=== PATIENT | male | born 1950 | race Caucasian/White ===

== ENCOUNTER → 2017-08-21 | Outpatient (CLI) | payer MEDICARE ==
[~2017-08-21] MED LIST: AMOX-358 PO; AMT25T PO; ASPI-983 PO; CARV3.12 PO; CARV6.25 PO; CLON0.5T3 PO; CLOP75TA69 PO; CYCL10TA9 PO; DILT240C87 PO; EPIN0.3P3 IJ; FAMO-119 PO; GABA800T PO; HYDR-3720 PO; HYDR-3812 PO; LORTAB; NEURONTIN; NITR0.4T SL; OXYC-471 PO; PRAV20TA3 PO; PRD20T PO; SIMV40TA4 PO; TIAZAC; ZOLP5TAB7 PO; [UNRECOGNIZED DRUG - OTHER]
--- NOTE | 2017-08-21 14:35 | Diagnostic Imaging Report ---
PA and lateral views of the chest. INDICATION: Chest pain. FINDINGS: The lungs are hyperinflated with no focal infiltrate. No effusion or pneumothorax. The mediastinum and connor appear unremarkable. The heart size is normal. Pulse generator projecting over the anterior left chest wall is seen. IMPRESSION: COPD. Dictated by: Dictated on workstation # [id number]
== END ==
LOC: RAD 14:09
PROVIDERS: ATTEND Family Medicine
DX: J44.9 Chronic obstructive pulmonary disease, unspecified (principal)
CPT/HCPCS: 71020

== ENCOUNTER 2017-08-28 06:46 | Day surgery (SDC) | payer MEDICARE ==
[2017-08-28] VITALS (9 sets, daily range): BP systolic 101–114; BP diastolic 67–88
[~2017-08-28] VITALS: Ht 180.3 cm; Wt 55.8 kg
[2017-08-28] MEDS ORDERED: HEParin (CATH LAB) 2,000 ML IV ONE (06:49)
[2017-08-28] MEDS ORDERED: NS IV 1000 ML 1,000 ML ONE (06:49)
[2017-08-28] MEDS ORDERED: LIDOCAINE 1% INJ 50 ML (XYLOCAINE) VIAL ONE (06:49)
[2017-08-28 07:16] LABS: MEAN PLATELET VOLUME 9.7 FL (7.4-10.4); RED BLOOD COUNT 4.53 10^6/uL (4.35-5.85); RED CELL DISTRIBUTION WIDTH 12.4 % (10.0-14.5); WHITE BLOOD COUNT 5.8 10^3/uL (4.3-11.0)
[2017-08-28 07:28] LABS: INR 0.9 (0.8-1.4); PROTHROMBIN TIME PATIENT 12.7 SEC (12.2-14.7)
[2017-08-28] MEDS ORDERED: NS IV 1000 ML 1,000 ML IV SCH ×3 (07:30→10:52)
[2017-08-28] MEDS ORDERED: CLON1TAB3 PO (07:33)
[2017-08-28] MEDS ORDERED: PRIM50TA PO (07:33)
[2017-08-28 07:43] LABS: ALANINE AMINOTRANSFERASE 13 U/L (0-55); ALBUMIN 4.2 GM/DL (3.2-4.5); ANION GAP 12 MMOL/L (5-14); ASPARTATE AMINO TRANSFERASE 24 U/L (5-34); BILIRUBIN,TOTAL 1.1 MG/DL (0.1-1.0); BLOOD UREA NITROGEN 17 MG/DL (7-18); BUN/CREATININE RATIO 17; CALCIUM 8.8 MG/DL (8.5-10.1); CARBON DIOXIDE 25 MMOL/L (21-32); CHLORIDE 101 MMOL/L (98-107); CHOLESTEROL 173 MG/DL (< 200); CREATININE SERUM 0.98 MG/DL (0.60-1.30); DIRECT LDL 95 MG/DL (1-129); GFR ESTIMATED > 60; GLUCOSE 76 MG/DL (70-105); POTASSIUM 3.6 MMOL/L (3.6-5.0); SODIUM 138 MMOL/L (135-145); TOTAL PROTEIN 7.1 GM/DL (6.4-8.2); TRIGLYCERIDES 86 MG/DL (<150); VLDL CHOLESTEROL 17 MG/DL (5-40)
[2017-08-28] MEDS ORDERED: fentaNYL INJECTION 100 MCG/2 ML AMP ONE (09:55)
[2017-08-28] MEDS ORDERED: MIDAZOLAM 2 MG/2 ML (VERSED) VIAL ONE (09:55)
[2017-08-28] MEDS ORDERED: diphenhydrAMINE 50 MG/ML INJ (BENADRYL) ONE (09:55)
--- NOTE | 2017-08-28 10:52 | Cardiac Procedure Note-CS/ASA ---
Pre-Procedure Note Pre-Op Procedure Note H&P Reviewed The H&P was reviewed, patient examined and no changes noted. Date H&P Reviewed: Aug 28, 2017 Time H&P Reviewed: 10:15 Conscious Sedation Pre-Proced Time Reviewed: 10:15 ASA Class: 3 Airway Mallampati Classification: ([place] appropriate class) I. II. III, IV Lungs Heart ASA score ASA 1: a normal healthy patient ASA 2: a patient with a mild systemic disease (mid diabetes, controlled hypertension, obesity ASA 3: a patient with a severe systemic disease that limits activity (angina , COPD, prior Myocardial infarction) ASA 4: a patient with an incapacitating disease that is a constant threat to life (CHF, renal failure) ASA 5: a moribund patient not expected to survive 24 hrs. (ruptured aneurysm) ASA 6: a declared brain patient whose organs are being harvested. For emergent operations, add the letter E after the classification Grade 2 Sedation Plan: Analgesia, Amnesia, Plan communicated to team members, Discussed options with patient/fam, Discussed risks with patient/fam Note The patient is an appropriate candidate to undergo the planned procedure, sedation, and anesthesia. The patient immediately re-assessed prior to indication. POORNIMA GRAVES MD FACP FAC CCDS Aug 28, 2017 10:52
--- NOTE | 2017-08-28 10:56 | Discharge Inst-Post CATH ---
Discharge Inst-CATH Post Cardiac Cath D/C Inst Follow Up/Plan F/u with Dr Ramsey in 2 weeks CARDIAC CATH DISCHARGE INSTRUCTIONS *Hold Metformin for 48 hours post heart cath. ACTIVITY * Go Home directly and rest. * Limit activity of the leg (or wrist if it was used) for 7 days including aerobics, swimming, jogging, bicycling, etc. * Restrict stair-climbing for 7 days if possible, if not, climb up with your non -cath leg, then bring together on the same step. * Avoid lifting, pushing, pulling or excessive movement of the affected extremity for 7 days. * Customary sexual activity may be resumed after 2 days-use caution not to use a position that strains or causes pain to the affected extremity. * No driving for 24 hours. * NO SMOKING. * Avoid straining for bowel movements for 7 days. * Gentle walking on level ground is allowed. * Returning to work will depend on the type of procedure and the results. Your doctor will discuss this with you. CALL YOUR DOCTOR FOR ANY OF THE FOLLOWING: *If bleeding from the puncture site occurs- Apply gentle pressure to site with clean cloth and call your doctor or EMS. * If a knot or lump forms under the skin, increases in size, or causes pain. * If bruising appears to be worsening or moving further down your leg instead of disappearing. * Temperature above 101 F. CARE OF YOUR GROIN INCISION; * Bruising or purple discoloration of the skin near the puncture site is common. * You may shower only, no bathtub bathing for 5 days. Be careful to avoid slipping as your leg may feel stiff. * If a closure device was used on your femoral artery, please see the attached guide regarding care of the device and your leg. * REMOVE the dressing from your groin the next day after your procedure in the shower. CARE OF YOUR WRIST INCISION; * Bruising or purple discoloration of the skin near the puncture site is common. * You may shower. * DO NOT submerge wrist. * Remove dressing in 24 hours. POORNIMA RAMSEY MD [facility] CCDS Aug 28, 2017 10:56
--- NOTE | 2017-08-28 10:57 | Discharge Inst-Cardiology ---
Discharge Inst-Cardiac Discharge Medications Continued Medications: Aspirin (Aspirin EC) 81 Mg Tablet.dr 81 MG PO BID Clonazepam (Clonazepam) 1 Mg Tablet 1 MG PO DAILY, TAB Clopidogrel Bisulfate (Plavix) 75 Mg Tablet 75 MG PO DAILY Cyclobenzaprine HCl (Cyclobenzaprine HCl) 10 Mg Tablet 10 MG PO PRN, #90 Epinephrine (Epipen 2-Jose) 0.3 Mg/0.3 Ml Auto.injct 0.3 MG IJ UD PRN for SHORTNESS OF BREATH, #1 PACKET 0 Refills Oxycodone HCl/Acetaminophen (Oxycodone-Acetaminophen 5-325) 1 Each Tablet 5 EACH PO, TAB Pravastatin Sodium (Pravastatin Sodium) 20 Mg Tablet 20 MG PO DAILY, TAB Primidone (Primidone) 50 Mg Tablet 50 MG PO HS, TAB Zolpidem Tartrate (Zolpidem Tartrate) 5 Mg Tablet 5 MG PO HS PRN for SLEEP Orders-Post D/C & Referrals Pneu Vac Indicated: Yes POORNIMA GRAVES MD FACP FAC CCDS Aug 28, 2017 10:57
[2017-08-28] MEDS ORDERED: PATIENT MAY USE OWN MEDS, ALL PO SCH (11:00)
--- NOTE | 2017-08-28 12:55 | CARDIAC CATHETERIZATION ---
DATE OF SERVICE: 08/28/2017 The patient is a 67-year-old man with known coronary artery disease who has been experiencing increasing shortness of breath, palpitations, chest discomfort. Cardiac catheterization was carried out today for further cardiac evaluation as the basis of his symptoms. PROCEDURE: He was brought to the cardiac catheterization laboratory in a fasting state. Right groin was prepared and draped in the usual sterile fashion. 1% lidocaine was used for local anesthesia. Modified Seldinger technique to advance a 5-Montserratian sheath into the right femoral artery. A 5-Montserratian JL4 catheter used for left coronary angiography. 5-Montserratian JR4 catheter was used for right coronary angiography. 5-Montserratian pigtail catheter was used for left heart catheterization and left ventricular angiography. 5-Montserratian pigtail catheter was pulled back to the aortic arch and aortic arch angiography was performed with runoff down to the level of the aortoiliac bifurcation. The catheter was removed. Angiography of the right femoral artery was carried out through the sheath. Mynx was used to achieve hemostasis. He tolerated the procedure well. HEMODYNAMICS: Left ventricular end-diastolic pressure following coronary angiography was 9 mmHg. There was no significant pressure gradient on pullback across the aortic valve. Ascending aortic pressure was 105/62 with a mean of 82 mmHg. LEFT VENTRICULAR ANGIOGRAPHY: Left ventricular angiography was carried out in the right anterior oblique projection. Global left ventricular systolic function is normal. No regional wall motion abnormalities are seen. Left ventricular ejection fraction is approximately 60%. There does not appear to be significant mitral regurgitation. AORTIC ARCH ANGIOGRAPHY: Aortic arch angiography did not indicate any significant thoracic aortic aneurysm or dissection, to the extent visualized. The neck arteries, to the extent seen, do not exhibit any significant obstructive disease. No abdominal aortic aneurysm is seen either. CORONARY ANGIOGRAPHY: Left main coronary artery is free of significant disease. Left anterior descending artery has a widely patent standard area in its proximal and mid portions without any significant restenosis. The first obtuse marginal branch, the left circumflex is of a high origin and has approximately 50% stenosis at its ostium and is of small caliber. The right coronary artery is dominant and does not exhibit significant disease. There appears to be only mild plaque involving the right coronary artery. CONCLUSIONS: 1. Angiographically mild coronary artery disease. Widely patent stent in the proximal and mid left anterior descending artery. Approximately 50% ostial stenosis of small caliber, high first obtuse marginal branch of the left circumflex artery. 2. Normal global left ventricular systolic function with an ejection fraction approximately 60%. 3. Normal left ventricular end-diastolic pressure. 4. No evidence of any thoracic aortic aneurysm or dissection. 5. No significant mitral regurgitation. DISCUSSION AND RECOMMENDATIONS: Based on results of this study, his symptoms do not appear to be of cardiac origin. Continuing cardiac risk factor modification is advised and was discussed. Outpatient followup is advised. Job ID: [id number] DocumentID: [id number] Dictated Date: 08/28/2017 11:14:51 [employer] Date: 08/28/2017 12:55:19 Dictated By: POORNIMA GRAVES MD, MA, FACP, FACC, MTDD
== END 2017-08-28 14:00 | disposition home or self-care (01) ==
LOC: CATH 06:46 → SURG 11:09 → CATH 14:00
PROVIDERS: ATTEND Internal Medicine Cardiovascular Disease
DX: R07.9 Chest pain, unspecified (principal); I25.10 Atherosclerotic heart disease of native coronary artery without angina pectoris; E78.5 Hyperlipidemia, unspecified; R53.83 Other fatigue; Z95.5 Presence of coronary angioplasty implant and graft; Z79.02 Long term (current) use of antithrombotics/antiplatelets; Z79.82 Long term (current) use of aspirin; Z79.899 Other long term (current) drug therapy; Z87.891 Personal history of nicotine dependence
CPT/HCPCS: 36221; 36415; 80053; 80061; 85027; 85610; 85730; 87081; 93005; 93458

== ENCOUNTER → 2017-09-05 | Outpatient (CLI) | payer MEDICARE ==
[~2017-09-05] MED LIST changes: +CLON1TAB3 PO; +PRIM50TA PO
== END ==
LOC: RT 09:38
PROVIDERS: ATTEND Family Medicine
DX: J44.9 Chronic obstructive pulmonary disease, unspecified (principal); R06.09 Other forms of dyspnea
CPT/HCPCS: 94060; 94726; 94729

== ENCOUNTER → 2017-09-11 | Outpatient (CLI) | payer MEDICARE ==
[~2017-09-11] MED LIST changes: +IOHEXOL 350 MG/ML 150 ML (OMNIPAQUE 350) VIAL IV ONE; +NS 100 ML (IVPB) BAG IV ONE
--- NOTE | 2017-09-11 11:31 | Diagnostic Imaging Report ---
PROCEDURE: CT angiography of the chest with contrast. TECHNIQUE: Multiple contiguous axial images were obtained through the chest after uneventful bolus administration of intravenous contrast. Reconstructed CTA MIP acquisitions were also performed. INDICATION: Dyspnea. COMPARISON: None. FINDINGS: There is no evidence of pulmonary embolus or other acute vascular abnormality. There is no evidence of pneumothorax or pleural effusion. There is mild pleural parenchymal scarring in the lung apices and minimal paraseptal emphysematous change of the upper lobes. There is minimal atelectasis or scarring at the left lung base. Lungs are otherwise clear. There is no adenopathy. No pericardial effusion is demonstrated. No acute abnormality is seen in the visualized upper abdomen. No acute osseous abnormality is demonstrated. IMPRESSION: 1. No evidence for pulmonary embolus or other acute abnormalities in the chest. Nonacute minimal findings in the lungs as described above. Dictated by: Dictated on workstation # [id number]
== END ==
LOC: RAD 09:36
PROVIDERS: ATTEND Family Medicine
DX: J98.4 Other disorders of lung (principal)
CPT/HCPCS: 71275

== ENCOUNTER 2018-01-19 17:24 | Emergency (ER) | payer MEDICARE, OTHER ==
[~2018-01-19] VITALS: Ht 180.3 cm; Wt 58.1 kg
[~2018-01-19 17:24] MED LIST changes: +ACHD5005 PO; -HYDR-3812 PO; -IOHEXOL 350 MG/ML 150 ML (OMNIPAQUE 350) VIAL IV ONE; -NS 100 ML (IVPB) BAG IV ONE
[2018-01-19] MEDS ORDERED: KETOROLAC 30 MG/ML VIAL IVP STA (18:02)
[2018-01-19] MEDS ORDERED: LACTATED RINGERS 1,000 ML IV ONE (18:02)
--- NOTE | 2018-01-19 18:08 | ED Abdominal Pain ---
General Chief Complaint: Abdominal/GI Problems Stated Complaint: R SIDE BACK/ABD PAIN Nursing Triage Note: PATIENT STATES THAT HE WOKE UP THIS MORNING WITH AN "ACHING" ON HIS RIDE SIDE. IT AVITIA AND PAIN RADIATES TO GROIN. Sepsis Screen: No Definite Risk Source of Information: Patient Exam Limitations: No Limitations History of Present Illness Date Seen by Provider: January 19, 2018 Time Seen by Provider: 18:00 Initial Comments PT ARRIVES VIA POV C/O RIGHT MID ABDOMEN AND FLANK PAIN THAT RADIATES DOWN TO RIGHT GROIN AREA-- BEGAN ON WAKING THIS AM PAIN IS BURNING AND ACHING NOTHING WORSENS OR IMPROVES PAIN. TOOK OXYCODONE X 1 TODAY WITHOUT RELIEF ( TAKES OCCASIONALLY FOR CHRONIC BACK PAIN ) + NAUSEA, NO VOMITING. ATE BELGIAN SAUSAGE JUST PRIOR TO ARRIVAL NORMAL BM TODAY NO URINARY SYMPTOMS NO FEVER NO HISTORY OF SIMILAR Allergies and Home Medications Allergies Coded Allergies: No Known Drug Allergies (Unverified , 01/30/18) Home Medications Aspirin 81 Mg Tablet.dr, 81 MG PO BID, (Reported) Clonazepam 1 Mg Tablet, 1 MG PO DAILY, (Reported) Clopidogrel Bisulfate 75 Mg Tablet, 75 MG PO DAILY, (Reported) Cyclobenzaprine HCl 10 Mg Tablet, 10 MG PO PRN, (Reported) Epinephrine 0.3 Mg/0.3 Ml Auto.injct, 0.3 MG IJ UD PRN for SHORTNESS OF BREATH Prescribed by: ALEXIS DAS on 08/10/162158 Ondansetron 4 Mg Tab.rapdis, 4 MG PO Q4H Prescribed by: JUAN IRWIN on 01/19/181951 Pravastatin Sodium 20 Mg Tablet, 20 MG PO DAILY, (Reported) Primidone 50 Mg Tablet, 50 MG PO HS, (Reported) Tamsulosin HCl 0.4 Mg Cap, 0.4 MG PO DAILY Prescribed by: JUAN IRWIN on 01/19/181951 Zolpidem Tartrate 5 Mg Tablet, 5 MG PO HS PRN for SLEEP, (Reported) Patient Home Medication List Home Medication List Reviewed: Yes Review of Systems Constitutional: no symptoms reported Respiratory: No Symptoms Reported Cardiovascular: No Symptoms Reported Gastrointestinal: Abdominal Pain; Denies Constipated, Denies Diarrhea; Nausea; Denies Vomiting Genitourinary: See HPI, Flank Pain Musculoskeletal: see HPI, back pain Skin: no symptoms reported Psychiatric/Neurological: No Symptoms Reported Endocrine: No Symptoms Reported Hematologic/Lymphatic: No Symptoms Reported Past Mvewirc-Mgyccx-Ciqsas Hx Patient Social History Alcohol Use: Occasionally Uses Recreational Drug Use: No Smoking Status: Former Smoker (<1 PPD, QUIT 1975) Type Used: Cigarettes Former Smoker, Quit: Jun 20, 1976 2nd Hand Smoke Exposure: No Recent Foreign Travel: No Contact w/Someone Who Travel: No Recent Infectious Disease Expo: No Recent Hopitalizations: No (MULTIPLE TIMES DUE TO BACK, 5 YRS AGO HEART) Physical Abuse: No Sexual Abuse: No Immunizations Up To Date Tetanus Booster (TDap): More than 5yrs Date of Influenza Vaccine: Jul 10, 2017 Seasonal Allergies Seasonal Allergies: No Past Medical History Surgeries: Yes (BACK SURGERY X 3; LEFT PATELLA FX/REPAIR; CARDIAC CATHS-- STENTS X 5; LOOP RECORDER HEART MONITOR) Cardiac, Coronary Stent, Orthopedic Respiratory: Yes (HAS CHRONIC DYSPNEA, NO PULMONARY DX) Cardiac: Yes (CARDIAC STENTS X5--LAST ONE PLACED 1 1/2 YRS AGO; LOOP RECORDER IN PLACE;) Coronary Artery Disease, Heart Attack, High Cholesterol, Hypertension, Irregular Heartbeat Neurological: Yes (TREMORS) Reproductive Disorders: No Genitourinary: No Gastrointestinal: No Musculoskeletal: Yes (LEFT PATELLLA FX/REPAIR) Chronic Back Pain, Fractures Endocrine: No HEENT: No Cancer: No Psychosocial: Yes Sleep Difficulties, Anxiety Nursing Suicide Risk Score: 0 Integumentary: No Blood Disorders: No Family Medical History No Pertinent Family Hx Physical Exam Vital Signs Capillary Refill : Less Than 3 Seconds General Appearance: no apparent distress, thin, other (DOES NOT APPEAR TO BE IN ANY DISCOMFORT AT THIS TIME. 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, no motor/sensory deficits, alert, normal mood/affect, oriented x 3 Skin: normal color, warm/dry; No rash Progress/Results/Core Measures Results/Orders Lab Results Laboratory Tests Test 01/19/18 17:55 01/19/18 18:25 Range/Units Urine Color YELLOW Urine Clarity CLEAR Urine pH 5 5-9 Urine Specific [place] 1.020 1.016-1.022 Urine Protein NEGATIVE NEGATIVE Urine Glucose (UA) NEGATIVE NEGATIVE Urine Ketones NEGATIVE NEGATIVE Urine Nitrite NEGATIVE NEGATIVE Urine Bilirubin NEGATIVE NEGATIVE Urine Urobilinogen NORMAL NORMAL MG/DL Urine Leukocyte Esterase NEGATIVE NEGATIVE Urine RBC (Auto) 2+ H NEGATIVE Urine RBC 0-2 /HPF Urine WBC NONE /HPF Urine Squamous Epithelial Cells 0-2 /HPF Urine Crystals NONE /LPF Urine Bacteria NEGATIVE /HPF Urine Casts NONE /LPF Urine Mucus NEGATIVE /LPF Urine Culture Indicated NO White Blood Count 6.1 4.3-11.0 10^3/uL Red Blood Count 4.42 4.35-5.85 10^6/uL Hemoglobin 13.3 13.3-17.7 G/DL Hematocrit 39 L 40-54 % Mean Corpuscular Volume 88 80-99 FL Mean Corpuscular Hemoglobin 30 25-34 PG Mean Corpuscular Hemoglobin Concent 34 32-36 G/DL Red Cell Distribution Width 12.6 10.0-14.5 % Platelet Count 201 130-400 10^3/uL Mean Platelet Volume 9.7 7.4-10.4 FL Neutrophils (%) (Auto) 52 42-75 % Lymphocytes (%) (Auto) 34 12-44 % Monocytes (%) (Auto) 12 0-12 % Eosinophils (%) (Auto) 1 0-10 % Basophils (%) (Auto) 0 0-10 % Neutrophils # (Auto) 3.2 1.8-7.8 X 10^3 Lymphocytes # (Auto) 2.1 1.0-4.0 X 10^3 Monocytes # (Auto) 0.7 0.0-1.0 X 10^3 Eosinophils # (Auto) 0.1 0.0-0.3 10^3/uL Basophils # (Auto) 0.0 0.0-0.1 10^3/uL Sodium Level 140 135-145 MMOL/L Potassium Level 4.4 3.6-5.0 MMOL/L Chloride Level 104 98-107 MMOL/L Carbon Dioxide Level 28 21-32 MMOL/L Anion Gap 8 5-14 MMOL/L Blood Urea Nitrogen 9 7-18 MG/DL Creatinine 1.09 0.60-1.30 MG/DL Estimat Glomerular Filtration Rate > 60 BUN/Creatinine Ratio 8 Glucose Level 99 70-105 MG/DL Calcium Level 9.3 8.5-10.1 MG/DL Total Bilirubin 0.8 0.1-1.0 MG/DL Aspartate Amino Transf (AST/SGOT) 18 5-34 U/L Alanine Aminotransferase (ALT/SGPT) 10 0-55 U/L Alkaline Phosphatase 61 40-136 U/L Total Protein 7.0 6.4-8.2 GM/DL Albumin 4.2 3.2-4.5 GM/DL Amylase Level 56 25-125 U/L Lipase 23 8-78 U/L My Orders Orders - JUAN IRWIN DO Ct Abd/Pelvis Wo(Kidney Stone) (01/19/18 18:02) Amylase (01/19/18 18:02) Cbc With Automated Diff (01/19/18 18:) Comprehensive Metabolic Panel (01/19/18 18:02) Lipase (01/19/18 18:02) Ua Culture If Indicated (01/19/18 18:02) Acute Abd Series (01/19/18 18:02) Saline Lock/Iv-Start (01/19/18 18:02) Ondansetron Injection (Zofran Injectio (01/19/18 18:15) Ketorolac Injection (Toradol Injection) (01/19/18 18:02) Saline Lock/Iv-Start (01/19/18 18:02) Lactated Ringers (Lr 1000 Ml Iv Solution (01/19/18 18:02) Morphine Injection (Morphine Injection (01/19/18 19:30) Alfuzosin (Not Stocked) (Uroxatral (Not (01/19/18 19:30) Rx-Naproxen (Rx-Naprosyn) (01/19/18 19:30) Rx-Ondansetron Po (Rx-Zofran Po) (01/19/18 19:51) Iv Push Acid Correction Hand Ed (01/19/18 ) Medications Given in ED Vital Signs/I&O Blood Pressure Mean: 76 Progress Progress Note : Progress Note PAIN FREE AT DISMISSAL Diagnostic Imaging Comments XRAYS AND CT ABDOMEN/PELVIS--BILATERAL INTRARENAL STONES, LARGE LEFT RENAL STONE. NO HYDRONEPHROSIS--REPORT AT 1914, AND DISCUSSED WITH RADIOLOGIST AT 1920 Reviewed: Reviewed by Me, Discussed w/Radiologist Departure Impression Primary Impression: RIGHT FLANK , RLQ AND GROIN PAIN Additional Impressions: INTRARENAL STONES Microscopic hematuria Disposition: 01 HOME, SELF-CARE Condition: Improved Departure-Patient Inst. Referrals: EDDRA OTT DO (PCP/Family) Primary Care Physician SOFI DUNN MD Patient Instructions: Kidney Stones (DC) Add. Discharge Instructions: LOTS OF CLEAR LIQUIDS TAKE YOUR OXYCODONE EVERY 4 HOURS NEEDED FOR PAIN FOLLOW UP WITH DR. DUNN NEXT WEEK FOR FURTHER CARE RETURN TO ER IF WORSE All discharge instructions reviewed with patient and/or family. Voiced understanding. Scripts Ondansetron (Zofran Odt) 4 Mg Tab.rapdis 4 MG PO Q4H for Nausea/Vomiting, #10 TAB Prov: JUAN IRWIN DO 01/19/18 Tamsulosin HCl (Flomax) 0.4 Mg Cap 0.4 MG PO DAILY, #10 CAP Prov: JUAN IRWIN DO 01/19/18 JUAN IRWIN DO January 19, 2018 18:08
[2018-01-19 18:12] LABS: BILIRUBIN,URINE NEGATIVE (NEGATIVE); CLARITY,URINE CLEAR; COLOR,URINE YELLOW; GLUCOSE, URINE (UA) NEGATIVE (NEGATIVE); KETONES,URINE NEGATIVE (NEGATIVE); LEUKOCYTE ESTERASE ,URINE NEGATIVE (NEGATIVE); NITRITE,URINE NEGATIVE (NEGATIVE); PH,URINE 5 (5-9); PROTEIN,URINE NEGATIVE (NEGATIVE); UROBILINOGEN,URINE NORMAL (NORMAL)
[2018-01-19] MEDS ORDERED: ONDANSETRON 4 MG/2 ML (SDV) Z0FRAN IVP ONE (18:15)
[2018-01-19 18:22] LABS: BACTERIA,URINE NEGATIVE /HPF; RBC,URINE 0-2 /HPF; SQUAMOUS EPITHELIAL CELL,UR 0-2 /HPF
[2018-01-19 18:44] LABS: BASOPHILS % (AUTO) 0 % (0-10); EOSINOPHILS # (AUTO) 0.1 10^3/uL (0.0-0.3); EOSINOPHILS % (AUTO) 1 % (0-10); HEMATOCRIT 39 % (40-54); HEMOGLOBIN 13.3 G/DL (13.3-17.7); LYMPHOCYTES # (AUTO) 2.1 X 10^3 (1.0-4.0); LYMPHOCYTES % (AUTO) 34 % (12-44); MEAN CORPUSCULAR HEMOGLOBIN 30 PG (25-34); MEAN CORPUSCULAR HGB CONC 34 G/DL (32-36); MEAN CORPUSCULAR VOLUME 88 FL (80-99); MEAN PLATELET VOLUME 9.7 FL (7.4-10.4); MONOCYTES # (AUTO) 0.7 X 10^3 (0.0-1.0); MONOCYTES % (AUTO) 12 % (0-12); NEUTROPHILS # (AUTO) 3.2 X 10^3 (1.8-7.8); NEUTROPHILS % (AUTO) 52 % (42-75); PLATELET COUNT 201 10^3/uL (130-400); RED BLOOD COUNT 4.42 10^6/uL (4.35-5.85); RED CELL DISTRIBUTION WIDTH 12.6 % (10.0-14.5); WHITE BLOOD COUNT 6.1 10^3/uL (4.3-11.0)
[2018-01-19 18:58] LABS: ALANINE AMINOTRANSFERASE 10 U/L (0-55); ALBUMIN 4.2 GM/DL (3.2-4.5); ALKALINE PHOSPHATASE 61 U/L (40-136); AMYLASE 56 U/L (25-125); BILIRUBIN,TOTAL 0.8 MG/DL (0.1-1.0); BUN/CREATININE RATIO 8; CALCIUM 9.3 MG/DL (8.5-10.1); CARBON DIOXIDE 28 MMOL/L (21-32); CHLORIDE 104 MMOL/L (98-107); CREATININE SERUM 1.09 MG/DL (0.60-1.30); GFR ESTIMATED > 60; GLUCOSE 99 MG/DL (70-105); LIPASE 23 U/L (8-78); POTASSIUM 4.4 MMOL/L (3.6-5.0); SODIUM 140 MMOL/L (135-145)
--- NOTE | 2018-01-19 19:04 | Diagnostic Imaging Report ---
PROCEDURE: CT urinary tract, rule out kidney stone. TECHNIQUE: Multiple contiguous axial images were obtained through the abdomen and pelvis without the use of intravenous contrast. INDICATION: Back pain radiating anteriorly. FINDINGS: There are bilateral intrarenal stones, the largest is in the left renal pelvis near the ureteropelvic junction, measuring 12 mm x 7.9 mm. There was, however, no proximal hydronephrosis. No appreciable opaque ureteral stone. No bladder calculi. No perinephric or periureteric edema. The appendix is air-containing, visualized and normal. There is no ascites, abscess, hematoma or fluid collection. There is no evidence for diverticulitis. The liver, spleen, adrenals and pancreas are unremarkable. The gallbladder is unremarkable. No pneumatosis or free gas. No focal inflammatory process. IMPRESSION: Bilateral nephrolithiasis with a large renal pelvic stone on the left but no hydronephrosis. Normal appendix with no diverticulitis. No inflammatory process or acute findings. Dictated by: Dictated on workstation # [id number]
--- NOTE | 2018-01-19 19:12 | Diagnostic Imaging Report ---
INDICATION: Back pain. EXAMINATION: Acute abdomen series. FINDINGS: Loop recorder overlies the left chest. The lungs are hyperexpanded but free of infiltrate. No failure, effusion or pneumothorax. The bowel gas pattern is unremarkable. There is no abnormal fecal load. There is a large calcification in the left upper quadrant which may be within the left kidney or renal pelvis. It measures 10.7 mm. IMPRESSION: Hyperexpanded clear lungs. Left upper quadrant large calcifications likely related to the urinary tract, pelvic versus parenchymal. Dictated by: Dictated on workstation # [id number]
[2018-01-19] MEDS ORDERED: RX-NAPROXEN (NAPROSYN) 250 MG TAB PPK#4 PO STA (19:30)
[2018-01-19] MEDS ORDERED: morphine INJ 10 MG/ML 1ML (SYR OR VIAL) IVP STA (19:30)
[2018-01-19] MEDS ORDERED: ALFUZOSIN HCL 10 MG TAB (UROXATRAL) PO SCH (19:30)
[2018-01-19] MEDS ORDERED: RX-ONDANSETRON 4 MG ODT (ZOFRAN) PPK #4 PO STA (19:51)
[2018-01-19] MEDS ORDERED: ONDA4TAB8 PO (19:52)
[2018-01-19] MEDS ORDERED: KETO10TA PO (19:52)
[2018-01-19] MEDS ORDERED: TAMS0.4C98 PO (19:52)
[2018-01-19 20:25] VITALS: BP 95/67
== END 2018-01-19 20:25 | disposition home or self-care (01) ==
LOC: EDUNIT# 17:24 → ER 17:26
DX: N20.0 Calculus of kidney (principal); R10.31 Right lower quadrant pain; R10.32 Left lower quadrant pain; R31.29 Other microscopic hematuria; G47.9 Sleep disorder, unspecified; F41.9 Anxiety disorder, unspecified
CPT/HCPCS: 36415; 74022; 74176; 80053; 81000; 82150; 83690; 85025; 96361; 96374; 96375

== ENCOUNTER → 2018-01-21 | Outpatient (CLI) | payer MEDICARE, OTHER ==
[~2018-01-21] MED LIST changes: +HYDR-3875 PO; +KETO10TA PO; +NITR-65 PO; +ONDA4TAB8 PO; +TAMS0.4C98 PO
--- NOTE | 2018-01-21 14:21 | Diagnostic Imaging Report ---
EXAMINATION: Abdomen at 11:53 a.m. INDICATION: Nephrolithiasis, abdominal pain. FINDINGS: The CT abdomen/pelvis exam performed on 01/19/2018 noted a 1 cm calculus in the ureteropelvic junction on the left. There are also a few much smaller nonobstructive calculi within the left kidney. Those findings are again evident on this study. The calculus does not appear to have changed significantly in position. No new abnormality has developed otherwise. There is gas and fecal material throughout the colon in a nonspecific fashion. This appearance is similar to the prior plain film exam of 01/19/2018. There is no mass or organomegaly. The osseous structures are intact. The postsurgical changes at L4-5 seen previously are again evident and no different. IMPRESSION: 1. The obstructive calculus in the left renal pelvis seen on the previous exam is again evident and unchanged in position. 2. The overall appearance of the abdomen itself has not changed significantly either. No new abnormality has developed. Dictated by: Dictated on workstation # [id number]
== END ==
LOC: RAD 11:25
PROVIDERS: ATTEND Urology
DX: N20.0 Calculus of kidney (principal)
CPT/HCPCS: 74018

== ENCOUNTER 2018-01-30 05:40 | Outpatient (CLI) | payer MEDICARE ==
[~2018-01-30] VITALS: Ht 180.3 cm; Wt 60.1 kg
[~2018-01-30 05:40] MED LIST changes: -HYDR-3875 PO; -NITR-65 PO
[2018-01-30 11:48] VITALS: BP 123/76
== END 2018-01-30 12:09 | disposition home or self-care (01) ==
LOC: PREOP 05:40
PROVIDERS: ATTEND Urology
DX: Z01.818 Encounter for other preprocedural examination (principal); Z11.2 Encounter for screening for other bacterial diseases
CPT/HCPCS: 87081

== ENCOUNTER 2018-02-05 07:39 | Day surgery (SDC) | payer MEDICARE, OTHER ==
[~2018-02-05] VITALS: Ht 180.3 cm; Wt 60.1 kg
--- NOTE | 2018-02-05 07:16 | Progress Note-Pre Operative ---
Pre-Operative Progress Note H&P Reviewed The H&P was reviewed, patient examined and no changes noted. Date Seen by Provider: February 05, 2018 Time Seen by Provider: 07:51 Date H&P Reviewed: February 05, 2018 Time H&P Reviewed: 07:51 Pre-Operative Diagnosis: LT RENAL STONE SOFI DUNN MD February 05, 2018 7:16 am
[2018-02-05] MEDS ORDERED: NS (IVPB) 50 ML ONE (07:51)
[2018-02-05 07:55] VITALS: BP 102/83
[2018-02-05] MEDS ORDERED: cefTRIAXone INJECTION 1,000 MG in NS (IVPB) 50 ML IV ONE (08:15)
--- NOTE | 2018-02-05 08:18 | Diagnostic Imaging Report ---
INDICATION: Preop evaluation for lithotripsy. COMPARISON: 01/21/2018. FINDINGS: Stable left proximal ureteral stone measuring approximately 7 mm. Right-sided renal stones are not seen radiographically. Nonobstructive bowel gas pattern. No free intraperitoneal air. Postoperative changes in the lower lumbar spine with posterior fusion and laminectomy. IMPRESSION: Stable 7 mm left proximal ureteral stone. Dictated by: Dictated on workstation # [id number]
[2018-02-05] MEDS: LACTATED RINGERS 1,000 ML IV PRN ×2 (08:30→09:45)
[2018-02-05] MEDS ORDERED: MIDAZOLAM 2 MG/2 ML (VERSED) VIAL ONE (09:02)
[2018-02-05] MEDS ORDERED: fentaNYL INJECTION 100 MCG/2 ML AMP ONE (09:02)
[2018-02-05] MEDS ORDERED: proPOfol 200 MG/20 ML (DIPRIVAN) VIAL IV ONE (09:02)
[2018-02-05] MEDS ORDERED: LIDOCAINE PF 2% 5 ML (XYLOCAINE) VIAL ONE (09:03)
[2018-02-05] MEDS ORDERED: SEVOFLURANE (ULTANE) 15 ML INHAL SOLN ONE ×2 (09:16→09:47)
[2018-02-05] MEDS ORDERED: KETOROLAC 30 MG/ML VIAL ONE (09:33)
[2018-02-05] MEDS ORDERED: FUROSEMIDE 40 MG/4 ML INJ (LASIX) ONE (09:33)
[2018-02-05] MEDS: cefTRIAXone 1 GM (ROCEPHIN) VIAL ONE ×2 (09:45→11:28)
--- NOTE | 2018-02-05 09:50 | Discharge Inst-Urology ---
Discharge Inst-Urology Discharge Medications New, Converted, or Re-newed RX: RX on Chart Patient Instructions/Follow Up Plan Please make appointment to been seen in office Sunday 02/25. KUB prior to it and stay OFF ASA AND PLAVIX KUB on way home Post ESWL instructions Increase oral fluids for 48 hours and then as needed. Diet and Activity as tolerated. If questions or concerns contact your physician Or seek help at emergency department. SOFI DUNN MD February 05, 2018 9:50 am
--- NOTE | 2018-02-05 09:53 | Progress Note-Post Operative ---
Post-Operative Progess Note Surgeon (s)/Promotional Marketing Analyst (s) Surgeon SOFI DUNN MD Promotional Marketing Analyst: N/A Pre-Operative Diagnosis LT UPJ STONE Post-Operative Diagnosis SAME Procedure & Operative Findings Date of Procedure 02/05/18 Procedure Performed/Findings LT ESWL Anesthesia Type GENERAL Estimated Blood Loss Estimated blood loss (mL): N/A Specimens/Packing Specimens Removed N/A Packing: N/A SOFI DUNN MD February 05, 2018 9:53 am
--- OUTSIDE RECORDS SUMMARY | 2018-02-05 10:28 | XMS REPORT | Continuity of Care Document ---
Author Author [facility] Organization [facility] Address Unknown Phone Unavailable Allergies Active Description Code Type Severity Reaction Onset Reported/Identified Relationship to Patient Clinical Status Yes No Known Drug Allergies [id number] Drug Allergy Unknown N/A 01/30/2018 Medications There is no data. Problems Date Dx Coded Attending Type Code Diagnosis Diagnosed By 06/01/2015 POORNIMA GRAVES MD, FACC FACP CCDS Ot 333.1 TREMOR NEC 06/01/2015 POORNIMA GRAVES MD, FACCP CCDS Ot 414.01 CORONARY ATHEROSCLEROSIS OF [place] CORON 06/01/2015 POORNIMA GRAVES MD, FACC FACP CCDS Ot 786.59 CHEST PAIN NEC 06/01/2015 POORNIMA GRAVES MD, FACC FACP CCDS Ot V15.82 HISTORY OF TOBACCO USE 06/01/2015 POORNIMA GRAVES MD, FACC FACP CCDS Ot V45.82 PERCUTANEOUS TRANSLUM CORON ANGIOPLASTY 06/01/2015 POORNIMA GRAVES MD, FACC FACP CCDS Ot V58.67 LONG-TERM (CURRENT) USE OF INSULIN 11/08/2015 POORNIMA GRAVES MD, FACC FACP CCDS Ot G25.0 11/08/2015 POORNIMA GRAVES MD, FACC FACP CCDS Ot I25.10 11/08/2015 POORNIMA GRAVES MD, FACC FACP CCDS Ot R00.2 11/08/2015 ELY WILLETT FACC ALI FACP CCDS Ot Z79.02 11/08/2015 ELY WILLETT FACC ALI FACP CCDS Ot Z79.899 11/23/2015 POORNIMA GRAVES MD, FACC FACP CCDS Ot G25.0 11/23/2015 POORNIMA GRAVES MD, FACC FACP CCDS Ot I25.10 11/23/2015 ELY WILLETT FACC ALI FACP CCDS Ot R00.2 11/23/2015 POORNIMA GRAVES MD, FACC FACP CCDS Ot Z79.02 11/23/2015 ELY MD FACC, ALI FACP CCDS Ot Z79.899 01/03/2016 ELY WILLETT FACC, ALI FACP CCDS Ot G25.0 ESSENTIAL TREMOR 01/03/2016 ELY MD FAC, ALI FACP CCDS Ot I25.10 ATHSCL HEART DISEASE OF [place] CORONARY 01/03/2016 ELY MD FACC, ALI FACP CCDS Ot R00.2 PALPITATIONS 01/03/2016 ELY MD FACC, ALI FACP CCDS Ot Z79.02 DATABASES SOFTWARE CONSULTANT (CURRENT) USE OF ANTITHROMBOTI 01/03/2016 ELY MD FACC, ALI FACP CCDS Ot Z79.899 OTHER INTERMEDIATE (CURRENT) DRUG THERAPY 02/03/2016 ELY WILLETT FACC, ALI FACP CCDS Ot G25.0 ESSENTIAL TREMOR 02/03/2016 ELY MD FACC, ALI FACP CCDS Ot I25.10 ATHSCL HEART DISEASE OF [place] CORONARY 02/03/2016 ELY WILLETT FACC, ALI FACP CCDS Ot R00.2 PALPITATIONS 02/03/2016 ELY WILLETT [facility], ALI FACP CCDS Ot Z79.02 DATABASES SOFTWARE CONSULTANT (CURRENT) USE OF ANTITHROMBOTI 02/03/2016 ELY WILLETT FAC, ALI FACP CCDS Ot Z79.899 OTHER DATABASES SOFTWARE CONSULTANT (CURRENT) DRUG THERAPY 03/16/2016 ELY WILLETT FAC, ALI FACP CCDS Ot G25.0 ESSENTIAL TREMOR 03/16/2016 ELY WILLETT FAC, ALI FACP CCDS Ot I25.10 ATHSCL HEART DISEASE OF [place] CORONARY 03/16/2016 ELY WILLETT FAC, ALI FACP CCDS Ot R00.2 PALPITATIONS 03/16/2016 ELY WILLETT [facility], ALI FACP CCDS Ot Z79.02 DATABASES SOFTWARE CONSULTANT (CURRENT) USE OF ANTITHROMBOTI 03/16/2016 ELY WILLETT FACC, ALI FACP CCDS Ot Z79.899 OTHER INTERMEDIATE (CURRENT) DRUG THERAPY 05/21/2016 ALEXIS DEAN Ot I10 ESSENTIAL (PRIMARY) HYPERTENSION 05/21/2016 ALEXIS DEAN Ot S61.452A OPEN BITE OF LEFT HAND, INITIAL ENCOUNTE 05/21/2016 ALEXIS DEAN Ot W54.0XXA BITTEN BY DOG, INITIAL ENCOUNTER 05/21/2016 PIPPA PA, ALEXIS L Ot Y99.8 OTHER EXTERNAL CAUSE STATUS 05/21/2016 ALEXIS DEAN Ot Z20.3 CONTACT WITH AND (SUSPECTED) EXPOSURE TO 05/21/2016 ALEXIS DEAN Ot Z23 ENCOUNTER FOR IMMUNIZATION 05/21/2016 ALEXIS DEAN Ot Z79.82 DATABASES SOFTWARE CONSULTANT (CURRENT) USE OF ASPIRIN 05/21/2016 ALEXIS DEAN Ot Z79.899 OTHER INTERMEDIATE (CURRENT) DRUG THERAPY 05/21/2016 ALEXIS DEAN Ot Z95.5 PRESENCE OF CORONARY ANGIOPLASTY IMPLANT 06/06/2016 ALEXIS DEAN Ot I10 ESSENTIAL (PRIMARY) HYPERTENSION 06/06/2016 ALEXIS DEAN Ot S61.452A OPEN BITE OF LEFT HAND, INITIAL ENCOUNTE 06/06/2016 ALEXIS DEAN Ot W54.0XXA BITTEN BY DOG, INITIAL ENCOUNTER 06/06/2016 ALEXIS DEAN Ot Y99.8 OTHER EXTERNAL CAUSE STATUS 06/06/2016 ALEXIS DEAN Ot Z20.3 CONTACT WITH AND (SUSPECTED) EXPOSURE TO 06/06/2016 ALEXIS DEAN Ot Z23 ENCOUNTER FOR IMMUNIZATION 06/06/2016 ALEXIS DEAN Ot Z79.82 DATABASES SOFTWARE CONSULTANT (CURRENT) USE OF ASPIRIN 06/06/2016 ALEXIS DEAN Ot Z79.899 OTHER INTERMEDIATE (CURRENT) DRUG THERAPY 06/06/2016 ALEXIS DEAN Ot Z95.5 PRESENCE OF CORONARY ANGIOPLASTY IMPLANT 06/15/2016 ROSALINDA DOS SANTOS DO Ot Z01.818 ENCOUNTER FOR OTHER PREPROCEDURAL EXAMIN 06/15/2016 ROSALINDA DOS SANTOS DO Ot Z12.11 ENCOUNTER FOR SCREENING FOR MALIGNANT NE 06/19/2016 ROSALINDA DOS SANTOS DO Ot Z01.818 ENCOUNTER FOR OTHER PREPROCEDURAL EXAMIN 06/19/2016 ROSALINDA DOS SANTOS DO Ot Z12.11 ENCOUNTER FOR SCREENING FOR MALIGNANT NE 06/19/2016 ROSALINDA DOS SANTOS DO Ot Z01.818 ENCOUNTER FOR OTHER PREPROCEDURAL EXAMIN 06/19/2016 ROSALINDA DOS SANTOS DO Ot Z12.11 ENCOUNTER FOR SCREENING FOR MALIGNANT NE 06/20/2016 ROSALINDA DOS SANTOS DO Ot Z01.818 ENCOUNTER FOR OTHER PREPROCEDURAL EXAMIN 06/20/2016 ROSALINDA DOS SANTOS DO Ot Z12.11 ENCOUNTER FOR SCREENING FOR MALIGNANT NE 06/20/2016 DOS SANTOS DOROSALINDA Ot K57.30 DVRTCLOS OF LG INT W/O PERFORATION OR AB 06/20/2016 DOS SANTOS DOROSALINDA D Ot Z12.11 ENCOUNTER FOR SCREENING FOR MALIGNANT NE 06/22/2016 DOS SANTOS DOROSALINDA Ot K57.30 DVRTCLOS OF LG INT W/O PERFORATION OR AB 06/22/2016 DOS SANTOS DOROSALINDA Ot Z12.11 ENCOUNTER FOR SCREENING FOR MALIGNANT NE 06/22/2016 DOS SANTOS DO, ROSALINDA Woodard Ot K57.30 DVRTCLOS OF LG INT W/O PERFORATION OR AB 06/22/2016 DOS SANTOS DOROSALINDA Ot Z12.11 ENCOUNTER FOR SCREENING FOR MALIGNANT NE 06/26/2016 DOS SANTOS DO, ROSALINDA Woodard Ot K57.30 DVRTCLOS OF LG INT W/O PERFORATION OR AB 06/26/2016 DOS SANTOS ROSALINDA MACKENZIE Ot Z12.11 ENCOUNTER FOR SCREENING FOR MALIGNANT NE 07/04/2016 DOS SANTOS DO, ROSALINDA Woodard Ot K57.30 DVRTCLOS OF LG INT W/O PERFORATION OR AB 07/04/2016 DOS SANTOS ROSALINDA MACKENZIE Ot Z12.11 ENCOUNTER FOR SCREENING FOR MALIGNANT NE 08/10/2016 ALEXIS DEAN Ot I10 ESSENTIAL (PRIMARY) HYPERTENSION 08/10/2016 ALEXIS DEAN Ot T78.3XXA ANGIONEUROTIC EDEMA, INITIAL ENCOUNTER 08/10/2016 ALEXIS DEAN Ot Z79.82 INTERMEDIATE (CURRENT) USE OF ASPIRIN 08/10/2016 ALEXIS DEAN Ot Z79.899 OTHER DATABASES SOFTWARE CONSULTANT (CURRENT) DRUG THERAPY 08/10/2016 ALEXIS DEAN Ot Z95.5 PRESENCE OF CORONARY ANGIOPLASTY IMPLANT 08/18/2016 ALEXIS DEAN Ot I10 ESSENTIAL (PRIMARY) HYPERTENSION 08/18/2016 ALEXIS DEAN Ot T78.3XXA ANGIONEUROTIC EDEMA, INITIAL ENCOUNTER 08/18/2016 ALEXIS DEAN Ot Z79.82 INTERMEDIATE (CURRENT) USE OF ASPIRIN 08/18/2016 ALEXIS DEAN Ot Z79.899 OTHER DATABASES SOFTWARE CONSULTANT (CURRENT) DRUG THERAPY 08/18/2016 ALEXIS DEAN Ot Z95.5 PRESENCE OF CORONARY ANGIOPLASTY IMPLANT 08/21/2017 ELY WILLETT FACC, ALI FACP CCDS Ot G25.0 ESSENTIAL TREMOR 08/21/2017 ELY WILLETT FACC, ALI FACP CCDS Ot I25.10 ATHSCL HEART DISEASE OF [place] CORONARY 08/21/2017 ELY WILLETT FACC, ALI FACP CCDS Ot R00.2 PALPITATIONS 08/21/2017 ELY WILLETT FACC, ALI FACP CCDS Ot Z79.02 INTERMEDIATE (CURRENT) USE OF ANTITHROMBOTI 08/21/2017 ELY WILLETT FACC, ALI FACP CCDS Ot Z79.899 OTHER DATABASES SOFTWARE CONSULTANT (CURRENT) DRUG THERAPY 08/28/2017 ELY WILLETT FACC, ALI FACP CCDS Ot E78.5 HYPERLIPIDEMIA, UNSPECIFIED 08/28/2017 ELY WILLETT FACC, ALI FACP CCDS Ot I25.10 ATHSCL HEART DISEASE OF [place] CORONARY 08/28/2017 ELY WILLETT FACC, ALI FACP CCDS Ot R07.9 CHEST PAIN, UNSPECIFIED 08/28/2017 ELY WILLETT FACC, ALI FACP CCDS Ot R53.83 OTHER FATIGUE 08/28/2017 ELY WILLETT FACC, ALI FACP CCDS Ot Z79.02 INTERMEDIATE (CURRENT) USE OF ANTITHROMBOTI 08/28/2017 ELY WILLETT FACC, ALI FACP CCDS Ot Z79.82 INTERMEDIATE (CURRENT) USE OF ASPIRIN 08/28/2017 ELY WILLETT FACC, ALI FACP CCDS Ot Z79.899 OTHER INTERMEDIATE (CURRENT) DRUG THERAPY 08/28/2017 ELY WILLETT FACC, ALI FACP CCDS Ot Z87.891 PERSONAL HISTORY OF NICOTINE DEPENDENCE 08/28/2017 ELY WILLETT FACC, ALI FACP CCDS Ot Z95.5 PRESENCE OF CORONARY ANGIOPLASTY IMPLANT 08/30/2017 ELY WILLETT FACC, ALI FACP CCDS Ot E78.5 HYPERLIPIDEMIA, UNSPECIFIED 08/30/2017 ELY FUC, ALI FACP CCDS Ot I25.10 ATHSCL HEART DISEASE OF [place] CORONARY 08/30/2017 ELY WILLETT FACC, ALI FACP CCDS Ot R07.9 CHEST PAIN, UNSPECIFIED 08/30/2017 ELY WILLETT FACC, ALI FACP CCDS Ot R53.83 OTHER FATIGUE 08/30/2017 ELY WILLETT FACC, ALI FACP CCDS Ot Z79.02 DATABASES SOFTWARE CONSULTANT (CURRENT) USE OF ANTITHROMBOTI 08/30/2017 ELY WILLETT FACC, ALI FACP CCDS Ot Z79.82 DATABASES SOFTWARE CONSULTANT (CURRENT) USE OF ASPIRIN 08/30/2017 ELY WILLETT FACC, ALI FACP CCDS Ot Z79.899 OTHER DATABASES SOFTWARE CONSULTANT (CURRENT) DRUG THERAPY 08/30/2017 ELY WILLETT FACC, ALI FACP CCDS Ot Z87.891 PERSONAL HISTORY OF NICOTINE DEPENDENCE 08/30/2017 ELY WILLETT FACC, ALI FACP CCDS Ot Z95.5 PRESENCE OF CORONARY ANGIOPLASTY IMPLANT 09/05/2017 ELY WILLETT FACC, ALI FACP CCDS Ot G25.0 ESSENTIAL TREMOR 09/05/2017 ELY WILLETT FACC, ALI FACP CCDS Ot I25.10 ATHSCL HEART DISEASE OF [place] CORONARY 09/05/2017 ELY WILLETT FACC, ALI FACP CCDS Ot R00.2 PALPITATIONS 09/05/2017 ELY WILLETT FACC, ALI FACP CCDS Ot Z79.02 INTERMEDIATE (CURRENT) USE OF ANTITHROMBOTI 09/05/2017 ELY WILLETT FACC, ALI FACP CCDS Ot Z79.899 OTHER DATABASES SOFTWARE CONSULTANT (CURRENT) DRUG THERAPY 09/05/2017 SONU OTT DOLINE S Ot J44.9 CHRONIC OBSTRUCTIVE PULMONARY DISEASE, U 09/12/2017 JOELLE OTT DOQUELINE S Ot J44.9 CHRONIC OBSTRUCTIVE PULMONARY DISEASE, U 09/17/2017 JOELLE OTT DOQUELINE S Ot J98.4 OTHER DISORDERS OF LUNG 09/26/2017 ANTOINENDER JOELLE MACKENZIEDEDRA S Ot J44.9 CHRONIC OBSTRUCTIVE PULMONARY DISEASE, U 09/26/2017 JOELLE OTT DOQUELINE S Ot R06.09 OTHER FORMS OF DYSPNEA 10/05/2017 JOELLE OTT DOQUELINE S Ot J98.4 OTHER DISORDERS OF LUNG 01/19/2018 JUAN IRWIN DO Ot F41.9 ANXIETY DISORDER, UNSPECIFIED 01/19/2018 JUAN IRWIN DO Ot G47.9 SLEEP DISORDER, UNSPECIFIED 01/19/2018 ALIDA DO, JUAN K Ot N20.0 CALCULUS OF KIDNEY 01/19/2018 ALIDA DO, JUAN K Ot R10.31 RIGHT LOWER QUADRANT PAIN 01/19/2018 ALIDA DO, JUAN K Ot R10.32 LEFT LOWER QUADRANT PAIN 01/19/2018 ALIDA DO, JUAN K Ot R10.9 UNSPECIFIED ABDOMINAL PAIN 01/19/2018 ALIDA DO, JUAN K Ot R31.29 OTHER MICROSCOPIC HEMATURIA 01/21/2018 ALIDA DO, JUAN K Ot F41.9 ANXIETY DISORDER, UNSPECIFIED 01/21/2018 ALIDA DO, JUAN K Ot G47.9 SLEEP DISORDER, UNSPECIFIED 01/21/2018 ALIDA DO, JUAN K Ot N20.0 CALCULUS OF KIDNEY 01/21/2018 ALIDA DO, JUAN K Ot R10.31 RIGHT LOWER QUADRANT PAIN 01/21/2018 ALIDA DO, JUAN K Ot R10.32 LEFT LOWER QUADRANT PAIN 01/21/2018 ALIDA DO, JUAN K Ot R10.9 UNSPECIFIED ABDOMINAL PAIN 01/21/2018 ALIDA DO, JUAN K Ot R31.29 OTHER MICROSCOPIC HEMATURIA 2018 MONA WILLETT, SOFI Stout Ot Z01.818 ENCOUNTER FOR OTHER PREPROCEDURAL EXAMIN 2018 SOFI DUNN MD Ot Z11.2 ENCOUNTER FOR SCREENING FOR OTHER BACTER Procedures There is no data. Results Test Result Range Automated blood complete blood count (hemogram) panel - 08/28/17 07:10 Blood leukocytes automated count (number/volume) 5.8 10*3/uL 4.3-11.0 Blood erythrocytes automated count (number/volume) 4.53 10*6/uL 4.35-5.85 Venous blood hemoglobin measurement (mass/volume) 13.7 g/dL 13.3-17.7 Blood hematocrit (volume fraction) 40 % 40-54 Automated erythrocyte mean corpuscular volume 89 [foz_us] 80-99 Automated erythrocyte mean corpuscular hemoglobin (mass per erythrocyte) 30 pg 25-34 Automated erythrocyte mean corpuscular hemoglobin concentration measurement ( mass/volume) 34 g/dL 32-36 Automated erythrocyte distribution width ratio 12.4 % 10.0-14.5 Automated blood platelet count (count/volume) 214 10*3/uL 130-400 Automated blood platelet mean volume measurement 9.7 [foz_us] 7.4-10.4 PT panel in platelet poor plasma by coagulation assay - 08/28/17 07:10 Prothrombin time (PT) in platelet poor plasma by coagulation assay 12.7 s 12.2-14.7 INR in platelet poor plasma or blood by coagulation assay 0.9 0.8-1.4 Activated partial thromboplastin time (aPTT) in platelet poor plasma bycoagulation assay - 08/28/17 07:10 Activated partial thromboplastin time (aPTT) in platelet poor plasma bycoagulation assay 24 s 24-35 Comprehensive metabolic panel - 08/28/17 07:10 Serum or plasma sodium measurement (moles/volume) 138 mmol/L 135-145 Serum or plasma potassium measurement (moles/volume) 3.6 mmol/L 3.6-5.0 Serum or plasma chloride measurement (moles/volume) 101 mmol/L 98-107 Carbon dioxide 25 mmol/L 21-32 Serum or plasma anion gap determination (moles/volume) 12 mmol/L 5-14 Serum or plasma urea nitrogen measurement (mass/volume) 17 mg/dL 7-18 Serum or plasma creatinine measurement (mass/volume) 0.98 mg/dL 0.60-1.30 Serum or plasma urea nitrogen/creatinine mass ratio 17 NRG Serum or plasma creatinine measurement with calculation of estimated glomerular filtration rate > NRG Serum or plasma glucose measurement (mass/volume) 76 mg/dL 70-105 Serum or plasma calcium measurement (mass/volume) 8.8 mg/dL 8.5-10.1 Serum or plasma total bilirubin measurement (mass/volume) 1.1 mg/dL 0.1-1.0 Serum or plasma alkaline phosphatase measurement (enzymatic activity/volume) 60 U/L 40-136 Serum or plasma aspartate aminotransferase measurement (enzymatic activity/ volume) 24 U/L 5-34 Serum or plasma alanine aminotransferase measurement (enzymatic activity/volume ) 13 U/L 0-55 Serum or plasma protein measurement (mass/volume) 7.1 g/dL 6.4-8.2 Serum or plasma albumin measurement (mass/volume) 4.2 g/dL 3.2-4.5 Lipid 1996 panel - 08/28/17 07:10 Serum or plasma triglyceride measurement (mass/volume) 86 mg/dL <150 Serum or plasma cholesterol measurement (mass/volume) 173 mg/dL < 200 Serum or plasma cholesterol in HDL measurement (mass/volume) 57 mg/ dL 40-60 Cholesterol in LDL [mass/volume] in serum or plasma by direct assay 95 mg/dL 1-129 Serum or plasma cholesterol in VLDL measurement (mass/volume) 17 mg/ dL 5-40 Methicillin resistant Staphylococcus aureus (MRSA) screening culture - 07:10 Methicillin resistant Staphylococcus aureus (MRSA) screening culture NEG NRG Complete urinalysis with reflex to culture - 01/19/18 17:55 Urine color determination YELLOW NRG Urine clarity determination CLEAR NRG Urine pH measurement by test strip 5 5-9 Specific gravity of urine by test strip 1.020 1.016- 1.022 Urine protein assay by test strip, semi-quantitative NEGATIVE NEGATIVE Urine glucose detection by automated test strip NEGATIVE NEGATIVE Erythrocytes detection in urine sediment by light microscopy 2+ NEGATIVE Urine ketones detection by automated test strip NEGATIVE NEGATIVE Urine nitrite detection by test strip NEGATIVE NEGATIVE Urine total bilirubin detection by test strip NEGATIVE NEGATIVE Urine urobilinogen measurement by automated test strip (mass/volume) NORMAL NORMAL Urine leukocyte esterase detection by dipstick NEGATIVE NEGATIVE Automated urine sediment erythrocyte count by microscopy (number/high power field) [HPF] NRG Automated urine sediment leukocyte count by microscopy (number/high power field ) NONE NRG Bacteria detection in urine sediment by light microscopy NEGATIVE NRG Squamous epithelial cells detection in urine sediment by light microscopy 0-2 NRG Crystals detection in urine sediment by light microscopy NONE NRG Casts detection in urine sediment by light microscopy NONE NRG Mucus detection in urine sediment by light microscopy NEGATIVE NRG Complete urinalysis with reflex to culture NO NRG Complete blood count (CBC) with automated white blood cell (WBC) differential - 01/19/18 18:25 Blood leukocytes automated count (number/volume) 6.1 10*3/uL 4.3-11.0 Blood erythrocytes automated count (number/volume) 4.42 10*6/uL 4.35-5.85 Venous blood hemoglobin measurement (mass/volume) 13.3 g/dL 13.3-17.7 Blood hematocrit (volume fraction) 39 % 40-54 Automated erythrocyte mean corpuscular volume 88 [foz_us] 80-99 Automated erythrocyte mean corpuscular hemoglobin (mass per erythrocyte) 30 pg 25-34 Automated erythrocyte mean corpuscular hemoglobin concentration measurement ( mass/volume) 34 g/dL 32-36 Automated erythrocyte distribution width ratio 12.6 % 10.0-14.5 Automated blood platelet count (count/volume) 201 10*3/uL 130-400 Automated blood platelet mean volume measurement 9.7 [foz_us] 7.4-10.4 Automated blood neutrophils/100 leukocytes 52 % 42-75 Automated blood lymphocytes/100 leukocytes 34 % 12-44 Blood monocytes/100 leukocytes 12 % 0-12 Automated blood eosinophils/100 leukocytes 1 % 0-10 Automated blood basophils/100 leukocytes 0 % 0-10 Blood neutrophils automated count (number/volume) 3.2 10*3 1.8-7.8 Blood lymphocytes automated count (number/volume) 2.1 10*3 1.0-4.0 Blood monocytes automated count (number/volume) 0.7 10*3 0.0-1.0 Automated eosinophil count 0.1 10*3/uL 0.0-0.3 Automated blood basophil count (count/volume) 0.0 10*3/uL 0.0-0.1 Comprehensive metabolic panel - 01/19/18 18:25 Serum or plasma sodium measurement (moles/volume) 140 mmol/L 135-145 Serum or plasma potassium measurement (moles/volume) 4.4 mmol/L 3.6-5.0 Serum or plasma chloride measurement (moles/volume) 104 mmol/L 98-107 Carbon dioxide 28 mmol/L 21-32 Serum or plasma anion gap determination (moles/volume) 8 mmol/L 5-14 Serum or plasma urea nitrogen measurement (mass/volume) 9 mg/dL 7-18 Serum or plasma creatinine measurement (mass/volume) 1.09 mg/dL 0.60-1.30 Serum or plasma urea nitrogen/creatinine mass ratio 8 NRG Serum or plasma creatinine measurement with calculation of estimated glomerular filtration rate > NRG Serum or plasma glucose measurement (mass/volume) 99 mg/dL 70-105 Serum or plasma calcium measurement (mass/volume) 9.3 mg/dL 8.5-10.1 Serum or plasma total bilirubin measurement (mass/volume) 0.8 mg/dL 0.1-1.0 Serum or plasma alkaline phosphatase measurement (enzymatic activity/volume) 61 U/L 40-136 Serum or plasma aspartate aminotransferase measurement (enzymatic activity/ volume) 18 U/L 5-34 Serum or plasma alanine aminotransferase measurement (enzymatic activity/volume ) 10 U/L 0-55 Serum or plasma protein measurement (mass/volume) 7.0 g/dL 6.4-8.2 Serum or plasma albumin measurement (mass/volume) 4.2 g/dL 3.2-4.5 Serum or plasma amylase measurement (enzymatic activity/volume) - 01/19/18 18: 25 Serum or plasma amylase measurement (enzymatic activity/volume) 56 U /L 25-125 Lipase - 01/19/18 18:25 Lipase 23 U/L 8-78 Methicillin resistant Staphylococcus aureus (MRSA) screening culture - 11:50 Methicillin resistant Staphylococcus aureus (MRSA) screening culture NEG NRG Encounters ACCT No. Visit Date/Time Discharge Status Pt. Type Provider Facility Loc./Unit Complaint [id number] 01/30/2018 05:40:00 01/30/2018 12:09:00 DIS Outpatient SOFI DUNN MD [facility] PREOP LEFT RENAL STONE [id number] 01/21/2018 11:25:00 01/21/2018 23:59:59 CLS Outpatient SOFI DUNN MD [facility] RAD XRAY KUB [id number] 01/19/2018 17:26:00 01/19/2018 20:25:00 DIS Emergency UJAN IRWIN DO [facility] ER R SIDE BACK/ABD PAIN [id number] 09/11/2017 09:36:00 09/11/2017 23:59:59 CLS Outpatient DEDRA OTT DO [facility] RAD DYSPNEA [id number] 09/05/2017 09:38:00 09/05/2017 23:59:59 CLS Outpatient DEDRA OTT DO [facility] RT COPD [id number] 08/28/2017 06:46:00 08/28/2017 14:00:00 DIS Outpatient ELY WILLETT FACC, POORNIMA MORGAN CCDS [facility] CATH CAD,ANGINA, SOB,FATIGUE [id number] 08/21/2017 14:09:00 08/21/2017 23:59:59 CLS Outpatient DEDRA OTT DO [facility] RAD R07.89, R06.0 [id number] 08/10/2016 18:44:00 08/10/2016 22:38:00 DIS Emergency ALEXIS DEAN [facility] ER ALLERGIC REACTION [id number] 06/20/2016 11:27:00 06/20/2016 18:00:00 DIS Outpatient ROSALINDA DOS SANTOS DO [facility] SCREENING [id number] 06/19/2016 14:00:00 06/19/2016 16:19:00 DIS Outpatient ROSALINDA DOS SANTOS DO [facility] PREOP SCREENING [id number] 05/21/2016 19:09:00 05/21/2016 21:49:00 DIS Emergency ALEXIS DEAN [facility] ER RIGHT HAND DOG BITE [id number] 10/19/2015 09:48:00 10/19/2015 23:59:59 CLS Outpatient POORNIMA GRAVES MD, FACC, FACP CCDS [facility] CATH PALPITATIONS, LIGHT HEADED NESS, SOB [id number] 06/01/2015 11:41:00 06/01/2015 18:45:00 DIS Outpatient POORNIMA GRAVES MD, FACC, FACP CCDS [facility] CORONARY ARTERY DISEASE CP HLD [id number] 02/05/2018 09:00:00 PEN PreadSOFI Aragon MD [facility] LEFT RENAL STONE [id number] 06/02/2015 04:51:41 ACT Document Registration
--- OUTSIDE RECORDS SUMMARY | 2018-02-05 10:28 | XMS REPORT | Clinical Summary ---
Author Author [facility] Organization [facility] Address Unknown Phone Unavailable Care Team Providers Care Court Assistant Name Role Phone Rosalia Talavera RN Unavailable Unavailable Vonnie Mathews MD PCP Source Comments Some departments are not documenting in the electronic medical record. If you do not see the information that you expected, contact Release of Information in the Health Information Management department at [phone] for further assistance in locating additional records.[facility] Allergies No Known Allergies Current Medications Prescription Sig. Disp. Refills Start End Date Status Date zolpidem (AMBIEN) 5 mg Take 5 mg by mouth at Active tablet bedtime as needed. clopiDOGrel (PLAVIX) 75 Take 75 mg by mouth Active mg tablet daily. DULoxetine DR (CYMBALTA) Take 60 mg by mouth Active 60 mg capsule daily. tapentadol(+) (NUCYNTA) Take 50 mg by mouth every Active 50 mg tablet 4 hours as needed aspirin 81 mg chewable Take 81 mg by mouth Active tablet daily. diphenhydrAMINE Take 50 mg by mouth every Active (BENADRYL) 25 mg capsule 6 hours as needed. carvedilol (COREG) 6.25 Take 1 Tab by mouth twice 60 Tab 3 02/22/20 Active mg tablet daily. 13 atorvastatin (LIPITOR) 40 Take 1 Tab by mouth at 30 Tab 3 02/22/20 Active mg tablet bedtime daily. 13 nitroglycerin (NITROSTAT) Place 1 Tab under tongue 25 Tab 3 02/22/20 Active 0.4 mg tablet every 5 minutes as needed 13 for Chest Pain. Active Problems Problem Noted Date CAD (coronary artery disease), [place] coronary artery 02/19/2013 Overview: S/p PCI in 2010 and 2012 to LAD at [facility] in [place]. FH: premature coronary heart disease 02/19/2013 HLD (hyperlipidemia) 02/19/2013 Back pain, chronic 02/19/2013 Immunizations Name Dates Previously Given Next Due Pneumococcal Vaccine 02/21/2013 (23-[place]ana Adult) Family History Medical History Relation Name Comments Cancer Father of leukemia age 54 Bronchitis Mother of ARDs, chronic bronchitis Coronary Artery Disease Sister Relation Name Status Comments Father Mother Sister Social History Tobacco Use Types Packs/Day Years Used Date Former Smoker Cigarettes Comments: smoked in 20s, quit in 1970s Alcohol Use Drinks/Week oz/Week Comments Yes 1 Standard 0.5 occas recreational drinks or equivalent Sex Assigned at Date Recorded Not on file Last Filed Vital Signs Vital Sign Reading Time Taken Blood Pressure 98/58 02/21/2013 6:47 AM CDT Pulse 79 02/21/2013 6:47 AM CDT Temperature 37.2 C (98.9 F) 02/21/2013 6:47 AM CDT Respiratory Rate - - Oxygen Saturation 98% 02/21/2013 6:47 AM CDT Inhaled Oxygen - - Concentration Weight 62.2 kg (137 lb 3.2 oz) 02/21/2013 3:17 AM CDT Height 180.3 cm (5' 11") 02/19/2013 4:56 PM CDT Body Mass Index 19.14 02/21/2013 3:17 AM CDT Plan of Treatment Health Maintenance Due Date Last Done Comments HEPATITIS C SCREENING 1950 PHYSICAL (COMPREHENSIVE) 01/30/1959 EXAM PERTUSSIS VACCINE 01/30/1963 TETANUS VACCINE 01/30/1969 COLORECTAL CANCER 01/30/2002 SCREENING SHINGLES VACCINE 2012 ABDOMINAL AORTIC ANEURYSM 01/30/2017 SCREENING PREVNAR/PNEUMOVAX (#1) 01/30/2017 02/21/2013 INFLUENZA VACCINE 06/17/2018 Results Not on filefrom Last 3 Months
[2018-02-05] MEDS ORDERED: morphine INJ 10 MG/ML 1ML (SYR OR VIAL) IVP PRN (10:30)
[2018-02-05] MEDS ORDERED: fentaNYL INJECTION 100 MCG/2 ML AMP IVP PRN (10:30)
[2018-02-05 11:05] VITALS: BP 129/80
[2018-02-05] MEDS ORDERED: HYDROcodone/APAP 7.5 MG/325 MG (LORTAB, LORCET PLUS) TABLET PO ONE (11:16)
[2018-02-05] MEDS ORDERED: TAMS0.4C98 PO (11:25)
[2018-02-05] MEDS ORDERED: NITR-65 PO (11:25)
[2018-02-05] MEDS ORDERED: HYDR-3875 PO (11:25)
[2018-02-05] MEDS ORDERED: HYDROcodone/APAP 7.5 MG/325 MG (LORTAB, LORCET PLUS) TABLET PO PRN (11:30)
[2018-02-05 11:35] VITALS: BP 120/72
[2018-02-05 11:55] VITALS: BP 120/72
--- NOTE | 2018-02-05 12:56 | Anesthesia-General Post-Op ---
General Patient Condition Mental Status/LOC: Same as Preop Cardiovascular: Satisfactory Nausea/Vomiting: Absent Respiratory: Satisfactory Pain: Controlled Complications: Absent Post Op Complications Complications None Follow Up Care/Instructions Patient Instructions None needed. Anesthesia/Patient Condition Patient Condition Patient is doing well, no complaints, stable vital signs, no apparent adverse anesthesia problems. No complications reported per nursing. D/C home per [facility] [place] Criteria: Yes TRACY ISRAEL CRNA February 05, 2018 12:56
--- NOTE | 2018-02-05 15:47 | OPERATIVE REPORT ---
DATE OF SERVICE: 02/05/2018 PREOPERATIVE DIAGNOSIS: Left ureteropelvic junction stone. POSTOPERATIVE DIAGNOSIS: Left ureteropelvic junction stone. OPERATION PERFORMED: Left ESWL. SURGEON: Danyel Dunn MD ANESTHESIA: General. COMPLICATIONS: None. DESCRIPTION OF PROCEDURE: Under satisfactory general anesthesia, the patient in supine position on the ESWL table, the left UPJ stone was localized. Shocks were delivered at a kV of 5. A total of 3000 shocks seemed to have fragmented the stone nicely seen fluoroscopically. The patient was given 40 mg of Lasix and 30 mg of Toradol IV at the end of procedure. He tolerated the procedure and anesthesia well and was sent to recovery room in stable condition. Job ID: [id number] DocumentID: [id number] Dictated Date: 02/05/2018 10:00:52 Doors Prefitter Date: 02/05/2018 15:47:11 Dictated By: DANYEL DUNN MD
== END 2018-02-05 12:15 | disposition home or self-care (01) ==
LOC: SDC 07:39
PROVIDERS: ATTEND Urology
DX: N20.1 Calculus of ureter (principal); I25.10 Atherosclerotic heart disease of native coronary artery without angina pectoris; I10 Essential (primary) hypertension; Z95.5 Presence of coronary angioplasty implant and graft; Z79.82 Long term (current) use of aspirin; Z79.899 Other long term (current) drug therapy
CPT/HCPCS: 74018; 93005

== ENCOUNTER → 2018-02-25 | Outpatient (CLI) | payer MEDICARE, OTHER ==
[~2018-02-25] MED LIST changes: +HYDR-3875 PO; +NITR-65 PO
--- NOTE | 2018-02-25 15:57 | Diagnostic Imaging Report ---
INDICATION: Nephrolithiasis. FINDINGS: There is a moderate amount of stool in the colon. There is a 7 mm calcification projecting over the left renal pelvis. The patient has had previous fusion at L4-5. IMPRESSION: 7 mm calculus in the left kidney. Other calculi could be obscured by overlying bowel gas and fecal material. Dictated by: Dictated on workstation # [id number]
== END ==
LOC: RAD 14:04
PROVIDERS: ATTEND Urology
DX: N20.0 Calculus of kidney (principal)
CPT/HCPCS: 74018

== ENCOUNTER → 2018-02-25 | Outpatient (CLI) | payer MEDICARE | LOC: PREOP 09:29 | PROVIDERS: ATTEND Urology | DX: Z01.818 Encounter for other preprocedural examination (principal) ==

== ENCOUNTER → 2019-01-31 | Outpatient (CLI) | payer MEDICARE ==
[~2019-01-31] MED LIST changes: +CLON0.5T13 PO; -CLON0.5T3 PO; +CLON1TAB13 PO; -CLON1TAB3 PO
--- NOTE | 2019-01-31 08:36 | Diagnostic Imaging Report ---
INDICATION: Left flank pain. COMPARISON: None. FINDINGS: Two supine radiographic views of the abdomen were obtained and show no unexpected extraosseous calcifications. Note is made of left-sided nephrolithiasis seen on prior exam. Previously described 7 mm calculus does appear slightly more medial on today's exam. No unexpected radiopaque foreign bodies are identified. Small bowel loops are nondistended. Bony structures show no gross acute abnormalities. Included portions of lung bases are clear. IMPRESSION: 1. Previously described 7 mm calculus does appear slightly more medial on today's exam suggesting potential migration into the left renal pelvis or UPJ. 2. Nonobstructive small bowel gas pattern. Dictated by: Dictated on workstation # [id number]
--- NOTE | 2019-01-31 09:54 | Diagnostic Imaging Report ---
PROCEDURE: CT abdomen and pelvis without contrast. TECHNIQUE: Multiple contiguous axial images were obtained through the abdomen and pelvis without the use of intravenous contrast. Auto Exposure Controls were utilized during the CT exam to meet ALARA standards for radiation dose reduction. INDICATION: Left flank pain and hematuria. COMPARISON: Comparison is made with prior CT from 01/19/2018. FINDINGS: The lung bases are clear. The liver and gallbladder are unremarkable. No biliary duct dilatation is seen. The pancreas and spleen are unremarkable. No adrenal mass is detected. There are tiny nonobstructing calculi within the right kidney. Left kidney contains a tiny nonobstructing calculus in the lower pole. In addition there is a 7 mm calculus medial to the left kidney, likely at the UPJ. No hydronephrosis is seen. No other ureteral or bladder calculi are detected. Aorta is nonaneurysmal. The small and large bowel loops are normal in caliber. The appendix is unremarkable. There is no ascites. There is diverticulosis of the sigmoid but no evidence of acute diverticulitis. There is some streak artifact hardware in the lower lumbar spine. IMPRESSION: 1. Bilateral nonobstructing nephrolithiasis. There is a 7 mm calculus in the region of the left renal pelvis/UPJ. No hydronephrosis is seen. 2. Uncomplicated diverticulosis. Dictated by: Dictated on workstation # [id number]
== END ==
LOC: RAD 07:56
PROVIDERS: ATTEND Urology
DX: N20.0 Calculus of kidney (principal); K57.32 Diverticulitis of large intestine without perforation or abscess without bleeding
CPT/HCPCS: 74018; 74176

== ENCOUNTER 2019-02-04 07:06 | Day surgery (SDC) | payer MEDICARE ==
[~2019-02-04] VITALS: Ht 180.3 cm; Wt 62.6 kg
--- OUTSIDE RECORDS SUMMARY | 2019-02-04 07:09 | XMS REPORT | Clinical Summary ---
Author Author [facility] Organization [facility] Address Unknown Phone Unavailable Care Team Providers Care Marketing Financial Analyst Name Role Phone Vonnie Mathews MD PCP Allergies No Known Allergies Current Medications Prescription Sig. Disp. Refills Start End Date Status Date oxyCODONE-acetaminophen take 1 tablet by oral 10 0 12/13/19 Active (PERCOCET) 5-325 mg per route every 6 hours as 14 tablet needed Active Problems Not on file Social History Tobacco Use Types Packs/Day Years Used Date Never Assessed Sex Assigned at Date Recorded Not on file Last Filed Vital Signs Vital Sign Reading Time Taken Blood Pressure - - Pulse - - Temperature - - Respiratory Rate - - Oxygen Saturation - - Inhaled Oxygen - - Concentration Weight 61.8 kg (136 lb 3.9 oz) 12/12/2013 5:00 AM CDT Height 180 cm (5' 10.87") 12/12/2013 12:00 AM CDT Body Mass Index 19.07 12/12/2013 5:00 AM CDT Plan of Treatment Not on file Results Not on filefrom Last 3 Months
--- OUTSIDE RECORDS SUMMARY | 2019-02-04 07:10 | XMS REPORT | Clinical Summary ---
Author Author [facility] Organization [facility] Address Unknown Phone Unavailable Care Team Providers Care Check Weigher Name Role Phone Rosalia Talavera RN Unavailable Unavailable Vonnie Mathews MD PCP Source Comments Some departments are not documenting in the electronic medical record. If you d o not see the information that you expected, contact Release of Information in [facility] [employer] Information Management department at [phone] for further assistan ce in locating additional records.[facility] Allergies No Known Allergies Medications End Date Status Medication Sig Dispensed Refills Start Date Active zolpidem (AMBIEN) 5 mg Take 5 mg by 0 tablet mouth at bedtime as needed. Active clopiDOGrel (PLAVIX) 75 Take 75 mg by 0 mg tablet mouth daily. Active DULoxetine DR (CYMBALTA) Take 60 mg by 0 60 mg capsule mouth daily. Active tapentadol(+) (NUCYNTA) Take 50 mg by 0 50 mg tablet mouth every 4 hours as needed Active aspirin 81 mg chewable Take 81 mg by 0 tablet mouth daily. Active diphenhydrAMINE Take 50 mg by 0 (BENADRYL) 25 mg capsule mouth every 6 hours as needed. Active carvedilol (COREG) 6.25 Take 1 Tab by 60 Tab 3 02/21/201 mg tablet mouth twice 3 daily. Active atorvastatin (LIPITOR) 40 Take 1 Tab by 30 Tab 3 02/21/201 mg tablet mouth at 3 bedtime daily. Active nitroglycerin (NITROSTAT) Place 1 Tab 25 Tab 3 0.4 mg tablet under tongue 3 every 5 minutes as needed for Chest Pain. Active Problems Problem Noted Date CAD (coronary artery disease), [place] coronary artery 02/19/2013 Overview: S/p PCI in 2010 and 2012 to LAD at [facility] in [place]. FH: premature coronary heart disease 02/19/2013 HLD (hyperlipidemia) 02/19/2013 Back pain, chronic 02/19/2013 Immunizations Name Dates Previously Given Next Due Pneumococcal Vaccine 02/21/2013 (23-[place]ana Adult) Family History Medical History Relation Name Comments Cancer Father of leukemia age 54 Bronchitis Mother of ARDs, chronic bronchitis Coronary Artery Disease Sister Relation Name Status Comments Father Mother Sister Social History Date Tobacco Use Types Packs/Day Years Used Former Smoker Cigarettes Comments: smoked in 20s, quit in 1970s Alcohol Use Drinks/Week oz/Week Comments Yes 1 Standard 0.5 occas recreational drinks or equivalent Sex Assigned at Date Recorded Not on file Industry Job Start Date Occupation Not on file Not on file Not on file Travel End Travel History Travel Start No recent travel history available. Last Filed Vital Signs Time Taken Vital Sign Reading 02/21/2013 6:47 AM CDT Blood Pressure 98/58 02/21/2013 6:47 AM CDT Pulse 79 02/21/2013 6:47 AM CDT Temperature 37.2 C (98.9 F) - Respiratory Rate - 02/21/2013 6:47 AM CDT Oxygen Saturation 98% - Inhaled Oxygen - Concentration 02/21/2013 3:17 AM CDT Weight 62.2 kg (137 lb 3.2 oz) 02/19/2013 4:56 PM CDT Height 180.3 cm (5' 11") 02/19/2013 4:56 PM CDT Body Mass Index 19.14 Plan of Treatment Health Maintenance Due Date Last Done Comments HEPATITIS C SCREENING 1950 PHYSICAL (COMPREHENSIVE) 01/30/1959 EXAM DTAP/TDAP VACCINES (1 - 01/30/1970 Tdap) COLORECTAL CANCER 01/30/2002 SCREENING SHINGLES RECOMBINANT 01/30/2002 VACCINE (1 of 2) ABDOMINAL AORTIC ANEURYSM 01/30/2017 SCREENING PNEUMONIA (PCV13/PPSV23) 01/30/2017 02/21/2013 VACCINES (1 of 2 - PCV13) INFLUENZA VACCINE 06/17/2019 Results Not on filefrom Last 3 Months Advance Directives For more information, please contact: [facility] [address] [facility] [place] [address] Date Inactivated Comments Code Status Date Activated 02/21/2013 1:03 PM Full Code 02/19/2013 5:20 PM Provider has discussed Code Status Yes w/Patient or Family? 02/19/2013 5:20 PM Full Code 02/19/2013 4:41 PM Provider has discussed Code Status No, more discussion w/Patient or Family? needed
--- OUTSIDE RECORDS SUMMARY | 2019-02-04 07:11 | XMS REPORT | Continuity of Care Document ---
Author Organization Unknown Address Unknown Allergies Active Description Code Type Severity Reaction Onset Reported/Identified Relationship to Patient Clinical Status Yes No Known Drug Allergies [id number] Drug Allergy Unknown N/A 01/30/2018 Medications There is no data. Problems Date Dx Coded Attending Type Code Diagnosis Diagnosed By 06/01/2015 ELY WILLETT FACC, POORNIMA FACP CCDS Ot 333.1 TREMOR NEC 06/01/2015 ELY WILLETT FACC, POORNIMA FACP CCDS Ot 414.01 CORONARY ATHEROSCLEROSIS OF [place] CORON 06/01/2015 POORNIMA GRAVES MD, FACC FACP CCDS Ot 786.59 CHEST PAIN NEC 06/01/2015 ELY WILLETT FACC, POORNIMA FACP CCDS Ot V15.82 HISTORY OF TOBACCO USE 06/01/2015 ELY WILLETT FACC, ALI FACP CCDS Ot V45.82 PERCUTANEOUS TRANSLUM CORON ANGIOPLASTY 06/01/2015 ELY WILLETT FACC, ALI FACP CCDS Ot V58.67 LONG-TERM (CURRENT) USE OF INSULIN 11/08/2015 ELY WILLETT FACC, POORNIMA FACP CCDS Ot G25.0 11/08/2015 ELY WILLETT FACC, ALI FACP CCDS Ot I25.10 11/08/2015 POORNIMA GRAVES MD, FACC FACP CCDS Ot R00.2 11/08/2015 ELY WILLETT FACC, ALI FACP CCDS Ot Z79.02 11/08/2015 ELY WILLETT FACC, ALI FACP CCDS Ot Z79.899 11/23/2015 ELY WILLETT FACC, ALI FACP CCDS Ot G25.0 11/23/2015 ELY WILLETT FACC, ALI FACP CCDS Ot I25.10 11/23/2015 ELY WILLETT FACC, ALI FACP CCDS Ot R00.2 11/23/2015 ELY WILLETT FACC, ALI FACP CCDS Ot Z79.02 11/23/2015 ELY WILLETT FACC, ALI FACP CCDS Ot Z79.899 01/03/2016 ELY WILLETT FAC, ALI FACP CCDS Ot G25.0 ESSENTIAL TREMOR 01/03/2016 ELY MD FACC, ALI FACP CCDS Ot I25.10 ATHSCL HEART DISEASE OF [place] CORONARY 01/03/2016 ELY MD FACC, ALI FACP CCDS Ot R00.2 PALPITATIONS 01/03/2016 ELY MD FACC, ALI FACP CCDS Ot Z79.02 FCI (CURRENT) USE OF ANTITHROMBOTI 01/03/2016 ELY WILLETT FACC, ALI FACP CCDS Ot Z79.899 OTHER [facility]CI (CURRENT) DRUG THERAPY 02/03/2016 ELY WILLETT FACC, ALI FACP CCDS Ot G25.0 ESSENTIAL TREMOR 02/03/2016 ELY MD FACC, ALI FACP CCDS Ot I25.10 ATHSCL HEART DISEASE OF [place] CORONARY 02/03/2016 ELY WILLETT FAC, ALI FACP CCDS Ot R00.2 PALPITATIONS 02/03/[address] [facility], ALI FACP CCDS Ot Z79.02 [facility] (CURRENT) USE OF ANTITHROMBOTI 02/03/[address] [facility], ALI FACP CCDS Ot Z79.899 OTHER ETL DEVELOPER (CURRENT) DRUG THERAPY 03/16/2016 ELY WILLETT FAC, ALI FACP CCDS Ot G25.0 ESSENTIAL TREMOR 03/16/2016 ELY WILLETT FAC, ALI FACP CCDS Ot I25.10 ATHSCL HEART DISEASE OF [place] CORONARY 03/16/2016 ELY WILLETT FAC, ALI FACP CCDS Ot R00.2 PALPITATIONS 03/16/[address] [facility], ALI FACP CCDS Ot Z79.02 ETL DEVELOPER (CURRENT) USE OF ANTITHROMBOTI 03/16/2016 ELY WILLETT FAC, ALI FACP CCDS Ot Z79.899 OTHER ETL DEVELOPER (CURRENT) DRUG THERAPY 05/21/2016 ALEXIS DEAN Ot I10 ESSENTIAL (PRIMARY) HYPERTENSION 05/21/2016 ALEXIS DEAN Ot S61.452A OPEN BITE OF LEFT HAND, INITIAL ENCOUNTE 05/21/2016 ALEXIS DEAN Ot W54.0XXA BITTEN BY DOG, INITIAL ENCOUNTER 05/21/2016 ALEXIS DEAN Ot Y99.8 OTHER EXTERNAL CAUSE STATUS 05/21/2016 ALEXIS DEAN Ot Z20.3 CONTACT WITH AND (SUSPECTED) EXPOSURE TO 05/21/2016 ALEXIS DEAN Ot Z23 ENCOUNTER FOR IMMUNIZATION 05/21/2016 ALEXIS DEAN Ot Z79.82 ETL DEVELOPER (CURRENT) USE OF ASPIRIN 05/21/2016 ALEXIS DEAN Ot Z79.899 OTHER ETL DEVELOPER (CURRENT) DRUG THERAPY 05/21/2016 ALEXIS DEAN Ot [...] FOR IMMUNIZATION 06/06/2016 ALEXIS DEAN Ot Z79.82 [facility]CI (CURRENT) USE OF ASPIRIN 06/06/2016 ALEXIS DEAN Ot Z79.899 OTHER ETL DEVELOPER (CURRENT) DRUG THERAPY 06/06/2016 ALEXIS DEAN Ot [...] Z01.818 ENCOUNTER FOR OTHER PREPROCEDURAL EXAMIN 06/20/2016 DOS SANTOSROSALINDA QUINTANA DO Ot Z12.11 ENCOUNTER FOR SCREENING FOR MALIGNANT NE 06/20/2016 DOS SANTOS DO, ROSALINDA D Ot K57.30 DVRTCLOS OF LG INT W/O PERFORATION OR AB 06/20/2016 DOS SANTOS DO, ROSALINDA D Ot Z12.11 ENCOUNTER FOR SCREENING FOR MALIGNANT NE 06/22/2016 DOS SANTOS DOROSALINDA Ot K57.30 DVRTCLOS OF LG INT W/O PERFORATION OR AB 06/22/2016 DOS SANTOS DO, ROSALINDA D Ot Z12.11 ENCOUNTER FOR SCREENING FOR MALIGNANT NE 06/22/2016 DOS SANTOS DO, ROSALINDA D Ot K57.30 DVRTCLOS OF LG INT W/O PERFORATION OR AB 06/22/2016 DOS SANTOS DOROSALINDA D Ot Z12.11 ENCOUNTER FOR SCREENING FOR MALIGNANT NE 06/26/2016 DOS SANTOS DO, ROSALINDA D Ot K57.30 DVRTCLOS OF LG INT W/O PERFORATION OR AB 06/26/2016 ROSALINDA DOS SANTOS DO D Ot Z12.11 ENCOUNTER FOR SCREENING FOR MALIGNANT NE 07/04/2016 DOS SANTOS DO, ROSALINDA Woodard Ot K57.30 DVRTCLOS OF LG INT W/O PERFORATION OR AB 07/04/2016 DOS SANTOS ROSALINDA MACKENZIE Ot Z12.11 ENCOUNTER FOR SCREENING FOR MALIGNANT NE 08/10/2016 ALEXIS DEAN Ot I10 ESSENTIAL (PRIMARY) HYPERTENSION 08/10/2016 ALEXIS DEAN Ot T78.3XXA ANGIONEUROTIC EDEMA, INITIAL ENCOUNTER 08/10/2016 ALEXIS DEAN Ot Z79.82 [facility]CI (CURRENT) USE OF ASPIRIN 08/10/2016 ALEXIS DEAN Ot Z79.899 OTHER ETL DEVELOPER (CURRENT) DRUG THERAPY 08/10/2016 ALEXIS DEAN Ot Z95.5 PRESENCE OF CORONARY ANGIOPLASTY IMPLANT 08/18/2016 ALEXIS DEAN Ot I10 ESSENTIAL (PRIMARY) HYPERTENSION 08/18/2016 ALEXIS DEAN Ot T78.3XXA ANGIONEUROTIC EDEMA, INITIAL ENCOUNTER 08/18/2016 ALEXIS DEAN Ot Z79.82 [facility]CI (CURRENT) USE OF ASPIRIN 08/18/2016 PIPPA PA, ALEXIS L Ot Z79.899 OTHER [facility]CI (CURRENT) DRUG THERAPY 08/18/2016 ALEXIS DEAN Ot Z95.5 PRESENCE OF CORONARY ANGIOPLASTY IMPLANT 08/21/2017 ELY WILLETT FACC, ALI FACP CCDS Ot G25.0 ESSENTIAL TREMOR 08/21/2017 ELY WILLETT FACC, ALI FACP CCDS Ot I25.10 ATHSCL HEART DISEASE OF [place] CORONARY 08/21/2017 ELY FUC, ALI FACP CCDS Ot R00.2 PALPITATIONS 08/21/2017 ELY WILLETT FACC, ALI FACP CCDS Ot Z79.02 ETL DEVELOPER (CURRENT) USE OF ANTITHROMBOTI 08/21/2017 ELY FUC, ALI FACP CCDS Ot Z79.899 OTHER [facility]CI (CURRENT) DRUG THERAPY 08/28/2017 ELY WILLETT FACC, ALI FACP CCDS Ot E78.5 HYPERLIPIDEMIA, UNSPECIFIED 08/28/2017 ELY FUC, ALI FACP CCDS Ot I25.10 ATHSCL HEART DISEASE OF [place] CORONARY 08/28/2017 ELY WILLETT FACC, ALI FACP CCDS Ot R07.9 CHEST PAIN, UNSPECIFIED 08/28/2017 ELY WILLETT FACC, ALI FACP CCDS Ot R53.83 OTHER FATIGUE 08/28/2017 ELY WILLETT FACC, ALI FACP CCDS Ot Z79.02 ETL DEVELOPER (CURRENT) USE OF ANTITHROMBOTI 08/28/2017 ELY WILLETT FACC, ALI FACP CCDS Ot Z79.82 ETL DEVELOPER (CURRENT) USE OF ASPIRIN 08/28/2017 ELY WILLETT FACC, ALI FACP CCDS Ot Z79.899 OTHER [facility]CI (CURRENT) DRUG THERAPY 08/28/2017 ELY WILLETT FACC, ALI FACP CCDS Ot Z87.891 PERSONAL HISTORY OF NICOTINE DEPENDENCE 08/28/2017 ELY WILLETT FACC, ALI FACP CCDS Ot Z95.5 PRESENCE OF CORONARY ANGIOPLASTY IMPLANT 08/30/2017 ELY WILLETT FACC, ALI FACP CCDS Ot E78.5 HYPERLIPIDEMIA, UNSPECIFIED 08/30/2017 EYL FUC, ALI FACP CCDS Ot I25.10 ATHSCL HEART DISEASE OF [place] CORONARY 08/30/2017 ELY FUC, ALI FACP CCDS Ot R07.9 CHEST PAIN, UNSPECIFIED 08/30/2017 ELY WILLETT FACC, ALI FACP CCDS Ot R53.83 OTHER FATIGUE 08/30/2017 ELY WILLETT FACC, ALI FACP CCDS Ot Z79.02 FCI (CURRENT) USE OF ANTITHROMBOTI 08/30/2017 ELY WILLETT FACC, ALI FACP CCDS Ot Z79.82 [facility]CI (CURRENT) USE OF ASPIRIN 08/30/2017 ELY WILLETT FACC, ALI FACP CCDS Ot Z79.899 OTHER FCI (CURRENT) DRUG THERAPY 08/30/2017 ELY WILLETT FACC, ALI FACP CCDS Ot Z87.891 PERSONAL HISTORY OF NICOTINE DEPENDENCE 08/30/2017 ELY WILLETT FACC, ALI FACP CCDS Ot Z95.5 PRESENCE OF CORONARY ANGIOPLASTY IMPLANT 09/05/2017 ELY WILLETT FACC, ALI FACP CCDS Ot G25.0 ESSENTIAL TREMOR 09/05/2017 ELY WILLETT FACC, ALI FACP CCDS Ot I25.10 ATHSCL HEART DISEASE OF [place] CORONARY 09/05/2017 ELY WILLETT FACC, ALI FACP CCDS Ot R00.2 PALPITATIONS 09/05/2017 ELY WILLETT FACC, ALI FACP CCDS Ot Z79.02 ETL DEVELOPER (CURRENT) USE OF ANTITHROMBOTI 09/05/2017 ELY WILLETT FACC, ALI FACP CCDS Ot Z79.899 OTHER ETL DEVELOPER (CURRENT) DRUG THERAPY 09/05/2017 SONU MATHEWS DOLINE S Ot J44.9 CHRONIC OBSTRUCTIVE PULMONARY DISEASE, U 09/12/2017 SONU MATHEWS DOLINE S Ot J44.9 CHRONIC OBSTRUCTIVE PULMONARY DISEASE, U 09/17/2017 SONU MATHEWS DOLINE S Ot J98.4 OTHER DISORDERS OF LUNG 09/26/2017 JOELLE MATHEWS DOQUELINE S Ot J44.9 CHRONIC OBSTRUCTIVE PULMONARY DISEASE, U 09/26/2017 SONU MATHEWS DOLINE S Ot R06.09 OTHER FORMS OF DYSPNEA 10/05/2017 JOELLE MATHEWS DOQUELINE S Ot J98.4 OTHER DISORDERS OF [...] JUAN K Ot R31.29 OTHER MICROSCOPIC HEMATURIA 01/30/2018 SOFI DUNN MD Ot Z01.818 ENCOUNTER FOR OTHER PREPROCEDURAL EXAMIN 01/30/2018 SOFI DUNN MD Ot Z11.2 ENCOUNTER FOR SCREENING FOR OTHER BACTER 2018 SOFI DUNN MD Ot Z01.818 ENCOUNTER FOR OTHER PREPROCEDURAL EXAMIN 2018 SOFI DUNN MD Ot Z11.2 ENCOUNTER FOR SCREENING FOR OTHER BACTER 02/05/2018 SOFI DUNN MD Ot Z01.818 ENCOUNTER FOR OTHER PREPROCEDURAL EXAMIN 02/05/2018 SOFI DUNN MD Ot Z11.2 ENCOUNTER FOR SCREENING FOR OTHER BACTER 02/05/2018 SOFI DUNN MD Ot I10 ESSENTIAL (PRIMARY) HYPERTENSION 02/05/2018 SOFI DUNN MD Ot I25.10 ATHSCL HEART DISEASE OF [place] CORONARY 02/05/2018 SOFI DUNN MD Ot N20.1 CALCULUS OF URETER 02/05/2018 SOFI DUNN MD Ot Z79.82 [facility]CI (CURRENT) USE OF ASPIRIN 02/05/2018 SOFI DUNN MD, Ot Z79.899 OTHER [facility]CI (CURRENT) DRUG THERAPY 02/05/2018 SOFI DUNN MD Ot Z95.5 PRESENCE OF CORONARY ANGIOPLASTY IMPLANT 02/13/2018 SOFI DUNN MD Ot N20.0 CALCULUS OF KIDNEY 02/23/2018 SOFI DUNN MD Ot I10 ESSENTIAL (PRIMARY) HYPERTENSION 02/23/2018 SOFI DUNN MD Ot I25.10 ATHSCL HEART DISEASE OF [place] CORONARY 02/23/2018 SOFI DUNN MD Ot N20.1 CALCULUS OF URETER 02/23/2018 SOFI DUNN MD, Ot Z79.82 ETL DEVELOPER (CURRENT) USE OF ASPIRIN 02/23/2018 SOFI DUNN MD, Ot Z79.899 OTHER [facility]CI (CURRENT) DRUG THERAPY 02/23/2018 SOFI DUNN MD, Ot Z95.5 PRESENCE OF CORONARY ANGIOPLASTY IMPLANT 02/26/2018 SOFI DUNN MD Ot N20.0 CALCULUS OF KIDNEY 02/26/2018 SOFI DUNN MD Ot Z01.818 ENCOUNTER FOR OTHER PREPROCEDURAL EXAMIN 03/04/2018 ELY WILLETT FACC, ALI FACP CCDS Ot G25.0 ESSENTIAL TREMOR 03/04/2018 ELY WILLETT FACC, ALI FACP CCDS Ot I25.10 ATHSCL HEART DISEASE OF [place] CORONARY 03/04/2018 ELY WILLETT FACC, ALI FACP CCDS Ot R00.2 PALPITATIONS 03/04/2018 ELY WILLETT FACC, ALI FACP CCDS Ot Z79.02 FCI (CURRENT) USE OF ANTITHROMBOTI 03/04/2018 ELY WILLETT FACC, ALI FACP CCDS Ot Z79.899 OTHER [facility]CI (CURRENT) DRUG THERAPY 03/04/2018 VONNIE MATHEWS DO S Ot J44.9 CHRONIC OBSTRUCTIVE PULMONARY DISEASE, U 03/04/2018 VONNIE MATHEWS DO Ot J44.9 CHRONIC OBSTRUCTIVE PULMONARY DISEASE, U 03/04/2018 VONNIE MATHEWS DO S Ot R06.09 OTHER FORMS OF DYSPNEA 03/04/2018 VONNIE MATHEWS DO S Ot J98.4 OTHER DISORDERS OF LUNG 03/04/2018 MONA MD, SOFI A Ot N20.0 CALCULUS OF KIDNEY 03/04/2018 MONA WILLETT, SOFI Stout Ot Z01.818 ENCOUNTER FOR OTHER PREPROCEDURAL EXAMIN 03/04/2018 MONA WILLETT, SOFI Stout Ot N20.0 CALCULUS OF KIDNEY 03/04/2018 MONA WILLETT, SOFI Stout Ot N20.0 CALCULUS OF KIDNEY 03/04/2018 VONNIE MATHEWS DO S Ot J98.4 OTHER DISORDERS OF LUNG 03/04/2018 ANTOINENDER JOELLE MACKENZIEVONNIE S Ot J44.9 CHRONIC OBSTRUCTIVE PULMONARY DISEASE, U 03/04/2018 ANTOINENDER JOELLE MACKENZIEVONNIE S Ot R06.09 OTHER FORMS OF DYSPNEA 03/21/2018 MONA WILLETT, SOFI Stout Ot N20.0 CALCULUS OF KIDNEY 04/02/2018 MONA WILLETT, SOFI Stout Ot N20.0 CALCULUS OF KIDNEY 04/02/2018 MONA WILLETT, SOFI Stout Ot N20.0 CALCULUS OF KIDNEY 04/02/2018 VONNIE MATHEWS DO S Ot J98.4 OTHER DISORDERS OF LUNG 04/02/2018 ANTOINENDER JOELLE MACKENZIEVONNIE S Ot J44.9 CHRONIC OBSTRUCTIVE PULMONARY DISEASE, U 04/02/2018 COLBYER JOELLE MACKENZIEVONNIE S Ot R06.09 OTHER FORMS OF DYSPNEA 05/15/2018 EYL WILLETT FACC, ALI FACP CCDS Ot G25.0 ESSENTIAL TREMOR 05/15/2018 ELY WILLETT FACC, ALI FACP CCDS Ot I25.10 ATHSCL HEART DISEASE OF [place] CORONARY 05/15/2018 ELY FUC, ALI FACP CCDS Ot R00.2 PALPITATIONS 05/15/2018 ELY WILLETT FACC, ALI FACP CCDS Ot Z79.02 ETL DEVELOPER (CURRENT) USE OF ANTITHROMBOTI 05/15/2018 ELY WILLETT FACC, ALI FACP CCDS Ot Z79.899 OTHER [facility]CI (CURRENT) DRUG THERAPY 05/15/2018 SONU MATHEWS DOLINE S Ot J44.9 CHRONIC OBSTRUCTIVE PULMONARY DISEASE, U 05/15/2018 JOELLE MATHEWS DOQUELINE S Ot J44.9 CHRONIC OBSTRUCTIVE PULMONARY DISEASE, U 05/15/2018 JOELLE MATHEWS DOQUELINE S Ot R06.09 OTHER FORMS OF DYSPNEA 05/15/2018 SONU MATHEWS DOLINE S Ot J98.4 OTHER DISORDERS OF LUNG 05/15/2018 SOFI DUNN MD Ot N20.0 CALCULUS OF KIDNEY 05/15/2018 SOFI DUNN MD Ot Z01.818 ENCOUNTER FOR OTHER PREPROCEDURAL EXAMIN 05/15/2018 SOFI DUNN MD Ot N20.0 CALCULUS OF KIDNEY 05/15/2018 ELY WILLETT FACC, ALI FACP CCDS Ot G25.0 ESSENTIAL TREMOR 05/15/2018 ELY WILLETT FACC, ALI FACP CCDS Ot I25.10 ATHSCL HEART DISEASE OF [place] CORONARY 05/15/2018 ELY WILLETT FACC, ALI FACP CCDS Ot R00.2 PALPITATIONS 05/15/2018 ELY WILLETT FACC, ALI FACP CCDS Ot Z79.02 ETL DEVELOPER (CURRENT) USE OF ANTITHROMBOTI 05/15/2018 ELY WILLETT FACC, ALI FACP CCDS Ot Z79.899 OTHER ETL DEVELOPER (CURRENT) DRUG THERAPY 05/15/2018 JOELLE MATHEWS DOQUELINE S Ot J44.9 CHRONIC OBSTRUCTIVE PULMONARY DISEASE, U 05/15/2018 JOELLE MATHEWS DOQUELINE S Ot J44.9 CHRONIC OBSTRUCTIVE PULMONARY DISEASE, U 05/15/2018 SONU MATHEWS DOLINE S Ot R06.09 OTHER FORMS OF DYSPNEA 05/15/2018 JOELLE MATHEWS DOQUELINE S Ot J98.4 OTHER DISORDERS OF LUNG 05/15/2018 SOFI DUNN MD Ot N20.0 CALCULUS OF KIDNEY 05/15/2018 SOFI DUNN MD Ot Z01.818 ENCOUNTER FOR OTHER PREPROCEDURAL EXAMIN 05/15/2018 SOFI DUNN MD Ot N20.0 CALCULUS OF KIDNEY 05/16/2018 TOR, BABAK R TRANSLITERATOR Ot N50.812 LEFT TESTICULAR PAIN 05/16/2018 TOR, BABAK R TRANSLITERATOR Ot R10.2 PELVIC AND PERINEAL PAIN 05/22/2018 TOR, BABAK R TRANSLITERATOR Ot N50.812 LEFT TESTICULAR PAIN 05/22/2018 TOR, BABAK R TRANSLITERATOR Ot R10.2 PELVIC AND PERINEAL PAIN 06/05/2018 BABAK LENTZ TRANSLITERATOR Ot N50.812 LEFT TESTICULAR PAIN 06/05/2018 BABAK LENTZ TRANSLITERATOR Ot R10.2 PELVIC AND PERINEAL PAIN 06/27/2018 TORBABAK ABDALLA TRANSLITERATOR Ot N50.812 LEFT TESTICULAR PAIN 06/27/2018 TORBABAK ABDALLA TRANSLITERATOR Ot R10.2 PELVIC AND PERINEAL PAIN 02/03/2019 MONA WILLETT, SOFI Stout Ot K57.32 DVTRCLI OF LG INT W/O PERFORATION OR ABS 02/03/2019 MONA WILLETT, SOFI Stout Ot N20.0 CALCULUS OF KIDNEY 02/03/2019 SOFI DUNN MD, Ot K57.32 DVTRCLI OF LG INT W/O PERFORATION OR ABS 02/03/2019 MONA WILLETT, SOFI Stout Ot N20.0 CALCULUS OF KIDNEY Procedures There is no data. Results Test [...] Automated erythrocyte mean corpuscular hemoglobin concentration measurement (mass/volume) 34 g/dL 32-36 Automated erythrocyte distribution width ratio 12.4 % 10.0- 14.5 Automated blood platelet count (count/volume) 214 10*3/uL [...] Serum or plasma aspartate aminotransferase measurement (enzymatic activity/volume) 24 U/L 5-34 Serum or plasma alanine aminotransferase measurement (enzymatic activity/volume) 13 U/L 0-55 Serum or plasma protein measurement (mass/volume) 7.1 g/dL 6.4-8.2 Serum or plasma albumin measurement (mass/volume) 4.2 g/dL 3.2-4.5 Lipid 1996 panel - 08/28/17 07:10 Serum or plasma triglyceride measurement (mass/volume) 86 mg/dL <150 Serum or plasma cholesterol measurement (mass/volume) 173 mg/dL < 200 Serum or plasma cholesterol in HDL measurement (mass/volume) 57 mg/dL 40-60 Cholesterol in LDL [mass/volume] in serum or plasma by direct assay 95 mg/dL 1-129 Serum or plasma cholesterol in VLDL measurement (mass/volume) 17 mg/dL 5-40 Methicillin resistant Staphylococcus aureus (MRSA) screening culture - 08/28/17 07:10 Methicillin resistant Staphylococcus aureus (MRSA) screening culture NEG NRG Complete urinalysis with reflex to culture - 01/19/18 17:55 Urine color determination YELLOW NRG Urine clarity determination CLEAR NRG Urine pH measurement by test strip 5 5-9 Specific gravity of urine by test strip 1.020 1.016-1.022 Urine protein assay by test strip, semi-quantitative [...] sediment leukocyte count by microscopy (number/high power field) NONE NRG Bacteria detection in urine sediment [...] Automated erythrocyte mean corpuscular hemoglobin concentration measurement (mass/volume) 34 g/dL 32-36 Automated erythrocyte distribution width ratio 12.6 % 10.0- 14.5 Automated blood platelet count (count/volume) 201 10*3/uL [...] Blood monocytes automated count (number/volume) 0.7 10*3 0.0- 1.0 Automated eosinophil count 0.1 10*3/uL 0.0-0.3 Automated [...] Serum or plasma aspartate aminotransferase measurement (enzymatic activity/volume) 18 U/L 5-34 Serum or plasma alanine aminotransferase measurement (enzymatic activity/volume) 10 U/L 0-55 Serum or plasma protein measurement (mass/volume) 7.0 g/dL 6.4-8.2 Serum or plasma albumin measurement (mass/volume) 4.2 g/dL 3.2-4.5 Serum or plasma amylase measurement (enzymatic activity/volume) - 01/19/18 18:25 Serum or plasma amylase measurement (enzymatic activity/volume) 56 U/L 25-125 Lipase - 01/19/18 18:25 Lipase 23 U/L 8-78 Methicillin resistant Staphylococcus aureus (MRSA) screening culture - 01/30/18 11:50 Methicillin resistant Staphylococcus aureus (MRSA) screening culture NEG NRG Encounters ACCT No. Visit Date/Time Discharge Status Pt. Type Provider Facility Loc./Unit Complaint 11/201701/30/2019 00:00:04 01/30/2019 23:59:59 CLS Outpatient Vonnie Mathews [id number] 2019 07:56:00 2019 23:59:59 CLS Outpatient SOFI DUNN MD [facility] RAD H/O STONE [id number] 05/15/2018 11:32:00 05/15/2018 23:59:59 CLS Outpatient BABAK LENTZ APRN [facility] RAD PELVIC PAIN, RULE OUT TESTICULAR TORSION [id number] 02/26/2018 09:45:00 02/26/2018 23:59:59 CLS Preadmit SOFI DUNN MD [facility] LEFT RENAL STONE [id number] 02/25/2018 14:04:00 02/25/2018 23:59:59 CLS Outpatient SOFI DUNN MD [facility] RAD RENAL STONE [id number] 02/25/2018 09:29:00 02/25/2018 23:59:59 CLS Outpatient SOFI DUNN MD [facility] PREOP LEFT RENAL STONE [id number] 02/05/2018 07:39:00 02/05/2018 12:15:00 DIS Outpatient SOFI DUNN MD [facility] SDC LEFT RENAL STONE [id number] 01/30/2018 05:40:00 01/30/2018 12:09:00 DIS Outpatient SOFI DUNN MD [facility] PREOP LEFT RENAL STONE [id number] 01/21/2018 11:25:00 01/21/2018 23:59:59 CLS Outpatient SOFI DUNN MD [facility] RAD XRAY KUB [id number] 01/19/2018 17:26:00 01/19/2018 20:25:00 DIS Emergency JUAN IRWIN DO [facility] ER R SIDE BACK/ABD PAIN [id number] 09/11/2017 09:36:00 09/11/2017 23:59:59 CLS Outpatient NAMRATA MACKENZIE VONNIE S [facility] RAD DYSPNEA [id number] 09/05/2017 09:38:00 09/05/2017 23:59:59 CLS Outpatient NAMRATA DO VONNIE S [facility] RT COPD [id number] 08/28/2017 06:46:00 08/28/2017 14:00:00 DIS Outpatient ELY WILLETT FACC, POORNIMA MORGAN CCDS [facility] CATH CAD,ANGINA, SOB,FATIGUE [id number] 08/21/2017 14:09:00 08/21/2017 23:59:59 CLS Outpatient NAMRATA MACKENZIE VONNIE S [facility] RAD R07.89, R06.0 [id number] 08/10/2016 18:44:00 08/10/2016 22:38:00 DIS Emergency ALEXIS DEAN [facility] ER ALLERGIC REACTION [id number] 06/20/2016 11:27:00 06/20/2016 18:00:00 DIS Outpatient ROSALINDA DOS SANTOS DO [facility] SDC SCREENING [id number] 06/19/2016 14:00:00 06/19/2016 16:19:00 DIS Outpatient ROSALINDA DOS SANTOS DO [facility] PREOP SCREENING [id number] 05/21/2016 19:09:00 05/21/2016 21:49:00 DIS Emergency ALEXIS DEAN [facility] ER RIGHT HAND DOG BITE [id number] 10/19/2015 09:48:00 10/19/2015 23:59:59 CLS Outpatient ELY WILLETT FACC, POORNIMA MORGAN CCDS [facility] CATH PALPITATIONS,LIGHT HEADED NESS, SOB [id number] 06/01/2015 11:41:00 06/01/2015 18:45:00 DIS Outpatient ELY WILLETT FACAruna, POORNIMA MORGAN CCDS [facility] CATH CORONARY ARTERY DISEASE CP HLD [id number] 02/04/2019 08:00:00 PEN Preadmit ELY WILLETT FACC, POORNIMA MORGAN CCDS [facility] CATH LOOP RECORDER BATTERY AT END OF LIFE,PALPITATIONS
[2019-02-04] MEDS ORDERED: LIDOCAINE 1% INJ 20 ML 20 ML VIAL INJ ONE (07:15)
[2019-02-04 07:25] VITALS: BP 120/80
[2019-02-04] MEDS ORDERED: LIDOCAINE 1% INJ 20 ML 20 ML VIAL ONE (07:30)
--- NOTE | 2019-02-04 08:41 | Cardiac Procedure Note-CS/ASA ---
Pre-Procedure Note Pre-Op Procedure Note H&P Reviewed The H&P was reviewed, patient examined and no changes noted. Date H&P Reviewed: February 04, 2019 Time H&P Reviewed: 08:41 Conscious Sedation Pre-Proced Time 08:41 ASA Score 3 For ASA 3 and 4: Consider anesthesia and medical clearance. Also, for patients with a history of failed moderate sedation consider anesthesia. Airway Lungs Heart ASA score ASA 1: a normal healthy patient ASA 2: a patient with a mild systemic disease (mid diabetes, controlled hypertension, obesity ASA 3: a patient with a severe systemic disease that limits activity (angina, COPD, prior Myocardial infarction) ASA 4: a patient with an incapacitating disease that is a constant threat to life (CHF, renal failure) ASA 5: a moribund patient not expected to survive 24 hrs. (ruptured aneurysm) ASA 6: a declared brain- patient whose organs are being harvested. For emergent operations, add the letter E after the classification Mallampati Classification Grade 2 Sedation Plan Analgesia, Amnesia, Plan communicated to team members, Discussed options with patient/fam, Discussed risks with patient/fam The patient is an appropriate candidate to undergo the planned procedure, sedation, and anesthesia. The patient immediately re-assessed prior to indication. POORNIMA GRAVES MD FACP FAC CCDS February 04, 2019 08:41
--- NOTE | 2019-02-04 12:57 | OPERATIVE REPORT ---
DATE OF SERVICE: 02/04/2019 PREOPERATIVE DIAGNOSIS: Implantable loop recorder at end of life. POSTOPERATIVE DIAGNOSIS: Implantable loop recorder at end of life. PROCEDURE PERFORMED: Implantable loop recorder explantation. DESCRIPTION OF PROCEDURE: Informed consent was obtained. [facility] The left prepectoral area, the site of implantable loop recorder implantation, was prepared and draped in the usual sterile fashion. Lidocaine 1% was used for local anesthesia. A small incision was made anterior to the device and it was removed without any significant complications. The wound was closed with Dermabond and Steri-Strips. He tolerated the procedure well. Job ID: [id number] DocumentID: [id number] Dictated Date: 02/04/2019 08:58:34 Warehouse Team Member Date: 02/04/2019 12:57:19 Dictated By: POORNIMA GRAVES MD, MA, FACP, FACC,
== END 2019-02-04 09:19 | disposition home or self-care (01) ==
LOC: CATH 07:06
PROVIDERS: ATTEND Internal Medicine Cardiovascular Disease
DX: Z45.09 Encounter for adjustment and management of other cardiac device (principal); R00.2 Palpitations; I25.119 Atherosclerotic heart disease of native coronary artery with unspecified angina pectoris; I95.9 Hypotension, unspecified; R53.83 Other fatigue; Z79.02 Long term (current) use of antithrombotics/antiplatelets; Z79.82 Long term (current) use of aspirin; Z79.899 Other long term (current) drug therapy; Z87.891 Personal history of nicotine dependence
CPT/HCPCS: 33286

== ENCOUNTER 2019-02-09 15:46 | Emergency (ER) | payer MEDICARE | END 2019-02-09 18:04 | disposition home or self-care (01) | LOC: ER 15:46 ==

== ENCOUNTER → 2019-02-12 | Outpatient (CLI) | payer MEDICARE ==
--- NOTE | 2019-02-12 15:58 | Diagnostic Imaging Report ---
PROCEDURE: US Bilateral lower extremity arterial. TECHNIQUE: Multiple real-time grayscale images are obtained through both lower extremity arterial systems with color Doppler imaging and color Doppler spectral analysis. INDICATION: Right foot weakness. FINDINGS: Primarily triphasic and biphasic waveforms are identified throughout both lower extremity arterial systems. Velocities are symmetric bilaterally. No velocity elevation is seen. No high-grade stenosis or occlusion is detected. There is flow at the ankles via the posterior tibial and dorsalis pedis arteries. Both anterior tibial arteries are patent. IMPRESSION: Unremarkable bilateral lower extremity arterial Doppler. Dictated by: Dictated on workstation # [id number]
== END ==
LOC: RAD 14:26
PROVIDERS: ATTEND Internal Medicine Cardiovascular Disease
DX: I25.10 Atherosclerotic heart disease of native coronary artery without angina pectoris (principal); I65.23 Occlusion and stenosis of bilateral carotid arteries; M62.81 Muscle weakness (generalized)
CPT/HCPCS: 93925

== ENCOUNTER → 2019-02-20 | Outpatient (CLI) | payer MEDICARE ==
--- NOTE | 2019-02-20 14:52 | Diagnostic Imaging Report ---
PROCEDURE: CT head without contrast. TECHNIQUE: Multiple contiguous axial images were obtained through the brain without the use of intravenous contrast. Auto Exposure Controls were utilized during the CT exam to meet ALARA standards for radiation dose reduction. INDICATION: Right leg numbness for a couple of weeks. COMPARISON: No prior studies are available for comparison. FINDINGS: Ventricles and sulci are within normal limits. No sulcal effacement, midline shift or hemorrhage is detected. Cisterns are patent. Visualized paranasal sinuses are clear. There are postoperative changes to the paranasal sinuses. IMPRESSION: No acute intracranial process is detected. Dictated by: Dictated on workstation # [id number]
== END ==
LOC: RAD 11:32
PROVIDERS: ATTEND Family Medicine
DX: R20.0 Anesthesia of skin (principal)
CPT/HCPCS: 70450

== ENCOUNTER 2019-06-11 05:39 | Outpatient (CLI) | payer MEDICARE ==
[~2019-06-11] VITALS: Ht 180.3 cm; Wt 62.2 kg
[2019-06-11] MEDS ORDERED: RT-ALBUINH IH (09:09)
[2019-06-11] MEDS ORDERED: CLOP75TA28 PO (09:09)
[2019-06-11] MEDS ORDERED: MONT10TA24 PO (09:09)
[2019-06-11] MEDS ORDERED: ASPI-586 PO (09:09)
[2019-06-11] MEDS ORDERED: PRIM50TA33 PO (09:09)
[2019-06-11] MEDS ORDERED: METO-333 PO (09:09)
[2019-06-11] MEDS ORDERED: PREG75CA PO (09:09)
== END 2019-06-11 10:22 | disposition home or self-care (01) ==
LOC: PREOP 05:39
PROVIDERS: ATTEND Surgery
DX: Z01.818 Encounter for other preprocedural examination (principal)

== ENCOUNTER 2019-06-12 11:40 | Day surgery (SDC) | payer MEDICARE ==
[2019-06-12] VITALS (8 sets, daily range): BP systolic 83–126; BP diastolic 51–74
[~2019-06-12 11:40] MED LIST changes: +ASPI-586 PO; +CLOP75TA28 PO; +METO-333 PO; +MONT10TA24 PO; +PREG75CA PO; +PRIM50TA33 PO; +RT-ALBUINH IH
[2019-06-12] MEDS ORDERED: LACTATED RINGERS 1,000 ML IV ONE (11:48)
[2019-06-12] MEDS ORDERED: HURRICAINE EXT TUBE (BENZOCAINE) ONE (12:08)
[2019-06-12] MEDS ORDERED: LACTATED RINGERS 1,000 ML IV STA (12:12)
[2019-06-12] MEDS ORDERED: HURRICAINE EXT TUBE (BENZOCAINE) XX PRN (12:15)
--- NOTE | 2019-06-12 12:37 | Progress Note-Pre Operative ---
Pre-Operative Progress Note H&P Reviewed The H&P was reviewed, patient examined and no changes noted. Date Seen by Provider: Jun 12, 2019 Time Seen by Provider: 12:36 Date H&P Reviewed: Jun 12, 2019 Time H&P Reviewed: 12:36 Pre-Operative Diagnosis: gerd, bright red blood per rectum, diverticulosis ROSALINDA DOS SANTOS DO Jun 12, 2019 12:37
[2019-06-12] MEDS ORDERED: proPOfol 200 MG/20 ML (DIPRIVAN) VIAL IV ONE (12:38)
[2019-06-12] MEDS ORDERED: MIDAZOLAM 2 MG/2 ML (VERSED) VIAL ONE (12:38)
[2019-06-12] MEDS ORDERED: ONDANSETRON 4 MG/2 ML (SDV) Z0FRAN IVP PRN (15:00)
[2019-06-12] MEDS ORDERED: morphine INJ 10 MG/ML 1ML (SYR OR VIAL) IVP ONE (15:00)
[2019-06-12] MEDS ORDERED: RT-ALBUTEROL SULF 2.5 MG/3 ML PRE-MIX VIAL INH ONE (15:00)
[2019-06-12] MEDS ORDERED: HYDROmorphone 2 MG/ML VIAL (DILAUDID) IV ONE (15:00)
--- NOTE | 2019-06-12 19:08 | Progress Note-Post Operative ---
Post-Operative Progess Note Surgeon (s)/Forepart Rounder (s) Surgeon ROSALINDA DOS SANTOS DO Forepart Rounder: na Pre-Operative Diagnosis gerd, bright red blood per rectum, diverticulosis Post-Operative Diagnosis hiatal hernia, diverticulosis, colon polyps Procedure & Operative Findings Date of Procedure 06/12/19 Procedure Performed/Findings egd c biopsy and colonoscopy c hot bx polypectomy x 3 Anesthesia Type per mda Estimated Blood Loss Estimated blood loss (mL): min Specimens/Packing Specimens Removed antrum, ascending, hepatic flexure and transverse colon polyps ROSALINDA DOS SANTOS DO Jun 12, 2019 19:08
--- NOTE | 2019-06-13 06:08 | OPERATIVE REPORT ---
DATE OF SERVICE: 06/12/2019 PREOPERATIVE DIAGNOSES: Gastroesophageal reflux disease, bright red blood per rectum, diverticulosis. POSTOPERATIVE DIAGNOSES: Hiatal hernia, diverticulosis, colon polyps. PROCEDURES PERFORMED: EGD with biopsy and colonoscopy with hot biopsy polypectomy x3. SURGEON: Rosalinda Day DO ANESTHESIA: Per MDA. ESTIMATED BLOOD LOSS: None. COMPLICATIONS: None. SPECIMENS: Antrum, ascending colon polyp, hepatic flexure colon polyp, and transverse colon polyp. INDICATIONS: The patient is a 69-year-old male with recent blood per rectum and he has gastroesophageal reflux disease. The patient is also with known diverticulosis. He understands risks and benefits of procedure and wished to proceed with procedure. Consent was signed in the chart. DESCRIPTION OF PROCEDURE: The patient was taken to the endoscopy suite, placed in left lateral recumbent position. Timeout was performed. Scope was inserted into mouth, down the esophagus, stomach and into the duodenum without difficulty. There were no polyps, masses or ulcerations within the duodenum. Scope was then slowly retracted back into the stomach where it was further insufflated. No polyps, masses or ulcerations. Questionable slight erythematous changes of the antrum. Biopsy was obtained. Scope was retroflexed noting a small hiatal hernia, no other pathology noted. Scope was returned to its normal position, slowly withdrawn to the distal esophagus, which had normal appearance. No polyps, masses or ulcerations. No erythematous changes. Scope was slowly retracted back until completely removed, noting no other pathology. Digital rectal exam was performed. There were no palpable polyps, masses or ulcerations. Scope was inserted in the rectum, advanced all the way to the cecum with minimal difficulty. Prep was adequate. Scope was then slowly retracted back. There were no polyps, masses or ulcerations in the cecum. In the ascending colon, there was a small polyp, on which hot biopsy polypectomy was performed. Scope was continuously retracted back and in the hepatic flexure region another small polyp was present, on which hot biopsy polypectomy was performed. Scope was then continued to be slowly retracted back and in the transverse colon, there was a small polyp, on which hot biopsy polypectomy was performed. Scope was then continued to be slowly retracted back. There were no other polyps, masses or ulcerations within the remainder of the transverse colon, descending colon, and sigmoid colon. Through the sigmoid colon, [id number] amount of diverticulosis was present. Scope was then continued to be slowly retracted back into the rectum, where it was also retroflexed noting no other pathology. Scope was returned to its normal position, slowly withdrawn until completely removed noting no other pathology. The patient tolerated procedure well without any complications. He was taken to recovery room in stable condition. RECOMMENDATIONS: The patient will follow up in the office in 2 weeks to discuss biopsy results. He will need repeat colonoscopy in 5 years due to a history of polyps. With diverticulosis, would recommend a high fiber diet. No source of his bleeding was found, but I suspect most likely a diverticular bleed previously. If he has any return of bleeding, he should be reevaluated at that time or any other GI symptoms should be reevaluated at that time. Further recommendations pending biopsy results. Job ID: [id number] DocumentID: [id number] Dictated Date: 06/12/2019 19:12:54 Turf Grower Date: 06/13/2019 02:01:35 Dictated By: ROSALINDA DAY DO
== END 2019-06-12 14:00 | disposition home or self-care (01) ==
LOC: ENDO 11:40
PROVIDERS: ATTEND Surgery
DX: K21.9 Gastro-esophageal reflux disease without esophagitis (principal); K29.50 Unspecified chronic gastritis without bleeding; B96.81 Helicobacter pylori [H. pylori] as the cause of diseases classified elsewhere; D12.2 Benign neoplasm of ascending colon; D12.3 Benign neoplasm of transverse colon; K63.5 Polyp of colon; K62.5 Hemorrhage of anus and rectum; K57.30 Diverticulosis of large intestine without perforation or abscess without bleeding; K44.9 Diaphragmatic hernia without obstruction or gangrene; I10 Essential (primary) hypertension; I25.119 Atherosclerotic heart disease of native coronary artery with unspecified angina pectoris; I95.9 Hypotension, unspecified; E78.5 Hyperlipidemia, unspecified; Z95.1 Presence of aortocoronary bypass graft; Z79.899 Other long term (current) drug therapy; Z79.02 Long term (current) use of antithrombotics/antiplatelets; Z79.82 Long term (current) use of aspirin; Z87.891 Personal history of nicotine dependence; Z80.9 Family history of malignant neoplasm, unspecified; Z82.49 Family history of ischemic heart disease and other diseases of the circulatory system; Z83.6 Family history of other diseases of the respiratory system
CPT/HCPCS: 88305; 88342

== ENCOUNTER 2019-09-30 10:24 | Outpatient (RCR) | payer MEDICARE ==
[~2019-09-30 10:24] MED LIST changes: -CLON0.5T13 PO; +CLON0.5T4 PO; -MONT10TA24 PO; +MONT10TA26 PO; +SIMV40TA25 PO; -SIMV40TA4 PO; -TAMS0.4C98 PO; +TMSL.4C PO
== END 2019-12-29 | disposition home or self-care (01) ==
LOC: LAB 10:24
PROVIDERS: ATTEND Surgery
DX: Z09 Encounter for follow-up examination after completed treatment for conditions other than malignant neoplasm (principal); B96.81 Helicobacter pylori [H. pylori] as the cause of diseases classified elsewhere
CPT/HCPCS: 36415; 87338

== ENCOUNTER → 2019-10-08 | Outpatient (CLI) | payer MEDICARE ==
[~2019-10-08] MED LIST changes: +MONT10TA24 PO; -MONT10TA26 PO
--- NOTE | 2019-10-08 13:47 | Diagnostic Imaging Report ---
INDICATION: Right perineal region mass. FINDINGS: At the site of patient's palpable abnormality in right perineum, there is an approximately 1.6 x 0.8 x 1.6 cm nodular structure. This is generally hypoechoic with central hilar type region of echogenicity which may represent fat-containing lymph node. No focal fluid collection is identified. There is no evidence of posterior acoustic shadow or other suspicious feature. IMPRESSION: There is a hypoechoic nodule in the subcutaneous tissues of the right perineum corresponding to patient's palpable abnormality. Given central echogenicity, this may represent fat-containing lymph node. Clinical correlation would be of use. Dictated by: Dictated on workstation # [id number]
== END ==
LOC: RAD 12:17
PROVIDERS: ATTEND Surgery
DX: R22.2 Localized swelling, mass and lump, trunk (principal)
CPT/HCPCS: 76999

== ENCOUNTER 2020-02-10 07:53 | Day surgery (SDC) | payer MEDICARE ==
[2020-02-10] VITALS (11 sets, daily range): BP systolic 95–124; BP diastolic 59–75
[~2020-02-10] VITALS: Ht 180 cm; Wt 67.0 kg
[~2020-02-10 07:53] MED LIST changes: +HEParin (CATH LAB) 2,000 ML IV ONE; +LIDOCAINE 1% INJ 20 ML 20 ML VIAL ONE; -MONT10TA24 PO; +MONT10TA26 PO
[2020-02-10] MEDS ORDERED: NS IV 1000 ML 1,000 ML IV SCH ×2 (07:56→10:42)
--- OUTSIDE RECORDS SUMMARY | 2020-02-10 08:00 | XMS REPORT | Clinical Summary ---
Author Author [facility] Organization [facility] Address Unknown Phone Unavailable Care Team Providers Care Clerical Aide Name Role Phone Rosalia Talavera RN Unavailable Unavailable Vonnie Mathews MD PCP Source Comments Some departments are not documenting in the electronic medical record. If you d o not see the information that you expected, contact Release of Information in [facility] Information Management department at [phone] for further assistan ce in locating additional records.[facility] Allergies No Known Allergies Medications End Date Status Medication Sig Dispensed Refills Start Date Active clopiDOGrel (PLAVIX) 75 Take 75 mg [...] Take 1 Tab by 60 Tab 3 mg tablet mouth twice 3 daily. Active atorvastatin (LIPITOR) 40 Take 1 Tab by 30 Tab 3 mg tablet mouth at 3 bedtime daily. Active nitroglycerin (NITROSTAT) Place 1 Tab 25 Tab 3 0.4 mg tablet under tongue 3 every 5 minutes as needed for Chest Pain. Active clonazePAM (KLONOPIN) 1 Take 1 mg by 0 mg tablet mouth daily. Active primidone (MYSOLINE) 50 Take 50 mg by 0 mg tablet mouth twice daily. Active pregabalin (LYRICA) 150 Take 150 mg 0 mg capsule by mouth daily. Active montelukast sodium Take by 0 (MONTELUKAST PO) mouth daily. Active Problems Problem Noted Date CAD (coronary artery disease), [place] coronary artery 02/19/2013 Overview: S/p PCI in 2010 and 2011 to LAD at [facility] in [place]. FH: premature coronary heart disease 02/19/2013 HLD (hyperlipidemia) 02/19/2013 Back pain, chronic 02/19/2013 Immunizations Name Administration Dates Next Due Pneumococcal Vaccine 02/21/2013 (23-Chana Adult) Family History Medical History Relation Name Comments Cancer Father of leukemia ag e 54 Bronchitis Mother of ARDs, chron ic bronchitis Coronary Artery Disease Sister Relation Name Status Comments Father Mother Sister Social History Date Tobacco Use Types Packs/Day Years Used Former Smoker Cigarettes Smokeless Tobacco: Current User Comments: smoked in 20s, quit in 1970s Drinks/Week oz/Week Comments Alcohol Use 1 Standard drinks or equivalent 0.8 occas recreational Yes Sex Assigned at Date Recorded Not on file Industry Job Start Date Occupation Not on file Not on file Not on file Travel End Travel History Travel Start No recent travel history available. Last Filed Vital Signs Reading Time Taken Comments Vital Sign 94/60 04/10/2019 2:47 PM CDT Blood Pressure 79 04/10/2019 2:47 PM CDT Pulse 36.7 C (98 F) 04/10/2019 2:47 PM CDT Temperature 12 04/10/2019 2:47 PM CDT Respiratory Rate 98% 02/21/2013 6:47 AM CDT Oxygen Saturation - - Inhaled Oxygen Concentration 61.3 kg (135 lb 3.2 oz) 04/10/2019 2:47 PM CDT Weight 180.3 cm (5' 11") 04/10/2019 2:47 PM CDT Approx per pt Height 18.86 04/10/2019 2:47 PM CDT Body Mass Index Plan of Treatment Health Maintenance Due Date Last Done Comments MEDICARE ANNUAL WELLNESS 1950 VISIT DTAP/TDAP VACCINES (1 - 01/30/1970 Tdap) HEPATITIS C SCREENING 01/30/1970 PHYSICAL (COMPREHENSIVE) 01/30/1970 EXAM COLORECTAL CANCER 01/30/2002 SCREENING SHINGLES RECOMBINANT 01/30/2002 VACCINE (1 of 2) ABDOMINAL AORTIC ANEURYSM 01/30/2017 SCREENING PNEUMONIA (PPSV23) 02/21/2018 02/21/2013 VACCINE (1 of 1 - PPSV23) INFLUENZA VACCINE 06/17/2020 Results Not on filefrom Last 3 Months Insurance Type Payer Benefit Subscriber ID Effective Phone Address Plan / Dates Group Medicare MEDICARE MEDICARE xxxxxxxxxxx [id number] PART A AND resent B Advance Directives Patient Head Teller Explanation Type Date Recorded Advance Directive/DPOA Date Inactivated Comments Code Status Date Activated 02/21/2013 1:03 PM Full Code 02/19/2013 5:20 PM Provider has discussed Code Status Yes w/Patient or Family? 02/19/2013 5:20 PM Full Code 02/19/2013 4:41 PM Provider has discussed Code Status No, more discussi on w/Patient or Family? needed
--- OUTSIDE RECORDS SUMMARY | 2020-02-10 08:01 | XMS REPORT | Encounter Summary ---
Author Author [facility] Organization [facility] Address Unknown Phone Unavailable Care Team Providers Care Technical Services Representative Name Role Phone Vonnie Mathews PCP Encounter Details Care Team Description Date Type Department Davey Cuello MD [address] [facility] [address] [place] [address] [phone] 12/22/2013 [facility] Visit Social History Date Tobacco Use Types Packs/Day Years Used Never Assessed Sex Assigned at Date Recorded Not on file Industry Job Start Date Occupation Not on file Not on file Not on file Travel End Travel History Travel Start No recent travel history available. documented as of this encounter Plan of Treatment Not on filedocumented as of this encounter Visit Diagnoses Not on filedocumented in this encounter
--- OUTSIDE RECORDS SUMMARY | 2020-02-10 08:01 | XMS REPORT | Encounter Summary ---
Author Author [facility] Organization [facility] Address Unknown Phone Unavailable Care Team Providers Care Stationary Plant Operators Name Role Phone Vonnie Mathews PCP Encounter Details Care Team Description Date [place] [address] [facility] [address] [place] [address] [phone] [facility] [address] [facility] 12/12/2013 [place] [address] Social History Date Tobacco Use Types Packs/Day Years Used Never Assessed Sex Assigned at Date Recorded Not on file Industry Job Start Date Occupation Not on file Not on file Not on file Travel End Travel History Travel Start No recent travel history available. documented as of this encounter Last Filed Vital Signs Reading Time Taken Comments Vital Sign - - Blood Pressure - - Pulse - - Temperature - - Respiratory Rate - - Oxygen Saturation - - Inhaled Oxygen Concentration 61.8 kg (136 lb 3.9 oz) 12/12/2013 5:00 AM CDT Weight 180 cm (5' 10.87") 12/12/2013 12:00 AM CDT Height 19.07 12/12/2013 12:00 AM CDT Body Mass Index documented in this encounter Discharge Summaries * Deirdre Wilder RN TELEPRINTER INSTALLER-C - 12/12/2013 9:14 AM CDT Name: NASH REDMAN Date of : 1950 Attending Physician: Geoff Lafleur III, MD Date of Admission: 12/10/2013 Date of Discharge: 12/12/2013 PRIMARY CARE PHYSICIAN: Dr. Vonnie Mathews. Dear Dr. Mathews: We are dismissing your patient from [facility] today [facility] for noncardiac chest pain. Mr. Nash Redman is a 63-year-old pleasant male with a history of 4 prior stents at the outside facility, presented with left-sided chest pressure t hat started at 3:00 p.m. on day of arrival and was radiating down his left arm. He also complained of left arm numbness and tingling in his fingers. This pain occurred at rest and did not improve with nitroglycerin, but did improve with morphine in the emergency department. Patient had reported that these were similar symptoms that he experienced prior to his PCI last time. Patient has been on Plavix and aspirin since last coronary angiogram. Transthoracic echocardiogram completed this admission showed normal left ventric ular systolic function with an estimated ejection fraction of 60%. Normal wall thickness. Normal wall motion. Normal left ventricular dimensions. Normal rig ht ventricular size and systolic function. Normal right and left atrial size. Mild diastolic dysfunction. Sclerotic aortic valve without regurgitation. Normal mitral valve with trivial regurgitation. Normal pulmonic valve with trivial regurgitation. Normal tricuspid valve with trivial regurgitation. Estimated PA pressure 26 mmHg. No pericardial effusion. Normal ascending aortic dimensions. No obvious intracard iac masses or thrombi. Troponins during this hospitalization were less than 0.01 x3. No acute EKG mon ges. Patient was taken to coronary catheterization laboratory and coronary angiogram was performed by Dr. Arnie Maxwell with the following anatomy identified, cor onary circulation is right dominant. Left main normal. Proximal LAD, there is 0% stenosis at the site of a prior stent. There was a IRENE grade III flow through the vessel (brisk flow). Mid LAD, there was a 0% stenosis at site of a prior stent. There was a IRENE grade III flow through the vessel (brisk flow). Circumflex normal. RCA normal. Total amount of contrast given was 25 mL. Total amount of fluoroscopy time was 2.1 minutes. Right femoral access hemostasis was obtained with Angio-Seal closu re device. Patient was brought to telemetry and monitored overnight without complications. Today at day of discharge, patient is up ambulating in his room. Patient denies palpitations, syncope, edema, or shortness of breath. Patient continues to co mplain of some chronic ongoing noncardiac chest discomfort. Patient also complains of some ri ght groin discomfort. Right femoral access site is soft. No hematoma, no bleeding, no femoral bruit. Pedal pulses intact. No pain or paresthesias. DISCHARGE DIAGNOSES: 1. Noncardiac chest pain. 2. Dyslipidemia. 3. Chronic back pain. 4. Prediabetes with hemoglobin A1c of 5.9. DISCHARGE LABS: Sodium 136, potassium 4.2, chloride 100, carbon dioxide 29, BUN 17, creatinine 1.1, glucose 98. White blood cell count 6.05, hemoglobin 12.7, hematocrit 36, platelets 169. Magnesium 2.0. Total cholesterol 114, triglyceri flores 92, HDL 41, LDL 55. Troponins less than 0.01 x3. TSH of 1.30. Hemoglobin A1c 5.9. PRINCIPAL PROCEDURES: Transthoracic echocardiogram and coronary angiogram. PHYSICAL EXAMINATION: VITAL SIGNS: Temperature of 97.9, heart rate 62, respiratory rate 20, blood pre ssure 98/54, O2 saturation 100% on room air. Tele shows normal sinus rhythm, he art rate in the 60s and 70s. CARDIAC: Regular rate and rhythm. No murmurs, rubs, or gallops. RESPIRATORY: Lungs are clear throughout all lung diego. Respirations easy. N o adventitious breath sounds. GASTROINTESTINAL: Abdomen soft, nontender, positive bowel sounds x4. SKIN: Warm, dry, and intact. Right femoral access site is soft. No hematoma, no bleeding, no femoral bruits. Pedal pulses intact. NEUROLOGIC: Alert and oriented x3, up ambulating in his room. DISPOSITION: Patient is being discharged home in stable condition as recommende d by Dr. Drew Rowland with the following plan in place: 1. Dual antiplatelet therapy with Plavix 75 mg p.o. daily and aspirin 81 mg p.o . daily. 2. I have added Protonix 40 mg p.o. daily to patient's regimen this admission. 3. Patient to continue atorvastatin 40 mg p.o. daily as lipid panel is well con trolled this admission. 4. Patient to continue his home dose of carvedilol 6.25 mg p.o. twice a day. 5. Patient was given prescription for sublingual nitroglycerin p.r.n. as direct ed for chest pain. 6. Unable to start ALEX inhibitor this admission secondary to lower blood pressu res. 7. Post angiogram restrictions reviewed. 8. Encouraged importance of heart healthy diet with regular routine exercise mo st days of the week. 9. Patient is going to follow up with Dr. Davey Cuello in 2-3 weeks here on the [facility] for followup. I have asked patient to see his primary care physician in 2 -4 weeks or sooner as needed. Patient and state understanding and agreed with current plan of care. Greater than 30 minutes spent on this discharge. DISCHARGE MEDICATIONS: Electronically generated summary for 1. ASPIRIN 81 mg Daily 2. ATORVASTATIN ORAL 40 MG Bedtime 3. CARVEDILOL ORAL 6.25 MG 2 times per day 4. CLOPIDOGREL ORAL 75 MG Daily 5. CYCLOBENZAPRINE ORAL 10 MG 3 times per day PRN 6. NITROGLYCERIN SUBLINGUAL 0.[address] 1 tab under tongue every 5 stefanie hector X3 doses as needed for chest pain. 7. OXYCODONE-ACETAMINOPHEN ORAL 5-325 MG 1 tablet Every 6 hours PRN 8. PROTONIX 40 mg Daily 9. ZOLPIDEM 5 mg Bedtime PRN Deirdre Wilder RN, TELEPRINTER INSTALLER-C [id number] cc: Vonnie Mathews DO documented in this encounter Medications at Time of Discharge Start Date End Date Medication Sig Dispensed Refills 12/12/2013 oxyCODONE-acetaminophen take 1 tablet 10 0 (PERCOCET) 5-325 mg per by oral route tablet every 6 hours as needed documented as of this encounter H&P Notes * Drew Rowland MD - 12/10/2013 9:25 PM CDT Name: NASH REDMAN Date of : 1950 Attending Physician: Geoff Lafleur III, MD Date of Admission: 12/10/2013 18:50:00 PRIMARY CARE PHYSICIAN: Vonnie Mathews D.O. This is not [facility] patient. CHIEF COMPLAINT: Chest pain. HISTORY OF PRESENT ILLNESS: Mr. Redman is a 63-year-old with 4 prior stents sarah roxy at outside hospital presenting with left-sided chest pressure since 3 p.m. r adiating down at the left arm and he also has numbness in his left fingers. Thi s occurred at rest, did not improve after 2 nitro, but did improve with morphine in the ED. T his is similar to previous event resulting in coronary angiogram with PCI. He h as been on Plavix and aspirin since his second coronary angiogram with PCI. He was taken off of Plavix after his first coronary angiogram and then had "second occlusion." H e denies shortness of breath, vision change, headache, lightheadedness, nausea, vomiting, fatigue, cough, fever, or chills. He says his last echo and stress we re in 2010 prior to his last coronary angiogram. He does not recall ejection fraction or a bnormality in his testing, but he was placed on carvedilol "not for hypertension ." He denies lower extremity edema or paroxysmal nocturnal dyspnea. PAST MEDICAL HISTORY: Coronary artery disease, dyslipidemia, PCI in March 2012 a nd January 2011, and chronic back pain. PAST SURGICAL HISTORY: Back surgery x3 and knee surgery as a teen. SOCIAL HISTORY: , former smoker, quit in 1975, smoked about a pack per w [place] for 8 years, occasionally drinks alcohol, never used illicit drugs. FAMILY HISTORY: Mother at age 62 as a result of chronic bronchitis. Rod r at age 54 from leukemia, has a brother with multiple cancers, no family h istory of premature coronary artery disease. MEDICATION ALLERGIES: No known drug allergies. No contrast allergy. REVIEW OF SYSTEMS: A 10-point review of systems negative except as noted in HPI . MEDICATIONS: Aspirin 81 mg daily, clopidogrel 75 mg daily, carvedilol 6.25 mg b .i.d., atorvastatin 40 mg daily, zolpidem 5 mg p.r.n., and cyclobenzaprine 10 mg p.r.n. PHYSICAL EXAMINATION: VITALS: Temperature 97.8, heart rate 83, respiratory rate 16, blood pressure 11 5/83, and pulse ox 100% on room air. APPEARANCE: No acute distress, thin. PSYCHIATRIC: Appropriate, alert, and oriented x3. EYES: Pupils are equal. Extraocular movement intact, anicteric. ENMT: [place] oral mucosa, atraumatic. CARDIOVASCULAR: Regular rate and rhythm. No murmur. No JVP. EXTREMITIES: No lower extremity edema. Equal pulses in upper and lower extremi ties. No carotid bruits. RESPIRATORY: Clear to auscultation bilaterally. Nonlabored breathing. GASTROINTESTINAL: Soft, nontender, nondistended. Bowel sounds present. SKIN: Warm and well perfused. NEUROLOGIC: No focal deficits, intact. No aphasia. MUSCULOSKELETAL: Walks with steady gait. Normal range of motion. LABORATORY DATA: Sodium 141, potassium 4.2, chloride 101, bicarb 29, BUN 12, cr eatinine 1.0, glucose 101. White blood cell 6.5, hemoglobin 14.3, platelets 216 . GFR 76. Troponin #1 less than 0.01. AST 38, ALT 46, alk phos 85, albumin 4. 3. EKG normal sinus rhythm. Chest x-ray, no acute cardiopulmonary process. IMPRESSION AND PLAN: Patient is a 63-year-old with: 1. Chest pain, likely unstable angina. We will rule out acute coronary syndrom e. Currently on heparin drip. We will continue. First troponin negative, we w ill trend. No EKG changes. We will ____. N.p.o. after midnight for possible s tress or cath in the a.m. 2. Coronary artery disease. Continue aspirin and Plavix. 3. Chronic back pain. Continue cyclobenzaprine p.r.n. 4. Discussed with Dr. Adams. Corrected sign line x2 per Analysis 12/17/2013/carloz Rowland MD Dictated By: Marcel Fenton MD [id number] CC: documented in this encounter Plan of Treatment Not on filedocumented as of this encounter Procedures Comments Procedure Name Priority Date/Time Associated Diag nosis RENAL PANEL Routine 12/12/2013 4:41 AM CDT MAGNESIUM Routine 12/12/2013 4:41 AM CDT LIPID PANEL Routine 12/12/2013 4:41 AM CDT COMPLETE BLOOD COUNT Routine 12/12/2013 4:41 AM CDT GLUCOSE POC Routine 12/11/2013 9:06 PM CDT GLUCOSE POC Routine 12/11/2013 4:50 PM CDT ECHO TRANSTHORACIC Routine 12/11/2013 2:36 PM CDT GLUCOSE POC Routine 12/11/2013 2:17 PM CDT INVASIVE CARDIOLOGY Routine 12/11/2013 REPORT 11:08 AM CDT GLUCOSE POC Routine 12/11/2013 7:04 AM CDT HEPARIN ANTI FACTOR XA, Timed 12/11/2013 UNFRACTIONATED HEPARIN 6:55 AM CDT TROPONIN Routine 12/11/2013 2:58 AM CDT TROPONIN STAT 12/11/2013 12:36 AM CDT THYROID STIMULATING Routine 12/11/2013 HORMONE 12:36 AM CDT MAGNESIUM Routine 12/11/2013 12:36 AM CDT LIPID PANEL Routine 12/11/2013 12:36 AM CDT HEPARIN ANTI FACTOR XA, Timed 12/11/2013 UNFRACTIONATED HEPARIN 12:36 AM CDT HEMOGLOBIN A1C Routine 12/11/2013 12:36 AM CDT COMPLETE BLOOD COUNT Routine 12/11/2013 12:36 AM CDT BASIC METABOLIC PANEL Routine 12/11/2013 12:36 AM CDT GLUCOSE POC Routine 12/10/2013 10:07 PM CDT GLUCOSE POC Routine 12/10/2013 8:54 PM CDT GLUCOSE POC Routine 12/10/2013 8:22 PM CDT ECG Routine 12/10/2013 6:53 PM CDT XR CHEST SINGLE VIEW 12/10/2013 FRONTAL 5:57 PM CDT APTT STAT 12/10/2013 5:53 PM CDT TROPONIN STAT 12/10/2013 5:53 PM CDT PROTHROMBIN TIME/INR STAT 12/10/2013 5:53 PM CDT COMPREHENSIVE METABOLIC STAT 12/10/2013 PANEL 5:53 PM CDT CBC AND DIFF (MANUAL DIFF STAT 12/10/2013 IF NECESSARY) 5:53 PM CDT ECG Routine 12/10/2013 5:28 PM CDT documented in this encounter Results * Lipid Panel (12/12/2013 4:41 AM CDT) Only the most recent of 2 results within the time period is included. Pathologist [facility] Cholesterol 114 100 - 200 mg/dL [facility] HDL Cholesterol 41 40 - 110 mg/dL [facility] Non-HDL 73 0 - 130 mg/dL [facility] Cholesterol [facility] Triglycerides 92 0 - 150 mg/dL [facility] LDL Cholesterol 55 0 - 99 mg/dL [facility] Cholesterol/HDL 2.8 0.0 - 4.[address] [facility] Ratio [facility] Specimen Blood Performing Organization Address City/State/Zipcode Ph one Number [address] [address] LABORATORIES * Renal Panel (12/12/2013 4:41 AM CDT) Sodium 136 133 - 147 MEQ/L [facility] Potassium 4.2 3.5 - 5.3 MEQ/L [facility] Chloride 100 96 - 112 MEQ/L [facility] Carbon Dioxide 29 20 - 32 MEQ/L [facility] Anion Gap 7 5 - 17 [facility] Calcium 8.7 8.4 - 10.5 mg/dL [facility] Glucose 98 70 - 100 mg/dL [facility] Albumin 3.6 3.5 - 5.0 g/dL [facility] Blood Urea 17 7 - 26 mg/dL [facility] Creatinine 1.1 0.6 - 1.3 mg/dL [facility] eGFR Male AA [address] [facility] Comment: REGIONAL Chronic Kidney Disease less LABORATORIES than 60 mL/min/1.73 sq.m Kidney failure less than 15 mL/min/1.73 sq.m eGFR Male [address] [facility] Non-AA Comment: REGIONAL Chronic Kidney Disease less LABORATORIES than 60 mL/min/1.73 sq.m Kidney failure less than 15 mL/min/1.73 sq.m Phosphorus 4.0 2.5 - 4.5 mg/dL [facility] Specimen Blood Performing Organization Address [facility] one Number [address] [phone] LABORATORIES * Magnesium (12/12/2013 4:41 AM CDT) Only the most recent of 2 results within the time period is included. Magnesium 2.0 1.4 - 2.7 mg/dL [facility] Specimen Blood Performing Organization Address City/[facility] one Number [address] [address] LABORATORIES * Complete Blood Count (12/12/2013 4:41 AM CDT) Only the most recent of 2 results within the time period is included. WBC 6.05 4.00 - 11.00 TH/uL [facility] RBC 4.27 (L) 4.31 - 5.84 MIL/uL [facility] Hemoglobin 12.7 (L) 13.0 - 17.0 g/dL [facility] Hematocrit 36 (L) 40 - 50 % [facility] MCV 85 80 - 99 fL [facility] MCH 30 27 - 34 pg [facility] MCHC 35 32 - 36 % [facility] RDW 12.7 9.0 - 14.5 % [facility] Platelet Count 169 140 - 400 TH/uL [facility] MPV 9.9 9.4 - 12.3 fL [facility] Nucleated RBCs 0 0 - 0 /100 [facility] Specimen Blood Performing Organization Address [facility] one Number [facility] [address] [place] [phone] LABORATORIES * GLUCOSE POC (12/11/2013 9:06 PM CDT) Only the most recent of 7 results within the time period is included. Glucose POC 109 (H) 70 - 100 mg/dL [facility] Specimen Blood Performing Organization Address [facility] one Number [address] [phone] LABORATORIES * ECHO TRANSTHORACIC (12/11/2013 2:36 PM CDT) Specimen Narrative Performed At ECHOCARDIOGRAM [facility] [place] [place] [facility] REPORT [facility] Name: NASH REDMAN Date: 12/11/2013 14:36 Chart #: [id number] : 1950 Location: [facility] Sono: [email or web address] Age: 63 Gender: M Referring: DREW ROWLAND m #: [id number] Fellow: Indication: Chest pain, CAD Procedure: [id number] Complete Echo 2D/Col orflow/Doppler BP: 97 / 62 HR: 70 Ht: 72 Wt: 136 BSA: 1.8 2D ECHO MEASUREMENTS LV Diastolic Diameter Bas 4.4 cm 3.6-5.4 IVS Diastolic Thickness 0.72 cm 0.6-1.1 LV Systolic Diameter Base 2.5 cm 2.3-4.0 LVPW Diastolic Thickness 0.8 cm 0.6-1.1 LA Systolic Diameter LX 3.6 cm 2.3-3.8 TRICUSPID VALVE DOPPLER RV Systolic Pressure 26.2 mmHg WALL SEGMENT ANALYSIS: ROUTINE LVSI : 1 %FM : 100 LAD : 1 LCX : 1 RCA : 1 FINDINGS LV Ejection Fraction: 60 Normal left ventricular systolic func tion, with an estimated ejection fraction of 60%. Normal wall thickness. Normal wall motion. Normal left ventricular dimensions. Normal right ventricular size and sys tolic function. Normal right and left atrial size. Mild diastolic dysfunction - normal L A pressure with mild abnormality in LV relaxation. Sclerotic aortic valve without regurg itation. Normal mitral valve with trivial regu rgitation. Normal pulmonic valve with trivial re gurgitation. Normal tricuspid valve with trivial r egurgitation. Estimated PA pressure = 26 mmHg. No pericardial effusion. IVC is responsive to inspiration rita cating normal RA pressure. Normal ascending aorta dimensions. No obvious intracardiac masses or thr ombi. CONCLUSIONS: 1. Normal left ventricular systolic function, with an estimated ejection fraction of 60%. 2. Normal right ventricular size an d systolic function. 3. No significant valvular abnormal ities. Gucci Rodriguez M.D. (Electronically Signed) Final Date: 11 December 2013 15:15 Procedure Note Interface, External Ris In - 12/11/2013 3:15 PM CDT ECHOCARDIOGRAM REPORT [facility] Name: NASH REDMAN Date: 12/11/2013 14:36 Chart #: [id number] : 1950 Location: [facility] Sono: [email or web address] Age: 63 Gender: M Referring: DREW ROWLAND Room #: [id number] Fellow: Indication: Chest pain, CAD Procedure: [id number] Complete Echo 2D/Colorflow/Doppler BP: 97 / 62 HR: 70 Ht: 72 Wt: 136 BSA: 1.8 2D ECHO MEASUREMENTS LV Diastolic Diameter Bas 4.4 cm 3.6-5.4 IVS Diastolic Thickness 0.72 cm 0.6-1.1 LV Systolic Diameter Base 2.5 cm 2.3-4.0 LVPW Diastolic Thickness 0.8 cm 0.6-1.1 LA Systolic Diameter LX 3.6 cm 2.3-3.8 TRICUSPID VALVE DOPPLER RV Systolic Pressure 26.2 mmHg WALL SEGMENT ANALYSIS: ROUTINE LVSI : 1 %FM : 100 LAD : 1 LCX : 1 RCA : 1 FINDINGS LV Ejection Fraction: 60 Normal left ventricular systolic function, with an estimated ejection fraction of 60%. Normal wall thickness. Normal wall motion. Normal left ventricular dimensions. Normal right ventricular size and systolic function. Normal right and left atrial size. Mild diastolic dysfunction - normal LA pressure with mild abnormality in LV relaxation. Sclerotic aortic valve without regurgitation. Normal mitral valve with trivial regurgitation. Normal pulmonic valve with trivial regurgitation. Normal tricuspid valve with trivial regurgitation. Estimated PA pressure = 26 mmHg. No pericardial effusion. IVC is responsive to inspiration indicating normal RA pressure. Normal ascending aorta dimensions. No obvious intracardiac masses or thrombi. CONCLUSIONS: 1. Normal left ventricular systolic function, with an estimated ejection fraction of 60%. 2. Normal right ventricular size and systolic function. 3. No significant valvular abnormalities. Gucci Rodriguez M.D. (Electronically Signed) Final Date: 11 December 2013 15:15 Performing Organization Address City/State/Zipcode Ph one Number [facility] [place] [place] RAD [address] [facility] [place] [address] * Invasive Cardiology Report (12/11/2013 11:08 AM CDT) Specimen Narrative Performed At [facility] , Complete Report Name:NASH REDMAN : 1950 Age: 63 years Gender: Male SSN: Study date: 12/11/2013 CPI number: [id number] CV Cath number: [id number] WELFARE PROJECT MANAGER: Moreno Zhang INDICATIONS: Angina/NH: atypical chest pain, CCS class I. PROCEDURES PERFORMED: -- Left coronary angiography. -- Right coronary angiography. PROCEDURE: The risks, benefits and alte rnatives of the procedure and conscious sedation were reviewed with the patient and informed consent was obtained. The patient was brought to the cardiac labor relations analyst and placed on the table. The planned access sites were prepped and d raped in the usual sterile fashion. -- Right femoral artery access. The a ccess site was infiltrated with local anesthetic. The vessel was accessed usi ng the modified Seldinger technique, a wire was threaded into the vessel, and a sheath was advanced over the wire into the vessel. -- Left coronary artery angiography. A JL4 catheter was advanced to the aorta and positioned in the vessel ostium und er fluoroscopic guidance. Angiography was performed in multiple projections u sing hand-injection of contrast. -- Right coronary artery angiography. A JR4 catheter was advanced to the aorta and positioned in the vessel ostium und er fluoroscopic guidance. Angiography was performed in multiple projections u sing hand-injection of contrast. PROCEDURAL DATA: No significant blood l oss. TIMING: Test started at 11:09. Test concluded at 11:21. RADIATION EXPOSURE: Fluoroscopy time: 2.1 min. HEMOSTASIS: The sheath was removed. Hem ostasis was successful using a sealant ( Angioseal). MEDICATIONS GIVEN: Fentanyl, 25 mcg, IV , at 11:10. Diazepam, 5 mg, IV, at 11:11. 2% Lidocaine, 10 ml subcutaneous ly, at 11:11. CONTRAST GIVEN: Visipaque 25 ml. CORONARY ANGIOGRAPHY: The coronary circ ulation is right dominant. Left main: Normal. Proximal LAD: There was a 0 % s tenosis at the site of a prior stent. There was IRENE grade 3 flow through the vessel (brisk flow). Mid LAD: There was a 0 % stenosis at the site of a prior s tent. There was IRENE grade 3 flow through the vessel (brisk flow). Circum flex: Normal. RCA: Normal. Authenticated by Arnie Maxwell M.D. Signed 12/11/2013 11:30:09 HEMODYNAMIC TABLES Pressures: NO PHASE Pressures: - HR: 87 Pressures: - Rhythm: Pressures: -- Aortic Pressure (S/D/M) : 101/67/95 Outputs: NO PHASE Outputs: -- CALCULATIONS: [age] Outputs: -- CALCULATIONS: Body Surfac e Area: 1.79 Outputs: -- CALCULATIONS: Height in c m: 180.00 Outputs: -- CALCULATIONS: Sex: Male Outputs: -- CALCULATIONS: Weight in k .00 Procedure Note Interface, External Ris In - 12/11/2013 11:30 AM CDT , Complete Report Name:NASH REDMAN : 1950 Age: 63 years Gender: Male SSN: Study date: 12/11/2013 CPI number: [id number] CV Cath number: [id number] WELFARE PROJECT MANAGER: Arnie Maxwell M.D. INDICATIONS: Angina/NH: atypical chest pain, CCS class I. PROCEDURES PERFORMED: -- Left coronary angiography. -- Right coronary angiography. PROCEDURE: The risks, benefits and alternatives of the procedure and conscious sedation were reviewed with the patient and informed consent was obtained. The patient was brought to the cardiac labor relations analyst and placed on the table. The planned access sites were prepped and draped in the usual sterile fashion. -- Right femoral artery access. The acc ess site was infiltrated with local anesthetic. The vessel was accessed using the modified Seldinger technique, a wire was threaded into the vessel, and a sheath was advanced over the wire into the vessel. -- Left coronary artery angiography. A JL4 catheter was advanced to the aorta and positioned in the vessel ostium under fluoroscopic guidance. Angiography was performed in multiple projections using hand-injection of contrast. -- Right coronary artery angiography. A JR4 catheter was advanced to the aorta and positioned in the vessel ostium under fluoroscopic guidance. Angiography was performed in multiple projections using hand-injection of contrast. PROCEDURAL DATA: No significant blood loss. TIMING: Test started at 11:09. Test concluded at 11:21. RADIATION EXPOSURE: Fluoroscopy time: 2.1 min. HEMOSTASIS: The sheath was removed. Hemostasis was successful using a sealant ( Angioseal). MEDICATIONS GIVEN: Fentanyl, 25 mcg, IV, at 11:10. Diazepam, 5 mg, IV, at 11:11. 2% Lidocaine, 10 ml subcutaneousl y, at 11:11. CONTRAST GIVEN: Visipaque 25 ml. CORONARY ANGIOGRAPHY: The coronary circulation is right dominant. Left main: Normal. Proximal LAD: There was a 0 % stenosis at the site of a prior stent. There was IRENE grade 3 flow through the vessel (brisk flow). Mid LAD: There was a 0 % stenosis at the site of a prior stent. There was IRENE grade 3 flow through the vessel (brisk flow). Circumflex: Normal. RCA: Normal. Authenticated by Arnie Maxwell M.D. Signed 12/11/2013 11:30:09 HEMODYNAMIC TABLES Pressures: NO PHASE Pressures: - HR: 87 Pressures: - Rhythm: Pressures: -- Aortic Pressure (S/D/M): 101/67/95 Outputs: NO PHASE Outputs: -- CALCULATIONS: [age] Outputs: -- CALCULATIONS: Body Surface Area: 1.79 Outputs: -- CALCULATIONS: Height in cm: 180.00 Outputs: -- CALCULATIONS: Sex: Male Outputs: -- CALCULATIONS: Weight in k.00 Performing Organization Address City/State/[place] Ph one Number [facility] * Heparin Anti Factor Xa, Unfractionated Heparin (12/11/2013 6:55 AM CDT) Only the most recent of 2 results within the time period is included. Unfractionated 0.29 (L)Comment: Therapeutic 0.30 - 0.70 IU/mL [facility] Heparin Anti range may vary based on REGIONAL Factor Xa Assay physician orders or order set. TEGAN COLECOOPER Specimen Blood Performing Organization Address [facility] one Number [address] [address] LABORATORIES * Troponin (12/11/2013 2:58 AM CDT) Only the most recent of 3 results within the time period is included. Pathologist [facility] Troponin <0.01 0.00 - 0.03 ng/mL [facility] Comment: REGIONAL Troponin Value LABORATORIES Interpretation 0.00 - 0.03 Healthy 0.04 - 0.12 Increased Cardiac Risk >0.12 Myocardial Infarction Troponin may not become elevated until 6 to 8 hours after onset of symptoms. Specimen Blood Performing Organization Address [facility] one Number [address] [id number] LABORATORIES * Hemoglobin A1C (12/11/2013 12:36 AM CDT) Pathologist [facility] Hemoglobin A1C 5.9 (H) 4.0 - 5.6 % [facility] Comment: REGIONAL Non-diabetic 4.0 - LABORATORIES 5.6 % Prediabetes 5.7 - 6.4 % Diabetes >= 6.5 % Specimen Blood Performing Organization Address [facility] one Number [address] [address] LABORATORIES * Thyroid Stimulating Hormone (12/11/2013 12:36 AM CDT) Pathologist [facility] Thyroid 1.30 0.47 - 4.68 uIU/mL [facility] Stimulating [facility] Hormone LABORATORIES Specimen Blood Performing Organization Address [facility] one Number [address] [phone] LABORATORIES * Basic Metabolic Panel (12/11/2013 12:36 AM CDT) Pathologist [facility] Sodium 142 133 - 147 MEQ/L [facility] Potassium 3.7 3.5 - 5.3 MEQ/L [facility] Chloride 100 96 - 112 MEQ/L [facility] Carbon Dioxide 29 20 - 32 MEQ/L [facility] Anion Gap 12 5 - 17 [facility] Calcium 9.1 8.4 - 10.5 mg/dL [facility] Glucose 116 (H) 70 - 100 mg/dL [facility] Blood Urea 12 7 - 26 mg/dL [facility] Creatinine 1.0 0.6 - 1.3 mg/dL [facility] eGFR Male AA [address] [facility] Comment: [facility] Chronic Kidney Disease less LABORATORIES than 60 mL/min/1.73 sq.m Kidney failure less than 15 mL/min/1.73 sq.m eGFR Male [address] [facility] Non-AA Comment: REGIONAL Chronic Kidney Disease less LABORATORIES than 60 mL/min/1.73 sq.m Kidney failure less than 15 mL/min/1.73 sq.m Specimen Blood Performing Organization Address City/State/Zipcode Ph one Number [address] [address] LABORATORIES * Electrocardiogram (ECG) (12/10/2013 6:53 PM CDT) Only the most recent of 2 results within the time period is included. Specimen Narrative Performed At Name [facility] RED[facility] [place] [place] RAD Date of 1950 Sex Maite Visit [id number] Facility [facility] Service Date 12/10/2013, 18:53:30 67 132 84 [phone] 55 55 56 - ABNORMAL ECG - SINUS RHYTHM normal P axis, V-rate 50-99 MULTIPLE ATRIAL PREMATURE COMPLEXES SV complexes w/ short R-R intvls PROBABLE LEFT ATRIAL ABNORMALITY P \\T\\gt;50mS, \\T\\lt;-0.10mV V1 FINAL REPORT Procedure Note Interface, External Ris In - 12/15/2013 11:48 AM CDT Name NAS[facility] REDMAN Date of 1950 aJmey Arora Visit [id number] Facility [facility] Service Date 12/10/2013, 18:53:30 67 132 84 [phone] 58 55 55 56 - ABNORMAL ECG - SINUS RHYTHM normal P axis, V-rate 50-99 MULTIPLE ATRIAL PREMATURE COMPLEXES SV complexes w/ short R-R intvls PROBABLE LEFT ATRIAL ABNORMALITY P \\T\\gt;50mS, \\T\\lt;-0.10mV V1 FINAL REPORT Performing Organization Address [facility] one Number [facility] [place] [place] RAD [address] [facility] [place] [address] * XR Chest single view frontal (12/10/2013 5:57 PM CDT) Specimen Impressions Performed At IMPRESSION: No acute cardiopulmonary process. [facility] READING SITE: [facility] Narrative Performed At Patient: NASH REDMAN Sex#: M # 1950 Stew#: [id number] Location: Procedure Requested: [id number] DX CHEST S SARAY VIEW Reason for Exam: CHEST PAIN Exam Ordered: 12/10/2013 17 47 Exam Date/Time: 12/10/2013 175 6 Check-in Date/Time: 12/10/2013 1757 DX CHEST SINGLE VIEW INDICATION: CHEST PAIN. COMPARISON STUDY: None. FINDINGS: Life Support Devices: None. Lungs: Lungs are clear. Pleura: No pleural effusion or pneumoth orax. Heart and Mediastinum: Heart and medias tinum are normal in size. Bones: Regional skeleton demonstrates n o gross abnormality. Procedure Note [facility], Rad Results In - 12/10/2013 6:13 PM CDT Patient: NASH REDMAN Sex#: M # 1950 Stew#: [id number] Location: Procedure Requested: [id number] DX CHEST SINGLE VIEW Reason for Exam: CHEST PAIN Exam Ordered: 12/10/2013 1747 Exam Date/Time: 12/10/2013 1756 Check-in Date/Time: 12/10/2013 1757 DX CHEST SINGLE VIEW INDICATION: CHEST PAIN. COMPARISON STUDY: None. FINDINGS: Life Support Devices: None. Lungs: Lungs are clear. Pleura: No pleural effusion or pneumothorax. Heart and Mediastinum: Heart and mediastinum are normal in size. Bones: Regional skeleton demonstrates no gross abnormality. IMPRESSION: No acute cardiopulmonary process. READING SITE: [facility] Performing Organization Address [facility] one Number SAN[facility] * Comprehensive Metabolic Panel (12/10/2013 5:53 PM CDT) Sodium 141 133 - 147 MEQ/L [facility] Potassium 4.2 3.5 - 5.3 MEQ/L [facility] Chloride 101 96 - 112 MEQ/L [facility] Carbon Dioxide 29 20 - 32 MEQ/L [facility] Anion Gap 11 5 - 17 [facility] Calcium 9.1 8.4 - 10.5 mg/dL [facility] Glucose 101 (H) 70 - 100 mg/dL [facility] Protein Total 7.8 6.0 - 8.2 g/dL [facility] Serum [facility] LABORATORIES Albumin 4.3 3.5 - 5.0 g/dL [facility] Alkaline 85 42 - 140 IU/L [facility] Phosphatase [facility] LAB[facility] Alanine 46 13 - 69 IU/L [facility] Aminotransferas [facility] e LABORATORIES Aspartate 38 15 - 46 IU/L [facility] Aminotransferas [facility] e LABORATORIES Bilirubin Total 2.1 (H) 0.2 - 1.3 mg/dL [facility] Blood Urea 12 7 - 26 mg/dL [facility] Nitrogen [facility] LAB[facility]ATORIES Creatinine 1.0 0.6 - 1.3 mg/dL [facility] eGFR Male AA [address] [facility] Comment: REGIONAL Chronic Kidney Disease less LABORATORIES than 60 mL/min/1.73 sq.m Kidney failure less than 15 mL/min/1.73 sq.m eGFR Male [address] [facility] Non-AA Comment: REGIONAL Chronic Kidney Disease less LABORATORIES than 60 mL/min/1.73 sq.m Kidney failure less than 15 mL/min/1.73 sq.m Specimen Blood Performing Organization Address [facility] one Number [address] [address] LABORATORIES * Prothrombin Time/INR (12/10/2013 5:53 PM CDT) Protime 13.0 11.7 - 14.3 sec [facility] INR 1.0 0.9 - 1.1 [facility] Specimen Blood Performing Organization Address [facility] Ph one Number [address] [place] [address] LABORATORIES * APTT (12/10/2013 5:53 PM CDT) APTT 26 22 - 34 sec [facility] Specimen Blood Performing Organization Address City/State/Zipcode Ph one Number [facility] [address] [place] [phone] LABORATORIES * CBC and Diff (manual diff if necessary) (12/10/2013 5:53 PM CDT) WBC 6.51 4.00 - 11.00 TH/uL [facility] LABORATORIES RBC 4.87 4.31 - 5.84 MIL/uL [facility] Hemoglobin 14.3 13.0 - 17.0 g/dL [facility] Hematocrit 41 40 - 50 % [facility] MCV 85 80 - 99 fL [facility] MCH 29 27 - 34 pg [facility] MCHC 35 32 - 36 % [facility] RDW 12.4 9.0 - 14.5 % [facility] Platelet Count 216 140 - 400 TH/uL [facility] MPV 9.4 9.4 - 12.3 fL [facility] Nucleated RBCs 0 0 - 0 /100 [facility] % Neutrophils 56 45 - 78 % [facility] %Lymphocytes 28 15 - 47 % [facility] %Monocytes 10 0 - 12 % [facility] %Eosinophils 6 0 - 7 % [facility] %Basophils 1 0 - 2 % [facility] % Imm Grans 0 0 - 1 % [facility] # Granulocytes 3.63 1.70 - 6.80 TH/uL [facility] # Lymphocytes 1.82 1.00 - 3.30 TH/uL [facility] LABORATORIES # Monocytes 0.65 0.20 - 0.90 TH/uL [facility] LABORATORIES # Eosinophils 0.38 0.00 - 0.40 TH/uL [facility] LABORATORIES # Basophils 0.03 0.00 - 0.10 TH/uL [facility] LABORATORIES Specimen Blood Performing Organization Address City/State/Zipcode Ph one Number [address] [address] LABORATORIES documented in this encounter Visit Diagnoses Not on filedocumented in this encounter
--- OUTSIDE RECORDS SUMMARY | 2020-02-10 08:01 | XMS REPORT | Encounter Summary ---
Author Author [facility] Organization [facility] Address Unknown Phone Unavailable Care Team Providers Care Bar Catcher Name Role Phone Dedra Mathews PCP Encounter Details Care Team Description Date Type Department Davey Cuello MD [address] [place] [address] [phone] 12/18/2013 [facility] - Hist [facility] C Visit Social History Date Tobacco Use Types Packs/Day Years Used Never Assessed Sex Assigned at Date Recorded Not on file Industry Job Start Date Occupation Not on file Not on file Not on file Travel End Travel History Travel Start No recent travel history available. documented as of this encounter Progress Notes * Dvaey Cuello MD - 12/18/2013 9:17 AM CDT Release of Information RE: NASH REDMAN : 1950 [facility] is requesting protected health informat ion from: DEDRA MATHEWS MD Purpose: Continuation of care Please release records to the following [facility] Office: [place] Office [address] [place] [id number] Fax to : Attention : Chart Vascular TechnologistArchie (phone) Please send the following: Most recent office visit letter, EKG, labs, including cholesterol, any cardiac t esting and/ or procedures, and most recent medication list. Thank you for your prompt attention to our request. This facsimile contains confidential information which may also be legally privi leged and which is intended only for the use of the individual or entity named a nito. If the reader of a facsimile is not the intended recipient or the employe e or agent responsible for delivering it to the intended recipient, you are here by on notice that you are in possession of confidential and privileged informati on. Any dissemination, distribution or copying of this facsimile is strictly pr ohibited. If you have received this facsimile in error, please immediately noti fy the sender by telephone and return the original facsimile to the sender at th e above address via the U.[employer]. Postal Service. documented in this encounter Plan of Treatment Not on filedocumented as of this encounter Visit Diagnoses Not on filedocumented in this encounter
--- OUTSIDE RECORDS SUMMARY | 2020-02-10 08:01 | XMS REPORT | Encounter Summary ---
Author Author [facility] Organization [facility] Address Unknown Phone Unavailable Care Team Providers Care Chha Name Role Phone Vonnie Mathews PCP Encounter Details Care Team Description Date Type Department [facility] Provider, MD Lv 12/11/2013 [facility] Social History Date Tobacco Use Types Packs/Day [...] Procedure Name Priority Date/Time Associated Diag nosis ECHO EJECTION FRACTION Routine 12/11/2013 HISTORICAL 2:36 PM CDT documented in this encounter Results * Echo Ejection Fraction historical (12/11/2013 2:36 PM CDT) Ejection 60Comment: Echo PROSOLV Fraction Specimen Performing Organization Address City/State/Zipcode Ph one Number PROSOLV documented in this encounter Visit Diagnoses Not on filedocumented in this encounter
--- OUTSIDE RECORDS SUMMARY | 2020-02-10 08:01 | XMS REPORT | Encounter Summary ---
Author Author [facility] Organization [facility] Address Unknown Phone Unavailable Care Team Providers Care Precast Worker Name Role Phone Vonnie Mathews PCP Encounter Details Care Team Description Date Type Department Drew Núñ[place] [address] [facility] [address] [place] [address] 12/12/2013 [facility] [...]
--- OUTSIDE RECORDS SUMMARY | 2020-02-10 08:01 | XMS REPORT | Clinical Summary ---
Author Author [facility] Organization [facility] Address Unknown Phone Unavailable Care Team Providers Care Supervisor [employer] Name Role Phone Vonnie Mathews PCP Allergies No Known Allergies Medications End Date Status Medication Sig Dispensed Refills Start Date Active oxyCODONE-acetaminophen take 1 tablet 10 0 (PERCOCET) 5-325 mg per by oral route 4 tablet every 6 hours as needed Active Problems Not on file Social History Date Tobacco Use Types Packs/Day [...] 12/12/2013 12:00 AM CDT Body Mass Index Plan of Treatment Not on file Results Not on filefrom Last 3 Months
--- OUTSIDE RECORDS SUMMARY | 2020-02-10 08:01 | XMS REPORT | Encounter Summary ---
Author Author [facility] Organization [facility] Address Unknown Phone Unavailable Care Team Providers Care Digital Operations Analyst Name Role Phone Vonnie Mathews PCP Encounter Details Care Team Description Date Type Department 12/11/2013 [facility] [...]
--- OUTSIDE RECORDS SUMMARY | 2020-02-10 08:01 | XMS REPORT | Encounter Summary ---
Author Author [facility] Organization [facility] Address Unknown Phone Unavailable Care Team Providers Care Cardiac Technologist Name Role Phone Vonnie Mathews PCP Encounter Details Care Team Description Date Type Department 12/10/2013 [facility] [...]
--- OUTSIDE RECORDS SUMMARY | 2020-02-10 08:01 | XMS REPORT | Encounter Summary ---
Author Author [facility] Organization [facility] Address Unknown Phone Unavailable Care Team Providers Care Sports Doctor Name Role Phone Vonnie Mathews PCP Encounter Details Care Team Description Date [place] [address] [facility] [address] [place] [address] 12/11/2013 [facility] [...]
--- OUTSIDE RECORDS SUMMARY | 2020-02-10 08:01 | XMS REPORT | Encounter Summary ---
Author Author [facility] Organization [facility] Address Unknown Phone Unavailable Care Team Providers Care Pathology Assistant Name Role Phone Vonnie Mathews PCP Encounter Details Care Team Description Date [place] [address] [facility] [address] [place] [address] 12/10/2013 [facility] [...]
--- OUTSIDE RECORDS SUMMARY | 2020-02-10 08:01 | XMS REPORT | Encounter Summary ---
Author Author [facility] Organization [facility] Address Unknown Phone Unavailable Care Team Providers Care Waiter Name Role Phone Vonnie Mathews PCP Encounter Details Care Team Description Date Type Department Iván Adams MD [address] [facility] [address] [place] [address] [phone] 12/11/2013 [facility] [...]
--- OUTSIDE RECORDS SUMMARY | 2020-02-10 08:01 | XMS REPORT | Encounter Summary ---
Author Author [facility] Organization [facility] Address Unknown Phone Unavailable Care Team Providers Care Bilingual Interpreter Name Role Phone Vonnie Mathews PCP Encounter Details Care Team Description Date Type Department Davey Cuello MD [address] [facility] [address] [place] [address] [phone] 12/29/2013 [facility] [...]
--- OUTSIDE RECORDS SUMMARY | 2020-02-10 08:05 | XMS REPORT | CCD ---
Author Author Nash Mathews D.O. Organization [facility] Address [address] [place] [address] Phone Care Team Providers Care House Supervisor Name Role Phone Vonnie Mathews D.O., PP Unavailable CCM Unavailable Summary Purpose Interface Exchange Insurance Providers Payer name Policy type / Coverage type Covered constitution party ID Effective Begin Date Effective End Date [employer] MEDICARE Medicare Part B [id number] 2019 Unknown Family History Family History data not found Social History Social History Element Codes Description Effective Dates Marital status Unknown 10/24/[address]: 612243239 Nonsmoker 03/29/2011 Allergies, Adverse Reactions, Alerts Substance Reaction Codes Entered Date Inactivated Date Status _ Unknown 11/20/2017 No Inactive Date Active _ reaction, Unknown 11/23/2016 No Inactive Date Active Problems Condition Codes Effective Dates Condition Status Essential tremor ICD-9: 333.1 ICD-10: G25.0 12/24/2019 Active Encounter for screening for malignant neoplasm of pros fung ICD-9: V76.44 ICD-10: Z12.5 02/26/2017 Active Essential (primary) hypertension ICD-9: 401.9 ICD-10: I10 02/26/2017 Active Mixed hyperlipidemia ICD-9: 272.4 ICD-10: E78.2 07/19/2012 Active Encounter for therapeutic drug level monitoring ICD-9: V58.83 ICD-10: Z51.81 04/25/2018 Active Hemorrhage of anus and rectum ICD-9: 569.3 ICD-10: K62.5 05/26/2019 Active Noninfective gastroenteritis and colitis, unspecified ICD-9: 558.9 ICD-10: K52.9 05/26/2019 Active Other forms of dyspnea ICD-9: 786.09 ICD-10: R06.09 11/06/2017 Active Other intervertebral disc degeneration, lumbar region ICD-9: 722.52 ICD-10: M51.36 11/23/2016 Active Other symptoms and signs involving the musculoskeletal system ICD-9: 729.89 ICD-10: R29.898 02/18/2019 Active Other allergic rhinitis ICD-9: 477.8 ICD-10: J30.89 01/13/2019 Active Benign prostatic hyperplasia without lower urinary tra ct symptoms ICD-9: 600.00 ICD-10: N40.0 09/04/2018 Active Encounter for general adult medical examination with a bnormal findings ICD-9: V70.0 ICD-10: Z00.01 04/04/2015 Active Idiopathic urticaria ICD-9: 708.1 ICD-10: L50.1 11/06/2017 Active Impacted cerumen, right ear ICD-9: 380.4 ICD-10: H61.21 09/03/2018 Active Otorrhea, left ear ICD-9: 388.60 ICD-10: H92.12 09/03/2018 Active Primary insomnia ICD-9: 780.52 ICD-10: F51.01 08/26/2018 Active Pelvic and perineal pain ICD-9: 625.9 ICD-10: R10.2 05/15/2018 Active Acute sinusitis, unspecified ICD-9: 461.9 ICD-10: J01.90 04/25/2018 Active Dyspnea, unspecified ICD-9: 786.09 ICD-10: R06.00 09/03/2017 Active Raynaud's syndrome without gangrene ICD-9: 443.0 ICD-10: I73.00 04/25/2018 Active Other urticaria ICD-9: 708.8 ICD-10: L50.8 11/06/2017 Active Abnormal weight loss ICD-9: 783.21 ICD-10: R63.4 08/21/2017 Active Atherosclerotic heart disease of [place] coronary arter y without angina pectoris ICD-9: 414.00 ICD-10: I25.10 08/21/2017 Active Anemia, unspecified ICD-9: 285.9 ICD-10: D64.9 07/31/2017 Active FLU VACCINE ICD-9: V04.81 ICD-10: Z23 06/27/2016 Active Other fatigue ICD-9: 780.79 ICD-10: R53.83 02/26/2017 Active Supraventricular tachycardia ICD-9: 785.0 ICD-10: I47.1 02/26/2017 Active Open bite of right hand, initial encounter ICD-9: 882. 0 ICD-10: S61.451A 05/22/2016 Active Routine medical exam ICD-9: V70.0 04/04/2015 Active TACHYCARDIA ICD-9: 785.0 04/05/2015 Active CAD ICD-9: 414.00 04/01/2015 Active HYPERLIPIDEMIA NEC/NOS ICD-9: 272.4 07/19/2012 Active LUMB/LUMBOSAC DISC DEGEN ICD-9: 722.52 04/01/2015 Active CHEST PAIN NOS ICD-9: 786.50 01/13/2014 Active GERD ICD-9: 530.81 01/13/2014 Active HYPERTENSION ICD-9: 401.9 01/13/2014 Active PAIN IN THORACIC SPINE ICD-9: 724.1 01/13/2014 Active PROSTATITIS ICD-9: 601.9 12/20/2011 Active Hypertension Unknown 10/24/2011 Active TREMOR NEC ICD-9: 333.1 10/24/2011 Active Cardiomyopathy ICD-9: 425.4 02/20/2011 Active _ Unknown 01/12/2010 Active Gastroesophageal reflux disease Unknown 01/12/2010 Active Hyperlipidemia Unknown 01/12/2010 Active Lumbar (intervertebral) disk disorders Unknown 0 Active Osteoarthritis Unknown 01/12/2010 Active sinusitis Unknown 01/12/2010 Active INSOMNIA NOS ICD-9: 780.52 01/12/2010 Active PAIN, LOWER BACK ICD-9: 724.2 01/12/2010 Active Medications Medication Codes Instructions Start Date Stop Date Status Fill Instructions Lyrica 75 mg capsule RxNorm: 923438 TAKE 1 CAPSULE BY M OUTH ONCE DAILY EVERY NIGHT AT BEDTIME 1 Capsule(s) Oral QPM 02/04/2020 05/03/2020 Active clonazepam 1 mg tablet RxNorm: 125731 TAKE 1 TABLET BY MOUTH EVERY MORNING Tablet(s) Oral 01/16/2020 02/14/2020 Active trazodone 50 mg tablet RxNorm: 646058 1-2 Tablet(s) Ora l QPM as needed for sleep 01/14/2020 01/13/2020 Inactive trazodone 50 mg tablet RxNorm: 885638 1-2 Tablet(s) Ora l QPM as needed for sleep 01/14/2020 01/14/2020 Inactive ProAir HFA 90 mcg/actuation aerosol inhaler RxNorm: 838266 2 Puff(s) Inhalation four times a day as needed 12/25/2019 02/13/2020 Active Pat ient requests 90 days supply metoprolol tartrate 25 mg tablet RxNorm: 622747 / Tab let(s) Oral two times a day 12/25/2019 06/22/2020 Active pravastatin 20 mg tablet RxNorm: 275542 1 Tablet(s) Oral QD 020 06/22/2020 Active Lyrica 75 mg capsule RxNorm: 140015 1 Capsule(s) Oral every nig ht at bedtime 12/25/2019 02/03/2020 Inactive Zyrtec 10 mg capsule RxNorm: 4202909 1 Capsule(s) Oral QD 0 No Stop Date Active ProAir HFA 90 mcg/actuation aerosol inhaler RxNorm: 849601 2 Puff(s) Inhalation four times a day as needed 12/24/2019 12/23/2019 Inactive ProAir HFA 90 mcg/actuation aerosol inhaler RxNorm: 068125 INHALE 2 PUFFS BY MOUTH FOUR TIMES DAILY NEEDED 12/24/2019 12/24/2019 Inactive Patient requests 90 days supply clonazepam 1 mg tablet RxNorm: 406909 TAKE 1 TABLET BY MOUTH EV SUSAN MORNING 12/19/2019 01/15/2020 Inactive clonazepam 1 mg tablet RxNorm: 765774 TAKE 1 TABLET BY MOUTH EV SUSAN MORNING 11/17/2019 12/16/2019 Inactive Tamiflu 75 mg capsule RxNorm: 445654 1 Capsule(s) Oral QD 11/03/2019 11/12/2019 Inactive Tamiflu 75 mg capsule RxNorm: 448399 1 Capsule(s) Oral QD 11/03/2019 11/02/2019 Inactive clonazepam 1 mg tablet RxNorm: 168178 TAKE 1 TABLET BY MOUTH EV SUSAN MORNING 10/16/2019 11/13/2019 Inactive pravastatin 20 mg tablet RxNorm: 120483 1 Tablet(s) Oral QD 020 12/24/2019 Inactive Singulair 10 mg tablet RxNorm: 712428 TAKE 1 TABLET BY MOUTH EV SUSAN DAY 10/10/2019 12/24/2019 Inactive Lyrica 75 mg capsule RxNorm: 343882 1 Capsule(s) Oral every nig ht at bedtime 10/09/2019 12/24/2019 Inactive clonazepam 1 mg tablet RxNorm: 136331 TAKE 1 TABLET BY MOUTH EV SUSAN AM 09/23/2019 10/15/2019 Inactive clonazepam 1 mg tablet RxNorm: 202622 TAKE 1 TABLET BY MOUTH EV SUSAN AM 08/21/2019 09/22/2019 Inactive Singulair 10 mg tablet RxNorm: 965957 TABLET(S) 1 TABLET(S) PO QD 1 10/09/2019 Inactive Flagyl 500 mg tablet RxNorm: 594690 1 Tablet(s) PO TID 05/26/2019 Inactive clonazepam 1 mg tablet RxNorm: 477472 TAKE 1 TABLET BY MOUTH EV SUSAN MORNING 05/23/2019 06/21/2019 Inactive pravastatin 20 mg tablet RxNorm: 931857 1 Tablet(s) PO QD 04/14/2019 10/09/2019 Inactive Needs updated fasting labs Singulair 10 mg tablet RxNorm: 808207 Tablet(s) 1 TABLET(S) PO QD 0 04/14/2019 07/12/2019 Inactive clonazepam 1 mg tablet RxNorm: 972094 1 Tablet(s) PO QAM 02/21/2019 0 05/23/2019 Inactive Bevespi Aerosphere 9 mcg-4.8 mcg HFA aerosol inhaler RxNorm: 7377801 2 Puff(s) INH BID 02/19/2019 12/23/2019 Inactive ProAir HFA 90 mcg/actuation aerosol inhaler RxNorm: 472376 2 Puff(s) INH Q4H as needed 02/19/2019 09/24/2019 Inactive metoprolol tartrate 25 mg tablet RxNorm: 184036 1/2 Tablet(s) PO BI D 02/18/2019 05/18/2019 Inactive pravastatin 20 mg tablet RxNorm: 976407 1 Tablet(s) PO QD Needs updated fasting labs 01/13/2019 04/14/2019 Inactive Needs updated fa sting labs Singulair 10 mg tablet RxNorm: 760313 Tablet(s) 1 TABLET(S) PO QD 0 01/13/2019 04/12/2019 Inactive Plavix 75 mg tablet RxNorm: 568563 Tablet(s) 1 TABLET(S) PO QD 04/201906/20/2019 Inactive [SAVINGS FOR NON-COVERED SHANDA GS -- BIN:965579, PCN: ASPROD1, Group: XXXXX, ID# [id number], Questions: . THIS IS NOT INSURANCE.] Singulair 10 mg tablet RxNorm: 811179 1 TABLET(S) PO QD 10/29/2018 Inactive primidone 50 mg tablet RxNorm: 952501 2 TABLET(S) PO BI D TAKE 2 TABLETS BY MOUTH EVERY NIGHT AT BEDTIME 10/07/2018 01/12/2019 Inactive Patient requests 90 days supply pravastatin 20 mg tablet RxNorm: 937369 1 TABLET(S) PO QD 09/23/2018 01/12/2019 Inactive clonazepam 1 mg tablet RxNorm: 680500 1 Tablet(s) PO QAM 09/19/2018 0 12/17/2018 Inactive primidone 50 mg tablet RxNorm: 590636 TABLET(S) TAKE 2 TABLETS BY MOUTH EVERY NIGHT AT BEDTIME 09/18/2018 01/12/2019 Inactive ciprofloxacin 0.2 % ear drops in a dropperette RxNorm: 72124 6 2 Drop(s) left otic (ear) BID 09/03/2018 09/09/2018 Inactive primidone 50 mg tablet RxNorm: 045553 2 Tablet(s) PO BI D TAKE 2 TABLETS BY MOUTH EVERY NIGHT AT BEDTIME 08/26/2018 10/06/2018 Inactive Ambien 5 mg tablet RxNorm: 591230 TAKE 1 TABLET BY MOUTH EVERY NIGHT AT BEDTIME 08/05/2018 09/03/2018 Inactive Singulair 10 mg tablet RxNorm: 799252 1 TABLET(S) PO QD 07/23/2018 Inactive clonazepam 1 mg tablet RxNorm: 249758 TAKE 1 TABLET BY MOUTH EV SUSAN MORNING 07/23/2018 08/21/2018 Inactive Plavix 75 mg tablet RxNorm: 563631 1 TABLET(S) PO QD 07/04/201812/22 Inactive [SAVINGS FOR NON-COVERED DRUGS -- BIN:00 358, PCN: ASPROD1, Group: XXXXX, ID# [id number], Questions: . THIS IS NOT INSURANCE.] clonazepam 1 mg tablet RxNorm: 050730 TAKE 1 TABLET BY MOUTH EV SUSAN MORNING 06/25/2018 07/23/2018 Inactive clonazepam 1 mg tablet RxNorm: 663895 TAKE 1 TABLET BY MOUTH EV SUSAN MORNING 05/23/2018 06/21/2018 Inactive primidone 50 mg tablet RxNorm: 186237 Tablet(s) TAKE 2 TABLETS BY MOUTH EVERY NIGHT AT BEDTIME 05/16/2018 08/25/2018 Inactive oxycodone-acetaminophen 7.5 mg-325 mg tablet RxNorm: 2769465 1-2 Tablet(s) PO TID as needed 04/25/2018 05/24/2018 Inactive Singulair 10 mg tablet RxNorm: 116572 1 Tablet(s) PO QD 04/25/2018 Inactive Medrol (Jose) 4 mg tablets in a dose pack RxNorm: 045293 Tablet(s) PO take as directed 04/25/2018 09/02/2018 Inactive clonazepam 1 mg tablet RxNorm: 395802 TAKE 1 TABLET BY MOUTH EV SUSAN MORNING 04/24/2018 05/22/2018 Inactive Plavix 75 mg tablet RxNorm: 712031 1 TABLET(S) PO QD 04/04/201807/02 Inactive [SAVINGS FOR NON-COVERED DRUGS -- BIN:00 3585, PCN: ASPROD1, Group: XXXXX, ID# [id number], Questions: . THIS IS NOT INSURANCE.] pravastatin 20 mg tablet RxNorm: 084372 1 Tablet(s) PO QD 03/21/2018 09/16/2018 Inactive ProAir HFA 90 mcg/actuation aerosol inhaler RxNorm: 360492 2 Puff(s) INH Q4H as needed 03/18/2018 03/17/2018 Inactive tamsulosin 0.4 mg capsule RxNorm: 941123 1 CAPSULE(S) PO QD 018 01/12/2019 Inactive clonazepam 1 mg tablet RxNorm: 860589 1 Tablet(s) PO QAM 02/25/2018 0 04/25/2018 Inactive tamsulosin 0.4 mg capsule RxNorm: 308911 1 Capsule(s) PO QD 018 03/13/2018 Inactive tamsulosin 0.4 mg capsule RxNorm: 799331 1 Capsule(s) PO QD 018 02/03/2018 Inactive tamsulosin 0.4 mg capsule RxNorm: 084652 1 Capsule(s) PO QD 018 02/12/2018 Inactive Ambien 5 mg tablet RxNorm: 885613 Tablet(s) TAKE 1 TAB LET BY MOUTH EVERY NIGHT AT BEDTIME 01/24/2018 08/05/2018 Inactive primidone 50 mg tablet RxNorm: 808721 Tablet(s) TAKE 2 TABLETS BY MOUTH EVERY NIGHT AT BEDTIME 01/18/2018 05/16/2018 Inactive cyclobenzaprine 10 mg tablet RxNorm: 033598 1 Tablet(s) PO TID as needed for muscle spasm 01/11/2018 02/09/2018 Inactive [SAVINGS FOR NON -COVERED DRUGS -- BIN:097011, PCN: ASPROD1, Group: XXXXX, ID# [id number], Questions: . THIS IS NOT INSURANCE.] clonazepam 1 mg tablet RxNorm: 888147 1 Tablet(s) PO QAM 12/24/2017 0 02/21/2018 Inactive prednisone 20 mg tablet RxNorm: 029567 1 Tablet(s) PO QD 11/06/2017 0 11/10/2017 Inactive EpiPen 2-Jose 0.3 mg/0.3 mL injection, auto-injector RxNorm: 483475 1 Unit Dose IM as needed 11/06/2017 09/24/2019 Inactive ProAir HFA 90 mcg/actuation aerosol inhaler RxNorm: 718589 2 Puff(s) INH Q4H as needed 10/30/2017 03/17/2018 Inactive primidone 50 mg tablet RxNorm: 473138 TAKE 2 TABLETS BY MOUTH EVERY NIGHT AT BEDTIME 10/15/2017 01/17/2018 Inactive Plavix 75 mg tablet RxNorm: 178503 1 Tablet(s) PO QD 10/01/201703/29 Inactive [SAVINGS FOR NON-COVERED DRUGS -- BIN:00 3585, PCN: ASPROD1, Group: XXXXX, ID# [id number], Questions: . THIS IS NOT INSURANCE.] clonazepam 1 mg tablet RxNorm: 190908 1 Tablet(s) PO QAM 09/19/2017 0 12/16/2017 Inactive primidone 50 mg tablet RxNorm: 288624 2 Tablet(s) PO QHS 08/29/2017 0 01/18/2018 Inactive oxycodone-acetaminophen 7.5 mg-325 mg tablet RxNorm: 2507822 1-2 Tablet(s) PO TID as needed 08/22/2017 09/19/2017 Inactive pravastatin 20 mg tablet RxNorm: 990152 1 Tablet(s) PO QD 08/21/2017 03/21/2018 Inactive carvedilol 3.125 mg tablet RxNorm: 972666 1 Tablet(s) P O BID to replace 6.25mg dose 08/21/2017 09/02/2017 Inactive primidone 50 mg tablet RxNorm: 227547 TAKE 2 TABLETS BY MOUTH EVERY NIGHT AT BEDTIME 06/18/2017 08/28/2017 Inactive clonazepam 1 mg tablet RxNorm: 393511 1 Tablet(s) PO QAM 06/04/2017 1 11/02/2016 Inactive Plavix 75 mg tablet RxNorm: 037093 1 Tablet(s) PO QD 04/10/201710/01 Inactive [SAVINGS FOR NON-COVERED DRUGS -- BIN:00 3585, PCN: ASPROD1, Group: XXXXX, ID# [id number], Questions: . THIS IS NOT INSURANCE.] pravastatin 20 mg tablet RxNorm: 405903 1 Tablet(s) PO QD 02/26/2017 08/24/2017 Inactive carvedilol 3.125 mg tablet RxNorm: 925848 1 Tablet(s) P O BID to replace 6.25mg dose 02/26/2017 08/21/2017 Inactive Ultram 50 mg tablet RxNorm: 363448 TAKE 1 TO 2 TABLETS BY MOUTH THREE TIMES DAILY NEEDED FOR PAIN 02/26/2017 03/07/2017 Inactive pravastatin 20 mg tablet RxNorm: 794551 1 Tablet(s) PO QD 02/26/2017 08/21/2017 Inactive carvedilol 3.125 mg tablet RxNorm: 345197 1 Tablet(s) P O BID to replace 6.25mg dose 02/26/2017 08/20/2017 Inactive clonazepam 0.5 mg tablet RxNorm: 015027 1 Tablet(s) PO QAM 02/14/20 17 02/13/2017 Inactive primidone 50 mg tablet RxNorm: 234382 1 Tablet(s) PO QHS 02/13/2017 0 05/01/2017 Inactive clonazepam 1 mg tablet RxNorm: 217694 1 Tablet(s) PO QAM 02/13/2017 0 05/13/2017 Inactive primidone 50 mg tablet RxNorm: 750461 1/2 Tablet(s) PO QD for 7 days then increase to 1 tablet at bedtime 01/09/2017 02/12/2017 Inactive pravastatin 20 mg tablet RxNorm: 533832 Tablet(s) 1 TABLET(S) PO QD 11/29/2016 02/25/2017 Inactive clonazepam 1 mg tablet RxNorm: 067406 1 Tablet(s) PO BID replac es 0.5mg dose 11/23/2016 01/08/2017 Inactive pravastatin 20 mg tablet RxNorm: 005342 1 TABLET(S) PO QD 11/17/2016 11/28/2016 Inactive Ambien 5 mg tablet RxNorm: 671081 TAKE 1 TABLET BY MOUTH EVERY NIGHT AT BEDTIME 11/17/2016 12/14/2016 Inactive clonazepam 0.5 mg tablet RxNorm: 860646 TAKE 1 TABLET BY MOUTH TWICE DAILY 11/17/2016 11/22/2016 Inactive Plavix 75 mg tablet RxNorm: 878638 1 Tablet(s) PO QD 11/06/201604/09 Inactive [SAVINGS FOR NON-COVERED DRUGS -- BIN:00 3585, PCN: ASPROD1, Group: XXXXX, ID# [id number], Questions: . THIS IS NOT INSURANCE.] Plavix 75 mg tablet RxNorm: 053746 1 Tablet(s) PO QD 08/28/201611/05 Inactive [SAVINGS FOR NON-COVERED DRUGS -- BIN:00 3585, PCN: ASPROD1, Group: XXXXX, ID# [id number], Questions: . THIS IS NOT INSURANCE.] Lidoderm 5 % topical patch RxNorm: 4654538 Application T OP 2 patches for 12hrs then off for 12hrs 08/28/2016 08/27/2016 Inactive clonazepam 0.5 mg tablet RxNorm: 579248 1 Tablet(s) PO BID 08/07/20 16 11/22/2016 Inactive pravastatin 20 mg tablet RxNorm: 358662 1 Tablet(s) PO QD 08/07/2016 11/04/2016 Inactive cyclobenzaprine 10 mg tablet RxNorm: 585545 1 Tablet(s) PO TID as needed for muscle spasm 08/07/2016 09/05/2016 Inactive [SAVINGS FOR NON -COVERED DRUGS -- BIN:414023, PCN: ASPROD1, Group: XXXXX, ID# [id number], Questions: . THIS IS NOT INSURANCE.] Plavix 75 mg tablet RxNorm: 191492 1 Tablet(s) PO QD 08/07/201608/27 Inactive [SAVINGS FOR NON-COVERED DRUGS -- BIN: 3585, PCN: ASPROD1, Group: XXXXX, ID# [id number], Questions: . THIS IS NOT INSURANCE.] carvedilol 3.125 mg tablet RxNorm: 748400 1 Tablet(s) P O BID to replace 6.25mg dose 08/07/2016 02/02/2017 Inactive clonazepam 0.5 mg tablet RxNorm: 148518 1 Tablet(s) PO BID 07/04/20 16 08/07/2016 Inactive Plavix 75 mg tablet RxNorm: 394809 1 TABLET(S) PO QD 06/20/201608/06 Inactive [SAVINGS FOR NON-COVERED DRUGS -- BIN:00 3585, PCN: ASPROD1, Group: XXXXX, ID# [id number], Questions: . THIS IS NOT INSURANCE.] clonazepam 0.5 mg tablet RxNorm: 741505 1 Tablet(s) PO BID 06/09/20 16 07/03/2016 Inactive pravastatin 20 mg tablet RxNorm: 476145 1 Tablet(s) PO QD 05/23/2016 08/06/2016 Inactive pravastatin 20 mg tablet RxNorm: 073531 1 Tablet(s) PO QD 05/23/2016 05/22/2016 Inactive carvedilol 3.125 mg tablet RxNorm: 646172 1 Tablet(s) P O BID to replace 6.25mg dose 05/10/2016 08/06/2016 Inactive carvedilol 3.125 mg tablet RxNorm: 527468 1 Tablet(s) P O BID to replace 6.25mg dose 05/10/2016 05/09/2016 Inactive clonazepam 0.5 mg tablet RxNorm: 025017 1 Tablet(s) PO BID 05/10/20 16 06/08/2016 Inactive carvedilol 6.25 mg tablet RxNorm: 309309 1 Tablet(s) PO QD 05/10/20 16 05/10/2016 Inactive simvastatin 40 mg tablet RxNorm: 057236 1 TABLET(S) PO QD 04/10/2016 05/09/2016 Inactive Medrol (Jose) 4 mg tablets in a dose pack RxNorm: 640656 Tablet(s) PO As Directed 01/13/2016 05/09/2016 Inactive cyclobenzaprine 10 mg tablet RxNorm: 102116 1 TABLET(S) PO TID NEEDED FOR SPASM 01/11/2016 03/10/2016 Inactive [SAVINGS FOR NON -COVERED DRUGS -- BIN:165069, PCN: ASPROD1, Group: XXXXX, ID# [id number], Questions: . THIS IS NOT INSURANCE.] Plavix 75 mg tablet RxNorm: 197558 1 Tablet(s) PO QD 12/30/201506/19 Inactive [SAVINGS FOR NON-COVERED DRUGS -- BIN:00 3585, PCN: ASPROD1, Group: XXXXX, ID# [id number], Questions: . THIS IS NOT INSURANCE.] Ambien 5 mg tablet RxNorm: 193797 TAKE 1 TABLET BY MOUTH EVERY DAY AT BEDTIME 11/15/2015 11/17/2016 Inactive simvastatin 40 mg tablet RxNorm: 485679 1 Tablet(s) PO QD 10/11/2015 01/12/2019 Inactive simvastatin 40 mg tablet RxNorm: 910855 1 Tablet(s) PO QD 10/08/2015 10/10/2015 Inactive Ambien 5 mg tablet RxNorm: 927120 TAKE 1 TABLET BY MOUTH EVERY NIGHT AT BEDTIME 07/27/2015 11/15/2015 Inactive Plavix 75 mg tablet RxNorm: 690232 1 Tablet(s) PO QD 06/28/201512/29 Inactive [SAVINGS FOR NON-COVERED DRUGS -- BIN:00 3585, PCN: ASPROD1, Group: XXXXX, ID# [id number], Questions: . THIS IS NOT INSURANCE.] Coreg 6.25 mg tablet RxNorm: 201519 1 TABLET(S) PO BID 04/19/2015 Inactive [SAVINGS FOR NON-COVERED DRUGS -- BIN:00 3585, PCN: ASPROD1, Group: XXXXX, ID# XXXXXXX, Questions: . THIS IS NOT INSURANCE.] simvastatin 40 mg tablet RxNorm: 525491 1 Tablet(s) PO QD 04/05/2015 04/04/2015 Inactive simvastatin 40 mg tablet RxNorm: 631879 1 Tablet(s) PO QD 04/05/2015 10/11/2015 Inactive Plavix 75 mg tablet RxNorm: 343484 1 TABLET(S) PO QD 03/22/201504/20 Inactive [SAVINGS FOR NON-COVERED DRUGS -- BIN:00 3585, PCN: ASPROD1, Group: XXXXX, ID# [id number], Questions: . THIS IS NOT INSURANCE.] Plavix 75 mg tablet RxNorm: 987830 1 Tablet(s) PO QD 03/22/201506/28 Inactive [SAVINGS FOR NON-COVERED DRUGS -- BIN:00 3585, PCN: ASPROD1, Group: XXXXX, ID# [id number], Questions: . THIS IS NOT INSURANCE.] Ambien 5 mg tablet RxNorm: 623388 1 Tablet(s) PO QHS 12/17/201407/28 Inactive [SAVINGS FOR NON-COVERED DRUGS -- BIN:00 3585, PCN: ASPROD1, Group: XXXXX, ID# [id number], Questions: . THIS IS NOT INSURANCE.] Coreg 6.25 mg tablet RxNorm: 892699 1 Tablet(s) PO BID 12/17/2014 Inactive [SAVINGS FOR NON-COVERED DRUGS -- BIN:00 3585, PCN: ASPROD1, Group: XXXXX, ID# [id number], Questions: . THIS IS NOT INSURANCE.] Plavix 75 mg tablet RxNorm: 967967 1 Tablet(s) PO QD 12/17/201403/16 Inactive [SAVINGS FOR NON-COVERED DRUGS -- BIN:00 3585, PCN: ASPROD1, Group: XXXXX, ID# [id number], Questions: . THIS IS NOT INSURANCE.] cyclobenzaprine 10 mg tablet RxNorm: 708992 1 Tablet(s) PO TID as needed for spasm 12/17/2014 03/16/2015 Inactive [SAVINGS FOR NON -COVERED DRUGS -- BIN:155555, PCN: ASPROD1, Group: XXXXX, ID# [id number], Questions: . THIS IS NOT INSURANCE.] Coreg 6.25 mg tablet RxNorm: 682070 1 Tablet(s) PO BID 10/21/201409/2014 Inactive [SAVINGS FOR NON-COVERED DRUGS -- BIN:00 3585, PCN: ASPROD1, Group: XXXXX, ID# [id number], Questions: . THIS IS NOT INSURANCE.] Plavix 75 mg tablet RxNorm: 744622 1 Tablet(s) PO QD 10/21/201412/16 Inactive [SAVINGS FOR NON-COVERED DRUGS -- BIN:00 3585, PCN: ASPROD1, Group: XXXXX, ID# [id number], Questions: . THIS IS NOT INSURANCE.] Plavix 75 mg tablet RxNorm: 759552 1 Tablet(s) PO QD Ne eds routine check up--last seen March 2012 09/21/2014 10/20/2014 Inactive [SAVINGS FOR UNINSURED PATIENTS -- BIN:286628, PCN: ASPROD1, Group: AME08, ID# [id number], Process claim through [employer], for questions: . THIS IS NOT INSURANCE.] Ambien 5 mg tablet RxNorm: 802473 1 Tablet(s) PO QHS 09/21/201412/16 Inactive [SAVINGS FOR UNINSURED PATIENTS -- BIN:0 87164, PCN: ASPROD1, Group: AME08, ID# [id number], Process claim through [employer], for questions: . THIS IS NOT INSURANCE.] Coreg 6.25 mg tablet RxNorm: 552278 1 Tablet(s) PO BID 09/21/201411/2014 Inactive [SAVINGS FOR UNINSURED PATIENTS -- BIN:0 54011, PCN: ASPROD1, Group: AME08, ID# [id number], Process claim through [employer], for questions: . THIS IS NOT INSURANCE.] Plavix 75 mg tablet RxNorm: 084472 1 Tablet(s) PO QD Ne eds routine check up--last seen March 2012 08/04/2014 09/02/2014 Inactive [SAVINGS FOR UNINSURED PATIENTS -- BIN:150437, PCN: ASPROD1, Group: AME08, ID# [id number], Process claim through [employer], for questions: . THIS IS NOT INSURANCE.] Plavix 75 mg tablet RxNorm: 444741 1 Tablet(s) PO QD Ne eds routine check up--last seen March 2012 08/03/2014 08/03/2014 Inactive Protonix 40 mg tablet,delayed release RxNorm: 349204 1 Tablet(s ) PO QD 06/08/2014 02/17/2019 Inactive [SAVINGS FOR UNINSUR ED PATIENTS -- BIN:286224, PCN: ASPROD1, Group: AME08, ID# [id number], Process claim through [employer], for questions: . THIS IS NOT INSURANCE.] hydrocodone 10 mg-acetaminophen 325 mg tablet RxNorm: 897810 1 Tablet(s) PO BID as needed for pain 02/18/2014 03/31/2015 Inactive Coreg 6.25 mg tablet RxNorm: 705282 1 Tablet(s) PO BID 02/02/2014 Inactive Protonix 40 mg granules delayed-release packet RxNorm: 708963 1 Tablet(s) PO QD 01/13/2014 06/08/2014 Inactive Plavix 75 mg tablet RxNorm: 932902 1 Tablet(s) PO QD Ne eds routine check up--last seen March 2012 01/13/2014 08/02/2014 Inactive Plavix 75 mg tablet RxNorm: 347629 1 Tablet(s) PO QD Ne eds routine check up--last seen March 2012 12/09/2013 01/07/2014 Inactive Coreg 6.25 mg tablet RxNorm: 492959 1 Tablet(s) PO BID 12/09/2013 Inactive Cymbalta 60 mg capsule,delayed release RxNorm: 327236 1 Capsule (s) PO QD 10/31/2013 01/12/2014 Inactive Coreg 6.25 mg tablet RxNorm: 812037 1 Tablet(s) PO BID 10/31/2013 Inactive Plavix 75 mg tablet RxNorm: 290682 1 Tablet(s) PO QD Ne eds routine check up--last seen March 2012 10/31/2013 11/29/2013 Inactive Coreg 6.25 mg tablet RxNorm: 860068 1 Tablet(s) PO BID 10/31/2013 Inactive atorvastatin 40 mg tablet RxNorm: 810737 1 Tablet(s) PO QD 10/31/19 14 03/31/2015 Inactive Plavix 75 mg tablet RxNorm: 053136 1 Tablet(s) PO QD Ne eds routine check up--last seen March 2012 09/23/2013 10/30/2013 Inactive cyclobenzaprine 10 mg tablet RxNorm: 937861 1 Tablet(s) PO TID as needed for spasm 09/23/2013 No Stop Date Active cyclobenzaprine 10 mg tablet RxNorm: 898997 1 Tablet(s) PO TID as needed for spasm 07/04/2013 09/22/2013 Inactive atorvastatin 40 mg tablet RxNorm: 348406 1 Tablet(s) PO QD 06/23/20 13 10/30/2013 Inactive atorvastatin 40 mg tablet RxNorm: 684731 1 Tablet(s) PO QD 04/22/20 13 06/22/2013 Inactive Nucynta 50 mg tablet RxNorm: 251010 1-2 Tablet(s) PO Q6H as nee ded for pain 01/01/2013 01/12/2014 Inactive Ambien 5 mg tablet RxNorm: 062255 1 Tablet(s) PO QHS 10/16/201201/13 Inactive Plavix 75 mg tablet RxNorm: 050063 1 Tablet(s) PO QD 09/19/201209/13 Inactive Protonix 40 mg tablet,delayed release RxNorm: 123625 1 Tablet(s ) PO QD 09/19/2012 09/18/2012 Inactive simvastatin 40 mg tablet RxNorm: 013248 1 Tablet(s) PO QD 09/19/2012 02/23/2013 Inactive Protonix 40 mg tablet,delayed release RxNorm: 308973 1 Tablet(s ) PO QD 09/19/2012 09/13/2013 Inactive Ultram 50 mg tablet RxNorm: 936415 1-2 Tablet(s) PO QID as need ed for pain 09/19/2012 02/26/2017 Inactive propranolol 80 mg tablet RxNorm: 579104 1 Tablet(s) PO QHS 09/19/19 13 09/18/2012 Inactive Cymbalta 60 mg capsule,delayed release RxNorm: 776368 1 Capsule (s) PO QD 09/19/2012 09/18/2012 Inactive Cymbalta 60 mg capsule,delayed release RxNorm: 713134 1 Capsule (s) PO QD 09/19/2012 03/17/2013 Inactive propranolol 80 mg tablet RxNorm: 481819 1 Tablet(s) PO QHS 09/19/19 13 02/23/2013 Inactive hydrocodone-acetaminophen 10 mg-325 mg tablet RxNorm: 878211 2 1-2 Tablet(s) PO QID 07/25/2012 02/23/2013 Inactive Ambien 10 mg tablet RxNorm: 402881 1 Tablet(s) PO QHS as needed for sleep 07/10/2012 01/27/2013 Inactive propranolol 80 mg tablet RxNorm: 444985 1 Tablet(s) PO QHS 05/13/20 12 09/18/2012 Inactive hydrocodone-acetaminophen 10 mg-325 mg tablet RxNorm: 355306 2 1-2 Tablet(s) PO QID 05/02/2012 No Stop Date Active Restoril 15 mg Cap RxNorm: 706305 1-2 Capsule(s) PO QHS 05/02/2012 Inactive propranolol 80 mg tablet RxNorm: 159022 1 Tablet(s) PO QHS 05/02/20 12 05/12/2012 Inactive Chantix Starting Month Box 0.5 mg (11)-1 mg (42) Tabs in a Dose Pack RxNorm: 308873 Tablet(s) PO As Directed 04/01/2012 01/27/2013 Inactive simvastatin 40 mg tablet RxNorm: 503125 1 Tablet(s) PO QD 03/28/2012 09/18/2012 Inactive simvastatin 40 mg Tab RxNorm: 939306 1 Tablet(s) PO QD 03/22/201207/2012 Inactive Effient 10 mg Tab RxNorm: 787334 1 Tablet(s) PO QD 03/22/2012 012 Inactive Prilosec 40 mg Capsule, delayed release RxNorm: 596472 1 Capsul e(s) PO QD 03/22/2012 09/18/2012 Inactive Prilosec 40 mg Capsule, delayed release RxNorm: 063943 1 Capsul e(s) PO QD 03/19/2012 03/21/2012 Inactive Cymbalta 60 mg capsule,delayed release RxNorm: 984761 1 Capsule (s) PO QD 03/04/2012 08/30/2012 Inactive hydrocodone-acetaminophen 10 mg-325 mg Tab RxNorm: 5561682 1-2 T ablet(s) PO QID 01/23/2012 No Stop Date Active Cymbalta 60 mg Capsule, delayed release RxNorm: 297736 1 Capsul e(s) PO QD 01/23/2012 03/03/2012 Inactive Cipro 500 mg Tab RxNorm: 781836 1 Tablet(s) PO BID 12/20/2011 012 Inactive Cymbalta 60 mg Capsule, delayed release RxNorm: 441618 1 Capsul e(s) PO QD 12/13/2011 01/22/2012 Inactive nortriptyline 75 mg Cap RxNorm: 330511 1 Capsule(s) PO QHS 11/29/1904/02/2012 Inactive Cymbalta 60 mg Cap RxNorm: 072651 1 Capsule(s) PO QD 10/24/201112/11 Inactive propranolol 80 mg Tab RxNorm: 694178 1 Tablet(s) PO QHS 10/24/2011 Inactive hydrocodone-acetaminophen 10 mg-325 mg Tab RxNorm: 6192600 1-2 T ablet(s) PO QID 09/29/2011 No Stop Date Active hydrocodone-acetaminophen 10 mg-325 mg Tab RxNorm: 0605539 1-2 T ablet(s) PO QID 07/25/2011 No Stop Date Active hydrocodone-acetaminophen 10 mg-325 mg Tab RxNorm: 4457241 1-2 T ablet(s) PO QID 02/14/2011 No Stop Date Active Prilosec 40 mg Cap RxNorm: 274837 1 Capsule(s) PO 01/03/2011 01/13/20 19 Inactive nortriptyline 75 mg Cap RxNorm: 102377 1 Capsule(s) PO QHS 01/04/20 11 07/01/2011 Inactive Neurontin 600 mg Tab RxNorm: 276363 1 Tablet(s) PO QHS 12/08/201011/2011 Inactive hydrocodone-acetaminophen 5 mg-500 mg Tab RxNorm: 389504 2 Tablet(s) PO Q4-6H prn 10/20/2010 01/08/2011 Inactive Diltzac ER 240 mg Cap RxNorm: 836130 1 Capsule(s) PO QD 07/14/2010 Inactive Nortriptyline 75 mg Cap RxNorm: 805407 1 Capsule(s) PO QHS 05/09/2001/12/2019 Inactive Neurontin 600 mg Tab RxNorm: 494435 1 Tablet(s) PO QD 03/17/201012/17 Inactive Nortriptyline 75 mg Cap RxNorm: 622619 1 Capsule(s) PO 01/12/2010 Inactive Nortriptyline 50 mg Cap RxNorm: 807997 1 Capsule(s) PO QHS 01/13/20 10 01/11/2010 Inactive Diltzac ER 240 mg Cap RxNorm: 926774 1 Capsule(s) PO QD 12/06/2009 Inactive aspirin 81 mg Tab RxNorm: 690319 1 Tablet(s) PO QD No Start Date Active Vitamin D3 2,000 unit tablet RxNorm: 132090 1 Tablet(s) PO QD No Star t Date Active ufkuhplkv-oimpdwkmy-[id number] complex no.233 oral RxNorm: oral No Start Date Active primidone 50 mg tablet RxNorm: 753065 2 Tablet(s) PO BID No Start Date Active Prilosec 40 mg Capsule, delayed release RxNorm: 643445 1 Capsul e(s) PO QD No Start Date 03/18/2012 Inactive Prilosec 20 mg Cap RxNorm: 893468 1 Capsule(s) PO QHS No Start Date 0 01/02/2011 Inactive primidone 50 mg tablet RxNorm: 103491 1/2 Tablet(s) PO QHS for 1week then go full tab if needed No Start Date 05/01/2017 Inactive ProAir HFA 90 mcg/actuation aerosol inhaler RxNorm: 286485 2 Puff(s) INH Q4H as needed No Start Date 10/29/2017 Inactive clonazepam 0.5 mg tablet RxNorm: 789143 1/2 Tablet(s) PO BID No Sta rt Date 02/12/2017 Inactive Pepcid AC 10 mg Tab RxNorm: 914985 1 Tablet(s) PO QAM No Start Date 0 02/19/2011 Inactive Coreg Oral RxNorm: Oral No Start Date 01/12/2014 Inactive primidone 50 mg tablet RxNorm: 477000 1/2 Tablet(s) PO QD for 7 days then increase to 1 tablet at bedtime No Start Date 01/08/2017 Inactive Medrol (Jose) 4 mg tablets in a dose pack RxNorm: 563817 Tablet(s) PO As Directed No Start Date 01/12/2016 Inactive Plavix 75 mg tablet RxNorm: 455078 1 Tablet(s) PO QD No Start Date Inactive cyclobenzaprine 10 mg tablet RxNorm: 533360 1 Tablet(s) PO TID as needed for spasm No Start Date 07/03/2013 Inactive Bevespi Aerosphere 9 mcg-4.8 mcg HFA aerosol inhaler RxNorm: 4781293 2 Puff(s) INH BID No Start Date 02/18/2019 Inactive tramadol 50 mg tablet RxNorm: 867921 1-2 Tablet(s) PO TID as ne eded for pain No Start Date 01/12/2019 Inactive clonazepam 1 mg tablet RxNorm: 354131 1 Tablet(s) PO QAM No Start D ate 09/18/2018 Inactive hydrocodone-acetaminophen 5 mg-500 mg Tab RxNorm: 912296 2 Tablet(s) PO Q4-6H prn No Start Date 10/19/2010 Inactive lisinopril 20 mg Tab RxNorm: 487167 1/2 Tablet(s) PO QD No Start Da te 03/12/2011 Inactive Lyrica 75 mg capsule RxNorm: 650693 1 Capsule(s) PO QHS No Start Da te 10/08/2019 Inactive Protonix 40 mg tablet,delayed release RxNorm: 040934 1 Tablet(s ) PO QD No Start Date 06/07/2014 Inactive Lipitor Oral RxNorm: Oral No Start Date 01/12/2014 Inactive primidone 50 mg tablet RxNorm: 014519 2 Tablet(s) PO QAM and 1 tablet at HS No Start Date 02/17/2019 Inactive hydrocodone-acetaminophen 10 mg-325 mg Tab RxNorm: 5912467 1-2 T ablet(s) PO QID No Start Date 02/13/2011 Inactive Ultram 50 mg tablet RxNorm: 685497 1-2 Tablet(s) PO QID as need ed for pain No Start Date 09/18/2012 Inactive Effient 10 mg Tab RxNorm: 203910 1 Tablet(s) PO QD No Start Date 01/2012 Inactive Bevespi Aerosphere 9 mcg-4.8 mcg HFA aerosol inhaler RxNorm: 3738898 2 Puff(s) INH BID No Start Date 10/29/2017 Inactive Neurontin Oral RxNorm: Oral No Start Date 01/12/2010 Inactive primidone 50 mg tablet RxNorm: 858783 1 Tablet(s) PO QD No Start Da te 01/12/2019 Inactive Chantix Starting Month Box 0.5 mg (11)-1 mg (42) Tabs in a Dose Pack RxNorm: 551230 Tablet(s) PO No Start Date 03/31/2012 Inactive atenolol 25 mg Tab RxNorm: 453277 1 Tablet(s) PO QD No Start Date 02/2012 Inactive Neurontin 600 mg Tab RxNorm: 388243 1 Tablet(s) PO QD No Start Date 0 03/16/2010 Inactive Nucynta 50 mg tablet RxNorm: 021985 1-2 Tablet(s) PO Q6H as nee ded for pain No Start Date 12/31/2012 Inactive simvastatin 40 mg Tab RxNorm: 095082 1 Tablet(s) PO QD No Start Date 03/21/2012 Inactive Medication Administered No Medication Administered data Immunizations Vaccine Codes Date Status Influenza CVX: 135 07/04/2017 Complete Results Observation Observation Code Item Item Code Result Date S vice Location COMPLETE BLOOD COUNT [id number] WBC 4.9 10e9/L 09/30/19 20 Unknown COMPLETE BLOOD COUNT [id number] RBC 4.65 10e12/L 2019 Unknown COMPLETE BLOOD COUNT [id number] HEMOGLOBIN 13.8 g/dL 09/30/19 20 Unknown COMPLETE BLOOD COUNT [id number] HEMATOCRIT 42.3 % 09/30/19 20 Unknown COMPLETE BLOOD COUNT [id number] MCV 91.0 fL 0 Unknown COMPLETE BLOOD COUNT [id number] MCH 29.7 pg 0 Unknown COMPLETE BLOOD COUNT [id number] MCHC 32.6 g/dL 0 Unknown COMPLETE BLOOD COUNT [id number] PLATELET COUNT 230 10e9/L Unknown COMPLETE BLOOD COUNT [id number] Mean Plt Volume 9.9 fL Unknown COMPLETE BLOOD COUNT [id number] Neut Auto 52.5 % 0 Unknown COMPLETE BLOOD COUNT [id number] Lymph Auto 30.8 % 09/30/19 20 Unknown COMPLETE BLOOD COUNT [id number] [place] Auto 11.2 % 0 Unknown COMPLETE BLOOD COUNT [id number] RDW 13.5 % 0 Unknown COMPLETE BLOOD COUNT [id number] Eos Auto 5.1 % 0 Unknown COMPLETE BLOOD COUNT [id number] Baso Auto 0.4 % 0 Unknown COMPLETE BLOOD COUNT [id number] Neutrophil Abs 2.57 10e9/L Unknown COMPLETE BLOOD COUNT [id number] Lymphocyte Abs 1.51 10e9/L Unknown COMPLETE BLOOD COUNT [id number] Monocyte Abs 0.55 10e9/L 09/17 Unknown COMPLETE BLOOD COUNT [id number] Eosinophil Abs 0.25 10e9/L Unknown COMPLETE BLOOD COUNT [id number] RDW-SD 43.9 fL 0 Unknown COMPLETE BLOOD COUNT [id number] Basophil Abs 0.02 10e9/L 09/17 Unknown GFR CALC [id number] GFR Afr Amr >60 mL/min 09/30/2019 Unknow n GFR CALC [id number] GFR Non Afr Amr >60 mL/min 09/30/2019 Un known THYROID STIMULATING HORMONE 62146 TSH 1.129 uIU/mL 09/30/2019 Unknown PSA EQUIMOLAR BARBIE 83567 PSA Total 0.77 ng/mL 0 Unknown LIPID GROUP 67786 Cholesterol 192 mg/dL 09/30/2019 Unkno wn L[facility] GROUP 14304 Triglyceride 86 mg/dL 09/30/2019 Unkn own L[facility] 99791 HDL CHOLESTEROL 64 mg/dL 09/30/2019 U nknown L[facility] GROUP 55730 Chol/HDL Ratio 3.00 ratio 09/30/2019 U nknown L[facility] GROUP 30480 NON-HDL Chol 128 mg/dL 09/30/2019 Unkn own L[facility] GROUP 90025 LDL Cholesterol 111 mg/dL 09/30/2019 U nknown COMPREHENSIVE METABOLIC 17313 AST 17 U/L 2019 Unknown COMPREHENSIVE METABOLIC 95991 ALT 10 U/L 2019 Unknown COMPREHENSIVE METABOLIC 20488 BUN 13 mg/dL 2019 Unknown COMPREHENSIVE METABOLIC 74914 ALBUMIN 4.3 g/dL 2019 Unknown COMPREHENSIVE METABOLIC 84444 CHLORIDE 102 mmol/L 09/30 Unknown COMPREHENSIVE METABOLIC 62057 Bili Total 0.6 mg/dL 09/30 Unknown COMPREHENSIVE METABOLIC 29273 ALK PHOS 91 U/L 2019 Unknown COMPREHENSIVE METABOLIC 27189 SODIUM 138 mmol/L 09/30 Unknown COMPREHENSIVE METABOLIC 12868 CREATININE 1.09 mg/dL 09/17 Unknown COMPREHENSIVE METABOLIC 98420 CALCIUM 9.0 mg/dL 2019 Unknown COMPREHENSIVE METABOLIC 17545 POTASSIUM 4.5 mmol/L 09/30 Unknown COMPREHENSIVE METABOLIC 12090 Total Protein 6.8 g/dL Unknown COMPREHENSIVE METABOLIC 84169 Glucose 91 mg/dL 2019 Unknown COMPREHENSIVE METABOLIC 03646 Bicarbonate 28 mmol/L 09/17 Unknown COMPREHENSIVE METABOLIC 57421 AGAP 8 mmol/L 2019 Unknown COMPLETE BLOOD COUNT [id number] WBC 4.9 10e9/L 09/04/20 18 Unknown COMPLETE BLOOD COUNT [id number] RBC 4.42 10e12/L 2017 Unknown COMPLETE BLOOD COUNT [id number] HEMOGLOBIN 13.4 g/dL 09/04/20 18 Unknown COMPLETE BLOOD COUNT [id number] HEMATOCRIT 40.5 % 09/04/20 18 Unknown COMPLETE BLOOD COUNT [id number] MCV 91.6 fL 8 Unknown COMPLETE BLOOD COUNT 0235492 MCH 30.3 pg 8 Unknown COMPLETE BLOOD COUNT [id number] MCHC 33.1 g/dL 8 Unknown COMPLETE BLOOD COUNT [id number] PLATELET COUNT 224 10e9/L Unknown COMPLETE BLOOD COUNT 3349270 Mean Plt Volume 9.9 fL Unknown COMPLETE BLOOD COUNT [id number] Neut Auto 60.8 % 8 Unknown COMPLETE BLOOD COUNT [id number] Lymph Auto 26.8 % 09/04/20 18 Unknown COMPLETE BLOOD COUNT [id number] [place] Auto 10.4 % 8 Unknown COMPLETE BLOOD COUNT 3303189 RDW 12.8 % 8 Unknown COMPLETE BLOOD COUNT 6770606 Eos Auto 1.6 % 8 Unknown COMPLETE BLOOD COUNT [id number] Baso Auto 0.4 % 8 Unknown COMPLETE BLOOD COUNT [id number] Neutrophil Abs 2.98 10e9/L Unknown COMPLETE BLOOD COUNT [id number] Lymphocyte Abs 1.31 10e9/L Unknown COMPLETE BLOOD COUNT [id number] Monocyte Abs 0.51 10e9/L 08/17 Unknown COMPLETE BLOOD COUNT [id number] Eosinophil Abs 0.08 10e9/L Unknown COMPLETE BLOOD COUNT [id number] RDW-SD 41.6 fL 8 Unknown COMPLETE BLOOD COUNT [id number] Basophil Abs 0.02 10e9/L 08/17 Unknown COMPREHENSIVE METABOLIC 36914 AST 16 U/L 2017 Unknown COMPREHENSIVE METABOLIC 63932 ALT 8 U/L 2017 Unknown COMPREHENSIVE METABOLIC 89746 BUN 12 mg/dL 2017 Unknown COMPREHENSIVE METABOLIC 66452 ALBUMIN 4.4 g/dL 2017 Unknown COMPREHENSIVE METABOLIC 50017 CHLORIDE 107 mmol/L 09/04 Unknown COMPREHENSIVE METABOLIC 18103 Bili Total 1.0 mg/dL 09/04 Unknown COMPREHENSIVE METABOLIC 53450 ALK PHOS 58 U/L 2017 Unknown COMPREHENSIVE METABOLIC 83033 SODIUM 142 mmol/L 09/04 Unknown COMPREHENSIVE METABOLIC 48207 CREATININE 0.97 mg/dL 08/17 Unknown COMPREHENSIVE METABOLIC 35958 CALCIUM 9.2 mg/dL 2017 Unknown COMPREHENSIVE METABOLIC 05543 POTASSIUM 4.6 mmol/L 09/04 Unknown COMPREHENSIVE METABOLIC 10841 Total Protein 6.5 g/dL Unknown COMPREHENSIVE METABOLIC 64761 Glucose 96 mg/dL 2017 Unknown COMPREHENSIVE METABOLIC 06942 Bicarbonate 29 mmol/L 08/17 Unknown COMPREHENSIVE METABOLIC 81192 AGAP 6 mmol/L 2017 Unknown LIPID GROUP 24729 Cholesterol 182 mg/dL 09/04/2018 Unkno wn LIPID GROUP 22215 Triglyceride 84 mg/dL 09/04/2018 Unkn own LIPID GROUP 64341 HDL CHOLESTEROL 76 mg/dL 09/04/2018 U nknown LIPID GROUP 03648 Chol/HDL Ratio 2.39 ratio 09/04/2018 U nknown LIPID GROUP 68756 NON-HDL Chol 106 mg/dL 09/04/2018 Unkn own LIPID GROUP 74380 LDL Cholesterol 89 mg/dL 09/04/2018 U nknown GFR CALC 7185367 GFR Non Afr Amr >60 mL/min 09/04/2018 Un known GFR CALC 8014314 GFR Afr Amr >60 mL/min 09/04/2018 Unknow n THYROID STIMULATING HORMONE 53675 TSH 0.713 uIU/mL 09/04/2018 Unknown PSA EQUIMOLAR BARBIE 16511 PSA Total 0.66 ng/mL 8 Unknown A FOOD C P [id number] [place] Cl Class 0 11/17/2017 Unknown A FOOD C P [id number] [place] Ct <0.35 kU/L 11/17/2017 Unknow n A FOOD C P [id number] [place] Cl Class 0 11/17/2017 Unkn own A FOOD C P [id number] [place] Ct <0.35 kU/L 11/17/2017 Unk nown A FOOD C P [id number] [place] Cl Class 0 11/17/2017 Unkno wn A FOOD C P [id number] Egg [place] Ct <0.35 kU/L 11/17/2017 Unkn own A FOOD C P [id number] Egg Yolk Cl Class 0 11/17/2017 Unknow n A FOOD C P [id number] Egg Yolk Ct <0.35 kU/L 11/17/2017 Unkno wn A FOOD C P [id number] Cow Milk Cl Class 0 11/17/2017 Unknow n A FOOD C P [id number] Cow Milk Ct <0.35 kU/L 11/17/2017 Unkno wn A FOOD C P [id number] Peanut Cl Class 0 11/17/2017 Unknown A FOOD C P [id number] Peanut Ct <0.35 kU/L 11/17/2017 Unknown A FOOD C P [id number] Sh[place] Cl Class 0 11/17/2017 Unknown A FOOD C P [id number] [place] Ct <0.35 kU/L 11/17/2017 Unknown A FOOD C P [id number] [place] Cl Class 0 11/17/2017 Unknown A FOOD C P [id number] [place] Ct <0.35 kU/L 11/17/2017 Unknow n A FOOD C P [id number] [place] Cl Class 0 11/17/2017 Unknown A FOOD C P [id number] [place] Ct <0.35 kU/L 11/17/2017 Unknown A FOOD C P [id number] Potato Cl Class 0 11/17/2017 Unknown A FOOD C P [id number] Potato Ct <0.35 kU/L 11/17/2017 Unknown A FOOD C P [id number] Beef Cl Class 2 11/17/2017 Unknown A FOOD C P [id number] Beef Ct 0.88 kU/L 11/17/2017 Unknown A FOOD C P [id number] [place] Cl Class 0 11/17/2017 Unknown A FOOD C P [id number] [place] Ct <0.35 kU/L 11/17/2017 Unknown A FOOD C P [id number] P[place] Cl Class 0 11/17/2017 Unknown A FOOD C P [id number] [place] Ct <0.35 kU/L 11/17/2017 Unknown A FOOD C P [id number] [place] Cl Class 0 11/17/2017 Unknown A FOOD C P [id number] [place] Ct <0.35 kU/L 11/17/2017 Unknown A FOOD C P [id number] [place] Cl Class 0 11/17/2017 Unkn own A FOOD C P [id number] [place] Ct <0.35 kU/L 11/17/2017 Unk nown A FOOD C P [id number] [place] Cl Class 0 11/17/2017 Unknown A FOOD C P [id number] [place] Ct <0.35 kU/L 11/17/2017 Unknown A FOOD C P [id number] [place] Cl Class 0 11/17/2017 Unknown A FOOD C P [id number] [place] Ct <0.35 kU/L 11/17/2017 Unknown A FOOD C P [id number] [place] CL Class 0 11/17/2017 Unknown A FOOD C P [id number] [place] <0.35 kU/L 11/17/2017 Unknown A FOOD C P [id number] [place] Cl Class 0 11/17/2017 Unknown A FOOD C P [id number] [place] Ct <0.35 kU/L 11/17/2017 Unknown A FOOD C P [id number] Oat Cl Class 0 11/17/2017 Unknown A FOOD C P [id number] Oat Ct <0.35 kU/L 11/17/2017 Unknown A FOOD C P [id number] [place] Cl Class 0 11/17/2017 Unknown A FOOD C P [id number] [place] Ct <0.35 kU/L 11/17/2017 Unknown A FOOD C P [id number] [place] CL Class 0 11/17/2017 Un known A FOOD C P [id number] [place] Ct <0.35 kU/L 11/17/2017 U nknown A FOOD C P [id number] [place] Cl Class 0 11/17/2017 Unknown A FOOD C P [id number] [place] Ct <0.35 kU/L 11/17/2017 Unknown A FOOD C P [id number] [place] Meat Cl Class 0 11/17/2017 Unkn own A FOOD C P [id number] [place] Ct <0.35 kU/L 11/17/2017 Unk nown A NUTS PNL [id number] [place] Cl Class 0 11/17/2017 Unknown A NUTS PNL [id number] Pe[place] Ct <0.35 kU/L 11/17/2017 Unknown A NUTS PNL [id number] [place] Meat Cl Class 0 11/17/2017 Unk nown A NUTS PNL [id number] [place] [facility] <0.35 kU/L 11/17/2017 Un known A NUTS PNL [id number] [place] Cl Class 0 11/17/2017 Unkn own A NUTS PNL [id number] [place] Ct <0.35 kU/L 11/17/2017 Unk nown A NUTS PNL [id number] [place] Cl Class 0 11/17/2017 Unknown A NUTS PNL [id number] [place] Ct <0.35 kU/L 11/17/2017 Unknown A NUTS PNL [id number] [place] Cl Class 0 11/17/2017 Unknow n A NUTS PNL [id number] [place] Ct <0.35 kU/L 11/17/2017 Unkno wn A NUTS PNL [id number] [place] Cl Class 0 11/17/2017 Unkno wn A NUTS PNL [id number] [place] Ct <0.35 kU/L 11/17/2017 Unkn own A NUTS PNL [id number] [place] Cl Class 0 11/17/2017 Unknown A NUTS PNL [id number] [place] Ct <0.35 kU/L 11/17/2017 Unknown A NUTS PNL [id number] [place] Cl Class 0 11/17/2017 Unkno wn A NUTS PNL [id number] [place] Ct <0.35 kU/L 11/17/2017 Unkn own A NUTS PNL [id number] Allergen Interp See Note 11/17/2017 Un known A FRT/VG P [id number] [place] Cl Class 0 11/17/2017 Unkn own A FRT/VG P [id number] [place] Ct <0.35 kU/L 11/17/2017 Unk nown A FRT/VG P [id number] [place] Cl Class 0 11/17/2017 Unknown A FRT/VG P [id number] [place] Ct <0.35 kU/L 11/17/2017 Unknown A FRT/VG P [id number] [place] Cl Class 0 11/17/2017 Unkn own A FRT/VG P [id number] [place] [address] <0.35 kU/L 11/17/2017 Unk nown A FRT/VG P [id number] [place] Cl Class 0 11/17/2017 Unknown A FRT/VG P [id number] [place] Ct <0.35 kU/L 11/17/2017 Unknown A FRT/VG P [id number] [place] Cl Class 0 11/17/2017 Unknown A FRT/VG P [id number] [place] Ct <0.35 kU/L 11/17/2017 Unknown A FRT/VG P [id number] [place] Cl Class 1 11/17/2017 Unknown A FRT/VG P [id number] [place] Ct 0.48 kU/L 11/17/2017 Unknown A FRT/VG P [id number] [place] Cl Class 0 11/17/2017 Unk nown A FRT/VG P [id number] [place] [facility] <0.35 kU/L 11/17/2017 Un known A FRT/VG P [id number] [place] Cl Class 0 11/17/2017 Unk nown A FRT/VG P [id number] [place] Ct <0.35 kU/L 11/17/2017 Un known A FRT/VG P [id number] [place] Cl Class 0 11/17/2017 Unknown A FRT/VG P [id number] [place] Ct <0.35 kU/L 11/17/2017 Unknown A FRT/VG P [id number] [place] Cl Class 0 11/17/2017 Unknown A FRT/VG P [id number] [place] Ct <0.35 kU/L 11/17/2017 Unknown A FRT/VG P [id number] [place] Cl Class 0 11/17/2017 Unkn own A FRT/VG P [id number] [place] Ct <0.35 kU/L 11/17/2017 Unk nown A FRT/VG P [id number] [place] Cl Class 0 11/17/2017 Unkn own A FRT/VG P [id number] Swt [place] Ct <0.35 kU/L 11/17/2017 Unk nown THYROID STIMULATING HORMONE 76922 TSH 1.371 uIU/mL 09/03/2017 Unknown FREE T4 83991 T4 Free 1.26 ng/dL 09/03/2017 Unknown ASSAY TRIIODOTHYRONINE (T3) 00381 T3 Total 0.9 ng/mL Unknown COMPLETE BLOOD COUNT [id number] WBC 5.9 10e9/L 07/31/20 17 Unknown COMPLETE BLOOD COUNT [id number] RBC 4.64 10e12/L 2016 Unknown COMPLETE BLOOD COUNT 0130503 HEMOGLOBIN 14.2 g/dL 07/31/20 17 Unknown COMPLETE BLOOD COUNT 9954817 HEMATOCRIT 42.1 % 07/31/20 17 Unknown COMPLETE BLOOD COUNT [id number] MCV 90.7 fL 7 Unknown COMPLETE BLOOD COUNT 0975973 MCH 30.6 pg 7 Unknown COMPLETE BLOOD COUNT [id number] MCHC 33.7 g/dL 7 Unknown COMPLETE BLOOD COUNT 0438908 PLATELET COUNT 195 10e9/L Unknown COMPLETE BLOOD COUNT 6816783 Mean Plt Volume 10.0 fL Unknown COMPLETE BLOOD COUNT [id number] Neut Auto 47.5 % 7 Unknown COMPLETE BLOOD COUNT [id number] Lymph Auto 37.4 % 07/31/20 17 Unknown COMPLETE BLOOD COUNT 9035692 [place] Auto 11.7 % 7 Unknown COMPLETE BLOOD COUNT [id number] RDW 12.8 % 7 Unknown COMPLETE BLOOD COUNT [id number] Eos Auto 3.2 % 7 Unknown COMPLETE BLOOD COUNT [id number] Baso Auto 0.2 % 7 Unknown COMPLETE BLOOD COUNT [id number] Neutrophil Abs 2.80 10e9/L Unknown COMPLETE BLOOD COUNT [id number] Lymphocyte Abs 2.21 10e9/L Unknown COMPLETE BLOOD COUNT [id number] Monocyte Abs 0.69 10e9/L 07/18 Unknown COMPLETE BLOOD COUNT [id number] Eosinophil Abs 0.19 10e9/L Unknown COMPLETE BLOOD COUNT 1246095 RDW-SD 41.6 fL 7 Unknown COMPLETE BLOOD COUNT [id number] Basophil Abs 0.01 10e9/L 07/18 Unknown LIPID GROUP 82937 Cholesterol 186 mg/dL 07/31/2017 Unkno wn LIPID GROUP 16539 Triglyceride 129 mg/dL 07/31/2017 Unkn own LIPID GROUP 20716 HDL CHOLESTEROL 79 mg/dL 07/31/2017 U nknown LIPID GROUP 18736 Chol/HDL Ratio 2.35 ratio 07/31/2017 U nknown LIPID GROUP 08466 NON-HDL Chol 107 mg/dL 07/31/2017 Unkn own LIPID GROUP 57880 LDL Cholesterol 81 mg/dL 07/31/2017 U nknown GFR CALC [id number] GFR Non Afr Amr >60 mL/min 07/31/2017 Un known GFR CALC [id number] GFR Afr Amr >60 mL/min 07/31/2017 Unknow n COMPREHENSIVE METABOLIC 73237 AST 19 U/L 2016 Unknown COMPREHENSIVE METABOLIC 92723 ALT 12 U/L 2016 Unknown COMPREHENSIVE METABOLIC 37507 BUN 15 mg/dL 2016 Unknown COMPREHENSIVE METABOLIC 42818 ALBUMIN 4.4 g/dL 2016 Unknown COMPREHENSIVE METABOLIC 28191 CHLORIDE 102 mmol/L 07/31 Unknown COMPREHENSIVE METABOLIC 30041 Bili Total 0.9 mg/dL 07/31 Unknown COMPREHENSIVE METABOLIC 76753 ALK PHOS 53 U/L 2016 Unknown COMPREHENSIVE METABOLIC 54983 SODIUM 138 mmol/L 07/31 Unknown COMPREHENSIVE METABOLIC 63863 CREATININE 1.06 mg/dL 07/18 Unknown COMPREHENSIVE METABOLIC 27544 CALCIUM 9.3 mg/dL 2016 Unknown COMPREHENSIVE METABOLIC 77864 POTASSIUM 4.0 mmol/L 07/31 Unknown COMPREHENSIVE METABOLIC 95692 Total Protein 6.8 g/dL Unknown COMPREHENSIVE METABOLIC 62093 Glucose 86 mg/dL 2016 Unknown COMPREHENSIVE METABOLIC 42814 Bicarbonate 28 mmol/L 07/18 Unknown COMPREHENSIVE METABOLIC 82840 AGAP 8 mmol/L 2016 Unknown COMPREHENSIVE METABOLIC 90567 AST 18 U/L 2015 Unknown COMPREHENSIVE METABOLIC 53132 ALT 9 U/L 2015 Unknown COMPREHENSIVE METABOLIC 31669 BUN 11 mg/dL 2015 Unknown COMPREHENSIVE METABOLIC 87939 ALBUMIN 4.2 g/dL 2015 Unknown COMPREHENSIVE METABOLIC 59225 CHLORIDE 104 mmol/L 05/19 Unknown COMPREHENSIVE METABOLIC 95052 Bili Total 1.2 mg/dL 05/19 Unknown COMPREHENSIVE METABOLIC 57489 ALK PHOS 54 U/L 2015 Unknown COMPREHENSIVE METABOLIC 80447 SODIUM 140 mmol/L 05/19 Unknown COMPREHENSIVE METABOLIC 59870 CREATININE 1.03 mg/dL 10/2015 Unknown COMPREHENSIVE METABOLIC 30771 CALCIUM 9.3 mg/dL 2015 Unknown COMPREHENSIVE METABOLIC 83640 POTASSIUM 4.9 mmol/L 05/19 Unknown COMPREHENSIVE METABOLIC 68056 Total Protein 6.7 g/dL Unknown COMPREHENSIVE METABOLIC 25364 Glucose 92 mg/dL 2015 Unknown COMPREHENSIVE METABOLIC 54527 Bicarbonate 28 mmol/L 10/2015 Unknown COMPREHENSIVE METABOLIC 59314 AGAP 8 mmol/L 2015 Unknown THYROID STIMULATING HORMONE 22722 TSH 1.545 uIU/mL 05/19/2016 Unknown GFR CALC [id number] GFR Afr Amr >60 mL/min 05/19/2016 Unknow n GFR CALC [id number] GFR Non Afr Amr >60 mL/min 05/19/2016 Un known VITAMIN B 12 55162 VITAMIN B12 298 pg/mL 05/19/2016 Unkn own COMPLETE BLOOD COUNT [id number] WBC 5.2 10e9/L 05/19/20 16 Unknown COMPLETE BLOOD COUNT 6060342 RBC 4.34 10e12/L 2015 Unknown COMPLETE BLOOD COUNT [id number] HEMOGLOBIN 12.9 g/dL 05/19/20 16 Unknown COMPLETE BLOOD COUNT 9605196 HEMATOCRIT 38.9 % 05/19/20 16 Unknown COMPLETE BLOOD COUNT 2580937 MCV 89.6 fL 6 Unknown COMPLETE BLOOD COUNT 6100935 MCH 29.7 pg 6 Unknown COMPLETE BLOOD COUNT 9852263 MCHC 33.2 g/dL 6 Unknown COMPLETE BLOOD COUNT 5804530 PLATELET COUNT 200 10e9/L 10/2015 Unknown COMPLETE BLOOD COUNT 3343184 Mean Plt Volume 10.1 fL 10/2015 Unknown COMPLETE BLOOD COUNT 6871296 Neut Auto 45.4 % 6 Unknown COMPLETE BLOOD COUNT 2169022 Lymph Auto 35.6 % 05/19/20 16 Unknown COMPLETE BLOOD COUNT 5604851 [place] Auto 11.9 % 6 Unknown COMPLETE BLOOD COUNT 5793539 Eos Auto 6.7 % 6 Unknown COMPLETE BLOOD COUNT 0375387 RDW 12.7 % 6 Unknown COMPLETE BLOOD COUNT 3886437 Baso Auto 0.4 % 6 Unknown COMPLETE BLOOD COUNT 6421852 Neutrophil Abs 2.36 10e9/L Unknown COMPLETE BLOOD COUNT 4350148 Lymphocyte Abs 1.85 10e9/L Unknown COMPLETE BLOOD COUNT 9566500 Monocyte Abs 0.62 10e9/L 10/2015 Unknown COMPLETE BLOOD COUNT 5924300 Eosinophil Abs 0.35 10e9/L Unknown COMPLETE BLOOD COUNT 2506259 RDW-SD 40.6 fL 6 Unknown COMPLETE BLOOD COUNT 4714822 Basophil Abs 0.02 10e9/L 10/2015 Unknown LIPID GROUP 53398 Cholesterol 197 mg/dL 05/19/2016 Unkno wn LIPID GROUP 06067 Triglyceride 92 mg/dL 05/19/2016 Unkn own LIPID GROUP 49819 HDL CHOLESTEROL 58 mg/dL 05/19/2016 U nknown LIPID GROUP 06760 Chol/HDL Ratio 3.40 ratio 05/19/2016 U nknown LIPID GROUP 63550 NON-HDL Chol 139 mg/dL 05/19/2016 Unkn own LIPID GROUP 65710 LDL Cholesterol 121 mg/dL 05/19/2016 U nknown FREE T4 16262 T4 Free 1.19 ng/dL 05/19/2016 Unknown COMPREHENSIVE METABOLIC 31255 AST 19 U/L 2014 Unknown COMPREHENSIVE METABOLIC 65577 ALT 10 IU/L 2014 Unknown COMPREHENSIVE METABOLIC 25565 BUN 20 MG/DL 2014 Unknown COMPREHENSIVE METABOLIC 68777 ALBUMIN 4.4 GM/DL 2014 Unknown COMPREHENSIVE METABOLIC 68364 CHLORIDE 104 MMOL/L 04/05 Unknown COMPREHENSIVE METABOLIC 49154 BILI TOT 2.2 MG/DL 2014 Unknown COMPREHENSIVE METABOLIC 09238 ALK PHOS 55 U/L 2014 Unknown COMPREHENSIVE METABOLIC 51978 SODIUM 138 MMOL/L 04/05 Unknown COMPREHENSIVE METABOLIC 53149 CREATININE 1.04 MG/DL 03/18 Unknown COMPREHENSIVE METABOLIC 75116 CALCIUM 9.3 MG/DL 2014 Unknown COMPREHENSIVE METABOLIC 37505 POTASSIUM 4.5 MMOL/L 04/05 Unknown COMPREHENSIVE METABOLIC 28156 PROT TOT 6.7 GM/DL 2014 Unknown COMPREHENSIVE METABOLIC 76139 Glucose 77 MG/DL 2014 Unknown COMPREHENSIVE METABOLIC 90524 BICARB 25 MMOL/L 2014 Unknown COMPREHENSIVE METABOLIC 63419 ANION GAP 9 MEQ/L 2014 Unknown GFR CALC [id number] GFR AA >60 ML/MIN 04/05/2015 Unknown GFR CALC [id number] GFR NON-AA >60 ML/MIN 04/05/2015 Unknown LIPID GROUP 17061 HDL TEST 60 MG/DL 04/05/2015 Unknown LIPID GROUP 84547 TRIG 70 MG/DL 04/05/2015 Unknown LIPID GROUP 71934 TEST LDL 137 MG/DL 04/05/2015 Unknown LIPID GROUP 55505 CHOL 211 MG/DL 04/05/2015 Unknown LIPID GROUP 16909 RCHOL/HDL 3.52 RATIO 04/05/2015 Unknow n LIPID GROUP 85588 NON-HDL CH 151 MG/DL 04/05/2015 Unknow n COMPLETE BLOOD COUNT [id number] WBC 5.3 10e9/L 04/05/20 15 Unknown COMPLETE BLOOD COUNT [id number] RBC 4.42 10e12/L 2014 Unknown COMPLETE BLOOD COUNT [id number] HGB 13.4 g/dL 5 Unknown COMPLETE BLOOD COUNT [id number] HCT DET 39.6 % 5 Unknown COMPLETE BLOOD COUNT [id number] MCV 89.6 fL 5 Unknown COMPLETE BLOOD COUNT [id number] MCH 30.3 pg 5 Unknown COMPLETE BLOOD COUNT [id number] MCHC 33.8 g/dL 5 Unknown COMPLETE BLOOD COUNT [id number] PLT 201 10e9/L 04/05/20 15 Unknown COMPLETE BLOOD COUNT [id number] MPV 10.3 fL 5 Unknown COMPLETE BLOOD COUNT [id number] LUPE % 56.4 % 5 Unknown COMPLETE BLOOD COUNT [id number] LY % 24.8 % 5 Unknown COMPLETE BLOOD COUNT [id number] MON % 12.8 % 5 Unknown COMPLETE BLOOD COUNT [id number] EOS % 5.4 % 5 Unknown COMPLETE BLOOD COUNT [id number] BASO % 0.6 % 5 Unknown COMPLETE BLOOD COUNT [id number] RDW 13.2 % 5 Unknown COMPLETE BLOOD COUNT [id number] ABS LUPE 2.99 10e9/L 015 Unknown COMPLETE BLOOD COUNT [id number] ABS LYMPH 1.31 10e9/L 015 Unknown COMPLETE BLOOD COUNT [id number] ABS MONO 0.68 10e9/L 015 Unknown COMPLETE BLOOD COUNT [id number] ABS EOS 0.29 10e9/L 015 Unknown COMPLETE BLOOD COUNT [id number] ABS BASO 0.03 10e9/L 015 Unknown COMPLETE BLOOD COUNT 6165504 RDW-SD 42.3 fL 5 Unknown LIPID GROUP 22965 HDL TEST 51 MG/DL 07/19/2012 Unknown LIPID GROUP 75962 TRIG 129 MG/DL 07/19/2012 Unknown LIPID GROUP 74076 TEST LDL 98 MG/DL 07/19/2012 Unknown LIPID GROUP 37749 CHOL 175 MG/DL 07/19/2012 Unknown LIPID GROUP 41606 RCHOL/HDL 3.43 RATIO 07/19/2012 Unknow n COMPREHENSIVE METABOLIC 82527 AST 18 U/L 2011 Unknown COMPREHENSIVE METABOLIC 39427 ALT 12 IU/L 2011 Unknown COMPREHENSIVE METABOLIC 38515 BUN 10 MG/DL 2011 Unknown COMPREHENSIVE METABOLIC 96649 ALBUMIN 4.1 GM/DL 2011 Unknown COMPREHENSIVE METABOLIC 16101 CHLORIDE 103 MMOL/L 07/19 Unknown COMPREHENSIVE METABOLIC 26323 BILI TOT 0.9 MG/DL 2011 Unknown COMPREHENSIVE METABOLIC 02477 ALK PHOS 62 U/L 2011 Unknown COMPREHENSIVE METABOLIC 76651 SODIUM 138 MMOL/L 07/19 Unknown COMPREHENSIVE METABOLIC 16213 CREATININE 1.08 MG/DL 10/2011 Unknown COMPREHENSIVE METABOLIC 63450 CALCIUM 9.1 MG/DL 2011 Unknown COMPREHENSIVE METABOLIC 55900 POTASSIUM 4.2 MMOL/L 07/19 Unknown COMPREHENSIVE METABOLIC 09532 PROT TOT 6.7 GM/DL 2011 Unknown COMPREHENSIVE METABOLIC 54825 Glucose 101 MG/DL 2011 Unknown COMPREHENSIVE METABOLIC 59146 BICARB 27 MMOL/L 2011 Unknown COMPREHENSIVE METABOLIC 61083 ANION GAP 8 MEQ/L 2011 Unknown GFR CALC 1364381 GFR AA >60 ML/MIN 07/19/2012 Unknown GFR CALC [id number] GFR NON-AA >60 ML/MIN 07/19/2012 Unknown Procedures Procedure Codes Date ROUTINE VENIPUNCTURE CPT-4: 15782 09/30/2019 COMPREHEN METABOLIC PANEL CPT-4: 00474 09/30/2019 COMPLETE CBC W/AUTO DIFF WBC CPT-4: 58711 09/30/2019 ASSAY OF PSA TOTAL CPT-4: 90500 09/30/2019 ASSAY THYROID STIM HORMONE CPT-4: 16267 09/30/2019 LIPID PANEL CPT-4: 86424 09/30/2019 ROUTINE VENIPUNCTURE CPT-4: 12492 09/24/2019 COMPLETE CBC W/AUTO DIFF WBC CPT-4: 01660 09/24/2019 COMPREHEN METABOLIC PANEL CPT-4: 27408 09/24/2019 LIPID PANEL CPT-4: 83651 09/24/2019 ASSAY THYROID STIM HORMONE CPT-4: 13039 09/24/2019 THER/PROPH/DIAG INJ SC/IM CPT-4: 02131 01/13/2019 TRIAMCINOLONE ACET INJ NOS CPT-4: J3301 01/13/2019 DEXAMETHASONE SODIUM PHOS CPT-4: J1100 01/13/2019 ROUTINE VENIPUNCTURE CPT-4: 10475 09/04/2018 COMPREHEN METABOLIC PANEL CPT-4: 60365 09/04/2018 COMPLETE CBC W/AUTO DIFF WBC CPT-4: 00374 09/04/2018 LIPID PANEL CPT-4: 56582 09/04/2018 ASSAY OF PSA TOTAL CPT-4: 54305 09/04/2018 ASSAY THYROID STIM HORMONE CPT-4: 37128 09/04/2018 URINALYSIS NONAUTO W/O SCOPE CPT-4: 71872 05/15/2018 ROUTINE VENIPUNCTURE CPT-4: 56780 11/16/2017 A FRT/VG P CPT-4: 8498247 11/16/2017 A FOOD C P CPT-4: 0143727 11/16/2017 A NUTS PNL CPT-4: 5749942 11/16/2017 THER/PROPH/DIAG INJ SC/IM CPT-4: 23736 11/06/2017 TRIAMCINOLONE ACET INJ NOS CPT-4: J3301 11/06/2017 DEXAMETHASONE SODIUM PHOS CPT-4: J1100 11/06/2017 ROUTINE VENIPUNCTURE CPT-4: 91405 09/03/2017 ASSAY OF FREE THYROXINE CPT-4: 47915 09/03/2017 ASSAY THYROID STIM HORMONE CPT-4: 40212 09/03/2017 ASSAY TRIIODOTHYRONINE (T3) CPT-4: 84253 09/03/2017 ROUTINE VENIPUNCTURE CPT-4: 54207 07/31/2017 COMPREHEN METABOLIC PANEL CPT-4: 60940 07/31/2017 COMPLETE CBC W/AUTO DIFF WBC CPT-4: 32500 07/31/2017 LIPID PANEL CPT-4: 51859 07/31/2017 FLU VACC PRSV FREE INC ANTIG 65 AND OLDER CPT-4: 34991 07/04/2017 ADMIN INFLUENZA VIRUS VAC CPT-4: G0008 07/04/2017 ROUTINE VENIPUNCTURE CPT-4: 10040 02/26/2017 ASSAY THYROID STIM HORMONE CPT-4: 54182 02/26/2017 COMPREHEN METABOLIC PANEL CPT-4: 70716 02/26/2017 COMPLETE CBC W/AUTO DIFF WBC CPT-4: 01437 02/26/2017 LIPID PANEL CPT-4: 41162 02/26/2017 ASSAY OF PSA TOTAL CPT-4: 68517 02/26/2017 FLUZONE, 5ML (Medicare) CPT-4: Q2038 06/28/2016 ADMIN INFLUENZA VIRUS VAC CPT-4: G0008 06/28/2016 ROUTINE VENIPUNCTURE CPT-4: 45520 05/19/2016 ASSAY OF FREE THYROXINE CPT-4: 35860 05/19/2016 ASSAY THYROID STIM HORMONE CPT-4: 35667 05/19/2016 COMPREHEN METABOLIC PANEL CPT-4: 57839 05/19/2016 COMPLETE CBC W/AUTO DIFF WBC CPT-4: 18097 05/19/2016 LIPID PANEL CPT-4: 83422 05/19/2016 VITAMIN B-12 CPT-4: 93219 05/19/2016 PPPS, initial visit CPT-4: G0438 05/10/2016 ROUTINE VENIPUNCTURE CPT-4: 46970 04/05/2015 ASSAY THYROID STIM HORMONE CPT-4: 52637 04/05/2015 COMPREHEN METABOLIC PANEL CPT-4: 62866 04/05/2015 COMPLETE CBC W/AUTO DIFF WBC CPT-4: 38849 04/05/2015 LIPID PANEL CPT-4: 90391 04/05/2015 ASSAY OF PSA TOTAL CPT-4: 33526 04/05/2015 ROUTINE VENIPUNCTURE CPT-4: 10203 07/19/2012 COMPREHEN METABOLIC PANEL CPT-4: 81292 07/19/2012 LIPID PANEL CPT-4: 42018 07/19/2012 ELECTROCARDIOGRAM COMPLETE CPT-4: 58232 03/22/2012 Vital Signs Date Vital 09/24/2019 Blood Pressure 1: 125/72 Code: 8480-6 BMI: 19.8 Code: 28056-6 Heart Rate 1: 88 bpm Height: 5'11" Respiratory Rate: 16 bpm SpO2: 99% Tempera ture: 36.1 (C) / 97.0 (F) Weight: 142 lbs 05/26/2019 Blood Pressure 1: 112/62 Code: 8480-6 Heart Rate 1: 63 bpm SpO2: 99% Temperature: 36.5 (C) / 97.7 (F) Weight: 137 lbs 03/17/2019 Blood Pressure 1: 104/60 Code: 8480-6 Heart Rate 1: 52 bpm Respiratory Rate: 20 bpm SpO2: 97% Temperature: 37.1 (C) / 98.8 (F) We ight: 130 lbs 02/18/2019 Blood Pressure 1: 88/42 Code: 8480-6 Blo od Pressure 2: 84/48 Code: 8480-6 Heart Rate 1: 60 bpm Respiratory Rate: 20 bpm Temperature: 3 6.9 (C) / 98.4 (F) Weight: 130 lbs 01/13/2019 Blood Pressure 1: 110/68 Code: 8480-6 Heart Rate 1: 69 bpm Respiratory Rate: 18 bpm SpO2: 98% Temperature: 36.6 (C) / 97.8 (F) We ight: 131 lbs 09/03/2018 Blood Pressure 1: 122/72 Code: 8480-6 Heart Rate 1: 85 bpm Respiratory Rate: 18 bpm SpO2: 99% Temperature: 36.7 (C) / 98.1 (F) We ight: 135 lbs 08/26/2018 Blood Pressure 1: 116/70 Code: 8480-6 Heart Rate 1: 72 bpm Respiratory Rate: 20 bpm Temperature: 36.8 (C) / 98.2 (F) Weight: 135 lbs 05/15/2018 Blood Pressure 1: 102/60 Code: 8480-6 BMI: 19.1 Code: 32808-4 Heart Rate 1: 82 bpm Height: 5'11" Respiratory Rate: 22 bpm SpO2: 97% Tempera ture: 36.4 (C) / 97.6 (F) Weight: 137 lbs 04/25/2018 Blood Pressure 1: 118/64 Code: 8480-6 BMI: 19.2 Code: 15170-8 Heart Rate 1: 98 bpm Height: 5'11" Respiratory Rate: 20 bpm SpO2: 99% Tempera ture: 36.4 (C) / 97.6 (F) Weight: 138 lbs 11/06/2017 Blood Pressure 1: 108/68 Code: 8480-6 BMI: 18.5 Code: 83127-8 Heart Rate 1: 68 bpm Height: 5'11" Respiratory Rate: 20 bpm SpO2: 96% Tempera ture: 36.8 (C) / 98.2 (F) Weight: 133 lbs 09/03/2017 Blood Pressure 1: 122/64 Code: 8480-6 BMI: 17.6 Code: 77495-1 Heart Rate 1: 90 bpm Height: 5'11" Respiratory Rate: 20 bpm SpO2: 98% Tempera ture: 36.4 (C) / 97.6 (F) Weight: 126 lbs 08/21/2017 Blood Pressure 1: 114/80 Code: 8480-6 BMI: 17.9 Code: 82138-1 Heart Rate 1: 80 bpm Height: 5'11" Respiratory Rate: 20 bpm SpO2: 95% Tempera ture: 36.6 (C) / 97.9 (F) Weight: 128 lbs 02/13/2017 Blood Pressure 1: 122/60 Code: 8480-6 BMI: 18.5 Code: 88868-6 Heart Rate 1: 76 bpm Height: 5'11" Respiratory Rate: 20 bpm SpO2: 96% Tempera ture: 36.9 (C) / 98.4 (F) Weight: 133 lbs 11/23/2016 Blood Pressure 1: 126/70 Code: 8480-6 BMI: 18.5 Code: 34120-6 Heart Rate 1: 100 bpm Height: 5'11" Respiratory Rate: 20 bpm SpO2: 96% Tempera ture: 37.1 (C) / 98.8 (F) Weight: 133 lbs 05/23/2016 Blood Pressure 1: 128/82 Code: 8480-6 BMI: 18.5 Code: 40006-2 Heart Rate 1: 88 bpm Height: 5'11" Respiratory Rate: 20 bpm Temperature: 36 .7 (C) / 98.0 (F) Weight: 133 lbs 05/10/2016 Blood Pressure 1: 146/70 Code: 8480-6 BMI: 18.5 Code: 93808-5 Heart Rate 1: 84 bpm Height: 5'11" Respiratory Rate: 20 bpm Temperature: 36 .7 (C) / 98.1 (F) Weight: 133 lbs 04/01/2015 Blood Pressure 1: 102/60 Code: 8480-6 BMI: 18.5 Code: 72981-4 Heart Rate 1: 64 bpm Height: 5'11" Respiratory Rate: 20 bpm Temperature: 36 .8 (C) / 98.2 (F) Weight: 133 lbs 01/13/2014 Blood Pressure 1: 124/78 Code: 8480-6 BMI: 19.8 Code: 21575-6 Heart Rate 1: 76 bpm Height: 5'11" Respiratory Rate: 20 bpm Temperature: 36 .8 (C) / 98.2 (F) Weight: 142 lbs 04/03/2012 Blood Pressure 1: 106/76 Code: 8480-6 BMI: 20.9 Code: 59731-8 Heart Rate 1: 84 bpm Height: 5'11" Respiratory Rate: 20 bpm Temperature: 36 .7 (C) / 98.0 (F) Weight: 150 lbs 12/20/2011 Blood Pressure 1: 116/60 Code: 8480-6 BMI: 20.1 Code: 03734-6 Heart Rate 1: 80 bpm Height: 5'11" Respiratory Rate: 20 bpm Temperature: 36 .4 (C) / 97.6 (F) Weight: 144 lbs 10/24/2011 Blood Pressure 1: 132/74 Code: 8480-6 BMI: 19.7 Code: 98782-2 Heart Rate 1: 96 bpm Height: 5'11" Respiratory Rate: 20 bpm Temperature: 36 .9 (C) / 98.4 (F) Weight: 141 lbs 03/13/2011 Blood Pressure 1: 108/60 Code: 8480-6 Heart Rate 1: 68 bpm Weight: 136 lbs 02/20/2011 Blood Pressure 1: 90/68 Code: 8480-6 Heart Rate 1: 108 bpm SpO2: 97% Temperature: 36.9 (C) / 98.4 (F) Weight: 134 lbs 02/23/2010 Blood Pressure 1: 112/70 Code: 8480-6 Heart Rate 1: 84 bpm Temperature: 36.7 (C) / 98.0 (F) Weight: 137 lbs 01/12/2010 Blood Pressure 1: 114/60 Code: 8480-6 Heart Rate 1: 80 bpm Temperature: 37.1 (C) / 98.7 (F) Weight: 138 lbs Functional Status No Functional Status data Reason For Visit Reason For Visit Effective Dates Notes Medication Monitoring 12/24/2019 medication follow up for recent refill clonazapam Medication Monitoring 09/24/2019 follow up 05/26/2019 rectal bleeding follow up 03/17/2019 paresthesia 02/18/2019 Dr Ramsey started on metoprolol 25mg 1/2 BID to help with irregular heartbeat nasal allergies 01/13/2019 lab draw 09/04/2018 otalgia 09/03/2018 noticed quite a bit of blood this morning to left ear, constant itching follow up 08/26/2018 hip pain 05/15/2018 Patient has history of lower back/hip pain. He was having an exacerbation of low back pain yesterday and woke up this am with left lower quadrant pain. It is constant and hard to walk at times. Last bowel movement 1 day ago and denies nausea or vomiting. No hx of diverticulitis. follow up 04/25/2018 Patient needs refill of Oxycodone lab draw 11/16/2017 follow up 11/06/2017 follow up 09/03/2017 follow up 08/21/2017 lab draw 07/31/2017 injection(s) 07/04/2017 Flu Vaccine lab draw 02/26/2017 follow up 02/13/2017 dyskinesia or tremor 11/23/2016 injection(s) 06/28/2016 Influenza follow up 05/23/2016 ER fwup lab draw 05/19/2016 high blood pressure 05/10/2016 lab draw 04/05/2015 follow up 04/01/2015 follow up 01/13/2014 [facility] from Justin Palacio'justin in November 2012 lab draw 07/19/2012 follow up 04/03/2012 S/P stent placement in LAD, changed effient to plavix hip pain 12/20/2011 dyskinesia or tremor 10/24/2011 follow up 03/13/2011 started on effient, zocor, and atenolol follow up 02/20/2011 [facility]/Dr Christian rojas follow up 02/23/2010 [facility], appt with Dr Bajwa 03/22/10 insomnia 01/12/2010 problems falling and staying asleep, takes nortriptyline Encounters Encounter Performer Location Codes Date ([id number]) OFFICE/OUTPATIENT VISIT EST Diagnosis: Essential tremor[ICD10: G25.0] Vonnie Mathews [facility] CPT-4: 57964 12/24/2019 ([id number]) NURSE/OUTPATIENT VISIT EST Diagnosis: Essential (primary) hypertension[ICD10: I10] Diagnosis: Mixed hyperlipidemia[ICD10: E78.2] Diagnosis: Encounter for screening for malignant neoplasm of prostate[ICD10: Z12.5] Vonnie MATHEWS [employer] CPT-4: 53249 09/30/2019 ([id number]) OFFICE/OUTPATIENT VISIT EST Diagnosis: Encounter for therapeutic drug level monitoring[ICD10: Z51.81] Diagnosis: Essential tremor[ICD10: G25.0] Verna James MATHEWS [facility] CPT-4: 15004 09/24/2019 ([id number]) OFFICE/OUTPATIENT VISIT EST Diagnosis: Noninfective gastroenteritis and colitis, unspecified[ICD10: K52.9] Diagnosis: Hemorrhage of anus and rectum[ICD10: K62.5] Vonnie MATHEWS DO [facility] CPT-4: 24223 05/26/2019 ([id number]) OFFICE/OUTPATIENT VISIT EST Diagnosis: Other intervertebral disc degeneration, 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] Diagnosis: Other forms of dyspnea[ICD10: R06.09] Vonnie MATHEWS [facility] CPT-4: 49950 03/17/2019 OFFICE/OUTPATIENT VISIT EST Diagnosis: Other intervertebral disc degeneration, 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] Diagnosis: Other symptoms and signs involving the musculoskeletal system[ICD10: R29.898] [facility]PT-[facility]: 83900 02/18/2019 ([id number]) OFFICE/OUTPATIENT VISIT EST Diagnosis: Other allergic rhinitis[ICD10: J30.89] Akilah Lopez DOLLY [facility] CPT-4: 01979 01/13/2019 ([id number]) NURSE/OUTPATIENT VISIT EST Diagnosis: Mixed hyperlipidemia[ICD10: E78.2] Diagnosis: Essential (primary) hypertension[ICD10: I10] Diagnosis: Encounter for screening for malignant neoplasm of prostate[ICD10: Z12.5] Diagnosis: Encounter for general adult medical examination with abnormal findings[ICD10: Z00.01] Diagnosis: Benign prostatic hyperplasia without lower urinary tract symptoms[ICD10: N40.0] Vonnie MATHEWS [facility] CPT-4: 21744 09/04/2018 ([id number]) OFFICE/OUTPATIENT VISIT EST Diagnosis: Otorrhea, left ear[ICD10: H92.12] Diagnosis: Impacted cerumen, right ear[ICD10: H61.21] [facility]a [facility] CPT-[facility]: 28463 09/03/2018 ([id number]) OFFICE/OUTPATIENT VISIT EST Diagnosis: Other intervertebral disc degeneration, 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] Diagnosis: Primary insomnia[ICD10: F51.01] Diagnosis: Essential tremor[ICD10: G25.0] Vonnie COLMENARES Justin BOWMAN [employer] [facility] CPT-4: 87709 08/26/2018 ([id number]) OFFICE/OUTPATIENT VISIT EST Diagnosis: Pelvic and perineal pain[ICD10: R10.2] Verna MATHEWS [employer] [facility] CPT-4: 70435 05/15/2018 ([id number]) OFFICE/OUTPATIENT VISIT EST Diagnosis: Encounter for therapeutic drug level monitoring[ICD10: Z51.81] Diagnosis: Acute sinusitis, unspecified[ICD10: J01.90] Diagnosis: Other intervertebral disc degeneration, 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] Diagnosis: Essential tremor[ICD10: G25.0] Diagnosis: Raynaud's syndrome without gangrene[ICD10: I73.00] Verna ASCENCIOLINE JustinKim COLBY [employer] [facility] CPT-4: 51815 04/25/2018 ([id number]) OFFICE/OUTPATIENT VISIT EST Diagnosis: Idiopathic urticaria[ICD10: L50.1] Diagnosis: Other urticaria[ICD10: L50.8] Vonnie COLMENARES Denia BOWMAN [employer] [facility] CPT-4: 20750 11/16/2017 ([id number]) OFFICE/OUTPATIENT VISIT EST Diagnosis: Idiopathic urticaria[ICD10: L50.1] Diagnosis: Other urticaria[ICD10: L50.8] Diagnosis: Other forms of dyspnea[ICD10: R06.09] Vonnie RODGERS JustinKim COLBY [employer] [facility] CPT-4: 59110 11/06/2017 ([id number]) OFFICE/OUTPATIENT VISIT EST Diagnosis: Dyspnea, unspecified[ICD10: R06.00] Diagnosis: Abnormal weight loss[ICD10: R63.4] Vonnie LUCIA Denia BOWMAN [employer] [facility] CPT-4: 91777 09/03/2017 ([id number]) OFFICE/OUTPATIENT VISIT EST 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] Diagnosis: Mixed hyperlipidemia[ICD10: E78.2] Diagnosis: Essential tremor[ICD10: G25.0] Diagnosis: Essential (primary) hypertension[ICD10: I10] Diagnosis: Abnormal weight loss[ICD10: R63.4] Vonnie Mathews RAFAT REA Denia MATHEWS [employer] [facility] CPT-4: 66153 08/21/2017 ([id number]) OFFICE/OUTPATIENT VISIT EST Diagnosis: Mixed hyperlipidemia[ICD10: E78.2] Diagnosis: Essential (primary) hypertension[ICD10: I10] 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] Diagnosis: Anemia, unspecified[ICD10: D64.9] Vonnie Romulojuan miguel Galarza Denia MATHEWS [facility] CPT-4: 75574 07/31/2017 ([id number]) OFFICE/OUTPATIENT VISIT EST Diagnosis: FLU VACCINE[ICD10: Z23] Vonnie GERMAN [facility] CPT-4: 62502 07/04/2017 ([id number]) OFFICE/OUTPATIENT VISIT EST Diagnosis: Mixed hyperlipidemia[ICD10: E78.2] Diagnosis: Essential tremor[ICD10: G25.0] 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] Diagnosis: Essential (primary) hypertension[ICD10: I10] Diagnosis: Supraventricular tachycardia[ICD10: I47.1] Diagnosis: Other fatigue[ICD10: R53.83] Diagnosis: Encounter for screening for malignant neoplasm of prostate[ICD10: Z12.5] Vonnie Romulojuan miguel VONNIE Denia MATHEWS [facility] CPT-4: 25600 02/26/2017 ([id number]) OFFICE/OUTPATIENT VISIT EST Diagnosis: Essential tremor[ICD10: G25.0] Vonnie MATHEWS [facility] CPT-4: 70268 02/13/2017 ([id number]) OFFICE/OUTPATIENT VISIT EST Diagnosis: Essential tremor[ICD10: G25.0] Diagnosis: Other intervertebral disc degeneration, 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] Vonnie Romulojuan miguel COLMENARES Denia MATHEWS [facility] CPT-4: 15561 11/23/2016 ([id number]) OFFICE/OUTPATIENT VISIT EST Diagnosis: FLU VACCINE[ICD10: Z23] Vonnie GERMAN [facility] CPT-4: 08825 06/28/2016 OFFICE/OUTPATIENT VISIT EST Diagnosis: Open bite of right hand, initial encounter[ICD10: S61.451A] Vonnie MATHEWS DO [facility] CPT-4: 13198 05/23/2016 ([id number]) OFFICE/OUTPATIENT VISIT EST Diagnosis: Encounter for general adult medical examination with abnormal findings[ICD10: Z00.01] Diagnosis: Mixed hyperlipidemia[ICD10: E78.2] Diagnosis: Essential tremor[ICD10: G25.0] 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] Vonnie MATHEWS DO [facility] CPT-4: 24550 05/19/2016 ([id number]) OFFICE/OUTPATIENT VISIT EST Diagnosis: HYPERLIPIDEMIA NEC/NOS[ICD9: 272.4] Diagnosis: CAD[ICD9: 414.00] Diagnosis: TACHYCARDIA[ICD9: 785.0] Diagnosis: HYPERTENSION[ICD9: 401.9] Diagnosis: Routine medical exam[ICD9: V70.0] Vonnie BOWMAN [employer] [facility] CPT-4: 49714 04/05/2015 ([id number]) OFFICE/OUTPATIENT VISIT EST Diagnosis: HYPERTENSION[ICD9: 401.9] Diagnosis: HYPERLIPIDEMIA NEC/NOS[ICD9: 272.4] Diagnosis: CAD[ICD9: 414.00] Diagnosis: LUMB/LUMBOSAC DISC DEGEN[ICD9: 722.52] Vonnie BOWMAN [employer] [facility] CPT-4: 02023 04/01/2015 ([id number]) OFFICE/OUTPATIENT VISIT EST Diagnosis: CHEST PAIN NOS[ICD9: 786.50] Diagnosis: PAIN IN THORACIC SPINE[ICD9: 724.1] Diagnosis: HYPERTENSION[ICD9: 401.9] Diagnosis: GERD[ICD9: 530.81] Vonnie BOWMAN [employer] [facility] CPT-4: 40593 01/13/2014 ([id number]) OFFICE/OUTPATIENT VISIT EST Diagnosis: CAD[ICD9: 414.00] Diagnosis: HYPERLIPIDEMIA NEC/NOS[ICD9: 272.4] Vonniejuan jose ANNA SKim ORENDER DO [facility] CPT-4: 10200 07/19/2012 ([id number]) OFFICE/OUTPATIENT VISIT EST Diagnosis: CAD[ICD9: 414.00] Diagnosis: INSOMNIA NOS[ICD9: 780.52] Vonnie LAIQUEJUAN JOSE Loza OR YULISA DO [facility] CPT-4: 40741 04/03/2012 ([id number]) OFFICE/OUTPATIENT VISIT EST Diagnosis: CHEST PAIN NOS[ICD9: 786.50] Diagnosis: CAD[ICD9: 414.00] Vonnie Loza ORENDER DO [facility] CPT-4: 00221 03/22/2012 ([id number]) OFFICE/OUTPATIENT VISIT EST Diagnosis: PROSTATITIS[ICD9: 601.9] Diagnosis: TREMOR NEC[ICD9: 333.1] Vonnie ASCENCIOLINE Denia OREND ER DO [facility] CPT-4: 45224 12/20/2011 OFFICE/OUTPATIENT VISIT EST Diagnosis: TREMOR NEC[ICD9: 333.1] Diagnosis: TACHYCARDIA[ICD9: 785.0] Diagnosis: HYPERTENSION[ICD9: 401.9] Vonnie SCHULTZ NDER DO [facility] CPT-4: 33607 10/24/2011 OFFICE/OUTPATIENT VISIT EST Vonnie SCHULTZ NDER DO [facility] CPT- 4: 63751 03/13/2011 ([id number]) OFFICE/OUTPATIENT VISIT EST Vonnie GASPAR SKim ORENDER DO [facility] CPT-4: 48282 02/20/2011 ([id number]) OFFICE/OUTPATIENT VISIT, EST Vonnie NELSON SKim ORENDER DO [facility] CPT-4: 63953 02/23/2010 ([id number]) OFFICE/OUTPATIENT VISIT, EST Vonnie NELSON S. ORENDER DO [facility] CPT-4: 36497 01/12/2010 Plan of Care Planned Activity Notes Codes Status Date Visit Diagnosis Plan: Essential tremor Discussion: Sta ble on clonazepam Fwup in 3mos with fasting lab ICD-9 : 333.1 ICD-10 : G25.0 12/24/2019 Appointment: Vonnie Mathews WPtel: [facility] US TELEMEDICINE 12/24/2019 Patient Education: Cathryn HFA- [employer] Coupon [phone] [email or web address] Completed 12/24/2019 Appointment: Vonnie Mathews WPtel: [facility] US LAB 09/30/2019 Appointment: Verna Ramirez [address] [place] [address] RESCHEDULED 09/25/2019 Visit Diagnosis Plan: Encounter for therapeutic drug l evel monitoring Discussion: UDS and contract completed today. ICD-9 : V58.83 ICD-10 : Z51.81 09/24/2019 Visit Diagnosis Plan: Essential tremor Discussion: sta ble on clonazepam. educated patient about purchasing a large, heavy pen that will allow him to improve his writing. instructed him that pens can be purchased on [employer]. ICD-9 : 333.1 ICD-10 : G25.0 09/24/2019 Appointment: Verna Ramirez [address] [place] [address] MEDICATION REVIEW 09/24/2019 Visit Diagnosis Plan: Hemorrhage of anus and rectum Di scussion: Update colonoscopy ICD-9 : 569.3 ICD-10 : K62.5 05/26/2019 Visit Diagnosis Plan: Noninfective gastroenteritis and colitis, unspecified Discussion: Flagyl [place] diet Update colonoscopy ICD-9 : 558.9 ICD-10 : K52.9 05/26/2019 Appointment: Vonnie Mathews WPtel: [facility] [place] [id number] [place] record request faxed 05/23; ANGELINA with medical records 05/26/19 Hospital Follow Up 05/26/2019 Care Plan: Referral Order SNOMED-CT : [id number] Pending 05/26/2019 Visit Diagnosis Plan: Other intervertebral disc degene ration, lumbar region Discussion: Increase lyrica to 150mg po q HS Continue stretches from PT Has appointment with [facility] on April 12 Fwup after that appointment ICD-9 : 722.52 ICD-10 : M51.36 03/17/2019 Appointment: Vonnie Mathewstel: [address] [place] [address] US FOLLOW UP 03/17/2019 Visit Diagnosis Plan: Other symptoms and signs involving the musculoskeletal system Discussion: Check CT of head due to at o nset of this had PEÑALOZA, confusion and right sided numbness Has had vascular workup including arterial dopplers of LEs as well as carotid dopplers ICD-9 : 729.89 ICD-10 : R29.898 02/18/2019 Visit Diagnosis Plan: Other intervertebral disc degene ration, lumbar region Discussion: Start PT Referral for epidural Will start lyrica 75mg po q HS once CT scan results obtained [facility] Follow Up: 3 weeks ICD-9 : 722.52 ICD-10 : M51.36 02/18/2019 Appointment: Vonnie Mathewstel: [address] [place] [address] [place] FOLLOW UP 02/18/2019 Appointment: Vonnie Mathewstel: [address] [place] [address] [place] CANCELED 02/18/2019 Visit Diagnosis Plan: Other allergic rhinitis Discussi on: Steroid injection (40 and 4) patient tolerated well. Advise oral antihistamine such as claritin every day for one month. May continue if providing relief from allergies. Also add nasal steroid such as Flonase. Patient states understanding. Will let us know if not feeling better. ICD-9 : 477.8 ICD-10 : J30.89 01/13/2019 Appointment: Akilah Lopez [address] [id number] [place] Due for annual wellness ACUTE ILLNESS 01/14/20 Appointment: Vonnie Mathewstel: [address] [place], [place] [address] US LAB 09/04/2018 Visit Diagnosis Plan: Otorrhea, left ear Discussion: c ipro drops prescribed for symptom management. instructed to avoid qtips to prevent worsening issues. call with new or worsening symptoms. ICD-9 : 388.60 ICD-10 : H92.12 09/03/2018 Visit Diagnosis Plan: Impacted cerumen, right ear Disc ussion: instructed to purchase OTC debrox and use as directed to soften cerumen. call office if no improvement. ICD-9 : 380.4 ICD-10 : H61.21 09/03/2018 Appointment: Verna Ramirez [address] [place] [address] ACUTE ILLNESS 09/03/2018 Visit Diagnosis Plan: Primary insomnia Discussion: Sta ble using ambien prn--no side effects per patient or ICD-9 : 780.52 ICD-10 : F51.01 08/26/2018 Visit Diagnosis Plan: Other intervertebral disc degene ration, lumbar region Discussion: Stable using oxycodone prn Follow Up: 3 months ICD-9 : 722.52 ICD-10 : M51.36 08/26/2018 Visit Diagnosis Plan: Essential tremor Discussion: Inc rease primidone to 100mg q AM and 50mg q HS for rest of month then may increase to 100mg po BID if needed Will return later this week fasting for lab ICD-9 : 333.1 ICD-10 : G25.0 08/26/2018 Appointment: Vonnie Mathews WPtel: [phone] [facility] [place] FOLLOW UP 08/26/2018 Visit Diagnosis Plan: Pelvic and perineal pain Discuss ion: upon further examination and questioning, pain is located in inguinal area on left side. no tenderness to abdomen with palpation. patient sent for ultrasound of pelvis due to clinical s/s and severity of pain to rule out testicular torsion or other immediate concern. will review results and notify patient with any changes needed. instructed to rest throughout the day and take pain medication prn. ICD-9 : 625.9 ICD-10 : R10.2 05/15/2018 Appointment: Verna Ramirez [address] [place], [place] [id number] ACUTE ILLNESS 05/15/2018 Patient Education: Patient Medication Summary Completed 05/15/2018 Care Plan: US EXAM PELVIC COMPLETE scrotal LOINC : [id number] Pending 05/15/2018 Visit Diagnosis Plan: Other intervertebral disc degene ration, lumbar region Discussion: stable on oxycodone. continue with current dose. ICD-9 : 722.52 ICD-10 : M51.36 04/25/2018 Visit Diagnosis Plan: Raynaud's syndrome without gangr marito Discussion: discussed with patient the disease and causes. handout with education given to patient. informed him to wear gloves during the cold months and to keep fingers moisturized to prevent cracking and sores which may take time to heal. if worsening symptoms or new concerns, call clinic. ICD-9 : 443.0 ICD-10 : I73.00 04/25/2018 Visit Diagnosis Plan: Essential tremor Discussion: sta ble on current medications. ICD-9 : 333.1 ICD-10 : G25.0 04/25/2018 Visit Diagnosis Plan: Encounter for therapeutic drug l evel monitoring Discussion: urine drug screen obtained today ICD-9 : V58.83 ICD-10 : Z51.81 04/25/2018 Visit Diagnosis Plan: Acute sinusitis, unspecified Dis cussion: medrol dose pack prescribed for patient. singulair started with instructions on use. informed him to call office if no improvement with medication but informed him to stay on singulair daily to help with allergy relief and chronic lung disease. ICD-9 : 461.9 ICD-10 : J01.90 04/25/2018 Appointment: Verna Ramirez [address] [place] [address] MEDICATION REVIEW 04/25/2018 Patient Education: Patient Medication Summary Completed 04/25/2018 Appointment: Vonnie Mathews WPtel: [facility] [place] [id number] 11/16/2017 Patient Education: Patient Medication Summary Completed 11/16/2017 Visit Diagnosis Plan: Other forms of dyspnea Discussio n: Send copy of overnight pulse ox to pulmonology but only desated 1minute and 24seconds ICD-9 : 786.09 ICD-10 : R06.09 11/06/2017 Visit Diagnosis Plan: Idiopathic urticaria Discussion: Kenalog/Dexamethasone now and Prednisone and benadryl and notify if worsening, allergy lab testing after symptoms improved Discussion: Kenalog/Dexamethasone now and Prednisone and benadryl and notify if worsening ICD-9 : 708.1 ICD-10 : L50.1 11/06/2017 Appointment: Vonnie Mathews WPtel: [address] [place] [address] FOLLOW UP 11/06/2017 Patient Education: Patient Medication Summary Completed 11/06/2017 Referral: John Das WPtel: Referral Initiated 10/15/2017 Visit Diagnosis Plan: Dyspnea, unspecified Discussion: Check PFTs May need CT scan of chest if above normal and with ongoing dyspnea/weight loss ICD-9 : 786.09 ICD-10 : R06.00 09/03/2017 Visit Diagnosis Plan: Abnormal weight loss Discussion: Check TSh, Free T4, TT3 ICD-9 : 783.21 ICD-10 : R63.4 09/03/2017 Appointment: Vonnie Mathews WPtel: [address] [place] [address] US FOLLOW UP 09/03/2017 Patient Education: Patient Medication Summary Completed 09/03/2017 Visit Diagnosis Plan: Mixed hyperlipidemia Discussion: Lab discussed ICD-9 : 272.4 ICD-10 : E78.2 08/21/2017 Visit Diagnosis Plan: Essential tremor Discussion: Sta ble on Primidone ICD-9 : 333.1 ICD-10 : G25.0 08/21/2017 Visit Diagnosis Plan: 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 Discussion: Sees Cardiology in 2 days To ER if CP returns before ICD-9 : 414.00 ICD-10 : I25.10 08/21/2017 Visit Diagnosis Plan: Abnormal weight loss Discussion: Start daily protein shake or smoothie ICD-9 : 783.21 ICD-10 : R63.4 08/21/2017 Visit Diagnosis Plan: Essential (primary) hypertension Discussion: Stable ICD-9 : 401.9 ICD-10 : I10 08/21/2017 Appointment: Vonnie Mathewstel: [address] [place], [place] [phone] FOLLOW UP 08/21/2017 Patient Education: Patient Medication Summary Completed 08/21/2017 Appointment: Vonnie Mathewstel: [address] [place], [place] [id number] [place] LAB 07/31/2017 Patient Education: Patient Medication Summary Completed 07/31/2017 Appointment: Vonnie Mathews WPtel: [address] [place], [place] [phone] [place] INJECTION 07/04/2017 Patient Education: Patient Medication Summary Completed 07/04/2017 Appointment: Vonnie Mathews WPtel: [address] [place], [place] [phone] US LAB 02/26/2017 Patient Education: Patient Medication Summary Completed 02/26/2017 Visit Diagnosis Plan: Essential tremor Discussion: Con tinue clonazepam at 1mg q AM and primidone 50mg q HS Follow Up: 3 months ICD-9 : 333.1 ICD-10 : G25.0 02/13/2017 Appointment: Vonnie Mathews WPtel: [address] [place] [address] 02/08 confirmed~sl FOLLOW UP 02/13/2017 Patient Education: Patient Medication Summary Completed 02/13/2017 Appointment: Vonnie Mathews WPtel: [address] [place] [address] RESCHEDULED 01/23/2017 Visit Diagnosis Plan: Other intervertebral disc degene ration, lumbar region Discussion: DC oxycodone Tramadol 50mg 1-2 po TID prn pain Follow Up: 2 months ICD-9 : 722.52 ICD-10 : M51.36 11/23/2016 Visit Diagnosis Plan: Essential tremor Discussion: Inc rease clonazepam to 1mg po BID Discussed sinemet ICD-9 : 333.1 ICD-10 : G25.0 11/23/2016 Appointment: Vonnie Mathews WPtel: [address] [place], [place] [phone] 11/22 confirmed~sl MEDICATION REVIEW 11/23/2016 Patient Education: Patient Medication Summary Completed 11/23/2016 Patient Education: [facility] - [employer] - Clonazepam - 18-64 - Dynamic Portal ID Completed 11/23/2016 Appointment: Vonnie Mathews WPtel: [address] [place] [address] INJECTION 06/28/2016 Patient Education: Patient Medication Summary Completed 06/28/2016 Referral: Fernando Day WPtel: #1 [facility] Shilpa Lopez [id number] [place] [id number] per Maribeth, the patient is sched uled on 05/29/2016 at 1:20pm. Notes and demographics will be faxed once the office note is completed. The patient is informed. -sp Initiated 05/29/2016 Visit Plan: Finish all of augmentin Fini sh rabies shots as per schedule given at ER Discussed that could have some mild tenosynovitis involvement but will observe and see how does with ongoing abx as patient is on plavix so can't take NSAIDs Has been using ice prn Notify if worsening 05/23/2016 Appointment: Vonnie Mathews WPtel: [address] [place] [address] ER Follow UP 05/23/2016 Patient Education: Patient Medication Summary Completed 05/23/2016 Appointment: Vonnie Mathews WPtel: [address] [place] [address] LAB 05/19/2016 Patient Education: Patient Medication Summary Completed 05/19/2016 Visit Plan: Change coreg to 3.125mg BID Trial of low dose clonazepam 0.5mg BID for tremors Fwup with Dr. Ramsey as scheduled Return for fasting lab--CBC, CMP, TSH, free T4, Lipids, PSA, B12 Proceed with Colonoscopy 05/10/2016 Appointment: Vonnie Mathews WPtel: [address] [place] [address] 05/09 confirmed~sl Annual Well Visit 05/10/2016 Patient Education: Patient Medication Summary Completed 05/10/2016 Care Plan: Referral Order SNOMED-CT : [id number] Pending 05/10/2016 Appointment: Vonnie Mathews WPtel: [address] [place], [place] [phone] [place] Rescheduled for 05/10/16 at 2PM~lb RESCHEDULED 04/26/2016 Referral: Danilo Ramsey WPtel: [phone] [id number] [place] Referral Initiated 04/29/2015 Appointment: Vonnei Mathews WPtel: [address] [place], [place] [phone] [place] LAB 04/05/2015 Patient Education: Patient Medication Summary Completed 04/05/2015 Visit Plan: Return in AM for fasting lab --CMP, lipids, CBC, TSH, PSA Change hydrocodone to oxycodone 7.5/325mg 1-2 po TID Schedule with cardiology Needs colonoscopy once cardiology evaluation complete Will need to restart chol meds after lab Recheck 1mo on pain meds 04/01/2015 Appointment: Vonnie Mathews WPtel: [address] [place] [address] 03/31 confirmed -mf PHYSICAL 04/01/2015 Patient Education: Patient Medication Summary Completed 04/01/2015 Appointment: Vonnie Mathews WPtel: [address] [place] [address] Annual Well Visit 09/23/2014 Visit Plan: Continue protonix Pt has fwu p with Card next month Rec chiropracter or PT for ribs/thoracics being out and could be contributing to chest pain 01/13/2014 Appointment: Vonnie Mathews WPtel: [address] [place], [place] [phone] [place] FOLLOW UP 01/13/2014 Patient Education: Patient Medication Summary Completed 01/13/2014 Appointment: Ariella Mcnally WPtel: [address] [place] [address] [place] FOLLOW UP 12/12/2013 Appointment: Malika Cárdenas WPtel: [address] [place] [address] PHYSICAL 12/12/2013 Appointment: Vonnie Mathews WPtel: [address] [place] [address] ACUTE ILLNESS 02/20/2013 Appointment: Vonnie Mathews WPtel: [address] [place] [address] LAB 07/19/2012 Patient Education: Patient Medication Summary Completed 07/19/2012 Appointment: Vonnie Mathews WPtel: [address] [place] [address] FOLLOW UP 04/03/2012 Patient Education: Patient Medication Summary Completed 04/03/2012 Appointment: Vonnie Mathews WPtel: [address] [place] [address] ACUTE ILLNESS 03/22/2012 Patient Education: Patient Medication Summary Completed 03/22/2012 Appointment: Vonnie Mathews WPtel: [address] [place] [address] FOLLOW UP 12/26/2011 Visit Plan: Add Cipro Continue current m eds 12/20/2011 Appointment: Vonnie Mathewstel: [address] [place] [address] ACUTE ILLNESS 12/20/2011 Patient Education: Patient Medication Summary Completed 12/20/2011 Visit Plan: Change neurontin to Cymbalta 30mg for 1wk then 60mg QD Add Propranolol for tremor 10/24/2011 Appointment: Vonnie Mathews WPtel: [address] [place] [address] ACUTE ILLNESS 10/24/2011 Appointment: Vonnie Mathews WPtel: [address] [place] [address] ACUTE ILLNESS 10/24/2011 Patient Education: Patient Medication Summary Completed 10/24/2011 Visit Plan: Continue current meds and fw up with Card as scheduled 03/13/2011 Appointment: Vonnie Mathews WPtel: [address] [place], [place] [phone] FOLLOW UP 03/13/2011 Patient Education: Patient Medication Summary Completed 03/13/2011 Visit Plan: Will obtain all records and lab from [facility] Discussed will likely need heart cath which pt states that Card did talk to him about in the hospital 02/20/2011 Appointment: Vonnie Mathews WPtel: [address] [place], [place] [phone] ACUTE ILLNESS 02/20/2011 Patient Education: Patient Medication Summary Completed 02/20/2011 Visit Plan: Cont Pepcid and Prilosec See Card for cardiac cath. 02/23/2010 Appointment: Vonnie Mathews WPtel: [address] [place], [place] [phone] FOLLOW UP 02/23/2010 Patient Education: Patient Medication Summary Completed 02/23/2010 Visit Plan: Increase Pamelor to 75mg qhs Increase Hydrocodone to 10/325mg 1-2 po q6 prn 01/12/2010 Appointment: Vonnie Mathews WPtel: [address] [place], [place] [phone] ACUTE ILLNESS 01/12/2010 Patient Education: Patient Medication Summary Completed 01/12/2010 Referral: Iván Pardo WPtel: [facility] [address] [place] Referral Initiated Referral: Fernando Day WPtel: #1 [facility] [place] Referral Completed Referral: Fernando Day WPtel: #1 [facility] [place] Referral Appointment Requested Instructions Comment . Finish all of augmentin Finish rabies shots as per schedule given at ER Discussed that could have some mild tenosynovitis involvement but will observe and see how does with ongoing abx as patient is on plavix so can't take NSAIDs Has been using ice prn Notify if worsening . Change coreg to 3.125mg BID Trial of low dose clonazepam 0.5mg BID for tremors Fwup with Dr. Ramsey as scheduled Return for fasting lab--CBC, CMP, TSH, free T4, Lipids, PSA, B12 Proceed with Colonoscopy . Return in AM for fasting lab--CMP, lip ids, CBC, TSH, PSA Change hydrocodone to oxycodone 7.5/325mg 1-2 po TID Schedule with cardiology Needs colonoscopy once cardiology evaluation complete Will need to restart chol meds after lab Recheck 1mo on pain meds . Continue protonix Pt has fwup with Card next month Rec chiropracter or PT for ribs/thoracics being out and could be contributing to chest pain . Add Cipro Continue current meds . Change neurontin to Cymbalta 30mg for 1wk then 60mg QD Add Propranolol for tremor . Continue current meds and fwup with Ca rd as scheduled . Will obtain all records and lab from Sarah hayesgail Discussed will likely need heart cath which pt states that Card did talk to him about in the hospital . Cont Pepcid and Prilosec See Card for cardiac cath. . Increase Pamelor to 75mg qhs Increase Hydrocodone to 10/325mg 1-2 po q6 prn Medical Equipment No Medical Equipment data Health Concerns Section Health Concerns data not found Goals Section Goals data not found Interventions Section Interventions data not found Health Status Evaluations/Outcomes Section Health Status Evaluations/Outcomes data not found Advance Directives No Advance Directive data
--- OUTSIDE RECORDS SUMMARY | 2020-02-10 08:06 | XMS REPORT | CCD ---
Author Author Nash Mathews D.O. Organization [facility] Address [address] [place] [address] Phone Care Team Providers Care Reservations Manager Name Role Phone Vonnie Mathews D.O., PP Unavailable CCM Unavailable Summary Purpose Interface Exchange Insurance Providers Payer name Policy type / Coverage type Covered alliance party ID Effective Begin Date Effective End Date [employer] MEDICARE Medicare Part B [id number] 2019 Unknown Family History Family History data not found Social History Social History Element Codes Description Effective Dates Marital status Unknown 10/24/[address]: 911695795 Nonsmoker 03/29/2011 Allergies, Adverse Reactions, Alerts Substance [...] R63.4 08/21/2017 Active 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: [...] Start Date Stop Date Status Fill Instructions trazodone 50 mg tablet RxNorm: 814852 1-2 Tablet(s) Ora l QPM as needed for sleep 01/14/2020 01/14/2020 Inactive trazodone 50 mg tablet RxNorm: 290122 1-2 Tablet(s) Ora l QPM as needed for sleep 01/14/2020 01/13/2020 Inactive Lyrica 75 mg capsule RxNorm: 010849 1 Capsule(s) Oral every nig ht at bedtime 12/25/2019 03/23/2020 Active ProAir HFA 90 mcg/actuation aerosol inhaler RxNorm: 991218 2 Puff(s) Inhalation four times a day as needed 12/25/2019 02/13/2020 Active Pat ient requests 90 days supply metoprolol tartrate 25 mg tablet RxNorm: 648246 /2 Tab let(s) Oral two times a day 12/25/2019 06/22/2020 Active pravastatin 20 mg tablet RxNorm: 132173 1 Tablet(s) Oral QD 020 06/22/2020 Active Zyrtec 10 mg capsule RxNorm: 3359120 1 Capsule(s) Oral QD 0 No Stop Date Active ProAir HFA 90 mcg/actuation aerosol inhaler RxNorm: 210941 2 Puff(s) Inhalation four times a day as needed 12/24/2019 12/23/2019 Inactive ProAir HFA 90 mcg/actuation aerosol inhaler RxNorm: 189500 INHALE 2 PUFFS BY MOUTH FOUR TIMES DAILY NEEDED 12/24/2019 12/24/2019 Inactive Patient requests 90 days supply clonazepam 1 mg tablet RxNorm: 420067 TAKE 1 TABLET BY MOUTH EV SUSAN MORNING 12/19/2019 01/17/2020 Active clonazepam 1 mg tablet RxNorm: 171888 TAKE 1 TABLET BY MOUTH EV SUSAN MORNING 11/17/2019 12/16/2019 Inactive Tamiflu 75 mg capsule RxNorm: 480545 1 Capsule(s) Oral QD 11/03/2019 11/12/2019 Inactive Tamiflu 75 mg capsule RxNorm: 275047 1 Capsule(s) Oral QD 11/03/2019 11/02/2019 Inactive clonazepam 1 mg tablet RxNorm: 395489 TAKE 1 TABLET BY MOUTH EV SUSAN MORNING 10/16/2019 11/13/2019 Inactive pravastatin 20 mg tablet RxNorm: 321478 1 Tablet(s) Oral QD 020 12/24/2019 Inactive Singulair 10 mg tablet RxNorm: 704582 TAKE 1 TABLET BY MOUTH EV SUSAN DAY 10/10/2019 12/24/2019 Inactive Lyrica 75 mg capsule RxNorm: 896991 1 Capsule(s) Oral every nig ht at bedtime 10/09/2019 12/24/2019 Inactive clonazepam 1 mg tablet RxNorm: 608553 TAKE 1 TABLET BY MOUTH EV SUSAN AM 09/23/2019 10/15/2019 Inactive clonazepam 1 mg tablet RxNorm: 099160 TAKE 1 TABLET BY MOUTH EV SUSAN AM 08/21/2019 09/22/2019 Inactive Singulair 10 mg tablet RxNorm: 647904 TABLET(S) 1 TABLET(S) PO QD 1 10/09/2019 Inactive Flagyl 500 mg tablet RxNorm: 618487 1 Tablet(s) PO TID 05/26/2019 Inactive clonazepam 1 mg tablet RxNorm: 670343 TAKE 1 TABLET BY MOUTH EV SUSAN MORNING 05/23/2019 06/21/2019 Inactive pravastatin 20 mg tablet RxNorm: 190924 1 Tablet(s) PO QD 04/14/2019 10/09/2019 Inactive Needs updated fasting labs Singulair 10 mg tablet RxNorm: 701015 Tablet(s) 1 TABLET(S) PO QD 0 04/14/2019 07/12/2019 Inactive clonazepam 1 mg tablet RxNorm: 698868 1 Tablet(s) PO QAM 02/21/2019 0 05/23/2019 Inactive Bevespi Aerosphere 9 mcg-4.8 mcg HFA aerosol inhaler RxNorm: 0120663 2 Puff(s) INH BID 02/19/2019 12/23/2019 Inactive ProAir HFA 90 mcg/actuation aerosol inhaler RxNorm: 301631 2 Puff(s) INH Q4H as needed 02/19/2019 09/24/2019 Inactive metoprolol tartrate 25 mg tablet RxNorm: 358366 1/2 Tablet(s) PO BI D 02/18/2019 05/18/2019 Inactive pravastatin 20 mg tablet RxNorm: 862447 1 Tablet(s) PO QD Needs updated fasting labs 01/13/2019 04/14/2019 Inactive Needs updated fa sting labs Singulair 10 mg tablet RxNorm: 377829 Tablet(s) 1 TABLET(S) PO QD 0 01/13/2019 04/12/2019 Inactive Plavix 75 mg tablet RxNorm: 594811 Tablet(s) 1 TABLET(S) PO QD 04/04/201906/20/2019 Inactive [SAVINGS FOR NON-COVERED SHANDA GS -- BIN:605992, PCN: ASPROD1, Group: XXXXX, ID# [id number], Questions: . THIS IS NOT INSURANCE.] Singulair 10 mg tablet RxNorm: 524592 1 TABLET(S) PO QD 10/29/2018 Inactive primidone 50 mg tablet RxNorm: 455488 2 TABLET(S) PO BI D TAKE 2 TABLETS BY MOUTH EVERY NIGHT AT BEDTIME 10/07/2018 01/12/2019 Inactive Patient requests 90 days supply pravastatin 20 mg tablet RxNorm: 524025 1 TABLET(S) PO QD 09/23/2018 01/12/2019 Inactive clonazepam 1 mg tablet RxNorm: 185761 1 Tablet(s) PO QAM 09/19/2018 0 12/17/2018 Inactive primidone 50 mg tablet RxNorm: 993396 TABLET(S) TAKE 2 TABLETS BY MOUTH EVERY NIGHT AT BEDTIME 09/18/2018 01/12/2019 Inactive ciprofloxacin 0.2 % ear drops in a dropperette RxNorm: 86781 6 2 Drop(s) left otic (ear) BID 09/03/2018 09/09/2018 Inactive primidone 50 mg tablet RxNorm: 723559 2 Tablet(s) PO BI D TAKE 2 TABLETS BY MOUTH EVERY NIGHT AT BEDTIME 08/26/2018 10/06/2018 Inactive Ambien 5 mg tablet RxNorm: 114224 TAKE 1 TABLET BY MOUTH EVERY NIGHT AT BEDTIME 08/05/2018 09/03/2018 Inactive Singulair 10 mg tablet RxNorm: 946663 1 TABLET(S) PO QD 07/23/2018 Inactive clonazepam 1 mg tablet RxNorm: 091634 TAKE 1 TABLET BY MOUTH EV SUSAN MORNING 07/23/2018 08/21/2018 Inactive Plavix 75 mg tablet RxNorm: 018756 1 TABLET(S) PO QD 07/04/201812/22 Inactive [SAVINGS FOR NON-COVERED DRUGS -- BIN:00 3585, PCN: ASPROD1, Group: XXXXX, ID# [id number], Questions: . THIS IS NOT INSURANCE.] clonazepam 1 mg tablet RxNorm: 256600 TAKE 1 TABLET BY MOUTH EV SUSAN MORNING 06/25/2018 07/23/2018 Inactive clonazepam 1 mg tablet RxNorm: 841815 TAKE 1 TABLET BY MOUTH EV SUSAN MORNING 05/23/2018 06/21/2018 Inactive primidone 50 mg tablet RxNorm: 118502 Tablet(s) TAKE 2 TABLETS BY MOUTH EVERY NIGHT AT BEDTIME 05/16/2018 08/25/2018 Inactive oxycodone-acetaminophen 7.5 mg-325 mg tablet RxNorm: 0293222 1-2 Tablet(s) PO TID as needed 04/25/2018 05/24/2018 Inactive Singulair 10 mg tablet RxNorm: 945156 1 Tablet(s) PO QD 04/25/2018 Inactive Medrol (Jose) 4 mg tablets in a dose pack RxNorm: 524890 Tablet(s) PO take as directed 04/25/2018 09/02/2018 Inactive clonazepam 1 mg tablet RxNorm: 072394 TAKE 1 TABLET BY MOUTH EV SUSAN MORNING 04/24/2018 05/22/2018 Inactive Plavix 75 mg tablet RxNorm: 857611 1 TABLET(S) PO QD 04/04/201807/02 Inactive [SAVINGS FOR NON-COVERED DRUGS -- BIN:00 3582, PCN: ASPROD1, Group: XXXXX, ID# [id number], Questions: . THIS IS NOT INSURANCE.] pravastatin 20 mg tablet RxNorm: 780560 1 Tablet(s) PO QD 03/21/2018 09/16/2018 Inactive ProAir HFA 90 mcg/actuation aerosol inhaler RxNorm: 037827 2 Puff(s) INH Q4H as needed 03/18/2018 03/17/2018 Inactive tamsulosin 0.4 mg capsule RxNorm: 063118 1 CAPSULE(S) PO QD 018 01/12/2019 Inactive clonazepam 1 mg tablet RxNorm: 727119 1 Tablet(s) PO QAM 02/25/2018 0 04/25/2018 Inactive tamsulosin 0.4 mg capsule RxNorm: 685115 1 Capsule(s) PO QD 018 03/13/2018 Inactive tamsulosin 0.4 mg capsule RxNorm: 181683 1 Capsule(s) PO QD 018 02/03/2018 Inactive tamsulosin 0.4 mg capsule RxNorm: 320814 1 Capsule(s) PO QD 018 02/12/2018 Inactive Ambien 5 mg tablet RxNorm: 689785 Tablet(s) TAKE 1 TAB LET BY MOUTH EVERY NIGHT AT BEDTIME 01/24/2018 08/05/2018 Inactive primidone 50 mg tablet RxNorm: 745784 Tablet(s) TAKE 2 TABLETS BY MOUTH EVERY NIGHT AT BEDTIME 01/18/2018 05/16/2018 Inactive cyclobenzaprine 10 mg tablet RxNorm: 441617 1 Tablet(s) PO TID as needed for muscle spasm 01/11/2018 02/09/2018 Inactive [SAVINGS FOR NON -COVERED DRUGS -- BIN:109440, PCN: ASPROD1, Group: XXXXX, ID# [id number], Questions: . THIS IS NOT INSURANCE.] clonazepam 1 mg tablet RxNorm: 722813 1 Tablet(s) PO QAM 12/24/2017 0 02/21/2018 Inactive prednisone 20 mg tablet RxNorm: 875852 1 Tablet(s) PO QD 11/06/2017 0 11/10/2017 Inactive EpiPen 2-Jose 0.3 mg/0.3 mL injection, auto-injector RxNorm: 060674 1 Unit Dose IM as needed 11/06/2017 09/24/2019 Inactive ProAir HFA 90 mcg/actuation aerosol inhaler RxNorm: 970645 2 Puff(s) INH Q4H as needed 10/30/2017 03/17/2018 Inactive primidone 50 mg tablet RxNorm: 995513 TAKE 2 TABLETS BY MOUTH EVERY NIGHT AT BEDTIME 10/15/2017 01/17/2018 Inactive Plavix 75 mg tablet RxNorm: 614299 1 Tablet(s) PO QD 10/01/201703/29 Inactive [SAVINGS FOR NON-COVERED DRUGS -- BIN:00 3585, PCN: ASPROD1, Group: XXXXX, ID# [id number], Questions: . THIS IS NOT INSURANCE.] clonazepam 1 mg tablet RxNorm: 243199 1 Tablet(s) PO QAM 09/19/2017 0 12/16/2017 Inactive primidone 50 mg tablet RxNorm: 475718 2 Tablet(s) PO QHS 08/29/2017 0 01/18/2018 Inactive oxycodone-acetaminophen 7.5 mg-325 mg tablet RxNorm: 4264829 1-2 Tablet(s) PO TID as needed 08/22/2017 09/19/2017 Inactive pravastatin 20 mg tablet RxNorm: 289363 1 Tablet(s) PO QD 08/21/2017 03/21/2018 Inactive carvedilol 3.125 mg tablet RxNorm: 027039 1 Tablet(s) P O BID to replace 6.25mg dose 08/21/2017 09/02/2017 Inactive primidone 50 mg tablet RxNorm: 646173 TAKE 2 TABLETS BY MOUTH EVERY NIGHT AT BEDTIME 06/18/2017 08/28/2017 Inactive clonazepam 1 mg tablet RxNorm: 889034 1 Tablet(s) PO QAM 06/04/2017 1 11/02/2016 Inactive Plavix 75 mg tablet RxNorm: 489050 1 Tablet(s) PO QD 04/10/201710/01 Inactive [SAVINGS FOR NON-COVERED DRUGS -- BIN:00 2582, PCN: ASPROD1, Group: XXXXX, ID# [id number], Questions: . THIS IS NOT INSURANCE.] pravastatin 20 mg tablet RxNorm: 213496 1 Tablet(s) PO QD 02/26/2017 08/24/2017 Inactive carvedilol 3.125 mg tablet RxNorm: 861590 1 Tablet(s) P O BID to replace 6.25mg dose 02/26/2017 08/21/2017 Inactive Ultram 50 mg tablet RxNorm: 269493 TAKE 1 TO 2 TABLETS BY MOUTH THREE TIMES DAILY NEEDED FOR PAIN 02/26/2017 03/07/2017 Inactive pravastatin 20 mg tablet RxNorm: 888403 1 Tablet(s) PO QD 02/26/2017 08/21/2017 Inactive carvedilol 3.125 mg tablet RxNorm: 544010 1 Tablet(s) P O BID to replace 6.25mg dose 02/26/2017 08/20/2017 Inactive clonazepam 0.5 mg tablet RxNorm: 405643 1 Tablet(s) PO QAM 02/14/20 17 02/13/2017 Inactive primidone 50 mg tablet RxNorm: 325290 1 Tablet(s) PO QHS 02/13/2017 0 05/01/2017 Inactive clonazepam 1 mg tablet RxNorm: 470562 1 Tablet(s) PO QAM 02/13/2017 0 05/13/2017 Inactive primidone 50 mg tablet RxNorm: 321559 1/2 Tablet(s) PO QD for 7 days then increase to 1 tablet at bedtime 01/09/2017 02/12/2017 Inactive pravastatin 20 mg tablet RxNorm: 181270 Tablet(s) 1 TABLET(S) PO QD 11/29/2016 02/25/2017 Inactive clonazepam 1 mg tablet RxNorm: 545617 1 Tablet(s) PO BID replac es 0.5mg dose 11/23/2016 01/08/2017 Inactive pravastatin 20 mg tablet RxNorm: 125561 1 TABLET(S) PO QD 11/17/2016 11/28/2016 Inactive Ambien 5 mg tablet RxNorm: 297523 TAKE 1 TABLET BY MOUTH EVERY NIGHT AT BEDTIME 11/17/2016 12/14/2016 Inactive clonazepam 0.5 mg tablet RxNorm: 636115 TAKE 1 TABLET BY MOUTH TWICE DAILY 11/17/2016 11/22/2016 Inactive Plavix 75 mg tablet RxNorm: 544720 1 Tablet(s) PO QD 11/06/201604/09 Inactive [SAVINGS FOR NON-COVERED DRUGS -- BIN:00 3585, PCN: ASPROD1, Group: XXXXX, ID# [id number], Questions: . THIS IS NOT INSURANCE.] Plavix 75 mg tablet RxNorm: 839710 1 Tablet(s) PO QD 08/28/201611/05 Inactive [SAVINGS FOR NON-COVERED DRUGS -- BIN:00 3585, PCN: ASPROD1, Group: XXXXX, ID# [id number], Questions: . THIS IS NOT INSURANCE.] Lidoderm 5 % topical patch RxNorm: 1484644 Application T OP 2 patches for 12hrs then off for 12hrs 08/28/2016 08/27/2016 Inactive clonazepam 0.5 mg tablet RxNorm: 668280 1 Tablet(s) PO BID 08/07/20 16 11/22/2016 Inactive pravastatin 20 mg tablet RxNorm: 692904 1 Tablet(s) PO QD 08/07/2016 11/04/2016 Inactive cyclobenzaprine 10 mg tablet RxNorm: 924618 1 Tablet(s) PO TID as needed for muscle spasm 08/07/2016 09/05/2016 Inactive [SAVINGS FOR NON -COVERED DRUGS -- BIN:578877, PCN: ASPROD1, Group: XXXXX, ID# [id number], Questions: . THIS IS NOT INSURANCE.] Plavix 75 mg tablet RxNorm: 979476 1 Tablet(s) PO QD 08/07/201608/27 Inactive [SAVINGS FOR NON-COVERED DRUGS -- BIN: 3585, PCN: ASPROD1, Group: XXXXX, ID# [id number], Questions: . THIS IS NOT INSURANCE.] carvedilol 3.125 mg tablet RxNorm: 830357 1 Tablet(s) P O BID to replace 6.25mg dose 08/07/2016 02/02/2017 Inactive clonazepam 0.5 mg tablet RxNorm: 629005 1 Tablet(s) PO BID 07/04/20 16 08/07/2016 Inactive Plavix 75 mg tablet RxNorm: 406522 1 TABLET(S) PO QD 06/20/201608/06 Inactive [SAVINGS FOR NON-COVERED DRUGS -- BIN: 3585, PCN: ASPROD1, Group: XXXXX, ID# [id number], Questions: . THIS IS NOT INSURANCE.] clonazepam 0.5 mg tablet RxNorm: 374105 1 Tablet(s) PO BID 06/09/2007/03/2016 Inactive pravastatin 20 mg tablet RxNorm: 468786 1 Tablet(s) PO QD 05/23/2016 08/06/2016 Inactive pravastatin 20 mg tablet RxNorm: 597610 1 Tablet(s) PO QD 05/23/2016 05/22/2016 Inactive carvedilol 3.125 mg tablet RxNorm: 865616 1 Tablet(s) P O BID to replace 6.25mg dose 05/10/2016 08/06/2016 Inactive carvedilol 3.125 mg tablet RxNorm: 335342 1 Tablet(s) P O BID to replace 6.25mg dose 05/10/2016 05/09/2016 Inactive clonazepam 0.5 mg tablet RxNorm: 146561 1 Tablet(s) PO BID 05/10/20 16 06/08/2016 Inactive carvedilol 6.25 mg tablet RxNorm: 751815 1 Tablet(s) PO QD 05/10/20 16 05/10/2016 Inactive simvastatin 40 mg tablet RxNorm: 412047 1 TABLET(S) PO QD 04/10/2016 05/09/2016 Inactive Medrol (Jose) 4 mg tablets in a dose pack RxNorm: 704462 Tablet(s) PO As Directed 01/13/2016 05/09/2016 Inactive cyclobenzaprine 10 mg tablet RxNorm: 562592 1 TABLET(S) PO TID NEEDED FOR SPASM 01/11/2016 03/10/2016 Inactive [SAVINGS FOR NON -COVERED DRUGS -- BIN:577204, PCN: ASPROD1, Group: XXXXX, ID# [id number], Questions: . THIS IS NOT INSURANCE.] Plavix 75 mg tablet RxNorm: 973228 1 Tablet(s) PO QD 12/30/201506/19 Inactive [SAVINGS FOR NON-COVERED DRUGS -- BIN:00 3585, PCN: ASPROD1, Group: XXXXX, ID# [id number], Questions: . THIS IS NOT INSURANCE.] Ambien 5 mg tablet RxNorm: 100729 TAKE 1 TABLET BY MOUTH EVERY DAY AT BEDTIME 11/15/2015 11/17/2016 Inactive simvastatin 40 mg tablet RxNorm: 070725 1 Tablet(s) PO QD 10/11/2015 01/12/2019 Inactive simvastatin 40 mg tablet RxNorm: 806200 1 Tablet(s) PO QD 10/08/2015 10/10/2015 Inactive Ambien 5 mg tablet RxNorm: 246648 TAKE 1 TABLET BY MOUTH EVERY NIGHT AT BEDTIME 07/27/2015 11/15/2015 Inactive Plavix 75 mg tablet RxNorm: 753099 1 Tablet(s) PO QD 06/28/201512/29 Inactive [SAVINGS FOR NON-COVERED DRUGS -- BIN: 3585, PCN: ASPROD1, Group: XXXXX, ID# [id number], Questions: . THIS IS NOT INSURANCE.] Coreg 6.25 mg tablet RxNorm: 167615 1 TABLET(S) PO BID 04/19/2015 Inactive [SAVINGS FOR NON-COVERED DRUGS -- BIN:00 3585, PCN: ASPROD1, Group: XXXXX, ID# XXXXXXX, Questions: . THIS IS NOT INSURANCE.] simvastatin 40 mg tablet RxNorm: 461630 1 Tablet(s) PO QD 04/05/2015 04/04/2015 Inactive simvastatin 40 mg tablet RxNorm: 526291 1 Tablet(s) PO QD 04/05/2015 10/11/2015 Inactive Plavix 75 mg tablet RxNorm: 567613 1 TABLET(S) PO QD 03/22/201504/20 Inactive [SAVINGS FOR NON-COVERED DRUGS -- BIN:00 3585, PCN: ASPROD1, Group: XXXXX, ID# [id number], Questions: . THIS IS NOT INSURANCE.] Plavix 75 mg tablet RxNorm: 893965 1 Tablet(s) PO QD 03/22/201506/28 Inactive [SAVINGS FOR NON-COVERED DRUGS -- BIN:00 3585, PCN: ASPROD1, Group: XXXXX, ID# XXXXXXX, Questions: . THIS IS NOT INSURANCE.] Ambien 5 mg tablet RxNorm: 093758 1 Tablet(s) PO QHS 12/17/201407/28 Inactive [SAVINGS FOR NON-COVERED DRUGS -- BIN:00 3585, PCN: ASPROD1, Group: XXXXX, ID# XXXXXXX, Questions: . THIS IS NOT INSURANCE.] Coreg 6.25 mg tablet RxNorm: 997499 1 Tablet(s) PO BID 12/17/2014 Inactive [SAVINGS FOR NON-COVERED DRUGS -- BIN:00 3585, PCN: ASPROD1, Group: XXXXX, ID# XXXXXXX, Questions: . THIS IS NOT INSURANCE.] Plavix 75 mg tablet RxNorm: 074297 1 Tablet(s) PO QD 12/17/201403/16 Inactive [SAVINGS FOR NON-COVERED DRUGS -- BIN:00 3585, PCN: ASPROD1, Group: XXXXX, ID# XXXXXXX, Questions: . THIS IS NOT INSURANCE.] cyclobenzaprine 10 mg tablet RxNorm: 393939 1 Tablet(s) PO TID as needed for spasm 12/17/2014 03/16/2015 Inactive [SAVINGS FOR NON -COVERED DRUGS -- BIN:727205, PCN: ASPROD1, Group: XXXXX, ID# XXXXXXX, Questions: . THIS IS NOT INSURANCE.] Coreg 6.25 mg tablet RxNorm: 703043 1 Tablet(s) PO BID 10/21/201409/2014 Inactive [SAVINGS FOR NON-COVERED DRUGS -- BIN:00 3585, PCN: ASPROD1, Group: XXXXX, ID# [id number], Questions: . THIS IS NOT INSURANCE.] Plavix 75 mg tablet RxNorm: 550027 1 Tablet(s) PO QD 10/21/201412/16 Inactive [SAVINGS FOR NON-COVERED DRUGS -- BIN:00 3585, PCN: ASPROD1, Group: XXXXX, ID# XXXXXXX, Questions: . THIS IS NOT INSURANCE.] Plavix 75 mg tablet RxNorm: 477060 1 Tablet(s) PO QD Ne [facility] routine check up--last seen March 2012 09/21/2014 10/20/2014 Inactive [SAVINGS FOR UNINSURED PATIENTS -- BIN:491746, PCN: ASPROD1, Group: AME08, ID# [id number], Process claim through [employer], for questions: . THIS IS NOT INSURANCE.] Ambien 5 mg tablet RxNorm: 182635 1 Tablet(s) PO QHS 09/21/201412/16 Inactive [SAVINGS FOR UNINSURED PATIENTS -- BIN:0 18851, PCN: ASPROD1, Group: AME08, ID# [id number], Process claim through [employer], for questions: . THIS IS NOT INSURANCE.] Coreg 6.25 mg tablet RxNorm: 771447 1 Tablet(s) PO BID 09/21/201411/2014 Inactive [SAVINGS FOR UNINSURED PATIENTS -- BIN:0 75436, PCN: ASPROD1, Group: AME08, ID# [id number], Process claim through [employer], for questions: . THIS IS NOT INSURANCE.] Plavix 75 mg tablet RxNorm: 550026 1 Tablet(s) PO QD Ne eds routine check up--last seen March 2012 08/04/2014 09/02/2014 Inactive [SAVINGS FOR UNINSURED PATIENTS -- BIN:682002, PCN: ASPROD1, Group: AME08, ID# [id number], Process claim through [employer], for questions: . THIS IS NOT INSURANCE.] Plavix 75 mg tablet RxNorm: 537603 1 Tablet(s) PO QD Ne eds routine check up--last seen March 2012 08/03/2014 08/03/2014 Inactive Protonix 40 mg tablet,delayed release RxNorm: 887396 1 Tablet(s ) PO QD 06/08/2014 02/17/2019 Inactive [SAVINGS FOR UNINSUR ED PATIENTS -- BIN:107486, PCN: ASPROD1, Group: AME08, ID# [id number], Process claim through [employer], for questions: . THIS IS NOT INSURANCE.] hydrocodone 10 mg-acetaminophen 325 mg tablet RxNorm: 359787 1 Tablet(s) PO BID as needed for pain 02/18/2014 03/31/2015 Inactive Coreg 6.25 mg tablet RxNorm: 937715 1 Tablet(s) PO BID 02/02/2014 Inactive Protonix 40 mg granules delayed-release packet RxNorm: 614773 1 Tablet(s) PO QD 01/13/2014 06/08/2014 Inactive Plavix 75 mg tablet RxNorm: 385861 1 Tablet(s) PO QD Ne eds routine check up--last seen March 2012 01/13/2014 08/02/2014 Inactive Plavix 75 mg tablet RxNorm: 737324 1 Tablet(s) PO QD Ne eds routine check up--last seen March 2012 12/09/2013 01/07/2014 Inactive Coreg 6.25 mg tablet RxNorm: 446820 1 Tablet(s) PO BID 12/09/2013 Inactive Cymbalta 60 mg capsule,delayed release RxNorm: 081693 1 Capsule (s) PO QD 10/31/2013 01/12/2014 Inactive Coreg 6.25 mg tablet RxNorm: 793863 1 Tablet(s) PO BID 10/31/2013 Inactive Plavix 75 mg tablet RxNorm: 089933 1 Tablet(s) PO QD Ne eds routine check up--last seen March 2012 10/31/2013 11/29/2013 Inactive Coreg 6.25 mg tablet RxNorm: 566243 1 Tablet(s) PO BID 10/31/2013 Inactive atorvastatin 40 mg tablet RxNorm: 063985 1 Tablet(s) PO QD 10/31/1903/31/2015 Inactive Plavix 75 mg tablet RxNorm: 792328 1 Tablet(s) PO QD Ne eds routine check up--last seen March 2012 09/23/2013 10/30/2013 Inactive cyclobenzaprine 10 mg tablet RxNorm: 303653 1 Tablet(s) PO TID as needed for spasm 09/23/2013 No Stop Date Active cyclobenzaprine 10 mg tablet RxNorm: 781033 1 Tablet(s) PO TID as needed for spasm 07/04/2013 09/22/2013 Inactive atorvastatin 40 mg tablet RxNorm: 940255 1 Tablet(s) PO QD 06/23/20 13 10/30/2013 Inactive atorvastatin 40 mg tablet RxNorm: 190847 1 Tablet(s) PO QD 04/22/20 13 06/22/2013 Inactive Nucynta 50 mg tablet RxNorm: 756519 1-2 Tablet(s) PO Q6H as nee ded for pain 01/01/2013 01/12/2014 Inactive Ambien 5 mg tablet RxNorm: 609942 1 Tablet(s) PO QHS 10/16/201201/13 Inactive Plavix 75 mg tablet RxNorm: 416001 1 Tablet(s) PO QD 09/19/201209/13 Inactive Protonix 40 mg tablet,delayed release RxNorm: 086002 1 Tablet(s ) PO QD 09/19/2012 09/18/2012 Inactive simvastatin 40 mg tablet RxNorm: 195337 1 Tablet(s) PO QD 09/19/2012 02/23/2013 Inactive Protonix 40 mg tablet,delayed release RxNorm: 867026 1 Tablet(s ) PO QD 09/19/2012 09/13/2013 Inactive Ultram 50 mg tablet RxNorm: 710720 1-2 Tablet(s) PO QID as need ed for pain 09/19/2012 02/26/2017 Inactive propranolol 80 mg tablet RxNorm: 347667 1 Tablet(s) PO QHS 09/19/19 13 09/18/2012 Inactive Cymbalta 60 mg capsule,delayed release RxNorm: 678035 1 Capsule (s) PO QD 09/19/2012 09/18/2012 Inactive Cymbalta 60 mg capsule,delayed release RxNorm: 217977 1 Capsule (s) PO QD 09/19/2012 03/17/2013 Inactive propranolol 80 mg tablet RxNorm: 630266 1 Tablet(s) PO QHS 09/19/19 13 02/23/2013 Inactive hydrocodone-acetaminophen 10 mg-325 mg tablet RxNorm: 322160 2 1-2 Tablet(s) PO QID 07/25/2012 02/23/2013 Inactive Ambien 10 mg tablet RxNorm: 196775 1 Tablet(s) PO QHS as needed for sleep 07/10/2012 01/27/2013 Inactive propranolol 80 mg tablet RxNorm: 707567 1 Tablet(s) PO QHS 05/13/20 12 09/18/2012 Inactive hydrocodone-acetaminophen 10 mg-325 mg tablet RxNorm: 300753 2 1-2 Tablet(s) PO QID 05/02/2012 No Stop Date Active Restoril 15 mg Cap RxNorm: 030373 1-2 Capsule(s) PO QHS 05/02/2012 Inactive propranolol 80 mg tablet RxNorm: 623119 1 Tablet(s) PO QHS 05/02/20 12 05/12/2012 Inactive Chantix Starting Month Box 0.5 mg (11)-1 mg (42) Tabs in a Dose Pack RxNorm: 146103 Tablet(s) PO As Directed 04/01/2012 01/27/2013 Inactive simvastatin 40 mg tablet RxNorm: 161413 1 Tablet(s) PO QD 03/28/2012 09/18/2012 Inactive simvastatin 40 mg Tab RxNorm: 122930 1 Tablet(s) PO QD 03/22/201207/2012 Inactive Effient 10 mg Tab RxNorm: 903605 1 Tablet(s) PO QD 03/22/2012 012 Inactive Prilosec 40 mg Capsule, delayed release RxNorm: 230246 1 Capsul e(s) PO QD 03/22/2012 09/18/2012 Inactive Prilosec 40 mg Capsule, delayed release RxNorm: 051489 1 Capsul e(s) PO QD 03/19/2012 03/21/2012 Inactive Cymbalta 60 mg capsule,delayed release RxNorm: 386829 1 Capsule (s) PO QD 03/04/2012 08/30/2012 Inactive hydrocodone-acetaminophen 10 mg-325 mg Tab RxNorm: 6545667 1-2 T ablet(s) PO QID 01/23/2012 No Stop Date Active Cymbalta 60 mg Capsule, delayed release RxNorm: 994474 1 Capsul e(s) PO QD 01/23/2012 03/03/2012 Inactive Cipro 500 mg Tab RxNorm: 575464 1 Tablet(s) PO BID 12/20/2011 012 Inactive Cymbalta 60 mg Capsule, delayed release RxNorm: 123073 1 Capsul e(s) PO QD 12/13/2011 01/22/2012 Inactive nortriptyline 75 mg Cap RxNorm: 030680 1 Capsule(s) PO QHS 11/29/1904/02/2012 Inactive Cymbalta 60 mg Cap RxNorm: 673388 1 Capsule(s) PO QD 10/24/201112/11 Inactive propranolol 80 mg Tab RxNorm: 401075 1 Tablet(s) PO QHS 10/24/2011 Inactive hydrocodone-acetaminophen 10 mg-325 mg Tab RxNorm: 0563568 1-2 T ablet(s) PO QID 09/29/2011 No Stop Date Active hydrocodone-acetaminophen 10 mg-325 mg Tab RxNorm: 8541199 1-2 T ablet(s) PO QID 07/25/2011 No Stop Date Active hydrocodone-acetaminophen 10 mg-325 mg Tab RxNorm: 2761968 1-2 T ablet(s) PO QID 02/14/2011 No Stop Date Active Prilosec 40 mg Cap RxNorm: 863889 1 Capsule(s) PO 01/03/2011 01/13/20 19 Inactive nortriptyline 75 mg Cap RxNorm: 433833 1 Capsule(s) PO QHS 01/04/20 11 07/01/2011 Inactive Neurontin 600 mg Tab RxNorm: 745942 1 Tablet(s) PO QHS 12/08/201011/2011 Inactive hydrocodone-acetaminophen 5 mg-500 mg Tab RxNorm: 486666 2 Tablet(s) PO Q4-6H prn 10/20/2010 01/08/2011 Inactive Diltzac ER 240 mg Cap RxNorm: 729503 1 Capsule(s) PO QD 07/14/2010 Inactive Nortriptyline 75 mg Cap RxNorm: 745449 1 Capsule(s) PO QHS 05/09/20 10 01/12/2019 Inactive Neurontin 600 mg Tab RxNorm: 116247 1 Tablet(s) PO QD 03/17/201012/17 Inactive Nortriptyline 75 mg Cap RxNorm: 415076 1 Capsule(s) PO 01/12/2010 Inactive Nortriptyline 50 mg Cap RxNorm: 505458 1 Capsule(s) PO QHS 01/13/20 10 01/11/2010 Inactive Diltzac ER 240 mg Cap RxNorm: 636943 1 Capsule(s) PO QD 12/06/2009 Inactive aspirin 81 mg Tab RxNorm: 951750 1 Tablet(s) PO QD No Start Date Active Vitamin D3 2,000 unit tablet RxNorm: 019916 1 Tablet(s) PO QD No Star t Date Active [id number]-vedxnqxrq-[id number] complex no.233 oral RxNorm: oral No Start Date Active primidone 50 mg tablet RxNorm: 649196 2 Tablet(s) PO BID No Start Date Active Prilosec 40 mg Capsule, delayed release RxNorm: 841060 1 Capsul e(s) PO QD No Start Date 03/18/2012 Inactive Prilosec 20 mg Cap RxNorm: 469548 1 Capsule(s) PO QHS No Start Date 0 01/02/2011 Inactive primidone 50 mg tablet RxNorm: 193469 1/2 Tablet(s) PO QHS for 1week then go full tab if needed No Start Date 05/01/2017 Inactive ProAir HFA 90 mcg/actuation aerosol inhaler RxNorm: 703921 2 Puff(s) INH Q4H as needed No Start Date 10/29/2017 Inactive clonazepam 0.5 mg tablet RxNorm: 231560 1/2 Tablet(s) PO BID No Sta rt Date 02/12/2017 Inactive Pepcid AC 10 mg Tab RxNorm: 169580 1 Tablet(s) PO QAM No Start Date 0 02/19/2011 Inactive Coreg Oral RxNorm: Oral No Start Date 01/12/2014 Inactive primidone 50 mg tablet RxNorm: 392530 1/2 Tablet(s) PO QD for 7 days then increase to 1 tablet at bedtime No Start Date 01/08/2017 Inactive Medrol (Jose) 4 mg tablets in a dose pack RxNorm: 975905 Tablet(s) PO As Directed No Start Date 01/12/2016 Inactive Plavix 75 mg tablet RxNorm: 506901 1 Tablet(s) PO QD No Start Date Inactive cyclobenzaprine 10 mg tablet RxNorm: 816412 1 Tablet(s) PO TID as needed for spasm No Start Date 07/03/2013 Inactive Bevespi Aerosphere 9 mcg-4.8 mcg HFA aerosol inhaler RxNorm: 4330739 2 Puff(s) INH BID No Start Date 02/18/2019 Inactive tramadol 50 mg tablet RxNorm: 017024 1-2 Tablet(s) PO TID as ne eded for pain No Start Date 01/12/2019 Inactive clonazepam 1 mg tablet RxNorm: 512559 1 Tablet(s) PO QAM No Start D ate 09/18/2018 Inactive hydrocodone-acetaminophen 5 mg-500 mg Tab RxNorm: 606963 2 Tablet(s) PO Q4-6H prn No Start Date 10/19/2010 Inactive lisinopril 20 mg Tab RxNorm: 809825 1/2 Tablet(s) PO QD No Start Da te 03/12/2011 Inactive Lyrica 75 mg capsule RxNorm: 620619 1 Capsule(s) PO QHS No Start Da te 10/08/2019 Inactive Protonix 40 mg tablet,delayed release RxNorm: 659966 1 Tablet(s ) PO QD No Start Date 06/07/2014 Inactive Lipitor Oral RxNorm: Oral No Start Date 01/12/2014 Inactive primidone 50 mg tablet RxNorm: 978493 2 Tablet(s) PO QAM and 1 tablet at HS No Start Date 02/17/2019 Inactive hydrocodone-acetaminophen 10 mg-325 mg Tab RxNorm: 4031390 1-2 T ablet(s) PO QID No Start Date 02/13/2011 Inactive Ultram 50 mg tablet RxNorm: 733595 1-2 Tablet(s) PO QID as need ed for pain No Start Date 09/18/2012 Inactive Effient 10 mg Tab RxNorm: 319058 1 Tablet(s) PO QD No Start Date 01/2012 Inactive Bevespi Aerosphere 9 mcg-4.8 mcg HFA aerosol inhaler RxNorm: 4928537 2 Puff(s) INH BID No Start Date 10/29/2017 Inactive Neurontin Oral RxNorm: Oral No Start Date 01/12/2010 Inactive primidone 50 mg tablet RxNorm: 238075 1 Tablet(s) PO QD No Start Da te 01/12/2019 Inactive Chantix Starting Month Box 0.5 mg (11)-1 mg (42) Tabs in a Dose Pack RxNorm: 981877 Tablet(s) PO No Start Date 03/31/2012 Inactive atenolol 25 mg Tab RxNorm: 477232 1 Tablet(s) PO QD No Start Date 02/2012 Inactive Neurontin 600 mg Tab RxNorm: 679328 1 Tablet(s) PO QD No Start Date 0 03/16/2010 Inactive Nucynta 50 mg tablet RxNorm: 398654 1-2 Tablet(s) PO Q6H as nee ded for pain No Start Date 12/31/2012 Inactive simvastatin 40 mg Tab RxNorm: 119032 1 Tablet(s) PO QD No Start Date 03/21/2012 Inactive Medication Administered No Medication Administered data Immunizations Vaccine Codes Date Status Influenza CVX: 135 07/04/2017 Complete Results Observation Observation Code Item Item Code Result Date [facility] Location COMPLETE BLOOD COUNT [id number] WBC 4.9 10e9/L 09/30/19 20 Unknown COMPLETE BLOOD COUNT [id number] RBC 4.65 10e12/L 2019 Unknown COMPLETE BLOOD COUNT [id number] HEMOGLOBIN 13.8 g/dL 09/30/19 20 Unknown COMPLETE BLOOD COUNT [id number] HEMATOCRIT 42.3 % 09/30/19 20 Unknown COMPLETE BLOOD COUNT [id number] MCV 91.0 fL 0 Unknown COMPLETE BLOOD COUNT [id number] MCH 29.7 pg 0 Unknown COMPLETE BLOOD COUNT [id number] MCHC 32.6 g/dL 0 Unknown COMPLETE BLOOD COUNT [id number] PLATELET COUNT 230 10e9/L Unknown COMPLETE BLOOD COUNT [id number] Mean Plt Volume 9.9 fL Unknown COMPLETE BLOOD COUNT [id number] Neut Auto 52.5 % 0 Unknown COMPLETE BLOOD COUNT [id number] Lymph Auto 30.8 % 09/30/19 20 Unknown COMPLETE BLOOD COUNT [id number] [place] Auto 11.2 % 0 Unknown COMPLETE BLOOD COUNT [id number] RDW 13.5 % 0 Unknown COMPLETE BLOOD COUNT [id number] Eos Auto 5.1 % 0 Unknown COMPLETE BLOOD COUNT [id number] Baso Auto 0.4 % 0 Unknown COMPLETE BLOOD COUNT [id number] Neutrophil Abs 2.57 10e9/L Unknown COMPLETE BLOOD COUNT [id number] Lymphocyte Abs 1.51 10e9/L Unknown COMPLETE BLOOD COUNT [id number] Monocyte Abs 0.55 10e9/L 09/17 Unknown COMPLETE BLOOD COUNT [id number] Eosinophil Abs 0.25 10e9/L Unknown COMPLETE BLOOD COUNT [id number] RDW-SD 43.9 fL 0 Unknown COMPLETE BLOOD COUNT [id number] Basophil Abs 0.02 10e9/L 09/17 Unknown GFR CALC [id number] GFR Non Afr Amr >60 mL/min 09/30/2019 Un known GFR CALC 3293153 GFR Afr Amr >60 mL/min 09/30/2019 Unknow n THYROID STIMULATING HORMONE 90937 TSH 1.129 uIU/mL 09/30/2019 Unknown PSA EQUIMOLAR BARBIE 33289 PSA Total 0.77 ng/mL 0 Unknown L[facility] 73904 Cholesterol 192 mg/dL 09/30/2019 Unkno wn [facility] 26144 Triglyceride 86 mg/dL 09/30/2019 Unkn own L[facility] GROUP 83027 HDL CHOLESTEROL 64 mg/dL 09/30/2019 U nknown L[facility] GROUP 44209 Chol/HDL Ratio 3.00 ratio 09/30/2019 U nknown L[facility] GROUP 69838 NON-HDL Chol 128 mg/dL 09/30/2019 Unkn own L[facility] GROUP 73576 LDL Cholesterol 111 mg/dL 09/30/2019 U nknown COMPREHENSIVE METABOLIC 60948 AST 17 U/L 2019 Unknown COMPREHENSIVE METABOLIC 80285 ALT 10 U/L 2019 Unknown COMPREHENSIVE METABOLIC 89458 BUN 13 mg/dL 2019 Unknown COMPREHENSIVE METABOLIC 99435 ALBUMIN 4.3 g/dL 2019 Unknown COMPREHENSIVE METABOLIC 23831 CHLORIDE 102 mmol/L 09/30 Unknown COMPREHENSIVE METABOLIC 92142 Bili Total 0.6 mg/dL 09/30 Unknown COMPREHENSIVE METABOLIC 90069 ALK PHOS 91 U/L 2019 Unknown COMPREHENSIVE METABOLIC 61756 SODIUM 138 mmol/L 09/30 Unknown COMPREHENSIVE METABOLIC 15549 CREATININE 1.09 mg/dL 09/17 Unknown COMPREHENSIVE METABOLIC 42611 CALCIUM 9.0 mg/dL 2019 Unknown COMPREHENSIVE METABOLIC 33328 POTASSIUM 4.5 mmol/L 09/30 Unknown COMPREHENSIVE METABOLIC 24883 Total Protein 6.8 g/dL Unknown COMPREHENSIVE METABOLIC 94758 Glucose 91 mg/dL 2019 Unknown COMPREHENSIVE METABOLIC 76109 Bicarbonate 28 mmol/L 09/17 Unknown COMPREHENSIVE METABOLIC 20252 AGAP 8 mmol/L 2019 Unknown COMPLETE BLOOD COUNT [id number] WBC 4.9 10e9/L 09/04/20 18 Unknown COMPLETE BLOOD COUNT [id number] RBC 4.42 10e12/L 2017 Unknown COMPLETE BLOOD COUNT [id number] HEMOGLOBIN 13.4 g/dL 09/04/20 18 Unknown COMPLETE BLOOD COUNT 8805392 HEMATOCRIT 40.5 % 09/04/20 18 Unknown COMPLETE BLOOD COUNT [id number] MCV 91.6 fL 8 Unknown COMPLETE BLOOD COUNT [id number] MCH 30.3 pg 8 Unknown COMPLETE BLOOD COUNT 8046972 MCHC 33.1 g/dL 8 Unknown COMPLETE BLOOD COUNT [id number] PLATELET COUNT 224 10e9/L Unknown COMPLETE BLOOD COUNT 1652715 Mean Plt Volume 9.9 fL Unknown COMPLETE BLOOD COUNT [id number] Neut Auto 60.8 % 8 Unknown COMPLETE BLOOD COUNT [id number] Lymph Auto 26.8 % 09/04/20 18 Unknown COMPLETE BLOOD COUNT 7583153 [place] Auto 10.4 % 8 Unknown COMPLETE BLOOD COUNT 4780125 RDW 12.8 % 8 Unknown COMPLETE BLOOD COUNT 5189482 Eos Auto 1.6 % 8 Unknown COMPLETE BLOOD COUNT 2462626 Baso Auto 0.4 % 8 Unknown COMPLETE BLOOD COUNT [id number] Neutrophil Abs 2.98 10e9/L Unknown COMPLETE BLOOD COUNT [id number] Lymphocyte Abs 1.31 10e9/L Unknown COMPLETE BLOOD COUNT [id number] Monocyte Abs 0.51 10e9/L 08/17 Unknown COMPLETE BLOOD COUNT [id number] Eosinophil Abs 0.08 10e9/L Unknown COMPLETE BLOOD COUNT [id number] RDW-SD 41.6 fL 8 Unknown COMPLETE BLOOD COUNT [id number] Basophil Abs 0.02 10e9/L 08/17 Unknown COMPREHENSIVE METABOLIC 71506 AST 16 U/L 2017 Unknown COMPREHENSIVE METABOLIC 68333 ALT 8 U/L 2017 Unknown COMPREHENSIVE METABOLIC 88884 BUN 12 mg/dL 2017 Unknown COMPREHENSIVE METABOLIC 71192 ALBUMIN 4.4 g/dL 2017 Unknown COMPREHENSIVE METABOLIC 54688 CHLORIDE 107 mmol/L 09/04 Unknown COMPREHENSIVE METABOLIC 63166 Bili Total 1.0 mg/dL 09/04 Unknown COMPREHENSIVE METABOLIC 44938 ALK PHOS 58 U/L 2017 Unknown COMPREHENSIVE METABOLIC 59156 SODIUM 142 mmol/L 09/04 Unknown COMPREHENSIVE METABOLIC 13081 CREATININE 0.97 mg/dL 08/17 Unknown COMPREHENSIVE METABOLIC 62428 CALCIUM 9.2 mg/dL 2017 Unknown COMPREHENSIVE METABOLIC 13804 POTASSIUM 4.6 mmol/L 09/04 Unknown COMPREHENSIVE METABOLIC 88519 Total Protein 6.5 g/dL Unknown COMPREHENSIVE METABOLIC 05959 Glucose 96 mg/dL 2017 Unknown COMPREHENSIVE METABOLIC 83698 Bicarbonate 29 mmol/L 08/17 Unknown COMPREHENSIVE METABOLIC 47842 AGAP 6 mmol/L 2017 Unknown LIPID GROUP 08906 Cholesterol 182 mg/dL 09/04/2018 Unkno wn LIPID GROUP 46540 Triglyceride 84 mg/dL 09/04/2018 Unkn own LIP[facility] GROUP 10502 HDL CHOLESTEROL 76 mg/dL 09/04/2018 U nknown LIP[facility] GROUP 35254 Chol/HDL Ratio 2.39 ratio 09/04/2018 U nknown LIP[facility] GROUP 23047 NON-HDL Chol 106 mg/dL 09/04/2018 Unkn own LIP[facility] GROUP 28672 LDL Cholesterol 89 mg/dL 09/04/2018 U nknown GFR CALC 9666253 GFR Afr Amr >60 mL/min 09/04/2018 Unknow n GFR CALC 5626293 GFR Non Afr Amr >60 mL/min 09/04/2018 Un known THYROID STIMULATING HORMONE 98661 TSH 0.713 uIU/mL 09/04/2018 Unknown PSA EQUIMOLAR BARBIE 89274 PSA Total 0.66 ng/mL 8 Unknown A FOOD C P [id number] [place] Cl Class 0 11/17/2017 Unknown A FOOD C P [id number] [place] Ct <0.35 kU/L 11/17/2017 Unknow n A FOOD C P 6943984 [place] Cl Class 0 11/17/2017 Unkn own A FOOD C P [id number] [place] Ct <0.35 kU/L 11/17/2017 Unk nown A FOOD C P 7651899 [place] White Cl Class 0 11/17/2017 Unkno wn A FOOD C P 1259053 Egg White Ct <0.35 kU/L 11/17/2017 Unkn own A FOOD C P 0914605 Egg Yolk Cl Class 0 11/17/2017 Unknow n A FOOD C P [id number] Egg Yolk Ct <0.35 kU/L 11/17/2017 Unkno wn A FOOD C P 0569502 Cow Milk Cl Class 0 11/17/2017 Unknow n A FOOD C P [id number] Cow Milk Ct <0.35 kU/L 11/17/2017 Unkno wn A FOOD C P 6563621 Peanut Cl Class 0 11/17/2017 Unknown A FOOD C P 6481072 Peanut Ct <0.35 kU/L 11/17/2017 Unknown A FOOD C P 2644398 Shrimp Cl Class 0 11/17/2017 Unknown A FOOD C P 8971710 Shrimp Ct <0.35 kU/L 11/17/2017 Unknown A FOOD C P 8789141 [place] Cl Class 0 11/17/2017 Unknown A FOOD C P [id number] [place] Ct <0.35 kU/L 11/17/2017 Unknow n A FOOD C P 9461993 Wheat Cl Class 0 11/17/2017 Unknown A FOOD C P 8341565 Wheat Ct <0.35 kU/L 11/17/2017 Unknown A FOOD C P 0511561 Potato Cl Class 0 11/17/2017 Unknown A FOOD C P [id number] Potato Ct <0.35 kU/L 11/17/2017 Unknown A FOOD C P 8916104 Beef Cl Class 2 11/17/2017 Unknown A FOOD C P 0678292 Beef Ct 0.88 kU/L 11/17/2017 Unknown A FOOD C P [id number] [place] Cl Class 0 11/17/2017 Unknown A FOOD C P 8995309 [place] Ct <0.35 kU/L 11/17/2017 Unknown A FOOD C P 9464072 Pork Cl Class 0 11/17/2017 Unknown A FOOD C P [id number] Pork Ct <0.35 kU/L 11/17/2017 Unknown A FOOD C P [id number] [place] Cl Class 0 11/17/2017 Unknown A FOOD C P [id number] [place] Ct <0.35 kU/L 11/17/2017 Unknown A FOOD C P [id number] [place] Cl Class 0 11/17/2017 Unkn own A FOOD C P [id number] [place] Ct <0.35 kU/L 11/17/2017 Unk nown A FOOD C P [id number] [place] Cl Class 0 11/17/2017 Unknown A FOOD C P 3883934 [place] Ct <0.35 kU/L 11/17/2017 Unknown A FOOD C P 2415306 [place] Cl Class 0 11/17/2017 Unknown A FOOD C P [id number] [place] Ct <0.35 kU/L 11/17/2017 Unknown A FOOD C P [id number] [place] [facility] Class 0 11/17/2017 Unknown A FOOD C P 1427711 [place] <0.35 kU/L 11/17/2017 Unknown A FOOD C P 0535674 [place] Cl Class 0 11/17/2017 Unknown A FOOD C P 7167652 [place] Ct <0.35 kU/L 11/17/2017 Unknown A FOOD C P [id number] Oat Cl Class 0 11/17/2017 Unknown A FOOD C P [id number] Oat Ct <0.35 kU/L 11/17/2017 Unknown A FOOD C P [id number] [place] Cl Class 0 11/17/2017 Unknown A FOOD C P [id number] [place] Ct <0.35 kU/L 11/17/2017 Unknown A FOOD C P [id number] [place] Meat CL Class 0 11/17/2017 Un known A FOOD C P 8126069 Chicken Meat Ct <0.35 kU/L 11/17/2017 U nknown A FOOD C P [id number] [place] Cl Class 0 11/17/2017 Unknown A FOOD C P [id number] [place] Ct <0.35 kU/L 11/17/2017 Unknown A FOOD C P [id number] [place] Meat Cl Class 0 11/17/2017 Unkn own A FOOD C P [id number] [place] Meat Ct <0.35 kU/L 11/17/2017 Unk nown A NUTS PNL 6006138 Peanut Cl Class 0 11/17/2017 Unknown A NUTS PNL 4132562 Peanut Ct <0.35 kU/L 11/17/2017 Unknown A NUTS PNL 2110218 [place] Meat Cl Class 0 11/17/2017 Unk nown A NUTS PNL [id number] [place] [facility] <0.35 kU/L 11/17/2017 Un known A NUTS PNL 6968610 [place] Meat Cl Class 0 11/17/2017 Unkn own A NUTS PNL 9306869 [place] Ct <0.35 kU/L 11/17/2017 Unk nown A NUTS PNL [id number] [place] Cl Class 0 11/17/2017 Unknown A NUTS PNL 0273517 Mobile Ct <0.35 kU/L 11/17/2017 Unknown A NUTS PNL [id number] [place] Cl Class 0 11/17/2017 Unknow n A NUTS PNL [id number] [place] Ct <0.35 kU/L 11/17/2017 Unkno wn A NUTS PNL 6628705 [place] Cl Class 0 11/17/2017 Unkno wn A NUTS PNL 2760469 [place] Ct <0.35 kU/L 11/17/2017 Unkn own A NUTS PNL 2385594 [place] Cl Class 0 11/17/2017 Unknown A NUTS PNL 0996717 [place] Ct <0.35 kU/L 11/17/2017 Unknown A NUTS PNL 0435770 [place] Cl Class 0 11/17/2017 Unkno wn A NUTS PNL 2058602 [place] Ct <0.35 kU/L 11/17/2017 Unkn own A NUTS PNL 3728305 Allergen Interp See Note 11/17/2017 Un known A FRT/VG P 5332759 [place] Cl Class 0 11/17/2017 Unkn own A FRT/VG P 7979138 [place] Ct <0.35 kU/L 11/17/2017 Unk nown A FRT/VG P [id number] [place] Cl Class 0 11/17/2017 Unknown A FRT/VG P [id number] [place] Ct <0.35 kU/L 11/17/2017 Unknown A FRT/VG P [id number] [place] Cl Class 0 11/17/2017 Unkn own A FRT/VG P [id number] [place] Ct <0.35 kU/L 11/17/2017 Unk nown A FRT/VG P [id number] [place] Cl Class 0 11/17/2017 Unknown A FRT/VG P [id number] [place] Ct <0.35 kU/L 11/17/2017 Unknown A FRT/VG P 9057613 [place] Cl Class 0 11/17/2017 Unknown A FRT/VG P 8817070 [place] Ct <0.35 kU/L 11/17/2017 Unknown A FRT/VG P [id number] [place] Cl Class 1 11/17/2017 Unknown A FRT/VG P 1470924 [place] Ct 0.48 kU/L 11/17/2017 Unknown A FRT/VG P 4745701 [place] Cl Class 0 11/17/2017 Unk nown A FRT/VG P [id number] [place] Ct <0.35 kU/L 11/17/2017 Un known A FRT/VG P 4344759 [place] Cl Class 0 11/17/2017 Unk nown A FRT/VG P 3674424 [place] Ct <0.35 kU/L 11/17/2017 Un known A FRT/VG P 5677282 [place] Cl Class 0 11/17/2017 Unknown A FRT/VG P 7074454 [place] Ct <0.35 kU/L 11/17/2017 Unknown A FRT/VG P 6505213 [place] Cl Class 0 11/17/2017 Unknown A FRT/VG P 3734318 [place] Ct <0.35 kU/L 11/17/2017 Unknown A FRT/VG P 4474034 [place] Cl Class 0 11/17/2017 Unkn own A FRT/VG P 7958785 [place] Ct <0.35 kU/L 11/17/2017 Unk nown A FRT/VG P 4074837 Swt [place] Cl Class 0 11/17/2017 Unkn own A FRT/VG P 8992673 Swt [place] Ct <0.35 kU/L 11/17/2017 Unk nown THYROID STIMULATING HORMONE 10707 TSH 1.371 uIU/mL 09/03/2017 Unknown FREE T4 39560 T4 Free 1.26 ng/dL 09/03/2017 Unknown ASSAY TRIIODOTHYRONINE (T3) 91120 T3 Total 0.9 ng/mL Unknown COMPLETE BLOOD COUNT 7784176 WBC 5.9 10e9/L 07/31/20 17 Unknown COMPLETE BLOOD COUNT [id number] RBC 4.64 10e12/L 2016 Unknown COMPLETE BLOOD COUNT 9584052 HEMOGLOBIN 14.2 g/dL 07/31/20 17 Unknown COMPLETE BLOOD COUNT 7259966 HEMATOCRIT 42.1 % 07/31/20 17 Unknown COMPLETE BLOOD COUNT [id number] MCV 90.7 fL 7 Unknown COMPLETE BLOOD COUNT 1508267 MCH 30.6 pg 7 Unknown COMPLETE BLOOD COUNT [id number] MCHC 33.7 g/dL 7 Unknown COMPLETE BLOOD COUNT 7520118 PLATELET COUNT 195 10e9/L Unknown COMPLETE BLOOD COUNT [id number] Mean Plt Volume 10.0 fL Unknown COMPLETE BLOOD COUNT 4078493 Neut Auto 47.5 % 7 Unknown COMPLETE BLOOD COUNT [id number] Lymph Auto 37.4 % 07/31/20 17 Unknown COMPLETE BLOOD COUNT 2733762 [place] Auto 11.7 % 7 Unknown COMPLETE BLOOD COUNT 6052218 Eos Auto 3.2 % 7 Unknown COMPLETE BLOOD COUNT 1101721 RDW 12.8 % 7 Unknown COMPLETE BLOOD COUNT 1042014 Baso Auto 0.2 % 7 Unknown COMPLETE BLOOD COUNT 7692453 Neutrophil Abs 2.80 10e9/L Unknown COMPLETE BLOOD COUNT 5141946 Lymphocyte Abs 2.21 10e9/L Unknown COMPLETE BLOOD COUNT [id number] Monocyte Abs 0.69 10e9/L 07/18 Unknown COMPLETE BLOOD COUNT 8257144 Eosinophil Abs 0.19 10e9/L Unknown COMPLETE BLOOD COUNT 8457294 RDW-SD 41.6 fL 7 Unknown COMPLETE BLOOD COUNT [id number] Basophil Abs 0.01 10e9/L 07/18 Unknown LIPID GROUP 10270 Cholesterol 186 mg/dL 07/31/2017 Unkno wn LIPID GROUP 71874 Triglyceride 129 mg/dL 07/31/2017 Unkn own LIPID GROUP 91832 HDL CHOLESTEROL 79 mg/dL 07/31/2017 U nknown LIPID GROUP 25583 Chol/HDL Ratio 2.35 ratio 07/31/2017 U nknown LIPID GROUP 75848 NON-HDL Chol 107 mg/dL 07/31/2017 Unkn own LIPID GROUP 42305 LDL Cholesterol 81 mg/dL 07/31/2017 U nknown GFR CALC 6156206 GFR Non Afr Amr >60 mL/min 07/31/2017 Un known GFR CALC 8133150 GFR Afr Amr >60 mL/min 07/31/2017 Unknow n COMPREHENSIVE METABOLIC 32124 AST 19 U/L 2016 Unknown COMPREHENSIVE METABOLIC 89004 ALT 12 U/L 2016 Unknown COMPREHENSIVE METABOLIC 24853 BUN 15 mg/dL 2016 Unknown COMPREHENSIVE METABOLIC 90554 ALBUMIN 4.4 g/dL 2016 Unknown COMPREHENSIVE METABOLIC 93769 CHLORIDE 102 mmol/L 07/31 Unknown COMPREHENSIVE METABOLIC 53556 Bili Total 0.9 mg/dL 07/31 Unknown COMPREHENSIVE METABOLIC 19940 ALK PHOS 53 U/L 2016 Unknown COMPREHENSIVE METABOLIC 01865 SODIUM 138 mmol/L 07/31 Unknown COMPREHENSIVE METABOLIC 95338 CREATININE 1.06 mg/dL 07/18 Unknown COMPREHENSIVE METABOLIC 72042 CALCIUM 9.3 mg/dL 2016 Unknown COMPREHENSIVE METABOLIC 35917 POTASSIUM 4.0 mmol/L 07/31 Unknown COMPREHENSIVE METABOLIC 75766 Total Protein 6.8 g/dL Unknown COMPREHENSIVE METABOLIC 92817 Glucose 86 mg/dL 2016 Unknown COMPREHENSIVE METABOLIC 06047 Bicarbonate 28 mmol/L 07/18 Unknown COMPREHENSIVE METABOLIC 67054 AGAP 8 mmol/L 2016 Unknown COMPREHENSIVE METABOLIC 90422 AST 18 U/L 2015 Unknown COMPREHENSIVE METABOLIC 68349 ALT 9 U/L 2015 Unknown COMPREHENSIVE METABOLIC 65104 BUN 11 mg/dL 2015 Unknown COMPREHENSIVE METABOLIC 15311 ALBUMIN 4.2 g/dL 2015 Unknown COMPREHENSIVE METABOLIC 72549 CHLORIDE 104 mmol/L 05/19 Unknown COMPREHENSIVE METABOLIC 38846 Bili Total 1.2 mg/dL 05/19 Unknown COMPREHENSIVE METABOLIC 81931 ALK PHOS 54 U/L 2015 Unknown COMPREHENSIVE METABOLIC 90791 SODIUM 140 mmol/L 05/19 Unknown COMPREHENSIVE METABOLIC 15643 CREATININE 1.03 mg/dL 10/2015 Unknown COMPREHENSIVE METABOLIC 97526 CALCIUM 9.3 mg/dL 2015 Unknown COMPREHENSIVE METABOLIC 71654 POTASSIUM 4.9 mmol/L 05/19 Unknown COMPREHENSIVE METABOLIC 40754 Total Protein 6.7 g/dL Unknown COMPREHENSIVE METABOLIC 47909 Glucose 92 mg/dL 2015 Unknown COMPREHENSIVE METABOLIC 21052 Bicarbonate 28 mmol/L 10/2015 Unknown COMPREHENSIVE METABOLIC 78183 AGAP 8 mmol/L 2015 Unknown THYROID STIMULATING HORMONE 60004 TSH 1.545 uIU/mL 05/19/2016 Unknown GFR CALC 4155563 GFR Non Afr Amr >60 mL/min 05/19/2016 Un known GFR CALC 8427884 GFR Afr Amr >60 mL/min 05/19/2016 Unknow n VITAMIN B 12 35537 VITAMIN B12 298 pg/mL 05/19/2016 Unkn own COMPLETE BLOOD COUNT [id number] WBC 5.2 10e9/L 05/19/20 16 Unknown COMPLETE BLOOD COUNT 5331955 RBC 4.34 10e12/L 2015 Unknown COMPLETE BLOOD COUNT [id number] HEMOGLOBIN 12.9 g/dL 09/02/20 16 Unknown COMPLETE BLOOD COUNT [id number] HEMATOCRIT 38.9 % 05/19/20 16 Unknown COMPLETE BLOOD COUNT [id number] MCV 89.6 fL 6 Unknown COMPLETE BLOOD COUNT 6095076 MCH 29.7 pg 6 Unknown COMPLETE BLOOD COUNT 5505377 MCHC 33.2 g/dL 6 Unknown COMPLETE BLOOD COUNT 4189058 PLATELET COUNT 200 10e9/L 10/2015 Unknown COMPLETE BLOOD COUNT [id number] Mean Plt Volume 10.1 fL 10/2015 Unknown COMPLETE BLOOD COUNT 9429863 Neut Auto 45.4 % 6 Unknown COMPLETE BLOOD COUNT 3300858 Lymph Auto 35.6 % 05/19/20 16 Unknown COMPLETE BLOOD COUNT 8388816 [place] Auto 11.9 % 6 Unknown COMPLETE BLOOD COUNT 1112930 RDW 12.7 % 6 Unknown COMPLETE BLOOD COUNT 3311569 Eos Auto 6.7 % 6 Unknown COMPLETE BLOOD COUNT 7330736 Baso Auto 0.4 % 6 Unknown COMPLETE BLOOD COUNT 8577533 Neutrophil Abs 2.36 10e9/L Unknown COMPLETE BLOOD COUNT 1478446 Lymphocyte Abs 1.85 10e9/L Unknown COMPLETE BLOOD COUNT 9680175 Monocyte Abs 0.62 10e9/L 10/2015 Unknown COMPLETE BLOOD COUNT 2450462 Eosinophil Abs 0.35 10e9/L Unknown COMPLETE BLOOD COUNT 6593656 RDW-SD 40.6 fL 6 Unknown COMPLETE BLOOD COUNT [id number] Basophil Abs 0.02 10e9/L 10/2015 Unknown LIPID GROUP 52164 Cholesterol 197 mg/dL 05/19/2016 Unkno wn LIPID GROUP 69646 Triglyceride 92 mg/dL 05/19/2016 Unkn own LIPID GROUP 13027 HDL CHOLESTEROL 58 mg/dL 05/19/2016 U nknown LIPID GROUP 35095 Chol/HDL Ratio 3.40 ratio 05/19/2016 U nknown LIPID GROUP 94004 NON-HDL Chol 139 mg/dL 05/19/2016 Unkn own LIPID GROUP 79547 LDL Cholesterol 121 mg/dL 05/19/2016 U nknown FREE T4 83707 T4 Free 1.19 ng/dL 05/19/2016 Unknown COMPREHENSIVE METABOLIC 86227 AST 19 U/L 2014 Unknown COMPREHENSIVE METABOLIC 85228 ALT 10 IU/L 2014 Unknown COMPREHENSIVE METABOLIC 37339 BUN 20 MG/DL 2014 Unknown COMPREHENSIVE METABOLIC 40656 ALBUMIN 4.4 GM/DL 2014 Unknown COMPREHENSIVE METABOLIC 56094 CHLORIDE 104 MMOL/L 04/05 Unknown COMPREHENSIVE METABOLIC 52142 BILI TOT 2.2 MG/DL 2014 Unknown COMPREHENSIVE METABOLIC 84085 ALK PHOS 55 U/L 2014 Unknown COMPREHENSIVE METABOLIC 44670 SODIUM 138 MMOL/L 04/05 Unknown COMPREHENSIVE METABOLIC 34221 CREATININE 1.04 MG/DL 03/18 Unknown COMPREHENSIVE METABOLIC 55370 CALCIUM 9.3 MG/DL 2014 Unknown COMPREHENSIVE METABOLIC 18580 POTASSIUM 4.5 MMOL/L 04/05 Unknown COMPREHENSIVE METABOLIC 55418 PROT TOT 6.7 GM/DL 2014 Unknown COMPREHENSIVE METABOLIC 71621 Glucose 77 MG/DL 2014 Unknown COMPREHENSIVE METABOLIC 89962 BICARB 25 MMOL/L 2014 Unknown COMPREHENSIVE METABOLIC 26952 ANION GAP 9 MEQ/L 2014 Unknown GFR CALC 6107931 GFR AA >60 ML/MIN 04/05/2015 Unknown GFR CALC 2138959 GFR NON-AA >60 ML/MIN 04/05/2015 Unknown LIPID GROUP 26939 HDL TEST 60 MG/DL 04/05/2015 Unknown LIPID GROUP 19794 TRIG 70 MG/DL 04/05/2015 Unknown LIPID GROUP 81087 TEST LDL 137 MG/DL 04/05/2015 Unknown LIPID GROUP 84008 CHOL 211 MG/DL 04/05/2015 Unknown LIPID GROUP 08685 RCHOL/HDL 3.52 RATIO 04/05/2015 Unknow n LIPID GROUP 10300 NON-HDL CH 151 MG/DL 04/05/2015 Unknow n COMPLETE BLOOD COUNT [id number] WBC 5.3 10e9/L 04/05/20 15 Unknown COMPLETE BLOOD COUNT 3790908 RBC 4.42 10e12/L 2014 Unknown COMPLETE BLOOD COUNT [id number] HGB 13.4 g/dL 5 Unknown COMPLETE BLOOD COUNT [id number] HCT DET 39.6 % 5 Unknown COMPLETE BLOOD COUNT [id number] MCV 89.6 fL 5 Unknown COMPLETE BLOOD COUNT [id number] MCH 30.3 pg 5 Unknown COMPLETE BLOOD COUNT [id number] MCHC 33.8 g/dL 5 Unknown COMPLETE BLOOD COUNT [id number] PLT 201 10e9/L 04/05/20 15 Unknown COMPLETE BLOOD COUNT [id number] MPV 10.3 fL 5 Unknown COMPLETE BLOOD COUNT [id number] LUPE % 56.4 % 5 Unknown COMPLETE BLOOD COUNT [id number] LY % 24.8 % 5 Unknown COMPLETE BLOOD COUNT [id number] MON % 12.8 % 5 Unknown COMPLETE BLOOD COUNT [id number] EOS % 5.4 % 5 Unknown COMPLETE BLOOD COUNT [id number] BASO % 0.6 % 5 Unknown COMPLETE BLOOD COUNT [id number] RDW 13.2 % 5 Unknown COMPLETE BLOOD COUNT [id number] ABS LUPE 2.99 10e9/L 015 Unknown COMPLETE BLOOD COUNT [id number] ABS LYMPH 1.31 10e9/L 015 Unknown COMPLETE BLOOD COUNT [id number] ABS MONO 0.68 10e9/L 015 Unknown COMPLETE BLOOD COUNT [id number] ABS EOS 0.29 10e9/L 015 Unknown COMPLETE BLOOD COUNT [id number] ABS BASO 0.03 10e9/L 015 Unknown COMPLETE BLOOD COUNT [id number] RDW-SD 42.3 fL 5 Unknown LIPID GROUP 49124 HDL TEST 51 MG/DL 07/19/2012 Unknown LIPID GROUP 18094 TRIG 129 MG/DL 07/19/2012 Unknown LIPID GROUP 95121 TEST LDL 98 MG/DL 07/19/2012 Unknown LIPID GROUP 84347 CHOL 175 MG/DL 07/19/2012 Unknown LIPID GROUP 38713 RCHOL/HDL 3.43 RATIO 07/19/2012 Unknow n COMPREHENSIVE METABOLIC 58016 AST 18 U/L 2011 Unknown COMPREHENSIVE METABOLIC 76850 ALT 12 IU/L 2011 Unknown COMPREHENSIVE METABOLIC 28601 BUN 10 MG/DL 2011 Unknown COMPREHENSIVE METABOLIC 82192 ALBUMIN 4.1 GM/DL 2011 Unknown COMPREHENSIVE METABOLIC 16238 CHLORIDE 103 MMOL/L 07/19 Unknown COMPREHENSIVE METABOLIC 76439 BILI TOT 0.9 MG/DL 2011 Unknown COMPREHENSIVE METABOLIC 75707 ALK PHOS 62 U/L 2011 Unknown COMPREHENSIVE METABOLIC 59391 SODIUM 138 MMOL/L 07/19 Unknown COMPREHENSIVE METABOLIC 06736 CREATININE 1.08 MG/DL 10/2011 Unknown COMPREHENSIVE METABOLIC 09381 CALCIUM 9.1 MG/DL 2011 Unknown COMPREHENSIVE METABOLIC 17504 POTASSIUM 4.2 MMOL/L 07/19 Unknown COMPREHENSIVE METABOLIC 48056 PROT TOT 6.7 GM/DL 2011 Unknown COMPREHENSIVE METABOLIC 94439 Glucose 101 MG/DL 2011 Unknown COMPREHENSIVE METABOLIC 17465 BICARB 27 MMOL/L 2011 Unknown COMPREHENSIVE METABOLIC 59350 ANION GAP 8 MEQ/L 2011 Unknown GFR CALC [id number] GFR AA >60 ML/MIN 07/19/2012 Unknown GFR CALC [id number] GFR NON-AA >60 ML/MIN 07/19/2012 Unknown Procedures Procedure Codes Date ROUTINE VENIPUNCTURE CPT-4: 06061 09/30/2019 COMPREHEN METABOLIC PANEL CPT-4: 94669 09/30/2019 COMPLETE CBC W/AUTO DIFF WBC CPT-4: 35486 09/30/2019 ASSAY OF PSA TOTAL CPT-4: 41582 09/30/2019 ASSAY THYROID STIM HORMONE CPT-4: 73131 09/30/2019 LIPID PANEL CPT-4: 18377 09/30/2019 ROUTINE VENIPUNCTURE CPT-4: 52880 09/24/2019 COMPLETE CBC W/AUTO DIFF WBC CPT-4: 22364 09/24/2019 COMPREHEN METABOLIC PANEL CPT-4: 19028 09/24/2019 LIPID PANEL CPT-4: 49684 09/24/2019 ASSAY THYROID STIM HORMONE CPT-4: 66928 09/24/2019 THER/PROPH/DIAG INJ SC/IM CPT-4: 67960 01/13/2019 TRIAMCINOLONE ACET INJ NOS CPT-4: J3301 01/13/2019 DEXAMETHASONE SODIUM PHOS CPT-4: J1100 01/13/2019 ROUTINE VENIPUNCTURE CPT-4: 96360 09/04/2018 COMPREHEN METABOLIC PANEL CPT-4: 94932 09/04/2018 COMPLETE CBC W/AUTO DIFF WBC CPT-4: 29174 09/04/2018 LIPID PANEL CPT-4: 37402 09/04/2018 ASSAY OF PSA TOTAL CPT-4: 25131 09/04/2018 ASSAY THYROID STIM HORMONE CPT-4: 52556 09/04/2018 URINALYSIS NONAUTO W/O SCOPE CPT-4: 40702 05/15/2018 ROUTINE VENIPUNCTURE CPT-4: 63672 11/16/2017 A FRT/VG P CPT-4: 8561183 11/16/2017 A FOOD C P CPT-4: 4585377 11/16/2017 A NUTS PNL CPT-4: 3828528 11/16/2017 THER/PROPH/DIAG INJ SC/IM CPT-4: 95091 11/06/2017 TRIAMCINOLONE ACET INJ NOS CPT-4: J3301 11/06/2017 DEXAMETHASONE SODIUM PHOS CPT-4: J1100 11/06/2017 ROUTINE VENIPUNCTURE CPT-4: 84107 09/03/2017 ASSAY OF FREE THYROXINE CPT-4: 59310 09/03/2017 ASSAY THYROID STIM HORMONE CPT-4: 37418 09/03/2017 ASSAY TRIIODOTHYRONINE (T3) CPT-4: 65131 09/03/2017 ROUTINE VENIPUNCTURE CPT-4: 30235 07/31/2017 COMPREHEN METABOLIC PANEL CPT-4: 33077 07/31/2017 COMPLETE CBC W/AUTO DIFF WBC CPT-4: 36948 07/31/2017 LIPID PANEL CPT-4: 34474 07/31/2017 FLU VACC PRSV FREE INC ANTIG 65 AND OLDER CPT-4: 28899 07/04/2017 ADMIN INFLUENZA VIRUS VAC CPT-4: G0008 07/04/2017 ROUTINE VENIPUNCTURE CPT-4: 15972 02/26/2017 ASSAY THYROID STIM HORMONE CPT-4: 77202 02/26/2017 COMPREHEN METABOLIC PANEL CPT-4: 63705 02/26/2017 COMPLETE CBC W/AUTO DIFF WBC CPT-4: 40044 02/26/2017 LIPID PANEL CPT-4: 17950 02/26/2017 ASSAY OF PSA TOTAL CPT-4: 95592 02/26/2017 FLUZONE, 5ML (Medicare) CPT-4: Q2038 06/28/2016 ADMIN INFLUENZA VIRUS VAC CPT-4: G0008 06/28/2016 ROUTINE VENIPUNCTURE CPT-4: 28966 05/19/2016 ASSAY OF FREE THYROXINE CPT-4: 01023 05/19/2016 ASSAY THYROID STIM HORMONE CPT-4: 75452 05/19/2016 COMPREHEN METABOLIC PANEL CPT-4: 84808 05/19/2016 COMPLETE CBC W/AUTO DIFF WBC CPT-4: 61345 05/19/2016 LIPID PANEL CPT-4: 12393 05/19/2016 VITAMIN B-12 CPT-4: 45208 05/19/2016 PPPS, initial visit CPT-4: G0438 05/10/2016 ROUTINE VENIPUNCTURE CPT-4: 39682 04/05/2015 ASSAY THYROID STIM HORMONE CPT-4: 15900 04/05/2015 COMPREHEN METABOLIC PANEL CPT-4: 30551 04/05/2015 COMPLETE CBC W/AUTO DIFF WBC CPT-4: 07321 04/05/2015 LIPID PANEL CPT-4: 60999 04/05/2015 ASSAY OF PSA TOTAL CPT-4: 76805 04/05/2015 ROUTINE VENIPUNCTURE CPT-4: 23190 07/19/2012 COMPREHEN METABOLIC PANEL CPT-4: 54866 07/19/2012 LIPID PANEL CPT-4: 40461 07/19/2012 ELECTROCARDIOGRAM COMPLETE CPT-4: 89231 03/22/2012 Vital Signs Date Vital 09/24/2019 Blood Pressure 1: 125/72 Code: 8480-6 BMI: 19.8 Code: 97185-2 Heart Rate 1: 88 bpm Height: 5'11" [...] 1: 102/60 Code: 8480-6 BMI: 19.1 Code: 55765-8 Heart Rate 1: 82 bpm Height: 5'11" Respiratory Rate: 22 bpm SpO2: 97% Tempera ture: 36.4 (C) / 97.6 (F) Weight: 137 lbs 04/25/2018 Blood Pressure 1: 118/64 Code: 8480-6 BMI: 19.2 Code: 79360-9 Heart Rate 1: 98 bpm Height: 5'11" Respiratory Rate: 20 bpm SpO2: 99% Tempera ture: 36.4 (C) / 97.6 (F) Weight: 138 lbs 11/06/2017 Blood Pressure 1: 108/68 Code: 8480-6 BMI: 18.5 Code: 64052-4 Heart Rate 1: 68 bpm Height: 5'11" Respiratory Rate: 20 bpm SpO2: 96% Tempera ture: 36.8 (C) / 98.2 (F) Weight: 133 lbs 09/03/2017 Blood Pressure 1: 122/64 Code: 8480-6 BMI: 17.6 Code: 02002-0 Heart Rate 1: 90 bpm Height: 5'11" Respiratory Rate: 20 bpm SpO2: 98% Tempera ture: 36.4 (C) / 97.6 (F) Weight: 126 lbs 08/21/2017 Blood Pressure 1: 114/80 Code: 8480-6 BMI: 17.9 Code: 11590-4 Heart Rate 1: 80 bpm Height: 5'11" Respiratory Rate: 20 bpm SpO2: 95% Tempera ture: 36.6 (C) / 97.9 (F) Weight: 128 lbs 02/13/2017 Blood Pressure 1: 122/60 Code: 8480-6 BMI: 18.5 Code: 91215-9 Heart Rate 1: 76 bpm Height: 5'11" Respiratory Rate: 20 bpm SpO2: 96% Tempera ture: 36.9 (C) / 98.4 (F) Weight: 133 lbs 11/23/2016 Blood Pressure 1: 126/70 Code: 8480-6 BMI: 18.5 Code: 53335-9 Heart Rate 1: 100 bpm Height: 5'11" Respiratory Rate: 20 bpm SpO2: 96% Tempera ture: 37.1 (C) / 98.8 (F) Weight: 133 lbs 05/23/2016 Blood Pressure 1: 128/82 Code: 8480-6 BMI: 18.5 Code: 58583-3 Heart Rate 1: 88 bpm Height: 5'11" Respiratory Rate: 20 bpm Temperature: 36 .7 (C) / 98.0 (F) Weight: 133 lbs 05/10/2016 Blood Pressure 1: 146/70 Code: 8480-6 BMI: 18.5 Code: 79453-6 Heart Rate 1: 84 bpm Height: 5'11" Respiratory Rate: 20 bpm Temperature: 36 .7 (C) / 98.1 (F) Weight: 133 lbs 04/01/2015 Blood Pressure 1: 102/60 Code: 8480-6 BMI: 18.5 Code: 10476-8 Heart Rate 1: 64 bpm Height: 5'11" Respiratory Rate: 20 bpm Temperature: 36 .8 (C) / 98.2 (F) Weight: 133 lbs 01/13/2014 Blood Pressure 1: 124/78 Code: 8480-6 BMI: 19.8 Code: 28645-6 Heart Rate 1: 76 bpm Height: 5'11" Respiratory Rate: 20 bpm Temperature: 36 .8 (C) / 98.2 (F) Weight: 142 lbs 04/03/2012 Blood Pressure 1: 106/76 Code: 8480-6 BMI: 20.9 Code: 15143-3 Heart Rate 1: 84 bpm Height: 5'11" Respiratory Rate: 20 bpm Temperature: 36 .7 (C) / 98.0 (F) Weight: 150 lbs 12/20/2011 Blood Pressure 1: 116/60 Code: 8480-6 BMI: 20.1 Code: 43531-9 Heart Rate 1: 80 bpm Height: 5'11" Respiratory Rate: 20 bpm Temperature: 36 .4 (C) / 97.6 (F) Weight: 144 lbs 10/24/2011 Blood Pressure 1: 132/74 Code: 8480-6 BMI: 19.7 Code: 64672-1 Heart Rate 1: 96 bpm Height: 5'11" [...] 04/05/2015 follow up 04/01/2015 follow up 01/13/2014 [facility] November 2012 lab draw 07/19/2012 follow up 04/03/2012 S/P stent placement in LAD, changed effient to plavix hip pain 12/20/2011 dyskinesia or tremor 10/24/2011 follow up 03/13/2011 started on effient, zocor, and atenolol follow up 02/20/2011 [facility]/Dr Christian rojas follow up 02/23/2010 [facility], appt with Dr Bajwa 03/22/10 insomnia 01/12/2010 problems falling and staying asleep, takes nortriptyline Encounters Encounter Performer Location Codes Date ([id number]) OFFICE/OUTPATIENT VISIT EST Diagnosis: Essential tremor[ICD10: G25.0] Vonnie Mathews [facility] CPT-4: 13214 12/24/2019 ([id number]) NURSE/OUTPATIENT VISIT EST Diagnosis: Essential (primary) hypertension[ICD10: I10] Diagnosis: Mixed hyperlipidemia[ICD10: E78.2] Diagnosis: Encounter for screening for malignant neoplasm of prostate[ICD10: Z12.5] Vonnie MATHEWS [employer] CPT-4: 25749 09/30/2019 ([id number]) OFFICE/OUTPATIENT VISIT EST Diagnosis: Encounter for therapeutic drug level monitoring[ICD10: Z51.81] Diagnosis: Essential tremor[ICD10: G25.0] Verna Ramirez VONNIE MATHEWS [employer] CPT-4: 57673 09/24/2019 ([id number]) OFFICE/OUTPATIENT VISIT EST Diagnosis: Noninfective gastroenteritis and colitis, unspecified[ICD10: K52.9] Diagnosis: Hemorrhage of anus and rectum[ICD10: K62.5] Vonnie MATHEWS [employer] CPT-4: 94006 05/26/2019 ([id number]) OFFICE/OUTPATIENT VISIT EST Diagnosis: Other intervertebral disc degeneration, 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] Diagnosis: Other forms of dyspnea[ICD10: R06.09] Vonnie MATHEWS [employer] [facility] CPT-4: 33518 03/17/2019 OFFICE/OUTPATIENT VISIT EST Diagnosis: Other intervertebral disc degeneration, 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] Diagnosis: Other symptoms and signs involving the musculoskeletal system[ICD10: R29.898] Vonnie MATHEWS [employer] [facility] CPT-4: 57518 02/18/2019 ([id number]) OFFICE/OUTPATIENT VISIT EST Diagnosis: Other allergic rhinitis[ICD10: J30.89] Akilah Jessicagail MATHEWS [employer] [facility] CPT-4: 29538 01/13/2019 ([id number]) NURSE/OUTPATIENT VISIT EST Diagnosis: Mixed hyperlipidemia[ICD10: E78.2] Diagnosis: Essential (primary) hypertension[ICD10: I10] Diagnosis: Encounter for screening for malignant neoplasm of prostate[ICD10: Z12.5] Diagnosis: Encounter for general adult medical examination with abnormal findings[ICD10: Z00.01] Diagnosis: Benign prostatic hyperplasia without lower urinary tract symptoms[ICD10: N40.0] Vonnie MATHEWS [employer] [facility] CPT-4: 39666 09/04/2018 ([id number]) OFFICE/OUTPATIENT VISIT EST Diagnosis: Otorrhea, left ear[ICD10: H92.12] Diagnosis: Impacted cerumen, right ear[ICD10: H61.21] Verna MATHEWS [employer] [facility] CPT-4: 69251 09/03/2018 ([id number]) OFFICE/OUTPATIENT VISIT EST Diagnosis: Other intervertebral disc degeneration, 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] Diagnosis: Primary insomnia[ICD10: F51.01] Diagnosis: Essential tremor[ICD10: G25.0] Vonnie MATHEWS [employer] [facility] CPT-4: 07400 08/26/2018 ([id number]) OFFICE/OUTPATIENT VISIT EST Diagnosis: Pelvic and perineal pain[ICD10: R10.2] Verna MATHEWS [employer] CPT-4: 20839 05/15/2018 ([id number]) OFFICE/OUTPATIENT VISIT EST Diagnosis: Encounter for therapeutic drug level monitoring[ICD10: Z51.81] Diagnosis: Acute sinusitis, unspecified[ICD10: J01.90] Diagnosis: Other intervertebral disc degeneration, 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] Diagnosis: Essential tremor[ICD10: G25.0] Diagnosis: Raynaud's syndrome without gangrene[ICD10: I73.00] Verna MATHEWS [employer] CPT-4: 02359 04/25/2018 ([id number]) OFFICE/OUTPATIENT VISIT EST Diagnosis: Idiopathic urticaria[ICD10: L50.1] Diagnosis: Other urticaria[ICD10: L50.8] Vonniefabricio COLMENARES Denia BOWMAN [employer] CPT-4: 60649 11/16/2017 ([id number]) OFFICE/OUTPATIENT VISIT EST Diagnosis: Idiopathic urticaria[ICD10: L50.1] Diagnosis: Other urticaria[ICD10: L50.8] Diagnosis: Other forms of dyspnea[ICD10: R06.09] Vonnie RODGERS Denia [employer] CPT-4: 22873 11/06/2017 ([id number]) OFFICE/OUTPATIENT VISIT EST Diagnosis: Dyspnea, unspecified[ICD10: R06.00] Diagnosis: Abnormal weight loss[ICD10: R63.4] Vonnie LUCIA [employer] CPT-4: 84156 09/03/2017 ([id number]) OFFICE/OUTPATIENT VISIT EST 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] Diagnosis: Mixed hyperlipidemia[ICD10: E78.2] Diagnosis: Essential tremor[ICD10: G25.0] Diagnosis: Essential (primary) hypertension[ICD10: I10] Diagnosis: Abnormal weight loss[ICD10: R63.4] Vonnie LUCIA [employer] CPT-4: 95501 08/21/2017 ([id number]) OFFICE/OUTPATIENT VISIT EST Diagnosis: Mixed hyperlipidemia[ICD10: E78.2] Diagnosis: Essential (primary) hypertension[ICD10: I10] 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] Diagnosis: Anemia, unspecified[ICD10: D64.9] Vonnie MATHEWS DO [facility] CPT-4: 89721 07/31/2017 ([id number]) OFFICE/OUTPATIENT VISIT EST Diagnosis: FLU VACCINE[ICD10: Z23] Vonnie GERMAN [facility] CPT-4: 82875 07/04/2017 ([id number]) OFFICE/OUTPATIENT VISIT EST Diagnosis: Mixed hyperlipidemia[ICD10: E78.2] Diagnosis: Essential tremor[ICD10: G25.0] 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] Diagnosis: Essential (primary) hypertension[ICD10: I10] Diagnosis: Supraventricular tachycardia[ICD10: I47.1] Diagnosis: Other fatigue[ICD10: R53.83] Diagnosis: Encounter for screening for malignant neoplasm of prostate[ICD10: Z12.5] Vonnie MATHEWS DO [facility] CPT-4: 74770 02/26/2017 ([id number]) OFFICE/OUTPATIENT VISIT EST Diagnosis: Essential tremor[ICD10: G25.0] Vonnie MATHEWS DO [facility] CPT-4: 14859 02/13/2017 ([id number]) OFFICE/OUTPATIENT VISIT EST Diagnosis: Essential tremor[ICD10: G25.0] Diagnosis: Other intervertebral disc degeneration, 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] Vonnie MATHEWS DO [facility] CPT-4: 86620 11/23/2016 ([id number]) OFFICE/OUTPATIENT VISIT EST Diagnosis: FLU VACCINE[ICD10: Z23] Vonnie GERMAN [facility] CPT-4: 03091 06/28/2016 OFFICE/OUTPATIENT VISIT EST Diagnosis: Open bite of right hand, initial encounter[ICD10: S61.451A] Vonnie MATHEWS DO [facility] CPT-4: 61591 05/23/2016 ([id number]) OFFICE/OUTPATIENT VISIT EST Diagnosis: Encounter for general adult medical examination with abnormal findings[ICD10: Z00.01] Diagnosis: Mixed hyperlipidemia[ICD10: E78.2] Diagnosis: Essential tremor[ICD10: G25.0] 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] Vonnie Romulojuan miguel VONNIE Denia MATHEWS DO [facility] CPT-4: 56173 05/19/2016 ([id number]) OFFICE/OUTPATIENT VISIT EST Diagnosis: HYPERLIPIDEMIA NEC/NOS[ICD9: 272.4] Diagnosis: CAD[ICD9: 414.00] Diagnosis: TACHYCARDIA[ICD9: 785.0] Diagnosis: HYPERTENSION[ICD9: 401.9] Diagnosis: Routine medical exam[ICD9: V70.0] Vonnie Romulojuan miguel Galarza GilbertoKim [employer]AM[employer] CPT-4: 45245 04/05/2015 ([id number]) OFFICE/OUTPATIENT VISIT EST Diagnosis: HYPERTENSION[ICD9: 401.9] Diagnosis: HYPERLIPIDEMIA NEC/NOS[ICD9: 272.4] Diagnosis: CAD[ICD9: 414.00] Diagnosis: LUMB/LUMBOSAC DISC DEGEN[ICD9: 722.52] Vonnie GASPAR Denia BOWMAN [employer] [facility] CPT-4: 57894 04/01/2015 ([id number]) OFFICE/OUTPATIENT VISIT EST Diagnosis: CHEST PAIN NOS[ICD9: 786.50] Diagnosis: PAIN IN THORACIC SPINE[ICD9: 724.1] Diagnosis: HYPERTENSION[ICD9: 401.9] Diagnosis: GERD[ICD9: 530.81] Vonnie COLMENARES Denia MATHEWS [employer] [facility] CPT-4: 56707 01/13/2014 ([id number]) OFFICE/OUTPATIENT VISIT EST Diagnosis: CAD[ICD9: 414.00] Diagnosis: HYPERLIPIDEMIA NEC/NOS[ICD9: 272.4] Vonnie ANNA GilbertoKim NAMRATA [employer] [facility] CPT-4: 42732 07/19/2012 ([id number]) OFFICE/OUTPATIENT VISIT EST Diagnosis: CAD[ICD9: 414.00] Diagnosis: INSOMNIA NOS[ICD9: 780.52] Vonnie Loza OR YULISA DO [facility] CPT-4: 71817 04/03/2012 ([id number]) OFFICE/OUTPATIENT VISIT EST Diagnosis: CHEST PAIN NOS[ICD9: 786.50] Diagnosis: CAD[ICD9: 414.00] Vonnie SCHULTZNDER DO [facility] CPT-4: 96018 03/22/2012 ([id number]) OFFICE/OUTPATIENT VISIT EST Diagnosis: PROSTATITIS[ICD9: 601.9] Diagnosis: TREMOR NEC[ICD9: 333.1] Vonnie SCHULTZND ER DO [facility] CPT-4: 09075 12/20/2011 OFFICE/OUTPATIENT VISIT EST Diagnosis: TREMOR NEC[ICD9: 333.1] Diagnosis: TACHYCARDIA[ICD9: 785.0] Diagnosis: HYPERTENSION[ICD9: 401.9] Vonnie SCHULTZ NDER DO [facility] CPT-4: 86197 10/24/2011 OFFICE/OUTPATIENT VISIT EST Vonnie SCHULTZ NDER DO [facility] CPT- 4: 82902 03/13/2011 ([id number]) OFFICE/OUTPATIENT VISIT EST Vonnie GASPAR SKim SCHULTZNDER DO [facility] CPT-4: 12588 02/20/2011 ([id number]) OFFICE/OUTPATIENT VISIT, EST Vonnie SCHULTZNDER DO [facility] CPT-4: 93680 02/23/2010 ([id number]) OFFICE/OUTPATIENT VISIT, EST Vonnie SCHULTZNDER DO [facility] CPT-4: 19084 01/12/2010 Plan of Care Planned Activity Notes Codes Status Date Visit Diagnosis Plan: Essential tremor Discussion: Sta ble on clonazepam Fwup in 3mos with fasting lab ICD-9 : 333.1 ICD-10 : G25.0 12/24/2019 Appointment: Von[facility]ws [facility] [phone] [facility] [facility] 12/24/2019 Patient Education: Cathryn HFA- [employer] C[employer] [phone] [email or web address] Completed 12/24/2019 Appointment: Vonnie Mathews WPtel: [address] [place], [place] [phone] US LAB 09/30/2019 Appointment: Verna Ramirez [address] [place], [place] [phone] US RESCHEDULED 09/25/2019 Visit Diagnosis Plan: Encounter for therapeutic drug l evel monitoring Discussion: UDS and contract completed today. ICD-9 : V58.83 ICD-10 : Z51.81 09/24/2019 Visit Diagnosis Plan: Essential tremor Discussion: sta ble on clonazepam. educated patient about purchasing a large, heavy pen that will allow him to improve his writing. instructed him that pens can be purchased on [employer]. ICD-9 : 333.1 ICD-10 : G25.0 09/24/2019 Appointment: Verna Ramirez [address] [place] [address] MEDICATION REVIEW 09/24/2019 Visit Diagnosis Plan: Hemorrhage of anus and rectum Di scussion: Update colonoscopy ICD-9 : 569.3 ICD-10 : K62.5 05/26/2019 Visit Diagnosis Plan: Noninfective gastroenteritis and colitis, unspecified Discussion: Flagyl [place] diet Update colonoscopy ICD-9 : 558.9 ICD-10 : K52.9 05/26/2019 Appointment: Vonnie Mathews WPtel: [address] [place], [place] [phone] US record request faxed 05/23; ANGELINA with medical records 05/26/19 Hospital Follow Up 05/26/2019 Care Plan: Referral Order SNOMED-CT : 30 [id number] Pending 05/26/2019 Visit Diagnosis Plan: Other intervertebral disc degene ration, lumbar region Discussion: Increase lyrica to 150mg po q HS Continue stretches from PT [facility] Fwup after that appointment ICD-9 : 722.52 ICD-10 : M51.36 03/17/2019 Appointment: Vonnie Mathews WPtel: [address] [place], [place] [phone] US FOLLOW UP 03/17/2019 Visit Diagnosis Plan: [...] q HS once CT scan results obtained [facility] Follow Up: 3 weeks ICD-9 : 722.52 ICD-10 : M51.36 02/18/2019 Appointment: Vonnie Mathews WPtel: [address] [place] [address] FOLLOW UP 02/18/2019 Appointment: Vonnie Mathews WPtel: [address] [place] [address] US CANCELED 02/18/2019 Visit Diagnosis Plan: Other [...] ICD-10 : J30.89 01/13/2019 Appointment: Akilah Lopez [facility] [place] [email or web address] [place] [address] [place] Due for annual wellness ACUTE ILLNESS 01/14/20 Appointment: Vonnie Mathews WPtel: [address] [place], [place] [phone] US LAB 09/04/2018 Visit Diagnosis Plan: Otorrhea, [...] ICD-10 : H61.21 09/03/2018 Appointment: Verna Ramirez [address] [place], [place] [phone] ACUTE ILLNESS 09/03/2018 Visit Diagnosis Plan: Primary [...] : G25.0 08/26/2018 Appointment: Vonnie Mathews WPtel: [facility] US FOLLOW UP 08/26/2018 Visit Diagnosis Plan: [...] ICD-10 : R10.2 05/15/2018 Appointment: Verna Ramirez [address] [place], [place] [phone] ACUTE ILLNESS 05/15/2018 Patient Education: Patient Medication Summary Completed 05/15/2018 Care Plan: US EXAM PELVIC COMPLETE scrotal LOINC : 69325-8 Pending 05/15/2018 Visit Diagnosis Plan: Other intervertebral [...] ICD-10 : J01.90 04/25/2018 Appointment: Verna Ramirez [address] [place] [address] MEDICATION REVIEW 04/25/2018 Patient Education: Patient Medication Summary Completed 04/25/2018 Appointment: Vonnie Mathews WPtel: [address] [place] [address] 11/16/2017 Patient Education: Patient Medication Summary Completed [...] : L50.1 11/06/2017 Appointment: Vonnie Mathews WPtel: [facility] [address] FOLLOW UP 11/06/2017 Patient Education: Patient Medication Summary Completed 11/06/2017 Referral: John Das: Referral Initiated 10/15/2017 Visit Diagnosis Plan: Dyspnea, unspecified Discussion: Check PFTs May need CT scan of chest if above normal and with ongoing dyspnea/weight loss ICD-9 : 786.09 ICD-10 : R06.00 09/03/2017 Visit Diagnosis Plan: Abnormal weight loss Discussion: Check TSh, Free T4, TT3 ICD-9 : 783.21 ICD-10 : R63.4 09/03/2017 Appointment: Vonnie Mathews WPtel: [address] [place], [place] [phone] FOLLOW UP 09/03/2017 Patient Education: Patient Medication Summary Completed 09/03/2017 Visit Diagnosis Plan: Mixed hyperlipidemia Discussion: Lab discussed ICD-9 : 272.4 ICD-10 : E78.2 08/21/2017 Visit Diagnosis Plan: Essential tremor Discussion: Sta ble on Primidone ICD-9 : 333.1 ICD-10 : G25.0 08/21/2017 Visit Diagnosis Plan: Atherosclerotic he art disease of kenaitze coronary artery without angina pectoris Discussion: Sees Cardiology in 2 days To ER if CP returns before ICD-9 : 414.00 ICD-10 : I25.10 08/21/2017 Visit Diagnosis Plan: Abnormal weight loss Discussion: Start daily protein shake or smoothie ICD-9 : 783.21 ICD-10 : R63.4 08/21/2017 Visit Diagnosis Plan: Essential (primary) hypertension Discussion: Stable ICD-9 : 401.9 ICD-10 : I10 08/21/2017 Appointment: Vonnie Mathewstel: [address] [place], [place] [phone] US FOLLOW UP 08/21/2017 Patient Education: Patient Medication Summary Completed 08/21/2017 Appointment: Vonnie Mathewstel: [address] [place], [place] [phone] [place] LAB 07/31/2017 Patient Education: Patient Medication Summary Completed 07/31/2017 Appointment: Vonnie Mathews WPtel: [address] [place], [place] [phone] [place] INJECTION 07/04/2017 Patient Education: Patient Medication Summary Completed 07/04/2017 Appointment: Vonnie Mathews WPtel: [address] [place], [place] [phone] US LAB 02/26/2017 Patient Education: Patient Medication Summary Completed 02/26/2017 Visit Diagnosis Plan: Essential tremor Discussion: Con tinue clonazepam at 1mg q AM and primidone 50mg q HS Follow Up: 3 months ICD-9 : 333.1 ICD-10 : G25.0 02/13/2017 Appointment: Vonnie Mathews WPtel: [address] [place], [place] [phone] 02/08 confirmed~sl FOLLOW UP 02/13/2017 Patient Education: Patient Medication Summary Completed 02/13/2017 Appointment: Vonnie Mathews WPtel: [address] [place], [place] [phone] RESCHEDULED 01/23/2017 Visit Diagnosis Plan: Other intervertebral disc degene ration, lumbar region Discussion: DC oxycodone Tramadol 50mg 1-2 po TID prn pain Follow Up: 2 months ICD-9 : 722.52 ICD-10 : M51.36 11/23/2016 Visit Diagnosis Plan: Essential tremor Discussion: Inc rease clonazepam to 1mg po BID Discussed sinemet ICD-9 : 333.1 ICD-10 : G25.0 11/23/2016 Appointment: Vonnie Mathews WPtel: [address] [place], [place] [phone] 11/22 confirmed~sl MEDICATION REVIEW 11/23/2016 Patient Education: Patient Medication Summary Completed 11/23/2016 Patient Education: [facility] - [employer] - Clonazepam - 18-64 - Dynamic Portal ID Completed 11/23/2016 Appointment: Vonnie Mathews WPtel: [address] [place], [place] [phone] US INJECTION 06/28/2016 Patient Education: Patient Medication Summary Completed 06/28/2016 Referral: Fernando Day WPtel: #[address] [facility] Shilpa Lopez [id number] per Maribeth, the patient is sched uled [...] if worsening 05/23/2016 Appointment: Vonnie Mathews WPtel: [address] [place] [address] ER Follow UP 05/23/2016 Patient Education: Patient Medication Summary Completed 05/23/2016 Appointment: Vonnie Mathews WPtel: [address] [place], [place] [phone] US LAB 05/19/2016 Patient Education: Patient Medication Summary Completed 05/19/2016 Visit Plan: Change coreg to 3.125mg BID Trial of low dose clonazepam 0.5mg BID for tremors Fwup with Dr. Ramsey as scheduled Return for fasting lab--CBC, CMP, TSH, free T4, Lipids, PSA, B12 Proceed with Colonoscopy 05/10/2016 Appointment: Vonnie Mathews WPtel: [address] [place], [place] [phone] 05/09 confirmed~sl Annual Well Visit 05/10/2016 Patient Education: Patient Medication Summary Completed 05/10/2016 Care Plan: Referral Order SNOMED-CT : 30 [id number] Pending 05/10/2016 Appointment: Vonnie Mathewstel: [address] [place], [place] [phone] US Rescheduled for 05/10/16 at 2PM~lb RESCHEDULED 04/26/2016 Referral: Danilo Ramsey WPtel: [phone] [id number] US Referral Initiated 04/29/2015 Appointment: Vonnie Mathews WPtel: [address] [place], [place] [phone] US LAB 04/05/2015 Patient Education: Patient Medication Summary Completed 04/05/2015 Visit Plan: Return in AM for fasting lab --CMP, lipids, CBC, TSH, PSA Change hydrocodone to oxycodone 7.5/325mg 1-2 po TID Schedule with cardiology Needs colonoscopy once cardiology evaluation complete Will need to restart chol meds after lab Recheck 1mo on pain meds 04/01/2015 Appointment: Vonnie Mathews WPtel: [address] [place], [place] [phone] [place] 03/31 confirmed -mf PHYSICAL 04/01/2015 Patient Education: Patient Medication Summary Completed 04/01/2015 Appointment: Vonnie Mathews WPtel: [address] [place], [place] [phone] Annual Well Visit 09/23/2014 Visit Plan: Continue protonix Pt has fwu p with Card next month Rec chiropracter or PT for ribs/thoracics being out and could be contributing to chest pain 01/13/2014 Appointment: Vonnie Mathews WPtel: [address] [place], [place] [phone] [place] FOLLOW UP 01/13/2014 Patient Education: Patient Medication Summary Completed 01/13/2014 Appointment: Ariella Mcnally WPtel: [address] [place], [place] [phone] [place] FOLLOW UP 12/12/2013 Appointment: Malika Cárdenas WPtel: [address] [place], [place] [phone] PHYSICAL 12/12/2013 Appointment: Vonnie Mathews WPtel: [address] [place], [place] [phone] ACUTE ILLNESS 02/20/2013 Appointment: Vonnie Mathews WPtel: [address] [place], [place] [phone] [place] LAB 07/19/2012 Patient Education: Patient Medication Summary Completed 07/19/2012 Appointment: Vonnie Mathews WPtel: [address] [place] [address] FOLLOW UP 04/03/2012 Patient Education: Patient Medication Summary Completed 04/03/2012 Appointment: Vonnie Mathews WPtel: [address] [place] [address] ACUTE ILLNESS 03/22/2012 Patient Education: Patient Medication Summary Completed 03/22/2012 Appointment: Vonnie Mathews WPtel: [address] [place] [address] FOLLOW UP 12/26/2011 Visit Plan: Add Cipro Continue current m eds 12/20/2011 Appointment: Vonnie Mathews WPtel: [address] [place] [address] ACUTE ILLNESS 12/20/2011 Patient Education: Patient Medication Summary Completed 12/20/2011 Visit Plan: Change neurontin to Cymbalta 30mg for 1wk then 60mg QD Add Propranolol for tremor 10/24/2011 Appointment: Vonnie Mathews WPtel: [address] [place] [address] ACUTE ILLNESS 10/24/2011 Appointment: Vonnie Mathews WPtel: [address] [place] [address] ACUTE ILLNESS 10/24/2011 Patient Education: Patient Medication Summary Completed 10/24/2011 Visit Plan: Continue current meds and fw up with Card as scheduled 03/13/2011 Appointment: Vonnie Mathews WPtel: [address] [place] [address] FOLLOW UP 03/13/2011 Patient Education: Patient Medication Summary Completed 03/13/2011 Visit Plan: Will obtain all records and lab from [facility] Discussed will likely need heart cath which pt states that Patricia did talk to him about in the hospital 02/20/2011 Appointment: Vonnie Mathews WPtel: [address] [place], [place] [phone] ACUTE ILLNESS 02/20/2011 Patient Education: Patient Medication Summary Completed 02/20/2011 Visit Plan: Cont Pepcid and Prilosec See Card for cardiac cath. 02/23/2010 Appointment: Vonnie Mathews WPtel: [address] [place], [place] [phone] FOLLOW UP 02/23/2010 Patient Education: Patient Medication Summary Completed 02/23/2010 Visit Plan: Increase Pamelor to 75mg qhs Increase Hydrocodone to 10/325mg 1-2 po q6 prn 01/12/2010 Appointment: Vonnie Mathews WPtel: [address] [place], [place] [phone] ACUTE ILLNESS 01/12/2010 Patient Education: Patient Medication Summary Completed 01/12/2010 Referral: Iván Pardo WPtel: [facility] [address] Referral Initiated Referral: Fernando Day WPtel: #[address] [place] [phone] [place] Referral Completed Referral: Fernando Day WPtel: #1 [id number] [place] Referral Appointment Requested Instructions Comment . [...] obtain all records and lab from Sarah freddygail Discussed will likely need heart cath which [...]
--- OUTSIDE RECORDS SUMMARY | 2020-02-10 08:07 | XMS REPORT | CCD ---
Author Author Nash Mathews D.O. Organization [facility] Address [address] [place] [address] Phone Care Team Providers Care Prestidigitator Name Role Phone Vonnie Mathews D.O., PP Unavailable CCM Unavailable Summary Purpose Interface Exchange Insurance Providers Payer name Policy type / Coverage type Covered republican ID Effective Begin Date Effective End Date [employer] MEDICARE Medicare Part B [id number] 2019 Unknown Family History Family History data not found Social History Social History Element Codes Description Effective Dates Marital status Unknown 10/24/[address]: 508470525 Nonsmoker 03/29/2011 Allergies, Adverse Reactions, Alerts Substance [...] R63.4 08/21/2017 Active 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: [...] Fill Instructions Lyrica 75 mg capsule RxNorm: 481783 1 Capsule(s) Oral every nig ht at bedtime 12/25/2019 03/23/2020 Active ProAir HFA 90 mcg/actuation aerosol inhaler RxNorm: 054478 2 Puff(s) Inhalation four times a day as needed 12/25/2019 02/13/2020 Active Pat ient requests 90 days supply metoprolol tartrate 25 mg tablet RxNorm: 067118 09/18 Tab let(s) Oral two times a day 12/25/2019 06/22/2020 Active pravastatin 20 mg tablet RxNorm: 182111 1 Tablet(s) Oral QD 020 06/22/2020 Active Zyrtec 10 mg capsule RxNorm: 1413049 1 Capsule(s) Oral QD 0 No Stop Date Active ProAir HFA 90 mcg/actuation aerosol inhaler RxNorm: 675579 2 Puff(s) Inhalation four times a day as needed 12/24/2019 12/23/2019 Inactive ProAir HFA 90 mcg/actuation aerosol inhaler RxNorm: 449123 INHALE 2 PUFFS BY MOUTH FOUR TIMES DAILY NEEDED 12/24/2019 12/24/2019 Inactive Patient requests 90 days supply clonazepam 1 mg tablet RxNorm: 19741025 TAKE 1 TABLET BY MOUTH EV SUSAN MORNING 12/19/2019 01/17/2020 Active clonazepam 1 mg tablet RxNorm: 19741025 TAKE 1 TABLET BY MOUTH EV SUSAN MORNING 11/17/2019 12/16/2019 Inactive Tamiflu 75 mg capsule RxNorm: 856718 1 Capsule(s) Oral QD 11/03/2019 11/12/2019 Inactive Tamiflu 75 mg capsule RxNorm: 246975 1 Capsule(s) Oral QD 11/03/2019 11/02/2019 Inactive clonazepam 1 mg tablet RxNorm: 936683 TAKE 1 TABLET BY MOUTH EV SUSAN MORNING 10/16/2019 11/13/2019 Inactive pravastatin 20 mg tablet RxNorm: 988457 1 Tablet(s) Oral QD 020 12/24/2019 Inactive Singulair 10 mg tablet RxNorm: 885152 TAKE 1 TABLET BY MOUTH EV SUSAN DAY 10/10/2019 12/24/2019 Inactive Lyrica 75 mg capsule RxNorm: 240832 1 Capsule(s) Oral every nig ht at bedtime 10/09/2019 12/24/2019 Inactive clonazepam 1 mg tablet RxNorm: 735594 TAKE 1 TABLET BY MOUTH EV SUSAN AM 09/23/2019 10/15/2019 Inactive clonazepam 1 mg tablet RxNorm: 19741025 TAKE 1 TABLET BY MOUTH EV SUSAN AM 08/21/2019 09/22/2019 Inactive Singulair 10 mg tablet RxNorm: 644511 TABLET(S) 1 TABLET(S) PO QD 1 10/09/2019 Inactive Flagyl 500 mg tablet RxNorm: 550123 1 Tablet(s) PO TID 05/26/2019 Inactive clonazepam 1 mg tablet RxNorm: 256755 TAKE 1 TABLET BY MOUTH EV SUSAN MORNING 05/23/2019 06/21/2019 Inactive pravastatin 20 mg tablet RxNorm: 682457 1 Tablet(s) PO QD 04/14/2019 10/09/2019 Inactive Needs updated fasting labs Singulair 10 mg tablet RxNorm: 965593 Tablet(s) 1 TABLET(S) PO QD 0 04/14/2019 07/12/2019 Inactive clonazepam 1 mg tablet RxNorm: 878219 1 Tablet(s) PO QAM 02/21/2019 0 05/23/2019 Inactive Bevespi Aerosphere 9 mcg-4.8 mcg HFA aerosol inhaler RxNorm: 0397100 2 Puff(s) INH BID 02/19/2019 12/23/2019 Inactive ProAir HFA 90 mcg/actuation aerosol inhaler RxNorm: 380487 2 Puff(s) INH Q4H as needed 02/19/2019 09/24/2019 Inactive metoprolol tartrate 25 mg tablet RxNorm: 741892 1/2 Tablet(s) PO BI D 02/18/2019 05/18/2019 Inactive pravastatin 20 mg tablet RxNorm: 341731 1 Tablet(s) PO QD Needs updated fasting labs 01/13/2019 04/14/2019 Inactive Needs updated fa sting labs Singulair 10 mg tablet RxNorm: 974501 Tablet(s) 1 TABLET(S) PO QD 0 01/13/2019 04/12/2019 Inactive Plavix 75 mg tablet RxNorm: 742164 Tablet(s) 1 TABLET(S) PO QD 04/201906/20/2019 Inactive [SAVINGS FOR NON-COVERED SHANDA GS -- BIN:818286, PCN: ASPROD1, Group: XXXXX, ID# [id number], Questions: . THIS IS NOT INSURANCE.] Singulair 10 mg tablet RxNorm: 061059 1 TABLET(S) PO QD 10/29/2018 Inactive primidone 50 mg tablet RxNorm: 119468 2 TABLET(S) PO BI D TAKE 2 TABLETS BY MOUTH EVERY NIGHT AT BEDTIME 10/07/2018 01/12/2019 Inactive Patient requests 90 days supply pravastatin 20 mg tablet RxNorm: 569630 1 TABLET(S) PO QD 09/23/2018 01/12/2019 Inactive clonazepam 1 mg tablet RxNorm: 233743 1 Tablet(s) PO QAM 09/19/2018 0 12/17/2018 Inactive primidone 50 mg tablet RxNorm: 236987 TABLET(S) TAKE 2 TABLETS BY MOUTH EVERY NIGHT AT BEDTIME 09/18/2018 01/12/2019 Inactive ciprofloxacin 0.2 % ear drops in a dropperette RxNorm: 61760 6 2 Drop(s) left otic (ear) BID 09/03/2018 09/09/2018 Inactive primidone 50 mg tablet RxNorm: 885250 2 Tablet(s) PO BI D TAKE 2 TABLETS BY MOUTH EVERY NIGHT AT BEDTIME 08/26/2018 10/06/2018 Inactive Ambien 5 mg tablet RxNorm: 153322 TAKE 1 TABLET BY MOUTH EVERY NIGHT AT BEDTIME 08/05/2018 09/03/2018 Inactive Singulair 10 mg tablet RxNorm: 652526 1 TABLET(S) PO QD 07/23/2018 Inactive clonazepam 1 mg tablet RxNorm: 019572 TAKE 1 TABLET BY MOUTH EV SUSAN MORNING 07/23/2018 08/21/2018 Inactive Plavix 75 mg tablet RxNorm: 059044 1 TABLET(S) PO QD 07/04/201812/22 Inactive [SAVINGS FOR NON-COVERED DRUGS -- BIN:00 3399, PCN: ASPROD1, Group: XXXXX, ID# [id number], Questions: . THIS IS NOT INSURANCE.] clonazepam 1 mg tablet RxNorm: 590789 TAKE 1 TABLET BY MOUTH EV SUSAN MORNING 06/25/2018 07/23/2018 Inactive clonazepam 1 mg tablet RxNorm: 177327 TAKE 1 TABLET BY MOUTH EV SUSAN MORNING 05/23/2018 06/21/2018 Inactive primidone 50 mg tablet RxNorm: 315139 Tablet(s) TAKE 2 TABLETS BY MOUTH EVERY NIGHT AT BEDTIME 05/16/2018 08/25/2018 Inactive oxycodone-acetaminophen 7.5 mg-325 mg tablet RxNorm: 5420090 1-2 Tablet(s) PO TID as needed 04/25/2018 05/24/2018 Inactive Singulair 10 mg tablet RxNorm: 415694 1 Tablet(s) PO QD 04/25/2018 Inactive Medrol (Jose) 4 mg tablets in a dose pack RxNorm: 983852 Tablet(s) PO take as directed 04/25/2018 09/02/2018 Inactive clonazepam 1 mg tablet RxNorm: 239730 TAKE 1 TABLET BY MOUTH EV SUSAN MORNING 04/24/2018 05/22/2018 Inactive Plavix 75 mg tablet RxNorm: 194496 1 TABLET(S) PO QD 04/04/201807/02 Inactive [SAVINGS FOR NON-COVERED DRUGS -- BIN:00 2759, PCN: ASPROD1, Group: XXXXX, ID# [id number], Questions: . THIS IS NOT INSURANCE.] pravastatin 20 mg tablet RxNorm: 368505 1 Tablet(s) PO QD 03/21/2018 09/16/2018 Inactive ProAir HFA 90 mcg/actuation aerosol inhaler RxNorm: 599696 2 Puff(s) INH Q4H as needed 03/18/2018 03/17/2018 Inactive tamsulosin 0.4 mg capsule RxNorm: 667154 1 CAPSULE(S) PO QD 018 01/12/2019 Inactive clonazepam 1 mg tablet RxNorm: 191369 1 Tablet(s) PO QAM 02/25/2018 0 04/25/2018 Inactive tamsulosin 0.4 mg capsule RxNorm: 054054 1 Capsule(s) PO QD 018 03/13/2018 Inactive tamsulosin 0.4 mg capsule RxNorm: 286775 1 Capsule(s) PO QD 018 02/03/2018 Inactive tamsulosin 0.4 mg capsule RxNorm: 476818 1 Capsule(s) PO QD 018 02/12/2018 Inactive Ambien 5 mg tablet RxNorm: 214937 Tablet(s) TAKE 1 TAB LET BY MOUTH EVERY NIGHT AT BEDTIME 01/24/2018 08/05/2018 Inactive primidone 50 mg tablet RxNorm: 105836 Tablet(s) TAKE 2 TABLETS BY MOUTH EVERY NIGHT AT BEDTIME 01/18/2018 05/16/2018 Inactive cyclobenzaprine 10 mg tablet RxNorm: 542052 1 Tablet(s) PO TID as needed for muscle spasm 01/11/2018 02/09/2018 Inactive [SAVINGS FOR NON -COVERED DRUGS -- BIN:952687, PCN: ASPROD1, Group: XXXXX, ID# [id number], Questions: . THIS IS NOT INSURANCE.] clonazepam 1 mg tablet RxNorm: 387915 1 Tablet(s) PO QAM 12/24/2017 0 02/21/2018 Inactive prednisone 20 mg tablet RxNorm: 040714 1 Tablet(s) PO QD 11/06/2017 0 11/10/2017 Inactive EpiPen 2-Jose 0.3 mg/0.3 mL injection, auto-injector RxNorm: 518684 1 Unit Dose IM as needed 11/06/2017 09/24/2019 Inactive ProAir HFA 90 mcg/actuation aerosol inhaler RxNorm: 495392 2 Puff(s) INH Q4H as needed 10/30/2017 03/17/2018 Inactive primidone 50 mg tablet RxNorm: 968192 TAKE 2 TABLETS BY MOUTH EVERY NIGHT AT BEDTIME 10/15/2017 01/17/2018 Inactive Plavix 75 mg tablet RxNorm: 805849 1 Tablet(s) PO QD 10/01/201703/29 Inactive [SAVINGS FOR NON-COVERED DRUGS -- BIN:00 3585, PCN: ASPROD1, Group: XXXXX, ID# [id number], Questions: . THIS IS NOT INSURANCE.] clonazepam 1 mg tablet RxNorm: 482311 1 Tablet(s) PO QAM 09/19/2017 0 12/16/2017 Inactive primidone 50 mg tablet RxNorm: 604605 2 Tablet(s) PO QHS 08/29/2017 0 01/18/2018 Inactive oxycodone-acetaminophen 7.5 mg-325 mg tablet RxNorm: 3893700 1-2 Tablet(s) PO TID as needed 08/22/2017 09/19/2017 Inactive pravastatin 20 mg tablet RxNorm: 936870 1 Tablet(s) PO QD 08/21/2017 03/21/2018 Inactive carvedilol 3.125 mg tablet RxNorm: 111741 1 Tablet(s) P O BID to replace 6.25mg dose 08/21/2017 09/02/2017 Inactive primidone 50 mg tablet RxNorm: 167005 TAKE 2 TABLETS BY MOUTH EVERY NIGHT AT BEDTIME 06/18/2017 08/28/2017 Inactive clonazepam 1 mg tablet RxNorm: 466996 1 Tablet(s) PO QAM 06/04/2017 1 11/02/2016 Inactive Plavix 75 mg tablet RxNorm: 687477 1 Tablet(s) PO QD 04/10/201710/01 Inactive [SAVINGS FOR NON-COVERED DRUGS -- BIN:00 3331, PCN: ASPROD1, Group: XXXXX, ID# [id number], Questions: . THIS IS NOT INSURANCE.] pravastatin 20 mg tablet RxNorm: 930597 1 Tablet(s) PO QD 02/26/2017 08/24/2017 Inactive carvedilol 3.125 mg tablet RxNorm: 890503 1 Tablet(s) P O BID to replace 6.25mg dose 02/26/2017 08/21/2017 Inactive Ultram 50 mg tablet RxNorm: 829001 TAKE 1 TO 2 TABLETS BY MOUTH THREE TIMES DAILY NEEDED FOR PAIN 02/26/2017 03/07/2017 Inactive pravastatin 20 mg tablet RxNorm: 926905 1 Tablet(s) PO QD 02/26/2017 08/21/2017 Inactive carvedilol 3.125 mg tablet RxNorm: 048680 1 Tablet(s) P O BID to replace 6.25mg dose 02/26/2017 08/20/2017 Inactive clonazepam 0.5 mg tablet RxNorm: 444563 1 Tablet(s) PO QAM 02/14/20 17 02/13/2017 Inactive primidone 50 mg tablet RxNorm: 376745 1 Tablet(s) PO QHS 02/13/2017 0 05/01/2017 Inactive clonazepam 1 mg tablet RxNorm: 495754 1 Tablet(s) PO QAM 02/13/2017 0 05/13/2017 Inactive primidone 50 mg tablet RxNorm: 620914 1/2 Tablet(s) PO QD for 7 days then increase to 1 tablet at bedtime 01/09/2017 02/12/2017 Inactive pravastatin 20 mg tablet RxNorm: 898501 Tablet(s) 1 TABLET(S) PO QD 11/29/2016 02/25/2017 Inactive clonazepam 1 mg tablet RxNorm: 749523 1 Tablet(s) PO BID replac es 0.5mg dose 11/23/2016 01/08/2017 Inactive pravastatin 20 mg tablet RxNorm: 822697 1 TABLET(S) PO QD 11/17/2016 11/28/2016 Inactive Ambien 5 mg tablet RxNorm: 561894 TAKE 1 TABLET BY MOUTH EVERY NIGHT AT BEDTIME 11/17/2016 12/14/2016 Inactive clonazepam 0.5 mg tablet RxNorm: 107392 TAKE 1 TABLET BY MOUTH TWICE DAILY 11/17/2016 11/22/2016 Inactive Plavix 75 mg tablet RxNorm: 806762 1 Tablet(s) PO QD 11/06/201604/09 Inactive [SAVINGS FOR NON-COVERED DRUGS -- BIN:5, PCN: ASPROD1, Group: XXXXX, ID# [id number], Questions: . THIS IS NOT INSURANCE.] Plavix 75 mg tablet RxNorm: 795739 1 Tablet(s) PO QD 08/28/201611/05 Inactive [SAVINGS FOR NON-COVERED DRUGS -- BIN: 3585, PCN: ASPROD1, Group: XXXXX, ID# [id number], Questions: . THIS IS NOT INSURANCE.] Lidoderm 5 % topical patch RxNorm: 5951659 Application T OP 2 patches for 12hrs then off for 12hrs 08/28/2016 08/27/2016 Inactive clonazepam 0.5 mg tablet RxNorm: 653063 1 Tablet(s) PO BID 08/07/20 16 11/22/2016 Inactive pravastatin 20 mg tablet RxNorm: 076107 1 Tablet(s) PO QD 08/07/2016 11/04/2016 Inactive cyclobenzaprine 10 mg tablet RxNorm: 551224 1 Tablet(s) PO TID as needed for muscle spasm 08/07/2016 09/05/2016 Inactive [SAVINGS FOR NON -COVERED DRUGS -- BIN:258719, PCN: ASPROD1, Group: XXXXX, ID# [id number], Questions: . THIS IS NOT INSURANCE.] Plavix 75 mg tablet RxNorm: 774136 1 Tablet(s) PO QD 08/07/201608/27 Inactive [SAVINGS FOR NON-COVERED DRUGS -- BIN:00 3585, PCN: ASPROD1, Group: XXXXX, ID# [id number], Questions: . THIS IS NOT INSURANCE.] carvedilol 3.125 mg tablet RxNorm: 806733 1 Tablet(s) P O BID to replace 6.25mg dose 08/07/2016 02/02/2017 Inactive clonazepam 0.5 mg tablet RxNorm: 104731 1 Tablet(s) PO BID 07/04/20 16 08/07/2016 Inactive Plavix 75 mg tablet RxNorm: 546623 1 TABLET(S) PO QD 06/20/201608/06 Inactive [SAVINGS FOR NON-COVERED DRUGS -- BIN:00 3585, PCN: ASPROD1, Group: XXXXX, ID# [id number], Questions: . THIS IS NOT INSURANCE.] clonazepam 0.5 mg tablet RxNorm: 731767 1 Tablet(s) PO BID 06/09/20 16 07/03/2016 Inactive pravastatin 20 mg tablet RxNorm: 639397 1 Tablet(s) PO QD 05/23/2016 08/06/2016 Inactive pravastatin 20 mg tablet RxNorm: 828457 1 Tablet(s) PO QD 05/23/2016 05/22/2016 Inactive carvedilol 3.125 mg tablet RxNorm: 593610 1 Tablet(s) P O BID to replace 6.25mg dose 05/10/2016 08/06/2016 Inactive carvedilol 3.125 mg tablet RxNorm: 591706 1 Tablet(s) P O BID to replace 6.25mg dose 05/10/2016 05/09/2016 Inactive clonazepam 0.5 mg tablet RxNorm: 150659 1 Tablet(s) PO BID 05/10/20 16 06/08/2016 Inactive carvedilol 6.25 mg tablet RxNorm: 239227 1 Tablet(s) PO QD 05/10/20 16 05/10/2016 Inactive simvastatin 40 mg tablet RxNorm: 182585 1 TABLET(S) PO QD 04/10/2016 05/09/2016 Inactive Medrol (Jose) 4 mg tablets in a dose pack RxNorm: 554104 Tablet(s) PO As Directed 01/13/2016 05/09/2016 Inactive cyclobenzaprine 10 mg tablet RxNorm: 455450 1 TABLET(S) PO TID NEEDED FOR SPASM 01/11/2016 03/10/2016 Inactive [SAVINGS FOR NON -COVERED DRUGS -- BIN:922364, PCN: ASPROD1, Group: XXXXX, ID# [id number], Questions: . THIS IS NOT INSURANCE.] Plavix 75 mg tablet RxNorm: 335013 1 Tablet(s) PO QD 12/30/201506/19 Inactive [SAVINGS FOR NON-COVERED DRUGS -- BIN: 3585, PCN: ASPROD1, Group: XXXXX, ID# [id number], Questions: . THIS IS NOT INSURANCE.] Ambien 5 mg tablet RxNorm: 243539 TAKE 1 TABLET BY MOUTH EVERY DAY AT BEDTIME 11/15/2015 11/17/2016 Inactive simvastatin 40 mg tablet RxNorm: 506452 1 Tablet(s) PO QD 10/11/2015 01/12/2019 Inactive simvastatin 40 mg tablet RxNorm: 842277 1 Tablet(s) PO QD 10/08/2015 10/10/2015 Inactive Ambien 5 mg tablet RxNorm: 314894 TAKE 1 TABLET BY MOUTH EVERY NIGHT AT BEDTIME 07/27/2015 11/15/2015 Inactive Plavix 75 mg tablet RxNorm: 792480 1 Tablet(s) PO QD 06/28/201512/29 Inactive [SAVINGS FOR NON-COVERED DRUGS -- BIN:00 3585, PCN: ASPROD1, Group: XXXXX, ID# [id number], Questions: . THIS IS NOT INSURANCE.] Coreg 6.25 mg tablet RxNorm: 129450 1 TABLET(S) PO BID 04/19/2015 Inactive [SAVINGS FOR NON-COVERED DRUGS -- BIN:00 3585, PCN: ASPROD1, Group: XXXXX, ID# [id number], Questions: . THIS IS NOT INSURANCE.] simvastatin 40 mg tablet RxNorm: 755528 1 Tablet(s) PO QD 04/05/2015 04/04/2015 Inactive simvastatin 40 mg tablet RxNorm: 119541 1 Tablet(s) PO QD 04/05/2015 10/11/2015 Inactive Plavix 75 mg tablet RxNorm: 221714 1 TABLET(S) PO QD 03/22/201504/20 Inactive [SAVINGS FOR NON-COVERED DRUGS -- BIN:00 3585, PCN: ASPROD1, Group: XXXXX, ID# [id number], Questions: . THIS IS NOT INSURANCE.] Plavix 75 mg tablet RxNorm: 631429 1 Tablet(s) PO QD 03/22/201506/28 Inactive [SAVINGS FOR NON-COVERED DRUGS -- BIN:00 3585, PCN: ASPROD1, Group: XXXXX, ID# [id number], Questions: . THIS IS NOT INSURANCE.] Ambien 5 mg tablet RxNorm: 068695 1 Tablet(s) PO QHS 12/17/201407/28 Inactive [SAVINGS FOR NON-COVERED DRUGS -- BIN:00 3585, PCN: ASPROD1, Group: XXXXX, ID# [id number], Questions: . THIS IS NOT INSURANCE.] Coreg 6.25 mg tablet RxNorm: 620295 1 Tablet(s) PO BID 12/17/2014 Inactive [SAVINGS FOR NON-COVERED DRUGS -- BIN:00 3585, PCN: ASPROD1, Group: XXXXX, ID# [id number], Questions: . THIS IS NOT INSURANCE.] Plavix 75 mg tablet RxNorm: 590564 1 Tablet(s) PO QD 12/17/201403/16 Inactive [SAVINGS FOR NON-COVERED DRUGS -- BIN:00 3585, PCN: ASPROD1, Group: XXXXX, ID# [id number], Questions: . THIS IS NOT INSURANCE.] cyclobenzaprine 10 mg tablet RxNorm: 408844 1 Tablet(s) PO TID as needed for spasm 12/17/2014 03/16/2015 Inactive [SAVINGS FOR NON -COVERED DRUGS -- BIN:126994, PCN: ASPROD1, Group: XXXXX, ID# [id number], Questions: . THIS IS NOT INSURANCE.] Coreg 6.25 mg tablet RxNorm: 954705 1 Tablet(s) PO BID 10/21/201409/2014 Inactive [SAVINGS FOR NON-COVERED DRUGS -- BIN:00 3585, PCN: ASPROD1, Group: XXXXX, ID# XXXXXXX, Questions: . THIS IS NOT INSURANCE.] Plavix 75 mg tablet RxNorm: 615594 1 Tablet(s) PO QD 10/21/201412/16 Inactive [SAVINGS FOR NON-COVERED DRUGS -- BIN:00 3585, PCN: ASPROD1, Group: XXXXX, ID# XXXXXXX, Questions: . THIS IS NOT INSURANCE.] Plavix 75 mg tablet RxNorm: 019284 1 Tablet(s) PO QD Ne eds routine check up--last seen March 2012 09/21/2014 10/20/2014 Inactive [SAVINGS FOR UNINSURED PATIENTS -- BIN:073746, PCN: ASPROD1, Group: AME08, ID# [id number], Process claim through [employer], for questions: . THIS IS NOT INSURANCE.] Ambien 5 mg tablet RxNorm: 637528 1 Tablet(s) PO QHS 09/21/201412/16 Inactive [SAVINGS FOR UNINSURED PATIENTS -- BIN:0 99011, PCN: ASPROD1, Group: AME08, ID# [id number], Process claim through [employer], for questions: . THIS IS NOT INSURANCE.] Coreg 6.25 mg tablet RxNorm: 513871 1 Tablet(s) PO BID 09/21/201411/2014 Inactive [SAVINGS FOR UNINSURED PATIENTS -- BIN:0 62354, PCN: ASPROD1, Group: AME08, ID# [id number], Process claim through [employer], for questions: . THIS IS NOT INSURANCE.] Plavix 75 mg tablet RxNorm: 388024 1 Tablet(s) PO QD Ne eds routine check up--last seen March 2012 08/04/2014 09/02/2014 Inactive [SAVINGS FOR UNINSURED PATIENTS -- BIN:095747, PCN: ASPROD1, Group: AME08, ID# [id number], Process claim through [employer], for questions: . THIS IS NOT INSURANCE.] Plavix 75 mg tablet RxNorm: 308080 1 Tablet(s) PO QD Ne eds routine check up--last seen March 2012 08/03/2014 08/03/2014 Inactive Protonix 40 mg tablet,delayed release RxNorm: 476747 1 Tablet(s ) PO QD 06/08/2014 02/17/2019 Inactive [SAVINGS FOR UNINSUR ED PATIENTS -- BIN:812026, PCN: ASPROD1, Group: AME08, ID# [id number], Process claim through [employer], for questions: . THIS IS NOT INSURANCE.] hydrocodone 10 mg-acetaminophen 325 mg tablet RxNorm: 260298 1 Tablet(s) PO BID as needed for pain 02/18/2014 03/31/2015 Inactive Coreg 6.25 mg tablet RxNorm: 512188 1 Tablet(s) PO BID 02/02/2014 Inactive Protonix 40 mg granules delayed-release packet RxNorm: 130827 1 Tablet(s) PO QD 01/13/2014 06/08/2014 Inactive Plavix 75 mg tablet RxNorm: 147401 1 Tablet(s) PO QD Ne eds routine check up--last seen March 2012 01/13/2014 08/02/2014 Inactive Plavix 75 mg tablet RxNorm: 913361 1 Tablet(s) PO QD Ne eds routine check up--last seen March 2012 12/09/2013 01/07/2014 Inactive Coreg 6.25 mg tablet RxNorm: 251480 1 Tablet(s) PO BID 12/09/2013 Inactive Cymbalta 60 mg capsule,delayed release RxNorm: 938730 1 Capsule (s) PO QD 10/31/2013 01/12/2014 Inactive Coreg 6.25 mg tablet RxNorm: 566445 1 Tablet(s) PO BID 10/31/2013 Inactive Plavix 75 mg tablet RxNorm: 695418 1 Tablet(s) PO QD Ne eds routine check up--last seen March 2012 10/31/2013 11/29/2013 Inactive Coreg 6.25 mg tablet RxNorm: 730444 1 Tablet(s) PO BID 10/31/2013 Inactive atorvastatin 40 mg tablet RxNorm: 061846 1 Tablet(s) PO QD 10/31/1903/31/2015 Inactive Plavix 75 mg tablet RxNorm: 438899 1 Tablet(s) PO QD Ne eds routine check up--last seen March 2012 09/23/2013 10/30/2013 Inactive cyclobenzaprine 10 mg tablet RxNorm: 768871 1 Tablet(s) PO TID as needed for spasm 09/23/2013 No Stop Date Active cyclobenzaprine 10 mg tablet RxNorm: 716306 1 Tablet(s) PO TID as needed for spasm 07/04/2013 09/22/2013 Inactive atorvastatin 40 mg tablet RxNorm: 092669 1 Tablet(s) PO QD 06/23/20 13 10/30/2013 Inactive atorvastatin 40 mg tablet RxNorm: 429786 1 Tablet(s) PO QD 04/22/20 13 06/22/2013 Inactive Nucynta 50 mg tablet RxNorm: 842287 1-2 Tablet(s) PO Q6H as nee ded for pain 01/01/2013 01/12/2014 Inactive Ambien 5 mg tablet RxNorm: 207223 1 Tablet(s) PO QHS 10/16/201201/13 Inactive Plavix 75 mg tablet RxNorm: 623857 1 Tablet(s) PO QD 09/19/201209/13 Inactive Protonix 40 mg tablet,delayed release RxNorm: 382900 1 Tablet(s ) PO QD 09/19/2012 09/18/2012 Inactive simvastatin 40 mg tablet RxNorm: 431631 1 Tablet(s) PO QD 09/19/2012 02/23/2013 Inactive Protonix 40 mg tablet,delayed release RxNorm: 702747 1 Tablet(s ) PO QD 09/19/2012 09/13/2013 Inactive Ultram 50 mg tablet RxNorm: 650832 1-2 Tablet(s) PO QID as need ed for pain 09/19/2012 02/26/2017 Inactive propranolol 80 mg tablet RxNorm: 667247 1 Tablet(s) PO QHS 09/19/19 13 09/18/2012 Inactive Cymbalta 60 mg capsule,delayed release RxNorm: 590117 1 Capsule (s) PO QD 09/19/2012 09/18/2012 Inactive Cymbalta 60 mg capsule,delayed release RxNorm: 451156 1 Capsule (s) PO QD 09/19/2012 03/17/2013 Inactive propranolol 80 mg tablet RxNorm: 594210 1 Tablet(s) PO QHS 09/19/19 13 02/23/2013 Inactive hydrocodone-acetaminophen 10 mg-325 mg tablet RxNorm: 539933 2 1-2 Tablet(s) PO QID 07/25/2012 02/23/2013 Inactive Ambien 10 mg tablet RxNorm: 154796 1 Tablet(s) PO QHS as needed for sleep 07/10/2012 01/27/2013 Inactive propranolol 80 mg tablet RxNorm: 133128 1 Tablet(s) PO QHS 05/13/20 12 09/18/2012 Inactive hydrocodone-acetaminophen 10 mg-325 mg tablet RxNorm: 390538 2 1-2 Tablet(s) PO QID 05/02/2012 No Stop Date Active Restoril 15 mg Cap RxNorm: 530826 1-2 Capsule(s) PO QHS 05/02/2012 Inactive propranolol 80 mg tablet RxNorm: 145648 1 Tablet(s) PO QHS 05/02/20 12 05/12/2012 Inactive Chantix Starting Month Box 0.5 mg (11)-1 mg (42) Tabs in a Dose Pack RxNorm: 141780 Tablet(s) PO As Directed 04/01/2012 01/27/2013 Inactive simvastatin 40 mg tablet RxNorm: 414066 1 Tablet(s) PO QD 03/28/2012 09/18/2012 Inactive simvastatin 40 mg Tab RxNorm: 097517 1 Tablet(s) PO QD 03/22/201207/2012 Inactive Effient 10 mg Tab RxNorm: 939599 1 Tablet(s) PO QD 03/22/2012 012 Inactive Prilosec 40 mg Capsule, delayed release RxNorm: 800231 1 Capsul e(s) PO QD 03/22/2012 09/18/2012 Inactive Prilosec 40 mg Capsule, delayed release RxNorm: 220625 1 Capsul e(s) PO QD 03/19/2012 03/21/2012 Inactive Cymbalta 60 mg capsule,delayed release RxNorm: 416917 1 Capsule (s) PO QD 03/04/2012 08/30/2012 Inactive hydrocodone-acetaminophen 10 mg-325 mg Tab RxNorm: 4993949 1-2 T ablet(s) PO QID 01/23/2012 No Stop Date Active Cymbalta 60 mg Capsule, delayed release RxNorm: 483554 1 Capsul e(s) PO QD 01/23/2012 03/03/2012 Inactive Cipro 500 mg Tab RxNorm: 374049 1 Tablet(s) PO BID 12/20/2011 012 Inactive Cymbalta 60 mg Capsule, delayed release RxNorm: 938777 1 Capsul e(s) PO QD 12/13/2011 01/22/2012 Inactive nortriptyline 75 mg Cap RxNorm: 110806 1 Capsule(s) PO QHS 11/29/1904/02/2012 Inactive Cymbalta 60 mg Cap RxNorm: 681454 1 Capsule(s) PO QD 10/24/201112/11 Inactive propranolol 80 mg Tab RxNorm: 802594 1 Tablet(s) PO QHS 10/24/2011 Inactive hydrocodone-acetaminophen 10 mg-325 mg Tab RxNorm: 1159966 1-2 T ablet(s) PO QID 09/29/2011 No Stop Date Active hydrocodone-acetaminophen 10 mg-325 mg Tab RxNorm: 4704280 1-2 T ablet(s) PO QID 07/25/2011 No Stop Date Active hydrocodone-acetaminophen 10 mg-325 mg Tab RxNorm: 7233645 1-2 T ablet(s) PO QID 02/14/2011 No Stop Date Active Prilosec 40 mg Cap RxNorm: 529494 1 Capsule(s) PO 01/03/2011 01/13/20 19 Inactive nortriptyline 75 mg Cap RxNorm: 463652 1 Capsule(s) PO QHS 01/04/20 11 07/01/2011 Inactive Neurontin 600 mg Tab RxNorm: 184662 1 Tablet(s) PO QHS 12/08/201011/2011 Inactive hydrocodone-acetaminophen 5 mg-500 mg Tab RxNorm: 892437 2 Tablet(s) PO Q4-6H prn 10/20/2010 01/08/2011 Inactive Diltzac ER 240 mg Cap RxNorm: 738686 1 Capsule(s) PO QD 07/14/2010 Inactive Nortriptyline 75 mg Cap RxNorm: 366158 1 Capsule(s) PO QHS 05/09/20 10 01/12/2019 Inactive Neurontin 600 mg Tab RxNorm: 277944 1 Tablet(s) PO QD 03/17/201012/17 Inactive Nortriptyline 75 mg Cap RxNorm: 161500 1 Capsule(s) PO 01/12/2010 Inactive Nortriptyline 50 mg Cap RxNorm: 504563 1 Capsule(s) PO QHS 01/13/20 10 01/11/2010 Inactive Diltzac ER 240 mg Cap RxNorm: 054782 1 Capsule(s) PO QD 12/06/2009 Inactive aspirin 81 mg Tab RxNorm: 975956 1 Tablet(s) PO QD No Start Date Active Vitamin D3 2,000 unit tablet RxNorm: 906148 1 Tablet(s) PO QD No Star t Date Active [id number]-ufxfzkszr-[id number] complex no.233 oral RxNorm: oral No Start Date Active primidone 50 mg tablet RxNorm: 137203 2 Tablet(s) PO BID No Start Date Active Prilosec 40 mg Capsule, delayed release RxNorm: 475423 1 Capsul e(s) PO QD No Start Date 03/18/2012 Inactive Prilosec 20 mg Cap RxNorm: 879447 1 Capsule(s) PO QHS No Start Date 0 01/02/2011 Inactive primidone 50 mg tablet RxNorm: 264433 1/2 Tablet(s) PO QHS for 1week then go full tab if needed No Start Date 05/01/2017 Inactive ProAir HFA 90 mcg/actuation aerosol inhaler RxNorm: 121684 2 Puff(s) INH Q4H as needed No Start Date 10/29/2017 Inactive clonazepam 0.5 mg tablet RxNorm: 378794 1/2 Tablet(s) PO BID No Sta rt Date 02/12/2017 Inactive Pepcid AC 10 mg Tab RxNorm: 708447 1 Tablet(s) PO QAM No Start Date 0 02/19/2011 Inactive Coreg Oral RxNorm: Oral No Start Date 01/12/2014 Inactive primidone 50 mg tablet RxNorm: 407367 1/2 Tablet(s) PO QD for 7 days then increase to 1 tablet at bedtime No Start Date 01/08/2017 Inactive Medrol (Jose) 4 mg tablets in a dose pack RxNorm: 923382 Tablet(s) PO As Directed No Start Date 01/12/2016 Inactive Plavix 75 mg tablet RxNorm: 388006 1 Tablet(s) PO QD No Start Date Inactive cyclobenzaprine 10 mg tablet RxNorm: 346157 1 Tablet(s) PO TID as needed for spasm No Start Date 07/03/2013 Inactive Bevespi Aerosphere 9 mcg-4.8 mcg HFA aerosol inhaler RxNorm: 9757260 2 Puff(s) INH BID No Start Date 02/18/2019 Inactive tramadol 50 mg tablet RxNorm: 838100 1-2 Tablet(s) PO TID as ne eded for pain No Start Date 01/12/2019 Inactive clonazepam 1 mg tablet RxNorm: 138180 1 Tablet(s) PO QAM No Start D ate 09/18/2018 Inactive hydrocodone-acetaminophen 5 mg-500 mg Tab RxNorm: 698792 2 Tablet(s) PO Q4-6H prn No Start Date 10/19/2010 Inactive lisinopril 20 mg Tab RxNorm: 179384 1/2 Tablet(s) PO QD No Start Da te 03/12/2011 Inactive Lyrica 75 mg capsule RxNorm: 096744 1 Capsule(s) PO QHS No Start Da te 10/08/2019 Inactive Protonix 40 mg tablet,delayed release RxNorm: 089880 1 Tablet(s ) PO QD No Start Date 06/07/2014 Inactive Lipitor Oral RxNorm: Oral No Start Date 01/12/2014 Inactive primidone 50 mg tablet RxNorm: 492604 2 Tablet(s) PO QAM and 1 tablet at HS No Start Date 02/17/2019 Inactive hydrocodone-acetaminophen 10 mg-325 mg Tab RxNorm: 1194405 1-2 T ablet(s) PO QID No Start Date 02/13/2011 Inactive Ultram 50 mg tablet RxNorm: 621764 1-2 Tablet(s) PO QID as need ed for pain No Start Date 09/18/2012 Inactive Effient 10 mg Tab RxNorm: 039512 1 Tablet(s) PO QD No Start Date 01/2012 Inactive Bevespi Aerosphere 9 mcg-4.8 mcg HFA aerosol inhaler RxNorm: 1688152 2 Puff(s) INH BID No Start Date 10/29/2017 Inactive Neurontin Oral RxNorm: Oral No Start Date 01/12/2010 Inactive primidone 50 mg tablet RxNorm: 730118 1 Tablet(s) PO QD No Start Da te 01/12/2019 Inactive Chantix Starting Month Box 0.5 mg (11)-1 mg (42) Tabs in a Dose Pack RxNorm: 842461 Tablet(s) PO No Start Date 03/31/2012 Inactive atenolol 25 mg Tab RxNorm: 475069 1 Tablet(s) PO QD No Start Date 02/2012 Inactive Neurontin 600 mg Tab RxNorm: 021206 1 Tablet(s) PO QD No Start Date 0 03/16/2010 Inactive Nucynta 50 mg tablet RxNorm: 681934 1-2 Tablet(s) PO Q6H as nee ded for pain No Start Date 12/31/2012 Inactive simvastatin 40 mg Tab RxNorm: 529917 1 Tablet(s) PO QD No Start Date 03/21/2012 Inactive Medication Administered No Medication Administered data Immunizations Vaccine Codes Date Status Influenza CVX: 135 07/04/2017 Complete Results Observation Observation Code Item Item Code Result Date S ervice Location COMPLETE BLOOD COUNT [id number] WBC 4.9 10e9/L 09/30/19 20 Unknown COMPLETE BLOOD COUNT [id number] RBC 4.65 10e12/L 2019 Unknown COMPLETE BLOOD COUNT [id number] HEMOGLOBIN 13.8 g/dL 09/30/19 20 Unknown COMPLETE BLOOD COUNT [id number] HEMATOCRIT 42.3 % 09/30/19 20 Unknown COMPLETE BLOOD COUNT [id number] MCV 91.0 fL 0 Unknown COMPLETE BLOOD COUNT [id number] MCH 29.7 pg 0 Unknown COMPLETE BLOOD COUNT [id number] MCHC 32.6 g/dL 0 Unknown COMPLETE BLOOD COUNT [id number] PLATELET COUNT 230 10e9/L Unknown COMPLETE BLOOD COUNT [id number] Mean Plt Volume 9.9 fL Unknown COMPLETE BLOOD COUNT [id number] Neut Auto 52.5 % 0 Unknown COMPLETE BLOOD COUNT [id number] Lymph Auto 30.8 % 09/30/19 20 Unknown COMPLETE BLOOD COUNT [id number] [place] Auto 11.2 % 0 Unknown COMPLETE BLOOD COUNT [id number] RDW 13.5 % 0 Unknown COMPLETE BLOOD COUNT [id number] Eos Auto 5.1 % 0 Unknown COMPLETE BLOOD COUNT [id number] Baso Auto 0.4 % 0 Unknown COMPLETE BLOOD COUNT [id number] Neutrophil Abs 2.57 10e9/L Unknown COMPLETE BLOOD COUNT [id number] Lymphocyte Abs 1.51 10e9/L Unknown COMPLETE BLOOD COUNT [id number] Monocyte Abs 0.55 10e9/L 09/17 Unknown COMPLETE BLOOD COUNT [id number] Eosinophil Abs 0.25 10e9/L Unknown COMPLETE BLOOD COUNT [id number] RDW-SD 43.9 fL 0 Unknown COMPLETE BLOOD COUNT [id number] Basophil Abs 0.02 10e9/L 09/17 Unknown GFR CALC 9563996 GFR Non Afr Amr >60 mL/min 09/30/2019 Un known GFR CALC 7535972 GFR Afr Amr >60 mL/min 09/30/2019 Unknow n THYROID STIMULATING HORMONE 62568 TSH 1.129 uIU/mL 09/30/2019 Unknown PSA EQUIMOLAR BARBIE 54690 PSA Total 0.77 ng/mL 0 Unknown [facility] 89292 Cholesterol 192 mg/dL 09/30/2019 Unkno wn [facility] 48209 Triglyceride 86 mg/dL 09/30/2019 Unkn own L[facility] GROUP 49164 HDL CHOLESTEROL 64 mg/dL 09/30/2019 U nknown L[facility] GROUP 64241 Chol/HDL Ratio 3.00 ratio 09/30/2019 U nknown L[facility] GROUP 12171 NON-HDL Chol 128 mg/dL 09/30/2019 Unkn own L[facility] GROUP 08731 LDL Cholesterol 111 mg/dL 09/30/2019 U nknown COMPREHENSIVE METABOLIC 34304 AST 17 U/L 2019 Unknown COMPREHENSIVE METABOLIC 37502 ALT 10 U/L 2019 Unknown COMPREHENSIVE METABOLIC 17714 BUN 13 mg/dL 2019 Unknown COMPREHENSIVE METABOLIC 34758 ALBUMIN 4.3 g/dL 2019 Unknown COMPREHENSIVE METABOLIC 17748 CHLORIDE 102 mmol/L 09/30 Unknown COMPREHENSIVE METABOLIC 00773 Bili Total 0.6 mg/dL 09/30 Unknown COMPREHENSIVE METABOLIC 57814 ALK PHOS 91 U/L 2019 Unknown COMPREHENSIVE METABOLIC 74062 SODIUM 138 mmol/L 09/30 Unknown COMPREHENSIVE METABOLIC 83500 CREATININE 1.09 mg/dL 09/17 Unknown COMPREHENSIVE METABOLIC 91662 CALCIUM 9.0 mg/dL 2019 Unknown COMPREHENSIVE METABOLIC 51516 POTASSIUM 4.5 mmol/L 09/30 Unknown COMPREHENSIVE METABOLIC 96550 Total Protein 6.8 g/dL Unknown COMPREHENSIVE METABOLIC 99586 Glucose 91 mg/dL 2019 Unknown COMPREHENSIVE METABOLIC 21348 Bicarbonate 28 mmol/L 09/17 Unknown COMPREHENSIVE METABOLIC 85245 AGAP 8 mmol/L 2019 Unknown COMPLETE BLOOD COUNT [id number] WBC 4.9 10e9/L 09/04/20 18 Unknown COMPLETE BLOOD COUNT 7019999 RBC 4.42 10e12/L 2017 Unknown COMPLETE BLOOD COUNT 4861024 HEMOGLOBIN 13.4 g/dL 09/04/20 18 Unknown COMPLETE BLOOD COUNT [id number] HEMATOCRIT 40.5 % 09/04/20 18 Unknown COMPLETE BLOOD COUNT [id number] MCV 91.6 fL 8 Unknown COMPLETE BLOOD COUNT 2071727 MCH 30.3 pg 8 Unknown COMPLETE BLOOD COUNT 0914766 MCHC 33.1 g/dL 8 Unknown COMPLETE BLOOD COUNT 4107476 PLATELET COUNT 224 10e9/L Unknown COMPLETE BLOOD COUNT [id number] Mean Plt Volume 9.9 fL Unknown COMPLETE BLOOD COUNT [id number] Neut Auto 60.8 % 8 Unknown COMPLETE BLOOD COUNT [id number] Lymph Auto 26.8 % 09/04/20 18 Unknown COMPLETE BLOOD COUNT [id number] [place] Auto 10.4 % 8 Unknown COMPLETE BLOOD COUNT [id number] RDW 12.8 % 8 Unknown COMPLETE BLOOD COUNT 3803505 Eos Auto 1.6 % 8 Unknown COMPLETE BLOOD COUNT 5335805 Baso Auto 0.4 % 8 Unknown COMPLETE BLOOD COUNT [id number] Neutrophil Abs 2.98 10e9/L Unknown COMPLETE BLOOD COUNT [id number] Lymphocyte Abs 1.31 10e9/L Unknown COMPLETE BLOOD COUNT [id number] Monocyte Abs 0.51 10e9/L 08/17 Unknown COMPLETE BLOOD COUNT [id number] Eosinophil Abs 0.08 10e9/L Unknown COMPLETE BLOOD COUNT [id number] RDW-SD 41.6 fL 8 Unknown COMPLETE BLOOD COUNT [id number] Basophil Abs 0.02 10e9/L 08/17 Unknown COMPREHENSIVE METABOLIC 37833 AST 16 U/L 2017 Unknown COMPREHENSIVE METABOLIC 38188 ALT 8 U/L 2017 Unknown COMPREHENSIVE METABOLIC 78994 BUN 12 mg/dL 2017 Unknown COMPREHENSIVE METABOLIC 34147 ALBUMIN 4.4 g/dL 2017 Unknown COMPREHENSIVE METABOLIC 85944 CHLORIDE 107 mmol/L 09/04 Unknown COMPREHENSIVE METABOLIC 18582 Bili Total 1.0 mg/dL 09/04 Unknown COMPREHENSIVE METABOLIC 80812 ALK PHOS 58 U/L 2017 Unknown COMPREHENSIVE METABOLIC 73619 SODIUM 142 mmol/L 09/04 Unknown COMPREHENSIVE METABOLIC 42102 CREATININE 0.97 mg/dL 08/17 Unknown COMPREHENSIVE METABOLIC 89915 CALCIUM 9.2 mg/dL 2017 Unknown COMPREHENSIVE METABOLIC 78453 POTASSIUM 4.6 mmol/L 09/04 Unknown COMPREHENSIVE METABOLIC 68599 Total Protein 6.5 g/dL Unknown COMPREHENSIVE METABOLIC 01642 Glucose 96 mg/dL 2017 Unknown COMPREHENSIVE METABOLIC 79024 Bicarbonate 29 mmol/L 08/17 Unknown COMPREHENSIVE METABOLIC 71506 AGAP 6 mmol/L 2017 Unknown LIPID GROUP 86142 Cholesterol 182 mg/dL 09/04/2018 Unkno wn LIPID GROUP 87973 Triglyceride 84 mg/dL 09/04/2018 Unkn own LIPID GROUP 01413 HDL CHOLESTEROL 76 mg/dL 09/04/2018 U nknown LIPID GROUP 06538 Chol/HDL Ratio 2.39 ratio 09/04/2018 U nknown LIPID GROUP 62660 NON-HDL Chol 106 mg/dL 09/04/2018 Unkn own LIPID GROUP 19157 LDL Cholesterol 89 mg/dL 09/04/2018 U nknown GFR CALC 3632435 GFR Non Afr Amr >60 mL/min 09/04/2018 Un known GFR CALC 8212452 GFR Afr Amr >60 mL/min 09/04/2018 Unknow n THYROID STIMULATING HORMONE 57709 TSH 0.713 uIU/mL 09/04/2018 Unknown PSA EQUIMOLAR BARBIE 43748 PSA Total 0.66 ng/mL 8 Unknown A FOOD C P [id number] [place] Cl Class 0 11/17/2017 Unknown A FOOD C P [id number] [place] Ct <0.35 kU/L 11/17/2017 Unknow n A FOOD C P [id number] [place] Class 0 11/17/2017 Unkn own A FOOD C P [id number] [place] <0.35 kU/L 11/17/2017 Unk nown A FOOD C P [id number] Egg White Cl Class 0 11/17/2017 Unkno wn A FOOD C P 3587453 Egg White Ct <0.35 kU/L 11/17/2017 Unkn own A FOOD C P [id number] Egg Yolk Cl Class 0 11/17/2017 Unknow n A FOOD C P [id number] Egg Yolk Ct <0.35 kU/L 11/17/2017 Unkno wn A FOOD C P 9542853 Cow Milk Cl Class 0 11/17/2017 Unknow n A FOOD C P [id number] Cow Milk Ct <0.35 kU/L 11/17/2017 Unkno wn A FOOD C P 8796140 Peanut Cl Class 0 11/17/2017 Unknown A FOOD C P 2655012 Peanut Ct <0.35 kU/L 11/17/2017 Unknown A FOOD C P [id number] Shrimp Cl Class 0 11/17/2017 Unknown A FOOD C P [id number] Shrimp Ct <0.35 kU/L 11/17/2017 Unknown A FOOD C P [id number] [place] Cl Class 0 11/17/2017 Unknown A FOOD C P [id number] [place] Ct <0.35 kU/L 11/17/2017 Unknow n A FOOD C P [id number] Wheat Cl Class 0 11/17/2017 Unknown A FOOD C P [id number] Wheat Ct <0.35 kU/L 11/17/2017 Unknown A FOOD C P 7243870 Potato Cl Class 0 11/17/2017 Unknown A FOOD C P 7459104 Potato Ct <0.35 kU/L 11/17/2017 Unknown A FOOD C P 2145312 Beef Cl Class 2 11/17/2017 Unknown A FOOD C P 8996586 Beef Ct 0.88 kU/L 11/17/2017 Unknown A FOOD C P [id number] [place] Cl Class 0 11/17/2017 Unknown A FOOD C P [id number] [place] Ct <0.35 kU/L 11/17/2017 Unknown A FOOD C P [id number] Pork Cl Class 0 11/17/2017 Unknown A FOOD C P [id number] Pork Ct <0.35 kU/L 11/17/2017 Unknown A FOOD C P [id number] [place] Cl Class 0 11/17/2017 Unknown A FOOD C P [id number] [place] Ct <0.35 kU/L 11/17/2017 Unknown A FOOD C P [id number] [place] Cl Class 0 11/17/2017 Unkn own A FOOD C P [id number] [place] Ct <0.35 kU/L 11/17/2017 Unk nown A FOOD C P [id number] Tomato Cl Class 0 11/17/2017 Unknown A FOOD C P [id number] [place] Ct <0.35 kU/L 11/17/2017 Unknown A FOOD C P 3377437 T[place] Cl Class 0 11/17/2017 Unknown A FOOD C P [id number] [place]una Ct <0.35 kU/L 11/17/2017 Unknown A FOOD C P [id number] [place] [facility] Class 0 11/17/2017 Unknown A FOOD C P [id number] [place] <0.35 kU/L 11/17/2017 Unknown A FOOD C P 5535792 [place] Cl Class 0 11/17/2017 Unknown A FOOD C P [id number] [place] Ct <0.35 kU/L 11/17/2017 Unknown A FOOD C P [id number] Oat Cl Class 0 11/17/2017 Unknown A FOOD C P 7690931 Oat Ct <0.35 kU/L 11/17/2017 Unknown A FOOD C P 2528855 [place] Cl Class 0 11/17/2017 Unknown A FOOD C P [id number] [place] Ct <0.35 kU/L 11/17/2017 Unknown A FOOD C P [id number] Chicken Meat CL Class 0 11/17/2017 Un known A FOOD C P [id number] Chicken Meat Ct <0.35 kU/L 11/17/2017 U nknown A FOOD C P 6529042 [place] Cl Class 0 11/17/2017 Unknown A FOOD C P [id number] [place] Ct <0.35 kU/L 11/17/2017 Unknown A FOOD C P [id number] Pec[place] Meat Cl Class 0 11/17/2017 Unkn own A FOOD C P [id number] [place]ec[place] Meat Ct <0.35 kU/L 11/17/2017 Unk nown A NUTS PNL 6157568 Peanut Cl Class 0 11/17/2017 Unknown A NUTS PNL [id number] Peanut Ct <0.35 kU/L 11/17/2017 Unknown A NUTS PNL [id number] [place] Meat Cl Class 0 11/17/2017 Unk nown A NUTS PNL [id number] [place] [facility] <0.35 kU/L 11/17/2017 Un known A NUTS PNL [id number] [place] Meat Cl Class 0 11/17/2017 Unkn own A NUTS PNL 8775852 [place] Ct <0.35 kU/L 11/17/2017 Unk nown A NUTS PNL [id number] [place] Cl Class 0 11/17/2017 Unknown A NUTS PNL 4603878 [place] Ct <0.35 kU/L 11/17/2017 Unknown A NUTS PNL [id number] [place] Cl Class 0 11/17/2017 Unknow n A NUTS PNL [id number] [place] Ct <0.35 kU/L 11/17/2017 Unkno wn A NUTS PNL 9365434 [place] Cl Class 0 11/17/2017 Unkno wn A NUTS PNL 1387116 [place] Ct <0.35 kU/L 11/17/2017 Unkn own A NUTS PNL [id number] [place] Cl Class 0 11/17/2017 Unknown A NUTS PNL [id number] [place] Ct <0.35 kU/L 11/17/2017 Unknown A NUTS PNL [id number] [place] Cl Class 0 11/17/2017 Unkno wn A NUTS PNL [id number] [place] Ct <0.35 kU/L 11/17/2017 Unkn own A NUTS PNL [id number] Allergen Interp See Note 11/17/2017 Un known A FRT/VG P [id number] [place] Cl Class 0 11/17/2017 Unkn own A FRT/VG P [id number] [place] <0.35 kU/L 11/17/2017 Unk nown A FRT/VG P 7698795 [place] Cl Class 0 11/17/2017 Unknown A FRT/VG P [id number] [place] Ct <0.35 kU/L 11/17/2017 Unknown A FRT/VG P [id number] [place] Cl Class 0 11/17/2017 Unkn own A FRT/VG P [id number] [place] Ct <0.35 kU/L 11/17/2017 Unk nown A FRT/VG P [id number] [place] Cl Class 0 11/17/2017 Unknown A FRT/VG P [id number] [place] Ct <0.35 kU/L 11/17/2017 Unknown A FRT/VG P 3755878 [place] Cl Class 0 11/17/2017 Unknown A FRT/VG P [id number] [place] Ct <0.35 kU/L 11/17/2017 Unknown A FRT/VG P [id number] [place] Cl Class 1 11/17/2017 Unknown A FRT/VG P 8075696 [place] Ct 0.48 kU/L 11/17/2017 Unknown A FRT/VG P 5651670 [place] Fruit Cl Class 0 11/17/2017 Unk nown A FRT/VG P 3274084 [place] [facility] <0.35 kU/L 11/17/2017 Un known A FRT/VG P 8704637 [place] Fruit Cl Class 0 11/17/2017 Unk nown A FRT/VG P [id number] [place] Ct <0.35 kU/L 11/17/2017 Un known A FRT/VG P [id number] [place] Cl Class 0 11/17/2017 Unknown A FRT/VG P [id number] [place] Ct <0.35 kU/L 11/17/2017 Unknown A FRT/VG P 7544006 [place] Cl Class 0 11/17/2017 Unknown A FRT/VG P 5083071 [place] Ct <0.35 kU/L 11/17/2017 Unknown A FRT/VG P 4375923 [place] Fruit Cl Class 0 11/17/2017 Unkn own A FRT/VG P [id number] [place] Ct <0.35 kU/L 11/17/2017 Unk nown A FRT/VG P [id number] Swt [place] Cl Class 0 11/17/2017 Unkn own A FRT/VG P [id number] Swt [place] Ct <0.35 kU/L 11/17/2017 Unk nown THYROID STIMULATING HORMONE 73424 TSH 1.371 uIU/mL 09/03/2017 Unknown FREE T4 92113 T4 Free 1.26 ng/dL 09/03/2017 Unknown ASSAY TRIIODOTHYRONINE (T3) 82347 T3 Total 0.9 ng/mL Unknown COMPLETE BLOOD COUNT [id number] WBC 5.9 10e9/L 07/31/20 17 Unknown COMPLETE BLOOD COUNT [id number] RBC 4.64 10e12/L 2016 Unknown COMPLETE BLOOD COUNT 7897776 HEMOGLOBIN 14.2 g/dL 07/31/20 17 Unknown COMPLETE BLOOD COUNT 1207390 HEMATOCRIT 42.1 % 07/31/20 17 Unknown COMPLETE BLOOD COUNT [id number] MCV 90.7 fL 7 Unknown COMPLETE BLOOD COUNT 7530006 MCH 30.6 pg 7 Unknown COMPLETE BLOOD COUNT 1429331 MCHC 33.7 g/dL 7 Unknown COMPLETE BLOOD COUNT 6488412 PLATELET COUNT 195 10e9/L Unknown COMPLETE BLOOD COUNT 1862331 Mean Plt Volume 10.0 fL Unknown COMPLETE BLOOD COUNT 5048435 Neut Auto 47.5 % 7 Unknown COMPLETE BLOOD COUNT 5121683 Lymph Auto 37.4 % 07/31/20 17 Unknown COMPLETE BLOOD COUNT 4564658 [place] Auto 11.7 % 7 Unknown COMPLETE BLOOD COUNT 6052727 Eos Auto 3.2 % 7 Unknown COMPLETE BLOOD COUNT [id number] RDW 12.8 % 7 Unknown COMPLETE BLOOD COUNT [id number] Baso Auto 0.2 % 7 Unknown COMPLETE BLOOD COUNT [id number] Neutrophil Abs 2.80 10e9/L Unknown COMPLETE BLOOD COUNT 7680798 Lymphocyte Abs 2.21 10e9/L Unknown COMPLETE BLOOD COUNT [id number] Monocyte Abs 0.69 10e9/L 07/18 Unknown COMPLETE BLOOD COUNT 1845856 Eosinophil Abs 0.19 10e9/L Unknown COMPLETE BLOOD COUNT [id number] RDW-SD 41.6 fL 201 7 Unknown COMPLETE BLOOD COUNT 6365371 Basophil Abs 0.01 10e9/L 07/18 Unknown LIPID GROUP 56451 Cholesterol 186 mg/dL 07/31/2017 Unkno wn LIPID GROUP 46268 Triglyceride 129 mg/dL 07/31/2017 Unkn own LIPID GROUP 08705 HDL CHOLESTEROL 79 mg/dL 07/31/2017 U nknown LIPID GROUP 12629 Chol/HDL Ratio 2.35 ratio 07/31/2017 U nknown LIPID GROUP 98858 NON-HDL Chol 107 mg/dL 07/31/2017 Unkn own LIPID GROUP 60938 LDL Cholesterol 81 mg/dL 07/31/2017 U nknown GFR CALC 8335235 GFR Non Afr Amr >60 mL/min 07/31/2017 Un known GFR CALC 5181397 GFR Afr Amr >60 mL/min 07/31/2017 Unknow n COMPREHENSIVE METABOLIC 66406 AST 19 U/L 2016 Unknown COMPREHENSIVE METABOLIC 78692 ALT 12 U/L 2016 Unknown COMPREHENSIVE METABOLIC 00279 BUN 15 mg/dL 2016 Unknown COMPREHENSIVE METABOLIC 68730 ALBUMIN 4.4 g/dL 2016 Unknown COMPREHENSIVE METABOLIC 19840 CHLORIDE 102 mmol/L 07/31 Unknown COMPREHENSIVE METABOLIC 10759 Bili Total 0.9 mg/dL 07/31 Unknown COMPREHENSIVE METABOLIC 13891 ALK PHOS 53 U/L 2016 Unknown COMPREHENSIVE METABOLIC 00793 SODIUM 138 mmol/L 07/31 Unknown COMPREHENSIVE METABOLIC 31390 CREATININE 1.06 mg/dL 07/18 Unknown COMPREHENSIVE METABOLIC 24773 CALCIUM 9.3 mg/dL 2016 Unknown COMPREHENSIVE METABOLIC 64672 POTASSIUM 4.0 mmol/L 07/31 Unknown COMPREHENSIVE METABOLIC 03183 Total Protein 6.8 g/dL Unknown COMPREHENSIVE METABOLIC 48972 Glucose 86 mg/dL 2016 Unknown COMPREHENSIVE METABOLIC 05097 Bicarbonate 28 mmol/L 07/18 Unknown COMPREHENSIVE METABOLIC 88775 AGAP 8 mmol/L 2016 Unknown COMPREHENSIVE METABOLIC 64152 AST 18 U/L 2015 Unknown COMPREHENSIVE METABOLIC 98619 ALT 9 U/L 2015 Unknown COMPREHENSIVE METABOLIC 99830 BUN 11 mg/dL 2015 Unknown COMPREHENSIVE METABOLIC 75758 ALBUMIN 4.2 g/dL 2015 Unknown COMPREHENSIVE METABOLIC 45835 CHLORIDE 104 mmol/L 05/19 Unknown COMPREHENSIVE METABOLIC 72247 Bili Total 1.2 mg/dL 05/19 Unknown COMPREHENSIVE METABOLIC 50697 ALK PHOS 54 U/L 2015 Unknown COMPREHENSIVE METABOLIC 16832 SODIUM 140 mmol/L 05/19 Unknown COMPREHENSIVE METABOLIC 67941 CREATININE 1.03 mg/dL 10/2015 Unknown COMPREHENSIVE METABOLIC 18286 CALCIUM 9.3 mg/dL 2015 Unknown COMPREHENSIVE METABOLIC 14527 POTASSIUM 4.9 mmol/L 05/19 Unknown COMPREHENSIVE METABOLIC 29432 Total Protein 6.7 g/dL Unknown COMPREHENSIVE METABOLIC 49623 Glucose 92 mg/dL 2015 Unknown COMPREHENSIVE METABOLIC 88314 Bicarbonate 28 mmol/L 10/2015 Unknown COMPREHENSIVE METABOLIC 63398 AGAP 8 mmol/L 2015 Unknown THYROID STIMULATING HORMONE 41334 TSH 1.545 uIU/mL 05/19/2016 Unknown GFR CALC 6413013 GFR Non Afr Amr >60 mL/min 05/19/2016 Un known GFR CALC 5133071 GFR Afr Amr >60 mL/min 05/19/2016 Unknow n VITAMIN B 12 95647 VITAMIN B12 298 pg/mL 05/19/2016 Unkn own COMPLETE BLOOD COUNT [id number] WBC 5.2 10e9/L 05/19/20 16 Unknown COMPLETE BLOOD COUNT 3609327 RBC 4.34 10e12/L 2015 Unknown COMPLETE BLOOD COUNT 3024685 HEMOGLOBIN 12.9 g/dL 05/19/20 16 Unknown COMPLETE BLOOD COUNT 9749539 HEMATOCRIT 38.9 % 05/19/20 16 Unknown COMPLETE BLOOD COUNT [id number] MCV 89.6 fL 6 Unknown COMPLETE BLOOD COUNT [id number] MCH 29.7 pg 6 Unknown COMPLETE BLOOD COUNT 9280442 MCHC 33.2 g/dL 6 Unknown COMPLETE BLOOD COUNT 1441618 PLATELET COUNT 200 10e9/L 10/2015 Unknown COMPLETE BLOOD COUNT 5022610 Mean Plt Volume 10.1 fL 10/2015 Unknown COMPLETE BLOOD COUNT 9982392 Neut Auto 45.4 % 6 Unknown COMPLETE BLOOD COUNT 3041452 Lymph Auto 35.6 % 05/19/20 16 Unknown COMPLETE BLOOD COUNT 2154869 [place] Auto 11.9 % 6 Unknown COMPLETE BLOOD COUNT 4511301 RDW 12.7 % 6 Unknown COMPLETE BLOOD COUNT 3554867 Eos Auto 6.7 % 6 Unknown COMPLETE BLOOD COUNT 0808622 Baso Auto 0.4 % 6 Unknown COMPLETE BLOOD COUNT 2888597 Neutrophil Abs 2.36 10e9/L Unknown COMPLETE BLOOD COUNT 7692756 Lymphocyte Abs 1.85 10e9/L Unknown COMPLETE BLOOD COUNT 3368279 Monocyte Abs 0.62 10e9/L 10/2015 Unknown COMPLETE BLOOD COUNT [id number] Eosinophil Abs 0.35 10e9/L Unknown COMPLETE BLOOD COUNT 1060057 RDW-SD 40.6 fL 6 Unknown COMPLETE BLOOD COUNT 5874426 Basophil Abs 0.02 10e9/L 10/2015 Unknown LIPID GROUP 88360 Cholesterol 197 mg/dL 05/19/2016 Unkno wn LIPID GROUP 39433 Triglyceride 92 mg/dL 05/19/2016 Unkn own LIPID GROUP 80289 HDL CHOLESTEROL 58 mg/dL 05/19/2016 U nknown LIPID GROUP 37476 Chol/HDL Ratio 3.40 ratio 05/19/2016 U nknown LIPID GROUP 46510 NON-HDL Chol 139 mg/dL 05/19/2016 Unkn own LIPID GROUP 74278 LDL Cholesterol 121 mg/dL 05/19/2016 U nknown FREE T4 58584 T4 Free 1.19 ng/dL 05/19/2016 Unknown COMPREHENSIVE METABOLIC 65264 AST 19 U/L 2014 Unknown COMPREHENSIVE METABOLIC 21594 ALT 10 IU/L 2014 Unknown COMPREHENSIVE METABOLIC 88741 BUN 20 MG/DL 2014 Unknown COMPREHENSIVE METABOLIC 01454 ALBUMIN 4.4 GM/DL 2014 Unknown COMPREHENSIVE METABOLIC 87151 CHLORIDE 104 MMOL/L 04/05 Unknown COMPREHENSIVE METABOLIC 15316 BILI TOT 2.2 MG/DL 2014 Unknown COMPREHENSIVE METABOLIC 27635 ALK PHOS 55 U/L 2014 Unknown COMPREHENSIVE METABOLIC 42607 SODIUM 138 MMOL/L 04/05 Unknown COMPREHENSIVE METABOLIC 27597 CREATININE 1.04 MG/DL 03/18 Unknown COMPREHENSIVE METABOLIC 44602 CALCIUM 9.3 MG/DL 2014 Unknown COMPREHENSIVE METABOLIC 12205 POTASSIUM 4.5 MMOL/L 04/05 Unknown COMPREHENSIVE METABOLIC 10340 PROT TOT 6.7 GM/DL 2014 Unknown COMPREHENSIVE METABOLIC 31767 Glucose 77 MG/DL 2014 Unknown COMPREHENSIVE METABOLIC 68499 BICARB 25 MMOL/L 2014 Unknown COMPREHENSIVE METABOLIC 02670 ANION GAP 9 MEQ/L 2014 Unknown GFR CALC 0463576 GFR AA >60 ML/MIN 04/05/2015 Unknown GFR CALC 5781637 GFR NON-AA >60 ML/MIN 04/05/2015 Unknown LIPID GROUP 86185 HDL TEST 60 MG/DL 04/05/2015 Unknown LIPID GROUP 08237 TRIG 70 MG/DL 04/05/2015 Unknown LIPID GROUP 42539 TEST LDL 137 MG/DL 04/05/2015 Unknown LIPID GROUP 07611 CHOL 211 MG/DL 04/05/2015 Unknown LIPID GROUP 14952 RCHOL/HDL 3.52 RATIO 04/05/2015 Unknow n LIPID GROUP 40123 NON-HDL CH 151 MG/DL 04/05/2015 Unknow n COMPLETE BLOOD COUNT 1153539 WBC 5.3 10e9/L 04/05/20 15 Unknown COMPLETE BLOOD COUNT [id number] RBC 4.42 10e12/L 2014 Unknown COMPLETE BLOOD COUNT 5080213 HGB 13.4 g/dL 5 Unknown COMPLETE BLOOD COUNT 9060144 HCT DET 39.6 % 5 Unknown COMPLETE BLOOD COUNT 8230847 MCV 89.6 fL 5 Unknown COMPLETE BLOOD COUNT 9252897 MCH 30.3 pg 5 Unknown COMPLETE BLOOD COUNT 7826294 MCHC 33.8 g/dL 5 Unknown COMPLETE BLOOD COUNT [id number] PLT 201 10e9/L 04/05/20 15 Unknown COMPLETE BLOOD COUNT [id number] MPV 10.3 fL 5 Unknown COMPLETE BLOOD COUNT 2858106 LUPE % 56.4 % 5 Unknown COMPLETE BLOOD COUNT [id number] LY % 24.8 % 5 Unknown COMPLETE BLOOD COUNT [id number] MON % 12.8 % 5 Unknown COMPLETE BLOOD COUNT [id number] EOS % 5.4 % 5 Unknown COMPLETE BLOOD COUNT [id number] BASO % 0.6 % 5 Unknown COMPLETE BLOOD COUNT [id number] RDW 13.2 % 5 Unknown COMPLETE BLOOD COUNT [id number] ABS LUPE 2.99 10e9/L 015 Unknown COMPLETE BLOOD COUNT [id number] ABS LYMPH 1.31 10e9/L 015 Unknown COMPLETE BLOOD COUNT [id number] ABS MONO 0.68 10e9/L 015 Unknown COMPLETE BLOOD COUNT [id number] ABS EOS 0.29 10e9/L 015 Unknown COMPLETE BLOOD COUNT [id number] ABS BASO 0.03 10e9/L 015 Unknown COMPLETE BLOOD COUNT [id number] RDW-SD 42.3 fL 5 Unknown LIPID GROUP 17075 HDL TEST 51 MG/DL 07/19/2012 Unknown LIPID GROUP 88170 TRIG 129 MG/DL 07/19/2012 Unknown LIPID GROUP 06341 TEST LDL 98 MG/DL 07/19/2012 Unknown LIPID GROUP 70273 CHOL 175 MG/DL 07/19/2012 Unknown LIPID GROUP 13773 RCHOL/HDL 3.43 RATIO 07/19/2012 Unknow n COMPREHENSIVE METABOLIC 34901 AST 18 U/L 2011 Unknown COMPREHENSIVE METABOLIC 90659 ALT 12 IU/L 2011 Unknown COMPREHENSIVE METABOLIC 40749 BUN 10 MG/DL 2011 Unknown COMPREHENSIVE METABOLIC 17664 ALBUMIN 4.1 GM/DL 2011 Unknown COMPREHENSIVE METABOLIC 74916 CHLORIDE 103 MMOL/L 07/19 Unknown COMPREHENSIVE METABOLIC 62973 BILI TOT 0.9 MG/DL 2011 Unknown COMPREHENSIVE METABOLIC 46610 ALK PHOS 62 U/L 2011 Unknown COMPREHENSIVE METABOLIC 04878 SODIUM 138 MMOL/L 07/19 Unknown COMPREHENSIVE METABOLIC 11845 CREATININE 1.08 MG/DL 10/2011 Unknown COMPREHENSIVE METABOLIC 77183 CALCIUM 9.1 MG/DL 2011 Unknown COMPREHENSIVE METABOLIC 77641 POTASSIUM 4.2 MMOL/L 07/19 Unknown COMPREHENSIVE METABOLIC 76770 PROT TOT 6.7 GM/DL 2011 Unknown COMPREHENSIVE METABOLIC 11359 Glucose 101 MG/DL 2011 Unknown COMPREHENSIVE METABOLIC 84559 BICARB 27 MMOL/L 2011 Unknown COMPREHENSIVE METABOLIC 20706 ANION GAP 8 MEQ/L 2011 Unknown GFR CALC [id number] GFR AA >60 ML/MIN 07/19/2012 Unknown GFR CALC 8696419 GFR NON-AA >60 ML/MIN 07/19/2012 Unknown Procedures Procedure Codes Date ROUTINE VENIPUNCTURE CPT-4: 60806 09/30/2019 COMPREHEN METABOLIC PANEL CPT-4: 17664 09/30/2019 COMPLETE CBC W/AUTO DIFF WBC CPT-4: 91723 09/30/2019 ASSAY OF PSA TOTAL CPT-4: 87254 09/30/2019 ASSAY THYROID STIM HORMONE CPT-4: 49261 09/30/2019 LIPID PANEL CPT-4: 95366 09/30/2019 ROUTINE VENIPUNCTURE CPT-4: 48625 09/24/2019 COMPLETE CBC W/AUTO DIFF WBC CPT-4: 10687 09/24/2019 COMPREHEN METABOLIC PANEL CPT-4: 14070 09/24/2019 LIPID PANEL CPT-4: 18845 09/24/2019 ASSAY THYROID STIM HORMONE CPT-4: 84215 09/24/2019 THER/PROPH/DIAG INJ SC/IM CPT-4: 65026 01/13/2019 TRIAMCINOLONE ACET INJ NOS CPT-4: J3301 01/13/2019 DEXAMETHASONE SODIUM PHOS CPT-4: J1100 01/13/2019 ROUTINE VENIPUNCTURE CPT-4: 04705 09/04/2018 COMPREHEN METABOLIC PANEL CPT-4: 47813 09/04/2018 COMPLETE CBC W/AUTO DIFF WBC CPT-4: 66180 09/04/2018 LIPID PANEL CPT-4: 23023 09/04/2018 ASSAY OF PSA TOTAL CPT-4: 97125 09/04/2018 ASSAY THYROID STIM HORMONE CPT-4: 84309 09/04/2018 URINALYSIS NONAUTO W/O SCOPE CPT-4: 52836 05/15/2018 ROUTINE VENIPUNCTURE CPT-4: 08369 11/16/2017 A FRT/VG P CPT-4: 4725214 11/16/2017 A FOOD C P CPT-4: 3597631 11/16/2017 A NUTS PNL CPT-4: 5958789 11/16/2017 THER/PROPH/DIAG INJ SC/IM CPT-4: 94405 11/06/2017 TRIAMCINOLONE ACET INJ NOS CPT-4: J3301 11/06/2017 DEXAMETHASONE SODIUM PHOS CPT-4: J1100 11/06/2017 ROUTINE VENIPUNCTURE CPT-4: 95187 09/03/2017 ASSAY OF FREE THYROXINE CPT-4: 53840 09/03/2017 ASSAY THYROID STIM HORMONE CPT-4: 07622 09/03/2017 ASSAY TRIIODOTHYRONINE (T3) CPT-4: 01727 09/03/2017 ROUTINE VENIPUNCTURE CPT-4: 87847 07/31/2017 COMPREHEN METABOLIC PANEL CPT-4: 95605 07/31/2017 COMPLETE CBC W/AUTO DIFF WBC CPT-4: 20061 07/31/2017 LIPID PANEL CPT-4: 19991 07/31/2017 FLU VACC PRSV FREE INC ANTIG 65 AND OLDER CPT-4: 49541 07/04/2017 ADMIN INFLUENZA VIRUS VAC CPT-4: G0008 07/04/2017 ROUTINE VENIPUNCTURE CPT-4: 57518 02/26/2017 ASSAY THYROID STIM HORMONE CPT-4: 04784 02/26/2017 COMPREHEN METABOLIC PANEL CPT-4: 97429 02/26/2017 COMPLETE CBC W/AUTO DIFF WBC CPT-4: 17223 02/26/2017 LIPID PANEL CPT-4: 97896 02/26/2017 ASSAY OF PSA TOTAL CPT-4: 84933 02/26/2017 FLUZONE, 5ML (Medicare) CPT-4: Q2038 06/28/2016 ADMIN INFLUENZA VIRUS VAC CPT-4: G0008 06/28/2016 ROUTINE VENIPUNCTURE CPT-4: 61500 05/19/2016 ASSAY OF FREE THYROXINE CPT-4: 36758 05/19/2016 ASSAY THYROID STIM HORMONE CPT-4: 62825 05/19/2016 COMPREHEN METABOLIC PANEL CPT-4: 36353 05/19/2016 COMPLETE CBC W/AUTO DIFF WBC CPT-4: 63536 05/19/2016 LIPID PANEL CPT-4: 88197 05/19/2016 VITAMIN B-12 CPT-4: 82306 05/19/2016 PPPS, initial visit CPT-4: G0438 05/10/2016 ROUTINE VENIPUNCTURE CPT-4: 65871 04/05/2015 ASSAY THYROID STIM HORMONE CPT-4: 55421 04/05/2015 COMPREHEN METABOLIC PANEL CPT-4: 41833 04/05/2015 COMPLETE CBC W/AUTO DIFF WBC CPT-4: 63875 04/05/2015 LIPID PANEL CPT-4: 72468 04/05/2015 ASSAY OF PSA TOTAL CPT-4: 47463 04/05/2015 ROUTINE VENIPUNCTURE CPT-4: 05582 07/19/2012 COMPREHEN METABOLIC PANEL CPT-4: 06923 07/19/2012 LIPID PANEL CPT-4: 28998 07/19/2012 ELECTROCARDIOGRAM COMPLETE CPT-4: 79825 03/22/2012 Vital Signs Date Vital 09/24/2019 Blood Pressure 1: 125/72 Code: 8480-6 BMI: 19.8 Code: 25818-1 Heart Rate 1: 88 bpm Height: 5'11" [...] 1: 102/60 Code: 8480-6 BMI: 19.1 Code: 36617-5 Heart Rate 1: 82 bpm Height: 5'11" Respiratory Rate: 22 bpm SpO2: 97% Tempera ture: 36.4 (C) / 97.6 (F) Weight: 137 lbs 04/25/2018 Blood Pressure 1: 118/64 Code: 8480-6 BMI: 19.2 Code: 20236-7 Heart Rate 1: 98 bpm Height: 5'11" Respiratory Rate: 20 bpm SpO2: 99% Tempera ture: 36.4 (C) / 97.6 (F) Weight: 138 lbs 11/06/2017 Blood Pressure 1: 108/68 Code: 8480-6 BMI: 18.5 Code: 64035-6 Heart Rate 1: 68 bpm Height: 5'11" Respiratory Rate: 20 bpm SpO2: 96% Tempera ture: 36.8 (C) / 98.2 (F) Weight: 133 lbs 09/03/2017 Blood Pressure 1: 122/64 Code: 8480-6 BMI: 17.6 Code: 92327-2 Heart Rate 1: 90 bpm Height: 5'11" Respiratory Rate: 20 bpm SpO2: 98% Tempera ture: 36.4 (C) / 97.6 (F) Weight: 126 lbs 08/21/2017 Blood Pressure 1: 114/80 Code: 8480-6 BMI: 17.9 Code: 29596-7 Heart Rate 1: 80 bpm Height: 5'11" Respiratory Rate: 20 bpm SpO2: 95% Tempera ture: 36.6 (C) / 97.9 (F) Weight: 128 lbs 02/13/2017 Blood Pressure 1: 122/60 Code: 8480-6 BMI: 18.5 Code: 80984-7 Heart Rate 1: 76 bpm Height: 5'11" Respiratory Rate: 20 bpm SpO2: 96% Tempera ture: 36.9 (C) / 98.4 (F) Weight: 133 lbs 11/23/2016 Blood Pressure 1: 126/70 Code: 8480-6 BMI: 18.5 Code: 53127-9 Heart Rate 1: 100 bpm Height: 5'11" Respiratory Rate: 20 bpm SpO2: 96% Tempera ture: 37.1 (C) / 98.8 (F) Weight: 133 lbs 05/23/2016 Blood Pressure 1: 128/82 Code: 8480-6 BMI: 18.5 Code: 86154-0 Heart Rate 1: 88 bpm Height: 5'11" Respiratory Rate: 20 bpm Temperature: 36 .7 (C) / 98.0 (F) Weight: 133 lbs 05/10/2016 Blood Pressure 1: 146/70 Code: 8480-6 BMI: 18.5 Code: 71966-8 Heart Rate 1: 84 bpm Height: 5'11" Respiratory Rate: 20 bpm Temperature: 36 .7 (C) / 98.1 (F) Weight: 133 lbs 04/01/2015 Blood Pressure 1: 102/60 Code: 8480-6 BMI: 18.5 Code: 98338-3 Heart Rate 1: 64 bpm Height: 5'11" Respiratory Rate: 20 bpm Temperature: 36 .8 (C) / 98.2 (F) Weight: 133 lbs 01/13/2014 Blood Pressure 1: 124/78 Code: 8480-6 BMI: 19.8 Code: 09415-8 Heart Rate 1: 76 bpm Height: 5'11" Respiratory Rate: 20 bpm Temperature: 36 .8 (C) / 98.2 (F) Weight: 142 lbs 04/03/2012 Blood Pressure 1: 106/76 Code: 8480-6 BMI: 20.9 Code: 24923-0 Heart Rate 1: 84 bpm Height: 5'11" Respiratory Rate: 20 bpm Temperature: 36 .7 (C) / 98.0 (F) Weight: 150 lbs 12/20/2011 Blood Pressure 1: 116/60 Code: 8480-6 BMI: 20.1 Code: 03900-3 Heart Rate 1: 80 bpm Height: 5'11" Respiratory Rate: 20 bpm Temperature: 36 .4 (C) / 97.6 (F) Weight: 144 lbs 10/24/2011 Blood Pressure 1: 132/74 Code: 8480-6 BMI: 19.7 Code: 14965-5 Heart Rate 1: 96 bpm Height: 5'11" [...] 04/05/2015 follow up 04/01/2015 follow up 01/13/2014 [facility] November 2012 lab draw 07/19/2012 follow up 04/03/2012 S/P stent placement in LAD, changed effient to plavix hip pain 12/20/2011 dyskinesia or tremor 10/24/2011 follow up 03/13/2011 started on effient, zocor, and atenolol follow up 02/20/2011 [facility]/Dr Christian rojas follow up 02/23/2010 [facility], appt with Dr Bajwa 03/22/10 insomnia 01/12/2010 problems falling and staying asleep, takes nortriptyline Encounters Encounter Performer Location Codes Date ([id number]) OFFICE/OUTPATIENT VISIT EST Diagnosis: Essential tremor[ICD10: G25.0] [facility] 37718 12/24/2019 ([id number]) NURSE/OUTPATIENT VISIT EST Diagnosis: Essential (primary) hypertension[ICD10: I10] Diagnosis: Mixed hyperlipidemia[ICD10: E78.2] Diagnosis: Encounter for screening for malignant neoplasm of prostate[ICD10: Z12.5] Vonnie Loza [employer] CPT-4: 56341 09/30/2019 ([id number]) OFFICE/OUTPATIENT VISIT EST Diagnosis: Encounter for therapeutic drug level monitoring[ICD10: Z51.81] Diagnosis: Essential tremor[ICD10: G25.0] Verna Ramirez VONNIE Alvarez [employer] CPT-4: 41490 09/24/2019 ([id number]) OFFICE/OUTPATIENT VISIT EST Diagnosis: Noninfective gastroenteritis and colitis, unspecified[ICD10: K52.9] Diagnosis: Hemorrhage of anus and rectum[ICD10: K62.5] Vonnie Loza [employer] CPT-4: 31406 05/26/2019 ([id number]) OFFICE/OUTPATIENT VISIT EST Diagnosis: Other intervertebral disc degeneration, 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] Diagnosis: Other forms of dyspnea[ICD10: R06.09] Vonnie MATHEWS [employer] CPT-4: 40187 03/17/2019 OFFICE/OUTPATIENT VISIT EST Diagnosis: Other intervertebral disc degeneration, 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] Diagnosis: Other symptoms and signs involving the musculoskeletal system[ICD10: R29.898] Vonnie MATHEWS [employer] [facility] CPT-4: 00453 02/18/2019 ([id number]) OFFICE/OUTPATIENT VISIT EST Diagnosis: Other allergic rhinitis[ICD10: J30.89] Akilah ALBERTO [employer] [facility] CPT-4: 57216 01/13/2019 ([id number]) NURSE/OUTPATIENT VISIT EST Diagnosis: Mixed hyperlipidemia[ICD10: E78.2] Diagnosis: Essential (primary) hypertension[ICD10: I10] Diagnosis: Encounter for screening for malignant neoplasm of prostate[ICD10: Z12.5] Diagnosis: Encounter for general adult medical examination with abnormal findings[ICD10: Z00.01] Diagnosis: Benign prostatic hyperplasia without lower urinary tract symptoms[ICD10: N40.0] Vonnie MATHEWS [employer] [facility] CPT-4: 06475 09/04/2018 ([id number]) OFFICE/OUTPATIENT VISIT EST Diagnosis: Otorrhea, left ear[ICD10: H92.12] Diagnosis: Impacted cerumen, right ear[ICD10: H61.21] Verna MATHEWS [employer] [facility] CPT-4: 15479 09/03/2018 ([id number]) OFFICE/OUTPATIENT VISIT EST Diagnosis: Other intervertebral disc degeneration, 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] Diagnosis: Primary insomnia[ICD10: F51.01] Diagnosis: Essential tremor[ICD10: G25.0] Vonnie MATHEWS [employer] [facility] CPT-4: 22362 08/26/2018 ([id number]) OFFICE/OUTPATIENT VISIT EST Diagnosis: Pelvic and perineal pain[ICD10: R10.2] Verna ALBERTO [employer] CorporationVISHAL Loza [employer] [facility] CPT-4: 18528 05/15/2018 ([id number]) OFFICE/OUTPATIENT VISIT EST Diagnosis: Encounter for therapeutic drug level monitoring[ICD10: Z51.81] Diagnosis: Acute sinusitis, unspecified[ICD10: J01.90] Diagnosis: Other intervertebral disc degeneration, 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] Diagnosis: Essential tremor[ICD10: G25.0] Diagnosis: Raynaud's syndrome without gangrene[ICD10: I73.00] Verna MATHEWS [employer] CPT-4: 20848 04/25/2018 ([id number]) OFFICE/OUTPATIENT VISIT EST Diagnosis: Idiopathic urticaria[ICD10: L50.1] Diagnosis: Other urticaria[ICD10: L50.8] Vonniefabricio COLMENARES Denia MATHEWS [employer] [facility] CPT-4: 91810 11/16/2017 ([id number]) OFFICE/OUTPATIENT VISIT EST Diagnosis: Idiopathic urticaria[ICD10: L50.1] Diagnosis: Other urticaria[ICD10: L50.8] Diagnosis: Other forms of dyspnea[ICD10: R06.09] Vonniefabricio RODGERS Denia [employer] CPT-4: 68569 11/06/2017 ([id number]) OFFICE/OUTPATIENT VISIT EST Diagnosis: Dyspnea, unspecified[ICD10: R06.00] Diagnosis: Abnormal weight loss[ICD10: R63.4] Vonnie LUCIA [employer]. 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] Diagnosis: Essential (primary) hypertension[ICD10: I10] Diagnosis: Supraventricular tachycardia[ICD10: I47.1] Diagnosis: Other fatigue[ICD10: R53.83] Diagnosis: Encounter for screening for malignant neoplasm of prostate[ICD10: Z12.5] Vonnie MATHEWS DO [facility] CPT-4: 49590 02/26/2017 ([id number]) OFFICE/OUTPATIENT VISIT EST Diagnosis: Essential tremor[ICD10: G25.0] Vonnie MATHEWS DO [facility] CPT-4: 46345 02/13/2017 ([id number]) OFFICE/OUTPATIENT VISIT EST Diagnosis: Essential tremor[ICD10: G25.0] Diagnosis: Other intervertebral disc degeneration, 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] Vonnie MATHEWS DO [facility] CPT-4: 96363 11/23/2016 ([id number]) OFFICE/OUTPATIENT VISIT EST Diagnosis: FLU VACCINE[ICD10: Z23] Vonnie GERMAN [facility] CPT-4: 32131 06/28/2016 OFFICE/OUTPATIENT VISIT EST Diagnosis: Open bite of right hand, initial encounter[ICD10: S61.451A] Vonnie MATHEWS DO [facility] CPT-4: 57191 05/23/2016 ([id number]) OFFICE/OUTPATIENT VISIT EST Diagnosis: Encounter for general adult medical examination with abnormal findings[ICD10: Z00.01] Diagnosis: Mixed hyperlipidemia[ICD10: E78.2] Diagnosis: Essential tremor[ICD10: G25.0] 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] Vonnie MATHEWS DO [facility] CPT-4: 78843 05/19/2016 ([id number]) OFFICE/OUTPATIENT VISIT EST Diagnosis: HYPERLIPIDEMIA NEC/NOS[ICD9: 272.4] Diagnosis: CAD[ICD9: 414.00] Diagnosis: TACHYCARDIA[ICD9: 785.0] Diagnosis: HYPERTENSION[ICD9: 401.9] Diagnosis: Routine medical exam[ICD9: V70.0] Vonnie Sebastianraheemranjan LAIBRADYMARSHA MATHEWS DO [facility] CPT-4: 16982 04/05/2015 ([id number]) OFFICE/OUTPATIENT VISIT EST Diagnosis: HYPERTENSION[ICD9: 401.9] Diagnosis: HYPERLIPIDEMIA NEC/NOS[ICD9: 272.4] Diagnosis: CAD[ICD9: 414.00] Diagnosis: LUMB/LUMBOSAC DISC DEGEN[ICD9: 722.52] Vonnie Romuloraheemranjan LAINeri GASPAR Denia MATHEWS [employer] [facility] CPT-4: 59083 04/01/2015 ([id number]) OFFICE/OUTPATIENT VISIT EST Diagnosis: CHEST PAIN NOS[ICD9: 786.50] Diagnosis: PAIN IN THORACIC SPINE[ICD9: 724.1] Diagnosis: HYPERTENSION[ICD9: 401.9] Diagnosis: GERD[ICD9: 530.81] Vonnie MATHEWS DO [facility] CPT-4: 11030 01/13/2014 ([id number]) OFFICE/OUTPATIENT VISIT EST Diagnosis: CAD[ICD9: 414.00] Diagnosis: HYPERLIPIDEMIA NEC/NOS[ICD9: 272.4] Vonnie Romuloiron ANNA Denia MATHEWS [employer] [facility] CPT-4: 72182 07/19/2012 ([id number]) OFFICE/OUTPATIENT VISIT EST Diagnosis: CAD[ICD9: 414.00] Diagnosis: INSOMNIA NOS[ICD9: 780.52] Vonnie Romuloiron COLMENARES GilbertoKim DANAY [facility] CPT-[facility]: 21902 04/03/2012 ([id number]) OFFICE/OUTPATIENT VISIT EST Diagnosis: CHEST PAIN NOS[ICD9: 786.50] Diagnosis: CAD[ICD9: 414.00] Vonnie Sebastianraheemranjan LAIVONNIE GilbertoKim NAMRATA [employer] [facility] CPT-4: 84113 03/22/2012 ([id number]) OFFICE/OUTPATIENT VISIT EST Diagnosis: PROSTATITIS[ICD9: 601.9] Diagnosis: TREMOR NEC[ICD9: 333.1] Vonnie Loza [employer] CPT-4: 30286 12/20/2011 OFFICE/OUTPATIENT VISIT EST Diagnosis: TREMOR NEC[ICD9: 333.1] Diagnosis: TACHYCARDIA[ICD9: 785.0] Diagnosis: HYPERTENSION[ICD9: 401.9] Vonnie SEBASTIAN NDER DO [facility] CPT-4: 78101 10/24/2011 OFFICE/OUTPATIENT VISIT EST Vonnie [facility] CPT- 4: 71928 03/13/2011 ([id number]) OFFICE/OUTPATIENT VISIT EST Vonnie GASPAR SKim [employer] CPT-4: 64826 02/20/2011 ([id number]) OFFICE/OUTPATIENT VISIT, EST Vonnie NELSON SKim [employer] CPT-4: 96368 02/23/2010 ([id number]) OFFICE/OUTPATIENT VISIT, EST Vonnie NELSON SKim ORENDER [employer] CPT-4: 69015 01/12/2010 Plan of Care Planned Activity Notes Codes Status Date Visit Diagnosis Plan: Essential tremor Discussion: Sta ble on clonazepam Fwup in 3mos with fasting lab ICD-9 : 333.1 ICD-10 : G25.0 12/24/2019 Appointment: Vonnie Mathews WPtel: [address] [place], [place] [phone] TELEMEDICINE 12/24/2019 Patient Education: [employer] HFA- [employer]imize[employer] Coupon [id number] [email or web address] Completed 12/24/2019 Appointment: Vonnie Mathews WPtel: [address] [place], [place] [id number] [place] LAB 09/30/2019 Appointment: Verna Ramirez [address] [place] [address] RESCHEDULED 09/25/2019 Visit Diagnosis Plan: Essential tremor Discussion: sta ble on clonazepam. educated patient about purchasing a large, heavy pen that will allow him to improve his writing. instructed him that pens can be purchased on [employer]. ICD-9 : 333.1 ICD-10 : G25.0 09/24/2019 Visit Diagnosis Plan: Encounter for therapeutic drug l evel monitoring Discussion: UDS and contract completed today. ICD-9 : V58.83 ICD-10 : Z51.81 09/24/2019 Appointment: Verna Ramirez [address] [facility] US MEDICATION REVIEW 09/24/2019 Visit Diagnosis Plan: Hemorrhage of anus and rectum Di scussion: Update colonoscopy ICD-9 : 569.3 ICD-10 : K62.5 05/26/2019 Visit Diagnosis Plan: Noninfective gastroenteritis and colitis, unspecified Discussion: Flagyl [place] diet Update colonoscopy ICD-9 : 558.9 ICD-10 : K52.9 05/26/2019 Appointment: Vonnie Mathews WPtel: [phone] [facility] US record request faxed 05/23; LM with medical records 05/26/19 Hospital Follow Up 05/26/2019 Care Plan: Referral Order SNOMED-CT : 30 [id number] Pending 05/26/2019 Visit Diagnosis Plan: Other intervertebral disc degene ration, lumbar region Discussion: Increase lyrica to 150mg po q HS Continue stretches from PT [facility] Fwup after that appointment ICD-9 : 722.52 ICD-10 : M51.36 03/17/2019 Appointment: Vonnie Mathews WPtel: [phone] [facility] US FOLLOW UP 03/17/2019 Visit Diagnosis Plan: Other intervertebral disc degene ration, lumbar region Discussion: Start PT Referral for epidural Will start lyrica 75mg po q HS once CT scan results obtained Hold ambien Follow Up: 3 weeks ICD-9 : 722.52 ICD-10 : M51.36 02/18/2019 Visit Diagnosis Plan: Other symptoms and signs involving the musculoskeletal system Discussion: Check CT of head due to at o nset of this had PEÑALOZA, confusion and right sided numbness Has had vascular workup including arterial dopplers of LEs as well as carotid dopplers ICD-9 : 729.89 ICD-10 : R29.898 02/18/2019 Appointment: Vonnie Mathews WPtel: [address] [place] [address] US FOLLOW UP 02/18/2019 Appointment: Vonnie Mathews WPtel: [address] [place], [place] [phone] US CANCELED 02/18/2019 Visit Diagnosis Plan: Other [...] : J30.89 01/13/2019 Appointment: Akilah Lopez [address] [facility] US Due for annual wellness ACUTE ILLNESS 01/14/20 19 Appointment: Vonnie Mathews WPtel: [address] [place], [place] [phone] US LAB 09/04/2018 Visit Diagnosis Plan: Impacted cerumen, right ear Disc ussion: instructed to purchase OTC debrox and use as directed to soften cerumen. call office if no improvement. ICD-9 : 380.4 ICD-10 : H61.21 09/03/2018 Visit Diagnosis Plan: Otorrhea, left ear Discussion: c ipro drops prescribed for symptom management. instructed to avoid qtips to prevent worsening issues. call with new or worsening symptoms. ICD-9 : 388.60 ICD-10 : H92.12 09/03/2018 Appointment: Verna Ramirez [address] ACUTE ILLNESS 09/03/2018 Visit Diagnosis Plan: Essential tremor Discussion: Inc rease primidone to 100mg q AM and 50mg q HS for rest of month then may increase to 100mg po BID if needed Will return later this week fasting for lab ICD-9 : 333.1 ICD-10 : G25.0 08/26/2018 Visit Diagnosis Plan: Primary insomnia Discussion: Sta ble using ambien prn--no side effects per patient or ICD-9 : 780.52 ICD-10 : F51.01 08/26/2018 Visit Diagnosis Plan: Other intervertebral disc degene ration, lumbar region Discussion: Stable using oxycodone prn Follow Up: 3 months ICD-9 : 722.52 ICD-10 : M51.36 08/26/2018 Appointment: Vonnie Mathews WPtel: [phone] [facility] US FOLLOW UP 08/26/2018 Visit Diagnosis [...] : R10.2 05/15/2018 Appointment: Verna Ramirez [address] [place], [place] [id number] ACUTE ILLNESS 05/15/2018 Patient Education: Patient Medication Summary Completed 05/15/2018 Care Plan: US EXAM PELVIC COMPLETE scrotal LOINC : 07129-1 Pending 05/15/2018 Visit Diagnosis Plan: Other intervertebral [...] ICD-10 : J01.90 04/25/2018 Appointment: Verna Ramirez [address] [place] [address] MEDICATION REVIEW 04/25/2018 Patient Education: Patient Medication Summary Completed 04/25/2018 Appointment: Vonnie Mathews WPtel: [address] [place], [place] [phone] 11/16/2017 Patient Education: Patient Medication Summary [...] : L50.1 11/06/2017 Appointment: Vonnie Mathews WPtel: [phone] [facility] FOLLOW UP 11/06/2017 Patient Education: Patient Medication Summary Completed 11/06/2017 Referral: John Das WPtel: Referral Initiated 10/15/2017 Visit Diagnosis Plan: Abnormal weight loss Discussion: Check TSh, Free T4, TT3 ICD-9 : 783.21 ICD-10 : R63.4 09/03/2017 Visit Diagnosis Plan: Dyspnea, unspecified Discussion: Check PFTs May need CT scan of chest if above normal and with ongoing dyspnea/weight loss ICD-9 : 786.09 ICD-10 : R06.00 09/03/2017 Appointment: Vonnie Mathews WPtel: [address] [place], [place] [phone] FOLLOW UP 09/03/2017 Patient Education: Patient Medication Summary Completed 09/03/2017 Visit Diagnosis Plan: Essential tremor Discussion: Sta ble on Primidone ICD-9 : 333.1 ICD-10 : G25.0 08/21/2017 Visit Diagnosis Plan: Atherosclerotic he art disease of [place] coronary artery without angina pectoris Discussion: Sees Cardiology in 2 days To ER if CP returns before ICD-9 : 414.00 ICD-10 : I25.10 08/21/2017 Visit Diagnosis Plan: Abnormal weight loss Discussion: Start daily protein shake or smoothie ICD-9 : 783.21 ICD-10 : R63.4 08/21/2017 Visit Diagnosis Plan: Essential (primary) hypertension Discussion: Stable ICD-9 : 401.9 ICD-10 : I10 08/21/2017 Visit Diagnosis Plan: Mixed hyperlipidemia Discussion: Lab discussed ICD-9 : 272.4 ICD-10 : E78.2 08/21/2017 Appointment: Vonnie Mathewstel: [address] [place], [place] [phone] FOLLOW UP 08/21/2017 Patient Education: Patient Medication Summary Completed 08/21/2017 Appointment: Vonnie Mathews WPtel: [address] [place], [place] [phone] US LAB 07/31/2017 Patient Education: Patient Medication Summary Completed 07/31/2017 Appointment: Vonnie Mathews WPtel: [address] [place], [place] [phone] US INJECTION 07/04/2017 Patient Education: Patient Medication Summary Completed 07/04/2017 Appointment: Vonnie Mathews WPtel: [address] [place], [place] [phone] US LAB 02/26/2017 Patient Education: Patient Medication Summary Completed 02/26/2017 Visit Diagnosis Plan: Essential tremor Discussion: Con tinue clonazepam at 1mg q AM and primidone 50mg q HS Follow Up: 3 months ICD-9 : 333.1 ICD-10 : G25.0 02/13/2017 Appointment: Vonnie Mathews WPtel: [address] [place] [address] 02/08 confirmed~sl FOLLOW UP 02/13/2017 Patient Education: Patient Medication Summary Completed 02/13/2017 Appointment: Vonnie Mathews WPtel: [address] [place] [address] US RESCHEDULED 01/23/2017 Visit Diagnosis Plan: Other intervertebral disc degene ration, lumbar region Discussion: DC oxycodone Tramadol 50mg 1-2 po TID prn pain Follow Up: 2 months ICD-9 : 722.52 ICD-10 : M51.36 11/23/2016 Visit Diagnosis Plan: Essential tremor Discussion: Inc rease clonazepam to 1mg po BID Discussed sinemet ICD-9 : 333.1 ICD-10 : G25.0 11/23/2016 Appointment: Vonnie Mathews WPtel: [address] [place] [address] 11/22 confirmed~sl MEDICATION REVIEW 11/23/2016 Patient Education: Patient Medication Summary Completed 11/23/2016 Patient Education: [facility] - [employer]aving [employer] - Clonazepam - 18-64 - Dynamic Portal ID Completed 11/23/2016 Appointment: Vonnie Mathews WPtel: [address] [place] [address] US INJECTION 06/28/2016 Patient Education: Patient Medication Summary Completed 06/28/2016 Referral: Fernando Day WPtel: #[address] [facility] Gucci Stout [address] [phone] per Maribeth, the patient is sched uled [...] prn Notify if worsening 05/23/2016 Appointment: Vonnie Mathewstel: [address] [place], [place] [phone] ER Follow UP 05/23/2016 Patient Education: Patient Medication Summary Completed 05/23/2016 Appointment: Vonnie Mathews WPtel: [address] [place], [place] [phone] [place] LAB 05/19/2016 Patient Education: Patient Medication Summary Completed 05/19/2016 Visit Plan: Change coreg to 3.125mg BID Trial of low dose clonazepam 0.5mg BID for tremors Fwup with Dr. Ramsey as scheduled Return for fasting lab--CBC, CMP, TSH, free T4, Lipids, PSA, B12 Proceed with Colonoscopy 05/10/2016 Appointment: Vonnie Mathews WPtel: [address] [place], [place] [phone] [place] 05/09 confirmed~sl Annual Well Visit 05/10/2016 Patient Education: Patient Medication Summary Completed 05/10/2016 Care Plan: Referral Order SNOMED-CT : [id number] Pending 05/10/2016 Appointment: Vonnie Mathews WPtel: [address] [place], [place] [id number] [place] Rescheduled for 05/10/16 at 2PM~lb RESCHEDULED 04/26/2016 Referral: Danilo Ramsey WPtel: [phone] [id number] [place] Referral Initiated 04/29/2015 Appointment: Vonnie Mathews WPtel: [address] [place], [place] [phone] [place] LAB 04/05/2015 Patient Education: Patient Medication Summary Completed 04/05/2015 Visit Plan: Return in AM for fasting lab --CMP, lipids, CBC, TSH, PSA Change hydrocodone to oxycodone 7.5/325mg 1-2 po TID Schedule with cardiology Needs colonoscopy once cardiology evaluation complete Will need to restart chol meds after lab Recheck 1mo on pain meds 04/01/2015 Appointment: Vonnie Mathews WPtel: [address] [place], [place] [phone] [place] 03/31 confirmed -mf PHYSICAL 04/01/2015 Patient Education: Patient Medication Summary Completed 04/01/2015 Appointment: Vonnie Mathews WPtel: [address] [place] [address] Annual Well Visit 09/23/2014 Visit Plan: Continue protonix Pt has fwu p with Card next month Rec chiropracter or PT for ribs/thoracics being out and could be contributing to chest pain 01/13/2014 Appointment: Vonnie Mathews WPtel: [address] [place] [address] FOLLOW UP 01/13/2014 Patient Education: Patient Medication Summary Completed 01/13/2014 Appointment: Ariella Mcnally WPtel: [address] [place] [address] [place] FOLLOW UP 12/12/2013 Appointment: Malika Cárdenas WPtel: [address] [place], [place] [id number] PHYSICAL 12/12/2013 Appointment: Vonnie Mathews WPtel: [address] [place], [place] [phone] ACUTE ILLNESS 02/20/2013 Appointment: Vonnie Mathews WPtel: [address] [place], [place] [phone] [place] LAB 07/19/2012 Patient Education: Patient Medication Summary Completed 07/19/2012 Appointment: Vonnie Mathews WPtel: [address] [place], [place] [phone] [place] FOLLOW UP 04/03/2012 Patient Education: Patient Medication Summary Completed 04/03/2012 Appointment: Vonnie Mathews WPtel: [address] [place], [place] [id number] ACUTE ILLNESS 03/22/2012 Patient Education: Patient Medication Summary Completed 03/22/2012 Appointment: Vonnie Mathews WPtel: [address] [place], [place] [id number] FOLLOW UP 12/26/2011 Visit Plan: Add Cipro Continue current m eds 12/20/2011 Appointment: Vonnie Mathews WPtel: [address] [place], [place] [phone] ACUTE ILLNESS 12/20/2011 Patient Education: Patient Medication Summary Completed 12/20/2011 Visit Plan: Change neurontin to Cymbalta 30mg for 1wk then 60mg QD Add Propranolol for tremor 10/24/2011 Appointment: Vonnie Mathewstel: [address] [place] [address] ACUTE ILLNESS 10/24/2011 Appointment: Vonnie Mathews WPtel: [address] [place] [address] ACUTE ILLNESS 10/24/2011 Patient Education: Patient Medication Summary Completed 10/24/2011 Visit Plan: Continue current meds and fw up with Card as scheduled 03/13/2011 Appointment: Vonnie Mathewstel: [address] [place], [place] [phone] FOLLOW UP 03/13/2011 Patient Education: Patient Medication Summary Completed 03/13/2011 Visit Plan: Will obtain all records and lab from [facility] Discussed will likely need heart cath which pt states that Card did talk to him about in the hospital 02/20/2011 Appointment: Vonnie Mathewstel: [address] [place] [address] ACUTE ILLNESS 02/20/2011 Patient Education: Patient Medication Summary Completed 02/20/2011 Visit Plan: Cont Pepcid and Prilosec See Card for cardiac cath. 02/23/2010 Appointment: Vonnie Mathewsl: [phone] [id number] FOLLOW UP 02/23/2010 Patient Education: Patient Medication Summary Completed 02/23/2010 Visit Plan: Increase Pamelor to 75mg qhs Increase Hydrocodone to 10/325mg 1-2 po q6 prn 01/12/2010 Appointment: Vonnie Mathews WPtel: [address] [place], [place] [phone] ACUTE ILLNESS 01/12/2010 Patient Education: Patient Medication Summary Completed 01/12/2010 Referral: Iván Pardo WPtel: [facility] [address] Referral Initiated Referral: Fernando Day WPtel: #[address] [id number] Referral Completed Referral: Fernando Day WPtel: 1 [id number] Referral Appointment Requested Instructions Comment . Finish [...] obtain all records and lab from [facility] Discussed will likely need heart cath which [...]
--- OUTSIDE RECORDS SUMMARY | 2020-02-10 08:08 | XMS REPORT | CCD ---
Author Author Nash Mathews D.O. Organization [facility] Address [address] [place] [address] Phone Care Team Providers Care Insurance And Benefits Clerk Name Role Phone Vonnie Mathews D.O., PP Unavailable CCM Unavailable Summary Purpose Interface Exchange Insurance Providers Payer name Policy type / Coverage type Covered green party ID Effective Begin Date Effective End Date [employer] MEDICARE Medicare Part B [id number] 2019 Unknown Family History Family History data not found Social History Social History Element Codes Description Effective Dates Marital status Unknown 10/24/[address]: 715359903 Nonsmoker 03/29/2011 Allergies, Adverse Reactions, Alerts Substance [...] R63.4 08/21/2017 Active 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: [...] Start Date Stop Date Status Fill Instructions ProAir HFA 90 mcg/actuation aerosol inhaler RxNorm: 994700 2 Puff(s) Inhalation four times a day as needed 12/25/2019 02/13/2020 Active Pat ient requests 90 days supply metoprolol tartrate 25 mg tablet RxNorm: 127713 09/18 Tab let(s) Oral two times a day 12/25/2019 06/22/2020 Active pravastatin 20 mg tablet RxNorm: 617900 1 Tablet(s) Oral QD 020 06/22/2020 Active Zyrtec 10 mg capsule RxNorm: 2969330 1 Capsule(s) Oral QD 0 No Stop Date Active ProAir HFA 90 mcg/actuation aerosol inhaler RxNorm: 663665 2 Puff(s) Inhalation four times a day as needed 12/24/2019 12/23/2019 Inactive ProAir HFA 90 mcg/actuation aerosol inhaler RxNorm: 267553 INHALE 2 PUFFS BY MOUTH FOUR TIMES DAILY NEEDED 12/24/2019 12/24/2019 Inactive Patient requests 90 days supply clonazepam 1 mg tablet RxNorm: 19741025 TAKE 1 TABLET BY MOUTH EV SUSAN MORNING 12/19/2019 01/17/2020 Active clonazepam 1 mg tablet RxNorm: 19741025 TAKE 1 TABLET BY MOUTH EV SUSAN MORNING 11/17/2019 12/16/2019 Inactive Tamiflu 75 mg capsule RxNorm: 987300 1 Capsule(s) Oral QD 11/03/2019 11/12/2019 Inactive Tamiflu 75 mg capsule RxNorm: 918087 1 Capsule(s) Oral QD 11/03/2019 11/02/2019 Inactive clonazepam 1 mg tablet RxNorm: 248780 TAKE 1 TABLET BY MOUTH EV SUSAN MORNING 10/16/2019 11/13/2019 Inactive pravastatin 20 mg tablet RxNorm: 656979 1 Tablet(s) Oral QD 020 12/24/2019 Inactive Singulair 10 mg tablet RxNorm: 536277 TAKE 1 TABLET BY MOUTH EV SUSAN DAY 10/10/2019 12/24/2019 Inactive Lyrica 75 mg capsule RxNorm: 030054 1 Capsule(s) Oral every nig ht at bedtime 10/09/2019 01/07/2020 Active clonazepam 1 mg tablet RxNorm: 596596 TAKE 1 TABLET BY MOUTH EV SUSAN AM 09/23/2019 10/15/2019 Inactive clonazepam 1 mg tablet RxNorm: 732330 TAKE 1 TABLET BY MOUTH EV SUSAN AM 08/21/2019 09/22/2019 Inactive Singulair 10 mg tablet RxNorm: 685941 TABLET(S) 1 TABLET(S) PO QD 1 10/09/2019 Inactive Flagyl 500 mg tablet RxNorm: 329539 1 Tablet(s) PO TID 05/26/2019 Inactive clonazepam 1 mg tablet RxNorm: 396003 TAKE 1 TABLET BY MOUTH EV SUSAN MORNING 05/23/2019 06/21/2019 Inactive pravastatin 20 mg tablet RxNorm: 610101 1 Tablet(s) PO QD 04/14/2019 10/09/2019 Inactive Needs updated fasting labs Singulair 10 mg tablet RxNorm: 363582 Tablet(s) 1 TABLET(S) PO QD 0 04/14/2019 07/12/2019 Inactive clonazepam 1 mg tablet RxNorm: 105078 1 Tablet(s) PO QAM 02/21/2019 0 05/23/2019 Inactive Bevespi Aerosphere 9 mcg-4.8 mcg HFA aerosol inhaler RxNorm: 8110337 2 Puff(s) INH BID 02/19/2019 12/23/2019 Inactive ProAir HFA 90 mcg/actuation aerosol inhaler RxNorm: 403919 2 Puff(s) INH Q4H as needed 02/19/2019 09/24/2019 Inactive metoprolol tartrate 25 mg tablet RxNorm: 551922 1/2 Tablet(s) PO BI D 02/18/2019 05/18/2019 Inactive pravastatin 20 mg tablet RxNorm: 942642 1 Tablet(s) PO QD Needs updated fasting labs 01/13/2019 04/14/2019 Inactive Needs updated fa sting labs Singulair 10 mg tablet RxNorm: 161489 Tablet(s) 1 TABLET(S) PO QD 0 01/13/2019 04/12/2019 Inactive Plavix 75 mg tablet RxNorm: 658574 Tablet(s) 1 TABLET(S) PO QD 0404/201906/20/2019 Inactive [SAVINGS FOR NON-COVERED [facility] -- BIN:[id number], PCN: ASPROD1, Group: XXXXX, ID# [id number], Questions: . THIS IS NOT INSURANCE.] Singulair 10 mg tablet RxNorm: 851858 1 TABLET(S) PO QD 10/29/2018 Inactive primidone 50 mg tablet RxNorm: 924777 2 TABLET(S) PO BI D TAKE 2 TABLETS BY MOUTH EVERY NIGHT AT BEDTIME 10/07/2018 01/12/2019 Inactive Patient requests 90 days supply pravastatin 20 mg tablet RxNorm: 612611 1 TABLET(S) PO QD 09/23/2018 01/12/2019 Inactive clonazepam 1 mg tablet RxNorm: 817617 1 Tablet(s) PO QAM 09/19/2018 0 12/17/2018 Inactive primidone 50 mg tablet RxNorm: 140392 TABLET(S) TAKE 2 TABLETS BY MOUTH EVERY NIGHT AT BEDTIME 09/18/2018 01/12/2019 Inactive ciprofloxacin 0.2 % ear drops in a dropperette RxNorm: 40230 6 2 Drop(s) left otic (ear) BID 09/03/2018 09/09/2018 Inactive primidone 50 mg tablet RxNorm: 881594 2 Tablet(s) PO BI D TAKE 2 TABLETS BY MOUTH EVERY NIGHT AT BEDTIME 08/26/2018 10/06/2018 Inactive Ambien 5 mg tablet RxNorm: 689137 TAKE 1 TABLET BY MOUTH EVERY NIGHT AT BEDTIME 08/05/2018 09/03/2018 Inactive Singulair 10 mg tablet RxNorm: 022276 1 TABLET(S) PO QD 07/23/2018 Inactive clonazepam 1 mg tablet RxNorm: 326468 TAKE 1 TABLET BY MOUTH EV SUSAN MORNING 07/23/2018 08/21/2018 Inactive Plavix 75 mg tablet RxNorm: 843360 1 TABLET(S) PO QD 07/04/201812/22 Inactive [SAVINGS FOR NON-COVERED DRUGS -- BIN:00 3585, PCN: ASPROD1, Group: XXXXX, ID# [id number], Questions: . THIS IS NOT INSURANCE.] clonazepam 1 mg tablet RxNorm: 932867 TAKE 1 TABLET BY MOUTH EV SUSAN MORNING 06/25/2018 07/23/2018 Inactive clonazepam 1 mg tablet RxNorm: 190001 TAKE 1 TABLET BY MOUTH EV SUSAN MORNING 05/23/2018 06/21/2018 Inactive primidone 50 mg tablet RxNorm: 234505 Tablet(s) TAKE 2 TABLETS BY MOUTH EVERY NIGHT AT BEDTIME 05/16/2018 08/25/2018 Inactive oxycodone-acetaminophen 7.5 mg-325 mg tablet RxNorm: 7479540 1-2 Tablet(s) PO TID as needed 04/25/2018 05/24/2018 Inactive Singulair 10 mg tablet RxNorm: 787180 1 Tablet(s) PO QD 04/25/2018 Inactive Medrol (Jose) 4 mg tablets in a dose pack RxNorm: 504615 Tablet(s) PO take as directed 04/25/2018 09/02/2018 Inactive clonazepam 1 mg tablet RxNorm: 579420 TAKE 1 TABLET BY MOUTH EV SUSAN MORNING 04/24/2018 05/22/2018 Inactive Plavix 75 mg tablet RxNorm: 232774 1 TABLET(S) PO QD 04/04/201807/02 Inactive [SAVINGS FOR NON-COVERED DRUGS -- BIN:00 3585, PCN: ASPROD1, Group: XXXXX, ID# [id number], Questions: . THIS IS NOT INSURANCE.] pravastatin 20 mg tablet RxNorm: 731318 1 Tablet(s) PO QD 03/21/2018 09/16/2018 Inactive ProAir HFA 90 mcg/actuation aerosol inhaler RxNorm: 322884 2 Puff(s) INH Q4H as needed 03/18/2018 03/17/2018 Inactive tamsulosin 0.4 mg capsule RxNorm: 547404 1 CAPSULE(S) PO QD 018 01/12/2019 Inactive clonazepam 1 mg tablet RxNorm: 498997 1 Tablet(s) PO QAM 02/25/2018 0 04/25/2018 Inactive tamsulosin 0.4 mg capsule RxNorm: 014259 1 Capsule(s) PO QD 018 03/13/2018 Inactive tamsulosin 0.4 mg capsule RxNorm: 700962 1 Capsule(s) PO QD 018 02/03/2018 Inactive tamsulosin 0.4 mg capsule RxNorm: 815191 1 Capsule(s) PO QD 018 02/12/2018 Inactive Ambien 5 mg tablet RxNorm: 239344 Tablet(s) TAKE 1 TAB LET BY MOUTH EVERY NIGHT AT BEDTIME 01/24/2018 08/05/2018 Inactive primidone 50 mg tablet RxNorm: 698867 Tablet(s) TAKE 2 TABLETS BY MOUTH EVERY NIGHT AT BEDTIME 01/18/2018 05/16/2018 Inactive cyclobenzaprine 10 mg tablet RxNorm: 889760 1 Tablet(s) PO TID as needed for muscle spasm 01/11/2018 02/09/2018 Inactive [SAVINGS FOR NON -COVERED DRUGS -- BIN:452512, PCN: ASPROD1, Group: XXXXX, ID# [id number], Questions: . THIS IS NOT INSURANCE.] clonazepam 1 mg tablet RxNorm: 947391 1 Tablet(s) PO QAM 12/24/2017 0 02/21/2018 Inactive prednisone 20 mg tablet RxNorm: 092454 1 Tablet(s) PO QD 11/06/2017 0 11/10/2017 Inactive EpiPen 2-Jose 0.3 mg/0.3 mL injection, auto-injector RxNorm: 922046 1 Unit Dose IM as needed 11/06/2017 09/24/2019 Inactive ProAir HFA 90 mcg/actuation aerosol inhaler RxNorm: 138453 2 Puff(s) INH Q4H as needed 10/30/2017 03/17/2018 Inactive primidone 50 mg tablet RxNorm: 744126 TAKE 2 TABLETS BY MOUTH EVERY NIGHT AT BEDTIME 10/15/2017 01/17/2018 Inactive Plavix 75 mg tablet RxNorm: 900927 1 Tablet(s) PO QD 10/01/201703/29 Inactive [SAVINGS FOR NON-COVERED DRUGS -- BIN:00 3585, PCN: ASPROD1, Group: XXXXX, ID# [id number], Questions: . THIS IS NOT INSURANCE.] clonazepam 1 mg tablet RxNorm: 748468 1 Tablet(s) PO QAM 09/19/2017 0 12/16/2017 Inactive primidone 50 mg tablet RxNorm: 755302 2 Tablet(s) PO QHS 08/29/2017 0 01/18/2018 Inactive oxycodone-acetaminophen 7.5 mg-325 mg tablet RxNorm: 4715382 1-2 Tablet(s) PO TID as needed 08/22/2017 09/19/2017 Inactive pravastatin 20 mg tablet RxNorm: 927355 1 Tablet(s) PO QD 08/21/2017 03/21/2018 Inactive carvedilol 3.125 mg tablet RxNorm: 657656 1 Tablet(s) P O BID to replace 6.25mg dose 08/21/2017 09/02/2017 Inactive primidone 50 mg tablet RxNorm: 908930 TAKE 2 TABLETS BY MOUTH EVERY NIGHT AT BEDTIME 06/18/2017 08/28/2017 Inactive clonazepam 1 mg tablet RxNorm: 025780 1 Tablet(s) PO QAM 06/04/2017 1 11/02/2016 Inactive Plavix 75 mg tablet RxNorm: 347222 1 Tablet(s) PO QD 04/10/201710/01 Inactive [SAVINGS FOR NON-COVERED DRUGS -- BIN:00 3585, PCN: ASPROD1, Group: XXXXX, ID# [id number], Questions: . THIS IS NOT INSURANCE.] pravastatin 20 mg tablet RxNorm: 497098 1 Tablet(s) PO QD 02/26/2017 08/24/2017 Inactive carvedilol 3.125 mg tablet RxNorm: 566921 1 Tablet(s) P O BID to replace 6.25mg dose 02/26/2017 08/21/2017 Inactive Ultram 50 mg tablet RxNorm: 935865 TAKE 1 TO 2 TABLETS BY MOUTH THREE TIMES DAILY NEEDED FOR PAIN 02/26/2017 03/07/2017 Inactive pravastatin 20 mg tablet RxNorm: 933463 1 Tablet(s) PO QD 02/26/2017 08/21/2017 Inactive carvedilol 3.125 mg tablet RxNorm: 213641 1 Tablet(s) P O BID to replace 6.25mg dose 02/26/2017 08/20/2017 Inactive clonazepam 0.5 mg tablet RxNorm: 997550 1 Tablet(s) PO QAM 02/14/20 17 02/13/2017 Inactive primidone 50 mg tablet RxNorm: 213178 1 Tablet(s) PO QHS 02/13/2017 0 05/01/2017 Inactive clonazepam 1 mg tablet RxNorm: 958843 1 Tablet(s) PO QAM 02/13/2017 0 05/13/2017 Inactive primidone 50 mg tablet RxNorm: 460490 1/2 Tablet(s) PO QD for 7 days then increase to 1 tablet at bedtime 01/09/2017 02/12/2017 Inactive pravastatin 20 mg tablet RxNorm: 057887 Tablet(s) 1 TABLET(S) PO QD 11/29/2016 02/25/2017 Inactive clonazepam 1 mg tablet RxNorm: 860254 1 Tablet(s) PO BID replac es 0.5mg dose 11/23/2016 01/08/2017 Inactive pravastatin 20 mg tablet RxNorm: 402521 1 TABLET(S) PO QD 11/17/2016 11/28/2016 Inactive Ambien 5 mg tablet RxNorm: 997748 TAKE 1 TABLET BY MOUTH EVERY NIGHT AT BEDTIME 11/17/2016 12/14/2016 Inactive clonazepam 0.5 mg tablet RxNorm: 318362 TAKE 1 TABLET BY MOUTH TWICE DAILY 11/17/2016 11/22/2016 Inactive Plavix 75 mg tablet RxNorm: 145221 1 Tablet(s) PO QD 11/06/201604/09 Inactive [SAVINGS FOR NON-COVERED DRUGS -- BIN: 3585, PCN: ASPROD1, Group: XXXXX, ID# [id number], Questions: . THIS IS NOT INSURANCE.] Plavix 75 mg tablet RxNorm: 911580 1 Tablet(s) PO QD 08/28/201611/05 Inactive [SAVINGS FOR NON-COVERED DRUGS -- BIN: 3585, PCN: ASPROD1, Group: XXXXX, ID# [id number], Questions: . THIS IS NOT INSURANCE.] Lidoderm 5 % topical patch RxNorm: 3334614 Application T OP 2 patches for 12hrs then off for 12hrs 08/28/2016 08/27/2016 Inactive clonazepam 0.5 mg tablet RxNorm: 174025 1 Tablet(s) PO BID 08/07/20 16 11/22/2016 Inactive pravastatin 20 mg tablet RxNorm: 754504 1 Tablet(s) PO QD 08/07/2016 11/04/2016 Inactive cyclobenzaprine 10 mg tablet RxNorm: 494636 1 Tablet(s) PO TID as needed for muscle spasm 08/07/2016 09/05/2016 Inactive [SAVINGS FOR NON -COVERED DRUGS -- BIN:344847, PCN: ASPROD1, Group: XXXXX, ID# [id number], Questions: . THIS IS NOT INSURANCE.] Plavix 75 mg tablet RxNorm: 152225 1 Tablet(s) PO QD 08/07/201608/27 Inactive [SAVINGS FOR NON-COVERED DRUGS -- BIN:00 3585, PCN: ASPROD1, Group: XXXXX, ID# [id number], Questions: . THIS IS NOT INSURANCE.] carvedilol 3.125 mg tablet RxNorm: 662040 1 Tablet(s) P O BID to replace 6.25mg dose 08/07/2016 02/02/2017 Inactive clonazepam 0.5 mg tablet RxNorm: 054344 1 Tablet(s) PO BID 07/04/20 16 08/07/2016 Inactive Plavix 75 mg tablet RxNorm: 048798 1 TABLET(S) PO QD 06/20/201608/06 Inactive [SAVINGS FOR NON-COVERED DRUGS -- BIN:00 3585, PCN: ASPROD1, Group: XXXXX, ID# [id number], Questions: . THIS IS NOT INSURANCE.] clonazepam 0.5 mg tablet RxNorm: 410946 1 Tablet(s) PO BID 06/09/20 16 07/03/2016 Inactive pravastatin 20 mg tablet RxNorm: 374724 1 Tablet(s) PO QD 05/23/2016 08/06/2016 Inactive pravastatin 20 mg tablet RxNorm: 949856 1 Tablet(s) PO QD 05/23/2016 05/22/2016 Inactive carvedilol 3.125 mg tablet RxNorm: 262250 1 Tablet(s) P O BID to replace 6.25mg dose 05/10/2016 08/06/2016 Inactive carvedilol 3.125 mg tablet RxNorm: 800266 1 Tablet(s) P O BID to replace 6.25mg dose 05/10/2016 05/09/2016 Inactive clonazepam 0.5 mg tablet RxNorm: 285051 1 Tablet(s) PO BID 05/10/20 16 06/08/2016 Inactive carvedilol 6.25 mg tablet RxNorm: 961674 1 Tablet(s) PO QD 05/10/20 16 05/10/2016 Inactive simvastatin 40 mg tablet RxNorm: 420582 1 TABLET(S) PO QD 04/10/2016 05/09/2016 Inactive Medrol (Jose) 4 mg tablets in a dose pack RxNorm: 284393 Tablet(s) PO As Directed 01/13/2016 05/09/2016 Inactive cyclobenzaprine 10 mg tablet RxNorm: 776219 1 TABLET(S) PO TID NEEDED FOR SPASM 01/11/2016 03/10/2016 Inactive [SAVINGS FOR NON -COVERED DRUGS -- BIN:332675, PCN: ASPROD1, Group: XXXXX, ID# [id number], Questions: . THIS IS NOT INSURANCE.] Plavix 75 mg tablet RxNorm: 706384 1 Tablet(s) PO QD 12/30/201506/19 Inactive [SAVINGS FOR NON-COVERED DRUGS -- BIN: 3585, PCN: ASPROD1, Group: XXXXX, ID# [id number], Questions: . THIS IS NOT INSURANCE.] Ambien 5 mg tablet RxNorm: 970075 TAKE 1 TABLET BY MOUTH EVERY DAY AT BEDTIME 11/15/2015 11/17/2016 Inactive simvastatin 40 mg tablet RxNorm: 529365 1 Tablet(s) PO QD 10/11/2015 01/12/2019 Inactive simvastatin 40 mg tablet RxNorm: 726201 1 Tablet(s) PO QD 10/08/2015 10/10/2015 Inactive Ambien 5 mg tablet RxNorm: 504666 TAKE 1 TABLET BY MOUTH EVERY NIGHT AT BEDTIME 07/27/2015 11/15/2015 Inactive Plavix 75 mg tablet RxNorm: 005050 1 Tablet(s) PO QD 06/28/201512/29 Inactive [SAVINGS FOR NON-COVERED DRUGS -- BIN: 3585, PCN: ASPROD1, Group: XXXXX, ID# [id number], Questions: . THIS IS NOT INSURANCE.] Coreg 6.25 mg tablet RxNorm: 388911 1 TABLET(S) PO BID 04/19/2015 Inactive [SAVINGS FOR NON-COVERED DRUGS -- BIN:00 3585, PCN: ASPROD1, Group: XXXXX, ID# XXXXXXX, Questions: . THIS IS NOT INSURANCE.] simvastatin 40 mg tablet RxNorm: 106490 1 Tablet(s) PO QD 04/05/2015 04/04/2015 Inactive simvastatin 40 mg tablet RxNorm: 035756 1 Tablet(s) PO QD 04/05/2015 10/11/2015 Inactive Plavix 75 mg tablet RxNorm: 127345 1 TABLET(S) PO QD 03/22/201504/20 Inactive [SAVINGS FOR NON-COVERED DRUGS -- BIN:00 3585, PCN: ASPROD1, Group: XXXXX, ID# [id number], Questions: . THIS IS NOT INSURANCE.] Plavix 75 mg tablet RxNorm: 372315 1 Tablet(s) PO QD 03/22/201506/28 Inactive [SAVINGS FOR NON-COVERED DRUGS -- BIN:00 3585, PCN: ASPROD1, Group: XXXXX, ID# XXXXXXX, Questions: . THIS IS NOT INSURANCE.] Ambien 5 mg tablet RxNorm: 257059 1 Tablet(s) PO QHS 12/17/201407/28 Inactive [SAVINGS FOR NON-COVERED DRUGS -- BIN:00 3585, PCN: ASPROD1, Group: XXXXX, ID# XXXXXXX, Questions: . THIS IS NOT INSURANCE.] Coreg 6.25 mg tablet RxNorm: 382385 1 Tablet(s) PO BID 12/17/2014 Inactive [SAVINGS FOR NON-COVERED DRUGS -- BIN:00 3585, PCN: ASPROD1, Group: XXXXX, ID# XXXXXXX, Questions: . THIS IS NOT INSURANCE.] Plavix 75 mg tablet RxNorm: 691457 1 Tablet(s) PO QD 12/17/201403/16 Inactive [SAVINGS FOR NON-COVERED DRUGS -- BIN:00 3585, PCN: ASPROD1, Group: XXXXX, ID# XXXXXXX, Questions: . THIS IS NOT INSURANCE.] cyclobenzaprine 10 mg tablet RxNorm: 605461 1 Tablet(s) PO TID as needed for spasm 12/17/2014 03/16/2015 Inactive [SAVINGS FOR NON -COVERED DRUGS -- BIN:787740, PCN: ASPROD1, Group: XXXXX, ID# XXXXXXX, Questions: . THIS IS NOT INSURANCE.] Coreg 6.25 mg tablet RxNorm: 158454 1 Tablet(s) PO BID 10/21/201409/2014 Inactive [SAVINGS FOR NON-COVERED DRUGS -- BIN:00 3585, PCN: ASPROD1, Group: XXXXX, ID# XXXXXXX, Questions: . THIS IS NOT INSURANCE.] Plavix 75 mg tablet RxNorm: 724716 1 Tablet(s) PO QD 10/21/201412/16 Inactive [SAVINGS FOR NON-COVERED DRUGS -- BIN:00 3585, PCN: ASPROD1, Group: XXXXX, ID# XXXXXXX, Questions: . THIS IS NOT INSURANCE.] Plavix 75 mg tablet RxNorm: 934925 1 Tablet(s) PO QD Ne eds routine check up--last seen March 2012 09/21/2014 10/20/2014 Inactive [SAVINGS FOR UNINSURED PATIENTS -- BIN:435807, PCN: ASPROD1, Group: AME08, ID# [id number], Process claim through [employer], for questions: . THIS IS NOT INSURANCE.] Ambien 5 mg tablet RxNorm: 495362 1 Tablet(s) PO Q 09/21/201412/16 Inactive [SAVINGS FOR UNINSURED PATIENTS -- BIN:0 28115, PCN: ASPROD1, Group: AME08, ID# [id number], Process claim through [employer], for questions: . THIS IS NOT INSURANCE.] Coreg 6.25 mg tablet RxNorm: 284954 1 Tablet(s) PO BID 09/21/201411/2014 Inactive [SAVINGS FOR UNINSURED PATIENTS -- BIN:0 93256, PCN: ASPROD1, Group: AME08, ID# [id number], Process claim through [employer], for questions: . THIS IS NOT INSURANCE.] Plavix 75 mg tablet RxNorm: 961102 1 Tablet(s) PO QD Ne eds routine check up--last seen March 2012 08/04/2014 09/02/2014 Inactive [SAVINGS FOR UNINSURED PATIENTS -- BIN:438740, PCN: ASPROD1, Group: AME08, ID# [id number], Process claim through [employer], for questions: . THIS IS NOT INSURANCE.] Plavix 75 mg tablet RxNorm: 321784 1 Tablet(s) PO QD Ne eds routine check up--last seen March 2012 08/03/2014 08/03/2014 Inactive Protonix 40 mg tablet,delayed release RxNorm: 105000 1 Tablet(s ) PO QD 06/08/2014 02/17/2019 Inactive [SAVINGS FOR UNINSUR ED PATIENTS -- BIN:383310, PCN: ASPROD1, Group: AME08, ID# [id number], Process claim through [employer]ik[employer], for questions: . THIS IS NOT INSURANCE.] hydrocodone 10 mg-acetaminophen 325 mg tablet RxNorm: 488569 1 Tablet(s) PO BID as needed for pain 02/18/2014 03/31/2015 Inactive Coreg 6.25 mg tablet RxNorm: 444467 1 Tablet(s) PO BID 02/02/2014 Inactive Protonix 40 mg granules delayed-release packet RxNorm: 518974 1 Tablet(s) PO QD 01/13/2014 06/08/2014 Inactive Plavix 75 mg tablet RxNorm: 465513 1 Tablet(s) PO QD Ne eds routine check up--last seen March 2012 01/13/2014 08/02/2014 Inactive Plavix 75 mg tablet RxNorm: 257545 1 Tablet(s) PO QD Ne eds routine check up--last seen March 2012 12/09/2013 01/07/2014 Inactive Coreg 6.25 mg tablet RxNorm: 356820 1 Tablet(s) PO BID 12/09/2013 Inactive Cymbalta 60 mg capsule,delayed release RxNorm: 748086 1 Capsule (s) PO QD 10/31/2013 01/12/2014 Inactive Coreg 6.25 mg tablet RxNorm: 949344 1 Tablet(s) PO BID 10/31/2013 Inactive Plavix 75 mg tablet RxNorm: 152193 1 Tablet(s) PO QD Ne eds routine check up--last seen March 2012 10/31/2013 11/29/2013 Inactive Coreg 6.25 mg tablet RxNorm: 985749 1 Tablet(s) PO BID 10/31/2013 Inactive atorvastatin 40 mg tablet RxNorm: 496308 1 Tablet(s) PO QD 10/31/19 14 03/31/2015 Inactive Plavix 75 mg tablet RxNorm: 089650 1 Tablet(s) PO QD Ne eds routine check up--last seen March 2012 09/23/2013 10/30/2013 Inactive cyclobenzaprine 10 mg tablet RxNorm: 038320 1 Tablet(s) PO TID as needed for spasm 09/23/2013 No Stop Date Active cyclobenzaprine 10 mg tablet RxNorm: 354662 1 Tablet(s) PO TID as needed for spasm 07/04/2013 09/22/2013 Inactive atorvastatin 40 mg tablet RxNorm: 596559 1 Tablet(s) PO QD 06/23/20 13 10/30/2013 Inactive atorvastatin 40 mg tablet RxNorm: 026798 1 Tablet(s) PO QD 04/22/20 13 06/22/2013 Inactive Nucynta 50 mg tablet RxNorm: 054035 1-2 Tablet(s) PO Q6H as nee ded for pain 01/01/2013 01/12/2014 Inactive Ambien 5 mg tablet RxNorm: 438368 1 Tablet(s) PO QHS 10/16/201201/13 Inactive Plavix 75 mg tablet RxNorm: 647001 1 Tablet(s) PO QD 09/19/201209/13 Inactive Protonix 40 mg tablet,delayed release RxNorm: 950560 1 Tablet(s ) PO QD 09/19/2012 09/18/2012 Inactive simvastatin 40 mg tablet RxNorm: 636646 1 Tablet(s) PO QD 09/19/2012 02/23/2013 Inactive Protonix 40 mg tablet,delayed release RxNorm: 004346 1 Tablet(s ) PO QD 09/19/2012 09/13/2013 Inactive Ultram 50 mg tablet RxNorm: 104871 1-2 Tablet(s) PO QID as need ed for pain 09/19/2012 02/26/2017 Inactive propranolol 80 mg tablet RxNorm: 682731 1 Tablet(s) PO QHS 09/19/19 13 09/18/2012 Inactive Cymbalta 60 mg capsule,delayed release RxNorm: 435214 1 Capsule (s) PO QD 09/19/2012 09/18/2012 Inactive Cymbalta 60 mg capsule,delayed release RxNorm: 175242 1 Capsule (s) PO QD 09/19/2012 03/17/2013 Inactive propranolol 80 mg tablet RxNorm: 514954 1 Tablet(s) PO QHS 09/19/19 13 02/23/2013 Inactive hydrocodone-acetaminophen 10 mg-325 mg tablet RxNorm: 899530 2 1-2 Tablet(s) PO QID 07/25/2012 02/23/2013 Inactive Ambien 10 mg tablet RxNorm: 456687 1 Tablet(s) PO QHS as needed for sleep 07/10/2012 01/27/2013 Inactive propranolol 80 mg tablet RxNorm: 402052 1 Tablet(s) PO QHS 05/13/20 12 09/18/2012 Inactive hydrocodone-acetaminophen 10 mg-325 mg tablet RxNorm: 058530 2 1-2 Tablet(s) PO QID 05/02/2012 No Stop Date Active Restoril 15 mg Cap RxNorm: 438493 1-2 Capsule(s) PO QHS 05/02/2012 Inactive propranolol 80 mg tablet RxNorm: 657851 1 Tablet(s) PO QHS 05/02/20 12 05/12/2012 Inactive Chantix Starting Month Box 0.5 mg (11)-1 mg (42) Tabs in a Dose Pack RxNorm: 333128 Tablet(s) PO As Directed 04/01/2012 01/27/2013 Inactive simvastatin 40 mg tablet RxNorm: 601055 1 Tablet(s) PO QD 03/28/2012 09/18/2012 Inactive simvastatin 40 mg Tab RxNorm: 196557 1 Tablet(s) PO QD 03/22/201207/2012 Inactive Effient 10 mg Tab RxNorm: 163572 1 Tablet(s) PO QD 03/22/2012 012 Inactive Prilosec 40 mg Capsule, delayed release RxNorm: 474254 1 Capsul e(s) PO QD 03/22/2012 09/18/2012 Inactive Prilosec 40 mg Capsule, delayed release RxNorm: 877340 1 Capsul e(s) PO QD 03/19/2012 03/21/2012 Inactive Cymbalta 60 mg capsule,delayed release RxNorm: 246424 1 Capsule (s) PO QD 03/04/2012 08/30/2012 Inactive hydrocodone-acetaminophen 10 mg-325 mg Tab RxNorm: 0842616 1-2 T ablet(s) PO QID 01/23/2012 No Stop Date Active Cymbalta 60 mg Capsule, delayed release RxNorm: 039329 1 Capsul e(s) PO QD 01/23/2012 03/03/2012 Inactive Cipro 500 mg Tab RxNorm: 061584 1 Tablet(s) PO BID 12/20/2011 012 Inactive Cymbalta 60 mg Capsule, delayed release RxNorm: 510627 1 Capsul e(s) PO QD 12/13/2011 01/22/2012 Inactive nortriptyline 75 mg Cap RxNorm: 556990 1 Capsule(s) PO QHS 11/29/1904/02/2012 Inactive Cymbalta 60 mg Cap RxNorm: 198651 1 Capsule(s) PO QD 10/24/201112/11 Inactive propranolol 80 mg Tab RxNorm: 459479 1 Tablet(s) PO QHS 10/24/2011 Inactive hydrocodone-acetaminophen 10 mg-325 mg Tab RxNorm: 0656778 1-2 T ablet(s) PO QID 09/29/2011 No Stop Date Active hydrocodone-acetaminophen 10 mg-325 mg Tab RxNorm: 6158074 1-2 T ablet(s) PO QID 07/25/2011 No Stop Date Active hydrocodone-acetaminophen 10 mg-325 mg Tab RxNorm: 9283991 1-2 T ablet(s) PO QID 02/14/2011 No Stop Date Active Prilosec 40 mg Cap RxNorm: 082812 1 Capsule(s) PO 01/03/2011 01/13/20 19 Inactive nortriptyline 75 mg Cap RxNorm: 803307 1 Capsule(s) PO QHS 01/04/20 11 07/01/2011 Inactive Neurontin 600 mg Tab RxNorm: 775060 1 Tablet(s) PO QHS 12/08/201011/2011 Inactive hydrocodone-acetaminophen 5 mg-500 mg Tab RxNorm: 241581 2 Tablet(s) PO Q4-6H prn 10/20/2010 01/08/2011 Inactive Diltzac ER 240 mg Cap RxNorm: 651228 1 Capsule(s) PO QD 07/14/2010 Inactive Nortriptyline 75 mg Cap RxNorm: 939828 1 Capsule(s) PO QHS 05/09/20 10 01/12/2019 Inactive Neurontin 600 mg Tab RxNorm: 625712 1 Tablet(s) PO QD 03/17/201012/17 Inactive Nortriptyline 75 mg Cap RxNorm: 557405 1 Capsule(s) PO 01/12/2010 Inactive Nortriptyline 50 mg Cap RxNorm: 518926 1 Capsule(s) PO QHS 01/13/20 10 01/11/2010 Inactive Diltzac ER 240 mg Cap RxNorm: 991788 1 Capsule(s) PO QD 12/06/2009 Inactive aspirin 81 mg Tab RxNorm: 409366 1 Tablet(s) PO QD No Start Date Active Vitamin D3 2,000 unit tablet RxNorm: 829948 1 Tablet(s) PO QD No Star t Date Active aqpurlgvh-cmbgzznfj-kseitp complex no.233 oral RxNorm: oral No Start Date Active primidone 50 mg tablet RxNorm: 547309 2 Tablet(s) PO BID No Start Date Active Prilosec 40 mg Capsule, delayed release RxNorm: 396142 1 Capsul e(s) PO QD No Start Date 03/18/2012 Inactive Prilosec 20 mg Cap RxNorm: 563716 1 Capsule(s) PO QHS No Start Date 0 01/02/2011 Inactive primidone 50 mg tablet RxNorm: 559640 1/2 Tablet(s) PO QHS for 1week then go full tab if needed No Start Date 05/01/2017 Inactive ProAir HFA 90 mcg/actuation aerosol inhaler RxNorm: 814456 2 Puff(s) INH Q4H as needed No Start Date 10/29/2017 Inactive clonazepam 0.5 mg tablet RxNorm: 689443 1/2 Tablet(s) PO BID No Sta rt Date 02/12/2017 Inactive Pepcid AC 10 mg Tab RxNorm: 372951 1 Tablet(s) PO QAM No Start Date 0 02/19/2011 Inactive Coreg Oral RxNorm: Oral No Start Date 01/12/2014 Inactive primidone 50 mg tablet RxNorm: 506507 1/2 Tablet(s) PO QD for 7 days then increase to 1 tablet at bedtime No Start Date 01/08/2017 Inactive Medrol (Jose) 4 mg tablets in a dose pack RxNorm: 130581 Tablet(s) PO As Directed No Start Date 01/12/2016 Inactive Plavix 75 mg tablet RxNorm: 615940 1 Tablet(s) PO QD No Start Date Inactive cyclobenzaprine 10 mg tablet RxNorm: 592390 1 Tablet(s) PO TID as needed for spasm No Start Date 07/03/2013 Inactive Bevespi Aerosphere 9 mcg-4.8 mcg HFA aerosol inhaler RxNorm: 5746297 2 Puff(s) INH BID No Start Date 02/18/2019 Inactive tramadol 50 mg tablet RxNorm: 662224 1-2 Tablet(s) PO TID as ne eded for pain No Start Date 01/12/2019 Inactive clonazepam 1 mg tablet RxNorm: 112079 1 Tablet(s) PO QAM No Start D ate 09/18/2018 Inactive hydrocodone-acetaminophen 5 mg-500 mg Tab RxNorm: 207523 2 Tablet(s) PO Q4-6H prn No Start Date 10/19/2010 Inactive lisinopril 20 mg Tab RxNorm: 173637 1/2 Tablet(s) PO QD No Start Da te 03/12/2011 Inactive Lyrica 75 mg capsule RxNorm: 792232 1 Capsule(s) PO QHS No Start Da te 10/08/2019 Inactive Protonix 40 mg tablet,delayed release RxNorm: 566224 1 Tablet(s ) PO QD No Start Date 06/07/2014 Inactive Lipitor Oral RxNorm: Oral No Start Date 01/12/2014 Inactive primidone 50 mg tablet RxNorm: 327297 2 Tablet(s) PO QAM and 1 tablet at HS No Start Date 02/17/2019 Inactive hydrocodone-acetaminophen 10 mg-325 mg Tab RxNorm: 1650937 1-2 T ablet(s) PO QID No Start Date 02/13/2011 Inactive Ultram 50 mg tablet RxNorm: 612713 1-2 Tablet(s) PO QID as need ed for pain No Start Date 09/18/2012 Inactive Effient 10 mg Tab RxNorm: 624312 1 Tablet(s) PO QD No Start Date 01/2012 Inactive Bevespi Aerosphere 9 mcg-4.8 mcg HFA aerosol inhaler RxNorm: 1137749 2 Puff(s) INH BID No Start Date 10/29/2017 Inactive Neurontin Oral RxNorm: Oral No Start Date 01/12/2010 Inactive primidone 50 mg tablet RxNorm: 330779 1 Tablet(s) PO QD No Start Da te 01/12/2019 Inactive Chantix Starting Month Box 0.5 mg (11)-1 mg (42) Tabs in a Dose Pack RxNorm: 416718 Tablet(s) PO No Start Date 03/31/2012 Inactive atenolol 25 mg Tab RxNorm: 130815 1 Tablet(s) PO QD No Start Date 02/2012 Inactive Neurontin 600 mg Tab RxNorm: 723669 1 Tablet(s) PO QD No Start Date 0 03/16/2010 Inactive Nucynta 50 mg tablet RxNorm: 214424 1-2 Tablet(s) PO Q6H as nee ded for pain No Start Date 12/31/2012 Inactive simvastatin 40 mg Tab RxNorm: 492656 1 Tablet(s) PO QD No Start Date 03/21/2012 Inactive Medication Administered No Medication Administered data Immunizations Vaccine Codes Date Status Influenza CVX: 135 07/04/2017 Complete Results Observation Observation Code Item Item Code Result Date S ervice Location COMPLETE BLOOD COUNT [id number] WBC 4.9 10e9/L 09/30/19 20 Unknown COMPLETE BLOOD COUNT [id number] RBC 4.65 10e12/L 2019 Unknown COMPLETE BLOOD COUNT [id number] HEMOGLOBIN 13.8 g/dL 09/30/19 20 Unknown COMPLETE BLOOD COUNT [id number] HEMATOCRIT 42.3 % 09/30/19 20 Unknown COMPLETE BLOOD COUNT [id number] MCV 91.0 fL 0 Unknown COMPLETE BLOOD COUNT [id number] MCH 29.7 pg 0 Unknown COMPLETE BLOOD COUNT [id number] MCHC 32.6 g/dL 0 Unknown COMPLETE BLOOD COUNT [id number] PLATELET COUNT 230 10e9/L Unknown COMPLETE BLOOD COUNT [id number] Mean Plt Volume 9.9 fL Unknown COMPLETE BLOOD COUNT 1647815 Neut Auto 52.5 % 0 Unknown COMPLETE BLOOD COUNT [id number] Lymph Auto 30.8 % 09/30/19 20 Unknown COMPLETE BLOOD COUNT [id number] [place] Auto 11.2 % 0 Unknown COMPLETE BLOOD COUNT 1376887 RDW 13.5 % 0 Unknown COMPLETE BLOOD COUNT 2175325 Eos Auto 5.1 % 0 Unknown COMPLETE BLOOD COUNT [id number] Baso Auto 0.4 % 0 Unknown COMPLETE BLOOD COUNT [id number] Neutrophil Abs 2.57 10e9/L Unknown COMPLETE BLOOD COUNT [id number] Lymphocyte Abs 1.51 10e9/L Unknown COMPLETE BLOOD COUNT [id number] Monocyte Abs 0.55 10e9/L 09/17 Unknown COMPLETE BLOOD COUNT [id number] Eosinophil Abs 0.25 10e9/L Unknown COMPLETE BLOOD COUNT [id number] Basophil Abs 0.02 10e9/L 09/17 Unknown COMPLETE BLOOD COUNT [id number] RDW-SD 43.9 fL 0 Unknown GFR CALC 5599503 GFR Afr Amr >60 mL/min 09/30/2019 Unknow n GFR CALC 4891584 GFR Non Afr Amr >60 mL/min 09/30/2019 Un known THYROID STIMULATING HORMONE 43585 TSH 1.129 uIU/mL 09/30/2019 Unknown PSA EQUIMOLAR BARBIE 32469 PSA Total 0.77 ng/mL 0 Unknown [facility] 24529 Cholesterol 192 mg/dL 09/30/2019 Unkno wn [facility] 70423 Triglyceride 86 mg/dL 09/30/2019 Unkn own [facility] 81697 HDL CHOLESTEROL 64 mg/dL 09/30/2019 U nknown [facility] 75342 Chol/HDL Ratio 3.00 ratio 09/30/2019 U nknown [facility] 80229 NON-HDL Chol 128 mg/dL 09/30/2019 Unkn own [facility] 51809 LDL Cholesterol 111 mg/dL 09/30/2019 U nknown COMPREHENSIVE METABOLIC 60651 AST 17 U/L 2019 Unknown COMPREHENSIVE METABOLIC 27004 ALT 10 U/L 2019 Unknown COMPREHENSIVE METABOLIC 20231 BUN 13 mg/dL 2019 Unknown COMPREHENSIVE METABOLIC 24267 ALBUMIN 4.3 g/dL 2019 Unknown COMPREHENSIVE METABOLIC 62239 CHLORIDE 102 mmol/L 09/30 Unknown COMPREHENSIVE METABOLIC 98605 Bili Total 0.6 mg/dL 09/30 Unknown COMPREHENSIVE METABOLIC 64178 ALK PHOS 91 U/L 2019 Unknown COMPREHENSIVE METABOLIC 91722 SODIUM 138 mmol/L 09/30 Unknown COMPREHENSIVE METABOLIC 37962 CREATININE 1.09 mg/dL 09/17 Unknown COMPREHENSIVE METABOLIC 13251 CALCIUM 9.0 mg/dL 2019 Unknown COMPREHENSIVE METABOLIC 03399 POTASSIUM 4.5 mmol/L 09/30 Unknown COMPREHENSIVE METABOLIC 24628 Total Protein 6.8 g/dL Unknown COMPREHENSIVE METABOLIC 03077 Glucose 91 mg/dL 2019 Unknown COMPREHENSIVE METABOLIC 94181 Bicarbonate 28 mmol/L 09/17 Unknown COMPREHENSIVE METABOLIC 35318 AGAP 8 mmol/L 2019 Unknown COMPLETE BLOOD COUNT [id number] WBC 4.9 10e9/L 09/04/20 18 Unknown COMPLETE BLOOD COUNT [id number] RBC 4.42 10e12/L 2017 Unknown COMPLETE BLOOD COUNT [id number] HEMOGLOBIN 13.4 g/dL 09/04/20 18 Unknown COMPLETE BLOOD COUNT [id number] HEMATOCRIT 40.5 % 09/04/20 18 Unknown COMPLETE BLOOD COUNT 7855508 MCV 91.6 fL 8 Unknown COMPLETE BLOOD COUNT [id number] MCH 30.3 pg 8 Unknown COMPLETE BLOOD COUNT [id number] MCHC 33.1 g/dL 8 Unknown COMPLETE BLOOD COUNT 1861263 PLATELET COUNT 224 10e9/L Unknown COMPLETE BLOOD COUNT 8567432 Mean Plt Volume 9.9 fL Unknown COMPLETE BLOOD COUNT 6251718 Neut Auto 60.8 % 8 Unknown COMPLETE BLOOD COUNT 9433047 Lymph Auto 26.8 % 09/04/20 18 Unknown COMPLETE BLOOD COUNT 2785520 [place] Auto 10.4 % 8 Unknown COMPLETE BLOOD COUNT 3073267 Eos Auto 1.6 % 8 Unknown COMPLETE BLOOD COUNT 8390893 RDW 12.8 % 8 Unknown COMPLETE BLOOD COUNT 9869771 Baso Auto 0.4 % 8 Unknown COMPLETE BLOOD COUNT 6272571 Neutrophil Abs 2.98 10e9/L Unknown COMPLETE BLOOD COUNT 7007025 Lymphocyte Abs 1.31 10e9/L Unknown COMPLETE BLOOD COUNT [id number] Monocyte Abs 0.51 10e9/L 08/17 Unknown COMPLETE BLOOD COUNT [id number] Eosinophil Abs 0.08 10e9/L Unknown COMPLETE BLOOD COUNT [id number] RDW-SD 41.6 fL 8 Unknown COMPLETE BLOOD COUNT [id number] Basophil Abs 0.02 10e9/L 08/17 Unknown COMPREHENSIVE METABOLIC 19114 AST 16 U/L 2017 Unknown COMPREHENSIVE METABOLIC 67211 ALT 8 U/L 2017 Unknown COMPREHENSIVE METABOLIC 56989 BUN 12 mg/dL 2017 Unknown COMPREHENSIVE METABOLIC 11016 ALBUMIN 4.4 g/dL 2017 Unknown COMPREHENSIVE METABOLIC 40995 CHLORIDE 107 mmol/L 09/04 Unknown COMPREHENSIVE METABOLIC 17904 Bili Total 1.0 mg/dL 09/04 Unknown COMPREHENSIVE METABOLIC 81969 ALK PHOS 58 U/L 2017 Unknown COMPREHENSIVE METABOLIC 16032 SODIUM 142 mmol/L 09/04 Unknown COMPREHENSIVE METABOLIC 45019 CREATININE 0.97 mg/dL 08/17 Unknown COMPREHENSIVE METABOLIC 08492 CALCIUM 9.2 mg/dL 2017 Unknown COMPREHENSIVE METABOLIC 64925 POTASSIUM 4.6 mmol/L 09/04 Unknown COMPREHENSIVE METABOLIC 82100 Total Protein 6.5 g/dL Unknown COMPREHENSIVE METABOLIC 99077 Glucose 96 mg/dL 2017 Unknown COMPREHENSIVE METABOLIC 07712 Bicarbonate 29 mmol/L 08/17 Unknown COMPREHENSIVE METABOLIC 23654 AGAP 6 mmol/L 2017 Unknown LIP[facility] GROUP 95925 Cholesterol 182 mg/dL 09/04/2018 Unkno wn L[facility] GROUP 07593 Triglyceride 84 mg/dL 09/04/2018 Unkn own L[facility] GROUP 07312 HDL CHOLESTEROL 76 mg/dL 09/04/2018 U nknown L[facility] 51694 Chol/HDL Ratio 2.39 ratio 09/04/2018 U nknown L[facility] GROUP 94635 NON-HDL Chol 106 mg/dL 09/04/2018 Unkn own [facility] GROUP 50706 LDL Cholesterol 89 mg/dL 09/04/2018 U nknown GFR CALC 2157871 GFR Non Afr Amr >60 mL/min 09/04/2018 Un known GFR CALC 1093418 GFR Afr Amr >60 mL/min 09/04/2018 Unknow n THYROID STIMULATING HORMONE 91482 TSH 0.713 uIU/mL 09/04/2018 Unknown PSA EQUIMOLAR BARBIE 16031 PSA Total 0.66 ng/mL 8 Unknown A FOOD C P [id number] [place] Cl Class 0 11/17/2017 Unknown A FOOD C P [id number] [place] Ct <0.35 kU/L 11/17/2017 Unknow n A FOOD C P [id number] [place] Cl Class 0 11/17/2017 Unkn own A FOOD C P [id number] [place] Ct <0.35 kU/L 11/17/2017 Unk nown A FOOD C P [id number] [place] Cl Class 0 11/17/2017 Unkno wn A FOOD C P [id number] Egg White Ct <0.35 kU/L 11/17/2017 Unkn own A FOOD C P 0058917 Egg Yolk Cl Class 0 11/17/2017 Unknow n A FOOD C P 1745508 Egg Yolk Ct <0.35 kU/L 11/17/2017 Unkno wn A FOOD C P 0572581 [place] Cl Class 0 11/17/2017 Unknow n A FOOD C P 0145070 Cow Milk Ct <0.35 kU/L 11/17/2017 Unkno wn A FOOD C P 7310599 Pe[place] Cl Class 0 11/17/2017 Unknown A FOOD C P [id number] Peanut Ct <0.35 kU/L 11/17/2017 Unknown A FOOD C P [id number] [place] Cl Class 0 11/17/2017 Unknown A FOOD C P [id number] [place] Ct <0.35 kU/L 11/17/2017 Unknown A FOOD C P [id number] [place] Cl Class 0 11/17/2017 Unknown A FOOD C P [id number] [place] Ct <0.35 kU/L 11/17/2017 Unknow n A FOOD C P 0852870 [place] Cl Class 0 11/17/2017 Unknown A FOOD C P [id number] Wheat Ct <0.35 kU/L 11/17/2017 Unknown A FOOD C P 1239032 Potato Cl Class 0 11/17/2017 Unknown A FOOD C P [id number] Potato Ct <0.35 kU/L 11/17/2017 Unknown A FOOD C P [id number] Beef Cl Class 2 11/17/2017 Unknown A FOOD C P [id number] Beef Ct 0.88 kU/L 11/17/2017 Unknown A FOOD C P [id number] [place] Cl Class 0 11/17/2017 Unknown A FOOD C P [id number] [place] Ct <0.35 kU/L 11/17/2017 Unknown A FOOD C P [id number] [place] Cl Class 0 11/17/2017 Unknown A FOOD C P [id number] [place] Ct <0.35 kU/L 11/17/2017 Unknown A FOOD C P [id number] [place] Cl Class 0 11/17/2017 Unknown A FOOD C P [id number] [place] Ct <0.35 kU/L 11/17/2017 Unknown A FOOD C P [id number] [place] Cl Class 0 11/17/2017 Unkn own A FOOD C P [id number] [place] Ct <0.35 kU/L 11/17/2017 Unk nown A FOOD C P [id number] [place] Cl Class 0 11/17/2017 Unknown A FOOD C P 7448571 [place] Ct <0.35 kU/L 11/17/2017 Unknown A FOOD C P 7233799 [place] Cl Class 0 11/17/2017 Unknown A FOOD C P [id number] [place] Ct <0.35 kU/L 11/17/2017 Unknown A FOOD C P [id number] [place] [facility] Class 0 11/17/2017 Unknown A FOOD C P 8739179 [place] <0.35 kU/L 11/17/2017 Unknown A FOOD C P 7356949 [place] Cl Class 0 11/17/2017 Unknown A FOOD C P [id number] [place] Ct <0.35 kU/L 11/17/2017 Unknown A FOOD C P [id number] Oat Cl Class 0 11/17/2017 Unknown A FOOD C P 6007842 Oat Ct <0.35 kU/L 11/17/2017 Unknown A FOOD C P 7051604 [place] Cl Class 0 11/17/2017 Unknown A FOOD C P 3121549 [place] Ct <0.35 kU/L 11/17/2017 Unknown A FOOD C P 8333468 [place] CL Class 0 11/17/2017 Un known A FOOD C P [id number] Chicken Meat Ct <0.35 kU/L 11/17/2017 U nknown A FOOD C P 6893867 [place] Cl Class 0 11/17/2017 Unknown A FOOD C P [id number] [place] Ct <0.35 kU/L 11/17/2017 Unknown A FOOD C P [id number] [place] Cl Class 0 11/17/2017 Unkn own A FOOD C P [id number] [place] Ct <0.35 kU/L 11/17/2017 Unk nown A NUTS PNL 5421073 [place] Cl Class 0 11/17/2017 Unknown A NUTS PNL 8322350 [place] Ct <0.35 kU/L 11/17/2017 Unknown A NUTS PNL 6321504 [place] Cl Class 0 11/17/2017 Unk nown A NUTS PNL 5332069 [place] [facility] <0.35 kU/L 11/17/2017 Un known A NUTS PNL 4888046 [place] Cl Class 0 11/17/2017 Unkn own A NUTS PNL [id number] [place] Ct <0.35 kU/L 11/17/2017 Unk nown A NUTS PNL 7758487 [place] Cl Class 0 11/17/2017 Unknown A NUTS PNL 1070262 [place] [facility] <0.35 kU/L 11/17/2017 Unknown A NUTS PNL 7669542 [place] Cl Class 0 11/17/2017 Unknow n A NUTS PNL [id number] [place] Ct <0.35 kU/L 11/17/2017 Unkno wn A NUTS PNL 5928881 [place] Cl Class 0 11/17/2017 Unkno wn A NUTS PNL 4908697 [place] Ct <0.35 kU/L 11/17/2017 Unkn own A NUTS PNL 9829762 [place] Cl Class 0 11/17/2017 Unknown A NUTS PNL 5111322 [place] Ct <0.35 kU/L 11/17/2017 Unknown A NUTS PNL 5733910 [place] Cl Class 0 11/17/2017 Unkno wn A NUTS PNL [id number] [place] Ct <0.35 kU/L 11/17/2017 Unkn own A NUTS PNL 8964846 Allergen Interp See Note 11/17/2017 Un known A FRT/VG P [id number] [place] Cl Class 0 11/17/2017 Unkn own A FRT/VG P [id number] [place] Ct <0.35 kU/L 11/17/2017 Unk nown A FRT/VG P [id number] [place] Cl Class 0 11/17/2017 Unknown A FRT/VG P [id number] [place] Ct <0.35 kU/L 11/17/2017 Unknown A FRT/VG P [id number] [place] Cl Class 0 11/17/2017 Unkn own A FRT/VG P [id number] [place] [facility] <0.35 kU/L 11/17/2017 Unk nown A FRT/VG P [id number] [place] Cl Class 0 11/17/2017 Unknown A FRT/VG P [id number] [place] Ct <0.35 kU/L 11/17/2017 Unknown A FRT/VG P [id number] [place] Cl Class 0 11/17/2017 Unknown A FRT/VG P [id number] [place] Ct <0.35 kU/L 11/17/2017 Unknown A FRT/VG P [id number] [place] Cl Class 1 11/17/2017 Unknown A FRT/VG P [id number] [place] Ct 0.48 kU/L 11/17/2017 Unknown A FRT/VG P [id number] [place] Cl Class 0 11/17/2017 Unk nown A FRT/VG P [id number] [place] Ct <0.35 kU/L 11/17/2017 Un known A FRT/VG P [id number] [place] Cl Class 0 11/17/2017 Unk nown A FRT/VG P [id number] [place] Ct <0.35 kU/L 11/17/2017 Un known A FRT/VG P 0905807 [place] Cl Class 0 11/17/2017 Unknown A FRT/VG P [id number] [place] Ct <0.35 kU/L 11/17/2017 Unknown A FRT/VG P 2802131 [place] Cl Class 0 11/17/2017 Unknown A FRT/VG P 6289357 [place] Ct <0.35 kU/L 11/17/2017 Unknown A FRT/VG P 1439905 [place] Cl Class 0 11/17/2017 Unkn own A FRT/VG P [id number] [place] Ct <0.35 kU/L 11/17/2017 Unk nown A FRT/VG P [id number] [place] Cl Class 0 11/17/2017 Unkn own A FRT/VG P [id number] Swt [place] Ct <0.35 kU/L 11/17/2017 Unk nown THYROID STIMULATING HORMONE 00909 TSH 1.371 uIU/mL 09/03/2017 Unknown FREE T4 21997 T4 Free 1.26 ng/dL 09/03/2017 Unknown ASSAY TRIIODOTHYRONINE (T3) 38391 T3 Total 0.9 ng/mL Unknown COMPLETE BLOOD COUNT [id number] WBC 5.9 10e9/L 07/31/20 17 Unknown COMPLETE BLOOD COUNT [id number] RBC 4.64 10e12/L 2016 Unknown COMPLETE BLOOD COUNT 4955007 HEMOGLOBIN 14.2 g/dL 07/31/20 17 Unknown COMPLETE BLOOD COUNT 5856841 HEMATOCRIT 42.1 % 07/31/20 17 Unknown COMPLETE BLOOD COUNT 1006931 MCV 90.7 fL 7 Unknown COMPLETE BLOOD COUNT 6293823 MCH 30.6 pg 7 Unknown COMPLETE BLOOD COUNT 5577306 MCHC 33.7 g/dL 7 Unknown COMPLETE BLOOD COUNT 3281053 PLATELET COUNT 195 10e9/L Unknown COMPLETE BLOOD COUNT 6665267 Mean Plt Volume 10.0 fL Unknown COMPLETE BLOOD COUNT 2245090 Neut Auto 47.5 % 7 Unknown COMPLETE BLOOD COUNT 6187856 Lymph Auto 37.4 % 07/31/20 17 Unknown COMPLETE BLOOD COUNT 8169113 [place] Auto 11.7 % 7 Unknown COMPLETE BLOOD COUNT 7798182 Eos Auto 3.2 % 7 Unknown COMPLETE BLOOD COUNT 3071276 RDW 12.8 % 7 Unknown COMPLETE BLOOD COUNT 9665918 Baso Auto 0.2 % 7 Unknown COMPLETE BLOOD COUNT [id number] Neutrophil Abs 2.80 10e9/L Unknown COMPLETE BLOOD COUNT 4352275 Lymphocyte Abs 2.21 10e9/L Unknown COMPLETE BLOOD COUNT 5164493 Monocyte Abs 0.69 10e9/L 07/18 Unknown COMPLETE BLOOD COUNT [id number] Eosinophil Abs 0.19 10e9/L Unknown COMPLETE BLOOD COUNT 9376460 RDW-SD 41.6 fL 7 Unknown COMPLETE BLOOD COUNT [id number] Basophil Abs 0.01 10e9/L 07/18 Unknown LIPID GROUP 58328 Cholesterol 186 mg/dL 07/31/2017 Unkno wn LIPID GROUP 21870 Triglyceride 129 mg/dL 07/31/2017 Unkn own LIPID GROUP 98285 HDL CHOLESTEROL 79 mg/dL 07/31/2017 U nknown LIP[facility] GROUP 75140 Chol/HDL Ratio 2.35 ratio 07/31/2017 U nknown L[facility] GROUP 16393 NON-HDL Chol 107 mg/dL 07/31/2017 Unkn own LIPID GROUP 10867 LDL Cholesterol 81 mg/dL 07/31/2017 U nknown GFR CALC 2238582 GFR Non Afr Amr >60 mL/min 07/31/2017 Un known GFR CALC 2412721 GFR Afr Amr >60 mL/min 07/31/2017 Unknow n COMPREHENSIVE METABOLIC 03478 AST 19 U/L 2016 Unknown COMPREHENSIVE METABOLIC 39765 ALT 12 U/L 2016 Unknown COMPREHENSIVE METABOLIC 49745 BUN 15 mg/dL 2016 Unknown COMPREHENSIVE METABOLIC 85815 ALBUMIN 4.4 g/dL 2016 Unknown COMPREHENSIVE METABOLIC 94553 CHLORIDE 102 mmol/L 07/31 Unknown COMPREHENSIVE METABOLIC 16311 Bili Total 0.9 mg/dL 07/31 Unknown COMPREHENSIVE METABOLIC 03104 ALK PHOS 53 U/L 2016 Unknown COMPREHENSIVE METABOLIC 65962 SODIUM 138 mmol/L 07/31 Unknown COMPREHENSIVE METABOLIC 13091 CREATININE 1.06 mg/dL 07/18 Unknown COMPREHENSIVE METABOLIC 07013 CALCIUM 9.3 mg/dL 2016 Unknown COMPREHENSIVE METABOLIC 97225 POTASSIUM 4.0 mmol/L 07/31 Unknown COMPREHENSIVE METABOLIC 52505 Total Protein 6.8 g/dL Unknown COMPREHENSIVE METABOLIC 89753 Glucose 86 mg/dL 2016 Unknown COMPREHENSIVE METABOLIC 18198 Bicarbonate 28 mmol/L 07/18 Unknown COMPREHENSIVE METABOLIC 56356 AGAP 8 mmol/L 2016 Unknown COMPREHENSIVE METABOLIC 86865 AST 18 U/L 2015 Unknown COMPREHENSIVE METABOLIC 85742 ALT 9 U/L 2015 Unknown COMPREHENSIVE METABOLIC 66956 BUN 11 mg/dL 2015 Unknown COMPREHENSIVE METABOLIC 21781 ALBUMIN 4.2 g/dL 2015 Unknown COMPREHENSIVE METABOLIC 77534 CHLORIDE 104 mmol/L 05/19 Unknown COMPREHENSIVE METABOLIC 80103 Bili Total 1.2 mg/dL 05/19 Unknown COMPREHENSIVE METABOLIC 34750 ALK PHOS 54 U/L 2015 Unknown COMPREHENSIVE METABOLIC 26730 SODIUM 140 mmol/L 05/19 Unknown COMPREHENSIVE METABOLIC 44899 CREATININE 1.03 mg/dL 10/2015 Unknown COMPREHENSIVE METABOLIC 91678 CALCIUM 9.3 mg/dL 2015 Unknown COMPREHENSIVE METABOLIC 92324 POTASSIUM 4.9 mmol/L 05/19 Unknown COMPREHENSIVE METABOLIC 56094 Total Protein 6.7 g/dL Unknown COMPREHENSIVE METABOLIC 41404 Glucose 92 mg/dL 2015 Unknown COMPREHENSIVE METABOLIC 31691 Bicarbonate 28 mmol/L 10/2015 Unknown COMPREHENSIVE METABOLIC 79237 AGAP 8 mmol/L 2015 Unknown THYROID STIMULATING HORMONE 47111 TSH 1.545 uIU/mL 05/19/2016 Unknown GFR CALC 0303555 GFR Non Afr Amr >60 mL/min 05/19/2016 Un known GFR CALC 0233429 GFR Afr Amr >60 mL/min 05/19/2016 Unknow n VITAMIN B 12 12243 VITAMIN B12 298 pg/mL 05/19/2016 Unkn own COMPLETE BLOOD COUNT [id number] WBC 5.2 10e9/L 05/19/20 16 Unknown COMPLETE BLOOD COUNT [id number] RBC 4.34 10e12/L 2015 Unknown COMPLETE BLOOD COUNT 6841890 HEMOGLOBIN 12.9 g/dL 05/19/20 16 Unknown COMPLETE BLOOD COUNT 1163864 HEMATOCRIT 38.9 % 05/19/20 16 Unknown COMPLETE BLOOD COUNT 6764500 MCV 89.6 fL 6 Unknown COMPLETE BLOOD COUNT 5970432 MCH 29.7 pg 6 Unknown COMPLETE BLOOD COUNT 4932704 MCHC 33.2 g/dL 6 Unknown COMPLETE BLOOD COUNT 3174050 PLATELET COUNT 200 10e9/L 10/2015 Unknown COMPLETE BLOOD COUNT 3653785 Mean Plt Volume 10.1 fL 10/2015 Unknown COMPLETE BLOOD COUNT 5456086 Neut Auto 45.4 % 6 Unknown COMPLETE BLOOD COUNT 6587438 Lymph Auto 35.6 % 05/19/20 16 Unknown COMPLETE BLOOD COUNT 1084676 [place] Auto 11.9 % 6 Unknown COMPLETE BLOOD COUNT 2334518 RDW 12.7 % 6 Unknown COMPLETE BLOOD COUNT 1263214 Eos Auto 6.7 % 6 Unknown COMPLETE BLOOD COUNT 0024053 Baso Auto 0.4 % 6 Unknown COMPLETE BLOOD COUNT [id number] Neutrophil Abs 2.36 10e9/L Unknown COMPLETE BLOOD COUNT 5370086 Lymphocyte Abs 1.85 10e9/L Unknown COMPLETE BLOOD COUNT 4880105 Monocyte Abs 0.62 10e9/L 10/2015 Unknown COMPLETE BLOOD COUNT [id number] Eosinophil Abs 0.35 10e9/L Unknown COMPLETE BLOOD COUNT 3483413 RDW-SD 40.6 fL 6 Unknown COMPLETE BLOOD COUNT 1184915 Basophil Abs 0.02 10e9/L 10/2015 Unknown LIPID GROUP 00586 Cholesterol 197 mg/dL 05/19/2016 Unkno wn LIPID GROUP 35583 Triglyceride 92 mg/dL 05/19/2016 Unkn own LIPID GROUP 74111 HDL CHOLESTEROL 58 mg/dL 05/19/2016 U nknown LIPID GROUP 72527 Chol/HDL Ratio 3.40 ratio 05/19/2016 U nknown LIPID GROUP 47305 NON-HDL Chol 139 mg/dL 05/19/2016 Unkn own LIPID GROUP 85336 LDL Cholesterol 121 mg/dL 05/19/2016 U nknown FREE T4 10356 T4 Free 1.19 ng/dL 05/19/2016 Unknown COMPREHENSIVE METABOLIC 15277 AST 19 U/L 2014 Unknown COMPREHENSIVE METABOLIC 82849 ALT 10 IU/L 2014 Unknown COMPREHENSIVE METABOLIC 66434 BUN 20 MG/DL 2014 Unknown COMPREHENSIVE METABOLIC 60155 ALBUMIN 4.4 GM/DL 2014 Unknown COMPREHENSIVE METABOLIC 86523 CHLORIDE 104 MMOL/L 04/05 Unknown COMPREHENSIVE METABOLIC 08950 BILI TOT 2.2 MG/DL 2014 Unknown COMPREHENSIVE METABOLIC 99019 ALK PHOS 55 U/L 2014 Unknown COMPREHENSIVE METABOLIC 67254 SODIUM 138 MMOL/L 04/05 Unknown COMPREHENSIVE METABOLIC 82624 CREATININE 1.04 MG/DL 03/18 Unknown COMPREHENSIVE METABOLIC 11370 CALCIUM 9.3 MG/DL 2014 Unknown COMPREHENSIVE METABOLIC 48754 POTASSIUM 4.5 MMOL/L 04/05 Unknown COMPREHENSIVE METABOLIC 43623 PROT TOT 6.7 GM/DL 2014 Unknown COMPREHENSIVE METABOLIC 25812 Glucose 77 MG/DL 2014 Unknown COMPREHENSIVE METABOLIC 11573 BICARB 25 MMOL/L 2014 Unknown COMPREHENSIVE METABOLIC 45560 ANION GAP 9 MEQ/L 2014 Unknown GFR CALC 4733454 GFR AA >60 ML/MIN 04/05/2015 Unknown GFR CALC 5773046 GFR NON-AA >60 ML/MIN 04/05/2015 Unknown LIPID GROUP 25567 HDL TEST 60 MG/DL 04/05/2015 Unknown LIPID GROUP 01058 TRIG 70 MG/DL 04/05/2015 Unknown LIPID GROUP 00261 TEST LDL 137 MG/DL 04/05/2015 Unknown LIPID GROUP 75175 CHOL 211 MG/DL 04/05/2015 Unknown LIPID GROUP 72737 RCHOL/HDL 3.52 RATIO 04/05/2015 Unknow n LIPID GROUP 89298 NON-HDL CH 151 MG/DL 04/05/2015 Unknow n COMPLETE BLOOD COUNT [id number] WBC 5.3 10e9/L 04/05/20 15 Unknown COMPLETE BLOOD COUNT [id number] RBC 4.42 10e12/L 2014 Unknown COMPLETE BLOOD COUNT 6565165 HGB 13.4 g/dL 5 Unknown COMPLETE BLOOD COUNT 5151914 HCT DET 39.6 % 5 Unknown COMPLETE BLOOD COUNT 2658054 MCV 89.6 fL 5 Unknown COMPLETE BLOOD COUNT 6704116 MCH 30.3 pg 5 Unknown COMPLETE BLOOD COUNT 8926762 MCHC 33.8 g/dL 5 Unknown COMPLETE BLOOD COUNT 0361072 PLT 201 10e9/L 04/05/20 15 Unknown COMPLETE BLOOD COUNT [id number] MPV 10.3 fL 5 Unknown COMPLETE BLOOD COUNT [id number] LUPE % 56.4 % 5 Unknown COMPLETE BLOOD COUNT 1427415 LY % 24.8 % 5 Unknown COMPLETE BLOOD COUNT [id number] MON % 12.8 % 5 Unknown COMPLETE BLOOD COUNT [id number] EOS % 5.4 % 5 Unknown COMPLETE BLOOD COUNT [id number] BASO % 0.6 % 5 Unknown COMPLETE BLOOD COUNT [id number] RDW 13.2 % 5 Unknown COMPLETE BLOOD COUNT [id number] ABS LUPE 2.99 10e9/L 015 Unknown COMPLETE BLOOD COUNT [id number] ABS LYMPH 1.31 10e9/L 015 Unknown COMPLETE BLOOD COUNT [id number] ABS MONO 0.68 10e9/L 015 Unknown COMPLETE BLOOD COUNT [id number] ABS EOS 0.29 10e9/L 015 Unknown COMPLETE BLOOD COUNT [id number] ABS BASO 0.03 10e9/L 015 Unknown COMPLETE BLOOD COUNT [id number] RDW-SD 42.3 fL 5 Unknown LIPID GROUP 66710 HDL TEST 51 MG/DL 07/19/2012 Unknown LIPID GROUP 90249 TRIG 129 MG/DL 07/19/2012 Unknown LIPID GROUP 99490 TEST LDL 98 MG/DL 07/19/2012 Unknown LIPID GROUP 99910 CHOL 175 MG/DL 07/19/2012 Unknown LIPID GROUP 72378 RCHOL/HDL 3.43 RATIO 07/19/2012 Unknow n COMPREHENSIVE METABOLIC 35576 AST 18 U/L 2011 Unknown COMPREHENSIVE METABOLIC 45283 ALT 12 IU/L 2011 Unknown COMPREHENSIVE METABOLIC 79356 BUN 10 MG/DL 2011 Unknown COMPREHENSIVE METABOLIC 41629 ALBUMIN 4.1 GM/DL 2011 Unknown COMPREHENSIVE METABOLIC 55328 CHLORIDE 103 MMOL/L 07/19 Unknown COMPREHENSIVE METABOLIC 71151 BILI TOT 0.9 MG/DL 2011 Unknown COMPREHENSIVE METABOLIC 65382 ALK PHOS 62 U/L 2011 Unknown COMPREHENSIVE METABOLIC 70493 SODIUM 138 MMOL/L 07/19 Unknown COMPREHENSIVE METABOLIC 62172 CREATININE 1.08 MG/DL 10/2011 Unknown COMPREHENSIVE METABOLIC 93989 CALCIUM 9.1 MG/DL 2011 Unknown COMPREHENSIVE METABOLIC 15132 POTASSIUM 4.2 MMOL/L 07/19 Unknown COMPREHENSIVE METABOLIC 47181 PROT TOT 6.7 GM/DL 2011 Unknown COMPREHENSIVE METABOLIC 10085 Glucose 101 MG/DL 2011 Unknown COMPREHENSIVE METABOLIC 00420 BICARB 27 MMOL/L 2011 Unknown COMPREHENSIVE METABOLIC 54515 ANION GAP 8 MEQ/L 2011 Unknown GFR CALC [id number] GFR AA >60 ML/MIN 07/19/2012 Unknown GFR CALC [id number] GFR NON-AA >60 ML/MIN 07/19/2012 Unknown Procedures Procedure Codes Date ROUTINE VENIPUNCTURE CPT-4: 01158 09/30/2019 COMPREHEN METABOLIC PANEL CPT-4: 21412 09/30/2019 COMPLETE CBC W/AUTO DIFF WBC CPT-4: 24288 09/30/2019 ASSAY OF PSA TOTAL CPT-4: 73109 09/30/2019 ASSAY THYROID STIM HORMONE CPT-4: 15913 09/30/2019 LIPID PANEL CPT-4: 12439 09/30/2019 ROUTINE VENIPUNCTURE CPT-4: 77314 09/24/2019 COMPLETE CBC W/AUTO DIFF WBC CPT-4: 14933 09/24/2019 COMPREHEN METABOLIC PANEL CPT-4: 33112 09/24/2019 LIPID PANEL CPT-4: 06583 09/24/2019 ASSAY THYROID STIM HORMONE CPT-4: 09377 09/24/2019 THER/PROPH/DIAG INJ SC/IM CPT-4: 85908 01/13/2019 TRIAMCINOLONE ACET INJ NOS CPT-4: J3301 01/13/2019 DEXAMETHASONE SODIUM PHOS CPT-4: J1100 01/13/2019 ROUTINE VENIPUNCTURE CPT-4: 00976 09/04/2018 COMPREHEN METABOLIC PANEL CPT-4: 04891 09/04/2018 COMPLETE CBC W/AUTO DIFF WBC CPT-4: 25928 09/04/2018 LIPID PANEL CPT-4: 01980 09/04/2018 ASSAY OF PSA TOTAL CPT-4: 22983 09/04/2018 ASSAY THYROID STIM HORMONE CPT-4: 52470 09/04/2018 URINALYSIS NONAUTO W/O SCOPE CPT-4: 36825 05/15/2018 ROUTINE VENIPUNCTURE CPT-4: 50387 11/16/2017 A FRT/VG P CPT-4: 4657979 11/16/2017 A FOOD C P CPT-4: 0683500 11/16/2017 A NUTS PNL CPT-4: 6011557 11/16/2017 THER/PROPH/DIAG INJ SC/IM CPT-4: 94281 11/06/2017 TRIAMCINOLONE ACET INJ NOS CPT-4: J3301 11/06/2017 DEXAMETHASONE SODIUM PHOS CPT-4: J1100 11/06/2017 ROUTINE VENIPUNCTURE CPT-4: 62165 09/03/2017 ASSAY OF FREE THYROXINE CPT-4: 35806 09/03/2017 ASSAY THYROID STIM HORMONE CPT-4: 65941 09/03/2017 ASSAY TRIIODOTHYRONINE (T3) CPT-4: 61155 09/03/2017 ROUTINE VENIPUNCTURE CPT-4: 96221 07/31/2017 COMPREHEN METABOLIC PANEL CPT-4: 72326 07/31/2017 COMPLETE CBC W/AUTO DIFF WBC CPT-4: 30413 07/31/2017 LIPID PANEL CPT-4: 38955 07/31/2017 FLU VACC PRSV FREE INC ANTIG 65 AND OLDER CPT-4: 87551 07/04/2017 ADMIN INFLUENZA VIRUS VAC CPT-4: G0008 07/04/2017 ROUTINE VENIPUNCTURE CPT-4: 46865 02/26/2017 ASSAY THYROID STIM HORMONE CPT-4: 24783 02/26/2017 COMPREHEN METABOLIC PANEL CPT-4: 66516 02/26/2017 COMPLETE CBC W/AUTO DIFF WBC CPT-4: 37016 02/26/2017 LIPID PANEL CPT-4: 13993 02/26/2017 ASSAY OF PSA TOTAL CPT-4: 15611 02/26/2017 FLUZONE, 5ML (Medicare) CPT-4: Q2038 06/28/2016 ADMIN INFLUENZA VIRUS VAC CPT-4: G0008 06/28/2016 ROUTINE VENIPUNCTURE CPT-4: 24823 05/19/2016 ASSAY OF FREE THYROXINE CPT-4: 84303 05/19/2016 ASSAY THYROID STIM HORMONE CPT-4: 06986 05/19/2016 COMPREHEN METABOLIC PANEL CPT-4: 46473 05/19/2016 COMPLETE CBC W/AUTO DIFF WBC CPT-4: 92483 05/19/2016 LIPID PANEL CPT-4: 77481 05/19/2016 VITAMIN B-12 CPT-4: 50198 05/19/2016 PPPS, initial visit CPT-4: G0438 05/10/2016 ROUTINE VENIPUNCTURE CPT-4: 06460 04/05/2015 ASSAY THYROID STIM HORMONE CPT-4: 23069 04/05/2015 COMPREHEN METABOLIC PANEL CPT-4: 62149 04/05/2015 COMPLETE CBC W/AUTO DIFF WBC CPT-4: 35453 04/05/2015 LIPID PANEL CPT-4: 00823 04/05/2015 ASSAY OF PSA TOTAL CPT-4: 10370 04/05/2015 ROUTINE VENIPUNCTURE CPT-4: 83275 07/19/2012 COMPREHEN METABOLIC PANEL CPT-4: 36056 07/19/2012 LIPID PANEL CPT-4: 69198 07/19/2012 ELECTROCARDIOGRAM COMPLETE CPT-4: 57019 03/22/2012 Vital Signs Date Vital 09/24/2019 Blood Pressure 1: 125/72 Code: 8480-6 BMI: 19.8 Code: 04492-9 Heart Rate 1: 88 bpm Height: 5'11" [...] 1: 102/60 Code: 8480-6 BMI: 19.1 Code: 94540-8 Heart Rate 1: 82 bpm Height: 5'11" Respiratory Rate: 22 bpm SpO2: 97% Tempera ture: 36.4 (C) / 97.6 (F) Weight: 137 lbs 04/25/2018 Blood Pressure 1: 118/64 Code: 8480-6 BMI: 19.2 Code: 40535-7 Heart Rate 1: 98 bpm Height: 5'11" Respiratory Rate: 20 bpm SpO2: 99% Tempera ture: 36.4 (C) / 97.6 (F) Weight: 138 lbs 11/06/2017 Blood Pressure 1: 108/68 Code: 8480-6 BMI: 18.5 Code: 65475-9 Heart Rate 1: 68 bpm Height: 5'11" Respiratory Rate: 20 bpm SpO2: 96% Tempera ture: 36.8 (C) / 98.2 (F) Weight: 133 lbs 09/03/2017 Blood Pressure 1: 122/64 Code: 8480-6 BMI: 17.6 Code: 49356-8 Heart Rate 1: 90 bpm Height: 5'11" Respiratory Rate: 20 bpm SpO2: 98% Tempera ture: 36.4 (C) / 97.6 (F) Weight: 126 lbs 08/21/2017 Blood Pressure 1: 114/80 Code: 8480-6 BMI: 17.9 Code: 70663-8 Heart Rate 1: 80 bpm Height: 5'11" Respiratory Rate: 20 bpm SpO2: 95% Tempera ture: 36.6 (C) / 97.9 (F) Weight: 128 lbs 02/13/2017 Blood Pressure 1: 122/60 Code: 8480-6 BMI: 18.5 Code: 35255-8 Heart Rate 1: 76 bpm Height: 5'11" Respiratory Rate: 20 bpm SpO2: 96% Tempera ture: 36.9 (C) / 98.4 (F) Weight: 133 lbs 11/23/2016 Blood Pressure 1: 126/70 Code: 8480-6 BMI: 18.5 Code: 29238-3 Heart Rate 1: 100 bpm Height: 5'11" Respiratory Rate: 20 bpm SpO2: 96% Tempera ture: 37.1 (C) / 98.8 (F) Weight: 133 lbs 05/23/2016 Blood Pressure 1: 128/82 Code: 8480-6 BMI: 18.5 Code: 97927-7 Heart Rate 1: 88 bpm Height: 5'11" Respiratory Rate: 20 bpm Temperature: 36 .7 (C) / 98.0 (F) Weight: 133 lbs 05/10/2016 Blood Pressure 1: 146/70 Code: 8480-6 BMI: 18.5 Code: 52503-5 Heart Rate 1: 84 bpm Height: 5'11" Respiratory Rate: 20 bpm Temperature: 36 .7 (C) / 98.1 (F) Weight: 133 lbs 04/01/2015 Blood Pressure 1: 102/60 Code: 8480-6 BMI: 18.5 Code: 58166-1 Heart Rate 1: 64 bpm Height: 5'11" Respiratory Rate: 20 bpm Temperature: 36 .8 (C) / 98.2 (F) Weight: 133 lbs 01/13/2014 Blood Pressure 1: 124/78 Code: 8480-6 BMI: 19.8 Code: 72621-2 Heart Rate 1: 76 bpm Height: 5'11" Respiratory Rate: 20 bpm Temperature: 36 .8 (C) / 98.2 (F) Weight: 142 lbs 04/03/2012 Blood Pressure 1: 106/76 Code: 8480-6 BMI: 20.9 Code: 66424-9 Heart Rate 1: 84 bpm Height: 5'11" Respiratory Rate: 20 bpm Temperature: 36 .7 (C) / 98.0 (F) Weight: 150 lbs 12/20/2011 Blood Pressure 1: 116/60 Code: 8480-6 BMI: 20.1 Code: 18477-4 Heart Rate 1: 80 bpm Height: 5'11" Respiratory Rate: 20 bpm Temperature: 36 .4 (C) / 97.6 (F) Weight: 144 lbs 10/24/2011 Blood Pressure 1: 132/74 Code: 8480-6 BMI: 19.7 Code: 92785-0 Heart Rate 1: 96 bpm Height: 5'11" [...] 04/05/2015 follow up 04/01/2015 follow up 01/13/2014 [facility] fw from [facility] in November 2012 lab draw 07/19/2012 follow up 04/03/2012 S/P stent placement in LAD, changed effient to plavix hip pain 12/20/2011 dyskinesia or tremor 10/24/2011 follow up 03/13/2011 started on effient, zocor, and atenolol follow up 02/20/2011 [facility]/Dr Christian rojas follow up 02/23/2010 [facility], appt with Dr Bajwa 03/22/10 insomnia 01/12/2010 problems falling and staying asleep, takes nortriptyline Encounters Encounter Performer Location Codes Date ([id number]) OFFICE/OUTPATIENT VISIT EST Diagnosis: Essential tremor[ICD10: G25.0] Vonnie Mathews [facility] CPT-4: 02011 12/24/2019 ([id number]) NURSE/OUTPATIENT VISIT EST Diagnosis: Essential (primary) hypertension[ICD10: I10] Diagnosis: Mixed hyperlipidemia[ICD10: E78.2] Diagnosis: Encounter for screening for malignant neoplasm of prostate[ICD10: Z12.5] Vonnie COLMENARES [employer] CPT-4: 04867 09/30/2019 ([id number]) OFFICE/OUTPATIENT VISIT EST Diagnosis: Encounter for therapeutic drug level monitoring[ICD10: Z51.81] Diagnosis: Essential tremor[ICD10: G25.0] Verna Ramirez VONNIE Alvarez [employer] CPT-4: 08664 09/24/2019 ([id number]) OFFICE/OUTPATIENT VISIT EST Diagnosis: Noninfective gastroenteritis and colitis, unspecified[ICD10: K52.9] Diagnosis: Hemorrhage of anus and rectum[ICD10: K62.5] Vonnie Loza [employer] CPT-4: 99964 05/26/2019 ([id number]) OFFICE/OUTPATIENT VISIT EST Diagnosis: Other intervertebral disc degeneration, 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] Diagnosis: Other forms of dyspnea[ICD10: R06.09] Vonnie Loza [employer] CPT-4: 70196 03/17/2019 OFFICE/OUTPATIENT VISIT EST Diagnosis: Other intervertebral disc degeneration, 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] Diagnosis: Other symptoms and signs involving the musculoskeletal system[ICD10: R29.898] Vonnie MATHEWS [employer] [facility] CPT-4: 11431 02/18/2019 ([id number]) OFFICE/OUTPATIENT VISIT EST Diagnosis: Other allergic rhinitis[ICD10: J30.89] Akilah MATHEWS DO [facility] CPT-4: 67703 01/13/2019 ([id number]) NURSE/OUTPATIENT VISIT EST Diagnosis: Mixed hyperlipidemia[ICD10: E78.2] Diagnosis: Essential (primary) hypertension[ICD10: I10] Diagnosis: Encounter for screening for malignant neoplasm of prostate[ICD10: Z12.5] Diagnosis: Encounter for general adult medical examination with abnormal findings[ICD10: Z00.01] Diagnosis: Benign prostatic hyperplasia without lower urinary tract symptoms[ICD10: N40.0] Vonnie MATHEWS DO [facility] CPT-4: 99186 09/04/2018 ([id number]) OFFICE/OUTPATIENT VISIT EST Diagnosis: Otorrhea, left ear[ICD10: H92.12] Diagnosis: Impacted cerumen, right ear[ICD10: H61.21] Verna MATHEWS [employer] [facility] CPT-4: 03354 09/03/2018 ([id number]) OFFICE/OUTPATIENT VISIT EST Diagnosis: Other intervertebral disc degeneration, 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0] Diagnosis: Raynaud's syndrome without gangrene[ICD10: I73.00] Verna ASCENCIOLINE Denia SEBASTIANNDER [employer] [facility] CPT-4: 31484 04/25/2018 ([id number]) OFFICE/OUTPATIENT VISIT EST Diagnosis: Idiopathic urticaria[ICD10: L50.1] Diagnosis: Other urticaria[ICD10: L50.8] Vonnie COLMENARES Denia SEBASTIANNDMAXI [employer] [facility] CPT-4: 14032 11/16/2017 ([id number]) OFFICE/OUTPATIENT VISIT EST Diagnosis: Idiopathic urticaria[ICD10: L50.1] Diagnosis: Other urticaria[ICD10: L50.8] Diagnosis: Other forms of dyspnea[ICD10: R06.09] Vonnie RODGERS GilbertoKim REID [employer] [facility] CPT-4: 61405 11/06/2017 ([id number]) OFFICE/OUTPATIENT VISIT EST Diagnosis: Dyspnea, unspecified[ICD10: R06.00] Diagnosis: Abnormal weight loss[ICD10: R63.4] Vonnie LUCIA Denia SEBASTIANNDMAXI [employer] [facility] CPT-4: 10121 09/03/2017 ([id number]) OFFICE/OUTPATIENT VISIT EST Diagnosis: 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] Diagnosis: Anemia, unspecified[ICD10: D64.9] Vonnie Galarza Denia SEBASTIANNDMAXI [employer] [facility] CPT-4: 84275 07/31/2017 ([id number]) OFFICE/OUTPATIENT VISIT EST Diagnosis: FLU VACCINE[ICD10: Z23] Vonnei [facility] CPT-4: 26747 07/04/2017 ([id number]) OFFICE/OUTPATIENT VISIT EST Diagnosis: Mixed hyperlipidemia[ICD10: E78.2] Diagnosis: Essential tremor[ICD10: G25.0] Diagnosis: 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] Vonnie MATHEWS DO [facility] CPT-4: 44390 11/23/2016 ([id number]) OFFICE/OUTPATIENT VISIT EST Diagnosis: FLU VACCINE[ICD10: Z23] Vonnie EGRMAN DO [facility] CPT-4: 17516 06/28/2016 OFFICE/OUTPATIENT VISIT EST Diagnosis: Open bite of right hand, initial encounter[ICD10: S61.451A] Vonnie MATHEWS DO [facility] CPT-4: 28857 05/23/2016 ([id number]) OFFICE/OUTPATIENT VISIT EST Diagnosis: Encounter for general adult medical examination with abnormal findings[ICD10: Z00.01] Diagnosis: Mixed hyperlipidemia[ICD10: E78.2] Diagnosis: Essential tremor[ICD10: G25.0] Diagnosis: 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] Vonnie MATHEWS DO [facility] CPT-4: 48303 05/19/2016 ([id number]) OFFICE/OUTPATIENT VISIT EST Diagnosis: HYPERLIPIDEMIA NEC/NOS[ICD9: 272.4] Diagnosis: CAD[ICD9: 414.00] Diagnosis: TACHYCARDIA[ICD9: 785.0] Diagnosis: HYPERTENSION[ICD9: 401.9] Diagnosis: Routine medical exam[ICD9: V70.0] Vonnie Sebastianraheemmaxi LAIBRADYMARSHA SEBASTIANABRAZO [facility] [employer] CPT-4: 20245 04/05/2015 ([id number]) OFFICE/OUTPATIENT VISIT EST Diagnosis: HYPERTENSION[ICD9: 401.9] Diagnosis: HYPERLIPIDEMIA NEC/NOS[ICD9: 272.4] Diagnosis: CAD[ICD9: 414.00] Diagnosis: LUMB/LUMBOSAC DISC DEGEN[ICD9: 722.52] Vonnie Romuloiron GASPAR Denia SEBASTIANABRAZO [facility] [employer] [facility] CPT-4: 22579 04/01/2015 ([id number]) OFFICE/OUTPATIENT VISIT EST Diagnosis: CHEST PAIN NOS[ICD9: 786.50] Diagnosis: PAIN IN THORACIC SPINE[ICD9: 724.1] Diagnosis: HYPERTENSION[ICD9: 401.9] Diagnosis: GERD[ICD9: 530.81] Vonnie Reid SEBASTIANABRAZO [facility] [employer] [facility] CPT-4: 96225 01/13/2014 ([id number]) OFFICE/OUTPATIENT VISIT EST Diagnosis: CAD[ICD9: 414.00] Diagnosis: HYPERLIPIDEMIA NEC/NOS[ICD9: 272.4] Vonnie Romuloiron ANNA Denia SEBASTIANABRAZO [facility] [employer] [facility] CPT-4: 62954 07/19/2012 ([id number]) OFFICE/OUTPATIENT VISIT EST Diagnosis: CAD[ICD9: 414.00] Diagnosis: INSOMNIA NOS[ICD9: 780.52] Vonnie Romuloiron Loza OR YULISA [employer] [facility] CPT-4: 66095 04/03/2012 ([id number]) OFFICE/OUTPATIENT VISIT EST Diagnosis: CHEST PAIN NOS[ICD9: 786.50] Diagnosis: CAD[ICD9: 414.00] Vonnie Romuloraheemmaxi LAIVONNIE GilbertoKim ROMULOND [employer] [facility] CPT-4: 33501 03/22/2012 ([id number]) OFFICE/OUTPATIENT VISIT EST Diagnosis: PROSTATITIS[ICD9: 601.9] Diagnosis: TREMOR NEC[ICD9: 333.1] Vonnie Loza [facility] CPT-4: 45944 12/20/2011 OFFICE/OUTPATIENT VISIT EST Diagnosis: TREMOR NEC[ICD9: 333.1] Diagnosis: TACHYCARDIA[ICD9: 785.0] Diagnosis: HYPERTENSION[ICD9: 401.9] Vonnie SEBASTIAN [facility] CPT-4: 75649 10/24/2011 OFFICE/OUTPATIENT VISIT EST Vonnie SEBASTIAN [facility] CPT- 4: 36027 03/13/2011 ([id number]) OFFICE/OUTPATIENT VISIT EST Vonnie GASPAR SKim [facility] CPT-4: 04322 02/20/2011 ([id number]) OFFICE/OUTPATIENT VISIT, EST Vonnie Loza [facility] CPT-4: 80322 02/23/2010 ([id number]) OFFICE/OUTPATIENT VISIT, EST Vonnie NELSON SKim [facility] [employer] CPT-4: 17946 01/12/2010 Plan of Care Planned Activity Notes Codes Status Date Visit Diagnosis Plan: Essential tremor Discussion: Sta ble on clonazepam Fwup in 3mos with fasting lab ICD-9 : 333.1 ICD-10 : G25.0 12/24/2019 Appointment: Vonnie Mathews WPtel: [address] [place] [address] US TELEMEDICINE 12/24/2019 Patient Education: Cathryn HFA- [employer] Coupon [phone] [email or web address] Completed 12/24/2019 Appointment: Vonnie Mathews WPtel: [facility] US LAB 09/30/2019 Appointment: Verna Ramirez [address] RESCHEDULED 09/25/2019 Visit Diagnosis Plan: Encounter for therapeutic drug l evel monitoring Discussion: UDS and contract completed today. ICD-9 : V58.83 ICD-10 : Z51.81 09/24/2019 Visit Diagnosis Plan: Essential tremor Discussion: sta ble on clonazepam. educated patient about purchasing a large, heavy pen that will allow him to improve his writing. instructed him that pens can be purchased on [employer]. ICD-9 : 333.1 ICD-10 : G25.0 09/24/2019 Appointment: Verna Ramirez [address] [id number] MEDICATION REVIEW 09/24/2019 Visit Diagnosis Plan: Hemorrhage of anus and rectum Di scussion: Update colonoscopy ICD-9 : 569.3 ICD-10 : K62.5 05/26/2019 Visit Diagnosis Plan: Noninfective gastroenteritis and colitis, unspecified Discussion: Flagyl Sixes diet Update colonoscopy ICD-9 : 558.9 ICD-10 : K52.9 05/26/2019 Appointment: Vonnie Mathews WPtel: [phone] [facility] US record request faxed 05/23; LM with medical records 05/26/19 Hospital Follow Up 05/26/2019 Care Plan: Referral Order SNOMED-CT : 30 [id number] Pending 05/26/2019 Visit Diagnosis Plan: Other intervertebral disc degene ration, lumbar region Discussion: Increase lyrica to 150mg po q HS Continue stretches from PT [facility] Fwup after that appointment ICD-9 : 722.52 ICD-10 : M51.36 03/17/2019 Appointment: Vonnie Mathews [facility]el[phone] [facility] [facility] FOLLOW UP 03/17/2019 Visit Diagnosis Plan: [...] : M51.36 02/18/2019 Appointment: Vonnie Mathews WPtel: [address] [place] [address] FOLLOW UP 02/18/2019 Appointment: Vonnie Mathews WPtel: [address] [place] [address] US CANCELED 02/18/2019 Visit Diagnosis Plan: Other [...] : J30.89 01/13/2019 Appointment: Akilah Lopez [address] [place] [address] US Due for annual wellness ACUTE ILLNESS 01/14/20 Appointment: Vonnie Mathews WPtel: [address] [place] [address] US LAB 09/04/2018 Visit Diagnosis Plan: Otorrhea, [...] ICD-10 : H61.21 09/03/2018 Appointment: Verna Ramirez [address] ACUTE ILLNESS 09/03/2018 Visit Diagnosis Plan: Primary [...] G25.0 08/26/2018 Appointment: Vonnie Mathews WPtel: [phone] [facility] US FOLLOW UP 08/26/2018 Visit Diagnosis Plan: [...] : 625.9 ICD-10 : R10.2 05/15/2018 Appointment: eVrna Ramirez [address] [place], [place] [id number] ACUTE ILLNESS 05/15/2018 Patient Education: Patient Medication Summary Completed 05/15/2018 Care Plan: US EXAM PELVIC COMPLETE scrotal LOINC : 04354-8 Pending 05/15/2018 Visit Diagnosis Plan: Other intervertebral [...] ICD-10 : J01.90 04/25/2018 Appointment: Verna Ramirez [address] [place] [address] MEDICATION REVIEW 04/25/2018 Patient Education: Patient Medication Summary Completed 04/25/2018 Appointment: Vonnie Mathews WPtel: [address] [place], [place] [id number] 11/16/2017 Patient Education: Patient Medication Summary Completed [...] : L50.1 11/06/2017 Appointment: Vonnie Mathews WPtel: [address] [place], [place] [id number] FOLLOW UP 11/06/2017 Patient Education: Patient Medication [...] 786.09 ICD-10 : R06.00 09/03/2017 Appointment: Vonnie Mathews: [address] [place], [place] [id number] US FOLLOW UP 09/03/2017 Patient Education: Patient Medication Summary Completed 09/03/2017 Visit Diagnosis Plan: Essential tremor Discussion: Sta ble on Primidone ICD-9 : 333.1 ICD-10 : G25.0 08/21/2017 Visit Diagnosis Plan: Atherosclerotic he art disease of hughes coronary artery without angina pectoris Discussion: Sees [...] 272.4 ICD-10 : E78.2 08/21/2017 Appointment: Vonnie Mathews WPtel: [address] [place], [place] [phone] US FOLLOW UP 08/21/2017 Patient Education: Patient Medication Summary Completed 08/21/2017 Appointment: Vonnie Mathews WPtel: [address] [place], [place] [phone] US LAB 07/31/2017 Patient Education: Patient Medication Summary Completed 07/31/2017 Appointment: Vonnie Mathews WPtel: [address] [place], [place] [phone] US INJECTION 07/04/2017 Patient Education: Patient Medication Summary Completed 07/04/2017 Appointment: Vonnie Mathews WPtel: [address] [place], [place] [phone] US LAB 02/26/2017 Patient Education: Patient Medication Summary Completed 02/26/2017 Visit Diagnosis Plan: Essential tremor Discussion: Con tinue clonazepam at 1mg q AM and primidone 50mg q HS Follow Up: 3 months ICD-9 : 333.1 ICD-10 : G25.0 02/13/2017 Appointment: Vonnie Mathews WPtel: [address] [place] [address] 02/08 confirmed~sl FOLLOW UP 02/13/2017 Patient Education: Patient Medication Summary Completed 02/13/2017 Appointment: Vonnie Mathews WPtel: [address] [place] [address] US RESCHEDULED 01/23/2017 Visit Diagnosis Plan: Other intervertebral disc degene ration, lumbar region Discussion: DC oxycodone Tramadol 50mg 1-2 po TID prn pain Follow Up: 2 months ICD-9 : 722.52 ICD-10 : M51.36 11/23/2016 Visit Diagnosis Plan: Essential tremor Discussion: Inc rease clonazepam to 1mg po BID Discussed sinemet ICD-9 : 333.1 ICD-10 : G25.0 11/23/2016 Appointment: Vonnie Mathews WPtel: [address] [place] [address] 11/22 confirmed~sl MEDICATION REVIEW 11/23/2016 Patient Education: Patient Medication Summary Completed 11/23/2016 Patient Education: [facility][NOTE 3] - Saving [employer] - Clonazepam - 18-64 - Dynamic Portal ID Completed 11/23/2016 Appointment: Vonnie Mathews WPtel: [address] [place] [address] US INJECTION 06/28/2016 Patient Education: Patient Medication Summary Completed 06/28/2016 Referral: Fernando Day WPtel: #1 [facility] Shilpa Lopez [id number] [place] [id number] per Maribeth, the patient is sched [...] if worsening 05/23/2016 Appointment: Vonnie Mathews WPtel: [address] [place] [address] ER Follow UP 05/23/2016 Patient Education: Patient Medication Summary Completed 05/23/2016 Appointment: Vonnie Mathews WPtel: [address] [place], [place] [phone] LAB 05/19/2016 Patient Education: Patient Medication Summary Completed 05/19/2016 Visit Plan: Change coreg to 3.125mg BID Trial of low dose clonazepam 0.5mg BID for tremors Fwup with Dr. Ramsey as scheduled Return for fasting lab--CBC, CMP, TSH, free T4, Lipids, PSA, B12 Proceed with Colonoscopy 05/10/2016 Appointment: Vonnie Mathews WPtel: [address] [place] [address] 05/09 confirmed~sl Annual Well Visit 05/10/2016 Patient Education: Patient Medication Summary Completed 05/10/2016 Care Plan: Referral Order SNOMED-CT : 30 [id number] Pending 05/10/2016 Appointment: Vonnie Mathews WPtel: [address] [place] [address] US Rescheduled for 05/10/16 at 2PM~lb RESCHEDULED 04/26/2016 Ref[facility]: [facility] [address] Referral Initiated 04/29/2015 Appointment: Vonnie Mathews WPtel: [address] [place], [place] [phone] US LAB 04/05/2015 Patient Education: Patient Medication Summary Completed 04/05/2015 Visit Plan: Return in AM for fasting lab --CMP, lipids, CBC, TSH, PSA Change hydrocodone to oxycodone 7.5/325mg 1-2 po TID Schedule with cardiology Needs colonoscopy once cardiology evaluation complete Will need to restart chol meds after lab Recheck 1mo on pain meds 04/01/2015 Appointment: Vonnie Mathews WPtel: [address] [place] [address] 03/31 confirmed -mf PHYSICAL 04/01/2015 Patient Education: Patient Medication Summary Completed 04/01/2015 Appointment: Vonnie Mathews WPtel: [address] [place] [address] Annual Well Visit 09/23/2014 Visit Plan: Continue protonix Pt has fwu p with Card next month Rec chiropracter or PT for ribs/thoracics being out and could be contributing to chest pain 01/13/2014 Appointment: Vonnie Mathews WPtel: [address] [place] [address] FOLLOW UP 01/13/2014 Patient Education: Patient Medication Summary Completed 01/13/2014 Appointment: Ariella Mcnally WPtel: [address] [place] [address] FOLLOW UP 12/12/2013 Appointment: Malika Cárdenas WPtel: [address] [place] [address] PHYSICAL 12/12/2013 Appointment: Vonnie Mathews WPtel: [address] [place] [address] ACUTE ILLNESS 02/20/2013 Appointment: Vonnie Mathews WPtel: [address] [place], [place] [id number] [place] LAB 07/19/2012 Patient Education: Patient Medication Summary Completed 07/19/2012 Appointment: Vonnie Mathews WPtel: [address] [place] [address] [place] FOLLOW UP 04/03/2012 Patient Education: Patient Medication Summary Completed 04/03/2012 Appointment: Vonnie Mathews WPtel: [address] [place] [address] ACUTE ILLNESS 03/22/2012 Patient Education: Patient Medication Summary Completed 03/22/2012 Appointment: Vonnie Mathews WPtel: [address] [place] [place] [address] FOLLOW UP 12/26/2011 Visit Plan: Add Cipro Continue current m eds 12/20/2011 Appointment: Vonnie Mathews WPtel: [address] [place] [address] ACUTE ILLNESS 12/20/2011 Patient Education: Patient Medication Summary Completed 12/20/2011 Visit Plan: Change neurontin to Cymbalta 30mg for 1wk then 60mg QD Add Propranolol for tremor 10/24/2011 Appointment: Vonnie Mathews WPtel: [address] [place] [address] ACUTE ILLNESS 10/24/2011 Appointment: Vonnie Mathews WPtel: [address] [place] [address] ACUTE ILLNESS 10/24/2011 Patient Education: Patient Medication Summary Completed 10/24/2011 Visit Plan: Continue current meds and fw up with Card as scheduled 03/13/2011 Appointment: Vonnie Mathews WPtel: [address] [place], [place] [id number] FOLLOW UP 03/13/2011 Patient Education: Patient Medication Summary Completed 03/13/2011 Visit Plan: Will obtain all records and lab from [facility] Discussed will likely need heart cath which pt states that Card did talk to him about in the hospital 02/20/2011 Appointment: Vonnie Mathews WPtel: [address] [place] [address] ACUTE ILLNESS 02/20/2011 Patient Education: Patient Medication Summary Completed 02/20/2011 Visit Plan: Cont Pepcid and Prilosec See Card for cardiac cath. 02/23/2010 Appointment: Vonnie Mathews WPtel: [address] [place], [place] [id number] [place] FOLLOW UP 02/23/2010 Patient Education: Patient Medication Summary Completed 02/23/2010 Visit Plan: Increase Pamelor to 75mg qhs Increase Hydrocodone to 10/325mg 1-2 po q6 prn 01/12/2010 Appointment: Vonnie Mathews WPtel: [phone] [id number] ACUTE ILLNESS 01/12/2010 Patient Education: Patient Medication Summary Completed 01/12/2010 Referral: Iván Pardo WPtel: [facility] [address] [facility], [place] [address] [place], [place] [id number] Referral Initiated Referral: Fernando Day WPtel: [id number] Referral Completed Referral: Fernando Day WPtel: [id number] Referral Appointment Requested Instructions Comment . Finish [...]
--- OUTSIDE RECORDS SUMMARY | 2020-02-10 08:09 | XMS REPORT | CCD ---
Author Author Nash Mathews D.O. Organization [facility] Address [address] [place] [address] Phone Care Team Providers Care Fire Chief'S Aide Name Role Phone Vonnie Mathews D.O., PP Unavailable CCM Unavailable Summary Purpose Interface Exchange Insurance Providers Payer name Policy type / Coverage type Covered libertarian ID Effective Begin Date Effective End Date [employer] MEDICARE Medicare Part B [id number] 2019 Unknown Family History Family History data not found Social History Social History Element Codes Description Effective Dates Marital status Unknown 10/24/[address]: 780743380 Nonsmoker 03/29/2011 Allergies, Adverse Reactions, Alerts Substance [...] R63.4 08/21/2017 Active 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: [...] Start Date Stop Date Status Fill Instructions Zyrtec 10 mg capsule RxNorm: 8216609 1 Capsule(s) Oral QD 0 No Stop Date Active ProAir HFA 90 mcg/actuation aerosol inhaler RxNorm: 207224 INHALE 2 PUFFS BY MOUTH FOUR TIMES DAILY NEEDED 12/24/2019 02/11/2020 Active Patient requests 90 days supply ProAir HFA 90 mcg/actuation aerosol inhaler RxNorm: 036869 2 Puff(s) Inhalation four times a day as needed 12/24/2019 12/23/2019 Inactive clonazepam 1 mg tablet RxNorm: 070637 TAKE 1 TABLET BY MOUTH EV SUSAN MORNING 12/19/2019 01/17/2020 Active clonazepam 1 mg tablet RxNorm: 601452 TAKE 1 TABLET BY MOUTH EV SUSAN MORNING 11/17/2019 12/16/2019 Inactive Tamiflu 75 mg capsule RxNorm: 812662 1 Capsule(s) Oral QD 11/03/2019 11/12/2019 Inactive Tamiflu 75 mg capsule RxNorm: 503388 1 Capsule(s) Oral QD 11/03/2019 11/02/2019 Inactive clonazepam 1 mg tablet RxNorm: 695439 TAKE 1 TABLET BY MOUTH EV SUSAN MORNING 10/16/2019 11/13/2019 Inactive pravastatin 20 mg tablet RxNorm: 458105 1 Tablet(s) Oral QD 020 04/06/2020 Active Singulair 10 mg tablet RxNorm: 317420 TAKE 1 TABLET BY MOUTH EV SUSAN DAY 10/10/2019 12/24/2019 Inactive Lyrica 75 mg capsule RxNorm: 653756 1 Capsule(s) Oral every nig ht at bedtime 10/09/2019 01/07/2020 Active clonazepam 1 mg tablet RxNorm: 485306 TAKE 1 TABLET BY MOUTH EV SUSAN AM 09/23/2019 10/15/2019 Inactive clonazepam 1 mg tablet RxNorm: 036879 TAKE 1 TABLET BY MOUTH EV SUSAN AM 08/21/2019 09/22/2019 Inactive Singulair 10 mg tablet RxNorm: 309757 TABLET(S) 1 TABLET(S) PO QD 1 10/09/2019 Inactive Flagyl 500 mg tablet RxNorm: 664268 1 Tablet(s) PO TID 05/26/2019 Inactive clonazepam 1 mg tablet RxNorm: 029937 TAKE 1 TABLET BY MOUTH EV SUSAN MORNING 05/23/2019 06/21/2019 Inactive pravastatin 20 mg tablet RxNorm: 931341 1 Tablet(s) PO QD 04/14/2019 10/09/2019 Inactive Needs updated fasting labs Singulair 10 mg tablet RxNorm: 875728 Tablet(s) 1 TABLET(S) PO QD 0 04/14/2019 07/12/2019 Inactive clonazepam 1 mg tablet RxNorm: 464677 1 Tablet(s) PO QAM 02/21/2019 0 05/23/2019 Inactive Bevespi Aerosphere 9 mcg-4.8 mcg HFA aerosol inhaler RxNorm: 2243367 2 Puff(s) INH BID 02/19/2019 12/23/2019 Inactive ProAir HFA 90 mcg/actuation aerosol inhaler RxNorm: 411738 2 Puff(s) INH Q4H as needed 02/19/2019 09/24/2019 Inactive metoprolol tartrate 25 mg tablet RxNorm: 945288 1/2 Tablet(s) PO BI D 02/18/2019 05/18/2019 Inactive pravastatin 20 mg tablet RxNorm: 188652 1 Tablet(s) PO QD Needs updated fasting labs 01/13/2019 04/14/2019 Inactive Needs updated fa sting labs Singulair 10 mg tablet RxNorm: 322870 Tablet(s) 1 TABLET(S) PO QD 0 01/13/2019 04/12/2019 Inactive Plavix 75 mg tablet RxNorm: 331307 Tablet(s) 1 TABLET(S) PO QD 04/201906/20/2019 Inactive [SAVINGS FOR NON-COVERED SHANDA -- BIN:555907, PCN: ASPROD1, Group: XXXXX, ID# [id number], Questions: . THIS IS NOT INSURANCE.] Singulair 10 mg tablet RxNorm: 896964 1 TABLET(S) PO QD 10/29/2018 Inactive primidone 50 mg tablet RxNorm: 440473 2 TABLET(S) PO BI D TAKE 2 TABLETS BY MOUTH EVERY NIGHT AT BEDTIME 10/07/2018 01/12/2019 Inactive Patient requests 90 days supply pravastatin 20 mg tablet RxNorm: 032511 1 TABLET(S) PO QD 09/23/2018 01/12/2019 Inactive clonazepam 1 mg tablet RxNorm: 433481 1 Tablet(s) PO QAM 09/19/2018 0 12/17/2018 Inactive primidone 50 mg tablet RxNorm: 692049 TABLET(S) TAKE 2 TABLETS BY MOUTH EVERY NIGHT AT BEDTIME 09/18/2018 01/12/2019 Inactive ciprofloxacin 0.2 % ear drops in a dropperette RxNorm: 64287 6 2 Drop(s) left otic (ear) BID 09/03/2018 09/09/2018 Inactive primidone 50 mg tablet RxNorm: 234967 2 Tablet(s) PO BI D TAKE 2 TABLETS BY MOUTH EVERY NIGHT AT BEDTIME 08/26/2018 10/06/2018 Inactive Ambien 5 mg tablet RxNorm: 610267 TAKE 1 TABLET BY MOUTH EVERY NIGHT AT BEDTIME 08/05/2018 09/03/2018 Inactive Singulair 10 mg tablet RxNorm: 103357 1 TABLET(S) PO QD 07/23/2018 Inactive clonazepam 1 mg tablet RxNorm: 746086 TAKE 1 TABLET BY MOUTH EV SUSAN MORNING 07/23/2018 08/21/2018 Inactive Plavix 75 mg tablet RxNorm: 560984 1 TABLET(S) PO QD 07/04/201812/22 Inactive [SAVINGS FOR NON-COVERED DRUGS -- BIN:00 3585, PCN: ASPROD1, Group: XXXXX, ID# [id number], Questions: . THIS IS NOT INSURANCE.] clonazepam 1 mg tablet RxNorm: 482706 TAKE 1 TABLET BY MOUTH EV SUSAN MORNING 06/25/2018 07/23/2018 Inactive clonazepam 1 mg tablet RxNorm: 751813 TAKE 1 TABLET BY MOUTH EV SUSAN MORNING 05/23/2018 06/21/2018 Inactive primidone 50 mg tablet RxNorm: 518193 Tablet(s) TAKE 2 TABLETS BY MOUTH EVERY NIGHT AT BEDTIME 05/16/2018 08/25/2018 Inactive oxycodone-acetaminophen 7.5 mg-325 mg tablet RxNorm: 1048415 1-2 Tablet(s) PO TID as needed 04/25/2018 05/24/2018 Inactive Singulair 10 mg tablet RxNorm: 016275 1 Tablet(s) PO QD 04/25/2018 Inactive Medrol (Jose) 4 mg tablets in a dose pack RxNorm: 130707 Tablet(s) PO take as directed 04/25/2018 09/02/2018 Inactive clonazepam 1 mg tablet RxNorm: 074987 TAKE 1 TABLET BY MOUTH EV SUSAN MORNING 04/24/2018 05/22/2018 Inactive Plavix 75 mg tablet RxNorm: 899689 1 TABLET(S) PO QD 04/04/201807/02 Inactive [SAVINGS FOR NON-COVERED DRUGS -- BIN:00 3585, PCN: ASPROD1, Group: XXXXX, ID# [id number], Questions: . THIS IS NOT INSURANCE.] pravastatin 20 mg tablet RxNorm: 086314 1 Tablet(s) PO QD 03/21/2018 09/16/2018 Inactive ProAir HFA 90 mcg/actuation aerosol inhaler RxNorm: 231571 2 Puff(s) INH Q4H as needed 03/18/2018 03/17/2018 Inactive tamsulosin 0.4 mg capsule RxNorm: 021661 1 CAPSULE(S) PO QD 018 01/12/2019 Inactive clonazepam 1 mg tablet RxNorm: 019283 1 Tablet(s) PO QAM 02/25/2018 0 04/25/2018 Inactive tamsulosin 0.4 mg capsule RxNorm: 377890 1 Capsule(s) PO QD 018 03/13/2018 Inactive tamsulosin 0.4 mg capsule RxNorm: 957505 1 Capsule(s) PO QD 018 02/03/2018 Inactive tamsulosin 0.4 mg capsule RxNorm: 359034 1 Capsule(s) PO QD 018 02/12/2018 Inactive Ambien 5 mg tablet RxNorm: 386204 Tablet(s) TAKE 1 TAB LET BY MOUTH EVERY NIGHT AT BEDTIME 01/24/2018 08/05/2018 Inactive primidone 50 mg tablet RxNorm: 978125 Tablet(s) TAKE 2 TABLETS BY MOUTH EVERY NIGHT AT BEDTIME 01/18/2018 05/16/2018 Inactive cyclobenzaprine 10 mg tablet RxNorm: 472074 1 Tablet(s) PO TID as needed for muscle spasm 01/11/2018 02/09/2018 Inactive [SAVINGS FOR NON -COVERED DRUGS -- BIN:635299, PCN: ASPROD1, Group: XXXXX, ID# [id number], Questions: . THIS IS NOT INSURANCE.] clonazepam 1 mg tablet RxNorm: 429576 1 Tablet(s) PO QAM 12/24/2017 0 02/21/2018 Inactive prednisone 20 mg tablet RxNorm: 583375 1 Tablet(s) PO QD 11/06/2017 0 11/10/2017 Inactive EpiPen 2-Jose 0.3 mg/0.3 mL injection, auto-injector RxNorm: 582879 1 Unit Dose IM as needed 11/06/2017 09/24/2019 Inactive ProAir HFA 90 mcg/actuation aerosol inhaler RxNorm: 246549 2 Puff(s) INH Q4H as needed 10/30/2017 03/17/2018 Inactive primidone 50 mg tablet RxNorm: 433183 TAKE 2 TABLETS BY MOUTH EVERY NIGHT AT BEDTIME 10/15/2017 01/17/2018 Inactive Plavix 75 mg tablet RxNorm: 858796 1 Tablet(s) PO QD 10/01/201703/29 Inactive [SAVINGS FOR NON-COVERED DRUGS -- BIN:00 4445, PCN: ASPROD1, Group: XXXXX, ID# [id number], Questions: . THIS IS NOT INSURANCE.] clonazepam 1 mg tablet RxNorm: 557026 1 Tablet(s) PO QAM 09/19/2017 0 12/16/2017 Inactive primidone 50 mg tablet RxNorm: 423346 2 Tablet(s) PO QHS 08/29/2017 0 01/18/2018 Inactive oxycodone-acetaminophen 7.5 mg-325 mg tablet RxNorm: 8351840 1-2 Tablet(s) PO TID as needed 08/22/2017 09/19/2017 Inactive pravastatin 20 mg tablet RxNorm: 213315 1 Tablet(s) PO QD 08/21/2017 03/21/2018 Inactive carvedilol 3.125 mg tablet RxNorm: 079740 1 Tablet(s) P O BID to replace 6.25mg dose 08/21/2017 09/02/2017 Inactive primidone 50 mg tablet RxNorm: 845712 TAKE 2 TABLETS BY MOUTH EVERY NIGHT AT BEDTIME 06/18/2017 08/28/2017 Inactive clonazepam 1 mg tablet RxNorm: 826814 1 Tablet(s) PO QAM 06/04/2017 1 11/02/2016 Inactive Plavix 75 mg tablet RxNorm: 414079 1 Tablet(s) PO QD 04/10/201710/01 Inactive [SAVINGS FOR NON-COVERED DRUGS -- BIN:00 4275, PCN: ASPROD1, Group: XXXXX, ID# [id number], Questions: . THIS IS NOT INSURANCE.] pravastatin 20 mg tablet RxNorm: 350552 1 Tablet(s) PO QD 02/26/2017 08/24/2017 Inactive carvedilol 3.125 mg tablet RxNorm: 853687 1 Tablet(s) P O BID to replace 6.25mg dose 02/26/2017 08/21/2017 Inactive Ultram 50 mg tablet RxNorm: 375565 TAKE 1 TO 2 TABLETS BY MOUTH THREE TIMES DAILY NEEDED FOR PAIN 02/26/2017 03/07/2017 Inactive pravastatin 20 mg tablet RxNorm: 209236 1 Tablet(s) PO QD 02/26/2017 08/21/2017 Inactive carvedilol 3.125 mg tablet RxNorm: 899276 1 Tablet(s) P O BID to replace 6.25mg dose 02/26/2017 08/20/2017 Inactive clonazepam 0.5 mg tablet RxNorm: 260555 1 Tablet(s) PO QAM 02/14/20 17 02/13/2017 Inactive primidone 50 mg tablet RxNorm: 556131 1 Tablet(s) PO QHS 02/13/2017 0 05/01/2017 Inactive clonazepam 1 mg tablet RxNorm: 498147 1 Tablet(s) PO QAM 02/13/2017 0 05/13/2017 Inactive primidone 50 mg tablet RxNorm: 899589 1/2 Tablet(s) PO QD for 7 days then increase to 1 tablet at bedtime 01/09/2017 02/12/2017 Inactive pravastatin 20 mg tablet RxNorm: 957821 Tablet(s) 1 TABLET(S) PO QD 11/29/2016 02/25/2017 Inactive clonazepam 1 mg tablet RxNorm: 491532 1 Tablet(s) PO BID replac es 0.5mg dose 11/23/2016 01/08/2017 Inactive pravastatin 20 mg tablet RxNorm: 759434 1 TABLET(S) PO QD 11/17/2016 11/28/2016 Inactive Ambien 5 mg tablet RxNorm: 231374 TAKE 1 TABLET BY MOUTH EVERY NIGHT AT BEDTIME 11/17/2016 12/14/2016 Inactive clonazepam 0.5 mg tablet RxNorm: 667360 TAKE 1 TABLET BY MOUTH TWICE DAILY 11/17/2016 11/22/2016 Inactive Plavix 75 mg tablet RxNorm: 160417 1 Tablet(s) PO QD 11/06/201604/09 Inactive [SAVINGS FOR NON-COVERED DRUGS -- BIN:00 3585, PCN: ASPROD1, Group: XXXXX, ID# [id number], Questions: . THIS IS NOT INSURANCE.] Plavix 75 mg tablet RxNorm: 941129 1 Tablet(s) PO QD 08/28/201611/05 Inactive [SAVINGS FOR NON-COVERED DRUGS -- BIN:00 3585, PCN: ASPROD1, Group: XXXXX, ID# [id number], Questions: . THIS IS NOT INSURANCE.] Lidoderm 5 % topical patch RxNorm: 1947469 Application T OP 2 patches for 12hrs then off for 12hrs 08/28/2016 08/27/2016 Inactive clonazepam 0.5 mg tablet RxNorm: 473738 1 Tablet(s) PO BID 08/07/2011/22/2016 Inactive pravastatin 20 mg tablet RxNorm: 186509 1 Tablet(s) PO QD 08/07/2016 11/04/2016 Inactive cyclobenzaprine 10 mg tablet RxNorm: 859562 1 Tablet(s) PO TID as needed for muscle spasm 08/07/2016 09/05/2016 Inactive [SAVINGS FOR NON -COVERED DRUGS -- BIN:598561, PCN: ASPROD1, Group: XXXXX, ID# [id number], Questions: . THIS IS NOT INSURANCE.] Plavix 75 mg tablet RxNorm: 306422 1 Tablet(s) PO QD 08/07/201608/27 Inactive [SAVINGS FOR NON-COVERED DRUGS -- BIN:00 3585, PCN: ASPROD1, Group: XXXXX, ID# [id number], Questions: . THIS IS NOT INSURANCE.] carvedilol 3.125 mg tablet RxNorm: 257088 1 Tablet(s) P O BID to replace 6.25mg dose 08/07/2016 02/02/2017 Inactive clonazepam 0.5 mg tablet RxNorm: 234885 1 Tablet(s) PO BID 07/04/20 16 08/07/2016 Inactive Plavix 75 mg tablet RxNorm: 862211 1 TABLET(S) PO QD 06/20/201608/06 Inactive [SAVINGS FOR NON-COVERED DRUGS -- BIN:00 3585, PCN: ASPROD1, Group: XXXXX, ID# [id number], Questions: . THIS IS NOT INSURANCE.] clonazepam 0.5 mg tablet RxNorm: 369567 1 Tablet(s) PO BID 06/09/20 16 07/03/2016 Inactive pravastatin 20 mg tablet RxNorm: 518423 1 Tablet(s) PO QD 05/23/2016 08/06/2016 Inactive pravastatin 20 mg tablet RxNorm: 729048 1 Tablet(s) PO QD 05/23/2016 05/22/2016 Inactive carvedilol 3.125 mg tablet RxNorm: 470167 1 Tablet(s) P O BID to replace 6.25mg dose 05/10/2016 08/06/2016 Inactive carvedilol 3.125 mg tablet RxNorm: 376092 1 Tablet(s) P O BID to replace 6.25mg dose 05/10/2016 05/09/2016 Inactive clonazepam 0.5 mg tablet RxNorm: 114613 1 Tablet(s) PO BID 05/10/20 16 06/08/2016 Inactive carvedilol 6.25 mg tablet RxNorm: 048806 1 Tablet(s) PO QD 05/10/20 16 05/10/2016 Inactive simvastatin 40 mg tablet RxNorm: 439222 1 TABLET(S) PO QD 04/10/2016 05/09/2016 Inactive Medrol (Jose) 4 mg tablets in a dose pack RxNorm: 831778 Tablet(s) PO As Directed 01/13/2016 05/09/2016 Inactive cyclobenzaprine 10 mg tablet RxNorm: 100640 1 TABLET(S) PO TID NEEDED FOR SPASM 01/11/2016 03/10/2016 Inactive [SAVINGS FOR NON -COVERED DRUGS -- BIN:167878, PCN: ASPROD1, Group: XXXXX, ID# [id number], Questions: . THIS IS NOT INSURANCE.] Plavix 75 mg tablet RxNorm: 347033 1 Tablet(s) PO QD 12/30/201506/19 Inactive [SAVINGS FOR NON-COVERED DRUGS -- BIN:00 3585, PCN: ASPROD1, Group: XXXXX, ID# [id number], Questions: . THIS IS NOT INSURANCE.] Ambien 5 mg tablet RxNorm: 967535 TAKE 1 TABLET BY MOUTH EVERY DAY AT BEDTIME 11/15/2015 11/17/2016 Inactive simvastatin 40 mg tablet RxNorm: 323934 1 Tablet(s) PO QD 10/11/2015 01/12/2019 Inactive simvastatin 40 mg tablet RxNorm: 906050 1 Tablet(s) PO QD 10/08/2015 10/10/2015 Inactive Ambien 5 mg tablet RxNorm: 210283 TAKE 1 TABLET BY MOUTH EVERY NIGHT AT BEDTIME 07/27/2015 11/15/2015 Inactive Plavix 75 mg tablet RxNorm: 765342 1 Tablet(s) PO QD 06/28/201512/29 Inactive [SAVINGS FOR NON-COVERED DRUGS -- BIN:00 3585, PCN: ASPROD1, Group: XXXXX, ID# [id number], Questions: . THIS IS NOT INSURANCE.] Coreg 6.25 mg tablet RxNorm: 563540 1 TABLET(S) PO BID 04/19/2015 Inactive [SAVINGS FOR NON-COVERED DRUGS -- BIN:00 3585, PCN: ASPROD1, Group: XXXXX, ID# XXXXXXX, Questions: . THIS IS NOT INSURANCE.] simvastatin 40 mg tablet RxNorm: 523742 1 Tablet(s) PO QD 04/05/2015 04/04/2015 Inactive simvastatin 40 mg tablet RxNorm: 656252 1 Tablet(s) PO QD 04/05/2015 10/11/2015 Inactive Plavix 75 mg tablet RxNorm: 165854 1 TABLET(S) PO QD 03/22/201504/20 Inactive [SAVINGS FOR NON-COVERED DRUGS -- BIN:00 3585, PCN: ASPROD1, Group: XXXXX, ID# [id number], Questions: . THIS IS NOT INSURANCE.] Plavix 75 mg tablet RxNorm: 136118 1 Tablet(s) PO QD 03/22/201506/28 Inactive [SAVINGS FOR NON-COVERED DRUGS -- BIN:00 3585, PCN: ASPROD1, Group: XXXXX, ID# XXXXXXX, Questions: . THIS IS NOT INSURANCE.] Ambien 5 mg tablet RxNorm: 455413 1 Tablet(s) PO QHS 12/17/201407/28 Inactive [SAVINGS FOR NON-COVERED DRUGS -- BIN:00 3585, PCN: ASPROD1, Group: XXXXX, ID# XXXXXXX, Questions: . THIS IS NOT INSURANCE.] Coreg 6.25 mg tablet RxNorm: 597477 1 Tablet(s) PO BID 12/17/2014 Inactive [SAVINGS FOR NON-COVERED DRUGS -- BIN:00 3585, PCN: ASPROD1, Group: XXXXX, ID# XXXXXXX, Questions: . THIS IS NOT INSURANCE.] Plavix 75 mg tablet RxNorm: 533856 1 Tablet(s) PO QD 12/17/201403/16 Inactive [SAVINGS FOR NON-COVERED DRUGS -- BIN:00 3585, PCN: ASPROD1, Group: XXXXX, ID# XXXXXXX, Questions: . THIS IS NOT INSURANCE.] cyclobenzaprine 10 mg tablet RxNorm: 371359 1 Tablet(s) PO TID as needed for spasm 12/17/2014 03/16/2015 Inactive [SAVINGS FOR NON -COVERED DRUGS -- BIN:557760, PCN: ASPROD1, Group: XXXXX, ID# XXXXXXX, Questions: . THIS IS NOT INSURANCE.] Coreg 6.25 mg tablet RxNorm: 081562 1 Tablet(s) PO BID 10/21/201409/2014 Inactive [SAVINGS FOR NON-COVERED DRUGS -- BIN:00 3585, PCN: ASPROD1, Group: XXXXX, ID# XXXXXXX, Questions: . THIS IS NOT INSURANCE.] Plavix 75 mg tablet RxNorm: 004202 1 Tablet(s) PO QD 10/21/201412/16 Inactive [SAVINGS FOR NON-COVERED DRUGS -- BIN:00 3585, PCN: ASPROD1, Group: XXXXX, ID# XXXXXXX, Questions: . THIS IS NOT INSURANCE.] Plavix 75 mg tablet RxNorm: 307353 1 Tablet(s) PO QD Ne eds routine check up--last seen March 2012 09/21/2014 10/20/2014 Inactive [SAVINGS FOR UNINSURED PATIENTS -- BIN:309297, PCN: ASPROD1, Group: AME08, ID# [id number], Process claim through MedImpact, for questions: . THIS IS NOT INSURANCE.] Ambien 5 mg tablet RxNorm: 052115 1 Tablet(s) PO QHS 09/21/201412/16 Inactive [SAVINGS FOR UNINSURED PATIENTS -- BIN:0 04792, PCN: ASPROD1, Group: AME08, ID# [id number], Process claim through MedImpact, for questions: . THIS IS NOT INSURANCE.] Coreg 6.25 mg tablet RxNorm: 395203 1 Tablet(s) PO BID 09/21/201411/2014 Inactive [SAVINGS FOR UNINSURED PATIENTS -- BIN:0 79294, PCN: ASPROD1, Group: AME08, ID# [id number], Process claim through MedImpact, for questions: . THIS IS NOT INSURANCE.] Plavix 75 mg tablet RxNorm: 043153 1 Tablet(s) PO QD Ne eds routine check up--last seen March 2012 08/04/2014 09/02/2014 Inactive [SAVINGS FOR UNINSURED PATIENTS -- BIN:595676, PCN: ASPROD1, Group: AME08, ID# [id number], Process claim through MedImpact, for questions: . THIS IS NOT INSURANCE.] Plavix 75 mg tablet RxNorm: 327866 1 Tablet(s) PO QD Ne eds routine check up--last seen March 2012 08/03/2014 08/03/2014 Inactive Protonix 40 mg tablet,delayed release RxNorm: 736909 1 Tablet(s ) PO QD 06/08/2014 02/17/2019 Inactive [SAVINGS FOR UNINSUR ED PATIENTS -- BIN:229159, PCN: ASPROD1, Group: AME08, ID# [id number], Process claim through GoToTags, for questions: . THIS IS NOT INSURANCE.] hydrocodone 10 mg-acetaminophen 325 mg tablet RxNorm: 110122 1 Tablet(s) PO BID as needed for pain 02/18/2014 03/31/2015 Inactive Coreg 6.25 mg tablet RxNorm: 264851 1 Tablet(s) PO BID 02/02/2014 Inactive Protonix 40 mg granules delayed-release packet RxNorm: 322112 1 Tablet(s) PO QD 01/13/2014 06/08/2014 Inactive Plavix 75 mg tablet RxNorm: 211038 1 Tablet(s) PO QD Ne eds routine check up--last seen March 2012 01/13/2014 08/02/2014 Inactive Plavix 75 mg tablet RxNorm: 542780 1 Tablet(s) PO QD Ne eds routine check up--last seen March 2012 12/09/2013 01/07/2014 Inactive Coreg 6.25 mg tablet RxNorm: 167343 1 Tablet(s) PO BID 12/09/2013 Inactive Cymbalta 60 mg capsule,delayed release RxNorm: 333158 1 Capsule (s) PO QD 10/31/2013 01/12/2014 Inactive Coreg 6.25 mg tablet RxNorm: 064803 1 Tablet(s) PO BID 10/31/2013 Inactive Plavix 75 mg tablet RxNorm: 710162 1 Tablet(s) PO QD Ne eds routine check up--last seen March 2012 10/31/2013 11/29/2013 Inactive Coreg 6.25 mg tablet RxNorm: 975184 1 Tablet(s) PO BID 10/31/2013 Inactive atorvastatin 40 mg tablet RxNorm: 884822 1 Tablet(s) PO QD 10/31/19 14 03/31/2015 Inactive Plavix 75 mg tablet RxNorm: 392241 1 Tablet(s) PO QD Ne eds routine check up--last seen March 2012 09/23/2013 10/30/2013 Inactive cyclobenzaprine 10 mg tablet RxNorm: 185725 1 Tablet(s) PO TID as needed for spasm 09/23/2013 No Stop Date Active cyclobenzaprine 10 mg tablet RxNorm: 911243 1 Tablet(s) PO TID as needed for spasm 07/04/2013 09/22/2013 Inactive atorvastatin 40 mg tablet RxNorm: 240788 1 Tablet(s) PO QD 06/23/20 13 10/30/2013 Inactive atorvastatin 40 mg tablet RxNorm: 372753 1 Tablet(s) PO QD 04/22/20 13 06/22/2013 Inactive Nucynta 50 mg tablet RxNorm: 580054 1-2 Tablet(s) PO Q6H as nee ded for pain 01/01/2013 01/12/2014 Inactive Ambien 5 mg tablet RxNorm: 724458 1 Tablet(s) PO QHS 10/16/201201/13 Inactive Plavix 75 mg tablet RxNorm: 500236 1 Tablet(s) PO QD 09/19/201209/13 Inactive Protonix 40 mg tablet,delayed release RxNorm: 441768 1 Tablet(s ) PO QD 09/19/2012 09/18/2012 Inactive simvastatin 40 mg tablet RxNorm: 751480 1 Tablet(s) PO QD 09/19/2012 02/23/2013 Inactive Protonix 40 mg tablet,delayed release RxNorm: 280285 1 Tablet(s ) PO QD 09/19/2012 09/13/2013 Inactive Ultram 50 mg tablet RxNorm: 232007 1-2 Tablet(s) PO QID as need ed for pain 09/19/2012 02/26/2017 Inactive propranolol 80 mg tablet RxNorm: 952819 1 Tablet(s) PO QHS 09/19/19 13 09/18/2012 Inactive Cymbalta 60 mg capsule,delayed release RxNorm: 453822 1 Capsule (s) PO QD 09/19/2012 09/18/2012 Inactive Cymbalta 60 mg capsule,delayed release RxNorm: 734467 1 Capsule (s) PO QD 09/19/2012 03/17/2013 Inactive propranolol 80 mg tablet RxNorm: 729538 1 Tablet(s) PO QHS 09/19/19 13 02/23/2013 Inactive hydrocodone-acetaminophen 10 mg-325 mg tablet RxNorm: 677561 2 1-2 Tablet(s) PO QID 07/25/2012 02/23/2013 Inactive Ambien 10 mg tablet RxNorm: 671604 1 Tablet(s) PO QHS as needed for sleep 07/10/2012 01/27/2013 Inactive propranolol 80 mg tablet RxNorm: 022330 1 Tablet(s) PO QHS 05/13/20 12 09/18/2012 Inactive hydrocodone-acetaminophen 10 mg-325 mg tablet RxNorm: 029480 2 1-2 Tablet(s) PO QID 05/02/2012 No Stop Date Active Restoril 15 mg Cap RxNorm: 538190 1-2 Capsule(s) PO QHS 05/02/2012 Inactive propranolol 80 mg tablet RxNorm: 269171 1 Tablet(s) PO QHS 05/02/20 12 05/12/2012 Inactive Chantix Starting Month Box 0.5 mg (11)-1 mg (42) Tabs in a Dose Pack RxNorm: 987914 Tablet(s) PO As Directed 04/01/2012 01/27/2013 Inactive simvastatin 40 mg tablet RxNorm: 185745 1 Tablet(s) PO QD 03/28/2012 09/18/2012 Inactive simvastatin 40 mg Tab RxNorm: 776910 1 Tablet(s) PO QD 03/22/201207/2012 Inactive Effient 10 mg Tab RxNorm: 053463 1 Tablet(s) PO QD 03/22/2012 012 Inactive Prilosec 40 mg Capsule, delayed release RxNorm: 228183 1 Capsul e(s) PO QD 03/22/2012 09/18/2012 Inactive Prilosec 40 mg Capsule, delayed release RxNorm: 436214 1 Capsul e(s) PO QD 03/19/2012 03/21/2012 Inactive Cymbalta 60 mg capsule,delayed release RxNorm: 768214 1 Capsule (s) PO QD 03/04/2012 08/30/2012 Inactive hydrocodone-acetaminophen 10 mg-325 mg Tab RxNorm: 4625155 1-2 T ablet(s) PO QID 01/23/2012 No Stop Date Active Cymbalta 60 mg Capsule, delayed release RxNorm: 118587 1 Capsul e(s) PO QD 01/23/2012 03/03/2012 Inactive Cipro 500 mg Tab RxNorm: 035709 1 Tablet(s) PO BID 12/20/2011 012 Inactive Cymbalta 60 mg Capsule, delayed release RxNorm: 711049 1 Capsul e(s) PO QD 12/13/2011 01/22/2012 Inactive nortriptyline 75 mg Cap RxNorm: 714935 1 Capsule(s) PO QHS 11/29/1904/02/2012 Inactive Cymbalta 60 mg Cap RxNorm: 945195 1 Capsule(s) PO QD 10/24/201112/11 Inactive propranolol 80 mg Tab RxNorm: 889407 1 Tablet(s) PO QHS 10/24/2011 Inactive hydrocodone-acetaminophen 10 mg-325 mg Tab RxNorm: 7444384 1-2 T ablet(s) PO QID 09/29/2011 No Stop Date Active hydrocodone-acetaminophen 10 mg-325 mg Tab RxNorm: 7957064 1-2 T ablet(s) PO QID 07/25/2011 No Stop Date Active hydrocodone-acetaminophen 10 mg-325 mg Tab RxNorm: 8557396 1-2 T ablet(s) PO QID 02/14/2011 No Stop Date Active Prilosec 40 mg Cap RxNorm: 045274 1 Capsule(s) PO 01/03/2011 01/13/20 19 Inactive nortriptyline 75 mg Cap RxNorm: 705636 1 Capsule(s) PO QHS 01/04/20 11 07/01/2011 Inactive Neurontin 600 mg Tab RxNorm: 986943 1 Tablet(s) PO QHS 12/08/201011/2011 Inactive hydrocodone-acetaminophen 5 mg-500 mg Tab RxNorm: 429175 2 Tablet(s) PO Q4-6H prn 10/20/2010 01/08/2011 Inactive Diltzac ER 240 mg Cap RxNorm: 582892 1 Capsule(s) PO QD 07/14/2010 Inactive Nortriptyline 75 mg Cap RxNorm: 412869 1 Capsule(s) PO QHS 05/09/20 10 01/12/2019 Inactive Neurontin 600 mg Tab RxNorm: 249066 1 Tablet(s) PO QD 03/17/201012/17 Inactive Nortriptyline 75 mg Cap RxNorm: 581209 1 Capsule(s) PO 01/12/2010 Inactive Nortriptyline 50 mg Cap RxNorm: 016637 1 Capsule(s) PO QHS 01/13/20 10 01/11/2010 Inactive Diltzac ER 240 mg Cap RxNorm: 023125 1 Capsule(s) PO QD 12/06/2009 Inactive aspirin 81 mg Tab RxNorm: 928368 1 Tablet(s) PO QD No Start Date Active Vitamin D3 2,000 unit tablet RxNorm: 391501 1 Tablet(s) PO QD No Star t Date Active jrlssczkp-gdgnrcyae-jtnljh complex no.233 oral RxNorm: oral No Start Date Active primidone 50 mg tablet RxNorm: 698817 2 Tablet(s) PO BID No Start Date Active Prilosec 40 mg Capsule, delayed release RxNorm: 898497 1 Capsul e(s) PO QD No Start Date 03/18/2012 Inactive Prilosec 20 mg Cap RxNorm: 865426 1 Capsule(s) PO QHS No Start Date 0 01/02/2011 Inactive primidone 50 mg tablet RxNorm: 728116 1/2 Tablet(s) PO QHS for 1week then go full tab if needed No Start Date 05/01/2017 Inactive ProAir HFA 90 mcg/actuation aerosol inhaler RxNorm: 729887 2 Puff(s) INH Q4H as needed No Start Date 10/29/2017 Inactive clonazepam 0.5 mg tablet RxNorm: 659329 1/2 Tablet(s) PO BID No Sta rt Date 02/12/2017 Inactive Pepcid AC 10 mg Tab RxNorm: 984456 1 Tablet(s) PO QAM No Start Date 0 02/19/2011 Inactive Coreg Oral RxNorm: Oral No Start Date 01/12/2014 Inactive primidone 50 mg tablet RxNorm: 202041 1/2 Tablet(s) PO QD for 7 days then increase to 1 tablet at bedtime No Start Date 01/08/2017 Inactive Medrol (Jose) 4 mg tablets in a dose pack RxNorm: 464468 Tablet(s) PO As Directed No Start Date 01/12/2016 Inactive Plavix 75 mg tablet RxNorm: 349693 1 Tablet(s) PO QD No Start Date Inactive cyclobenzaprine 10 mg tablet RxNorm: 612597 1 Tablet(s) PO TID as needed for spasm No Start Date 07/03/2013 Inactive Bevespi Aerosphere 9 mcg-4.8 mcg HFA aerosol inhaler RxNorm: 1232356 2 Puff(s) INH BID No Start Date 02/18/2019 Inactive tramadol 50 mg tablet RxNorm: 008416 1-2 Tablet(s) PO TID as ne eded for pain No Start Date 01/12/2019 Inactive clonazepam 1 mg tablet RxNorm: 116522 1 Tablet(s) PO QAM No Start D ate 09/18/2018 Inactive hydrocodone-acetaminophen 5 mg-500 mg Tab RxNorm: 236151 2 Tablet(s) PO Q4-6H prn No Start Date 10/19/2010 Inactive lisinopril 20 mg Tab RxNorm: 383650 1/2 Tablet(s) PO QD No Start Da te 03/12/2011 Inactive Lyrica 75 mg capsule RxNorm: 833078 1 Capsule(s) PO QHS No Start Da te 10/08/2019 Inactive Protonix 40 mg tablet,delayed release RxNorm: 247801 1 Tablet(s ) PO QD No Start Date 06/07/2014 Inactive Lipitor Oral RxNorm: Oral No Start Date 01/12/2014 Inactive primidone 50 mg tablet RxNorm: 405878 2 Tablet(s) PO QAM and 1 tablet at HS No Start Date 02/17/2019 Inactive hydrocodone-acetaminophen 10 mg-325 mg Tab RxNorm: 6209555 1-2 T ablet(s) PO QID No Start Date 02/13/2011 Inactive Ultram 50 mg tablet RxNorm: 408904 1-2 Tablet(s) PO QID as need ed for pain No Start Date 09/18/2012 Inactive Effient 10 mg Tab RxNorm: 262841 1 Tablet(s) PO QD No Start Date 01/2012 Inactive Bevespi Aerosphere 9 mcg-4.8 mcg HFA aerosol inhaler RxNorm: 2451519 2 Puff(s) INH BID No Start Date 10/29/2017 Inactive Neurontin Oral RxNorm: Oral No Start Date 01/12/2010 Inactive primidone 50 mg tablet RxNorm: 366431 1 Tablet(s) PO QD No Start Da te 01/12/2019 Inactive Chantix Starting Month Box 0.5 mg (11)-1 mg (42) Tabs in a Dose Pack RxNorm: 837921 Tablet(s) PO No Start Date 03/31/2012 Inactive atenolol 25 mg Tab RxNorm: 173150 1 Tablet(s) PO QD No Start Date 02/2012 Inactive Neurontin 600 mg Tab RxNorm: 648065 1 Tablet(s) PO QD No Start Date 0 03/16/2010 Inactive Nucynta 50 mg tablet RxNorm: 650202 1-2 Tablet(s) PO Q6H as nee ded for pain No Start Date 12/31/2012 Inactive simvastatin 40 mg Tab RxNorm: 159582 1 Tablet(s) PO QD No Start Date 03/21/2012 Inactive Medication Administered No Medication Administered data Immunizations Vaccine Codes Date Status Influenza CVX: 135 07/04/2017 Complete Results Observation Observation Code Item Item Code Result Date S [facility] Location COMPLETE BLOOD COUNT [id number] WBC 4.9 10e9/L 09/30/19 20 Unknown COMPLETE BLOOD COUNT [id number] RBC 4.65 10e12/L 2019 Unknown COMPLETE BLOOD COUNT [id number] HEMOGLOBIN 13.8 g/dL 09/30/19 20 Unknown COMPLETE BLOOD COUNT [id number] HEMATOCRIT 42.3 % 09/30/19 20 Unknown COMPLETE BLOOD COUNT [id number] MCV 91.0 fL 0 Unknown COMPLETE BLOOD COUNT [id number] MCH 29.7 pg 0 Unknown COMPLETE BLOOD COUNT [id number] MCHC 32.6 g/dL 0 Unknown COMPLETE BLOOD COUNT [id number] PLATELET COUNT 230 10e9/L Unknown COMPLETE BLOOD COUNT 1466087 Mean Plt Volume 9.9 fL Unknown COMPLETE BLOOD COUNT 8958344 Neut Auto 52.5 % 0 Unknown COMPLETE BLOOD COUNT [id number] Lymph Auto 30.8 % 09/30/19 20 Unknown COMPLETE BLOOD COUNT [id number] [place] Auto 11.2 % 0 Unknown COMPLETE BLOOD COUNT 9884685 RDW 13.5 % 0 Unknown COMPLETE BLOOD COUNT 8852017 Eos Auto 5.1 % 0 Unknown COMPLETE BLOOD COUNT [id number] Baso Auto 0.4 % 0 Unknown COMPLETE BLOOD COUNT [id number] Neutrophil Abs 2.57 10e9/L Unknown COMPLETE BLOOD COUNT [id number] Lymphocyte Abs 1.51 10e9/L Unknown COMPLETE BLOOD COUNT [id number] Monocyte Abs 0.55 10e9/L 09/17 Unknown COMPLETE BLOOD COUNT [id number] Eosinophil Abs 0.25 10e9/L Unknown COMPLETE BLOOD COUNT [id number] RDW-SD 43.9 fL 0 Unknown COMPLETE BLOOD COUNT [id number] Basophil Abs 0.02 10e9/L 09/17 Unknown GFR CALC 9299537 GFR Non Afr Amr >60 mL/min 09/30/2019 Un known GFR CALC 4348589 GFR Afr Amr >60 mL/min 09/30/2019 Unknow n THYROID STIMULATING HORMONE 90317 TSH 1.129 uIU/mL 09/30/2019 Unknown PSA EQUIMOLAR BARBIE 77115 PSA Total 0.77 ng/mL 0 Unknown LIP[facility] GROUP 09601 Cholesterol 192 mg/dL 09/30/2019 Unkno wn LIPID GROUP 26032 Triglyceride 86 mg/dL 09/30/2019 Unkn own LIPID GROUP 91931 HDL CHOLESTEROL 64 mg/dL 09/30/2019 U nknown LIPID GROUP 69858 Chol/HDL Ratio 3.00 ratio 09/30/2019 U nknown LIPID GROUP 75561 NON-HDL Chol 128 mg/dL 09/30/2019 Unkn own LIPID GROUP 79643 LDL Cholesterol 111 mg/dL 09/30/2019 U nknown COMPREHENSIVE METABOLIC 12414 AST 17 U/L 2019 Unknown COMPREHENSIVE METABOLIC 52710 ALT 10 U/L 2019 Unknown COMPREHENSIVE METABOLIC 51006 BUN 13 mg/dL 2019 Unknown COMPREHENSIVE METABOLIC 93568 ALBUMIN 4.3 g/dL 2019 Unknown COMPREHENSIVE METABOLIC 44098 CHLORIDE 102 mmol/L 09/30 Unknown COMPREHENSIVE METABOLIC 93126 Bili Total 0.6 mg/dL 09/30 Unknown COMPREHENSIVE METABOLIC 50340 ALK PHOS 91 U/L 2019 Unknown COMPREHENSIVE METABOLIC 41641 SODIUM 138 mmol/L 09/30 Unknown COMPREHENSIVE METABOLIC 42377 CREATININE 1.09 mg/dL 09/17 Unknown COMPREHENSIVE METABOLIC 66503 CALCIUM 9.0 mg/dL 2019 Unknown COMPREHENSIVE METABOLIC 52385 POTASSIUM 4.5 mmol/L 09/30 Unknown COMPREHENSIVE METABOLIC 79166 Total Protein 6.8 g/dL Unknown COMPREHENSIVE METABOLIC 35750 Glucose 91 mg/dL 2019 Unknown COMPREHENSIVE METABOLIC 71808 Bicarbonate 28 mmol/L 09/17 Unknown COMPREHENSIVE METABOLIC 88063 AGAP 8 mmol/L 2019 Unknown COMPLETE BLOOD COUNT [id number] WBC 4.9 10e9/L 09/04/20 18 Unknown COMPLETE BLOOD COUNT [id number] RBC 4.42 10e12/L 2017 Unknown COMPLETE BLOOD COUNT [id number] HEMOGLOBIN 13.4 g/dL 09/04/20 18 Unknown COMPLETE BLOOD COUNT 1683153 HEMATOCRIT 40.5 % 09/04/20 18 Unknown COMPLETE BLOOD COUNT [id number] MCV 91.6 fL 8 Unknown COMPLETE BLOOD COUNT 0073484 MCH 30.3 pg 8 Unknown COMPLETE BLOOD COUNT 0270034 MCHC 33.1 g/dL 8 Unknown COMPLETE BLOOD COUNT 8148234 PLATELET COUNT 224 10e9/L Unknown COMPLETE BLOOD COUNT 9353782 Mean Plt Volume 9.9 fL Unknown COMPLETE BLOOD COUNT 0503118 Neut Auto 60.8 % 8 Unknown COMPLETE BLOOD COUNT [id number] Lymph Auto 26.8 % 09/04/20 18 Unknown COMPLETE BLOOD COUNT 7791986 [place] Auto 10.4 % 8 Unknown COMPLETE BLOOD COUNT 0174398 RDW 12.8 % 8 Unknown COMPLETE BLOOD COUNT 2701070 Eos Auto 1.6 % 8 Unknown COMPLETE BLOOD COUNT 4637751 Baso Auto 0.4 % 8 Unknown COMPLETE BLOOD COUNT [id number] Neutrophil Abs 2.98 10e9/L Unknown COMPLETE BLOOD COUNT 6277684 Lymphocyte Abs 1.31 10e9/L Unknown COMPLETE BLOOD COUNT [id number] Monocyte Abs 0.51 10e9/L 08/17 Unknown COMPLETE BLOOD COUNT [id number] Eosinophil Abs 0.08 10e9/L Unknown COMPLETE BLOOD COUNT [id number] RDW-SD 41.6 fL 8 Unknown COMPLETE BLOOD COUNT [id number] Basophil Abs 0.02 10e9/L 08/17 Unknown COMPREHENSIVE METABOLIC 41616 AST 16 U/L 2017 Unknown COMPREHENSIVE METABOLIC 20145 ALT 8 U/L 2017 Unknown COMPREHENSIVE METABOLIC 85334 BUN 12 mg/dL 2017 Unknown COMPREHENSIVE METABOLIC 84300 ALBUMIN 4.4 g/dL 2017 Unknown COMPREHENSIVE METABOLIC 63811 CHLORIDE 107 mmol/L 09/04 Unknown COMPREHENSIVE METABOLIC 32201 Bili Total 1.0 mg/dL 09/04 Unknown COMPREHENSIVE METABOLIC 44875 ALK PHOS 58 U/L 2017 Unknown COMPREHENSIVE METABOLIC 77320 SODIUM 142 mmol/L 09/04 Unknown COMPREHENSIVE METABOLIC 58295 CREATININE 0.97 mg/dL 08/17 Unknown COMPREHENSIVE METABOLIC 04810 CALCIUM 9.2 mg/dL 2017 Unknown COMPREHENSIVE METABOLIC 28807 POTASSIUM 4.6 mmol/L 09/04 Unknown COMPREHENSIVE METABOLIC 06468 Total Protein 6.5 g/dL Unknown COMPREHENSIVE METABOLIC 00550 Glucose 96 mg/dL 2017 Unknown COMPREHENSIVE METABOLIC 56149 Bicarbonate 29 mmol/L 08/17 Unknown COMPREHENSIVE METABOLIC 97583 AGAP 6 mmol/L 2017 Unknown LIPID GROUP 71826 Cholesterol 182 mg/dL 09/04/2018 Unkno wn LIPID GROUP 69625 Triglyceride 84 mg/dL 09/04/2018 Unkn own LIPID GROUP 52098 HDL CHOLESTEROL 76 mg/dL 09/04/2018 U nknown LIPID GROUP 22657 Chol/HDL Ratio 2.39 ratio 09/04/2018 U nknown LIPID GROUP 40785 NON-HDL Chol 106 mg/dL 09/04/2018 Unkn own LIPID GROUP 66534 LDL Cholesterol 89 mg/dL 09/04/2018 U nknown GFR CALC 4024381 GFR Non Afr Amr >60 mL/min 09/04/2018 Un known GFR CALC 7354983 GFR Afr Amr >60 mL/min 09/04/2018 Unknow n THYROID STIMULATING HORMONE 95507 TSH 0.713 uIU/mL 09/04/2018 Unknown PSA EQUIMOLAR BARBIE 84591 PSA Total 0.66 ng/mL 8 Unknown A FOOD C P [id number] [place] Cl Class 0 11/17/2017 Unknown A FOOD C P [id number] [place] Ct <0.35 kU/L 11/17/2017 Unknow n A FOOD C P 1009935 [place] Cl Class 0 11/17/2017 Unkn own A FOOD C P [id number] [place] [facility] <0.35 kU/L 11/17/2017 Unk nown A FOOD C P [id number] Egg White Cl Class 0 11/17/2017 Unkno wn A FOOD C P [id number] Egg White Ct <0.35 kU/L 11/17/2017 Unkn own A FOOD C P [id number] Egg Yolk Cl Class 0 11/17/2017 Unknow n A FOOD C P [id number] Egg Yolk Ct <0.35 kU/L 11/17/2017 Unkno wn A FOOD C P [id number] Cow Milk Cl Class 0 11/17/2017 Unknow n A FOOD C P [id number] Cow Milk Ct <0.35 kU/L 11/17/2017 Unkno wn A FOOD C P 3410130 Peanut Cl Class 0 11/17/2017 Unknown A FOOD C P [id number] Peanut Ct <0.35 kU/L 11/17/2017 Unknown A FOOD C P [id number] Shrimp Cl Class 0 11/17/2017 Unknown A FOOD C P 3350759 [place] Ct <0.35 kU/L 11/17/2017 Unknown A FOOD C P 7433865 [place] Cl Class 0 11/17/2017 Unknown A FOOD C P [id number] [place] Ct <0.35 kU/L 11/17/2017 Unknow n A FOOD C P 3932348 [place] Cl Class 0 11/17/2017 Unknown A FOOD C P [id number] Wheat Ct <0.35 kU/L 11/17/2017 Unknown A FOOD C P 9421843 Potato Cl Class 0 11/17/2017 Unknown A FOOD C P 6187615 Potato Ct <0.35 kU/L 11/17/2017 Unknown A FOOD C P 1183802 Beef Cl Class 2 11/17/2017 Unknown A FOOD C P [id number] Beef Ct 0.88 kU/L 11/17/2017 Unknown A FOOD C P 7785206 [place] Cl Class 0 11/17/2017 Unknown A FOOD C P [id number] [place] [address] <0.35 kU/L 11/17/2017 Unknown A FOOD C P 0925050 P[place] Cl Class 0 11/17/2017 Unknown A FOOD C P [id number] [place] Ct <0.35 kU/L 11/17/2017 Unknown A FOOD C P [id number] [place] Cl Class 0 11/17/2017 Unknown A FOOD C P [id number] [place] Ct <0.35 kU/L 11/17/2017 Unknown A FOOD C P [id number] [place] Cl Class 0 11/17/2017 Unkn own A FOOD C P [id number] [place] Ct <0.35 kU/L 11/17/2017 Unk nown A FOOD C P [id number] [place] Cl Class 0 11/17/2017 Unknown A FOOD C P [id number] [place] Ct <0.35 kU/L 11/17/2017 Unknown A FOOD C P 7277563 [place] Cl Class 0 11/17/2017 Unknown A FOOD C P 1431534 [place] Ct <0.35 kU/L 11/17/2017 Unknown A FOOD C P [id number] [place] [facility] Class 0 11/17/2017 Unknown A FOOD C P 0367003 [place] <0.35 kU/L 11/17/2017 Unknown A FOOD C P [id number] [place] Cl Class 0 11/17/2017 Unknown A FOOD C P [id number] [place] Ct <0.35 kU/L 11/17/2017 Unknown A FOOD C P 1904637 Oat Cl Class 0 11/17/2017 Unknown A FOOD C P 4208347 Oat Ct <0.35 kU/L 11/17/2017 Unknown A FOOD C P 8267503 [place] Cl Class 0 11/17/2017 Unknown A FOOD C P [id number] [place] [facility] <0.35 kU/L 11/17/2017 Unknown A FOOD C P [id number] [place] CL Class 0 11/17/2017 Un known A FOOD C P [id number] [place] Ct <0.35 kU/L 11/17/2017 U nknown A FOOD C P [id number] [place] Cl Class 0 11/17/2017 Unknown A FOOD C P 0928897 [place] Ct <0.35 kU/L 11/17/2017 Unknown A FOOD C P [id number] [place] Meat Cl Class 0 11/17/2017 Unkn own A FOOD C P [id number] [place] Ct <0.35 kU/L 11/17/2017 Unk nown A NUTS PNL 9110529 Peanut Cl Class 0 11/17/2017 Unknown A NUTS PNL 1334967 Pe[place] Ct <0.35 kU/L 11/17/2017 Unknown A NUTS PNL 9307641 [place] Meat Cl Class 0 11/17/2017 Unk nown A NUTS PNL [id number] [place] [facility] <0.35 kU/L 11/17/2017 Un known A NUTS PNL 1324863 [place] Cl Class 0 11/17/2017 Unkn own A NUTS PNL 4306067 [place] Ct <0.35 kU/L 11/17/2017 Unk nown A NUTS PNL 9277942 [place] Cl Class 0 11/17/2017 Unknown A NUTS PNL 1772699 [place] [facility] <0.35 kU/L 11/17/2017 Unknown A NUTS PNL 5785591 [place] Cl Class 0 11/17/2017 Unknow n A NUTS PNL 8507063 [place] [facility] <0.35 kU/L 11/17/2017 Unkno wn A NUTS PNL 7555888 [place] Cl Class 0 11/17/2017 Unkno wn A NUTS PNL 5542435 [place] [facility] <0.35 kU/L 11/17/2017 Unkn own A NUTS PNL 3044596 [place] Cl Class 0 11/17/2017 Unknown A NUTS PNL 9532491 [place] Ct <0.35 kU/L 11/17/2017 Unknown A NUTS PNL 2530535 [place] Cl Class 0 11/17/2017 Unkno wn A NUTS PNL 2969135 [place] Ct <0.35 kU/L 11/17/2017 Unkn own A NUTS PNL 2115491 Allergen Interp See Note 11/17/2017 Un known A FRT/VG P 5457614 [place] Cl Class 0 11/17/2017 Unkn own A FRT/VG P [id number] [place] [facility] <0.35 kU/L 11/17/2017 Unk nown A FRT/VG P 8896862 [place] Cl Class 0 11/17/2017 Unknown A FRT/VG P [id number] [place] Ct <0.35 kU/L 11/17/2017 Unknown A FRT/VG P 5820607 [place] Cl Class 0 11/17/2017 Unkn own A FRT/VG P [id number] [place] [facility] <0.35 kU/L 11/17/2017 Unk nown A FRT/VG P [id number] [place] Cl Class 0 11/17/2017 Unknown A FRT/VG P 7901904 [place] Ct <0.35 kU/L 11/17/2017 Unknown A FRT/VG P [id number] [place] Cl Class 0 11/17/2017 Unknown A FRT/VG P [id number] [place] [facility] <0.35 kU/L 11/17/2017 Unknown A FRT/VG P 4211761 [place] Cl Class 1 11/17/2017 Unknown A FRT/VG P [id number] [place] Ct 0.48 kU/L 11/17/2017 Unknown A FRT/VG P [id number] [place] Cl Class 0 11/17/2017 Unk nown A FRT/VG P [id number] [place] [facility] <0.35 kU/L 11/17/2017 Un known A FRT/VG P [id number] [place] Cl Class 0 11/17/2017 Unk nown A FRT/VG P [id number] [place] Ct <0.35 kU/L 11/17/2017 Un known A FRT/VG P [id number] [place] Cl Class 0 11/17/2017 Unknown A FRT/VG P [id number] [place] Ct <0.35 kU/L 11/17/2017 Unknown A FRT/VG P 0703548 [place] Cl Class 0 11/17/2017 Unknown A FRT/VG P 8818753 [place] Ct <0.35 kU/L 11/17/2017 Unknown A FRT/VG P 1153214 [place] Cl Class 0 11/17/2017 Unkn own A FRT/VG P [id number] [place] Ct <0.35 kU/L 11/17/2017 Unk nown A FRT/VG P 2242742 Swt [place] Cl Class 0 11/17/2017 Unkn own A FRT/VG P [id number] Swt [place] Ct <0.35 kU/L 11/17/2017 Unk nown THYROID STIMULATING HORMONE 78721 TSH 1.371 uIU/mL 09/03/2017 Unknown FREE T4 05935 T4 Free 1.26 ng/dL 09/03/2017 Unknown ASSAY TRIIODOTHYRONINE (T3) 92349 T3 Total 0.9 ng/mL Unknown COMPLETE BLOOD COUNT 0485238 WBC 5.9 10e9/L 07/31/20 17 Unknown COMPLETE BLOOD COUNT [id number] RBC 4.64 10e12/L 2016 Unknown COMPLETE BLOOD COUNT [id number] HEMOGLOBIN 14.2 g/dL 07/31/20 17 Unknown COMPLETE BLOOD COUNT 6627398 HEMATOCRIT 42.1 % 07/31/20 17 Unknown COMPLETE BLOOD COUNT 9542030 MCV 90.7 fL 7 Unknown COMPLETE BLOOD COUNT 7461994 MCH 30.6 pg 7 Unknown COMPLETE BLOOD COUNT 4355023 MCHC 33.7 g/dL 7 Unknown COMPLETE BLOOD COUNT 5870147 PLATELET COUNT 195 10e9/L Unknown COMPLETE BLOOD COUNT 5917338 Mean Plt Volume 10.0 fL Unknown COMPLETE BLOOD COUNT 7429724 Neut Auto 47.5 % 7 Unknown COMPLETE BLOOD COUNT 4230745 Lymph Auto 37.4 % 07/31/20 17 Unknown COMPLETE BLOOD COUNT 8400035 [place] Auto 11.7 % 7 Unknown COMPLETE BLOOD COUNT 6066870 Eos Auto 3.2 % 7 Unknown COMPLETE BLOOD COUNT 8544716 RDW 12.8 % 7 Unknown COMPLETE BLOOD COUNT 6404989 Baso Auto 0.2 % 7 Unknown COMPLETE BLOOD COUNT 3206228 Neutrophil Abs 2.80 10e9/L Unknown COMPLETE BLOOD COUNT 7476135 Lymphocyte Abs 2.21 10e9/L Unknown COMPLETE BLOOD COUNT 8756576 Monocyte Abs 0.69 10e9/L 07/18 Unknown COMPLETE BLOOD COUNT 9091012 Eosinophil Abs 0.19 10e9/L Unknown COMPLETE BLOOD COUNT 6321746 RDW-SD 41.6 fL 7 Unknown COMPLETE BLOOD COUNT [id number] Basophil Abs 0.01 10e9/L 07/18 Unknown LIPID GROUP 99473 Cholesterol 186 mg/dL 07/31/2017 Unkno wn LIPID GROUP 44552 Triglyceride 129 mg/dL 07/31/2017 Unkn own LIPID GROUP 81812 HDL CHOLESTEROL 79 mg/dL 07/31/2017 U nknown LIPID GROUP 63187 Chol/HDL Ratio 2.35 ratio 07/31/2017 U nknown LIPID GROUP 05943 NON-HDL Chol 107 mg/dL 07/31/2017 Unkn own LIPID GROUP 43824 LDL Cholesterol 81 mg/dL 07/31/2017 U nknown GFR CALC 2989749 GFR Non Afr Amr >60 mL/min 07/31/2017 Un known GFR CALC 9192778 GFR Afr Amr >60 mL/min 07/31/2017 Unknow n COMPREHENSIVE METABOLIC 02228 AST 19 U/L 2016 Unknown COMPREHENSIVE METABOLIC 07180 ALT 12 U/L 2016 Unknown COMPREHENSIVE METABOLIC 30622 BUN 15 mg/dL 2016 Unknown COMPREHENSIVE METABOLIC 08133 ALBUMIN 4.4 g/dL 2016 Unknown COMPREHENSIVE METABOLIC 69738 CHLORIDE 102 mmol/L 07/31 Unknown COMPREHENSIVE METABOLIC 44706 Bili Total 0.9 mg/dL 07/31 Unknown COMPREHENSIVE METABOLIC 96570 ALK PHOS 53 U/L 2016 Unknown COMPREHENSIVE METABOLIC 03061 SODIUM 138 mmol/L 07/31 Unknown COMPREHENSIVE METABOLIC 48020 CREATININE 1.06 mg/dL 07/18 Unknown COMPREHENSIVE METABOLIC 92717 CALCIUM 9.3 mg/dL 2016 Unknown COMPREHENSIVE METABOLIC 77204 POTASSIUM 4.0 mmol/L 07/31 Unknown COMPREHENSIVE METABOLIC 52916 Total Protein 6.8 g/dL Unknown COMPREHENSIVE METABOLIC 43078 Glucose 86 mg/dL 2016 Unknown COMPREHENSIVE METABOLIC 91235 Bicarbonate 28 mmol/L 07/18 Unknown COMPREHENSIVE METABOLIC 98598 AGAP 8 mmol/L 2016 Unknown COMPREHENSIVE METABOLIC 14629 AST 18 U/L 2015 Unknown COMPREHENSIVE METABOLIC 14571 ALT 9 U/L 2015 Unknown COMPREHENSIVE METABOLIC 34488 BUN 11 mg/dL 2015 Unknown COMPREHENSIVE METABOLIC 00730 ALBUMIN 4.2 g/dL 2015 Unknown COMPREHENSIVE METABOLIC 67502 CHLORIDE 104 mmol/L 05/19 Unknown COMPREHENSIVE METABOLIC 67934 Bili Total 1.2 mg/dL 05/19 Unknown COMPREHENSIVE METABOLIC 69813 ALK PHOS 54 U/L 2015 Unknown COMPREHENSIVE METABOLIC 42702 SODIUM 140 mmol/L 05/19 Unknown COMPREHENSIVE METABOLIC 10772 CREATININE 1.03 mg/dL 10/2015 Unknown COMPREHENSIVE METABOLIC 83817 CALCIUM 9.3 mg/dL 2015 Unknown COMPREHENSIVE METABOLIC 89063 POTASSIUM 4.9 mmol/L 05/19 Unknown COMPREHENSIVE METABOLIC 88295 Total Protein 6.7 g/dL Unknown COMPREHENSIVE METABOLIC 16290 Glucose 92 mg/dL 2015 Unknown COMPREHENSIVE METABOLIC 37956 Bicarbonate 28 mmol/L 10/2015 Unknown COMPREHENSIVE METABOLIC 72132 AGAP 8 mmol/L 2015 Unknown THYROID STIMULATING HORMONE 51279 TSH 1.545 uIU/mL 05/19/2016 Unknown GFR CALC 1205702 GFR Non Afr Amr >60 mL/min 05/19/2016 Un known GFR CALC 0311339 GFR Afr Amr >60 mL/min 05/19/2016 Unknow n VITAMIN B 12 90663 VITAMIN B12 298 pg/mL 05/19/2016 Unkn own COMPLETE BLOOD COUNT 6007489 WBC 5.2 10e9/L 05/19/20 16 Unknown COMPLETE BLOOD COUNT [id number] RBC 4.34 10e12/L 2015 Unknown COMPLETE BLOOD COUNT 8491749 HEMOGLOBIN 12.9 g/dL 05/19/20 16 Unknown COMPLETE BLOOD COUNT 7766711 HEMATOCRIT 38.9 % 05/19/20 16 Unknown COMPLETE BLOOD COUNT [id number] MCV 89.6 fL 6 Unknown COMPLETE BLOOD COUNT 6979710 MCH 29.7 pg 6 Unknown COMPLETE BLOOD COUNT 1162576 MCHC 33.2 g/dL 6 Unknown COMPLETE BLOOD COUNT 7042895 PLATELET COUNT 200 10e9/L 10/2015 Unknown COMPLETE BLOOD COUNT 7958326 Mean Plt Volume 10.1 fL 10/2015 Unknown COMPLETE BLOOD COUNT 7855226 Neut Auto 45.4 % 6 Unknown COMPLETE BLOOD COUNT 9059614 Lymph Auto 35.6 % 05/19/20 16 Unknown COMPLETE BLOOD COUNT 5395080 [place] Auto 11.9 % 6 Unknown COMPLETE BLOOD COUNT 7264216 RDW 12.7 % 6 Unknown COMPLETE BLOOD COUNT 2100919 Eos Auto 6.7 % 6 Unknown COMPLETE BLOOD COUNT 0563316 Baso Auto 0.4 % 6 Unknown COMPLETE BLOOD COUNT 0549923 Neutrophil Abs 2.36 10e9/L Unknown COMPLETE BLOOD COUNT 9169235 Lymphocyte Abs 1.85 10e9/L Unknown COMPLETE BLOOD COUNT 9121940 Monocyte Abs 0.62 10e9/L 10/2015 Unknown COMPLETE BLOOD COUNT 9586081 Eosinophil Abs 0.35 10e9/L Unknown COMPLETE BLOOD COUNT 0545900 RDW-SD 40.6 fL 6 Unknown COMPLETE BLOOD COUNT [id number] Basophil Abs 0.02 10e9/L 10/2015 Unknown LIPID GROUP 38164 Cholesterol 197 mg/dL 05/19/2016 Unkno wn LIPID GROUP 52709 Triglyceride 92 mg/dL 05/19/2016 Unkn own LIPID GROUP 73395 HDL CHOLESTEROL 58 mg/dL 05/19/2016 U nknown LIPID GROUP 41480 Chol/HDL Ratio 3.40 ratio 05/19/2016 U nknown LIPID GROUP 78602 NON-HDL Chol 139 mg/dL 05/19/2016 Unkn own LIPID GROUP 11758 LDL Cholesterol 121 mg/dL 05/19/2016 U nknown FREE T4 48975 T4 Free 1.19 ng/dL 05/19/2016 Unknown COMPREHENSIVE METABOLIC 38382 AST 19 U/L 2014 Unknown COMPREHENSIVE METABOLIC 90347 ALT 10 IU/L 2014 Unknown COMPREHENSIVE METABOLIC 77535 BUN 20 MG/DL 2014 Unknown COMPREHENSIVE METABOLIC 85560 ALBUMIN 4.4 GM/DL 2014 Unknown COMPREHENSIVE METABOLIC 39693 CHLORIDE 104 MMOL/L 04/05 Unknown COMPREHENSIVE METABOLIC 68089 BILI TOT 2.2 MG/DL 2014 Unknown COMPREHENSIVE METABOLIC 69514 ALK PHOS 55 U/L 2014 Unknown COMPREHENSIVE METABOLIC 63840 SODIUM 138 MMOL/L 04/05 Unknown COMPREHENSIVE METABOLIC 49726 CREATININE 1.04 MG/DL 03/18 Unknown COMPREHENSIVE METABOLIC 72317 CALCIUM 9.3 MG/DL 2014 Unknown COMPREHENSIVE METABOLIC 20930 POTASSIUM 4.5 MMOL/L 04/05 Unknown COMPREHENSIVE METABOLIC 95640 PROT TOT 6.7 GM/DL 2014 Unknown COMPREHENSIVE METABOLIC 91019 Glucose 77 MG/DL 2014 Unknown COMPREHENSIVE METABOLIC 05075 BICARB 25 MMOL/L 2014 Unknown COMPREHENSIVE METABOLIC 97333 ANION GAP 9 MEQ/L 2014 Unknown GFR CALC 9824292 GFR AA >60 ML/MIN 04/05/2015 Unknown GFR CALC 7286726 GFR NON-AA >60 ML/MIN 04/05/2015 Unknown LIPID GROUP 87255 HDL TEST 60 MG/DL 04/05/2015 Unknown LIPID GROUP 51532 TRIG 70 MG/DL 04/05/2015 Unknown LIPID GROUP 98413 TEST LDL 137 MG/DL 04/05/2015 Unknown LIPID GROUP 49925 CHOL 211 MG/DL 04/05/2015 Unknown LIPID GROUP 49805 RCHOL/HDL 3.52 RATIO 04/05/2015 Unknow n LIPID GROUP 44337 NON-HDL CH 151 MG/DL 04/05/2015 Unknow n COMPLETE BLOOD COUNT [id number] WBC 5.3 10e9/L 04/05/20 15 Unknown COMPLETE BLOOD COUNT [id number] RBC 4.42 10e12/L 2014 Unknown COMPLETE BLOOD COUNT 9137118 HGB 13.4 g/dL 5 Unknown COMPLETE BLOOD COUNT 8728612 HCT DET 39.6 % 5 Unknown COMPLETE BLOOD COUNT 7564448 MCV 89.6 fL 5 Unknown COMPLETE BLOOD COUNT 6520888 MCH 30.3 pg 5 Unknown COMPLETE BLOOD COUNT 9223955 MCHC 33.8 g/dL 5 Unknown COMPLETE BLOOD COUNT 9276350 PLT 201 10e9/L 04/05/20 15 Unknown COMPLETE BLOOD COUNT 2489627 MPV 10.3 fL 5 Unknown COMPLETE BLOOD COUNT 8057765 LUPE % 56.4 % 5 Unknown COMPLETE BLOOD COUNT 8464238 LY % 24.8 % 5 Unknown COMPLETE BLOOD COUNT 1814004 MON % 12.8 % 5 Unknown COMPLETE BLOOD COUNT 0573521 EOS % 5.4 % 5 Unknown COMPLETE BLOOD COUNT 8321404 BASO % 0.6 % 5 Unknown COMPLETE BLOOD COUNT 2068472 RDW 13.2 % 5 Unknown COMPLETE BLOOD COUNT 3658322 ABS LUPE 2.99 10e9/L 015 Unknown COMPLETE BLOOD COUNT [id number] ABS LYMPH 1.31 10e9/L 015 Unknown COMPLETE BLOOD COUNT 7008953 ABS MONO 0.68 10e9/L 015 Unknown COMPLETE BLOOD COUNT [id number] ABS EOS 0.29 10e9/L 015 Unknown COMPLETE BLOOD COUNT [id number] ABS BASO 0.03 10e9/L 015 Unknown COMPLETE BLOOD COUNT [id number] RDW-SD 42.3 fL 5 Unknown LIPID GROUP 24744 HDL TEST 51 MG/DL 07/19/2012 Unknown LIPID GROUP 97600 TRIG 129 MG/DL 07/19/2012 Unknown LIPID GROUP 23514 TEST LDL 98 MG/DL 07/19/2012 Unknown LIPID GROUP 26225 CHOL 175 MG/DL 07/19/2012 Unknown LIPID GROUP 34307 RCHOL/HDL 3.43 RATIO 07/19/2012 Unknow n COMPREHENSIVE METABOLIC 16093 AST 18 U/L 2011 Unknown COMPREHENSIVE METABOLIC 92404 ALT 12 IU/L 2011 Unknown COMPREHENSIVE METABOLIC 53987 BUN 10 MG/DL 2011 Unknown COMPREHENSIVE METABOLIC 55240 ALBUMIN 4.1 GM/DL 2011 Unknown COMPREHENSIVE METABOLIC 70582 CHLORIDE 103 MMOL/L 07/19 Unknown COMPREHENSIVE METABOLIC 09818 BILI TOT 0.9 MG/DL 2011 Unknown COMPREHENSIVE METABOLIC 70047 ALK PHOS 62 U/L 2011 Unknown COMPREHENSIVE METABOLIC 86661 SODIUM 138 MMOL/L 07/19 Unknown COMPREHENSIVE METABOLIC 30268 CREATININE 1.08 MG/DL 10/2011 Unknown COMPREHENSIVE METABOLIC 54922 CALCIUM 9.1 MG/DL 2011 Unknown COMPREHENSIVE METABOLIC 93851 POTASSIUM 4.2 MMOL/L 07/19 Unknown COMPREHENSIVE METABOLIC 83204 PROT TOT 6.7 GM/DL 2011 Unknown COMPREHENSIVE METABOLIC 40010 Glucose 101 MG/DL 2011 Unknown COMPREHENSIVE METABOLIC 55908 BICARB 27 MMOL/L 2011 Unknown COMPREHENSIVE METABOLIC 96059 ANION GAP 8 MEQ/L 2011 Unknown GFR CALC [id number] GFR AA >60 ML/MIN 07/19/2012 Unknown GFR CALC [id number] GFR NON-AA >60 ML/MIN 07/19/2012 Unknown Procedures Procedure Codes Date ROUTINE VENIPUNCTURE CPT-4: 19796 09/30/2019 COMPREHEN METABOLIC PANEL CPT-4: 88736 09/30/2019 COMPLETE CBC W/AUTO DIFF WBC CPT-4: 72639 09/30/2019 ASSAY OF PSA TOTAL CPT-4: 45029 09/30/2019 ASSAY THYROID STIM HORMONE CPT-4: 07391 09/30/2019 LIPID PANEL CPT-4: 17312 09/30/2019 ROUTINE VENIPUNCTURE CPT-4: 53428 09/24/2019 COMPLETE CBC W/AUTO DIFF WBC CPT-4: 75440 09/24/2019 COMPREHEN METABOLIC PANEL CPT-4: 76905 09/24/2019 LIPID PANEL CPT-4: 04224 09/24/2019 ASSAY THYROID STIM HORMONE CPT-4: 61697 09/24/2019 THER/PROPH/DIAG INJ SC/IM CPT-4: 48243 01/13/2019 TRIAMCINOLONE ACET INJ NOS CPT-4: J3301 01/13/2019 DEXAMETHASONE SODIUM PHOS CPT-4: J1100 01/13/2019 ROUTINE VENIPUNCTURE CPT-4: 20725 09/04/2018 COMPREHEN METABOLIC PANEL CPT-4: 73693 09/04/2018 COMPLETE CBC W/AUTO DIFF WBC CPT-4: 84539 09/04/2018 LIPID PANEL CPT-4: 26669 09/04/2018 ASSAY OF PSA TOTAL CPT-4: 66390 09/04/2018 ASSAY THYROID STIM HORMONE CPT-4: 61754 09/04/2018 URINALYSIS NONAUTO W/O SCOPE CPT-4: 57974 05/15/2018 ROUTINE VENIPUNCTURE CPT-4: 80584 11/16/2017 A FRT/VG P CPT-4: 4039716 11/16/2017 A FOOD C P CPT-4: 7340458 11/16/2017 A NUTS PNL CPT-4: 6007324 11/16/2017 THER/PROPH/DIAG INJ SC/IM CPT-4: 43992 11/06/2017 TRIAMCINOLONE ACET INJ NOS CPT-4: J3301 11/06/2017 DEXAMETHASONE SODIUM PHOS CPT-4: J1100 11/06/2017 ROUTINE VENIPUNCTURE CPT-4: 05224 09/03/2017 ASSAY OF FREE THYROXINE CPT-4: 19955 09/03/2017 ASSAY THYROID STIM HORMONE CPT-4: 06407 09/03/2017 ASSAY TRIIODOTHYRONINE (T3) CPT-4: 97369 09/03/2017 ROUTINE VENIPUNCTURE CPT-4: 35617 07/31/2017 COMPREHEN METABOLIC PANEL CPT-4: 65526 07/31/2017 COMPLETE CBC W/AUTO DIFF WBC CPT-4: 66426 07/31/2017 LIPID PANEL CPT-4: 98738 07/31/2017 FLU VACC PRSV FREE INC ANTIG 65 AND OLDER CPT-4: 04062 07/04/2017 ADMIN INFLUENZA VIRUS VAC CPT-4: G0008 07/04/2017 ROUTINE VENIPUNCTURE CPT-4: 37167 02/26/2017 ASSAY THYROID STIM HORMONE CPT-4: 06223 02/26/2017 COMPREHEN METABOLIC PANEL CPT-4: 76361 02/26/2017 COMPLETE CBC W/AUTO DIFF WBC CPT-4: 69972 02/26/2017 LIPID PANEL CPT-4: 38964 02/26/2017 ASSAY OF PSA TOTAL CPT-4: 88207 02/26/2017 FLUZONE, 5ML (Medicare) CPT-4: Q2038 06/28/2016 ADMIN INFLUENZA VIRUS VAC CPT-4: G0008 06/28/2016 ROUTINE VENIPUNCTURE CPT-4: 89674 05/19/2016 ASSAY OF FREE THYROXINE CPT-4: 58771 05/19/2016 ASSAY THYROID STIM HORMONE CPT-4: 62948 05/19/2016 COMPREHEN METABOLIC PANEL CPT-4: 78598 05/19/2016 COMPLETE CBC W/AUTO DIFF WBC CPT-4: 99357 05/19/2016 LIPID PANEL CPT-4: 65261 05/19/2016 VITAMIN B-12 CPT-4: 76768 05/19/2016 PPPS, initial visit CPT-4: G0438 05/10/2016 ROUTINE VENIPUNCTURE CPT-4: 25514 04/05/2015 ASSAY THYROID STIM HORMONE CPT-4: 38571 04/05/2015 COMPREHEN METABOLIC PANEL CPT-4: 57026 04/05/2015 COMPLETE CBC W/AUTO DIFF WBC CPT-4: 11313 04/05/2015 LIPID PANEL CPT-4: 88235 04/05/2015 ASSAY OF PSA TOTAL CPT-4: 07095 04/05/2015 ROUTINE VENIPUNCTURE CPT-4: 25314 07/19/2012 COMPREHEN METABOLIC PANEL CPT-4: 68045 07/19/2012 LIPID PANEL CPT-4: 42243 07/19/2012 ELECTROCARDIOGRAM COMPLETE CPT-4: 08968 03/22/2012 Vital Signs Date Vital 09/24/2019 Blood Pressure 1: 125/72 Code: 8480-6 BMI: 19.8 Code: 19260-3 Heart Rate 1: 88 bpm Height: 5'11" [...] 1: 102/60 Code: 8480-6 BMI: 19.1 Code: 64966-8 Heart Rate 1: 82 bpm Height: 5'11" Respiratory Rate: 22 bpm SpO2: 97% Tempera ture: 36.4 (C) / 97.6 (F) Weight: 137 lbs 04/25/2018 Blood Pressure 1: 118/64 Code: 8480-6 BMI: 19.2 Code: 06918-9 Heart Rate 1: 98 bpm Height: 5'11" Respiratory Rate: 20 bpm SpO2: 99% Tempera ture: 36.4 (C) / 97.6 (F) Weight: 138 lbs 11/06/2017 Blood Pressure 1: 108/68 Code: 8480-6 BMI: 18.5 Code: 25531-9 Heart Rate 1: 68 bpm Height: 5'11" Respiratory Rate: 20 bpm SpO2: 96% Tempera ture: 36.8 (C) / 98.2 (F) Weight: 133 lbs 09/03/2017 Blood Pressure 1: 122/64 Code: 8480-6 BMI: 17.6 Code: 43880-4 Heart Rate 1: 90 bpm Height: 5'11" Respiratory Rate: 20 bpm SpO2: 98% Tempera ture: 36.4 (C) / 97.6 (F) Weight: 126 lbs 08/21/2017 Blood Pressure 1: 114/80 Code: 8480-6 BMI: 17.9 Code: 92605-0 Heart Rate 1: 80 bpm Height: 5'11" Respiratory Rate: 20 bpm SpO2: 95% Tempera ture: 36.6 (C) / 97.9 (F) Weight: 128 lbs 02/13/2017 Blood Pressure 1: 122/60 Code: 8480-6 BMI: 18.5 Code: 61129-6 Heart Rate 1: 76 bpm Height: 5'11" Respiratory Rate: 20 bpm SpO2: 96% Tempera ture: 36.9 (C) / 98.4 (F) Weight: 133 lbs 11/23/2016 Blood Pressure 1: 126/70 Code: 8480-6 BMI: 18.5 Code: 02505-2 Heart Rate 1: 100 bpm Height: 5'11" Respiratory Rate: 20 bpm SpO2: 96% Tempera ture: 37.1 (C) / 98.8 (F) Weight: 133 lbs 05/23/2016 Blood Pressure 1: 128/82 Code: 8480-6 BMI: 18.5 Code: 20235-5 Heart Rate 1: 88 bpm Height: 5'11" Respiratory Rate: 20 bpm Temperature: 36 .7 (C) / 98.0 (F) Weight: 133 lbs 05/10/2016 Blood Pressure 1: 146/70 Code: 8480-6 BMI: 18.5 Code: 21483-8 Heart Rate 1: 84 bpm Height: 5'11" Respiratory Rate: 20 bpm Temperature: 36 .7 (C) / 98.1 (F) Weight: 133 lbs 04/01/2015 Blood Pressure 1: 102/60 Code: 8480-6 BMI: 18.5 Code: 51758-2 Heart Rate 1: 64 bpm Height: 5'11" Respiratory Rate: 20 bpm Temperature: 36 .8 (C) / 98.2 (F) Weight: 133 lbs 01/13/2014 Blood Pressure 1: 124/78 Code: 8480-6 BMI: 19.8 Code: 40697-6 Heart Rate 1: 76 bpm Height: 5'11" Respiratory Rate: 20 bpm Temperature: 36 .8 (C) / 98.2 (F) Weight: 142 lbs 04/03/2012 Blood Pressure 1: 106/76 Code: 8480-6 BMI: 20.9 Code: 53189-4 Heart Rate 1: 84 bpm Height: 5'11" Respiratory Rate: 20 bpm Temperature: 36 .7 (C) / 98.0 (F) Weight: 150 lbs 12/20/2011 Blood Pressure 1: 116/60 Code: 8480-6 BMI: 20.1 Code: 31266-1 Heart Rate 1: 80 bpm Height: 5'11" Respiratory Rate: 20 bpm Temperature: 36 .4 (C) / 97.6 (F) Weight: 144 lbs 10/24/2011 Blood Pressure 1: 132/74 Code: 8480-6 BMI: 19.7 Code: 37636-8 Heart Rate 1: 96 bpm Height: 5'11" [...] 11/23/2016 injection(s) 06/28/2016 Influenza follow up 05/23/2016 fwup lab draw 05/19/2016 high blood pressure 05/10/2016 lab draw 04/05/2015 follow up 04/01/2015 follow up 01/13/2014 [facility] 2012 lab draw 07/19/2012 follow up 04/03/2012 S/P stent placement in LAD, changed effient to plavix hip pain 12/20/2011 dyskinesia or tremor 10/24/2011 follow up 03/13/2011 started on effient, zocor, and atenolol follow up 02/20/2011 [facility]/Dr Christian rojas follow up 02/23/2010 [facility], appt with Dr Bajwa 03/22/10 insomnia 01/12/2010 problems falling and staying asleep, takes nortriptyline Encounters Encounter Performer Location Codes Date ([id number]) OFFICE/OUTPATIENT VISIT EST Diagnosis: Essential tremor[ICD10: G25.0] [facility]: 48924 12/24/2019 ([id number]) NURSE/OUTPATIENT VISIT EST Diagnosis: Essential (primary) hypertension[ICD10: I10] Diagnosis: Mixed hyperlipidemia[ICD10: E78.2] Diagnosis: Encounter for screening for malignant neoplasm of prostate[ICD10: Z12.5] Vonnie MATHEWS [facility] CPT-4: 12742 09/30/2019 ([id number]) OFFICE/OUTPATIENT VISIT EST Diagnosis: Encounter for therapeutic drug level monitoring[ICD10: Z51.81] Diagnosis: Essential tremor[ICD10: G25.0] Verna MATHEWS DO [facility] CPT-4: 87544 09/24/2019 ([id number]) OFFICE/OUTPATIENT VISIT EST Diagnosis: Noninfective gastroenteritis and colitis, unspecified[ICD10: K52.9] Diagnosis: Hemorrhage of anus and rectum[ICD10: K62.5] [facility]: 04370 05/26/2019 ([id number]) OFFICE/OUTPATIENT VISIT EST Diagnosis: Other intervertebral disc degeneration, 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] Diagnosis: Other forms of dyspnea[ICD10: R06.09] [facility] CPT-[facility]: 40213 03/17/2019 OFFICE/OUTPATIENT VISIT EST Diagnosis: Other intervertebral disc degeneration, 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] Diagnosis: Other symptoms and signs involving the musculoskeletal system[ICD10: R29.898] Vonnie MATHEWS [facility] CPT-4: 91229 02/18/2019 ([id number]) OFFICE/OUTPATIENT VISIT EST Diagnosis: Other allergic rhinitis[ICD10: J30.89] Akilah Lopez DOLLY HUBERT [facility] CPT-4: 46821 01/13/2019 ([id number]) NURSE/OUTPATIENT VISIT EST Diagnosis: Mixed hyperlipidemia[ICD10: E78.2] Diagnosis: Essential (primary) hypertension[ICD10: I10] Diagnosis: Encounter for screening for malignant neoplasm of prostate[ICD10: Z12.5] Diagnosis: Encounter for general adult medical examination with abnormal findings[ICD10: Z00.01] Diagnosis: Benign prostatic hyperplasia without lower urinary tract symptoms[ICD10: N40.0] Vonnie MATHEWS DO [email or web address] CPT-4: 97616 09/04/2018 ([id number]) OFFICE/OUTPATIENT VISIT EST Diagnosis: Otorrhea, left ear[ICD10: H92.12] Diagnosis: Impacted cerumen, right ear[ICD10: H61.21] Verna MATHEWS DO [email or web address] CPT-4: 57462 09/03/2018 ([id number]) OFFICE/OUTPATIENT VISIT EST Diagnosis: Other intervertebral disc degeneration, 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] Diagnosis: Primary insomnia[ICD10: F51.01] Diagnosis: Essential tremor[ICD10: G25.0] Vonnie MATHEWS [employer] [facility] CPT-4: 56740 08/26/2018 ([id number]) OFFICE/OUTPATIENT VISIT EST Diagnosis: Pelvic and perineal pain[ICD10: R10.2] Verna MATHEWS [employer] CPT-4: 86847 05/15/2018 ([id number]) OFFICE/OUTPATIENT VISIT EST Diagnosis: Encounter for therapeutic drug level monitoring[ICD10: Z51.81] Diagnosis: Acute sinusitis, unspecified[ICD10: J01.90] Diagnosis: Other intervertebral disc degeneration, 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] Diagnosis: Essential tremor[ICD10: G25.0] Diagnosis: Raynaud's syndrome without gangrene[ICD10: I73.00] Verna MATHEWS [employer] CPT-4: 43808 04/25/2018 ([id number]) OFFICE/OUTPATIENT VISIT EST Diagnosis: Idiopathic urticaria[ICD10: L50.1] Diagnosis: Other urticaria[ICD10: L50.8] Vonnie MATHEWS [employer] CPT-4: 64784 11/16/2017 ([id number]) OFFICE/OUTPATIENT VISIT EST Diagnosis: Idiopathic urticaria[ICD10: L50.1] Diagnosis: Other urticaria[ICD10: L50.8] Diagnosis: Other forms of dyspnea[ICD10: R06.09] Vonnie Reid MATHEWS [employer] CPT-4: 02950 11/06/2017 ([id number]) OFFICE/OUTPATIENT VISIT EST Diagnosis: Dyspnea, unspecified[ICD10: R06.00] Diagnosis: Abnormal weight loss[ICD10: R63.4] Vonniejuan jose LAIPATI MATHEWS [employer] [facility] CPT-4: 71124 09/03/2017 ([id number]) OFFICE/OUTPATIENT VISIT EST 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] Diagnosis: Mixed hyperlipidemia[ICD10: E78.2] Diagnosis: Essential tremor[ICD10: G25.0] Diagnosis: Essential (primary) hypertension[ICD10: I10] Diagnosis: Abnormal weight loss[ICD10: R63.4] Vonnie Romulojuan miguel ASCENCIOJOVANNY MATHEWS [employer] CPT-4: 82524 08/21/2017 ([id number]) OFFICE/OUTPATIENT VISIT EST Diagnosis: Mixed hyperlipidemia[ICD10: E78.2] Diagnosis: Essential (primary) hypertension[ICD10: I10] 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] Diagnosis: Anemia, unspecified[ICD10: D64.9] Vonnie Galarza Denia BOW[facility] [employer] CPT-4: 89804 07/31/2017 ([id number]) OFFICE/OUTPATIENT VISIT EST Diagnosis: FLU VACCINE[ICD10: Z23] Vonnie Mathews VONNIE Denia [facility] [employer] CPT-4: 11975 07/04/2017 ([id number]) OFFICE/OUTPATIENT VISIT EST Diagnosis: Mixed hyperlipidemia[ICD10: E78.2] Diagnosis: Essential tremor[ICD10: G25.0] 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] Diagnosis: Essential (primary) hypertension[ICD10: I10] Diagnosis: Supraventricular tachycardia[ICD10: I47.1] Diagnosis: Other fatigue[ICD10: R53.83] Diagnosis: Encounter for screening for malignant neoplasm of prostate[ICD10: Z12.5] Vonnie MATHEWS DO [facility] CPT-4: 64631 02/26/2017 ([id number]) OFFICE/OUTPATIENT VISIT EST Diagnosis: Essential tremor[ICD10: G25.0] Vonnie MATHEWS DO [facility] CPT-4: 22768 02/13/2017 ([id number]) OFFICE/OUTPATIENT VISIT EST Diagnosis: Essential tremor[ICD10: G25.0] Diagnosis: Other intervertebral disc degeneration, 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] Vonnie MATHEWS DO [facility] CPT-4: 84496 11/23/2016 ([id number]) OFFICE/OUTPATIENT VISIT EST Diagnosis: FLU VACCINE[ICD10: Z23] Vonnie GERMAN DO [facility] CPT-4: 94319 06/28/2016 OFFICE/OUTPATIENT VISIT EST Diagnosis: Open bite of right hand, initial encounter[ICD10: S61.451A] Vonnie MATHEWS DO [facility] CPT-4: 19506 05/23/2016 ([id number]) OFFICE/OUTPATIENT VISIT EST Diagnosis: Encounter for general adult medical examination with abnormal findings[ICD10: Z00.01] Diagnosis: Mixed hyperlipidemia[ICD10: E78.2] Diagnosis: Essential tremor[ICD10: G25.0] 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] Vonnie MATHEWS DO [facility] CPT-4: 00326 05/19/2016 ([id number]) OFFICE/OUTPATIENT VISIT EST Diagnosis: HYPERLIPIDEMIA NEC/NOS[ICD9: 272.4] Diagnosis: CAD[ICD9: 414.00] Diagnosis: TACHYCARDIA[ICD9: 785.0] Diagnosis: HYPERTENSION[ICD9: 401.9] Diagnosis: Routine medical exam[ICD9: V70.0] Vonnie MATHEWS DO [facility] CPT-4: 53047 04/05/2015 ([id number]) OFFICE/OUTPATIENT VISIT EST Diagnosis: HYPERTENSION[ICD9: 401.9] Diagnosis: HYPERLIPIDEMIA NEC/NOS[ICD9: 272.4] Diagnosis: CAD[ICD9: 414.00] Diagnosis: LUMB/LUMBOSAC DISC DEGEN[ICD9: 722.52] Vonnie GASPAR SKim SCHULTZNDER [facility] CPT-4: 49497 04/01/2015 ([id number]) OFFICE/OUTPATIENT VISIT EST Diagnosis: CHEST PAIN NOS[ICD9: 786.50] Diagnosis: PAIN IN THORACIC SPINE[ICD9: 724.1] Diagnosis: HYPERTENSION[ICD9: 401.9] Diagnosis: GERD[ICD9: 530.81] Vonnie SCHULTZNDER [facility] CPT-4: 07271 01/13/2014 ([id number]) OFFICE/OUTPATIENT VISIT EST Diagnosis: CAD[ICD9: 414.00] Diagnosis: HYPERLIPIDEMIA NEC/NOS[ICD9: 272.4] Vonnie ANAN SKim [facility] CPT-[facility]: 67954 07/19/2012 ([id number]) OFFICE/OUTPATIENT VISIT EST Diagnosis: CAD[ICD9: 414.00] Diagnosis: INSOMNIA NOS[ICD9: 780.52] Vonnie MaciasKim OR YULISA [facility] CPT-4: 01382 04/03/2012 ([id number]) OFFICE/OUTPATIENT VISIT EST Diagnosis: CHEST PAIN NOS[ICD9: 786.50] Diagnosis: CAD[ICD9: 414.00] Vonnie SCHULTZNDER [facility] CPT-4: 87156 03/22/2012 ([id number]) OFFICE/OUTPATIENT VISIT EST Diagnosis: PROSTATITIS[ICD9: 601.9] Diagnosis: TREMOR NEC[ICD9: 333.1] Vonnie SCHULTZND ER [facility] CPT-4: 40167 12/20/2011 OFFICE/OUTPATIENT VISIT EST Diagnosis: TREMOR NEC[ICD9: 333.1] Diagnosis: TACHYCARDIA[ICD9: 785.0] Diagnosis: HYPERTENSION[ICD9: 401.9] Vonnie ASCENCIOLINE GilbertoKim ORE NDER [facility] CPT-4: 64676 10/24/2011 OFFICE/OUTPATIENT VISIT EST Vonnie MaciasKim ROMULO NDER [facility] CPT- 4: 31357 03/13/2011 ([id number]) OFFICE/OUTPATIENT VISIT [facility] CPT-4: 32353 02/20/2011 ([id number]) OFFICE/OUTPATIENT VISIT, [facility] CPT-4: 21302 02/23/2010 ([id number]) OFFICE/OUTPATIENT VISIT, [facility] CPT-4: 17820 01/12/2010 Plan of Care Planned Activity Notes Codes Status Date Visit Diagnosis Plan: Essential tremor Discussion: Sta ble on clonazepam Fwup in 3mos with fasting lab ICD-9 : 333.1 ICD-10 : G25.0 12/24/2019 Patient Education: Cathryn HFA- [employer] Coupon [id number] [email or web address] Completed 12/24/2019 Appointment: Vonnie Mathews WPtel: [phone] [facility] US LAB 09/30/2019 Appointment: Verna Ramirez [facility] [employer] [address] RESCHEDULED 09/25/2019 Visit Diagnosis Plan: Essential tremor Discussion: sta ble on clonazepam. educated patient about purchasing a large, heavy pen that will allow him to improve his writing. instructed him that pens can be purchased on [employer]. ICD-9 : 333.1 ICD-10 : G25.0 09/24/2019 Visit Diagnosis Plan: Encounter for therapeutic drug l evel monitoring Discussion: UDS and contract completed today. ICD-9 : V58.83 ICD-10 : Z51.81 09/24/2019 Appointment: Verna Ramirez [address] [employer] [id number] MEDICATION REVIEW 09/24/2019 Visit Diagnosis Plan: Hemorrhage of anus and rectum Di scussion: Update colonoscopy ICD-9 : 569.3 ICD-10 : K62.5 05/26/2019 Visit Diagnosis Plan: Noninfective gastroenteritis and colitis, unspecified Discussion: Flagyl Eddy diet Update colonoscopy ICD-9 : 558.9 ICD-10 : K52.9 05/26/2019 Appointment: Vonnie Mathewstel: [address] [place], [place] [phone] [place] record request faxed 05/23; ANGELINA with medical records 05/26/19 Hospital Follow Up 05/26/2019 Care Plan: Referral Order SNOMED-CT : [id number] Pending 05/26/2019 Visit Diagnosis Plan: Other intervertebral disc degene ration, lumbar region Discussion: Increase lyrica to 150mg po q HS Continue stretches from PT [facility] Fwup after that appointment ICD-9 : 722.52 ICD-10 : M51.36 03/17/2019 Appointment: Vonnie Mathews WPtel: [address] [place], [place] [id number] [place] FOLLOW UP 03/17/2019 Visit Diagnosis Plan: Other intervertebral disc degene ration, lumbar region Discussion: Start PT Referral for epidural Will start lyrica 75mg po q HS once CT scan results obtained [facility] Follow Up: 3 weeks ICD-9 : 722.52 [...] : R29.898 02/18/2019 Appointment: Vonnie Mathews WPtel: [address] [place], [place] [phone] [place] FOLLOW UP 02/18/2019 Appointment: Vonnie Mathews WPtel: [address] [place], [place] [phone] [place] CANCELED 02/18/2019 Visit Diagnosis Plan: Other [...] J30.89 01/13/2019 Appointment: Akilah Lopez [address] Due for annual wellness ACUTE ILLNESS 01/14/20 Appointment: Vonnie Mathews WPtel: [address] [place] [address] US LAB 09/04/2018 Visit Diagnosis Plan: Impacted [...] : H92.12 09/03/2018 Appointment: Verna Ramirez [address] ACUTE ILLNESS 09/03/2018 Visit Diagnosis Plan: [...] : M51.36 08/26/2018 Appointment: Vonnie Mathews WPtel: [address] [place] [address] US FOLLOW UP 08/26/2018 Visit Diagnosis Plan: [...] ICD-10 : R10.2 05/15/2018 Appointment: Verna Ramirez [address] [place], [place] [id number] ACUTE ILLNESS 05/15/2018 Patient Education: Patient Medication Summary Completed 05/15/2018 Care Plan: US EXAM PELVIC COMPLETE scrotal LOINC : 98619-8 Pending 05/15/2018 Visit Diagnosis Plan: Other intervertebral [...] ICD-10 : J01.90 04/25/2018 Appointment: Verna Ramirez [address] [place], [place] [phone] MEDICATION REVIEW 04/25/2018 Patient Education: Patient Medication Summary Completed 04/25/2018 Appointment: Vonnie Mathews WPtel: [phone] [phone] 11/16/2017 Patient Education: Patient Medication Summary Completed [...] : L50.1 11/06/2017 Appointment: Vonnie Mathews WPtel: [address] [place] [address] FOLLOW UP 11/06/2017 Patient Education: Patient Medication [...] : R06.00 09/03/2017 Appointment: Vonnie Mathews WPtel: [address] [place], [place] [phone] FOLLOW UP 09/03/2017 Patient Education: Patient Medication Summary Completed 09/03/2017 Visit Diagnosis Plan: Essential tremor Discussion: Sta ble on Primidone ICD-9 : 333.1 ICD-10 : G25.0 08/21/2017 Visit Diagnosis Plan: Atherosclerotic he art disease of cherokee coronary artery without angina pectoris Discussion: Sees [...] : E78.2 08/21/2017 Appointment: Vonnie Mathews WPtel: [address] [place], [place] [phone] US FOLLOW UP 08/21/2017 Patient Education: Patient Medication Summary Completed 08/21/2017 Appointment: Vonnie Mathews WPtel: [address] [place], [place] [phone] US LAB 07/31/2017 Patient Education: Patient Medication Summary Completed 07/31/2017 Appointment: Vonnie Mathews WPtel: [address] [place], [place] [phone] US INJECTION 07/04/2017 Patient Education: Patient Medication Summary Completed 07/04/2017 Appointment: Vonnie Mathews WPtel: [address] [place], [place] [phone] US LAB 02/26/2017 Patient Education: Patient Medication Summary Completed 02/26/2017 Visit Diagnosis Plan: Essential tremor Discussion: Con tinue clonazepam at 1mg q AM and primidone 50mg q HS Follow Up: 3 months ICD-9 : 333.1 ICD-10 : G25.0 02/13/2017 Appointment: Vonnie Mathews WPtel: [address] [place], [place] [phone] US 02/08 confirmed~sl FOLLOW UP 02/13/2017 Patient Education: Patient Medication Summary Completed 02/13/2017 Appointment: Vonnie Mathews WPtel: [address] [place], [place] [phone] [place] RESCHEDULED 01/23/2017 Visit Diagnosis Plan: Other intervertebral disc degene ration, lumbar region Discussion: DC oxycodone Tramadol 50mg 1-2 po TID prn pain Follow Up: 2 months ICD-9 : 722.52 ICD-10 : M51.36 11/23/2016 Visit Diagnosis Plan: Essential tremor Discussion: Inc rease clonazepam to 1mg po BID Discussed sinemet ICD-9 : 333.1 ICD-10 : G25.0 11/23/2016 Appointment: Vonnie Mathews WPtel: [address] [place], [place] [phone] 3 confirmed~sl MEDICATION REVIEW 11/23/2016 Patient Education: Patient Medication Summary Completed 11/23/2016 Patient Education: [facility] [employer] - Clonazepam - 18-64 - Dynamic Portal ID Completed 11/23/2016 Appointment: Vonnie Mathews WPtel: [address] [place], [place] [phone] INJECTION 06/28/2016 Patient Education: Patient Medication Summary Completed 06/28/2016 Referral: Fernando Day WPtel: #1 [facility] [id number] per Maribeth, the patient is sched [...] if worsening 05/23/2016 Appointment: Vonnie Mathews WPtel: [address] [place], [place] [phone] ER Follow UP 05/23/2016 Patient Education: Patient Medication Summary Completed 05/23/2016 Appointment: Vonnie Mathews WPtel: [address] [place], [place] [phone] US LAB 05/19/2016 Patient Education: Patient Medication Summary Completed 05/19/2016 Visit Plan: Change coreg to 3.125mg BID Trial of low dose clonazepam 0.5mg BID for tremors Fwup with Dr. Rmasey as scheduled Return for fasting lab--CBC, CMP, TSH, free T4, Lipids, PSA, B12 Proceed with Colonoscopy 05/10/2016 Appointment: Vonnie Mathewstel: [address] [place], [place] [phone] 05/09 confirmed~sl Annual Well Visit 05/10/2016 Patient Education: Patient Medication Summary Completed 05/10/2016 Care Plan: Referral Order SNOMED-CT : 30 [id number] Pending 05/10/2016 Appointment: Vonnie Mathews WPtel: [address] [place] [address] [place] Rescheduled for 05/10/16 at 2PM~lb RESCHEDULED 04/26/2016 Referral: [id number] US Referral Initiated 04/29/2015 Appointment: Vonnie Mathews WPtel: [address] [place], [place] [phone] LAB 04/05/2015 Patient Education: Patient Medication Summary Completed 04/05/2015 Visit Plan: Return in AM for fasting lab --CMP, lipids, CBC, TSH, PSA Change hydrocodone to oxycodone 7.5/325mg 1-2 po TID Schedule with cardiology Needs colonoscopy once cardiology evaluation complete Will need to restart chol meds after lab Recheck 1mo on pain meds 04/01/2015 Appointment: Vonnie Mathews WPtel: [address] [place], [place] [phone] 03/31 confirmed -mf PHYSICAL 04/01/2015 Patient Education: Patient Medication Summary Completed 04/01/2015 Appointment: Vonnie Mathewstel: [address] [place], [place] [phone] Annual Well Visit 09/23/2014 Visit Plan: Continue protonix Pt has fwu p with Card next month Rec chiropracter or PT for ribs/thoracics being out and could be contributing to chest pain 01/13/2014 Appointment: Vonnie Mathews WPtel: [address] [place], [place] [phone] [place] FOLLOW UP 01/13/2014 Patient Education: Patient Medication Summary Completed 01/13/2014 Appointment: Ariella Mcnally WPtel: [address] [place], [place] [phone] US FOLLOW UP 12/12/2013 Appointment: Malika Cárdenas WPtel: [address] [place], [place] [phone] US PHYSICAL 12/12/2013 Appointment: Vonnie Mathews WPtel: [address] [place] [address] ACUTE ILLNESS 02/20/2013 Appointment: Vonnie Mathews WPtel: [address] [place] [address] LAB 07/19/2012 Patient Education: Patient Medication Summary Completed 07/19/2012 Appointment: Vonnie Mathews WPtel: [address] [place] [address] FOLLOW UP 04/03/2012 Patient Education: Patient Medication Summary Completed 04/03/2012 Appointment: Vonnie Mathews WPtel: [address] [place], [place] [phone] ACUTE ILLNESS 03/22/2012 Patient Education: Patient Medication Summary Completed 03/22/2012 Appointment: Vonnie Mathews WPtel: [address] [place], [place] [phone] FOLLOW UP 12/26/2011 Visit Plan: Add Cipro Continue current m eds 12/20/2011 Appointment: Vonnie Mathews WPtel: [address] [place] [address] ACUTE ILLNESS 12/20/2011 Patient Education: Patient Medication Summary Completed 12/20/2011 Visit Plan: Change neurontin to Cymbalta 30mg for 1wk then 60mg QD Add Propranolol for tremor 10/24/2011 Appointment: Vonnie Mathews WPtel: [address] [place], [place] [id number] ACUTE ILLNESS 10/24/2011 Appointment: Vonnie Mathews WPtel: [address] [place], [place] [id number] ACUTE ILLNESS 10/24/2011 Patient Education: Patient Medication Summary Completed 10/24/2011 Visit Plan: Continue current meds and fw up with Card as scheduled 03/13/2011 Appointment: Vonnie Mathews WPtel: [address] [place] [address] FOLLOW UP 03/13/2011 Patient Education: Patient Medication Summary Completed 03/13/2011 Visit Plan: Will obtain all records and lab from [facility] Discussed will likely need heart cath which pt states that Card did talk to him about in the hospital 02/20/2011 Appointment: Vonnie Mathews WPtel: [address] [place] [address] ACUTE ILLNESS 02/20/2011 Patient Education: Patient Medication Summary Completed 02/20/2011 Visit Plan: Cont Pepcid and Prilosec See Card for cardiac cath. 02/23/2010 Appointment: Vonnie Mathews WPtel: [address] [place], [place] [id number] [place] FOLLOW UP 02/23/2010 Patient Education: Patient Medication Summary Completed 02/23/2010 Visit Plan: Increase Pamelor to 75mg qhs Increase Hydrocodone to 10/325mg 1-2 po q6 prn 01/12/2010 Appointment: Vonnie Mathews WPtel: [address] [place], [place] [id number] ACUTE ILLNESS 01/12/2010 Patient Education: Patient Medication Summary Completed 01/12/2010 Referral: Iván Pardo WPtel: [facility] [address], [id number] Referral Initiated Referral: Fernando Day WPtel: #1 [facility] [place] [employer] [id number] [place] Referral Completed Referral: Fernando Day WPtel: #1 [facility] [place] [employer] [id number] [place] Referral Appointment Requested Instructions Comment . [...]
--- OUTSIDE RECORDS SUMMARY | 2020-02-10 08:10 | XMS REPORT | CCD ---
Author Author Nash Mathews D.O. Organization [facility] Address [address] [place] [address] Phone Care Team Providers Care Assistant Manager/Embalmer Name Role Phone Vonnie Mathews D.O., PP Unavailable CCM Unavailable Summary Purpose Interface Exchange Insurance Providers Payer name Policy type / Coverage type Covered republican ID Effective Begin Date Effective End Date A[employer]NA MEDICARE Medicare Part B [id number] 2019 Unknown Family History Family History data not found Social History Social History Element Codes Description Effective Dates Marital status Unknown 10/24/[address]: 309994723 Nonsmoker 03/29/2011 Allergies, Adverse Reactions, Alerts Substance [...] R63.4 08/21/2017 Active 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: [...] ProAir HFA 90 mcg/actuation aerosol inhaler RxNorm: 494674 2 Puff(s) Inhalation four times a day as needed 12/24/2019 No Stop Date Active Zyrtec 10 mg capsule RxNorm: 8728967 1 Capsule(s) Oral QD 0 No Stop Date Active clonazepam 1 mg tablet RxNorm: 006716 TAKE 1 TABLET BY MOUTH EV SUSAN MORNING 12/19/2019 01/17/2020 Active clonazepam 1 mg tablet RxNorm: 173883 TAKE 1 TABLET BY MOUTH EV SUSAN MORNING 11/17/2019 12/16/2019 Inactive Tamiflu 75 mg capsule RxNorm: 462987 1 Capsule(s) Oral QD 11/03/2019 11/12/2019 Inactive Tamiflu 75 mg capsule RxNorm: 308883 1 Capsule(s) Oral QD 11/03/2019 11/02/2019 Inactive clonazepam 1 mg tablet RxNorm: 184541 TAKE 1 TABLET BY MOUTH EV SUSAN MORNING 10/16/2019 11/13/2019 Inactive pravastatin 20 mg tablet RxNorm: 580860 1 Tablet(s) Oral QD 020 04/06/2020 Active Singulair 10 mg tablet RxNorm: 441218 TAKE 1 TABLET BY MOUTH EV SUSAN DAY 10/10/2019 12/24/2019 Inactive Lyrica 75 mg capsule RxNorm: 680074 1 Capsule(s) Oral every ht at bedtime 10/09/2019 01/07/2020 Active clonazepam 1 mg tablet RxNorm: 328206 TAKE 1 TABLET BY MOUTH EV SUSAN AM 09/23/2019 10/15/2019 Inactive clonazepam 1 mg tablet RxNorm: 497050 TAKE 1 TABLET BY MOUTH EV SUSAN AM 08/21/2019 09/22/2019 Inactive Singulair 10 mg tablet RxNorm: 406355 TABLET(S) 1 TABLET(S) PO QD 1 10/09/2019 Inactive Flagyl 500 mg tablet RxNorm: 826308 1 Tablet(s) PO TID 05/26/2019 Inactive clonazepam 1 mg tablet RxNorm: 614074 TAKE 1 TABLET BY MOUTH EV SUSAN MORNING 05/23/2019 06/21/2019 Inactive pravastatin 20 mg tablet RxNorm: 829882 1 Tablet(s) PO QD 04/14/2019 10/09/2019 Inactive Needs updated fasting labs Singulair 10 mg tablet RxNorm: 076031 Tablet(s) 1 TABLET(S) PO QD 0 04/14/2019 07/12/2019 Inactive clonazepam 1 mg tablet RxNorm: 699840 1 Tablet(s) PO QAM 02/21/2019 0 05/23/2019 Inactive Bevespi Aerosphere 9 mcg-4.8 mcg HFA aerosol inhaler RxNorm: 0046735 2 Puff(s) INH BID 02/19/2019 12/23/2019 Inactive ProAir HFA 90 mcg/actuation aerosol inhaler RxNorm: 418913 2 Puff(s) INH Q4H as needed 02/19/2019 09/24/2019 Inactive metoprolol tartrate 25 mg tablet RxNorm: 973165 1/2 Tablet(s) PO BI D 02/18/2019 05/18/2019 Inactive pravastatin 20 mg tablet RxNorm: 493065 1 Tablet(s) PO QD Needs updated fasting labs 01/13/2019 04/14/2019 Inactive Needs updated fa sting labs Singulair 10 mg tablet RxNorm: 055490 Tablet(s) 1 TABLET(S) PO QD 0 01/13/2019 04/12/2019 Inactive Plavix 75 mg tablet RxNorm: 731771 Tablet(s) 1 TABLET(S) PO QD 04/201906/20/2019 Inactive [SAVINGS FOR NON-COVERED SHANDA GS -- BIN:612744, PCN: ASPROD1, Group: XXXXX, ID# [id number], Questions: . THIS IS NOT INSURANCE.] Singulair 10 mg tablet RxNorm: 855616 1 TABLET(S) PO QD 10/29/2018 Inactive primidone 50 mg tablet RxNorm: 740545 2 TABLET(S) PO BI D TAKE 2 TABLETS BY MOUTH EVERY NIGHT AT BEDTIME 10/07/2018 01/12/2019 Inactive Patient requests 90 days supply pravastatin 20 mg tablet RxNorm: 697837 1 TABLET(S) PO QD 09/23/2018 01/12/2019 Inactive clonazepam 1 mg tablet RxNorm: 210461 1 Tablet(s) PO QAM 09/19/2018 0 12/17/2018 Inactive primidone 50 mg tablet RxNorm: 778983 TABLET(S) TAKE 2 TABLETS BY MOUTH EVERY NIGHT AT BEDTIME 09/18/2018 01/12/2019 Inactive ciprofloxacin 0.2 % ear drops in a dropperette RxNorm: 85376 6 2 Drop(s) left otic (ear) BID 09/03/2018 09/09/2018 Inactive primidone 50 mg tablet RxNorm: 354588 2 Tablet(s) PO BI D TAKE 2 TABLETS BY MOUTH EVERY NIGHT AT BEDTIME 08/26/2018 10/06/2018 Inactive Ambien 5 mg tablet RxNorm: 457368 TAKE 1 TABLET BY MOUTH EVERY NIGHT AT BEDTIME 08/05/2018 09/03/2018 Inactive Singulair 10 mg tablet RxNorm: 565595 1 TABLET(S) PO QD 07/23/2018 Inactive clonazepam 1 mg tablet RxNorm: 218161 TAKE 1 TABLET BY MOUTH EV SUSAN MORNING 07/23/2018 08/21/2018 Inactive Plavix 75 mg tablet RxNorm: 681180 1 TABLET(S) PO QD 07/04/201812/22 Inactive [SAVINGS FOR NON-COVERED DRUGS -- BIN:00 3585, PCN: ASPROD1, Group: XXXXX, ID# [id number], Questions: . THIS IS NOT INSURANCE.] clonazepam 1 mg tablet RxNorm: 050008 TAKE 1 TABLET BY MOUTH EV SUSAN MORNING 06/25/2018 07/23/2018 Inactive clonazepam 1 mg tablet RxNorm: 597247 TAKE 1 TABLET BY MOUTH EV SUSAN MORNING 05/23/2018 06/21/2018 Inactive primidone 50 mg tablet RxNorm: 810872 Tablet(s) TAKE 2 TABLETS BY MOUTH EVERY NIGHT AT BEDTIME 05/16/2018 08/25/2018 Inactive oxycodone-acetaminophen 7.5 mg-325 mg tablet RxNorm: 7210676 1-2 Tablet(s) PO TID as needed 04/25/2018 05/24/2018 Inactive Singulair 10 mg tablet RxNorm: 074936 1 Tablet(s) PO QD 04/25/2018 Inactive Medrol (Jose) 4 mg tablets in a dose pack RxNorm: 947071 Tablet(s) PO take as directed 04/25/2018 09/02/2018 Inactive clonazepam 1 mg tablet RxNorm: 712185 TAKE 1 TABLET BY MOUTH EV SUSAN MORNING 04/24/2018 05/22/2018 Inactive Plavix 75 mg tablet RxNorm: 592633 1 TABLET(S) PO QD 04/04/201807/02 Inactive [SAVINGS FOR NON-COVERED DRUGS -- BIN:00 3585, PCN: ASPROD1, Group: XXXXX, ID# [id number], Questions: . THIS IS NOT INSURANCE.] pravastatin 20 mg tablet RxNorm: 342705 1 Tablet(s) PO QD 03/21/2018 09/16/2018 Inactive ProAir HFA 90 mcg/actuation aerosol inhaler RxNorm: 625114 2 Puff(s) INH Q4H as needed 03/18/2018 03/17/2018 Inactive tamsulosin 0.4 mg capsule RxNorm: 736705 1 CAPSULE(S) PO QD 018 01/12/2019 Inactive clonazepam 1 mg tablet RxNorm: 459047 1 Tablet(s) PO QAM 02/25/2018 0 04/25/2018 Inactive tamsulosin 0.4 mg capsule RxNorm: 461888 1 Capsule(s) PO QD 018 03/13/2018 Inactive tamsulosin 0.4 mg capsule RxNorm: 582821 1 Capsule(s) PO QD 018 02/03/2018 Inactive tamsulosin 0.4 mg capsule RxNorm: 815103 1 Capsule(s) PO QD 018 02/12/2018 Inactive Ambien 5 mg tablet RxNorm: 938863 Tablet(s) TAKE 1 TAB LET BY MOUTH EVERY NIGHT AT BEDTIME 01/24/2018 08/05/2018 Inactive primidone 50 mg tablet RxNorm: 181356 Tablet(s) TAKE 2 TABLETS BY MOUTH EVERY NIGHT AT BEDTIME 01/18/2018 05/16/2018 Inactive cyclobenzaprine 10 mg tablet RxNorm: 139177 1 Tablet(s) PO TID as needed for muscle spasm 01/11/2018 02/09/2018 Inactive [SAVINGS FOR NON -COVERED DRUGS -- BIN:233128, N: ASPROD1, Group: XXXXX, ID# [id number], Questions: . THIS IS NOT INSURANCE.] clonazepam 1 mg tablet RxNorm: 388616 1 Tablet(s) PO QAM 12/24/2017 0 02/21/2018 Inactive prednisone 20 mg tablet RxNorm: 217590 1 Tablet(s) PO QD 11/06/2017 0 11/10/2017 Inactive EpiPen 2-Jose 0.3 mg/0.3 mL injection, auto-injector RxNorm: 322533 1 Unit Dose IM as needed 11/06/2017 09/24/2019 Inactive ProAir HFA 90 mcg/actuation aerosol inhaler RxNorm: 265914 2 Puff(s) INH Q4H as needed 10/30/2017 03/17/2018 Inactive primidone 50 mg tablet RxNorm: 520167 TAKE 2 TABLETS BY MOUTH EVERY NIGHT AT BEDTIME 10/15/2017 01/17/2018 Inactive Plavix 75 mg tablet RxNorm: 414121 1 Tablet(s) PO QD 10/01/201703/29 Inactive [SAVINGS FOR NON-COVERED DRUGS -- BIN:00 3585, PCN: ASPROD1, Group: XXXXX, ID# [id number], Questions: . THIS IS NOT INSURANCE.] clonazepam 1 mg tablet RxNorm: 398183 1 Tablet(s) PO QAM 09/19/2017 0 12/16/2017 Inactive primidone 50 mg tablet RxNorm: 953066 2 Tablet(s) PO QHS 08/29/2017 0 01/18/2018 Inactive oxycodone-acetaminophen 7.5 mg-325 mg tablet RxNorm: 2273776 1-2 Tablet(s) PO TID as needed 08/22/2017 09/19/2017 Inactive pravastatin 20 mg tablet RxNorm: 987553 1 Tablet(s) PO QD 08/21/2017 03/21/2018 Inactive carvedilol 3.125 mg tablet RxNorm: 378618 1 Tablet(s) P O BID to replace 6.25mg dose 08/21/2017 09/02/2017 Inactive primidone 50 mg tablet RxNorm: 592039 TAKE 2 TABLETS BY MOUTH EVERY NIGHT AT BEDTIME 06/18/2017 08/28/2017 Inactive clonazepam 1 mg tablet RxNorm: 629610 1 Tablet(s) PO QAM 06/04/2017 1 11/02/2016 Inactive Plavix 75 mg tablet RxNorm: 509690 1 Tablet(s) PO QD 04/10/201710/01 Inactive [SAVINGS FOR NON-COVERED DRUGS -- BIN:00 3585, PCN: ASPROD1, Group: XXXXX, ID# [id number], Questions: . THIS IS NOT INSURANCE.] pravastatin 20 mg tablet RxNorm: 260353 1 Tablet(s) PO QD 02/26/2017 08/24/2017 Inactive carvedilol 3.125 mg tablet RxNorm: 268981 1 Tablet(s) P O BID to replace 6.25mg dose 02/26/2017 08/21/2017 Inactive Ultram 50 mg tablet RxNorm: 723385 TAKE 1 TO 2 TABLETS BY MOUTH THREE TIMES DAILY NEEDED FOR PAIN 02/26/2017 03/07/2017 Inactive pravastatin 20 mg tablet RxNorm: 929022 1 Tablet(s) PO QD 02/26/2017 08/21/2017 Inactive carvedilol 3.125 mg tablet RxNorm: 052625 1 Tablet(s) P O BID to replace 6.25mg dose 02/26/2017 08/20/2017 Inactive clonazepam 0.5 mg tablet RxNorm: 940084 1 Tablet(s) PO QAM 02/14/20 17 02/13/2017 Inactive primidone 50 mg tablet RxNorm: 063691 1 Tablet(s) PO QHS 02/13/2017 0 05/01/2017 Inactive clonazepam 1 mg tablet RxNorm: 653612 1 Tablet(s) PO QAM 02/13/2017 0 05/13/2017 Inactive primidone 50 mg tablet RxNorm: 554262 1/2 Tablet(s) PO QD for 7 days then increase to 1 tablet at bedtime 01/09/2017 02/12/2017 Inactive pravastatin 20 mg tablet RxNorm: 114846 Tablet(s) 1 TABLET(S) PO QD 11/29/2016 02/25/2017 Inactive clonazepam 1 mg tablet RxNorm: 834729 1 Tablet(s) PO BID replac es 0.5mg dose 11/23/2016 01/08/2017 Inactive pravastatin 20 mg tablet RxNorm: 220017 1 TABLET(S) PO QD 11/17/2016 11/28/2016 Inactive Ambien 5 mg tablet RxNorm: 205381 TAKE 1 TABLET BY MOUTH EVERY NIGHT AT BEDTIME 11/17/2016 12/14/2016 Inactive clonazepam 0.5 mg tablet RxNorm: 973284 TAKE 1 TABLET BY MOUTH TWICE DAILY 11/17/2016 11/22/2016 Inactive Plavix 75 mg tablet RxNorm: 809507 1 Tablet(s) PO QD 11/06/201604/09 Inactive [SAVINGS FOR NON-COVERED DRUGS -- BIN:00 3585, PCN: ASPROD1, Group: XXXXX, ID# [id number], Questions: . THIS IS NOT INSURANCE.] Plavix 75 mg tablet RxNorm: 378629 1 Tablet(s) PO QD 08/28/201611/05 Inactive [SAVINGS FOR NON-COVERED DRUGS -- BIN:00 3585, PCN: ASPROD1, Group: XXXXX, ID# [id number], Questions: . THIS IS NOT INSURANCE.] Lidoderm 5 % topical patch RxNorm: 7112075 Application T OP 2 patches for 12hrs then off for 12hrs 08/28/2016 08/27/2016 Inactive clonazepam 0.5 mg tablet RxNorm: 718180 1 Tablet(s) PO BID 08/07/20 16 11/22/2016 Inactive pravastatin 20 mg tablet RxNorm: 355710 1 Tablet(s) PO QD 08/07/2016 11/04/2016 Inactive cyclobenzaprine 10 mg tablet RxNorm: 942599 1 Tablet(s) PO TID as needed for muscle spasm 08/07/2016 09/05/2016 Inactive [SAVINGS FOR NON -COVERED DRUGS -- BIN:519061, PCN: ASPROD1, Group: XXXXX, ID# [id number], Questions: . THIS IS NOT INSURANCE.] Plavix 75 mg tablet RxNorm: 918752 1 Tablet(s) PO QD 08/07/201608/27 Inactive [SAVINGS FOR NON-COVERED DRUGS -- BIN: 3585, PCN: ASPROD1, Group: XXXXX, ID# [id number], Questions: . THIS IS NOT INSURANCE.] carvedilol 3.125 mg tablet RxNorm: 251322 1 Tablet(s) P O BID to replace 6.25mg dose 08/07/2016 02/02/2017 Inactive clonazepam 0.5 mg tablet RxNorm: 222470 1 Tablet(s) PO BID 07/04/20 16 08/07/2016 Inactive Plavix 75 mg tablet RxNorm: 386285 1 TABLET(S) PO QD 06/20/201608/06 Inactive [SAVINGS FOR NON-COVERED DRUGS -- BIN: 3585, PCN: ASPROD1, Group: XXXXX, ID# [id number], Questions: . THIS IS NOT INSURANCE.] clonazepam 0.5 mg tablet RxNorm: 125512 1 Tablet(s) PO BID 06/09/20 16 07/03/2016 Inactive pravastatin 20 mg tablet RxNorm: 014001 1 Tablet(s) PO QD 05/23/2016 08/06/2016 Inactive pravastatin 20 mg tablet RxNorm: 405777 1 Tablet(s) PO QD 05/23/2016 05/22/2016 Inactive carvedilol 3.125 mg tablet RxNorm: 795396 1 Tablet(s) P O BID to replace 6.25mg dose 05/10/2016 08/06/2016 Inactive carvedilol 3.125 mg tablet RxNorm: 151741 1 Tablet(s) P O BID to replace 6.25mg dose 05/10/2016 05/09/2016 Inactive clonazepam 0.5 mg tablet RxNorm: 356332 1 Tablet(s) PO BID 05/10/20 16 06/08/2016 Inactive carvedilol 6.25 mg tablet RxNorm: 139598 1 Tablet(s) PO QD 05/10/20 16 05/10/2016 Inactive simvastatin 40 mg tablet RxNorm: 695377 1 TABLET(S) PO QD 04/10/2016 05/09/2016 Inactive Medrol (Jose) 4 mg tablets in a dose pack RxNorm: 213474 Tablet(s) PO As Directed 01/13/2016 05/09/2016 Inactive cyclobenzaprine 10 mg tablet RxNorm: 012601 1 TABLET(S) PO TID NEEDED FOR SPASM 01/11/2016 03/10/2016 Inactive [SAVINGS FOR NON -COVERED DRUGS -- BIN:089661, PCN: ASPROD1, Group: XXXXX, ID# [id number], Questions: . THIS IS NOT INSURANCE.] Plavix 75 mg tablet RxNorm: 151512 1 Tablet(s) PO QD 12/30/201506/19 Inactive [SAVINGS FOR NON-COVERED DRUGS -- BIN: 3585, PCN: ASPROD1, Group: XXXXX, ID# [id number], Questions: . THIS IS NOT INSURANCE.] Ambien 5 mg tablet RxNorm: 809470 TAKE 1 TABLET BY MOUTH EVERY DAY AT BEDTIME 11/15/2015 11/17/2016 Inactive simvastatin 40 mg tablet RxNorm: 741235 1 Tablet(s) PO QD 10/11/2015 01/12/2019 Inactive simvastatin 40 mg tablet RxNorm: 820596 1 Tablet(s) PO QD 10/08/2015 10/10/2015 Inactive Ambien 5 mg tablet RxNorm: 094432 TAKE 1 TABLET BY MOUTH EVERY NIGHT AT BEDTIME 07/27/2015 11/15/2015 Inactive Plavix 75 mg tablet RxNorm: 721074 1 Tablet(s) PO QD 06/28/201512/29 Inactive [SAVINGS FOR NON-COVERED DRUGS -- BIN:00 3585, PCN: ASPROD1, Group: XXXXX, ID# [id number], Questions: . THIS IS NOT INSURANCE.] Coreg 6.25 mg tablet RxNorm: 098930 1 TABLET(S) PO BID 04/19/2015 Inactive [SAVINGS FOR NON-COVERED DRUGS -- BIN:00 3585, PCN: ASPROD1, Group: XXXXX, ID# [id number], Questions: . THIS IS NOT INSURANCE.] simvastatin 40 mg tablet RxNorm: 339017 1 Tablet(s) PO QD 04/05/2015 04/04/2015 Inactive simvastatin 40 mg tablet RxNorm: 960664 1 Tablet(s) PO QD 04/05/2015 10/11/2015 Inactive Plavix 75 mg tablet RxNorm: 385733 1 TABLET(S) PO QD 03/22/201504/20 Inactive [SAVINGS FOR NON-COVERED DRUGS -- BIN:00 3585, PCN: ASPROD1, Group: XXXXX, ID# [id number], Questions: . THIS IS NOT INSURANCE.] Plavix 75 mg tablet RxNorm: 199281 1 Tablet(s) PO QD 03/22/201506/28 Inactive [SAVINGS FOR NON-COVERED DRUGS -- BIN:00 3585, PCN: ASPROD1, Group: XXXXX, ID# [id number], Questions: . THIS IS NOT INSURANCE.] Ambien 5 mg tablet RxNorm: 680035 1 Tablet(s) PO QHS 12/17/201407/28 Inactive [SAVINGS FOR NON-COVERED DRUGS -- BIN:00 3585, PCN: ASPROD1, Group: XXXXX, ID# [id number], Questions: . THIS IS NOT INSURANCE.] Coreg 6.25 mg tablet RxNorm: 438293 1 Tablet(s) PO BID 12/17/2014 Inactive [SAVINGS FOR NON-COVERED DRUGS -- BIN:00 3585, PCN: ASPROD1, Group: XXXXX, ID# [id number], Questions: . THIS IS NOT INSURANCE.] Plavix 75 mg tablet RxNorm: 791472 1 Tablet(s) PO QD 12/17/201403/16 Inactive [SAVINGS FOR NON-COVERED DRUGS -- BIN:00 3585, PCN: ASPROD1, Group: XXXXX, ID# [id number], Questions: . THIS IS NOT INSURANCE.] cyclobenzaprine 10 mg tablet RxNorm: 936602 1 Tablet(s) PO TID as needed for spasm 12/17/2014 03/16/2015 Inactive [SAVINGS FOR NON -COVERED DRUGS -- BIN:678768, PCN: ASPROD1, Group: XXXXX, ID# [id number], Questions: . THIS IS NOT INSURANCE.] Coreg 6.25 mg tablet RxNorm: 356644 1 Tablet(s) PO BID 10/21/201409/2014 Inactive [SAVINGS FOR NON-COVERED DRUGS -- BIN:00 3585, PCN: ASPROD1, Group: XXXXX, ID# [id number], Questions: . THIS IS NOT INSURANCE.] Plavix 75 mg tablet RxNorm: 173575 1 Tablet(s) PO QD 10/21/201412/16 Inactive [SAVINGS FOR NON-COVERED DRUGS -- BIN:00 3585, PCN: ASPROD1, Group: XXXXX, ID# [id number], Questions: . THIS IS NOT INSURANCE.] Plavix 75 mg tablet RxNorm: 303534 1 Tablet(s) PO QD Ne eds routine check up--last seen March 2012 09/21/2014 10/20/2014 Inactive [SAVINGS FOR UNINSURED PATIENTS -- BIN:967029, PCN: ASPROD1, Group: AME08, ID# [id number], Process claim through [employer], for questions: . THIS IS NOT INSURANCE.] Ambien 5 mg tablet RxNorm: 088723 1 Tablet(s) PO QHS 09/21/201412/16 Inactive [SAVINGS FOR UNINSURED PATIENTS -- BIN:0 75665, PCN: ASPROD1, Group: AME08, ID# [id number], Process claim through [employer], for questions: . THIS IS NOT INSURANCE.] Coreg 6.25 mg tablet RxNorm: 308355 1 Tablet(s) PO BID 09/21/201411/2014 Inactive [SAVINGS FOR UNINSURED PATIENTS -- BIN:0 12912, PCN: ASPROD1, Group: AME08, ID# [id number], Process claim through [employer], for questions: . THIS IS NOT INSURANCE.] Plavix 75 mg tablet RxNorm: 453196 1 Tablet(s) PO QD Ne eds routine check up--last seen March 2012 08/04/2014 09/02/2014 Inactive [SAVINGS FOR UNINSURED PATIENTS -- BIN:474120, PCN: ASPROD1, Group: AME08, ID# [id number], Process claim through [employer], for questions: . THIS IS NOT INSURANCE.] Plavix 75 mg tablet RxNorm: 300499 1 Tablet(s) PO QD Ne eds routine check up--last seen March 2012 08/03/2014 08/03/2014 Inactive Protonix 40 mg tablet,delayed release RxNorm: 500811 1 Tablet(s ) PO QD 06/08/2014 02/17/2019 Inactive [SAVINGS FOR UNINSUR ED PATIENTS -- BIN:472203, PCN: ASPROD1, Group: AME08, ID# [id number], Process claim through [employer], for questions: . THIS IS NOT INSURANCE.] hydrocodone 10 mg-acetaminophen 325 mg tablet RxNorm: 301986 1 Tablet(s) PO BID as needed for pain 02/18/2014 03/31/2015 Inactive Coreg 6.25 mg tablet RxNorm: 864358 1 Tablet(s) PO BID 02/02/2014 Inactive Protonix 40 mg granules delayed-release packet RxNorm: 039471 1 Tablet(s) PO QD 01/13/2014 06/08/2014 Inactive Plavix 75 mg tablet RxNorm: 196672 1 Tablet(s) PO QD Ne eds routine check up--last seen March 2012 01/13/2014 08/02/2014 Inactive Plavix 75 mg tablet RxNorm: 800758 1 Tablet(s) PO QD Ne eds routine check up--last seen March 2012 12/09/2013 01/07/2014 Inactive Coreg 6.25 mg tablet RxNorm: 557511 1 Tablet(s) PO BID 12/09/2013 Inactive Cymbalta 60 mg capsule,delayed release RxNorm: 068633 1 Capsule (s) PO QD 10/31/2013 01/12/2014 Inactive Coreg 6.25 mg tablet RxNorm: 461403 1 Tablet(s) PO BID 10/31/2013 Inactive Plavix 75 mg tablet RxNorm: 562235 1 Tablet(s) PO QD Ne eds routine check up--last seen March 2012 10/31/2013 11/29/2013 Inactive Coreg 6.25 mg tablet RxNorm: 186852 1 Tablet(s) PO BID 10/31/2013 Inactive atorvastatin 40 mg tablet RxNorm: 932834 1 Tablet(s) PO QD 10/31/1903/31/2015 Inactive Plavix 75 mg tablet RxNorm: 939942 1 Tablet(s) PO QD Ne eds routine check up--last seen March 2012 09/23/2013 10/30/2013 Inactive cyclobenzaprine 10 mg tablet RxNorm: 635525 1 Tablet(s) PO TID as needed for spasm 09/23/2013 No Stop Date Active cyclobenzaprine 10 mg tablet RxNorm: 012328 1 Tablet(s) PO TID as needed for spasm 07/04/2013 09/22/2013 Inactive atorvastatin 40 mg tablet RxNorm: 194038 1 Tablet(s) PO QD 06/23/20 13 10/30/2013 Inactive atorvastatin 40 mg tablet RxNorm: 322578 1 Tablet(s) PO QD 04/22/20 13 06/22/2013 Inactive Nucynta 50 mg tablet RxNorm: 735216 1-2 Tablet(s) PO Q6H as nee ded for pain 01/01/2013 01/12/2014 Inactive Ambien 5 mg tablet RxNorm: 229161 1 Tablet(s) PO QHS 10/16/201201/13 Inactive Plavix 75 mg tablet RxNorm: 425962 1 Tablet(s) PO QD 09/19/201209/13 Inactive Protonix 40 mg tablet,delayed release RxNorm: 998788 1 Tablet(s ) PO QD 09/19/2012 09/18/2012 Inactive simvastatin 40 mg tablet RxNorm: 497997 1 Tablet(s) PO QD 09/19/2012 02/23/2013 Inactive Protonix 40 mg tablet,delayed release RxNorm: 818010 1 Tablet(s ) PO QD 09/19/2012 09/13/2013 Inactive Ultram 50 mg tablet RxNorm: 487274 1-2 Tablet(s) PO QID as need ed for pain 09/19/2012 02/26/2017 Inactive propranolol 80 mg tablet RxNorm: 656764 1 Tablet(s) PO QHS 09/19/19 13 09/18/2012 Inactive Cymbalta 60 mg capsule,delayed release RxNorm: 399174 1 Capsule (s) PO QD 09/19/2012 09/18/2012 Inactive Cymbalta 60 mg capsule,delayed release RxNorm: 113060 1 Capsule (s) PO QD 09/19/2012 03/17/2013 Inactive propranolol 80 mg tablet RxNorm: 479594 1 Tablet(s) PO QHS 09/19/19 13 02/23/2013 Inactive hydrocodone-acetaminophen 10 mg-325 mg tablet RxNorm: 893095 2 1-2 Tablet(s) PO QID 07/25/2012 02/23/2013 Inactive Ambien 10 mg tablet RxNorm: 453115 1 Tablet(s) PO QHS as needed for sleep 07/10/2012 01/27/2013 Inactive propranolol 80 mg tablet RxNorm: 788066 1 Tablet(s) PO QHS 05/13/20 12 09/18/2012 Inactive hydrocodone-acetaminophen 10 mg-325 mg tablet RxNorm: 647339 2 1-2 Tablet(s) PO QID 05/02/2012 No Stop Date Active Restoril 15 mg Cap RxNorm: 926161 1-2 Capsule(s) PO QHS 05/02/2012 Inactive propranolol 80 mg tablet RxNorm: 808205 1 Tablet(s) PO QHS 05/02/20 12 05/12/2012 Inactive Chantix Starting Month Box 0.5 mg (11)-1 mg (42) Tabs in a Dose Pack RxNorm: 604986 Tablet(s) PO As Directed 04/01/2012 01/27/2013 Inactive simvastatin 40 mg tablet RxNorm: 308603 1 Tablet(s) PO QD 03/28/2012 09/18/2012 Inactive simvastatin 40 mg Tab RxNorm: 374479 1 Tablet(s) PO QD 03/22/201207/2012 Inactive Effient 10 mg Tab RxNorm: 804831 1 Tablet(s) PO QD 03/22/2012 012 Inactive Prilosec 40 mg Capsule, delayed release RxNorm: 260331 1 Capsul e(s) PO QD 03/22/2012 09/18/2012 Inactive Prilosec 40 mg Capsule, delayed release RxNorm: 715246 1 Capsul e(s) PO QD 03/19/2012 03/21/2012 Inactive Cymbalta 60 mg capsule,delayed release RxNorm: 540708 1 Capsule (s) PO QD 03/04/2012 08/30/2012 Inactive hydrocodone-acetaminophen 10 mg-325 mg Tab RxNorm: 3585477 1-2 T ablet(s) PO QID 01/23/2012 No Stop Date Active Cymbalta 60 mg Capsule, delayed release RxNorm: 669584 1 Capsul e(s) PO QD 01/23/2012 03/03/2012 Inactive Cipro 500 mg Tab RxNorm: 658608 1 Tablet(s) PO BID 12/20/2011 012 Inactive Cymbalta 60 mg Capsule, delayed release RxNorm: 479797 1 Capsul e(s) PO QD 12/13/2011 01/22/2012 Inactive nortriptyline 75 mg Cap RxNorm: 811055 1 Capsule(s) PO QHS 11/29/19 12 04/02/2012 Inactive Cymbalta 60 mg Cap RxNorm: 873201 1 Capsule(s) PO QD 10/24/201112/11 Inactive propranolol 80 mg Tab RxNorm: 249255 1 Tablet(s) PO QHS 10/24/2011 Inactive hydrocodone-acetaminophen 10 mg-325 mg Tab RxNorm: 2622372 1-2 T ablet(s) PO QID 09/29/2011 No Stop Date Active hydrocodone-acetaminophen 10 mg-325 mg Tab RxNorm: 0211143 1-2 T ablet(s) PO QID 07/25/2011 No Stop Date Active hydrocodone-acetaminophen 10 mg-325 mg Tab RxNorm: 7639874 1-2 T ablet(s) PO QID 02/14/2011 No Stop Date Active Prilosec 40 mg Cap RxNorm: 036150 1 Capsule(s) PO 01/03/2011 01/13/20 19 Inactive nortriptyline 75 mg Cap RxNorm: 600166 1 Capsule(s) PO QHS 01/04/20 11 07/01/2011 Inactive Neurontin 600 mg Tab RxNorm: 172526 1 Tablet(s) PO QHS 12/08/201011/2011 Inactive hydrocodone-acetaminophen 5 mg-500 mg Tab RxNorm: 177524 2 Tablet(s) PO Q4-6H prn 10/20/2010 01/08/2011 Inactive Diltzac ER 240 mg Cap RxNorm: 081074 1 Capsule(s) PO QD 07/14/2010 Inactive Nortriptyline 75 mg Cap RxNorm: 282103 1 Capsule(s) PO QHS 05/09/20 10 01/12/2019 Inactive Neurontin 600 mg Tab RxNorm: 335360 1 Tablet(s) PO QD 03/17/201012/17 Inactive Nortriptyline 75 mg Cap RxNorm: 258246 1 Capsule(s) PO 01/12/2010 Inactive Nortriptyline 50 mg Cap RxNorm: 118387 1 Capsule(s) PO QHS 01/13/20 10 01/11/2010 Inactive Diltzac ER 240 mg Cap RxNorm: 080898 1 Capsule(s) PO QD 12/06/2009 Inactive aspirin 81 mg Tab RxNorm: 695344 1 Tablet(s) PO QD No Start Date Active Vitamin D3 2,000 unit tablet RxNorm: 714531 1 Tablet(s) PO QD No Star t Date Active nahybucdq-hilhjwpvw-votcwy complex no.233 oral RxNorm: oral No Start Date Active primidone 50 mg tablet RxNorm: 542718 2 Tablet(s) PO BID No Start Date Active Prilosec 40 mg Capsule, delayed release RxNorm: 645481 1 Capsul e(s) PO QD No Start Date 03/18/2012 Inactive Prilosec 20 mg Cap RxNorm: 014505 1 Capsule(s) PO QHS No Start Date 0 01/02/2011 Inactive primidone 50 mg tablet RxNorm: 058012 1/2 Tablet(s) PO QHS for 1week then go full tab if needed No Start Date 05/01/2017 Inactive ProAir HFA 90 mcg/actuation aerosol inhaler RxNorm: 786670 2 Puff(s) INH Q4H as needed No Start Date 10/29/2017 Inactive clonazepam 0.5 mg tablet RxNorm: 604757 1/2 Tablet(s) PO BID No Sta rt Date 02/12/2017 Inactive Pepcid AC 10 mg Tab RxNorm: 472052 1 Tablet(s) PO QAM No Start Date 0 02/19/2011 Inactive Coreg Oral RxNorm: Oral No Start Date 01/12/2014 Inactive primidone 50 mg tablet RxNorm: 304586 1/2 Tablet(s) PO QD for 7 days then increase to 1 tablet at bedtime No Start Date 01/08/2017 Inactive Medrol (Jose) 4 mg tablets in a dose pack RxNorm: 520400 Tablet(s) PO As Directed No Start Date 01/12/2016 Inactive Plavix 75 mg tablet RxNorm: 985678 1 Tablet(s) PO QD No Start Date Inactive cyclobenzaprine 10 mg tablet RxNorm: 853499 1 Tablet(s) PO TID as needed for spasm No Start Date 07/03/2013 Inactive Bevespi Aerosphere 9 mcg-4.8 mcg HFA aerosol inhaler RxNorm: 0336828 2 Puff(s) INH BID No Start Date 02/18/2019 Inactive tramadol 50 mg tablet RxNorm: 363639 1-2 Tablet(s) PO TID as ne eded for pain No Start Date 01/12/2019 Inactive clonazepam 1 mg tablet RxNorm: 410305 1 Tablet(s) PO QAM No Start D ate 09/18/2018 Inactive hydrocodone-acetaminophen 5 mg-500 mg Tab RxNorm: 338219 2 Tablet(s) PO Q4-6H prn No Start Date 10/19/2010 Inactive lisinopril 20 mg Tab RxNorm: 521426 1/2 Tablet(s) PO QD No Start Da te 03/12/2011 Inactive Lyrica 75 mg capsule RxNorm: 703752 1 Capsule(s) PO QHS No Start Da te 10/08/2019 Inactive Protonix 40 mg tablet,delayed release RxNorm: 545579 1 Tablet(s ) PO QD No Start Date 06/07/2014 Inactive Lipitor Oral RxNorm: Oral No Start Date 01/12/2014 Inactive primidone 50 mg tablet RxNorm: 676169 2 Tablet(s) PO QAM and 1 tablet at HS No Start Date 02/17/2019 Inactive hydrocodone-acetaminophen 10 mg-325 mg Tab RxNorm: 2159337 1-2 T ablet(s) PO QID No Start Date 02/13/2011 Inactive Ultram 50 mg tablet RxNorm: 135094 1-2 Tablet(s) PO QID as need ed for pain No Start Date 09/18/2012 Inactive Effient 10 mg Tab RxNorm: 144572 1 Tablet(s) PO QD No Start Date 01/2012 Inactive Bevespi Aerosphere 9 mcg-4.8 mcg HFA aerosol inhaler RxNorm: 4135309 2 Puff(s) INH BID No Start Date 10/29/2017 Inactive Neurontin Oral RxNorm: Oral No Start Date 01/12/2010 Inactive primidone 50 mg tablet RxNorm: 901972 1 Tablet(s) PO QD No Start Da te 01/12/2019 Inactive Chantix Starting Month Box 0.5 mg (11)-1 mg (42) Tabs in a Dose Pack RxNorm: 938473 Tablet(s) PO No Start Date 03/31/2012 Inactive atenolol 25 mg Tab RxNorm: 122415 1 Tablet(s) PO QD No Start Date 02/2012 Inactive Neurontin 600 mg Tab RxNorm: 345307 1 Tablet(s) PO QD No Start Date 0 03/16/2010 Inactive Nucynta 50 mg tablet RxNorm: 896089 1-2 Tablet(s) PO Q6H as nee ded for pain No Start Date 12/31/2012 Inactive simvastatin 40 mg Tab RxNorm: 286994 1 Tablet(s) PO QD No Start Date 03/21/2012 Inactive Medication Administered No Medication Administered data Immunizations Vaccine Codes Date Status Influenza CVX: 135 07/04/2017 Complete Results Observation Observation Code Item Item Code Result Date [facility] Location COMPLETE BLOOD COUNT [id number] WBC 4.9 10e9/L 09/30/19 20 Unknown COMPLETE BLOOD COUNT [id number] RBC 4.65 10e12/L 2019 Unknown COMPLETE BLOOD COUNT [id number] HEMOGLOBIN 13.8 g/dL 09/30/19 20 Unknown COMPLETE BLOOD COUNT [id number] HEMATOCRIT 42.3 % 09/30/19 20 Unknown COMPLETE BLOOD COUNT [id number] MCV 91.0 fL 0 Unknown COMPLETE BLOOD COUNT [id number] MCH 29.7 pg 0 Unknown COMPLETE BLOOD COUNT [id number] MCHC 32.6 g/dL 0 Unknown COMPLETE BLOOD COUNT [id number] PLATELET COUNT 230 10e9/L Unknown COMPLETE BLOOD COUNT 8742908 Mean Plt Volume 9.9 fL Unknown COMPLETE BLOOD COUNT [id number] Neut Auto 52.5 % 0 Unknown COMPLETE BLOOD COUNT [id number] Lymph Auto 30.8 % 09/30/19 20 Unknown COMPLETE BLOOD COUNT [id number] Coke Auto 11.2 % 0 Unknown COMPLETE BLOOD COUNT [id number] RDW 13.5 % 0 Unknown COMPLETE BLOOD COUNT [id number] Eos Auto 5.1 % 0 Unknown COMPLETE BLOOD COUNT [id number] Baso Auto 0.4 % 0 Unknown COMPLETE BLOOD COUNT [id number] Neutrophil Abs 2.57 10e9/L Unknown COMPLETE BLOOD COUNT [id number] Lymphocyte Abs 1.51 10e9/L Unknown COMPLETE BLOOD COUNT [id number] Monocyte Abs 0.55 10e9/L 09/17 Unknown COMPLETE BLOOD COUNT [id number] Eosinophil Abs 0.25 10e9/L Unknown COMPLETE BLOOD COUNT [id number] RDW-SD 43.9 fL 0 Unknown COMPLETE BLOOD COUNT [id number] Basophil Abs 0.02 10e9/L 09/17 Unknown GFR CALC [id number] GFR Non Afr Amr >60 mL/min 09/30/2019 Un known GFR CALC [id number] GFR Afr Amr >60 mL/min 09/30/2019 Unknow n THYROID STIMULATING HORMONE 58706 TSH 1.129 uIU/mL 09/30/2019 Unknown PSA EQUIMOLAR BARBIE 29494 PSA Total 0.77 ng/mL 0 Unknown LIPID GROUP 55967 Cholesterol 192 mg/dL 09/30/2019 Unkno wn LIPID GROUP 00982 Triglyceride 86 mg/dL 09/30/2019 Unkn own LIPID GROUP 00383 HDL CHOLESTEROL 64 mg/dL 09/30/2019 U nknown LIPID GROUP 54666 Chol/HDL Ratio 3.00 ratio 09/30/2019 U nknown LIPID GROUP 42148 NON-HDL Chol 128 mg/dL 09/30/2019 Unkn own LIPID GROUP 85126 LDL Cholesterol 111 mg/dL 09/30/2019 U nknown COMPREHENSIVE METABOLIC 96808 AST 17 U/L 2019 Unknown COMPREHENSIVE METABOLIC 51264 ALT 10 U/L 2019 Unknown COMPREHENSIVE METABOLIC 34939 BUN 13 mg/dL 2019 Unknown COMPREHENSIVE METABOLIC 95097 ALBUMIN 4.3 g/dL 2019 Unknown COMPREHENSIVE METABOLIC 78856 CHLORIDE 102 mmol/L 09/30 Unknown COMPREHENSIVE METABOLIC 60936 Bili Total 0.6 mg/dL 09/30 Unknown COMPREHENSIVE METABOLIC 76004 ALK PHOS 91 U/L 2019 Unknown COMPREHENSIVE METABOLIC 68642 SODIUM 138 mmol/L 09/30 Unknown COMPREHENSIVE METABOLIC 93394 CREATININE 1.09 mg/dL 09/17 Unknown COMPREHENSIVE METABOLIC 94478 CALCIUM 9.0 mg/dL 2019 Unknown COMPREHENSIVE METABOLIC 71192 POTASSIUM 4.5 mmol/L 09/30 Unknown COMPREHENSIVE METABOLIC 37836 Total Protein 6.8 g/dL Unknown COMPREHENSIVE METABOLIC 54447 Glucose 91 mg/dL 2019 Unknown COMPREHENSIVE METABOLIC 99297 Bicarbonate 28 mmol/L 09/17 Unknown COMPREHENSIVE METABOLIC 18940 AGAP 8 mmol/L 2019 Unknown COMPLETE BLOOD COUNT [id number] WBC 4.9 10e9/L 09/04/20 18 Unknown COMPLETE BLOOD COUNT [id number] RBC 4.42 10e12/L 2017 Unknown COMPLETE BLOOD COUNT [id number] HEMOGLOBIN 13.4 g/dL 09/04/20 18 Unknown COMPLETE BLOOD COUNT [id number] HEMATOCRIT 40.5 % 09/04/20 18 Unknown COMPLETE BLOOD COUNT [id number] MCV 91.6 fL 8 Unknown COMPLETE BLOOD COUNT [id number] MCH 30.3 pg 8 Unknown COMPLETE BLOOD COUNT [id number] MCHC 33.1 g/dL 8 Unknown COMPLETE BLOOD COUNT 8238292 PLATELET COUNT 224 10e9/L Unknown COMPLETE BLOOD COUNT 5355316 Mean Plt Volume 9.9 fL Unknown COMPLETE BLOOD COUNT 8730709 Neut Auto 60.8 % 8 Unknown COMPLETE BLOOD COUNT [id number] Lymph Auto 26.8 % 09/04/20 18 Unknown COMPLETE BLOOD COUNT 1988852 Coke Auto 10.4 % 8 Unknown COMPLETE BLOOD COUNT 6498020 RDW 12.8 % 8 Unknown COMPLETE BLOOD COUNT 5928024 Eos Auto 1.6 % 8 Unknown COMPLETE BLOOD COUNT 1097397 Baso Auto 0.4 % 8 Unknown COMPLETE BLOOD COUNT 2286603 Neutrophil Abs 2.98 10e9/L Unknown COMPLETE BLOOD COUNT [id number] Lymphocyte Abs 1.31 10e9/L Unknown COMPLETE BLOOD COUNT [id number] Monocyte Abs 0.51 10e9/L 08/17 Unknown COMPLETE BLOOD COUNT [id number] Eosinophil Abs 0.08 10e9/L Unknown COMPLETE BLOOD COUNT 4649489 RDW-SD 41.6 fL 8 Unknown COMPLETE BLOOD COUNT [id number] Basophil Abs 0.02 10e9/L 08/17 Unknown COMPREHENSIVE METABOLIC 62309 AST 16 U/L 2017 Unknown COMPREHENSIVE METABOLIC 91920 ALT 8 U/L 2017 Unknown COMPREHENSIVE METABOLIC 05007 BUN 12 mg/dL 2017 Unknown COMPREHENSIVE METABOLIC 75832 ALBUMIN 4.4 g/dL 2017 Unknown COMPREHENSIVE METABOLIC 02164 CHLORIDE 107 mmol/L 09/04 Unknown COMPREHENSIVE METABOLIC 71322 Bili Total 1.0 mg/dL 09/04 Unknown COMPREHENSIVE METABOLIC 16918 ALK PHOS 58 U/L 2017 Unknown COMPREHENSIVE METABOLIC 36091 SODIUM 142 mmol/L 09/04 Unknown COMPREHENSIVE METABOLIC 68854 CREATININE 0.97 mg/dL 08/17 Unknown COMPREHENSIVE METABOLIC 93934 CALCIUM 9.2 mg/dL 2017 Unknown COMPREHENSIVE METABOLIC 01681 POTASSIUM 4.6 mmol/L 09/04 Unknown COMPREHENSIVE METABOLIC 71181 Total Protein 6.5 g/dL Unknown COMPREHENSIVE METABOLIC 47338 Glucose 96 mg/dL 2017 Unknown COMPREHENSIVE METABOLIC 49959 Bicarbonate 29 mmol/L 08/17 Unknown COMPREHENSIVE METABOLIC 92985 AGAP 6 mmol/L 2017 Unknown LIPID GROUP 18804 Cholesterol 182 mg/dL 09/04/2018 Unkno wn LIPID GROUP 50367 Triglyceride 84 mg/dL 09/04/2018 Unkn own LIPID GROUP 00695 HDL CHOLESTEROL 76 mg/dL 09/04/2018 U nknown LIPID GROUP 25722 Chol/HDL Ratio 2.39 ratio 09/04/2018 U nknown LIPID GROUP 77003 NON-HDL Chol 106 mg/dL 09/04/2018 Unkn own LIPID GROUP 93670 LDL Cholesterol 89 mg/dL 09/04/2018 U nknown GFR CALC 6491373 GFR Non Afr Amr >60 mL/min 09/04/2018 Un known GFR CALC 1270747 GFR Afr Amr >60 mL/min 09/04/2018 Unknow n THYROID STIMULATING HORMONE 60479 TSH 0.713 uIU/mL 09/04/2018 Unknown PSA EQUIMOLAR BARBIE 06854 PSA Total 0.66 ng/mL 8 Unknown A FOOD C P [id number] [place] Cl Class 0 11/17/2017 Unknown A FOOD C P [id number] [place] Ct <0.35 kU/L 11/17/2017 Unknow n A FOOD C P [id number] [place] Cl Class 0 11/17/2017 Unkn own A FOOD C P [id number] [place] Ct <0.35 kU/L 11/17/2017 Unk nown A FOOD C P [id number] Egg White Cl Class 0 11/17/2017 Unkno wn A FOOD C P 2993912 Egg White Ct <0.35 kU/L 11/17/2017 Unkn own A FOOD C P [id number] Egg Yolk Cl Class 0 11/17/2017 Unknow n A FOOD C P [id number] Egg Yolk Ct <0.35 kU/L 11/17/2017 Unkno wn A FOOD C P 1779037 Cow Milk Cl Class 0 11/17/2017 Unknow n A FOOD C P 1128739 Cow Milk Ct <0.35 kU/L 11/17/2017 Unkno wn A FOOD C P 3579021 Peanut Cl Class 0 11/17/2017 Unknown A FOOD C P 0712910 Peanut Ct <0.35 kU/L 11/17/2017 Unknown A FOOD C P 6780503 Shrimp Cl Class 0 11/17/2017 Unknown A FOOD C P [id number] Shrimp Ct <0.35 kU/L 11/17/2017 Unknown A FOOD C P [id number] [place] Cl Class 0 11/17/2017 Unknown A FOOD C P 4176838 [place] Ct <0.35 kU/L 11/17/2017 Unknow n A FOOD C P 2144659 Wheat Cl Class 0 11/17/2017 Unknown A FOOD C P 7919944 Wheat Ct <0.35 kU/L 11/17/2017 Unknown A FOOD C P 8418810 Potato Cl Class 0 11/17/2017 Unknown A FOOD C P 5782456 Potato Ct <0.35 kU/L 11/17/2017 Unknown A FOOD C P [id number] Beef Cl Class 2 11/17/2017 Unknown A FOOD C P 6347354 Beef Ct 0.88 kU/L 11/17/2017 Unknown A FOOD C P 7757945 [place] Cl Class 0 11/17/2017 Unknown A FOOD C P [id number] [place] Ct <0.35 kU/L 11/17/2017 Unknown A FOOD C P [id number] Pork Cl Class 0 11/17/2017 Unknown A FOOD C P [id number] Pork Ct <0.35 kU/L 11/17/2017 Unknown A FOOD C P [id number] [place] Cl Class 0 11/17/2017 Unknown A FOOD C P [id number] [place] Ct <0.35 kU/L 11/17/2017 Unknown A FOOD C P [id number] [place] Cl Class 0 11/17/2017 Unkn own A FOOD C P [id number] [place] Ct <0.35 kU/L 11/17/2017 Unk nown A FOOD C P [id number] [place] Cl Class 0 11/17/2017 Unknown A FOOD C P 7800448 [place] Ct <0.35 kU/L 11/17/2017 Unknown A FOOD C P 5205060 Tuna Cl Class 0 11/17/2017 Unknown A FOOD C P [id number] Tuna Ct <0.35 kU/L 11/17/2017 Unknown A FOOD C P [id number] [place] CL Class 0 11/17/2017 Unknown A FOOD C P [id number] [place] CT <0.35 kU/L 11/17/2017 Unknown A FOOD C P 6198975 Case[place] Cl Class 0 11/17/2017 Unknown A FOOD C P 4295287 Casein Ct <0.35 kU/L 11/17/2017 Unknown A FOOD C P [id number] Oat Cl Class 0 11/17/2017 Unknown A FOOD C P [id number] Oat Ct <0.35 kU/L 11/17/2017 Unknown A FOOD C P 6300790 [place] Cl Class 0 11/17/2017 Unknown A FOOD C P [id number] [place] Ct <0.35 kU/L 11/17/2017 Unknown A FOOD C P 0436981 [place] Meat CL Class 0 11/17/2017 Un known A FOOD C P [id number] Chicken Meat Ct <0.35 kU/L 11/17/2017 U nknown A FOOD C P 8701784 [place] Cl Class 0 11/17/2017 Unknown A FOOD C P 2581417 [place] Ct <0.35 kU/L 11/17/2017 Unknown A FOOD C P 5063435 Pec[place] Meat Cl Class 0 11/17/2017 Unkn own A FOOD C P [id number] [place]ec[place] Meat Ct <0.35 kU/L 11/17/2017 Unk nown A NUTS PNL 2072597 Peanut Cl Class 0 11/17/2017 Unknown A NUTS PNL 4767964 Peanut Ct <0.35 kU/L 11/17/2017 Unknown A NUTS PNL 9605414 [place] Meat Cl Class 0 11/17/2017 Unk nown A NUTS PNL [id number] [place] [facility] <0.35 kU/L 11/17/2017 Un known A NUTS PNL [id number] [place] Meat Cl Class 0 11/17/2017 Unkn own A NUTS PNL 2128799 [place] Ct <0.35 kU/L 11/17/2017 Unk nown A NUTS PNL 6381702 [place] Cl Class 0 11/17/2017 Unknown A NUTS PNL 5053069 [place] Ct <0.35 kU/L 11/17/2017 Unknown A NUTS PNL 5073442 [place] Cl Class 0 11/17/2017 Unknow n A NUTS PNL 5521265 [place] Ct <0.35 kU/L 11/17/2017 Unkno wn A NUTS PNL 5253083 [place] Cl Class 0 11/17/2017 Unkno wn A NUTS PNL 4475734 [place] Ct <0.35 kU/L 11/17/2017 Unkn own A NUTS PNL 4441016 [place] Cl Class 0 11/17/2017 Unknown A NUTS PNL 6744671 [place] Ct <0.35 kU/L 11/17/2017 Unknown A NUTS PNL 5162686 [place] Cl Class 0 11/17/2017 Unkno wn A NUTS PNL [id number] [place] Ct <0.35 kU/L 11/17/2017 Unkn own A NUTS PNL 6892146 Allergen Interp See Note 11/17/2017 Un known A FRT/VG P [id number] [place] Cl Class 0 11/17/2017 Unkn own A FRT/VG P [id number] [place] [facility] <0.35 kU/L 11/17/2017 Unk nown A FRT/VG P [id number] Pot[place] Cl Class 0 11/17/2017 Unknown A FRT/VG P [id number] [place]ato Ct <0.35 kU/L 11/17/2017 Unknown A FRT/VG P [id number] [place] Cl Class 0 11/17/2017 Unkn own A FRT/VG P [id number] [place] Ct <0.35 kU/L 11/17/2017 Unk nown A FRT/VG P [id number] [place] Cl Class 0 11/17/2017 Unknown A FRT/VG P 7940455 [place] Ct <0.35 kU/L 11/17/2017 Unknown A FRT/VG P [id number] [place] Cl Class 0 11/17/2017 Unknown A FRT/VG P 7015124 [place] Ct <0.35 kU/L 11/17/2017 Unknown A FRT/VG P 5394863 [place] Cl Class 1 11/17/2017 Unknown A FRT/VG P [id number] [place] Ct 0.48 kU/L 11/17/2017 Unknown A FRT/VG P [id number] [place] Fruit Cl Class 0 11/17/2017 Unk nown A FRT/VG P [id number] [place] Ct <0.35 kU/L 11/17/2017 Un known A FRT/VG P [id number] [place] Fruit Cl Class 0 11/17/2017 Unk nown A FRT/VG P [id number] [place] Ct <0.35 kU/L 11/17/2017 Un known A FRT/VG P 1443775 [place] Cl Class 0 11/17/2017 Unknown A FRT/VG P [id number] [place] Ct <0.35 kU/L 11/17/2017 Unknown A FRT/VG P 8878696 [place] Cl Class 0 11/17/2017 Unknown A FRT/VG P [id number] [place] Ct <0.35 kU/L 11/17/2017 Unknown A FRT/VG P 3944529 [place] Fruit Cl Class 0 11/17/2017 Unkn own A FRT/VG P 4476833 [place] Ct <0.35 kU/L 11/17/2017 Unk nown A FRT/VG P 7291637 Swt [place] Cl Class 0 11/17/2017 Unkn own A FRT/VG P 0036071 Swt [place] Ct <0.35 kU/L 11/17/2017 Unk nown THYROID STIMULATING HORMONE 31533 TSH 1.371 uIU/mL 09/03/2017 Unknown FREE T4 28101 T4 Free 1.26 ng/dL 09/03/2017 Unknown ASSAY TRIIODOTHYRONINE (T3) 49422 T3 Total 0.9 ng/mL Unknown COMPLETE BLOOD COUNT [id number] WBC 5.9 10e9/L 07/31/20 17 Unknown COMPLETE BLOOD COUNT [id number] RBC 4.64 10e12/L 2016 Unknown COMPLETE BLOOD COUNT 5233135 HEMOGLOBIN 14.2 g/dL 07/31/20 17 Unknown COMPLETE BLOOD COUNT 5734874 HEMATOCRIT 42.1 % 07/31/20 17 Unknown COMPLETE BLOOD COUNT [id number] MCV 90.7 fL 7 Unknown COMPLETE BLOOD COUNT 9775239 MCH 30.6 pg 7 Unknown COMPLETE BLOOD COUNT 4199913 MCHC 33.7 g/dL 7 Unknown COMPLETE BLOOD COUNT [id number] PLATELET COUNT 195 10e9/L Unknown COMPLETE BLOOD COUNT 9387639 Mean Plt Volume 10.0 fL Unknown COMPLETE BLOOD COUNT 3768494 Neut Auto 47.5 % 7 Unknown COMPLETE BLOOD COUNT 0418099 Lymph Auto 37.4 % 07/31/20 17 Unknown COMPLETE BLOOD COUNT 0912569 [place]ke Auto 11.7 % 7 Unknown COMPLETE BLOOD COUNT 3223822 Eos Auto 3.2 % 7 Unknown COMPLETE BLOOD COUNT 0787791 RDW 12.8 % 7 Unknown COMPLETE BLOOD COUNT 2247956 Baso Auto 0.2 % 7 Unknown COMPLETE BLOOD COUNT 1381424 Neutrophil Abs 2.80 10e9/L Unknown COMPLETE BLOOD COUNT 4182333 Lymphocyte Abs 2.21 10e9/L Unknown COMPLETE BLOOD COUNT 1357969 Monocyte Abs 0.69 10e9/L 07/18 Unknown COMPLETE BLOOD COUNT 9167880 Eosinophil Abs 0.19 10e9/L Unknown COMPLETE BLOOD COUNT 0583853 RDW-SD 41.6 fL 7 Unknown COMPLETE BLOOD COUNT 9653466 Basophil Abs 0.01 10e9/L 07/18 Unknown LIPID GROUP 88735 Cholesterol 186 mg/dL 07/31/2017 Unkno wn LIPID GROUP 51496 Triglyceride 129 mg/dL 07/31/2017 Unkn own LIPID GROUP 38811 HDL CHOLESTEROL 79 mg/dL 07/31/2017 U nknown LIPID GROUP 08736 Chol/HDL Ratio 2.35 ratio 07/31/2017 U nknown LIPID GROUP 49484 NON-HDL Chol 107 mg/dL 07/31/2017 Unkn own LIPID GROUP 83608 LDL Cholesterol 81 mg/dL 07/31/2017 U nknown GFR CALC 4924997 GFR Non Afr Amr >60 mL/min 07/31/2017 Un known GFR CALC 5218481 GFR Afr Amr >60 mL/min 07/31/2017 Unknow n COMPREHENSIVE METABOLIC 00309 AST 19 U/L 2016 Unknown COMPREHENSIVE METABOLIC 08258 ALT 12 U/L 2016 Unknown COMPREHENSIVE METABOLIC 98627 BUN 15 mg/dL 2016 Unknown COMPREHENSIVE METABOLIC 77516 ALBUMIN 4.4 g/dL 2016 Unknown COMPREHENSIVE METABOLIC 77116 CHLORIDE 102 mmol/L 07/31 Unknown COMPREHENSIVE METABOLIC 80359 Bili Total 0.9 mg/dL 07/31 Unknown COMPREHENSIVE METABOLIC 65534 ALK PHOS 53 U/L 2016 Unknown COMPREHENSIVE METABOLIC 77058 SODIUM 138 mmol/L 07/31 Unknown COMPREHENSIVE METABOLIC 11179 CREATININE 1.06 mg/dL 07/18 Unknown COMPREHENSIVE METABOLIC 30174 CALCIUM 9.3 mg/dL 2016 Unknown COMPREHENSIVE METABOLIC 00404 POTASSIUM 4.0 mmol/L 07/31 Unknown COMPREHENSIVE METABOLIC 10897 Total Protein 6.8 g/dL Unknown COMPREHENSIVE METABOLIC 46984 Glucose 86 mg/dL 2016 Unknown COMPREHENSIVE METABOLIC 15754 Bicarbonate 28 mmol/L 07/18 Unknown COMPREHENSIVE METABOLIC 89813 AGAP 8 mmol/L 2016 Unknown COMPREHENSIVE METABOLIC 72865 AST 18 U/L 2015 Unknown COMPREHENSIVE METABOLIC 83891 ALT 9 U/L 2015 Unknown COMPREHENSIVE METABOLIC 12209 BUN 11 mg/dL 2015 Unknown COMPREHENSIVE METABOLIC 40759 ALBUMIN 4.2 g/dL 2015 Unknown COMPREHENSIVE METABOLIC 15346 CHLORIDE 104 mmol/L 05/19 Unknown COMPREHENSIVE METABOLIC 23236 Bili Total 1.2 mg/dL 05/19 Unknown COMPREHENSIVE METABOLIC 68135 ALK PHOS 54 U/L 2015 Unknown COMPREHENSIVE METABOLIC 67959 SODIUM 140 mmol/L 05/19 Unknown COMPREHENSIVE METABOLIC 53573 CREATININE 1.03 mg/dL 10/2015 Unknown COMPREHENSIVE METABOLIC 40181 CALCIUM 9.3 mg/dL 2015 Unknown COMPREHENSIVE METABOLIC 47453 POTASSIUM 4.9 mmol/L 05/19 Unknown COMPREHENSIVE METABOLIC 39821 Total Protein 6.7 g/dL Unknown COMPREHENSIVE METABOLIC 28096 Glucose 92 mg/dL 2015 Unknown COMPREHENSIVE METABOLIC 25414 Bicarbonate 28 mmol/L 10/2015 Unknown COMPREHENSIVE METABOLIC 17785 AGAP 8 mmol/L 2015 Unknown THYROID STIMULATING HORMONE 79160 TSH 1.545 uIU/mL 05/19/2016 Unknown GFR CALC 2367398 GFR Non Afr Amr >60 mL/min 05/19/2016 Un known GFR CALC 4682974 GFR Afr Amr >60 mL/min 05/19/2016 Unknow n VITAMIN B 12 38632 VITAMIN B12 298 pg/mL 05/19/2016 Unkn own COMPLETE BLOOD COUNT [id number] WBC 5.2 10e9/L 05/19/20 16 Unknown COMPLETE BLOOD COUNT [id number] RBC 4.34 10e12/L 2015 Unknown COMPLETE BLOOD COUNT [id number] HEMOGLOBIN 12.9 g/dL 05/19/20 16 Unknown COMPLETE BLOOD COUNT 3542996 HEMATOCRIT 38.9 % 05/19/20 16 Unknown COMPLETE BLOOD COUNT 3975569 MCV 89.6 fL 6 Unknown COMPLETE BLOOD COUNT 9094816 MCH 29.7 pg 6 Unknown COMPLETE BLOOD COUNT 6204189 MCHC 33.2 g/dL 6 Unknown COMPLETE BLOOD COUNT 6745277 PLATELET COUNT 200 10e9/L 10/2015 Unknown COMPLETE BLOOD COUNT 2609814 Mean Plt Volume 10.1 fL 10/2015 Unknown COMPLETE BLOOD COUNT 5286002 Neut Auto 45.4 % 6 Unknown COMPLETE BLOOD COUNT 8291855 Lymph Auto 35.6 % 05/19/20 16 Unknown COMPLETE BLOOD COUNT 0350665 [place] Auto 11.9 % 6 Unknown COMPLETE BLOOD COUNT 6812482 RDW 12.7 % 6 Unknown COMPLETE BLOOD COUNT 4558277 Eos Auto 6.7 % 6 Unknown COMPLETE BLOOD COUNT 8708050 Baso Auto 0.4 % 6 Unknown COMPLETE BLOOD COUNT 2133313 Neutrophil Abs 2.36 10e9/L Unknown COMPLETE BLOOD COUNT 1274377 Lymphocyte Abs 1.85 10e9/L Unknown COMPLETE BLOOD COUNT 2808882 Monocyte Abs 0.62 10e9/L 10/2015 Unknown COMPLETE BLOOD COUNT [id number] Eosinophil Abs 0.35 10e9/L Unknown COMPLETE BLOOD COUNT 5682926 RDW-SD 40.6 fL 6 Unknown COMPLETE BLOOD COUNT [id number] Basophil Abs 0.02 10e9/L 10/2015 Unknown LIPID GROUP 47095 Cholesterol 197 mg/dL 05/19/2016 Unkno wn LIPID GROUP 48501 Triglyceride 92 mg/dL 05/19/2016 Unkn own LIPID GROUP 44125 HDL CHOLESTEROL 58 mg/dL 05/19/2016 U nknown LIPID GROUP 01964 Chol/HDL Ratio 3.40 ratio 05/19/2016 U nknown LIPID GROUP 77802 NON-HDL Chol 139 mg/dL 05/19/2016 Unkn own LIPID GROUP 09104 LDL Cholesterol 121 mg/dL 05/19/2016 U nknown FREE T4 14183 T4 Free 1.19 ng/dL 05/19/2016 Unknown COMPREHENSIVE METABOLIC 59149 AST 19 U/L 2014 Unknown COMPREHENSIVE METABOLIC 77185 ALT 10 IU/L 2014 Unknown COMPREHENSIVE METABOLIC 26787 BUN 20 MG/DL 2014 Unknown COMPREHENSIVE METABOLIC 44708 ALBUMIN 4.4 GM/DL 2014 Unknown COMPREHENSIVE METABOLIC 56041 CHLORIDE 104 MMOL/L 04/05 Unknown COMPREHENSIVE METABOLIC 85599 BILI TOT 2.2 MG/DL 2014 Unknown COMPREHENSIVE METABOLIC 84694 ALK PHOS 55 U/L 2014 Unknown COMPREHENSIVE METABOLIC 30971 SODIUM 138 MMOL/L 04/05 Unknown COMPREHENSIVE METABOLIC 25741 CREATININE 1.04 MG/DL 03/18 Unknown COMPREHENSIVE METABOLIC 52913 CALCIUM 9.3 MG/DL 2014 Unknown COMPREHENSIVE METABOLIC 44306 POTASSIUM 4.5 MMOL/L 04/05 Unknown COMPREHENSIVE METABOLIC 59995 PROT TOT 6.7 GM/DL 2014 Unknown COMPREHENSIVE METABOLIC 95017 Glucose 77 MG/DL 2014 Unknown COMPREHENSIVE METABOLIC 08557 BICARB 25 MMOL/L 2014 Unknown COMPREHENSIVE METABOLIC 04175 ANION GAP 9 MEQ/L 2014 Unknown GFR CALC 9742193 GFR AA >60 ML/MIN 04/05/2015 Unknown GFR CALC 4297990 GFR NON-AA >60 ML/MIN 04/05/2015 Unknown LIPID GROUP 53915 HDL TEST 60 MG/DL 04/05/2015 Unknown LIPID GROUP 51978 TRIG 70 MG/DL 04/05/2015 Unknown LIPID GROUP 87320 TEST LDL 137 MG/DL 04/05/2015 Unknown LIPID GROUP 64012 CHOL 211 MG/DL 04/05/2015 Unknown LIPID GROUP 70972 RCHOL/HDL 3.52 RATIO 04/05/2015 Unknow n LIPID GROUP 76277 NON-HDL CH 151 MG/DL 04/05/2015 Unknow n COMPLETE BLOOD COUNT 6327516 WBC 5.3 10e9/L 04/05/20 15 Unknown COMPLETE BLOOD COUNT 3496169 RBC 4.42 10e12/L 2014 Unknown COMPLETE BLOOD COUNT 9994260 HGB 13.4 g/dL 5 Unknown COMPLETE BLOOD COUNT 3930911 HCT DET 39.6 % 5 Unknown COMPLETE BLOOD COUNT 3544299 MCV 89.6 fL 5 Unknown COMPLETE BLOOD COUNT 3551740 MCH 30.3 pg 5 Unknown COMPLETE BLOOD COUNT 2714513 MCHC 33.8 g/dL 5 Unknown COMPLETE BLOOD COUNT 7884015 PLT 201 10e9/L 04/05/20 15 Unknown COMPLETE BLOOD COUNT 9077242 MPV 10.3 fL 5 Unknown COMPLETE BLOOD COUNT 0990807 LUPE % 56.4 % 5 Unknown COMPLETE BLOOD COUNT 1618401 LY % 24.8 % 5 Unknown COMPLETE BLOOD COUNT 9477814 MON % 12.8 % 5 Unknown COMPLETE BLOOD COUNT 6576294 EOS % 5.4 % 5 Unknown COMPLETE BLOOD COUNT 0258575 BASO % 0.6 % 5 Unknown COMPLETE BLOOD COUNT 2389041 RDW 13.2 % 5 Unknown COMPLETE BLOOD COUNT [id number] ABS LUPE 2.99 10e9/L 015 Unknown COMPLETE BLOOD COUNT 7824772 ABS LYMPH 1.31 10e9/L 015 Unknown COMPLETE BLOOD COUNT 1830886 ABS MONO 0.68 10e9/L 015 Unknown COMPLETE BLOOD COUNT 7994966 ABS EOS 0.29 10e9/L 015 Unknown COMPLETE BLOOD COUNT [id number] ABS BASO 0.03 10e9/L 015 Unknown COMPLETE BLOOD COUNT 0991958 RDW-SD 42.3 fL 5 Unknown LIPID GROUP 66265 HDL TEST 51 MG/DL 07/19/2012 Unknown LIPID GROUP 07174 TRIG 129 MG/DL 07/19/2012 Unknown LIPID GROUP 75385 TEST LDL 98 MG/DL 07/19/2012 Unknown LIPID GROUP 94924 CHOL 175 MG/DL 07/19/2012 Unknown LIPID GROUP 33488 RCHOL/HDL 3.43 RATIO 07/19/2012 Unknow n COMPREHENSIVE METABOLIC 87357 AST 18 U/L 2011 Unknown COMPREHENSIVE METABOLIC 01881 ALT 12 IU/L 2011 Unknown COMPREHENSIVE METABOLIC 98077 BUN 10 MG/DL 2011 Unknown COMPREHENSIVE METABOLIC 76463 ALBUMIN 4.1 GM/DL 2011 Unknown COMPREHENSIVE METABOLIC 16735 CHLORIDE 103 MMOL/L 07/19 Unknown COMPREHENSIVE METABOLIC 22701 BILI TOT 0.9 MG/DL 2011 Unknown COMPREHENSIVE METABOLIC 42079 ALK PHOS 62 U/L 2011 Unknown COMPREHENSIVE METABOLIC 77400 SODIUM 138 MMOL/L 07/19 Unknown COMPREHENSIVE METABOLIC 75801 CREATININE 1.08 MG/DL 10/2011 Unknown COMPREHENSIVE METABOLIC 78862 CALCIUM 9.1 MG/DL 2011 Unknown COMPREHENSIVE METABOLIC 14037 POTASSIUM 4.2 MMOL/L 07/19 Unknown COMPREHENSIVE METABOLIC 65331 PROT TOT 6.7 GM/DL 2011 Unknown COMPREHENSIVE METABOLIC 15447 Glucose 101 MG/DL 2011 Unknown COMPREHENSIVE METABOLIC 85855 BICARB 27 MMOL/L 2011 Unknown COMPREHENSIVE METABOLIC 36347 ANION GAP 8 MEQ/L 2011 Unknown GFR CALC [id number] GFR AA >60 ML/MIN 07/19/2012 Unknown GFR CALC 8678913 GFR NON-AA >60 ML/MIN 07/19/2012 Unknown Procedures Procedure Codes Date ROUTINE VENIPUNCTURE CPT-4: 11706 09/30/2019 COMPREHEN METABOLIC PANEL CPT-4: 93537 09/30/2019 COMPLETE CBC W/AUTO DIFF WBC CPT-4: 58759 09/30/2019 ASSAY OF PSA TOTAL CPT-4: 05146 09/30/2019 ASSAY THYROID STIM HORMONE CPT-4: 65160 09/30/2019 LIPID PANEL CPT-4: 92834 09/30/2019 ROUTINE VENIPUNCTURE CPT-4: 81574 09/24/2019 COMPLETE CBC W/AUTO DIFF WBC CPT-4: 34274 09/24/2019 COMPREHEN METABOLIC PANEL CPT-4: 09007 09/24/2019 LIPID PANEL CPT-4: 66553 09/24/2019 ASSAY THYROID STIM HORMONE CPT-4: 54018 09/24/2019 THER/PROPH/DIAG INJ SC/IM CPT-4: 31168 01/13/2019 TRIAMCINOLONE ACET INJ NOS CPT-4: J3301 01/13/2019 DEXAMETHASONE SODIUM PHOS CPT-4: J1100 01/13/2019 ROUTINE VENIPUNCTURE CPT-4: 56782 09/04/2018 COMPREHEN METABOLIC PANEL CPT-4: 01460 09/04/2018 COMPLETE CBC W/AUTO DIFF WBC CPT-4: 61048 09/04/2018 LIPID PANEL CPT-4: 52821 09/04/2018 ASSAY OF PSA TOTAL CPT-4: 71549 09/04/2018 ASSAY THYROID STIM HORMONE CPT-4: 65654 09/04/2018 URINALYSIS NONAUTO W/O SCOPE CPT-4: 50144 05/15/2018 ROUTINE VENIPUNCTURE CPT-4: 77151 11/16/2017 A FRT/VG P CPT-4: 5104649 11/16/2017 A FOOD C P CPT-4: 2756958 11/16/2017 A NUTS PNL CPT-4: 0135810 11/16/2017 THER/PROPH/DIAG INJ SC/IM CPT-4: 80066 11/06/2017 TRIAMCINOLONE ACET INJ NOS CPT-4: J3301 11/06/2017 DEXAMETHASONE SODIUM PHOS CPT-4: J1100 11/06/2017 ROUTINE VENIPUNCTURE CPT-4: 39565 09/03/2017 ASSAY OF FREE THYROXINE CPT-4: 79125 09/03/2017 ASSAY THYROID STIM HORMONE CPT-4: 06826 09/03/2017 ASSAY TRIIODOTHYRONINE (T3) CPT-4: 98494 09/03/2017 ROUTINE VENIPUNCTURE CPT-4: 86201 07/31/2017 COMPREHEN METABOLIC PANEL CPT-4: 48558 07/31/2017 COMPLETE CBC W/AUTO DIFF WBC CPT-4: 41307 07/31/2017 LIPID PANEL CPT-4: 01931 07/31/2017 FLU VACC PRSV FREE INC ANTIG 65 AND OLDER CPT-4: 40290 07/04/2017 ADMIN INFLUENZA VIRUS VAC CPT-4: G0008 07/04/2017 ROUTINE VENIPUNCTURE CPT-4: 34376 02/26/2017 ASSAY THYROID STIM HORMONE CPT-4: 85990 02/26/2017 COMPREHEN METABOLIC PANEL CPT-4: 83175 02/26/2017 COMPLETE CBC W/AUTO DIFF WBC CPT-4: 83568 02/26/2017 LIPID PANEL CPT-4: 05851 02/26/2017 ASSAY OF PSA TOTAL CPT-4: 06913 02/26/2017 FLUZONE, 5ML (Medicare) CPT-4: Q2038 06/28/2016 ADMIN INFLUENZA VIRUS VAC CPT-4: G0008 06/28/2016 ROUTINE VENIPUNCTURE CPT-4: 67583 05/19/2016 ASSAY OF FREE THYROXINE CPT-4: 59579 05/19/2016 ASSAY THYROID STIM HORMONE CPT-4: 72911 05/19/2016 COMPREHEN METABOLIC PANEL CPT-4: 18254 05/19/2016 COMPLETE CBC W/AUTO DIFF WBC CPT-4: 22820 05/19/2016 LIPID PANEL CPT-4: 12502 05/19/2016 VITAMIN B-12 CPT-4: 67954 05/19/2016 PPPS, initial visit CPT-4: G0438 05/10/2016 ROUTINE VENIPUNCTURE CPT-4: 70567 04/05/2015 ASSAY THYROID STIM HORMONE CPT-4: 88789 04/05/2015 COMPREHEN METABOLIC PANEL CPT-4: 89868 04/05/2015 COMPLETE CBC W/AUTO DIFF WBC CPT-4: 66922 04/05/2015 LIPID PANEL CPT-4: 67533 04/05/2015 ASSAY OF PSA TOTAL CPT-4: 19381 04/05/2015 ROUTINE VENIPUNCTURE CPT-4: 87299 07/19/2012 COMPREHEN METABOLIC PANEL CPT-4: 17801 07/19/2012 LIPID PANEL CPT-4: 16615 07/19/2012 ELECTROCARDIOGRAM COMPLETE CPT-4: 14339 03/22/2012 Vital Signs Date Vital 09/24/2019 Blood Pressure 1: 125/72 Code: 8480-6 BMI: 19.8 Code: 65285-5 Heart Rate 1: 88 bpm Height: 5'11" [...] 1: 102/60 Code: 8480-6 BMI: 19.1 Code: 45214-7 Heart Rate 1: 82 bpm Height: 5'11" Respiratory Rate: 22 bpm SpO2: 97% Tempera ture: 36.4 (C) / 97.6 (F) Weight: 137 lbs 04/25/2018 Blood Pressure 1: 118/64 Code: 8480-6 BMI: 19.2 Code: 70504-2 Heart Rate 1: 98 bpm Height: 5'11" Respiratory Rate: 20 bpm SpO2: 99% Tempera ture: 36.4 (C) / 97.6 (F) Weight: 138 lbs 11/06/2017 Blood Pressure 1: 108/68 Code: 8480-6 BMI: 18.5 Code: 53801-9 Heart Rate 1: 68 bpm Height: 5'11" Respiratory Rate: 20 bpm SpO2: 96% Tempera ture: 36.8 (C) / 98.2 (F) Weight: 133 lbs 09/03/2017 Blood Pressure 1: 122/64 Code: 8480-6 BMI: 17.6 Code: 85545-8 Heart Rate 1: 90 bpm Height: 5'11" Respiratory Rate: 20 bpm SpO2: 98% Tempera ture: 36.4 (C) / 97.6 (F) Weight: 126 lbs 08/21/2017 Blood Pressure 1: 114/80 Code: 8480-6 BMI: 17.9 Code: 05979-4 Heart Rate 1: 80 bpm Height: 5'11" Respiratory Rate: 20 bpm SpO2: 95% Tempera ture: 36.6 (C) / 97.9 (F) Weight: 128 lbs 02/13/2017 Blood Pressure 1: 122/60 Code: 8480-6 BMI: 18.5 Code: 96827-4 Heart Rate 1: 76 bpm Height: 5'11" Respiratory Rate: 20 bpm SpO2: 96% Tempera ture: 36.9 (C) / 98.4 (F) Weight: 133 lbs 11/23/2016 Blood Pressure 1: 126/70 Code: 8480-6 BMI: 18.5 Code: 72651-8 Heart Rate 1: 100 bpm Height: 5'11" Respiratory Rate: 20 bpm SpO2: 96% Tempera ture: 37.1 (C) / 98.8 (F) Weight: 133 lbs 05/23/2016 Blood Pressure 1: 128/82 Code: 8480-6 BMI: 18.5 Code: 54705-5 Heart Rate 1: 88 bpm Height: 5'11" Respiratory Rate: 20 bpm Temperature: 36 .7 (C) / 98.0 (F) Weight: 133 lbs 05/10/2016 Blood Pressure 1: 146/70 Code: 8480-6 BMI: 18.5 Code: 47462-2 Heart Rate 1: 84 bpm Height: 5'11" Respiratory Rate: 20 bpm Temperature: 36 .7 (C) / 98.1 (F) Weight: 133 lbs 04/01/2015 Blood Pressure 1: 102/60 Code: 8480-6 BMI: 18.5 Code: 92608-3 Heart Rate 1: 64 bpm Height: 5'11" Respiratory Rate: 20 bpm Temperature: 36 .8 (C) / 98.2 (F) Weight: 133 lbs 01/13/2014 Blood Pressure 1: 124/78 Code: 8480-6 BMI: 19.8 Code: 04323-8 Heart Rate 1: 76 bpm Height: 5'11" Respiratory Rate: 20 bpm Temperature: 36 .8 (C) / 98.2 (F) Weight: 142 lbs 04/03/2012 Blood Pressure 1: 106/76 Code: 8480-6 BMI: 20.9 Code: 29880-6 Heart Rate 1: 84 bpm Height: 5'11" Respiratory Rate: 20 bpm Temperature: 36 .7 (C) / 98.0 (F) Weight: 150 lbs 12/20/2011 Blood Pressure 1: 116/60 Code: 8480-6 BMI: 20.1 Code: 48447-6 Heart Rate 1: 80 bpm Height: 5'11" Respiratory Rate: 20 bpm Temperature: 36 .4 (C) / 97.6 (F) Weight: 144 lbs 10/24/2011 Blood Pressure 1: 132/74 Code: 8480-6 BMI: 19.7 Code: 58862-9 Heart Rate 1: 96 bpm Height: 5'11" [...] 04/05/2015 follow up 04/01/2015 follow up 01/13/2014 [facility] from Justin Palacio'justin in November 2012 lab draw 07/19/2012 follow up 04/03/2012 S/P stent placement in LAD, changed effient to plavix hip pain 12/20/2011 dyskinesia or tremor 10/24/2011 follow up 03/13/2011 started on effient, zocor, and atenolol follow up 02/20/2011 [facility]Dr Christian rojas follow up 02/23/2010 [facility], appt with Dr Bajwa 03/22/10 insomnia 01/12/2010 problems falling and staying asleep, takes nortriptyline Encounters Encounter Performer Location Codes Date ([id number]) OFFICE/OUTPATIENT VISIT EST Diagnosis: Essential tremor[ICD10: G25.0] Vonnie Mathews [facility] CPT-4: 08588 12/24/2019 ([id number]) NURSE/OUTPATIENT VISIT EST Diagnosis: Essential (primary) hypertension[ICD10: I10] Diagnosis: Mixed hyperlipidemia[ICD10: E78.2] Diagnosis: Encounter for screening for malignant neoplasm of prostate[ICD10: Z12.5] Vonnie MATHEWS [facility] CPT-4: 41706 09/30/2019 ([id number]) OFFICE/OUTPATIENT VISIT EST Diagnosis: Encounter for therapeutic drug level monitoring[ICD10: Z51.81] Diagnosis: Essential tremor[ICD10: G25.0] Verna MATHEWS DO [facility] CPT-4: 38660 09/24/2019 ([id number]) OFFICE/OUTPATIENT VISIT EST Diagnosis: Noninfective gastroenteritis and colitis, unspecified[ICD10: K52.9] Diagnosis: Hemorrhage of anus and rectum[ICD10: K62.5] Vonnie MATHEWS [facility] CPT-4: 54400 05/26/2019 ([id number]) OFFICE/OUTPATIENT VISIT EST Diagnosis: Other intervertebral disc degeneration, 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] Diagnosis: Other forms of dyspnea[ICD10: R06.09] Vonnie MATHEWS [facility] CPT-4: 21366 03/17/2019 OFFICE/OUTPATIENT VISIT EST Diagnosis: Other intervertebral disc degeneration, 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] Diagnosis: Other symptoms and signs involving the musculoskeletal system[ICD10: R29.898] Vonnie MATHEWS [facility] CPT-4: 19826 02/18/2019 ([id number]) OFFICE/OUTPATIENT VISIT EST Diagnosis: Other allergic rhinitis[ICD10: J30.89] Akilah ALBERTO HUBERT MATHEWS [employer] [facility] CPT-4: 77519 01/13/2019 ([id number]) NURSE/OUTPATIENT VISIT EST Diagnosis: Mixed hyperlipidemia[ICD10: E78.2] Diagnosis: Essential (primary) hypertension[ICD10: I10] Diagnosis: Encounter for screening for malignant neoplasm of prostate[ICD10: Z12.5] Diagnosis: Encounter for general adult medical examination with abnormal findings[ICD10: Z00.01] Diagnosis: Benign prostatic hyperplasia without lower urinary tract symptoms[ICD10: N40.0] Vonnie MATHEWS DO [facility] CPT-4: 07861 09/04/2018 ([id number]) OFFICE/OUTPATIENT VISIT EST Diagnosis: Otorrhea, left ear[ICD10: H92.12] Diagnosis: Impacted cerumen, right ear[ICD10: H61.21] Verna MATHEWS DO [facility] CPT-4: 27941 09/03/2018 ([id number]) OFFICE/OUTPATIENT VISIT EST Diagnosis: Other intervertebral disc degeneration, 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] Diagnosis: Primary insomnia[ICD10: F51.01] Diagnosis: Essential tremor[ICD10: G25.0] Vonnie MATHEWS [facility] CPT-4: 08351 08/26/2018 ([id number]) OFFICE/OUTPATIENT VISIT EST Diagnosis: Pelvic and perineal pain[ICD10: R10.2] Verna MATHEWS [facility] CPT-4: 77729 05/15/2018 ([id number]) OFFICE/OUTPATIENT VISIT EST Diagnosis: Encounter for therapeutic drug level monitoring[ICD10: Z51.81] Diagnosis: Acute sinusitis, unspecified[ICD10: J01.90] Diagnosis: Other intervertebral disc degeneration, 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] Diagnosis: Essential tremor[ICD10: G25.0] Diagnosis: Raynaud's syndrome without gangrene[ICD10: I73.00] Verna MATHEWS DO [facility] CPT-4: 00647 04/25/2018 ([id number]) OFFICE/OUTPATIENT VISIT EST Diagnosis: Idiopathic urticaria[ICD10: L50.1] Diagnosis: Other urticaria[ICD10: L50.8] Vonnie MATHEWS [facility] CPT-4: 54639 11/16/2017 ([id number]) OFFICE/OUTPATIENT VISIT EST Diagnosis: Idiopathic urticaria[ICD10: L50.1] Diagnosis: Other urticaria[ICD10: L50.8] Diagnosis: Other forms of dyspnea[ICD10: R06.09] Vonnie BREWERNE Denia MATHEWS [facility] CPT-4: 61230 11/06/2017 ([id number]) OFFICE/OUTPATIENT VISIT EST Diagnosis: Dyspnea, unspecified[ICD10: R06.00] Diagnosis: Abnormal weight loss[ICD10: R63.4] Vonnie DOUGLASS REA MATHEWS [employer] [facility] CPT-4: 20162 09/03/2017 ([id number]) OFFICE/OUTPATIENT VISIT EST 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9] Vonnie Galarza Denia BOWMAN [employer] [facility] CPT-4: 30649 07/31/2017 ([id number]) OFFICE/OUTPATIENT VISIT EST Diagnosis: FLU VACCINE[ICD10: Z23] Vonnie COLMENARES Denia BOW[employer] [facility] CPT-4: 55668 07/04/2017 ([id number]) OFFICE/OUTPATIENT VISIT EST Diagnosis: Mixed hyperlipidemia[ICD10: E78.2] Diagnosis: Essential tremor[ICD10: G25.0] 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] Diagnosis: Essential (primary) hypertension[ICD10: I10] Diagnosis: Supraventricular tachycardia[ICD10: I47.1] Diagnosis: Other fatigue[ICD10: R53.83] Diagnosis: Encounter for screening for malignant neoplasm of prostate[ICD10: Z12.5] Vonnie COLMENARES Denia BOWMAN [employer] [facility] CPT-4: 25748 02/26/2017 ([id number]) OFFICE/OUTPATIENT VISIT EST Diagnosis: Essential tremor[ICD10: G25.0] Vonnie MATHEWS DO [facility] CPT-4: 26995 02/13/2017 ([id number]) OFFICE/OUTPATIENT VISIT EST Diagnosis: Essential tremor[ICD10: G25.0] Diagnosis: Other intervertebral disc degeneration, 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] Vonnie MATHEWS DO [facility] CPT-4: 83099 11/23/2016 ([id number]) OFFICE/OUTPATIENT VISIT EST Diagnosis: FLU VACCINE[ICD10: Z23] Vonnie GERMAN DO [facility] CPT-4: 80068 06/28/2016 OFFICE/OUTPATIENT VISIT EST Diagnosis: Open bite of right hand, initial encounter[ICD10: S61.451A] Vonnie MATHEWS DO [facility] CPT-4: 36746 05/23/2016 ([id number]) OFFICE/OUTPATIENT VISIT EST Diagnosis: Encounter for general adult medical examination with abnormal findings[ICD10: Z00.01] Diagnosis: Mixed hyperlipidemia[ICD10: E78.2] Diagnosis: Essential tremor[ICD10: G25.0] 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] Vonnie MATHEWS DO [facility] CPT-4: 02915 05/19/2016 ([id number]) OFFICE/OUTPATIENT VISIT EST Diagnosis: HYPERLIPIDEMIA NEC/NOS[ICD9: 272.4] Diagnosis: CAD[ICD9: 414.00] Diagnosis: TACHYCARDIA[ICD9: 785.0] Diagnosis: HYPERTENSION[ICD9: 401.9] Diagnosis: Routine medical exam[ICD9: V70.0] Vonnie MATHEWS DO [facility] CPT-4: 79445 04/05/2015 ([id number]) OFFICE/OUTPATIENT VISIT EST Diagnosis: HYPERTENSION[ICD9: 401.9] Diagnosis: HYPERLIPIDEMIA NEC/NOS[ICD9: 272.4] Diagnosis: CAD[ICD9: 414.00] Diagnosis: LUMB/LUMBOSAC DISC DEGEN[ICD9: 722.52] Vonnie Bowmanranjan DOLLY GASPAR Denia MATHEWS [facility] CPT-4: 29775 04/01/2015 ([id number]) OFFICE/OUTPATIENT VISIT EST Diagnosis: CHEST PAIN NOS[ICD9: 786.50] Diagnosis: PAIN IN THORACIC SPINE[ICD9: 724.1] Diagnosis: HYPERTENSION[ICD9: 401.9] Diagnosis: GERD[ICD9: 530.81] Vonnie ASCENCIOLINE JustinKim ROMULONDER [facility] CPT-4: 58626 01/13/2014 ([id number]) OFFICE/OUTPATIENT VISIT EST Diagnosis: CAD[ICD9: 414.00] Diagnosis: HYPERLIPIDEMIA NEC/NOS[ICD9: 272.4] Vonnie LAIBESSY ANNA SKim ROMULONDER [facility] CPT-4: 01387 07/19/2012 ([id number]) OFFICE/OUTPATIENT VISIT EST Diagnosis: CAD[ICD9: 414.00] Diagnosis: INSOMNIA NOS[ICD9: 780.52] Vonnie Romuloalyssaranjan VONNIE Loza DANAY YULISA [facility] CPT-4: 62051 04/03/2012 ([id number]) OFFICE/OUTPATIENT VISIT EST Diagnosis: CHEST PAIN NOS[ICD9: 786.50] Diagnosis: CAD[ICD9: 414.00] Vonnie LAIQUELINE JustinKim ROMULON[facility] CPT-4: 72177 03/22/2012 ([id number]) OFFICE/OUTPATIENT VISIT EST Diagnosis: PROSTATITIS[ICD9: 601.9] Diagnosis: TREMOR NEC[ICD9: 333.1] Vonnie Mathews VONNIE JustinKim ROMULOND ER [facility] CPT-4: 49519 12/20/2011 OFFICE/OUTPATIENT VISIT EST Diagnosis: TREMOR NEC[ICD9: 333.1] Diagnosis: TACHYCARDIA[ICD9: 785.0] Diagnosis: HYPERTENSION[ICD9: 401.9] Vonnie Romulojuan miguel COLMENARES JustinKim ROMULO NDER DO [facility] CPT-4: 37627 10/24/2011 OFFICE/OUTPATIENT VISIT EST Vonnie Romuloalyssaranjan VONNIE JustinKim ROMULO NDER [facility] CPT- 4: 29399 03/13/2011 ([id number]) OFFICE/OUTPATIENT VISIT EST Vonnie Romuloalyssaranjan DOLLY GASPAR SKim [facility] CPT-4: 52779 02/20/2011 ([id number]) OFFICE/OUTPATIENT VISIT, GINETTE MTAHEWS DO [employer] CPT-4: 97654 02/23/2010 ([id number]) OFFICE/OUTPATIENT VISIT, EST Vonnie MATHEWS DO [employer] CPT-4: 38250 01/12/2010 Plan of Care Planned Activity Notes Codes Status Date Visit Diagnosis Plan: Essential tremor Discussion: Sta ble on clonazepam Fwup in 3mos with fasting lab ICD-9 : 333.1 ICD-10 : G25.0 12/24/2019 Patient Education: [employer]- [employer] Coupon [id number] [email or web address] Completed 12/24/2019 Appointment: Vonnie Mathews WPtel: [phone] [address] [place] LAB 09/30/2019 Appointment: Verna Ramirez [facility] [employer] [address] RESCHEDULED 09/25/2019 Visit Diagnosis Plan: Essential tremor Discussion: sta ble on clonazepam. educated patient about purchasing a large, heavy pen that will allow him to improve his writing. instructed him that pens can be purchased on [employer]. ICD-9 : 333.1 ICD-10 : G25.0 09/24/2019 Visit Diagnosis Plan: Encounter for therapeutic drug l evel monitoring Discussion: UDS and contract completed today. ICD-9 : V58.83 ICD-10 : Z51.81 09/24/2019 Appointment: Verna Ramirez [address] [id number] MEDICATION REVIEW 09/24/2019 Visit Diagnosis Plan: Hemorrhage of anus and rectum Di scussion: Update colonoscopy ICD-9 : 569.3 ICD-10 : K62.5 05/26/2019 Visit Diagnosis Plan: Noninfective gastroenteritis and colitis, unspecified Discussion: Flagyl [place] diet Update colonoscopy ICD-9 : 558.9 ICD-10 : K52.9 05/26/2019 Appointment: Vonnie Mathews WPtel: [phone] [phone] [place] record request faxed 05/23; ANGELINA with medical records 05/26/19 Hospital Follow Up 05/26/2019 Care Plan: Referral Order SNOMED-CT : 30 [id number] Pending 05/26/2019 Visit Diagnosis Plan: Other intervertebral disc degene ration, lumbar region Discussion: Increase lyrica to 150mg po q HS Continue stretches from PT [facility] Fwup after that appointment ICD-9 : 722.52 ICD-10 : M51.36 03/17/2019 Appointment: Vonnie Mathews WPtel: [address] [place], [place] [phone] US FOLLOW UP 03/17/2019 Visit Diagnosis Plan: Other intervertebral disc degene ration, lumbar region Discussion: Start PT Referral for epidural Will start lyrica 75mg po q HS once CT scan results obtained [facility] Follow Up: 3 weeks ICD-9 : 722.52 [...] : R29.898 02/18/2019 Appointment: Vonnie Mathews WPtel: [address] [place], [place] [phone] US FOLLOW UP 02/18/2019 Appointment: Vonnie Mathews WPtel: [address] [place], [place] [phone] US CANCELED 02/18/2019 Visit Diagnosis Plan: Other [...] ICD-10 : J30.89 01/13/2019 Appointment: Akilah Lopez [facility] Mayra [facility] [place] Due for annual wellness ACUTE ILLNESS 01/14/20 Appointment: Vonnie Mathews WPtel: [address] [place] [address] US LAB 09/04/2018 Visit Diagnosis Plan: Impacted [...] ICD-10 : H92.12 09/03/2018 Appointment: Verna Ramirez [address] [place] [address] ACUTE ILLNESS 09/03/2018 Visit Diagnosis Plan: Essential [...] : M51.36 08/26/2018 Appointment: Vonnie Mathews WPtel: [facility] [address] FOLLOW UP 08/26/2018 Visit Diagnosis Plan: Pelvic [...] ICD-10 : R10.2 05/15/2018 Appointment: Verna Ramirez [address] [facility] ACUTE ILLNESS 05/15/2018 Patient Education: Patient Medication Summary Completed 05/15/2018 Care Plan: US EXAM PELVIC COMPLETE scrotal LOINC : 25311-6 Pending 05/15/2018 Visit Diagnosis Plan: Other intervertebral [...] ICD-10 : J01.90 04/25/2018 [facility]ment[facility] [facility] REVIEW 04/25/2018 Patient Education: Patient Medication Summary Completed 04/25/2018 Appointment: Vonnie Mathews WPtel: [phone] [facility] 11/16/2017 Patient Education: Patient Medication Summary Completed [...] : L50.1 11/06/2017 Appointment: Vonnie Mathews WPtel: [address] [place] [address] FOLLOW UP 11/06/2017 Patient Education: Patient Medication [...] R06.00 09/03/2017 Appointment: Vonnie Mathews WPtel: [address] [place] [address] FOLLOW UP 09/03/2017 Patient Education: Patient Medication Summary Completed 09/03/2017 Visit Diagnosis Plan: Essential tremor Discussion: Sta ble on Primidone ICD-9 : 333.1 ICD-10 : G25.0 08/21/2017 Visit Diagnosis Plan: Atherosclerotic he art disease of [place] coronary artery without angina pectoris Discussion: Sees [...] : E78.2 08/21/2017 Appointment: Vonnie Mathews WPtel: [address] [place], [place] [phone] US FOLLOW UP 08/21/2017 Patient Education: Patient Medication Summary Completed 08/21/2017 Appointment: Vonnie Mathews WPtel: [address] [place], [place] [phone] US LAB 07/31/2017 Patient Education: Patient Medication Summary Completed 07/31/2017 Appointment: Vonnie Mathews WPtel: [address] [place] [address] US INJECTION 07/04/2017 Patient Education: Patient Medication Summary Completed 07/04/2017 Appointment: Vonnie Mathews WPtel: [address] [place] [address] US LAB 02/26/2017 Patient Education: Patient Medication Summary Completed 02/26/2017 Visit Diagnosis Plan: Essential tremor Discussion: Con tinue clonazepam at 1mg q AM and primidone 50mg q HS Follow Up: 3 months ICD-9 : 333.1 ICD-10 : G25.0 02/13/2017 Appointment: Vonnie Mathews WPtel: [address] [place], [place] [phone] 02/08 confirmed~sl FOLLOW UP 02/13/2017 Patient Education: Patient Medication Summary Completed 02/13/2017 Appointment: Vonnie Mathews WPtel: [address] [place], [place] [phone] US RESCHEDULED 01/23/2017 Visit Diagnosis Plan: Other intervertebral disc degene ration, lumbar region Discussion: DC oxycodone Tramadol 50mg 1-2 po TID prn pain Follow Up: 2 months ICD-9 : 722.52 ICD-10 : M51.36 11/23/2016 Visit Diagnosis Plan: Essential tremor Discussion: Inc rease clonazepam to 1mg po BID Discussed sinemet ICD-9 : 333.1 ICD-10 : G25.0 11/23/2016 Appointment: Vonnie Mathews WPtel: [address] [place], [place] [phone] 11/22 confirmed~sl MEDICATION REVIEW 11/23/2016 Patient Education: Patient Medication Summary Completed 11/23/2016 Patient Education: [facility] [employer] - Clonazepam - 18-64 - Dynamic Portal ID Completed 11/23/2016 Appointment: Vonnie Mathews WPtel: [address] [place], [place] [phone] [place] INJECTION 06/28/2016 Patient Education: Patient Medication Summary Completed 06/28/2016 Referral: Fernando Day WPtel: #1 [facility] Shilpa Lopez [id number] [place] [id number] per Maribeth, the patient is [...] if worsening 05/23/2016 Appointment: Vonnie Mathews WPtel: [address] [place], [place] [phone] ER Follow UP 05/23/2016 Patient Education: Patient Medication Summary Completed 05/23/2016 Appointment: Vonnie Mathews WPtel: [address] [place], [place] [phone] LAB 05/19/2016 Patient Education: Patient Medication Summary Completed 05/19/2016 Visit Plan: Change coreg to 3.125mg BID Trial of low dose clonazepam 0.5mg BID for tremors Fwup with Dr. Ramsey as scheduled Return for fasting lab--CBC, CMP, TSH, free T4, Lipids, PSA, B12 Proceed with Colonoscopy 05/10/2016 Appointment: Vonnie Mathews WPtel: [address] [place], [place] [phone] 05/09 confirmed~sl Annual Well Visit 05/10/2016 Patient Education: Patient Medication Summary Completed 05/10/2016 Care Plan: Referral Order SNOMED-CT : 30 [id number] Pending 05/10/2016 Appointment: Vonnie Mathews WPtel: [address] [place] [address] [place] Rescheduled for 05/10/16 at 2PM~lb RESCHEDULED 04/26/2016 Referral: Danilo Ramsey WPtel: [phone] [id number] US Referral Initiated 04/29/2015 Appointment: Vonnie Mathews WPtel: [address] [place] [address] US LAB 04/05/2015 Patient Education: Patient Medication Summary Completed 04/05/2015 Visit Plan: Return in AM for fasting lab --CMP, lipids, CBC, TSH, PSA Change hydrocodone to oxycodone 7.5/325mg 1-2 po TID Schedule with cardiology Needs colonoscopy once cardiology evaluation complete Will need to restart chol meds after lab Recheck 1mo on pain meds 04/01/2015 Appointment: Vonnie Mathews WPtel: [address] [place], [place] [phone] 03/31 confirmed -mf PHYSICAL 04/01/2015 Patient Education: Patient Medication Summary Completed 04/01/2015 Appointment: Vonnie Mathews WPtel: [address] [place], [place] [phone] Annual Well Visit 09/23/2014 Visit Plan: Continue protonix Pt has fwu p with Card next month Rec chiropracter or PT for ribs/thoracics being out and could be contributing to chest pain 01/13/2014 Appointment: Vonnie Mathews WPtel: [address] [place], [place] [phone] FOLLOW UP 01/13/2014 Patient Education: Patient Medication Summary Completed 01/13/2014 Appointment: Ariella Mcnallyl: [phone] [facility] US FOLLOW UP 12/12/2013 Appointment: Malika Cárdenas WPtel: [phone] [facility] US PHYSICAL 12/12/2013 Appointment: Vonnie Mathews WPtel: [address] [place] [address] ACUTE ILLNESS 02/20/2013 Appointment: Vonnie Mathews WPtel: [address] [place], [place] [phone] US LAB 07/19/2012 Patient Education: Patient Medication Summary Completed 07/19/2012 Appointment: Vonnie Mathews WPtel: [address] [place] [address] FOLLOW UP 04/03/2012 Patient Education: Patient Medication Summary Completed 04/03/2012 Appointment: Vonnie Mathews WPtel: [address] [place] [address] ACUTE ILLNESS 03/22/2012 Patient Education: Patient Medication Summary Completed 03/22/2012 Appointment: Vonnie Mathews WPtel: [address] [place], [place] [phone] FOLLOW UP 12/26/2011 Visit Plan: Add Cipro Continue current m eds 12/20/2011 Appointment: Vonnie Mathews WPtel: [address] [place], [place] [phone] ACUTE ILLNESS 12/20/2011 Patient Education: Patient Medication Summary Completed 12/20/2011 Visit Plan: Change neurontin to Cymbalta 30mg for 1wk then 60mg QD Add Propranolol for tremor 10/24/2011 Appointment: Vonnie Mathews WPtel: [address] [place], [place] [id number] 10/24/2011 Appointment: Vonnie Mathews WPtel: [address] [place], [place] [phone] ACUTE ILLNESS 10/24/2011 Patient Education: Patient Medication Summary Completed 10/24/2011 Visit Plan: Continue current meds and fw up with Card as scheduled 03/13/2011 Appointment: Vonnie Mathews WPtel: [address] [place], [place] [phone] FOLLOW UP 03/13/2011 Patient Education: Patient Medication Summary Completed 03/13/2011 Visit Plan: Will obtain all records and lab from [place] Discussed will likely need heart cath which pt states that Card did talk to him about in the hospital 02/20/2011 Appointment: Vonnie Mathews WPtel: [address] [place], [place] [phone] ACUTE ILLNESS 02/20/2011 Patient Education: Patient Medication Summary Completed 02/20/2011 Visit Plan: Cont Pepcid and Prilosec See Card for cardiac cath. 02/23/2010 Appointment: Vonnie Mathews WPtel: [address] [place], [place] [phone] [place] FOLLOW UP 02/23/2010 Patient Education: Patient Medication Summary Completed 02/23/2010 Visit Plan: Increase Pamelor to 75mg qhs Increase Hydrocodone to 10/325mg 1-2 po q6 prn 01/12/2010 Appointment: Vonnie Mathews WPtel: [address] [place], [place] [phone] ACUTE ILLNESS 01/12/2010 Patient Education: Patient Medication Summary Completed 01/12/2010 Referral: Iván Pardo WPtel: [facility] [id number] [facility], [id number] Referral Initiated Referral: Fernando Day WPtel: #1 [id number] [place] Referral Completed Referral: Fernando Day WPtel: #1 [id number] [place] Referral Appointment Requested Instructions Comment . [...]
--- OUTSIDE RECORDS SUMMARY | 2020-02-10 08:11 | XMS REPORT | CCD ---
Author Author Nash Mathews D.O. 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 Name Role Phone Vonnie Mathews D.O., PP Unavailable CCM Unavailable Summary Purpose Interface Exchange Insurance Providers Payer name Policy type / Coverage type Covered constitution party ID Effective Begin Date Effective End Date [employer] MEDICARE Medicare Part B [id number] 2019 Unknown Family History Family History data not found Social History Social History Element Codes Description Effective Dates Marital status Unknown 10/24/[address]: 691512858 Nonsmoker 03/29/2011 Allergies, Adverse Reactions, Alerts Substance [...] ProAir HFA 90 mcg/actuation aerosol inhaler RxNorm: 789778 2 Puff(s) Inhalation four times a day as needed 12/24/2019 No Stop Date Active Zyrtec 10 mg capsule RxNorm: 2188854 1 Capsule(s) Oral QD 0 No Stop Date Active clonazepam 1 mg tablet RxNorm: 847575 TAKE 1 TABLET BY MOUTH EV SUSAN MORNING 12/19/2019 01/17/2020 Active clonazepam 1 mg tablet RxNorm: 250322 TAKE 1 TABLET BY MOUTH EV SUSAN MORNING 11/17/2019 12/16/2019 Inactive Tamiflu 75 mg capsule RxNorm: 042511 1 Capsule(s) Oral QD 11/03/2019 11/12/2019 Inactive Tamiflu 75 mg capsule RxNorm: 575758 1 Capsule(s) Oral QD 11/03/2019 11/02/2019 Inactive clonazepam 1 mg tablet RxNorm: 159408 TAKE 1 TABLET BY MOUTH EV SUSAN MORNING 10/16/2019 11/13/2019 Inactive pravastatin 20 mg tablet RxNorm: 633681 1 Tablet(s) Oral QD 020 04/06/2020 Active Singulair 10 mg tablet RxNorm: 981493 TAKE 1 TABLET BY MOUTH EV SUSAN DAY 10/10/2019 12/24/2019 Inactive Lyrica 75 mg capsule RxNorm: 710949 1 Capsule(s) Oral every ht at bedtime 10/09/2019 01/07/2020 Active clonazepam 1 mg tablet RxNorm: 216024 TAKE 1 TABLET BY MOUTH EV SUSAN AM 09/23/2019 10/15/2019 Inactive clonazepam 1 mg tablet RxNorm: 583003 TAKE 1 TABLET BY MOUTH EV SUSAN AM 08/21/2019 09/22/2019 Inactive Singulair 10 mg tablet RxNorm: 113591 TABLET(S) 1 TABLET(S) PO QD 1 10/09/2019 Inactive Flagyl 500 mg tablet RxNorm: 386574 1 Tablet(s) PO TID 05/26/2019 Inactive clonazepam 1 mg tablet RxNorm: 285778 TAKE 1 TABLET BY MOUTH EV SUSAN MORNING 05/23/2019 06/21/2019 Inactive pravastatin 20 mg tablet RxNorm: 334932 1 Tablet(s) PO QD 04/14/2019 10/09/2019 Inactive Needs updated fasting labs Singulair 10 mg tablet RxNorm: 327254 Tablet(s) 1 TABLET(S) PO QD 0 04/14/2019 07/12/2019 Inactive clonazepam 1 mg tablet RxNorm: 702277 1 Tablet(s) PO QAM 02/21/2019 0 05/23/2019 Inactive Bevespi Aerosphere 9 mcg-4.8 mcg HFA aerosol inhaler RxNorm: 8809153 2 Puff(s) INH BID 02/19/2019 12/23/2019 Inactive ProAir HFA 90 mcg/actuation aerosol inhaler RxNorm: 149454 2 Puff(s) INH Q4H as needed 02/19/2019 09/24/2019 Inactive metoprolol tartrate 25 mg tablet RxNorm: 187449 1/2 Tablet(s) PO BI D 02/18/2019 05/18/2019 Inactive pravastatin 20 mg tablet RxNorm: 604489 1 Tablet(s) PO QD Needs updated fasting labs 01/13/2019 04/14/2019 Inactive Needs updated fa sting labs Singulair 10 mg tablet RxNorm: 565928 Tablet(s) 1 TABLET(S) PO QD 0 01/13/2019 04/12/2019 Inactive Plavix 75 mg tablet RxNorm: 151874 Tablet(s) 1 TABLET(S) PO QD 04/201906/20/2019 Inactive [SAVINGS FOR NON-COVERED SHANDA GS -- BIN:994416, PCN: ASPROD1, Group: XXXXX, ID# [id number], Questions: . THIS IS NOT INSURANCE.] Singulair 10 mg tablet RxNorm: 391084 1 TABLET(S) PO QD 10/29/2018 Inactive primidone 50 mg tablet RxNorm: 032336 2 TABLET(S) PO BI D TAKE 2 TABLETS BY MOUTH EVERY NIGHT AT BEDTIME 10/07/2018 01/12/2019 Inactive Patient requests 90 days supply pravastatin 20 mg tablet RxNorm: 353055 1 TABLET(S) PO QD 09/23/2018 01/12/2019 Inactive clonazepam 1 mg tablet RxNorm: 675981 1 Tablet(s) PO QAM 09/19/2018 0 12/17/2018 Inactive primidone 50 mg tablet RxNorm: 054974 TABLET(S) TAKE 2 TABLETS BY MOUTH EVERY NIGHT AT BEDTIME 09/18/2018 01/12/2019 Inactive ciprofloxacin 0.2 % ear drops in a dropperette RxNorm: 49306 6 2 Drop(s) left otic (ear) BID 09/03/2018 09/09/2018 Inactive primidone 50 mg tablet RxNorm: 641876 2 Tablet(s) PO BI D TAKE 2 TABLETS BY MOUTH EVERY NIGHT AT BEDTIME 08/26/2018 10/06/2018 Inactive Ambien 5 mg tablet RxNorm: 585096 TAKE 1 TABLET BY MOUTH EVERY NIGHT AT BEDTIME 08/05/2018 09/03/2018 Inactive Singulair 10 mg tablet RxNorm: 361260 1 TABLET(S) PO QD 07/23/2018 Inactive clonazepam 1 mg tablet RxNorm: 229322 TAKE 1 TABLET BY MOUTH EV SUSAN MORNING 07/23/2018 08/21/2018 Inactive Plavix 75 mg tablet RxNorm: 072256 1 TABLET(S) PO QD 07/04/201812/22 Inactive [SAVINGS FOR NON-COVERED DRUGS -- BIN:00 3585, PCN: ASPROD1, Group: XXXXX, ID# [id number], Questions: . THIS IS NOT INSURANCE.] clonazepam 1 mg tablet RxNorm: 835704 TAKE 1 TABLET BY MOUTH EV SUSAN MORNING 06/25/2018 07/23/2018 Inactive clonazepam 1 mg tablet RxNorm: 134374 TAKE 1 TABLET BY MOUTH EV SUSAN MORNING 05/23/2018 06/21/2018 Inactive primidone 50 mg tablet RxNorm: 388795 Tablet(s) TAKE 2 TABLETS BY MOUTH EVERY NIGHT AT BEDTIME 05/16/2018 08/25/2018 Inactive oxycodone-acetaminophen 7.5 mg-325 mg tablet RxNorm: 2328870 1-2 Tablet(s) PO TID as needed 04/25/2018 05/24/2018 Inactive Singulair 10 mg tablet RxNorm: 603539 1 Tablet(s) PO QD 04/25/2018 Inactive Medrol (Jose) 4 mg tablets in a dose pack RxNorm: 848644 Tablet(s) PO take as directed 04/25/2018 09/02/2018 Inactive clonazepam 1 mg tablet RxNorm: 004179 TAKE 1 TABLET BY MOUTH EV SUSAN MORNING 04/24/2018 05/22/2018 Inactive Plavix 75 mg tablet RxNorm: 474823 1 TABLET(S) PO QD 04/04/201807/02 Inactive [SAVINGS FOR NON-COVERED DRUGS -- BIN:00 3585, PCN: ASPROD1, Group: XXXXX, ID# [id number], Questions: . THIS IS NOT INSURANCE.] pravastatin 20 mg tablet RxNorm: 806696 1 Tablet(s) PO QD 03/21/2018 09/16/2018 Inactive ProAir HFA 90 mcg/actuation aerosol inhaler RxNorm: 869333 2 Puff(s) INH Q4H as needed 03/18/2018 03/17/2018 Inactive tamsulosin 0.4 mg capsule RxNorm: 950364 1 CAPSULE(S) PO QD 018 01/12/2019 Inactive clonazepam 1 mg tablet RxNorm: 584115 1 Tablet(s) PO QAM 02/25/2018 0 04/25/2018 Inactive tamsulosin 0.4 mg capsule RxNorm: 811640 1 Capsule(s) PO QD 018 03/13/2018 Inactive tamsulosin 0.4 mg capsule RxNorm: 036164 1 Capsule(s) PO QD 018 02/03/2018 Inactive tamsulosin 0.4 mg capsule RxNorm: 113052 1 Capsule(s) PO QD 018 02/12/2018 Inactive Ambien 5 mg tablet RxNorm: 103491 Tablet(s) TAKE 1 TAB LET BY MOUTH EVERY NIGHT AT BEDTIME 01/24/2018 08/05/2018 Inactive primidone 50 mg tablet RxNorm: 837350 Tablet(s) TAKE 2 TABLETS BY MOUTH EVERY NIGHT AT BEDTIME 01/18/2018 05/16/2018 Inactive cyclobenzaprine 10 mg tablet RxNorm: 321097 1 Tablet(s) PO TID as needed for muscle spasm 01/11/2018 02/09/2018 Inactive [SAVINGS FOR NON -COVERED DRUGS -- BIN:835745, N: ASPROD1, Group: XXXXX, ID# [id number], Questions: . THIS IS NOT INSURANCE.] clonazepam 1 mg tablet RxNorm: 415414 1 Tablet(s) PO QAM 12/24/2017 0 02/21/2018 Inactive prednisone 20 mg tablet RxNorm: 472262 1 Tablet(s) PO QD 11/06/2017 0 11/10/2017 Inactive EpiPen 2-Jose 0.3 mg/0.3 mL injection, auto-injector RxNorm: 481702 1 Unit Dose IM as needed 11/06/2017 09/24/2019 Inactive ProAir HFA 90 mcg/actuation aerosol inhaler RxNorm: 799265 2 Puff(s) INH Q4H as needed 10/30/2017 03/17/2018 Inactive primidone 50 mg tablet RxNorm: 543186 TAKE 2 TABLETS BY MOUTH EVERY NIGHT AT BEDTIME 10/15/2017 01/17/2018 Inactive Plavix 75 mg tablet RxNorm: 440407 1 Tablet(s) PO QD 10/01/201703/29 Inactive [SAVINGS FOR NON-COVERED DRUGS -- BIN:00 3585, PCN: ASPROD1, Group: XXXXX, ID# [id number], Questions: . THIS IS NOT INSURANCE.] clonazepam 1 mg tablet RxNorm: 245435 1 Tablet(s) PO QAM 09/19/2017 0 12/16/2017 Inactive primidone 50 mg tablet RxNorm: 236633 2 Tablet(s) PO QHS 08/29/2017 0 01/18/2018 Inactive oxycodone-acetaminophen 7.5 mg-325 mg tablet RxNorm: 8216822 1-2 Tablet(s) PO TID as needed 08/22/2017 09/19/2017 Inactive pravastatin 20 mg tablet RxNorm: 558059 1 Tablet(s) PO QD 08/21/2017 03/21/2018 Inactive carvedilol 3.125 mg tablet RxNorm: 177454 1 Tablet(s) P O BID to replace 6.25mg dose 08/21/2017 09/02/2017 Inactive primidone 50 mg tablet RxNorm: 632396 TAKE 2 TABLETS BY MOUTH EVERY NIGHT AT BEDTIME 06/18/2017 08/28/2017 Inactive clonazepam 1 mg tablet RxNorm: 704598 1 Tablet(s) PO QAM 06/04/2017 1 11/02/2016 Inactive Plavix 75 mg tablet RxNorm: 060141 1 Tablet(s) PO QD 04/10/201710/01 Inactive [SAVINGS FOR NON-COVERED DRUGS -- BIN:00 3585, PCN: ASPROD1, Group: XXXXX, ID# [id number], Questions: . THIS IS NOT INSURANCE.] pravastatin 20 mg tablet RxNorm: 558968 1 Tablet(s) PO QD 02/26/2017 08/24/2017 Inactive carvedilol 3.125 mg tablet RxNorm: 802150 1 Tablet(s) P O BID to replace 6.25mg dose 02/26/2017 08/21/2017 Inactive Ultram 50 mg tablet RxNorm: 047814 TAKE 1 TO 2 TABLETS BY MOUTH THREE TIMES DAILY NEEDED FOR PAIN 02/26/2017 03/07/2017 Inactive pravastatin 20 mg tablet RxNorm: 981335 1 Tablet(s) PO QD 02/26/2017 08/21/2017 Inactive carvedilol 3.125 mg tablet RxNorm: 330439 1 Tablet(s) P O BID to replace 6.25mg dose 02/26/2017 08/20/2017 Inactive clonazepam 0.5 mg tablet RxNorm: 439101 1 Tablet(s) PO QAM 02/14/20 17 02/13/2017 Inactive primidone 50 mg tablet RxNorm: 880913 1 Tablet(s) PO QHS 02/13/2017 0 05/01/2017 Inactive clonazepam 1 mg tablet RxNorm: 251996 1 Tablet(s) PO QAM 02/13/2017 0 05/13/2017 Inactive primidone 50 mg tablet RxNorm: 328879 1/2 Tablet(s) PO QD for 7 days then increase to 1 tablet at bedtime 01/09/2017 02/12/2017 Inactive pravastatin 20 mg tablet RxNorm: 149302 Tablet(s) 1 TABLET(S) PO QD 11/29/2016 02/25/2017 Inactive clonazepam 1 mg tablet RxNorm: 511316 1 Tablet(s) PO BID replac es 0.5mg dose 11/23/2016 01/08/2017 Inactive pravastatin 20 mg tablet RxNorm: 626203 1 TABLET(S) PO QD 11/17/2016 11/28/2016 Inactive Ambien 5 mg tablet RxNorm: 930647 TAKE 1 TABLET BY MOUTH EVERY NIGHT AT BEDTIME 11/17/2016 12/14/2016 Inactive clonazepam 0.5 mg tablet RxNorm: 484885 TAKE 1 TABLET BY MOUTH TWICE DAILY 11/17/2016 11/22/2016 Inactive Plavix 75 mg tablet RxNorm: 005930 1 Tablet(s) PO QD 11/06/201604/09 Inactive [SAVINGS FOR NON-COVERED DRUGS -- BIN:00 3585, PCN: ASPROD1, Group: XXXXX, ID# [id number], Questions: . THIS IS NOT INSURANCE.] Plavix 75 mg tablet RxNorm: 632884 1 Tablet(s) PO QD 08/28/201611/05 Inactive [SAVINGS FOR NON-COVERED DRUGS -- BIN:00 3585, PCN: ASPROD1, Group: XXXXX, ID# [id number], Questions: . THIS IS NOT INSURANCE.] Lidoderm 5 % topical patch RxNorm: 9650802 Application T OP 2 patches for 12hrs then off for 12hrs 08/28/2016 08/27/2016 Inactive clonazepam 0.5 mg tablet RxNorm: 246578 1 Tablet(s) PO BID 08/07/20 16 11/22/2016 Inactive pravastatin 20 mg tablet RxNorm: 924651 1 Tablet(s) PO QD 08/07/2016 11/04/2016 Inactive cyclobenzaprine 10 mg tablet RxNorm: 620624 1 Tablet(s) PO TID as needed for muscle spasm 08/07/2016 09/05/2016 Inactive [SAVINGS FOR NON -COVERED DRUGS -- BIN:437172, PCN: ASPROD1, Group: XXXXX, ID# [id number], Questions: . THIS IS NOT INSURANCE.] Plavix 75 mg tablet RxNorm: 430408 1 Tablet(s) PO QD 08/07/201608/27 Inactive [SAVINGS FOR NON-COVERED DRUGS -- BIN: 3585, PCN: ASPROD1, Group: XXXXX, ID# [id number], Questions: . THIS IS NOT INSURANCE.] carvedilol 3.125 mg tablet RxNorm: 521539 1 Tablet(s) P O BID to replace 6.25mg dose 08/07/2016 02/02/2017 Inactive clonazepam 0.5 mg tablet RxNorm: 548372 1 Tablet(s) PO BID 07/04/20 16 08/07/2016 Inactive Plavix 75 mg tablet RxNorm: 341144 1 TABLET(S) PO QD 06/20/201608/06 Inactive [SAVINGS FOR NON-COVERED DRUGS -- BIN: 3585, PCN: ASPROD1, Group: XXXXX, ID# [id number], Questions: . THIS IS NOT INSURANCE.] clonazepam 0.5 mg tablet RxNorm: 420450 1 Tablet(s) PO BID 06/09/20 16 07/03/2016 Inactive pravastatin 20 mg tablet RxNorm: 599843 1 Tablet(s) PO QD 05/23/2016 08/06/2016 Inactive pravastatin 20 mg tablet RxNorm: 243735 1 Tablet(s) PO QD 05/23/2016 05/22/2016 Inactive carvedilol 3.125 mg tablet RxNorm: 789207 1 Tablet(s) P O BID to replace 6.25mg dose 05/10/2016 08/06/2016 Inactive carvedilol 3.125 mg tablet RxNorm: 127539 1 Tablet(s) P O BID to replace 6.25mg dose 05/10/2016 05/09/2016 Inactive clonazepam 0.5 mg tablet RxNorm: 276074 1 Tablet(s) PO BID 05/10/20 16 06/08/2016 Inactive carvedilol 6.25 mg tablet RxNorm: 621189 1 Tablet(s) PO QD 05/10/20 16 05/10/2016 Inactive simvastatin 40 mg tablet RxNorm: 452713 1 TABLET(S) PO QD 04/10/2016 05/09/2016 Inactive Medrol (Jose) 4 mg tablets in a dose pack RxNorm: 588056 Tablet(s) PO As Directed 01/13/2016 05/09/2016 Inactive cyclobenzaprine 10 mg tablet RxNorm: 001396 1 TABLET(S) PO TID NEEDED FOR SPASM 01/11/2016 03/10/2016 Inactive [SAVINGS FOR NON -COVERED DRUGS -- BIN:877592, PCN: ASPROD1, Group: XXXXX, ID# [id number], Questions: . THIS IS NOT INSURANCE.] Plavix 75 mg tablet RxNorm: 769808 1 Tablet(s) PO QD 12/30/201506/19 Inactive [SAVINGS FOR NON-COVERED DRUGS -- BIN: 3585, PCN: ASPROD1, Group: XXXXX, ID# [id number], Questions: . THIS IS NOT INSURANCE.] Ambien 5 mg tablet RxNorm: 454879 TAKE 1 TABLET BY MOUTH EVERY DAY AT BEDTIME 11/15/2015 11/17/2016 Inactive simvastatin 40 mg tablet RxNorm: 690874 1 Tablet(s) PO QD 10/11/2015 01/12/2019 Inactive simvastatin 40 mg tablet RxNorm: 431329 1 Tablet(s) PO QD 10/08/2015 10/10/2015 Inactive Ambien 5 mg tablet RxNorm: 729514 TAKE 1 TABLET BY MOUTH EVERY NIGHT AT BEDTIME 07/27/2015 11/15/2015 Inactive Plavix 75 mg tablet RxNorm: 798879 1 Tablet(s) PO QD 06/28/201512/29 Inactive [SAVINGS FOR NON-COVERED DRUGS -- BIN:00 3585, PCN: ASPROD1, Group: XXXXX, ID# [id number], Questions: . THIS IS NOT INSURANCE.] Coreg 6.25 mg tablet RxNorm: 239085 1 TABLET(S) PO BID 04/19/2015 Inactive [SAVINGS FOR NON-COVERED DRUGS -- BIN:00 3585, PCN: ASPROD1, Group: XXXXX, ID# [id number], Questions: . THIS IS NOT INSURANCE.] simvastatin 40 mg tablet RxNorm: 585991 1 Tablet(s) PO QD 04/05/2015 04/04/2015 Inactive simvastatin 40 mg tablet RxNorm: 968739 1 Tablet(s) PO QD 04/05/2015 10/11/2015 Inactive Plavix 75 mg tablet RxNorm: 146308 1 TABLET(S) PO QD 03/22/201504/20 Inactive [SAVINGS FOR NON-COVERED DRUGS -- BIN:00 3585, PCN: ASPROD1, Group: XXXXX, ID# [id number], Questions: . THIS IS NOT INSURANCE.] Plavix 75 mg tablet RxNorm: 643226 1 Tablet(s) PO QD 03/22/201506/28 Inactive [SAVINGS FOR NON-COVERED DRUGS -- BIN:00 3585, PCN: ASPROD1, Group: XXXXX, ID# [id number], Questions: . THIS IS NOT INSURANCE.] Ambien 5 mg tablet RxNorm: 358441 1 Tablet(s) PO QHS 12/17/201407/28 Inactive [SAVINGS FOR NON-COVERED DRUGS -- BIN:00 3585, PCN: ASPROD1, Group: XXXXX, ID# [id number], Questions: . THIS IS NOT INSURANCE.] Coreg 6.25 mg tablet RxNorm: 837489 1 Tablet(s) PO BID 12/17/2014 Inactive [SAVINGS FOR NON-COVERED DRUGS -- BIN:00 3585, PCN: ASPROD1, Group: XXXXX, ID# [id number], Questions: . THIS IS NOT INSURANCE.] Plavix 75 mg tablet RxNorm: 808248 1 Tablet(s) PO QD 12/17/201403/16 Inactive [SAVINGS FOR NON-COVERED DRUGS -- BIN:00 3585, PCN: ASPROD1, Group: XXXXX, ID# [id number], Questions: . THIS IS NOT INSURANCE.] cyclobenzaprine 10 mg tablet RxNorm: 679615 1 Tablet(s) PO TID as needed for spasm 12/17/2014 03/16/2015 Inactive [SAVINGS FOR NON -COVERED DRUGS -- BIN:321975, PCN: ASPROD1, Group: XXXXX, ID# XXXXXXX, Questions: . THIS IS NOT INSURANCE.] Coreg 6.25 mg tablet RxNorm: 295295 1 Tablet(s) PO BID 10/21/201409/2014 Inactive [SAVINGS FOR NON-COVERED DRUGS -- BIN:00 3585, PCN: ASPROD1, Group: XXXXX, ID# XXXXXXX, Questions: . THIS IS NOT INSURANCE.] Plavix 75 mg tablet RxNorm: 396647 1 Tablet(s) PO QD 10/21/201412/16 Inactive [SAVINGS FOR NON-COVERED DRUGS -- BIN:00 3585, PCN: ASPROD1, Group: XXXXX, ID# XXXXXXX, Questions: . THIS IS NOT INSURANCE.] Plavix 75 mg tablet RxNorm: 703046 1 Tablet(s) PO QD Ne eds routine check up--last seen March 2012 09/21/2014 10/20/2014 Inactive [SAVINGS FOR UNINSURED PATIENTS -- BIN:671096, PCN: ASPROD1, Group: AME08, ID# [id number], Process claim through [employer], for questions: . THIS IS NOT INSURANCE.] Ambien 5 mg tablet RxNorm: 542696 1 Tablet(s) PO QHS 09/21/201412/16 Inactive [SAVINGS FOR UNINSURED PATIENTS -- BIN:0 50516, PCN: ASPROD1, Group: AME08, ID# [id number], Process claim through [employer], for questions: . THIS IS NOT INSURANCE.] Coreg 6.25 mg tablet RxNorm: 139218 1 Tablet(s) PO BID 09/21/201411/2014 Inactive [SAVINGS FOR UNINSURED PATIENTS -- BIN:0 67071, PCN: ASPROD1, Group: AME08, ID# [id number], Process claim through [employer], for questions: . THIS IS NOT INSURANCE.] Plavix 75 mg tablet RxNorm: 105235 1 Tablet(s) PO QD Ne eds routine check up--last seen March 2012 08/04/2014 09/02/2014 Inactive [SAVINGS FOR UNINSURED PATIENTS -- BIN:528662, PCN: ASPROD1, Group: AME08, ID# [id number], Process claim through [employer], for questions: . THIS IS NOT INSURANCE.] Plavix 75 mg tablet RxNorm: 365473 1 Tablet(s) PO QD Ne eds routine check up--last seen March 2012 08/03/2014 08/03/2014 Inactive Protonix 40 mg tablet,delayed release RxNorm: 048923 1 Tablet(s ) PO QD 06/08/2014 02/17/2019 Inactive [SAVINGS FOR UNINSUR ED PATIENTS -- BIN:290159, PCN: ASPROD1, Group: AME08, ID# [id number], Process claim through [employer], for questions: . THIS IS NOT INSURANCE.] hydrocodone 10 mg-acetaminophen 325 mg tablet RxNorm: 492126 1 Tablet(s) PO BID as needed for pain 02/18/2014 03/31/2015 Inactive Coreg 6.25 mg tablet RxNorm: 168179 1 Tablet(s) PO BID 02/02/2014 Inactive Protonix 40 mg granules delayed-release packet RxNorm: 343294 1 Tablet(s) PO QD 01/13/2014 06/08/2014 Inactive Plavix 75 mg tablet RxNorm: 964534 1 Tablet(s) PO QD Ne eds routine check up--last seen March 2012 01/13/2014 08/02/2014 Inactive Plavix 75 mg tablet RxNorm: 158882 1 Tablet(s) PO QD Ne eds routine check up--last seen March 2012 12/09/2013 01/07/2014 Inactive Coreg 6.25 mg tablet RxNorm: 404342 1 Tablet(s) PO BID 12/09/2013 Inactive Cymbalta 60 mg capsule,delayed release RxNorm: 066043 1 Capsule (s) PO QD 10/31/2013 01/12/2014 Inactive Coreg 6.25 mg tablet RxNorm: 841994 1 Tablet(s) PO BID 10/31/2013 Inactive Plavix 75 mg tablet RxNorm: 946978 1 Tablet(s) PO QD Ne eds routine check up--last seen March 2012 10/31/2013 11/29/2013 Inactive Coreg 6.25 mg tablet RxNorm: 557244 1 Tablet(s) PO BID 10/31/2013 Inactive atorvastatin 40 mg tablet RxNorm: 052695 1 Tablet(s) PO QD 10/31/1903/31/2015 Inactive Plavix 75 mg tablet RxNorm: 707529 1 Tablet(s) PO QD Ne eds routine check up--last seen March 2012 09/23/2013 10/30/2013 Inactive cyclobenzaprine 10 mg tablet RxNorm: 080404 1 Tablet(s) PO TID as needed for spasm 09/23/2013 No Stop Date Active cyclobenzaprine 10 mg tablet RxNorm: 981178 1 Tablet(s) PO TID as needed for spasm 07/04/2013 09/22/2013 Inactive atorvastatin 40 mg tablet RxNorm: 137042 1 Tablet(s) PO QD 06/23/20 13 10/30/2013 Inactive atorvastatin 40 mg tablet RxNorm: 612827 1 Tablet(s) PO QD 04/22/20 13 06/22/2013 Inactive Nucynta 50 mg tablet RxNorm: 131748 1-2 Tablet(s) PO Q6H as nee ded for pain 01/01/2013 01/12/2014 Inactive Ambien 5 mg tablet RxNorm: 107669 1 Tablet(s) PO QHS 10/16/201201/13 Inactive Plavix 75 mg tablet RxNorm: 947293 1 Tablet(s) PO QD 09/19/201209/13 Inactive Protonix 40 mg tablet,delayed release RxNorm: 462576 1 Tablet(s ) PO QD 09/19/2012 09/18/2012 Inactive simvastatin 40 mg tablet RxNorm: 278864 1 Tablet(s) PO QD 09/19/2012 02/23/2013 Inactive Protonix 40 mg tablet,delayed release RxNorm: 065876 1 Tablet(s ) PO QD 09/19/2012 09/13/2013 Inactive Ultram 50 mg tablet RxNorm: 370886 1-2 Tablet(s) PO QID as need ed for pain 09/19/2012 02/26/2017 Inactive propranolol 80 mg tablet RxNorm: 355818 1 Tablet(s) PO QHS 09/19/19 13 09/18/2012 Inactive Cymbalta 60 mg capsule,delayed release RxNorm: 992964 1 Capsule (s) PO QD 09/19/2012 09/18/2012 Inactive Cymbalta 60 mg capsule,delayed release RxNorm: 909729 1 Capsule (s) PO QD 09/19/2012 03/17/2013 Inactive propranolol 80 mg tablet RxNorm: 609235 1 Tablet(s) PO QHS 09/19/19 13 02/23/2013 Inactive hydrocodone-acetaminophen 10 mg-325 mg tablet RxNorm: 049452 2 1-2 Tablet(s) PO QID 07/25/2012 02/23/2013 Inactive Ambien 10 mg tablet RxNorm: 713008 1 Tablet(s) PO QHS as needed for sleep 07/10/2012 01/27/2013 Inactive propranolol 80 mg tablet RxNorm: 630192 1 Tablet(s) PO QHS 05/13/20 12 09/18/2012 Inactive hydrocodone-acetaminophen 10 mg-325 mg tablet RxNorm: 080320 2 1-2 Tablet(s) PO QID 05/02/2012 No Stop Date Active Restoril 15 mg Cap RxNorm: 346156 1-2 Capsule(s) PO QHS 05/02/2012 Inactive propranolol 80 mg tablet RxNorm: 271127 1 Tablet(s) PO QHS 05/02/20 12 05/12/2012 Inactive Chantix Starting Month Box 0.5 mg (11)-1 mg (42) Tabs in a Dose Pack RxNorm: 563667 Tablet(s) PO As Directed 04/01/2012 01/27/2013 Inactive simvastatin 40 mg tablet RxNorm: 522800 1 Tablet(s) PO QD 03/28/2012 09/18/2012 Inactive simvastatin 40 mg Tab RxNorm: 133699 1 Tablet(s) PO QD 03/22/201207/2012 Inactive Effient 10 mg Tab RxNorm: 588105 1 Tablet(s) PO QD 03/22/2012 012 Inactive Prilosec 40 mg Capsule, delayed release RxNorm: 377507 1 Capsul e(s) PO QD 03/22/2012 09/18/2012 Inactive Prilosec 40 mg Capsule, delayed release RxNorm: 248894 1 Capsul e(s) PO QD 03/19/2012 03/21/2012 Inactive Cymbalta 60 mg capsule,delayed release RxNorm: 323888 1 Capsule (s) PO QD 03/04/2012 08/30/2012 Inactive hydrocodone-acetaminophen 10 mg-325 mg Tab RxNorm: 6183932 1-2 T ablet(s) PO QID 01/23/2012 No Stop Date Active Cymbalta 60 mg Capsule, delayed release RxNorm: 625886 1 Capsul e(s) PO QD 01/23/2012 03/03/2012 Inactive Cipro 500 mg Tab RxNorm: 368761 1 Tablet(s) PO BID 12/20/2011 012 Inactive Cymbalta 60 mg Capsule, delayed release RxNorm: 765324 1 Capsul e(s) PO QD 12/13/2011 01/22/2012 Inactive nortriptyline 75 mg Cap RxNorm: 917265 1 Capsule(s) PO QHS 11/29/19 12 04/02/2012 Inactive Cymbalta 60 mg Cap RxNorm: 736521 1 Capsule(s) PO QD 10/24/201112/11 Inactive propranolol 80 mg Tab RxNorm: 864301 1 Tablet(s) PO QHS 10/24/2011 Inactive hydrocodone-acetaminophen 10 mg-325 mg Tab RxNorm: 0752697 1-2 T ablet(s) PO QID 09/29/2011 No Stop Date Active hydrocodone-acetaminophen 10 mg-325 mg Tab RxNorm: 3106491 1-2 T ablet(s) PO QID 07/25/2011 No Stop Date Active hydrocodone-acetaminophen 10 mg-325 mg Tab RxNorm: 1796081 1-2 T ablet(s) PO QID 02/14/2011 No Stop Date Active Prilosec 40 mg Cap RxNorm: 178534 1 Capsule(s) PO 01/03/2011 01/13/20 19 Inactive nortriptyline 75 mg Cap RxNorm: 632408 1 Capsule(s) PO QHS 01/04/20 11 07/01/2011 Inactive Neurontin 600 mg Tab RxNorm: 477009 1 Tablet(s) PO QHS 12/08/201011/2011 Inactive hydrocodone-acetaminophen 5 mg-500 mg Tab RxNorm: 990414 2 Tablet(s) PO Q4-6H prn 10/20/2010 01/08/2011 Inactive Diltzac ER 240 mg Cap RxNorm: 588998 1 Capsule(s) PO QD 07/14/2010 Inactive Nortriptyline 75 mg Cap RxNorm: 543099 1 Capsule(s) PO QHS 05/09/20 10 01/12/2019 Inactive Neurontin 600 mg Tab RxNorm: 719000 1 Tablet(s) PO QD 03/17/201012/17 Inactive Nortriptyline 75 mg Cap RxNorm: 290287 1 Capsule(s) PO 01/12/2010 Inactive Nortriptyline 50 mg Cap RxNorm: 553878 1 Capsule(s) PO QHS 01/13/20 10 01/11/2010 Inactive Diltzac ER 240 mg Cap RxNorm: 626233 1 Capsule(s) PO QD 12/06/2009 Inactive aspirin 81 mg Tab RxNorm: 353108 1 Tablet(s) PO QD No Start Date Active Vitamin D3 2,000 unit tablet RxNorm: 459464 1 Tablet(s) PO QD No Star t Date Active [id number]-[id number]-[id number] complex no.233 oral RxNorm: oral No Start Date Active primidone 50 mg tablet RxNorm: 100383 2 Tablet(s) PO BID No Start Date Active Prilosec 40 mg Capsule, delayed release RxNorm: 200970 1 Capsul e(s) PO QD No Start Date 03/18/2012 Inactive Prilosec 20 mg Cap RxNorm: 427719 1 Capsule(s) PO QHS No Start Date 0 01/02/2011 Inactive primidone 50 mg tablet RxNorm: 875062 1/2 Tablet(s) PO QHS for 1week then go full tab if needed No Start Date 05/01/2017 Inactive ProAir HFA 90 mcg/actuation aerosol inhaler RxNorm: 538819 2 Puff(s) INH Q4H as needed No Start Date 10/29/2017 Inactive clonazepam 0.5 mg tablet RxNorm: 556520 1/2 Tablet(s) PO BID No Sta rt Date 02/12/2017 Inactive Pepcid AC 10 mg Tab RxNorm: 637510 1 Tablet(s) PO QAM No Start Date 0 02/19/2011 Inactive Coreg Oral RxNorm: Oral No Start Date 01/12/2014 Inactive primidone 50 mg tablet RxNorm: 379812 1/2 Tablet(s) PO QD for 7 days then increase to 1 tablet at bedtime No Start Date 01/08/2017 Inactive Medrol (Jose) 4 mg tablets in a dose pack RxNorm: 508711 Tablet(s) PO As Directed No Start Date 01/12/2016 Inactive Plavix 75 mg tablet RxNorm: 513781 1 Tablet(s) PO QD No Start Date Inactive cyclobenzaprine 10 mg tablet RxNorm: 240429 1 Tablet(s) PO TID as needed for spasm No Start Date 07/03/2013 Inactive Bevespi Aerosphere 9 mcg-4.8 mcg HFA aerosol inhaler RxNorm: 4707328 2 Puff(s) INH BID No Start Date 02/18/2019 Inactive tramadol 50 mg tablet RxNorm: 353038 1-2 Tablet(s) PO TID as ne eded for pain No Start Date 01/12/2019 Inactive clonazepam 1 mg tablet RxNorm: 372893 1 Tablet(s) PO QAM No Start D ate 09/18/2018 Inactive hydrocodone-acetaminophen 5 mg-500 mg Tab RxNorm: 179392 2 Tablet(s) PO Q4-6H prn No Start Date 10/19/2010 Inactive lisinopril 20 mg Tab RxNorm: 339914 1/2 Tablet(s) PO QD No Start Da te 03/12/2011 Inactive Lyrica 75 mg capsule RxNorm: 827180 1 Capsule(s) PO QHS No Start Da te 10/08/2019 Inactive Protonix 40 mg tablet,delayed release RxNorm: 919325 1 Tablet(s ) PO QD No Start Date 06/07/2014 Inactive Lipitor Oral RxNorm: Oral No Start Date 01/12/2014 Inactive primidone 50 mg tablet RxNorm: 856207 2 Tablet(s) PO QAM and 1 tablet at HS No Start Date 02/17/2019 Inactive hydrocodone-acetaminophen 10 mg-325 mg Tab RxNorm: 8998654 1-2 T ablet(s) PO QID No Start Date 02/13/2011 Inactive Ultram 50 mg tablet RxNorm: 324695 1-2 Tablet(s) PO QID as need ed for pain No Start Date 09/18/2012 Inactive Effient 10 mg Tab RxNorm: 775192 1 Tablet(s) PO QD No Start Date 01/2012 Inactive Bevespi Aerosphere 9 mcg-4.8 mcg HFA aerosol inhaler RxNorm: 3394235 2 Puff(s) INH BID No Start Date 10/29/2017 Inactive Neurontin Oral RxNorm: Oral No Start Date 01/12/2010 Inactive primidone 50 mg tablet RxNorm: 804009 1 Tablet(s) PO QD No Start Da te 01/12/2019 Inactive Chantix Starting Month Box 0.5 mg (11)-1 mg (42) Tabs in a Dose Pack RxNorm: 138233 Tablet(s) PO No Start Date 03/31/2012 Inactive atenolol 25 mg Tab RxNorm: 164803 1 Tablet(s) PO QD No Start Date 02/2012 Inactive Neurontin 600 mg Tab RxNorm: 309630 1 Tablet(s) PO QD No Start Date 0 03/16/2010 Inactive Nucynta 50 mg tablet RxNorm: 891269 1-2 Tablet(s) PO Q6H as nee ded for pain No Start Date 12/31/2012 Inactive simvastatin 40 mg Tab RxNorm: 471703 1 Tablet(s) PO QD No Start Date 03/21/2012 Inactive Medication Administered No Medication Administered data Immunizations Vaccine Codes Date Status Influenza CVX: 135 07/04/2017 Complete Results Observation Observation Code Item Item Code Result Date [facility] Location COMPLETE BLOOD COUNT [id number] WBC 4.9 10e9/L 09/30/19 20 Unknown COMPLETE BLOOD COUNT [id number] RBC 4.65 10e12/L 2019 Unknown COMPLETE BLOOD COUNT [id number] HEMOGLOBIN 13.8 g/dL 09/30/19 20 Unknown COMPLETE BLOOD COUNT [id number] HEMATOCRIT 42.3 % 09/30/19 20 Unknown COMPLETE BLOOD COUNT [id number] MCV 91.0 fL 0 Unknown COMPLETE BLOOD COUNT [id number] MCH 29.7 pg 0 Unknown COMPLETE BLOOD COUNT [id number] MCHC 32.6 g/dL 0 Unknown COMPLETE BLOOD COUNT [id number] PLATELET COUNT 230 10e9/L Unknown COMPLETE BLOOD COUNT 1712603 Mean Plt Volume 9.9 fL Unknown COMPLETE BLOOD COUNT [id number] Neut Auto 52.5 % 0 Unknown COMPLETE BLOOD COUNT [id number] Lymph Auto 30.8 % 09/30/19 20 Unknown COMPLETE BLOOD COUNT 3116204 [place] Auto 11.2 % 0 Unknown COMPLETE BLOOD COUNT [id number] RDW 13.5 % 0 Unknown COMPLETE BLOOD COUNT [id number] Eos Auto 5.1 % 0 Unknown COMPLETE BLOOD COUNT [id number] Baso Auto 0.4 % 0 Unknown COMPLETE BLOOD COUNT [id number] Neutrophil Abs 2.57 10e9/L Unknown COMPLETE BLOOD COUNT [id number] Lymphocyte Abs 1.51 10e9/L Unknown COMPLETE BLOOD COUNT [id number] Monocyte Abs 0.55 10e9/L 09/17 Unknown COMPLETE BLOOD COUNT [id number] Eosinophil Abs 0.25 10e9/L Unknown COMPLETE BLOOD COUNT [id number] RDW-SD 43.9 fL 0 Unknown COMPLETE BLOOD COUNT [id number] Basophil Abs 0.02 10e9/L 09/17 Unknown GFR CALC 3671932 GFR Non Afr Amr >60 mL/min 09/30/2019 Un known GFR CALC 9931762 GFR Afr Amr >60 mL/min 09/30/2019 Unknow n THYROID STIMULATING HORMONE 17120 TSH 1.129 uIU/mL 09/30/2019 Unknown PSA EQUIMOLAR BARBIE 05534 PSA Total 0.77 ng/mL 0 Unknown [facility] 76704 Cholesterol 192 mg/dL 09/30/2019 Unkno wn L[facility] GROUP 06129 Triglyceride 86 mg/dL 09/30/2019 Unkn own L[facility] GROUP 17772 HDL CHOLESTEROL 64 mg/dL 09/30/2019 U nknown L[facility] GROUP 75235 Chol/HDL Ratio 3.00 ratio 09/30/2019 U nknown L[facility] GROUP 90228 NON-HDL Chol 128 mg/dL 09/30/2019 Unkn own LIP[facility] GROUP 46110 LDL Cholesterol 111 mg/dL 09/30/2019 U nknown COMPREHENSIVE METABOLIC 53915 AST 17 U/L 2019 Unknown COMPREHENSIVE METABOLIC 66894 ALT 10 U/L 2019 Unknown COMPREHENSIVE METABOLIC 80166 BUN 13 mg/dL 2019 Unknown COMPREHENSIVE METABOLIC 19509 ALBUMIN 4.3 g/dL 2019 Unknown COMPREHENSIVE METABOLIC 08322 CHLORIDE 102 mmol/L 09/30 Unknown COMPREHENSIVE METABOLIC 82326 Bili Total 0.6 mg/dL 09/30 Unknown COMPREHENSIVE METABOLIC 67595 ALK PHOS 91 U/L 2019 Unknown COMPREHENSIVE METABOLIC 08789 SODIUM 138 mmol/L 09/30 Unknown COMPREHENSIVE METABOLIC 74924 CREATININE 1.09 mg/dL 09/17 Unknown COMPREHENSIVE METABOLIC 22945 CALCIUM 9.0 mg/dL 2019 Unknown COMPREHENSIVE METABOLIC 95432 POTASSIUM 4.5 mmol/L 09/30 Unknown COMPREHENSIVE METABOLIC 86377 Total Protein 6.8 g/dL Unknown COMPREHENSIVE METABOLIC 21214 Glucose 91 mg/dL 2019 Unknown COMPREHENSIVE METABOLIC 36790 Bicarbonate 28 mmol/L 09/17 Unknown COMPREHENSIVE METABOLIC 11425 AGAP 8 mmol/L 2019 Unknown COMPLETE BLOOD COUNT [id number] WBC 4.9 10e9/L 09/04/20 18 Unknown COMPLETE BLOOD COUNT [id number] RBC 4.42 10e12/L 2017 Unknown COMPLETE BLOOD COUNT 8158157 HEMOGLOBIN 13.4 g/dL 09/04/20 18 Unknown COMPLETE BLOOD COUNT [id number] HEMATOCRIT 40.5 % 09/04/20 18 Unknown COMPLETE BLOOD COUNT [id number] MCV 91.6 fL 8 Unknown COMPLETE BLOOD COUNT [id number] MCH 30.3 pg 8 Unknown COMPLETE BLOOD COUNT 0625437 MCHC 33.1 g/dL 8 Unknown COMPLETE BLOOD COUNT 0970744 PLATELET COUNT 224 10e9/L Unknown COMPLETE BLOOD COUNT 6171298 Mean Plt Volume 9.9 fL Unknown COMPLETE BLOOD COUNT 1169732 Neut Auto 60.8 % 8 Unknown COMPLETE BLOOD COUNT 2373213 Lymph Auto 26.8 % 09/04/20 18 Unknown COMPLETE BLOOD COUNT 1100496 [place] Auto 10.4 % 8 Unknown COMPLETE BLOOD COUNT [id number] RDW 12.8 % 8 Unknown COMPLETE BLOOD COUNT 4092737 Eos Auto 1.6 % 8 Unknown COMPLETE BLOOD COUNT 1989964 Baso Auto 0.4 % 8 Unknown COMPLETE BLOOD COUNT 9568459 Neutrophil Abs 2.98 10e9/L Unknown COMPLETE BLOOD COUNT 1671111 Lymphocyte Abs 1.31 10e9/L Unknown COMPLETE BLOOD COUNT [id number] Monocyte Abs 0.51 10e9/L 08/17 Unknown COMPLETE BLOOD COUNT [id number] Eosinophil Abs 0.08 10e9/L Unknown COMPLETE BLOOD COUNT 9307708 RDW-SD 41.6 fL 8 Unknown COMPLETE BLOOD COUNT [id number] Basophil Abs 0.02 10e9/L 08/17 Unknown COMPREHENSIVE METABOLIC 58790 AST 16 U/L 2017 Unknown COMPREHENSIVE METABOLIC 51401 ALT 8 U/L 2017 Unknown COMPREHENSIVE METABOLIC 16698 BUN 12 mg/dL 2017 Unknown COMPREHENSIVE METABOLIC 81910 ALBUMIN 4.4 g/dL 2017 Unknown COMPREHENSIVE METABOLIC 70229 CHLORIDE 107 mmol/L 09/04 Unknown COMPREHENSIVE METABOLIC 49947 Bili Total 1.0 mg/dL 09/04 Unknown COMPREHENSIVE METABOLIC 36353 ALK PHOS 58 U/L 2017 Unknown COMPREHENSIVE METABOLIC 75694 SODIUM 142 mmol/L 09/04 Unknown COMPREHENSIVE METABOLIC 81762 CREATININE 0.97 mg/dL 08/17 Unknown COMPREHENSIVE METABOLIC 27418 CALCIUM 9.2 mg/dL 2017 Unknown COMPREHENSIVE METABOLIC 47700 POTASSIUM 4.6 mmol/L 09/04 Unknown COMPREHENSIVE METABOLIC 96505 Total Protein 6.5 g/dL Unknown COMPREHENSIVE METABOLIC 07320 Glucose 96 mg/dL 2017 Unknown COMPREHENSIVE METABOLIC 40373 Bicarbonate 29 mmol/L 08/17 Unknown COMPREHENSIVE METABOLIC 10450 AGAP 6 mmol/L 2017 Unknown LIPID GROUP 14754 Cholesterol 182 mg/dL 09/04/2018 Unkno wn LIPID GROUP 26304 Triglyceride 84 mg/dL 09/04/2018 Unkn own LIP[facility] GROUP 26210 HDL CHOLESTEROL 76 mg/dL 09/04/2018 U nknown LIPID GROUP 69438 Chol/HDL Ratio 2.39 ratio 09/04/2018 U nknown LIPID GROUP 31620 NON-HDL Chol 106 mg/dL 09/04/2018 Unkn own LIPID GROUP 26692 LDL Cholesterol 89 mg/dL 09/04/2018 U nknown GFR CALC 2963706 GFR Non Afr Amr >60 mL/min 09/04/2018 Un known GFR CALC 7361633 GFR Afr Amr >60 mL/min 09/04/2018 Unknow n THYROID STIMULATING HORMONE 06205 TSH 0.713 uIU/mL 09/04/2018 Unknown PSA EQUIMOLAR BARBIE 22316 PSA Total 0.66 ng/mL 8 Unknown A FOOD C P [id number] [place] Cl Class 0 11/17/2017 Unknown A FOOD C P [id number] [place] Ct <0.35 kU/L 11/17/2017 Unknow n A FOOD C P [id number] [place] Cl Class 0 11/17/2017 Unkn own A FOOD C P [id number] [place] <0.35 kU/L 11/17/2017 Unk nown A FOOD C P [id number] [place] Cl Class 0 11/17/2017 Unkno wn A FOOD C P 9589034 Egg White Ct <0.35 kU/L 11/17/2017 Unkn own A FOOD C P 8096082 Egg Yolk Cl Class 0 11/17/2017 Unknow n A FOOD C P 4748509 Egg Yolk Ct <0.35 kU/L 11/17/2017 Unkno wn A FOOD C P 6197124 Cow Milk Cl Class 0 11/17/2017 Unknow n A FOOD C P [id number] Cow Milk Ct <0.35 kU/L 11/17/2017 Unkno wn A FOOD C P [id number] Peanut Cl Class 0 11/17/2017 Unknown A FOOD C P [id number] Peanut Ct <0.35 kU/L 11/17/2017 Unknown A FOOD C P 2327812 Sh[place] Cl Class 0 11/17/2017 Unknown A FOOD C P [id number] [place] Ct <0.35 kU/L 11/17/2017 Unknown A FOOD C P 0570603 [place] Cl Class 0 11/17/2017 Unknown A FOOD C P 5731985 [place] Ct <0.35 kU/L 11/17/2017 Unknow n A FOOD C P 1275021 Wheat Cl Class 0 11/17/2017 Unknown A FOOD C P 8600013 Wheat Ct <0.35 kU/L 11/17/2017 Unknown A FOOD C P 5668124 Potato Cl Class 0 11/17/2017 Unknown A FOOD C P 4617705 Potato Ct <0.35 kU/L 11/17/2017 Unknown A FOOD C P [id number] Beef Cl Class 2 11/17/2017 Unknown A FOOD C P 7770735 Beef Ct 0.88 kU/L 11/17/2017 Unknown A FOOD C P [id number] [place] Cl Class 0 11/17/2017 Unknown A FOOD C P 2198247 [place] Ct <0.35 kU/L 11/17/2017 Unknown A FOOD C P 7109033 Pork Cl Class 0 11/17/2017 Unknown A FOOD C P 8038805 [place] Ct <0.35 kU/L 11/17/2017 Unknown A FOOD C P [id number] [place] Cl Class 0 11/17/2017 Unknown A FOOD C P 9508261 [place] Ct <0.35 kU/L 11/17/2017 Unknown A FOOD C P [id number] [place] Cl Class 0 11/17/2017 Unkn own A FOOD C P [id number] [place] [facility] <0.35 kU/L 11/17/2017 Unk nown A FOOD C P [id number] [place] Cl Class 0 11/17/2017 Unknown A FOOD C P 8997841 [place] Ct <0.35 kU/L 11/17/2017 Unknown A FOOD C P 6330158 [place] Cl Class 0 11/17/2017 Unknown A FOOD C P [id number] [place] Ct <0.35 kU/L 11/17/2017 Unknown A FOOD C P 7480951 [place] [facility] Class 0 11/17/2017 Unknown A FOOD C P [id number] [place] CT <0.35 kU/L 11/17/2017 Unknown A FOOD C P 6267506 [place] Cl Class 0 11/17/2017 Unknown A FOOD C P 2500431 [place] Ct <0.35 kU/L 11/17/2017 Unknown A FOOD C P 6943704 Oat Cl Class 0 11/17/2017 Unknown A FOOD C P 9257791 Oat Ct <0.35 kU/L 11/17/2017 Unknown A FOOD C P [id number] [place] Cl Class 0 11/17/2017 Unknown A FOOD C P [id number] [place] [address] <0.35 kU/L 11/17/2017 Unknown A FOOD C P [id number] [place] CL Class 0 11/17/2017 Un known A FOOD C P [id number] [place] Ct <0.35 kU/L 11/17/2017 U nknown A FOOD C P [id number] [place] Cl Class 0 11/17/2017 Unknown A FOOD C P [id number] [place] Ct <0.35 kU/L 11/17/2017 Unknown A FOOD C P [id number] [place] Meat Cl Class 0 11/17/2017 Unkn own A FOOD C P [id number] [place] Ct <0.35 kU/L 11/17/2017 Unk nown A NUTS PNL 4403993 Pe[place] Cl Class 0 11/17/2017 Unknown A NUTS PNL 1325907 Pe[place] Ct <0.35 kU/L 11/17/2017 Unknown A NUTS PNL [id number] [place] Meat Cl Class 0 11/17/2017 Unk nown A NUTS PNL 5988244 [place] [facility] <0.35 kU/L 11/17/2017 Un known A NUTS PNL 0438330 [place] Cl Class 0 11/17/2017 Unkn own A NUTS PNL 0404721 [place] Ct <0.35 kU/L 11/17/2017 Unk nown A NUTS PNL 4791958 [place] Cl Class 0 11/17/2017 Unknown A NUTS PNL 4669754 [place] Ct <0.35 kU/L 11/17/2017 Unknown A NUTS PNL 8499173 [place] Cl Class 0 11/17/2017 Unknow n A NUTS PNL 0974521 [place] Ct <0.35 kU/L 11/17/2017 Unkno wn A NUTS PNL 6586362 [place] Cl Class 0 11/17/2017 Unkno wn A NUTS PNL 8445285 [place] Ct <0.35 kU/L 11/17/2017 Unkn own A NUTS PNL 2602172 [place] Cl Class 0 11/17/2017 Unknown A NUTS PNL 4990313 [place] Ct <0.35 kU/L 11/17/2017 Unknown A NUTS PNL [id number] [place] Cl Class 0 11/17/2017 Unkno wn A NUTS PNL 5670916 [place] Ct <0.35 kU/L 11/17/2017 Unkn own A NUTS PNL 0142275 Allergen Interp See Note 11/17/2017 Un known A FRT/VG P [id number] [place] Cl Class 0 11/17/2017 Unkn own A FRT/VG P [id number] [place] <0.35 kU/L 11/17/2017 Unk nown A FRT/VG P 8644950 [place] Cl Class 0 11/17/2017 Unknown A FRT/VG P [id number] [place] Ct <0.35 kU/L 11/17/2017 Unknown A FRT/VG P [id number] [place] Cl Class 0 11/17/2017 Unkn own A FRT/VG P [id number] [place] [facility] <0.35 kU/L 11/17/2017 Unk nown A FRT/VG P [id number] [place] Cl Class 0 11/17/2017 Unknown A FRT/VG P [id number] [place] Ct <0.35 kU/L 11/17/2017 Unknown A FRT/VG P [id number] [place] Cl Class 0 11/17/2017 Unknown A FRT/VG P [id number] [place] [address] <0.35 kU/L 11/17/2017 Unknown A FRT/VG P 7845841 [place] Cl Class 1 11/17/2017 Unknown A FRT/VG P [id number] [place] Ct 0.48 kU/L 11/17/2017 Unknown A FRT/VG P [id number] [place] Cl Class 0 11/17/2017 Unk nown A FRT/VG P [id number] [place] Ct <0.35 kU/L 11/17/2017 Un known A FRT/VG P [id number] [place] Cl Class 0 11/17/2017 Unk nown A FRT/VG P [id number] [place] Ct <0.35 kU/L 11/17/2017 Un known A FRT/VG P 2499907 [place] Cl Class 0 11/17/2017 Unknown A FRT/VG P 9700664 [place] Ct <0.35 kU/L 11/17/2017 Unknown A FRT/VG P 2476362 [place] Cl Class 0 11/17/2017 Unknown A FRT/VG P 8971726 [place] Ct <0.35 kU/L 11/17/2017 Unknown A FRT/VG P [id number] [place] Cl Class 0 11/17/2017 Unkn own A FRT/VG P [id number] [place] Ct <0.35 kU/L 11/17/2017 Unk nown A FRT/VG P [id number] [place] Cl Class 0 11/17/2017 Unkn own A FRT/VG P [id number] Swt [place] Ct <0.35 kU/L 11/17/2017 Unk nown THYROID STIMULATING HORMONE 89526 TSH 1.371 uIU/mL 09/03/2017 Unknown FREE T4 02735 T4 Free 1.26 ng/dL 09/03/2017 Unknown ASSAY TRIIODOTHYRONINE (T3) 45231 T3 Total 0.9 ng/mL Unknown COMPLETE BLOOD COUNT [id number] WBC 5.9 10e9/L 07/31/20 17 Unknown COMPLETE BLOOD COUNT [id number] RBC 4.64 10e12/L 2016 Unknown COMPLETE BLOOD COUNT 9934092 HEMOGLOBIN 14.2 g/dL 07/31/20 17 Unknown COMPLETE BLOOD COUNT 7911073 HEMATOCRIT 42.1 % 07/31/20 17 Unknown COMPLETE BLOOD COUNT 3645016 MCV 90.7 fL 7 Unknown COMPLETE BLOOD COUNT 6406119 MCH 30.6 pg 7 Unknown COMPLETE BLOOD COUNT 0405411 MCHC 33.7 g/dL 7 Unknown COMPLETE BLOOD COUNT 1391613 PLATELET COUNT 195 10e9/L Unknown COMPLETE BLOOD COUNT 0023807 Mean Plt Volume 10.0 fL Unknown COMPLETE BLOOD COUNT 4228807 Neut Auto 47.5 % 7 Unknown COMPLETE BLOOD COUNT [id number] Lymph Auto 37.4 % 07/31/20 17 Unknown COMPLETE BLOOD COUNT 4683712 [place] Auto 11.7 % 7 Unknown COMPLETE BLOOD COUNT 4384880 Eos Auto 3.2 % 7 Unknown COMPLETE BLOOD COUNT 3206082 RDW 12.8 % 7 Unknown COMPLETE BLOOD COUNT 0428079 Baso Auto 0.2 % 7 Unknown COMPLETE BLOOD COUNT 8278783 Neutrophil Abs 2.80 10e9/L Unknown COMPLETE BLOOD COUNT [id number] Lymphocyte Abs 2.21 10e9/L Unknown COMPLETE BLOOD COUNT [id number] Monocyte Abs 0.69 10e9/L 07/18 Unknown COMPLETE BLOOD COUNT 0124466 Eosinophil Abs 0.19 10e9/L Unknown COMPLETE BLOOD COUNT 0716742 RDW-SD 41.6 fL 7 Unknown COMPLETE BLOOD COUNT [id number] Basophil Abs 0.01 10e9/L 07/18 Unknown LIPID GROUP 80585 Cholesterol 186 mg/dL 07/31/2017 Unkno wn LIPID GROUP 83953 Triglyceride 129 mg/dL 07/31/2017 Unkn own LIPID GROUP 83828 HDL CHOLESTEROL 79 mg/dL 07/31/2017 U nknown LIPID GROUP 90410 Chol/HDL Ratio 2.35 ratio 07/31/2017 U nknown LIPID GROUP 19758 NON-HDL Chol 107 mg/dL 07/31/2017 Unkn own LIPID GROUP 61774 LDL Cholesterol 81 mg/dL 07/31/2017 U nknown GFR CALC 9420978 GFR Non Afr Amr >60 mL/min 07/31/2017 Un known GFR CALC [id number] GFR Afr Amr >60 mL/min 07/31/2017 Unknow n COMPREHENSIVE METABOLIC 42836 AST 19 U/L 2016 Unknown COMPREHENSIVE METABOLIC 56860 ALT 12 U/L 2016 Unknown COMPREHENSIVE METABOLIC 25283 BUN 15 mg/dL 2016 Unknown COMPREHENSIVE METABOLIC 54321 ALBUMIN 4.4 g/dL 2016 Unknown COMPREHENSIVE METABOLIC 74493 CHLORIDE 102 mmol/L 07/31 Unknown COMPREHENSIVE METABOLIC 05034 Bili Total 0.9 mg/dL 07/31 Unknown COMPREHENSIVE METABOLIC 76940 ALK PHOS 53 U/L 2016 Unknown COMPREHENSIVE METABOLIC 34603 SODIUM 138 mmol/L 07/31 Unknown COMPREHENSIVE METABOLIC 01536 CREATININE 1.06 mg/dL 07/18 Unknown COMPREHENSIVE METABOLIC 69635 CALCIUM 9.3 mg/dL 2016 Unknown COMPREHENSIVE METABOLIC 72753 POTASSIUM 4.0 mmol/L 07/31 Unknown COMPREHENSIVE METABOLIC 28309 Total Protein 6.8 g/dL Unknown COMPREHENSIVE METABOLIC 83482 Glucose 86 mg/dL 2016 Unknown COMPREHENSIVE METABOLIC 60739 Bicarbonate 28 mmol/L 07/18 Unknown COMPREHENSIVE METABOLIC 35508 AGAP 8 mmol/L 2016 Unknown COMPREHENSIVE METABOLIC 54054 AST 18 U/L 2015 Unknown COMPREHENSIVE METABOLIC 60760 ALT 9 U/L 2015 Unknown COMPREHENSIVE METABOLIC 39177 BUN 11 mg/dL 2015 Unknown COMPREHENSIVE METABOLIC 04174 ALBUMIN 4.2 g/dL 2015 Unknown COMPREHENSIVE METABOLIC 32017 CHLORIDE 104 mmol/L 05/19 Unknown COMPREHENSIVE METABOLIC 63841 Bili Total 1.2 mg/dL 05/19 Unknown COMPREHENSIVE METABOLIC 29826 ALK PHOS 54 U/L 2015 Unknown COMPREHENSIVE METABOLIC 07330 SODIUM 140 mmol/L 05/19 Unknown COMPREHENSIVE METABOLIC 18331 CREATININE 1.03 mg/dL 10/2015 Unknown COMPREHENSIVE METABOLIC 73253 CALCIUM 9.3 mg/dL 2015 Unknown COMPREHENSIVE METABOLIC 15476 POTASSIUM 4.9 mmol/L 05/19 Unknown COMPREHENSIVE METABOLIC 84927 Total Protein 6.7 g/dL Unknown COMPREHENSIVE METABOLIC 61010 Glucose 92 mg/dL 2015 Unknown COMPREHENSIVE METABOLIC 81297 Bicarbonate 28 mmol/L 10/2015 Unknown COMPREHENSIVE METABOLIC 51604 AGAP 8 mmol/L 2015 Unknown THYROID STIMULATING HORMONE 76857 TSH 1.545 uIU/mL 05/19/2016 Unknown GFR CALC 6269108 GFR Non Afr Amr >60 mL/min 05/19/2016 Un known GFR CALC 2955291 GFR Afr Amr >60 mL/min 05/19/2016 Unknow n VITAMIN B 12 03571 VITAMIN B12 298 pg/mL 05/19/2016 Unkn own COMPLETE BLOOD COUNT [id number] WBC 5.2 10e9/L 05/19/20 16 Unknown COMPLETE BLOOD COUNT 9125162 RBC 4.34 10e12/L 2015 Unknown COMPLETE BLOOD COUNT [id number] HEMOGLOBIN 12.9 g/dL 05/19/20 16 Unknown COMPLETE BLOOD COUNT 9260368 HEMATOCRIT 38.9 % 05/19/20 16 Unknown COMPLETE BLOOD COUNT 0570985 MCV 89.6 fL 6 Unknown COMPLETE BLOOD COUNT 3496525 MCH 29.7 pg 6 Unknown COMPLETE BLOOD COUNT 6987019 MCHC 33.2 g/dL 6 Unknown COMPLETE BLOOD COUNT [id number] PLATELET COUNT 200 10e9/L 10/2015 Unknown COMPLETE BLOOD COUNT 2300453 Mean Plt Volume 10.1 fL 10/2015 Unknown COMPLETE BLOOD COUNT 1401790 Neut Auto 45.4 % 6 Unknown COMPLETE BLOOD COUNT 5504788 Lymph Auto 35.6 % 05/19/20 16 Unknown COMPLETE BLOOD COUNT 7376765 [place] Auto 11.9 % 6 Unknown COMPLETE BLOOD COUNT 4172164 RDW 12.7 % 6 Unknown COMPLETE BLOOD COUNT 6317936 Eos Auto 6.7 % 6 Unknown COMPLETE BLOOD COUNT 2417812 Baso Auto 0.4 % 6 Unknown COMPLETE BLOOD COUNT 8610946 Neutrophil Abs 2.36 10e9/L Unknown COMPLETE BLOOD COUNT 3207687 Lymphocyte Abs 1.85 10e9/L Unknown COMPLETE BLOOD COUNT 8605102 Monocyte Abs 0.62 10e9/L 10/2015 Unknown COMPLETE BLOOD COUNT [id number] Eosinophil Abs 0.35 10e9/L Unknown COMPLETE BLOOD COUNT 5359343 RDW-SD 40.6 fL 6 Unknown COMPLETE BLOOD COUNT 2385867 Basophil Abs 0.02 10e9/L 10/2015 Unknown LIPID GROUP 59880 Cholesterol 197 mg/dL 05/19/2016 Unkno wn LIPID GROUP 67167 Triglyceride 92 mg/dL 05/19/2016 Unkn own LIPID GROUP 37568 HDL CHOLESTEROL 58 mg/dL 05/19/2016 U nknown LIPID GROUP 15865 Chol/HDL Ratio 3.40 ratio 05/19/2016 U nknown LIPID GROUP 34643 NON-HDL Chol 139 mg/dL 05/19/2016 Unkn own LIPID GROUP 08408 LDL Cholesterol 121 mg/dL 05/19/2016 U nknown FREE T4 61713 T4 Free 1.19 ng/dL 05/19/2016 Unknown COMPREHENSIVE METABOLIC 54246 AST 19 U/L 2014 Unknown COMPREHENSIVE METABOLIC 64388 ALT 10 IU/L 2014 Unknown COMPREHENSIVE METABOLIC 17232 BUN 20 MG/DL 2014 Unknown COMPREHENSIVE METABOLIC 28841 ALBUMIN 4.4 GM/DL 2014 Unknown COMPREHENSIVE METABOLIC 01100 CHLORIDE 104 MMOL/L 04/05 Unknown COMPREHENSIVE METABOLIC 19141 BILI TOT 2.2 MG/DL 2014 Unknown COMPREHENSIVE METABOLIC 92910 ALK PHOS 55 U/L 2014 Unknown COMPREHENSIVE METABOLIC 26622 SODIUM 138 MMOL/L 04/05 Unknown COMPREHENSIVE METABOLIC 38736 CREATININE 1.04 MG/DL 03/18 Unknown COMPREHENSIVE METABOLIC 05881 CALCIUM 9.3 MG/DL 2014 Unknown COMPREHENSIVE METABOLIC 77999 POTASSIUM 4.5 MMOL/L 04/05 Unknown COMPREHENSIVE METABOLIC 98257 PROT TOT 6.7 GM/DL 2014 Unknown COMPREHENSIVE METABOLIC 09833 Glucose 77 MG/DL 2014 Unknown COMPREHENSIVE METABOLIC 92127 BICARB 25 MMOL/L 2014 Unknown COMPREHENSIVE METABOLIC 23526 ANION GAP 9 MEQ/L 2014 Unknown GFR CALC 5887342 GFR AA >60 ML/MIN 04/05/2015 Unknown GFR CALC 8206425 GFR NON-AA >60 ML/MIN 04/05/2015 Unknown LIPID GROUP 60060 HDL TEST 60 MG/DL 04/05/2015 Unknown LIPID GROUP 56423 TRIG 70 MG/DL 04/05/2015 Unknown LIPID GROUP 69485 TEST LDL 137 MG/DL 04/05/2015 Unknown LIPID GROUP 15348 CHOL 211 MG/DL 04/05/2015 Unknown LIPID GROUP 09230 RCHOL/HDL 3.52 RATIO 04/05/2015 Unknow n LIPID GROUP 03069 NON-HDL CH 151 MG/DL 04/05/2015 Unknow n COMPLETE BLOOD COUNT 2164805 WBC 5.3 10e9/L 04/05/20 15 Unknown COMPLETE BLOOD COUNT [id number] RBC 4.42 10e12/L 2014 Unknown COMPLETE BLOOD COUNT 1946727 HGB 13.4 g/dL 5 Unknown COMPLETE BLOOD COUNT 9919629 HCT DET 39.6 % 5 Unknown COMPLETE BLOOD COUNT 6553836 MCV 89.6 fL 5 Unknown COMPLETE BLOOD COUNT 7262461 MCH 30.3 pg 5 Unknown COMPLETE BLOOD COUNT 2956713 MCHC 33.8 g/dL 5 Unknown COMPLETE BLOOD COUNT 0343021 PLT 201 10e9/L 04/05/20 15 Unknown COMPLETE BLOOD COUNT 0251749 MPV 10.3 fL 5 Unknown COMPLETE BLOOD COUNT 6630013 LUPE % 56.4 % 5 Unknown COMPLETE BLOOD COUNT 7175269 LY % 24.8 % 5 Unknown COMPLETE BLOOD COUNT 4563382 MON % 12.8 % 5 Unknown COMPLETE BLOOD COUNT [id number] EOS % 5.4 % 5 Unknown COMPLETE BLOOD COUNT 1768473 BASO % 0.6 % 5 Unknown COMPLETE BLOOD COUNT 7123984 RDW 13.2 % 5 Unknown COMPLETE BLOOD COUNT 3676025 ABS LUPE 2.99 10e9/L 015 Unknown COMPLETE BLOOD COUNT 6839221 ABS LYMPH 1.31 10e9/L 015 Unknown COMPLETE BLOOD COUNT [id number] ABS MONO 0.68 10e9/L 015 Unknown COMPLETE BLOOD COUNT 3513813 ABS EOS 0.29 10e9/L 015 Unknown COMPLETE BLOOD COUNT [id number] ABS BASO 0.03 10e9/L 015 Unknown COMPLETE BLOOD COUNT [id number] RDW-SD 42.3 fL 5 Unknown LIPID GROUP 63768 HDL TEST 51 MG/DL 07/19/2012 Unknown LIPID GROUP 90036 TRIG 129 MG/DL 07/19/2012 Unknown LIPID GROUP 26539 TEST LDL 98 MG/DL 07/19/2012 Unknown LIPID GROUP 62567 CHOL 175 MG/DL 07/19/2012 Unknown LIPID GROUP 00329 RCHOL/HDL 3.43 RATIO 07/19/2012 Unknow n COMPREHENSIVE METABOLIC 54715 AST 18 U/L 2011 Unknown COMPREHENSIVE METABOLIC 63490 ALT 12 IU/L 2011 Unknown COMPREHENSIVE METABOLIC 27416 BUN 10 MG/DL 2011 Unknown COMPREHENSIVE METABOLIC 83711 ALBUMIN 4.1 GM/DL 2011 Unknown COMPREHENSIVE METABOLIC 33936 CHLORIDE 103 MMOL/L 07/19 Unknown COMPREHENSIVE METABOLIC 49647 BILI TOT 0.9 MG/DL 2011 Unknown COMPREHENSIVE METABOLIC 74191 ALK PHOS 62 U/L 2011 Unknown COMPREHENSIVE METABOLIC 84919 SODIUM 138 MMOL/L 07/19 Unknown COMPREHENSIVE METABOLIC 65802 CREATININE 1.08 MG/DL 10/2011 Unknown COMPREHENSIVE METABOLIC 67559 CALCIUM 9.1 MG/DL 2011 Unknown COMPREHENSIVE METABOLIC 24589 POTASSIUM 4.2 MMOL/L 07/19 Unknown COMPREHENSIVE METABOLIC 32327 PROT TOT 6.7 GM/DL 2011 Unknown COMPREHENSIVE METABOLIC 17509 Glucose 101 MG/DL 2011 Unknown COMPREHENSIVE METABOLIC 93825 BICARB 27 MMOL/L 2011 Unknown COMPREHENSIVE METABOLIC 40054 ANION GAP 8 MEQ/L 2011 Unknown GFR CALC [id number] GFR AA >60 ML/MIN 07/19/2012 Unknown GFR CALC [id number] GFR NON-AA >60 ML/MIN 07/19/2012 Unknown Procedures Procedure Codes Date ROUTINE VENIPUNCTURE CPT-4: 60118 09/30/2019 COMPREHEN METABOLIC PANEL CPT-4: 02135 09/30/2019 COMPLETE CBC W/AUTO DIFF WBC CPT-4: 06784 09/30/2019 ASSAY OF PSA TOTAL CPT-4: 80314 09/30/2019 ASSAY THYROID STIM HORMONE CPT-4: 26566 09/30/2019 LIPID PANEL CPT-4: 73622 09/30/2019 ROUTINE VENIPUNCTURE CPT-4: 00040 09/24/2019 COMPLETE CBC W/AUTO DIFF WBC CPT-4: 43503 09/24/2019 COMPREHEN METABOLIC PANEL CPT-4: 99521 09/24/2019 LIPID PANEL CPT-4: 83440 09/24/2019 ASSAY THYROID STIM HORMONE CPT-4: 90257 09/24/2019 THER/PROPH/DIAG INJ SC/IM CPT-4: 73283 01/13/2019 TRIAMCINOLONE ACET INJ NOS CPT-4: J3301 01/13/2019 DEXAMETHASONE SODIUM PHOS CPT-4: J1100 01/13/2019 ROUTINE VENIPUNCTURE CPT-4: 94308 09/04/2018 COMPREHEN METABOLIC PANEL CPT-4: 26526 09/04/2018 COMPLETE CBC W/AUTO DIFF WBC CPT-4: 75787 09/04/2018 LIPID PANEL CPT-4: 15435 09/04/2018 ASSAY OF PSA TOTAL CPT-4: 72196 09/04/2018 ASSAY THYROID STIM HORMONE CPT-4: 24922 09/04/2018 URINALYSIS NONAUTO W/O SCOPE CPT-4: 22154 05/15/2018 ROUTINE VENIPUNCTURE CPT-4: 23549 11/16/2017 A FRT/VG P CPT-4: 3338148 11/16/2017 A FOOD C P CPT-4: 6827244 11/16/2017 A NUTS PNL CPT-4: 3342032 11/16/2017 THER/PROPH/DIAG INJ SC/IM CPT-4: 99078 11/06/2017 TRIAMCINOLONE ACET INJ NOS CPT-4: J3301 11/06/2017 DEXAMETHASONE SODIUM PHOS CPT-4: J1100 11/06/2017 ROUTINE VENIPUNCTURE CPT-4: 14388 09/03/2017 ASSAY OF FREE THYROXINE CPT-4: 28629 09/03/2017 ASSAY THYROID STIM HORMONE CPT-4: 49079 09/03/2017 ASSAY TRIIODOTHYRONINE (T3) CPT-4: 71226 09/03/2017 ROUTINE VENIPUNCTURE CPT-4: 67534 07/31/2017 COMPREHEN METABOLIC PANEL CPT-4: 53443 07/31/2017 COMPLETE CBC W/AUTO DIFF WBC CPT-4: 66362 07/31/2017 LIPID PANEL CPT-4: 59739 07/31/2017 FLU VACC PRSV FREE INC ANTIG 65 AND OLDER CPT-4: 21406 07/04/2017 ADMIN INFLUENZA VIRUS VAC CPT-4: G0008 07/04/2017 ROUTINE VENIPUNCTURE CPT-4: 06198 02/26/2017 ASSAY THYROID STIM HORMONE CPT-4: 57442 02/26/2017 COMPREHEN METABOLIC PANEL CPT-4: 43802 02/26/2017 COMPLETE CBC W/AUTO DIFF WBC CPT-4: 75942 02/26/2017 LIPID PANEL CPT-4: 05584 02/26/2017 ASSAY OF PSA TOTAL CPT-4: 56119 02/26/2017 FLUZONE, 5ML (Medicare) CPT-4: Q2038 06/28/2016 ADMIN INFLUENZA VIRUS VAC CPT-4: G0008 06/28/2016 ROUTINE VENIPUNCTURE CPT-4: 71814 05/19/2016 ASSAY OF FREE THYROXINE CPT-4: 17348 05/19/2016 ASSAY THYROID STIM HORMONE CPT-4: 82169 05/19/2016 COMPREHEN METABOLIC PANEL CPT-4: 45069 05/19/2016 COMPLETE CBC W/AUTO DIFF WBC CPT-4: 78965 05/19/2016 LIPID PANEL CPT-4: 79289 05/19/2016 VITAMIN B-12 CPT-4: 83183 05/19/2016 PPPS, initial visit CPT-4: G0438 05/10/2016 ROUTINE VENIPUNCTURE CPT-4: 93089 04/05/2015 ASSAY THYROID STIM HORMONE CPT-4: 59789 04/05/2015 COMPREHEN METABOLIC PANEL CPT-4: 15835 04/05/2015 COMPLETE CBC W/AUTO DIFF WBC CPT-4: 13614 04/05/2015 LIPID PANEL CPT-4: 07799 04/05/2015 ASSAY OF PSA TOTAL CPT-4: 68500 04/05/2015 ROUTINE VENIPUNCTURE CPT-4: 34452 07/19/2012 COMPREHEN METABOLIC PANEL CPT-4: 30291 07/19/2012 LIPID PANEL CPT-4: 86645 07/19/2012 ELECTROCARDIOGRAM COMPLETE CPT-4: 20208 03/22/2012 Vital Signs Date Vital 09/24/2019 Blood Pressure 1: 125/72 Code: 8480-6 BMI: 19.8 Code: 14765-3 Heart Rate 1: 88 bpm Height: 5'11" [...] 1: 102/60 Code: 8480-6 BMI: 19.1 Code: 54065-8 Heart Rate 1: 82 bpm Height: 5'11" Respiratory Rate: 22 bpm SpO2: 97% Tempera ture: 36.4 (C) / 97.6 (F) Weight: 137 lbs 04/25/2018 Blood Pressure 1: 118/64 Code: 8480-6 BMI: 19.2 Code: 89906-8 Heart Rate 1: 98 bpm Height: 5'11" Respiratory Rate: 20 bpm SpO2: 99% Tempera ture: 36.4 (C) / 97.6 (F) Weight: 138 lbs 11/06/2017 Blood Pressure 1: 108/68 Code: 8480-6 BMI: 18.5 Code: 70618-8 Heart Rate 1: 68 bpm Height: 5'11" Respiratory Rate: 20 bpm SpO2: 96% Tempera ture: 36.8 (C) / 98.2 (F) Weight: 133 lbs 09/03/2017 Blood Pressure 1: 122/64 Code: 8480-6 BMI: 17.6 Code: 91183-3 Heart Rate 1: 90 bpm Height: 5'11" Respiratory Rate: 20 bpm SpO2: 98% Tempera ture: 36.4 (C) / 97.6 (F) Weight: 126 lbs 08/21/2017 Blood Pressure 1: 114/80 Code: 8480-6 BMI: 17.9 Code: 22885-6 Heart Rate 1: 80 bpm Height: 5'11" Respiratory Rate: 20 bpm SpO2: 95% Tempera ture: 36.6 (C) / 97.9 (F) Weight: 128 lbs 02/13/2017 Blood Pressure 1: 122/60 Code: 8480-6 BMI: 18.5 Code: 13397-6 Heart Rate 1: 76 bpm Height: 5'11" Respiratory Rate: 20 bpm SpO2: 96% Tempera ture: 36.9 (C) / 98.4 (F) Weight: 133 lbs 11/23/2016 Blood Pressure 1: 126/70 Code: 8480-6 BMI: 18.5 Code: 43945-9 Heart Rate 1: 100 bpm Height: 5'11" Respiratory Rate: 20 bpm SpO2: 96% Tempera ture: 37.1 (C) / 98.8 (F) Weight: 133 lbs 05/23/2016 Blood Pressure 1: 128/82 Code: 8480-6 BMI: 18.5 Code: 93290-3 Heart Rate 1: 88 bpm Height: 5'11" Respiratory Rate: 20 bpm Temperature: 36 .7 (C) / 98.0 (F) Weight: 133 lbs 05/10/2016 Blood Pressure 1: 146/70 Code: 8480-6 BMI: 18.5 Code: 11258-8 Heart Rate 1: 84 bpm Height: 5'11" Respiratory Rate: 20 bpm Temperature: 36 .7 (C) / 98.1 (F) Weight: 133 lbs 04/01/2015 Blood Pressure 1: 102/60 Code: 8480-6 BMI: 18.5 Code: 10339-2 Heart Rate 1: 64 bpm Height: 5'11" Respiratory Rate: 20 bpm Temperature: 36 .8 (C) / 98.2 (F) Weight: 133 lbs 01/13/2014 Blood Pressure 1: 124/78 Code: 8480-6 BMI: 19.8 Code: 06388-5 Heart Rate 1: 76 bpm Height: 5'11" Respiratory Rate: 20 bpm Temperature: 36 .8 (C) / 98.2 (F) Weight: 142 lbs 04/03/2012 Blood Pressure 1: 106/76 Code: 8480-6 BMI: 20.9 Code: 31327-7 Heart Rate 1: 84 bpm Height: 5'11" Respiratory Rate: 20 bpm Temperature: 36 .7 (C) / 98.0 (F) Weight: 150 lbs 12/20/2011 Blood Pressure 1: 116/60 Code: 8480-6 BMI: 20.1 Code: 83536-3 Heart Rate 1: 80 bpm Height: 5'11" Respiratory Rate: 20 bpm Temperature: 36 .4 (C) / 97.6 (F) Weight: 144 lbs 10/24/2011 Blood Pressure 1: 132/74 Code: 8480-6 BMI: 19.7 Code: 26113-8 Heart Rate 1: 96 bpm Height: 5'11" [...] 04/05/2015 follow up 04/01/2015 follow up 01/13/2014 [facility] from Justin Palacio'justin in November 2012 lab draw 07/19/2012 follow up 04/03/2012 S/P stent placement in LAD, changed effient to plavix hip pain 12/20/2011 dyskinesia or tremor 10/24/2011 follow up 03/13/2011 started on effient, zocor, and atenolol follow up 02/20/2011 [facility]/Dr Christian rojas follow up 02/23/2010 [facility], appt with Dr Bajwa 03/22/10 insomnia 01/12/2010 problems falling and staying asleep, takes nortriptyline Encounters Encounter Performer Location Codes Date ([id number]) OFFICE/OUTPATIENT VISIT EST Diagnosis: Essential tremor[ICD10: G25.0] Vonnie Mathews [facility] CPT-4: 42751 12/24/2019 ([id number]) NURSE/OUTPATIENT VISIT EST Diagnosis: Essential (primary) hypertension[ICD10: I10] Diagnosis: Mixed hyperlipidemia[ICD10: E78.2] Diagnosis: Encounter for screening for malignant neoplasm of prostate[ICD10: Z12.5] Vonnie MATHEWS [facility] CPT-4: 87924 09/30/2019 ([id number]) OFFICE/OUTPATIENT VISIT EST Diagnosis: Encounter for therapeutic drug level monitoring[ICD10: Z51.81] Diagnosis: Essential tremor[ICD10: G25.0] Verna MATHEWS DO [facility] CPT-4: 45203 09/24/2019 ([id number]) OFFICE/OUTPATIENT VISIT EST Diagnosis: Noninfective gastroenteritis and colitis, unspecified[ICD10: K52.9] Diagnosis: Hemorrhage of anus and rectum[ICD10: K62.5] Vonnie MATHEWS [facility] CPT-4: 64968 05/26/2019 ([id number]) OFFICE/OUTPATIENT VISIT EST Diagnosis: Other intervertebral disc degeneration, 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] Diagnosis: Other forms of dyspnea[ICD10: R06.09] Vonnie MATHEWS [facility] CPT-4: 42882 03/17/2019 OFFICE/OUTPATIENT VISIT EST Diagnosis: Other intervertebral disc degeneration, 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] Diagnosis: Other symptoms and signs involving the musculoskeletal system[ICD10: R29.898] Vonnie MATHEWS [facility] CPT-4: 08239 02/18/2019 ([id number]) OFFICE/OUTPATIENT VISIT EST Diagnosis: Other allergic rhinitis[ICD10: J30.89] Akilah ALBERTO HUBERT MATHEWS [employer] [facility] CPT-4: 48279 01/13/2019 ([id number]) NURSE/OUTPATIENT VISIT EST Diagnosis: Mixed hyperlipidemia[ICD10: E78.2] Diagnosis: Essential (primary) hypertension[ICD10: I10] Diagnosis: Encounter for screening for malignant neoplasm of prostate[ICD10: Z12.5] Diagnosis: Encounter for general adult medical examination with abnormal findings[ICD10: Z00.01] Diagnosis: Benign prostatic hyperplasia without lower urinary tract symptoms[ICD10: N40.0] Vonnie MATHEWS DO [facility] CPT-4: 98270 09/04/2018 ([id number]) OFFICE/OUTPATIENT VISIT EST Diagnosis: Otorrhea, left ear[ICD10: H92.12] Diagnosis: Impacted cerumen, right ear[ICD10: H61.21] Verna MATHEWS DO [facility] CPT-4: 85423 09/03/2018 ([id number]) OFFICE/OUTPATIENT VISIT EST Diagnosis: Other intervertebral disc degeneration, 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] Diagnosis: Primary insomnia[ICD10: F51.01] Diagnosis: Essential tremor[ICD10: G25.0] Vonnie MATHEWS [facility] CPT-4: 95090 08/26/2018 ([id number]) OFFICE/OUTPATIENT VISIT EST Diagnosis: Pelvic and perineal pain[ICD10: R10.2] Verna MATHEWS [facility] CPT-4: 28472 05/15/2018 ([id number]) OFFICE/OUTPATIENT VISIT EST Diagnosis: Encounter for therapeutic drug level monitoring[ICD10: Z51.81] Diagnosis: Acute sinusitis, unspecified[ICD10: J01.90] Diagnosis: Other intervertebral disc degeneration, 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] Diagnosis: Essential tremor[ICD10: G25.0] Diagnosis: Raynaud's syndrome without gangrene[ICD10: I73.00] Vrena MATHEWS DO [facility] CPT-4: 69207 04/25/2018 ([id number]) OFFICE/OUTPATIENT VISIT EST Diagnosis: Idiopathic urticaria[ICD10: L50.1] Diagnosis: Other urticaria[ICD10: L50.8] Vonnie MATHEWS [facility] CPT-4: 56137 11/16/2017 ([id number]) OFFICE/OUTPATIENT VISIT EST Diagnosis: Idiopathic urticaria[ICD10: L50.1] Diagnosis: Other urticaria[ICD10: L50.8] Diagnosis: Other forms of dyspnea[ICD10: R06.09] Vonnie BREWERNE Denia MATHEWS [facility] CPT-4: 85797 11/06/2017 ([id number]) OFFICE/OUTPATIENT VISIT EST Diagnosis: Dyspnea, unspecified[ICD10: R06.00] Diagnosis: Abnormal weight loss[ICD10: R63.4] Vonnie DOUGLASS REA MATHEWS [employer] CPT-4: 00768 09/03/2017 ([id number]) OFFICE/OUTPATIENT VISIT EST 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] Diagnosis: Mixed hyperlipidemia[ICD10: E78.2] Diagnosis: Essential tremor[ICD10: G25.0] Diagnosis: Essential (primary) hypertension[ICD10: I10] Diagnosis: Abnormal weight loss[ICD10: R63.4] oVnnie DOUGLASS REA BOWMAN [employer] CPT-4: 91828 08/21/2017 ([id number]) OFFICE/OUTPATIENT VISIT EST Diagnosis: Mixed hyperlipidemia[ICD10: E78.2] Diagnosis: Essential (primary) hypertension[ICD10: I10] 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] Diagnosis: Anemia, unspecified[ICD10: D64.9] Vonnie Galarza Denia BOWMAN [employer] CPT-4: 59812 07/31/2017 ([id number]) OFFICE/OUTPATIENT VISIT EST Diagnosis: FLU VACCINE[ICD10: Z23] Vonnie COLMENARES Denia B[facility] [employer] CPT-4: 38715 07/04/2017 ([id number]) OFFICE/OUTPATIENT VISIT EST Diagnosis: Mixed hyperlipidemia[ICD10: E78.2] Diagnosis: Essential tremor[ICD10: G25.0] 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] Diagnosis: Essential (primary) hypertension[ICD10: I10] Diagnosis: Supraventricular tachycardia[ICD10: I47.1] Diagnosis: Other fatigue[ICD10: R53.83] Diagnosis: Encounter for screening for malignant neoplasm of prostate[ICD10: Z12.5] Vonnie COLMENARES Denia B[facility]MAN [employer] [facility] CPT-4: 48964 02/26/2017 ([id number]) OFFICE/OUTPATIENT VISIT EST Diagnosis: Essential tremor[ICD10: G25.0] Vonnie MATHEWS DO [facility] CPT-4: 47690 02/13/2017 ([id number]) OFFICE/OUTPATIENT VISIT EST Diagnosis: Essential tremor[ICD10: G25.0] Diagnosis: Other intervertebral disc degeneration, 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] Vonnie MATHEWS DO [facility] CPT-4: 00756 11/23/2016 ([id number]) OFFICE/OUTPATIENT VISIT EST Diagnosis: FLU VACCINE[ICD10: Z23] Vonnie GERMAN DO [facility] CPT-4: 40896 06/28/2016 OFFICE/OUTPATIENT VISIT EST Diagnosis: Open bite of right hand, initial encounter[ICD10: S61.451A] Vonnie MATEHWS DO [facility] CPT-4: 42027 05/23/2016 ([id number]) OFFICE/OUTPATIENT VISIT EST Diagnosis: Encounter for general adult medical examination with abnormal findings[ICD10: Z00.01] Diagnosis: Mixed hyperlipidemia[ICD10: E78.2] Diagnosis: Essential tremor[ICD10: G25.0] 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] Vonnie MATHEWS DO [facility] CPT-4: 98986 05/19/2016 ([id number]) OFFICE/OUTPATIENT VISIT EST Diagnosis: HYPERLIPIDEMIA NEC/NOS[ICD9: 272.4] Diagnosis: CAD[ICD9: 414.00] Diagnosis: TACHYCARDIA[ICD9: 785.0] Diagnosis: HYPERTENSION[ICD9: 401.9] Diagnosis: Routine medical exam[ICD9: V70.0] Vonnie MATHEWS DO [facility] CPT-4: 39507 04/05/2015 ([id number]) OFFICE/OUTPATIENT VISIT EST Diagnosis: HYPERTENSION[ICD9: 401.9] Diagnosis: HYPERLIPIDEMIA NEC/NOS[ICD9: 272.4] Diagnosis: CAD[ICD9: 414.00] Diagnosis: LUMB/LUMBOSAC DISC DEGEN[ICD9: 722.52] Vonnie Bowmanranjan DOLLY GASPAR Denia MATHEWS [facility] CPT-4: 62628 04/01/2015 ([id number]) OFFICE/OUTPATIENT VISIT EST Diagnosis: CHEST PAIN NOS[ICD9: 786.50] Diagnosis: PAIN IN THORACIC SPINE[ICD9: 724.1] Diagnosis: HYPERTENSION[ICD9: 401.9] Diagnosis: GERD[ICD9: 530.81] Vonnie ASCENCIOLINE JustinKim ROMULONDER [facility] CPT-4: 60478 01/13/2014 ([id number]) OFFICE/OUTPATIENT VISIT EST Diagnosis: CAD[ICD9: 414.00] Diagnosis: HYPERLIPIDEMIA NEC/NOS[ICD9: 272.4] Vonnie LAIBESSY ANNA SKim ROMULONDER [facility] CPT-4: 19271 07/19/2012 ([id number]) OFFICE/OUTPATIENT VISIT EST Diagnosis: CAD[ICD9: 414.00] Diagnosis: INSOMNIA NOS[ICD9: 780.52] Vonnie Romuloalyssaranjan VONNIE Loza DANAY YULISA [facility] CPT-4: 38568 04/03/2012 ([id number]) OFFICE/OUTPATIENT VISIT EST Diagnosis: CHEST PAIN NOS[ICD9: 786.50] Diagnosis: CAD[ICD9: 414.00] Vonnie LAIQUELINE JustinKim ROMULONDER [facility] CPT-4: 81149 03/22/2012 ([id number]) OFFICE/OUTPATIENT VISIT EST Diagnosis: PROSTATITIS[ICD9: 601.9] Diagnosis: TREMOR NEC[ICD9: 333.1] Vonnie Mathews VONNIE JustinKim ROMULOND ER [facility] CPT-4: 68261 12/20/2011 OFFICE/OUTPATIENT VISIT EST Diagnosis: TREMOR NEC[ICD9: 333.1] Diagnosis: TACHYCARDIA[ICD9: 785.0] Diagnosis: HYPERTENSION[ICD9: 401.9] Vonnie Romulojuan miguel COLMENARES JustinKim ROMULO NDER DO [facility] CPT-4: 65595 10/24/2011 OFFICE/OUTPATIENT VISIT EST Vonnie Romuloalyssaranjan VONNIE JustinKim ROMULO NDER [facility] CPT- 4: 94894 03/13/2011 ([id number]) OFFICE/OUTPATIENT VISIT EST Vonnie Romuloalyssaranjan DOLLY GASPAR SKim ROMULONDER [facility] CPT-4: 15586 02/20/2011 ([id number]) OFFICE/OUTPATIENT VISIT, GINETTE MATHEWS DO [employer] CPT-4: 75580 02/23/2010 ([id number]) OFFICE/OUTPATIENT VISIT, EST Vonnie MATHEWS DO [employer] CPT-4: 61157 01/12/2010 Plan of Care Planned Activity Notes Codes Status Date Visit Diagnosis Plan: Essential tremor Discussion: Sta ble on clonazepam Fwup in 3mos with fasting lab ICD-9 : 333.1 ICD-10 : G25.0 12/24/2019 Patient Education: [employer] HFA- [employer] Coupon [id number] [email or web address] Completed 12/24/2019 Appointment: Vonnie Mathews WPtel: [phone] [address] US LAB 09/30/2019 Appointment: Verna Ramirez [facility] [employer] [address] RESCHEDULED 09/25/2019 Visit Diagnosis Plan: Essential tremor Discussion: sta ble on clonazepam. educated patient about purchasing a large, heavy pen that will allow him to improve his writing. instructed him that pens can be purchased on [employer]. ICD-9 : 333.1 ICD-10 : G25.0 09/24/2019 Visit Diagnosis Plan: Encounter for therapeutic drug l evel monitoring Discussion: UDS and contract completed today. ICD-9 : V58.83 ICD-10 : Z51.81 09/24/2019 Appointment: Verna Ramirez [id number] MEDICATION REVIEW 09/24/2019 Visit Diagnosis Plan: Hemorrhage of anus and rectum Di scussion: Update colonoscopy ICD-9 : 569.3 ICD-10 : K62.5 05/26/2019 Visit Diagnosis Plan: Noninfective gastroenteritis and colitis, unspecified Discussion: Flagyl [place] diet Update colonoscopy ICD-9 : 558.9 ICD-10 : K52.9 05/26/2019 Appointment: Vonnie Mathews WPtel: [phone] [phone] US record request faxed 05/23; ANGELINA with medical records 05/26/19 Hospital Follow Up 05/26/2019 Care Plan: Referral Order SNOMED-CT : 30 [id number] Pending 05/26/2019 Visit Diagnosis Plan: Other intervertebral disc degene ration, lumbar region Discussion: Increase lyrica to 150mg po q HS Continue stretches from PT [facility] Fwup after that appointment ICD-9 : 722.52 ICD-10 : M51.36 03/17/2019 Appointment: Vonnie Mathews WPtel: [address] [place], [place] [phone] US FOLLOW UP 03/17/2019 Visit Diagnosis Plan: Other intervertebral disc degene ration, lumbar region Discussion: Start PT Referral for epidural Will start lyrica 75mg po q HS once CT scan results obtained [facility] Follow Up: 3 weeks ICD-9 : 722.52 [...] R29.898 02/18/2019 Appointment: Vonnie Mathews WPtel: [address] [place], [place] [phone] US FOLLOW UP 02/18/2019 Appointment: Vonnie Mathews WPtel: [address] [place], [place] [phone] US CANCELED 02/18/2019 Visit Diagnosis Plan: Other [...] ICD-10 : J30.89 01/13/2019 Appointment: Akilah Lopez [facility] Mayra Guthrie [facility] US Due for annual wellness ACUTE ILLNESS 01/14/20 Appointment: Vonnie Mathews WPtel: [address] [place] [address] US LAB 09/04/2018 Visit Diagnosis Plan: Impacted [...] ICD-10 : H92.12 09/03/2018 Appointment: Verna Ramirez [address] [place] [address] ACUTE ILLNESS 09/03/2018 Visit Diagnosis Plan: Essential [...] : M51.36 08/26/2018 Appointment: Vonnie Mathews WPtel: [facility] FOLLOW UP 08/26/2018 Visit Diagnosis Plan: [...] : R10.2 05/15/2018 Appointment: Verna Ramirez [address] [facility] ACUTE ILLNESS 05/15/2018 Patient Education: Patient Medication Summary Completed 05/15/2018 Care Plan: US EXAM PELVIC COMPLETE scrotal LOINC : 84763-1 Pending 05/15/2018 Visit Diagnosis Plan: Other intervertebral [...] : J01.90 04/25/2018 [facility]ointment: [facility] MEDICATION REVIEW 04/25/2018 Patient Education: Patient Medication Summary Completed 04/25/2018 Appointment: Vonnie Mathews WPtel: [phone] [facility] 11/16/2017 Patient Education: Patient Medication Summary Completed [...] : L50.1 11/06/2017 Appointment: Vonnie Mathews WPtel: [address] [place] [address] FOLLOW UP 11/06/2017 Patient Education: Patient Medication [...] : R06.00 09/03/2017 Appointment: Vonnie Mathews WPtel: [address] [place] [address] FOLLOW UP 09/03/2017 Patient Education: Patient Medication [...] E78.2 08/21/2017 Appointment: Vonnie Mathews WPtel: [address] [place], [place] [address] US FOLLOW UP 08/21/2017 Patient Education: Patient Medication Summary Completed 08/21/2017 Appointment: Vonnie Mathews WPtel: [address] [place], [place] [phone] US LAB 07/31/2017 Patient Education: Patient Medication Summary Completed 07/31/2017 Appointment: Vonnie Mathews WPtel: [address] [place] [address] US INJECTION 07/04/2017 Patient Education: Patient Medication Summary Completed 07/04/2017 Appointment: Vonnie Mathews WPtel: [address] [place] [address] US LAB 02/26/2017 Patient Education: Patient Medication Summary Completed 02/26/2017 Visit Diagnosis Plan: Essential tremor Discussion: Con tinue clonazepam at 1mg q AM and primidone 50mg q HS Follow Up: 3 months ICD-9 : 333.1 ICD-10 : G25.0 02/13/2017 Appointment: Vonnie Mathews WPtel: [address] [place], [place] [phone] 02/08 confirmed~sl FOLLOW UP 02/13/2017 Patient Education: Patient Medication Summary Completed 02/13/2017 Appointment: Vonnie Mathews WPtel: [address] [place], [place] [phone] US RESCHEDULED 01/23/2017 Visit Diagnosis Plan: Other intervertebral disc degene ration, lumbar region Discussion: DC oxycodone Tramadol 50mg 1-2 po TID prn pain Follow Up: 2 months ICD-9 : 722.52 ICD-10 : M51.36 11/23/2016 Visit Diagnosis Plan: Essential tremor Discussion: Inc rease clonazepam to 1mg po BID Discussed sinemet ICD-9 : 333.1 ICD-10 : G25.0 11/23/2016 Appointment: Vonnie Mathews WPtel: [address] [place], [place] [phone] 11/22 confirmed~sl MEDICATION REVIEW 11/23/2016 Patient Education: Patient Medication Summary Completed 11/23/2016 Patient Education: [facility] [employer] - Clonazepam - 18-64 - Dynamic Portal ID Completed 11/23/2016 Appointment: Vonnie Mathews WPtel: [address] [place], [place] [phone] US INJECTION 06/28/2016 Patient Education: Patient Medication Summary Completed 06/28/2016 Referral: Fernando Day WPtel: #1 [facility] Shilpa Lopez [id number] [place] [id number] per Maribeth, the patient is [...] if worsening 05/23/2016 Appointment: Vonnie Mathews WPtel: [address] [place], [place] [phone] ER Follow UP 05/23/2016 Patient Education: Patient Medication Summary Completed 05/23/2016 Appointment: Vonnie Mathews WPtel: [address] [place], [place] [phone] LAB 05/19/2016 Patient Education: Patient Medication Summary Completed 05/19/2016 Visit Plan: Change coreg to 3.125mg BID Trial of low dose clonazepam 0.5mg BID for tremors Fwup with Dr. Ramsey as scheduled Return for fasting lab--CBC, CMP, TSH, free T4, Lipids, PSA, B12 Proceed with Colonoscopy 05/10/2016 Appointment: Vonnie Mathews WPtel: [address] [place], [place] [phone] 05/09 confirmed~sl Annual Well Visit 05/10/2016 Patient Education: Patient Medication Summary Completed 05/10/2016 Care Plan: Referral Order SNOMED-CT : 30 [id number] Pending 05/10/2016 Appointment: Vonnie Mathews WPtel: [address] [place] [address] [place] Rescheduled for 05/10/16 at 2PM~lb RESCHEDULED 04/26/2016 Referral: Danilo Ramsey WPtel: [phone] [id number] US Referral Initiated 04/29/2015 Appointment: Vonnie Mathews WPtel: [address] [place] [address] US LAB 04/05/2015 Patient Education: Patient Medication Summary Completed 04/05/2015 Visit Plan: Return in AM for fasting lab --CMP, lipids, CBC, TSH, PSA Change hydrocodone to oxycodone 7.5/325mg 1-2 po TID Schedule with cardiology Needs colonoscopy once cardiology evaluation complete Will need to restart chol meds after lab Recheck 1mo on pain meds 04/01/2015 Appointment: Vonnie Mathews WPtel: [address] [place], [place] [phone] 03/31 confirmed -mf PHYSICAL 04/01/2015 Patient Education: Patient Medication Summary Completed 04/01/2015 Appointment: Vonnie Mathews WPtel: [address] [place], [place] [phone] Annual Well Visit 09/23/2014 Visit Plan: Continue protonix Pt has fwu p with Card next month Rec chiropracter or PT for ribs/thoracics being out and could be contributing to chest pain 01/13/2014 Appointment: Vonnie Mathews WPtel: [address] [place], [place] [phone] FOLLOW UP 01/13/2014 Patient Education: Patient Medication Summary Completed 01/13/2014 Appointment: Ariella Mcnallyl: [phone] [facility] US FOLLOW UP 12/12/2013 Appointment: Malika Cárdenas WPtel: [phone] [facility] US PHYSICAL 12/12/2013 Appointment: Vonnie Mathews WPtel: [address] [place] [address] ACUTE ILLNESS 02/20/2013 Appointment: Vonnie Mathews WPtel: [address] [place], [place] [phone] US LAB 07/19/2012 Patient Education: Patient Medication Summary Completed 07/19/2012 Appointment: Vonnie Mathews WPtel: [address] [place] [address] FOLLOW UP 04/03/2012 Patient Education: Patient Medication Summary Completed 04/03/2012 Appointment: Vonnie Mathews WPtel: [address] [place] [address] ACUTE ILLNESS 03/22/2012 Patient Education: Patient Medication Summary Completed 03/22/2012 Appointment: Vonnie Mathews WPtel: [address] [place], [place] [phone] FOLLOW UP 12/26/2011 Visit Plan: Add Cipro Continue current m eds 12/20/2011 Appointment: Vonnie Mathews WPtel: [address] [place], [place] [phone] ACUTE ILLNESS 12/20/2011 Patient Education: Patient Medication Summary Completed 12/20/2011 Visit Plan: Change neurontin to Cymbalta 30mg for 1wk then 60mg QD Add Propranolol for tremor 10/24/2011 Appointment: Vonnie Mathews WPtel: [address] [place], [place] [phone] ACUTE ILLNESS 10/24/2011 Appointment: Vonnie Mathews WPtel: [address] [place], [place] [phone] ACUTE ILLNESS 10/24/2011 Patient Education: Patient Medication Summary Completed 10/24/2011 Visit Plan: Continue current meds and fw up with Card as scheduled 03/13/2011 Appointment: Vonnie Mathews WPtel: [address] [place], [place] [phone] FOLLOW UP 03/13/2011 Patient Education: Patient Medication Summary Completed 03/13/2011 Visit Plan: Will obtain all records and lab from [facility] Discussed will likely need heart cath which pt states that Card did talk to him about in the hospital 02/20/2011 Appointment: Vonnie Mathews WPtel: [address] [place], [place] [address] ACUTE ILLNESS 02/20/2011 Patient Education: Patient Medication Summary Completed 02/20/2011 Visit Plan: Cont Pepcid and Prilosec See Card for cardiac cath. 02/23/2010 Appointment: Vonnie Mathews WPtel: [address] [place], [place] [phone] [place] FOLLOW UP 02/23/2010 Patient Education: Patient Medication Summary Completed 02/23/2010 Visit Plan: Increase Pamelor to 75mg qhs Increase Hydrocodone to 10/325mg 1-2 po q6 prn 01/12/2010 Appointment: Vonnie Mathews WPtel: [address] [place], [place] [phone] ACUTE ILLNESS 01/12/2010 Patient Education: Patient Medication Summary Completed 01/12/2010 Referral: Iván Pardo WPtel: [facility] [id number] , [id number] Referral Initiated Referral: Fernando Day WPtel: #[id number] [place] Referral Completed Referral: Fernando Day WPtel: #1 [id number] [place] Referral Appointment Requested Instructions Comment . [...]
--- OUTSIDE RECORDS SUMMARY | 2020-02-10 08:12 | XMS REPORT | CCD ---
Author Author Nash Mathews D.O. Organization [facility] Address [address] [place] [address] Phone Care Team Providers Care Sr. 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: [...] ProAir HFA 90 mcg/actuation aerosol inhaler RxNorm: 079791 2 Puff(s) Inhalation four times a day as needed 12/24/2019 No Stop Date Active Zyrtec 10 mg capsule RxNorm: 7866913 1 Capsule(s) Oral QD 0 No Stop Date Active clonazepam 1 mg tablet RxNorm: 659442 TAKE 1 TABLET BY MOUTH EV SUSAN MORNING 12/19/2019 01/17/2020 Active clonazepam 1 mg tablet RxNorm: 355351 TAKE 1 TABLET BY MOUTH EV SUSAN MORNING 11/17/2019 12/16/2019 Inactive Tamiflu 75 mg capsule RxNorm: 851050 1 Capsule(s) Oral QD 11/03/2019 11/12/2019 Inactive Tamiflu 75 mg capsule RxNorm: 927576 1 Capsule(s) Oral QD 11/03/2019 11/02/2019 Inactive clonazepam 1 mg tablet RxNorm: 791079 TAKE 1 TABLET BY MOUTH EV SUSAN MORNING 10/16/2019 11/13/2019 Inactive pravastatin 20 mg tablet RxNorm: 025609 1 Tablet(s) Oral QD 020 04/06/2020 Active Singulair 10 mg tablet RxNorm: 406483 TAKE 1 TABLET BY MOUTH EV SUSAN DAY 10/10/2019 12/24/2019 Inactive Lyrica 75 mg capsule RxNorm: 053677 1 Capsule(s) Oral every ht at bedtime 10/09/2019 01/07/2020 Active clonazepam 1 mg tablet RxNorm: 718236 TAKE 1 TABLET BY MOUTH EV SUSAN AM 09/23/2019 10/15/2019 Inactive clonazepam 1 mg tablet RxNorm: 796353 TAKE 1 TABLET BY MOUTH EV SUSAN AM 08/21/2019 09/22/2019 Inactive Singulair 10 mg tablet RxNorm: 426643 TABLET(S) 1 TABLET(S) PO QD 1 10/09/2019 Inactive Flagyl 500 mg tablet RxNorm: 012416 1 Tablet(s) PO TID 05/26/2019 Inactive clonazepam 1 mg tablet RxNorm: 700097 TAKE 1 TABLET BY MOUTH EV SUSAN MORNING 05/23/2019 06/21/2019 Inactive pravastatin 20 mg tablet RxNorm: 350774 1 Tablet(s) PO QD 04/14/2019 10/09/2019 Inactive Needs updated fasting labs Singulair 10 mg tablet RxNorm: 739243 Tablet(s) 1 TABLET(S) PO QD 0 04/14/2019 07/12/2019 Inactive clonazepam 1 mg tablet RxNorm: 658099 1 Tablet(s) PO QAM 02/21/2019 0 05/23/2019 Inactive Bevespi Aerosphere 9 mcg-4.8 mcg HFA aerosol inhaler RxNorm: 9277904 2 Puff(s) INH BID 02/19/2019 12/23/2019 Inactive ProAir HFA 90 mcg/actuation aerosol inhaler RxNorm: 360182 2 Puff(s) INH Q4H as needed 02/19/2019 09/24/2019 Inactive metoprolol tartrate 25 mg tablet RxNorm: 205039 1/2 Tablet(s) PO BI D 02/18/2019 05/18/2019 Inactive pravastatin 20 mg tablet RxNorm: 958263 1 Tablet(s) PO QD Needs updated fasting labs 01/13/2019 04/14/2019 Inactive Needs updated fa sting labs Singulair 10 mg tablet RxNorm: 852909 Tablet(s) 1 TABLET(S) PO QD 0 01/13/2019 04/12/2019 Inactive Plavix 75 mg tablet RxNorm: 679571 Tablet(s) 1 TABLET(S) PO QD 04/201906/20/2019 Inactive [SAVINGS FOR NON-COVERED SHANDA GS -- BIN:648078, PCN: ASPROD1, Group: XXXXX, ID# [id number], Questions: . THIS IS NOT INSURANCE.] Singulair 10 mg tablet RxNorm: 648539 1 TABLET(S) PO QD 10/29/2018 Inactive primidone 50 mg tablet RxNorm: 400886 2 TABLET(S) PO BI D TAKE 2 TABLETS BY MOUTH EVERY NIGHT AT BEDTIME 10/07/2018 01/12/2019 Inactive Patient requests 90 days supply pravastatin 20 mg tablet RxNorm: 218717 1 TABLET(S) PO QD 09/23/2018 01/12/2019 Inactive clonazepam 1 mg tablet RxNorm: 555583 1 Tablet(s) PO QAM 09/19/2018 0 12/17/2018 Inactive primidone 50 mg tablet RxNorm: 415373 TABLET(S) TAKE 2 TABLETS BY MOUTH EVERY NIGHT AT BEDTIME 09/18/2018 01/12/2019 Inactive ciprofloxacin 0.2 % ear drops in a dropperette RxNorm: 93872 6 2 Drop(s) left otic (ear) BID 09/03/2018 09/09/2018 Inactive primidone 50 mg tablet RxNorm: 731526 2 Tablet(s) PO BI D TAKE 2 TABLETS BY MOUTH EVERY NIGHT AT BEDTIME 08/26/2018 10/06/2018 Inactive Ambien 5 mg tablet RxNorm: 553705 TAKE 1 TABLET BY MOUTH EVERY NIGHT AT BEDTIME 08/05/2018 09/03/2018 Inactive Singulair 10 mg tablet RxNorm: 501693 1 TABLET(S) PO QD 07/23/2018 Inactive clonazepam 1 mg tablet RxNorm: 672343 TAKE 1 TABLET BY MOUTH EV SUSAN MORNING 07/23/2018 08/21/2018 Inactive Plavix 75 mg tablet RxNorm: 306553 1 TABLET(S) PO QD 07/04/201812/22 Inactive [SAVINGS FOR NON-COVERED DRUGS -- BIN:00 3585, PCN: ASPROD1, Group: XXXXX, ID# [id number], Questions: . THIS IS NOT INSURANCE.] clonazepam 1 mg tablet RxNorm: 843219 TAKE 1 TABLET BY MOUTH EV SUSAN MORNING 06/25/2018 07/23/2018 Inactive clonazepam 1 mg tablet RxNorm: 028680 TAKE 1 TABLET BY MOUTH EV SUSAN MORNING 05/23/2018 06/21/2018 Inactive primidone 50 mg tablet RxNorm: 249630 Tablet(s) TAKE 2 TABLETS BY MOUTH EVERY NIGHT AT BEDTIME 05/16/2018 08/25/2018 Inactive oxycodone-acetaminophen 7.5 mg-325 mg tablet RxNorm: 4850995 1-2 Tablet(s) PO TID as needed 04/25/2018 05/24/2018 Inactive Singulair 10 mg tablet RxNorm: 975406 1 Tablet(s) PO QD 04/25/2018 Inactive Medrol (Jose) 4 mg tablets in a dose pack RxNorm: 792546 Tablet(s) PO take as directed 04/25/2018 09/02/2018 Inactive clonazepam 1 mg tablet RxNorm: 293591 TAKE 1 TABLET BY MOUTH EV SUSAN MORNING 04/24/2018 05/22/2018 Inactive Plavix 75 mg tablet RxNorm: 772725 1 TABLET(S) PO QD 04/04/201807/02 Inactive [SAVINGS FOR NON-COVERED DRUGS -- BIN:00 3585, PCN: ASPROD1, Group: XXXXX, ID# [id number], Questions: . THIS IS NOT INSURANCE.] pravastatin 20 mg tablet RxNorm: 415234 1 Tablet(s) PO QD 03/21/2018 09/16/2018 Inactive ProAir HFA 90 mcg/actuation aerosol inhaler RxNorm: 122987 2 Puff(s) INH Q4H as needed 03/18/2018 03/17/2018 Inactive tamsulosin 0.4 mg capsule RxNorm: 383789 1 CAPSULE(S) PO QD 018 01/12/2019 Inactive clonazepam 1 mg tablet RxNorm: 464527 1 Tablet(s) PO QAM 02/25/2018 0 04/25/2018 Inactive tamsulosin 0.4 mg capsule RxNorm: 556381 1 Capsule(s) PO QD 018 03/13/2018 Inactive tamsulosin 0.4 mg capsule RxNorm: 792897 1 Capsule(s) PO QD 018 02/03/2018 Inactive tamsulosin 0.4 mg capsule RxNorm: 133253 1 Capsule(s) PO QD 018 02/12/2018 Inactive Ambien 5 mg tablet RxNorm: 831180 Tablet(s) TAKE 1 TAB LET BY MOUTH EVERY NIGHT AT BEDTIME 01/24/2018 08/05/2018 Inactive primidone 50 mg tablet RxNorm: 944369 Tablet(s) TAKE 2 TABLETS BY MOUTH EVERY NIGHT AT BEDTIME 01/18/2018 05/16/2018 Inactive cyclobenzaprine 10 mg tablet RxNorm: 788281 1 Tablet(s) PO TID as needed for muscle spasm 01/11/2018 02/09/2018 Inactive [SAVINGS FOR NON -COVERED DRUGS -- BIN:689208, N: ASPROD1, Group: XXXXX, ID# [id number], Questions: . THIS IS NOT INSURANCE.] clonazepam 1 mg tablet RxNorm: 645137 1 Tablet(s) PO QAM 12/24/2017 0 02/21/2018 Inactive prednisone 20 mg tablet RxNorm: 826200 1 Tablet(s) PO QD 11/06/2017 0 11/10/2017 Inactive EpiPen 2-Jose 0.3 mg/0.3 mL injection, auto-injector RxNorm: 338455 1 Unit Dose IM as needed 11/06/2017 09/24/2019 Inactive ProAir HFA 90 mcg/actuation aerosol inhaler RxNorm: 110762 2 Puff(s) INH Q4H as needed 10/30/2017 03/17/2018 Inactive primidone 50 mg tablet RxNorm: 974826 TAKE 2 TABLETS BY MOUTH EVERY NIGHT AT BEDTIME 10/15/2017 01/17/2018 Inactive Plavix 75 mg tablet RxNorm: 889902 1 Tablet(s) PO QD 10/01/201703/29 Inactive [SAVINGS FOR NON-COVERED DRUGS -- BIN:00 3585, PCN: ASPROD1, Group: XXXXX, ID# [id number], Questions: . THIS IS NOT INSURANCE.] clonazepam 1 mg tablet RxNorm: 210053 1 Tablet(s) PO QAM 09/19/2017 0 12/16/2017 Inactive primidone 50 mg tablet RxNorm: 343960 2 Tablet(s) PO QHS 08/29/2017 0 01/18/2018 Inactive oxycodone-acetaminophen 7.5 mg-325 mg tablet RxNorm: 9775853 1-2 Tablet(s) PO TID as needed 08/22/2017 09/19/2017 Inactive pravastatin 20 mg tablet RxNorm: 809657 1 Tablet(s) PO QD 08/21/2017 03/21/2018 Inactive carvedilol 3.125 mg tablet RxNorm: 872467 1 Tablet(s) P O BID to replace 6.25mg dose 08/21/2017 09/02/2017 Inactive primidone 50 mg tablet RxNorm: 916928 TAKE 2 TABLETS BY MOUTH EVERY NIGHT AT BEDTIME 06/18/2017 08/28/2017 Inactive clonazepam 1 mg tablet RxNorm: 758964 1 Tablet(s) PO QAM 06/04/2017 1 11/02/2016 Inactive Plavix 75 mg tablet RxNorm: 864106 1 Tablet(s) PO QD 04/10/201710/01 Inactive [SAVINGS FOR NON-COVERED DRUGS -- BIN:00 3585, PCN: ASPROD1, Group: XXXXX, ID# [id number], Questions: . THIS IS NOT INSURANCE.] pravastatin 20 mg tablet RxNorm: 525482 1 Tablet(s) PO QD 02/26/2017 08/24/2017 Inactive carvedilol 3.125 mg tablet RxNorm: 782120 1 Tablet(s) P O BID to replace 6.25mg dose 02/26/2017 08/21/2017 Inactive Ultram 50 mg tablet RxNorm: 485177 TAKE 1 TO 2 TABLETS BY MOUTH THREE TIMES DAILY NEEDED FOR PAIN 02/26/2017 03/07/2017 Inactive pravastatin 20 mg tablet RxNorm: 342188 1 Tablet(s) PO QD 02/26/2017 08/21/2017 Inactive carvedilol 3.125 mg tablet RxNorm: 335815 1 Tablet(s) P O BID to replace 6.25mg dose 02/26/2017 08/20/2017 Inactive clonazepam 0.5 mg tablet RxNorm: 521143 1 Tablet(s) PO QAM 02/14/20 17 02/13/2017 Inactive primidone 50 mg tablet RxNorm: 289181 1 Tablet(s) PO QHS 02/13/2017 0 05/01/2017 Inactive clonazepam 1 mg tablet RxNorm: 032420 1 Tablet(s) PO QAM 02/13/2017 0 05/13/2017 Inactive primidone 50 mg tablet RxNorm: 016252 1/2 Tablet(s) PO QD for 7 days then increase to 1 tablet at bedtime 01/09/2017 02/12/2017 Inactive pravastatin 20 mg tablet RxNorm: 322031 Tablet(s) 1 TABLET(S) PO QD 11/29/2016 02/25/2017 Inactive clonazepam 1 mg tablet RxNorm: 065854 1 Tablet(s) PO BID replac es 0.5mg dose 11/23/2016 01/08/2017 Inactive pravastatin 20 mg tablet RxNorm: 436583 1 TABLET(S) PO QD 11/17/2016 11/28/2016 Inactive Ambien 5 mg tablet RxNorm: 252717 TAKE 1 TABLET BY MOUTH EVERY NIGHT AT BEDTIME 11/17/2016 12/14/2016 Inactive clonazepam 0.5 mg tablet RxNorm: 334511 TAKE 1 TABLET BY MOUTH TWICE DAILY 11/17/2016 11/22/2016 Inactive Plavix 75 mg tablet RxNorm: 719438 1 Tablet(s) PO QD 11/06/201604/09 Inactive [SAVINGS FOR NON-COVERED DRUGS -- BIN:00 3585, PCN: ASPROD1, Group: XXXXX, ID# [id number], Questions: . THIS IS NOT INSURANCE.] Plavix 75 mg tablet RxNorm: 731749 1 Tablet(s) PO QD 08/28/201611/05 Inactive [SAVINGS FOR NON-COVERED DRUGS -- BIN:00 3585, PCN: ASPROD1, Group: XXXXX, ID# [id number], Questions: . THIS IS NOT INSURANCE.] Lidoderm 5 % topical patch RxNorm: 9487027 Application T OP 2 patches for 12hrs then off for 12hrs 08/28/2016 08/27/2016 Inactive clonazepam 0.5 mg tablet RxNorm: 894615 1 Tablet(s) PO BID 08/07/20 16 11/22/2016 Inactive pravastatin 20 mg tablet RxNorm: 756924 1 Tablet(s) PO QD 08/07/2016 11/04/2016 Inactive cyclobenzaprine 10 mg tablet RxNorm: 912935 1 Tablet(s) PO TID as needed for muscle spasm 08/07/2016 09/05/2016 Inactive [SAVINGS FOR NON -COVERED DRUGS -- BIN:558199, PCN: ASPROD1, Group: XXXXX, ID# [id number], Questions: . THIS IS NOT INSURANCE.] Plavix 75 mg tablet RxNorm: 935777 1 Tablet(s) PO QD 08/07/201608/27 Inactive [SAVINGS FOR NON-COVERED DRUGS -- BIN: 3585, PCN: ASPROD1, Group: XXXXX, ID# [id number], Questions: . THIS IS NOT INSURANCE.] carvedilol 3.125 mg tablet RxNorm: 860297 1 Tablet(s) P O BID to replace 6.25mg dose 08/07/2016 02/02/2017 Inactive clonazepam 0.5 mg tablet RxNorm: 560576 1 Tablet(s) PO BID 07/04/20 16 08/07/2016 Inactive Plavix 75 mg tablet RxNorm: 362777 1 TABLET(S) PO QD 06/20/201608/06 Inactive [SAVINGS FOR NON-COVERED DRUGS -- BIN: 3585, PCN: ASPROD1, Group: XXXXX, ID# [id number], Questions: . THIS IS NOT INSURANCE.] clonazepam 0.5 mg tablet RxNorm: 892992 1 Tablet(s) PO BID 06/09/20 16 07/03/2016 Inactive pravastatin 20 mg tablet RxNorm: 652689 1 Tablet(s) PO QD 05/23/2016 08/06/2016 Inactive pravastatin 20 mg tablet RxNorm: 270439 1 Tablet(s) PO QD 05/23/2016 05/22/2016 Inactive carvedilol 3.125 mg tablet RxNorm: 648598 1 Tablet(s) P O BID to replace 6.25mg dose 05/10/2016 08/06/2016 Inactive carvedilol 3.125 mg tablet RxNorm: 907476 1 Tablet(s) P O BID to replace 6.25mg dose 05/10/2016 05/09/2016 Inactive clonazepam 0.5 mg tablet RxNorm: 306511 1 Tablet(s) PO BID 05/10/20 16 06/08/2016 Inactive carvedilol 6.25 mg tablet RxNorm: 433202 1 Tablet(s) PO QD 05/10/20 16 05/10/2016 Inactive simvastatin 40 mg tablet RxNorm: 014453 1 TABLET(S) PO QD 04/10/2016 05/09/2016 Inactive Medrol (Jose) 4 mg tablets in a dose pack RxNorm: 465267 Tablet(s) PO As Directed 01/13/2016 05/09/2016 Inactive cyclobenzaprine 10 mg tablet RxNorm: 117087 1 TABLET(S) PO TID NEEDED FOR SPASM 01/11/2016 03/10/2016 Inactive [SAVINGS FOR NON -COVERED DRUGS -- BIN:473673, PCN: ASPROD1, Group: XXXXX, ID# [id number], Questions: . THIS IS NOT INSURANCE.] Plavix 75 mg tablet RxNorm: 245244 1 Tablet(s) PO QD 12/30/201506/19 Inactive [SAVINGS FOR NON-COVERED DRUGS -- BIN: 3585, PCN: ASPROD1, Group: XXXXX, ID# [id number], Questions: . THIS IS NOT INSURANCE.] Ambien 5 mg tablet RxNorm: 715410 TAKE 1 TABLET BY MOUTH EVERY DAY AT BEDTIME 11/15/2015 11/17/2016 Inactive simvastatin 40 mg tablet RxNorm: 656581 1 Tablet(s) PO QD 10/11/2015 01/12/2019 Inactive simvastatin 40 mg tablet RxNorm: 043007 1 Tablet(s) PO QD 10/08/2015 10/10/2015 Inactive Ambien 5 mg tablet RxNorm: 340542 TAKE 1 TABLET BY MOUTH EVERY NIGHT AT BEDTIME 07/27/2015 11/15/2015 Inactive Plavix 75 mg tablet RxNorm: 108394 1 Tablet(s) PO QD 06/28/201512/29 Inactive [SAVINGS FOR NON-COVERED DRUGS -- BIN:00 3585, PCN: ASPROD1, Group: XXXXX, ID# [id number], Questions: . THIS IS NOT INSURANCE.] Coreg 6.25 mg tablet RxNorm: 517622 1 TABLET(S) PO BID 04/19/2015 Inactive [SAVINGS FOR NON-COVERED DRUGS -- BIN:00 3585, PCN: ASPROD1, Group: XXXXX, ID# XXXXXXX, Questions: . THIS IS NOT INSURANCE.] simvastatin 40 mg tablet RxNorm: 654242 1 Tablet(s) PO QD 04/05/2015 04/04/2015 Inactive simvastatin 40 mg tablet RxNorm: 699801 1 Tablet(s) PO QD 04/05/2015 10/11/2015 Inactive Plavix 75 mg tablet RxNorm: 670133 1 TABLET(S) PO QD 03/22/201504/20 Inactive [SAVINGS FOR NON-COVERED DRUGS -- BIN:00 3585, PCN: ASPROD1, Group: XXXXX, ID# [id number], Questions: . THIS IS NOT INSURANCE.] Plavix 75 mg tablet RxNorm: 839060 1 Tablet(s) PO QD 03/22/201506/28 Inactive [SAVINGS FOR NON-COVERED DRUGS -- BIN:00 3585, PCN: ASPROD1, Group: XXXXX, ID# [id number], Questions: . THIS IS NOT INSURANCE.] Ambien 5 mg tablet RxNorm: 677470 1 Tablet(s) PO QHS 12/17/201407/28 Inactive [SAVINGS FOR NON-COVERED DRUGS -- BIN:00 3585, PCN: ASPROD1, Group: XXXXX, ID# XXXXXXX, Questions: . THIS IS NOT INSURANCE.] Coreg 6.25 mg tablet RxNorm: 047824 1 Tablet(s) PO BID 12/17/2014 Inactive [SAVINGS FOR NON-COVERED DRUGS -- BIN:00 3585, PCN: ASPROD1, Group: XXXXX, ID# XXXXXXX, Questions: . THIS IS NOT INSURANCE.] Plavix 75 mg tablet RxNorm: 356173 1 Tablet(s) PO QD 12/17/201403/16 Inactive [SAVINGS FOR NON-COVERED DRUGS -- BIN:00 3585, PCN: ASPROD1, Group: XXXXX, ID# XXXXXXX, Questions: . THIS IS NOT INSURANCE.] cyclobenzaprine 10 mg tablet RxNorm: 824304 1 Tablet(s) PO TID as needed for spasm 12/17/2014 03/16/2015 Inactive [SAVINGS FOR NON -COVERED DRUGS -- BIN:230865, PCN: ASPROD1, Group: XXXXX, ID# XXXXXXX, Questions: . THIS IS NOT INSURANCE.] Coreg 6.25 mg tablet RxNorm: 698504 1 Tablet(s) PO BID 10/21/201409/2014 Inactive [SAVINGS FOR NON-COVERED DRUGS -- BIN:00 3585, PCN: ASPROD1, Group: XXXXX, ID# XXXXXXX, Questions: . THIS IS NOT INSURANCE.] Plavix 75 mg tablet RxNorm: 949155 1 Tablet(s) PO QD 10/21/201412/16 Inactive [SAVINGS FOR NON-COVERED DRUGS -- BIN:00 3585, PCN: ASPROD1, Group: XXXXX, ID# XXXXXXX, Questions: . THIS IS NOT INSURANCE.] Plavix 75 mg tablet RxNorm: 297948 1 Tablet(s) PO QD Ne eds routine check up--last seen March 2012 09/21/2014 10/20/2014 Inactive [SAVINGS FOR UNINSURED PATIENTS -- BIN:206862, PCN: ASPROD1, Group: AME08, ID# [id number], Process claim through [employer], for questions: . THIS IS NOT INSURANCE.] Ambien 5 mg tablet RxNorm: 992016 1 Tablet(s) PO QHS 09/21/201412/16 Inactive [SAVINGS FOR UNINSURED PATIENTS -- BIN:0 27381, PCN: ASPROD1, Group: AME08, ID# [id number], Process claim through [employer], for questions: . THIS IS NOT INSURANCE.] Coreg 6.25 mg tablet RxNorm: 846998 1 Tablet(s) PO BID 09/21/201411/2014 Inactive [SAVINGS FOR UNINSURED PATIENTS -- BIN:0 50646, PCN: ASPROD1, Group: AME08, ID# [id number], Process claim through [employer], for questions: . THIS IS NOT INSURANCE.] Plavix 75 mg tablet RxNorm: 130951 1 Tablet(s) PO QD Ne eds routine check up--last seen March 2012 08/04/2014 09/02/2014 Inactive [SAVINGS FOR UNINSURED PATIENTS -- BIN:857926, PCN: ASPROD1, Group: AME08, ID# [id number], Process claim through [employer], for questions: . THIS IS NOT INSURANCE.] Plavix 75 mg tablet RxNorm: 996031 1 Tablet(s) PO QD Ne eds routine check up--last seen March 2012 08/03/2014 08/03/2014 Inactive Protonix 40 mg tablet,delayed release RxNorm: 284730 1 Tablet(s ) PO QD 06/08/2014 02/17/2019 Inactive [SAVINGS FOR UNINSUR ED PATIENTS -- BIN:599364, PCN: ASPROD1, Group: AME08, ID# [id number], Process claim through [employer], for questions: . THIS IS NOT INSURANCE.] hydrocodone 10 mg-acetaminophen 325 mg tablet RxNorm: 531582 1 Tablet(s) PO BID as needed for pain 02/18/2014 03/31/2015 Inactive Coreg 6.25 mg tablet RxNorm: 096763 1 Tablet(s) PO BID 02/02/2014 Inactive Protonix 40 mg granules delayed-release packet RxNorm: 113688 1 Tablet(s) PO QD 01/13/2014 06/08/2014 Inactive Plavix 75 mg tablet RxNorm: 566143 1 Tablet(s) PO QD Ne eds routine check up--last seen March 2012 01/13/2014 08/02/2014 Inactive Plavix 75 mg tablet RxNorm: 728496 1 Tablet(s) PO QD Ne eds routine check up--last seen March 2012 12/09/2013 01/07/2014 Inactive Coreg 6.25 mg tablet RxNorm: 680427 1 Tablet(s) PO BID 12/09/2013 Inactive Cymbalta 60 mg capsule,delayed release RxNorm: 068454 1 Capsule (s) PO QD 10/31/2013 01/12/2014 Inactive Coreg 6.25 mg tablet RxNorm: 975064 1 Tablet(s) PO BID 10/31/2013 Inactive Plavix 75 mg tablet RxNorm: 966397 1 Tablet(s) PO QD Ne eds routine check up--last seen March 2012 10/31/2013 11/29/2013 Inactive Coreg 6.25 mg tablet RxNorm: 691555 1 Tablet(s) PO BID 10/31/2013 Inactive atorvastatin 40 mg tablet RxNorm: 523318 1 Tablet(s) PO QD 10/31/1903/31/2015 Inactive Plavix 75 mg tablet RxNorm: 776621 1 Tablet(s) PO QD Ne eds routine check up--last seen March 2012 09/23/2013 10/30/2013 Inactive cyclobenzaprine 10 mg tablet RxNorm: 028623 1 Tablet(s) PO TID as needed for spasm 09/23/2013 No Stop Date Active cyclobenzaprine 10 mg tablet RxNorm: 578467 1 Tablet(s) PO TID as needed for spasm 07/04/2013 09/22/2013 Inactive atorvastatin 40 mg tablet RxNorm: 639709 1 Tablet(s) PO QD 06/23/20 13 10/30/2013 Inactive atorvastatin 40 mg tablet RxNorm: 413237 1 Tablet(s) PO QD 04/22/20 13 06/22/2013 Inactive Nucynta 50 mg tablet RxNorm: 069868 1-2 Tablet(s) PO Q6H as nee ded for pain 01/01/2013 01/12/2014 Inactive Ambien 5 mg tablet RxNorm: 081287 1 Tablet(s) PO QHS 10/16/201201/13 Inactive Plavix 75 mg tablet RxNorm: 625690 1 Tablet(s) PO QD 09/19/201209/13 Inactive Protonix 40 mg tablet,delayed release RxNorm: 288072 1 Tablet(s ) PO QD 09/19/2012 09/18/2012 Inactive simvastatin 40 mg tablet RxNorm: 912046 1 Tablet(s) PO QD 09/19/2012 02/23/2013 Inactive Protonix 40 mg tablet,delayed release RxNorm: 127959 1 Tablet(s ) PO QD 09/19/2012 09/13/2013 Inactive Ultram 50 mg tablet RxNorm: 157377 1-2 Tablet(s) PO QID as need ed for pain 09/19/2012 02/26/2017 Inactive propranolol 80 mg tablet RxNorm: 841251 1 Tablet(s) PO QHS 09/19/19 13 09/18/2012 Inactive Cymbalta 60 mg capsule,delayed release RxNorm: 608378 1 Capsule (s) PO QD 09/19/2012 09/18/2012 Inactive Cymbalta 60 mg capsule,delayed release RxNorm: 996025 1 Capsule (s) PO QD 09/19/2012 03/17/2013 Inactive propranolol 80 mg tablet RxNorm: 729341 1 Tablet(s) PO QHS 09/19/19 13 02/23/2013 Inactive hydrocodone-acetaminophen 10 mg-325 mg tablet RxNorm: 805785 2 1-2 Tablet(s) PO QID 07/25/2012 02/23/2013 Inactive Ambien 10 mg tablet RxNorm: 803193 1 Tablet(s) PO QHS as needed for sleep 07/10/2012 01/27/2013 Inactive propranolol 80 mg tablet RxNorm: 752827 1 Tablet(s) PO QHS 05/13/20 12 09/18/2012 Inactive hydrocodone-acetaminophen 10 mg-325 mg tablet RxNorm: 584004 2 1-2 Tablet(s) PO QID 05/02/2012 No Stop Date Active Restoril 15 mg Cap RxNorm: 955688 1-2 Capsule(s) PO QHS 05/02/2012 Inactive propranolol 80 mg tablet RxNorm: 307814 1 Tablet(s) PO QHS 05/02/20 12 05/12/2012 Inactive Chantix Starting Month Box 0.5 mg (11)-1 mg (42) Tabs in a Dose Pack RxNorm: 267690 Tablet(s) PO As Directed 04/01/2012 01/27/2013 Inactive simvastatin 40 mg tablet RxNorm: 940699 1 Tablet(s) PO QD 03/28/2012 09/18/2012 Inactive simvastatin 40 mg Tab RxNorm: 967256 1 Tablet(s) PO QD 03/22/201207/2012 Inactive Effient 10 mg Tab RxNorm: 131398 1 Tablet(s) PO QD 03/22/2012 012 Inactive Prilosec 40 mg Capsule, delayed release RxNorm: 910427 1 Capsul e(s) PO QD 03/22/2012 09/18/2012 Inactive Prilosec 40 mg Capsule, delayed release RxNorm: 028131 1 Capsul e(s) PO QD 03/19/2012 03/21/2012 Inactive Cymbalta 60 mg capsule,delayed release RxNorm: 724421 1 Capsule (s) PO QD 03/04/2012 08/30/2012 Inactive hydrocodone-acetaminophen 10 mg-325 mg Tab RxNorm: 3431367 1-2 T ablet(s) PO QID 01/23/2012 No Stop Date Active Cymbalta 60 mg Capsule, delayed release RxNorm: 654542 1 Capsul e(s) PO QD 01/23/2012 03/03/2012 Inactive Cipro 500 mg Tab RxNorm: 924545 1 Tablet(s) PO BID 12/20/2011 012 Inactive Cymbalta 60 mg Capsule, delayed release RxNorm: 161605 1 Capsul e(s) PO QD 12/13/2011 01/22/2012 Inactive nortriptyline 75 mg Cap RxNorm: 974713 1 Capsule(s) PO QHS 11/29/19 12 04/02/2012 Inactive Cymbalta 60 mg Cap RxNorm: 714737 1 Capsule(s) PO QD 10/24/201112/11 Inactive propranolol 80 mg Tab RxNorm: 810463 1 Tablet(s) PO QHS 10/24/2011 Inactive hydrocodone-acetaminophen 10 mg-325 mg Tab RxNorm: 9080937 1-2 T ablet(s) PO QID 09/29/2011 No Stop Date Active hydrocodone-acetaminophen 10 mg-325 mg Tab RxNorm: 9757966 1-2 T ablet(s) PO QID 07/25/2011 No Stop Date Active hydrocodone-acetaminophen 10 mg-325 mg Tab RxNorm: 8827604 1-2 T ablet(s) PO QID 02/14/2011 No Stop Date Active Prilosec 40 mg Cap RxNorm: 221241 1 Capsule(s) PO 01/03/2011 01/13/20 19 Inactive nortriptyline 75 mg Cap RxNorm: 526161 1 Capsule(s) PO QHS 01/04/20 11 07/01/2011 Inactive Neurontin 600 mg Tab RxNorm: 600678 1 Tablet(s) PO QHS 12/08/201011/2011 Inactive hydrocodone-acetaminophen 5 mg-500 mg Tab RxNorm: 529069 2 Tablet(s) PO Q4-6H prn 10/20/2010 01/08/2011 Inactive Diltzac ER 240 mg Cap RxNorm: 299611 1 Capsule(s) PO QD 07/14/2010 Inactive Nortriptyline 75 mg Cap RxNorm: 586952 1 Capsule(s) PO QHS 05/09/20 10 01/12/2019 Inactive Neurontin 600 mg Tab RxNorm: 066759 1 Tablet(s) PO QD 03/17/201012/17 Inactive Nortriptyline 75 mg Cap RxNorm: 178006 1 Capsule(s) PO 01/12/2010 Inactive Nortriptyline 50 mg Cap RxNorm: 580106 1 Capsule(s) PO QHS 01/13/20 10 01/11/2010 Inactive Diltzac ER 240 mg Cap RxNorm: 635406 1 Capsule(s) PO QD 12/06/2009 Inactive aspirin 81 mg Tab RxNorm: 367679 1 Tablet(s) PO QD No Start Date Active Vitamin D3 2,000 unit tablet RxNorm: 721271 1 Tablet(s) PO QD No Star t Date Active xubnptlwb-tdfslzebz-ajgslc complex no.233 oral RxNorm: oral No Start Date Active primidone 50 mg tablet RxNorm: 312741 2 Tablet(s) PO BID No Start Date Active Prilosec 40 mg Capsule, delayed release RxNorm: 648598 1 Capsul e(s) PO QD No Start Date 03/18/2012 Inactive Prilosec 20 mg Cap RxNorm: 855852 1 Capsule(s) PO QHS No Start Date 0 01/02/2011 Inactive primidone 50 mg tablet RxNorm: 735974 1/2 Tablet(s) PO QHS for 1week then go full tab if needed No Start Date 05/01/2017 Inactive ProAir HFA 90 mcg/actuation aerosol inhaler RxNorm: 029697 2 Puff(s) INH Q4H as needed No Start Date 10/29/2017 Inactive clonazepam 0.5 mg tablet RxNorm: 091987 1/2 Tablet(s) PO BID No Sta rt Date 02/12/2017 Inactive Pepcid AC 10 mg Tab RxNorm: 949582 1 Tablet(s) PO QAM No Start Date 0 02/19/2011 Inactive Coreg Oral RxNorm: Oral No Start Date 01/12/2014 Inactive primidone 50 mg tablet RxNorm: 933815 1/2 Tablet(s) PO QD for 7 days then increase to 1 tablet at bedtime No Start Date 01/08/2017 Inactive Medrol (Jose) 4 mg tablets in a dose pack RxNorm: 157326 Tablet(s) PO As Directed No Start Date 01/12/2016 Inactive Plavix 75 mg tablet RxNorm: 524524 1 Tablet(s) PO QD No Start Date Inactive cyclobenzaprine 10 mg tablet RxNorm: 777243 1 Tablet(s) PO TID as needed for spasm No Start Date 07/03/2013 Inactive Bevespi Aerosphere 9 mcg-4.8 mcg HFA aerosol inhaler RxNorm: 5687266 2 Puff(s) INH BID No Start Date 02/18/2019 Inactive tramadol 50 mg tablet RxNorm: 263180 1-2 Tablet(s) PO TID as ne eded for pain No Start Date 01/12/2019 Inactive clonazepam 1 mg tablet RxNorm: 490018 1 Tablet(s) PO QAM No Start D ate 09/18/2018 Inactive hydrocodone-acetaminophen 5 mg-500 mg Tab RxNorm: 249765 2 Tablet(s) PO Q4-6H prn No Start Date 10/19/2010 Inactive lisinopril 20 mg Tab RxNorm: 752123 1/2 Tablet(s) PO QD No Start Da te 03/12/2011 Inactive Lyrica 75 mg capsule RxNorm: 271616 1 Capsule(s) PO QHS No Start Da te 10/08/2019 Inactive Protonix 40 mg tablet,delayed release RxNorm: 073245 1 Tablet(s ) PO QD No Start Date 06/07/2014 Inactive Lipitor Oral RxNorm: Oral No Start Date 01/12/2014 Inactive primidone 50 mg tablet RxNorm: 190970 2 Tablet(s) PO QAM and 1 tablet at HS No Start Date 02/17/2019 Inactive hydrocodone-acetaminophen 10 mg-325 mg Tab RxNorm: 9927030 1-2 T ablet(s) PO QID No Start Date 02/13/2011 Inactive Ultram 50 mg tablet RxNorm: 737411 1-2 Tablet(s) PO QID as need ed for pain No Start Date 09/18/2012 Inactive Effient 10 mg Tab RxNorm: 420224 1 Tablet(s) PO QD No Start Date 01/2012 Inactive Bevespi Aerosphere 9 mcg-4.8 mcg HFA aerosol inhaler RxNorm: 9733593 2 Puff(s) INH BID No Start Date 10/29/2017 Inactive Neurontin Oral RxNorm: Oral No Start Date 01/12/2010 Inactive primidone 50 mg tablet RxNorm: 681551 1 Tablet(s) PO QD No Start Da te 01/12/2019 Inactive Chantix Starting Month Box 0.5 mg (11)-1 mg (42) Tabs in a Dose Pack RxNorm: 266611 Tablet(s) PO No Start Date 03/31/2012 Inactive atenolol 25 mg Tab RxNorm: 703895 1 Tablet(s) PO QD No Start Date 02/2012 Inactive Neurontin 600 mg Tab RxNorm: 867734 1 Tablet(s) PO QD No Start Date 0 03/16/2010 Inactive Nucynta 50 mg tablet RxNorm: 056977 1-2 Tablet(s) PO Q6H as nee ded for pain No Start Date 12/31/2012 Inactive simvastatin 40 mg Tab RxNorm: 940562 1 Tablet(s) PO QD No Start Date 03/21/2012 Inactive Medication Administered No Medication Administered data Immunizations Vaccine Codes Date Status Influenza CVX: 135 07/04/2017 Complete Results Observation Observation Code Item Item Code Result Date S [facility] Location COMPLETE BLOOD COUNT [id number] WBC 4.9 10e9/L 09/30/19 20 Unknown COMPLETE BLOOD COUNT [id number] RBC 4.65 10e12/L 2019 Unknown COMPLETE BLOOD COUNT [id number] HEMOGLOBIN 13.8 g/dL 09/30/19 20 Unknown COMPLETE BLOOD COUNT [id number] HEMATOCRIT 42.3 % 09/30/19 20 Unknown COMPLETE BLOOD COUNT [id number] MCV 91.0 fL 0 Unknown COMPLETE BLOOD COUNT [id number] MCH 29.7 pg 0 Unknown COMPLETE BLOOD COUNT [id number] MCHC 32.6 g/dL 0 Unknown COMPLETE BLOOD COUNT [id number] PLATELET COUNT 230 10e9/L Unknown COMPLETE BLOOD COUNT [id number] Mean Plt Volume 9.9 fL Unknown COMPLETE BLOOD COUNT 1017814 Neut Auto 52.5 % 0 Unknown COMPLETE BLOOD COUNT [id number] Lymph Auto 30.8 % 09/30/19 20 Unknown COMPLETE BLOOD COUNT [id number] [place] Auto 11.2 % 0 Unknown COMPLETE BLOOD COUNT [id number] RDW 13.5 % 0 Unknown COMPLETE BLOOD COUNT [id number] Eos Auto 5.1 % 0 Unknown COMPLETE BLOOD COUNT [id number] Baso Auto 0.4 % 0 Unknown COMPLETE BLOOD COUNT [id number] Neutrophil Abs 2.57 10e9/L Unknown COMPLETE BLOOD COUNT [id number] Lymphocyte Abs 1.51 10e9/L Unknown COMPLETE BLOOD COUNT [id number] Monocyte Abs 0.55 10e9/L 09/17 Unknown COMPLETE BLOOD COUNT [id number] Eosinophil Abs 0.25 10e9/L Unknown COMPLETE BLOOD COUNT [id number] RDW-SD 43.9 fL 0 Unknown COMPLETE BLOOD COUNT [id number] Basophil Abs 0.02 10e9/L 09/17 Unknown GFR CALC [id number] GFR Non Afr Amr >60 mL/min 09/30/2019 Un known GFR CALC [id number] GFR Afr Amr >60 mL/min 09/30/2019 Unknow n THYROID STIMULATING HORMONE 07334 TSH 1.129 uIU/mL 09/30/2019 Unknown PSA EQUIMOLAR BARBIE 64180 PSA Total 0.77 ng/mL 0 Unknown [facility] 56010 Cholesterol 192 mg/dL 09/30/2019 Unkno wn L[facility] GROUP 69245 Triglyceride 86 mg/dL 09/30/2019 Unkn own LIP[facility] GROUP 44131 HDL CHOLESTEROL 64 mg/dL 09/30/2019 U nknown LIPID GROUP 51336 Chol/HDL Ratio 3.00 ratio 09/30/2019 U nknown LIPID GROUP 10205 NON-HDL Chol 128 mg/dL 09/30/2019 Unkn own LIP[facility] GROUP 61774 LDL Cholesterol 111 mg/dL 09/30/2019 U nknown COMPREHENSIVE METABOLIC 55210 AST 17 U/L 2019 Unknown COMPREHENSIVE METABOLIC 59935 ALT 10 U/L 2019 Unknown COMPREHENSIVE METABOLIC 11859 BUN 13 mg/dL 2019 Unknown COMPREHENSIVE METABOLIC 22434 ALBUMIN 4.3 g/dL 2019 Unknown COMPREHENSIVE METABOLIC 44230 CHLORIDE 102 mmol/L 09/30 Unknown COMPREHENSIVE METABOLIC 63433 Bili Total 0.6 mg/dL 09/30 Unknown COMPREHENSIVE METABOLIC 22646 ALK PHOS 91 U/L 2019 Unknown COMPREHENSIVE METABOLIC 83114 SODIUM 138 mmol/L 09/30 Unknown COMPREHENSIVE METABOLIC 41928 CREATININE 1.09 mg/dL 09/17 Unknown COMPREHENSIVE METABOLIC 71342 CALCIUM 9.0 mg/dL 2019 Unknown COMPREHENSIVE METABOLIC 57536 POTASSIUM 4.5 mmol/L 09/30 Unknown COMPREHENSIVE METABOLIC 39964 Total Protein 6.8 g/dL Unknown COMPREHENSIVE METABOLIC 96014 Glucose 91 mg/dL 2019 Unknown COMPREHENSIVE METABOLIC 46132 Bicarbonate 28 mmol/L 09/17 Unknown COMPREHENSIVE METABOLIC 75820 AGAP 8 mmol/L 2019 Unknown COMPLETE BLOOD COUNT [id number] WBC 4.9 10e9/L 09/04/20 18 Unknown COMPLETE BLOOD COUNT [id number] RBC 4.42 10e12/L 2017 Unknown COMPLETE BLOOD COUNT 5300705 HEMOGLOBIN 13.4 g/dL 09/04/20 18 Unknown COMPLETE BLOOD COUNT [id number] HEMATOCRIT 40.5 % 09/04/20 18 Unknown COMPLETE BLOOD COUNT 2720566 MCV 91.6 fL 8 Unknown COMPLETE BLOOD COUNT 8793936 MCH 30.3 pg 8 Unknown COMPLETE BLOOD COUNT 2104654 MCHC 33.1 g/dL 8 Unknown COMPLETE BLOOD COUNT 8825190 PLATELET COUNT 224 10e9/L Unknown COMPLETE BLOOD COUNT 2422133 Mean Plt Volume 9.9 fL Unknown COMPLETE BLOOD COUNT 0082256 Neut Auto 60.8 % 8 Unknown COMPLETE BLOOD COUNT [id number] Lymph Auto 26.8 % 09/04/20 18 Unknown COMPLETE BLOOD COUNT 9462139 [place] Auto 10.4 % 8 Unknown COMPLETE BLOOD COUNT 9416182 RDW 12.8 % 8 Unknown COMPLETE BLOOD COUNT 2264479 Eos Auto 1.6 % 8 Unknown COMPLETE BLOOD COUNT 4520037 Baso Auto 0.4 % 8 Unknown COMPLETE BLOOD COUNT [id number] Neutrophil Abs 2.98 10e9/L Unknown COMPLETE BLOOD COUNT [id number] Lymphocyte Abs 1.31 10e9/L Unknown COMPLETE BLOOD COUNT [id number] Monocyte Abs 0.51 10e9/L 08/17 Unknown COMPLETE BLOOD COUNT [id number] Eosinophil Abs 0.08 10e9/L Unknown COMPLETE BLOOD COUNT 7505853 RDW-SD 41.6 fL 8 Unknown COMPLETE BLOOD COUNT [id number] Basophil Abs 0.02 10e9/L 08/17 Unknown COMPREHENSIVE METABOLIC 18176 AST 16 U/L 2017 Unknown COMPREHENSIVE METABOLIC 15657 ALT 8 U/L 2017 Unknown COMPREHENSIVE METABOLIC 15827 BUN 12 mg/dL 2017 Unknown COMPREHENSIVE METABOLIC 20532 ALBUMIN 4.4 g/dL 2017 Unknown COMPREHENSIVE METABOLIC 19718 CHLORIDE 107 mmol/L 09/04 Unknown COMPREHENSIVE METABOLIC 45753 Bili Total 1.0 mg/dL 09/04 Unknown COMPREHENSIVE METABOLIC 93613 ALK PHOS 58 U/L 2017 Unknown COMPREHENSIVE METABOLIC 34425 SODIUM 142 mmol/L 09/04 Unknown COMPREHENSIVE METABOLIC 19959 CREATININE 0.97 mg/dL 08/17 Unknown COMPREHENSIVE METABOLIC 33765 CALCIUM 9.2 mg/dL 2017 Unknown COMPREHENSIVE METABOLIC 29528 POTASSIUM 4.6 mmol/L 09/04 Unknown COMPREHENSIVE METABOLIC 13126 Total Protein 6.5 g/dL Unknown COMPREHENSIVE METABOLIC 75903 Glucose 96 mg/dL 2017 Unknown COMPREHENSIVE METABOLIC 30043 Bicarbonate 29 mmol/L 08/17 Unknown COMPREHENSIVE METABOLIC 21691 AGAP 6 mmol/L 2017 Unknown LIPID GROUP 46625 Cholesterol 182 mg/dL 09/04/2018 Unkno wn LIPID GROUP 62394 Triglyceride 84 mg/dL 09/04/2018 Unkn own LIPID GROUP 38028 HDL CHOLESTEROL 76 mg/dL 09/04/2018 U nknown LIPID GROUP 55110 Chol/HDL Ratio 2.39 ratio 09/04/2018 U nknown LIPID GROUP 32721 NON-HDL Chol 106 mg/dL 09/04/2018 Unkn own LIPID GROUP 71798 LDL Cholesterol 89 mg/dL 09/04/2018 U nknown GFR CALC 6767660 GFR Non Afr Amr >60 mL/min 09/04/2018 Un known GFR CALC 3635100 GFR Afr Amr >60 mL/min 09/04/2018 Unknow n THYROID STIMULATING HORMONE 51820 TSH 0.713 uIU/mL 09/04/2018 Unknown PSA EQUIMOLAR BARBIE 36734 PSA Total 0.66 ng/mL 8 Unknown A FOOD C P [id number] [place] Cl Class 0 11/17/2017 Unknown A FOOD C P [id number] [place] Ct <0.35 kU/L 11/17/2017 Unknow n A FOOD C P [id number] [place] Cl Class 0 11/17/2017 Unkn own A FOOD C P [id number] [place] Ct <0.35 kU/L 11/17/2017 Unk nown A FOOD C P [id number] Egg White Cl Class 0 11/17/2017 Unkno wn A FOOD C P [id number] Egg White Ct <0.35 kU/L 11/17/2017 Unkn own A FOOD C P 9400771 Egg Yolk Cl Class 0 11/17/2017 Unknow n A FOOD C P [id number] Egg Yolk Ct <0.35 kU/L 11/17/2017 Unkno wn A FOOD C P [id number] Cow Milk Cl Class 0 11/17/2017 Unknow n A FOOD C P 0631601 Cow Milk Ct <0.35 kU/L 11/17/2017 Unkno wn A FOOD C P 7559977 Peanut Cl Class 0 11/17/2017 Unknown A FOOD C P 2893968 Peanut Ct <0.35 kU/L 11/17/2017 Unknown A FOOD C P 8402877 Shrimp Cl Class 0 11/17/2017 Unknown A FOOD C P 9046577 Shrimp Ct <0.35 kU/L 11/17/2017 Unknown A FOOD C P 6373787 S[place] Cl Class 0 11/17/2017 Unknown A FOOD C P [id number] [place] Ct <0.35 kU/L 11/17/2017 Unknow n A FOOD C P [id number] Wheat Cl Class 0 11/17/2017 Unknown A FOOD C P 8231556 Wheat Ct <0.35 kU/L 11/17/2017 Unknown A FOOD C P 7310183 Potato Cl Class 0 11/17/2017 Unknown A FOOD C P 2004307 Potato Ct <0.35 kU/L 11/17/2017 Unknown A FOOD C P [id number] Beef Cl Class 2 11/17/2017 Unknown A FOOD C P 5181201 Beef Ct 0.88 kU/L 11/17/2017 Unknown A FOOD C P [id number] [place] Cl Class 0 11/17/2017 Unknown A FOOD C P [id number] [place] Ct <0.35 kU/L 11/17/2017 Unknown A FOOD C P [id number] Pork Cl Class 0 11/17/2017 Unknown A FOOD C P [id number] [place] Ct <0.35 kU/L 11/17/2017 Unknown A FOOD C P [id number] [place] Cl Class 0 11/17/2017 Unknown A FOOD C P [id number] [place] Ct <0.35 kU/L 11/17/2017 Unknown A FOOD C P [id number] [place] Cl Class 0 11/17/2017 Unkn own A FOOD C P [id number] [place] Ct <0.35 kU/L 11/17/2017 Unk nown A FOOD C P [id number] Tom[place] Cl Class 0 11/17/2017 Unknown A FOOD C P [id number] Tomato Ct <0.35 kU/L 11/17/2017 Unknown A FOOD C P 0093046 Tuna Cl Class 0 11/17/2017 Unknown A FOOD C P [id number] Tuna Ct <0.35 kU/L 11/17/2017 Unknown A FOOD C P [id number] [place] CL Class 0 11/17/2017 Unknown A FOOD C P [id number] [place] <0.35 kU/L 11/17/2017 Unknown A FOOD C P 6632603 Case[place] Cl Class 0 11/17/2017 Unknown A FOOD C P [id number] Casein Ct <0.35 kU/L 11/17/2017 Unknown A FOOD C P 0563281 Oat Cl Class 0 11/17/2017 Unknown A FOOD C P 4666362 Oat Ct <0.35 kU/L 11/17/2017 Unknown A FOOD C P [id number] [place] Cl Class 0 11/17/2017 Unknown A FOOD C P 6657391 [place] Ct <0.35 kU/L 11/17/2017 Unknown A FOOD C P 9320177 Chicken Meat CL Class 0 11/17/2017 Un known A FOOD C P 7998797 Chicken Meat Ct <0.35 kU/L 11/17/2017 U nknown A FOOD C P 9019094 [place] Cl Class 0 11/17/2017 Unknown A FOOD C P 6285803 [place] Ct <0.35 kU/L 11/17/2017 Unknown A FOOD C P [id number] Pecan Meat Cl Class 0 11/17/2017 Unkn own A FOOD C P [id number] [place]ec[place] Meat Ct <0.35 kU/L 11/17/2017 Unk nown A NUTS PNL [id number] Peanut Cl Class 0 11/17/2017 Unknown A NUTS PNL 3685886 Peanut Ct <0.35 kU/L 11/17/2017 Unknown A NUTS PNL 6907143 [place] Meat Cl Class 0 11/17/2017 Unk nown A NUTS PNL [id number] [place] Ct <0.35 kU/L 11/17/2017 Un known A NUTS PNL [id number] [place] Meat Cl Class 0 11/17/2017 Unkn own A NUTS PNL [id number] [place] Ct <0.35 kU/L 11/17/2017 Unk nown A NUTS PNL 4886773 [place] Cl Class 0 11/17/2017 Unknown A NUTS PNL 5710215 [place] Ct <0.35 kU/L 11/17/2017 Unknown A NUTS PNL 0390101 [place] Cl Class 0 11/17/2017 Unknow n A NUTS PNL 4663425 [place] Ct <0.35 kU/L 11/17/2017 Unkno wn A NUTS PNL 1172432 [place] Cl Class 0 11/17/2017 Unkno wn A NUTS PNL [id number] [place] Ct <0.35 kU/L 11/17/2017 Unkn own A NUTS PNL 5075011 [place] Cl Class 0 11/17/2017 Unknown A NUTS PNL 5111790 [place] Ct <0.35 kU/L 11/17/2017 Unknown A NUTS PNL 3053658 [place] Cl Class 0 11/17/2017 Unkno wn A NUTS PNL [id number] [place] Ct <0.35 kU/L 11/17/2017 Unkn own A NUTS PNL [id number] Allergen Interp See Note 11/17/2017 Un known A FRT/VG P [id number] [place] Cl Class 0 11/17/2017 Unkn own A FRT/VG P [id number] [place] Ct <0.35 kU/L 11/17/2017 Unk nown A FRT/VG P [id number] Pot[place] Cl Class 0 11/17/2017 Unknown A FRT/VG P 8206974 [place] Ct <0.35 kU/L 11/17/2017 Unknown A FRT/VG P [id number] [place] Cl Class 0 11/17/2017 Unkn own A FRT/VG P [id number] [place] Ct <0.35 kU/L 11/17/2017 Unk nown A FRT/VG P [id number] [place] Cl Class 0 11/17/2017 Unknown A FRT/VG P 8979019 [place] Ct <0.35 kU/L 11/17/2017 Unknown A FRT/VG P [id number] [place] Cl Class 0 11/17/2017 Unknown A FRT/VG P [id number] [place] Ct <0.35 kU/L 11/17/2017 Unknown A FRT/VG P [id number] [place] Cl Class 1 11/17/2017 Unknown A FRT/VG P 6357561 [place] Ct 0.48 kU/L 11/17/2017 Unknown A FRT/VG P 4469697 [place] Fruit Cl Class 0 11/17/2017 Unk nown A FRT/VG P 1709484 [place] [facility] <0.35 kU/L 11/17/2017 Un known A FRT/VG P [id number] [place] Fruit Cl Class 0 11/17/2017 Unk nown A FRT/VG P [id number] [place] Ct <0.35 kU/L 11/17/2017 Un known A FRT/VG P [id number] [place] Cl Class 0 11/17/2017 Unknown A FRT/VG P [id number] [place] Ct <0.35 kU/L 11/17/2017 Unknown A FRT/VG P [id number] [place] Cl Class 0 11/17/2017 Unknown A FRT/VG P 0860294 [place]a Ct <0.35 kU/L 11/17/2017 Unknown A FRT/VG P 8763887 Pear Fruit Cl Class 0 11/17/2017 Unkn own A FRT/VG P 6759934 [place] Ct <0.35 kU/L 11/17/2017 Unk nown A FRT/VG P [id number] Swt Potato Cl Class 0 11/17/2017 Unkn own A FRT/VG P 0667416 Swt [place] Ct <0.35 kU/L 11/17/2017 Unk nown THYROID STIMULATING HORMONE 75587 TSH 1.371 uIU/mL 09/03/2017 Unknown FREE T4 84591 T4 Free 1.26 ng/dL 09/03/2017 Unknown ASSAY TRIIODOTHYRONINE (T3) 12372 T3 Total 0.9 ng/mL Unknown COMPLETE BLOOD COUNT [id number] WBC 5.9 10e9/L 07/31/20 17 Unknown COMPLETE BLOOD COUNT [id number] RBC 4.64 10e12/L 2016 Unknown COMPLETE BLOOD COUNT 7541429 HEMOGLOBIN 14.2 g/dL 07/31/20 17 Unknown COMPLETE BLOOD COUNT 9346180 HEMATOCRIT 42.1 % 07/31/20 17 Unknown COMPLETE BLOOD COUNT 2304677 MCV 90.7 fL 7 Unknown COMPLETE BLOOD COUNT 2573105 MCH 30.6 pg 7 Unknown COMPLETE BLOOD COUNT 2502606 MCHC 33.7 g/dL 7 Unknown COMPLETE BLOOD COUNT 3347051 PLATELET COUNT 195 10e9/L Unknown COMPLETE BLOOD COUNT 5456877 Mean Plt Volume 10.0 fL Unknown COMPLETE BLOOD COUNT 5212381 Neut Auto 47.5 % 7 Unknown COMPLETE BLOOD COUNT [id number] Lymph Auto 37.4 % 07/31/20 17 Unknown COMPLETE BLOOD COUNT 0755430 [place] Auto 11.7 % 7 Unknown COMPLETE BLOOD COUNT 6257814 Eos Auto 3.2 % 7 Unknown COMPLETE BLOOD COUNT 5952579 RDW 12.8 % 7 Unknown COMPLETE BLOOD COUNT 0198684 Baso Auto 0.2 % 7 Unknown COMPLETE BLOOD COUNT 9045759 Neutrophil Abs 2.80 10e9/L Unknown COMPLETE BLOOD COUNT 5422213 Lymphocyte Abs 2.21 10e9/L Unknown COMPLETE BLOOD COUNT [id number] Monocyte Abs 0.69 10e9/L 07/18 Unknown COMPLETE BLOOD COUNT 1243138 Eosinophil Abs 0.19 10e9/L Unknown COMPLETE BLOOD COUNT 8883070 RDW-SD 41.6 fL 7 Unknown COMPLETE BLOOD COUNT [id number] Basophil Abs 0.01 10e9/L 07/18 Unknown LIPID GROUP 91427 Cholesterol 186 mg/dL 07/31/2017 Unkno wn LIPID GROUP 62463 Triglyceride 129 mg/dL 07/31/2017 Unkn own LIPID GROUP 59903 HDL CHOLESTEROL 79 mg/dL 07/31/2017 U nknown LIPID GROUP 34840 Chol/HDL Ratio 2.35 ratio 07/31/2017 U nknown LIPID GROUP 83658 NON-HDL Chol 107 mg/dL 07/31/2017 Unkn own LIPID GROUP 58105 LDL Cholesterol 81 mg/dL 07/31/2017 U nknown GFR CALC 3087181 GFR Non Afr Amr >60 mL/min 07/31/2017 Un known GFR CALC 2740343 GFR Afr Amr >60 mL/min 07/31/2017 Unknow n COMPREHENSIVE METABOLIC 11479 AST 19 U/L 2016 Unknown COMPREHENSIVE METABOLIC 96742 ALT 12 U/L 2016 Unknown COMPREHENSIVE METABOLIC 48097 BUN 15 mg/dL 2016 Unknown COMPREHENSIVE METABOLIC 31324 ALBUMIN 4.4 g/dL 2016 Unknown COMPREHENSIVE METABOLIC 38660 CHLORIDE 102 mmol/L 07/31 Unknown COMPREHENSIVE METABOLIC 30112 Bili Total 0.9 mg/dL 07/31 Unknown COMPREHENSIVE METABOLIC 20499 ALK PHOS 53 U/L 2016 Unknown COMPREHENSIVE METABOLIC 14385 SODIUM 138 mmol/L 07/31 Unknown COMPREHENSIVE METABOLIC 08526 CREATININE 1.06 mg/dL 07/18 Unknown COMPREHENSIVE METABOLIC 86940 CALCIUM 9.3 mg/dL 2016 Unknown COMPREHENSIVE METABOLIC 20465 POTASSIUM 4.0 mmol/L 07/31 Unknown COMPREHENSIVE METABOLIC 13831 Total Protein 6.8 g/dL Unknown COMPREHENSIVE METABOLIC 90134 Glucose 86 mg/dL 2016 Unknown COMPREHENSIVE METABOLIC 14850 Bicarbonate 28 mmol/L 07/18 Unknown COMPREHENSIVE METABOLIC 36974 AGAP 8 mmol/L 2016 Unknown COMPREHENSIVE METABOLIC 80900 AST 18 U/L 2015 Unknown COMPREHENSIVE METABOLIC 51409 ALT 9 U/L 2015 Unknown COMPREHENSIVE METABOLIC 10338 BUN 11 mg/dL 2015 Unknown COMPREHENSIVE METABOLIC 19583 ALBUMIN 4.2 g/dL 2015 Unknown COMPREHENSIVE METABOLIC 04390 CHLORIDE 104 mmol/L 05/19 Unknown COMPREHENSIVE METABOLIC 31430 Bili Total 1.2 mg/dL 05/19 Unknown COMPREHENSIVE METABOLIC 07668 ALK PHOS 54 U/L 2015 Unknown COMPREHENSIVE METABOLIC 83913 SODIUM 140 mmol/L 05/19 Unknown COMPREHENSIVE METABOLIC 97848 CREATININE 1.03 mg/dL 10/2015 Unknown COMPREHENSIVE METABOLIC 49410 CALCIUM 9.3 mg/dL 2015 Unknown COMPREHENSIVE METABOLIC 83713 POTASSIUM 4.9 mmol/L 05/19 Unknown COMPREHENSIVE METABOLIC 11627 Total Protein 6.7 g/dL Unknown COMPREHENSIVE METABOLIC 47028 Glucose 92 mg/dL 2015 Unknown COMPREHENSIVE METABOLIC 43978 Bicarbonate 28 mmol/L 10/2015 Unknown COMPREHENSIVE METABOLIC 48365 AGAP 8 mmol/L 2015 Unknown THYROID STIMULATING HORMONE 79722 TSH 1.545 uIU/mL 05/19/2016 Unknown GFR CALC 9178889 GFR Non Afr Amr >60 mL/min 05/19/2016 Un known GFR CALC [id number] GFR Afr Amr >60 mL/min 05/19/2016 Unknow n VITAMIN B 12 76757 VITAMIN B12 298 pg/mL 05/19/2016 Unkn own COMPLETE BLOOD COUNT [id number] WBC 5.2 10e9/L 05/19/20 16 Unknown COMPLETE BLOOD COUNT 1200566 RBC 4.34 10e12/L 2015 Unknown COMPLETE BLOOD COUNT 5353346 HEMOGLOBIN 12.9 g/dL 05/19/20 16 Unknown COMPLETE BLOOD COUNT 2695258 HEMATOCRIT 38.9 % 05/19/20 16 Unknown COMPLETE BLOOD COUNT 1777517 MCV 89.6 fL 6 Unknown COMPLETE BLOOD COUNT 9012758 MCH 29.7 pg 6 Unknown COMPLETE BLOOD COUNT 4422414 MCHC 33.2 g/dL 6 Unknown COMPLETE BLOOD COUNT [id number] PLATELET COUNT 200 10e9/L 10/2015 Unknown COMPLETE BLOOD COUNT 2806242 Mean Plt Volume 10.1 fL 10/2015 Unknown COMPLETE BLOOD COUNT 3807813 Neut Auto 45.4 % 6 Unknown COMPLETE BLOOD COUNT 8543537 Lymph Auto 35.6 % 05/19/20 16 Unknown COMPLETE BLOOD COUNT 2514658 [place] Auto 11.9 % 6 Unknown COMPLETE BLOOD COUNT 1763597 RDW 12.7 % 6 Unknown COMPLETE BLOOD COUNT 1436162 Eos Auto 6.7 % 6 Unknown COMPLETE BLOOD COUNT 5461818 Baso Auto 0.4 % 6 Unknown COMPLETE BLOOD COUNT 2601471 Neutrophil Abs 2.36 10e9/L Unknown COMPLETE BLOOD COUNT 4793340 Lymphocyte Abs 1.85 10e9/L Unknown COMPLETE BLOOD COUNT 1570042 Monocyte Abs 0.62 10e9/L 10/2015 Unknown COMPLETE BLOOD COUNT [id number] Eosinophil Abs 0.35 10e9/L Unknown COMPLETE BLOOD COUNT 1652372 RDW-SD 40.6 fL 6 Unknown COMPLETE BLOOD COUNT [id number] Basophil Abs 0.02 10e9/L 10/2015 Unknown LIPID GROUP 89495 Cholesterol 197 mg/dL 05/19/2016 Unkno wn LIPID GROUP 28461 Triglyceride 92 mg/dL 05/19/2016 Unkn own LIPID GROUP 19326 HDL CHOLESTEROL 58 mg/dL 05/19/2016 U nknown LIPID GROUP 32095 Chol/HDL Ratio 3.40 ratio 05/19/2016 U nknown LIPID GROUP 24462 NON-HDL Chol 139 mg/dL 05/19/2016 Unkn own LIPID GROUP 75326 LDL Cholesterol 121 mg/dL 05/19/2016 U nknown FREE T4 59329 T4 Free 1.19 ng/dL 05/19/2016 Unknown COMPREHENSIVE METABOLIC 67104 AST 19 U/L 2014 Unknown COMPREHENSIVE METABOLIC 12631 ALT 10 IU/L 2014 Unknown COMPREHENSIVE METABOLIC 56778 BUN 20 MG/DL 2014 Unknown COMPREHENSIVE METABOLIC 28854 ALBUMIN 4.4 GM/DL 2014 Unknown COMPREHENSIVE METABOLIC 67260 CHLORIDE 104 MMOL/L 04/05 Unknown COMPREHENSIVE METABOLIC 11573 BILI TOT 2.2 MG/DL 2014 Unknown COMPREHENSIVE METABOLIC 60198 ALK PHOS 55 U/L 2014 Unknown COMPREHENSIVE METABOLIC 41606 SODIUM 138 MMOL/L 04/05 Unknown COMPREHENSIVE METABOLIC 60055 CREATININE 1.04 MG/DL 03/18 Unknown COMPREHENSIVE METABOLIC 06594 CALCIUM 9.3 MG/DL 2014 Unknown COMPREHENSIVE METABOLIC 62529 POTASSIUM 4.5 MMOL/L 04/05 Unknown COMPREHENSIVE METABOLIC 77199 PROT TOT 6.7 GM/DL 2014 Unknown COMPREHENSIVE METABOLIC 27403 Glucose 77 MG/DL 2014 Unknown COMPREHENSIVE METABOLIC 16506 BICARB 25 MMOL/L 2014 Unknown COMPREHENSIVE METABOLIC 96813 ANION GAP 9 MEQ/L 2014 Unknown GFR CALC 2582954 GFR AA >60 ML/MIN 04/05/2015 Unknown GFR CALC 8921696 GFR NON-AA >60 ML/MIN 04/05/2015 Unknown LIPID GROUP 73142 HDL TEST 60 MG/DL 04/05/2015 Unknown LIPID GROUP 14511 TRIG 70 MG/DL 04/05/2015 Unknown LIPID GROUP 13815 TEST LDL 137 MG/DL 04/05/2015 Unknown LIPID GROUP 92062 CHOL 211 MG/DL 04/05/2015 Unknown LIPID GROUP 14017 RCHOL/HDL 3.52 RATIO 04/05/2015 Unknow n LIPID GROUP 16582 NON-HDL CH 151 MG/DL 04/05/2015 Unknow n COMPLETE BLOOD COUNT 6459711 WBC 5.3 10e9/L 04/05/20 15 Unknown COMPLETE BLOOD COUNT [id number] RBC 4.42 10e12/L 2014 Unknown COMPLETE BLOOD COUNT 9817083 HGB 13.4 g/dL 5 Unknown COMPLETE BLOOD COUNT 1334990 HCT DET 39.6 % 5 Unknown COMPLETE BLOOD COUNT 2921504 MCV 89.6 fL 5 Unknown COMPLETE BLOOD COUNT 9224682 MCH 30.3 pg 5 Unknown COMPLETE BLOOD COUNT 4422973 MCHC 33.8 g/dL 5 Unknown COMPLETE BLOOD COUNT 4984240 PLT 201 10e9/L 04/05/20 15 Unknown COMPLETE BLOOD COUNT 2162565 MPV 10.3 fL 5 Unknown COMPLETE BLOOD COUNT 7636862 LUPE % 56.4 % 5 Unknown COMPLETE BLOOD COUNT 3673981 LY % 24.8 % 5 Unknown COMPLETE BLOOD COUNT 2336451 MON % 12.8 % 5 Unknown COMPLETE BLOOD COUNT 5442351 EOS % 5.4 % 5 Unknown COMPLETE BLOOD COUNT 8596541 BASO % 0.6 % 5 Unknown COMPLETE BLOOD COUNT 7789288 RDW 13.2 % 5 Unknown COMPLETE BLOOD COUNT 4356063 ABS LUPE 2.99 10e9/L 015 Unknown COMPLETE BLOOD COUNT 5112124 ABS LYMPH 1.31 10e9/L 015 Unknown COMPLETE BLOOD COUNT 6993788 ABS MONO 0.68 10e9/L 015 Unknown COMPLETE BLOOD COUNT [id number] ABS EOS 0.29 10e9/L 015 Unknown COMPLETE BLOOD COUNT [id number] ABS BASO 0.03 10e9/L 015 Unknown COMPLETE BLOOD COUNT [id number] RDW-SD 42.3 fL 5 Unknown LIPID GROUP 33635 HDL TEST 51 MG/DL 07/19/2012 Unknown LIPID GROUP 72232 TRIG 129 MG/DL 07/19/2012 Unknown LIPID GROUP 07087 TEST LDL 98 MG/DL 07/19/2012 Unknown LIPID GROUP 15752 CHOL 175 MG/DL 07/19/2012 Unknown LIPID GROUP 12751 RCHOL/HDL 3.43 RATIO 07/19/2012 Unknow n COMPREHENSIVE METABOLIC 49012 AST 18 U/L 2011 Unknown COMPREHENSIVE METABOLIC 22922 ALT 12 IU/L 2011 Unknown COMPREHENSIVE METABOLIC 94736 BUN 10 MG/DL 2011 Unknown COMPREHENSIVE METABOLIC 38407 ALBUMIN 4.1 GM/DL 2011 Unknown COMPREHENSIVE METABOLIC 56711 CHLORIDE 103 MMOL/L 07/19 Unknown COMPREHENSIVE METABOLIC 97322 BILI TOT 0.9 MG/DL 2011 Unknown COMPREHENSIVE METABOLIC 07188 ALK PHOS 62 U/L 2011 Unknown COMPREHENSIVE METABOLIC 93034 SODIUM 138 MMOL/L 07/19 Unknown COMPREHENSIVE METABOLIC 59219 CREATININE 1.08 MG/DL 10/2011 Unknown COMPREHENSIVE METABOLIC 92340 CALCIUM 9.1 MG/DL 2011 Unknown COMPREHENSIVE METABOLIC 16386 POTASSIUM 4.2 MMOL/L 07/19 Unknown COMPREHENSIVE METABOLIC 19582 PROT TOT 6.7 GM/DL 2011 Unknown COMPREHENSIVE METABOLIC 79409 Glucose 101 MG/DL 2011 Unknown COMPREHENSIVE METABOLIC 69233 BICARB 27 MMOL/L 2011 Unknown COMPREHENSIVE METABOLIC 37421 ANION GAP 8 MEQ/L 2011 Unknown GFR CALC [id number] GFR AA >60 ML/MIN 07/19/2012 Unknown GFR CALC [id number] GFR NON-AA >60 ML/MIN 07/19/2012 Unknown Procedures Procedure Codes Date ROUTINE VENIPUNCTURE CPT-4: 15113 09/30/2019 COMPREHEN METABOLIC PANEL CPT-4: 75408 09/30/2019 COMPLETE CBC W/AUTO DIFF WBC CPT-4: 88389 09/30/2019 ASSAY OF PSA TOTAL CPT-4: 95347 09/30/2019 ASSAY THYROID STIM HORMONE CPT-4: 52593 09/30/2019 LIPID PANEL CPT-4: 42520 09/30/2019 ROUTINE VENIPUNCTURE CPT-4: 97867 09/24/2019 COMPLETE CBC W/AUTO DIFF WBC CPT-4: 25628 09/24/2019 COMPREHEN METABOLIC PANEL CPT-4: 04250 09/24/2019 LIPID PANEL CPT-4: 81472 09/24/2019 ASSAY THYROID STIM HORMONE CPT-4: 73703 09/24/2019 THER/PROPH/DIAG INJ SC/IM CPT-4: 34201 01/13/2019 TRIAMCINOLONE ACET INJ NOS CPT-4: J3301 01/13/2019 DEXAMETHASONE SODIUM PHOS CPT-4: J1100 01/13/2019 ROUTINE VENIPUNCTURE CPT-4: 03836 09/04/2018 COMPREHEN METABOLIC PANEL CPT-4: 98685 09/04/2018 COMPLETE CBC W/AUTO DIFF WBC CPT-4: 75391 09/04/2018 LIPID PANEL CPT-4: 85542 09/04/2018 ASSAY OF PSA TOTAL CPT-4: 80499 09/04/2018 ASSAY THYROID STIM HORMONE CPT-4: 58678 09/04/2018 URINALYSIS NONAUTO W/O SCOPE CPT-4: 78171 05/15/2018 ROUTINE VENIPUNCTURE CPT-4: 13844 11/16/2017 A FRT/VG P CPT-4: 0176986 11/16/2017 A FOOD C P CPT-4: 3054980 11/16/2017 A NUTS PNL CPT-4: 8412369 11/16/2017 THER/PROPH/DIAG INJ SC/IM CPT-4: 37650 11/06/2017 TRIAMCINOLONE ACET INJ NOS CPT-4: J3301 11/06/2017 DEXAMETHASONE SODIUM PHOS CPT-4: J1100 11/06/2017 ROUTINE VENIPUNCTURE CPT-4: 89947 09/03/2017 ASSAY OF FREE THYROXINE CPT-4: 30767 09/03/2017 ASSAY THYROID STIM HORMONE CPT-4: 22073 09/03/2017 ASSAY TRIIODOTHYRONINE (T3) CPT-4: 53489 09/03/2017 ROUTINE VENIPUNCTURE CPT-4: 96215 07/31/2017 COMPREHEN METABOLIC PANEL CPT-4: 35891 07/31/2017 COMPLETE CBC W/AUTO DIFF WBC CPT-4: 28398 07/31/2017 LIPID PANEL CPT-4: 06581 07/31/2017 FLU VACC PRSV FREE INC ANTIG 65 AND OLDER CPT-4: 22533 07/04/2017 ADMIN INFLUENZA VIRUS VAC CPT-4: G0008 07/04/2017 ROUTINE VENIPUNCTURE CPT-4: 75798 02/26/2017 ASSAY THYROID STIM HORMONE CPT-4: 48952 02/26/2017 COMPREHEN METABOLIC PANEL CPT-4: 39799 02/26/2017 COMPLETE CBC W/AUTO DIFF WBC CPT-4: 32637 02/26/2017 LIPID PANEL CPT-4: 20452 02/26/2017 ASSAY OF PSA TOTAL CPT-4: 15394 02/26/2017 FLUZONE, 5ML (Medicare) CPT-4: Q2038 06/28/2016 ADMIN INFLUENZA VIRUS VAC CPT-4: G0008 06/28/2016 ROUTINE VENIPUNCTURE CPT-4: 98580 05/19/2016 ASSAY OF FREE THYROXINE CPT-4: 68484 05/19/2016 ASSAY THYROID STIM HORMONE CPT-4: 66047 05/19/2016 COMPREHEN METABOLIC PANEL CPT-4: 43338 05/19/2016 COMPLETE CBC W/AUTO DIFF WBC CPT-4: 75997 05/19/2016 LIPID PANEL CPT-4: 92139 05/19/2016 VITAMIN B-12 CPT-4: 60402 05/19/2016 PPPS, initial visit CPT-4: G0438 05/10/2016 ROUTINE VENIPUNCTURE CPT-4: 59804 04/05/2015 ASSAY THYROID STIM HORMONE CPT-4: 57554 04/05/2015 COMPREHEN METABOLIC PANEL CPT-4: 20077 04/05/2015 COMPLETE CBC W/AUTO DIFF WBC CPT-4: 60401 04/05/2015 LIPID PANEL CPT-4: 87642 04/05/2015 ASSAY OF PSA TOTAL CPT-4: 22912 04/05/2015 ROUTINE VENIPUNCTURE CPT-4: 68085 07/19/2012 COMPREHEN METABOLIC PANEL CPT-4: 51337 07/19/2012 LIPID PANEL CPT-4: 55009 07/19/2012 ELECTROCARDIOGRAM COMPLETE CPT-4: 03607 03/22/2012 Vital Signs Date Vital 09/24/2019 Blood Pressure 1: 125/72 Code: 8480-6 BMI: 19.8 Code: 13570-3 Heart Rate 1: 88 bpm Height: 5'11" [...] 1: 102/60 Code: 8480-6 BMI: 19.1 Code: 31571-8 Heart Rate 1: 82 bpm Height: 5'11" Respiratory Rate: 22 bpm SpO2: 97% Tempera ture: 36.4 (C) / 97.6 (F) Weight: 137 lbs 04/25/2018 Blood Pressure 1: 118/64 Code: 8480-6 BMI: 19.2 Code: 35911-3 Heart Rate 1: 98 bpm Height: 5'11" Respiratory Rate: 20 bpm SpO2: 99% Tempera ture: 36.4 (C) / 97.6 (F) Weight: 138 lbs 11/06/2017 Blood Pressure 1: 108/68 Code: 8480-6 BMI: 18.5 Code: 57386-8 Heart Rate 1: 68 bpm Height: 5'11" Respiratory Rate: 20 bpm SpO2: 96% Tempera ture: 36.8 (C) / 98.2 (F) Weight: 133 lbs 09/03/2017 Blood Pressure 1: 122/64 Code: 8480-6 BMI: 17.6 Code: 35035-5 Heart Rate 1: 90 bpm Height: 5'11" Respiratory Rate: 20 bpm SpO2: 98% Tempera ture: 36.4 (C) / 97.6 (F) Weight: 126 lbs 08/21/2017 Blood Pressure 1: 114/80 Code: 8480-6 BMI: 17.9 Code: 09070-6 Heart Rate 1: 80 bpm Height: 5'11" Respiratory Rate: 20 bpm SpO2: 95% Tempera ture: 36.6 (C) / 97.9 (F) Weight: 128 lbs 02/13/2017 Blood Pressure 1: 122/60 Code: 8480-6 BMI: 18.5 Code: 73395-1 Heart Rate 1: 76 bpm Height: 5'11" Respiratory Rate: 20 bpm SpO2: 96% Tempera ture: 36.9 (C) / 98.4 (F) Weight: 133 lbs 11/23/2016 Blood Pressure 1: 126/70 Code: 8480-6 BMI: 18.5 Code: 48895-0 Heart Rate 1: 100 bpm Height: 5'11" Respiratory Rate: 20 bpm SpO2: 96% Tempera ture: 37.1 (C) / 98.8 (F) Weight: 133 lbs 05/23/2016 Blood Pressure 1: 128/82 Code: 8480-6 BMI: 18.5 Code: 34829-1 Heart Rate 1: 88 bpm Height: 5'11" Respiratory Rate: 20 bpm Temperature: 36 .7 (C) / 98.0 (F) Weight: 133 lbs 05/10/2016 Blood Pressure 1: 146/70 Code: 8480-6 BMI: 18.5 Code: 58125-4 Heart Rate 1: 84 bpm Height: 5'11" Respiratory Rate: 20 bpm Temperature: 36 .7 (C) / 98.1 (F) Weight: 133 lbs 04/01/2015 Blood Pressure 1: 102/60 Code: 8480-6 BMI: 18.5 Code: 45107-7 Heart Rate 1: 64 bpm Height: 5'11" Respiratory Rate: 20 bpm Temperature: 36 .8 (C) / 98.2 (F) Weight: 133 lbs 01/13/2014 Blood Pressure 1: 124/78 Code: 8480-6 BMI: 19.8 Code: 83789-6 Heart Rate 1: 76 bpm Height: 5'11" Respiratory Rate: 20 bpm Temperature: 36 .8 (C) / 98.2 (F) Weight: 142 lbs 04/03/2012 Blood Pressure 1: 106/76 Code: 8480-6 BMI: 20.9 Code: 91164-7 Heart Rate 1: 84 bpm Height: 5'11" Respiratory Rate: 20 bpm Temperature: 36 .7 (C) / 98.0 (F) Weight: 150 lbs 12/20/2011 Blood Pressure 1: 116/60 Code: 8480-6 BMI: 20.1 Code: 96223-5 Heart Rate 1: 80 bpm Height: 5'11" Respiratory Rate: 20 bpm Temperature: 36 .4 (C) / 97.6 (F) Weight: 144 lbs 10/24/2011 Blood Pressure 1: 132/74 Code: 8480-6 BMI: 19.7 Code: 82529-4 Heart Rate 1: 96 bpm Height: 5'11" [...] 04/05/2015 follow up 04/01/2015 follow up 01/13/2014 [facility] from Justin Palacio'justin in November 2012 lab draw 07/19/2012 follow up 04/03/2012 S/P stent placement in LAD, changed effient to plavix hip pain 12/20/2011 dyskinesia or tremor 10/24/2011 follow up 03/13/2011 started on effient, zocor, and atenolol follow up 02/20/2011 [facility]/Dr Christian rojas follow up 02/23/2010 [facility], appt with Dr Bajwa 03/22/10 insomnia 01/12/2010 problems falling and staying asleep, takes nortriptyline Encounters Encounter Performer Location Codes Date ([id number]) OFFICE/OUTPATIENT VISIT EST Diagnosis: Essential tremor[ICD10: G25.0] Vonnie Mathews [facility] CPT-4: 68722 12/24/2019 ([id number]) NURSE/OUTPATIENT VISIT EST Diagnosis: Essential (primary) hypertension[ICD10: I10] Diagnosis: Mixed hyperlipidemia[ICD10: E78.2] Diagnosis: Encounter for screening for malignant neoplasm of prostate[ICD10: Z12.5] Vonnie MATHEWS [facility] CPT-4: 68029 09/30/2019 ([id number]) OFFICE/OUTPATIENT VISIT EST Diagnosis: Encounter for therapeutic drug level monitoring[ICD10: Z51.81] Diagnosis: Essential tremor[ICD10: G25.0] Verna MATHEWS DO [facility] CPT-4: 16306 09/24/2019 ([id number]) OFFICE/OUTPATIENT VISIT EST Diagnosis: Noninfective gastroenteritis and colitis, unspecified[ICD10: K52.9] Diagnosis: Hemorrhage of anus and rectum[ICD10: K62.5] Vonnie MATHEWS [facility] CPT-4: 96361 05/26/2019 ([id number]) OFFICE/OUTPATIENT VISIT EST Diagnosis: Other intervertebral disc degeneration, 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] Diagnosis: Other forms of dyspnea[ICD10: R06.09] Vonnie MATHEWS [facility] CPT-4: 33057 03/17/2019 OFFICE/OUTPATIENT VISIT EST Diagnosis: Other intervertebral disc degeneration, 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] Diagnosis: Other symptoms and signs involving the musculoskeletal system[ICD10: R29.898] Vonnie MATHEWS [facility] CPT-4: 90161 02/18/2019 ([id number]) OFFICE/OUTPATIENT VISIT EST Diagnosis: Other allergic rhinitis[ICD10: J30.89] Akilah ALBERTO HUBERT MATHEWS Stand In [facility] CPT-4: 38220 01/13/2019 ([id number]) NURSE/OUTPATIENT VISIT EST Diagnosis: Mixed hyperlipidemia[ICD10: E78.2] Diagnosis: Essential (primary) hypertension[ICD10: I10] Diagnosis: Encounter for screening for malignant neoplasm of prostate[ICD10: Z12.5] Diagnosis: Encounter for general adult medical examination with abnormal findings[ICD10: Z00.01] Diagnosis: Benign prostatic hyperplasia without lower urinary tract symptoms[ICD10: N40.0] Vonnie MATHEWS DO [facility] CPT-4: 42198 09/04/2018 ([id number]) OFFICE/OUTPATIENT VISIT EST Diagnosis: Otorrhea, left ear[ICD10: H92.12] Diagnosis: Impacted cerumen, right ear[ICD10: H61.21] Verna MATHEWS DO [facility] CPT-4: 15543 09/03/2018 ([id number]) OFFICE/OUTPATIENT VISIT EST Diagnosis: Other intervertebral disc degeneration, 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] Diagnosis: Primary insomnia[ICD10: F51.01] Diagnosis: Essential tremor[ICD10: G25.0] Vonnie MATHEWS [facility] CPT-4: 12425 08/26/2018 ([id number]) OFFICE/OUTPATIENT VISIT EST Diagnosis: Pelvic and perineal pain[ICD10: R10.2] Verna MATHEWS [facility] CPT-4: 42765 05/15/2018 ([id number]) OFFICE/OUTPATIENT VISIT EST Diagnosis: Encounter for therapeutic drug level monitoring[ICD10: Z51.81] Diagnosis: Acute sinusitis, unspecified[ICD10: J01.90] Diagnosis: Other intervertebral disc degeneration, 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] Diagnosis: Essential tremor[ICD10: G25.0] Diagnosis: Raynaud's syndrome without gangrene[ICD10: I73.00] Verna MATHEWS DO [facility] CPT-4: 40112 04/25/2018 ([id number]) OFFICE/OUTPATIENT VISIT EST Diagnosis: Idiopathic urticaria[ICD10: L50.1] Diagnosis: Other urticaria[ICD10: L50.8] Vonnie MATHEWS [facility] CPT-4: 94703 11/16/2017 ([id number]) OFFICE/OUTPATIENT VISIT EST Diagnosis: Idiopathic urticaria[ICD10: L50.1] Diagnosis: Other urticaria[ICD10: L50.8] Diagnosis: Other forms of dyspnea[ICD10: R06.09] Vonnie BREWERNE Denia MATHEWS [facility] CPT-4: 87474 11/06/2017 ([id number]) OFFICE/OUTPATIENT VISIT EST Diagnosis: Dyspnea, unspecified[ICD10: R06.00] Diagnosis: Abnormal weight loss[ICD10: R63.4] Vonnie DOUGLASS REA MATHEWS Stand In [facility] CPT-4: 45662 09/03/2017 ([id number]) OFFICE/OUTPATIENT VISIT EST 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] Diagnosis: Mixed hyperlipidemia[ICD10: E78.2] Diagnosis: Essential tremor[ICD10: G25.0] Diagnosis: Essential (primary) hypertension[ICD10: I10] Diagnosis: Abnormal weight loss[ICD10: R63.4] Vonnie DOUGLASS REA BOWMAN Stand In [facility] CPT-4: 26240 08/21/2017 ([id number]) OFFICE/OUTPATIENT VISIT EST Diagnosis: Mixed hyperlipidemia[ICD10: E78.2] Diagnosis: Essential (primary) hypertension[ICD10: I10] 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] Diagnosis: Anemia, unspecified[ICD10: D64.9] Vonnie Galarza Denia BOWMAN Stand In [facility] CPT-4: 95163 07/31/2017 ([id number]) OFFICE/OUTPATIENT VISIT EST Diagnosis: FLU VACCINE[ICD10: Z23] Vonnie COLMENARES Denia BOWMAN Stand In [facility] CPT-4: 92650 07/04/2017 ([id number]) OFFICE/OUTPATIENT VISIT EST Diagnosis: Mixed hyperlipidemia[ICD10: E78.2] Diagnosis: Essential tremor[ICD10: G25.0] 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] Diagnosis: Essential (primary) hypertension[ICD10: I10] Diagnosis: Supraventricular tachycardia[ICD10: I47.1] Diagnosis: Other fatigue[ICD10: R53.83] Diagnosis: Encounter for screening for malignant neoplasm of prostate[ICD10: Z12.5] Vonnie COLMENARES Denia BOWMAN Stand In [facility] CPT-4: 68835 02/26/2017 ([id number]) OFFICE/OUTPATIENT VISIT EST Diagnosis: Essential tremor[ICD10: G25.0] Vonnie MATHEWS DO [facility] CPT-4: 78290 02/13/2017 ([id number]) OFFICE/OUTPATIENT VISIT EST Diagnosis: Essential tremor[ICD10: G25.0] Diagnosis: Other intervertebral disc degeneration, 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] Vonnie MATHEWS DO [facility] CPT-4: 98420 11/23/2016 ([id number]) OFFICE/OUTPATIENT VISIT EST Diagnosis: FLU VACCINE[ICD10: Z23] Vonnie GERMAN DO [facility] CPT-4: 70541 06/28/2016 OFFICE/OUTPATIENT VISIT EST Diagnosis: Open bite of right hand, initial encounter[ICD10: S61.451A] Vonnie MATHEWS DO [facility] CPT-4: 80893 05/23/2016 ([id number]) OFFICE/OUTPATIENT VISIT EST Diagnosis: Encounter for general adult medical examination with abnormal findings[ICD10: Z00.01] Diagnosis: Mixed hyperlipidemia[ICD10: E78.2] Diagnosis: Essential tremor[ICD10: G25.0] 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] Vonnie MATHEWS DO [facility] CPT-4: 89648 05/19/2016 ([id number]) OFFICE/OUTPATIENT VISIT EST Diagnosis: HYPERLIPIDEMIA NEC/NOS[ICD9: 272.4] Diagnosis: CAD[ICD9: 414.00] Diagnosis: TACHYCARDIA[ICD9: 785.0] Diagnosis: HYPERTENSION[ICD9: 401.9] Diagnosis: Routine medical exam[ICD9: V70.0] Vonnie MATHEWS DO [facility] CPT-4: 81817 04/05/2015 ([id number]) OFFICE/OUTPATIENT VISIT EST Diagnosis: HYPERTENSION[ICD9: 401.9] Diagnosis: HYPERLIPIDEMIA NEC/NOS[ICD9: 272.4] Diagnosis: CAD[ICD9: 414.00] Diagnosis: LUMB/LUMBOSAC DISC DEGEN[ICD9: 722.52] Vonnie Bowmanranjan DOLLY GASPAR Denia MATHEWS [facility] CPT-4: 59453 04/01/2015 ([id number]) OFFICE/OUTPATIENT VISIT EST Diagnosis: CHEST PAIN NOS[ICD9: 786.50] Diagnosis: PAIN IN THORACIC SPINE[ICD9: 724.1] Diagnosis: HYPERTENSION[ICD9: 401.9] Diagnosis: GERD[ICD9: 530.81] Vonnie ASCENCIOLINE JustinKim ROMULONDER [facility] CPT-4: 09931 01/13/2014 ([id number]) OFFICE/OUTPATIENT VISIT EST Diagnosis: CAD[ICD9: 414.00] Diagnosis: HYPERLIPIDEMIA NEC/NOS[ICD9: 272.4] Vonnie LAIBESSY ANNA SKim ROMULONDER [facility] CPT-4: 28766 07/19/2012 ([id number]) OFFICE/OUTPATIENT VISIT EST Diagnosis: CAD[ICD9: 414.00] Diagnosis: INSOMNIA NOS[ICD9: 780.52] Vonnie Romuloalyssaranjan VONNIE Loza DANAY YULISA [facility] CPT-4: 85238 04/03/2012 ([id number]) OFFICE/OUTPATIENT VISIT EST Diagnosis: CHEST PAIN NOS[ICD9: 786.50] Diagnosis: CAD[ICD9: 414.00] Vonnie LAIQUELINE JustinKim ROMULONDER [facility] CPT-4: 41955 03/22/2012 ([id number]) OFFICE/OUTPATIENT VISIT EST Diagnosis: PROSTATITIS[ICD9: 601.9] Diagnosis: TREMOR NEC[ICD9: 333.1] Vonnie Mathews VONNIE JustinKim ROMULOND ER [facility] CPT-4: 69290 12/20/2011 OFFICE/OUTPATIENT VISIT EST Diagnosis: TREMOR NEC[ICD9: 333.1] Diagnosis: TACHYCARDIA[ICD9: 785.0] Diagnosis: HYPERTENSION[ICD9: 401.9] Vonnie Romulojuan miguel COLMENARES JustinKim ROMULO NDER DO [facility] CPT-4: 98567 10/24/2011 OFFICE/OUTPATIENT VISIT EST Vonnie Romuloalyssaranjan VONNIE JustinKim ROMULO NDER [facility] CPT- 4: 70407 03/13/2011 ([id number]) OFFICE/OUTPATIENT VISIT EST Vonnie Romuloalyssaranjan DOLLY GASPAR SKim ROMULONDER [facility] CPT-4: 60305 02/20/2011 ([id number]) OFFICE/OUTPATIENT VISIT, GINETTE MATHEWS DO [place] CPT-4: 01805 02/23/2010 ([id number]) OFFICE/OUTPATIENT VISIT, EST Vonnie MATHEWS DO [place] CPT-4: 71144 01/12/2010 Plan of Care Planned Activity Notes Codes Status Date Visit Diagnosis Plan: Essential tremor Discussion: Sta ble on clonazepam Fwup in 3mos with fasting lab ICD-9 : 333.1 ICD-10 : G25.0 12/24/2019 Patient Education: [employer] HFA- [employer] Coupon 96705 0530 [email or web address] Completed 12/24/2019 Appointment: Vonnie Mathews WPtel: [phone] [address] [place] LAB 09/30/2019 Appointment: Verna Ramirez [facility] EDITD [address] RESCHEDULED 09/25/2019 Visit Diagnosis Plan: Essential tremor Discussion: sta ble on clonazepam. educated patient about purchasing a large, heavy pen that will allow him to improve his writing. instructed him that pens can be purchased on [employer]. ICD-9 : 333.1 ICD-10 : G25.0 09/24/2019 Visit Diagnosis Plan: Encounter for therapeutic drug l evel monitoring Discussion: UDS and contract completed today. ICD-9 : V58.83 ICD-10 : Z51.81 09/24/2019 Appointment: Verna Ramirez [address] [id number] MEDICATION REVIEW 09/24/2019 Visit Diagnosis Plan: Hemorrhage of anus and rectum Di scussion: Update colonoscopy ICD-9 : 569.3 ICD-10 : K62.5 05/26/2019 Visit Diagnosis Plan: Noninfective gastroenteritis and colitis, unspecified Discussion: Flagyl [place] diet Update colonoscopy ICD-9 : 558.9 ICD-10 : K52.9 05/26/2019 Appointment: Vonnie Mathews WPtel: [phone] [id number] [place] record request faxed 05/23; ANGELINA with medical records 05/26/19 Hospital Follow Up 05/26/2019 Care Plan: Referral Order SNOMED-CT : 30 [id number] Pending 05/26/2019 Visit Diagnosis Plan: Other intervertebral disc degene ration, lumbar region Discussion: Increase lyrica to 150mg po q HS Continue stretches from PT [facility] Fwup after that appointment ICD-9 : 722.52 ICD-10 : M51.36 03/17/2019 Appointment: Vonnie Mathews WPtel: [address] [place], [place] [phone] US FOLLOW UP 03/17/2019 Visit Diagnosis Plan: Other intervertebral disc degene ration, lumbar region Discussion: Start PT Referral for epidural Will start lyrica 75mg po q HS once CT scan results obtained [facility] Follow Up: 3 weeks ICD-9 : 722.52 [...] : R29.898 02/18/2019 Appointment: Vonnie Mathews WPtel: [address] [place], [place] [phone] US FOLLOW UP 02/18/2019 Appointment: Vonnie Mathews WPtel: [address] [place], [place] [phone] US CANCELED 02/18/2019 Visit Diagnosis Plan: Other [...] : J30.89 01/13/2019 Appointment: Akilah Lopez [facility] Mayra [id number] US Due for annual wellness ACUTE ILLNESS 01/14/20 Appointment: Vonnie Mathews WPtel: [address] [place] [address] US LAB 09/04/2018 Visit Diagnosis Plan: Impacted [...] ICD-10 : H92.12 09/03/2018 Appointment: Verna Ramirez [address] [place] [address] ACUTE ILLNESS 09/03/2018 Visit Diagnosis Plan: Essential [...] : M51.36 08/26/2018 Appointment: Vonnie Mathews WPtel: [facility] [address] FOLLOW UP 08/26/2018 Visit Diagnosis Plan: [...] : R10.2 05/15/2018 Appointment: Verna Ramirez [address] [facility] ACUTE ILLNESS 05/15/2018 Patient Education: Patient Medication Summary Completed 05/15/2018 Care Plan: US EXAM PELVIC COMPLETE scrotal LOINC : 51133-4 Pending 05/15/2018 Visit Diagnosis Plan: Other intervertebral [...] : J01.90 04/25/2018 [facility] [facility] REVIEW 04/25/2018 Patient Education: Patient Medication Summary Completed 04/25/2018 Appointment: Vonnie Mathews WPtel: [phone] [id number] 11/16/2017 Patient Education: Patient Medication Summary Completed [...] : L50.1 11/06/2017 Appointment: Vonnie Mathews WPtel: [address] [place] [address] FOLLOW UP 11/06/2017 Patient Education: Patient Medication [...] : R06.00 09/03/2017 Appointment: Vonnie Mathews WPtel: [address] [place] [address] FOLLOW UP 09/03/2017 Patient Education: Patient Medication Summary Completed 09/03/2017 Visit Diagnosis Plan: Essential tremor Discussion: Sta ble on Primidone ICD-9 : 333.1 ICD-10 : G25.0 08/21/2017 Visit Diagnosis Plan: Atherosclerotic he art disease of [place] coronary artery without angina pectoris Discussion: Sees [...] : E78.2 08/21/2017 Appointment: Vonnie Mathews WPtel: [address] [place], [place] [address] US FOLLOW UP 08/21/2017 Patient Education: Patient Medication Summary Completed 08/21/2017 Appointment: Vonnie Mathews WPtel: [address] [place], [place] [phone] US LAB 07/31/2017 Patient Education: Patient Medication Summary Completed 07/31/2017 Appointment: Vonnie Mathews WPtel: [address] [place] [address] US INJECTION 07/04/2017 Patient Education: Patient Medication Summary Completed 07/04/2017 Appointment: Vonnie Mathews WPtel: [address] [place] [address] US LAB 02/26/2017 Patient Education: Patient Medication Summary Completed 02/26/2017 Visit Diagnosis Plan: Essential tremor Discussion: Con tinue clonazepam at 1mg q AM and primidone 50mg q HS Follow Up: 3 months ICD-9 : 333.1 ICD-10 : G25.0 02/13/2017 Appointment: Vonnie Mathews WPtel: [address] [place], [place] [phone] 02/08 confirmed~sl FOLLOW UP 02/13/2017 Patient Education: Patient Medication Summary Completed 02/13/2017 Appointment: Vonnie Mathews WPtel: [address] [place], [place] [phone] US RESCHEDULED 01/23/2017 Visit Diagnosis Plan: Other intervertebral disc degene ration, lumbar region Discussion: DC oxycodone Tramadol 50mg 1-2 po TID prn pain Follow Up: 2 months ICD-9 : 722.52 ICD-10 : M51.36 11/23/2016 Visit Diagnosis Plan: Essential tremor Discussion: Inc rease clonazepam to 1mg po BID Discussed sinemet ICD-9 : 333.1 ICD-10 : G25.0 11/23/2016 Appointment: Vonnie Mathews WPtel: [address] [place], [place] [phone] 11/22 confirmed~sl MEDICATION REVIEW 11/23/2016 Patient Education: Patient Medication Summary Completed 11/23/2016 Patient Education: [facility] [employer] - Clonazepam - 18-64 - Dynamic Portal ID Completed 11/23/2016 Appointment: Vonnie Mathews WPtel: [address] [place], [place] [phone] US INJECTION 06/28/2016 Patient Education: Patient Medication Summary Completed 06/28/2016 Referral: Fernando Day WPtel: #1 [facility] Shilpa Lopez [id number] [place] [id number] per Maribeth, the patient is [...] if worsening 05/23/2016 Appointment: Vonnie Mathews WPtel: [address] [place], [place] [phone] ER Follow UP 05/23/2016 Patient Education: Patient Medication Summary Completed 05/23/2016 Appointment: Vonnie Mathews WPtel: [address] [place], [place] [phone] LAB 05/19/2016 Patient Education: Patient Medication Summary Completed 05/19/2016 Visit Plan: Change coreg to 3.125mg BID Trial of low dose clonazepam 0.5mg BID for tremors Fwup with Dr. Ramsey as scheduled Return for fasting lab--CBC, CMP, TSH, free T4, Lipids, PSA, B12 Proceed with Colonoscopy 05/10/2016 Appointment: Vonnie Mathews WPtel: [address] [place], [place] [phone] 05/09 confirmed~sl Annual Well Visit 05/10/2016 Patient Education: Patient Medication Summary Completed 05/10/2016 Care Plan: Referral Order SNOMED-CT : 30 [id number] Pending 05/10/2016 Appointment: Vonnie Mathews WPtel: [address] [place] [address] [place] Rescheduled for 05/10/16 at 2PM~lb RESCHEDULED 04/26/2016 Referral: Danilo Ramsey WPtel: [phone] [id number] US Referral Initiated 04/29/2015 Appointment: Vonnie Mathews WPtel: [address] [place] [address] US LAB 04/05/2015 Patient Education: Patient Medication Summary Completed 04/05/2015 Visit Plan: Return in AM for fasting lab --CMP, lipids, CBC, TSH, PSA Change hydrocodone to oxycodone 7.5/325mg 1-2 po TID Schedule with cardiology Needs colonoscopy once cardiology evaluation complete Will need to restart chol meds after lab Recheck 1mo on pain meds 04/01/2015 Appointment: Vonnie Mathews WPtel: [address] [place], [place] [phone] 03/31 confirmed -mf PHYSICAL 04/01/2015 Patient Education: Patient Medication Summary Completed 04/01/2015 Appointment: Vonnie Mathews WPtel: [address] [place], [place] [phone] Annual Well Visit 09/23/2014 Visit Plan: Continue protonix Pt has fwu p with Card next month Rec chiropracter or PT for ribs/thoracics being out and could be contributing to chest pain 01/13/2014 Appointment: Vonnie Mathews WPtel: [address] [place], [place] [phone] FOLLOW UP 01/13/2014 Patient Education: Patient Medication Summary Completed 01/13/2014 Appointment: Ariella Mcnallyl: [phone] [id number] US FOLLOW UP 12/12/2013 Appointment: Malika Cárdenas WPtel: [phone] [id number] US PHYSICAL 12/12/2013 Appointment: Vonnie Mathews WPtel: [phone] [place] [address] ACUTE ILLNESS 02/20/2013 Appointment: Vonnie Mathews WPtel: [phone] [place], [place] [phone] [place] LAB 07/19/2012 Patient Education: Patient Medication Summary Completed 07/19/2012 Appointment: Vonnie Mathews WPtel: [phone] [place] [address] FOLLOW UP 04/03/2012 Patient Education: Patient Medication Summary Completed 04/03/2012 Appointment: Vonnie Mathews WPtel: [phone] [place] [address] ACUTE ILLNESS 03/22/2012 Patient Education: Patient Medication Summary Completed 03/22/2012 Appointment: Vonnie Mathews WPtel: [address] [place], [place] [phone] FOLLOW UP 12/26/2011 Visit Plan: Add Cipro Continue current m eds 12/20/2011 Appointment: Vonnie Mathews WPtel: [address] [place], [place] [phone] ACUTE ILLNESS 12/20/2011 Patient Education: Patient Medication Summary Completed 12/20/2011 Visit Plan: Change neurontin to Cymbalta 30mg for 1wk then 60mg QD Add Propranolol for tremor 10/24/2011 Appointment: Vonnie Mathews WPtel: [address] [place], [place] [phone] ACUTE ILLNESS 10/24/2011 Appointment: Vonnie Mathews WPtel: [address] [place], [place] [phone] ACUTE ILLNESS 10/24/2011 Patient Education: Patient Medication Summary Completed 10/24/2011 Visit Plan: Continue current meds and fw up with Card as scheduled 03/13/2011 Appointment: Vonnie Mathews WPtel: [address] [place], [place] [phone] FOLLOW UP 03/13/2011 Patient Education: Patient Medication Summary Completed 03/13/2011 Visit Plan: Will obtain all records and lab from [facility] Discussed will likely need heart cath which pt states that Card did talk to him about in the hospital 02/20/2011 Appointment: Vonnie Mathews WPtel: [address] [place], [place] [id number] ACUTE ILLNESS 02/20/2011 Patient Education: Patient Medication Summary Completed 02/20/2011 Visit Plan: Cont Pepcid and Prilosec See Card for cardiac cath. 02/23/2010 Appointment: Vonnie Mathews WPtel: [address] [place], [place] [phone] [place] FOLLOW UP 02/23/2010 Patient Education: Patient Medication Summary Completed 02/23/2010 Visit Plan: Increase Pamelor to 75mg qhs Increase Hydrocodone to 10/325mg 1-2 po q6 prn 01/12/2010 Appointment: Vonnie Mathews WPtel: [address] [place], [place] [phone] ACUTE ILLNESS 01/12/2010 Patient Education: Patient Medication Summary Completed 01/12/2010 Referral: Iván Pardo WPtel: [facility] [id number] [facility], [id number] Referral Initiated Referral: Fernando Day WPtel: #1 [id number] [place] Referral Completed Referral: Fernando Day WPtel: #1 [id number] [place] Referral Appointment Requested Instructions Comment . [...]
--- OUTSIDE RECORDS SUMMARY | 2020-02-10 08:13 | XMS REPORT | CCD ---
Author Author Nash Mathews D.O. Organization [facility]ONN[facility]HE[facility] DO [facility] Address [address] [place] [address] Phone Care Team Providers Care Tenant Coordinator Name Role Phone Vonnie Mathews D.O., PP Unavailable CCM Unavailable Summary Purpose Interface Exchange Insurance Providers Payer name Policy type / Coverage type Covered constitution party ID Effective Begin Date Effective End Date [employer] MEDICARE Medicare Part B [id number] 2019 Unknown Family History Family History data not found Social History Social History Element Codes Description Effective Dates Marital status Unknown 10/24/[address]: 254233416 Nonsmoker 03/29/2011 Allergies, Adverse Reactions, Alerts Substance [...] R63.4 08/21/2017 Active 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: [...] ProAir HFA 90 mcg/actuation aerosol inhaler RxNorm: 606838 2 Puff(s) Inhalation four times a day as needed 12/24/2019 No Stop Date Active Zyrtec 10 mg capsule RxNorm: 6421507 1 Capsule(s) Oral QD 0 No Stop Date Active clonazepam 1 mg tablet RxNorm: 151699 TAKE 1 TABLET BY MOUTH EV SUSAN MORNING 12/19/2019 01/17/2020 Active clonazepam 1 mg tablet RxNorm: 761874 TAKE 1 TABLET BY MOUTH EV SUSAN MORNING 11/17/2019 12/16/2019 Inactive Tamiflu 75 mg capsule RxNorm: 981528 1 Capsule(s) Oral QD 11/03/2019 11/12/2019 Inactive Tamiflu 75 mg capsule RxNorm: 621501 1 Capsule(s) Oral QD 11/03/2019 11/02/2019 Inactive clonazepam 1 mg tablet RxNorm: 448512 TAKE 1 TABLET BY MOUTH EV SUSAN MORNING 10/16/2019 11/13/2019 Inactive pravastatin 20 mg tablet RxNorm: 422826 1 Tablet(s) Oral QD 020 04/06/2020 Active Singulair 10 mg tablet RxNorm: 741464 TAKE 1 TABLET BY MOUTH EV SUSAN DAY 10/10/2019 12/24/2019 Inactive Lyrica 75 mg capsule RxNorm: 402179 1 Capsule(s) Oral every ht at bedtime 10/09/2019 01/07/2020 Active clonazepam 1 mg tablet RxNorm: 648562 TAKE 1 TABLET BY MOUTH EV SUSAN AM 09/23/2019 10/15/2019 Inactive clonazepam 1 mg tablet RxNorm: 539795 TAKE 1 TABLET BY MOUTH EV SUSAN AM 08/21/2019 09/22/2019 Inactive Singulair 10 mg tablet RxNorm: 461713 TABLET(S) 1 TABLET(S) PO QD 1 10/09/2019 Inactive Flagyl 500 mg tablet RxNorm: 551105 1 Tablet(s) PO TID 05/26/2019 Inactive clonazepam 1 mg tablet RxNorm: 504139 TAKE 1 TABLET BY MOUTH EV SUSAN MORNING 05/23/2019 06/21/2019 Inactive pravastatin 20 mg tablet RxNorm: 591441 1 Tablet(s) PO QD 04/14/2019 10/09/2019 Inactive Needs updated fasting labs Singulair 10 mg tablet RxNorm: 380785 Tablet(s) 1 TABLET(S) PO QD 0 04/14/2019 07/12/2019 Inactive clonazepam 1 mg tablet RxNorm: 186698 1 Tablet(s) PO QAM 02/21/2019 0 05/23/2019 Inactive Bevespi Aerosphere 9 mcg-4.8 mcg HFA aerosol inhaler RxNorm: 8483678 2 Puff(s) INH BID 02/19/2019 12/23/2019 Inactive ProAir HFA 90 mcg/actuation aerosol inhaler RxNorm: 360782 2 Puff(s) INH Q4H as needed 02/19/2019 09/24/2019 Inactive metoprolol tartrate 25 mg tablet RxNorm: 743556 1/2 Tablet(s) PO BI D 02/18/2019 05/18/2019 Inactive pravastatin 20 mg tablet RxNorm: 918364 1 Tablet(s) PO QD Needs updated fasting labs 01/13/2019 04/14/2019 Inactive Needs updated fa sting labs Singulair 10 mg tablet RxNorm: 489157 Tablet(s) 1 TABLET(S) PO QD 0 01/13/2019 04/12/2019 Inactive Plavix 75 mg tablet RxNorm: 868415 Tablet(s) 1 TABLET(S) PO QD 04/201906/20/2019 Inactive [SAVINGS FOR NON-COVERED SHANDA GS -- BIN:632707, PCN: ASPROD1, Group: XXXXX, ID# [id number], Questions: . THIS IS NOT INSURANCE.] Singulair 10 mg tablet RxNorm: 163093 1 TABLET(S) PO QD 10/29/2018 Inactive primidone 50 mg tablet RxNorm: 795925 2 TABLET(S) PO BI D TAKE 2 TABLETS BY MOUTH EVERY NIGHT AT BEDTIME 10/07/2018 01/12/2019 Inactive Patient requests 90 days supply pravastatin 20 mg tablet RxNorm: 073250 1 TABLET(S) PO QD 09/23/2018 01/12/2019 Inactive clonazepam 1 mg tablet RxNorm: 292986 1 Tablet(s) PO QAM 09/19/2018 0 12/17/2018 Inactive primidone 50 mg tablet RxNorm: 712135 TABLET(S) TAKE 2 TABLETS BY MOUTH EVERY NIGHT AT BEDTIME 09/18/2018 01/12/2019 Inactive ciprofloxacin 0.2 % ear drops in a dropperette RxNorm: 70845 6 2 Drop(s) left otic (ear) BID 09/03/2018 09/09/2018 Inactive primidone 50 mg tablet RxNorm: 093318 2 Tablet(s) PO BI D TAKE 2 TABLETS BY MOUTH EVERY NIGHT AT BEDTIME 08/26/2018 10/06/2018 Inactive Ambien 5 mg tablet RxNorm: 884391 TAKE 1 TABLET BY MOUTH EVERY NIGHT AT BEDTIME 08/05/2018 09/03/2018 Inactive Singulair 10 mg tablet RxNorm: 103347 1 TABLET(S) PO QD 07/23/2018 Inactive clonazepam 1 mg tablet RxNorm: 341532 TAKE 1 TABLET BY MOUTH EV SUSAN MORNING 07/23/2018 08/21/2018 Inactive Plavix 75 mg tablet RxNorm: 623155 1 TABLET(S) PO QD 07/04/201812/22 Inactive [SAVINGS FOR NON-COVERED DRUGS -- BIN:00 3585, PCN: ASPROD1, Group: XXXXX, ID# [id number], Questions: . THIS IS NOT INSURANCE.] clonazepam 1 mg tablet RxNorm: 491131 TAKE 1 TABLET BY MOUTH EV SUSAN MORNING 06/25/2018 07/23/2018 Inactive clonazepam 1 mg tablet RxNorm: 316341 TAKE 1 TABLET BY MOUTH EV SUSAN MORNING 05/23/2018 06/21/2018 Inactive primidone 50 mg tablet RxNorm: 582949 Tablet(s) TAKE 2 TABLETS BY MOUTH EVERY NIGHT AT BEDTIME 05/16/2018 08/25/2018 Inactive oxycodone-acetaminophen 7.5 mg-325 mg tablet RxNorm: 1652417 1-2 Tablet(s) PO TID as needed 04/25/2018 05/24/2018 Inactive Singulair 10 mg tablet RxNorm: 380524 1 Tablet(s) PO QD 04/25/2018 Inactive Medrol (Jose) 4 mg tablets in a dose pack RxNorm: 631560 Tablet(s) PO take as directed 04/25/2018 09/02/2018 Inactive clonazepam 1 mg tablet RxNorm: 534717 TAKE 1 TABLET BY MOUTH EV SUSAN MORNING 04/24/2018 05/22/2018 Inactive Plavix 75 mg tablet RxNorm: 074844 1 TABLET(S) PO QD 04/04/201807/02 Inactive [SAVINGS FOR NON-COVERED DRUGS -- BIN:00 3585, PCN: ASPROD1, Group: XXXXX, ID# [id number], Questions: . THIS IS NOT INSURANCE.] pravastatin 20 mg tablet RxNorm: 476909 1 Tablet(s) PO QD 03/21/2018 09/16/2018 Inactive ProAir HFA 90 mcg/actuation aerosol inhaler RxNorm: 745720 2 Puff(s) INH Q4H as needed 03/18/2018 03/17/2018 Inactive tamsulosin 0.4 mg capsule RxNorm: 943054 1 CAPSULE(S) PO QD 018 01/12/2019 Inactive clonazepam 1 mg tablet RxNorm: 958682 1 Tablet(s) PO QAM 02/25/2018 0 04/25/2018 Inactive tamsulosin 0.4 mg capsule RxNorm: 717267 1 Capsule(s) PO QD 018 03/13/2018 Inactive tamsulosin 0.4 mg capsule RxNorm: 890299 1 Capsule(s) PO QD 018 02/03/2018 Inactive tamsulosin 0.4 mg capsule RxNorm: 706709 1 Capsule(s) PO QD 018 02/12/2018 Inactive Ambien 5 mg tablet RxNorm: 041395 Tablet(s) TAKE 1 TAB LET BY MOUTH EVERY NIGHT AT BEDTIME 01/24/2018 08/05/2018 Inactive primidone 50 mg tablet RxNorm: 500027 Tablet(s) TAKE 2 TABLETS BY MOUTH EVERY NIGHT AT BEDTIME 01/18/2018 05/16/2018 Inactive cyclobenzaprine 10 mg tablet RxNorm: 823321 1 Tablet(s) PO TID as needed for muscle spasm 01/11/2018 02/09/2018 Inactive [SAVINGS FOR NON -COVERED DRUGS -- BIN:698123, N: ASPROD1, Group: XXXXX, ID# [id number], Questions: . THIS IS NOT INSURANCE.] clonazepam 1 mg tablet RxNorm: 035353 1 Tablet(s) PO QAM 12/24/2017 0 02/21/2018 Inactive prednisone 20 mg tablet RxNorm: 320731 1 Tablet(s) PO QD 11/06/2017 0 11/10/2017 Inactive EpiPen 2-Jose 0.3 mg/0.3 mL injection, auto-injector RxNorm: 233818 1 Unit Dose IM as needed 11/06/2017 09/24/2019 Inactive ProAir HFA 90 mcg/actuation aerosol inhaler RxNorm: 702795 2 Puff(s) INH Q4H as needed 10/30/2017 03/17/2018 Inactive primidone 50 mg tablet RxNorm: 343649 TAKE 2 TABLETS BY MOUTH EVERY NIGHT AT BEDTIME 10/15/2017 01/17/2018 Inactive Plavix 75 mg tablet RxNorm: 215463 1 Tablet(s) PO QD 10/01/201703/29 Inactive [SAVINGS FOR NON-COVERED DRUGS -- BIN:00 3585, PCN: ASPROD1, Group: XXXXX, ID# [id number], Questions: . THIS IS NOT INSURANCE.] clonazepam 1 mg tablet RxNorm: 858757 1 Tablet(s) PO QAM 09/19/2017 0 12/16/2017 Inactive primidone 50 mg tablet RxNorm: 205547 2 Tablet(s) PO QHS 08/29/2017 0 01/18/2018 Inactive oxycodone-acetaminophen 7.5 mg-325 mg tablet RxNorm: 7160624 1-2 Tablet(s) PO TID as needed 08/22/2017 09/19/2017 Inactive pravastatin 20 mg tablet RxNorm: 815253 1 Tablet(s) PO QD 08/21/2017 03/21/2018 Inactive carvedilol 3.125 mg tablet RxNorm: 382715 1 Tablet(s) P O BID to replace 6.25mg dose 08/21/2017 09/02/2017 Inactive primidone 50 mg tablet RxNorm: 458607 TAKE 2 TABLETS BY MOUTH EVERY NIGHT AT BEDTIME 06/18/2017 08/28/2017 Inactive clonazepam 1 mg tablet RxNorm: 797977 1 Tablet(s) PO QAM 06/04/2017 1 11/02/2016 Inactive Plavix 75 mg tablet RxNorm: 624015 1 Tablet(s) PO QD 04/10/201710/01 Inactive [SAVINGS FOR NON-COVERED DRUGS -- BIN:00 3585, PCN: ASPROD1, Group: XXXXX, ID# [id number], Questions: . THIS IS NOT INSURANCE.] pravastatin 20 mg tablet RxNorm: 514730 1 Tablet(s) PO QD 02/26/2017 08/24/2017 Inactive carvedilol 3.125 mg tablet RxNorm: 262255 1 Tablet(s) P O BID to replace 6.25mg dose 02/26/2017 08/21/2017 Inactive Ultram 50 mg tablet RxNorm: 564934 TAKE 1 TO 2 TABLETS BY MOUTH THREE TIMES DAILY NEEDED FOR PAIN 02/26/2017 03/07/2017 Inactive pravastatin 20 mg tablet RxNorm: 807621 1 Tablet(s) PO QD 02/26/2017 08/21/2017 Inactive carvedilol 3.125 mg tablet RxNorm: 378670 1 Tablet(s) P O BID to replace 6.25mg dose 02/26/2017 08/20/2017 Inactive clonazepam 0.5 mg tablet RxNorm: 369440 1 Tablet(s) PO QAM 02/14/20 17 02/13/2017 Inactive primidone 50 mg tablet RxNorm: 843599 1 Tablet(s) PO QHS 02/13/2017 0 05/01/2017 Inactive clonazepam 1 mg tablet RxNorm: 398265 1 Tablet(s) PO QAM 02/13/2017 0 05/13/2017 Inactive primidone 50 mg tablet RxNorm: 219574 1/2 Tablet(s) PO QD for 7 days then increase to 1 tablet at bedtime 01/09/2017 02/12/2017 Inactive pravastatin 20 mg tablet RxNorm: 651043 Tablet(s) 1 TABLET(S) PO QD 11/29/2016 02/25/2017 Inactive clonazepam 1 mg tablet RxNorm: 128607 1 Tablet(s) PO BID replac es 0.5mg dose 11/23/2016 01/08/2017 Inactive pravastatin 20 mg tablet RxNorm: 265500 1 TABLET(S) PO QD 11/17/2016 11/28/2016 Inactive Ambien 5 mg tablet RxNorm: 301682 TAKE 1 TABLET BY MOUTH EVERY NIGHT AT BEDTIME 11/17/2016 12/14/2016 Inactive clonazepam 0.5 mg tablet RxNorm: 523467 TAKE 1 TABLET BY MOUTH TWICE DAILY 11/17/2016 11/22/2016 Inactive Plavix 75 mg tablet RxNorm: 409629 1 Tablet(s) PO QD 11/06/201604/09 Inactive [SAVINGS FOR NON-COVERED DRUGS -- BIN:00 3585, PCN: ASPROD1, Group: XXXXX, ID# [id number], Questions: . THIS IS NOT INSURANCE.] Plavix 75 mg tablet RxNorm: 572881 1 Tablet(s) PO QD 08/28/201611/05 Inactive [SAVINGS FOR NON-COVERED DRUGS -- BIN:00 3585, PCN: ASPROD1, Group: XXXXX, ID# [id number], Questions: . THIS IS NOT INSURANCE.] Lidoderm 5 % topical patch RxNorm: 0464597 Application T OP 2 patches for 12hrs then off for 12hrs 08/28/2016 08/27/2016 Inactive clonazepam 0.5 mg tablet RxNorm: 534560 1 Tablet(s) PO BID 08/07/20 16 11/22/2016 Inactive pravastatin 20 mg tablet RxNorm: 117435 1 Tablet(s) PO QD 08/07/2016 11/04/2016 Inactive cyclobenzaprine 10 mg tablet RxNorm: 382845 1 Tablet(s) PO TID as needed for muscle spasm 08/07/2016 09/05/2016 Inactive [SAVINGS FOR NON -COVERED DRUGS -- BIN:514016, PCN: ASPROD1, Group: XXXXX, ID# [id number], Questions: . THIS IS NOT INSURANCE.] Plavix 75 mg tablet RxNorm: 314187 1 Tablet(s) PO QD 08/07/201608/27 Inactive [SAVINGS FOR NON-COVERED DRUGS -- BIN: 3585, PCN: ASPROD1, Group: XXXXX, ID# [id number], Questions: . THIS IS NOT INSURANCE.] carvedilol 3.125 mg tablet RxNorm: 715162 1 Tablet(s) P O BID to replace 6.25mg dose 08/07/2016 02/02/2017 Inactive clonazepam 0.5 mg tablet RxNorm: 511126 1 Tablet(s) PO BID 07/04/20 16 08/07/2016 Inactive Plavix 75 mg tablet RxNorm: 733334 1 TABLET(S) PO QD 06/20/201608/06 Inactive [SAVINGS FOR NON-COVERED DRUGS -- BIN: 3585, PCN: ASPROD1, Group: XXXXX, ID# [id number], Questions: . THIS IS NOT INSURANCE.] clonazepam 0.5 mg tablet RxNorm: 764883 1 Tablet(s) PO BID 06/09/20 16 07/03/2016 Inactive pravastatin 20 mg tablet RxNorm: 360383 1 Tablet(s) PO QD 05/23/2016 08/06/2016 Inactive pravastatin 20 mg tablet RxNorm: 692939 1 Tablet(s) PO QD 05/23/2016 05/22/2016 Inactive carvedilol 3.125 mg tablet RxNorm: 014235 1 Tablet(s) P O BID to replace 6.25mg dose 05/10/2016 08/06/2016 Inactive carvedilol 3.125 mg tablet RxNorm: 542063 1 Tablet(s) P O BID to replace 6.25mg dose 05/10/2016 05/09/2016 Inactive clonazepam 0.5 mg tablet RxNorm: 245335 1 Tablet(s) PO BID 05/10/20 16 06/08/2016 Inactive carvedilol 6.25 mg tablet RxNorm: 472944 1 Tablet(s) PO QD 05/10/20 16 05/10/2016 Inactive simvastatin 40 mg tablet RxNorm: 682877 1 TABLET(S) PO QD 04/10/2016 05/09/2016 Inactive Medrol (Jose) 4 mg tablets in a dose pack RxNorm: 036143 Tablet(s) PO As Directed 01/13/2016 05/09/2016 Inactive cyclobenzaprine 10 mg tablet RxNorm: 450269 1 TABLET(S) PO TID NEEDED FOR SPASM 01/11/2016 03/10/2016 Inactive [SAVINGS FOR NON -COVERED DRUGS -- BIN:348523, PCN: ASPROD1, Group: XXXXX, ID# [id number], Questions: . THIS IS NOT INSURANCE.] Plavix 75 mg tablet RxNorm: 423292 1 Tablet(s) PO QD 12/30/201506/19 Inactive [SAVINGS FOR NON-COVERED DRUGS -- BIN: 3585, PCN: ASPROD1, Group: XXXXX, ID# [id number], Questions: . THIS IS NOT INSURANCE.] Ambien 5 mg tablet RxNorm: 256282 TAKE 1 TABLET BY MOUTH EVERY DAY AT BEDTIME 11/15/2015 11/17/2016 Inactive simvastatin 40 mg tablet RxNorm: 113638 1 Tablet(s) PO QD 10/11/2015 01/12/2019 Inactive simvastatin 40 mg tablet RxNorm: 241299 1 Tablet(s) PO QD 10/08/2015 10/10/2015 Inactive Ambien 5 mg tablet RxNorm: 991763 TAKE 1 TABLET BY MOUTH EVERY NIGHT AT BEDTIME 07/27/2015 11/15/2015 Inactive Plavix 75 mg tablet RxNorm: 781451 1 Tablet(s) PO QD 06/28/201512/29 Inactive [SAVINGS FOR NON-COVERED DRUGS -- BIN:00 3585, PCN: ASPROD1, Group: XXXXX, ID# [id number], Questions: . THIS IS NOT INSURANCE.] Coreg 6.25 mg tablet RxNorm: 070147 1 TABLET(S) PO BID 04/19/2015 Inactive [SAVINGS FOR NON-COVERED DRUGS -- BIN:00 3585, PCN: ASPROD1, Group: XXXXX, ID# [id number], Questions: . THIS IS NOT INSURANCE.] simvastatin 40 mg tablet RxNorm: 121542 1 Tablet(s) PO QD 04/05/2015 04/04/2015 Inactive simvastatin 40 mg tablet RxNorm: 232593 1 Tablet(s) PO QD 04/05/2015 10/11/2015 Inactive Plavix 75 mg tablet RxNorm: 930426 1 TABLET(S) PO QD 03/22/201504/20 Inactive [SAVINGS FOR NON-COVERED DRUGS -- BIN:00 3585, PCN: ASPROD1, Group: XXXXX, ID# [id number], Questions: . THIS IS NOT INSURANCE.] Plavix 75 mg tablet RxNorm: 112964 1 Tablet(s) PO QD 03/22/201506/28 Inactive [SAVINGS FOR NON-COVERED DRUGS -- BIN:00 3585, PCN: ASPROD1, Group: XXXXX, ID# [id number], Questions: . THIS IS NOT INSURANCE.] Ambien 5 mg tablet RxNorm: 617358 1 Tablet(s) PO QHS 12/17/201407/28 Inactive [SAVINGS FOR NON-COVERED DRUGS -- BIN:00 3585, PCN: ASPROD1, Group: XXXXX, ID# [id number], Questions: . THIS IS NOT INSURANCE.] Coreg 6.25 mg tablet RxNorm: 505933 1 Tablet(s) PO BID 12/17/2014 Inactive [SAVINGS FOR NON-COVERED DRUGS -- BIN:00 3585, PCN: ASPROD1, Group: XXXXX, ID# [id number], Questions: . THIS IS NOT INSURANCE.] Plavix 75 mg tablet RxNorm: 830071 1 Tablet(s) PO QD 12/17/201403/16 Inactive [SAVINGS FOR NON-COVERED DRUGS -- BIN:00 3585, PCN: ASPROD1, Group: XXXXX, ID# XXXXXXX, Questions: . THIS IS NOT INSURANCE.] cyclobenzaprine 10 mg tablet RxNorm: 410663 1 Tablet(s) PO TID as needed for spasm 12/17/2014 03/16/2015 Inactive [SAVINGS FOR NON -COVERED DRUGS -- BIN:642579, PCN: ASPROD1, Group: XXXXX, ID# XXXXXXX, Questions: . THIS IS NOT INSURANCE.] Coreg 6.25 mg tablet RxNorm: 434236 1 Tablet(s) PO BID 10/21/201409/2014 Inactive [SAVINGS FOR NON-COVERED DRUGS -- BIN:00 3585, PCN: ASPROD1, Group: XXXXX, ID# XXXXXXX, Questions: . THIS IS NOT INSURANCE.] Plavix 75 mg tablet RxNorm: 468042 1 Tablet(s) PO QD 10/21/201412/16 Inactive [SAVINGS FOR NON-COVERED DRUGS -- BIN:00 3585, PCN: ASPROD1, Group: XXXXX, ID# [id number], Questions: . THIS IS NOT INSURANCE.] Plavix 75 mg tablet RxNorm: 151839 1 Tablet(s) PO QD Ne eds routine check up--last seen March 2012 09/21/2014 10/20/2014 Inactive [SAVINGS FOR UNINSURED PATIENTS -- BIN:773654, PCN: ASPROD1, Group: AME08, ID# [id number], Process claim through [employer], for questions: . THIS IS NOT INSURANCE.] Ambien 5 mg tablet RxNorm: 337276 1 Tablet(s) PO QHS 09/21/201412/16 Inactive [SAVINGS FOR UNINSURED PATIENTS -- BIN:0 70614, PCN: ASPROD1, Group: AME08, ID# [id number], Process claim through [employer], for questions: . THIS IS NOT INSURANCE.] Coreg 6.25 mg tablet RxNorm: 373588 1 Tablet(s) PO BID 09/21/201411/2014 Inactive [SAVINGS FOR UNINSURED PATIENTS -- BIN:0 00462, PCN: ASPROD1, Group: AME08, ID# [id number], Process claim through [employer], for questions: . THIS IS NOT INSURANCE.] Plavix 75 mg tablet RxNorm: 303785 1 Tablet(s) PO QD Ne eds routine check up--last seen March 2012 08/04/2014 09/02/2014 Inactive [SAVINGS FOR UNINSURED PATIENTS -- BIN:057509, PCN: ASPROD1, Group: AME08, ID# [id number], Process claim through [employer], for questions: . THIS IS NOT INSURANCE.] Plavix 75 mg tablet RxNorm: 752392 1 Tablet(s) PO QD Ne eds routine check up--last seen March 2012 08/03/2014 08/03/2014 Inactive Protonix 40 mg tablet,delayed release RxNorm: 673663 1 Tablet(s ) PO QD 06/08/2014 02/17/2019 Inactive [SAVINGS FOR UNINSUR ED PATIENTS -- BIN:822959, PCN: ASPROD1, Group: AME08, ID# [id number], Process claim through [employer], for questions: . THIS IS NOT INSURANCE.] hydrocodone 10 mg-acetaminophen 325 mg tablet RxNorm: 961929 1 Tablet(s) PO BID as needed for pain 02/18/2014 03/31/2015 Inactive Coreg 6.25 mg tablet RxNorm: 764907 1 Tablet(s) PO BID 02/02/2014 Inactive Protonix 40 mg granules delayed-release packet RxNorm: 170576 1 Tablet(s) PO QD 01/13/2014 06/08/2014 Inactive Plavix 75 mg tablet RxNorm: 558487 1 Tablet(s) PO QD Ne eds routine check up--last seen March 2012 01/13/2014 08/02/2014 Inactive Plavix 75 mg tablet RxNorm: 808379 1 Tablet(s) PO QD Ne eds routine check up--last seen March 2012 12/09/2013 01/07/2014 Inactive Coreg 6.25 mg tablet RxNorm: 501625 1 Tablet(s) PO BID 12/09/2013 Inactive Cymbalta 60 mg capsule,delayed release RxNorm: 875689 1 Capsule (s) PO QD 10/31/2013 01/12/2014 Inactive Coreg 6.25 mg tablet RxNorm: 922482 1 Tablet(s) PO BID 10/31/2013 Inactive Plavix 75 mg tablet RxNorm: 456011 1 Tablet(s) PO QD Ne eds routine check up--last seen March 2012 10/31/2013 11/29/2013 Inactive Coreg 6.25 mg tablet RxNorm: 507879 1 Tablet(s) PO BID 10/31/2013 Inactive atorvastatin 40 mg tablet RxNorm: 573435 1 Tablet(s) PO QD 10/31/1903/31/2015 Inactive Plavix 75 mg tablet RxNorm: 263588 1 Tablet(s) PO QD Ne eds routine check up--last seen March 2012 09/23/2013 10/30/2013 Inactive cyclobenzaprine 10 mg tablet RxNorm: 093988 1 Tablet(s) PO TID as needed for spasm 09/23/2013 No Stop Date Active cyclobenzaprine 10 mg tablet RxNorm: 623767 1 Tablet(s) PO TID as needed for spasm 07/04/2013 09/22/2013 Inactive atorvastatin 40 mg tablet RxNorm: 882798 1 Tablet(s) PO QD 06/23/20 13 10/30/2013 Inactive atorvastatin 40 mg tablet RxNorm: 198157 1 Tablet(s) PO QD 04/22/20 13 06/22/2013 Inactive Nucynta 50 mg tablet RxNorm: 645003 1-2 Tablet(s) PO Q6H as nee ded for pain 01/01/2013 01/12/2014 Inactive Ambien 5 mg tablet RxNorm: 001536 1 Tablet(s) PO QHS 10/16/201201/13 Inactive Plavix 75 mg tablet RxNorm: 084584 1 Tablet(s) PO QD 09/19/201209/13 Inactive Protonix 40 mg tablet,delayed release RxNorm: 530182 1 Tablet(s ) PO QD 09/19/2012 09/18/2012 Inactive simvastatin 40 mg tablet RxNorm: 525138 1 Tablet(s) PO QD 09/19/2012 02/23/2013 Inactive Protonix 40 mg tablet,delayed release RxNorm: 016678 1 Tablet(s ) PO QD 09/19/2012 09/13/2013 Inactive Ultram 50 mg tablet RxNorm: 915309 1-2 Tablet(s) PO QID as need ed for pain 09/19/2012 02/26/2017 Inactive propranolol 80 mg tablet RxNorm: 005827 1 Tablet(s) PO QHS 09/19/19 13 09/18/2012 Inactive Cymbalta 60 mg capsule,delayed release RxNorm: 694341 1 Capsule (s) PO QD 09/19/2012 09/18/2012 Inactive Cymbalta 60 mg capsule,delayed release RxNorm: 127210 1 Capsule (s) PO QD 09/19/2012 03/17/2013 Inactive propranolol 80 mg tablet RxNorm: 000320 1 Tablet(s) PO QHS 09/19/19 13 02/23/2013 Inactive hydrocodone-acetaminophen 10 mg-325 mg tablet RxNorm: 265157 2 1-2 Tablet(s) PO QID 07/25/2012 02/23/2013 Inactive Ambien 10 mg tablet RxNorm: 968205 1 Tablet(s) PO QHS as needed for sleep 07/10/2012 01/27/2013 Inactive propranolol 80 mg tablet RxNorm: 205378 1 Tablet(s) PO QHS 05/13/20 12 09/18/2012 Inactive hydrocodone-acetaminophen 10 mg-325 mg tablet RxNorm: 194815 2 1-2 Tablet(s) PO QID 05/02/2012 No Stop Date Active Restoril 15 mg Cap RxNorm: 301749 1-2 Capsule(s) PO QHS 05/02/2012 Inactive propranolol 80 mg tablet RxNorm: 370814 1 Tablet(s) PO QHS 05/02/20 12 05/12/2012 Inactive Chantix Starting Month Box 0.5 mg (11)-1 mg (42) Tabs in a Dose Pack RxNorm: 700943 Tablet(s) PO As Directed 04/01/2012 01/27/2013 Inactive simvastatin 40 mg tablet RxNorm: 050202 1 Tablet(s) PO QD 03/28/2012 09/18/2012 Inactive simvastatin 40 mg Tab RxNorm: 356245 1 Tablet(s) PO QD 03/22/201207/2012 Inactive Effient 10 mg Tab RxNorm: 913224 1 Tablet(s) PO QD 03/22/2012 012 Inactive Prilosec 40 mg Capsule, delayed release RxNorm: 594221 1 Capsul e(s) PO QD 03/22/2012 09/18/2012 Inactive Prilosec 40 mg Capsule, delayed release RxNorm: 695505 1 Capsul e(s) PO QD 03/19/2012 03/21/2012 Inactive Cymbalta 60 mg capsule,delayed release RxNorm: 067979 1 Capsule (s) PO QD 03/04/2012 08/30/2012 Inactive hydrocodone-acetaminophen 10 mg-325 mg Tab RxNorm: 9212036 1-2 T ablet(s) PO QID 01/23/2012 No Stop Date Active Cymbalta 60 mg Capsule, delayed release RxNorm: 148652 1 Capsul e(s) PO QD 01/23/2012 03/03/2012 Inactive Cipro 500 mg Tab RxNorm: 844550 1 Tablet(s) PO BID 12/20/2011 012 Inactive Cymbalta 60 mg Capsule, delayed release RxNorm: 302456 1 Capsul e(s) PO QD 12/13/2011 01/22/2012 Inactive nortriptyline 75 mg Cap RxNorm: 894498 1 Capsule(s) PO QHS 11/29/19 12 04/02/2012 Inactive Cymbalta 60 mg Cap RxNorm: 628364 1 Capsule(s) PO QD 10/24/201112/11 Inactive propranolol 80 mg Tab RxNorm: 417215 1 Tablet(s) PO QHS 10/24/2011 Inactive hydrocodone-acetaminophen 10 mg-325 mg Tab RxNorm: 3461589 1-2 T ablet(s) PO QID 09/29/2011 No Stop Date Active hydrocodone-acetaminophen 10 mg-325 mg Tab RxNorm: 6567568 1-2 T ablet(s) PO QID 07/25/2011 No Stop Date Active hydrocodone-acetaminophen 10 mg-325 mg Tab RxNorm: 7347462 1-2 T ablet(s) PO QID 02/14/2011 No Stop Date Active Prilosec 40 mg Cap RxNorm: 099627 1 Capsule(s) PO 01/03/2011 01/13/20 19 Inactive nortriptyline 75 mg Cap RxNorm: 581392 1 Capsule(s) PO QHS 01/04/20 11 07/01/2011 Inactive Neurontin 600 mg Tab RxNorm: 862713 1 Tablet(s) PO QHS 12/08/201011/2011 Inactive hydrocodone-acetaminophen 5 mg-500 mg Tab RxNorm: 863448 2 Tablet(s) PO Q4-6H prn 10/20/2010 01/08/2011 Inactive Diltzac ER 240 mg Cap RxNorm: 412739 1 Capsule(s) PO QD 07/14/2010 Inactive Nortriptyline 75 mg Cap RxNorm: 823031 1 Capsule(s) PO QHS 05/09/20 10 01/12/2019 Inactive Neurontin 600 mg Tab RxNorm: 281462 1 Tablet(s) PO QD 03/17/201012/17 Inactive Nortriptyline 75 mg Cap RxNorm: 292606 1 Capsule(s) PO 01/12/2010 Inactive Nortriptyline 50 mg Cap RxNorm: 977497 1 Capsule(s) PO QHS 01/13/20 10 01/11/2010 Inactive Diltzac ER 240 mg Cap RxNorm: 686615 1 Capsule(s) PO QD 12/06/2009 Inactive aspirin 81 mg Tab RxNorm: 027750 1 Tablet(s) PO QD No Start Date Active Vitamin D3 2,000 unit tablet RxNorm: 828223 1 Tablet(s) PO QD No Star t Date Active fncyqrjev-vetdcgfro-njyeef complex no.233 oral RxNorm: oral No Start Date Active primidone 50 mg tablet RxNorm: 026015 2 Tablet(s) PO BID No Start Date Active Prilosec 40 mg Capsule, delayed release RxNorm: 426534 1 Capsul e(s) PO QD No Start Date 03/18/2012 Inactive Prilosec 20 mg Cap RxNorm: 911707 1 Capsule(s) PO QHS No Start Date 0 01/02/2011 Inactive primidone 50 mg tablet RxNorm: 756684 1/2 Tablet(s) PO QHS for 1week then go full tab if needed No Start Date 05/01/2017 Inactive ProAir HFA 90 mcg/actuation aerosol inhaler RxNorm: 594844 2 Puff(s) INH Q4H as needed No Start Date 10/29/2017 Inactive clonazepam 0.5 mg tablet RxNorm: 348468 1/2 Tablet(s) PO BID No Sta rt Date 02/12/2017 Inactive Pepcid AC 10 mg Tab RxNorm: 930708 1 Tablet(s) PO QAM No Start Date 0 02/19/2011 Inactive Coreg Oral RxNorm: Oral No Start Date 01/12/2014 Inactive primidone 50 mg tablet RxNorm: 332344 1/2 Tablet(s) PO QD for 7 days then increase to 1 tablet at bedtime No Start Date 01/08/2017 Inactive Medrol (Jose) 4 mg tablets in a dose pack RxNorm: 417068 Tablet(s) PO As Directed No Start Date 01/12/2016 Inactive Plavix 75 mg tablet RxNorm: 988685 1 Tablet(s) PO QD No Start Date Inactive cyclobenzaprine 10 mg tablet RxNorm: 498346 1 Tablet(s) PO TID as needed for spasm No Start Date 07/03/2013 Inactive Bevespi Aerosphere 9 mcg-4.8 mcg HFA aerosol inhaler RxNorm: 1993113 2 Puff(s) INH BID No Start Date 02/18/2019 Inactive tramadol 50 mg tablet RxNorm: 597216 1-2 Tablet(s) PO TID as ne eded for pain No Start Date 01/12/2019 Inactive clonazepam 1 mg tablet RxNorm: 261987 1 Tablet(s) PO QAM No Start D ate 09/18/2018 Inactive hydrocodone-acetaminophen 5 mg-500 mg Tab RxNorm: 372265 2 Tablet(s) PO Q4-6H prn No Start Date 10/19/2010 Inactive lisinopril 20 mg Tab RxNorm: 992680 1/2 Tablet(s) PO QD No Start Da te 03/12/2011 Inactive Lyrica 75 mg capsule RxNorm: 536053 1 Capsule(s) PO QHS No Start Da te 10/08/2019 Inactive Protonix 40 mg tablet,delayed release RxNorm: 469509 1 Tablet(s ) PO QD No Start Date 06/07/2014 Inactive Lipitor Oral RxNorm: Oral No Start Date 01/12/2014 Inactive primidone 50 mg tablet RxNorm: 394068 2 Tablet(s) PO QAM and 1 tablet at HS No Start Date 02/17/2019 Inactive hydrocodone-acetaminophen 10 mg-325 mg Tab RxNorm: 1678651 1-2 T ablet(s) PO QID No Start Date 02/13/2011 Inactive Ultram 50 mg tablet RxNorm: 437521 1-2 Tablet(s) PO QID as need ed for pain No Start Date 09/18/2012 Inactive Effient 10 mg Tab RxNorm: 020498 1 Tablet(s) PO QD No Start Date 01/2012 Inactive Bevespi Aerosphere 9 mcg-4.8 mcg HFA aerosol inhaler RxNorm: 2351235 2 Puff(s) INH BID No Start Date 10/29/2017 Inactive Neurontin Oral RxNorm: Oral No Start Date 01/12/2010 Inactive primidone 50 mg tablet RxNorm: 419394 1 Tablet(s) PO QD No Start Da te 01/12/2019 Inactive Chantix Starting Month Box 0.5 mg (11)-1 mg (42) Tabs in a Dose Pack RxNorm: 366690 Tablet(s) PO No Start Date 03/31/2012 Inactive atenolol 25 mg Tab RxNorm: 400934 1 Tablet(s) PO QD No Start Date 02/2012 Inactive Neurontin 600 mg Tab RxNorm: 932692 1 Tablet(s) PO QD No Start Date 0 03/16/2010 Inactive Nucynta 50 mg tablet RxNorm: 242691 1-2 Tablet(s) PO Q6H as nee ded for pain No Start Date 12/31/2012 Inactive simvastatin 40 mg Tab RxNorm: 815844 1 Tablet(s) PO QD No Start Date 03/21/2012 Inactive Medication Administered No Medication Administered data Immunizations Vaccine Codes Date Status Influenza CVX: 135 07/04/2017 Complete Results Observation Observation Code Item Item Code Result Date S [facility] Location COMPLETE BLOOD COUNT [id number] WBC 4.9 10e9/L 09/30/19 20 Unknown COMPLETE BLOOD COUNT [id number] RBC 4.65 10e12/L 2019 Unknown COMPLETE BLOOD COUNT [id number] HEMOGLOBIN 13.8 g/dL 09/30/19 20 Unknown COMPLETE BLOOD COUNT [id number] HEMATOCRIT 42.3 % 09/30/19 20 Unknown COMPLETE BLOOD COUNT [id number] MCV 91.0 fL 0 Unknown COMPLETE BLOOD COUNT [id number] MCH 29.7 pg 0 Unknown COMPLETE BLOOD COUNT [id number] MCHC 32.6 g/dL 0 Unknown COMPLETE BLOOD COUNT [id number] PLATELET COUNT 230 10e9/L Unknown COMPLETE BLOOD COUNT [id number] Mean Plt Volume 9.9 fL Unknown COMPLETE BLOOD COUNT [id number] Neut Auto 52.5 % 0 Unknown COMPLETE BLOOD COUNT [id number] Lymph Auto 30.8 % 09/30/19 20 Unknown COMPLETE BLOOD COUNT [id number] Foard Auto 11.2 % 0 Unknown COMPLETE BLOOD COUNT [id number] RDW 13.5 % 0 Unknown COMPLETE BLOOD COUNT [id number] Eos Auto 5.1 % 0 Unknown COMPLETE BLOOD COUNT 2340907 Baso Auto 0.4 % 0 Unknown COMPLETE BLOOD COUNT [id number] Neutrophil Abs 2.57 10e9/L Unknown COMPLETE BLOOD COUNT [id number] Lymphocyte Abs 1.51 10e9/L Unknown COMPLETE BLOOD COUNT [id number] Monocyte Abs 0.55 10e9/L 09/17 Unknown COMPLETE BLOOD COUNT [id number] Eosinophil Abs 0.25 10e9/L Unknown COMPLETE BLOOD COUNT [id number] RDW-SD 43.9 fL 0 Unknown COMPLETE BLOOD COUNT [id number] Basophil Abs 0.02 10e9/L 09/17 Unknown GFR CALC [id number] GFR Afr Amr >60 mL/min 09/30/2019 Unknow n GFR CALC 1908292 GFR Non Afr Amr >60 mL/min 09/30/2019 Un known THYROID STIMULATING HORMONE 15919 TSH 1.129 uIU/mL 09/30/2019 Unknown PSA EQUIMOLAR BARBIE 75739 PSA Total 0.77 ng/mL 0 Unknown LIPID GROUP 59879 Cholesterol 192 mg/dL 09/30/2019 Unkno wn LIPID GROUP 05818 Triglyceride 86 mg/dL 09/30/2019 Unkn own LIPID GROUP 43997 HDL CHOLESTEROL 64 mg/dL 09/30/2019 U nknown LIPID GROUP 73863 Chol/HDL Ratio 3.00 ratio 09/30/2019 U nknown LIPID GROUP 02364 NON-HDL Chol 128 mg/dL 09/30/2019 Unkn own LIPID GROUP 66955 LDL Cholesterol 111 mg/dL 09/30/2019 U nknown COMPREHENSIVE METABOLIC 80986 AST 17 U/L 2019 Unknown COMPREHENSIVE METABOLIC 05514 ALT 10 U/L 2019 Unknown COMPREHENSIVE METABOLIC 23019 BUN 13 mg/dL 2019 Unknown COMPREHENSIVE METABOLIC 55926 ALBUMIN 4.3 g/dL 2019 Unknown COMPREHENSIVE METABOLIC 78009 CHLORIDE 102 mmol/L 09/30 Unknown COMPREHENSIVE METABOLIC 56506 Bili Total 0.6 mg/dL 09/30 Unknown COMPREHENSIVE METABOLIC 50910 ALK PHOS 91 U/L 2019 Unknown COMPREHENSIVE METABOLIC 40616 SODIUM 138 mmol/L 09/30 Unknown COMPREHENSIVE METABOLIC 53239 CREATININE 1.09 mg/dL 09/17 Unknown COMPREHENSIVE METABOLIC 83982 CALCIUM 9.0 mg/dL 2019 Unknown COMPREHENSIVE METABOLIC 19350 POTASSIUM 4.5 mmol/L 09/30 Unknown COMPREHENSIVE METABOLIC 66170 Total Protein 6.8 g/dL Unknown COMPREHENSIVE METABOLIC 47396 Glucose 91 mg/dL 2019 Unknown COMPREHENSIVE METABOLIC 54380 Bicarbonate 28 mmol/L 09/17 Unknown COMPREHENSIVE METABOLIC 28465 AGAP 8 mmol/L 2019 Unknown COMPLETE BLOOD COUNT [id number] WBC 4.9 10e9/L 09/04/20 18 Unknown COMPLETE BLOOD COUNT [id number] RBC 4.42 10e12/L 2017 Unknown COMPLETE BLOOD COUNT [id number] HEMOGLOBIN 13.4 g/dL 09/04/20 18 Unknown COMPLETE BLOOD COUNT 7254810 HEMATOCRIT 40.5 % 09/04/20 18 Unknown COMPLETE BLOOD COUNT 1226640 MCV 91.6 fL 8 Unknown COMPLETE BLOOD COUNT 2494505 MCH 30.3 pg 8 Unknown COMPLETE BLOOD COUNT 8631843 MCHC 33.1 g/dL 8 Unknown COMPLETE BLOOD COUNT 1515532 PLATELET COUNT 224 10e9/L Unknown COMPLETE BLOOD COUNT 6886660 Mean Plt Volume 9.9 fL Unknown COMPLETE BLOOD COUNT 9446358 Neut Auto 60.8 % 8 Unknown COMPLETE BLOOD COUNT [id number] Lymph Auto 26.8 % 09/04/20 18 Unknown COMPLETE BLOOD COUNT [id number] Foard Auto 10.4 % 8 Unknown COMPLETE BLOOD COUNT 7795870 RDW 12.8 % 8 Unknown COMPLETE BLOOD COUNT 7956390 Eos Auto 1.6 % 8 Unknown COMPLETE BLOOD COUNT 9590872 Baso Auto 0.4 % 8 Unknown COMPLETE BLOOD COUNT [id number] Neutrophil Abs 2.98 10e9/L Unknown COMPLETE BLOOD COUNT 4755397 Lymphocyte Abs 1.31 10e9/L Unknown COMPLETE BLOOD COUNT [id number] Monocyte Abs 0.51 10e9/L 08/17 Unknown COMPLETE BLOOD COUNT 4898395 Eosinophil Abs 0.08 10e9/L Unknown COMPLETE BLOOD COUNT 4788707 RDW-SD 41.6 fL 8 Unknown COMPLETE BLOOD COUNT [id number] Basophil Abs 0.02 10e9/L 08/17 Unknown COMPREHENSIVE METABOLIC 95539 AST 16 U/L 2017 Unknown COMPREHENSIVE METABOLIC 07433 ALT 8 U/L 2017 Unknown COMPREHENSIVE METABOLIC 22912 BUN 12 mg/dL 2017 Unknown COMPREHENSIVE METABOLIC 66209 ALBUMIN 4.4 g/dL 2017 Unknown COMPREHENSIVE METABOLIC 25103 CHLORIDE 107 mmol/L 09/04 Unknown COMPREHENSIVE METABOLIC 83510 Bili Total 1.0 mg/dL 09/04 Unknown COMPREHENSIVE METABOLIC 31824 ALK PHOS 58 U/L 2017 Unknown COMPREHENSIVE METABOLIC 16419 SODIUM 142 mmol/L 09/04 Unknown COMPREHENSIVE METABOLIC 25094 CREATININE 0.97 mg/dL 08/17 Unknown COMPREHENSIVE METABOLIC 11182 CALCIUM 9.2 mg/dL 2017 Unknown COMPREHENSIVE METABOLIC 49480 POTASSIUM 4.6 mmol/L 09/04 Unknown COMPREHENSIVE METABOLIC 47678 Total Protein 6.5 g/dL Unknown COMPREHENSIVE METABOLIC 71896 Glucose 96 mg/dL 2017 Unknown COMPREHENSIVE METABOLIC 66769 Bicarbonate 29 mmol/L 08/17 Unknown COMPREHENSIVE METABOLIC 79291 AGAP 6 mmol/L 2017 Unknown LIPID GROUP 35137 Cholesterol 182 mg/dL 09/04/2018 Unkno wn LIPID GROUP 90294 Triglyceride 84 mg/dL 09/04/2018 Unkn own LIPID GROUP 52567 HDL CHOLESTEROL 76 mg/dL 09/04/2018 U nknown LIPID GROUP 72398 Chol/HDL Ratio 2.39 ratio 09/04/2018 U nknown LIPID GROUP 11487 NON-HDL Chol 106 mg/dL 09/04/2018 Unkn own LIPID GROUP 45186 LDL Cholesterol 89 mg/dL 09/04/2018 U nknown GFR CALC 0765652 GFR Non Afr Amr >60 mL/min 09/04/2018 Un known GFR CALC 3994748 GFR Afr Amr >60 mL/min 09/04/2018 Unknow n THYROID STIMULATING HORMONE 76652 TSH 0.713 uIU/mL 09/04/2018 Unknown PSA EQUIMOLAR BARBIE 39951 PSA Total 0.66 ng/mL 8 Unknown A FOOD C P [id number] [place] Cl Class 0 11/17/2017 Unknown A FOOD C P 8907855 [place] Ct <0.35 kU/L 11/17/2017 Unknow n A FOOD C P [id number] [place] Cl Class 0 11/17/2017 Unkn own A FOOD C P [id number] [place] Ct <0.35 kU/L 11/17/2017 Unk nown A FOOD C P 9152036 Egg White Cl Class 0 11/17/2017 Unkno wn A FOOD C P [id number] Egg White Ct <0.35 kU/L 11/17/2017 Unkn own A FOOD C P 8790965 Egg Yolk Cl Class 0 11/17/2017 Unknow n A FOOD C P 9151595 Egg Yolk Ct <0.35 kU/L 11/17/2017 Unkno wn A FOOD C P 1400593 Cow Milk Cl Class 0 11/17/2017 Unknow n A FOOD C P 6950352 Cow Milk Ct <0.35 kU/L 11/17/2017 Unkno wn A FOOD C P 0768344 Peanut Cl Class 0 11/17/2017 Unknown A FOOD C P [id number] Peanut Ct <0.35 kU/L 11/17/2017 Unknown A FOOD C P 8015293 Shrimp Cl Class 0 11/17/2017 Unknown A FOOD C P [id number] Shrimp Ct <0.35 kU/L 11/17/2017 Unknown A FOOD C P 1962835 Soy[place] Cl Class 0 11/17/2017 Unknown A FOOD C P 4850611 Soy[place] Ct <0.35 kU/L 11/17/2017 Unknow n A FOOD C P 0376078 Wheat Cl Class 0 11/17/2017 Unknown A FOOD C P 2997691 Wheat Ct <0.35 kU/L 11/17/2017 Unknown A FOOD C P 5981187 Potato Cl Class 0 11/17/2017 Unknown A FOOD C P [id number] Potato Ct <0.35 kU/L 11/17/2017 Unknown A FOOD C P 7140797 Beef Cl Class 2 11/17/2017 Unknown A FOOD C P [id number] Beef Ct 0.88 kU/L 11/17/2017 Unknown A FOOD C P 6638155 [place] Cl Class 0 11/17/2017 Unknown A FOOD C P [id number] [place] Ct <0.35 kU/L 11/17/2017 Unknown A FOOD C P 2165213 Pork Cl Class 0 11/17/2017 Unknown A FOOD C P [id number] Pork Ct <0.35 kU/L 11/17/2017 Unknown A FOOD C P [id number] [place] Cl Class 0 11/17/2017 Unknown A FOOD C P 5986507 Rice Ct <0.35 kU/L 11/17/2017 Unknown A FOOD C P 1652007 [place] Cl Class 0 11/17/2017 Unkn own A FOOD C P 8148927 [place] Ct <0.35 kU/L 11/17/2017 Unk nown A FOOD C P 2577451 Tomato Cl Class 0 11/17/2017 Unknown A FOOD C P 4382742 Tomato Ct <0.35 kU/L 11/17/2017 Unknown A FOOD C P [id number] Tuna Cl Class 0 11/17/2017 Unknown A FOOD C P [id number] Tuna Ct <0.35 kU/L 11/17/2017 Unknown A FOOD C P 9369916 Trout CL Class 0 11/17/2017 Unknown A FOOD C P [id number] Trout CT <0.35 kU/L 11/17/2017 Unknown A FOOD C P 4277307 Casein Cl Class 0 11/17/2017 Unknown A FOOD C P 5665543 Casein Ct <0.35 kU/L 11/17/2017 Unknown A FOOD C P 8208163 Oat Cl Class 0 11/17/2017 Unknown A FOOD C P 2388243 Oat Ct <0.35 kU/L 11/17/2017 Unknown A FOOD C P 1047916 [place] Cl Class 0 11/17/2017 Unknown A FOOD C P 3250008 [place] Ct <0.35 kU/L 11/17/2017 Unknown A FOOD C P [id number] Chicken Meat CL Class 0 11/17/2017 Un known A FOOD C P [id number] Chicken Meat Ct <0.35 kU/L 11/17/2017 U nknown A FOOD C P 2045916 [place] Cl Class 0 11/17/2017 Unknown A FOOD C P 7845810 [place] Ct <0.35 kU/L 11/17/2017 Unknown A FOOD C P 3730096 Pecan Meat Cl Class 0 11/17/2017 Unkn own A FOOD C P [id number] Pecan Meat Ct <0.35 kU/L 11/17/2017 Unk nown A NUTS PNL 4521854 Peanut Cl Class 0 11/17/2017 Unknown A NUTS PNL 1843549 Peanut Ct <0.35 kU/L 11/17/2017 Unknown A NUTS PNL 8632202 [place] Meat Cl Class 0 11/17/2017 Unk nown A NUTS PNL 5555131 [place] Ct <0.35 kU/L 11/17/2017 Un known A NUTS PNL 0702463 Pec[place] Meat Cl Class 0 11/17/2017 Unkn own A NUTS PNL 4894624 [place]ec[place] Meat Ct <0.35 kU/L 11/17/2017 Unk nown A NUTS PNL 2498045 [place] Cl Class 0 11/17/2017 Unknown A NUTS PNL 4890336 [place] Ct <0.35 kU/L 11/17/2017 Unknown A NUTS PNL 7301890 [place] Cl Class 0 11/17/2017 Unknow n A NUTS PNL 2611672 [place] Ct <0.35 kU/L 11/17/2017 Unkno wn A NUTS PNL 3889731 [place] Cl Class 0 11/17/2017 Unkno wn A NUTS PNL 7529281 [place] Ct <0.35 kU/L 11/17/2017 Unkn own A NUTS PNL 0412682 [place] Cl Class 0 11/17/2017 Unknown A NUTS PNL 2469843 [place] Ct <0.35 kU/L 11/17/2017 Unknown A NUTS PNL 8508894 [place] Cl Class 0 11/17/2017 Unkno wn A NUTS PNL [id number] [place] Ct <0.35 kU/L 11/17/2017 Unkn own A NUTS PNL 3389854 Allergen Interp See Note 11/17/2017 Un known A FRT/VG P 1259483 [place] Cl Class 0 11/17/2017 Unkn own A FRT/VG P 0953015 [place] Ct <0.35 kU/L 11/17/2017 Unk nown A FRT/VG P [id number] Potato Cl Class 0 11/17/2017 Unknown A FRT/VG P [id number] Potato Ct <0.35 kU/L 11/17/2017 Unknown A FRT/VG P [id number] [place] Cl Class 0 11/17/2017 Unkn own A FRT/VG P [id number] [place] Ct <0.35 kU/L 11/17/2017 Unk nown A FRT/VG P [id number] [place] Cl Class 0 11/17/2017 Unknown A FRT/VG P 5188855 Tomato Ct <0.35 kU/L 11/17/2017 Unknown A FRT/VG P 6454075 [place] Cl Class 0 11/17/2017 Unknown A FRT/VG P [id number] [place] Ct <0.35 kU/L 11/17/2017 Unknown A FRT/VG P 2049928 Ban[place] Cl Class 1 11/17/2017 Unknown A FRT/VG P 8189205 [place] Ct 0.48 kU/L 11/17/2017 Unknown A FRT/VG P 5476071 [place] Fruit Cl Class 0 11/17/2017 Unk nown A FRT/VG P 3369258 [place] Ct <0.35 kU/L 11/17/2017 Un known A FRT/VG P [id number] [place] Fruit Cl Class 0 11/17/2017 Unk nown A FRT/VG P [id number] [place] Ct <0.35 kU/L 11/17/2017 Un known A FRT/VG P [id number] Car[place] Cl Class 0 11/17/2017 Unknown A FRT/VG P [id number] Carrot Ct <0.35 kU/L 11/17/2017 Unknown A FRT/VG P 3145002 Pea Cl Class 0 11/17/2017 Unknown A FRT/VG P 0023469 Pea Ct <0.35 kU/L 11/17/2017 Unknown A FRT/VG P 6255137 Pear Fruit Cl Class 0 11/17/2017 Unkn own A FRT/VG P 5005276 [place] Fruit Ct <0.35 kU/L 11/17/2017 Unk nown A FRT/VG P [id number] Swt Potato Cl Class 0 11/17/2017 Unkn own A FRT/VG P [id number] Swt Potato Ct <0.35 kU/L 11/17/2017 Unk nown THYROID STIMULATING HORMONE 42971 TSH 1.371 uIU/mL 09/03/2017 Unknown FREE T4 78252 T4 Free 1.26 ng/dL 09/03/2017 Unknown ASSAY TRIIODOTHYRONINE (T3) 79291 T3 Total 0.9 ng/mL Unknown COMPLETE BLOOD COUNT [id number] WBC 5.9 10e9/L 07/31/20 17 Unknown COMPLETE BLOOD COUNT 7284578 RBC 4.64 10e12/L 2016 Unknown COMPLETE BLOOD COUNT 2609683 HEMOGLOBIN 14.2 g/dL 07/31/20 17 Unknown COMPLETE BLOOD COUNT 9128142 HEMATOCRIT 42.1 % 07/31/20 17 Unknown COMPLETE BLOOD COUNT 3759858 MCV 90.7 fL 7 Unknown COMPLETE BLOOD COUNT 3837882 MCH 30.6 pg 7 Unknown COMPLETE BLOOD COUNT 8192828 MCHC 33.7 g/dL 7 Unknown COMPLETE BLOOD COUNT 6000664 PLATELET COUNT 195 10e9/L Unknown COMPLETE BLOOD COUNT 0052366 Mean Plt Volume 10.0 fL Unknown COMPLETE BLOOD COUNT 6273319 Neut Auto 47.5 % 7 Unknown COMPLETE BLOOD COUNT 6538715 Lymph Auto 37.4 % 07/31/20 17 Unknown COMPLETE BLOOD COUNT 4633563 [place] Auto 11.7 % 7 Unknown COMPLETE BLOOD COUNT 3988375 RDW 12.8 % 7 Unknown COMPLETE BLOOD COUNT 6349192 Eos Auto 3.2 % 7 Unknown COMPLETE BLOOD COUNT 2372786 Baso Auto 0.2 % 7 Unknown COMPLETE BLOOD COUNT 3148109 Neutrophil Abs 2.80 10e9/L Unknown COMPLETE BLOOD COUNT 9561808 Lymphocyte Abs 2.21 10e9/L Unknown COMPLETE BLOOD COUNT 4402109 Monocyte Abs 0.69 10e9/L 07/18 Unknown COMPLETE BLOOD COUNT 0366030 Eosinophil Abs 0.19 10e9/L Unknown COMPLETE BLOOD COUNT 8401104 Basophil Abs 0.01 10e9/L 07/18 Unknown COMPLETE BLOOD COUNT 0528205 RDW-SD 41.6 fL 7 Unknown LIPID GROUP 84135 Cholesterol 186 mg/dL 07/31/2017 Unkno wn LIPID GROUP 81164 Triglyceride 129 mg/dL 07/31/2017 Unkn own LIPID GROUP 50670 HDL CHOLESTEROL 79 mg/dL 07/31/2017 U nknown LIPID GROUP 64040 Chol/HDL Ratio 2.35 ratio 07/31/2017 U nknown LIPID GROUP 25495 NON-HDL Chol 107 mg/dL 07/31/2017 Unkn own LIPID GROUP 06272 LDL Cholesterol 81 mg/dL 07/31/2017 U nknown GFR CALC 8865774 GFR Non Afr Amr >60 mL/min 07/31/2017 Un known GFR CALC 4324727 GFR Afr Amr >60 mL/min 07/31/2017 Unknow n COMPREHENSIVE METABOLIC 64047 AST 19 U/L 2016 Unknown COMPREHENSIVE METABOLIC 71014 ALT 12 U/L 2016 Unknown COMPREHENSIVE METABOLIC 59775 BUN 15 mg/dL 2016 Unknown COMPREHENSIVE METABOLIC 92392 ALBUMIN 4.4 g/dL 2016 Unknown COMPREHENSIVE METABOLIC 80361 CHLORIDE 102 mmol/L 07/31 Unknown COMPREHENSIVE METABOLIC 47616 Bili Total 0.9 mg/dL 07/31 Unknown COMPREHENSIVE METABOLIC 08855 ALK PHOS 53 U/L 2016 Unknown COMPREHENSIVE METABOLIC 63216 SODIUM 138 mmol/L 07/31 Unknown COMPREHENSIVE METABOLIC 32320 CREATININE 1.06 mg/dL 07/18 Unknown COMPREHENSIVE METABOLIC 40825 CALCIUM 9.3 mg/dL 2016 Unknown COMPREHENSIVE METABOLIC 77628 POTASSIUM 4.0 mmol/L 07/31 Unknown COMPREHENSIVE METABOLIC 71950 Total Protein 6.8 g/dL Unknown COMPREHENSIVE METABOLIC 43733 Glucose 86 mg/dL 2016 Unknown COMPREHENSIVE METABOLIC 98354 Bicarbonate 28 mmol/L 07/18 Unknown COMPREHENSIVE METABOLIC 74395 AGAP 8 mmol/L 2016 Unknown COMPREHENSIVE METABOLIC 10662 AST 18 U/L 2015 Unknown COMPREHENSIVE METABOLIC 87642 ALT 9 U/L 2015 Unknown COMPREHENSIVE METABOLIC 75946 BUN 11 mg/dL 2015 Unknown COMPREHENSIVE METABOLIC 80367 ALBUMIN 4.2 g/dL 2015 Unknown COMPREHENSIVE METABOLIC 41462 CHLORIDE 104 mmol/L 05/19 Unknown COMPREHENSIVE METABOLIC 36162 Bili Total 1.2 mg/dL 05/19 Unknown COMPREHENSIVE METABOLIC 21300 ALK PHOS 54 U/L 2015 Unknown COMPREHENSIVE METABOLIC 28577 SODIUM 140 mmol/L 05/19 Unknown COMPREHENSIVE METABOLIC 81874 CREATININE 1.03 mg/dL 10/2015 Unknown COMPREHENSIVE METABOLIC 66957 CALCIUM 9.3 mg/dL 2015 Unknown COMPREHENSIVE METABOLIC 08403 POTASSIUM 4.9 mmol/L 05/19 Unknown COMPREHENSIVE METABOLIC 39595 Total Protein 6.7 g/dL Unknown COMPREHENSIVE METABOLIC 45253 Glucose 92 mg/dL 2015 Unknown COMPREHENSIVE METABOLIC 76059 Bicarbonate 28 mmol/L 10/2015 Unknown COMPREHENSIVE METABOLIC 88858 AGAP 8 mmol/L 2015 Unknown THYROID STIMULATING HORMONE 73229 TSH 1.545 uIU/mL 05/19/2016 Unknown GFR CALC 2156266 GFR Non Afr Amr >60 mL/min 05/19/2016 Un known GFR CALC 3155445 GFR Afr Amr >60 mL/min 05/19/2016 Unknow n VITAMIN B 12 88642 VITAMIN B12 298 pg/mL 05/19/2016 Unkn own COMPLETE BLOOD COUNT [id number] WBC 5.2 10e9/L 05/19/20 16 Unknown COMPLETE BLOOD COUNT [id number] RBC 4.34 10e12/L 2015 Unknown COMPLETE BLOOD COUNT 5547171 HEMOGLOBIN 12.9 g/dL 05/19/20 16 Unknown COMPLETE BLOOD COUNT [id number] HEMATOCRIT 38.9 % 05/19/20 16 Unknown COMPLETE BLOOD COUNT 9860228 MCV 89.6 fL 6 Unknown COMPLETE BLOOD COUNT 9911881 MCH 29.7 pg 6 Unknown COMPLETE BLOOD COUNT 4909768 MCHC 33.2 g/dL 6 Unknown COMPLETE BLOOD COUNT 3701119 PLATELET COUNT 200 10e9/L 10/2015 Unknown COMPLETE BLOOD COUNT 4613587 Mean Plt Volume 10.1 fL 10/2015 Unknown COMPLETE BLOOD COUNT 5014618 Neut Auto 45.4 % 6 Unknown COMPLETE BLOOD COUNT 6597939 Lymph Auto 35.6 % 05/19/20 16 Unknown COMPLETE BLOOD COUNT 5958815 [place] Auto 11.9 % 6 Unknown COMPLETE BLOOD COUNT 9338885 RDW 12.7 % 6 Unknown COMPLETE BLOOD COUNT 3751183 Eos Auto 6.7 % 6 Unknown COMPLETE BLOOD COUNT 8883094 Baso Auto 0.4 % 6 Unknown COMPLETE BLOOD COUNT 2568650 Neutrophil Abs 2.36 10e9/L Unknown COMPLETE BLOOD COUNT 6783872 Lymphocyte Abs 1.85 10e9/L Unknown COMPLETE BLOOD COUNT [id number] Monocyte Abs 0.62 10e9/L 10/2015 Unknown COMPLETE BLOOD COUNT 2584803 Eosinophil Abs 0.35 10e9/L Unknown COMPLETE BLOOD COUNT 5504852 Basophil Abs 0.02 10e9/L 10/2015 Unknown COMPLETE BLOOD COUNT 2340040 RDW-SD 40.6 fL 6 Unknown LIPID GROUP 89521 Cholesterol 197 mg/dL 05/19/2016 Unkno wn LIPID GROUP 66117 Triglyceride 92 mg/dL 05/19/2016 Unkn own LIPID GROUP 88654 HDL CHOLESTEROL 58 mg/dL 05/19/2016 U nknown LIPID GROUP 49040 Chol/HDL Ratio 3.40 ratio 05/19/2016 U nknown LIPID GROUP 45201 NON-HDL Chol 139 mg/dL 05/19/2016 Unkn own LIPID GROUP 95906 LDL Cholesterol 121 mg/dL 05/19/2016 U nknown FREE T4 86073 T4 Free 1.19 ng/dL 05/19/2016 Unknown COMPREHENSIVE METABOLIC 89901 AST 19 U/L 2014 Unknown COMPREHENSIVE METABOLIC 94445 ALT 10 IU/L 2014 Unknown COMPREHENSIVE METABOLIC 12297 BUN 20 MG/DL 2014 Unknown COMPREHENSIVE METABOLIC 24121 ALBUMIN 4.4 GM/DL 2014 Unknown COMPREHENSIVE METABOLIC 83755 CHLORIDE 104 MMOL/L 04/05 Unknown COMPREHENSIVE METABOLIC 81845 BILI TOT 2.2 MG/DL 2014 Unknown COMPREHENSIVE METABOLIC 62732 ALK PHOS 55 U/L 2014 Unknown COMPREHENSIVE METABOLIC 02775 SODIUM 138 MMOL/L 04/05 Unknown COMPREHENSIVE METABOLIC 62256 CREATININE 1.04 MG/DL 03/18 Unknown COMPREHENSIVE METABOLIC 24579 CALCIUM 9.3 MG/DL 2014 Unknown COMPREHENSIVE METABOLIC 35555 POTASSIUM 4.5 MMOL/L 04/05 Unknown COMPREHENSIVE METABOLIC 21706 PROT TOT 6.7 GM/DL 2014 Unknown COMPREHENSIVE METABOLIC 96529 Glucose 77 MG/DL 2014 Unknown COMPREHENSIVE METABOLIC 15520 BICARB 25 MMOL/L 2014 Unknown COMPREHENSIVE METABOLIC 60777 ANION GAP 9 MEQ/L 2014 Unknown GFR CALC 8170615 GFR AA >60 ML/MIN 04/05/2015 Unknown GFR CALC 4738009 GFR NON-AA >60 ML/MIN 04/05/2015 Unknown LIPID GROUP 17177 HDL TEST 60 MG/DL 04/05/2015 Unknown LIPID GROUP 25103 TRIG 70 MG/DL 04/05/2015 Unknown LIPID GROUP 47938 TEST LDL 137 MG/DL 04/05/2015 Unknown LIPID GROUP 20583 CHOL 211 MG/DL 04/05/2015 Unknown LIPID GROUP 87196 RCHOL/HDL 3.52 RATIO 04/05/2015 Unknow n LIPID GROUP 08290 NON-HDL CH 151 MG/DL 04/05/2015 Unknow n COMPLETE BLOOD COUNT 1607179 WBC 5.3 10e9/L 04/05/20 15 Unknown COMPLETE BLOOD COUNT [id number] RBC 4.42 10e12/L 2014 Unknown COMPLETE BLOOD COUNT 7928172 HGB 13.4 g/dL 5 Unknown COMPLETE BLOOD COUNT 7575219 HCT DET 39.6 % 5 Unknown COMPLETE BLOOD COUNT 6273576 MCV 89.6 fL 5 Unknown COMPLETE BLOOD COUNT [id number] MCH 30.3 pg 5 Unknown COMPLETE BLOOD COUNT 9750449 MCHC 33.8 g/dL 5 Unknown COMPLETE BLOOD COUNT 9957243 PLT 201 10e9/L 04/05/20 15 Unknown COMPLETE BLOOD COUNT 3856906 MPV 10.3 fL 5 Unknown COMPLETE BLOOD COUNT 6617177 LUPE % 56.4 % 5 Unknown COMPLETE BLOOD COUNT 7388105 LY % 24.8 % 5 Unknown COMPLETE BLOOD COUNT 5378390 MON % 12.8 % 5 Unknown COMPLETE BLOOD COUNT 9408460 EOS % 5.4 % 5 Unknown COMPLETE BLOOD COUNT 2987894 BASO % 0.6 % 5 Unknown COMPLETE BLOOD COUNT 3685740 RDW 13.2 % 5 Unknown COMPLETE BLOOD COUNT 6203232 ABS LUPE 2.99 10e9/L 015 Unknown COMPLETE BLOOD COUNT [id number] ABS LYMPH 1.31 10e9/L 015 Unknown COMPLETE BLOOD COUNT 2056562 ABS MONO 0.68 10e9/L 015 Unknown COMPLETE BLOOD COUNT [id number] ABS EOS 0.29 10e9/L 015 Unknown COMPLETE BLOOD COUNT [id number] ABS BASO 0.03 10e9/L 015 Unknown COMPLETE BLOOD COUNT [id number] RDW-SD 42.3 fL 5 Unknown LIPID GROUP 09512 HDL TEST 51 MG/DL 07/19/2012 Unknown LIPID GROUP 20286 TRIG 129 MG/DL 07/19/2012 Unknown LIPID GROUP 31074 TEST LDL 98 MG/DL 07/19/2012 Unknown LIPID GROUP 43330 CHOL 175 MG/DL 07/19/2012 Unknown LIPID GROUP 07261 RCHOL/HDL 3.43 RATIO 07/19/2012 Unknow n COMPREHENSIVE METABOLIC 61478 AST 18 U/L 2011 Unknown COMPREHENSIVE METABOLIC 20628 ALT 12 IU/L 2011 Unknown COMPREHENSIVE METABOLIC 75425 BUN 10 MG/DL 2011 Unknown COMPREHENSIVE METABOLIC 40894 ALBUMIN 4.1 GM/DL 2011 Unknown COMPREHENSIVE METABOLIC 22508 CHLORIDE 103 MMOL/L 07/19 Unknown COMPREHENSIVE METABOLIC 51365 BILI TOT 0.9 MG/DL 2011 Unknown COMPREHENSIVE METABOLIC 17426 ALK PHOS 62 U/L 2011 Unknown COMPREHENSIVE METABOLIC 11775 SODIUM 138 MMOL/L 07/19 Unknown COMPREHENSIVE METABOLIC 33469 CREATININE 1.08 MG/DL 10/2011 Unknown COMPREHENSIVE METABOLIC 30576 CALCIUM 9.1 MG/DL 2011 Unknown COMPREHENSIVE METABOLIC 47970 POTASSIUM 4.2 MMOL/L 07/19 Unknown COMPREHENSIVE METABOLIC 25549 PROT TOT 6.7 GM/DL 2011 Unknown COMPREHENSIVE METABOLIC 93837 Glucose 101 MG/DL 2011 Unknown COMPREHENSIVE METABOLIC 44309 BICARB 27 MMOL/L 2011 Unknown COMPREHENSIVE METABOLIC 80146 ANION GAP 8 MEQ/L 2011 Unknown GFR CALC [id number] GFR AA >60 ML/MIN 07/19/2012 Unknown GFR CALC [id number] GFR NON-AA >60 ML/MIN 07/19/2012 Unknown Procedures Procedure Codes Date ROUTINE VENIPUNCTURE CPT-4: 35531 09/30/2019 COMPREHEN METABOLIC PANEL CPT-4: 37307 09/30/2019 COMPLETE CBC W/AUTO DIFF WBC CPT-4: 52925 09/30/2019 ASSAY OF PSA TOTAL CPT-4: 20396 09/30/2019 ASSAY THYROID STIM HORMONE CPT-4: 98703 09/30/2019 LIPID PANEL CPT-4: 34416 09/30/2019 ROUTINE VENIPUNCTURE CPT-4: 11906 09/24/2019 COMPLETE CBC W/AUTO DIFF WBC CPT-4: 79661 09/24/2019 COMPREHEN METABOLIC PANEL CPT-4: 37465 09/24/2019 LIPID PANEL CPT-4: 68128 09/24/2019 ASSAY THYROID STIM HORMONE CPT-4: 13054 09/24/2019 THER/PROPH/DIAG INJ SC/IM CPT-4: 63701 01/13/2019 TRIAMCINOLONE ACET INJ NOS CPT-4: J3301 01/13/2019 DEXAMETHASONE SODIUM PHOS CPT-4: J1100 01/13/2019 ROUTINE VENIPUNCTURE CPT-4: 66444 09/04/2018 COMPREHEN METABOLIC PANEL CPT-4: 59615 09/04/2018 COMPLETE CBC W/AUTO DIFF WBC CPT-4: 53540 09/04/2018 LIPID PANEL CPT-4: 96390 09/04/2018 ASSAY OF PSA TOTAL CPT-4: 68488 09/04/2018 ASSAY THYROID STIM HORMONE CPT-4: 40671 09/04/2018 URINALYSIS NONAUTO W/O SCOPE CPT-4: 06469 05/15/2018 ROUTINE VENIPUNCTURE CPT-4: 51628 11/16/2017 A FRT/VG P CPT-4: 6911187 11/16/2017 A FOOD C P CPT-4: 8641509 11/16/2017 A NUTS PNL CPT-4: 4606259 11/16/2017 THER/PROPH/DIAG INJ SC/IM CPT-4: 26472 11/06/2017 TRIAMCINOLONE ACET INJ NOS CPT-4: J3301 11/06/2017 DEXAMETHASONE SODIUM PHOS CPT-4: J1100 11/06/2017 ROUTINE VENIPUNCTURE CPT-4: 36196 09/03/2017 ASSAY OF FREE THYROXINE CPT-4: 86256 09/03/2017 ASSAY THYROID STIM HORMONE CPT-4: 81559 09/03/2017 ASSAY TRIIODOTHYRONINE (T3) CPT-4: 89022 09/03/2017 ROUTINE VENIPUNCTURE CPT-4: 43266 07/31/2017 COMPREHEN METABOLIC PANEL CPT-4: 94461 07/31/2017 COMPLETE CBC W/AUTO DIFF WBC CPT-4: 95581 07/31/2017 LIPID PANEL CPT-4: 09314 07/31/2017 FLU VACC PRSV FREE INC ANTIG 65 AND OLDER CPT-4: 88802 07/04/2017 ADMIN INFLUENZA VIRUS VAC CPT-4: G0008 07/04/2017 ROUTINE VENIPUNCTURE CPT-4: 60926 02/26/2017 ASSAY THYROID STIM HORMONE CPT-4: 07802 02/26/2017 COMPREHEN METABOLIC PANEL CPT-4: 02841 02/26/2017 COMPLETE CBC W/AUTO DIFF WBC CPT-4: 56188 02/26/2017 LIPID PANEL CPT-4: 36370 02/26/2017 ASSAY OF PSA TOTAL CPT-4: 82175 02/26/2017 FLUZONE, 5ML (Medicare) CPT-4: Q2038 06/28/2016 ADMIN INFLUENZA VIRUS VAC CPT-4: G0008 06/28/2016 ROUTINE VENIPUNCTURE CPT-4: 82362 05/19/2016 ASSAY OF FREE THYROXINE CPT-4: 06332 05/19/2016 ASSAY THYROID STIM HORMONE CPT-4: 20318 05/19/2016 COMPREHEN METABOLIC PANEL CPT-4: 34898 05/19/2016 COMPLETE CBC W/AUTO DIFF WBC CPT-4: 54940 05/19/2016 LIPID PANEL CPT-4: 70784 05/19/2016 VITAMIN B-12 CPT-4: 90177 05/19/2016 PPPS, initial visit CPT-4: G0438 05/10/2016 ROUTINE VENIPUNCTURE CPT-4: 31333 04/05/2015 ASSAY THYROID STIM HORMONE CPT-4: 75171 04/05/2015 COMPREHEN METABOLIC PANEL CPT-4: 72466 04/05/2015 COMPLETE CBC W/AUTO DIFF WBC CPT-4: 68720 04/05/2015 LIPID PANEL CPT-4: 97172 04/05/2015 ASSAY OF PSA TOTAL CPT-4: 37782 04/05/2015 ROUTINE VENIPUNCTURE CPT-4: 16998 07/19/2012 COMPREHEN METABOLIC PANEL CPT-4: 86792 07/19/2012 LIPID PANEL CPT-4: 30888 07/19/2012 ELECTROCARDIOGRAM COMPLETE CPT-4: 90906 03/22/2012 Vital Signs Date Vital 09/24/2019 Blood Pressure 1: 125/72 Code: 8480-6 BMI: 19.8 Code: 22251-3 Heart Rate 1: 88 bpm Height: 5'11" [...] 1: 102/60 Code: 8480-6 BMI: 19.1 Code: 41012-1 Heart Rate 1: 82 bpm Height: 5'11" Respiratory Rate: 22 bpm SpO2: 97% Tempera ture: 36.4 (C) / 97.6 (F) Weight: 137 lbs 04/25/2018 Blood Pressure 1: 118/64 Code: 8480-6 BMI: 19.2 Code: 27655-6 Heart Rate 1: 98 bpm Height: 5'11" Respiratory Rate: 20 bpm SpO2: 99% Tempera ture: 36.4 (C) / 97.6 (F) Weight: 138 lbs 11/06/2017 Blood Pressure 1: 108/68 Code: 8480-6 BMI: 18.5 Code: 40675-3 Heart Rate 1: 68 bpm Height: 5'11" Respiratory Rate: 20 bpm SpO2: 96% Tempera ture: 36.8 (C) / 98.2 (F) Weight: 133 lbs 09/03/2017 Blood Pressure 1: 122/64 Code: 8480-6 BMI: 17.6 Code: 16195-9 Heart Rate 1: 90 bpm Height: 5'11" Respiratory Rate: 20 bpm SpO2: 98% Tempera ture: 36.4 (C) / 97.6 (F) Weight: 126 lbs 08/21/2017 Blood Pressure 1: 114/80 Code: 8480-6 BMI: 17.9 Code: 57905-8 Heart Rate 1: 80 bpm Height: 5'11" Respiratory Rate: 20 bpm SpO2: 95% Tempera ture: 36.6 (C) / 97.9 (F) Weight: 128 lbs 02/13/2017 Blood Pressure 1: 122/60 Code: 8480-6 BMI: 18.5 Code: 41041-6 Heart Rate 1: 76 bpm Height: 5'11" Respiratory Rate: 20 bpm SpO2: 96% Tempera ture: 36.9 (C) / 98.4 (F) Weight: 133 lbs 11/23/2016 Blood Pressure 1: 126/70 Code: 8480-6 BMI: 18.5 Code: 16662-1 Heart Rate 1: 100 bpm Height: 5'11" Respiratory Rate: 20 bpm SpO2: 96% Tempera ture: 37.1 (C) / 98.8 (F) Weight: 133 lbs 05/23/2016 Blood Pressure 1: 128/82 Code: 8480-6 BMI: 18.5 Code: 24491-1 Heart Rate 1: 88 bpm Height: 5'11" Respiratory Rate: 20 bpm Temperature: 36 .7 (C) / 98.0 (F) Weight: 133 lbs 05/10/2016 Blood Pressure 1: 146/70 Code: 8480-6 BMI: 18.5 Code: 79272-5 Heart Rate 1: 84 bpm Height: 5'11" Respiratory Rate: 20 bpm Temperature: 36 .7 (C) / 98.1 (F) Weight: 133 lbs 04/01/2015 Blood Pressure 1: 102/60 Code: 8480-6 BMI: 18.5 Code: 16111-9 Heart Rate 1: 64 bpm Height: 5'11" Respiratory Rate: 20 bpm Temperature: 36 .8 (C) / 98.2 (F) Weight: 133 lbs 01/13/2014 Blood Pressure 1: 124/78 Code: 8480-6 BMI: 19.8 Code: 94154-5 Heart Rate 1: 76 bpm Height: 5'11" Respiratory Rate: 20 bpm Temperature: 36 .8 (C) / 98.2 (F) Weight: 142 lbs 04/03/2012 Blood Pressure 1: 106/76 Code: 8480-6 BMI: 20.9 Code: 34600-1 Heart Rate 1: 84 bpm Height: 5'11" Respiratory Rate: 20 bpm Temperature: 36 .7 (C) / 98.0 (F) Weight: 150 lbs 12/20/2011 Blood Pressure 1: 116/60 Code: 8480-6 BMI: 20.1 Code: 03035-4 Heart Rate 1: 80 bpm Height: 5'11" Respiratory Rate: 20 bpm Temperature: 36 .4 (C) / 97.6 (F) Weight: 144 lbs 10/24/2011 Blood Pressure 1: 132/74 Code: 8480-6 BMI: 19.7 Code: 54220-3 Heart Rate 1: 96 bpm Height: 5'11" [...] 04/05/2015 follow up 04/01/2015 follow up 01/13/2014 [facility] from Justin Palacio'justin in November 2012 lab draw 07/19/2012 follow up 04/03/2012 S/P stent placement in LAD, changed effient to plavix hip pain 12/20/2011 dyskinesia or tremor 10/24/2011 follow up 03/13/2011 started on effient, zocor, and atenolol follow up 02/20/2011 [facility]/Dr Christian rojas follow up 02/23/2010 [facility], appt with Dr Bajwa 03/22/10 insomnia 01/12/2010 problems falling and staying asleep, takes nortriptyline Encounters Encounter Performer Location Codes Date ([id number]) OFFICE/OUTPATIENT VISIT EST Diagnosis: Essential tremor[ICD10: G25.0] Vonnie Mathews [facility] CPT-4: 56404 12/24/2019 ([id number]) NURSE/OUTPATIENT VISIT EST Diagnosis: Essential (primary) hypertension[ICD10: I10] Diagnosis: Mixed hyperlipidemia[ICD10: E78.2] Diagnosis: Encounter for screening for malignant neoplasm of prostate[ICD10: Z12.5] Vonnie MATHEWS [facility] CPT-4: 97266 09/30/2019 ([id number]) OFFICE/OUTPATIENT VISIT EST Diagnosis: Encounter for therapeutic drug level monitoring[ICD10: Z51.81] Diagnosis: Essential tremor[ICD10: G25.0] Verna MATHEWS DO [facility] CPT-4: 75491 09/24/2019 ([id number]) OFFICE/OUTPATIENT VISIT EST Diagnosis: Noninfective gastroenteritis and colitis, unspecified[ICD10: K52.9] Diagnosis: Hemorrhage of anus and rectum[ICD10: K62.5] Vonnie MATHEWS [facility] CPT-4: 65483 05/26/2019 ([id number]) OFFICE/OUTPATIENT VISIT EST Diagnosis: Other intervertebral disc degeneration, 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] Diagnosis: Other forms of dyspnea[ICD10: R06.09] Vonnie MATHEWS [facility] CPT-4: 52901 03/17/2019 OFFICE/OUTPATIENT VISIT EST Diagnosis: Other intervertebral disc degeneration, 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] Diagnosis: Other symptoms and signs involving the musculoskeletal system[ICD10: R29.898] Vonnie MATHEWS [facility] CPT-4: 85590 02/18/2019 ([id number]) OFFICE/OUTPATIENT VISIT EST Diagnosis: Other allergic rhinitis[ICD10: J30.89] Akilah ALBERTO HUBERT MATHEWS [employer] [facility] CPT-4: 97751 01/13/2019 ([id number]) NURSE/OUTPATIENT VISIT EST Diagnosis: Mixed hyperlipidemia[ICD10: E78.2] Diagnosis: Essential (primary) hypertension[ICD10: I10] Diagnosis: Encounter for screening for malignant neoplasm of prostate[ICD10: Z12.5] Diagnosis: Encounter for general adult medical examination with abnormal findings[ICD10: Z00.01] Diagnosis: Benign prostatic hyperplasia without lower urinary tract symptoms[ICD10: N40.0] Vonnie MATHEWS DO [facility] CPT-4: 10041 09/04/2018 ([id number]) OFFICE/OUTPATIENT VISIT EST Diagnosis: Otorrhea, left ear[ICD10: H92.12] Diagnosis: Impacted cerumen, right ear[ICD10: H61.21] Verna MATHEWS DO [facility] CPT-4: 52658 09/03/2018 ([id number]) OFFICE/OUTPATIENT VISIT EST Diagnosis: Other intervertebral disc degeneration, 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] Diagnosis: Primary insomnia[ICD10: F51.01] Diagnosis: Essential tremor[ICD10: G25.0] Vonnie MATHEWS [facility] CPT-4: 88060 08/26/2018 ([id number]) OFFICE/OUTPATIENT VISIT EST Diagnosis: Pelvic and perineal pain[ICD10: R10.2] Verna MATHEWS [facility] CPT-4: 53776 05/15/2018 ([id number]) OFFICE/OUTPATIENT VISIT EST Diagnosis: Encounter for therapeutic drug level monitoring[ICD10: Z51.81] Diagnosis: Acute sinusitis, unspecified[ICD10: J01.90] Diagnosis: Other intervertebral disc degeneration, 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] Diagnosis: Essential tremor[ICD10: G25.0] Diagnosis: Raynaud's syndrome without gangrene[ICD10: I73.00] Verna MATHEWS DO [facility] CPT-4: 61075 04/25/2018 ([id number]) OFFICE/OUTPATIENT VISIT EST Diagnosis: Idiopathic urticaria[ICD10: L50.1] Diagnosis: Other urticaria[ICD10: L50.8] Vonnie MATHEWS [facility] CPT-4: 32914 11/16/2017 ([id number]) OFFICE/OUTPATIENT VISIT EST Diagnosis: Idiopathic urticaria[ICD10: L50.1] Diagnosis: Other urticaria[ICD10: L50.8] Diagnosis: Other forms of dyspnea[ICD10: R06.09] Vonnie BREWERNE Denia MATHEWS [facility] CPT-4: 01601 11/06/2017 ([id number]) OFFICE/OUTPATIENT VISIT EST Diagnosis: Dyspnea, unspecified[ICD10: R06.00] Diagnosis: Abnormal weight loss[ICD10: R63.4] Vonnie DOUGLASS REA MATHEWS [employer] [facility] CPT-4: 01084 09/03/2017 ([id number]) OFFICE/OUTPATIENT VISIT EST 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] Diagnosis: Mixed hyperlipidemia[ICD10: E78.2] Diagnosis: Essential tremor[ICD10: G25.0] Diagnosis: Essential (primary) hypertension[ICD10: I10] Diagnosis: Abnormal weight loss[ICD10: R63.4] Vonnie DOUGLASS REA BOWMAN [employer] [facility] CPT-4: 45832 08/21/2017 ([id number]) OFFICE/OUTPATIENT VISIT EST Diagnosis: Mixed hyperlipidemia[ICD10: E78.2] Diagnosis: Essential (primary) hypertension[ICD10: I10] 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] Diagnosis: Anemia, unspecified[ICD10: D64.9] Vonnie Galarza Denia BOWMAN [employer] [facility] CPT-4: 69339 07/31/2017 ([id number]) OFFICE/OUTPATIENT VISIT EST Diagnosis: FLU VACCINE[ICD10: Z23] Vonnie COLMENARES Denia BOWMAN [employer] [facility] CPT-4: 99674 07/04/2017 ([id number]) OFFICE/OUTPATIENT VISIT EST Diagnosis: Mixed hyperlipidemia[ICD10: E78.2] Diagnosis: Essential tremor[ICD10: G25.0] 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] Diagnosis: Essential (primary) hypertension[ICD10: I10] Diagnosis: Supraventricular tachycardia[ICD10: I47.1] Diagnosis: Other fatigue[ICD10: R53.83] Diagnosis: Encounter for screening for malignant neoplasm of prostate[ICD10: Z12.5] Vonnie COLMENARES Denia BOWMAN [employer] [facility] CPT-4: 39710 02/26/2017 ([id number]) OFFICE/OUTPATIENT VISIT EST Diagnosis: Essential tremor[ICD10: G25.0] Vonnie MATHEWS DO [facility] CPT-4: 86443 02/13/2017 ([id number]) OFFICE/OUTPATIENT VISIT EST Diagnosis: Essential tremor[ICD10: G25.0] Diagnosis: Other intervertebral disc degeneration, 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] Vonnie MATHEWS DO [facility] CPT-4: 34421 11/23/2016 ([id number]) OFFICE/OUTPATIENT VISIT EST Diagnosis: FLU VACCINE[ICD10: Z23] Vonnie GERMAN DO [facility] CPT-4: 97946 06/28/2016 OFFICE/OUTPATIENT VISIT EST Diagnosis: Open bite of right hand, initial encounter[ICD10: S61.451A] Vonnie MATHEWS DO [facility] CPT-4: 54113 05/23/2016 ([id number]) OFFICE/OUTPATIENT VISIT EST Diagnosis: Encounter for general adult medical examination with abnormal findings[ICD10: Z00.01] Diagnosis: Mixed hyperlipidemia[ICD10: E78.2] Diagnosis: Essential tremor[ICD10: G25.0] 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] Vonnie MATHEWS DO [facility] CPT-4: 34877 05/19/2016 ([id number]) OFFICE/OUTPATIENT VISIT EST Diagnosis: HYPERLIPIDEMIA NEC/NOS[ICD9: 272.4] Diagnosis: CAD[ICD9: 414.00] Diagnosis: TACHYCARDIA[ICD9: 785.0] Diagnosis: HYPERTENSION[ICD9: 401.9] Diagnosis: Routine medical exam[ICD9: V70.0] Vonnie MATHEWS DO [facility] CPT-4: 78502 04/05/2015 ([id number]) OFFICE/OUTPATIENT VISIT EST Diagnosis: HYPERTENSION[ICD9: 401.9] Diagnosis: HYPERLIPIDEMIA NEC/NOS[ICD9: 272.4] Diagnosis: CAD[ICD9: 414.00] Diagnosis: LUMB/LUMBOSAC DISC DEGEN[ICD9: 722.52] Vonnie Bowmanranjan DOLLY GASPAR Denia MATHEWS [facility] CPT-4: 93269 04/01/2015 ([id number]) OFFICE/OUTPATIENT VISIT EST Diagnosis: CHEST PAIN NOS[ICD9: 786.50] Diagnosis: PAIN IN THORACIC SPINE[ICD9: 724.1] Diagnosis: HYPERTENSION[ICD9: 401.9] Diagnosis: GERD[ICD9: 530.81] Vonnie ASCENCIOLINE JustinKim ROMULONDER [facility] CPT-4: 87924 01/13/2014 ([id number]) OFFICE/OUTPATIENT VISIT EST Diagnosis: CAD[ICD9: 414.00] Diagnosis: HYPERLIPIDEMIA NEC/NOS[ICD9: 272.4] Vonnie LAIBESSY ANNA SKim ROMULONDER [facility] CPT-4: 52204 07/19/2012 ([id number]) OFFICE/OUTPATIENT VISIT EST Diagnosis: CAD[ICD9: 414.00] Diagnosis: INSOMNIA NOS[ICD9: 780.52] Vonnie Romuloalyssaranjan VONNIE Loza DANAY YULISA [facility] CPT-4: 11538 04/03/2012 ([id number]) OFFICE/OUTPATIENT VISIT EST Diagnosis: CHEST PAIN NOS[ICD9: 786.50] Diagnosis: CAD[ICD9: 414.00] Vonnie LAIQUELINE JustinKim ROMULONDER [facility] CPT-4: 64892 03/22/2012 ([id number]) OFFICE/OUTPATIENT VISIT EST Diagnosis: PROSTATITIS[ICD9: 601.9] Diagnosis: TREMOR NEC[ICD9: 333.1] Vonnie Mathews VONNIE JustinKim ROMULOND ER [facility] CPT-4: 07158 12/20/2011 OFFICE/OUTPATIENT VISIT EST Diagnosis: TREMOR NEC[ICD9: 333.1] Diagnosis: TACHYCARDIA[ICD9: 785.0] Diagnosis: HYPERTENSION[ICD9: 401.9] Vonnie Romulojuan miguel COLMENARES JustinKim ROMULO NDER DO [facility] CPT-4: 88278 10/24/2011 OFFICE/OUTPATIENT VISIT EST Vonnie Romuloalyssaranjan VONNIE JustinKim ROMULO NDER [facility] CPT- 4: 50934 03/13/2011 ([id number]) OFFICE/OUTPATIENT VISIT EST Vonnie Romuloalyssaranjan DOLLY GASPAR SKim ROMULONDER [facility] CPT-4: 40930 02/20/2011 ([id number]) OFFICE/OUTPATIENT VISIT, GINETTE MATHEWS DO [employer] CPT-4: 75597 02/23/2010 ([id number]) OFFICE/OUTPATIENT VISIT, EST Vonnie MATHEWS DO [employer] CPT-4: 12291 01/12/2010 Plan of Care Planned Activity Notes Codes Status Date Visit Diagnosis Plan: Essential tremor Discussion: Sta ble on clonazepam Fwup in 3mos with fasting lab ICD-9 : 333.1 ICD-10 : G25.0 12/24/2019 Patient Education: [employer] HFA- [employer] Coupon [id number] [email or web address] Completed 12/24/2019 Appointment: Vonnie Mathews WPtel: [phone] [facility] US LAB 09/30/2019 Appointment: Verna Ramirez [address] [place], [place] [address] [address] RESCHEDULED 09/25/2019 Visit Diagnosis Plan: Encounter for therapeutic drug l evel monitoring Discussion: UDS and contract completed today. ICD-9 : V58.83 ICD-10 : Z51.81 09/24/2019 Visit Diagnosis Plan: Essential tremor Discussion: sta ble on clonazepam. educated patient about purchasing a large, heavy pen that will allow him to improve his writing. instructed him that pens can be purchased on [employer]. ICD-9 : 333.1 ICD-10 : G25.0 09/24/2019 Appointment: Verna Ramirez [address] [id number] MEDICATION REVIEW 09/24/2019 Visit Diagnosis Plan: Hemorrhage of anus and rectum Di scussion: Update colonoscopy ICD-9 : 569.3 ICD-10 : K62.5 05/26/2019 Visit Diagnosis Plan: Noninfective gastroenteritis and colitis, unspecified Discussion: Flagyl [place] diet Update colonoscopy ICD-9 : 558.9 ICD-10 : K52.9 05/26/2019 Appointment: Vonnie Mathews WPtel: [phone] [place] [phone] US record request faxed 05/23; ANGELINA with medical records 05/26/19 Hospital Follow Up 05/26/2019 Care Plan: Referral Order SNOMED-CT : 30 [id number] Pending 05/26/2019 Visit Diagnosis Plan: Other intervertebral disc degene ration, lumbar region Discussion: Increase lyrica to 150mg po q HS Continue stretches from PT [facility] Fwup after that appointment ICD-9 : 722.52 ICD-10 : M51.36 03/17/2019 Appointment: Vonnie Mathews WPtel: [address] [place], [place] [phone] US FOLLOW UP 03/17/2019 Visit Diagnosis Plan: [...] once CT scan results obtained [facility] ER Follow Up: 3 weeks ICD-9 : 722.52 ICD-10 : M51.36 02/18/2019 Appointment: Vonnie Mathews WPtel: [address] [place], [place] [phone] US FOLLOW UP 02/18/2019 Appointment: Vonnie Mathews WPtel: [address] [place], [place] [phone] US CANCELED 02/18/2019 Visit Diagnosis Plan: Other [...] ICD-10 : J30.89 01/13/2019 Appointment: Akilah Lopez [facility] [employer] [id number] US Due for annual wellness ACUTE ILLNESS 01/14/20 Appointment: Vonnie Mathews WPtel: [address] [place] [address] US LAB 09/04/2018 Visit Diagnosis Plan: Otorrhea, [...] : H61.21 09/03/2018 Appointment: Verna Ramirez [address] [place] [address] ACUTE ILLNESS 09/03/2018 Visit Diagnosis Plan: Primary [...] G25.0 08/26/2018 Appointment: Vonnie Mathews WPtel: [phone] FOLLOW UP 08/26/2018 Visit Diagnosis Plan: [...] : R10.2 05/15/2018 Appointment: Verna Ramirez [address] [facility] ACUTE ILLNESS 05/15/2018 Patient Education: Patient Medication Summary Completed 05/15/2018 Care Plan: US EXAM PELVIC COMPLETE scrotal LOINC : 00438-8 Pending 05/15/2018 Visit Diagnosis Plan: Other intervertebral [...] : J01.90 04/25/2018 Appointment: [facility]a [facility] MEDICATION REVIEW 04/25/2018 Patient Education: Patient Medication Summary Completed 04/25/2018 Appointment: Vonnie Mathews WPtel: [phone] [facility] 11/16/2017 Patient Education: Patient Medication Summary [...] : L50.1 11/06/2017 Appointment: Vonnie Mathews WPtel: [address] [place] [address] FOLLOW UP 11/06/2017 Patient Education: Patient Medication [...] : R63.4 09/03/2017 Appointment: Vonnie Mathews WPtel: [address] [place] [address] FOLLOW UP 09/03/2017 Patient Education: Patient Medication Summary Completed 09/03/2017 Visit Diagnosis Plan: Mixed hyperlipidemia Discussion: Lab discussed ICD-9 : 272.4 ICD-10 : E78.2 08/21/2017 Visit Diagnosis Plan: Essential tremor Discussion: Sta ble on Primidone ICD-9 : 333.1 ICD-10 : G25.0 08/21/2017 Visit Diagnosis Plan: Atherosclerotic he art disease of barrow coronary artery without angina pectoris Discussion: Sees Cardiology in 2 days To ER if CP returns before ICD-9 : 414.00 ICD-10 : I25.10 08/21/2017 Visit Diagnosis Plan: Abnormal weight loss Discussion: Start daily protein shake or smoothie ICD-9 : 783.21 ICD-10 : R63.4 08/21/2017 Visit Diagnosis Plan: Essential (primary) hypertension Discussion: Stable ICD-9 : 401.9 ICD-10 : I10 08/21/2017 Appointment: Vonnie Mathews WPtel: [address] [place], [place] [address] US FOLLOW UP 08/21/2017 Patient Education: Patient Medication Summary Completed 08/21/2017 Appointment: Vonnie Mathews WPtel: [address] [place] [address] US LAB 07/31/2017 Patient Education: Patient Medication Summary Completed 07/31/2017 Appointment: Vonnie Mathews WPtel: [address] [place] [address] US INJECTION 07/04/2017 Patient Education: Patient Medication Summary Completed 07/04/2017 Appointment: Vonnie Mathews WPtel: [address] [place] [address] US LAB 02/26/2017 Patient Education: Patient Medication Summary Completed 02/26/2017 Visit Diagnosis Plan: Essential tremor Discussion: Con tinue clonazepam at 1mg q AM and primidone 50mg q HS Follow Up: 3 months ICD-9 : 333.1 ICD-10 : G25.0 02/13/2017 Appointment: Vonnie Mathews WPtel: [address] [place], [place] [phone] 02/08 confirmed~sl FOLLOW UP 02/13/2017 Patient Education: Patient Medication Summary Completed 02/13/2017 Appointment: Vonnie Mathews WPtel: [address] [place], [place] [phone] US RESCHEDULED 01/23/2017 Visit Diagnosis Plan: Other intervertebral disc degene ration, lumbar region Discussion: DC oxycodone Tramadol 50mg 1-2 po TID prn pain Follow Up: 2 months ICD-9 : 722.52 ICD-10 : M51.36 11/23/2016 Visit Diagnosis Plan: Essential tremor Discussion: Inc rease clonazepam to 1mg po BID Discussed sinemet ICD-9 : 333.1 ICD-10 : G25.0 11/23/2016 Appointment: Vonnie Mathews WPtel: [address] [place], [place] [phone] 11/22 confirmed~sl MEDICATION REVIEW 11/23/2016 Patient Education: Patient Medication Summary Completed 11/23/2016 Patient Education: [facility] [employer] - Clonazepam - 18-64 - Dynamic Portal ID Completed 11/23/2016 Appointment: Vonnie Mathews WPtel: [address] [place], [place] [phone] US INJECTION 06/28/2016 Patient Education: Patient Medication Summary Completed 06/28/2016 Referral: Fernando Day WPtel: #[facility] Shilpa Lopez [id number] [place] [id number] per Maribeth, the patient is [...] if worsening 05/23/2016 Appointment: Vonnie Mathews WPtel: [address] [place], [place] [phone] ER Follow UP 05/23/2016 Patient Education: Patient Medication Summary Completed 05/23/2016 Appointment: Vonnie Mathews WPtel: [address] [place], [place] [phone] LAB 05/19/2016 Patient Education: Patient Medication Summary Completed 05/19/2016 Visit Plan: Change coreg to 3.125mg BID Trial of low dose clonazepam 0.5mg BID for tremors Fwup with Dr. Ramsey as scheduled Return for fasting lab--CBC, CMP, TSH, free T4, Lipids, PSA, B12 Proceed with Colonoscopy 05/10/2016 Appointment: Vonnie Mathews WPtel: [address] [place], [place] [phone] 05/09 confirmed~sl Annual Well Visit 05/10/2016 Patient Education: Patient Medication Summary Completed 05/10/2016 Care Plan: Referral Order SNOMED-CT : 30 [id number] Pending 05/10/2016 Appointment: Vonnie Mathews WPtel: [address] [place] [address] US Rescheduled for 05/10/16 at 2PM~lb RESCHEDULED 04/26/2016 Referral: Danilo Ramsey WPtel: [phone] [id number] US Referral Initiated 04/29/2015 Appointment: Vonnie Mathews WPtel: [address] [place] [address] US LAB 04/05/2015 Patient Education: Patient Medication Summary Completed 04/05/2015 Visit Plan: Return in AM for fasting lab --CMP, lipids, CBC, TSH, PSA Change hydrocodone to oxycodone 7.5/325mg 1-2 po TID Schedule with cardiology Needs colonoscopy once cardiology evaluation complete Will need to restart chol meds after lab Recheck 1mo on pain meds 04/01/2015 Appointment: Vonnie Mathews WPtel: [address] [place], [place] [phone] 03/31 confirmed -mf PHYSICAL 04/01/2015 Patient Education: Patient Medication Summary Completed 04/01/2015 Appointment: Vonnie Mathews WPtel: [address] [place], [place] [phone] Annual Well Visit 09/23/2014 Visit Plan: Continue protonix Pt has fwu p with Card next month Rec chiropracter or PT for ribs/thoracics being out and could be contributing to chest pain 01/13/2014 Appointment: Vonnie Mathews WPtel: [address] [place], [place] [phone] FOLLOW UP 01/13/2014 Patient Education: Patient Medication Summary Completed 01/13/2014 Appointment: Ariella Mcnallyl: [phone] [facility] US FOLLOW UP 12/12/2013 Appointment: Malika Cárdenas WPtel: [phone] [facility] US PHYSICAL 12/12/2013 Appointment: Vonnie Mathews WPtel: [phone] [place] [address] ACUTE ILLNESS 02/20/2013 Appointment: Vonnie Mathews WPtel: [address] [place], [place] [phone] US LAB 07/19/2012 Patient Education: Patient Medication Summary Completed 07/19/2012 Appointment: Vonnie Mathews WPtel: [phone] [place] [address] FOLLOW UP 04/03/2012 Patient Education: Patient Medication Summary Completed 04/03/2012 Appointment: Vonnie Mathews WPtel: [phone] [place] [address] ACUTE ILLNESS 03/22/2012 Patient Education: Patient Medication Summary Completed 03/22/2012 Appointment: Vonnie Mathews WPtel: [address] [place], [place] [phone] FOLLOW UP 12/26/2011 Visit Plan: Add Cipro Continue current m eds 12/20/2011 Appointment: Vonnie Mathews WPtel: [address] [place], [place] [phone] ACUTE ILLNESS 12/20/2011 Patient Education: Patient Medication Summary Completed 12/20/2011 Visit Plan: Change neurontin to Cymbalta 30mg for 1wk then 60mg QD Add Propranolol for tremor 10/24/2011 Appointment: Vonnie Mathews WPtel: [address] [place], [place] [id number] ACUTE ILLNESS 10/24/2011 Appointment: Vonnie Mathews WPtel: [address] [place], [place] [phone] ACUTE ILLNESS 10/24/2011 Patient Education: Patient Medication Summary Completed 10/24/2011 Visit Plan: Continue current meds and fw up with Card as scheduled 03/13/2011 Appointment: Vonnie Mathews WPtel: [address] [place], [place] [phone] FOLLOW UP 03/13/2011 Patient Education: Patient Medication Summary Completed 03/13/2011 Visit Plan: Will obtain all records and lab from [place] Discussed will likely need heart cath which pt states that Card did talk to him about in the hospital 02/20/2011 Appointment: Vonnie Mathews WPtel: [address] [place], [place] [id number] ACUTE ILLNESS 02/20/2011 Patient Education: Patient Medication Summary Completed 02/20/2011 Visit Plan: Cont Pepcid and Prilosec See Card for cardiac cath. 02/23/2010 Appointment: Vonnie Mathews WPtel: [address] [place], [place] [phone] [place] FOLLOW UP 02/23/2010 Patient Education: Patient Medication Summary Completed 02/23/2010 Visit Plan: Increase Pamelor to 75mg qhs Increase Hydrocodone to 10/325mg 1-2 po q6 prn 01/12/2010 Appointment: Vonnie Mathews WPtel: [address] [place], [place] [phone] ACUTE ILLNESS 01/12/2010 Patient Education: Patient Medication Summary Completed 01/12/2010 Referral: Iván Pardo WPtel: [facility] [id number] [facility], [id number] Referral Initiated Referral: Fernando Day WPtel: #1 [id number] [place] Referral Completed Referral: Fernando Day WPtel: #1 [id number] [place] Referral Appointment Requested Instructions [...]
--- OUTSIDE RECORDS SUMMARY | 2020-02-10 08:14 | XMS REPORT | CCD ---
Author Author Nash Mathews D.O. Organization [facility] Address [address] [place] [address] Phone Care Team Providers Care Senior Budget Analyst Name Role Phone Vonine Mathews D.O., PP Unavailable CCM Unavailable Summary Purpose Interface Exchange Insurance Providers Payer name Policy type / Coverage type Covered green party ID Effective Begin Date Effective End Date [employer] MEDICARE Medicare Part B [id number] 2019 Unknown Family History Family History data not found Social History Social History Element Codes Description Effective Dates Marital status Unknown 10/24/[address]: 797831486 Nonsmoker 03/29/2011 Allergies, Adverse Reactions, Alerts Substance Reaction Codes Entered Date Inactivated Date Status _ Unknown 11/20/2017 No Inactive Date Active _ reaction, Unknown 11/23/2016 No Inactive Date Active Problems Condition Codes Effective Dates Condition Status Encounter for screening for malignant neoplasm of pros fung ICD-9: V76.44 ICD-10: Z12.5 02/26/2017 Active Essential (primary) hypertension ICD-9: 401.9 ICD-10: I10 02/26/2017 Active Mixed hyperlipidemia ICD-9: 272.4 ICD-10: E78.2 07/19/2012 Active Encounter for therapeutic drug level monitoring ICD-9: V58.83 ICD-10: Z51.81 04/25/2018 Active Essential tremor ICD-9: 333.1 ICD-10: G25.0 09/24/2019 Active Hemorrhage of anus and rectum ICD-9: [...] R63.4 08/21/2017 Active Atherosclerotic heart disease of [place] coronary arter y without angina pectoris ICD-9: [...] Start Date Stop Date Status Fill Instructions clonazepam 1 mg tablet RxNorm: 914612 TAKE 1 TABLET BY MOUTH EV SUSAN MORNING 12/19/2019 01/17/2020 Active clonazepam 1 mg tablet RxNorm: 918345 TAKE 1 TABLET BY MOUTH EV SUSAN MORNING 11/17/2019 12/16/2019 Inactive Tamiflu 75 mg capsule RxNorm: 634123 1 Capsule(s) Oral QD 11/03/2019 11/12/2019 Inactive Tamiflu 75 mg capsule RxNorm: 056543 1 Capsule(s) Oral QD 11/03/2019 11/02/2019 Inactive clonazepam 1 mg tablet RxNorm: 903625 TAKE 1 TABLET BY MOUTH EV SUSAN MORNING 10/16/2019 11/13/2019 Inactive pravastatin 20 mg tablet RxNorm: 162683 1 Tablet(s) Oral QD 020 04/06/2020 Active Singulair 10 mg tablet RxNorm: 773713 TAKE 1 TABLET BY MOUTH EV SUSAN DAY 10/10/2019 07/05/2020 Active Lyrica 75 mg capsule RxNorm: 280927 1 Capsule(s) Oral every nig ht at bedtime 10/09/2019 01/07/2020 Active clonazepam 1 mg tablet RxNorm: 467413 TAKE 1 TABLET BY MOUTH EV SUSAN AM 09/23/2019 10/15/2019 Inactive clonazepam 1 mg tablet RxNorm: 812928 TAKE 1 TABLET BY MOUTH EV SUSAN AM 08/21/2019 09/22/2019 Inactive Singulair 10 mg tablet RxNorm: 195774 TABLET(S) 1 TABLET(S) PO QD 1 10/09/2019 Inactive Flagyl 500 mg tablet RxNorm: 336581 1 Tablet(s) PO TID 05/26/2019 Inactive clonazepam 1 mg tablet RxNorm: 477221 TAKE 1 TABLET BY MOUTH EV SUSAN MORNING 05/23/2019 06/21/2019 Inactive pravastatin 20 mg tablet RxNorm: 560214 1 Tablet(s) PO QD 04/14/2019 10/09/2019 Inactive Needs updated fasting labs Singulair 10 mg tablet RxNorm: 674861 Tablet(s) 1 TABLET(S) PO QD 0 04/14/2019 07/12/2019 Inactive clonazepam 1 mg tablet RxNorm: 954217 1 Tablet(s) PO QAM 02/21/2019 0 05/23/2019 Inactive Bevespi Aerosphere 9 mcg-4.8 mcg HFA aerosol inhaler RxNorm: 3449517 2 Puff(s) INH BID 02/19/2019 No Stop Date Active ProAir HFA 90 mcg/actuation aerosol inhaler RxNorm: 895875 2 Puff(s) INH Q4H as needed 02/19/2019 09/24/2019 Inactive metoprolol tartrate 25 mg tablet RxNorm: 574837 1/2 Tablet(s) PO BI D 02/18/2019 05/18/2019 Inactive pravastatin 20 mg tablet RxNorm: 907235 1 Tablet(s) PO QD Needs updated fasting labs 01/13/2019 04/14/2019 Inactive Needs updated fa sting labs Singulair 10 mg tablet RxNorm: 873057 Tablet(s) 1 TABLET(S) PO QD 0 01/13/2019 04/12/2019 Inactive Plavix 75 mg tablet RxNorm: 428333 Tablet(s) 1 TABLET(S) PO QD 0404/201906/20/2019 Inactive [SAVINGS FOR NON-COVERED SHANDA GS -- BIN:906717, PCN: ASPROD1, Group: XXXXX, ID# [id number], Questions: . THIS IS NOT INSURANCE.] Singulair 10 mg tablet RxNorm: 432897 1 TABLET(S) PO QD 10/29/2018 Inactive primidone 50 mg tablet RxNorm: 835713 2 TABLET(S) PO BI D TAKE 2 TABLETS BY MOUTH EVERY NIGHT AT BEDTIME 10/07/2018 01/12/2019 Inactive Patient requests 90 days supply pravastatin 20 mg tablet RxNorm: 889559 1 TABLET(S) PO QD 09/23/2018 01/12/2019 Inactive clonazepam 1 mg tablet RxNorm: 010249 1 Tablet(s) PO QAM 09/19/2018 0 12/17/2018 Inactive primidone 50 mg tablet RxNorm: 908555 TABLET(S) TAKE 2 TABLETS BY MOUTH EVERY NIGHT AT BEDTIME 09/18/2018 01/12/2019 Inactive ciprofloxacin 0.2 % ear drops in a dropperette RxNorm: 44494 6 2 Drop(s) left otic (ear) BID 09/03/2018 09/09/2018 Inactive primidone 50 mg tablet RxNorm: 383464 2 Tablet(s) PO BI D TAKE 2 TABLETS BY MOUTH EVERY NIGHT AT BEDTIME 08/26/2018 10/06/2018 Inactive Ambien 5 mg tablet RxNorm: 089707 TAKE 1 TABLET BY MOUTH EVERY NIGHT AT BEDTIME 08/05/2018 09/03/2018 Inactive Singulair 10 mg tablet RxNorm: 330012 1 TABLET(S) PO QD 07/23/2018 Inactive clonazepam 1 mg tablet RxNorm: 522232 TAKE 1 TABLET BY MOUTH EV SUSAN MORNING 07/23/2018 08/21/2018 Inactive Plavix 75 mg tablet RxNorm: 863928 1 TABLET(S) PO QD 07/04/201812/22 Inactive [SAVINGS FOR NON-COVERED DRUGS -- BIN:5, PCN: ASPROD1, Group: XXXXX, ID# [id number], Questions: . THIS IS NOT INSURANCE.] clonazepam 1 mg tablet RxNorm: 050545 TAKE 1 TABLET BY MOUTH EV SUSAN MORNING 06/25/2018 07/23/2018 Inactive clonazepam 1 mg tablet RxNorm: 564413 TAKE 1 TABLET BY MOUTH EV SUSAN MORNING 05/23/2018 06/21/2018 Inactive primidone 50 mg tablet RxNorm: 845154 Tablet(s) TAKE 2 TABLETS BY MOUTH EVERY NIGHT AT BEDTIME 05/16/2018 08/25/2018 Inactive oxycodone-acetaminophen 7.5 mg-325 mg tablet RxNorm: 7524390 1-2 Tablet(s) PO TID as needed 04/25/2018 05/24/2018 Inactive Singulair 10 mg tablet RxNorm: 247844 1 Tablet(s) PO QD 04/25/2018 Inactive Medrol (Jose) 4 mg tablets in a dose pack RxNorm: 974375 Tablet(s) PO take as directed 04/25/2018 09/02/2018 Inactive clonazepam 1 mg tablet RxNorm: 844103 TAKE 1 TABLET BY MOUTH EV SUSAN MORNING 04/24/2018 05/22/2018 Inactive Plavix 75 mg tablet RxNorm: 599396 1 TABLET(S) PO QD 04/04/201807/02 Inactive [SAVINGS FOR NON-COVERED DRUGS -- BIN:3584, PCN: ASPROD1, Group: XXXXX, ID# [id number], Questions: . THIS IS NOT INSURANCE.] pravastatin 20 mg tablet RxNorm: 369460 1 Tablet(s) PO QD 03/21/2018 09/16/2018 Inactive ProAir HFA 90 mcg/actuation aerosol inhaler RxNorm: 674223 2 Puff(s) INH Q4H as needed 03/18/2018 03/17/2018 Inactive tamsulosin 0.4 mg capsule RxNorm: 915220 1 CAPSULE(S) PO QD 018 01/12/2019 Inactive clonazepam 1 mg tablet RxNorm: 637147 1 Tablet(s) PO QAM 02/25/2018 0 04/25/2018 Inactive tamsulosin 0.4 mg capsule RxNorm: 277485 1 Capsule(s) PO QD 018 03/13/2018 Inactive tamsulosin 0.4 mg capsule RxNorm: 703071 1 Capsule(s) PO QD 018 02/03/2018 Inactive tamsulosin 0.4 mg capsule RxNorm: 127113 1 Capsule(s) PO QD 018 02/12/2018 Inactive Ambien 5 mg tablet RxNorm: 834939 Tablet(s) TAKE 1 TAB LET BY MOUTH EVERY NIGHT AT BEDTIME 01/24/2018 08/05/2018 Inactive primidone 50 mg tablet RxNorm: 975661 Tablet(s) TAKE 2 TABLETS BY MOUTH EVERY NIGHT AT BEDTIME 01/18/2018 05/16/2018 Inactive cyclobenzaprine 10 mg tablet RxNorm: 250766 1 Tablet(s) PO TID as needed for muscle spasm 01/11/2018 02/09/2018 Inactive [SAVINGS FOR NON -COVERED DRUGS -- BIN:436444, PCN: ASPROD1, Group: XXXXX, ID# [id number], Questions: . THIS IS NOT INSURANCE.] clonazepam 1 mg tablet RxNorm: 035439 1 Tablet(s) PO QAM 12/24/2017 0 02/21/2018 Inactive prednisone 20 mg tablet RxNorm: 695666 1 Tablet(s) PO QD 11/06/2017 0 11/10/2017 Inactive EpiPen 2-Jose 0.3 mg/0.3 mL injection, auto-injector RxNorm: 669745 1 Unit Dose IM as needed 11/06/2017 09/24/2019 Inactive ProAir HFA 90 mcg/actuation aerosol inhaler RxNorm: 458763 2 Puff(s) INH Q4H as needed 10/30/2017 03/17/2018 Inactive primidone 50 mg tablet RxNorm: 235686 TAKE 2 TABLETS BY MOUTH EVERY NIGHT AT BEDTIME 10/15/2017 01/17/2018 Inactive Plavix 75 mg tablet RxNorm: 881266 1 Tablet(s) PO QD 10/01/201703/29 Inactive [SAVINGS FOR NON-COVERED DRUGS -- BIN:00 3585, PCN: ASPROD1, Group: XXXXX, ID# [id number], Questions: . THIS IS NOT INSURANCE.] clonazepam 1 mg tablet RxNorm: 600468 1 Tablet(s) PO QAM 09/19/2017 0 12/16/2017 Inactive primidone 50 mg tablet RxNorm: 381416 2 Tablet(s) PO QHS 08/29/2017 0 01/18/2018 Inactive oxycodone-acetaminophen 7.5 mg-325 mg tablet RxNorm: 8828754 1-2 Tablet(s) PO TID as needed 08/22/2017 09/19/2017 Inactive pravastatin 20 mg tablet RxNorm: 273281 1 Tablet(s) PO QD 08/21/2017 03/21/2018 Inactive carvedilol 3.125 mg tablet RxNorm: 387527 1 Tablet(s) P O BID to replace 6.25mg dose 08/21/2017 09/02/2017 Inactive primidone 50 mg tablet RxNorm: 300869 TAKE 2 TABLETS BY MOUTH EVERY NIGHT AT BEDTIME 06/18/2017 08/28/2017 Inactive clonazepam 1 mg tablet RxNorm: 404397 1 Tablet(s) PO QAM 06/04/2017 1 11/02/2016 Inactive Plavix 75 mg tablet RxNorm: 256801 1 Tablet(s) PO QD 04/10/201710/01 Inactive [SAVINGS FOR NON-COVERED DRUGS -- BIN:00 3585, PCN: ASPROD1, Group: XXXXX, ID# [id number], Questions: . THIS IS NOT INSURANCE.] pravastatin 20 mg tablet RxNorm: 799398 1 Tablet(s) PO QD 02/26/2017 08/24/2017 Inactive carvedilol 3.125 mg tablet RxNorm: 707128 1 Tablet(s) P O BID to replace 6.25mg dose 02/26/2017 08/21/2017 Inactive Ultram 50 mg tablet RxNorm: 402303 TAKE 1 TO 2 TABLETS BY MOUTH THREE TIMES DAILY NEEDED FOR PAIN 02/26/2017 03/07/2017 Inactive pravastatin 20 mg tablet RxNorm: 313272 1 Tablet(s) PO QD 02/26/2017 08/21/2017 Inactive carvedilol 3.125 mg tablet RxNorm: 486068 1 Tablet(s) P O BID to replace 6.25mg dose 02/26/2017 08/20/2017 Inactive clonazepam 0.5 mg tablet RxNorm: 138947 1 Tablet(s) PO QAM 02/14/20 17 02/13/2017 Inactive primidone 50 mg tablet RxNorm: 291517 1 Tablet(s) PO QHS 02/13/2017 0 05/01/2017 Inactive clonazepam 1 mg tablet RxNorm: 252927 1 Tablet(s) PO QAM 02/13/2017 0 05/13/2017 Inactive primidone 50 mg tablet RxNorm: 559783 1/2 Tablet(s) PO QD for 7 days then increase to 1 tablet at bedtime 01/09/2017 02/12/2017 Inactive pravastatin 20 mg tablet RxNorm: 541512 Tablet(s) 1 TABLET(S) PO QD 11/29/2016 02/25/2017 Inactive clonazepam 1 mg tablet RxNorm: 427579 1 Tablet(s) PO BID replac es 0.5mg dose 11/23/2016 01/08/2017 Inactive pravastatin 20 mg tablet RxNorm: 695410 1 TABLET(S) PO QD 11/17/2016 11/28/2016 Inactive Ambien 5 mg tablet RxNorm: 909832 TAKE 1 TABLET BY MOUTH EVERY NIGHT AT BEDTIME 11/17/2016 12/14/2016 Inactive clonazepam 0.5 mg tablet RxNorm: 750524 TAKE 1 TABLET BY MOUTH TWICE DAILY 11/17/2016 11/22/2016 Inactive Plavix 75 mg tablet RxNorm: 905134 1 Tablet(s) PO QD 11/06/201604/09 Inactive [SAVINGS FOR NON-COVERED DRUGS -- BIN:00 7995, PCN: ASPROD1, Group: XXXXX, ID# [id number], Questions: . THIS IS NOT INSURANCE.] Plavix 75 mg tablet RxNorm: 077485 1 Tablet(s) PO QD 08/28/201611/05 Inactive [SAVINGS FOR NON-COVERED DRUGS -- BIN: 3585, PCN: ASPROD1, Group: XXXXX, ID# [id number], Questions: . THIS IS NOT INSURANCE.] Lidoderm 5 % topical patch RxNorm: 5368774 Application T OP 2 patches for 12hrs then off for 12hrs 08/28/2016 08/27/2016 Inactive clonazepam 0.5 mg tablet RxNorm: 847454 1 Tablet(s) PO BID 08/07/20 16 11/22/2016 Inactive pravastatin 20 mg tablet RxNorm: 744475 1 Tablet(s) PO QD 08/07/2016 11/04/2016 Inactive cyclobenzaprine 10 mg tablet RxNorm: 551041 1 Tablet(s) PO TID as needed for muscle spasm 08/07/2016 09/05/2016 Inactive [SAVINGS FOR NON -COVERED DRUGS -- BIN:925507, PCN: ASPROD1, Group: XXXXX, ID# [id number], Questions: . THIS IS NOT INSURANCE.] Plavix 75 mg tablet RxNorm: 321282 1 Tablet(s) PO QD 08/07/201608/27 Inactive [SAVINGS FOR NON-COVERED DRUGS -- BIN: 3585, PCN: ASPROD1, Group: XXXXX, ID# [id number], Questions: . THIS IS NOT INSURANCE.] carvedilol 3.125 mg tablet RxNorm: 597804 1 Tablet(s) P O BID to replace 6.25mg dose 08/07/2016 02/02/2017 Inactive clonazepam 0.5 mg tablet RxNorm: 236479 1 Tablet(s) PO BID 07/04/20 16 08/07/2016 Inactive Plavix 75 mg tablet RxNorm: 037232 1 TABLET(S) PO QD 06/20/201608/06 Inactive [SAVINGS FOR NON-COVERED DRUGS -- BIN: 3585, PCN: ASPROD1, Group: XXXXX, ID# [id number], Questions: . THIS IS NOT INSURANCE.] clonazepam 0.5 mg tablet RxNorm: 890707 1 Tablet(s) PO BID 06/09/20 16 07/03/2016 Inactive pravastatin 20 mg tablet RxNorm: 620182 1 Tablet(s) PO QD 05/23/2016 08/06/2016 Inactive pravastatin 20 mg tablet RxNorm: 825414 1 Tablet(s) PO QD 05/23/2016 05/22/2016 Inactive carvedilol 3.125 mg tablet RxNorm: 059813 1 Tablet(s) P O BID to replace 6.25mg dose 05/10/2016 08/06/2016 Inactive carvedilol 3.125 mg tablet RxNorm: 894900 1 Tablet(s) P O BID to replace 6.25mg dose 05/10/2016 05/09/2016 Inactive clonazepam 0.5 mg tablet RxNorm: 986898 1 Tablet(s) PO BID 05/10/20 16 06/08/2016 Inactive carvedilol 6.25 mg tablet RxNorm: 006913 1 Tablet(s) PO QD 05/10/20 16 05/10/2016 Inactive simvastatin 40 mg tablet RxNorm: 616051 1 TABLET(S) PO QD 04/10/2016 05/09/2016 Inactive Medrol (Jose) 4 mg tablets in a dose pack RxNorm: 868064 Tablet(s) PO As Directed 01/13/2016 05/09/2016 Inactive cyclobenzaprine 10 mg tablet RxNorm: 668733 1 TABLET(S) PO TID NEEDED FOR SPASM 01/11/2016 03/10/2016 Inactive [SAVINGS FOR NON -COVERED DRUGS -- BIN:276714, PCN: ASPROD1, Group: XXXXX, ID# [id number], Questions: . THIS IS NOT INSURANCE.] Plavix 75 mg tablet RxNorm: 146125 1 Tablet(s) PO QD 12/30/201506/19 Inactive [SAVINGS FOR NON-COVERED DRUGS -- BIN:00 3585, PCN: ASPROD1, Group: XXXXX, ID# [id number], Questions: . THIS IS NOT INSURANCE.] Ambien 5 mg tablet RxNorm: 676455 TAKE 1 TABLET BY MOUTH EVERY DAY AT BEDTIME 11/15/2015 11/17/2016 Inactive simvastatin 40 mg tablet RxNorm: 444780 1 Tablet(s) PO QD 10/11/2015 01/12/2019 Inactive simvastatin 40 mg tablet RxNorm: 524469 1 Tablet(s) PO QD 10/08/2015 10/10/2015 Inactive Ambien 5 mg tablet RxNorm: 749373 TAKE 1 TABLET BY MOUTH EVERY NIGHT AT BEDTIME 07/27/2015 11/15/2015 Inactive Plavix 75 mg tablet RxNorm: 840682 1 Tablet(s) PO QD 06/28/201512/29 Inactive [SAVINGS FOR NON-COVERED DRUGS -- BIN:00 3585, PCN: ASPROD1, Group: XXXXX, ID# [id number], Questions: . THIS IS NOT INSURANCE.] Coreg 6.25 mg tablet RxNorm: 533154 1 TABLET(S) PO BID 04/19/2015 Inactive [SAVINGS FOR NON-COVERED DRUGS -- BIN:00 3585, PCN: ASPROD1, Group: XXXXX, ID# XXXXXXX, Questions: . THIS IS NOT INSURANCE.] simvastatin 40 mg tablet RxNorm: 633448 1 Tablet(s) PO QD 04/05/2015 04/04/2015 Inactive simvastatin 40 mg tablet RxNorm: 296687 1 Tablet(s) PO QD 04/05/2015 10/11/2015 Inactive Plavix 75 mg tablet RxNorm: 670477 1 TABLET(S) PO QD 03/22/201504/20 Inactive [SAVINGS FOR NON-COVERED DRUGS -- BIN:00 3585, PCN: ASPROD1, Group: XXXXX, ID# [id number], Questions: . THIS IS NOT INSURANCE.] Plavix 75 mg tablet RxNorm: 230296 1 Tablet(s) PO QD 03/22/201506/28 Inactive [SAVINGS FOR NON-COVERED DRUGS -- BIN:00 3585, PCN: ASPROD1, Group: XXXXX, ID# XXXXXXX, Questions: . THIS IS NOT INSURANCE.] Ambien 5 mg tablet RxNorm: 232833 1 Tablet(s) PO QHS 12/17/201407/28 Inactive [SAVINGS FOR NON-COVERED DRUGS -- BIN:00 3585, PCN: ASPROD1, Group: XXXXX, ID# XXXXXXX, Questions: . THIS IS NOT INSURANCE.] Coreg 6.25 mg tablet RxNorm: 871829 1 Tablet(s) PO BID 12/17/2014 Inactive [SAVINGS FOR NON-COVERED DRUGS -- BIN:00 3585, PCN: ASPROD1, Group: XXXXX, ID# XXXXXXX, Questions: . THIS IS NOT INSURANCE.] Plavix 75 mg tablet RxNorm: 603466 1 Tablet(s) PO QD 12/17/201403/16 Inactive [SAVINGS FOR NON-COVERED DRUGS -- BIN:00 3585, PCN: ASPROD1, Group: XXXXX, ID# XXXXXXX, Questions: . THIS IS NOT INSURANCE.] cyclobenzaprine 10 mg tablet RxNorm: 821703 1 Tablet(s) PO TID as needed for spasm 12/17/2014 03/16/2015 Inactive [SAVINGS FOR NON -COVERED DRUGS -- BIN:160383, PCN: ASPROD1, Group: XXXXX, ID# XXXXXXX, Questions: . THIS IS NOT INSURANCE.] Coreg 6.25 mg tablet RxNorm: 143635 1 Tablet(s) PO BID 10/21/201409/2014 Inactive [SAVINGS FOR NON-COVERED DRUGS -- BIN:00 3585, PCN: ASPROD1, Group: XXXXX, ID# XXXXXXX, Questions: . THIS IS NOT INSURANCE.] Plavix 75 mg tablet RxNorm: 374402 1 Tablet(s) PO QD 10/21/201412/16 Inactive [SAVINGS FOR NON-COVERED DRUGS -- BIN:00 3585, PCN: ASPROD1, Group: XXXXX, ID# XXXXXXX, Questions: . THIS IS NOT INSURANCE.] Plavix 75 mg tablet RxNorm: 967792 1 Tablet(s) PO QD Ne eds routine check up--last seen March 2012 09/21/2014 10/20/2014 Inactive [SAVINGS FOR UNINSURED PATIENTS -- BIN:646272, PCN: ASPROD1, Group: AME08, ID# [id number], Process claim through [employer], for questions: . THIS IS NOT INSURANCE.] Ambien 5 mg tablet RxNorm: 092450 1 Tablet(s) PO QHS 09/21/201412/16 Inactive [SAVINGS FOR UNINSURED PATIENTS -- BIN:0 30344, PCN: ASPROD1, Group: AME08, ID# [id number], Process claim through [employer], for questions: . THIS IS NOT INSURANCE.] Coreg 6.25 mg tablet RxNorm: 179601 1 Tablet(s) PO BID 09/21/201411/2014 Inactive [SAVINGS FOR UNINSURED PATIENTS -- BIN:0 70822, PCN: ASPROD1, Group: AME08, ID# [id number], Process claim through [employer], for questions: . THIS IS NOT INSURANCE.] Plavix 75 mg tablet RxNorm: 547653 1 Tablet(s) PO QD Ne eds routine check up--last seen March 2012 08/04/2014 09/02/2014 Inactive [SAVINGS FOR UNINSURED PATIENTS -- BIN:671077, PCN: ASPROD1, Group: AME08, ID# [id number], Process claim through [employer], for questions: . THIS IS NOT INSURANCE.] Plavix 75 mg tablet RxNorm: 186566 1 Tablet(s) PO QD Ne eds routine check up--last seen March 2012 08/03/2014 08/03/2014 Inactive Protonix 40 mg tablet,delayed release RxNorm: 857585 1 Tablet(s ) PO QD 06/08/2014 02/17/2019 Inactive [SAVINGS FOR UNINSUR ED PATIENTS -- BIN:710581, PCN: ASPROD1, Group: AME08, ID# [id number], Process claim through [employer], for questions: . THIS IS NOT INSURANCE.] hydrocodone 10 mg-acetaminophen 325 mg tablet RxNorm: 561347 1 Tablet(s) PO BID as needed for pain 02/18/2014 03/31/2015 Inactive Coreg 6.25 mg tablet RxNorm: 982714 1 Tablet(s) PO BID 02/02/2014 Inactive Protonix 40 mg granules delayed-release packet RxNorm: 376191 1 Tablet(s) PO QD 01/13/2014 06/08/2014 Inactive Plavix 75 mg tablet RxNorm: 534896 1 Tablet(s) PO QD Ne eds routine check up--last seen March 2012 01/13/2014 08/02/2014 Inactive Plavix 75 mg tablet RxNorm: 380385 1 Tablet(s) PO QD Ne eds routine check up--last seen March 2012 12/09/2013 01/07/2014 Inactive Coreg 6.25 mg tablet RxNorm: 022416 1 Tablet(s) PO BID 12/09/2013 Inactive Cymbalta 60 mg capsule,delayed release RxNorm: 216277 1 Capsule (s) PO QD 10/31/2013 01/12/2014 Inactive Coreg 6.25 mg tablet RxNorm: 296326 1 Tablet(s) PO BID 10/31/2013 Inactive Plavix 75 mg tablet RxNorm: 810582 1 Tablet(s) PO QD Ne eds routine check up--last seen March 2012 10/31/2013 11/29/2013 Inactive Coreg 6.25 mg tablet RxNorm: 359217 1 Tablet(s) PO BID 10/31/2013 Inactive atorvastatin 40 mg tablet RxNorm: 904309 1 Tablet(s) PO QD 10/31/1903/31/2015 Inactive Plavix 75 mg tablet RxNorm: 336146 1 Tablet(s) PO QD Ne eds routine check up--last seen March 2012 09/23/2013 10/30/2013 Inactive cyclobenzaprine 10 mg tablet RxNorm: 509493 1 Tablet(s) PO TID as needed for spasm 09/23/2013 No Stop Date Active cyclobenzaprine 10 mg tablet RxNorm: 527719 1 Tablet(s) PO TID as needed for spasm 07/04/2013 09/22/2013 Inactive atorvastatin 40 mg tablet RxNorm: 552757 1 Tablet(s) PO QD 06/23/20 13 10/30/2013 Inactive atorvastatin 40 mg tablet RxNorm: 687524 1 Tablet(s) PO QD 04/22/20 13 06/22/2013 Inactive Nucynta 50 mg tablet RxNorm: 083242 1-2 Tablet(s) PO Q6H as nee ded for pain 01/01/2013 01/12/2014 Inactive Ambien 5 mg tablet RxNorm: 630767 1 Tablet(s) PO QHS 10/16/201201/13 Inactive Plavix 75 mg tablet RxNorm: 949465 1 Tablet(s) PO QD 09/19/201209/13 Inactive Protonix 40 mg tablet,delayed release RxNorm: 321177 1 Tablet(s ) PO QD 09/19/2012 09/18/2012 Inactive simvastatin 40 mg tablet RxNorm: 114426 1 Tablet(s) PO QD 09/19/2012 02/23/2013 Inactive Protonix 40 mg tablet,delayed release RxNorm: 331528 1 Tablet(s ) PO QD 09/19/2012 09/13/2013 Inactive Ultram 50 mg tablet RxNorm: 489960 1-2 Tablet(s) PO QID as need ed for pain 09/19/2012 02/26/2017 Inactive propranolol 80 mg tablet RxNorm: 999204 1 Tablet(s) PO QHS 09/19/19 13 09/18/2012 Inactive Cymbalta 60 mg capsule,delayed release RxNorm: 835624 1 Capsule (s) PO QD 09/19/2012 09/18/2012 Inactive Cymbalta 60 mg capsule,delayed release RxNorm: 302966 1 Capsule (s) PO QD 09/19/2012 03/17/2013 Inactive propranolol 80 mg tablet RxNorm: 162634 1 Tablet(s) PO QHS 09/19/19 13 02/23/2013 Inactive hydrocodone-acetaminophen 10 mg-325 mg tablet RxNorm: 834796 2 1-2 Tablet(s) PO QID 07/25/2012 02/23/2013 Inactive Ambien 10 mg tablet RxNorm: 970429 1 Tablet(s) PO QHS as needed for sleep 07/10/2012 01/27/2013 Inactive propranolol 80 mg tablet RxNorm: 398097 1 Tablet(s) PO QHS 05/13/20 12 09/18/2012 Inactive hydrocodone-acetaminophen 10 mg-325 mg tablet RxNorm: 699476 2 1-2 Tablet(s) PO QID 05/02/2012 No Stop Date Active Restoril 15 mg Cap RxNorm: 366340 1-2 Capsule(s) PO QHS 05/02/2012 Inactive propranolol 80 mg tablet RxNorm: 141166 1 Tablet(s) PO QHS 05/02/2005/12/2012 Inactive Chantix Starting Month Box 0.5 mg (11)-1 mg (42) Tabs in a Dose Pack RxNorm: 694421 Tablet(s) PO As Directed 04/01/2012 01/27/2013 Inactive simvastatin 40 mg tablet RxNorm: 357469 1 Tablet(s) PO QD 03/28/2012 09/18/2012 Inactive simvastatin 40 mg Tab RxNorm: 175360 1 Tablet(s) PO QD 03/22/201207/2012 Inactive Effient 10 mg Tab RxNorm: 933850 1 Tablet(s) PO QD 03/22/2012 012 Inactive Prilosec 40 mg Capsule, delayed release RxNorm: 496791 1 Capsul e(s) PO QD 03/22/2012 09/18/2012 Inactive Prilosec 40 mg Capsule, delayed release RxNorm: 726730 1 Capsul e(s) PO QD 03/19/2012 03/21/2012 Inactive Cymbalta 60 mg capsule,delayed release RxNorm: 946850 1 Capsule (s) PO QD 03/04/2012 08/30/2012 Inactive hydrocodone-acetaminophen 10 mg-325 mg Tab RxNorm: 5013495 1-2 T ablet(s) PO QID 01/23/2012 No Stop Date Active Cymbalta 60 mg Capsule, delayed release RxNorm: 590829 1 Capsul e(s) PO QD 01/23/2012 03/03/2012 Inactive Cipro 500 mg Tab RxNorm: 042791 1 Tablet(s) PO BID 12/20/2011 012 Inactive Cymbalta 60 mg Capsule, delayed release RxNorm: 034524 1 Capsul e(s) PO QD 12/13/2011 01/22/2012 Inactive nortriptyline 75 mg Cap RxNorm: 937290 1 Capsule(s) PO QHS 11/29/1904/02/2012 Inactive Cymbalta 60 mg Cap RxNorm: 176919 1 Capsule(s) PO QD 10/24/201112/11 Inactive propranolol 80 mg Tab RxNorm: 037917 1 Tablet(s) PO QHS 10/24/2011 Inactive hydrocodone-acetaminophen 10 mg-325 mg Tab RxNorm: 1168130 1-2 T ablet(s) PO QID 09/29/2011 No Stop Date Active hydrocodone-acetaminophen 10 mg-325 mg Tab RxNorm: 9699535 1-2 T ablet(s) PO QID 07/25/2011 No Stop Date Active hydrocodone-acetaminophen 10 mg-325 mg Tab RxNorm: 6499187 1-2 T ablet(s) PO QID 02/14/2011 No Stop Date Active Prilosec 40 mg Cap RxNorm: 029025 1 Capsule(s) PO 01/03/2011 01/13/20 19 Inactive nortriptyline 75 mg Cap RxNorm: 604914 1 Capsule(s) PO QHS 01/04/20 11 07/01/2011 Inactive Neurontin 600 mg Tab RxNorm: 689808 1 Tablet(s) PO QHS 12/08/201011/2011 Inactive hydrocodone-acetaminophen 5 mg-500 mg Tab RxNorm: 057578 2 Tablet(s) PO Q4-6H prn 10/20/2010 01/08/2011 Inactive Diltzac ER 240 mg Cap RxNorm: 510962 1 Capsule(s) PO QD 07/14/2010 Inactive Nortriptyline 75 mg Cap RxNorm: 373091 1 Capsule(s) PO QHS 05/09/2001/12/2019 Inactive Neurontin 600 mg Tab RxNorm: 439477 1 Tablet(s) PO QD 03/17/201012/17 Inactive Nortriptyline 75 mg Cap RxNorm: 772146 1 Capsule(s) PO 01/12/2010 Inactive Nortriptyline 50 mg Cap RxNorm: 734112 1 Capsule(s) PO QHS 01/13/20 10 01/11/2010 Inactive Diltzac ER 240 mg Cap RxNorm: 234841 1 Capsule(s) PO QD 12/06/2009 Inactive aspirin 81 mg Tab RxNorm: 954162 1 Tablet(s) PO QD No Start Date Active Vitamin D3 2,000 unit tablet RxNorm: 974096 1 Tablet(s) PO QD No Star t Date Active zxlwnsvjm-[id number]-[id number] complex no.233 oral RxNorm: oral No Start Date Active primidone 50 mg tablet RxNorm: 695415 2 Tablet(s) PO BID No Start Date Active Prilosec 40 mg Capsule, delayed release RxNorm: 388405 1 Capsul e(s) PO QD No Start Date 03/18/2012 Inactive Prilosec 20 mg Cap RxNorm: 074901 1 Capsule(s) PO QHS No Start Date 0 01/02/2011 Inactive primidone 50 mg tablet RxNorm: 807772 1/2 Tablet(s) PO QHS for 1week then go full tab if needed No Start Date 05/01/2017 Inactive ProAir HFA 90 mcg/actuation aerosol inhaler RxNorm: 463004 2 Puff(s) INH Q4H as needed No Start Date 10/29/2017 Inactive clonazepam 0.5 mg tablet RxNorm: 397008 1/2 Tablet(s) PO BID No Sta rt Date 02/12/2017 Inactive Pepcid AC 10 mg Tab RxNorm: 408558 1 Tablet(s) PO QAM No Start Date 0 02/19/2011 Inactive Coreg Oral RxNorm: Oral No Start Date 01/12/2014 Inactive primidone 50 mg tablet RxNorm: 050530 1/2 Tablet(s) PO QD for 7 days then increase to 1 tablet at bedtime No Start Date 01/08/2017 Inactive Medrol (Jose) 4 mg tablets in a dose pack RxNorm: 427428 Tablet(s) PO As Directed No Start Date 01/12/2016 Inactive Plavix 75 mg tablet RxNorm: 177934 1 Tablet(s) PO QD No Start Date Inactive cyclobenzaprine 10 mg tablet RxNorm: 889317 1 Tablet(s) PO TID as needed for spasm No Start Date 07/03/2013 Inactive Bevespi Aerosphere 9 mcg-4.8 mcg HFA aerosol inhaler RxNorm: 5314080 2 Puff(s) INH BID No Start Date 02/18/2019 Inactive tramadol 50 mg tablet RxNorm: 505249 1-2 Tablet(s) PO TID as ne eded for pain No Start Date 01/12/2019 Inactive clonazepam 1 mg tablet RxNorm: 039397 1 Tablet(s) PO QAM No Start D ate 09/18/2018 Inactive hydrocodone-acetaminophen 5 mg-500 mg Tab RxNorm: 383506 2 Tablet(s) PO Q4-6H prn No Start Date 10/19/2010 Inactive lisinopril 20 mg Tab RxNorm: 172687 1/2 Tablet(s) PO QD No Start Da te 03/12/2011 Inactive Lyrica 75 mg capsule RxNorm: 248453 1 Capsule(s) PO QHS No Start Da te 10/08/2019 Inactive Protonix 40 mg tablet,delayed release RxNorm: 574970 1 Tablet(s ) PO QD No Start Date 06/07/2014 Inactive Lipitor Oral RxNorm: Oral No Start Date 01/12/2014 Inactive primidone 50 mg tablet RxNorm: 663635 2 Tablet(s) PO QAM and 1 tablet at HS No Start Date 02/17/2019 Inactive hydrocodone-acetaminophen 10 mg-325 mg Tab RxNorm: 7827382 1-2 T ablet(s) PO QID No Start Date 02/13/2011 Inactive Ultram 50 mg tablet RxNorm: 126292 1-2 Tablet(s) PO QID as need ed for pain No Start Date 09/18/2012 Inactive Effient 10 mg Tab RxNorm: 265104 1 Tablet(s) PO QD No Start Date 01/2012 Inactive Bevespi Aerosphere 9 mcg-4.8 mcg HFA aerosol inhaler RxNorm: 1413886 2 Puff(s) INH BID No Start Date 10/29/2017 Inactive Neurontin Oral RxNorm: Oral No Start Date 01/12/2010 Inactive primidone 50 mg tablet RxNorm: 132638 1 Tablet(s) PO QD No Start Da te 01/12/2019 Inactive Chantix Starting Month Box 0.5 mg (11)-1 mg (42) Tabs in a Dose Pack RxNorm: 990821 Tablet(s) PO No Start Date 03/31/2012 Inactive atenolol 25 mg Tab RxNorm: 162243 1 Tablet(s) PO QD No Start Date 02/2012 Inactive Neurontin 600 mg Tab RxNorm: 961920 1 Tablet(s) PO QD No Start Date 0 03/16/2010 Inactive Nucynta 50 mg tablet RxNorm: 331022 1-2 Tablet(s) PO Q6H as nee ded for pain No Start Date 12/31/2012 Inactive simvastatin 40 mg Tab RxNorm: 304206 1 Tablet(s) PO QD No Start Date 03/21/2012 Inactive Medication Administered No Medication Administered data Immunizations Vaccine Codes Date Status Influenza CVX: 135 07/04/2017 Complete Results Observation Observation Code Item Item Code Result Date S vice Location COMPLETE BLOOD COUNT [id number] WBC 4.9 10e9/L 09/30/19 20 Unknown COMPLETE BLOOD COUNT [id number] RBC 4.65 10e12/L 2019 Unknown COMPLETE BLOOD COUNT [id number] HEMOGLOBIN 13.8 g/dL 09/30/19 20 Unknown COMPLETE BLOOD COUNT [id number] HEMATOCRIT 42.3 % 09/30/19 20 Unknown COMPLETE BLOOD COUNT [id number] MCV 91.0 fL 0 Unknown COMPLETE BLOOD COUNT [id number] MCH 29.7 pg 0 Unknown COMPLETE BLOOD COUNT [id number] MCHC 32.6 g/dL 0 Unknown COMPLETE BLOOD COUNT [id number] PLATELET COUNT 230 10e9/L Unknown COMPLETE BLOOD COUNT 0924628 Mean Plt Volume 9.9 fL Unknown COMPLETE BLOOD COUNT [id number] Neut Auto 52.5 % 0 Unknown COMPLETE BLOOD COUNT [id number] Lymph Auto 30.8 % 09/30/19 20 Unknown COMPLETE BLOOD COUNT [id number] [place] Auto 11.2 % 0 Unknown COMPLETE BLOOD COUNT [id number] RDW 13.5 % 0 Unknown COMPLETE BLOOD COUNT [id number] Eos Auto 5.1 % 0 Unknown COMPLETE BLOOD COUNT [id number] Baso Auto 0.4 % 0 Unknown COMPLETE BLOOD COUNT [id number] Neutrophil Abs 2.57 10e9/L Unknown COMPLETE BLOOD COUNT [id number] Lymphocyte Abs 1.51 10e9/L Unknown COMPLETE BLOOD COUNT [id number] Monocyte Abs 0.55 10e9/L 09/17 Unknown COMPLETE BLOOD COUNT [id number] Eosinophil Abs 0.25 10e9/L Unknown COMPLETE BLOOD COUNT [id number] RDW-SD 43.9 fL 0 Unknown COMPLETE BLOOD COUNT [id number] Basophil Abs 0.02 10e9/L 09/17 Unknown GFR CALC [id number] GFR Non Afr Amr >60 mL/min 09/30/2019 Un known GFR CALC [id number] GFR Afr Amr >60 mL/min 09/30/2019 Unknow n THYROID STIMULATING HORMONE 42175 TSH 1.129 uIU/mL 09/30/2019 Unknown PSA EQUIMOLAR BARBIE 05494 PSA Total 0.77 ng/mL 0 Unknown [facility] 30099 Cholesterol 192 mg/dL 09/30/2019 Unkno wn [facility] 92277 Triglyceride 86 mg/dL 09/30/2019 Unkn own [facility] 37113 HDL CHOLESTEROL 64 mg/dL 09/30/2019 U nknown [facility] 66092 Chol/HDL Ratio 3.00 ratio 09/30/2019 U nknown [facility] 43098 NON-HDL Chol 128 mg/dL 09/30/2019 Unkn own [facility] 52899 LDL Cholesterol 111 mg/dL 09/30/2019 U nknown COMPREHENSIVE METABOLIC 03124 AST 17 U/L 2019 Unknown COMPREHENSIVE METABOLIC 61119 ALT 10 U/L 2019 Unknown COMPREHENSIVE METABOLIC 30130 BUN 13 mg/dL 2019 Unknown COMPREHENSIVE METABOLIC 25976 ALBUMIN 4.3 g/dL 2019 Unknown COMPREHENSIVE METABOLIC 05785 CHLORIDE 102 mmol/L 09/30 Unknown COMPREHENSIVE METABOLIC 77602 Bili Total 0.6 mg/dL 09/30 Unknown COMPREHENSIVE METABOLIC 54190 ALK PHOS 91 U/L 2019 Unknown COMPREHENSIVE METABOLIC 79851 SODIUM 138 mmol/L 09/30 Unknown COMPREHENSIVE METABOLIC 39636 CREATININE 1.09 mg/dL 09/17 Unknown COMPREHENSIVE METABOLIC 74645 CALCIUM 9.0 mg/dL 2019 Unknown COMPREHENSIVE METABOLIC 16181 POTASSIUM 4.5 mmol/L 09/30 Unknown COMPREHENSIVE METABOLIC 63908 Total Protein 6.8 g/dL Unknown COMPREHENSIVE METABOLIC 40902 Glucose 91 mg/dL 2019 Unknown COMPREHENSIVE METABOLIC 95411 Bicarbonate 28 mmol/L 09/17 Unknown COMPREHENSIVE METABOLIC 53832 AGAP 8 mmol/L 2019 Unknown COMPLETE BLOOD COUNT 8540001 WBC 4.9 10e9/L 09/04/20 18 Unknown COMPLETE BLOOD COUNT [id number] RBC 4.42 10e12/L 2017 Unknown COMPLETE BLOOD COUNT [id number] HEMOGLOBIN 13.4 g/dL 09/04/20 18 Unknown COMPLETE BLOOD COUNT 7323725 HEMATOCRIT 40.5 % 09/04/20 18 Unknown COMPLETE BLOOD COUNT [id number] MCV 91.6 fL 8 Unknown COMPLETE BLOOD COUNT 0503307 MCH 30.3 pg 8 Unknown COMPLETE BLOOD COUNT 8340587 MCHC 33.1 g/dL 8 Unknown COMPLETE BLOOD COUNT 3374871 PLATELET COUNT 224 10e9/L Unknown COMPLETE BLOOD COUNT 3990341 Mean Plt Volume 9.9 fL Unknown COMPLETE BLOOD COUNT [id number] Neut Auto 60.8 % 8 Unknown COMPLETE BLOOD COUNT [id number] Lymph Auto 26.8 % 09/04/20 18 Unknown COMPLETE BLOOD COUNT 1573013 [place] Auto 10.4 % 8 Unknown COMPLETE BLOOD COUNT 4392327 Eos Auto 1.6 % 8 Unknown COMPLETE BLOOD COUNT [id number] RDW 12.8 % 8 Unknown COMPLETE BLOOD COUNT 2942304 Baso Auto 0.4 % 8 Unknown COMPLETE BLOOD COUNT 2241213 Neutrophil Abs 2.98 10e9/L Unknown COMPLETE BLOOD COUNT [id number] Lymphocyte Abs 1.31 10e9/L Unknown COMPLETE BLOOD COUNT 1143551 Monocyte Abs 0.51 10e9/L 08/17 Unknown COMPLETE BLOOD COUNT [id number] Eosinophil Abs 0.08 10e9/L Unknown COMPLETE BLOOD COUNT [id number] RDW-SD 41.6 fL 8 Unknown COMPLETE BLOOD COUNT [id number] Basophil Abs 0.02 10e9/L 08/17 Unknown COMPREHENSIVE METABOLIC 53735 AST 16 U/L 2017 Unknown COMPREHENSIVE METABOLIC 73250 ALT 8 U/L 2017 Unknown COMPREHENSIVE METABOLIC 68391 BUN 12 mg/dL 2017 Unknown COMPREHENSIVE METABOLIC 78531 ALBUMIN 4.4 g/dL 2017 Unknown COMPREHENSIVE METABOLIC 14069 CHLORIDE 107 mmol/L 09/04 Unknown COMPREHENSIVE METABOLIC 17910 Bili Total 1.0 mg/dL 09/04 Unknown COMPREHENSIVE METABOLIC 65402 ALK PHOS 58 U/L 2017 Unknown COMPREHENSIVE METABOLIC 26853 SODIUM 142 mmol/L 09/04 Unknown COMPREHENSIVE METABOLIC 81635 CREATININE 0.97 mg/dL 08/17 Unknown COMPREHENSIVE METABOLIC 01283 CALCIUM 9.2 mg/dL 2017 Unknown COMPREHENSIVE METABOLIC 76924 POTASSIUM 4.6 mmol/L 09/04 Unknown COMPREHENSIVE METABOLIC 68789 Total Protein 6.5 g/dL Unknown COMPREHENSIVE METABOLIC 46913 Glucose 96 mg/dL 2017 Unknown COMPREHENSIVE METABOLIC 00810 Bicarbonate 29 mmol/L 08/17 Unknown COMPREHENSIVE METABOLIC 55366 AGAP 6 mmol/L 2017 Unknown LIP[facility] GROUP 33330 Cholesterol 182 mg/dL 09/04/2018 Unkno wn LIP[facility] GROUP 59477 Triglyceride 84 mg/dL 09/04/2018 Unkn own L[facility] GROUP 84780 HDL CHOLESTEROL 76 mg/dL 09/04/2018 U nknown L[facility] GROUP 76056 Chol/HDL Ratio 2.39 ratio 09/04/2018 U nknown L[facility] GROUP 09282 NON-HDL Chol 106 mg/dL 09/04/2018 Unkn own L[facility] GROUP 28167 LDL Cholesterol 89 mg/dL 09/04/2018 U nknown GFR CALC 3577510 GFR Non Afr Amr >60 mL/min 09/04/2018 Un known GFR CALC 1225122 GFR Afr Amr >60 mL/min 09/04/2018 Unknow n THYROID STIMULATING HORMONE 70683 TSH 0.713 uIU/mL 09/04/2018 Unknown PSA EQUIMOLAR BARBIE 59601 PSA Total 0.66 ng/mL 8 Unknown A FOOD C P 1980284 [place] Cl Class 0 11/17/2017 Unknown A FOOD C P 2208266 [place] Ct <0.35 kU/L 11/17/2017 Unknow n A FOOD C P 8882743 [place] Cl Class 0 11/17/2017 Unkn own A FOOD C P [id number] [place] Ct <0.35 kU/L 11/17/2017 Unk nown A FOOD C P 6456330 [place] White Cl Class 0 11/17/2017 Unkno wn A FOOD C P 8534501 Egg White Ct <0.35 kU/L 11/17/2017 Unkn own A FOOD C P 8467341 Egg Yolk Cl Class 0 11/17/2017 Unknow n A FOOD C P 6602285 Egg Yolk Ct <0.35 kU/L 11/17/2017 Unkno wn A FOOD C P 2512928 Cow Milk Cl Class 0 11/17/2017 Unknow n A FOOD C P 5559419 Cow Milk Ct <0.35 kU/L 11/17/2017 Unkno wn A FOOD C P 1253682 Peanut Cl Class 0 11/17/2017 Unknown A FOOD C P 9132017 Peanut Ct <0.35 kU/L 11/17/2017 Unknown A FOOD C P 4998361 Shrimp Cl Class 0 11/17/2017 Unknown A FOOD C P 6465111 Shrimp Ct <0.35 kU/L 11/17/2017 Unknown A FOOD C P 1458839 [place] Cl Class 0 11/17/2017 Unknown A FOOD C P 7561455 [place] Ct <0.35 kU/L 11/17/2017 Unknow n A FOOD C P 9864323 Wheat Cl Class 0 11/17/2017 Unknown A FOOD C P 4696339 Wheat Ct <0.35 kU/L 11/17/2017 Unknown A FOOD C P 1630473 Potato Cl Class 0 11/17/2017 Unknown A FOOD C P 9460686 Potato Ct <0.35 kU/L 11/17/2017 Unknown A FOOD C P 0679450 Beef Cl Class 2 11/17/2017 Unknown A FOOD C P 4986184 Beef Ct 0.88 kU/L 11/17/2017 Unknown A FOOD C P 4747358 [place] Cl Class 0 11/17/2017 Unknown A FOOD C P 8581657 Golden Ct <0.35 kU/L 11/17/2017 Unknown A FOOD C P 5631564 Pork Cl Class 0 11/17/2017 Unknown A FOOD C P [id number] Pork Ct <0.35 kU/L 11/17/2017 Unknown A FOOD C P [id number] [place] Cl Class 0 11/17/2017 Unknown A FOOD C P [id number] [place] Ct <0.35 kU/L 11/17/2017 Unknown A FOOD C P 7099889 [place] Cl Class 0 11/17/2017 Unkn own A FOOD C P [id number] [place] Ct <0.35 kU/L 11/17/2017 Unk nown A FOOD C P [id number] [place] Cl Class 0 11/17/2017 Unknown A FOOD C P 1505743 Tomato Ct <0.35 kU/L 11/17/2017 Unknown A FOOD C P 0030766 Tuna Cl Class 0 11/17/2017 Unknown A FOOD C P 3194081 Tuna Ct <0.35 kU/L 11/17/2017 Unknown A FOOD C P 7845681 Calcium CL Class 0 11/17/2017 Unknown A FOOD C P 5622900 Calcium CT <0.35 kU/L 11/17/2017 Unknown A FOOD C P 6569624 Casein Cl Class 0 11/17/2017 Unknown A FOOD C P 4922978 Casein Ct <0.35 kU/L 11/17/2017 Unknown A FOOD C P 6662130 Oat Cl Class 0 11/17/2017 Unknown A FOOD C P 3185940 Oat Ct <0.35 kU/L 11/17/2017 Unknown A FOOD C P 6853553 [place] Cl Class 0 11/17/2017 Unknown A FOOD C P 2582148 [place] Ct <0.35 kU/L 11/17/2017 Unknown A FOOD C P 1923494 [place] Meat CL Class 0 11/17/2017 Un known A FOOD C P 3654281 [place] Meat Ct <0.35 kU/L 11/17/2017 U nknown A FOOD C P 9813907 [place] Cl Class 0 11/17/2017 Unknown A FOOD C P 5737653 [place] Ct <0.35 kU/L 11/17/2017 Unknown A FOOD C P [id number] P[place] Meat Cl Class 0 11/17/2017 Unkn own A FOOD C P [id number] [place]ec[place] Meat Ct <0.35 kU/L 11/17/2017 Unk nown A NUTS PNL 9873096 Peanut Cl Class 0 11/17/2017 Unknown A NUTS PNL 7748054 Peanut Ct <0.35 kU/L 11/17/2017 Unknown A NUTS PNL 0570862 [place] Meat Cl Class 0 11/17/2017 Unk nown A NUTS PNL 0363911 [place] Ct <0.35 kU/L 11/17/2017 Un known A NUTS PNL 0785036 [place] Meat Cl Class 0 11/17/2017 Unkn own A NUTS PNL 3360009 [place] Ct <0.35 kU/L 11/17/2017 Unk nown A NUTS PNL 7313741 [place] Cl Class 0 11/17/2017 Unknown A NUTS PNL 6645110 [place] Ct <0.35 kU/L 11/17/2017 Unknown A NUTS PNL 6605816 [place] Cl Class 0 11/17/2017 Unknow n A NUTS PNL 1796273 [place] Ct <0.35 kU/L 11/17/2017 Unkno wn A NUTS PNL 6654036 [place] Cl Class 0 11/17/2017 Unkno wn A NUTS PNL 2808518 [place] Ct <0.35 kU/L 11/17/2017 Unkn own A NUTS PNL 2254864 [place] Cl Class 0 11/17/2017 Unknown A NUTS PNL 0485496 [place] Ct <0.35 kU/L 11/17/2017 Unknown A NUTS PNL 4225553 [place] Cl Class 0 11/17/2017 Unkno wn A NUTS PNL 1398897 [place] Ct <0.35 kU/L 11/17/2017 Unkn own A NUTS PNL 9070516 Allergen Interp See Note 11/17/2017 Un known A FRT/VG P [id number] [place] Cl Class 0 11/17/2017 Unkn own A FRT/VG P [id number] [place] Ct <0.35 kU/L 11/17/2017 Unk nown A FRT/VG P [id number] [place] Cl Class 0 11/17/2017 Unknown A FRT/VG P [id number] [place] Ct <0.35 kU/L 11/17/2017 Unknown A FRT/VG P [id number] [place] Cl Class 0 11/17/2017 Unkn own A FRT/VG P [id number] [place] [facility] <0.35 kU/L 11/17/2017 Unk nown A FRT/VG P 7771243 [place] Cl Class 0 11/17/2017 Unknown A FRT/VG P [id number] [place] Ct <0.35 kU/L 11/17/2017 Unknown A FRT/VG P 3320355 [place] Cl Class 0 11/17/2017 Unknown A FRT/VG P 3457200 [place] Ct <0.35 kU/L 11/17/2017 Unknown A FRT/VG P 1086764 [place] Cl Class 1 11/17/2017 Unknown A FRT/VG P 9371229 [place] Ct 0.48 kU/L 11/17/2017 Unknown A FRT/VG P 3112562 [place] Fruit Cl Class 0 11/17/2017 Unk nown A FRT/VG P 0396061 [place] Ct <0.35 kU/L 11/17/2017 Un known A FRT/VG P 7997067 [place] Cl Class 0 11/17/2017 Unk nown A FRT/VG P 7446677 [place] Ct <0.35 kU/L 11/17/2017 Un known A FRT/VG P [id number] [place] Cl Class 0 11/17/2017 Unknown A FRT/VG P 8837213 [place] Ct <0.35 kU/L 11/17/2017 Unknown A FRT/VG P 2284056 [place] Cl Class 0 11/17/2017 Unknown A FRT/VG P 7404748 [place]a Ct <0.35 kU/L 11/17/2017 Unknown A FRT/VG P 4386840 [place] Cl Class 0 11/17/2017 Unkn own A FRT/VG P 1527988 [place] Ct <0.35 kU/L 11/17/2017 Unk nown A FRT/VG P 4955455 [place]t [place] Cl Class 0 11/17/2017 Unkn own A FRT/VG P 1432628 Swt [place] Ct <0.35 kU/L 11/17/2017 Unk nown THYROID STIMULATING HORMONE 09343 TSH 1.371 uIU/mL 09/03/2017 Unknown FREE T4 83293 T4 Free 1.26 ng/dL 09/03/2017 Unknown ASSAY TRIIODOTHYRONINE (T3) 82188 T3 Total 0.9 ng/mL Unknown COMPLETE BLOOD COUNT [id number] WBC 5.9 10e9/L 07/31/20 17 Unknown COMPLETE BLOOD COUNT [id number] RBC 4.64 10e12/L 2016 Unknown COMPLETE BLOOD COUNT 1569730 HEMOGLOBIN 14.2 g/dL 07/31/20 17 Unknown COMPLETE BLOOD COUNT 9604981 HEMATOCRIT 42.1 % 07/31/20 17 Unknown COMPLETE BLOOD COUNT 9436477 MCV 90.7 fL 7 Unknown COMPLETE BLOOD COUNT 1185725 MCH 30.6 pg 7 Unknown COMPLETE BLOOD COUNT 7370528 MCHC 33.7 g/dL 7 Unknown COMPLETE BLOOD COUNT 7864728 PLATELET COUNT 195 10e9/L Unknown COMPLETE BLOOD COUNT 8414816 Mean Plt Volume 10.0 fL Unknown COMPLETE BLOOD COUNT 2578327 Neut Auto 47.5 % 7 Unknown COMPLETE BLOOD COUNT 0398539 Lymph Auto 37.4 % 07/31/20 17 Unknown COMPLETE BLOOD COUNT 8878842 [place] Auto 11.7 % 7 Unknown COMPLETE BLOOD COUNT 1796706 RDW 12.8 % 7 Unknown COMPLETE BLOOD COUNT 1089775 Eos Auto 3.2 % 7 Unknown COMPLETE BLOOD COUNT 8142687 Baso Auto 0.2 % 7 Unknown COMPLETE BLOOD COUNT 7046623 Neutrophil Abs 2.80 10e9/L Unknown COMPLETE BLOOD COUNT 8197643 Lymphocyte Abs 2.21 10e9/L Unknown COMPLETE BLOOD COUNT 6509578 Monocyte Abs 0.69 10e9/L 07/18 Unknown COMPLETE BLOOD COUNT [id number] Eosinophil Abs 0.19 10e9/L Unknown COMPLETE BLOOD COUNT 2596121 Basophil Abs 0.01 10e9/L 07/18 Unknown COMPLETE BLOOD COUNT 2435229 RDW-SD 41.6 fL 7 Unknown LIPID GROUP 68542 Cholesterol 186 mg/dL 07/31/2017 Unkno wn LIPID GROUP 45831 Triglyceride 129 mg/dL 07/31/2017 Unkn own LIPID GROUP 69639 HDL CHOLESTEROL 79 mg/dL 07/31/2017 U nknown LIP[facility] GROUP 08322 Chol/HDL Ratio 2.35 ratio 07/31/2017 U nknown LIPID GROUP 41966 NON-HDL Chol 107 mg/dL 07/31/2017 Unkn own LIPID GROUP 40148 LDL Cholesterol 81 mg/dL 07/31/2017 U nknown GFR CALC 1394964 GFR Afr Amr >60 mL/min 07/31/2017 Unknow n GFR CALC 6036839 GFR Non Afr Amr >60 mL/min 07/31/2017 Un known COMPREHENSIVE METABOLIC 11890 AST 19 U/L 2016 Unknown COMPREHENSIVE METABOLIC 70987 ALT 12 U/L 2016 Unknown COMPREHENSIVE METABOLIC 48283 BUN 15 mg/dL 2016 Unknown COMPREHENSIVE METABOLIC 13602 ALBUMIN 4.4 g/dL 2016 Unknown COMPREHENSIVE METABOLIC 67082 CHLORIDE 102 mmol/L 07/31 Unknown COMPREHENSIVE METABOLIC 12576 Bili Total 0.9 mg/dL 07/31 Unknown COMPREHENSIVE METABOLIC 10252 ALK PHOS 53 U/L 2016 Unknown COMPREHENSIVE METABOLIC 13436 SODIUM 138 mmol/L 07/31 Unknown COMPREHENSIVE METABOLIC 39998 CREATININE 1.06 mg/dL 07/18 Unknown COMPREHENSIVE METABOLIC 22759 CALCIUM 9.3 mg/dL 2016 Unknown COMPREHENSIVE METABOLIC 67934 POTASSIUM 4.0 mmol/L 07/31 Unknown COMPREHENSIVE METABOLIC 94230 Total Protein 6.8 g/dL Unknown COMPREHENSIVE METABOLIC 37320 Glucose 86 mg/dL 2016 Unknown COMPREHENSIVE METABOLIC 68481 Bicarbonate 28 mmol/L 07/18 Unknown COMPREHENSIVE METABOLIC 31228 AGAP 8 mmol/L 2016 Unknown COMPREHENSIVE METABOLIC 76686 AST 18 U/L 2015 Unknown COMPREHENSIVE METABOLIC 12866 ALT 9 U/L 2015 Unknown COMPREHENSIVE METABOLIC 88445 BUN 11 mg/dL 2015 Unknown COMPREHENSIVE METABOLIC 97939 ALBUMIN 4.2 g/dL 2015 Unknown COMPREHENSIVE METABOLIC 26002 CHLORIDE 104 mmol/L 05/19 Unknown COMPREHENSIVE METABOLIC 12424 Bili Total 1.2 mg/dL 05/19 Unknown COMPREHENSIVE METABOLIC 87647 ALK PHOS 54 U/L 2015 Unknown COMPREHENSIVE METABOLIC 49190 SODIUM 140 mmol/L 05/19 Unknown COMPREHENSIVE METABOLIC 71042 CREATININE 1.03 mg/dL 10/2015 Unknown COMPREHENSIVE METABOLIC 08144 CALCIUM 9.3 mg/dL 2015 Unknown COMPREHENSIVE METABOLIC 64937 POTASSIUM 4.9 mmol/L 05/19 Unknown COMPREHENSIVE METABOLIC 62112 Total Protein 6.7 g/dL Unknown COMPREHENSIVE METABOLIC 67241 Glucose 92 mg/dL 2015 Unknown COMPREHENSIVE METABOLIC 47220 Bicarbonate 28 mmol/L 10/2015 Unknown COMPREHENSIVE METABOLIC 61589 AGAP 8 mmol/L 2015 Unknown THYROID STIMULATING HORMONE 91663 TSH 1.545 uIU/mL 05/19/2016 Unknown GFR CALC 8119971 GFR Non Afr Amr >60 mL/min 05/19/2016 Un known GFR CALC 4010760 GFR Afr Amr >60 mL/min 05/19/2016 Unknow n VITAMIN B 12 09684 VITAMIN B12 298 pg/mL 05/19/2016 Unkn own COMPLETE BLOOD COUNT [id number] WBC 5.2 10e9/L 05/19/20 16 Unknown COMPLETE BLOOD COUNT [id number] RBC 4.34 10e12/L 2015 Unknown COMPLETE BLOOD COUNT [id number] HEMOGLOBIN 12.9 g/dL 05/19/20 16 Unknown COMPLETE BLOOD COUNT [id number] HEMATOCRIT 38.9 % 05/19/20 16 Unknown COMPLETE BLOOD COUNT 9951265 MCV 89.6 fL 6 Unknown COMPLETE BLOOD COUNT 6668099 MCH 29.7 pg 6 Unknown COMPLETE BLOOD COUNT 8866877 MCHC 33.2 g/dL 6 Unknown COMPLETE BLOOD COUNT 3645105 PLATELET COUNT 200 10e9/L 10/2015 Unknown COMPLETE BLOOD COUNT 3071875 Mean Plt Volume 10.1 fL 10/2015 Unknown COMPLETE BLOOD COUNT 8005688 Neut Auto 45.4 % 6 Unknown COMPLETE BLOOD COUNT 4629881 Lymph Auto 35.6 % 05/19/20 16 Unknown COMPLETE BLOOD COUNT 9711539 [place] Auto 11.9 % 6 Unknown COMPLETE BLOOD COUNT 8213157 Eos Auto 6.7 % 6 Unknown COMPLETE BLOOD COUNT 0356587 RDW 12.7 % 6 Unknown COMPLETE BLOOD COUNT 4054860 Baso Auto 0.4 % 6 Unknown COMPLETE BLOOD COUNT [id number] Neutrophil Abs 2.36 10e9/L Unknown COMPLETE BLOOD COUNT [id number] Lymphocyte Abs 1.85 10e9/L Unknown COMPLETE BLOOD COUNT 3887774 Monocyte Abs 0.62 10e9/L 10/2015 Unknown COMPLETE BLOOD COUNT 0794253 Eosinophil Abs 0.35 10e9/L Unknown COMPLETE BLOOD COUNT [id number] Basophil Abs 0.02 10e9/L 10/2015 Unknown COMPLETE BLOOD COUNT 8479849 RDW-SD 40.6 fL 6 Unknown LIPID GROUP 69985 Cholesterol 197 mg/dL 05/19/2016 Unkno wn LIPID GROUP 78973 Triglyceride 92 mg/dL 05/19/2016 Unkn own LIPID GROUP 22226 HDL CHOLESTEROL 58 mg/dL 05/19/2016 U nknown LIPID GROUP 37100 Chol/HDL Ratio 3.40 ratio 05/19/2016 U nknown LIPID GROUP 67996 NON-HDL Chol 139 mg/dL 05/19/2016 Unkn own LIPID GROUP 69518 LDL Cholesterol 121 mg/dL 05/19/2016 U nknown FREE T4 59465 T4 Free 1.19 ng/dL 05/19/2016 Unknown COMPREHENSIVE METABOLIC 41238 AST 19 U/L 2014 Unknown COMPREHENSIVE METABOLIC 44147 ALT 10 IU/L 2014 Unknown COMPREHENSIVE METABOLIC 14182 BUN 20 MG/DL 2014 Unknown COMPREHENSIVE METABOLIC 47794 ALBUMIN 4.4 GM/DL 2014 Unknown COMPREHENSIVE METABOLIC 89892 CHLORIDE 104 MMOL/L 04/05 Unknown COMPREHENSIVE METABOLIC 07253 BILI TOT 2.2 MG/DL 2014 Unknown COMPREHENSIVE METABOLIC 72015 ALK PHOS 55 U/L 2014 Unknown COMPREHENSIVE METABOLIC 07985 SODIUM 138 MMOL/L 04/05 Unknown COMPREHENSIVE METABOLIC 10291 CREATININE 1.04 MG/DL 03/18 Unknown COMPREHENSIVE METABOLIC 01714 CALCIUM 9.3 MG/DL 2014 Unknown COMPREHENSIVE METABOLIC 00441 POTASSIUM 4.5 MMOL/L 04/05 Unknown COMPREHENSIVE METABOLIC 93233 PROT TOT 6.7 GM/DL 2014 Unknown COMPREHENSIVE METABOLIC 46675 Glucose 77 MG/DL 2014 Unknown COMPREHENSIVE METABOLIC 54845 BICARB 25 MMOL/L 2014 Unknown COMPREHENSIVE METABOLIC 72123 ANION GAP 9 MEQ/L 2014 Unknown GFR CALC 0984896 GFR AA >60 ML/MIN 04/05/2015 Unknown GFR CALC 7271132 GFR NON-AA >60 ML/MIN 04/05/2015 Unknown LIPID GROUP 92624 HDL TEST 60 MG/DL 04/05/2015 Unknown LIPID GROUP 17693 TRIG 70 MG/DL 04/05/2015 Unknown LIPID GROUP 57512 TEST LDL 137 MG/DL 04/05/2015 Unknown LIPID GROUP 80830 CHOL 211 MG/DL 04/05/2015 Unknown LIPID GROUP 71914 RCHOL/HDL 3.52 RATIO 04/05/2015 Unknow n LIPID GROUP 00930 NON-HDL CH 151 MG/DL 04/05/2015 Unknow n COMPLETE BLOOD COUNT [id number] WBC 5.3 10e9/L 04/05/20 15 Unknown COMPLETE BLOOD COUNT [id number] RBC 4.42 10e12/L 2014 Unknown COMPLETE BLOOD COUNT 4270285 HGB 13.4 g/dL 5 Unknown COMPLETE BLOOD COUNT 2546979 HCT DET 39.6 % 5 Unknown COMPLETE BLOOD COUNT 0835972 MCV 89.6 fL 5 Unknown COMPLETE BLOOD COUNT 2065858 MCH 30.3 pg 5 Unknown COMPLETE BLOOD COUNT 9307544 MCHC 33.8 g/dL 5 Unknown COMPLETE BLOOD COUNT 4848827 PLT 201 10e9/L 04/05/20 15 Unknown COMPLETE BLOOD COUNT 6723375 MPV 10.3 fL 5 Unknown COMPLETE BLOOD COUNT 0144242 LUPE % 56.4 % 5 Unknown COMPLETE BLOOD COUNT 1800220 LY % 24.8 % 5 Unknown COMPLETE BLOOD COUNT [id number] MON % 12.8 % 5 Unknown COMPLETE BLOOD COUNT [id number] EOS % 5.4 % 5 Unknown COMPLETE BLOOD COUNT [id number] BASO % 0.6 % 5 Unknown COMPLETE BLOOD COUNT [id number] RDW 13.2 % 5 Unknown COMPLETE BLOOD COUNT [id number] ABS LUPE 2.99 10e9/L 015 Unknown COMPLETE BLOOD COUNT [id number] ABS LYMPH 1.31 10e9/L 015 Unknown COMPLETE BLOOD COUNT [id number] ABS MONO 0.68 10e9/L 015 Unknown COMPLETE BLOOD COUNT [id number] ABS EOS 0.29 10e9/L 015 Unknown COMPLETE BLOOD COUNT [id number] ABS BASO 0.03 10e9/L 015 Unknown COMPLETE BLOOD COUNT [id number] RDW-SD 42.3 fL 5 Unknown LIPID GROUP 71697 HDL TEST 51 MG/DL 07/19/2012 Unknown LIPID GROUP 76649 TRIG 129 MG/DL 07/19/2012 Unknown LIPID GROUP 90506 TEST LDL 98 MG/DL 07/19/2012 Unknown LIPID GROUP 58114 CHOL 175 MG/DL 07/19/2012 Unknown LIPID GROUP 65409 RCHOL/HDL 3.43 RATIO 07/19/2012 Unknow n COMPREHENSIVE METABOLIC 42603 AST 18 U/L 2011 Unknown COMPREHENSIVE METABOLIC 81360 ALT 12 IU/L 2011 Unknown COMPREHENSIVE METABOLIC 41709 BUN 10 MG/DL 2011 Unknown COMPREHENSIVE METABOLIC 41700 ALBUMIN 4.1 GM/DL 2011 Unknown COMPREHENSIVE METABOLIC 75094 CHLORIDE 103 MMOL/L 07/19 Unknown COMPREHENSIVE METABOLIC 71619 BILI TOT 0.9 MG/DL 2011 Unknown COMPREHENSIVE METABOLIC 79118 ALK PHOS 62 U/L 2011 Unknown COMPREHENSIVE METABOLIC 98363 SODIUM 138 MMOL/L 07/19 Unknown COMPREHENSIVE METABOLIC 67377 CREATININE 1.08 MG/DL 10/2011 Unknown COMPREHENSIVE METABOLIC 49364 CALCIUM 9.1 MG/DL 2011 Unknown COMPREHENSIVE METABOLIC 60905 POTASSIUM 4.2 MMOL/L 07/19 Unknown COMPREHENSIVE METABOLIC 36823 PROT TOT 6.7 GM/DL 2011 Unknown COMPREHENSIVE METABOLIC 98199 Glucose 101 MG/DL 2011 Unknown COMPREHENSIVE METABOLIC 46259 BICARB 27 MMOL/L 2011 Unknown COMPREHENSIVE METABOLIC 23667 ANION GAP 8 MEQ/L 2011 Unknown GFR CALC [id number] GFR AA >60 ML/MIN 07/19/2012 Unknown GFR CALC 1225207 GFR NON-AA >60 ML/MIN 07/19/2012 Unknown Procedures Procedure Codes Date ROUTINE VENIPUNCTURE CPT-4: 94384 09/30/2019 COMPREHEN METABOLIC PANEL CPT-4: 91661 09/30/2019 COMPLETE CBC W/AUTO DIFF WBC CPT-4: 21792 09/30/2019 ASSAY OF PSA TOTAL CPT-4: 29213 09/30/2019 ASSAY THYROID STIM HORMONE CPT-4: 11470 09/30/2019 LIPID PANEL CPT-4: 62837 09/30/2019 ROUTINE VENIPUNCTURE CPT-4: 82737 09/24/2019 COMPLETE CBC W/AUTO DIFF WBC CPT-4: 06073 09/24/2019 COMPREHEN METABOLIC PANEL CPT-4: 65346 09/24/2019 LIPID PANEL CPT-4: 92767 09/24/2019 ASSAY THYROID STIM HORMONE CPT-4: 60237 09/24/2019 THER/PROPH/DIAG INJ SC/IM CPT-4: 39969 01/13/2019 TRIAMCINOLONE ACET INJ NOS CPT-4: J3301 01/13/2019 DEXAMETHASONE SODIUM PHOS CPT-4: J1100 01/13/2019 ROUTINE VENIPUNCTURE CPT-4: 86396 09/04/2018 COMPREHEN METABOLIC PANEL CPT-4: 02430 09/04/2018 COMPLETE CBC W/AUTO DIFF WBC CPT-4: 82602 09/04/2018 LIPID PANEL CPT-4: 98943 09/04/2018 ASSAY OF PSA TOTAL CPT-4: 81329 09/04/2018 ASSAY THYROID STIM HORMONE CPT-4: 33342 09/04/2018 URINALYSIS NONAUTO W/O SCOPE CPT-4: 65790 05/15/2018 ROUTINE VENIPUNCTURE CPT-4: 90952 11/16/2017 A FRT/VG P CPT-4: 7819858 11/16/2017 A FOOD C P CPT-4: 5030408 11/16/2017 A NUTS PNL CPT-4: 1748173 11/16/2017 THER/PROPH/DIAG INJ SC/IM CPT-4: 73911 11/06/2017 TRIAMCINOLONE ACET INJ NOS CPT-4: J3301 11/06/2017 DEXAMETHASONE SODIUM PHOS CPT-4: J1100 11/06/2017 ROUTINE VENIPUNCTURE CPT-4: 01865 09/03/2017 ASSAY OF FREE THYROXINE CPT-4: 36655 09/03/2017 ASSAY THYROID STIM HORMONE CPT-4: 89945 09/03/2017 ASSAY TRIIODOTHYRONINE (T3) CPT-4: 22749 09/03/2017 ROUTINE VENIPUNCTURE CPT-4: 24518 07/31/2017 COMPREHEN METABOLIC PANEL CPT-4: 70283 07/31/2017 COMPLETE CBC W/AUTO DIFF WBC CPT-4: 45023 07/31/2017 LIPID PANEL CPT-4: 34663 07/31/2017 FLU VACC PRSV FREE INC ANTIG 65 AND OLDER CPT-4: 64456 07/04/2017 ADMIN INFLUENZA VIRUS VAC CPT-4: G0008 07/04/2017 ROUTINE VENIPUNCTURE CPT-4: 63408 02/26/2017 ASSAY THYROID STIM HORMONE CPT-4: 95061 02/26/2017 COMPREHEN METABOLIC PANEL CPT-4: 94221 02/26/2017 COMPLETE CBC W/AUTO DIFF WBC CPT-4: 84016 02/26/2017 LIPID PANEL CPT-4: 37151 02/26/2017 ASSAY OF PSA TOTAL CPT-4: 14825 02/26/2017 FLUZONE, 5ML (Medicare) CPT-4: Q2038 06/28/2016 ADMIN INFLUENZA VIRUS VAC CPT-4: G0008 06/28/2016 ROUTINE VENIPUNCTURE CPT-4: 66984 05/19/2016 ASSAY OF FREE THYROXINE CPT-4: 05384 05/19/2016 ASSAY THYROID STIM HORMONE CPT-4: 54332 05/19/2016 COMPREHEN METABOLIC PANEL CPT-4: 11416 05/19/2016 COMPLETE CBC W/AUTO DIFF WBC CPT-4: 34542 05/19/2016 LIPID PANEL CPT-4: 88528 05/19/2016 VITAMIN B-12 CPT-4: 63315 05/19/2016 PPPS, initial visit CPT-4: G0438 05/10/2016 ROUTINE VENIPUNCTURE CPT-4: 37294 04/05/2015 ASSAY THYROID STIM HORMONE CPT-4: 61947 04/05/2015 COMPREHEN METABOLIC PANEL CPT-4: 42697 04/05/2015 COMPLETE CBC W/AUTO DIFF WBC CPT-4: 32684 04/05/2015 LIPID PANEL CPT-4: 83433 04/05/2015 ASSAY OF PSA TOTAL CPT-4: 66396 04/05/2015 ROUTINE VENIPUNCTURE CPT-4: 07560 07/19/2012 COMPREHEN METABOLIC PANEL CPT-4: 75587 07/19/2012 LIPID PANEL CPT-4: 66409 07/19/2012 ELECTROCARDIOGRAM COMPLETE CPT-4: 15263 03/22/2012 Vital Signs Date Vital 09/24/2019 Blood Pressure 1: 125/72 Code: 8480-6 BMI: 19.8 Code: 68751-8 Heart Rate 1: 88 bpm Height: 5'11" [...] 1: 102/60 Code: 8480-6 BMI: 19.1 Code: 17147-0 Heart Rate 1: 82 bpm Height: 5'11" Respiratory Rate: 22 bpm SpO2: 97% Tempera ture: 36.4 (C) / 97.6 (F) Weight: 137 lbs 04/25/2018 Blood Pressure 1: 118/64 Code: 8480-6 BMI: 19.2 Code: 96213-5 Heart Rate 1: 98 bpm Height: 5'11" Respiratory Rate: 20 bpm SpO2: 99% Tempera ture: 36.4 (C) / 97.6 (F) Weight: 138 lbs 11/06/2017 Blood Pressure 1: 108/68 Code: 8480-6 BMI: 18.5 Code: 56738-2 Heart Rate 1: 68 bpm Height: 5'11" Respiratory Rate: 20 bpm SpO2: 96% Tempera ture: 36.8 (C) / 98.2 (F) Weight: 133 lbs 09/03/2017 Blood Pressure 1: 122/64 Code: 8480-6 BMI: 17.6 Code: 93673-7 Heart Rate 1: 90 bpm Height: 5'11" Respiratory Rate: 20 bpm SpO2: 98% Tempera ture: 36.4 (C) / 97.6 (F) Weight: 126 lbs 08/21/2017 Blood Pressure 1: 114/80 Code: 8480-6 BMI: 17.9 Code: 24216-7 Heart Rate 1: 80 bpm Height: 5'11" Respiratory Rate: 20 bpm SpO2: 95% Tempera ture: 36.6 (C) / 97.9 (F) Weight: 128 lbs 02/13/2017 Blood Pressure 1: 122/60 Code: 8480-6 BMI: 18.5 Code: 73897-1 Heart Rate 1: 76 bpm Height: 5'11" Respiratory Rate: 20 bpm SpO2: 96% Tempera ture: 36.9 (C) / 98.4 (F) Weight: 133 lbs 11/23/2016 Blood Pressure 1: 126/70 Code: 8480-6 BMI: 18.5 Code: 56746-3 Heart Rate 1: 100 bpm Height: 5'11" Respiratory Rate: 20 bpm SpO2: 96% Tempera ture: 37.1 (C) / 98.8 (F) Weight: 133 lbs 05/23/2016 Blood Pressure 1: 128/82 Code: 8480-6 BMI: 18.5 Code: 94554-6 Heart Rate 1: 88 bpm Height: 5'11" Respiratory Rate: 20 bpm Temperature: 36 .7 (C) / 98.0 (F) Weight: 133 lbs 05/10/2016 Blood Pressure 1: 146/70 Code: 8480-6 BMI: 18.5 Code: 38605-7 Heart Rate 1: 84 bpm Height: 5'11" Respiratory Rate: 20 bpm Temperature: 36 .7 (C) / 98.1 (F) Weight: 133 lbs 04/01/2015 Blood Pressure 1: 102/60 Code: 8480-6 BMI: 18.5 Code: 46146-9 Heart Rate 1: 64 bpm Height: 5'11" Respiratory Rate: 20 bpm Temperature: 36 .8 (C) / 98.2 (F) Weight: 133 lbs 01/13/2014 Blood Pressure 1: 124/78 Code: 8480-6 BMI: 19.8 Code: 55557-1 Heart Rate 1: 76 bpm Height: 5'11" Respiratory Rate: 20 bpm Temperature: 36 .8 (C) / 98.2 (F) Weight: 142 lbs 04/03/2012 Blood Pressure 1: 106/76 Code: 8480-6 BMI: 20.9 Code: 26055-2 Heart Rate 1: 84 bpm Height: 5'11" Respiratory Rate: 20 bpm Temperature: 36 .7 (C) / 98.0 (F) Weight: 150 lbs 12/20/2011 Blood Pressure 1: 116/60 Code: 8480-6 BMI: 20.1 Code: 50398-3 Heart Rate 1: 80 bpm Height: 5'11" Respiratory Rate: 20 bpm Temperature: 36 .4 (C) / 97.6 (F) Weight: 144 lbs 10/24/2011 Blood Pressure 1: 132/74 Code: 8480-6 BMI: 19.7 Code: 46934-9 Heart Rate 1: 96 bpm Height: 5'11" [...] For Visit Effective Dates Notes Medication Monitoring 09/24/2019 follow up 05/26/2019 rectal [...] 04/05/2015 follow up 04/01/2015 follow up 01/13/2014 [facility] in November 2012 lab draw 07/19/2012 follow up 04/03/2012 S/P stent placement in LAD, changed effient to plavix hip pain 12/20/2011 dyskinesia or tremor 10/24/2011 follow up 03/13/2011 started on effient, zocor, and atenolol follow up 02/20/2011 [facility]/Dr Christian rojas follow up 02/23/2010 [facility], appt with Dr Bajwa 03/22/10 insomnia 01/12/2010 problems falling and staying asleep, takes nortriptyline Encounters Encounter Performer Location Codes Date () NURSE/OUTPATIENT VISIT EST Diagnosis: Essential (primary) hypertension[ICD10: I10] Diagnosis: Mixed hyperlipidemia[ICD10: E78.2] Diagnosis: Encounter for screening for malignant neoplasm of prostate[ICD10: Z12.5] Vonnie MATHEWS [employer] CPT-4: 61863 09/30/2019 ([id number]) OFFICE/OUTPATIENT VISIT EST Diagnosis: Encounter for therapeutic drug level monitoring[ICD10: Z51.81] Diagnosis: Essential tremor[ICD10: G25.0] Verna Ericksondrew MATHEWS [employer] CPT-4: 06762 09/24/2019 ([id number]) OFFICE/OUTPATIENT VISIT EST Diagnosis: Noninfective gastroenteritis and colitis, unspecified[ICD10: K52.9] Diagnosis: Hemorrhage of anus and rectum[ICD10: K62.5] Vonnie MATHEWS Corrigo [facility] CPT-4: 43459 05/26/2019 ([id number]) OFFICE/OUTPATIENT VISIT EST Diagnosis: Other intervertebral disc degeneration, 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] Diagnosis: Other forms of dyspnea[ICD10: R06.09] Vonnie MATHEWS Corrigo [facility] CPT-4: 16577 03/17/2019 OFFICE/OUTPATIENT VISIT EST Diagnosis: Other intervertebral disc degeneration, 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] Diagnosis: Other symptoms and signs involving the musculoskeletal system[ICD10: R29.898] Vonnie MATHEWS Corrigo [facility] CPT-4: 22626 02/18/2019 ([id number]) OFFICE/OUTPATIENT VISIT EST Diagnosis: Other allergic rhinitis[ICD10: J30.89] Akilah Lopez ODLLY BOWMAN Corrigo [facility] CPT-4: 58197 01/13/2019 ([id number]) NURSE/OUTPATIENT VISIT EST Diagnosis: Mixed hyperlipidemia[ICD10: E78.2] Diagnosis: Essential (primary) hypertension[ICD10: I10] Diagnosis: Encounter for screening for malignant neoplasm of prostate[ICD10: Z12.5] Diagnosis: Encounter for general adult medical examination with abnormal findings[ICD10: Z00.01] Diagnosis: Benign prostatic hyperplasia without lower urinary tract symptoms[ICD10: N40.0] Vonnie MATHEWS Corrigo [facility] CPT-4: 82775 09/04/2018 ([id number]) OFFICE/OUTPATIENT VISIT EST Diagnosis: Otorrhea, left ear[ICD10: H92.12] Diagnosis: Impacted cerumen, right ear[ICD10: H61.21] Verna MATHEWS Corrigo [facility] CPT-4: 51473 09/03/2018 ([id number]) OFFICE/OUTPATIENT VISIT EST Diagnosis: Other intervertebral disc degeneration, 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] Diagnosis: Primary insomnia[ICD10: F51.01] Diagnosis: Essential tremor[ICD10: G25.0] Vonnie COLMENARES Gilberto MATHEWS Corrigo [facility] CPT-4: 46008 08/26/2018 ([id number]) OFFICE/OUTPATIENT VISIT EST Diagnosis: Pelvic and perineal pain[ICD10: R10.2] Verna MATHEWS [employer] CPT-4: 87407 05/15/2018 ([id number]) OFFICE/OUTPATIENT VISIT EST Diagnosis: Encounter for therapeutic drug level monitoring[ICD10: Z51.81] Diagnosis: Acute sinusitis, unspecified[ICD10: J01.90] Diagnosis: Other intervertebral disc degeneration, 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] Diagnosis: Essential tremor[ICD10: G25.0] Diagnosis: Raynaud's syndrome without gangrene[ICD10: I73.00] Verna ASCENCIOLINE Denia [employer] CPT-4: 86791 04/25/2018 ([id number]) OFFICE/OUTPATIENT VISIT EST Diagnosis: Idiopathic urticaria[ICD10: L50.1] Diagnosis: Other urticaria[ICD10: L50.8] Vonnie COLMENARES Denia [employer] CPT-4: 76985 11/16/2017 ([id number]) OFFICE/OUTPATIENT VISIT EST Diagnosis: Idiopathic urticaria[ICD10: L50.1] Diagnosis: Other urticaria[ICD10: L50.8] Diagnosis: Other forms of dyspnea[ICD10: R06.09] Vonnie RODGERS GilbertoKim COLBYT[employer]Cast [employer] [facility] CPT-4: 37854 11/06/2017 ([id number]) OFFICE/OUTPATIENT VISIT EST Diagnosis: Dyspnea, unspecified[ICD10: R06.00] Diagnosis: Abnormal weight loss[ICD10: R63.4] Vonnie LUCIA Denia [employer] [facility] CPT-4: 95730 09/03/2017 ([id number]) OFFICE/OUTPATIENT VISIT EST 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] Diagnosis: Mixed hyperlipidemia[ICD10: E78.2] Diagnosis: Essential tremor[ICD10: G25.0] Diagnosis: Essential (primary) hypertension[ICD10: I10] Diagnosis: Abnormal weight loss[ICD10: R63.4] Vonnie LAIPATI MATHEWS Corrigo [facility] CPT-4: 47555 08/21/2017 ([id number]) OFFICE/OUTPATIENT VISIT EST Diagnosis: Mixed hyperlipidemia[ICD10: E78.2] Diagnosis: Essential (primary) hypertension[ICD10: I10] 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] Diagnosis: Anemia, unspecified[ICD10: D64.9] Vonnie ASCENCIOMARSHA MATHEWS Corrigo [facility] CPT-4: 00822 07/31/2017 ([id number]) OFFICE/OUTPATIENT VISIT EST Diagnosis: FLU VACCINE[ICD10: Z23] Vonnie GERMAN Corrigo [facility] CPT-4: 80932 07/04/2017 ([id number]) OFFICE/OUTPATIENT VISIT EST Diagnosis: Mixed hyperlipidemia[ICD10: E78.2] Diagnosis: Essential tremor[ICD10: G25.0] 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] Diagnosis: Essential (primary) hypertension[ICD10: I10] Diagnosis: Supraventricular tachycardia[ICD10: I47.1] Diagnosis: Other fatigue[ICD10: R53.83] Diagnosis: Encounter for screening for malignant neoplasm of prostate[ICD10: Z12.5] Vonnie Romulojuan miguel VONNIE Denia MATHEWS Corrigo [facility] CPT-4: 94783 02/26/2017 ([id number]) OFFICE/OUTPATIENT VISIT EST Diagnosis: Essential tremor[ICD10: G25.0] Vonniefabricio MATHEWS DO [facility] CPT-4: 51344 02/13/2017 ([id number]) OFFICE/OUTPATIENT VISIT EST Diagnosis: Essential tremor[ICD10: G25.0] Diagnosis: Other intervertebral disc degeneration, 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] Vonnie Mathews VONNIE Denia MATHEWS Corrigo [facility] CPT-4: 98424 11/23/2016 ([id number]) OFFICE/OUTPATIENT VISIT EST Diagnosis: FLU VACCINE[ICD10: Z23] Vonnie GERMAN DO [facility] CPT-4: 79405 06/28/2016 OFFICE/OUTPATIENT VISIT EST Diagnosis: Open bite of right hand, initial encounter[ICD10: S61.451A] Vonnie MATHEWS DO [facility] CPT-4: 71874 05/23/2016 ([id number]) OFFICE/OUTPATIENT VISIT EST Diagnosis: Encounter for general adult medical examination with abnormal findings[ICD10: Z00.01] Diagnosis: Mixed hyperlipidemia[ICD10: E78.2] Diagnosis: Essential tremor[ICD10: G25.0] 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] Vonnie MATHEWS [facility] CPT-4: 34234 05/19/2016 ([id number]) OFFICE/OUTPATIENT VISIT EST Diagnosis: HYPERLIPIDEMIA NEC/NOS[ICD9: 272.4] Diagnosis: CAD[ICD9: 414.00] Diagnosis: TACHYCARDIA[ICD9: 785.0] Diagnosis: HYPERTENSION[ICD9: 401.9] Diagnosis: Routine medical exam[ICD9: V70.0] Vonnie BOWMAN Corrigo [facility] CPT-4: 56793 04/05/2015 ([id number]) OFFICE/OUTPATIENT VISIT EST Diagnosis: HYPERTENSION[ICD9: 401.9] Diagnosis: HYPERLIPIDEMIA NEC/NOS[ICD9: 272.4] Diagnosis: CAD[ICD9: 414.00] Diagnosis: LUMB/LUMBOSAC DISC DEGEN[ICD9: 722.52] Vonnie MATHEWS [facility] CPT-4: 44928 04/01/2015 ([id number]) OFFICE/OUTPATIENT VISIT EST Diagnosis: CHEST PAIN NOS[ICD9: 786.50] Diagnosis: PAIN IN THORACIC SPINE[ICD9: 724.1] Diagnosis: HYPERTENSION[ICD9: 401.9] Diagnosis: GERD[ICD9: 530.81] Vonnie MATHEWS Corrigo [facility] CPT-4: 54331 01/13/2014 ([id number]) OFFICE/OUTPATIENT VISIT EST Diagnosis: CAD[ICD9: 414.00] Diagnosis: HYPERLIPIDEMIA NEC/NOS[ICD9: 272.4] Vonnie Loza ORENDER DO [facility] CPT-4: 16843 07/19/2012 ([id number]) OFFICE/OUTPATIENT VISIT EST Diagnosis: CAD[ICD9: 414.00] Diagnosis: INSOMNIA NOS[ICD9: 780.52] Vonnie Loza [employer] CPT-4: 42833 04/03/2012 ([id number]) OFFICE/OUTPATIENT VISIT EST Diagnosis: CHEST PAIN NOS[ICD9: 786.50] Diagnosis: CAD[ICD9: 414.00] Vonnie Loza ORENDER DO [facility] CPT-4: 73982 03/22/2012 ([id number]) OFFICE/OUTPATIENT VISIT EST Diagnosis: PROSTATITIS[ICD9: 601.9] Diagnosis: TREMOR NEC[ICD9: 333.1] Vonnie Loza OREND ER DO [facility] CPT-4: 44270 12/20/2011 OFFICE/OUTPATIENT VISIT EST Diagnosis: TREMOR NEC[ICD9: 333.1] Diagnosis: TACHYCARDIA[ICD9: 785.0] Diagnosis: HYPERTENSION[ICD9: 401.9] Vonnie Loza [employer] CPT-4: 11969 10/24/2011 OFFICE/OUTPATIENT VISIT EST Vonnie Loza ORE NDER DO [facility] CPT- 4: 11331 03/13/2011 ([id number]) OFFICE/OUTPATIENT VISIT EST Vonnie GASPAR SKim ORENDER DO [facility] CPT-4: 36745 02/20/2011 ([id number]) OFFICE/OUTPATIENT VISIT, EST Vonnie NELSON [employer] CPT-4: 44541 02/23/2010 ([id number]) OFFICE/OUTPATIENT VISIT, EST Vonnie NELSON S. ORENDER DO [facility] CPT-4: 01865 01/12/2010 Plan of Care Planned Activity Notes Codes Status Date Appointment: Vonnie Mathews WPtel: [phone] [facility] [facility] 09/30/2019 Appointment: Verna Ramirez [address] [place], [place] [phone] [place] RESCHEDULED 09/25/2019 Visit Diagnosis Plan: Encounter for therapeutic drug l evel monitoring Discussion: UDS and contract completed today. ICD-9 : V58.83 ICD-10 : Z51.81 09/24/2019 Visit Diagnosis Plan: Essential tremor Discussion: sta ble on clonazepam. educated patient about purchasing a large, heavy pen that will allow him to improve his writing. instructed him that pens can be purchased on [employer]. ICD-9 : 333.1 ICD-10 : G25.0 09/24/2019 Appointment: Verna Ramirez [address] [id number] MEDICATION REVIEW 09/24/2019 Visit Diagnosis Plan: Hemorrhage of anus and rectum Di scussion: Update colonoscopy ICD-9 : 569.3 ICD-10 : K62.5 05/26/2019 Visit Diagnosis Plan: Noninfective gastroenteritis and colitis, unspecified Discussion: Flagyl [place] diet Update colonoscopy ICD-9 : 558.9 ICD-10 : K52.9 05/26/2019 Appointment: Vonnie [facility]ws [facility]el[facility] [phone] [facility] [facility] record request faxed 05/23; LM with medical records 05/26/19 Hospital Follow Up 05/26/2019 Care Plan: Referral Order SNOMED-CT : 30 [id number] Pending 05/26/2019 Visit Diagnosis Plan: Other intervertebral disc degene ration, lumbar region Discussion: Increase lyrica to 150mg po q HS Continue stretches from PT [facility] Fwup after that appointment ICD-9 : 722.52 ICD-10 : M51.36 03/17/2019 Appointment: Vonnie Mathews [facility]Ptel: [phone] [facility] [facility] FOLLOW UP 03/17/2019 Visit Diagnosis Plan: [...] : M51.36 02/18/2019 Appointment: Vonnie Mathews WPtel: [address] [place] [address] FOLLOW UP 02/18/2019 Appointment: Vonnie Mathews WPtel: [address] [place] [address] US CANCELED 02/18/2019 Visit Diagnosis Plan: Other [...] : J30.89 01/13/2019 Appointment: Akilah Lopez [address] Due for annual wellness ACUTE ILLNESS 01/14/20 Appointment: Vonnie Mathews WPtel: [address] [place] [address] US LAB 09/04/2018 Visit Diagnosis Plan: Otorrhea, [...] : H61.21 09/03/2018 Appointment: Verna Ramirez [address] [employer] [address] ACUTE ILLNESS 09/03/2018 Visit Diagnosis Plan: Primary [...] G25.0 08/26/2018 Appointment: Vonnie Mathews WPtel: [phone] [facility] US FOLLOW UP 08/26/2018 Visit Diagnosis Plan: [...] ICD-10 : R10.2 05/15/2018 Appointment: Verna Ramirez [address] [place] [address] ACUTE ILLNESS 05/15/2018 Patient Education: Patient Medication Summary Completed 05/15/2018 Care Plan: US EXAM PELVIC COMPLETE scrotal LOINC : 82117-1 Pending 05/15/2018 Visit Diagnosis Plan: Other intervertebral [...] ICD-10 : J01.90 04/25/2018 Appointment: Verna Ramirez [address] [place] [address] MEDICATION REVIEW 04/25/2018 Patient Education: Patient Medication Summary Completed 04/25/2018 Appointment: Vonnie Mathews WPtel: [facility] 11/16/2017 Patient Education: Patient Medication Summary Completed [...] L50.1 11/06/2017 Appointment: Vonnie Mathews WPtel: [phone] [facility] FOLLOW UP 11/06/2017 Patient Education: Patient Medication [...] 783.21 ICD-10 : R63.4 09/03/2017 Appointment: Vonnie Mathewstel: [address] [place] [address] FOLLOW UP 09/03/2017 Patient Education: Patient Medication Summary Completed 09/03/2017 Visit Diagnosis Plan: Mixed hyperlipidemia Discussion: Lab discussed ICD-9 : 272.4 ICD-10 : E78.2 08/21/2017 Visit Diagnosis Plan: Essential tremor Discussion: Sta ble on Primidone ICD-9 : 333.1 ICD-10 : G25.0 08/21/2017 Visit Diagnosis Plan: Atherosclerotic he art disease of [place] coronary artery without angina pectoris Discussion: Sees Cardiology in 2 days To ER if CP returns before ICD-9 : 414.00 ICD-10 : I25.10 08/21/2017 Visit Diagnosis Plan: Abnormal weight loss Discussion: Start daily protein shake or smoothie ICD-9 : 783.21 ICD-10 : R63.4 08/21/2017 Visit Diagnosis Plan: Essential (primary) hypertension Discussion: Stable ICD-9 : 401.9 ICD-10 : I10 08/21/2017 Appointment: Vonnie Mathewstel: [address] [place] [address] FOLLOW UP 08/21/2017 Patient Education: Patient Medication Summary Completed 08/21/2017 Appointment: Vonnie Mathewstel: [address] [place] [address] LAB 07/31/2017 Patient Education: Patient Medication Summary Completed 07/31/2017 Appointment: Vonnie Mathews WPtel: [address] [place], [place] [phone] US INJECTION 07/04/2017 Patient Education: Patient Medication Summary Completed 07/04/2017 Appointment: Vonnie Mathews WPtel: [address] [place], [place] [phone] [place] LAB 02/26/2017 Patient Education: Patient Medication Summary Completed 02/26/2017 Visit Diagnosis Plan: Essential tremor Discussion: Con tinue clonazepam at 1mg q AM and primidone 50mg q HS Follow Up: 3 months ICD-9 : 333.1 ICD-10 : G25.0 02/13/2017 Appointment: Vonnie Mathews WPtel: [address] [place], [place] [phone] 02/08 confirmed~sl FOLLOW UP 02/13/2017 Patient Education: Patient Medication Summary Completed 02/13/2017 Appointment: Vonnie Mathews WPtel: [address] [place], [place] [phone] US RESCHEDULED 01/23/2017 Visit Diagnosis Plan: Other intervertebral disc degene ration, lumbar region Discussion: DC oxycodone Tramadol 50mg 1-2 po TID prn pain Follow Up: 2 months ICD-9 : 722.52 ICD-10 : M51.36 11/23/2016 Visit Diagnosis Plan: Essential tremor Discussion: Inc rease clonazepam to 1mg po BID Discussed sinemet ICD-9 : 333.1 ICD-10 : G25.0 11/23/2016 Appointment: Vonnie Mathews WPtel: [address] [place] [address] 11/22 confirmed~sl MEDICATION REVIEW 11/23/2016 Patient Education: Patient Medication Summary Completed 11/23/2016 Patient Education: [facility] - [employer] - Clonazepam - 18-64 - Dynamic Portal ID Completed 11/23/2016 Appointment: Vonnie Mathews WPtel: [address] [place], [place] [phone] [place] INJECTION 06/28/2016 Patient Education: Patient Medication Summary Completed 06/28/2016 Referral: Fernando Day WPtel: #1 [facility] Gucci Stout [id number] [place] [id number] per Maribeth, the patient is [...] Notify if worsening 05/23/2016 Appointment: Vonnie Mathewstel: [address] [place], [place] [id number] ER Follow UP 05/23/2016 Patient Education: Patient Medication Summary Completed 05/23/2016 Appointment: Vonnie Mathews WPtel: [phone] [place], [place] [id number] [place] LAB 05/19/2016 Patient Education: Patient Medication Summary Completed 05/19/2016 Visit Plan: Change coreg to 3.125mg BID Trial of low dose clonazepam 0.5mg BID for tremors Fwup with Dr. Ramsey as scheduled Return for fasting lab--CBC, CMP, TSH, free T4, Lipids, PSA, B12 Proceed with Colonoscopy 05/10/2016 Appointment: Vonnie Mathews WPtel: [address] [place], [place] [phone] [place] 05/09 confirmed~sl Annual Well Visit 05/10/2016 Patient Education: Patient Medication Summary Completed 05/10/2016 Care Plan: Referral Order SNOMED-CT : 30 [id number] Pending 05/10/2016 Appointment: Vonnie Mathews WPtel: [address] [place], [place] [phone] [place] Rescheduled for 05/10/16 at 2PM~lb RESCHEDULED 04/26/2016 Referral: Danilo Ramsey WPtel: [phone] [id number] US Referral Initiated 04/29/2015 Appointment: Vonnie Mathews WPtel: [phone] [place], [place] [id number] [place] LAB 04/05/2015 Patient Education: Patient Medication Summary Completed 04/05/2015 Visit Plan: Return in AM for fasting lab --CMP, lipids, CBC, TSH, PSA Change hydrocodone to oxycodone 7.5/325mg 1-2 po TID Schedule with cardiology Needs colonoscopy once cardiology evaluation complete Will need to restart chol meds after lab Recheck 1mo on pain meds 04/01/2015 Appointment: Vonnie Mathews WPtel: [address] [place], [place] [phone] [place] 03/31 confirmed -mf PHYSICAL 04/01/2015 Patient Education: Patient Medication Summary Completed 04/01/2015 Appointment: Vonnie Mathews WPtel: [address] [place], [place] [phone] Annual Well Visit 09/23/2014 Visit Plan: Continue protonix Pt has fwu p with Card next month Rec chiropracter or PT for ribs/thoracics being out and could be contributing to chest pain 01/13/2014 Appointment: Vonnie Mathews WPtel: [address] [place] [address] US FOLLOW UP 01/13/2014 Patient Education: Patient Medication Summary Completed 01/13/2014 Appointment: Ariella Mcnally WPtel: [address] [place] [address] US FOLLOW UP 12/12/2013 Appointment: Malika Cárdenas WPtel: [address] [place], [place] [phone] PHYSICAL 12/12/2013 Appointment: Vonnie Mathews WPtel: [address] [place], [place] [phone] ACUTE ILLNESS 02/20/2013 Appointment: Vnonie Mathews WPtel: [address] [place], [place] [phone] [place] LAB 07/19/2012 Patient Education: Patient Medication Summary Completed 07/19/2012 Appointment: Vonnie Mathews WPtel: [address] [place], [place] [phone] US FOLLOW UP 04/03/2012 Patient Education: Patient Medication Summary Completed 04/03/2012 Appointment: Vonnie Mathews WPtel: [address] [place] [address] ACUTE ILLNESS 03/22/2012 Patient Education: Patient Medication Summary Completed 03/22/2012 Appointment: Vonnie Mathews WPtel: [address] [place] [address] FOLLOW UP 12/26/2011 Visit Plan: Add Cipro Continue current m eds 12/20/2011 Appointment: Vonnie Mathews WPtel: [address] [place] [address] ACUTE ILLNESS 12/20/2011 Patient Education: Patient Medication Summary Completed 12/20/2011 Visit Plan: Change neurontin to Cymbalta 30mg for 1wk then 60mg QD Add Propranolol for tremor 10/24/2011 Appointment: Vonnie Mathews WPtel: [address] [place] [address] ACUTE ILLNESS 10/24/2011 Appointment: Vonnie Mathews WPtel: [address] [place] [address] ACUTE ILLNESS 10/24/2011 Patient Education: Patient Medication Summary Completed 10/24/2011 Visit Plan: Continue current meds and fw up with Card as scheduled 03/13/2011 Appointment: Vonnie Mathews WPtel: [address] [place], [place] [id number] FOLLOW UP 03/13/2011 Patient Education: Patient Medication Summary Completed 03/13/2011 Visit Plan: Will obtain all records and lab from [facility] Discussed will likely need heart cath which pt states that Card did talk to him about in the hospital 02/20/2011 Appointment: Vonnie Mathews WPtel: [address] [place] [address] ACUTE ILLNESS 02/20/2011 Patient Education: Patient Medication Summary Completed 02/20/2011 Visit Plan: Cont Pepcid and Prilosec See Card for cardiac cath. 02/23/2010 Appointment: Vonnie Mathews WPtel: [phone] [id number] FOLLOW UP 02/23/2010 Patient Education: Patient Medication Summary Completed 02/23/2010 Visit Plan: Increase Pamelor to 75mg qhs Increase Hydrocodone to 10/325mg 1-2 po q6 prn 01/12/2010 Appointment: Vonnie Mathews WPtel: [phone] [id number] ACUTE ILLNESS 01/12/2010 Patient Education: Patient Medication Summary Completed 01/12/2010 Referral: Iván Pardo WPtel: [facility] [address] Referral Initiated Referral: Fernando Day WPtel: [phone] Referral Completed Referral: Fernando Day WPtel: [phone] Referral Appointment Requested Instructions Comment . [...]
--- OUTSIDE RECORDS SUMMARY | 2020-02-10 08:15 | XMS REPORT | CCD ---
Author Author Nash Mathews D.O. Organization [facility] Address [address] [place] [address] Phone Care Team Providers Care Jailer/Training Officer Name Role Phone [facility] D.O., PP Unavailable CCM Unavailable Summary Purpose Interface Exchange Insurance Providers Payer name Policy type / Coverage type Covered green party ID Effective Begin Date Effective End Date [employer] MEDICARE Medicare Part B [id number] 2019 Unknown Family History Family History data not found Social History Social History Element Codes Description Effective Dates Marital status Unknown 10/24/[address]: 119311295 Nonsmoker 03/29/2011 Allergies, Adverse Reactions, Alerts Substance [...] R63.4 08/21/2017 Active 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: [...] Fill Instructions clonazepam 1 mg tablet RxNorm: 404776 TAKE 1 TABLET BY MOUTH EV SUSAN MORNING 11/17/2019 12/16/2019 Active Tamiflu 75 mg capsule RxNorm: 074026 1 Capsule(s) Oral QD 11/03/2019 11/12/2019 Inactive Tamiflu 75 mg capsule RxNorm: 809220 1 Capsule(s) Oral QD 11/03/2019 11/02/2019 Inactive clonazepam 1 mg tablet RxNorm: 479891 TAKE 1 TABLET BY MOUTH EV SUSAN MORNING 10/16/2019 11/13/2019 Inactive pravastatin 20 mg tablet RxNorm: 385732 1 Tablet(s) Oral QD 020 04/06/2020 Active Singulair 10 mg tablet RxNorm: 510565 TAKE 1 TABLET BY MOUTH EV SUSAN DAY 10/10/2019 07/05/2020 Active Lyrica 75 mg capsule RxNorm: 766460 1 Capsule(s) Oral every nig ht at bedtime 10/09/2019 01/07/2020 Active clonazepam 1 mg tablet RxNorm: 401417 TAKE 1 TABLET BY MOUTH EV SUSAN AM 09/23/2019 10/15/2019 Inactive clonazepam 1 mg tablet RxNorm: 941421 TAKE 1 TABLET BY MOUTH EV SUSAN AM 08/21/2019 09/22/2019 Inactive Singulair 10 mg tablet RxNorm: 787694 TABLET(S) 1 TABLET(S) PO QD 1 10/09/2019 Inactive Flagyl 500 mg tablet RxNorm: 761691 1 Tablet(s) PO TID 05/26/2019 Inactive clonazepam 1 mg tablet RxNorm: 493020 TAKE 1 TABLET BY MOUTH EV SUSAN MORNING 05/23/2019 06/21/2019 Inactive pravastatin 20 mg tablet RxNorm: 707071 1 Tablet(s) PO QD 04/14/2019 10/09/2019 Inactive Needs updated fasting labs Singulair 10 mg tablet RxNorm: 392698 Tablet(s) 1 TABLET(S) PO QD 0 04/14/2019 07/12/2019 Inactive clonazepam 1 mg tablet RxNorm: 869302 1 Tablet(s) PO QAM 02/21/2019 0 05/23/2019 Inactive Bevespi Aerosphere 9 mcg-4.8 mcg HFA aerosol inhaler RxNorm: 7539136 2 Puff(s) INH BID 02/19/2019 No Stop Date Active ProAir HFA 90 mcg/actuation aerosol inhaler RxNorm: 046905 2 Puff(s) INH Q4H as needed 02/19/2019 09/24/2019 Inactive metoprolol tartrate 25 mg tablet RxNorm: 071729 1/2 Tablet(s) PO BI D 02/18/2019 05/18/2019 Inactive pravastatin 20 mg tablet RxNorm: 620633 1 Tablet(s) PO QD Needs updated fasting labs 01/13/2019 04/14/2019 Inactive Needs updated fa sting labs Singulair 10 mg tablet RxNorm: 990584 Tablet(s) 1 TABLET(S) PO QD 0 01/13/2019 04/12/2019 Inactive Plavix 75 mg tablet RxNorm: 006647 Tablet(s) 1 TABLET(S) PO QD 04/201906/20/2019 Inactive [SAVINGS FOR NON-COVERED SHANDA -- BIN:550098, PCN: ASPROD1, Group: XXXXX, ID# [id number], Questions: . THIS IS NOT INSURANCE.] Singulair 10 mg tablet RxNorm: 329357 1 TABLET(S) PO QD 10/29/2018 Inactive primidone 50 mg tablet RxNorm: 985484 2 TABLET(S) PO BI D TAKE 2 TABLETS BY MOUTH EVERY NIGHT AT BEDTIME 10/07/2018 01/12/2019 Inactive Patient requests 90 days supply pravastatin 20 mg tablet RxNorm: 753438 1 TABLET(S) PO QD 09/23/2018 01/12/2019 Inactive clonazepam 1 mg tablet RxNorm: 250644 1 Tablet(s) PO QAM 09/19/2018 0 12/17/2018 Inactive primidone 50 mg tablet RxNorm: 850003 TABLET(S) TAKE 2 TABLETS BY MOUTH EVERY NIGHT AT BEDTIME 09/18/2018 01/12/2019 Inactive ciprofloxacin 0.2 % ear drops in a dropperette RxNorm: 77133 6 2 Drop(s) left otic (ear) BID 09/03/2018 09/09/2018 Inactive primidone 50 mg tablet RxNorm: 388056 2 Tablet(s) PO BI D TAKE 2 TABLETS BY MOUTH EVERY NIGHT AT BEDTIME 08/26/2018 10/06/2018 Inactive Ambien 5 mg tablet RxNorm: 322648 TAKE 1 TABLET BY MOUTH EVERY NIGHT AT BEDTIME 08/05/2018 09/03/2018 Inactive Singulair 10 mg tablet RxNorm: 202926 1 TABLET(S) PO QD 07/23/2018 Inactive clonazepam 1 mg tablet RxNorm: 425292 TAKE 1 TABLET BY MOUTH EV SUSAN MORNING 07/23/2018 08/21/2018 Inactive Plavix 75 mg tablet RxNorm: 940049 1 TABLET(S) PO QD 07/04/201812/22 Inactive [SAVINGS FOR NON-COVERED DRUGS -- BIN:00 3585, PCN: ASPROD1, Group: XXXXX, ID# [id number], Questions: . THIS IS NOT INSURANCE.] clonazepam 1 mg tablet RxNorm: 819794 TAKE 1 TABLET BY MOUTH EV SUSAN MORNING 06/25/2018 07/23/2018 Inactive clonazepam 1 mg tablet RxNorm: 319128 TAKE 1 TABLET BY MOUTH EV SUSAN MORNING 05/23/2018 06/21/2018 Inactive primidone 50 mg tablet RxNorm: 871833 Tablet(s) TAKE 2 TABLETS BY MOUTH EVERY NIGHT AT BEDTIME 05/16/2018 08/25/2018 Inactive oxycodone-acetaminophen 7.5 mg-325 mg tablet RxNorm: 4412011 1-2 Tablet(s) PO TID as needed 04/25/2018 05/24/2018 Inactive Singulair 10 mg tablet RxNorm: 554940 1 Tablet(s) PO QD 04/25/2018 Inactive Medrol (Jose) 4 mg tablets in a dose pack RxNorm: 641656 Tablet(s) PO take as directed 04/25/2018 09/02/2018 Inactive clonazepam 1 mg tablet RxNorm: 185170 TAKE 1 TABLET BY MOUTH EV SUSAN MORNING 04/24/2018 05/22/2018 Inactive Plavix 75 mg tablet RxNorm: 450114 1 TABLET(S) PO QD 04/04/201807/02 Inactive [SAVINGS FOR NON-COVERED DRUGS -- BIN:00 3585, PCN: ASPROD1, Group: XXXXX, ID# [id number], Questions: . THIS IS NOT INSURANCE.] pravastatin 20 mg tablet RxNorm: 865578 1 Tablet(s) PO QD 03/21/2018 09/16/2018 Inactive ProAir HFA 90 mcg/actuation aerosol inhaler RxNorm: 386745 2 Puff(s) INH Q4H as needed 03/18/2018 03/17/2018 Inactive tamsulosin 0.4 mg capsule RxNorm: 021780 1 CAPSULE(S) PO QD 018 01/12/2019 Inactive clonazepam 1 mg tablet RxNorm: 461612 1 Tablet(s) PO QAM 02/25/2018 0 04/25/2018 Inactive tamsulosin 0.4 mg capsule RxNorm: 458609 1 Capsule(s) PO QD 018 03/13/2018 Inactive tamsulosin 0.4 mg capsule RxNorm: 420372 1 Capsule(s) PO QD 018 02/03/2018 Inactive tamsulosin 0.4 mg capsule RxNorm: 029580 1 Capsule(s) PO QD 018 02/12/2018 Inactive Ambien 5 mg tablet RxNorm: 518716 Tablet(s) TAKE 1 TAB LET BY MOUTH EVERY NIGHT AT BEDTIME 01/24/2018 08/05/2018 Inactive primidone 50 mg tablet RxNorm: 164852 Tablet(s) TAKE 2 TABLETS BY MOUTH EVERY NIGHT AT BEDTIME 01/18/2018 05/16/2018 Inactive cyclobenzaprine 10 mg tablet RxNorm: 756528 1 Tablet(s) PO TID as needed for muscle spasm 01/11/2018 02/09/2018 Inactive [SAVINGS FOR NON -COVERED DRUGS -- BIN:161447, PCN: ASPROD1, Group: XXXXX, ID# [id number], Questions: . THIS IS NOT INSURANCE.] clonazepam 1 mg tablet RxNorm: 871938 1 Tablet(s) PO QAM 12/24/2017 0 02/21/2018 Inactive prednisone 20 mg tablet RxNorm: 603402 1 Tablet(s) PO QD 11/06/2017 0 11/10/2017 Inactive EpiPen 2-Jose 0.3 mg/0.3 mL injection, auto-injector RxNorm: 621969 1 Unit Dose IM as needed 11/06/2017 09/24/2019 Inactive ProAir HFA 90 mcg/actuation aerosol inhaler RxNorm: 994482 2 Puff(s) INH Q4H as needed 10/30/2017 03/17/2018 Inactive primidone 50 mg tablet RxNorm: 935893 TAKE 2 TABLETS BY MOUTH EVERY NIGHT AT BEDTIME 10/15/2017 01/17/2018 Inactive Plavix 75 mg tablet RxNorm: 544130 1 Tablet(s) PO QD 10/01/201703/29 Inactive [SAVINGS FOR NON-COVERED DRUGS -- BIN:5, PCN: ASPROD1, Group: XXXXX, ID# [id number], Questions: . THIS IS NOT INSURANCE.] clonazepam 1 mg tablet RxNorm: 028587 1 Tablet(s) PO QAM 09/19/2017 0 12/16/2017 Inactive primidone 50 mg tablet RxNorm: 450186 2 Tablet(s) PO QHS 08/29/2017 0 01/18/2018 Inactive oxycodone-acetaminophen 7.5 mg-325 mg tablet RxNorm: 9498528 1-2 Tablet(s) PO TID as needed 08/22/2017 09/19/2017 Inactive pravastatin 20 mg tablet RxNorm: 311883 1 Tablet(s) PO QD 08/21/2017 03/21/2018 Inactive carvedilol 3.125 mg tablet RxNorm: 510250 1 Tablet(s) P O BID to replace 6.25mg dose 08/21/2017 09/02/2017 Inactive primidone 50 mg tablet RxNorm: 069519 TAKE 2 TABLETS BY MOUTH EVERY NIGHT AT BEDTIME 06/18/2017 08/28/2017 Inactive clonazepam 1 mg tablet RxNorm: 452004 1 Tablet(s) PO QAM 06/04/2017 1 11/02/2016 Inactive Plavix 75 mg tablet RxNorm: 328905 1 Tablet(s) PO QD 04/10/201710/01 Inactive [SAVINGS FOR NON-COVERED DRUGS -- BIN:5, PCN: ASPROD1, Group: XXXXX, ID# [id number], Questions: . THIS IS NOT INSURANCE.] pravastatin 20 mg tablet RxNorm: 197276 1 Tablet(s) PO QD 02/26/2017 08/24/2017 Inactive carvedilol 3.125 mg tablet RxNorm: 066902 1 Tablet(s) P O BID to replace 6.25mg dose 02/26/2017 08/21/2017 Inactive Ultram 50 mg tablet RxNorm: 817605 TAKE 1 TO 2 TABLETS BY MOUTH THREE TIMES DAILY NEEDED FOR PAIN 02/26/2017 03/07/2017 Inactive pravastatin 20 mg tablet RxNorm: 115050 1 Tablet(s) PO QD 02/26/2017 08/21/2017 Inactive carvedilol 3.125 mg tablet RxNorm: 879177 1 Tablet(s) P O BID to replace 6.25mg dose 02/26/2017 08/20/2017 Inactive clonazepam 0.5 mg tablet RxNorm: 293177 1 Tablet(s) PO QAM 02/14/20 17 02/13/2017 Inactive primidone 50 mg tablet RxNorm: 008348 1 Tablet(s) PO QHS 02/13/2017 0 05/01/2017 Inactive clonazepam 1 mg tablet RxNorm: 386667 1 Tablet(s) PO QAM 02/13/2017 0 05/13/2017 Inactive primidone 50 mg tablet RxNorm: 305406 1/2 Tablet(s) PO QD for 7 days then increase to 1 tablet at bedtime 01/09/2017 02/12/2017 Inactive pravastatin 20 mg tablet RxNorm: 490652 Tablet(s) 1 TABLET(S) PO QD 11/29/2016 02/25/2017 Inactive clonazepam 1 mg tablet RxNorm: 292355 1 Tablet(s) PO BID replac es 0.5mg dose 11/23/2016 01/08/2017 Inactive pravastatin 20 mg tablet RxNorm: 168421 1 TABLET(S) PO QD 11/17/2016 11/28/2016 Inactive Ambien 5 mg tablet RxNorm: 091855 TAKE 1 TABLET BY MOUTH EVERY NIGHT AT BEDTIME 11/17/2016 12/14/2016 Inactive clonazepam 0.5 mg tablet RxNorm: 997227 TAKE 1 TABLET BY MOUTH TWICE DAILY 11/17/2016 11/22/2016 Inactive Plavix 75 mg tablet RxNorm: 268090 1 Tablet(s) PO QD 11/06/201604/09 Inactive [SAVINGS FOR NON-COVERED DRUGS -- BIN:00 3585, PCN: ASPROD1, Group: XXXXX, ID# [id number], Questions: . THIS IS NOT INSURANCE.] Plavix 75 mg tablet RxNorm: 506549 1 Tablet(s) PO QD 08/28/201611/05 Inactive [SAVINGS FOR NON-COVERED DRUGS -- BIN:00 3585, PCN: ASPROD1, Group: XXXXX, ID# [id number], Questions: . THIS IS NOT INSURANCE.] Lidoderm 5 % topical patch RxNorm: 1227071 Application T OP 2 patches for 12hrs then off for 12hrs 08/28/2016 08/27/2016 Inactive clonazepam 0.5 mg tablet RxNorm: 242593 1 Tablet(s) PO BID 08/07/20 16 11/22/2016 Inactive pravastatin 20 mg tablet RxNorm: 019269 1 Tablet(s) PO QD 08/07/2016 11/04/2016 Inactive cyclobenzaprine 10 mg tablet RxNorm: 002559 1 Tablet(s) PO TID as needed for muscle spasm 08/07/2016 09/05/2016 Inactive [SAVINGS FOR NON -COVERED DRUGS -- BIN:298260, PCN: ASPROD1, Group: XXXXX, ID# [id number], Questions: . THIS IS NOT INSURANCE.] Plavix 75 mg tablet RxNorm: 966420 1 Tablet(s) PO QD 08/07/201608/27 Inactive [SAVINGS FOR NON-COVERED DRUGS -- BIN: 3585, PCN: ASPROD1, Group: XXXXX, ID# [id number], Questions: . THIS IS NOT INSURANCE.] carvedilol 3.125 mg tablet RxNorm: 282151 1 Tablet(s) P O BID to replace 6.25mg dose 08/07/2016 02/02/2017 Inactive clonazepam 0.5 mg tablet RxNorm: 922918 1 Tablet(s) PO BID 07/04/20 16 08/07/2016 Inactive Plavix 75 mg tablet RxNorm: 300744 1 TABLET(S) PO QD 06/20/201608/06 Inactive [SAVINGS FOR NON-COVERED DRUGS -- BIN:00 3585, PCN: ASPROD1, Group: XXXXX, ID# [id number], Questions: . THIS IS NOT INSURANCE.] clonazepam 0.5 mg tablet RxNorm: 106054 1 Tablet(s) PO BID 06/09/20 16 07/03/2016 Inactive pravastatin 20 mg tablet RxNorm: 496067 1 Tablet(s) PO QD 05/23/2016 08/06/2016 Inactive pravastatin 20 mg tablet RxNorm: 184526 1 Tablet(s) PO QD 05/23/2016 05/22/2016 Inactive carvedilol 3.125 mg tablet RxNorm: 053482 1 Tablet(s) P O BID to replace 6.25mg dose 05/10/2016 08/06/2016 Inactive carvedilol 3.125 mg tablet RxNorm: 404710 1 Tablet(s) P O BID to replace 6.25mg dose 05/10/2016 05/09/2016 Inactive clonazepam 0.5 mg tablet RxNorm: 132728 1 Tablet(s) PO BID 05/10/20 16 06/08/2016 Inactive carvedilol 6.25 mg tablet RxNorm: 425955 1 Tablet(s) PO QD 05/10/20 16 05/10/2016 Inactive simvastatin 40 mg tablet RxNorm: 482913 1 TABLET(S) PO QD 04/10/2016 05/09/2016 Inactive Medrol (Jose) 4 mg tablets in a dose pack RxNorm: 872192 Tablet(s) PO As Directed 01/13/2016 05/09/2016 Inactive cyclobenzaprine 10 mg tablet RxNorm: 404699 1 TABLET(S) PO TID NEEDED FOR SPASM 01/11/2016 03/10/2016 Inactive [SAVINGS FOR NON -COVERED DRUGS -- BIN:488723, PCN: ASPROD1, Group: XXXXX, ID# [id number], Questions: . THIS IS NOT INSURANCE.] Plavix 75 mg tablet RxNorm: 052866 1 Tablet(s) PO QD 12/30/201506/19 Inactive [SAVINGS FOR NON-COVERED DRUGS -- BIN:00 3585, PCN: ASPROD1, Group: XXXXX, ID# [id number], Questions: . THIS IS NOT INSURANCE.] Ambien 5 mg tablet RxNorm: 425661 TAKE 1 TABLET BY MOUTH EVERY DAY AT BEDTIME 11/15/2015 11/17/2016 Inactive simvastatin 40 mg tablet RxNorm: 963825 1 Tablet(s) PO QD 10/11/2015 01/12/2019 Inactive simvastatin 40 mg tablet RxNorm: 602012 1 Tablet(s) PO QD 10/08/2015 10/10/2015 Inactive Ambien 5 mg tablet RxNorm: 363263 TAKE 1 TABLET BY MOUTH EVERY NIGHT AT BEDTIME 07/27/2015 11/15/2015 Inactive Plavix 75 mg tablet RxNorm: 570584 1 Tablet(s) PO QD 06/28/201512/29 Inactive [SAVINGS FOR NON-COVERED DRUGS -- BIN:00 3585, PCN: ASPROD1, Group: XXXXX, ID# [id number], Questions: . THIS IS NOT INSURANCE.] Coreg 6.25 mg tablet RxNorm: 746241 1 TABLET(S) PO BID 04/19/2015 Inactive [SAVINGS FOR NON-COVERED DRUGS -- BIN:00 3585, PCN: ASPROD1, Group: XXXXX, ID# [id number], Questions: . THIS IS NOT INSURANCE.] simvastatin 40 mg tablet RxNorm: 210495 1 Tablet(s) PO QD 04/05/2015 04/04/2015 Inactive simvastatin 40 mg tablet RxNorm: 272565 1 Tablet(s) PO QD 04/05/2015 10/11/2015 Inactive Plavix 75 mg tablet RxNorm: 806456 1 TABLET(S) PO QD 03/22/201504/20 Inactive [SAVINGS FOR NON-COVERED DRUGS -- BIN:00 3585, PCN: ASPROD1, Group: XXXXX, ID# [id number], Questions: . THIS IS NOT INSURANCE.] Plavix 75 mg tablet RxNorm: 600402 1 Tablet(s) PO QD 03/22/201506/28 Inactive [SAVINGS FOR NON-COVERED DRUGS -- BIN:00 3585, PCN: ASPROD1, Group: XXXXX, ID# [id number], Questions: . THIS IS NOT INSURANCE.] Ambien 5 mg tablet RxNorm: 426324 1 Tablet(s) PO QHS 12/17/201407/28 Inactive [SAVINGS FOR NON-COVERED DRUGS -- BIN:00 3585, PCN: ASPROD1, Group: XXXXX, ID# [id number], Questions: . THIS IS NOT INSURANCE.] Coreg 6.25 mg tablet RxNorm: 108481 1 Tablet(s) PO BID 12/17/2014 Inactive [SAVINGS FOR NON-COVERED DRUGS -- BIN:00 3585, PCN: ASPROD1, Group: XXXXX, ID# [id number], Questions: . THIS IS NOT INSURANCE.] Plavix 75 mg tablet RxNorm: 885750 1 Tablet(s) PO QD 12/17/201403/16 Inactive [SAVINGS FOR NON-COVERED DRUGS -- BIN:00 3585, PCN: ASPROD1, Group: XXXXX, ID# [id number], Questions: . THIS IS NOT INSURANCE.] cyclobenzaprine 10 mg tablet RxNorm: 321335 1 Tablet(s) PO TID as needed for spasm 12/17/2014 03/16/2015 Inactive [SAVINGS FOR NON -COVERED DRUGS -- BIN:892364, PCN: ASPROD1, Group: XXXXX, ID# [id number], Questions: . THIS IS NOT INSURANCE.] Coreg 6.25 mg tablet RxNorm: 267853 1 Tablet(s) PO BID 10/21/201409/2014 Inactive [SAVINGS FOR NON-COVERED DRUGS -- BIN:00 3585, PCN: ASPROD1, Group: XXXXX, ID# [id number], Questions: . THIS IS NOT INSURANCE.] Plavix 75 mg tablet RxNorm: 285778 1 Tablet(s) PO QD 10/21/201412/16 Inactive [SAVINGS FOR NON-COVERED DRUGS -- BIN:00 3585, PCN: ASPROD1, Group: XXXXX, ID# XXXXXXX, Questions: . THIS IS NOT INSURANCE.] Plavix 75 mg tablet RxNorm: 211626 1 Tablet(s) PO QD Ne eds routine check up--last seen March 2012 09/21/2014 10/20/2014 Inactive [SAVINGS FOR UNINSURED PATIENTS -- BIN:685140, PCN: ASPROD1, Group: AME08, ID# [id number], Process claim through [employer], for questions: . THIS IS NOT INSURANCE.] Ambien 5 mg tablet RxNorm: 702032 1 Tablet(s) PO QHS 09/21/201412/16 Inactive [SAVINGS FOR UNINSURED PATIENTS -- BIN:0 44874, PCN: ASPROD1, Group: AME08, ID# [id number], Process claim through [employer], for questions: . THIS IS NOT INSURANCE.] Coreg 6.25 mg tablet RxNorm: 609124 1 Tablet(s) PO BID 09/21/201411/2014 Inactive [SAVINGS FOR UNINSURED PATIENTS -- BIN:0 80622, PCN: ASPROD1, Group: AME08, ID# [id number], Process claim through [employer], for questions: . THIS IS NOT INSURANCE.] Plavix 75 mg tablet RxNorm: 090147 1 Tablet(s) PO QD Ne eds routine check up--last seen March 2012 08/04/2014 09/02/2014 Inactive [SAVINGS FOR UNINSURED PATIENTS -- BIN:014205, PCN: ASPROD1, Group: AME08, ID# [id number], Process claim through [employer], for questions: . THIS IS NOT INSURANCE.] Plavix 75 mg tablet RxNorm: 840530 1 Tablet(s) PO QD Ne eds routine check up--last seen March 2012 08/03/2014 08/03/2014 Inactive Protonix 40 mg tablet,delayed release RxNorm: 937275 1 Tablet(s ) PO QD 06/08/2014 02/17/2019 Inactive [SAVINGS FOR UNINSUR ED PATIENTS -- BIN:522035, PCN: ASPROD1, Group: AME08, ID# [id number], Process claim through [employer], for questions: . THIS IS NOT INSURANCE.] hydrocodone 10 mg-acetaminophen 325 mg tablet RxNorm: 100228 1 Tablet(s) PO BID as needed for pain 02/18/2014 03/31/2015 Inactive Coreg 6.25 mg tablet RxNorm: 375036 1 Tablet(s) PO BID 02/02/2014 Inactive Protonix 40 mg granules delayed-release packet RxNorm: 684919 1 Tablet(s) PO QD 01/13/2014 06/08/2014 Inactive Plavix 75 mg tablet RxNorm: 104736 1 Tablet(s) PO QD Ne eds routine check up--last seen March 2012 01/13/2014 08/02/2014 Inactive Plavix 75 mg tablet RxNorm: 735574 1 Tablet(s) PO QD Ne eds routine check up--last seen March 2012 12/09/2013 01/07/2014 Inactive Coreg 6.25 mg tablet RxNorm: 674985 1 Tablet(s) PO BID 12/09/2013 Inactive Cymbalta 60 mg capsule,delayed release RxNorm: 118430 1 Capsule (s) PO QD 10/31/2013 01/12/2014 Inactive Coreg 6.25 mg tablet RxNorm: 826559 1 Tablet(s) PO BID 10/31/2013 Inactive Plavix 75 mg tablet RxNorm: 102867 1 Tablet(s) PO QD Ne eds routine check up--last seen March 2012 10/31/2013 11/29/2013 Inactive Coreg 6.25 mg tablet RxNorm: 881315 1 Tablet(s) PO BID 10/31/2013 Inactive atorvastatin 40 mg tablet RxNorm: 188476 1 Tablet(s) PO QD 10/31/1903/31/2015 Inactive Plavix 75 mg tablet RxNorm: 921942 1 Tablet(s) PO QD Ne eds routine check up--last seen March 2012 09/23/2013 10/30/2013 Inactive cyclobenzaprine 10 mg tablet RxNorm: 441066 1 Tablet(s) PO TID as needed for spasm 09/23/2013 No Stop Date Active cyclobenzaprine 10 mg tablet RxNorm: 131072 1 Tablet(s) PO TID as needed for spasm 07/04/2013 09/22/2013 Inactive atorvastatin 40 mg tablet RxNorm: 205002 1 Tablet(s) PO QD 06/23/20 13 10/30/2013 Inactive atorvastatin 40 mg tablet RxNorm: 409428 1 Tablet(s) PO QD 04/22/20 13 06/22/2013 Inactive Nucynta 50 mg tablet RxNorm: 394096 1-2 Tablet(s) PO Q6H as nee ded for pain 01/01/2013 01/12/2014 Inactive Ambien 5 mg tablet RxNorm: 155148 1 Tablet(s) PO QHS 10/16/201201/13 Inactive Plavix 75 mg tablet RxNorm: 836968 1 Tablet(s) PO QD 09/19/201209/13 Inactive Protonix 40 mg tablet,delayed release RxNorm: 612619 1 Tablet(s ) PO QD 09/19/2012 09/18/2012 Inactive simvastatin 40 mg tablet RxNorm: 173181 1 Tablet(s) PO QD 09/19/2012 02/23/2013 Inactive Protonix 40 mg tablet,delayed release RxNorm: 998161 1 Tablet(s ) PO QD 09/19/2012 09/13/2013 Inactive Ultram 50 mg tablet RxNorm: 831247 1-2 Tablet(s) PO QID as need ed for pain 09/19/2012 02/26/2017 Inactive propranolol 80 mg tablet RxNorm: 788585 1 Tablet(s) PO QHS 09/19/19 13 09/18/2012 Inactive Cymbalta 60 mg capsule,delayed release RxNorm: 261092 1 Capsule (s) PO QD 09/19/2012 09/18/2012 Inactive Cymbalta 60 mg capsule,delayed release RxNorm: 101833 1 Capsule (s) PO QD 09/19/2012 03/17/2013 Inactive propranolol 80 mg tablet RxNorm: 508278 1 Tablet(s) PO QHS 09/19/19 13 02/23/2013 Inactive hydrocodone-acetaminophen 10 mg-325 mg tablet RxNorm: 294628 2 1-2 Tablet(s) PO QID 07/25/2012 02/23/2013 Inactive Ambien 10 mg tablet RxNorm: 075066 1 Tablet(s) PO QHS as needed for sleep 07/10/2012 01/27/2013 Inactive propranolol 80 mg tablet RxNorm: 202398 1 Tablet(s) PO QHS 05/13/20 12 09/18/2012 Inactive hydrocodone-acetaminophen 10 mg-325 mg tablet RxNorm: 765156 2 1-2 Tablet(s) PO QID 05/02/2012 No Stop Date Active Restoril 15 mg Cap RxNorm: 004435 1-2 Capsule(s) PO QHS 05/02/2012 Inactive propranolol 80 mg tablet RxNorm: 486511 1 Tablet(s) PO QHS 05/02/2005/12/2012 Inactive Chantix Starting Month Box 0.5 mg (11)-1 mg (42) Tabs in a Dose Pack RxNorm: 555295 Tablet(s) PO As Directed 04/01/2012 01/27/2013 Inactive simvastatin 40 mg tablet RxNorm: 678510 1 Tablet(s) PO QD 03/28/2012 09/18/2012 Inactive simvastatin 40 mg Tab RxNorm: 300484 1 Tablet(s) PO QD 03/22/201207/2012 Inactive Effient 10 mg Tab RxNorm: 251763 1 Tablet(s) PO QD 03/22/2012 012 Inactive Prilosec 40 mg Capsule, delayed release RxNorm: 671375 1 Capsul e(s) PO QD 03/22/2012 09/18/2012 Inactive Prilosec 40 mg Capsule, delayed release RxNorm: 404573 1 Capsul e(s) PO QD 03/19/2012 03/21/2012 Inactive Cymbalta 60 mg capsule,delayed release RxNorm: 052080 1 Capsule (s) PO QD 03/04/2012 08/30/2012 Inactive hydrocodone-acetaminophen 10 mg-325 mg Tab RxNorm: 2279101 1-2 T ablet(s) PO QID 01/23/2012 No Stop Date Active Cymbalta 60 mg Capsule, delayed release RxNorm: 605571 1 Capsul e(s) PO QD 01/23/2012 03/03/2012 Inactive Cipro 500 mg Tab RxNorm: 322636 1 Tablet(s) PO BID 12/20/2011 012 Inactive Cymbalta 60 mg Capsule, delayed release RxNorm: 535246 1 Capsul e(s) PO QD 12/13/2011 01/22/2012 Inactive nortriptyline 75 mg Cap RxNorm: 953859 1 Capsule(s) PO QHS 11/29/19 12 04/02/2012 Inactive Cymbalta 60 mg Cap RxNorm: 591445 1 Capsule(s) PO QD 10/24/201112/11 Inactive propranolol 80 mg Tab RxNorm: 932869 1 Tablet(s) PO QHS 10/24/2011 Inactive hydrocodone-acetaminophen 10 mg-325 mg Tab RxNorm: 0770532 1-2 T ablet(s) PO QID 09/29/2011 No Stop Date Active hydrocodone-acetaminophen 10 mg-325 mg Tab RxNorm: 8449232 1-2 T ablet(s) PO QID 07/25/2011 No Stop Date Active hydrocodone-acetaminophen 10 mg-325 mg Tab RxNorm: 1924865 1-2 T ablet(s) PO QID 02/14/2011 No Stop Date Active Prilosec 40 mg Cap RxNorm: 570959 1 Capsule(s) PO 01/03/2011 01/13/20 19 Inactive nortriptyline 75 mg Cap RxNorm: 036236 1 Capsule(s) PO QHS 01/04/20 11 07/01/2011 Inactive Neurontin 600 mg Tab RxNorm: 259411 1 Tablet(s) PO QHS 12/08/201011/2011 Inactive hydrocodone-acetaminophen 5 mg-500 mg Tab RxNorm: 177880 2 Tablet(s) PO Q4-6H prn 10/20/2010 01/08/2011 Inactive Diltzac ER 240 mg Cap RxNorm: 284930 1 Capsule(s) PO QD 07/14/2010 Inactive Nortriptyline 75 mg Cap RxNorm: 984937 1 Capsule(s) PO QHS 05/09/20 10 01/12/2019 Inactive Neurontin 600 mg Tab RxNorm: 488519 1 Tablet(s) PO QD 03/17/201012/17 Inactive Nortriptyline 75 mg Cap RxNorm: 981115 1 Capsule(s) PO 01/12/2010 Inactive Nortriptyline 50 mg Cap RxNorm: 517278 1 Capsule(s) PO QHS 01/13/20 10 01/11/2010 Inactive Diltzac ER 240 mg Cap RxNorm: 831048 1 Capsule(s) PO QD 12/06/2009 Inactive aspirin 81 mg Tab RxNorm: 421986 1 Tablet(s) PO QD No Start Date Active Vitamin D3 2,000 unit tablet RxNorm: 809234 1 Tablet(s) PO QD No Star t Date Active rrnwjlukx-rranjntna-rpqadx complex no.233 oral RxNorm: oral No Start Date Active primidone 50 mg tablet RxNorm: 435912 2 Tablet(s) PO BID No Start Date Active Prilosec 40 mg Capsule, delayed release RxNorm: 253955 1 Capsul e(s) PO QD No Start Date 03/18/2012 Inactive Prilosec 20 mg Cap RxNorm: 773560 1 Capsule(s) PO QHS No Start Date 0 01/02/2011 Inactive primidone 50 mg tablet RxNorm: 963810 1/2 Tablet(s) PO QHS for 1week then go full tab if needed No Start Date 05/01/2017 Inactive ProAir HFA 90 mcg/actuation aerosol inhaler RxNorm: 797556 2 Puff(s) INH Q4H as needed No Start Date 10/29/2017 Inactive clonazepam 0.5 mg tablet RxNorm: 805788 1/2 Tablet(s) PO BID No Sta rt Date 02/12/2017 Inactive Pepcid AC 10 mg Tab RxNorm: 351230 1 Tablet(s) PO QAM No Start Date 0 02/19/2011 Inactive Coreg Oral RxNorm: Oral No Start Date 01/12/2014 Inactive primidone 50 mg tablet RxNorm: 366067 1/2 Tablet(s) PO QD for 7 days then increase to 1 tablet at bedtime No Start Date 01/08/2017 Inactive Medrol (Jose) 4 mg tablets in a dose pack RxNorm: 247008 Tablet(s) PO As Directed No Start Date 01/12/2016 Inactive Plavix 75 mg tablet RxNorm: 670844 1 Tablet(s) PO QD No Start Date Inactive cyclobenzaprine 10 mg tablet RxNorm: 772076 1 Tablet(s) PO TID as needed for spasm No Start Date 07/03/2013 Inactive Bevespi Aerosphere 9 mcg-4.8 mcg HFA aerosol inhaler RxNorm: 3889596 2 Puff(s) INH BID No Start Date 02/18/2019 Inactive tramadol 50 mg tablet RxNorm: 021424 1-2 Tablet(s) PO TID as ne eded for pain No Start Date 01/12/2019 Inactive clonazepam 1 mg tablet RxNorm: 459354 1 Tablet(s) PO QAM No Start D ate 09/18/2018 Inactive hydrocodone-acetaminophen 5 mg-500 mg Tab RxNorm: 603878 2 Tablet(s) PO Q4-6H prn No Start Date 10/19/2010 Inactive lisinopril 20 mg Tab RxNorm: 340778 1/2 Tablet(s) PO QD No Start Da te 03/12/2011 Inactive Lyrica 75 mg capsule RxNorm: 483704 1 Capsule(s) PO QHS No Start Da te 10/08/2019 Inactive Protonix 40 mg tablet,delayed release RxNorm: 143048 1 Tablet(s ) PO QD No Start Date 06/07/2014 Inactive Lipitor Oral RxNorm: Oral No Start Date 01/12/2014 Inactive primidone 50 mg tablet RxNorm: 053989 2 Tablet(s) PO QAM and 1 tablet at HS No Start Date 02/17/2019 Inactive hydrocodone-acetaminophen 10 mg-325 mg Tab RxNorm: 8942807 1-2 T ablet(s) PO QID No Start Date 02/13/2011 Inactive Ultram 50 mg tablet RxNorm: 618696 1-2 Tablet(s) PO QID as need ed for pain No Start Date 09/18/2012 Inactive Effient 10 mg Tab RxNorm: 193459 1 Tablet(s) PO QD No Start Date 01/2012 Inactive Bevespi Aerosphere 9 mcg-4.8 mcg HFA aerosol inhaler RxNorm: 0965150 2 Puff(s) INH BID No Start Date 10/29/2017 Inactive Neurontin Oral RxNorm: Oral No Start Date 01/12/2010 Inactive primidone 50 mg tablet RxNorm: 309783 1 Tablet(s) PO QD No Start Da te 01/12/2019 Inactive Chantix Starting Month Box 0.5 mg (11)-1 mg (42) Tabs in a Dose Pack RxNorm: 362108 Tablet(s) PO No Start Date 03/31/2012 Inactive atenolol 25 mg Tab RxNorm: 499441 1 Tablet(s) PO QD No Start Date 02/2012 Inactive Neurontin 600 mg Tab RxNorm: 563547 1 Tablet(s) PO QD No Start Date 0 03/16/2010 Inactive Nucynta 50 mg tablet RxNorm: 488368 1-2 Tablet(s) PO Q6H as nee ded for pain No Start Date 12/31/2012 Inactive simvastatin 40 mg Tab RxNorm: 732344 1 Tablet(s) PO QD No Start Date 03/21/2012 Inactive Medication Administered No Medication Administered data Immunizations Vaccine Codes Date Status Influenza CVX: 135 07/04/2017 Complete Results Observation Observation Code Item Item Code Result Date S ervice Location COMPLETE BLOOD COUNT [id number] WBC 4.9 10e9/L 09/30/19 20 Unknown COMPLETE BLOOD COUNT [id number] RBC 4.65 10e12/L 2019 Unknown COMPLETE BLOOD COUNT [id number] HEMOGLOBIN 13.8 g/dL 09/30/19 20 Unknown COMPLETE BLOOD COUNT [id number] HEMATOCRIT 42.3 % 09/30/19 20 Unknown COMPLETE BLOOD COUNT [id number] MCV 91.0 fL 0 Unknown COMPLETE BLOOD COUNT [id number] MCH 29.7 pg 0 Unknown COMPLETE BLOOD COUNT [id number] MCHC 32.6 g/dL 0 Unknown COMPLETE BLOOD COUNT [id number] PLATELET COUNT 230 10e9/L Unknown COMPLETE BLOOD COUNT 0295954 Mean Plt Volume 9.9 fL Unknown COMPLETE BLOOD COUNT 6589388 Neut Auto 52.5 % 0 Unknown COMPLETE BLOOD COUNT [id number] Lymph Auto 30.8 % 09/30/19 20 Unknown COMPLETE BLOOD COUNT [id number] Hand Auto 11.2 % 0 Unknown COMPLETE BLOOD COUNT [id number] RDW 13.5 % 0 Unknown COMPLETE BLOOD COUNT [id number] Eos Auto 5.1 % 0 Unknown COMPLETE BLOOD COUNT 1280874 Baso Auto 0.4 % 0 Unknown COMPLETE BLOOD COUNT [id number] Neutrophil Abs 2.57 10e9/L Unknown COMPLETE BLOOD COUNT [id number] Lymphocyte Abs 1.51 10e9/L Unknown COMPLETE BLOOD COUNT [id number] Monocyte Abs 0.55 10e9/L 09/17 Unknown COMPLETE BLOOD COUNT [id number] Eosinophil Abs 0.25 10e9/L Unknown COMPLETE BLOOD COUNT [id number] RDW-SD 43.9 fL 0 Unknown COMPLETE BLOOD COUNT [id number] Basophil Abs 0.02 10e9/L 09/17 Unknown GFR CALC [id number] GFR Non Afr Amr >60 mL/min 09/30/2019 Un known GFR CALC [id number] GFR Afr Amr >60 mL/min 09/30/2019 Unknow n THYROID STIMULATING HORMONE 44893 TSH 1.129 uIU/mL 09/30/2019 Unknown PSA EQUIMOLAR BARBIE 50348 PSA Total 0.77 ng/mL 0 Unknown [facility] 88915 Cholesterol 192 mg/dL 09/30/2019 Unkno wn [facility] 49165 Triglyceride 86 mg/dL 09/30/2019 Unkn own L[facility] 66851 HDL CHOLESTEROL 64 mg/dL 09/30/2019 U nknown L[facility] GROUP 94974 Chol/HDL Ratio 3.00 ratio 09/30/2019 U nknown L[facility] GROUP 59227 NON-HDL Chol 128 mg/dL 09/30/2019 Unkn own [facility] 48415 LDL Cholesterol 111 mg/dL 09/30/2019 U nknown COMPREHENSIVE METABOLIC 86140 AST 17 U/L 2019 Unknown COMPREHENSIVE METABOLIC 46081 ALT 10 U/L 2019 Unknown COMPREHENSIVE METABOLIC 18406 BUN 13 mg/dL 2019 Unknown COMPREHENSIVE METABOLIC 64926 ALBUMIN 4.3 g/dL 2019 Unknown COMPREHENSIVE METABOLIC 52778 CHLORIDE 102 mmol/L 09/30 Unknown COMPREHENSIVE METABOLIC 71584 Bili Total 0.6 mg/dL 09/30 Unknown COMPREHENSIVE METABOLIC 13727 ALK PHOS 91 U/L 2019 Unknown COMPREHENSIVE METABOLIC 65452 SODIUM 138 mmol/L 09/30 Unknown COMPREHENSIVE METABOLIC 85813 CREATININE 1.09 mg/dL 09/17 Unknown COMPREHENSIVE METABOLIC 77949 CALCIUM 9.0 mg/dL 2019 Unknown COMPREHENSIVE METABOLIC 32450 POTASSIUM 4.5 mmol/L 09/30 Unknown COMPREHENSIVE METABOLIC 47510 Total Protein 6.8 g/dL Unknown COMPREHENSIVE METABOLIC 91585 Glucose 91 mg/dL 2019 Unknown COMPREHENSIVE METABOLIC 02833 Bicarbonate 28 mmol/L 09/17 Unknown COMPREHENSIVE METABOLIC 82949 AGAP 8 mmol/L 2019 Unknown COMPLETE BLOOD COUNT [id number] WBC 4.9 10e9/L 09/04/20 18 Unknown COMPLETE BLOOD COUNT [id number] RBC 4.42 10e12/L 2017 Unknown COMPLETE BLOOD COUNT [id number] HEMOGLOBIN 13.4 g/dL 09/04/20 18 Unknown COMPLETE BLOOD COUNT 5377349 HEMATOCRIT 40.5 % 09/04/20 18 Unknown COMPLETE BLOOD COUNT 0398692 MCV 91.6 fL 8 Unknown COMPLETE BLOOD COUNT 7243403 MCH 30.3 pg 8 Unknown COMPLETE BLOOD COUNT 4255202 MCHC 33.1 g/dL 8 Unknown COMPLETE BLOOD COUNT 3390434 PLATELET COUNT 224 10e9/L Unknown COMPLETE BLOOD COUNT 0314573 Mean Plt Volume 9.9 fL Unknown COMPLETE BLOOD COUNT 9590701 Neut Auto 60.8 % 8 Unknown COMPLETE BLOOD COUNT [id number] Lymph Auto 26.8 % 09/04/20 18 Unknown COMPLETE BLOOD COUNT 1265052 Hand Auto 10.4 % 8 Unknown COMPLETE BLOOD COUNT 2033756 RDW 12.8 % 8 Unknown COMPLETE BLOOD COUNT 1647350 Eos Auto 1.6 % 8 Unknown COMPLETE BLOOD COUNT 6188048 Baso Auto 0.4 % 8 Unknown COMPLETE BLOOD COUNT 3912782 Neutrophil Abs 2.98 10e9/L Unknown COMPLETE BLOOD COUNT 5341018 Lymphocyte Abs 1.31 10e9/L Unknown COMPLETE BLOOD COUNT [id number] Monocyte Abs 0.51 10e9/L 08/17 Unknown COMPLETE BLOOD COUNT [id number] Eosinophil Abs 0.08 10e9/L Unknown COMPLETE BLOOD COUNT 2122701 RDW-SD 41.6 fL 8 Unknown COMPLETE BLOOD COUNT [id number] Basophil Abs 0.02 10e9/L 08/17 Unknown COMPREHENSIVE METABOLIC 73597 AST 16 U/L 2017 Unknown COMPREHENSIVE METABOLIC 17583 ALT 8 U/L 2017 Unknown COMPREHENSIVE METABOLIC 05080 BUN 12 mg/dL 2017 Unknown COMPREHENSIVE METABOLIC 51064 ALBUMIN 4.4 g/dL 2017 Unknown COMPREHENSIVE METABOLIC 15119 CHLORIDE 107 mmol/L 09/04 Unknown COMPREHENSIVE METABOLIC 99411 Bili Total 1.0 mg/dL 09/04 Unknown COMPREHENSIVE METABOLIC 03907 ALK PHOS 58 U/L 2017 Unknown COMPREHENSIVE METABOLIC 87750 SODIUM 142 mmol/L 09/04 Unknown COMPREHENSIVE METABOLIC 66615 CREATININE 0.97 mg/dL 08/17 Unknown COMPREHENSIVE METABOLIC 67906 CALCIUM 9.2 mg/dL 2017 Unknown COMPREHENSIVE METABOLIC 43673 POTASSIUM 4.6 mmol/L 09/04 Unknown COMPREHENSIVE METABOLIC 24539 Total Protein 6.5 g/dL Unknown COMPREHENSIVE METABOLIC 78096 Glucose 96 mg/dL 2017 Unknown COMPREHENSIVE METABOLIC 60782 Bicarbonate 29 mmol/L 08/17 Unknown COMPREHENSIVE METABOLIC 20732 AGAP 6 mmol/L 2017 Unknown LIPID GROUP 99650 Cholesterol 182 mg/dL 09/04/2018 Unkno wn LIPID GROUP 04034 Triglyceride 84 mg/dL 09/04/2018 Unkn own LIPID GROUP 26554 HDL CHOLESTEROL 76 mg/dL 09/04/2018 U nknown LIP[facility] GROUP 76840 Chol/HDL Ratio 2.39 ratio 09/04/2018 U nknown LIP[facility] GROUP 21559 NON-HDL Chol 106 mg/dL 09/04/2018 Unkn own LIPID GROUP 03638 LDL Cholesterol 89 mg/dL 09/04/2018 U nknown GFR CALC 0941457 GFR Non Afr Amr >60 mL/min 09/04/2018 Un known GFR CALC 2810272 GFR Afr Amr >60 mL/min 09/04/2018 Unknow n THYROID STIMULATING HORMONE 98172 TSH 0.713 uIU/mL 09/04/2018 Unknown PSA EQUIMOLAR BARBIE 04702 PSA Total 0.66 ng/mL 8 Unknown A FOOD C P [id number] [place] Cl Class 0 11/17/2017 Unknown A FOOD C P 9093473 [place] Ct <0.35 kU/L 11/17/2017 Unknow n A FOOD C P [id number] [place] Cl Class 0 11/17/2017 Unkn own A FOOD C P [id number] [place] Ct <0.35 kU/L 11/17/2017 Unk nown A FOOD C P [id number] Egg White Cl Class 0 11/17/2017 Unkno wn A FOOD C P 8945878 Egg White Ct <0.35 kU/L 11/17/2017 Unkn own A FOOD C P 2247962 Egg Yolk Cl Class 0 11/17/2017 Unknow n A FOOD C P 1652037 Egg Yolk Ct <0.35 kU/L 11/17/2017 Unkno wn A FOOD C P 3140197 Cow Milk Cl Class 0 11/17/2017 Unknow n A FOOD C P 0011799 Cow Milk Ct <0.35 kU/L 11/17/2017 Unkno wn A FOOD C P 8630172 Peanut Cl Class 0 11/17/2017 Unknown A FOOD C P 6297002 Peanut Ct <0.35 kU/L 11/17/2017 Unknown A FOOD C P 5657303 Shrimp Cl Class 0 11/17/2017 Unknown A FOOD C P 3905952 [place] Ct <0.35 kU/L 11/17/2017 Unknown A FOOD C P [id number] [place] Cl Class 0 11/17/2017 Unknown A FOOD C P 9807615 [place] Ct <0.35 kU/L 11/17/2017 Unknow n A FOOD C P 4878142 [place] Cl Class 0 11/17/2017 Unknown A FOOD C P [id number] Wheat Ct <0.35 kU/L 11/17/2017 Unknown A FOOD C P 0962216 Potato Cl Class 0 11/17/2017 Unknown A FOOD C P [id number] Potato Ct <0.35 kU/L 11/17/2017 Unknown A FOOD C P 1493408 Beef Cl Class 2 11/17/2017 Unknown A FOOD C P 0633497 Beef Ct 0.88 kU/L 11/17/2017 Unknown A FOOD C P 8374829 [place] Cl Class 0 11/17/2017 Unknown A FOOD C P 1920201 [place] Ct <0.35 kU/L 11/17/2017 Unknown A FOOD C P 7568541 P[place] Cl Class 0 11/17/2017 Unknown A FOOD C P [id number] [place] Ct <0.35 kU/L 11/17/2017 Unknown A FOOD C P [id number] [place] Cl Class 0 11/17/2017 Unknown A FOOD C P [id number] [place] Ct <0.35 kU/L 11/17/2017 Unknown A FOOD C P 2911071 [place] Cl Class 0 11/17/2017 Unkn own A FOOD C P [id number] [place] Ct <0.35 kU/L 11/17/2017 Unk nown A FOOD C P 9463316 [place] Cl Class 0 11/17/2017 Unknown A FOOD C P [id number] [place] Ct <0.35 kU/L 11/17/2017 Unknown A FOOD C P [id number] [place] Cl Class 0 11/17/2017 Unknown A FOOD C P 8713694 [place] Ct <0.35 kU/L 11/17/2017 Unknown A FOOD C P [id number] [place] [facility] Class 0 11/17/2017 Unknown A FOOD C P [id number] [place] <0.35 kU/L 11/17/2017 Unknown A FOOD C P 9855364 [place] Cl Class 0 11/17/2017 Unknown A FOOD C P 9386972 [place] Ct <0.35 kU/L 11/17/2017 Unknown A FOOD C P 5710987 Oat Cl Class 0 11/17/2017 Unknown A FOOD C P [id number] Oat Ct <0.35 kU/L 11/17/2017 Unknown A FOOD C P 3920616 [place] Cl Class 0 11/17/2017 Unknown A FOOD C P 1357049 [place] Ct <0.35 kU/L 11/17/2017 Unknown A FOOD C P [id number] [place] Meat CL Class 0 11/17/2017 Un known A FOOD C P 0582605 Chicken Meat Ct <0.35 kU/L 11/17/2017 U nknown A FOOD C P 1154830 [place] Cl Class 0 11/17/2017 Unknown A FOOD C P 6582171 [place] Ct <0.35 kU/L 11/17/2017 Unknown A FOOD C P 8172911 P[place] Meat Cl Class 0 11/17/2017 Unkn own A FOOD C P [id number] [place]ec[place] Meat Ct <0.35 kU/L 11/17/2017 Unk nown A NUTS PNL 9530271 Peanut Cl Class 0 11/17/2017 Unknown A NUTS PNL 4940278 Peanut Ct <0.35 kU/L 11/17/2017 Unknown A NUTS PNL 3592871 [place] Meat Cl Class 0 11/17/2017 Unk nown A NUTS PNL 3776661 [place] Ct <0.35 kU/L 11/17/2017 Un known A NUTS PNL 0424049 [place] Cl Class 0 11/17/2017 Unkn own A NUTS PNL 7759195 [place] Ct <0.35 kU/L 11/17/2017 Unk nown A NUTS PNL 5262897 [place] Cl Class 0 11/17/2017 Unknown A NUTS PNL 0776263 [place] Ct <0.35 kU/L 11/17/2017 Unknown A NUTS PNL 6271360 [place] Cl Class 0 11/17/2017 Unknow n A NUTS PNL 8696435 [place] Ct <0.35 kU/L 11/17/2017 Unkno wn A NUTS PNL 0059767 [place] Cl Class 0 11/17/2017 Unkno wn A NUTS PNL 5484496 [place] Ct <0.35 kU/L 11/17/2017 Unkn own A NUTS PNL 9003844 [place] Cl Class 0 11/17/2017 Unknown A NUTS PNL 9198705 [place] Ct <0.35 kU/L 11/17/2017 Unknown A NUTS PNL 8125700 [place] Cl Class 0 11/17/2017 Unkno wn A NUTS PNL [id number] [place] Ct <0.35 kU/L 11/17/2017 Unkn own A NUTS PNL 2829969 Allergen Interp See Note 11/17/2017 Un known A FRT/VG P [id number] [place] Cl Class 0 11/17/2017 Unkn own A FRT/VG P 5651735 [place] Ct <0.35 kU/L 11/17/2017 Unk nown A FRT/VG P 6246844 [place] Cl Class 0 11/17/2017 Unknown A FRT/VG P 5969891 [place] Ct <0.35 kU/L 11/17/2017 Unknown A FRT/VG P 3867172 [place] Cl Class 0 11/17/2017 Unkn own A FRT/VG P 5837796 [place] [facility] <0.35 kU/L 11/17/2017 Unk nown A FRT/VG P [id number] [place] Cl Class 0 11/17/2017 Unknown A FRT/VG P 5117919 [place] Ct <0.35 kU/L 11/17/2017 Unknown A FRT/VG P [id number] [place] Cl Class 0 11/17/2017 Unknown A FRT/VG P [id number] [place] Ct <0.35 kU/L 11/17/2017 Unknown A FRT/VG P 9453330 [place] Cl Class 1 11/17/2017 Unknown A FRT/VG P [id number] [place] Ct 0.48 kU/L 11/17/2017 Unknown A FRT/VG P [id number] [place] Cl Class 0 11/17/2017 Unk nown A FRT/VG P [id number] [place] [facility] <0.35 kU/L 11/17/2017 Un known A FRT/VG P 1227008 [place] Cl Class 0 11/17/2017 Unk nown A FRT/VG P [id number] [place] Ct <0.35 kU/L 11/17/2017 Un known A FRT/VG P [id number] [place] Cl Class 0 11/17/2017 Unknown A FRT/VG P [id number] [place] Ct <0.35 kU/L 11/17/2017 Unknown A FRT/VG P 7535823 [place] Cl Class 0 11/17/2017 Unknown A FRT/VG P 4910643 [place] Ct <0.35 kU/L 11/17/2017 Unknown A FRT/VG P 8920435 [place] Cl Class 0 11/17/2017 Unkn own A FRT/VG P 8943888 [place] Ct <0.35 kU/L 11/17/2017 Unk nown A FRT/VG P [id number] Swt [place] Cl Class 0 11/17/2017 Unkn own A FRT/VG P [id number] Swt [place] Ct <0.35 kU/L 11/17/2017 Unk nown THYROID STIMULATING HORMONE 86070 TSH 1.371 uIU/mL 09/03/2017 Unknown FREE T4 90601 T4 Free 1.26 ng/dL 09/03/2017 Unknown ASSAY TRIIODOTHYRONINE (T3) 40908 T3 Total 0.9 ng/mL Unknown COMPLETE BLOOD COUNT [id number] WBC 5.9 10e9/L 07/31/20 17 Unknown COMPLETE BLOOD COUNT [id number] RBC 4.64 10e12/L 2016 Unknown COMPLETE BLOOD COUNT [id number] HEMOGLOBIN 14.2 g/dL 07/31/20 17 Unknown COMPLETE BLOOD COUNT 5764312 HEMATOCRIT 42.1 % 07/31/20 17 Unknown COMPLETE BLOOD COUNT 2443451 MCV 90.7 fL 7 Unknown COMPLETE BLOOD COUNT 7608460 MCH 30.6 pg 7 Unknown COMPLETE BLOOD COUNT 2169298 MCHC 33.7 g/dL 7 Unknown COMPLETE BLOOD COUNT 8717438 PLATELET COUNT 195 10e9/L Unknown COMPLETE BLOOD COUNT 1463677 Mean Plt Volume 10.0 fL Unknown COMPLETE BLOOD COUNT 2292382 Neut Auto 47.5 % 7 Unknown COMPLETE BLOOD COUNT 2127494 Lymph Auto 37.4 % 07/31/20 17 Unknown COMPLETE BLOOD COUNT 4097143 Hand Auto 11.7 % 7 Unknown COMPLETE BLOOD COUNT 2640397 Eos Auto 3.2 % 7 Unknown COMPLETE BLOOD COUNT 3838751 RDW 12.8 % 7 Unknown COMPLETE BLOOD COUNT 8923172 Baso Auto 0.2 % 7 Unknown COMPLETE BLOOD COUNT 3524280 Neutrophil Abs 2.80 10e9/L Unknown COMPLETE BLOOD COUNT 2430039 Lymphocyte Abs 2.21 10e9/L Unknown COMPLETE BLOOD COUNT 3688963 Monocyte Abs 0.69 10e9/L 07/18 Unknown COMPLETE BLOOD COUNT 3481798 Eosinophil Abs 0.19 10e9/L Unknown COMPLETE BLOOD COUNT 8606257 RDW-SD 41.6 fL 7 Unknown COMPLETE BLOOD COUNT 1000575 Basophil Abs 0.01 10e9/L 07/18 Unknown LIPID GROUP 67429 Cholesterol 186 mg/dL 07/31/2017 Unkno wn LIPID GROUP 42266 Triglyceride 129 mg/dL 07/31/2017 Unkn own LIPID GROUP 76359 HDL CHOLESTEROL 79 mg/dL 07/31/2017 U nknown LIPID GROUP 40317 Chol/HDL Ratio 2.35 ratio 07/31/2017 U nknown LIPID GROUP 08490 NON-HDL Chol 107 mg/dL 07/31/2017 Unkn own LIPID GROUP 20486 LDL Cholesterol 81 mg/dL 07/31/2017 U nknown GFR CALC 5962929 GFR Non Afr Amr >60 mL/min 07/31/2017 Un known GFR CALC 9559495 GFR Afr Amr >60 mL/min 07/31/2017 Unknow n COMPREHENSIVE METABOLIC 90937 AST 19 U/L 2016 Unknown COMPREHENSIVE METABOLIC 73033 ALT 12 U/L 2016 Unknown COMPREHENSIVE METABOLIC 05599 BUN 15 mg/dL 2016 Unknown COMPREHENSIVE METABOLIC 91259 ALBUMIN 4.4 g/dL 2016 Unknown COMPREHENSIVE METABOLIC 64740 CHLORIDE 102 mmol/L 07/31 Unknown COMPREHENSIVE METABOLIC 15513 Bili Total 0.9 mg/dL 07/31 Unknown COMPREHENSIVE METABOLIC 84005 ALK PHOS 53 U/L 2016 Unknown COMPREHENSIVE METABOLIC 45399 SODIUM 138 mmol/L 07/31 Unknown COMPREHENSIVE METABOLIC 70289 CREATININE 1.06 mg/dL 07/18 Unknown COMPREHENSIVE METABOLIC 24656 CALCIUM 9.3 mg/dL 2016 Unknown COMPREHENSIVE METABOLIC 96949 POTASSIUM 4.0 mmol/L 07/31 Unknown COMPREHENSIVE METABOLIC 72344 Total Protein 6.8 g/dL Unknown COMPREHENSIVE METABOLIC 02703 Glucose 86 mg/dL 2016 Unknown COMPREHENSIVE METABOLIC 33647 Bicarbonate 28 mmol/L 07/18 Unknown COMPREHENSIVE METABOLIC 27951 AGAP 8 mmol/L 2016 Unknown COMPREHENSIVE METABOLIC 53983 AST 18 U/L 2015 Unknown COMPREHENSIVE METABOLIC 49955 ALT 9 U/L 2015 Unknown COMPREHENSIVE METABOLIC 43589 BUN 11 mg/dL 2015 Unknown COMPREHENSIVE METABOLIC 56764 ALBUMIN 4.2 g/dL 2015 Unknown COMPREHENSIVE METABOLIC 55173 CHLORIDE 104 mmol/L 05/19 Unknown COMPREHENSIVE METABOLIC 91055 Bili Total 1.2 mg/dL 05/19 Unknown COMPREHENSIVE METABOLIC 86326 ALK PHOS 54 U/L 2015 Unknown COMPREHENSIVE METABOLIC 53221 SODIUM 140 mmol/L 05/19 Unknown COMPREHENSIVE METABOLIC 37540 CREATININE 1.03 mg/dL 10/2015 Unknown COMPREHENSIVE METABOLIC 54781 CALCIUM 9.3 mg/dL 2015 Unknown COMPREHENSIVE METABOLIC 93914 POTASSIUM 4.9 mmol/L 05/19 Unknown COMPREHENSIVE METABOLIC 67502 Total Protein 6.7 g/dL Unknown COMPREHENSIVE METABOLIC 08486 Glucose 92 mg/dL 2015 Unknown COMPREHENSIVE METABOLIC 50046 Bicarbonate 28 mmol/L 10/2015 Unknown COMPREHENSIVE METABOLIC 43706 AGAP 8 mmol/L 2015 Unknown THYROID STIMULATING HORMONE 11863 TSH 1.545 uIU/mL 05/19/2016 Unknown GFR CALC 9154765 GFR Non Afr Amr >60 mL/min 05/19/2016 Un known GFR CALC 5395413 GFR Afr Amr >60 mL/min 05/19/2016 Unknow n VITAMIN B 12 46649 VITAMIN B12 298 pg/mL 05/19/2016 Unkn own COMPLETE BLOOD COUNT [id number] WBC 5.2 10e9/L 05/19/20 16 Unknown COMPLETE BLOOD COUNT [id number] RBC 4.34 10e12/L 2015 Unknown COMPLETE BLOOD COUNT 2483146 HEMOGLOBIN 12.9 g/dL 05/19/20 16 Unknown COMPLETE BLOOD COUNT 8145724 HEMATOCRIT 38.9 % 05/19/20 16 Unknown COMPLETE BLOOD COUNT 0090997 MCV 89.6 fL 6 Unknown COMPLETE BLOOD COUNT 8315124 MCH 29.7 pg 6 Unknown COMPLETE BLOOD COUNT 4182805 MCHC 33.2 g/dL 6 Unknown COMPLETE BLOOD COUNT 0326722 PLATELET COUNT 200 10e9/L 10/2015 Unknown COMPLETE BLOOD COUNT 9738586 Mean Plt Volume 10.1 fL 10/2015 Unknown COMPLETE BLOOD COUNT 2518521 Neut Auto 45.4 % 6 Unknown COMPLETE BLOOD COUNT 2601426 Lymph Auto 35.6 % 05/19/20 16 Unknown COMPLETE BLOOD COUNT 3420942 Hand Auto 11.9 % 6 Unknown COMPLETE BLOOD COUNT 8902903 RDW 12.7 % 6 Unknown COMPLETE BLOOD COUNT 5663597 Eos Auto 6.7 % 6 Unknown COMPLETE BLOOD COUNT 0231510 Baso Auto 0.4 % 6 Unknown COMPLETE BLOOD COUNT 7627927 Neutrophil Abs 2.36 10e9/L Unknown COMPLETE BLOOD COUNT 7657591 Lymphocyte Abs 1.85 10e9/L Unknown COMPLETE BLOOD COUNT 4808132 Monocyte Abs 0.62 10e9/L 10/2015 Unknown COMPLETE BLOOD COUNT 1491408 Eosinophil Abs 0.35 10e9/L Unknown COMPLETE BLOOD COUNT 1805012 RDW-SD 40.6 fL 6 Unknown COMPLETE BLOOD COUNT 9754026 Basophil Abs 0.02 10e9/L 10/2015 Unknown LIPID GROUP 95793 Cholesterol 197 mg/dL 05/19/2016 Unkno wn LIPID GROUP 22481 Triglyceride 92 mg/dL 05/19/2016 Unkn own LIPID GROUP 13226 HDL CHOLESTEROL 58 mg/dL 05/19/2016 U nknown LIPID GROUP 81273 Chol/HDL Ratio 3.40 ratio 05/19/2016 U nknown LIPID GROUP 82949 NON-HDL Chol 139 mg/dL 05/19/2016 Unkn own LIPID GROUP 95611 LDL Cholesterol 121 mg/dL 05/19/2016 U nknown FREE T4 24049 T4 Free 1.19 ng/dL 05/19/2016 Unknown COMPREHENSIVE METABOLIC 41586 AST 19 U/L 2014 Unknown COMPREHENSIVE METABOLIC 10075 ALT 10 IU/L 2014 Unknown COMPREHENSIVE METABOLIC 58133 BUN 20 MG/DL 2014 Unknown COMPREHENSIVE METABOLIC 92275 ALBUMIN 4.4 GM/DL 2014 Unknown COMPREHENSIVE METABOLIC 79037 CHLORIDE 104 MMOL/L 04/05 Unknown COMPREHENSIVE METABOLIC 12083 BILI TOT 2.2 MG/DL 2014 Unknown COMPREHENSIVE METABOLIC 52043 ALK PHOS 55 U/L 2014 Unknown COMPREHENSIVE METABOLIC 09152 SODIUM 138 MMOL/L 04/05 Unknown COMPREHENSIVE METABOLIC 23558 CREATININE 1.04 MG/DL 03/18 Unknown COMPREHENSIVE METABOLIC 15769 CALCIUM 9.3 MG/DL 2014 Unknown COMPREHENSIVE METABOLIC 21828 POTASSIUM 4.5 MMOL/L 04/05 Unknown COMPREHENSIVE METABOLIC 89154 PROT TOT 6.7 GM/DL 2014 Unknown COMPREHENSIVE METABOLIC 75490 Glucose 77 MG/DL 2014 Unknown COMPREHENSIVE METABOLIC 67132 BICARB 25 MMOL/L 2014 Unknown COMPREHENSIVE METABOLIC 85111 ANION GAP 9 MEQ/L 2014 Unknown GFR CALC 4621587 GFR AA >60 ML/MIN 04/05/2015 Unknown GFR CALC 0341804 GFR NON-AA >60 ML/MIN 04/05/2015 Unknown LIPID GROUP 51623 HDL TEST 60 MG/DL 04/05/2015 Unknown LIPID GROUP 95897 TRIG 70 MG/DL 04/05/2015 Unknown LIPID GROUP 25595 TEST LDL 137 MG/DL 04/05/2015 Unknown LIPID GROUP 09196 CHOL 211 MG/DL 04/05/2015 Unknown LIPID GROUP 03754 RCHOL/HDL 3.52 RATIO 04/05/2015 Unknow n LIPID GROUP 67759 NON-HDL CH 151 MG/DL 04/05/2015 Unknow n COMPLETE BLOOD COUNT [id number] WBC 5.3 10e9/L 04/05/20 15 Unknown COMPLETE BLOOD COUNT 4368852 RBC 4.42 10e12/L 2014 Unknown COMPLETE BLOOD COUNT 6396990 HGB 13.4 g/dL 5 Unknown COMPLETE BLOOD COUNT 4901637 HCT DET 39.6 % 5 Unknown COMPLETE BLOOD COUNT 1335688 MCV 89.6 fL 5 Unknown COMPLETE BLOOD COUNT 1594124 MCH 30.3 pg 5 Unknown COMPLETE BLOOD COUNT 9770157 MCHC 33.8 g/dL 5 Unknown COMPLETE BLOOD COUNT 8616619 PLT 201 10e9/L 04/05/20 15 Unknown COMPLETE BLOOD COUNT 0246021 MPV 10.3 fL 5 Unknown COMPLETE BLOOD COUNT 5700490 LUPE % 56.4 % 5 Unknown COMPLETE BLOOD COUNT 8322542 LY % 24.8 % 5 Unknown COMPLETE BLOOD COUNT 8140978 MON % 12.8 % 5 Unknown COMPLETE BLOOD COUNT 5411881 EOS % 5.4 % 5 Unknown COMPLETE BLOOD COUNT 9677806 BASO % 0.6 % 5 Unknown COMPLETE BLOOD COUNT 5829890 RDW 13.2 % 5 Unknown COMPLETE BLOOD COUNT 4602346 ABS LUPE 2.99 10e9/L 015 Unknown COMPLETE BLOOD COUNT 3422642 ABS LYMPH 1.31 10e9/L 015 Unknown COMPLETE BLOOD COUNT 0855324 ABS MONO 0.68 10e9/L 015 Unknown COMPLETE BLOOD COUNT 1293259 ABS EOS 0.29 10e9/L 015 Unknown COMPLETE BLOOD COUNT 3500829 ABS BASO 0.03 10e9/L 015 Unknown COMPLETE BLOOD COUNT 6419602 RDW-SD 42.3 fL 5 Unknown LIPID GROUP 45176 HDL TEST 51 MG/DL 07/19/2012 Unknown LIPID GROUP 43936 TRIG 129 MG/DL 07/19/2012 Unknown LIPID GROUP 01433 TEST LDL 98 MG/DL 07/19/2012 Unknown LIPID GROUP 02683 CHOL 175 MG/DL 07/19/2012 Unknown LIPID GROUP 33250 RCHOL/HDL 3.43 RATIO 07/19/2012 Unknow n COMPREHENSIVE METABOLIC 21613 AST 18 U/L 2011 Unknown COMPREHENSIVE METABOLIC 21240 ALT 12 IU/L 2011 Unknown COMPREHENSIVE METABOLIC 74859 BUN 10 MG/DL 2011 Unknown COMPREHENSIVE METABOLIC 95457 ALBUMIN 4.1 GM/DL 2011 Unknown COMPREHENSIVE METABOLIC 50314 CHLORIDE 103 MMOL/L 07/19 Unknown COMPREHENSIVE METABOLIC 81426 BILI TOT 0.9 MG/DL 2011 Unknown COMPREHENSIVE METABOLIC 72498 ALK PHOS 62 U/L 2011 Unknown COMPREHENSIVE METABOLIC 62295 SODIUM 138 MMOL/L 07/19 Unknown COMPREHENSIVE METABOLIC 94353 CREATININE 1.08 MG/DL 10/2011 Unknown COMPREHENSIVE METABOLIC 46587 CALCIUM 9.1 MG/DL 2011 Unknown COMPREHENSIVE METABOLIC 34379 POTASSIUM 4.2 MMOL/L 07/19 Unknown COMPREHENSIVE METABOLIC 27908 PROT TOT 6.7 GM/DL 2011 Unknown COMPREHENSIVE METABOLIC 01491 Glucose 101 MG/DL 2011 Unknown COMPREHENSIVE METABOLIC 24490 BICARB 27 MMOL/L 2011 Unknown COMPREHENSIVE METABOLIC 81798 ANION GAP 8 MEQ/L 2011 Unknown GFR CALC [id number] GFR AA >60 ML/MIN 07/19/2012 Unknown GFR CALC [id number] GFR NON-AA >60 ML/MIN 07/19/2012 Unknown Procedures Procedure Codes Date ROUTINE VENIPUNCTURE CPT-4: 16047 09/30/2019 COMPREHEN METABOLIC PANEL CPT-4: 45676 09/30/2019 COMPLETE CBC W/AUTO DIFF WBC CPT-4: 64174 09/30/2019 ASSAY OF PSA TOTAL CPT-4: 18684 09/30/2019 ASSAY THYROID STIM HORMONE CPT-4: 19690 09/30/2019 LIPID PANEL CPT-4: 38164 09/30/2019 ROUTINE VENIPUNCTURE CPT-4: 07372 09/24/2019 COMPLETE CBC W/AUTO DIFF WBC CPT-4: 45605 09/24/2019 COMPREHEN METABOLIC PANEL CPT-4: 11509 09/24/2019 LIPID PANEL CPT-4: 37559 09/24/2019 ASSAY THYROID STIM HORMONE CPT-4: 80369 09/24/2019 THER/PROPH/DIAG INJ SC/IM CPT-4: 50073 01/13/2019 TRIAMCINOLONE ACET INJ NOS CPT-4: J3301 01/13/2019 DEXAMETHASONE SODIUM PHOS CPT-4: J1100 01/13/2019 ROUTINE VENIPUNCTURE CPT-4: 46775 09/04/2018 COMPREHEN METABOLIC PANEL CPT-4: 83263 09/04/2018 COMPLETE CBC W/AUTO DIFF WBC CPT-4: 88581 09/04/2018 LIPID PANEL CPT-4: 92416 09/04/2018 ASSAY OF PSA TOTAL CPT-4: 24160 09/04/2018 ASSAY THYROID STIM HORMONE CPT-4: 74941 09/04/2018 URINALYSIS NONAUTO W/O SCOPE CPT-4: 78117 05/15/2018 ROUTINE VENIPUNCTURE CPT-4: 24979 11/16/2017 A FRT/VG P CPT-4: 1804085 11/16/2017 A FOOD C P CPT-4: 7677683 11/16/2017 A NUTS PNL CPT-4: 3334291 11/16/2017 THER/PROPH/DIAG INJ SC/IM CPT-4: 35301 11/06/2017 TRIAMCINOLONE ACET INJ NOS CPT-4: J3301 11/06/2017 DEXAMETHASONE SODIUM PHOS CPT-4: J1100 11/06/2017 ROUTINE VENIPUNCTURE CPT-4: 46808 09/03/2017 ASSAY OF FREE THYROXINE CPT-4: 73333 09/03/2017 ASSAY THYROID STIM HORMONE CPT-4: 51161 09/03/2017 ASSAY TRIIODOTHYRONINE (T3) CPT-4: 80059 09/03/2017 ROUTINE VENIPUNCTURE CPT-4: 60495 07/31/2017 COMPREHEN METABOLIC PANEL CPT-4: 16628 07/31/2017 COMPLETE CBC W/AUTO DIFF WBC CPT-4: 06675 07/31/2017 LIPID PANEL CPT-4: 04982 07/31/2017 FLU VACC PRSV FREE INC ANTIG 65 AND OLDER CPT-4: 79956 07/04/2017 ADMIN INFLUENZA VIRUS VAC CPT-4: G0008 07/04/2017 ROUTINE VENIPUNCTURE CPT-4: 45231 02/26/2017 ASSAY THYROID STIM HORMONE CPT-4: 83344 02/26/2017 COMPREHEN METABOLIC PANEL CPT-4: 59428 02/26/2017 COMPLETE CBC W/AUTO DIFF WBC CPT-4: 14198 02/26/2017 LIPID PANEL CPT-4: 88228 02/26/2017 ASSAY OF PSA TOTAL CPT-4: 63160 02/26/2017 FLUZONE, 5ML (Medicare) CPT-4: Q2038 06/28/2016 ADMIN INFLUENZA VIRUS VAC CPT-4: G0008 06/28/2016 ROUTINE VENIPUNCTURE CPT-4: 70881 05/19/2016 ASSAY OF FREE THYROXINE CPT-4: 52292 05/19/2016 ASSAY THYROID STIM HORMONE CPT-4: 53079 05/19/2016 COMPREHEN METABOLIC PANEL CPT-4: 32060 05/19/2016 COMPLETE CBC W/AUTO DIFF WBC CPT-4: 91647 05/19/2016 LIPID PANEL CPT-4: 79292 05/19/2016 VITAMIN B-12 CPT-4: 81814 05/19/2016 PPPS, initial visit CPT-4: G0438 05/10/2016 ROUTINE VENIPUNCTURE CPT-4: 39266 04/05/2015 ASSAY THYROID STIM HORMONE CPT-4: 93193 04/05/2015 COMPREHEN METABOLIC PANEL CPT-4: 13240 04/05/2015 COMPLETE CBC W/AUTO DIFF WBC CPT-4: 02268 04/05/2015 LIPID PANEL CPT-4: 96436 04/05/2015 ASSAY OF PSA TOTAL CPT-4: 12822 04/05/2015 ROUTINE VENIPUNCTURE CPT-4: 83063 07/19/2012 COMPREHEN METABOLIC PANEL CPT-4: 18895 07/19/2012 LIPID PANEL CPT-4: 95014 07/19/2012 ELECTROCARDIOGRAM COMPLETE CPT-4: 20024 03/22/2012 Vital Signs Date Vital 09/24/2019 Blood Pressure 1: 125/72 Code: 8480-6 BMI: 19.8 Code: 95202-1 Heart Rate 1: 88 bpm Height: 5'11" [...] 1: 102/60 Code: 8480-6 BMI: 19.1 Code: 80708-8 Heart Rate 1: 82 bpm Height: 5'11" Respiratory Rate: 22 bpm SpO2: 97% Tempera ture: 36.4 (C) / 97.6 (F) Weight: 137 lbs 04/25/2018 Blood Pressure 1: 118/64 Code: 8480-6 BMI: 19.2 Code: 23406-2 Heart Rate 1: 98 bpm Height: 5'11" Respiratory Rate: 20 bpm SpO2: 99% Tempera ture: 36.4 (C) / 97.6 (F) Weight: 138 lbs 11/06/2017 Blood Pressure 1: 108/68 Code: 8480-6 BMI: 18.5 Code: 55088-2 Heart Rate 1: 68 bpm Height: 5'11" Respiratory Rate: 20 bpm SpO2: 96% Tempera ture: 36.8 (C) / 98.2 (F) Weight: 133 lbs 09/03/2017 Blood Pressure 1: 122/64 Code: 8480-6 BMI: 17.6 Code: 50342-9 Heart Rate 1: 90 bpm Height: 5'11" Respiratory Rate: 20 bpm SpO2: 98% Tempera ture: 36.4 (C) / 97.6 (F) Weight: 126 lbs 08/21/2017 Blood Pressure 1: 114/80 Code: 8480-6 BMI: 17.9 Code: 89838-8 Heart Rate 1: 80 bpm Height: 5'11" Respiratory Rate: 20 bpm SpO2: 95% Tempera ture: 36.6 (C) / 97.9 (F) Weight: 128 lbs 02/13/2017 Blood Pressure 1: 122/60 Code: 8480-6 BMI: 18.5 Code: 30841-0 Heart Rate 1: 76 bpm Height: 5'11" Respiratory Rate: 20 bpm SpO2: 96% Tempera ture: 36.9 (C) / 98.4 (F) Weight: 133 lbs 11/23/2016 Blood Pressure 1: 126/70 Code: 8480-6 BMI: 18.5 Code: 26930-1 Heart Rate 1: 100 bpm Height: 5'11" Respiratory Rate: 20 bpm SpO2: 96% Tempera ture: 37.1 (C) / 98.8 (F) Weight: 133 lbs 05/23/2016 Blood Pressure 1: 128/82 Code: 8480-6 BMI: 18.5 Code: 78117-1 Heart Rate 1: 88 bpm Height: 5'11" Respiratory Rate: 20 bpm Temperature: 36 .7 (C) / 98.0 (F) Weight: 133 lbs 05/10/2016 Blood Pressure 1: 146/70 Code: 8480-6 BMI: 18.5 Code: 95153-1 Heart Rate 1: 84 bpm Height: 5'11" Respiratory Rate: 20 bpm Temperature: 36 .7 (C) / 98.1 (F) Weight: 133 lbs 04/01/2015 Blood Pressure 1: 102/60 Code: 8480-6 BMI: 18.5 Code: 48361-9 Heart Rate 1: 64 bpm Height: 5'11" Respiratory Rate: 20 bpm Temperature: 36 .8 (C) / 98.2 (F) Weight: 133 lbs 01/13/2014 Blood Pressure 1: 124/78 Code: 8480-6 BMI: 19.8 Code: 32515-1 Heart Rate 1: 76 bpm Height: 5'11" Respiratory Rate: 20 bpm Temperature: 36 .8 (C) / 98.2 (F) Weight: 142 lbs 04/03/2012 Blood Pressure 1: 106/76 Code: 8480-6 BMI: 20.9 Code: 23014-7 Heart Rate 1: 84 bpm Height: 5'11" Respiratory Rate: 20 bpm Temperature: 36 .7 (C) / 98.0 (F) Weight: 150 lbs 12/20/2011 Blood Pressure 1: 116/60 Code: 8480-6 BMI: 20.1 Code: 37589-7 Heart Rate 1: 80 bpm Height: 5'11" Respiratory Rate: 20 bpm Temperature: 36 .4 (C) / 97.6 (F) Weight: 144 lbs 10/24/2011 Blood Pressure 1: 132/74 Code: 8480-6 BMI: 19.7 Code: 05813-7 Heart Rate 1: 96 bpm Height: 5'11" [...] 04/05/2015 follow up 04/01/2015 follow up 01/13/2014 [facility] from Justin Palacio'justin in November 2012 lab draw 07/19/2012 follow up 04/03/2012 S/P stent placement in LAD, changed effient to plavix hip pain 12/20/2011 dyskinesia or tremor 10/24/2011 follow up 03/13/2011 started on effient, zocor, and atenolol follow up 02/20/2011 [facility]/Dr Christian rojas follow up 02/23/2010 [facility], appt with Dr Bajwa 03/22/10 insomnia 01/12/2010 problems falling and staying asleep, takes nortriptyline Encounters Encounter Performer Location Codes Date ([id number]) NURSE/OUTPATIENT VISIT EST Diagnosis: Essential (primary) hypertension[ICD10: I10] Diagnosis: Mixed hyperlipidemia[ICD10: E78.2] Diagnosis: Encounter for screening for malignant neoplasm of prostate[ICD10: Z12.5] Vonnie MATHEWS [employer] CPT-4: 45744 09/30/2019 ([id number]) OFFICE/OUTPATIENT VISIT EST Diagnosis: Encounter for therapeutic drug level monitoring[ICD10: Z51.81] Diagnosis: Essential tremor[ICD10: G25.0] Verna Ramirez VONNIE MATHEWS i[employer] CPT-4: 02294 09/24/2019 ([id number]) OFFICE/OUTPATIENT VISIT EST Diagnosis: Noninfective gastroenteritis and colitis, unspecified[ICD10: K52.9] Diagnosis: Hemorrhage of anus and rectum[ICD10: K62.5] Vonnie MATHEWS [employer] [facility] CPT-4: 97765 05/26/2019 ([id number]) OFFICE/OUTPATIENT VISIT EST Diagnosis: Other intervertebral disc degeneration, 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] Diagnosis: Other forms of dyspnea[ICD10: R06.09] Vonnie MATHEWS [employer] [facility] CPT-4: 47642 03/17/2019 OFFICE/OUTPATIENT VISIT EST Diagnosis: Other intervertebral disc degeneration, 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] Diagnosis: Other symptoms and signs involving the musculoskeletal system[ICD10: R29.898] Vonnie MATHEWS [employer] [facility] CPT-4: 42483 02/18/2019 ([id number]) OFFICE/OUTPATIENT VISIT EST Diagnosis: Other allergic rhinitis[ICD10: J30.89] Akilah Lopez DOLLY HUBERT MATHEWS [employer] [facility] CPT-4: 23420 01/13/2019 ([id number]) NURSE/OUTPATIENT VISIT EST Diagnosis: Mixed hyperlipidemia[ICD10: E78.2] Diagnosis: Essential (primary) hypertension[ICD10: I10] Diagnosis: Encounter for screening for malignant neoplasm of prostate[ICD10: Z12.5] Diagnosis: Encounter for general adult medical examination with abnormal findings[ICD10: Z00.01] Diagnosis: Benign prostatic hyperplasia without lower urinary tract symptoms[ICD10: N40.0] Vonnie MATHEWS [employer] [facility] CPT-4: 59027 09/04/2018 ([id number]) OFFICE/OUTPATIENT VISIT EST Diagnosis: Otorrhea, left ear[ICD10: H92.12] Diagnosis: Impacted cerumen, right ear[ICD10: H61.21] Verna MATHEWS [employer] [facility] CPT-4: 50575 09/03/2018 ([id number]) OFFICE/OUTPATIENT VISIT EST Diagnosis: Other intervertebral disc degeneration, 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] Diagnosis: Primary insomnia[ICD10: F51.01] Diagnosis: Essential tremor[ICD10: G25.0] Vonnie MATHEWS [employer] [facility] CPT-4: 30255 08/26/2018 ([id number]) OFFICE/OUTPATIENT VISIT EST Diagnosis: Pelvic and perineal pain[ICD10: R10.2] Verna MATHEWS [employer] [facility] CPT-4: 33167 05/15/2018 ([id number]) OFFICE/OUTPATIENT VISIT EST Diagnosis: Encounter for therapeutic drug level monitoring[ICD10: Z51.81] Diagnosis: Acute sinusitis, unspecified[ICD10: J01.90] Diagnosis: Other intervertebral disc degeneration, 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] Diagnosis: Essential tremor[ICD10: G25.0] Diagnosis: Raynaud's syndrome without gangrene[ICD10: I73.00] Verna MATHEWS [employer] [facility] CPT-4: 19785 04/25/2018 ([id number]) OFFICE/OUTPATIENT VISIT EST Diagnosis: Idiopathic urticaria[ICD10: L50.1] Diagnosis: Other urticaria[ICD10: L50.8] Vonnie COLMENARES Denia BOWMAN [employer] [facility] CPT-4: 02094 11/16/2017 ([id number]) OFFICE/OUTPATIENT VISIT EST Diagnosis: Idiopathic urticaria[ICD10: L50.1] Diagnosis: Other urticaria[ICD10: L50.8] Diagnosis: Other forms of dyspnea[ICD10: R06.09] Vonnie RODGERS [employer] CPT-4: 83130 11/06/2017 ([id number]) OFFICE/OUTPATIENT VISIT EST Diagnosis: Dyspnea, unspecified[ICD10: R06.00] Diagnosis: Abnormal weight loss[ICD10: R63.4] Vonnie LUCIA [employer] CPT-4: 98692 09/03/2017 ([id number]) OFFICE/OUTPATIENT VISIT EST 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] Diagnosis: Mixed hyperlipidemia[ICD10: E78.2] Diagnosis: Essential tremor[ICD10: G25.0] Diagnosis: Essential (primary) hypertension[ICD10: I10] Diagnosis: Abnormal weight loss[ICD10: R63.4] Vonnie Reid MATHEWS DO [facility] CPT-4: 26123 08/21/2017 ([id number]) OFFICE/OUTPATIENT VISIT EST Diagnosis: Mixed hyperlipidemia[ICD10: E78.2] Diagnosis: Essential (primary) hypertension[ICD10: I10] 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] Diagnosis: Anemia, unspecified[ICD10: D64.9] Vonnie MATHEWS DO [facility] CPT-4: 91176 07/31/2017 ([id number]) OFFICE/OUTPATIENT VISIT EST Diagnosis: FLU VACCINE[ICD10: Z23] Vonnie GERMAN [facility] CPT-4: 05964 07/04/2017 ([id number]) OFFICE/OUTPATIENT VISIT EST Diagnosis: Mixed hyperlipidemia[ICD10: E78.2] Diagnosis: Essential tremor[ICD10: G25.0] 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] Diagnosis: Essential (primary) hypertension[ICD10: I10] Diagnosis: Supraventricular tachycardia[ICD10: I47.1] Diagnosis: Other fatigue[ICD10: R53.83] Diagnosis: Encounter for screening for malignant neoplasm of prostate[ICD10: Z12.5] Vonnie MATHEWS DO [facility] CPT-4: 93633 02/26/2017 ([id number]) OFFICE/OUTPATIENT VISIT EST Diagnosis: Essential tremor[ICD10: G25.0] Vonnie MATHEWS DO [facility] CPT-4: 30608 02/13/2017 ([id number]) OFFICE/OUTPATIENT VISIT EST Diagnosis: Essential tremor[ICD10: G25.0] Diagnosis: Other intervertebral disc degeneration, 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] Vonnie MATHEWS DO [facility] CPT-4: 93478 11/23/2016 ([id number]) OFFICE/OUTPATIENT VISIT EST Diagnosis: FLU VACCINE[ICD10: Z23] Vonnie BOWMAN [facility] CPT-4: 76514 06/28/2016 OFFICE/OUTPATIENT VISIT EST Diagnosis: Open bite of right hand, initial encounter[ICD10: S61.451A] Vonnie MATHEWS [employer] CPT-4: 72436 05/23/2016 ([id number]) OFFICE/OUTPATIENT VISIT EST Diagnosis: Encounter for general adult medical examination with abnormal findings[ICD10: Z00.01] Diagnosis: Mixed hyperlipidemia[ICD10: E78.2] Diagnosis: Essential tremor[ICD10: G25.0] 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] Vonnie ASCENCIOLINE Denia MATHEWS [employer] CPT-4: 78685 05/19/2016 ([id number]) OFFICE/OUTPATIENT VISIT EST Diagnosis: HYPERLIPIDEMIA NEC/NOS[ICD9: 272.4] Diagnosis: CAD[ICD9: 414.00] Diagnosis: TACHYCARDIA[ICD9: 785.0] Diagnosis: HYPERTENSION[ICD9: 401.9] Diagnosis: Routine medical exam[ICD9: V70.0] Vonnie Romulojuan miguel Galarza Denia MATHEWS [employer] CPT-4: 60700 04/05/2015 ([id number]) OFFICE/OUTPATIENT VISIT EST Diagnosis: HYPERTENSION[ICD9: 401.9] Diagnosis: HYPERLIPIDEMIA NEC/NOS[ICD9: 272.4] Diagnosis: CAD[ICD9: 414.00] Diagnosis: LUMB/LUMBOSAC DISC DEGEN[ICD9: 722.52] Vonnie Romulojuan miguel GASPAR Denia MATHEWS [employer] CPT-4: 05265 04/01/2015 ([id number]) OFFICE/OUTPATIENT VISIT EST Diagnosis: CHEST PAIN NOS[ICD9: 786.50] Diagnosis: PAIN IN THORACIC SPINE[ICD9: 724.1] Diagnosis: HYPERTENSION[ICD9: 401.9] Diagnosis: GERD[ICD9: 530.81] Vonnie Romulojuan miguel LAIVONNIE Denia MATHEWS [employer] CPT-4: 21556 01/13/2014 ([id number]) OFFICE/OUTPATIENT VISIT EST Diagnosis: CAD[ICD9: 414.00] Diagnosis: HYPERLIPIDEMIA NEC/NOS[ICD9: 272.4] Vonnie ANNA Denia MATHEWS [employer] CPT-4: 85296 07/19/2012 ([id number]) OFFICE/OUTPATIENT VISIT EST Diagnosis: CAD[ICD9: 414.00] Diagnosis: INSOMNIA NOS[ICD9: 780.52] Vonnie JON YULISA DO [facility] CPT-4: 11581 04/03/2012 ([id number]) OFFICE/OUTPATIENT VISIT EST Diagnosis: CHEST PAIN NOS[ICD9: 786.50] Diagnosis: CAD[ICD9: 414.00] Vonnie SCHULTZNDER DO [facility] CPT-4: 46855 03/22/2012 ([id number]) OFFICE/OUTPATIENT VISIT EST Diagnosis: PROSTATITIS[ICD9: 601.9] Diagnosis: TREMOR NEC[ICD9: 333.1] Vonnie SCHULTZND ER DO [facility] CPT-4: 35705 12/20/2011 OFFICE/OUTPATIENT VISIT EST Diagnosis: TREMOR NEC[ICD9: 333.1] Diagnosis: TACHYCARDIA[ICD9: 785.0] Diagnosis: HYPERTENSION[ICD9: 401.9] Vonnie SCHULTZ NDER DO [facility] CPT-4: 22914 10/24/2011 OFFICE/OUTPATIENT VISIT EST Vonnie SCHULTZ NDER DO [facility] CPT- 4: 45370 03/13/2011 ([id number]) OFFICE/OUTPATIENT VISIT EST Vonnie GASPAR SKim SCHULTZNDER DO [facility] CPT-4: 76099 02/20/2011 ([id number]) OFFICE/OUTPATIENT VISIT, EST Vonnie NELSON SKim ORENDER DO [facility] CPT-4: 29014 02/23/2010 ([id number]) OFFICE/OUTPATIENT VISIT, EST Vonnie NELSON S. ORENDER DO [facility] CPT-4: 57308 01/12/2010 Plan of Care Planned Activity Notes Codes Status Date Appointment: Vonnie Mathews WPtel: [phone] [facility] [place] LAB 09/30/2019 Appointment: Verna Ramirez [address] [place], [place] [id number] RESCHEDULED 09/25/2019 Visit Diagnosis Plan: Essential tremor Discussion: sta ble on clonazepam. educated patient about purchasing a large, heavy pen that will allow him to improve his writing. instructed him that pens can be purchased on [employer]. ICD-9 : 333.1 ICD-10 : G25.0 09/24/2019 Visit Diagnosis Plan: Encounter for therapeutic drug l evel monitoring Discussion: UDS and contract completed today. ICD-9 : V58.83 ICD-10 : Z51.81 09/24/2019 Appointment: Verna Ramirez [address] [place], [place] [id number] MEDICATION REVIEW 09/24/2019 Visit Diagnosis Plan: Noninfective gastroenteritis and colitis, unspecified Discussion: Flagyl Lotus diet Update colonoscopy ICD-9 : 558.9 ICD-10 : K52.9 05/26/2019 Visit Diagnosis Plan: Hemorrhage of anus and rectum Di scussion: Update colonoscopy ICD-9 : 569.3 ICD-10 : K62.5 05/26/2019 Appointment: Vonnie [facility]ws [facility]el[phone] [facility] [facility] request faxed 05/23; LM with medical records 05/26/19 Hospital Follow Up 05/26/2019 Care Plan: Referral Order SNOMED-CT : 30 [id number] Pending 05/26/2019 Visit Diagnosis Plan: Other intervertebral disc degene ration, lumbar region Discussion: Increase lyrica to 150mg po q HS Continue stretches from PT [facility] Fwup after that appointment ICD-9 : 722.52 ICD-10 : M51.36 03/17/2019 Appointment: Vonnie Mathews [facility]Ptel[phone] [facility] [facility] FOLLOW UP 03/17/2019 Visit Diagnosis Plan: [...] : R29.898 02/18/2019 Appointment: Vonnie Mathews WPtel: [address] [place], [place] [phone] FOLLOW UP 02/18/2019 Appointment: Vonnie Mathews WPtel: [address] [place], [place] [phone] US CANCELED 02/18/2019 Visit Diagnosis Plan: Other [...] : J30.89 01/13/2019 Appointment: Akilah Lopez [address] [facility] Due for annual wellness ACUTE ILLNESS 01/14/20 Appointment: Vonnie Mathews WPtel: [address] [place], [place] [phone] [place] LAB 09/04/2018 Visit Diagnosis Plan: Impacted [...] : H92.12 09/03/2018 Appointment: Verna Ramirez [address] [facility] ACUTE ILLNESS 09/03/2018 Visit Diagnosis Plan: Primary insomnia Discussion: Sta ble using ambien prn--no side effects per patient or ICD-9 : 780.52 ICD-10 : F51.01 08/26/2018 Visit Diagnosis Plan: Essential tremor Discussion: Inc rease primidone to 100mg q AM and 50mg q HS for rest of month then may increase to 100mg po BID if needed Will return later this week fasting for lab ICD-9 : 333.1 ICD-10 : G25.0 08/26/2018 Visit Diagnosis Plan: Other intervertebral disc degene ration, lumbar region Discussion: Stable using oxycodone prn Follow Up: 3 months ICD-9 : 722.52 ICD-10 : M51.36 08/26/2018 Appointment: Vonnie Mathews WPtel: [phone] [id number] [place] FOLLOW UP 08/26/2018 Visit Diagnosis Plan: [...] ICD-10 : R10.2 05/15/2018 Appointment: Verna Ramirez [address] [place], [place] [id number] ACUTE ILLNESS 05/15/2018 Patient Education: Patient Medication Summary Completed 05/15/2018 Care Plan: US EXAM PELVIC COMPLETE scrotal LOINC : 45823-3 Pending 05/15/2018 Visit Diagnosis Plan: Other intervertebral disc degene ration, lumbar region Discussion: stable on oxycodone. continue with current dose. ICD-9 : 722.52 ICD-10 : M51.36 04/25/2018 Visit Diagnosis Plan: Essential tremor Discussion: [...] ICD-9 : 461.9 ICD-10 : J01.90 04/25/2018 Visit Diagnosis Plan: Raynaud's syndrome without gangr marito Discussion: discussed with patient the disease and causes. handout with education given to patient. informed him to wear gloves during the cold months and to keep fingers moisturized to prevent cracking and sores which may take time to heal. if worsening symptoms or new concerns, call clinic. ICD-9 : 443.0 ICD-10 : I73.00 04/25/2018 Appointment: Verna Ramirez [address] [place] [address] MEDICATION REVIEW 04/25/2018 Patient Education: Patient Medication Summary Completed 04/25/2018 Appointment: Vonnie Mathews WPtel: [address] [place] [phone] 11/16/2017 Patient Education: Patient Medication Summary Completed [...] L50.1 11/06/2017 Appointment: Vonnie Mathews WPtel: [address] [place] [phone] FOLLOW UP 11/06/2017 Patient Education: Patient Medication [...] : R63.4 09/03/2017 Appointment: Vonnie Mathews WPtel: [address] [place], [place] [phone] US FOLLOW UP 09/03/2017 Patient Education: Patient Medication Summary Completed 09/03/2017 Visit Diagnosis Plan: Mixed hyperlipidemia Discussion: Lab discussed ICD-9 : 272.4 ICD-10 : E78.2 08/21/2017 Visit Diagnosis Plan: Essential tremor Discussion: Sta ble on Primidone ICD-9 : 333.1 ICD-10 : G25.0 08/21/2017 Visit Diagnosis Plan: Atherosclerotic he art disease of [place] coronary artery without angina pectoris Discussion: Sees Cardiology in 2 days To ER if CP returns before ICD-9 : 414.00 ICD-10 : I25.10 08/21/2017 Visit Diagnosis Plan: Abnormal weight loss Discussion: Start daily protein shake or smoothie ICD-9 : 783.21 ICD-10 : R63.4 08/21/2017 Visit Diagnosis Plan: Essential (primary) hypertension Discussion: Stable ICD-9 : 401.9 ICD-10 : I10 08/21/2017 Appointment: Vonnie Mathews WPtel: [address] [place], [place] [phone] US FOLLOW UP 08/21/2017 Patient Education: Patient Medication Summary Completed 08/21/2017 Appointment: Vonnie Mathews WPtel: [phone] [place], [place] [phone] US LAB 07/31/2017 Patient Education: Patient Medication Summary Completed 07/31/2017 Appointment: Vonnie Mathews WPtel: [phone] [place], [place] [id number] [place] INJECTION 07/04/2017 Patient Education: Patient Medication Summary Completed 07/04/2017 Appointment: Vonnie Mathewstel: [address] [place], [place] [phone] [place] LAB 02/26/2017 Patient Education: Patient Medication Summary Completed 02/26/2017 Visit Diagnosis Plan: Essential tremor Discussion: Con tinue clonazepam at 1mg q AM and primidone 50mg q HS Follow Up: 3 months ICD-9 : 333.1 ICD-10 : G25.0 02/13/2017 Appointment: Vonnie Mathews WPtel: [address] [place] [phone] 02/08 confirmed~sl FOLLOW UP 02/13/2017 Patient Education: Patient Medication Summary Completed 02/13/2017 Appointment: Vonnie Mathews WPtel: [address] [place] [address] US RESCHEDULED 01/23/2017 Visit Diagnosis Plan: Other intervertebral disc degene ration, lumbar region Discussion: DC oxycodone Tramadol 50mg 1-2 po TID prn pain Follow Up: 2 months ICD-9 : 722.52 ICD-10 : M51.36 11/23/2016 Visit Diagnosis Plan: Essential tremor Discussion: Inc rease clonazepam to 1mg po BID Discussed sinemet ICD-9 : 333.1 ICD-10 : G25.0 11/23/2016 Appointment: Vonnie Mathews WPtel: [address] [place] [phone] 11/22 confirmed~sl MEDICATION REVIEW 11/23/2016 Patient Education: Patient Medication Summary Completed 11/23/2016 Patient Education: [facility] - [employer] - Clonazepam - 18-64 - Dynamic Portal ID Completed 11/23/2016 Appointment: Vonnie Mathews WPtel: [address] [place], [place] [phone] [place] INJECTION 06/28/2016 Patient Education: Patient Medication Summary Completed 06/28/2016 Referral: Fernando Day WPtel: #1 [facility] Girish [address] [phone] per Maribeth, the patient is sched uled [...] if worsening 05/23/2016 Appointment: Vonnie Mathews WPtel: [address] [place], [place] [id number] ER Follow UP 05/23/2016 Patient Education: Patient Medication Summary Completed 05/23/2016 Appointment: Vonnie Mathews WPtel: [address] [place], [place] [phone] [place] LAB 05/19/2016 Patient Education: Patient Medication Summary Completed 05/19/2016 Visit Plan: Change coreg to 3.125mg BID Trial of low dose clonazepam 0.5mg BID for tremors Fwup with Dr. Ramsey as scheduled Return for fasting lab--CBC, CMP, TSH, free T4, Lipids, PSA, B12 Proceed with Colonoscopy 05/10/2016 Appointment: Vonnie Mathews WPtel: [address] [place] [phone] 05/09 confirmed~sl Annual Well Visit 05/10/2016 Patient Education: Patient Medication Summary Completed 05/10/2016 Care Plan: Referral Order SNOMED-CT : 30 [id number] Pending 05/10/2016 Appointment: Vonnie Mathews WPtel: [address] [place], [place] [phone] [place] Rescheduled for 05/10/16 at 2PM~lb RESCHEDULED 04/26/2016 Referral: Danilo Ramsey [facility] [id number] [facility] Referral Initiated 04/29/2015 Appointment: Vonnie Mathews WPtel: [address] [place], [place] [phone] [place] LAB 04/05/2015 Patient Education: Patient Medication Summary Completed 04/05/2015 Visit Plan: Return in AM for fasting lab --CMP, lipids, CBC, TSH, PSA Change hydrocodone to oxycodone 7.5/325mg 1-2 po TID Schedule with cardiology Needs colonoscopy once cardiology evaluation complete Will need to restart chol meds after lab Recheck 1mo on pain meds 04/01/2015 Appointment: Vonnie Mathews WPtel: [address] [place], [place] [phone] US 03/31 confirmed -mf PHYSICAL 04/01/2015 Patient Education: Patient Medication Summary Completed 04/01/2015 Appointment: Vonnie Mathews WPtel: [address] [place] [phone] Annual Well Visit 09/23/2014 Visit Plan: Continue protonix Pt has fwu p with Card next month Rec chiropracter or PT for ribs/thoracics being out and could be contributing to chest pain 01/13/2014 Appointment: Vonnie Mathews WPtel: [address] [place] [address] US FOLLOW UP 01/13/2014 Patient Education: Patient Medication Summary Completed 01/13/2014 Appointment: Ariella Mcnally WPtel: [address] [place], [place] [phone] US FOLLOW UP 12/12/2013 Appointment: Malika Cárdenas WPtel: [address] [place] [address] PHYSICAL 12/12/2013 Appointment: Vonnie Mathews WPtel: [address] [place], [place] [id number] ACUTE ILLNESS 02/20/2013 Appointment: Vonnie Mathews WPtel: [address] [place], [place] [phone] LAB 07/19/2012 Patient Education: Patient Medication Summary Completed 07/19/2012 Appointment: Vonnie Mathews WPtel: [address] [place], [place] [phone] US FOLLOW UP 04/03/2012 Patient Education: Patient Medication Summary Completed 04/03/2012 Appointment: Vonnie Mathews WPtel: [phone] ACUTE ILLNESS 03/22/2012 Patient Education: Patient Medication Summary Completed 03/22/2012 Appointment: Vonnie Mathews WPtel: [address] [place] [phone] FOLLOW UP 12/26/2011 Visit Plan: Add Cipro Continue current m eds 12/20/2011 Appointment: Vonnie Mathews WPtel: [address] [place] [phone] ACUTE ILLNESS 12/20/2011 Patient Education: Patient Medication Summary Completed 12/20/2011 Visit Plan: Change neurontin to Cymbalta 30mg for 1wk then 60mg QD Add Propranolol for tremor 10/24/2011 Appointment: Vonnie Mathews WPtel: [address] [place] [phone] ACUTE ILLNESS 10/24/2011 Appointment: Vonnie Mathews WPtel: [address] [place] [phone] ACUTE ILLNESS 10/24/2011 Patient Education: Patient Medication Summary Completed 10/24/2011 Visit Plan: Continue current meds and fw up with Card as scheduled 03/13/2011 Appointment: Vonnie Mathews WPtel: [address] [place] [address] FOLLOW UP 03/13/2011 Patient Education: Patient Medication Summary Completed 03/13/2011 Visit Plan: Will obtain all records and lab from [facility] Discussed will likely need heart cath which pt states that Card did talk to him about in the hospital 02/20/2011 Appointment: Vonnie Mathews WPtel: [address] [place] [address] ACUTE ILLNESS 02/20/2011 Patient Education: Patient Medication Summary Completed 02/20/2011 Visit Plan: Cont Pepcid and Prilosec See Card for cardiac cath. 02/23/2010 Appointment: Vonnie Mathews WPtel: [address] [place] [address] [place] FOLLOW UP 02/23/2010 Patient Education: Patient Medication Summary Completed 02/23/2010 Visit Plan: Increase Pamelor to 75mg qhs Increase Hydrocodone to 10/325mg 1-2 po q6 prn 01/12/2010 Appointment: Vonnie Mathews WPtel: [phone] [id number] ACUTE ILLNESS 01/12/2010 Patient Education: Patient Medication Summary Completed 01/12/2010 Referral: Iván Pardo WPtel: [facility] [address] [place] [address], [id number] Referral Initiated Referral: Fernando Day WPtel: #1 [id number] Referral Completed Referral: Fernando Day WPtel: #1 [id number] Referral Appointment Requested Instructions Comment . Finish [...] Will obtain all records and lab from [facility] Discussed will likely need heart cath which [...]
--- OUTSIDE RECORDS SUMMARY | 2020-02-10 08:16 | XMS REPORT | CCD ---
Author Author Nash Mathews D.O. Organization [facility] Address [address] [place] [address] Phone Care Team Providers Care Lead Machinist Name Role Phone Vonnie Mathews D.O., PP Unavailable CCM Unavailable Summary Purpose Interface Exchange Insurance Providers Payer name Policy type / Coverage type Covered constitution party ID Effective Begin Date Effective End Date [employer] MEDICARE Medicare Part B [id number] 2019 Unknown Family History Family History data not found Social History Social History Element Codes Description Effective Dates Marital status Unknown 10/24/[address]: 421328810 Nonsmoker 03/29/2011 Allergies, Adverse Reactions, Alerts Substance [...] R63.4 08/21/2017 Active 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: [...] Start Date Stop Date Status Fill Instructions Tamiflu 75 mg capsule RxNorm: 865722 1 Capsule(s) Oral QD 11/03/2019 11/12/2019 Inactive Tamiflu 75 mg capsule RxNorm: 220580 1 Capsule(s) Oral QD 11/03/2019 11/02/2019 Inactive clonazepam 1 mg tablet RxNorm: 506068 TAKE 1 TABLET BY MOUTH EV SUSAN MORNING 10/16/2019 11/14/2019 Inactive pravastatin 20 mg tablet RxNorm: 097735 1 Tablet(s) Oral QD 020 04/06/2020 Active Singulair 10 mg tablet RxNorm: 908064 TAKE 1 TABLET BY MOUTH EV SUSAN DAY 10/10/2019 07/05/2020 Active Lyrica 75 mg capsule RxNorm: 028992 1 Capsule(s) Oral every nig ht at bedtime 10/09/2019 01/07/2020 Active clonazepam 1 mg tablet RxNorm: 195141 TAKE 1 TABLET BY MOUTH EV SUSAN AM 09/23/2019 10/15/2019 Inactive clonazepam 1 mg tablet RxNorm: 553293 TAKE 1 TABLET BY MOUTH EV SUSAN AM 08/21/2019 09/22/2019 Inactive Singulair 10 mg tablet RxNorm: 200132 TABLET(S) 1 TABLET(S) PO QD 1 10/09/2019 Inactive Flagyl 500 mg tablet RxNorm: 490905 1 Tablet(s) PO TID 05/26/2019 Inactive clonazepam 1 mg tablet RxNorm: 843329 TAKE 1 TABLET BY MOUTH EV SUSAN MORNING 05/23/2019 06/21/2019 Inactive pravastatin 20 mg tablet RxNorm: 671273 1 Tablet(s) PO QD 04/14/2019 10/09/2019 Inactive Needs updated fasting labs Singulair 10 mg tablet RxNorm: 994561 Tablet(s) 1 TABLET(S) PO QD 0 04/14/2019 07/12/2019 Inactive clonazepam 1 mg tablet RxNorm: 053641 1 Tablet(s) PO QAM 02/21/2019 0 05/23/2019 Inactive Bevespi Aerosphere 9 mcg-4.8 mcg HFA aerosol inhaler RxNorm: 9845586 2 Puff(s) INH BID 02/19/2019 No Stop Date Active ProAir HFA 90 mcg/actuation aerosol inhaler RxNorm: 169257 2 Puff(s) INH Q4H as needed 02/19/2019 09/24/2019 Inactive metoprolol tartrate 25 mg tablet RxNorm: 699312 1/2 Tablet(s) PO BI D 02/18/2019 05/18/2019 Inactive pravastatin 20 mg tablet RxNorm: 752804 1 Tablet(s) PO QD Needs updated fasting labs 01/13/2019 04/14/2019 Inactive Needs updated fa sting labs Singulair 10 mg tablet RxNorm: 885567 Tablet(s) 1 TABLET(S) PO QD 0 01/13/2019 04/12/2019 Inactive Plavix 75 mg tablet RxNorm: 107526 Tablet(s) 1 TABLET(S) PO QD 04/201906/20/2019 Inactive [SAVINGS FOR NON-COVERED SHANDA GS -- BIN:552940, PCN: ASPROD1, Group: XXXXX, ID# [id number], Questions: . THIS IS NOT INSURANCE.] Singulair 10 mg tablet RxNorm: 769320 1 TABLET(S) PO QD 10/29/2018 Inactive primidone 50 mg tablet RxNorm: 424200 2 TABLET(S) PO BI D TAKE 2 TABLETS BY MOUTH EVERY NIGHT AT BEDTIME 10/07/2018 01/12/2019 Inactive Patient requests 90 days supply pravastatin 20 mg tablet RxNorm: 272260 1 TABLET(S) PO QD 09/23/2018 01/12/2019 Inactive clonazepam 1 mg tablet RxNorm: 493100 1 Tablet(s) PO QAM 09/19/2018 0 12/17/2018 Inactive primidone 50 mg tablet RxNorm: 652394 TABLET(S) TAKE 2 TABLETS BY MOUTH EVERY NIGHT AT BEDTIME 09/18/2018 01/12/2019 Inactive ciprofloxacin 0.2 % ear drops in a dropperette RxNorm: 63104 6 2 Drop(s) left otic (ear) BID 09/03/2018 09/09/2018 Inactive primidone 50 mg tablet RxNorm: 096719 2 Tablet(s) PO BI D TAKE 2 TABLETS BY MOUTH EVERY NIGHT AT BEDTIME 08/26/2018 10/06/2018 Inactive Ambien 5 mg tablet RxNorm: 020669 TAKE 1 TABLET BY MOUTH EVERY NIGHT AT BEDTIME 08/05/2018 09/03/2018 Inactive Singulair 10 mg tablet RxNorm: 193495 1 TABLET(S) PO QD 07/23/2018 Inactive clonazepam 1 mg tablet RxNorm: 728689 TAKE 1 TABLET BY MOUTH EV SUSAN MORNING 07/23/2018 08/21/2018 Inactive Plavix 75 mg tablet RxNorm: 429364 1 TABLET(S) PO QD 07/04/201812/22 Inactive [SAVINGS FOR NON-COVERED DRUGS -- BIN:00 358, PCN: ASPROD1, Group: XXXXX, ID# [id number], Questions: . THIS IS NOT INSURANCE.] clonazepam 1 mg tablet RxNorm: 718732 TAKE 1 TABLET BY MOUTH EV SUSAN MORNING 06/25/2018 07/23/2018 Inactive clonazepam 1 mg tablet RxNorm: 228737 TAKE 1 TABLET BY MOUTH EV SUSAN MORNING 05/23/2018 06/21/2018 Inactive primidone 50 mg tablet RxNorm: 646348 Tablet(s) TAKE 2 TABLETS BY MOUTH EVERY NIGHT AT BEDTIME 05/16/2018 08/25/2018 Inactive oxycodone-acetaminophen 7.5 mg-325 mg tablet RxNorm: 2933531 1-2 Tablet(s) PO TID as needed 04/25/2018 05/24/2018 Inactive Singulair 10 mg tablet RxNorm: 180064 1 Tablet(s) PO QD 04/25/2018 Inactive Medrol (Jose) 4 mg tablets in a dose pack RxNorm: 776960 Tablet(s) PO take as directed 04/25/2018 09/02/2018 Inactive clonazepam 1 mg tablet RxNorm: 436702 TAKE 1 TABLET BY MOUTH EV SUSAN MORNING 04/24/2018 05/22/2018 Inactive Plavix 75 mg tablet RxNorm: 501590 1 TABLET(S) PO QD 04/04/201807/02 Inactive [SAVINGS FOR NON-COVERED DRUGS -- BIN:00 3585, PCN: ASPROD1, Group: XXXXX, ID# [id number], Questions: . THIS IS NOT INSURANCE.] pravastatin 20 mg tablet RxNorm: 765447 1 Tablet(s) PO QD 03/21/2018 09/16/2018 Inactive ProAir HFA 90 mcg/actuation aerosol inhaler RxNorm: 513177 2 Puff(s) INH Q4H as needed 03/18/2018 03/17/2018 Inactive tamsulosin 0.4 mg capsule RxNorm: 316263 1 CAPSULE(S) PO QD 018 01/12/2019 Inactive clonazepam 1 mg tablet RxNorm: 400529 1 Tablet(s) PO QAM 02/25/2018 0 04/25/2018 Inactive tamsulosin 0.4 mg capsule RxNorm: 715457 1 Capsule(s) PO QD 018 03/13/2018 Inactive tamsulosin 0.4 mg capsule RxNorm: 289987 1 Capsule(s) PO QD 018 02/03/2018 Inactive tamsulosin 0.4 mg capsule RxNorm: 368496 1 Capsule(s) PO QD 018 02/12/2018 Inactive Ambien 5 mg tablet RxNorm: 983752 Tablet(s) TAKE 1 TAB LET BY MOUTH EVERY NIGHT AT BEDTIME 01/24/2018 08/05/2018 Inactive primidone 50 mg tablet RxNorm: 933907 Tablet(s) TAKE 2 TABLETS BY MOUTH EVERY NIGHT AT BEDTIME 01/18/2018 05/16/2018 Inactive cyclobenzaprine 10 mg tablet RxNorm: 759662 1 Tablet(s) PO TID as needed for muscle spasm 01/11/2018 02/09/2018 Inactive [SAVINGS FOR NON -COVERED DRUGS -- BIN:260330, PCN: ASPROD1, Group: XXXXX, ID# [id number], Questions: . THIS IS NOT INSURANCE.] clonazepam 1 mg tablet RxNorm: 930137 1 Tablet(s) PO QAM 12/24/2017 0 02/21/2018 Inactive prednisone 20 mg tablet RxNorm: 779466 1 Tablet(s) PO QD 11/06/2017 0 11/10/2017 Inactive EpiPen 2-Jose 0.3 mg/0.3 mL injection, auto-injector RxNorm: 331140 1 Unit Dose IM as needed 11/06/2017 09/24/2019 Inactive ProAir HFA 90 mcg/actuation aerosol inhaler RxNorm: 938436 2 Puff(s) INH Q4H as needed 10/30/2017 03/17/2018 Inactive primidone 50 mg tablet RxNorm: 947178 TAKE 2 TABLETS BY MOUTH EVERY NIGHT AT BEDTIME 10/15/2017 01/17/2018 Inactive Plavix 75 mg tablet RxNorm: 560272 1 Tablet(s) PO QD 10/01/201703/29 Inactive [SAVINGS FOR NON-COVERED DRUGS -- BIN:00 3585, PCN: ASPROD1, Group: XXXXX, ID# [id number], Questions: . THIS IS NOT INSURANCE.] clonazepam 1 mg tablet RxNorm: 359850 1 Tablet(s) PO QAM 09/19/2017 0 12/16/2017 Inactive primidone 50 mg tablet RxNorm: 168670 2 Tablet(s) PO QHS 08/29/2017 0 01/18/2018 Inactive oxycodone-acetaminophen 7.5 mg-325 mg tablet RxNorm: 0597552 1-2 Tablet(s) PO TID as needed 08/22/2017 09/19/2017 Inactive pravastatin 20 mg tablet RxNorm: 191375 1 Tablet(s) PO QD 08/21/2017 03/21/2018 Inactive carvedilol 3.125 mg tablet RxNorm: 525895 1 Tablet(s) P O BID to replace 6.25mg dose 08/21/2017 09/02/2017 Inactive primidone 50 mg tablet RxNorm: 196643 TAKE 2 TABLETS BY MOUTH EVERY NIGHT AT BEDTIME 06/18/2017 08/28/2017 Inactive clonazepam 1 mg tablet RxNorm: 660945 1 Tablet(s) PO QAM 06/04/2017 1 11/02/2016 Inactive Plavix 75 mg tablet RxNorm: 023072 1 Tablet(s) PO QD 04/10/201710/01 Inactive [SAVINGS FOR NON-COVERED DRUGS -- BIN:00 2845, PCN: ASPROD1, Group: XXXXX, ID# [id number], Questions: . THIS IS NOT INSURANCE.] pravastatin 20 mg tablet RxNorm: 390057 1 Tablet(s) PO QD 02/26/2017 08/24/2017 Inactive carvedilol 3.125 mg tablet RxNorm: 214015 1 Tablet(s) P O BID to replace 6.25mg dose 02/26/2017 08/21/2017 Inactive Ultram 50 mg tablet RxNorm: 860734 TAKE 1 TO 2 TABLETS BY MOUTH THREE TIMES DAILY NEEDED FOR PAIN 02/26/2017 03/07/2017 Inactive pravastatin 20 mg tablet RxNorm: 253166 1 Tablet(s) PO QD 02/26/2017 08/21/2017 Inactive carvedilol 3.125 mg tablet RxNorm: 685325 1 Tablet(s) P O BID to replace 6.25mg dose 02/26/2017 08/20/2017 Inactive clonazepam 0.5 mg tablet RxNorm: 566444 1 Tablet(s) PO QAM 02/14/20 17 02/13/2017 Inactive primidone 50 mg tablet RxNorm: 666873 1 Tablet(s) PO QHS 02/13/2017 0 05/01/2017 Inactive clonazepam 1 mg tablet RxNorm: 810050 1 Tablet(s) PO QAM 02/13/2017 0 05/13/2017 Inactive primidone 50 mg tablet RxNorm: 556864 1/2 Tablet(s) PO QD for 7 days then increase to 1 tablet at bedtime 01/09/2017 02/12/2017 Inactive pravastatin 20 mg tablet RxNorm: 853272 Tablet(s) 1 TABLET(S) PO QD 11/29/2016 02/25/2017 Inactive clonazepam 1 mg tablet RxNorm: 244615 1 Tablet(s) PO BID replac es 0.5mg dose 11/23/2016 01/08/2017 Inactive pravastatin 20 mg tablet RxNorm: 272444 1 TABLET(S) PO QD 11/17/2016 11/28/2016 Inactive Ambien 5 mg tablet RxNorm: 286381 TAKE 1 TABLET BY MOUTH EVERY NIGHT AT BEDTIME 11/17/2016 12/14/2016 Inactive clonazepam 0.5 mg tablet RxNorm: 457128 TAKE 1 TABLET BY MOUTH TWICE DAILY 11/17/2016 11/22/2016 Inactive Plavix 75 mg tablet RxNorm: 351012 1 Tablet(s) PO QD 11/06/201604/09 Inactive [SAVINGS FOR NON-COVERED DRUGS -- BIN:00 3585, PCN: ASPROD1, Group: XXXXX, ID# [id number], Questions: . THIS IS NOT INSURANCE.] Plavix 75 mg tablet RxNorm: 965809 1 Tablet(s) PO QD 08/28/201611/05 Inactive [SAVINGS FOR NON-COVERED DRUGS -- BIN:00 3585, PCN: ASPROD1, Group: XXXXX, ID# [id number], Questions: . THIS IS NOT INSURANCE.] Lidoderm 5 % topical patch RxNorm: 4350024 Application T OP 2 patches for 12hrs then off for 12hrs 08/28/2016 08/27/2016 Inactive clonazepam 0.5 mg tablet RxNorm: 741134 1 Tablet(s) PO BID 08/07/20 16 11/22/2016 Inactive pravastatin 20 mg tablet RxNorm: 931195 1 Tablet(s) PO QD 08/07/2016 11/04/2016 Inactive cyclobenzaprine 10 mg tablet RxNorm: 628439 1 Tablet(s) PO TID as needed for muscle spasm 08/07/2016 09/05/2016 Inactive [SAVINGS FOR NON -COVERED DRUGS -- BIN:486418, PCN: ASPROD1, Group: XXXXX, ID# [id number], Questions: . THIS IS NOT INSURANCE.] Plavix 75 mg tablet RxNorm: 224675 1 Tablet(s) PO QD 08/07/201608/27 Inactive [SAVINGS FOR NON-COVERED DRUGS -- BIN: 3585, PCN: ASPROD1, Group: XXXXX, ID# [id number], Questions: . THIS IS NOT INSURANCE.] carvedilol 3.125 mg tablet RxNorm: 766626 1 Tablet(s) P O BID to replace 6.25mg dose 08/07/2016 02/02/2017 Inactive clonazepam 0.5 mg tablet RxNorm: 571890 1 Tablet(s) PO BID 07/04/20 16 08/07/2016 Inactive Plavix 75 mg tablet RxNorm: 334648 1 TABLET(S) PO QD 06/20/201608/06 Inactive [SAVINGS FOR NON-COVERED DRUGS -- BIN: 3585, PCN: ASPROD1, Group: XXXXX, ID# [id number], Questions: . THIS IS NOT INSURANCE.] clonazepam 0.5 mg tablet RxNorm: 907107 1 Tablet(s) PO BID 06/09/20 16 07/03/2016 Inactive pravastatin 20 mg tablet RxNorm: 633736 1 Tablet(s) PO QD 05/23/2016 08/06/2016 Inactive pravastatin 20 mg tablet RxNorm: 683462 1 Tablet(s) PO QD 05/23/2016 05/22/2016 Inactive carvedilol 3.125 mg tablet RxNorm: 166290 1 Tablet(s) P O BID to replace 6.25mg dose 05/10/2016 08/06/2016 Inactive carvedilol 3.125 mg tablet RxNorm: 939754 1 Tablet(s) P O BID to replace 6.25mg dose 05/10/2016 05/09/2016 Inactive clonazepam 0.5 mg tablet RxNorm: 523934 1 Tablet(s) PO BID 05/10/20 16 06/08/2016 Inactive carvedilol 6.25 mg tablet RxNorm: 334765 1 Tablet(s) PO QD 05/10/20 16 05/10/2016 Inactive simvastatin 40 mg tablet RxNorm: 805607 1 TABLET(S) PO QD 04/10/2016 05/09/2016 Inactive Medrol (Jose) 4 mg tablets in a dose pack RxNorm: 045706 Tablet(s) PO As Directed 01/13/2016 05/09/2016 Inactive cyclobenzaprine 10 mg tablet RxNorm: 657896 1 TABLET(S) PO TID NEEDED FOR SPASM 01/11/2016 03/10/2016 Inactive [SAVINGS FOR NON -COVERED DRUGS -- BIN:952706, PCN: ASPROD1, Group: XXXXX, ID# [id number], Questions: . THIS IS NOT INSURANCE.] Plavix 75 mg tablet RxNorm: 127117 1 Tablet(s) PO QD 12/30/201506/19 Inactive [SAVINGS FOR NON-COVERED DRUGS -- BIN:00 3585, PCN: ASPROD1, Group: XXXXX, ID# [id number], Questions: . THIS IS NOT INSURANCE.] Ambien 5 mg tablet RxNorm: 833501 TAKE 1 TABLET BY MOUTH EVERY DAY AT BEDTIME 11/15/2015 11/17/2016 Inactive simvastatin 40 mg tablet RxNorm: 695013 1 Tablet(s) PO QD 10/11/2015 01/12/2019 Inactive simvastatin 40 mg tablet RxNorm: 745915 1 Tablet(s) PO QD 10/08/2015 10/10/2015 Inactive Ambien 5 mg tablet RxNorm: 255051 TAKE 1 TABLET BY MOUTH EVERY NIGHT AT BEDTIME 07/27/2015 11/15/2015 Inactive Plavix 75 mg tablet RxNorm: 684009 1 Tablet(s) PO QD 06/28/201512/29 Inactive [SAVINGS FOR NON-COVERED DRUGS -- BIN:00 3585, PCN: ASPROD1, Group: XXXXX, ID# [id number], Questions: . THIS IS NOT INSURANCE.] Coreg 6.25 mg tablet RxNorm: 389554 1 TABLET(S) PO BID 04/19/2015 Inactive [SAVINGS FOR NON-COVERED DRUGS -- BIN:00 3585, PCN: ASPROD1, Group: XXXXX, ID# [id number], Questions: . THIS IS NOT INSURANCE.] simvastatin 40 mg tablet RxNorm: 364272 1 Tablet(s) PO QD 04/05/2015 04/04/2015 Inactive simvastatin 40 mg tablet RxNorm: 016396 1 Tablet(s) PO QD 04/05/2015 10/11/2015 Inactive Plavix 75 mg tablet RxNorm: 176393 1 TABLET(S) PO QD 03/22/201504/20 Inactive [SAVINGS FOR NON-COVERED DRUGS -- BIN:00 3585, PCN: ASPROD1, Group: XXXXX, ID# [id number], Questions: . THIS IS NOT INSURANCE.] Plavix 75 mg tablet RxNorm: 375426 1 Tablet(s) PO QD 03/22/201506/28 Inactive [SAVINGS FOR NON-COVERED DRUGS -- BIN:00 3585, PCN: ASPROD1, Group: XXXXX, ID# [id number], Questions: . THIS IS NOT INSURANCE.] Ambien 5 mg tablet RxNorm: 188006 1 Tablet(s) PO QHS 12/17/201407/28 Inactive [SAVINGS FOR NON-COVERED DRUGS -- BIN:00 3585, PCN: ASPROD1, Group: XXXXX, ID# [id number], Questions: . THIS IS NOT INSURANCE.] Coreg 6.25 mg tablet RxNorm: 216240 1 Tablet(s) PO BID 12/17/2014 Inactive [SAVINGS FOR NON-COVERED DRUGS -- BIN:00 3585, PCN: ASPROD1, Group: XXXXX, ID# [id number], Questions: . THIS IS NOT INSURANCE.] Plavix 75 mg tablet RxNorm: 188571 1 Tablet(s) PO QD 12/17/201403/16 Inactive [SAVINGS FOR NON-COVERED DRUGS -- BIN:00 3585, PCN: ASPROD1, Group: XXXXX, ID# XXXXXXX, Questions: . THIS IS NOT INSURANCE.] cyclobenzaprine 10 mg tablet RxNorm: 237728 1 Tablet(s) PO TID as needed for spasm 12/17/2014 03/16/2015 Inactive [SAVINGS FOR NON -COVERED DRUGS -- BIN:276650, PCN: ASPROD1, Group: XXXXX, ID# XXXXXXX, Questions: . THIS IS NOT INSURANCE.] Coreg 6.25 mg tablet RxNorm: 784362 1 Tablet(s) PO BID 10/21/201409/2014 Inactive [SAVINGS FOR NON-COVERED DRUGS -- BIN:00 3585, PCN: ASPROD1, Group: XXXXX, ID# [id number], Questions: . THIS IS NOT INSURANCE.] Plavix 75 mg tablet RxNorm: 682468 1 Tablet(s) PO QD 10/21/201412/16 Inactive [SAVINGS FOR NON-COVERED DRUGS -- BIN:00 3585, PCN: ASPROD1, Group: XXXXX, ID# XXXXXXX, Questions: . THIS IS NOT INSURANCE.] Plavix 75 mg tablet RxNorm: 411072 1 Tablet(s) PO QD Ne eds routine check up--last seen March 2012 09/21/2014 10/20/2014 Inactive [SAVINGS FOR UNINSURED PATIENTS -- BIN:519399, PCN: ASPROD1, Group: AME08, ID# [id number], Process claim through [employer], for questions: . THIS IS NOT INSURANCE.] Ambien 5 mg tablet RxNorm: 439513 1 Tablet(s) PO QHS 09/21/201412/16 Inactive [SAVINGS FOR UNINSURED PATIENTS -- BIN:0 69966, PCN: ASPROD1, Group: AME08, ID# [id number], Process claim through [employer], for questions: . THIS IS NOT INSURANCE.] Coreg 6.25 mg tablet RxNorm: 292400 1 Tablet(s) PO BID 09/21/201411/2014 Inactive [SAVINGS FOR UNINSURED PATIENTS -- BIN:0 33688, PCN: ASPROD1, Group: AME08, ID# [id number], Process claim through [employer], for questions: . THIS IS NOT INSURANCE.] Plavix 75 mg tablet RxNorm: 714490 1 Tablet(s) PO QD Ne eds routine check up--last seen March 2012 08/04/2014 09/02/2014 Inactive [SAVINGS FOR UNINSURED PATIENTS -- BIN:002410, PCN: ASPROD1, Group: AME08, ID# [id number], Process claim through [employer], for questions: . THIS IS NOT INSURANCE.] Plavix 75 mg tablet RxNorm: 300689 1 Tablet(s) PO QD Ne eds routine check up--last seen March 2012 08/03/2014 08/03/2014 Inactive Protonix 40 mg tablet,delayed release RxNorm: 083166 1 Tablet(s ) PO QD 06/08/2014 02/17/2019 Inactive [SAVINGS FOR UNINSUR ED PATIENTS -- BIN:577199, PCN: ASPROD1, Group: AME08, ID# [id number], Process claim through [employer], for questions: . THIS IS NOT INSURANCE.] hydrocodone 10 mg-acetaminophen 325 mg tablet RxNorm: 665948 1 Tablet(s) PO BID as needed for pain 02/18/2014 03/31/2015 Inactive Coreg 6.25 mg tablet RxNorm: 572023 1 Tablet(s) PO BID 02/02/2014 Inactive Protonix 40 mg granules delayed-release packet RxNorm: 986031 1 Tablet(s) PO QD 01/13/2014 06/08/2014 Inactive Plavix 75 mg tablet RxNorm: 860715 1 Tablet(s) PO QD Ne eds routine check up--last seen March 2012 01/13/2014 08/02/2014 Inactive Plavix 75 mg tablet RxNorm: 169766 1 Tablet(s) PO QD Ne eds routine check up--last seen March 2012 12/09/2013 01/07/2014 Inactive Coreg 6.25 mg tablet RxNorm: 281182 1 Tablet(s) PO BID 12/09/2013 Inactive Cymbalta 60 mg capsule,delayed release RxNorm: 021874 1 Capsule (s) PO QD 10/31/2013 01/12/2014 Inactive Coreg 6.25 mg tablet RxNorm: 933249 1 Tablet(s) PO BID 10/31/2013 Inactive Plavix 75 mg tablet RxNorm: 894313 1 Tablet(s) PO QD Ne eds routine check up--last seen March 2012 10/31/2013 11/29/2013 Inactive Coreg 6.25 mg tablet RxNorm: 004180 1 Tablet(s) PO BID 10/31/2013 Inactive atorvastatin 40 mg tablet RxNorm: 568305 1 Tablet(s) PO QD 10/31/19 14 03/31/2015 Inactive Plavix 75 mg tablet RxNorm: 298144 1 Tablet(s) PO QD Ne eds routine check up--last seen March 2012 09/23/2013 10/30/2013 Inactive cyclobenzaprine 10 mg tablet RxNorm: 391542 1 Tablet(s) PO TID as needed for spasm 09/23/2013 No Stop Date Active cyclobenzaprine 10 mg tablet RxNorm: 330872 1 Tablet(s) PO TID as needed for spasm 07/04/2013 09/22/2013 Inactive atorvastatin 40 mg tablet RxNorm: 699073 1 Tablet(s) PO QD 06/23/20 13 10/30/2013 Inactive atorvastatin 40 mg tablet RxNorm: 405607 1 Tablet(s) PO QD 04/22/20 13 06/22/2013 Inactive Nucynta 50 mg tablet RxNorm: 007616 1-2 Tablet(s) PO Q6H as nee ded for pain 01/01/2013 01/12/2014 Inactive Ambien 5 mg tablet RxNorm: 351945 1 Tablet(s) PO QHS 10/16/201201/13 Inactive Plavix 75 mg tablet RxNorm: 342934 1 Tablet(s) PO QD 09/19/201209/13 Inactive Protonix 40 mg tablet,delayed release RxNorm: 617572 1 Tablet(s ) PO QD 09/19/2012 09/18/2012 Inactive simvastatin 40 mg tablet RxNorm: 395791 1 Tablet(s) PO QD 09/19/2012 02/23/2013 Inactive Protonix 40 mg tablet,delayed release RxNorm: 235264 1 Tablet(s ) PO QD 09/19/2012 09/13/2013 Inactive Ultram 50 mg tablet RxNorm: 553020 1-2 Tablet(s) PO QID as need ed for pain 09/19/2012 02/26/2017 Inactive propranolol 80 mg tablet RxNorm: 112275 1 Tablet(s) PO QHS 09/19/19 13 09/18/2012 Inactive Cymbalta 60 mg capsule,delayed release RxNorm: 404192 1 Capsule (s) PO QD 09/19/2012 09/18/2012 Inactive Cymbalta 60 mg capsule,delayed release RxNorm: 424222 1 Capsule (s) PO QD 09/19/2012 03/17/2013 Inactive propranolol 80 mg tablet RxNorm: 607632 1 Tablet(s) PO QHS 09/19/19 13 02/23/2013 Inactive hydrocodone-acetaminophen 10 mg-325 mg tablet RxNorm: 693741 2 1-2 Tablet(s) PO QID 07/25/2012 02/23/2013 Inactive Ambien 10 mg tablet RxNorm: 595347 1 Tablet(s) PO QHS as needed for sleep 07/10/2012 01/27/2013 Inactive propranolol 80 mg tablet RxNorm: 068171 1 Tablet(s) PO QHS 05/13/20 12 09/18/2012 Inactive hydrocodone-acetaminophen 10 mg-325 mg tablet RxNorm: 027128 2 1-2 Tablet(s) PO QID 05/02/2012 No Stop Date Active Restoril 15 mg Cap RxNorm: 807222 1-2 Capsule(s) PO QHS 05/02/2012 Inactive propranolol 80 mg tablet RxNorm: 049734 1 Tablet(s) PO QHS 05/02/2005/12/2012 Inactive Chantix Starting Month Box 0.5 mg (11)-1 mg (42) Tabs in a Dose Pack RxNorm: 080241 Tablet(s) PO As Directed 04/01/2012 01/27/2013 Inactive simvastatin 40 mg tablet RxNorm: 853976 1 Tablet(s) PO QD 03/28/2012 09/18/2012 Inactive simvastatin 40 mg Tab RxNorm: 013044 1 Tablet(s) PO QD 03/22/201207/2012 Inactive Effient 10 mg Tab RxNorm: 211658 1 Tablet(s) PO QD 03/22/2012 012 Inactive Prilosec 40 mg Capsule, delayed release RxNorm: 761645 1 Capsul e(s) PO QD 03/22/2012 09/18/2012 Inactive Prilosec 40 mg Capsule, delayed release RxNorm: 750594 1 Capsul e(s) PO QD 03/19/2012 03/21/2012 Inactive Cymbalta 60 mg capsule,delayed release RxNorm: 989344 1 Capsule (s) PO QD 03/04/2012 08/30/2012 Inactive hydrocodone-acetaminophen 10 mg-325 mg Tab RxNorm: 8666127 1-2 T ablet(s) PO QID 01/23/2012 No Stop Date Active Cymbalta 60 mg Capsule, delayed release RxNorm: 461638 1 Capsul e(s) PO QD 01/23/2012 03/03/2012 Inactive Cipro 500 mg Tab RxNorm: 989153 1 Tablet(s) PO BID 12/20/2011 012 Inactive Cymbalta 60 mg Capsule, delayed release RxNorm: 455594 1 Capsul e(s) PO QD 12/13/2011 01/22/2012 Inactive nortriptyline 75 mg Cap RxNorm: 287678 1 Capsule(s) PO QHS 11/29/1904/02/2012 Inactive Cymbalta 60 mg Cap RxNorm: 737745 1 Capsule(s) PO QD 10/24/201112/11 Inactive propranolol 80 mg Tab RxNorm: 890641 1 Tablet(s) PO QHS 10/24/2011 Inactive hydrocodone-acetaminophen 10 mg-325 mg Tab RxNorm: 1622047 1-2 T ablet(s) PO QID 09/29/2011 No Stop Date Active hydrocodone-acetaminophen 10 mg-325 mg Tab RxNorm: 4452037 1-2 T ablet(s) PO QID 07/25/2011 No Stop Date Active hydrocodone-acetaminophen 10 mg-325 mg Tab RxNorm: 0758252 1-2 T ablet(s) PO QID 02/14/2011 No Stop Date Active Prilosec 40 mg Cap RxNorm: 089105 1 Capsule(s) PO 01/03/2011 01/13/20 19 Inactive nortriptyline 75 mg Cap RxNorm: 422415 1 Capsule(s) PO QHS 01/04/20 11 07/01/2011 Inactive Neurontin 600 mg Tab RxNorm: 125288 1 Tablet(s) PO QHS 12/08/201011/2011 Inactive hydrocodone-acetaminophen 5 mg-500 mg Tab RxNorm: 822387 2 Tablet(s) PO Q4-6H prn 10/20/2010 01/08/2011 Inactive Diltzac ER 240 mg Cap RxNorm: 838072 1 Capsule(s) PO QD 07/14/2010 Inactive Nortriptyline 75 mg Cap RxNorm: 813533 1 Capsule(s) PO QHS 05/09/2001/12/2019 Inactive Neurontin 600 mg Tab RxNorm: 678151 1 Tablet(s) PO QD 03/17/201012/17 Inactive Nortriptyline 75 mg Cap RxNorm: 747887 1 Capsule(s) PO 01/12/2010 Inactive Nortriptyline 50 mg Cap RxNorm: 375366 1 Capsule(s) PO QHS 01/13/20 10 01/11/2010 Inactive Diltzac ER 240 mg Cap RxNorm: 674276 1 Capsule(s) PO QD 12/06/2009 Inactive aspirin 81 mg Tab RxNorm: 368932 1 Tablet(s) PO QD No Start Date Active Vitamin D3 2,000 unit tablet RxNorm: 589851 1 Tablet(s) PO QD No Star t Date Active [id number]-[id number] complex no.233 oral RxNorm: oral No Start Date Active primidone 50 mg tablet RxNorm: 371938 2 Tablet(s) PO BID No Start Date Active Prilosec 40 mg Capsule, delayed release RxNorm: 591192 1 Capsul e(s) PO QD No Start Date 03/18/2012 Inactive Prilosec 20 mg Cap RxNorm: 925146 1 Capsule(s) PO QHS No Start Date 0 01/02/2011 Inactive primidone 50 mg tablet RxNorm: 485187 1/2 Tablet(s) PO QHS for 1week then go full tab if needed No Start Date 05/01/2017 Inactive ProAir HFA 90 mcg/actuation aerosol inhaler RxNorm: 286154 2 Puff(s) INH Q4H as needed No Start Date 10/29/2017 Inactive clonazepam 0.5 mg tablet RxNorm: 847894 1/2 Tablet(s) PO BID No Sta rt Date 02/12/2017 Inactive Pepcid AC 10 mg Tab RxNorm: 126142 1 Tablet(s) PO QAM No Start Date 0 02/19/2011 Inactive Coreg Oral RxNorm: Oral No Start Date 01/12/2014 Inactive primidone 50 mg tablet RxNorm: 535994 1/2 Tablet(s) PO QD for 7 days then increase to 1 tablet at bedtime No Start Date 01/08/2017 Inactive Medrol (Jose) 4 mg tablets in a dose pack RxNorm: 555810 Tablet(s) PO As Directed No Start Date 01/12/2016 Inactive Plavix 75 mg tablet RxNorm: 774263 1 Tablet(s) PO QD No Start Date Inactive cyclobenzaprine 10 mg tablet RxNorm: 395738 1 Tablet(s) PO TID as needed for spasm No Start Date 07/03/2013 Inactive Bevespi Aerosphere 9 mcg-4.8 mcg HFA aerosol inhaler RxNorm: 0276452 2 Puff(s) INH BID No Start Date 02/18/2019 Inactive tramadol 50 mg tablet RxNorm: 860339 1-2 Tablet(s) PO TID as ne eded for pain No Start Date 01/12/2019 Inactive clonazepam 1 mg tablet RxNorm: 278310 1 Tablet(s) PO QAM No Start D ate 09/18/2018 Inactive hydrocodone-acetaminophen 5 mg-500 mg Tab RxNorm: 866540 2 Tablet(s) PO Q4-6H prn No Start Date 10/19/2010 Inactive lisinopril 20 mg Tab RxNorm: 320206 1/2 Tablet(s) PO QD No Start Da te 03/12/2011 Inactive Lyrica 75 mg capsule RxNorm: 109787 1 Capsule(s) PO QHS No Start Da te 10/08/2019 Inactive Protonix 40 mg tablet,delayed release RxNorm: 738392 1 Tablet(s ) PO QD No Start Date 06/07/2014 Inactive Lipitor Oral RxNorm: Oral No Start Date 01/12/2014 Inactive primidone 50 mg tablet RxNorm: 178868 2 Tablet(s) PO QAM and 1 tablet at HS No Start Date 02/17/2019 Inactive hydrocodone-acetaminophen 10 mg-325 mg Tab RxNorm: 4379311 1-2 T ablet(s) PO QID No Start Date 02/13/2011 Inactive Ultram 50 mg tablet RxNorm: 958641 1-2 Tablet(s) PO QID as need ed for pain No Start Date 09/18/2012 Inactive Effient 10 mg Tab RxNorm: 335105 1 Tablet(s) PO QD No Start Date 01/2012 Inactive Bevespi Aerosphere 9 mcg-4.8 mcg HFA aerosol inhaler RxNorm: 7472715 2 Puff(s) INH BID No Start Date 10/29/2017 Inactive Neurontin Oral RxNorm: Oral No Start Date 01/12/2010 Inactive primidone 50 mg tablet RxNorm: 111761 1 Tablet(s) PO QD No Start Da te 01/12/2019 Inactive Chantix Starting Month Box 0.5 mg (11)-1 mg (42) Tabs in a Dose Pack RxNorm: 534673 Tablet(s) PO No Start Date 03/31/2012 Inactive atenolol 25 mg Tab RxNorm: 606360 1 Tablet(s) PO QD No Start Date 02/2012 Inactive Neurontin 600 mg Tab RxNorm: 920732 1 Tablet(s) PO QD No Start Date 0 03/16/2010 Inactive Nucynta 50 mg tablet RxNorm: 715693 1-2 Tablet(s) PO Q6H as nee ded for pain No Start Date 12/31/2012 Inactive simvastatin 40 mg Tab RxNorm: 991126 1 Tablet(s) PO QD No Start Date 03/21/2012 Inactive Medication Administered No Medication Administered data Immunizations Vaccine Codes Date Status Influenza CVX: 135 07/04/2017 Complete Results Observation Observation Code Item Item Code Result Date S ervice Location COMPLETE BLOOD COUNT [id number] WBC 4.9 10e9/L 09/30/19 20 Unknown COMPLETE BLOOD COUNT [id number] RBC 4.65 10e12/L 2019 Unknown COMPLETE BLOOD COUNT [id number] HEMOGLOBIN 13.8 g/dL 09/30/19 20 Unknown COMPLETE BLOOD COUNT [id number] HEMATOCRIT 42.3 % 09/30/19 20 Unknown COMPLETE BLOOD COUNT [id number] MCV 91.0 fL 0 Unknown COMPLETE BLOOD COUNT [id number] MCH 29.7 pg 0 Unknown COMPLETE BLOOD COUNT 7979087 MCHC 32.6 g/dL 0 Unknown COMPLETE BLOOD COUNT 6240878 PLATELET COUNT 230 10e9/L Unknown COMPLETE BLOOD COUNT 8272582 Mean Plt Volume 9.9 fL Unknown COMPLETE BLOOD COUNT 8386587 Neut Auto 52.5 % 0 Unknown COMPLETE BLOOD COUNT [id number] Lymph Auto 30.8 % 09/30/19 20 Unknown COMPLETE BLOOD COUNT 5276524 [place] Auto 11.2 % 0 Unknown COMPLETE BLOOD COUNT 5242017 RDW 13.5 % 0 Unknown COMPLETE BLOOD COUNT [id number] Eos Auto 5.1 % 0 Unknown COMPLETE BLOOD COUNT 7048729 Baso Auto 0.4 % 0 Unknown COMPLETE BLOOD COUNT [id number] Neutrophil Abs 2.57 10e9/L Unknown COMPLETE BLOOD COUNT [id number] Lymphocyte Abs 1.51 10e9/L Unknown COMPLETE BLOOD COUNT [id number] Monocyte Abs 0.55 10e9/L 09/17 Unknown COMPLETE BLOOD COUNT 0154954 Eosinophil Abs 0.25 10e9/L Unknown COMPLETE BLOOD COUNT [id number] RDW-SD 43.9 fL 0 Unknown COMPLETE BLOOD COUNT [id number] Basophil Abs 0.02 10e9/L 09/17 Unknown GFR CALC 9239343 GFR Non Afr Amr >60 mL/min 09/30/2019 Un known GFR CALC [id number] GFR Afr Amr >60 mL/min 09/30/2019 Unknow n THYROID STIMULATING HORMONE 05179 TSH 1.129 uIU/mL 09/30/2019 Unknown PSA EQUIMOLAR BARBIE 52832 PSA Total 0.77 ng/mL 0 Unknown [facility] 97488 Cholesterol 192 mg/dL 09/30/2019 Unkno wn [facility] 06197 Triglyceride 86 mg/dL 09/30/2019 Unkn own L[facility] 72904 HDL CHOLESTEROL 64 mg/dL 09/30/2019 U nknown L[facility] 27810 Chol/HDL Ratio 3.00 ratio 09/30/2019 U nknown [facility] 36250 NON-HDL Chol 128 mg/dL 09/30/2019 Unkn own [facility] 52642 LDL Cholesterol 111 mg/dL 09/30/2019 U nknown COMPREHENSIVE METABOLIC 94014 AST 17 U/L 2019 Unknown COMPREHENSIVE METABOLIC 82531 ALT 10 U/L 2019 Unknown COMPREHENSIVE METABOLIC 47055 BUN 13 mg/dL 2019 Unknown COMPREHENSIVE METABOLIC 91833 ALBUMIN 4.3 g/dL 2019 Unknown COMPREHENSIVE METABOLIC 78451 CHLORIDE 102 mmol/L 09/30 Unknown COMPREHENSIVE METABOLIC 87882 Bili Total 0.6 mg/dL 09/30 Unknown COMPREHENSIVE METABOLIC 03303 ALK PHOS 91 U/L 2019 Unknown COMPREHENSIVE METABOLIC 96938 SODIUM 138 mmol/L 09/30 Unknown COMPREHENSIVE METABOLIC 94478 CREATININE 1.09 mg/dL 09/17 Unknown COMPREHENSIVE METABOLIC 47402 CALCIUM 9.0 mg/dL 2019 Unknown COMPREHENSIVE METABOLIC 38440 POTASSIUM 4.5 mmol/L 09/30 Unknown COMPREHENSIVE METABOLIC 44593 Total Protein 6.8 g/dL Unknown COMPREHENSIVE METABOLIC 20857 Glucose 91 mg/dL 2019 Unknown COMPREHENSIVE METABOLIC 38894 Bicarbonate 28 mmol/L 09/17 Unknown COMPREHENSIVE METABOLIC 86825 AGAP 8 mmol/L 2019 Unknown COMPLETE BLOOD COUNT [id number] WBC 4.9 10e9/L 09/04/20 18 Unknown COMPLETE BLOOD COUNT [id number] RBC 4.42 10e12/L 2017 Unknown COMPLETE BLOOD COUNT 9834995 HEMOGLOBIN 13.4 g/dL 09/04/20 18 Unknown COMPLETE BLOOD COUNT 5453437 HEMATOCRIT 40.5 % 09/04/20 18 Unknown COMPLETE BLOOD COUNT 4496215 MCV 91.6 fL 8 Unknown COMPLETE BLOOD COUNT 8387519 MCH 30.3 pg 8 Unknown COMPLETE BLOOD COUNT 6484191 MCHC 33.1 g/dL 8 Unknown COMPLETE BLOOD COUNT 1098726 PLATELET COUNT 224 10e9/L Unknown COMPLETE BLOOD COUNT 7402772 Mean Plt Volume 9.9 fL Unknown COMPLETE BLOOD COUNT 0199529 Neut Auto 60.8 % 8 Unknown COMPLETE BLOOD COUNT 4531319 Lymph Auto 26.8 % 09/04/20 18 Unknown COMPLETE BLOOD COUNT 9760203 [place] Auto 10.4 % 8 Unknown COMPLETE BLOOD COUNT 6286911 RDW 12.8 % 8 Unknown COMPLETE BLOOD COUNT 4113607 Eos Auto 1.6 % 8 Unknown COMPLETE BLOOD COUNT 3251330 Baso Auto 0.4 % 8 Unknown COMPLETE BLOOD COUNT 1090342 Neutrophil Abs 2.98 10e9/L Unknown COMPLETE BLOOD COUNT 0848528 Lymphocyte Abs 1.31 10e9/L Unknown COMPLETE BLOOD COUNT 4278625 Monocyte Abs 0.51 10e9/L 08/17 Unknown COMPLETE BLOOD COUNT 1212606 Eosinophil Abs 0.08 10e9/L Unknown COMPLETE BLOOD COUNT 5574125 RDW-SD 41.6 fL 8 Unknown COMPLETE BLOOD COUNT [id number] Basophil Abs 0.02 10e9/L 08/17 Unknown COMPREHENSIVE METABOLIC 67821 AST 16 U/L 2017 Unknown COMPREHENSIVE METABOLIC 39964 ALT 8 U/L 2017 Unknown COMPREHENSIVE METABOLIC 13202 BUN 12 mg/dL 2017 Unknown COMPREHENSIVE METABOLIC 80049 ALBUMIN 4.4 g/dL 2017 Unknown COMPREHENSIVE METABOLIC 41298 CHLORIDE 107 mmol/L 09/04 Unknown COMPREHENSIVE METABOLIC 77187 Bili Total 1.0 mg/dL 09/04 Unknown COMPREHENSIVE METABOLIC 22287 ALK PHOS 58 U/L 2017 Unknown COMPREHENSIVE METABOLIC 19381 SODIUM 142 mmol/L 09/04 Unknown COMPREHENSIVE METABOLIC 81138 CREATININE 0.97 mg/dL 08/17 Unknown COMPREHENSIVE METABOLIC 07948 CALCIUM 9.2 mg/dL 2017 Unknown COMPREHENSIVE METABOLIC 65964 POTASSIUM 4.6 mmol/L 09/04 Unknown COMPREHENSIVE METABOLIC 95566 Total Protein 6.5 g/dL Unknown COMPREHENSIVE METABOLIC 64366 Glucose 96 mg/dL 2017 Unknown COMPREHENSIVE METABOLIC 84713 Bicarbonate 29 mmol/L 08/17 Unknown COMPREHENSIVE METABOLIC 17915 AGAP 6 mmol/L 2017 Unknown LIP[facility] GROUP 97114 Cholesterol 182 mg/dL 09/04/2018 Unkno wn LIP[facility] GROUP 55511 Triglyceride 84 mg/dL 09/04/2018 Unkn own L[facility] GROUP 90097 HDL CHOLESTEROL 76 mg/dL 09/04/2018 U nknown L[facility] GROUP 15258 Chol/HDL Ratio 2.39 ratio 09/04/2018 U nknown LIPID GROUP 70515 NON-HDL Chol 106 mg/dL 09/04/2018 Unkn own LIP[facility] GROUP 29116 LDL Cholesterol 89 mg/dL 09/04/2018 U nknown GFR CALC 1158746 GFR Non Afr Amr >60 mL/min 09/04/2018 Un known GFR CALC 8352369 GFR Afr Amr >60 mL/min 09/04/2018 Unknow n THYROID STIMULATING HORMONE 50185 TSH 0.713 uIU/mL 09/04/2018 Unknown PSA EQUIMOLAR BARBIE 70137 PSA Total 0.66 ng/mL 8 Unknown A FOOD C P 3885172 [place] Cl Class 0 11/17/2017 Unknown A FOOD C P [id number] [place] Ct <0.35 kU/L 11/17/2017 Unknow n A FOOD C P [id number] [place] Cl Class 0 11/17/2017 Unkn own A FOOD C P [id number] [place] Ct <0.35 kU/L 11/17/2017 Unk nown A FOOD C P [id number] Egg White Cl Class 0 11/17/2017 Unkno wn A FOOD C P 3068549 Egg White Ct <0.35 kU/L 11/17/2017 Unkn own A FOOD C P 2853276 Egg Yolk Cl Class 0 11/17/2017 Unknow n A FOOD C P 6368438 Egg Yolk Ct <0.35 kU/L 11/17/2017 Unkno wn A FOOD C P 6128895 Cow Milk Cl Class 0 11/17/2017 Unknow n A FOOD C P 8096076 Cow Milk Ct <0.35 kU/L 11/17/2017 Unkno wn A FOOD C P 0640431 Peanut Cl Class 0 11/17/2017 Unknown A FOOD C P 2916508 Peanut Ct <0.35 kU/L 11/17/2017 Unknown A FOOD C P 7058092 Shrimp Cl Class 0 11/17/2017 Unknown A FOOD C P [id number] [place] Ct <0.35 kU/L 11/17/2017 Unknown A FOOD C P 6976467 [place] Cl Class 0 11/17/2017 Unknown A FOOD C P 9635938 [place] Ct <0.35 kU/L 11/17/2017 Unknow n A FOOD C P 3296486 [place] Cl Class 0 11/17/2017 Unknown A FOOD C P 1913191 [place] Ct <0.35 kU/L 11/17/2017 Unknown A FOOD C P 6055740 Potato Cl Class 0 11/17/2017 Unknown A FOOD C P [id number] Potato Ct <0.35 kU/L 11/17/2017 Unknown A FOOD C P [id number] Beef Cl Class 2 11/17/2017 Unknown A FOOD C P 1951884 Beef Ct 0.88 kU/L 11/17/2017 Unknown A FOOD C P 3892486 [place] Cl Class 0 11/17/2017 Unknown A FOOD C P [id number] [place] <0.35 kU/L 11/17/2017 Unknown A FOOD C P 6051116 P[place] Cl Class 0 11/17/2017 Unknown A FOOD C P 0987943 [place] Ct <0.35 kU/L 11/17/2017 Unknown A FOOD C P [id number] [place] Cl Class 0 11/17/2017 Unknown A FOOD C P [id number] [place] Ct <0.35 kU/L 11/17/2017 Unknown A FOOD C P [id number] [place] Cl Class 0 11/17/2017 Unkn own A FOOD C P [id number] [place] [facility] <0.35 kU/L 11/17/2017 Unk nown A FOOD C P 1018400 [place] Cl Class 0 11/17/2017 Unknown A FOOD C P [id number] [place] Ct <0.35 kU/L 11/17/2017 Unknown A FOOD C P 7578197 [place] Cl Class 0 11/17/2017 Unknown A FOOD C P 6204321 [place] Ct <0.35 kU/L 11/17/2017 Unknown A FOOD C P 6555119 [place] CL Class 0 11/17/2017 Unknown A FOOD C P 7949173 [place] <0.35 kU/L 11/17/2017 Unknown A FOOD C P 2573122 [place] Cl Class 0 11/17/2017 Unknown A FOOD C P 5875502 [place] Ct <0.35 kU/L 11/17/2017 Unknown A FOOD C P 8509845 Oat Cl Class 0 11/17/2017 Unknown A FOOD C P 0908896 Oat Ct <0.35 kU/L 11/17/2017 Unknown A FOOD C P 7912068 [place] Cl Class 0 11/17/2017 Unknown A FOOD C P 4344005 [place] Ct <0.35 kU/L 11/17/2017 Unknown A FOOD C P [id number] [place] CL Class 0 11/17/2017 Un known A FOOD C P 0898405 [place] Ct <0.35 kU/L 11/17/2017 U nknown A FOOD C P 6741458 [place] Cl Class 0 11/17/2017 Unknown A FOOD C P 9115738 [place] Ct <0.35 kU/L 11/17/2017 Unknown A FOOD C P 2903517 [place] Meat Cl Class 0 11/17/2017 Unkn own A FOOD C P [id number] [place] Ct <0.35 kU/L 11/17/2017 Unk nown A NUTS PNL [id number] Peanut Cl Class 0 11/17/2017 Unknown A NUTS PNL 6508967 Pe[place] Ct <0.35 kU/L 11/17/2017 Unknown A NUTS PNL 4359167 [place] Meat Cl Class 0 11/17/2017 Unk nown A NUTS PNL 2546048 [place] Ct <0.35 kU/L 11/17/2017 Un known A NUTS PNL 3603421 [place] Meat Cl Class 0 11/17/2017 Unkn own A NUTS PNL 6382918 [place] Ct <0.35 kU/L 11/17/2017 Unk nown A NUTS PNL 6270859 [place] Cl Class 0 11/17/2017 Unknown A NUTS PNL 3903506 [place] Ct <0.35 kU/L 11/17/2017 Unknown A NUTS PNL [id number] [place] Cl Class 0 11/17/2017 Unknow n A NUTS PNL 8556177 [place] Ct <0.35 kU/L 11/17/2017 Unkno wn A NUTS PNL 5952627 [place] Cl Class 0 11/17/2017 Unkno wn A NUTS PNL 6870396 [place] Ct <0.35 kU/L 11/17/2017 Unkn own A NUTS PNL 4612486 [place] Cl Class 0 11/17/2017 Unknown A NUTS PNL 8085240 [place] Ct <0.35 kU/L 11/17/2017 Unknown A NUTS PNL 5721976 [place] Cl Class 0 11/17/2017 Unkno wn A NUTS PNL 1236435 [place] Ct <0.35 kU/L 11/17/2017 Unkn own A NUTS PNL 7556607 Allergen Interp See Note 11/17/2017 Un known A FRT/VG P 9385765 [place] Cl Class 0 11/17/2017 Unkn own A FRT/VG P 7246287 [place] Ct <0.35 kU/L 11/17/2017 Unk nown A FRT/VG P 8414668 [place] Cl Class 0 11/17/2017 Unknown A FRT/VG P 9271782 [place] Ct <0.35 kU/L 11/17/2017 Unknown A FRT/VG P 4318883 [place] Cl Class 0 11/17/2017 Unkn own A FRT/VG P [id number] [place] [address] <0.35 kU/L 11/17/2017 Unk nown A FRT/VG P 9275495 [place] Cl Class 0 11/17/2017 Unknown A FRT/VG P 0398008 [place] Ct <0.35 kU/L 11/17/2017 Unknown A FRT/VG P 3979331 [place] Cl Class 0 11/17/2017 Unknown A FRT/VG P 8861413 [place] Ct <0.35 kU/L 11/17/2017 Unknown A FRT/VG P [id number] [place] Cl Class 1 11/17/2017 Unknown A FRT/VG P 6841581 [place] Ct 0.48 kU/L 11/17/2017 Unknown A FRT/VG P 9073540 [place] Fruit Cl Class 0 11/17/2017 Unk nown A FRT/VG P 8728578 [place] Ct <0.35 kU/L 11/17/2017 Un known A FRT/VG P [id number] [place] Fruit Cl Class 0 11/17/2017 Unk nown A FRT/VG P [id number] [place] Ct <0.35 kU/L 11/17/2017 Un known A FRT/VG P 1834009 [place] Cl Class 0 11/17/2017 Unknown A FRT/VG P [id number] [place] Ct <0.35 kU/L 11/17/2017 Unknown A FRT/VG P 1034549 [place] Cl Class 0 11/17/2017 Unknown A FRT/VG P 6288083 [place] Ct <0.35 kU/L 11/17/2017 Unknown A FRT/VG P 6726649 [place] Fruit Cl Class 0 11/17/2017 Unkn own A FRT/VG P 7937326 [place] Ct <0.35 kU/L 11/17/2017 Unk nown A FRT/VG P 8328908 [place]t [place] Cl Class 0 11/17/2017 Unkn own A FRT/VG P 5461891 Swt [place] Ct <0.35 kU/L 11/17/2017 Unk nown THYROID STIMULATING HORMONE 26055 TSH 1.371 uIU/mL 09/03/2017 Unknown FREE T4 33254 T4 Free 1.26 ng/dL 09/03/2017 Unknown ASSAY TRIIODOTHYRONINE (T3) 20173 T3 Total 0.9 ng/mL Unknown COMPLETE BLOOD COUNT [id number] WBC 5.9 10e9/L 07/31/20 17 Unknown COMPLETE BLOOD COUNT [id number] RBC 4.64 10e12/L 2016 Unknown COMPLETE BLOOD COUNT 6560006 HEMOGLOBIN 14.2 g/dL 07/31/20 17 Unknown COMPLETE BLOOD COUNT [id number] HEMATOCRIT 42.1 % 07/31/20 17 Unknown COMPLETE BLOOD COUNT 6896262 MCV 90.7 fL 7 Unknown COMPLETE BLOOD COUNT 1418131 MCH 30.6 pg 7 Unknown COMPLETE BLOOD COUNT 5534561 MCHC 33.7 g/dL 7 Unknown COMPLETE BLOOD COUNT 1545014 PLATELET COUNT 195 10e9/L Unknown COMPLETE BLOOD COUNT 9956466 Mean Plt Volume 10.0 fL Unknown COMPLETE BLOOD COUNT 9317393 Neut Auto 47.5 % 7 Unknown COMPLETE BLOOD COUNT 0365139 Lymph Auto 37.4 % 07/31/20 17 Unknown COMPLETE BLOOD COUNT 8788808 [place] Auto 11.7 % 7 Unknown COMPLETE BLOOD COUNT 3720106 Eos Auto 3.2 % 7 Unknown COMPLETE BLOOD COUNT 0450426 RDW 12.8 % 7 Unknown COMPLETE BLOOD COUNT 5955891 Baso Auto 0.2 % 7 Unknown COMPLETE BLOOD COUNT 4126625 Neutrophil Abs 2.80 10e9/L Unknown COMPLETE BLOOD COUNT 4007065 Lymphocyte Abs 2.21 10e9/L Unknown COMPLETE BLOOD COUNT [id number] Monocyte Abs 0.69 10e9/L 07/18 Unknown COMPLETE BLOOD COUNT 2083064 Eosinophil Abs 0.19 10e9/L Unknown COMPLETE BLOOD COUNT 5718217 RDW-SD 41.6 fL 7 Unknown COMPLETE BLOOD COUNT 5000149 Basophil Abs 0.01 10e9/L 07/18 Unknown LIPID GROUP 51794 Cholesterol 186 mg/dL 07/31/2017 Unkno wn LIPID GROUP 18686 Triglyceride 129 mg/dL 07/31/2017 Unkn own LIPID GROUP 39495 HDL CHOLESTEROL 79 mg/dL 07/31/2017 U nknown LIPID GROUP 82403 Chol/HDL Ratio 2.35 ratio 07/31/2017 U nknown LIPID GROUP 01075 NON-HDL Chol 107 mg/dL 07/31/2017 Unkn own LIPID GROUP 77927 LDL Cholesterol 81 mg/dL 07/31/2017 U nknown GFR CALC 4681658 GFR Non Afr Amr >60 mL/min 07/31/2017 Un known GFR CALC 0661619 GFR Afr Amr >60 mL/min 07/31/2017 Unknow n COMPREHENSIVE METABOLIC 58769 AST 19 U/L 2016 Unknown COMPREHENSIVE METABOLIC 10620 ALT 12 U/L 2016 Unknown COMPREHENSIVE METABOLIC 14067 BUN 15 mg/dL 2016 Unknown COMPREHENSIVE METABOLIC 01946 ALBUMIN 4.4 g/dL 2016 Unknown COMPREHENSIVE METABOLIC 54361 CHLORIDE 102 mmol/L 07/31 Unknown COMPREHENSIVE METABOLIC 55050 Bili Total 0.9 mg/dL 07/31 Unknown COMPREHENSIVE METABOLIC 01061 ALK PHOS 53 U/L 2016 Unknown COMPREHENSIVE METABOLIC 15457 SODIUM 138 mmol/L 07/31 Unknown COMPREHENSIVE METABOLIC 79767 CREATININE 1.06 mg/dL 07/18 Unknown COMPREHENSIVE METABOLIC 23686 CALCIUM 9.3 mg/dL 2016 Unknown COMPREHENSIVE METABOLIC 19096 POTASSIUM 4.0 mmol/L 07/31 Unknown COMPREHENSIVE METABOLIC 88891 Total Protein 6.8 g/dL Unknown COMPREHENSIVE METABOLIC 98021 Glucose 86 mg/dL 2016 Unknown COMPREHENSIVE METABOLIC 03035 Bicarbonate 28 mmol/L 07/18 Unknown COMPREHENSIVE METABOLIC 12804 AGAP 8 mmol/L 2016 Unknown COMPREHENSIVE METABOLIC 61317 AST 18 U/L 2015 Unknown COMPREHENSIVE METABOLIC 08500 ALT 9 U/L 2015 Unknown COMPREHENSIVE METABOLIC 06847 BUN 11 mg/dL 2015 Unknown COMPREHENSIVE METABOLIC 00960 ALBUMIN 4.2 g/dL 2015 Unknown COMPREHENSIVE METABOLIC 26061 CHLORIDE 104 mmol/L 05/19 Unknown COMPREHENSIVE METABOLIC 13978 Bili Total 1.2 mg/dL 05/19 Unknown COMPREHENSIVE METABOLIC 61006 ALK PHOS 54 U/L 2015 Unknown COMPREHENSIVE METABOLIC 37654 SODIUM 140 mmol/L 05/19 Unknown COMPREHENSIVE METABOLIC 99348 CREATININE 1.03 mg/dL 10/2015 Unknown COMPREHENSIVE METABOLIC 31774 CALCIUM 9.3 mg/dL 2015 Unknown COMPREHENSIVE METABOLIC 60869 POTASSIUM 4.9 mmol/L 05/19 Unknown COMPREHENSIVE METABOLIC 60180 Total Protein 6.7 g/dL Unknown COMPREHENSIVE METABOLIC 75662 Glucose 92 mg/dL 2015 Unknown COMPREHENSIVE METABOLIC 03969 Bicarbonate 28 mmol/L 10/2015 Unknown COMPREHENSIVE METABOLIC 72751 AGAP 8 mmol/L 2015 Unknown THYROID STIMULATING HORMONE 29507 TSH 1.545 uIU/mL 05/19/2016 Unknown GFR CALC 6028170 GFR Non Afr Amr >60 mL/min 05/19/2016 Un known GFR CALC 6312393 GFR Afr Amr >60 mL/min 05/19/2016 Unknow n VITAMIN B 12 34294 VITAMIN B12 298 pg/mL 05/19/2016 Unkn own COMPLETE BLOOD COUNT [id number] WBC 5.2 10e9/L 05/19/20 16 Unknown COMPLETE BLOOD COUNT [id number] RBC 4.34 10e12/L 2015 Unknown COMPLETE BLOOD COUNT 8751571 HEMOGLOBIN 12.9 g/dL 05/19/20 16 Unknown COMPLETE BLOOD COUNT 5882464 HEMATOCRIT 38.9 % 05/19/20 16 Unknown COMPLETE BLOOD COUNT 0703871 MCV 89.6 fL 6 Unknown COMPLETE BLOOD COUNT 5993427 MCH 29.7 pg 6 Unknown COMPLETE BLOOD COUNT 3460855 MCHC 33.2 g/dL 6 Unknown COMPLETE BLOOD COUNT 7992435 PLATELET COUNT 200 10e9/L 10/2015 Unknown COMPLETE BLOOD COUNT 5860527 Mean Plt Volume 10.1 fL 10/2015 Unknown COMPLETE BLOOD COUNT 5015266 Neut Auto 45.4 % 6 Unknown COMPLETE BLOOD COUNT 1166851 Lymph Auto 35.6 % 05/19/20 16 Unknown COMPLETE BLOOD COUNT 3405915 [place] Auto 11.9 % 6 Unknown COMPLETE BLOOD COUNT 3019034 RDW 12.7 % 6 Unknown COMPLETE BLOOD COUNT 0792903 Eos Auto 6.7 % 6 Unknown COMPLETE BLOOD COUNT 7992009 Baso Auto 0.4 % 6 Unknown COMPLETE BLOOD COUNT 5012563 Neutrophil Abs 2.36 10e9/L Unknown COMPLETE BLOOD COUNT 2803612 Lymphocyte Abs 1.85 10e9/L Unknown COMPLETE BLOOD COUNT 5105646 Monocyte Abs 0.62 10e9/L 10/2015 Unknown COMPLETE BLOOD COUNT 1336077 Eosinophil Abs 0.35 10e9/L Unknown COMPLETE BLOOD COUNT 4189165 RDW-SD 40.6 fL 6 Unknown COMPLETE BLOOD COUNT [id number] Basophil Abs 0.02 10e9/L 10/2015 Unknown LIPID GROUP 61215 Cholesterol 197 mg/dL 05/19/2016 Unkno wn LIPID GROUP 50328 Triglyceride 92 mg/dL 05/19/2016 Unkn own LIPID GROUP 55496 HDL CHOLESTEROL 58 mg/dL 05/19/2016 U nknown LIPID GROUP 96067 Chol/HDL Ratio 3.40 ratio 05/19/2016 U nknown LIPID GROUP 94641 NON-HDL Chol 139 mg/dL 05/19/2016 Unkn own LIPID GROUP 18366 LDL Cholesterol 121 mg/dL 05/19/2016 U nknown FREE T4 33223 T4 Free 1.19 ng/dL 05/19/2016 Unknown COMPREHENSIVE METABOLIC 57340 AST 19 U/L 2014 Unknown COMPREHENSIVE METABOLIC 78236 ALT 10 IU/L 2014 Unknown COMPREHENSIVE METABOLIC 02182 BUN 20 MG/DL 2014 Unknown COMPREHENSIVE METABOLIC 88394 ALBUMIN 4.4 GM/DL 2014 Unknown COMPREHENSIVE METABOLIC 42287 CHLORIDE 104 MMOL/L 04/05 Unknown COMPREHENSIVE METABOLIC 49928 BILI TOT 2.2 MG/DL 2014 Unknown COMPREHENSIVE METABOLIC 81662 ALK PHOS 55 U/L 2014 Unknown COMPREHENSIVE METABOLIC 57636 SODIUM 138 MMOL/L 04/05 Unknown COMPREHENSIVE METABOLIC 64414 CREATININE 1.04 MG/DL 03/18 Unknown COMPREHENSIVE METABOLIC 08926 CALCIUM 9.3 MG/DL 2014 Unknown COMPREHENSIVE METABOLIC 07697 POTASSIUM 4.5 MMOL/L 04/05 Unknown COMPREHENSIVE METABOLIC 64438 PROT TOT 6.7 GM/DL 2014 Unknown COMPREHENSIVE METABOLIC 25060 Glucose 77 MG/DL 2014 Unknown COMPREHENSIVE METABOLIC 62205 BICARB 25 MMOL/L 2014 Unknown COMPREHENSIVE METABOLIC 83776 ANION GAP 9 MEQ/L 2014 Unknown GFR CALC 8684697 GFR AA >60 ML/MIN 04/05/2015 Unknown GFR CALC 8880133 GFR NON-AA >60 ML/MIN 04/05/2015 Unknown LIPID GROUP 57927 HDL TEST 60 MG/DL 04/05/2015 Unknown LIPID GROUP 37268 TRIG 70 MG/DL 04/05/2015 Unknown LIPID GROUP 10277 TEST LDL 137 MG/DL 04/05/2015 Unknown LIPID GROUP 36052 CHOL 211 MG/DL 04/05/2015 Unknown LIPID GROUP 46509 RCHOL/HDL 3.52 RATIO 04/05/2015 Unknow n LIPID GROUP 94218 NON-HDL CH 151 MG/DL 04/05/2015 Unknow n COMPLETE BLOOD COUNT 2954771 WBC 5.3 10e9/L 04/05/20 15 Unknown COMPLETE BLOOD COUNT 9503315 RBC 4.42 10e12/L 2014 Unknown COMPLETE BLOOD COUNT 7998234 HGB 13.4 g/dL 5 Unknown COMPLETE BLOOD COUNT 5755273 HCT DET 39.6 % 5 Unknown COMPLETE BLOOD COUNT 0407601 MCV 89.6 fL 5 Unknown COMPLETE BLOOD COUNT 9850170 MCH 30.3 pg 5 Unknown COMPLETE BLOOD COUNT 9348489 MCHC 33.8 g/dL 5 Unknown COMPLETE BLOOD COUNT 6572378 PLT 201 10e9/L 04/05/20 15 Unknown COMPLETE BLOOD COUNT 5182191 MPV 10.3 fL 5 Unknown COMPLETE BLOOD COUNT 4424729 LUPE % 56.4 % 5 Unknown COMPLETE BLOOD COUNT 0364664 LY % 24.8 % 5 Unknown COMPLETE BLOOD COUNT 4460092 MON % 12.8 % 5 Unknown COMPLETE BLOOD COUNT 0097600 EOS % 5.4 % 5 Unknown COMPLETE BLOOD COUNT 4864524 BASO % 0.6 % 5 Unknown COMPLETE BLOOD COUNT 6221913 RDW 13.2 % 5 Unknown COMPLETE BLOOD COUNT 0359338 ABS LUPE 2.99 10e9/L 015 Unknown COMPLETE BLOOD COUNT 0989359 ABS LYMPH 1.31 10e9/L 015 Unknown COMPLETE BLOOD COUNT 8661161 ABS MONO 0.68 10e9/L 015 Unknown COMPLETE BLOOD COUNT 0705101 ABS EOS 0.29 10e9/L 015 Unknown COMPLETE BLOOD COUNT 3233629 ABS BASO 0.03 10e9/L 015 Unknown COMPLETE BLOOD COUNT 8320438 RDW-SD 42.3 fL 5 Unknown LIPID GROUP 04506 HDL TEST 51 MG/DL 07/19/2012 Unknown LIPID GROUP 54160 TRIG 129 MG/DL 07/19/2012 Unknown LIPID GROUP 50934 TEST LDL 98 MG/DL 07/19/2012 Unknown LIPID GROUP 40145 CHOL 175 MG/DL 07/19/2012 Unknown LIPID GROUP 31521 RCHOL/HDL 3.43 RATIO 07/19/2012 Unknow n COMPREHENSIVE METABOLIC 55317 AST 18 U/L 2011 Unknown COMPREHENSIVE METABOLIC 75008 ALT 12 IU/L 2011 Unknown COMPREHENSIVE METABOLIC 65088 BUN 10 MG/DL 2011 Unknown COMPREHENSIVE METABOLIC 11283 ALBUMIN 4.1 GM/DL 2011 Unknown COMPREHENSIVE METABOLIC 11369 CHLORIDE 103 MMOL/L 07/19 Unknown COMPREHENSIVE METABOLIC 54527 BILI TOT 0.9 MG/DL 2011 Unknown COMPREHENSIVE METABOLIC 33333 ALK PHOS 62 U/L 2011 Unknown COMPREHENSIVE METABOLIC 54500 SODIUM 138 MMOL/L 07/19 Unknown COMPREHENSIVE METABOLIC 92108 CREATININE 1.08 MG/DL 10/2011 Unknown COMPREHENSIVE METABOLIC 12917 CALCIUM 9.1 MG/DL 2011 Unknown COMPREHENSIVE METABOLIC 05617 POTASSIUM 4.2 MMOL/L 07/19 Unknown COMPREHENSIVE METABOLIC 11403 PROT TOT 6.7 GM/DL 2011 Unknown COMPREHENSIVE METABOLIC 48095 Glucose 101 MG/DL 2011 Unknown COMPREHENSIVE METABOLIC 31646 BICARB 27 MMOL/L 2011 Unknown COMPREHENSIVE METABOLIC 60786 ANION GAP 8 MEQ/L 2011 Unknown GFR CALC [id number] GFR AA >60 ML/MIN 07/19/2012 Unknown GFR CALC 3100698 GFR NON-AA >60 ML/MIN 07/19/2012 Unknown Procedures Procedure Codes Date ROUTINE VENIPUNCTURE CPT-4: 78348 09/30/2019 COMPREHEN METABOLIC PANEL CPT-4: 21930 09/30/2019 COMPLETE CBC W/AUTO DIFF WBC CPT-4: 80960 09/30/2019 ASSAY OF PSA TOTAL CPT-4: 63441 09/30/2019 ASSAY THYROID STIM HORMONE CPT-4: 85741 09/30/2019 LIPID PANEL CPT-4: 37863 09/30/2019 ROUTINE VENIPUNCTURE CPT-4: 91611 09/24/2019 COMPLETE CBC W/AUTO DIFF WBC CPT-4: 16343 09/24/2019 COMPREHEN METABOLIC PANEL CPT-4: 41715 09/24/2019 LIPID PANEL CPT-4: 00928 09/24/2019 ASSAY THYROID STIM HORMONE CPT-4: 10601 09/24/2019 THER/PROPH/DIAG INJ SC/IM CPT-4: 62963 01/13/2019 TRIAMCINOLONE ACET INJ NOS CPT-4: J3301 01/13/2019 DEXAMETHASONE SODIUM PHOS CPT-4: J1100 01/13/2019 ROUTINE VENIPUNCTURE CPT-4: 99955 09/04/2018 COMPREHEN METABOLIC PANEL CPT-4: 74026 09/04/2018 COMPLETE CBC W/AUTO DIFF WBC CPT-4: 42625 09/04/2018 LIPID PANEL CPT-4: 01178 09/04/2018 ASSAY OF PSA TOTAL CPT-4: 77034 09/04/2018 ASSAY THYROID STIM HORMONE CPT-4: 27482 09/04/2018 URINALYSIS NONAUTO W/O SCOPE CPT-4: 48156 05/15/2018 ROUTINE VENIPUNCTURE CPT-4: 47038 11/16/2017 A FRT/VG P CPT-4: 1319882 11/16/2017 A FOOD C P CPT-4: 0591637 11/16/2017 A NUTS PNL CPT-4: 1844968 11/16/2017 THER/PROPH/DIAG INJ SC/IM CPT-4: 10765 11/06/2017 TRIAMCINOLONE ACET INJ NOS CPT-4: J3301 11/06/2017 DEXAMETHASONE SODIUM PHOS CPT-4: J1100 11/06/2017 ROUTINE VENIPUNCTURE CPT-4: 44668 09/03/2017 ASSAY OF FREE THYROXINE CPT-4: 51725 09/03/2017 ASSAY THYROID STIM HORMONE CPT-4: 34210 09/03/2017 ASSAY TRIIODOTHYRONINE (T3) CPT-4: 02031 09/03/2017 ROUTINE VENIPUNCTURE CPT-4: 00918 07/31/2017 COMPREHEN METABOLIC PANEL CPT-4: 75762 07/31/2017 COMPLETE CBC W/AUTO DIFF WBC CPT-4: 02024 07/31/2017 LIPID PANEL CPT-4: 96729 07/31/2017 FLU VACC PRSV FREE INC ANTIG 65 AND OLDER CPT-4: 48125 07/04/2017 ADMIN INFLUENZA VIRUS VAC CPT-4: G0008 07/04/2017 ROUTINE VENIPUNCTURE CPT-4: 03101 02/26/2017 ASSAY THYROID STIM HORMONE CPT-4: 70945 02/26/2017 COMPREHEN METABOLIC PANEL CPT-4: 34392 02/26/2017 COMPLETE CBC W/AUTO DIFF WBC CPT-4: 70702 02/26/2017 LIPID PANEL CPT-4: 98966 02/26/2017 ASSAY OF PSA TOTAL CPT-4: 04426 02/26/2017 FLUZONE, 5ML (Medicare) CPT-4: Q2038 06/28/2016 ADMIN INFLUENZA VIRUS VAC CPT-4: G0008 06/28/2016 ROUTINE VENIPUNCTURE CPT-4: 70523 05/19/2016 ASSAY OF FREE THYROXINE CPT-4: 63774 05/19/2016 ASSAY THYROID STIM HORMONE CPT-4: 21443 05/19/2016 COMPREHEN METABOLIC PANEL CPT-4: 41661 05/19/2016 COMPLETE CBC W/AUTO DIFF WBC CPT-4: 38671 05/19/2016 LIPID PANEL CPT-4: 07224 05/19/2016 VITAMIN B-12 CPT-4: 42600 05/19/2016 PPPS, initial visit CPT-4: G0438 05/10/2016 ROUTINE VENIPUNCTURE CPT-4: 15391 04/05/2015 ASSAY THYROID STIM HORMONE CPT-4: 53139 04/05/2015 COMPREHEN METABOLIC PANEL CPT-4: 53853 04/05/2015 COMPLETE CBC W/AUTO DIFF WBC CPT-4: 86948 04/05/2015 LIPID PANEL CPT-4: 65393 04/05/2015 ASSAY OF PSA TOTAL CPT-4: 94803 04/05/2015 ROUTINE VENIPUNCTURE CPT-4: 18260 07/19/2012 COMPREHEN METABOLIC PANEL CPT-4: 58559 07/19/2012 LIPID PANEL CPT-4: 52248 07/19/2012 ELECTROCARDIOGRAM COMPLETE CPT-4: 53612 03/22/2012 Vital Signs Date Vital 09/24/2019 Blood Pressure 1: 125/72 Code: 8480-6 BMI: 19.8 Code: 89198-2 Heart Rate 1: 88 bpm Height: 5'11" [...] 1: 102/60 Code: 8480-6 BMI: 19.1 Code: 63235-0 Heart Rate 1: 82 bpm Height: 5'11" Respiratory Rate: 22 bpm SpO2: 97% Tempera ture: 36.4 (C) / 97.6 (F) Weight: 137 lbs 04/25/2018 Blood Pressure 1: 118/64 Code: 8480-6 BMI: 19.2 Code: 48962-4 Heart Rate 1: 98 bpm Height: 5'11" Respiratory Rate: 20 bpm SpO2: 99% Tempera ture: 36.4 (C) / 97.6 (F) Weight: 138 lbs 11/06/2017 Blood Pressure 1: 108/68 Code: 8480-6 BMI: 18.5 Code: 75507-8 Heart Rate 1: 68 bpm Height: 5'11" Respiratory Rate: 20 bpm SpO2: 96% Tempera ture: 36.8 (C) / 98.2 (F) Weight: 133 lbs 09/03/2017 Blood Pressure 1: 122/64 Code: 8480-6 BMI: 17.6 Code: 09955-8 Heart Rate 1: 90 bpm Height: 5'11" Respiratory Rate: 20 bpm SpO2: 98% Tempera ture: 36.4 (C) / 97.6 (F) Weight: 126 lbs 08/21/2017 Blood Pressure 1: 114/80 Code: 8480-6 BMI: 17.9 Code: 08303-2 Heart Rate 1: 80 bpm Height: 5'11" Respiratory Rate: 20 bpm SpO2: 95% Tempera ture: 36.6 (C) / 97.9 (F) Weight: 128 lbs 02/13/2017 Blood Pressure 1: 122/60 Code: 8480-6 BMI: 18.5 Code: 48845-4 Heart Rate 1: 76 bpm Height: 5'11" Respiratory Rate: 20 bpm SpO2: 96% Tempera ture: 36.9 (C) / 98.4 (F) Weight: 133 lbs 11/23/2016 Blood Pressure 1: 126/70 Code: 8480-6 BMI: 18.5 Code: 46505-7 Heart Rate 1: 100 bpm Height: 5'11" Respiratory Rate: 20 bpm SpO2: 96% Tempera ture: 37.1 (C) / 98.8 (F) Weight: 133 lbs 05/23/2016 Blood Pressure 1: 128/82 Code: 8480-6 BMI: 18.5 Code: 40520-0 Heart Rate 1: 88 bpm Height: 5'11" Respiratory Rate: 20 bpm Temperature: 36 .7 (C) / 98.0 (F) Weight: 133 lbs 05/10/2016 Blood Pressure 1: 146/70 Code: 8480-6 BMI: 18.5 Code: 02554-3 Heart Rate 1: 84 bpm Height: 5'11" Respiratory Rate: 20 bpm Temperature: 36 .7 (C) / 98.1 (F) Weight: 133 lbs 04/01/2015 Blood Pressure 1: 102/60 Code: 8480-6 BMI: 18.5 Code: 44780-1 Heart Rate 1: 64 bpm Height: 5'11" Respiratory Rate: 20 bpm Temperature: 36 .8 (C) / 98.2 (F) Weight: 133 lbs 01/13/2014 Blood Pressure 1: 124/78 Code: 8480-6 BMI: 19.8 Code: 68369-4 Heart Rate 1: 76 bpm Height: 5'11" Respiratory Rate: 20 bpm Temperature: 36 .8 (C) / 98.2 (F) Weight: 142 lbs 04/03/2012 Blood Pressure 1: 106/76 Code: 8480-6 BMI: 20.9 Code: 34886-5 Heart Rate 1: 84 bpm Height: 5'11" Respiratory Rate: 20 bpm Temperature: 36 .7 (C) / 98.0 (F) Weight: 150 lbs 12/20/2011 Blood Pressure 1: 116/60 Code: 8480-6 BMI: 20.1 Code: 82660-8 Heart Rate 1: 80 bpm Height: 5'11" Respiratory Rate: 20 bpm Temperature: 36 .4 (C) / 97.6 (F) Weight: 144 lbs 10/24/2011 Blood Pressure 1: 132/74 Code: 8480-6 BMI: 19.7 Code: 94018-3 Heart Rate 1: 96 bpm Height: 5'11" [...] 04/05/2015 follow up 04/01/2015 follow up 01/13/2014 [facility] November 2012 lab draw 07/19/2012 follow up 04/03/2012 S/P stent placement in LAD, changed effient to plavix hip pain 12/20/2011 dyskinesia or tremor 10/24/2011 follow up 03/13/2011 started on effient, zocor, and atenolol follow up 02/20/2011 [facility]/Dr Chrisitan rojas follow up 02/23/2010 [facility], appt with Dr Bajwa 03/22/10 insomnia 01/12/2010 problems falling and staying asleep, takes nortriptyline Encounters Encounter Performer Location Codes Date () NURSE/OUTPATIENT VISIT EST Diagnosis: Essential (primary) hypertension[ICD10: I10] Diagnosis: Mixed hyperlipidemia[ICD10: E78.2] Diagnosis: Encounter for screening for malignant neoplasm of prostate[ICD10: Z12.5] Vonnie COLMENARES [employer]HE[employer] CPT-4: 28868 09/30/2019 ([id number]) OFFICE/OUTPATIENT VISIT EST Diagnosis: Encounter for therapeutic drug level monitoring[ICD10: Z51.81] Diagnosis: Essential tremor[ICD10: G25.0] Verna Ramirez VONNIE Alvarez ApplyfulRAHEEMTrilo[employer] CPT-4: 87230 09/24/2019 ([id number]) OFFICE/OUTPATIENT VISIT EST Diagnosis: Noninfective gastroenteritis and colitis, unspecified[ICD10: K52.9] Diagnosis: Hemorrhage of anus and rectum[ICD10: K62.5] Vonnie Loza [employer] CPT-4: 11183 05/26/2019 ([id number]) OFFICE/OUTPATIENT VISIT EST Diagnosis: Other intervertebral disc degeneration, 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] Diagnosis: Other forms of dyspnea[ICD10: R06.09] Vonnie MATHEWS [employer] [facility] CPT-4: 92434 03/17/2019 OFFICE/OUTPATIENT VISIT EST Diagnosis: Other intervertebral disc degeneration, 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] Diagnosis: Other symptoms and signs involving the musculoskeletal system[ICD10: R29.898] Vonnie MATHEWS [employer] [facility] CPT-4: 61527 02/18/2019 ([id number]) OFFICE/OUTPATIENT VISIT EST Diagnosis: Other allergic rhinitis[ICD10: J30.89] Akilah MATHEWS [employer] [facility] CPT-4: 35121 01/13/2019 ([id number]) NURSE/OUTPATIENT VISIT EST Diagnosis: Mixed hyperlipidemia[ICD10: E78.2] Diagnosis: Essential (primary) hypertension[ICD10: I10] Diagnosis: Encounter for screening for malignant neoplasm of prostate[ICD10: Z12.5] Diagnosis: Encounter for general adult medical examination with abnormal findings[ICD10: Z00.01] Diagnosis: Benign prostatic hyperplasia without lower urinary tract symptoms[ICD10: N40.0] Vonnie MATHEWS [employer] [facility] CPT-4: 70910 09/04/2018 ([id number]) OFFICE/OUTPATIENT VISIT EST Diagnosis: Otorrhea, left ear[ICD10: H92.12] Diagnosis: Impacted cerumen, right ear[ICD10: H61.21] Verna MATHEWS [employer] [facility] CPT-4: 37694 09/03/2018 ([id number]) OFFICE/OUTPATIENT VISIT EST Diagnosis: Other intervertebral disc degeneration, 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] Diagnosis: Primary insomnia[ICD10: F51.01] Diagnosis: Essential tremor[ICD10: G25.0] Vonnie MATHEWS [employer] [facility] CPT-4: 09422 08/26/2018 ([id number]) OFFICE/OUTPATIENT VISIT EST Diagnosis: Pelvic and perineal pain[ICD10: R10.2] Verna MATHEWS [employer] CPT-4: 92796 05/15/2018 ([id number]) OFFICE/OUTPATIENT VISIT EST Diagnosis: Encounter for therapeutic drug level monitoring[ICD10: Z51.81] Diagnosis: Acute sinusitis, unspecified[ICD10: J01.90] Diagnosis: Other intervertebral disc degeneration, 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] Diagnosis: Essential tremor[ICD10: G25.0] Diagnosis: Raynaud's syndrome without gangrene[ICD10: I73.00] Verna ASCENCIOLINE Denia MATHEWS [employer] CPT-4: 59616 04/25/2018 ([id number]) OFFICE/OUTPATIENT VISIT EST Diagnosis: Idiopathic urticaria[ICD10: L50.1] Diagnosis: Other urticaria[ICD10: L50.8] Vonnie COLMENARES GilbertoKim COLBY [employer] [facility] CPT-4: 46327 11/16/2017 ([id number]) OFFICE/OUTPATIENT VISIT EST Diagnosis: Idiopathic urticaria[ICD10: L50.1] Diagnosis: Other urticaria[ICD10: L50.8] Diagnosis: Other forms of dyspnea[ICD10: R06.09] Vonnie RODGERS GilbertoKim COLBYTriloq CPT-4: 00868 11/06/2017 ([id number]) OFFICE/OUTPATIENT VISIT EST Diagnosis: Dyspnea, unspecified[ICD10: R06.00] Diagnosis: Abnormal weight loss[ICD10: R63.4] Vonnie LUCIA [employer] MATHEWS [employer] CPT-4: 54037 09/03/2017 ([id number]) OFFICE/OUTPATIENT VISIT EST 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] Diagnosis: Mixed hyperlipidemia[ICD10: E78.2] Diagnosis: Essential tremor[ICD10: G25.0] Diagnosis: Essential (primary) hypertension[ICD10: I10] Diagnosis: Abnormal weight loss[ICD10: R63.4] Vonnie LUCIA Denia MATHEWS [employer] CPT-4: 75219 08/21/2017 ([id number]) OFFICE/OUTPATIENT VISIT EST Diagnosis: Mixed hyperlipidemia[ICD10: E78.2] Diagnosis: Essential (primary) hypertension[ICD10: I10] 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] Diagnosis: Anemia, unspecified[ICD10: D64.9] Vonnie MATHEWS DO [facility] CPT-4: 68292 07/31/2017 ([id number]) OFFICE/OUTPATIENT VISIT EST Diagnosis: FLU VACCINE[ICD10: Z23] Vonnie BOWMAN ER DO [facility] CPT-4: 53939 07/04/2017 ([id number]) OFFICE/OUTPATIENT VISIT EST Diagnosis: Mixed hyperlipidemia[ICD10: E78.2] Diagnosis: Essential tremor[ICD10: G25.0] 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] Diagnosis: Essential (primary) hypertension[ICD10: I10] Diagnosis: Supraventricular tachycardia[ICD10: I47.1] Diagnosis: Other fatigue[ICD10: R53.83] Diagnosis: Encounter for screening for malignant neoplasm of prostate[ICD10: Z12.5] Vonnie MATHEWS DO [facility] CPT-4: 49367 02/26/2017 ([id number]) OFFICE/OUTPATIENT VISIT EST Diagnosis: Essential tremor[ICD10: G25.0] Vonnie MATHEWS DO [facility] CPT-4: 55259 02/13/2017 ([id number]) OFFICE/OUTPATIENT VISIT EST Diagnosis: Essential tremor[ICD10: G25.0] Diagnosis: Other intervertebral disc degeneration, 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] Vonnie MATHEWS DO [facility] CPT-4: 53873 11/23/2016 ([id number]) OFFICE/OUTPATIENT VISIT EST Diagnosis: FLU VACCINE[ICD10: Z23] Vonnie BOWMAN ER DO [facility] CPT-4: 00650 06/28/2016 OFFICE/OUTPATIENT VISIT EST Diagnosis: Open bite of right hand, initial encounter[ICD10: S61.451A] Vonnie BOWMANER [employer] [facility] CPT-4: 45779 05/23/2016 ([id number]) OFFICE/OUTPATIENT VISIT EST Diagnosis: Encounter for general adult medical examination with abnormal findings[ICD10: Z00.01] Diagnosis: Mixed hyperlipidemia[ICD10: E78.2] Diagnosis: Essential tremor[ICD10: G25.0] 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] Vonnie Romuloiron LAIVONNIEOMAR BOWMAN [employer] [facility] CPT-4: 50185 05/19/2016 ([id number]) OFFICE/OUTPATIENT VISIT EST Diagnosis: HYPERLIPIDEMIA NEC/NOS[ICD9: 272.4] Diagnosis: CAD[ICD9: 414.00] Diagnosis: TACHYCARDIA[ICD9: 785.0] Diagnosis: HYPERTENSION[ICD9: 401.9] Diagnosis: Routine medical exam[ICD9: V70.0] Vonnie Galarza Denia SCHULTZEgr [employer] [facility] CPT-4: 33284 04/05/2015 ([id number]) OFFICE/OUTPATIENT VISIT EST Diagnosis: HYPERTENSION[ICD9: 401.9] Diagnosis: HYPERLIPIDEMIA NEC/NOS[ICD9: 272.4] Diagnosis: CAD[ICD9: 414.00] Diagnosis: LUMB/LUMBOSAC DISC DEGEN[ICD9: 722.52] Vonnie GASPAR Denia BOWMAN [employer] [facility] CPT-4: 02068 04/01/2015 ([id number]) OFFICE/OUTPATIENT VISIT EST Diagnosis: CHEST PAIN NOS[ICD9: 786.50] Diagnosis: PAIN IN THORACIC SPINE[ICD9: 724.1] Diagnosis: HYPERTENSION[ICD9: 401.9] Diagnosis: GERD[ICD9: 530.81] Vonnie COLMENARES Denia BOWMAN [employer] [facility] CPT-4: 24682 01/13/2014 ([id number]) OFFICE/OUTPATIENT VISIT EST Diagnosis: CAD[ICD9: 414.00] Diagnosis: HYPERLIPIDEMIA NEC/NOS[ICD9: 272.4] Vonnie ANNA Denia BOWMAN [employer] [facility] CPT-4: 53753 07/19/2012 ([id number]) OFFICE/OUTPATIENT VISIT EST Diagnosis: CAD[ICD9: 414.00] Diagnosis: INSOMNIA NOS[ICD9: 780.52] Vonnie Macias. OR YULISA DO [facility] CPT-4: 33642 04/03/2012 ([id number]) OFFICE/OUTPATIENT VISIT EST Diagnosis: CHEST PAIN NOS[ICD9: 786.50] Diagnosis: CAD[ICD9: 414.00] Vonnie Loza [employer] CPT-4: 12037 03/22/2012 ([id number]) OFFICE/OUTPATIENT VISIT EST Diagnosis: PROSTATITIS[ICD9: 601.9] Diagnosis: TREMOR NEC[ICD9: 333.1] Vonnie SCHULTZND ER DO [facility] CPT-4: 99959 12/20/2011 OFFICE/OUTPATIENT VISIT EST Diagnosis: TREMOR NEC[ICD9: 333.1] Diagnosis: TACHYCARDIA[ICD9: 785.0] Diagnosis: HYPERTENSION[ICD9: 401.9] Vonnie SCHULTZ NDER DO [facility] CPT-4: 17488 10/24/2011 OFFICE/OUTPATIENT VISIT EST Vonnie SCHULTZ NDER DO [facility] CPT- 4: 56195 03/13/2011 ([id number]) OFFICE/OUTPATIENT VISIT EST Vonnie GASPAR SKim ORENDER DO [facility] CPT-4: 59438 02/20/2011 ([id number]) OFFICE/OUTPATIENT VISIT, EST Vonnie NELSON S. ORENDER DO [facility] CPT-4: 80455 02/23/2010 ([id number]) OFFICE/OUTPATIENT VISIT, EST Vonnie NELSON S. ORENDER DO [facility] CPT-4: 06664 01/12/2010 Plan of Care Planned Activity Notes Codes Status Date Appointment: Vonnie Mathews [facility]el[facility] [phone] [facility] [facility] 09/30/2019 Appointment: Verna Ramirez [address] [place], [place] [id number] RESCHEDULED 09/25/2019 Visit Diagnosis Plan: Encounter for therapeutic drug l evel monitoring Discussion: UDS and contract completed today. ICD-9 : V58.83 ICD-10 : Z51.81 09/24/2019 Visit Diagnosis Plan: Essential tremor Discussion: sta ble on clonazepam. educated patient about purchasing a large, heavy pen that will allow him to improve his writing. instructed him that pens can be purchased on [email or web address]. ICD-9 : 333.1 ICD-10 : G25.0 09/24/2019 Appointment: Verna Ramirez [address] [id number] MEDICATION REVIEW 09/24/2019 Visit Diagnosis Plan: Hemorrhage of anus and rectum Di scussion: Update colonoscopy ICD-9 : 569.3 ICD-10 : K62.5 05/26/2019 Visit Diagnosis Plan: Noninfective gastroenteritis and colitis, unspecified Discussion: Flagyl [place] diet Update colonoscopy ICD-9 : 558.9 ICD-10 : K52.9 05/26/2019 Appointment: Vonnie Mathews [facility]Ptel[facility] [phone] [facility] [place] record request faxed 05/23; LM with medical records 05/26/19 Hospital Follow Up 05/26/2019 Care Plan: Referral Order SNOMED-CT : 30 [id number] Pending 05/26/2019 Visit Diagnosis Plan: Other intervertebral disc degene ration, lumbar region Discussion: Increase lyrica to 150mg po q HS Continue stretches from PT [facility] Fwup after that appointment ICD-9 : 722.52 ICD-10 : M51.36 03/17/2019 Appointment: Vonnie Mathews WPtel: [facility] [place] FOLLOW UP 03/17/2019 Visit Diagnosis Plan: [...] : M51.36 02/18/2019 Appointment: Vonnie Mathews WPtel: [address] [place] [address] FOLLOW UP 02/18/2019 Appointment: Vonnie Mathews WPtel: [address] [place] [address] US CANCELED 02/18/2019 Visit Diagnosis Plan: Other [...] J30.89 01/13/2019 Appointment: Akilah Lopez [address] Due for annual wellness ACUTE ILLNESS 01/14/20 Appointment: Vonnie Mathews WPtel: [address] [place] [address] US LAB 09/04/2018 Visit Diagnosis Plan: Otorrhea, [...] : H61.21 09/03/2018 Appointment: Verna Ramirez [address] ACUTE ILLNESS 09/03/2018 Visit Diagnosis Plan: [...] G25.0 08/26/2018 Appointment: Vonnie Mathews WPtel: [phone] [id number] [place] FOLLOW UP 08/26/2018 Visit Diagnosis Plan: [...] ICD-10 : R10.2 05/15/2018 Appointment: Verna Ramirez [address] [place], [place] [id number] ACUTE ILLNESS 05/15/2018 Patient Education: Patient Medication Summary Completed 05/15/2018 Care Plan: US EXAM PELVIC COMPLETE scrotal LOINC : 72578-4 Pending 05/15/2018 Visit Diagnosis Plan: Other intervertebral [...] ICD-10 : J01.90 04/25/2018 Appointment: Verna Ramirez [address] [place] [address] MEDICATION REVIEW 04/25/2018 Patient Education: Patient Medication Summary Completed 04/25/2018 Appointment: Vonnie Mathews WPtel: [address] [place] [address] 11/16/2017 Patient Education: Patient Medication Summary Completed [...] : L50.1 11/06/2017 Appointment: Vonnie Mathews WPtel: [address] [place] [address] FOLLOW UP 11/06/2017 Patient Education: Patient Medication [...] : R63.4 09/03/2017 Appointment: Vonnie Mathews WPtel: [address] [place], [place] [id number] US FOLLOW UP 09/03/2017 Patient Education: Patient Medication Summary Completed 09/03/2017 Visit Diagnosis Plan: Mixed hyperlipidemia Discussion: Lab discussed ICD-9 : 272.4 ICD-10 : E78.2 08/21/2017 Visit Diagnosis Plan: Essential tremor Discussion: Sta ble on Primidone ICD-9 : 333.1 ICD-10 : G25.0 08/21/2017 Visit Diagnosis Plan: Atherosclerotic he art disease of [place] coronary artery without angina pectoris Discussion: Sees Cardiology in 2 days To ER if CP returns before ICD-9 : 414.00 ICD-10 : I25.10 08/21/2017 Visit Diagnosis Plan: Abnormal weight loss Discussion: Start daily protein shake or smoothie ICD-9 : 783.21 ICD-10 : R63.4 08/21/2017 Visit Diagnosis Plan: Essential (primary) hypertension Discussion: Stable ICD-9 : 401.9 ICD-10 : I10 08/21/2017 Appointment: Vonnie Mathewstel: [address] [place] [address] FOLLOW UP 08/21/2017 Patient Education: Patient Medication Summary Completed 08/21/2017 Appointment: Vonnie Mathews WPtel: [address] [place] [address] LAB 07/31/2017 Patient Education: Patient Medication Summary Completed 07/31/2017 Appointment: Vonnie Mathews WPtel: [address] [place], [place] [phone] US INJECTION 07/04/2017 Patient Education: Patient Medication Summary Completed 07/04/2017 Appointment: Vonnie Mathews WPtel: [address] [place], [place] [id number] LAB 02/26/2017 Patient Education: Patient Medication Summary Completed 02/26/2017 Visit Diagnosis Plan: Essential tremor Discussion: Con tinue clonazepam at 1mg q AM and primidone 50mg q HS Follow Up: 3 months ICD-9 : 333.1 ICD-10 : G25.0 02/13/2017 Appointment: Vonnie Mathews WPtel: [phone] [facility] [place] 02/08 confirmed~sl FOLLOW UP 02/13/2017 Patient Education: Patient Medication Summary Completed 02/13/2017 Appointment: Vonnie Mathews WPtel: [address] [place], [place] [phone] US RESCHEDULED 01/23/2017 Visit Diagnosis Plan: Other intervertebral disc degene ration, lumbar region Discussion: DC oxycodone Tramadol 50mg 1-2 po TID prn pain Follow Up: 2 months ICD-9 : 722.52 ICD-10 : M51.36 11/23/2016 Visit Diagnosis Plan: Essential tremor Discussion: Inc rease clonazepam to 1mg po BID Discussed sinemet ICD-9 : 333.1 ICD-10 : G25.0 11/23/2016 Appointment: Vonnie Mathews WPtel: [address] [place] [address] 11/22 confirmed~sl MEDICATION REVIEW 11/23/2016 Patient Education: Patient Medication Summary Completed 11/23/2016 Patient Education: [facility] - Saving [employer] - Clonazepam - 18-64 - Dynamic Portal ID Completed 11/23/2016 Appointment: Vonnie Mathews WPtel: [address] [place], [place] [phone] [place] INJECTION 06/28/2016 Patient Education: Patient Medication Summary Completed 06/28/2016 Referral: Fernando Day WPtel: 1 [facility] Girish [id number] [place] [id number] per Maribeth, the patient is [...] if worsening 05/23/2016 Appointment: Vonnie Mathews WPtel: [address] [place], [place] [phone] ER Follow UP 05/23/2016 Patient Education: Patient Medication Summary Completed 05/23/2016 Appointment: Vonnie Mathews WPtel: [address] [place], [place] [phone] [place] LAB 05/19/2016 Patient Education: Patient Medication Summary Completed 05/19/2016 Visit Plan: Change coreg to 3.125mg BID Trial of low dose clonazepam 0.5mg BID for tremors Fwup with Dr. Ramsey as scheduled Return for fasting lab--CBC, CMP, TSH, free T4, Lipids, PSA, B12 Proceed with Colonoscopy 05/10/2016 Appointment: Vonnie Mathews WPtel: [address] [place], [place] [phone] 05/09 confirmed~ Annual Well Visit 05/10/2016 Patient Education: Patient Medication Summary Completed 05/10/2016 Care Plan: Referral Order SNOMED-CT : 30 [id number] Pending 05/10/2016 Appointment: Vonnie Mathews WPtel: [address] [place] [address] [place] Rescheduled for 05/10/16 at 2PM~lb RESCHEDULED 04/26/2016 Referral: [facility] [id number] Referral Initiated 04/29/2015 Appointment: Vonnie Mathews WPtel: [address] [place], [place] [phone] [place] LAB 04/05/2015 Patient Education: Patient Medication Summary Completed 04/05/2015 Visit Plan: Return in AM for fasting lab --CMP, lipids, CBC, TSH, PSA Change hydrocodone to oxycodone 7.5/325mg 1-2 po TID Schedule with cardiology Needs colonoscopy once cardiology evaluation complete Will need to restart chol meds after lab Recheck 1mo on pain meds 04/01/2015 Appointment: Vonnie Mathews WPtel: [address] [place], [place] [phone] 03/31 confirmed -mf PHYSICAL 04/01/2015 Patient Education: Patient Medication Summary Completed 04/01/2015 Appointment: Vonnie Mathews WPtel: [address] [place], [place] [id number] Annual Well Visit 09/23/2014 Visit Plan: Continue protonix Pt has fwu p with Card next month Rec chiropracter or PT for ribs/thoracics being out and could be contributing to chest pain 01/13/2014 Appointment: Vonnie Mathews WPtel: [address] [place] [address] FOLLOW UP 01/13/2014 Patient Education: Patient Medication Summary Completed 01/13/2014 Appointment: Ariella Mcnally WPtel: [address] [place] [address] US FOLLOW UP 12/12/2013 Appointment: Malika Cárdenas WPtel: [address] [place], [place] [phone] PHYSICAL 12/12/2013 Appointment: Vonnie Mathews WPtel: [address] [place], [place] [phone] ACUTE ILLNESS 02/20/2013 Appointment: Vonnie Mathews WPtel: [address] [place], [place] [phone] [place] LAB 07/19/2012 Patient Education: Patient Medication Summary Completed 07/19/2012 Appointment: Vonnie Mathews WPtel: [address] [place], [place] [phone] [place] FOLLOW UP 04/03/2012 Patient Education: Patient Medication Summary Completed 04/03/2012 Appointment: Vonnie Mathews WPtel: [address] [place], [place] [phone] ACUTE ILLNESS 03/22/2012 Patient Education: Patient Medication Summary Completed 03/22/2012 Appointment: Vonnie Mathews WPtel: [address] [place], [place] [phone] [place] FOLLOW UP 12/26/2011 Visit Plan: Add Cipro Continue current m eds 12/20/2011 Appointment: Vonnie Mathews WPtel: [address] [place], [place] [phone] ACUTE ILLNESS 12/20/2011 Patient Education: Patient Medication Summary Completed 12/20/2011 Visit Plan: Change neurontin to Cymbalta 30mg for 1wk then 60mg QD Add Propranolol for tremor 10/24/2011 Appointment: Vonnie Mathews WPtel: [address] [place] [address] ACUTE ILLNESS 10/24/2011 Appointment: Vonnie Mathews WPtel: [address] [place] [address] ACUTE ILLNESS 10/24/2011 Patient Education: Patient Medication Summary Completed 10/24/2011 Visit Plan: Continue current meds and fw up with Card as scheduled 03/13/2011 Appointment: Vonnie Mathews WPtel: [address] [place] [address] FOLLOW UP 03/13/2011 Patient Education: Patient Medication Summary Completed 03/13/2011 Visit Plan: Will obtain all records and lab from [place] [place] Discussed will likely need heart cath which pt states that Card did talk to him about in the hospital 02/20/2011 Appointment: Vonnie Mathews WPtel: [address] [place], [place] [id number] ACUTE ILLNESS 02/20/2011 Patient Education: Patient Medication Summary Completed 02/20/2011 Visit Plan: Cont Pepcid and Prilosec See Card for cardiac cath. 02/23/2010 Appointment: Vonnie Mathews WPtel: [address] [place], [place] [phone] US FOLLOW UP 02/23/2010 Patient Education: Patient Medication Summary Completed 02/23/2010 Visit Plan: Increase Pamelor to 75mg qhs Increase Hydrocodone to 10/325mg 1-2 po q6 prn 01/12/2010 Appointment: Vonnie Mathews WPtel: [phone] [id number] [place] ILL[place] 01/12/2010 Patient Education: Patient Medication Summary Completed 01/12/2010 Referral: Iván Pardo WPtel: [facility] [id number] Referral Initiated Referral: Fernando Day WPtel: #1 [id number] Referral Completed Referral: Fernando Day WPtel: #1 [facility] Referral Appointment Requested Instructions Comment . [...]
--- OUTSIDE RECORDS SUMMARY | 2020-02-10 08:17 | XMS REPORT | CCD ---
Author Author Nash Mathews D.O. Organization [facility] Address [address] [place] [address] Phone Care Team Providers Care Patient Account Liaison Name Role Phone Vonnie Mathews D.O., PP Unavailable CCM Unavailable Summary Purpose Interface Exchange Insurance Providers Payer name Policy type / Coverage type Covered alliance party ID Effective Begin Date Effective End Date [employer] MEDICARE Medicare Part B [id number] 2019 Unknown Family History Family History data not found Social History Social History Element Codes Description Effective Dates Marital status Unknown 10/24/[address]: 977801941 Nonsmoker 03/29/2011 Allergies, Adverse Reactions, Alerts Substance [...] R63.4 08/21/2017 Active 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: [...] Fill Instructions Tamiflu 75 mg capsule RxNorm: 356426 1 Capsule(s) Oral QD 11/03/2019 11/12/2019 Active Tamiflu 75 mg capsule RxNorm: 731160 1 Capsule(s) Oral QD 11/03/2019 11/02/2019 Inactive clonazepam 1 mg tablet RxNorm: 075386 TAKE 1 TABLET BY MOUTH EV SUSAN MORNING 10/16/2019 11/14/2019 Active pravastatin 20 mg tablet RxNorm: 285407 1 Tablet(s) Oral QD 020 04/06/2020 Active Singulair 10 mg tablet RxNorm: 820115 TAKE 1 TABLET BY MOUTH EV SUSAN DAY 10/10/2019 07/05/2020 Active Lyrica 75 mg capsule RxNorm: 283690 1 Capsule(s) Oral every nig ht at bedtime 10/09/2019 01/07/2020 Active clonazepam 1 mg tablet RxNorm: 704003 TAKE 1 TABLET BY MOUTH EV SUSAN AM 09/23/2019 10/15/2019 Inactive clonazepam 1 mg tablet RxNorm: 082481 TAKE 1 TABLET BY MOUTH EV SUSAN AM 08/21/2019 09/22/2019 Inactive Singulair 10 mg tablet RxNorm: 672028 TABLET(S) 1 TABLET(S) PO QD 1 10/09/2019 Inactive Flagyl 500 mg tablet RxNorm: 874947 1 Tablet(s) PO TID 05/26/2019 Inactive clonazepam 1 mg tablet RxNorm: 870477 TAKE 1 TABLET BY MOUTH EV SUSAN MORNING 05/23/2019 06/21/2019 Inactive pravastatin 20 mg tablet RxNorm: 500503 1 Tablet(s) PO QD 04/14/2019 10/09/2019 Inactive Needs updated fasting labs Singulair 10 mg tablet RxNorm: 772439 Tablet(s) 1 TABLET(S) PO QD 0 04/14/2019 07/12/2019 Inactive clonazepam 1 mg tablet RxNorm: 458800 1 Tablet(s) PO QAM 02/21/2019 0 05/23/2019 Inactive Bevespi Aerosphere 9 mcg-4.8 mcg HFA aerosol inhaler RxNorm: 5545239 2 Puff(s) INH BID 02/19/2019 No Stop Date Active ProAir HFA 90 mcg/actuation aerosol inhaler RxNorm: 904089 2 Puff(s) INH Q4H as needed 02/19/2019 09/24/2019 Inactive metoprolol tartrate 25 mg tablet RxNorm: 940760 1/2 Tablet(s) PO BI D 02/18/2019 05/18/2019 Inactive pravastatin 20 mg tablet RxNorm: 842282 1 Tablet(s) PO QD Needs updated fasting labs 01/13/2019 04/14/2019 Inactive Needs updated fa sting labs Singulair 10 mg tablet RxNorm: 439426 Tablet(s) 1 TABLET(S) PO QD 0 01/13/2019 04/12/2019 Inactive Plavix 75 mg tablet RxNorm: 478865 Tablet(s) 1 TABLET(S) PO QD 04/201906/20/2019 Inactive [SAVINGS FOR NON-COVERED SHANDA GS -- BIN:326269, PCN: ASPROD1, Group: XXXXX, ID# [id number], Questions: . THIS IS NOT INSURANCE.] Singulair 10 mg tablet RxNorm: 551745 1 TABLET(S) PO QD 10/29/2018 Inactive primidone 50 mg tablet RxNorm: 359089 2 TABLET(S) PO BI D TAKE 2 TABLETS BY MOUTH EVERY NIGHT AT BEDTIME 10/07/2018 01/12/2019 Inactive Patient requests 90 days supply pravastatin 20 mg tablet RxNorm: 335748 1 TABLET(S) PO QD 09/23/2018 01/12/2019 Inactive clonazepam 1 mg tablet RxNorm: 079040 1 Tablet(s) PO QAM 09/19/2018 0 12/17/2018 Inactive primidone 50 mg tablet RxNorm: 554349 TABLET(S) TAKE 2 TABLETS BY MOUTH EVERY NIGHT AT BEDTIME 09/18/2018 01/12/2019 Inactive ciprofloxacin 0.2 % ear drops in a dropperette RxNorm: 05609 6 2 Drop(s) left otic (ear) BID 09/03/2018 09/09/2018 Inactive primidone 50 mg tablet RxNorm: 062031 2 Tablet(s) PO BI D TAKE 2 TABLETS BY MOUTH EVERY NIGHT AT BEDTIME 08/26/2018 10/06/2018 Inactive Ambien 5 mg tablet RxNorm: 278632 TAKE 1 TABLET BY MOUTH EVERY NIGHT AT BEDTIME 08/05/2018 09/03/2018 Inactive Singulair 10 mg tablet RxNorm: 661295 1 TABLET(S) PO QD 07/23/2018 Inactive clonazepam 1 mg tablet RxNorm: 222664 TAKE 1 TABLET BY MOUTH EV SUSAN MORNING 07/23/2018 08/21/2018 Inactive Plavix 75 mg tablet RxNorm: 578296 1 TABLET(S) PO QD 07/04/201812/22 Inactive [SAVINGS FOR NON-COVERED DRUGS -- BIN:00 358, PCN: ASPROD1, Group: XXXXX, ID# [id number], Questions: . THIS IS NOT INSURANCE.] clonazepam 1 mg tablet RxNorm: 407116 TAKE 1 TABLET BY MOUTH EV SUSAN MORNING 06/25/2018 07/23/2018 Inactive clonazepam 1 mg tablet RxNorm: 137925 TAKE 1 TABLET BY MOUTH EV SUSAN MORNING 05/23/2018 06/21/2018 Inactive primidone 50 mg tablet RxNorm: 856267 Tablet(s) TAKE 2 TABLETS BY MOUTH EVERY NIGHT AT BEDTIME 05/16/2018 08/25/2018 Inactive oxycodone-acetaminophen 7.5 mg-325 mg tablet RxNorm: 2536584 1-2 Tablet(s) PO TID as needed 04/25/2018 05/24/2018 Inactive Singulair 10 mg tablet RxNorm: 507043 1 Tablet(s) PO QD 04/25/2018 Inactive Medrol (Jose) 4 mg tablets in a dose pack RxNorm: 850869 Tablet(s) PO take as directed 04/25/2018 09/02/2018 Inactive clonazepam 1 mg tablet RxNorm: 545983 TAKE 1 TABLET BY MOUTH EV SUSAN MORNING 04/24/2018 05/22/2018 Inactive Plavix 75 mg tablet RxNorm: 852691 1 TABLET(S) PO QD 04/04/201807/02 Inactive [SAVINGS FOR NON-COVERED DRUGS -- BIN:00 3585, PCN: ASPROD1, Group: XXXXX, ID# [id number], Questions: . THIS IS NOT INSURANCE.] pravastatin 20 mg tablet RxNorm: 903559 1 Tablet(s) PO QD 03/21/2018 09/16/2018 Inactive ProAir HFA 90 mcg/actuation aerosol inhaler RxNorm: 871031 2 Puff(s) INH Q4H as needed 03/18/2018 03/17/2018 Inactive tamsulosin 0.4 mg capsule RxNorm: 656052 1 CAPSULE(S) PO QD 018 01/12/2019 Inactive clonazepam 1 mg tablet RxNorm: 895282 1 Tablet(s) PO QAM 02/25/2018 0 04/25/2018 Inactive tamsulosin 0.4 mg capsule RxNorm: 947190 1 Capsule(s) PO QD 018 03/13/2018 Inactive tamsulosin 0.4 mg capsule RxNorm: 796019 1 Capsule(s) PO QD 018 02/03/2018 Inactive tamsulosin 0.4 mg capsule RxNorm: 442786 1 Capsule(s) PO QD 018 02/12/2018 Inactive Ambien 5 mg tablet RxNorm: 024585 Tablet(s) TAKE 1 TAB LET BY MOUTH EVERY NIGHT AT BEDTIME 01/24/2018 08/05/2018 Inactive primidone 50 mg tablet RxNorm: 875596 Tablet(s) TAKE 2 TABLETS BY MOUTH EVERY NIGHT AT BEDTIME 01/18/2018 05/16/2018 Inactive cyclobenzaprine 10 mg tablet RxNorm: 891023 1 Tablet(s) PO TID as needed for muscle spasm 01/11/2018 02/09/2018 Inactive [SAVINGS FOR NON -COVERED DRUGS -- BIN:667620, PCN: ASPROD1, Group: XXXXX, ID# [id number], Questions: . THIS IS NOT INSURANCE.] clonazepam 1 mg tablet RxNorm: 438475 1 Tablet(s) PO QAM 12/24/2017 0 02/21/2018 Inactive prednisone 20 mg tablet RxNorm: 779716 1 Tablet(s) PO QD 11/06/2017 0 11/10/2017 Inactive EpiPen 2-Jose 0.3 mg/0.3 mL injection, auto-injector RxNorm: 423527 1 Unit Dose IM as needed 11/06/2017 09/24/2019 Inactive ProAir HFA 90 mcg/actuation aerosol inhaler RxNorm: 332210 2 Puff(s) INH Q4H as needed 10/30/2017 03/17/2018 Inactive primidone 50 mg tablet RxNorm: 002789 TAKE 2 TABLETS BY MOUTH EVERY NIGHT AT BEDTIME 10/15/2017 01/17/2018 Inactive Plavix 75 mg tablet RxNorm: 813142 1 Tablet(s) PO QD 10/01/201703/29 Inactive [SAVINGS FOR NON-COVERED DRUGS -- BIN:00 3585, PCN: ASPROD1, Group: XXXXX, ID# [id number], Questions: . THIS IS NOT INSURANCE.] clonazepam 1 mg tablet RxNorm: 474688 1 Tablet(s) PO QAM 09/19/2017 0 12/16/2017 Inactive primidone 50 mg tablet RxNorm: 293423 2 Tablet(s) PO QHS 08/29/2017 0 01/18/2018 Inactive oxycodone-acetaminophen 7.5 mg-325 mg tablet RxNorm: 2941288 1-2 Tablet(s) PO TID as needed 08/22/2017 09/19/2017 Inactive pravastatin 20 mg tablet RxNorm: 675056 1 Tablet(s) PO QD 08/21/2017 03/21/2018 Inactive carvedilol 3.125 mg tablet RxNorm: 225378 1 Tablet(s) P O BID to replace 6.25mg dose 08/21/2017 09/02/2017 Inactive primidone 50 mg tablet RxNorm: 998711 TAKE 2 TABLETS BY MOUTH EVERY NIGHT AT BEDTIME 06/18/2017 08/28/2017 Inactive clonazepam 1 mg tablet RxNorm: 293813 1 Tablet(s) PO QAM 06/04/2017 1 11/02/2016 Inactive Plavix 75 mg tablet RxNorm: 242415 1 Tablet(s) PO QD 04/10/201710/01 Inactive [SAVINGS FOR NON-COVERED DRUGS -- BIN:00 6035, PCN: ASPROD1, Group: XXXXX, ID# [id number], Questions: . THIS IS NOT INSURANCE.] pravastatin 20 mg tablet RxNorm: 521752 1 Tablet(s) PO QD 02/26/2017 08/24/2017 Inactive carvedilol 3.125 mg tablet RxNorm: 442861 1 Tablet(s) P O BID to replace 6.25mg dose 02/26/2017 08/21/2017 Inactive Ultram 50 mg tablet RxNorm: 047099 TAKE 1 TO 2 TABLETS BY MOUTH THREE TIMES DAILY NEEDED FOR PAIN 02/26/2017 03/07/2017 Inactive pravastatin 20 mg tablet RxNorm: 056325 1 Tablet(s) PO QD 02/26/2017 08/21/2017 Inactive carvedilol 3.125 mg tablet RxNorm: 534466 1 Tablet(s) P O BID to replace 6.25mg dose 02/26/2017 08/20/2017 Inactive clonazepam 0.5 mg tablet RxNorm: 685284 1 Tablet(s) PO QAM 02/14/20 17 02/13/2017 Inactive primidone 50 mg tablet RxNorm: 468814 1 Tablet(s) PO QHS 02/13/2017 0 05/01/2017 Inactive clonazepam 1 mg tablet RxNorm: 093982 1 Tablet(s) PO QAM 02/13/2017 0 05/13/2017 Inactive primidone 50 mg tablet RxNorm: 329776 1/2 Tablet(s) PO QD for 7 days then increase to 1 tablet at bedtime 01/09/2017 02/12/2017 Inactive pravastatin 20 mg tablet RxNorm: 264261 Tablet(s) 1 TABLET(S) PO QD 11/29/2016 02/25/2017 Inactive clonazepam 1 mg tablet RxNorm: 840539 1 Tablet(s) PO BID replac es 0.5mg dose 11/23/2016 01/08/2017 Inactive pravastatin 20 mg tablet RxNorm: 804550 1 TABLET(S) PO QD 11/17/2016 11/28/2016 Inactive Ambien 5 mg tablet RxNorm: 782973 TAKE 1 TABLET BY MOUTH EVERY NIGHT AT BEDTIME 11/17/2016 12/14/2016 Inactive clonazepam 0.5 mg tablet RxNorm: 598976 TAKE 1 TABLET BY MOUTH TWICE DAILY 11/17/2016 11/22/2016 Inactive Plavix 75 mg tablet RxNorm: 437514 1 Tablet(s) PO QD 11/06/201604/09 Inactive [SAVINGS FOR NON-COVERED DRUGS -- BIN:00 3585, PCN: ASPROD1, Group: XXXXX, ID# [id number], Questions: . THIS IS NOT INSURANCE.] Plavix 75 mg tablet RxNorm: 337360 1 Tablet(s) PO QD 08/28/201611/05 Inactive [SAVINGS FOR NON-COVERED DRUGS -- BIN:00 3585, PCN: ASPROD1, Group: XXXXX, ID# [id number], Questions: . THIS IS NOT INSURANCE.] Lidoderm 5 % topical patch RxNorm: 9718225 Application T OP 2 patches for 12hrs then off for 12hrs 08/28/2016 08/27/2016 Inactive clonazepam 0.5 mg tablet RxNorm: 400786 1 Tablet(s) PO BID 08/07/20 16 11/22/2016 Inactive pravastatin 20 mg tablet RxNorm: 041148 1 Tablet(s) PO QD 08/07/2016 11/04/2016 Inactive cyclobenzaprine 10 mg tablet RxNorm: 165408 1 Tablet(s) PO TID as needed for muscle spasm 08/07/2016 09/05/2016 Inactive [SAVINGS FOR NON -COVERED DRUGS -- BIN:338699, PCN: ASPROD1, Group: XXXXX, ID# [id number], Questions: . THIS IS NOT INSURANCE.] Plavix 75 mg tablet RxNorm: 155256 1 Tablet(s) PO QD 08/07/201608/27 Inactive [SAVINGS FOR NON-COVERED DRUGS -- BIN: 3585, PCN: ASPROD1, Group: XXXXX, ID# [id number], Questions: . THIS IS NOT INSURANCE.] carvedilol 3.125 mg tablet RxNorm: 181438 1 Tablet(s) P O BID to replace 6.25mg dose 08/07/2016 02/02/2017 Inactive clonazepam 0.5 mg tablet RxNorm: 120340 1 Tablet(s) PO BID 07/04/20 16 08/07/2016 Inactive Plavix 75 mg tablet RxNorm: 772824 1 TABLET(S) PO QD 06/20/201608/06 Inactive [SAVINGS FOR NON-COVERED DRUGS -- BIN: 3585, PCN: ASPROD1, Group: XXXXX, ID# [id number], Questions: . THIS IS NOT INSURANCE.] clonazepam 0.5 mg tablet RxNorm: 345665 1 Tablet(s) PO BID 06/09/20 16 07/03/2016 Inactive pravastatin 20 mg tablet RxNorm: 831872 1 Tablet(s) PO QD 05/23/2016 08/06/2016 Inactive pravastatin 20 mg tablet RxNorm: 396912 1 Tablet(s) PO QD 05/23/2016 05/22/2016 Inactive carvedilol 3.125 mg tablet RxNorm: 547796 1 Tablet(s) P O BID to replace 6.25mg dose 05/10/2016 08/06/2016 Inactive carvedilol 3.125 mg tablet RxNorm: 806484 1 Tablet(s) P O BID to replace 6.25mg dose 05/10/2016 05/09/2016 Inactive clonazepam 0.5 mg tablet RxNorm: 090378 1 Tablet(s) PO BID 05/10/20 16 06/08/2016 Inactive carvedilol 6.25 mg tablet RxNorm: 087618 1 Tablet(s) PO QD 05/10/20 16 05/10/2016 Inactive simvastatin 40 mg tablet RxNorm: 515946 1 TABLET(S) PO QD 04/10/2016 05/09/2016 Inactive Medrol (Jose) 4 mg tablets in a dose pack RxNorm: 664784 Tablet(s) PO As Directed 01/13/2016 05/09/2016 Inactive cyclobenzaprine 10 mg tablet RxNorm: 609729 1 TABLET(S) PO TID NEEDED FOR SPASM 01/11/2016 03/10/2016 Inactive [SAVINGS FOR NON -COVERED DRUGS -- BIN:704698, PCN: ASPROD1, Group: XXXXX, ID# [id number], Questions: . THIS IS NOT INSURANCE.] Plavix 75 mg tablet RxNorm: 336386 1 Tablet(s) PO QD 12/30/201506/19 Inactive [SAVINGS FOR NON-COVERED DRUGS -- BIN:00 3585, PCN: ASPROD1, Group: XXXXX, ID# [id number], Questions: . THIS IS NOT INSURANCE.] Ambien 5 mg tablet RxNorm: 775029 TAKE 1 TABLET BY MOUTH EVERY DAY AT BEDTIME 11/15/2015 11/17/2016 Inactive simvastatin 40 mg tablet RxNorm: 856967 1 Tablet(s) PO QD 10/11/2015 01/12/2019 Inactive simvastatin 40 mg tablet RxNorm: 932929 1 Tablet(s) PO QD 10/08/2015 10/10/2015 Inactive Ambien 5 mg tablet RxNorm: 643874 TAKE 1 TABLET BY MOUTH EVERY NIGHT AT BEDTIME 07/27/2015 11/15/2015 Inactive Plavix 75 mg tablet RxNorm: 910441 1 Tablet(s) PO QD 06/28/201512/29 Inactive [SAVINGS FOR NON-COVERED DRUGS -- BIN:00 3585, PCN: ASPROD1, Group: XXXXX, ID# [id number], Questions: . THIS IS NOT INSURANCE.] Coreg 6.25 mg tablet RxNorm: 116218 1 TABLET(S) PO BID 04/19/2015 Inactive [SAVINGS FOR NON-COVERED DRUGS -- BIN:00 3585, PCN: ASPROD1, Group: XXXXX, ID# XXXXXXX, Questions: . THIS IS NOT INSURANCE.] simvastatin 40 mg tablet RxNorm: 301773 1 Tablet(s) PO QD 04/05/2015 04/04/2015 Inactive simvastatin 40 mg tablet RxNorm: 016142 1 Tablet(s) PO QD 04/05/2015 10/11/2015 Inactive Plavix 75 mg tablet RxNorm: 160162 1 TABLET(S) PO QD 03/22/201504/20 Inactive [SAVINGS FOR NON-COVERED DRUGS -- BIN:00 3585, PCN: ASPROD1, Group: XXXXX, ID# [id number], Questions: . THIS IS NOT INSURANCE.] Plavix 75 mg tablet RxNorm: 652048 1 Tablet(s) PO QD 03/22/201506/28 Inactive [SAVINGS FOR NON-COVERED DRUGS -- BIN:00 3585, PCN: ASPROD1, Group: XXXXX, ID# [id number], Questions: . THIS IS NOT INSURANCE.] Ambien 5 mg tablet RxNorm: 777113 1 Tablet(s) PO QHS 12/17/201407/28 Inactive [SAVINGS FOR NON-COVERED DRUGS -- BIN:00 3585, PCN: ASPROD1, Group: XXXXX, ID# [id number], Questions: . THIS IS NOT INSURANCE.] Coreg 6.25 mg tablet RxNorm: 525263 1 Tablet(s) PO BID 12/17/2014 Inactive [SAVINGS FOR NON-COVERED DRUGS -- BIN:00 3585, PCN: ASPROD1, Group: XXXXX, ID# [id number], Questions: . THIS IS NOT INSURANCE.] Plavix 75 mg tablet RxNorm: 949361 1 Tablet(s) PO QD 12/17/201403/16 Inactive [SAVINGS FOR NON-COVERED DRUGS -- BIN:00 3585, PCN: ASPROD1, Group: XXXXX, ID# [id number], Questions: . THIS IS NOT INSURANCE.] cyclobenzaprine 10 mg tablet RxNorm: 447687 1 Tablet(s) PO TID as needed for spasm 12/17/2014 03/16/2015 Inactive [SAVINGS FOR NON -COVERED DRUGS -- BIN:914730, PCN: ASPROD1, Group: XXXXX, ID# [id number], Questions: . THIS IS NOT INSURANCE.] Coreg 6.25 mg tablet RxNorm: 362777 1 Tablet(s) PO BID 10/21/201409/2014 Inactive [SAVINGS FOR NON-COVERED DRUGS -- BIN:00 3585, PCN: ASPROD1, Group: XXXXX, ID# [id number], Questions: . THIS IS NOT INSURANCE.] Plavix 75 mg tablet RxNorm: 232703 1 Tablet(s) PO QD 10/21/201412/16 Inactive [SAVINGS FOR NON-COVERED DRUGS -- BIN:00 3585, PCN: ASPROD1, Group: XXXXX, ID# XXXXXXX, Questions: . THIS IS NOT INSURANCE.] Plavix 75 mg tablet RxNorm: 741019 1 Tablet(s) PO QD Ne eds routine check up--last seen March 2012 09/21/2014 10/20/2014 Inactive [SAVINGS FOR UNINSURED PATIENTS -- BIN:564536, PCN: ASPROD1, Group: AME08, ID# [id number], Process claim through [employer], for questions: . THIS IS NOT INSURANCE.] Ambien 5 mg tablet RxNorm: 424145 1 Tablet(s) PO QHS 09/21/201412/16 Inactive [SAVINGS FOR UNINSURED PATIENTS -- BIN:0 55963, PCN: ASPROD1, Group: AME08, ID# [id number], Process claim through [employer], for questions: . THIS IS NOT INSURANCE.] Coreg 6.25 mg tablet RxNorm: 587940 1 Tablet(s) PO BID 09/21/201411/2014 Inactive [SAVINGS FOR UNINSURED PATIENTS -- BIN:0 35020, PCN: ASPROD1, Group: AME08, ID# [id number], Process claim through [employer], for questions: . THIS IS NOT INSURANCE.] Plavix 75 mg tablet RxNorm: 745536 1 Tablet(s) PO QD Ne eds routine check up--last seen March 2012 08/04/2014 09/02/2014 Inactive [SAVINGS FOR UNINSURED PATIENTS -- BIN:500745, PCN: ASPROD1, Group: AME08, ID# [id number], Process claim through [employer], for questions: . THIS IS NOT INSURANCE.] Plavix 75 mg tablet RxNorm: 626961 1 Tablet(s) PO QD Ne eds routine check up--last seen March 2012 08/03/2014 08/03/2014 Inactive Protonix 40 mg tablet,delayed release RxNorm: 715930 1 Tablet(s ) PO QD 06/08/2014 02/17/2019 Inactive [SAVINGS FOR UNINSUR ED PATIENTS -- BIN:417896, PCN: ASPROD1, Group: AME08, ID# [id number], Process claim through [employer], for questions: . THIS IS NOT INSURANCE.] hydrocodone 10 mg-acetaminophen 325 mg tablet RxNorm: 337864 1 Tablet(s) PO BID as needed for pain 02/18/2014 03/31/2015 Inactive Coreg 6.25 mg tablet RxNorm: 726308 1 Tablet(s) PO BID 02/02/2014 Inactive Protonix 40 mg granules delayed-release packet RxNorm: 673112 1 Tablet(s) PO QD 01/13/2014 06/08/2014 Inactive Plavix 75 mg tablet RxNorm: 050135 1 Tablet(s) PO QD Ne eds routine check up--last seen March 2012 01/13/2014 08/02/2014 Inactive Plavix 75 mg tablet RxNorm: 127574 1 Tablet(s) PO QD Ne eds routine check up--last seen March 2012 12/09/2013 01/07/2014 Inactive Coreg 6.25 mg tablet RxNorm: 003486 1 Tablet(s) PO BID 12/09/2013 Inactive Cymbalta 60 mg capsule,delayed release RxNorm: 820058 1 Capsule (s) PO QD 10/31/2013 01/12/2014 Inactive Coreg 6.25 mg tablet RxNorm: 769043 1 Tablet(s) PO BID 10/31/2013 Inactive Plavix 75 mg tablet RxNorm: 858808 1 Tablet(s) PO QD Ne eds routine check up--last seen March 2012 10/31/2013 11/29/2013 Inactive Coreg 6.25 mg tablet RxNorm: 259879 1 Tablet(s) PO BID 10/31/2013 Inactive atorvastatin 40 mg tablet RxNorm: 562204 1 Tablet(s) PO QD 10/31/19 14 03/31/2015 Inactive Plavix 75 mg tablet RxNorm: 658452 1 Tablet(s) PO QD Ne eds routine check up--last seen March 2012 09/23/2013 10/30/2013 Inactive cyclobenzaprine 10 mg tablet RxNorm: 866784 1 Tablet(s) PO TID as needed for spasm 09/23/2013 No Stop Date Active cyclobenzaprine 10 mg tablet RxNorm: 454816 1 Tablet(s) PO TID as needed for spasm 07/04/2013 09/22/2013 Inactive atorvastatin 40 mg tablet RxNorm: 807150 1 Tablet(s) PO QD 06/23/20 13 10/30/2013 Inactive atorvastatin 40 mg tablet RxNorm: 201706 1 Tablet(s) PO QD 04/22/20 13 06/22/2013 Inactive Nucynta 50 mg tablet RxNorm: 550432 1-2 Tablet(s) PO Q6H as nee ded for pain 01/01/2013 01/12/2014 Inactive Ambien 5 mg tablet RxNorm: 752559 1 Tablet(s) PO QHS 10/16/201201/13 Inactive Plavix 75 mg tablet RxNorm: 273771 1 Tablet(s) PO QD 09/19/201209/13 Inactive Protonix 40 mg tablet,delayed release RxNorm: 814335 1 Tablet(s ) PO QD 09/19/2012 09/18/2012 Inactive simvastatin 40 mg tablet RxNorm: 387923 1 Tablet(s) PO QD 09/19/2012 02/23/2013 Inactive Protonix 40 mg tablet,delayed release RxNorm: 623660 1 Tablet(s ) PO QD 09/19/2012 09/13/2013 Inactive Ultram 50 mg tablet RxNorm: 546716 1-2 Tablet(s) PO QID as need ed for pain 09/19/2012 02/26/2017 Inactive propranolol 80 mg tablet RxNorm: 522513 1 Tablet(s) PO QHS 09/19/19 13 09/18/2012 Inactive Cymbalta 60 mg capsule,delayed release RxNorm: 692318 1 Capsule (s) PO QD 09/19/2012 09/18/2012 Inactive Cymbalta 60 mg capsule,delayed release RxNorm: 646247 1 Capsule (s) PO QD 09/19/2012 03/17/2013 Inactive propranolol 80 mg tablet RxNorm: 543914 1 Tablet(s) PO QHS 09/19/19 13 02/23/2013 Inactive hydrocodone-acetaminophen 10 mg-325 mg tablet RxNorm: 091241 2 1-2 Tablet(s) PO QID 07/25/2012 02/23/2013 Inactive Ambien 10 mg tablet RxNorm: 154616 1 Tablet(s) PO QHS as needed for sleep 07/10/2012 01/27/2013 Inactive propranolol 80 mg tablet RxNorm: 360378 1 Tablet(s) PO QHS 05/13/20 12 09/18/2012 Inactive hydrocodone-acetaminophen 10 mg-325 mg tablet RxNorm: 412496 2 1-2 Tablet(s) PO QID 05/02/2012 No Stop Date Active Restoril 15 mg Cap RxNorm: 371556 1-2 Capsule(s) PO QHS 05/02/2012 Inactive propranolol 80 mg tablet RxNorm: 735656 1 Tablet(s) PO QHS 05/02/2005/12/2012 Inactive Chantix Starting Month Box 0.5 mg (11)-1 mg (42) Tabs in a Dose Pack RxNorm: 354071 Tablet(s) PO As Directed 04/01/2012 01/27/2013 Inactive simvastatin 40 mg tablet RxNorm: 808005 1 Tablet(s) PO QD 03/28/2012 09/18/2012 Inactive simvastatin 40 mg Tab RxNorm: 474703 1 Tablet(s) PO QD 03/22/201207/2012 Inactive Effient 10 mg Tab RxNorm: 295852 1 Tablet(s) PO QD 03/22/2012 012 Inactive Prilosec 40 mg Capsule, delayed release RxNorm: 828969 1 Capsul e(s) PO QD 03/22/2012 09/18/2012 Inactive Prilosec 40 mg Capsule, delayed release RxNorm: 764978 1 Capsul e(s) PO QD 03/19/2012 03/21/2012 Inactive Cymbalta 60 mg capsule,delayed release RxNorm: 345342 1 Capsule (s) PO QD 03/04/2012 08/30/2012 Inactive hydrocodone-acetaminophen 10 mg-325 mg Tab RxNorm: 6976288 1-2 T ablet(s) PO QID 01/23/2012 No Stop Date Active Cymbalta 60 mg Capsule, delayed release RxNorm: 089842 1 Capsul e(s) PO QD 01/23/2012 03/03/2012 Inactive Cipro 500 mg Tab RxNorm: 737642 1 Tablet(s) PO BID 12/20/2011 012 Inactive Cymbalta 60 mg Capsule, delayed release RxNorm: 428700 1 Capsul e(s) PO QD 12/13/2011 01/22/2012 Inactive nortriptyline 75 mg Cap RxNorm: 870782 1 Capsule(s) PO QHS 11/29/1904/02/2012 Inactive Cymbalta 60 mg Cap RxNorm: 547626 1 Capsule(s) PO QD 10/24/201112/11 Inactive propranolol 80 mg Tab RxNorm: 899955 1 Tablet(s) PO QHS 10/24/2011 Inactive hydrocodone-acetaminophen 10 mg-325 mg Tab RxNorm: 1298483 1-2 T ablet(s) PO QID 09/29/2011 No Stop Date Active hydrocodone-acetaminophen 10 mg-325 mg Tab RxNorm: 6120495 1-2 T ablet(s) PO QID 07/25/2011 No Stop Date Active hydrocodone-acetaminophen 10 mg-325 mg Tab RxNorm: 8066019 1-2 T ablet(s) PO QID 02/14/2011 No Stop Date Active Prilosec 40 mg Cap RxNorm: 360656 1 Capsule(s) PO 01/03/2011 01/13/20 19 Inactive nortriptyline 75 mg Cap RxNorm: 249326 1 Capsule(s) PO QHS 01/04/20 11 07/01/2011 Inactive Neurontin 600 mg Tab RxNorm: 725178 1 Tablet(s) PO QHS 12/08/201011/2011 Inactive hydrocodone-acetaminophen 5 mg-500 mg Tab RxNorm: 184127 2 Tablet(s) PO Q4-6H prn 10/20/2010 01/08/2011 Inactive Diltzac ER 240 mg Cap RxNorm: 822141 1 Capsule(s) PO QD 07/14/2010 Inactive Nortriptyline 75 mg Cap RxNorm: 577899 1 Capsule(s) PO QHS 05/09/2001/12/2019 Inactive Neurontin 600 mg Tab RxNorm: 388899 1 Tablet(s) PO QD 03/17/201012/17 Inactive Nortriptyline 75 mg Cap RxNorm: 714028 1 Capsule(s) PO 01/12/2010 Inactive Nortriptyline 50 mg Cap RxNorm: 704067 1 Capsule(s) PO QHS 01/13/20 10 01/11/2010 Inactive Diltzac ER 240 mg Cap RxNorm: 887906 1 Capsule(s) PO QD 12/06/2009 Inactive aspirin 81 mg Tab RxNorm: 451836 1 Tablet(s) PO QD No Start Date Active Vitamin D3 2,000 unit tablet RxNorm: 484456 1 Tablet(s) PO QD No Star t Date Active paixpxmuc-kvhvvgsye-qpqyaw complex no.233 oral RxNorm: oral No Start Date Active primidone 50 mg tablet RxNorm: 916645 2 Tablet(s) PO BID No Start Date Active Prilosec 40 mg Capsule, delayed release RxNorm: 852707 1 Capsul e(s) PO QD No Start Date 03/18/2012 Inactive Prilosec 20 mg Cap RxNorm: 686445 1 Capsule(s) PO QHS No Start Date 0 01/02/2011 Inactive primidone 50 mg tablet RxNorm: 220449 1/2 Tablet(s) PO QHS for 1week then go full tab if needed No Start Date 05/01/2017 Inactive ProAir HFA 90 mcg/actuation aerosol inhaler RxNorm: 084048 2 Puff(s) INH Q4H as needed No Start Date 10/29/2017 Inactive clonazepam 0.5 mg tablet RxNorm: 372949 1/2 Tablet(s) PO BID No Sta rt Date 02/12/2017 Inactive Pepcid AC 10 mg Tab RxNorm: 964530 1 Tablet(s) PO QAM No Start Date 0 02/19/2011 Inactive Coreg Oral RxNorm: Oral No Start Date 01/12/2014 Inactive primidone 50 mg tablet RxNorm: 399564 1/2 Tablet(s) PO QD for 7 days then increase to 1 tablet at bedtime No Start Date 01/08/2017 Inactive Medrol (Jose) 4 mg tablets in a dose pack RxNorm: 657998 Tablet(s) PO As Directed No Start Date 01/12/2016 Inactive Plavix 75 mg tablet RxNorm: 323442 1 Tablet(s) PO QD No Start Date Inactive cyclobenzaprine 10 mg tablet RxNorm: 129650 1 Tablet(s) PO TID as needed for spasm No Start Date 07/03/2013 Inactive Bevespi Aerosphere 9 mcg-4.8 mcg HFA aerosol inhaler RxNorm: 0189563 2 Puff(s) INH BID No Start Date 02/18/2019 Inactive tramadol 50 mg tablet RxNorm: 724101 1-2 Tablet(s) PO TID as ne eded for pain No Start Date 01/12/2019 Inactive clonazepam 1 mg tablet RxNorm: 309428 1 Tablet(s) PO QAM No Start D ate 09/18/2018 Inactive hydrocodone-acetaminophen 5 mg-500 mg Tab RxNorm: 799605 2 Tablet(s) PO Q4-6H prn No Start Date 10/19/2010 Inactive lisinopril 20 mg Tab RxNorm: 056282 1/2 Tablet(s) PO QD No Start Da te 03/12/2011 Inactive Lyrica 75 mg capsule RxNorm: 171198 1 Capsule(s) PO QHS No Start Da te 10/08/2019 Inactive Protonix 40 mg tablet,delayed release RxNorm: 531126 1 Tablet(s ) PO QD No Start Date 06/07/2014 Inactive Lipitor Oral RxNorm: Oral No Start Date 01/12/2014 Inactive primidone 50 mg tablet RxNorm: 327570 2 Tablet(s) PO QAM and 1 tablet at HS No Start Date 02/17/2019 Inactive hydrocodone-acetaminophen 10 mg-325 mg Tab RxNorm: 0399885 1-2 T ablet(s) PO QID No Start Date 02/13/2011 Inactive Ultram 50 mg tablet RxNorm: 259844 1-2 Tablet(s) PO QID as need ed for pain No Start Date 09/18/2012 Inactive Effient 10 mg Tab RxNorm: 034365 1 Tablet(s) PO QD No Start Date 01/2012 Inactive Bevespi Aerosphere 9 mcg-4.8 mcg HFA aerosol inhaler RxNorm: 8000429 2 Puff(s) INH BID No Start Date 10/29/2017 Inactive Neurontin Oral RxNorm: Oral No Start Date 01/12/2010 Inactive primidone 50 mg tablet RxNorm: 663298 1 Tablet(s) PO QD No Start Da te 01/12/2019 Inactive Chantix Starting Month Box 0.5 mg (11)-1 mg (42) Tabs in a Dose Pack RxNorm: 669221 Tablet(s) PO No Start Date 03/31/2012 Inactive atenolol 25 mg Tab RxNorm: 074530 1 Tablet(s) PO QD No Start Date 02/2012 Inactive Neurontin 600 mg Tab RxNorm: 144733 1 Tablet(s) PO QD No Start Date 0 03/16/2010 Inactive Nucynta 50 mg tablet RxNorm: 318609 1-2 Tablet(s) PO Q6H as nee ded for pain No Start Date 12/31/2012 Inactive simvastatin 40 mg Tab RxNorm: 730648 1 Tablet(s) PO QD No Start Date 03/21/2012 Inactive Medication Administered No Medication Administered data Immunizations Vaccine Codes Date Status Influenza CVX: 135 07/04/2017 Complete Results Observation Observation Code Item Item Code Result Date S ervice Location COMPLETE BLOOD COUNT [id number] WBC 4.9 10e9/L 09/30/19 20 Unknown COMPLETE BLOOD COUNT [id number] RBC 4.65 10e12/L 2019 Unknown COMPLETE BLOOD COUNT [id number] HEMOGLOBIN 13.8 g/dL 09/30/19 20 Unknown COMPLETE BLOOD COUNT [id number] HEMATOCRIT 42.3 % 09/30/19 20 Unknown COMPLETE BLOOD COUNT [id number] MCV 91.0 fL 0 Unknown COMPLETE BLOOD COUNT [id number] MCH 29.7 pg 0 Unknown COMPLETE BLOOD COUNT [id number] MCHC 32.6 g/dL 0 Unknown COMPLETE BLOOD COUNT [id number] PLATELET COUNT 230 10e9/L Unknown COMPLETE BLOOD COUNT 3154619 Mean Plt Volume 9.9 fL Unknown COMPLETE BLOOD COUNT [id number] Neut Auto 52.5 % 0 Unknown COMPLETE BLOOD COUNT [id number] Lymph Auto 30.8 % 09/30/19 20 Unknown COMPLETE BLOOD COUNT 2895083 [place] Auto 11.2 % 0 Unknown COMPLETE BLOOD COUNT [id number] RDW 13.5 % 0 Unknown COMPLETE BLOOD COUNT [id number] Eos Auto 5.1 % 0 Unknown COMPLETE BLOOD COUNT [id number] Baso Auto 0.4 % 0 Unknown COMPLETE BLOOD COUNT [id number] Neutrophil Abs 2.57 10e9/L Unknown COMPLETE BLOOD COUNT [id number] Lymphocyte Abs 1.51 10e9/L Unknown COMPLETE BLOOD COUNT [id number] Monocyte Abs 0.55 10e9/L 09/17 Unknown COMPLETE BLOOD COUNT [id number] Eosinophil Abs 0.25 10e9/L Unknown COMPLETE BLOOD COUNT [id number] RDW-SD 43.9 fL 0 Unknown COMPLETE BLOOD COUNT [id number] Basophil Abs 0.02 10e9/L 09/17 Unknown GFR CALC 0478595 GFR Non Afr Amr >60 mL/min 09/30/2019 Un known GFR CALC [id number] GFR Afr Amr >60 mL/min 09/30/2019 Unknow n THYROID STIMULATING HORMONE 73952 TSH 1.129 uIU/mL 09/30/2019 Unknown PSA EQUIMOLAR BARBIE 99501 PSA Total 0.77 ng/mL 0 Unknown L[facility] 74545 Cholesterol 192 mg/dL 09/30/2019 Unkno wn [facility] 79085 Triglyceride 86 mg/dL 09/30/2019 Unkn own LIP[facility] GROUP 93071 HDL CHOLESTEROL 64 mg/dL 09/30/2019 U nknown L[facility] GROUP 93292 Chol/HDL Ratio 3.00 ratio 09/30/2019 U nknown L[facility] GROUP 55035 NON-HDL Chol 128 mg/dL 09/30/2019 Unkn own L[facility] GROUP 63155 LDL Cholesterol 111 mg/dL 09/30/2019 U nknown COMPREHENSIVE METABOLIC 90653 AST 17 U/L 2019 Unknown COMPREHENSIVE METABOLIC 91728 ALT 10 U/L 2019 Unknown COMPREHENSIVE METABOLIC 46396 BUN 13 mg/dL 2019 Unknown COMPREHENSIVE METABOLIC 68280 ALBUMIN 4.3 g/dL 2019 Unknown COMPREHENSIVE METABOLIC 33608 CHLORIDE 102 mmol/L 09/30 Unknown COMPREHENSIVE METABOLIC 10177 Bili Total 0.6 mg/dL 09/30 Unknown COMPREHENSIVE METABOLIC 52339 ALK PHOS 91 U/L 2019 Unknown COMPREHENSIVE METABOLIC 55068 SODIUM 138 mmol/L 09/30 Unknown COMPREHENSIVE METABOLIC 67227 CREATININE 1.09 mg/dL 09/17 Unknown COMPREHENSIVE METABOLIC 58019 CALCIUM 9.0 mg/dL 2019 Unknown COMPREHENSIVE METABOLIC 05305 POTASSIUM 4.5 mmol/L 09/30 Unknown COMPREHENSIVE METABOLIC 11397 Total Protein 6.8 g/dL Unknown COMPREHENSIVE METABOLIC 22729 Glucose 91 mg/dL 2019 Unknown COMPREHENSIVE METABOLIC 99006 Bicarbonate 28 mmol/L 09/17 Unknown COMPREHENSIVE METABOLIC 93048 AGAP 8 mmol/L 2019 Unknown COMPLETE BLOOD COUNT [id number] WBC 4.9 10e9/L 09/04/20 18 Unknown COMPLETE BLOOD COUNT [id number] RBC 4.42 10e12/L 2017 Unknown COMPLETE BLOOD COUNT [id number] HEMOGLOBIN 13.4 g/dL 09/04/20 18 Unknown COMPLETE BLOOD COUNT [id number] HEMATOCRIT 40.5 % 09/04/20 18 Unknown COMPLETE BLOOD COUNT [id number] MCV 91.6 fL 8 Unknown COMPLETE BLOOD COUNT [id number] MCH 30.3 pg 8 Unknown COMPLETE BLOOD COUNT 9149413 MCHC 33.1 g/dL 8 Unknown COMPLETE BLOOD COUNT 5928811 PLATELET COUNT 224 10e9/L Unknown COMPLETE BLOOD COUNT 6124088 Mean Plt Volume 9.9 fL Unknown COMPLETE BLOOD COUNT 9048931 Neut Auto 60.8 % 8 Unknown COMPLETE BLOOD COUNT [id number] Lymph Auto 26.8 % 09/04/20 18 Unknown COMPLETE BLOOD COUNT 0436708 [place] Auto 10.4 % 8 Unknown COMPLETE BLOOD COUNT 7854339 RDW 12.8 % 8 Unknown COMPLETE BLOOD COUNT 9067833 Eos Auto 1.6 % 8 Unknown COMPLETE BLOOD COUNT 8457254 Baso Auto 0.4 % 8 Unknown COMPLETE BLOOD COUNT 0177303 Neutrophil Abs 2.98 10e9/L Unknown COMPLETE BLOOD COUNT [id number] Lymphocyte Abs 1.31 10e9/L Unknown COMPLETE BLOOD COUNT [id number] Monocyte Abs 0.51 10e9/L 08/17 Unknown COMPLETE BLOOD COUNT [id number] Eosinophil Abs 0.08 10e9/L Unknown COMPLETE BLOOD COUNT 4441934 RDW-SD 41.6 fL 8 Unknown COMPLETE BLOOD COUNT [id number] Basophil Abs 0.02 10e9/L 08/17 Unknown COMPREHENSIVE METABOLIC 96462 AST 16 U/L 2017 Unknown COMPREHENSIVE METABOLIC 15539 ALT 8 U/L 2017 Unknown COMPREHENSIVE METABOLIC 96433 BUN 12 mg/dL 2017 Unknown COMPREHENSIVE METABOLIC 13104 ALBUMIN 4.4 g/dL 2017 Unknown COMPREHENSIVE METABOLIC 64217 CHLORIDE 107 mmol/L 09/04 Unknown COMPREHENSIVE METABOLIC 54986 Bili Total 1.0 mg/dL 09/04 Unknown COMPREHENSIVE METABOLIC 40563 ALK PHOS 58 U/L 2017 Unknown COMPREHENSIVE METABOLIC 16996 SODIUM 142 mmol/L 09/04 Unknown COMPREHENSIVE METABOLIC 77853 CREATININE 0.97 mg/dL 08/17 Unknown COMPREHENSIVE METABOLIC 68611 CALCIUM 9.2 mg/dL 2017 Unknown COMPREHENSIVE METABOLIC 29431 POTASSIUM 4.6 mmol/L 09/04 Unknown COMPREHENSIVE METABOLIC 99252 Total Protein 6.5 g/dL Unknown COMPREHENSIVE METABOLIC 15583 Glucose 96 mg/dL 2017 Unknown COMPREHENSIVE METABOLIC 52750 Bicarbonate 29 mmol/L 08/17 Unknown COMPREHENSIVE METABOLIC 51150 AGAP 6 mmol/L 2017 Unknown LIPID GROUP 06487 Cholesterol 182 mg/dL 09/04/2018 Unkno wn LIPID GROUP 46194 Triglyceride 84 mg/dL 09/04/2018 Unkn own LIP[facility] GROUP 26931 HDL CHOLESTEROL 76 mg/dL 09/04/2018 U nknown LIP[facility] GROUP 96246 Chol/HDL Ratio 2.39 ratio 09/04/2018 U nknown LIPID GROUP 24911 NON-HDL Chol 106 mg/dL 09/04/2018 Unkn own LIPID GROUP 50142 LDL Cholesterol 89 mg/dL 09/04/2018 U nknown GFR CALC 5841275 GFR Non Afr Amr >60 mL/min 09/04/2018 Un known GFR CALC 0703576 GFR Afr Amr >60 mL/min 09/04/2018 Unknow n THYROID STIMULATING HORMONE 17471 TSH 0.713 uIU/mL 09/04/2018 Unknown PSA EQUIMOLAR BARBIE 77284 PSA Total 0.66 ng/mL 8 Unknown A FOOD C P [id number] [place] Cl Class 0 11/17/2017 Unknown A FOOD C P [id number] [place] Ct <0.35 kU/L 11/17/2017 Unknow n A FOOD C P [id number] [place] Cl Class 0 11/17/2017 Unkn own A FOOD C P [id number] [place] Ct <0.35 kU/L 11/17/2017 Unk nown A FOOD C P 6480924 Egg White Cl Class 0 11/17/2017 Unkno wn A FOOD C P 9444514 Egg White Ct <0.35 kU/L 11/17/2017 Unkn own A FOOD C P 6405624 Egg Yolk Cl Class 0 11/17/2017 Unknow n A FOOD C P 1247397 Egg Yolk Ct <0.35 kU/L 11/17/2017 Unkno wn A FOOD C P 1707359 Cow Milk Cl Class 0 11/17/2017 Unknow n A FOOD C P 5376038 Cow Milk Ct <0.35 kU/L 11/17/2017 Unkno wn A FOOD C P 1741186 Peanut Cl Class 0 11/17/2017 Unknown A FOOD C P 1668102 Peanut Ct <0.35 kU/L 11/17/2017 Unknown A FOOD C P 9824491 Shrimp Cl Class 0 11/17/2017 Unknown A FOOD C P 1336390 [place] Ct <0.35 kU/L 11/17/2017 Unknown A FOOD C P 6645060 [place] Cl Class 0 11/17/2017 Unknown A FOOD C P 3457093 [place] Ct <0.35 kU/L 11/17/2017 Unknow n A FOOD C P 2834484 [place] Cl Class 0 11/17/2017 Unknown A FOOD C P 8227938 Wheat Ct <0.35 kU/L 11/17/2017 Unknown A FOOD C P 0721955 Potato Cl Class 0 11/17/2017 Unknown A FOOD C P 6227258 Potato Ct <0.35 kU/L 11/17/2017 Unknown A FOOD C P 5400772 Beef Cl Class 2 11/17/2017 Unknown A FOOD C P 6585186 Beef Ct 0.88 kU/L 11/17/2017 Unknown A FOOD C P 6649852 [place] Cl Class 0 11/17/2017 Unknown A FOOD C P 5702452 [place] Ct <0.35 kU/L 11/17/2017 Unknown A FOOD C P 1712716 Pork Cl Class 0 11/17/2017 Unknown A FOOD C P 0199724 [place] Ct <0.35 kU/L 11/17/2017 Unknown A FOOD C P 4693506 [place] Cl Class 0 11/17/2017 Unknown A FOOD C P 6878204 [place] Ct <0.35 kU/L 11/17/2017 Unknown A FOOD C P 9190295 [place] Cl Class 0 11/17/2017 Unkn own A FOOD C P 5224801 [place] Ct <0.35 kU/L 11/17/2017 Unk nown A FOOD C P 2123363 [place] Cl Class 0 11/17/2017 Unknown A FOOD C P 8154230 [place] Ct <0.35 kU/L 11/17/2017 Unknown A FOOD C P 3693531 [place] Cl Class 0 11/17/2017 Unknown A FOOD C P 5751912 [place] Ct <0.35 kU/L 11/17/2017 Unknown A FOOD C P 4426449 [place] CL Class 0 11/17/2017 Unknown A FOOD C P 9474696 [place] <0.35 kU/L 11/17/2017 Unknown A FOOD C P 7031076 [place] Cl Class 0 11/17/2017 Unknown A FOOD C P 9691478 [place] Ct <0.35 kU/L 11/17/2017 Unknown A FOOD C P 6867749 Oat Cl Class 0 11/17/2017 Unknown A FOOD C P 5885272 Oat Ct <0.35 kU/L 11/17/2017 Unknown A FOOD C P 3984651 [place] Cl Class 0 11/17/2017 Unknown A FOOD C P 3325541 [place] Ct <0.35 kU/L 11/17/2017 Unknown A FOOD C P 6393750 Chicken Meat CL Class 0 11/17/2017 Un known A FOOD C P 9694439 Chicken Meat Ct <0.35 kU/L 11/17/2017 U nknown A FOOD C P 1450129 [place] Cl Class 0 11/17/2017 Unknown A FOOD C P 6601502 [place] Ct <0.35 kU/L 11/17/2017 Unknown A FOOD C P 8848148 Pec[place] Meat Cl Class 0 11/17/2017 Unkn own A FOOD C P 8120025 [place]ec[place] Meat Ct <0.35 kU/L 11/17/2017 Unk nown A NUTS PNL 0421642 Peanut Cl Class 0 11/17/2017 Unknown A NUTS PNL 7310655 Peanut Ct <0.35 kU/L 11/17/2017 Unknown A NUTS PNL 8587873 [place] Meat Cl Class 0 11/17/2017 Unk nown A NUTS PNL 9424847 [place] Ct <0.35 kU/L 11/17/2017 Un known A NUTS PNL 3400266 [place] Meat Cl Class 0 11/17/2017 Unkn own A NUTS PNL 4947563 [place] Ct <0.35 kU/L 11/17/2017 Unk nown A NUTS PNL 2097973 [place] Cl Class 0 11/17/2017 Unknown A NUTS PNL 2725800 [place] Ct <0.35 kU/L 11/17/2017 Unknown A NUTS PNL 5483532 [place] Cl Class 0 11/17/2017 Unknow n A NUTS PNL 1656155 [place] Ct <0.35 kU/L 11/17/2017 Unkno wn A NUTS PNL 3681476 [place] Cl Class 0 11/17/2017 Unkno wn A NUTS PNL 5028752 [place] Ct <0.35 kU/L 11/17/2017 Unkn own A NUTS PNL 7870677 [place] Cl Class 0 11/17/2017 Unknown A NUTS PNL 2856143 [place] Ct <0.35 kU/L 11/17/2017 Unknown A NUTS PNL 6263231 [place] Cl Class 0 11/17/2017 Unkno wn A NUTS PNL [id number] [place] Ct <0.35 kU/L 11/17/2017 Unkn own A NUTS PNL [id number] Allergen Interp See Note 11/17/2017 Un known A FRT/VG P 0711707 [place] Cl Class 0 11/17/2017 Unkn own A FRT/VG P 2293183 [place] Ct <0.35 kU/L 11/17/2017 Unk nown A FRT/VG P 0872505 [place] Cl Class 0 11/17/2017 Unknown A FRT/VG P 3060653 [place] Ct <0.35 kU/L 11/17/2017 Unknown A FRT/VG P 5127087 [place] Cl Class 0 11/17/2017 Unkn own A FRT/VG P 6812764 [place] Ct <0.35 kU/L 11/17/2017 Unk nown A FRT/VG P 9496009 [place] Cl Class 0 11/17/2017 Unknown A FRT/VG P 2113227 [place] Ct <0.35 kU/L 11/17/2017 Unknown A FRT/VG P 9567401 [place] Cl Class 0 11/17/2017 Unknown A FRT/VG P 1824636 [place] Ct <0.35 kU/L 11/17/2017 Unknown A FRT/VG P 4292849 [place] Cl Class 1 11/17/2017 Unknown A FRT/VG P 1323839 [place] Ct 0.48 kU/L 11/17/2017 Unknown A FRT/VG P 9442773 [place] Fruit Cl Class 0 11/17/2017 Unk nown A FRT/VG P 9878924 [place] Ct <0.35 kU/L 11/17/2017 Un known A FRT/VG P [id number] [place] Fruit Cl Class 0 11/17/2017 Unk nown A FRT/VG P [id number] [place] Ct <0.35 kU/L 11/17/2017 Un known A FRT/VG P 8004170 [place] Cl Class 0 11/17/2017 Unknown A FRT/VG P [id number] [place] Ct <0.35 kU/L 11/17/2017 Unknown A FRT/VG P 0611997 [place] Cl Class 0 11/17/2017 Unknown A FRT/VG P 4428456 [place] Ct <0.35 kU/L 11/17/2017 Unknown A FRT/VG P 2315636 [place] Fruit Cl Class 0 11/17/2017 Unkn own A FRT/VG P 2386367 [place] Ct <0.35 kU/L 11/17/2017 Unk nown A FRT/VG P 2305235 Swt [place] Cl Class 0 11/17/2017 Unkn own A FRT/VG P [id number] Swt [place] Ct <0.35 kU/L 11/17/2017 Unk nown THYROID STIMULATING HORMONE 38185 TSH 1.371 uIU/mL 09/03/2017 Unknown FREE T4 40192 T4 Free 1.26 ng/dL 09/03/2017 Unknown ASSAY TRIIODOTHYRONINE (T3) 25247 T3 Total 0.9 ng/mL Unknown COMPLETE BLOOD COUNT [id number] WBC 5.9 10e9/L 07/31/20 17 Unknown COMPLETE BLOOD COUNT [id number] RBC 4.64 10e12/L 2016 Unknown COMPLETE BLOOD COUNT 7130104 HEMOGLOBIN 14.2 g/dL 07/31/20 17 Unknown COMPLETE BLOOD COUNT 9080896 HEMATOCRIT 42.1 % 07/31/20 17 Unknown COMPLETE BLOOD COUNT 8397023 MCV 90.7 fL 7 Unknown COMPLETE BLOOD COUNT 7198821 MCH 30.6 pg 7 Unknown COMPLETE BLOOD COUNT 0642746 MCHC 33.7 g/dL 7 Unknown COMPLETE BLOOD COUNT 5725687 PLATELET COUNT 195 10e9/L Unknown COMPLETE BLOOD COUNT 5085091 Mean Plt Volume 10.0 fL Unknown COMPLETE BLOOD COUNT 6082358 Neut Auto 47.5 % 7 Unknown COMPLETE BLOOD COUNT 2355945 Lymph Auto 37.4 % 07/31/20 17 Unknown COMPLETE BLOOD COUNT 0620424 [place] Auto 11.7 % 7 Unknown COMPLETE BLOOD COUNT 2213983 Eos Auto 3.2 % 7 Unknown COMPLETE BLOOD COUNT 0813680 RDW 12.8 % 7 Unknown COMPLETE BLOOD COUNT 8472396 Baso Auto 0.2 % 7 Unknown COMPLETE BLOOD COUNT 5753186 Neutrophil Abs 2.80 10e9/L Unknown COMPLETE BLOOD COUNT 1855393 Lymphocyte Abs 2.21 10e9/L Unknown COMPLETE BLOOD COUNT 7323250 Monocyte Abs 0.69 10e9/L 07/18 Unknown COMPLETE BLOOD COUNT 7784295 Eosinophil Abs 0.19 10e9/L Unknown COMPLETE BLOOD COUNT 9910730 RDW-SD 41.6 fL 7 Unknown COMPLETE BLOOD COUNT [id number] Basophil Abs 0.01 10e9/L 07/18 Unknown LIPID GROUP 78337 Cholesterol 186 mg/dL 07/31/2017 Unkno wn LIPID GROUP 37296 Triglyceride 129 mg/dL 07/31/2017 Unkn own LIPID GROUP 13449 HDL CHOLESTEROL 79 mg/dL 07/31/2017 U nknown LIPID GROUP 49802 Chol/HDL Ratio 2.35 ratio 07/31/2017 U nknown LIPID GROUP 47416 NON-HDL Chol 107 mg/dL 07/31/2017 Unkn own LIPID GROUP 33193 LDL Cholesterol 81 mg/dL 07/31/2017 U nknown GFR CALC 7642016 GFR Non Afr Amr >60 mL/min 07/31/2017 Un known GFR CALC 5391323 GFR Afr Amr >60 mL/min 07/31/2017 Unknow n COMPREHENSIVE METABOLIC 27712 AST 19 U/L 2016 Unknown COMPREHENSIVE METABOLIC 34436 ALT 12 U/L 2016 Unknown COMPREHENSIVE METABOLIC 54714 BUN 15 mg/dL 2016 Unknown COMPREHENSIVE METABOLIC 62744 ALBUMIN 4.4 g/dL 2016 Unknown COMPREHENSIVE METABOLIC 16548 CHLORIDE 102 mmol/L 07/31 Unknown COMPREHENSIVE METABOLIC 80803 Bili Total 0.9 mg/dL 07/31 Unknown COMPREHENSIVE METABOLIC 26511 ALK PHOS 53 U/L 2016 Unknown COMPREHENSIVE METABOLIC 89526 SODIUM 138 mmol/L 07/31 Unknown COMPREHENSIVE METABOLIC 34154 CREATININE 1.06 mg/dL 07/18 Unknown COMPREHENSIVE METABOLIC 65990 CALCIUM 9.3 mg/dL 2016 Unknown COMPREHENSIVE METABOLIC 12218 POTASSIUM 4.0 mmol/L 07/31 Unknown COMPREHENSIVE METABOLIC 48672 Total Protein 6.8 g/dL Unknown COMPREHENSIVE METABOLIC 21426 Glucose 86 mg/dL 2016 Unknown COMPREHENSIVE METABOLIC 32216 Bicarbonate 28 mmol/L 07/18 Unknown COMPREHENSIVE METABOLIC 10737 AGAP 8 mmol/L 2016 Unknown COMPREHENSIVE METABOLIC 05894 AST 18 U/L 2015 Unknown COMPREHENSIVE METABOLIC 82878 ALT 9 U/L 2015 Unknown COMPREHENSIVE METABOLIC 96099 BUN 11 mg/dL 2015 Unknown COMPREHENSIVE METABOLIC 44250 ALBUMIN 4.2 g/dL 2015 Unknown COMPREHENSIVE METABOLIC 74546 CHLORIDE 104 mmol/L 05/19 Unknown COMPREHENSIVE METABOLIC 65316 Bili Total 1.2 mg/dL 05/19 Unknown COMPREHENSIVE METABOLIC 33878 ALK PHOS 54 U/L 2015 Unknown COMPREHENSIVE METABOLIC 21168 SODIUM 140 mmol/L 05/19 Unknown COMPREHENSIVE METABOLIC 63666 CREATININE 1.03 mg/dL 10/2015 Unknown COMPREHENSIVE METABOLIC 01710 CALCIUM 9.3 mg/dL 2015 Unknown COMPREHENSIVE METABOLIC 40657 POTASSIUM 4.9 mmol/L 05/19 Unknown COMPREHENSIVE METABOLIC 73959 Total Protein 6.7 g/dL Unknown COMPREHENSIVE METABOLIC 20309 Glucose 92 mg/dL 2015 Unknown COMPREHENSIVE METABOLIC 36705 Bicarbonate 28 mmol/L 10/2015 Unknown COMPREHENSIVE METABOLIC 49205 AGAP 8 mmol/L 2015 Unknown THYROID STIMULATING HORMONE 48133 TSH 1.545 uIU/mL 05/19/2016 Unknown GFR CALC 5457063 GFR Afr Amr >60 mL/min 05/19/2016 Unknow n GFR CALC 5337332 GFR Non Afr Amr >60 mL/min 05/19/2016 Un known VITAMIN B 12 28787 VITAMIN B12 298 pg/mL 05/19/2016 Unkn own COMPLETE BLOOD COUNT [id number] WBC 5.2 10e9/L 05/19/20 16 Unknown COMPLETE BLOOD COUNT [id number] RBC 4.34 10e12/L 2015 Unknown COMPLETE BLOOD COUNT 4260807 HEMOGLOBIN 12.9 g/dL 05/19/20 16 Unknown COMPLETE BLOOD COUNT 8996459 HEMATOCRIT 38.9 % 05/19/20 16 Unknown COMPLETE BLOOD COUNT 9181419 MCV 89.6 fL 6 Unknown COMPLETE BLOOD COUNT 5160140 MCH 29.7 pg 6 Unknown COMPLETE BLOOD COUNT 9638566 MCHC 33.2 g/dL 6 Unknown COMPLETE BLOOD COUNT [id number] PLATELET COUNT 200 10e9/L 10/2015 Unknown COMPLETE BLOOD COUNT 7828849 Mean Plt Volume 10.1 fL 10/2015 Unknown COMPLETE BLOOD COUNT 3988074 Neut Auto 45.4 % 6 Unknown COMPLETE BLOOD COUNT 8747711 Lymph Auto 35.6 % 05/19/20 16 Unknown COMPLETE BLOOD COUNT 8678847 [place] Auto 11.9 % 6 Unknown COMPLETE BLOOD COUNT 2814735 Eos Auto 6.7 % 6 Unknown COMPLETE BLOOD COUNT 9142345 RDW 12.7 % 6 Unknown COMPLETE BLOOD COUNT 9502394 Baso Auto 0.4 % 6 Unknown COMPLETE BLOOD COUNT 0507266 Neutrophil Abs 2.36 10e9/L Unknown COMPLETE BLOOD COUNT 2701339 Lymphocyte Abs 1.85 10e9/L Unknown COMPLETE BLOOD COUNT 5981017 Monocyte Abs 0.62 10e9/L 10/2015 Unknown COMPLETE BLOOD COUNT 7136078 Eosinophil Abs 0.35 10e9/L Unknown COMPLETE BLOOD COUNT [id number] Basophil Abs 0.02 10e9/L 10/2015 Unknown COMPLETE BLOOD COUNT 9590333 RDW-SD 40.6 fL 6 Unknown LIPID GROUP 36693 Cholesterol 197 mg/dL 05/19/2016 Unkno wn LIPID GROUP 73838 Triglyceride 92 mg/dL 05/19/2016 Unkn own LIPID GROUP 86207 HDL CHOLESTEROL 58 mg/dL 05/19/2016 U nknown LIPID GROUP 60403 Chol/HDL Ratio 3.40 ratio 05/19/2016 U nknown LIPID GROUP 31518 NON-HDL Chol 139 mg/dL 05/19/2016 Unkn own LIPID GROUP 48946 LDL Cholesterol 121 mg/dL 05/19/2016 U nknown FREE T4 69144 T4 Free 1.19 ng/dL 05/19/2016 Unknown COMPREHENSIVE METABOLIC 48336 AST 19 U/L 2014 Unknown COMPREHENSIVE METABOLIC 15983 ALT 10 IU/L 2014 Unknown COMPREHENSIVE METABOLIC 36953 BUN 20 MG/DL 2014 Unknown COMPREHENSIVE METABOLIC 09298 ALBUMIN 4.4 GM/DL 2014 Unknown COMPREHENSIVE METABOLIC 49164 CHLORIDE 104 MMOL/L 04/05 Unknown COMPREHENSIVE METABOLIC 46584 BILI TOT 2.2 MG/DL 2014 Unknown COMPREHENSIVE METABOLIC 95423 ALK PHOS 55 U/L 2014 Unknown COMPREHENSIVE METABOLIC 31135 SODIUM 138 MMOL/L 04/05 Unknown COMPREHENSIVE METABOLIC 98864 CREATININE 1.04 MG/DL 03/18 Unknown COMPREHENSIVE METABOLIC 29922 CALCIUM 9.3 MG/DL 2014 Unknown COMPREHENSIVE METABOLIC 95065 POTASSIUM 4.5 MMOL/L 04/05 Unknown COMPREHENSIVE METABOLIC 90591 PROT TOT 6.7 GM/DL 2014 Unknown COMPREHENSIVE METABOLIC 05616 Glucose 77 MG/DL 2014 Unknown COMPREHENSIVE METABOLIC 37480 BICARB 25 MMOL/L 2014 Unknown COMPREHENSIVE METABOLIC 83742 ANION GAP 9 MEQ/L 2014 Unknown GFR CALC 7768612 GFR AA >60 ML/MIN 04/05/2015 Unknown GFR CALC 9050132 GFR NON-AA >60 ML/MIN 04/05/2015 Unknown LIPID GROUP 51788 HDL TEST 60 MG/DL 04/05/2015 Unknown LIPID GROUP 16286 TRIG 70 MG/DL 04/05/2015 Unknown LIPID GROUP 49812 TEST LDL 137 MG/DL 04/05/2015 Unknown LIPID GROUP 15576 CHOL 211 MG/DL 04/05/2015 Unknown LIPID GROUP 86040 RCHOL/HDL 3.52 RATIO 04/05/2015 Unknow n LIPID GROUP 78233 NON-HDL CH 151 MG/DL 04/05/2015 Unknow n COMPLETE BLOOD COUNT 3382356 WBC 5.3 10e9/L 04/05/20 15 Unknown COMPLETE BLOOD COUNT 3547126 RBC 4.42 10e12/L 2014 Unknown COMPLETE BLOOD COUNT 3185834 HGB 13.4 g/dL 5 Unknown COMPLETE BLOOD COUNT 1126313 HCT DET 39.6 % 5 Unknown COMPLETE BLOOD COUNT 1051407 MCV 89.6 fL 5 Unknown COMPLETE BLOOD COUNT 5856591 MCH 30.3 pg 5 Unknown COMPLETE BLOOD COUNT 0804592 MCHC 33.8 g/dL 5 Unknown COMPLETE BLOOD COUNT 0662704 PLT 201 10e9/L 04/05/20 15 Unknown COMPLETE BLOOD COUNT 2835282 MPV 10.3 fL 5 Unknown COMPLETE BLOOD COUNT 6137362 LUPE % 56.4 % 5 Unknown COMPLETE BLOOD COUNT 4992822 LY % 24.8 % 5 Unknown COMPLETE BLOOD COUNT 4072453 MON % 12.8 % 5 Unknown COMPLETE BLOOD COUNT 9939081 EOS % 5.4 % 5 Unknown COMPLETE BLOOD COUNT [id number] BASO % 0.6 % 5 Unknown COMPLETE BLOOD COUNT 5089959 RDW 13.2 % 5 Unknown COMPLETE BLOOD COUNT 2459150 ABS LUPE 2.99 10e9/L 015 Unknown COMPLETE BLOOD COUNT 5570843 ABS LYMPH 1.31 10e9/L 015 Unknown COMPLETE BLOOD COUNT 9327504 ABS MONO 0.68 10e9/L 015 Unknown COMPLETE BLOOD COUNT 5970879 ABS EOS 0.29 10e9/L 015 Unknown COMPLETE BLOOD COUNT 5088177 ABS BASO 0.03 10e9/L 015 Unknown COMPLETE BLOOD COUNT 7509295 RDW-SD 42.3 fL 5 Unknown LIPID GROUP 74092 HDL TEST 51 MG/DL 07/19/2012 Unknown LIPID GROUP 96528 TRIG 129 MG/DL 07/19/2012 Unknown LIPID GROUP 34148 TEST LDL 98 MG/DL 07/19/2012 Unknown LIPID GROUP 40558 CHOL 175 MG/DL 07/19/2012 Unknown LIPID GROUP 27810 RCHOL/HDL 3.43 RATIO 07/19/2012 Unknow n COMPREHENSIVE METABOLIC 32147 AST 18 U/L 2011 Unknown COMPREHENSIVE METABOLIC 77968 ALT 12 IU/L 2011 Unknown COMPREHENSIVE METABOLIC 95077 BUN 10 MG/DL 2011 Unknown COMPREHENSIVE METABOLIC 57987 ALBUMIN 4.1 GM/DL 2011 Unknown COMPREHENSIVE METABOLIC 57791 CHLORIDE 103 MMOL/L 07/19 Unknown COMPREHENSIVE METABOLIC 69755 BILI TOT 0.9 MG/DL 2011 Unknown COMPREHENSIVE METABOLIC 49124 ALK PHOS 62 U/L 2011 Unknown COMPREHENSIVE METABOLIC 03423 SODIUM 138 MMOL/L 07/19 Unknown COMPREHENSIVE METABOLIC 36799 CREATININE 1.08 MG/DL 10/2011 Unknown COMPREHENSIVE METABOLIC 25720 CALCIUM 9.1 MG/DL 2011 Unknown COMPREHENSIVE METABOLIC 70975 POTASSIUM 4.2 MMOL/L 07/19 Unknown COMPREHENSIVE METABOLIC 99716 PROT TOT 6.7 GM/DL 2011 Unknown COMPREHENSIVE METABOLIC 52265 Glucose 101 MG/DL 2011 Unknown COMPREHENSIVE METABOLIC 36863 BICARB 27 MMOL/L 2011 Unknown COMPREHENSIVE METABOLIC 73964 ANION GAP 8 MEQ/L 2011 Unknown GFR CALC [id number] GFR AA >60 ML/MIN 07/19/2012 Unknown GFR CALC [id number] GFR NON-AA >60 ML/MIN 07/19/2012 Unknown Procedures Procedure Codes Date ROUTINE VENIPUNCTURE CPT-4: 55659 09/30/2019 COMPREHEN METABOLIC PANEL CPT-4: 92215 09/30/2019 COMPLETE CBC W/AUTO DIFF WBC CPT-4: 67494 09/30/2019 ASSAY OF PSA TOTAL CPT-4: 83021 09/30/2019 ASSAY THYROID STIM HORMONE CPT-4: 77823 09/30/2019 LIPID PANEL CPT-4: 75348 09/30/2019 ROUTINE VENIPUNCTURE CPT-4: 70910 09/24/2019 COMPLETE CBC W/AUTO DIFF WBC CPT-4: 33603 09/24/2019 COMPREHEN METABOLIC PANEL CPT-4: 79120 09/24/2019 LIPID PANEL CPT-4: 48191 09/24/2019 ASSAY THYROID STIM HORMONE CPT-4: 98396 09/24/2019 THER/PROPH/DIAG INJ SC/IM CPT-4: 13582 01/13/2019 TRIAMCINOLONE ACET INJ NOS CPT-4: J3301 01/13/2019 DEXAMETHASONE SODIUM PHOS CPT-4: J1100 01/13/2019 ROUTINE VENIPUNCTURE CPT-4: 01044 09/04/2018 COMPREHEN METABOLIC PANEL CPT-4: 49190 09/04/2018 COMPLETE CBC W/AUTO DIFF WBC CPT-4: 89750 09/04/2018 LIPID PANEL CPT-4: 49958 09/04/2018 ASSAY OF PSA TOTAL CPT-4: 46755 09/04/2018 ASSAY THYROID STIM HORMONE CPT-4: 87817 09/04/2018 URINALYSIS NONAUTO W/O SCOPE CPT-4: 06481 05/15/2018 ROUTINE VENIPUNCTURE CPT-4: 48503 11/16/2017 A FRT/VG P CPT-4: 5653387 11/16/2017 A FOOD C P CPT-4: 2517675 11/16/2017 A NUTS PNL CPT-4: 9525821 11/16/2017 THER/PROPH/DIAG INJ SC/IM CPT-4: 57332 11/06/2017 TRIAMCINOLONE ACET INJ NOS CPT-4: J3301 11/06/2017 DEXAMETHASONE SODIUM PHOS CPT-4: J1100 11/06/2017 ROUTINE VENIPUNCTURE CPT-4: 57934 09/03/2017 ASSAY OF FREE THYROXINE CPT-4: 47646 09/03/2017 ASSAY THYROID STIM HORMONE CPT-4: 88861 09/03/2017 ASSAY TRIIODOTHYRONINE (T3) CPT-4: 96958 09/03/2017 ROUTINE VENIPUNCTURE CPT-4: 37711 07/31/2017 COMPREHEN METABOLIC PANEL CPT-4: 57148 07/31/2017 COMPLETE CBC W/AUTO DIFF WBC CPT-4: 29774 07/31/2017 LIPID PANEL CPT-4: 92981 07/31/2017 FLU VACC PRSV FREE INC ANTIG 65 AND OLDER CPT-4: 29434 07/04/2017 ADMIN INFLUENZA VIRUS VAC CPT-4: G0008 07/04/2017 ROUTINE VENIPUNCTURE CPT-4: 04485 02/26/2017 ASSAY THYROID STIM HORMONE CPT-4: 04839 02/26/2017 COMPREHEN METABOLIC PANEL CPT-4: 52184 02/26/2017 COMPLETE CBC W/AUTO DIFF WBC CPT-4: 96870 02/26/2017 LIPID PANEL CPT-4: 24417 02/26/2017 ASSAY OF PSA TOTAL CPT-4: 34651 02/26/2017 FLUZONE, 5ML (Medicare) CPT-4: Q2038 06/28/2016 ADMIN INFLUENZA VIRUS VAC CPT-4: G0008 06/28/2016 ROUTINE VENIPUNCTURE CPT-4: 65123 05/19/2016 ASSAY OF FREE THYROXINE CPT-4: 07734 05/19/2016 ASSAY THYROID STIM HORMONE CPT-4: 92996 05/19/2016 COMPREHEN METABOLIC PANEL CPT-4: 03125 05/19/2016 COMPLETE CBC W/AUTO DIFF WBC CPT-4: 60927 05/19/2016 LIPID PANEL CPT-4: 76988 05/19/2016 VITAMIN B-12 CPT-4: 63066 05/19/2016 PPPS, initial visit CPT-4: G0438 05/10/2016 ROUTINE VENIPUNCTURE CPT-4: 83381 04/05/2015 ASSAY THYROID STIM HORMONE CPT-4: 68240 04/05/2015 COMPREHEN METABOLIC PANEL CPT-4: 79666 04/05/2015 COMPLETE CBC W/AUTO DIFF WBC CPT-4: 79656 04/05/2015 LIPID PANEL CPT-4: 81323 04/05/2015 ASSAY OF PSA TOTAL CPT-4: 19804 04/05/2015 ROUTINE VENIPUNCTURE CPT-4: 01238 07/19/2012 COMPREHEN METABOLIC PANEL CPT-4: 66049 07/19/2012 LIPID PANEL CPT-4: 07/19/2012 ELECTROCARDIOGRAM COMPLETE CPT-4: 08797 03/22/2012 Vital Signs Date Vital 09/24/2019 Blood Pressure 1: 125/72 Code: 8480-6 BMI: 19.8 Code: 08316-3 Heart Rate 1: 88 bpm Height: 5'11" [...] 1: 102/60 Code: 8480-6 BMI: 19.1 Code: 75222-5 Heart Rate 1: 82 bpm Height: 5'11" Respiratory Rate: 22 bpm SpO2: 97% Tempera ture: 36.4 (C) / 97.6 (F) Weight: 137 lbs 04/25/2018 Blood Pressure 1: 118/64 Code: 8480-6 BMI: 19.2 Code: 90400-9 Heart Rate 1: 98 bpm Height: 5'11" Respiratory Rate: 20 bpm SpO2: 99% Tempera ture: 36.4 (C) / 97.6 (F) Weight: 138 lbs 11/06/2017 Blood Pressure 1: 108/68 Code: 8480-6 BMI: 18.5 Code: 96640-7 Heart Rate 1: 68 bpm Height: 5'11" Respiratory Rate: 20 bpm SpO2: 96% Tempera ture: 36.8 (C) / 98.2 (F) Weight: 133 lbs 09/03/2017 Blood Pressure 1: 122/64 Code: 8480-6 BMI: 17.6 Code: 79039-4 Heart Rate 1: 90 bpm Height: 5'11" Respiratory Rate: 20 bpm SpO2: 98% Tempera ture: 36.4 (C) / 97.6 (F) Weight: 126 lbs 08/21/2017 Blood Pressure 1: 114/80 Code: 8480-6 BMI: 17.9 Code: 84591-8 Heart Rate 1: 80 bpm Height: 5'11" Respiratory Rate: 20 bpm SpO2: 95% Tempera ture: 36.6 (C) / 97.9 (F) Weight: 128 lbs 02/13/2017 Blood Pressure 1: 122/60 Code: 8480-6 BMI: 18.5 Code: 56603-5 Heart Rate 1: 76 bpm Height: 5'11" Respiratory Rate: 20 bpm SpO2: 96% Tempera ture: 36.9 (C) / 98.4 (F) Weight: 133 lbs 11/23/2016 Blood Pressure 1: 126/70 Code: 8480-6 BMI: 18.5 Code: 07601-4 Heart Rate 1: 100 bpm Height: 5'11" Respiratory Rate: 20 bpm SpO2: 96% Tempera ture: 37.1 (C) / 98.8 (F) Weight: 133 lbs 05/23/2016 Blood Pressure 1: 128/82 Code: 8480-6 BMI: 18.5 Code: 48394-5 Heart Rate 1: 88 bpm Height: 5'11" Respiratory Rate: 20 bpm Temperature: 36 .7 (C) / 98.0 (F) Weight: 133 lbs 05/10/2016 Blood Pressure 1: 146/70 Code: 8480-6 BMI: 18.5 Code: 45534-1 Heart Rate 1: 84 bpm Height: 5'11" Respiratory Rate: 20 bpm Temperature: 36 .7 (C) / 98.1 (F) Weight: 133 lbs 04/01/2015 Blood Pressure 1: 102/60 Code: 8480-6 BMI: 18.5 Code: 47062-3 Heart Rate 1: 64 bpm Height: 5'11" Respiratory Rate: 20 bpm Temperature: 36 .8 (C) / 98.2 (F) Weight: 133 lbs 01/13/2014 Blood Pressure 1: 124/78 Code: 8480-6 BMI: 19.8 Code: 84527-4 Heart Rate 1: 76 bpm Height: 5'11" Respiratory Rate: 20 bpm Temperature: 36 .8 (C) / 98.2 (F) Weight: 142 lbs 04/03/2012 Blood Pressure 1: 106/76 Code: 8480-6 BMI: 20.9 Code: 39468-7 Heart Rate 1: 84 bpm Height: 5'11" Respiratory Rate: 20 bpm Temperature: 36 .7 (C) / 98.0 (F) Weight: 150 lbs 12/20/2011 Blood Pressure 1: 116/60 Code: 8480-6 BMI: 20.1 Code: 75951-7 Heart Rate 1: 80 bpm Height: 5'11" Respiratory Rate: 20 bpm Temperature: 36 .4 (C) / 97.6 (F) Weight: 144 lbs 10/24/2011 Blood Pressure 1: 132/74 Code: 8480-6 BMI: 19.7 Code: 18691-7 Heart Rate 1: 96 bpm Height: 5'11" [...] 04/05/2015 follow up 04/01/2015 follow up 01/13/2014 [facility] November 2012 lab draw 07/19/2012 follow up 04/03/2012 S/P stent placement in LAD, changed effient to plavix hip pain 12/20/2011 dyskinesia or tremor 10/24/2011 follow up 03/13/2011 started on effient, zocor, and atenolol follow up 02/20/2011 [facility]Dr Christian rojas follow up 02/23/2010 [facility], appt with Dr Bajwa 03/22/10 insomnia 01/12/2010 problems falling and staying asleep, takes nortriptyline Encounters Encounter Performer Location Codes Date () NURSE/OUTPATIENT VISIT EST Diagnosis: Essential (primary) hypertension[ICD10: I10] Diagnosis: Mixed hyperlipidemia[ICD10: E78.2] Diagnosis: Encounter for screening for malignant neoplasm of prostate[ICD10: Z12.5] Vonnie COLMENARES ShaserKim ShareHowsRAHEEMObject Matrix CPT-4: 88995 09/30/2019 ([id number]) OFFICE/OUTPATIENT VISIT EST Diagnosis: Encounter for therapeutic drug level monitoring[ICD10: Z51.81] Diagnosis: Essential tremor[ICD10: G25.0] Verna Ramirez VONNIE Alvarez ShareHowsRAHEEMObject Matrix CPT-4: 15022 09/24/2019 ([id number]) OFFICE/OUTPATIENT VISIT EST Diagnosis: Noninfective gastroenteritis and colitis, unspecified[ICD10: K52.9] Diagnosis: Hemorrhage of anus and rectum[ICD10: K62.5] Vonnie Loza ShareHowsIRON [employer] CPT-4: 16228 05/26/2019 ([id number]) OFFICE/OUTPATIENT VISIT EST Diagnosis: Other intervertebral disc degeneration, 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] Diagnosis: Other forms of dyspnea[ICD10: R06.09] Vonnie MATHEWS CamGSM [facility] CPT-4: 10108 03/17/2019 OFFICE/OUTPATIENT VISIT EST Diagnosis: Other intervertebral disc degeneration, 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] Diagnosis: Other symptoms and signs involving the musculoskeletal system[ICD10: R29.898] Vonnie MATHEWS CamGSM [facility] CPT-4: 33068 02/18/2019 ([id number]) OFFICE/OUTPATIENT VISIT EST Diagnosis: Other allergic rhinitis[ICD10: J30.89] Akilah MTAHEWS CamGSM [facility] CPT-4: 68175 01/13/2019 ([id number]) NURSE/OUTPATIENT VISIT EST Diagnosis: Mixed hyperlipidemia[ICD10: E78.2] Diagnosis: Essential (primary) hypertension[ICD10: I10] Diagnosis: Encounter for screening for malignant neoplasm of prostate[ICD10: Z12.5] Diagnosis: Encounter for general adult medical examination with abnormal findings[ICD10: Z00.01] Diagnosis: Benign prostatic hyperplasia without lower urinary tract symptoms[ICD10: N40.0] Vonnie MATHEWS [facility] CPT-4: 59243 09/04/2018 ([id number]) OFFICE/OUTPATIENT VISIT EST Diagnosis: Otorrhea, left ear[ICD10: H92.12] Diagnosis: Impacted cerumen, right ear[ICD10: H61.21] Verna MATHEWS [facility] CPT-4: 40301 09/03/2018 ([id number]) OFFICE/OUTPATIENT VISIT EST Diagnosis: Other intervertebral disc degeneration, 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] Diagnosis: Primary insomnia[ICD10: F51.01] Diagnosis: Essential tremor[ICD10: G25.0] Vonnie MATHEWS [facility] CPT-4: 87084 08/26/2018 ([id number]) OFFICE/OUTPATIENT VISIT EST Diagnosis: Pelvic and perineal pain[ICD10: R10.2] Verna MATHEWS [employer] CPT-4: 02658 05/15/2018 ([id number]) OFFICE/OUTPATIENT VISIT EST Diagnosis: Encounter for therapeutic drug level monitoring[ICD10: Z51.81] Diagnosis: Acute sinusitis, unspecified[ICD10: J01.90] Diagnosis: Other intervertebral disc degeneration, 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] Diagnosis: Essential tremor[ICD10: G25.0] Diagnosis: Raynaud's syndrome without gangrene[ICD10: I73.00] Verna ASCENCIOLINE Denia MATHEWS [employer] CPT-4: 98901 04/25/2018 ([id number]) OFFICE/OUTPATIENT VISIT EST Diagnosis: Idiopathic urticaria[ICD10: L50.1] Diagnosis: Other urticaria[ICD10: L50.8] Vonnie COLMENARES GilbertoKim COLBY [facility] CPT-4: 98071 11/16/2017 ([id number]) OFFICE/OUTPATIENT VISIT EST Diagnosis: Idiopathic urticaria[ICD10: L50.1] Diagnosis: Other urticaria[ICD10: L50.8] Diagnosis: Other forms of dyspnea[ICD10: R06.09] Vonnie RODGERS GilbertoKim COLBYObject Matrix CPT-4: 87308 11/06/2017 ([id number]) OFFICE/OUTPATIENT VISIT EST Diagnosis: Dyspnea, unspecified[ICD10: R06.00] Diagnosis: Abnormal weight loss[ICD10: R63.4] Vonnie LUCIA ShaserKim MATHEWS [employer] CPT-4: 72806 09/03/2017 ([id number]) OFFICE/OUTPATIENT VISIT EST 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] Diagnosis: Mixed hyperlipidemia[ICD10: E78.2] Diagnosis: Essential tremor[ICD10: G25.0] Diagnosis: Essential (primary) hypertension[ICD10: I10] Diagnosis: Abnormal weight loss[ICD10: R63.4] Vonnie LUCIA Denia MATHEWS [employer] CPT-4: 10090 08/21/2017 ([id number]) OFFICE/OUTPATIENT VISIT EST Diagnosis: Mixed hyperlipidemia[ICD10: E78.2] Diagnosis: Essential (primary) hypertension[ICD10: I10] 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] Diagnosis: Anemia, unspecified[ICD10: D64.9] Vonnie MATHEWS DO [facility] CPT-4: 94187 07/31/2017 ([id number]) OFFICE/OUTPATIENT VISIT EST Diagnosis: FLU VACCINE[ICD10: Z23] Vonnie BOWMAN ER DO [facility] CPT-4: 63359 07/04/2017 ([id number]) OFFICE/OUTPATIENT VISIT EST Diagnosis: Mixed hyperlipidemia[ICD10: E78.2] Diagnosis: Essential tremor[ICD10: G25.0] 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] Diagnosis: Essential (primary) hypertension[ICD10: I10] Diagnosis: Supraventricular tachycardia[ICD10: I47.1] Diagnosis: Other fatigue[ICD10: R53.83] Diagnosis: Encounter for screening for malignant neoplasm of prostate[ICD10: Z12.5] Vonnie MATHEWS DO [facility] CPT-4: 86379 02/26/2017 ([id number]) OFFICE/OUTPATIENT VISIT EST Diagnosis: Essential tremor[ICD10: G25.0] Vonnie MATHEWS DO [facility] CPT-4: 83955 02/13/2017 ([id number]) OFFICE/OUTPATIENT VISIT EST Diagnosis: Essential tremor[ICD10: G25.0] Diagnosis: Other intervertebral disc degeneration, 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] Vonnie MATHEWS DO [facility] CPT-4: 12840 11/23/2016 ([id number]) OFFICE/OUTPATIENT VISIT EST Diagnosis: FLU VACCINE[ICD10: Z23] Vonnie BOWMAN ER DO [facility] CPT-4: 62328 06/28/2016 OFFICE/OUTPATIENT VISIT EST Diagnosis: Open bite of right hand, initial encounter[ICD10: S61.451A] Vonnie BOWMANER CamGSM [facility] CPT-4: 42343 05/23/2016 ([id number]) OFFICE/OUTPATIENT VISIT EST Diagnosis: Encounter for general adult medical examination with abnormal findings[ICD10: Z00.01] Diagnosis: Mixed hyperlipidemia[ICD10: E78.2] Diagnosis: Essential tremor[ICD10: G25.0] 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] Vonnie Romuloiron LAIVONNIEOMAR BOWMAN [facility] CPT-4: 94619 05/19/2016 ([id number]) OFFICE/OUTPATIENT VISIT EST Diagnosis: HYPERLIPIDEMIA NEC/NOS[ICD9: 272.4] Diagnosis: CAD[ICD9: 414.00] Diagnosis: TACHYCARDIA[ICD9: 785.0] Diagnosis: HYPERTENSION[ICD9: 401.9] Diagnosis: Routine medical exam[ICD9: V70.0] Vonnie Galarza Denia SCHULTZAmba Defence [facility] CPT-4: 16733 04/05/2015 ([id number]) OFFICE/OUTPATIENT VISIT EST Diagnosis: HYPERTENSION[ICD9: 401.9] Diagnosis: HYPERLIPIDEMIA NEC/NOS[ICD9: 272.4] Diagnosis: CAD[ICD9: 414.00] Diagnosis: LUMB/LUMBOSAC DISC DEGEN[ICD9: 722.52] Vonnie GASPAR Denia BOWMAN [facility] CPT-4: 82243 04/01/2015 ([id number]) OFFICE/OUTPATIENT VISIT EST Diagnosis: CHEST PAIN NOS[ICD9: 786.50] Diagnosis: PAIN IN THORACIC SPINE[ICD9: 724.1] Diagnosis: HYPERTENSION[ICD9: 401.9] Diagnosis: GERD[ICD9: 530.81] Vonnie COLMENARES Denia BOWMAN [facility] CPT-4: 32258 01/13/2014 ([id number]) OFFICE/OUTPATIENT VISIT EST Diagnosis: CAD[ICD9: 414.00] Diagnosis: HYPERLIPIDEMIA NEC/NOS[ICD9: 272.4] Vonnie ANNA Denia BOWMAN [facility] CPT-4: 67430 07/19/2012 ([id number]) OFFICE/OUTPATIENT VISIT EST Diagnosis: CAD[ICD9: 414.00] Diagnosis: INSOMNIA NOS[ICD9: 780.52] Vonnie Macias. OR YULISA DO [facility] CPT-4: 66426 04/03/2012 ([id number]) OFFICE/OUTPATIENT VISIT EST Diagnosis: CHEST PAIN NOS[ICD9: 786.50] Diagnosis: CAD[ICD9: 414.00] Vonnie Loza [employer] CPT-4: 49380 03/22/2012 ([id number]) OFFICE/OUTPATIENT VISIT EST Diagnosis: PROSTATITIS[ICD9: 601.9] Diagnosis: TREMOR NEC[ICD9: 333.1] Vonnie SCHULTZND ER DO [facility] CPT-4: 04406 12/20/2011 OFFICE/OUTPATIENT VISIT EST Diagnosis: TREMOR NEC[ICD9: 333.1] Diagnosis: TACHYCARDIA[ICD9: 785.0] Diagnosis: HYPERTENSION[ICD9: 401.9] Vonnie SCHULTZ NDER DO [facility] CPT-4: 85668 10/24/2011 OFFICE/OUTPATIENT VISIT EST Vonnie SCHULTZ NDER DO [facility] CPT- 4: 67620 03/13/2011 ([id number]) OFFICE/OUTPATIENT VISIT EST Vonnie GASPAR SKim ORENDER DO [facility] CPT-4: 15308 02/20/2011 ([id number]) OFFICE/OUTPATIENT VISIT, EST Vonnie NELSON S. ORENDER DO [facility] CPT-4: 13502 02/23/2010 ([id number]) OFFICE/OUTPATIENT VISIT, EST Vonnie NELSON S. ORENDER DO [facility] CPT-4: 98346 01/12/2010 Plan of Care Planned Activity Notes Codes Status Date Appointment: Vonnie Mathews [facility]Ptel[phone] [id number] [facility] 09/30/2019 Appointment: Verna Ramirez [address] [place], [place] [id number] RESCHEDULED 09/25/2019 Visit Diagnosis Plan: Encounter for therapeutic drug l evel monitoring Discussion: UDS and contract completed today. ICD-9 : V58.83 ICD-10 : Z51.81 09/24/2019 Visit Diagnosis Plan: Essential tremor Discussion: sta ble on clonazepam. educated patient about purchasing a large, heavy pen that will allow him to improve his writing. instructed him that pens can be purchased on [employer].. ICD-9 : 333.1 ICD-10 : G25.0 09/24/2019 Appointment: Verna Ramirez [address] [id number] MEDICATION REVIEW 09/24/2019 Visit Diagnosis Plan: Hemorrhage of anus and rectum Di scussion: Update colonoscopy ICD-9 : 569.3 ICD-10 : K62.5 05/26/2019 Visit Diagnosis Plan: Noninfective gastroenteritis and colitis, unspecified Discussion: Flagyl [place] diet Update colonoscopy ICD-9 : 558.9 ICD-10 : K52.9 05/26/2019 Appointment: Vonnie Mathews WPtel[facility] [phone] [facility] [facility] record request faxed 05/23; LM with medical records 05/26/19 Hospital Follow Up 05/26/2019 Care Plan: Referral Order SNOMED-CT : 30 [id number] Pending 05/26/2019 Visit Diagnosis Plan: Other intervertebral disc degene ration, lumbar region Discussion: Increase lyrica to 150mg po q HS Continue stretches from PT [facility] Fwup after that appointment ICD-9 : 722.52 ICD-10 : M51.36 03/17/2019 Appointment: Vonnie Mathews WPtel: [facility] [facility] FOLLOW UP 03/17/2019 Visit [...] : M51.36 02/18/2019 Appointment: Vonnie Mathews WPtel: [address] [place] [address] FOLLOW UP 02/18/2019 Appointment: Vonnie Mathews WPtel: [address] [place] [address] US CANCELED 02/18/2019 Visit Diagnosis Plan: Other [...] J30.89 01/13/2019 Appointment: Akilah Lopez [address] Due for annual wellness ACUTE ILLNESS 01/14/20 Appointment: Vonnie Mathews WPtel: [address] [place] [address] US LAB 09/04/2018 Visit Diagnosis Plan: Otorrhea, [...] : H61.21 09/03/2018 Appointment: Verna Ramirez [address] ACUTE ILLNESS 09/03/2018 Visit Diagnosis Plan: [...] Appointment: Vonnie Mathews WPtel: [phone] [id number] US FOLLOW UP 08/26/2018 Visit Diagnosis Plan: [...] ICD-10 : R10.2 05/15/2018 Appointment: Verna Ramirez [address] [place], [place] [id number] ACUTE ILLNESS 05/15/2018 Patient Education: Patient Medication Summary Completed 05/15/2018 Care Plan: US EXAM PELVIC COMPLETE scrotal LOINC : 24578-4 Pending 05/15/2018 Visit Diagnosis Plan: Other intervertebral [...] ICD-10 : J01.90 04/25/2018 Appointment: Verna Ramirez [address] [place] [address] MEDICATION REVIEW 04/25/2018 Patient Education: Patient Medication Summary Completed 04/25/2018 Appointment: Vonnie Mathews WPtel: [address] [place] [address] 11/16/2017 Patient Education: Patient Medication Summary Completed [...] : L50.1 11/06/2017 Appointment: Vonnie Mathews WPtel: [address] [place] [address] FOLLOW UP 11/06/2017 Patient Education: Patient Medication [...] : R63.4 09/03/2017 Appointment: Vonnie Mathews WPtel: [address] [place], [place] [phone] US FOLLOW UP 09/03/2017 Patient Education: Patient Medication Summary Completed 09/03/2017 Visit Diagnosis Plan: Mixed hyperlipidemia Discussion: Lab discussed ICD-9 : 272.4 ICD-10 : E78.2 08/21/2017 Visit Diagnosis Plan: Essential tremor Discussion: Sta ble on Primidone ICD-9 : 333.1 ICD-10 : G25.0 08/21/2017 Visit Diagnosis Plan: Atherosclerotic he art disease of [place] coronary artery without angina pectoris Discussion: Sees Cardiology in 2 days To ER if CP returns before ICD-9 : 414.00 ICD-10 : I25.10 08/21/2017 Visit Diagnosis Plan: Abnormal weight loss Discussion: Start daily protein shake or smoothie ICD-9 : 783.21 ICD-10 : R63.4 08/21/2017 Visit Diagnosis Plan: Essential (primary) hypertension Discussion: Stable ICD-9 : 401.9 ICD-10 : I10 08/21/2017 Appointment: Vonnie Mathewstel: [address] [place] [address] FOLLOW UP 08/21/2017 Patient Education: Patient Medication Summary Completed 08/21/2017 Appointment: Vonnie Mathews WPtel: [address] [place] [address] LAB 07/31/2017 Patient Education: Patient Medication Summary Completed 07/31/2017 Appointment: Vonnie Mathews WPtel: [address] [place], [place] [phone] US INJECTION 07/04/2017 Patient Education: Patient Medication Summary Completed 07/04/2017 Appointment: Vonnie Mathews WPtel: [address] [place], [place] [phone] LAB 02/26/2017 Patient Education: Patient Medication Summary Completed 02/26/2017 Visit Diagnosis Plan: Essential tremor Discussion: Con tinue clonazepam at 1mg q AM and primidone 50mg q HS Follow Up: 3 months ICD-9 : 333.1 ICD-10 : G25.0 02/13/2017 Appointment: Vonnie Mathews WPtel: [phone] [facility] 02/08 confirmed~sl FOLLOW UP 02/13/2017 Patient Education: Patient Medication Summary Completed 02/13/2017 Appointment: Vonnie Mathews WPtel: [phone] [place], [place] [phone] US RESCHEDULED 01/23/2017 Visit Diagnosis Plan: Other intervertebral disc degene ration, lumbar region Discussion: DC oxycodone Tramadol 50mg 1-2 po TID prn pain Follow Up: 2 months ICD-9 : 722.52 ICD-10 : M51.36 11/23/2016 Visit Diagnosis Plan: Essential tremor Discussion: Inc rease clonazepam to 1mg po BID Discussed sinemet ICD-9 : 333.1 ICD-10 : G25.0 11/23/2016 Appointment: Vonnie Mathews WPtel: [address] [place] [address] 11/22 confirmed~sl MEDICATION REVIEW 11/23/2016 Patient Education: Patient Medication Summary Completed 11/23/2016 Patient Education: [facility] - [employer] - Clonazepam - 18-64 - Dynamic Portal ID Completed 11/23/2016 Appointment: Vonnie Mathews WPtel: [address] [place], [place] [phone] [place] INJECTION 06/28/2016 Patient Education: Patient Medication Summary Completed 06/28/2016 Referral: Fernando Day WPtel: [address] [facility] Girish [id number] [place] [id number] per Maribeth, the patient is [...] if worsening 05/23/2016 Appointment: Vonnie Mathews WPtel: [address] [place], [place] [phone] ER Follow UP 05/23/2016 Patient Education: Patient Medication Summary Completed 05/23/2016 Appointment: Vonnie Mathews WPtel: [address] [place], [place] [phone] [place] LAB 05/19/2016 Patient Education: Patient Medication Summary Completed 05/19/2016 Visit Plan: Change coreg to 3.125mg BID Trial of low dose clonazepam 0.5mg BID for tremors Fwup with Dr. Ramsey as scheduled Return for fasting lab--CBC, CMP, TSH, free T4, Lipids, PSA, B12 Proceed with Colonoscopy 05/10/2016 Appointment: Vonnie Mathews WPtel: [address] [place], [place] [phone] 05/09 confirmed~ Annual Well Visit 05/10/2016 Patient Education: Patient Medication Summary Completed 05/10/2016 Care Plan: Referral Order SNOMED-CT : 30 [id number] Pending 05/10/2016 Appointment: Vonnie Mathews WPtel: [address] [place] [address] [place] Rescheduled for 05/10/16 at 2PM~lb RESCHEDULED 04/26/2016 Referral: [facility] [id number] Referral Initiated 04/29/2015 Appointment: Vonnie Mathews WPtel: [address] [place], [place] [phone] [place] LAB 04/05/2015 Patient Education: Patient Medication Summary Completed 04/05/2015 Visit Plan: Return in AM for fasting lab --CMP, lipids, CBC, TSH, PSA Change hydrocodone to oxycodone 7.5/325mg 1-2 po TID Schedule with cardiology Needs colonoscopy once cardiology evaluation complete Will need to restart chol meds after lab Recheck 1mo on pain meds 04/01/2015 Appointment: Vonnie Mathews WPtel: [address] [place], [place] [phone] 03/31 confirmed -mf PHYSICAL 04/01/2015 Patient Education: Patient Medication Summary Completed 04/01/2015 Appointment: Vonnie Mathews WPtel: [address] [place], [place] [phone] Annual Well Visit 09/23/2014 Visit Plan: Continue protonix Pt has fwu p with Card next month Rec chiropracter or PT for ribs/thoracics being out and could be contributing to chest pain 01/13/2014 Appointment: Vonnie Mathews WPtel: [address] [place] [address] FOLLOW UP 01/13/2014 Patient Education: Patient Medication Summary Completed 01/13/2014 Appointment: Ariella Mcnally WPtel: [address] [place] [address] US FOLLOW UP 12/12/2013 Appointment: Malika Cárdenas WPtel: [address] [place], [place] [phone] PHYSICAL 12/12/2013 Appointment: Vonnie Mathews WPtel: [address] [place], [place] [phone] ACUTE ILLNESS 02/20/2013 Appointment: Vonnie Mathews WPtel: [address] [place], [place] [phone] [place] LAB 07/19/2012 Patient Education: Patient Medication Summary Completed 07/19/2012 Appointment: Vonnie Mathews WPtel: [address] [place], [place] [phone] US FOLLOW UP 04/03/2012 Patient Education: Patient Medication Summary Completed 04/03/2012 Appointment: Vonnie Mathews WPtel: [address] [place], [place] [phone] ACUTE ILLNESS 03/22/2012 Patient Education: Patient Medication Summary Completed 03/22/2012 Appointment: Vonnie Mathews WPtel: [address] [place], [place] [phone] [place] FOLLOW UP 12/26/2011 Visit Plan: Add Cipro Continue current m eds 12/20/2011 Appointment: Vonnie Mathews WPtel: [address] [place], [place] [phone] ACUTE ILLNESS 12/20/2011 Patient Education: Patient Medication Summary Completed 12/20/2011 Visit Plan: Change neurontin to Cymbalta 30mg for 1wk then 60mg QD Add Propranolol for tremor 10/24/2011 Appointment: Vonnie Mathews WPtel: [address] [place] [address] ACUTE ILLNESS 10/24/2011 Appointment: Vonnie Mathews WPtel: [address] [place] [address] ACUTE ILLNESS 10/24/2011 Patient Education: Patient Medication Summary Completed 10/24/2011 Visit Plan: Continue current meds and fw up with Card as scheduled 03/13/2011 Appointment: Vonnie Mathews WPtel: [address] [place] [address] FOLLOW UP 03/13/2011 Patient Education: Patient Medication Summary Completed 03/13/2011 Visit Plan: Will obtain all records and lab from [place] Discussed will likely need heart cath which pt states that Card did talk to him about in the hospital 02/20/2011 Appointment: Vonnie Mathews WPtel: [address] [place], [place] [phone] ACUTE ILLNESS 02/20/2011 Patient Education: Patient Medication Summary Completed 02/20/2011 Visit Plan: Cont Pepcid and Prilosec See Card for cardiac cath. 02/23/2010 Appointment: Vonnie Mathews WPtel: [address] [place], [place] [id number] [place] FOLLOW UP 02/23/2010 Patient Education: Patient Medication Summary Completed 02/23/2010 Visit Plan: Increase Pamelor to 75mg qhs Increase Hydrocodone to 10/325mg 1-2 po q6 prn 01/12/2010 Appointment: Vonnie Mathews WPtel: [phone] [id number] ACUTE ILLNESS 01/12/2010 Patient Education: Patient Medication Summary Completed 01/12/2010 Referral: Iván Pardo WPtel: [facility] [id number] Referral Initiated Referral: Fernando Day WPtel: #1 [id number] Referral Completed Referral: Fernando Day WPtel: #1 [id number] Referral Appointment Requested Instructions Comment . Finish [...]
[2020-02-10] MEDS ORDERED: NS IV 1000 ML 1,000 ML ONE (08:18)
--- OUTSIDE RECORDS SUMMARY | 2020-02-10 08:18 | XMS REPORT | CCD ---
Author Author Nash Mathews D.O. 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 Phone Vonnie Mathews D.O., PP Unavailable CCM Unavailable Summary Purpose Interface Exchange Insurance Providers Payer name Policy type / Coverage type Covered libertarian ID Effective Begin Date Effective End Date [employer] MEDICARE Medicare Part B [id number] 2019 Unknown Family History Family History data not found Social History Social History Element Codes Description Effective Dates Marital status Unknown 10/24/[address]: 657440703 Nonsmoker 03/29/2011 Allergies, Adverse Reactions, Alerts Substance [...] R63.4 08/21/2017 Active 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: [...] Fill Instructions clonazepam 1 mg tablet RxNorm: 780312 TAKE 1 TABLET BY MOUTH EV SUSAN MORNING 10/16/2019 11/14/2019 Active pravastatin 20 mg tablet RxNorm: 159151 1 Tablet(s) Oral QD 020 04/06/2020 Active Singulair 10 mg tablet RxNorm: 631270 TAKE 1 TABLET BY MOUTH EV SUSAN DAY 10/10/2019 07/05/2020 Active Lyrica 75 mg capsule RxNorm: 530338 1 Capsule(s) Oral every nig ht at bedtime 10/09/2019 01/07/2020 Active clonazepam 1 mg tablet RxNorm: 710966 TAKE 1 TABLET BY MOUTH EV SUSAN AM 09/23/2019 10/15/2019 Inactive clonazepam 1 mg tablet RxNorm: 858435 TAKE 1 TABLET BY MOUTH EV SUSAN AM 08/21/2019 09/22/2019 Inactive Singulair 10 mg tablet RxNorm: 534418 TABLET(S) 1 TABLET(S) PO QD 1 10/09/2019 Inactive Flagyl 500 mg tablet RxNorm: 319515 1 Tablet(s) PO TID 05/26/2019 Inactive clonazepam 1 mg tablet RxNorm: 971169 TAKE 1 TABLET BY MOUTH EV SUSAN MORNING 05/23/2019 06/21/2019 Inactive pravastatin 20 mg tablet RxNorm: 697315 1 Tablet(s) PO QD 04/14/2019 10/09/2019 Inactive Needs updated fasting labs Singulair 10 mg tablet RxNorm: 915130 Tablet(s) 1 TABLET(S) PO QD 0 04/14/2019 07/12/2019 Inactive clonazepam 1 mg tablet RxNorm: 355269 1 Tablet(s) PO QAM 02/21/2019 0 05/23/2019 Inactive Bevespi Aerosphere 9 mcg-4.8 mcg HFA aerosol inhaler RxNorm: 7236051 2 Puff(s) INH BID 02/19/2019 No Stop Date Active ProAir HFA 90 mcg/actuation aerosol inhaler RxNorm: 312290 2 Puff(s) INH Q4H as needed 02/19/2019 09/24/2019 Inactive metoprolol tartrate 25 mg tablet RxNorm: 257835 1/2 Tablet(s) PO BI D 02/18/2019 05/18/2019 Inactive pravastatin 20 mg tablet RxNorm: 388364 1 Tablet(s) PO QD Needs updated fasting labs 01/13/2019 04/14/2019 Inactive Needs updated fa sting labs Singulair 10 mg tablet RxNorm: 291765 Tablet(s) 1 TABLET(S) PO QD 0 01/13/2019 04/12/2019 Inactive Plavix 75 mg tablet RxNorm: 257501 Tablet(s) 1 TABLET(S) PO QD 04/04/201906/20/2019 Inactive [SAVINGS FOR NON-COVERED SHANDA GS -- BIN:412526, PCN: ASPROD1, Group: XXXXX, ID# [id number], Questions: . THIS IS NOT INSURANCE.] Singulair 10 mg tablet RxNorm: 561299 1 TABLET(S) PO QD 10/29/2018 Inactive primidone 50 mg tablet RxNorm: 664618 2 TABLET(S) PO BI D TAKE 2 TABLETS BY MOUTH EVERY NIGHT AT BEDTIME 10/07/2018 01/12/2019 Inactive Patient requests 90 days supply pravastatin 20 mg tablet RxNorm: 593356 1 TABLET(S) PO QD 09/23/2018 01/12/2019 Inactive clonazepam 1 mg tablet RxNorm: 120320 1 Tablet(s) PO QAM 09/19/2018 0 12/17/2018 Inactive primidone 50 mg tablet RxNorm: 513565 TABLET(S) TAKE 2 TABLETS BY MOUTH EVERY NIGHT AT BEDTIME 09/18/2018 01/12/2019 Inactive ciprofloxacin 0.2 % ear drops in a dropperette RxNorm: 61976 6 2 Drop(s) left otic (ear) BID 09/03/2018 09/09/2018 Inactive primidone 50 mg tablet RxNorm: 937501 2 Tablet(s) PO BI D TAKE 2 TABLETS BY MOUTH EVERY NIGHT AT BEDTIME 08/26/2018 10/06/2018 Inactive Ambien 5 mg tablet RxNorm: 697509 TAKE 1 TABLET BY MOUTH EVERY NIGHT AT BEDTIME 08/05/2018 09/03/2018 Inactive Singulair 10 mg tablet RxNorm: 031834 1 TABLET(S) PO QD 07/23/2018 Inactive clonazepam 1 mg tablet RxNorm: 960464 TAKE 1 TABLET BY MOUTH EV SUSAN MORNING 07/23/2018 08/21/2018 Inactive Plavix 75 mg tablet RxNorm: 044392 1 TABLET(S) PO QD 07/04/201812/22 Inactive [SAVINGS FOR NON-COVERED DRUGS -- BIN:00 3585, PCN: ASPROD1, Group: XXXXX, ID# [id number], Questions: . THIS IS NOT INSURANCE.] clonazepam 1 mg tablet RxNorm: 125696 TAKE 1 TABLET BY MOUTH EV SUSAN MORNING 06/25/2018 07/23/2018 Inactive clonazepam 1 mg tablet RxNorm: 071145 TAKE 1 TABLET BY MOUTH EV SUSAN MORNING 05/23/2018 06/21/2018 Inactive primidone 50 mg tablet RxNorm: 774578 Tablet(s) TAKE 2 TABLETS BY MOUTH EVERY NIGHT AT BEDTIME 05/16/2018 08/25/2018 Inactive oxycodone-acetaminophen 7.5 mg-325 mg tablet RxNorm: 5185371 1-2 Tablet(s) PO TID as needed 04/25/2018 05/24/2018 Inactive Singulair 10 mg tablet RxNorm: 699334 1 Tablet(s) PO QD 04/25/2018 Inactive Medrol (Jose) 4 mg tablets in a dose pack RxNorm: 325814 Tablet(s) PO take as directed 04/25/2018 09/02/2018 Inactive clonazepam 1 mg tablet RxNorm: 831546 TAKE 1 TABLET BY MOUTH EV SUSAN MORNING 04/24/2018 05/22/2018 Inactive Plavix 75 mg tablet RxNorm: 206219 1 TABLET(S) PO QD 04/04/201807/02 Inactive [SAVINGS FOR NON-COVERED DRUGS -- BIN:00 3585, PCN: ASPROD1, Group: XXXXX, ID# [id number], Questions: . THIS IS NOT INSURANCE.] pravastatin 20 mg tablet RxNorm: 332197 1 Tablet(s) PO QD 03/21/2018 09/16/2018 Inactive ProAir HFA 90 mcg/actuation aerosol inhaler RxNorm: 814699 2 Puff(s) INH Q4H as needed 03/18/2018 03/17/2018 Inactive tamsulosin 0.4 mg capsule RxNorm: 761453 1 CAPSULE(S) PO QD 018 01/12/2019 Inactive clonazepam 1 mg tablet RxNorm: 414937 1 Tablet(s) PO QAM 02/25/2018 0 04/25/2018 Inactive tamsulosin 0.4 mg capsule RxNorm: 367063 1 Capsule(s) PO QD 018 03/13/2018 Inactive tamsulosin 0.4 mg capsule RxNorm: 059900 1 Capsule(s) PO QD 018 02/03/2018 Inactive tamsulosin 0.4 mg capsule RxNorm: 682592 1 Capsule(s) PO QD 018 02/12/2018 Inactive Ambien 5 mg tablet RxNorm: 848185 Tablet(s) TAKE 1 TAB LET BY MOUTH EVERY NIGHT AT BEDTIME 01/24/2018 08/05/2018 Inactive primidone 50 mg tablet RxNorm: 662271 Tablet(s) TAKE 2 TABLETS BY MOUTH EVERY NIGHT AT BEDTIME 01/18/2018 05/16/2018 Inactive cyclobenzaprine 10 mg tablet RxNorm: 530827 1 Tablet(s) PO TID as needed for muscle spasm 01/11/2018 02/09/2018 Inactive [SAVINGS FOR NON -COVERED DRUGS -- BIN:108851, PCN: ASPROD1, Group: XXXXX, ID# [id number], Questions: . THIS IS NOT INSURANCE.] clonazepam 1 mg tablet RxNorm: 712970 1 Tablet(s) PO QAM 12/24/2017 0 02/21/2018 Inactive prednisone 20 mg tablet RxNorm: 274597 1 Tablet(s) PO QD 11/06/2017 0 11/10/2017 Inactive EpiPen 2-Jose 0.3 mg/0.3 mL injection, auto-injector RxNorm: 262807 1 Unit Dose IM as needed 11/06/2017 09/24/2019 Inactive ProAir HFA 90 mcg/actuation aerosol inhaler RxNorm: 738529 2 Puff(s) INH Q4H as needed 10/30/2017 03/17/2018 Inactive primidone 50 mg tablet RxNorm: 842605 TAKE 2 TABLETS BY MOUTH EVERY NIGHT AT BEDTIME 10/15/2017 01/17/2018 Inactive Plavix 75 mg tablet RxNorm: 746838 1 Tablet(s) PO QD 10/01/201703/29 Inactive [SAVINGS FOR NON-COVERED DRUGS -- BIN:00 3585, PCN: ASPROD1, Group: XXXXX, ID# [id number], Questions: . THIS IS NOT INSURANCE.] clonazepam 1 mg tablet RxNorm: 031607 1 Tablet(s) PO QAM 09/19/2017 0 12/16/2017 Inactive primidone 50 mg tablet RxNorm: 097957 2 Tablet(s) PO QHS 08/29/2017 0 01/18/2018 Inactive oxycodone-acetaminophen 7.5 mg-325 mg tablet RxNorm: 8009866 1-2 Tablet(s) PO TID as needed 08/22/2017 09/19/2017 Inactive pravastatin 20 mg tablet RxNorm: 993805 1 Tablet(s) PO QD 08/21/2017 03/21/2018 Inactive carvedilol 3.125 mg tablet RxNorm: 707681 1 Tablet(s) P O BID to replace 6.25mg dose 08/21/2017 09/02/2017 Inactive primidone 50 mg tablet RxNorm: 369596 TAKE 2 TABLETS BY MOUTH EVERY NIGHT AT BEDTIME 06/18/2017 08/28/2017 Inactive clonazepam 1 mg tablet RxNorm: 905989 1 Tablet(s) PO QAM 06/04/2017 1 11/02/2016 Inactive Plavix 75 mg tablet RxNorm: 975823 1 Tablet(s) PO QD 04/10/201710/01 Inactive [SAVINGS FOR NON-COVERED DRUGS -- BIN:00 7755, PCN: ASPROD1, Group: XXXXX, ID# [id number], Questions: . THIS IS NOT INSURANCE.] pravastatin 20 mg tablet RxNorm: 072849 1 Tablet(s) PO QD 02/26/2017 08/24/2017 Inactive carvedilol 3.125 mg tablet RxNorm: 091798 1 Tablet(s) P O BID to replace 6.25mg dose 02/26/2017 08/21/2017 Inactive Ultram 50 mg tablet RxNorm: 233455 TAKE 1 TO 2 TABLETS BY MOUTH THREE TIMES DAILY NEEDED FOR PAIN 02/26/2017 03/07/2017 Inactive pravastatin 20 mg tablet RxNorm: 564011 1 Tablet(s) PO QD 02/26/2017 08/21/2017 Inactive carvedilol 3.125 mg tablet RxNorm: 607963 1 Tablet(s) P O BID to replace 6.25mg dose 02/26/2017 08/20/2017 Inactive clonazepam 0.5 mg tablet RxNorm: 734990 1 Tablet(s) PO QAM 02/14/20 17 02/13/2017 Inactive primidone 50 mg tablet RxNorm: 945147 1 Tablet(s) PO QHS 02/13/2017 0 05/01/2017 Inactive clonazepam 1 mg tablet RxNorm: 551440 1 Tablet(s) PO QAM 02/13/2017 0 05/13/2017 Inactive primidone 50 mg tablet RxNorm: 946660 1/2 Tablet(s) PO QD for 7 days then increase to 1 tablet at bedtime 01/09/2017 02/12/2017 Inactive pravastatin 20 mg tablet RxNorm: 864075 Tablet(s) 1 TABLET(S) PO QD 11/29/2016 02/25/2017 Inactive clonazepam 1 mg tablet RxNorm: 399901 1 Tablet(s) PO BID replac es 0.5mg dose 11/23/2016 01/08/2017 Inactive pravastatin 20 mg tablet RxNorm: 485077 1 TABLET(S) PO QD 11/17/2016 11/28/2016 Inactive Ambien 5 mg tablet RxNorm: 794796 TAKE 1 TABLET BY MOUTH EVERY NIGHT AT BEDTIME 11/17/2016 12/14/2016 Inactive clonazepam 0.5 mg tablet RxNorm: 503405 TAKE 1 TABLET BY MOUTH TWICE DAILY 11/17/2016 11/22/2016 Inactive Plavix 75 mg tablet RxNorm: 021662 1 Tablet(s) PO QD 11/06/201604/09 Inactive [SAVINGS FOR NON-COVERED DRUGS -- BIN:00 3585, PCN: ASPROD1, Group: XXXXX, ID# [id number], Questions: . THIS IS NOT INSURANCE.] Plavix 75 mg tablet RxNorm: 264820 1 Tablet(s) PO QD 08/28/201611/05 Inactive [SAVINGS FOR NON-COVERED DRUGS -- BIN:00 3585, PCN: ASPROD1, Group: XXXXX, ID# [id number], Questions: . THIS IS NOT INSURANCE.] Lidoderm 5 % topical patch RxNorm: 7103389 Application T OP 2 patches for 12hrs then off for 12hrs 08/28/2016 08/27/2016 Inactive clonazepam 0.5 mg tablet RxNorm: 121162 1 Tablet(s) PO BID 08/07/20 16 11/22/2016 Inactive pravastatin 20 mg tablet RxNorm: 688427 1 Tablet(s) PO QD 08/07/2016 11/04/2016 Inactive cyclobenzaprine 10 mg tablet RxNorm: 459810 1 Tablet(s) PO TID as needed for muscle spasm 08/07/2016 09/05/2016 Inactive [SAVINGS FOR NON -COVERED DRUGS -- BIN:716847, PCN: ASPROD1, Group: XXXXX, ID# [id number], Questions: . THIS IS NOT INSURANCE.] Plavix 75 mg tablet RxNorm: 277630 1 Tablet(s) PO QD 08/07/201608/27 Inactive [SAVINGS FOR NON-COVERED DRUGS -- BIN: 3585, PCN: ASPROD1, Group: XXXXX, ID# [id number], Questions: . THIS IS NOT INSURANCE.] carvedilol 3.125 mg tablet RxNorm: 255949 1 Tablet(s) P O BID to replace 6.25mg dose 08/07/2016 02/02/2017 Inactive clonazepam 0.5 mg tablet RxNorm: 554753 1 Tablet(s) PO BID 07/04/20 16 08/07/2016 Inactive Plavix 75 mg tablet RxNorm: 319785 1 TABLET(S) PO QD 06/20/201608/06 Inactive [SAVINGS FOR NON-COVERED DRUGS -- BIN:00 3585, PCN: ASPROD1, Group: XXXXX, ID# [id number], Questions: . THIS IS NOT INSURANCE.] clonazepam 0.5 mg tablet RxNorm: 026145 1 Tablet(s) PO BID 06/09/20 16 07/03/2016 Inactive pravastatin 20 mg tablet RxNorm: 370117 1 Tablet(s) PO QD 05/23/2016 08/06/2016 Inactive pravastatin 20 mg tablet RxNorm: 573754 1 Tablet(s) PO QD 05/23/2016 05/22/2016 Inactive carvedilol 3.125 mg tablet RxNorm: 510675 1 Tablet(s) P O BID to replace 6.25mg dose 05/10/2016 08/06/2016 Inactive carvedilol 3.125 mg tablet RxNorm: 346736 1 Tablet(s) P O BID to replace 6.25mg dose 05/10/2016 05/09/2016 Inactive clonazepam 0.5 mg tablet RxNorm: 485508 1 Tablet(s) PO BID 05/10/20 16 06/08/2016 Inactive carvedilol 6.25 mg tablet RxNorm: 945709 1 Tablet(s) PO QD 05/10/20 16 05/10/2016 Inactive simvastatin 40 mg tablet RxNorm: 183487 1 TABLET(S) PO QD 04/10/2016 05/09/2016 Inactive Medrol (Jose) 4 mg tablets in a dose pack RxNorm: 226448 Tablet(s) PO As Directed 01/13/2016 05/09/2016 Inactive cyclobenzaprine 10 mg tablet RxNorm: 531941 1 TABLET(S) PO TID NEEDED FOR SPASM 01/11/2016 03/10/2016 Inactive [SAVINGS FOR NON -COVERED DRUGS -- BIN:628227, PCN: ASPROD1, Group: XXXXX, ID# [id number], Questions: . THIS IS NOT INSURANCE.] Plavix 75 mg tablet RxNorm: 029024 1 Tablet(s) PO QD 12/30/201506/19 Inactive [SAVINGS FOR NON-COVERED DRUGS -- BIN:00 3585, PCN: ASPROD1, Group: XXXXX, ID# [id number], Questions: . THIS IS NOT INSURANCE.] Ambien 5 mg tablet RxNorm: 699193 TAKE 1 TABLET BY MOUTH EVERY DAY AT BEDTIME 11/15/2015 11/17/2016 Inactive simvastatin 40 mg tablet RxNorm: 230393 1 Tablet(s) PO QD 10/11/2015 01/12/2019 Inactive simvastatin 40 mg tablet RxNorm: 926089 1 Tablet(s) PO QD 10/08/2015 10/10/2015 Inactive Ambien 5 mg tablet RxNorm: 127109 TAKE 1 TABLET BY MOUTH EVERY NIGHT AT BEDTIME 07/27/2015 11/15/2015 Inactive Plavix 75 mg tablet RxNorm: 506317 1 Tablet(s) PO QD 06/28/201512/29 Inactive [SAVINGS FOR NON-COVERED DRUGS -- BIN:00 3585, PCN: ASPROD1, Group: XXXXX, ID# [id number], Questions: . THIS IS NOT INSURANCE.] Coreg 6.25 mg tablet RxNorm: 443770 1 TABLET(S) PO BID 04/19/2015 Inactive [SAVINGS FOR NON-COVERED DRUGS -- BIN:00 3585, PCN: ASPROD1, Group: XXXXX, ID# [id number], Questions: . THIS IS NOT INSURANCE.] simvastatin 40 mg tablet RxNorm: 978603 1 Tablet(s) PO QD 04/05/2015 04/04/2015 Inactive simvastatin 40 mg tablet RxNorm: 540873 1 Tablet(s) PO QD 04/05/2015 10/11/2015 Inactive Plavix 75 mg tablet RxNorm: 597375 1 TABLET(S) PO QD 03/22/201504/20 Inactive [SAVINGS FOR NON-COVERED DRUGS -- BIN:00 3585, PCN: ASPROD1, Group: XXXXX, ID# [id number], Questions: . THIS IS NOT INSURANCE.] Plavix 75 mg tablet RxNorm: 834112 1 Tablet(s) PO QD 03/22/201506/28 Inactive [SAVINGS FOR NON-COVERED DRUGS -- BIN:00 3585, PCN: ASPROD1, Group: XXXXX, ID# [id number], Questions: . THIS IS NOT INSURANCE.] Ambien 5 mg tablet RxNorm: 338288 1 Tablet(s) PO QHS 12/17/201407/28 Inactive [SAVINGS FOR NON-COVERED DRUGS -- BIN:00 3585, PCN: ASPROD1, Group: XXXXX, ID# [id number], Questions: . THIS IS NOT INSURANCE.] Coreg 6.25 mg tablet RxNorm: 404885 1 Tablet(s) PO BID 12/17/2014 Inactive [SAVINGS FOR NON-COVERED DRUGS -- BIN:00 3585, PCN: ASPROD1, Group: XXXXX, ID# [id number], Questions: . THIS IS NOT INSURANCE.] Plavix 75 mg tablet RxNorm: 210799 1 Tablet(s) PO QD 12/17/201403/16 Inactive [SAVINGS FOR NON-COVERED DRUGS -- BIN:00 3585, PCN: ASPROD1, Group: XXXXX, ID# XXXXXXX, Questions: . THIS IS NOT INSURANCE.] cyclobenzaprine 10 mg tablet RxNorm: 861077 1 Tablet(s) PO TID as needed for spasm 12/17/2014 03/16/2015 Inactive [SAVINGS FOR NON -COVERED DRUGS -- BIN:921577, PCN: ASPROD1, Group: XXXXX, ID# [id number], Questions: . THIS IS NOT INSURANCE.] Coreg 6.25 mg tablet RxNorm: 084086 1 Tablet(s) PO BID 10/21/201409/2014 Inactive [SAVINGS FOR NON-COVERED DRUGS -- BIN:00 3585, PCN: ASPROD1, Group: XXXXX, ID# [id number], Questions: . THIS IS NOT INSURANCE.] Plavix 75 mg tablet RxNorm: 776339 1 Tablet(s) PO QD 10/21/201412/16 Inactive [SAVINGS FOR NON-COVERED DRUGS -- BIN:00 3585, PCN: ASPROD1, Group: XXXXX, ID# [id number], Questions: . THIS IS NOT INSURANCE.] Plavix 75 mg tablet RxNorm: 645772 1 Tablet(s) PO QD Ne [facility] routine check up--last seen March 2012 09/21/2014 10/20/2014 Inactive [SAVINGS FOR UNINSURED PATIENTS -- BIN:147068, PCN: ASPROD1, Group: AME08, ID# [id number], Process claim through [employer], for questions: . THIS IS NOT INSURANCE.] Ambien 5 mg tablet RxNorm: 059478 1 Tablet(s) PO QHS 09/21/201412/16 Inactive [SAVINGS FOR UNINSURED PATIENTS -- BIN:0 22964, PCN: ASPROD1, Group: AME08, ID# [id number], Process claim through [employer], for questions: . THIS IS NOT INSURANCE.] Coreg 6.25 mg tablet RxNorm: 029783 1 Tablet(s) PO BID 09/21/201411/2014 Inactive [SAVINGS FOR UNINSURED PATIENTS -- BIN:0 71028, PCN: ASPROD1, Group: AME08, ID# [id number], Process claim through [employer], for questions: . THIS IS NOT INSURANCE.] Plavix 75 mg tablet RxNorm: 664766 1 Tablet(s) PO QD Ne eds routine check up--last seen March 2012 08/04/2014 09/02/2014 Inactive [SAVINGS FOR UNINSURED PATIENTS -- BIN:471226, PCN: ASPROD1, Group: AME08, ID# [id number], Process claim through [employer], for questions: . THIS IS NOT INSURANCE.] Plavix 75 mg tablet RxNorm: 292604 1 Tablet(s) PO QD Ne eds routine check up--last seen March 2012 08/03/2014 08/03/2014 Inactive Protonix 40 mg tablet,delayed release RxNorm: 095846 1 Tablet(s ) PO QD 06/08/2014 02/17/2019 Inactive [SAVINGS FOR UNINSUR ED PATIENTS -- BIN:772718, PCN: ASPROD1, Group: AME08, ID# [id number], Process claim through [employer], for questions: . THIS IS NOT INSURANCE.] hydrocodone 10 mg-acetaminophen 325 mg tablet RxNorm: 201448 1 Tablet(s) PO BID as needed for pain 02/18/2014 03/31/2015 Inactive Coreg 6.25 mg tablet RxNorm: 071153 1 Tablet(s) PO BID 02/02/2014 Inactive Protonix 40 mg granules delayed-release packet RxNorm: 282786 1 Tablet(s) PO QD 01/13/2014 06/08/2014 Inactive Plavix 75 mg tablet RxNorm: 746408 1 Tablet(s) PO QD Ne eds routine check up--last seen March 2012 01/13/2014 08/02/2014 Inactive Plavix 75 mg tablet RxNorm: 421608 1 Tablet(s) PO QD Ne eds routine check up--last seen March 2012 12/09/2013 01/07/2014 Inactive Coreg 6.25 mg tablet RxNorm: 287766 1 Tablet(s) PO BID 12/09/2013 Inactive Cymbalta 60 mg capsule,delayed release RxNorm: 949398 1 Capsule (s) PO QD 10/31/2013 01/12/2014 Inactive Coreg 6.25 mg tablet RxNorm: 096897 1 Tablet(s) PO BID 10/31/2013 Inactive Plavix 75 mg tablet RxNorm: 106441 1 Tablet(s) PO QD Ne eds routine check up--last seen March 2012 10/31/2013 11/29/2013 Inactive Coreg 6.25 mg tablet RxNorm: 426144 1 Tablet(s) PO BID 10/31/2013 Inactive atorvastatin 40 mg tablet RxNorm: 377656 1 Tablet(s) PO QD 10/31/19 14 03/31/2015 Inactive Plavix 75 mg tablet RxNorm: 516583 1 Tablet(s) PO QD Ne eds routine check up--last seen March 2012 09/23/2013 10/30/2013 Inactive cyclobenzaprine 10 mg tablet RxNorm: 473735 1 Tablet(s) PO TID as needed for spasm 09/23/2013 No Stop Date Active cyclobenzaprine 10 mg tablet RxNorm: 015833 1 Tablet(s) PO TID as needed for spasm 07/04/2013 09/22/2013 Inactive atorvastatin 40 mg tablet RxNorm: 476642 1 Tablet(s) PO QD 06/23/20 13 10/30/2013 Inactive atorvastatin 40 mg tablet RxNorm: 491798 1 Tablet(s) PO QD 04/22/20 13 06/22/2013 Inactive Nucynta 50 mg tablet RxNorm: 068754 1-2 Tablet(s) PO Q6H as nee ded for pain 01/01/2013 01/12/2014 Inactive Ambien 5 mg tablet RxNorm: 385558 1 Tablet(s) PO QHS 10/16/201201/13 Inactive Plavix 75 mg tablet RxNorm: 619322 1 Tablet(s) PO QD 09/19/201209/13 Inactive Protonix 40 mg tablet,delayed release RxNorm: 234477 1 Tablet(s ) PO QD 09/19/2012 09/18/2012 Inactive simvastatin 40 mg tablet RxNorm: 709131 1 Tablet(s) PO QD 09/19/2012 02/23/2013 Inactive Protonix 40 mg tablet,delayed release RxNorm: 867658 1 Tablet(s ) PO QD 09/19/2012 09/13/2013 Inactive Ultram 50 mg tablet RxNorm: 307621 1-2 Tablet(s) PO QID as need ed for pain 09/19/2012 02/26/2017 Inactive propranolol 80 mg tablet RxNorm: 001107 1 Tablet(s) PO QHS 09/19/19 13 09/18/2012 Inactive Cymbalta 60 mg capsule,delayed release RxNorm: 608696 1 Capsule (s) PO QD 09/19/2012 09/18/2012 Inactive Cymbalta 60 mg capsule,delayed release RxNorm: 737048 1 Capsule (s) PO QD 09/19/2012 03/17/2013 Inactive propranolol 80 mg tablet RxNorm: 839498 1 Tablet(s) PO QHS 09/19/19 13 02/23/2013 Inactive hydrocodone-acetaminophen 10 mg-325 mg tablet RxNorm: 531710 2 1-2 Tablet(s) PO QID 07/25/2012 02/23/2013 Inactive Ambien 10 mg tablet RxNorm: 611574 1 Tablet(s) PO QHS as needed for sleep 07/10/2012 01/27/2013 Inactive propranolol 80 mg tablet RxNorm: 584726 1 Tablet(s) PO QHS 05/13/20 12 09/18/2012 Inactive hydrocodone-acetaminophen 10 mg-325 mg tablet RxNorm: 812455 2 1-2 Tablet(s) PO QID 05/02/2012 No Stop Date Active Restoril 15 mg Cap RxNorm: 956996 1-2 Capsule(s) PO QHS 05/02/2012 Inactive propranolol 80 mg tablet RxNorm: 459031 1 Tablet(s) PO QHS 05/02/2005/12/2012 Inactive Chantix Starting Month Box 0.5 mg (11)-1 mg (42) Tabs in a Dose Pack RxNorm: 680022 Tablet(s) PO As Directed 04/01/2012 01/27/2013 Inactive simvastatin 40 mg tablet RxNorm: 195545 1 Tablet(s) PO QD 03/28/2012 09/18/2012 Inactive simvastatin 40 mg Tab RxNorm: 525374 1 Tablet(s) PO QD 03/22/201207/2012 Inactive Effient 10 mg Tab RxNorm: 892337 1 Tablet(s) PO QD 03/22/2012 012 Inactive Prilosec 40 mg Capsule, delayed release RxNorm: 711592 1 Capsul e(s) PO QD 03/22/2012 09/18/2012 Inactive Prilosec 40 mg Capsule, delayed release RxNorm: 213414 1 Capsul e(s) PO QD 03/19/2012 03/21/2012 Inactive Cymbalta 60 mg capsule,delayed release RxNorm: 247217 1 Capsule (s) PO QD 03/04/2012 08/30/2012 Inactive hydrocodone-acetaminophen 10 mg-325 mg Tab RxNorm: 4324921 1-2 T ablet(s) PO QID 01/23/2012 No Stop Date Active Cymbalta 60 mg Capsule, delayed release RxNorm: 294225 1 Capsul e(s) PO QD 01/23/2012 03/03/2012 Inactive Cipro 500 mg Tab RxNorm: 345032 1 Tablet(s) PO BID 12/20/2011 012 Inactive Cymbalta 60 mg Capsule, delayed release RxNorm: 040882 1 Capsul e(s) PO QD 12/13/2011 01/22/2012 Inactive nortriptyline 75 mg Cap RxNorm: 039265 1 Capsule(s) PO QHS 11/29/1904/02/2012 Inactive Cymbalta 60 mg Cap RxNorm: 453131 1 Capsule(s) PO QD 10/24/201112/11 Inactive propranolol 80 mg Tab RxNorm: 183892 1 Tablet(s) PO QHS 10/24/2011 Inactive hydrocodone-acetaminophen 10 mg-325 mg Tab RxNorm: 6245550 1-2 T ablet(s) PO QID 09/29/2011 No Stop Date Active hydrocodone-acetaminophen 10 mg-325 mg Tab RxNorm: 7611271 1-2 T ablet(s) PO QID 07/25/2011 No Stop Date Active hydrocodone-acetaminophen 10 mg-325 mg Tab RxNorm: 2695435 1-2 T ablet(s) PO QID 02/14/2011 No Stop Date Active Prilosec 40 mg Cap RxNorm: 836972 1 Capsule(s) PO 01/03/2011 01/13/20 19 Inactive nortriptyline 75 mg Cap RxNorm: 256301 1 Capsule(s) PO QHS 01/04/20 11 07/01/2011 Inactive Neurontin 600 mg Tab RxNorm: 495585 1 Tablet(s) PO QHS 12/08/201011/2011 Inactive hydrocodone-acetaminophen 5 mg-500 mg Tab RxNorm: 083997 2 Tablet(s) PO Q4-6H prn 10/20/2010 01/08/2011 Inactive Diltzac ER 240 mg Cap RxNorm: 184061 1 Capsule(s) PO QD 07/14/2010 Inactive Nortriptyline 75 mg Cap RxNorm: 366569 1 Capsule(s) PO QHS 05/09/20 10 01/12/2019 Inactive Neurontin 600 mg Tab RxNorm: 939067 1 Tablet(s) PO QD 03/17/201012/17 Inactive Nortriptyline 75 mg Cap RxNorm: 503280 1 Capsule(s) PO 01/12/2010 Inactive Nortriptyline 50 mg Cap RxNorm: 852261 1 Capsule(s) PO QHS 01/13/20 10 01/11/2010 Inactive Diltzac ER 240 mg Cap RxNorm: 813290 1 Capsule(s) PO QD 12/06/2009 Inactive aspirin 81 mg Tab RxNorm: 831002 1 Tablet(s) PO QD No Start Date Active Vitamin D3 2,000 unit tablet RxNorm: 921139 1 Tablet(s) PO QD No Star t Date Active llaqeqlmp-fbmlmwhbb-xzicqg complex no.233 oral RxNorm: oral No Start Date Active primidone 50 mg tablet RxNorm: 270191 2 Tablet(s) PO BID No Start Date Active Prilosec 40 mg Capsule, delayed release RxNorm: 254750 1 Capsul e(s) PO QD No Start Date 03/18/2012 Inactive Prilosec 20 mg Cap RxNorm: 462069 1 Capsule(s) PO QHS No Start Date 0 01/02/2011 Inactive primidone 50 mg tablet RxNorm: 233273 1/2 Tablet(s) PO QHS for 1week then go full tab if needed No Start Date 05/01/2017 Inactive ProAir HFA 90 mcg/actuation aerosol inhaler RxNorm: 698159 2 Puff(s) INH Q4H as needed No Start Date 10/29/2017 Inactive clonazepam 0.5 mg tablet RxNorm: 895745 1/2 Tablet(s) PO BID No Sta rt Date 02/12/2017 Inactive Pepcid AC 10 mg Tab RxNorm: 500006 1 Tablet(s) PO QAM No Start Date 0 02/19/2011 Inactive Coreg Oral RxNorm: Oral No Start Date 01/12/2014 Inactive primidone 50 mg tablet RxNorm: 275096 1/2 Tablet(s) PO QD for 7 days then increase to 1 tablet at bedtime No Start Date 01/08/2017 Inactive Medrol (Jose) 4 mg tablets in a dose pack RxNorm: 939586 Tablet(s) PO As Directed No Start Date 01/12/2016 Inactive Plavix 75 mg tablet RxNorm: 964270 1 Tablet(s) PO QD No Start Date Inactive cyclobenzaprine 10 mg tablet RxNorm: 704287 1 Tablet(s) PO TID as needed for spasm No Start Date 07/03/2013 Inactive Bevespi Aerosphere 9 mcg-4.8 mcg HFA aerosol inhaler RxNorm: 4620293 2 Puff(s) INH BID No Start Date 02/18/2019 Inactive tramadol 50 mg tablet RxNorm: 990111 1-2 Tablet(s) PO TID as ne eded for pain No Start Date 01/12/2019 Inactive clonazepam 1 mg tablet RxNorm: 815147 1 Tablet(s) PO QAM No Start D ate 09/18/2018 Inactive hydrocodone-acetaminophen 5 mg-500 mg Tab RxNorm: 538887 2 Tablet(s) PO Q4-6H prn No Start Date 10/19/2010 Inactive lisinopril 20 mg Tab RxNorm: 931644 1/2 Tablet(s) PO QD No Start Da te 03/12/2011 Inactive Lyrica 75 mg capsule RxNorm: 867794 1 Capsule(s) PO QHS No Start Da te 10/08/2019 Inactive Protonix 40 mg tablet,delayed release RxNorm: 450063 1 Tablet(s ) PO QD No Start Date 06/07/2014 Inactive Lipitor Oral RxNorm: Oral No Start Date 01/12/2014 Inactive primidone 50 mg tablet RxNorm: 958174 2 Tablet(s) PO QAM and 1 tablet at HS No Start Date 02/17/2019 Inactive hydrocodone-acetaminophen 10 mg-325 mg Tab RxNorm: 9435398 1-2 T ablet(s) PO QID No Start Date 02/13/2011 Inactive Ultram 50 mg tablet RxNorm: 929128 1-2 Tablet(s) PO QID as need ed for pain No Start Date 09/18/2012 Inactive Effient 10 mg Tab RxNorm: 700331 1 Tablet(s) PO QD No Start Date 01/2012 Inactive Bevespi Aerosphere 9 mcg-4.8 mcg HFA aerosol inhaler RxNorm: 0682317 2 Puff(s) INH BID No Start Date 10/29/2017 Inactive Neurontin Oral RxNorm: Oral No Start Date 01/12/2010 Inactive primidone 50 mg tablet RxNorm: 190591 1 Tablet(s) PO QD No Start Da te 01/12/2019 Inactive Chantix Starting Month Box 0.5 mg (11)-1 mg (42) Tabs in a Dose Pack RxNorm: 661500 Tablet(s) PO No Start Date 03/31/2012 Inactive atenolol 25 mg Tab RxNorm: 699960 1 Tablet(s) PO QD No Start Date 02/2012 Inactive Neurontin 600 mg Tab RxNorm: 504449 1 Tablet(s) PO QD No Start Date 0 03/16/2010 Inactive Nucynta 50 mg tablet RxNorm: 631660 1-2 Tablet(s) PO Q6H as nee ded for pain No Start Date 12/31/2012 Inactive simvastatin 40 mg Tab RxNorm: 402206 1 Tablet(s) PO QD No Start Date 03/21/2012 Inactive Medication Administered No Medication Administered data Immunizations Vaccine Codes Date Status Influenza CVX: 135 07/04/2017 Complete Results Observation Observation Code Item Item Code Result Date S [facility] Location COMPLETE BLOOD COUNT [id number] WBC 4.9 10e9/L 09/30/19 20 Unknown COMPLETE BLOOD COUNT [id number] RBC 4.65 10e12/L 2019 Unknown COMPLETE BLOOD COUNT [id number] HEMOGLOBIN 13.8 g/dL 09/30/19 20 Unknown COMPLETE BLOOD COUNT [id number] HEMATOCRIT 42.3 % 09/30/19 20 Unknown COMPLETE BLOOD COUNT [id number] MCV 91.0 fL 0 Unknown COMPLETE BLOOD COUNT [id number] MCH 29.7 pg 0 Unknown COMPLETE BLOOD COUNT 2161941 MCHC 32.6 g/dL 0 Unknown COMPLETE BLOOD COUNT [id number] PLATELET COUNT 230 10e9/L Unknown COMPLETE BLOOD COUNT 4540183 Mean Plt Volume 9.9 fL Unknown COMPLETE BLOOD COUNT 0907009 Neut Auto 52.5 % 0 Unknown COMPLETE BLOOD COUNT [id number] Lymph Auto 30.8 % 09/30/19 20 Unknown COMPLETE BLOOD COUNT [id number] [place] Auto 11.2 % 0 Unknown COMPLETE BLOOD COUNT [id number] RDW 13.5 % 0 Unknown COMPLETE BLOOD COUNT [id number] Eos Auto 5.1 % 0 Unknown COMPLETE BLOOD COUNT 7825515 Baso Auto 0.4 % 0 Unknown COMPLETE BLOOD COUNT [id number] Neutrophil Abs 2.57 10e9/L Unknown COMPLETE BLOOD COUNT [id number] Lymphocyte Abs 1.51 10e9/L Unknown COMPLETE BLOOD COUNT [id number] Monocyte Abs 0.55 10e9/L 09/17 Unknown COMPLETE BLOOD COUNT [id number] Eosinophil Abs 0.25 10e9/L Unknown COMPLETE BLOOD COUNT [id number] RDW-SD 43.9 fL 0 Unknown COMPLETE BLOOD COUNT [id number] Basophil Abs 0.02 10e9/L 09/17 Unknown GFR CALC 9897601 GFR Non Afr Amr >60 mL/min 09/30/2019 Un known GFR CALC 1614453 GFR Afr Amr >60 mL/min 09/30/2019 Unknow n THYROID STIMULATING HORMONE 07488 TSH 1.129 uIU/mL 09/30/2019 Unknown PSA EQUIMOLAR BARBIE 85938 PSA Total 0.77 ng/mL 0 Unknown L[facility] 47998 Cholesterol 192 mg/dL 09/30/2019 Unkno wn L[facility] GROUP 53686 Triglyceride 86 mg/dL 09/30/2019 Unkn own LIPID GROUP 94900 HDL CHOLESTEROL 64 mg/dL 09/30/2019 U nknown LIPID GROUP 83880 Chol/HDL Ratio 3.00 ratio 09/30/2019 U nknown LIP[facility] GROUP 47231 NON-HDL Chol 128 mg/dL 09/30/2019 Unkn own LIP[facility] GROUP 94234 LDL Cholesterol 111 mg/dL 09/30/2019 U nknown COMPREHENSIVE METABOLIC 15789 AST 17 U/L 2019 Unknown COMPREHENSIVE METABOLIC 22977 ALT 10 U/L 2019 Unknown COMPREHENSIVE METABOLIC 61219 BUN 13 mg/dL 2019 Unknown COMPREHENSIVE METABOLIC 45070 ALBUMIN 4.3 g/dL 2019 Unknown COMPREHENSIVE METABOLIC 17860 CHLORIDE 102 mmol/L 09/30 Unknown COMPREHENSIVE METABOLIC 13863 Bili Total 0.6 mg/dL 09/30 Unknown COMPREHENSIVE METABOLIC 20263 ALK PHOS 91 U/L 2019 Unknown COMPREHENSIVE METABOLIC 45701 SODIUM 138 mmol/L 09/30 Unknown COMPREHENSIVE METABOLIC 28919 CREATININE 1.09 mg/dL 09/17 Unknown COMPREHENSIVE METABOLIC 89624 CALCIUM 9.0 mg/dL 2019 Unknown COMPREHENSIVE METABOLIC 17784 POTASSIUM 4.5 mmol/L 09/30 Unknown COMPREHENSIVE METABOLIC 36390 Total Protein 6.8 g/dL Unknown COMPREHENSIVE METABOLIC 61890 Glucose 91 mg/dL 2019 Unknown COMPREHENSIVE METABOLIC 34709 Bicarbonate 28 mmol/L 09/17 Unknown COMPREHENSIVE METABOLIC 02239 AGAP 8 mmol/L 2019 Unknown COMPLETE BLOOD COUNT [id number] WBC 4.9 10e9/L 09/04/20 18 Unknown COMPLETE BLOOD COUNT [id number] RBC 4.42 10e12/L 2017 Unknown COMPLETE BLOOD COUNT 5015854 HEMOGLOBIN 13.4 g/dL 09/04/20 18 Unknown COMPLETE BLOOD COUNT [id number] HEMATOCRIT 40.5 % 09/04/20 18 Unknown COMPLETE BLOOD COUNT [id number] MCV 91.6 fL 8 Unknown COMPLETE BLOOD COUNT 4761358 MCH 30.3 pg 8 Unknown COMPLETE BLOOD COUNT 1815825 MCHC 33.1 g/dL 8 Unknown COMPLETE BLOOD COUNT 3272106 PLATELET COUNT 224 10e9/L Unknown COMPLETE BLOOD COUNT 4164843 Mean Plt Volume 9.9 fL Unknown COMPLETE BLOOD COUNT 5097783 Neut Auto 60.8 % 8 Unknown COMPLETE BLOOD COUNT [id number] Lymph Auto 26.8 % 09/04/20 18 Unknown COMPLETE BLOOD COUNT [id number] [place] Auto 10.4 % 8 Unknown COMPLETE BLOOD COUNT [id number] RDW 12.8 % 8 Unknown COMPLETE BLOOD COUNT [id number] Eos Auto 1.6 % 8 Unknown COMPLETE BLOOD COUNT 9397632 Baso Auto 0.4 % 8 Unknown COMPLETE BLOOD COUNT 9059711 Neutrophil Abs 2.98 10e9/L Unknown COMPLETE BLOOD COUNT [id number] Lymphocyte Abs 1.31 10e9/L Unknown COMPLETE BLOOD COUNT [id number] Monocyte Abs 0.51 10e9/L 08/17 Unknown COMPLETE BLOOD COUNT [id number] Eosinophil Abs 0.08 10e9/L Unknown COMPLETE BLOOD COUNT 6606287 RDW-SD 41.6 fL 8 Unknown COMPLETE BLOOD COUNT [id number] Basophil Abs 0.02 10e9/L 08/17 Unknown COMPREHENSIVE METABOLIC 67849 AST 16 U/L 2017 Unknown COMPREHENSIVE METABOLIC 26537 ALT 8 U/L 2017 Unknown COMPREHENSIVE METABOLIC 45442 BUN 12 mg/dL 2017 Unknown COMPREHENSIVE METABOLIC 50758 ALBUMIN 4.4 g/dL 2017 Unknown COMPREHENSIVE METABOLIC 36485 CHLORIDE 107 mmol/L 09/04 Unknown COMPREHENSIVE METABOLIC 45439 Bili Total 1.0 mg/dL 09/04 Unknown COMPREHENSIVE METABOLIC 79391 ALK PHOS 58 U/L 2017 Unknown COMPREHENSIVE METABOLIC 42965 SODIUM 142 mmol/L 09/04 Unknown COMPREHENSIVE METABOLIC 14726 CREATININE 0.97 mg/dL 08/17 Unknown COMPREHENSIVE METABOLIC 87274 CALCIUM 9.2 mg/dL 2017 Unknown COMPREHENSIVE METABOLIC 08673 POTASSIUM 4.6 mmol/L 09/04 Unknown COMPREHENSIVE METABOLIC 71058 Total Protein 6.5 g/dL Unknown COMPREHENSIVE METABOLIC 84318 Glucose 96 mg/dL 2017 Unknown COMPREHENSIVE METABOLIC 38361 Bicarbonate 29 mmol/L 08/17 Unknown COMPREHENSIVE METABOLIC 11233 AGAP 6 mmol/L 2017 Unknown LIPID GROUP 48895 Cholesterol 182 mg/dL 09/04/2018 Unkno wn LIP[facility] GROUP 38490 Triglyceride 84 mg/dL 09/04/2018 Unkn own LIPID GROUP 99616 HDL CHOLESTEROL 76 mg/dL 09/04/2018 U nknown LIPID GROUP 92882 Chol/HDL Ratio 2.39 ratio 09/04/2018 U nknown LIPID GROUP 67282 NON-HDL Chol 106 mg/dL 09/04/2018 Unkn own LIPID GROUP 25942 LDL Cholesterol 89 mg/dL 09/04/2018 U nknown GFR CALC 8726067 GFR Non Afr Amr >60 mL/min 09/04/2018 Un known GFR CALC 5981282 GFR Afr Amr >60 mL/min 09/04/2018 Unknow n THYROID STIMULATING HORMONE 47213 TSH 0.713 uIU/mL 09/04/2018 Unknown PSA EQUIMOLAR BARBIE 01976 PSA Total 0.66 ng/mL 8 Unknown A FOOD C P 7494434 [place] Cl Class 0 11/17/2017 Unknown A FOOD C P 8971576 [place] Ct <0.35 kU/L 11/17/2017 Unknow n A FOOD C P 3614112 [place] Cl Class 0 11/17/2017 Unkn own A FOOD C P 7772414 [place] <0.35 kU/L 11/17/2017 Unk nown A FOOD C P 8465455 Egg White Cl Class 0 11/17/2017 Unkno wn A FOOD C P 5805576 Egg White Ct <0.35 kU/L 11/17/2017 Unkn own A FOOD C P 3279257 Egg Yolk Cl Class 0 11/17/2017 Unknow n A FOOD C P 6714756 Egg Yolk Ct <0.35 kU/L 11/17/2017 Unkno wn A FOOD C P 6652282 Cow Milk Cl Class 0 11/17/2017 Unknow n A FOOD C P 5194438 Cow Milk Ct <0.35 kU/L 11/17/2017 Unkno wn A FOOD C P 3636291 Peanut Cl Class 0 11/17/2017 Unknown A FOOD C P 2312102 Peanut Ct <0.35 kU/L 11/17/2017 Unknown A FOOD C P 5667655 Shrimp Cl Class 0 11/17/2017 Unknown A FOOD C P 5516853 Shrimp Ct <0.35 kU/L 11/17/2017 Unknown A FOOD C P 4607051 [place] Cl Class 0 11/17/2017 Unknown A FOOD C P 6110532 [place] Ct <0.35 kU/L 11/17/2017 Unknow n A FOOD C P 3377369 Wheat Cl Class 0 11/17/2017 Unknown A FOOD C P 7198320 Wheat Ct <0.35 kU/L 11/17/2017 Unknown A FOOD C P 2923656 Potato Cl Class 0 11/17/2017 Unknown A FOOD C P 6182369 Potato Ct <0.35 kU/L 11/17/2017 Unknown A FOOD C P 2700667 Beef Cl Class 2 11/17/2017 Unknown A FOOD C P 9625664 Beef Ct 0.88 kU/L 11/17/2017 Unknown A FOOD C P 1928569 [place] Cl Class 0 11/17/2017 Unknown A FOOD C P 9933206 [place] Ct <0.35 kU/L 11/17/2017 Unknown A FOOD C P 7768942 Pork Cl Class 0 11/17/2017 Unknown A FOOD C P 6536729 [place] Ct <0.35 kU/L 11/17/2017 Unknown A FOOD C P 4353947 [place] Cl Class 0 11/17/2017 Unknown A FOOD C P 7869096 [place] Ct <0.35 kU/L 11/17/2017 Unknown A FOOD C P 8418617 [place] Cl Class 0 11/17/2017 Unkn own A FOOD C P 5038527 [place] Ct <0.35 kU/L 11/17/2017 Unk nown A FOOD C P 4652829 [place] Cl Class 0 11/17/2017 Unknown A FOOD C P 6606921 [place] Ct <0.35 kU/L 11/17/2017 Unknown A FOOD C P 5645163 [place] Cl Class 0 11/17/2017 Unknown A FOOD C P 1958411 [place] Ct <0.35 kU/L 11/17/2017 Unknown A FOOD C P 4571079 [place] CL Class 0 11/17/2017 Unknown A FOOD C P 5450373 [place] <0.35 kU/L 11/17/2017 Unknown A FOOD C P 8322466 [place] Cl Class 0 11/17/2017 Unknown A FOOD C P 0231799 [place] Ct <0.35 kU/L 11/17/2017 Unknown A FOOD C P 0001559 Oat Cl Class 0 11/17/2017 Unknown A FOOD C P 1082621 Oat Ct <0.35 kU/L 11/17/2017 Unknown A FOOD C P 7278474 [place] Cl Class 0 11/17/2017 Unknown A FOOD C P 2671267 [place] Ct <0.35 kU/L 11/17/2017 Unknown A FOOD C P 5091100 [place] Meat CL Class 0 11/17/2017 Un known A FOOD C P 9760454 Chicken Meat Ct <0.35 kU/L 11/17/2017 U nknown A FOOD C P 2423316 [place] Cl Class 0 11/17/2017 Unknown A FOOD C P 6315731 [place] Ct <0.35 kU/L 11/17/2017 Unknown A FOOD C P 7629305 [place] Meat Cl Class 0 11/17/2017 Unkn own A FOOD C P 6189702 [place] Ct <0.35 kU/L 11/17/2017 Unk nown A NUTS PNL 3463246 Peanut Cl Class 0 11/17/2017 Unknown A NUTS PNL 0900786 Peanut Ct <0.35 kU/L 11/17/2017 Unknown A NUTS PNL 6095464 [place] Meat Cl Class 0 11/17/2017 Unk nown A NUTS PNL [id number] [place] [facility] <0.35 kU/L 11/17/2017 Un known A NUTS PNL 9313070 [place] Cl Class 0 11/17/2017 Unkn own A NUTS PNL 8336139 [place] Ct <0.35 kU/L 11/17/2017 Unk nown A NUTS PNL 9378317 [place] Cl Class 0 11/17/2017 Unknown A NUTS PNL 1782403 [place] Ct <0.35 kU/L 11/17/2017 Unknown A NUTS PNL 2783731 [place] Cl Class 0 11/17/2017 Unknow n A NUTS PNL 4881092 [place] Ct <0.35 kU/L 11/17/2017 Unkno wn A NUTS PNL 5725573 [place] Cl Class 0 11/17/2017 Unkno wn A NUTS PNL 4564000 [place] Ct <0.35 kU/L 11/17/2017 Unkn own A NUTS PNL 0510530 [place] Cl Class 0 11/17/2017 Unknown A NUTS PNL 5294210 [place] Ct <0.35 kU/L 11/17/2017 Unknown A NUTS PNL 7188884 [place] Cl Class 0 11/17/2017 Unkno wn A NUTS PNL 0954061 [place] Ct <0.35 kU/L 11/17/2017 Unkn own A NUTS PNL 0086754 Allergen Interp See Note 11/17/2017 Un known A FRT/VG P 1311730 [place] Cl Class 0 11/17/2017 Unkn own A FRT/VG P 3498102 [place] <0.35 kU/L 11/17/2017 Unk nown A FRT/VG P 8790094 [place] Cl Class 0 11/17/2017 Unknown A FRT/VG P 3770115 [place] Ct <0.35 kU/L 11/17/2017 Unknown A FRT/VG P [id number] [place] Cl Class 0 11/17/2017 Unkn own A FRT/VG P 4940980 [place] <0.35 kU/L 11/17/2017 Unk nown A FRT/VG P 1990215 [place] Cl Class 0 11/17/2017 Unknown A FRT/VG P 2286495 [place] Ct <0.35 kU/L 11/17/2017 Unknown A FRT/VG P 1609784 [place] Cl Class 0 11/17/2017 Unknown A FRT/VG P 1892425 [place] Ct <0.35 kU/L 11/17/2017 Unknown A FRT/VG P 9292854 [place] Cl Class 1 11/17/2017 Unknown A FRT/VG P 5282404 [place] Ct 0.48 kU/L 11/17/2017 Unknown A FRT/VG P 7943268 [place] Cl Class 0 11/17/2017 Unk nown A FRT/VG P 5387516 [place] [facility] <0.35 kU/L 11/17/2017 Un known A FRT/VG P 2358788 [place] Fruit Cl Class 0 11/17/2017 Unk nown A FRT/VG P 0315435 [place] Ct <0.35 kU/L 11/17/2017 Un known A FRT/VG P 5035732 [place] Cl Class 0 11/17/2017 Unknown A FRT/VG P 6043463 [place] Ct <0.35 kU/L 11/17/2017 Unknown A FRT/VG P 6889945 [place] Cl Class 0 11/17/2017 Unknown A FRT/VG P 7585051 [place] Ct <0.35 kU/L 11/17/2017 Unknown A FRT/VG P 6774303 [place] Fruit Cl Class 0 11/17/2017 Unkn own A FRT/VG P 1691140 [place] Ct <0.35 kU/L 11/17/2017 Unk nown A FRT/VG P 5595908 Swt [place] Cl Class 0 11/17/2017 Unkn own A FRT/VG P 5054779 Swt [place] Ct <0.35 kU/L 11/17/2017 Unk nown THYROID STIMULATING HORMONE 16553 TSH 1.371 uIU/mL 09/03/2017 Unknown FREE T4 08309 T4 Free 1.26 ng/dL 09/03/2017 Unknown ASSAY TRIIODOTHYRONINE (T3) 65074 T3 Total 0.9 ng/mL Unknown COMPLETE BLOOD COUNT 0202042 WBC 5.9 10e9/L 07/31/20 17 Unknown COMPLETE BLOOD COUNT [id number] RBC 4.64 10e12/L 2016 Unknown COMPLETE BLOOD COUNT [id number] HEMOGLOBIN 14.2 g/dL 07/31/20 17 Unknown COMPLETE BLOOD COUNT 1728898 HEMATOCRIT 42.1 % 07/31/20 17 Unknown COMPLETE BLOOD COUNT [id number] MCV 90.7 fL 7 Unknown COMPLETE BLOOD COUNT 1556370 MCH 30.6 pg 7 Unknown COMPLETE BLOOD COUNT 3520515 MCHC 33.7 g/dL 7 Unknown COMPLETE BLOOD COUNT [id number] PLATELET COUNT 195 10e9/L Unknown COMPLETE BLOOD COUNT 7690529 Mean Plt Volume 10.0 fL Unknown COMPLETE BLOOD COUNT 9959577 Neut Auto 47.5 % 7 Unknown COMPLETE BLOOD COUNT 9465560 Lymph Auto 37.4 % 07/31/20 17 Unknown COMPLETE BLOOD COUNT 4916011 [place] Auto 11.7 % 7 Unknown COMPLETE BLOOD COUNT 7457415 Eos Auto 3.2 % 7 Unknown COMPLETE BLOOD COUNT 1452648 RDW 12.8 % 7 Unknown COMPLETE BLOOD COUNT 1315113 Baso Auto 0.2 % 7 Unknown COMPLETE BLOOD COUNT 4275852 Neutrophil Abs 2.80 10e9/L Unknown COMPLETE BLOOD COUNT 9892106 Lymphocyte Abs 2.21 10e9/L Unknown COMPLETE BLOOD COUNT 6034700 Monocyte Abs 0.69 10e9/L 07/18 Unknown COMPLETE BLOOD COUNT 6414734 Eosinophil Abs 0.19 10e9/L Unknown COMPLETE BLOOD COUNT 8621968 RDW-SD 41.6 fL 7 Unknown COMPLETE BLOOD COUNT [id number] Basophil Abs 0.01 10e9/L 07/18 Unknown LIPID GROUP 64197 Cholesterol 186 mg/dL 07/31/2017 Unkno wn LIPID GROUP 44817 Triglyceride 129 mg/dL 07/31/2017 Unkn own LIPID GROUP 75370 HDL CHOLESTEROL 79 mg/dL 07/31/2017 U nknown LIPID GROUP 51223 Chol/HDL Ratio 2.35 ratio 07/31/2017 U nknown LIPID GROUP 37832 NON-HDL Chol 107 mg/dL 07/31/2017 Unkn own LIPID GROUP 53340 LDL Cholesterol 81 mg/dL 07/31/2017 U nknown GFR CALC 6016841 GFR Non Afr Amr >60 mL/min 07/31/2017 Un known GFR CALC 4991091 GFR Afr Amr >60 mL/min 07/31/2017 Unknow n COMPREHENSIVE METABOLIC 94791 AST 19 U/L 2016 Unknown COMPREHENSIVE METABOLIC 29255 ALT 12 U/L 2016 Unknown COMPREHENSIVE METABOLIC 34059 BUN 15 mg/dL 2016 Unknown COMPREHENSIVE METABOLIC 96590 ALBUMIN 4.4 g/dL 2016 Unknown COMPREHENSIVE METABOLIC 50686 CHLORIDE 102 mmol/L 07/31 Unknown COMPREHENSIVE METABOLIC 01204 Bili Total 0.9 mg/dL 07/31 Unknown COMPREHENSIVE METABOLIC 86417 ALK PHOS 53 U/L 2016 Unknown COMPREHENSIVE METABOLIC 63297 SODIUM 138 mmol/L 07/31 Unknown COMPREHENSIVE METABOLIC 29151 CREATININE 1.06 mg/dL 07/18 Unknown COMPREHENSIVE METABOLIC 71322 CALCIUM 9.3 mg/dL 2016 Unknown COMPREHENSIVE METABOLIC 09875 POTASSIUM 4.0 mmol/L 07/31 Unknown COMPREHENSIVE METABOLIC 65503 Total Protein 6.8 g/dL Unknown COMPREHENSIVE METABOLIC 17352 Glucose 86 mg/dL 2016 Unknown COMPREHENSIVE METABOLIC 57278 Bicarbonate 28 mmol/L 07/18 Unknown COMPREHENSIVE METABOLIC 23055 AGAP 8 mmol/L 2016 Unknown COMPREHENSIVE METABOLIC 52489 AST 18 U/L 2015 Unknown COMPREHENSIVE METABOLIC 36275 ALT 9 U/L 2015 Unknown COMPREHENSIVE METABOLIC 58713 BUN 11 mg/dL 2015 Unknown COMPREHENSIVE METABOLIC 33073 ALBUMIN 4.2 g/dL 2015 Unknown COMPREHENSIVE METABOLIC 15571 CHLORIDE 104 mmol/L 05/19 Unknown COMPREHENSIVE METABOLIC 96357 Bili Total 1.2 mg/dL 05/19 Unknown COMPREHENSIVE METABOLIC 25904 ALK PHOS 54 U/L 2015 Unknown COMPREHENSIVE METABOLIC 97124 SODIUM 140 mmol/L 05/19 Unknown COMPREHENSIVE METABOLIC 39063 CREATININE 1.03 mg/dL 10/2015 Unknown COMPREHENSIVE METABOLIC 90869 CALCIUM 9.3 mg/dL 2015 Unknown COMPREHENSIVE METABOLIC 26511 POTASSIUM 4.9 mmol/L 05/19 Unknown COMPREHENSIVE METABOLIC 00277 Total Protein 6.7 g/dL Unknown COMPREHENSIVE METABOLIC 80813 Glucose 92 mg/dL 2015 Unknown COMPREHENSIVE METABOLIC 56210 Bicarbonate 28 mmol/L 10/2015 Unknown COMPREHENSIVE METABOLIC 42778 AGAP 8 mmol/L 2015 Unknown THYROID STIMULATING HORMONE 15658 TSH 1.545 uIU/mL 05/19/2016 Unknown GFR CALC 9213946 GFR Non Afr Amr >60 mL/min 05/19/2016 Un known GFR CALC 9484976 GFR Afr Amr >60 mL/min 05/19/2016 Unknow n VITAMIN B 12 70376 VITAMIN B12 298 pg/mL 05/19/2016 Unkn own COMPLETE BLOOD COUNT [id number] WBC 5.2 10e9/L 05/19/20 16 Unknown COMPLETE BLOOD COUNT 8300802 RBC 4.34 10e12/L 2015 Unknown COMPLETE BLOOD COUNT 4129819 HEMOGLOBIN 12.9 g/dL 05/19/20 16 Unknown COMPLETE BLOOD COUNT [id number] HEMATOCRIT 38.9 % 05/19/20 16 Unknown COMPLETE BLOOD COUNT 6679127 MCV 89.6 fL 6 Unknown COMPLETE BLOOD COUNT 5247180 MCH 29.7 pg 6 Unknown COMPLETE BLOOD COUNT 5920802 MCHC 33.2 g/dL 6 Unknown COMPLETE BLOOD COUNT 8717954 PLATELET COUNT 200 10e9/L 10/2015 Unknown COMPLETE BLOOD COUNT 0185715 Mean Plt Volume 10.1 fL 10/2015 Unknown COMPLETE BLOOD COUNT 2577679 Neut Auto 45.4 % 6 Unknown COMPLETE BLOOD COUNT 1576623 Lymph Auto 35.6 % 05/19/20 16 Unknown COMPLETE BLOOD COUNT 9118184 [place] Auto 11.9 % 6 Unknown COMPLETE BLOOD COUNT 7621247 RDW 12.7 % 6 Unknown COMPLETE BLOOD COUNT 9552195 Eos Auto 6.7 % 6 Unknown COMPLETE BLOOD COUNT 5835107 Baso Auto 0.4 % 6 Unknown COMPLETE BLOOD COUNT 4273872 Neutrophil Abs 2.36 10e9/L Unknown COMPLETE BLOOD COUNT 2072799 Lymphocyte Abs 1.85 10e9/L Unknown COMPLETE BLOOD COUNT 4853102 Monocyte Abs 0.62 10e9/L 10/2015 Unknown COMPLETE BLOOD COUNT 4160511 Eosinophil Abs 0.35 10e9/L Unknown COMPLETE BLOOD COUNT 1959659 RDW-SD 40.6 fL 6 Unknown COMPLETE BLOOD COUNT 3969337 Basophil Abs 0.02 10e9/L 10/2015 Unknown LIPID GROUP 54796 Cholesterol 197 mg/dL 05/19/2016 Unkno wn LIPID GROUP 78201 Triglyceride 92 mg/dL 05/19/2016 Unkn own LIPID GROUP 81672 HDL CHOLESTEROL 58 mg/dL 05/19/2016 U nknown LIPID GROUP 60732 Chol/HDL Ratio 3.40 ratio 05/19/2016 U nknown LIPID GROUP 43654 NON-HDL Chol 139 mg/dL 05/19/2016 Unkn own LIPID GROUP 15412 LDL Cholesterol 121 mg/dL 05/19/2016 U nknown FREE T4 80468 T4 Free 1.19 ng/dL 05/19/2016 Unknown COMPREHENSIVE METABOLIC 85192 AST 19 U/L 2014 Unknown COMPREHENSIVE METABOLIC 98545 ALT 10 IU/L 2014 Unknown COMPREHENSIVE METABOLIC 32014 BUN 20 MG/DL 2014 Unknown COMPREHENSIVE METABOLIC 87433 ALBUMIN 4.4 GM/DL 2014 Unknown COMPREHENSIVE METABOLIC 53706 CHLORIDE 104 MMOL/L 04/05 Unknown COMPREHENSIVE METABOLIC 56795 BILI TOT 2.2 MG/DL 2014 Unknown COMPREHENSIVE METABOLIC 73157 ALK PHOS 55 U/L 2014 Unknown COMPREHENSIVE METABOLIC 40604 SODIUM 138 MMOL/L 04/05 Unknown COMPREHENSIVE METABOLIC 74579 CREATININE 1.04 MG/DL 03/18 Unknown COMPREHENSIVE METABOLIC 29213 CALCIUM 9.3 MG/DL 2014 Unknown COMPREHENSIVE METABOLIC 67431 POTASSIUM 4.5 MMOL/L 04/05 Unknown COMPREHENSIVE METABOLIC 49029 PROT TOT 6.7 GM/DL 2014 Unknown COMPREHENSIVE METABOLIC 49872 Glucose 77 MG/DL 2014 Unknown COMPREHENSIVE METABOLIC 47609 BICARB 25 MMOL/L 2014 Unknown COMPREHENSIVE METABOLIC 38105 ANION GAP 9 MEQ/L 2014 Unknown GFR CALC 3098922 GFR AA >60 ML/MIN 04/05/2015 Unknown GFR CALC 4086074 GFR NON-AA >60 ML/MIN 04/05/2015 Unknown LIPID GROUP 01898 HDL TEST 60 MG/DL 04/05/2015 Unknown LIPID GROUP 84214 TRIG 70 MG/DL 04/05/2015 Unknown LIPID GROUP 95672 TEST LDL 137 MG/DL 04/05/2015 Unknown LIPID GROUP 94980 CHOL 211 MG/DL 04/05/2015 Unknown LIPID GROUP 44928 RCHOL/HDL 3.52 RATIO 04/05/2015 Unknow n LIPID GROUP 22876 NON-HDL CH 151 MG/DL 04/05/2015 Unknow n COMPLETE BLOOD COUNT 1456905 WBC 5.3 10e9/L 04/05/20 15 Unknown COMPLETE BLOOD COUNT 5636900 RBC 4.42 10e12/L 2014 Unknown COMPLETE BLOOD COUNT 3086669 HGB 13.4 g/dL 5 Unknown COMPLETE BLOOD COUNT 4629331 HCT DET 39.6 % 5 Unknown COMPLETE BLOOD COUNT 9670262 MCV 89.6 fL 5 Unknown COMPLETE BLOOD COUNT 3427813 MCH 30.3 pg 5 Unknown COMPLETE BLOOD COUNT 4223334 MCHC 33.8 g/dL 5 Unknown COMPLETE BLOOD COUNT 1606003 PLT 201 10e9/L 04/05/20 15 Unknown COMPLETE BLOOD COUNT 3431095 MPV 10.3 fL 5 Unknown COMPLETE BLOOD COUNT 8126732 LUPE % 56.4 % 5 Unknown COMPLETE BLOOD COUNT 2255531 LY % 24.8 % 5 Unknown COMPLETE BLOOD COUNT 8530490 MON % 12.8 % 5 Unknown COMPLETE BLOOD COUNT 0109345 EOS % 5.4 % 5 Unknown COMPLETE BLOOD COUNT 7018408 BASO % 0.6 % 5 Unknown COMPLETE BLOOD COUNT 6044647 RDW 13.2 % 5 Unknown COMPLETE BLOOD COUNT 2467561 ABS LUPE 2.99 10e9/L 015 Unknown COMPLETE BLOOD COUNT 2826878 ABS LYMPH 1.31 10e9/L 015 Unknown COMPLETE BLOOD COUNT [id number] ABS MONO 0.68 10e9/L 015 Unknown COMPLETE BLOOD COUNT 3564791 ABS EOS 0.29 10e9/L 015 Unknown COMPLETE BLOOD COUNT 9248715 ABS BASO 0.03 10e9/L 015 Unknown COMPLETE BLOOD COUNT 8797087 RDW-SD 42.3 fL 5 Unknown LIPID GROUP 62430 HDL TEST 51 MG/DL 07/19/2012 Unknown LIPID GROUP 93148 TRIG 129 MG/DL 07/19/2012 Unknown LIPID GROUP 19875 TEST LDL 98 MG/DL 07/19/2012 Unknown LIPID GROUP 33921 CHOL 175 MG/DL 07/19/2012 Unknown LIPID GROUP 45043 RCHOL/HDL 3.43 RATIO 07/19/2012 Unknow n COMPREHENSIVE METABOLIC 70434 AST 18 U/L 2011 Unknown COMPREHENSIVE METABOLIC 41002 ALT 12 IU/L 2011 Unknown COMPREHENSIVE METABOLIC 06286 BUN 10 MG/DL 2011 Unknown COMPREHENSIVE METABOLIC 00432 ALBUMIN 4.1 GM/DL 2011 Unknown COMPREHENSIVE METABOLIC 18907 CHLORIDE 103 MMOL/L 07/19 Unknown COMPREHENSIVE METABOLIC 28287 BILI TOT 0.9 MG/DL 2011 Unknown COMPREHENSIVE METABOLIC 88581 ALK PHOS 62 U/L 2011 Unknown COMPREHENSIVE METABOLIC 22120 SODIUM 138 MMOL/L 07/19 Unknown COMPREHENSIVE METABOLIC 04312 CREATININE 1.08 MG/DL 10/2011 Unknown COMPREHENSIVE METABOLIC 65984 CALCIUM 9.1 MG/DL 2011 Unknown COMPREHENSIVE METABOLIC 37716 POTASSIUM 4.2 MMOL/L 07/19 Unknown COMPREHENSIVE METABOLIC 27502 PROT TOT 6.7 GM/DL 2011 Unknown COMPREHENSIVE METABOLIC 10885 Glucose 101 MG/DL 2011 Unknown COMPREHENSIVE METABOLIC 88929 BICARB 27 MMOL/L 2011 Unknown COMPREHENSIVE METABOLIC 51775 ANION GAP 8 MEQ/L 2011 Unknown GFR CALC [id number] GFR AA >60 ML/MIN 07/19/2012 Unknown GFR CALC [id number] GFR NON-AA >60 ML/MIN 07/19/2012 Unknown Procedures Procedure Codes Date ROUTINE VENIPUNCTURE CPT-4: 57842 09/30/2019 COMPREHEN METABOLIC PANEL CPT-4: 59593 09/30/2019 COMPLETE CBC W/AUTO DIFF WBC CPT-4: 31095 09/30/2019 ASSAY OF PSA TOTAL CPT-4: 81538 09/30/2019 ASSAY THYROID STIM HORMONE CPT-4: 57279 09/30/2019 LIPID PANEL CPT-4: 05360 09/30/2019 ROUTINE VENIPUNCTURE CPT-4: 92302 09/24/2019 COMPLETE CBC W/AUTO DIFF WBC CPT-4: 10702 09/24/2019 COMPREHEN METABOLIC PANEL CPT-4: 20393 09/24/2019 LIPID PANEL CPT-4: 34634 09/24/2019 ASSAY THYROID STIM HORMONE CPT-4: 41522 09/24/2019 THER/PROPH/DIAG INJ SC/IM CPT-4: 56771 01/13/2019 TRIAMCINOLONE ACET INJ NOS CPT-4: J3301 01/13/2019 DEXAMETHASONE SODIUM PHOS CPT-4: J1100 01/13/2019 ROUTINE VENIPUNCTURE CPT-4: 34139 09/04/2018 COMPREHEN METABOLIC PANEL CPT-4: 52679 09/04/2018 COMPLETE CBC W/AUTO DIFF WBC CPT-4: 81752 09/04/2018 LIPID PANEL CPT-4: 90347 09/04/2018 ASSAY OF PSA TOTAL CPT-4: 50664 09/04/2018 ASSAY THYROID STIM HORMONE CPT-4: 70674 09/04/2018 URINALYSIS NONAUTO W/O SCOPE CPT-4: 71379 05/15/2018 ROUTINE VENIPUNCTURE CPT-4: 86245 11/16/2017 A FRT/VG P CPT-4: 0407080 11/16/2017 A FOOD C P CPT-4: 8737182 11/16/2017 A NUTS PNL CPT-4: 7981067 11/16/2017 THER/PROPH/DIAG INJ SC/IM CPT-4: 07809 11/06/2017 TRIAMCINOLONE ACET INJ NOS CPT-4: J3301 11/06/2017 DEXAMETHASONE SODIUM PHOS CPT-4: J1100 11/06/2017 ROUTINE VENIPUNCTURE CPT-4: 21179 09/03/2017 ASSAY OF FREE THYROXINE CPT-4: 37204 09/03/2017 ASSAY THYROID STIM HORMONE CPT-4: 27784 09/03/2017 ASSAY TRIIODOTHYRONINE (T3) CPT-4: 95796 09/03/2017 ROUTINE VENIPUNCTURE CPT-4: 58691 07/31/2017 COMPREHEN METABOLIC PANEL CPT-4: 44364 07/31/2017 COMPLETE CBC W/AUTO DIFF WBC CPT-4: 57791 07/31/2017 LIPID PANEL CPT-4: 68048 07/31/2017 FLU VACC PRSV FREE INC ANTIG 65 AND OLDER CPT-4: 72992 07/04/2017 ADMIN INFLUENZA VIRUS VAC CPT-4: G0008 07/04/2017 ROUTINE VENIPUNCTURE CPT-4: 55734 02/26/2017 ASSAY THYROID STIM HORMONE CPT-4: 37021 02/26/2017 COMPREHEN METABOLIC PANEL CPT-4: 98264 02/26/2017 COMPLETE CBC W/AUTO DIFF WBC CPT-4: 53880 02/26/2017 LIPID PANEL CPT-4: 30439 02/26/2017 ASSAY OF PSA TOTAL CPT-4: 35764 02/26/2017 FLUZONE, 5ML (Medicare) CPT-4: Q2038 06/28/2016 ADMIN INFLUENZA VIRUS VAC CPT-4: G0008 06/28/2016 ROUTINE VENIPUNCTURE CPT-4: 91862 05/19/2016 ASSAY OF FREE THYROXINE CPT-4: 43645 05/19/2016 ASSAY THYROID STIM HORMONE CPT-4: 49964 05/19/2016 COMPREHEN METABOLIC PANEL CPT-4: 98456 05/19/2016 COMPLETE CBC W/AUTO DIFF WBC CPT-4: 40177 05/19/2016 LIPID PANEL CPT-4: 47870 05/19/2016 VITAMIN B-12 CPT-4: 16833 05/19/2016 PPPS, initial visit CPT-4: G0438 05/10/2016 ROUTINE VENIPUNCTURE CPT-4: 48818 04/05/2015 ASSAY THYROID STIM HORMONE CPT-4: 19438 04/05/2015 COMPREHEN METABOLIC PANEL CPT-4: 80925 04/05/2015 COMPLETE CBC W/AUTO DIFF WBC CPT-4: 80992 04/05/2015 LIPID PANEL CPT-4: 98308 04/05/2015 ASSAY OF PSA TOTAL CPT-4: 00602 04/05/2015 ROUTINE VENIPUNCTURE CPT-4: 07106 07/19/2012 COMPREHEN METABOLIC PANEL CPT-4: 41226 07/19/2012 LIPID PANEL CPT-4: 83516 07/19/2012 ELECTROCARDIOGRAM COMPLETE CPT-4: 09758 03/22/2012 Vital Signs Date Vital 09/24/2019 Blood Pressure 1: 125/72 Code: 8480-6 BMI: 19.8 Code: 97681-3 Heart Rate 1: 88 bpm Height: 5'11" [...] 1: 102/60 Code: 8480-6 BMI: 19.1 Code: 86763-2 Heart Rate 1: 82 bpm Height: 5'11" Respiratory Rate: 22 bpm SpO2: 97% Tempera ture: 36.4 (C) / 97.6 (F) Weight: 137 lbs 04/25/2018 Blood Pressure 1: 118/64 Code: 8480-6 BMI: 19.2 Code: 89160-0 Heart Rate 1: 98 bpm Height: 5'11" Respiratory Rate: 20 bpm SpO2: 99% Tempera ture: 36.4 (C) / 97.6 (F) Weight: 138 lbs 11/06/2017 Blood Pressure 1: 108/68 Code: 8480-6 BMI: 18.5 Code: 60791-6 Heart Rate 1: 68 bpm Height: 5'11" Respiratory Rate: 20 bpm SpO2: 96% Tempera ture: 36.8 (C) / 98.2 (F) Weight: 133 lbs 09/03/2017 Blood Pressure 1: 122/64 Code: 8480-6 BMI: 17.6 Code: 56202-8 Heart Rate 1: 90 bpm Height: 5'11" Respiratory Rate: 20 bpm SpO2: 98% Tempera ture: 36.4 (C) / 97.6 (F) Weight: 126 lbs 08/21/2017 Blood Pressure 1: 114/80 Code: 8480-6 BMI: 17.9 Code: 80053-8 Heart Rate 1: 80 bpm Height: 5'11" Respiratory Rate: 20 bpm SpO2: 95% Tempera ture: 36.6 (C) / 97.9 (F) Weight: 128 lbs 02/13/2017 Blood Pressure 1: 122/60 Code: 8480-6 BMI: 18.5 Code: 41861-6 Heart Rate 1: 76 bpm Height: 5'11" Respiratory Rate: 20 bpm SpO2: 96% Tempera ture: 36.9 (C) / 98.4 (F) Weight: 133 lbs 11/23/2016 Blood Pressure 1: 126/70 Code: 8480-6 BMI: 18.5 Code: 35983-2 Heart Rate 1: 100 bpm Height: 5'11" Respiratory Rate: 20 bpm SpO2: 96% Tempera ture: 37.1 (C) / 98.8 (F) Weight: 133 lbs 05/23/2016 Blood Pressure 1: 128/82 Code: 8480-6 BMI: 18.5 Code: 77318-3 Heart Rate 1: 88 bpm Height: 5'11" Respiratory Rate: 20 bpm Temperature: 36 .7 (C) / 98.0 (F) Weight: 133 lbs 05/10/2016 Blood Pressure 1: 146/70 Code: 8480-6 BMI: 18.5 Code: 99726-0 Heart Rate 1: 84 bpm Height: 5'11" Respiratory Rate: 20 bpm Temperature: 36 .7 (C) / 98.1 (F) Weight: 133 lbs 04/01/2015 Blood Pressure 1: 102/60 Code: 8480-6 BMI: 18.5 Code: 95186-1 Heart Rate 1: 64 bpm Height: 5'11" Respiratory Rate: 20 bpm Temperature: 36 .8 (C) / 98.2 (F) Weight: 133 lbs 01/13/2014 Blood Pressure 1: 124/78 Code: 8480-6 BMI: 19.8 Code: 92357-9 Heart Rate 1: 76 bpm Height: 5'11" Respiratory Rate: 20 bpm Temperature: 36 .8 (C) / 98.2 (F) Weight: 142 lbs 04/03/2012 Blood Pressure 1: 106/76 Code: 8480-6 BMI: 20.9 Code: 20810-5 Heart Rate 1: 84 bpm Height: 5'11" Respiratory Rate: 20 bpm Temperature: 36 .7 (C) / 98.0 (F) Weight: 150 lbs 12/20/2011 Blood Pressure 1: 116/60 Code: 8480-6 BMI: 20.1 Code: 40337-0 Heart Rate 1: 80 bpm Height: 5'11" Respiratory Rate: 20 bpm Temperature: 36 .4 (C) / 97.6 (F) Weight: 144 lbs 10/24/2011 Blood Pressure 1: 132/74 Code: 8480-6 BMI: 19.7 Code: 18791-0 Heart Rate 1: 96 bpm Height: 5'11" [...] 04/05/2015 follow up 04/01/2015 follow up 01/13/2014 [facility] November 2012 lab draw 07/19/2012 follow up 04/03/2012 S/P stent placement in LAD, changed effient to plavix hip pain 12/20/2011 dyskinesia or tremor 10/24/2011 follow up 03/13/2011 started on effient, zocor, and atenolol follow up 02/20/2011 [facility]/Dr Christian rojas follow up 02/23/2010 [facility], appt with Dr Bajwa 03/22/10 insomnia 01/12/2010 problems falling and staying asleep, takes nortriptyline Encounters Encounter Performer Location Codes Date () NURSE/OUTPATIENT VISIT EST Diagnosis: Essential (primary) hypertension[ICD10: I10] Diagnosis: Mixed hyperlipidemia[ICD10: E78.2] Diagnosis: Encounter for screening for malignant neoplasm of prostate[ICD10: Z12.5] Vonnie MATHEWS [employer] CPT-4: 88203 09/30/2019 ([id number]) OFFICE/OUTPATIENT VISIT EST Diagnosis: Encounter for therapeutic drug level monitoring[ICD10: Z51.81] Diagnosis: Essential tremor[ICD10: G25.0] Verna Ramirez VONNIE MATHEWS [employer] CPT-4: 06772 09/24/2019 ([id number]) OFFICE/OUTPATIENT VISIT EST Diagnosis: Noninfective gastroenteritis and colitis, unspecified[ICD10: K52.9] Diagnosis: Hemorrhage of anus and rectum[ICD10: K62.5] Vonnie MATHEWS [employer] CPT-4: 93481 05/26/2019 ([id number]) OFFICE/OUTPATIENT VISIT EST Diagnosis: Other intervertebral disc degeneration, 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] Diagnosis: Other forms of dyspnea[ICD10: R06.09] Vonnie MATHEWS [employer] [facility] CPT-4: 02293 03/17/2019 OFFICE/OUTPATIENT VISIT EST Diagnosis: Other intervertebral disc degeneration, 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] Diagnosis: Other symptoms and signs involving the musculoskeletal system[ICD10: R29.898] Vonnie MATHEWS DO [facility] CPT-4: 88514 02/18/2019 ([id number]) OFFICE/OUTPATIENT VISIT EST Diagnosis: Other allergic rhinitis[ICD10: J30.89] Akilah MATHEWS [employer] [facility] CPT-4: 43731 01/13/2019 ([id number]) NURSE/OUTPATIENT VISIT EST Diagnosis: Mixed hyperlipidemia[ICD10: E78.2] Diagnosis: Essential (primary) hypertension[ICD10: I10] Diagnosis: Encounter for screening for malignant neoplasm of prostate[ICD10: Z12.5] Diagnosis: Encounter for general adult medical examination with abnormal findings[ICD10: Z00.01] Diagnosis: Benign prostatic hyperplasia without lower urinary tract symptoms[ICD10: N40.0] Vonnie MATHEWS [employer] [facility] CPT-4: 20062 09/04/2018 ([id number]) OFFICE/OUTPATIENT VISIT EST Diagnosis: Otorrhea, left ear[ICD10: H92.12] Diagnosis: Impacted cerumen, right ear[ICD10: H61.21] Verna MATHEWS [employer] [facility] CPT-4: 82854 09/03/2018 ([id number]) OFFICE/OUTPATIENT VISIT EST Diagnosis: Other intervertebral disc degeneration, 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] Diagnosis: Primary insomnia[ICD10: F51.01] Diagnosis: Essential tremor[ICD10: G25.0] Vonnie MATHEWS [employer] [facility] CPT-4: 20487 08/26/2018 ([id number]) OFFICE/OUTPATIENT VISIT EST Diagnosis: Pelvic and perineal pain[ICD10: R10.2] Verna MATHEWS [employer] [facility] CPT-4: 64372 05/15/2018 ([id number]) OFFICE/OUTPATIENT VISIT EST Diagnosis: Encounter for therapeutic drug level monitoring[ICD10: Z51.81] Diagnosis: Acute sinusitis, unspecified[ICD10: J01.90] Diagnosis: Other intervertebral disc degeneration, 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] Diagnosis: Essential tremor[ICD10: G25.0] Diagnosis: Raynaud's syndrome without gangrene[ICD10: I73.00] Verna MATHEWS [employer] [facility] CPT-4: 70936 04/25/2018 ([id number]) OFFICE/OUTPATIENT VISIT EST Diagnosis: Idiopathic urticaria[ICD10: L50.1] Diagnosis: Other urticaria[ICD10: L50.8] Vonniefabricio COLMENARES Denia MATHEWS [employer] [facility] CPT-4: 87403 11/16/2017 ([id number]) OFFICE/OUTPATIENT VISIT EST Diagnosis: Idiopathic urticaria[ICD10: L50.1] Diagnosis: Other urticaria[ICD10: L50.8] Diagnosis: Other forms of dyspnea[ICD10: R06.09] Vonnie RODGERS Denia BOWMAN [employer] [facility] CPT-4: 77191 11/06/2017 ([id number]) OFFICE/OUTPATIENT VISIT EST Diagnosis: Dyspnea, unspecified[ICD10: R06.00] Diagnosis: Abnormal weight loss[ICD10: R63.4] Vonnie DOUGLASS REA [employer] [facility] CPT-4: 45076 09/03/2017 ([id number]) OFFICE/OUTPATIENT VISIT EST 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] Diagnosis: Mixed hyperlipidemia[ICD10: E78.2] Diagnosis: Essential tremor[ICD10: G25.0] Diagnosis: Essential (primary) hypertension[ICD10: I10] Diagnosis: Abnormal weight loss[ICD10: R63.4] Vonnie LUCIA [employer] [facility] CPT-4: 74669 08/21/2017 ([id number]) OFFICE/OUTPATIENT VISIT EST Diagnosis: Mixed hyperlipidemia[ICD10: E78.2] Diagnosis: Essential (primary) hypertension[ICD10: I10] 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] Diagnosis: Anemia, unspecified[ICD10: D64.9] Vonnie MATHEWS DO [facility] CPT-4: 62715 07/31/2017 ([id number]) OFFICE/OUTPATIENT VISIT EST Diagnosis: FLU VACCINE[ICD10: Z23] Vonnie GERMAN DO [facility] CPT-4: 85330 07/04/2017 ([id number]) OFFICE/OUTPATIENT VISIT EST Diagnosis: Mixed hyperlipidemia[ICD10: E78.2] Diagnosis: Essential tremor[ICD10: G25.0] 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] Diagnosis: Essential (primary) hypertension[ICD10: I10] Diagnosis: Supraventricular tachycardia[ICD10: I47.1] Diagnosis: Other fatigue[ICD10: R53.83] Diagnosis: Encounter for screening for malignant neoplasm of prostate[ICD10: Z12.5] Vonnie MATHEWS DO [facility] CPT-4: 08625 02/26/2017 ([id number]) OFFICE/OUTPATIENT VISIT EST Diagnosis: Essential tremor[ICD10: G25.0] Vonnie MATHEWS DO [facility] CPT-4: 71656 02/13/2017 ([id number]) OFFICE/OUTPATIENT VISIT EST Diagnosis: Essential tremor[ICD10: G25.0] Diagnosis: Other intervertebral disc degeneration, 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] Vonnie MATHEWS DO [facility] CPT-4: 46708 11/23/2016 ([id number]) OFFICE/OUTPATIENT VISIT EST Diagnosis: FLU VACCINE[ICD10: Z23] Vonnie GERMAN DO [facility] CPT-4: 48472 06/28/2016 OFFICE/OUTPATIENT VISIT EST Diagnosis: Open bite of right hand, initial encounter[ICD10: S61.451A] Vonnie MATHEWS DO [facility] CPT-4: 59077 05/23/2016 ([id number]) OFFICE/OUTPATIENT VISIT EST Diagnosis: Encounter for general adult medical examination with abnormal findings[ICD10: Z00.01] Diagnosis: Mixed hyperlipidemia[ICD10: E78.2] Diagnosis: Essential tremor[ICD10: G25.0] 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] Vonnie BOWMAN [employer] [facility] CPT-4: 35822 05/19/2016 ([id number]) OFFICE/OUTPATIENT VISIT EST Diagnosis: HYPERLIPIDEMIA NEC/NOS[ICD9: 272.4] Diagnosis: CAD[ICD9: 414.00] Diagnosis: TACHYCARDIA[ICD9: 785.0] Diagnosis: HYPERTENSION[ICD9: 401.9] Diagnosis: Routine medical exam[ICD9: V70.0] Vonnie BOWMAN [employer] CPT-4: 90662 04/05/2015 ([id number]) OFFICE/OUTPATIENT VISIT EST Diagnosis: HYPERTENSION[ICD9: 401.9] Diagnosis: HYPERLIPIDEMIA NEC/NOS[ICD9: 272.4] Diagnosis: CAD[ICD9: 414.00] Diagnosis: LUMB/LUMBOSAC DISC DEGEN[ICD9: 722.52] Vonnie Romuloalyssaranjan DOLLY GASPAR Denia BOWMAN [employer] CPT-4: 60721 04/01/2015 ([id number]) OFFICE/OUTPATIENT VISIT EST Diagnosis: CHEST PAIN NOS[ICD9: 786.50] Diagnosis: PAIN IN THORACIC SPINE[ICD9: 724.1] Diagnosis: HYPERTENSION[ICD9: 401.9] Diagnosis: GERD[ICD9: 530.81] Vonnie MATHEWS [employer] CPT-4: 19355 01/13/2014 ([id number]) OFFICE/OUTPATIENT VISIT EST Diagnosis: CAD[ICD9: 414.00] Diagnosis: HYPERLIPIDEMIA NEC/NOS[ICD9: 272.4] Vonnie Romulojuan miguel ANNA Denia MATHEWS [employer] CPT-4: 30451 07/19/2012 ([id number]) OFFICE/OUTPATIENT VISIT EST Diagnosis: CAD[ICD9: 414.00] Diagnosis: INSOMNIA NOS[ICD9: 780.52] Vonnie Romulojuan miguel COLMENARES Denia DYEER [employer] CPT-4: 43312 04/03/2012 ([id number]) OFFICE/OUTPATIENT VISIT EST Diagnosis: CHEST PAIN NOS[ICD9: 786.50] Diagnosis: CAD[ICD9: 414.00] Vonnie COLMENARES [employer] [facility] [employer] CPT-4: 18848 03/22/2012 ([id number]) OFFICE/OUTPATIENT VISIT EST Diagnosis: PROSTATITIS[ICD9: 601.9] Diagnosis: TREMOR NEC[ICD9: 333.1] Vonnie COLMENARES [employer] [facility] CPT-4: 05675 12/20/2011 OFFICE/OUTPATIENT VISIT EST Diagnosis: TREMOR NEC[ICD9: 333.1] Diagnosis: TACHYCARDIA[ICD9: 785.0] Diagnosis: HYPERTENSION[ICD9: 401.9] Vonnie SCHULTZ NDER DO [facility] CPT-4: 74956 10/24/2011 OFFICE/OUTPATIENT VISIT EST Vonnie SCHULTZ NDER DO [facility] CPT- 4: 27426 03/13/2011 ([id number]) OFFICE/OUTPATIENT VISIT EST Vonnie GASPAR [employer] DO [facility] CPT-4: 17103 02/20/2011 ([id number]) OFFICE/OUTPATIENT VISIT, EST Vonnie NELSON S. ORENDER DO [facility] CPT-4: 81161 02/23/2010 ([id number]) OFFICE/OUTPATIENT VISIT, EST Vonnie NELSON S. ORENDER DO [facility] CPT-4: 96919 01/12/2010 Plan of Care Planned Activity Notes Codes Status Date Appointment: Vonnie Mathews [facility]Ptel: [phone] [facility] [facility] 09/30/2019 Appointment: Verna Ramirez [address] [place], [place] [id number] RESCHEDULED 09/25/2019 Visit Diagnosis Plan: Essential tremor Discussion: sta ble on clonazepam. educated patient about purchasing a large, heavy pen that will allow him to improve his writing. instructed him that pens can be purchased on [employer]. ICD-9 : 333.1 ICD-10 : G25.0 09/24/2019 Visit Diagnosis Plan: Encounter for therapeutic drug l evel monitoring Discussion: UDS and contract completed today. ICD-9 : V58.83 ICD-10 : Z51.81 09/24/2019 Appointment: [facility] [address] [facility] [facility] MEDICATION REVIEW 09/24/2019 Visit Diagnosis Plan: Noninfective gastroenteritis and colitis, unspecified Discussion: Flagyl [place] diet Update colonoscopy ICD-9 : 558.9 ICD-10 : K52.9 05/26/2019 Visit Diagnosis Plan: Hemorrhage of anus and rectum Di scussion: Update colonoscopy ICD-9 : 569.3 ICD-10 : K62.5 05/26/2019 Appointment: Vonnie Mathews WPtel: [address] [place], [place] [phone] [place] record request faxed 05/23; LM with medical records 05/26/19 Hospital Follow Up 05/26/2019 Care Plan: Referral Order SNOMED-CT : 30 [id number] Pending 05/26/2019 Visit Diagnosis Plan: Other intervertebral disc degene ration, lumbar region Discussion: Increase lyrica to 150mg po q HS Continue stretches from PT [facility] Fwup after that appointment ICD-9 : 722.52 ICD-10 : M51.36 03/17/2019 Appointment: Vonnie Mathews WPtel: [address] [place], [place] [phone] US FOLLOW UP 03/17/2019 Visit Diagnosis Plan: Other intervertebral disc degene ration, lumbar region Discussion: Start PT Referral for epidural Will start lyrica 75mg po q HS once CT scan results obtained [facility] Follow Up: 3 weeks ICD-9 : [...] 729.89 ICD-10 : R29.898 02/18/2019 Appointment: Vonnie Mathewstel: [facility] US FOLLOW UP 02/18/2019 Appointment: Vonnie Mathewstel: [phone] [facility] US CANCELED 02/18/2019 Visit Diagnosis Plan: Other [...] : J30.89 01/13/2019 Appointment: Akilah Lopez [address] Due for annual wellness ACUTE ILLNESS 01/14/20 Appointment: Vonnie Mathews WPtel: [phone] [place] [address] US LAB 09/04/2018 Visit Diagnosis Plan: Impacted [...] : H92.12 09/03/2018 Appointment: Verna Ramirez [address] ACUTE ILLNESS 09/03/2018 Visit Diagnosis Plan: [...] M51.36 08/26/2018 Appointment: Vonnie Mathews WPtel: [phone] [facility] [id number] [place] FOLLOW UP 08/26/2018 Visit Diagnosis Plan: [...] ICD-10 : R10.2 05/15/2018 Appointment: Verna Ramirez [address] [place], [place] [id number] ACUTE ILLNESS 05/15/2018 Patient Education: Patient Medication Summary Completed 05/15/2018 Care Plan: US EXAM PELVIC COMPLETE scrotal LOINC : 39828-3 Pending 05/15/2018 Visit Diagnosis Plan: Other intervertebral [...] ICD-10 : I73.00 04/25/2018 Appointment: Verna Ramirez [address] [place] [address] MEDICATION REVIEW 04/25/2018 Patient Education: Patient Medication Summary Completed 04/25/2018 Appointment: Vonnie Mathews WPtel: [address] [place] [address] 11/16/2017 Patient Education: Patient Medication Summary Completed [...] : L50.1 11/06/2017 Appointment: Vonnie Mathews WPtel: [address] [place] [address] FOLLOW UP 11/06/2017 Patient Education: Patient Medication [...] : R63.4 09/03/2017 Appointment: Vonnie Mathews WPtel: [address] [place] [address] FOLLOW UP 09/03/2017 Patient Education: Patient Medication Summary Completed 09/03/2017 Visit Diagnosis Plan: Abnormal weight loss [...] Diagnosis Plan: Atherosclerotic he art disease of elim ira coronary artery without angina pectoris Discussion: Sees Cardiology in 2 days To ER if CP returns before ICD-9 : 414.00 ICD-10 : I25.10 08/21/2017 Appointment: Vonnie Mathewstel: [address] [place] [address] FOLLOW UP 08/21/2017 Patient Education: Patient Medication Summary Completed 08/21/2017 Appointment: Vonnie Mathews WPtel: [address] [place] [address] US LAB 07/31/2017 Patient Education: Patient Medication Summary Completed 07/31/2017 Appointment: Vonnie Mathews WPtel: [address] [place] [address] US INJECTION 07/04/2017 Patient Education: Patient Medication Summary Completed 07/04/2017 Appointment: Vonnie Mathews WPtel: [address] [place] [address] US LAB 02/26/2017 Patient Education: Patient Medication Summary Completed 02/26/2017 Visit Diagnosis Plan: Essential tremor Discussion: Con tinue clonazepam at 1mg q AM and primidone 50mg q HS Follow Up: 3 months ICD-9 : 333.1 ICD-10 : G25.0 02/13/2017 Appointment: Vonnie Mathews WPtel: [address] [place], [place] [phone] 02/08 confirmed~sl FOLLOW UP 02/13/2017 Patient Education: Patient Medication Summary Completed 02/13/2017 Appointment: Vonnie Mathews WPtel: [phone] [facility] US RESCHEDULED 01/23/2017 Visit Diagnosis Plan: Other intervertebral disc degene ration, lumbar region Discussion: DC oxycodone Tramadol 50mg 1-2 po TID prn pain Follow Up: 2 months ICD-9 : 722.52 ICD-10 : M51.36 11/23/2016 Visit Diagnosis Plan: Essential tremor Discussion: Inc rease clonazepam to 1mg po BID Discussed sinemet ICD-9 : 333.1 ICD-10 : G25.0 11/23/2016 Appointment: Vonnie Mathews WPtel: [facility] 11/22 confirmed~sl MEDICATION REVIEW 11/23/2016 Patient Education: Patient Medication Summary Completed 11/23/2016 Patient Education: [facility] - [employer] - Clonazepam - 18-64 - Dynamic Portal ID Completed 11/23/2016 Appointment: Vonnie Mathews WPtel: [address] [place], [place] [phone] [place] INJECTION 06/28/2016 Patient Education: Patient Medication Summary Completed 06/28/2016 Referral: Fernando Day WPtel: [address] [facility] Shilpa Lopez [id number] per Maribeth, the patient is sched uled [...] if worsening 05/23/2016 Appointment: Vonnie Mathews WPtel: [phone] [facility] ER Follow UP 05/23/2016 Patient Education: Patient Medication Summary Completed 05/23/2016 Appointment: Vonnie Mathews WPtel: [phone] [facility] US LAB 05/19/2016 Patient Education: Patient Medication Summary Completed 05/19/2016 Visit Plan: Change coreg to 3.125mg BID Trial of low dose clonazepam 0.5mg BID for tremors Fwup with Dr. Ramsey as scheduled Return for fasting lab--CBC, CMP, TSH, free T4, Lipids, PSA, B12 Proceed with Colonoscopy 05/10/2016 Appointment: Vonnie Mathews WPtel: [phone] [facility] 05/09 confirmed~sl Annual Well Visit 05/10/2016 Patient Education: Patient Medication Summary Completed 05/10/2016 Care Plan: Referral Order SNOMED-CT : 30 [id number] Pending 05/10/2016 Appointment: Vonnie Mathews WPtel: [address] [place], [place] [phone] [place] Rescheduled for 05/10/16 at 2PM~lb RESCHEDULED 04/26/2016 Referral: Danilo Ramsey WPtel: [address] [place], [place] [phone] Referral Initiated 04/29/2015 Appointment: Vonnie Mathews WPtel: [address] [place], [place] [phone] [place] LAB 04/05/2015 Patient Education: Patient Medication Summary Completed 04/05/2015 Visit Plan: Return in AM for fasting lab --CMP, lipids, CBC, TSH, PSA Change hydrocodone to oxycodone 7.5/325mg 1-2 po TID Schedule with cardiology Needs colonoscopy once cardiology evaluation complete Will need to restart chol meds after lab Recheck 1mo on pain meds 04/01/2015 Appointment: Vonnie Mathews WPtel: [phone] [place], [place] [phone] 03/31 confirmed -mf PHYSICAL 04/01/2015 Patient Education: Patient Medication Summary Completed 04/01/2015 Appointment: Vonnie Mathewstel: [phone] [place] [address] Annual Well Visit 09/23/2014 Visit Plan: Continue protonix Pt has fwu p with Card next month Rec chiropracter or PT for ribs/thoracics being out and could be contributing to chest pain 01/13/2014 Appointment: Vonnie Mathews WPtel: [phone] [place] [address] US FOLLOW UP 01/13/2014 Patient Education: Patient Medication Summary Completed 01/13/2014 Appointment: Ariella Mcnally WPtel: [address] [place] [address] US FOLLOW UP 12/12/2013 Appointment: Malika Cárdenas WPtel: [address] [place] [address] US PHYSICAL 12/12/2013 Appointment: Vonnie Mathews WPtel: [address] [place] [address] ACUTE ILLNESS 02/20/2013 Appointment: Vonnie Mathews WPtel: [address] [place] [address] LAB 07/19/2012 Patient Education: Patient Medication Summary Completed 07/19/2012 Appointment: Vonnie Mathews WPtel: [address] [place] [address] US FOLLOW UP 04/03/2012 Patient Education: Patient Medication Summary Completed 04/03/2012 Appointment: Vonnie Mathews WPtel: [address] [place] [address] ACUTE ILLNESS 03/22/2012 Patient Education: Patient Medication Summary Completed 03/22/2012 Appointment: Vonnie Mathews WPtel: [address] [place] [address] US FOLLOW UP 12/26/2011 Visit Plan: Add Cipro Continue current m eds 12/20/2011 Appointment: Vonnie Mathews WPtel: [address] [place], [place] [phone] ACUTE ILLNESS 12/20/2011 Patient Education: Patient Medication Summary Completed 12/20/2011 Visit Plan: Change neurontin to Cymbalta 30mg for 1wk then 60mg QD Add Propranolol for tremor 10/24/2011 Appointment: Vonine Mathews WPtel: [address] [place] [address] ACUTE ILLNESS 10/24/2011 Appointment: Vonnie Mathews WPtel: [address] [place], [place] [phone] ACUTE ILLNESS 10/24/2011 Patient Education: Patient Medication Summary Completed 10/24/2011 Visit Plan: Continue current meds and fw up with Card as scheduled 03/13/2011 Appointment: Vonnie Mathews WPtel: [address] [place], [place] [phone] FOLLOW UP 03/13/2011 Patient Education: Patient Medication Summary Completed 03/13/2011 Visit Plan: Will obtain all records and lab from [facility] Discussed will likely need heart cath which pt states that Card did talk to him about in the hospital 02/20/2011 Appointment: Vonnie Mathews WPtel: [address] [place] [address] ACUTE ILLNESS 02/20/2011 Patient Education: Patient Medication Summary Completed 02/20/2011 Visit Plan: Cont Pepcid and Prilosec See Card for cardiac cath. 02/23/2010 Appointment: Vonnie Mathews WPtel: [address] [place], [place] [phone] FOLLOW UP 02/23/2010 Patient Education: Patient Medication Summary Completed 02/23/2010 Visit Plan: Increase Pamelor to 75mg qhs Increase Hydrocodone to 10/325mg 1-2 po q6 prn 01/12/2010 Appointment: Vonnie Mathews WPtel: [address] [place] [address] ACUTE ILLNESS 01/12/2010 Patient Education: Patient Medication Summary Completed 01/12/2010 Referral: Iván Pardo WPtel: [facility] [address], [address] [id number] [place] Referral Initiated Referral: Fernando Day WPtel: #1 [id number] [place] Referral Completed Referral: Fernando Day WPtel: #1 [id number] Referral Appointment Requested Instructions Comment . [...]
--- OUTSIDE RECORDS SUMMARY | 2020-02-10 08:19 | XMS REPORT | CCD ---
Author Author Nash Mathews D.O. Organization [facility] Address [address] [place] [address] Phone Care Team Providers Care Float Operator Name Role Phone Vonnie Mathews D.O., PP Unavailable CCM Unavailable Summary Purpose Interface Exchange Insurance Providers Payer name Policy type / Coverage type Covered republican ID Effective Begin Date Effective End Date A[employer]NA MEDICARE Medicare Part B [id number] 2019 Unknown Family History Family History data not found Social History Social History Element Codes Description Effective Dates Marital status Unknown 10/24/[address]: 324250995 Nonsmoker 03/29/2011 Allergies, Adverse Reactions, Alerts Substance [...] R63.4 08/21/2017 Active 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: [...] Start Date Stop Date Status Fill Instructions pravastatin 20 mg tablet RxNorm: 772741 1 Tablet(s) Oral QD 020 04/06/2020 Active Singulair 10 mg tablet RxNorm: 900274 TAKE 1 TABLET BY MOUTH EV SUSAN DAY 10/10/2019 07/05/2020 Active Lyrica 75 mg capsule RxNorm: 127027 1 Capsule(s) Oral every nig ht at bedtime 10/09/2019 01/07/2020 Active clonazepam 1 mg tablet RxNorm: 130822 TAKE 1 TABLET BY MOUTH EV SUSAN AM 09/23/2019 10/22/2019 Active clonazepam 1 mg tablet RxNorm: 857212 TAKE 1 TABLET BY MOUTH EV SUSAN AM 08/21/2019 09/22/2019 Inactive Singulair 10 mg tablet RxNorm: 467946 TABLET(S) 1 TABLET(S) PO QD 1 10/09/2019 Inactive Flagyl 500 mg tablet RxNorm: 224332 1 Tablet(s) PO TID 05/26/2019 Inactive clonazepam 1 mg tablet RxNorm: 999332 TAKE 1 TABLET BY MOUTH EV SUSAN MORNING 05/23/2019 06/21/2019 Inactive pravastatin 20 mg tablet RxNorm: 727668 1 Tablet(s) PO QD 04/14/2019 10/09/2019 Inactive Needs updated fasting labs Singulair 10 mg tablet RxNorm: 215361 Tablet(s) 1 TABLET(S) PO QD 0 04/14/2019 07/12/2019 Inactive clonazepam 1 mg tablet RxNorm: 330677 1 Tablet(s) PO QAM 02/21/2019 0 05/23/2019 Inactive Bevespi Aerosphere 9 mcg-4.8 mcg HFA aerosol inhaler RxNorm: 2732124 2 Puff(s) INH BID 02/19/2019 No Stop Date Active ProAir HFA 90 mcg/actuation aerosol inhaler RxNorm: 573610 2 Puff(s) INH Q4H as needed 02/19/2019 09/24/2019 Inactive metoprolol tartrate 25 mg tablet RxNorm: 078717 1/2 Tablet(s) PO BI D 02/18/2019 05/18/2019 Inactive pravastatin 20 mg tablet RxNorm: 718942 1 Tablet(s) PO QD Needs updated fasting labs 01/13/2019 04/14/2019 Inactive Needs updated fa sting labs Singulair 10 mg tablet RxNorm: 261712 Tablet(s) 1 TABLET(S) PO QD 0 01/13/2019 04/12/2019 Inactive Plavix 75 mg tablet RxNorm: 795848 Tablet(s) 1 TABLET(S) PO QD 04/201906/20/2019 Inactive [SAVINGS FOR NON-COVERED SHANDA GS -- BIN:777688, PCN: ASPROD1, Group: XXXXX, ID# [id number], Questions: . THIS IS NOT INSURANCE.] Singulair 10 mg tablet RxNorm: 178678 1 TABLET(S) PO QD 10/29/2018 Inactive primidone 50 mg tablet RxNorm: 667450 2 TABLET(S) PO BI D TAKE 2 TABLETS BY MOUTH EVERY NIGHT AT BEDTIME 10/07/2018 01/12/2019 Inactive Patient requests 90 days supply pravastatin 20 mg tablet RxNorm: 892639 1 TABLET(S) PO QD 09/23/2018 01/12/2019 Inactive clonazepam 1 mg tablet RxNorm: 289561 1 Tablet(s) PO QAM 09/19/2018 0 12/17/2018 Inactive primidone 50 mg tablet RxNorm: 271514 TABLET(S) TAKE 2 TABLETS BY MOUTH EVERY NIGHT AT BEDTIME 09/18/2018 01/12/2019 Inactive ciprofloxacin 0.2 % ear drops in a dropperette RxNorm: 30444 6 2 Drop(s) left otic (ear) BID 09/03/2018 09/09/2018 Inactive primidone 50 mg tablet RxNorm: 214759 2 Tablet(s) PO BI D TAKE 2 TABLETS BY MOUTH EVERY NIGHT AT BEDTIME 08/26/2018 10/06/2018 Inactive Ambien 5 mg tablet RxNorm: 284376 TAKE 1 TABLET BY MOUTH EVERY NIGHT AT BEDTIME 08/05/2018 09/03/2018 Inactive Singulair 10 mg tablet RxNorm: 107631 1 TABLET(S) PO QD 07/23/2018 Inactive clonazepam 1 mg tablet RxNorm: 961110 TAKE 1 TABLET BY MOUTH EV SUSAN MORNING 07/23/2018 08/21/2018 Inactive Plavix 75 mg tablet RxNorm: 035169 1 TABLET(S) PO QD 07/04/201812/22 Inactive [SAVINGS FOR NON-COVERED DRUGS -- BIN:00 8182, PCN: ASPROD1, Group: XXXXX, ID# [id number], Questions: . THIS IS NOT INSURANCE.] clonazepam 1 mg tablet RxNorm: 672943 TAKE 1 TABLET BY MOUTH EV SUSAN MORNING 06/25/2018 07/23/2018 Inactive clonazepam 1 mg tablet RxNorm: 565404 TAKE 1 TABLET BY MOUTH EV SUSAN MORNING 05/23/2018 06/21/2018 Inactive primidone 50 mg tablet RxNorm: 868639 Tablet(s) TAKE 2 TABLETS BY MOUTH EVERY NIGHT AT BEDTIME 05/16/2018 08/25/2018 Inactive oxycodone-acetaminophen 7.5 mg-325 mg tablet RxNorm: 9181990 1-2 Tablet(s) PO TID as needed 04/25/2018 05/24/2018 Inactive Singulair 10 mg tablet RxNorm: 470102 1 Tablet(s) PO QD 04/25/2018 Inactive Medrol (Jose) 4 mg tablets in a dose pack RxNorm: 598927 Tablet(s) PO take as directed 04/25/2018 09/02/2018 Inactive clonazepam 1 mg tablet RxNorm: 291709 TAKE 1 TABLET BY MOUTH EV SUSAN MORNING 04/24/2018 05/22/2018 Inactive Plavix 75 mg tablet RxNorm: 363426 1 TABLET(S) PO QD 04/04/201807/02 Inactive [SAVINGS FOR NON-COVERED DRUGS -- BIN:00 9170, PCN: ASPROD1, Group: XXXXX, ID# [id number], Questions: . THIS IS NOT INSURANCE.] pravastatin 20 mg tablet RxNorm: 368012 1 Tablet(s) PO QD 03/21/2018 09/16/2018 Inactive ProAir HFA 90 mcg/actuation aerosol inhaler RxNorm: 239048 2 Puff(s) INH Q4H as needed 03/18/2018 03/17/2018 Inactive tamsulosin 0.4 mg capsule RxNorm: 705514 1 CAPSULE(S) PO QD 018 01/12/2019 Inactive clonazepam 1 mg tablet RxNorm: 322565 1 Tablet(s) PO QAM 02/25/2018 0 04/25/2018 Inactive tamsulosin 0.4 mg capsule RxNorm: 495880 1 Capsule(s) PO QD 018 03/13/2018 Inactive tamsulosin 0.4 mg capsule RxNorm: 789213 1 Capsule(s) PO QD 018 02/03/2018 Inactive tamsulosin 0.4 mg capsule RxNorm: 771365 1 Capsule(s) PO QD 018 02/12/2018 Inactive Ambien 5 mg tablet RxNorm: 598455 Tablet(s) TAKE 1 TAB LET BY MOUTH EVERY NIGHT AT BEDTIME 01/24/2018 08/05/2018 Inactive primidone 50 mg tablet RxNorm: 929441 Tablet(s) TAKE 2 TABLETS BY MOUTH EVERY NIGHT AT BEDTIME 01/18/2018 05/16/2018 Inactive cyclobenzaprine 10 mg tablet RxNorm: 246935 1 Tablet(s) PO TID as needed for muscle spasm 01/11/2018 02/09/2018 Inactive [SAVINGS FOR NON -COVERED DRUGS -- BIN:821764, PCN: ASPROD1, Group: XXXXX, ID# [id number], Questions: . THIS IS NOT INSURANCE.] clonazepam 1 mg tablet RxNorm: 798362 1 Tablet(s) PO QAM 12/24/2017 0 02/21/2018 Inactive prednisone 20 mg tablet RxNorm: 566028 1 Tablet(s) PO QD 11/06/2017 0 11/10/2017 Inactive EpiPen 2-Jose 0.3 mg/0.3 mL injection, auto-injector RxNorm: 088470 1 Unit Dose IM as needed 11/06/2017 09/24/2019 Inactive ProAir HFA 90 mcg/actuation aerosol inhaler RxNorm: 404055 2 Puff(s) INH Q4H as needed 10/30/2017 03/17/2018 Inactive primidone 50 mg tablet RxNorm: 650265 TAKE 2 TABLETS BY MOUTH EVERY NIGHT AT BEDTIME 10/15/2017 01/17/2018 Inactive Plavix 75 mg tablet RxNorm: 323239 1 Tablet(s) PO QD 10/01/201703/29 Inactive [SAVINGS FOR NON-COVERED DRUGS -- BIN:00 3585, PCN: ASPROD1, Group: XXXXX, ID# [id number], Questions: . THIS IS NOT INSURANCE.] clonazepam 1 mg tablet RxNorm: 173979 1 Tablet(s) PO QAM 09/19/2017 0 12/16/2017 Inactive primidone 50 mg tablet RxNorm: 579183 2 Tablet(s) PO QHS 08/29/2017 0 01/18/2018 Inactive oxycodone-acetaminophen 7.5 mg-325 mg tablet RxNorm: 3500239 1-2 Tablet(s) PO TID as needed 08/22/2017 09/19/2017 Inactive pravastatin 20 mg tablet RxNorm: 673586 1 Tablet(s) PO QD 08/21/2017 03/21/2018 Inactive carvedilol 3.125 mg tablet RxNorm: 485766 1 Tablet(s) P O BID to replace 6.25mg dose 08/21/2017 09/02/2017 Inactive primidone 50 mg tablet RxNorm: 185562 TAKE 2 TABLETS BY MOUTH EVERY NIGHT AT BEDTIME 06/18/2017 08/28/2017 Inactive clonazepam 1 mg tablet RxNorm: 941849 1 Tablet(s) PO QAM 06/04/2017 1 11/02/2016 Inactive Plavix 75 mg tablet RxNorm: 840494 1 Tablet(s) PO QD 04/10/201710/01 Inactive [SAVINGS FOR NON-COVERED DRUGS -- BIN:00 6912, PCN: ASPROD1, Group: XXXXX, ID# [id number], Questions: . THIS IS NOT INSURANCE.] pravastatin 20 mg tablet RxNorm: 425266 1 Tablet(s) PO QD 02/26/2017 08/24/2017 Inactive carvedilol 3.125 mg tablet RxNorm: 634268 1 Tablet(s) P O BID to replace 6.25mg dose 02/26/2017 08/21/2017 Inactive Ultram 50 mg tablet RxNorm: 425587 TAKE 1 TO 2 TABLETS BY MOUTH THREE TIMES DAILY NEEDED FOR PAIN 02/26/2017 03/07/2017 Inactive pravastatin 20 mg tablet RxNorm: 824406 1 Tablet(s) PO QD 02/26/2017 08/21/2017 Inactive carvedilol 3.125 mg tablet RxNorm: 162695 1 Tablet(s) P O BID to replace 6.25mg dose 02/26/2017 08/20/2017 Inactive clonazepam 0.5 mg tablet RxNorm: 198225 1 Tablet(s) PO QAM 02/14/20 17 02/13/2017 Inactive primidone 50 mg tablet RxNorm: 641701 1 Tablet(s) PO QHS 02/13/2017 0 05/01/2017 Inactive clonazepam 1 mg tablet RxNorm: 720698 1 Tablet(s) PO QAM 02/13/2017 0 05/13/2017 Inactive primidone 50 mg tablet RxNorm: 175302 1/2 Tablet(s) PO QD for 7 days then increase to 1 tablet at bedtime 01/09/2017 02/12/2017 Inactive pravastatin 20 mg tablet RxNorm: 252994 Tablet(s) 1 TABLET(S) PO QD 11/29/2016 02/25/2017 Inactive clonazepam 1 mg tablet RxNorm: 623613 1 Tablet(s) PO BID replac es 0.5mg dose 11/23/2016 01/08/2017 Inactive pravastatin 20 mg tablet RxNorm: 684975 1 TABLET(S) PO QD 11/17/2016 11/28/2016 Inactive Ambien 5 mg tablet RxNorm: 136470 TAKE 1 TABLET BY MOUTH EVERY NIGHT AT BEDTIME 11/17/2016 12/14/2016 Inactive clonazepam 0.5 mg tablet RxNorm: 841547 TAKE 1 TABLET BY MOUTH TWICE DAILY 11/17/2016 11/22/2016 Inactive Plavix 75 mg tablet RxNorm: 683823 1 Tablet(s) PO QD 11/06/201604/09 Inactive [SAVINGS FOR NON-COVERED DRUGS -- BIN: 3585, PCN: ASPROD1, Group: XXXXX, ID# [id number], Questions: . THIS IS NOT INSURANCE.] Plavix 75 mg tablet RxNorm: 408893 1 Tablet(s) PO QD 08/28/201611/05 Inactive [SAVINGS FOR NON-COVERED DRUGS -- BIN:00 3585, PCN: ASPROD1, Group: XXXXX, ID# [id number], Questions: . THIS IS NOT INSURANCE.] Lidoderm 5 % topical patch RxNorm: 2149045 Application T OP 2 patches for 12hrs then off for 12hrs 08/28/2016 08/27/2016 Inactive clonazepam 0.5 mg tablet RxNorm: 894418 1 Tablet(s) PO BID 08/07/20 16 11/22/2016 Inactive pravastatin 20 mg tablet RxNorm: 231026 1 Tablet(s) PO QD 08/07/2016 11/04/2016 Inactive cyclobenzaprine 10 mg tablet RxNorm: 614299 1 Tablet(s) PO TID as needed for muscle spasm 08/07/2016 09/05/2016 Inactive [SAVINGS FOR NON -COVERED DRUGS -- BIN:692607, PCN: ASPROD1, Group: XXXXX, ID# [id number], Questions: . THIS IS NOT INSURANCE.] Plavix 75 mg tablet RxNorm: 882453 1 Tablet(s) PO QD 08/07/201608/27 Inactive [SAVINGS FOR NON-COVERED DRUGS -- BIN: 3585, PCN: ASPROD1, Group: XXXXX, ID# [id number], Questions: . THIS IS NOT INSURANCE.] carvedilol 3.125 mg tablet RxNorm: 736738 1 Tablet(s) P O BID to replace 6.25mg dose 08/07/2016 02/02/2017 Inactive clonazepam 0.5 mg tablet RxNorm: 002960 1 Tablet(s) PO BID 07/04/20 16 08/07/2016 Inactive Plavix 75 mg tablet RxNorm: 561912 1 TABLET(S) PO QD 06/20/201608/06 Inactive [SAVINGS FOR NON-COVERED DRUGS -- BIN: 3585, PCN: ASPROD1, Group: XXXXX, ID# [id number], Questions: . THIS IS NOT INSURANCE.] clonazepam 0.5 mg tablet RxNorm: 044779 1 Tablet(s) PO BID 06/09/2007/03/2016 Inactive pravastatin 20 mg tablet RxNorm: 269113 1 Tablet(s) PO QD 05/23/2016 08/06/2016 Inactive pravastatin 20 mg tablet RxNorm: 839451 1 Tablet(s) PO QD 05/23/2016 05/22/2016 Inactive carvedilol 3.125 mg tablet RxNorm: 110424 1 Tablet(s) P O BID to replace 6.25mg dose 05/10/2016 08/06/2016 Inactive carvedilol 3.125 mg tablet RxNorm: 085460 1 Tablet(s) P O BID to replace 6.25mg dose 05/10/2016 05/09/2016 Inactive clonazepam 0.5 mg tablet RxNorm: 382068 1 Tablet(s) PO BID 05/10/20 16 06/08/2016 Inactive carvedilol 6.25 mg tablet RxNorm: 231841 1 Tablet(s) PO QD 05/10/20 16 05/10/2016 Inactive simvastatin 40 mg tablet RxNorm: 203781 1 TABLET(S) PO QD 04/10/2016 05/09/2016 Inactive Medrol (Jose) 4 mg tablets in a dose pack RxNorm: 186522 Tablet(s) PO As Directed 01/13/2016 05/09/2016 Inactive cyclobenzaprine 10 mg tablet RxNorm: 637699 1 TABLET(S) PO TID NEEDED FOR SPASM 01/11/2016 03/10/2016 Inactive [SAVINGS FOR NON -COVERED DRUGS -- BIN:088645, PCN: ASPROD1, Group: XXXXX, ID# [id number], Questions: . THIS IS NOT INSURANCE.] Plavix 75 mg tablet RxNorm: 152842 1 Tablet(s) PO QD 12/30/201506/19 Inactive [SAVINGS FOR NON-COVERED DRUGS -- BIN: 3585, PCN: ASPROD1, Group: XXXXX, ID# [id number], Questions: . THIS IS NOT INSURANCE.] Ambien 5 mg tablet RxNorm: 774867 TAKE 1 TABLET BY MOUTH EVERY DAY AT BEDTIME 11/15/2015 11/17/2016 Inactive simvastatin 40 mg tablet RxNorm: 488631 1 Tablet(s) PO QD 10/11/2015 01/12/2019 Inactive simvastatin 40 mg tablet RxNorm: 513184 1 Tablet(s) PO QD 10/08/2015 10/10/2015 Inactive Ambien 5 mg tablet RxNorm: 659594 TAKE 1 TABLET BY MOUTH EVERY NIGHT AT BEDTIME 07/27/2015 11/15/2015 Inactive Plavix 75 mg tablet RxNorm: 130705 1 Tablet(s) PO QD 06/28/201512/29 Inactive [SAVINGS FOR NON-COVERED DRUGS -- BIN: 3585, PCN: ASPROD1, Group: XXXXX, ID# [id number], Questions: . THIS IS NOT INSURANCE.] Coreg 6.25 mg tablet RxNorm: 516778 1 TABLET(S) PO BID 04/19/2015 Inactive [SAVINGS FOR NON-COVERED DRUGS -- BIN:00 3585, PCN: ASPROD1, Group: XXXXX, ID# [id number], Questions: . THIS IS NOT INSURANCE.] simvastatin 40 mg tablet RxNorm: 625685 1 Tablet(s) PO QD 04/05/2015 04/04/2015 Inactive simvastatin 40 mg tablet RxNorm: 208641 1 Tablet(s) PO QD 04/05/2015 10/11/2015 Inactive Plavix 75 mg tablet RxNorm: 360187 1 TABLET(S) PO QD 03/22/201504/20 Inactive [SAVINGS FOR NON-COVERED DRUGS -- BIN:00 3585, PCN: ASPROD1, Group: XXXXX, ID# [id number], Questions: . THIS IS NOT INSURANCE.] Plavix 75 mg tablet RxNorm: 334275 1 Tablet(s) PO QD 03/22/201506/28 Inactive [SAVINGS FOR NON-COVERED DRUGS -- BIN:00 3585, PCN: ASPROD1, Group: XXXXX, ID# [id number], Questions: . THIS IS NOT INSURANCE.] Ambien 5 mg tablet RxNorm: 681681 1 Tablet(s) PO QHS 12/17/201407/28 Inactive [SAVINGS FOR NON-COVERED DRUGS -- BIN:00 3585, PCN: ASPROD1, Group: XXXXX, ID# [id number], Questions: . THIS IS NOT INSURANCE.] Coreg 6.25 mg tablet RxNorm: 291364 1 Tablet(s) PO BID 12/17/2014 Inactive [SAVINGS FOR NON-COVERED DRUGS -- BIN:00 3585, PCN: ASPROD1, Group: XXXXX, ID# [id number], Questions: . THIS IS NOT INSURANCE.] Plavix 75 mg tablet RxNorm: 438532 1 Tablet(s) PO QD 12/17/201403/16 Inactive [SAVINGS FOR NON-COVERED DRUGS -- BIN:00 3585, PCN: ASPROD1, Group: XXXXX, ID# [id number], Questions: . THIS IS NOT INSURANCE.] cyclobenzaprine 10 mg tablet RxNorm: 390317 1 Tablet(s) PO TID as needed for spasm 12/17/2014 03/16/2015 Inactive [SAVINGS FOR NON -COVERED DRUGS -- BIN:800922, PCN: ASPROD1, Group: XXXXX, ID# XXXXXXX, Questions: . THIS IS NOT INSURANCE.] Coreg 6.25 mg tablet RxNorm: 757220 1 Tablet(s) PO BID 10/21/201409/2014 Inactive [SAVINGS FOR NON-COVERED DRUGS -- BIN:00 3585, PCN: ASPROD1, Group: XXXXX, ID# [id number], Questions: . THIS IS NOT INSURANCE.] Plavix 75 mg tablet RxNorm: 456400 1 Tablet(s) PO QD 10/21/201412/16 Inactive [SAVINGS FOR NON-COVERED DRUGS -- BIN:00 3585, PCN: ASPROD1, Group: XXXXX, ID# [id number], Questions: . THIS IS NOT INSURANCE.] Plavix 75 mg tablet RxNorm: 657409 1 Tablet(s) PO QD Ne [facility] routine check up--last seen March 2012 09/21/2014 10/20/2014 Inactive [SAVINGS FOR UNINSURED PATIENTS -- BIN:664464, PCN: ASPROD1, Group: AME08, ID# [id number], Process claim through [employer], for questions: . THIS IS NOT INSURANCE.] Ambien 5 mg tablet RxNorm: 868673 1 Tablet(s) PO QHS 09/21/201412/16 Inactive [SAVINGS FOR UNINSURED PATIENTS -- BIN:0 04147, PCN: ASPROD1, Group: AME08, ID# [id number], Process claim through [employer], for questions: . THIS IS NOT INSURANCE.] Coreg 6.25 mg tablet RxNorm: 847847 1 Tablet(s) PO BID 09/21/201411/2014 Inactive [SAVINGS FOR UNINSURED PATIENTS -- BIN:0 77552, PCN: ASPROD1, Group: AME08, ID# [id number], Process claim through [employer], for questions: . THIS IS NOT INSURANCE.] Plavix 75 mg tablet RxNorm: 774993 1 Tablet(s) PO QD Ne eds routine check up--last seen March 2012 08/04/2014 09/02/2014 Inactive [SAVINGS FOR UNINSURED PATIENTS -- BIN:903125, PCN: ASPROD1, Group: AME08, ID# [id number], Process claim through [employer], for questions: . THIS IS NOT INSURANCE.] Plavix 75 mg tablet RxNorm: 440165 1 Tablet(s) PO QD Ne eds routine check up--last seen March 2012 08/03/2014 08/03/2014 Inactive Protonix 40 mg tablet,delayed release RxNorm: 425405 1 Tablet(s ) PO QD 06/08/2014 02/17/2019 Inactive [SAVINGS FOR UNINSUR ED PATIENTS -- BIN:505820, PCN: ASPROD1, Group: AME08, ID# [id number], Process claim through [employer], for questions: . THIS IS NOT INSURANCE.] hydrocodone 10 mg-acetaminophen 325 mg tablet RxNorm: 307291 1 Tablet(s) PO BID as needed for pain 02/18/2014 03/31/2015 Inactive Coreg 6.25 mg tablet RxNorm: 360804 1 Tablet(s) PO BID 02/02/2014 Inactive Protonix 40 mg granules delayed-release packet RxNorm: 831998 1 Tablet(s) PO QD 01/13/2014 06/08/2014 Inactive Plavix 75 mg tablet RxNorm: 834127 1 Tablet(s) PO QD Ne eds routine check up--last seen March 2012 01/13/2014 08/02/2014 Inactive Plavix 75 mg tablet RxNorm: 288460 1 Tablet(s) PO QD Ne eds routine check up--last seen March 2012 12/09/2013 01/07/2014 Inactive Coreg 6.25 mg tablet RxNorm: 959072 1 Tablet(s) PO BID 12/09/2013 Inactive Cymbalta 60 mg capsule,delayed release RxNorm: 355133 1 Capsule (s) PO QD 10/31/2013 01/12/2014 Inactive Coreg 6.25 mg tablet RxNorm: 574334 1 Tablet(s) PO BID 10/31/2013 Inactive Plavix 75 mg tablet RxNorm: 347386 1 Tablet(s) PO QD Ne eds routine check up--last seen March 2012 10/31/2013 11/29/2013 Inactive Coreg 6.25 mg tablet RxNorm: 993793 1 Tablet(s) PO BID 10/31/2013 Inactive atorvastatin 40 mg tablet RxNorm: 229900 1 Tablet(s) PO QD 10/31/1903/31/2015 Inactive Plavix 75 mg tablet RxNorm: 186335 1 Tablet(s) PO QD Ne eds routine check up--last seen March 2012 09/23/2013 10/30/2013 Inactive cyclobenzaprine 10 mg tablet RxNorm: 745255 1 Tablet(s) PO TID as needed for spasm 09/23/2013 No Stop Date Active cyclobenzaprine 10 mg tablet RxNorm: 102933 1 Tablet(s) PO TID as needed for spasm 07/04/2013 09/22/2013 Inactive atorvastatin 40 mg tablet RxNorm: 231783 1 Tablet(s) PO QD 06/23/20 13 10/30/2013 Inactive atorvastatin 40 mg tablet RxNorm: 898987 1 Tablet(s) PO QD 04/22/20 13 06/22/2013 Inactive Nucynta 50 mg tablet RxNorm: 990404 1-2 Tablet(s) PO Q6H as nee ded for pain 01/01/2013 01/12/2014 Inactive Ambien 5 mg tablet RxNorm: 351554 1 Tablet(s) PO QHS 10/16/201201/13 Inactive Plavix 75 mg tablet RxNorm: 453087 1 Tablet(s) PO QD 09/19/201209/13 Inactive Protonix 40 mg tablet,delayed release RxNorm: 899744 1 Tablet(s ) PO QD 09/19/2012 09/18/2012 Inactive simvastatin 40 mg tablet RxNorm: 509483 1 Tablet(s) PO QD 09/19/2012 02/23/2013 Inactive Protonix 40 mg tablet,delayed release RxNorm: 755165 1 Tablet(s ) PO QD 09/19/2012 09/13/2013 Inactive Ultram 50 mg tablet RxNorm: 946868 1-2 Tablet(s) PO QID as need ed for pain 09/19/2012 02/26/2017 Inactive propranolol 80 mg tablet RxNorm: 253616 1 Tablet(s) PO QHS 09/19/19 13 09/18/2012 Inactive Cymbalta 60 mg capsule,delayed release RxNorm: 719419 1 Capsule (s) PO QD 09/19/2012 09/18/2012 Inactive Cymbalta 60 mg capsule,delayed release RxNorm: 115548 1 Capsule (s) PO QD 09/19/2012 03/17/2013 Inactive propranolol 80 mg tablet RxNorm: 920971 1 Tablet(s) PO QHS 09/19/19 13 02/23/2013 Inactive hydrocodone-acetaminophen 10 mg-325 mg tablet RxNorm: 429386 2 1-2 Tablet(s) PO QID 07/25/2012 02/23/2013 Inactive Ambien 10 mg tablet RxNorm: 206054 1 Tablet(s) PO QHS as needed for sleep 07/10/2012 01/27/2013 Inactive propranolol 80 mg tablet RxNorm: 085409 1 Tablet(s) PO QHS 05/13/20 12 09/18/2012 Inactive hydrocodone-acetaminophen 10 mg-325 mg tablet RxNorm: 833646 2 1-2 Tablet(s) PO QID 05/02/2012 No Stop Date Active Restoril 15 mg Cap RxNorm: 732130 1-2 Capsule(s) PO QHS 05/02/2012 Inactive propranolol 80 mg tablet RxNorm: 899698 1 Tablet(s) PO QHS 05/02/20 12 05/12/2012 Inactive Chantix Starting Month Box 0.5 mg (11)-1 mg (42) Tabs in a Dose Pack RxNorm: 142594 Tablet(s) PO As Directed 04/01/2012 01/27/2013 Inactive simvastatin 40 mg tablet RxNorm: 105816 1 Tablet(s) PO QD 03/28/2012 09/18/2012 Inactive simvastatin 40 mg Tab RxNorm: 408708 1 Tablet(s) PO QD 03/22/201207/2012 Inactive Effient 10 mg Tab RxNorm: 725039 1 Tablet(s) PO QD 03/22/2012 012 Inactive Prilosec 40 mg Capsule, delayed release RxNorm: 509706 1 Capsul e(s) PO QD 03/22/2012 09/18/2012 Inactive Prilosec 40 mg Capsule, delayed release RxNorm: 519530 1 Capsul e(s) PO QD 03/19/2012 03/21/2012 Inactive Cymbalta 60 mg capsule,delayed release RxNorm: 898837 1 Capsule (s) PO QD 03/04/2012 08/30/2012 Inactive hydrocodone-acetaminophen 10 mg-325 mg Tab RxNorm: 9375347 1-2 T ablet(s) PO QID 01/23/2012 No Stop Date Active Cymbalta 60 mg Capsule, delayed release RxNorm: 798297 1 Capsul e(s) PO QD 01/23/2012 03/03/2012 Inactive Cipro 500 mg Tab RxNorm: 666984 1 Tablet(s) PO BID 12/20/2011 012 Inactive Cymbalta 60 mg Capsule, delayed release RxNorm: 701723 1 Capsul e(s) PO QD 12/13/2011 01/22/2012 Inactive nortriptyline 75 mg Cap RxNorm: 087163 1 Capsule(s) PO QHS 11/29/1904/02/2012 Inactive Cymbalta 60 mg Cap RxNorm: 999928 1 Capsule(s) PO QD 10/24/201112/11 Inactive propranolol 80 mg Tab RxNorm: 892257 1 Tablet(s) PO QHS 10/24/2011 Inactive hydrocodone-acetaminophen 10 mg-325 mg Tab RxNorm: 2369101 1-2 T ablet(s) PO QID 09/29/2011 No Stop Date Active hydrocodone-acetaminophen 10 mg-325 mg Tab RxNorm: 7690301 1-2 T ablet(s) PO QID 07/25/2011 No Stop Date Active hydrocodone-acetaminophen 10 mg-325 mg Tab RxNorm: 0090316 1-2 T ablet(s) PO QID 02/14/2011 No Stop Date Active Prilosec 40 mg Cap RxNorm: 281654 1 Capsule(s) PO 01/03/2011 01/13/20 19 Inactive nortriptyline 75 mg Cap RxNorm: 072562 1 Capsule(s) PO QHS 01/04/20 11 07/01/2011 Inactive Neurontin 600 mg Tab RxNorm: 874746 1 Tablet(s) PO QHS 12/08/201011/2011 Inactive hydrocodone-acetaminophen 5 mg-500 mg Tab RxNorm: 711699 2 Tablet(s) PO Q4-6H prn 10/20/2010 01/08/2011 Inactive Diltzac ER 240 mg Cap RxNorm: 079011 1 Capsule(s) PO QD 07/14/2010 Inactive Nortriptyline 75 mg Cap RxNorm: 052297 1 Capsule(s) PO QHS 05/09/20 10 01/12/2019 Inactive Neurontin 600 mg Tab RxNorm: 079896 1 Tablet(s) PO QD 03/17/201012/17 Inactive Nortriptyline 75 mg Cap RxNorm: 996575 1 Capsule(s) PO 01/12/2010 Inactive Nortriptyline 50 mg Cap RxNorm: 446989 1 Capsule(s) PO QHS 01/13/20 10 01/11/2010 Inactive Diltzac ER 240 mg Cap RxNorm: 762267 1 Capsule(s) PO QD 12/06/2009 Inactive aspirin 81 mg Tab RxNorm: 224878 1 Tablet(s) PO QD No Start Date Active Vitamin D3 2,000 unit tablet RxNorm: 167144 1 Tablet(s) PO QD No Star t Date Active [id number]-[id number] complex no.233 oral RxNorm: oral No Start Date Active primidone 50 mg tablet RxNorm: 455030 2 Tablet(s) PO BID No Start Date Active Prilosec 40 mg Capsule, delayed release RxNorm: 941060 1 Capsul e(s) PO QD No Start Date 03/18/2012 Inactive Prilosec 20 mg Cap RxNorm: 344817 1 Capsule(s) PO QHS No Start Date 0 01/02/2011 Inactive primidone 50 mg tablet RxNorm: 964054 1/2 Tablet(s) PO QHS for 1week then go full tab if needed No Start Date 05/01/2017 Inactive ProAir HFA 90 mcg/actuation aerosol inhaler RxNorm: 100024 2 Puff(s) INH Q4H as needed No Start Date 10/29/2017 Inactive clonazepam 0.5 mg tablet RxNorm: 562183 1/2 Tablet(s) PO BID No Sta rt Date 02/12/2017 Inactive Pepcid AC 10 mg Tab RxNorm: 907462 1 Tablet(s) PO QAM No Start Date 0 02/19/2011 Inactive Coreg Oral RxNorm: Oral No Start Date 01/12/2014 Inactive primidone 50 mg tablet RxNorm: 378888 1/2 Tablet(s) PO QD for 7 days then increase to 1 tablet at bedtime No Start Date 01/08/2017 Inactive Medrol (Jose) 4 mg tablets in a dose pack RxNorm: 714211 Tablet(s) PO As Directed No Start Date 01/12/2016 Inactive Plavix 75 mg tablet RxNorm: 817929 1 Tablet(s) PO QD No Start Date Inactive cyclobenzaprine 10 mg tablet RxNorm: 860014 1 Tablet(s) PO TID as needed for spasm No Start Date 07/03/2013 Inactive Bevespi Aerosphere 9 mcg-4.8 mcg HFA aerosol inhaler RxNorm: 1756983 2 Puff(s) INH BID No Start Date 02/18/2019 Inactive tramadol 50 mg tablet RxNorm: 692618 1-2 Tablet(s) PO TID as ne eded for pain No Start Date 01/12/2019 Inactive clonazepam 1 mg tablet RxNorm: 857060 1 Tablet(s) PO QAM No Start D ate 09/18/2018 Inactive hydrocodone-acetaminophen 5 mg-500 mg Tab RxNorm: 031594 2 Tablet(s) PO Q4-6H prn No Start Date 10/19/2010 Inactive lisinopril 20 mg Tab RxNorm: 729533 1/2 Tablet(s) PO QD No Start Da te 03/12/2011 Inactive Lyrica 75 mg capsule RxNorm: 927040 1 Capsule(s) PO QHS No Start Da te 10/08/2019 Inactive Protonix 40 mg tablet,delayed release RxNorm: 150865 1 Tablet(s ) PO QD No Start Date 06/07/2014 Inactive Lipitor Oral RxNorm: Oral No Start Date 01/12/2014 Inactive primidone 50 mg tablet RxNorm: 312370 2 Tablet(s) PO QAM and 1 tablet at HS No Start Date 02/17/2019 Inactive hydrocodone-acetaminophen 10 mg-325 mg Tab RxNorm: 9630169 1-2 T ablet(s) PO QID No Start Date 02/13/2011 Inactive Ultram 50 mg tablet RxNorm: 190809 1-2 Tablet(s) PO QID as need ed for pain No Start Date 09/18/2012 Inactive Effient 10 mg Tab RxNorm: 259877 1 Tablet(s) PO QD No Start Date 01/2012 Inactive Bevespi Aerosphere 9 mcg-4.8 mcg HFA aerosol inhaler RxNorm: 9328377 2 Puff(s) INH BID No Start Date 10/29/2017 Inactive Neurontin Oral RxNorm: Oral No Start Date 01/12/2010 Inactive primidone 50 mg tablet RxNorm: 940475 1 Tablet(s) PO QD No Start Da te 01/12/2019 Inactive Chantix Starting Month Box 0.5 mg (11)-1 mg (42) Tabs in a Dose Pack RxNorm: 863013 Tablet(s) PO No Start Date 03/31/2012 Inactive atenolol 25 mg Tab RxNorm: 281991 1 Tablet(s) PO QD No Start Date 02/2012 Inactive Neurontin 600 mg Tab RxNorm: 925944 1 Tablet(s) PO QD No Start Date 0 03/16/2010 Inactive Nucynta 50 mg tablet RxNorm: 989720 1-2 Tablet(s) PO Q6H as nee ded for pain No Start Date 12/31/2012 Inactive simvastatin 40 mg Tab RxNorm: 983043 1 Tablet(s) PO QD No Start Date 03/21/2012 Inactive Medication Administered No Medication Administered data Immunizations Vaccine Codes Date Status Influenza CVX: 135 07/04/2017 Complete Results Observation Observation Code Item Item Code Result Date S ervice Location COMPLETE BLOOD COUNT [id number] WBC 4.9 10e9/L 09/30/19 20 Unknown COMPLETE BLOOD COUNT [id number] RBC 4.65 10e12/L 2019 Unknown COMPLETE BLOOD COUNT [id number] HEMOGLOBIN 13.8 g/dL 09/30/19 20 Unknown COMPLETE BLOOD COUNT [id number] HEMATOCRIT 42.3 % 09/30/19 20 Unknown COMPLETE BLOOD COUNT [id number] MCV 91.0 fL 0 Unknown COMPLETE BLOOD COUNT 1375578 MCH 29.7 pg 0 Unknown COMPLETE BLOOD COUNT 3205979 MCHC 32.6 g/dL 0 Unknown COMPLETE BLOOD COUNT [id number] PLATELET COUNT 230 10e9/L Unknown COMPLETE BLOOD COUNT 5567358 Mean Plt Volume 9.9 fL Unknown COMPLETE BLOOD COUNT 5435312 Neut Auto 52.5 % 0 Unknown COMPLETE BLOOD COUNT [id number] Lymph Auto 30.8 % 09/30/19 20 Unknown COMPLETE BLOOD COUNT 0339281 [place] Auto 11.2 % 0 Unknown COMPLETE BLOOD COUNT 3418812 RDW 13.5 % 0 Unknown COMPLETE BLOOD COUNT 9255671 Eos Auto 5.1 % 0 Unknown COMPLETE BLOOD COUNT 2387921 Baso Auto 0.4 % 0 Unknown COMPLETE BLOOD COUNT 9431006 Neutrophil Abs 2.57 10e9/L Unknown COMPLETE BLOOD COUNT [id number] Lymphocyte Abs 1.51 10e9/L Unknown COMPLETE BLOOD COUNT [id number] Monocyte Abs 0.55 10e9/L 09/17 Unknown COMPLETE BLOOD COUNT 9727605 Eosinophil Abs 0.25 10e9/L Unknown COMPLETE BLOOD COUNT [id number] RDW-SD 43.9 fL 0 Unknown COMPLETE BLOOD COUNT [id number] Basophil Abs 0.02 10e9/L 09/17 Unknown GFR CALC 2219667 GFR Non Afr Amr >60 mL/min 09/30/2019 Un known GFR CALC 9872785 GFR Afr Amr >60 mL/min 09/30/2019 Unknow n THYROID STIMULATING HORMONE 15808 TSH 1.129 uIU/mL 09/30/2019 Unknown PSA EQUIMOLAR BARBIE 18736 PSA Total 0.77 ng/mL 0 Unknown [facility] 26475 Cholesterol 192 mg/dL 09/30/2019 Unkno wn [facility] 93137 Triglyceride 86 mg/dL 09/30/2019 Unkn own L[facility] 36086 HDL CHOLESTEROL 64 mg/dL 09/30/2019 U nknown L[facility] 23832 Chol/HDL Ratio 3.00 ratio 09/30/2019 U nknown L[facility] GROUP 46925 NON-HDL Chol 128 mg/dL 09/30/2019 Unkn own L[facility] 31360 LDL Cholesterol 111 mg/dL 09/30/2019 U nknown COMPREHENSIVE METABOLIC 41071 AST 17 U/L 2019 Unknown COMPREHENSIVE METABOLIC 76575 ALT 10 U/L 2019 Unknown COMPREHENSIVE METABOLIC 70668 BUN 13 mg/dL 2019 Unknown COMPREHENSIVE METABOLIC 37486 ALBUMIN 4.3 g/dL 2019 Unknown COMPREHENSIVE METABOLIC 58497 CHLORIDE 102 mmol/L 09/30 Unknown COMPREHENSIVE METABOLIC 91881 Bili Total 0.6 mg/dL 09/30 Unknown COMPREHENSIVE METABOLIC 04080 ALK PHOS 91 U/L 2019 Unknown COMPREHENSIVE METABOLIC 32278 SODIUM 138 mmol/L 09/30 Unknown COMPREHENSIVE METABOLIC 85729 CREATININE 1.09 mg/dL 09/17 Unknown COMPREHENSIVE METABOLIC 16459 CALCIUM 9.0 mg/dL 2019 Unknown COMPREHENSIVE METABOLIC 72664 POTASSIUM 4.5 mmol/L 09/30 Unknown COMPREHENSIVE METABOLIC 38127 Total Protein 6.8 g/dL Unknown COMPREHENSIVE METABOLIC 89098 Glucose 91 mg/dL 2019 Unknown COMPREHENSIVE METABOLIC 78000 Bicarbonate 28 mmol/L 09/17 Unknown COMPREHENSIVE METABOLIC 48299 AGAP 8 mmol/L 2019 Unknown COMPLETE BLOOD COUNT 0255478 WBC 4.9 10e9/L 09/04/20 18 Unknown COMPLETE BLOOD COUNT [id number] RBC 4.42 10e12/L 2017 Unknown COMPLETE BLOOD COUNT 7413991 HEMOGLOBIN 13.4 g/dL 09/04/20 18 Unknown COMPLETE BLOOD COUNT 8087722 HEMATOCRIT 40.5 % 09/04/20 18 Unknown COMPLETE BLOOD COUNT 1627119 MCV 91.6 fL 8 Unknown COMPLETE BLOOD COUNT 4566768 MCH 30.3 pg 8 Unknown COMPLETE BLOOD COUNT 6902922 MCHC 33.1 g/dL 8 Unknown COMPLETE BLOOD COUNT 9809182 PLATELET COUNT 224 10e9/L Unknown COMPLETE BLOOD COUNT 2713064 Mean Plt Volume 9.9 fL Unknown COMPLETE BLOOD COUNT 9030923 Neut Auto 60.8 % 8 Unknown COMPLETE BLOOD COUNT [id number] Lymph Auto 26.8 % 09/04/20 18 Unknown COMPLETE BLOOD COUNT 8795624 [place] Auto 10.4 % 8 Unknown COMPLETE BLOOD COUNT 3873820 RDW 12.8 % 8 Unknown COMPLETE BLOOD COUNT 5466199 Eos Auto 1.6 % 8 Unknown COMPLETE BLOOD COUNT 2623990 Baso Auto 0.4 % 8 Unknown COMPLETE BLOOD COUNT 2527402 Neutrophil Abs 2.98 10e9/L Unknown COMPLETE BLOOD COUNT [id number] Lymphocyte Abs 1.31 10e9/L Unknown COMPLETE BLOOD COUNT 7156393 Monocyte Abs 0.51 10e9/L 08/17 Unknown COMPLETE BLOOD COUNT [id number] Eosinophil Abs 0.08 10e9/L Unknown COMPLETE BLOOD COUNT 4979556 RDW-SD 41.6 fL 8 Unknown COMPLETE BLOOD COUNT 9797808 Basophil Abs 0.02 10e9/L 08/17 Unknown COMPREHENSIVE METABOLIC 85274 AST 16 U/L 2017 Unknown COMPREHENSIVE METABOLIC 46156 ALT 8 U/L 2017 Unknown COMPREHENSIVE METABOLIC 95098 BUN 12 mg/dL 2017 Unknown COMPREHENSIVE METABOLIC 48432 ALBUMIN 4.4 g/dL 2017 Unknown COMPREHENSIVE METABOLIC 26837 CHLORIDE 107 mmol/L 09/04 Unknown COMPREHENSIVE METABOLIC 80105 Bili Total 1.0 mg/dL 09/04 Unknown COMPREHENSIVE METABOLIC 71819 ALK PHOS 58 U/L 2017 Unknown COMPREHENSIVE METABOLIC 96304 SODIUM 142 mmol/L 09/04 Unknown COMPREHENSIVE METABOLIC 90972 CREATININE 0.97 mg/dL 08/17 Unknown COMPREHENSIVE METABOLIC 13156 CALCIUM 9.2 mg/dL 2017 Unknown COMPREHENSIVE METABOLIC 43206 POTASSIUM 4.6 mmol/L 09/04 Unknown COMPREHENSIVE METABOLIC 37721 Total Protein 6.5 g/dL Unknown COMPREHENSIVE METABOLIC 24161 Glucose 96 mg/dL 2017 Unknown COMPREHENSIVE METABOLIC 15457 Bicarbonate 29 mmol/L 08/17 Unknown COMPREHENSIVE METABOLIC 47490 AGAP 6 mmol/L 2017 Unknown LIPID GROUP 05831 Cholesterol 182 mg/dL 09/04/2018 Unkno wn LIP[facility] GROUP 49352 Triglyceride 84 mg/dL 09/04/2018 Unkn own LIP[facility] GROUP 04569 HDL CHOLESTEROL 76 mg/dL 09/04/2018 U nknown L[facility] GROUP 48002 Chol/HDL Ratio 2.39 ratio 09/04/2018 U nknown LIP[facility] GROUP 67195 NON-HDL Chol 106 mg/dL 09/04/2018 Unkn own LIP[facility] GROUP 17348 LDL Cholesterol 89 mg/dL 09/04/2018 U nknown GFR CALC 9539444 GFR Non Afr Amr >60 mL/min 09/04/2018 Un known GFR CALC 1370223 GFR Afr Amr >60 mL/min 09/04/2018 Unknow n THYROID STIMULATING HORMONE 43434 TSH 0.713 uIU/mL 09/04/2018 Unknown PSA EQUIMOLAR BARBIE 80102 PSA Total 0.66 ng/mL 8 Unknown A FOOD C P 9252022 [place] Cl Class 0 11/17/2017 Unknown A FOOD C P 2548062 [place] Ct <0.35 kU/L 11/17/2017 Unknow n A FOOD C P 6089111 [place] Cl Class 0 11/17/2017 Unkn own A FOOD C P 8080725 [place] [facility] <0.35 kU/L 11/17/2017 Unk nown A FOOD C P 9616854 Egg White Cl Class 0 11/17/2017 Unkno wn A FOOD C P 5823991 Egg White Ct <0.35 kU/L 11/17/2017 Unkn own A FOOD C P 7435831 Egg Yolk Cl Class 0 11/17/2017 Unknow n A FOOD C P 5040902 Egg Yolk Ct <0.35 kU/L 11/17/2017 Unkno wn A FOOD C P 3269901 Cow Milk Cl Class 0 11/17/2017 Unknow n A FOOD C P 8660090 Cow Milk Ct <0.35 kU/L 11/17/2017 Unkno wn A FOOD C P 7549641 Peanut Cl Class 0 11/17/2017 Unknown A FOOD C P 4304059 Peanut Ct <0.35 kU/L 11/17/2017 Unknown A FOOD C P 9609234 Shrimp Cl Class 0 11/17/2017 Unknown A FOOD C P 1312845 Shrimp Ct <0.35 kU/L 11/17/2017 Unknown A FOOD C P 7253105 [place] Cl Class 0 11/17/2017 Unknown A FOOD C P 5766979 [place] Ct <0.35 kU/L 11/17/2017 Unknow n A FOOD C P 9959937 Wheat Cl Class 0 11/17/2017 Unknown A FOOD C P 7596165 Wheat Ct <0.35 kU/L 11/17/2017 Unknown A FOOD C P 8716925 Potato Cl Class 0 11/17/2017 Unknown A FOOD C P 4093881 Potato Ct <0.35 kU/L 11/17/2017 Unknown A FOOD C P 7696750 Beef Cl Class 2 11/17/2017 Unknown A FOOD C P 9020652 Beef Ct 0.88 kU/L 11/17/2017 Unknown A FOOD C P 6351146 [place] Cl Class 0 11/17/2017 Unknown A FOOD C P 9782137 [place] Ct <0.35 kU/L 11/17/2017 Unknown A FOOD C P [id number] Pork Cl Class 0 11/17/2017 Unknown A FOOD C P 1014517 Pork Ct <0.35 kU/L 11/17/2017 Unknown A FOOD C P 5173134 [place] Cl Class 0 11/17/2017 Unknown A FOOD C P [id number] [place] Ct <0.35 kU/L 11/17/2017 Unknown A FOOD C P 4183990 [place] Cl Class 0 11/17/2017 Unkn own A FOOD C P 9893274 [place] Ct <0.35 kU/L 11/17/2017 Unk nown A FOOD C P [id number] Tomato Cl Class 0 11/17/2017 Unknown A FOOD C P 7694348 Tomato Ct <0.35 kU/L 11/17/2017 Unknown A FOOD C P 0830167 Tuna Cl Class 0 11/17/2017 Unknown A FOOD C P 2948354 Tuna Ct <0.35 kU/L 11/17/2017 Unknown A FOOD C P 6077436 [place] CL Class 0 11/17/2017 Unknown A FOOD C P 1545835 [place] CT <0.35 kU/L 11/17/2017 Unknown A FOOD C P 5701540 Casein Cl Class 0 11/17/2017 Unknown A FOOD C P 3521883 Casein Ct <0.35 kU/L 11/17/2017 Unknown A FOOD C P 0619524 Oat Cl Class 0 11/17/2017 Unknown A FOOD C P 2557674 Oat Ct <0.35 kU/L 11/17/2017 Unknown A FOOD C P 9326219 [place] Cl Class 0 11/17/2017 Unknown A FOOD C P 7589420 [place] Ct <0.35 kU/L 11/17/2017 Unknown A FOOD C P 0314772 Chicken Meat CL Class 0 11/17/2017 Un known A FOOD C P 3060408 Chicken Meat Ct <0.35 kU/L 11/17/2017 U nknown A FOOD C P 0167402 [place] Cl Class 0 11/17/2017 Unknown A FOOD C P 3233279 [place] Ct <0.35 kU/L 11/17/2017 Unknown A FOOD C P 7109332 Pecan Meat Cl Class 0 11/17/2017 Unkn own A FOOD C P 2729441 [place]ecan Meat Ct <0.35 kU/L 11/17/2017 Unk nown A NUTS PNL 4093830 Peanut Cl Class 0 11/17/2017 Unknown A NUTS PNL 2499128 Peanut Ct <0.35 kU/L 11/17/2017 Unknown A NUTS PNL 0820811 [place] Meat Cl Class 0 11/17/2017 Unk nown A NUTS PNL 5897926 [place] Ct <0.35 kU/L 11/17/2017 Un known A NUTS PNL 0855571 Pec[place] Meat Cl Class 0 11/17/2017 Unkn own A NUTS PNL 7236308 [place]ec[place] Meat Ct <0.35 kU/L 11/17/2017 Unk nown A NUTS PNL 3979798 [place] Cl Class 0 11/17/2017 Unknown A NUTS PNL 0027668 [place] Ct <0.35 kU/L 11/17/2017 Unknown A NUTS PNL 4456336 [place] Cl Class 0 11/17/2017 Unknow n A NUTS PNL 6294915 [place] Ct <0.35 kU/L 11/17/2017 Unkno wn A NUTS PNL 9323569 [place] Cl Class 0 11/17/2017 Unkno wn A NUTS PNL 3130318 [place] Ct <0.35 kU/L 11/17/2017 Unkn own A NUTS PNL 7874507 [place] Cl Class 0 11/17/2017 Unknown A NUTS PNL 6874093 [place] Ct <0.35 kU/L 11/17/2017 Unknown A NUTS PNL 3981094 [place] Cl Class 0 11/17/2017 Unkno wn A NUTS PNL 2035336 [place] Ct <0.35 kU/L 11/17/2017 Unkn own A NUTS PNL 5009185 Allergen Interp See Note 11/17/2017 Un known A FRT/VG P 7260690 [place] Cl Class 0 11/17/2017 Unkn own A FRT/VG P 5346825 [place] [facility] <0.35 kU/L 11/17/2017 Unk nown A FRT/VG P 4846069 Potato Cl Class 0 11/17/2017 Unknown A FRT/VG P 5737194 Potato Ct <0.35 kU/L 11/17/2017 Unknown A FRT/VG P 2439142 [place] Cl Class 0 11/17/2017 Unkn own A FRT/VG P 0901951 [place] Ct <0.35 kU/L 11/17/2017 Unk nown A FRT/VG P [id number] [place] Cl Class 0 11/17/2017 Unknown A FRT/VG P 3864864 [place] Ct <0.35 kU/L 11/17/2017 Unknown A FRT/VG P 7798790 [place] Cl Class 0 11/17/2017 Unknown A FRT/VG P 2180718 [place] Ct <0.35 kU/L 11/17/2017 Unknown A FRT/VG P 6706096 [place] Cl Class 1 11/17/2017 Unknown A FRT/VG P 4778949 [place] Ct 0.48 kU/L 11/17/2017 Unknown A FRT/VG P 3373219 [place] Fruit Cl Class 0 11/17/2017 Unk nown A FRT/VG P 3471048 [place] Ct <0.35 kU/L 11/17/2017 Un known A FRT/VG P [id number] [place] Fruit Cl Class 0 11/17/2017 Unk nown A FRT/VG P [id number] [place] Ct <0.35 kU/L 11/17/2017 Un known A FRT/VG P [id number] [place] Cl Class 0 11/17/2017 Unknown A FRT/VG P 9028859 [place] Ct <0.35 kU/L 11/17/2017 Unknown A FRT/VG P 1493958 Pea Cl Class 0 11/17/2017 Unknown A FRT/VG P 8600756 Pea Ct <0.35 kU/L 11/17/2017 Unknown A FRT/VG P 1317970 [place] Fruit Cl Class 0 11/17/2017 Unkn own A FRT/VG P 9642564 [place] Ct <0.35 kU/L 11/17/2017 Unk nown A FRT/VG P 8360506 Swt [place] Cl Class 0 11/17/2017 Unkn own A FRT/VG P [id number] Swt [place] Ct <0.35 kU/L 11/17/2017 Unk nown THYROID STIMULATING HORMONE 01547 TSH 1.371 uIU/mL 09/03/2017 Unknown FREE T4 11261 T4 Free 1.26 ng/dL 09/03/2017 Unknown ASSAY TRIIODOTHYRONINE (T3) 27954 T3 Total 0.9 ng/mL Unknown COMPLETE BLOOD COUNT [id number] WBC 5.9 10e9/L 07/31/20 17 Unknown COMPLETE BLOOD COUNT [id number] RBC 4.64 10e12/L 2016 Unknown COMPLETE BLOOD COUNT 2212303 HEMOGLOBIN 14.2 g/dL 07/31/20 17 Unknown COMPLETE BLOOD COUNT [id number] HEMATOCRIT 42.1 % 07/31/20 17 Unknown COMPLETE BLOOD COUNT 2997538 MCV 90.7 fL 7 Unknown COMPLETE BLOOD COUNT 8712394 MCH 30.6 pg 7 Unknown COMPLETE BLOOD COUNT 8810951 MCHC 33.7 g/dL 7 Unknown COMPLETE BLOOD COUNT 2469830 PLATELET COUNT 195 10e9/L Unknown COMPLETE BLOOD COUNT 6656794 Mean Plt Volume 10.0 fL Unknown COMPLETE BLOOD COUNT 0414454 Neut Auto 47.5 % 7 Unknown COMPLETE BLOOD COUNT 5639265 Lymph Auto 37.4 % 07/31/20 17 Unknown COMPLETE BLOOD COUNT 7275755 [place] Auto 11.7 % 7 Unknown COMPLETE BLOOD COUNT 9431352 Eos Auto 3.2 % 7 Unknown COMPLETE BLOOD COUNT 3787893 RDW 12.8 % 7 Unknown COMPLETE BLOOD COUNT 3060283 Baso Auto 0.2 % 7 Unknown COMPLETE BLOOD COUNT 2385786 Neutrophil Abs 2.80 10e9/L Unknown COMPLETE BLOOD COUNT 5368454 Lymphocyte Abs 2.21 10e9/L Unknown COMPLETE BLOOD COUNT 1164179 Monocyte Abs 0.69 10e9/L 07/18 Unknown COMPLETE BLOOD COUNT 6565378 Eosinophil Abs 0.19 10e9/L Unknown COMPLETE BLOOD COUNT 2114127 RDW-SD 41.6 fL 7 Unknown COMPLETE BLOOD COUNT [id number] Basophil Abs 0.01 10e9/L 07/18 Unknown LIPID GROUP 82110 Cholesterol 186 mg/dL 07/31/2017 Unkno wn LIPID GROUP 07836 Triglyceride 129 mg/dL 07/31/2017 Unkn own LIPID GROUP 18199 HDL CHOLESTEROL 79 mg/dL 07/31/2017 U nknown LIPID GROUP 55175 Chol/HDL Ratio 2.35 ratio 07/31/2017 U nknown LIPID GROUP 19940 NON-HDL Chol 107 mg/dL 07/31/2017 Unkn own LIPID GROUP 67240 LDL Cholesterol 81 mg/dL 07/31/2017 U nknown GFR CALC 2118481 GFR Non Afr Amr >60 mL/min 07/31/2017 Un known GFR CALC 5544035 GFR Afr Amr >60 mL/min 07/31/2017 Unknow n COMPREHENSIVE METABOLIC 65360 AST 19 U/L 2016 Unknown COMPREHENSIVE METABOLIC 03405 ALT 12 U/L 2016 Unknown COMPREHENSIVE METABOLIC 94755 BUN 15 mg/dL 2016 Unknown COMPREHENSIVE METABOLIC 64715 ALBUMIN 4.4 g/dL 2016 Unknown COMPREHENSIVE METABOLIC 12508 CHLORIDE 102 mmol/L 07/31 Unknown COMPREHENSIVE METABOLIC 77256 Bili Total 0.9 mg/dL 07/31 Unknown COMPREHENSIVE METABOLIC 83287 ALK PHOS 53 U/L 2016 Unknown COMPREHENSIVE METABOLIC 08683 SODIUM 138 mmol/L 07/31 Unknown COMPREHENSIVE METABOLIC 84069 CREATININE 1.06 mg/dL 07/18 Unknown COMPREHENSIVE METABOLIC 53998 CALCIUM 9.3 mg/dL 2016 Unknown COMPREHENSIVE METABOLIC 86747 POTASSIUM 4.0 mmol/L 07/31 Unknown COMPREHENSIVE METABOLIC 01189 Total Protein 6.8 g/dL Unknown COMPREHENSIVE METABOLIC 22845 Glucose 86 mg/dL 2016 Unknown COMPREHENSIVE METABOLIC 37481 Bicarbonate 28 mmol/L 07/18 Unknown COMPREHENSIVE METABOLIC 06604 AGAP 8 mmol/L 2016 Unknown COMPREHENSIVE METABOLIC 46810 AST 18 U/L 2015 Unknown COMPREHENSIVE METABOLIC 12991 ALT 9 U/L 2015 Unknown COMPREHENSIVE METABOLIC 91259 BUN 11 mg/dL 2015 Unknown COMPREHENSIVE METABOLIC 62743 ALBUMIN 4.2 g/dL 2015 Unknown COMPREHENSIVE METABOLIC 82200 CHLORIDE 104 mmol/L 05/19 Unknown COMPREHENSIVE METABOLIC 08834 Bili Total 1.2 mg/dL 05/19 Unknown COMPREHENSIVE METABOLIC 55056 ALK PHOS 54 U/L 2015 Unknown COMPREHENSIVE METABOLIC 87750 SODIUM 140 mmol/L 05/19 Unknown COMPREHENSIVE METABOLIC 21022 CREATININE 1.03 mg/dL 10/2015 Unknown COMPREHENSIVE METABOLIC 30844 CALCIUM 9.3 mg/dL 2015 Unknown COMPREHENSIVE METABOLIC 27568 POTASSIUM 4.9 mmol/L 05/19 Unknown COMPREHENSIVE METABOLIC 43104 Total Protein 6.7 g/dL Unknown COMPREHENSIVE METABOLIC 83317 Glucose 92 mg/dL 2015 Unknown COMPREHENSIVE METABOLIC 14099 Bicarbonate 28 mmol/L 10/2015 Unknown COMPREHENSIVE METABOLIC 76597 AGAP 8 mmol/L 2015 Unknown THYROID STIMULATING HORMONE 10813 TSH 1.545 uIU/mL 05/19/2016 Unknown GFR CALC 7666269 GFR Non Afr Amr >60 mL/min 05/19/2016 Un known GFR CALC 7470492 GFR Afr Amr >60 mL/min 05/19/2016 Unknow n VITAMIN B 12 20142 VITAMIN B12 298 pg/mL 05/19/2016 Unkn own COMPLETE BLOOD COUNT [id number] WBC 5.2 10e9/L 05/19/20 16 Unknown COMPLETE BLOOD COUNT [id number] RBC 4.34 10e12/L 2015 Unknown COMPLETE BLOOD COUNT 0656642 HEMOGLOBIN 12.9 g/dL 05/19/20 16 Unknown COMPLETE BLOOD COUNT [id number] HEMATOCRIT 38.9 % 05/19/20 16 Unknown COMPLETE BLOOD COUNT 1251297 MCV 89.6 fL 6 Unknown COMPLETE BLOOD COUNT 0456202 MCH 29.7 pg 6 Unknown COMPLETE BLOOD COUNT 5447699 MCHC 33.2 g/dL 6 Unknown COMPLETE BLOOD COUNT 1019932 PLATELET COUNT 200 10e9/L 10/2015 Unknown COMPLETE BLOOD COUNT 8581194 Mean Plt Volume 10.1 fL 10/2015 Unknown COMPLETE BLOOD COUNT 3406774 Neut Auto 45.4 % 6 Unknown COMPLETE BLOOD COUNT 4172979 Lymph Auto 35.6 % 05/19/20 16 Unknown COMPLETE BLOOD COUNT 3771847 [place] Auto 11.9 % 6 Unknown COMPLETE BLOOD COUNT 1062154 RDW 12.7 % 6 Unknown COMPLETE BLOOD COUNT 6039771 Eos Auto 6.7 % 6 Unknown COMPLETE BLOOD COUNT 6380891 Baso Auto 0.4 % 6 Unknown COMPLETE BLOOD COUNT 4162840 Neutrophil Abs 2.36 10e9/L Unknown COMPLETE BLOOD COUNT 9612295 Lymphocyte Abs 1.85 10e9/L Unknown COMPLETE BLOOD COUNT 8228692 Monocyte Abs 0.62 10e9/L 10/2015 Unknown COMPLETE BLOOD COUNT 6287573 Eosinophil Abs 0.35 10e9/L Unknown COMPLETE BLOOD COUNT 3301082 RDW-SD 40.6 fL 6 Unknown COMPLETE BLOOD COUNT 5771301 Basophil Abs 0.02 10e9/L 10/2015 Unknown LIPID GROUP 19993 Cholesterol 197 mg/dL 05/19/2016 Unkno wn LIPID GROUP 57405 Triglyceride 92 mg/dL 05/19/2016 Unkn own LIPID GROUP 77246 HDL CHOLESTEROL 58 mg/dL 05/19/2016 U nknown LIPID GROUP 96891 Chol/HDL Ratio 3.40 ratio 05/19/2016 U nknown LIPID GROUP 62864 NON-HDL Chol 139 mg/dL 05/19/2016 Unkn own LIPID GROUP 27614 LDL Cholesterol 121 mg/dL 05/19/2016 U nknown FREE T4 57643 T4 Free 1.19 ng/dL 05/19/2016 Unknown COMPREHENSIVE METABOLIC 74573 AST 19 U/L 2014 Unknown COMPREHENSIVE METABOLIC 81641 ALT 10 IU/L 2014 Unknown COMPREHENSIVE METABOLIC 86082 BUN 20 MG/DL 2014 Unknown COMPREHENSIVE METABOLIC 41740 ALBUMIN 4.4 GM/DL 2014 Unknown COMPREHENSIVE METABOLIC 79257 CHLORIDE 104 MMOL/L 04/05 Unknown COMPREHENSIVE METABOLIC 20856 BILI TOT 2.2 MG/DL 2014 Unknown COMPREHENSIVE METABOLIC 57930 ALK PHOS 55 U/L 2014 Unknown COMPREHENSIVE METABOLIC 64733 SODIUM 138 MMOL/L 04/05 Unknown COMPREHENSIVE METABOLIC 73115 CREATININE 1.04 MG/DL 03/18 Unknown COMPREHENSIVE METABOLIC 33356 CALCIUM 9.3 MG/DL 2014 Unknown COMPREHENSIVE METABOLIC 69142 POTASSIUM 4.5 MMOL/L 04/05 Unknown COMPREHENSIVE METABOLIC 62829 PROT TOT 6.7 GM/DL 2014 Unknown COMPREHENSIVE METABOLIC 69266 Glucose 77 MG/DL 2014 Unknown COMPREHENSIVE METABOLIC 54027 BICARB 25 MMOL/L 2014 Unknown COMPREHENSIVE METABOLIC 41531 ANION GAP 9 MEQ/L 2014 Unknown GFR CALC 3292946 GFR AA >60 ML/MIN 04/05/2015 Unknown GFR CALC 7900335 GFR NON-AA >60 ML/MIN 04/05/2015 Unknown LIPID GROUP 08266 HDL TEST 60 MG/DL 04/05/2015 Unknown LIPID GROUP 98717 TRIG 70 MG/DL 04/05/2015 Unknown LIPID GROUP 33132 TEST LDL 137 MG/DL 04/05/2015 Unknown LIPID GROUP 13418 CHOL 211 MG/DL 04/05/2015 Unknown LIPID GROUP 76020 RCHOL/HDL 3.52 RATIO 04/05/2015 Unknow n LIPID GROUP 55032 NON-HDL CH 151 MG/DL 04/05/2015 Unknow n COMPLETE BLOOD COUNT 9438340 WBC 5.3 10e9/L 04/05/20 15 Unknown COMPLETE BLOOD COUNT 8294352 RBC 4.42 10e12/L 2014 Unknown COMPLETE BLOOD COUNT 6874024 HGB 13.4 g/dL 5 Unknown COMPLETE BLOOD COUNT 6930251 HCT DET 39.6 % 5 Unknown COMPLETE BLOOD COUNT 4236607 MCV 89.6 fL 5 Unknown COMPLETE BLOOD COUNT 6513873 MCH 30.3 pg 5 Unknown COMPLETE BLOOD COUNT 8243788 MCHC 33.8 g/dL 5 Unknown COMPLETE BLOOD COUNT 1669134 PLT 201 10e9/L 04/05/20 15 Unknown COMPLETE BLOOD COUNT 5135588 MPV 10.3 fL 5 Unknown COMPLETE BLOOD COUNT 3268536 LUPE % 56.4 % 5 Unknown COMPLETE BLOOD COUNT 3994880 LY % 24.8 % 5 Unknown COMPLETE BLOOD COUNT 6162394 MON % 12.8 % 5 Unknown COMPLETE BLOOD COUNT 0980233 EOS % 5.4 % 5 Unknown COMPLETE BLOOD COUNT 5709596 BASO % 0.6 % 5 Unknown COMPLETE BLOOD COUNT 3876243 RDW 13.2 % 5 Unknown COMPLETE BLOOD COUNT 4691600 ABS LUPE 2.99 10e9/L 015 Unknown COMPLETE BLOOD COUNT 4297105 ABS LYMPH 1.31 10e9/L 015 Unknown COMPLETE BLOOD COUNT [id number] ABS MONO 0.68 10e9/L 015 Unknown COMPLETE BLOOD COUNT 2210585 ABS EOS 0.29 10e9/L 015 Unknown COMPLETE BLOOD COUNT 8707302 ABS BASO 0.03 10e9/L 015 Unknown COMPLETE BLOOD COUNT 0177069 RDW-SD 42.3 fL 5 Unknown LIPID GROUP 27710 HDL TEST 51 MG/DL 07/19/2012 Unknown LIPID GROUP 31455 TRIG 129 MG/DL 07/19/2012 Unknown LIPID GROUP 64139 TEST LDL 98 MG/DL 07/19/2012 Unknown LIPID GROUP 76587 CHOL 175 MG/DL 07/19/2012 Unknown LIPID GROUP 65903 RCHOL/HDL 3.43 RATIO 07/19/2012 Unknow n COMPREHENSIVE METABOLIC 11379 AST 18 U/L 2011 Unknown COMPREHENSIVE METABOLIC 27152 ALT 12 IU/L 2011 Unknown COMPREHENSIVE METABOLIC 95388 BUN 10 MG/DL 2011 Unknown COMPREHENSIVE METABOLIC 07113 ALBUMIN 4.1 GM/DL 2011 Unknown COMPREHENSIVE METABOLIC 35953 CHLORIDE 103 MMOL/L 07/19 Unknown COMPREHENSIVE METABOLIC 16638 BILI TOT 0.9 MG/DL 2011 Unknown COMPREHENSIVE METABOLIC 45505 ALK PHOS 62 U/L 2011 Unknown COMPREHENSIVE METABOLIC 59784 SODIUM 138 MMOL/L 07/19 Unknown COMPREHENSIVE METABOLIC 93652 CREATININE 1.08 MG/DL 10/2011 Unknown COMPREHENSIVE METABOLIC 37630 CALCIUM 9.1 MG/DL 2011 Unknown COMPREHENSIVE METABOLIC 11669 POTASSIUM 4.2 MMOL/L 07/19 Unknown COMPREHENSIVE METABOLIC 96182 PROT TOT 6.7 GM/DL 2011 Unknown COMPREHENSIVE METABOLIC 58455 Glucose 101 MG/DL 2011 Unknown COMPREHENSIVE METABOLIC 83717 BICARB 27 MMOL/L 2011 Unknown COMPREHENSIVE METABOLIC 68275 ANION GAP 8 MEQ/L 2011 Unknown GFR CALC [id number] GFR AA >60 ML/MIN 07/19/2012 Unknown GFR CALC [id number] GFR NON-AA >60 ML/MIN 07/19/2012 Unknown Procedures Procedure Codes Date ROUTINE VENIPUNCTURE CPT-4: 29114 09/30/2019 COMPREHEN METABOLIC PANEL CPT-4: 24088 09/30/2019 COMPLETE CBC W/AUTO DIFF WBC CPT-4: 34203 09/30/2019 ASSAY OF PSA TOTAL CPT-4: 82766 09/30/2019 ASSAY THYROID STIM HORMONE CPT-4: 37442 09/30/2019 LIPID PANEL CPT-4: 16204 09/30/2019 ROUTINE VENIPUNCTURE CPT-4: 17389 09/24/2019 COMPLETE CBC W/AUTO DIFF WBC CPT-4: 68556 09/24/2019 COMPREHEN METABOLIC PANEL CPT-4: 62179 09/24/2019 LIPID PANEL CPT-4: 81179 09/24/2019 ASSAY THYROID STIM HORMONE CPT-4: 73877 09/24/2019 THER/PROPH/DIAG INJ SC/IM CPT-4: 38760 01/13/2019 TRIAMCINOLONE ACET INJ NOS CPT-4: J3301 01/13/2019 DEXAMETHASONE SODIUM PHOS CPT-4: J1100 01/13/2019 ROUTINE VENIPUNCTURE CPT-4: 62202 09/04/2018 COMPREHEN METABOLIC PANEL CPT-4: 76025 09/04/2018 COMPLETE CBC W/AUTO DIFF WBC CPT-4: 71843 09/04/2018 LIPID PANEL CPT-4: 01556 09/04/2018 ASSAY OF PSA TOTAL CPT-4: 82084 09/04/2018 ASSAY THYROID STIM HORMONE CPT-4: 98222 09/04/2018 URINALYSIS NONAUTO W/O SCOPE CPT-4: 56259 05/15/2018 ROUTINE VENIPUNCTURE CPT-4: 29309 11/16/2017 A FRT/VG P CPT-4: 5002739 11/16/2017 A FOOD C P CPT-4: 8597183 11/16/2017 A NUTS PNL CPT-4: 6618165 11/16/2017 THER/PROPH/DIAG INJ SC/IM CPT-4: 45456 11/06/2017 TRIAMCINOLONE ACET INJ NOS CPT-4: J3301 11/06/2017 DEXAMETHASONE SODIUM PHOS CPT-4: J1100 11/06/2017 ROUTINE VENIPUNCTURE CPT-4: 56277 09/03/2017 ASSAY OF FREE THYROXINE CPT-4: 41680 09/03/2017 ASSAY THYROID STIM HORMONE CPT-4: 72713 09/03/2017 ASSAY TRIIODOTHYRONINE (T3) CPT-4: 76892 09/03/2017 ROUTINE VENIPUNCTURE CPT-4: 46481 07/31/2017 COMPREHEN METABOLIC PANEL CPT-4: 63648 07/31/2017 COMPLETE CBC W/AUTO DIFF WBC CPT-4: 75417 07/31/2017 LIPID PANEL CPT-4: 89390 07/31/2017 FLU VACC PRSV FREE INC ANTIG 65 AND OLDER CPT-4: 03856 07/04/2017 ADMIN INFLUENZA VIRUS VAC CPT-4: G0008 07/04/2017 ROUTINE VENIPUNCTURE CPT-4: 44703 02/26/2017 ASSAY THYROID STIM HORMONE CPT-4: 30856 02/26/2017 COMPREHEN METABOLIC PANEL CPT-4: 18680 02/26/2017 COMPLETE CBC W/AUTO DIFF WBC CPT-4: 45544 02/26/2017 LIPID PANEL CPT-4: 11083 02/26/2017 ASSAY OF PSA TOTAL CPT-4: 30125 02/26/2017 FLUZONE, 5ML (Medicare) CPT-4: Q2038 06/28/2016 ADMIN INFLUENZA VIRUS VAC CPT-4: G0008 06/28/2016 ROUTINE VENIPUNCTURE CPT-4: 42056 05/19/2016 ASSAY OF FREE THYROXINE CPT-4: 82594 05/19/2016 ASSAY THYROID STIM HORMONE CPT-4: 94187 05/19/2016 COMPREHEN METABOLIC PANEL CPT-4: 59278 05/19/2016 COMPLETE CBC W/AUTO DIFF WBC CPT-4: 18472 05/19/2016 LIPID PANEL CPT-4: 77572 05/19/2016 VITAMIN B-12 CPT-4: 05993 05/19/2016 PPPS, initial visit CPT-4: G0438 05/10/2016 ROUTINE VENIPUNCTURE CPT-4: 53608 04/05/2015 ASSAY THYROID STIM HORMONE CPT-4: 99100 04/05/2015 COMPREHEN METABOLIC PANEL CPT-4: 28763 04/05/2015 COMPLETE CBC W/AUTO DIFF WBC CPT-4: 50379 04/05/2015 LIPID PANEL CPT-4: 44343 04/05/2015 ASSAY OF PSA TOTAL CPT-4: 52928 04/05/2015 ROUTINE VENIPUNCTURE CPT-4: 79029 07/19/2012 COMPREHEN METABOLIC PANEL CPT-4: 42280 07/19/2012 LIPID PANEL CPT-4: 89185 07/19/2012 ELECTROCARDIOGRAM COMPLETE CPT-4: 93612 03/22/2012 Vital Signs Date Vital 09/24/2019 Blood Pressure 1: 125/72 Code: 8480-6 BMI: 19.8 Code: 35925-1 Heart Rate 1: 88 bpm Height: 5'11" [...] 1: 102/60 Code: 8480-6 BMI: 19.1 Code: 04604-5 Heart Rate 1: 82 bpm Height: 5'11" Respiratory Rate: 22 bpm SpO2: 97% Tempera ture: 36.4 (C) / 97.6 (F) Weight: 137 lbs 04/25/2018 Blood Pressure 1: 118/64 Code: 8480-6 BMI: 19.2 Code: 97728-6 Heart Rate 1: 98 bpm Height: 5'11" Respiratory Rate: 20 bpm SpO2: 99% Tempera ture: 36.4 (C) / 97.6 (F) Weight: 138 lbs 11/06/2017 Blood Pressure 1: 108/68 Code: 8480-6 BMI: 18.5 Code: 83028-8 Heart Rate 1: 68 bpm Height: 5'11" Respiratory Rate: 20 bpm SpO2: 96% Tempera ture: 36.8 (C) / 98.2 (F) Weight: 133 lbs 09/03/2017 Blood Pressure 1: 122/64 Code: 8480-6 BMI: 17.6 Code: 87701-6 Heart Rate 1: 90 bpm Height: 5'11" Respiratory Rate: 20 bpm SpO2: 98% Tempera ture: 36.4 (C) / 97.6 (F) Weight: 126 lbs 08/21/2017 Blood Pressure 1: 114/80 Code: 8480-6 BMI: 17.9 Code: 62957-3 Heart Rate 1: 80 bpm Height: 5'11" Respiratory Rate: 20 bpm SpO2: 95% Tempera ture: 36.6 (C) / 97.9 (F) Weight: 128 lbs 02/13/2017 Blood Pressure 1: 122/60 Code: 8480-6 BMI: 18.5 Code: 79899-0 Heart Rate 1: 76 bpm Height: 5'11" Respiratory Rate: 20 bpm SpO2: 96% Tempera ture: 36.9 (C) / 98.4 (F) Weight: 133 lbs 11/23/2016 Blood Pressure 1: 126/70 Code: 8480-6 BMI: 18.5 Code: 02890-8 Heart Rate 1: 100 bpm Height: 5'11" Respiratory Rate: 20 bpm SpO2: 96% Tempera ture: 37.1 (C) / 98.8 (F) Weight: 133 lbs 05/23/2016 Blood Pressure 1: 128/82 Code: 8480-6 BMI: 18.5 Code: 11019-8 Heart Rate 1: 88 bpm Height: 5'11" Respiratory Rate: 20 bpm Temperature: 36 .7 (C) / 98.0 (F) Weight: 133 lbs 05/10/2016 Blood Pressure 1: 146/70 Code: 8480-6 BMI: 18.5 Code: 95657-1 Heart Rate 1: 84 bpm Height: 5'11" Respiratory Rate: 20 bpm Temperature: 36 .7 (C) / 98.1 (F) Weight: 133 lbs 04/01/2015 Blood Pressure 1: 102/60 Code: 8480-6 BMI: 18.5 Code: 51543-7 Heart Rate 1: 64 bpm Height: 5'11" Respiratory Rate: 20 bpm Temperature: 36 .8 (C) / 98.2 (F) Weight: 133 lbs 01/13/2014 Blood Pressure 1: 124/78 Code: 8480-6 BMI: 19.8 Code: 11184-9 Heart Rate 1: 76 bpm Height: 5'11" Respiratory Rate: 20 bpm Temperature: 36 .8 (C) / 98.2 (F) Weight: 142 lbs 04/03/2012 Blood Pressure 1: 106/76 Code: 8480-6 BMI: 20.9 Code: 47402-1 Heart Rate 1: 84 bpm Height: 5'11" Respiratory Rate: 20 bpm Temperature: 36 .7 (C) / 98.0 (F) Weight: 150 lbs 12/20/2011 Blood Pressure 1: 116/60 Code: 8480-6 BMI: 20.1 Code: 89306-0 Heart Rate 1: 80 bpm Height: 5'11" Respiratory Rate: 20 bpm Temperature: 36 .4 (C) / 97.6 (F) Weight: 144 lbs 10/24/2011 Blood Pressure 1: 132/74 Code: 8480-6 BMI: 19.7 Code: 51020-0 Heart Rate 1: 96 bpm Height: 5'11" [...] 04/01/2015 follow up 01/13/2014 [facility] November 2012 lab draw 07/19/2012 follow up 04/03/2012 S/P stent placement in LAD, changed effient to plavix hip pain 12/20/2011 dyskinesia or tremor 10/24/2011 follow up 03/13/2011 started on effient, zocor, and atenolol follow up 02/20/2011 [facility]/Dr Christian rojas follow up 02/23/2010 [facility], appt with Dr Bajwa 03/22/10 insomnia 01/12/2010 problems falling and staying asleep, takes nortriptyline Encounters Encounter Performer Location Codes Date () NURSE/OUTPATIENT VISIT EST Diagnosis: Essential (primary) hypertension[ICD10: I10] Diagnosis: Mixed hyperlipidemia[ICD10: E78.2] Diagnosis: Encounter for screening for malignant neoplasm of prostate[ICD10: Z12.5] Vonnie Loza [employer] CPT-4: 70121 09/30/2019 ([id number]) OFFICE/OUTPATIENT VISIT EST Diagnosis: Encounter for therapeutic drug level monitoring[ICD10: Z51.81] Diagnosis: Essential tremor[ICD10: G25.0] Verna Ramirez VONNIE Alvarez [employer] CPT-4: 63631 09/24/2019 ([id number]) OFFICE/OUTPATIENT VISIT EST Diagnosis: Noninfective gastroenteritis and colitis, unspecified[ICD10: K52.9] Diagnosis: Hemorrhage of anus and rectum[ICD10: K62.5] Vonnie Loza [employer] CPT-4: 66643 05/26/2019 ([id number]) OFFICE/OUTPATIENT VISIT EST Diagnosis: Other intervertebral disc degeneration, 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 CPT-4: 78757 02/18/2019 ([id number]) OFFICE/OUTPATIENT VISIT EST Diagnosis: Other allergic rhinitis[ICD10: J30.89] Akilah ALBERTO [employer] [address] [facility] CPT-4: 24919 01/13/2019 ([id number]) NURSE/OUTPATIENT VISIT EST Diagnosis: Mixed hyperlipidemia[ICD10: E78.2] Diagnosis: Essential (primary) hypertension[ICD10: I10] Diagnosis: Encounter for screening for malignant neoplasm of prostate[ICD10: Z12.5] Diagnosis: Encounter for general adult medical examination with abnormal findings[ICD10: Z00.01] Diagnosis: Benign prostatic hyperplasia without lower urinary tract symptoms[ICD10: N40.0] Vonnie MATHEWS [facility] CPT-4: 97933 09/04/2018 ([id number]) OFFICE/OUTPATIENT VISIT EST Diagnosis: Otorrhea, left ear[ICD10: H92.12] Diagnosis: Impacted cerumen, right ear[ICD10: H61.21] Verna MATHEWS 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 CPT-4: 87191 08/26/2018 ([id number]) OFFICE/OUTPATIENT VISIT EST Diagnosis: Pelvic and perineal pain[ICD10: R10.2] Verna ALBERTO [employer] 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 CPT-4: 78189 04/25/2018 ([id number]) OFFICE/OUTPATIENT VISIT EST Diagnosis: Idiopathic urticaria[ICD10: L50.1] Diagnosis: Other urticaria[ICD10: L50.8] Vonnie Mathews VONNIE Denia MATHEWS [facility] CPT-4: 90476 11/16/2017 ([id number]) OFFICE/OUTPATIENT VISIT EST Diagnosis: Idiopathic urticaria[ICD10: L50.1] Diagnosis: Other urticaria[ICD10: L50.8] Diagnosis: Other forms of dyspnea[ICD10: R06.09] Vonniefabricio RODGERS Denia MATHEWS [facility] CPT-4: 64158 11/06/2017 ([id number]) OFFICE/OUTPATIENT VISIT EST Diagnosis: Dyspnea, unspecified[ICD10: R06.00] Diagnosis: Abnormal weight loss[ICD10: R63.4] Vonnie LUCIA S. 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 ROMULONDER 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 CPT-4: 41878 02/26/2017 ([id number]) OFFICE/OUTPATIENT VISIT EST Diagnosis: Essential tremor[ICD10: G25.0] Vonnie MATHEWS DO 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 CPT-4: 04013 11/23/2016 ([id number]) OFFICE/OUTPATIENT VISIT EST Diagnosis: FLU VACCINE[ICD10: Z23] Vonnie GERMAN [facility] CPT-4: 09593 06/28/2016 OFFICE/OUTPATIENT VISIT EST Diagnosis: Open bite of right hand, initial encounter[ICD10: S61.451A] Vonnie MATHEWS DO 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 CPT-4: 21908 05/19/2016 ([id number]) OFFICE/OUTPATIENT VISIT EST Diagnosis: HYPERLIPIDEMIA NEC/NOS[ICD9: 272.4] Diagnosis: CAD[ICD9: 414.00] Diagnosis: TACHYCARDIA[ICD9: 785.0] Diagnosis: HYPERTENSION[ICD9: 401.9] Diagnosis: Routine medical exam[ICD9: V70.0] Vonnie LAIQUEMARSHA MATHEWS [facility] CPT-4: 30407 04/05/2015 ([id number]) OFFICE/OUTPATIENT VISIT EST Diagnosis: HYPERTENSION[ICD9: 401.9] Diagnosis: HYPERLIPIDEMIA NEC/NOS[ICD9: 272.4] Diagnosis: CAD[ICD9: 414.00] Diagnosis: LUMB/LUMBOSAC DISC DEGEN[ICD9: 722.52] Vonnie MATHEWS [facility] CPT-4: 21755 04/01/2015 ([id number]) OFFICE/OUTPATIENT VISIT EST Diagnosis: CHEST PAIN NOS[ICD9: 786.50] Diagnosis: PAIN IN THORACIC SPINE[ICD9: 724.1] Diagnosis: HYPERTENSION[ICD9: 401.9] Diagnosis: GERD[ICD9: 530.81] Vonnie MATHEWS DO [facility] CPT-4: 54233 01/13/2014 ([id number]) OFFICE/OUTPATIENT VISIT EST Diagnosis: CAD[ICD9: 414.00] Diagnosis: HYPERLIPIDEMIA NEC/NOS[ICD9: 272.4] Vonnie Romuloiron ANNA Denia MATHEWS [facility] CPT-4: 36020 07/19/2012 ([id number]) OFFICE/OUTPATIENT VISIT EST Diagnosis: CAD[ICD9: 414.00] Diagnosis: INSOMNIA NOS[ICD9: 780.52] Vonnie Romuloiron COLMENARES Denia DYEER [facility] CPT-4: 44582 04/03/2012 ([id number]) OFFICE/OUTPATIENT VISIT EST Diagnosis: CHEST PAIN NOS[ICD9: 786.50] Diagnosis: CAD[ICD9: 414.00] Vonnie ASCENCIOLINE Denia MATHEWS [facility] CPT-4: 92152 03/22/2012 ([id number]) OFFICE/OUTPATIENT VISIT EST Diagnosis: PROSTATITIS[ICD9: 601.9] Diagnosis: TREMOR NEC[ICD9: 333.1] Vonnie Loza [employer] CPT-4: 20076 12/20/2011 OFFICE/OUTPATIENT VISIT EST Diagnosis: TREMOR NEC[ICD9: 333.1] Diagnosis: TACHYCARDIA[ICD9: 785.0] Diagnosis: HYPERTENSION[ICD9: 401.9] Vonnie Loza [employer] CPT-4: 54383 10/24/2011 OFFICE/OUTPATIENT VISIT EST Vonnie SCHULTZ [employer] CPT- 4: 07732 03/13/2011 ([id number]) OFFICE/OUTPATIENT VISIT EST Vonnie GASPAR SK[employer] CPT-4: 93607 02/20/2011 ([id number]) OFFICE/OUTPATIENT VISIT, EST Vonnie NELSON S. [facility] CPT-4: 46996 02/23/2010 ([id number]) OFFICE/OUTPATIENT VISIT, EST Vonnie NELSON S. [facility]END[facility] DO [facility] [employer] CPT-4: 73898 01/12/2010 Plan of Care Planned Activity Notes Codes Status Date Appointment: [phone] [facility] [facility] 09/30/2019 Appointment: Verna Ramirez 504 [employer] [id number] RESCHEDULED 09/25/2019 Visit Diagnosis Plan: Encounter for therapeutic drug l evel monitoring Discussion: UDS and contract completed today. ICD-9 : V58.83 ICD-10 : Z51.81 09/24/2019 Visit Diagnosis Plan: Essential tremor Discussion: sta ble on clonazepam. educated patient about purchasing a large, heavy pen that will allow him to improve his writing. instructed him that pens can be purchased on [employer]. ICD-9 : 333.1 ICD-10 : G25.0 09/24/2019 Appointment: Verna Ramirez 504 [employer] [id number] MEDICATION REVIEW 09/24/2019 Visit Diagnosis Plan: Hemorrhage of anus and rectum Di scussion: Update colonoscopy ICD-9 : 569.3 ICD-10 : K62.5 05/26/2019 Visit Diagnosis Plan: Noninfective gastroenteritis and colitis, unspecified Discussion: Flagyl Hamlin diet Update colonoscopy ICD-9 : 558.9 ICD-10 : K52.9 05/26/2019 Appointment: Vonnie Mathewstel: [address] [place], [place] [phone] [place] record request faxed 05/23; LM with medical records 05/26/19 Hospital Follow Up 05/26/2019 Care Plan: Referral Order SNOMED-CT : 30 [id number] Pending 05/26/2019 Visit Diagnosis Plan: Other intervertebral disc degene ration, lumbar region Discussion: Increase lyrica to 150mg po q HS Continue stretches from PT [facility] Fwup after that appointment ICD-9 : 722.52 ICD-10 : M51.36 03/17/2019 Appointment: Vonnie Mathews WPtel: [address] [place], [place] [phone] [place] FOLLOW UP 03/17/2019 Visit Diagnosis Plan: [...] HS once CT scan results obtained Hold [facility] Follow Up: 3 weeks ICD-9 : 722.52 ICD-10 : M51.36 02/18/2019 Appointment: Vonnie Mathewstel: [address] [place], [place] [phone] [place] FOLLOW UP 02/18/2019 Appointment: Vonnie Mathewstel: [address] [place], [place] [phone] [place] CANCELED 02/18/2019 Visit Diagnosis Plan: Other [...] : J30.89 01/13/2019 Appointment: Akilah Lopez [address] Due for annual wellness ACUTE ILLNESS 01/14/20 Appointment: Vonnie Mathews WPtel: [facility] [place] [address] [place] LAB 09/04/2018 Visit Diagnosis Plan: Otorrhea, [...] : H61.21 09/03/2018 Appointment: Verna Ramirez [address] ACUTE ILLNESS 09/03/2018 Visit Diagnosis Plan: [...] G25.0 08/26/2018 Appointment: Vonnie Mathews WPtel: [phone] [place] [phone] [place] FOLLOW UP 08/26/2018 Visit Diagnosis Plan: [...] ICD-10 : R10.2 05/15/2018 Appointment: Verna Ramirez [facility] [employer] [id number] ACUTE ILL[facility] 05/15/2018 Patient Education: Patient Medication Summary Completed 05/15/2018 Care Plan: US EXAM PELVIC COMPLETE scrotal LOINC : 12720-3 Pending 05/15/2018 Visit Diagnosis Plan: Other intervertebral [...] ICD-10 : J01.90 04/25/2018 Appointment: Verna Ramirez [address] [place], [place] [id number] MEDICATION REVIEW 04/25/2018 Patient Education: Patient Medication Summary Completed 04/25/2018 Appointment: Vonnie Mathews WPtel: [address] [place], [place] [phone] 11/16/2017 Patient Education: Patient Medication Summary Completed [...] : L50.1 11/06/2017 Appointment: Vonnie Mathews WPtel: [address] [place] [address] FOLLOW UP 11/06/2017 Patient Education: Patient Medication [...] : R63.4 09/03/2017 Appointment: Vonnie Mathews WPtel: [address] [place], [place] [phone] FOLLOW UP 09/03/2017 Patient Education: Patient Medication Summary Completed 09/03/2017 Visit Diagnosis Plan: Mixed hyperlipidemia Discussion: Lab discussed ICD-9 : 272.4 ICD-10 : E78.2 08/21/2017 Visit Diagnosis Plan: Essential tremor Discussion: Sta ble on Primidone ICD-9 : 333.1 ICD-10 : G25.0 08/21/2017 Visit Diagnosis Plan: Atherosclerotic he art disease of [place] coronary artery without angina pectoris Discussion: Sees Cardiology in 2 days To ER if CP returns before ICD-9 : 414.00 ICD-10 : I25.10 08/21/2017 Visit Diagnosis Plan: Abnormal weight loss Discussion: Start daily protein shake or smoothie ICD-9 : 783.21 ICD-10 : R63.4 08/21/2017 Visit Diagnosis Plan: Essential (primary) hypertension Discussion: Stable ICD-9 : 401.9 ICD-10 : I10 08/21/2017 Appointment: Vonnie Mathews WPtel: [phone] [place], [place] [phone] [place] FOLLOW UP 08/21/2017 Patient Education: Patient Medication Summary Completed 08/21/2017 Appointment: Vonnie Mathews WPtel: [address] [place], [place] [phone] [place] LAB 07/31/2017 Patient Education: Patient Medication Summary Completed 07/31/2017 Appointment: Vonnie Mathews WPtel: [phone] [place], [place] [phone] [place] INJECTION 07/04/2017 Patient Education: Patient Medication Summary Completed 07/04/2017 Appointment: Vonnie Mathews WPtel: [phone] [place], [place] [phone] [place] LAB 02/26/2017 Patient Education: Patient Medication Summary Completed 02/26/2017 Visit Diagnosis Plan: Essential tremor Discussion: Con tinue clonazepam at 1mg q AM and primidone 50mg q HS Follow Up: 3 months ICD-9 : 333.1 ICD-10 : G25.0 02/13/2017 Appointment: Vonnie Mathews WPtel: [address] [place], [place] [phone] [place] 02/08 confirmed~sl FOLLOW UP 02/13/2017 Patient Education: Patient Medication Summary Completed 02/13/2017 Appointment: Vonnie Mathews WPtel: [address] [place], [place] [phone] [place] RESCHEDULED 01/23/2017 Visit Diagnosis Plan: Other intervertebral disc degene ration, lumbar region Discussion: DC oxycodone Tramadol 50mg 1-2 po TID prn pain Follow Up: 2 months ICD-9 : 722.52 ICD-10 : M51.36 11/23/2016 Visit Diagnosis Plan: Essential tremor Discussion: Inc rease clonazepam to 1mg po BID Discussed sinemet ICD-9 : 333.1 ICD-10 : G25.0 11/23/2016 Appointment: Vonnie Mathews WPtel: [facility] 11/22 confirmed~sl MEDICATION REVIEW 11/23/2016 Patient Education: Patient Medication Summary Completed 11/23/2016 Patient Education: [facility] - [employer] - Clonazepam - 18-64 - Dynamic Portal ID Completed 11/23/2016 Appointment: Vonnie Mathews WPtel: [address] [place], [place] [phone] INJECTION 06/28/2016 Patient Education: Patient Medication Summary Completed 06/28/2016 Referral: Fernando Day WPtel: #1 [facility] [id number] per Maribeth, the patient is sched [...] worsening 05/23/2016 Appointment: Vonnie Mathews WPtel: [phone] [facility] ER Follow UP 05/23/2016 Patient Education: Patient Medication Summary Completed 05/23/2016 Appointment: Vonnie Mathews WPtel: [phone] [facility] [place] LAB 05/19/2016 Patient Education: Patient Medication Summary Completed 05/19/2016 Visit Plan: Change coreg to 3.125mg BID Trial of low dose clonazepam 0.5mg BID for tremors Fwup with Dr. Ramsey as scheduled Return for fasting lab--CBC, CMP, TSH, free T4, Lipids, PSA, B12 Proceed with Colonoscopy 05/10/2016 Appointment: Vonnie Mathews WPtel: [address] [place], [place] [phone] 05/09 confirmed~sl Annual Well Visit 05/10/2016 Patient Education: Patient Medication Summary Completed 05/10/2016 Care Plan: Referral Order SNOMED-CT : 30 [id number] Pending 05/10/2016 Appointment: Vonnie Mathews WPtel: [address] [place], [place] [phone] [place] Rescheduled for 05/10/16 at 2PM~lb RESCHEDULED 04/26/2016 Referral: [facility] Referral Initiated 04/29/2015 Appointment: Vonnie Mathews WPtel: [address] [place], [place] [phone] LAB 04/05/2015 Patient Education: Patient Medication Summary Completed 04/05/2015 Visit Plan: Return in AM for fasting lab --CMP, lipids, CBC, TSH, PSA Change hydrocodone to oxycodone 7.5/325mg 1-2 po TID Schedule with cardiology Needs colonoscopy once cardiology evaluation complete Will need to restart chol meds after lab Recheck 1mo on pain meds 04/01/2015 Appointment: Vonnie Mathews WPtel: [address] [place], [place] [phone] 03/31 confirmed -mf PHYSICAL 04/01/2015 Patient Education: Patient Medication Summary Completed 04/01/2015 Appointment: Vonnie Mathews WPtel: [address] [place], [place] [phone] Annual Well Visit 09/23/2014 Visit Plan: Continue protonix Pt has fwu p with Card next month Rec chiropracter or PT for ribs/thoracics being out and could be contributing to chest pain 01/13/2014 Appointment: Vonnie Mathews WPtel: [phone] [facility] [place] FOLLOW UP 01/13/2014 Patient Education: Patient Medication Summary Completed 01/13/2014 Appointment: Ariella Mcnally WPtel: [address] [place], [place] [phone] [place] FOLLOW UP 12/12/2013 Appointment: Malika Cárdenas WPtel: [address] [place] [address] [place] PHYSICAL 12/12/2013 Appointment: Vonnie Mathews WPtel: [address] [place] [address] ACUTE ILLNESS 02/20/2013 Appointment: Vonnie Mathews WPtel: [address] [place] [address] [place] LAB 07/19/2012 Patient Education: Patient Medication Summary Completed 07/19/2012 Appointment: Vonnie Mathews WPtel: [phone] [place], [place] [phone] [place] FOLLOW UP 04/03/2012 Patient Education: Patient Medication Summary Completed 04/03/2012 Appointment: Vonnie Mathews WPtel: [phone] [place], [place] [address] ACUTE ILLNESS 03/22/2012 Patient Education: Patient Medication Summary Completed 03/22/2012 Appointment: Vonnie Mathews WPtel: [address] [place], [place] [address] US FOLLOW UP 12/26/2011 Visit Plan: Add Cipro Continue current m eds 12/20/2011 Appointment: Vonnie Mathews WPtel: [address] [place], [place] [phone] ACUTE ILLNESS 12/20/2011 Patient Education: Patient Medication Summary Completed 12/20/2011 Visit Plan: Change neurontin to Cymbalta 30mg for 1wk then 60mg QD Add Propranolol for tremor 10/24/2011 Appointment: Vonnie Mathewstel: [address] [place] [address] ACUTE ILLNESS 10/24/2011 Appointment: Vonnie Mathews WPtel: [address] [place] [address] ACUTE ILLNESS 10/24/2011 Patient Education: Patient Medication Summary Completed 10/24/2011 Visit Plan: Continue current meds and fw up with Card as scheduled 03/13/2011 Appointment: Vonnie Mathews WPtel: [address] [place] [address] FOLLOW UP 03/13/2011 Patient Education: Patient Medication Summary Completed 03/13/2011 Visit Plan: Will obtain all records and lab from [place] Discussed will likely need heart cath which pt states that Card did talk to him about in the hospital 02/20/2011 Appointment: Vonnie Mathews WPtel: [address] [place] [address] ACUTE ILLNESS 02/20/2011 Patient Education: Patient Medication Summary Completed 02/20/2011 Visit Plan: Cont Pepcid and Prilosec See Card for cardiac cath. 02/23/2010 Appointment: Vonnie Mathews WPtel: [address] [place], [place] [phone] [place] FOLLOW UP 02/23/2010 Patient Education: Patient Medication Summary Completed 02/23/2010 Visit Plan: Increase Pamelor to 75mg qhs Increase Hydrocodone to 10/325mg 1-2 po q6 prn 01/12/2010 Appointment: Vonnie Mathews WPtel: [address] [place] [address] ACUTE ILLNESS 01/12/2010 Patient Education: Patient Medication Summary Completed 01/12/2010 Referral: Iván Pardo WPtel: [facility] [address] [facility], [facility] 1 [id number] [place] Referral Initiated Referral: Fernando Day WPtel: #1 [facility] Girish [id number] [place] Referral Completed Referral: Fernando DayKim WPtel: #1 [facility] Girish [id number] [place] Referral Appointment Requested Instructions Comment . [...]
--- OUTSIDE RECORDS SUMMARY | 2020-02-10 08:20 | XMS REPORT | CCD ---
Author Author Nash Mathews D.O. Organization [facility]ONN[facility]HE[facility] DO [facility] Address [address] [place] [address] Phone Care Team Providers Care Guest Relations Representative Name Role Phone Vonnie Mathews D.O., PP Unavailable CCM Unavailable Summary Purpose Interface Exchange Insurance Providers Payer name Policy type / Coverage type Covered alliance party ID Effective Begin Date Effective End Date [employer] MEDICARE Medicare Part B [id number] 2019 Unknown Family History Family History data not found Social History Social History Element Codes Description Effective Dates Marital status Unknown 10/24/[address]: 112962112 Nonsmoker 03/29/2011 Allergies, Adverse Reactions, Alerts Substance [...] R63.4 08/21/2017 Active 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: [...] Fill Instructions pravastatin 20 mg tablet RxNorm: 501000 1 Tablet(s) Oral QD 020 04/06/2020 Active Lyrica 75 mg capsule RxNorm: 576631 1 Capsule(s) Oral every nig ht at bedtime 10/09/2019 01/07/2020 Active clonazepam 1 mg tablet RxNorm: 524329 TAKE 1 TABLET BY MOUTH EV SUSAN AM 09/23/2019 10/22/2019 Active clonazepam 1 mg tablet RxNorm: 643554 TAKE 1 TABLET BY MOUTH EV SUSAN AM 08/21/2019 09/22/2019 Inactive Singulair 10 mg tablet RxNorm: 929996 TABLET(S) 1 TABLET(S) PO QD 1 10/11/2019 Active Flagyl 500 mg tablet RxNorm: 036025 1 Tablet(s) PO TID 05/26/2019 Inactive clonazepam 1 mg tablet RxNorm: 731728 TAKE 1 TABLET BY MOUTH EV SUSAN MORNING 05/23/2019 06/21/2019 Inactive pravastatin 20 mg tablet RxNorm: 658384 1 Tablet(s) PO QD 04/14/2019 10/09/2019 Inactive Needs updated fasting labs Singulair 10 mg tablet RxNorm: 514862 Tablet(s) 1 TABLET(S) PO QD 0 04/14/2019 07/12/2019 Inactive clonazepam 1 mg tablet RxNorm: 022480 1 Tablet(s) PO QAM 02/21/2019 0 05/23/2019 Inactive Bevespi Aerosphere 9 mcg-4.8 mcg HFA aerosol inhaler RxNorm: 5077860 2 Puff(s) INH BID 02/19/2019 No Stop Date Active ProAir HFA 90 mcg/actuation aerosol inhaler RxNorm: 774685 2 Puff(s) INH Q4H as needed 02/19/2019 09/24/2019 Inactive metoprolol tartrate 25 mg tablet RxNorm: 456677 1/2 Tablet(s) PO BI D 02/18/2019 05/18/2019 Inactive pravastatin 20 mg tablet RxNorm: 477125 1 Tablet(s) PO QD Needs updated fasting labs 01/13/2019 04/14/2019 Inactive Needs updated fa sting labs Singulair 10 mg tablet RxNorm: 143550 Tablet(s) 1 TABLET(S) PO QD 0 01/13/2019 04/12/2019 Inactive Plavix 75 mg tablet RxNorm: 661002 Tablet(s) 1 TABLET(S) PO QD 04/201906/20/2019 Inactive [SAVINGS FOR NON-COVERED SHANDA -- BIN:046080, PCN: ASPROD1, Group: XXXXX, ID# [id number], Questions: . THIS IS NOT INSURANCE.] Singulair 10 mg tablet RxNorm: 228784 1 TABLET(S) PO QD 10/29/2018 Inactive primidone 50 mg tablet RxNorm: 683220 2 TABLET(S) PO BI D TAKE 2 TABLETS BY MOUTH EVERY NIGHT AT BEDTIME 10/07/2018 01/12/2019 Inactive Patient requests 90 days supply pravastatin 20 mg tablet RxNorm: 334024 1 TABLET(S) PO QD 09/23/2018 01/12/2019 Inactive clonazepam 1 mg tablet RxNorm: 252139 1 Tablet(s) PO QAM 09/19/2018 0 12/17/2018 Inactive primidone 50 mg tablet RxNorm: 325222 TABLET(S) TAKE 2 TABLETS BY MOUTH EVERY NIGHT AT BEDTIME 09/18/2018 01/12/2019 Inactive ciprofloxacin 0.2 % ear drops in a dropperette RxNorm: 03855 6 2 Drop(s) left otic (ear) BID 09/03/2018 09/09/2018 Inactive primidone 50 mg tablet RxNorm: 213889 2 Tablet(s) PO BI D TAKE 2 TABLETS BY MOUTH EVERY NIGHT AT BEDTIME 08/26/2018 10/06/2018 Inactive Ambien 5 mg tablet RxNorm: 401812 TAKE 1 TABLET BY MOUTH EVERY NIGHT AT BEDTIME 08/05/2018 09/03/2018 Inactive Singulair 10 mg tablet RxNorm: 904025 1 TABLET(S) PO QD 07/23/2018 Inactive clonazepam 1 mg tablet RxNorm: 313175 TAKE 1 TABLET BY MOUTH EV SUSAN MORNING 07/23/2018 08/21/2018 Inactive Plavix 75 mg tablet RxNorm: 909824 1 TABLET(S) PO QD 07/04/201812/22 Inactive [SAVINGS FOR NON-COVERED DRUGS -- BIN:00 8945, PCN: ASPROD1, Group: XXXXX, ID# [id number], Questions: . THIS IS NOT INSURANCE.] clonazepam 1 mg tablet RxNorm: 101228 TAKE 1 TABLET BY MOUTH EV SUSAN MORNING 06/25/2018 07/23/2018 Inactive clonazepam 1 mg tablet RxNorm: 822602 TAKE 1 TABLET BY MOUTH EV SUSAN MORNING 05/23/2018 06/21/2018 Inactive primidone 50 mg tablet RxNorm: 408613 Tablet(s) TAKE 2 TABLETS BY MOUTH EVERY NIGHT AT BEDTIME 05/16/2018 08/25/2018 Inactive oxycodone-acetaminophen 7.5 mg-325 mg tablet RxNorm: 3055408 1-2 Tablet(s) PO TID as needed 04/25/2018 05/24/2018 Inactive Singulair 10 mg tablet RxNorm: 214880 1 Tablet(s) PO QD 04/25/2018 Inactive Medrol (Jose) 4 mg tablets in a dose pack RxNorm: 791162 Tablet(s) PO take as directed 04/25/2018 09/02/2018 Inactive clonazepam 1 mg tablet RxNorm: 416874 TAKE 1 TABLET BY MOUTH EV SUSAN MORNING 04/24/2018 05/22/2018 Inactive Plavix 75 mg tablet RxNorm: 968716 1 TABLET(S) PO QD 04/04/201807/02 Inactive [SAVINGS FOR NON-COVERED DRUGS -- BIN:00 2743, PCN: ASPROD1, Group: XXXXX, ID# [id number], Questions: . THIS IS NOT INSURANCE.] pravastatin 20 mg tablet RxNorm: 439033 1 Tablet(s) PO QD 03/21/2018 09/16/2018 Inactive ProAir HFA 90 mcg/actuation aerosol inhaler RxNorm: 758042 2 Puff(s) INH Q4H as needed 03/18/2018 03/17/2018 Inactive tamsulosin 0.4 mg capsule RxNorm: 528291 1 CAPSULE(S) PO QD 018 01/12/2019 Inactive clonazepam 1 mg tablet RxNorm: 714086 1 Tablet(s) PO QAM 02/25/2018 0 04/25/2018 Inactive tamsulosin 0.4 mg capsule RxNorm: 046442 1 Capsule(s) PO QD 018 03/13/2018 Inactive tamsulosin 0.4 mg capsule RxNorm: 871761 1 Capsule(s) PO QD 018 02/03/2018 Inactive tamsulosin 0.4 mg capsule RxNorm: 720811 1 Capsule(s) PO QD 018 02/12/2018 Inactive Ambien 5 mg tablet RxNorm: 385539 Tablet(s) TAKE 1 TAB LET BY MOUTH EVERY NIGHT AT BEDTIME 01/24/2018 08/05/2018 Inactive primidone 50 mg tablet RxNorm: 645683 Tablet(s) TAKE 2 TABLETS BY MOUTH EVERY NIGHT AT BEDTIME 01/18/2018 05/16/2018 Inactive cyclobenzaprine 10 mg tablet RxNorm: 302361 1 Tablet(s) PO TID as needed for muscle spasm 01/11/2018 02/09/2018 Inactive [SAVINGS FOR NON -COVERED DRUGS -- BIN:582324, PCN: ASPROD1, Group: XXXXX, ID# [id number], Questions: . THIS IS NOT INSURANCE.] clonazepam 1 mg tablet RxNorm: 056680 1 Tablet(s) PO QAM 12/24/2017 0 02/21/2018 Inactive prednisone 20 mg tablet RxNorm: 374902 1 Tablet(s) PO QD 11/06/2017 0 11/10/2017 Inactive EpiPen 2-Jose 0.3 mg/0.3 mL injection, auto-injector RxNorm: 631605 1 Unit Dose IM as needed 11/06/2017 09/24/2019 Inactive ProAir HFA 90 mcg/actuation aerosol inhaler RxNorm: 342833 2 Puff(s) INH Q4H as needed 10/30/2017 03/17/2018 Inactive primidone 50 mg tablet RxNorm: 046895 TAKE 2 TABLETS BY MOUTH EVERY NIGHT AT BEDTIME 10/15/2017 01/17/2018 Inactive Plavix 75 mg tablet RxNorm: 303604 1 Tablet(s) PO QD 10/01/201703/29 Inactive [SAVINGS FOR NON-COVERED DRUGS -- BIN:00 3585, PCN: ASPROD1, Group: XXXXX, ID# [id number], Questions: . THIS IS NOT INSURANCE.] clonazepam 1 mg tablet RxNorm: 324675 1 Tablet(s) PO QAM 09/19/2017 0 12/16/2017 Inactive primidone 50 mg tablet RxNorm: 689567 2 Tablet(s) PO QHS 08/29/2017 0 01/18/2018 Inactive oxycodone-acetaminophen 7.5 mg-325 mg tablet RxNorm: 9746609 1-2 Tablet(s) PO TID as needed 08/22/2017 09/19/2017 Inactive pravastatin 20 mg tablet RxNorm: 600283 1 Tablet(s) PO QD 08/21/2017 03/21/2018 Inactive carvedilol 3.125 mg tablet RxNorm: 548085 1 Tablet(s) P O BID to replace 6.25mg dose 08/21/2017 09/02/2017 Inactive primidone 50 mg tablet RxNorm: 992600 TAKE 2 TABLETS BY MOUTH EVERY NIGHT AT BEDTIME 06/18/2017 08/28/2017 Inactive clonazepam 1 mg tablet RxNorm: 272126 1 Tablet(s) PO QAM 06/04/2017 1 11/02/2016 Inactive Plavix 75 mg tablet RxNorm: 924315 1 Tablet(s) PO QD 04/10/201710/01 Inactive [SAVINGS FOR NON-COVERED DRUGS -- BIN:00 9656, PCN: ASPROD1, Group: XXXXX, ID# [id number], Questions: . THIS IS NOT INSURANCE.] pravastatin 20 mg tablet RxNorm: 241728 1 Tablet(s) PO QD 02/26/2017 08/24/2017 Inactive carvedilol 3.125 mg tablet RxNorm: 043347 1 Tablet(s) P O BID to replace 6.25mg dose 02/26/2017 08/21/2017 Inactive Ultram 50 mg tablet RxNorm: 268304 TAKE 1 TO 2 TABLETS BY MOUTH THREE TIMES DAILY NEEDED FOR PAIN 02/26/2017 03/07/2017 Inactive pravastatin 20 mg tablet RxNorm: 032986 1 Tablet(s) PO QD 02/26/2017 08/21/2017 Inactive carvedilol 3.125 mg tablet RxNorm: 762204 1 Tablet(s) P O BID to replace 6.25mg dose 02/26/2017 08/20/2017 Inactive clonazepam 0.5 mg tablet RxNorm: 842468 1 Tablet(s) PO QAM 02/14/20 17 02/13/2017 Inactive primidone 50 mg tablet RxNorm: 376687 1 Tablet(s) PO QHS 02/13/2017 0 05/01/2017 Inactive clonazepam 1 mg tablet RxNorm: 174022 1 Tablet(s) PO QAM 02/13/2017 0 05/13/2017 Inactive primidone 50 mg tablet RxNorm: 521764 1/2 Tablet(s) PO QD for 7 days then increase to 1 tablet at bedtime 01/09/2017 02/12/2017 Inactive pravastatin 20 mg tablet RxNorm: 684644 Tablet(s) 1 TABLET(S) PO QD 11/29/2016 02/25/2017 Inactive clonazepam 1 mg tablet RxNorm: 821900 1 Tablet(s) PO BID replac es 0.5mg dose 11/23/2016 01/08/2017 Inactive pravastatin 20 mg tablet RxNorm: 369115 1 TABLET(S) PO QD 11/17/2016 11/28/2016 Inactive Ambien 5 mg tablet RxNorm: 362814 TAKE 1 TABLET BY MOUTH EVERY NIGHT AT BEDTIME 11/17/2016 12/14/2016 Inactive clonazepam 0.5 mg tablet RxNorm: 299142 TAKE 1 TABLET BY MOUTH TWICE DAILY 11/17/2016 11/22/2016 Inactive Plavix 75 mg tablet RxNorm: 564200 1 Tablet(s) PO QD 11/06/201604/09 Inactive [SAVINGS FOR NON-COVERED DRUGS -- BIN:00 3585, PCN: ASPROD1, Group: XXXXX, ID# [id number], Questions: . THIS IS NOT INSURANCE.] Plavix 75 mg tablet RxNorm: 622781 1 Tablet(s) PO QD 08/28/201611/05 Inactive [SAVINGS FOR NON-COVERED DRUGS -- BIN:00 3585, PCN: ASPROD1, Group: XXXXX, ID# [id number], Questions: . THIS IS NOT INSURANCE.] Lidoderm 5 % topical patch RxNorm: 8154234 Application T OP 2 patches for 12hrs then off for 12hrs 08/28/2016 08/27/2016 Inactive clonazepam 0.5 mg tablet RxNorm: 257132 1 Tablet(s) PO BID 08/07/20 16 11/22/2016 Inactive pravastatin 20 mg tablet RxNorm: 121320 1 Tablet(s) PO QD 08/07/2016 11/04/2016 Inactive cyclobenzaprine 10 mg tablet RxNorm: 003780 1 Tablet(s) PO TID as needed for muscle spasm 08/07/2016 09/05/2016 Inactive [SAVINGS FOR NON -COVERED DRUGS -- BIN:173578, PCN: ASPROD1, Group: XXXXX, ID# [id number], Questions: . THIS IS NOT INSURANCE.] Plavix 75 mg tablet RxNorm: 254753 1 Tablet(s) PO QD 08/07/201608/27 Inactive [SAVINGS FOR NON-COVERED DRUGS -- BIN:00 3585, PCN: ASPROD1, Group: XXXXX, ID# [id number], Questions: . THIS IS NOT INSURANCE.] carvedilol 3.125 mg tablet RxNorm: 164743 1 Tablet(s) P O BID to replace 6.25mg dose 08/07/2016 02/02/2017 Inactive clonazepam 0.5 mg tablet RxNorm: 669024 1 Tablet(s) PO BID 07/04/20 16 08/07/2016 Inactive Plavix 75 mg tablet RxNorm: 553980 1 TABLET(S) PO QD 06/20/201608/06 Inactive [SAVINGS FOR NON-COVERED DRUGS -- BIN: 3585, PCN: ASPROD1, Group: XXXXX, ID# [id number], Questions: . THIS IS NOT INSURANCE.] clonazepam 0.5 mg tablet RxNorm: 422372 1 Tablet(s) PO BID 06/09/20 16 07/03/2016 Inactive pravastatin 20 mg tablet RxNorm: 860905 1 Tablet(s) PO QD 05/23/2016 08/06/2016 Inactive pravastatin 20 mg tablet RxNorm: 189236 1 Tablet(s) PO QD 05/23/2016 05/22/2016 Inactive carvedilol 3.125 mg tablet RxNorm: 321060 1 Tablet(s) P O BID to replace 6.25mg dose 05/10/2016 08/06/2016 Inactive carvedilol 3.125 mg tablet RxNorm: 856608 1 Tablet(s) P O BID to replace 6.25mg dose 05/10/2016 05/09/2016 Inactive clonazepam 0.5 mg tablet RxNorm: 876136 1 Tablet(s) PO BID 05/10/20 16 06/08/2016 Inactive carvedilol 6.25 mg tablet RxNorm: 533757 1 Tablet(s) PO QD 05/10/20 16 05/10/2016 Inactive simvastatin 40 mg tablet RxNorm: 476764 1 TABLET(S) PO QD 04/10/2016 05/09/2016 Inactive Medrol (Jose) 4 mg tablets in a dose pack RxNorm: 104783 Tablet(s) PO As Directed 01/13/2016 05/09/2016 Inactive cyclobenzaprine 10 mg tablet RxNorm: 651189 1 TABLET(S) PO TID NEEDED FOR SPASM 01/11/2016 03/10/2016 Inactive [SAVINGS FOR NON -COVERED DRUGS -- BIN:746279, PCN: ASPROD1, Group: XXXXX, ID# [id number], Questions: . THIS IS NOT INSURANCE.] Plavix 75 mg tablet RxNorm: 824938 1 Tablet(s) PO QD 12/30/201506/19 Inactive [SAVINGS FOR NON-COVERED DRUGS -- BIN: 3585, PCN: ASPROD1, Group: XXXXX, ID# [id number], Questions: . THIS IS NOT INSURANCE.] Ambien 5 mg tablet RxNorm: 619288 TAKE 1 TABLET BY MOUTH EVERY DAY AT BEDTIME 11/15/2015 11/17/2016 Inactive simvastatin 40 mg tablet RxNorm: 093217 1 Tablet(s) PO QD 10/11/2015 01/12/2019 Inactive simvastatin 40 mg tablet RxNorm: 563557 1 Tablet(s) PO QD 10/08/2015 10/10/2015 Inactive Ambien 5 mg tablet RxNorm: 964739 TAKE 1 TABLET BY MOUTH EVERY NIGHT AT BEDTIME 07/27/2015 11/15/2015 Inactive Plavix 75 mg tablet RxNorm: 993324 1 Tablet(s) PO QD 06/28/201512/29 Inactive [SAVINGS FOR NON-COVERED DRUGS -- BIN:00 3585, PCN: ASPROD1, Group: XXXXX, ID# [id number], Questions: . THIS IS NOT INSURANCE.] Coreg 6.25 mg tablet RxNorm: 483204 1 TABLET(S) PO BID 04/19/2015 Inactive [SAVINGS FOR NON-COVERED DRUGS -- BIN:00 3585, PCN: ASPROD1, Group: XXXXX, ID# [id number], Questions: . THIS IS NOT INSURANCE.] simvastatin 40 mg tablet RxNorm: 611711 1 Tablet(s) PO QD 04/05/2015 04/04/2015 Inactive simvastatin 40 mg tablet RxNorm: 374107 1 Tablet(s) PO QD 04/05/2015 10/11/2015 Inactive Plavix 75 mg tablet RxNorm: 811069 1 TABLET(S) PO QD 03/22/201504/20 Inactive [SAVINGS FOR NON-COVERED DRUGS -- BIN:00 3585, PCN: ASPROD1, Group: XXXXX, ID# [id number], Questions: . THIS IS NOT INSURANCE.] Plavix 75 mg tablet RxNorm: 746422 1 Tablet(s) PO QD 03/22/201506/28 Inactive [SAVINGS FOR NON-COVERED DRUGS -- BIN:00 3585, PCN: ASPROD1, Group: XXXXX, ID# [id number], Questions: . THIS IS NOT INSURANCE.] Ambien 5 mg tablet RxNorm: 605123 1 Tablet(s) PO QHS 12/17/201407/28 Inactive [SAVINGS FOR NON-COVERED DRUGS -- BIN:00 3585, PCN: ASPROD1, Group: XXXXX, ID# [id number], Questions: . THIS IS NOT INSURANCE.] Coreg 6.25 mg tablet RxNorm: 444894 1 Tablet(s) PO BID 12/17/2014 Inactive [SAVINGS FOR NON-COVERED DRUGS -- BIN:00 3585, PCN: ASPROD1, Group: XXXXX, ID# [id number], Questions: . THIS IS NOT INSURANCE.] Plavix 75 mg tablet RxNorm: 738892 1 Tablet(s) PO QD 12/17/201403/16 Inactive [SAVINGS FOR NON-COVERED DRUGS -- BIN:00 3585, PCN: ASPROD1, Group: XXXXX, ID# [id number], Questions: . THIS IS NOT INSURANCE.] cyclobenzaprine 10 mg tablet RxNorm: 944519 1 Tablet(s) PO TID as needed for spasm 12/17/2014 03/16/2015 Inactive [SAVINGS FOR NON -COVERED DRUGS -- BIN:842002, PCN: ASPROD1, Group: XXXXX, ID# [id number], Questions: . THIS IS NOT INSURANCE.] Coreg 6.25 mg tablet RxNorm: 688154 1 Tablet(s) PO BID 10/21/201409/2014 Inactive [SAVINGS FOR NON-COVERED DRUGS -- BIN:00 3585, PCN: ASPROD1, Group: XXXXX, ID# [id number], Questions: . THIS IS NOT INSURANCE.] Plavix 75 mg tablet RxNorm: 875659 1 Tablet(s) PO QD 10/21/201412/16 Inactive [SAVINGS FOR NON-COVERED DRUGS -- BIN:00 3585, PCN: ASPROD1, Group: XXXXX, ID# [id number], Questions: . THIS IS NOT INSURANCE.] Plavix 75 mg tablet RxNorm: 842573 1 Tablet(s) PO QD Ne [facility] routine check up--last seen March 2012 09/21/2014 10/20/2014 Inactive [SAVINGS FOR UNINSURED PATIENTS -- BIN:993940, PCN: ASPROD1, Group: AME08, ID# [id number], Process claim through [employer], for questions: . THIS IS NOT INSURANCE.] Ambien 5 mg tablet RxNorm: 099426 1 Tablet(s) PO QHS 09/21/201412/16 Inactive [SAVINGS FOR UNINSURED PATIENTS -- BIN:0 02888, PCN: ASPROD1, Group: AME08, ID# [id number], Process claim through [employer], for questions: . THIS IS NOT INSURANCE.] Coreg 6.25 mg tablet RxNorm: 013894 1 Tablet(s) PO BID 09/21/201411/2014 Inactive [SAVINGS FOR UNINSURED PATIENTS -- BIN:0 32353, PCN: ASPROD1, Group: AME08, ID# [id number], Process claim through [employer], for questions: . THIS IS NOT INSURANCE.] Plavix 75 mg tablet RxNorm: 590084 1 Tablet(s) PO QD Ne eds routine check up--last seen March 2012 08/04/2014 09/02/2014 Inactive [SAVINGS FOR UNINSURED PATIENTS -- BIN:141519, PCN: ASPROD1, Group: AME08, ID# [id number], Process claim through [employer], for questions: . THIS IS NOT INSURANCE.] Plavix 75 mg tablet RxNorm: 031799 1 Tablet(s) PO QD Ne eds routine check up--last seen March 2012 08/03/2014 08/03/2014 Inactive Protonix 40 mg tablet,delayed release RxNorm: 212855 1 Tablet(s ) PO QD 06/08/2014 02/17/2019 Inactive [SAVINGS FOR UNINSUR ED PATIENTS -- BIN:832013, PCN: ASPROD1, Group: AME08, ID# [id number], Process claim through [employer], for questions: . THIS IS NOT INSURANCE.] hydrocodone 10 mg-acetaminophen 325 mg tablet RxNorm: 484381 1 Tablet(s) PO BID as needed for pain 02/18/2014 03/31/2015 Inactive Coreg 6.25 mg tablet RxNorm: 589384 1 Tablet(s) PO BID 02/02/2014 Inactive Protonix 40 mg granules delayed-release packet RxNorm: 836977 1 Tablet(s) PO QD 01/13/2014 06/08/2014 Inactive Plavix 75 mg tablet RxNorm: 605265 1 Tablet(s) PO QD Ne eds routine check up--last seen March 2012 01/13/2014 08/02/2014 Inactive Plavix 75 mg tablet RxNorm: 914838 1 Tablet(s) PO QD Ne eds routine check up--last seen March 2012 12/09/2013 01/07/2014 Inactive Coreg 6.25 mg tablet RxNorm: 171075 1 Tablet(s) PO BID 12/09/2013 Inactive Cymbalta 60 mg capsule,delayed release RxNorm: 541931 1 Capsule (s) PO QD 10/31/2013 01/12/2014 Inactive Coreg 6.25 mg tablet RxNorm: 843137 1 Tablet(s) PO BID 10/31/2013 Inactive Plavix 75 mg tablet RxNorm: 721902 1 Tablet(s) PO QD Ne eds routine check up--last seen March 2012 10/31/2013 11/29/2013 Inactive Coreg 6.25 mg tablet RxNorm: 174031 1 Tablet(s) PO BID 10/31/2013 Inactive atorvastatin 40 mg tablet RxNorm: 766141 1 Tablet(s) PO QD 10/31/19 14 03/31/2015 Inactive Plavix 75 mg tablet RxNorm: 221723 1 Tablet(s) PO QD Ne eds routine check up--last seen March 2012 09/23/2013 10/30/2013 Inactive cyclobenzaprine 10 mg tablet RxNorm: 493252 1 Tablet(s) PO TID as needed for spasm 09/23/2013 No Stop Date Active cyclobenzaprine 10 mg tablet RxNorm: 822512 1 Tablet(s) PO TID as needed for spasm 07/04/2013 09/22/2013 Inactive atorvastatin 40 mg tablet RxNorm: 027335 1 Tablet(s) PO QD 06/23/20 13 10/30/2013 Inactive atorvastatin 40 mg tablet RxNorm: 570009 1 Tablet(s) PO QD 04/22/20 13 06/22/2013 Inactive Nucynta 50 mg tablet RxNorm: 287109 1-2 Tablet(s) PO Q6H as nee ded for pain 01/01/2013 01/12/2014 Inactive Ambien 5 mg tablet RxNorm: 264570 1 Tablet(s) PO QHS 10/16/201201/13 Inactive Plavix 75 mg tablet RxNorm: 103721 1 Tablet(s) PO QD 09/19/201209/13 Inactive Protonix 40 mg tablet,delayed release RxNorm: 672745 1 Tablet(s ) PO QD 09/19/2012 09/18/2012 Inactive simvastatin 40 mg tablet RxNorm: 551724 1 Tablet(s) PO QD 09/19/2012 02/23/2013 Inactive Protonix 40 mg tablet,delayed release RxNorm: 279883 1 Tablet(s ) PO QD 09/19/2012 09/13/2013 Inactive Ultram 50 mg tablet RxNorm: 692140 1-2 Tablet(s) PO QID as need ed for pain 09/19/2012 02/26/2017 Inactive propranolol 80 mg tablet RxNorm: 059234 1 Tablet(s) PO QHS 09/19/19 13 09/18/2012 Inactive Cymbalta 60 mg capsule,delayed release RxNorm: 787085 1 Capsule (s) PO QD 09/19/2012 09/18/2012 Inactive Cymbalta 60 mg capsule,delayed release RxNorm: 207341 1 Capsule (s) PO QD 09/19/2012 03/17/2013 Inactive propranolol 80 mg tablet RxNorm: 789642 1 Tablet(s) PO QHS 09/19/19 13 02/23/2013 Inactive hydrocodone-acetaminophen 10 mg-325 mg tablet RxNorm: 665175 2 1-2 Tablet(s) PO QID 07/25/2012 02/23/2013 Inactive Ambien 10 mg tablet RxNorm: 155811 1 Tablet(s) PO QHS as needed for sleep 07/10/2012 01/27/2013 Inactive propranolol 80 mg tablet RxNorm: 075178 1 Tablet(s) PO QHS 05/13/20 12 09/18/2012 Inactive hydrocodone-acetaminophen 10 mg-325 mg tablet RxNorm: 747745 2 1-2 Tablet(s) PO QID 05/02/2012 No Stop Date Active Restoril 15 mg Cap RxNorm: 776171 1-2 Capsule(s) PO QHS 05/02/2012 Inactive propranolol 80 mg tablet RxNorm: 405321 1 Tablet(s) PO QHS 05/02/20 12 05/12/2012 Inactive Chantix Starting Month Box 0.5 mg (11)-1 mg (42) Tabs in a Dose Pack RxNorm: 857656 Tablet(s) PO As Directed 04/01/2012 01/27/2013 Inactive simvastatin 40 mg tablet RxNorm: 352121 1 Tablet(s) PO QD 03/28/2012 09/18/2012 Inactive simvastatin 40 mg Tab RxNorm: 715924 1 Tablet(s) PO QD 03/22/201207/2012 Inactive Effient 10 mg Tab RxNorm: 157273 1 Tablet(s) PO QD 03/22/2012 012 Inactive Prilosec 40 mg Capsule, delayed release RxNorm: 391498 1 Capsul e(s) PO QD 03/22/2012 09/18/2012 Inactive Prilosec 40 mg Capsule, delayed release RxNorm: 987629 1 Capsul e(s) PO QD 03/19/2012 03/21/2012 Inactive Cymbalta 60 mg capsule,delayed release RxNorm: 271188 1 Capsule (s) PO QD 03/04/2012 08/30/2012 Inactive hydrocodone-acetaminophen 10 mg-325 mg Tab RxNorm: 6093830 1-2 T ablet(s) PO QID 01/23/2012 No Stop Date Active Cymbalta 60 mg Capsule, delayed release RxNorm: 939203 1 Capsul e(s) PO QD 01/23/2012 03/03/2012 Inactive Cipro 500 mg Tab RxNorm: 323801 1 Tablet(s) PO BID 12/20/2011 012 Inactive Cymbalta 60 mg Capsule, delayed release RxNorm: 742214 1 Capsul e(s) PO QD 12/13/2011 01/22/2012 Inactive nortriptyline 75 mg Cap RxNorm: 876302 1 Capsule(s) PO QHS 11/29/1904/02/2012 Inactive Cymbalta 60 mg Cap RxNorm: 056164 1 Capsule(s) PO QD 10/24/201112/11 Inactive propranolol 80 mg Tab RxNorm: 980099 1 Tablet(s) PO QHS 10/24/2011 Inactive hydrocodone-acetaminophen 10 mg-325 mg Tab RxNorm: 7527360 1-2 T ablet(s) PO QID 09/29/2011 No Stop Date Active hydrocodone-acetaminophen 10 mg-325 mg Tab RxNorm: 5273218 1-2 T ablet(s) PO QID 07/25/2011 No Stop Date Active hydrocodone-acetaminophen 10 mg-325 mg Tab RxNorm: 0262265 1-2 T ablet(s) PO QID 02/14/2011 No Stop Date Active Prilosec 40 mg Cap RxNorm: 012627 1 Capsule(s) PO 01/03/2011 01/13/20 19 Inactive nortriptyline 75 mg Cap RxNorm: 458050 1 Capsule(s) PO QHS 01/04/20 11 07/01/2011 Inactive Neurontin 600 mg Tab RxNorm: 383574 1 Tablet(s) PO QHS 12/08/201011/2011 Inactive hydrocodone-acetaminophen 5 mg-500 mg Tab RxNorm: 550442 2 Tablet(s) PO Q4-6H prn 10/20/2010 01/08/2011 Inactive Diltzac ER 240 mg Cap RxNorm: 632185 1 Capsule(s) PO QD 07/14/2010 Inactive Nortriptyline 75 mg Cap RxNorm: 935513 1 Capsule(s) PO QHS 05/09/20 10 01/12/2019 Inactive Neurontin 600 mg Tab RxNorm: 075890 1 Tablet(s) PO QD 03/17/201012/17 Inactive Nortriptyline 75 mg Cap RxNorm: 652863 1 Capsule(s) PO 01/12/2010 Inactive Nortriptyline 50 mg Cap RxNorm: 912315 1 Capsule(s) PO QHS 01/13/20 10 01/11/2010 Inactive Diltzac ER 240 mg Cap RxNorm: 884158 1 Capsule(s) PO QD 12/06/2009 Inactive aspirin 81 mg Tab RxNorm: 490541 1 Tablet(s) PO QD No Start Date Active Vitamin D3 2,000 unit tablet RxNorm: 770110 1 Tablet(s) PO QD No Star t Date Active eccfytmkk-tdknhzxfk-nzhovq complex no.233 oral RxNorm: oral No Start Date Active primidone 50 mg tablet RxNorm: 549545 2 Tablet(s) PO BID No Start Date Active Prilosec 40 mg Capsule, delayed release RxNorm: 243380 1 Capsul e(s) PO QD No Start Date 03/18/2012 Inactive Prilosec 20 mg Cap RxNorm: 506127 1 Capsule(s) PO QHS No Start Date 0 01/02/2011 Inactive primidone 50 mg tablet RxNorm: 389257 1/2 Tablet(s) PO QHS for 1week then go full tab if needed No Start Date 05/01/2017 Inactive ProAir HFA 90 mcg/actuation aerosol inhaler RxNorm: 859636 2 Puff(s) INH Q4H as needed No Start Date 10/29/2017 Inactive clonazepam 0.5 mg tablet RxNorm: 405033 1/2 Tablet(s) PO BID No Sta rt Date 02/12/2017 Inactive Pepcid AC 10 mg Tab RxNorm: 285805 1 Tablet(s) PO QAM No Start Date 0 02/19/2011 Inactive Coreg Oral RxNorm: Oral No Start Date 01/12/2014 Inactive primidone 50 mg tablet RxNorm: 187979 1/2 Tablet(s) PO QD for 7 days then increase to 1 tablet at bedtime No Start Date 01/08/2017 Inactive Medrol (Jose) 4 mg tablets in a dose pack RxNorm: 840038 Tablet(s) PO As Directed No Start Date 01/12/2016 Inactive Plavix 75 mg tablet RxNorm: 924110 1 Tablet(s) PO QD No Start Date Inactive cyclobenzaprine 10 mg tablet RxNorm: 218437 1 Tablet(s) PO TID as needed for spasm No Start Date 07/03/2013 Inactive Bevespi Aerosphere 9 mcg-4.8 mcg HFA aerosol inhaler RxNorm: 6158570 2 Puff(s) INH BID No Start Date 02/18/2019 Inactive tramadol 50 mg tablet RxNorm: 575687 1-2 Tablet(s) PO TID as ne eded for pain No Start Date 01/12/2019 Inactive clonazepam 1 mg tablet RxNorm: 374258 1 Tablet(s) PO QAM No Start D ate 09/18/2018 Inactive hydrocodone-acetaminophen 5 mg-500 mg Tab RxNorm: 679868 2 Tablet(s) PO Q4-6H prn No Start Date 10/19/2010 Inactive lisinopril 20 mg Tab RxNorm: 585009 1/2 Tablet(s) PO QD No Start Da te 03/12/2011 Inactive Lyrica 75 mg capsule RxNorm: 590920 1 Capsule(s) PO QHS No Start Da te 10/08/2019 Inactive Protonix 40 mg tablet,delayed release RxNorm: 932147 1 Tablet(s ) PO QD No Start Date 06/07/2014 Inactive Lipitor Oral RxNorm: Oral No Start Date 01/12/2014 Inactive primidone 50 mg tablet RxNorm: 037105 2 Tablet(s) PO QAM and 1 tablet at HS No Start Date 02/17/2019 Inactive hydrocodone-acetaminophen 10 mg-325 mg Tab RxNorm: 7803163 1-2 T ablet(s) PO QID No Start Date 02/13/2011 Inactive Ultram 50 mg tablet RxNorm: 592742 1-2 Tablet(s) PO QID as need ed for pain No Start Date 09/18/2012 Inactive Effient 10 mg Tab RxNorm: 472669 1 Tablet(s) PO QD No Start Date 01/2012 Inactive Bevespi Aerosphere 9 mcg-4.8 mcg HFA aerosol inhaler RxNorm: 8129769 2 Puff(s) INH BID No Start Date 10/29/2017 Inactive Neurontin Oral RxNorm: Oral No Start Date 01/12/2010 Inactive primidone 50 mg tablet RxNorm: 168144 1 Tablet(s) PO QD No Start Da te 01/12/2019 Inactive Chantix Starting Month Box 0.5 mg (11)-1 mg (42) Tabs in a Dose Pack RxNorm: 144268 Tablet(s) PO No Start Date 03/31/2012 Inactive atenolol 25 mg Tab RxNorm: 069989 1 Tablet(s) PO QD No Start Date 02/2012 Inactive Neurontin 600 mg Tab RxNorm: 567710 1 Tablet(s) PO QD No Start Date 0 03/16/2010 Inactive Nucynta 50 mg tablet RxNorm: 026345 1-2 Tablet(s) PO Q6H as nee ded for pain No Start Date 12/31/2012 Inactive simvastatin 40 mg Tab RxNorm: 121176 1 Tablet(s) PO QD No Start Date 03/21/2012 Inactive Medication Administered No Medication Administered data Immunizations Vaccine Codes Date Status Influenza CVX: 135 07/04/2017 Complete Results Observation Observation Code Item Item Code Result Date S ervice Location COMPLETE BLOOD COUNT [id number] WBC 4.9 10e9/L 09/30/19 20 Unknown COMPLETE BLOOD COUNT [id number] RBC 4.65 10e12/L 2019 Unknown COMPLETE BLOOD COUNT [id number] HEMOGLOBIN 13.8 g/dL 09/30/19 20 Unknown COMPLETE BLOOD COUNT [id number] HEMATOCRIT 42.3 % 09/30/19 20 Unknown COMPLETE BLOOD COUNT [id number] MCV 91.0 fL 0 Unknown COMPLETE BLOOD COUNT [id number] MCH 29.7 pg 0 Unknown COMPLETE BLOOD COUNT [id number] MCHC 32.6 g/dL 0 Unknown COMPLETE BLOOD COUNT [id number] PLATELET COUNT 230 10e9/L Unknown COMPLETE BLOOD COUNT 2515279 Mean Plt Volume 9.9 fL Unknown COMPLETE BLOOD COUNT [id number] Neut Auto 52.5 % 0 Unknown COMPLETE BLOOD COUNT [id number] Lymph Auto 30.8 % 09/30/19 Unknown COMPLETE BLOOD COUNT [id number] [place] Auto 11.2 % 0 Unknown COMPLETE BLOOD COUNT [id number] RDW 13.5 % 0 Unknown COMPLETE BLOOD COUNT [id number] Eos Auto 5.1 % 0 Unknown COMPLETE BLOOD COUNT [id number] Baso Auto 0.4 % 0 Unknown COMPLETE BLOOD COUNT 4537304 Neutrophil Abs 2.57 10e9/L Unknown COMPLETE BLOOD COUNT [id number] Lymphocyte Abs 1.51 10e9/L Unknown COMPLETE BLOOD COUNT 1405830 Monocyte Abs 0.55 10e9/L 09/17 Unknown COMPLETE BLOOD COUNT 0856983 Eosinophil Abs 0.25 10e9/L Unknown COMPLETE BLOOD COUNT [id number] RDW-SD 43.9 fL 0 Unknown COMPLETE BLOOD COUNT [id number] Basophil Abs 0.02 10e9/L 09/17 Unknown GFR CALC 4298207 GFR Non Afr Amr >60 mL/min 09/30/2019 Un known GFR CALC 5921026 GFR Afr Amr >60 mL/min 09/30/2019 Unknow n THYROID STIMULATING HORMONE 45258 TSH 1.129 uIU/mL 09/30/2019 Unknown PSA EQUIMOLAR BARBIE 04154 PSA Total 0.77 ng/mL 0 Unknown [facility] 30573 Cholesterol 192 mg/dL 09/30/2019 Unkno wn [facility] 91386 Triglyceride 86 mg/dL 09/30/2019 Unkn own [facility] 99152 HDL CHOLESTEROL 64 mg/dL 09/30/2019 U nknown [facility] 53683 Chol/HDL Ratio 3.00 ratio 09/30/2019 U nknown [facility] 13980 NON-HDL Chol 128 mg/dL 09/30/2019 Unkn own [facility] 58449 LDL Cholesterol 111 mg/dL 09/30/2019 U nknown COMPREHENSIVE METABOLIC 27177 AST 17 U/L 2019 Unknown COMPREHENSIVE METABOLIC 58579 ALT 10 U/L 2019 Unknown COMPREHENSIVE METABOLIC 46501 BUN 13 mg/dL 2019 Unknown COMPREHENSIVE METABOLIC 89784 ALBUMIN 4.3 g/dL 2019 Unknown COMPREHENSIVE METABOLIC 62037 CHLORIDE 102 mmol/L 09/30 Unknown COMPREHENSIVE METABOLIC 30650 Bili Total 0.6 mg/dL 09/30 Unknown COMPREHENSIVE METABOLIC 34231 ALK PHOS 91 U/L 2019 Unknown COMPREHENSIVE METABOLIC 73883 SODIUM 138 mmol/L 09/30 Unknown COMPREHENSIVE METABOLIC 82330 CREATININE 1.09 mg/dL 09/17 Unknown COMPREHENSIVE METABOLIC 50342 CALCIUM 9.0 mg/dL 2019 Unknown COMPREHENSIVE METABOLIC 31469 POTASSIUM 4.5 mmol/L 09/30 Unknown COMPREHENSIVE METABOLIC 32731 Total Protein 6.8 g/dL Unknown COMPREHENSIVE METABOLIC 27284 Glucose 91 mg/dL 2019 Unknown COMPREHENSIVE METABOLIC 08488 Bicarbonate 28 mmol/L 09/17 Unknown COMPREHENSIVE METABOLIC 93915 AGAP 8 mmol/L 2019 Unknown COMPLETE BLOOD COUNT [id number] WBC 4.9 10e9/L 09/04/20 18 Unknown COMPLETE BLOOD COUNT 7334095 RBC 4.42 10e12/L 2017 Unknown COMPLETE BLOOD COUNT [id number] HEMOGLOBIN 13.4 g/dL 09/04/20 18 Unknown COMPLETE BLOOD COUNT [id number] HEMATOCRIT 40.5 % 09/04/20 18 Unknown COMPLETE BLOOD COUNT 0866640 MCV 91.6 fL 8 Unknown COMPLETE BLOOD COUNT 0254488 MCH 30.3 pg 8 Unknown COMPLETE BLOOD COUNT 1330895 MCHC 33.1 g/dL 8 Unknown COMPLETE BLOOD COUNT 8824742 PLATELET COUNT 224 10e9/L Unknown COMPLETE BLOOD COUNT 7011376 Mean Plt Volume 9.9 fL Unknown COMPLETE BLOOD COUNT 8786540 Neut Auto 60.8 % 8 Unknown COMPLETE BLOOD COUNT 9051338 Lymph Auto 26.8 % 09/04/20 18 Unknown COMPLETE BLOOD COUNT 2464557 [place] Auto 10.4 % 8 Unknown COMPLETE BLOOD COUNT 9818646 Eos Auto 1.6 % 8 Unknown COMPLETE BLOOD COUNT 6639767 RDW 12.8 % 8 Unknown COMPLETE BLOOD COUNT 9027306 Baso Auto 0.4 % 8 Unknown COMPLETE BLOOD COUNT 0784316 Neutrophil Abs 2.98 10e9/L Unknown COMPLETE BLOOD COUNT [id number] Lymphocyte Abs 1.31 10e9/L Unknown COMPLETE BLOOD COUNT [id number] Monocyte Abs 0.51 10e9/L 08/17 Unknown COMPLETE BLOOD COUNT 7304084 Eosinophil Abs 0.08 10e9/L Unknown COMPLETE BLOOD COUNT [id number] Basophil Abs 0.02 10e9/L 08/17 Unknown COMPLETE BLOOD COUNT 4233448 RDW-SD 41.6 fL 8 Unknown COMPREHENSIVE METABOLIC 37811 AST 16 U/L 2017 Unknown COMPREHENSIVE METABOLIC 79234 ALT 8 U/L 2017 Unknown COMPREHENSIVE METABOLIC 47700 BUN 12 mg/dL 2017 Unknown COMPREHENSIVE METABOLIC 22191 ALBUMIN 4.4 g/dL 2017 Unknown COMPREHENSIVE METABOLIC 67506 CHLORIDE 107 mmol/L 09/04 Unknown COMPREHENSIVE METABOLIC 62770 Bili Total 1.0 mg/dL 09/04 Unknown COMPREHENSIVE METABOLIC 08060 ALK PHOS 58 U/L 2017 Unknown COMPREHENSIVE METABOLIC 60476 SODIUM 142 mmol/L 09/04 Unknown COMPREHENSIVE METABOLIC 59049 CREATININE 0.97 mg/dL 08/17 Unknown COMPREHENSIVE METABOLIC 21081 CALCIUM 9.2 mg/dL 2017 Unknown COMPREHENSIVE METABOLIC 67130 POTASSIUM 4.6 mmol/L 09/04 Unknown COMPREHENSIVE METABOLIC 52119 Total Protein 6.5 g/dL Unknown COMPREHENSIVE METABOLIC 86816 Glucose 96 mg/dL 2017 Unknown COMPREHENSIVE METABOLIC 39055 Bicarbonate 29 mmol/L 08/17 Unknown COMPREHENSIVE METABOLIC 79287 AGAP 6 mmol/L 2017 Unknown LIP[facility] GROUP 27685 Cholesterol 182 mg/dL 09/04/2018 Unkno wn L[facility] 22253 Triglyceride 84 mg/dL 09/04/2018 Unkn own L[facility] GROUP 30605 HDL CHOLESTEROL 76 mg/dL 09/04/2018 U nknown L[facility] 43934 Chol/HDL Ratio 2.39 ratio 09/04/2018 U nknown LIP[facility] GROUP 39315 NON-HDL Chol 106 mg/dL 09/04/2018 Unkn own L[facility] GROUP 47777 LDL Cholesterol 89 mg/dL 09/04/2018 U nknown GFR CALC 4855054 GFR Non Afr Amr >60 mL/min 09/04/2018 Un known GFR CALC 2456186 GFR Afr Amr >60 mL/min 09/04/2018 Unknow n THYROID STIMULATING HORMONE 04428 TSH 0.713 uIU/mL 09/04/2018 Unknown PSA EQUIMOLAR BARBIE 54979 PSA Total 0.66 ng/mL 8 Unknown A FOOD C P 8256976 [place] Cl Class 0 11/17/2017 Unknown A FOOD C P 4416481 [place] Ct <0.35 kU/L 11/17/2017 Unknow n A FOOD C P [id number] [place] Cl Class 0 11/17/2017 Unkn own A FOOD C P 1393552 [place] Ct <0.35 kU/L 11/17/2017 Unk nown A FOOD C P 0801537 [place] White Cl Class 0 11/17/2017 Unkno wn A FOOD C P 4030145 Egg White Ct <0.35 kU/L 11/17/2017 Unkn own A FOOD C P 6054477 Egg Yolk Cl Class 0 11/17/2017 Unknow n A FOOD C P 0940410 Egg Yolk Ct <0.35 kU/L 11/17/2017 Unkno wn A FOOD C P 2362556 Cow Milk Cl Class 0 11/17/2017 Unknow n A FOOD C P 8707658 Cow Milk Ct <0.35 kU/L 11/17/2017 Unkno wn A FOOD C P 6293111 Peanut Cl Class 0 11/17/2017 Unknown A FOOD C P 2357177 Peanut Ct <0.35 kU/L 11/17/2017 Unknown A FOOD C P 1035006 Shrimp Cl Class 0 11/17/2017 Unknown A FOOD C P [id number] [place] Ct <0.35 kU/L 11/17/2017 Unknown A FOOD C P 0417390 [place] Cl Class 0 11/17/2017 Unknown A FOOD C P 1218566 [place] Ct <0.35 kU/L 11/17/2017 Unknow n A FOOD C P 3304991 Wheat Cl Class 0 11/17/2017 Unknown A FOOD C P 5241037 Wheat Ct <0.35 kU/L 11/17/2017 Unknown A FOOD C P 4458179 Potato Cl Class 0 11/17/2017 Unknown A FOOD C P 1974073 Potato Ct <0.35 kU/L 11/17/2017 Unknown A FOOD C P [id number] Beef Cl Class 2 11/17/2017 Unknown A FOOD C P 9636850 Beef Ct 0.88 kU/L 11/17/2017 Unknown A FOOD C P 5550534 [place] Cl Class 0 11/17/2017 Unknown A FOOD C P 4018322 [place] Ct <0.35 kU/L 11/17/2017 Unknown A FOOD C P [id number] Pork Cl Class 0 11/17/2017 Unknown A FOOD C P [id number] Pork Ct <0.35 kU/L 11/17/2017 Unknown A FOOD C P 1740888 [place] Cl Class 0 11/17/2017 Unknown A FOOD C P [id number] [place] Ct <0.35 kU/L 11/17/2017 Unknown A FOOD C P 4068607 [place] Cl Class 0 11/17/2017 Unkn own A FOOD C P 5510851 [place] Ct <0.35 kU/L 11/17/2017 Unk nown A FOOD C P 8990504 [place] Cl Class 0 11/17/2017 Unknown A FOOD C P 2194850 [place] Ct <0.35 kU/L 11/17/2017 Unknown A FOOD C P 1361541 [place] Cl Class 0 11/17/2017 Unknown A FOOD C P 1016782 [place] Ct <0.35 kU/L 11/17/2017 Unknown A FOOD C P [id number] [place] CL Class 0 11/17/2017 Unknown A FOOD C P 0807547 [place] <0.35 kU/L 11/17/2017 Unknown A FOOD C P 5041250 [place] Cl Class 0 11/17/2017 Unknown A FOOD C P 5322359 [place] Ct <0.35 kU/L 11/17/2017 Unknown A FOOD C P 5074885 Oat Cl Class 0 11/17/2017 Unknown A FOOD C P [id number] Oat Ct <0.35 kU/L 11/17/2017 Unknown A FOOD C P 1315431 [place] Cl Class 0 11/17/2017 Unknown A FOOD C P 9389730 [place] Ct <0.35 kU/L 11/17/2017 Unknown A FOOD C P 1906987 [place] CL Class 0 11/17/2017 Un known A FOOD C P 2801144 [place] Ct <0.35 kU/L 11/17/2017 U nknown A FOOD C P 0096366 [place] Cl Class 0 11/17/2017 Unknown A FOOD C P 5429047 [place] Ct <0.35 kU/L 11/17/2017 Unknown A FOOD C P 6948040 [place] Meat Cl Class 0 11/17/2017 Unkn own A FOOD C P [id number] [place] Ct <0.35 kU/L 11/17/2017 Unk nown A NUTS PNL 9076368 Pe[place] Cl Class 0 11/17/2017 Unknown A NUTS PNL 1711042 [place] Ct <0.35 kU/L 11/17/2017 Unknown A NUTS PNL 2622521 [place] Meat Cl Class 0 11/17/2017 Unk nown A NUTS PNL 8576244 [place] Ct <0.35 kU/L 11/17/2017 Un known A NUTS PNL 8639105 [place] Cl Class 0 11/17/2017 Unkn own A NUTS PNL 1603386 [place] Ct <0.35 kU/L 11/17/2017 Unk nown A NUTS PNL 6116703 [place] Cl Class 0 11/17/2017 Unknown A NUTS PNL 1883866 [place] Ct <0.35 kU/L 11/17/2017 Unknown A NUTS PNL 2121833 [place] Cl Class 0 11/17/2017 Unknow n A NUTS PNL 5969907 [place] Ct <0.35 kU/L 11/17/2017 Unkno wn A NUTS PNL 7649921 [place] Cl Class 0 11/17/2017 Unkno wn A NUTS PNL 5264952 [place] Ct <0.35 kU/L 11/17/2017 Unkn own A NUTS PNL 0766559 [place] Cl Class 0 11/17/2017 Unknown A NUTS PNL 3498149 [place] Ct <0.35 kU/L 11/17/2017 Unknown A NUTS PNL 7918801 [place] Cl Class 0 11/17/2017 Unkno wn A NUTS PNL 2453402 [place] Ct <0.35 kU/L 11/17/2017 Unkn own A NUTS PNL 2710046 Allergen Interp See Note 11/17/2017 Un known A FRT/VG P 1069171 [place] Cl Class 0 11/17/2017 Unkn own A FRT/VG P [id number] [place] Ct <0.35 kU/L 11/17/2017 Unk nown A FRT/VG P 6333544 [place] Cl Class 0 11/17/2017 Unknown A FRT/VG P [id number] [place] Ct <0.35 kU/L 11/17/2017 Unknown A FRT/VG P 9254650 [place] Cl Class 0 11/17/2017 Unkn own A FRT/VG P 1898902 [place] Ct <0.35 kU/L 11/17/2017 Unk nown A FRT/VG P 2797724 [place] Cl Class 0 11/17/2017 Unknown A FRT/VG P 9614400 [place] Ct <0.35 kU/L 11/17/2017 Unknown A FRT/VG P 9850698 [place] Cl Class 0 11/17/2017 Unknown A FRT/VG P 3620639 [place] Ct <0.35 kU/L 11/17/2017 Unknown A FRT/VG P 0940685 [place] Cl Class 1 11/17/2017 Unknown A FRT/VG P 1846084 [place] Ct 0.48 kU/L 11/17/2017 Unknown A FRT/VG P 1986026 [place] Cl Class 0 11/17/2017 Unk nown A FRT/VG P 3556946 [place] [facility] <0.35 kU/L 11/17/2017 Un known A FRT/VG P 5572426 [place] Cl Class 0 11/17/2017 Unk nown A FRT/VG P [id number] [place] Ct <0.35 kU/L 11/17/2017 Un known A FRT/VG P 6693098 [place] Cl Class 0 11/17/2017 Unknown A FRT/VG P [id number] [place] Ct <0.35 kU/L 11/17/2017 Unknown A FRT/VG P 2810595 [place] Cl Class 0 11/17/2017 Unknown A FRT/VG P 1875025 [place] Ct <0.35 kU/L 11/17/2017 Unknown A FRT/VG P 8785409 [place] Cl Class 0 11/17/2017 Unkn own A FRT/VG P 2223633 [place] Ct <0.35 kU/L 11/17/2017 Unk nown A FRT/VG P 8883221 [place] Cl Class 0 11/17/2017 Unkn own A FRT/VG P 3562373 Swt [place] Ct <0.35 kU/L 11/17/2017 Unk nown THYROID STIMULATING HORMONE 61873 TSH 1.371 uIU/mL 09/03/2017 Unknown FREE T4 45047 T4 Free 1.26 ng/dL 09/03/2017 Unknown ASSAY TRIIODOTHYRONINE (T3) 70100 T3 Total 0.9 ng/mL Unknown COMPLETE BLOOD COUNT 9293498 WBC 5.9 10e9/L 07/31/20 17 Unknown COMPLETE BLOOD COUNT [id number] RBC 4.64 10e12/L 2016 Unknown COMPLETE BLOOD COUNT [id number] HEMOGLOBIN 14.2 g/dL 07/31/20 17 Unknown COMPLETE BLOOD COUNT 4443793 HEMATOCRIT 42.1 % 07/31/20 17 Unknown COMPLETE BLOOD COUNT 5686137 MCV 90.7 fL 7 Unknown COMPLETE BLOOD COUNT 5307634 MCH 30.6 pg 7 Unknown COMPLETE BLOOD COUNT 4657409 MCHC 33.7 g/dL 7 Unknown COMPLETE BLOOD COUNT 8470371 PLATELET COUNT 195 10e9/L Unknown COMPLETE BLOOD COUNT 1992135 Mean Plt Volume 10.0 fL Unknown COMPLETE BLOOD COUNT 9756378 Neut Auto 47.5 % 7 Unknown COMPLETE BLOOD COUNT 2251360 Lymph Auto 37.4 % 07/31/20 17 Unknown COMPLETE BLOOD COUNT 5128438 [place] Auto 11.7 % 7 Unknown COMPLETE BLOOD COUNT 5266827 Eos Auto 3.2 % 7 Unknown COMPLETE BLOOD COUNT 7087683 RDW 12.8 % 7 Unknown COMPLETE BLOOD COUNT 1285089 Baso Auto 0.2 % 7 Unknown COMPLETE BLOOD COUNT 9061371 Neutrophil Abs 2.80 10e9/L Unknown COMPLETE BLOOD COUNT 5609914 Lymphocyte Abs 2.21 10e9/L Unknown COMPLETE BLOOD COUNT 9716347 Monocyte Abs 0.69 10e9/L 07/18 Unknown COMPLETE BLOOD COUNT 2828850 Eosinophil Abs 0.19 10e9/L Unknown COMPLETE BLOOD COUNT 6761258 RDW-SD 41.6 fL 7 Unknown COMPLETE BLOOD COUNT 5467150 Basophil Abs 0.01 10e9/L 07/18 Unknown LIPID GROUP 99634 Cholesterol 186 mg/dL 07/31/2017 Unkno wn LIPID GROUP 13959 Triglyceride 129 mg/dL 07/31/2017 Unkn own L[facility] GROUP 61798 HDL CHOLESTEROL 79 mg/dL 07/31/2017 U nknown LIP[facility] GROUP 96815 Chol/HDL Ratio 2.35 ratio 07/31/2017 U nknown LIP[facility] GROUP 90917 NON-HDL Chol 107 mg/dL 07/31/2017 Unkn own LIPID GROUP 87618 LDL Cholesterol 81 mg/dL 07/31/2017 U nknown GFR CALC 3316696 GFR Afr Amr >60 mL/min 07/31/2017 Unknow n GFR CALC 4848596 GFR Non Afr Amr >60 mL/min 07/31/2017 Un known COMPREHENSIVE METABOLIC 40059 AST 19 U/L 2016 Unknown COMPREHENSIVE METABOLIC 14798 ALT 12 U/L 2016 Unknown COMPREHENSIVE METABOLIC 94377 BUN 15 mg/dL 2016 Unknown COMPREHENSIVE METABOLIC 74218 ALBUMIN 4.4 g/dL 2016 Unknown COMPREHENSIVE METABOLIC 61594 CHLORIDE 102 mmol/L 07/31 Unknown COMPREHENSIVE METABOLIC 27178 Bili Total 0.9 mg/dL 07/31 Unknown COMPREHENSIVE METABOLIC 52365 ALK PHOS 53 U/L 2016 Unknown COMPREHENSIVE METABOLIC 14971 SODIUM 138 mmol/L 07/31 Unknown COMPREHENSIVE METABOLIC 06567 CREATININE 1.06 mg/dL 07/18 Unknown COMPREHENSIVE METABOLIC 25253 CALCIUM 9.3 mg/dL 2016 Unknown COMPREHENSIVE METABOLIC 45501 POTASSIUM 4.0 mmol/L 07/31 Unknown COMPREHENSIVE METABOLIC 01656 Total Protein 6.8 g/dL Unknown COMPREHENSIVE METABOLIC 00286 Glucose 86 mg/dL 2016 Unknown COMPREHENSIVE METABOLIC 34257 Bicarbonate 28 mmol/L 07/18 Unknown COMPREHENSIVE METABOLIC 43946 AGAP 8 mmol/L 2016 Unknown COMPREHENSIVE METABOLIC 01687 AST 18 U/L 2015 Unknown COMPREHENSIVE METABOLIC 72430 ALT 9 U/L 2015 Unknown COMPREHENSIVE METABOLIC 29021 BUN 11 mg/dL 2015 Unknown COMPREHENSIVE METABOLIC 70158 ALBUMIN 4.2 g/dL 2015 Unknown COMPREHENSIVE METABOLIC 16996 CHLORIDE 104 mmol/L 05/19 Unknown COMPREHENSIVE METABOLIC 60488 Bili Total 1.2 mg/dL 05/19 Unknown COMPREHENSIVE METABOLIC 74385 ALK PHOS 54 U/L 2015 Unknown COMPREHENSIVE METABOLIC 79159 SODIUM 140 mmol/L 05/19 Unknown COMPREHENSIVE METABOLIC 39088 CREATININE 1.03 mg/dL 10/2015 Unknown COMPREHENSIVE METABOLIC 42923 CALCIUM 9.3 mg/dL 2015 Unknown COMPREHENSIVE METABOLIC 19528 POTASSIUM 4.9 mmol/L 05/19 Unknown COMPREHENSIVE METABOLIC 51649 Total Protein 6.7 g/dL Unknown COMPREHENSIVE METABOLIC 07239 Glucose 92 mg/dL 2015 Unknown COMPREHENSIVE METABOLIC 84850 Bicarbonate 28 mmol/L 10/2015 Unknown COMPREHENSIVE METABOLIC 58514 AGAP 8 mmol/L 2015 Unknown THYROID STIMULATING HORMONE 69444 TSH 1.545 uIU/mL 05/19/2016 Unknown GFR CALC 7714590 GFR Afr Amr >60 mL/min 05/19/2016 Unknow n GFR CALC 2676695 GFR Non Afr Amr >60 mL/min 05/19/2016 Un known VITAMIN B 12 67738 VITAMIN B12 298 pg/mL 05/19/2016 Unkn own COMPLETE BLOOD COUNT 1067359 WBC 5.2 10e9/L 05/19/20 16 Unknown COMPLETE BLOOD COUNT [id number] RBC 4.34 10e12/L 2015 Unknown COMPLETE BLOOD COUNT 9268601 HEMOGLOBIN 12.9 g/dL 05/19/20 16 Unknown COMPLETE BLOOD COUNT 8609219 HEMATOCRIT 38.9 % 05/19/20 16 Unknown COMPLETE BLOOD COUNT 2994708 MCV 89.6 fL 6 Unknown COMPLETE BLOOD COUNT 9201621 MCH 29.7 pg 6 Unknown COMPLETE BLOOD COUNT 8863043 MCHC 33.2 g/dL 6 Unknown COMPLETE BLOOD COUNT 5159204 PLATELET COUNT 200 10e9/L 10/2015 Unknown COMPLETE BLOOD COUNT 4684157 Mean Plt Volume 10.1 fL 10/2015 Unknown COMPLETE BLOOD COUNT 1026074 Neut Auto 45.4 % 6 Unknown COMPLETE BLOOD COUNT 6917277 Lymph Auto 35.6 % 05/19/20 16 Unknown COMPLETE BLOOD COUNT 2088540 [place] Auto 11.9 % 6 Unknown COMPLETE BLOOD COUNT 7996444 RDW 12.7 % 6 Unknown COMPLETE BLOOD COUNT 2945491 Eos Auto 6.7 % 6 Unknown COMPLETE BLOOD COUNT 0801496 Baso Auto 0.4 % 6 Unknown COMPLETE BLOOD COUNT 9892865 Neutrophil Abs 2.36 10e9/L Unknown COMPLETE BLOOD COUNT 2093705 Lymphocyte Abs 1.85 10e9/L Unknown COMPLETE BLOOD COUNT [id number] Monocyte Abs 0.62 10e9/L 10/2015 Unknown COMPLETE BLOOD COUNT 4644320 Eosinophil Abs 0.35 10e9/L Unknown COMPLETE BLOOD COUNT 4653898 RDW-SD 40.6 fL 6 Unknown COMPLETE BLOOD COUNT 0628713 Basophil Abs 0.02 10e9/L 10/2015 Unknown LIPID GROUP 69079 Cholesterol 197 mg/dL 05/19/2016 Unkno wn LIPID GROUP 04348 Triglyceride 92 mg/dL 05/19/2016 Unkn own LIPID GROUP 09851 HDL CHOLESTEROL 58 mg/dL 05/19/2016 U nknown LIPID GROUP 80350 Chol/HDL Ratio 3.40 ratio 05/19/2016 U nknown LIPID GROUP 26567 NON-HDL Chol 139 mg/dL 05/19/2016 Unkn own LIPID GROUP 69039 LDL Cholesterol 121 mg/dL 05/19/2016 U nknown FREE T4 79661 T4 Free 1.19 ng/dL 05/19/2016 Unknown COMPREHENSIVE METABOLIC 14765 AST 19 U/L 2014 Unknown COMPREHENSIVE METABOLIC 24640 ALT 10 IU/L 2014 Unknown COMPREHENSIVE METABOLIC 13787 BUN 20 MG/DL 2014 Unknown COMPREHENSIVE METABOLIC 59747 ALBUMIN 4.4 GM/DL 2014 Unknown COMPREHENSIVE METABOLIC 06539 CHLORIDE 104 MMOL/L 04/05 Unknown COMPREHENSIVE METABOLIC 38498 BILI TOT 2.2 MG/DL 2014 Unknown COMPREHENSIVE METABOLIC 54916 ALK PHOS 55 U/L 2014 Unknown COMPREHENSIVE METABOLIC 17214 SODIUM 138 MMOL/L 04/05 Unknown COMPREHENSIVE METABOLIC 96181 CREATININE 1.04 MG/DL 03/18 Unknown COMPREHENSIVE METABOLIC 91031 CALCIUM 9.3 MG/DL 2014 Unknown COMPREHENSIVE METABOLIC 38391 POTASSIUM 4.5 MMOL/L 04/05 Unknown COMPREHENSIVE METABOLIC 08840 PROT TOT 6.7 GM/DL 2014 Unknown COMPREHENSIVE METABOLIC 26279 Glucose 77 MG/DL 2014 Unknown COMPREHENSIVE METABOLIC 75628 BICARB 25 MMOL/L 2014 Unknown COMPREHENSIVE METABOLIC 00633 ANION GAP 9 MEQ/L 2014 Unknown GFR CALC 5121133 GFR AA >60 ML/MIN 04/05/2015 Unknown GFR CALC 6449108 GFR NON-AA >60 ML/MIN 04/05/2015 Unknown LIPID GROUP 66930 HDL TEST 60 MG/DL 04/05/2015 Unknown LIPID GROUP 46762 TRIG 70 MG/DL 04/05/2015 Unknown LIPID GROUP 93781 TEST LDL 137 MG/DL 04/05/2015 Unknown LIPID GROUP 86032 CHOL 211 MG/DL 04/05/2015 Unknown LIPID GROUP 19372 RCHOL/HDL 3.52 RATIO 04/05/2015 Unknow n LIPID GROUP 04517 NON-HDL CH 151 MG/DL 04/05/2015 Unknow n COMPLETE BLOOD COUNT [id number] WBC 5.3 10e9/L 04/05/20 15 Unknown COMPLETE BLOOD COUNT 7103843 RBC 4.42 10e12/L 2014 Unknown COMPLETE BLOOD COUNT 3676281 HGB 13.4 g/dL 5 Unknown COMPLETE BLOOD COUNT 1673668 HCT DET 39.6 % 5 Unknown COMPLETE BLOOD COUNT 3493871 MCV 89.6 fL 5 Unknown COMPLETE BLOOD COUNT 1873315 MCH 30.3 pg 5 Unknown COMPLETE BLOOD COUNT 4257874 MCHC 33.8 g/dL 5 Unknown COMPLETE BLOOD COUNT 9921871 PLT 201 10e9/L 04/05/20 15 Unknown COMPLETE BLOOD COUNT 6744445 MPV 10.3 fL 5 Unknown COMPLETE BLOOD COUNT 7612540 LUPE % 56.4 % 5 Unknown COMPLETE BLOOD COUNT 0152610 LY % 24.8 % 5 Unknown COMPLETE BLOOD COUNT 1079871 MON % 12.8 % 5 Unknown COMPLETE BLOOD COUNT 7984856 EOS % 5.4 % 5 Unknown COMPLETE BLOOD COUNT 2671433 BASO % 0.6 % 5 Unknown COMPLETE BLOOD COUNT 0969896 RDW 13.2 % 5 Unknown COMPLETE BLOOD COUNT 8242789 ABS LUPE 2.99 10e9/L 015 Unknown COMPLETE BLOOD COUNT 9993884 ABS LYMPH 1.31 10e9/L 015 Unknown COMPLETE BLOOD COUNT 6065981 ABS MONO 0.68 10e9/L 015 Unknown COMPLETE BLOOD COUNT 6844779 ABS EOS 0.29 10e9/L 015 Unknown COMPLETE BLOOD COUNT 7057312 ABS BASO 0.03 10e9/L 015 Unknown COMPLETE BLOOD COUNT 3623993 RDW-SD 42.3 fL 5 Unknown LIPID GROUP 80684 HDL TEST 51 MG/DL 07/19/2012 Unknown LIPID GROUP 15178 TRIG 129 MG/DL 07/19/2012 Unknown LIPID GROUP 23931 TEST LDL 98 MG/DL 07/19/2012 Unknown LIPID GROUP 55403 CHOL 175 MG/DL 07/19/2012 Unknown LIPID GROUP 75135 RCHOL/HDL 3.43 RATIO 07/19/2012 Unknow n COMPREHENSIVE METABOLIC 67342 AST 18 U/L 2011 Unknown COMPREHENSIVE METABOLIC 93815 ALT 12 IU/L 2011 Unknown COMPREHENSIVE METABOLIC 19418 BUN 10 MG/DL 2011 Unknown COMPREHENSIVE METABOLIC 62717 ALBUMIN 4.1 GM/DL 2011 Unknown COMPREHENSIVE METABOLIC 02624 CHLORIDE 103 MMOL/L 07/19 Unknown COMPREHENSIVE METABOLIC 93269 BILI TOT 0.9 MG/DL 2011 Unknown COMPREHENSIVE METABOLIC 40139 ALK PHOS 62 U/L 2011 Unknown COMPREHENSIVE METABOLIC 79068 SODIUM 138 MMOL/L 07/19 Unknown COMPREHENSIVE METABOLIC 83970 CREATININE 1.08 MG/DL 10/2011 Unknown COMPREHENSIVE METABOLIC 22639 CALCIUM 9.1 MG/DL 2011 Unknown COMPREHENSIVE METABOLIC 71309 POTASSIUM 4.2 MMOL/L 07/19 Unknown COMPREHENSIVE METABOLIC 88807 PROT TOT 6.7 GM/DL 2011 Unknown COMPREHENSIVE METABOLIC 46081 Glucose 101 MG/DL 2011 Unknown COMPREHENSIVE METABOLIC 31881 BICARB 27 MMOL/L 2011 Unknown COMPREHENSIVE METABOLIC 41742 ANION GAP 8 MEQ/L 2011 Unknown GFR CALC [id number] GFR AA >60 ML/MIN 07/19/2012 Unknown GFR CALC [id number] GFR NON-AA >60 ML/MIN 07/19/2012 Unknown Procedures Procedure Codes Date ROUTINE VENIPUNCTURE CPT-4: 43085 09/30/2019 COMPREHEN METABOLIC PANEL CPT-4: 00149 09/30/2019 COMPLETE CBC W/AUTO DIFF WBC CPT-4: 76651 09/30/2019 ASSAY OF PSA TOTAL CPT-4: 47345 09/30/2019 ASSAY THYROID STIM HORMONE CPT-4: 88794 09/30/2019 LIPID PANEL CPT-4: 07640 09/30/2019 ROUTINE VENIPUNCTURE CPT-4: 42047 09/24/2019 COMPLETE CBC W/AUTO DIFF WBC CPT-4: 54679 09/24/2019 COMPREHEN METABOLIC PANEL CPT-4: 78101 09/24/2019 LIPID PANEL CPT-4: 08819 09/24/2019 ASSAY THYROID STIM HORMONE CPT-4: 32499 09/24/2019 THER/PROPH/DIAG INJ SC/IM CPT-4: 18414 01/13/2019 TRIAMCINOLONE ACET INJ NOS CPT-4: J3301 01/13/2019 DEXAMETHASONE SODIUM PHOS CPT-4: J1100 01/13/2019 ROUTINE VENIPUNCTURE CPT-4: 91634 09/04/2018 COMPREHEN METABOLIC PANEL CPT-4: 22032 09/04/2018 COMPLETE CBC W/AUTO DIFF WBC CPT-4: 05382 09/04/2018 LIPID PANEL CPT-4: 49604 09/04/2018 ASSAY OF PSA TOTAL CPT-4: 82715 09/04/2018 ASSAY THYROID STIM HORMONE CPT-4: 67003 09/04/2018 URINALYSIS NONAUTO W/O SCOPE CPT-4: 07897 05/15/2018 ROUTINE VENIPUNCTURE CPT-4: 02662 11/16/2017 A FRT/VG P CPT-4: 0377486 11/16/2017 A FOOD C P CPT-4: 4657977 11/16/2017 A NUTS PNL CPT-4: 0269456 11/16/2017 THER/PROPH/DIAG INJ SC/IM CPT-4: 12991 11/06/2017 TRIAMCINOLONE ACET INJ NOS CPT-4: J3301 11/06/2017 DEXAMETHASONE SODIUM PHOS CPT-4: J1100 11/06/2017 ROUTINE VENIPUNCTURE CPT-4: 65015 09/03/2017 ASSAY OF FREE THYROXINE CPT-4: 90321 09/03/2017 ASSAY THYROID STIM HORMONE CPT-4: 22884 09/03/2017 ASSAY TRIIODOTHYRONINE (T3) CPT-4: 03804 09/03/2017 ROUTINE VENIPUNCTURE CPT-4: 65448 07/31/2017 COMPREHEN METABOLIC PANEL CPT-4: 62198 07/31/2017 COMPLETE CBC W/AUTO DIFF WBC CPT-4: 10686 07/31/2017 LIPID PANEL CPT-4: 22286 07/31/2017 FLU [facility]ACC [facility] ANTIG 65 AND OLDER CPT-4: 49705 07/04/2017 ADMIN INFLUENZA VIRUS VAC CPT-4: G0008 07/04/2017 ROUTINE VENIPUNCTURE CPT-4: 99106 02/26/2017 ASSAY THYROID STIM HORMONE CPT-4: 30923 02/26/2017 COMPREHEN METABOLIC PANEL CPT-4: 73698 02/26/2017 COMPLETE CBC W/AUTO DIFF WBC CPT-4: 43441 02/26/2017 LIPID PANEL CPT-4: 93863 02/26/2017 ASSAY OF PSA TOTAL CPT-4: 96270 02/26/2017 FLUZONE, 5ML (Medicare) CPT-4: Q2038 06/28/2016 ADMIN INFLUENZA VIRUS VAC CPT-4: G0008 06/28/2016 ROUTINE VENIPUNCTURE CPT-4: 04093 05/19/2016 ASSAY OF FREE THYROXINE CPT-4: 53331 05/19/2016 ASSAY THYROID STIM HORMONE CPT-4: 34097 05/19/2016 COMPREHEN METABOLIC PANEL CPT-4: 31386 05/19/2016 COMPLETE CBC W/AUTO DIFF WBC CPT-4: 93077 05/19/2016 LIPID PANEL CPT-4: 92661 05/19/2016 VITAMIN B-12 CPT-4: 64437 05/19/2016 PPPS, initial visit CPT-4: G0438 05/10/2016 ROUTINE VENIPUNCTURE CPT-4: 57209 04/05/2015 ASSAY THYROID STIM HORMONE CPT-4: 61072 04/05/2015 COMPREHEN METABOLIC PANEL CPT-4: 68299 04/05/2015 COMPLETE CBC W/AUTO DIFF WBC CPT-4: 95266 04/05/2015 LIPID PANEL CPT-4: 27753 04/05/2015 ASSAY OF PSA TOTAL CPT-4: 64396 04/05/2015 ROUTINE VENIPUNCTURE CPT-4: 24464 07/19/2012 COMPREHEN METABOLIC PANEL CPT-4: 04244 07/19/2012 LIPID PANEL CPT-4: 14460 07/19/2012 ELECTROCARDIOGRAM COMPLETE CPT-4: 84048 03/22/2012 Vital Signs Date Vital 09/24/2019 Blood Pressure 1: 125/72 Code: 8480-6 BMI: 19.8 Code: 46328-4 Heart Rate 1: 88 bpm Height: 5'11" [...] 1: 102/60 Code: 8480-6 BMI: 19.1 Code: 47182-5 Heart Rate 1: 82 bpm Height: 5'11" Respiratory Rate: 22 bpm SpO2: 97% Tempera ture: 36.4 (C) / 97.6 (F) Weight: 137 lbs 04/25/2018 Blood Pressure 1: 118/64 Code: 8480-6 BMI: 19.2 Code: 51569-4 Heart Rate 1: 98 bpm Height: 5'11" Respiratory Rate: 20 bpm SpO2: 99% Tempera ture: 36.4 (C) / 97.6 (F) Weight: 138 lbs 11/06/2017 Blood Pressure 1: 108/68 Code: 8480-6 BMI: 18.5 Code: 32503-9 Heart Rate 1: 68 bpm Height: 5'11" Respiratory Rate: 20 bpm SpO2: 96% Tempera ture: 36.8 (C) / 98.2 (F) Weight: 133 lbs 09/03/2017 Blood Pressure 1: 122/64 Code: 8480-6 BMI: 17.6 Code: 72110-9 Heart Rate 1: 90 bpm Height: 5'11" Respiratory Rate: 20 bpm SpO2: 98% Tempera ture: 36.4 (C) / 97.6 (F) Weight: 126 lbs 08/21/2017 Blood Pressure 1: 114/80 Code: 8480-6 BMI: 17.9 Code: 43937-3 Heart Rate 1: 80 bpm Height: 5'11" Respiratory Rate: 20 bpm SpO2: 95% Tempera ture: 36.6 (C) / 97.9 (F) Weight: 128 lbs 02/13/2017 Blood Pressure 1: 122/60 Code: 8480-6 BMI: 18.5 Code: 37356-9 Heart Rate 1: 76 bpm Height: 5'11" Respiratory Rate: 20 bpm SpO2: 96% Tempera ture: 36.9 (C) / 98.4 (F) Weight: 133 lbs 11/23/2016 Blood Pressure 1: 126/70 Code: 8480-6 BMI: 18.5 Code: 79270-4 Heart Rate 1: 100 bpm Height: 5'11" Respiratory Rate: 20 bpm SpO2: 96% Tempera ture: 37.1 (C) / 98.8 (F) Weight: 133 lbs 05/23/2016 Blood Pressure 1: 128/82 Code: 8480-6 BMI: 18.5 Code: 27463-7 Heart Rate 1: 88 bpm Height: 5'11" Respiratory Rate: 20 bpm Temperature: 36 .7 (C) / 98.0 (F) Weight: 133 lbs 05/10/2016 Blood Pressure 1: 146/70 Code: 8480-6 BMI: 18.5 Code: 51651-7 Heart Rate 1: 84 bpm Height: 5'11" Respiratory Rate: 20 bpm Temperature: 36 .7 (C) / 98.1 (F) Weight: 133 lbs 04/01/2015 Blood Pressure 1: 102/60 Code: 8480-6 BMI: 18.5 Code: 69512-3 Heart Rate 1: 64 bpm Height: 5'11" Respiratory Rate: 20 bpm Temperature: 36 .8 (C) / 98.2 (F) Weight: 133 lbs 01/13/2014 Blood Pressure 1: 124/78 Code: 8480-6 BMI: 19.8 Code: 17894-8 Heart Rate 1: 76 bpm Height: 5'11" Respiratory Rate: 20 bpm Temperature: 36 .8 (C) / 98.2 (F) Weight: 142 lbs 04/03/2012 Blood Pressure 1: 106/76 Code: 8480-6 BMI: 20.9 Code: 63961-9 Heart Rate 1: 84 bpm Height: 5'11" Respiratory Rate: 20 bpm Temperature: 36 .7 (C) / 98.0 (F) Weight: 150 lbs 12/20/2011 Blood Pressure 1: 116/60 Code: 8480-6 BMI: 20.1 Code: 16565-0 Heart Rate 1: 80 bpm Height: 5'11" Respiratory Rate: 20 bpm Temperature: 36 .4 (C) / 97.6 (F) Weight: 144 lbs 10/24/2011 Blood Pressure 1: 132/74 Code: 8480-6 BMI: 19.7 Code: 32265-9 Heart Rate 1: 96 bpm Height: 5'11" [...] 04/05/2015 follow up 04/01/2015 follow up 01/13/2014 [facility] from [facility] in November 2012 lab draw 07/19/2012 follow up 04/03/2012 S/P stent placement in LAD, changed effient to plavix hip pain 12/20/2011 dyskinesia or tremor 10/24/2011 follow up 03/13/2011 started on effient, zocor, and atenolol follow up 02/20/2011 [facility]/Dr Christian rojas follow up 02/23/2010 [facility], appt with Dr Bajwa 03/22/10 insomnia 01/12/2010 problems falling and staying asleep, takes nortriptyline Encounters Encounter Performer Location Codes Date () NURSE/OUTPATIENT VISIT EST Diagnosis: Essential (primary) hypertension[ICD10: I10] Diagnosis: Mixed hyperlipidemia[ICD10: E78.2] Diagnosis: Encounter for screening for malignant neoplasm of prostate[ICD10: Z12.5] Vonnie COLMENARES [employer] CPT-4: 52654 09/30/2019 ([id number]) OFFICE/OUTPATIENT VISIT EST Diagnosis: Encounter for therapeutic drug level monitoring[ICD10: Z51.81] Diagnosis: Essential tremor[ICD10: G25.0] Verna Ramirez VONNIE [employer] CPT-4: 33892 09/24/2019 ([id number]) OFFICE/OUTPATIENT VISIT EST Diagnosis: Noninfective gastroenteritis and colitis, unspecified[ICD10: K52.9] Diagnosis: Hemorrhage of anus and rectum[ICD10: K62.5] Vonnie COLMENARES [employer] CPT-4: 65001 05/26/2019 ([id number]) OFFICE/OUTPATIENT VISIT EST Diagnosis: Other intervertebral disc degeneration, 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] Diagnosis: Other forms of dyspnea[ICD10: R06.09] Vonnie RODGERS [employer] CPT-4: 58179 03/17/2019 OFFICE/OUTPATIENT VISIT EST Diagnosis: Other intervertebral disc degeneration, 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] Diagnosis: Other symptoms and signs involving the musculoskeletal system[ICD10: R29.898] Vonnie MATHEWS [facility] CPT-4: 02050 02/18/2019 ([id number]) OFFICE/OUTPATIENT VISIT EST Diagnosis: Other allergic rhinitis[ICD10: J30.89] Akilah MATHEWS DO [facility] CPT-4: 01992 01/13/2019 ([id number]) NURSE/OUTPATIENT VISIT EST Diagnosis: Mixed hyperlipidemia[ICD10: E78.2] Diagnosis: Essential (primary) hypertension[ICD10: I10] Diagnosis: Encounter for screening for malignant neoplasm of prostate[ICD10: Z12.5] Diagnosis: Encounter for general adult medical examination with abnormal findings[ICD10: Z00.01] Diagnosis: Benign prostatic hyperplasia without lower urinary tract symptoms[ICD10: N40.0] Vonnie MATHEWS DO [facility] CPT-4: 39961 09/04/2018 ([id number]) OFFICE/OUTPATIENT VISIT EST Diagnosis: Otorrhea, left ear[ICD10: H92.12] Diagnosis: Impacted cerumen, right ear[ICD10: H61.21] Verna MATHEWS [facility] CPT-4: 75653 09/03/2018 ([id number]) OFFICE/OUTPATIENT VISIT EST Diagnosis: Other intervertebral disc degeneration, 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] Diagnosis: Primary insomnia[ICD10: F51.01] Diagnosis: Essential tremor[ICD10: G25.0] Vonnie MATHEWS [facility] CPT-4: 30743 08/26/2018 ([id number]) OFFICE/OUTPATIENT VISIT EST Diagnosis: Pelvic and perineal pain[ICD10: R10.2] Verna MATHEWS [facility] CPT-4: 56952 05/15/2018 ([id number]) OFFICE/OUTPATIENT VISIT EST Diagnosis: Encounter for therapeutic drug level monitoring[ICD10: Z51.81] Diagnosis: Acute sinusitis, unspecified[ICD10: J01.90] Diagnosis: Other intervertebral disc degeneration, 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] Diagnosis: Essential tremor[ICD10: G25.0] Diagnosis: Raynaud's syndrome without gangrene[ICD10: I73.00] Verna ASCENCIOLINE Denia SEBASTIANNDER [facility] CPT-4: 21930 04/25/2018 ([id number]) OFFICE/OUTPATIENT VISIT EST Diagnosis: Idiopathic urticaria[ICD10: L50.1] Diagnosis: Other urticaria[ICD10: L50.8] Vonnie COLMENARES Denia SEBASTIANNDMAXI [facility] CPT-4: 21482 11/16/2017 ([id number]) OFFICE/OUTPATIENT VISIT EST Diagnosis: Idiopathic urticaria[ICD10: L50.1] Diagnosis: Other urticaria[ICD10: L50.8] Diagnosis: Other forms of dyspnea[ICD10: R06.09] Vonnie RODGERS GilbertoKim REID [facility] CPT-4: 52719 11/06/2017 ([id number]) OFFICE/OUTPATIENT VISIT EST Diagnosis: Dyspnea, unspecified[ICD10: R06.00] Diagnosis: Abnormal weight loss[ICD10: R63.4] Vonnie LUCIA Denia SEBASTIANNDMAXI [facility] CPT-4: 44195 09/03/2017 ([id number]) OFFICE/OUTPATIENT VISIT EST 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] Diagnosis: Anemia, unspecified[ICD10: D64.9] Vonnie Galarza Denia SEBASTIANNDMAXI [facility] CPT-4: 35581 07/31/2017 ([id number]) OFFICE/OUTPATIENT VISIT EST Diagnosis: FLU VACCINE[ICD10: Z23] Vonnie [facility] CPT-4: 67250 07/04/2017 ([id number]) OFFICE/OUTPATIENT VISIT EST Diagnosis: Mixed hyperlipidemia[ICD10: E78.2] Diagnosis: Essential tremor[ICD10: G25.0] 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] Diagnosis: Essential (primary) hypertension[ICD10: I10] Diagnosis: Supraventricular tachycardia[ICD10: I47.1] Diagnosis: Other fatigue[ICD10: R53.83] Diagnosis: Encounter for screening for malignant neoplasm of prostate[ICD10: Z12.5] Vonnie MATHEWS DO [facility] CPT-4: 15521 02/26/2017 ([id number]) OFFICE/OUTPATIENT VISIT EST Diagnosis: Essential tremor[ICD10: G25.0] Vonnie MATHEWS DO [facility] CPT-4: 18151 02/13/2017 ([id number]) OFFICE/OUTPATIENT VISIT EST Diagnosis: Essential tremor[ICD10: G25.0] Diagnosis: Other intervertebral disc degeneration, 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] Vonnie MATHEWS DO [facility] CPT-4: 58368 11/23/2016 ([id number]) OFFICE/OUTPATIENT VISIT EST Diagnosis: FLU VACCINE[ICD10: Z23] Vonnie GERMAN DO [facility] CPT-4: 82276 06/28/2016 OFFICE/OUTPATIENT VISIT EST Diagnosis: Open bite of right hand, initial encounter[ICD10: S61.451A] Vonnie MATHEWS DO [facility] CPT-4: 60296 05/23/2016 ([id number]) OFFICE/OUTPATIENT VISIT EST Diagnosis: Encounter for general adult medical examination with abnormal findings[ICD10: Z00.01] Diagnosis: Mixed hyperlipidemia[ICD10: E78.2] Diagnosis: Essential tremor[ICD10: G25.0] 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] Vonnie MATHEWS DO [facility] CPT-4: 47311 05/19/2016 ([id number]) OFFICE/OUTPATIENT VISIT EST Diagnosis: HYPERLIPIDEMIA NEC/NOS[ICD9: 272.4] Diagnosis: CAD[ICD9: 414.00] Diagnosis: TACHYCARDIA[ICD9: 785.0] Diagnosis: HYPERTENSION[ICD9: 401.9] Diagnosis: Routine medical exam[ICD9: V70.0] Vonnie Sebastianalyssamaxi LAIBRADYMARSHA [facility]IANC[facility]ARSKY [facility] [employer] CPT-4: 60155 04/05/2015 ([id number]) OFFICE/OUTPATIENT VISIT EST Diagnosis: HYPERTENSION[ICD9: 401.9] Diagnosis: HYPERLIPIDEMIA NEC/NOS[ICD9: 272.4] Diagnosis: CAD[ICD9: 414.00] Diagnosis: LUMB/LUMBOSAC DISC DEGEN[ICD9: 722.52] Vonnie Romulojuan miguel GASPAR Denia [facility]IANCLEARS[facility] CPT-4: 77816 04/01/2015 ([id number]) OFFICE/OUTPATIENT VISIT EST Diagnosis: CHEST PAIN NOS[ICD9: 786.50] Diagnosis: PAIN IN THORACIC SPINE[ICD9: 724.1] Diagnosis: HYPERTENSION[ICD9: 401.9] Diagnosis: GERD[ICD9: 530.81] Vonnie Reid [facility] CPT-4: 89110 01/13/2014 ([id number]) OFFICE/OUTPATIENT VISIT EST Diagnosis: CAD[ICD9: 414.00] Diagnosis: HYPERLIPIDEMIA NEC/NOS[ICD9: 272.4] Vonnie Romulojuan miguel ANNA Denia [facility] CPT-4: 61124 07/19/2012 ([id number]) OFFICE/OUTPATIENT VISIT EST Diagnosis: CAD[ICD9: 414.00] Diagnosis: INSOMNIA NOS[ICD9: 780.52] Vonnie Romulojuan miguel Loza OR YULISA [facility] CPT-4: 57006 04/03/2012 ([id number]) OFFICE/OUTPATIENT VISIT EST Diagnosis: CHEST PAIN NOS[ICD9: 786.50] Diagnosis: CAD[ICD9: 414.00] Vonnie Romuloalyssamaxi LAIVONNIE GilbertoKim ROMULOND [facility] CPT-4: 21747 03/22/2012 ([id number]) OFFICE/OUTPATIENT VISIT EST Diagnosis: PROSTATITIS[ICD9: 601.9] Diagnosis: TREMOR NEC[ICD9: 333.1] Vonnie Loza [facility] CPT-4: 11011 12/20/2011 OFFICE/OUTPATIENT VISIT EST Diagnosis: TREMOR NEC[ICD9: 333.1] Diagnosis: TACHYCARDIA[ICD9: 785.0] Diagnosis: HYPERTENSION[ICD9: 401.9] Vonnie Loza [facility] CPT-4: 10556 10/24/2011 OFFICE/OUTPATIENT VISIT EST Vonnie [facility]IAN [facility] CPT- 4: 21183 03/13/2011 ([id number]) OFFICE/OUTPATIENT VISIT EST Vonnie GASPAR SKim [facility] CPT-4: 46643 02/20/2011 ([id number]) OFFICE/OUTPATIENT VISIT, EST Vonnie NELSON S. [facility] CPT-4: 10742 02/23/2010 ([id number]) OFFICE/OUTPATIENT VISIT, EST Vonnie [facility] CPT-4: 06662 01/12/2010 Plan of Care Planned Activity Notes Codes Status Date Appointment: Vonnie Mathews WPtel: [address] [facility] LAB 09/30/2019 Appointment: Verna Ramirez [address] [id number] [place] RESCHEDULED 09/25/2019 Visit Diagnosis Plan: Encounter for therapeutic drug l evel monitoring Discussion: UDS and contract completed today. ICD-9 : V58.83 ICD-10 : Z51.81 09/24/2019 Visit Diagnosis Plan: Essential tremor Discussion: sta ble on clonazepam. educated patient about purchasing a large, heavy pen that will allow him to improve his writing. instructed him that pens can be purchased on [employer]. ICD-9 : 333.1 ICD-10 : G25.0 09/24/2019 Appointment: Verna Ramirez [address] [id number] US MEDICATION REVIEW 09/24/2019 Visit Diagnosis Plan: Hemorrhage of anus and rectum Di scussion: Update colonoscopy ICD-9 : 569.3 ICD-10 : K62.5 05/26/2019 Visit Diagnosis Plan: Noninfective gastroenteritis and colitis, unspecified Discussion: Flagyl Siloam diet Update colonoscopy ICD-9 : 558.9 ICD-10 : K52.9 05/26/2019 Appointment: Vonnie Mathews WPtel: [address] [place], [place] [id number] [place] record request faxed 05/23; LM with medical records 05/26/19 Hospital Follow Up 05/26/2019 Care Plan: Referral Order SNOMED-CT : [id number] Pending 05/26/2019 Visit Diagnosis Plan: Other intervertebral disc degene ration, lumbar region Discussion: Increase lyrica to 150mg po q HS Continue stretches from PT [facility] Fwup after that appointment ICD-9 : 722.52 ICD-10 : M51.36 03/17/2019 Appointment: Vonnie Mathews WPtel: [address] [place], [place] [phone] [place] FOLLOW UP 03/17/2019 Visit Diagnosis Plan: [...] q HS once CT scan results obtained [facility] Follow Up: 3 weeks ICD-9 : 722.52 ICD-10 : M51.36 02/18/2019 Appointment: Vonnie Mathews WPtel: [address] [place], [place] [id number] [place] FOLLOW UP 02/18/2019 Appointment: Vonnie Mathews WPtel: [address] [place], [place] [id number] [place] CANCELED 02/18/2019 Visit Diagnosis Plan: Other [...] J30.89 01/13/2019 Appointment: Akilah Lopez [address] Due for annual wellness ACUTE ILLNESS 01/14/20 Appointment: Vonnie Mathews WPtel: [address] [place] [address] [place] LAB 09/04/2018 Visit Diagnosis Plan: Otorrhea, [...] : H61.21 09/03/2018 Appointment: Verna Ramirez [address] ACUTE ILLNESS 09/03/2018 Visit Diagnosis Plan: [...] : G25.0 08/26/2018 Appointment: Vonnie Mathews WPtel: [facility] [address] FOLLOW UP 08/26/2018 Visit Diagnosis Plan: [...] ICD-10 : R10.2 05/15/2018 Appointment: Verna Ramirez [address] [place], [place] [id number] ACUTE ILLNESS 05/15/2018 Patient Education: Patient Medication Summary Completed 05/15/2018 Care Plan: US EXAM PELVIC COMPLETE scrotal LOINC : 34180-4 Pending 05/15/2018 Visit Diagnosis Plan: Other intervertebral [...] Verna Ramirez 504 [id number] MEDICATION REVIEW 04/25/2018 Patient Education: Patient Medication Summary Completed 04/25/2018 Appointment: Vonnie Mathewstel: [address] [place], [place] [id number] 11/16/2017 Patient Education: Patient Medication Summary Completed [...] : L50.1 11/06/2017 Appointment: Vonnie Mathews WPtel: [address] [place], [place] [phone] FOLLOW UP 11/06/2017 Patient Education: Patient Medication Summary Completed 11/06/2017 Referral: Jonh Das WPtel: Referral Initiated 10/15/2017 Visit Diagnosis Plan: Dyspnea, unspecified Discussion: Check PFTs May need CT scan of chest if above normal and with ongoing dyspnea/weight loss ICD-9 : 786.09 ICD-10 : R06.00 09/03/2017 Visit Diagnosis Plan: Abnormal weight loss Discussion: Check TSh, Free T4, TT3 ICD-9 : 783.21 ICD-10 : R63.4 09/03/2017 Appointment: Vonnie Mathews WPtel: [address] [place], [place] [phone] FOLLOW UP 09/03/2017 Patient Education: Patient Medication Summary Completed 09/03/2017 Visit Diagnosis Plan: Mixed hyperlipidemia Discussion: Lab discussed ICD-9 : 272.4 ICD-10 : E78.2 08/21/2017 Visit Diagnosis Plan: Essential tremor Discussion: Sta ble on Primidone ICD-9 : 333.1 ICD-10 : G25.0 08/21/2017 Visit Diagnosis Plan: Atherosclerotic he art disease of three affiliated coronary artery without angina pectoris Discussion: Sees [...] I10 08/21/2017 Appointment: Vonnie Mathews WPtel: [address] [place], [place] [phone] [place] FOLLOW UP 08/21/2017 Patient Education: Patient Medication Summary Completed 08/21/2017 Appointment: Vonnie Mathews WPtel: [address] [place], [place] [phone] [place] LAB 07/31/2017 Patient Education: Patient Medication Summary Completed 07/31/2017 Appointment: Vonnie Mathews WPtel: [address] [place], [place] [phone] [place] INJECTION 07/04/2017 Patient Education: Patient Medication Summary Completed 07/04/2017 Appointment: Vonnie Mathews WPtel: [address] [place], [place] [phone] [place] LAB 02/26/2017 Patient Education: Patient Medication Summary Completed 02/26/2017 Visit Diagnosis Plan: Essential tremor Discussion: Con tinue clonazepam at 1mg q AM and primidone 50mg q HS Follow Up: 3 months ICD-9 : 333.1 ICD-10 : G25.0 02/13/2017 Appointment: Vonnie Mathews WPtel: [address] [place], [place] [phone] [place] 02/08 confirmed~sl FOLLOW UP 02/13/2017 Patient Education: Patient Medication Summary Completed 02/13/2017 Appointment: Vonnie Mathews WPtel: [address] [place] [phone] [place] RESCHEDULED 01/23/2017 Visit Diagnosis Plan: Other intervertebral disc degene ration, lumbar region Discussion: DC oxycodone Tramadol 50mg 1-2 po TID prn pain Follow Up: 2 months ICD-9 : 722.52 ICD-10 : M51.36 11/23/2016 Visit Diagnosis Plan: Essential tremor Discussion: Inc rease clonazepam to 1mg po BID Discussed sinemet ICD-9 : 333.1 ICD-10 : G25.0 11/23/2016 Appointment: Vonnie Mathews WPtel: [phone] [facility] US 11/22 confirmed~sl MEDICATION REVIEW 11/23/2016 Patient Education: Patient Medication Summary Completed 11/23/2016 Patient Education: [facility] - [employer] - Clonazepam - 18-64 - Dynamic Portal ID Completed 11/23/2016 Appointment: Vonnie Mathews WPtel: [address] [place], [place] [phone] [place] INJECTION 06/28/2016 Patient Education: Patient Medication Summary Completed 06/28/2016 Referral: Fernando Day WPtel: [address] [phone] per Maribeth, the patient is sched [...] worsening 05/23/2016 Appointment: Vonnie Mathews WPtel: [address] [facility] ER Follow UP 05/23/2016 Patient Education: Patient Medication Summary Completed 05/23/2016 Appointment: Vonnie Mathews WPtel: [address] [facility] US LAB 05/19/2016 Patient Education: Patient Medication Summary Completed 05/19/2016 Visit Plan: Change coreg to 3.125mg BID Trial of low dose clonazepam 0.5mg BID for tremors Fwup with Dr. Ramsey as scheduled Return for fasting lab--CBC, CMP, TSH, free T4, Lipids, PSA, B12 Proceed with Colonoscopy 05/10/2016 Appointment: Vonnie Mathews WPtel: [address] [place], [place] [phone] 05/09 confirmed~sl Annual Well Visit 05/10/2016 Patient Education: Patient Medication Summary Completed 05/10/2016 Care Plan: Referral Order SNOMED-CT : [id number] Pending 05/10/2016 Appointment: Vonnie Mathews WPtel: [address] [place] [phone] [place] Rescheduled for 05/10/16 at 2PM~lb RESCHEDULED 04/26/2016 Referral: Danilo Ramsey [facility] Referral Initiated 04/29/2015 Appointment: Vonnie Mathews WPtel: [address] [place], [place] [phone] [place] LAB 04/05/2015 Patient Education: Patient Medication Summary Completed 04/05/2015 Visit Plan: Return in AM for fasting lab --CMP, lipids, CBC, TSH, PSA Change hydrocodone to oxycodone 7.5/325mg 1-2 po TID Schedule with cardiology Needs colonoscopy once cardiology evaluation complete Will need to restart chol meds after lab Recheck 1mo on pain meds 04/01/2015 Appointment: Vonnie Mathews WPtel: [address] [place] [phone] 03/31 confirmed -mf PHYSICAL 04/01/2015 Patient Education: Patient Medication Summary Completed 04/01/2015 Appointment: Vonnie Mathewstel: [address] [place], [place] [phone] Annual Well Visit 09/23/2014 Visit Plan: Continue protonix Pt has fwu p with Card next month Rec chiropracter or PT for ribs/thoracics being out and could be contributing to chest pain 01/13/2014 Appointment: Vonnie Mathews WPtel: [address] [place] [address] [place] FOLLOW UP 01/13/2014 Patient Education: Patient Medication Summary Completed 01/13/2014 Appointment: Ariella Mcnally WPtel: [address] [place] [address] US FOLLOW UP 12/12/2013 Appointment: Malika Cárdenas WPtel: [address] [place] [address] PHYSICAL 12/12/2013 Appointment: Vonnie Mathews WPtel: [address] [place] [address] ACUTE ILLNESS 02/20/2013 Appointment: Vonnie Mathews WPtel: [address] [place] [address] LAB 07/19/2012 Patient Education: Patient Medication Summary Completed 07/19/2012 Appointment: Vonnie Mathews WPtel: [address] [place] [address] FOLLOW UP 04/03/2012 Patient Education: Patient Medication Summary Completed 04/03/2012 Appointment: Vonnie Mathews WPtel: [address] [place] [address] ACUTE ILLNESS 03/22/2012 Patient Education: Patient Medication Summary Completed 03/22/2012 Appointment: Vonnie Mathews WPtel: [address] [place] [address] [place] FOLLOW UP 12/26/2011 Visit Plan: Magy fernandez m eds 12/20/2011 Appointment: Vonnie Mathews WPtel: [address] [place], [place] [phone] ACUTE ILLNESS 12/20/2011 Patient Education: Patient Medication Summary Completed 12/20/2011 Visit Plan: Change neurontin to Cymbalta 30mg for 1wk then 60mg QD Add Propranolol for tremor 10/24/2011 Appointment: Vonnie Mathews WPtel: [address] [place] [address] ACUTE ILLNESS 10/24/2011 Appointment: Vonnie Mathews WPtel: [address] [place] [address] ACUTE ILLNESS 10/24/2011 Patient Education: Patient Medication Summary Completed 10/24/2011 Visit Plan: Continue current meds and fw up with Card as scheduled 03/13/2011 Appointment: Vonnie Mathews WPtel: [address] [place] [address] FOLLOW UP 03/13/2011 Patient Education: Patient Medication Summary Completed 03/13/2011 Visit Plan: Will obtain all records and lab from [place] Discussed will likely need heart cath which pt states that Card did talk to him about in the hospital 02/20/2011 Appointment: Vonnie Mathews WPtel: [address] [place] [address] ACUTE ILLNESS 02/20/2011 Patient Education: Patient Medication Summary Completed 02/20/2011 Visit Plan: Cont Pepcid and Prilosec See Card for cardiac cath. 02/23/2010 Appointment: Vonnie Mathews WPtel: [address] [place], [place] [id number] FOLLOW UP 02/23/2010 Patient Education: Patient Medication Summary Completed 02/23/2010 Visit Plan: Increase Pamelor to 75mg qhs Increase Hydrocodone to 10/325mg 1-2 po q6 prn 01/12/2010 Appointment: Vonnie Mathews WPtel: [address] [place] [address] ACUTE ILLNESS 01/12/2010 Patient Education: Patient Medication Summary Completed 01/12/2010 Referral: Iván Pardo WPtel: [facility] [address], [id number] [place] Referral Initiated Referral: Fernando DayKim WPtel: #1 [facility] [id number] [place] Referral Completed Referral: DayFernando perezKim WPtel: #1 [facility] [place]out [id number] [place] Referral Appointment Requested Instructions Comment . [...]
--- OUTSIDE RECORDS SUMMARY | 2020-02-10 08:21 | XMS REPORT | CCD ---
Author Author Nash Mathews D.O. Organization [facility] DO [facility] Address [address] [place] [address] Phone Care Team Providers Care Veterinary Laboratory Technician Name Role Phone Vonnie Mathews D.O., PP Unavailable CCM Unavailable Summary Purpose Interface Exchange Insurance Providers Payer name Policy type / Coverage type Covered alliance party ID Effective Begin Date Effective End Date [employer] MEDICARE Medicare Part B [id number] 2019 Unknown Family History Family History data not found Social History Social History Element Codes Description Effective Dates Marital status Unknown 10/24/[address]: 849939865 Nonsmoker 03/29/2011 Allergies, Adverse Reactions, Alerts Substance [...] R63.4 08/21/2017 Active 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: [...] Fill Instructions Lyrica 75 mg capsule RxNorm: 912005 1 Capsule(s) Oral every nig ht at bedtime 10/09/2019 01/07/2020 Active clonazepam 1 mg tablet RxNorm: 796250 TAKE 1 TABLET BY MOUTH EV SUSAN AM 09/23/2019 10/22/2019 Active clonazepam 1 mg tablet RxNorm: 719107 TAKE 1 TABLET BY MOUTH EV SUSAN AM 08/21/2019 09/22/2019 Inactive Singulair 10 mg tablet RxNorm: 324747 TABLET(S) 1 TABLET(S) PO QD 1 10/11/2019 Active Flagyl 500 mg tablet RxNorm: 484175 1 Tablet(s) PO TID 05/26/2019 Inactive clonazepam 1 mg tablet RxNorm: 669085 TAKE 1 TABLET BY MOUTH EV SUSAN MORNING 05/23/2019 06/21/2019 Inactive pravastatin 20 mg tablet RxNorm: 306448 1 Tablet(s) PO QD 04/14/2019 10/10/2019 Active Needs updated fasting labs Singulair 10 mg tablet RxNorm: 339042 Tablet(s) 1 TABLET(S) PO QD 0 04/14/2019 07/12/2019 Inactive clonazepam 1 mg tablet RxNorm: 714515 1 Tablet(s) PO QAM 02/21/2019 0 05/23/2019 Inactive Bevespi Aerosphere 9 mcg-4.8 mcg HFA aerosol inhaler RxNorm: 6650934 2 Puff(s) INH BID 02/19/2019 No Stop Date Active ProAir HFA 90 mcg/actuation aerosol inhaler RxNorm: 665016 2 Puff(s) INH Q4H as needed 02/19/2019 09/24/2019 Inactive metoprolol tartrate 25 mg tablet RxNorm: 802731 1/2 Tablet(s) PO BI D 02/18/2019 05/18/2019 Inactive pravastatin 20 mg tablet RxNorm: 751224 1 Tablet(s) PO QD Needs updated fasting labs 01/13/2019 04/14/2019 Inactive Needs updated fa sting labs Singulair 10 mg tablet RxNorm: 093670 Tablet(s) 1 TABLET(S) PO QD 0 01/13/2019 04/12/2019 Inactive Plavix 75 mg tablet RxNorm: 877748 Tablet(s) 1 TABLET(S) PO QD 04/201906/20/2019 Inactive [SAVINGS FOR NON-COVERED SHANDA GS -- BIN:[id number], PCN: ASPROD1, Group: XXXXX, ID# [id number], Questions: . THIS IS NOT INSURANCE.] Singulair 10 mg tablet RxNorm: 602768 1 TABLET(S) PO QD 10/29/2018 Inactive primidone 50 mg tablet RxNorm: 498680 2 TABLET(S) PO BI D TAKE 2 TABLETS BY MOUTH EVERY NIGHT AT BEDTIME 10/07/2018 01/12/2019 Inactive Patient requests 90 days supply pravastatin 20 mg tablet RxNorm: 881835 1 TABLET(S) PO QD 09/23/2018 01/12/2019 Inactive clonazepam 1 mg tablet RxNorm: 047484 1 Tablet(s) PO QAM 09/19/2018 0 12/17/2018 Inactive primidone 50 mg tablet RxNorm: 998387 TABLET(S) TAKE 2 TABLETS BY MOUTH EVERY NIGHT AT BEDTIME 09/18/2018 01/12/2019 Inactive ciprofloxacin 0.2 % ear drops in a dropperette RxNorm: 81732 6 2 Drop(s) left otic (ear) BID 09/03/2018 09/09/2018 Inactive primidone 50 mg tablet RxNorm: 535840 2 Tablet(s) PO BI D TAKE 2 TABLETS BY MOUTH EVERY NIGHT AT BEDTIME 08/26/2018 10/06/2018 Inactive Ambien 5 mg tablet RxNorm: 398888 TAKE 1 TABLET BY MOUTH EVERY NIGHT AT BEDTIME 08/05/2018 09/03/2018 Inactive Singulair 10 mg tablet RxNorm: 852353 1 TABLET(S) PO QD 07/23/2018 Inactive clonazepam 1 mg tablet RxNorm: 304830 TAKE 1 TABLET BY MOUTH EV SUSAN MORNING 07/23/2018 08/21/2018 Inactive Plavix 75 mg tablet RxNorm: 988890 1 TABLET(S) PO QD 07/04/201812/22 Inactive [SAVINGS FOR NON-COVERED DRUGS -- BIN:00 9659, PCN: ASPROD1, Group: XXXXX, ID# [id number], Questions: . THIS IS NOT INSURANCE.] clonazepam 1 mg tablet RxNorm: 543388 TAKE 1 TABLET BY MOUTH EV SUSAN MORNING 06/25/2018 07/23/2018 Inactive clonazepam 1 mg tablet RxNorm: 005838 TAKE 1 TABLET BY MOUTH EV SUSAN MORNING 05/23/2018 06/21/2018 Inactive primidone 50 mg tablet RxNorm: 586777 Tablet(s) TAKE 2 TABLETS BY MOUTH EVERY NIGHT AT BEDTIME 05/16/2018 08/25/2018 Inactive oxycodone-acetaminophen 7.5 mg-325 mg tablet RxNorm: 4741173 1-2 Tablet(s) PO TID as needed 04/25/2018 05/24/2018 Inactive Singulair 10 mg tablet RxNorm: 593575 1 Tablet(s) PO QD 04/25/2018 Inactive Medrol (Jose) 4 mg tablets in a dose pack RxNorm: 211016 Tablet(s) PO take as directed 04/25/2018 09/02/2018 Inactive clonazepam 1 mg tablet RxNorm: 078090 TAKE 1 TABLET BY MOUTH EV SUSAN MORNING 04/24/2018 05/22/2018 Inactive Plavix 75 mg tablet RxNorm: 135505 1 TABLET(S) PO QD 04/04/201807/02 Inactive [SAVINGS FOR NON-COVERED DRUGS -- BIN:00 358, PCN: ASPROD1, Group: XXXXX, ID# [id number], Questions: . THIS IS NOT INSURANCE.] pravastatin 20 mg tablet RxNorm: 407822 1 Tablet(s) PO QD 03/21/2018 09/16/2018 Inactive ProAir HFA 90 mcg/actuation aerosol inhaler RxNorm: 154092 2 Puff(s) INH Q4H as needed 03/18/2018 03/17/2018 Inactive tamsulosin 0.4 mg capsule RxNorm: 729663 1 CAPSULE(S) PO QD 018 01/12/2019 Inactive clonazepam 1 mg tablet RxNorm: 417182 1 Tablet(s) PO QAM 02/25/2018 0 04/25/2018 Inactive tamsulosin 0.4 mg capsule RxNorm: 657165 1 Capsule(s) PO QD 018 03/13/2018 Inactive tamsulosin 0.4 mg capsule RxNorm: 514154 1 Capsule(s) PO QD 018 02/03/2018 Inactive tamsulosin 0.4 mg capsule RxNorm: 719764 1 Capsule(s) PO QD 018 02/12/2018 Inactive Ambien 5 mg tablet RxNorm: 528032 Tablet(s) TAKE 1 TAB LET BY MOUTH EVERY NIGHT AT BEDTIME 01/24/2018 08/05/2018 Inactive primidone 50 mg tablet RxNorm: 453317 Tablet(s) TAKE 2 TABLETS BY MOUTH EVERY NIGHT AT BEDTIME 01/18/2018 05/16/2018 Inactive cyclobenzaprine 10 mg tablet RxNorm: 024095 1 Tablet(s) PO TID as needed for muscle spasm 01/11/2018 02/09/2018 Inactive [SAVINGS FOR NON -COVERED DRUGS -- BIN:963179, PCN: ASPROD1, Group: XXXXX, ID# [id number], Questions: . THIS IS NOT INSURANCE.] clonazepam 1 mg tablet RxNorm: 668814 1 Tablet(s) PO QAM 12/24/2017 0 02/21/2018 Inactive prednisone 20 mg tablet RxNorm: 113518 1 Tablet(s) PO QD 11/06/2017 0 11/10/2017 Inactive EpiPen 2-Jose 0.3 mg/0.3 mL injection, auto-injector RxNorm: 673132 1 Unit Dose IM as needed 11/06/2017 09/24/2019 Inactive ProAir HFA 90 mcg/actuation aerosol inhaler RxNorm: 990211 2 Puff(s) INH Q4H as needed 10/30/2017 03/17/2018 Inactive primidone 50 mg tablet RxNorm: 857627 TAKE 2 TABLETS BY MOUTH EVERY NIGHT AT BEDTIME 10/15/2017 01/17/2018 Inactive Plavix 75 mg tablet RxNorm: 558693 1 Tablet(s) PO QD 10/01/201703/29 Inactive [SAVINGS FOR NON-COVERED DRUGS -- BIN:00 3585, PCN: ASPROD1, Group: XXXXX, ID# [id number], Questions: . THIS IS NOT INSURANCE.] clonazepam 1 mg tablet RxNorm: 842501 1 Tablet(s) PO QAM 09/19/2017 0 12/16/2017 Inactive primidone 50 mg tablet RxNorm: 280893 2 Tablet(s) PO QHS 08/29/2017 0 01/18/2018 Inactive oxycodone-acetaminophen 7.5 mg-325 mg tablet RxNorm: 9191664 1-2 Tablet(s) PO TID as needed 08/22/2017 09/19/2017 Inactive pravastatin 20 mg tablet RxNorm: 670389 1 Tablet(s) PO QD 08/21/2017 03/21/2018 Inactive carvedilol 3.125 mg tablet RxNorm: 830296 1 Tablet(s) P O BID to replace 6.25mg dose 08/21/2017 09/02/2017 Inactive primidone 50 mg tablet RxNorm: 650913 TAKE 2 TABLETS BY MOUTH EVERY NIGHT AT BEDTIME 06/18/2017 08/28/2017 Inactive clonazepam 1 mg tablet RxNorm: 565516 1 Tablet(s) PO QAM 06/04/2017 1 11/02/2016 Inactive Plavix 75 mg tablet RxNorm: 860464 1 Tablet(s) PO QD 04/10/201710/01 Inactive [SAVINGS FOR NON-COVERED DRUGS -- BIN:00 8923, PCN: ASPROD1, Group: XXXXX, ID# [id number], Questions: . THIS IS NOT INSURANCE.] pravastatin 20 mg tablet RxNorm: 843430 1 Tablet(s) PO QD 02/26/2017 08/24/2017 Inactive carvedilol 3.125 mg tablet RxNorm: 682858 1 Tablet(s) P O BID to replace 6.25mg dose 02/26/2017 08/21/2017 Inactive Ultram 50 mg tablet RxNorm: 147614 TAKE 1 TO 2 TABLETS BY MOUTH THREE TIMES DAILY NEEDED FOR PAIN 02/26/2017 03/07/2017 Inactive pravastatin 20 mg tablet RxNorm: 622067 1 Tablet(s) PO QD 02/26/2017 08/21/2017 Inactive carvedilol 3.125 mg tablet RxNorm: 859470 1 Tablet(s) P O BID to replace 6.25mg dose 02/26/2017 08/20/2017 Inactive clonazepam 0.5 mg tablet RxNorm: 157033 1 Tablet(s) PO QAM 02/14/20 17 02/13/2017 Inactive primidone 50 mg tablet RxNorm: 234519 1 Tablet(s) PO QHS 02/13/2017 0 05/01/2017 Inactive clonazepam 1 mg tablet RxNorm: 340064 1 Tablet(s) PO QAM 02/13/2017 0 05/13/2017 Inactive primidone 50 mg tablet RxNorm: 627940 1/2 Tablet(s) PO QD for 7 days then increase to 1 tablet at bedtime 01/09/2017 02/12/2017 Inactive pravastatin 20 mg tablet RxNorm: 434900 Tablet(s) 1 TABLET(S) PO QD 11/29/2016 02/25/2017 Inactive clonazepam 1 mg tablet RxNorm: 894439 1 Tablet(s) PO BID replac es 0.5mg dose 11/23/2016 01/08/2017 Inactive pravastatin 20 mg tablet RxNorm: 213575 1 TABLET(S) PO QD 11/17/2016 11/28/2016 Inactive Ambien 5 mg tablet RxNorm: 327669 TAKE 1 TABLET BY MOUTH EVERY NIGHT AT BEDTIME 11/17/2016 12/14/2016 Inactive clonazepam 0.5 mg tablet RxNorm: 533691 TAKE 1 TABLET BY MOUTH TWICE DAILY 11/17/2016 11/22/2016 Inactive Plavix 75 mg tablet RxNorm: 865652 1 Tablet(s) PO QD 11/06/201604/09 Inactive [SAVINGS FOR NON-COVERED DRUGS -- BIN:3584, PCN: ASPROD1, Group: XXXXX, ID# [id number], Questions: . THIS IS NOT INSURANCE.] Plavix 75 mg tablet RxNorm: 593890 1 Tablet(s) PO QD 08/28/201611/05 Inactive [SAVINGS FOR NON-COVERED DRUGS -- BIN:5, PCN: ASPROD1, Group: XXXXX, ID# [id number], Questions: . THIS IS NOT INSURANCE.] Lidoderm 5 % topical patch RxNorm: 6215250 Application T OP 2 patches for 12hrs then off for 12hrs 08/28/2016 08/27/2016 Inactive clonazepam 0.5 mg tablet RxNorm: 743456 1 Tablet(s) PO BID 08/07/20 16 11/22/2016 Inactive pravastatin 20 mg tablet RxNorm: 690484 1 Tablet(s) PO QD 08/07/2016 11/04/2016 Inactive cyclobenzaprine 10 mg tablet RxNorm: 431015 1 Tablet(s) PO TID as needed for muscle spasm 08/07/2016 09/05/2016 Inactive [SAVINGS FOR NON -COVERED DRUGS -- BIN:610839, PCN: ASPROD1, Group: XXXXX, ID# [id number], Questions: . THIS IS NOT INSURANCE.] Plavix 75 mg tablet RxNorm: 771176 1 Tablet(s) PO QD 08/07/201608/27 Inactive [SAVINGS FOR NON-COVERED DRUGS -- BIN:00 3585, PCN: ASPROD1, Group: XXXXX, ID# [id number], Questions: . THIS IS NOT INSURANCE.] carvedilol 3.125 mg tablet RxNorm: 846620 1 Tablet(s) P O BID to replace 6.25mg dose 08/07/2016 02/02/2017 Inactive clonazepam 0.5 mg tablet RxNorm: 541142 1 Tablet(s) PO BID 07/04/20 16 08/07/2016 Inactive Plavix 75 mg tablet RxNorm: 790832 1 TABLET(S) PO QD 06/20/201608/06 Inactive [SAVINGS FOR NON-COVERED DRUGS -- BIN:00 3585, PCN: ASPROD1, Group: XXXXX, ID# [id number], Questions: . THIS IS NOT INSURANCE.] clonazepam 0.5 mg tablet RxNorm: 266489 1 Tablet(s) PO BID 06/09/20 16 07/03/2016 Inactive pravastatin 20 mg tablet RxNorm: 892171 1 Tablet(s) PO QD 05/23/2016 08/06/2016 Inactive pravastatin 20 mg tablet RxNorm: 930541 1 Tablet(s) PO QD 05/23/2016 05/22/2016 Inactive carvedilol 3.125 mg tablet RxNorm: 819600 1 Tablet(s) P O BID to replace 6.25mg dose 05/10/2016 08/06/2016 Inactive carvedilol 3.125 mg tablet RxNorm: 553722 1 Tablet(s) P O BID to replace 6.25mg dose 05/10/2016 05/09/2016 Inactive clonazepam 0.5 mg tablet RxNorm: 803811 1 Tablet(s) PO BID 05/10/20 16 06/08/2016 Inactive carvedilol 6.25 mg tablet RxNorm: 816016 1 Tablet(s) PO QD 05/10/20 16 05/10/2016 Inactive simvastatin 40 mg tablet RxNorm: 905046 1 TABLET(S) PO QD 04/10/2016 05/09/2016 Inactive Medrol (Jose) 4 mg tablets in a dose pack RxNorm: 218175 Tablet(s) PO As Directed 01/13/2016 05/09/2016 Inactive cyclobenzaprine 10 mg tablet RxNorm: 948664 1 TABLET(S) PO TID NEEDED FOR SPASM 01/11/2016 03/10/2016 Inactive [SAVINGS FOR NON -COVERED DRUGS -- BIN:470322, PCN: ASPROD1, Group: XXXXX, ID# [id number], Questions: . THIS IS NOT INSURANCE.] Plavix 75 mg tablet RxNorm: 856254 1 Tablet(s) PO QD 12/30/201506/19 Inactive [SAVINGS FOR NON-COVERED DRUGS -- BIN:00 3585, PCN: ASPROD1, Group: XXXXX, ID# [id number], Questions: . THIS IS NOT INSURANCE.] Ambien 5 mg tablet RxNorm: 659730 TAKE 1 TABLET BY MOUTH EVERY DAY AT BEDTIME 11/15/2015 11/17/2016 Inactive simvastatin 40 mg tablet RxNorm: 902336 1 Tablet(s) PO QD 10/11/2015 01/12/2019 Inactive simvastatin 40 mg tablet RxNorm: 370871 1 Tablet(s) PO QD 10/08/2015 10/10/2015 Inactive Ambien 5 mg tablet RxNorm: 007026 TAKE 1 TABLET BY MOUTH EVERY NIGHT AT BEDTIME 07/27/2015 11/15/2015 Inactive Plavix 75 mg tablet RxNorm: 167074 1 Tablet(s) PO QD 06/28/201512/29 Inactive [SAVINGS FOR NON-COVERED DRUGS -- BIN:00 3585, PCN: ASPROD1, Group: XXXXX, ID# [id number], Questions: . THIS IS NOT INSURANCE.] Coreg 6.25 mg tablet RxNorm: 824635 1 TABLET(S) PO BID 04/19/2015 Inactive [SAVINGS FOR NON-COVERED DRUGS -- BIN:00 3585, PCN: ASPROD1, Group: XXXXX, ID# [id number], Questions: . THIS IS NOT INSURANCE.] simvastatin 40 mg tablet RxNorm: 759898 1 Tablet(s) PO QD 04/05/2015 04/04/2015 Inactive simvastatin 40 mg tablet RxNorm: 135286 1 Tablet(s) PO QD 04/05/2015 10/11/2015 Inactive Plavix 75 mg tablet RxNorm: 813599 1 TABLET(S) PO QD 03/22/201504/20 Inactive [SAVINGS FOR NON-COVERED DRUGS -- BIN:00 3585, PCN: ASPROD1, Group: XXXXX, ID# [id number], Questions: . THIS IS NOT INSURANCE.] Plavix 75 mg tablet RxNorm: 852517 1 Tablet(s) PO QD 03/22/201506/28 Inactive [SAVINGS FOR NON-COVERED DRUGS -- BIN:00 3585, PCN: ASPROD1, Group: XXXXX, ID# [id number], Questions: . THIS IS NOT INSURANCE.] Ambien 5 mg tablet RxNorm: 809906 1 Tablet(s) PO QHS 12/17/201407/28 Inactive [SAVINGS FOR NON-COVERED DRUGS -- BIN:00 3585, PCN: ASPROD1, Group: XXXXX, ID# [id number], Questions: . THIS IS NOT INSURANCE.] Coreg 6.25 mg tablet RxNorm: 200451 1 Tablet(s) PO BID 12/17/2014 Inactive [SAVINGS FOR NON-COVERED DRUGS -- BIN:00 3585, PCN: ASPROD1, Group: XXXXX, ID# [id number], Questions: . THIS IS NOT INSURANCE.] Plavix 75 mg tablet RxNorm: 877217 1 Tablet(s) PO QD 12/17/201403/16 Inactive [SAVINGS FOR NON-COVERED DRUGS -- BIN:00 3585, PCN: ASPROD1, Group: XXXXX, ID# [id number], Questions: . THIS IS NOT INSURANCE.] cyclobenzaprine 10 mg tablet RxNorm: 437576 1 Tablet(s) PO TID as needed for spasm 12/17/2014 03/16/2015 Inactive [SAVINGS FOR NON -COVERED DRUGS -- BIN:776280, PCN: ASPROD1, Group: XXXXX, ID# [id number], Questions: . THIS IS NOT INSURANCE.] Coreg 6.25 mg tablet RxNorm: 134852 1 Tablet(s) PO BID 10/21/201409/2014 Inactive [SAVINGS FOR NON-COVERED DRUGS -- BIN:00 3585, PCN: ASPROD1, Group: XXXXX, ID# XXXXXXX, Questions: . THIS IS NOT INSURANCE.] Plavix 75 mg tablet RxNorm: 548789 1 Tablet(s) PO QD 10/21/201412/16 Inactive [SAVINGS FOR NON-COVERED DRUGS -- BIN:00 3585, PCN: ASPROD1, Group: XXXXX, ID# XXXXXXX, Questions: . THIS IS NOT INSURANCE.] Plavix 75 mg tablet RxNorm: 377978 1 Tablet(s) PO QD Ne eds routine check up--last seen March 2012 09/21/2014 10/20/2014 Inactive [SAVINGS FOR UNINSURED PATIENTS -- BIN:096838, PCN: ASPROD1, Group: AME08, ID# [id number], Process claim through [employer], for questions: . THIS IS NOT INSURANCE.] Ambien 5 mg tablet RxNorm: 324634 1 Tablet(s) PO QHS 09/21/201412/16 Inactive [SAVINGS FOR UNINSURED PATIENTS -- BIN:0 22455, PCN: ASPROD1, Group: AME08, ID# [id number], Process claim through [employer], for questions: . THIS IS NOT INSURANCE.] Coreg 6.25 mg tablet RxNorm: 003894 1 Tablet(s) PO BID 09/21/201411/2014 Inactive [SAVINGS FOR UNINSURED PATIENTS -- BIN:0 64378, PCN: ASPROD1, Group: AME08, ID# [id number], Process claim through MedIBellcoact, for questions: . THIS IS NOT INSURANCE.] Plavix 75 mg tablet RxNorm: 285393 1 Tablet(s) PO QD Ne eds routine check up--last seen March 2012 08/04/2014 09/02/2014 Inactive [SAVINGS FOR UNINSURED PATIENTS -- BIN:346058, PCN: ASPROD1, Group: AME08, ID# [id number], Process claim through [employer], for questions: . THIS IS NOT INSURANCE.] Plavix 75 mg tablet RxNorm: 800403 1 Tablet(s) PO QD Ne eds routine check up--last seen March 2012 08/03/2014 08/03/2014 Inactive Protonix 40 mg tablet,delayed release RxNorm: 332836 1 Tablet(s ) PO QD 06/08/2014 02/17/2019 Inactive [SAVINGS FOR UNINSUR ED PATIENTS -- BIN:073095, PCN: ASPROD1, Group: AME08, ID# [id number], Process claim through [employer], for questions: . THIS IS NOT INSURANCE.] hydrocodone 10 mg-acetaminophen 325 mg tablet RxNorm: 890387 1 Tablet(s) PO BID as needed for pain 02/18/2014 03/31/2015 Inactive Coreg 6.25 mg tablet RxNorm: 958561 1 Tablet(s) PO BID 02/02/2014 Inactive Protonix 40 mg granules delayed-release packet RxNorm: 723165 1 Tablet(s) PO QD 01/13/2014 06/08/2014 Inactive Plavix 75 mg tablet RxNorm: 831350 1 Tablet(s) PO QD Ne eds routine check up--last seen March 2012 01/13/2014 08/02/2014 Inactive Plavix 75 mg tablet RxNorm: 062049 1 Tablet(s) PO QD Ne eds routine check up--last seen March 2012 12/09/2013 01/07/2014 Inactive Coreg 6.25 mg tablet RxNorm: 645728 1 Tablet(s) PO BID 12/09/2013 Inactive Cymbalta 60 mg capsule,delayed release RxNorm: 781168 1 Capsule (s) PO QD 10/31/2013 01/12/2014 Inactive Coreg 6.25 mg tablet RxNorm: 325169 1 Tablet(s) PO BID 10/31/2013 Inactive Plavix 75 mg tablet RxNorm: 219446 1 Tablet(s) PO QD Ne eds routine check up--last seen March 2012 10/31/2013 11/29/2013 Inactive Coreg 6.25 mg tablet RxNorm: 864808 1 Tablet(s) PO BID 10/31/2013 Inactive atorvastatin 40 mg tablet RxNorm: 290269 1 Tablet(s) PO QD 10/31/1903/31/2015 Inactive Plavix 75 mg tablet RxNorm: 942503 1 Tablet(s) PO QD Ne eds routine check up--last seen March 2012 09/23/2013 10/30/2013 Inactive cyclobenzaprine 10 mg tablet RxNorm: 562156 1 Tablet(s) PO TID as needed for spasm 09/23/2013 No Stop Date Active cyclobenzaprine 10 mg tablet RxNorm: 751269 1 Tablet(s) PO TID as needed for spasm 07/04/2013 09/22/2013 Inactive atorvastatin 40 mg tablet RxNorm: 039663 1 Tablet(s) PO QD 06/23/20 13 10/30/2013 Inactive atorvastatin 40 mg tablet RxNorm: 350135 1 Tablet(s) PO QD 04/22/20 13 06/22/2013 Inactive Nucynta 50 mg tablet RxNorm: 006050 1-2 Tablet(s) PO Q6H as nee ded for pain 01/01/2013 01/12/2014 Inactive Ambien 5 mg tablet RxNorm: 474815 1 Tablet(s) PO QHS 10/16/201201/13 Inactive Plavix 75 mg tablet RxNorm: 372664 1 Tablet(s) PO QD 09/19/201209/13 Inactive Protonix 40 mg tablet,delayed release RxNorm: 674911 1 Tablet(s ) PO QD 09/19/2012 09/18/2012 Inactive simvastatin 40 mg tablet RxNorm: 872809 1 Tablet(s) PO QD 09/19/2012 02/23/2013 Inactive Protonix 40 mg tablet,delayed release RxNorm: 289326 1 Tablet(s ) PO QD 09/19/2012 09/13/2013 Inactive Ultram 50 mg tablet RxNorm: 541415 1-2 Tablet(s) PO QID as need ed for pain 09/19/2012 02/26/2017 Inactive propranolol 80 mg tablet RxNorm: 479262 1 Tablet(s) PO QHS 09/19/19 13 09/18/2012 Inactive Cymbalta 60 mg capsule,delayed release RxNorm: 221420 1 Capsule (s) PO QD 09/19/2012 09/18/2012 Inactive Cymbalta 60 mg capsule,delayed release RxNorm: 268887 1 Capsule (s) PO QD 09/19/2012 03/17/2013 Inactive propranolol 80 mg tablet RxNorm: 604771 1 Tablet(s) PO QHS 09/19/19 13 02/23/2013 Inactive hydrocodone-acetaminophen 10 mg-325 mg tablet RxNorm: 986405 2 1-2 Tablet(s) PO QID 07/25/2012 02/23/2013 Inactive Ambien 10 mg tablet RxNorm: 356003 1 Tablet(s) PO QHS as needed for sleep 07/10/2012 01/27/2013 Inactive propranolol 80 mg tablet RxNorm: 410358 1 Tablet(s) PO QHS 05/13/20 12 09/18/2012 Inactive hydrocodone-acetaminophen 10 mg-325 mg tablet RxNorm: 365766 2 1-2 Tablet(s) PO QID 05/02/2012 No Stop Date Active Restoril 15 mg Cap RxNorm: 063274 1-2 Capsule(s) PO QHS 05/02/2012 Inactive propranolol 80 mg tablet RxNorm: 290090 1 Tablet(s) PO QHS 05/02/20 12 05/12/2012 Inactive Chantix Starting Month Box 0.5 mg (11)-1 mg (42) Tabs in a Dose Pack RxNorm: 895799 Tablet(s) PO As Directed 04/01/2012 01/27/2013 Inactive simvastatin 40 mg tablet RxNorm: 994578 1 Tablet(s) PO QD 03/28/2012 09/18/2012 Inactive simvastatin 40 mg Tab RxNorm: 319920 1 Tablet(s) PO QD 03/22/201207/2012 Inactive Effient 10 mg Tab RxNorm: 880216 1 Tablet(s) PO QD 03/22/2012 012 Inactive Prilosec 40 mg Capsule, delayed release RxNorm: 941740 1 Capsul e(s) PO QD 03/22/2012 09/18/2012 Inactive Prilosec 40 mg Capsule, delayed release RxNorm: 471398 1 Capsul e(s) PO QD 03/19/2012 03/21/2012 Inactive Cymbalta 60 mg capsule,delayed release RxNorm: 323128 1 Capsule (s) PO QD 03/04/2012 08/30/2012 Inactive hydrocodone-acetaminophen 10 mg-325 mg Tab RxNorm: 9329017 1-2 T ablet(s) PO QID 01/23/2012 No Stop Date Active Cymbalta 60 mg Capsule, delayed release RxNorm: 866423 1 Capsul e(s) PO QD 01/23/2012 03/03/2012 Inactive Cipro 500 mg Tab RxNorm: 120429 1 Tablet(s) PO BID 12/20/2011 012 Inactive Cymbalta 60 mg Capsule, delayed release RxNorm: 500623 1 Capsul e(s) PO QD 12/13/2011 01/22/2012 Inactive nortriptyline 75 mg Cap RxNorm: 352691 1 Capsule(s) PO QHS 11/29/1904/02/2012 Inactive Cymbalta 60 mg Cap RxNorm: 849962 1 Capsule(s) PO QD 10/24/201112/11 Inactive propranolol 80 mg Tab RxNorm: 134876 1 Tablet(s) PO QHS 10/24/2011 Inactive hydrocodone-acetaminophen 10 mg-325 mg Tab RxNorm: 2047558 1-2 T ablet(s) PO QID 09/29/2011 No Stop Date Active hydrocodone-acetaminophen 10 mg-325 mg Tab RxNorm: 9505010 1-2 T ablet(s) PO QID 07/25/2011 No Stop Date Active hydrocodone-acetaminophen 10 mg-325 mg Tab RxNorm: 4453918 1-2 T ablet(s) PO QID 02/14/2011 No Stop Date Active Prilosec 40 mg Cap RxNorm: 120067 1 Capsule(s) PO 01/03/2011 01/13/20 19 Inactive nortriptyline 75 mg Cap RxNorm: 087313 1 Capsule(s) PO QHS 01/04/20 11 07/01/2011 Inactive Neurontin 600 mg Tab RxNorm: 761355 1 Tablet(s) PO QHS 12/08/201011/2011 Inactive hydrocodone-acetaminophen 5 mg-500 mg Tab RxNorm: 646547 2 Tablet(s) PO Q4-6H prn 10/20/2010 01/08/2011 Inactive Diltzac ER 240 mg Cap RxNorm: 059289 1 Capsule(s) PO QD 07/14/2010 Inactive Nortriptyline 75 mg Cap RxNorm: 644453 1 Capsule(s) PO QHS 05/09/20 10 01/12/2019 Inactive Neurontin 600 mg Tab RxNorm: 472176 1 Tablet(s) PO QD 03/17/201012/17 Inactive Nortriptyline 75 mg Cap RxNorm: 745758 1 Capsule(s) PO 01/12/2010 Inactive Nortriptyline 50 mg Cap RxNorm: 387225 1 Capsule(s) PO QHS 01/13/20 10 01/11/2010 Inactive Diltzac ER 240 mg Cap RxNorm: 827388 1 Capsule(s) PO QD 12/06/2009 Inactive aspirin 81 mg Tab RxNorm: 569727 1 Tablet(s) PO QD No Start Date Active Vitamin D3 2,000 unit tablet RxNorm: 032551 1 Tablet(s) PO QD No Star t Date Active vlppahmbl-pholnznne-njqbzq complex no.233 oral RxNorm: oral No Start Date Active primidone 50 mg tablet RxNorm: 692603 2 Tablet(s) PO BID No Start Date Active Prilosec 40 mg Capsule, delayed release RxNorm: 717047 1 Capsul e(s) PO QD No Start Date 03/18/2012 Inactive Prilosec 20 mg Cap RxNorm: 863426 1 Capsule(s) PO QHS No Start Date 0 01/02/2011 Inactive primidone 50 mg tablet RxNorm: 380679 1/2 Tablet(s) PO QHS for 1week then go full tab if needed No Start Date 05/01/2017 Inactive ProAir HFA 90 mcg/actuation aerosol inhaler RxNorm: 811052 2 Puff(s) INH Q4H as needed No Start Date 10/29/2017 Inactive clonazepam 0.5 mg tablet RxNorm: 592598 1/2 Tablet(s) PO BID No Sta rt Date 02/12/2017 Inactive Pepcid AC 10 mg Tab RxNorm: 960850 1 Tablet(s) PO QAM No Start Date 0 02/19/2011 Inactive Coreg Oral RxNorm: Oral No Start Date 01/12/2014 Inactive primidone 50 mg tablet RxNorm: 905866 1/2 Tablet(s) PO QD for 7 days then increase to 1 tablet at bedtime No Start Date 01/08/2017 Inactive Medrol (Jose) 4 mg tablets in a dose pack RxNorm: 325097 Tablet(s) PO As Directed No Start Date 01/12/2016 Inactive Plavix 75 mg tablet RxNorm: 357351 1 Tablet(s) PO QD No Start Date Inactive cyclobenzaprine 10 mg tablet RxNorm: 986395 1 Tablet(s) PO TID as needed for spasm No Start Date 07/03/2013 Inactive Bevespi Aerosphere 9 mcg-4.8 mcg HFA aerosol inhaler RxNorm: 7517899 2 Puff(s) INH BID No Start Date 02/18/2019 Inactive tramadol 50 mg tablet RxNorm: 753483 1-2 Tablet(s) PO TID as ne eded for pain No Start Date 01/12/2019 Inactive clonazepam 1 mg tablet RxNorm: 812320 1 Tablet(s) PO QAM No Start D ate 09/18/2018 Inactive hydrocodone-acetaminophen 5 mg-500 mg Tab RxNorm: 799628 2 Tablet(s) PO Q4-6H prn No Start Date 10/19/2010 Inactive lisinopril 20 mg Tab RxNorm: 719484 1/2 Tablet(s) PO QD No Start Da te 03/12/2011 Inactive Lyrica 75 mg capsule RxNorm: 838411 1 Capsule(s) PO QHS No Start Da te 10/08/2019 Inactive Protonix 40 mg tablet,delayed release RxNorm: 286570 1 Tablet(s ) PO QD No Start Date 06/07/2014 Inactive Lipitor Oral RxNorm: Oral No Start Date 01/12/2014 Inactive primidone 50 mg tablet RxNorm: 812648 2 Tablet(s) PO QAM and 1 tablet at HS No Start Date 02/17/2019 Inactive hydrocodone-acetaminophen 10 mg-325 mg Tab RxNorm: 5499204 1-2 T ablet(s) PO QID No Start Date 02/13/2011 Inactive Ultram 50 mg tablet RxNorm: 331931 1-2 Tablet(s) PO QID as need ed for pain No Start Date 09/18/2012 Inactive Effient 10 mg Tab RxNorm: 595279 1 Tablet(s) PO QD No Start Date 01/2012 Inactive Bevespi Aerosphere 9 mcg-4.8 mcg HFA aerosol inhaler RxNorm: 7217591 2 Puff(s) INH BID No Start Date 10/29/2017 Inactive Neurontin Oral RxNorm: Oral No Start Date 01/12/2010 Inactive primidone 50 mg tablet RxNorm: 013910 1 Tablet(s) PO QD No Start Da te 01/12/2019 Inactive Chantix Starting Month Box 0.5 mg (11)-1 mg (42) Tabs in a Dose Pack RxNorm: 079140 Tablet(s) PO No Start Date 03/31/2012 Inactive atenolol 25 mg Tab RxNorm: 763641 1 Tablet(s) PO QD No Start Date 02/2012 Inactive Neurontin 600 mg Tab RxNorm: 224860 1 Tablet(s) PO QD No Start Date 0 03/16/2010 Inactive Nucynta 50 mg tablet RxNorm: 640824 1-2 Tablet(s) PO Q6H as nee ded for pain No Start Date 12/31/2012 Inactive simvastatin 40 mg Tab RxNorm: 002360 1 Tablet(s) PO QD No Start Date 03/21/2012 Inactive Medication Administered No Medication Administered data Immunizations Vaccine Codes Date Status Influenza CVX: 135 07/04/2017 Complete Results Observation Observation Code Item Item Code Result Date S ervice Location COMPLETE BLOOD COUNT [id number] WBC 4.9 10e9/L 09/30/19 20 Unknown COMPLETE BLOOD COUNT [id number] RBC 4.65 10e12/L 2019 Unknown COMPLETE BLOOD COUNT [id number] HEMOGLOBIN 13.8 g/dL 09/30/19 20 Unknown COMPLETE BLOOD COUNT [id number] HEMATOCRIT 42.3 % 09/30/19 20 Unknown COMPLETE BLOOD COUNT [id number] MCV 91.0 fL 0 Unknown COMPLETE BLOOD COUNT [id number] MCH 29.7 pg 0 Unknown COMPLETE BLOOD COUNT [id number] MCHC 32.6 g/dL 0 Unknown COMPLETE BLOOD COUNT 7124869 PLATELET COUNT 230 10e9/L Unknown COMPLETE BLOOD COUNT 0737769 Mean Plt Volume 9.9 fL Unknown COMPLETE BLOOD COUNT [id number] Neut Auto 52.5 % 0 Unknown COMPLETE BLOOD COUNT [id number] Lymph Auto 30.8 % 09/30/19 20 Unknown COMPLETE BLOOD COUNT [id number] [place] Auto 11.2 % 0 Unknown COMPLETE BLOOD COUNT [id number] RDW 13.5 % 0 Unknown COMPLETE BLOOD COUNT [id number] Eos Auto 5.1 % 0 Unknown COMPLETE BLOOD COUNT 1430849 Baso Auto 0.4 % 0 Unknown COMPLETE BLOOD COUNT [id number] Neutrophil Abs 2.57 10e9/L Unknown COMPLETE BLOOD COUNT [id number] Lymphocyte Abs 1.51 10e9/L Unknown COMPLETE BLOOD COUNT [id number] Monocyte Abs 0.55 10e9/L 09/17 Unknown COMPLETE BLOOD COUNT [id number] Eosinophil Abs 0.25 10e9/L Unknown COMPLETE BLOOD COUNT [id number] Basophil Abs 0.02 10e9/L 09/17 Unknown COMPLETE BLOOD COUNT [id number] RDW-SD 43.9 fL 0 Unknown GFR CALC 0864951 GFR Non Afr Amr >60 mL/min 09/30/2019 Un known GFR CALC [id number] GFR Afr Amr >60 mL/min 09/30/2019 Unknow n THYROID STIMULATING HORMONE 72174 TSH 1.129 uIU/mL 09/30/2019 Unknown PSA EQUIMOLAR BARBIE 51816 PSA Total 0.77 ng/mL 0 Unknown [facility] 97111 Cholesterol 192 mg/dL 09/30/2019 Unkno wn [facility] 26970 Triglyceride 86 mg/dL 09/30/2019 Unkn own [facility] 96406 HDL CHOLESTEROL 64 mg/dL 09/30/2019 U nknown L[facility] 23098 Chol/HDL Ratio 3.00 ratio 09/30/2019 U nknown [facility] 13930 NON-HDL Chol 128 mg/dL 09/30/2019 Unkn own L[facility] GROUP 87542 LDL Cholesterol 111 mg/dL 09/30/2019 U nknown COMPREHENSIVE METABOLIC 97591 AST 17 U/L 2019 Unknown COMPREHENSIVE METABOLIC 31657 ALT 10 U/L 2019 Unknown COMPREHENSIVE METABOLIC 95734 BUN 13 mg/dL 2019 Unknown COMPREHENSIVE METABOLIC 67670 ALBUMIN 4.3 g/dL 2019 Unknown COMPREHENSIVE METABOLIC 13376 CHLORIDE 102 mmol/L 09/30 Unknown COMPREHENSIVE METABOLIC 17772 Bili Total 0.6 mg/dL 09/30 Unknown COMPREHENSIVE METABOLIC 21322 ALK PHOS 91 U/L 2019 Unknown COMPREHENSIVE METABOLIC 60149 SODIUM 138 mmol/L 09/30 Unknown COMPREHENSIVE METABOLIC 64657 CREATININE 1.09 mg/dL 09/17 Unknown COMPREHENSIVE METABOLIC 91705 CALCIUM 9.0 mg/dL 2019 Unknown COMPREHENSIVE METABOLIC 77620 POTASSIUM 4.5 mmol/L 09/30 Unknown COMPREHENSIVE METABOLIC 39440 Total Protein 6.8 g/dL Unknown COMPREHENSIVE METABOLIC 61020 Glucose 91 mg/dL 2019 Unknown COMPREHENSIVE METABOLIC 38067 Bicarbonate 28 mmol/L 09/17 Unknown COMPREHENSIVE METABOLIC 56565 AGAP 8 mmol/L 2019 Unknown COMPLETE BLOOD COUNT [id number] WBC 4.9 10e9/L 09/04/20 18 Unknown COMPLETE BLOOD COUNT [id number] RBC 4.42 10e12/L 2017 Unknown COMPLETE BLOOD COUNT 4765064 HEMOGLOBIN 13.4 g/dL 09/04/20 18 Unknown COMPLETE BLOOD COUNT [id number] HEMATOCRIT 40.5 % 09/04/20 18 Unknown COMPLETE BLOOD COUNT 1103603 MCV 91.6 fL 8 Unknown COMPLETE BLOOD COUNT 7319202 MCH 30.3 pg 8 Unknown COMPLETE BLOOD COUNT 8652952 MCHC 33.1 g/dL 8 Unknown COMPLETE BLOOD COUNT [id number] PLATELET COUNT 224 10e9/L Unknown COMPLETE BLOOD COUNT 5925400 Mean Plt Volume 9.9 fL Unknown COMPLETE BLOOD COUNT 8283064 Neut Auto 60.8 % 8 Unknown COMPLETE BLOOD COUNT [id number] Lymph Auto 26.8 % 09/04/20 18 Unknown COMPLETE BLOOD COUNT 3087080 [place] Auto 10.4 % 8 Unknown COMPLETE BLOOD COUNT 8044584 RDW 12.8 % 8 Unknown COMPLETE BLOOD COUNT 9574752 Eos Auto 1.6 % 8 Unknown COMPLETE BLOOD COUNT 0008177 Baso Auto 0.4 % 8 Unknown COMPLETE BLOOD COUNT 4047310 Neutrophil Abs 2.98 10e9/L Unknown COMPLETE BLOOD COUNT [id number] Lymphocyte Abs 1.31 10e9/L Unknown COMPLETE BLOOD COUNT [id number] Monocyte Abs 0.51 10e9/L 08/17 Unknown COMPLETE BLOOD COUNT [id number] Eosinophil Abs 0.08 10e9/L Unknown COMPLETE BLOOD COUNT 3795584 RDW-SD 41.6 fL 8 Unknown COMPLETE BLOOD COUNT [id number] Basophil Abs 0.02 10e9/L 08/17 Unknown COMPREHENSIVE METABOLIC 84348 AST 16 U/L 2017 Unknown COMPREHENSIVE METABOLIC 91689 ALT 8 U/L 2017 Unknown COMPREHENSIVE METABOLIC 43416 BUN 12 mg/dL 2017 Unknown COMPREHENSIVE METABOLIC 75531 ALBUMIN 4.4 g/dL 2017 Unknown COMPREHENSIVE METABOLIC 76888 CHLORIDE 107 mmol/L 09/04 Unknown COMPREHENSIVE METABOLIC 93062 Bili Total 1.0 mg/dL 09/04 Unknown COMPREHENSIVE METABOLIC 22700 ALK PHOS 58 U/L 2017 Unknown COMPREHENSIVE METABOLIC 73442 SODIUM 142 mmol/L 09/04 Unknown COMPREHENSIVE METABOLIC 60091 CREATININE 0.97 mg/dL 08/17 Unknown COMPREHENSIVE METABOLIC 31523 CALCIUM 9.2 mg/dL 2017 Unknown COMPREHENSIVE METABOLIC 36091 POTASSIUM 4.6 mmol/L 09/04 Unknown COMPREHENSIVE METABOLIC 05293 Total Protein 6.5 g/dL Unknown COMPREHENSIVE METABOLIC 40073 Glucose 96 mg/dL 2017 Unknown COMPREHENSIVE METABOLIC 21506 Bicarbonate 29 mmol/L 08/17 Unknown COMPREHENSIVE METABOLIC 67234 AGAP 6 mmol/L 2017 Unknown LIPID GROUP 94131 Cholesterol 182 mg/dL 09/04/2018 Unkno wn LIP[facility] GROUP 80860 Triglyceride 84 mg/dL 09/04/2018 Unkn own L[facility] GROUP 85142 HDL CHOLESTEROL 76 mg/dL 09/04/2018 U nknown LIP[facility] GROUP 34440 Chol/HDL Ratio 2.39 ratio 09/04/2018 U nknown LIP[facility] GROUP 60144 NON-HDL Chol 106 mg/dL 09/04/2018 Unkn own LIP[facility] GROUP 66363 LDL Cholesterol 89 mg/dL 09/04/2018 U nknown GFR CALC 3872260 GFR Non Afr Amr >60 mL/min 09/04/2018 Un known GFR CALC 2076068 GFR Afr Amr >60 mL/min 09/04/2018 Unknow n THYROID STIMULATING HORMONE 03796 TSH 0.713 uIU/mL 09/04/2018 Unknown PSA EQUIMOLAR BARBIE 30579 PSA Total 0.66 ng/mL 8 Unknown A FOOD C P [id number] [place] Cl Class 0 11/17/2017 Unknown A FOOD C P [id number] [place] Ct <0.35 kU/L 11/17/2017 Unknow n A FOOD C P 6390212 [place] Cl Class 0 11/17/2017 Unkn own A FOOD C P 1397629 [place] <0.35 kU/L 11/17/2017 Unk nown A FOOD C P 8049323 Egg White Cl Class 0 11/17/2017 Unkno wn A FOOD C P 8847601 Egg White Ct <0.35 kU/L 11/17/2017 Unkn own A FOOD C P 8571722 Egg Yolk Cl Class 0 11/17/2017 Unknow n A FOOD C P 5499639 Egg Yolk Ct <0.35 kU/L 11/17/2017 Unkno wn A FOOD C P 1057068 Cow Milk Cl Class 0 11/17/2017 Unknow n A FOOD C P 3299703 Cow Milk Ct <0.35 kU/L 11/17/2017 Unkno wn A FOOD C P 2583624 Peanut Cl Class 0 11/17/2017 Unknown A FOOD C P [id number] Peanut Ct <0.35 kU/L 11/17/2017 Unknown A FOOD C P 8144598 Shrimp Cl Class 0 11/17/2017 Unknown A FOOD C P 6097773 [place]rimp Ct <0.35 kU/L 11/17/2017 Unknown A FOOD C P 6870628 [place] Cl Class 0 11/17/2017 Unknown A FOOD C P 7659093 [place] Ct <0.35 kU/L 11/17/2017 Unknow n A FOOD C P 1459147 Wheat Cl Class 0 11/17/2017 Unknown A FOOD C P 9620559 Wheat Ct <0.35 kU/L 11/17/2017 Unknown A FOOD C P 4345147 Potato Cl Class 0 11/17/2017 Unknown A FOOD C P [id number] Potato Ct <0.35 kU/L 11/17/2017 Unknown A FOOD C P 2509919 Beef Cl Class 2 11/17/2017 Unknown A FOOD C P 7013782 Beef Ct 0.88 kU/L 11/17/2017 Unknown A FOOD C P [id number] [place] Cl Class 0 11/17/2017 Unknown A FOOD C P [id number] [place] Ct <0.35 kU/L 11/17/2017 Unknown A FOOD C P 1592896 Pork Cl Class 0 11/17/2017 Unknown A FOOD C P [id number] Pork Ct <0.35 kU/L 11/17/2017 Unknown A FOOD C P [id number] [place] Cl Class 0 11/17/2017 Unknown A FOOD C P [id number] [place] Ct <0.35 kU/L 11/17/2017 Unknown A FOOD C P 7359550 [place] Cl Class 0 11/17/2017 Unkn own A FOOD C P 9220139 [place] Ct <0.35 kU/L 11/17/2017 Unk nown A FOOD C P [id number] [place] Cl Class 0 11/17/2017 Unknown A FOOD C P 4820447 [place] Ct <0.35 kU/L 11/17/2017 Unknown A FOOD C P 2266525 Tuna Cl Class 0 11/17/2017 Unknown A FOOD C P 1700481 Tuna Ct <0.35 kU/L 11/17/2017 Unknown A FOOD C P 5771949 [place] [facility] Class 0 11/17/2017 Unknown A FOOD C P 1299583 [place] <0.35 kU/L 11/17/2017 Unknown A FOOD C P 5688352 [place] Cl Class 0 11/17/2017 Unknown A FOOD C P 6864669 [place] Ct <0.35 kU/L 11/17/2017 Unknown A FOOD C P 6242432 Oat Cl Class 0 11/17/2017 Unknown A FOOD C P 5032042 Oat Ct <0.35 kU/L 11/17/2017 Unknown A FOOD C P 1450160 [place] Cl Class 0 11/17/2017 Unknown A FOOD C P 2286540 [place] Ct <0.35 kU/L 11/17/2017 Unknown A FOOD C P 1195588 Chicken Meat CL Class 0 11/17/2017 Un known A FOOD C P 2543747 Chicken Meat Ct <0.35 kU/L 11/17/2017 U nknown A FOOD C P 7529718 [place] Cl Class 0 11/17/2017 Unknown A FOOD C P 8311723 [place] Ct <0.35 kU/L 11/17/2017 Unknown A FOOD C P [id number] Pec[place] Meat Cl Class 0 11/17/2017 Unkn own A FOOD C P 4770460 [place]ec[place] Meat Ct <0.35 kU/L 11/17/2017 Unk nown A NUTS PNL 4467366 Peanut Cl Class 0 11/17/2017 Unknown A NUTS PNL 1900741 Peanut Ct <0.35 kU/L 11/17/2017 Unknown A NUTS PNL 1202859 [place] Meat Cl Class 0 11/17/2017 Unk nown A NUTS PNL 3699354 [place] [facility] <0.35 kU/L 11/17/2017 Un known A NUTS PNL 9924071 [place] Cl Class 0 11/17/2017 Unkn own A NUTS PNL 5546429 [place] Ct <0.35 kU/L 11/17/2017 Unk nown A NUTS PNL 5685562 [place] Cl Class 0 11/17/2017 Unknown A NUTS PNL 9626531 [place] Ct <0.35 kU/L 11/17/2017 Unknown A NUTS PNL 8922796 [place] Cl Class 0 11/17/2017 Unknow n A NUTS PNL 7215394 [place] Ct <0.35 kU/L 11/17/2017 Unkno wn A NUTS PNL 1730110 [place] Cl Class 0 11/17/2017 Unkno wn A NUTS PNL 1485260 [place] Ct <0.35 kU/L 11/17/2017 Unkn own A NUTS PNL 5590730 [place] Cl Class 0 11/17/2017 Unknown A NUTS PNL 5015398 [place] Ct <0.35 kU/L 11/17/2017 Unknown A NUTS PNL 8257137 [place] Cl Class 0 11/17/2017 Unkno wn A NUTS PNL 3318428 [place] Ct <0.35 kU/L 11/17/2017 Unkn own A NUTS PNL 8644150 Allergen Interp See Note 11/17/2017 Un known A FRT/VG P [id number] [place] Cl Class 0 11/17/2017 Unkn own A FRT/VG P [id number] [place] <0.35 kU/L 11/17/2017 Unk nown A FRT/VG P 7494000 [place] Cl Class 0 11/17/2017 Unknown A FRT/VG P [id number] [place] Ct <0.35 kU/L 11/17/2017 Unknown A FRT/VG P [id number] [place] Cl Class 0 11/17/2017 Unkn own A FRT/VG P [id number] [place] Ct <0.35 kU/L 11/17/2017 Unk nown A FRT/VG P 5750576 [place] Cl Class 0 11/17/2017 Unknown A FRT/VG P 1366148 [place] Ct <0.35 kU/L 11/17/2017 Unknown A FRT/VG P [id number] [place] Cl Class 0 11/17/2017 Unknown A FRT/VG P [id number] [place] Ct <0.35 kU/L 11/17/2017 Unknown A FRT/VG P 2497662 [place] Cl Class 1 11/17/2017 Unknown A FRT/VG P 1261142 [place] Ct 0.48 kU/L 11/17/2017 Unknown A FRT/VG P 8399878 [place] Cl Class 0 11/17/2017 Unk nown A FRT/VG P 9865502 [place] [facility] <0.35 kU/L 11/17/2017 Un known A FRT/VG P 2896167 [place] Cl Class 0 11/17/2017 Unk nown A FRT/VG P 4452867 [place] Ct <0.35 kU/L 11/17/2017 Un known A FRT/VG P 3058100 [place] Cl Class 0 11/17/2017 Unknown A FRT/VG P 9598799 [place] Ct <0.35 kU/L 11/17/2017 Unknown A FRT/VG P 7351787 [place] Cl Class 0 11/17/2017 Unknown A FRT/VG P 5903200 [place] Ct <0.35 kU/L 11/17/2017 Unknown A FRT/VG P 6605705 [place] Cl Class 0 11/17/2017 Unkn own A FRT/VG P 9651110 [place] Ct <0.35 kU/L 11/17/2017 Unk nown A FRT/VG P [id number] Swt [place] Cl Class 0 11/17/2017 Unkn own A FRT/VG P 8352920 Swt [place] Ct <0.35 kU/L 11/17/2017 Unk nown THYROID STIMULATING HORMONE 87693 TSH 1.371 uIU/mL 09/03/2017 Unknown FREE T4 47775 T4 Free 1.26 ng/dL 09/03/2017 Unknown ASSAY TRIIODOTHYRONINE (T3) 02291 T3 Total 0.9 ng/mL Unknown COMPLETE BLOOD COUNT 2885685 WBC 5.9 10e9/L 07/31/20 17 Unknown COMPLETE BLOOD COUNT [id number] RBC 4.64 10e12/L 2016 Unknown COMPLETE BLOOD COUNT 0456419 HEMOGLOBIN 14.2 g/dL 07/31/20 17 Unknown COMPLETE BLOOD COUNT 3534297 HEMATOCRIT 42.1 % 07/31/20 17 Unknown COMPLETE BLOOD COUNT 9387104 MCV 90.7 fL 7 Unknown COMPLETE BLOOD COUNT 9032098 MCH 30.6 pg 7 Unknown COMPLETE BLOOD COUNT 9983822 MCHC 33.7 g/dL 7 Unknown COMPLETE BLOOD COUNT 4275059 PLATELET COUNT 195 10e9/L Unknown COMPLETE BLOOD COUNT 9676651 Mean Plt Volume 10.0 fL Unknown COMPLETE BLOOD COUNT 3917536 Neut Auto 47.5 % 7 Unknown COMPLETE BLOOD COUNT 4829515 Lymph Auto 37.4 % 07/31/20 17 Unknown COMPLETE BLOOD COUNT 5651741 [place] Auto 11.7 % 7 Unknown COMPLETE BLOOD COUNT 8876920 Eos Auto 3.2 % 7 Unknown COMPLETE BLOOD COUNT 4229119 RDW 12.8 % 7 Unknown COMPLETE BLOOD COUNT 9914005 Baso Auto 0.2 % 7 Unknown COMPLETE BLOOD COUNT 1121201 Neutrophil Abs 2.80 10e9/L Unknown COMPLETE BLOOD COUNT 0364951 Lymphocyte Abs 2.21 10e9/L Unknown COMPLETE BLOOD COUNT [id number] Monocyte Abs 0.69 10e9/L 07/18 Unknown COMPLETE BLOOD COUNT 4036409 Eosinophil Abs 0.19 10e9/L Unknown COMPLETE BLOOD COUNT 3624252 RDW-SD 41.6 fL 201 7 Unknown COMPLETE BLOOD COUNT 0077489 Basophil Abs 0.01 10e9/L 07/18 Unknown LIPID GROUP 67379 Cholesterol 186 mg/dL 07/31/2017 Unkno wn LIPID GROUP 52631 Triglyceride 129 mg/dL 07/31/2017 Unkn own LIPID GROUP 11984 HDL CHOLESTEROL 79 mg/dL 07/31/2017 U nknown LIPID GROUP 59612 Chol/HDL Ratio 2.35 ratio 07/31/2017 U nknown LIPID GROUP 92191 NON-HDL Chol 107 mg/dL 07/31/2017 Unkn own LIPID GROUP 71958 LDL Cholesterol 81 mg/dL 07/31/2017 U nknown GFR CALC 8801304 GFR Non Afr Amr >60 mL/min 07/31/2017 Un known GFR CALC 1332567 GFR Afr Amr >60 mL/min 07/31/2017 Unknow n COMPREHENSIVE METABOLIC 47885 AST 19 U/L 2016 Unknown COMPREHENSIVE METABOLIC 89297 ALT 12 U/L 2016 Unknown COMPREHENSIVE METABOLIC 52221 BUN 15 mg/dL 2016 Unknown COMPREHENSIVE METABOLIC 60034 ALBUMIN 4.4 g/dL 2016 Unknown COMPREHENSIVE METABOLIC 33973 CHLORIDE 102 mmol/L 07/31 Unknown COMPREHENSIVE METABOLIC 85768 Bili Total 0.9 mg/dL 07/31 Unknown COMPREHENSIVE METABOLIC 68992 ALK PHOS 53 U/L 2016 Unknown COMPREHENSIVE METABOLIC 64972 SODIUM 138 mmol/L 07/31 Unknown COMPREHENSIVE METABOLIC 44353 CREATININE 1.06 mg/dL 07/18 Unknown COMPREHENSIVE METABOLIC 87593 CALCIUM 9.3 mg/dL 2016 Unknown COMPREHENSIVE METABOLIC 29819 POTASSIUM 4.0 mmol/L 07/31 Unknown COMPREHENSIVE METABOLIC 26647 Total Protein 6.8 g/dL Unknown COMPREHENSIVE METABOLIC 09001 Glucose 86 mg/dL 2016 Unknown COMPREHENSIVE METABOLIC 63394 Bicarbonate 28 mmol/L 07/18 Unknown COMPREHENSIVE METABOLIC 08295 AGAP 8 mmol/L 2016 Unknown COMPREHENSIVE METABOLIC 65089 AST 18 U/L 2015 Unknown COMPREHENSIVE METABOLIC 27753 ALT 9 U/L 2015 Unknown COMPREHENSIVE METABOLIC 02192 BUN 11 mg/dL 2015 Unknown COMPREHENSIVE METABOLIC 26842 ALBUMIN 4.2 g/dL 2015 Unknown COMPREHENSIVE METABOLIC 37405 CHLORIDE 104 mmol/L 05/19 Unknown COMPREHENSIVE METABOLIC 73841 Bili Total 1.2 mg/dL 05/19 Unknown COMPREHENSIVE METABOLIC 10605 ALK PHOS 54 U/L 2015 Unknown COMPREHENSIVE METABOLIC 57916 SODIUM 140 mmol/L 05/19 Unknown COMPREHENSIVE METABOLIC 17197 CREATININE 1.03 mg/dL 10/2015 Unknown COMPREHENSIVE METABOLIC 89550 CALCIUM 9.3 mg/dL 2015 Unknown COMPREHENSIVE METABOLIC 15101 POTASSIUM 4.9 mmol/L 05/19 Unknown COMPREHENSIVE METABOLIC 04344 Total Protein 6.7 g/dL Unknown COMPREHENSIVE METABOLIC 45205 Glucose 92 mg/dL 2015 Unknown COMPREHENSIVE METABOLIC 61579 Bicarbonate 28 mmol/L 10/2015 Unknown COMPREHENSIVE METABOLIC 21904 AGAP 8 mmol/L 2015 Unknown THYROID STIMULATING HORMONE 12610 TSH 1.545 uIU/mL 05/19/2016 Unknown GFR CALC 7296086 GFR Non Afr Amr >60 mL/min 05/19/2016 Un known GFR CALC 2750081 GFR Afr Amr >60 mL/min 05/19/2016 Unknow n VITAMIN B 12 39722 VITAMIN B12 298 pg/mL 05/19/2016 Unkn own COMPLETE BLOOD COUNT [id number] WBC 5.2 10e9/L 05/19/20 16 Unknown COMPLETE BLOOD COUNT [id number] RBC 4.34 10e12/L 2015 Unknown COMPLETE BLOOD COUNT 2266689 HEMOGLOBIN 12.9 g/dL 05/19/20 16 Unknown COMPLETE BLOOD COUNT 1756662 HEMATOCRIT 38.9 % 05/19/20 16 Unknown COMPLETE BLOOD COUNT 8953650 MCV 89.6 fL 6 Unknown COMPLETE BLOOD COUNT [id number] MCH 29.7 pg 6 Unknown COMPLETE BLOOD COUNT 4250923 MCHC 33.2 g/dL 6 Unknown COMPLETE BLOOD COUNT 3545128 PLATELET COUNT 200 10e9/L 10/2015 Unknown COMPLETE BLOOD COUNT 7906990 Mean Plt Volume 10.1 fL 10/2015 Unknown COMPLETE BLOOD COUNT 8989199 Neut Auto 45.4 % 6 Unknown COMPLETE BLOOD COUNT 5640091 Lymph Auto 35.6 % 05/19/20 16 Unknown COMPLETE BLOOD COUNT 8335694 [place] Auto 11.9 % 6 Unknown COMPLETE BLOOD COUNT 6229648 Eos Auto 6.7 % 6 Unknown COMPLETE BLOOD COUNT 9780257 RDW 12.7 % 6 Unknown COMPLETE BLOOD COUNT 7989922 Baso Auto 0.4 % 6 Unknown COMPLETE BLOOD COUNT 7884346 Neutrophil Abs 2.36 10e9/L Unknown COMPLETE BLOOD COUNT 5259619 Lymphocyte Abs 1.85 10e9/L Unknown COMPLETE BLOOD COUNT 8390835 Monocyte Abs 0.62 10e9/L 10/2015 Unknown COMPLETE BLOOD COUNT 3819097 Eosinophil Abs 0.35 10e9/L Unknown COMPLETE BLOOD COUNT 9003417 RDW-SD 40.6 fL 6 Unknown COMPLETE BLOOD COUNT [id number] Basophil Abs 0.02 10e9/L 10/2015 Unknown LIPID GROUP 88359 Cholesterol 197 mg/dL 05/19/2016 Unkno wn LIPID GROUP 44316 Triglyceride 92 mg/dL 05/19/2016 Unkn own LIPID GROUP 29274 HDL CHOLESTEROL 58 mg/dL 05/19/2016 U nknown LIPID GROUP 61289 Chol/HDL Ratio 3.40 ratio 05/19/2016 U nknown LIPID GROUP 79818 NON-HDL Chol 139 mg/dL 05/19/2016 Unkn own LIPID GROUP 28201 LDL Cholesterol 121 mg/dL 05/19/2016 U nknown FREE T4 60863 T4 Free 1.19 ng/dL 05/19/2016 Unknown COMPREHENSIVE METABOLIC 87238 AST 19 U/L 2014 Unknown COMPREHENSIVE METABOLIC 97404 ALT 10 IU/L 2014 Unknown COMPREHENSIVE METABOLIC 06497 BUN 20 MG/DL 2014 Unknown COMPREHENSIVE METABOLIC 59050 ALBUMIN 4.4 GM/DL 2014 Unknown COMPREHENSIVE METABOLIC 74403 CHLORIDE 104 MMOL/L 04/05 Unknown COMPREHENSIVE METABOLIC 46491 BILI TOT 2.2 MG/DL 2014 Unknown COMPREHENSIVE METABOLIC 99255 ALK PHOS 55 U/L 2014 Unknown COMPREHENSIVE METABOLIC 67115 SODIUM 138 MMOL/L 04/05 Unknown COMPREHENSIVE METABOLIC 55257 CREATININE 1.04 MG/DL 03/18 Unknown COMPREHENSIVE METABOLIC 53890 CALCIUM 9.3 MG/DL 2014 Unknown COMPREHENSIVE METABOLIC 03590 POTASSIUM 4.5 MMOL/L 04/05 Unknown COMPREHENSIVE METABOLIC 71736 PROT TOT 6.7 GM/DL 2014 Unknown COMPREHENSIVE METABOLIC 64144 Glucose 77 MG/DL 2014 Unknown COMPREHENSIVE METABOLIC 29613 BICARB 25 MMOL/L 2014 Unknown COMPREHENSIVE METABOLIC 65381 ANION GAP 9 MEQ/L 2014 Unknown GFR CALC 2425987 GFR AA >60 ML/MIN 04/05/2015 Unknown GFR CALC 3672793 GFR NON-AA >60 ML/MIN 04/05/2015 Unknown LIPID GROUP 93293 HDL TEST 60 MG/DL 04/05/2015 Unknown LIPID GROUP 73772 TRIG 70 MG/DL 04/05/2015 Unknown LIPID GROUP 75734 TEST LDL 137 MG/DL 04/05/2015 Unknown LIPID GROUP 51474 CHOL 211 MG/DL 04/05/2015 Unknown LIPID GROUP 00352 RCHOL/HDL 3.52 RATIO 04/05/2015 Unknow n LIPID GROUP 59216 NON-HDL CH 151 MG/DL 04/05/2015 Unknow n COMPLETE BLOOD COUNT 2591455 WBC 5.3 10e9/L 04/05/20 15 Unknown COMPLETE BLOOD COUNT [id number] RBC 4.42 10e12/L 2014 Unknown COMPLETE BLOOD COUNT 5777535 HGB 13.4 g/dL 5 Unknown COMPLETE BLOOD COUNT 1556353 HCT DET 39.6 % 5 Unknown COMPLETE BLOOD COUNT 5601904 MCV 89.6 fL 5 Unknown COMPLETE BLOOD COUNT 4840461 MCH 30.3 pg 5 Unknown COMPLETE BLOOD COUNT 6774689 MCHC 33.8 g/dL 5 Unknown COMPLETE BLOOD COUNT 1634293 PLT 201 10e9/L 04/05/20 15 Unknown COMPLETE BLOOD COUNT 4180489 MPV 10.3 fL 5 Unknown COMPLETE BLOOD COUNT 0050287 LUPE % 56.4 % 5 Unknown COMPLETE BLOOD COUNT 2874404 LY % 24.8 % 5 Unknown COMPLETE BLOOD COUNT 4312162 MON % 12.8 % 5 Unknown COMPLETE BLOOD COUNT 3582042 EOS % 5.4 % 5 Unknown COMPLETE BLOOD COUNT 6722778 BASO % 0.6 % 5 Unknown COMPLETE BLOOD COUNT 6813912 RDW 13.2 % 5 Unknown COMPLETE BLOOD COUNT 1090069 ABS LUPE 2.99 10e9/L 015 Unknown COMPLETE BLOOD COUNT 5358965 ABS LYMPH 1.31 10e9/L 015 Unknown COMPLETE BLOOD COUNT 9852985 ABS MONO 0.68 10e9/L 015 Unknown COMPLETE BLOOD COUNT 7926654 ABS EOS 0.29 10e9/L 015 Unknown COMPLETE BLOOD COUNT 7165965 ABS BASO 0.03 10e9/L 015 Unknown COMPLETE BLOOD COUNT 9225415 RDW-SD 42.3 fL 5 Unknown LIPID GROUP 69582 HDL TEST 51 MG/DL 07/19/2012 Unknown LIPID GROUP 66835 TRIG 129 MG/DL 07/19/2012 Unknown LIPID GROUP 33219 TEST LDL 98 MG/DL 07/19/2012 Unknown LIPID GROUP 05969 CHOL 175 MG/DL 07/19/2012 Unknown LIPID GROUP 66318 RCHOL/HDL 3.43 RATIO 07/19/2012 Unknow n COMPREHENSIVE METABOLIC 45435 AST 18 U/L 2011 Unknown COMPREHENSIVE METABOLIC 49543 ALT 12 IU/L 2011 Unknown COMPREHENSIVE METABOLIC 01169 BUN 10 MG/DL 2011 Unknown COMPREHENSIVE METABOLIC 56849 ALBUMIN 4.1 GM/DL 2011 Unknown COMPREHENSIVE METABOLIC 37490 CHLORIDE 103 MMOL/L 07/19 Unknown COMPREHENSIVE METABOLIC 51176 BILI TOT 0.9 MG/DL 2011 Unknown COMPREHENSIVE METABOLIC 72887 ALK PHOS 62 U/L 2011 Unknown COMPREHENSIVE METABOLIC 68380 SODIUM 138 MMOL/L 07/19 Unknown COMPREHENSIVE METABOLIC 14137 CREATININE 1.08 MG/DL 10/2011 Unknown COMPREHENSIVE METABOLIC 42255 CALCIUM 9.1 MG/DL 2011 Unknown COMPREHENSIVE METABOLIC 22702 POTASSIUM 4.2 MMOL/L 07/19 Unknown COMPREHENSIVE METABOLIC 61468 PROT TOT 6.7 GM/DL 2011 Unknown COMPREHENSIVE METABOLIC 74641 Glucose 101 MG/DL 2011 Unknown COMPREHENSIVE METABOLIC 15861 BICARB 27 MMOL/L 2011 Unknown COMPREHENSIVE METABOLIC 67334 ANION GAP 8 MEQ/L 2011 Unknown GFR CALC [id number] GFR AA >60 ML/MIN 07/19/2012 Unknown GFR CALC [id number] GFR NON-AA >60 ML/MIN 07/19/2012 Unknown Procedures Procedure Codes Date ROUTINE VENIPUNCTURE CPT-4: 94902 09/30/2019 COMPREHEN METABOLIC PANEL CPT-4: 46086 09/30/2019 COMPLETE CBC W/AUTO DIFF WBC CPT-4: 19164 09/30/2019 ASSAY OF PSA TOTAL CPT-4: 37252 09/30/2019 ASSAY THYROID STIM HORMONE CPT-4: 73821 09/30/2019 LIPID PANEL CPT-4: 45617 09/30/2019 ROUTINE VENIPUNCTURE CPT-4: 83365 09/24/2019 COMPLETE CBC W/AUTO DIFF WBC CPT-4: 41072 09/24/2019 COMPREHEN METABOLIC PANEL CPT-4: 48849 09/24/2019 LIPID PANEL CPT-4: 89961 09/24/2019 ASSAY THYROID STIM HORMONE CPT-4: 69436 09/24/2019 THER/PROPH/DIAG INJ SC/IM CPT-4: 78107 01/13/2019 TRIAMCINOLONE ACET INJ NOS CPT-4: J3301 01/13/2019 DEXAMETHASONE SODIUM PHOS CPT-4: J1100 01/13/2019 ROUTINE VENIPUNCTURE CPT-4: 12236 09/04/2018 COMPREHEN METABOLIC PANEL CPT-4: 81194 09/04/2018 COMPLETE CBC W/AUTO DIFF WBC CPT-4: 61427 09/04/2018 LIPID PANEL CPT-4: 06482 09/04/2018 ASSAY OF PSA TOTAL CPT-4: 71754 09/04/2018 ASSAY THYROID STIM HORMONE CPT-4: 73077 09/04/2018 URINALYSIS NONAUTO W/O SCOPE CPT-4: 54572 05/15/2018 ROUTINE VENIPUNCTURE CPT-4: 83875 11/16/2017 A FRT/VG P CPT-4: 6146200 11/16/2017 A FOOD C P CPT-4: 5235460 11/16/2017 A NUTS PNL CPT-4: 9931679 11/16/2017 THER/PROPH/DIAG INJ SC/IM CPT-4: 03452 11/06/2017 TRIAMCINOLONE ACET INJ NOS CPT-4: J3301 11/06/2017 DEXAMETHASONE SODIUM PHOS CPT-4: J1100 11/06/2017 ROUTINE VENIPUNCTURE CPT-4: 41885 09/03/2017 ASSAY OF FREE THYROXINE CPT-4: 82670 09/03/2017 ASSAY THYROID STIM HORMONE CPT-4: 02161 09/03/2017 ASSAY TRIIODOTHYRONINE (T3) CPT-4: 99497 09/03/2017 ROUTINE VENIPUNCTURE CPT-4: 44864 07/31/2017 COMPREHEN METABOLIC PANEL CPT-4: 40041 07/31/2017 COMPLETE CBC W/AUTO DIFF WBC CPT-4: 66075 07/31/2017 LIPID PANEL CPT-4: 69370 07/31/2017 FLU VACC PRSV FREE INC ANTIG 65 AND OLDER CPT-4: 35396 07/04/2017 ADMIN INFLUENZA VIRUS VAC CPT-4: G0008 07/04/2017 ROUTINE VENIPUNCTURE CPT-4: 32930 02/26/2017 ASSAY THYROID STIM HORMONE CPT-4: 25679 02/26/2017 COMPREHEN METABOLIC PANEL CPT-4: 45072 02/26/2017 COMPLETE CBC W/AUTO DIFF WBC CPT-4: 57477 02/26/2017 LIPID PANEL CPT-4: 61568 02/26/2017 ASSAY OF PSA TOTAL CPT-4: 18089 02/26/2017 FLUZONE, 5ML (Medicare) CPT-4: Q2038 06/28/2016 ADMIN INFLUENZA VIRUS VAC CPT-4: G0008 06/28/2016 ROUTINE VENIPUNCTURE CPT-4: 83703 05/19/2016 ASSAY OF FREE THYROXINE CPT-4: 77925 05/19/2016 ASSAY THYROID STIM HORMONE CPT-4: 84112 05/19/2016 COMPREHEN METABOLIC PANEL CPT-4: 13504 05/19/2016 COMPLETE CBC W/AUTO DIFF WBC CPT-4: 36955 05/19/2016 LIPID PANEL CPT-4: 34569 05/19/2016 VITAMIN B-12 CPT-4: 43373 05/19/2016 PPPS, initial visit CPT-4: G0438 05/10/2016 ROUTINE VENIPUNCTURE CPT-4: 38047 04/05/2015 ASSAY THYROID STIM HORMONE CPT-4: 25017 04/05/2015 COMPREHEN METABOLIC PANEL CPT-4: 01652 04/05/2015 COMPLETE CBC W/AUTO DIFF WBC CPT-4: 92154 04/05/2015 LIPID PANEL CPT-4: 12674 04/05/2015 ASSAY OF PSA TOTAL CPT-4: 99687 04/05/2015 ROUTINE VENIPUNCTURE CPT-4: 43666 07/19/2012 COMPREHEN METABOLIC PANEL CPT-4: 95090 07/19/2012 LIPID PANEL CPT-4: 02053 07/19/2012 ELECTROCARDIOGRAM COMPLETE CPT-4: 85997 03/22/2012 Vital Signs Date Vital 09/24/2019 Blood Pressure 1: 125/72 Code: 8480-6 BMI: 19.8 Code: 47929-7 Heart Rate 1: 88 bpm Height: 5'11" [...] 1: 102/60 Code: 8480-6 BMI: 19.1 Code: 75499-9 Heart Rate 1: 82 bpm Height: 5'11" Respiratory Rate: 22 bpm SpO2: 97% Tempera ture: 36.4 (C) / 97.6 (F) Weight: 137 lbs 04/25/2018 Blood Pressure 1: 118/64 Code: 8480-6 BMI: 19.2 Code: 59838-3 Heart Rate 1: 98 bpm Height: 5'11" Respiratory Rate: 20 bpm SpO2: 99% Tempera ture: 36.4 (C) / 97.6 (F) Weight: 138 lbs 11/06/2017 Blood Pressure 1: 108/68 Code: 8480-6 BMI: 18.5 Code: 51522-9 Heart Rate 1: 68 bpm Height: 5'11" Respiratory Rate: 20 bpm SpO2: 96% Tempera ture: 36.8 (C) / 98.2 (F) Weight: 133 lbs 09/03/2017 Blood Pressure 1: 122/64 Code: 8480-6 BMI: 17.6 Code: 99120-6 Heart Rate 1: 90 bpm Height: 5'11" Respiratory Rate: 20 bpm SpO2: 98% Tempera ture: 36.4 (C) / 97.6 (F) Weight: 126 lbs 08/21/2017 Blood Pressure 1: 114/80 Code: 8480-6 BMI: 17.9 Code: 68219-5 Heart Rate 1: 80 bpm Height: 5'11" Respiratory Rate: 20 bpm SpO2: 95% Tempera ture: 36.6 (C) / 97.9 (F) Weight: 128 lbs 02/13/2017 Blood Pressure 1: 122/60 Code: 8480-6 BMI: 18.5 Code: 57830-9 Heart Rate 1: 76 bpm Height: 5'11" Respiratory Rate: 20 bpm SpO2: 96% Tempera ture: 36.9 (C) / 98.4 (F) Weight: 133 lbs 11/23/2016 Blood Pressure 1: 126/70 Code: 8480-6 BMI: 18.5 Code: 53573-0 Heart Rate 1: 100 bpm Height: 5'11" Respiratory Rate: 20 bpm SpO2: 96% Tempera ture: 37.1 (C) / 98.8 (F) Weight: 133 lbs 05/23/2016 Blood Pressure 1: 128/82 Code: 8480-6 BMI: 18.5 Code: 94236-7 Heart Rate 1: 88 bpm Height: 5'11" Respiratory Rate: 20 bpm Temperature: 36 .7 (C) / 98.0 (F) Weight: 133 lbs 05/10/2016 Blood Pressure 1: 146/70 Code: 8480-6 BMI: 18.5 Code: 52093-3 Heart Rate 1: 84 bpm Height: 5'11" Respiratory Rate: 20 bpm Temperature: 36 .7 (C) / 98.1 (F) Weight: 133 lbs 04/01/2015 Blood Pressure 1: 102/60 Code: 8480-6 BMI: 18.5 Code: 18302-5 Heart Rate 1: 64 bpm Height: 5'11" Respiratory Rate: 20 bpm Temperature: 36 .8 (C) / 98.2 (F) Weight: 133 lbs 01/13/2014 Blood Pressure 1: 124/78 Code: 8480-6 BMI: 19.8 Code: 27795-5 Heart Rate 1: 76 bpm Height: 5'11" Respiratory Rate: 20 bpm Temperature: 36 .8 (C) / 98.2 (F) Weight: 142 lbs 04/03/2012 Blood Pressure 1: 106/76 Code: 8480-6 BMI: 20.9 Code: 54259-2 Heart Rate 1: 84 bpm Height: 5'11" Respiratory Rate: 20 bpm Temperature: 36 .7 (C) / 98.0 (F) Weight: 150 lbs 12/20/2011 Blood Pressure 1: 116/60 Code: 8480-6 BMI: 20.1 Code: 47226-4 Heart Rate 1: 80 bpm Height: 5'11" Respiratory Rate: 20 bpm Temperature: 36 .4 (C) / 97.6 (F) Weight: 144 lbs 10/24/2011 Blood Pressure 1: 132/74 Code: 8480-6 BMI: 19.7 Code: 12487-2 Heart Rate 1: 96 bpm Height: 5'11" [...] up 04/01/2015 follow up 01/13/2014 [facility] fw from [facility] in November 2012 lab draw 07/19/2012 follow up 04/03/2012 S/P stent placement in LAD, changed effient to plavix hip pain 12/20/2011 dyskinesia or tremor 10/24/2011 follow up 03/13/2011 started on effient, zocor, and atenolol follow up 02/20/2011 Hospital Fw/Dr Christian rojas follow up 02/23/2010 [facility], appt with Dr Bajwa 03/22/10 insomnia 01/12/2010 problems falling and staying asleep, takes nortriptyline Encounters Encounter Performer Location Codes Date ([id number]) NURSE/OUTPATIENT VISIT EST Diagnosis: Essential (primary) hypertension[ICD10: I10] Diagnosis: Mixed hyperlipidemia[ICD10: E78.2] Diagnosis: Encounter for screening for malignant neoplasm of prostate[ICD10: Z12.5] [facility] CPT-4: 94500 09/30/2019 ([id number]) OFFICE/OUTPATIENT VISIT EST Diagnosis: Encounter for therapeutic drug level monitoring[ICD10: Z51.81] Diagnosis: Essential tremor[ICD10: G25.0] Verna Ramirez VONNIE Alvarez Joppel CPT-4: 82449 09/24/2019 ([id number]) OFFICE/OUTPATIENT VISIT EST Diagnosis: Noninfective gastroenteritis and colitis, unspecified[ICD10: K52.9] Diagnosis: Hemorrhage of anus and rectum[ICD10: K62.5] [facility] CPT-4: 63869 05/26/2019 ([id number]) OFFICE/OUTPATIENT VISIT EST Diagnosis: Other intervertebral disc degeneration, 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] Diagnosis: Other forms of dyspnea[ICD10: R06.09] [facility] CPT-4: 50634 03/17/2019 OFFICE/OUTPATIENT VISIT EST Diagnosis: Other intervertebral disc degeneration, 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] Diagnosis: Other symptoms and signs involving the musculoskeletal system[ICD10: R29.898] Vonnie Loza [employer] CPT-4: 12189 02/18/2019 ([id number]) OFFICE/OUTPATIENT VISIT EST Diagnosis: Other allergic rhinitis[ICD10: J30.89] Akilah ALBERTO [employer]ISH[facility] CPT-4: 95102 01/13/2019 ([id number]) NURSE/OUTPATIENT VISIT EST Diagnosis: Mixed hyperlipidemia[ICD10: E78.2] Diagnosis: Essential (primary) hypertension[ICD10: I10] Diagnosis: Encounter for screening for malignant neoplasm of prostate[ICD10: Z12.5] Diagnosis: Encounter for general adult medical examination with abnormal findings[ICD10: Z00.01] Diagnosis: Benign prostatic hyperplasia without lower urinary tract symptoms[ICD10: N40.0] Vonnie MATHEWS [employer] CPT-4: 05154 09/04/2018 ([id number]) OFFICE/OUTPATIENT VISIT EST Diagnosis: Otorrhea, left ear[ICD10: H92.12] Diagnosis: Impacted cerumen, right ear[ICD10: H61.21] Verna MATHEWS [employer] CPT-4: 46109 09/03/2018 ([id number]) OFFICE/OUTPATIENT VISIT EST Diagnosis: Other intervertebral disc degeneration, 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] Diagnosis: Primary insomnia[ICD10: F51.01] Diagnosis: Essential tremor[ICD10: G25.0] Vonnie MATHEWS [employer] CPT-4: 23388 08/26/2018 ([id number]) OFFICE/OUTPATIENT VISIT EST Diagnosis: Pelvic and perineal pain[ICD10: R10.2] Verna MATHEWS [employer] CPT-4: 03475 05/15/2018 ([id number]) OFFICE/OUTPATIENT VISIT EST Diagnosis: Encounter for therapeutic drug level monitoring[ICD10: Z51.81] Diagnosis: Acute sinusitis, unspecified[ICD10: J01.90] Diagnosis: Other intervertebral disc degeneration, 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] Diagnosis: Essential tremor[ICD10: G25.0] Diagnosis: Raynaud's syndrome without gangrene[ICD10: I73.00] [facility] [employer] CPT-4: 98810 04/25/2018 ([id number]) OFFICE/OUTPATIENT VISIT EST Diagnosis: Idiopathic urticaria[ICD10: L50.1] Diagnosis: Other urticaria[ICD10: L50.8] Vonnie MATHEWS DO [facility] CPT-4: 50076 11/16/2017 ([id number]) OFFICE/OUTPATIENT VISIT EST Diagnosis: Idiopathic urticaria[ICD10: L50.1] Diagnosis: Other urticaria[ICD10: L50.8] Diagnosis: Other forms of dyspnea[ICD10: R06.09] Vonnie MATHEWS DO [facility] CPT-4: 06305 11/06/2017 ([id number]) OFFICE/OUTPATIENT VISIT EST Diagnosis: Dyspnea, unspecified[ICD10: R06.00] Diagnosis: Abnormal weight loss[ICD10: R63.4] Vonnie Romuloraheemranjan LAIDONAJOVANNY MATHEWS [employer] [facility] CPT-4: 62997 09/03/2017 ([id number]) OFFICE/OUTPATIENT VISIT EST 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] Diagnosis: Mixed hyperlipidemia[ICD10: E78.2] Diagnosis: Essential tremor[ICD10: G25.0] Diagnosis: Essential (primary) hypertension[ICD10: I10] Diagnosis: Abnormal weight loss[ICD10: R63.4] Vonnie Romuloraheemranjan MATHEWS [employer] [facility] CPT-4: 70145 08/21/2017 ([id number]) OFFICE/OUTPATIENT VISIT EST Diagnosis: Mixed hyperlipidemia[ICD10: E78.2] Diagnosis: Essential (primary) hypertension[ICD10: I10] 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] Diagnosis: Anemia, unspecified[ICD10: D64.9] Vonnie Galarza Denia MATHEWS [employer] [facility] CPT-4: 27102 07/31/2017 ([id number]) OFFICE/OUTPATIENT VISIT EST Diagnosis: FLU VACCINE[ICD10: Z23] Vonnie COLMENARES Denia GERMAN [employer] [facility] CPT-4: 92705 07/04/2017 ([id number]) OFFICE/OUTPATIENT VISIT EST Diagnosis: Mixed hyperlipidemia[ICD10: E78.2] Diagnosis: Essential tremor[ICD10: G25.0] 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] Diagnosis: Essential (primary) hypertension[ICD10: I10] Diagnosis: Supraventricular tachycardia[ICD10: I47.1] Diagnosis: Other fatigue[ICD10: R53.83] Diagnosis: Encounter for screening for malignant neoplasm of prostate[ICD10: Z12.5] Vonnie MATHEWS [employer] [facility] CPT-4: 62294 02/26/2017 ([id number]) OFFICE/OUTPATIENT VISIT EST Diagnosis: Essential tremor[ICD10: G25.0] Vonnie MATHEWS DO [facility] CPT-4: 58725 02/13/2017 ([id number]) OFFICE/OUTPATIENT VISIT EST Diagnosis: Essential tremor[ICD10: G25.0] Diagnosis: Other intervertebral disc degeneration, 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] Vonnie MATHEWS [employer] [facility] CPT-4: 80443 11/23/2016 ([id number]) OFFICE/OUTPATIENT VISIT EST Diagnosis: FLU VACCINE[ICD10: Z23] Vonnie GERMAN [employer] [facility] CPT-4: 03242 06/28/2016 OFFICE/OUTPATIENT VISIT EST Diagnosis: Open bite of right hand, initial encounter[ICD10: S61.451A] Vonnie MATHEWS DO [facility] CPT-4: 80728 05/23/2016 ([id number]) OFFICE/OUTPATIENT VISIT EST Diagnosis: Encounter for general adult medical examination with abnormal findings[ICD10: Z00.01] Diagnosis: Mixed hyperlipidemia[ICD10: E78.2] Diagnosis: Essential tremor[ICD10: G25.0] 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] Vonnie MATHEWS [employer] [facility] CPT-4: 46828 05/19/2016 ([id number]) OFFICE/OUTPATIENT VISIT EST Diagnosis: HYPERLIPIDEMIA NEC/NOS[ICD9: 272.4] Diagnosis: CAD[ICD9: 414.00] Diagnosis: TACHYCARDIA[ICD9: 785.0] Diagnosis: HYPERTENSION[ICD9: 401.9] Diagnosis: Routine medical exam[ICD9: V70.0] Vonnie Sebastianiron [facility]CI[facility]SHA MATHEWS [employer] [facility] CPT-4: 31110 04/05/2015 ([id number]) OFFICE/OUTPATIENT VISIT EST Diagnosis: HYPERTENSION[ICD9: 401.9] Diagnosis: HYPERLIPIDEMIA NEC/NOS[ICD9: 272.4] Diagnosis: CAD[ICD9: 414.00] Diagnosis: LUMB/LUMBOSAC DISC DEGEN[ICD9: 722.52] Vonnie Sebastianraheemrnajan BOWMAN [employer] [facility] CPT-4: 92054 04/01/2015 ([id number]) OFFICE/OUTPATIENT VISIT EST Diagnosis: CHEST PAIN NOS[ICD9: 786.50] Diagnosis: PAIN IN THORACIC SPINE[ICD9: 724.1] Diagnosis: HYPERTENSION[ICD9: 401.9] Diagnosis: GERD[ICD9: 530.81] Vonnie Reid [facility]ENCIOLINE GilbertoKim COLBY [employer] [facility] CPT-4: 24535 01/13/2014 ([id number]) OFFICE/OUTPATIENT VISIT EST Diagnosis: CAD[ICD9: 414.00] Diagnosis: HYPERLIPIDEMIA NEC/NOS[ICD9: 272.4] Vonnie Romuloiron ANNA Denia BOWMAN [employer] [facility] CPT-4: 24960 07/19/2012 ([id number]) OFFICE/OUTPATIENT VISIT EST Diagnosis: CAD[ICD9: 414.00] Diagnosis: INSOMNIA NOS[ICD9: 780.52] Vonnie COLMENARES [facility]ber[facility]Kim [facility] CPT-4: 16591 04/03/2012 ([id number]) OFFICE/OUTPATIENT VISIT EST Diagnosis: CHEST PAIN NOS[ICD9: 786.50] Diagnosis: CAD[ICD9: 414.00] Vonnie Romuloiron COLMENARES GilbertoKim COLBY [employer] [facility] [facility] CPT-4: 39700 03/22/2012 ([id number]) OFFICE/OUTPATIENT VISIT EST Diagnosis: PROSTATITIS[ICD9: 601.9] Diagnosis: TREMOR NEC[ICD9: 333.1] Vonnie COLMENARES GilbertoKim COLBY GERMAN [employer] [facility] [facility] CPT-4: 72819 12/20/2011 OFFICE/OUTPATIENT VISIT EST Diagnosis: TREMOR NEC[ICD9: 333.1] Diagnosis: TACHYCARDIA[ICD9: 785.0] Diagnosis: HYPERTENSION[ICD9: 401.9] Vonnie SEBASTIAN [employer] CPT-4: 59035 10/24/2011 OFFICE/OUTPATIENT VISIT EST Vonnie SEBASTIAN [employer] CPT- 4: 41794 03/13/2011 ([id number]) OFFICE/OUTPATIENT VISIT EST Vonnie GASPAR SKim [facility] CPT-4: 87950 02/20/2011 ([id number]) OFFICE/OUTPATIENT VISIT, EST Vonnie Loza [employer] CPT-4: 22495 02/23/2010 ([id number]) OFFICE/OUTPATIENT VISIT, EST Vonnie Loza [employer] CPT-4: 69090 01/12/2010 Plan of Care Planned Activity Notes Codes Status Date Appointment: ColbyranjanVonnie [facility] [phone] [facility] [facility] 09/30/2019 Appointment: Verna Ramirez [address] [employer] [id number] RESCHEDULED 09/25/2019 Visit Diagnosis Plan: Encounter for therapeutic drug l evel monitoring Discussion: UDS and contract completed today. ICD-9 : V58.83 ICD-10 : Z51.81 09/24/2019 Visit Diagnosis Plan: Essential tremor Discussion: sta ble on clonazepam. educated patient about purchasing a large, heavy pen that will allow him to improve his writing. instructed him that pens can be purchased on [employer]. ICD-9 : 333.1 ICD-10 : G25.0 09/24/2019 Appointment: Verna Ramirez [address] [employer] [id number] MEDICATION REVIEW 09/24/2019 Visit Diagnosis Plan: Hemorrhage of anus and rectum Di scussion: Update colonoscopy ICD-9 : 569.3 ICD-10 : K62.5 05/26/2019 Visit Diagnosis Plan: Noninfective gastroenteritis and colitis, unspecified Discussion: Flagyl [place] diet Update colonoscopy ICD-9 : 558.9 ICD-10 : K52.9 05/26/2019 Appointment: Vonnie Mathews WPtel: [address] [place], [place] [phone] [place] record request faxed 05/23; LM with medical records 05/26/19 Hospital Follow Up 05/26/2019 Care Plan: Referral Order SNOMED-CT : 30 [id number] Pending 05/26/2019 Visit Diagnosis Plan: Other intervertebral disc degene ration, lumbar region Discussion: Increase lyrica to 150mg po q HS Continue stretches from PT [facility] Fwup after that appointment ICD-9 : 722.52 ICD-10 : M51.36 03/17/2019 Appointment: Vonnie Mathews WPtel: [address] [place], [place] [phone] US FOLLOW UP 03/17/2019 Visit Diagnosis Plan: [...] : M51.36 02/18/2019 Appointment: Vonnie Mathews WPtel: [address] [place], [place] [phone] US FOLLOW UP 02/18/2019 Appointment: Vonnie Mathews WPtel: [address] [place], [place] [phone] US CANCELED 02/18/2019 Visit Diagnosis Plan: Other [...] J30.89 01/13/2019 Appointment: Akilah Lopez [address] Due for annual wellness ACUTE ILLNESS 01/14/20 Appointment: Vonnie Mathews WPtel: [address] [place], [place] [phone] [place] LAB 09/04/2018 Visit Diagnosis Plan: Otorrhea, [...] : H61.21 09/03/2018 Appointment: Verna Ramirez [address] ACUTE ILLNESS 09/03/2018 Visit Diagnosis Plan: [...] : G25.0 08/26/2018 Appointment: Vonnie Mathews WPtel: [address] [place], [place] [phone] US FOLLOW UP 08/26/2018 Visit Diagnosis Plan: [...] ICD-10 : R10.2 05/15/2018 Appointment: Verna Ramirez [address] [place], [place] [id number] ACUTE ILLNESS 05/15/2018 Patient Education: Patient Medication Summary Completed 05/15/2018 Care Plan: US EXAM PELVIC COMPLETE scrotal LOINC : 77523-6 Pending 05/15/2018 Visit Diagnosis Plan: Other intervertebral [...] : J01.90 04/25/2018 Appointment: [facility]a Ramirez [id number] MEDICATION REVIEW 04/25/2018 Patient Education: Patient Medication Summary Completed 04/25/2018 Appointment: Vonnie Mathews [facility]Ptel[facility] [phone] [facility] 11/16/2017 Patient Education: Patient Medication Summary Completed [...] : L50.1 11/06/2017 Appointment: Vonnie Mathews WPtel: [address] [place], [place] [id number] FOLLOW UP 11/06/2017 Patient Education: Patient Medication [...] : R63.4 09/03/2017 Appointment: Vonnie Mathews WPtel: [address] [place], [place] [id number] FOLLOW UP 09/03/2017 Patient Education: Patient Medication Summary Completed 09/03/2017 Visit Diagnosis Plan: Mixed hyperlipidemia Discussion: Lab discussed ICD-9 : 272.4 ICD-10 : E78.2 08/21/2017 Visit Diagnosis Plan: Essential tremor Discussion: Sta ble on Primidone ICD-9 : 333.1 ICD-10 : G25.0 08/21/2017 Visit Diagnosis Plan: Atherosclerotic he art disease of [place] coronary artery without angina pectoris Discussion: Sees Cardiology in 2 days To ER if CP returns before ICD-9 : 414.00 ICD-10 : I25.10 08/21/2017 Visit Diagnosis Plan: Abnormal weight loss Discussion: Start daily protein shake or smoothie ICD-9 : 783.21 ICD-10 : R63.4 08/21/2017 Visit Diagnosis Plan: Essential (primary) hypertension Discussion: Stable ICD-9 : 401.9 ICD-10 : I10 08/21/2017 Appointment: Vonnie Mathews WPtel: [address] [place], [place] [phone] US FOLLOW UP 08/21/2017 Patient Education: Patient Medication Summary Completed 08/21/2017 Appointment: Vonnie Mathews WPtel: [address] [place], [place] [phone] [place] LAB 07/31/2017 Patient Education: Patient Medication Summary Completed 07/31/2017 Appointment: Vonnie Mathews WPtel: [address] [place], [place] [phone] US INJECTION 07/04/2017 Patient Education: Patient Medication Summary Completed 07/04/2017 Appointment: Vonnie Mathews WPtel: [address] [place], [place] [phone] [place] LAB 02/26/2017 Patient Education: Patient Medication Summary Completed 02/26/2017 Visit Diagnosis Plan: Essential tremor Discussion: Con tinue clonazepam at 1mg q AM and primidone 50mg q HS Follow Up: 3 months ICD-9 : 333.1 ICD-10 : G25.0 02/13/2017 Appointment: Vonnie Mathews WPtel: [address] [place], [place] [phone] [place] 02/08 confirmed~sl FOLLOW UP 02/13/2017 Patient Education: Patient Medication Summary Completed 02/13/2017 Appointment: Vonnie Mathews WPtel: [address] [place], [place] [phone] [place] RESCHEDULED 01/23/2017 Visit Diagnosis Plan: Other intervertebral disc degene ration, lumbar region Discussion: DC oxycodone Tramadol 50mg 1-2 po TID prn pain Follow Up: 2 months ICD-9 : 722.52 ICD-10 : M51.36 11/23/2016 Visit Diagnosis Plan: Essential tremor Discussion: Inc rease clonazepam to 1mg po BID Discussed sinemet ICD-9 : 333.1 ICD-10 : G25.0 11/23/2016 Appointment: Vonnie Mathews WPtel: [address] [place], [place] [phone] 3 confirmed~sl MEDICATION REVIEW 11/23/2016 Patient Education: Patient Medication Summary Completed 11/23/2016 Patient Education: [facility] [employer] - Clonazepam - 18-64 - Dynamic Portal ID Completed 11/23/2016 Appointment: Vonnie Mathews WPtel: [address] [place], [place] [phone] INJECTION 06/28/2016 Patient Education: Patient Medication Summary Completed 06/28/2016 Referral: Fernando Day WPtel: #1 [facility]66[facility] [phone] per Maribeth, the patient is [...] if worsening 05/23/2016 Appointment: Vonnie Mathews WPtel: [address] [place], [place] [address] ER Follow UP 05/23/2016 Patient Education: Patient Medication Summary Completed 05/23/2016 Appointment: Vonnie Mathews WPtel: [phone] [place], [place] [phone] LAB 05/19/2016 Patient Education: Patient Medication Summary Completed 05/19/2016 Visit Plan: Change coreg to 3.125mg BID Trial of low dose clonazepam 0.5mg BID for tremors Fwup with Dr. Ramsey as scheduled Return for fasting lab--CBC, CMP, TSH, free T4, Lipids, PSA, B12 Proceed with Colonoscopy 05/10/2016 Appointment: Vonnie Mathews WPtel: [address] [place] [address] 05/09 confirmed~sl Annual Well Visit 05/10/2016 Patient Education: Patient Medication Summary Completed 05/10/2016 Care Plan: Referral Order SNOMED-CT : 30 [id number] Pending 05/10/2016 Appointment: Vonnie Mathews WPtel: [address] [place] [address] [place] Rescheduled for 05/10/16 at 2PM~lb RESCHEDULED 04/26/2016 Referral: Danilo Ramsey [facility] [address] Referral Initiated 04/29/2015 Appointment: Vonnie Mathews WPtel: [address] [place] [address] LAB 04/05/2015 Patient Education: Patient Medication Summary Completed 04/05/2015 Visit Plan: Return in AM for fasting lab --CMP, lipids, CBC, TSH, PSA Change hydrocodone to oxycodone 7.5/325mg 1-2 po TID Schedule with cardiology Needs colonoscopy once cardiology evaluation complete Will need to restart chol meds after lab Recheck 1mo on pain meds 04/01/2015 Appointment: Vonnie Mathews WPtel: [address] [place], [place] [phone] 03/31 confirmed -mf PHYSICAL 04/01/2015 Patient Education: Patient Medication Summary Completed 04/01/2015 Appointment: Vonnie Mathews WPtel: [address] [place] [address] Annual Well Visit 09/23/2014 Visit Plan: Continue protonix Pt has fwu p with Card next month Rec chiropracter or PT for ribs/thoracics being out and could be contributing to chest pain 01/13/2014 Appointment: Vonnie Mathews WPtel: [address] [place], [place] [phone] [place] FOLLOW UP 01/13/2014 Patient Education: Patient Medication Summary Completed 01/13/2014 Appointment: Ariella Mcnally WPtel: [address] [place], [place] [phone] FOLLOW UP 12/12/2013 Appointment: Malika Cárdenas WPtel: [address] [place] [address] PHYSICAL 12/12/2013 Appointment: Vonnie Mathews WPtel: [address] [place] [address] ACUTE ILLNESS 02/20/2013 Appointment: Vonnie Mathews WPtel: [address] [place] [address] LAB 07/19/2012 Patient Education: Patient Medication Summary Completed 07/19/2012 Appointment: Vonnie Mathews WPtel: [address] [place] [address] FOLLOW UP 04/03/2012 Patient Education: Patient Medication Summary Completed 04/03/2012 Appointment: Vonnie Mathews WPtel: [address] [place] [address] ACUTE ILLNESS 03/22/2012 Patient Education: Patient Medication Summary Completed 03/22/2012 Appointment: Vonnie Mathews WPtel: [address] [place], [place] [address] US FOLLOW UP 12/26/2011 Visit Plan: Add Cipro Continue current m eds 12/20/2011 Appointment: Vonnie Mathews WPtel: [address] [place] [address] ACUTE ILLNESS 12/20/2011 Patient Education: Patient Medication Summary Completed 12/20/2011 Visit Plan: Change neurontin to Cymbalta 30mg for 1wk then 60mg QD Add Propranolol for tremor 10/24/2011 Appointment: Vonnie Mathews WPtel: [address] [place], [place] [phone] ACUTE ILLNESS 10/24/2011 Appointment: Vonnie Mathews WPtel: [address] [place], [place] [phone] ACUTE ILLNESS 10/24/2011 Patient Education: Patient Medication Summary Completed 10/24/2011 Visit Plan: Continue current meds and fw up with Card as scheduled 03/13/2011 Appointment: Vonnie Mathews WPtel: [address] [place], [place] [phone] FOLLOW UP 03/13/2011 Patient Education: Patient Medication Summary Completed 03/13/2011 Visit Plan: Will obtain all records and lab from [facility] Discussed will likely need heart cath which pt states that Card did talk to him about in the hospital 02/20/2011 Appointment: Vonnie Mathews WPtel: [address] [place] [address] ACUTE ILLNESS 02/20/2011 Patient Education: Patient Medication Summary Completed 02/20/2011 Visit Plan: Cont Pepcid and Prilosec See Card for cardiac cath. 02/23/2010 Appointment: Vonnie Mathews WPtel: [address] [place], [place] [phone] FOLLOW UP 02/23/2010 Patient Education: Patient Medication Summary Completed 02/23/2010 Visit Plan: Increase Pamelor to 75mg qhs Increase Hydrocodone to 10/325mg 1-2 po q6 prn 01/12/2010 Appointment: Vonnie Mathews WPtel: [address] [place], [place] [phone] ACUTE ILLNESS 01/12/2010 Patient Education: Patient Medication Summary Completed 01/12/2010 Referral: Iván Pardo WPtel: [facility] [phone] , [address] 1 [id number] Referral Initiated Referral: Fernando Day WPtel: [address] [facility] [place] A [id number] [place] Referral Completed Referral: Fernando Day WPtel: #1 [facility] [place] [employer] [id number] [place] Referral Appointment Requested Instructions Comment . [...]
--- OUTSIDE RECORDS SUMMARY | 2020-02-10 08:22 | XMS REPORT | CCD ---
Author Author Nash Mathews D.O. Organization [facility] Address [address] [place] [address] Phone Care Team Providers Care Utilization Manager Name Role Phone Vonnie Mathews D.O., PP Unavailable CCM Unavailable Summary Purpose Interface Exchange Insurance Providers Payer name Policy type / Coverage type Covered libertarian ID Effective Begin Date Effective End Date WPS MEDICARE PART B [place] Part B [id number] 2018 Unknown Family History Family History data not found Social History Social History Element Codes Description Effective Dates Marital status Unknown 10/24/[address]: 397176272 Nonsmoker 03/29/2011 Allergies, Adverse Reactions, Alerts Substance [...] Fill Instructions clonazepam 1 mg tablet RxNorm: 862220 TAKE 1 TABLET BY MOUTH EV SUASN AM 09/23/2019 10/22/2019 Active clonazepam 1 mg tablet RxNorm: 819209 TAKE 1 TABLET BY MOUTH EV SUSAN AM 08/21/2019 09/22/2019 Inactive Singulair 10 mg tablet RxNorm: 538086 TABLET(S) 1 TABLET(S) PO QD 1 10/11/2019 Active Flagyl 500 mg tablet RxNorm: 229747 1 Tablet(s) PO TID 05/26/2019 Inactive clonazepam 1 mg tablet RxNorm: 716548 TAKE 1 TABLET BY MOUTH EV SUSAN MORNING 05/23/2019 06/21/2019 Inactive pravastatin 20 mg tablet RxNorm: 969145 1 Tablet(s) PO QD 04/14/2019 10/10/2019 Active Needs updated fasting labs Singulair 10 mg tablet RxNorm: 748122 Tablet(s) 1 TABLET(S) PO QD 0 04/14/2019 07/12/2019 Inactive clonazepam 1 mg tablet RxNorm: 796375 1 Tablet(s) PO QAM 02/21/2019 0 05/23/2019 Inactive Bevespi Aerosphere 9 mcg-4.8 mcg HFA aerosol inhaler RxNorm: 5139404 2 Puff(s) INH BID 02/19/2019 No Stop Date Active ProAir HFA 90 mcg/actuation aerosol inhaler RxNorm: 940277 2 Puff(s) INH Q4H as needed 02/19/2019 09/24/2019 Inactive metoprolol tartrate 25 mg tablet RxNorm: 079941 1/2 Tablet(s) PO BI D 02/18/2019 05/18/2019 Inactive pravastatin 20 mg tablet RxNorm: 410845 1 Tablet(s) PO QD Needs updated fasting labs 01/13/2019 04/14/2019 Inactive Needs updated fa sting labs Singulair 10 mg tablet RxNorm: 898881 Tablet(s) 1 TABLET(S) PO QD 0 01/13/2019 04/12/2019 Inactive Plavix 75 mg tablet RxNorm: 920947 Tablet(s) 1 TABLET(S) PO QD 04/201906/20/2019 Inactive [SAVINGS FOR NON-COVERED SHANDA -- BIN:005888, PCN: ASPROD1, Group: XXXXX, ID# [id number], Questions: . THIS IS NOT INSURANCE.] Singulair 10 mg tablet RxNorm: 173197 1 TABLET(S) PO QD 10/29/2018 Inactive primidone 50 mg tablet RxNorm: 156530 2 TABLET(S) PO BI D TAKE 2 TABLETS BY MOUTH EVERY NIGHT AT BEDTIME 10/07/2018 01/12/2019 Inactive Patient requests 90 days supply pravastatin 20 mg tablet RxNorm: 608348 1 TABLET(S) PO QD 09/23/2018 01/12/2019 Inactive clonazepam 1 mg tablet RxNorm: 717651 1 Tablet(s) PO QAM 09/19/2018 0 12/17/2018 Inactive primidone 50 mg tablet RxNorm: 975153 TABLET(S) TAKE 2 TABLETS BY MOUTH EVERY NIGHT AT BEDTIME 09/18/2018 01/12/2019 Inactive ciprofloxacin 0.2 % ear drops in a dropperette RxNorm: 81596 6 2 Drop(s) left otic (ear) BID 09/03/2018 09/09/2018 Inactive primidone 50 mg tablet RxNorm: 528651 2 Tablet(s) PO BI D TAKE 2 TABLETS BY MOUTH EVERY NIGHT AT BEDTIME 08/26/2018 10/06/2018 Inactive Ambien 5 mg tablet RxNorm: 873105 TAKE 1 TABLET BY MOUTH EVERY NIGHT AT BEDTIME 08/05/2018 09/03/2018 Inactive Singulair 10 mg tablet RxNorm: 812810 1 TABLET(S) PO QD 07/23/2018 Inactive clonazepam 1 mg tablet RxNorm: 771912 TAKE 1 TABLET BY MOUTH EV SUSAN MORNING 07/23/2018 08/21/2018 Inactive Plavix 75 mg tablet RxNorm: 508513 1 TABLET(S) PO QD 07/04/201812/22 Inactive [SAVINGS FOR NON-COVERED DRUGS -- BIN:00 3585, PCN: ASPROD1, Group: XXXXX, ID# [id number], Questions: . THIS IS NOT INSURANCE.] clonazepam 1 mg tablet RxNorm: 156947 TAKE 1 TABLET BY MOUTH EV SUSAN MORNING 06/25/2018 07/23/2018 Inactive clonazepam 1 mg tablet RxNorm: 382761 TAKE 1 TABLET BY MOUTH EV SUSAN MORNING 05/23/2018 06/21/2018 Inactive primidone 50 mg tablet RxNorm: 796730 Tablet(s) TAKE 2 TABLETS BY MOUTH EVERY NIGHT AT BEDTIME 05/16/2018 08/25/2018 Inactive oxycodone-acetaminophen 7.5 mg-325 mg tablet RxNorm: 7333464 1-2 Tablet(s) PO TID as needed 04/25/2018 05/24/2018 Inactive Singulair 10 mg tablet RxNorm: 031210 1 Tablet(s) PO QD 04/25/2018 Inactive Medrol (Jose) 4 mg tablets in a dose pack RxNorm: 145589 Tablet(s) PO take as directed 04/25/2018 09/02/2018 Inactive clonazepam 1 mg tablet RxNorm: 694901 TAKE 1 TABLET BY MOUTH EV SUSAN MORNING 04/24/2018 05/22/2018 Inactive Plavix 75 mg tablet RxNorm: 909279 1 TABLET(S) PO QD 04/04/201807/02 Inactive [SAVINGS FOR NON-COVERED DRUGS -- BIN:00 358, PCN: ASPROD1, Group: XXXXX, ID# [id number], Questions: . THIS IS NOT INSURANCE.] pravastatin 20 mg tablet RxNorm: 098908 1 Tablet(s) PO QD 03/21/2018 09/16/2018 Inactive ProAir HFA 90 mcg/actuation aerosol inhaler RxNorm: 048756 2 Puff(s) INH Q4H as needed 03/18/2018 03/17/2018 Inactive tamsulosin 0.4 mg capsule RxNorm: 681427 1 CAPSULE(S) PO QD 018 01/12/2019 Inactive clonazepam 1 mg tablet RxNorm: 713092 1 Tablet(s) PO QAM 02/25/2018 0 04/25/2018 Inactive tamsulosin 0.4 mg capsule RxNorm: 416864 1 Capsule(s) PO QD 018 03/13/2018 Inactive tamsulosin 0.4 mg capsule RxNorm: 819348 1 Capsule(s) PO QD 018 02/03/2018 Inactive tamsulosin 0.4 mg capsule RxNorm: 157346 1 Capsule(s) PO QD 018 02/12/2018 Inactive Ambien 5 mg tablet RxNorm: 078935 Tablet(s) TAKE 1 TAB LET BY MOUTH EVERY NIGHT AT BEDTIME 01/24/2018 08/05/2018 Inactive primidone 50 mg tablet RxNorm: 857396 Tablet(s) TAKE 2 TABLETS BY MOUTH EVERY NIGHT AT BEDTIME 01/18/2018 05/16/2018 Inactive cyclobenzaprine 10 mg tablet RxNorm: 715437 1 Tablet(s) PO TID as needed for muscle spasm 01/11/2018 02/09/2018 Inactive [SAVINGS FOR NON -COVERED DRUGS -- BIN:503779, PCN: ASPROD1, Group: XXXXX, ID# [id number], Questions: . THIS IS NOT INSURANCE.] clonazepam 1 mg tablet RxNorm: 209834 1 Tablet(s) PO QAM 12/24/2017 0 02/21/2018 Inactive prednisone 20 mg tablet RxNorm: 445361 1 Tablet(s) PO QD 11/06/2017 0 11/10/2017 Inactive EpiPen 2-Jose 0.3 mg/0.3 mL injection, auto-injector RxNorm: 581183 1 Unit Dose IM as needed 11/06/2017 09/24/2019 Inactive ProAir HFA 90 mcg/actuation aerosol inhaler RxNorm: 248295 2 Puff(s) INH Q4H as needed 10/30/2017 03/17/2018 Inactive primidone 50 mg tablet RxNorm: 395789 TAKE 2 TABLETS BY MOUTH EVERY NIGHT AT BEDTIME 10/15/2017 01/17/2018 Inactive Plavix 75 mg tablet RxNorm: 025544 1 Tablet(s) PO QD 10/01/201703/29 Inactive [SAVINGS FOR NON-COVERED DRUGS -- BIN:00 3585, PCN: ASPROD1, Group: XXXXX, ID# [id number], Questions: . THIS IS NOT INSURANCE.] clonazepam 1 mg tablet RxNorm: 406627 1 Tablet(s) PO QAM 09/19/2017 0 12/16/2017 Inactive primidone 50 mg tablet RxNorm: 691967 2 Tablet(s) PO QHS 08/29/2017 0 01/18/2018 Inactive oxycodone-acetaminophen 7.5 mg-325 mg tablet RxNorm: 9285927 1-2 Tablet(s) PO TID as needed 08/22/2017 09/19/2017 Inactive pravastatin 20 mg tablet RxNorm: 367626 1 Tablet(s) PO QD 08/21/2017 03/21/2018 Inactive carvedilol 3.125 mg tablet RxNorm: 812333 1 Tablet(s) P O BID to replace 6.25mg dose 08/21/2017 09/02/2017 Inactive primidone 50 mg tablet RxNorm: 869860 TAKE 2 TABLETS BY MOUTH EVERY NIGHT AT BEDTIME 06/18/2017 08/28/2017 Inactive clonazepam 1 mg tablet RxNorm: 467310 1 Tablet(s) PO QAM 06/04/2017 1 11/02/2016 Inactive Plavix 75 mg tablet RxNorm: 032468 1 Tablet(s) PO QD 04/10/201710/01 Inactive [SAVINGS FOR NON-COVERED DRUGS -- BIN:00 3585, PCN: ASPROD1, Group: XXXXX, ID# [id number], Questions: . THIS IS NOT INSURANCE.] pravastatin 20 mg tablet RxNorm: 117073 1 Tablet(s) PO QD 02/26/2017 08/24/2017 Inactive carvedilol 3.125 mg tablet RxNorm: 820332 1 Tablet(s) P O BID to replace 6.25mg dose 02/26/2017 08/21/2017 Inactive Ultram 50 mg tablet RxNorm: 716305 TAKE 1 TO 2 TABLETS BY MOUTH THREE TIMES DAILY NEEDED FOR PAIN 02/26/2017 03/07/2017 Inactive pravastatin 20 mg tablet RxNorm: 383665 1 Tablet(s) PO QD 02/26/2017 08/21/2017 Inactive carvedilol 3.125 mg tablet RxNorm: 032158 1 Tablet(s) P O BID to replace 6.25mg dose 02/26/2017 08/20/2017 Inactive clonazepam 0.5 mg tablet RxNorm: 202069 1 Tablet(s) PO QAM 02/14/20 17 02/13/2017 Inactive primidone 50 mg tablet RxNorm: 132254 1 Tablet(s) PO QHS 02/13/2017 0 05/01/2017 Inactive clonazepam 1 mg tablet RxNorm: 882972 1 Tablet(s) PO QAM 02/13/2017 0 05/13/2017 Inactive primidone 50 mg tablet RxNorm: 280655 1/2 Tablet(s) PO QD for 7 days then increase to 1 tablet at bedtime 01/09/2017 02/12/2017 Inactive pravastatin 20 mg tablet RxNorm: 024853 Tablet(s) 1 TABLET(S) PO QD 11/29/2016 02/25/2017 Inactive clonazepam 1 mg tablet RxNorm: 148737 1 Tablet(s) PO BID replac es 0.5mg dose 11/23/2016 01/08/2017 Inactive pravastatin 20 mg tablet RxNorm: 048290 1 TABLET(S) PO QD 11/17/2016 11/28/2016 Inactive Ambien 5 mg tablet RxNorm: 780640 TAKE 1 TABLET BY MOUTH EVERY NIGHT AT BEDTIME 11/17/2016 12/14/2016 Inactive clonazepam 0.5 mg tablet RxNorm: 785461 TAKE 1 TABLET BY MOUTH TWICE DAILY 11/17/2016 11/22/2016 Inactive Plavix 75 mg tablet RxNorm: 875705 1 Tablet(s) PO QD 11/06/201604/09 Inactive [SAVINGS FOR NON-COVERED DRUGS -- BIN:00 3585, PCN: ASPROD1, Group: XXXXX, ID# [id number], Questions: . THIS IS NOT INSURANCE.] Plavix 75 mg tablet RxNorm: 529996 1 Tablet(s) PO QD 08/28/201611/05 Inactive [SAVINGS FOR NON-COVERED DRUGS -- BIN: 3585, PCN: ASPROD1, Group: XXXXX, ID# [id number], Questions: . THIS IS NOT INSURANCE.] Lidoderm 5 % topical patch RxNorm: 5855376 Application T OP 2 patches for 12hrs then off for 12hrs 08/28/2016 08/27/2016 Inactive clonazepam 0.5 mg tablet RxNorm: 092449 1 Tablet(s) PO BID 08/07/20 16 11/22/2016 Inactive pravastatin 20 mg tablet RxNorm: 597597 1 Tablet(s) PO QD 08/07/2016 11/04/2016 Inactive cyclobenzaprine 10 mg tablet RxNorm: 786838 1 Tablet(s) PO TID as needed for muscle spasm 08/07/2016 09/05/2016 Inactive [SAVINGS FOR NON -COVERED DRUGS -- BIN:458369, PCN: ASPROD1, Group: XXXXX, ID# [id number], Questions: . THIS IS NOT INSURANCE.] Plavix 75 mg tablet RxNorm: 517323 1 Tablet(s) PO QD 08/07/201608/27 Inactive [SAVINGS FOR NON-COVERED DRUGS -- BIN:00 3585, PCN: ASPROD1, Group: XXXXX, ID# [id number], Questions: . THIS IS NOT INSURANCE.] carvedilol 3.125 mg tablet RxNorm: 223200 1 Tablet(s) P O BID to replace 6.25mg dose 08/07/2016 02/02/2017 Inactive clonazepam 0.5 mg tablet RxNorm: 877521 1 Tablet(s) PO BID 07/04/2008/07/2016 Inactive Plavix 75 mg tablet RxNorm: 423414 1 TABLET(S) PO QD 06/20/201608/06 Inactive [SAVINGS FOR NON-COVERED DRUGS -- BIN:00 3585, PCN: ASPROD1, Group: XXXXX, ID# [id number], Questions: . THIS IS NOT INSURANCE.] clonazepam 0.5 mg tablet RxNorm: 149653 1 Tablet(s) PO BID 06/09/20 16 07/03/2016 Inactive pravastatin 20 mg tablet RxNorm: 645761 1 Tablet(s) PO QD 05/23/2016 08/06/2016 Inactive pravastatin 20 mg tablet RxNorm: 612748 1 Tablet(s) PO QD 05/23/2016 05/22/2016 Inactive carvedilol 3.125 mg tablet RxNorm: 739508 1 Tablet(s) P O BID to replace 6.25mg dose 05/10/2016 08/06/2016 Inactive carvedilol 3.125 mg tablet RxNorm: 847107 1 Tablet(s) P O BID to replace 6.25mg dose 05/10/2016 05/09/2016 Inactive clonazepam 0.5 mg tablet RxNorm: 346162 1 Tablet(s) PO BID 05/10/20 16 06/08/2016 Inactive carvedilol 6.25 mg tablet RxNorm: 067971 1 Tablet(s) PO QD 05/10/20 16 05/10/2016 Inactive simvastatin 40 mg tablet RxNorm: 393828 1 TABLET(S) PO QD 04/10/2016 05/09/2016 Inactive Medrol (Jose) 4 mg tablets in a dose pack RxNorm: 382063 Tablet(s) PO As Directed 01/13/2016 05/09/2016 Inactive cyclobenzaprine 10 mg tablet RxNorm: 595248 1 TABLET(S) PO TID NEEDED FOR SPASM 01/11/2016 03/10/2016 Inactive [SAVINGS FOR NON -COVERED DRUGS -- BIN:992127, PCN: ASPROD1, Group: XXXXX, ID# [id number], Questions: . THIS IS NOT INSURANCE.] Plavix 75 mg tablet RxNorm: 861215 1 Tablet(s) PO QD 12/30/201506/19 Inactive [SAVINGS FOR NON-COVERED DRUGS -- BIN: 3585, PCN: ASPROD1, Group: XXXXX, ID# [id number], Questions: . THIS IS NOT INSURANCE.] Ambien 5 mg tablet RxNorm: 697749 TAKE 1 TABLET BY MOUTH EVERY DAY AT BEDTIME 11/15/2015 11/17/2016 Inactive simvastatin 40 mg tablet RxNorm: 690138 1 Tablet(s) PO QD 10/11/2015 01/12/2019 Inactive simvastatin 40 mg tablet RxNorm: 636537 1 Tablet(s) PO QD 10/08/2015 10/10/2015 Inactive Ambien 5 mg tablet RxNorm: 790883 TAKE 1 TABLET BY MOUTH EVERY NIGHT AT BEDTIME 07/27/2015 11/15/2015 Inactive Plavix 75 mg tablet RxNorm: 961582 1 Tablet(s) PO QD 06/28/201512/29 Inactive [SAVINGS FOR NON-COVERED DRUGS -- BIN: 3585, PCN: ASPROD1, Group: XXXXX, ID# [id number], Questions: . THIS IS NOT INSURANCE.] Coreg 6.25 mg tablet RxNorm: 256040 1 TABLET(S) PO BID 04/19/2015 Inactive [SAVINGS FOR NON-COVERED DRUGS -- BIN:00 3585, PCN: ASPROD1, Group: XXXXX, ID# [id number], Questions: . THIS IS NOT INSURANCE.] simvastatin 40 mg tablet RxNorm: 796456 1 Tablet(s) PO QD 04/05/2015 04/04/2015 Inactive simvastatin 40 mg tablet RxNorm: 132430 1 Tablet(s) PO QD 04/05/2015 10/11/2015 Inactive Plavix 75 mg tablet RxNorm: 256521 1 TABLET(S) PO QD 03/22/201504/20 Inactive [SAVINGS FOR NON-COVERED DRUGS -- BIN:00 3585, PCN: ASPROD1, Group: XXXXX, ID# [id number], Questions: . THIS IS NOT INSURANCE.] Plavix 75 mg tablet RxNorm: 811652 1 Tablet(s) PO QD 03/22/201506/28 Inactive [SAVINGS FOR NON-COVERED DRUGS -- BIN:00 3585, PCN: ASPROD1, Group: XXXXX, ID# [id number], Questions: . THIS IS NOT INSURANCE.] Ambien 5 mg tablet RxNorm: 238738 1 Tablet(s) PO QHS 12/17/201407/28 Inactive [SAVINGS FOR NON-COVERED DRUGS -- BIN:00 3585, PCN: ASPROD1, Group: XXXXX, ID# [id number], Questions: . THIS IS NOT INSURANCE.] Coreg 6.25 mg tablet RxNorm: 561746 1 Tablet(s) PO BID 12/17/2014 Inactive [SAVINGS FOR NON-COVERED DRUGS -- BIN:00 3585, PCN: ASPROD1, Group: XXXXX, ID# XXXXXXX, Questions: . THIS IS NOT INSURANCE.] Plavix 75 mg tablet RxNorm: 206148 1 Tablet(s) PO QD 12/17/201403/16 Inactive [SAVINGS FOR NON-COVERED DRUGS -- BIN:00 3585, PCN: ASPROD1, Group: XXXXX, ID# XXXXXXX, Questions: . THIS IS NOT INSURANCE.] cyclobenzaprine 10 mg tablet RxNorm: 304182 1 Tablet(s) PO TID as needed for spasm 12/17/2014 03/16/2015 Inactive [SAVINGS FOR NON -COVERED DRUGS -- BIN:442399, PCN: ASPROD1, Group: XXXXX, ID# [id number], Questions: . THIS IS NOT INSURANCE.] Coreg 6.25 mg tablet RxNorm: 220933 1 Tablet(s) PO BID 10/21/201409/2014 Inactive [SAVINGS FOR NON-COVERED DRUGS -- BIN:00 3585, PCN: ASPROD1, Group: XXXXX, ID# [id number], Questions: . THIS IS NOT INSURANCE.] Plavix 75 mg tablet RxNorm: 128491 1 Tablet(s) PO QD 10/21/201412/16 Inactive [SAVINGS FOR NON-COVERED DRUGS -- BIN:00 3585, PCN: ASPROD1, Group: XXXXX, ID# XXXXXXX, Questions: . THIS IS NOT INSURANCE.] Plavix 75 mg tablet RxNorm: 602865 1 Tablet(s) PO QD Ne eds routine check up--last seen March 2012 09/21/2014 10/20/2014 Inactive [SAVINGS FOR UNINSURED PATIENTS -- BIN:288466, PCN: ASPROD1, Group: AME08, ID# [id number], Process claim through [employer], for questions: . THIS IS NOT INSURANCE.] Ambien 5 mg tablet RxNorm: 812509 1 Tablet(s) PO [facility] 09/21/201412/16 Inactive [SAVINGS FOR UNINSURED PATIENTS -- BIN:0 53187, PCN: ASPROD1, Group: AME08, ID# [id number], Process claim through [employer], for questions: . THIS IS NOT INSURANCE.] Coreg 6.25 mg tablet RxNorm: 013504 1 Tablet(s) PO BID 09/21/201411/2014 Inactive [SAVINGS FOR UNINSURED PATIENTS -- BIN:0 01613, PCN: ASPROD1, Group: AME08, ID# [id number], Process claim through [employer], for questions: . THIS IS NOT INSURANCE.] Plavix 75 mg tablet RxNorm: 032591 1 Tablet(s) PO QD Ne eds routine check up--last seen March 2012 08/04/2014 09/02/2014 Inactive [SAVINGS FOR UNINSURED PATIENTS -- BIN:713802, PCN: ASPROD1, Group: AME08, ID# [id number], Process claim through [email or web address], for questions: . THIS IS NOT INSURANCE.] Plavix 75 mg tablet RxNorm: 125951 1 Tablet(s) PO QD Ne eds routine check up--last seen March 2012 08/03/2014 08/03/2014 Inactive Protonix 40 mg tablet,delayed release RxNorm: 987816 1 Tablet(s ) PO QD 06/08/2014 02/17/2019 Inactive [SAVINGS FOR UNINSUR ED PATIENTS -- BIN:631644, PCN: ASPROD1, Group: AME08, ID# [id number], Process claim through [employer], for questions: . THIS IS NOT INSURANCE.] hydrocodone 10 mg-acetaminophen 325 mg tablet RxNorm: 556478 1 Tablet(s) PO BID as needed for pain 02/18/2014 03/31/2015 Inactive Coreg 6.25 mg tablet RxNorm: 518628 1 Tablet(s) PO BID 02/02/2014 Inactive Protonix 40 mg granules delayed-release packet RxNorm: 931312 1 Tablet(s) PO QD 01/13/2014 06/08/2014 Inactive Plavix 75 mg tablet RxNorm: 066532 1 Tablet(s) PO QD Ne eds routine check up--last seen March 2012 01/13/2014 08/02/2014 Inactive Plavix 75 mg tablet RxNorm: 051909 1 Tablet(s) PO QD Ne eds routine check up--last seen March 2012 12/09/2013 01/07/2014 Inactive Coreg 6.25 mg tablet RxNorm: 378024 1 Tablet(s) PO BID 12/09/2013 Inactive Cymbalta 60 mg capsule,delayed release RxNorm: 926403 1 Capsule (s) PO QD 10/31/2013 01/12/2014 Inactive Coreg 6.25 mg tablet RxNorm: 615561 1 Tablet(s) PO BID 10/31/2013 Inactive Plavix 75 mg tablet RxNorm: 867376 1 Tablet(s) PO QD Ne eds routine check up--last seen March 2012 10/31/2013 11/29/2013 Inactive Coreg 6.25 mg tablet RxNorm: 447515 1 Tablet(s) PO BID 10/31/2013 Inactive atorvastatin 40 mg tablet RxNorm: 896731 1 Tablet(s) PO QD 10/31/19 14 03/31/2015 Inactive Plavix 75 mg tablet RxNorm: 247377 1 Tablet(s) PO QD Ne eds routine check up--last seen March 2012 09/23/2013 10/30/2013 Inactive cyclobenzaprine 10 mg tablet RxNorm: 406913 1 Tablet(s) PO TID as needed for spasm 09/23/2013 No Stop Date Active cyclobenzaprine 10 mg tablet RxNorm: 885003 1 Tablet(s) PO TID as needed for spasm 07/04/2013 09/22/2013 Inactive atorvastatin 40 mg tablet RxNorm: 030535 1 Tablet(s) PO QD 06/23/20 13 10/30/2013 Inactive atorvastatin 40 mg tablet RxNorm: 614114 1 Tablet(s) PO QD 04/22/20 13 06/22/2013 Inactive Nucynta 50 mg tablet RxNorm: 286648 1-2 Tablet(s) PO Q6H as nee ded for pain 01/01/2013 01/12/2014 Inactive Ambien 5 mg tablet RxNorm: 077413 1 Tablet(s) PO QHS 10/16/201201/13 Inactive Plavix 75 mg tablet RxNorm: 945929 1 Tablet(s) PO QD 09/19/201209/13 Inactive Protonix 40 mg tablet,delayed release RxNorm: 195711 1 Tablet(s ) PO QD 09/19/2012 09/18/2012 Inactive simvastatin 40 mg tablet RxNorm: 246649 1 Tablet(s) PO QD 09/19/2012 02/23/2013 Inactive Protonix 40 mg tablet,delayed release RxNorm: 001458 1 Tablet(s ) PO QD 09/19/2012 09/13/2013 Inactive Ultram 50 mg tablet RxNorm: 606121 1-2 Tablet(s) PO QID as need ed for pain 09/19/2012 02/26/2017 Inactive propranolol 80 mg tablet RxNorm: 886003 1 Tablet(s) PO QHS 09/19/19 13 09/18/2012 Inactive Cymbalta 60 mg capsule,delayed release RxNorm: 421370 1 Capsule (s) PO QD 09/19/2012 09/18/2012 Inactive Cymbalta 60 mg capsule,delayed release RxNorm: 386867 1 Capsule (s) PO QD 09/19/2012 03/17/2013 Inactive propranolol 80 mg tablet RxNorm: 018438 1 Tablet(s) PO QHS 09/19/19 13 02/23/2013 Inactive hydrocodone-acetaminophen 10 mg-325 mg tablet RxNorm: 003220 2 1-2 Tablet(s) PO QID 07/25/2012 02/23/2013 Inactive Ambien 10 mg tablet RxNorm: 193008 1 Tablet(s) PO QHS as needed for sleep 07/10/2012 01/27/2013 Inactive propranolol 80 mg tablet RxNorm: 557893 1 Tablet(s) PO QHS 05/13/20 12 09/18/2012 Inactive hydrocodone-acetaminophen 10 mg-325 mg tablet RxNorm: 818428 2 1-2 Tablet(s) PO QID 05/02/2012 No Stop Date Active Restoril 15 mg Cap RxNorm: 440975 1-2 Capsule(s) PO QHS 05/02/2012 Inactive propranolol 80 mg tablet RxNorm: 560536 1 Tablet(s) PO QHS 05/02/20 12 05/12/2012 Inactive Chantix Starting Month Box 0.5 mg (11)-1 mg (42) Tabs in a Dose Pack RxNorm: 716537 Tablet(s) PO As Directed 04/01/2012 01/27/2013 Inactive simvastatin 40 mg tablet RxNorm: 522907 1 Tablet(s) PO QD 03/28/2012 09/18/2012 Inactive simvastatin 40 mg Tab RxNorm: 677712 1 Tablet(s) PO QD 03/22/201207/2012 Inactive Effient 10 mg Tab RxNorm: 697372 1 Tablet(s) PO QD 03/22/2012 012 Inactive Prilosec 40 mg Capsule, delayed release RxNorm: 519872 1 Capsul e(s) PO QD 03/22/2012 09/18/2012 Inactive Prilosec 40 mg Capsule, delayed release RxNorm: 575558 1 Capsul e(s) PO QD 03/19/2012 03/21/2012 Inactive Cymbalta 60 mg capsule,delayed release RxNorm: 226686 1 Capsule (s) PO QD 03/04/2012 08/30/2012 Inactive hydrocodone-acetaminophen 10 mg-325 mg Tab RxNorm: 3467531 1-2 T ablet(s) PO QID 01/23/2012 No Stop Date Active Cymbalta 60 mg Capsule, delayed release RxNorm: 051108 1 Capsul e(s) PO QD 01/23/2012 03/03/2012 Inactive Cipro 500 mg Tab RxNorm: 179618 1 Tablet(s) PO BID 12/20/2011 012 Inactive Cymbalta 60 mg Capsule, delayed release RxNorm: 069451 1 Capsul e(s) PO QD 12/13/2011 01/22/2012 Inactive nortriptyline 75 mg Cap RxNorm: 357302 1 Capsule(s) PO QHS 11/29/1904/02/2012 Inactive Cymbalta 60 mg Cap RxNorm: 931706 1 Capsule(s) PO QD 10/24/201112/11 Inactive propranolol 80 mg Tab RxNorm: 867835 1 Tablet(s) PO QHS 10/24/2011 Inactive hydrocodone-acetaminophen 10 mg-325 mg Tab RxNorm: 6805094 1-2 T ablet(s) PO QID 09/29/2011 No Stop Date Active hydrocodone-acetaminophen 10 mg-325 mg Tab RxNorm: 0882762 1-2 T ablet(s) PO QID 07/25/2011 No Stop Date Active hydrocodone-acetaminophen 10 mg-325 mg Tab RxNorm: 1158635 1-2 T ablet(s) PO QID 02/14/2011 No Stop Date Active Prilosec 40 mg Cap RxNorm: 931750 1 Capsule(s) PO 01/03/2011 04/28/20 19 Inactive nortriptyline 75 mg Cap RxNorm: 132392 1 Capsule(s) PO QHS 01/04/20 11 07/01/2011 Inactive Neurontin 600 mg Tab RxNorm: 820194 1 Tablet(s) PO QHS 12/08/201011/2011 Inactive hydrocodone-acetaminophen 5 mg-500 mg Tab RxNorm: 449457 2 Tablet(s) PO Q4-6H prn 10/20/2010 01/08/2011 Inactive Diltzac ER 240 mg Cap RxNorm: 724092 1 Capsule(s) PO QD 07/14/2010 Inactive Nortriptyline 75 mg Cap RxNorm: 294637 1 Capsule(s) PO QHS 05/09/20 10 01/12/2019 Inactive Neurontin 600 mg Tab RxNorm: 645536 1 Tablet(s) PO QD 03/17/201012/17 Inactive Nortriptyline 75 mg Cap RxNorm: 221240 1 Capsule(s) PO 01/12/2010 Inactive Nortriptyline 50 mg Cap RxNorm: 399268 1 Capsule(s) PO QHS 01/13/20 10 01/11/2010 Inactive Diltzac ER 240 mg Cap RxNorm: 776685 1 Capsule(s) PO QD 12/06/2009 Inactive aspirin 81 mg Tab RxNorm: 946340 1 Tablet(s) PO QD No Start Date Active Vitamin D3 2,000 unit tablet RxNorm: 941296 1 Tablet(s) PO QD No Star t Date Active Lyrica 75 mg capsule RxNorm: 774422 1 Capsule(s) PO QHS No Start Date Active ivkpldrdl-hazlvuaxz-mcdlpk complex no.233 oral RxNorm: oral No Start Date Active primidone 50 mg tablet RxNorm: 300393 2 Tablet(s) PO BID No Start Date Active Prilosec 40 mg Capsule, delayed release RxNorm: 496343 1 Capsul e(s) PO QD No Start Date 03/18/2012 Inactive Prilosec 20 mg Cap RxNorm: 155394 1 Capsule(s) PO QHS No Start Date 0 01/02/2011 Inactive primidone 50 mg tablet RxNorm: 355079 1/2 Tablet(s) PO QHS for 1week then go full tab if needed No Start Date 05/01/2017 Inactive ProAir HFA 90 mcg/actuation aerosol inhaler RxNorm: 641725 2 Puff(s) INH Q4H as needed No Start Date 10/29/2017 Inactive clonazepam 0.5 mg tablet RxNorm: 434446 1/2 Tablet(s) PO BID No Sta rt Date 02/12/2017 Inactive Pepcid AC 10 mg Tab RxNorm: 274116 1 Tablet(s) PO QAM No Start Date 0 02/19/2011 Inactive Coreg Oral RxNorm: Oral No Start Date 01/12/2014 Inactive primidone 50 mg tablet RxNorm: 366982 1/2 Tablet(s) PO QD for 7 days then increase to 1 tablet at bedtime No Start Date 01/08/2017 Inactive Medrol (Jose) 4 mg tablets in a dose pack RxNorm: 498132 Tablet(s) PO As Directed No Start Date 01/12/2016 Inactive Plavix 75 mg tablet RxNorm: 803105 1 Tablet(s) PO QD No Start Date Inactive cyclobenzaprine 10 mg tablet RxNorm: 866138 1 Tablet(s) PO TID as needed for spasm No Start Date 07/03/2013 Inactive Bevespi Aerosphere 9 mcg-4.8 mcg HFA aerosol inhaler RxNorm: 2287701 2 Puff(s) INH BID No Start Date 02/18/2019 Inactive tramadol 50 mg tablet RxNorm: 959099 1-2 Tablet(s) PO TID as ne eded for pain No Start Date 01/12/2019 Inactive clonazepam 1 mg tablet RxNorm: 479475 1 Tablet(s) PO QAM No Start D ate 09/18/2018 Inactive hydrocodone-acetaminophen 5 mg-500 mg Tab RxNorm: 587634 2 Tablet(s) PO Q4-6H prn No Start Date 10/19/2010 Inactive lisinopril 20 mg Tab RxNorm: 719532 1/2 Tablet(s) PO QD No Start Da te 03/12/2011 Inactive Protonix 40 mg tablet,delayed release RxNorm: 137251 1 Tablet(s ) PO QD No Start Date 06/07/2014 Inactive Lipitor Oral RxNorm: Oral No Start Date 01/12/2014 Inactive primidone 50 mg tablet RxNorm: 292794 2 Tablet(s) PO QAM and 1 tablet at HS No Start Date 02/17/2019 Inactive hydrocodone-acetaminophen 10 mg-325 mg Tab RxNorm: 3342399 1-2 T ablet(s) PO QID No Start Date 02/13/2011 Inactive Ultram 50 mg tablet RxNorm: 996078 1-2 Tablet(s) PO QID as need ed for pain No Start Date 09/18/2012 Inactive Effient 10 mg Tab RxNorm: 192063 1 Tablet(s) PO QD No Start Date 01/2012 Inactive Bevespi Aerosphere 9 mcg-4.8 mcg HFA aerosol inhaler RxNorm: 0320029 2 Puff(s) INH BID No Start Date 10/29/2017 Inactive Neurontin Oral RxNorm: Oral No Start Date 01/12/2010 Inactive primidone 50 mg tablet RxNorm: 565879 1 Tablet(s) PO QD No Start Da te 01/12/2019 Inactive Chantix Starting Month Box 0.5 mg (11)-1 mg (42) Tabs in a Dose Pack RxNorm: 470677 Tablet(s) PO No Start Date 03/31/2012 Inactive atenolol 25 mg Tab RxNorm: 777164 1 Tablet(s) PO QD No Start Date 02/2012 Inactive Neurontin 600 mg Tab RxNorm: 797339 1 Tablet(s) PO QD No Start Date 0 03/16/2010 Inactive Nucynta 50 mg tablet RxNorm: 077504 1-2 Tablet(s) PO Q6H as nee ded for pain No Start Date 12/31/2012 Inactive simvastatin 40 mg Tab RxNorm: 576121 1 Tablet(s) PO QD No Start Date 03/21/2012 Inactive Medication Administered No Medication Administered data Immunizations Vaccine Codes Date Status Influenza CVX: 135 07/04/2017 Complete Results Observation Observation Code Item Item Code Result Date S [facility] Location COMPLETE BLOOD COUNT [id number] WBC 4.9 10e9/L 09/04/20 18 Unknown COMPLETE BLOOD COUNT [id number] RBC 4.42 10e12/L 2017 Unknown COMPLETE BLOOD COUNT 6895445 HEMOGLOBIN 13.4 g/dL 09/04/20 18 Unknown COMPLETE BLOOD COUNT [id number] HEMATOCRIT 40.5 % 09/04/20 18 Unknown COMPLETE BLOOD COUNT 6164625 MCV 91.6 fL 8 Unknown COMPLETE BLOOD COUNT 0000739 MCH 30.3 pg 8 Unknown COMPLETE BLOOD COUNT 6986887 MCHC 33.1 g/dL 8 Unknown COMPLETE BLOOD COUNT 4741268 PLATELET COUNT 224 10e9/L Unknown COMPLETE BLOOD COUNT 2517480 Mean Plt Volume 9.9 fL Unknown COMPLETE BLOOD COUNT 3250641 Neut Auto 60.8 % 8 Unknown COMPLETE BLOOD COUNT 6587450 Lymph Auto 26.8 % 09/04/20 18 Unknown COMPLETE BLOOD COUNT 8523695 [place] Auto 10.4 % 8 Unknown COMPLETE BLOOD COUNT 6347955 RDW 12.8 % 8 Unknown COMPLETE BLOOD COUNT 0216814 Eos Auto 1.6 % 8 Unknown COMPLETE BLOOD COUNT 0319154 Baso Auto 0.4 % 8 Unknown COMPLETE BLOOD COUNT 1975216 Neutrophil Abs 2.98 10e9/L Unknown COMPLETE BLOOD COUNT [id number] Lymphocyte Abs 1.31 10e9/L Unknown COMPLETE BLOOD COUNT [id number] Monocyte Abs 0.51 10e9/L 08/17 Unknown COMPLETE BLOOD COUNT [id number] Eosinophil Abs 0.08 10e9/L Unknown COMPLETE BLOOD COUNT 3945929 RDW-SD 41.6 fL 8 Unknown COMPLETE BLOOD COUNT 8669374 Basophil Abs 0.02 10e9/L 08/17 Unknown COMPREHENSIVE METABOLIC 21114 AST 16 U/L 2017 Unknown COMPREHENSIVE METABOLIC 97399 ALT 8 U/L 2017 Unknown COMPREHENSIVE METABOLIC 39686 BUN 12 mg/dL 2017 Unknown COMPREHENSIVE METABOLIC 68025 ALBUMIN 4.4 g/dL 2017 Unknown COMPREHENSIVE METABOLIC 59780 CHLORIDE 107 mmol/L 09/04 Unknown COMPREHENSIVE METABOLIC 30226 Bili Total 1.0 mg/dL 09/04 Unknown COMPREHENSIVE METABOLIC 13427 ALK PHOS 58 U/L 2017 Unknown COMPREHENSIVE METABOLIC 53136 SODIUM 142 mmol/L 09/04 Unknown COMPREHENSIVE METABOLIC 84229 CREATININE 0.97 mg/dL 08/17 Unknown COMPREHENSIVE METABOLIC 68396 CALCIUM 9.2 mg/dL 2017 Unknown COMPREHENSIVE METABOLIC 58648 POTASSIUM 4.6 mmol/L 09/04 Unknown COMPREHENSIVE METABOLIC 39754 Total Protein 6.5 g/dL Unknown COMPREHENSIVE METABOLIC 00022 Glucose 96 mg/dL 2017 Unknown COMPREHENSIVE METABOLIC 49643 Bicarbonate 29 mmol/L 08/17 Unknown COMPREHENSIVE METABOLIC 27232 AGAP 6 mmol/L 2017 Unknown LIPID GROUP 13402 Cholesterol 182 mg/dL 09/04/2018 Unkno wn LIPID GROUP 04750 Triglyceride 84 mg/dL 09/04/2018 Unkn own LIPID GROUP 08281 HDL CHOLESTEROL 76 mg/dL 09/04/2018 U nknown LIPID GROUP 75292 Chol/HDL Ratio 2.39 ratio 09/04/2018 U nknown LIPID GROUP 92352 NON-HDL Chol 106 mg/dL 09/04/2018 Unkn own LIPID GROUP 65968 LDL Cholesterol 89 mg/dL 09/04/2018 U nknown GFR CALC 0934581 GFR Non Afr Amr >60 mL/min 09/04/2018 Un known GFR CALC 5162423 GFR Afr Amr >60 mL/min 09/04/2018 Unknow n THYROID STIMULATING HORMONE 25672 TSH 0.713 uIU/mL 09/04/2018 Unknown PSA EQUIMOLAR BARBIE 56594 PSA Total 0.66 ng/mL 8 Unknown A FOOD C P 9645992 [place] Cl Class 0 11/17/2017 Unknown A FOOD C P 5338392 [place] Ct <0.35 kU/L 11/17/2017 Unknow n A FOOD C P 7407525 [place] Cl Class 0 11/17/2017 Unkn own A FOOD C P [id number] [place] Ct <0.35 kU/L 11/17/2017 Unk nown A FOOD C P 3471661 [place] White Cl Class 0 11/17/2017 Unkno wn A FOOD C P 8888373 Egg White Ct <0.35 kU/L 11/17/2017 Unkn own A FOOD C P 1815638 Egg Yolk Cl Class 0 11/17/2017 Unknow n A FOOD C P 8589478 Egg Yolk Ct <0.35 kU/L 11/17/2017 Unkno wn A FOOD C P 6471773 Cow Milk Cl Class 0 11/17/2017 Unknow n A FOOD C P 5261329 Cow Milk Ct <0.35 kU/L 11/17/2017 Unkno wn A FOOD C P 5963464 Peanut Cl Class 0 11/17/2017 Unknown A FOOD C P 2047463 Peanut Ct <0.35 kU/L 11/17/2017 Unknown A FOOD C P 7264047 Shrimp Cl Class 0 11/17/2017 Unknown A FOOD C P 4879265 Shrimp Ct <0.35 kU/L 11/17/2017 Unknown A FOOD C P 2232780 [place] Cl Class 0 11/17/2017 Unknown A FOOD C P 6278287 [place] Ct <0.35 kU/L 11/17/2017 Unknow n A FOOD C P 7257790 [place] Cl Class 0 11/17/2017 Unknown A FOOD C P 1167928 Wheat Ct <0.35 kU/L 11/17/2017 Unknown A FOOD C P 9908755 Potato Cl Class 0 11/17/2017 Unknown A FOOD C P 3493763 Potato Ct <0.35 kU/L 11/17/2017 Unknown A FOOD C P 0813630 Beef Cl Class 2 11/17/2017 Unknown A FOOD C P 3281701 Beef Ct 0.88 kU/L 11/17/2017 Unknown A FOOD C P 6713539 [place] Cl Class 0 11/17/2017 Unknown A FOOD C P [id number] [place] Ct <0.35 kU/L 11/17/2017 Unknown A FOOD C P 1749576 P[place] Cl Class 0 11/17/2017 Unknown A FOOD C P 1659394 [place] Ct <0.35 kU/L 11/17/2017 Unknown A FOOD C P 2268454 [place] Cl Class 0 11/17/2017 Unknown A FOOD C P 9557303 [place] Ct <0.35 kU/L 11/17/2017 Unknown A FOOD C P 0689671 [place] Cl Class 0 11/17/2017 Unkn own A FOOD C P 3013242 [place] Ct <0.35 kU/L 11/17/2017 Unk nown A FOOD C P [id number] [place] Cl Class 0 11/17/2017 Unknown A FOOD C P 2710216 [place] Ct <0.35 kU/L 11/17/2017 Unknown A FOOD C P 8424240 [place] Cl Class 0 11/17/2017 Unknown A FOOD C P 4831863 [place] Ct <0.35 kU/L 11/17/2017 Unknown A FOOD C P 0460939 [place] CL Class 0 11/17/2017 Unknown A FOOD C P 8113576 [place] <0.35 kU/L 11/17/2017 Unknown A FOOD C P 6738083 [place] Cl Class 0 11/17/2017 Unknown A FOOD C P 5728177 [place] Ct <0.35 kU/L 11/17/2017 Unknown A FOOD C P 2154016 Oat Cl Class 0 11/17/2017 Unknown A FOOD C P 4384140 Oat Ct <0.35 kU/L 11/17/2017 Unknown A FOOD C P 6850105 [place] Cl Class 0 11/17/2017 Unknown A FOOD C P 1183474 [place] Ct <0.35 kU/L 11/17/2017 Unknown A FOOD C P 6564645 [place] CL Class 0 11/17/2017 Un known A FOOD C P 8491303 [place] Ct <0.35 kU/L 11/17/2017 U nknown A FOOD C P 3544469 [place] Cl Class 0 11/17/2017 Unknown A FOOD C P 2880891 [place] Ct <0.35 kU/L 11/17/2017 Unknown A FOOD C P 3943935 [place] Meat Cl Class 0 11/17/2017 Unkn own A FOOD C P 8248887 [place] Ct <0.35 kU/L 11/17/2017 Unk nown A NUTS PNL 2979839 Pe[place] Cl Class 0 11/17/2017 Unknown A NUTS PNL 2488048 Peanut Ct <0.35 kU/L 11/17/2017 Unknown A NUTS PNL 7439725 [place] Cl Class 0 11/17/2017 Unk nown A NUTS PNL 0335987 [place] [facility] <0.35 kU/L 11/17/2017 Un known A NUTS PNL 7783004 [place] Cl Class 0 11/17/2017 Unkn own A NUTS PNL 7630967 [place] Ct <0.35 kU/L 11/17/2017 Unk nown A NUTS PNL 0631838 [place] Cl Class 0 11/17/2017 Unknown A NUTS PNL 0226351 [place] Ct <0.35 kU/L 11/17/2017 Unknown A NUTS PNL 0370871 [place] Cl Class 0 11/17/2017 Unknow n A NUTS PNL 0122442 [place] Ct <0.35 kU/L 11/17/2017 Unkno wn A NUTS PNL 0251175 [place] Cl Class 0 11/17/2017 Unkno wn A NUTS PNL 8816700 [place] Ct <0.35 kU/L 11/17/2017 Unkn own A NUTS PNL 0481086 [place] Cl Class 0 11/17/2017 Unknown A NUTS PNL 7795966 [place] Ct <0.35 kU/L 11/17/2017 Unknown A NUTS PNL 6021506 [place] Cl Class 0 11/17/2017 Unkno wn A NUTS PNL 6694137 [place] Ct <0.35 kU/L 11/17/2017 Unkn own A NUTS PNL 2223161 Allergen Interp See Note 11/17/2017 Un known A FRT/VG P [id number] [place] Cl Class 0 11/17/2017 Unkn own A FRT/VG P 5044055 [place] Ct <0.35 kU/L 11/17/2017 Unk nown A FRT/VG P 1303728 [place] Cl Class 0 11/17/2017 Unknown A FRT/VG P 6164389 [place] Ct <0.35 kU/L 11/17/2017 Unknown A FRT/VG P 4384370 [place] Cl Class 0 11/17/2017 Unkn own A FRT/VG P [id number] [place] Ct <0.35 kU/L 11/17/2017 Unk nown A FRT/VG P 0283738 [place] Cl Class 0 11/17/2017 Unknown A FRT/VG P 1728718 [place] Ct <0.35 kU/L 11/17/2017 Unknown A FRT/VG P 8347309 [place] Cl Class 0 11/17/2017 Unknown A FRT/VG P 9777983 [place] Ct <0.35 kU/L 11/17/2017 Unknown A FRT/VG P 7540271 [place] Cl Class 1 11/17/2017 Unknown A FRT/VG P 2451090 [place] Ct 0.48 kU/L 11/17/2017 Unknown A FRT/VG P 9253944 [place] Cl Class 0 11/17/2017 Unk nown A FRT/VG P 4125097 [place] Ct <0.35 kU/L 11/17/2017 Un known A FRT/VG P 6255511 [place] Cl Class 0 11/17/2017 Unk nown A FRT/VG P 3915022 [place] Ct <0.35 kU/L 11/17/2017 Un known A FRT/VG P 5081057 [place] Cl Class 0 11/17/2017 Unknown A FRT/VG P 0091073 [place] Ct <0.35 kU/L 11/17/2017 Unknown A FRT/VG P 3672726 [place] Cl Class 0 11/17/2017 Unknown A FRT/VG P 7964558 [place] Ct <0.35 kU/L 11/17/2017 Unknown A FRT/VG P 8191596 [place] Cl Class 0 11/17/2017 Unkn own A FRT/VG P 5550176 [place] Ct <0.35 kU/L 11/17/2017 Unk nown A FRT/VG P 2046546 [place]t [place] Cl Class 0 11/17/2017 Unkn own A FRT/VG P 6012872 Swt [place] Ct <0.35 kU/L 11/17/2017 Unk nown THYROID STIMULATING HORMONE 80165 TSH 1.371 uIU/mL 09/03/2017 Unknown FREE T4 23091 T4 Free 1.26 ng/dL 09/03/2017 Unknown ASSAY TRIIODOTHYRONINE (T3) 23376 T3 Total 0.9 ng/mL Unknown COMPLETE BLOOD COUNT 3520751 WBC 5.9 10e9/L 07/31/20 17 Unknown COMPLETE BLOOD COUNT 1794366 RBC 4.64 10e12/L 2016 Unknown COMPLETE BLOOD COUNT 1801872 HEMOGLOBIN 14.2 g/dL 07/31/20 17 Unknown COMPLETE BLOOD COUNT 2574560 HEMATOCRIT 42.1 % 07/31/20 17 Unknown COMPLETE BLOOD COUNT 4021665 MCV 90.7 fL 7 Unknown COMPLETE BLOOD COUNT 8969107 MCH 30.6 pg 7 Unknown COMPLETE BLOOD COUNT 2435285 MCHC 33.7 g/dL 7 Unknown COMPLETE BLOOD COUNT 4409332 PLATELET COUNT 195 10e9/L Unknown COMPLETE BLOOD COUNT 1237861 Mean Plt Volume 10.0 fL Unknown COMPLETE BLOOD COUNT 9438532 Neut Auto 47.5 % 7 Unknown COMPLETE BLOOD COUNT 7147559 Lymph Auto 37.4 % 07/31/20 17 Unknown COMPLETE BLOOD COUNT 7389418 [place] Auto 11.7 % 7 Unknown COMPLETE BLOOD COUNT 9153542 Eos Auto 3.2 % 7 Unknown COMPLETE BLOOD COUNT 4376100 RDW 12.8 % 7 Unknown COMPLETE BLOOD COUNT 8745765 Baso Auto 0.2 % 7 Unknown COMPLETE BLOOD COUNT 0864820 Neutrophil Abs 2.80 10e9/L Unknown COMPLETE BLOOD COUNT 1015792 Lymphocyte Abs 2.21 10e9/L Unknown COMPLETE BLOOD COUNT 6399703 Monocyte Abs 0.69 10e9/L 07/18 Unknown COMPLETE BLOOD COUNT 8613067 Eosinophil Abs 0.19 10e9/L Unknown COMPLETE BLOOD COUNT 7418714 RDW-SD 41.6 fL 7 Unknown COMPLETE BLOOD COUNT 6462772 Basophil Abs 0.01 10e9/L 07/18 Unknown LIPID GROUP 33703 Cholesterol 186 mg/dL 07/31/2017 Unkno wn LIPID GROUP 31405 Triglyceride 129 mg/dL 07/31/2017 Unkn own LIPID GROUP 15331 HDL CHOLESTEROL 79 mg/dL 07/31/2017 U nknown LIPID GROUP 32672 Chol/HDL Ratio 2.35 ratio 07/31/2017 U nknown LIPID GROUP 95437 NON-HDL Chol 107 mg/dL 07/31/2017 Unkn own LIPID GROUP 57590 LDL Cholesterol 81 mg/dL 07/31/2017 U nknown GFR CALC 0999437 GFR Non Afr Amr >60 mL/min 07/31/2017 Un known GFR CALC 7906011 GFR Afr Amr >60 mL/min 07/31/2017 Unknow n COMPREHENSIVE METABOLIC 42667 AST 19 U/L 2016 Unknown COMPREHENSIVE METABOLIC 54132 ALT 12 U/L 2016 Unknown COMPREHENSIVE METABOLIC 23775 BUN 15 mg/dL 2016 Unknown COMPREHENSIVE METABOLIC 50326 ALBUMIN 4.4 g/dL 2016 Unknown COMPREHENSIVE METABOLIC 60745 CHLORIDE 102 mmol/L 07/31 Unknown COMPREHENSIVE METABOLIC 99650 Bili Total 0.9 mg/dL 07/31 Unknown COMPREHENSIVE METABOLIC 80902 ALK PHOS 53 U/L 2016 Unknown COMPREHENSIVE METABOLIC 72106 SODIUM 138 mmol/L 07/31 Unknown COMPREHENSIVE METABOLIC 97264 CREATININE 1.06 mg/dL 07/18 Unknown COMPREHENSIVE METABOLIC 03280 CALCIUM 9.3 mg/dL 2016 Unknown COMPREHENSIVE METABOLIC 59810 POTASSIUM 4.0 mmol/L 07/31 Unknown COMPREHENSIVE METABOLIC 08818 Total Protein 6.8 g/dL Unknown COMPREHENSIVE METABOLIC 96261 Glucose 86 mg/dL 2016 Unknown COMPREHENSIVE METABOLIC 81137 Bicarbonate 28 mmol/L 07/18 Unknown COMPREHENSIVE METABOLIC 37273 AGAP 8 mmol/L 2016 Unknown COMPREHENSIVE METABOLIC 69614 AST 18 U/L 2015 Unknown COMPREHENSIVE METABOLIC 57404 ALT 9 U/L 2015 Unknown COMPREHENSIVE METABOLIC 65605 BUN 11 mg/dL 2015 Unknown COMPREHENSIVE METABOLIC 01065 ALBUMIN 4.2 g/dL 2015 Unknown COMPREHENSIVE METABOLIC 82715 CHLORIDE 104 mmol/L 05/19 Unknown COMPREHENSIVE METABOLIC 04940 Bili Total 1.2 mg/dL 05/19 Unknown COMPREHENSIVE METABOLIC 31057 ALK PHOS 54 U/L 2015 Unknown COMPREHENSIVE METABOLIC 78325 SODIUM 140 mmol/L 05/19 Unknown COMPREHENSIVE METABOLIC 86277 CREATININE 1.03 mg/dL 10/2015 Unknown COMPREHENSIVE METABOLIC 80284 CALCIUM 9.3 mg/dL 2015 Unknown COMPREHENSIVE METABOLIC 85894 POTASSIUM 4.9 mmol/L 05/19 Unknown COMPREHENSIVE METABOLIC 01071 Total Protein 6.7 g/dL Unknown COMPREHENSIVE METABOLIC 93512 Glucose 92 mg/dL 2015 Unknown COMPREHENSIVE METABOLIC 01062 Bicarbonate 28 mmol/L 10/2015 Unknown COMPREHENSIVE METABOLIC 12262 AGAP 8 mmol/L 2015 Unknown THYROID STIMULATING HORMONE 67649 TSH 1.545 uIU/mL 05/19/2016 Unknown GFR CALC 4043862 GFR Non Afr Amr >60 mL/min 05/19/2016 Un known GFR CALC 0865884 GFR Afr Amr >60 mL/min 05/19/2016 Unknow n VITAMIN B 12 17326 VITAMIN B12 298 pg/mL 05/19/2016 Unkn own COMPLETE BLOOD COUNT 7298821 WBC 5.2 10e9/L 05/19/20 16 Unknown COMPLETE BLOOD COUNT [id number] RBC 4.34 10e12/L 2015 Unknown COMPLETE BLOOD COUNT 6358228 HEMOGLOBIN 12.9 g/dL 05/19/20 16 Unknown COMPLETE BLOOD COUNT 5580432 HEMATOCRIT 38.9 % 05/19/20 16 Unknown COMPLETE BLOOD COUNT 1812270 MCV 89.6 fL 6 Unknown COMPLETE BLOOD COUNT 4999274 MCH 29.7 pg 6 Unknown COMPLETE BLOOD COUNT 3202196 MCHC 33.2 g/dL 6 Unknown COMPLETE BLOOD COUNT 9624858 PLATELET COUNT 200 10e9/L 10/2015 Unknown COMPLETE BLOOD COUNT 0399631 Mean Plt Volume 10.1 fL 10/2015 Unknown COMPLETE BLOOD COUNT 0073041 Neut Auto 45.4 % 6 Unknown COMPLETE BLOOD COUNT 7283774 Lymph Auto 35.6 % 05/19/20 16 Unknown COMPLETE BLOOD COUNT 5562875 [place] Auto 11.9 % 6 Unknown COMPLETE BLOOD COUNT 0112499 RDW 12.7 % 6 Unknown COMPLETE BLOOD COUNT 1922101 Eos Auto 6.7 % 6 Unknown COMPLETE BLOOD COUNT 6371534 Baso Auto 0.4 % 6 Unknown COMPLETE BLOOD COUNT 2694389 Neutrophil Abs 2.36 10e9/L Unknown COMPLETE BLOOD COUNT 9694665 Lymphocyte Abs 1.85 10e9/L Unknown COMPLETE BLOOD COUNT 4605618 Monocyte Abs 0.62 10e9/L 10/2015 Unknown COMPLETE BLOOD COUNT 4923502 Eosinophil Abs 0.35 10e9/L Unknown COMPLETE BLOOD COUNT 4648583 RDW-SD 40.6 fL 6 Unknown COMPLETE BLOOD COUNT 7480428 Basophil Abs 0.02 10e9/L 10/2015 Unknown LIPID GROUP 15878 Cholesterol 197 mg/dL 05/19/2016 Unkno wn LIPID GROUP 80155 Triglyceride 92 mg/dL 05/19/2016 Unkn own LIPID GROUP 08295 HDL CHOLESTEROL 58 mg/dL 05/19/2016 U nknown LIPID GROUP 42417 Chol/HDL Ratio 3.40 ratio 05/19/2016 U nknown LIPID GROUP 32479 NON-HDL Chol 139 mg/dL 05/19/2016 Unkn own LIPID GROUP 39870 LDL Cholesterol 121 mg/dL 05/19/2016 U nknown FREE T4 12927 T4 Free 1.19 ng/dL 05/19/2016 Unknown COMPREHENSIVE METABOLIC 32885 AST 19 U/L 2014 Unknown COMPREHENSIVE METABOLIC 00975 ALT 10 IU/L 2014 Unknown COMPREHENSIVE METABOLIC 89201 BUN 20 MG/DL 2014 Unknown COMPREHENSIVE METABOLIC 06184 ALBUMIN 4.4 GM/DL 2014 Unknown COMPREHENSIVE METABOLIC 54819 CHLORIDE 104 MMOL/L 04/05 Unknown COMPREHENSIVE METABOLIC 66083 BILI TOT 2.2 MG/DL 2014 Unknown COMPREHENSIVE METABOLIC 05707 ALK PHOS 55 U/L 2014 Unknown COMPREHENSIVE METABOLIC 21955 SODIUM 138 MMOL/L 04/05 Unknown COMPREHENSIVE METABOLIC 98705 CREATININE 1.04 MG/DL 03/18 Unknown COMPREHENSIVE METABOLIC 36449 CALCIUM 9.3 MG/DL 2014 Unknown COMPREHENSIVE METABOLIC 45673 POTASSIUM 4.5 MMOL/L 04/05 Unknown COMPREHENSIVE METABOLIC 51947 PROT TOT 6.7 GM/DL 2014 Unknown COMPREHENSIVE METABOLIC 69036 Glucose 77 MG/DL 2014 Unknown COMPREHENSIVE METABOLIC 05341 BICARB 25 MMOL/L 2014 Unknown COMPREHENSIVE METABOLIC 14780 ANION GAP 9 MEQ/L 2014 Unknown GFR CALC 7234188 GFR AA >60 ML/MIN 04/05/2015 Unknown GFR CALC 0051860 GFR NON-AA >60 ML/MIN 04/05/2015 Unknown LIPID GROUP 43814 HDL TEST 60 MG/DL 04/05/2015 Unknown LIPID GROUP 04180 TRIG 70 MG/DL 04/05/2015 Unknown LIPID GROUP 10210 TEST LDL 137 MG/DL 04/05/2015 Unknown LIPID GROUP 09463 CHOL 211 MG/DL 04/05/2015 Unknown LIPID GROUP 64811 RCHOL/HDL 3.52 RATIO 04/05/2015 Unknow n LIPID GROUP 50024 NON-HDL CH 151 MG/DL 04/05/2015 Unknow n COMPLETE BLOOD COUNT 4776661 WBC 5.3 10e9/L 04/05/20 15 Unknown COMPLETE BLOOD COUNT 0667128 RBC 4.42 10e12/L 2014 Unknown COMPLETE BLOOD COUNT 0003830 HGB 13.4 g/dL 5 Unknown COMPLETE BLOOD COUNT 5935123 HCT DET 39.6 % 5 Unknown COMPLETE BLOOD COUNT 0778691 MCV 89.6 fL 5 Unknown COMPLETE BLOOD COUNT 5323777 MCH 30.3 pg 5 Unknown COMPLETE BLOOD COUNT 2104672 MCHC 33.8 g/dL 5 Unknown COMPLETE BLOOD COUNT 2861635 PLT 201 10e9/L 04/05/20 15 Unknown COMPLETE BLOOD COUNT 5178510 MPV 10.3 fL 5 Unknown COMPLETE BLOOD COUNT 6334662 LUPE % 56.4 % 5 Unknown COMPLETE BLOOD COUNT 8153756 LY % 24.8 % 5 Unknown COMPLETE BLOOD COUNT 8008657 MON % 12.8 % 5 Unknown COMPLETE BLOOD COUNT 8235755 EOS % 5.4 % 5 Unknown COMPLETE BLOOD COUNT 0510969 BASO % 0.6 % 5 Unknown COMPLETE BLOOD COUNT 0410223 RDW 13.2 % 5 Unknown COMPLETE BLOOD COUNT 8487611 ABS LUPE 2.99 10e9/L 015 Unknown COMPLETE BLOOD COUNT 7231295 ABS LYMPH 1.31 10e9/L 015 Unknown COMPLETE BLOOD COUNT 2761065 ABS MONO 0.68 10e9/L 015 Unknown COMPLETE BLOOD COUNT 2269157 ABS EOS 0.29 10e9/L 015 Unknown COMPLETE BLOOD COUNT 3456430 ABS BASO 0.03 10e9/L 015 Unknown COMPLETE BLOOD COUNT 1433062 RDW-SD 42.3 fL 5 Unknown LIPID GROUP 83121 HDL TEST 51 MG/DL 07/19/2012 Unknown LIPID GROUP 39739 TRIG 129 MG/DL 07/19/2012 Unknown LIPID GROUP 14504 TEST LDL 98 MG/DL 07/19/2012 Unknown LIPID GROUP 81354 CHOL 175 MG/DL 07/19/2012 Unknown LIPID GROUP 54294 RCHOL/HDL 3.43 RATIO 07/19/2012 Unknow n COMPREHENSIVE METABOLIC 25460 AST 18 U/L 2011 Unknown COMPREHENSIVE METABOLIC 86564 ALT 12 IU/L 2011 Unknown COMPREHENSIVE METABOLIC 85724 BUN 10 MG/DL 2011 Unknown COMPREHENSIVE METABOLIC 36985 ALBUMIN 4.1 GM/DL 2011 Unknown COMPREHENSIVE METABOLIC 25580 CHLORIDE 103 MMOL/L 07/19 Unknown COMPREHENSIVE METABOLIC 55110 BILI TOT 0.9 MG/DL 2011 Unknown COMPREHENSIVE METABOLIC 61674 ALK PHOS 62 U/L 2011 Unknown COMPREHENSIVE METABOLIC 59255 SODIUM 138 MMOL/L 07/19 Unknown COMPREHENSIVE METABOLIC 73211 CREATININE 1.08 MG/DL 10/2011 Unknown COMPREHENSIVE METABOLIC 32453 CALCIUM 9.1 MG/DL 2011 Unknown COMPREHENSIVE METABOLIC 59624 POTASSIUM 4.2 MMOL/L 07/19 Unknown COMPREHENSIVE METABOLIC 60123 PROT TOT 6.7 GM/DL 2011 Unknown COMPREHENSIVE METABOLIC 52174 Glucose 101 MG/DL 2011 Unknown COMPREHENSIVE METABOLIC 08619 BICARB 27 MMOL/L 2011 Unknown COMPREHENSIVE METABOLIC 77852 ANION GAP 8 MEQ/L 2011 Unknown GFR CALC 4392205 GFR AA >60 ML/MIN 07/19/2012 Unknown GFR CALC 2967602 GFR NON-AA >60 ML/MIN 07/19/2012 Unknown Procedures Procedure Codes Date ROUTINE VENIPUNCTURE CPT-4: 74193 09/30/2019 COMPREHEN METABOLIC PANEL CPT-4: 20096 09/30/2019 COMPLETE CBC W/AUTO DIFF WBC CPT-4: 14430 09/30/2019 ASSAY OF PSA TOTAL CPT-4: 48675 09/30/2019 ASSAY THYROID STIM HORMONE CPT-4: 40336 09/30/2019 LIPID PANEL CPT-4: 09001 09/30/2019 ROUTINE VENIPUNCTURE CPT-4: 22401 09/24/2019 COMPLETE CBC W/AUTO DIFF WBC CPT-4: 15696 09/24/2019 COMPREHEN METABOLIC PANEL CPT-4: 64234 09/24/2019 LIPID PANEL CPT-4: 80776 09/24/2019 ASSAY THYROID STIM HORMONE CPT-4: 79668 09/24/2019 THER/PROPH/DIAG INJ SC/IM CPT-4: 86862 01/13/2019 TRIAMCINOLONE ACET INJ NOS CPT-4: J3301 01/13/2019 DEXAMETHASONE SODIUM PHOS CPT-4: J1100 01/13/2019 ROUTINE VENIPUNCTURE CPT-4: 48554 09/04/2018 COMPREHEN METABOLIC PANEL CPT-4: 07086 09/04/2018 COMPLETE CBC W/AUTO DIFF WBC CPT-4: 36526 09/04/2018 LIPID PANEL CPT-4: 91470 09/04/2018 ASSAY OF PSA TOTAL CPT-4: 26497 09/04/2018 ASSAY THYROID STIM HORMONE CPT-4: 08811 09/04/2018 URINALYSIS NONAUTO W/O SCOPE CPT-4: 84732 05/15/2018 ROUTINE VENIPUNCTURE CPT-4: 58667 11/16/2017 A FRT/VG P CPT-4: 6159204 11/16/2017 A FOOD C P CPT-4: 8849034 11/16/2017 A NUTS PNL CPT-4: 3524816 11/16/2017 THER/PROPH/DIAG INJ SC/IM CPT-4: 17578 11/06/2017 TRIAMCINOLONE ACET INJ NOS CPT-4: J3301 11/06/2017 DEXAMETHASONE SODIUM PHOS CPT-4: J1100 11/06/2017 ROUTINE VENIPUNCTURE CPT-4: 39975 09/03/2017 ASSAY OF FREE THYROXINE CPT-4: 54143 09/03/2017 ASSAY THYROID STIM HORMONE CPT-4: 89576 09/03/2017 ASSAY TRIIODOTHYRONINE (T3) CPT-4: 09505 09/03/2017 ROUTINE VENIPUNCTURE CPT-4: 62634 07/31/2017 COMPREHEN METABOLIC PANEL CPT-4: 94655 07/31/2017 COMPLETE CBC W/AUTO DIFF WBC CPT-4: 67444 07/31/2017 LIPID PANEL CPT-4: 82279 07/31/2017 FLU VACC PRSV FREE INC ANTIG 65 AND OLDER CPT-4: 48136 07/04/2017 ADMIN INFLUENZA VIRUS VAC CPT-4: G0008 07/04/2017 ROUTINE VENIPUNCTURE CPT-4: 76287 02/26/2017 ASSAY THYROID STIM HORMONE CPT-4: 67385 02/26/2017 COMPREHEN METABOLIC PANEL CPT-4: 62635 02/26/2017 COMPLETE CBC W/AUTO DIFF WBC CPT-4: 96159 02/26/2017 LIPID PANEL CPT-4: 35722 02/26/2017 ASSAY OF PSA TOTAL CPT-4: 57814 02/26/2017 FLUZONE, 5ML (Medicare) CPT-4: Q2038 06/28/2016 ADMIN INFLUENZA VIRUS VAC CPT-4: G0008 06/28/2016 ROUTINE VENIPUNCTURE CPT-4: 34658 05/19/2016 ASSAY OF FREE THYROXINE CPT-4: 54875 05/19/2016 ASSAY THYROID STIM HORMONE CPT-4: 74931 05/19/2016 COMPREHEN METABOLIC PANEL CPT-4: 70835 05/19/2016 COMPLETE CBC W/AUTO DIFF WBC CPT-4: 95200 05/19/2016 LIPID PANEL CPT-4: 23295 05/19/2016 VITAMIN B-12 CPT-4: 54278 05/19/2016 PPPS, initial visit CPT-4: G0438 05/10/2016 ROUTINE VENIPUNCTURE CPT-4: 16604 04/05/2015 ASSAY THYROID STIM HORMONE CPT-4: 93112 04/05/2015 COMPREHEN METABOLIC PANEL CPT-4: 07726 04/05/2015 COMPLETE CBC W/AUTO DIFF WBC CPT-4: 99648 04/05/2015 LIPID PANEL CPT-4: 16311 04/05/2015 ASSAY OF PSA TOTAL CPT-4: 03139 04/05/2015 ROUTINE VENIPUNCTURE CPT-4: 58351 07/19/2012 COMPREHEN METABOLIC PANEL CPT-4: 69945 07/19/2012 LIPID PANEL CPT-4: 98828 07/19/2012 ELECTROCARDIOGRAM COMPLETE CPT-4: 39935 03/22/2012 Vital Signs Date Vital 09/24/2019 Blood Pressure 1: 125/72 Code: 8480-6 BMI: 19.8 Code: 74834-5 Heart Rate 1: 88 bpm Height: 5'11" [...] 1: 102/60 Code: 8480-6 BMI: 19.1 Code: 14785-1 Heart Rate 1: 82 bpm Height: 5'11" Respiratory Rate: 22 bpm SpO2: 97% Tempera ture: 36.4 (C) / 97.6 (F) Weight: 137 lbs 04/25/2018 Blood Pressure 1: 118/64 Code: 8480-6 BMI: 19.2 Code: 74249-8 Heart Rate 1: 98 bpm Height: 5'11" Respiratory Rate: 20 bpm SpO2: 99% Tempera ture: 36.4 (C) / 97.6 (F) Weight: 138 lbs 11/06/2017 Blood Pressure 1: 108/68 Code: 8480-6 BMI: 18.5 Code: 83268-0 Heart Rate 1: 68 bpm Height: 5'11" Respiratory Rate: 20 bpm SpO2: 96% Tempera ture: 36.8 (C) / 98.2 (F) Weight: 133 lbs 09/03/2017 Blood Pressure 1: 122/64 Code: 8480-6 BMI: 17.6 Code: 97690-0 Heart Rate 1: 90 bpm Height: 5'11" Respiratory Rate: 20 bpm SpO2: 98% Tempera ture: 36.4 (C) / 97.6 (F) Weight: 126 lbs 08/21/2017 Blood Pressure 1: 114/80 Code: 8480-6 BMI: 17.9 Code: 60013-0 Heart Rate 1: 80 bpm Height: 5'11" Respiratory Rate: 20 bpm SpO2: 95% Tempera ture: 36.6 (C) / 97.9 (F) Weight: 128 lbs 02/13/2017 Blood Pressure 1: 122/60 Code: 8480-6 BMI: 18.5 Code: 17770-8 Heart Rate 1: 76 bpm Height: 5'11" Respiratory Rate: 20 bpm SpO2: 96% Tempera ture: 36.9 (C) / 98.4 (F) Weight: 133 lbs 11/23/2016 Blood Pressure 1: 126/70 Code: 8480-6 BMI: 18.5 Code: 76189-2 Heart Rate 1: 100 bpm Height: 5'11" Respiratory Rate: 20 bpm SpO2: 96% Tempera ture: 37.1 (C) / 98.8 (F) Weight: 133 lbs 05/23/2016 Blood Pressure 1: 128/82 Code: 8480-6 BMI: 18.5 Code: 02883-5 Heart Rate 1: 88 bpm Height: 5'11" Respiratory Rate: 20 bpm Temperature: 36 .7 (C) / 98.0 (F) Weight: 133 lbs 05/10/2016 Blood Pressure 1: 146/70 Code: 8480-6 BMI: 18.5 Code: 39470-7 Heart Rate 1: 84 bpm Height: 5'11" Respiratory Rate: 20 bpm Temperature: 36 .7 (C) / 98.1 (F) Weight: 133 lbs 04/01/2015 Blood Pressure 1: 102/60 Code: 8480-6 BMI: 18.5 Code: 15635-8 Heart Rate 1: 64 bpm Height: 5'11" Respiratory Rate: 20 bpm Temperature: 36 .8 (C) / 98.2 (F) Weight: 133 lbs 01/13/2014 Blood Pressure 1: 124/78 Code: 8480-6 BMI: 19.8 Code: 22792-7 Heart Rate 1: 76 bpm Height: 5'11" Respiratory Rate: 20 bpm Temperature: 36 .8 (C) / 98.2 (F) Weight: 142 lbs 04/03/2012 Blood Pressure 1: 106/76 Code: 8480-6 BMI: 20.9 Code: 34302-9 Heart Rate 1: 84 bpm Height: 5'11" Respiratory Rate: 20 bpm Temperature: 36 .7 (C) / 98.0 (F) Weight: 150 lbs 12/20/2011 Blood Pressure 1: 116/60 Code: 8480-6 BMI: 20.1 Code: 31563-8 Heart Rate 1: 80 bpm Height: 5'11" Respiratory Rate: 20 bpm Temperature: 36 .4 (C) / 97.6 (F) Weight: 144 lbs 10/24/2011 Blood Pressure 1: 132/74 Code: 8480-6 BMI: 19.7 Code: 44043-2 Heart Rate 1: 96 bpm Height: 5'11" [...] 04/05/2015 follow up 04/01/2015 follow up 01/13/2014 [facility] November 2012 lab draw 07/19/2012 follow up 04/03/2012 S/P stent placement in LAD, changed effient to plavix hip pain 12/20/2011 dyskinesia or tremor 10/24/2011 follow up 03/13/2011 started on effient, zocor, and atenolol follow up 02/20/2011 [facility]/Dr Christian rojas follow up 02/23/2010 [facility], appt with Dr Bajwa 03/22/10 insomnia 01/12/2010 problems falling and staying asleep, takes nortriptyline Encounters Encounter Performer Location Codes Date () NURSE/OUTPATIENT VISIT EST Diagnosis: Essential (primary) hypertension[ICD10: I10] Diagnosis: Mixed hyperlipidemia[ICD10: E78.2] Diagnosis: Encounter for screening for malignant neoplasm of prostate[ICD10: Z12.5] Vonnie MATHEWS [employer] CPT-4: 65955 09/30/2019 ([id number]) OFFICE/OUTPATIENT VISIT EST Diagnosis: Encounter for therapeutic drug level monitoring[ICD10: Z51.81] Diagnosis: Essential tremor[ICD10: G25.0] Verna Ramirez VONNIE MATHEWS [employer] CPT-4: 04745 09/24/2019 ([id number]) OFFICE/OUTPATIENT VISIT EST Diagnosis: Noninfective gastroenteritis and colitis, unspecified[ICD10: K52.9] Diagnosis: Hemorrhage of anus and rectum[ICD10: K62.5] Vonnie MATHEWS [employer] CPT-4: 56943 05/26/2019 ([id number]) OFFICE/OUTPATIENT VISIT EST Diagnosis: Other intervertebral disc degeneration, 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] Diagnosis: Other forms of dyspnea[ICD10: R06.09] Vonnie MATHEWS [employer] [facility] CPT-4: 18692 03/17/2019 OFFICE/OUTPATIENT VISIT EST Diagnosis: Other intervertebral disc degeneration, 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] Diagnosis: Other symptoms and signs involving the musculoskeletal system[ICD10: R29.898] Vonnie MATHEWS DO [facility] CPT-4: 71799 02/18/2019 ([id number]) OFFICE/OUTPATIENT VISIT EST Diagnosis: Other allergic rhinitis[ICD10: J30.89] Akilah MATHEWS [employer] [facility] CPT-4: 67651 01/13/2019 ([id number]) NURSE/OUTPATIENT VISIT EST Diagnosis: Mixed hyperlipidemia[ICD10: E78.2] Diagnosis: Essential (primary) hypertension[ICD10: I10] Diagnosis: Encounter for screening for malignant neoplasm of prostate[ICD10: Z12.5] Diagnosis: Encounter for general adult medical examination with abnormal findings[ICD10: Z00.01] Diagnosis: Benign prostatic hyperplasia without lower urinary tract symptoms[ICD10: N40.0] Vonnie MATHEWS [employer] [facility] CPT-4: 52846 09/04/2018 ([id number]) OFFICE/OUTPATIENT VISIT EST Diagnosis: Otorrhea, left ear[ICD10: H92.12] Diagnosis: Impacted cerumen, right ear[ICD10: H61.21] Verna MATHEWS [employer] [facility] CPT-4: 62315 09/03/2018 ([id number]) OFFICE/OUTPATIENT VISIT EST Diagnosis: Other intervertebral disc degeneration, 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] Diagnosis: Primary insomnia[ICD10: F51.01] Diagnosis: Essential tremor[ICD10: G25.0] Vonnie MATHEWS [employer] [facility] CPT-4: 31082 08/26/2018 ([id number]) OFFICE/OUTPATIENT VISIT EST Diagnosis: Pelvic and perineal pain[ICD10: R10.2] Verna MATHEWS [employer] [facility] CPT-4: 94278 05/15/2018 ([id number]) OFFICE/OUTPATIENT VISIT EST Diagnosis: Encounter for therapeutic drug level monitoring[ICD10: Z51.81] Diagnosis: Acute sinusitis, unspecified[ICD10: J01.90] Diagnosis: Other intervertebral disc degeneration, 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] Diagnosis: Essential tremor[ICD10: G25.0] Diagnosis: Raynaud's syndrome without gangrene[ICD10: I73.00] Verna MATHEWS [employer] [facility] CPT-4: 39393 04/25/2018 ([id number]) OFFICE/OUTPATIENT VISIT EST Diagnosis: Idiopathic urticaria[ICD10: L50.1] Diagnosis: Other urticaria[ICD10: L50.8] Vonniefabricio COLMENARES Denia MATHEWS [employer] [facility] CPT-4: 02378 11/16/2017 ([id number]) OFFICE/OUTPATIENT VISIT EST Diagnosis: Idiopathic urticaria[ICD10: L50.1] Diagnosis: Other urticaria[ICD10: L50.8] Diagnosis: Other forms of dyspnea[ICD10: R06.09] Vonnie RODGERS Denia BOWMAN [employer] [facility] CPT-4: 21334 11/06/2017 ([id number]) OFFICE/OUTPATIENT VISIT EST Diagnosis: Dyspnea, unspecified[ICD10: R06.00] Diagnosis: Abnormal weight loss[ICD10: R63.4] Vonnie DOUGLASS REA [employer] [facility] CPT-4: 80245 09/03/2017 ([id number]) OFFICE/OUTPATIENT VISIT EST Diagnosis: 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] Diagnosis: Mixed hyperlipidemia[ICD10: E78.2] Diagnosis: Essential tremor[ICD10: G25.0] Diagnosis: Essential (primary) hypertension[ICD10: I10] Diagnosis: Abnormal weight loss[ICD10: R63.4] Vonnie LUCIA [employer] [facility] CPT-4: 47408 08/21/2017 ([id number]) OFFICE/OUTPATIENT VISIT EST Diagnosis: Mixed hyperlipidemia[ICD10: E78.2] Diagnosis: Essential (primary) hypertension[ICD10: I10] Diagnosis: 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] Diagnosis: Anemia, unspecified[ICD10: D64.9] Vonnie MATHEWS DO [facility] CPT-4: 14952 07/31/2017 ([id number]) OFFICE/OUTPATIENT VISIT EST Diagnosis: FLU VACCINE[ICD10: Z23] Vonnie GERMAN DO [facility] CPT-4: 04321 07/04/2017 ([id number]) OFFICE/OUTPATIENT VISIT EST Diagnosis: Mixed hyperlipidemia[ICD10: E78.2] Diagnosis: Essential tremor[ICD10: G25.0] 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] Vonnie MATHEWS DO [facility] CPT-4: 26875 11/23/2016 ([id number]) OFFICE/OUTPATIENT VISIT EST Diagnosis: FLU VACCINE[ICD10: Z23] Vonnie GERMAN DO [facility] CPT-4: 69026 06/28/2016 OFFICE/OUTPATIENT VISIT EST Diagnosis: Open bite of right hand, initial encounter[ICD10: S61.451A] Vonnie MATHEWS DO [facility] CPT-4: 70148 05/23/2016 ([id number]) OFFICE/OUTPATIENT VISIT EST Diagnosis: Encounter for general adult medical examination with abnormal findings[ICD10: Z00.01] Diagnosis: Mixed hyperlipidemia[ICD10: E78.2] Diagnosis: Essential tremor[ICD10: G25.0] Diagnosis: 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] Vonnie BOWMAN [employer] [facility] CPT-4: 20846 05/19/2016 ([id number]) OFFICE/OUTPATIENT VISIT EST Diagnosis: HYPERLIPIDEMIA NEC/NOS[ICD9: 272.4] Diagnosis: CAD[ICD9: 414.00] Diagnosis: TACHYCARDIA[ICD9: 785.0] Diagnosis: HYPERTENSION[ICD9: 401.9] Diagnosis: Routine medical exam[ICD9: V70.0] Vonnie BOWMAN [employer] CPT-4: 99220 04/05/2015 ([id number]) OFFICE/OUTPATIENT VISIT EST Diagnosis: HYPERTENSION[ICD9: 401.9] Diagnosis: HYPERLIPIDEMIA NEC/NOS[ICD9: 272.4] Diagnosis: CAD[ICD9: 414.00] Diagnosis: LUMB/LUMBOSAC DISC DEGEN[ICD9: 722.52] Vonnie Romuloalyssaranjan DOLLY GASPAR Denia BOWMAN [employer] CPT-4: 93615 04/01/2015 ([id number]) OFFICE/OUTPATIENT VISIT EST Diagnosis: CHEST PAIN NOS[ICD9: 786.50] Diagnosis: PAIN IN THORACIC SPINE[ICD9: 724.1] Diagnosis: HYPERTENSION[ICD9: 401.9] Diagnosis: GERD[ICD9: 530.81] Vonnie MATHEWS [employer] CPT-4: 65885 01/13/2014 ([id number]) OFFICE/OUTPATIENT VISIT EST Diagnosis: CAD[ICD9: 414.00] Diagnosis: HYPERLIPIDEMIA NEC/NOS[ICD9: 272.4] Vonnie Romulojuan miguel ANNA Denia MATHEWS [employer] CPT-4: 65362 07/19/2012 ([id number]) OFFICE/OUTPATIENT VISIT EST Diagnosis: CAD[ICD9: 414.00] Diagnosis: INSOMNIA NOS[ICD9: 780.52] Vonnie Romulojuan miguel COLMENARES Denia DYEER [employer] CPT-4: 72394 04/03/2012 ([id number]) OFFICE/OUTPATIENT VISIT EST Diagnosis: CHEST PAIN NOS[ICD9: 786.50] Diagnosis: CAD[ICD9: 414.00] Vonnie COLMENARSE S. ORENDER DO [facility] CPT-4: 11073 03/22/2012 ([id number]) OFFICE/OUTPATIENT VISIT EST Diagnosis: PROSTATITIS[ICD9: 601.9] Diagnosis: TREMOR NEC[ICD9: 333.1] Vonnie COLMENARES S. OREND ER DO [facility] CPT-4: 87064 12/20/2011 OFFICE/OUTPATIENT VISIT EST Diagnosis: TREMOR NEC[ICD9: 333.1] Diagnosis: TACHYCARDIA[ICD9: 785.0] Diagnosis: HYPERTENSION[ICD9: 401.9] Vonnie COLMENARES S. ORE NDER DO [facility] CPT-4: 92020 10/24/2011 OFFICE/OUTPATIENT VISIT EST Vonnie COLMENARES S. ROMULO NDER DO [facility] CPT- 4: 33269 03/13/2011 ([id number]) OFFICE/OUTPATIENT VISIT EST Vonnie GASPAR SKim ORENDER DO [facility] CPT-4: 50731 02/20/2011 ([id number]) OFFICE/OUTPATIENT VISIT, EST Vonnie NELSON S. ORENDER DO [facility] CPT-4: 18225 02/23/2010 ([id number]) OFFICE/OUTPATIENT VISIT, EST Vonnie NELSON S. ORENDER DO [facility] CPT-4: 01231 01/12/2010 Plan of Care Planned Activity Notes Codes Status Date Appointment: [facility] [place] RESCHEDULED 09/25/2019 Visit Diagnosis Plan: Essential tremor Discussion: sta ble on clonazepam. educated patient about purchasing a large, heavy pen that will allow him to improve his writing. instructed him that pens can be purchased on [employer]. ICD-9 : 333.1 ICD-10 : G25.0 09/24/2019 Visit Diagnosis Plan: Encounter for therapeutic drug l evel monitoring Discussion: UDS and contract completed today. ICD-9 : V58.83 ICD-10 : Z51.81 09/24/2019 Appointment: [facility] [place] MEDICATION REVIEW 09/24/2019 Visit Diagnosis Plan: Noninfective gastroenteritis and colitis, unspecified Discussion: Kathrin duron Update colonoscopy ICD-9 : 558.9 ICD-10 : K52.9 05/26/2019 Visit Diagnosis Plan: Hemorrhage of anus and rectum Di scussion: Update colonoscopy ICD-9 : 569.3 ICD-10 : K62.5 05/26/2019 Appointment: Vonnie Mathewstel: [address] [place], [place] [phone] [place] record request faxed 05/23; LM with medical records 05/26/19 Hospital Follow Up 05/26/2019 Care Plan: Referral Order SNOMED-CT : 30 [id number] Pending 05/26/2019 Visit Diagnosis Plan: Other intervertebral disc degene ration, lumbar region Discussion: Increase lyrica to 150mg po q HS Continue stretches from PT [facility] Fwup after that appointment ICD-9 : 722.52 ICD-10 : M51.36 03/17/2019 Appointment: Vonnie Mathews WPtel: [address] [place], [place] [phone] [place] FOLLOW UP 03/17/2019 Visit Diagnosis Plan: Other intervertebral disc degene ration, lumbar region Discussion: Start PT Referral for epidural Will start lyrica 75mg po q HS once CT scan results obtained [facility] Follow Up: 3 weeks ICD-9 : 722.52 [...] ICD-10 : R29.898 02/18/2019 Appointment: Vonnie Mathewstel: [address] [place], [place] [phone] [place] FOLLOW UP 02/18/2019 Appointment: Vonnie Mathewstel: [address] [place], [place] [phone] [place] CANCELED 02/18/2019 Visit Diagnosis Plan: Other [...] : J30.89 01/13/2019 Appointment: Akilah Lopez [address] [address] [place] Due for annual wellness ACUTE ILLNESS 01/14/20 Appointment: Vonnie Mathews WPtel: [address] [address] [place] LAB 09/04/2018 Visit Diagnosis Plan: Impacted [...] : H92.12 09/03/2018 Appointment: Verna Ramirez [address] ACUTE ILLNESS 09/03/2018 Visit Diagnosis Plan: [...] : M51.36 08/26/2018 Appointment: Vonnie Mathews WPtel: [facility] [address] [place] FOLLOW UP 08/26/2018 Visit Diagnosis Plan: [...] ICD-10 : R10.2 05/15/2018 Appointment: Verna Ramirez [address] [place], [place] [id number] ACUTE ILLNESS 05/15/2018 Patient Education: Patient Medication Summary Completed 05/15/2018 Care Plan: US EXAM PELVIC COMPLETE scrotal LOINC : 16653-7 Pending 05/15/2018 Visit Diagnosis Plan: Other intervertebral disc degene ration, lumbar region Discussion: stable on oxycodone. continue with current dose. ICD-9 : 722.52 ICD-10 : M51.36 04/25/2018 Visit Diagnosis Plan: Encounter for therapeutic [...] ICD-10 : J01.90 04/25/2018 Visit Diagnosis Plan: Essential tremor Discussion: sta ble on current medications. ICD-9 : 333.1 ICD-10 : G25.0 04/25/2018 Visit Diagnosis Plan: Raynaud's syndrome without [...] ICD-10 : I73.00 04/25/2018 Appointment: Verna Ramirez 504 [facility] MEDICATION REVIEW 04/25/2018 Patient Education: Patient Medication Summary Completed 04/25/2018 Appointment: Vonnie Mathews WPtel: [address] [place], [place] [phone] 11/16/2017 Patient Education: Patient Medication Summary Completed [...] L50.1 11/06/2017 Appointment: Vonnie Mathews WPtel: [address] [place], [place] [phone] FOLLOW UP 11/06/2017 Patient Education: Patient Medication [...] : R63.4 09/03/2017 Appointment: Vonnie Mathews WPtel: [address] [place], [place] [phone] FOLLOW UP 09/03/2017 Patient Education: Patient Medication [...] 414.00 ICD-10 : I25.10 08/21/2017 Appointment: Vonnie Mathews WPtel: [address] [place], [place] [id number] [place] FOLLOW UP 08/21/2017 Patient Education: Patient Medication Summary Completed 08/21/2017 Appointment: Vonnie Mathews WPtel: [address] [place], [place] [phone] [place] LAB 07/31/2017 Patient Education: Patient Medication Summary Completed 07/31/2017 Appointment: Vonnie Mathews WPtel: [address] [place], [place] [phone] [place] INJECTION 07/04/2017 Patient Education: Patient Medication Summary Completed 07/04/2017 Appointment: Vonnie Mathews WPtel: [address] [place], [place] [phone] [place] LAB 02/26/2017 Patient Education: Patient Medication Summary Completed 02/26/2017 Visit Diagnosis Plan: Essential tremor Discussion: Con tinue clonazepam at 1mg q AM and primidone 50mg q HS Follow Up: 3 months ICD-9 : 333.1 ICD-10 : G25.0 02/13/2017 Appointment: Vonnie Mathews WPtel: [address] [place], [place] [phone] [place] 02/08 confirmed~sl FOLLOW UP 02/13/2017 Patient Education: Patient Medication Summary Completed 02/13/2017 Appointment: Vonnie Mathews WPtel: [address] [place], [place] [id number] [place] RESCHEDULED 01/23/2017 Visit Diagnosis Plan: Other intervertebral disc degene ration, lumbar region Discussion: DC oxycodone Tramadol 50mg 1-2 po TID prn pain Follow Up: 2 months ICD-9 : 722.52 ICD-10 : M51.36 11/23/2016 Visit Diagnosis Plan: Essential tremor Discussion: Inc rease clonazepam to 1mg po BID Discussed sinemet ICD-9 : 333.1 ICD-10 : G25.0 11/23/2016 Appointment: Vonnie Mathews WPtel: [address] [place], [place] [phone] 11/22 confirmed~ MEDICATION REVIEW 11/23/2016 Patient Education: Patient Medication Summary Completed 11/23/2016 Patient Education: [facility] [employer] - Clonazepam - 18-64 - Dynamic Portal ID Completed 11/23/2016 Appointment: Vonnie Mathews WPtel: [address] [place], [place] [phone] INJECTION 06/28/2016 Patient Education: Patient Medication Summary Completed 06/28/2016 Referral: Fernando Day WPtel: #1 [facility]66[facility] [id number] per Maribeth, the patient is sched uled [...] worsening 05/23/2016 Appointment: Vonnie Mathews WPtel: [phone] [facility] ER Follow UP 05/23/2016 Patient Education: Patient Medication Summary Completed 05/23/2016 Appointment: Vonnie Mathews WPtel: [facility] LAB 05/19/2016 Patient Education: Patient Medication Summary Completed 05/19/2016 Visit Plan: Change coreg to 3.125mg BID Trial of low dose clonazepam 0.5mg BID for tremors Fwup with Dr. Ramsey as scheduled Return for fasting lab--CBC, CMP, TSH, free T4, Lipids, PSA, B12 Proceed with Colonoscopy 05/10/2016 Appointment: Vonnie Mathews WPtel: [phone] [facility] 05/09 confirmed~sl Annual Well Visit 05/10/2016 Patient Education: Patient Medication Summary Completed 05/10/2016 Care Plan: Referral Order SNOMED-CT : 30 [id number] Pending 05/10/2016 Appointment: Vonnie Mathews WPtel: [address] [place], [place] [phone] [place] Rescheduled for 05/10/16 at 2PM~lb RESCHEDULED 04/26/2016 Ref[facility]: [facility] Referral Initiated 04/29/2015 Appointment: Vonnie Mathews WPtel: [address] [place], [place] [phone] LAB 04/05/2015 Patient Education: Patient Medication Summary Completed 04/05/2015 Visit Plan: Return in AM for fasting lab --CMP, lipids, CBC, TSH, PSA Change hydrocodone to oxycodone 7.5/325mg 1-2 po TID Schedule with cardiology Needs colonoscopy once cardiology evaluation complete Will need to restart chol meds after lab Recheck 1mo on pain meds 04/01/2015 Appointment: Vonnie Mathews WPtel: [address] [place], [place] [phone] 03/31 confirmed -mf PHYSICAL 04/01/2015 Patient Education: Patient Medication Summary Completed 04/01/2015 Appointment: Vonnie Mathewstel: [phone] [facility] Annual Well Visit 09/23/2014 Visit Plan: Continue protonix Pt has fwu p with Card next month Rec chiropracter or PT for ribs/thoracics being out and could be contributing to chest pain 01/13/2014 Appointment: Vonnie Mathews WPtel: [address] [place] [address] [place] FOLLOW UP 01/13/2014 Patient Education: Patient Medication Summary Completed 01/13/2014 Appointment: Ariella Mcnally WPtel: [address] [place] [address] US FOLLOW UP 12/12/2013 Appointment: Malika Cárdenas WPtel: [address] [place] [address] [place] PHYSICAL 12/12/2013 Appointment: Vonnie Mathews WPtel: [address] [place] [address] ACUTE ILLNESS 02/20/2013 Appointment: Vonnie Mathews WPtel: [address] [place] [address] LAB 07/19/2012 Patient Education: Patient Medication Summary Completed 07/19/2012 Appointment: Vonnie Mathews WPtel: [address] [place] [address] FOLLOW UP 04/03/2012 Patient Education: Patient Medication Summary Completed 04/03/2012 Appointment: Vonnie Mathews WPtel: [address] [place] [address] ACUTE ILLNESS 03/22/2012 Patient Education: Patient Medication Summary Completed 03/22/2012 Appointment: Vonnie Mathews WPtel: [address] [place] [address] US FOLLOW UP 12/26/2011 Visit Plan: Magy hayes eds 12/20/2011 Appointment: Vonnie Mathews WPtel: [address] [place] [address] ACUTE ILLNESS 12/20/2011 Patient Education: Patient Medication Summary Completed 12/20/2011 Visit Plan: Change neurontin to Cymbalta 30mg for 1wk then 60mg QD Add Propranolol for tremor 10/24/2011 Appointment: Vonnie Mathewstel: [address] [place] [address] ACUTE ILLNESS 10/24/2011 Appointment: Vonnie Mathews WPtel: [address] [place] [address] ACUTE ILLNESS 10/24/2011 Patient Education: Patient Medication Summary Completed 10/24/2011 Visit Plan: Continue current meds and fw up with Card as scheduled 03/13/2011 Appointment: Vonnie Mathews WPtel: [address] [place] [address] FOLLOW UP 03/13/2011 Patient Education: Patient Medication Summary Completed 03/13/2011 Visit Plan: Will obtain all records and lab from [facility] Discussed will likely need heart cath which pt states that Card did talk to him about in the hospital 02/20/2011 Appointment: Vonnie Mathews WPtel: [address] [place] [address] ACUTE ILLNESS 02/20/2011 Patient Education: Patient Medication Summary Completed 02/20/2011 Visit Plan: Cont Pepcid and Prilosec See Card for cardiac cath. 02/23/2010 Appointment: Vonnie Mathews WPtel: [address] [place], [place] [phone] FOLLOW UP 02/23/2010 Patient Education: Patient Medication Summary Completed 02/23/2010 Visit Plan: Increase Pamelor to 75mg qhs Increase Hydrocodone to 10/325mg 1-2 po q6 prn 01/12/2010 Appointment: Vonnie Mathews WPtel: [address] [place] [address] ACUTE ILLNESS 01/12/2010 Patient Education: Patient Medication Summary Completed 01/12/2010 Referral: Iván Pardo WPtel: [facility] [address] [facility] 1 [id number] [place] Referral Initiated Referral: Fernando Day WPtel: #1 [facility] [id number] [place] Referral Completed Referral: Fernando DayKim WPtel: #1 [facility] [id number] [place] Referral Appointment Requested Instructions Comment . [...]
--- OUTSIDE RECORDS SUMMARY | 2020-02-10 08:23 | XMS REPORT | CCD ---
Author Author Nash Mathews D.O. Organization [facility] Address [address] [place] [address] Phone Care Team Providers Care Pool Attendant Name Role Phone Vonnie Mathews D.O., PP Unavailable CCM Unavailable Summary Purpose Interface Exchange Insurance Providers Payer name Policy type / Coverage type Covered democrat ID Effective Begin Date Effective End Date WPS MEDICARE PART B [place] Part B [id number] 2018 Unknown Family History Family History data not found Social History Social History Element Codes Description Effective Dates Marital status Unknown 10/24/[address]: 654764663 Nonsmoker 03/29/2011 Allergies, Adverse Reactions, Alerts Substance [...] R63.4 08/21/2017 Active 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: [...] Fill Instructions clonazepam 1 mg tablet RxNorm: 516304 TAKE 1 TABLET BY MOUTH EV SUSAN AM 09/23/2019 10/22/2019 Active clonazepam 1 mg tablet RxNorm: 271154 TAKE 1 TABLET BY MOUTH EV SUSAN AM 08/21/2019 09/22/2019 Inactive Singulair 10 mg tablet RxNorm: 452819 TABLET(S) 1 TABLET(S) PO QD 1 10/11/2019 Active Flagyl 500 mg tablet RxNorm: 241303 1 Tablet(s) PO TID 05/26/2019 Inactive clonazepam 1 mg tablet RxNorm: 190252 TAKE 1 TABLET BY MOUTH EV SUSAN MORNING 05/23/2019 06/21/2019 Inactive pravastatin 20 mg tablet RxNorm: 205219 1 Tablet(s) PO QD 04/14/2019 10/10/2019 Active Needs updated fasting labs Singulair 10 mg tablet RxNorm: 443619 Tablet(s) 1 TABLET(S) PO QD 0 04/14/2019 07/12/2019 Inactive clonazepam 1 mg tablet RxNorm: 554162 1 Tablet(s) PO QAM 02/21/2019 0 05/23/2019 Inactive Bevespi Aerosphere 9 mcg-4.8 mcg HFA aerosol inhaler RxNorm: 9124544 2 Puff(s) INH BID 02/19/2019 No Stop Date Active ProAir HFA 90 mcg/actuation aerosol inhaler RxNorm: 958267 2 Puff(s) INH Q4H as needed 02/19/2019 09/24/2019 Inactive metoprolol tartrate 25 mg tablet RxNorm: 950677 1/2 Tablet(s) PO BI D 02/18/2019 05/18/2019 Inactive pravastatin 20 mg tablet RxNorm: 737711 1 Tablet(s) PO QD Needs updated fasting labs 01/13/2019 04/14/2019 Inactive Needs updated fa sting labs Singulair 10 mg tablet RxNorm: 219045 Tablet(s) 1 TABLET(S) PO QD 0 01/13/2019 04/12/2019 Inactive Plavix 75 mg tablet RxNorm: 535914 Tablet(s) 1 TABLET(S) PO QD 04/201906/20/2019 Inactive [SAVINGS FOR NON-COVERED SHANDA -- BIN:338278, PCN: ASPROD1, Group: XXXXX, ID# [id number], Questions: . THIS IS NOT INSURANCE.] Singulair 10 mg tablet RxNorm: 227724 1 TABLET(S) PO QD 10/29/2018 Inactive primidone 50 mg tablet RxNorm: 994451 2 TABLET(S) PO BI D TAKE 2 TABLETS BY MOUTH EVERY NIGHT AT BEDTIME 10/07/2018 01/12/2019 Inactive Patient requests 90 days supply pravastatin 20 mg tablet RxNorm: 844573 1 TABLET(S) PO QD 09/23/2018 01/12/2019 Inactive clonazepam 1 mg tablet RxNorm: 679290 1 Tablet(s) PO QAM 09/19/2018 0 12/17/2018 Inactive primidone 50 mg tablet RxNorm: 590592 TABLET(S) TAKE 2 TABLETS BY MOUTH EVERY NIGHT AT BEDTIME 09/18/2018 01/12/2019 Inactive ciprofloxacin 0.2 % ear drops in a dropperette RxNorm: 54763 6 2 Drop(s) left otic (ear) BID 09/03/2018 09/09/2018 Inactive primidone 50 mg tablet RxNorm: 442937 2 Tablet(s) PO BI D TAKE 2 TABLETS BY MOUTH EVERY NIGHT AT BEDTIME 08/26/2018 10/06/2018 Inactive Ambien 5 mg tablet RxNorm: 421542 TAKE 1 TABLET BY MOUTH EVERY NIGHT AT BEDTIME 08/05/2018 09/03/2018 Inactive Singulair 10 mg tablet RxNorm: 214105 1 TABLET(S) PO QD 07/23/2018 Inactive clonazepam 1 mg tablet RxNorm: 524462 TAKE 1 TABLET BY MOUTH EV SUSAN MORNING 07/23/2018 08/21/2018 Inactive Plavix 75 mg tablet RxNorm: 209778 1 TABLET(S) PO QD 07/04/201812/22 Inactive [SAVINGS FOR NON-COVERED DRUGS -- BIN:00 3585, PCN: ASPROD1, Group: XXXXX, ID# [id number], Questions: . THIS IS NOT INSURANCE.] clonazepam 1 mg tablet RxNorm: 915813 TAKE 1 TABLET BY MOUTH EV SUSAN MORNING 06/25/2018 07/23/2018 Inactive clonazepam 1 mg tablet RxNorm: 621382 TAKE 1 TABLET BY MOUTH EV SUSAN MORNING 05/23/2018 06/21/2018 Inactive primidone 50 mg tablet RxNorm: 504565 Tablet(s) TAKE 2 TABLETS BY MOUTH EVERY NIGHT AT BEDTIME 05/16/2018 08/25/2018 Inactive oxycodone-acetaminophen 7.5 mg-325 mg tablet RxNorm: 1156395 1-2 Tablet(s) PO TID as needed 04/25/2018 05/24/2018 Inactive Singulair 10 mg tablet RxNorm: 651981 1 Tablet(s) PO QD 04/25/2018 Inactive Medrol (Jose) 4 mg tablets in a dose pack RxNorm: 489000 Tablet(s) PO take as directed 04/25/2018 09/02/2018 Inactive clonazepam 1 mg tablet RxNorm: 649678 TAKE 1 TABLET BY MOUTH EV SUSAN MORNING 04/24/2018 05/22/2018 Inactive Plavix 75 mg tablet RxNorm: 021157 1 TABLET(S) PO QD 04/04/201807/02 Inactive [SAVINGS FOR NON-COVERED DRUGS -- BIN:00 3588, PCN: ASPROD1, Group: XXXXX, ID# [id number], Questions: . THIS IS NOT INSURANCE.] pravastatin 20 mg tablet RxNorm: 357375 1 Tablet(s) PO QD 03/21/2018 09/16/2018 Inactive ProAir HFA 90 mcg/actuation aerosol inhaler RxNorm: 689686 2 Puff(s) INH Q4H as needed 03/18/2018 03/17/2018 Inactive tamsulosin 0.4 mg capsule RxNorm: 324786 1 CAPSULE(S) PO QD 018 01/12/2019 Inactive clonazepam 1 mg tablet RxNorm: 336956 1 Tablet(s) PO QAM 02/25/2018 0 04/25/2018 Inactive tamsulosin 0.4 mg capsule RxNorm: 197623 1 Capsule(s) PO QD 018 03/13/2018 Inactive tamsulosin 0.4 mg capsule RxNorm: 447189 1 Capsule(s) PO QD 018 02/03/2018 Inactive tamsulosin 0.4 mg capsule RxNorm: 971368 1 Capsule(s) PO QD 018 02/12/2018 Inactive Ambien 5 mg tablet RxNorm: 608694 Tablet(s) TAKE 1 TAB LET BY MOUTH EVERY NIGHT AT BEDTIME 01/24/2018 08/05/2018 Inactive primidone 50 mg tablet RxNorm: 055271 Tablet(s) TAKE 2 TABLETS BY MOUTH EVERY NIGHT AT BEDTIME 01/18/2018 05/16/2018 Inactive cyclobenzaprine 10 mg tablet RxNorm: 057235 1 Tablet(s) PO TID as needed for muscle spasm 01/11/2018 02/09/2018 Inactive [SAVINGS FOR NON -COVERED DRUGS -- BIN:194141, PCN: ASPROD1, Group: XXXXX, ID# [id number], Questions: . THIS IS NOT INSURANCE.] clonazepam 1 mg tablet RxNorm: 310093 1 Tablet(s) PO QAM 12/24/2017 0 02/21/2018 Inactive prednisone 20 mg tablet RxNorm: 427267 1 Tablet(s) PO QD 11/06/2017 0 11/10/2017 Inactive EpiPen 2-Jose 0.3 mg/0.3 mL injection, auto-injector RxNorm: 136788 1 Unit Dose IM as needed 11/06/2017 09/24/2019 Inactive ProAir HFA 90 mcg/actuation aerosol inhaler RxNorm: 665489 2 Puff(s) INH Q4H as needed 10/30/2017 03/17/2018 Inactive primidone 50 mg tablet RxNorm: 352935 TAKE 2 TABLETS BY MOUTH EVERY NIGHT AT BEDTIME 10/15/2017 01/17/2018 Inactive Plavix 75 mg tablet RxNorm: 587671 1 Tablet(s) PO QD 10/01/201703/29 Inactive [SAVINGS FOR NON-COVERED DRUGS -- BIN:00 3585, PCN: ASPROD1, Group: XXXXX, ID# [id number], Questions: . THIS IS NOT INSURANCE.] clonazepam 1 mg tablet RxNorm: 107033 1 Tablet(s) PO QAM 09/19/2017 0 12/16/2017 Inactive primidone 50 mg tablet RxNorm: 432596 2 Tablet(s) PO QHS 08/29/2017 0 01/18/2018 Inactive oxycodone-acetaminophen 7.5 mg-325 mg tablet RxNorm: 8730642 1-2 Tablet(s) PO TID as needed 08/22/2017 09/19/2017 Inactive pravastatin 20 mg tablet RxNorm: 614625 1 Tablet(s) PO QD 08/21/2017 03/21/2018 Inactive carvedilol 3.125 mg tablet RxNorm: 989857 1 Tablet(s) P O BID to replace 6.25mg dose 08/21/2017 09/02/2017 Inactive primidone 50 mg tablet RxNorm: 273248 TAKE 2 TABLETS BY MOUTH EVERY NIGHT AT BEDTIME 06/18/2017 08/28/2017 Inactive clonazepam 1 mg tablet RxNorm: 465703 1 Tablet(s) PO QAM 06/04/2017 1 11/02/2016 Inactive Plavix 75 mg tablet RxNorm: 069505 1 Tablet(s) PO QD 04/10/201710/01 Inactive [SAVINGS FOR NON-COVERED DRUGS -- BIN:00 3585, PCN: ASPROD1, Group: XXXXX, ID# [id number], Questions: . THIS IS NOT INSURANCE.] pravastatin 20 mg tablet RxNorm: 307819 1 Tablet(s) PO QD 02/26/2017 08/24/2017 Inactive carvedilol 3.125 mg tablet RxNorm: 197823 1 Tablet(s) P O BID to replace 6.25mg dose 02/26/2017 08/21/2017 Inactive Ultram 50 mg tablet RxNorm: 790420 TAKE 1 TO 2 TABLETS BY MOUTH THREE TIMES DAILY NEEDED FOR PAIN 02/26/2017 03/07/2017 Inactive pravastatin 20 mg tablet RxNorm: 491529 1 Tablet(s) PO QD 02/26/2017 08/21/2017 Inactive carvedilol 3.125 mg tablet RxNorm: 762547 1 Tablet(s) P O BID to replace 6.25mg dose 02/26/2017 08/20/2017 Inactive clonazepam 0.5 mg tablet RxNorm: 072553 1 Tablet(s) PO QAM 02/14/20 17 02/13/2017 Inactive primidone 50 mg tablet RxNorm: 854035 1 Tablet(s) PO QHS 02/13/2017 0 05/01/2017 Inactive clonazepam 1 mg tablet RxNorm: 400624 1 Tablet(s) PO QAM 02/13/2017 0 05/13/2017 Inactive primidone 50 mg tablet RxNorm: 385635 1/2 Tablet(s) PO QD for 7 days then increase to 1 tablet at bedtime 01/09/2017 02/12/2017 Inactive pravastatin 20 mg tablet RxNorm: 182781 Tablet(s) 1 TABLET(S) PO QD 11/29/2016 02/25/2017 Inactive clonazepam 1 mg tablet RxNorm: 881419 1 Tablet(s) PO BID replac es 0.5mg dose 11/23/2016 01/08/2017 Inactive pravastatin 20 mg tablet RxNorm: 711110 1 TABLET(S) PO QD 11/17/2016 11/28/2016 Inactive Ambien 5 mg tablet RxNorm: 711129 TAKE 1 TABLET BY MOUTH EVERY NIGHT AT BEDTIME 11/17/2016 12/14/2016 Inactive clonazepam 0.5 mg tablet RxNorm: 924134 TAKE 1 TABLET BY MOUTH TWICE DAILY 11/17/2016 11/22/2016 Inactive Plavix 75 mg tablet RxNorm: 491351 1 Tablet(s) PO QD 11/06/201604/09 Inactive [SAVINGS FOR NON-COVERED DRUGS -- BIN:00 3585, PCN: ASPROD1, Group: XXXXX, ID# [id number], Questions: . THIS IS NOT INSURANCE.] Plavix 75 mg tablet RxNorm: 946501 1 Tablet(s) PO QD 08/28/201611/05 Inactive [SAVINGS FOR NON-COVERED DRUGS -- BIN: 3585, PCN: ASPROD1, Group: XXXXX, ID# [id number], Questions: . THIS IS NOT INSURANCE.] Lidoderm 5 % topical patch RxNorm: 5544797 Application T OP 2 patches for 12hrs then off for 12hrs 08/28/2016 08/27/2016 Inactive clonazepam 0.5 mg tablet RxNorm: 449360 1 Tablet(s) PO BID 08/07/20 16 11/22/2016 Inactive pravastatin 20 mg tablet RxNorm: 864319 1 Tablet(s) PO QD 08/07/2016 11/04/2016 Inactive cyclobenzaprine 10 mg tablet RxNorm: 282014 1 Tablet(s) PO TID as needed for muscle spasm 08/07/2016 09/05/2016 Inactive [SAVINGS FOR NON -COVERED DRUGS -- BIN:604020, PCN: ASPROD1, Group: XXXXX, ID# [id number], Questions: . THIS IS NOT INSURANCE.] Plavix 75 mg tablet RxNorm: 021901 1 Tablet(s) PO QD 08/07/201608/27 Inactive [SAVINGS FOR NON-COVERED DRUGS -- BIN:00 3585, PCN: ASPROD1, Group: XXXXX, ID# [id number], Questions: . THIS IS NOT INSURANCE.] carvedilol 3.125 mg tablet RxNorm: 356799 1 Tablet(s) P O BID to replace 6.25mg dose 08/07/2016 02/02/2017 Inactive clonazepam 0.5 mg tablet RxNorm: 810364 1 Tablet(s) PO BID 07/04/2008/07/2016 Inactive Plavix 75 mg tablet RxNorm: 298953 1 TABLET(S) PO QD 06/20/201608/06 Inactive [SAVINGS FOR NON-COVERED DRUGS -- BIN:00 3585, PCN: ASPROD1, Group: XXXXX, ID# [id number], Questions: . THIS IS NOT INSURANCE.] clonazepam 0.5 mg tablet RxNorm: 084677 1 Tablet(s) PO BID 06/09/20 16 07/03/2016 Inactive pravastatin 20 mg tablet RxNorm: 431214 1 Tablet(s) PO QD 05/23/2016 08/06/2016 Inactive pravastatin 20 mg tablet RxNorm: 298494 1 Tablet(s) PO QD 05/23/2016 05/22/2016 Inactive carvedilol 3.125 mg tablet RxNorm: 328791 1 Tablet(s) P O BID to replace 6.25mg dose 05/10/2016 08/06/2016 Inactive carvedilol 3.125 mg tablet RxNorm: 492703 1 Tablet(s) P O BID to replace 6.25mg dose 05/10/2016 05/09/2016 Inactive clonazepam 0.5 mg tablet RxNorm: 226137 1 Tablet(s) PO BID 05/10/20 16 06/08/2016 Inactive carvedilol 6.25 mg tablet RxNorm: 468879 1 Tablet(s) PO QD 05/10/20 16 05/10/2016 Inactive simvastatin 40 mg tablet RxNorm: 467097 1 TABLET(S) PO QD 04/10/2016 05/09/2016 Inactive Medrol (Jose) 4 mg tablets in a dose pack RxNorm: 859252 Tablet(s) PO As Directed 01/13/2016 05/09/2016 Inactive cyclobenzaprine 10 mg tablet RxNorm: 618041 1 TABLET(S) PO TID NEEDED FOR SPASM 01/11/2016 03/10/2016 Inactive [SAVINGS FOR NON -COVERED DRUGS -- BIN:298346, PCN: ASPROD1, Group: XXXXX, ID# [id number], Questions: . THIS IS NOT INSURANCE.] Plavix 75 mg tablet RxNorm: 570227 1 Tablet(s) PO QD 12/30/201506/19 Inactive [SAVINGS FOR NON-COVERED DRUGS -- BIN: 3585, PCN: ASPROD1, Group: XXXXX, ID# [id number], Questions: . THIS IS NOT INSURANCE.] Ambien 5 mg tablet RxNorm: 171553 TAKE 1 TABLET BY MOUTH EVERY DAY AT BEDTIME 11/15/2015 11/17/2016 Inactive simvastatin 40 mg tablet RxNorm: 354569 1 Tablet(s) PO QD 10/11/2015 01/12/2019 Inactive simvastatin 40 mg tablet RxNorm: 638139 1 Tablet(s) PO QD 10/08/2015 10/10/2015 Inactive Ambien 5 mg tablet RxNorm: 645406 TAKE 1 TABLET BY MOUTH EVERY NIGHT AT BEDTIME 07/27/2015 11/15/2015 Inactive Plavix 75 mg tablet RxNorm: 532009 1 Tablet(s) PO QD 06/28/201512/29 Inactive [SAVINGS FOR NON-COVERED DRUGS -- BIN: 3585, PCN: ASPROD1, Group: XXXXX, ID# [id number], Questions: . THIS IS NOT INSURANCE.] Coreg 6.25 mg tablet RxNorm: 145390 1 TABLET(S) PO BID 04/19/2015 Inactive [SAVINGS FOR NON-COVERED DRUGS -- BIN:00 3585, PCN: ASPROD1, Group: XXXXX, ID# [id number], Questions: . THIS IS NOT INSURANCE.] simvastatin 40 mg tablet RxNorm: 546441 1 Tablet(s) PO QD 04/05/2015 04/04/2015 Inactive simvastatin 40 mg tablet RxNorm: 159183 1 Tablet(s) PO QD 04/05/2015 10/11/2015 Inactive Plavix 75 mg tablet RxNorm: 842033 1 TABLET(S) PO QD 03/22/201504/20 Inactive [SAVINGS FOR NON-COVERED DRUGS -- BIN:00 3585, PCN: ASPROD1, Group: XXXXX, ID# [id number], Questions: . THIS IS NOT INSURANCE.] Plavix 75 mg tablet RxNorm: 538417 1 Tablet(s) PO QD 03/22/201506/28 Inactive [SAVINGS FOR NON-COVERED DRUGS -- BIN:00 3585, PCN: ASPROD1, Group: XXXXX, ID# [id number], Questions: . THIS IS NOT INSURANCE.] Ambien 5 mg tablet RxNorm: 101908 1 Tablet(s) PO QHS 12/17/201407/28 Inactive [SAVINGS FOR NON-COVERED DRUGS -- BIN:00 3585, PCN: ASPROD1, Group: XXXXX, ID# [id number], Questions: . THIS IS NOT INSURANCE.] Coreg 6.25 mg tablet RxNorm: 624237 1 Tablet(s) PO BID 12/17/2014 Inactive [SAVINGS FOR NON-COVERED DRUGS -- BIN:00 3585, PCN: ASPROD1, Group: XXXXX, ID# XXXXXXX, Questions: . THIS IS NOT INSURANCE.] Plavix 75 mg tablet RxNorm: 546289 1 Tablet(s) PO QD 12/17/201403/16 Inactive [SAVINGS FOR NON-COVERED DRUGS -- BIN:00 3585, PCN: ASPROD1, Group: XXXXX, ID# XXXXXXX, Questions: . THIS IS NOT INSURANCE.] cyclobenzaprine 10 mg tablet RxNorm: 795272 1 Tablet(s) PO TID as needed for spasm 12/17/2014 03/16/2015 Inactive [SAVINGS FOR NON -COVERED DRUGS -- BIN:600606, PCN: ASPROD1, Group: XXXXX, ID# XXXXXXX, Questions: . THIS IS NOT INSURANCE.] Coreg 6.25 mg tablet RxNorm: 273881 1 Tablet(s) PO BID 10/21/201409/2014 Inactive [SAVINGS FOR NON-COVERED DRUGS -- BIN:00 3585, PCN: ASPROD1, Group: XXXXX, ID# XXXXXXX, Questions: . THIS IS NOT INSURANCE.] Plavix 75 mg tablet RxNorm: 591581 1 Tablet(s) PO QD 10/21/201412/16 Inactive [SAVINGS FOR NON-COVERED DRUGS -- BIN:00 3585, PCN: ASPROD1, Group: XXXXX, ID# XXXXXXX, Questions: . THIS IS NOT INSURANCE.] Plavix 75 mg tablet RxNorm: 210570 1 Tablet(s) PO QD Ne eds routine check up--last seen March 2012 09/21/2014 10/20/2014 Inactive [SAVINGS FOR UNINSURED PATIENTS -- BIN:366317, PCN: ASPROD1, Group: AME08, ID# [id number], Process claim through [employer], for questions: . THIS IS NOT INSURANCE.] Ambien 5 mg tablet RxNorm: 193341 1 Tablet(s) PO [facility] 09/21/201412/16 Inactive [SAVINGS FOR UNINSURED PATIENTS -- BIN:0 40005, PCN: ASPROD1, Group: AME08, ID# [id number], Process claim through [employer], for questions: . THIS IS NOT INSURANCE.] Coreg 6.25 mg tablet RxNorm: 358321 1 Tablet(s) PO BID 09/21/201411/2014 Inactive [SAVINGS FOR UNINSURED PATIENTS -- BIN:0 54825, PCN: ASPROD1, Group: AME08, ID# [id number], Process claim through [employer], for questions: . THIS IS NOT INSURANCE.] Plavix 75 mg tablet RxNorm: 560642 1 Tablet(s) PO QD Ne eds routine check up--last seen March 2012 08/04/2014 09/02/2014 Inactive [SAVINGS FOR UNINSURED PATIENTS -- BIN:513874, PCN: ASPROD1, Group: AME08, ID# [id number], Process claim through [employer], for questions: . THIS IS NOT INSURANCE.] Plavix 75 mg tablet RxNorm: 818968 1 Tablet(s) PO QD Ne eds routine check up--last seen March 2012 08/03/2014 08/03/2014 Inactive Protonix 40 mg tablet,delayed release RxNorm: 739940 1 Tablet(s ) PO QD 06/08/2014 02/17/2019 Inactive [SAVINGS FOR UNINSUR ED PATIENTS -- BIN:174917, PCN: ASPROD1, Group: AME08, ID# [id number], Process claim through [employer], for questions: . THIS IS NOT INSURANCE.] hydrocodone 10 mg-acetaminophen 325 mg tablet RxNorm: 105830 1 Tablet(s) PO BID as needed for pain 02/18/2014 03/31/2015 Inactive Coreg 6.25 mg tablet RxNorm: 505055 1 Tablet(s) PO BID 02/02/2014 Inactive Protonix 40 mg granules delayed-release packet RxNorm: 032160 1 Tablet(s) PO QD 01/13/2014 06/08/2014 Inactive Plavix 75 mg tablet RxNorm: 337055 1 Tablet(s) PO QD Ne eds routine check up--last seen March 2012 01/13/2014 08/02/2014 Inactive Plavix 75 mg tablet RxNorm: 437345 1 Tablet(s) PO QD Ne eds routine check up--last seen March 2012 12/09/2013 01/07/2014 Inactive Coreg 6.25 mg tablet RxNorm: 662177 1 Tablet(s) PO BID 12/09/2013 Inactive Cymbalta 60 mg capsule,delayed release RxNorm: 778054 1 Capsule (s) PO QD 10/31/2013 01/12/2014 Inactive Coreg 6.25 mg tablet RxNorm: 000556 1 Tablet(s) PO BID 10/31/2013 Inactive Plavix 75 mg tablet RxNorm: 499438 1 Tablet(s) PO QD Ne eds routine check up--last seen March 2012 10/31/2013 11/29/2013 Inactive Coreg 6.25 mg tablet RxNorm: 885177 1 Tablet(s) PO BID 10/31/2013 Inactive atorvastatin 40 mg tablet RxNorm: 935394 1 Tablet(s) PO QD 10/31/19 14 03/31/2015 Inactive Plavix 75 mg tablet RxNorm: 965477 1 Tablet(s) PO QD Ne eds routine check up--last seen March 2012 09/23/2013 10/30/2013 Inactive cyclobenzaprine 10 mg tablet RxNorm: 322966 1 Tablet(s) PO TID as needed for spasm 09/23/2013 No Stop Date Active cyclobenzaprine 10 mg tablet RxNorm: 688107 1 Tablet(s) PO TID as needed for spasm 07/04/2013 09/22/2013 Inactive atorvastatin 40 mg tablet RxNorm: 136224 1 Tablet(s) PO QD 06/23/20 13 10/30/2013 Inactive atorvastatin 40 mg tablet RxNorm: 981294 1 Tablet(s) PO QD 04/22/20 13 06/22/2013 Inactive Nucynta 50 mg tablet RxNorm: 681266 1-2 Tablet(s) PO Q6H as nee ded for pain 01/01/2013 01/12/2014 Inactive Ambien 5 mg tablet RxNorm: 842831 1 Tablet(s) PO QHS 10/16/201201/13 Inactive Plavix 75 mg tablet RxNorm: 259394 1 Tablet(s) PO QD 09/19/201209/13 Inactive Protonix 40 mg tablet,delayed release RxNorm: 748964 1 Tablet(s ) PO QD 09/19/2012 09/18/2012 Inactive simvastatin 40 mg tablet RxNorm: 597370 1 Tablet(s) PO QD 09/19/2012 02/23/2013 Inactive Protonix 40 mg tablet,delayed release RxNorm: 543016 1 Tablet(s ) PO QD 09/19/2012 09/13/2013 Inactive Ultram 50 mg tablet RxNorm: 815393 1-2 Tablet(s) PO QID as need ed for pain 09/19/2012 02/26/2017 Inactive propranolol 80 mg tablet RxNorm: 291930 1 Tablet(s) PO QHS 09/19/19 13 09/18/2012 Inactive Cymbalta 60 mg capsule,delayed release RxNorm: 046859 1 Capsule (s) PO QD 09/19/2012 09/18/2012 Inactive Cymbalta 60 mg capsule,delayed release RxNorm: 362544 1 Capsule (s) PO QD 09/19/2012 03/17/2013 Inactive propranolol 80 mg tablet RxNorm: 412181 1 Tablet(s) PO QHS 09/19/19 13 02/23/2013 Inactive hydrocodone-acetaminophen 10 mg-325 mg tablet RxNorm: 467518 2 1-2 Tablet(s) PO QID 07/25/2012 02/23/2013 Inactive Ambien 10 mg tablet RxNorm: 651252 1 Tablet(s) PO QHS as needed for sleep 07/10/2012 01/27/2013 Inactive propranolol 80 mg tablet RxNorm: 814007 1 Tablet(s) PO QHS 05/13/20 12 09/18/2012 Inactive hydrocodone-acetaminophen 10 mg-325 mg tablet RxNorm: 698179 2 1-2 Tablet(s) PO QID 05/02/2012 No Stop Date Active Restoril 15 mg Cap RxNorm: 376623 1-2 Capsule(s) PO QHS 05/02/2012 Inactive propranolol 80 mg tablet RxNorm: 965812 1 Tablet(s) PO QHS 05/02/20 12 05/12/2012 Inactive Chantix Starting Month Box 0.5 mg (11)-1 mg (42) Tabs in a Dose Pack RxNorm: 168981 Tablet(s) PO As Directed 04/01/2012 01/27/2013 Inactive simvastatin 40 mg tablet RxNorm: 761979 1 Tablet(s) PO QD 03/28/2012 09/18/2012 Inactive simvastatin 40 mg Tab RxNorm: 704235 1 Tablet(s) PO QD 03/22/201207/2012 Inactive Effient 10 mg Tab RxNorm: 556813 1 Tablet(s) PO QD 03/22/2012 012 Inactive Prilosec 40 mg Capsule, delayed release RxNorm: 834057 1 Capsul e(s) PO QD 03/22/2012 09/18/2012 Inactive Prilosec 40 mg Capsule, delayed release RxNorm: 794914 1 Capsul e(s) PO QD 03/19/2012 03/21/2012 Inactive Cymbalta 60 mg capsule,delayed release RxNorm: 856105 1 Capsule (s) PO QD 03/04/2012 08/30/2012 Inactive hydrocodone-acetaminophen 10 mg-325 mg Tab RxNorm: 6796395 1-2 T ablet(s) PO QID 01/23/2012 No Stop Date Active Cymbalta 60 mg Capsule, delayed release RxNorm: 384926 1 Capsul e(s) PO QD 01/23/2012 03/03/2012 Inactive Cipro 500 mg Tab RxNorm: 712289 1 Tablet(s) PO BID 12/20/2011 012 Inactive Cymbalta 60 mg Capsule, delayed release RxNorm: 490838 1 Capsul e(s) PO QD 12/13/2011 01/22/2012 Inactive nortriptyline 75 mg Cap RxNorm: 723145 1 Capsule(s) PO QHS 11/29/1904/02/2012 Inactive Cymbalta 60 mg Cap RxNorm: 379774 1 Capsule(s) PO QD 10/24/201112/11 Inactive propranolol 80 mg Tab RxNorm: 638632 1 Tablet(s) PO QHS 10/24/2011 Inactive hydrocodone-acetaminophen 10 mg-325 mg Tab RxNorm: 0134346 1-2 T ablet(s) PO QID 09/29/2011 No Stop Date Active hydrocodone-acetaminophen 10 mg-325 mg Tab RxNorm: 0299019 1-2 T ablet(s) PO QID 07/25/2011 No Stop Date Active hydrocodone-acetaminophen 10 mg-325 mg Tab RxNorm: 7802189 1-2 T ablet(s) PO QID 02/14/2011 No Stop Date Active Prilosec 40 mg Cap RxNorm: 907017 1 Capsule(s) PO 01/03/2011 04/28/20 19 Inactive nortriptyline 75 mg Cap RxNorm: 626519 1 Capsule(s) PO QHS 01/04/20 11 07/01/2011 Inactive Neurontin 600 mg Tab RxNorm: 416735 1 Tablet(s) PO QHS 12/08/201011/2011 Inactive hydrocodone-acetaminophen 5 mg-500 mg Tab RxNorm: 347798 2 Tablet(s) PO Q4-6H prn 10/20/2010 01/08/2011 Inactive Diltzac ER 240 mg Cap RxNorm: 140234 1 Capsule(s) PO QD 07/14/2010 Inactive Nortriptyline 75 mg Cap RxNorm: 401723 1 Capsule(s) PO QHS 05/09/20 10 01/12/2019 Inactive Neurontin 600 mg Tab RxNorm: 815575 1 Tablet(s) PO QD 03/17/201012/17 Inactive Nortriptyline 75 mg Cap RxNorm: 659591 1 Capsule(s) PO 01/12/2010 Inactive Nortriptyline 50 mg Cap RxNorm: 858194 1 Capsule(s) PO QHS 01/13/20 10 01/11/2010 Inactive Diltzac ER 240 mg Cap RxNorm: 875681 1 Capsule(s) PO QD 12/06/2009 Inactive aspirin 81 mg Tab RxNorm: 413060 1 Tablet(s) PO QD No Start Date Active Vitamin D3 2,000 unit tablet RxNorm: 980351 1 Tablet(s) PO QD No Star t Date Active Lyrica 75 mg capsule RxNorm: 538610 1 Capsule(s) PO QHS No Start Date Active ormupzefs-oobjxygiu-uljlck complex no.233 oral RxNorm: oral No Start Date Active primidone 50 mg tablet RxNorm: 043349 2 Tablet(s) PO BID No Start Date Active Prilosec 40 mg Capsule, delayed release RxNorm: 983699 1 Capsul e(s) PO QD No Start Date 03/18/2012 Inactive Prilosec 20 mg Cap RxNorm: 003864 1 Capsule(s) PO QHS No Start Date 0 01/02/2011 Inactive primidone 50 mg tablet RxNorm: 595827 1/2 Tablet(s) PO QHS for 1week then go full tab if needed No Start Date 05/01/2017 Inactive ProAir HFA 90 mcg/actuation aerosol inhaler RxNorm: 193872 2 Puff(s) INH Q4H as needed No Start Date 10/29/2017 Inactive clonazepam 0.5 mg tablet RxNorm: 953007 1/2 Tablet(s) PO BID No Sta rt Date 02/12/2017 Inactive Pepcid AC 10 mg Tab RxNorm: 389616 1 Tablet(s) PO QAM No Start Date 0 02/19/2011 Inactive Coreg Oral RxNorm: Oral No Start Date 01/12/2014 Inactive primidone 50 mg tablet RxNorm: 017430 1/2 Tablet(s) PO QD for 7 days then increase to 1 tablet at bedtime No Start Date 01/08/2017 Inactive Medrol (Jose) 4 mg tablets in a dose pack RxNorm: 579928 Tablet(s) PO As Directed No Start Date 01/12/2016 Inactive Plavix 75 mg tablet RxNorm: 193377 1 Tablet(s) PO QD No Start Date Inactive cyclobenzaprine 10 mg tablet RxNorm: 900930 1 Tablet(s) PO TID as needed for spasm No Start Date 07/03/2013 Inactive Bevespi Aerosphere 9 mcg-4.8 mcg HFA aerosol inhaler RxNorm: 9124688 2 Puff(s) INH BID No Start Date 02/18/2019 Inactive tramadol 50 mg tablet RxNorm: 981649 1-2 Tablet(s) PO TID as ne eded for pain No Start Date 01/12/2019 Inactive clonazepam 1 mg tablet RxNorm: 453936 1 Tablet(s) PO QAM No Start D ate 09/18/2018 Inactive hydrocodone-acetaminophen 5 mg-500 mg Tab RxNorm: 538220 2 Tablet(s) PO Q4-6H prn No Start Date 10/19/2010 Inactive lisinopril 20 mg Tab RxNorm: 956169 1/2 Tablet(s) PO QD No Start Da te 03/12/2011 Inactive Protonix 40 mg tablet,delayed release RxNorm: 542052 1 Tablet(s ) PO QD No Start Date 06/07/2014 Inactive Lipitor Oral RxNorm: Oral No Start Date 01/12/2014 Inactive primidone 50 mg tablet RxNorm: 235990 2 Tablet(s) PO QAM and 1 tablet at HS No Start Date 02/17/2019 Inactive hydrocodone-acetaminophen 10 mg-325 mg Tab RxNorm: 6775907 1-2 T ablet(s) PO QID No Start Date 02/13/2011 Inactive Ultram 50 mg tablet RxNorm: 741413 1-2 Tablet(s) PO QID as need ed for pain No Start Date 09/18/2012 Inactive Effient 10 mg Tab RxNorm: 736904 1 Tablet(s) PO QD No Start Date 01/2012 Inactive Bevespi Aerosphere 9 mcg-4.8 mcg HFA aerosol inhaler RxNorm: 5361268 2 Puff(s) INH BID No Start Date 10/29/2017 Inactive Neurontin Oral RxNorm: Oral No Start Date 01/12/2010 Inactive primidone 50 mg tablet RxNorm: 200281 1 Tablet(s) PO QD No Start Da te 01/12/2019 Inactive Chantix Starting Month Box 0.5 mg (11)-1 mg (42) Tabs in a Dose Pack RxNorm: 719748 Tablet(s) PO No Start Date 03/31/2012 Inactive atenolol 25 mg Tab RxNorm: 950145 1 Tablet(s) PO QD No Start Date 02/2012 Inactive Neurontin 600 mg Tab RxNorm: 313738 1 Tablet(s) PO QD No Start Date 0 03/16/2010 Inactive Nucynta 50 mg tablet RxNorm: 749300 1-2 Tablet(s) PO Q6H as nee ded for pain No Start Date 12/31/2012 Inactive simvastatin 40 mg Tab RxNorm: 533439 1 Tablet(s) PO QD No Start Date 03/21/2012 Inactive Medication Administered No Medication Administered data Immunizations Vaccine Codes Date Status Influenza CVX: 135 07/04/2017 Complete Results Observation Observation Code Item Item Code Result Date S [facility] Location COMPLETE BLOOD COUNT [id number] WBC 4.9 10e9/L 09/04/20 18 Unknown COMPLETE BLOOD COUNT [id number] RBC 4.42 10e12/L 2017 Unknown COMPLETE BLOOD COUNT [id number] HEMOGLOBIN 13.4 g/dL 09/04/20 18 Unknown COMPLETE BLOOD COUNT 4102803 HEMATOCRIT 40.5 % 09/04/20 18 Unknown COMPLETE BLOOD COUNT 3036802 MCV 91.6 fL 8 Unknown COMPLETE BLOOD COUNT 1629512 MCH 30.3 pg 8 Unknown COMPLETE BLOOD COUNT 6290447 MCHC 33.1 g/dL 8 Unknown COMPLETE BLOOD COUNT 0594564 PLATELET COUNT 224 10e9/L Unknown COMPLETE BLOOD COUNT 8197328 Mean Plt Volume 9.9 fL Unknown COMPLETE BLOOD COUNT 1866081 Neut Auto 60.8 % 8 Unknown COMPLETE BLOOD COUNT 4093422 Lymph Auto 26.8 % 09/04/20 18 Unknown COMPLETE BLOOD COUNT 9940626 [place] Auto 10.4 % 8 Unknown COMPLETE BLOOD COUNT 6009650 RDW 12.8 % 8 Unknown COMPLETE BLOOD COUNT 5441579 Eos Auto 1.6 % 8 Unknown COMPLETE BLOOD COUNT 0910583 Baso Auto 0.4 % 8 Unknown COMPLETE BLOOD COUNT 8485319 Neutrophil Abs 2.98 10e9/L Unknown COMPLETE BLOOD COUNT 2055065 Lymphocyte Abs 1.31 10e9/L Unknown COMPLETE BLOOD COUNT 0393842 Monocyte Abs 0.51 10e9/L 08/17 Unknown COMPLETE BLOOD COUNT 0104578 Eosinophil Abs 0.08 10e9/L Unknown COMPLETE BLOOD COUNT 8273605 RDW-SD 41.6 fL 8 Unknown COMPLETE BLOOD COUNT [id number] Basophil Abs 0.02 10e9/L 08/17 Unknown COMPREHENSIVE METABOLIC 41181 AST 16 U/L 2017 Unknown COMPREHENSIVE METABOLIC 27978 ALT 8 U/L 2017 Unknown COMPREHENSIVE METABOLIC 94222 BUN 12 mg/dL 2017 Unknown COMPREHENSIVE METABOLIC 39216 ALBUMIN 4.4 g/dL 2017 Unknown COMPREHENSIVE METABOLIC 31330 CHLORIDE 107 mmol/L 09/04 Unknown COMPREHENSIVE METABOLIC 34037 Bili Total 1.0 mg/dL 09/04 Unknown COMPREHENSIVE METABOLIC 18448 ALK PHOS 58 U/L 2017 Unknown COMPREHENSIVE METABOLIC 07398 SODIUM 142 mmol/L 09/04 Unknown COMPREHENSIVE METABOLIC 12828 CREATININE 0.97 mg/dL 08/17 Unknown COMPREHENSIVE METABOLIC 66199 CALCIUM 9.2 mg/dL 2017 Unknown COMPREHENSIVE METABOLIC 79760 POTASSIUM 4.6 mmol/L 09/04 Unknown COMPREHENSIVE METABOLIC 54461 Total Protein 6.5 g/dL Unknown COMPREHENSIVE METABOLIC 16719 Glucose 96 mg/dL 2017 Unknown COMPREHENSIVE METABOLIC 40374 Bicarbonate 29 mmol/L 08/17 Unknown COMPREHENSIVE METABOLIC 03374 AGAP 6 mmol/L 2017 Unknown LIPID GROUP 99145 Cholesterol 182 mg/dL 09/04/2018 Unkno wn LIPID GROUP 86835 Triglyceride 84 mg/dL 09/04/2018 Unkn own LIPID GROUP 78734 HDL CHOLESTEROL 76 mg/dL 09/04/2018 U nknown LIPID GROUP 38345 Chol/HDL Ratio 2.39 ratio 09/04/2018 U nknown LIPID GROUP 19260 NON-HDL Chol 106 mg/dL 09/04/2018 Unkn own LIPID GROUP 53714 LDL Cholesterol 89 mg/dL 09/04/2018 U nknown GFR CALC 8135976 GFR Non Afr Amr >60 mL/min 09/04/2018 Un known GFR CALC 3574611 GFR Afr Amr >60 mL/min 09/04/2018 Unknow n THYROID STIMULATING HORMONE 14165 TSH 0.713 uIU/mL 09/04/2018 Unknown PSA EQUIMOLAR BARBIE 88552 PSA Total 0.66 ng/mL 8 Unknown A FOOD C P 9449558 [place] Cl Class 0 11/17/2017 Unknown A FOOD C P 9625034 [place] Ct <0.35 kU/L 11/17/2017 Unknow n A FOOD C P 5141791 [place] Cl Class 0 11/17/2017 Unkn own A FOOD C P 2187208 [place] [facility] <0.35 kU/L 11/17/2017 Unk nown A FOOD C P 5671604 [place] White Cl Class 0 11/17/2017 Unkno wn A FOOD C P 3904930 Egg White Ct <0.35 kU/L 11/17/2017 Unkn own A FOOD C P 8367576 Egg Yolk Cl Class 0 11/17/2017 Unknow n A FOOD C P 2556593 Egg Yolk Ct <0.35 kU/L 11/17/2017 Unkno wn A FOOD C P 3491627 Cow Milk Cl Class 0 11/17/2017 Unknow n A FOOD C P 5205883 Cow Milk Ct <0.35 kU/L 11/17/2017 Unkno wn A FOOD C P 5595188 Peanut Cl Class 0 11/17/2017 Unknown A FOOD C P 5924230 Peanut Ct <0.35 kU/L 11/17/2017 Unknown A FOOD C P 7472063 Sh[place] Cl Class 0 11/17/2017 Unknown A FOOD C P 2307613 [place] Ct <0.35 kU/L 11/17/2017 Unknown A FOOD C P 8562168 [place] Cl Class 0 11/17/2017 Unknown A FOOD C P 6376371 [place] Ct <0.35 kU/L 11/17/2017 Unknow n A FOOD C P 8879629 [place] Cl Class 0 11/17/2017 Unknown A FOOD C P 3871772 Wheat Ct <0.35 kU/L 11/17/2017 Unknown A FOOD C P 8089439 Potato Cl Class 0 11/17/2017 Unknown A FOOD C P 7361185 Potato Ct <0.35 kU/L 11/17/2017 Unknown A FOOD C P 6591825 Beef Cl Class 2 11/17/2017 Unknown A FOOD C P 9135967 Beef Ct 0.88 kU/L 11/17/2017 Unknown A FOOD C P 6453115 [place] Cl Class 0 11/17/2017 Unknown A FOOD C P 6234743 [place] Ct <0.35 kU/L 11/17/2017 Unknown A FOOD C P 3509041 Pork Cl Class 0 11/17/2017 Unknown A FOOD C P 4536390 [place] Ct <0.35 kU/L 11/17/2017 Unknown A FOOD C P 3098236 [place] Cl Class 0 11/17/2017 Unknown A FOOD C P 1115455 [place] Ct <0.35 kU/L 11/17/2017 Unknown A FOOD C P 4825764 [place] Cl Class 0 11/17/2017 Unkn own A FOOD C P 8229642 [place] Ct <0.35 kU/L 11/17/2017 Unk nown A FOOD C P 2471057 [place] Cl Class 0 11/17/2017 Unknown A FOOD C P 3367452 [place] Ct <0.35 kU/L 11/17/2017 Unknown A FOOD C P 3647726 [place] Cl Class 0 11/17/2017 Unknown A FOOD C P 4295130 [place] Ct <0.35 kU/L 11/17/2017 Unknown A FOOD C P 8595078 [place] CL Class 0 11/17/2017 Unknown A FOOD C P 1096700 [place] <0.35 kU/L 11/17/2017 Unknown A FOOD C P 8566160 [place] Cl Class 0 11/17/2017 Unknown A FOOD C P 6932643 [place] Ct <0.35 kU/L 11/17/2017 Unknown A FOOD C P 9063556 Oat Cl Class 0 11/17/2017 Unknown A FOOD C P 8426918 Oat Ct <0.35 kU/L 11/17/2017 Unknown A FOOD C P 8860294 [place] Cl Class 0 11/17/2017 Unknown A FOOD C P 7406849 [place] Ct <0.35 kU/L 11/17/2017 Unknown A FOOD C P 6780449 [place] CL Class 0 11/17/2017 Un known A FOOD C P 8423194 [place] Ct <0.35 kU/L 11/17/2017 U nknown A FOOD C P 0596032 [place] Cl Class 0 11/17/2017 Unknown A FOOD C P 2898426 [place] Ct <0.35 kU/L 11/17/2017 Unknown A FOOD C P 0072975 [place] Meat Cl Class 0 11/17/2017 Unkn own A FOOD C P 0792810 [place] Ct <0.35 kU/L 11/17/2017 Unk nown A NUTS PNL 7269424 Peanut Cl Class 0 11/17/2017 Unknown A NUTS PNL 3013033 Peanut Ct <0.35 kU/L 11/17/2017 Unknown A NUTS PNL 1335970 [place] Meat Cl Class 0 11/17/2017 Unk nown A NUTS PNL 2964692 [place] [facility] <0.35 kU/L 11/17/2017 Un known A NUTS PNL 9744923 [place] Cl Class 0 11/17/2017 Unkn own A NUTS PNL 8537304 [place] Ct <0.35 kU/L 11/17/2017 Unk nown A NUTS PNL 1757366 [place] Cl Class 0 11/17/2017 Unknown A NUTS PNL 9353161 [place] Ct <0.35 kU/L 11/17/2017 Unknown A NUTS PNL 6722645 [place] Cl Class 0 11/17/2017 Unknow n A NUTS PNL 0223365 [place] Ct <0.35 kU/L 11/17/2017 Unkno wn A NUTS PNL 6221401 [place] Cl Class 0 11/17/2017 Unkno wn A NUTS PNL 5951293 [place] Ct <0.35 kU/L 11/17/2017 Unkn own A NUTS PNL 4927457 [place] Cl Class 0 11/17/2017 Unknown A NUTS PNL 3346315 [place] Ct <0.35 kU/L 11/17/2017 Unknown A NUTS PNL 5628551 [place] Cl Class 0 11/17/2017 Unkno wn A NUTS PNL 2924053 [place] Ct <0.35 kU/L 11/17/2017 Unkn own A NUTS PNL 5273143 Allergen Interp See Note 11/17/2017 Un known A FRT/VG P 8334124 [place] Cl Class 0 11/17/2017 Unkn own A FRT/VG P 7301220 [place] [facility] <0.35 kU/L 11/17/2017 Unk nown A FRT/VG P 8737538 [place] Cl Class 0 11/17/2017 Unknown A FRT/VG P 6830407 [place] Ct <0.35 kU/L 11/17/2017 Unknown A FRT/VG P 2007399 [place] Cl Class 0 11/17/2017 Unkn own A FRT/VG P 9554293 [place] Ct <0.35 kU/L 11/17/2017 Unk nown A FRT/VG P 7491542 [place] Cl Class 0 11/17/2017 Unknown A FRT/VG P 3949905 [place] Ct <0.35 kU/L 11/17/2017 Unknown A FRT/VG P 8389248 [place] Cl Class 0 11/17/2017 Unknown A FRT/VG P 0231712 [place] Ct <0.35 kU/L 11/17/2017 Unknown A FRT/VG P 6174299 [place] Cl Class 1 11/17/2017 Unknown A FRT/VG P 2010862 [place] Ct 0.48 kU/L 11/17/2017 Unknown A FRT/VG P 2848723 [place] Cl Class 0 11/17/2017 Unk nown A FRT/VG P 5614875 [place] Ct <0.35 kU/L 11/17/2017 Un known A FRT/VG P 0435837 [place] Cl Class 0 11/17/2017 Unk nown A FRT/VG P 6331336 [place] Ct <0.35 kU/L 11/17/2017 Un known A FRT/VG P 6589275 [place] Cl Class 0 11/17/2017 Unknown A FRT/VG P 6241660 [place] Ct <0.35 kU/L 11/17/2017 Unknown A FRT/VG P 2484328 [place] Cl Class 0 11/17/2017 Unknown A FRT/VG P 8474018 [place] Ct <0.35 kU/L 11/17/2017 Unknown A FRT/VG P 3193144 [place] Cl Class 0 11/17/2017 Unkn own A FRT/VG P 6735685 [place] Ct <0.35 kU/L 11/17/2017 Unk nown A FRT/VG P 3681149 [place]t [place] Cl Class 0 11/17/2017 Unkn own A FRT/VG P 9256595 Swt [place] Ct <0.35 kU/L 11/17/2017 Unk nown THYROID STIMULATING HORMONE 22434 TSH 1.371 uIU/mL 09/03/2017 Unknown FREE T4 94066 T4 Free 1.26 ng/dL 09/03/2017 Unknown ASSAY TRIIODOTHYRONINE (T3) 57605 T3 Total 0.9 ng/mL Unknown COMPLETE BLOOD COUNT 4687787 WBC 5.9 10e9/L 07/31/20 17 Unknown COMPLETE BLOOD COUNT 5730446 RBC 4.64 10e12/L 2016 Unknown COMPLETE BLOOD COUNT 8161849 HEMOGLOBIN 14.2 g/dL 07/31/20 17 Unknown COMPLETE BLOOD COUNT 1204372 HEMATOCRIT 42.1 % 07/31/20 17 Unknown COMPLETE BLOOD COUNT 1727768 MCV 90.7 fL 7 Unknown COMPLETE BLOOD COUNT 7488442 MCH 30.6 pg 7 Unknown COMPLETE BLOOD COUNT 6845290 MCHC 33.7 g/dL 7 Unknown COMPLETE BLOOD COUNT 0661664 PLATELET COUNT 195 10e9/L Unknown COMPLETE BLOOD COUNT 0938905 Mean Plt Volume 10.0 fL Unknown COMPLETE BLOOD COUNT 6540879 Neut Auto 47.5 % 7 Unknown COMPLETE BLOOD COUNT 5329903 Lymph Auto 37.4 % 07/31/20 17 Unknown COMPLETE BLOOD COUNT 4146488 [place] Auto 11.7 % 7 Unknown COMPLETE BLOOD COUNT 7900770 Eos Auto 3.2 % 7 Unknown COMPLETE BLOOD COUNT 8189835 RDW 12.8 % 7 Unknown COMPLETE BLOOD COUNT 7094304 Baso Auto 0.2 % 7 Unknown COMPLETE BLOOD COUNT 6543386 Neutrophil Abs 2.80 10e9/L Unknown COMPLETE BLOOD COUNT 2473231 Lymphocyte Abs 2.21 10e9/L Unknown COMPLETE BLOOD COUNT 1808563 Monocyte Abs 0.69 10e9/L 07/18 Unknown COMPLETE BLOOD COUNT 0379208 Eosinophil Abs 0.19 10e9/L Unknown COMPLETE BLOOD COUNT 0268889 RDW-SD 41.6 fL 7 Unknown COMPLETE BLOOD COUNT 3883392 Basophil Abs 0.01 10e9/L 07/18 Unknown LIPID GROUP 04123 Cholesterol 186 mg/dL 07/31/2017 Unkno wn LIPID GROUP 51595 Triglyceride 129 mg/dL 07/31/2017 Unkn own LIPID GROUP 59936 HDL CHOLESTEROL 79 mg/dL 07/31/2017 U nknown LIPID GROUP 27468 Chol/HDL Ratio 2.35 ratio 07/31/2017 U nknown LIPID GROUP 99690 NON-HDL Chol 107 mg/dL 07/31/2017 Unkn own LIPID GROUP 08713 LDL Cholesterol 81 mg/dL 07/31/2017 U nknown GFR CALC 4864666 GFR Non Afr Amr >60 mL/min 07/31/2017 Un known GFR CALC 2779828 GFR Afr Amr >60 mL/min 07/31/2017 Unknow n COMPREHENSIVE METABOLIC 27456 AST 19 U/L 2016 Unknown COMPREHENSIVE METABOLIC 65562 ALT 12 U/L 2016 Unknown COMPREHENSIVE METABOLIC 55064 BUN 15 mg/dL 2016 Unknown COMPREHENSIVE METABOLIC 12229 ALBUMIN 4.4 g/dL 2016 Unknown COMPREHENSIVE METABOLIC 33651 CHLORIDE 102 mmol/L 07/31 Unknown COMPREHENSIVE METABOLIC 88841 Bili Total 0.9 mg/dL 07/31 Unknown COMPREHENSIVE METABOLIC 99381 ALK PHOS 53 U/L 2016 Unknown COMPREHENSIVE METABOLIC 83727 SODIUM 138 mmol/L 07/31 Unknown COMPREHENSIVE METABOLIC 86303 CREATININE 1.06 mg/dL 07/18 Unknown COMPREHENSIVE METABOLIC 58326 CALCIUM 9.3 mg/dL 2016 Unknown COMPREHENSIVE METABOLIC 23637 POTASSIUM 4.0 mmol/L 07/31 Unknown COMPREHENSIVE METABOLIC 23731 Total Protein 6.8 g/dL Unknown COMPREHENSIVE METABOLIC 37014 Glucose 86 mg/dL 2016 Unknown COMPREHENSIVE METABOLIC 71550 Bicarbonate 28 mmol/L 07/18 Unknown COMPREHENSIVE METABOLIC 24048 AGAP 8 mmol/L 2016 Unknown COMPREHENSIVE METABOLIC 61674 AST 18 U/L 2015 Unknown COMPREHENSIVE METABOLIC 72597 ALT 9 U/L 2015 Unknown COMPREHENSIVE METABOLIC 74489 BUN 11 mg/dL 2015 Unknown COMPREHENSIVE METABOLIC 53031 ALBUMIN 4.2 g/dL 2015 Unknown COMPREHENSIVE METABOLIC 75998 CHLORIDE 104 mmol/L 05/19 Unknown COMPREHENSIVE METABOLIC 56274 Bili Total 1.2 mg/dL 05/19 Unknown COMPREHENSIVE METABOLIC 11562 ALK PHOS 54 U/L 2015 Unknown COMPREHENSIVE METABOLIC 16081 SODIUM 140 mmol/L 05/19 Unknown COMPREHENSIVE METABOLIC 98553 CREATININE 1.03 mg/dL 10/2015 Unknown COMPREHENSIVE METABOLIC 07046 CALCIUM 9.3 mg/dL 2015 Unknown COMPREHENSIVE METABOLIC 01428 POTASSIUM 4.9 mmol/L 05/19 Unknown COMPREHENSIVE METABOLIC 50119 Total Protein 6.7 g/dL Unknown COMPREHENSIVE METABOLIC 39607 Glucose 92 mg/dL 2015 Unknown COMPREHENSIVE METABOLIC 38620 Bicarbonate 28 mmol/L 10/2015 Unknown COMPREHENSIVE METABOLIC 23319 AGAP 8 mmol/L 2015 Unknown THYROID STIMULATING HORMONE 68013 TSH 1.545 uIU/mL 05/19/2016 Unknown GFR CALC 6936605 GFR Non Afr Amr >60 mL/min 05/19/2016 Un known GFR CALC 9092400 GFR Afr Amr >60 mL/min 05/19/2016 Unknow n VITAMIN B 12 34930 VITAMIN B12 298 pg/mL 05/19/2016 Unkn own COMPLETE BLOOD COUNT 5651250 WBC 5.2 10e9/L 05/19/20 16 Unknown COMPLETE BLOOD COUNT 7268501 RBC 4.34 10e12/L 2015 Unknown COMPLETE BLOOD COUNT 4916478 HEMOGLOBIN 12.9 g/dL 05/19/20 16 Unknown COMPLETE BLOOD COUNT 5069738 HEMATOCRIT 38.9 % 05/19/20 16 Unknown COMPLETE BLOOD COUNT 8501263 MCV 89.6 fL 6 Unknown COMPLETE BLOOD COUNT 7534042 MCH 29.7 pg 6 Unknown COMPLETE BLOOD COUNT 9176188 MCHC 33.2 g/dL 6 Unknown COMPLETE BLOOD COUNT 8369006 PLATELET COUNT 200 10e9/L 10/2015 Unknown COMPLETE BLOOD COUNT 0289799 Mean Plt Volume 10.1 fL 10/2015 Unknown COMPLETE BLOOD COUNT 8048127 Neut Auto 45.4 % 6 Unknown COMPLETE BLOOD COUNT 3938892 Lymph Auto 35.6 % 05/19/20 16 Unknown COMPLETE BLOOD COUNT 9389915 [place] Auto 11.9 % 6 Unknown COMPLETE BLOOD COUNT 9965456 RDW 12.7 % 6 Unknown COMPLETE BLOOD COUNT 8695965 Eos Auto 6.7 % 6 Unknown COMPLETE BLOOD COUNT 6717303 Baso Auto 0.4 % 6 Unknown COMPLETE BLOOD COUNT 3501284 Neutrophil Abs 2.36 10e9/L Unknown COMPLETE BLOOD COUNT 9785684 Lymphocyte Abs 1.85 10e9/L Unknown COMPLETE BLOOD COUNT 4391107 Monocyte Abs 0.62 10e9/L 10/2015 Unknown COMPLETE BLOOD COUNT 7716245 Eosinophil Abs 0.35 10e9/L Unknown COMPLETE BLOOD COUNT 2163162 RDW-SD 40.6 fL 6 Unknown COMPLETE BLOOD COUNT 2340821 Basophil Abs 0.02 10e9/L 10/2015 Unknown LIPID GROUP 38089 Cholesterol 197 mg/dL 05/19/2016 Unkno wn LIPID GROUP 11878 Triglyceride 92 mg/dL 05/19/2016 Unkn own LIPID GROUP 05822 HDL CHOLESTEROL 58 mg/dL 05/19/2016 U nknown LIPID GROUP 65531 Chol/HDL Ratio 3.40 ratio 05/19/2016 U nknown LIPID GROUP 89552 NON-HDL Chol 139 mg/dL 05/19/2016 Unkn own LIPID GROUP 33017 LDL Cholesterol 121 mg/dL 05/19/2016 U nknown FREE T4 78230 T4 Free 1.19 ng/dL 05/19/2016 Unknown COMPREHENSIVE METABOLIC 64321 AST 19 U/L 2014 Unknown COMPREHENSIVE METABOLIC 34145 ALT 10 IU/L 2014 Unknown COMPREHENSIVE METABOLIC 60267 BUN 20 MG/DL 2014 Unknown COMPREHENSIVE METABOLIC 63933 ALBUMIN 4.4 GM/DL 2014 Unknown COMPREHENSIVE METABOLIC 13419 CHLORIDE 104 MMOL/L 04/05 Unknown COMPREHENSIVE METABOLIC 72802 BILI TOT 2.2 MG/DL 2014 Unknown COMPREHENSIVE METABOLIC 43029 ALK PHOS 55 U/L 2014 Unknown COMPREHENSIVE METABOLIC 49440 SODIUM 138 MMOL/L 04/05 Unknown COMPREHENSIVE METABOLIC 29268 CREATININE 1.04 MG/DL 03/18 Unknown COMPREHENSIVE METABOLIC 61559 CALCIUM 9.3 MG/DL 2014 Unknown COMPREHENSIVE METABOLIC 33380 POTASSIUM 4.5 MMOL/L 04/05 Unknown COMPREHENSIVE METABOLIC 81775 PROT TOT 6.7 GM/DL 2014 Unknown COMPREHENSIVE METABOLIC 97970 Glucose 77 MG/DL 2014 Unknown COMPREHENSIVE METABOLIC 33447 BICARB 25 MMOL/L 2014 Unknown COMPREHENSIVE METABOLIC 60614 ANION GAP 9 MEQ/L 2014 Unknown GFR CALC 4007531 GFR AA >60 ML/MIN 04/05/2015 Unknown GFR CALC 5010836 GFR NON-AA >60 ML/MIN 04/05/2015 Unknown LIPID GROUP 38664 HDL TEST 60 MG/DL 04/05/2015 Unknown LIPID GROUP 88752 TRIG 70 MG/DL 04/05/2015 Unknown LIPID GROUP 25258 TEST LDL 137 MG/DL 04/05/2015 Unknown LIPID GROUP 20080 CHOL 211 MG/DL 04/05/2015 Unknown LIPID GROUP 77984 RCHOL/HDL 3.52 RATIO 04/05/2015 Unknow n LIPID GROUP 65184 NON-HDL CH 151 MG/DL 04/05/2015 Unknow n COMPLETE BLOOD COUNT 3038178 WBC 5.3 10e9/L 04/05/20 15 Unknown COMPLETE BLOOD COUNT 1304840 RBC 4.42 10e12/L 2014 Unknown COMPLETE BLOOD COUNT 6787968 HGB 13.4 g/dL 5 Unknown COMPLETE BLOOD COUNT 1842158 HCT DET 39.6 % 5 Unknown COMPLETE BLOOD COUNT 8980123 MCV 89.6 fL 5 Unknown COMPLETE BLOOD COUNT 0313260 MCH 30.3 pg 5 Unknown COMPLETE BLOOD COUNT 1717355 MCHC 33.8 g/dL 5 Unknown COMPLETE BLOOD COUNT 3098221 PLT 201 10e9/L 04/05/20 15 Unknown COMPLETE BLOOD COUNT 9238997 MPV 10.3 fL 5 Unknown COMPLETE BLOOD COUNT 7345653 LUPE % 56.4 % 5 Unknown COMPLETE BLOOD COUNT 2655043 LY % 24.8 % 5 Unknown COMPLETE BLOOD COUNT 6567327 MON % 12.8 % 5 Unknown COMPLETE BLOOD COUNT 8712401 EOS % 5.4 % 5 Unknown COMPLETE BLOOD COUNT 1107964 BASO % 0.6 % 5 Unknown COMPLETE BLOOD COUNT 2774492 RDW 13.2 % 5 Unknown COMPLETE BLOOD COUNT 3103192 ABS LUPE 2.99 10e9/L 015 Unknown COMPLETE BLOOD COUNT 1276001 ABS LYMPH 1.31 10e9/L 015 Unknown COMPLETE BLOOD COUNT [id number] ABS MONO 0.68 10e9/L 015 Unknown COMPLETE BLOOD COUNT 7967474 ABS EOS 0.29 10e9/L 015 Unknown COMPLETE BLOOD COUNT 2063225 ABS BASO 0.03 10e9/L 015 Unknown COMPLETE BLOOD COUNT 2740078 RDW-SD 42.3 fL 5 Unknown LIPID GROUP 43531 HDL TEST 51 MG/DL 07/19/2012 Unknown LIPID GROUP 18018 TRIG 129 MG/DL 07/19/2012 Unknown LIPID GROUP 87279 TEST LDL 98 MG/DL 07/19/2012 Unknown LIPID GROUP 80281 CHOL 175 MG/DL 07/19/2012 Unknown LIPID GROUP 13357 RCHOL/HDL 3.43 RATIO 07/19/2012 Unknow n COMPREHENSIVE METABOLIC 84181 AST 18 U/L 2011 Unknown COMPREHENSIVE METABOLIC 57917 ALT 12 IU/L 2011 Unknown COMPREHENSIVE METABOLIC 58624 BUN 10 MG/DL 2011 Unknown COMPREHENSIVE METABOLIC 25952 ALBUMIN 4.1 GM/DL 2011 Unknown COMPREHENSIVE METABOLIC 59027 CHLORIDE 103 MMOL/L 07/19 Unknown COMPREHENSIVE METABOLIC 30846 BILI TOT 0.9 MG/DL 2011 Unknown COMPREHENSIVE METABOLIC 94217 ALK PHOS 62 U/L 2011 Unknown COMPREHENSIVE METABOLIC 79903 SODIUM 138 MMOL/L 07/19 Unknown COMPREHENSIVE METABOLIC 78252 CREATININE 1.08 MG/DL 10/2011 Unknown COMPREHENSIVE METABOLIC 54091 CALCIUM 9.1 MG/DL 2011 Unknown COMPREHENSIVE METABOLIC 34332 POTASSIUM 4.2 MMOL/L 07/19 Unknown COMPREHENSIVE METABOLIC 22760 PROT TOT 6.7 GM/DL 2011 Unknown COMPREHENSIVE METABOLIC 53111 Glucose 101 MG/DL 2011 Unknown COMPREHENSIVE METABOLIC 96585 BICARB 27 MMOL/L 2011 Unknown COMPREHENSIVE METABOLIC 41687 ANION GAP 8 MEQ/L 2011 Unknown GFR CALC 3213967 GFR AA >60 ML/MIN 07/19/2012 Unknown GFR CALC 4434994 GFR NON-AA >60 ML/MIN 07/19/2012 Unknown Procedures Procedure Codes Date ROUTINE VENIPUNCTURE CPT-4: 13344 09/30/2019 COMPREHEN METABOLIC PANEL CPT-4: 16518 09/30/2019 COMPLETE CBC W/AUTO DIFF WBC CPT-4: 61824 09/30/2019 ASSAY OF PSA TOTAL CPT-4: 66377 09/30/2019 ASSAY THYROID STIM HORMONE CPT-4: 01654 09/30/2019 LIPID PANEL CPT-4: 67000 09/30/2019 ROUTINE VENIPUNCTURE CPT-4: 20362 09/24/2019 COMPLETE CBC W/AUTO DIFF WBC CPT-4: 19720 09/24/2019 COMPREHEN METABOLIC PANEL CPT-4: 79753 09/24/2019 LIPID PANEL CPT-4: 46162 09/24/2019 ASSAY THYROID STIM HORMONE CPT-4: 11612 09/24/2019 THER/PROPH/DIAG INJ SC/IM CPT-4: 46944 01/13/2019 TRIAMCINOLONE ACET INJ NOS CPT-4: J3301 01/13/2019 DEXAMETHASONE SODIUM PHOS CPT-4: J1100 01/13/2019 ROUTINE VENIPUNCTURE CPT-4: 93124 09/04/2018 COMPREHEN METABOLIC PANEL CPT-4: 26052 09/04/2018 COMPLETE CBC W/AUTO DIFF WBC CPT-4: 01454 09/04/2018 LIPID PANEL CPT-4: 77636 09/04/2018 ASSAY OF PSA TOTAL CPT-4: 45924 09/04/2018 ASSAY THYROID STIM HORMONE CPT-4: 39216 09/04/2018 URINALYSIS NONAUTO W/O SCOPE CPT-4: 86448 05/15/2018 ROUTINE VENIPUNCTURE CPT-4: 10634 11/16/2017 A FRT/VG P CPT-4: 2270980 11/16/2017 A FOOD C P CPT-4: 0295367 11/16/2017 A NUTS PNL CPT-4: 2609754 11/16/2017 THER/PROPH/DIAG INJ SC/IM CPT-4: 93104 11/06/2017 TRIAMCINOLONE ACET INJ NOS CPT-4: J3301 11/06/2017 DEXAMETHASONE SODIUM PHOS CPT-4: J1100 11/06/2017 ROUTINE VENIPUNCTURE CPT-4: 07268 09/03/2017 ASSAY OF FREE THYROXINE CPT-4: 31041 09/03/2017 ASSAY THYROID STIM HORMONE CPT-4: 00622 09/03/2017 ASSAY TRIIODOTHYRONINE (T3) CPT-4: 11929 09/03/2017 ROUTINE VENIPUNCTURE CPT-4: 83079 07/31/2017 COMPREHEN METABOLIC PANEL CPT-4: 53844 07/31/2017 COMPLETE CBC W/AUTO DIFF WBC CPT-4: 01804 07/31/2017 LIPID PANEL CPT-4: 41901 07/31/2017 FLU VACC PRSV FREE INC ANTIG 65 AND OLDER CPT-4: 12631 07/04/2017 ADMIN INFLUENZA VIRUS VAC CPT-4: G0008 07/04/2017 ROUTINE VENIPUNCTURE CPT-4: 69984 02/26/2017 ASSAY THYROID STIM HORMONE CPT-4: 80743 02/26/2017 COMPREHEN METABOLIC PANEL CPT-4: 25663 02/26/2017 COMPLETE CBC W/AUTO DIFF WBC CPT-4: 43608 02/26/2017 LIPID PANEL CPT-4: 17140 02/26/2017 ASSAY OF PSA TOTAL CPT-4: 18812 02/26/2017 FLUZONE, 5ML (Medicare) CPT-4: Q2038 06/28/2016 ADMIN INFLUENZA VIRUS VAC CPT-4: G0008 06/28/2016 ROUTINE VENIPUNCTURE CPT-4: 04620 05/19/2016 ASSAY OF FREE THYROXINE CPT-4: 72405 05/19/2016 ASSAY THYROID STIM HORMONE CPT-4: 08304 05/19/2016 COMPREHEN METABOLIC PANEL CPT-4: 49518 05/19/2016 COMPLETE CBC W/AUTO DIFF WBC CPT-4: 02023 05/19/2016 LIPID PANEL CPT-4: 24596 05/19/2016 VITAMIN B-12 CPT-4: 98827 05/19/2016 PPPS, initial visit CPT-4: G0438 05/10/2016 ROUTINE VENIPUNCTURE CPT-4: 61507 04/05/2015 ASSAY THYROID STIM HORMONE CPT-4: 98994 04/05/2015 COMPREHEN METABOLIC PANEL CPT-4: 38720 04/05/2015 COMPLETE CBC W/AUTO DIFF WBC CPT-4: 02373 04/05/2015 LIPID PANEL CPT-4: 68763 04/05/2015 ASSAY OF PSA TOTAL CPT-4: 00280 04/05/2015 ROUTINE VENIPUNCTURE CPT-4: 98587 07/19/2012 COMPREHEN METABOLIC PANEL CPT-4: 89683 07/19/2012 LIPID PANEL CPT-4: 76176 07/19/2012 ELECTROCARDIOGRAM COMPLETE CPT-4: 30931 03/22/2012 Vital Signs Date Vital 09/24/2019 Blood Pressure 1: 125/72 Code: 8480-6 BMI: 19.8 Code: 53986-3 Heart Rate 1: 88 bpm Height: 5'11" [...] 1: 102/60 Code: 8480-6 BMI: 19.1 Code: 55845-5 Heart Rate 1: 82 bpm Height: 5'11" Respiratory Rate: 22 bpm SpO2: 97% Tempera ture: 36.4 (C) / 97.6 (F) Weight: 137 lbs 04/25/2018 Blood Pressure 1: 118/64 Code: 8480-6 BMI: 19.2 Code: 74251-1 Heart Rate 1: 98 bpm Height: 5'11" Respiratory Rate: 20 bpm SpO2: 99% Tempera ture: 36.4 (C) / 97.6 (F) Weight: 138 lbs 11/06/2017 Blood Pressure 1: 108/68 Code: 8480-6 BMI: 18.5 Code: 15664-6 Heart Rate 1: 68 bpm Height: 5'11" Respiratory Rate: 20 bpm SpO2: 96% Tempera ture: 36.8 (C) / 98.2 (F) Weight: 133 lbs 09/03/2017 Blood Pressure 1: 122/64 Code: 8480-6 BMI: 17.6 Code: 22935-0 Heart Rate 1: 90 bpm Height: 5'11" Respiratory Rate: 20 bpm SpO2: 98% Tempera ture: 36.4 (C) / 97.6 (F) Weight: 126 lbs 08/21/2017 Blood Pressure 1: 114/80 Code: 8480-6 BMI: 17.9 Code: 26713-1 Heart Rate 1: 80 bpm Height: 5'11" Respiratory Rate: 20 bpm SpO2: 95% Tempera ture: 36.6 (C) / 97.9 (F) Weight: 128 lbs 02/13/2017 Blood Pressure 1: 122/60 Code: 8480-6 BMI: 18.5 Code: 06452-8 Heart Rate 1: 76 bpm Height: 5'11" Respiratory Rate: 20 bpm SpO2: 96% Tempera ture: 36.9 (C) / 98.4 (F) Weight: 133 lbs 11/23/2016 Blood Pressure 1: 126/70 Code: 8480-6 BMI: 18.5 Code: 53471-3 Heart Rate 1: 100 bpm Height: 5'11" Respiratory Rate: 20 bpm SpO2: 96% Tempera ture: 37.1 (C) / 98.8 (F) Weight: 133 lbs 05/23/2016 Blood Pressure 1: 128/82 Code: 8480-6 BMI: 18.5 Code: 17646-0 Heart Rate 1: 88 bpm Height: 5'11" Respiratory Rate: 20 bpm Temperature: 36 .7 (C) / 98.0 (F) Weight: 133 lbs 05/10/2016 Blood Pressure 1: 146/70 Code: 8480-6 BMI: 18.5 Code: 85537-5 Heart Rate 1: 84 bpm Height: 5'11" Respiratory Rate: 20 bpm Temperature: 36 .7 (C) / 98.1 (F) Weight: 133 lbs 04/01/2015 Blood Pressure 1: 102/60 Code: 8480-6 BMI: 18.5 Code: 89404-5 Heart Rate 1: 64 bpm Height: 5'11" Respiratory Rate: 20 bpm Temperature: 36 .8 (C) / 98.2 (F) Weight: 133 lbs 01/13/2014 Blood Pressure 1: 124/78 Code: 8480-6 BMI: 19.8 Code: 05886-0 Heart Rate 1: 76 bpm Height: 5'11" Respiratory Rate: 20 bpm Temperature: 36 .8 (C) / 98.2 (F) Weight: 142 lbs 04/03/2012 Blood Pressure 1: 106/76 Code: 8480-6 BMI: 20.9 Code: 51651-3 Heart Rate 1: 84 bpm Height: 5'11" Respiratory Rate: 20 bpm Temperature: 36 .7 (C) / 98.0 (F) Weight: 150 lbs 12/20/2011 Blood Pressure 1: 116/60 Code: 8480-6 BMI: 20.1 Code: 33659-8 Heart Rate 1: 80 bpm Height: 5'11" Respiratory Rate: 20 bpm Temperature: 36 .4 (C) / 97.6 (F) Weight: 144 lbs 10/24/2011 Blood Pressure 1: 132/74 Code: 8480-6 BMI: 19.7 Code: 25362-8 Heart Rate 1: 96 bpm Height: 5'11" [...] 01/13/2014 [facility] November 2012 lab draw 07/19/2012 follow up 04/03/2012 S/P stent placement in LAD, changed effient to plavix hip pain 12/20/2011 dyskinesia or tremor 10/24/2011 follow up 03/13/2011 started on effient, zocor, and atenolol follow up 02/20/2011 [facility]/Dr Christian rojas follow up 02/23/2010 [facility], appt with Dr Bajwa 03/22/10 insomnia 01/12/2010 problems falling and staying asleep, takes nortriptyline Encounters Encounter Performer Location Codes Date () NURSE/OUTPATIENT VISIT EST Diagnosis: Essential (primary) hypertension[ICD10: I10] Diagnosis: Mixed hyperlipidemia[ICD10: E78.2] Diagnosis: Encounter for screening for malignant neoplasm of prostate[ICD10: Z12.5] Vonnie MATHEWS [employer] CPT-4: 31975 09/30/2019 ([id number]) OFFICE/OUTPATIENT VISIT EST Diagnosis: Encounter for therapeutic drug level monitoring[ICD10: Z51.81] Diagnosis: Essential tremor[ICD10: G25.0] Verna Ramirez VONNIE MATHEWS [employer] CPT-4: 72529 09/24/2019 ([id number]) OFFICE/OUTPATIENT VISIT EST Diagnosis: Noninfective gastroenteritis and colitis, unspecified[ICD10: K52.9] Diagnosis: Hemorrhage of anus and rectum[ICD10: K62.5] Vonnie MATHEWS [employer] CPT-4: 52202 05/26/2019 ([id number]) OFFICE/OUTPATIENT VISIT EST Diagnosis: Other intervertebral disc degeneration, 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] Diagnosis: Other forms of dyspnea[ICD10: R06.09] Vonnie MATHEWS [facility] [facility] CPT-4: 42346 03/17/2019 OFFICE/OUTPATIENT VISIT EST Diagnosis: Other intervertebral disc degeneration, 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] Diagnosis: Other symptoms and signs involving the musculoskeletal system[ICD10: R29.898] Vonnie MATHEWS DO [facility] CPT-4: 70522 02/18/2019 ([id number]) OFFICE/OUTPATIENT VISIT EST Diagnosis: Other allergic rhinitis[ICD10: J30.89] Akilah MATHEWS [facility] CPT-4: 86608 01/13/2019 ([id number]) NURSE/OUTPATIENT VISIT EST Diagnosis: Mixed hyperlipidemia[ICD10: E78.2] Diagnosis: Essential (primary) hypertension[ICD10: I10] Diagnosis: Encounter for screening for malignant neoplasm of prostate[ICD10: Z12.5] Diagnosis: Encounter for general adult medical examination with abnormal findings[ICD10: Z00.01] Diagnosis: Benign prostatic hyperplasia without lower urinary tract symptoms[ICD10: N40.0] Vonnie MATHEWS [facility] CPT-4: 23117 09/04/2018 ([id number]) OFFICE/OUTPATIENT VISIT EST Diagnosis: Otorrhea, left ear[ICD10: H92.12] Diagnosis: Impacted cerumen, right ear[ICD10: H61.21] Verna MATHEWS [facility] CPT-4: 50311 09/03/2018 ([id number]) OFFICE/OUTPATIENT VISIT EST Diagnosis: Other intervertebral disc degeneration, 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] Diagnosis: Primary insomnia[ICD10: F51.01] Diagnosis: Essential tremor[ICD10: G25.0] Vonnie MATHEWS [facility] CPT-4: 12880 08/26/2018 ([id number]) OFFICE/OUTPATIENT VISIT EST Diagnosis: Pelvic and perineal pain[ICD10: R10.2] Verna MATHEWS [facility] CPT-4: 32440 05/15/2018 ([id number]) OFFICE/OUTPATIENT VISIT EST Diagnosis: Encounter for therapeutic drug level monitoring[ICD10: Z51.81] Diagnosis: Acute sinusitis, unspecified[ICD10: J01.90] Diagnosis: Other intervertebral disc degeneration, 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] Diagnosis: Essential tremor[ICD10: G25.0] Diagnosis: Raynaud's syndrome without gangrene[ICD10: I73.00] Verna MATHEWS [facility] CPT-4: 36468 04/25/2018 ([id number]) OFFICE/OUTPATIENT VISIT EST Diagnosis: Idiopathic urticaria[ICD10: L50.1] Diagnosis: Other urticaria[ICD10: L50.8] Vonniefabricio COLMENARES Denia MATHEWS [facility] CPT-4: 08867 11/16/2017 ([id number]) OFFICE/OUTPATIENT VISIT EST Diagnosis: Idiopathic urticaria[ICD10: L50.1] Diagnosis: Other urticaria[ICD10: L50.8] Diagnosis: Other forms of dyspnea[ICD10: R06.09] Vonnie RODGERS Denia BOWMAN [facility] CPT-4: 80256 11/06/2017 ([id number]) OFFICE/OUTPATIENT VISIT EST Diagnosis: Dyspnea, unspecified[ICD10: R06.00] Diagnosis: Abnormal weight loss[ICD10: R63.4] Vonnie DOUGLASS REA NEAH [employer] [facility] [employer] [facility] CPT-4: 47142 09/03/2017 ([id number]) OFFICE/OUTPATIENT VISIT EST 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] Diagnosis: Mixed hyperlipidemia[ICD10: E78.2] Diagnosis: Essential tremor[ICD10: G25.0] Diagnosis: Essential (primary) hypertension[ICD10: I10] Diagnosis: Abnormal weight loss[ICD10: R63.4] Vonnie LUCIA [employer] [facility] CPT-4: 86855 08/21/2017 ([id number]) OFFICE/OUTPATIENT VISIT EST Diagnosis: Mixed hyperlipidemia[ICD10: E78.2] Diagnosis: Essential (primary) hypertension[ICD10: I10] 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] Diagnosis: Anemia, unspecified[ICD10: D64.9] Vonnie MATHEWS DO [facility] CPT-4: 68161 07/31/2017 ([id number]) OFFICE/OUTPATIENT VISIT EST Diagnosis: FLU VACCINE[ICD10: Z23] Vonnie GERMAN DO [facility] CPT-4: 41744 07/04/2017 ([id number]) OFFICE/OUTPATIENT VISIT EST Diagnosis: Mixed hyperlipidemia[ICD10: E78.2] Diagnosis: Essential tremor[ICD10: G25.0] 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] Diagnosis: Essential (primary) hypertension[ICD10: I10] Diagnosis: Supraventricular tachycardia[ICD10: I47.1] Diagnosis: Other fatigue[ICD10: R53.83] Diagnosis: Encounter for screening for malignant neoplasm of prostate[ICD10: Z12.5] Vonnie MATHEWS DO [facility] CPT-4: 37173 02/26/2017 ([id number]) OFFICE/OUTPATIENT VISIT EST Diagnosis: Essential tremor[ICD10: G25.0] Vonnie MATHEWS DO [facility] CPT-4: 31363 02/13/2017 ([id number]) OFFICE/OUTPATIENT VISIT EST Diagnosis: Essential tremor[ICD10: G25.0] Diagnosis: Other intervertebral disc degeneration, 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] Vonnie MATHEWS DO [facility] CPT-4: 65824 11/23/2016 ([id number]) OFFICE/OUTPATIENT VISIT EST Diagnosis: FLU VACCINE[ICD10: Z23] Vonnie GERMAN DO [facility] CPT-4: 63001 06/28/2016 OFFICE/OUTPATIENT VISIT EST Diagnosis: Open bite of right hand, initial encounter[ICD10: S61.451A] Vonnie MATHEWS DO [facility] CPT-4: 85227 05/23/2016 ([id number]) OFFICE/OUTPATIENT VISIT EST Diagnosis: Encounter for general adult medical examination with abnormal findings[ICD10: Z00.01] Diagnosis: Mixed hyperlipidemia[ICD10: E78.2] Diagnosis: Essential tremor[ICD10: G25.0] 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] Vonnie BOWMAN [employer] [facility] CPT-4: 77227 05/19/2016 ([id number]) OFFICE/OUTPATIENT VISIT EST Diagnosis: HYPERLIPIDEMIA NEC/NOS[ICD9: 272.4] Diagnosis: CAD[ICD9: 414.00] Diagnosis: TACHYCARDIA[ICD9: 785.0] Diagnosis: HYPERTENSION[ICD9: 401.9] Diagnosis: Routine medical exam[ICD9: V70.0] Vonnie BOWMAN [employer] CPT-4: 11231 04/05/2015 ([id number]) OFFICE/OUTPATIENT VISIT EST Diagnosis: HYPERTENSION[ICD9: 401.9] Diagnosis: HYPERLIPIDEMIA NEC/NOS[ICD9: 272.4] Diagnosis: CAD[ICD9: 414.00] Diagnosis: LUMB/LUMBOSAC DISC DEGEN[ICD9: 722.52] Vonnie Romuloalyssaranjan DOLLY GASPAR Denia BOWMAN [employer] CPT-4: 85225 04/01/2015 ([id number]) OFFICE/OUTPATIENT VISIT EST Diagnosis: CHEST PAIN NOS[ICD9: 786.50] Diagnosis: PAIN IN THORACIC SPINE[ICD9: 724.1] Diagnosis: HYPERTENSION[ICD9: 401.9] Diagnosis: GERD[ICD9: 530.81] Vonnie MATHEWS [employer] CPT-4: 35885 01/13/2014 ([id number]) OFFICE/OUTPATIENT VISIT EST Diagnosis: CAD[ICD9: 414.00] Diagnosis: HYPERLIPIDEMIA NEC/NOS[ICD9: 272.4] Vonnie Romulojuan miguel ANNA Denia MATHEWS [employer] CPT-4: 37502 07/19/2012 ([id number]) OFFICE/OUTPATIENT VISIT EST Diagnosis: CAD[ICD9: 414.00] Diagnosis: INSOMNIA NOS[ICD9: 780.52] Vonnie Romulojuan miguel COLMENARES Denia DYEER [employer] CPT-4: 39172 04/03/2012 ([id number]) OFFICE/OUTPATIENT VISIT EST Diagnosis: CHEST PAIN NOS[ICD9: 786.50] Diagnosis: CAD[ICD9: 414.00] Vonnie COLMENARES S. ORENDER DO [facility] CPT-4: 05793 03/22/2012 ([id number]) OFFICE/OUTPATIENT VISIT EST Diagnosis: PROSTATITIS[ICD9: 601.9] Diagnosis: TREMOR NEC[ICD9: 333.1] Vonnie COLMENARES S. OREND ER DO [facility] CPT-4: 72952 12/20/2011 OFFICE/OUTPATIENT VISIT EST Diagnosis: TREMOR NEC[ICD9: 333.1] Diagnosis: TACHYCARDIA[ICD9: 785.0] Diagnosis: HYPERTENSION[ICD9: 401.9] Vonnie COLMENARES S. ORE NDER DO [facility] CPT-4: 82468 10/24/2011 OFFICE/OUTPATIENT VISIT EST Vonnie COLMENARES S. ROMULO NDER DO [facility] CPT- 4: 35897 03/13/2011 ([id number]) OFFICE/OUTPATIENT VISIT EST Vonnie GASPAR SKim ORENDER DO [facility] CPT-4: 35225 02/20/2011 ([id number]) OFFICE/OUTPATIENT VISIT, EST Vonnie NELSON S. ORENDER DO [facility] CPT-4: 52990 02/23/2010 ([id number]) OFFICE/OUTPATIENT VISIT, EST Vonnie NELSON S. ORENDER DO [facility] CPT-4: 19689 01/12/2010 Plan of Care Planned Activity Notes Codes Status Date Appointment: [facility] [facility] 09/25/2019 Visit Diagnosis Plan: Essential tremor Discussion: sta ble on clonazepam. educated patient about purchasing a large, heavy pen that will allow him to improve his writing. instructed him that pens can be purchased on [employer]. ICD-9 : 333.1 ICD-10 : G25.0 09/24/2019 Visit Diagnosis Plan: Encounter for therapeutic drug l evel monitoring Discussion: UDS and contract completed today. ICD-9 : V58.83 ICD-10 : Z51.81 09/24/2019 App[facility]ment: [facility] [facility] MEDICATION REVIEW 09/24/2019 Visit Diagnosis Plan: Noninfective gastroenteritis and colitis, unspecified Discussion: Kathrin duron Update colonoscopy ICD-9 : 558.9 ICD-10 : K52.9 05/26/2019 Visit Diagnosis Plan: Hemorrhage of anus and rectum Di scussion: Update colonoscopy ICD-9 : 569.3 ICD-10 : K62.5 05/26/2019 Appointment: Vonnie Mathewstel: [address] [place], [place] [phone] [place] record request faxed 05/23; LM with medical records 05/26/19 Hospital Follow Up 05/26/2019 Care Plan: Referral Order SNOMED-CT : 30 [id number] Pending 05/26/2019 Visit Diagnosis Plan: Other intervertebral disc degene ration, lumbar region Discussion: Increase lyrica to 150mg po q HS Continue stretches from PT [facility] Fwup after that appointment ICD-9 : 722.52 ICD-10 : M51.36 03/17/2019 Appointment: Vonnie Mathews WPtel: [address] [place], [place] [phone] [place] FOLLOW UP 03/17/2019 Visit Diagnosis Plan: Other intervertebral disc degene ration, lumbar region Discussion: Start PT Referral for epidural Will start lyrica 75mg po q HS once CT scan results obtained [facility] Follow Up: 3 weeks ICD-9 : 722.52 [...] ICD-10 : R29.898 02/18/2019 Appointment: Vonnie Mathewstel: [address] [place], [place] [phone] [place] FOLLOW UP 02/18/2019 Appointment: Vonnie Mathewstel: [address] [place], [place] [phone] [place] CANCELED 02/18/2019 Visit Diagnosis Plan: Other [...] : J30.89 01/13/2019 Appointment: Akilah Lopez [address] [address] [place] Due for annual wellness ACUTE ILLNESS 01/14/20 Appointment: Vonnie Mathews WPtel: [phone] [address] US LAB 09/04/2018 Visit Diagnosis Plan: Impacted [...] : H92.12 09/03/2018 Appointment: Verna Ramirez [address] ACUTE ILLNESS 09/03/2018 Visit Diagnosis Plan: [...] : M51.36 08/26/2018 Appointment: Vonnie Mathews WPtel: [facility] [address] US FOLLOW UP 08/26/2018 Visit Diagnosis Plan: [...] : R10.2 05/15/2018 Appointment: Verna Ramirez [address] [place], [place] [address] ACUTE ILLNESS 05/15/2018 Patient Education: Patient Medication Summary Completed 05/15/2018 Care Plan: US EXAM PELVIC COMPLETE scrotal LOINC : 00825-4 Pending 05/15/2018 Visit Diagnosis Plan: Other intervertebral [...] : I73.00 04/25/2018 Appointment: Verna Ramirez 504 [facility] MEDICATION REVIEW 04/25/2018 Patient Education: Patient Medication Summary Completed 04/25/2018 Appointment: Vonnie Mathews WPtel: [address] [place], [place] [phone] 11/16/2017 Patient Education: Patient Medication Summary Completed [...] : L50.1 11/06/2017 Appointment: Vonnie Mathews WPtel: [address] [place], [place] [phone] FOLLOW UP 11/06/2017 Patient Education: Patient Medication [...] : R63.4 09/03/2017 Appointment: Vonnie Mathews WPtel: [address] [place], [place] [phone] FOLLOW UP 09/03/2017 Patient Education: Patient Medication [...] Diagnosis Plan: Atherosclerotic he art disease of [place] coronary artery without angina pectoris Discussion: Sees Cardiology in 2 days To ER if CP returns before ICD-9 : 414.00 ICD-10 : I25.10 08/21/2017 Appointment: Vonnie Mathews WPtel: [address] [place], [place] [phone] [place] FOLLOW UP 08/21/2017 Patient Education: Patient Medication Summary Completed 08/21/2017 Appointment: Vonnie Mathews WPtel: [address] [place], [place] [phone] US LAB 07/31/2017 Patient Education: Patient Medication Summary Completed 07/31/2017 Appointment: Vonnie Mathews WPtel: [address] [place], [place] [phone] US INJECTION 07/04/2017 Patient Education: Patient Medication Summary Completed 07/04/2017 Appointment: Vonnie Mathews WPtel: [address] [place], [place] [phone] [place] LAB 02/26/2017 Patient Education: Patient Medication Summary Completed 02/26/2017 Visit Diagnosis Plan: Essential tremor Discussion: Con tinue clonazepam at 1mg q AM and primidone 50mg q HS Follow Up: 3 months ICD-9 : 333.1 ICD-10 : G25.0 02/13/2017 Appointment: Vonnie Mathews WPtel: [address] [place], [place] [phone] [place] 02/08 confirmed~sl FOLLOW UP 02/13/2017 Patient Education: Patient Medication Summary Completed 02/13/2017 Appointment: Vonnie Mathews WPtel: [address] [place], [place] [id number] [place] RESCHEDULED 01/23/2017 Visit Diagnosis Plan: Other intervertebral disc degene ration, lumbar region Discussion: DC oxycodone Tramadol 50mg 1-2 po TID prn pain Follow Up: 2 months ICD-9 : 722.52 ICD-10 : M51.36 11/23/2016 Visit Diagnosis Plan: Essential tremor Discussion: Inc rease clonazepam to 1mg po BID Discussed sinemet ICD-9 : 333.1 ICD-10 : G25.0 11/23/2016 Appointment: Vonnie Mathews WPtel: [address] [place], [place] [phone] 11/22 confirmed~ MEDICATION REVIEW 11/23/2016 Patient Education: Patient Medication Summary Completed 11/23/2016 Patient Education: [facility] [employer] - Clonazepam - 18-64 - Dynamic Portal ID Completed 11/23/2016 Appointment: Vonnie Mathews WPtel: [address] [place], [place] [phone] INJECTION 06/28/2016 Patient Education: Patient Medication Summary Completed 06/28/2016 Referral: Fernando Day WPtel: #[address] [facility] [id number] per Maribeth, the patient is sched uled [...] worsening 05/23/2016 Appointment: Vonnie Mathews WPtel: [phone] [facility] ER Follow UP 05/23/2016 Patient Education: Patient Medication Summary Completed 05/23/2016 Appointment: Vonnie Mathews WPtel: [facility] LAB 05/19/2016 Patient Education: Patient Medication Summary Completed 05/19/2016 Visit Plan: Change coreg to 3.125mg BID Trial of low dose clonazepam 0.5mg BID for tremors Fwup with Dr. Ramsey as scheduled Return for fasting lab--CBC, CMP, TSH, free T4, Lipids, PSA, B12 Proceed with Colonoscopy 05/10/2016 Appointment: Vonnie Mathews WPtel: [address] [facility] 05/09 confirmed~sl Annual Well Visit 05/10/2016 Patient Education: Patient Medication Summary Completed 05/10/2016 Care Plan: Referral Order SNOMED-CT : 30 [id number] Pending 05/10/2016 Appointment: Vonnie Mathews WPtel: [address] [place], [place] [phone] [place] Rescheduled for 05/10/16 at 2PM~lb RESCHEDULED 04/26/2016 Ref[facility]: [facility] Referral Initiated 04/29/2015 Appointment: Vonnie Mathews WPtel: [address] [place], [place] [phone] LAB 04/05/2015 Patient Education: Patient Medication Summary Completed 04/05/2015 Visit Plan: Return in AM for fasting lab --CMP, lipids, CBC, TSH, PSA Change hydrocodone to oxycodone 7.5/325mg 1-2 po TID Schedule with cardiology Needs colonoscopy once cardiology evaluation complete Will need to restart chol meds after lab Recheck 1mo on pain meds 04/01/2015 Appointment: Vonnie Mathews WPtel: [address] [place], [place] [phone] 03/31 confirmed -mf PHYSICAL 04/01/2015 Patient Education: Patient Medication Summary Completed 04/01/2015 Appointment: Vonnie Mathewstel: [address] [facility] Annual Well Visit 09/23/2014 Visit Plan: Continue protonix Pt has fwu p with Card next month Rec chiropracter or PT for ribs/thoracics being out and could be contributing to chest pain 01/13/2014 Appointment: Vonnie Mathews WPtel: [address] [place] [address] US FOLLOW UP 01/13/2014 Patient Education: Patient Medication Summary Completed 01/13/2014 Appointment: Ariella Mcnally WPtel: [address] [place] [address] US FOLLOW UP 12/12/2013 Appointment: Malika Cárdenas WPtel: [address] [place] [address] US PHYSICAL 12/12/2013 Appointment: Vonnie Mathews WPtel: [address] [place] [address] ACUTE ILLNESS 02/20/2013 Appointment: Vonnie Mathews WPtel: [address] [place] [address] LAB 07/19/2012 Patient Education: Patient Medication Summary Completed 07/19/2012 Appointment: Vonnie Mathews WPtel: [address] [place] [address] FOLLOW UP 04/03/2012 Patient Education: Patient Medication Summary Completed 04/03/2012 Appointment: Vonnie Mathews WPtel: [address] [place] [address] ACUTE ILLNESS 03/22/2012 Patient Education: Patient Medication Summary Completed 03/22/2012 Appointment: Vonnie Mathews WPtel: [address] [place] [address] US FOLLOW UP 12/26/2011 Visit Plan: Magy hayes eds 12/20/2011 Appointment: Vonnie Mathews WPtel: [address] [place] [address] ACUTE ILLNESS 12/20/2011 Patient Education: Patient Medication Summary Completed 12/20/2011 Visit Plan: Change neurontin to Cymbalta 30mg for 1wk then 60mg QD Add Propranolol for tremor 10/24/2011 Appointment: Vonnie Mathewstel: [address] [place] [address] ACUTE ILLNESS 10/24/2011 Appointment: Vonnie Mathews WPtel: [address] [place] [address] ACUTE ILLNESS 10/24/2011 Patient Education: Patient Medication Summary Completed 10/24/2011 Visit Plan: Continue current meds and fw up with Card as scheduled 03/13/2011 Appointment: Vonnie Mathews WPtel: [address] [place] [address] FOLLOW UP 03/13/2011 Patient Education: Patient Medication Summary Completed 03/13/2011 Visit Plan: Will obtain all records and lab from [place] Discussed will likely need heart cath which pt states that Card did talk to him about in the hospital 02/20/2011 Appointment: Vonnie Mathews WPtel: [address] [place] [address] ACUTE ILLNESS 02/20/2011 Patient Education: Patient Medication Summary Completed 02/20/2011 Visit Plan: Cont Pepcid and Prilosec See Card for cardiac cath. 02/23/2010 Appointment: Vonnie Mathews WPtel: [address] [place], [place] [phone] FOLLOW UP 02/23/2010 Patient Education: Patient Medication Summary Completed 02/23/2010 Visit Plan: Increase Pamelor to 75mg qhs Increase Hydrocodone to 10/325mg 1-2 po q6 prn 01/12/2010 Appointment: Vonnie Mathews WPtel: [address] [place] [address] ACUTE ILLNESS 01/12/2010 Patient Education: Patient Medication Summary Completed 01/12/2010 Referral: Iván Pardo WPtel: [facility] [address] [facility] 1 [id number] [place] Referral Initiated Referral: Fernando Day WPtel: #1 [facility] [place] [id number] US Referral Completed Referral: Fernando DayKim WPtel: #1 [facility] [place] [id number] [place] Referral Appointment Requested Instructions Comment . [...]
--- OUTSIDE RECORDS SUMMARY | 2020-02-10 08:24 | XMS REPORT | CCD ---
Author Author Nash Mathews D.O. Organization [facility] Address [address] [place] [address] Phone Care Team Providers Care Appliance Counselor Name Role Phone Vonnie Mathews D.O., PP Unavailable CCM Unavailable Summary Purpose Interface Exchange Insurance Providers Payer name Policy type / Coverage type Covered republican ID Effective Begin Date Effective End Date WPS MEDICARE PART B [place] Part B [id number] 2018 Unknown Family History Family History data not found Social History Social History Element Codes Description Effective Dates Marital status Unknown 10/24/[address]: 990689505 Nonsmoker 03/29/2011 Allergies, Adverse Reactions, Alerts Substance [...] R63.4 08/21/2017 Active 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: [...] Fill Instructions clonazepam 1 mg tablet RxNorm: 651024 TAKE 1 TABLET BY MOUTH EV SUSAN AM 09/23/2019 10/22/2019 Active clonazepam 1 mg tablet RxNorm: 348369 TAKE 1 TABLET BY MOUTH EV SUSAN AM 08/21/2019 09/22/2019 Inactive Singulair 10 mg tablet RxNorm: 791402 TABLET(S) 1 TABLET(S) PO QD 1 10/11/2019 Active Flagyl 500 mg tablet RxNorm: 135313 1 Tablet(s) PO TID 05/26/2019 Inactive clonazepam 1 mg tablet RxNorm: 897737 TAKE 1 TABLET BY MOUTH EV SUSAN MORNING 05/23/2019 06/21/2019 Inactive pravastatin 20 mg tablet RxNorm: 362319 1 Tablet(s) PO QD 04/14/2019 10/10/2019 Active Needs updated fasting labs Singulair 10 mg tablet RxNorm: 325477 Tablet(s) 1 TABLET(S) PO QD 0 04/14/2019 07/12/2019 Inactive clonazepam 1 mg tablet RxNorm: 780575 1 Tablet(s) PO QAM 02/21/2019 0 05/23/2019 Inactive Bevespi Aerosphere 9 mcg-4.8 mcg HFA aerosol inhaler RxNorm: 3947273 2 Puff(s) INH BID 02/19/2019 No Stop Date Active ProAir HFA 90 mcg/actuation aerosol inhaler RxNorm: 924047 2 Puff(s) INH Q4H as needed 02/19/2019 09/24/2019 Inactive metoprolol tartrate 25 mg tablet RxNorm: 058872 1/2 Tablet(s) PO BI D 02/18/2019 05/18/2019 Inactive pravastatin 20 mg tablet RxNorm: 091794 1 Tablet(s) PO QD Needs updated fasting labs 01/13/2019 04/14/2019 Inactive Needs updated fa sting labs Singulair 10 mg tablet RxNorm: 103753 Tablet(s) 1 TABLET(S) PO QD 0 01/13/2019 04/12/2019 Inactive Plavix 75 mg tablet RxNorm: 564037 Tablet(s) 1 TABLET(S) PO QD 04/201906/20/2019 Inactive [SAVINGS FOR NON-COVERED SHANDA -- BIN:322554, PCN: ASPROD1, Group: XXXXX, ID# [id number], Questions: . THIS IS NOT INSURANCE.] Singulair 10 mg tablet RxNorm: 240637 1 TABLET(S) PO QD 10/29/2018 Inactive primidone 50 mg tablet RxNorm: 794686 2 TABLET(S) PO BI D TAKE 2 TABLETS BY MOUTH EVERY NIGHT AT BEDTIME 10/07/2018 01/12/2019 Inactive Patient requests 90 days supply pravastatin 20 mg tablet RxNorm: 332398 1 TABLET(S) PO QD 09/23/2018 01/12/2019 Inactive clonazepam 1 mg tablet RxNorm: 530316 1 Tablet(s) PO QAM 09/19/2018 0 12/17/2018 Inactive primidone 50 mg tablet RxNorm: 807223 TABLET(S) TAKE 2 TABLETS BY MOUTH EVERY NIGHT AT BEDTIME 09/18/2018 01/12/2019 Inactive ciprofloxacin 0.2 % ear drops in a dropperette RxNorm: 40985 6 2 Drop(s) left otic (ear) BID 09/03/2018 09/09/2018 Inactive primidone 50 mg tablet RxNorm: 049843 2 Tablet(s) PO BI D TAKE 2 TABLETS BY MOUTH EVERY NIGHT AT BEDTIME 08/26/2018 10/06/2018 Inactive Ambien 5 mg tablet RxNorm: 594565 TAKE 1 TABLET BY MOUTH EVERY NIGHT AT BEDTIME 08/05/2018 09/03/2018 Inactive Singulair 10 mg tablet RxNorm: 727485 1 TABLET(S) PO QD 07/23/2018 Inactive clonazepam 1 mg tablet RxNorm: 676718 TAKE 1 TABLET BY MOUTH EV SUSAN MORNING 07/23/2018 08/21/2018 Inactive Plavix 75 mg tablet RxNorm: 449581 1 TABLET(S) PO QD 07/04/201812/22 Inactive [SAVINGS FOR NON-COVERED DRUGS -- BIN:00 3585, PCN: ASPROD1, Group: XXXXX, ID# [id number], Questions: . THIS IS NOT INSURANCE.] clonazepam 1 mg tablet RxNorm: 460864 TAKE 1 TABLET BY MOUTH EV SUASN MORNING 06/25/2018 07/23/2018 Inactive clonazepam 1 mg tablet RxNorm: 637710 TAKE 1 TABLET BY MOUTH EV SUSAN MORNING 05/23/2018 06/21/2018 Inactive primidone 50 mg tablet RxNorm: 922021 Tablet(s) TAKE 2 TABLETS BY MOUTH EVERY NIGHT AT BEDTIME 05/16/2018 08/25/2018 Inactive oxycodone-acetaminophen 7.5 mg-325 mg tablet RxNorm: 8032614 1-2 Tablet(s) PO TID as needed 04/25/2018 05/24/2018 Inactive Singulair 10 mg tablet RxNorm: 152313 1 Tablet(s) PO QD 04/25/2018 Inactive Medrol (Jose) 4 mg tablets in a dose pack RxNorm: 662656 Tablet(s) PO take as directed 04/25/2018 09/02/2018 Inactive clonazepam 1 mg tablet RxNorm: 763285 TAKE 1 TABLET BY MOUTH EV SUSAN MORNING 04/24/2018 05/22/2018 Inactive Plavix 75 mg tablet RxNorm: 045011 1 TABLET(S) PO QD 04/04/201807/02 Inactive [SAVINGS FOR NON-COVERED DRUGS -- BIN:00 3581, PCN: ASPROD1, Group: XXXXX, ID# [id number], Questions: . THIS IS NOT INSURANCE.] pravastatin 20 mg tablet RxNorm: 009282 1 Tablet(s) PO QD 03/21/2018 09/16/2018 Inactive ProAir HFA 90 mcg/actuation aerosol inhaler RxNorm: 054785 2 Puff(s) INH Q4H as needed 03/18/2018 03/17/2018 Inactive tamsulosin 0.4 mg capsule RxNorm: 371903 1 CAPSULE(S) PO QD 018 01/12/2019 Inactive clonazepam 1 mg tablet RxNorm: 186050 1 Tablet(s) PO QAM 02/25/2018 0 04/25/2018 Inactive tamsulosin 0.4 mg capsule RxNorm: 407871 1 Capsule(s) PO QD 018 03/13/2018 Inactive tamsulosin 0.4 mg capsule RxNorm: 921275 1 Capsule(s) PO QD 018 02/03/2018 Inactive tamsulosin 0.4 mg capsule RxNorm: 811838 1 Capsule(s) PO QD 018 02/12/2018 Inactive Ambien 5 mg tablet RxNorm: 463646 Tablet(s) TAKE 1 TAB LET BY MOUTH EVERY NIGHT AT BEDTIME 01/24/2018 08/05/2018 Inactive primidone 50 mg tablet RxNorm: 222821 Tablet(s) TAKE 2 TABLETS BY MOUTH EVERY NIGHT AT BEDTIME 01/18/2018 05/16/2018 Inactive cyclobenzaprine 10 mg tablet RxNorm: 127135 1 Tablet(s) PO TID as needed for muscle spasm 01/11/2018 02/09/2018 Inactive [SAVINGS FOR NON -COVERED DRUGS -- BIN:065422, PCN: ASPROD1, Group: XXXXX, ID# [id number], Questions: . THIS IS NOT INSURANCE.] clonazepam 1 mg tablet RxNorm: 714436 1 Tablet(s) PO QAM 12/24/2017 0 02/21/2018 Inactive prednisone 20 mg tablet RxNorm: 383007 1 Tablet(s) PO QD 11/06/2017 0 11/10/2017 Inactive EpiPen 2-Jose 0.3 mg/0.3 mL injection, auto-injector RxNorm: 841392 1 Unit Dose IM as needed 11/06/2017 09/24/2019 Inactive ProAir HFA 90 mcg/actuation aerosol inhaler RxNorm: 718969 2 Puff(s) INH Q4H as needed 10/30/2017 03/17/2018 Inactive primidone 50 mg tablet RxNorm: 521009 TAKE 2 TABLETS BY MOUTH EVERY NIGHT AT BEDTIME 10/15/2017 01/17/2018 Inactive Plavix 75 mg tablet RxNorm: 687451 1 Tablet(s) PO QD 10/01/201703/29 Inactive [SAVINGS FOR NON-COVERED DRUGS -- BIN:00 3585, PCN: ASPROD1, Group: XXXXX, ID# [id number], Questions: . THIS IS NOT INSURANCE.] clonazepam 1 mg tablet RxNorm: 454163 1 Tablet(s) PO QAM 09/19/2017 0 12/16/2017 Inactive primidone 50 mg tablet RxNorm: 358427 2 Tablet(s) PO QHS 08/29/2017 0 01/18/2018 Inactive oxycodone-acetaminophen 7.5 mg-325 mg tablet RxNorm: 7977423 1-2 Tablet(s) PO TID as needed 08/22/2017 09/19/2017 Inactive pravastatin 20 mg tablet RxNorm: 083884 1 Tablet(s) PO QD 08/21/2017 03/21/2018 Inactive carvedilol 3.125 mg tablet RxNorm: 434840 1 Tablet(s) P O BID to replace 6.25mg dose 08/21/2017 09/02/2017 Inactive primidone 50 mg tablet RxNorm: 618009 TAKE 2 TABLETS BY MOUTH EVERY NIGHT AT BEDTIME 06/18/2017 08/28/2017 Inactive clonazepam 1 mg tablet RxNorm: 218267 1 Tablet(s) PO QAM 06/04/2017 1 11/02/2016 Inactive Plavix 75 mg tablet RxNorm: 003141 1 Tablet(s) PO QD 04/10/201710/01 Inactive [SAVINGS FOR NON-COVERED DRUGS -- BIN:00 3585, PCN: ASPROD1, Group: XXXXX, ID# [id number], Questions: . THIS IS NOT INSURANCE.] pravastatin 20 mg tablet RxNorm: 098402 1 Tablet(s) PO QD 02/26/2017 08/24/2017 Inactive carvedilol 3.125 mg tablet RxNorm: 328611 1 Tablet(s) P O BID to replace 6.25mg dose 02/26/2017 08/21/2017 Inactive Ultram 50 mg tablet RxNorm: 406211 TAKE 1 TO 2 TABLETS BY MOUTH THREE TIMES DAILY NEEDED FOR PAIN 02/26/2017 03/07/2017 Inactive pravastatin 20 mg tablet RxNorm: 322873 1 Tablet(s) PO QD 02/26/2017 08/21/2017 Inactive carvedilol 3.125 mg tablet RxNorm: 088595 1 Tablet(s) P O BID to replace 6.25mg dose 02/26/2017 08/20/2017 Inactive clonazepam 0.5 mg tablet RxNorm: 607885 1 Tablet(s) PO QAM 02/14/20 17 02/13/2017 Inactive primidone 50 mg tablet RxNorm: 441114 1 Tablet(s) PO QHS 02/13/2017 0 05/01/2017 Inactive clonazepam 1 mg tablet RxNorm: 365582 1 Tablet(s) PO QAM 02/13/2017 0 05/13/2017 Inactive primidone 50 mg tablet RxNorm: 066017 1/2 Tablet(s) PO QD for 7 days then increase to 1 tablet at bedtime 01/09/2017 02/12/2017 Inactive pravastatin 20 mg tablet RxNorm: 717158 Tablet(s) 1 TABLET(S) PO QD 11/29/2016 02/25/2017 Inactive clonazepam 1 mg tablet RxNorm: 579702 1 Tablet(s) PO BID replac es 0.5mg dose 11/23/2016 01/08/2017 Inactive pravastatin 20 mg tablet RxNorm: 460717 1 TABLET(S) PO QD 11/17/2016 11/28/2016 Inactive Ambien 5 mg tablet RxNorm: 463834 TAKE 1 TABLET BY MOUTH EVERY NIGHT AT BEDTIME 11/17/2016 12/14/2016 Inactive clonazepam 0.5 mg tablet RxNorm: 084117 TAKE 1 TABLET BY MOUTH TWICE DAILY 11/17/2016 11/22/2016 Inactive Plavix 75 mg tablet RxNorm: 570292 1 Tablet(s) PO QD 11/06/201604/09 Inactive [SAVINGS FOR NON-COVERED DRUGS -- BIN:00 3585, PCN: ASPROD1, Group: XXXXX, ID# [id number], Questions: . THIS IS NOT INSURANCE.] Plavix 75 mg tablet RxNorm: 905401 1 Tablet(s) PO QD 08/28/201611/05 Inactive [SAVINGS FOR NON-COVERED DRUGS -- BIN: 3585, PCN: ASPROD1, Group: XXXXX, ID# [id number], Questions: . THIS IS NOT INSURANCE.] Lidoderm 5 % topical patch RxNorm: 5278152 Application T OP 2 patches for 12hrs then off for 12hrs 08/28/2016 08/27/2016 Inactive clonazepam 0.5 mg tablet RxNorm: 871845 1 Tablet(s) PO BID 08/07/20 16 11/22/2016 Inactive pravastatin 20 mg tablet RxNorm: 567031 1 Tablet(s) PO QD 08/07/2016 11/04/2016 Inactive cyclobenzaprine 10 mg tablet RxNorm: 740004 1 Tablet(s) PO TID as needed for muscle spasm 08/07/2016 09/05/2016 Inactive [SAVINGS FOR NON -COVERED DRUGS -- BIN:560130, PCN: ASPROD1, Group: XXXXX, ID# [id number], Questions: . THIS IS NOT INSURANCE.] Plavix 75 mg tablet RxNorm: 855675 1 Tablet(s) PO QD 08/07/201608/27 Inactive [SAVINGS FOR NON-COVERED DRUGS -- BIN:00 3585, PCN: ASPROD1, Group: XXXXX, ID# [id number], Questions: . THIS IS NOT INSURANCE.] carvedilol 3.125 mg tablet RxNorm: 102723 1 Tablet(s) P O BID to replace 6.25mg dose 08/07/2016 02/02/2017 Inactive clonazepam 0.5 mg tablet RxNorm: 684445 1 Tablet(s) PO BID 07/04/2008/07/2016 Inactive Plavix 75 mg tablet RxNorm: 712366 1 TABLET(S) PO QD 06/20/201608/06 Inactive [SAVINGS FOR NON-COVERED DRUGS -- BIN:00 3585, PCN: ASPROD1, Group: XXXXX, ID# [id number], Questions: . THIS IS NOT INSURANCE.] clonazepam 0.5 mg tablet RxNorm: 348292 1 Tablet(s) PO BID 06/09/20 16 07/03/2016 Inactive pravastatin 20 mg tablet RxNorm: 874290 1 Tablet(s) PO QD 05/23/2016 08/06/2016 Inactive pravastatin 20 mg tablet RxNorm: 463944 1 Tablet(s) PO QD 05/23/2016 05/22/2016 Inactive carvedilol 3.125 mg tablet RxNorm: 160327 1 Tablet(s) P O BID to replace 6.25mg dose 05/10/2016 08/06/2016 Inactive carvedilol 3.125 mg tablet RxNorm: 688444 1 Tablet(s) P O BID to replace 6.25mg dose 05/10/2016 05/09/2016 Inactive clonazepam 0.5 mg tablet RxNorm: 077527 1 Tablet(s) PO BID 05/10/20 16 06/08/2016 Inactive carvedilol 6.25 mg tablet RxNorm: 739980 1 Tablet(s) PO QD 05/10/20 16 05/10/2016 Inactive simvastatin 40 mg tablet RxNorm: 825675 1 TABLET(S) PO QD 04/10/2016 05/09/2016 Inactive Medrol (Jose) 4 mg tablets in a dose pack RxNorm: 913102 Tablet(s) PO As Directed 01/13/2016 05/09/2016 Inactive cyclobenzaprine 10 mg tablet RxNorm: 507117 1 TABLET(S) PO TID NEEDED FOR SPASM 01/11/2016 03/10/2016 Inactive [SAVINGS FOR NON -COVERED DRUGS -- BIN:619528, PCN: ASPROD1, Group: XXXXX, ID# [id number], Questions: . THIS IS NOT INSURANCE.] Plavix 75 mg tablet RxNorm: 262936 1 Tablet(s) PO QD 12/30/201506/19 Inactive [SAVINGS FOR NON-COVERED DRUGS -- BIN: 3585, PCN: ASPROD1, Group: XXXXX, ID# [id number], Questions: . THIS IS NOT INSURANCE.] Ambien 5 mg tablet RxNorm: 407811 TAKE 1 TABLET BY MOUTH EVERY DAY AT BEDTIME 11/15/2015 11/17/2016 Inactive simvastatin 40 mg tablet RxNorm: 231187 1 Tablet(s) PO QD 10/11/2015 01/12/2019 Inactive simvastatin 40 mg tablet RxNorm: 486235 1 Tablet(s) PO QD 10/08/2015 10/10/2015 Inactive Ambien 5 mg tablet RxNorm: 089710 TAKE 1 TABLET BY MOUTH EVERY NIGHT AT BEDTIME 07/27/2015 11/15/2015 Inactive Plavix 75 mg tablet RxNorm: 923122 1 Tablet(s) PO QD 06/28/201512/29 Inactive [SAVINGS FOR NON-COVERED DRUGS -- BIN: 3585, PCN: ASPROD1, Group: XXXXX, ID# [id number], Questions: . THIS IS NOT INSURANCE.] Coreg 6.25 mg tablet RxNorm: 665159 1 TABLET(S) PO BID 04/19/2015 Inactive [SAVINGS FOR NON-COVERED DRUGS -- BIN:00 3585, PCN: ASPROD1, Group: XXXXX, ID# [id number], Questions: . THIS IS NOT INSURANCE.] simvastatin 40 mg tablet RxNorm: 073429 1 Tablet(s) PO QD 04/05/2015 04/04/2015 Inactive simvastatin 40 mg tablet RxNorm: 615296 1 Tablet(s) PO QD 04/05/2015 10/11/2015 Inactive Plavix 75 mg tablet RxNorm: 106513 1 TABLET(S) PO QD 03/22/201504/20 Inactive [SAVINGS FOR NON-COVERED DRUGS -- BIN:00 3585, PCN: ASPROD1, Group: XXXXX, ID# [id number], Questions: . THIS IS NOT INSURANCE.] Plavix 75 mg tablet RxNorm: 176958 1 Tablet(s) PO QD 03/22/201506/28 Inactive [SAVINGS FOR NON-COVERED DRUGS -- BIN:00 3585, PCN: ASPROD1, Group: XXXXX, ID# [id number], Questions: . THIS IS NOT INSURANCE.] Ambien 5 mg tablet RxNorm: 701446 1 Tablet(s) PO QHS 12/17/201407/28 Inactive [SAVINGS FOR NON-COVERED DRUGS -- BIN:00 3585, PCN: ASPROD1, Group: XXXXX, ID# [id number], Questions: . THIS IS NOT INSURANCE.] Coreg 6.25 mg tablet RxNorm: 527940 1 Tablet(s) PO BID 12/17/2014 Inactive [SAVINGS FOR NON-COVERED DRUGS -- BIN:00 3585, PCN: ASPROD1, Group: XXXXX, ID# [id number], Questions: . THIS IS NOT INSURANCE.] Plavix 75 mg tablet RxNorm: 385947 1 Tablet(s) PO QD 12/17/201403/16 Inactive [SAVINGS FOR NON-COVERED DRUGS -- BIN:00 3585, PCN: ASPROD1, Group: XXXXX, ID# [id number], Questions: . THIS IS NOT INSURANCE.] cyclobenzaprine 10 mg tablet RxNorm: 153383 1 Tablet(s) PO TID as needed for spasm 12/17/2014 03/16/2015 Inactive [SAVINGS FOR NON -COVERED DRUGS -- BIN:709305, PCN: ASPROD1, Group: XXXXX, ID# [id number], Questions: . THIS IS NOT INSURANCE.] Coreg 6.25 mg tablet RxNorm: 912766 1 Tablet(s) PO BID 10/21/201409/2014 Inactive [SAVINGS FOR NON-COVERED DRUGS -- BIN:00 3585, PCN: ASPROD1, Group: XXXXX, ID# [id number], Questions: . THIS IS NOT INSURANCE.] Plavix 75 mg tablet RxNorm: 880052 1 Tablet(s) PO QD 10/21/201412/16 Inactive [SAVINGS FOR NON-COVERED DRUGS -- BIN:00 3585, PCN: ASPROD1, Group: XXXXX, ID# [id number], Questions: . THIS IS NOT INSURANCE.] Plavix 75 mg tablet RxNorm: 587323 1 Tablet(s) PO QD Ne eds routine check up--last seen March 2012 09/21/2014 10/20/2014 Inactive [SAVINGS FOR UNINSURED PATIENTS -- BIN:805097, PCN: ASPROD1, Group: AME08, ID# [id number], Process claim through [employer], for questions: . THIS IS NOT INSURANCE.] Ambien 5 mg tablet RxNorm: 708782 1 Tablet(s) PO [facility] 09/21/201412/16 Inactive [SAVINGS FOR UNINSURED PATIENTS -- BIN:0 30250, PCN: ASPROD1, Group: AME08, ID# [id number], Process claim through [employer], for questions: . THIS IS NOT INSURANCE.] Coreg 6.25 mg tablet RxNorm: 478010 1 Tablet(s) PO BID 09/21/201411/2014 Inactive [SAVINGS FOR UNINSURED PATIENTS -- BIN:0 96733, PCN: ASPROD1, Group: AME08, ID# [id number], Process claim through [employer], for questions: . THIS IS NOT INSURANCE.] Plavix 75 mg tablet RxNorm: 170647 1 Tablet(s) PO QD Ne eds routine check up--last seen March 2012 08/04/2014 09/02/2014 Inactive [SAVINGS FOR UNINSURED PATIENTS -- BIN:965848, PCN: ASPROD1, Group: AME08, ID# [id number], Process claim through [employer], for questions: . THIS IS NOT INSURANCE.] Plavix 75 mg tablet RxNorm: 877500 1 Tablet(s) PO QD Ne eds routine check up--last seen March 2012 08/03/2014 08/03/2014 Inactive Protonix 40 mg tablet,delayed release RxNorm: 493906 1 Tablet(s ) PO QD 06/08/2014 02/17/2019 Inactive [SAVINGS FOR UNINSUR ED PATIENTS -- BIN:459027, PCN: ASPROD1, Group: AME08, ID# [id number], Process claim through [employer], for questions: . THIS IS NOT INSURANCE.] hydrocodone 10 mg-acetaminophen 325 mg tablet RxNorm: 663294 1 Tablet(s) PO BID as needed for pain 02/18/2014 03/31/2015 Inactive Coreg 6.25 mg tablet RxNorm: 661228 1 Tablet(s) PO BID 02/02/2014 Inactive Protonix 40 mg granules delayed-release packet RxNorm: 868662 1 Tablet(s) PO QD 01/13/2014 06/08/2014 Inactive Plavix 75 mg tablet RxNorm: 419292 1 Tablet(s) PO QD Ne eds routine check up--last seen March 2012 01/13/2014 08/02/2014 Inactive Plavix 75 mg tablet RxNorm: 683593 1 Tablet(s) PO QD Ne eds routine check up--last seen March 2012 12/09/2013 01/07/2014 Inactive Coreg 6.25 mg tablet RxNorm: 839439 1 Tablet(s) PO BID 12/09/2013 Inactive Cymbalta 60 mg capsule,delayed release RxNorm: 667329 1 Capsule (s) PO QD 10/31/2013 01/12/2014 Inactive Coreg 6.25 mg tablet RxNorm: 758381 1 Tablet(s) PO BID 10/31/2013 Inactive Plavix 75 mg tablet RxNorm: 744366 1 Tablet(s) PO QD Ne eds routine check up--last seen March 2012 10/31/2013 11/29/2013 Inactive Coreg 6.25 mg tablet RxNorm: 082628 1 Tablet(s) PO BID 10/31/2013 Inactive atorvastatin 40 mg tablet RxNorm: 563613 1 Tablet(s) PO QD 10/31/19 14 03/31/2015 Inactive Plavix 75 mg tablet RxNorm: 970335 1 Tablet(s) PO QD Ne eds routine check up--last seen March 2012 09/23/2013 10/30/2013 Inactive cyclobenzaprine 10 mg tablet RxNorm: 094845 1 Tablet(s) PO TID as needed for spasm 09/23/2013 No Stop Date Active cyclobenzaprine 10 mg tablet RxNorm: 578504 1 Tablet(s) PO TID as needed for spasm 07/04/2013 09/22/2013 Inactive atorvastatin 40 mg tablet RxNorm: 147272 1 Tablet(s) PO QD 06/23/20 13 10/30/2013 Inactive atorvastatin 40 mg tablet RxNorm: 393337 1 Tablet(s) PO QD 04/22/20 13 06/22/2013 Inactive Nucynta 50 mg tablet RxNorm: 564785 1-2 Tablet(s) PO Q6H as nee ded for pain 01/01/2013 01/12/2014 Inactive Ambien 5 mg tablet RxNorm: 675690 1 Tablet(s) PO QHS 10/16/201201/13 Inactive Plavix 75 mg tablet RxNorm: 920532 1 Tablet(s) PO QD 09/19/201209/13 Inactive Protonix 40 mg tablet,delayed release RxNorm: 831729 1 Tablet(s ) PO QD 09/19/2012 09/18/2012 Inactive simvastatin 40 mg tablet RxNorm: 366438 1 Tablet(s) PO QD 09/19/2012 02/23/2013 Inactive Protonix 40 mg tablet,delayed release RxNorm: 018896 1 Tablet(s ) PO QD 09/19/2012 09/13/2013 Inactive Ultram 50 mg tablet RxNorm: 948616 1-2 Tablet(s) PO QID as need ed for pain 09/19/2012 02/26/2017 Inactive propranolol 80 mg tablet RxNorm: 248917 1 Tablet(s) PO QHS 09/19/19 13 09/18/2012 Inactive Cymbalta 60 mg capsule,delayed release RxNorm: 056697 1 Capsule (s) PO QD 09/19/2012 09/18/2012 Inactive Cymbalta 60 mg capsule,delayed release RxNorm: 596439 1 Capsule (s) PO QD 09/19/2012 03/17/2013 Inactive propranolol 80 mg tablet RxNorm: 596922 1 Tablet(s) PO QHS 09/19/19 13 02/23/2013 Inactive hydrocodone-acetaminophen 10 mg-325 mg tablet RxNorm: 706113 2 1-2 Tablet(s) PO QID 07/25/2012 02/23/2013 Inactive Ambien 10 mg tablet RxNorm: 050597 1 Tablet(s) PO QHS as needed for sleep 07/10/2012 01/27/2013 Inactive propranolol 80 mg tablet RxNorm: 446436 1 Tablet(s) PO QHS 05/13/20 12 09/18/2012 Inactive hydrocodone-acetaminophen 10 mg-325 mg tablet RxNorm: 091583 2 1-2 Tablet(s) PO QID 05/02/2012 No Stop Date Active Restoril 15 mg Cap RxNorm: 898176 1-2 Capsule(s) PO QHS 05/02/2012 Inactive propranolol 80 mg tablet RxNorm: 574821 1 Tablet(s) PO QHS 05/02/20 12 05/12/2012 Inactive Chantix Starting Month Box 0.5 mg (11)-1 mg (42) Tabs in a Dose Pack RxNorm: 600238 Tablet(s) PO As Directed 04/01/2012 01/27/2013 Inactive simvastatin 40 mg tablet RxNorm: 480691 1 Tablet(s) PO QD 03/28/2012 09/18/2012 Inactive simvastatin 40 mg Tab RxNorm: 950420 1 Tablet(s) PO QD 03/22/201207/2012 Inactive Effient 10 mg Tab RxNorm: 563878 1 Tablet(s) PO QD 03/22/2012 012 Inactive Prilosec 40 mg Capsule, delayed release RxNorm: 437661 1 Capsul e(s) PO QD 03/22/2012 09/18/2012 Inactive Prilosec 40 mg Capsule, delayed release RxNorm: 993015 1 Capsul e(s) PO QD 03/19/2012 03/21/2012 Inactive Cymbalta 60 mg capsule,delayed release RxNorm: 653847 1 Capsule (s) PO QD 03/04/2012 08/30/2012 Inactive hydrocodone-acetaminophen 10 mg-325 mg Tab RxNorm: 7780285 1-2 T ablet(s) PO QID 01/23/2012 No Stop Date Active Cymbalta 60 mg Capsule, delayed release RxNorm: 087791 1 Capsul e(s) PO QD 01/23/2012 03/03/2012 Inactive Cipro 500 mg Tab RxNorm: 640428 1 Tablet(s) PO BID 12/20/2011 012 Inactive Cymbalta 60 mg Capsule, delayed release RxNorm: 195139 1 Capsul e(s) PO QD 12/13/2011 01/22/2012 Inactive nortriptyline 75 mg Cap RxNorm: 344866 1 Capsule(s) PO QHS 11/29/1904/02/2012 Inactive Cymbalta 60 mg Cap RxNorm: 342755 1 Capsule(s) PO QD 10/24/201112/11 Inactive propranolol 80 mg Tab RxNorm: 575081 1 Tablet(s) PO QHS 10/24/2011 Inactive hydrocodone-acetaminophen 10 mg-325 mg Tab RxNorm: 6639669 1-2 T ablet(s) PO QID 09/29/2011 No Stop Date Active hydrocodone-acetaminophen 10 mg-325 mg Tab RxNorm: 3348924 1-2 T ablet(s) PO QID 07/25/2011 No Stop Date Active hydrocodone-acetaminophen 10 mg-325 mg Tab RxNorm: 3011268 1-2 T ablet(s) PO QID 02/14/2011 No Stop Date Active Prilosec 40 mg Cap RxNorm: 171480 1 Capsule(s) PO 01/03/2011 04/28/20 19 Inactive nortriptyline 75 mg Cap RxNorm: 108483 1 Capsule(s) PO QHS 01/04/20 11 07/01/2011 Inactive Neurontin 600 mg Tab RxNorm: 560729 1 Tablet(s) PO QHS 12/08/201011/2011 Inactive hydrocodone-acetaminophen 5 mg-500 mg Tab RxNorm: 380594 2 Tablet(s) PO Q4-6H prn 10/20/2010 01/08/2011 Inactive Diltzac ER 240 mg Cap RxNorm: 188824 1 Capsule(s) PO QD 07/14/2010 Inactive Nortriptyline 75 mg Cap RxNorm: 361323 1 Capsule(s) PO QHS 05/09/20 10 01/12/2019 Inactive Neurontin 600 mg Tab RxNorm: 653165 1 Tablet(s) PO QD 03/17/201012/17 Inactive Nortriptyline 75 mg Cap RxNorm: 351050 1 Capsule(s) PO 01/12/2010 Inactive Nortriptyline 50 mg Cap RxNorm: 061619 1 Capsule(s) PO QHS 01/13/20 10 01/11/2010 Inactive Diltzac ER 240 mg Cap RxNorm: 254249 1 Capsule(s) PO QD 12/06/2009 Inactive aspirin 81 mg Tab RxNorm: 703733 1 Tablet(s) PO QD No Start Date Active Vitamin D3 2,000 unit tablet RxNorm: 215723 1 Tablet(s) PO QD No Star t Date Active Lyrica 75 mg capsule RxNorm: 601792 1 Capsule(s) PO QHS No Start Date Active uhxkiuley-vlnlpzmlv-illhlp complex no.233 oral RxNorm: oral No Start Date Active primidone 50 mg tablet RxNorm: 340829 2 Tablet(s) PO BID No Start Date Active Prilosec 40 mg Capsule, delayed release RxNorm: 723843 1 Capsul e(s) PO QD No Start Date 03/18/2012 Inactive Prilosec 20 mg Cap RxNorm: 906155 1 Capsule(s) PO QHS No Start Date 0 01/02/2011 Inactive primidone 50 mg tablet RxNorm: 570685 1/2 Tablet(s) PO QHS for 1week then go full tab if needed No Start Date 05/01/2017 Inactive ProAir HFA 90 mcg/actuation aerosol inhaler RxNorm: 290071 2 Puff(s) INH Q4H as needed No Start Date 10/29/2017 Inactive clonazepam 0.5 mg tablet RxNorm: 297605 1/2 Tablet(s) PO BID No Sta rt Date 02/12/2017 Inactive Pepcid AC 10 mg Tab RxNorm: 530470 1 Tablet(s) PO QAM No Start Date 0 02/19/2011 Inactive Coreg Oral RxNorm: Oral No Start Date 01/12/2014 Inactive primidone 50 mg tablet RxNorm: 701189 1/2 Tablet(s) PO QD for 7 days then increase to 1 tablet at bedtime No Start Date 01/08/2017 Inactive Medrol (Jose) 4 mg tablets in a dose pack RxNorm: 533474 Tablet(s) PO As Directed No Start Date 01/12/2016 Inactive Plavix 75 mg tablet RxNorm: 470141 1 Tablet(s) PO QD No Start Date Inactive cyclobenzaprine 10 mg tablet RxNorm: 310115 1 Tablet(s) PO TID as needed for spasm No Start Date 07/03/2013 Inactive Bevespi Aerosphere 9 mcg-4.8 mcg HFA aerosol inhaler RxNorm: 0849956 2 Puff(s) INH BID No Start Date 02/18/2019 Inactive tramadol 50 mg tablet RxNorm: 972855 1-2 Tablet(s) PO TID as ne eded for pain No Start Date 01/12/2019 Inactive clonazepam 1 mg tablet RxNorm: 903424 1 Tablet(s) PO QAM No Start D ate 09/18/2018 Inactive hydrocodone-acetaminophen 5 mg-500 mg Tab RxNorm: 532843 2 Tablet(s) PO Q4-6H prn No Start Date 10/19/2010 Inactive lisinopril 20 mg Tab RxNorm: 787076 1/2 Tablet(s) PO QD No Start Da te 03/12/2011 Inactive Protonix 40 mg tablet,delayed release RxNorm: 972789 1 Tablet(s ) PO QD No Start Date 06/07/2014 Inactive Lipitor Oral RxNorm: Oral No Start Date 01/12/2014 Inactive primidone 50 mg tablet RxNorm: 705181 2 Tablet(s) PO QAM and 1 tablet at HS No Start Date 02/17/2019 Inactive hydrocodone-acetaminophen 10 mg-325 mg Tab RxNorm: 6506010 1-2 T ablet(s) PO QID No Start Date 02/13/2011 Inactive Ultram 50 mg tablet RxNorm: 490125 1-2 Tablet(s) PO QID as need ed for pain No Start Date 09/18/2012 Inactive Effient 10 mg Tab RxNorm: 652258 1 Tablet(s) PO QD No Start Date 01/2012 Inactive Bevespi Aerosphere 9 mcg-4.8 mcg HFA aerosol inhaler RxNorm: 1866067 2 Puff(s) INH BID No Start Date 10/29/2017 Inactive Neurontin Oral RxNorm: Oral No Start Date 01/12/2010 Inactive primidone 50 mg tablet RxNorm: 774852 1 Tablet(s) PO QD No Start Da te 01/12/2019 Inactive Chantix Starting Month Box 0.5 mg (11)-1 mg (42) Tabs in a Dose Pack RxNorm: 570284 Tablet(s) PO No Start Date 03/31/2012 Inactive atenolol 25 mg Tab RxNorm: 166326 1 Tablet(s) PO QD No Start Date 02/2012 Inactive Neurontin 600 mg Tab RxNorm: 163684 1 Tablet(s) PO QD No Start Date 0 03/16/2010 Inactive Nucynta 50 mg tablet RxNorm: 427182 1-2 Tablet(s) PO Q6H as nee ded for pain No Start Date 12/31/2012 Inactive simvastatin 40 mg Tab RxNorm: 383861 1 Tablet(s) PO QD No Start Date 03/21/2012 Inactive Medication Administered No Medication Administered data Immunizations Vaccine Codes Date Status Influenza CVX: 135 07/04/2017 Complete Results Observation Observation Code Item Item Code Result Date [facility] Location COMPLETE BLOOD COUNT [id number] WBC 4.9 10e9/L 09/04/20 18 Unknown COMPLETE BLOOD COUNT [id number] RBC 4.42 10e12/L 2017 Unknown COMPLETE BLOOD COUNT [id number] HEMOGLOBIN 13.4 g/dL 09/04/20 18 Unknown COMPLETE BLOOD COUNT [id number] HEMATOCRIT 40.5 % 09/04/20 18 Unknown COMPLETE BLOOD COUNT 9556406 MCV 91.6 fL 8 Unknown COMPLETE BLOOD COUNT 6590931 MCH 30.3 pg 8 Unknown COMPLETE BLOOD COUNT 7296041 MCHC 33.1 g/dL 8 Unknown COMPLETE BLOOD COUNT [id number] PLATELET COUNT 224 10e9/L Unknown COMPLETE BLOOD COUNT 7219968 Mean Plt Volume 9.9 fL Unknown COMPLETE BLOOD COUNT 4644722 Neut Auto 60.8 % 8 Unknown COMPLETE BLOOD COUNT [id number] Lymph Auto 26.8 % 09/04/20 18 Unknown COMPLETE BLOOD COUNT 0622073 [place] Auto 10.4 % 8 Unknown COMPLETE BLOOD COUNT 3761252 RDW 12.8 % 8 Unknown COMPLETE BLOOD COUNT 3785433 Eos Auto 1.6 % 8 Unknown COMPLETE BLOOD COUNT 6579041 Baso Auto 0.4 % 8 Unknown COMPLETE BLOOD COUNT [id number] Neutrophil Abs 2.98 10e9/L Unknown COMPLETE BLOOD COUNT 2682812 Lymphocyte Abs 1.31 10e9/L Unknown COMPLETE BLOOD COUNT 0274255 Monocyte Abs 0.51 10e9/L 08/17 Unknown COMPLETE BLOOD COUNT 0303719 Eosinophil Abs 0.08 10e9/L Unknown COMPLETE BLOOD COUNT 2985545 RDW-SD 41.6 fL 8 Unknown COMPLETE BLOOD COUNT [id number] Basophil Abs 0.02 10e9/L 08/17 Unknown COMPREHENSIVE METABOLIC 50568 AST 16 U/L 2017 Unknown COMPREHENSIVE METABOLIC 67588 ALT 8 U/L 2017 Unknown COMPREHENSIVE METABOLIC 74349 BUN 12 mg/dL 2017 Unknown COMPREHENSIVE METABOLIC 29457 ALBUMIN 4.4 g/dL 2017 Unknown COMPREHENSIVE METABOLIC 24897 CHLORIDE 107 mmol/L 09/04 Unknown COMPREHENSIVE METABOLIC 68185 Bili Total 1.0 mg/dL 09/04 Unknown COMPREHENSIVE METABOLIC 82570 ALK PHOS 58 U/L 2017 Unknown COMPREHENSIVE METABOLIC 16343 SODIUM 142 mmol/L 09/04 Unknown COMPREHENSIVE METABOLIC 12889 CREATININE 0.97 mg/dL 08/17 Unknown COMPREHENSIVE METABOLIC 53071 CALCIUM 9.2 mg/dL 2017 Unknown COMPREHENSIVE METABOLIC 75309 POTASSIUM 4.6 mmol/L 09/04 Unknown COMPREHENSIVE METABOLIC 00700 Total Protein 6.5 g/dL Unknown COMPREHENSIVE METABOLIC 48101 Glucose 96 mg/dL 2017 Unknown COMPREHENSIVE METABOLIC 82505 Bicarbonate 29 mmol/L 08/17 Unknown COMPREHENSIVE METABOLIC 55117 AGAP 6 mmol/L 2017 Unknown LIPID GROUP 09075 Cholesterol 182 mg/dL 09/04/2018 Unkno wn LIPID GROUP 37955 Triglyceride 84 mg/dL 09/04/2018 Unkn own LIPID GROUP 84591 HDL CHOLESTEROL 76 mg/dL 09/04/2018 U nknown LIPID GROUP 91958 Chol/HDL Ratio 2.39 ratio 09/04/2018 U nknown LIPID GROUP 49722 NON-HDL Chol 106 mg/dL 09/04/2018 Unkn own LIPID GROUP 30148 LDL Cholesterol 89 mg/dL 09/04/2018 U nknown GFR CALC 0392733 GFR Non Afr Amr >60 mL/min 09/04/2018 Un known GFR CALC 6209353 GFR Afr Amr >60 mL/min 09/04/2018 Unknow n THYROID STIMULATING HORMONE 52292 TSH 0.713 uIU/mL 09/04/2018 Unknown PSA EQUIMOLAR BARBIE 09778 PSA Total 0.66 ng/mL 8 Unknown A FOOD C P [id number] [place] Cl Class 0 11/17/2017 Unknown A FOOD C P 5757355 [place] Ct <0.35 kU/L 11/17/2017 Unknow n A FOOD C P 3217052 [place] Cl Class 0 11/17/2017 Unkn own A FOOD C P 8098042 [place] Ct <0.35 kU/L 11/17/2017 Unk nown A FOOD C P 7067918 Egg White Cl Class 0 11/17/2017 Unkno wn A FOOD C P 0349692 Egg White Ct <0.35 kU/L 11/17/2017 Unkn own A FOOD C P 9200690 Egg Yolk Cl Class 0 11/17/2017 Unknow n A FOOD C P 2347270 Egg Yolk Ct <0.35 kU/L 11/17/2017 Unkno wn A FOOD C P 7117848 Cow Milk Cl Class 0 11/17/2017 Unknow n A FOOD C P 2065844 Cow Milk Ct <0.35 kU/L 11/17/2017 Unkno wn A FOOD C P 7036170 Peanut Cl Class 0 11/17/2017 Unknown A FOOD C P 7736477 Peanut Ct <0.35 kU/L 11/17/2017 Unknown A FOOD C P 7647476 Sh[place] Cl Class 0 11/17/2017 Unknown A FOOD C P 4422059 [place] Ct <0.35 kU/L 11/17/2017 Unknown A FOOD C P 9417517 [place] Cl Class 0 11/17/2017 Unknown A FOOD C P 3207201 [place] Ct <0.35 kU/L 11/17/2017 Unknow n A FOOD C P 6821850 [place] Cl Class 0 11/17/2017 Unknown A FOOD C P 2475382 [place] Ct <0.35 kU/L 11/17/2017 Unknown A FOOD C P 5654021 Potato Cl Class 0 11/17/2017 Unknown A FOOD C P 5992433 Potato Ct <0.35 kU/L 11/17/2017 Unknown A FOOD C P 8749090 Beef Cl Class 2 11/17/2017 Unknown A FOOD C P 2256361 Beef Ct 0.88 kU/L 11/17/2017 Unknown A FOOD C P 5731887 [place] Cl Class 0 11/17/2017 Unknown A FOOD C P 3966654 [place] Ct <0.35 kU/L 11/17/2017 Unknown A FOOD C P 8413035 Pork Cl Class 0 11/17/2017 Unknown A FOOD C P 2501967 [place] Ct <0.35 kU/L 11/17/2017 Unknown A FOOD C P 1212966 [place] Cl Class 0 11/17/2017 Unknown A FOOD C P [id number] [place] Ct <0.35 kU/L 11/17/2017 Unknown A FOOD C P 9623389 [place] Cl Class 0 11/17/2017 Unkn own A FOOD C P 4110138 [place] Ct <0.35 kU/L 11/17/2017 Unk nown A FOOD C P [id number] [place] Cl Class 0 11/17/2017 Unknown A FOOD C P 7730716 [place] Ct <0.35 kU/L 11/17/2017 Unknown A FOOD C P 7058555 [place] Cl Class 0 11/17/2017 Unknown A FOOD C P 7403476 [place] Ct <0.35 kU/L 11/17/2017 Unknown A FOOD C P 3807478 [place] CL Class 0 11/17/2017 Unknown A FOOD C P 7962076 [place] <0.35 kU/L 11/17/2017 Unknown A FOOD C P 2940424 [place] Cl Class 0 11/17/2017 Unknown A FOOD C P 8703374 [place] Ct <0.35 kU/L 11/17/2017 Unknown A FOOD C P 0364211 Oat Cl Class 0 11/17/2017 Unknown A FOOD C P 4693755 Oat Ct <0.35 kU/L 11/17/2017 Unknown A FOOD C P 8354064 [place] Cl Class 0 11/17/2017 Unknown A FOOD C P 4217489 [place] Ct <0.35 kU/L 11/17/2017 Unknown A FOOD C P 8408374 [place] CL Class 0 11/17/2017 Un known A FOOD C P 3485543 [place] Ct <0.35 kU/L 11/17/2017 U nknown A FOOD C P 9217668 [place] Cl Class 0 11/17/2017 Unknown A FOOD C P 4825309 [place] Ct <0.35 kU/L 11/17/2017 Unknown A FOOD C P 2808214 [place] Meat Cl Class 0 11/17/2017 Unkn own A FOOD C P 8713567 [place] Ct <0.35 kU/L 11/17/2017 Unk nown A NUTS PNL 6952450 [place] Cl Class 0 11/17/2017 Unknown A NUTS PNL 6479506 Peanut Ct <0.35 kU/L 11/17/2017 Unknown A NUTS PNL 5371233 [place] Meat Cl Class 0 11/17/2017 Unk nown A NUTS PNL 0931370 [place] [facility] <0.35 kU/L 11/17/2017 Un known A NUTS PNL 1435729 [place] Cl Class 0 11/17/2017 Unkn own A NUTS PNL 8966258 [place] Ct <0.35 kU/L 11/17/2017 Unk nown A NUTS PNL 7322039 [place] Cl Class 0 11/17/2017 Unknown A NUTS PNL 9816276 [place] Ct <0.35 kU/L 11/17/2017 Unknown A NUTS PNL 8735162 [place] Cl Class 0 11/17/2017 Unknow n A NUTS PNL 4557470 [place] Ct <0.35 kU/L 11/17/2017 Unkno wn A NUTS PNL 2943017 [place] Cl Class 0 11/17/2017 Unkno wn A NUTS PNL 1932523 [place] Ct <0.35 kU/L 11/17/2017 Unkn own A NUTS PNL 8294752 [place] Cl Class 0 11/17/2017 Unknown A NUTS PNL 6931343 [place] Ct <0.35 kU/L 11/17/2017 Unknown A NUTS PNL 3709892 [place] Cl Class 0 11/17/2017 Unkno wn A NUTS PNL 3654423 [place] Ct <0.35 kU/L 11/17/2017 Unkn own A NUTS PNL 3175914 Allergen Interp See Note 11/17/2017 Un known A FRT/VG P 8244176 [place] Cl Class 0 11/17/2017 Unkn own A FRT/VG P 0556823 [place] Ct <0.35 kU/L 11/17/2017 Unk nown A FRT/VG P 0271421 [place] Cl Class 0 11/17/2017 Unknown A FRT/VG P 8971837 [place] Ct <0.35 kU/L 11/17/2017 Unknown A FRT/VG P [id number] [place] Cl Class 0 11/17/2017 Unkn own A FRT/VG P 3339629 [place] Ct <0.35 kU/L 11/17/2017 Unk nown A FRT/VG P 5750612 [place] Cl Class 0 11/17/2017 Unknown A FRT/VG P 6400804 [place] Ct <0.35 kU/L 11/17/2017 Unknown A FRT/VG P 2705558 [place] Cl Class 0 11/17/2017 Unknown A FRT/VG P [id number] [place] Ct <0.35 kU/L 11/17/2017 Unknown A FRT/VG P 7099347 [place] Cl Class 1 11/17/2017 Unknown A FRT/VG P 1358651 [place] Ct 0.48 kU/L 11/17/2017 Unknown A FRT/VG P 8700837 [place] Cl Class 0 11/17/2017 Unk nown A FRT/VG P 3871506 [place] Ct <0.35 kU/L 11/17/2017 Un known A FRT/VG P 7599635 [place] Cl Class 0 11/17/2017 Unk nown A FRT/VG P 0329324 [place] Ct <0.35 kU/L 11/17/2017 Un known A FRT/VG P 8654626 [place] Cl Class 0 11/17/2017 Unknown A FRT/VG P 3756427 [place] Ct <0.35 kU/L 11/17/2017 Unknown A FRT/VG P 5971007 [place] Cl Class 0 11/17/2017 Unknown A FRT/VG P 0446795 [place] Ct <0.35 kU/L 11/17/2017 Unknown A FRT/VG P 7791851 [place] Cl Class 0 11/17/2017 Unkn own A FRT/VG P 3374281 [place] Ct <0.35 kU/L 11/17/2017 Unk nown A FRT/VG P 4248036 [place]t [place] Cl Class 0 11/17/2017 Unkn own A FRT/VG P 5253391 Swt [place] Ct <0.35 kU/L 11/17/2017 Unk nown THYROID STIMULATING HORMONE 01358 TSH 1.371 uIU/mL 09/03/2017 Unknown FREE T4 45765 T4 Free 1.26 ng/dL 09/03/2017 Unknown ASSAY TRIIODOTHYRONINE (T3) 71420 T3 Total 0.9 ng/mL Unknown COMPLETE BLOOD COUNT 4597766 WBC 5.9 10e9/L 07/31/20 17 Unknown COMPLETE BLOOD COUNT 2946317 RBC 4.64 10e12/L 2016 Unknown COMPLETE BLOOD COUNT 2879168 HEMOGLOBIN 14.2 g/dL 07/31/20 17 Unknown COMPLETE BLOOD COUNT 4570669 HEMATOCRIT 42.1 % 07/31/20 17 Unknown COMPLETE BLOOD COUNT 5705012 MCV 90.7 fL 7 Unknown COMPLETE BLOOD COUNT 9326698 MCH 30.6 pg 7 Unknown COMPLETE BLOOD COUNT 2854514 MCHC 33.7 g/dL 7 Unknown COMPLETE BLOOD COUNT 7077936 PLATELET COUNT 195 10e9/L Unknown COMPLETE BLOOD COUNT 0320454 Mean Plt Volume 10.0 fL Unknown COMPLETE BLOOD COUNT 5056527 Neut Auto 47.5 % 7 Unknown COMPLETE BLOOD COUNT 5368281 Lymph Auto 37.4 % 07/31/20 17 Unknown COMPLETE BLOOD COUNT 1017671 [place] Auto 11.7 % 7 Unknown COMPLETE BLOOD COUNT 7649003 Eos Auto 3.2 % 7 Unknown COMPLETE BLOOD COUNT 8507916 RDW 12.8 % 7 Unknown COMPLETE BLOOD COUNT 7287968 Baso Auto 0.2 % 7 Unknown COMPLETE BLOOD COUNT 0216374 Neutrophil Abs 2.80 10e9/L Unknown COMPLETE BLOOD COUNT 0325925 Lymphocyte Abs 2.21 10e9/L Unknown COMPLETE BLOOD COUNT 8679764 Monocyte Abs 0.69 10e9/L 07/18 Unknown COMPLETE BLOOD COUNT 2124102 Eosinophil Abs 0.19 10e9/L Unknown COMPLETE BLOOD COUNT 2048057 RDW-SD 41.6 fL 7 Unknown COMPLETE BLOOD COUNT 1072169 Basophil Abs 0.01 10e9/L 07/18 Unknown LIPID GROUP 93744 Cholesterol 186 mg/dL 07/31/2017 Unkno wn LIPID GROUP 90320 Triglyceride 129 mg/dL 07/31/2017 Unkn own LIPID GROUP 49090 HDL CHOLESTEROL 79 mg/dL 07/31/2017 U nknown LIPID GROUP 77571 Chol/HDL Ratio 2.35 ratio 07/31/2017 U nknown LIPID GROUP 42307 NON-HDL Chol 107 mg/dL 07/31/2017 Unkn own LIPID GROUP 16758 LDL Cholesterol 81 mg/dL 07/31/2017 U nknown GFR CALC 4448298 GFR Non Afr Amr >60 mL/min 07/31/2017 Un known GFR CALC 3311659 GFR Afr Amr >60 mL/min 07/31/2017 Unknow n COMPREHENSIVE METABOLIC 44545 AST 19 U/L 2016 Unknown COMPREHENSIVE METABOLIC 54960 ALT 12 U/L 2016 Unknown COMPREHENSIVE METABOLIC 25411 BUN 15 mg/dL 2016 Unknown COMPREHENSIVE METABOLIC 69150 ALBUMIN 4.4 g/dL 2016 Unknown COMPREHENSIVE METABOLIC 59937 CHLORIDE 102 mmol/L 07/31 Unknown COMPREHENSIVE METABOLIC 43018 Bili Total 0.9 mg/dL 07/31 Unknown COMPREHENSIVE METABOLIC 79361 ALK PHOS 53 U/L 2016 Unknown COMPREHENSIVE METABOLIC 41716 SODIUM 138 mmol/L 07/31 Unknown COMPREHENSIVE METABOLIC 51997 CREATININE 1.06 mg/dL 07/18 Unknown COMPREHENSIVE METABOLIC 70535 CALCIUM 9.3 mg/dL 2016 Unknown COMPREHENSIVE METABOLIC 86570 POTASSIUM 4.0 mmol/L 07/31 Unknown COMPREHENSIVE METABOLIC 41868 Total Protein 6.8 g/dL Unknown COMPREHENSIVE METABOLIC 65916 Glucose 86 mg/dL 2016 Unknown COMPREHENSIVE METABOLIC 78092 Bicarbonate 28 mmol/L 07/18 Unknown COMPREHENSIVE METABOLIC 86882 AGAP 8 mmol/L 2016 Unknown COMPREHENSIVE METABOLIC 73725 AST 18 U/L 2015 Unknown COMPREHENSIVE METABOLIC 90870 ALT 9 U/L 2015 Unknown COMPREHENSIVE METABOLIC 90741 BUN 11 mg/dL 2015 Unknown COMPREHENSIVE METABOLIC 70135 ALBUMIN 4.2 g/dL 2015 Unknown COMPREHENSIVE METABOLIC 78730 CHLORIDE 104 mmol/L 05/19 Unknown COMPREHENSIVE METABOLIC 29701 Bili Total 1.2 mg/dL 05/19 Unknown COMPREHENSIVE METABOLIC 37048 ALK PHOS 54 U/L 2015 Unknown COMPREHENSIVE METABOLIC 11045 SODIUM 140 mmol/L 05/19 Unknown COMPREHENSIVE METABOLIC 06548 CREATININE 1.03 mg/dL 10/2015 Unknown COMPREHENSIVE METABOLIC 73085 CALCIUM 9.3 mg/dL 2015 Unknown COMPREHENSIVE METABOLIC 12334 POTASSIUM 4.9 mmol/L 05/19 Unknown COMPREHENSIVE METABOLIC 63619 Total Protein 6.7 g/dL Unknown COMPREHENSIVE METABOLIC 95393 Glucose 92 mg/dL 2015 Unknown COMPREHENSIVE METABOLIC 18197 Bicarbonate 28 mmol/L 10/2015 Unknown COMPREHENSIVE METABOLIC 91411 AGAP 8 mmol/L 2015 Unknown THYROID STIMULATING HORMONE 92571 TSH 1.545 uIU/mL 05/19/2016 Unknown GFR CALC 6368586 GFR Non Afr Amr >60 mL/min 05/19/2016 Un known GFR CALC 0507954 GFR Afr Amr >60 mL/min 05/19/2016 Unknow n VITAMIN B 12 24958 VITAMIN B12 298 pg/mL 05/19/2016 Unkn own COMPLETE BLOOD COUNT 3564741 WBC 5.2 10e9/L 05/19/20 16 Unknown COMPLETE BLOOD COUNT 2093558 RBC 4.34 10e12/L 2015 Unknown COMPLETE BLOOD COUNT 4074634 HEMOGLOBIN 12.9 g/dL 05/19/20 16 Unknown COMPLETE BLOOD COUNT 4850462 HEMATOCRIT 38.9 % 05/19/20 16 Unknown COMPLETE BLOOD COUNT 2889558 MCV 89.6 fL 6 Unknown COMPLETE BLOOD COUNT 7950355 MCH 29.7 pg 6 Unknown COMPLETE BLOOD COUNT 8022056 MCHC 33.2 g/dL 6 Unknown COMPLETE BLOOD COUNT 0963860 PLATELET COUNT 200 10e9/L 10/2015 Unknown COMPLETE BLOOD COUNT 1062300 Mean Plt Volume 10.1 fL 10/2015 Unknown COMPLETE BLOOD COUNT 4055705 Neut Auto 45.4 % 6 Unknown COMPLETE BLOOD COUNT 6438291 Lymph Auto 35.6 % 05/19/20 16 Unknown COMPLETE BLOOD COUNT 6912456 [place] Auto 11.9 % 6 Unknown COMPLETE BLOOD COUNT 4517666 RDW 12.7 % 6 Unknown COMPLETE BLOOD COUNT 8293082 Eos Auto 6.7 % 6 Unknown COMPLETE BLOOD COUNT 9376502 Baso Auto 0.4 % 6 Unknown COMPLETE BLOOD COUNT 7191078 Neutrophil Abs 2.36 10e9/L Unknown COMPLETE BLOOD COUNT 1807474 Lymphocyte Abs 1.85 10e9/L Unknown COMPLETE BLOOD COUNT 3413535 Monocyte Abs 0.62 10e9/L 10/2015 Unknown COMPLETE BLOOD COUNT 3017766 Eosinophil Abs 0.35 10e9/L Unknown COMPLETE BLOOD COUNT 8846182 RDW-SD 40.6 fL 6 Unknown COMPLETE BLOOD COUNT 9098483 Basophil Abs 0.02 10e9/L 10/2015 Unknown LIPID GROUP 64993 Cholesterol 197 mg/dL 05/19/2016 Unkno wn LIPID GROUP 72837 Triglyceride 92 mg/dL 05/19/2016 Unkn own LIPID GROUP 64984 HDL CHOLESTEROL 58 mg/dL 05/19/2016 U nknown LIPID GROUP 90460 Chol/HDL Ratio 3.40 ratio 05/19/2016 U nknown LIPID GROUP 20516 NON-HDL Chol 139 mg/dL 05/19/2016 Unkn own LIPID GROUP 15619 LDL Cholesterol 121 mg/dL 05/19/2016 U nknown FREE T4 79292 T4 Free 1.19 ng/dL 05/19/2016 Unknown COMPREHENSIVE METABOLIC 43448 AST 19 U/L 2014 Unknown COMPREHENSIVE METABOLIC 44610 ALT 10 IU/L 2014 Unknown COMPREHENSIVE METABOLIC 57433 BUN 20 MG/DL 2014 Unknown COMPREHENSIVE METABOLIC 39305 ALBUMIN 4.4 GM/DL 2014 Unknown COMPREHENSIVE METABOLIC 09373 CHLORIDE 104 MMOL/L 04/05 Unknown COMPREHENSIVE METABOLIC 09929 BILI TOT 2.2 MG/DL 2014 Unknown COMPREHENSIVE METABOLIC 53297 ALK PHOS 55 U/L 2014 Unknown COMPREHENSIVE METABOLIC 12285 SODIUM 138 MMOL/L 04/05 Unknown COMPREHENSIVE METABOLIC 89750 CREATININE 1.04 MG/DL 03/18 Unknown COMPREHENSIVE METABOLIC 34140 CALCIUM 9.3 MG/DL 2014 Unknown COMPREHENSIVE METABOLIC 88803 POTASSIUM 4.5 MMOL/L 04/05 Unknown COMPREHENSIVE METABOLIC 46045 PROT TOT 6.7 GM/DL 2014 Unknown COMPREHENSIVE METABOLIC 16581 Glucose 77 MG/DL 2014 Unknown COMPREHENSIVE METABOLIC 21495 BICARB 25 MMOL/L 2014 Unknown COMPREHENSIVE METABOLIC 51958 ANION GAP 9 MEQ/L 2014 Unknown GFR CALC 1353165 GFR AA >60 ML/MIN 04/05/2015 Unknown GFR CALC 6901546 GFR NON-AA >60 ML/MIN 04/05/2015 Unknown LIPID GROUP 02942 HDL TEST 60 MG/DL 04/05/2015 Unknown LIPID GROUP 91120 TRIG 70 MG/DL 04/05/2015 Unknown LIPID GROUP 11926 TEST LDL 137 MG/DL 04/05/2015 Unknown LIPID GROUP 87914 CHOL 211 MG/DL 04/05/2015 Unknown LIPID GROUP 02290 RCHOL/HDL 3.52 RATIO 04/05/2015 Unknow n LIPID GROUP 65189 NON-HDL CH 151 MG/DL 04/05/2015 Unknow n COMPLETE BLOOD COUNT 9062616 WBC 5.3 10e9/L 04/05/20 15 Unknown COMPLETE BLOOD COUNT 8989477 RBC 4.42 10e12/L 2014 Unknown COMPLETE BLOOD COUNT 5981618 HGB 13.4 g/dL 5 Unknown COMPLETE BLOOD COUNT 3852599 HCT DET 39.6 % 5 Unknown COMPLETE BLOOD COUNT 7710337 MCV 89.6 fL 5 Unknown COMPLETE BLOOD COUNT 6176152 MCH 30.3 pg 5 Unknown COMPLETE BLOOD COUNT 5168893 MCHC 33.8 g/dL 5 Unknown COMPLETE BLOOD COUNT 4103521 PLT 201 10e9/L 04/05/20 15 Unknown COMPLETE BLOOD COUNT 6322780 MPV 10.3 fL 5 Unknown COMPLETE BLOOD COUNT 3934375 LUPE % 56.4 % 5 Unknown COMPLETE BLOOD COUNT 5705970 LY % 24.8 % 5 Unknown COMPLETE BLOOD COUNT 0076636 MON % 12.8 % 5 Unknown COMPLETE BLOOD COUNT 2380107 EOS % 5.4 % 5 Unknown COMPLETE BLOOD COUNT 7499377 BASO % 0.6 % 5 Unknown COMPLETE BLOOD COUNT 6404029 RDW 13.2 % 5 Unknown COMPLETE BLOOD COUNT 3575483 ABS LUPE 2.99 10e9/L 015 Unknown COMPLETE BLOOD COUNT 0959258 ABS LYMPH 1.31 10e9/L 015 Unknown COMPLETE BLOOD COUNT 9863900 ABS MONO 0.68 10e9/L 015 Unknown COMPLETE BLOOD COUNT 0173943 ABS EOS 0.29 10e9/L 015 Unknown COMPLETE BLOOD COUNT 5943705 ABS BASO 0.03 10e9/L 015 Unknown COMPLETE BLOOD COUNT 2427597 RDW-SD 42.3 fL 5 Unknown LIPID GROUP 36083 HDL TEST 51 MG/DL 07/19/2012 Unknown LIPID GROUP 54807 TRIG 129 MG/DL 07/19/2012 Unknown LIPID GROUP 67252 TEST LDL 98 MG/DL 07/19/2012 Unknown LIPID GROUP 87740 CHOL 175 MG/DL 07/19/2012 Unknown LIPID GROUP 50199 RCHOL/HDL 3.43 RATIO 07/19/2012 Unknow n COMPREHENSIVE METABOLIC 84192 AST 18 U/L 2011 Unknown COMPREHENSIVE METABOLIC 06508 ALT 12 IU/L 2011 Unknown COMPREHENSIVE METABOLIC 91267 BUN 10 MG/DL 2011 Unknown COMPREHENSIVE METABOLIC 69905 ALBUMIN 4.1 GM/DL 2011 Unknown COMPREHENSIVE METABOLIC 57244 CHLORIDE 103 MMOL/L 07/19 Unknown COMPREHENSIVE METABOLIC 55818 BILI TOT 0.9 MG/DL 2011 Unknown COMPREHENSIVE METABOLIC 29228 ALK PHOS 62 U/L 2011 Unknown COMPREHENSIVE METABOLIC 35482 SODIUM 138 MMOL/L 07/19 Unknown COMPREHENSIVE METABOLIC 36579 CREATININE 1.08 MG/DL 10/2011 Unknown COMPREHENSIVE METABOLIC 84547 CALCIUM 9.1 MG/DL 2011 Unknown COMPREHENSIVE METABOLIC 37703 POTASSIUM 4.2 MMOL/L 07/19 Unknown COMPREHENSIVE METABOLIC 02878 PROT TOT 6.7 GM/DL 2011 Unknown COMPREHENSIVE METABOLIC 62138 Glucose 101 MG/DL 2011 Unknown COMPREHENSIVE METABOLIC 94478 BICARB 27 MMOL/L 2011 Unknown COMPREHENSIVE METABOLIC 16491 ANION GAP 8 MEQ/L 2011 Unknown GFR CALC 4721998 GFR AA >60 ML/MIN 07/19/2012 Unknown GFR CALC 4768332 GFR NON-AA >60 ML/MIN 07/19/2012 Unknown Procedures Procedure Codes Date ROUTINE VENIPUNCTURE CPT-4: 97817 09/30/2019 COMPREHEN METABOLIC PANEL CPT-4: 00085 09/30/2019 COMPLETE CBC W/AUTO DIFF WBC CPT-4: 05656 09/30/2019 ASSAY OF PSA TOTAL CPT-4: 74463 09/30/2019 ASSAY THYROID STIM HORMONE CPT-4: 95043 09/30/2019 LIPID PANEL CPT-4: 01738 09/30/2019 ROUTINE VENIPUNCTURE CPT-4: 62534 09/24/2019 COMPLETE CBC W/AUTO DIFF WBC CPT-4: 23956 09/24/2019 COMPREHEN METABOLIC PANEL CPT-4: 20549 09/24/2019 LIPID PANEL CPT-4: 62256 09/24/2019 ASSAY THYROID STIM HORMONE CPT-4: 41424 09/24/2019 THER/PROPH/DIAG INJ SC/IM CPT-4: 11215 01/13/2019 TRIAMCINOLONE ACET INJ NOS CPT-4: J3301 01/13/2019 DEXAMETHASONE SODIUM PHOS CPT-4: J1100 01/13/2019 ROUTINE VENIPUNCTURE CPT-4: 39241 09/04/2018 COMPREHEN METABOLIC PANEL CPT-4: 88859 09/04/2018 COMPLETE CBC W/AUTO DIFF WBC CPT-4: 22778 09/04/2018 LIPID PANEL CPT-4: 67403 09/04/2018 ASSAY OF PSA TOTAL CPT-4: 23391 09/04/2018 ASSAY THYROID STIM HORMONE CPT-4: 23626 09/04/2018 URINALYSIS NONAUTO W/O SCOPE CPT-4: 51033 05/15/2018 ROUTINE VENIPUNCTURE CPT-4: 62677 11/16/2017 A FRT/VG P CPT-4: 4606482 11/16/2017 A FOOD C P CPT-4: 2159416 11/16/2017 A NUTS PNL CPT-4: 2898743 11/16/2017 THER/PROPH/DIAG INJ SC/IM CPT-4: 88532 11/06/2017 TRIAMCINOLONE ACET INJ NOS CPT-4: J3301 11/06/2017 DEXAMETHASONE SODIUM PHOS CPT-4: J1100 11/06/2017 ROUTINE VENIPUNCTURE CPT-4: 30480 09/03/2017 ASSAY OF FREE THYROXINE CPT-4: 61417 09/03/2017 ASSAY THYROID STIM HORMONE CPT-4: 39552 09/03/2017 ASSAY TRIIODOTHYRONINE (T3) CPT-4: 11061 09/03/2017 ROUTINE VENIPUNCTURE CPT-4: 55104 07/31/2017 COMPREHEN METABOLIC PANEL CPT-4: 37622 07/31/2017 COMPLETE CBC W/AUTO DIFF WBC CPT-4: 64993 07/31/2017 LIPID PANEL CPT-4: 29543 07/31/2017 FLU VACC PRSV FREE INC ANTIG 65 AND OLDER CPT-4: 46858 07/04/2017 ADMIN INFLUENZA VIRUS VAC CPT-4: G0008 07/04/2017 ROUTINE VENIPUNCTURE CPT-4: 45860 02/26/2017 ASSAY THYROID STIM HORMONE CPT-4: 61632 02/26/2017 COMPREHEN METABOLIC PANEL CPT-4: 78995 02/26/2017 COMPLETE CBC W/AUTO DIFF WBC CPT-4: 40925 02/26/2017 LIPID PANEL CPT-4: 37625 02/26/2017 ASSAY OF PSA TOTAL CPT-4: 60774 02/26/2017 FLUZONE, 5ML (Medicare) CPT-4: Q2038 06/28/2016 ADMIN INFLUENZA VIRUS VAC CPT-4: G0008 06/28/2016 ROUTINE VENIPUNCTURE CPT-4: 40643 05/19/2016 ASSAY OF FREE THYROXINE CPT-4: 77098 05/19/2016 ASSAY THYROID STIM HORMONE CPT-4: 60471 05/19/2016 COMPREHEN METABOLIC PANEL CPT-4: 90597 05/19/2016 COMPLETE CBC W/AUTO DIFF WBC CPT-4: 06781 05/19/2016 LIPID PANEL CPT-4: 14187 05/19/2016 VITAMIN B-12 CPT-4: 25738 05/19/2016 PPPS, initial visit CPT-4: G0438 05/10/2016 ROUTINE VENIPUNCTURE CPT-4: 79809 04/05/2015 ASSAY THYROID STIM HORMONE CPT-4: 47496 04/05/2015 COMPREHEN METABOLIC PANEL CPT-4: 65822 04/05/2015 COMPLETE CBC W/AUTO DIFF WBC CPT-4: 27853 04/05/2015 LIPID PANEL CPT-4: 30610 04/05/2015 ASSAY OF PSA TOTAL CPT-4: 63983 04/05/2015 ROUTINE VENIPUNCTURE CPT-4: 02318 07/19/2012 COMPREHEN METABOLIC PANEL CPT-4: 31902 07/19/2012 LIPID PANEL CPT-4: 13337 07/19/2012 ELECTROCARDIOGRAM COMPLETE CPT-4: 75704 03/22/2012 Vital Signs Date Vital 09/24/2019 Blood Pressure 1: 125/72 Code: 8480-6 BMI: 19.8 Code: 27702-9 Heart Rate 1: 88 bpm Height: 5'11" [...] 1: 102/60 Code: 8480-6 BMI: 19.1 Code: 10744-4 Heart Rate 1: 82 bpm Height: 5'11" Respiratory Rate: 22 bpm SpO2: 97% Tempera ture: 36.4 (C) / 97.6 (F) Weight: 137 lbs 04/25/2018 Blood Pressure 1: 118/64 Code: 8480-6 BMI: 19.2 Code: 32993-7 Heart Rate 1: 98 bpm Height: 5'11" Respiratory Rate: 20 bpm SpO2: 99% Tempera ture: 36.4 (C) / 97.6 (F) Weight: 138 lbs 11/06/2017 Blood Pressure 1: 108/68 Code: 8480-6 BMI: 18.5 Code: 23511-6 Heart Rate 1: 68 bpm Height: 5'11" Respiratory Rate: 20 bpm SpO2: 96% Tempera ture: 36.8 (C) / 98.2 (F) Weight: 133 lbs 09/03/2017 Blood Pressure 1: 122/64 Code: 8480-6 BMI: 17.6 Code: 47167-6 Heart Rate 1: 90 bpm Height: 5'11" Respiratory Rate: 20 bpm SpO2: 98% Tempera ture: 36.4 (C) / 97.6 (F) Weight: 126 lbs 08/21/2017 Blood Pressure 1: 114/80 Code: 8480-6 BMI: 17.9 Code: 28360-3 Heart Rate 1: 80 bpm Height: 5'11" Respiratory Rate: 20 bpm SpO2: 95% Tempera ture: 36.6 (C) / 97.9 (F) Weight: 128 lbs 02/13/2017 Blood Pressure 1: 122/60 Code: 8480-6 BMI: 18.5 Code: 86012-0 Heart Rate 1: 76 bpm Height: 5'11" Respiratory Rate: 20 bpm SpO2: 96% Tempera ture: 36.9 (C) / 98.4 (F) Weight: 133 lbs 11/23/2016 Blood Pressure 1: 126/70 Code: 8480-6 BMI: 18.5 Code: 86521-8 Heart Rate 1: 100 bpm Height: 5'11" Respiratory Rate: 20 bpm SpO2: 96% Tempera ture: 37.1 (C) / 98.8 (F) Weight: 133 lbs 05/23/2016 Blood Pressure 1: 128/82 Code: 8480-6 BMI: 18.5 Code: 13346-1 Heart Rate 1: 88 bpm Height: 5'11" Respiratory Rate: 20 bpm Temperature: 36 .7 (C) / 98.0 (F) Weight: 133 lbs 05/10/2016 Blood Pressure 1: 146/70 Code: 8480-6 BMI: 18.5 Code: 75797-7 Heart Rate 1: 84 bpm Height: 5'11" Respiratory Rate: 20 bpm Temperature: 36 .7 (C) / 98.1 (F) Weight: 133 lbs 04/01/2015 Blood Pressure 1: 102/60 Code: 8480-6 BMI: 18.5 Code: 64824-7 Heart Rate 1: 64 bpm Height: 5'11" Respiratory Rate: 20 bpm Temperature: 36 .8 (C) / 98.2 (F) Weight: 133 lbs 01/13/2014 Blood Pressure 1: 124/78 Code: 8480-6 BMI: 19.8 Code: 31197-1 Heart Rate 1: 76 bpm Height: 5'11" Respiratory Rate: 20 bpm Temperature: 36 .8 (C) / 98.2 (F) Weight: 142 lbs 04/03/2012 Blood Pressure 1: 106/76 Code: 8480-6 BMI: 20.9 Code: 93101-7 Heart Rate 1: 84 bpm Height: 5'11" Respiratory Rate: 20 bpm Temperature: 36 .7 (C) / 98.0 (F) Weight: 150 lbs 12/20/2011 Blood Pressure 1: 116/60 Code: 8480-6 BMI: 20.1 Code: 67786-6 Heart Rate 1: 80 bpm Height: 5'11" Respiratory Rate: 20 bpm Temperature: 36 .4 (C) / 97.6 (F) Weight: 144 lbs 10/24/2011 Blood Pressure 1: 132/74 Code: 8480-6 BMI: 19.7 Code: 83936-9 Heart Rate 1: 96 bpm Height: 5'11" [...] 04/05/2015 follow up 04/01/2015 follow up 01/13/2014 [facility] November 2012 lab draw 07/19/2012 follow up 04/03/2012 S/P stent placement in LAD, changed effient to plavix hip pain 12/20/2011 dyskinesia or tremor 10/24/2011 follow up 03/13/2011 started on effient, zocor, and atenolol follow up 02/20/2011 [facility]/Dr Christian rojas follow up 02/23/2010 [facility], appt with Dr Bajwa 03/22/10 insomnia 01/12/2010 problems falling and staying asleep, takes nortriptyline Encounters Encounter Performer Location Codes Date () NURSE/OUTPATIENT VISIT EST Diagnosis: Essential (primary) hypertension[ICD10: I10] Diagnosis: Mixed hyperlipidemia[ICD10: E78.2] Diagnosis: Encounter for screening for malignant neoplasm of prostate[ICD10: Z12.5] Vonnie MATHEWS [employer] CPT-4: 38080 09/30/2019 ([id number]) OFFICE/OUTPATIENT VISIT EST Diagnosis: Encounter for therapeutic drug level monitoring[ICD10: Z51.81] Diagnosis: Essential tremor[ICD10: G25.0] Verna Ramirez VONNIE MATHEWS [employer] CPT-4: 64330 09/24/2019 ([id number]) OFFICE/OUTPATIENT VISIT EST Diagnosis: Noninfective gastroenteritis and colitis, unspecified[ICD10: K52.9] Diagnosis: Hemorrhage of anus and rectum[ICD10: K62.5] Vonnie MATHEWS [employer] CPT-4: 92546 05/26/2019 ([id number]) OFFICE/OUTPATIENT VISIT EST Diagnosis: Other intervertebral disc degeneration, 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] Diagnosis: Other forms of dyspnea[ICD10: R06.09] Vonnie MATHEWS [employer] [facility] CPT-4: 97238 03/17/2019 OFFICE/OUTPATIENT VISIT EST Diagnosis: Other intervertebral disc degeneration, 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] Diagnosis: Other symptoms and signs involving the musculoskeletal system[ICD10: R29.898] Vonnie MATHEWS DO [facility] CPT-4: 39361 02/18/2019 ([id number]) OFFICE/OUTPATIENT VISIT EST Diagnosis: Other allergic rhinitis[ICD10: J30.89] Akilah MATHEWS [employer] [facility] CPT-4: 14940 01/13/2019 ([id number]) NURSE/OUTPATIENT VISIT EST Diagnosis: Mixed hyperlipidemia[ICD10: E78.2] Diagnosis: Essential (primary) hypertension[ICD10: I10] Diagnosis: Encounter for screening for malignant neoplasm of prostate[ICD10: Z12.5] Diagnosis: Encounter for general adult medical examination with abnormal findings[ICD10: Z00.01] Diagnosis: Benign prostatic hyperplasia without lower urinary tract symptoms[ICD10: N40.0] Vonnie MATHEWS [employer] [facility] CPT-4: 93914 09/04/2018 ([id number]) OFFICE/OUTPATIENT VISIT EST Diagnosis: Otorrhea, left ear[ICD10: H92.12] Diagnosis: Impacted cerumen, right ear[ICD10: H61.21] Verna MATHEWS [employer] [facility] CPT-4: 49592 09/03/2018 ([id number]) OFFICE/OUTPATIENT VISIT EST Diagnosis: Other intervertebral disc degeneration, 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] Diagnosis: Primary insomnia[ICD10: F51.01] Diagnosis: Essential tremor[ICD10: G25.0] Vonnie MATHEWS [employer] [facility] CPT-4: 56858 08/26/2018 ([id number]) OFFICE/OUTPATIENT VISIT EST Diagnosis: Pelvic and perineal pain[ICD10: R10.2] Verna MATHEWS [employer] [facility] CPT-4: 92630 05/15/2018 ([id number]) OFFICE/OUTPATIENT VISIT EST Diagnosis: Encounter for therapeutic drug level monitoring[ICD10: Z51.81] Diagnosis: Acute sinusitis, unspecified[ICD10: J01.90] Diagnosis: Other intervertebral disc degeneration, 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] Diagnosis: Essential tremor[ICD10: G25.0] Diagnosis: Raynaud's syndrome without gangrene[ICD10: I73.00] Verna MATHEWS [employer] [facility] CPT-4: 07115 04/25/2018 ([id number]) OFFICE/OUTPATIENT VISIT EST Diagnosis: Idiopathic urticaria[ICD10: L50.1] Diagnosis: Other urticaria[ICD10: L50.8] Vonniefabricio COLMENARES Denia MATHEWS [employer] [facility] CPT-4: 25344 11/16/2017 ([id number]) OFFICE/OUTPATIENT VISIT EST Diagnosis: Idiopathic urticaria[ICD10: L50.1] Diagnosis: Other urticaria[ICD10: L50.8] Diagnosis: Other forms of dyspnea[ICD10: R06.09] Vonnie RODGERS Denia BOWMAN [employer] [facility] CPT-4: 28001 11/06/2017 ([id number]) OFFICE/OUTPATIENT VISIT EST Diagnosis: Dyspnea, unspecified[ICD10: R06.00] Diagnosis: Abnormal weight loss[ICD10: R63.4] Vonnie DOUGLASS REA [employer] [facility] CPT-4: 76423 09/03/2017 ([id number]) OFFICE/OUTPATIENT VISIT EST 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] Diagnosis: Mixed hyperlipidemia[ICD10: E78.2] Diagnosis: Essential tremor[ICD10: G25.0] Diagnosis: Essential (primary) hypertension[ICD10: I10] Diagnosis: Abnormal weight loss[ICD10: R63.4] Vonnie LUCIA [employer] [facility] CPT-4: 16652 08/21/2017 ([id number]) OFFICE/OUTPATIENT VISIT EST Diagnosis: Mixed hyperlipidemia[ICD10: E78.2] Diagnosis: Essential (primary) hypertension[ICD10: I10] 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] Diagnosis: Anemia, unspecified[ICD10: D64.9] Vonnie MATHEWS DO [facility] CPT-4: 35878 07/31/2017 ([id number]) OFFICE/OUTPATIENT VISIT EST Diagnosis: FLU VACCINE[ICD10: Z23] Vonnie GERMAN DO [facility] CPT-4: 45259 07/04/2017 ([id number]) OFFICE/OUTPATIENT VISIT EST Diagnosis: Mixed hyperlipidemia[ICD10: E78.2] Diagnosis: Essential tremor[ICD10: G25.0] 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] Diagnosis: Essential (primary) hypertension[ICD10: I10] Diagnosis: Supraventricular tachycardia[ICD10: I47.1] Diagnosis: Other fatigue[ICD10: R53.83] Diagnosis: Encounter for screening for malignant neoplasm of prostate[ICD10: Z12.5] Vonnie MATHEWS DO [facility] CPT-4: 64677 02/26/2017 ([id number]) OFFICE/OUTPATIENT VISIT EST Diagnosis: Essential tremor[ICD10: G25.0] Vonnie MATHEWS DO [facility] CPT-4: 11994 02/13/2017 ([id number]) OFFICE/OUTPATIENT VISIT EST Diagnosis: Essential tremor[ICD10: G25.0] Diagnosis: Other intervertebral disc degeneration, 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] Vonnie MATHEWS DO [facility] CPT-4: 94871 11/23/2016 ([id number]) OFFICE/OUTPATIENT VISIT EST Diagnosis: FLU VACCINE[ICD10: Z23] Vonnie GERMAN DO [facility] CPT-4: 28690 06/28/2016 OFFICE/OUTPATIENT VISIT EST Diagnosis: Open bite of right hand, initial encounter[ICD10: S61.451A] Vonnie MATHEWS DO [facility] CPT-4: 29702 05/23/2016 ([id number]) OFFICE/OUTPATIENT VISIT EST Diagnosis: Encounter for general adult medical examination with abnormal findings[ICD10: Z00.01] Diagnosis: Mixed hyperlipidemia[ICD10: E78.2] Diagnosis: Essential tremor[ICD10: G25.0] 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] Vonnie BOWMAN [employer] [facility] CPT-4: 21983 05/19/2016 ([id number]) OFFICE/OUTPATIENT VISIT EST Diagnosis: HYPERLIPIDEMIA NEC/NOS[ICD9: 272.4] Diagnosis: CAD[ICD9: 414.00] Diagnosis: TACHYCARDIA[ICD9: 785.0] Diagnosis: HYPERTENSION[ICD9: 401.9] Diagnosis: Routine medical exam[ICD9: V70.0] Vonnie BOWMAN [employer] CPT-4: 67970 04/05/2015 ([id number]) OFFICE/OUTPATIENT VISIT EST Diagnosis: HYPERTENSION[ICD9: 401.9] Diagnosis: HYPERLIPIDEMIA NEC/NOS[ICD9: 272.4] Diagnosis: CAD[ICD9: 414.00] Diagnosis: LUMB/LUMBOSAC DISC DEGEN[ICD9: 722.52] Vonnie Romuloalyssaranjan DOLLY GASPAR Denia BOWMAN [employer] CPT-4: 47098 04/01/2015 ([id number]) OFFICE/OUTPATIENT VISIT EST Diagnosis: CHEST PAIN NOS[ICD9: 786.50] Diagnosis: PAIN IN THORACIC SPINE[ICD9: 724.1] Diagnosis: HYPERTENSION[ICD9: 401.9] Diagnosis: GERD[ICD9: 530.81] Vonnie MATHEWS [employer] CPT-4: 76255 01/13/2014 ([id number]) OFFICE/OUTPATIENT VISIT EST Diagnosis: CAD[ICD9: 414.00] Diagnosis: HYPERLIPIDEMIA NEC/NOS[ICD9: 272.4] Vonnie Romulojuan miguel ANNA Denia MATHEWS [employer] CPT-4: 94992 07/19/2012 ([id number]) OFFICE/OUTPATIENT VISIT EST Diagnosis: CAD[ICD9: 414.00] Diagnosis: INSOMNIA NOS[ICD9: 780.52] Vonnie Romulojuan miguel COLMENARES Denia DYEER [employer] CPT-4: 57225 04/03/2012 ([id number]) OFFICE/OUTPATIENT VISIT EST Diagnosis: CHEST PAIN NOS[ICD9: 786.50] Diagnosis: CAD[ICD9: 414.00] Vonnie COLMENARES S. ORENDER DO [facility] CPT-4: 26319 03/22/2012 ([id number]) OFFICE/OUTPATIENT VISIT EST Diagnosis: PROSTATITIS[ICD9: 601.9] Diagnosis: TREMOR NEC[ICD9: 333.1] Vonnie COLMENARES S. OREND ER DO [facility] CPT-4: 02474 12/20/2011 OFFICE/OUTPATIENT VISIT EST Diagnosis: TREMOR NEC[ICD9: 333.1] Diagnosis: TACHYCARDIA[ICD9: 785.0] Diagnosis: HYPERTENSION[ICD9: 401.9] Vonnie COLMENARES S. ORE NDER DO [facility] CPT-4: 78167 10/24/2011 OFFICE/OUTPATIENT VISIT EST Vonnie COLMENARES S. ROMULO NDER DO [facility] CPT- 4: 68978 03/13/2011 ([id number]) OFFICE/OUTPATIENT VISIT EST Vonnie GASPAR SKim ORENDER DO [facility] CPT-4: 95478 02/20/2011 ([id number]) OFFICE/OUTPATIENT VISIT, EST Vonnie NELSON S. ORENDER DO [facility] CPT-4: 44806 02/23/2010 ([id number]) OFFICE/OUTPATIENT VISIT, EST Vonnie NELSON S. ORENDER DO [facility] CPT-4: 85312 01/12/2010 Plan of Care Planned Activity Notes Codes Status Date Appointment: [facility] [facility] 09/25/2019 Visit Diagnosis Plan: Essential tremor Discussion: sta ble on clonazepam. educated patient about purchasing a large, heavy pen that will allow him to improve his writing. instructed him that pens can be purchased on [employer]. ICD-9 : 333.1 ICD-10 : G25.0 09/24/2019 Visit Diagnosis Plan: Encounter for therapeutic drug l evel monitoring Discussion: UDS and contract completed today. ICD-9 : V58.83 ICD-10 : Z51.81 09/24/2019 Appointment: [facility] [facility] MEDICATION REVIEW 09/24/2019 Visit Diagnosis Plan: Noninfective gastroenteritis and colitis, unspecified Discussion: Kathrin duron Update colonoscopy ICD-9 : 558.9 ICD-10 : K52.9 05/26/2019 Visit Diagnosis Plan: Hemorrhage of anus and rectum Di scussion: Update colonoscopy ICD-9 : 569.3 ICD-10 : K62.5 05/26/2019 Appointment: Vonnie Mathewstel: [address] [place], [place] [phone] [place] record request faxed 05/23; LM with medical records 05/26/19 Hospital Follow Up 05/26/2019 Care Plan: Referral Order SNOMED-CT : 30 [id number] Pending 05/26/2019 Visit Diagnosis Plan: Other intervertebral disc degene ration, lumbar region Discussion: Increase lyrica to 150mg po q HS Continue stretches from PT [facility] Fwup after that appointment ICD-9 : 722.52 ICD-10 : M51.36 03/17/2019 Appointment: Vonnie Mathews WPtel: [address] [place], [place] [phone] [place] FOLLOW UP 03/17/2019 Visit Diagnosis Plan: Other intervertebral disc degene ration, lumbar region Discussion: Start PT Referral for epidural Will start lyrica 75mg po q HS once CT scan results obtained [facility] Follow Up: 3 weeks ICD-9 : 722.52 [...] ICD-10 : R29.898 02/18/2019 Appointment: Vonnie Mathewstel: [address] [place], [place] [phone] [place] FOLLOW UP 02/18/2019 Appointment: Vonnie Mathewstel: [address] [place], [place] [phone] [place] CANCELED 02/18/2019 Visit Diagnosis Plan: Other [...] : J30.89 01/13/2019 Appointment: Akilah Lopez [address] [address] [place] Due for annual wellness ACUTE ILLNESS 01/14/20 Appointment: Vonnie Mathews WPtel: [phone] [address] [place] LAB 09/04/2018 Visit Diagnosis Plan: Impacted [...] : H92.12 09/03/2018 Appointment: Verna Ramirez [address] ACUTE ILLNESS 09/03/2018 Visit Diagnosis Plan: [...] : M51.36 08/26/2018 Appointment: Vonnie Mathews WPtel: [facility] [address] [place] FOLLOW UP 08/26/2018 Visit Diagnosis Plan: [...] ICD-10 : R10.2 05/15/2018 Appointment: Verna Ramirez [address] [place], [place] [address] ACUTE ILLNESS 05/15/2018 Patient Education: Patient Medication Summary Completed 05/15/2018 Care Plan: US EXAM PELVIC COMPLETE scrotal LOINC : 57292-0 Pending 05/15/2018 Visit Diagnosis Plan: Other intervertebral [...] : I73.00 04/25/2018 Appointment: Verna Ramirez 504 [facility] MEDICATION REVIEW 04/25/2018 Patient Education: Patient Medication Summary Completed 04/25/2018 Appointment: Vonnie Mathews WPtel: [address] [place], [place] [phone] 11/16/2017 Patient Education: Patient Medication Summary Completed [...] : L50.1 11/06/2017 Appointment: Vonnie Mathews WPtel: [address] [place], [place] [phone] FOLLOW UP 11/06/2017 Patient Education: Patient Medication [...] : R63.4 09/03/2017 Appointment: Vonnie Mathews WPtel: [address] [place], [place] [phone] FOLLOW UP 09/03/2017 Patient Education: Patient Medication [...] Diagnosis Plan: Atherosclerotic he art disease of stebbins coronary artery without angina pectoris Discussion: Sees Cardiology in 2 days To ER if CP returns before ICD-9 : 414.00 ICD-10 : I25.10 08/21/2017 Appointment: Vonnie Mathews WPtel: [phone] [place], [place] [phone] [place] FOLLOW UP 08/21/2017 Patient Education: Patient Medication Summary Completed 08/21/2017 Appointment: Vonnie Mathews WPtel: [address] [place], [place] [phone] [place] LAB 07/31/2017 Patient Education: Patient Medication Summary Completed 07/31/2017 Appointment: Vonnie Mathews WPtel: [address] [place], [place] [phone] US INJECTION 07/04/2017 Patient Education: Patient Medication Summary Completed 07/04/2017 Appointment: Vonnie Mathews WPtel: [address] [place], [place] [phone] [place] LAB 02/26/2017 Patient Education: Patient Medication Summary Completed 02/26/2017 Visit Diagnosis Plan: Essential tremor Discussion: Con tinue clonazepam at 1mg q AM and primidone 50mg q HS Follow Up: 3 months ICD-9 : 333.1 ICD-10 : G25.0 02/13/2017 Appointment: Vonnie Mathews WPtel: [address] [place], [place] [phone] [place] 02/08 confirmed~sl FOLLOW UP 02/13/2017 Patient Education: Patient Medication Summary Completed 02/13/2017 Appointment: Vonnie Mathews WPtel: [address] [place], [place] [id number] [place] RESCHEDULED 01/23/2017 Visit Diagnosis Plan: Other intervertebral disc degene ration, lumbar region Discussion: DC oxycodone Tramadol 50mg 1-2 po TID prn pain Follow Up: 2 months ICD-9 : 722.52 ICD-10 : M51.36 11/23/2016 Visit Diagnosis Plan: Essential tremor Discussion: Inc rease clonazepam to 1mg po BID Discussed sinemet ICD-9 : 333.1 ICD-10 : G25.0 11/23/2016 Appointment: Vonnie Mathews WPtel: [address] [place], [place] [phone] 11/22 confirmed~ MEDICATION REVIEW 11/23/2016 Patient Education: Patient Medication Summary Completed 11/23/2016 Patient Education: [facility] [employer] - Clonazepam - 18-64 - Dynamic Portal ID Completed 11/23/2016 Appointment: Vonnie Mathews WPtel: [address] [place], [place] [phone] INJECTION 06/28/2016 Patient Education: Patient Medication Summary Completed 06/28/2016 Referral: Fernando Day WPtel: #1 [facility]66[facility] [id number] per Maribeth, the patient is sched uled [...] worsening 05/23/2016 Appointment: Vonnie Mathews WPtel: [phone] [facility] ER Follow UP 05/23/2016 Patient Education: Patient Medication Summary Completed 05/23/2016 Appointment: Vonnie Mathews WPtel: [facility] LAB 05/19/2016 Patient Education: Patient Medication Summary Completed 05/19/2016 Visit Plan: Change coreg to 3.125mg BID Trial of low dose clonazepam 0.5mg BID for tremors Fwup with Dr. Ramsey as scheduled Return for fasting lab--CBC, CMP, TSH, free T4, Lipids, PSA, B12 Proceed with Colonoscopy 05/10/2016 Appointment: Vonnie Mathews WPtel: [phone] [facility] 05/09 confirmed~sl Annual Well Visit 05/10/2016 Patient Education: Patient Medication Summary Completed 05/10/2016 Care Plan: Referral Order SNOMED-CT : 30 [id number] Pending 05/10/2016 Appointment: Vonnie Mathews WPtel: [address] [place], [place] [phone] [place] Rescheduled for 05/10/16 at 2PM~lb RESCHEDULED 04/26/2016 Referral: Danilo Ramsey [facility] Referral Initiated 04/29/2015 Appointment: Vonnie Mathews WPtel: [address] [place], [place] [phone] LAB 04/05/2015 Patient Education: Patient Medication Summary Completed 04/05/2015 Visit Plan: Return in AM for fasting lab --CMP, lipids, CBC, TSH, PSA Change hydrocodone to oxycodone 7.5/325mg 1-2 po TID Schedule with cardiology Needs colonoscopy once cardiology evaluation complete Will need to restart chol meds after lab Recheck 1mo on pain meds 04/01/2015 Appointment: Vonnie Mathews WPtel: [address] [place], [place] [phone] 03/31 confirmed -mf PHYSICAL 04/01/2015 Patient Education: Patient Medication Summary Completed 04/01/2015 Appointment: Vonnie Mathewstel: [phone] [facility] Annual Well Visit 09/23/2014 Visit Plan: Continue protonix Pt has fwu p with Card next month Rec chiropracter or PT for ribs/thoracics being out and could be contributing to chest pain 01/13/2014 Appointment: Vonnie Mathews WPtel: [address] [place] [address] [place] FOLLOW UP 01/13/2014 Patient Education: Patient Medication Summary Completed 01/13/2014 Appointment: Ariella Mcnally WPtel: [address] [place] [address] US FOLLOW UP 12/12/2013 Appointment: Malika Cárdenas WPtel: [address] [place] [address] US PHYSICAL 12/12/2013 Appointment: Vonnie Mathews WPtel: [address] [place] [address] ACUTE ILLNESS 02/20/2013 Appointment: Vonnie Mathews WPtel: [address] [place] [address] LAB 07/19/2012 Patient Education: Patient Medication Summary Completed 07/19/2012 Appointment: Vonnie Mathews WPtel: [address] [place] [address] FOLLOW UP 04/03/2012 Patient Education: Patient Medication Summary Completed 04/03/2012 Appointment: Vonnie Mathews WPtel: [address] [place] [address] ACUTE ILLNESS 03/22/2012 Patient Education: Patient Medication Summary Completed 03/22/2012 Appointment: Vonnie Mathews WPtel: [address] [place] [address] US FOLLOW UP 12/26/2011 Visit Plan: Magy hayes eds 12/20/2011 Appointment: Vonnie Mathews WPtel: [address] [place] [address] ACUTE ILLNESS 12/20/2011 Patient Education: Patient Medication Summary Completed 12/20/2011 Visit Plan: Change neurontin to Cymbalta 30mg for 1wk then 60mg QD Add Propranolol for tremor 10/24/2011 Appointment: Vonnie Mathewstel: [address] [place] [address] ACUTE ILLNESS 10/24/2011 Appointment: Vonnie Mathews WPtel: [address] [place] [address] ACUTE ILLNESS 10/24/2011 Patient Education: Patient Medication Summary Completed 10/24/2011 Visit Plan: Continue current meds and fw up with Card as scheduled 03/13/2011 Appointment: Vonnie Mathews WPtel: [address] [place] [address] FOLLOW UP 03/13/2011 Patient Education: Patient Medication Summary Completed 03/13/2011 Visit Plan: Will obtain all records and lab from [place] Discussed will likely need heart cath which pt states that Card did talk to him about in the hospital 02/20/2011 Appointment: Vonnie Mathews WPtel: [address] [place] [address] ACUTE ILLNESS 02/20/2011 Patient Education: Patient Medication Summary Completed 02/20/2011 Visit Plan: Cont Pepcid and Prilosec See Card for cardiac cath. 02/23/2010 Appointment: Vonnie Mathews WPtel: [address] [place], [place] [phone] FOLLOW UP 02/23/2010 Patient Education: Patient Medication Summary Completed 02/23/2010 Visit Plan: Increase Pamelor to 75mg qhs Increase Hydrocodone to 10/325mg 1-2 po q6 prn 01/12/2010 Appointment: Vonnie Mathews WPtel: [address] [place] [address] ACUTE ILLNESS 01/12/2010 Patient Education: Patient Medication Summary Completed 01/12/2010 Referral: Iván Pardo WPtel: [facility] [address] [facility] 1 [id number] [place] Referral Initiated Referral: Fernando Day WPtel: #1 [facility] Girish [id number] [place] Referral Completed Referral: Fernando DayKim WPtel: #1 [facility] Girish [id number] [place] Referral Appointment Requested Instructions Comment . [...]
--- OUTSIDE RECORDS SUMMARY | 2020-02-10 08:25 | XMS REPORT | CCD ---
Author Author Nash Mathews D.O. 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 Name Role Phone Vonnie Mathews D.O., PP Unavailable CCM Unavailable Summary Purpose Interface Exchange Insurance Providers Payer name Policy type / Coverage type Covered green party ID Effective Begin Date Effective End Date WPS MEDICARE PART B [place] Medicare Part B [id number] 2018 Unknown Family History Family History data not found Social History Social History Element Codes Description Effective Dates Marital status Unknown 10/24/[address]: 922408464 Nonsmoker 03/29/2011 Allergies, Adverse Reactions, Alerts Substance [...] R63.4 08/21/2017 Active 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: [...] Fill Instructions clonazepam 1 mg tablet RxNorm: 289694 TAKE 1 TABLET BY MOUTH EV SUSAN AM 09/23/2019 10/22/2019 Active clonazepam 1 mg tablet RxNorm: 488364 TAKE 1 TABLET BY MOUTH EV SUSAN AM 08/21/2019 09/22/2019 Inactive Singulair 10 mg tablet RxNorm: 772328 TABLET(S) 1 TABLET(S) PO QD 1 10/11/2019 Active Flagyl 500 mg tablet RxNorm: 613620 1 Tablet(s) PO TID 05/26/2019 Inactive clonazepam 1 mg tablet RxNorm: 087186 TAKE 1 TABLET BY MOUTH EV SUSAN MORNING 05/23/2019 06/21/2019 Inactive pravastatin 20 mg tablet RxNorm: 347731 1 Tablet(s) PO QD 04/14/2019 10/10/2019 Active Needs updated fasting labs Singulair 10 mg tablet RxNorm: 981421 Tablet(s) 1 TABLET(S) PO QD 0 04/14/2019 07/12/2019 Inactive clonazepam 1 mg tablet RxNorm: 559434 1 Tablet(s) PO QAM 02/21/2019 0 05/23/2019 Inactive Bevespi Aerosphere 9 mcg-4.8 mcg HFA aerosol inhaler RxNorm: 6516357 2 Puff(s) INH BID 02/19/2019 No Stop Date Active ProAir HFA 90 mcg/actuation aerosol inhaler RxNorm: 845599 2 Puff(s) INH Q4H as needed 02/19/2019 09/24/2019 Inactive metoprolol tartrate 25 mg tablet RxNorm: 467682 1/2 Tablet(s) PO BI D 02/18/2019 05/18/2019 Inactive pravastatin 20 mg tablet RxNorm: 605352 1 Tablet(s) PO QD Needs updated fasting labs 01/13/2019 04/14/2019 Inactive Needs updated fa sting labs Singulair 10 mg tablet RxNorm: 221627 Tablet(s) 1 TABLET(S) PO QD 0 01/13/2019 04/12/2019 Inactive Plavix 75 mg tablet RxNorm: 174996 Tablet(s) 1 TABLET(S) PO QD 04/201906/20/2019 Inactive [SAVINGS FOR NON-COVERED SHANDA -- BIN:076057, PCN: ASPROD1, Group: XXXXX, ID# [id number], Questions: . THIS IS NOT INSURANCE.] Singulair 10 mg tablet RxNorm: 774091 1 TABLET(S) PO QD 10/29/2018 Inactive primidone 50 mg tablet RxNorm: 744330 2 TABLET(S) PO BI D TAKE 2 TABLETS BY MOUTH EVERY NIGHT AT BEDTIME 10/07/2018 01/12/2019 Inactive Patient requests 90 days supply pravastatin 20 mg tablet RxNorm: 030645 1 TABLET(S) PO QD 09/23/2018 01/12/2019 Inactive clonazepam 1 mg tablet RxNorm: 031120 1 Tablet(s) PO QAM 09/19/2018 0 12/17/2018 Inactive primidone 50 mg tablet RxNorm: 415451 TABLET(S) TAKE 2 TABLETS BY MOUTH EVERY NIGHT AT BEDTIME 09/18/2018 01/12/2019 Inactive ciprofloxacin 0.2 % ear drops in a dropperette RxNorm: 67977 6 2 Drop(s) left otic (ear) BID 09/03/2018 09/09/2018 Inactive primidone 50 mg tablet RxNorm: 579119 2 Tablet(s) PO BI D TAKE 2 TABLETS BY MOUTH EVERY NIGHT AT BEDTIME 08/26/2018 10/06/2018 Inactive Ambien 5 mg tablet RxNorm: 517257 TAKE 1 TABLET BY MOUTH EVERY NIGHT AT BEDTIME 08/05/2018 09/03/2018 Inactive Singulair 10 mg tablet RxNorm: 208753 1 TABLET(S) PO QD 07/23/2018 Inactive clonazepam 1 mg tablet RxNorm: 099853 TAKE 1 TABLET BY MOUTH EV SUSAN MORNING 07/23/2018 08/21/2018 Inactive Plavix 75 mg tablet RxNorm: 240883 1 TABLET(S) PO QD 07/04/201812/22 Inactive [SAVINGS FOR NON-COVERED DRUGS -- BIN:00 3585, PCN: ASPROD1, Group: XXXXX, ID# [id number], Questions: . THIS IS NOT INSURANCE.] clonazepam 1 mg tablet RxNorm: 660295 TAKE 1 TABLET BY MOUTH EV SUSAN MORNING 06/25/2018 07/23/2018 Inactive clonazepam 1 mg tablet RxNorm: 254030 TAKE 1 TABLET BY MOUTH EV SUSAN MORNING 05/23/2018 06/21/2018 Inactive primidone 50 mg tablet RxNorm: 497230 Tablet(s) TAKE 2 TABLETS BY MOUTH EVERY NIGHT AT BEDTIME 05/16/2018 08/25/2018 Inactive oxycodone-acetaminophen 7.5 mg-325 mg tablet RxNorm: 5478643 1-2 Tablet(s) PO TID as needed 04/25/2018 05/24/2018 Inactive Singulair 10 mg tablet RxNorm: 465974 1 Tablet(s) PO QD 04/25/2018 Inactive Medrol (Jose) 4 mg tablets in a dose pack RxNorm: 129350 Tablet(s) PO take as directed 04/25/2018 09/02/2018 Inactive clonazepam 1 mg tablet RxNorm: 810449 TAKE 1 TABLET BY MOUTH EV SUSAN MORNING 04/24/2018 05/22/2018 Inactive Plavix 75 mg tablet RxNorm: 140157 1 TABLET(S) PO QD 04/04/201807/02 Inactive [SAVINGS FOR NON-COVERED DRUGS -- BIN:00 3583, PCN: ASPROD1, Group: XXXXX, ID# [id number], Questions: . THIS IS NOT INSURANCE.] pravastatin 20 mg tablet RxNorm: 057776 1 Tablet(s) PO QD 03/21/2018 09/16/2018 Inactive ProAir HFA 90 mcg/actuation aerosol inhaler RxNorm: 196978 2 Puff(s) INH Q4H as needed 03/18/2018 03/17/2018 Inactive tamsulosin 0.4 mg capsule RxNorm: 741544 1 CAPSULE(S) PO QD 018 01/12/2019 Inactive clonazepam 1 mg tablet RxNorm: 010826 1 Tablet(s) PO QAM 02/25/2018 0 04/25/2018 Inactive tamsulosin 0.4 mg capsule RxNorm: 653186 1 Capsule(s) PO QD 018 03/13/2018 Inactive tamsulosin 0.4 mg capsule RxNorm: 062129 1 Capsule(s) PO QD 018 02/03/2018 Inactive tamsulosin 0.4 mg capsule RxNorm: 878578 1 Capsule(s) PO QD 018 02/12/2018 Inactive Ambien 5 mg tablet RxNorm: 765509 Tablet(s) TAKE 1 TAB LET BY MOUTH EVERY NIGHT AT BEDTIME 01/24/2018 08/05/2018 Inactive primidone 50 mg tablet RxNorm: 455564 Tablet(s) TAKE 2 TABLETS BY MOUTH EVERY NIGHT AT BEDTIME 01/18/2018 05/16/2018 Inactive cyclobenzaprine 10 mg tablet RxNorm: 196478 1 Tablet(s) PO TID as needed for muscle spasm 01/11/2018 02/09/2018 Inactive [SAVINGS FOR NON -COVERED DRUGS -- BIN:400049, PCN: ASPROD1, Group: XXXXX, ID# [id number], Questions: . THIS IS NOT INSURANCE.] clonazepam 1 mg tablet RxNorm: 082260 1 Tablet(s) PO QAM 12/24/2017 0 02/21/2018 Inactive prednisone 20 mg tablet RxNorm: 928887 1 Tablet(s) PO QD 11/06/2017 0 11/10/2017 Inactive EpiPen 2-Jose 0.3 mg/0.3 mL injection, auto-injector RxNorm: 369066 1 Unit Dose IM as needed 11/06/2017 09/24/2019 Inactive ProAir HFA 90 mcg/actuation aerosol inhaler RxNorm: 087466 2 Puff(s) INH Q4H as needed 10/30/2017 03/17/2018 Inactive primidone 50 mg tablet RxNorm: 515535 TAKE 2 TABLETS BY MOUTH EVERY NIGHT AT BEDTIME 10/15/2017 01/17/2018 Inactive Plavix 75 mg tablet RxNorm: 127642 1 Tablet(s) PO QD 10/01/201703/29 Inactive [SAVINGS FOR NON-COVERED DRUGS -- BIN:00 3585, PCN: ASPROD1, Group: XXXXX, ID# [id number], Questions: . THIS IS NOT INSURANCE.] clonazepam 1 mg tablet RxNorm: 040340 1 Tablet(s) PO QAM 09/19/2017 0 12/16/2017 Inactive primidone 50 mg tablet RxNorm: 729712 2 Tablet(s) PO QHS 08/29/2017 0 01/18/2018 Inactive oxycodone-acetaminophen 7.5 mg-325 mg tablet RxNorm: 8377436 1-2 Tablet(s) PO TID as needed 08/22/2017 09/19/2017 Inactive pravastatin 20 mg tablet RxNorm: 848257 1 Tablet(s) PO QD 08/21/2017 03/21/2018 Inactive carvedilol 3.125 mg tablet RxNorm: 997868 1 Tablet(s) P O BID to replace 6.25mg dose 08/21/2017 09/02/2017 Inactive primidone 50 mg tablet RxNorm: 306927 TAKE 2 TABLETS BY MOUTH EVERY NIGHT AT BEDTIME 06/18/2017 08/28/2017 Inactive clonazepam 1 mg tablet RxNorm: 105248 1 Tablet(s) PO QAM 06/04/2017 1 11/02/2016 Inactive Plavix 75 mg tablet RxNorm: 320054 1 Tablet(s) PO QD 04/10/201710/01 Inactive [SAVINGS FOR NON-COVERED DRUGS -- BIN:00 3585, PCN: ASPROD1, Group: XXXXX, ID# [id number], Questions: . THIS IS NOT INSURANCE.] pravastatin 20 mg tablet RxNorm: 803903 1 Tablet(s) PO QD 02/26/2017 08/24/2017 Inactive carvedilol 3.125 mg tablet RxNorm: 714517 1 Tablet(s) P O BID to replace 6.25mg dose 02/26/2017 08/21/2017 Inactive Ultram 50 mg tablet RxNorm: 330983 TAKE 1 TO 2 TABLETS BY MOUTH THREE TIMES DAILY NEEDED FOR PAIN 02/26/2017 03/07/2017 Inactive pravastatin 20 mg tablet RxNorm: 729472 1 Tablet(s) PO QD 02/26/2017 08/21/2017 Inactive carvedilol 3.125 mg tablet RxNorm: 758748 1 Tablet(s) P O BID to replace 6.25mg dose 02/26/2017 08/20/2017 Inactive clonazepam 0.5 mg tablet RxNorm: 575156 1 Tablet(s) PO QAM 02/14/20 17 02/13/2017 Inactive primidone 50 mg tablet RxNorm: 015098 1 Tablet(s) PO QHS 02/13/2017 0 05/01/2017 Inactive clonazepam 1 mg tablet RxNorm: 168579 1 Tablet(s) PO QAM 02/13/2017 0 05/13/2017 Inactive primidone 50 mg tablet RxNorm: 471962 1/2 Tablet(s) PO QD for 7 days then increase to 1 tablet at bedtime 01/09/2017 02/12/2017 Inactive pravastatin 20 mg tablet RxNorm: 774976 Tablet(s) 1 TABLET(S) PO QD 11/29/2016 02/25/2017 Inactive clonazepam 1 mg tablet RxNorm: 314207 1 Tablet(s) PO BID replac es 0.5mg dose 11/23/2016 01/08/2017 Inactive pravastatin 20 mg tablet RxNorm: 919157 1 TABLET(S) PO QD 11/17/2016 11/28/2016 Inactive Ambien 5 mg tablet RxNorm: 612299 TAKE 1 TABLET BY MOUTH EVERY NIGHT AT BEDTIME 11/17/2016 12/14/2016 Inactive clonazepam 0.5 mg tablet RxNorm: 440326 TAKE 1 TABLET BY MOUTH TWICE DAILY 11/17/2016 11/22/2016 Inactive Plavix 75 mg tablet RxNorm: 494958 1 Tablet(s) PO QD 11/06/201604/09 Inactive [SAVINGS FOR NON-COVERED DRUGS -- BIN:00 3585, PCN: ASPROD1, Group: XXXXX, ID# [id number], Questions: . THIS IS NOT INSURANCE.] Plavix 75 mg tablet RxNorm: 303145 1 Tablet(s) PO QD 08/28/201611/05 Inactive [SAVINGS FOR NON-COVERED DRUGS -- BIN: 3585, PCN: ASPROD1, Group: XXXXX, ID# [id number], Questions: . THIS IS NOT INSURANCE.] Lidoderm 5 % topical patch RxNorm: 4838479 Application T OP 2 patches for 12hrs then off for 12hrs 08/28/2016 08/27/2016 Inactive clonazepam 0.5 mg tablet RxNorm: 071591 1 Tablet(s) PO BID 08/07/20 16 11/22/2016 Inactive pravastatin 20 mg tablet RxNorm: 503929 1 Tablet(s) PO QD 08/07/2016 11/04/2016 Inactive cyclobenzaprine 10 mg tablet RxNorm: 314208 1 Tablet(s) PO TID as needed for muscle spasm 08/07/2016 09/05/2016 Inactive [SAVINGS FOR NON -COVERED DRUGS -- BIN:799288, PCN: ASPROD1, Group: XXXXX, ID# [id number], Questions: . THIS IS NOT INSURANCE.] Plavix 75 mg tablet RxNorm: 792009 1 Tablet(s) PO QD 08/07/201608/27 Inactive [SAVINGS FOR NON-COVERED DRUGS -- BIN:00 3585, PCN: ASPROD1, Group: XXXXX, ID# [id number], Questions: . THIS IS NOT INSURANCE.] carvedilol 3.125 mg tablet RxNorm: 023065 1 Tablet(s) P O BID to replace 6.25mg dose 08/07/2016 02/02/2017 Inactive clonazepam 0.5 mg tablet RxNorm: 206951 1 Tablet(s) PO BID 07/04/2008/07/2016 Inactive Plavix 75 mg tablet RxNorm: 444452 1 TABLET(S) PO QD 06/20/201608/06 Inactive [SAVINGS FOR NON-COVERED DRUGS -- BIN:00 3585, PCN: ASPROD1, Group: XXXXX, ID# [id number], Questions: . THIS IS NOT INSURANCE.] clonazepam 0.5 mg tablet RxNorm: 849235 1 Tablet(s) PO BID 06/09/20 16 07/03/2016 Inactive pravastatin 20 mg tablet RxNorm: 701475 1 Tablet(s) PO QD 05/23/2016 08/06/2016 Inactive pravastatin 20 mg tablet RxNorm: 464953 1 Tablet(s) PO QD 05/23/2016 05/22/2016 Inactive carvedilol 3.125 mg tablet RxNorm: 380602 1 Tablet(s) P O BID to replace 6.25mg dose 05/10/2016 08/06/2016 Inactive carvedilol 3.125 mg tablet RxNorm: 368374 1 Tablet(s) P O BID to replace 6.25mg dose 05/10/2016 05/09/2016 Inactive clonazepam 0.5 mg tablet RxNorm: 972695 1 Tablet(s) PO BID 05/10/20 16 06/08/2016 Inactive carvedilol 6.25 mg tablet RxNorm: 168455 1 Tablet(s) PO QD 05/10/20 16 05/10/2016 Inactive simvastatin 40 mg tablet RxNorm: 337234 1 TABLET(S) PO QD 04/10/2016 05/09/2016 Inactive Medrol (Jose) 4 mg tablets in a dose pack RxNorm: 520541 Tablet(s) PO As Directed 01/13/2016 05/09/2016 Inactive cyclobenzaprine 10 mg tablet RxNorm: 951162 1 TABLET(S) PO TID NEEDED FOR SPASM 01/11/2016 03/10/2016 Inactive [SAVINGS FOR NON -COVERED DRUGS -- BIN:052338, PCN: ASPROD1, Group: XXXXX, ID# [id number], Questions: . THIS IS NOT INSURANCE.] Plavix 75 mg tablet RxNorm: 796342 1 Tablet(s) PO QD 12/30/201506/19 Inactive [SAVINGS FOR NON-COVERED DRUGS -- BIN: 3585, PCN: ASPROD1, Group: XXXXX, ID# [id number], Questions: . THIS IS NOT INSURANCE.] Ambien 5 mg tablet RxNorm: 974443 TAKE 1 TABLET BY MOUTH EVERY DAY AT BEDTIME 11/15/2015 11/17/2016 Inactive simvastatin 40 mg tablet RxNorm: 989159 1 Tablet(s) PO QD 10/11/2015 01/12/2019 Inactive simvastatin 40 mg tablet RxNorm: 184947 1 Tablet(s) PO QD 10/08/2015 10/10/2015 Inactive Ambien 5 mg tablet RxNorm: 780741 TAKE 1 TABLET BY MOUTH EVERY NIGHT AT BEDTIME 07/27/2015 11/15/2015 Inactive Plavix 75 mg tablet RxNorm: 407666 1 Tablet(s) PO QD 06/28/201512/29 Inactive [SAVINGS FOR NON-COVERED DRUGS -- BIN: 3585, PCN: ASPROD1, Group: XXXXX, ID# [id number], Questions: . THIS IS NOT INSURANCE.] Coreg 6.25 mg tablet RxNorm: 698000 1 TABLET(S) PO BID 04/19/2015 Inactive [SAVINGS FOR NON-COVERED DRUGS -- BIN:00 3585, PCN: ASPROD1, Group: XXXXX, ID# [id number], Questions: . THIS IS NOT INSURANCE.] simvastatin 40 mg tablet RxNorm: 247129 1 Tablet(s) PO QD 04/05/2015 04/04/2015 Inactive simvastatin 40 mg tablet RxNorm: 389256 1 Tablet(s) PO QD 04/05/2015 10/11/2015 Inactive Plavix 75 mg tablet RxNorm: 268765 1 TABLET(S) PO QD 03/22/201504/20 Inactive [SAVINGS FOR NON-COVERED DRUGS -- BIN:00 3585, PCN: ASPROD1, Group: XXXXX, ID# [id number], Questions: . THIS IS NOT INSURANCE.] Plavix 75 mg tablet RxNorm: 073564 1 Tablet(s) PO QD 03/22/201506/28 Inactive [SAVINGS FOR NON-COVERED DRUGS -- BIN:00 3585, PCN: ASPROD1, Group: XXXXX, ID# [id number], Questions: . THIS IS NOT INSURANCE.] Ambien 5 mg tablet RxNorm: 248174 1 Tablet(s) PO QHS 12/17/201407/28 Inactive [SAVINGS FOR NON-COVERED DRUGS -- BIN:00 3585, PCN: ASPROD1, Group: XXXXX, ID# [id number], Questions: . THIS IS NOT INSURANCE.] Coreg 6.25 mg tablet RxNorm: 541544 1 Tablet(s) PO BID 12/17/2014 Inactive [SAVINGS FOR NON-COVERED DRUGS -- BIN:00 3585, PCN: ASPROD1, Group: XXXXX, ID# [id number], Questions: . THIS IS NOT INSURANCE.] Plavix 75 mg tablet RxNorm: 592158 1 Tablet(s) PO QD 12/17/201403/16 Inactive [SAVINGS FOR NON-COVERED DRUGS -- BIN:00 3585, PCN: ASPROD1, Group: XXXXX, ID# [id number], Questions: . THIS IS NOT INSURANCE.] cyclobenzaprine 10 mg tablet RxNorm: 863059 1 Tablet(s) PO TID as needed for spasm 12/17/2014 03/16/2015 Inactive [SAVINGS FOR NON -COVERED DRUGS -- BIN:346075, PCN: ASPROD1, Group: XXXXX, ID# [id number], Questions: . THIS IS NOT INSURANCE.] Coreg 6.25 mg tablet RxNorm: 241563 1 Tablet(s) PO BID 10/21/201409/2014 Inactive [SAVINGS FOR NON-COVERED DRUGS -- BIN:00 3585, PCN: ASPROD1, Group: XXXXX, ID# [id number], Questions: . THIS IS NOT INSURANCE.] Plavix 75 mg tablet RxNorm: 045982 1 Tablet(s) PO QD 10/21/201412/16 Inactive [SAVINGS FOR NON-COVERED DRUGS -- BIN:00 3585, PCN: ASPROD1, Group: XXXXX, ID# [id number], Questions: . THIS IS NOT INSURANCE.] Plavix 75 mg tablet RxNorm: 461974 1 Tablet(s) PO QD Ne eds routine check up--last seen March 2012 09/21/2014 10/20/2014 Inactive [SAVINGS FOR UNINSURED PATIENTS -- BIN:822192, PCN: ASPROD1, Group: AME08, ID# [id number], Process claim through [employer], for questions: . THIS IS NOT INSURANCE.] Ambien 5 mg tablet RxNorm: 650310 1 [facility] 09/21/201412/16 Inactive [SAVINGS FOR UNINSURED PATIENTS -- BIN:0 98344, PCN: ASPROD1, Group: AME08, ID# [id number], Process claim through [employer], for questions: . THIS IS NOT INSURANCE.] Coreg 6.25 mg tablet RxNorm: 229521 1 Tablet(s) PO BID 09/21/201411/2014 Inactive [SAVINGS FOR UNINSURED PATIENTS -- BIN:0 12487, PCN: ASPROD1, Group: AME08, ID# [id number], Process claim through [employer], for questions: . THIS IS NOT INSURANCE.] Plavix 75 mg tablet RxNorm: 982663 1 Tablet(s) PO QD Ne eds routine check up--last seen March 2012 08/04/2014 09/02/2014 Inactive [SAVINGS FOR UNINSURED PATIENTS -- BIN:645404, PCN: ASPROD1, Group: AME08, ID# [id number], Process claim through W[employer], for questions: . THIS IS NOT INSURANCE.] Plavix 75 mg tablet RxNorm: 957090 1 Tablet(s) PO QD Ne eds routine check up--last seen March 2012 08/03/2014 08/03/2014 Inactive Protonix 40 mg tablet,delayed release RxNorm: 750915 1 Tablet(s ) PO QD 06/08/2014 02/17/2019 Inactive [SAVINGS FOR UNINSUR ED PATIENTS -- BIN:868589, PCN: ASPROD1, Group: AME08, ID# [id number], Process claim through [employer], for questions: . THIS IS NOT INSURANCE.] hydrocodone 10 mg-acetaminophen 325 mg tablet RxNorm: 786472 1 Tablet(s) PO BID as needed for pain 02/18/2014 03/31/2015 Inactive Coreg 6.25 mg tablet RxNorm: 123115 1 Tablet(s) PO BID 02/02/2014 Inactive Protonix 40 mg granules delayed-release packet RxNorm: 664705 1 Tablet(s) PO QD 01/13/2014 06/08/2014 Inactive Plavix 75 mg tablet RxNorm: 187877 1 Tablet(s) PO QD Ne eds routine check up--last seen March 2012 01/13/2014 08/02/2014 Inactive Plavix 75 mg tablet RxNorm: 951665 1 Tablet(s) PO QD Ne eds routine check up--last seen March 2012 12/09/2013 01/07/2014 Inactive Coreg 6.25 mg tablet RxNorm: 426958 1 Tablet(s) PO BID 12/09/2013 Inactive Cymbalta 60 mg capsule,delayed release RxNorm: 427210 1 Capsule (s) PO QD 10/31/2013 01/12/2014 Inactive Coreg 6.25 mg tablet RxNorm: 237336 1 Tablet(s) PO BID 10/31/2013 Inactive Plavix 75 mg tablet RxNorm: 226368 1 Tablet(s) PO QD Ne eds routine check up--last seen March 2012 10/31/2013 11/29/2013 Inactive Coreg 6.25 mg tablet RxNorm: 398133 1 Tablet(s) PO BID 10/31/2013 Inactive atorvastatin 40 mg tablet RxNorm: 085935 1 Tablet(s) PO QD 10/31/19 14 03/31/2015 Inactive Plavix 75 mg tablet RxNorm: 773988 1 Tablet(s) PO QD Ne eds routine check up--last seen March 2012 09/23/2013 10/30/2013 Inactive cyclobenzaprine 10 mg tablet RxNorm: 745381 1 Tablet(s) PO TID as needed for spasm 09/23/2013 No Stop Date Active cyclobenzaprine 10 mg tablet RxNorm: 561505 1 Tablet(s) PO TID as needed for spasm 07/04/2013 09/22/2013 Inactive atorvastatin 40 mg tablet RxNorm: 713755 1 Tablet(s) PO QD 06/23/20 13 10/30/2013 Inactive atorvastatin 40 mg tablet RxNorm: 604588 1 Tablet(s) PO QD 04/22/20 13 06/22/2013 Inactive Nucynta 50 mg tablet RxNorm: 293341 1-2 Tablet(s) PO Q6H as nee ded for pain 01/01/2013 01/12/2014 Inactive Ambien 5 mg tablet RxNorm: 209331 1 Tablet(s) PO QHS 10/16/201201/13 Inactive Plavix 75 mg tablet RxNorm: 220961 1 Tablet(s) PO QD 09/19/201209/13 Inactive Protonix 40 mg tablet,delayed release RxNorm: 260757 1 Tablet(s ) PO QD 09/19/2012 09/18/2012 Inactive simvastatin 40 mg tablet RxNorm: 855976 1 Tablet(s) PO QD 09/19/2012 02/23/2013 Inactive Protonix 40 mg tablet,delayed release RxNorm: 934441 1 Tablet(s ) PO QD 09/19/2012 09/13/2013 Inactive Ultram 50 mg tablet RxNorm: 394278 1-2 Tablet(s) PO QID as need ed for pain 09/19/2012 02/26/2017 Inactive propranolol 80 mg tablet RxNorm: 416552 1 Tablet(s) PO QHS 09/19/19 13 09/18/2012 Inactive Cymbalta 60 mg capsule,delayed release RxNorm: 201266 1 Capsule (s) PO QD 09/19/2012 09/18/2012 Inactive Cymbalta 60 mg capsule,delayed release RxNorm: 610526 1 Capsule (s) PO QD 09/19/2012 03/17/2013 Inactive propranolol 80 mg tablet RxNorm: 783160 1 Tablet(s) PO QHS 09/19/19 13 02/23/2013 Inactive hydrocodone-acetaminophen 10 mg-325 mg tablet RxNorm: 163921 2 1-2 Tablet(s) PO QID 07/25/2012 02/23/2013 Inactive Ambien 10 mg tablet RxNorm: 520106 1 Tablet(s) PO QHS as needed for sleep 07/10/2012 01/27/2013 Inactive propranolol 80 mg tablet RxNorm: 892361 1 Tablet(s) PO QHS 05/13/20 12 09/18/2012 Inactive hydrocodone-acetaminophen 10 mg-325 mg tablet RxNorm: 828426 2 1-2 Tablet(s) PO QID 05/02/2012 No Stop Date Active Restoril 15 mg Cap RxNorm: 295087 1-2 Capsule(s) PO QHS 05/02/2012 Inactive propranolol 80 mg tablet RxNorm: 275592 1 Tablet(s) PO QHS 05/02/20 12 05/12/2012 Inactive Chantix Starting Month Box 0.5 mg (11)-1 mg (42) Tabs in a Dose Pack RxNorm: 835780 Tablet(s) PO As Directed 04/01/2012 01/27/2013 Inactive simvastatin 40 mg tablet RxNorm: 376062 1 Tablet(s) PO QD 03/28/2012 09/18/2012 Inactive simvastatin 40 mg Tab RxNorm: 624181 1 Tablet(s) PO QD 03/22/201207/2012 Inactive Effient 10 mg Tab RxNorm: 734540 1 Tablet(s) PO QD 03/22/2012 012 Inactive Prilosec 40 mg Capsule, delayed release RxNorm: 882145 1 Capsul e(s) PO QD 03/22/2012 09/18/2012 Inactive Prilosec 40 mg Capsule, delayed release RxNorm: 489565 1 Capsul e(s) PO QD 03/19/2012 03/21/2012 Inactive Cymbalta 60 mg capsule,delayed release RxNorm: 644506 1 Capsule (s) PO QD 03/04/2012 08/30/2012 Inactive hydrocodone-acetaminophen 10 mg-325 mg Tab RxNorm: 6333165 1-2 T ablet(s) PO QID 01/23/2012 No Stop Date Active Cymbalta 60 mg Capsule, delayed release RxNorm: 566805 1 Capsul e(s) PO QD 01/23/2012 03/03/2012 Inactive Cipro 500 mg Tab RxNorm: 417217 1 Tablet(s) PO BID 12/20/2011 012 Inactive Cymbalta 60 mg Capsule, delayed release RxNorm: 393715 1 Capsul e(s) PO QD 12/13/2011 01/22/2012 Inactive nortriptyline 75 mg Cap RxNorm: 202723 1 Capsule(s) PO QHS 11/29/1904/02/2012 Inactive Cymbalta 60 mg Cap RxNorm: 230495 1 Capsule(s) PO QD 10/24/201112/11 Inactive propranolol 80 mg Tab RxNorm: 161298 1 Tablet(s) PO QHS 10/24/2011 Inactive hydrocodone-acetaminophen 10 mg-325 mg Tab RxNorm: 5125224 1-2 T ablet(s) PO QID 09/29/2011 No Stop Date Active hydrocodone-acetaminophen 10 mg-325 mg Tab RxNorm: 9580195 1-2 T ablet(s) PO QID 07/25/2011 No Stop Date Active hydrocodone-acetaminophen 10 mg-325 mg Tab RxNorm: 5656233 1-2 T ablet(s) PO QID 02/14/2011 No Stop Date Active Prilosec 40 mg Cap RxNorm: 339246 1 Capsule(s) PO 01/03/2011 04/28/20 19 Inactive nortriptyline 75 mg Cap RxNorm: 310754 1 Capsule(s) PO QHS 01/04/20 11 07/01/2011 Inactive Neurontin 600 mg Tab RxNorm: 826585 1 Tablet(s) PO QHS 12/08/201011/2011 Inactive hydrocodone-acetaminophen 5 mg-500 mg Tab RxNorm: 561414 2 Tablet(s) PO Q4-6H prn 10/20/2010 01/08/2011 Inactive Diltzac ER 240 mg Cap RxNorm: 144771 1 Capsule(s) PO QD 07/14/2010 Inactive Nortriptyline 75 mg Cap RxNorm: 761903 1 Capsule(s) PO QHS 05/09/20 10 01/12/2019 Inactive Neurontin 600 mg Tab RxNorm: 452311 1 Tablet(s) PO QD 03/17/201012/17 Inactive Nortriptyline 75 mg Cap RxNorm: 287403 1 Capsule(s) PO 01/12/2010 Inactive Nortriptyline 50 mg Cap RxNorm: 123020 1 Capsule(s) PO QHS 01/13/20 10 01/11/2010 Inactive Diltzac ER 240 mg Cap RxNorm: 683110 1 Capsule(s) PO QD 12/06/2009 Inactive aspirin 81 mg Tab RxNorm: 797844 1 Tablet(s) PO QD No Start Date Active Vitamin D3 2,000 unit tablet RxNorm: 248285 1 Tablet(s) PO QD No Star t Date Active Lyrica 75 mg capsule RxNorm: 197552 1 Capsule(s) PO QHS No Start Date Active ljsglyxsp-itbotqnad-uydqow complex no.233 oral RxNorm: oral No Start Date Active primidone 50 mg tablet RxNorm: 619846 2 Tablet(s) PO BID No Start Date Active Prilosec 40 mg Capsule, delayed release RxNorm: 149840 1 Capsul e(s) PO QD No Start Date 03/18/2012 Inactive Prilosec 20 mg Cap RxNorm: 875596 1 Capsule(s) PO QHS No Start Date 0 01/02/2011 Inactive primidone 50 mg tablet RxNorm: 588648 1/2 Tablet(s) PO QHS for 1week then go full tab if needed No Start Date 05/01/2017 Inactive ProAir HFA 90 mcg/actuation aerosol inhaler RxNorm: 419647 2 Puff(s) INH Q4H as needed No Start Date 10/29/2017 Inactive clonazepam 0.5 mg tablet RxNorm: 504987 1/2 Tablet(s) PO BID No Sta rt Date 02/12/2017 Inactive Pepcid AC 10 mg Tab RxNorm: 291433 1 Tablet(s) PO QAM No Start Date 0 02/19/2011 Inactive Coreg Oral RxNorm: Oral No Start Date 01/12/2014 Inactive primidone 50 mg tablet RxNorm: 495804 1/2 Tablet(s) PO QD for 7 days then increase to 1 tablet at bedtime No Start Date 01/08/2017 Inactive Medrol (Jose) 4 mg tablets in a dose pack RxNorm: 009812 Tablet(s) PO As Directed No Start Date 01/12/2016 Inactive Plavix 75 mg tablet RxNorm: 012011 1 Tablet(s) PO QD No Start Date Inactive cyclobenzaprine 10 mg tablet RxNorm: 502564 1 Tablet(s) PO TID as needed for spasm No Start Date 07/03/2013 Inactive Bevespi Aerosphere 9 mcg-4.8 mcg HFA aerosol inhaler RxNorm: 2172104 2 Puff(s) INH BID No Start Date 02/18/2019 Inactive tramadol 50 mg tablet RxNorm: 961978 1-2 Tablet(s) PO TID as ne eded for pain No Start Date 01/12/2019 Inactive clonazepam 1 mg tablet RxNorm: 511315 1 Tablet(s) PO QAM No Start D ate 09/18/2018 Inactive hydrocodone-acetaminophen 5 mg-500 mg Tab RxNorm: 641613 2 Tablet(s) PO Q4-6H prn No Start Date 10/19/2010 Inactive lisinopril 20 mg Tab RxNorm: 028503 1/2 Tablet(s) PO QD No Start Da te 03/12/2011 Inactive Protonix 40 mg tablet,delayed release RxNorm: 711193 1 Tablet(s ) PO QD No Start Date 06/07/2014 Inactive Lipitor Oral RxNorm: Oral No Start Date 01/12/2014 Inactive primidone 50 mg tablet RxNorm: 988548 2 Tablet(s) PO QAM and 1 tablet at HS No Start Date 02/17/2019 Inactive hydrocodone-acetaminophen 10 mg-325 mg Tab RxNorm: 2996668 1-2 T ablet(s) PO QID No Start Date 02/13/2011 Inactive Ultram 50 mg tablet RxNorm: 940305 1-2 Tablet(s) PO QID as need ed for pain No Start Date 09/18/2012 Inactive Effient 10 mg Tab RxNorm: 202525 1 Tablet(s) PO QD No Start Date 01/2012 Inactive Bevespi Aerosphere 9 mcg-4.8 mcg HFA aerosol inhaler RxNorm: 2754438 2 Puff(s) INH BID No Start Date 10/29/2017 Inactive Neurontin Oral RxNorm: Oral No Start Date 01/12/2010 Inactive primidone 50 mg tablet RxNorm: 575830 1 Tablet(s) PO QD No Start Da te 01/12/2019 Inactive Chantix Starting Month Box 0.5 mg (11)-1 mg (42) Tabs in a Dose Pack RxNorm: 430503 Tablet(s) PO No Start Date 03/31/2012 Inactive atenolol 25 mg Tab RxNorm: 292815 1 Tablet(s) PO QD No Start Date 02/2012 Inactive Neurontin 600 mg Tab RxNorm: 232722 1 Tablet(s) PO QD No Start Date 0 03/16/2010 Inactive Nucynta 50 mg tablet RxNorm: 903814 1-2 Tablet(s) PO Q6H as nee ded for pain No Start Date 12/31/2012 Inactive simvastatin 40 mg Tab RxNorm: 072118 1 Tablet(s) PO QD No Start Date 03/21/2012 Inactive Medication Administered No Medication Administered data Immunizations Vaccine Codes Date Status Influenza CVX: 135 07/04/2017 Complete Results Observation Observation Code Item Item Code Result Date S [facility] Location COMPLETE BLOOD COUNT [id number] WBC 4.9 10e9/L 09/04/20 18 Unknown COMPLETE BLOOD COUNT [id number] RBC 4.42 10e12/L 2017 Unknown COMPLETE BLOOD COUNT [id number] HEMOGLOBIN 13.4 g/dL 09/04/20 18 Unknown COMPLETE BLOOD COUNT [id number] HEMATOCRIT 40.5 % 09/04/20 18 Unknown COMPLETE BLOOD COUNT [id number] MCV 91.6 fL 8 Unknown COMPLETE BLOOD COUNT 4188436 MCH 30.3 pg 8 Unknown COMPLETE BLOOD COUNT 5666019 MCHC 33.1 g/dL 8 Unknown COMPLETE BLOOD COUNT 1704607 PLATELET COUNT 224 10e9/L Unknown COMPLETE BLOOD COUNT 0102245 Mean Plt Volume 9.9 fL Unknown COMPLETE BLOOD COUNT 0760541 Neut Auto 60.8 % 8 Unknown COMPLETE BLOOD COUNT [id number] Lymph Auto 26.8 % 09/04/20 18 Unknown COMPLETE BLOOD COUNT 9501588 [place] Auto 10.4 % 8 Unknown COMPLETE BLOOD COUNT 6192876 RDW 12.8 % 8 Unknown COMPLETE BLOOD COUNT 7776703 Eos Auto 1.6 % 8 Unknown COMPLETE BLOOD COUNT 8971247 Baso Auto 0.4 % 8 Unknown COMPLETE BLOOD COUNT 1822512 Neutrophil Abs 2.98 10e9/L Unknown COMPLETE BLOOD COUNT 5327065 Lymphocyte Abs 1.31 10e9/L Unknown COMPLETE BLOOD COUNT [id number] Monocyte Abs 0.51 10e9/L 08/17 Unknown COMPLETE BLOOD COUNT [id number] Eosinophil Abs 0.08 10e9/L Unknown COMPLETE BLOOD COUNT [id number] RDW-SD 41.6 fL 8 Unknown COMPLETE BLOOD COUNT [id number] Basophil Abs 0.02 10e9/L 08/17 Unknown COMPREHENSIVE METABOLIC 96396 AST 16 U/L 2017 Unknown COMPREHENSIVE METABOLIC 41182 ALT 8 U/L 2017 Unknown COMPREHENSIVE METABOLIC 75340 BUN 12 mg/dL 2017 Unknown COMPREHENSIVE METABOLIC 78463 ALBUMIN 4.4 g/dL 2017 Unknown COMPREHENSIVE METABOLIC 20087 CHLORIDE 107 mmol/L 09/04 Unknown COMPREHENSIVE METABOLIC 30221 Bili Total 1.0 mg/dL 09/04 Unknown COMPREHENSIVE METABOLIC 12133 ALK PHOS 58 U/L 2017 Unknown COMPREHENSIVE METABOLIC 63222 SODIUM 142 mmol/L 09/04 Unknown COMPREHENSIVE METABOLIC 52493 CREATININE 0.97 mg/dL 08/17 Unknown COMPREHENSIVE METABOLIC 50194 CALCIUM 9.2 mg/dL 2017 Unknown COMPREHENSIVE METABOLIC 60248 POTASSIUM 4.6 mmol/L 09/04 Unknown COMPREHENSIVE METABOLIC 05793 Total Protein 6.5 g/dL Unknown COMPREHENSIVE METABOLIC 72469 Glucose 96 mg/dL 2017 Unknown COMPREHENSIVE METABOLIC 18647 Bicarbonate 29 mmol/L 08/17 Unknown COMPREHENSIVE METABOLIC 54937 AGAP 6 mmol/L 2017 Unknown LIPID GROUP 51287 Cholesterol 182 mg/dL 09/04/2018 Unkno wn LIPID GROUP 15674 Triglyceride 84 mg/dL 09/04/2018 Unkn own LIPID GROUP 39866 HDL CHOLESTEROL 76 mg/dL 09/04/2018 U nknown LIPID GROUP 50186 Chol/HDL Ratio 2.39 ratio 09/04/2018 U nknown LIPID GROUP 47583 NON-HDL Chol 106 mg/dL 09/04/2018 Unkn own LIPID GROUP 08118 LDL Cholesterol 89 mg/dL 09/04/2018 U nknown GFR CALC 1232125 GFR Non Afr Amr >60 mL/min 09/04/2018 Un known GFR CALC 0392104 GFR Afr Amr >60 mL/min 09/04/2018 Unknow n THYROID STIMULATING HORMONE 41455 TSH 0.713 uIU/mL 09/04/2018 Unknown PSA EQUIMOLAR BARBIE 26361 PSA Total 0.66 ng/mL 8 Unknown A FOOD C P [id number] [place] Cl Class 0 11/17/2017 Unknown A FOOD C P [id number] [place] Ct <0.35 kU/L 11/17/2017 Unknow n A FOOD C P 1643479 [place] Cl Class 0 11/17/2017 Unkn own A FOOD C P [id number] [place] Ct <0.35 kU/L 11/17/2017 Unk nown A FOOD C P 2118394 Egg White Cl Class 0 11/17/2017 Unkno wn A FOOD C P 2439781 Egg White Ct <0.35 kU/L 11/17/2017 Unkn own A FOOD C P 6358101 Egg Yolk Cl Class 0 11/17/2017 Unknow n A FOOD C P 7579054 Egg Yolk Ct <0.35 kU/L 11/17/2017 Unkno wn A FOOD C P 6297110 Cow Milk Cl Class 0 11/17/2017 Unknow n A FOOD C P 2540538 Cow Milk Ct <0.35 kU/L 11/17/2017 Unkno wn A FOOD C P 6273462 Peanut Cl Class 0 11/17/2017 Unknown A FOOD C P 0253163 Peanut Ct <0.35 kU/L 11/17/2017 Unknown A FOOD C P 5798027 Shrimp Cl Class 0 11/17/2017 Unknown A FOOD C P 6063966 Shrimp Ct <0.35 kU/L 11/17/2017 Unknown A FOOD C P 3639614 Soy[place] Cl Class 0 11/17/2017 Unknown A FOOD C P 1200840 Soybean Ct <0.35 kU/L 11/17/2017 Unknow n A FOOD C P 7338627 Wheat Cl Class 0 11/17/2017 Unknown A FOOD C P 4522461 Wheat Ct <0.35 kU/L 11/17/2017 Unknown A FOOD C P 2875290 Potato Cl Class 0 11/17/2017 Unknown A FOOD C P 8557687 Potato Ct <0.35 kU/L 11/17/2017 Unknown A FOOD C P 8676716 Beef Cl Class 2 11/17/2017 Unknown A FOOD C P 7808259 Beef Ct 0.88 kU/L 11/17/2017 Unknown A FOOD C P 6728113 [place] Cl Class 0 11/17/2017 Unknown A FOOD C P 8329772 [place] Ct <0.35 kU/L 11/17/2017 Unknown A FOOD C P 0349051 Pork Cl Class 0 11/17/2017 Unknown A FOOD C P 7021089 Pork Ct <0.35 kU/L 11/17/2017 Unknown A FOOD C P 1408849 [place] Cl Class 0 11/17/2017 Unknown A FOOD C P 5026701 [place] Ct <0.35 kU/L 11/17/2017 Unknown A FOOD C P 8907636 [place] Cl Class 0 11/17/2017 Unkn own A FOOD C P 2736896 [place] Ct <0.35 kU/L 11/17/2017 Unk nown A FOOD C P 3440941 Tom[place] Cl Class 0 11/17/2017 Unknown A FOOD C P 3336370 Tomato Ct <0.35 kU/L 11/17/2017 Unknown A FOOD C P 8011331 T[place] Cl Class 0 11/17/2017 Unknown A FOOD C P 8339300 Tuna Ct <0.35 kU/L 11/17/2017 Unknown A FOOD C P 4240947 [place] CL Class 0 11/17/2017 Unknown A FOOD C P [id number] [place] <0.35 kU/L 11/17/2017 Unknown A FOOD C P 1174521 [place] Cl Class 0 11/17/2017 Unknown A FOOD C P 4914021 [place] Ct <0.35 kU/L 11/17/2017 Unknown A FOOD C P 9063959 Oat Cl Class 0 11/17/2017 Unknown A FOOD C P [id number] Oat Ct <0.35 kU/L 11/17/2017 Unknown A FOOD C P 1239215 [place] Cl Class 0 11/17/2017 Unknown A FOOD C P 9577635 [place] Ct <0.35 kU/L 11/17/2017 Unknown A FOOD C P 7485040 Chicken Meat CL Class 0 11/17/2017 Un known A FOOD C P 8136877 Chicken Meat Ct <0.35 kU/L 11/17/2017 U nknown A FOOD C P 7532802 [place] Cl Class 0 11/17/2017 Unknown A FOOD C P 4867679 [place] Ct <0.35 kU/L 11/17/2017 Unknown A FOOD C P 3281654 Pecan Meat Cl Class 0 11/17/2017 Unkn own A FOOD C P [id number] Pecan Meat Ct <0.35 kU/L 11/17/2017 Unk nown A NUTS PNL 9402418 Peanut Cl Class 0 11/17/2017 Unknown A NUTS PNL 2901292 Peanut Ct <0.35 kU/L 11/17/2017 Unknown A NUTS PNL [id number] [place] Meat Cl Class 0 11/17/2017 Unk nown A NUTS PNL 8846450 [place] Ct <0.35 kU/L 11/17/2017 Un known A NUTS PNL 0618149 [place] Meat Cl Class 0 11/17/2017 Unkn own A NUTS PNL 9303915 [place]ec[place] Ct <0.35 kU/L 11/17/2017 Unk nown A NUTS PNL 1074767 [place] Cl Class 0 11/17/2017 Unknown A NUTS PNL 5547532 [place] Ct <0.35 kU/L 11/17/2017 Unknown A NUTS PNL 8171100 [place] Cl Class 0 11/17/2017 Unknow n A NUTS PNL 4739491 [place] Ct <0.35 kU/L 11/17/2017 Unkno wn A NUTS PNL 9576655 [place] Cl Class 0 11/17/2017 Unkno wn A NUTS PNL 8205037 [place] Ct <0.35 kU/L 11/17/2017 Unkn own A NUTS PNL 2334455 [place] Cl Class 0 11/17/2017 Unknown A NUTS PNL 8070459 [place] Ct <0.35 kU/L 11/17/2017 Unknown A NUTS PNL 2566008 [place] Cl Class 0 11/17/2017 Unkno wn A NUTS PNL 9223667 [place] Ct <0.35 kU/L 11/17/2017 Unkn own A NUTS PNL 0992779 Allergen Interp See Note 11/17/2017 Un known A FRT/VG P [id number] [place] Cl Class 0 11/17/2017 Unkn own A FRT/VG P 1506644 [place] Ct <0.35 kU/L 11/17/2017 Unk nown A FRT/VG P 6448701 [place] Cl Class 0 11/17/2017 Unknown A FRT/VG P 2143656 [place] Ct <0.35 kU/L 11/17/2017 Unknown A FRT/VG P 5413744 [place] Cl Class 0 11/17/2017 Unkn own A FRT/VG P 6696613 [place] Ct <0.35 kU/L 11/17/2017 Unk nown A FRT/VG P 4686227 [place] Cl Class 0 11/17/2017 Unknown A FRT/VG P 0591749 [place] Ct <0.35 kU/L 11/17/2017 Unknown A FRT/VG P 0602120 [place] Cl Class 0 11/17/2017 Unknown A FRT/VG P 4074555 [place] Ct <0.35 kU/L 11/17/2017 Unknown A FRT/VG P 8001585 [place] Cl Class 1 11/17/2017 Unknown A FRT/VG P 5377490 [place] Ct 0.48 kU/L 11/17/2017 Unknown A FRT/VG P 4961844 [place] Cl Class 0 11/17/2017 Unk nown A FRT/VG P 1432429 [place] Ct <0.35 kU/L 11/17/2017 Un known A FRT/VG P 2550266 [place] Fruit Cl Class 0 11/17/2017 Unk nown A FRT/VG P 0724852 [place] Ct <0.35 kU/L 11/17/2017 Un known A FRT/VG P [id number] [place] Cl Class 0 11/17/2017 Unknown A FRT/VG P 3474668 [place] Ct <0.35 kU/L 11/17/2017 Unknown A FRT/VG P 9812960 [place]a Cl Class 0 11/17/2017 Unknown A FRT/VG P 6982429 Pea Ct <0.35 kU/L 11/17/2017 Unknown A FRT/VG P 0012468 [place] Fruit Cl Class 0 11/17/2017 Unkn own A FRT/VG P 3749086 [place] Ct <0.35 kU/L 11/17/2017 Unk nown A FRT/VG P 5212419 Swt [place] Cl Class 0 11/17/2017 Unkn own A FRT/VG P 0744255 Swt [place] Ct <0.35 kU/L 11/17/2017 Unk nown THYROID STIMULATING HORMONE 33819 TSH 1.371 uIU/mL 09/03/2017 Unknown FREE T4 64225 T4 Free 1.26 ng/dL 09/03/2017 Unknown ASSAY TRIIODOTHYRONINE (T3) 64392 T3 Total 0.9 ng/mL Unknown COMPLETE BLOOD COUNT 5094431 WBC 5.9 10e9/L 07/31/20 17 Unknown COMPLETE BLOOD COUNT 1536626 RBC 4.64 10e12/L 2016 Unknown COMPLETE BLOOD COUNT 9202375 HEMOGLOBIN 14.2 g/dL 07/31/20 17 Unknown COMPLETE BLOOD COUNT 0598322 HEMATOCRIT 42.1 % 07/31/20 17 Unknown COMPLETE BLOOD COUNT 9534369 MCV 90.7 fL 7 Unknown COMPLETE BLOOD COUNT 7627459 MCH 30.6 pg 7 Unknown COMPLETE BLOOD COUNT 8524275 MCHC 33.7 g/dL 7 Unknown COMPLETE BLOOD COUNT 4229514 PLATELET COUNT 195 10e9/L Unknown COMPLETE BLOOD COUNT 3945203 Mean Plt Volume 10.0 fL Unknown COMPLETE BLOOD COUNT 9297257 Neut Auto 47.5 % 7 Unknown COMPLETE BLOOD COUNT 0001465 Lymph Auto 37.4 % 07/31/20 17 Unknown COMPLETE BLOOD COUNT 9691822 [place] Auto 11.7 % 7 Unknown COMPLETE BLOOD COUNT 3250279 Eos Auto 3.2 % 7 Unknown COMPLETE BLOOD COUNT 5055565 RDW 12.8 % 7 Unknown COMPLETE BLOOD COUNT 3277433 Baso Auto 0.2 % 7 Unknown COMPLETE BLOOD COUNT 6249722 Neutrophil Abs 2.80 10e9/L Unknown COMPLETE BLOOD COUNT 2493079 Lymphocyte Abs 2.21 10e9/L Unknown COMPLETE BLOOD COUNT 8738006 Monocyte Abs 0.69 10e9/L 07/18 Unknown COMPLETE BLOOD COUNT 8270209 Eosinophil Abs 0.19 10e9/L Unknown COMPLETE BLOOD COUNT 9170229 RDW-SD 41.6 fL 7 Unknown COMPLETE BLOOD COUNT 6756623 Basophil Abs 0.01 10e9/L 07/18 Unknown LIPID GROUP 27867 Cholesterol 186 mg/dL 07/31/2017 Unkno wn LIPID GROUP 18999 Triglyceride 129 mg/dL 07/31/2017 Unkn own LIPID GROUP 31566 HDL CHOLESTEROL 79 mg/dL 07/31/2017 U nknown LIPID GROUP 25171 Chol/HDL Ratio 2.35 ratio 07/31/2017 U nknown LIPID GROUP 47163 NON-HDL Chol 107 mg/dL 07/31/2017 Unkn own LIPID GROUP 52143 LDL Cholesterol 81 mg/dL 07/31/2017 U nknown GFR CALC 7640829 GFR Non Afr Amr >60 mL/min 07/31/2017 Un known GFR CALC 5378224 GFR Afr Amr >60 mL/min 07/31/2017 Unknow n COMPREHENSIVE METABOLIC 12952 AST 19 U/L 2016 Unknown COMPREHENSIVE METABOLIC 44998 ALT 12 U/L 2016 Unknown COMPREHENSIVE METABOLIC 39666 BUN 15 mg/dL 2016 Unknown COMPREHENSIVE METABOLIC 68847 ALBUMIN 4.4 g/dL 2016 Unknown COMPREHENSIVE METABOLIC 95041 CHLORIDE 102 mmol/L 07/31 Unknown COMPREHENSIVE METABOLIC 03406 Bili Total 0.9 mg/dL 07/31 Unknown COMPREHENSIVE METABOLIC 74115 ALK PHOS 53 U/L 2016 Unknown COMPREHENSIVE METABOLIC 01002 SODIUM 138 mmol/L 07/31 Unknown COMPREHENSIVE METABOLIC 19214 CREATININE 1.06 mg/dL 07/18 Unknown COMPREHENSIVE METABOLIC 00728 CALCIUM 9.3 mg/dL 2016 Unknown COMPREHENSIVE METABOLIC 98099 POTASSIUM 4.0 mmol/L 07/31 Unknown COMPREHENSIVE METABOLIC 85409 Total Protein 6.8 g/dL Unknown COMPREHENSIVE METABOLIC 89429 Glucose 86 mg/dL 2016 Unknown COMPREHENSIVE METABOLIC 40090 Bicarbonate 28 mmol/L 07/18 Unknown COMPREHENSIVE METABOLIC 14358 AGAP 8 mmol/L 2016 Unknown COMPREHENSIVE METABOLIC 90751 AST 18 U/L 2015 Unknown COMPREHENSIVE METABOLIC 70454 ALT 9 U/L 2015 Unknown COMPREHENSIVE METABOLIC 37050 BUN 11 mg/dL 2015 Unknown COMPREHENSIVE METABOLIC 44387 ALBUMIN 4.2 g/dL 2015 Unknown COMPREHENSIVE METABOLIC 02369 CHLORIDE 104 mmol/L 05/19 Unknown COMPREHENSIVE METABOLIC 70147 Bili Total 1.2 mg/dL 05/19 Unknown COMPREHENSIVE METABOLIC 26777 ALK PHOS 54 U/L 2015 Unknown COMPREHENSIVE METABOLIC 75075 SODIUM 140 mmol/L 05/19 Unknown COMPREHENSIVE METABOLIC 52239 CREATININE 1.03 mg/dL 10/2015 Unknown COMPREHENSIVE METABOLIC 06226 CALCIUM 9.3 mg/dL 2015 Unknown COMPREHENSIVE METABOLIC 70407 POTASSIUM 4.9 mmol/L 05/19 Unknown COMPREHENSIVE METABOLIC 65316 Total Protein 6.7 g/dL Unknown COMPREHENSIVE METABOLIC 55766 Glucose 92 mg/dL 2015 Unknown COMPREHENSIVE METABOLIC 93156 Bicarbonate 28 mmol/L 10/2015 Unknown COMPREHENSIVE METABOLIC 28906 AGAP 8 mmol/L 2015 Unknown THYROID STIMULATING HORMONE 60814 TSH 1.545 uIU/mL 05/19/2016 Unknown GFR CALC 9842063 GFR Non Afr Amr >60 mL/min 05/19/2016 Un known GFR CALC 2032801 GFR Afr Amr >60 mL/min 05/19/2016 Unknow n VITAMIN B 12 31131 VITAMIN B12 298 pg/mL 05/19/2016 Unkn own COMPLETE BLOOD COUNT 1652662 WBC 5.2 10e9/L 05/19/20 16 Unknown COMPLETE BLOOD COUNT 4213522 RBC 4.34 10e12/L 2015 Unknown COMPLETE BLOOD COUNT 9331434 HEMOGLOBIN 12.9 g/dL 05/19/20 16 Unknown COMPLETE BLOOD COUNT 5442882 HEMATOCRIT 38.9 % 05/19/20 16 Unknown COMPLETE BLOOD COUNT 3455524 MCV 89.6 fL 6 Unknown COMPLETE BLOOD COUNT 5831113 MCH 29.7 pg 6 Unknown COMPLETE BLOOD COUNT 8485356 MCHC 33.2 g/dL 6 Unknown COMPLETE BLOOD COUNT 3631339 PLATELET COUNT 200 10e9/L 10/2015 Unknown COMPLETE BLOOD COUNT 7189895 Mean Plt Volume 10.1 fL 10/2015 Unknown COMPLETE BLOOD COUNT 7813278 Neut Auto 45.4 % 6 Unknown COMPLETE BLOOD COUNT 3167510 Lymph Auto 35.6 % 05/19/20 16 Unknown COMPLETE BLOOD COUNT 9782534 [place] Auto 11.9 % 6 Unknown COMPLETE BLOOD COUNT 3913782 RDW 12.7 % 6 Unknown COMPLETE BLOOD COUNT 4084654 Eos Auto 6.7 % 6 Unknown COMPLETE BLOOD COUNT 8678529 Baso Auto 0.4 % 6 Unknown COMPLETE BLOOD COUNT 8852369 Neutrophil Abs 2.36 10e9/L Unknown COMPLETE BLOOD COUNT 0914946 Lymphocyte Abs 1.85 10e9/L Unknown COMPLETE BLOOD COUNT 7954376 Monocyte Abs 0.62 10e9/L 10/2015 Unknown COMPLETE BLOOD COUNT 7198436 Eosinophil Abs 0.35 10e9/L Unknown COMPLETE BLOOD COUNT 1582389 RDW-SD 40.6 fL 6 Unknown COMPLETE BLOOD COUNT 5043516 Basophil Abs 0.02 10e9/L 10/2015 Unknown LIPID GROUP 00302 Cholesterol 197 mg/dL 05/19/2016 Unkno wn LIPID GROUP 16335 Triglyceride 92 mg/dL 05/19/2016 Unkn own LIPID GROUP 02115 HDL CHOLESTEROL 58 mg/dL 05/19/2016 U nknown LIPID GROUP 10252 Chol/HDL Ratio 3.40 ratio 05/19/2016 U nknown LIPID GROUP 12644 NON-HDL Chol 139 mg/dL 05/19/2016 Unkn own LIPID GROUP 94029 LDL Cholesterol 121 mg/dL 05/19/2016 U nknown FREE T4 90086 T4 Free 1.19 ng/dL 05/19/2016 Unknown COMPREHENSIVE METABOLIC 32712 AST 19 U/L 2014 Unknown COMPREHENSIVE METABOLIC 50079 ALT 10 IU/L 2014 Unknown COMPREHENSIVE METABOLIC 48797 BUN 20 MG/DL 2014 Unknown COMPREHENSIVE METABOLIC 88880 ALBUMIN 4.4 GM/DL 2014 Unknown COMPREHENSIVE METABOLIC 10492 CHLORIDE 104 MMOL/L 04/05 Unknown COMPREHENSIVE METABOLIC 21223 BILI TOT 2.2 MG/DL 2014 Unknown COMPREHENSIVE METABOLIC 68920 ALK PHOS 55 U/L 2014 Unknown COMPREHENSIVE METABOLIC 90763 SODIUM 138 MMOL/L 04/05 Unknown COMPREHENSIVE METABOLIC 53362 CREATININE 1.04 MG/DL 03/18 Unknown COMPREHENSIVE METABOLIC 71732 CALCIUM 9.3 MG/DL 2014 Unknown COMPREHENSIVE METABOLIC 31217 POTASSIUM 4.5 MMOL/L 04/05 Unknown COMPREHENSIVE METABOLIC 35910 PROT TOT 6.7 GM/DL 2014 Unknown COMPREHENSIVE METABOLIC 74708 Glucose 77 MG/DL 2014 Unknown COMPREHENSIVE METABOLIC 52978 BICARB 25 MMOL/L 2014 Unknown COMPREHENSIVE METABOLIC 37229 ANION GAP 9 MEQ/L 2014 Unknown GFR CALC 8552858 GFR AA >60 ML/MIN 04/05/2015 Unknown GFR CALC 5173711 GFR NON-AA >60 ML/MIN 04/05/2015 Unknown LIPID GROUP 81064 HDL TEST 60 MG/DL 04/05/2015 Unknown LIPID GROUP 27813 TRIG 70 MG/DL 04/05/2015 Unknown LIPID GROUP 54648 TEST LDL 137 MG/DL 04/05/2015 Unknown LIPID GROUP 90055 CHOL 211 MG/DL 04/05/2015 Unknown LIPID GROUP 31538 RCHOL/HDL 3.52 RATIO 04/05/2015 Unknow n LIPID GROUP 37187 NON-HDL CH 151 MG/DL 04/05/2015 Unknow n COMPLETE BLOOD COUNT 2877698 WBC 5.3 10e9/L 04/05/20 15 Unknown COMPLETE BLOOD COUNT 6804082 RBC 4.42 10e12/L 2014 Unknown COMPLETE BLOOD COUNT 0629398 HGB 13.4 g/dL 5 Unknown COMPLETE BLOOD COUNT 4261558 HCT DET 39.6 % 5 Unknown COMPLETE BLOOD COUNT 5080291 MCV 89.6 fL 5 Unknown COMPLETE BLOOD COUNT 1682080 MCH 30.3 pg 5 Unknown COMPLETE BLOOD COUNT 8833993 MCHC 33.8 g/dL 5 Unknown COMPLETE BLOOD COUNT 6199226 PLT 201 10e9/L 04/05/20 15 Unknown COMPLETE BLOOD COUNT 3920432 MPV 10.3 fL 5 Unknown COMPLETE BLOOD COUNT 1585971 LUPE % 56.4 % 5 Unknown COMPLETE BLOOD COUNT 8843318 LY % 24.8 % 5 Unknown COMPLETE BLOOD COUNT 9206870 MON % 12.8 % 5 Unknown COMPLETE BLOOD COUNT 5438299 EOS % 5.4 % 5 Unknown COMPLETE BLOOD COUNT 4691902 BASO % 0.6 % 5 Unknown COMPLETE BLOOD COUNT 6016093 RDW 13.2 % 5 Unknown COMPLETE BLOOD COUNT 8969427 ABS LUPE 2.99 10e9/L 015 Unknown COMPLETE BLOOD COUNT 2851007 ABS LYMPH 1.31 10e9/L 015 Unknown COMPLETE BLOOD COUNT 6788498 ABS MONO 0.68 10e9/L 015 Unknown COMPLETE BLOOD COUNT 6602091 ABS EOS 0.29 10e9/L 015 Unknown COMPLETE BLOOD COUNT 2938523 ABS BASO 0.03 10e9/L 015 Unknown COMPLETE BLOOD COUNT 0198091 RDW-SD 42.3 fL 5 Unknown LIPID GROUP 54503 HDL TEST 51 MG/DL 07/19/2012 Unknown LIPID GROUP 08658 TRIG 129 MG/DL 07/19/2012 Unknown LIPID GROUP 07533 TEST LDL 98 MG/DL 07/19/2012 Unknown LIPID GROUP 25973 CHOL 175 MG/DL 07/19/2012 Unknown LIPID GROUP 21201 RCHOL/HDL 3.43 RATIO 07/19/2012 Unknow n COMPREHENSIVE METABOLIC 16113 AST 18 U/L 2011 Unknown COMPREHENSIVE METABOLIC 57535 ALT 12 IU/L 2011 Unknown COMPREHENSIVE METABOLIC 48234 BUN 10 MG/DL 2011 Unknown COMPREHENSIVE METABOLIC 50507 ALBUMIN 4.1 GM/DL 2011 Unknown COMPREHENSIVE METABOLIC 45471 CHLORIDE 103 MMOL/L 07/19 Unknown COMPREHENSIVE METABOLIC 63203 BILI TOT 0.9 MG/DL 2011 Unknown COMPREHENSIVE METABOLIC 52730 ALK PHOS 62 U/L 2011 Unknown COMPREHENSIVE METABOLIC 29766 SODIUM 138 MMOL/L 07/19 Unknown COMPREHENSIVE METABOLIC 20163 CREATININE 1.08 MG/DL 10/2011 Unknown COMPREHENSIVE METABOLIC 79361 CALCIUM 9.1 MG/DL 2011 Unknown COMPREHENSIVE METABOLIC 66685 POTASSIUM 4.2 MMOL/L 07/19 Unknown COMPREHENSIVE METABOLIC 26972 PROT TOT 6.7 GM/DL 2011 Unknown COMPREHENSIVE METABOLIC 48224 Glucose 101 MG/DL 2011 Unknown COMPREHENSIVE METABOLIC 57098 BICARB 27 MMOL/L 2011 Unknown COMPREHENSIVE METABOLIC 75820 ANION GAP 8 MEQ/L 2011 Unknown GFR CALC 6614594 GFR AA >60 ML/MIN 07/19/2012 Unknown GFR CALC 0420892 GFR NON-AA >60 ML/MIN 07/19/2012 Unknown Procedures Procedure Codes Date ROUTINE VENIPUNCTURE CPT-4: 88192 09/30/2019 COMPREHEN METABOLIC PANEL CPT-4: 97806 09/30/2019 COMPLETE CBC W/AUTO DIFF WBC CPT-4: 35955 09/30/2019 ASSAY OF PSA TOTAL CPT-4: 77335 09/30/2019 ASSAY THYROID STIM HORMONE CPT-4: 35621 09/30/2019 LIPID PANEL CPT-4: 66675 09/30/2019 ROUTINE VENIPUNCTURE CPT-4: 28007 09/24/2019 COMPLETE CBC W/AUTO DIFF WBC CPT-4: 82217 09/24/2019 COMPREHEN METABOLIC PANEL CPT-4: 39919 09/24/2019 LIPID PANEL CPT-4: 32055 09/24/2019 ASSAY THYROID STIM HORMONE CPT-4: 42210 09/24/2019 THER/PROPH/DIAG INJ SC/IM CPT-4: 74194 01/13/2019 TRIAMCINOLONE ACET INJ NOS CPT-4: J3301 01/13/2019 DEXAMETHASONE SODIUM PHOS CPT-4: J1100 01/13/2019 ROUTINE VENIPUNCTURE CPT-4: 40744 09/04/2018 COMPREHEN METABOLIC PANEL CPT-4: 11272 09/04/2018 COMPLETE CBC W/AUTO DIFF WBC CPT-4: 48999 09/04/2018 LIPID PANEL CPT-4: 52497 09/04/2018 ASSAY OF PSA TOTAL CPT-4: 55892 09/04/2018 ASSAY THYROID STIM HORMONE CPT-4: 22392 09/04/2018 URINALYSIS NONAUTO W/O SCOPE CPT-4: 12181 05/15/2018 ROUTINE VENIPUNCTURE CPT-4: 44792 11/16/2017 A FRT/VG P CPT-4: 8703239 11/16/2017 A FOOD C P CPT-4: 0734524 11/16/2017 A NUTS PNL CPT-4: 3359176 11/16/2017 THER/PROPH/DIAG INJ SC/IM CPT-4: 87982 11/06/2017 TRIAMCINOLONE ACET INJ NOS CPT-4: J3301 11/06/2017 DEXAMETHASONE SODIUM PHOS CPT-4: J1100 11/06/2017 ROUTINE VENIPUNCTURE CPT-4: 02437 09/03/2017 ASSAY OF FREE THYROXINE CPT-4: 55215 09/03/2017 ASSAY THYROID STIM HORMONE CPT-4: 40239 09/03/2017 ASSAY TRIIODOTHYRONINE (T3) CPT-4: 05618 09/03/2017 ROUTINE VENIPUNCTURE CPT-4: 50790 07/31/2017 COMPREHEN METABOLIC PANEL CPT-4: 93117 07/31/2017 COMPLETE CBC W/AUTO DIFF WBC CPT-4: 75800 07/31/2017 LIPID PANEL CPT-4: 94674 07/31/2017 FLU VACC PRSV FREE INC ANTIG 65 AND OLDER CPT-4: 84521 07/04/2017 ADMIN INFLUENZA VIRUS VAC CPT-4: G0008 07/04/2017 ROUTINE VENIPUNCTURE CPT-4: 92562 02/26/2017 ASSAY THYROID STIM HORMONE CPT-4: 57810 02/26/2017 COMPREHEN METABOLIC PANEL CPT-4: 11558 02/26/2017 COMPLETE CBC W/AUTO DIFF WBC CPT-4: 07261 02/26/2017 LIPID PANEL CPT-4: 95180 02/26/2017 ASSAY OF PSA TOTAL CPT-4: 65610 02/26/2017 FLUZONE, 5ML (Medicare) CPT-4: Q2038 06/28/2016 ADMIN INFLUENZA VIRUS VAC CPT-4: G0008 06/28/2016 ROUTINE VENIPUNCTURE CPT-4: 31129 05/19/2016 ASSAY OF FREE THYROXINE CPT-4: 54590 05/19/2016 ASSAY THYROID STIM HORMONE CPT-4: 47145 05/19/2016 COMPREHEN METABOLIC PANEL CPT-4: 38315 05/19/2016 COMPLETE CBC W/AUTO DIFF WBC CPT-4: 25333 05/19/2016 LIPID PANEL CPT-4: 31510 05/19/2016 VITAMIN B-12 CPT-4: 87975 05/19/2016 PPPS, initial visit CPT-4: G0438 05/10/2016 ROUTINE VENIPUNCTURE CPT-4: 42861 04/05/2015 ASSAY THYROID STIM HORMONE CPT-4: 28495 04/05/2015 COMPREHEN METABOLIC PANEL CPT-4: 36900 04/05/2015 COMPLETE CBC W/AUTO DIFF WBC CPT-4: 44243 04/05/2015 LIPID PANEL CPT-4: 74815 04/05/2015 ASSAY OF PSA TOTAL CPT-4: 46371 04/05/2015 ROUTINE VENIPUNCTURE CPT-4: 24534 07/19/2012 COMPREHEN METABOLIC PANEL CPT-4: 96352 07/19/2012 LIPID PANEL CPT-4: 98225 07/19/2012 ELECTROCARDIOGRAM COMPLETE CPT-4: 63094 03/22/2012 Vital Signs Date Vital 09/24/2019 Blood Pressure 1: 125/72 Code: 8480-6 BMI: 19.8 Code: 81988-3 Heart Rate 1: 88 bpm Height: 5'11" [...] 1: 102/60 Code: 8480-6 BMI: 19.1 Code: 38391-5 Heart Rate 1: 82 bpm Height: 5'11" Respiratory Rate: 22 bpm SpO2: 97% Tempera ture: 36.4 (C) / 97.6 (F) Weight: 137 lbs 04/25/2018 Blood Pressure 1: 118/64 Code: 8480-6 BMI: 19.2 Code: 41144-2 Heart Rate 1: 98 bpm Height: 5'11" Respiratory Rate: 20 bpm SpO2: 99% Tempera ture: 36.4 (C) / 97.6 (F) Weight: 138 lbs 11/06/2017 Blood Pressure 1: 108/68 Code: 8480-6 BMI: 18.5 Code: 42492-8 Heart Rate 1: 68 bpm Height: 5'11" Respiratory Rate: 20 bpm SpO2: 96% Tempera ture: 36.8 (C) / 98.2 (F) Weight: 133 lbs 09/03/2017 Blood Pressure 1: 122/64 Code: 8480-6 BMI: 17.6 Code: 05950-8 Heart Rate 1: 90 bpm Height: 5'11" Respiratory Rate: 20 bpm SpO2: 98% Tempera ture: 36.4 (C) / 97.6 (F) Weight: 126 lbs 08/21/2017 Blood Pressure 1: 114/80 Code: 8480-6 BMI: 17.9 Code: 24748-7 Heart Rate 1: 80 bpm Height: 5'11" Respiratory Rate: 20 bpm SpO2: 95% Tempera ture: 36.6 (C) / 97.9 (F) Weight: 128 lbs 02/13/2017 Blood Pressure 1: 122/60 Code: 8480-6 BMI: 18.5 Code: 58670-8 Heart Rate 1: 76 bpm Height: 5'11" Respiratory Rate: 20 bpm SpO2: 96% Tempera ture: 36.9 (C) / 98.4 (F) Weight: 133 lbs 11/23/2016 Blood Pressure 1: 126/70 Code: 8480-6 BMI: 18.5 Code: 21311-0 Heart Rate 1: 100 bpm Height: 5'11" Respiratory Rate: 20 bpm SpO2: 96% Tempera ture: 37.1 (C) / 98.8 (F) Weight: 133 lbs 05/23/2016 Blood Pressure 1: 128/82 Code: 8480-6 BMI: 18.5 Code: 55001-4 Heart Rate 1: 88 bpm Height: 5'11" Respiratory Rate: 20 bpm Temperature: 36 .7 (C) / 98.0 (F) Weight: 133 lbs 05/10/2016 Blood Pressure 1: 146/70 Code: 8480-6 BMI: 18.5 Code: 82748-3 Heart Rate 1: 84 bpm Height: 5'11" Respiratory Rate: 20 bpm Temperature: 36 .7 (C) / 98.1 (F) Weight: 133 lbs 04/01/2015 Blood Pressure 1: 102/60 Code: 8480-6 BMI: 18.5 Code: 68093-7 Heart Rate 1: 64 bpm Height: 5'11" Respiratory Rate: 20 bpm Temperature: 36 .8 (C) / 98.2 (F) Weight: 133 lbs 01/13/2014 Blood Pressure 1: 124/78 Code: 8480-6 BMI: 19.8 Code: 49398-7 Heart Rate 1: 76 bpm Height: 5'11" Respiratory Rate: 20 bpm Temperature: 36 .8 (C) / 98.2 (F) Weight: 142 lbs 04/03/2012 Blood Pressure 1: 106/76 Code: 8480-6 BMI: 20.9 Code: 31679-5 Heart Rate 1: 84 bpm Height: 5'11" Respiratory Rate: 20 bpm Temperature: 36 .7 (C) / 98.0 (F) Weight: 150 lbs 12/20/2011 Blood Pressure 1: 116/60 Code: 8480-6 BMI: 20.1 Code: 83692-0 Heart Rate 1: 80 bpm Height: 5'11" Respiratory Rate: 20 bpm Temperature: 36 .4 (C) / 97.6 (F) Weight: 144 lbs 10/24/2011 Blood Pressure 1: 132/74 Code: 8480-6 BMI: 19.7 Code: 40298-9 Heart Rate 1: 96 bpm Height: 5'11" [...] 04/05/2015 follow up 04/01/2015 follow up 01/13/2014 [facility] November 2012 lab draw 07/19/2012 follow up 04/03/2012 S/P stent placement in LAD, changed effient to plavix hip pain 12/20/2011 dyskinesia or tremor 10/24/2011 follow up 03/13/2011 started on effient, zocor, and atenolol follow up 02/20/2011 [facility]Dr Christian rojas follow up 02/23/2010 [facility], appt with Dr Bajwa 03/22/10 insomnia 01/12/2010 problems falling and staying asleep, takes nortriptyline Encounters Encounter Performer Location Codes Date () NURSE/OUTPATIENT VISIT EST Diagnosis: Essential (primary) hypertension[ICD10: I10] Diagnosis: Mixed hyperlipidemia[ICD10: E78.2] Diagnosis: Encounter for screening for malignant neoplasm of prostate[ICD10: Z12.5] Vonnie MATHEWS Undertone CPT-4: 18188 09/30/2019 ([id number]) OFFICE/OUTPATIENT VISIT EST Diagnosis: Encounter for therapeutic drug level monitoring[ICD10: Z51.81] Diagnosis: Essential tremor[ICD10: G25.0] Verna Ramirez VONNIE MATHEWS Undertone CPT-4: 56753 09/24/2019 ([id number]) OFFICE/OUTPATIENT VISIT EST Diagnosis: Noninfective gastroenteritis and colitis, unspecified[ICD10: K52.9] Diagnosis: Hemorrhage of anus and rectum[ICD10: K62.5] Vonnie MATHEWS Undertone CPT-4: 45553 05/26/2019 ([id number]) OFFICE/OUTPATIENT VISIT EST Diagnosis: Other intervertebral disc degeneration, 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] Diagnosis: Other forms of dyspnea[ICD10: R06.09] Vonnie MATHEWS [employer] [facility] CPT-4: 16655 03/17/2019 OFFICE/OUTPATIENT VISIT EST Diagnosis: Other intervertebral disc degeneration, 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] Diagnosis: Other symptoms and signs involving the musculoskeletal system[ICD10: R29.898] Vonnie MATHEWS DO [facility] CPT-4: 47756 02/18/2019 ([id number]) OFFICE/OUTPATIENT VISIT EST Diagnosis: Other allergic rhinitis[ICD10: J30.89] Akilah MATHEWS [employer] [facility] CPT-4: 60562 01/13/2019 ([id number]) NURSE/OUTPATIENT VISIT EST Diagnosis: Mixed hyperlipidemia[ICD10: E78.2] Diagnosis: Essential (primary) hypertension[ICD10: I10] Diagnosis: Encounter for screening for malignant neoplasm of prostate[ICD10: Z12.5] Diagnosis: Encounter for general adult medical examination with abnormal findings[ICD10: Z00.01] Diagnosis: Benign prostatic hyperplasia without lower urinary tract symptoms[ICD10: N40.0] Vonnie MATHEWS [employer] [facility] CPT-4: 95506 09/04/2018 ([id number]) OFFICE/OUTPATIENT VISIT EST Diagnosis: Otorrhea, left ear[ICD10: H92.12] Diagnosis: Impacted cerumen, right ear[ICD10: H61.21] Verna MATHEWS [employer] [facility] CPT-4: 69706 09/03/2018 ([id number]) OFFICE/OUTPATIENT VISIT EST Diagnosis: Other intervertebral disc degeneration, 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] Diagnosis: Primary insomnia[ICD10: F51.01] Diagnosis: Essential tremor[ICD10: G25.0] Vonnie MATHEWS [employer] [facility] CPT-4: 43085 08/26/2018 ([id number]) OFFICE/OUTPATIENT VISIT EST Diagnosis: Pelvic and perineal pain[ICD10: R10.2] Verna MATHEWS [employer] [facility] CPT-4: 98423 05/15/2018 ([id number]) OFFICE/OUTPATIENT VISIT EST Diagnosis: Encounter for therapeutic drug level monitoring[ICD10: Z51.81] Diagnosis: Acute sinusitis, unspecified[ICD10: J01.90] Diagnosis: Other intervertebral disc degeneration, 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] Diagnosis: Essential tremor[ICD10: G25.0] Diagnosis: Raynaud's syndrome without gangrene[ICD10: I73.00] Verna MATHEWS [employer] [facility] CPT-4: 34409 04/25/2018 ([id number]) OFFICE/OUTPATIENT VISIT EST Diagnosis: Idiopathic urticaria[ICD10: L50.1] Diagnosis: Other urticaria[ICD10: L50.8] Vonniefabricio COLMENARES Denia MATHEWS [employer] [facility] CPT-4: 73149 11/16/2017 ([id number]) OFFICE/OUTPATIENT VISIT EST Diagnosis: Idiopathic urticaria[ICD10: L50.1] Diagnosis: Other urticaria[ICD10: L50.8] Diagnosis: Other forms of dyspnea[ICD10: R06.09] Vonnie RODGERS Denia BOWMAN [employer] [facility] CPT-4: 53542 11/06/2017 ([id number]) OFFICE/OUTPATIENT VISIT EST Diagnosis: Dyspnea, unspecified[ICD10: R06.00] Diagnosis: Abnormal weight loss[ICD10: R63.4] Vonnie DOUGLASS REA [employer] [facility] CPT-4: 73045 09/03/2017 ([id number]) OFFICE/OUTPATIENT VISIT EST Diagnosis: 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] Diagnosis: Mixed hyperlipidemia[ICD10: E78.2] Diagnosis: Essential tremor[ICD10: G25.0] Diagnosis: Essential (primary) hypertension[ICD10: I10] Diagnosis: Abnormal weight loss[ICD10: R63.4] Vonnie LUCIA [employer] [facility] CPT-4: 72400 08/21/2017 ([id number]) OFFICE/OUTPATIENT VISIT EST Diagnosis: Mixed hyperlipidemia[ICD10: E78.2] Diagnosis: Essential (primary) hypertension[ICD10: I10] Diagnosis: 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] Diagnosis: Anemia, unspecified[ICD10: D64.9] Vonnie MATHEWS DO [facility] CPT-4: 49232 07/31/2017 ([id number]) OFFICE/OUTPATIENT VISIT EST Diagnosis: FLU VACCINE[ICD10: Z23] Vonnie GERMAN DO [facility] CPT-4: 36726 07/04/2017 ([id number]) OFFICE/OUTPATIENT VISIT EST Diagnosis: Mixed hyperlipidemia[ICD10: E78.2] Diagnosis: Essential tremor[ICD10: G25.0] Diagnosis: 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] Diagnosis: Essential (primary) hypertension[ICD10: I10] Diagnosis: Supraventricular tachycardia[ICD10: I47.1] Diagnosis: Other fatigue[ICD10: R53.83] Diagnosis: Encounter for screening for malignant neoplasm of prostate[ICD10: Z12.5] Vonnie MATHEWS DO [facility] CPT-4: 36473 02/26/2017 ([id number]) OFFICE/OUTPATIENT VISIT EST Diagnosis: Essential tremor[ICD10: G25.0] Vonnie MATHEWS DO [facility] CPT-4: 54431 02/13/2017 ([id number]) OFFICE/OUTPATIENT VISIT EST Diagnosis: Essential tremor[ICD10: G25.0] Diagnosis: Other intervertebral disc degeneration, 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] Vonnie MATHEWS DO [facility] CPT-4: 65372 11/23/2016 ([id number]) OFFICE/OUTPATIENT VISIT EST Diagnosis: FLU VACCINE[ICD10: Z23] Vonnie GERMAN DO [facility] CPT-4: 28862 06/28/2016 OFFICE/OUTPATIENT VISIT EST Diagnosis: Open bite of right hand, initial encounter[ICD10: S61.451A] Vonnie MATHEWS DO [facility] CPT-4: 24251 05/23/2016 ([id number]) OFFICE/OUTPATIENT VISIT EST Diagnosis: Encounter for general adult medical examination with abnormal findings[ICD10: Z00.01] Diagnosis: Mixed hyperlipidemia[ICD10: E78.2] Diagnosis: Essential tremor[ICD10: G25.0] Diagnosis: 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] Vonnie BOWMAN [employer] [facility] CPT-4: 83235 05/19/2016 ([id number]) OFFICE/OUTPATIENT VISIT EST Diagnosis: HYPERLIPIDEMIA NEC/NOS[ICD9: 272.4] Diagnosis: CAD[ICD9: 414.00] Diagnosis: TACHYCARDIA[ICD9: 785.0] Diagnosis: HYPERTENSION[ICD9: 401.9] Diagnosis: Routine medical exam[ICD9: V70.0] Vonnie BOWMAN Undertone CPT-4: 90930 04/05/2015 ([id number]) OFFICE/OUTPATIENT VISIT EST Diagnosis: HYPERTENSION[ICD9: 401.9] Diagnosis: HYPERLIPIDEMIA NEC/NOS[ICD9: 272.4] Diagnosis: CAD[ICD9: 414.00] Diagnosis: LUMB/LUMBOSAC DISC DEGEN[ICD9: 722.52] Vonnie Romuloalyssaranjan DOLLY GASPAR Denia BOWMAN Under[employer] CPT-4: 66795 04/01/2015 ([id number]) OFFICE/OUTPATIENT VISIT EST Diagnosis: CHEST PAIN NOS[ICD9: 786.50] Diagnosis: PAIN IN THORACIC SPINE[ICD9: 724.1] Diagnosis: HYPERTENSION[ICD9: 401.9] Diagnosis: GERD[ICD9: 530.81] Vonnie MATHEWS Undertone CPT-4: 26226 01/13/2014 ([id number]) OFFICE/OUTPATIENT VISIT EST Diagnosis: CAD[ICD9: 414.00] Diagnosis: HYPERLIPIDEMIA NEC/NOS[ICD9: 272.4] Vonnie Romulojuan miguel ANNA Denia MATHEWS Undertone CPT-4: 15523 07/19/2012 ([id number]) OFFICE/OUTPATIENT VISIT EST Diagnosis: CAD[ICD9: 414.00] Diagnosis: INSOMNIA NOS[ICD9: 780.52] Vonnie Romulojuan miguel COLMENARES Denia DYEER Undertone CPT-4: 28081 04/03/2012 ([id number]) OFFICE/OUTPATIENT VISIT EST Diagnosis: CHEST PAIN NOS[ICD9: 786.50] Diagnosis: CAD[ICD9: 414.00] Vonnie COLMENARES S. ORENDER DO [facility] CPT-4: 48521 03/22/2012 ([id number]) OFFICE/OUTPATIENT VISIT EST Diagnosis: PROSTATITIS[ICD9: 601.9] Diagnosis: TREMOR NEC[ICD9: 333.1] Vonnie COLMENARES S. OREND ER DO [facility] CPT-4: 60881 12/20/2011 OFFICE/OUTPATIENT VISIT EST Diagnosis: TREMOR NEC[ICD9: 333.1] Diagnosis: TACHYCARDIA[ICD9: 785.0] Diagnosis: HYPERTENSION[ICD9: 401.9] Vonnie COLMENARES S. ORE NDER DO [facility] CPT-4: 45164 10/24/2011 OFFICE/OUTPATIENT VISIT EST Vonnie COLMENARES S. ROMULO NDER DO [facility] CPT- 4: 18831 03/13/2011 ([id number]) OFFICE/OUTPATIENT VISIT EST Vonnie GASPAR SKim ORENDER DO [facility] CPT-4: 84759 02/20/2011 ([id number]) OFFICE/OUTPATIENT VISIT, EST Vonnie NELSON S. ORENDER DO [facility] CPT-4: 08930 02/23/2010 ([id number]) OFFICE/OUTPATIENT VISIT, EST Vonnie NELSON S. ORENDER DO [facility] CPT-4: 16708 01/12/2010 Plan of Care Planned Activity Notes Codes Status Date Appointment: [facility] [facility] 09/25/2019 Visit Diagnosis Plan: Essential tremor Discussion: sta ble on clonazepam. educated patient about purchasing a large, heavy pen that will allow him to improve his writing. instructed him that pens can be purchased on [employer]. ICD-9 : 333.1 ICD-10 : G25.0 09/24/2019 Visit Diagnosis Plan: Encounter for therapeutic drug l evel monitoring Discussion: UDS and contract completed today. ICD-9 : V58.83 ICD-10 : Z51.81 09/24/2019 Appointment: [facility] [place] MEDICATION REVIEW 09/24/2019 Visit Diagnosis Plan: Noninfective gastroenteritis and colitis, unspecified Discussion: Kathrin duron Update colonoscopy ICD-9 : 558.9 ICD-10 : K52.9 05/26/2019 Visit Diagnosis Plan: Hemorrhage of anus and rectum Di scussion: Update colonoscopy ICD-9 : 569.3 ICD-10 : K62.5 05/26/2019 Appointment: Vonnie Mathewstel: [address] [place], [place] [phone] [place] record request faxed 05/23; LM with medical records 05/26/19 Hospital Follow Up 05/26/2019 Care Plan: Referral Order SNOMED-CT : 30 [id number] Pending 05/26/2019 Visit Diagnosis Plan: Other intervertebral disc degene ration, lumbar region Discussion: Increase lyrica to 150mg po q HS Continue stretches from PT [facility] Fwup after that appointment ICD-9 : 722.52 ICD-10 : M51.36 03/17/2019 Appointment: Vonnie Mathews WPtel: [address] [place], [place] [phone] [place] FOLLOW UP 03/17/2019 Visit Diagnosis Plan: Other intervertebral disc degene ration, lumbar region Discussion: Start PT Referral for epidural Will start lyrica 75mg po q HS once CT scan results obtained [facility] Follow Up: 3 weeks ICD-9 : [...] ICD-10 : R29.898 02/18/2019 Appointment: Vonnie Mathewstel: [address] [place], [place] [phone] [place] FOLLOW UP 02/18/2019 Appointment: Vonnie Mathewstel: [address] [place], [place] [phone] [place] CANCELED 02/18/2019 Visit Diagnosis Plan: Other [...] 01/13/2019 Appointment: Akilah Lopez [address] [address] [place] Due for annual wellness ACUTE ILLNESS 01/14/20 Appointment: Vonnie Mathews WPtel: [phone] [address] [place] LAB 09/04/2018 Visit Diagnosis Plan: Impacted [...] : H92.12 09/03/2018 Appointment: Verna Ramirez [address] ACUTE ILLNESS 09/03/2018 Visit Diagnosis [...] M51.36 08/26/2018 Appointment: Vonnie Mathews WPtel: [facility] [place] [address] [place] FOLLOW UP 08/26/2018 Visit Diagnosis Plan: [...] ICD-10 : R10.2 05/15/2018 Appointment: Verna Ramirez [address] [place], [place] [address] ACUTE ILLNESS 05/15/2018 Patient Education: Patient Medication Summary Completed 05/15/2018 Care Plan: US EXAM PELVIC COMPLETE scrotal LOINC : 33333-9 Pending 05/15/2018 Visit Diagnosis Plan: Other intervertebral [...] : I73.00 04/25/2018 Appointment: Verna Ramirez 504 [facility] MEDICATION REVIEW 04/25/2018 Patient Education: Patient Medication Summary Completed 04/25/2018 Appointment: Vonnie Mathews WPtel: [address] [place], [place] [phone] 11/16/2017 Patient Education: Patient Medication Summary Completed [...] : L50.1 11/06/2017 Appointment: Vonnie Mathews WPtel: [address] [place], [place] [phone] FOLLOW UP 11/06/2017 Patient Education: Patient Medication [...] : R63.4 09/03/2017 Appointment: Vonnie Mathews WPtel: [address] [place], [place] [phone] FOLLOW UP 09/03/2017 Patient Education: Patient Medication [...] Diagnosis Plan: Atherosclerotic he art disease of [place] coronary artery without angina pectoris Discussion: Sees Cardiology in 2 days To ER if CP returns before ICD-9 : 414.00 ICD-10 : I25.10 08/21/2017 Appointment: Vonnie Mathews WPtel: [phone] [place], [place] [phone] [place] FOLLOW UP 08/21/2017 Patient Education: Patient Medication Summary Completed 08/21/2017 Appointment: Vonnie Mathews WPtel: [address] [place], [place] [phone] [place] LAB 07/31/2017 Patient Education: Patient Medication Summary Completed 07/31/2017 Appointment: Vonnie Mathews WPtel: [address] [place], [place] [phone] [place] INJECTION 07/04/2017 Patient Education: Patient Medication Summary Completed 07/04/2017 Appointment: Vonnie Mathews WPtel: [address] [place], [place] [phone] [place] LAB 02/26/2017 Patient Education: Patient Medication Summary Completed 02/26/2017 Visit Diagnosis Plan: Essential tremor Discussion: Con tinue clonazepam at 1mg q AM and primidone 50mg q HS Follow Up: 3 months ICD-9 : 333.1 ICD-10 : G25.0 02/13/2017 Appointment: Vonnie Mathews WPtel: [address] [place], [place] [phone] [place] 02/08 confirmed~sl FOLLOW UP 02/13/2017 Patient Education: Patient Medication Summary Completed 02/13/2017 Appointment: Vonnie Mathews WPtel: [address] [place], [place] [id number] [place] RESCHEDULED 01/23/2017 Visit Diagnosis Plan: Other intervertebral disc degene ration, lumbar region Discussion: DC oxycodone Tramadol 50mg 1-2 po TID prn pain Follow Up: 2 months ICD-9 : 722.52 ICD-10 : M51.36 11/23/2016 Visit Diagnosis Plan: Essential tremor Discussion: Inc rease clonazepam to 1mg po BID Discussed sinemet ICD-9 : 333.1 ICD-10 : G25.0 11/23/2016 Appointment: Vonnie Mathews WPtel: [address] [place], [place] [phone] 11/22 confirmed~ MEDICATION REVIEW 11/23/2016 Patient Education: Patient Medication Summary Completed 11/23/2016 Patient Education: [facility] [employer] - Clonazepam - 18-64 - Dynamic Portal ID Completed 11/23/2016 Appointment: Vonnie Mathews WPtel: [address] [place], [place] [phone] INJECTION 06/28/2016 Patient Education: Patient Medication Summary Completed 06/28/2016 Referral: Fernando Day WPtel: #1 [facility]66[facility] [phone] per Maribeth, the patient is sched uled [...] prn Notify if worsening 05/23/2016 Appointment: Vonnie Mtahews WPtel: [phone] [facility] ER Follow UP 05/23/2016 Patient Education: Patient Medication Summary Completed 05/23/2016 Appointment: Vonnie Mathews WPtel: [facility] LAB 05/19/2016 Patient Education: Patient Medication Summary Completed 05/19/2016 Visit Plan: Change coreg to 3.125mg BID Trial of low dose clonazepam 0.5mg BID for tremors Fwup with Dr. Ramsey as scheduled Return for fasting lab--CBC, CMP, TSH, free T4, Lipids, PSA, B12 Proceed with Colonoscopy 05/10/2016 Appointment: Vonnie Mathews WPtel: [phone] [facility] 05/09 confirmed~sl Annual Well Visit 05/10/2016 Patient Education: Patient Medication Summary Completed 05/10/2016 Care Plan: Referral Order SNOMED-CT : 30 [id number] Pending 05/10/2016 Appointment: Vonnie Mathews WPtel: [address] [place], [place] [phone] [place] Rescheduled for 05/10/16 at 2PM~lb RESCHEDULED 04/26/2016 Referral: Danilo Ramsey [facility]el: [facility] Referral Initiated 04/29/2015 Appointment: Vonnie Mathews WPtel: [address] [place], [place] [phone] LAB 04/05/2015 Patient Education: Patient Medication Summary Completed 04/05/2015 Visit Plan: Return in AM for fasting lab --CMP, lipids, CBC, TSH, PSA Change hydrocodone to oxycodone 7.5/325mg 1-2 po TID Schedule with cardiology Needs colonoscopy once cardiology evaluation complete Will need to restart chol meds after lab Recheck 1mo on pain meds 04/01/2015 Appointment: Vonnie Mathews WPtel: [address] [place], [place] [phone] 03/31 confirmed -mf PHYSICAL 04/01/2015 Patient Education: Patient Medication Summary Completed 04/01/2015 Appointment: Vonnie Mathewstel: [phone] [facility] Annual Well Visit 09/23/2014 Visit Plan: Continue protonix Pt has fwu p with Card next month Rec chiropracter or PT for ribs/thoracics being out and could be contributing to chest pain 01/13/2014 Appointment: Vonnie Mathews WPtel: [address] [place] [address] [place] FOLLOW UP 01/13/2014 Patient Education: Patient Medication Summary Completed 01/13/2014 Appointment: Ariella Mcnally WPtel: [address] [place] [address] US FOLLOW UP 12/12/2013 Appointment: Malika Cárdenas WPtel: [address] [place] [address] [place] PHYSICAL 12/12/2013 Appointment: Vonnie Mathews WPtel: [address] [place] [address] ACUTE ILLNESS 02/20/2013 Appointment: Vonnie Mathews WPtel: [address] [place] [address] LAB 07/19/2012 Patient Education: Patient Medication Summary Completed 07/19/2012 Appointment: Vonnie Mathews WPtel: [address] [place] [address] FOLLOW UP 04/03/2012 Patient Education: Patient Medication Summary Completed 04/03/2012 Appointment: Vonnie Mathews WPtel: [address] [place] [address] ACUTE ILLNESS 03/22/2012 Patient Education: Patient Medication Summary Completed 03/22/2012 Appointment: Vonnie Mathews WPtel: [address] [place] [address] US FOLLOW UP 12/26/2011 Visit Plan: Magy hayes eds 12/20/2011 Appointment: Vonnie Mathews WPtel: [address] [place] [address] ACUTE ILLNESS 12/20/2011 Patient Education: Patient Medication Summary Completed 12/20/2011 Visit Plan: Change neurontin to Cymbalta 30mg for 1wk then 60mg QD Add Propranolol for tremor 10/24/2011 Appointment: Vonnie Mathewstel: [address] [place] [address] ACUTE ILLNESS 10/24/2011 Appointment: Vonnie Mathews WPtel: [address] [place] [address] ACUTE ILLNESS 10/24/2011 Patient Education: Patient Medication Summary Completed 10/24/2011 Visit Plan: Continue current meds and fw up with Card as scheduled 03/13/2011 Appointment: Vonnie Mathews WPtel: [address] [place] [address] FOLLOW UP 03/13/2011 Patient Education: Patient Medication Summary Completed 03/13/2011 Visit Plan: Will obtain all records and lab from [place] Discussed will likely need heart cath which pt states that Card did talk to him about in the hospital 02/20/2011 Appointment: Vonnie Mathews WPtel: [address] [place] [address] ACUTE ILLNESS 02/20/2011 Patient Education: Patient Medication Summary Completed 02/20/2011 Visit Plan: Cont Pepcid and Prilosec See Card for cardiac cath. 02/23/2010 Appointment: Vonnie Mathews WPtel: [address] [place], [place] [phone] FOLLOW UP 02/23/2010 Patient Education: Patient Medication Summary Completed 02/23/2010 Visit Plan: Increase Pamelor to 75mg qhs Increase Hydrocodone to 10/325mg 1-2 po q6 prn 01/12/2010 Appointment: Vonnie Mathews WPtel: [address] [place] [address] ACUTE ILLNESS 01/12/2010 Patient Education: Patient Medication Summary Completed 01/12/2010 Referral: Iván Pardo WPtel: [facility] [address] [facility] 1 [id number] [place] Referral Initiated Referral: Fernando Day WPtel: #1 [facility] [place] [id number] [place] Referral Completed Referral: Fernando DayKim WPtel: #1 [facility] [place] [id number] [place] Referral Appointment Requested Instructions Comment . [...]
--- OUTSIDE RECORDS SUMMARY | 2020-02-10 08:26 | XMS REPORT | CCD ---
Author Author Nash Mathews D.O. Organization [facility] Address [address] [place] [address] Phone Care Team Providers Care Cashier Receptionist Name Role Phone Vonnie Mathews D.O., PP Unavailable CCM Unavailable Summary Purpose Interface Exchange Insurance Providers Payer name Policy type / Coverage type Covered green party ID Effective Begin Date Effective End Date [place]PS MEDICARE PART B [place] Part B [id number] 2018 Unknown Family History Family History data not found Social History Social History Element Codes Description Effective Dates Marital status Unknown 10/24/[address]: 970307598 Nonsmoker 03/29/2011 Allergies, Adverse Reactions, Alerts Substance Reaction Codes Entered Date Inactivated Date Status _ Unknown 11/20/2017 No Inactive Date Active _ reaction, Unknown 11/23/2016 No Inactive Date Active Problems Condition Codes Effective Dates Condition Status Essential (primary) hypertension ICD-9: 401.9 ICD-10: I10 [...] findings ICD-9: V70.0 ICD-10: Z00.01 04/04/2015 Active Encounter for screening for malignant neoplasm of pros fung ICD-9: V76.44 ICD-10: Z12.5 02/26/2017 Active Idiopathic urticaria ICD-9: 708.1 ICD-10: L50.1 [...] R63.4 08/21/2017 Active Atherosclerotic heart disease of [place] coronary arter y without angina pectoris ICD-9: [...] Fill Instructions clonazepam 1 mg tablet RxNorm: 864461 TAKE 1 TABLET BY MOUTH EV SUSAN AM 09/23/2019 10/22/2019 Active clonazepam 1 mg tablet RxNorm: 149769 TAKE 1 TABLET BY MOUTH EV SUSAN AM 08/21/2019 09/22/2019 Inactive Singulair 10 mg tablet RxNorm: 793859 TABLET(S) 1 TABLET(S) PO QD 1 10/11/2019 Active Flagyl 500 mg tablet RxNorm: 073948 1 Tablet(s) PO TID 05/26/2019 Inactive clonazepam 1 mg tablet RxNorm: 349864 TAKE 1 TABLET BY MOUTH EV SUSAN MORNING 05/23/2019 06/21/2019 Inactive pravastatin 20 mg tablet RxNorm: 141970 1 Tablet(s) PO QD 04/14/2019 10/10/2019 Active Needs updated fasting labs Singulair 10 mg tablet RxNorm: 330639 Tablet(s) 1 TABLET(S) PO QD 0 04/14/2019 07/12/2019 Inactive clonazepam 1 mg tablet RxNorm: 817763 1 Tablet(s) PO QAM 02/21/2019 0 05/23/2019 Inactive Bevespi Aerosphere 9 mcg-4.8 mcg HFA aerosol inhaler RxNorm: 3823346 2 Puff(s) INH BID 02/19/2019 No Stop Date Active ProAir HFA 90 mcg/actuation aerosol inhaler RxNorm: 827278 2 Puff(s) INH Q4H as needed 02/19/2019 09/24/2019 Inactive metoprolol tartrate 25 mg tablet RxNorm: 422836 1/2 Tablet(s) PO BI D 02/18/2019 05/18/2019 Inactive pravastatin 20 mg tablet RxNorm: 939050 1 Tablet(s) PO QD Needs updated fasting labs 01/13/2019 04/14/2019 Inactive Needs updated fa sting labs Singulair 10 mg tablet RxNorm: 873981 Tablet(s) 1 TABLET(S) PO QD 0 01/13/2019 04/12/2019 Inactive Plavix 75 mg tablet RxNorm: 570549 Tablet(s) 1 TABLET(S) PO QD 04/201906/20/2019 Inactive [SAVINGS FOR NON-COVERED SHANDA -- BIN:530272, PCN: ASPROD1, Group: XXXXX, ID# [id number], Questions: . THIS IS NOT INSURANCE.] Singulair 10 mg tablet RxNorm: 452684 1 TABLET(S) PO QD 10/29/2018 Inactive primidone 50 mg tablet RxNorm: 713711 2 TABLET(S) PO BI D TAKE 2 TABLETS BY MOUTH EVERY NIGHT AT BEDTIME 10/07/2018 01/12/2019 Inactive Patient requests 90 days supply pravastatin 20 mg tablet RxNorm: 422410 1 TABLET(S) PO QD 09/23/2018 01/12/2019 Inactive clonazepam 1 mg tablet RxNorm: 272098 1 Tablet(s) PO QAM 09/19/2018 0 12/17/2018 Inactive primidone 50 mg tablet RxNorm: 369772 TABLET(S) TAKE 2 TABLETS BY MOUTH EVERY NIGHT AT BEDTIME 09/18/2018 01/12/2019 Inactive ciprofloxacin 0.2 % ear drops in a dropperette RxNorm: 74600 6 2 Drop(s) left otic (ear) BID 09/03/2018 09/09/2018 Inactive primidone 50 mg tablet RxNorm: 627256 2 Tablet(s) PO BI D TAKE 2 TABLETS BY MOUTH EVERY NIGHT AT BEDTIME 08/26/2018 10/06/2018 Inactive Ambien 5 mg tablet RxNorm: 622386 TAKE 1 TABLET BY MOUTH EVERY NIGHT AT BEDTIME 08/05/2018 09/03/2018 Inactive Singulair 10 mg tablet RxNorm: 357544 1 TABLET(S) PO QD 07/23/2018 Inactive clonazepam 1 mg tablet RxNorm: 172321 TAKE 1 TABLET BY MOUTH EV SUSAN MORNING 07/23/2018 08/21/2018 Inactive Plavix 75 mg tablet RxNorm: 702635 1 TABLET(S) PO QD 07/04/201812/22 Inactive [SAVINGS FOR NON-COVERED DRUGS -- BIN:00 3585, PCN: ASPROD1, Group: XXXXX, ID# [id number], Questions: . THIS IS NOT INSURANCE.] clonazepam 1 mg tablet RxNorm: 876448 TAKE 1 TABLET BY MOUTH EV SUSAN MORNING 06/25/2018 07/23/2018 Inactive clonazepam 1 mg tablet RxNorm: 725135 TAKE 1 TABLET BY MOUTH EV SUSAN MORNING 05/23/2018 06/21/2018 Inactive primidone 50 mg tablet RxNorm: 238784 Tablet(s) TAKE 2 TABLETS BY MOUTH EVERY NIGHT AT BEDTIME 05/16/2018 08/25/2018 Inactive oxycodone-acetaminophen 7.5 mg-325 mg tablet RxNorm: 2862680 1-2 Tablet(s) PO TID as needed 04/25/2018 05/24/2018 Inactive Singulair 10 mg tablet RxNorm: 865584 1 Tablet(s) PO QD 04/25/2018 Inactive Medrol (Jose) 4 mg tablets in a dose pack RxNorm: 199688 Tablet(s) PO take as directed 04/25/2018 09/02/2018 Inactive clonazepam 1 mg tablet RxNorm: 864175 TAKE 1 TABLET BY MOUTH EV SUSAN MORNING 04/24/2018 05/22/2018 Inactive Plavix 75 mg tablet RxNorm: 340917 1 TABLET(S) PO QD 04/04/201807/02 Inactive [SAVINGS FOR NON-COVERED DRUGS -- BIN:00 3589, PCN: ASPROD1, Group: XXXXX, ID# [id number], Questions: . THIS IS NOT INSURANCE.] pravastatin 20 mg tablet RxNorm: 533502 1 Tablet(s) PO QD 03/21/2018 09/16/2018 Inactive ProAir HFA 90 mcg/actuation aerosol inhaler RxNorm: 868161 2 Puff(s) INH Q4H as needed 03/18/2018 03/17/2018 Inactive tamsulosin 0.4 mg capsule RxNorm: 674274 1 CAPSULE(S) PO QD 018 01/12/2019 Inactive clonazepam 1 mg tablet RxNorm: 026288 1 Tablet(s) PO QAM 02/25/2018 0 04/25/2018 Inactive tamsulosin 0.4 mg capsule RxNorm: 691048 1 Capsule(s) PO QD 018 03/13/2018 Inactive tamsulosin 0.4 mg capsule RxNorm: 070735 1 Capsule(s) PO QD 018 02/03/2018 Inactive tamsulosin 0.4 mg capsule RxNorm: 640918 1 Capsule(s) PO QD 018 02/12/2018 Inactive Ambien 5 mg tablet RxNorm: 340824 Tablet(s) TAKE 1 TAB LET BY MOUTH EVERY NIGHT AT BEDTIME 01/24/2018 08/05/2018 Inactive primidone 50 mg tablet RxNorm: 347525 Tablet(s) TAKE 2 TABLETS BY MOUTH EVERY NIGHT AT BEDTIME 01/18/2018 05/16/2018 Inactive cyclobenzaprine 10 mg tablet RxNorm: 894614 1 Tablet(s) PO TID as needed for muscle spasm 01/11/2018 02/09/2018 Inactive [SAVINGS FOR NON -COVERED DRUGS -- BIN:177513, PCN: ASPROD1, Group: XXXXX, ID# [id number], Questions: . THIS IS NOT INSURANCE.] clonazepam 1 mg tablet RxNorm: 387864 1 Tablet(s) PO QAM 12/24/2017 0 02/21/2018 Inactive prednisone 20 mg tablet RxNorm: 174186 1 Tablet(s) PO QD 11/06/2017 0 11/10/2017 Inactive EpiPen 2-Jose 0.3 mg/0.3 mL injection, auto-injector RxNorm: 685402 1 Unit Dose IM as needed 11/06/2017 09/24/2019 Inactive ProAir HFA 90 mcg/actuation aerosol inhaler RxNorm: 532839 2 Puff(s) INH Q4H as needed 10/30/2017 03/17/2018 Inactive primidone 50 mg tablet RxNorm: 615772 TAKE 2 TABLETS BY MOUTH EVERY NIGHT AT BEDTIME 10/15/2017 01/17/2018 Inactive Plavix 75 mg tablet RxNorm: 350361 1 Tablet(s) PO QD 10/01/201703/29 Inactive [SAVINGS FOR NON-COVERED DRUGS -- BIN:00 3585, PCN: ASPROD1, Group: XXXXX, ID# [id number], Questions: . THIS IS NOT INSURANCE.] clonazepam 1 mg tablet RxNorm: 508892 1 Tablet(s) PO QAM 09/19/2017 0 12/16/2017 Inactive primidone 50 mg tablet RxNorm: 802902 2 Tablet(s) PO QHS 08/29/2017 0 01/18/2018 Inactive oxycodone-acetaminophen 7.5 mg-325 mg tablet RxNorm: 8590061 1-2 Tablet(s) PO TID as needed 08/22/2017 09/19/2017 Inactive pravastatin 20 mg tablet RxNorm: 866906 1 Tablet(s) PO QD 08/21/2017 03/21/2018 Inactive carvedilol 3.125 mg tablet RxNorm: 607419 1 Tablet(s) P O BID to replace 6.25mg dose 08/21/2017 09/02/2017 Inactive primidone 50 mg tablet RxNorm: 389309 TAKE 2 TABLETS BY MOUTH EVERY NIGHT AT BEDTIME 06/18/2017 08/28/2017 Inactive clonazepam 1 mg tablet RxNorm: 216130 1 Tablet(s) PO QAM 06/04/2017 1 11/02/2016 Inactive Plavix 75 mg tablet RxNorm: 312542 1 Tablet(s) PO QD 04/10/201710/01 Inactive [SAVINGS FOR NON-COVERED DRUGS -- BIN:00 3585, PCN: ASPROD1, Group: XXXXX, ID# [id number], Questions: . THIS IS NOT INSURANCE.] pravastatin 20 mg tablet RxNorm: 176310 1 Tablet(s) PO QD 02/26/2017 08/24/2017 Inactive carvedilol 3.125 mg tablet RxNorm: 817593 1 Tablet(s) P O BID to replace 6.25mg dose 02/26/2017 08/21/2017 Inactive Ultram 50 mg tablet RxNorm: 897075 TAKE 1 TO 2 TABLETS BY MOUTH THREE TIMES DAILY NEEDED FOR PAIN 02/26/2017 03/07/2017 Inactive pravastatin 20 mg tablet RxNorm: 946410 1 Tablet(s) PO QD 02/26/2017 08/21/2017 Inactive carvedilol 3.125 mg tablet RxNorm: 412253 1 Tablet(s) P O BID to replace 6.25mg dose 02/26/2017 08/20/2017 Inactive clonazepam 0.5 mg tablet RxNorm: 568116 1 Tablet(s) PO QAM 02/14/20 17 02/13/2017 Inactive primidone 50 mg tablet RxNorm: 769070 1 Tablet(s) PO QHS 02/13/2017 0 05/01/2017 Inactive clonazepam 1 mg tablet RxNorm: 161433 1 Tablet(s) PO QAM 02/13/2017 0 05/13/2017 Inactive primidone 50 mg tablet RxNorm: 105663 1/2 Tablet(s) PO QD for 7 days then increase to 1 tablet at bedtime 01/09/2017 02/12/2017 Inactive pravastatin 20 mg tablet RxNorm: 412553 Tablet(s) 1 TABLET(S) PO QD 11/29/2016 02/25/2017 Inactive clonazepam 1 mg tablet RxNorm: 025713 1 Tablet(s) PO BID replac es 0.5mg dose 11/23/2016 01/08/2017 Inactive pravastatin 20 mg tablet RxNorm: 588174 1 TABLET(S) PO QD 11/17/2016 11/28/2016 Inactive Ambien 5 mg tablet RxNorm: 014997 TAKE 1 TABLET BY MOUTH EVERY NIGHT AT BEDTIME 11/17/2016 12/14/2016 Inactive clonazepam 0.5 mg tablet RxNorm: 294539 TAKE 1 TABLET BY MOUTH TWICE DAILY 11/17/2016 11/22/2016 Inactive Plavix 75 mg tablet RxNorm: 505388 1 Tablet(s) PO QD 11/06/201604/09 Inactive [SAVINGS FOR NON-COVERED DRUGS -- BIN:00 3585, PCN: ASPROD1, Group: XXXXX, ID# [id number], Questions: . THIS IS NOT INSURANCE.] Plavix 75 mg tablet RxNorm: 995063 1 Tablet(s) PO QD 08/28/201611/05 Inactive [SAVINGS FOR NON-COVERED DRUGS -- BIN: 3585, PCN: ASPROD1, Group: XXXXX, ID# [id number], Questions: . THIS IS NOT INSURANCE.] Lidoderm 5 % topical patch RxNorm: 5120599 Application T OP 2 patches for 12hrs then off for 12hrs 08/28/2016 08/27/2016 Inactive clonazepam 0.5 mg tablet RxNorm: 453165 1 Tablet(s) PO BID 08/07/20 16 11/22/2016 Inactive pravastatin 20 mg tablet RxNorm: 412291 1 Tablet(s) PO QD 08/07/2016 11/04/2016 Inactive cyclobenzaprine 10 mg tablet RxNorm: 985129 1 Tablet(s) PO TID as needed for muscle spasm 08/07/2016 09/05/2016 Inactive [SAVINGS FOR NON -COVERED DRUGS -- BIN:075926, PCN: ASPROD1, Group: XXXXX, ID# [id number], Questions: . THIS IS NOT INSURANCE.] Plavix 75 mg tablet RxNorm: 103349 1 Tablet(s) PO QD 08/07/201608/27 Inactive [SAVINGS FOR NON-COVERED DRUGS -- BIN:00 3585, PCN: ASPROD1, Group: XXXXX, ID# [id number], Questions: . THIS IS NOT INSURANCE.] carvedilol 3.125 mg tablet RxNorm: 292631 1 Tablet(s) P O BID to replace 6.25mg dose 08/07/2016 02/02/2017 Inactive clonazepam 0.5 mg tablet RxNorm: 142458 1 Tablet(s) PO BID 07/04/2008/07/2016 Inactive Plavix 75 mg tablet RxNorm: 510284 1 TABLET(S) PO QD 06/20/201608/06 Inactive [SAVINGS FOR NON-COVERED DRUGS -- BIN:00 3585, PCN: ASPROD1, Group: XXXXX, ID# [id number], Questions: . THIS IS NOT INSURANCE.] clonazepam 0.5 mg tablet RxNorm: 119223 1 Tablet(s) PO BID 06/09/20 16 07/03/2016 Inactive pravastatin 20 mg tablet RxNorm: 072233 1 Tablet(s) PO QD 05/23/2016 08/06/2016 Inactive pravastatin 20 mg tablet RxNorm: 571022 1 Tablet(s) PO QD 05/23/2016 05/22/2016 Inactive carvedilol 3.125 mg tablet RxNorm: 203469 1 Tablet(s) P O BID to replace 6.25mg dose 05/10/2016 08/06/2016 Inactive carvedilol 3.125 mg tablet RxNorm: 665079 1 Tablet(s) P O BID to replace 6.25mg dose 05/10/2016 05/09/2016 Inactive clonazepam 0.5 mg tablet RxNorm: 350252 1 Tablet(s) PO BID 05/10/20 16 06/08/2016 Inactive carvedilol 6.25 mg tablet RxNorm: 836631 1 Tablet(s) PO QD 05/10/20 16 05/10/2016 Inactive simvastatin 40 mg tablet RxNorm: 722524 1 TABLET(S) PO QD 04/10/2016 05/09/2016 Inactive Medrol (Jose) 4 mg tablets in a dose pack RxNorm: 638989 Tablet(s) PO As Directed 01/13/2016 05/09/2016 Inactive cyclobenzaprine 10 mg tablet RxNorm: 787109 1 TABLET(S) PO TID NEEDED FOR SPASM 01/11/2016 03/10/2016 Inactive [SAVINGS FOR NON -COVERED DRUGS -- BIN:172625, PCN: ASPROD1, Group: XXXXX, ID# [id number], Questions: . THIS IS NOT INSURANCE.] Plavix 75 mg tablet RxNorm: 759960 1 Tablet(s) PO QD 12/30/201506/19 Inactive [SAVINGS FOR NON-COVERED DRUGS -- BIN: 3585, PCN: ASPROD1, Group: XXXXX, ID# [id number], Questions: . THIS IS NOT INSURANCE.] Ambien 5 mg tablet RxNorm: 538394 TAKE 1 TABLET BY MOUTH EVERY DAY AT BEDTIME 11/15/2015 11/17/2016 Inactive simvastatin 40 mg tablet RxNorm: 518641 1 Tablet(s) PO QD 10/11/2015 01/12/2019 Inactive simvastatin 40 mg tablet RxNorm: 902006 1 Tablet(s) PO QD 10/08/2015 10/10/2015 Inactive Ambien 5 mg tablet RxNorm: 244221 TAKE 1 TABLET BY MOUTH EVERY NIGHT AT BEDTIME 07/27/2015 11/15/2015 Inactive Plavix 75 mg tablet RxNorm: 951884 1 Tablet(s) PO QD 06/28/201512/29 Inactive [SAVINGS FOR NON-COVERED DRUGS -- BIN: 3585, PCN: ASPROD1, Group: XXXXX, ID# [id number], Questions: . THIS IS NOT INSURANCE.] Coreg 6.25 mg tablet RxNorm: 257278 1 TABLET(S) PO BID 04/19/2015 Inactive [SAVINGS FOR NON-COVERED DRUGS -- BIN:00 3585, PCN: ASPROD1, Group: XXXXX, ID# [id number], Questions: . THIS IS NOT INSURANCE.] simvastatin 40 mg tablet RxNorm: 072577 1 Tablet(s) PO QD 04/05/2015 04/04/2015 Inactive simvastatin 40 mg tablet RxNorm: 405264 1 Tablet(s) PO QD 04/05/2015 10/11/2015 Inactive Plavix 75 mg tablet RxNorm: 003832 1 TABLET(S) PO QD 03/22/201504/20 Inactive [SAVINGS FOR NON-COVERED DRUGS -- BIN:00 3585, PCN: ASPROD1, Group: XXXXX, ID# [id number], Questions: . THIS IS NOT INSURANCE.] Plavix 75 mg tablet RxNorm: 351968 1 Tablet(s) PO QD 03/22/201506/28 Inactive [SAVINGS FOR NON-COVERED DRUGS -- BIN:00 3585, PCN: ASPROD1, Group: XXXXX, ID# [id number], Questions: . THIS IS NOT INSURANCE.] Ambien 5 mg tablet RxNorm: 938361 1 Tablet(s) PO QHS 12/17/201407/28 Inactive [SAVINGS FOR NON-COVERED DRUGS -- BIN:00 3585, PCN: ASPROD1, Group: XXXXX, ID# [id number], Questions: . THIS IS NOT INSURANCE.] Coreg 6.25 mg tablet RxNorm: 638741 1 Tablet(s) PO BID 12/17/2014 Inactive [SAVINGS FOR NON-COVERED DRUGS -- BIN:00 3585, PCN: ASPROD1, Group: XXXXX, ID# [id number], Questions: . THIS IS NOT INSURANCE.] Plavix 75 mg tablet RxNorm: 089374 1 Tablet(s) PO QD 12/17/201403/16 Inactive [SAVINGS FOR NON-COVERED DRUGS -- BIN:00 3585, PCN: ASPROD1, Group: XXXXX, ID# XXXXXXX, Questions: . THIS IS NOT INSURANCE.] cyclobenzaprine 10 mg tablet RxNorm: 768370 1 Tablet(s) PO TID as needed for spasm 12/17/2014 03/16/2015 Inactive [SAVINGS FOR NON -COVERED DRUGS -- BIN:035770, PCN: ASPROD1, Group: XXXXX, ID# [id number], Questions: . THIS IS NOT INSURANCE.] Coreg 6.25 mg tablet RxNorm: 500662 1 Tablet(s) PO BID 10/21/201409/2014 Inactive [SAVINGS FOR NON-COVERED DRUGS -- BIN:00 3585, PCN: ASPROD1, Group: XXXXX, ID# [id number], Questions: . THIS IS NOT INSURANCE.] Plavix 75 mg tablet RxNorm: 836048 1 Tablet(s) PO QD 10/21/201412/16 Inactive [SAVINGS FOR NON-COVERED DRUGS -- BIN:00 3585, PCN: ASPROD1, Group: XXXXX, ID# [id number], Questions: . THIS IS NOT INSURANCE.] Plavix 75 mg tablet RxNorm: 370399 1 Tablet(s) PO QD Ne eds routine check up--last seen March 2012 09/21/2014 10/20/2014 Inactive [SAVINGS FOR UNINSURED PATIENTS -- BIN:238061, PCN: ASPROD1, Group: AME08, ID# [id number], Process claim through MedImpact, for questions: . THIS IS NOT INSURANCE.] Ambien 5 mg tablet RxNorm: 515090 1 Tablet(s) PO [facility] 09/21/201412/16 Inactive [SAVINGS FOR UNINSURED PATIENTS -- BIN:0 77686, PCN: ASPROD1, Group: AME08, ID# [id number], Process claim through MedImpact, for questions: . THIS IS NOT INSURANCE.] Coreg 6.25 mg tablet RxNorm: 684098 1 Tablet(s) PO BID 09/21/201411/2014 Inactive [SAVINGS FOR UNINSURED PATIENTS -- BIN:0 18058, PCN: ASPROD1, Group: AME08, ID# [id number], Process claim through MedImpact, for questions: . THIS IS NOT INSURANCE.] Plavix 75 mg tablet RxNorm: 224809 1 Tablet(s) PO QD Ne eds routine check up--last seen March 2012 08/04/2014 09/02/2014 Inactive [SAVINGS FOR UNINSURED PATIENTS -- BIN:859958, PCN: ASPROD1, Group: AME08, ID# [id number], Process claim through EmergenSee, for questions: . THIS IS NOT INSURANCE.] Plavix 75 mg tablet RxNorm: 925033 1 Tablet(s) PO QD Ne eds routine check up--last seen March 2012 08/03/2014 08/03/2014 Inactive Protonix 40 mg tablet,delayed release RxNorm: 441696 1 Tablet(s ) PO QD 06/08/2014 02/17/2019 Inactive [SAVINGS FOR UNINSUR ED PATIENTS -- BIN:946068, PCN: ASPROD1, Group: AME08, ID# [id number], Process claim through HistoryFileact, for questions: . THIS IS NOT INSURANCE.] hydrocodone 10 mg-acetaminophen 325 mg tablet RxNorm: 040105 1 Tablet(s) PO BID as needed for pain 02/18/2014 03/31/2015 Inactive Coreg 6.25 mg tablet RxNorm: 193884 1 Tablet(s) PO BID 02/02/2014 Inactive Protonix 40 mg granules delayed-release packet RxNorm: 882271 1 Tablet(s) PO QD 01/13/2014 06/08/2014 Inactive Plavix 75 mg tablet RxNorm: 722855 1 Tablet(s) PO QD Ne eds routine check up--last seen March 2012 01/13/2014 08/02/2014 Inactive Plavix 75 mg tablet RxNorm: 078088 1 Tablet(s) PO QD Ne eds routine check up--last seen March 2012 12/09/2013 01/07/2014 Inactive Coreg 6.25 mg tablet RxNorm: 507012 1 Tablet(s) PO BID 12/09/2013 Inactive Cymbalta 60 mg capsule,delayed release RxNorm: 507343 1 Capsule (s) PO QD 10/31/2013 01/12/2014 Inactive Coreg 6.25 mg tablet RxNorm: 094161 1 Tablet(s) PO BID 10/31/2013 Inactive Plavix 75 mg tablet RxNorm: 171240 1 Tablet(s) PO QD Ne eds routine check up--last seen March 2012 10/31/2013 11/29/2013 Inactive Coreg 6.25 mg tablet RxNorm: 128894 1 Tablet(s) PO BID 10/31/2013 Inactive atorvastatin 40 mg tablet RxNorm: 645461 1 Tablet(s) PO QD 10/31/19 14 03/31/2015 Inactive Plavix 75 mg tablet RxNorm: 949457 1 Tablet(s) PO QD Ne eds routine check up--last seen March 2012 09/23/2013 10/30/2013 Inactive cyclobenzaprine 10 mg tablet RxNorm: 876668 1 Tablet(s) PO TID as needed for spasm 09/23/2013 No Stop Date Active cyclobenzaprine 10 mg tablet RxNorm: 690598 1 Tablet(s) PO TID as needed for spasm 07/04/2013 09/22/2013 Inactive atorvastatin 40 mg tablet RxNorm: 495820 1 Tablet(s) PO QD 06/23/20 13 10/30/2013 Inactive atorvastatin 40 mg tablet RxNorm: 730503 1 Tablet(s) PO QD 04/22/20 13 06/22/2013 Inactive Nucynta 50 mg tablet RxNorm: 409465 1-2 Tablet(s) PO Q6H as nee ded for pain 01/01/2013 01/12/2014 Inactive Ambien 5 mg tablet RxNorm: 739057 1 Tablet(s) PO QHS 10/16/201201/13 Inactive Plavix 75 mg tablet RxNorm: 666033 1 Tablet(s) PO QD 09/19/201209/13 Inactive Protonix 40 mg tablet,delayed release RxNorm: 013014 1 Tablet(s ) PO QD 09/19/2012 09/18/2012 Inactive simvastatin 40 mg tablet RxNorm: 957450 1 Tablet(s) PO QD 09/19/2012 02/23/2013 Inactive Protonix 40 mg tablet,delayed release RxNorm: 922490 1 Tablet(s ) PO QD 09/19/2012 09/13/2013 Inactive Ultram 50 mg tablet RxNorm: 690107 1-2 Tablet(s) PO QID as need ed for pain 09/19/2012 02/26/2017 Inactive propranolol 80 mg tablet RxNorm: 764304 1 Tablet(s) PO QHS 09/19/19 13 09/18/2012 Inactive Cymbalta 60 mg capsule,delayed release RxNorm: 797597 1 Capsule (s) PO QD 09/19/2012 09/18/2012 Inactive Cymbalta 60 mg capsule,delayed release RxNorm: 816082 1 Capsule (s) PO QD 09/19/2012 03/17/2013 Inactive propranolol 80 mg tablet RxNorm: 448875 1 Tablet(s) PO QHS 09/19/19 13 02/23/2013 Inactive hydrocodone-acetaminophen 10 mg-325 mg tablet RxNorm: 045857 2 1-2 Tablet(s) PO QID 07/25/2012 02/23/2013 Inactive Ambien 10 mg tablet RxNorm: 113645 1 Tablet(s) PO QHS as needed for sleep 07/10/2012 01/27/2013 Inactive propranolol 80 mg tablet RxNorm: 094920 1 Tablet(s) PO QHS 05/13/20 12 09/18/2012 Inactive hydrocodone-acetaminophen 10 mg-325 mg tablet RxNorm: 642123 2 1-2 Tablet(s) PO QID 05/02/2012 No Stop Date Active Restoril 15 mg Cap RxNorm: 669893 1-2 Capsule(s) PO QHS 05/02/2012 Inactive propranolol 80 mg tablet RxNorm: 230398 1 Tablet(s) PO QHS 05/02/20 12 05/12/2012 Inactive Chantix Starting Month Box 0.5 mg (11)-1 mg (42) Tabs in a Dose Pack RxNorm: 565407 Tablet(s) PO As Directed 04/01/2012 01/27/2013 Inactive simvastatin 40 mg tablet RxNorm: 672602 1 Tablet(s) PO QD 03/28/2012 09/18/2012 Inactive simvastatin 40 mg Tab RxNorm: 105402 1 Tablet(s) PO QD 03/22/201207/2012 Inactive Effient 10 mg Tab RxNorm: 746922 1 Tablet(s) PO QD 03/22/2012 012 Inactive Prilosec 40 mg Capsule, delayed release RxNorm: 112135 1 Capsul e(s) PO QD 03/22/2012 09/18/2012 Inactive Prilosec 40 mg Capsule, delayed release RxNorm: 611214 1 Capsul e(s) PO QD 03/19/2012 03/21/2012 Inactive Cymbalta 60 mg capsule,delayed release RxNorm: 056556 1 Capsule (s) PO QD 03/04/2012 08/30/2012 Inactive hydrocodone-acetaminophen 10 mg-325 mg Tab RxNorm: 6374125 1-2 T ablet(s) PO QID 01/23/2012 No Stop Date Active Cymbalta 60 mg Capsule, delayed release RxNorm: 682358 1 Capsul e(s) PO QD 01/23/2012 03/03/2012 Inactive Cipro 500 mg Tab RxNorm: 496149 1 Tablet(s) PO BID 12/20/2011 012 Inactive Cymbalta 60 mg Capsule, delayed release RxNorm: 672085 1 Capsul e(s) PO QD 12/13/2011 01/22/2012 Inactive nortriptyline 75 mg Cap RxNorm: 833354 1 Capsule(s) PO QHS 11/29/1904/02/2012 Inactive Cymbalta 60 mg Cap RxNorm: 802646 1 Capsule(s) PO QD 10/24/201112/11 Inactive propranolol 80 mg Tab RxNorm: 434671 1 Tablet(s) PO QHS 10/24/2011 Inactive hydrocodone-acetaminophen 10 mg-325 mg Tab RxNorm: 9633671 1-2 T ablet(s) PO QID 09/29/2011 No Stop Date Active hydrocodone-acetaminophen 10 mg-325 mg Tab RxNorm: 7515355 1-2 T ablet(s) PO QID 07/25/2011 No Stop Date Active hydrocodone-acetaminophen 10 mg-325 mg Tab RxNorm: 6202346 1-2 T ablet(s) PO QID 02/14/2011 No Stop Date Active Prilosec 40 mg Cap RxNorm: 539504 1 Capsule(s) PO 01/03/2011 04/28/20 19 Inactive nortriptyline 75 mg Cap RxNorm: 997895 1 Capsule(s) PO QHS 01/04/20 11 07/01/2011 Inactive Neurontin 600 mg Tab RxNorm: 463797 1 Tablet(s) PO QHS 12/08/201011/2011 Inactive hydrocodone-acetaminophen 5 mg-500 mg Tab RxNorm: 294072 2 Tablet(s) PO Q4-6H prn 10/20/2010 01/08/2011 Inactive Diltzac ER 240 mg Cap RxNorm: 782389 1 Capsule(s) PO QD 07/14/2010 Inactive Nortriptyline 75 mg Cap RxNorm: 974253 1 Capsule(s) PO QHS 05/09/20 10 01/12/2019 Inactive Neurontin 600 mg Tab RxNorm: 351988 1 Tablet(s) PO QD 03/17/201012/17 Inactive Nortriptyline 75 mg Cap RxNorm: 345880 1 Capsule(s) PO 01/12/2010 Inactive Nortriptyline 50 mg Cap RxNorm: 829266 1 Capsule(s) PO QHS 01/13/20 10 01/11/2010 Inactive Diltzac ER 240 mg Cap RxNorm: 142319 1 Capsule(s) PO QD 12/06/2009 Inactive aspirin 81 mg Tab RxNorm: 521176 1 Tablet(s) PO QD No Start Date Active Vitamin D3 2,000 unit tablet RxNorm: 570224 1 Tablet(s) PO QD No Star t Date Active Lyrica 75 mg capsule RxNorm: 539151 1 Capsule(s) PO QHS No Start Date Active csxxgqxwv-lapetlein-ciqnlp complex no.233 oral RxNorm: oral No Start Date Active primidone 50 mg tablet RxNorm: 558428 2 Tablet(s) PO BID No Start Date Active Prilosec 40 mg Capsule, delayed release RxNorm: 376542 1 Capsul e(s) PO QD No Start Date 03/18/2012 Inactive Prilosec 20 mg Cap RxNorm: 271218 1 Capsule(s) PO QHS No Start Date 0 01/02/2011 Inactive primidone 50 mg tablet RxNorm: 148733 1/2 Tablet(s) PO QHS for 1week then go full tab if needed No Start Date 05/01/2017 Inactive ProAir HFA 90 mcg/actuation aerosol inhaler RxNorm: 072845 2 Puff(s) INH Q4H as needed No Start Date 10/29/2017 Inactive clonazepam 0.5 mg tablet RxNorm: 333295 1/2 Tablet(s) PO BID No Sta rt Date 02/12/2017 Inactive Pepcid AC 10 mg Tab RxNorm: 921283 1 Tablet(s) PO QAM No Start Date 0 02/19/2011 Inactive Coreg Oral RxNorm: Oral No Start Date 01/12/2014 Inactive primidone 50 mg tablet RxNorm: 850731 1/2 Tablet(s) PO QD for 7 days then increase to 1 tablet at bedtime No Start Date 01/08/2017 Inactive Medrol (Jose) 4 mg tablets in a dose pack RxNorm: 245891 Tablet(s) PO As Directed No Start Date 01/12/2016 Inactive Plavix 75 mg tablet RxNorm: 255731 1 Tablet(s) PO QD No Start Date Inactive cyclobenzaprine 10 mg tablet RxNorm: 012406 1 Tablet(s) PO TID as needed for spasm No Start Date 07/03/2013 Inactive Bevespi Aerosphere 9 mcg-4.8 mcg HFA aerosol inhaler RxNorm: 2366729 2 Puff(s) INH BID No Start Date 02/18/2019 Inactive tramadol 50 mg tablet RxNorm: 573832 1-2 Tablet(s) PO TID as ne eded for pain No Start Date 01/12/2019 Inactive clonazepam 1 mg tablet RxNorm: 730858 1 Tablet(s) PO QAM No Start D ate 09/18/2018 Inactive hydrocodone-acetaminophen 5 mg-500 mg Tab RxNorm: 465507 2 Tablet(s) PO Q4-6H prn No Start Date 10/19/2010 Inactive lisinopril 20 mg Tab RxNorm: 245282 1/2 Tablet(s) PO QD No Start Da te 03/12/2011 Inactive Protonix 40 mg tablet,delayed release RxNorm: 632360 1 Tablet(s ) PO QD No Start Date 06/07/2014 Inactive Lipitor Oral RxNorm: Oral No Start Date 01/12/2014 Inactive primidone 50 mg tablet RxNorm: 847578 2 Tablet(s) PO QAM and 1 tablet at HS No Start Date 02/17/2019 Inactive hydrocodone-acetaminophen 10 mg-325 mg Tab RxNorm: 1306082 1-2 T ablet(s) PO QID No Start Date 02/13/2011 Inactive Ultram 50 mg tablet RxNorm: 784262 1-2 Tablet(s) PO QID as need ed for pain No Start Date 09/18/2012 Inactive Effient 10 mg Tab RxNorm: 923487 1 Tablet(s) PO QD No Start Date 01/2012 Inactive Bevespi Aerosphere 9 mcg-4.8 mcg HFA aerosol inhaler RxNorm: 5820271 2 Puff(s) INH BID No Start Date 10/29/2017 Inactive Neurontin Oral RxNorm: Oral No Start Date 01/12/2010 Inactive primidone 50 mg tablet RxNorm: 918907 1 Tablet(s) PO QD No Start Da te 01/12/2019 Inactive Chantix Starting Month Box 0.5 mg (11)-1 mg (42) Tabs in a Dose Pack RxNorm: 664473 Tablet(s) PO No Start Date 03/31/2012 Inactive atenolol 25 mg Tab RxNorm: 930782 1 Tablet(s) PO QD No Start Date 02/2012 Inactive Neurontin 600 mg Tab RxNorm: 320360 1 Tablet(s) PO QD No Start Date 0 03/16/2010 Inactive Nucynta 50 mg tablet RxNorm: 621853 1-2 Tablet(s) PO Q6H as nee ded for pain No Start Date 12/31/2012 Inactive simvastatin 40 mg Tab RxNorm: 191017 1 Tablet(s) PO QD No Start Date 03/21/2012 Inactive Medication Administered No Medication Administered data Immunizations Vaccine Codes Date Status Influenza CVX: 135 07/04/2017 Complete Results Observation Observation Code Item Item Code Result Date S [facility] Location COMPLETE BLOOD COUNT [id number] WBC 4.9 10e9/L 09/04/20 18 Unknown COMPLETE BLOOD COUNT [id number] RBC 4.42 10e12/L 2017 Unknown COMPLETE BLOOD COUNT [id number] HEMOGLOBIN 13.4 g/dL 09/04/20 18 Unknown COMPLETE BLOOD COUNT [id number] HEMATOCRIT 40.5 % 09/04/20 18 Unknown COMPLETE BLOOD COUNT [id number] MCV 91.6 fL 8 Unknown COMPLETE BLOOD COUNT [id number] MCH 30.3 pg 8 Unknown COMPLETE BLOOD COUNT 4337261 MCHC 33.1 g/dL 8 Unknown COMPLETE BLOOD COUNT [id number] PLATELET COUNT 224 10e9/L Unknown COMPLETE BLOOD COUNT 6534700 Mean Plt Volume 9.9 fL Unknown COMPLETE BLOOD COUNT [id number] Neut Auto 60.8 % 8 Unknown COMPLETE BLOOD COUNT [id number] Lymph Auto 26.8 % 09/04/20 18 Unknown COMPLETE BLOOD COUNT 4720417 Garza Auto 10.4 % 8 Unknown COMPLETE BLOOD COUNT [id number] RDW 12.8 % 8 Unknown COMPLETE BLOOD COUNT 6030686 Eos Auto 1.6 % 8 Unknown COMPLETE BLOOD COUNT [id number] Baso Auto 0.4 % 8 Unknown COMPLETE BLOOD COUNT [id number] Neutrophil Abs 2.98 10e9/L Unknown COMPLETE BLOOD COUNT [id number] Lymphocyte Abs 1.31 10e9/L Unknown COMPLETE BLOOD COUNT [id number] Monocyte Abs 0.51 10e9/L 08/17 Unknown COMPLETE BLOOD COUNT [id number] Eosinophil Abs 0.08 10e9/L Unknown COMPLETE BLOOD COUNT [id number] RDW-SD 41.6 fL 8 Unknown COMPLETE BLOOD COUNT [id number] Basophil Abs 0.02 10e9/L 08/17 Unknown COMPREHENSIVE METABOLIC 18372 AST 16 U/L 2017 Unknown COMPREHENSIVE METABOLIC 56726 ALT 8 U/L 2017 Unknown COMPREHENSIVE METABOLIC 49074 BUN 12 mg/dL 2017 Unknown COMPREHENSIVE METABOLIC 23953 ALBUMIN 4.4 g/dL 2017 Unknown COMPREHENSIVE METABOLIC 32422 CHLORIDE 107 mmol/L 09/04 Unknown COMPREHENSIVE METABOLIC 47733 Bili Total 1.0 mg/dL 09/04 Unknown COMPREHENSIVE METABOLIC 24444 ALK PHOS 58 U/L 2017 Unknown COMPREHENSIVE METABOLIC 14699 SODIUM 142 mmol/L 09/04 Unknown COMPREHENSIVE METABOLIC 52852 CREATININE 0.97 mg/dL 08/17 Unknown COMPREHENSIVE METABOLIC 44193 CALCIUM 9.2 mg/dL 2017 Unknown COMPREHENSIVE METABOLIC 12248 POTASSIUM 4.6 mmol/L 09/04 Unknown COMPREHENSIVE METABOLIC 35140 Total Protein 6.5 g/dL Unknown COMPREHENSIVE METABOLIC 12559 Glucose 96 mg/dL 2017 Unknown COMPREHENSIVE METABOLIC 79607 Bicarbonate 29 mmol/L 08/17 Unknown COMPREHENSIVE METABOLIC 60633 AGAP 6 mmol/L 2017 Unknown LIPID GROUP 14323 Cholesterol 182 mg/dL 09/04/2018 Unkno wn LIPID GROUP 15258 Triglyceride 84 mg/dL 09/04/2018 Unkn own LIPID GROUP 15412 HDL CHOLESTEROL 76 mg/dL 09/04/2018 U nknown LIPID GROUP 31749 Chol/HDL Ratio 2.39 ratio 09/04/2018 U nknown LIPID GROUP 76946 NON-HDL Chol 106 mg/dL 09/04/2018 Unkn own LIPID GROUP 89194 LDL Cholesterol 89 mg/dL 09/04/2018 U nknown GFR CALC 0869525 GFR Non Afr Amr >60 mL/min 09/04/2018 Un known GFR CALC 3489580 GFR Afr Amr >60 mL/min 09/04/2018 Unknow n THYROID STIMULATING HORMONE 34839 TSH 0.713 uIU/mL 09/04/2018 Unknown PSA EQUIMOLAR BARBIE 55540 PSA Total 0.66 ng/mL 8 Unknown A FOOD C P 8184160 [place] Cl Class 0 11/17/2017 Unknown A FOOD C P [id number] [place] Ct <0.35 kU/L 11/17/2017 Unknow n A FOOD C P [id number] [place] Cl Class 0 11/17/2017 Unkn own A FOOD C P [id number] [place] Ct <0.35 kU/L 11/17/2017 Unk nown A FOOD C P [id number] [place] Cl Class 0 11/17/2017 Unkno wn A FOOD C P 3958375 Egg White Ct <0.35 kU/L 11/17/2017 Unkn own A FOOD C P [id number] Egg Yolk Cl Class 0 11/17/2017 Unknow n A FOOD C P 2203828 Egg Yolk Ct <0.35 kU/L 11/17/2017 Unkno wn A FOOD C P 7791339 [place] Milk Cl Class 0 11/17/2017 Unknow n A FOOD C P 4935977 Cow Milk Ct <0.35 kU/L 11/17/2017 Unkno wn A FOOD C P 5228046 Pe[place] Cl Class 0 11/17/2017 Unknown A FOOD C P [id number] Peanut Ct <0.35 kU/L 11/17/2017 Unknown A FOOD C P 4440060 [place] Cl Class 0 11/17/2017 Unknown A FOOD C P 2814845 [place] Ct <0.35 kU/L 11/17/2017 Unknown A FOOD C P 9140617 [place] Cl Class 0 11/17/2017 Unknown A FOOD C P 7501498 [place] Ct <0.35 kU/L 11/17/2017 Unknow n A FOOD C P 0388973 [place] Cl Class 0 11/17/2017 Unknown A FOOD C P 1807368 [place] Ct <0.35 kU/L 11/17/2017 Unknown A FOOD C P 5501480 Potato Cl Class 0 11/17/2017 Unknown A FOOD C P 7869463 Potato Ct <0.35 kU/L 11/17/2017 Unknown A FOOD C P 3043927 Beef Cl Class 2 11/17/2017 Unknown A FOOD C P 4104244 Beef Ct 0.88 kU/L 11/17/2017 Unknown A FOOD C P 3876304 [place] Cl Class 0 11/17/2017 Unknown A FOOD C P 2975279 [place] <0.35 kU/L 11/17/2017 Unknown A FOOD C P 1826430 [place] Cl Class 0 11/17/2017 Unknown A FOOD C P [id number] [place] Ct <0.35 kU/L 11/17/2017 Unknown A FOOD C P 0760234 [place] Cl Class 0 11/17/2017 Unknown A FOOD C P 0300373 [place] Ct <0.35 kU/L 11/17/2017 Unknown A FOOD C P [id number] [place] Cl Class 0 11/17/2017 Unkn own A FOOD C P [id number] [place] [facility] <0.35 kU/L 11/17/2017 Unk nown A FOOD C P [id number] [place] Cl Class 0 11/17/2017 Unknown A FOOD C P 3207389 [place] Ct <0.35 kU/L 11/17/2017 Unknown A FOOD C P [id number] [place] Cl Class 0 11/17/2017 Unknown A FOOD C P [id number] [place] Ct <0.35 kU/L 11/17/2017 Unknown A FOOD C P 6771781 [place] CL Class 0 11/17/2017 Unknown A FOOD C P 8954239 [place] <0.35 kU/L 11/17/2017 Unknown A FOOD C P 6258865 [place] Cl Class 0 11/17/2017 Unknown A FOOD C P 3512558 [place] Ct <0.35 kU/L 11/17/2017 Unknown A FOOD C P 2034058 Oat Cl Class 0 11/17/2017 Unknown A FOOD C P 5786771 Oat Ct <0.35 kU/L 11/17/2017 Unknown A FOOD C P 9076347 [place] Cl Class 0 11/17/2017 Unknown A FOOD C P 3972183 [place] Ct <0.35 kU/L 11/17/2017 Unknown A FOOD C P 1050130 [place] CL Class 0 11/17/2017 Un known A FOOD C P [id number] [place] Ct <0.35 kU/L 11/17/2017 U nknown A FOOD C P 1959805 [place] Cl Class 0 11/17/2017 Unknown A FOOD C P 0754402 [place] Ct <0.35 kU/L 11/17/2017 Unknown A FOOD C P 0333164 [place] Cl Class 0 11/17/2017 Unkn own A FOOD C P [id number] [place] Ct <0.35 kU/L 11/17/2017 Unk nown A NUTS PNL 7035502 [place] Cl Class 0 11/17/2017 Unknown A NUTS PNL 9209090 [place] Ct <0.35 kU/L 11/17/2017 Unknown A NUTS PNL [id number] [place] Cl Class 0 11/17/2017 Unk nown A NUTS PNL 6242508 [place] [facility] <0.35 kU/L 11/17/2017 Un known A NUTS PNL 6328696 [place] Cl Class 0 11/17/2017 Unkn own A NUTS PNL 1927722 [place] Ct <0.35 kU/L 11/17/2017 Unk nown A NUTS PNL 7450646 [place] Cl Class 0 11/17/2017 Unknown A NUTS PNL 3015191 [place] Ct <0.35 kU/L 11/17/2017 Unknown A NUTS PNL 1777669 [place] Cl Class 0 11/17/2017 Unknow n A NUTS PNL 4379598 [place] Ct <0.35 kU/L 11/17/2017 Unkno wn A NUTS PNL 4181688 [place] Cl Class 0 11/17/2017 Unkno wn A NUTS PNL 3272345 [place] Ct <0.35 kU/L 11/17/2017 Unkn own A NUTS PNL 9256692 [place] Cl Class 0 11/17/2017 Unknown A NUTS PNL 7376812 [place] Ct <0.35 kU/L 11/17/2017 Unknown A NUTS PNL 4403269 [place] Cl Class 0 11/17/2017 Unkno wn A NUTS PNL 7697405 [place] Ct <0.35 kU/L 11/17/2017 Unkn own A NUTS PNL 5912393 Allergen Interp See Note 11/17/2017 Un known A FRT/VG P [id number] [place] Cl Class 0 11/17/2017 Unkn own A FRT/VG P 4359094 [place] Ct <0.35 kU/L 11/17/2017 Unk nown A FRT/VG P 5464745 [place] Cl Class 0 11/17/2017 Unknown A FRT/VG P 4976579 [place] Ct <0.35 kU/L 11/17/2017 Unknown A FRT/VG P [id number] [place] Cl Class 0 11/17/2017 Unkn own A FRT/VG P [id number] [place] [facility] <0.35 kU/L 11/17/2017 Unk nown A FRT/VG P [id number] [place] Cl Class 0 11/17/2017 Unknown A FRT/VG P 5296971 [place] Ct <0.35 kU/L 11/17/2017 Unknown A FRT/VG P 9445889 [place] Cl Class 0 11/17/2017 Unknown A FRT/VG P 1024496 [place] Ct <0.35 kU/L 11/17/2017 Unknown A FRT/VG P [id number] [place] Cl Class 1 11/17/2017 Unknown A FRT/VG P 5502169 [place] Ct 0.48 kU/L 11/17/2017 Unknown A FRT/VG P 3765016 [place] Cl Class 0 11/17/2017 Unk nown A FRT/VG P 1407364 [place] Ct <0.35 kU/L 11/17/2017 Un known A FRT/VG P 7094804 [place] Cl Class 0 11/17/2017 Unk nown A FRT/VG P [id number] [place] Ct <0.35 kU/L 11/17/2017 Un known A FRT/VG P 4987489 [place] Cl Class 0 11/17/2017 Unknown A FRT/VG P 4640051 [place] Ct <0.35 kU/L 11/17/2017 Unknown A FRT/VG P 6664411 [place] Cl Class 0 11/17/2017 Unknown A FRT/VG P 8367882 [place] Ct <0.35 kU/L 11/17/2017 Unknown A FRT/VG P 5588204 [place] Cl Class 0 11/17/2017 Unkn own A FRT/VG P [id number] [place] Ct <0.35 kU/L 11/17/2017 Unk nown A FRT/VG P 8506326 [place] Cl Class 0 11/17/2017 Unkn own A FRT/VG P 6853914 [place]t [place] Ct <0.35 kU/L 11/17/2017 Unk nown THYROID STIMULATING HORMONE 77712 TSH 1.371 uIU/mL 09/03/2017 Unknown FREE T4 48187 T4 Free 1.26 ng/dL 09/03/2017 Unknown ASSAY TRIIODOTHYRONINE (T3) 19955 T3 Total 0.9 ng/mL Unknown COMPLETE BLOOD COUNT [id number] WBC 5.9 10e9/L 07/31/20 17 Unknown COMPLETE BLOOD COUNT [id number] RBC 4.64 10e12/L 2016 Unknown COMPLETE BLOOD COUNT 9585846 HEMOGLOBIN 14.2 g/dL 07/31/20 17 Unknown COMPLETE BLOOD COUNT 2656100 HEMATOCRIT 42.1 % 07/31/20 17 Unknown COMPLETE BLOOD COUNT 1760830 MCV 90.7 fL 7 Unknown COMPLETE BLOOD COUNT 5181727 MCH 30.6 pg 7 Unknown COMPLETE BLOOD COUNT 9507632 MCHC 33.7 g/dL 7 Unknown COMPLETE BLOOD COUNT 4032648 PLATELET COUNT 195 10e9/L Unknown COMPLETE BLOOD COUNT 4909286 Mean Plt Volume 10.0 fL Unknown COMPLETE BLOOD COUNT 4217303 Neut Auto 47.5 % 7 Unknown COMPLETE BLOOD COUNT 0587904 Lymph Auto 37.4 % 07/31/20 17 Unknown COMPLETE BLOOD COUNT 5556095 Garza Auto 11.7 % 7 Unknown COMPLETE BLOOD COUNT 1800327 Eos Auto 3.2 % 7 Unknown COMPLETE BLOOD COUNT 2204500 RDW 12.8 % 7 Unknown COMPLETE BLOOD COUNT 2188302 Baso Auto 0.2 % 7 Unknown COMPLETE BLOOD COUNT 9179221 Neutrophil Abs 2.80 10e9/L Unknown COMPLETE BLOOD COUNT 7147288 Lymphocyte Abs 2.21 10e9/L Unknown COMPLETE BLOOD COUNT 9070826 Monocyte Abs 0.69 10e9/L 07/18 Unknown COMPLETE BLOOD COUNT 8210395 Eosinophil Abs 0.19 10e9/L Unknown COMPLETE BLOOD COUNT 0354071 RDW-SD 41.6 fL 7 Unknown COMPLETE BLOOD COUNT [id number] Basophil Abs 0.01 10e9/L 07/18 Unknown LIPID GROUP 64839 Cholesterol 186 mg/dL 07/31/2017 Unkno wn LIPID GROUP 11213 Triglyceride 129 mg/dL 07/31/2017 Unkn own LIPID GROUP 38867 HDL CHOLESTEROL 79 mg/dL 07/31/2017 U nknown LIPID GROUP 52000 Chol/HDL Ratio 2.35 ratio 07/31/2017 U nknown LIPID GROUP 48355 NON-HDL Chol 107 mg/dL 07/31/2017 Unkn own LIPID GROUP 26275 LDL Cholesterol 81 mg/dL 07/31/2017 U nknown GFR CALC 2838029 GFR Non Afr Amr >60 mL/min 07/31/2017 Un known GFR CALC 3325655 GFR Afr Amr >60 mL/min 07/31/2017 Unknow n COMPREHENSIVE METABOLIC 33793 AST 19 U/L 2016 Unknown COMPREHENSIVE METABOLIC 40446 ALT 12 U/L 2016 Unknown COMPREHENSIVE METABOLIC 89131 BUN 15 mg/dL 2016 Unknown COMPREHENSIVE METABOLIC 19330 ALBUMIN 4.4 g/dL 2016 Unknown COMPREHENSIVE METABOLIC 04297 CHLORIDE 102 mmol/L 07/31 Unknown COMPREHENSIVE METABOLIC 57511 Bili Total 0.9 mg/dL 07/31 Unknown COMPREHENSIVE METABOLIC 14041 ALK PHOS 53 U/L 2016 Unknown COMPREHENSIVE METABOLIC 43044 SODIUM 138 mmol/L 07/31 Unknown COMPREHENSIVE METABOLIC 49167 CREATININE 1.06 mg/dL 07/18 Unknown COMPREHENSIVE METABOLIC 47137 CALCIUM 9.3 mg/dL 2016 Unknown COMPREHENSIVE METABOLIC 06536 POTASSIUM 4.0 mmol/L 07/31 Unknown COMPREHENSIVE METABOLIC 39167 Total Protein 6.8 g/dL Unknown COMPREHENSIVE METABOLIC 12150 Glucose 86 mg/dL 2016 Unknown COMPREHENSIVE METABOLIC 47714 Bicarbonate 28 mmol/L 07/18 Unknown COMPREHENSIVE METABOLIC 25132 AGAP 8 mmol/L 2016 Unknown COMPREHENSIVE METABOLIC 63980 AST 18 U/L 2015 Unknown COMPREHENSIVE METABOLIC 49845 ALT 9 U/L 2015 Unknown COMPREHENSIVE METABOLIC 48301 BUN 11 mg/dL 2015 Unknown COMPREHENSIVE METABOLIC 77801 ALBUMIN 4.2 g/dL 2015 Unknown COMPREHENSIVE METABOLIC 34254 CHLORIDE 104 mmol/L 05/19 Unknown COMPREHENSIVE METABOLIC 85786 Bili Total 1.2 mg/dL 05/19 Unknown COMPREHENSIVE METABOLIC 52398 ALK PHOS 54 U/L 2015 Unknown COMPREHENSIVE METABOLIC 71264 SODIUM 140 mmol/L 05/19 Unknown COMPREHENSIVE METABOLIC 29224 CREATININE 1.03 mg/dL 10/2015 Unknown COMPREHENSIVE METABOLIC 49250 CALCIUM 9.3 mg/dL 2015 Unknown COMPREHENSIVE METABOLIC 80441 POTASSIUM 4.9 mmol/L 05/19 Unknown COMPREHENSIVE METABOLIC 74711 Total Protein 6.7 g/dL Unknown COMPREHENSIVE METABOLIC 68936 Glucose 92 mg/dL 2015 Unknown COMPREHENSIVE METABOLIC 32041 Bicarbonate 28 mmol/L 10/2015 Unknown COMPREHENSIVE METABOLIC 85079 AGAP 8 mmol/L 2015 Unknown THYROID STIMULATING HORMONE 51909 TSH 1.545 uIU/mL 05/19/2016 Unknown GFR CALC 5214904 GFR Non Afr Amr >60 mL/min 05/19/2016 Un known GFR CALC 1827389 GFR Afr Amr >60 mL/min 05/19/2016 Unknow n VITAMIN B 12 31161 VITAMIN B12 298 pg/mL 05/19/2016 Unkn own COMPLETE BLOOD COUNT 9923156 WBC 5.2 10e9/L 05/19/20 16 Unknown COMPLETE BLOOD COUNT [id number] RBC 4.34 10e12/L 2015 Unknown COMPLETE BLOOD COUNT 5309223 HEMOGLOBIN 12.9 g/dL 05/19/20 16 Unknown COMPLETE BLOOD COUNT 2522634 HEMATOCRIT 38.9 % 05/19/20 16 Unknown COMPLETE BLOOD COUNT 5337814 MCV 89.6 fL 6 Unknown COMPLETE BLOOD COUNT 6980285 MCH 29.7 pg 6 Unknown COMPLETE BLOOD COUNT 1472955 MCHC 33.2 g/dL 6 Unknown COMPLETE BLOOD COUNT 7839640 PLATELET COUNT 200 10e9/L 10/2015 Unknown COMPLETE BLOOD COUNT 8269295 Mean Plt Volume 10.1 fL 10/2015 Unknown COMPLETE BLOOD COUNT 7108475 Neut Auto 45.4 % 6 Unknown COMPLETE BLOOD COUNT 9080248 Lymph Auto 35.6 % 05/19/20 16 Unknown COMPLETE BLOOD COUNT 0495887 Garza Auto 11.9 % 6 Unknown COMPLETE BLOOD COUNT 2244503 RDW 12.7 % 6 Unknown COMPLETE BLOOD COUNT 7455749 Eos Auto 6.7 % 6 Unknown COMPLETE BLOOD COUNT 6510280 Baso Auto 0.4 % 6 Unknown COMPLETE BLOOD COUNT 8552353 Neutrophil Abs 2.36 10e9/L Unknown COMPLETE BLOOD COUNT 5499085 Lymphocyte Abs 1.85 10e9/L Unknown COMPLETE BLOOD COUNT 0371558 Monocyte Abs 0.62 10e9/L 10/2015 Unknown COMPLETE BLOOD COUNT 6297811 Eosinophil Abs 0.35 10e9/L Unknown COMPLETE BLOOD COUNT 4090039 RDW-SD 40.6 fL 6 Unknown COMPLETE BLOOD COUNT 1632968 Basophil Abs 0.02 10e9/L 10/2015 Unknown LIPID GROUP 90518 Cholesterol 197 mg/dL 05/19/2016 Unkno wn LIPID GROUP 89697 Triglyceride 92 mg/dL 05/19/2016 Unkn own LIPID GROUP 17991 HDL CHOLESTEROL 58 mg/dL 05/19/2016 U nknown LIPID GROUP 24669 Chol/HDL Ratio 3.40 ratio 05/19/2016 U nknown LIPID GROUP 21091 NON-HDL Chol 139 mg/dL 05/19/2016 Unkn own LIPID GROUP 81623 LDL Cholesterol 121 mg/dL 05/19/2016 U nknown FREE T4 01862 T4 Free 1.19 ng/dL 05/19/2016 Unknown COMPREHENSIVE METABOLIC 84951 AST 19 U/L 2014 Unknown COMPREHENSIVE METABOLIC 17973 ALT 10 IU/L 2014 Unknown COMPREHENSIVE METABOLIC 32889 BUN 20 MG/DL 2014 Unknown COMPREHENSIVE METABOLIC 40445 ALBUMIN 4.4 GM/DL 2014 Unknown COMPREHENSIVE METABOLIC 51609 CHLORIDE 104 MMOL/L 04/05 Unknown COMPREHENSIVE METABOLIC 80585 BILI TOT 2.2 MG/DL 2014 Unknown COMPREHENSIVE METABOLIC 81574 ALK PHOS 55 U/L 2014 Unknown COMPREHENSIVE METABOLIC 12561 SODIUM 138 MMOL/L 04/05 Unknown COMPREHENSIVE METABOLIC 72098 CREATININE 1.04 MG/DL 03/18 Unknown COMPREHENSIVE METABOLIC 51123 CALCIUM 9.3 MG/DL 2014 Unknown COMPREHENSIVE METABOLIC 57917 POTASSIUM 4.5 MMOL/L 04/05 Unknown COMPREHENSIVE METABOLIC 22561 PROT TOT 6.7 GM/DL 2014 Unknown COMPREHENSIVE METABOLIC 83390 Glucose 77 MG/DL 2014 Unknown COMPREHENSIVE METABOLIC 16152 BICARB 25 MMOL/L 2014 Unknown COMPREHENSIVE METABOLIC 12454 ANION GAP 9 MEQ/L 2014 Unknown GFR CALC 4368361 GFR AA >60 ML/MIN 04/05/2015 Unknown GFR CALC 1399268 GFR NON-AA >60 ML/MIN 04/05/2015 Unknown LIPID GROUP 97725 HDL TEST 60 MG/DL 04/05/2015 Unknown LIPID GROUP 07534 TRIG 70 MG/DL 04/05/2015 Unknown LIPID GROUP 46501 TEST LDL 137 MG/DL 04/05/2015 Unknown LIPID GROUP 05304 CHOL 211 MG/DL 04/05/2015 Unknown LIPID GROUP 63754 RCHOL/HDL 3.52 RATIO 04/05/2015 Unknow n LIPID GROUP 74944 NON-HDL CH 151 MG/DL 04/05/2015 Unknow n COMPLETE BLOOD COUNT 5455283 WBC 5.3 10e9/L 04/05/20 15 Unknown COMPLETE BLOOD COUNT 1856980 RBC 4.42 10e12/L 2014 Unknown COMPLETE BLOOD COUNT 3879162 HGB 13.4 g/dL 5 Unknown COMPLETE BLOOD COUNT 1116362 HCT DET 39.6 % 5 Unknown COMPLETE BLOOD COUNT 0625891 MCV 89.6 fL 5 Unknown COMPLETE BLOOD COUNT 3844752 MCH 30.3 pg 5 Unknown COMPLETE BLOOD COUNT 2027211 MCHC 33.8 g/dL 5 Unknown COMPLETE BLOOD COUNT 1591331 PLT 201 10e9/L 04/05/20 15 Unknown COMPLETE BLOOD COUNT 0453976 MPV 10.3 fL 5 Unknown COMPLETE BLOOD COUNT 5951063 LUPE % 56.4 % 5 Unknown COMPLETE BLOOD COUNT 6716330 LY % 24.8 % 5 Unknown COMPLETE BLOOD COUNT 0053695 MON % 12.8 % 5 Unknown COMPLETE BLOOD COUNT 9361900 EOS % 5.4 % 5 Unknown COMPLETE BLOOD COUNT 9912124 BASO % 0.6 % 5 Unknown COMPLETE BLOOD COUNT 3852891 RDW 13.2 % 5 Unknown COMPLETE BLOOD COUNT 4376935 ABS LUPE 2.99 10e9/L 015 Unknown COMPLETE BLOOD COUNT 0317191 ABS LYMPH 1.31 10e9/L 015 Unknown COMPLETE BLOOD COUNT 1626621 ABS MONO 0.68 10e9/L 015 Unknown COMPLETE BLOOD COUNT 9087007 ABS EOS 0.29 10e9/L 015 Unknown COMPLETE BLOOD COUNT 0936334 ABS BASO 0.03 10e9/L 015 Unknown COMPLETE BLOOD COUNT 9036860 RDW-SD 42.3 fL 5 Unknown LIPID GROUP 98114 HDL TEST 51 MG/DL 07/19/2012 Unknown LIPID GROUP 49088 TRIG 129 MG/DL 07/19/2012 Unknown LIPID GROUP 99294 TEST LDL 98 MG/DL 07/19/2012 Unknown LIPID GROUP 19882 CHOL 175 MG/DL 07/19/2012 Unknown LIPID GROUP 43967 RCHOL/HDL 3.43 RATIO 07/19/2012 Unknow n COMPREHENSIVE METABOLIC 27397 AST 18 U/L 2011 Unknown COMPREHENSIVE METABOLIC 03210 ALT 12 IU/L 2011 Unknown COMPREHENSIVE METABOLIC 03874 BUN 10 MG/DL 2011 Unknown COMPREHENSIVE METABOLIC 99183 ALBUMIN 4.1 GM/DL 2011 Unknown COMPREHENSIVE METABOLIC 21160 CHLORIDE 103 MMOL/L 07/19 Unknown COMPREHENSIVE METABOLIC 13956 BILI TOT 0.9 MG/DL 2011 Unknown COMPREHENSIVE METABOLIC 51992 ALK PHOS 62 U/L 2011 Unknown COMPREHENSIVE METABOLIC 34214 SODIUM 138 MMOL/L 07/19 Unknown COMPREHENSIVE METABOLIC 01730 CREATININE 1.08 MG/DL 10/2011 Unknown COMPREHENSIVE METABOLIC 59885 CALCIUM 9.1 MG/DL 2011 Unknown COMPREHENSIVE METABOLIC 25222 POTASSIUM 4.2 MMOL/L 07/19 Unknown COMPREHENSIVE METABOLIC 61893 PROT TOT 6.7 GM/DL 2011 Unknown COMPREHENSIVE METABOLIC 77967 Glucose 101 MG/DL 2011 Unknown COMPREHENSIVE METABOLIC 25015 BICARB 27 MMOL/L 2011 Unknown COMPREHENSIVE METABOLIC 85899 ANION GAP 8 MEQ/L 2011 Unknown GFR CALC 4451123 GFR AA >60 ML/MIN 07/19/2012 Unknown GFR CALC 0381428 GFR NON-AA >60 ML/MIN 07/19/2012 Unknown Procedures Procedure Codes Date ROUTINE VENIPUNCTURE CPT-4: 67316 09/24/2019 COMPLETE CBC W/AUTO DIFF WBC CPT-4: 21609 09/24/2019 COMPREHEN METABOLIC PANEL CPT-4: 67013 09/24/2019 LIPID PANEL CPT-4: 53625 09/24/2019 ASSAY THYROID STIM HORMONE CPT-4: 45015 09/24/2019 THER/PROPH/DIAG INJ SC/IM CPT-4: 24418 01/13/2019 TRIAMCINOLONE ACET INJ NOS CPT-4: J3301 01/13/2019 DEXAMETHASONE SODIUM PHOS CPT-4: J1100 01/13/2019 ROUTINE VENIPUNCTURE CPT-4: 96058 09/04/2018 COMPREHEN METABOLIC PANEL CPT-4: 04785 09/04/2018 COMPLETE CBC W/AUTO DIFF WBC CPT-4: 06379 09/04/2018 LIPID PANEL CPT-4: 15275 09/04/2018 ASSAY OF PSA TOTAL CPT-4: 34278 09/04/2018 ASSAY THYROID STIM HORMONE CPT-4: 32630 09/04/2018 URINALYSIS NONAUTO W/O SCOPE CPT-4: 42305 05/15/2018 ROUTINE VENIPUNCTURE CPT-4: 30589 11/16/2017 A FRT/VG P CPT-4: 4412041 11/16/2017 A FOOD C P CPT-4: 1473918 11/16/2017 A NUTS PNL CPT-4: 9924624 11/16/2017 THER/PROPH/DIAG INJ SC/IM CPT-4: 92993 11/06/2017 TRIAMCINOLONE ACET INJ NOS CPT-4: J3301 11/06/2017 DEXAMETHASONE SODIUM PHOS CPT-4: J1100 11/06/2017 ROUTINE VENIPUNCTURE CPT-4: 24565 09/03/2017 ASSAY OF FREE THYROXINE CPT-4: 46378 09/03/2017 ASSAY THYROID STIM HORMONE CPT-4: 22643 09/03/2017 ASSAY TRIIODOTHYRONINE (T3) CPT-4: 51284 09/03/2017 ROUTINE VENIPUNCTURE CPT-4: 64342 07/31/2017 COMPREHEN METABOLIC PANEL CPT-4: 67972 07/31/2017 COMPLETE CBC W/AUTO DIFF WBC CPT-4: 32847 07/31/2017 LIPID PANEL CPT-4: 48033 07/31/2017 FLU VACC PRSV FREE INC ANTIG 65 AND OLDER CPT-4: 53958 07/04/2017 ADMIN INFLUENZA VIRUS VAC CPT-4: G0008 07/04/2017 ROUTINE VENIPUNCTURE CPT-4: 86529 02/26/2017 ASSAY THYROID STIM HORMONE CPT-4: 71385 02/26/2017 COMPREHEN METABOLIC PANEL CPT-4: 96177 02/26/2017 COMPLETE CBC W/AUTO DIFF WBC CPT-4: 79591 02/26/2017 LIPID PANEL CPT-4: 14205 02/26/2017 ASSAY OF PSA TOTAL CPT-4: 56327 02/26/2017 FLUZONE, 5ML (Medicare) CPT-4: Q2038 06/28/2016 ADMIN INFLUENZA VIRUS VAC CPT-4: G0008 06/28/2016 ROUTINE VENIPUNCTURE CPT-4: 13623 05/19/2016 ASSAY OF FREE THYROXINE CPT-4: 31812 05/19/2016 ASSAY THYROID STIM HORMONE CPT-4: 69403 05/19/2016 COMPREHEN METABOLIC PANEL CPT-4: 35890 05/19/2016 COMPLETE CBC W/AUTO DIFF WBC CPT-4: 65952 05/19/2016 LIPID PANEL CPT-4: 99646 05/19/2016 VITAMIN B-12 CPT-4: 59961 05/19/2016 PPPS, initial visit CPT-4: G0438 05/10/2016 ROUTINE VENIPUNCTURE CPT-4: 61206 04/05/2015 ASSAY THYROID STIM HORMONE CPT-4: 95252 04/05/2015 COMPREHEN METABOLIC PANEL CPT-4: 47596 04/05/2015 COMPLETE CBC W/AUTO DIFF WBC CPT-4: 75660 04/05/2015 LIPID PANEL CPT-4: 99466 04/05/2015 ASSAY OF PSA TOTAL CPT-4: 30881 04/05/2015 ROUTINE VENIPUNCTURE CPT-4: 51887 07/19/2012 COMPREHEN METABOLIC PANEL CPT-4: 96602 07/19/2012 LIPID PANEL CPT-4: 62147 07/19/2012 ELECTROCARDIOGRAM COMPLETE CPT-4: 64438 03/22/2012 Vital Signs Date Vital 09/24/2019 Blood Pressure 1: 125/72 Code: 8480-6 BMI: 19.8 Code: 67606-3 Heart Rate 1: 88 bpm Height: 5'11" [...] 1: 102/60 Code: 8480-6 BMI: 19.1 Code: 00352-2 Heart Rate 1: 82 bpm Height: 5'11" Respiratory Rate: 22 bpm SpO2: 97% Tempera ture: 36.4 (C) / 97.6 (F) Weight: 137 lbs 04/25/2018 Blood Pressure 1: 118/64 Code: 8480-6 BMI: 19.2 Code: 89467-7 Heart Rate 1: 98 bpm Height: 5'11" Respiratory Rate: 20 bpm SpO2: 99% Tempera ture: 36.4 (C) / 97.6 (F) Weight: 138 lbs 11/06/2017 Blood Pressure 1: 108/68 Code: 8480-6 BMI: 18.5 Code: 44644-9 Heart Rate 1: 68 bpm Height: 5'11" Respiratory Rate: 20 bpm SpO2: 96% Tempera ture: 36.8 (C) / 98.2 (F) Weight: 133 lbs 09/03/2017 Blood Pressure 1: 122/64 Code: 8480-6 BMI: 17.6 Code: 33189-0 Heart Rate 1: 90 bpm Height: 5'11" Respiratory Rate: 20 bpm SpO2: 98% Tempera ture: 36.4 (C) / 97.6 (F) Weight: 126 lbs 08/21/2017 Blood Pressure 1: 114/80 Code: 8480-6 BMI: 17.9 Code: 70035-1 Heart Rate 1: 80 bpm Height: 5'11" Respiratory Rate: 20 bpm SpO2: 95% Tempera ture: 36.6 (C) / 97.9 (F) Weight: 128 lbs 02/13/2017 Blood Pressure 1: 122/60 Code: 8480-6 BMI: 18.5 Code: 07990-6 Heart Rate 1: 76 bpm Height: 5'11" Respiratory Rate: 20 bpm SpO2: 96% Tempera ture: 36.9 (C) / 98.4 (F) Weight: 133 lbs 11/23/2016 Blood Pressure 1: 126/70 Code: 8480-6 BMI: 18.5 Code: 61847-4 Heart Rate 1: 100 bpm Height: 5'11" Respiratory Rate: 20 bpm SpO2: 96% Tempera ture: 37.1 (C) / 98.8 (F) Weight: 133 lbs 05/23/2016 Blood Pressure 1: 128/82 Code: 8480-6 BMI: 18.5 Code: 76932-3 Heart Rate 1: 88 bpm Height: 5'11" Respiratory Rate: 20 bpm Temperature: 36 .7 (C) / 98.0 (F) Weight: 133 lbs 05/10/2016 Blood Pressure 1: 146/70 Code: 8480-6 BMI: 18.5 Code: 98072-1 Heart Rate 1: 84 bpm Height: 5'11" Respiratory Rate: 20 bpm Temperature: 36 .7 (C) / 98.1 (F) Weight: 133 lbs 04/01/2015 Blood Pressure 1: 102/60 Code: 8480-6 BMI: 18.5 Code: 49602-7 Heart Rate 1: 64 bpm Height: 5'11" Respiratory Rate: 20 bpm Temperature: 36 .8 (C) / 98.2 (F) Weight: 133 lbs 01/13/2014 Blood Pressure 1: 124/78 Code: 8480-6 BMI: 19.8 Code: 86222-3 Heart Rate 1: 76 bpm Height: 5'11" Respiratory Rate: 20 bpm Temperature: 36 .8 (C) / 98.2 (F) Weight: 142 lbs 04/03/2012 Blood Pressure 1: 106/76 Code: 8480-6 BMI: 20.9 Code: 80111-9 Heart Rate 1: 84 bpm Height: 5'11" Respiratory Rate: 20 bpm Temperature: 36 .7 (C) / 98.0 (F) Weight: 150 lbs 12/20/2011 Blood Pressure 1: 116/60 Code: 8480-6 BMI: 20.1 Code: 59562-8 Heart Rate 1: 80 bpm Height: 5'11" Respiratory Rate: 20 bpm Temperature: 36 .4 (C) / 97.6 (F) Weight: 144 lbs 10/24/2011 Blood Pressure 1: 132/74 Code: 8480-6 BMI: 19.7 Code: 33395-9 Heart Rate 1: 96 bpm Height: 5'11" [...] 04/05/2015 follow up 04/01/2015 follow up 01/13/2014 [facility] fw from Justin Palacio'justin in November 2012 lab draw 07/19/2012 follow up 04/03/2012 S/P stent placement in LAD, changed effient to plavix hip pain 12/20/2011 dyskinesia or tremor 10/24/2011 follow up 03/13/2011 started on effient, zocor, and atenolol follow up 02/20/2011 Hospital [facility]/Dr Christian rojas follow up 02/23/2010 [facility], appt with Dr Bajwa 03/22/10 insomnia 01/12/2010 problems falling and staying asleep, takes nortriptyline Encounters Encounter Performer Location Codes Date ([id number]) OFFICE/OUTPATIENT VISIT EST Diagnosis: Encounter for therapeutic drug level monitoring[ICD10: Z51.81] Diagnosis: Essential tremor[ICD10: G25.0] Verna COLMENARES [employer] CPT-4: 75722 09/24/2019 ([id number]) OFFICE/OUTPATIENT VISIT EST Diagnosis: Noninfective gastroenteritis and colitis, unspecified[ICD10: K52.9] Diagnosis: Hemorrhage of anus and rectum[ICD10: K62.5] Vonnie Reid VONNIE [employer] CPT-4: 03503 05/26/2019 ([id number]) OFFICE/OUTPATIENT VISIT EST Diagnosis: Other intervertebral disc degeneration, 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] Diagnosis: Other forms of dyspnea[ICD10: R06.09] Vonnie Bowman KARIE VISHAL [employer] CPT-4: 27467 03/17/2019 OFFICE/OUTPATIENT VISIT EST Diagnosis: Other intervertebral disc degeneration, 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] Diagnosis: Other symptoms and signs involving the musculoskeletal system[ICD10: R29.898] Vonnie Fahadranjan COLMENARES [employer] CPT-4: 34716 02/18/2019 ([id number]) OFFICE/OUTPATIENT VISIT EST Diagnosis: Other allergic rhinitis[ICD10: J30.89] Akilah GASPAR [employer] CPT-4: 01470 01/13/2019 ([id number]) NURSE/OUTPATIENT VISIT EST Diagnosis: Mixed hyperlipidemia[ICD10: E78.2] Diagnosis: Essential (primary) hypertension[ICD10: I10] Diagnosis: Encounter for screening for malignant neoplasm of prostate[ICD10: Z12.5] Diagnosis: Encounter for general adult medical examination with abnormal findings[ICD10: Z00.01] Diagnosis: Benign prostatic hyperplasia without lower urinary tract symptoms[ICD10: N40.0] Vonnie MATHEWS [employer] CPT-4: 26142 09/04/2018 ([id number]) OFFICE/OUTPATIENT VISIT EST Diagnosis: Otorrhea, left ear[ICD10: H92.12] Diagnosis: Impacted cerumen, right ear[ICD10: H61.21] Verna MATHEWS DO [employer] CPT-4: 09939 09/03/2018 ([id number]) OFFICE/OUTPATIENT VISIT EST Diagnosis: Other intervertebral disc degeneration, 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] Diagnosis: Primary insomnia[ICD10: F51.01] Diagnosis: Essential tremor[ICD10: G25.0] Vonnie MATHEWS [employer] CPT-4: 60158 08/26/2018 ([id number]) OFFICE/OUTPATIENT VISIT EST Diagnosis: Pelvic and perineal pain[ICD10: R10.2] Verna MATHEWS [employer] CPT-4: 24267 05/15/2018 ([id number]) OFFICE/OUTPATIENT VISIT EST Diagnosis: Encounter for therapeutic drug level monitoring[ICD10: Z51.81] Diagnosis: Acute sinusitis, unspecified[ICD10: J01.90] Diagnosis: Other intervertebral disc degeneration, 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] Diagnosis: Essential tremor[ICD10: G25.0] Diagnosis: Raynaud's syndrome without gangrene[ICD10: I73.00] Verna MATHEWS [employer] CPT-4: 59354 04/25/2018 ([id number]) OFFICE/OUTPATIENT VISIT EST Diagnosis: Idiopathic urticaria[ICD10: L50.1] Diagnosis: Other urticaria[ICD10: L50.8] Vonnie MATHEWS [employer] CPT-4: 32241 11/16/2017 ([id number]) OFFICE/OUTPATIENT VISIT EST Diagnosis: Idiopathic urticaria[ICD10: L50.1] Diagnosis: Other urticaria[ICD10: L50.8] Diagnosis: Other forms of dyspnea[ICD10: R06.09] Vonnie Reid MATHEWS [employer] [facility] CPT-4: 57531 11/06/2017 ([id number]) OFFICE/OUTPATIENT VISIT EST Diagnosis: Dyspnea, unspecified[ICD10: R06.00] Diagnosis: Abnormal weight loss[ICD10: R63.4] Vonniejuan jose LAIPATI MATHEWS [employer] [facility] CPT-4: 29372 09/03/2017 ([id number]) OFFICE/OUTPATIENT VISIT EST 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] Diagnosis: Mixed hyperlipidemia[ICD10: E78.2] Diagnosis: Essential tremor[ICD10: G25.0] Diagnosis: Essential (primary) hypertension[ICD10: I10] Diagnosis: Abnormal weight loss[ICD10: R63.4] Vonnie Orendranjan SONUJOVANNY BOWMAN [employer] [facility] CPT-4: 43078 08/21/2017 ([id number]) OFFICE/OUTPATIENT VISIT EST Diagnosis: Mixed hyperlipidemia[ICD10: E78.2] Diagnosis: Essential (primary) hypertension[ICD10: I10] 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] Diagnosis: Anemia, unspecified[ICD10: D64.9] Vonnie Galarza Denia BOWMAN [employer] [facility] CPT-4: 59261 07/31/2017 ([id number]) OFFICE/OUTPATIENT VISIT EST Diagnosis: FLU VACCINE[ICD10: Z23] Vonnie LAIQUELINE Denia BOWMAN [employer] [facility] CPT-4: 57387 07/04/2017 ([id number]) OFFICE/OUTPATIENT VISIT EST Diagnosis: Mixed hyperlipidemia[ICD10: E78.2] Diagnosis: Essential tremor[ICD10: G25.0] 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] Diagnosis: Essential (primary) hypertension[ICD10: I10] Diagnosis: Supraventricular tachycardia[ICD10: I47.1] Diagnosis: Other fatigue[ICD10: R53.83] Diagnosis: Encounter for screening for malignant neoplasm of prostate[ICD10: Z12.5] Vonnie MATHEWS DO [facility] CPT-4: 05084 02/26/2017 ([id number]) OFFICE/OUTPATIENT VISIT EST Diagnosis: Essential tremor[ICD10: G25.0] Vonnie MATHEWS DO [facility] CPT-4: 56357 02/13/2017 ([id number]) OFFICE/OUTPATIENT VISIT EST Diagnosis: Essential tremor[ICD10: G25.0] Diagnosis: Other intervertebral disc degeneration, 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] Vonnie MATHEWS DO [facility] CPT-4: 48920 11/23/2016 ([id number]) OFFICE/OUTPATIENT VISIT EST Diagnosis: FLU VACCINE[ICD10: Z23] Vonnie GERMAN [employer] [facility] CPT-4: 18445 06/28/2016 OFFICE/OUTPATIENT VISIT EST Diagnosis: Open bite of right hand, initial encounter[ICD10: S61.451A] Vonnie MATHEWS DO [facility] CPT-4: 38176 05/23/2016 ([id number]) OFFICE/OUTPATIENT VISIT EST Diagnosis: Encounter for general adult medical examination with abnormal findings[ICD10: Z00.01] Diagnosis: Mixed hyperlipidemia[ICD10: E78.2] Diagnosis: Essential tremor[ICD10: G25.0] 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 CPT-4: 26907 04/01/2015 ([id number]) OFFICE/OUTPATIENT VISIT EST Diagnosis: CHEST PAIN NOS[ICD9: 786.50] Diagnosis: PAIN IN THORACIC SPINE[ICD9: 724.1] Diagnosis: HYPERTENSION[ICD9: 401.9] Diagnosis: GERD[ICD9: 530.81] Vonnie Romulojuan miguel COLMENARES [facility] CPT-4: 44354 01/13/2014 ([id number]) OFFICE/OUTPATIENT VISIT EST Diagnosis: CAD[ICD9: 414.00] Diagnosis: HYPERLIPIDEMIA NEC/NOS[ICD9: 272.4] Vonnie Romulojuan miguel ANNA SKim [facility] CPT-4: 99066 07/19/2012 ([id number]) OFFICE/OUTPATIENT VISIT EST Diagnosis: CAD[ICD9: 414.00] Diagnosis: INSOMNIA NOS[ICD9: 780.52] Vonniefabricio Loza OR YULISA [facility] CPT-4: 62237 04/03/2012 ([id number]) OFFICE/OUTPATIENT VISIT EST Diagnosis: CHEST PAIN NOS[ICD9: 786.50] Diagnosis: CAD[ICD9: 414.00] Vonnie Romulojuan miguel COLMENARSE JustinKim [facility] CPT-4: 46596 03/22/2012 ([id number]) OFFICE/OUTPATIENT VISIT EST Diagnosis: PROSTATITIS[ICD9: 601.9] Diagnosis: TREMOR NEC[ICD9: 333.1] Vonnie COLMENARES JustinKim [facility] ER [facility] CPT-4: 19747 12/20/2011 OFFICE/OUTPATIENT VISIT EST Diagnosis: TREMOR NEC[ICD9: 333.1] Diagnosis: TACHYCARDIA[ICD9: 785.0] Diagnosis: HYPERTENSION[ICD9: 401.9] Vonnie Loza [facility] CPT-4: 95372 10/24/2011 OFFICE/OUTPATIENT VISIT EST Vonnie Loza [facility] CPT- 4: 74353 03/13/2011 ([id number]) OFFICE/OUTPATIENT VISIT EST Vonnie SCHULTZNDER DO [employer] CPT-4: 98952 02/20/2011 ([id number]) OFFICE/OUTPATIENT VISIT, EST Vonnie BOWMANER DO [employer] CPT-4: 80241 02/23/2010 ([id number]) OFFICE/OUTPATIENT VISIT, EST Vonnie BOWMANER DO [employer] CPT-4: 44144 01/12/2010 Plan of Care Planned Activity Notes Codes Status Date Appointment: Verna Ramirez [address] [place], [place] [phone] [place] RESCHEDULED 09/25/2019 Visit Diagnosis Plan: Essential tremor Discussion: sta ble on clonazepam. educated patient about purchasing a large, heavy pen that will allow him to improve his writing. instructed him that pens can be purchased on [employer]. ICD-9 : 333.1 ICD-10 : G25.0 09/24/2019 Visit Diagnosis Plan: Encounter for therapeutic drug l evel monitoring Discussion: UDS and contract completed today. ICD-9 : V58.83 ICD-10 : Z51.81 09/24/2019 Appointment: Verna Ramirez [address] [place], [place] [phone] [place] MEDICATION REVIEW 09/24/2019 Visit Diagnosis Plan: Noninfective gastroenteritis and colitis, unspecified Discussion: Flagyl [place] diet Update colonoscopy ICD-9 : 558.9 ICD-10 : K52.9 05/26/2019 Visit Diagnosis Plan: Hemorrhage of anus and rectum Di scussion: Update colonoscopy ICD-9 : 569.3 ICD-10 : K62.5 05/26/2019 Appointment: Vonnie Mathews WPtel: [phone] [facility] [place] record request faxed 05/23; LM with medical records 05/26/19 Hospital Follow Up 05/26/2019 Care Plan: Referral Order SNOMED-CT : 30 [id number] Pending 05/26/2019 Visit Diagnosis Plan: Other intervertebral disc degene ration, lumbar region Discussion: Increase lyrica to 150mg po q HS Continue stretches from PT [facility] Fwup after that appointment ICD-9 : 722.52 ICD-10 : M51.36 03/17/2019 Appointment: Vonnie Mathewstel: [address] [place] [address] [place] FOLLOW UP 03/17/2019 Visit Diagnosis Plan: Other intervertebral disc degene ration, lumbar region Discussion: Start PT Referral for epidural Will start lyrica 75mg po q HS once CT scan results obtained [facility] Follow Up: 3 weeks ICD-9 [...] ICD-10 : R29.898 02/18/2019 Appointment: Vonnie Mathewstel: [address] [place] [address] [place] FOLLOW UP 02/18/2019 Appointment: Vonnie Mathewstel: [address] [place] [address] [place] CANCELED 02/18/2019 Visit Diagnosis Plan: Other [...] : J30.89 01/13/2019 Appointment: Akilah Lopez [address] [employer] [place] [address] [place] Due for annual wellness ACUTE ILLNESS 01/14/20 Appointment: Vonnie Mathewstel: [address] [place], [place] [address] [place] LAB 09/04/2018 Visit Diagnosis Plan: Impacted [...] ICD-10 : H92.12 09/03/2018 Appointment: Verna Ramirez [address] [place], [place] [id number] ACUTE ILLNESS 09/03/2018 Visit Diagnosis Plan: Primary [...] M51.36 08/26/2018 Appointment: Vonnie Mathews WPtel: [phone] [facility] [place] FOLLOW UP 08/26/2018 Visit Diagnosis [...] ICD-10 : R10.2 05/15/2018 Appointment: Verna Ramirez [address] [place], [place] [phone] ACUTE ILLNESS 05/15/2018 Patient Education: Patient Medication Summary Completed 05/15/2018 Care Plan: US EXAM PELVIC COMPLETE scrotal LOINC : 58647-3 Pending 05/15/2018 Visit Diagnosis Plan: Other intervertebral [...] ICD-10 : I73.00 04/25/2018 Appointment: Verna Ramirez [address] [place] [address] MEDICATION REVIEW 04/25/2018 Patient Education: Patient Medication Summary Completed 04/25/2018 Appointment: Vonnie Mathews WPtel: [address] [place] [address] 11/16/2017 Patient Education: Patient Medication Summary Completed [...] : L50.1 11/06/2017 Appointment: Vonnie Mathews WPtel: [address] [place] [address] FOLLOW UP 11/06/2017 Patient Education: Patient Medication [...] : R63.4 09/03/2017 Appointment: Vonnie Mathews WPtel: [address] [place] [address] [place] FOLLOW UP 09/03/2017 Patient Education: Patient [...] Diagnosis Plan: Atherosclerotic he art disease of upper [place] coronary artery without angina pectoris Discussion: Sees Cardiology in 2 days To ER if CP returns before ICD-9 : 414.00 ICD-10 : I25.10 08/21/2017 Appointment: Vonnie Mathews WPtel: [address] [place], [place] [phone] FOLLOW UP 08/21/2017 Patient Education: Patient Medication Summary Completed 08/21/2017 Appointment: Vonnie Mathewstel: [address] [place], [place] [phone] [place] LAB 07/31/2017 Patient Education: Patient Medication Summary Completed 07/31/2017 Appointment: Vonnie Mathews WPtel: [address] [place], [place] [phone] [place] INJECTION 07/04/2017 Patient Education: Patient Medication Summary Completed 07/04/2017 Appointment: Vonnie Mathews WPtel: [address] [place], [place] [phone] [place] LAB 02/26/2017 Patient Education: Patient Medication Summary Completed 02/26/2017 Visit Diagnosis Plan: Essential tremor Discussion: Con tinue clonazepam at 1mg q AM and primidone 50mg q HS Follow Up: 3 months ICD-9 : 333.1 ICD-10 : G25.0 02/13/2017 Appointment: Vonnie Mathews WPtel: [address] [place] [address] 02/08 confirmed~sl FOLLOW UP 02/13/2017 Patient Education: Patient Medication Summary Completed 02/13/2017 Appointment: Vonnie Mathews WPtel: [address] [place] [address] RESCHEDULED 01/23/2017 Visit Diagnosis Plan: Other intervertebral disc degene ration, lumbar region Discussion: DC oxycodone Tramadol 50mg 1-2 po TID prn pain Follow Up: 2 months ICD-9 : 722.52 ICD-10 : M51.36 11/23/2016 Visit Diagnosis Plan: Essential tremor Discussion: Inc rease clonazepam to 1mg po BID Discussed sinemet ICD-9 : 333.1 ICD-10 : G25.0 11/23/2016 Appointment: Vonnie Mathews WPtel: [address] [place], [place] [phone] 11/22 confirmed~sl MEDICATION REVIEW 11/23/2016 Patient Education: Patient Medication Summary Completed 11/23/2016 Patient Education: [facility] - [employer] - Clonazepam - 18-64 - Dynamic Portal ID Completed 11/23/2016 Appointment: Vonnie Mathews WPtel: [address] [place] [address] INJECTION 06/28/2016 Patient Education: Patient Medication Summary Completed 06/28/2016 Referral: Fernando Day WPtel: #1 [facility] Shilpa Lopez [id number] [place] [phone] per Maribeth, the patient is sched uled [...] if worsening 05/23/2016 Appointment: Vonnie Mathews WPtel: [address] [place] [address] ER Follow UP 05/23/2016 Patient Education: Patient Medication Summary Completed 05/23/2016 Appointment: Vonnie Mathews WPtel: [address] [place] [address] LAB 05/19/2016 Patient Education: Patient Medication Summary Completed 05/19/2016 Visit Plan: Change coreg to 3.125mg BID Trial of low dose clonazepam 0.5mg BID for tremors Fwup with Dr. Ramsey as scheduled Return for fasting lab--CBC, CMP, TSH, free T4, Lipids, PSA, B12 Proceed with Colonoscopy 05/10/2016 Appointment: Vonnie Mathews WPtel: [address] [place] [address] 05/09 confirmed~sl Annual Well Visit 05/10/2016 Patient Education: Patient Medication Summary Completed 05/10/2016 Care Plan: Referral Order SNOMED-CT : 30 [id number] Pending 05/10/2016 Appointment: Vonnie Mathews WPtel: [address] [place], [place] [phone] [place] Rescheduled for 05/10/16 at 2PM~lb RESCHEDULED 04/26/2016 Referral: Danilo Ramsey WPtel: [phone] [id number] [place] Referral Initiated 04/29/2015 Appointment: Vonnie Mathews WPtel: [address] [place], [place] [phone] [place] LAB 04/05/2015 Patient Education: Patient Medication Summary Completed 04/05/2015 Visit Plan: Return in AM for fasting lab --CMP, lipids, CBC, TSH, PSA Change hydrocodone to oxycodone 7.5/325mg 1-2 po TID Schedule with cardiology Needs colonoscopy once cardiology evaluation complete Will need to restart chol meds after lab Recheck 1mo on pain meds 04/01/2015 Appointment: Vonnie Mathews WPtel: [address] [place] [address] 03/31 confirmed -mf PHYSICAL 04/01/2015 Patient Education: Patient Medication Summary Completed 04/01/2015 Appointment: Vonnie Mathews WPtel: [address] [place] [address] Annual Well Visit 09/23/2014 Visit Plan: Continue protonix Pt has fwu p with Card next month Rec chiropracter or PT for ribs/thoracics being out and could be contributing to chest pain 01/13/2014 Appointment: Vonnie Mathews WPtel: [address] [place], [place] [phone] [place] FOLLOW UP 01/13/2014 Patient Education: Patient Medication Summary Completed 01/13/2014 Appointment: Ariella Mcnally WPtel: [address] [place] [address] [place] FOLLOW UP 12/12/2013 Appointment: Malika Cárdenas WPtel: [address] [place] [address] PHYSICAL 12/12/2013 Appointment: Vonnie Mathews WPtel: [address] [place] [address] ACUTE ILLNESS 02/20/2013 Appointment: Vonnie Mathews WPtel: [address] [place] [address] LAB 07/19/2012 Patient Education: Patient Medication Summary Completed 07/19/2012 Appointment: Vonnie Mathews WPtel: [address] [place] [address] FOLLOW UP 04/03/2012 Patient Education: Patient Medication Summary Completed 04/03/2012 Appointment: Vonnie Mathews WPtel: [address] [place] [address] ACUTE ILLNESS 03/22/2012 Patient Education: Patient Medication Summary Completed 03/22/2012 Appointment: Vonnie Mathews WPtel: [address] [place] [address] FOLLOW UP 12/26/2011 Visit Plan: Add Cipro Continue current m eds 12/20/2011 Appointment: Vonnie Mathewstel: [address] [place] [address] ACUTE ILLNESS 12/20/2011 Patient Education: Patient Medication Summary Completed 12/20/2011 Visit Plan: Change neurontin to Cymbalta 30mg for 1wk then 60mg QD Add Propranolol for tremor 10/24/2011 Appointment: Vonnie Mathews WPtel: [address] [place] [address] ACUTE ILLNESS 10/24/2011 Appointment: Vonnie Mathews WPtel: [address] [place] [address] ACUTE ILLNESS 10/24/2011 Patient Education: Patient Medication Summary Completed 10/24/2011 Visit Plan: Continue current meds and fw up with Card as scheduled 03/13/2011 Appointment: Vonnie Mathews WPtel: [address] [place], [place] [phone] FOLLOW UP 03/13/2011 Patient Education: Patient Medication Summary Completed 03/13/2011 Visit Plan: Will obtain all records and lab from [facility] Discussed will likely need heart cath which pt states that Card did talk to him about in the hospital 02/20/2011 Appointment: Vonnie Mathews WPtel: [address] [place], [place] [phone] ACUTE ILLNESS 02/20/2011 Patient Education: Patient Medication Summary Completed 02/20/2011 Visit Plan: Cont Pepcid and Prilosec See Card for cardiac cath. 02/23/2010 Appointment: Vonnie Mathews WPtel: [address] [place], [place] [phone] FOLLOW UP 02/23/2010 Patient Education: Patient Medication Summary Completed 02/23/2010 Visit Plan: Increase Pamelor to 75mg qhs Increase Hydrocodone to 10/325mg 1-2 po q6 prn 01/12/2010 Appointment: Vonnie Mathews WPtel: [address] [place], [place] [phone] ACUTE ILLNESS 01/12/2010 Patient Education: Patient Medication Summary Completed 01/12/2010 Referral: Iván Pardo WPtel: [facility] [address] [place] Referral Initiated Referral: Fernando Day WPtel: #1 [facility] [place] Referral Completed Referral: Fernando Day WPtel: #1 [facility] [place] Referral Appointment Requested Instructions Comment [...]
--- OUTSIDE RECORDS SUMMARY | 2020-02-10 08:27 | XMS REPORT | CCD ---
Author Author Nash Mathews D.O. Organization [facility] Address [address] [place] [address] Phone Care Team Providers Care Supervisor [employer] Name Role Phone Vonnie Mathews D.O., PP Unavailable CCM Unavailable Summary Purpose Interface Exchange Insurance Providers Payer name Policy type / Coverage type Covered alliance party ID Effective Begin Date Effective End Date WPS MEDIC[place] B [place] Part B [id number] 2018 Unknown Family History Family History data not found Social History Social History Element Codes Description Effective Dates Marital status Unknown 10/24/[address]: 382054121 Nonsmoker 03/29/2011 Allergies, Adverse Reactions, Alerts Substance [...] R63.4 08/21/2017 Active 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: [...] Fill Instructions clonazepam 1 mg tablet RxNorm: 988261 TAKE 1 TABLET BY MOUTH EV SUSAN AM 09/23/2019 10/22/2019 Active clonazepam 1 mg tablet RxNorm: 552261 TAKE 1 TABLET BY MOUTH EV SUSAN AM 08/21/2019 09/22/2019 Inactive Singulair 10 mg tablet RxNorm: 124159 TABLET(S) 1 TABLET(S) PO QD 1 10/11/2019 Active Flagyl 500 mg tablet RxNorm: 124232 1 Tablet(s) PO TID 05/26/2019 Inactive clonazepam 1 mg tablet RxNorm: 645541 TAKE 1 TABLET BY MOUTH EV SUSAN MORNING 05/23/2019 06/21/2019 Inactive pravastatin 20 mg tablet RxNorm: 938667 1 Tablet(s) PO QD 04/14/2019 10/10/2019 Active Needs updated fasting labs Singulair 10 mg tablet RxNorm: 280716 Tablet(s) 1 TABLET(S) PO QD 0 04/14/2019 07/12/2019 Inactive clonazepam 1 mg tablet RxNorm: 654119 1 Tablet(s) PO QAM 02/21/2019 0 05/23/2019 Inactive Bevespi Aerosphere 9 mcg-4.8 mcg HFA aerosol inhaler RxNorm: 4020505 2 Puff(s) INH BID 02/19/2019 No Stop Date Active ProAir HFA 90 mcg/actuation aerosol inhaler RxNorm: 352890 2 Puff(s) INH Q4H as needed 02/19/2019 09/24/2019 Inactive metoprolol tartrate 25 mg tablet RxNorm: 414549 1/2 Tablet(s) PO BI D 02/18/2019 05/18/2019 Inactive pravastatin 20 mg tablet RxNorm: 090825 1 Tablet(s) PO QD Needs updated fasting labs 01/13/2019 04/14/2019 Inactive Needs updated fa sting labs Singulair 10 mg tablet RxNorm: 554541 Tablet(s) 1 TABLET(S) PO QD 0 01/13/2019 04/12/2019 Inactive Plavix 75 mg tablet RxNorm: 337151 Tablet(s) 1 TABLET(S) PO QD 04/201906/20/2019 Inactive [SAVINGS FOR NON-COVERED SHANDA -- BIN:463540, PCN: ASPROD1, Group: XXXXX, ID# [id number], Questions: . THIS IS NOT INSURANCE.] Singulair 10 mg tablet RxNorm: 549952 1 TABLET(S) PO QD 10/29/2018 Inactive primidone 50 mg tablet RxNorm: 697155 2 TABLET(S) PO BI D TAKE 2 TABLETS BY MOUTH EVERY NIGHT AT BEDTIME 10/07/2018 01/12/2019 Inactive Patient requests 90 days supply pravastatin 20 mg tablet RxNorm: 383396 1 TABLET(S) PO QD 09/23/2018 01/12/2019 Inactive clonazepam 1 mg tablet RxNorm: 407036 1 Tablet(s) PO QAM 09/19/2018 0 12/17/2018 Inactive primidone 50 mg tablet RxNorm: 891585 TABLET(S) TAKE 2 TABLETS BY MOUTH EVERY NIGHT AT BEDTIME 09/18/2018 01/12/2019 Inactive ciprofloxacin 0.2 % ear drops in a dropperette RxNorm: 70199 6 2 Drop(s) left otic (ear) BID 09/03/2018 09/09/2018 Inactive primidone 50 mg tablet RxNorm: 680426 2 Tablet(s) PO BI D TAKE 2 TABLETS BY MOUTH EVERY NIGHT AT BEDTIME 08/26/2018 10/06/2018 Inactive Ambien 5 mg tablet RxNorm: 705913 TAKE 1 TABLET BY MOUTH EVERY NIGHT AT BEDTIME 08/05/2018 09/03/2018 Inactive Singulair 10 mg tablet RxNorm: 625626 1 TABLET(S) PO QD 07/23/2018 Inactive clonazepam 1 mg tablet RxNorm: 379235 TAKE 1 TABLET BY MOUTH EV SUSAN MORNING 07/23/2018 08/21/2018 Inactive Plavix 75 mg tablet RxNorm: 335308 1 TABLET(S) PO QD 07/04/201812/22 Inactive [SAVINGS FOR NON-COVERED DRUGS -- BIN:00 3585, PCN: ASPROD1, Group: XXXXX, ID# [id number], Questions: . THIS IS NOT INSURANCE.] clonazepam 1 mg tablet RxNorm: 245256 TAKE 1 TABLET BY MOUTH EV SUSAN MORNING 06/25/2018 07/23/2018 Inactive clonazepam 1 mg tablet RxNorm: 644194 TAKE 1 TABLET BY MOUTH EV SUSAN MORNING 05/23/2018 06/21/2018 Inactive primidone 50 mg tablet RxNorm: 074224 Tablet(s) TAKE 2 TABLETS BY MOUTH EVERY NIGHT AT BEDTIME 05/16/2018 08/25/2018 Inactive oxycodone-acetaminophen 7.5 mg-325 mg tablet RxNorm: 0472015 1-2 Tablet(s) PO TID as needed 04/25/2018 05/24/2018 Inactive Singulair 10 mg tablet RxNorm: 658263 1 Tablet(s) PO QD 04/25/2018 Inactive Medrol (Jose) 4 mg tablets in a dose pack RxNorm: 918647 Tablet(s) PO take as directed 04/25/2018 09/02/2018 Inactive clonazepam 1 mg tablet RxNorm: 867502 TAKE 1 TABLET BY MOUTH EV SUSAN MORNING 04/24/2018 05/22/2018 Inactive Plavix 75 mg tablet RxNorm: 062606 1 TABLET(S) PO QD 04/04/201807/02 Inactive [SAVINGS FOR NON-COVERED DRUGS -- BIN:00 3589, PCN: ASPROD1, Group: XXXXX, ID# [id number], Questions: . THIS IS NOT INSURANCE.] pravastatin 20 mg tablet RxNorm: 777864 1 Tablet(s) PO QD 03/21/2018 09/16/2018 Inactive ProAir HFA 90 mcg/actuation aerosol inhaler RxNorm: 343929 2 Puff(s) INH Q4H as needed 03/18/2018 03/17/2018 Inactive tamsulosin 0.4 mg capsule RxNorm: 391601 1 CAPSULE(S) PO QD 018 01/12/2019 Inactive clonazepam 1 mg tablet RxNorm: 592763 1 Tablet(s) PO QAM 02/25/2018 0 04/25/2018 Inactive tamsulosin 0.4 mg capsule RxNorm: 123805 1 Capsule(s) PO QD 018 03/13/2018 Inactive tamsulosin 0.4 mg capsule RxNorm: 737988 1 Capsule(s) PO QD 018 02/03/2018 Inactive tamsulosin 0.4 mg capsule RxNorm: 525380 1 Capsule(s) PO QD 018 02/12/2018 Inactive Ambien 5 mg tablet RxNorm: 619230 Tablet(s) TAKE 1 TAB LET BY MOUTH EVERY NIGHT AT BEDTIME 01/24/2018 08/05/2018 Inactive primidone 50 mg tablet RxNorm: 835327 Tablet(s) TAKE 2 TABLETS BY MOUTH EVERY NIGHT AT BEDTIME 01/18/2018 05/16/2018 Inactive cyclobenzaprine 10 mg tablet RxNorm: 110139 1 Tablet(s) PO TID as needed for muscle spasm 01/11/2018 02/09/2018 Inactive [SAVINGS FOR NON -COVERED DRUGS -- BIN:213803, PCN: ASPROD1, Group: XXXXX, ID# [id number], Questions: . THIS IS NOT INSURANCE.] clonazepam 1 mg tablet RxNorm: 138994 1 Tablet(s) PO QAM 12/24/2017 0 02/21/2018 Inactive prednisone 20 mg tablet RxNorm: 737068 1 Tablet(s) PO QD 11/06/2017 0 11/10/2017 Inactive EpiPen 2-Jose 0.3 mg/0.3 mL injection, auto-injector RxNorm: 710480 1 Unit Dose IM as needed 11/06/2017 09/24/2019 Inactive ProAir HFA 90 mcg/actuation aerosol inhaler RxNorm: 606871 2 Puff(s) INH Q4H as needed 10/30/2017 03/17/2018 Inactive primidone 50 mg tablet RxNorm: 427248 TAKE 2 TABLETS BY MOUTH EVERY NIGHT AT BEDTIME 10/15/2017 01/17/2018 Inactive Plavix 75 mg tablet RxNorm: 273947 1 Tablet(s) PO QD 10/01/201703/29 Inactive [SAVINGS FOR NON-COVERED DRUGS -- BIN:00 3585, PCN: ASPROD1, Group: XXXXX, ID# [id number], Questions: . THIS IS NOT INSURANCE.] clonazepam 1 mg tablet RxNorm: 927513 1 Tablet(s) PO QAM 09/19/2017 0 12/16/2017 Inactive primidone 50 mg tablet RxNorm: 986943 2 Tablet(s) PO QHS 08/29/2017 0 01/18/2018 Inactive oxycodone-acetaminophen 7.5 mg-325 mg tablet RxNorm: 5605973 1-2 Tablet(s) PO TID as needed 08/22/2017 09/19/2017 Inactive pravastatin 20 mg tablet RxNorm: 347604 1 Tablet(s) PO QD 08/21/2017 03/21/2018 Inactive carvedilol 3.125 mg tablet RxNorm: 435252 1 Tablet(s) P O BID to replace 6.25mg dose 08/21/2017 09/02/2017 Inactive primidone 50 mg tablet RxNorm: 667389 TAKE 2 TABLETS BY MOUTH EVERY NIGHT AT BEDTIME 06/18/2017 08/28/2017 Inactive clonazepam 1 mg tablet RxNorm: 508427 1 Tablet(s) PO QAM 06/04/2017 1 11/02/2016 Inactive Plavix 75 mg tablet RxNorm: 237598 1 Tablet(s) PO QD 04/10/201710/01 Inactive [SAVINGS FOR NON-COVERED DRUGS -- BIN:00 3585, PCN: ASPROD1, Group: XXXXX, ID# [id number], Questions: . THIS IS NOT INSURANCE.] pravastatin 20 mg tablet RxNorm: 079516 1 Tablet(s) PO QD 02/26/2017 08/24/2017 Inactive carvedilol 3.125 mg tablet RxNorm: 947263 1 Tablet(s) P O BID to replace 6.25mg dose 02/26/2017 08/21/2017 Inactive Ultram 50 mg tablet RxNorm: 801455 TAKE 1 TO 2 TABLETS BY MOUTH THREE TIMES DAILY NEEDED FOR PAIN 02/26/2017 03/07/2017 Inactive pravastatin 20 mg tablet RxNorm: 144419 1 Tablet(s) PO QD 02/26/2017 08/21/2017 Inactive carvedilol 3.125 mg tablet RxNorm: 384917 1 Tablet(s) P O BID to replace 6.25mg dose 02/26/2017 08/20/2017 Inactive clonazepam 0.5 mg tablet RxNorm: 979831 1 Tablet(s) PO QAM 02/14/20 17 02/13/2017 Inactive primidone 50 mg tablet RxNorm: 341484 1 Tablet(s) PO QHS 02/13/2017 0 05/01/2017 Inactive clonazepam 1 mg tablet RxNorm: 876721 1 Tablet(s) PO QAM 02/13/2017 0 05/13/2017 Inactive primidone 50 mg tablet RxNorm: 887948 1/2 Tablet(s) PO QD for 7 days then increase to 1 tablet at bedtime 01/09/2017 02/12/2017 Inactive pravastatin 20 mg tablet RxNorm: 853680 Tablet(s) 1 TABLET(S) PO QD 11/29/2016 02/25/2017 Inactive clonazepam 1 mg tablet RxNorm: 687439 1 Tablet(s) PO BID replac es 0.5mg dose 11/23/2016 01/08/2017 Inactive pravastatin 20 mg tablet RxNorm: 532692 1 TABLET(S) PO QD 11/17/2016 11/28/2016 Inactive Ambien 5 mg tablet RxNorm: 357526 TAKE 1 TABLET BY MOUTH EVERY NIGHT AT BEDTIME 11/17/2016 12/14/2016 Inactive clonazepam 0.5 mg tablet RxNorm: 273102 TAKE 1 TABLET BY MOUTH TWICE DAILY 11/17/2016 11/22/2016 Inactive Plavix 75 mg tablet RxNorm: 072425 1 Tablet(s) PO QD 11/06/201604/09 Inactive [SAVINGS FOR NON-COVERED DRUGS -- BIN:00 3585, PCN: ASPROD1, Group: XXXXX, ID# [id number], Questions: . THIS IS NOT INSURANCE.] Plavix 75 mg tablet RxNorm: 987269 1 Tablet(s) PO QD 08/28/201611/05 Inactive [SAVINGS FOR NON-COVERED DRUGS -- BIN: 3585, PCN: ASPROD1, Group: XXXXX, ID# [id number], Questions: . THIS IS NOT INSURANCE.] Lidoderm 5 % topical patch RxNorm: 8919051 Application T OP 2 patches for 12hrs then off for 12hrs 08/28/2016 08/27/2016 Inactive clonazepam 0.5 mg tablet RxNorm: 829927 1 Tablet(s) PO BID 08/07/20 16 11/22/2016 Inactive pravastatin 20 mg tablet RxNorm: 187248 1 Tablet(s) PO QD 08/07/2016 11/04/2016 Inactive cyclobenzaprine 10 mg tablet RxNorm: 199025 1 Tablet(s) PO TID as needed for muscle spasm 08/07/2016 09/05/2016 Inactive [SAVINGS FOR NON -COVERED DRUGS -- BIN:904959, PCN: ASPROD1, Group: XXXXX, ID# [id number], Questions: . THIS IS NOT INSURANCE.] Plavix 75 mg tablet RxNorm: 310831 1 Tablet(s) PO QD 08/07/201608/27 Inactive [SAVINGS FOR NON-COVERED DRUGS -- BIN:00 3585, PCN: ASPROD1, Group: XXXXX, ID# [id number], Questions: . THIS IS NOT INSURANCE.] carvedilol 3.125 mg tablet RxNorm: 347547 1 Tablet(s) P O BID to replace 6.25mg dose 08/07/2016 02/02/2017 Inactive clonazepam 0.5 mg tablet RxNorm: 345162 1 Tablet(s) PO BID 07/04/2008/07/2016 Inactive Plavix 75 mg tablet RxNorm: 103519 1 TABLET(S) PO QD 06/20/201608/06 Inactive [SAVINGS FOR NON-COVERED DRUGS -- BIN:00 3585, PCN: ASPROD1, Group: XXXXX, ID# [id number], Questions: . THIS IS NOT INSURANCE.] clonazepam 0.5 mg tablet RxNorm: 199752 1 Tablet(s) PO BID 06/09/20 16 07/03/2016 Inactive pravastatin 20 mg tablet RxNorm: 819410 1 Tablet(s) PO QD 05/23/2016 08/06/2016 Inactive pravastatin 20 mg tablet RxNorm: 391861 1 Tablet(s) PO QD 05/23/2016 05/22/2016 Inactive carvedilol 3.125 mg tablet RxNorm: 391873 1 Tablet(s) P O BID to replace 6.25mg dose 05/10/2016 08/06/2016 Inactive carvedilol 3.125 mg tablet RxNorm: 313103 1 Tablet(s) P O BID to replace 6.25mg dose 05/10/2016 05/09/2016 Inactive clonazepam 0.5 mg tablet RxNorm: 419841 1 Tablet(s) PO BID 05/10/20 16 06/08/2016 Inactive carvedilol 6.25 mg tablet RxNorm: 522035 1 Tablet(s) PO QD 05/10/20 16 05/10/2016 Inactive simvastatin 40 mg tablet RxNorm: 767684 1 TABLET(S) PO QD 04/10/2016 05/09/2016 Inactive Medrol (Jose) 4 mg tablets in a dose pack RxNorm: 134999 Tablet(s) PO As Directed 01/13/2016 05/09/2016 Inactive cyclobenzaprine 10 mg tablet RxNorm: 210470 1 TABLET(S) PO TID NEEDED FOR SPASM 01/11/2016 03/10/2016 Inactive [SAVINGS FOR NON -COVERED DRUGS -- BIN:518530, PCN: ASPROD1, Group: XXXXX, ID# [id number], Questions: . THIS IS NOT INSURANCE.] Plavix 75 mg tablet RxNorm: 064381 1 Tablet(s) PO QD 12/30/201506/19 Inactive [SAVINGS FOR NON-COVERED DRUGS -- BIN: 3585, PCN: ASPROD1, Group: XXXXX, ID# [id number], Questions: . THIS IS NOT INSURANCE.] Ambien 5 mg tablet RxNorm: 689054 TAKE 1 TABLET BY MOUTH EVERY DAY AT BEDTIME 11/15/2015 11/17/2016 Inactive simvastatin 40 mg tablet RxNorm: 974521 1 Tablet(s) PO QD 10/11/2015 01/12/2019 Inactive simvastatin 40 mg tablet RxNorm: 776684 1 Tablet(s) PO QD 10/08/2015 10/10/2015 Inactive Ambien 5 mg tablet RxNorm: 024861 TAKE 1 TABLET BY MOUTH EVERY NIGHT AT BEDTIME 07/27/2015 11/15/2015 Inactive Plavix 75 mg tablet RxNorm: 904988 1 Tablet(s) PO QD 06/28/201512/29 Inactive [SAVINGS FOR NON-COVERED DRUGS -- BIN: 3585, PCN: ASPROD1, Group: XXXXX, ID# [id number], Questions: . THIS IS NOT INSURANCE.] Coreg 6.25 mg tablet RxNorm: 605226 1 TABLET(S) PO BID 04/19/2015 Inactive [SAVINGS FOR NON-COVERED DRUGS -- BIN:00 3585, PCN: ASPROD1, Group: XXXXX, ID# [id number], Questions: . THIS IS NOT INSURANCE.] simvastatin 40 mg tablet RxNorm: 032438 1 Tablet(s) PO QD 04/05/2015 04/04/2015 Inactive simvastatin 40 mg tablet RxNorm: 867877 1 Tablet(s) PO QD 04/05/2015 10/11/2015 Inactive Plavix 75 mg tablet RxNorm: 106545 1 TABLET(S) PO QD 03/22/201504/20 Inactive [SAVINGS FOR NON-COVERED DRUGS -- BIN:00 3585, PCN: ASPROD1, Group: XXXXX, ID# [id number], Questions: . THIS IS NOT INSURANCE.] Plavix 75 mg tablet RxNorm: 220031 1 Tablet(s) PO QD 03/22/201506/28 Inactive [SAVINGS FOR NON-COVERED DRUGS -- BIN:00 3585, PCN: ASPROD1, Group: XXXXX, ID# [id number], Questions: . THIS IS NOT INSURANCE.] Ambien 5 mg tablet RxNorm: 020026 1 Tablet(s) PO QHS 12/17/201407/28 Inactive [SAVINGS FOR NON-COVERED DRUGS -- BIN:00 3585, PCN: ASPROD1, Group: XXXXX, ID# [id number], Questions: . THIS IS NOT INSURANCE.] Coreg 6.25 mg tablet RxNorm: 939526 1 Tablet(s) PO BID 12/17/2014 Inactive [SAVINGS FOR NON-COVERED DRUGS -- BIN:00 3585, PCN: ASPROD1, Group: XXXXX, ID# [id number], Questions: . THIS IS NOT INSURANCE.] Plavix 75 mg tablet RxNorm: 370839 1 Tablet(s) PO QD 12/17/201403/16 Inactive [SAVINGS FOR NON-COVERED DRUGS -- BIN:00 3585, PCN: ASPROD1, Group: XXXXX, ID# [id number], Questions: . THIS IS NOT INSURANCE.] cyclobenzaprine 10 mg tablet RxNorm: 545650 1 Tablet(s) PO TID as needed for spasm 12/17/2014 03/16/2015 Inactive [SAVINGS FOR NON -COVERED DRUGS -- BIN:352834, PCN: ASPROD1, Group: XXXXX, ID# [id number], Questions: . THIS IS NOT INSURANCE.] Coreg 6.25 mg tablet RxNorm: 425470 1 Tablet(s) PO BID 10/21/201409/2014 Inactive [SAVINGS FOR NON-COVERED DRUGS -- BIN:00 3585, PCN: ASPROD1, Group: XXXXX, ID# XXXXXXX, Questions: . THIS IS NOT INSURANCE.] Plavix 75 mg tablet RxNorm: 454450 1 Tablet(s) PO QD 10/21/201412/16 Inactive [SAVINGS FOR NON-COVERED DRUGS -- BIN:00 3585, PCN: ASPROD1, Group: XXXXX, ID# [id number], Questions: . THIS IS NOT INSURANCE.] Plavix 75 mg tablet RxNorm: 050704 1 Tablet(s) PO QD Ne eds routine check up--last seen March 2012 09/21/2014 10/20/2014 Inactive [SAVINGS FOR UNINSURED PATIENTS -- BIN:133274, PCN: ASPROD1, Group: AME08, ID# [id number], Process claim through [employer], for questions: . THIS IS NOT INSURANCE.] Ambien 5 mg tablet RxNorm: 665287 1 Tablet(s) [facility] 09/21/201412/16 Inactive [SAVINGS FOR UNINSURED PATIENTS -- BIN:0 19120, PCN: ASPROD1, Group: AME08, ID# [id number], Process claim through [employer], for questions: . THIS IS NOT INSURANCE.] Coreg 6.25 mg tablet RxNorm: 856052 1 Tablet(s) PO BID 09/21/201411/2014 Inactive [SAVINGS FOR UNINSURED PATIENTS -- BIN:0 31615, PCN: ASPROD1, Group: AME08, ID# [id number], Process claim through [employer], for questions: . THIS IS NOT INSURANCE.] Plavix 75 mg tablet RxNorm: 122781 1 Tablet(s) PO QD Ne eds routine check up--last seen March 2012 08/04/2014 09/02/2014 Inactive [SAVINGS FOR UNINSURED PATIENTS -- BIN:678694, PCN: ASPROD1, Group: AME08, ID# [id number], Process claim through [employer], for questions: . THIS IS NOT INSURANCE.] Plavix 75 mg tablet RxNorm: 295135 1 Tablet(s) PO QD Ne eds routine check up--last seen March 2012 08/03/2014 08/03/2014 Inactive Protonix 40 mg tablet,delayed release RxNorm: 369356 1 Tablet(s ) PO QD 06/08/2014 02/17/2019 Inactive [SAVINGS FOR UNINSUR ED PATIENTS -- BIN:882650, PCN: ASPROD1, Group: AME08, ID# [id number], Process claim through [employer], for questions: . THIS IS NOT INSURANCE.] hydrocodone 10 mg-acetaminophen 325 mg tablet RxNorm: 726784 1 Tablet(s) PO BID as needed for pain 02/18/2014 03/31/2015 Inactive Coreg 6.25 mg tablet RxNorm: 412533 1 Tablet(s) PO BID 02/02/2014 Inactive Protonix 40 mg granules delayed-release packet RxNorm: 016031 1 Tablet(s) PO QD 01/13/2014 06/08/2014 Inactive Plavix 75 mg tablet RxNorm: 209292 1 Tablet(s) PO QD Ne eds routine check up--last seen March 2012 01/13/2014 08/02/2014 Inactive Plavix 75 mg tablet RxNorm: 653414 1 Tablet(s) PO QD Ne eds routine check up--last seen March 2012 12/09/2013 01/07/2014 Inactive Coreg 6.25 mg tablet RxNorm: 381702 1 Tablet(s) PO BID 12/09/2013 Inactive Cymbalta 60 mg capsule,delayed release RxNorm: 841313 1 Capsule (s) PO QD 10/31/2013 01/12/2014 Inactive Coreg 6.25 mg tablet RxNorm: 114622 1 Tablet(s) PO BID 10/31/2013 Inactive Plavix 75 mg tablet RxNorm: 025953 1 Tablet(s) PO QD Ne eds routine check up--last seen March 2012 10/31/2013 11/29/2013 Inactive Coreg 6.25 mg tablet RxNorm: 031360 1 Tablet(s) PO BID 10/31/2013 Inactive atorvastatin 40 mg tablet RxNorm: 963918 1 Tablet(s) PO QD 10/31/19 14 03/31/2015 Inactive Plavix 75 mg tablet RxNorm: 461058 1 Tablet(s) PO QD Ne eds routine check up--last seen March 2012 09/23/2013 10/30/2013 Inactive cyclobenzaprine 10 mg tablet RxNorm: 748458 1 Tablet(s) PO TID as needed for spasm 09/23/2013 No Stop Date Active cyclobenzaprine 10 mg tablet RxNorm: 163136 1 Tablet(s) PO TID as needed for spasm 07/04/2013 09/22/2013 Inactive atorvastatin 40 mg tablet RxNorm: 017298 1 Tablet(s) PO QD 06/23/20 13 10/30/2013 Inactive atorvastatin 40 mg tablet RxNorm: 593280 1 Tablet(s) PO QD 04/22/20 13 06/22/2013 Inactive Nucynta 50 mg tablet RxNorm: 797200 1-2 Tablet(s) PO Q6H as nee ded for pain 01/01/2013 01/12/2014 Inactive Ambien 5 mg tablet RxNorm: 077409 1 Tablet(s) PO QHS 10/16/201201/13 Inactive Plavix 75 mg tablet RxNorm: 485266 1 Tablet(s) PO QD 09/19/201209/13 Inactive Protonix 40 mg tablet,delayed release RxNorm: 753464 1 Tablet(s ) PO QD 09/19/2012 09/18/2012 Inactive simvastatin 40 mg tablet RxNorm: 955551 1 Tablet(s) PO QD 09/19/2012 02/23/2013 Inactive Protonix 40 mg tablet,delayed release RxNorm: 248309 1 Tablet(s ) PO QD 09/19/2012 09/13/2013 Inactive Ultram 50 mg tablet RxNorm: 569781 1-2 Tablet(s) PO QID as need ed for pain 09/19/2012 02/26/2017 Inactive propranolol 80 mg tablet RxNorm: 062304 1 Tablet(s) PO QHS 09/19/19 13 09/18/2012 Inactive Cymbalta 60 mg capsule,delayed release RxNorm: 136859 1 Capsule (s) PO QD 09/19/2012 09/18/2012 Inactive Cymbalta 60 mg capsule,delayed release RxNorm: 661165 1 Capsule (s) PO QD 09/19/2012 03/17/2013 Inactive propranolol 80 mg tablet RxNorm: 085672 1 Tablet(s) PO QHS 09/19/19 13 02/23/2013 Inactive hydrocodone-acetaminophen 10 mg-325 mg tablet RxNorm: 168289 2 1-2 Tablet(s) PO QID 07/25/2012 02/23/2013 Inactive Ambien 10 mg tablet RxNorm: 737244 1 Tablet(s) PO QHS as needed for sleep 07/10/2012 01/27/2013 Inactive propranolol 80 mg tablet RxNorm: 126291 1 Tablet(s) PO QHS 05/13/20 12 09/18/2012 Inactive hydrocodone-acetaminophen 10 mg-325 mg tablet RxNorm: 185443 2 1-2 Tablet(s) PO QID 05/02/2012 No Stop Date Active Restoril 15 mg Cap RxNorm: 584929 1-2 Capsule(s) PO QHS 05/02/2012 Inactive propranolol 80 mg tablet RxNorm: 544434 1 Tablet(s) PO QHS 05/02/20 12 05/12/2012 Inactive Chantix Starting Month Box 0.5 mg (11)-1 mg (42) Tabs in a Dose Pack RxNorm: 889709 Tablet(s) PO As Directed 04/01/2012 01/27/2013 Inactive simvastatin 40 mg tablet RxNorm: 698887 1 Tablet(s) PO QD 03/28/2012 09/18/2012 Inactive simvastatin 40 mg Tab RxNorm: 795020 1 Tablet(s) PO QD 03/22/201207/2012 Inactive Effient 10 mg Tab RxNorm: 065369 1 Tablet(s) PO QD 03/22/2012 012 Inactive Prilosec 40 mg Capsule, delayed release RxNorm: 613125 1 Capsul e(s) PO QD 03/22/2012 09/18/2012 Inactive Prilosec 40 mg Capsule, delayed release RxNorm: 693913 1 Capsul e(s) PO QD 03/19/2012 03/21/2012 Inactive Cymbalta 60 mg capsule,delayed release RxNorm: 861348 1 Capsule (s) PO QD 03/04/2012 08/30/2012 Inactive hydrocodone-acetaminophen 10 mg-325 mg Tab RxNorm: 6184716 1-2 T ablet(s) PO QID 01/23/2012 No Stop Date Active Cymbalta 60 mg Capsule, delayed release RxNorm: 814395 1 Capsul e(s) PO QD 01/23/2012 03/03/2012 Inactive Cipro 500 mg Tab RxNorm: 633085 1 Tablet(s) PO BID 12/20/2011 012 Inactive Cymbalta 60 mg Capsule, delayed release RxNorm: 185553 1 Capsul e(s) PO QD 12/13/2011 01/22/2012 Inactive nortriptyline 75 mg Cap RxNorm: 633000 1 Capsule(s) PO QHS 11/29/1904/02/2012 Inactive Cymbalta 60 mg Cap RxNorm: 814561 1 Capsule(s) PO QD 10/24/201112/11 Inactive propranolol 80 mg Tab RxNorm: 851108 1 Tablet(s) PO QHS 10/24/2011 Inactive hydrocodone-acetaminophen 10 mg-325 mg Tab RxNorm: 6116032 1-2 T ablet(s) PO QID 09/29/2011 No Stop Date Active hydrocodone-acetaminophen 10 mg-325 mg Tab RxNorm: 6818694 1-2 T ablet(s) PO QID 07/25/2011 No Stop Date Active hydrocodone-acetaminophen 10 mg-325 mg Tab RxNorm: 9755058 1-2 T ablet(s) PO QID 02/14/2011 No Stop Date Active Prilosec 40 mg Cap RxNorm: 415032 1 Capsule(s) PO 01/03/2011 04/28/20 19 Inactive nortriptyline 75 mg Cap RxNorm: 316865 1 Capsule(s) PO QHS 01/04/20 11 07/01/2011 Inactive Neurontin 600 mg Tab RxNorm: 776054 1 Tablet(s) PO QHS 12/08/201011/2011 Inactive hydrocodone-acetaminophen 5 mg-500 mg Tab RxNorm: 044574 2 Tablet(s) PO Q4-6H prn 10/20/2010 01/08/2011 Inactive Diltzac ER 240 mg Cap RxNorm: 230841 1 Capsule(s) PO QD 07/14/2010 Inactive Nortriptyline 75 mg Cap RxNorm: 927047 1 Capsule(s) PO QHS 05/09/20 10 01/12/2019 Inactive Neurontin 600 mg Tab RxNorm: 441467 1 Tablet(s) PO QD 03/17/201012/17 Inactive Nortriptyline 75 mg Cap RxNorm: 164673 1 Capsule(s) PO 01/12/2010 Inactive Nortriptyline 50 mg Cap RxNorm: 198597 1 Capsule(s) PO QHS 01/13/20 10 01/11/2010 Inactive Diltzac ER 240 mg Cap RxNorm: 770539 1 Capsule(s) PO QD 12/06/2009 Inactive aspirin 81 mg Tab RxNorm: 630271 1 Tablet(s) PO QD No Start Date Active Vitamin D3 2,000 unit tablet RxNorm: 021670 1 Tablet(s) PO QD No Star t Date Active Lyrica 75 mg capsule RxNorm: 461574 1 Capsule(s) PO QHS No Start Date Active dvvntbnmb-kveksonyc-nppzzq complex no.233 oral RxNorm: oral No Start Date Active primidone 50 mg tablet RxNorm: 753499 2 Tablet(s) PO BID No Start Date Active Prilosec 40 mg Capsule, delayed release RxNorm: 617732 1 Capsul e(s) PO QD No Start Date 03/18/2012 Inactive Prilosec 20 mg Cap RxNorm: 711989 1 Capsule(s) PO QHS No Start Date 0 01/02/2011 Inactive primidone 50 mg tablet RxNorm: 560937 1/2 Tablet(s) PO QHS for 1week then go full tab if needed No Start Date 05/01/2017 Inactive ProAir HFA 90 mcg/actuation aerosol inhaler RxNorm: 071010 2 Puff(s) INH Q4H as needed No Start Date 10/29/2017 Inactive clonazepam 0.5 mg tablet RxNorm: 898843 1/2 Tablet(s) PO BID No Sta rt Date 02/12/2017 Inactive Pepcid AC 10 mg Tab RxNorm: 929416 1 Tablet(s) PO QAM No Start Date 0 02/19/2011 Inactive Coreg Oral RxNorm: Oral No Start Date 01/12/2014 Inactive primidone 50 mg tablet RxNorm: 688751 1/2 Tablet(s) PO QD for 7 days then increase to 1 tablet at bedtime No Start Date 01/08/2017 Inactive Medrol (Jose) 4 mg tablets in a dose pack RxNorm: 299799 Tablet(s) PO As Directed No Start Date 01/12/2016 Inactive Plavix 75 mg tablet RxNorm: 085280 1 Tablet(s) PO QD No Start Date Inactive cyclobenzaprine 10 mg tablet RxNorm: 947291 1 Tablet(s) PO TID as needed for spasm No Start Date 07/03/2013 Inactive Bevespi Aerosphere 9 mcg-4.8 mcg HFA aerosol inhaler RxNorm: 8362951 2 Puff(s) INH BID No Start Date 02/18/2019 Inactive tramadol 50 mg tablet RxNorm: 625573 1-2 Tablet(s) PO TID as ne eded for pain No Start Date 01/12/2019 Inactive clonazepam 1 mg tablet RxNorm: 673292 1 Tablet(s) PO QAM No Start D ate 09/18/2018 Inactive hydrocodone-acetaminophen 5 mg-500 mg Tab RxNorm: 433170 2 Tablet(s) PO Q4-6H prn No Start Date 10/19/2010 Inactive lisinopril 20 mg Tab RxNorm: 982931 1/2 Tablet(s) PO QD No Start Da te 03/12/2011 Inactive Protonix 40 mg tablet,delayed release RxNorm: 380053 1 Tablet(s ) PO QD No Start Date 06/07/2014 Inactive Lipitor Oral RxNorm: Oral No Start Date 01/12/2014 Inactive primidone 50 mg tablet RxNorm: 947216 2 Tablet(s) PO QAM and 1 tablet at HS No Start Date 02/17/2019 Inactive hydrocodone-acetaminophen 10 mg-325 mg Tab RxNorm: 3962251 1-2 T ablet(s) PO QID No Start Date 02/13/2011 Inactive Ultram 50 mg tablet RxNorm: 644235 1-2 Tablet(s) PO QID as need ed for pain No Start Date 09/18/2012 Inactive Effient 10 mg Tab RxNorm: 008614 1 Tablet(s) PO QD No Start Date 01/2012 Inactive Bevespi Aerosphere 9 mcg-4.8 mcg HFA aerosol inhaler RxNorm: 2794574 2 Puff(s) INH BID No Start Date 10/29/2017 Inactive Neurontin Oral RxNorm: Oral No Start Date 01/12/2010 Inactive primidone 50 mg tablet RxNorm: 532196 1 Tablet(s) PO QD No Start Da te 01/12/2019 Inactive Chantix Starting Month Box 0.5 mg (11)-1 mg (42) Tabs in a Dose Pack RxNorm: 681088 Tablet(s) PO No Start Date 03/31/2012 Inactive atenolol 25 mg Tab RxNorm: 362475 1 Tablet(s) PO QD No Start Date 02/2012 Inactive Neurontin 600 mg Tab RxNorm: 931505 1 Tablet(s) PO QD No Start Date 0 03/16/2010 Inactive Nucynta 50 mg tablet RxNorm: 368467 1-2 Tablet(s) PO Q6H as nee ded for pain No Start Date 12/31/2012 Inactive simvastatin 40 mg Tab RxNorm: 552641 1 Tablet(s) PO QD No Start Date 03/21/2012 Inactive Medication Administered No Medication Administered data Immunizations Vaccine Codes Date Status Influenza CVX: 135 07/04/2017 Complete Results Observation Observation Code Item Item Code Result Date S [facility] Location COMPLETE BLOOD COUNT [id number] WBC 4.9 10e9/L 09/04/20 18 Unknown COMPLETE BLOOD COUNT [id number] RBC 4.42 10e12/L 2017 Unknown COMPLETE BLOOD COUNT [id number] HEMOGLOBIN 13.4 g/dL 09/04/20 18 Unknown COMPLETE BLOOD COUNT 1394437 HEMATOCRIT 40.5 % 09/04/20 18 Unknown COMPLETE BLOOD COUNT [id number] MCV 91.6 fL 8 Unknown COMPLETE BLOOD COUNT 2193966 MCH 30.3 pg 8 Unknown COMPLETE BLOOD COUNT 9405815 MCHC 33.1 g/dL 8 Unknown COMPLETE BLOOD COUNT [id number] PLATELET COUNT 224 10e9/L Unknown COMPLETE BLOOD COUNT 5651178 Mean Plt Volume 9.9 fL Unknown COMPLETE BLOOD COUNT 0946882 Neut Auto 60.8 % 8 Unknown COMPLETE BLOOD COUNT [id number] Lymph Auto 26.8 % 09/04/20 18 Unknown COMPLETE BLOOD COUNT 1300253 [place]nn Auto 10.4 % 8 Unknown COMPLETE BLOOD COUNT 3294821 RDW 12.8 % 8 Unknown COMPLETE BLOOD COUNT 1644921 Eos Auto 1.6 % 8 Unknown COMPLETE BLOOD COUNT 0324041 Baso Auto 0.4 % 8 Unknown COMPLETE BLOOD COUNT 8108769 Neutrophil Abs 2.98 10e9/L Unknown COMPLETE BLOOD COUNT [id number] Lymphocyte Abs 1.31 10e9/L Unknown COMPLETE BLOOD COUNT 3784842 Monocyte Abs 0.51 10e9/L 08/17 Unknown COMPLETE BLOOD COUNT [id number] Eosinophil Abs 0.08 10e9/L Unknown COMPLETE BLOOD COUNT 1734927 RDW-SD 41.6 fL 8 Unknown COMPLETE BLOOD COUNT [id number] Basophil Abs 0.02 10e9/L 08/17 Unknown COMPREHENSIVE METABOLIC 92833 AST 16 U/L 2017 Unknown COMPREHENSIVE METABOLIC 52475 ALT 8 U/L 2017 Unknown COMPREHENSIVE METABOLIC 74083 BUN 12 mg/dL 2017 Unknown COMPREHENSIVE METABOLIC 22358 ALBUMIN 4.4 g/dL 2017 Unknown COMPREHENSIVE METABOLIC 17662 CHLORIDE 107 mmol/L 09/04 Unknown COMPREHENSIVE METABOLIC 69509 Bili Total 1.0 mg/dL 09/04 Unknown COMPREHENSIVE METABOLIC 87460 ALK PHOS 58 U/L 2017 Unknown COMPREHENSIVE METABOLIC 91656 SODIUM 142 mmol/L 09/04 Unknown COMPREHENSIVE METABOLIC 96694 CREATININE 0.97 mg/dL 08/17 Unknown COMPREHENSIVE METABOLIC 86835 CALCIUM 9.2 mg/dL 2017 Unknown COMPREHENSIVE METABOLIC 90652 POTASSIUM 4.6 mmol/L 09/04 Unknown COMPREHENSIVE METABOLIC 07364 Total Protein 6.5 g/dL Unknown COMPREHENSIVE METABOLIC 54546 Glucose 96 mg/dL 2017 Unknown COMPREHENSIVE METABOLIC 15886 Bicarbonate 29 mmol/L 08/17 Unknown COMPREHENSIVE METABOLIC 10856 AGAP 6 mmol/L 2017 Unknown LIPID GROUP 10493 Cholesterol 182 mg/dL 09/04/2018 Unkno wn LIPID GROUP 32106 Triglyceride 84 mg/dL 09/04/2018 Unkn own LIPID GROUP 84827 HDL CHOLESTEROL 76 mg/dL 09/04/2018 U nknown LIPID GROUP 76858 Chol/HDL Ratio 2.39 ratio 09/04/2018 U nknown LIPID GROUP 80310 NON-HDL Chol 106 mg/dL 09/04/2018 Unkn own LIPID GROUP 01906 LDL Cholesterol 89 mg/dL 09/04/2018 U nknown GFR CALC 3489748 GFR Non Afr Amr >60 mL/min 09/04/2018 Un known GFR CALC 4137423 GFR Afr Amr >60 mL/min 09/04/2018 Unknow n THYROID STIMULATING HORMONE 64968 TSH 0.713 uIU/mL 09/04/2018 Unknown PSA EQUIMOLAR BARBIE 95838 PSA Total 0.66 ng/mL 8 Unknown A FOOD C P [id number] [place] Cl Class 0 11/17/2017 Unknown A FOOD C P [id number] [place] Ct <0.35 kU/L 11/17/2017 Unknow n A FOOD C P 8555149 [place] Cl Class 0 11/17/2017 Unkn own A FOOD C P [id number] [place] Ct <0.35 kU/L 11/17/2017 Unk nown A FOOD C P [id number] Egg White Cl Class 0 11/17/2017 Unkno wn A FOOD C P 5257597 Egg White Ct <0.35 kU/L 11/17/2017 Unkn own A FOOD C P 6065956 Egg Yolk Cl Class 0 11/17/2017 Unknow n A FOOD C P 4341234 Egg Yolk Ct <0.35 kU/L 11/17/2017 Unkno wn A FOOD C P 8304950 Cow Milk Cl Class 0 11/17/2017 Unknow n A FOOD C P 2460715 Cow Milk Ct <0.35 kU/L 11/17/2017 Unkno wn A FOOD C P 6210111 Peanut Cl Class 0 11/17/2017 Unknown A FOOD C P 1694113 Peanut Ct <0.35 kU/L 11/17/2017 Unknown A FOOD C P 7494796 Shrimp Cl Class 0 11/17/2017 Unknown A FOOD C P 8385329 Shrimp Ct <0.35 kU/L 11/17/2017 Unknown A FOOD C P 9786056 Soy[place] Cl Class 0 11/17/2017 Unknown A FOOD C P 6535559 [place] Ct <0.35 kU/L 11/17/2017 Unknow n A FOOD C P 6074982 Wheat Cl Class 0 11/17/2017 Unknown A FOOD C P 0014610 Wheat Ct <0.35 kU/L 11/17/2017 Unknown A FOOD C P 5639969 Potato Cl Class 0 11/17/2017 Unknown A FOOD C P 0134893 Potato Ct <0.35 kU/L 11/17/2017 Unknown A FOOD C P 1499653 Beef Cl Class 2 11/17/2017 Unknown A FOOD C P 4499586 Beef Ct 0.88 kU/L 11/17/2017 Unknown A FOOD C P 6324803 [place] Cl Class 0 11/17/2017 Unknown A FOOD C P 8560135 [place] Ct <0.35 kU/L 11/17/2017 Unknown A FOOD C P 9333671 Pork Cl Class 0 11/17/2017 Unknown A FOOD C P 6557056 Pork Ct <0.35 kU/L 11/17/2017 Unknown A FOOD C P 8775919 [place] Cl Class 0 11/17/2017 Unknown A FOOD C P 0979650 [place] Ct <0.35 kU/L 11/17/2017 Unknown A FOOD C P [id number] [place] Cl Class 0 11/17/2017 Unkn own A FOOD C P 4249612 [place] Ct <0.35 kU/L 11/17/2017 Unk nown A FOOD C P 2687706 Tom[place] Cl Class 0 11/17/2017 Unknown A FOOD C P 7569065 [place]ato Ct <0.35 kU/L 11/17/2017 Unknown A FOOD C P 4849070 Tuna Cl Class 0 11/17/2017 Unknown A FOOD C P 5404853 Tuna Ct <0.35 kU/L 11/17/2017 Unknown A FOOD C P 1649081 [place] CL Class 0 11/17/2017 Unknown A FOOD C P 1572922 [place] <0.35 kU/L 11/17/2017 Unknown A FOOD C P 5922934 Case[place] Cl Class 0 11/17/2017 Unknown A FOOD C P 4048601 [place] Ct <0.35 kU/L 11/17/2017 Unknown A FOOD C P 4157431 Oat Cl Class 0 11/17/2017 Unknown A FOOD C P 9433136 Oat Ct <0.35 kU/L 11/17/2017 Unknown A FOOD C P 6188222 [place] Cl Class 0 11/17/2017 Unknown A FOOD C P 6956589 [place] Ct <0.35 kU/L 11/17/2017 Unknown A FOOD C P 2643523 [place] Meat CL Class 0 11/17/2017 Un known A FOOD C P 7069762 Chicken Meat Ct <0.35 kU/L 11/17/2017 U nknown A FOOD C P 1909479 [place] Cl Class 0 11/17/2017 Unknown A FOOD C P 0089441 [place] Ct <0.35 kU/L 11/17/2017 Unknown A FOOD C P 5443019 [place] Meat Cl Class 0 11/17/2017 Unkn own A FOOD C P [id number] [place]ec[place] Meat Ct <0.35 kU/L 11/17/2017 Unk nown A NUTS PNL 8083959 Peanut Cl Class 0 11/17/2017 Unknown A NUTS PNL 6906081 Peanut Ct <0.35 kU/L 11/17/2017 Unknown A NUTS PNL 9542108 [place] Meat Cl Class 0 11/17/2017 Unk nown A NUTS PNL 8549694 [place] Meat Ct <0.35 kU/L 11/17/2017 Un known A NUTS PNL 2054989 [place] Cl Class 0 11/17/2017 Unkn own A NUTS PNL 0485321 [place] Ct <0.35 kU/L 11/17/2017 Unk nown A NUTS PNL 7108707 [place] Cl Class 0 11/17/2017 Unknown A NUTS PNL 9336144 [place] Ct <0.35 kU/L 11/17/2017 Unknown A NUTS PNL 1601184 [place] Cl Class 0 11/17/2017 Unknow n A NUTS PNL 9292620 [place] Ct <0.35 kU/L 11/17/2017 Unkno wn A NUTS PNL 0195826 [place] Cl Class 0 11/17/2017 Unkno wn A NUTS PNL 9490655 [place] Ct <0.35 kU/L 11/17/2017 Unkn own A NUTS PNL 8514502 [place] Cl Class 0 11/17/2017 Unknown A NUTS PNL 9322656 [place] Ct <0.35 kU/L 11/17/2017 Unknown A NUTS PNL [id number] [place] Cl Class 0 11/17/2017 Unkno wn A NUTS PNL 3002304 [place] Ct <0.35 kU/L 11/17/2017 Unkn own A NUTS PNL 9855906 Allergen Interp See Note 11/17/2017 Un known A FRT/VG P [id number] [place] Cl Class 0 11/17/2017 Unkn own A FRT/VG P [id number] [place] Ct <0.35 kU/L 11/17/2017 Unk nown A FRT/VG P 4786631 [place] Cl Class 0 11/17/2017 Unknown A FRT/VG P [id number] [place] Ct <0.35 kU/L 11/17/2017 Unknown A FRT/VG P 6998809 [place] Cl Class 0 11/17/2017 Unkn own A FRT/VG P 3292375 [place] Ct <0.35 kU/L 11/17/2017 Unk nown A FRT/VG P 2097941 [place] Cl Class 0 11/17/2017 Unknown A FRT/VG P 6042363 [place] Ct <0.35 kU/L 11/17/2017 Unknown A FRT/VG P 1839110 [place] Cl Class 0 11/17/2017 Unknown A FRT/VG P 1908411 [place] Ct <0.35 kU/L 11/17/2017 Unknown A FRT/VG P 6164301 [place] Cl Class 1 11/17/2017 Unknown A FRT/VG P 5685027 [place] Ct 0.48 kU/L 11/17/2017 Unknown A FRT/VG P 2747268 [place] Cl Class 0 11/17/2017 Unk nown A FRT/VG P 2631015 [place] Ct <0.35 kU/L 11/17/2017 Un known A FRT/VG P 1983607 [place] Cl Class 0 11/17/2017 Unk nown A FRT/VG P 1685489 [place] Ct <0.35 kU/L 11/17/2017 Un known A FRT/VG P 0233644 [place] Cl Class 0 11/17/2017 Unknown A FRT/VG P 8930027 [place] Ct <0.35 kU/L 11/17/2017 Unknown A FRT/VG P 2881295 [place] Cl Class 0 11/17/2017 Unknown A FRT/VG P 0662757 [place]a Ct <0.35 kU/L 11/17/2017 Unknown A FRT/VG P 3696327 [place] Cl Class 0 11/17/2017 Unkn own A FRT/VG P 8571785 [place] Ct <0.35 kU/L 11/17/2017 Unk nown A FRT/VG P 6652924 Swt [place] Cl Class 0 11/17/2017 Unkn own A FRT/VG P 7433224 Swt [place] Ct <0.35 kU/L 11/17/2017 Unk nown THYROID STIMULATING HORMONE 34930 TSH 1.371 uIU/mL 09/03/2017 Unknown FREE T4 18053 T4 Free 1.26 ng/dL 09/03/2017 Unknown ASSAY TRIIODOTHYRONINE (T3) 88993 T3 Total 0.9 ng/mL Unknown COMPLETE BLOOD COUNT 3164729 WBC 5.9 10e9/L 07/31/20 17 Unknown COMPLETE BLOOD COUNT 3413809 RBC 4.64 10e12/L 2016 Unknown COMPLETE BLOOD COUNT 2778793 HEMOGLOBIN 14.2 g/dL 07/31/20 17 Unknown COMPLETE BLOOD COUNT 5501239 HEMATOCRIT 42.1 % 07/31/20 17 Unknown COMPLETE BLOOD COUNT 4724315 MCV 90.7 fL 7 Unknown COMPLETE BLOOD COUNT 6558452 MCH 30.6 pg 7 Unknown COMPLETE BLOOD COUNT 4898610 MCHC 33.7 g/dL 7 Unknown COMPLETE BLOOD COUNT 0183107 PLATELET COUNT 195 10e9/L Unknown COMPLETE BLOOD COUNT 0785715 Mean Plt Volume 10.0 fL Unknown COMPLETE BLOOD COUNT 6857563 Neut Auto 47.5 % 7 Unknown COMPLETE BLOOD COUNT 2247426 Lymph Auto 37.4 % 07/31/20 17 Unknown COMPLETE BLOOD COUNT 6288539 [place]nn Auto 11.7 % 7 Unknown COMPLETE BLOOD COUNT 8171907 Eos Auto 3.2 % 7 Unknown COMPLETE BLOOD COUNT 3178508 RDW 12.8 % 7 Unknown COMPLETE BLOOD COUNT 1764404 Baso Auto 0.2 % 7 Unknown COMPLETE BLOOD COUNT 2075108 Neutrophil Abs 2.80 10e9/L Unknown COMPLETE BLOOD COUNT 7385879 Lymphocyte Abs 2.21 10e9/L Unknown COMPLETE BLOOD COUNT 1640651 Monocyte Abs 0.69 10e9/L 07/18 Unknown COMPLETE BLOOD COUNT 3806025 Eosinophil Abs 0.19 10e9/L Unknown COMPLETE BLOOD COUNT 6311576 RDW-SD 41.6 fL 7 Unknown COMPLETE BLOOD COUNT 5504500 Basophil Abs 0.01 10e9/L 07/18 Unknown LIPID GROUP 87777 Cholesterol 186 mg/dL 07/31/2017 Unkno wn LIPID GROUP 25831 Triglyceride 129 mg/dL 07/31/2017 Unkn own LIPID GROUP 44234 HDL CHOLESTEROL 79 mg/dL 07/31/2017 U nknown LIPID GROUP 50037 Chol/HDL Ratio 2.35 ratio 07/31/2017 U nknown LIPID GROUP 71327 NON-HDL Chol 107 mg/dL 07/31/2017 Unkn own LIPID GROUP 60375 LDL Cholesterol 81 mg/dL 07/31/2017 U nknown GFR CALC 2543419 GFR Non Afr Amr >60 mL/min 07/31/2017 Un known GFR CALC 4745169 GFR Afr Amr >60 mL/min 07/31/2017 Unknow n COMPREHENSIVE METABOLIC 76129 AST 19 U/L 2016 Unknown COMPREHENSIVE METABOLIC 85855 ALT 12 U/L 2016 Unknown COMPREHENSIVE METABOLIC 69229 BUN 15 mg/dL 2016 Unknown COMPREHENSIVE METABOLIC 79749 ALBUMIN 4.4 g/dL 2016 Unknown COMPREHENSIVE METABOLIC 63399 CHLORIDE 102 mmol/L 07/31 Unknown COMPREHENSIVE METABOLIC 96711 Bili Total 0.9 mg/dL 07/31 Unknown COMPREHENSIVE METABOLIC 16027 ALK PHOS 53 U/L 2016 Unknown COMPREHENSIVE METABOLIC 43463 SODIUM 138 mmol/L 07/31 Unknown COMPREHENSIVE METABOLIC 99138 CREATININE 1.06 mg/dL 07/18 Unknown COMPREHENSIVE METABOLIC 62602 CALCIUM 9.3 mg/dL 2016 Unknown COMPREHENSIVE METABOLIC 55383 POTASSIUM 4.0 mmol/L 07/31 Unknown COMPREHENSIVE METABOLIC 12850 Total Protein 6.8 g/dL Unknown COMPREHENSIVE METABOLIC 36612 Glucose 86 mg/dL 2016 Unknown COMPREHENSIVE METABOLIC 85704 Bicarbonate 28 mmol/L 07/18 Unknown COMPREHENSIVE METABOLIC 84009 AGAP 8 mmol/L 2016 Unknown COMPREHENSIVE METABOLIC 43492 AST 18 U/L 2015 Unknown COMPREHENSIVE METABOLIC 49136 ALT 9 U/L 2015 Unknown COMPREHENSIVE METABOLIC 51742 BUN 11 mg/dL 2015 Unknown COMPREHENSIVE METABOLIC 51700 ALBUMIN 4.2 g/dL 2015 Unknown COMPREHENSIVE METABOLIC 45057 CHLORIDE 104 mmol/L 05/19 Unknown COMPREHENSIVE METABOLIC 10896 Bili Total 1.2 mg/dL 05/19 Unknown COMPREHENSIVE METABOLIC 65991 ALK PHOS 54 U/L 2015 Unknown COMPREHENSIVE METABOLIC 72820 SODIUM 140 mmol/L 05/19 Unknown COMPREHENSIVE METABOLIC 96798 CREATININE 1.03 mg/dL 10/2015 Unknown COMPREHENSIVE METABOLIC 47123 CALCIUM 9.3 mg/dL 2015 Unknown COMPREHENSIVE METABOLIC 61152 POTASSIUM 4.9 mmol/L 05/19 Unknown COMPREHENSIVE METABOLIC 93356 Total Protein 6.7 g/dL Unknown COMPREHENSIVE METABOLIC 92040 Glucose 92 mg/dL 2015 Unknown COMPREHENSIVE METABOLIC 07146 Bicarbonate 28 mmol/L 10/2015 Unknown COMPREHENSIVE METABOLIC 03611 AGAP 8 mmol/L 2015 Unknown THYROID STIMULATING HORMONE 16008 TSH 1.545 uIU/mL 05/19/2016 Unknown GFR CALC 8166697 GFR Non Afr Amr >60 mL/min 05/19/2016 Un known GFR CALC 5121892 GFR Afr Amr >60 mL/min 05/19/2016 Unknow n VITAMIN B 12 74644 VITAMIN B12 298 pg/mL 05/19/2016 Unkn own COMPLETE BLOOD COUNT 3645098 WBC 5.2 10e9/L 05/19/20 16 Unknown COMPLETE BLOOD COUNT 7019144 RBC 4.34 10e12/L 2015 Unknown COMPLETE BLOOD COUNT 2498656 HEMOGLOBIN 12.9 g/dL 05/19/20 16 Unknown COMPLETE BLOOD COUNT 8628315 HEMATOCRIT 38.9 % 05/19/20 16 Unknown COMPLETE BLOOD COUNT 0523740 MCV 89.6 fL 6 Unknown COMPLETE BLOOD COUNT 8756501 MCH 29.7 pg 6 Unknown COMPLETE BLOOD COUNT 1193269 MCHC 33.2 g/dL 6 Unknown COMPLETE BLOOD COUNT 0374223 PLATELET COUNT 200 10e9/L 10/2015 Unknown COMPLETE BLOOD COUNT 8504122 Mean Plt Volume 10.1 fL 10/2015 Unknown COMPLETE BLOOD COUNT 5988537 Neut Auto 45.4 % 6 Unknown COMPLETE BLOOD COUNT 9458036 Lymph Auto 35.6 % 05/19/20 16 Unknown COMPLETE BLOOD COUNT 8911630 [place] Auto 11.9 % 6 Unknown COMPLETE BLOOD COUNT 5367451 RDW 12.7 % 6 Unknown COMPLETE BLOOD COUNT 0661002 Eos Auto 6.7 % 6 Unknown COMPLETE BLOOD COUNT 2054017 Baso Auto 0.4 % 6 Unknown COMPLETE BLOOD COUNT 4153413 Neutrophil Abs 2.36 10e9/L Unknown COMPLETE BLOOD COUNT 8905237 Lymphocyte Abs 1.85 10e9/L Unknown COMPLETE BLOOD COUNT 6996176 Monocyte Abs 0.62 10e9/L 10/2015 Unknown COMPLETE BLOOD COUNT 2158830 Eosinophil Abs 0.35 10e9/L Unknown COMPLETE BLOOD COUNT 8762269 RDW-SD 40.6 fL 6 Unknown COMPLETE BLOOD COUNT 1583027 Basophil Abs 0.02 10e9/L 10/2015 Unknown LIPID GROUP 72438 Cholesterol 197 mg/dL 05/19/2016 Unkno wn LIPID GROUP 17810 Triglyceride 92 mg/dL 05/19/2016 Unkn own LIPID GROUP 07188 HDL CHOLESTEROL 58 mg/dL 05/19/2016 U nknown LIPID GROUP 03157 Chol/HDL Ratio 3.40 ratio 05/19/2016 U nknown LIPID GROUP 38675 NON-HDL Chol 139 mg/dL 05/19/2016 Unkn own LIPID GROUP 91273 LDL Cholesterol 121 mg/dL 05/19/2016 U nknown FREE T4 40017 T4 Free 1.19 ng/dL 05/19/2016 Unknown COMPREHENSIVE METABOLIC 43931 AST 19 U/L 2014 Unknown COMPREHENSIVE METABOLIC 67658 ALT 10 IU/L 2014 Unknown COMPREHENSIVE METABOLIC 37952 BUN 20 MG/DL 2014 Unknown COMPREHENSIVE METABOLIC 06338 ALBUMIN 4.4 GM/DL 2014 Unknown COMPREHENSIVE METABOLIC 41419 CHLORIDE 104 MMOL/L 04/05 Unknown COMPREHENSIVE METABOLIC 10383 BILI TOT 2.2 MG/DL 2014 Unknown COMPREHENSIVE METABOLIC 63778 ALK PHOS 55 U/L 2014 Unknown COMPREHENSIVE METABOLIC 87084 SODIUM 138 MMOL/L 04/05 Unknown COMPREHENSIVE METABOLIC 31636 CREATININE 1.04 MG/DL 03/18 Unknown COMPREHENSIVE METABOLIC 11645 CALCIUM 9.3 MG/DL 2014 Unknown COMPREHENSIVE METABOLIC 27882 POTASSIUM 4.5 MMOL/L 04/05 Unknown COMPREHENSIVE METABOLIC 28275 PROT TOT 6.7 GM/DL 2014 Unknown COMPREHENSIVE METABOLIC 08881 Glucose 77 MG/DL 2014 Unknown COMPREHENSIVE METABOLIC 89894 BICARB 25 MMOL/L 2014 Unknown COMPREHENSIVE METABOLIC 84226 ANION GAP 9 MEQ/L 2014 Unknown GFR CALC 9261858 GFR AA >60 ML/MIN 04/05/2015 Unknown GFR CALC 9282257 GFR NON-AA >60 ML/MIN 04/05/2015 Unknown LIPID GROUP 91221 HDL TEST 60 MG/DL 04/05/2015 Unknown LIPID GROUP 29772 TRIG 70 MG/DL 04/05/2015 Unknown LIPID GROUP 69206 TEST LDL 137 MG/DL 04/05/2015 Unknown LIPID GROUP 98372 CHOL 211 MG/DL 04/05/2015 Unknown LIPID GROUP 24396 RCHOL/HDL 3.52 RATIO 04/05/2015 Unknow n LIPID GROUP 12937 NON-HDL CH 151 MG/DL 04/05/2015 Unknow n COMPLETE BLOOD COUNT 8815282 WBC 5.3 10e9/L 04/05/20 15 Unknown COMPLETE BLOOD COUNT 2861094 RBC 4.42 10e12/L 2014 Unknown COMPLETE BLOOD COUNT 6564398 HGB 13.4 g/dL 5 Unknown COMPLETE BLOOD COUNT 0874358 HCT DET 39.6 % 5 Unknown COMPLETE BLOOD COUNT 8294984 MCV 89.6 fL 5 Unknown COMPLETE BLOOD COUNT 4663513 MCH 30.3 pg 5 Unknown COMPLETE BLOOD COUNT 6413854 MCHC 33.8 g/dL 5 Unknown COMPLETE BLOOD COUNT 8071675 PLT 201 10e9/L 04/05/20 15 Unknown COMPLETE BLOOD COUNT 1517544 MPV 10.3 fL 5 Unknown COMPLETE BLOOD COUNT 7788142 LUEP % 56.4 % 5 Unknown COMPLETE BLOOD COUNT 7996822 LY % 24.8 % 5 Unknown COMPLETE BLOOD COUNT 9798722 MON % 12.8 % 5 Unknown COMPLETE BLOOD COUNT 5755744 EOS % 5.4 % 5 Unknown COMPLETE BLOOD COUNT 1659981 BASO % 0.6 % 5 Unknown COMPLETE BLOOD COUNT 3459367 RDW 13.2 % 5 Unknown COMPLETE BLOOD COUNT 2258252 ABS LUPE 2.99 10e9/L 015 Unknown COMPLETE BLOOD COUNT 8441110 ABS LYMPH 1.31 10e9/L 015 Unknown COMPLETE BLOOD COUNT 6967273 ABS MONO 0.68 10e9/L 015 Unknown COMPLETE BLOOD COUNT 8571088 ABS EOS 0.29 10e9/L 015 Unknown COMPLETE BLOOD COUNT 3909365 ABS BASO 0.03 10e9/L 015 Unknown COMPLETE BLOOD COUNT 3663056 RDW-SD 42.3 fL 5 Unknown LIPID GROUP 76560 HDL TEST 51 MG/DL 07/19/2012 Unknown LIPID GROUP 16282 TRIG 129 MG/DL 07/19/2012 Unknown LIPID GROUP 77921 TEST LDL 98 MG/DL 07/19/2012 Unknown LIPID GROUP 78521 CHOL 175 MG/DL 07/19/2012 Unknown LIPID GROUP 71141 RCHOL/HDL 3.43 RATIO 07/19/2012 Unknow n COMPREHENSIVE METABOLIC 98146 AST 18 U/L 2011 Unknown COMPREHENSIVE METABOLIC 10357 ALT 12 IU/L 2011 Unknown COMPREHENSIVE METABOLIC 37813 BUN 10 MG/DL 2011 Unknown COMPREHENSIVE METABOLIC 20202 ALBUMIN 4.1 GM/DL 2011 Unknown COMPREHENSIVE METABOLIC 42423 CHLORIDE 103 MMOL/L 07/19 Unknown COMPREHENSIVE METABOLIC 29763 BILI TOT 0.9 MG/DL 2011 Unknown COMPREHENSIVE METABOLIC 97917 ALK PHOS 62 U/L 2011 Unknown COMPREHENSIVE METABOLIC 19943 SODIUM 138 MMOL/L 07/19 Unknown COMPREHENSIVE METABOLIC 42270 CREATININE 1.08 MG/DL 10/2011 Unknown COMPREHENSIVE METABOLIC 59352 CALCIUM 9.1 MG/DL 2011 Unknown COMPREHENSIVE METABOLIC 45161 POTASSIUM 4.2 MMOL/L 07/19 Unknown COMPREHENSIVE METABOLIC 80785 PROT TOT 6.7 GM/DL 2011 Unknown COMPREHENSIVE METABOLIC 70792 Glucose 101 MG/DL 2011 Unknown COMPREHENSIVE METABOLIC 27503 BICARB 27 MMOL/L 2011 Unknown COMPREHENSIVE METABOLIC 32826 ANION GAP 8 MEQ/L 2011 Unknown GFR CALC 3635438 GFR AA >60 ML/MIN 07/19/2012 Unknown GFR CALC 1256042 GFR NON-AA >60 ML/MIN 07/19/2012 Unknown Procedures Procedure Codes Date ROUTINE VENIPUNCTURE CPT-4: 29957 09/24/2019 THER/PROPH/DIAG INJ SC/IM CPT-4: 63819 01/13/2019 TRIAMCINOLONE ACET INJ NOS CPT-4: J3301 01/13/2019 DEXAMETHASONE SODIUM PHOS CPT-4: J1100 01/13/2019 ROUTINE VENIPUNCTURE CPT-4: 95810 09/04/2018 COMPREHEN METABOLIC PANEL CPT-4: 17592 09/04/2018 COMPLETE CBC W/AUTO DIFF WBC CPT-4: 16467 09/04/2018 LIPID PANEL CPT-4: 58678 09/04/2018 ASSAY OF PSA TOTAL CPT-4: 00198 09/04/2018 ASSAY THYROID STIM HORMONE CPT-4: 66698 09/04/2018 URINALYSIS NONAUTO W/O SCOPE CPT-4: 18326 05/15/2018 ROUTINE VENIPUNCTURE CPT-4: 42910 11/16/2017 A FRT/VG P CPT-4: 1475922 11/16/2017 A FOOD C P CPT-4: 8664615 11/16/2017 A NUTS PNL CPT-4: 1759040 11/16/2017 THER/PROPH/DIAG INJ SC/IM CPT-4: 10783 11/06/2017 TRIAMCINOLONE ACET INJ NOS CPT-4: J3301 11/06/2017 DEXAMETHASONE SODIUM PHOS CPT-4: J1100 11/06/2017 ROUTINE VENIPUNCTURE CPT-4: 73028 09/03/2017 ASSAY OF FREE THYROXINE CPT-4: 05731 09/03/2017 ASSAY THYROID STIM HORMONE CPT-4: 91959 09/03/2017 ASSAY TRIIODOTHYRONINE (T3) CPT-4: 16558 09/03/2017 ROUTINE VENIPUNCTURE CPT-4: 61611 07/31/2017 COMPREHEN METABOLIC PANEL CPT-4: 90811 07/31/2017 COMPLETE CBC W/AUTO DIFF WBC CPT-4: 49823 07/31/2017 LIPID PANEL CPT-4: 66229 07/31/2017 FLU VACC PRSV FREE INC ANTIG 65 AND OLDER CPT-4: 42053 07/04/2017 ADMIN INFLUENZA VIRUS VAC CPT-4: G0008 07/04/2017 ROUTINE VENIPUNCTURE CPT-4: 21584 02/26/2017 ASSAY THYROID STIM HORMONE CPT-4: 54754 02/26/2017 COMPREHEN METABOLIC PANEL CPT-4: 40906 02/26/2017 COMPLETE CBC W/AUTO DIFF WBC CPT-4: 21220 02/26/2017 LIPID PANEL CPT-4: 66273 02/26/2017 ASSAY OF PSA TOTAL CPT-4: 06761 02/26/2017 FLUZONE, 5ML (Medicare) CPT-4: Q2038 06/28/2016 ADMIN INFLUENZA VIRUS VAC CPT-4: G0008 06/28/2016 ROUTINE VENIPUNCTURE CPT-4: 02869 05/19/2016 ASSAY OF FREE THYROXINE CPT-4: 25006 05/19/2016 ASSAY THYROID STIM HORMONE CPT-4: 22646 05/19/2016 COMPREHEN METABOLIC PANEL CPT-4: 73825 05/19/2016 COMPLETE CBC W/AUTO DIFF WBC CPT-4: 18165 05/19/2016 LIPID PANEL CPT-4: 16443 05/19/2016 VITAMIN B-12 CPT-4: 36711 05/19/2016 PPPS, initial visit CPT-4: G0438 05/10/2016 ROUTINE VENIPUNCTURE CPT-4: 12091 04/05/2015 ASSAY THYROID STIM HORMONE CPT-4: 41268 04/05/2015 COMPREHEN METABOLIC PANEL CPT-4: 82606 04/05/2015 COMPLETE CBC W/AUTO DIFF WBC CPT-4: 62681 04/05/2015 LIPID PANEL CPT-4: 07223 04/05/2015 ASSAY OF PSA TOTAL CPT-4: 05699 04/05/2015 ROUTINE VENIPUNCTURE CPT-4: 25672 07/19/2012 COMPREHEN METABOLIC PANEL CPT-4: 64417 07/19/2012 LIPID PANEL CPT-4: 99504 07/19/2012 ELECTROCARDIOGRAM COMPLETE CPT-4: 98260 03/22/2012 Vital Signs Date Vital 09/24/2019 Blood Pressure 1: 125/72 Code: 8480-6 BMI: 19.8 Code: 87484-1 Heart Rate 1: 88 bpm Height: 5'11" [...] 1: 102/60 Code: 8480-6 BMI: 19.1 Code: 58600-0 Heart Rate 1: 82 bpm Height: 5'11" Respiratory Rate: 22 bpm SpO2: 97% Tempera ture: 36.4 (C) / 97.6 (F) Weight: 137 lbs 04/25/2018 Blood Pressure 1: 118/64 Code: 8480-6 BMI: 19.2 Code: 95608-5 Heart Rate 1: 98 bpm Height: 5'11" Respiratory Rate: 20 bpm SpO2: 99% Tempera ture: 36.4 (C) / 97.6 (F) Weight: 138 lbs 11/06/2017 Blood Pressure 1: 108/68 Code: 8480-6 BMI: 18.5 Code: 69486-5 Heart Rate 1: 68 bpm Height: 5'11" Respiratory Rate: 20 bpm SpO2: 96% Tempera ture: 36.8 (C) / 98.2 (F) Weight: 133 lbs 09/03/2017 Blood Pressure 1: 122/64 Code: 8480-6 BMI: 17.6 Code: 38242-9 Heart Rate 1: 90 bpm Height: 5'11" Respiratory Rate: 20 bpm SpO2: 98% Tempera ture: 36.4 (C) / 97.6 (F) Weight: 126 lbs 08/21/2017 Blood Pressure 1: 114/80 Code: 8480-6 BMI: 17.9 Code: 30440-7 Heart Rate 1: 80 bpm Height: 5'11" Respiratory Rate: 20 bpm SpO2: 95% Tempera ture: 36.6 (C) / 97.9 (F) Weight: 128 lbs 02/13/2017 Blood Pressure 1: 122/60 Code: 8480-6 BMI: 18.5 Code: 83463-2 Heart Rate 1: 76 bpm Height: 5'11" Respiratory Rate: 20 bpm SpO2: 96% Tempera ture: 36.9 (C) / 98.4 (F) Weight: 133 lbs 11/23/2016 Blood Pressure 1: 126/70 Code: 8480-6 BMI: 18.5 Code: 03586-1 Heart Rate 1: 100 bpm Height: 5'11" Respiratory Rate: 20 bpm SpO2: 96% Tempera ture: 37.1 (C) / 98.8 (F) Weight: 133 lbs 05/23/2016 Blood Pressure 1: 128/82 Code: 8480-6 BMI: 18.5 Code: 49287-3 Heart Rate 1: 88 bpm Height: 5'11" Respiratory Rate: 20 bpm Temperature: 36 .7 (C) / 98.0 (F) Weight: 133 lbs 05/10/2016 Blood Pressure 1: 146/70 Code: 8480-6 BMI: 18.5 Code: 30024-6 Heart Rate 1: 84 bpm Height: 5'11" Respiratory Rate: 20 bpm Temperature: 36 .7 (C) / 98.1 (F) Weight: 133 lbs 04/01/2015 Blood Pressure 1: 102/60 Code: 8480-6 BMI: 18.5 Code: 58835-5 Heart Rate 1: 64 bpm Height: 5'11" Respiratory Rate: 20 bpm Temperature: 36 .8 (C) / 98.2 (F) Weight: 133 lbs 01/13/2014 Blood Pressure 1: 124/78 Code: 8480-6 BMI: 19.8 Code: 80676-4 Heart Rate 1: 76 bpm Height: 5'11" Respiratory Rate: 20 bpm Temperature: 36 .8 (C) / 98.2 (F) Weight: 142 lbs 04/03/2012 Blood Pressure 1: 106/76 Code: 8480-6 BMI: 20.9 Code: 61000-0 Heart Rate 1: 84 bpm Height: 5'11" Respiratory Rate: 20 bpm Temperature: 36 .7 (C) / 98.0 (F) Weight: 150 lbs 12/20/2011 Blood Pressure 1: 116/60 Code: 8480-6 BMI: 20.1 Code: 37379-9 Heart Rate 1: 80 bpm Height: 5'11" Respiratory Rate: 20 bpm Temperature: 36 .4 (C) / 97.6 (F) Weight: 144 lbs 10/24/2011 Blood Pressure 1: 132/74 Code: 8480-6 BMI: 19.7 Code: 80973-2 Heart Rate 1: 96 bpm Height: 5'11" [...] 04/05/2015 follow up 04/01/2015 follow up 01/13/2014 Hospital fwup from Justin Palacio'justin in November 2012 lab draw 07/19/2012 follow up 04/03/2012 S/P stent placement in LAD, changed effient to plavix hip pain 12/20/2011 dyskinesia or tremor 10/24/2011 follow up 03/13/2011 started on effient, zocor, and atenolol follow up 02/20/2011 Hospital Fwup/Dr Christian rojas follow up 02/23/2010 [facility], appt with Dr Bajwa 03/22/10 insomnia 01/12/2010 problems falling and staying asleep, takes nortriptyline Encounters Encounter Performer Location Codes Date ([id number]) OFFICE/OUTPATIENT VISIT EST Diagnosis: Encounter for therapeutic drug level monitoring[ICD10: Z51.81] Diagnosis: Essential tremor[ICD10: G25.0] Verna Alvarez [employer] CPT-4: 82283 09/24/2019 ([id number]) OFFICE/OUTPATIENT VISIT EST Diagnosis: Noninfective gastroenteritis and colitis, unspecified[ICD10: K52.9] Diagnosis: Hemorrhage of anus and rectum[ICD10: K62.5] Vonnie Reid ASCENCIOLINE Denia KerecisRAHEEM [employer] CPT-4: 19189 05/26/2019 ([id number]) OFFICE/OUTPATIENT VISIT EST Diagnosis: Other intervertebral disc degeneration, 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] Diagnosis: Other forms of dyspnea[ICD10: R06.09] Vonnie Bowman JOELLETAYLOR VISHAL Loza [employer] CPT-4: 64186 03/17/2019 OFFICE/OUTPATIENT VISIT EST Diagnosis: Other intervertebral disc degeneration, 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] Diagnosis: Other symptoms and signs involving the musculoskeletal system[ICD10: R29.898] Vonnie Reid VONNIE Denia [employer] CPT-4: 49446 02/18/2019 ([id number]) OFFICE/OUTPATIENT VISIT EST Diagnosis: Other allergic rhinitis[ICD10: J30.89] Akilah GASPAR Denia [employer] CPT-4: 77861 01/13/2019 ([id number]) NURSE/OUTPATIENT VISIT EST Diagnosis: Mixed hyperlipidemia[ICD10: E78.2] Diagnosis: Essential (primary) hypertension[ICD10: I10] Diagnosis: Encounter for screening for malignant neoplasm of prostate[ICD10: Z12.5] Diagnosis: Encounter for general adult medical examination with abnormal findings[ICD10: Z00.01] Diagnosis: Benign prostatic hyperplasia without lower urinary tract symptoms[ICD10: N40.0] Vonnie MATHEWS DO [facility] CPT-4: 61428 09/04/2018 ([id number]) OFFICE/OUTPATIENT VISIT EST Diagnosis: Otorrhea, left ear[ICD10: H92.12] Diagnosis: Impacted cerumen, right ear[ICD10: H61.21] Verna MATHEWS DO [facility] CPT-4: 09740 09/03/2018 ([id number]) OFFICE/OUTPATIENT VISIT EST Diagnosis: Other intervertebral disc degeneration, 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] Diagnosis: Primary insomnia[ICD10: F51.01] Diagnosis: Essential tremor[ICD10: G25.0] Vonnie MATHEWS DO [facility] CPT-4: 75615 08/26/2018 ([id number]) OFFICE/OUTPATIENT VISIT EST Diagnosis: Pelvic and perineal pain[ICD10: R10.2] Verna MATHEWS [facility] CPT-4: 97159 05/15/2018 ([id number]) OFFICE/OUTPATIENT VISIT EST Diagnosis: Encounter for therapeutic drug level monitoring[ICD10: Z51.81] Diagnosis: Acute sinusitis, unspecified[ICD10: J01.90] Diagnosis: Other intervertebral disc degeneration, 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] Diagnosis: Essential tremor[ICD10: G25.0] Diagnosis: Raynaud's syndrome without gangrene[ICD10: I73.00] Verna MATHEWS DO [facility] CPT-4: 60037 04/25/2018 ([id number]) OFFICE/OUTPATIENT VISIT EST Diagnosis: Idiopathic urticaria[ICD10: L50.1] Diagnosis: Other urticaria[ICD10: L50.8] Vonnie MATHEWS DO [facility] CPT-4: 30027 11/16/2017 ([id number]) OFFICE/OUTPATIENT VISIT EST Diagnosis: Idiopathic urticaria[ICD10: L50.1] Diagnosis: Other urticaria[ICD10: L50.8] Diagnosis: Other forms of dyspnea[ICD10: R06.09] Vonnie BREWERNE Denia MATHEWS [facility] CPT-4: 68724 11/06/2017 ([id number]) OFFICE/OUTPATIENT VISIT EST Diagnosis: Dyspnea, unspecified[ICD10: R06.00] Diagnosis: Abnormal weight loss[ICD10: R63.4] Vonnie DOUGLASS REA MATHEWS [employer] [facility] CPT-4: 80087 09/03/2017 ([id number]) OFFICE/OUTPATIENT VISIT EST 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] Diagnosis: Mixed hyperlipidemia[ICD10: E78.2] Diagnosis: Essential tremor[ICD10: G25.0] Diagnosis: Essential (primary) hypertension[ICD10: I10] Diagnosis: Abnormal weight loss[ICD10: R63.4] Vonnie LUCIA Denia MATHEWS [employer] [facility] CPT-4: 69895 08/21/2017 ([id number]) OFFICE/OUTPATIENT VISIT EST Diagnosis: Mixed hyperlipidemia[ICD10: E78.2] Diagnosis: Essential (primary) hypertension[ICD10: I10] 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] Diagnosis: Anemia, unspecified[ICD10: D64.9] Vonnie Galarza Denia BOWMAN [employer] [facility] CPT-4: 17168 07/31/2017 ([id number]) OFFICE/OUTPATIENT VISIT EST Diagnosis: FLU VACCINE[ICD10: Z23] Vonnie COLMENARES Denia BOWMAN [employer] [facility] CPT-4: 66242 07/04/2017 ([id number]) OFFICE/OUTPATIENT VISIT EST Diagnosis: Mixed hyperlipidemia[ICD10: E78.2] Diagnosis: Essential tremor[ICD10: G25.0] 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] Diagnosis: Essential (primary) hypertension[ICD10: I10] Diagnosis: Supraventricular tachycardia[ICD10: I47.1] Diagnosis: Other fatigue[ICD10: R53.83] Diagnosis: Encounter for screening for malignant neoplasm of prostate[ICD10: Z12.5] Vonnie COLMENARES JustinKim COLBY [employer] [facility] CPT-4: 03311 02/26/2017 ([id number]) OFFICE/OUTPATIENT VISIT EST Diagnosis: Essential tremor[ICD10: G25.0] Vonnie MATHEWS DO [facility] CPT-4: 03696 02/13/2017 ([id number]) OFFICE/OUTPATIENT VISIT EST Diagnosis: Essential tremor[ICD10: G25.0] Diagnosis: Other intervertebral disc degeneration, 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] Vonnie MATHEWS DO [facility] CPT-4: 68570 11/23/2016 ([id number]) OFFICE/OUTPATIENT VISIT EST Diagnosis: FLU VACCINE[ICD10: Z23] Vonnie GERMAN DO [facility] CPT-4: 19575 06/28/2016 OFFICE/OUTPATIENT VISIT EST Diagnosis: Open bite of right hand, initial encounter[ICD10: S61.451A] Vonnie MATHEWS DO [facility] CPT-4: 75099 05/23/2016 ([id number]) OFFICE/OUTPATIENT VISIT EST Diagnosis: Encounter for general adult medical examination with abnormal findings[ICD10: Z00.01] Diagnosis: Mixed hyperlipidemia[ICD10: E78.2] Diagnosis: Essential tremor[ICD10: G25.0] 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] Vonnie MATHEWS DO [facility] CPT-4: 63239 05/19/2016 ([id number]) OFFICE/OUTPATIENT VISIT EST Diagnosis: HYPERLIPIDEMIA NEC/NOS[ICD9: 272.4] Diagnosis: CAD[ICD9: 414.00] Diagnosis: TACHYCARDIA[ICD9: 785.0] Diagnosis: HYPERTENSION[ICD9: 401.9] Diagnosis: Routine medical exam[ICD9: V70.0] Vonnie MATHEWS DO [facility] CPT-4: 22295 04/05/2015 ([id number]) OFFICE/OUTPATIENT VISIT EST Diagnosis: HYPERTENSION[ICD9: 401.9] Diagnosis: HYPERLIPIDEMIA NEC/NOS[ICD9: 272.4] Diagnosis: CAD[ICD9: 414.00] Diagnosis: LUMB/LUMBOSAC DISC DEGEN[ICD9: 722.52] Vonnie Colbyranjan DOLLY GASPAR Denia MATHEWS DO [facility] CPT-4: 51387 04/01/2015 ([id number]) OFFICE/OUTPATIENT VISIT EST Diagnosis: CHEST PAIN NOS[ICD9: 786.50] Diagnosis: PAIN IN THORACIC SPINE[ICD9: 724.1] Diagnosis: HYPERTENSION[ICD9: 401.9] Diagnosis: GERD[ICD9: 530.81] Vonnie SCHULTZNDER [facility] CPT-4: 69932 01/13/2014 ([id number]) OFFICE/OUTPATIENT VISIT EST Diagnosis: CAD[ICD9: 414.00] Diagnosis: HYPERLIPIDEMIA NEC/NOS[ICD9: 272.4] Vonnie CERVANTES WILFRIDO SKim ROMULONDER DO [facility] CPT-4: 81618 07/19/2012 ([id number]) OFFICE/OUTPATIENT VISIT EST Diagnosis: CAD[ICD9: 414.00] Diagnosis: INSOMNIA NOS[ICD9: 780.52] Vonnie Romuloraheemranjan LAIVONNIE JustinKim OR YULISA [facility] CPT-4: 02998 04/03/2012 ([id number]) OFFICE/OUTPATIENT VISIT EST Diagnosis: CHEST PAIN NOS[ICD9: 786.50] Diagnosis: CAD[ICD9: 414.00] Vonnie MaciasKim ROMULONDER DO [facility] CPT-4: 74683 03/22/2012 ([id number]) OFFICE/OUTPATIENT VISIT EST Diagnosis: PROSTATITIS[ICD9: 601.9] Diagnosis: TREMOR NEC[ICD9: 333.1] Vonnie ACSENCIOLINE JustinKim ROMULOND ER DO [facility] CPT-4: 13651 12/20/2011 OFFICE/OUTPATIENT VISIT EST Diagnosis: TREMOR NEC[ICD9: 333.1] Diagnosis: TACHYCARDIA[ICD9: 785.0] Diagnosis: HYPERTENSION[ICD9: 401.9] Vonnie Romuloraheemranjan LAIVONNIE JustinKim ORE NDER DO [facility] CPT-4: 64215 10/24/2011 OFFICE/OUTPATIENT VISIT EST Vonnie ASCENCIOLINE JustinKim ROMULO NDER DO [facility] CPT- 4: 44429 03/13/2011 ([id number]) OFFICE/OUTPATIENT VISIT EST Vonnie Mathews DOLLY HawkVISHAL SK[employer] ORENDER DO [facility] CPT-4: 40276 02/20/2011 ([id number]) OFFICE/OUTPATIENT VISIT, GINETTE MATHEWS DO [employer] CPT-4: 67588 02/23/2010 ([id number]) OFFICE/OUTPATIENT VISIT, EST Vonnie MATHEWS DO [employer] CPT-4: 38019 01/12/2010 Plan of Care Planned Activity Notes Codes Status Date Appointment: Verna Ramirez [address] [facility] [place] RESCHEDULED 09/25/2019 Visit Diagnosis Plan: Essential tremor Discussion: sta ble on clonazepam. educated patient about purchasing a large, heavy pen that will allow him to improve his writing. instructed him that pens can be purchased on [employer]. ICD-9 : 333.1 ICD-10 : G25.0 09/24/2019 Visit Diagnosis Plan: Encounter for therapeutic drug l evel monitoring Discussion: UDS and contract completed today. ICD-9 : V58.83 ICD-10 : Z51.81 09/24/2019 Appointment: Verna Ramirez [address] [place], [place] [phone] MEDICATION REVIEW 09/24/2019 Visit Diagnosis Plan: Noninfective gastroenteritis and colitis, unspecified Discussion: Flagyl [place] diet Update colonoscopy ICD-9 : 558.9 ICD-10 : K52.9 05/26/2019 Visit Diagnosis Plan: Hemorrhage of anus and rectum Di scussion: Update colonoscopy ICD-9 : 569.3 ICD-10 : K62.5 05/26/2019 Appointment: Vonnie Mathews WPtel: [address] [place], [place] [phone] [place] record request faxed 05/23; LM with medical records 05/26/19 Hospital Follow Up 05/26/2019 Care Plan: Referral Order SNOMED-CT : [id number] Pending 05/26/2019 Visit Diagnosis Plan: Other intervertebral disc degene ration, lumbar region Discussion: Increase lyrica to 150mg po q HS Continue stretches from PT [facility] Fwup after that appointment ICD-9 : 722.52 ICD-10 : M51.36 03/17/2019 Appointment: Vonnie Mathews WPtel: [address] [place] [address] [place] FOLLOW UP 03/17/2019 Visit Diagnosis Plan: Other intervertebral disc degene ration, lumbar region Discussion: Start PT Referral for epidural Will start lyrica 75mg po q HS once CT scan results obtained Mary Kay hernandez Follow Up: 3 weeks ICD-9 : 722.52 [...] : R29.898 02/18/2019 Appointment: Vonnie Mathews WPtel: [address] [place] [address] FOLLOW UP 02/18/2019 Appointment: Vonnie Mathews WPtel: [address] [place] [address] [place] CANCELED 02/18/2019 Visit Diagnosis Plan: Other [...] : J30.89 01/13/2019 Appointment: Akilah Lopez [facility] [place] [address] [place] Due for annual wellness ACUTE ILLNESS 01/14/20 Appointment: Vonnie Mathews WPtel: [address] [place], [place] [phone] [place] LAB 09/04/2018 Visit Diagnosis Plan: Impacted [...] ICD-10 : H92.12 09/03/2018 Appointment: Verna Ramirez [address] [place] [address] ACUTE ILLNESS 09/03/2018 Visit Diagnosis Plan: Primary [...] M51.36 08/26/2018 Appointment: Vonnie Mathews WPtel: [phone] [facility] [place] FOLLOW UP 08/26/2018 Visit Diagnosis Plan: [...] ICD-10 : R10.2 05/15/2018 Appointment: Verna Ramirez [address] [place], [place] [id number] ACUTE ILLNESS 05/15/2018 Patient Education: Patient Medication Summary Completed 05/15/2018 Care Plan: US EXAM PELVIC COMPLETE scrotal LOINC : 28313-7 Pending 05/15/2018 Visit Diagnosis Plan: Other intervertebral [...] ICD-10 : I73.00 04/25/2018 Appointment: Verna Ramirez [address] [place] [address] MEDICATION REVIEW 04/25/2018 Patient Education: Patient Medication Summary Completed 04/25/2018 Appointment: Vonnie Mathewstel: [address] [place] [address] 11/16/2017 Patient Education: Patient Medication Summary Completed [...] : L50.1 11/06/2017 Appointment: Vonnie Mathews WPtel: [address] [place] [address] FOLLOW UP 11/06/2017 Patient Education: Patient Medication [...] : R63.4 09/03/2017 Appointment: Vonnie Mathews WPtel: [address] [place], [place] [phone] FOLLOW UP 09/03/2017 Patient Education: Patient Medication [...] Diagnosis Plan: Atherosclerotic he art disease of [place] coronary artery without angina pectoris Discussion: Sees Cardiology in 2 days To ER if CP returns before ICD-9 : 414.00 ICD-10 : I25.10 08/21/2017 Appointment: Vonnie Mathews WPtel: [address] [place], [place] [phone] FOLLOW UP 08/21/2017 Patient Education: Patient Medication Summary Completed 08/21/2017 Appointment: Vonnie Mathewstel: [address] [place], [place] [phone] [place] LAB 07/31/2017 Patient Education: Patient Medication Summary Completed 07/31/2017 Appointment: Vonnie Mathews WPtel: [address] [place], [place] [id number] [place] INJECTION 07/04/2017 Patient Education: Patient Medication Summary Completed 07/04/2017 Appointment: Vonnie Mathews WPtel: [address] [place], [place] [phone] [place] LAB 02/26/2017 Patient Education: Patient Medication Summary Completed 02/26/2017 Visit Diagnosis Plan: Essential tremor Discussion: Con tinue clonazepam at 1mg q AM and primidone 50mg q HS Follow Up: 3 months ICD-9 : 333.1 ICD-10 : G25.0 02/13/2017 Appointment: Vonnie Mathews WPtel: [address] [place], [place] [phone] 02/08 confirmed~sl FOLLOW UP 02/13/2017 Patient Education: Patient Medication Summary Completed 02/13/2017 Appointment: Vonnie Mathews WPtel: [address] [place], [place] [phone] RESCHEDULED 01/23/2017 Visit Diagnosis Plan: Other intervertebral disc degene ration, lumbar region Discussion: DC oxycodone Tramadol 50mg 1-2 po TID prn pain Follow Up: 2 months ICD-9 : 722.52 ICD-10 : M51.36 11/23/2016 Visit Diagnosis Plan: Essential tremor Discussion: Inc rease clonazepam to 1mg po BID Discussed sinemet ICD-9 : 333.1 ICD-10 : G25.0 11/23/2016 Appointment: Vonnie Mathews WPtel: [address] [place], [place] [phone] [place] 11/22 confirmed~sl MEDICATION REVIEW 11/23/2016 Patient Education: Patient Medication Summary Completed 11/23/2016 Patient Education: [facility] - [employer] - Clonazepam - 18-64 - Dynamic Portal ID Completed 11/23/2016 Appointment: Vonnie Mathews WPtel: [address] [place], [place] [phone] [place] INJECTION 06/28/2016 Patient Education: Patient Medication Summary Completed 06/28/2016 Referral: Fernando Day WPtel: #[address] [facility] Shilpa Lopez [phone] per Maribeth, the patient is sched uled [...] if worsening 05/23/2016 Appointment: Vonnie Mathews WPtel: [address] [place] [address] ER Follow UP 05/23/2016 Patient Education: Patient Medication Summary Completed 05/23/2016 Appointment: Vonnie Mathews WPtel: [phone] [place], [place] [phone] [place] LAB 05/19/2016 Patient Education: Patient Medication Summary Completed 05/19/2016 Visit Plan: Change coreg to 3.125mg BID Trial of low dose clonazepam 0.5mg BID for tremors Fwup with Dr. Ramsey as scheduled Return for fasting lab--CBC, CMP, TSH, free T4, Lipids, PSA, B12 Proceed with Colonoscopy 05/10/2016 Appointment: Vonnie Mathews WPtel: [address] [place], [place] [phone] 05/09 confirmed~sl Annual Well Visit 05/10/2016 Patient Education: Patient Medication Summary Completed 05/10/2016 Care Plan: Referral Order SNOMED-CT : 30 [id number] Pending 05/10/2016 Appointment: Vonnie Mathews WPtel: [phone] [phone] [place] Rescheduled for 05/10/16 at 2PM~lb RESCHEDULED 04/26/2016 Referral: Danilo Ramsey WPtel: [phone] [id number] [place] Referral Initiated 04/29/2015 Appointment: Vonnie Mathews WPtel: [address] [place], [place] [phone] [place] LAB 04/05/2015 Patient Education: Patient Medication Summary Completed 04/05/2015 Visit Plan: Return in AM for fasting lab --CMP, lipids, CBC, TSH, PSA Change hydrocodone to oxycodone 7.5/325mg 1-2 po TID Schedule with cardiology Needs colonoscopy once cardiology evaluation complete Will need to restart chol meds after lab Recheck 1mo on pain meds 04/01/2015 Appointment: Vonnie Mathews WPtel: [address] [place], [place] [phone] [place] 03/31 confirmed -mf PHYSICAL 04/01/2015 Patient Education: Patient Medication Summary Completed 04/01/2015 Appointment: Vonnie Mathews WPtel: [address] [place], [place] [phone] Annual Well Visit 09/23/2014 Visit Plan: Continue protonix Pt has fwu p with Card next month Rec chiropracter or PT for ribs/thoracics being out and could be contributing to chest pain 01/13/2014 Appointment: Vonnie Mathews WPtel: [address] [place], [place] [phone] [place] FOLLOW UP 01/13/2014 Patient Education: Patient Medication Summary Completed 01/13/2014 Appointment: Ariella Mcnally WPtel: [address] [place], [place] [phone] [place] FOLLOW UP 12/12/2013 Appointment: Malika Cárdenas WPtel: [address] [place] [address] PHYSICAL 12/12/2013 Appointment: Vonnie Mathews WPtel: [address] [place], [place] [id number] ACUTE ILLNESS 02/20/2013 Appointment: Vonnie Mathews WPtel: [address] [place] [address] [place] LAB 07/19/2012 Patient Education: Patient Medication Summary Completed 07/19/2012 Appointment: Vonnie Mathewstel: [address] [place] [address] FOLLOW UP 04/03/2012 Patient Education: Patient Medication Summary Completed 04/03/2012 Appointment: Vonnie Mathews WPtel: [address] [place] [address] ACUTE ILLNESS 03/22/2012 Patient Education: Patient Medication Summary Completed 03/22/2012 Appointment: Vonnie Mathewstel: [address] [place] [address] FOLLOW UP 12/26/2011 Visit Plan: Add Cipro Continue current m eds 12/20/2011 Appointment: Vonnie Mathews WPtel: [address] [place] [address] ACUTE ILLNESS 12/20/2011 Patient Education: Patient Medication Summary Completed 12/20/2011 Visit Plan: Change neurontin to Cymbalta 30mg for 1wk then 60mg QD Add Propranolol for tremor 10/24/2011 Appointment: Vonnie Mathewstel: [address] [place] [address] ACUTE ILLNESS 10/24/2011 Appointment: Vonnie Mathewstel: [address] [place] [address] ACUTE ILLNESS 10/24/2011 Patient Education: Patient Medication Summary Completed 10/24/2011 Visit Plan: Continue current meds and fw up with Card as scheduled 03/13/2011 Appointment: Vonnie Mathewstel: [address] [place] [address] FOLLOW UP 03/13/2011 Patient Education: Patient Medication Summary Completed 03/13/2011 Visit Plan: Will obtain all records and lab from [facility] Discussed will likely need heart cath which pt states that Patricia did talk to him about in the hospital 02/20/2011 Appointment: Vonnie Mathews WPtel: [address] [place], [place] [phone] ACUTE ILLNESS 02/20/2011 Patient Education: Patient Medication Summary Completed 02/20/2011 Visit Plan: Cont Pepcid and Prilosec See Card for cardiac cath. 02/23/2010 Appointment: Vonnie Mathews WPtel: [address] [place], [place] [phone] FOLLOW UP 02/23/2010 Patient Education: Patient Medication Summary Completed 02/23/2010 Visit Plan: Increase Pamelor to 75mg qhs Increase Hydrocodone to 10/325mg 1-2 po q6 prn 01/12/2010 Appointment: Vonnie Mathews WPtel: [address] [place], [place] [phone] ACUTE ILLNESS 01/12/2010 Patient Education: Patient Medication Summary Completed 01/12/2010 Referral: Iván Pardo WPtel: [facility] [address] Referral Initiated Referral: Fernando Day WPtel: #1 [facility] [place] Referral Completed Referral: Fernando Day WPtel: #1 [facility] [place] Referral Appointment Requested Instructions Comment . [...]
--- OUTSIDE RECORDS SUMMARY | 2020-02-10 08:28 | XMS REPORT | CCD ---
Author Author Nash Mathews D.O. Organization [facility] Address [address] [place] [address] Phone Care Team Providers Care Senior Linux Unix Administrator Name Role Phone Vonnie Mathews D.O., PP Unavailable CCM Unavailable Summary Purpose Interface Exchange Insurance Providers Payer name Policy type / Coverage type Covered constitution party ID Effective Begin Date Effective End Date WPS MEDICARE PART B [place] Part B [id number] 2018 Unknown Family History Family History data not found Social History Social History Element Codes Description Effective Dates Marital status Unknown 10/24/[address]: 277578565 Nonsmoker 03/29/2011 Allergies, Adverse Reactions, Alerts Substance [...] Fill Instructions clonazepam 1 mg tablet RxNorm: 344744 TAKE 1 TABLET BY MOUTH EV SUSAN AM 09/23/2019 10/22/2019 Active clonazepam 1 mg tablet RxNorm: 650301 TAKE 1 TABLET BY MOUTH EV SUSAN AM 08/21/2019 09/22/2019 Inactive Singulair 10 mg tablet RxNorm: 397329 TABLET(S) 1 TABLET(S) PO QD 1 10/11/2019 Active Flagyl 500 mg tablet RxNorm: 198823 1 Tablet(s) PO TID 05/26/2019 Inactive clonazepam 1 mg tablet RxNorm: 682740 TAKE 1 TABLET BY MOUTH EV SUSAN MORNING 05/23/2019 06/21/2019 Inactive pravastatin 20 mg tablet RxNorm: 389258 1 Tablet(s) PO QD 04/14/2019 10/10/2019 Active Needs updated fasting labs Singulair 10 mg tablet RxNorm: 465938 Tablet(s) 1 TABLET(S) PO QD 0 04/14/2019 07/12/2019 Inactive clonazepam 1 mg tablet RxNorm: 925611 1 Tablet(s) PO QAM 02/21/2019 0 05/23/2019 Inactive Bevespi Aerosphere 9 mcg-4.8 mcg HFA aerosol inhaler RxNorm: 2221527 2 Puff(s) INH BID 02/19/2019 No Stop Date Active ProAir HFA 90 mcg/actuation aerosol inhaler RxNorm: 699715 2 Puff(s) INH Q4H as needed 02/19/2019 09/24/2019 Inactive metoprolol tartrate 25 mg tablet RxNorm: 064077 1/2 Tablet(s) PO BI D 02/18/2019 05/18/2019 Inactive pravastatin 20 mg tablet RxNorm: 216133 1 Tablet(s) PO QD Needs updated fasting labs 01/13/2019 04/14/2019 Inactive Needs updated fa sting labs Singulair 10 mg tablet RxNorm: 316046 Tablet(s) 1 TABLET(S) PO QD 0 01/13/2019 04/12/2019 Inactive Plavix 75 mg tablet RxNorm: 872588 Tablet(s) 1 TABLET(S) PO QD 04/201906/20/2019 Inactive [SAVINGS FOR NON-COVERED SHANDA -- BIN:793097, PCN: ASPROD1, Group: XXXXX, ID# [id number], Questions: . THIS IS NOT INSURANCE.] Singulair 10 mg tablet RxNorm: 853087 1 TABLET(S) PO QD 10/29/2018 Inactive primidone 50 mg tablet RxNorm: 771573 2 TABLET(S) PO BI D TAKE 2 TABLETS BY MOUTH EVERY NIGHT AT BEDTIME 10/07/2018 01/12/2019 Inactive Patient requests 90 days supply pravastatin 20 mg tablet RxNorm: 208335 1 TABLET(S) PO QD 09/23/2018 01/12/2019 Inactive clonazepam 1 mg tablet RxNorm: 426396 1 Tablet(s) PO QAM 09/19/2018 0 12/17/2018 Inactive primidone 50 mg tablet RxNorm: 467500 TABLET(S) TAKE 2 TABLETS BY MOUTH EVERY NIGHT AT BEDTIME 09/18/2018 01/12/2019 Inactive ciprofloxacin 0.2 % ear drops in a dropperette RxNorm: 26150 6 2 Drop(s) left otic (ear) BID 09/03/2018 09/09/2018 Inactive primidone 50 mg tablet RxNorm: 800269 2 Tablet(s) PO BI D TAKE 2 TABLETS BY MOUTH EVERY NIGHT AT BEDTIME 08/26/2018 10/06/2018 Inactive Ambien 5 mg tablet RxNorm: 053615 TAKE 1 TABLET BY MOUTH EVERY NIGHT AT BEDTIME 08/05/2018 09/03/2018 Inactive Singulair 10 mg tablet RxNorm: 238728 1 TABLET(S) PO QD 07/23/2018 Inactive clonazepam 1 mg tablet RxNorm: 577619 TAKE 1 TABLET BY MOUTH EV SUSAN MORNING 07/23/2018 08/21/2018 Inactive Plavix 75 mg tablet RxNorm: 327056 1 TABLET(S) PO QD 07/04/201812/22 Inactive [SAVINGS FOR NON-COVERED DRUGS -- BIN:00 3585, PCN: ASPROD1, Group: XXXXX, ID# [id number], Questions: . THIS IS NOT INSURANCE.] clonazepam 1 mg tablet RxNorm: 436365 TAKE 1 TABLET BY MOUTH EV SUSAN MORNING 06/25/2018 07/23/2018 Inactive clonazepam 1 mg tablet RxNorm: 935861 TAKE 1 TABLET BY MOUTH EV SUSAN MORNING 05/23/2018 06/21/2018 Inactive primidone 50 mg tablet RxNorm: 893865 Tablet(s) TAKE 2 TABLETS BY MOUTH EVERY NIGHT AT BEDTIME 05/16/2018 08/25/2018 Inactive oxycodone-acetaminophen 7.5 mg-325 mg tablet RxNorm: 4959033 1-2 Tablet(s) PO TID as needed 04/25/2018 05/24/2018 Inactive Singulair 10 mg tablet RxNorm: 652934 1 Tablet(s) PO QD 04/25/2018 Inactive Medrol (Jose) 4 mg tablets in a dose pack RxNorm: 316997 Tablet(s) PO take as directed 04/25/2018 09/02/2018 Inactive clonazepam 1 mg tablet RxNorm: 813508 TAKE 1 TABLET BY MOUTH EV SUSAN MORNING 04/24/2018 05/22/2018 Inactive Plavix 75 mg tablet RxNorm: 998546 1 TABLET(S) PO QD 04/04/201807/02 Inactive [SAVINGS FOR NON-COVERED DRUGS -- BIN:00 3582, PCN: ASPROD1, Group: XXXXX, ID# [id number], Questions: . THIS IS NOT INSURANCE.] pravastatin 20 mg tablet RxNorm: 993909 1 Tablet(s) PO QD 03/21/2018 09/16/2018 Inactive ProAir HFA 90 mcg/actuation aerosol inhaler RxNorm: 334459 2 Puff(s) INH Q4H as needed 03/18/2018 03/17/2018 Inactive tamsulosin 0.4 mg capsule RxNorm: 827617 1 CAPSULE(S) PO QD 018 01/12/2019 Inactive clonazepam 1 mg tablet RxNorm: 861942 1 Tablet(s) PO QAM 02/25/2018 0 04/25/2018 Inactive tamsulosin 0.4 mg capsule RxNorm: 221309 1 Capsule(s) PO QD 018 03/13/2018 Inactive tamsulosin 0.4 mg capsule RxNorm: 573690 1 Capsule(s) PO QD 018 02/03/2018 Inactive tamsulosin 0.4 mg capsule RxNorm: 407565 1 Capsule(s) PO QD 018 02/12/2018 Inactive Ambien 5 mg tablet RxNorm: 081593 Tablet(s) TAKE 1 TAB LET BY MOUTH EVERY NIGHT AT BEDTIME 01/24/2018 08/05/2018 Inactive primidone 50 mg tablet RxNorm: 507607 Tablet(s) TAKE 2 TABLETS BY MOUTH EVERY NIGHT AT BEDTIME 01/18/2018 05/16/2018 Inactive cyclobenzaprine 10 mg tablet RxNorm: 153396 1 Tablet(s) PO TID as needed for muscle spasm 01/11/2018 02/09/2018 Inactive [SAVINGS FOR NON -COVERED DRUGS -- BIN:974534, PCN: ASPROD1, Group: XXXXX, ID# [id number], Questions: . THIS IS NOT INSURANCE.] clonazepam 1 mg tablet RxNorm: 437851 1 Tablet(s) PO QAM 12/24/2017 0 02/21/2018 Inactive prednisone 20 mg tablet RxNorm: 245017 1 Tablet(s) PO QD 11/06/2017 0 11/10/2017 Inactive EpiPen 2-Jose 0.3 mg/0.3 mL injection, auto-injector RxNorm: 913519 1 Unit Dose IM as needed 11/06/2017 09/24/2019 Inactive ProAir HFA 90 mcg/actuation aerosol inhaler RxNorm: 984250 2 Puff(s) INH Q4H as needed 10/30/2017 03/17/2018 Inactive primidone 50 mg tablet RxNorm: 811833 TAKE 2 TABLETS BY MOUTH EVERY NIGHT AT BEDTIME 10/15/2017 01/17/2018 Inactive Plavix 75 mg tablet RxNorm: 640045 1 Tablet(s) PO QD 10/01/201703/29 Inactive [SAVINGS FOR NON-COVERED DRUGS -- BIN:00 3585, PCN: ASPROD1, Group: XXXXX, ID# [id number], Questions: . THIS IS NOT INSURANCE.] clonazepam 1 mg tablet RxNorm: 800965 1 Tablet(s) PO QAM 09/19/2017 0 12/16/2017 Inactive primidone 50 mg tablet RxNorm: 693707 2 Tablet(s) PO QHS 08/29/2017 0 01/18/2018 Inactive oxycodone-acetaminophen 7.5 mg-325 mg tablet RxNorm: 1378782 1-2 Tablet(s) PO TID as needed 08/22/2017 09/19/2017 Inactive pravastatin 20 mg tablet RxNorm: 224149 1 Tablet(s) PO QD 08/21/2017 03/21/2018 Inactive carvedilol 3.125 mg tablet RxNorm: 564193 1 Tablet(s) P O BID to replace 6.25mg dose 08/21/2017 09/02/2017 Inactive primidone 50 mg tablet RxNorm: 045042 TAKE 2 TABLETS BY MOUTH EVERY NIGHT AT BEDTIME 06/18/2017 08/28/2017 Inactive clonazepam 1 mg tablet RxNorm: 025185 1 Tablet(s) PO QAM 06/04/2017 1 11/02/2016 Inactive Plavix 75 mg tablet RxNorm: 092953 1 Tablet(s) PO QD 04/10/201710/01 Inactive [SAVINGS FOR NON-COVERED DRUGS -- BIN:00 3585, PCN: ASPROD1, Group: XXXXX, ID# [id number], Questions: . THIS IS NOT INSURANCE.] pravastatin 20 mg tablet RxNorm: 292139 1 Tablet(s) PO QD 02/26/2017 08/24/2017 Inactive carvedilol 3.125 mg tablet RxNorm: 499077 1 Tablet(s) P O BID to replace 6.25mg dose 02/26/2017 08/21/2017 Inactive Ultram 50 mg tablet RxNorm: 323341 TAKE 1 TO 2 TABLETS BY MOUTH THREE TIMES DAILY NEEDED FOR PAIN 02/26/2017 03/07/2017 Inactive pravastatin 20 mg tablet RxNorm: 022134 1 Tablet(s) PO QD 02/26/2017 08/21/2017 Inactive carvedilol 3.125 mg tablet RxNorm: 608061 1 Tablet(s) P O BID to replace 6.25mg dose 02/26/2017 08/20/2017 Inactive clonazepam 0.5 mg tablet RxNorm: 824835 1 Tablet(s) PO QAM 02/14/20 17 02/13/2017 Inactive primidone 50 mg tablet RxNorm: 726530 1 Tablet(s) PO QHS 02/13/2017 0 05/01/2017 Inactive clonazepam 1 mg tablet RxNorm: 270757 1 Tablet(s) PO QAM 02/13/2017 0 05/13/2017 Inactive primidone 50 mg tablet RxNorm: 241376 1/2 Tablet(s) PO QD for 7 days then increase to 1 tablet at bedtime 01/09/2017 02/12/2017 Inactive pravastatin 20 mg tablet RxNorm: 402811 Tablet(s) 1 TABLET(S) PO QD 11/29/2016 02/25/2017 Inactive clonazepam 1 mg tablet RxNorm: 261151 1 Tablet(s) PO BID replac es 0.5mg dose 11/23/2016 01/08/2017 Inactive pravastatin 20 mg tablet RxNorm: 278853 1 TABLET(S) PO QD 11/17/2016 11/28/2016 Inactive Ambien 5 mg tablet RxNorm: 925135 TAKE 1 TABLET BY MOUTH EVERY NIGHT AT BEDTIME 11/17/2016 12/14/2016 Inactive clonazepam 0.5 mg tablet RxNorm: 507038 TAKE 1 TABLET BY MOUTH TWICE DAILY 11/17/2016 11/22/2016 Inactive Plavix 75 mg tablet RxNorm: 620540 1 Tablet(s) PO QD 11/06/201604/09 Inactive [SAVINGS FOR NON-COVERED DRUGS -- BIN:00 3585, PCN: ASPROD1, Group: XXXXX, ID# [id number], Questions: . THIS IS NOT INSURANCE.] Plavix 75 mg tablet RxNorm: 158079 1 Tablet(s) PO QD 08/28/201611/05 Inactive [SAVINGS FOR NON-COVERED DRUGS -- BIN: 3585, PCN: ASPROD1, Group: XXXXX, ID# [id number], Questions: . THIS IS NOT INSURANCE.] Lidoderm 5 % topical patch RxNorm: 8845960 Application T OP 2 patches for 12hrs then off for 12hrs 08/28/2016 08/27/2016 Inactive clonazepam 0.5 mg tablet RxNorm: 544085 1 Tablet(s) PO BID 08/07/20 16 11/22/2016 Inactive pravastatin 20 mg tablet RxNorm: 061071 1 Tablet(s) PO QD 08/07/2016 11/04/2016 Inactive cyclobenzaprine 10 mg tablet RxNorm: 776627 1 Tablet(s) PO TID as needed for muscle spasm 08/07/2016 09/05/2016 Inactive [SAVINGS FOR NON -COVERED DRUGS -- BIN:010044, PCN: ASPROD1, Group: XXXXX, ID# [id number], Questions: . THIS IS NOT INSURANCE.] Plavix 75 mg tablet RxNorm: 988007 1 Tablet(s) PO QD 08/07/201608/27 Inactive [SAVINGS FOR NON-COVERED DRUGS -- BIN:00 3585, PCN: ASPROD1, Group: XXXXX, ID# [id number], Questions: . THIS IS NOT INSURANCE.] carvedilol 3.125 mg tablet RxNorm: 896602 1 Tablet(s) P O BID to replace 6.25mg dose 08/07/2016 02/02/2017 Inactive clonazepam 0.5 mg tablet RxNorm: 570479 1 Tablet(s) PO BID 07/04/2008/07/2016 Inactive Plavix 75 mg tablet RxNorm: 630617 1 TABLET(S) PO QD 06/20/201608/06 Inactive [SAVINGS FOR NON-COVERED DRUGS -- BIN:00 3585, PCN: ASPROD1, Group: XXXXX, ID# [id number], Questions: . THIS IS NOT INSURANCE.] clonazepam 0.5 mg tablet RxNorm: 336916 1 Tablet(s) PO BID 06/09/20 16 07/03/2016 Inactive pravastatin 20 mg tablet RxNorm: 782285 1 Tablet(s) PO QD 05/23/2016 08/06/2016 Inactive pravastatin 20 mg tablet RxNorm: 519366 1 Tablet(s) PO QD 05/23/2016 05/22/2016 Inactive carvedilol 3.125 mg tablet RxNorm: 061353 1 Tablet(s) P O BID to replace 6.25mg dose 05/10/2016 08/06/2016 Inactive carvedilol 3.125 mg tablet RxNorm: 609705 1 Tablet(s) P O BID to replace 6.25mg dose 05/10/2016 05/09/2016 Inactive clonazepam 0.5 mg tablet RxNorm: 266793 1 Tablet(s) PO BID 05/10/20 16 06/08/2016 Inactive carvedilol 6.25 mg tablet RxNorm: 602565 1 Tablet(s) PO QD 05/10/20 16 05/10/2016 Inactive simvastatin 40 mg tablet RxNorm: 360370 1 TABLET(S) PO QD 04/10/2016 05/09/2016 Inactive Medrol (Jose) 4 mg tablets in a dose pack RxNorm: 925966 Tablet(s) PO As Directed 01/13/2016 05/09/2016 Inactive cyclobenzaprine 10 mg tablet RxNorm: 356144 1 TABLET(S) PO TID NEEDED FOR SPASM 01/11/2016 03/10/2016 Inactive [SAVINGS FOR NON -COVERED DRUGS -- BIN:564020, PCN: ASPROD1, Group: XXXXX, ID# [id number], Questions: . THIS IS NOT INSURANCE.] Plavix 75 mg tablet RxNorm: 981403 1 Tablet(s) PO QD 12/30/201506/19 Inactive [SAVINGS FOR NON-COVERED DRUGS -- BIN: 3585, PCN: ASPROD1, Group: XXXXX, ID# [id number], Questions: . THIS IS NOT INSURANCE.] Ambien 5 mg tablet RxNorm: 584134 TAKE 1 TABLET BY MOUTH EVERY DAY AT BEDTIME 11/15/2015 11/17/2016 Inactive simvastatin 40 mg tablet RxNorm: 989660 1 Tablet(s) PO QD 10/11/2015 01/12/2019 Inactive simvastatin 40 mg tablet RxNorm: 961504 1 Tablet(s) PO QD 10/08/2015 10/10/2015 Inactive Ambien 5 mg tablet RxNorm: 438117 TAKE 1 TABLET BY MOUTH EVERY NIGHT AT BEDTIME 07/27/2015 11/15/2015 Inactive Plavix 75 mg tablet RxNorm: 879690 1 Tablet(s) PO QD 06/28/201512/29 Inactive [SAVINGS FOR NON-COVERED DRUGS -- BIN: 3585, PCN: ASPROD1, Group: XXXXX, ID# [id number], Questions: . THIS IS NOT INSURANCE.] Coreg 6.25 mg tablet RxNorm: 995687 1 TABLET(S) PO BID 04/19/2015 Inactive [SAVINGS FOR NON-COVERED DRUGS -- BIN:00 3585, PCN: ASPROD1, Group: XXXXX, ID# XXXXXXX, Questions: . THIS IS NOT INSURANCE.] simvastatin 40 mg tablet RxNorm: 686180 1 Tablet(s) PO QD 04/05/2015 04/04/2015 Inactive simvastatin 40 mg tablet RxNorm: 901820 1 Tablet(s) PO QD 04/05/2015 10/11/2015 Inactive Plavix 75 mg tablet RxNorm: 847693 1 TABLET(S) PO QD 03/22/201504/20 Inactive [SAVINGS FOR NON-COVERED DRUGS -- BIN:00 3585, PCN: ASPROD1, Group: XXXXX, ID# [id number], Questions: . THIS IS NOT INSURANCE.] Plavix 75 mg tablet RxNorm: 396564 1 Tablet(s) PO QD 03/22/201506/28 Inactive [SAVINGS FOR NON-COVERED DRUGS -- BIN:00 3585, PCN: ASPROD1, Group: XXXXX, ID# [id number], Questions: . THIS IS NOT INSURANCE.] Ambien 5 mg tablet RxNorm: 255277 1 Tablet(s) PO QHS 12/17/201407/28 Inactive [SAVINGS FOR NON-COVERED DRUGS -- BIN:00 3585, PCN: ASPROD1, Group: XXXXX, ID# [id number], Questions: . THIS IS NOT INSURANCE.] Coreg 6.25 mg tablet RxNorm: 396147 1 Tablet(s) PO BID 12/17/2014 Inactive [SAVINGS FOR NON-COVERED DRUGS -- BIN:00 3585, PCN: ASPROD1, Group: XXXXX, ID# XXXXXXX, Questions: . THIS IS NOT INSURANCE.] Plavix 75 mg tablet RxNorm: 392618 1 Tablet(s) PO QD 12/17/201403/16 Inactive [SAVINGS FOR NON-COVERED DRUGS -- BIN:00 3585, PCN: ASPROD1, Group: XXXXX, ID# [id number], Questions: . THIS IS NOT INSURANCE.] cyclobenzaprine 10 mg tablet RxNorm: 053247 1 Tablet(s) PO TID as needed for spasm 12/17/2014 03/16/2015 Inactive [SAVINGS FOR NON -COVERED DRUGS -- BIN:317392, PCN: ASPROD1, Group: XXXXX, ID# [id number], Questions: . THIS IS NOT INSURANCE.] Coreg 6.25 mg tablet RxNorm: 895333 1 Tablet(s) PO BID 10/21/201409/2014 Inactive [SAVINGS FOR NON-COVERED DRUGS -- BIN:00 3585, PCN: ASPROD1, Group: XXXXX, ID# [id number], Questions: . THIS IS NOT INSURANCE.] Plavix 75 mg tablet RxNorm: 774201 1 Tablet(s) PO QD 10/21/201412/16 Inactive [SAVINGS FOR NON-COVERED DRUGS -- BIN:00 3585, PCN: ASPROD1, Group: XXXXX, ID# [id number], Questions: . THIS IS NOT INSURANCE.] Plavix 75 mg tablet RxNorm: 565352 1 Tablet(s) PO QD Ne eds routine check up--last seen March 2012 09/21/2014 10/20/2014 Inactive [SAVINGS FOR UNINSURED PATIENTS -- BIN:313923, PCN: ASPROD1, Group: AME08, ID# [id number], Process claim through [employer], for questions: . THIS IS NOT INSURANCE.] Ambien 5 mg tablet RxNorm: 600994 1 Tablet(s) PO [facility] 09/21/201412/16 Inactive [SAVINGS FOR UNINSURED PATIENTS -- BIN:0 22127, PCN: ASPROD1, Group: AME08, ID# [id number], Process claim through [employer], for questions: . THIS IS NOT INSURANCE.] Coreg 6.25 mg tablet RxNorm: 721262 1 Tablet(s) PO BID 09/21/201411/2014 Inactive [SAVINGS FOR UNINSURED PATIENTS -- BIN:0 79342, PCN: ASPROD1, Group: AME08, ID# [id number], Process claim through [employer], for questions: . THIS IS NOT INSURANCE.] Plavix 75 mg tablet RxNorm: 322136 1 Tablet(s) PO QD Ne eds routine check up--last seen March 2012 08/04/2014 09/02/2014 Inactive [SAVINGS FOR UNINSURED PATIENTS -- BIN:171417, PCN: ASPROD1, Group: AME08, ID# [id number], Process claim through [employer], for questions: . THIS IS NOT INSURANCE.] Plavix 75 mg tablet RxNorm: 788412 1 Tablet(s) PO QD Ne eds routine check up--last seen March 2012 08/03/2014 08/03/2014 Inactive Protonix 40 mg tablet,delayed release RxNorm: 898037 1 Tablet(s ) PO QD 06/08/2014 02/17/2019 Inactive [SAVINGS FOR UNINSUR ED PATIENTS -- BIN:809797, PCN: ASPROD1, Group: AME08, ID# [id number], Process claim through [employer], for questions: . THIS IS NOT INSURANCE.] hydrocodone 10 mg-acetaminophen 325 mg tablet RxNorm: 659845 1 Tablet(s) PO BID as needed for pain 02/18/2014 03/31/2015 Inactive Coreg 6.25 mg tablet RxNorm: 158288 1 Tablet(s) PO BID 02/02/2014 Inactive Protonix 40 mg granules delayed-release packet RxNorm: 423779 1 Tablet(s) PO QD 01/13/2014 06/08/2014 Inactive Plavix 75 mg tablet RxNorm: 454382 1 Tablet(s) PO QD Ne eds routine check up--last seen March 2012 01/13/2014 08/02/2014 Inactive Plavix 75 mg tablet RxNorm: 530073 1 Tablet(s) PO QD Ne eds routine check up--last seen March 2012 12/09/2013 01/07/2014 Inactive Coreg 6.25 mg tablet RxNorm: 905863 1 Tablet(s) PO BID 12/09/2013 Inactive Cymbalta 60 mg capsule,delayed release RxNorm: 903285 1 Capsule (s) PO QD 10/31/2013 01/12/2014 Inactive Coreg 6.25 mg tablet RxNorm: 054217 1 Tablet(s) PO BID 10/31/2013 Inactive Plavix 75 mg tablet RxNorm: 847071 1 Tablet(s) PO QD Ne eds routine check up--last seen March 2012 10/31/2013 11/29/2013 Inactive Coreg 6.25 mg tablet RxNorm: 220388 1 Tablet(s) PO BID 10/31/2013 Inactive atorvastatin 40 mg tablet RxNorm: 566572 1 Tablet(s) PO QD 10/31/19 14 03/31/2015 Inactive Plavix 75 mg tablet RxNorm: 854032 1 Tablet(s) PO QD Ne eds routine check up--last seen March 2012 09/23/2013 10/30/2013 Inactive cyclobenzaprine 10 mg tablet RxNorm: 140029 1 Tablet(s) PO TID as needed for spasm 09/23/2013 No Stop Date Active cyclobenzaprine 10 mg tablet RxNorm: 392686 1 Tablet(s) PO TID as needed for spasm 07/04/2013 09/22/2013 Inactive atorvastatin 40 mg tablet RxNorm: 684953 1 Tablet(s) PO QD 06/23/20 13 10/30/2013 Inactive atorvastatin 40 mg tablet RxNorm: 680337 1 Tablet(s) PO QD 04/22/20 13 06/22/2013 Inactive Nucynta 50 mg tablet RxNorm: 442188 1-2 Tablet(s) PO Q6H as nee ded for pain 01/01/2013 01/12/2014 Inactive Ambien 5 mg tablet RxNorm: 934015 1 Tablet(s) PO QHS 10/16/201201/13 Inactive Plavix 75 mg tablet RxNorm: 334563 1 Tablet(s) PO QD 09/19/201209/13 Inactive Protonix 40 mg tablet,delayed release RxNorm: 277549 1 Tablet(s ) PO QD 09/19/2012 09/18/2012 Inactive simvastatin 40 mg tablet RxNorm: 022569 1 Tablet(s) PO QD 09/19/2012 02/23/2013 Inactive Protonix 40 mg tablet,delayed release RxNorm: 092317 1 Tablet(s ) PO QD 09/19/2012 09/13/2013 Inactive Ultram 50 mg tablet RxNorm: 870106 1-2 Tablet(s) PO QID as need ed for pain 09/19/2012 02/26/2017 Inactive propranolol 80 mg tablet RxNorm: 449512 1 Tablet(s) PO QHS 09/19/19 13 09/18/2012 Inactive Cymbalta 60 mg capsule,delayed release RxNorm: 802220 1 Capsule (s) PO QD 09/19/2012 09/18/2012 Inactive Cymbalta 60 mg capsule,delayed release RxNorm: 805164 1 Capsule (s) PO QD 09/19/2012 03/17/2013 Inactive propranolol 80 mg tablet RxNorm: 173302 1 Tablet(s) PO QHS 09/19/19 13 02/23/2013 Inactive hydrocodone-acetaminophen 10 mg-325 mg tablet RxNorm: 605691 2 1-2 Tablet(s) PO QID 07/25/2012 02/23/2013 Inactive Ambien 10 mg tablet RxNorm: 059044 1 Tablet(s) PO QHS as needed for sleep 07/10/2012 01/27/2013 Inactive propranolol 80 mg tablet RxNorm: 402121 1 Tablet(s) PO QHS 05/13/20 12 09/18/2012 Inactive hydrocodone-acetaminophen 10 mg-325 mg tablet RxNorm: 366397 2 1-2 Tablet(s) PO QID 05/02/2012 No Stop Date Active Restoril 15 mg Cap RxNorm: 151652 1-2 Capsule(s) PO QHS 05/02/2012 Inactive propranolol 80 mg tablet RxNorm: 989468 1 Tablet(s) PO QHS 05/02/20 12 05/12/2012 Inactive Chantix Starting Month Box 0.5 mg (11)-1 mg (42) Tabs in a Dose Pack RxNorm: 080715 Tablet(s) PO As Directed 04/01/2012 01/27/2013 Inactive simvastatin 40 mg tablet RxNorm: 091242 1 Tablet(s) PO QD 03/28/2012 09/18/2012 Inactive simvastatin 40 mg Tab RxNorm: 316385 1 Tablet(s) PO QD 03/22/201207/2012 Inactive Effient 10 mg Tab RxNorm: 392028 1 Tablet(s) PO QD 03/22/2012 012 Inactive Prilosec 40 mg Capsule, delayed release RxNorm: 142597 1 Capsul e(s) PO QD 03/22/2012 09/18/2012 Inactive Prilosec 40 mg Capsule, delayed release RxNorm: 229498 1 Capsul e(s) PO QD 03/19/2012 03/21/2012 Inactive Cymbalta 60 mg capsule,delayed release RxNorm: 769056 1 Capsule (s) PO QD 03/04/2012 08/30/2012 Inactive hydrocodone-acetaminophen 10 mg-325 mg Tab RxNorm: 3750831 1-2 T ablet(s) PO QID 01/23/2012 No Stop Date Active Cymbalta 60 mg Capsule, delayed release RxNorm: 121220 1 Capsul e(s) PO QD 01/23/2012 03/03/2012 Inactive Cipro 500 mg Tab RxNorm: 656180 1 Tablet(s) PO BID 12/20/2011 012 Inactive Cymbalta 60 mg Capsule, delayed release RxNorm: 843773 1 Capsul e(s) PO QD 12/13/2011 01/22/2012 Inactive nortriptyline 75 mg Cap RxNorm: 442071 1 Capsule(s) PO QHS 11/29/1904/02/2012 Inactive Cymbalta 60 mg Cap RxNorm: 286173 1 Capsule(s) PO QD 10/24/201112/11 Inactive propranolol 80 mg Tab RxNorm: 028784 1 Tablet(s) PO QHS 10/24/2011 Inactive hydrocodone-acetaminophen 10 mg-325 mg Tab RxNorm: 5382914 1-2 T ablet(s) PO QID 09/29/2011 No Stop Date Active hydrocodone-acetaminophen 10 mg-325 mg Tab RxNorm: 7593648 1-2 T ablet(s) PO QID 07/25/2011 No Stop Date Active hydrocodone-acetaminophen 10 mg-325 mg Tab RxNorm: 9902943 1-2 T ablet(s) PO QID 02/14/2011 No Stop Date Active Prilosec 40 mg Cap RxNorm: 666868 1 Capsule(s) PO 01/03/2011 04/28/20 19 Inactive nortriptyline 75 mg Cap RxNorm: 389391 1 Capsule(s) PO QHS 01/04/20 11 07/01/2011 Inactive Neurontin 600 mg Tab RxNorm: 696527 1 Tablet(s) PO QHS 12/08/201011/2011 Inactive hydrocodone-acetaminophen 5 mg-500 mg Tab RxNorm: 924099 2 Tablet(s) PO Q4-6H prn 10/20/2010 01/08/2011 Inactive Diltzac ER 240 mg Cap RxNorm: 752499 1 Capsule(s) PO QD 07/14/2010 Inactive Nortriptyline 75 mg Cap RxNorm: 961527 1 Capsule(s) PO QHS 05/09/20 10 01/12/2019 Inactive Neurontin 600 mg Tab RxNorm: 750755 1 Tablet(s) PO QD 03/17/201012/17 Inactive Nortriptyline 75 mg Cap RxNorm: 220156 1 Capsule(s) PO 01/12/2010 Inactive Nortriptyline 50 mg Cap RxNorm: 674630 1 Capsule(s) PO QHS 01/13/20 10 01/11/2010 Inactive Diltzac ER 240 mg Cap RxNorm: 779334 1 Capsule(s) PO QD 12/06/2009 Inactive aspirin 81 mg Tab RxNorm: 014370 1 Tablet(s) PO QD No Start Date Active Vitamin D3 2,000 unit tablet RxNorm: 132798 1 Tablet(s) PO QD No Star t Date Active Lyrica 75 mg capsule RxNorm: 534661 1 Capsule(s) PO QHS No Start Date Active kqvklxthq-qikmtngca-nobbez complex no.233 oral RxNorm: oral No Start Date Active primidone 50 mg tablet RxNorm: 944033 2 Tablet(s) PO BID No Start Date Active Prilosec 40 mg Capsule, delayed release RxNorm: 023509 1 Capsul e(s) PO QD No Start Date 03/18/2012 Inactive Prilosec 20 mg Cap RxNorm: 972567 1 Capsule(s) PO QHS No Start Date 0 01/02/2011 Inactive primidone 50 mg tablet RxNorm: 323818 1/2 Tablet(s) PO QHS for 1week then go full tab if needed No Start Date 05/01/2017 Inactive ProAir HFA 90 mcg/actuation aerosol inhaler RxNorm: 946429 2 Puff(s) INH Q4H as needed No Start Date 10/29/2017 Inactive clonazepam 0.5 mg tablet RxNorm: 794166 1/2 Tablet(s) PO BID No Sta rt Date 02/12/2017 Inactive Pepcid AC 10 mg Tab RxNorm: 940664 1 Tablet(s) PO QAM No Start Date 0 02/19/2011 Inactive Coreg Oral RxNorm: Oral No Start Date 01/12/2014 Inactive primidone 50 mg tablet RxNorm: 900768 1/2 Tablet(s) PO QD for 7 days then increase to 1 tablet at bedtime No Start Date 01/08/2017 Inactive Medrol (Jose) 4 mg tablets in a dose pack RxNorm: 562963 Tablet(s) PO As Directed No Start Date 01/12/2016 Inactive Plavix 75 mg tablet RxNorm: 038166 1 Tablet(s) PO QD No Start Date Inactive cyclobenzaprine 10 mg tablet RxNorm: 307235 1 Tablet(s) PO TID as needed for spasm No Start Date 07/03/2013 Inactive Bevespi Aerosphere 9 mcg-4.8 mcg HFA aerosol inhaler RxNorm: 4310271 2 Puff(s) INH BID No Start Date 02/18/2019 Inactive tramadol 50 mg tablet RxNorm: 864307 1-2 Tablet(s) PO TID as ne eded for pain No Start Date 01/12/2019 Inactive clonazepam 1 mg tablet RxNorm: 843844 1 Tablet(s) PO QAM No Start D ate 09/18/2018 Inactive hydrocodone-acetaminophen 5 mg-500 mg Tab RxNorm: 835602 2 Tablet(s) PO Q4-6H prn No Start Date 10/19/2010 Inactive lisinopril 20 mg Tab RxNorm: 165374 1/2 Tablet(s) PO QD No Start Da te 03/12/2011 Inactive Protonix 40 mg tablet,delayed release RxNorm: 903824 1 Tablet(s ) PO QD No Start Date 06/07/2014 Inactive Lipitor Oral RxNorm: Oral No Start Date 01/12/2014 Inactive primidone 50 mg tablet RxNorm: 475129 2 Tablet(s) PO QAM and 1 tablet at HS No Start Date 02/17/2019 Inactive hydrocodone-acetaminophen 10 mg-325 mg Tab RxNorm: 2124275 1-2 T ablet(s) PO QID No Start Date 02/13/2011 Inactive Ultram 50 mg tablet RxNorm: 806263 1-2 Tablet(s) PO QID as need ed for pain No Start Date 09/18/2012 Inactive Effient 10 mg Tab RxNorm: 328642 1 Tablet(s) PO QD No Start Date 01/2012 Inactive Bevespi Aerosphere 9 mcg-4.8 mcg HFA aerosol inhaler RxNorm: 7997532 2 Puff(s) INH BID No Start Date 10/29/2017 Inactive Neurontin Oral RxNorm: Oral No Start Date 01/12/2010 Inactive primidone 50 mg tablet RxNorm: 211248 1 Tablet(s) PO QD No Start Da te 01/12/2019 Inactive Chantix Starting Month Box 0.5 mg (11)-1 mg (42) Tabs in a Dose Pack RxNorm: 927729 Tablet(s) PO No Start Date 03/31/2012 Inactive atenolol 25 mg Tab RxNorm: 017673 1 Tablet(s) PO QD No Start Date 02/2012 Inactive Neurontin 600 mg Tab RxNorm: 559715 1 Tablet(s) PO QD No Start Date 0 03/16/2010 Inactive Nucynta 50 mg tablet RxNorm: 548001 1-2 Tablet(s) PO Q6H as nee ded for pain No Start Date 12/31/2012 Inactive simvastatin 40 mg Tab RxNorm: 991515 1 Tablet(s) PO QD No Start Date 03/21/2012 Inactive Medication Administered No Medication Administered data Immunizations Vaccine Codes Date Status Influenza CVX: 135 07/04/2017 Complete Results Observation Observation Code Item Item Code Result Date S [facility] Location COMPLETE BLOOD COUNT [id number] WBC 4.9 10e9/L 09/04/20 18 Unknown COMPLETE BLOOD COUNT [id number] RBC 4.42 10e12/L 2017 Unknown COMPLETE BLOOD COUNT 3295713 HEMOGLOBIN 13.4 g/dL 09/04/20 18 Unknown COMPLETE BLOOD COUNT 8122858 HEMATOCRIT 40.5 % 09/04/20 18 Unknown COMPLETE BLOOD COUNT [id number] MCV 91.6 fL 8 Unknown COMPLETE BLOOD COUNT 8189331 MCH 30.3 pg 8 Unknown COMPLETE BLOOD COUNT 2065389 MCHC 33.1 g/dL 8 Unknown COMPLETE BLOOD COUNT 4391241 PLATELET COUNT 224 10e9/L Unknown COMPLETE BLOOD COUNT 7918070 Mean Plt Volume 9.9 fL Unknown COMPLETE BLOOD COUNT 0602199 Neut Auto 60.8 % 8 Unknown COMPLETE BLOOD COUNT 8856031 Lymph Auto 26.8 % 09/04/20 18 Unknown COMPLETE BLOOD COUNT 8771140 [place] Auto 10.4 % 8 Unknown COMPLETE BLOOD COUNT 1633766 RDW 12.8 % 8 Unknown COMPLETE BLOOD COUNT 6995737 Eos Auto 1.6 % 8 Unknown COMPLETE BLOOD COUNT 3519802 Baso Auto 0.4 % 8 Unknown COMPLETE BLOOD COUNT 4417110 Neutrophil Abs 2.98 10e9/L Unknown COMPLETE BLOOD COUNT 1315681 Lymphocyte Abs 1.31 10e9/L Unknown COMPLETE BLOOD COUNT 9651584 Monocyte Abs 0.51 10e9/L 08/17 Unknown COMPLETE BLOOD COUNT 1636856 Eosinophil Abs 0.08 10e9/L Unknown COMPLETE BLOOD COUNT 2000013 RDW-SD 41.6 fL 8 Unknown COMPLETE BLOOD COUNT 3142019 Basophil Abs 0.02 10e9/L 08/17 Unknown COMPREHENSIVE METABOLIC 90622 AST 16 U/L 2017 Unknown COMPREHENSIVE METABOLIC 02563 ALT 8 U/L 2017 Unknown COMPREHENSIVE METABOLIC 92976 BUN 12 mg/dL 2017 Unknown COMPREHENSIVE METABOLIC 98785 ALBUMIN 4.4 g/dL 2017 Unknown COMPREHENSIVE METABOLIC 63210 CHLORIDE 107 mmol/L 09/04 Unknown COMPREHENSIVE METABOLIC 85956 Bili Total 1.0 mg/dL 09/04 Unknown COMPREHENSIVE METABOLIC 23271 ALK PHOS 58 U/L 2017 Unknown COMPREHENSIVE METABOLIC 75030 SODIUM 142 mmol/L 09/04 Unknown COMPREHENSIVE METABOLIC 48847 CREATININE 0.97 mg/dL 08/17 Unknown COMPREHENSIVE METABOLIC 24611 CALCIUM 9.2 mg/dL 2017 Unknown COMPREHENSIVE METABOLIC 56060 POTASSIUM 4.6 mmol/L 09/04 Unknown COMPREHENSIVE METABOLIC 74399 Total Protein 6.5 g/dL Unknown COMPREHENSIVE METABOLIC 02492 Glucose 96 mg/dL 2017 Unknown COMPREHENSIVE METABOLIC 56883 Bicarbonate 29 mmol/L 08/17 Unknown COMPREHENSIVE METABOLIC 01153 AGAP 6 mmol/L 2017 Unknown LIPID GROUP 49892 Cholesterol 182 mg/dL 09/04/2018 Unkno wn LIPID GROUP 67445 Triglyceride 84 mg/dL 09/04/2018 Unkn own LIPID GROUP 21238 HDL CHOLESTEROL 76 mg/dL 09/04/2018 U nknown LIPID GROUP 16698 Chol/HDL Ratio 2.39 ratio 09/04/2018 U nknown LIPID GROUP 26317 NON-HDL Chol 106 mg/dL 09/04/2018 Unkn own LIPID GROUP 69629 LDL Cholesterol 89 mg/dL 09/04/2018 U nknown GFR CALC 4649847 GFR Non Afr Amr >60 mL/min 09/04/2018 Un known GFR CALC 1692361 GFR Afr Amr >60 mL/min 09/04/2018 Unknow n THYROID STIMULATING HORMONE 93665 TSH 0.713 uIU/mL 09/04/2018 Unknown PSA EQUIMOLAR BARBIE 59381 PSA Total 0.66 ng/mL 8 Unknown A FOOD C P [id number] [place] Cl Class 0 11/17/2017 Unknown A FOOD C P 0660570 [place] Ct <0.35 kU/L 11/17/2017 Unknow n A FOOD C P 3898677 [place] Cl Class 0 11/17/2017 Unkn own A FOOD C P [id number] [place] Ct <0.35 kU/L 11/17/2017 Unk nown A FOOD C P 5362644 [place] White Cl Class 0 11/17/2017 Unkno wn A FOOD C P 5107393 Egg White Ct <0.35 kU/L 11/17/2017 Unkn own A FOOD C P 0526602 Egg Yolk Cl Class 0 11/17/2017 Unknow n A FOOD C P 4553286 Egg Yolk Ct <0.35 kU/L 11/17/2017 Unkno wn A FOOD C P 1014779 Cow Milk Cl Class 0 11/17/2017 Unknow n A FOOD C P 3325729 Cow Milk Ct <0.35 kU/L 11/17/2017 Unkno wn A FOOD C P 1273580 Peanut Cl Class 0 11/17/2017 Unknown A FOOD C P 1613516 Peanut Ct <0.35 kU/L 11/17/2017 Unknown A FOOD C P 5749017 Sh[place] Cl Class 0 11/17/2017 Unknown A FOOD C P 3178184 [place]rimp Ct <0.35 kU/L 11/17/2017 Unknown A FOOD C P 5404965 [place] Cl Class 0 11/17/2017 Unknown A FOOD C P 8678296 [place] Ct <0.35 kU/L 11/17/2017 Unknow n A FOOD C P 7381058 [place] Cl Class 0 11/17/2017 Unknown A FOOD C P 0795357 Wheat Ct <0.35 kU/L 11/17/2017 Unknown A FOOD C P 7806841 Potato Cl Class 0 11/17/2017 Unknown A FOOD C P 0423854 Potato Ct <0.35 kU/L 11/17/2017 Unknown A FOOD C P 0193307 Beef Cl Class 2 11/17/2017 Unknown A FOOD C P 2472459 Beef Ct 0.88 kU/L 11/17/2017 Unknown A FOOD C P 8704612 [place] Cl Class 0 11/17/2017 Unknown A FOOD C P 6697004 [place] Ct <0.35 kU/L 11/17/2017 Unknown A FOOD C P 6571205 P[place] Cl Class 0 11/17/2017 Unknown A FOOD C P 1265512 Pork Ct <0.35 kU/L 11/17/2017 Unknown A FOOD C P 2991866 [place] Cl Class 0 11/17/2017 Unknown A FOOD C P 6447631 [place] Ct <0.35 kU/L 11/17/2017 Unknown A FOOD C P [id number] [place] Cl Class 0 11/17/2017 Unkn own A FOOD C P 6970577 [place] Ct <0.35 kU/L 11/17/2017 Unk nown A FOOD C P [id number] [place] Cl Class 0 11/17/2017 Unknown A FOOD C P 0345198 [place] Ct <0.35 kU/L 11/17/2017 Unknown A FOOD C P 5038359 [place] Cl Class 0 11/17/2017 Unknown A FOOD C P 5133861 [place] Ct <0.35 kU/L 11/17/2017 Unknown A FOOD C P 0551373 [place] CL Class 0 11/17/2017 Unknown A FOOD C P [id number] [place] CT <0.35 kU/L 11/17/2017 Unknown A FOOD C P 1558984 [place] Cl Class 0 11/17/2017 Unknown A FOOD C P 3130114 [place] Ct <0.35 kU/L 11/17/2017 Unknown A FOOD C P 1914164 Oat Cl Class 0 11/17/2017 Unknown A FOOD C P 3279016 Oat Ct <0.35 kU/L 11/17/2017 Unknown A FOOD C P 8155882 [place] Cl Class 0 11/17/2017 Unknown A FOOD C P [id number] [place] Ct <0.35 kU/L 11/17/2017 Unknown A FOOD C P [id number] [place] CL Class 0 11/17/2017 Un known A FOOD C P [id number] [place] Meat Ct <0.35 kU/L 11/17/2017 U nknown A FOOD C P 7826957 [place] Cl Class 0 11/17/2017 Unknown A FOOD C P 5465226 [place] Ct <0.35 kU/L 11/17/2017 Unknown A FOOD C P 7347676 [place] Meat Cl Class 0 11/17/2017 Unkn own A FOOD C P 8133439 [place] Ct <0.35 kU/L 11/17/2017 Unk nown A NUTS PNL 2384676 Pe[place] Cl Class 0 11/17/2017 Unknown A NUTS PNL 9229355 Peanut Ct <0.35 kU/L 11/17/2017 Unknown A NUTS PNL 2136834 [place] Meat Cl Class 0 11/17/2017 Unk nown A NUTS PNL 1760829 [place] Ct <0.35 kU/L 11/17/2017 Un known A NUTS PNL 6484288 [place] Cl Class 0 11/17/2017 Unkn own A NUTS PNL 7267853 [place] Ct <0.35 kU/L 11/17/2017 Unk nown A NUTS PNL 0301184 [place] Cl Class 0 11/17/2017 Unknown A NUTS PNL 1698470 [place] Ct <0.35 kU/L 11/17/2017 Unknown A NUTS PNL 9141323 [place] Cl Class 0 11/17/2017 Unknow n A NUTS PNL 0006702 [place] Ct <0.35 kU/L 11/17/2017 Unkno wn A NUTS PNL 1075399 [place] Cl Class 0 11/17/2017 Unkno wn A NUTS PNL 5456655 [place] Ct <0.35 kU/L 11/17/2017 Unkn own A NUTS PNL 2142434 [place] Cl Class 0 11/17/2017 Unknown A NUTS PNL 1821997 [place] Ct <0.35 kU/L 11/17/2017 Unknown A NUTS PNL 5729624 [place] Cl Class 0 11/17/2017 Unkno wn A NUTS PNL 9876545 [place] Ct <0.35 kU/L 11/17/2017 Unkn own A NUTS PNL 2166754 Allergen Interp See Note 11/17/2017 Un known A FRT/VG P [id number] [place] Cl Class 0 11/17/2017 Unkn own A FRT/VG P 1460890 [place] Ct <0.35 kU/L 11/17/2017 Unk nown A FRT/VG P 3438109 [place] Cl Class 0 11/17/2017 Unknown A FRT/VG P [id number] [place] Ct <0.35 kU/L 11/17/2017 Unknown A FRT/VG P 9061447 [place] Cl Class 0 11/17/2017 Unkn own A FRT/VG P 1027632 [place] [facility] <0.35 kU/L 11/17/2017 Unk nown A FRT/VG P 1440562 [place] Cl Class 0 11/17/2017 Unknown A FRT/VG P [id number] [place] Ct <0.35 kU/L 11/17/2017 Unknown A FRT/VG P 9190419 [place] Cl Class 0 11/17/2017 Unknown A FRT/VG P 2810426 [place] Ct <0.35 kU/L 11/17/2017 Unknown A FRT/VG P 1287910 [place] Cl Class 1 11/17/2017 Unknown A FRT/VG P [id number] [place] Ct 0.48 kU/L 11/17/2017 Unknown A FRT/VG P 1315868 [place] Cl Class 0 11/17/2017 Unk nown A FRT/VG P 9820012 [place] Ct <0.35 kU/L 11/17/2017 Un known A FRT/VG P [id number] [place] Cl Class 0 11/17/2017 Unk nown A FRT/VG P [id number] [place] Ct <0.35 kU/L 11/17/2017 Un known A FRT/VG P 0855371 [place] Cl Class 0 11/17/2017 Unknown A FRT/VG P 8844693 [place] Ct <0.35 kU/L 11/17/2017 Unknown A FRT/VG P 2623004 [place] Cl Class 0 11/17/2017 Unknown A FRT/VG P [id number] [place] Ct <0.35 kU/L 11/17/2017 Unknown A FRT/VG P 1850630 [place] Cl Class 0 11/17/2017 Unkn own A FRT/VG P 5959808 [place] Ct <0.35 kU/L 11/17/2017 Unk nown A FRT/VG P 0466110 [place] Cl Class 0 11/17/2017 Unkn own A FRT/VG P 3909435 Swt [place] Ct <0.35 kU/L 11/17/2017 Unk nown THYROID STIMULATING HORMONE 16284 TSH 1.371 uIU/mL 09/03/2017 Unknown FREE T4 12170 T4 Free 1.26 ng/dL 09/03/2017 Unknown ASSAY TRIIODOTHYRONINE (T3) 99352 T3 Total 0.9 ng/mL Unknown COMPLETE BLOOD COUNT 5967029 WBC 5.9 10e9/L 07/31/20 17 Unknown COMPLETE BLOOD COUNT 6662756 RBC 4.64 10e12/L 2016 Unknown COMPLETE BLOOD COUNT 3928836 HEMOGLOBIN 14.2 g/dL 07/31/20 17 Unknown COMPLETE BLOOD COUNT 0308914 HEMATOCRIT 42.1 % 07/31/20 17 Unknown COMPLETE BLOOD COUNT 4871469 MCV 90.7 fL 7 Unknown COMPLETE BLOOD COUNT 8898334 MCH 30.6 pg 7 Unknown COMPLETE BLOOD COUNT 8361287 MCHC 33.7 g/dL 7 Unknown COMPLETE BLOOD COUNT 2306426 PLATELET COUNT 195 10e9/L Unknown COMPLETE BLOOD COUNT 2778088 Mean Plt Volume 10.0 fL Unknown COMPLETE BLOOD COUNT 1351570 Neut Auto 47.5 % 7 Unknown COMPLETE BLOOD COUNT 8103825 Lymph Auto 37.4 % 07/31/20 17 Unknown COMPLETE BLOOD COUNT 9671964 [place] Auto 11.7 % 7 Unknown COMPLETE BLOOD COUNT 8435214 Eos Auto 3.2 % 7 Unknown COMPLETE BLOOD COUNT 2106643 RDW 12.8 % 7 Unknown COMPLETE BLOOD COUNT 2929744 Baso Auto 0.2 % 7 Unknown COMPLETE BLOOD COUNT 9463082 Neutrophil Abs 2.80 10e9/L Unknown COMPLETE BLOOD COUNT 0537746 Lymphocyte Abs 2.21 10e9/L Unknown COMPLETE BLOOD COUNT 1065035 Monocyte Abs 0.69 10e9/L 07/18 Unknown COMPLETE BLOOD COUNT 2991369 Eosinophil Abs 0.19 10e9/L Unknown COMPLETE BLOOD COUNT 2882030 RDW-SD 41.6 fL 7 Unknown COMPLETE BLOOD COUNT 5662082 Basophil Abs 0.01 10e9/L 07/18 Unknown LIPID GROUP 97747 Cholesterol 186 mg/dL 07/31/2017 Unkno wn LIPID GROUP 08313 Triglyceride 129 mg/dL 07/31/2017 Unkn own LIPID GROUP 05821 HDL CHOLESTEROL 79 mg/dL 07/31/2017 U nknown LIPID GROUP 26714 Chol/HDL Ratio 2.35 ratio 07/31/2017 U nknown LIPID GROUP 41045 NON-HDL Chol 107 mg/dL 07/31/2017 Unkn own LIPID GROUP 45509 LDL Cholesterol 81 mg/dL 07/31/2017 U nknown GFR CALC 3261546 GFR Non Afr Amr >60 mL/min 07/31/2017 Un known GFR CALC 4994702 GFR Afr Amr >60 mL/min 07/31/2017 Unknow n COMPREHENSIVE METABOLIC 47692 AST 19 U/L 2016 Unknown COMPREHENSIVE METABOLIC 92130 ALT 12 U/L 2016 Unknown COMPREHENSIVE METABOLIC 24378 BUN 15 mg/dL 2016 Unknown COMPREHENSIVE METABOLIC 39342 ALBUMIN 4.4 g/dL 2016 Unknown COMPREHENSIVE METABOLIC 60095 CHLORIDE 102 mmol/L 07/31 Unknown COMPREHENSIVE METABOLIC 78195 Bili Total 0.9 mg/dL 07/31 Unknown COMPREHENSIVE METABOLIC 57123 ALK PHOS 53 U/L 2016 Unknown COMPREHENSIVE METABOLIC 40906 SODIUM 138 mmol/L 07/31 Unknown COMPREHENSIVE METABOLIC 89097 CREATININE 1.06 mg/dL 07/18 Unknown COMPREHENSIVE METABOLIC 03424 CALCIUM 9.3 mg/dL 2016 Unknown COMPREHENSIVE METABOLIC 02069 POTASSIUM 4.0 mmol/L 07/31 Unknown COMPREHENSIVE METABOLIC 67183 Total Protein 6.8 g/dL Unknown COMPREHENSIVE METABOLIC 34420 Glucose 86 mg/dL 2016 Unknown COMPREHENSIVE METABOLIC 88046 Bicarbonate 28 mmol/L 07/18 Unknown COMPREHENSIVE METABOLIC 63810 AGAP 8 mmol/L 2016 Unknown COMPREHENSIVE METABOLIC 00053 AST 18 U/L 2015 Unknown COMPREHENSIVE METABOLIC 30784 ALT 9 U/L 2015 Unknown COMPREHENSIVE METABOLIC 90354 BUN 11 mg/dL 2015 Unknown COMPREHENSIVE METABOLIC 52782 ALBUMIN 4.2 g/dL 2015 Unknown COMPREHENSIVE METABOLIC 22299 CHLORIDE 104 mmol/L 05/19 Unknown COMPREHENSIVE METABOLIC 17982 Bili Total 1.2 mg/dL 05/19 Unknown COMPREHENSIVE METABOLIC 26239 ALK PHOS 54 U/L 2015 Unknown COMPREHENSIVE METABOLIC 72689 SODIUM 140 mmol/L 05/19 Unknown COMPREHENSIVE METABOLIC 74456 CREATININE 1.03 mg/dL 10/2015 Unknown COMPREHENSIVE METABOLIC 50805 CALCIUM 9.3 mg/dL 2015 Unknown COMPREHENSIVE METABOLIC 11142 POTASSIUM 4.9 mmol/L 05/19 Unknown COMPREHENSIVE METABOLIC 50379 Total Protein 6.7 g/dL Unknown COMPREHENSIVE METABOLIC 70548 Glucose 92 mg/dL 2015 Unknown COMPREHENSIVE METABOLIC 82604 Bicarbonate 28 mmol/L 10/2015 Unknown COMPREHENSIVE METABOLIC 55889 AGAP 8 mmol/L 2015 Unknown THYROID STIMULATING HORMONE 50055 TSH 1.545 uIU/mL 05/19/2016 Unknown GFR CALC 0744307 GFR Non Afr Amr >60 mL/min 05/19/2016 Un known GFR CALC 1483716 GFR Afr Amr >60 mL/min 05/19/2016 Unknow n VITAMIN B 12 19845 VITAMIN B12 298 pg/mL 05/19/2016 Unkn own COMPLETE BLOOD COUNT 7532548 WBC 5.2 10e9/L 05/19/20 16 Unknown COMPLETE BLOOD COUNT 0835356 RBC 4.34 10e12/L 2015 Unknown COMPLETE BLOOD COUNT 2854634 HEMOGLOBIN 12.9 g/dL 05/19/20 16 Unknown COMPLETE BLOOD COUNT 2293222 HEMATOCRIT 38.9 % 05/19/20 16 Unknown COMPLETE BLOOD COUNT 6731077 MCV 89.6 fL 6 Unknown COMPLETE BLOOD COUNT 8405822 MCH 29.7 pg 6 Unknown COMPLETE BLOOD COUNT 5473009 MCHC 33.2 g/dL 6 Unknown COMPLETE BLOOD COUNT 5287847 PLATELET COUNT 200 10e9/L 10/2015 Unknown COMPLETE BLOOD COUNT 1790169 Mean Plt Volume 10.1 fL 10/2015 Unknown COMPLETE BLOOD COUNT 2612006 Neut Auto 45.4 % 6 Unknown COMPLETE BLOOD COUNT 4757567 Lymph Auto 35.6 % 05/19/20 16 Unknown COMPLETE BLOOD COUNT 4128448 [place] Auto 11.9 % 6 Unknown COMPLETE BLOOD COUNT 2430295 RDW 12.7 % 6 Unknown COMPLETE BLOOD COUNT 0152459 Eos Auto 6.7 % 6 Unknown COMPLETE BLOOD COUNT 0907368 Baso Auto 0.4 % 6 Unknown COMPLETE BLOOD COUNT 7198975 Neutrophil Abs 2.36 10e9/L Unknown COMPLETE BLOOD COUNT 0079155 Lymphocyte Abs 1.85 10e9/L Unknown COMPLETE BLOOD COUNT 4743850 Monocyte Abs 0.62 10e9/L 10/2015 Unknown COMPLETE BLOOD COUNT 3875127 Eosinophil Abs 0.35 10e9/L Unknown COMPLETE BLOOD COUNT 2415433 RDW-SD 40.6 fL 6 Unknown COMPLETE BLOOD COUNT 3267283 Basophil Abs 0.02 10e9/L 10/2015 Unknown LIPID GROUP 80634 Cholesterol 197 mg/dL 05/19/2016 Unkno wn LIPID GROUP 18991 Triglyceride 92 mg/dL 05/19/2016 Unkn own LIPID GROUP 94625 HDL CHOLESTEROL 58 mg/dL 05/19/2016 U nknown LIPID GROUP 89159 Chol/HDL Ratio 3.40 ratio 05/19/2016 U nknown LIPID GROUP 74951 NON-HDL Chol 139 mg/dL 05/19/2016 Unkn own LIPID GROUP 48874 LDL Cholesterol 121 mg/dL 05/19/2016 U nknown FREE T4 61247 T4 Free 1.19 ng/dL 05/19/2016 Unknown COMPREHENSIVE METABOLIC 23993 AST 19 U/L 2014 Unknown COMPREHENSIVE METABOLIC 16352 ALT 10 IU/L 2014 Unknown COMPREHENSIVE METABOLIC 78060 BUN 20 MG/DL 2014 Unknown COMPREHENSIVE METABOLIC 06742 ALBUMIN 4.4 GM/DL 2014 Unknown COMPREHENSIVE METABOLIC 94862 CHLORIDE 104 MMOL/L 04/05 Unknown COMPREHENSIVE METABOLIC 94906 BILI TOT 2.2 MG/DL 2014 Unknown COMPREHENSIVE METABOLIC 71985 ALK PHOS 55 U/L 2014 Unknown COMPREHENSIVE METABOLIC 66372 SODIUM 138 MMOL/L 04/05 Unknown COMPREHENSIVE METABOLIC 21092 CREATININE 1.04 MG/DL 03/18 Unknown COMPREHENSIVE METABOLIC 65016 CALCIUM 9.3 MG/DL 2014 Unknown COMPREHENSIVE METABOLIC 10119 POTASSIUM 4.5 MMOL/L 04/05 Unknown COMPREHENSIVE METABOLIC 56075 PROT TOT 6.7 GM/DL 2014 Unknown COMPREHENSIVE METABOLIC 33269 Glucose 77 MG/DL 2014 Unknown COMPREHENSIVE METABOLIC 81951 BICARB 25 MMOL/L 2014 Unknown COMPREHENSIVE METABOLIC 64912 ANION GAP 9 MEQ/L 2014 Unknown GFR CALC 1720390 GFR AA >60 ML/MIN 04/05/2015 Unknown GFR CALC 6964856 GFR NON-AA >60 ML/MIN 04/05/2015 Unknown LIPID GROUP 61961 HDL TEST 60 MG/DL 04/05/2015 Unknown LIPID GROUP 62920 TRIG 70 MG/DL 04/05/2015 Unknown LIPID GROUP 86166 TEST LDL 137 MG/DL 04/05/2015 Unknown LIPID GROUP 37859 CHOL 211 MG/DL 04/05/2015 Unknown LIPID GROUP 34199 RCHOL/HDL 3.52 RATIO 04/05/2015 Unknow n LIPID GROUP 59092 NON-HDL CH 151 MG/DL 04/05/2015 Unknow n COMPLETE BLOOD COUNT 7227993 WBC 5.3 10e9/L 04/05/20 15 Unknown COMPLETE BLOOD COUNT 0870431 RBC 4.42 10e12/L 2014 Unknown COMPLETE BLOOD COUNT 8372853 HGB 13.4 g/dL 5 Unknown COMPLETE BLOOD COUNT 2271585 HCT DET 39.6 % 5 Unknown COMPLETE BLOOD COUNT 4421526 MCV 89.6 fL 5 Unknown COMPLETE BLOOD COUNT 9148646 MCH 30.3 pg 5 Unknown COMPLETE BLOOD COUNT 7142255 MCHC 33.8 g/dL 5 Unknown COMPLETE BLOOD COUNT 2102227 PLT 201 10e9/L 04/05/20 15 Unknown COMPLETE BLOOD COUNT 1812454 MPV 10.3 fL 5 Unknown COMPLETE BLOOD COUNT 3938819 LUPE % 56.4 % 5 Unknown COMPLETE BLOOD COUNT 1912203 LY % 24.8 % 5 Unknown COMPLETE BLOOD COUNT 2243391 MON % 12.8 % 5 Unknown COMPLETE BLOOD COUNT 4779232 EOS % 5.4 % 5 Unknown COMPLETE BLOOD COUNT 3841458 BASO % 0.6 % 5 Unknown COMPLETE BLOOD COUNT 4133329 RDW 13.2 % 5 Unknown COMPLETE BLOOD COUNT 8787674 ABS LUPE 2.99 10e9/L 015 Unknown COMPLETE BLOOD COUNT 1126243 ABS LYMPH 1.31 10e9/L 015 Unknown COMPLETE BLOOD COUNT 0677640 ABS MONO 0.68 10e9/L 015 Unknown COMPLETE BLOOD COUNT 5738787 ABS EOS 0.29 10e9/L 015 Unknown COMPLETE BLOOD COUNT 8331580 ABS BASO 0.03 10e9/L 015 Unknown COMPLETE BLOOD COUNT 4713109 RDW-SD 42.3 fL 5 Unknown LIPID GROUP 74088 HDL TEST 51 MG/DL 07/19/2012 Unknown LIPID GROUP 54291 TRIG 129 MG/DL 07/19/2012 Unknown LIPID GROUP 27259 TEST LDL 98 MG/DL 07/19/2012 Unknown LIPID GROUP 55800 CHOL 175 MG/DL 07/19/2012 Unknown LIPID GROUP 92533 RCHOL/HDL 3.43 RATIO 07/19/2012 Unknow n COMPREHENSIVE METABOLIC 12812 AST 18 U/L 2011 Unknown COMPREHENSIVE METABOLIC 52162 ALT 12 IU/L 2011 Unknown COMPREHENSIVE METABOLIC 88817 BUN 10 MG/DL 2011 Unknown COMPREHENSIVE METABOLIC 58606 ALBUMIN 4.1 GM/DL 2011 Unknown COMPREHENSIVE METABOLIC 21890 CHLORIDE 103 MMOL/L 07/19 Unknown COMPREHENSIVE METABOLIC 19320 BILI TOT 0.9 MG/DL 2011 Unknown COMPREHENSIVE METABOLIC 48093 ALK PHOS 62 U/L 2011 Unknown COMPREHENSIVE METABOLIC 35293 SODIUM 138 MMOL/L 07/19 Unknown COMPREHENSIVE METABOLIC 15473 CREATININE 1.08 MG/DL 10/2011 Unknown COMPREHENSIVE METABOLIC 34295 CALCIUM 9.1 MG/DL 2011 Unknown COMPREHENSIVE METABOLIC 37475 POTASSIUM 4.2 MMOL/L 07/19 Unknown COMPREHENSIVE METABOLIC 93193 PROT TOT 6.7 GM/DL 2011 Unknown COMPREHENSIVE METABOLIC 60135 Glucose 101 MG/DL 2011 Unknown COMPREHENSIVE METABOLIC 94757 BICARB 27 MMOL/L 2011 Unknown COMPREHENSIVE METABOLIC 45624 ANION GAP 8 MEQ/L 2011 Unknown GFR CALC 5763389 GFR AA >60 ML/MIN 07/19/2012 Unknown GFR CALC 3439320 GFR NON-AA >60 ML/MIN 07/19/2012 Unknown Procedures Procedure Codes Date ROUTINE VENIPUNCTURE CPT-4: 73108 09/24/2019 THER/PROPH/DIAG INJ SC/IM CPT-4: 49899 01/13/2019 TRIAMCINOLONE ACET INJ NOS CPT-4: J3301 01/13/2019 DEXAMETHASONE SODIUM PHOS CPT-4: J1100 01/13/2019 ROUTINE VENIPUNCTURE CPT-4: 42891 09/04/2018 COMPREHEN METABOLIC PANEL CPT-4: 57075 09/04/2018 COMPLETE CBC W/AUTO DIFF WBC CPT-4: 49687 09/04/2018 LIPID PANEL CPT-4: 48032 09/04/2018 ASSAY OF PSA TOTAL CPT-4: 34102 09/04/2018 ASSAY THYROID STIM HORMONE CPT-4: 17476 09/04/2018 URINALYSIS NONAUTO W/O SCOPE CPT-4: 71734 05/15/2018 ROUTINE VENIPUNCTURE CPT-4: 65513 11/16/2017 A FRT/VG P CPT-4: 5431176 11/16/2017 A FOOD C P CPT-4: 8249334 11/16/2017 A NUTS PNL CPT-4: 0858640 11/16/2017 THER/PROPH/DIAG INJ SC/IM CPT-4: 08084 11/06/2017 TRIAMCINOLONE ACET INJ NOS CPT-4: J3301 11/06/2017 DEXAMETHASONE SODIUM PHOS CPT-4: J1100 11/06/2017 ROUTINE VENIPUNCTURE CPT-4: 36530 09/03/2017 ASSAY OF FREE THYROXINE CPT-4: 52996 09/03/2017 ASSAY THYROID STIM HORMONE CPT-4: 77916 09/03/2017 ASSAY TRIIODOTHYRONINE (T3) CPT-4: 26714 09/03/2017 ROUTINE VENIPUNCTURE CPT-4: 08599 07/31/2017 COMPREHEN METABOLIC PANEL CPT-4: 19470 07/31/2017 COMPLETE CBC W/AUTO DIFF WBC CPT-4: 56008 07/31/2017 LIPID PANEL CPT-4: 37936 07/31/2017 FLU VACC PRSV FREE INC ANTIG 65 AND OLDER CPT-4: 40571 07/04/2017 ADMIN INFLUENZA VIRUS VAC CPT-4: G0008 07/04/2017 ROUTINE VENIPUNCTURE CPT-4: 57174 02/26/2017 ASSAY THYROID STIM HORMONE CPT-4: 50348 02/26/2017 COMPREHEN METABOLIC PANEL CPT-4: 22723 02/26/2017 COMPLETE CBC W/AUTO DIFF WBC CPT-4: 64972 02/26/2017 LIPID PANEL CPT-4: 68408 02/26/2017 ASSAY OF PSA TOTAL CPT-4: 64030 02/26/2017 FLUZONE, 5ML (Medicare) CPT-4: Q2038 06/28/2016 ADMIN INFLUENZA VIRUS VAC CPT-4: G0008 06/28/2016 ROUTINE VENIPUNCTURE CPT-4: 48234 05/19/2016 ASSAY OF FREE THYROXINE CPT-4: 99196 05/19/2016 ASSAY THYROID STIM HORMONE CPT-4: 73403 05/19/2016 COMPREHEN METABOLIC PANEL CPT-4: 63244 05/19/2016 COMPLETE CBC W/AUTO DIFF WBC CPT-4: 92676 05/19/2016 LIPID PANEL CPT-4: 68153 05/19/2016 VITAMIN B-12 CPT-4: 45500 05/19/2016 PPPS, initial visit CPT-4: G0438 05/10/2016 ROUTINE VENIPUNCTURE CPT-4: 04793 04/05/2015 ASSAY THYROID STIM HORMONE CPT-4: 26967 04/05/2015 COMPREHEN METABOLIC PANEL CPT-4: 03680 04/05/2015 COMPLETE CBC W/AUTO DIFF WBC CPT-4: 15001 04/05/2015 LIPID PANEL CPT-4: 59749 04/05/2015 ASSAY OF PSA TOTAL CPT-4: 76561 04/05/2015 ROUTINE VENIPUNCTURE CPT-4: 17845 07/19/2012 COMPREHEN METABOLIC PANEL CPT-4: 20641 07/19/2012 LIPID PANEL CPT-4: 21897 07/19/2012 ELECTROCARDIOGRAM COMPLETE CPT-4: 57316 03/22/2012 Vital Signs Date Vital 09/24/2019 Blood Pressure 1: 125/72 Code: 8480-6 BMI: 19.8 Code: 24267-1 Heart Rate 1: 88 bpm Height: 5'11" [...] 1: 102/60 Code: 8480-6 BMI: 19.1 Code: 41340-0 Heart Rate 1: 82 bpm Height: 5'11" Respiratory Rate: 22 bpm SpO2: 97% Tempera ture: 36.4 (C) / 97.6 (F) Weight: 137 lbs 04/25/2018 Blood Pressure 1: 118/64 Code: 8480-6 BMI: 19.2 Code: 77554-5 Heart Rate 1: 98 bpm Height: 5'11" Respiratory Rate: 20 bpm SpO2: 99% Tempera ture: 36.4 (C) / 97.6 (F) Weight: 138 lbs 11/06/2017 Blood Pressure 1: 108/68 Code: 8480-6 BMI: 18.5 Code: 83183-3 Heart Rate 1: 68 bpm Height: 5'11" Respiratory Rate: 20 bpm SpO2: 96% Tempera ture: 36.8 (C) / 98.2 (F) Weight: 133 lbs 09/03/2017 Blood Pressure 1: 122/64 Code: 8480-6 BMI: 17.6 Code: 39131-5 Heart Rate 1: 90 bpm Height: 5'11" Respiratory Rate: 20 bpm SpO2: 98% Tempera ture: 36.4 (C) / 97.6 (F) Weight: 126 lbs 08/21/2017 Blood Pressure 1: 114/80 Code: 8480-6 BMI: 17.9 Code: 13788-6 Heart Rate 1: 80 bpm Height: 5'11" Respiratory Rate: 20 bpm SpO2: 95% Tempera ture: 36.6 (C) / 97.9 (F) Weight: 128 lbs 02/13/2017 Blood Pressure 1: 122/60 Code: 8480-6 BMI: 18.5 Code: 88699-8 Heart Rate 1: 76 bpm Height: 5'11" Respiratory Rate: 20 bpm SpO2: 96% Tempera ture: 36.9 (C) / 98.4 (F) Weight: 133 lbs 11/23/2016 Blood Pressure 1: 126/70 Code: 8480-6 BMI: 18.5 Code: 00127-6 Heart Rate 1: 100 bpm Height: 5'11" Respiratory Rate: 20 bpm SpO2: 96% Tempera ture: 37.1 (C) / 98.8 (F) Weight: 133 lbs 05/23/2016 Blood Pressure 1: 128/82 Code: 8480-6 BMI: 18.5 Code: 60569-6 Heart Rate 1: 88 bpm Height: 5'11" Respiratory Rate: 20 bpm Temperature: 36 .7 (C) / 98.0 (F) Weight: 133 lbs 05/10/2016 Blood Pressure 1: 146/70 Code: 8480-6 BMI: 18.5 Code: 28433-3 Heart Rate 1: 84 bpm Height: 5'11" Respiratory Rate: 20 bpm Temperature: 36 .7 (C) / 98.1 (F) Weight: 133 lbs 04/01/2015 Blood Pressure 1: 102/60 Code: 8480-6 BMI: 18.5 Code: 73632-9 Heart Rate 1: 64 bpm Height: 5'11" Respiratory Rate: 20 bpm Temperature: 36 .8 (C) / 98.2 (F) Weight: 133 lbs 01/13/2014 Blood Pressure 1: 124/78 Code: 8480-6 BMI: 19.8 Code: 81627-4 Heart Rate 1: 76 bpm Height: 5'11" Respiratory Rate: 20 bpm Temperature: 36 .8 (C) / 98.2 (F) Weight: 142 lbs 04/03/2012 Blood Pressure 1: 106/76 Code: 8480-6 BMI: 20.9 Code: 92189-6 Heart Rate 1: 84 bpm Height: 5'11" Respiratory Rate: 20 bpm Temperature: 36 .7 (C) / 98.0 (F) Weight: 150 lbs 12/20/2011 Blood Pressure 1: 116/60 Code: 8480-6 BMI: 20.1 Code: 26614-4 Heart Rate 1: 80 bpm Height: 5'11" Respiratory Rate: 20 bpm Temperature: 36 .4 (C) / 97.6 (F) Weight: 144 lbs 10/24/2011 Blood Pressure 1: 132/74 Code: 8480-6 BMI: 19.7 Code: 82947-1 Heart Rate 1: 96 bpm Height: 5'11" [...] Hospital Fwup/Dr Christian rojas follow up 02/23/2010 [facility], appt with Dr Bajwa 03/22/10 insomnia 01/12/2010 problems falling and staying asleep, takes nortriptyline Encounters Encounter Performer Location Codes Date ([id number]) OFFICE/OUTPATIENT VISIT EST Diagnosis: Encounter for therapeutic drug level monitoring[ICD10: Z51.81] Diagnosis: Essential tremor[ICD10: G25.0] Verna Alvarez [employer] CPT-4: 00447 09/24/2019 ([id number]) OFFICE/OUTPATIENT VISIT EST Diagnosis: Noninfective gastroenteritis and colitis, unspecified[ICD10: K52.9] Diagnosis: Hemorrhage of anus and rectum[ICD10: K62.5] Vonnie Reid [employer] [facility] [employer] CPT-4: 21816 05/26/2019 ([id number]) OFFICE/OUTPATIENT VISIT EST Diagnosis: Other intervertebral disc degeneration, 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] Diagnosis: Other forms of dyspnea[ICD10: R06.09] Vonnie Bowman JOELLETAYLOR VISHAL Loza [employer] CPT-4: 68895 03/17/2019 OFFICE/OUTPATIENT VISIT EST Diagnosis: Other intervertebral disc degeneration, 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] Diagnosis: Other symptoms and signs involving the musculoskeletal system[ICD10: R29.898] Vonnie Reid VONNIE [facility]ia [employer] CPT-4: 81123 02/18/2019 ([id number]) OFFICE/OUTPATIENT VISIT EST Diagnosis: Other allergic rhinitis[ICD10: J30.89] Akilah GASPAR [employer] [employer] CPT-4: 81293 01/13/2019 ([id number]) NURSE/OUTPATIENT VISIT EST Diagnosis: Mixed hyperlipidemia[ICD10: E78.2] Diagnosis: Essential (primary) hypertension[ICD10: I10] Diagnosis: Encounter for screening for malignant neoplasm of prostate[ICD10: Z12.5] Diagnosis: Encounter for general adult medical examination with abnormal findings[ICD10: Z00.01] Diagnosis: Benign prostatic hyperplasia without lower urinary tract symptoms[ICD10: N40.0] Vonnie MATHEWS DO [facility] CPT-4: 73210 09/04/2018 ([id number]) OFFICE/OUTPATIENT VISIT EST Diagnosis: Otorrhea, left ear[ICD10: H92.12] Diagnosis: Impacted cerumen, right ear[ICD10: H61.21] Verna MATHEWS DO [facility] CPT-4: 00484 09/03/2018 ([id number]) OFFICE/OUTPATIENT VISIT EST Diagnosis: Other intervertebral disc degeneration, 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] Diagnosis: Primary insomnia[ICD10: F51.01] Diagnosis: Essential tremor[ICD10: G25.0] Vonnie MATHEWS DO [facility] CPT-4: 38803 08/26/2018 ([id number]) OFFICE/OUTPATIENT VISIT EST Diagnosis: Pelvic and perineal pain[ICD10: R10.2] Verna MATHEWS [facility] CPT-4: 48400 05/15/2018 ([id number]) OFFICE/OUTPATIENT VISIT EST Diagnosis: Encounter for therapeutic drug level monitoring[ICD10: Z51.81] Diagnosis: Acute sinusitis, unspecified[ICD10: J01.90] Diagnosis: Other intervertebral disc degeneration, 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] Diagnosis: Essential tremor[ICD10: G25.0] Diagnosis: Raynaud's syndrome without gangrene[ICD10: I73.00] Verna MATHEWS DO [facility] CPT-4: 18143 04/25/2018 ([id number]) OFFICE/OUTPATIENT VISIT EST Diagnosis: Idiopathic urticaria[ICD10: L50.1] Diagnosis: Other urticaria[ICD10: L50.8] Vonnie MATHEWS DO [facility] CPT-4: 86120 11/16/2017 ([id number]) OFFICE/OUTPATIENT VISIT EST Diagnosis: Idiopathic urticaria[ICD10: L50.1] Diagnosis: Other urticaria[ICD10: L50.8] Diagnosis: Other forms of dyspnea[ICD10: R06.09] Vonnie BREWERNE Denia MATHEWS [facility] CPT-4: 12175 11/06/2017 ([id number]) OFFICE/OUTPATIENT VISIT EST Diagnosis: Dyspnea, unspecified[ICD10: R06.00] Diagnosis: Abnormal weight loss[ICD10: R63.4] Vonnie DOUGLASS REA MATHEWS [employer] [facility] CPT-4: 71211 09/03/2017 ([id number]) OFFICE/OUTPATIENT VISIT EST 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] Diagnosis: Mixed hyperlipidemia[ICD10: E78.2] Diagnosis: Essential tremor[ICD10: G25.0] Diagnosis: Essential (primary) hypertension[ICD10: I10] Diagnosis: Abnormal weight loss[ICD10: R63.4] Vonnie LUCIA Denia MATHEWS [employer] [facility] CPT-4: 06201 08/21/2017 ([id number]) OFFICE/OUTPATIENT VISIT EST Diagnosis: Mixed hyperlipidemia[ICD10: E78.2] Diagnosis: Essential (primary) hypertension[ICD10: I10] 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] Diagnosis: Anemia, unspecified[ICD10: D64.9] Vonnie Galarza Denia BOWMAN [employer] [facility] CPT-4: 31439 07/31/2017 ([id number]) OFFICE/OUTPATIENT VISIT EST Diagnosis: FLU VACCINE[ICD10: Z23] Vonnie COLMENARES Denia BOWMAN [employer] [facility] CPT-4: 91254 07/04/2017 ([id number]) OFFICE/OUTPATIENT VISIT EST Diagnosis: Mixed hyperlipidemia[ICD10: E78.2] Diagnosis: Essential tremor[ICD10: G25.0] 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] Diagnosis: Essential (primary) hypertension[ICD10: I10] Diagnosis: Supraventricular tachycardia[ICD10: I47.1] Diagnosis: Other fatigue[ICD10: R53.83] Diagnosis: Encounter for screening for malignant neoplasm of prostate[ICD10: Z12.5] Vonnie COLMENARES JustinKim COLBY [employer] [facility] CPT-4: 48002 02/26/2017 ([id number]) OFFICE/OUTPATIENT VISIT EST Diagnosis: Essential tremor[ICD10: G25.0] Vonnie MATHEWS DO [facility] CPT-4: 29427 02/13/2017 ([id number]) OFFICE/OUTPATIENT VISIT EST Diagnosis: Essential tremor[ICD10: G25.0] Diagnosis: Other intervertebral disc degeneration, 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] Vonnie MATHEWS DO [facility] CPT-4: 96102 11/23/2016 ([id number]) OFFICE/OUTPATIENT VISIT EST Diagnosis: FLU VACCINE[ICD10: Z23] Vonnie GERMAN DO [facility] CPT-4: 97590 06/28/2016 OFFICE/OUTPATIENT VISIT EST Diagnosis: Open bite of right hand, initial encounter[ICD10: S61.451A] Vonnie MATHEWS DO [facility] CPT-4: 36767 05/23/2016 ([id number]) OFFICE/OUTPATIENT VISIT EST Diagnosis: Encounter for general adult medical examination with abnormal findings[ICD10: Z00.01] Diagnosis: Mixed hyperlipidemia[ICD10: E78.2] Diagnosis: Essential tremor[ICD10: G25.0] 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] Vonnie MATHEWS DO [facility] CPT-4: 64640 05/19/2016 ([id number]) OFFICE/OUTPATIENT VISIT EST Diagnosis: HYPERLIPIDEMIA NEC/NOS[ICD9: 272.4] Diagnosis: CAD[ICD9: 414.00] Diagnosis: TACHYCARDIA[ICD9: 785.0] Diagnosis: HYPERTENSION[ICD9: 401.9] Diagnosis: Routine medical exam[ICD9: V70.0] Vonnie MATHEWS DO [facility] CPT-4: 12373 04/05/2015 ([id number]) OFFICE/OUTPATIENT VISIT EST Diagnosis: HYPERTENSION[ICD9: 401.9] Diagnosis: HYPERLIPIDEMIA NEC/NOS[ICD9: 272.4] Diagnosis: CAD[ICD9: 414.00] Diagnosis: LUMB/LUMBOSAC DISC DEGEN[ICD9: 722.52] Vonnie Colbyranjan DOLLY GASPAR Denia MATHEWS DO [facility] CPT-4: 50939 04/01/2015 ([id number]) OFFICE/OUTPATIENT VISIT EST Diagnosis: CHEST PAIN NOS[ICD9: 786.50] Diagnosis: PAIN IN THORACIC SPINE[ICD9: 724.1] Diagnosis: HYPERTENSION[ICD9: 401.9] Diagnosis: GERD[ICD9: 530.81] Vonnie SCHULTZNDER [facility] CPT-4: 04592 01/13/2014 ([id number]) OFFICE/OUTPATIENT VISIT EST Diagnosis: CAD[ICD9: 414.00] Diagnosis: HYPERLIPIDEMIA NEC/NOS[ICD9: 272.4] Vonnie CERVANTES WILFRIDO SKim ROMULONDER DO [facility] CPT-4: 37201 07/19/2012 ([id number]) OFFICE/OUTPATIENT VISIT EST Diagnosis: CAD[ICD9: 414.00] Diagnosis: INSOMNIA NOS[ICD9: 780.52] Vonnie Romuloraheemranjan LAIVONNIE JustinKim OR YULISA [facility] CPT-4: 51634 04/03/2012 ([id number]) OFFICE/OUTPATIENT VISIT EST Diagnosis: CHEST PAIN NOS[ICD9: 786.50] Diagnosis: CAD[ICD9: 414.00] Vonnie MaciasKim ROMLUONDER DO [facility] CPT-4: 99110 03/22/2012 ([id number]) OFFICE/OUTPATIENT VISIT EST Diagnosis: PROSTATITIS[ICD9: 601.9] Diagnosis: TREMOR NEC[ICD9: 333.1] Vonnie ASCENCIOLINE JustinKim ROMULOND ER DO [facility] CPT-4: 79179 12/20/2011 OFFICE/OUTPATIENT VISIT EST Diagnosis: TREMOR NEC[ICD9: 333.1] Diagnosis: TACHYCARDIA[ICD9: 785.0] Diagnosis: HYPERTENSION[ICD9: 401.9] Vonnie Romuloraheemranjan LAIVONNIE JustinKim ORE NDER DO [facility] CPT-4: 76143 10/24/2011 OFFICE/OUTPATIENT VISIT EST Vonnie ASCENCIOLINE JustinKim ROMULO NDER DO [facility] CPT- 4: 18226 03/13/2011 ([id number]) OFFICE/OUTPATIENT VISIT EST Vonnie Mathews DOLLY HawkVISHAL SK[employer] ORENDER DO [facility] CPT-4: 47039 02/20/2011 ([id number]) OFFICE/OUTPATIENT VISIT, GINETTE MATHEWS DO [employer] CPT-4: 76875 02/23/2010 ([id number]) OFFICE/OUTPATIENT VISIT, EST Vonnie MATHEWS DO [employer] CPT-4: 08908 01/12/2010 Plan of Care Planned Activity Notes Codes Status Date Appointment: Verna Ramirez [address] [facility] [place] RESCHEDULED 09/25/2019 Visit Diagnosis Plan: Essential tremor Discussion: sta ble on clonazepam. educated patient about purchasing a large, heavy pen that will allow him to improve his writing. instructed him that pens can be purchased on [employer]. ICD-9 : 333.1 ICD-10 : G25.0 09/24/2019 Visit Diagnosis Plan: Encounter for therapeutic drug l evel monitoring Discussion: UDS and contract completed today. ICD-9 : V58.83 ICD-10 : Z51.81 09/24/2019 Appointment: Verna Ramirez [address] [place], [place] [id number] MEDICATION REVIEW 09/24/2019 Visit Diagnosis Plan: Noninfective gastroenteritis and colitis, unspecified Discussion: Flagyl [place] diet Update colonoscopy ICD-9 : 558.9 ICD-10 : K52.9 05/26/2019 Visit Diagnosis Plan: Hemorrhage of anus and rectum Di scussion: Update colonoscopy ICD-9 : 569.3 ICD-10 : K62.5 05/26/2019 Appointment: Vonnie Mathews WPtel: [address] [place], [place] [phone] [place] record request faxed 05/23; LM with medical records 05/26/19 Hospital Follow Up 05/26/2019 Care Plan: Referral Order SNOMED-CT : 30 [id number] Pending 05/26/2019 Visit Diagnosis Plan: Other intervertebral disc degene ration, lumbar region Discussion: Increase lyrica to 150mg po q HS Continue stretches from PT [facility] Fwup after that appointment ICD-9 : 722.52 ICD-10 : M51.36 03/17/2019 Appointment: Vonnie Mathews WPtel: [address] [place] [address] [place] FOLLOW UP 03/17/2019 Visit Diagnosis Plan: [...] : R29.898 02/18/2019 Appointment: Vonnie Mathews WPtel: [address] [place] [address] FOLLOW UP 02/18/2019 Appointment: Vonnie Mathews WPtel: [address] [place] [address] [place] CANCELED 02/18/2019 Visit Diagnosis Plan: Other [...] ICD-10 : J30.89 01/13/2019 Appointment: Akilah Lopez [facility] [place] [address] [place] Due for annual wellness ACUTE ILLNESS 01/14/20 Appointment: Vonnie Mathews WPtel: [address] [place], [place] [address] [place] LAB 09/04/2018 Visit Diagnosis Plan: Impacted [...] ICD-10 : H92.12 09/03/2018 Appointment: Verna Ramirez [address] [place] [address] ACUTE ILLNESS 09/03/2018 Visit Diagnosis Plan: Primary [...] M51.36 08/26/2018 Appointment: Vonnie Mathews WPtel: [phone] [facility] [place] FOLLOW UP 08/26/2018 Visit Diagnosis Plan: [...] ICD-10 : R10.2 05/15/2018 Appointment: Verna Ramirez [address] [place], [place] [id number] ACUTE ILLNESS 05/15/2018 Patient Education: Patient Medication Summary Completed 05/15/2018 Care Plan: US EXAM PELVIC COMPLETE scrotal LOINC : 00850-4 Pending 05/15/2018 Visit Diagnosis Plan: Other intervertebral [...] ICD-10 : I73.00 04/25/2018 Appointment: Verna Ramirez [address] [place] [address] MEDICATION REVIEW 04/25/2018 Patient Education: Patient Medication Summary Completed 04/25/2018 Appointment: Vonnie Mathewstel: [address] [place] [address] 11/16/2017 Patient Education: Patient Medication Summary Completed [...] : L50.1 11/06/2017 Appointment: Vonnie Mathews WPtel: [address] [place] [address] FOLLOW UP 11/06/2017 Patient Education: Patient Medication [...] : R63.4 09/03/2017 Appointment: Vonnie Mathews WPtel: [address] [place], [place] [phone] FOLLOW UP 09/03/2017 Patient Education: Patient Medication [...] : I25.10 08/21/2017 Appointment: Vonnie Mathews WPtel: [address] [place], [place] [phone] FOLLOW UP 08/21/2017 Patient Education: Patient Medication Summary Completed 08/21/2017 Appointment: Vonnie Mathewstel: [address] [place], [place] [phone] [place] LAB 07/31/2017 Patient Education: Patient Medication Summary Completed 07/31/2017 Appointment: Vonnie Mathews WPtel: [address] [place], [place] [id number] [place] INJECTION 07/04/2017 Patient Education: Patient Medication Summary Completed 07/04/2017 Appointment: Vonnie Mathews WPtel: [address] [place], [place] [phone] [place] LAB 02/26/2017 Patient Education: Patient Medication Summary Completed 02/26/2017 Visit Diagnosis Plan: Essential tremor Discussion: Con tinue clonazepam at 1mg q AM and primidone 50mg q HS Follow Up: 3 months ICD-9 : 333.1 ICD-10 : G25.0 02/13/2017 Appointment: Vonnie Mathews WPtel: [address] [place], [place] [phone] 02/08 confirmed~sl FOLLOW UP 02/13/2017 Patient Education: Patient Medication Summary Completed 02/13/2017 Appointment: Vonnie Mathews WPtel: [address] [place], [place] [phone] RESCHEDULED 01/23/2017 Visit Diagnosis Plan: Other intervertebral disc degene ration, lumbar region Discussion: DC oxycodone Tramadol 50mg 1-2 po TID prn pain Follow Up: 2 months ICD-9 : 722.52 ICD-10 : M51.36 11/23/2016 Visit Diagnosis Plan: Essential tremor Discussion: Inc rease clonazepam to 1mg po BID Discussed sinemet ICD-9 : 333.1 ICD-10 : G25.0 11/23/2016 Appointment: Vonnie Mathews WPtel: [address] [place], [place] [phone] [place] 11/22 confirmed~sl MEDICATION REVIEW 11/23/2016 Patient Education: Patient Medication Summary Completed 11/23/2016 Patient Education: [facility] - [employer] - Clonazepam - 18-64 - Dynamic Portal ID Completed 11/23/2016 Appointment: Vonnie Mathews WPtel: [address] [place], [place] [phone] [place] INJECTION 06/28/2016 Patient Education: Patient Medication Summary Completed 06/28/2016 Referral: Feranndo Day WPtel: #1 [facility] Shilpa Lopez [id number] per Maribeth, the patient is sched uled [...] if worsening 05/23/2016 Appointment: Vonnie Mathews WPtel: [address] [place] [address] ER Follow UP 05/23/2016 Patient Education: Patient Medication Summary Completed 05/23/2016 Appointment: Vonnie Mathews WPtel: [phone] [place], [place] [phone] [place] LAB 05/19/2016 Patient Education: Patient Medication Summary Completed 05/19/2016 Visit Plan: Change coreg to 3.125mg BID Trial of low dose clonazepam 0.5mg BID for tremors Fwup with Dr. Ramsey as scheduled Return for fasting lab--CBC, CMP, TSH, free T4, Lipids, PSA, B12 Proceed with Colonoscopy 05/10/2016 Appointment: Vonnie Mathews WPtel: [address] [place], [place] [phone] 05/09 confirmed~sl Annual Well Visit 05/10/2016 Patient Education: Patient Medication Summary Completed 05/10/2016 Care Plan: Referral Order SNOMED-CT : 30 [id number] Pending 05/10/2016 Appointment: Vonnie Mathews WPtel: [phone] [facility] [place] Rescheduled for 05/10/16 at 2PM~lb RESCHEDULED 04/26/2016 Referral: Danilo Ramsey WPtel: [phone] [id number] [place] Referral Initiated 04/29/2015 Appointment: Vonnie Mathews WPtel: [address] [place], [place] [phone] [place] LAB 04/05/2015 Patient Education: Patient Medication Summary Completed 04/05/2015 Visit Plan: Return in AM for fasting lab --CMP, lipids, CBC, TSH, PSA Change hydrocodone to oxycodone 7.5/325mg 1-2 po TID Schedule with cardiology Needs colonoscopy once cardiology evaluation complete Will need to restart chol meds after lab Recheck 1mo on pain meds 04/01/2015 Appointment: Vonnie Mathews WPtel: [address] [place], [place] [phone] [place] 03/31 confirmed -mf PHYSICAL 04/01/2015 Patient Education: Patient Medication Summary Completed 04/01/2015 Appointment: Vonnie Mathews WPtel: [address] [place], [place] [phone] Annual Well Visit 09/23/2014 Visit Plan: Continue protonix Pt has fwu p with Card next month Rec chiropracter or PT for ribs/thoracics being out and could be contributing to chest pain 01/13/2014 Appointment: Vonnie Mathews WPtel: [address] [place], [place] [phone] [place] FOLLOW UP 01/13/2014 Patient Education: Patient Medication Summary Completed 01/13/2014 Appointment: Ariella Mcnally WPtel: [address] [place], [place] [phone] [place] FOLLOW UP 12/12/2013 Appointment: Malika Cárdenas WPtel: [address] [place] [address] PHYSICAL 12/12/2013 Appointment: Vonnie Mathews WPtel: [address] [place], [place] [id number] ACUTE ILLNESS 02/20/2013 Appointment: Vonnie Mathews WPtel: [address] [place] [address] [place] LAB 07/19/2012 Patient Education: Patient Medication Summary Completed 07/19/2012 Appointment: Vonnei Mathewstel: [address] [place] [address] FOLLOW UP 04/03/2012 Patient Education: Patient Medication Summary Completed 04/03/2012 Appointment: Vonnie Mathews WPtel: [address] [place] [address] ACUTE ILLNESS 03/22/2012 Patient Education: Patient Medication Summary Completed 03/22/2012 Appointment: Vonnie Mathewstel: [address] [place] [address] FOLLOW UP 12/26/2011 Visit Plan: Add Cipro Continue current m eds 12/20/2011 Appointment: Vonnie Mathews WPtel: [address] [place] [address] ACUTE ILLNESS 12/20/2011 Patient Education: Patient Medication Summary Completed 12/20/2011 Visit Plan: Change neurontin to Cymbalta 30mg for 1wk then 60mg QD Add Propranolol for tremor 10/24/2011 Appointment: Vonnie Mathewstel: [address] [place] [address] ACUTE ILLNESS 10/24/2011 Appointment: Vonnie Mathewstel: [address] [place] [address] ACUTE ILLNESS 10/24/2011 Patient Education: Patient Medication Summary Completed 10/24/2011 Visit Plan: Continue current meds and fw up with Card as scheduled 03/13/2011 Appointment: Vonnie Mathewstel: [address] [place] [address] FOLLOW UP 03/13/2011 Patient Education: Patient Medication Summary Completed 03/13/2011 Visit Plan: Will obtain all records and lab from [facility] Discussed will likely need heart cath which pt states that Patricia did talk to him about in the hospital 02/20/2011 Appointment: Vonnie Mathews WPtel: [address] [place], [place] [phone] ACUTE ILLNESS 02/20/2011 Patient Education: Patient Medication Summary Completed 02/20/2011 Visit Plan: Cont Pepcid and Prilosec See Card for cardiac cath. 02/23/2010 Appointment: Vonnie Mathews WPtel: [address] [place], [place] [phone] FOLLOW UP 02/23/2010 Patient Education: Patient Medication Summary Completed 02/23/2010 Visit Plan: Increase Pamelor to 75mg qhs Increase Hydrocodone to 10/325mg 1-2 po q6 prn 01/12/2010 Appointment: Vonnie Mathews WPtel: [address] [place], [place] [address] ACUTE ILLNESS 01/12/2010 Patient Education: Patient Medication Summary Completed 01/12/2010 Referral: Iván Pardo WPtel: [facility] [address] Referral Initiated Referral: Fernando Day WPtel: #1 [id number] [place] Referral Completed Referral: Fernando Day WPtel: #1 [id number] [place] Referral Appointment Requested Instructions Comment . [...]
--- OUTSIDE RECORDS SUMMARY | 2020-02-10 08:29 | XMS REPORT | CCD ---
Author Author Nash Mathews D.O. Organization [facility]ONNIE [facility]HE[facility] DO [facility] Address [address] [place] [address] Phone Care Team Providers Care Trimmer Operator Name Role Phone Vonnie Mathews D.O., PP Unavailable CCM Unavailable Summary Purpose Interface Exchange Insurance Providers Payer name Policy type / Coverage type Covered alliance party ID Effective Begin Date Effective End Date WPS MEDICARE PART B [place] Medicare Part B [id number] 2018 Unknown Family History Family History data not found Social History Social History Element Codes Description Effective Dates Marital status Unknown 10/24/[address]: 962974123 Nonsmoker 03/29/2011 Allergies, Adverse Reactions, Alerts Substance [...] R63.4 08/21/2017 Active 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: [...] Fill Instructions clonazepam 1 mg tablet RxNorm: 801947 TAKE 1 TABLET BY MOUTH EV SUSAN AM 09/23/2019 10/22/2019 Active clonazepam 1 mg tablet RxNorm: 161538 TAKE 1 TABLET BY MOUTH EV SUSAN AM 08/21/2019 09/22/2019 Inactive Singulair 10 mg tablet RxNorm: 295852 TABLET(S) 1 TABLET(S) PO QD 1 10/11/2019 Active Flagyl 500 mg tablet RxNorm: 909754 1 Tablet(s) PO TID 05/26/2019 Inactive clonazepam 1 mg tablet RxNorm: 558367 TAKE 1 TABLET BY MOUTH EV SUSAN MORNING 05/23/2019 06/21/2019 Inactive pravastatin 20 mg tablet RxNorm: 494622 1 Tablet(s) PO QD 04/14/2019 10/10/2019 Active Needs updated fasting labs Singulair 10 mg tablet RxNorm: 051822 Tablet(s) 1 TABLET(S) PO QD 0 04/14/2019 07/12/2019 Inactive clonazepam 1 mg tablet RxNorm: 223449 1 Tablet(s) PO QAM 02/21/2019 0 05/23/2019 Inactive Bevespi Aerosphere 9 mcg-4.8 mcg HFA aerosol inhaler RxNorm: 8198844 2 Puff(s) INH BID 02/19/2019 No Stop Date Active ProAir HFA 90 mcg/actuation aerosol inhaler RxNorm: 066918 2 Puff(s) INH Q4H as needed 02/19/2019 09/24/2019 Inactive metoprolol tartrate 25 mg tablet RxNorm: 888972 1/2 Tablet(s) PO BI D 02/18/2019 05/18/2019 Inactive pravastatin 20 mg tablet RxNorm: 538169 1 Tablet(s) PO QD Needs updated fasting labs 01/13/2019 04/14/2019 Inactive Needs updated fa sting labs Singulair 10 mg tablet RxNorm: 557236 Tablet(s) 1 TABLET(S) PO QD 0 01/13/2019 04/12/2019 Inactive Plavix 75 mg tablet RxNorm: 741999 Tablet(s) 1 TABLET(S) PO QD 04/201906/20/2019 Inactive [SAVINGS FOR NON-COVERED SHANDA -- BIN:902191, PCN: ASPROD1, Group: XXXXX, ID# [id number], Questions: . THIS IS NOT INSURANCE.] Singulair 10 mg tablet RxNorm: 187115 1 TABLET(S) PO QD 10/29/2018 Inactive primidone 50 mg tablet RxNorm: 353995 2 TABLET(S) PO BI D TAKE 2 TABLETS BY MOUTH EVERY NIGHT AT BEDTIME 10/07/2018 01/12/2019 Inactive Patient requests 90 days supply pravastatin 20 mg tablet RxNorm: 968208 1 TABLET(S) PO QD 09/23/2018 01/12/2019 Inactive clonazepam 1 mg tablet RxNorm: 390819 1 Tablet(s) PO QAM 09/19/2018 0 12/17/2018 Inactive primidone 50 mg tablet RxNorm: 991491 TABLET(S) TAKE 2 TABLETS BY MOUTH EVERY NIGHT AT BEDTIME 09/18/2018 01/12/2019 Inactive ciprofloxacin 0.2 % ear drops in a dropperette RxNorm: 97117 6 2 Drop(s) left otic (ear) BID 09/03/2018 09/09/2018 Inactive primidone 50 mg tablet RxNorm: 854982 2 Tablet(s) PO BI D TAKE 2 TABLETS BY MOUTH EVERY NIGHT AT BEDTIME 08/26/2018 10/06/2018 Inactive Ambien 5 mg tablet RxNorm: 534951 TAKE 1 TABLET BY MOUTH EVERY NIGHT AT BEDTIME 08/05/2018 09/03/2018 Inactive Singulair 10 mg tablet RxNorm: 713287 1 TABLET(S) PO QD 07/23/2018 Inactive clonazepam 1 mg tablet RxNorm: 812061 TAKE 1 TABLET BY MOUTH EV SUSAN MORNING 07/23/2018 08/21/2018 Inactive Plavix 75 mg tablet RxNorm: 517262 1 TABLET(S) PO QD 07/04/201812/22 Inactive [SAVINGS FOR NON-COVERED DRUGS -- BIN:00 3585, PCN: ASPROD1, Group: XXXXX, ID# [id number], Questions: . THIS IS NOT INSURANCE.] clonazepam 1 mg tablet RxNorm: 386389 TAKE 1 TABLET BY MOUTH EV SUSAN MORNING 06/25/2018 07/23/2018 Inactive clonazepam 1 mg tablet RxNorm: 955331 TAKE 1 TABLET BY MOUTH EV SUSAN MORNING 05/23/2018 06/21/2018 Inactive primidone 50 mg tablet RxNorm: 895964 Tablet(s) TAKE 2 TABLETS BY MOUTH EVERY NIGHT AT BEDTIME 05/16/2018 08/25/2018 Inactive oxycodone-acetaminophen 7.5 mg-325 mg tablet RxNorm: 6279033 1-2 Tablet(s) PO TID as needed 04/25/2018 05/24/2018 Inactive Singulair 10 mg tablet RxNorm: 172528 1 Tablet(s) PO QD 04/25/2018 Inactive Medrol (Jose) 4 mg tablets in a dose pack RxNorm: 573413 Tablet(s) PO take as directed 04/25/2018 09/02/2018 Inactive clonazepam 1 mg tablet RxNorm: 808132 TAKE 1 TABLET BY MOUTH EV SUSAN MORNING 04/24/2018 05/22/2018 Inactive Plavix 75 mg tablet RxNorm: 938223 1 TABLET(S) PO QD 04/04/201807/02 Inactive [SAVINGS FOR NON-COVERED DRUGS -- BIN:00 358, PCN: ASPROD1, Group: XXXXX, ID# [id number], Questions: . THIS IS NOT INSURANCE.] pravastatin 20 mg tablet RxNorm: 895713 1 Tablet(s) PO QD 03/21/2018 09/16/2018 Inactive ProAir HFA 90 mcg/actuation aerosol inhaler RxNorm: 980933 2 Puff(s) INH Q4H as needed 03/18/2018 03/17/2018 Inactive tamsulosin 0.4 mg capsule RxNorm: 404421 1 CAPSULE(S) PO QD 018 01/12/2019 Inactive clonazepam 1 mg tablet RxNorm: 067573 1 Tablet(s) PO QAM 02/25/2018 0 04/25/2018 Inactive tamsulosin 0.4 mg capsule RxNorm: 375005 1 Capsule(s) PO QD 018 03/13/2018 Inactive tamsulosin 0.4 mg capsule RxNorm: 738855 1 Capsule(s) PO QD 018 02/03/2018 Inactive tamsulosin 0.4 mg capsule RxNorm: 984141 1 Capsule(s) PO QD 018 02/12/2018 Inactive Ambien 5 mg tablet RxNorm: 166262 Tablet(s) TAKE 1 TAB LET BY MOUTH EVERY NIGHT AT BEDTIME 01/24/2018 08/05/2018 Inactive primidone 50 mg tablet RxNorm: 310051 Tablet(s) TAKE 2 TABLETS BY MOUTH EVERY NIGHT AT BEDTIME 01/18/2018 05/16/2018 Inactive cyclobenzaprine 10 mg tablet RxNorm: 633807 1 Tablet(s) PO TID as needed for muscle spasm 01/11/2018 02/09/2018 Inactive [SAVINGS FOR NON -COVERED DRUGS -- BIN:004780, PCN: ASPROD1, Group: XXXXX, ID# [id number], Questions: . THIS IS NOT INSURANCE.] clonazepam 1 mg tablet RxNorm: 388860 1 Tablet(s) PO QAM 12/24/2017 0 02/21/2018 Inactive prednisone 20 mg tablet RxNorm: 510979 1 Tablet(s) PO QD 11/06/2017 0 11/10/2017 Inactive EpiPen 2-Jose 0.3 mg/0.3 mL injection, auto-injector RxNorm: 853059 1 Unit Dose IM as needed 11/06/2017 09/24/2019 Inactive ProAir HFA 90 mcg/actuation aerosol inhaler RxNorm: 194670 2 Puff(s) INH Q4H as needed 10/30/2017 03/17/2018 Inactive primidone 50 mg tablet RxNorm: 819826 TAKE 2 TABLETS BY MOUTH EVERY NIGHT AT BEDTIME 10/15/2017 01/17/2018 Inactive Plavix 75 mg tablet RxNorm: 788865 1 Tablet(s) PO QD 10/01/201703/29 Inactive [SAVINGS FOR NON-COVERED DRUGS -- BIN:00 3585, PCN: ASPROD1, Group: XXXXX, ID# [id number], Questions: . THIS IS NOT INSURANCE.] clonazepam 1 mg tablet RxNorm: 445938 1 Tablet(s) PO QAM 09/19/2017 0 12/16/2017 Inactive primidone 50 mg tablet RxNorm: 148054 2 Tablet(s) PO QHS 08/29/2017 0 01/18/2018 Inactive oxycodone-acetaminophen 7.5 mg-325 mg tablet RxNorm: 3158598 1-2 Tablet(s) PO TID as needed 08/22/2017 09/19/2017 Inactive pravastatin 20 mg tablet RxNorm: 316709 1 Tablet(s) PO QD 08/21/2017 03/21/2018 Inactive carvedilol 3.125 mg tablet RxNorm: 996267 1 Tablet(s) P O BID to replace 6.25mg dose 08/21/2017 09/02/2017 Inactive primidone 50 mg tablet RxNorm: 397849 TAKE 2 TABLETS BY MOUTH EVERY NIGHT AT BEDTIME 06/18/2017 08/28/2017 Inactive clonazepam 1 mg tablet RxNorm: 712198 1 Tablet(s) PO QAM 06/04/2017 1 11/02/2016 Inactive Plavix 75 mg tablet RxNorm: 184802 1 Tablet(s) PO QD 04/10/201710/01 Inactive [SAVINGS FOR NON-COVERED DRUGS -- BIN:00 3585, PCN: ASPROD1, Group: XXXXX, ID# [id number], Questions: . THIS IS NOT INSURANCE.] pravastatin 20 mg tablet RxNorm: 544507 1 Tablet(s) PO QD 02/26/2017 08/24/2017 Inactive carvedilol 3.125 mg tablet RxNorm: 751935 1 Tablet(s) P O BID to replace 6.25mg dose 02/26/2017 08/21/2017 Inactive Ultram 50 mg tablet RxNorm: 587393 TAKE 1 TO 2 TABLETS BY MOUTH THREE TIMES DAILY NEEDED FOR PAIN 02/26/2017 03/07/2017 Inactive pravastatin 20 mg tablet RxNorm: 899849 1 Tablet(s) PO QD 02/26/2017 08/21/2017 Inactive carvedilol 3.125 mg tablet RxNorm: 012266 1 Tablet(s) P O BID to replace 6.25mg dose 02/26/2017 08/20/2017 Inactive clonazepam 0.5 mg tablet RxNorm: 159193 1 Tablet(s) PO QAM 02/14/20 17 02/13/2017 Inactive primidone 50 mg tablet RxNorm: 774570 1 Tablet(s) PO QHS 02/13/2017 0 05/01/2017 Inactive clonazepam 1 mg tablet RxNorm: 217903 1 Tablet(s) PO QAM 02/13/2017 0 05/13/2017 Inactive primidone 50 mg tablet RxNorm: 561468 1/2 Tablet(s) PO QD for 7 days then increase to 1 tablet at bedtime 01/09/2017 02/12/2017 Inactive pravastatin 20 mg tablet RxNorm: 575032 Tablet(s) 1 TABLET(S) PO QD 11/29/2016 02/25/2017 Inactive clonazepam 1 mg tablet RxNorm: 566600 1 Tablet(s) PO BID replac es 0.5mg dose 11/23/2016 01/08/2017 Inactive pravastatin 20 mg tablet RxNorm: 577616 1 TABLET(S) PO QD 11/17/2016 11/28/2016 Inactive Ambien 5 mg tablet RxNorm: 570697 TAKE 1 TABLET BY MOUTH EVERY NIGHT AT BEDTIME 11/17/2016 12/14/2016 Inactive clonazepam 0.5 mg tablet RxNorm: 358764 TAKE 1 TABLET BY MOUTH TWICE DAILY 11/17/2016 11/22/2016 Inactive Plavix 75 mg tablet RxNorm: 127475 1 Tablet(s) PO QD 11/06/201604/09 Inactive [SAVINGS FOR NON-COVERED DRUGS -- BIN:00 3585, PCN: ASPROD1, Group: XXXXX, ID# [id number], Questions: . THIS IS NOT INSURANCE.] Plavix 75 mg tablet RxNorm: 808862 1 Tablet(s) PO QD 08/28/201611/05 Inactive [SAVINGS FOR NON-COVERED DRUGS -- BIN: 3585, PCN: ASPROD1, Group: XXXXX, ID# [id number], Questions: . THIS IS NOT INSURANCE.] Lidoderm 5 % topical patch RxNorm: 2299076 Application T OP 2 patches for 12hrs then off for 12hrs 08/28/2016 08/27/2016 Inactive clonazepam 0.5 mg tablet RxNorm: 693444 1 Tablet(s) PO BID 08/07/20 16 11/22/2016 Inactive pravastatin 20 mg tablet RxNorm: 167927 1 Tablet(s) PO QD 08/07/2016 11/04/2016 Inactive cyclobenzaprine 10 mg tablet RxNorm: 267066 1 Tablet(s) PO TID as needed for muscle spasm 08/07/2016 09/05/2016 Inactive [SAVINGS FOR NON -COVERED DRUGS -- BIN:266797, PCN: ASPROD1, Group: XXXXX, ID# [id number], Questions: . THIS IS NOT INSURANCE.] Plavix 75 mg tablet RxNorm: 512758 1 Tablet(s) PO QD 08/07/201608/27 Inactive [SAVINGS FOR NON-COVERED DRUGS -- BIN:00 3585, PCN: ASPROD1, Group: XXXXX, ID# [id number], Questions: . THIS IS NOT INSURANCE.] carvedilol 3.125 mg tablet RxNorm: 674737 1 Tablet(s) P O BID to replace 6.25mg dose 08/07/2016 02/02/2017 Inactive clonazepam 0.5 mg tablet RxNorm: 457527 1 Tablet(s) PO BID 07/04/2008/07/2016 Inactive Plavix 75 mg tablet RxNorm: 743230 1 TABLET(S) PO QD 06/20/201608/06 Inactive [SAVINGS FOR NON-COVERED DRUGS -- BIN:00 3585, PCN: ASPROD1, Group: XXXXX, ID# [id number], Questions: . THIS IS NOT INSURANCE.] clonazepam 0.5 mg tablet RxNorm: 531990 1 Tablet(s) PO BID 06/09/20 16 07/03/2016 Inactive pravastatin 20 mg tablet RxNorm: 888098 1 Tablet(s) PO QD 05/23/2016 08/06/2016 Inactive pravastatin 20 mg tablet RxNorm: 747391 1 Tablet(s) PO QD 05/23/2016 05/22/2016 Inactive carvedilol 3.125 mg tablet RxNorm: 458642 1 Tablet(s) P O BID to replace 6.25mg dose 05/10/2016 08/06/2016 Inactive carvedilol 3.125 mg tablet RxNorm: 171933 1 Tablet(s) P O BID to replace 6.25mg dose 05/10/2016 05/09/2016 Inactive clonazepam 0.5 mg tablet RxNorm: 304466 1 Tablet(s) PO BID 05/10/20 16 06/08/2016 Inactive carvedilol 6.25 mg tablet RxNorm: 309291 1 Tablet(s) PO QD 05/10/20 16 05/10/2016 Inactive simvastatin 40 mg tablet RxNorm: 184964 1 TABLET(S) PO QD 04/10/2016 05/09/2016 Inactive Medrol (Jose) 4 mg tablets in a dose pack RxNorm: 790599 Tablet(s) PO As Directed 01/13/2016 05/09/2016 Inactive cyclobenzaprine 10 mg tablet RxNorm: 355223 1 TABLET(S) PO TID NEEDED FOR SPASM 01/11/2016 03/10/2016 Inactive [SAVINGS FOR NON -COVERED DRUGS -- BIN:034110, PCN: ASPROD1, Group: XXXXX, ID# [id number], Questions: . THIS IS NOT INSURANCE.] Plavix 75 mg tablet RxNorm: 980533 1 Tablet(s) PO QD 12/30/201506/19 Inactive [SAVINGS FOR NON-COVERED DRUGS -- BIN: 3585, PCN: ASPROD1, Group: XXXXX, ID# [id number], Questions: . THIS IS NOT INSURANCE.] Ambien 5 mg tablet RxNorm: 174177 TAKE 1 TABLET BY MOUTH EVERY DAY AT BEDTIME 11/15/2015 11/17/2016 Inactive simvastatin 40 mg tablet RxNorm: 269043 1 Tablet(s) PO QD 10/11/2015 01/12/2019 Inactive simvastatin 40 mg tablet RxNorm: 784537 1 Tablet(s) PO QD 10/08/2015 10/10/2015 Inactive Ambien 5 mg tablet RxNorm: 990216 TAKE 1 TABLET BY MOUTH EVERY NIGHT AT BEDTIME 07/27/2015 11/15/2015 Inactive Plavix 75 mg tablet RxNorm: 653803 1 Tablet(s) PO QD 06/28/201512/29 Inactive [SAVINGS FOR NON-COVERED DRUGS -- BIN: 3585, PCN: ASPROD1, Group: XXXXX, ID# [id number], Questions: . THIS IS NOT INSURANCE.] Coreg 6.25 mg tablet RxNorm: 878865 1 TABLET(S) PO BID 04/19/2015 Inactive [SAVINGS FOR NON-COVERED DRUGS -- BIN:00 3585, PCN: ASPROD1, Group: XXXXX, ID# [id number], Questions: . THIS IS NOT INSURANCE.] simvastatin 40 mg tablet RxNorm: 307698 1 Tablet(s) PO QD 04/05/2015 04/04/2015 Inactive simvastatin 40 mg tablet RxNorm: 561202 1 Tablet(s) PO QD 04/05/2015 10/11/2015 Inactive Plavix 75 mg tablet RxNorm: 260528 1 TABLET(S) PO QD 03/22/201504/20 Inactive [SAVINGS FOR NON-COVERED DRUGS -- BIN:00 3585, PCN: ASPROD1, Group: XXXXX, ID# [id number], Questions: . THIS IS NOT INSURANCE.] Plavix 75 mg tablet RxNorm: 809306 1 Tablet(s) PO QD 03/22/201506/28 Inactive [SAVINGS FOR NON-COVERED DRUGS -- BIN:00 3585, PCN: ASPROD1, Group: XXXXX, ID# [id number], Questions: . THIS IS NOT INSURANCE.] Ambien 5 mg tablet RxNorm: 335827 1 Tablet(s) PO QHS 12/17/201407/28 Inactive [SAVINGS FOR NON-COVERED DRUGS -- BIN:00 3585, PCN: ASPROD1, Group: XXXXX, ID# XXXXXXX, Questions: . THIS IS NOT INSURANCE.] Coreg 6.25 mg tablet RxNorm: 386810 1 Tablet(s) PO BID 12/17/2014 Inactive [SAVINGS FOR NON-COVERED DRUGS -- BIN:00 3585, PCN: ASPROD1, Group: XXXXX, ID# [id number], Questions: . THIS IS NOT INSURANCE.] Plavix 75 mg tablet RxNorm: 220719 1 Tablet(s) PO QD 12/17/201403/16 Inactive [SAVINGS FOR NON-COVERED DRUGS -- BIN:00 3585, PCN: ASPROD1, Group: XXXXX, ID# XXXXXXX, Questions: . THIS IS NOT INSURANCE.] cyclobenzaprine 10 mg tablet RxNorm: 015937 1 Tablet(s) PO TID as needed for spasm 12/17/2014 03/16/2015 Inactive [SAVINGS FOR NON -COVERED DRUGS -- BIN:574187, PCN: ASPROD1, Group: XXXXX, ID# [id number], Questions: . THIS IS NOT INSURANCE.] Coreg 6.25 mg tablet RxNorm: 385996 1 Tablet(s) PO BID 10/21/201409/2014 Inactive [SAVINGS FOR NON-COVERED DRUGS -- BIN:00 3585, PCN: ASPROD1, Group: XXXXX, ID# XXXXXXX, Questions: . THIS IS NOT INSURANCE.] Plavix 75 mg tablet RxNorm: 334080 1 Tablet(s) PO QD 10/21/201412/16 Inactive [SAVINGS FOR NON-COVERED DRUGS -- BIN:00 3585, PCN: ASPROD1, Group: XXXXX, ID# XXXXXXX, Questions: . THIS IS NOT INSURANCE.] Plavix 75 mg tablet RxNorm: 505826 1 Tablet(s) PO QD Ne eds routine check up--last seen March 2012 09/21/2014 10/20/2014 Inactive [SAVINGS FOR UNINSURED PATIENTS -- BIN:684846, PCN: ASPROD1, Group: AME08, ID# [id number], Process claim through [employer], for questions: . THIS IS NOT INSURANCE.] Ambien 5 mg tablet RxNorm: 870711 1 Tablet(s) PO [facility] 09/21/201412/16 Inactive [SAVINGS FOR UNINSURED PATIENTS -- BIN:0 35385, PCN: ASPROD1, Group: AME08, ID# [id number], Process claim through [employer], for questions: . THIS IS NOT INSURANCE.] Coreg 6.25 mg tablet RxNorm: 356954 1 Tablet(s) PO BID 09/21/201411/2014 Inactive [SAVINGS FOR UNINSURED PATIENTS -- BIN:0 64543, PCN: ASPROD1, Group: AME08, ID# [id number], Process claim through [employer], for questions: . THIS IS NOT INSURANCE.] Plavix 75 mg tablet RxNorm: 973404 1 Tablet(s) PO QD Ne eds routine check up--last seen March 2012 08/04/2014 09/02/2014 Inactive [SAVINGS FOR UNINSURED PATIENTS -- BIN:339435, PCN: ASPROD1, Group: AME08, ID# [id number], Process claim through [employer], for questions: . THIS IS NOT INSURANCE.] Plavix 75 mg tablet RxNorm: 979407 1 Tablet(s) PO QD Ne eds routine check up--last seen March 2012 08/03/2014 08/03/2014 Inactive Protonix 40 mg tablet,delayed release RxNorm: 096549 1 Tablet(s ) PO QD 06/08/2014 02/17/2019 Inactive [SAVINGS FOR UNINSUR ED PATIENTS -- BIN:466735, PCN: ASPROD1, Group: AME08, ID# [id number], Process claim through [employer], for questions: . THIS IS NOT INSURANCE.] hydrocodone 10 mg-acetaminophen 325 mg tablet RxNorm: 420875 1 Tablet(s) PO BID as needed for pain 02/18/2014 03/31/2015 Inactive Coreg 6.25 mg tablet RxNorm: 435065 1 Tablet(s) PO BID 02/02/2014 Inactive Protonix 40 mg granules delayed-release packet RxNorm: 221081 1 Tablet(s) PO QD 01/13/2014 06/08/2014 Inactive Plavix 75 mg tablet RxNorm: 349991 1 Tablet(s) PO QD Ne eds routine check up--last seen March 2012 01/13/2014 08/02/2014 Inactive Plavix 75 mg tablet RxNorm: 748212 1 Tablet(s) PO QD Ne eds routine check up--last seen March 2012 12/09/2013 01/07/2014 Inactive Coreg 6.25 mg tablet RxNorm: 303384 1 Tablet(s) PO BID 12/09/2013 Inactive Cymbalta 60 mg capsule,delayed release RxNorm: 478651 1 Capsule (s) PO QD 10/31/2013 01/12/2014 Inactive Coreg 6.25 mg tablet RxNorm: 718846 1 Tablet(s) PO BID 10/31/2013 Inactive Plavix 75 mg tablet RxNorm: 003802 1 Tablet(s) PO QD Ne eds routine check up--last seen March 2012 10/31/2013 11/29/2013 Inactive Coreg 6.25 mg tablet RxNorm: 352037 1 Tablet(s) PO BID 10/31/2013 Inactive atorvastatin 40 mg tablet RxNorm: 788096 1 Tablet(s) PO QD 10/31/19 14 03/31/2015 Inactive Plavix 75 mg tablet RxNorm: 072578 1 Tablet(s) PO QD Ne eds routine check up--last seen March 2012 09/23/2013 10/30/2013 Inactive cyclobenzaprine 10 mg tablet RxNorm: 441718 1 Tablet(s) PO TID as needed for spasm 09/23/2013 No Stop Date Active cyclobenzaprine 10 mg tablet RxNorm: 047961 1 Tablet(s) PO TID as needed for spasm 07/04/2013 09/22/2013 Inactive atorvastatin 40 mg tablet RxNorm: 361036 1 Tablet(s) PO QD 06/23/20 13 10/30/2013 Inactive atorvastatin 40 mg tablet RxNorm: 919364 1 Tablet(s) PO QD 04/22/20 13 06/22/2013 Inactive Nucynta 50 mg tablet RxNorm: 302072 1-2 Tablet(s) PO Q6H as nee ded for pain 01/01/2013 01/12/2014 Inactive Ambien 5 mg tablet RxNorm: 338812 1 Tablet(s) PO QHS 10/16/201201/13 Inactive Plavix 75 mg tablet RxNorm: 342830 1 Tablet(s) PO QD 09/19/201209/13 Inactive Protonix 40 mg tablet,delayed release RxNorm: 360592 1 Tablet(s ) PO QD 09/19/2012 09/18/2012 Inactive simvastatin 40 mg tablet RxNorm: 246900 1 Tablet(s) PO QD 09/19/2012 02/23/2013 Inactive Protonix 40 mg tablet,delayed release RxNorm: 762721 1 Tablet(s ) PO QD 09/19/2012 09/13/2013 Inactive Ultram 50 mg tablet RxNorm: 678566 1-2 Tablet(s) PO QID as need ed for pain 09/19/2012 02/26/2017 Inactive propranolol 80 mg tablet RxNorm: 950741 1 Tablet(s) PO QHS 09/19/19 13 09/18/2012 Inactive Cymbalta 60 mg capsule,delayed release RxNorm: 123256 1 Capsule (s) PO QD 09/19/2012 09/18/2012 Inactive Cymbalta 60 mg capsule,delayed release RxNorm: 109647 1 Capsule (s) PO QD 09/19/2012 03/17/2013 Inactive propranolol 80 mg tablet RxNorm: 894058 1 Tablet(s) PO QHS 09/19/19 13 02/23/2013 Inactive hydrocodone-acetaminophen 10 mg-325 mg tablet RxNorm: 506532 2 1-2 Tablet(s) PO QID 07/25/2012 02/23/2013 Inactive Ambien 10 mg tablet RxNorm: 626504 1 Tablet(s) PO QHS as needed for sleep 07/10/2012 01/27/2013 Inactive propranolol 80 mg tablet RxNorm: 460741 1 Tablet(s) PO QHS 05/13/20 12 09/18/2012 Inactive hydrocodone-acetaminophen 10 mg-325 mg tablet RxNorm: 558560 2 1-2 Tablet(s) PO QID 05/02/2012 No Stop Date Active Restoril 15 mg Cap RxNorm: 251989 1-2 Capsule(s) PO QHS 05/02/2012 Inactive propranolol 80 mg tablet RxNorm: 763280 1 Tablet(s) PO QHS 05/02/20 12 05/12/2012 Inactive Chantix Starting Month Box 0.5 mg (11)-1 mg (42) Tabs in a Dose Pack RxNorm: 506327 Tablet(s) PO As Directed 04/01/2012 01/27/2013 Inactive simvastatin 40 mg tablet RxNorm: 841120 1 Tablet(s) PO QD 03/28/2012 09/18/2012 Inactive simvastatin 40 mg Tab RxNorm: 041492 1 Tablet(s) PO QD 03/22/201207/2012 Inactive Effient 10 mg Tab RxNorm: 548774 1 Tablet(s) PO QD 03/22/2012 012 Inactive Prilosec 40 mg Capsule, delayed release RxNorm: 366365 1 Capsul e(s) PO QD 03/22/2012 09/18/2012 Inactive Prilosec 40 mg Capsule, delayed release RxNorm: 508740 1 Capsul e(s) PO QD 03/19/2012 03/21/2012 Inactive Cymbalta 60 mg capsule,delayed release RxNorm: 972981 1 Capsule (s) PO QD 03/04/2012 08/30/2012 Inactive hydrocodone-acetaminophen 10 mg-325 mg Tab RxNorm: 0312412 1-2 T ablet(s) PO QID 01/23/2012 No Stop Date Active Cymbalta 60 mg Capsule, delayed release RxNorm: 797291 1 Capsul e(s) PO QD 01/23/2012 03/03/2012 Inactive Cipro 500 mg Tab RxNorm: 287357 1 Tablet(s) PO BID 12/20/2011 012 Inactive Cymbalta 60 mg Capsule, delayed release RxNorm: 271361 1 Capsul e(s) PO QD 12/13/2011 01/22/2012 Inactive nortriptyline 75 mg Cap RxNorm: 295868 1 Capsule(s) PO QHS 11/29/1904/02/2012 Inactive Cymbalta 60 mg Cap RxNorm: 484539 1 Capsule(s) PO QD 10/24/201112/11 Inactive propranolol 80 mg Tab RxNorm: 849368 1 Tablet(s) PO QHS 10/24/2011 Inactive hydrocodone-acetaminophen 10 mg-325 mg Tab RxNorm: 4036195 1-2 T ablet(s) PO QID 09/29/2011 No Stop Date Active hydrocodone-acetaminophen 10 mg-325 mg Tab RxNorm: 0674916 1-2 T ablet(s) PO QID 07/25/2011 No Stop Date Active hydrocodone-acetaminophen 10 mg-325 mg Tab RxNorm: 3973940 1-2 T ablet(s) PO QID 02/14/2011 No Stop Date Active Prilosec 40 mg Cap RxNorm: 659249 1 Capsule(s) PO 01/03/2011 04/28/20 19 Inactive nortriptyline 75 mg Cap RxNorm: 981982 1 Capsule(s) PO QHS 01/04/20 11 07/01/2011 Inactive Neurontin 600 mg Tab RxNorm: 259221 1 Tablet(s) PO QHS 12/08/201011/2011 Inactive hydrocodone-acetaminophen 5 mg-500 mg Tab RxNorm: 340651 2 Tablet(s) PO Q4-6H prn 10/20/2010 01/08/2011 Inactive Diltzac ER 240 mg Cap RxNorm: 967172 1 Capsule(s) PO QD 07/14/2010 Inactive Nortriptyline 75 mg Cap RxNorm: 656503 1 Capsule(s) PO QHS 05/09/20 10 01/12/2019 Inactive Neurontin 600 mg Tab RxNorm: 254382 1 Tablet(s) PO QD 03/17/201012/17 Inactive Nortriptyline 75 mg Cap RxNorm: 082058 1 Capsule(s) PO 01/12/2010 Inactive Nortriptyline 50 mg Cap RxNorm: 889704 1 Capsule(s) PO QHS 01/13/20 10 01/11/2010 Inactive Diltzac ER 240 mg Cap RxNorm: 412386 1 Capsule(s) PO QD 12/06/2009 Inactive aspirin 81 mg Tab RxNorm: 689542 1 Tablet(s) PO QD No Start Date Active Vitamin D3 2,000 unit tablet RxNorm: 539440 1 Tablet(s) PO QD No Star t Date Active Lyrica 75 mg capsule RxNorm: 151889 1 Capsule(s) PO QHS No Start Date Active xbvzaabfe-whbqwjxro-unxiqi complex no.233 oral RxNorm: oral No Start Date Active primidone 50 mg tablet RxNorm: 355715 2 Tablet(s) PO BID No Start Date Active Prilosec 40 mg Capsule, delayed release RxNorm: 514767 1 Capsul e(s) PO QD No Start Date 03/18/2012 Inactive Prilosec 20 mg Cap RxNorm: 207945 1 Capsule(s) PO QHS No Start Date 0 01/02/2011 Inactive primidone 50 mg tablet RxNorm: 546707 1/2 Tablet(s) PO QHS for 1week then go full tab if needed No Start Date 05/01/2017 Inactive ProAir HFA 90 mcg/actuation aerosol inhaler RxNorm: 775493 2 Puff(s) INH Q4H as needed No Start Date 10/29/2017 Inactive clonazepam 0.5 mg tablet RxNorm: 544469 1/2 Tablet(s) PO BID No Sta rt Date 02/12/2017 Inactive Pepcid AC 10 mg Tab RxNorm: 750028 1 Tablet(s) PO QAM No Start Date 0 02/19/2011 Inactive Coreg Oral RxNorm: Oral No Start Date 01/12/2014 Inactive primidone 50 mg tablet RxNorm: 182855 1/2 Tablet(s) PO QD for 7 days then increase to 1 tablet at bedtime No Start Date 01/08/2017 Inactive Medrol (Jose) 4 mg tablets in a dose pack RxNorm: 174426 Tablet(s) PO As Directed No Start Date 01/12/2016 Inactive Plavix 75 mg tablet RxNorm: 487116 1 Tablet(s) PO QD No Start Date Inactive cyclobenzaprine 10 mg tablet RxNorm: 917200 1 Tablet(s) PO TID as needed for spasm No Start Date 07/03/2013 Inactive Bevespi Aerosphere 9 mcg-4.8 mcg HFA aerosol inhaler RxNorm: 7893054 2 Puff(s) INH BID No Start Date 02/18/2019 Inactive tramadol 50 mg tablet RxNorm: 071627 1-2 Tablet(s) PO TID as ne eded for pain No Start Date 01/12/2019 Inactive clonazepam 1 mg tablet RxNorm: 933599 1 Tablet(s) PO QAM No Start D ate 09/18/2018 Inactive hydrocodone-acetaminophen 5 mg-500 mg Tab RxNorm: 091168 2 Tablet(s) PO Q4-6H prn No Start Date 10/19/2010 Inactive lisinopril 20 mg Tab RxNorm: 231384 1/2 Tablet(s) PO QD No Start Da te 03/12/2011 Inactive Protonix 40 mg tablet,delayed release RxNorm: 204726 1 Tablet(s ) PO QD No Start Date 06/07/2014 Inactive Lipitor Oral RxNorm: Oral No Start Date 01/12/2014 Inactive primidone 50 mg tablet RxNorm: 487448 2 Tablet(s) PO QAM and 1 tablet at HS No Start Date 02/17/2019 Inactive hydrocodone-acetaminophen 10 mg-325 mg Tab RxNorm: 9356233 1-2 T ablet(s) PO QID No Start Date 02/13/2011 Inactive Ultram 50 mg tablet RxNorm: 033051 1-2 Tablet(s) PO QID as need ed for pain No Start Date 09/18/2012 Inactive Effient 10 mg Tab RxNorm: 771813 1 Tablet(s) PO QD No Start Date 01/2012 Inactive Bevespi Aerosphere 9 mcg-4.8 mcg HFA aerosol inhaler RxNorm: 6863261 2 Puff(s) INH BID No Start Date 10/29/2017 Inactive Neurontin Oral RxNorm: Oral No Start Date 01/12/2010 Inactive primidone 50 mg tablet RxNorm: 564313 1 Tablet(s) PO QD No Start Da te 01/12/2019 Inactive Chantix Starting Month Box 0.5 mg (11)-1 mg (42) Tabs in a Dose Pack RxNorm: 249836 Tablet(s) PO No Start Date 03/31/2012 Inactive atenolol 25 mg Tab RxNorm: 940972 1 Tablet(s) PO QD No Start Date 02/2012 Inactive Neurontin 600 mg Tab RxNorm: 763339 1 Tablet(s) PO QD No Start Date 0 03/16/2010 Inactive Nucynta 50 mg tablet RxNorm: 729005 1-2 Tablet(s) PO Q6H as nee ded for pain No Start Date 12/31/2012 Inactive simvastatin 40 mg Tab RxNorm: 655353 1 Tablet(s) PO QD No Start Date 03/21/2012 Inactive Medication Administered No Medication Administered data Immunizations Vaccine Codes Date Status Influenza CVX: 135 07/04/2017 Complete Results Observation Observation Code Item Item Code Result Date S [facility] Location COMPLETE BLOOD COUNT 9939039 WBC 4.9 10e9/L 09/04/20 18 Unknown COMPLETE BLOOD COUNT [id number] RBC 4.42 10e12/L 2017 Unknown COMPLETE BLOOD COUNT 1907476 HEMOGLOBIN 13.4 g/dL 09/04/20 18 Unknown COMPLETE BLOOD COUNT [id number] HEMATOCRIT 40.5 % 09/04/20 18 Unknown COMPLETE BLOOD COUNT 2134647 MCV 91.6 fL 8 Unknown COMPLETE BLOOD COUNT 3490647 MCH 30.3 pg 8 Unknown COMPLETE BLOOD COUNT 9984408 MCHC 33.1 g/dL 8 Unknown COMPLETE BLOOD COUNT 7470458 PLATELET COUNT 224 10e9/L Unknown COMPLETE BLOOD COUNT 7482024 Mean Plt Volume 9.9 fL Unknown COMPLETE BLOOD COUNT 1859233 Neut Auto 60.8 % 8 Unknown COMPLETE BLOOD COUNT 8459941 Lymph Auto 26.8 % 09/04/20 18 Unknown COMPLETE BLOOD COUNT 3812634 [place] Auto 10.4 % 8 Unknown COMPLETE BLOOD COUNT 9194541 RDW 12.8 % 8 Unknown COMPLETE BLOOD COUNT 0200117 Eos Auto 1.6 % 8 Unknown COMPLETE BLOOD COUNT 8157892 Baso Auto 0.4 % 8 Unknown COMPLETE BLOOD COUNT 1926823 Neutrophil Abs 2.98 10e9/L Unknown COMPLETE BLOOD COUNT 3499455 Lymphocyte Abs 1.31 10e9/L Unknown COMPLETE BLOOD COUNT [id number] Monocyte Abs 0.51 10e9/L 08/17 Unknown COMPLETE BLOOD COUNT 8531346 Eosinophil Abs 0.08 10e9/L Unknown COMPLETE BLOOD COUNT 9701871 RDW-SD 41.6 fL 8 Unknown COMPLETE BLOOD COUNT 0395462 Basophil Abs 0.02 10e9/L 08/17 Unknown COMPREHENSIVE METABOLIC 22457 AST 16 U/L 2017 Unknown COMPREHENSIVE METABOLIC 59847 ALT 8 U/L 2017 Unknown COMPREHENSIVE METABOLIC 70212 BUN 12 mg/dL 2017 Unknown COMPREHENSIVE METABOLIC 38721 ALBUMIN 4.4 g/dL 2017 Unknown COMPREHENSIVE METABOLIC 91732 CHLORIDE 107 mmol/L 09/04 Unknown COMPREHENSIVE METABOLIC 56718 Bili Total 1.0 mg/dL 09/04 Unknown COMPREHENSIVE METABOLIC 50761 ALK PHOS 58 U/L 2017 Unknown COMPREHENSIVE METABOLIC 47961 SODIUM 142 mmol/L 09/04 Unknown COMPREHENSIVE METABOLIC 80940 CREATININE 0.97 mg/dL 08/17 Unknown COMPREHENSIVE METABOLIC 02747 CALCIUM 9.2 mg/dL 2017 Unknown COMPREHENSIVE METABOLIC 81205 POTASSIUM 4.6 mmol/L 09/04 Unknown COMPREHENSIVE METABOLIC 21856 Total Protein 6.5 g/dL Unknown COMPREHENSIVE METABOLIC 93299 Glucose 96 mg/dL 2017 Unknown COMPREHENSIVE METABOLIC 72585 Bicarbonate 29 mmol/L 08/17 Unknown COMPREHENSIVE METABOLIC 71336 AGAP 6 mmol/L 2017 Unknown LIPID GROUP 12882 Cholesterol 182 mg/dL 09/04/2018 Unkno wn LIPID GROUP 43190 Triglyceride 84 mg/dL 09/04/2018 Unkn own LIPID GROUP 19063 HDL CHOLESTEROL 76 mg/dL 09/04/2018 U nknown LIPID GROUP 84458 Chol/HDL Ratio 2.39 ratio 09/04/2018 U nknown LIPID GROUP 45830 NON-HDL Chol 106 mg/dL 09/04/2018 Unkn own LIPID GROUP 30869 LDL Cholesterol 89 mg/dL 09/04/2018 U nknown GFR CALC 3479951 GFR Non Afr Amr >60 mL/min 09/04/2018 Un known GFR CALC 4563606 GFR Afr Amr >60 mL/min 09/04/2018 Unknow n THYROID STIMULATING HORMONE 72159 TSH 0.713 uIU/mL 09/04/2018 Unknown PSA EQUIMOLAR BARBIE 00823 PSA Total 0.66 ng/mL 8 Unknown A FOOD C P [id number] [place] Cl Class 0 11/17/2017 Unknown A FOOD C P 8882440 [place] Ct <0.35 kU/L 11/17/2017 Unknow n A FOOD C P [id number] [place] Cl Class 0 11/17/2017 Unkn own A FOOD C P [id number] [place] [facility] <0.35 kU/L 11/17/2017 Unk nown A FOOD C P [id number] Egg White Cl Class 0 11/17/2017 Unkno wn A FOOD C P 1697478 Egg White Ct <0.35 kU/L 11/17/2017 Unkn own A FOOD C P 0172581 Egg Yolk Cl Class 0 11/17/2017 Unknow n A FOOD C P 1811809 Egg Yolk Ct <0.35 kU/L 11/17/2017 Unkno wn A FOOD C P 1885866 Cow Milk Cl Class 0 11/17/2017 Unknow n A FOOD C P 5012978 Cow Milk Ct <0.35 kU/L 11/17/2017 Unkno wn A FOOD C P 9192079 Peanut Cl Class 0 11/17/2017 Unknown A FOOD C P 2434497 Peanut Ct <0.35 kU/L 11/17/2017 Unknown A FOOD C P 6262773 Shrimp Cl Class 0 11/17/2017 Unknown A FOOD C P 1616451 Shrimp Ct <0.35 kU/L 11/17/2017 Unknown A FOOD C P 9078944 [place] Cl Class 0 11/17/2017 Unknown A FOOD C P 2342176 [place] Ct <0.35 kU/L 11/17/2017 Unknow n A FOOD C P 6247419 Wheat Cl Class 0 11/17/2017 Unknown A FOOD C P 4964064 Wheat Ct <0.35 kU/L 11/17/2017 Unknown A FOOD C P 8980514 Potato Cl Class 0 11/17/2017 Unknown A FOOD C P 9556623 Potato Ct <0.35 kU/L 11/17/2017 Unknown A FOOD C P 3371916 Beef Cl Class 2 11/17/2017 Unknown A FOOD C P 1985405 Beef Ct 0.88 kU/L 11/17/2017 Unknown A FOOD C P 9953451 [place] Cl Class 0 11/17/2017 Unknown A FOOD C P 3821745 [place] Ct <0.35 kU/L 11/17/2017 Unknown A FOOD C P 2186143 Pork Cl Class 0 11/17/2017 Unknown A FOOD C P 1790360 Pork Ct <0.35 kU/L 11/17/2017 Unknown A FOOD C P 9651529 [place] Cl Class 0 11/17/2017 Unknown A FOOD C P 9794842 [place] Ct <0.35 kU/L 11/17/2017 Unknown A FOOD C P 3593410 [place] Cl Class 0 11/17/2017 Unkn own A FOOD C P [id number] [place] Ct <0.35 kU/L 11/17/2017 Unk nown A FOOD C P 7650193 [place] Cl Class 0 11/17/2017 Unknown A FOOD C P 8289159 [place] Ct <0.35 kU/L 11/17/2017 Unknown A FOOD C P 8895047 [place] Cl Class 0 11/17/2017 Unknown A FOOD C P 4371962 [place] Ct <0.35 kU/L 11/17/2017 Unknown A FOOD C P [id number] [place] Class 0 11/17/2017 Unknown A FOOD C P [id number] [place] <0.35 kU/L 11/17/2017 Unknown A FOOD C P 8152145 [place] Cl Class 0 11/17/2017 Unknown A FOOD C P 3889070 [place] Ct <0.35 kU/L 11/17/2017 Unknown A FOOD C P 6150217 Oat Cl Class 0 11/17/2017 Unknown A FOOD C P 1947011 Oat Ct <0.35 kU/L 11/17/2017 Unknown A FOOD C P 6936506 [place] Cl Class 0 11/17/2017 Unknown A FOOD C P 9302172 [place] Ct <0.35 kU/L 11/17/2017 Unknown A FOOD C P [id number] [place] Meat CL Class 0 11/17/2017 Un known A FOOD C P [id number] Chicken Meat Ct <0.35 kU/L 11/17/2017 U nknown A FOOD C P 7052811 [place] Cl Class 0 11/17/2017 Unknown A FOOD C P 1948608 [place] Ct <0.35 kU/L 11/17/2017 Unknown A FOOD C P 3991331 [place] Meat Cl Class 0 11/17/2017 Unkn own A FOOD C P [id number] [place] Meat Ct <0.35 kU/L 11/17/2017 Unk nown A NUTS PNL 5988214 Peanut Cl Class 0 11/17/2017 Unknown A NUTS PNL 0482339 Peanut Ct <0.35 kU/L 11/17/2017 Unknown A NUTS PNL 4434843 [employer] Meat Cl Class 0 11/17/2017 Unk nown A NUTS PNL 0030148 [employer] [facility] Ct <0.35 kU/L 11/17/2017 Un known A NUTS PNL 0435736 [place] Meat Cl Class 0 11/17/2017 Unkn own A NUTS PNL 6748131 [place] Ct <0.35 kU/L 11/17/2017 Unk nown A NUTS PNL 8982866 [place] Cl Class 0 11/17/2017 Unknown A NUTS PNL 6595761 [place] Ct <0.35 kU/L 11/17/2017 Unknown A NUTS PNL 3162443 [place] Cl Class 0 11/17/2017 Unknow n A NUTS PNL 4806249 [place] Ct <0.35 kU/L 11/17/2017 Unkno wn A NUTS PNL 9904788 [place] Cl Class 0 11/17/2017 Unkno wn A NUTS PNL 5601757 [place] Ct <0.35 kU/L 11/17/2017 Unkn own A NUTS PNL 0150986 [place] Cl Class 0 11/17/2017 Unknown A NUTS PNL 6711400 [place] Ct <0.35 kU/L 11/17/2017 Unknown A NUTS PNL 2749561 [place] Cl Class 0 11/17/2017 Unkno wn A NUTS PNL [id number] [place] Ct <0.35 kU/L 11/17/2017 Unkn own A NUTS PNL [id number] Allergen Interp See Note 11/17/2017 Un known A FRT/VG P [id number] [place] Cl Class 0 11/17/2017 Unkn own A FRT/VG P [id number] [place] Ct <0.35 kU/L 11/17/2017 Unk nown A FRT/VG P [id number] [place] Cl Class 0 11/17/2017 Unknown A FRT/VG P 3592805 [place] Ct <0.35 kU/L 11/17/2017 Unknown A FRT/VG P 0756176 [place] Cl Class 0 11/17/2017 Unkn own A FRT/VG P 1987707 [place] Ct <0.35 kU/L 11/17/2017 Unk nown A FRT/VG P 4114902 [place] Cl Class 0 11/17/2017 Unknown A FRT/VG P 9876003 [place] Ct <0.35 kU/L 11/17/2017 Unknown A FRT/VG P [id number] [place] Cl Class 0 11/17/2017 Unknown A FRT/VG P 7663127 [place] Ct <0.35 kU/L 11/17/2017 Unknown A FRT/VG P 7512614 [place] Cl Class 1 11/17/2017 Unknown A FRT/VG P [id number] [place] Ct 0.48 kU/L 11/17/2017 Unknown A FRT/VG P 4022901 [place] Cl Class 0 11/17/2017 Unk nown A FRT/VG P 5352711 [place] [address] <0.35 kU/L 11/17/2017 Un known A FRT/VG P 9074351 [place] Fruit Cl Class 0 11/17/2017 Unk nown A FRT/VG P [id number] [place] Ct <0.35 kU/L 11/17/2017 Un known A FRT/VG P 2860134 [place] Cl Class 0 11/17/2017 Unknown A FRT/VG P [id number] [place] Ct <0.35 kU/L 11/17/2017 Unknown A FRT/VG P 6824249 [place] Cl Class 0 11/17/2017 Unknown A FRT/VG P 9846527 [place] Ct <0.35 kU/L 11/17/2017 Unknown A FRT/VG P 6957231 [place] Fruit Cl Class 0 11/17/2017 Unkn own A FRT/VG P 9612227 [place] Ct <0.35 kU/L 11/17/2017 Unk nown A FRT/VG P 1439702 [place] Cl Class 0 11/17/2017 Unkn own A FRT/VG P 3434126 Swt [place] Ct <0.35 kU/L 11/17/2017 Unk nown THYROID STIMULATING HORMONE 07152 TSH 1.371 uIU/mL 09/03/2017 Unknown FREE T4 68576 T4 Free 1.26 ng/dL 09/03/2017 Unknown ASSAY TRIIODOTHYRONINE (T3) 21028 T3 Total 0.9 ng/mL Unknown COMPLETE BLOOD COUNT 4429953 WBC 5.9 10e9/L 07/31/20 17 Unknown COMPLETE BLOOD COUNT 1715000 RBC 4.64 10e12/L 2016 Unknown COMPLETE BLOOD COUNT 6394767 HEMOGLOBIN 14.2 g/dL 07/31/20 17 Unknown COMPLETE BLOOD COUNT 7757781 HEMATOCRIT 42.1 % 07/31/20 17 Unknown COMPLETE BLOOD COUNT 9460366 MCV 90.7 fL 7 Unknown COMPLETE BLOOD COUNT 4136706 MCH 30.6 pg 7 Unknown COMPLETE BLOOD COUNT 8436982 MCHC 33.7 g/dL 7 Unknown COMPLETE BLOOD COUNT 2659404 PLATELET COUNT 195 10e9/L Unknown COMPLETE BLOOD COUNT 0854925 Mean Plt Volume 10.0 fL Unknown COMPLETE BLOOD COUNT 2266010 Neut Auto 47.5 % 7 Unknown COMPLETE BLOOD COUNT 1505899 Lymph Auto 37.4 % 07/31/20 17 Unknown COMPLETE BLOOD COUNT 7006988 [place] Auto 11.7 % 7 Unknown COMPLETE BLOOD COUNT 2332906 Eos Auto 3.2 % 7 Unknown COMPLETE BLOOD COUNT 8187980 RDW 12.8 % 7 Unknown COMPLETE BLOOD COUNT 7951449 Baso Auto 0.2 % 7 Unknown COMPLETE BLOOD COUNT 5357882 Neutrophil Abs 2.80 10e9/L Unknown COMPLETE BLOOD COUNT 0288499 Lymphocyte Abs 2.21 10e9/L Unknown COMPLETE BLOOD COUNT 1354361 Monocyte Abs 0.69 10e9/L 07/18 Unknown COMPLETE BLOOD COUNT 0969491 Eosinophil Abs 0.19 10e9/L Unknown COMPLETE BLOOD COUNT 1442152 RDW-SD 41.6 fL 7 Unknown COMPLETE BLOOD COUNT 7558161 Basophil Abs 0.01 10e9/L 07/18 Unknown LIPID GROUP 62887 Cholesterol 186 mg/dL 07/31/2017 Unkno wn LIPID GROUP 47626 Triglyceride 129 mg/dL 07/31/2017 Unkn own LIPID GROUP 49366 HDL CHOLESTEROL 79 mg/dL 07/31/2017 U nknown LIPID GROUP 55765 Chol/HDL Ratio 2.35 ratio 07/31/2017 U nknown LIPID GROUP 51205 NON-HDL Chol 107 mg/dL 07/31/2017 Unkn own LIPID GROUP 82907 LDL Cholesterol 81 mg/dL 07/31/2017 U nknown GFR CALC 5295282 GFR Non Afr Amr >60 mL/min 07/31/2017 Un known GFR CALC 9831612 GFR Afr Amr >60 mL/min 07/31/2017 Unknow n COMPREHENSIVE METABOLIC 39783 AST 19 U/L 2016 Unknown COMPREHENSIVE METABOLIC 58746 ALT 12 U/L 2016 Unknown COMPREHENSIVE METABOLIC 36675 BUN 15 mg/dL 2016 Unknown COMPREHENSIVE METABOLIC 65950 ALBUMIN 4.4 g/dL 2016 Unknown COMPREHENSIVE METABOLIC 94244 CHLORIDE 102 mmol/L 07/31 Unknown COMPREHENSIVE METABOLIC 68825 Bili Total 0.9 mg/dL 07/31 Unknown COMPREHENSIVE METABOLIC 80510 ALK PHOS 53 U/L 2016 Unknown COMPREHENSIVE METABOLIC 87332 SODIUM 138 mmol/L 07/31 Unknown COMPREHENSIVE METABOLIC 79757 CREATININE 1.06 mg/dL 07/18 Unknown COMPREHENSIVE METABOLIC 40612 CALCIUM 9.3 mg/dL 2016 Unknown COMPREHENSIVE METABOLIC 47905 POTASSIUM 4.0 mmol/L 07/31 Unknown COMPREHENSIVE METABOLIC 42856 Total Protein 6.8 g/dL Unknown COMPREHENSIVE METABOLIC 34877 Glucose 86 mg/dL 2016 Unknown COMPREHENSIVE METABOLIC 35341 Bicarbonate 28 mmol/L 07/18 Unknown COMPREHENSIVE METABOLIC 55931 AGAP 8 mmol/L 2016 Unknown COMPREHENSIVE METABOLIC 79271 AST 18 U/L 2015 Unknown COMPREHENSIVE METABOLIC 46667 ALT 9 U/L 2015 Unknown COMPREHENSIVE METABOLIC 32485 BUN 11 mg/dL 2015 Unknown COMPREHENSIVE METABOLIC 04634 ALBUMIN 4.2 g/dL 2015 Unknown COMPREHENSIVE METABOLIC 21593 CHLORIDE 104 mmol/L 05/19 Unknown COMPREHENSIVE METABOLIC 95251 Bili Total 1.2 mg/dL 05/19 Unknown COMPREHENSIVE METABOLIC 26576 ALK PHOS 54 U/L 2015 Unknown COMPREHENSIVE METABOLIC 97793 SODIUM 140 mmol/L 05/19 Unknown COMPREHENSIVE METABOLIC 13310 CREATININE 1.03 mg/dL 10/2015 Unknown COMPREHENSIVE METABOLIC 21761 CALCIUM 9.3 mg/dL 2015 Unknown COMPREHENSIVE METABOLIC 50247 POTASSIUM 4.9 mmol/L 05/19 Unknown COMPREHENSIVE METABOLIC 89897 Total Protein 6.7 g/dL Unknown COMPREHENSIVE METABOLIC 57704 Glucose 92 mg/dL 2015 Unknown COMPREHENSIVE METABOLIC 40864 Bicarbonate 28 mmol/L 10/2015 Unknown COMPREHENSIVE METABOLIC 44011 AGAP 8 mmol/L 2015 Unknown THYROID STIMULATING HORMONE 08417 TSH 1.545 uIU/mL 05/19/2016 Unknown GFR CALC 9569111 GFR Non Afr Amr >60 mL/min 05/19/2016 Un known GFR CALC 1279317 GFR Afr Amr >60 mL/min 05/19/2016 Unknow n VITAMIN B 12 77355 VITAMIN B12 298 pg/mL 05/19/2016 Unkn own COMPLETE BLOOD COUNT 4354644 WBC 5.2 10e9/L 05/19/20 16 Unknown COMPLETE BLOOD COUNT 6214940 RBC 4.34 10e12/L 2015 Unknown COMPLETE BLOOD COUNT 9157854 HEMOGLOBIN 12.9 g/dL 05/19/20 16 Unknown COMPLETE BLOOD COUNT 3218885 HEMATOCRIT 38.9 % 05/19/20 16 Unknown COMPLETE BLOOD COUNT 5051718 MCV 89.6 fL 6 Unknown COMPLETE BLOOD COUNT 0534121 MCH 29.7 pg 6 Unknown COMPLETE BLOOD COUNT 2242545 MCHC 33.2 g/dL 6 Unknown COMPLETE BLOOD COUNT 9529400 PLATELET COUNT 200 10e9/L 10/2015 Unknown COMPLETE BLOOD COUNT 8755239 Mean Plt Volume 10.1 fL 10/2015 Unknown COMPLETE BLOOD COUNT 8629096 Neut Auto 45.4 % 6 Unknown COMPLETE BLOOD COUNT 2404484 Lymph Auto 35.6 % 05/19/20 16 Unknown COMPLETE BLOOD COUNT 7759680 [place] Auto 11.9 % 6 Unknown COMPLETE BLOOD COUNT 2052091 RDW 12.7 % 6 Unknown COMPLETE BLOOD COUNT 9133806 Eos Auto 6.7 % 6 Unknown COMPLETE BLOOD COUNT 2268729 Baso Auto 0.4 % 6 Unknown COMPLETE BLOOD COUNT 1465905 Neutrophil Abs 2.36 10e9/L Unknown COMPLETE BLOOD COUNT 2512076 Lymphocyte Abs 1.85 10e9/L Unknown COMPLETE BLOOD COUNT 6954012 Monocyte Abs 0.62 10e9/L 10/2015 Unknown COMPLETE BLOOD COUNT 7263374 Eosinophil Abs 0.35 10e9/L Unknown COMPLETE BLOOD COUNT 7168367 RDW-SD 40.6 fL 6 Unknown COMPLETE BLOOD COUNT 6004201 Basophil Abs 0.02 10e9/L 10/2015 Unknown LIPID GROUP 77509 Cholesterol 197 mg/dL 05/19/2016 Unkno wn LIPID GROUP 41430 Triglyceride 92 mg/dL 05/19/2016 Unkn own LIPID GROUP 62505 HDL CHOLESTEROL 58 mg/dL 05/19/2016 U nknown LIPID GROUP 95552 Chol/HDL Ratio 3.40 ratio 05/19/2016 U nknown LIPID GROUP 31462 NON-HDL Chol 139 mg/dL 05/19/2016 Unkn own LIPID GROUP 17409 LDL Cholesterol 121 mg/dL 05/19/2016 U nknown FREE T4 36006 T4 Free 1.19 ng/dL 05/19/2016 Unknown COMPREHENSIVE METABOLIC 27483 AST 19 U/L 2014 Unknown COMPREHENSIVE METABOLIC 75790 ALT 10 IU/L 2014 Unknown COMPREHENSIVE METABOLIC 05477 BUN 20 MG/DL 2014 Unknown COMPREHENSIVE METABOLIC 73177 ALBUMIN 4.4 GM/DL 2014 Unknown COMPREHENSIVE METABOLIC 82569 CHLORIDE 104 MMOL/L 04/05 Unknown COMPREHENSIVE METABOLIC 24557 BILI TOT 2.2 MG/DL 2014 Unknown COMPREHENSIVE METABOLIC 95291 ALK PHOS 55 U/L 2014 Unknown COMPREHENSIVE METABOLIC 64517 SODIUM 138 MMOL/L 04/05 Unknown COMPREHENSIVE METABOLIC 95888 CREATININE 1.04 MG/DL 03/18 Unknown COMPREHENSIVE METABOLIC 95275 CALCIUM 9.3 MG/DL 2014 Unknown COMPREHENSIVE METABOLIC 97726 POTASSIUM 4.5 MMOL/L 04/05 Unknown COMPREHENSIVE METABOLIC 16232 PROT TOT 6.7 GM/DL 2014 Unknown COMPREHENSIVE METABOLIC 56861 Glucose 77 MG/DL 2014 Unknown COMPREHENSIVE METABOLIC 40853 BICARB 25 MMOL/L 2014 Unknown COMPREHENSIVE METABOLIC 09608 ANION GAP 9 MEQ/L 2014 Unknown GFR CALC 2592300 GFR AA >60 ML/MIN 04/05/2015 Unknown GFR CALC 2553713 GFR NON-AA >60 ML/MIN 04/05/2015 Unknown LIPID GROUP 00384 HDL TEST 60 MG/DL 04/05/2015 Unknown LIPID GROUP 69770 TRIG 70 MG/DL 04/05/2015 Unknown LIPID GROUP 58295 TEST LDL 137 MG/DL 04/05/2015 Unknown LIPID GROUP 79013 CHOL 211 MG/DL 04/05/2015 Unknown LIPID GROUP 75695 RCHOL/HDL 3.52 RATIO 04/05/2015 Unknow n LIPID GROUP 85545 NON-HDL CH 151 MG/DL 04/05/2015 Unknow n COMPLETE BLOOD COUNT 6909210 WBC 5.3 10e9/L 04/05/20 15 Unknown COMPLETE BLOOD COUNT 8465879 RBC 4.42 10e12/L 2014 Unknown COMPLETE BLOOD COUNT 0134239 HGB 13.4 g/dL 5 Unknown COMPLETE BLOOD COUNT 1418940 HCT DET 39.6 % 5 Unknown COMPLETE BLOOD COUNT 2931681 MCV 89.6 fL 5 Unknown COMPLETE BLOOD COUNT 2996683 MCH 30.3 pg 5 Unknown COMPLETE BLOOD COUNT 6309270 MCHC 33.8 g/dL 5 Unknown COMPLETE BLOOD COUNT 7505728 PLT 201 10e9/L 04/05/20 15 Unknown COMPLETE BLOOD COUNT 1601502 MPV 10.3 fL 5 Unknown COMPLETE BLOOD COUNT 1021242 LUPE % 56.4 % 5 Unknown COMPLETE BLOOD COUNT 3591805 LY % 24.8 % 5 Unknown COMPLETE BLOOD COUNT 0532599 MON % 12.8 % 5 Unknown COMPLETE BLOOD COUNT 5773035 EOS % 5.4 % 5 Unknown COMPLETE BLOOD COUNT 2602665 BASO % 0.6 % 5 Unknown COMPLETE BLOOD COUNT 2858404 RDW 13.2 % 5 Unknown COMPLETE BLOOD COUNT 9624980 ABS LUPE 2.99 10e9/L 015 Unknown COMPLETE BLOOD COUNT 2932690 ABS LYMPH 1.31 10e9/L 015 Unknown COMPLETE BLOOD COUNT 9207714 ABS MONO 0.68 10e9/L 015 Unknown COMPLETE BLOOD COUNT 3581249 ABS EOS 0.29 10e9/L 015 Unknown COMPLETE BLOOD COUNT 9182055 ABS BASO 0.03 10e9/L 015 Unknown COMPLETE BLOOD COUNT 7889658 RDW-SD 42.3 fL 5 Unknown LIPID GROUP 42582 HDL TEST 51 MG/DL 07/19/2012 Unknown LIPID GROUP 09807 TRIG 129 MG/DL 07/19/2012 Unknown LIPID GROUP 21114 TEST LDL 98 MG/DL 07/19/2012 Unknown LIPID GROUP 98202 CHOL 175 MG/DL 07/19/2012 Unknown LIPID GROUP 52075 RCHOL/HDL 3.43 RATIO 07/19/2012 Unknow n COMPREHENSIVE METABOLIC 25162 AST 18 U/L 2011 Unknown COMPREHENSIVE METABOLIC 94751 ALT 12 IU/L 2011 Unknown COMPREHENSIVE METABOLIC 59395 BUN 10 MG/DL 2011 Unknown COMPREHENSIVE METABOLIC 36007 ALBUMIN 4.1 GM/DL 2011 Unknown COMPREHENSIVE METABOLIC 96153 CHLORIDE 103 MMOL/L 07/19 Unknown COMPREHENSIVE METABOLIC 35838 BILI TOT 0.9 MG/DL 2011 Unknown COMPREHENSIVE METABOLIC 77090 ALK PHOS 62 U/L 2011 Unknown COMPREHENSIVE METABOLIC 76010 SODIUM 138 MMOL/L 07/19 Unknown COMPREHENSIVE METABOLIC 79024 CREATININE 1.08 MG/DL 10/2011 Unknown COMPREHENSIVE METABOLIC 62246 CALCIUM 9.1 MG/DL 2011 Unknown COMPREHENSIVE METABOLIC 52031 POTASSIUM 4.2 MMOL/L 07/19 Unknown COMPREHENSIVE METABOLIC 15134 PROT TOT 6.7 GM/DL 2011 Unknown COMPREHENSIVE METABOLIC 32044 Glucose 101 MG/DL 2011 Unknown COMPREHENSIVE METABOLIC 70274 BICARB 27 MMOL/L 2011 Unknown COMPREHENSIVE METABOLIC 90155 ANION GAP 8 MEQ/L 2011 Unknown GFR CALC 0628119 GFR AA >60 ML/MIN 07/19/2012 Unknown GFR CALC 3930926 GFR NON-AA >60 ML/MIN 07/19/2012 Unknown Procedures Procedure Codes Date THER/PROPH/DIAG INJ SC/IM CPT-4: 70566 01/13/2019 TRIAMCINOLONE ACET INJ NOS CPT-4: J3301 01/13/2019 DEXAMETHASONE SODIUM PHOS CPT-4: J1100 01/13/2019 ROUTINE VENIPUNCTURE CPT-4: 99412 09/04/2018 COMPREHEN METABOLIC PANEL CPT-4: 26220 09/04/2018 COMPLETE CBC W/AUTO DIFF WBC CPT-4: 13916 09/04/2018 LIPID PANEL CPT-4: 37749 09/04/2018 ASSAY OF PSA TOTAL CPT-4: 14436 09/04/2018 ASSAY THYROID STIM HORMONE CPT-4: 92186 09/04/2018 URINALYSIS NONAUTO W/O SCOPE CPT-4: 64313 05/15/2018 ROUTINE VENIPUNCTURE CPT-4: 91800 11/16/2017 A FRT/VG P CPT-4: 2635047 11/16/2017 A FOOD C P CPT-4: 6782693 11/16/2017 A NUTS PNL CPT-4: 1331152 11/16/2017 THER/PROPH/DIAG INJ SC/IM CPT-4: 05431 11/06/2017 TRIAMCINOLONE ACET INJ NOS CPT-4: J3301 11/06/2017 DEXAMETHASONE SODIUM PHOS CPT-4: J1100 11/06/2017 ROUTINE VENIPUNCTURE CPT-4: 83781 09/03/2017 ASSAY OF FREE THYROXINE CPT-4: 89644 09/03/2017 ASSAY THYROID STIM HORMONE CPT-4: 44875 09/03/2017 ASSAY TRIIODOTHYRONINE (T3) CPT-4: 74858 09/03/2017 ROUTINE VENIPUNCTURE CPT-4: 69842 07/31/2017 COMPREHEN METABOLIC PANEL CPT-4: 18999 07/31/2017 COMPLETE CBC W/AUTO DIFF WBC CPT-4: 62333 07/31/2017 LIPID PANEL CPT-4: 03080 07/31/2017 FLU VACC PRSV FREE INC ANTIG 65 AND OLDER CPT-4: 53121 07/04/2017 ADMIN INFLUENZA VIRUS VAC CPT-4: G0008 07/04/2017 ROUTINE VENIPUNCTURE CPT-4: 52272 02/26/2017 ASSAY THYROID STIM HORMONE CPT-4: 66372 02/26/2017 COMPREHEN METABOLIC PANEL CPT-4: 40794 02/26/2017 COMPLETE CBC W/AUTO DIFF WBC CPT-4: 90978 02/26/2017 LIPID PANEL CPT-4: 51375 02/26/2017 ASSAY OF PSA TOTAL CPT-4: 63054 02/26/2017 FLUZONE, 5ML (Medicare) CPT-4: Q2038 06/28/2016 ADMIN INFLUENZA VIRUS VAC CPT-4: G0008 06/28/2016 ROUTINE VENIPUNCTURE CPT-4: 09379 05/19/2016 ASSAY OF FREE THYROXINE CPT-4: 58379 05/19/2016 ASSAY THYROID STIM HORMONE CPT-4: 08094 05/19/2016 COMPREHEN METABOLIC PANEL CPT-4: 47589 05/19/2016 COMPLETE CBC W/AUTO DIFF WBC CPT-4: 61720 05/19/2016 LIPID PANEL CPT-4: 11213 05/19/2016 VITAMIN B-12 CPT-4: 94275 05/19/2016 PPPS, initial visit CPT-4: G0438 05/10/2016 ROUTINE VENIPUNCTURE CPT-4: 37077 04/05/2015 ASSAY THYROID STIM HORMONE CPT-4: 55965 04/05/2015 COMPREHEN METABOLIC PANEL CPT-4: 59879 04/05/2015 COMPLETE CBC W/AUTO DIFF WBC CPT-4: 39636 04/05/2015 LIPID PANEL CPT-4: 14631 04/05/2015 ASSAY OF PSA TOTAL CPT-4: 04073 04/05/2015 ROUTINE VENIPUNCTURE CPT-4: 80904 07/19/2012 COMPREHEN METABOLIC PANEL CPT-4: 86404 07/19/2012 LIPID PANEL CPT-4: 47225 07/19/2012 ELECTROCARDIOGRAM COMPLETE CPT-4: 49645 03/22/2012 Vital Signs Date Vital 09/24/2019 Blood Pressure 1: 125/72 Code: 8480-6 BMI: 19.8 Code: 65651-0 Heart Rate 1: 88 bpm Height: 5'11" [...] 1: 102/60 Code: 8480-6 BMI: 19.1 Code: 15568-3 Heart Rate 1: 82 bpm Height: 5'11" Respiratory Rate: 22 bpm SpO2: 97% Tempera ture: 36.4 (C) / 97.6 (F) Weight: 137 lbs 04/25/2018 Blood Pressure 1: 118/64 Code: 8480-6 BMI: 19.2 Code: 44782-1 Heart Rate 1: 98 bpm Height: 5'11" Respiratory Rate: 20 bpm SpO2: 99% Tempera ture: 36.4 (C) / 97.6 (F) Weight: 138 lbs 11/06/2017 Blood Pressure 1: 108/68 Code: 8480-6 BMI: 18.5 Code: 47639-8 Heart Rate 1: 68 bpm Height: 5'11" Respiratory Rate: 20 bpm SpO2: 96% Tempera ture: 36.8 (C) / 98.2 (F) Weight: 133 lbs 09/03/2017 Blood Pressure 1: 122/64 Code: 8480-6 BMI: 17.6 Code: 43965-3 Heart Rate 1: 90 bpm Height: 5'11" Respiratory Rate: 20 bpm SpO2: 98% Tempera ture: 36.4 (C) / 97.6 (F) Weight: 126 lbs 08/21/2017 Blood Pressure 1: 114/80 Code: 8480-6 BMI: 17.9 Code: 13264-2 Heart Rate 1: 80 bpm Height: 5'11" Respiratory Rate: 20 bpm SpO2: 95% Tempera ture: 36.6 (C) / 97.9 (F) Weight: 128 lbs 02/13/2017 Blood Pressure 1: 122/60 Code: 8480-6 BMI: 18.5 Code: 92556-7 Heart Rate 1: 76 bpm Height: 5'11" Respiratory Rate: 20 bpm SpO2: 96% Tempera ture: 36.9 (C) / 98.4 (F) Weight: 133 lbs 11/23/2016 Blood Pressure 1: 126/70 Code: 8480-6 BMI: 18.5 Code: 41277-0 Heart Rate 1: 100 bpm Height: 5'11" Respiratory Rate: 20 bpm SpO2: 96% Tempera ture: 37.1 (C) / 98.8 (F) Weight: 133 lbs 05/23/2016 Blood Pressure 1: 128/82 Code: 8480-6 BMI: 18.5 Code: 16845-7 Heart Rate 1: 88 bpm Height: 5'11" Respiratory Rate: 20 bpm Temperature: 36 .7 (C) / 98.0 (F) Weight: 133 lbs 05/10/2016 Blood Pressure 1: 146/70 Code: 8480-6 BMI: 18.5 Code: 56592-0 Heart Rate 1: 84 bpm Height: 5'11" Respiratory Rate: 20 bpm Temperature: 36 .7 (C) / 98.1 (F) Weight: 133 lbs 04/01/2015 Blood Pressure 1: 102/60 Code: 8480-6 BMI: 18.5 Code: 11817-4 Heart Rate 1: 64 bpm Height: 5'11" Respiratory Rate: 20 bpm Temperature: 36 .8 (C) / 98.2 (F) Weight: 133 lbs 01/13/2014 Blood Pressure 1: 124/78 Code: 8480-6 BMI: 19.8 Code: 59835-8 Heart Rate 1: 76 bpm Height: 5'11" Respiratory Rate: 20 bpm Temperature: 36 .8 (C) / 98.2 (F) Weight: 142 lbs 04/03/2012 Blood Pressure 1: 106/76 Code: 8480-6 BMI: 20.9 Code: 55463-2 Heart Rate 1: 84 bpm Height: 5'11" Respiratory Rate: 20 bpm Temperature: 36 .7 (C) / 98.0 (F) Weight: 150 lbs 12/20/2011 Blood Pressure 1: 116/60 Code: 8480-6 BMI: 20.1 Code: 69490-2 Heart Rate 1: 80 bpm Height: 5'11" Respiratory Rate: 20 bpm Temperature: 36 .4 (C) / 97.6 (F) Weight: 144 lbs 10/24/2011 Blood Pressure 1: 132/74 Code: 8480-6 BMI: 19.7 Code: 73097-8 Heart Rate 1: 96 bpm Height: 5'11" [...] 04/01/2015 follow up 01/13/2014 [facility] from Justin Palacio'justin in November 2012 lab draw 07/19/2012 follow up 04/03/2012 S/P stent placement in LAD, changed effient to plavix hip pain 12/20/2011 dyskinesia or tremor 10/24/2011 follow up 03/13/2011 started on effient, zocor, and atenolol follow up 02/20/2011 Hospital Fwup/Dr Christian rojas follow up 02/23/2010 hosp [facility], appt with Dr Bajwa 03/22/10 insomnia 01/12/2010 problems falling and staying asleep, takes nortriptyline Encounters Encounter Performer Location Codes Date ([id number]) OFFICE/OUTPATIENT VISIT EST Diagnosis: Encounter for therapeutic drug level monitoring[ICD10: Z51.81] Diagnosis: Essential tremor[ICD10: G25.0] Verna Alvarez [facility] CPT-4: 34902 09/24/2019 ([id number]) OFFICE/OUTPATIENT VISIT EST Diagnosis: Noninfective gastroenteritis and colitis, unspecified[ICD10: K52.9] Diagnosis: Hemorrhage of anus and rectum[ICD10: K62.5] Vonnie Loza [facility] CPT-4: 78567 05/26/2019 ([id number]) OFFICE/OUTPATIENT VISIT EST Diagnosis: Other intervertebral disc degeneration, 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] Diagnosis: Other forms of dyspnea[ICD10: R06.09] Vonnie Vásquez KARIE Loza [facility] CPT-4: 60739 03/17/2019 OFFICE/OUTPATIENT VISIT EST Diagnosis: Other intervertebral disc degeneration, 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01] Diagnosis: Benign prostatic hyperplasia without lower urinary tract symptoms[ICD10: N40.0] Vonnie COLMENARES AdeaKim [facility] CPT-4: 98462 09/04/2018 ([id number]) OFFICE/OUTPATIENT VISIT EST Diagnosis: Otorrhea, left ear[ICD10: H92.12] Diagnosis: Impacted cerumen, right ear[ICD10: H61.21] Verna MATHEWS DO [facility] CPT-4: 25904 09/03/2018 ([id number]) OFFICE/OUTPATIENT VISIT EST Diagnosis: Other intervertebral disc degeneration, 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] Diagnosis: Primary insomnia[ICD10: F51.01] Diagnosis: Essential tremor[ICD10: G25.0] Vonnie MATHEWS DO [facility] CPT-4: 70694 08/26/2018 ([id number]) OFFICE/OUTPATIENT VISIT EST Diagnosis: Pelvic and perineal pain[ICD10: R10.2] Verna MATHEWS [employer] [facility] CPT-4: 97412 05/15/2018 ([id number]) OFFICE/OUTPATIENT VISIT EST Diagnosis: Encounter for therapeutic drug level monitoring[ICD10: Z51.81] Diagnosis: Acute sinusitis, unspecified[ICD10: J01.90] Diagnosis: Other intervertebral disc degeneration, 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] Diagnosis: Essential tremor[ICD10: G25.0] Diagnosis: Raynaud's syndrome without gangrene[ICD10: I73.00] Verna MATHEWS [employer] [facility] CPT-4: 84186 04/25/2018 ([id number]) OFFICE/OUTPATIENT VISIT EST Diagnosis: Idiopathic urticaria[ICD10: L50.1] Diagnosis: Other urticaria[ICD10: L50.8] Vonnie MATHEWS [employer] [facility] CPT-4: 91039 11/16/2017 ([id number]) OFFICE/OUTPATIENT VISIT EST Diagnosis: Idiopathic urticaria[ICD10: L50.1] Diagnosis: Other urticaria[ICD10: L50.8] Diagnosis: Other forms of dyspnea[ICD10: R06.09] Vonnie BREWERNE Denia MATHEWS [employer] [facility] CPT-4: 34105 11/06/2017 ([id number]) OFFICE/OUTPATIENT VISIT EST Diagnosis: Dyspnea, unspecified[ICD10: R06.00] Diagnosis: Abnormal weight loss[ICD10: R63.4] Vonnie LUCIA AdeaKim MATHEWS [facility] [employer] CPT-4: 71003 09/03/2017 ([id number]) OFFICE/OUTPATIENT VISIT EST 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] Diagnosis: Mixed hyperlipidemia[ICD10: E78.2] Diagnosis: Essential tremor[ICD10: G25.0] Diagnosis: Essential (primary) hypertension[ICD10: I10] Diagnosis: Abnormal weight loss[ICD10: R63.4] Vonnie Sebastianalyssamaxi RAFAT [facility] CPT-4: 12101 08/21/2017 ([id number]) OFFICE/OUTPATIENT VISIT EST Diagnosis: Mixed hyperlipidemia[ICD10: E78.2] Diagnosis: Essential (primary) hypertension[ICD10: I10] 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] Diagnosis: Anemia, unspecified[ICD10: D64.9] Vonnie Orendmaxi ASCENCIOMARSHA Galarza Denia [facility] CPT-4: 60180 07/31/2017 ([id number]) OFFICE/OUTPATIENT VISIT EST Diagnosis: FLU VACCINE[ICD10: Z23] Vonnie Sebastianalyssamaxi ASCENCIOVONNIE Denia GERMAN [facility] CPT-4: 04118 07/04/2017 ([id number]) OFFICE/OUTPATIENT VISIT EST Diagnosis: Mixed hyperlipidemia[ICD10: E78.2] Diagnosis: Essential tremor[ICD10: G25.0] 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] Diagnosis: Essential (primary) hypertension[ICD10: I10] Diagnosis: Supraventricular tachycardia[ICD10: I47.1] Diagnosis: Other fatigue[ICD10: R53.83] Diagnosis: Encounter for screening for malignant neoplasm of prostate[ICD10: Z12.5] Vonnie COLMENARES Denia MATHEWS [facility] CPT-4: 81995 02/26/2017 ([id number]) OFFICE/OUTPATIENT VISIT EST Diagnosis: Essential tremor[ICD10: G25.0] Vonnie MATHEWS DO [facility] CPT-4: 29496 02/13/2017 ([id number]) OFFICE/OUTPATIENT VISIT EST Diagnosis: Essential tremor[ICD10: G25.0] Diagnosis: Other intervertebral disc degeneration, 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] Vonnie MATHEWS DO [facility] CPT-4: 71502 11/23/2016 ([id number]) OFFICE/OUTPATIENT VISIT EST Diagnosis: FLU VACCINE[ICD10: Z23] Vonnie GERMAN DO [facility] CPT-4: 87017 06/28/2016 OFFICE/OUTPATIENT VISIT EST Diagnosis: Open bite of right hand, initial encounter[ICD10: S61.451A] Vonnie MATHEWS DO [facility] CPT-4: 07591 05/23/2016 ([id number]) OFFICE/OUTPATIENT VISIT EST Diagnosis: Encounter for general adult medical examination with abnormal findings[ICD10: Z00.01] Diagnosis: Mixed hyperlipidemia[ICD10: E78.2] Diagnosis: Essential tremor[ICD10: G25.0] 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] Vonnie MATHEWS DO [facility] CPT-4: 01452 05/19/2016 ([id number]) OFFICE/OUTPATIENT VISIT EST Diagnosis: HYPERLIPIDEMIA NEC/NOS[ICD9: 272.4] Diagnosis: CAD[ICD9: 414.00] Diagnosis: TACHYCARDIA[ICD9: 785.0] Diagnosis: HYPERTENSION[ICD9: 401.9] Diagnosis: Routine medical exam[ICD9: V70.0] Vonnie MATHEWS DO [facility] CPT-4: 23658 04/05/2015 ([id number]) OFFICE/OUTPATIENT VISIT EST Diagnosis: HYPERTENSION[ICD9: 401.9] Diagnosis: HYPERLIPIDEMIA NEC/NOS[ICD9: 272.4] Diagnosis: CAD[ICD9: 414.00] Diagnosis: LUMB/LUMBOSAC DISC DEGEN[ICD9: 722.52] Vonnie LAINeri GASPAR Denia MATHEWS DO [facility] CPT-4: 50762 04/01/2015 ([id number]) OFFICE/OUTPATIENT VISIT EST Diagnosis: CHEST PAIN NOS[ICD9: 786.50] Diagnosis: PAIN IN THORACIC SPINE[ICD9: 724.1] Diagnosis: HYPERTENSION[ICD9: 401.9] Diagnosis: GERD[ICD9: 530.81] Vonnie MaciasKim ROMULONDER [facility] CPT-4: 70767 01/13/2014 ([id number]) OFFICE/OUTPATIENT VISIT EST Diagnosis: CAD[ICD9: 414.00] Diagnosis: HYPERLIPIDEMIA NEC/NOS[ICD9: 272.4] Vonniejuan jose Mahtews SONUClary ANNA SKim ROMULONDER DO [facility] CPT-4: 76700 07/19/2012 ([id number]) OFFICE/OUTPATIENT VISIT EST Diagnosis: CAD[ICD9: 414.00] Diagnosis: INSOMNIA NOS[ICD9: 780.52] Vonnie Romulojuan miguel Loza OR YUL[facility] CPT-4: 23750 04/03/2012 ([id number]) OFFICE/OUTPATIENT VISIT EST Diagnosis: CHEST PAIN NOS[ICD9: 786.50] Diagnosis: CAD[ICD9: 414.00] Vonnie ASCENCIOLINE JustinKim ROMULONDER DO [facility] CPT-4: 43232 03/22/2012 ([id number]) OFFICE/OUTPATIENT VISIT EST Diagnosis: PROSTATITIS[ICD9: 601.9] Diagnosis: TREMOR NEC[ICD9: 333.1] Vonnie Reid VONNIE JustinKim ROMULOND ER DO [facility] CPT-4: 84704 12/20/2011 OFFICE/OUTPATIENT VISIT EST Diagnosis: TREMOR NEC[ICD9: 333.1] Diagnosis: TACHYCARDIA[ICD9: 785.0] Diagnosis: HYPERTENSION[ICD9: 401.9] Vonnie Romuloalyssamaxi VONNIE JustinKim ORE NDER DO [facility] CPT-4: 95089 10/24/2011 OFFICE/OUTPATIENT VISIT EST Vonnie Romulojuan miguel COLMENARES JustinKim ROMULO NDER DO [facility] CPT- 4: 30158 03/13/2011 ([id number]) OFFICE/OUTPATIENT VISIT EST Vonnie GASPAR SKim ORENDER DO [facility] CPT-4: 16334 02/20/2011 ([id number]) OFFICE/OUTPATIENT VISIT, EST Vonnie Romulojuan miguel MATHEWS DO [employer] CPT-4: 98206 02/23/2010 ([id number]) OFFICE/OUTPATIENT VISIT, EST Vonnie Reid NELSON JustinKim ROMULOALYSSAMAXI [employer] CPT-4: 56015 01/12/2010 Plan of Care Planned Activity Notes Codes Status Date Appointment: Verna Ramirez [address] [facility] [place] RESCHEDULED 09/25/2019 Visit Diagnosis Plan: Essential tremor Discussion: sta ble on clonazepam. educated patient about purchasing a large, heavy pen that will allow him to improve his writing. instructed him that pens can be purchased on [employer]. ICD-9 : 333.1 ICD-10 : G25.0 09/24/2019 Visit Diagnosis Plan: Encounter for therapeutic drug l evel monitoring Discussion: UDS and contract completed today. ICD-9 : V58.83 ICD-10 : Z51.81 09/24/2019 Appointment: Verna Ramirez [address] [facility] [place] MEDICATION REVIEW 09/24/2019 Visit Diagnosis Plan: Noninfective gastroenteritis and colitis, unspecified Discussion: Flagyl [place] diet Update colonoscopy ICD-9 : 558.9 ICD-10 : K52.9 05/26/2019 Visit Diagnosis Plan: Hemorrhage of anus and rectum Di scussion: Update colonoscopy ICD-9 : 569.3 ICD-10 : K62.5 05/26/2019 Appointment: Vonnie Mathews WPtel: [address] [place], [place] [phone] [place] record request faxed 05/23; ANGELINA with medical records 05/26/19 Hospital Follow Up 05/26/2019 Care Plan: Referral Order SNOMED-CT : 30 [id number] Pending 05/26/2019 Visit Diagnosis Plan: Other intervertebral disc degene ration, lumbar region Discussion: Increase lyrica to 150mg po q HS Continue stretches from PT [facility] Fwup after that appointment ICD-9 : 722.52 ICD-10 : M51.36 03/17/2019 Appointment: Vonnie Mathews WPtel: [phone] [facility] [place] FOLLOW UP 03/17/2019 Visit Diagnosis Plan: Other intervertebral disc degene ration, lumbar region Discussion: Start PT Referral for epidural Will start lyrica 75mg po q HS once CT scan results obtained [facility] Up: 3 weeks ICD-9 : 722.52 [...] : R29.898 02/18/2019 Appointment: Vonnie Mathews WPtel: [address] [place], [place] [phone] FOLLOW UP 02/18/2019 Appointment: Vonnie Mathews WPtel: [address] [place], [place] [id number] [place] CANCELED 02/18/2019 Visit Diagnosis Plan: Other [...] ICD-10 : J30.89 01/13/2019 Appointment: Akilah Lopez [facility] [place] Due for annual wellness ACUTE ILLNESS 01/14/20 19 Appointment: Vonnie Mathews WPtel: [address] [place], [place] [id number] [place] LAB 09/04/2018 Visit Diagnosis Plan: Impacted [...] ICD-10 : H92.12 09/03/2018 Appointment: Verna Ramirez [address] [place], [place] [phone] ACUTE ILLNESS 09/03/2018 Visit Diagnosis Plan: [...] : M51.36 08/26/2018 Appointment: Vonnie Mathews WPtel: [facility]3 [facility] [place] FOLLOW UP 08/26/2018 Visit [...] ICD-10 : R10.2 05/15/2018 Appointment: Verna Ramirez [address] [place], [place] [phone] ACUTE ILLNESS 05/15/2018 Patient Education: Patient Medication Summary Completed 05/15/2018 Care Plan: US EXAM PELVIC COMPLETE scrotal LOINC : 16477-7 Pending 05/15/2018 Visit Diagnosis Plan: Other intervertebral [...] ICD-10 : I73.00 04/25/2018 Appointment: Verna Ramirez [address] [place] [address] MEDICATION REVIEW 04/25/2018 Patient Education: Patient Medication Summary Completed 04/25/2018 Appointment: Vonnie Mathews WPtel: [address] [place] [address] 11/16/2017 Patient Education: Patient Medication Summary Completed [...] : L50.1 11/06/2017 Appointment: Vonnie Mathews WPtel: [facility] [address] FOLLOW UP 11/06/2017 Patient Education: Patient [...] : R63.4 09/03/2017 Appointment: Vonnie Mathews WPtel: [address] [place], [place] [phone] [place] FOLLOW UP 09/03/2017 Patient Education: Patient [...] Diagnosis Plan: Atherosclerotic he art disease of [place] coronary artery without angina pectoris Discussion: Sees Cardiology in 2 days To ER if CP returns before ICD-9 : 414.00 ICD-10 : I25.10 08/21/2017 Appointment: Vonnie Mathews WPtel: [address] [place] [id number] [place] FOLLOW UP 08/21/2017 Patient Education: Patient Medication Summary Completed 08/21/2017 Appointment: Vonnie Mathewstel: [address] [place], [place] [phone] [place] LAB 07/31/2017 Patient Education: Patient Medication Summary Completed 07/31/2017 Appointment: Vonnie Mathews WPtel: [address] [place], [place] [id number] [place] INJECTION 07/04/2017 Patient Education: Patient Medication Summary Completed 07/04/2017 Appointment: Vonnie Mathews WPtel: [address] [place], [place] [phone] [place] LAB 02/26/2017 Patient Education: Patient Medication Summary Completed 02/26/2017 Visit Diagnosis Plan: Essential tremor Discussion: Con tinue clonazepam at 1mg q AM and primidone 50mg q HS Follow Up: 3 months ICD-9 : 333.1 ICD-10 : G25.0 02/13/2017 Appointment: Vonnie Mathews WPtel: [address] [place], [place] [phone] 02/08 confirmed~sl FOLLOW UP 02/13/2017 Patient Education: Patient Medication Summary Completed 02/13/2017 Appointment: Vonnie Mathews WPtel: [address] [place] [address] RESCHEDULED 01/23/2017 Visit Diagnosis Plan: Other intervertebral disc degene ration, lumbar region Discussion: DC oxycodone Tramadol 50mg 1-2 po TID prn pain Follow Up: 2 months ICD-9 : 722.52 ICD-10 : M51.36 11/23/2016 Visit Diagnosis Plan: Essential tremor Discussion: Inc rease clonazepam to 1mg po BID Discussed sinemet ICD-9 : 333.1 ICD-10 : G25.0 11/23/2016 Appointment: Vonnie Mathews WPtel: [address] [place], [place] [phone] 11/22 confirmed~sl MEDICATION REVIEW 11/23/2016 Patient Education: Patient Medication Summary Completed 11/23/2016 Patient Education: [facility] - [employer] - Clonazepam - 18-64 - Dynamic Portal ID Completed 11/23/2016 Appointment: Vonnie Mathews WPtel: [address] [place], [place] [phone] [place] INJECTION 06/28/2016 Patient Education: Patient Medication Summary Completed 06/28/2016 Referral: Fernando Day WPtel: #1 [facility] [place] [facility] Shilpa Lopez [id number] [phone] per Maribeth, the patient is sched uled [...] if worsening 05/23/2016 Appointment: Vonnie Mathews WPtel: [phone] [place] [address] ER Follow UP 05/23/2016 Patient Education: Patient Medication Summary Completed 05/23/2016 Appointment: Vonnie Mathews WPtel: [address] [place], [place] [phone] [place] LAB 05/19/2016 Patient Education: Patient Medication Summary Completed 05/19/2016 Visit Plan: Change coreg to 3.125mg BID Trial of low dose clonazepam 0.5mg BID for tremors Fwup with Dr. Ramsey as scheduled Return for fasting lab--CBC, CMP, TSH, free T4, Lipids, PSA, B12 Proceed with Colonoscopy 05/10/2016 Appointment: Vonnie Mathews WPtel: [address] [place], [place] [phone] 05/09 confirmed~sl Annual Well Visit 05/10/2016 Patient Education: Patient Medication Summary Completed 05/10/2016 Care Plan: Referral Order SNOMED-CT : 30 [id number] Pending 05/10/2016 Appointment: Vonnie Mathews WPtel: [address] [place], [place] [phone] [place] Rescheduled for 05/10/16 at 2PM~lb RESCHEDULED 04/26/2016 Referral: Danilo Ramsey WPtel: [phone] [id number] [place] Referral Initiated 04/29/2015 Appointment: Vonnie Mathews WPtel: [address] [place] [id number] [place] LAB 04/05/2015 Patient Education: Patient Medication Summary Completed 04/05/2015 Visit Plan: Return in AM for fasting lab --CMP, lipids, CBC, TSH, PSA Change hydrocodone to oxycodone 7.5/325mg 1-2 po TID Schedule with cardiology Needs colonoscopy once cardiology evaluation complete Will need to restart chol meds after lab Recheck 1mo on pain meds 04/01/2015 Appointment: Vonnie Mathews WPtel: [address] [place], [place] [phone] [place] 03/31 confirmed -mf PHYSICAL 04/01/2015 Patient Education: Patient Medication Summary Completed 04/01/2015 Appointment: Vonnie Mathews WPtel: [address] [place], [place] [phone] Annual Well Visit 09/23/2014 Visit Plan: Continue protonix Pt has fwu p with Card next month Rec chiropracter or PT for ribs/thoracics being out and could be contributing to chest pain 01/13/2014 Appointment: Vonnie Mathews WPtel: [address] [place], [place] [phone] FOLLOW UP 01/13/2014 Patient Education: Patient Medication Summary Completed 01/13/2014 Appointment: Ariella Mcnally WPtel: [address] [place], [place] [phone] [place] FOLLOW UP 12/12/2013 Appointment: Malika Cárdenas WPtel: [address] [place], [place] [phone] PHYSICAL 12/12/2013 Appointment: Vonnie Mathews WPtel: [address] [place], [place] [phone] ACUTE ILLNESS 02/20/2013 Appointment: Vonnie Mathews WPtel: [address] [place], [place] [phone] LAB 07/19/2012 Patient Education: Patient Medication Summary Completed 07/19/2012 Appointment: Vonnie Mathews WPtel: [address] [place] [address] FOLLOW UP 04/03/2012 Patient Education: Patient Medication Summary Completed 04/03/2012 Appointment: Vonnie Mathews WPtel: [address] [place] [address] ACUTE ILLNESS 03/22/2012 Patient Education: Patient Medication Summary Completed 03/22/2012 Appointment: Vonnie Mathews WPtel: [address] [place] [address] FOLLOW UP 12/26/2011 Visit Plan: Add Cipro Continue current m eds 12/20/2011 Appointment: Vonnie Mathews WPtel: [address] [place] [address] ACUTE ILLNESS 12/20/2011 Patient Education: Patient Medication Summary Completed 12/20/2011 Visit Plan: Change neurontin to Cymbalta 30mg for 1wk then 60mg QD Add Propranolol for tremor 10/24/2011 Appointment: Vonnie Mathews WPtel: [address] [place] [address] ACUTE ILLNESS 10/24/2011 Appointment: Vonnie Mathews WPtel: [address] [place] [address] ACUTE ILLNESS 10/24/2011 Patient Education: Patient Medication Summary Completed 10/24/2011 Visit Plan: Continue current meds and fw up with Card as scheduled 03/13/2011 Appointment: Vonnie Mathews WPtel: [address] [place] [address] FOLLOW UP 03/13/2011 Patient Education: Patient Medication Summary Completed 03/13/2011 Visit Plan: Will obtain all records and lab from [facility] Discussed will likely need heart cath which pt states that Card did talk to him about in the hospital 02/20/2011 Appointment: Vonnie Mathews WPtel: [address] [place], [place] [phone] ACUTE ILLNESS 02/20/2011 Patient Education: Patient Medication Summary Completed 02/20/2011 Visit Plan: Cont Pepcid and Prilosec See Card for cardiac cath. 02/23/2010 Appointment: Vonnie Mathews WPtel: [address] [place], [place] [phone] FOLLOW UP 02/23/2010 Patient Education: Patient Medication Summary Completed 02/23/2010 Visit Plan: Increase Pamelor to 75mg qhs Increase Hydrocodone to 10/325mg 1-2 po q6 prn 01/12/2010 Appointment: Vonnie Mathews WPtel: [address] [place], [place] [phone] ACUTE ILLNESS 01/12/2010 Patient Education: Patient Medication Summary Completed 01/12/2010 Referral: Iván Pardo WPtel: [facility] [address] Referral Initiated Referral: Fernando Day WPtel: #[address] Referral Completed Referral: Fernando Day WPtel: #1 [facility] [place] Referral Appointment Requested Instructions Comment [...]
--- OUTSIDE RECORDS SUMMARY | 2020-02-10 08:30 | XMS REPORT | CCD ---
Author Author Nash Mathews D.O. Organization [facility] Address [address] [place] [address] Phone Care Team Providers Care Supervisor Soldering Name Role Phone Vonnie Mathews D.O., PP Unavailable CCM Unavailable Summary Purpose Interface Exchange Insurance Providers Payer name Policy type / Coverage type Covered green party ID Effective Begin Date Effective End Date [employer] MEDIC[place] PART B [place] Medicare Part B [id number] 2018 Unknown Family History Family History data not found Social History Social History Element Codes Description Effective Dates Marital status Unknown 10/24/[address]: 515235488 Nonsmoker 03/29/2011 Allergies, Adverse Reactions, Alerts Substance Reaction Codes Entered Date Inactivated Date Status _ Unknown 11/20/2017 No Inactive Date Active _ reaction, Unknown 11/23/2016 No Inactive Date Active Problems Condition Codes Effective Dates Condition Status Encounter for therapeutic drug level monitoring ICD-9: V58.83 ICD-10: Z51.81 04/25/2018 Active Essential tremor ICD-9: 333.1 ICD-10: G25.0 09/24/2019 Active Essential (primary) hypertension ICD-9: 401.9 ICD-10: I10 02/26/2017 Active Hemorrhage of anus and rectum ICD-9: [...] urticaria ICD-9: 708.1 ICD-10: L50.1 11/06/2017 Active Mixed hyperlipidemia ICD-9: 272.4 ICD-10: E78.2 07/19/2012 Active Impacted cerumen, right ear ICD-9: 380.4 [...] R63.4 08/21/2017 Active Atherosclerotic heart disease of [place] coronary arter y without angina pectoris ICD-9: [...] Fill Instructions clonazepam 1 mg tablet RxNorm: 656822 TAKE 1 TABLET BY MOUTH EV SUSAN AM 09/23/2019 10/22/2019 Active clonazepam 1 mg tablet RxNorm: 161687 TAKE 1 TABLET BY MOUTH EV SUSAN AM 08/21/2019 09/22/2019 Inactive Singulair 10 mg tablet RxNorm: 399497 TABLET(S) 1 TABLET(S) PO QD 1 10/11/2019 Active Flagyl 500 mg tablet RxNorm: 659595 1 Tablet(s) PO TID 05/26/2019 Inactive clonazepam 1 mg tablet RxNorm: 655299 TAKE 1 TABLET BY MOUTH EV SUSAN MORNING 05/23/2019 06/21/2019 Inactive pravastatin 20 mg tablet RxNorm: 991600 1 Tablet(s) PO QD 04/14/2019 10/10/2019 Active Needs updated fasting labs Singulair 10 mg tablet RxNorm: 062313 Tablet(s) 1 TABLET(S) PO QD 0 04/14/2019 07/12/2019 Inactive clonazepam 1 mg tablet RxNorm: 498443 1 Tablet(s) PO QAM 02/21/2019 0 05/23/2019 Inactive Bevespi Aerosphere 9 mcg-4.8 mcg HFA aerosol inhaler RxNorm: 8739480 2 Puff(s) INH BID 02/19/2019 No Stop Date Active ProAir HFA 90 mcg/actuation aerosol inhaler RxNorm: 278948 2 Puff(s) INH Q4H as needed 02/19/2019 09/24/2019 Inactive metoprolol tartrate 25 mg tablet RxNorm: 046256 1/2 Tablet(s) PO BI D 02/18/2019 05/18/2019 Inactive pravastatin 20 mg tablet RxNorm: 825920 1 Tablet(s) PO QD Needs updated fasting labs 01/13/2019 04/14/2019 Inactive Needs updated fa sting labs Singulair 10 mg tablet RxNorm: 235113 Tablet(s) 1 TABLET(S) PO QD 0 01/13/2019 04/12/2019 Inactive Plavix 75 mg tablet RxNorm: 229462 Tablet(s) 1 TABLET(S) PO QD 04/201906/20/2019 Inactive [SAVINGS FOR NON-COVERED SHANDA -- BIN:638211, PCN: ASPROD1, Group: XXXXX, ID# [id number], Questions: . THIS IS NOT INSURANCE.] Singulair 10 mg tablet RxNorm: 556438 1 TABLET(S) PO QD 10/29/2018 Inactive primidone 50 mg tablet RxNorm: 787844 2 TABLET(S) PO BI D TAKE 2 TABLETS BY MOUTH EVERY NIGHT AT BEDTIME 10/07/2018 01/12/2019 Inactive Patient requests 90 days supply pravastatin 20 mg tablet RxNorm: 533854 1 TABLET(S) PO QD 09/23/2018 01/12/2019 Inactive clonazepam 1 mg tablet RxNorm: 773707 1 Tablet(s) PO QAM 09/19/2018 0 12/17/2018 Inactive primidone 50 mg tablet RxNorm: 016561 TABLET(S) TAKE 2 TABLETS BY MOUTH EVERY NIGHT AT BEDTIME 09/18/2018 01/12/2019 Inactive ciprofloxacin 0.2 % ear drops in a dropperette RxNorm: 23607 6 2 Drop(s) left otic (ear) BID 09/03/2018 09/09/2018 Inactive primidone 50 mg tablet RxNorm: 586744 2 Tablet(s) PO BI D TAKE 2 TABLETS BY MOUTH EVERY NIGHT AT BEDTIME 08/26/2018 10/06/2018 Inactive Ambien 5 mg tablet RxNorm: 387302 TAKE 1 TABLET BY MOUTH EVERY NIGHT AT BEDTIME 08/05/2018 09/03/2018 Inactive Singulair 10 mg tablet RxNorm: 400413 1 TABLET(S) PO QD 07/23/2018 Inactive clonazepam 1 mg tablet RxNorm: 194607 TAKE 1 TABLET BY MOUTH EV SUSAN MORNING 07/23/2018 08/21/2018 Inactive Plavix 75 mg tablet RxNorm: 177364 1 TABLET(S) PO QD 07/04/201812/22 Inactive [SAVINGS FOR NON-COVERED DRUGS -- BIN:00 3585, PCN: ASPROD1, Group: XXXXX, ID# [id number], Questions: . THIS IS NOT INSURANCE.] clonazepam 1 mg tablet RxNorm: 158718 TAKE 1 TABLET BY MOUTH EV SUSAN MORNING 06/25/2018 07/23/2018 Inactive clonazepam 1 mg tablet RxNorm: 009756 TAKE 1 TABLET BY MOUTH EV SUSAN MORNING 05/23/2018 06/21/2018 Inactive primidone 50 mg tablet RxNorm: 134739 Tablet(s) TAKE 2 TABLETS BY MOUTH EVERY NIGHT AT BEDTIME 05/16/2018 08/25/2018 Inactive oxycodone-acetaminophen 7.5 mg-325 mg tablet RxNorm: 0720699 1-2 Tablet(s) PO TID as needed 04/25/2018 05/24/2018 Inactive Singulair 10 mg tablet RxNorm: 192948 1 Tablet(s) PO QD 04/25/2018 Inactive Medrol (Jose) 4 mg tablets in a dose pack RxNorm: 848133 Tablet(s) PO take as directed 04/25/2018 09/02/2018 Inactive clonazepam 1 mg tablet RxNorm: 203233 TAKE 1 TABLET BY MOUTH EV SUSAN MORNING 04/24/2018 05/22/2018 Inactive Plavix 75 mg tablet RxNorm: 985683 1 TABLET(S) PO QD 04/04/201807/02 Inactive [SAVINGS FOR NON-COVERED DRUGS -- BIN:00 3589, PCN: ASPROD1, Group: XXXXX, ID# [id number], Questions: . THIS IS NOT INSURANCE.] pravastatin 20 mg tablet RxNorm: 456038 1 Tablet(s) PO QD 03/21/2018 09/16/2018 Inactive ProAir HFA 90 mcg/actuation aerosol inhaler RxNorm: 495742 2 Puff(s) INH Q4H as needed 03/18/2018 03/17/2018 Inactive tamsulosin 0.4 mg capsule RxNorm: 975042 1 CAPSULE(S) PO QD 018 01/12/2019 Inactive clonazepam 1 mg tablet RxNorm: 062723 1 Tablet(s) PO QAM 02/25/2018 0 04/25/2018 Inactive tamsulosin 0.4 mg capsule RxNorm: 200187 1 Capsule(s) PO QD 018 03/13/2018 Inactive tamsulosin 0.4 mg capsule RxNorm: 344275 1 Capsule(s) PO QD 018 02/03/2018 Inactive tamsulosin 0.4 mg capsule RxNorm: 860539 1 Capsule(s) PO QD 018 02/12/2018 Inactive Ambien 5 mg tablet RxNorm: 364797 Tablet(s) TAKE 1 TAB LET BY MOUTH EVERY NIGHT AT BEDTIME 01/24/2018 08/05/2018 Inactive primidone 50 mg tablet RxNorm: 930933 Tablet(s) TAKE 2 TABLETS BY MOUTH EVERY NIGHT AT BEDTIME 01/18/2018 05/16/2018 Inactive cyclobenzaprine 10 mg tablet RxNorm: 362178 1 Tablet(s) PO TID as needed for muscle spasm 01/11/2018 02/09/2018 Inactive [SAVINGS FOR NON -COVERED DRUGS -- BIN:613937, PCN: ASPROD1, Group: XXXXX, ID# [id number], Questions: . THIS IS NOT INSURANCE.] clonazepam 1 mg tablet RxNorm: 025306 1 Tablet(s) PO QAM 12/24/2017 0 02/21/2018 Inactive prednisone 20 mg tablet RxNorm: 048057 1 Tablet(s) PO QD 11/06/2017 0 11/10/2017 Inactive EpiPen 2-Jose 0.3 mg/0.3 mL injection, auto-injector RxNorm: 387487 1 Unit Dose IM as needed 11/06/2017 09/24/2019 Inactive ProAir HFA 90 mcg/actuation aerosol inhaler RxNorm: 784930 2 Puff(s) INH Q4H as needed 10/30/2017 03/17/2018 Inactive primidone 50 mg tablet RxNorm: 504555 TAKE 2 TABLETS BY MOUTH EVERY NIGHT AT BEDTIME 10/15/2017 01/17/2018 Inactive Plavix 75 mg tablet RxNorm: 063020 1 Tablet(s) PO QD 10/01/201703/29 Inactive [SAVINGS FOR NON-COVERED DRUGS -- BIN:00 3585, PCN: ASPROD1, Group: XXXXX, ID# [id number], Questions: . THIS IS NOT INSURANCE.] clonazepam 1 mg tablet RxNorm: 638534 1 Tablet(s) PO QAM 09/19/2017 0 12/16/2017 Inactive primidone 50 mg tablet RxNorm: 220926 2 Tablet(s) PO QHS 08/29/2017 0 01/18/2018 Inactive oxycodone-acetaminophen 7.5 mg-325 mg tablet RxNorm: 8137732 1-2 Tablet(s) PO TID as needed 08/22/2017 09/19/2017 Inactive pravastatin 20 mg tablet RxNorm: 579126 1 Tablet(s) PO QD 08/21/2017 03/21/2018 Inactive carvedilol 3.125 mg tablet RxNorm: 654479 1 Tablet(s) P O BID to replace 6.25mg dose 08/21/2017 09/02/2017 Inactive primidone 50 mg tablet RxNorm: 486929 TAKE 2 TABLETS BY MOUTH EVERY NIGHT AT BEDTIME 06/18/2017 08/28/2017 Inactive clonazepam 1 mg tablet RxNorm: 805463 1 Tablet(s) PO QAM 06/04/2017 1 11/02/2016 Inactive Plavix 75 mg tablet RxNorm: 958816 1 Tablet(s) PO QD 04/10/201710/01 Inactive [SAVINGS FOR NON-COVERED DRUGS -- BIN:00 3585, PCN: ASPROD1, Group: XXXXX, ID# [id number], Questions: . THIS IS NOT INSURANCE.] pravastatin 20 mg tablet RxNorm: 468826 1 Tablet(s) PO QD 02/26/2017 08/24/2017 Inactive carvedilol 3.125 mg tablet RxNorm: 027943 1 Tablet(s) P O BID to replace 6.25mg dose 02/26/2017 08/21/2017 Inactive Ultram 50 mg tablet RxNorm: 951551 TAKE 1 TO 2 TABLETS BY MOUTH THREE TIMES DAILY NEEDED FOR PAIN 02/26/2017 03/07/2017 Inactive pravastatin 20 mg tablet RxNorm: 326082 1 Tablet(s) PO QD 02/26/2017 08/21/2017 Inactive carvedilol 3.125 mg tablet RxNorm: 364450 1 Tablet(s) P O BID to replace 6.25mg dose 02/26/2017 08/20/2017 Inactive clonazepam 0.5 mg tablet RxNorm: 266022 1 Tablet(s) PO QAM 02/14/20 17 02/13/2017 Inactive primidone 50 mg tablet RxNorm: 106298 1 Tablet(s) PO QHS 02/13/2017 0 05/01/2017 Inactive clonazepam 1 mg tablet RxNorm: 041093 1 Tablet(s) PO QAM 02/13/2017 0 05/13/2017 Inactive primidone 50 mg tablet RxNorm: 062780 1/2 Tablet(s) PO QD for 7 days then increase to 1 tablet at bedtime 01/09/2017 02/12/2017 Inactive pravastatin 20 mg tablet RxNorm: 281618 Tablet(s) 1 TABLET(S) PO QD 11/29/2016 02/25/2017 Inactive clonazepam 1 mg tablet RxNorm: 641480 1 Tablet(s) PO BID replac es 0.5mg dose 11/23/2016 01/08/2017 Inactive pravastatin 20 mg tablet RxNorm: 152432 1 TABLET(S) PO QD 11/17/2016 11/28/2016 Inactive Ambien 5 mg tablet RxNorm: 555919 TAKE 1 TABLET BY MOUTH EVERY NIGHT AT BEDTIME 11/17/2016 12/14/2016 Inactive clonazepam 0.5 mg tablet RxNorm: 765645 TAKE 1 TABLET BY MOUTH TWICE DAILY 11/17/2016 11/22/2016 Inactive Plavix 75 mg tablet RxNorm: 871453 1 Tablet(s) PO QD 11/06/201604/09 Inactive [SAVINGS FOR NON-COVERED DRUGS -- BIN:00 3585, PCN: ASPROD1, Group: XXXXX, ID# [id number], Questions: . THIS IS NOT INSURANCE.] Plavix 75 mg tablet RxNorm: 952961 1 Tablet(s) PO QD 08/28/201611/05 Inactive [SAVINGS FOR NON-COVERED DRUGS -- BIN: 3585, PCN: ASPROD1, Group: XXXXX, ID# [id number], Questions: . THIS IS NOT INSURANCE.] Lidoderm 5 % topical patch RxNorm: 3979039 Application T OP 2 patches for 12hrs then off for 12hrs 08/28/2016 08/27/2016 Inactive clonazepam 0.5 mg tablet RxNorm: 381519 1 Tablet(s) PO BID 08/07/20 16 11/22/2016 Inactive pravastatin 20 mg tablet RxNorm: 233137 1 Tablet(s) PO QD 08/07/2016 11/04/2016 Inactive cyclobenzaprine 10 mg tablet RxNorm: 680781 1 Tablet(s) PO TID as needed for muscle spasm 08/07/2016 09/05/2016 Inactive [SAVINGS FOR NON -COVERED DRUGS -- BIN:877444, PCN: ASPROD1, Group: XXXXX, ID# [id number], Questions: . THIS IS NOT INSURANCE.] Plavix 75 mg tablet RxNorm: 678248 1 Tablet(s) PO QD 08/07/201608/27 Inactive [SAVINGS FOR NON-COVERED DRUGS -- BIN:00 3585, PCN: ASPROD1, Group: XXXXX, ID# [id number], Questions: . THIS IS NOT INSURANCE.] carvedilol 3.125 mg tablet RxNorm: 253023 1 Tablet(s) P O BID to replace 6.25mg dose 08/07/2016 02/02/2017 Inactive clonazepam 0.5 mg tablet RxNorm: 775012 1 Tablet(s) PO BID 07/04/2008/07/2016 Inactive Plavix 75 mg tablet RxNorm: 941837 1 TABLET(S) PO QD 06/20/201608/06 Inactive [SAVINGS FOR NON-COVERED DRUGS -- BIN:00 3585, PCN: ASPROD1, Group: XXXXX, ID# [id number], Questions: . THIS IS NOT INSURANCE.] clonazepam 0.5 mg tablet RxNorm: 870322 1 Tablet(s) PO BID 06/09/20 16 07/03/2016 Inactive pravastatin 20 mg tablet RxNorm: 543215 1 Tablet(s) PO QD 05/23/2016 08/06/2016 Inactive pravastatin 20 mg tablet RxNorm: 487597 1 Tablet(s) PO QD 05/23/2016 05/22/2016 Inactive carvedilol 3.125 mg tablet RxNorm: 673191 1 Tablet(s) P O BID to replace 6.25mg dose 05/10/2016 08/06/2016 Inactive carvedilol 3.125 mg tablet RxNorm: 717818 1 Tablet(s) P O BID to replace 6.25mg dose 05/10/2016 05/09/2016 Inactive clonazepam 0.5 mg tablet RxNorm: 113220 1 Tablet(s) PO BID 05/10/20 16 06/08/2016 Inactive carvedilol 6.25 mg tablet RxNorm: 590337 1 Tablet(s) PO QD 05/10/20 16 05/10/2016 Inactive simvastatin 40 mg tablet RxNorm: 392272 1 TABLET(S) PO QD 04/10/2016 05/09/2016 Inactive Medrol (Jose) 4 mg tablets in a dose pack RxNorm: 895206 Tablet(s) PO As Directed 01/13/2016 05/09/2016 Inactive cyclobenzaprine 10 mg tablet RxNorm: 111482 1 TABLET(S) PO TID NEEDED FOR SPASM 01/11/2016 03/10/2016 Inactive [SAVINGS FOR NON -COVERED DRUGS -- BIN:726638, PCN: ASPROD1, Group: XXXXX, ID# [id number], Questions: . THIS IS NOT INSURANCE.] Plavix 75 mg tablet RxNorm: 260170 1 Tablet(s) PO QD 12/30/201506/19 Inactive [SAVINGS FOR NON-COVERED DRUGS -- BIN: 3585, PCN: ASPROD1, Group: XXXXX, ID# [id number], Questions: . THIS IS NOT INSURANCE.] Ambien 5 mg tablet RxNorm: 433062 TAKE 1 TABLET BY MOUTH EVERY DAY AT BEDTIME 11/15/2015 11/17/2016 Inactive simvastatin 40 mg tablet RxNorm: 701807 1 Tablet(s) PO QD 10/11/2015 01/12/2019 Inactive simvastatin 40 mg tablet RxNorm: 687474 1 Tablet(s) PO QD 10/08/2015 10/10/2015 Inactive Ambien 5 mg tablet RxNorm: 577389 TAKE 1 TABLET BY MOUTH EVERY NIGHT AT BEDTIME 07/27/2015 11/15/2015 Inactive Plavix 75 mg tablet RxNorm: 807790 1 Tablet(s) PO QD 06/28/201512/29 Inactive [SAVINGS FOR NON-COVERED DRUGS -- BIN: 3585, PCN: ASPROD1, Group: XXXXX, ID# [id number], Questions: . THIS IS NOT INSURANCE.] Coreg 6.25 mg tablet RxNorm: 334290 1 TABLET(S) PO BID 04/19/2015 Inactive [SAVINGS FOR NON-COVERED DRUGS -- BIN:00 3585, PCN: ASPROD1, Group: XXXXX, ID# XXXXXXX, Questions: . THIS IS NOT INSURANCE.] simvastatin 40 mg tablet RxNorm: 126145 1 Tablet(s) PO QD 04/05/2015 04/04/2015 Inactive simvastatin 40 mg tablet RxNorm: 219474 1 Tablet(s) PO QD 04/05/2015 10/11/2015 Inactive Plavix 75 mg tablet RxNorm: 679378 1 TABLET(S) PO QD 03/22/201504/20 Inactive [SAVINGS FOR NON-COVERED DRUGS -- BIN:00 3585, PCN: ASPROD1, Group: XXXXX, ID# [id number], Questions: . THIS IS NOT INSURANCE.] Plavix 75 mg tablet RxNorm: 189882 1 Tablet(s) PO QD 03/22/201506/28 Inactive [SAVINGS FOR NON-COVERED DRUGS -- BIN:00 3585, PCN: ASPROD1, Group: XXXXX, ID# [id number], Questions: . THIS IS NOT INSURANCE.] Ambien 5 mg tablet RxNorm: 072654 1 Tablet(s) PO QHS 12/17/201407/28 Inactive [SAVINGS FOR NON-COVERED DRUGS -- BIN:00 3585, PCN: ASPROD1, Group: XXXXX, ID# [id number], Questions: . THIS IS NOT INSURANCE.] Coreg 6.25 mg tablet RxNorm: 068040 1 Tablet(s) PO BID 12/17/2014 Inactive [SAVINGS FOR NON-COVERED DRUGS -- BIN:00 3585, PCN: ASPROD1, Group: XXXXX, ID# [id number], Questions: . THIS IS NOT INSURANCE.] Plavix 75 mg tablet RxNorm: 242909 1 Tablet(s) PO QD 12/17/201403/16 Inactive [SAVINGS FOR NON-COVERED DRUGS -- BIN:00 3585, PCN: ASPROD1, Group: XXXXX, ID# XXXXXXX, Questions: . THIS IS NOT INSURANCE.] cyclobenzaprine 10 mg tablet RxNorm: 539335 1 Tablet(s) PO TID as needed for spasm 12/17/2014 03/16/2015 Inactive [SAVINGS FOR NON -COVERED DRUGS -- BIN:649718, PCN: ASPROD1, Group: XXXXX, ID# XXXXXXX, Questions: . THIS IS NOT INSURANCE.] Coreg 6.25 mg tablet RxNorm: 345883 1 Tablet(s) PO BID 10/21/201409/2014 Inactive [SAVINGS FOR NON-COVERED DRUGS -- BIN:00 3585, PCN: ASPROD1, Group: XXXXX, ID# XXXXXXX, Questions: . THIS IS NOT INSURANCE.] Plavix 75 mg tablet RxNorm: 242570 1 Tablet(s) PO QD 10/21/201412/16 Inactive [SAVINGS FOR NON-COVERED DRUGS -- BIN:00 3585, PCN: ASPROD1, Group: XXXXX, ID# XXXXXXX, Questions: . THIS IS NOT INSURANCE.] Plavix 75 mg tablet RxNorm: 601906 1 Tablet(s) PO QD Ne eds routine check up--last seen March 2012 09/21/2014 10/20/2014 Inactive [SAVINGS FOR UNINSURED PATIENTS -- BIN:838657, PCN: ASPROD1, Group: AME08, ID# [id number], Process claim through [employer], for questions: . THIS IS NOT INSURANCE.] Ambien 5 mg tablet RxNorm: 708722 1 Tablet(s) PO [facility] 09/21/201412/16 Inactive [SAVINGS FOR UNINSURED PATIENTS -- BIN:0 74020, PCN: ASPROD1, Group: AME08, ID# [id number], Process claim through [employer], for questions: . THIS IS NOT INSURANCE.] Coreg 6.25 mg tablet RxNorm: 191021 1 Tablet(s) PO BID 09/21/201411/2014 Inactive [SAVINGS FOR UNINSURED PATIENTS -- BIN:0 73091, PCN: ASPROD1, Group: AME08, ID# [id number], Process claim through [employer], for questions: . THIS IS NOT INSURANCE.] Plavix 75 mg tablet RxNorm: 003994 1 Tablet(s) PO QD Ne eds routine check up--last seen March 2012 08/04/2014 09/02/2014 Inactive [SAVINGS FOR UNINSURED PATIENTS -- BIN:870912, PCN: ASPROD1, Group: AME08, ID# [id number], Process claim through [employer], for questions: . THIS IS NOT INSURANCE.] Plavix 75 mg tablet RxNorm: 691378 1 Tablet(s) PO QD Ne eds routine check up--last seen March 2012 08/03/2014 08/03/2014 Inactive Protonix 40 mg tablet,delayed release RxNorm: 559807 1 Tablet(s ) PO QD 06/08/2014 02/17/2019 Inactive [SAVINGS FOR UNINSUR ED PATIENTS -- BIN:185172, PCN: ASPROD1, Group: AME08, ID# [id number], Process claim through [employer], for questions: . THIS IS NOT INSURANCE.] hydrocodone 10 mg-acetaminophen 325 mg tablet RxNorm: 823822 1 Tablet(s) PO BID as needed for pain 02/18/2014 03/31/2015 Inactive Coreg 6.25 mg tablet RxNorm: 570499 1 Tablet(s) PO BID 02/02/2014 Inactive Protonix 40 mg granules delayed-release packet RxNorm: 306865 1 Tablet(s) PO QD 01/13/2014 06/08/2014 Inactive Plavix 75 mg tablet RxNorm: 726145 1 Tablet(s) PO QD Ne eds routine check up--last seen March 2012 01/13/2014 08/02/2014 Inactive Plavix 75 mg tablet RxNorm: 728563 1 Tablet(s) PO QD Ne eds routine check up--last seen March 2012 12/09/2013 01/07/2014 Inactive Coreg 6.25 mg tablet RxNorm: 982440 1 Tablet(s) PO BID 12/09/2013 Inactive Cymbalta 60 mg capsule,delayed release RxNorm: 304094 1 Capsule (s) PO QD 10/31/2013 01/12/2014 Inactive Coreg 6.25 mg tablet RxNorm: 856513 1 Tablet(s) PO BID 10/31/2013 Inactive Plavix 75 mg tablet RxNorm: 795173 1 Tablet(s) PO QD Ne eds routine check up--last seen March 2012 10/31/2013 11/29/2013 Inactive Coreg 6.25 mg tablet RxNorm: 121936 1 Tablet(s) PO BID 10/31/2013 Inactive atorvastatin 40 mg tablet RxNorm: 040372 1 Tablet(s) PO QD 10/31/19 14 03/31/2015 Inactive Plavix 75 mg tablet RxNorm: 124113 1 Tablet(s) PO QD Ne eds routine check up--last seen March 2012 09/23/2013 10/30/2013 Inactive cyclobenzaprine 10 mg tablet RxNorm: 677557 1 Tablet(s) PO TID as needed for spasm 09/23/2013 No Stop Date Active cyclobenzaprine 10 mg tablet RxNorm: 358141 1 Tablet(s) PO TID as needed for spasm 07/04/2013 09/22/2013 Inactive atorvastatin 40 mg tablet RxNorm: 266058 1 Tablet(s) PO QD 06/23/20 13 10/30/2013 Inactive atorvastatin 40 mg tablet RxNorm: 171462 1 Tablet(s) PO QD 04/22/20 13 06/22/2013 Inactive Nucynta 50 mg tablet RxNorm: 411036 1-2 Tablet(s) PO Q6H as nee ded for pain 01/01/2013 01/12/2014 Inactive Ambien 5 mg tablet RxNorm: 636688 1 Tablet(s) PO QHS 10/16/201201/13 Inactive Plavix 75 mg tablet RxNorm: 101626 1 Tablet(s) PO QD 09/19/201209/13 Inactive Protonix 40 mg tablet,delayed release RxNorm: 747878 1 Tablet(s ) PO QD 09/19/2012 09/18/2012 Inactive simvastatin 40 mg tablet RxNorm: 692093 1 Tablet(s) PO QD 09/19/2012 02/23/2013 Inactive Protonix 40 mg tablet,delayed release RxNorm: 080852 1 Tablet(s ) PO QD 09/19/2012 09/13/2013 Inactive Ultram 50 mg tablet RxNorm: 505757 1-2 Tablet(s) PO QID as need ed for pain 09/19/2012 02/26/2017 Inactive propranolol 80 mg tablet RxNorm: 918861 1 Tablet(s) PO QHS 09/19/19 13 09/18/2012 Inactive Cymbalta 60 mg capsule,delayed release RxNorm: 080086 1 Capsule (s) PO QD 09/19/2012 09/18/2012 Inactive Cymbalta 60 mg capsule,delayed release RxNorm: 549562 1 Capsule (s) PO QD 09/19/2012 03/17/2013 Inactive propranolol 80 mg tablet RxNorm: 689649 1 Tablet(s) PO QHS 09/19/19 13 02/23/2013 Inactive hydrocodone-acetaminophen 10 mg-325 mg tablet RxNorm: 711243 2 1-2 Tablet(s) PO QID 07/25/2012 02/23/2013 Inactive Ambien 10 mg tablet RxNorm: 582155 1 Tablet(s) PO QHS as needed for sleep 07/10/2012 01/27/2013 Inactive propranolol 80 mg tablet RxNorm: 283586 1 Tablet(s) PO QHS 05/13/20 12 09/18/2012 Inactive hydrocodone-acetaminophen 10 mg-325 mg tablet RxNorm: 976465 2 1-2 Tablet(s) PO QID 05/02/2012 No Stop Date Active Restoril 15 mg Cap RxNorm: 544537 1-2 Capsule(s) PO QHS 05/02/2012 Inactive propranolol 80 mg tablet RxNorm: 989803 1 Tablet(s) PO QHS 05/02/20 12 05/12/2012 Inactive Chantix Starting Month Box 0.5 mg (11)-1 mg (42) Tabs in a Dose Pack RxNorm: 078476 Tablet(s) PO As Directed 04/01/2012 01/27/2013 Inactive simvastatin 40 mg tablet RxNorm: 230367 1 Tablet(s) PO QD 03/28/2012 09/18/2012 Inactive simvastatin 40 mg Tab RxNorm: 980750 1 Tablet(s) PO QD 03/22/201207/2012 Inactive Effient 10 mg Tab RxNorm: 953018 1 Tablet(s) PO QD 03/22/2012 012 Inactive Prilosec 40 mg Capsule, delayed release RxNorm: 121648 1 Capsul e(s) PO QD 03/22/2012 09/18/2012 Inactive Prilosec 40 mg Capsule, delayed release RxNorm: 300382 1 Capsul e(s) PO QD 03/19/2012 03/21/2012 Inactive Cymbalta 60 mg capsule,delayed release RxNorm: 375419 1 Capsule (s) PO QD 03/04/2012 08/30/2012 Inactive hydrocodone-acetaminophen 10 mg-325 mg Tab RxNorm: 5941021 1-2 T ablet(s) PO QID 01/23/2012 No Stop Date Active Cymbalta 60 mg Capsule, delayed release RxNorm: 572767 1 Capsul e(s) PO QD 01/23/2012 03/03/2012 Inactive Cipro 500 mg Tab RxNorm: 166997 1 Tablet(s) PO BID 12/20/2011 012 Inactive Cymbalta 60 mg Capsule, delayed release RxNorm: 455378 1 Capsul e(s) PO QD 12/13/2011 01/22/2012 Inactive nortriptyline 75 mg Cap RxNorm: 693129 1 Capsule(s) PO QHS 11/29/1904/02/2012 Inactive Cymbalta 60 mg Cap RxNorm: 644874 1 Capsule(s) PO QD 10/24/201112/11 Inactive propranolol 80 mg Tab RxNorm: 262873 1 Tablet(s) PO QHS 10/24/2011 Inactive hydrocodone-acetaminophen 10 mg-325 mg Tab RxNorm: 7668943 1-2 T ablet(s) PO QID 09/29/2011 No Stop Date Active hydrocodone-acetaminophen 10 mg-325 mg Tab RxNorm: 1483504 1-2 T ablet(s) PO QID 07/25/2011 No Stop Date Active hydrocodone-acetaminophen 10 mg-325 mg Tab RxNorm: 2509559 1-2 T ablet(s) PO QID 02/14/2011 No Stop Date Active Prilosec 40 mg Cap RxNorm: 860482 1 Capsule(s) PO 01/03/2011 04/28/20 19 Inactive nortriptyline 75 mg Cap RxNorm: 936880 1 Capsule(s) PO QHS 01/04/20 11 07/01/2011 Inactive Neurontin 600 mg Tab RxNorm: 198075 1 Tablet(s) PO QHS 12/08/201011/2011 Inactive hydrocodone-acetaminophen 5 mg-500 mg Tab RxNorm: 068435 2 Tablet(s) PO Q4-6H prn 10/20/2010 01/08/2011 Inactive Diltzac ER 240 mg Cap RxNorm: 032471 1 Capsule(s) PO QD 07/14/2010 Inactive Nortriptyline 75 mg Cap RxNorm: 170116 1 Capsule(s) PO QHS 05/09/20 10 01/12/2019 Inactive Neurontin 600 mg Tab RxNorm: 334827 1 Tablet(s) PO QD 03/17/201012/17 Inactive Nortriptyline 75 mg Cap RxNorm: 509502 1 Capsule(s) PO 01/12/2010 Inactive Nortriptyline 50 mg Cap RxNorm: 238572 1 Capsule(s) PO QHS 01/13/20 10 01/11/2010 Inactive Diltzac ER 240 mg Cap RxNorm: 266124 1 Capsule(s) PO QD 12/06/2009 Inactive aspirin 81 mg Tab RxNorm: 794103 1 Tablet(s) PO QD No Start Date Active Vitamin D3 2,000 unit tablet RxNorm: 801815 1 Tablet(s) PO QD No Star t Date Active Lyrica 75 mg capsule RxNorm: 898942 1 Capsule(s) PO QHS No Start Date Active mwxjnutky-zexcqvzhi-yukjnu complex no.233 oral RxNorm: oral No Start Date Active primidone 50 mg tablet RxNorm: 630572 2 Tablet(s) PO BID No Start Date Active Prilosec 40 mg Capsule, delayed release RxNorm: 585078 1 Capsul e(s) PO QD No Start Date 03/18/2012 Inactive Prilosec 20 mg Cap RxNorm: 199549 1 Capsule(s) PO QHS No Start Date 0 01/02/2011 Inactive primidone 50 mg tablet RxNorm: 930718 1/2 Tablet(s) PO QHS for 1week then go full tab if needed No Start Date 05/01/2017 Inactive ProAir HFA 90 mcg/actuation aerosol inhaler RxNorm: 663459 2 Puff(s) INH Q4H as needed No Start Date 10/29/2017 Inactive clonazepam 0.5 mg tablet RxNorm: 102883 1/2 Tablet(s) PO BID No Sta rt Date 02/12/2017 Inactive Pepcid AC 10 mg Tab RxNorm: 997155 1 Tablet(s) PO QAM No Start Date 0 02/19/2011 Inactive Coreg Oral RxNorm: Oral No Start Date 01/12/2014 Inactive primidone 50 mg tablet RxNorm: 382097 1/2 Tablet(s) PO QD for 7 days then increase to 1 tablet at bedtime No Start Date 01/08/2017 Inactive Medrol (Jose) 4 mg tablets in a dose pack RxNorm: 354622 Tablet(s) PO As Directed No Start Date 01/12/2016 Inactive Plavix 75 mg tablet RxNorm: 772679 1 Tablet(s) PO QD No Start Date Inactive cyclobenzaprine 10 mg tablet RxNorm: 259313 1 Tablet(s) PO TID as needed for spasm No Start Date 07/03/2013 Inactive Bevespi Aerosphere 9 mcg-4.8 mcg HFA aerosol inhaler RxNorm: 4897622 2 Puff(s) INH BID No Start Date 02/18/2019 Inactive tramadol 50 mg tablet RxNorm: 625618 1-2 Tablet(s) PO TID as ne eded for pain No Start Date 01/12/2019 Inactive clonazepam 1 mg tablet RxNorm: 676019 1 Tablet(s) PO QAM No Start D ate 09/18/2018 Inactive hydrocodone-acetaminophen 5 mg-500 mg Tab RxNorm: 416336 2 Tablet(s) PO Q4-6H prn No Start Date 10/19/2010 Inactive lisinopril 20 mg Tab RxNorm: 725380 1/2 Tablet(s) PO QD No Start Da te 03/12/2011 Inactive Protonix 40 mg tablet,delayed release RxNorm: 006484 1 Tablet(s ) PO QD No Start Date 06/07/2014 Inactive Lipitor Oral RxNorm: Oral No Start Date 01/12/2014 Inactive primidone 50 mg tablet RxNorm: 039212 2 Tablet(s) PO QAM and 1 tablet at HS No Start Date 02/17/2019 Inactive hydrocodone-acetaminophen 10 mg-325 mg Tab RxNorm: 0846189 1-2 T ablet(s) PO QID No Start Date 02/13/2011 Inactive Ultram 50 mg tablet RxNorm: 001153 1-2 Tablet(s) PO QID as need ed for pain No Start Date 09/18/2012 Inactive Effient 10 mg Tab RxNorm: 366202 1 Tablet(s) PO QD No Start Date 01/2012 Inactive Bevespi Aerosphere 9 mcg-4.8 mcg HFA aerosol inhaler RxNorm: 4577911 2 Puff(s) INH BID No Start Date 10/29/2017 Inactive Neurontin Oral RxNorm: Oral No Start Date 01/12/2010 Inactive primidone 50 mg tablet RxNorm: 014148 1 Tablet(s) PO QD No Start Da te 01/12/2019 Inactive Chantix Starting Month Box 0.5 mg (11)-1 mg (42) Tabs in a Dose Pack RxNorm: 939206 Tablet(s) PO No Start Date 03/31/2012 Inactive atenolol 25 mg Tab RxNorm: 929938 1 Tablet(s) PO QD No Start Date 02/2012 Inactive Neurontin 600 mg Tab RxNorm: 478001 1 Tablet(s) PO QD No Start Date 0 03/16/2010 Inactive Nucynta 50 mg tablet RxNorm: 697149 1-2 Tablet(s) PO Q6H as nee ded for pain No Start Date 12/31/2012 Inactive simvastatin 40 mg Tab RxNorm: 608551 1 Tablet(s) PO QD No Start Date 03/21/2012 Inactive Medication Administered No Medication Administered data Immunizations Vaccine Codes Date Status Influenza CVX: 135 07/04/2017 Complete Results Observation Observation Code Item Item Code Result Date [facility] Location COMPLETE BLOOD COUNT [id number] WBC 4.9 10e9/L 09/04/20 18 Unknown COMPLETE BLOOD COUNT [id number] RBC 4.42 10e12/L 2017 Unknown COMPLETE BLOOD COUNT [id number] HEMOGLOBIN 13.4 g/dL 09/04/20 18 Unknown COMPLETE BLOOD COUNT [id number] HEMATOCRIT 40.5 % 09/04/20 18 Unknown COMPLETE BLOOD COUNT [id number] MCV 91.6 fL 8 Unknown COMPLETE BLOOD COUNT 0624554 MCH 30.3 pg 8 Unknown COMPLETE BLOOD COUNT 5145798 MCHC 33.1 g/dL 8 Unknown COMPLETE BLOOD COUNT [id number] PLATELET COUNT 224 10e9/L Unknown COMPLETE BLOOD COUNT 9945014 Mean Plt Volume 9.9 fL Unknown COMPLETE BLOOD COUNT 0354972 Neut Auto 60.8 % 8 Unknown COMPLETE BLOOD COUNT [id number] Lymph Auto 26.8 % 09/04/20 18 Unknown COMPLETE BLOOD COUNT 8469134 Hinds Auto 10.4 % 8 Unknown COMPLETE BLOOD COUNT 0225848 RDW 12.8 % 8 Unknown COMPLETE BLOOD COUNT 6144431 Eos Auto 1.6 % 8 Unknown COMPLETE BLOOD COUNT [id number] Baso Auto 0.4 % 8 Unknown COMPLETE BLOOD COUNT [id number] Neutrophil Abs 2.98 10e9/L Unknown COMPLETE BLOOD COUNT [id number] Lymphocyte Abs 1.31 10e9/L Unknown COMPLETE BLOOD COUNT [id number] Monocyte Abs 0.51 10e9/L 08/17 Unknown COMPLETE BLOOD COUNT 3287484 Eosinophil Abs 0.08 10e9/L Unknown COMPLETE BLOOD COUNT [id number] RDW-SD 41.6 fL 8 Unknown COMPLETE BLOOD COUNT [id number] Basophil Abs 0.02 10e9/L 08/17 Unknown COMPREHENSIVE METABOLIC 90486 AST 16 U/L 2017 Unknown COMPREHENSIVE METABOLIC 43650 ALT 8 U/L 2017 Unknown COMPREHENSIVE METABOLIC 91468 BUN 12 mg/dL 2017 Unknown COMPREHENSIVE METABOLIC 37170 ALBUMIN 4.4 g/dL 2017 Unknown COMPREHENSIVE METABOLIC 94572 CHLORIDE 107 mmol/L 09/04 Unknown COMPREHENSIVE METABOLIC 26620 Bili Total 1.0 mg/dL 09/04 Unknown COMPREHENSIVE METABOLIC 36677 ALK PHOS 58 U/L 2017 Unknown COMPREHENSIVE METABOLIC 97134 SODIUM 142 mmol/L 09/04 Unknown COMPREHENSIVE METABOLIC 26581 CREATININE 0.97 mg/dL 08/17 Unknown COMPREHENSIVE METABOLIC 19562 CALCIUM 9.2 mg/dL 2017 Unknown COMPREHENSIVE METABOLIC 64794 POTASSIUM 4.6 mmol/L 09/04 Unknown COMPREHENSIVE METABOLIC 87938 Total Protein 6.5 g/dL Unknown COMPREHENSIVE METABOLIC 49677 Glucose 96 mg/dL 2017 Unknown COMPREHENSIVE METABOLIC 24595 Bicarbonate 29 mmol/L 08/17 Unknown COMPREHENSIVE METABOLIC 89461 AGAP 6 mmol/L 2017 Unknown LIPID GROUP 93281 Cholesterol 182 mg/dL 09/04/2018 Unkno wn LIPID GROUP 90832 Triglyceride 84 mg/dL 09/04/2018 Unkn own LIPID GROUP 87282 HDL CHOLESTEROL 76 mg/dL 09/04/2018 U nknown LIPID GROUP 54383 Chol/HDL Ratio 2.39 ratio 09/04/2018 U nknown LIPID GROUP 61367 NON-HDL Chol 106 mg/dL 09/04/2018 Unkn own LIPID GROUP 11819 LDL Cholesterol 89 mg/dL 09/04/2018 U nknown GFR CALC 6697580 GFR Non Afr Amr >60 mL/min 09/04/2018 Un known GFR CALC 4081927 GFR Afr Amr >60 mL/min 09/04/2018 Unknow n THYROID STIMULATING HORMONE 69418 TSH 0.713 uIU/mL 09/04/2018 Unknown PSA EQUIMOLAR BARBIE 89410 PSA Total 0.66 ng/mL 8 Unknown A FOOD C P 6346086 [place] Cl Class 0 11/17/2017 Unknown A FOOD C P 7897170 [place] Ct <0.35 kU/L 11/17/2017 Unknow n A FOOD C P 0626182 [place] Cl Class 0 11/17/2017 Unkn own A FOOD C P [id number] [place] Ct <0.35 kU/L 11/17/2017 Unk nown A FOOD C P 8877136 Egg White Cl Class 0 11/17/2017 Unkno wn A FOOD C P 7750728 Egg White Ct <0.35 kU/L 11/17/2017 Unkn own A FOOD C P 8133527 Egg Yolk Cl Class 0 11/17/2017 Unknow n A FOOD C P 5989466 Egg Yolk Ct <0.35 kU/L 11/17/2017 Unkno wn A FOOD C P 3026957 Cow Milk Cl Class 0 11/17/2017 Unknow n A FOOD C P 0686385 Cow Milk Ct <0.35 kU/L 11/17/2017 Unkno wn A FOOD C P 3666487 Peanut Cl Class 0 11/17/2017 Unknown A FOOD C P 2395311 Peanut Ct <0.35 kU/L 11/17/2017 Unknown A FOOD C P 1250083 Shrimp Cl Class 0 11/17/2017 Unknown A FOOD C P 8395654 Shrimp Ct <0.35 kU/L 11/17/2017 Unknown A FOOD C P 5562295 [place] Cl Class 0 11/17/2017 Unknown A FOOD C P 8078990 [place] Ct <0.35 kU/L 11/17/2017 Unknow n A FOOD C P 9854432 Wheat Cl Class 0 11/17/2017 Unknown A FOOD C P 4842010 Wheat Ct <0.35 kU/L 11/17/2017 Unknown A FOOD C P 6496039 Potato Cl Class 0 11/17/2017 Unknown A FOOD C P 8486089 Potato Ct <0.35 kU/L 11/17/2017 Unknown A FOOD C P 4627600 Beef Cl Class 2 11/17/2017 Unknown A FOOD C P 7965271 Beef Ct 0.88 kU/L 11/17/2017 Unknown A FOOD C P 3375859 [place] Cl Class 0 11/17/2017 Unknown A FOOD C P 8684032 [place] Ct <0.35 kU/L 11/17/2017 Unknown A FOOD C P 8810697 Pork Cl Class 0 11/17/2017 Unknown A FOOD C P 3306473 Pork Ct <0.35 kU/L 11/17/2017 Unknown A FOOD C P 4501898 [place] Cl Class 0 11/17/2017 Unknown A FOOD C P 3282048 [place] Ct <0.35 kU/L 11/17/2017 Unknown A FOOD C P 3000015 [place] Cl Class 0 11/17/2017 Unkn own A FOOD C P 5494220 [place] Ct <0.35 kU/L 11/17/2017 Unk nown A FOOD C P 2646812 Tom[place] Cl Class 0 11/17/2017 Unknown A FOOD C P 0070408 Tomato Ct <0.35 kU/L 11/17/2017 Unknown A FOOD C P 6244090 [place] Cl Class 0 11/17/2017 Unknown A FOOD C P 3075738 Tuna Ct <0.35 kU/L 11/17/2017 Unknown A FOOD C P 4474860 [place] [facility] Class 0 11/17/2017 Unknown A FOOD C P 0379049 [place] <0.35 kU/L 11/17/2017 Unknown A FOOD C P 1668427 [place] Cl Class 0 11/17/2017 Unknown A FOOD C P 1851744 [place] Ct <0.35 kU/L 11/17/2017 Unknown A FOOD C P 5022534 Oat Cl Class 0 11/17/2017 Unknown A FOOD C P 8168767 Oat Ct <0.35 kU/L 11/17/2017 Unknown A FOOD C P 2378035 [place] Cl Class 0 11/17/2017 Unknown A FOOD C P 9990111 [place] Ct <0.35 kU/L 11/17/2017 Unknown A FOOD C P 6883477 [place] Meat CL Class 0 11/17/2017 Un known A FOOD C P 6127511 Chicken Meat Ct <0.35 kU/L 11/17/2017 U nknown A FOOD C P 9099089 [place] Cl Class 0 11/17/2017 Unknown A FOOD C P 1420279 [place] Ct <0.35 kU/L 11/17/2017 Unknown A FOOD C P 3621109 [place] Meat Cl Class 0 11/17/2017 Unkn own A FOOD C P 9215297 [place]ec[place] Meat Ct <0.35 kU/L 11/17/2017 Unk nown A NUTS PNL 9915005 Peanut Cl Class 0 11/17/2017 Unknown A NUTS PNL 8859365 Peanut Ct <0.35 kU/L 11/17/2017 Unknown A NUTS PNL 6221048 [place] Meat Cl Class 0 11/17/2017 Unk nown A NUTS PNL 3668154 [place] [facility] <0.35 kU/L 11/17/2017 Un known A NUTS PNL 0426217 [place] Meat Cl Class 0 11/17/2017 Unkn own A NUTS PNL 6401603 [place] Ct <0.35 kU/L 11/17/2017 Unk nown A NUTS PNL 7102842 [place] Cl Class 0 11/17/2017 Unknown A NUTS PNL 7072189 [place] Ct <0.35 kU/L 11/17/2017 Unknown A NUTS PNL 4776551 [place] Cl Class 0 11/17/2017 Unknow n A NUTS PNL 1558697 [place] Ct <0.35 kU/L 11/17/2017 Unkno wn A NUTS PNL 0793491 [place] Cl Class 0 11/17/2017 Unkno wn A NUTS PNL 5514275 [place] Ct <0.35 kU/L 11/17/2017 Unkn own A NUTS PNL 7651365 [place] Cl Class 0 11/17/2017 Unknown A NUTS PNL 9697709 [place] Ct <0.35 kU/L 11/17/2017 Unknown A NUTS PNL 4645774 [place] Cl Class 0 11/17/2017 Unkno wn A NUTS PNL 5401057 [place] Ct <0.35 kU/L 11/17/2017 Unkn own A NUTS PNL 3960370 Allergen Interp See Note 11/17/2017 Un known A FRT/VG P 7926015 [place] Cl Class 0 11/17/2017 Unkn own A FRT/VG P 7371052 [place] Ct <0.35 kU/L 11/17/2017 Unk nown A FRT/VG P 7235265 Pot[place] Cl Class 0 11/17/2017 Unknown A FRT/VG P 3893519 [place]ato Ct <0.35 kU/L 11/17/2017 Unknown A FRT/VG P 5692171 [place] Cl Class 0 11/17/2017 Unkn own A FRT/VG P 9860496 [place] Ct <0.35 kU/L 11/17/2017 Unk nown A FRT/VG P 8862801 [place] Cl Class 0 11/17/2017 Unknown A FRT/VG P 3635851 [place] Ct <0.35 kU/L 11/17/2017 Unknown A FRT/VG P 4170291 [place] Cl Class 0 11/17/2017 Unknown A FRT/VG P 9519562 [place] Ct <0.35 kU/L 11/17/2017 Unknown A FRT/VG P 5131995 [place] Cl Class 1 11/17/2017 Unknown A FRT/VG P 4510860 [place] Ct 0.48 kU/L 11/17/2017 Unknown A FRT/VG P 8441837 [place] Fruit Cl Class 0 11/17/2017 Unk nown A FRT/VG P 0479570 [place] Ct <0.35 kU/L 11/17/2017 Un known A FRT/VG P 5966571 [place] Fruit Cl Class 0 11/17/2017 Unk nown A FRT/VG P 6454867 [place] Ct <0.35 kU/L 11/17/2017 Un known A FRT/VG P 1171298 [place] Cl Class 0 11/17/2017 Unknown A FRT/VG P 0407326 [place] Ct <0.35 kU/L 11/17/2017 Unknown A FRT/VG P 2978319 [place] Cl Class 0 11/17/2017 Unknown A FRT/VG P 6363019 [place]a Ct <0.35 kU/L 11/17/2017 Unknown A FRT/VG P 0394258 [place] Fruit Cl Class 0 11/17/2017 Unkn own A FRT/VG P 2844356 [place] Ct <0.35 kU/L 11/17/2017 Unk nown A FRT/VG P 6369563 Swt [place] Cl Class 0 11/17/2017 Unkn own A FRT/VG P 0041961 Swt [place] Ct <0.35 kU/L 11/17/2017 Unk nown THYROID STIMULATING HORMONE 44918 TSH 1.371 uIU/mL 09/03/2017 Unknown FREE T4 31499 T4 Free 1.26 ng/dL 09/03/2017 Unknown ASSAY TRIIODOTHYRONINE (T3) 23101 T3 Total 0.9 ng/mL Unknown COMPLETE BLOOD COUNT [id number] WBC 5.9 10e9/L 07/31/20 17 Unknown COMPLETE BLOOD COUNT [id number] RBC 4.64 10e12/L 2016 Unknown COMPLETE BLOOD COUNT 0118458 HEMOGLOBIN 14.2 g/dL 07/31/20 17 Unknown COMPLETE BLOOD COUNT 6698052 HEMATOCRIT 42.1 % 07/31/20 17 Unknown COMPLETE BLOOD COUNT 2086659 MCV 90.7 fL 7 Unknown COMPLETE BLOOD COUNT 7129187 MCH 30.6 pg 7 Unknown COMPLETE BLOOD COUNT 2138881 MCHC 33.7 g/dL 7 Unknown COMPLETE BLOOD COUNT 8830125 PLATELET COUNT 195 10e9/L Unknown COMPLETE BLOOD COUNT 7461261 Mean Plt Volume 10.0 fL Unknown COMPLETE BLOOD COUNT 4885966 Neut Auto 47.5 % 7 Unknown COMPLETE BLOOD COUNT 5557467 Lymph Auto 37.4 % 07/31/20 17 Unknown COMPLETE BLOOD COUNT 1358463 Hinds Auto 11.7 % 7 Unknown COMPLETE BLOOD COUNT 1488597 Eos Auto 3.2 % 7 Unknown COMPLETE BLOOD COUNT 5981476 RDW 12.8 % 7 Unknown COMPLETE BLOOD COUNT 9215780 Baso Auto 0.2 % 7 Unknown COMPLETE BLOOD COUNT 1082274 Neutrophil Abs 2.80 10e9/L Unknown COMPLETE BLOOD COUNT 4925130 Lymphocyte Abs 2.21 10e9/L Unknown COMPLETE BLOOD COUNT 2896826 Monocyte Abs 0.69 10e9/L 07/18 Unknown COMPLETE BLOOD COUNT [id number] Eosinophil Abs 0.19 10e9/L Unknown COMPLETE BLOOD COUNT 1117572 RDW-SD 41.6 fL 7 Unknown COMPLETE BLOOD COUNT 6894619 Basophil Abs 0.01 10e9/L 07/18 Unknown LIPID GROUP 14719 Cholesterol 186 mg/dL 07/31/2017 Unkno wn LIPID GROUP 23552 Triglyceride 129 mg/dL 07/31/2017 Unkn own LIPID GROUP 36837 HDL CHOLESTEROL 79 mg/dL 07/31/2017 U nknown LIPID GROUP 68095 Chol/HDL Ratio 2.35 ratio 07/31/2017 U nknown LIPID GROUP 16561 NON-HDL Chol 107 mg/dL 07/31/2017 Unkn own LIPID GROUP 32756 LDL Cholesterol 81 mg/dL 07/31/2017 U nknown GFR CALC 4719012 GFR Non Afr Amr >60 mL/min 07/31/2017 Un known GFR CALC 5251221 GFR Afr Amr >60 mL/min 07/31/2017 Unknow n COMPREHENSIVE METABOLIC 68266 AST 19 U/L 2016 Unknown COMPREHENSIVE METABOLIC 88226 ALT 12 U/L 2016 Unknown COMPREHENSIVE METABOLIC 09324 BUN 15 mg/dL 2016 Unknown COMPREHENSIVE METABOLIC 76474 ALBUMIN 4.4 g/dL 2016 Unknown COMPREHENSIVE METABOLIC 04607 CHLORIDE 102 mmol/L 07/31 Unknown COMPREHENSIVE METABOLIC 49593 Bili Total 0.9 mg/dL 07/31 Unknown COMPREHENSIVE METABOLIC 59584 ALK PHOS 53 U/L 2016 Unknown COMPREHENSIVE METABOLIC 55006 SODIUM 138 mmol/L 07/31 Unknown COMPREHENSIVE METABOLIC 44071 CREATININE 1.06 mg/dL 07/18 Unknown COMPREHENSIVE METABOLIC 86817 CALCIUM 9.3 mg/dL 2016 Unknown COMPREHENSIVE METABOLIC 35292 POTASSIUM 4.0 mmol/L 07/31 Unknown COMPREHENSIVE METABOLIC 79866 Total Protein 6.8 g/dL Unknown COMPREHENSIVE METABOLIC 90144 Glucose 86 mg/dL 2016 Unknown COMPREHENSIVE METABOLIC 64919 Bicarbonate 28 mmol/L 07/18 Unknown COMPREHENSIVE METABOLIC 17217 AGAP 8 mmol/L 2016 Unknown COMPREHENSIVE METABOLIC 61385 AST 18 U/L 2015 Unknown COMPREHENSIVE METABOLIC 39620 ALT 9 U/L 2015 Unknown COMPREHENSIVE METABOLIC 36215 BUN 11 mg/dL 2015 Unknown COMPREHENSIVE METABOLIC 90607 ALBUMIN 4.2 g/dL 2015 Unknown COMPREHENSIVE METABOLIC 34209 CHLORIDE 104 mmol/L 05/19 Unknown COMPREHENSIVE METABOLIC 46181 Bili Total 1.2 mg/dL 05/19 Unknown COMPREHENSIVE METABOLIC 62535 ALK PHOS 54 U/L 2015 Unknown COMPREHENSIVE METABOLIC 57478 SODIUM 140 mmol/L 05/19 Unknown COMPREHENSIVE METABOLIC 89445 CREATININE 1.03 mg/dL 10/2015 Unknown COMPREHENSIVE METABOLIC 41557 CALCIUM 9.3 mg/dL 2015 Unknown COMPREHENSIVE METABOLIC 36099 POTASSIUM 4.9 mmol/L 05/19 Unknown COMPREHENSIVE METABOLIC 17881 Total Protein 6.7 g/dL Unknown COMPREHENSIVE METABOLIC 88167 Glucose 92 mg/dL 2015 Unknown COMPREHENSIVE METABOLIC 08326 Bicarbonate 28 mmol/L 10/2015 Unknown COMPREHENSIVE METABOLIC 55367 AGAP 8 mmol/L 2015 Unknown THYROID STIMULATING HORMONE 96109 TSH 1.545 uIU/mL 05/19/2016 Unknown GFR CALC 9695856 GFR Non Afr Amr >60 mL/min 05/19/2016 Un known GFR CALC 2759225 GFR Afr Amr >60 mL/min 05/19/2016 Unknow n VITAMIN B 12 66206 VITAMIN B12 298 pg/mL 05/19/2016 Unkn own COMPLETE BLOOD COUNT [id number] WBC 5.2 10e9/L 05/19/20 16 Unknown COMPLETE BLOOD COUNT 2181972 RBC 4.34 10e12/L 2015 Unknown COMPLETE BLOOD COUNT 0553703 HEMOGLOBIN 12.9 g/dL 05/19/20 16 Unknown COMPLETE BLOOD COUNT 4926934 HEMATOCRIT 38.9 % 05/19/20 16 Unknown COMPLETE BLOOD COUNT 1456832 MCV 89.6 fL 6 Unknown COMPLETE BLOOD COUNT 3599295 MCH 29.7 pg 6 Unknown COMPLETE BLOOD COUNT 5250584 MCHC 33.2 g/dL 6 Unknown COMPLETE BLOOD COUNT 9212773 PLATELET COUNT 200 10e9/L 10/2015 Unknown COMPLETE BLOOD COUNT 7588721 Mean Plt Volume 10.1 fL 10/2015 Unknown COMPLETE BLOOD COUNT 7497619 Neut Auto 45.4 % 6 Unknown COMPLETE BLOOD COUNT 7359853 Lymph Auto 35.6 % 05/19/20 16 Unknown COMPLETE BLOOD COUNT 0370126 Hinds Auto 11.9 % 6 Unknown COMPLETE BLOOD COUNT 1581634 RDW 12.7 % 6 Unknown COMPLETE BLOOD COUNT 7572681 Eos Auto 6.7 % 6 Unknown COMPLETE BLOOD COUNT 3046184 Baso Auto 0.4 % 6 Unknown COMPLETE BLOOD COUNT 3360913 Neutrophil Abs 2.36 10e9/L Unknown COMPLETE BLOOD COUNT 5573182 Lymphocyte Abs 1.85 10e9/L Unknown COMPLETE BLOOD COUNT 1235618 Monocyte Abs 0.62 10e9/L 10/2015 Unknown COMPLETE BLOOD COUNT 5223609 Eosinophil Abs 0.35 10e9/L Unknown COMPLETE BLOOD COUNT 7603321 RDW-SD 40.6 fL 6 Unknown COMPLETE BLOOD COUNT 5855731 Basophil Abs 0.02 10e9/L 10/2015 Unknown LIPID GROUP 53066 Cholesterol 197 mg/dL 05/19/2016 Unkno wn LIPID GROUP 13799 Triglyceride 92 mg/dL 05/19/2016 Unkn own LIPID GROUP 11092 HDL CHOLESTEROL 58 mg/dL 05/19/2016 U nknown LIPID GROUP 33947 Chol/HDL Ratio 3.40 ratio 05/19/2016 U nknown LIPID GROUP 87513 NON-HDL Chol 139 mg/dL 05/19/2016 Unkn own LIPID GROUP 85864 LDL Cholesterol 121 mg/dL 05/19/2016 U nknown FREE T4 44339 T4 Free 1.19 ng/dL 05/19/2016 Unknown COMPREHENSIVE METABOLIC 81383 AST 19 U/L 2014 Unknown COMPREHENSIVE METABOLIC 72973 ALT 10 IU/L 2014 Unknown COMPREHENSIVE METABOLIC 83059 BUN 20 MG/DL 2014 Unknown COMPREHENSIVE METABOLIC 32733 ALBUMIN 4.4 GM/DL 2014 Unknown COMPREHENSIVE METABOLIC 99829 CHLORIDE 104 MMOL/L 04/05 Unknown COMPREHENSIVE METABOLIC 73700 BILI TOT 2.2 MG/DL 2014 Unknown COMPREHENSIVE METABOLIC 84229 ALK PHOS 55 U/L 2014 Unknown COMPREHENSIVE METABOLIC 30512 SODIUM 138 MMOL/L 04/05 Unknown COMPREHENSIVE METABOLIC 67318 CREATININE 1.04 MG/DL 03/18 Unknown COMPREHENSIVE METABOLIC 65115 CALCIUM 9.3 MG/DL 2014 Unknown COMPREHENSIVE METABOLIC 71977 POTASSIUM 4.5 MMOL/L 04/05 Unknown COMPREHENSIVE METABOLIC 66939 PROT TOT 6.7 GM/DL 2014 Unknown COMPREHENSIVE METABOLIC 56510 Glucose 77 MG/DL 2014 Unknown COMPREHENSIVE METABOLIC 99710 BICARB 25 MMOL/L 2014 Unknown COMPREHENSIVE METABOLIC 51490 ANION GAP 9 MEQ/L 2014 Unknown GFR CALC 3765849 GFR AA >60 ML/MIN 04/05/2015 Unknown GFR CALC 5428147 GFR NON-AA >60 ML/MIN 04/05/2015 Unknown LIPID GROUP 54089 HDL TEST 60 MG/DL 04/05/2015 Unknown LIPID GROUP 64235 TRIG 70 MG/DL 04/05/2015 Unknown LIPID GROUP 65595 TEST LDL 137 MG/DL 04/05/2015 Unknown LIPID GROUP 02283 CHOL 211 MG/DL 04/05/2015 Unknown LIPID GROUP 75739 RCHOL/HDL 3.52 RATIO 04/05/2015 Unknow n LIPID GROUP 76092 NON-HDL CH 151 MG/DL 04/05/2015 Unknow n COMPLETE BLOOD COUNT 1321955 WBC 5.3 10e9/L 04/05/20 15 Unknown COMPLETE BLOOD COUNT 8599411 RBC 4.42 10e12/L 2014 Unknown COMPLETE BLOOD COUNT 6507189 HGB 13.4 g/dL 5 Unknown COMPLETE BLOOD COUNT 1741466 HCT DET 39.6 % 5 Unknown COMPLETE BLOOD COUNT 1221130 MCV 89.6 fL 5 Unknown COMPLETE BLOOD COUNT 9194164 MCH 30.3 pg 5 Unknown COMPLETE BLOOD COUNT 1616199 MCHC 33.8 g/dL 5 Unknown COMPLETE BLOOD COUNT 5663708 PLT 201 10e9/L 04/05/20 15 Unknown COMPLETE BLOOD COUNT 1185653 MPV 10.3 fL 5 Unknown COMPLETE BLOOD COUNT 0995577 LUPE % 56.4 % 5 Unknown COMPLETE BLOOD COUNT 6325219 LY % 24.8 % 5 Unknown COMPLETE BLOOD COUNT 6726766 MON % 12.8 % 5 Unknown COMPLETE BLOOD COUNT 9568256 EOS % 5.4 % 5 Unknown COMPLETE BLOOD COUNT 0928155 BASO % 0.6 % 5 Unknown COMPLETE BLOOD COUNT 7111333 RDW 13.2 % 5 Unknown COMPLETE BLOOD COUNT 6083782 ABS LUPE 2.99 10e9/L 015 Unknown COMPLETE BLOOD COUNT 9747796 ABS LYMPH 1.31 10e9/L 015 Unknown COMPLETE BLOOD COUNT 5647146 ABS MONO 0.68 10e9/L 015 Unknown COMPLETE BLOOD COUNT 5763450 ABS EOS 0.29 10e9/L 015 Unknown COMPLETE BLOOD COUNT 2999245 ABS BASO 0.03 10e9/L 015 Unknown COMPLETE BLOOD COUNT 4179920 RDW-SD 42.3 fL 5 Unknown LIPID GROUP 06578 HDL TEST 51 MG/DL 07/19/2012 Unknown LIPID GROUP 49605 TRIG 129 MG/DL 07/19/2012 Unknown LIPID GROUP 54537 TEST LDL 98 MG/DL 07/19/2012 Unknown LIPID GROUP 32224 CHOL 175 MG/DL 07/19/2012 Unknown LIPID GROUP 11387 RCHOL/HDL 3.43 RATIO 07/19/2012 Unknow n COMPREHENSIVE METABOLIC 61166 AST 18 U/L 2011 Unknown COMPREHENSIVE METABOLIC 60567 ALT 12 IU/L 2011 Unknown COMPREHENSIVE METABOLIC 04017 BUN 10 MG/DL 2011 Unknown COMPREHENSIVE METABOLIC 97884 ALBUMIN 4.1 GM/DL 2011 Unknown COMPREHENSIVE METABOLIC 22354 CHLORIDE 103 MMOL/L 07/19 Unknown COMPREHENSIVE METABOLIC 66873 BILI TOT 0.9 MG/DL 2011 Unknown COMPREHENSIVE METABOLIC 63710 ALK PHOS 62 U/L 2011 Unknown COMPREHENSIVE METABOLIC 63209 SODIUM 138 MMOL/L 07/19 Unknown COMPREHENSIVE METABOLIC 74401 CREATININE 1.08 MG/DL 10/2011 Unknown COMPREHENSIVE METABOLIC 42023 CALCIUM 9.1 MG/DL 2011 Unknown COMPREHENSIVE METABOLIC 92694 POTASSIUM 4.2 MMOL/L 07/19 Unknown COMPREHENSIVE METABOLIC 49376 PROT TOT 6.7 GM/DL 2011 Unknown COMPREHENSIVE METABOLIC 14428 Glucose 101 MG/DL 2011 Unknown COMPREHENSIVE METABOLIC 15961 BICARB 27 MMOL/L 2011 Unknown COMPREHENSIVE METABOLIC 83003 ANION GAP 8 MEQ/L 2011 Unknown GFR CALC 9868429 GFR AA >60 ML/MIN 07/19/2012 Unknown GFR CALC 5127255 GFR NON-AA >60 ML/MIN 07/19/2012 Unknown Procedures Procedure Codes Date THER/PROPH/DIAG INJ SC/IM CPT-4: 16682 01/13/2019 TRIAMCINOLONE ACET INJ NOS CPT-4: J3301 01/13/2019 DEXAMETHASONE SODIUM PHOS CPT-4: J1100 01/13/2019 ROUTINE VENIPUNCTURE CPT-4: 63681 09/04/2018 COMPREHEN METABOLIC PANEL CPT-4: 40633 09/04/2018 COMPLETE CBC W/AUTO DIFF WBC CPT-4: 74451 09/04/2018 LIPID PANEL CPT-4: 53470 09/04/2018 ASSAY OF PSA TOTAL CPT-4: 65812 09/04/2018 ASSAY THYROID STIM HORMONE CPT-4: 70315 09/04/2018 URINALYSIS NONAUTO W/O SCOPE CPT-4: 28076 05/15/2018 ROUTINE VENIPUNCTURE CPT-4: 62863 11/16/2017 A FRT/VG P CPT-4: 4226571 11/16/2017 A FOOD C P CPT-4: 6345040 11/16/2017 A NUTS PNL CPT-4: 2307036 11/16/2017 THER/PROPH/DIAG INJ SC/IM CPT-4: 31773 11/06/2017 TRIAMCINOLONE ACET INJ NOS CPT-4: J3301 11/06/2017 DEXAMETHASONE SODIUM PHOS CPT-4: J1100 11/06/2017 ROUTINE VENIPUNCTURE CPT-4: 70436 09/03/2017 ASSAY OF FREE THYROXINE CPT-4: 27042 09/03/2017 ASSAY THYROID STIM HORMONE CPT-4: 34196 09/03/2017 ASSAY TRIIODOTHYRONINE (T3) CPT-4: 81911 09/03/2017 ROUTINE VENIPUNCTURE CPT-4: 42638 07/31/2017 COMPREHEN METABOLIC PANEL CPT-4: 68667 07/31/2017 COMPLETE CBC W/AUTO DIFF WBC CPT-4: 79000 07/31/2017 LIPID PANEL CPT-4: 89311 07/31/2017 FLU VACC PRSV FREE INC ANTIG 65 AND OLDER CPT-4: 62351 07/04/2017 ADMIN INFLUENZA VIRUS VAC CPT-4: G0008 07/04/2017 ROUTINE VENIPUNCTURE CPT-4: 26511 02/26/2017 ASSAY THYROID STIM HORMONE CPT-4: 97534 02/26/2017 COMPREHEN METABOLIC PANEL CPT-4: 88497 02/26/2017 COMPLETE CBC W/AUTO DIFF WBC CPT-4: 13262 02/26/2017 LIPID PANEL CPT-4: 01280 02/26/2017 ASSAY OF PSA TOTAL CPT-4: 42370 02/26/2017 FLUZONE, 5ML (Medicare) CPT-4: Q2038 06/28/2016 ADMIN INFLUENZA VIRUS VAC CPT-4: G0008 06/28/2016 ROUTINE VENIPUNCTURE CPT-4: 41680 05/19/2016 ASSAY OF FREE THYROXINE CPT-4: 52616 05/19/2016 ASSAY THYROID STIM HORMONE CPT-4: 69313 05/19/2016 COMPREHEN METABOLIC PANEL CPT-4: 82716 05/19/2016 COMPLETE CBC W/AUTO DIFF WBC CPT-4: 82302 05/19/2016 LIPID PANEL CPT-4: 25246 05/19/2016 VITAMIN B-12 CPT-4: 53083 05/19/2016 PPPS, initial visit CPT-4: G0438 05/10/2016 ROUTINE VENIPUNCTURE CPT-4: 78209 04/05/2015 ASSAY THYROID STIM HORMONE CPT-4: 32180 04/05/2015 COMPREHEN METABOLIC PANEL CPT-4: 64326 04/05/2015 COMPLETE CBC W/AUTO DIFF WBC CPT-4: 15469 04/05/2015 LIPID PANEL CPT-4: 39893 04/05/2015 ASSAY OF PSA TOTAL CPT-4: 15780 04/05/2015 ROUTINE VENIPUNCTURE CPT-4: 29634 07/19/2012 COMPREHEN METABOLIC PANEL CPT-4: 27218 07/19/2012 LIPID PANEL CPT-4: 65890 07/19/2012 ELECTROCARDIOGRAM COMPLETE CPT-4: 45853 03/22/2012 Vital Signs Date Vital 09/24/2019 Blood Pressure 1: 125/72 Code: 8480-6 BMI: 19.8 Code: 43272-3 Heart Rate 1: 88 bpm Height: 5'11" [...] 1: 102/60 Code: 8480-6 BMI: 19.1 Code: 10211-6 Heart Rate 1: 82 bpm Height: 5'11" Respiratory Rate: 22 bpm SpO2: 97% Tempera ture: 36.4 (C) / 97.6 (F) Weight: 137 lbs 04/25/2018 Blood Pressure 1: 118/64 Code: 8480-6 BMI: 19.2 Code: 93457-8 Heart Rate 1: 98 bpm Height: 5'11" Respiratory Rate: 20 bpm SpO2: 99% Tempera ture: 36.4 (C) / 97.6 (F) Weight: 138 lbs 11/06/2017 Blood Pressure 1: 108/68 Code: 8480-6 BMI: 18.5 Code: 85037-5 Heart Rate 1: 68 bpm Height: 5'11" Respiratory Rate: 20 bpm SpO2: 96% Tempera ture: 36.8 (C) / 98.2 (F) Weight: 133 lbs 09/03/2017 Blood Pressure 1: 122/64 Code: 8480-6 BMI: 17.6 Code: 64575-6 Heart Rate 1: 90 bpm Height: 5'11" Respiratory Rate: 20 bpm SpO2: 98% Tempera ture: 36.4 (C) / 97.6 (F) Weight: 126 lbs 08/21/2017 Blood Pressure 1: 114/80 Code: 8480-6 BMI: 17.9 Code: 27931-1 Heart Rate 1: 80 bpm Height: 5'11" Respiratory Rate: 20 bpm SpO2: 95% Tempera ture: 36.6 (C) / 97.9 (F) Weight: 128 lbs 02/13/2017 Blood Pressure 1: 122/60 Code: 8480-6 BMI: 18.5 Code: 80772-8 Heart Rate 1: 76 bpm Height: 5'11" Respiratory Rate: 20 bpm SpO2: 96% Tempera ture: 36.9 (C) / 98.4 (F) Weight: 133 lbs 11/23/2016 Blood Pressure 1: 126/70 Code: 8480-6 BMI: 18.5 Code: 29484-1 Heart Rate 1: 100 bpm Height: 5'11" Respiratory Rate: 20 bpm SpO2: 96% Tempera ture: 37.1 (C) / 98.8 (F) Weight: 133 lbs 05/23/2016 Blood Pressure 1: 128/82 Code: 8480-6 BMI: 18.5 Code: 77143-3 Heart Rate 1: 88 bpm Height: 5'11" Respiratory Rate: 20 bpm Temperature: 36 .7 (C) / 98.0 (F) Weight: 133 lbs 05/10/2016 Blood Pressure 1: 146/70 Code: 8480-6 BMI: 18.5 Code: 64584-1 Heart Rate 1: 84 bpm Height: 5'11" Respiratory Rate: 20 bpm Temperature: 36 .7 (C) / 98.1 (F) Weight: 133 lbs 04/01/2015 Blood Pressure 1: 102/60 Code: 8480-6 BMI: 18.5 Code: 06526-2 Heart Rate 1: 64 bpm Height: 5'11" Respiratory Rate: 20 bpm Temperature: 36 .8 (C) / 98.2 (F) Weight: 133 lbs 01/13/2014 Blood Pressure 1: 124/78 Code: 8480-6 BMI: 19.8 Code: 63655-6 Heart Rate 1: 76 bpm Height: 5'11" Respiratory Rate: 20 bpm Temperature: 36 .8 (C) / 98.2 (F) Weight: 142 lbs 04/03/2012 Blood Pressure 1: 106/76 Code: 8480-6 BMI: 20.9 Code: 42573-4 Heart Rate 1: 84 bpm Height: 5'11" Respiratory Rate: 20 bpm Temperature: 36 .7 (C) / 98.0 (F) Weight: 150 lbs 12/20/2011 Blood Pressure 1: 116/60 Code: 8480-6 BMI: 20.1 Code: 15418-0 Heart Rate 1: 80 bpm Height: 5'11" Respiratory Rate: 20 bpm Temperature: 36 .4 (C) / 97.6 (F) Weight: 144 lbs 10/24/2011 Blood Pressure 1: 132/74 Code: 8480-6 BMI: 19.7 Code: 05410-0 Heart Rate 1: 96 bpm Height: 5'11" [...] 04/05/2015 follow up 04/01/2015 follow up 01/13/2014 [facility] from [facility] in November 2012 lab draw 07/19/2012 follow up 04/03/2012 S/P stent placement in LAD, changed effient to plavix hip pain 12/20/2011 dyskinesia or tremor 10/24/2011 follow up 03/13/2011 started on effient, zocor, and atenolol follow up 02/20/2011 Hospital Fwup/Dr Christian rojas follow up 02/23/[address] [facility], appt with Dr Bajwa 03/22/10 insomnia 01/12/2010 problems falling and staying asleep, takes nortriptyline Encounters Encounter Performer Location Codes Date ([id number]) OFFICE/OUTPATIENT VISIT EST Diagnosis: Encounter for therapeutic drug level monitoring[ICD10: Z51.81] Diagnosis: Essential tremor[ICD10: G25.0] Verna Alvarez [facility] [employer] CPT-4: 01403 09/24/2019 ([id number]) OFFICE/OUTPATIENT VISIT EST Diagnosis: Noninfective gastroenteritis and colitis, unspecified[ICD10: K52.9] Diagnosis: Hemorrhage of anus and rectum[ICD10: K62.5] Vonnie Loza [employer] [employer] CPT-4: 10878 05/26/2019 ([id number]) OFFICE/OUTPATIENT VISIT EST Diagnosis: Other intervertebral disc degeneration, 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] Diagnosis: Other forms of dyspnea[ICD10: R06.09] Vonnie Vásquez KARIE Loza [facility] CPT-4: 95968 03/17/2019 OFFICE/OUTPATIENT VISIT EST Diagnosis: Other intervertebral disc degeneration, 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] Diagnosis: Other symptoms and signs involving the musculoskeletal system[ICD10: R29.898] Vonnie Loza [facility] [employer] CPT-4: 35178 02/18/2019 ([id number]) OFFICE/OUTPATIENT VISIT EST Diagnosis: Other allergic rhinitis[ICD10: J30.89] Akilah GASPAR [facility] CPT-4: 35277 01/13/2019 ([id number]) NURSE/OUTPATIENT VISIT EST Diagnosis: Mixed hyperlipidemia[ICD10: E78.2] Diagnosis: Essential (primary) hypertension[ICD10: I10] Diagnosis: Encounter for screening for malignant neoplasm of prostate[ICD10: Z12.5] Diagnosis: Encounter for general adult medical examination with abnormal findings[ICD10: Z00.01] Diagnosis: Benign prostatic hyperplasia without lower urinary tract symptoms[ICD10: N40.0] Vonnie COLMENARES BnookiKim [facility] [employer] CPT-4: 79849 09/04/2018 ([id number]) OFFICE/OUTPATIENT VISIT EST Diagnosis: Otorrhea, left ear[ICD10: H92.12] Diagnosis: Impacted cerumen, right ear[ICD10: H61.21] Verna MATHEWS DO [facility] CPT-4: 91713 09/03/2018 ([id number]) OFFICE/OUTPATIENT VISIT EST Diagnosis: Other intervertebral disc degeneration, 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] Diagnosis: Primary insomnia[ICD10: F51.01] Diagnosis: Essential tremor[ICD10: G25.0] Vonnie MATHEWS DO [facility] CPT-4: 37690 08/26/2018 ([id number]) OFFICE/OUTPATIENT VISIT EST Diagnosis: Pelvic and perineal pain[ICD10: R10.2] Verna MATHEWS [employer] [facility] CPT-4: 68618 05/15/2018 ([id number]) OFFICE/OUTPATIENT VISIT EST Diagnosis: Encounter for therapeutic drug level monitoring[ICD10: Z51.81] Diagnosis: Acute sinusitis, unspecified[ICD10: J01.90] Diagnosis: Other intervertebral disc degeneration, 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] Diagnosis: Essential tremor[ICD10: G25.0] Diagnosis: Raynaud's syndrome without gangrene[ICD10: I73.00] Verna MATHEWS [employer] [facility] CPT-4: 91122 04/25/2018 ([id number]) OFFICE/OUTPATIENT VISIT EST Diagnosis: Idiopathic urticaria[ICD10: L50.1] Diagnosis: Other urticaria[ICD10: L50.8] Vonnie MATHEWS [employer] [facility] CPT-4: 81846 11/16/2017 ([id number]) OFFICE/OUTPATIENT VISIT EST Diagnosis: Idiopathic urticaria[ICD10: L50.1] Diagnosis: Other urticaria[ICD10: L50.8] Diagnosis: Other forms of dyspnea[ICD10: R06.09] Vonnie BREWERNE Denia MATHEWS [employer] [facility] CPT-4: 10127 11/06/2017 ([id number]) OFFICE/OUTPATIENT VISIT EST Diagnosis: Dyspnea, unspecified[ICD10: R06.00] Diagnosis: Abnormal weight loss[ICD10: R63.4] Vonnie LUCIA BnookiKim MATHEWS [employer] CPT-4: 37959 09/03/2017 ([id number]) OFFICE/OUTPATIENT VISIT EST 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] Diagnosis: Mixed hyperlipidemia[ICD10: E78.2] Diagnosis: Essential tremor[ICD10: G25.0] Diagnosis: Essential (primary) hypertension[ICD10: I10] Diagnosis: Abnormal weight loss[ICD10: R63.4] Vonnie Sebastianalyssaranjan RAFAT REA [facility] CPT-4: 64714 08/21/2017 ([id number]) OFFICE/OUTPATIENT VISIT EST Diagnosis: Mixed hyperlipidemia[ICD10: E78.2] Diagnosis: Essential (primary) hypertension[ICD10: I10] 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] Diagnosis: Anemia, unspecified[ICD10: D64.9] Vonnie Orendranjan ASCENCIOMARSHA Galarza Denia [facility] CPT-4: 18915 07/31/2017 ([id number]) OFFICE/OUTPATIENT VISIT EST Diagnosis: FLU VACCINE[ICD10: Z23] Vonnie Sebastianalyssaranjan ASCENCIOVONNIE Denia GERMAN [facility] CPT-4: 79148 07/04/2017 ([id number]) OFFICE/OUTPATIENT VISIT EST Diagnosis: Mixed hyperlipidemia[ICD10: E78.2] Diagnosis: Essential tremor[ICD10: G25.0] 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] Diagnosis: Essential (primary) hypertension[ICD10: I10] Diagnosis: Supraventricular tachycardia[ICD10: I47.1] Diagnosis: Other fatigue[ICD10: R53.83] Diagnosis: Encounter for screening for malignant neoplasm of prostate[ICD10: Z12.5] Vonnie COLMENARES Denia MATHEWS [employer] CPT-4: 78055 02/26/2017 ([id number]) OFFICE/OUTPATIENT VISIT EST Diagnosis: Essential tremor[ICD10: G25.0] Vonnie MATHEWS DO [facility] CPT-4: 53198 02/13/2017 ([id number]) OFFICE/OUTPATIENT VISIT EST Diagnosis: Essential tremor[ICD10: G25.0] Diagnosis: Other intervertebral disc degeneration, 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] Vonnie MATHEWS DO [facility] CPT-4: 19590 11/23/2016 ([id number]) OFFICE/OUTPATIENT VISIT EST Diagnosis: FLU VACCINE[ICD10: Z23] Vonnie GERMAN DO [facility] CPT-4: 96410 06/28/2016 OFFICE/OUTPATIENT VISIT EST Diagnosis: Open bite of right hand, initial encounter[ICD10: S61.451A] Vonnie MATHEWS DO [facility] CPT-4: 76096 05/23/2016 ([id number]) OFFICE/OUTPATIENT VISIT EST Diagnosis: Encounter for general adult medical examination with abnormal findings[ICD10: Z00.01] Diagnosis: Mixed hyperlipidemia[ICD10: E78.2] Diagnosis: Essential tremor[ICD10: G25.0] 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] Vonnie MATHEWS DO [facility] CPT-4: 47553 05/19/2016 ([id number]) OFFICE/OUTPATIENT VISIT EST Diagnosis: HYPERLIPIDEMIA NEC/NOS[ICD9: 272.4] Diagnosis: CAD[ICD9: 414.00] Diagnosis: TACHYCARDIA[ICD9: 785.0] Diagnosis: HYPERTENSION[ICD9: 401.9] Diagnosis: Routine medical exam[ICD9: V70.0] Vonnie MATHEWS DO [facility] CPT-4: 15917 04/05/2015 ([id number]) OFFICE/OUTPATIENT VISIT EST Diagnosis: HYPERTENSION[ICD9: 401.9] Diagnosis: HYPERLIPIDEMIA NEC/NOS[ICD9: 272.4] Diagnosis: CAD[ICD9: 414.00] Diagnosis: LUMB/LUMBOSAC DISC DEGEN[ICD9: 722.52] Vonnie LAINeri GASPAR Denia MATHEWS DO [facility] CPT-4: 36078 04/01/2015 ([id number]) OFFICE/OUTPATIENT VISIT EST Diagnosis: CHEST PAIN NOS[ICD9: 786.50] Diagnosis: PAIN IN THORACIC SPINE[ICD9: 724.1] Diagnosis: HYPERTENSION[ICD9: 401.9] Diagnosis: GERD[ICD9: 530.81] Vonnie MaciasKim ROMULONDER [facility] CPT-4: 86371 01/13/2014 ([id number]) OFFICE/OUTPATIENT VISIT EST Diagnosis: CAD[ICD9: 414.00] Diagnosis: HYPERLIPIDEMIA NEC/NOS[ICD9: 272.4] Vonniejuan jose Mathews SONUClary ANNA SKim ROMULONDER DO [facility] CPT-4: 18440 07/19/2012 ([id number]) OFFICE/OUTPATIENT VISIT EST Diagnosis: CAD[ICD9: 414.00] Diagnosis: INSOMNIA NOS[ICD9: 780.52] Vonnie Romulojuan miguel Loza OR [facility] CPT-4: 80695 04/03/2012 ([id number]) OFFICE/OUTPATIENT VISIT EST Diagnosis: CHEST PAIN NOS[ICD9: 786.50] Diagnosis: CAD[ICD9: 414.00] Vonnie ASCENCIOLINE JustinKim ROMULONDER DO [facility] CPT-4: 41622 03/22/2012 ([id number]) OFFICE/OUTPATIENT VISIT EST Diagnosis: PROSTATITIS[ICD9: 601.9] Diagnosis: TREMOR NEC[ICD9: 333.1] Vonnie Reid VONNIE JustinKim ROMULOND ER DO [facility] CPT-4: 66035 12/20/2011 OFFICE/OUTPATIENT VISIT EST Diagnosis: TREMOR NEC[ICD9: 333.1] Diagnosis: TACHYCARDIA[ICD9: 785.0] Diagnosis: HYPERTENSION[ICD9: 401.9] Vonnie Romuloalyssaranjan VONNIE JustinKim ORE NDER DO [facility] CPT-4: 57776 10/24/2011 OFFICE/OUTPATIENT VISIT EST Vonnie Romulojuan miguel COLMENARES JustinKim ROMULO NDER DO [facility] CPT- 4: 49071 03/13/2011 ([id number]) OFFICE/OUTPATIENT VISIT EST Vonnie GASPAR SKim ORENDER DO [facility] CPT-4: 14466 02/20/2011 ([id number]) OFFICE/OUTPATIENT VISIT, EST Vonnie Romulojuan miguel NELSON JustinKim [facility] CPT-4: 66934 02/23/2010 ([id number]) OFFICE/OUTPATIENT VISIT, EST Vonnie MATHEWS [facility] CPT-4: 85343 01/12/2010 Plan of Care Planned Activity Notes Codes Status Date Visit Diagnosis Plan: Encounter for therapeutic drug l evel monitoring Discussion: UDS and contract completed today. ICD-9 : V58.83 ICD-10 : Z51.81 09/24/2019 Visit Diagnosis Plan: Essential tremor Discussion: sta ble on clonazepam. educated patient about purchasing a large, heavy pen that will allow him to improve his writing. instructed him that pens can be purchased on [employer]. ICD-9 : 333.1 ICD-10 : G25.0 09/24/2019 Visit Diagnosis Plan: Noninfective gastroenteritis and colitis, unspecified Discussion: Flagyl [place] diet Update colonoscopy ICD-9 : 558.9 ICD-10 : K52.9 05/26/2019 Visit Diagnosis Plan: Hemorrhage of anus and rectum Di scussion: Update colonoscopy ICD-9 : 569.3 ICD-10 : K62.5 05/26/2019 Appointment: Vonnie [facility]ws [facility] [phone] [facility] [place] record request faxed 05/23; LM with medical records 05/26/19 Hospital Follow Up 05/26/2019 Care Plan: Referral Order SNOMED-CT : 30 [id number] Pending 05/26/2019 Visit Diagnosis Plan: Other intervertebral disc degene ration, lumbar region Discussion: Increase lyrica to 150mg po q HS Continue stretches from PT [facility] on [facility] 12 Fwup after that appointment ICD-9 : 722.52 ICD-10 : M51.36 03/17/2019 Appointment: Vonnie Mathews [facility]el[facility] [phone] [facility] [place] FOLLOW UP 03/17/2019 Visit Diagnosis Plan: Other intervertebral disc degene ration, lumbar region Discussion: Start PT Referral for epidural Will start lyrica 75mg po q HS once CT scan results obtained [facility] Follow Up: 3 weeks ICD-9 : [...] : R29.898 02/18/2019 Appointment: Vonnie Mathews WPtel: [address] [place] [address] FOLLOW UP 02/18/2019 Appointment: Vonnie Mathews WPtel: [address] [place] [address] [place] CANCELED 02/18/2019 Visit Diagnosis Plan: Other [...] J30.89 01/13/2019 Appointment: Akilah Lopez [address] [place] [address] [place] Due for annual wellness ACUTE ILLNESS 01/14/20 19 Appointment: Vonnie Mathews WPtel: [address] [place], [place] [phone] [place] LAB 09/04/2018 Visit Diagnosis Plan: Impacted [...] : H92.12 09/03/2018 Appointment: Verna Ramirez [address] ACUTE ILLNESS 09/03/2018 Visit Diagnosis Plan: [...] M51.36 08/26/2018 Appointment: Vonnie Mathews WPtel: [phone] [facility] [place] FOLLOW UP 08/26/2018 Visit Diagnosis Plan: [...] ICD-10 : R10.2 05/15/2018 Appointment: Verna Ramirez [address] [place], [place] [address] ACUTE ILLNESS 05/15/2018 Patient Education: Patient Medication Summary Completed 05/15/2018 Care Plan: US EXAM PELVIC COMPLETE scrotal LOINC : 12630-4 Pending 05/15/2018 Visit Diagnosis Plan: Other intervertebral [...] ICD-10 : I73.00 04/25/2018 Appointment: Verna Ramirez [address] [place] [address] MEDICATION REVIEW 04/25/2018 Patient Education: Patient Medication Summary Completed 04/25/2018 Appointment: Vonnie Mathews WPtel: [address] [place] [address] 11/16/2017 Patient Education: Patient Medication Summary Completed [...] : L50.1 11/06/2017 Appointment: Vonnie Mathews WPtel: [address] [place] [address] FOLLOW UP 11/06/2017 Patient Education: Patient Medication [...] ICD-10 : R63.4 09/03/2017 Appointment: Vonnie Mathewstel: [address] [place], [place] [phone] [place] FOLLOW UP 09/03/2017 Patient Education: Patient [...] Diagnosis Plan: Atherosclerotic he art disease of [place] coronary artery without angina pectoris Discussion: Sees Cardiology in 2 days To ER if CP returns before ICD-9 : 414.00 ICD-10 : I25.10 08/21/2017 Appointment: Vonnie Mathewstel: [address] [place], [place] [phone] [place] FOLLOW UP 08/21/2017 Patient Education: Patient Medication Summary Completed 08/21/2017 Appointment: Vonnie Mathewstel: [address] [place], [place] [phone] US LAB 07/31/2017 Patient Education: Patient Medication Summary Completed 07/31/2017 Appointment: Vonnie Mathews WPtel: [address] [place], [place] [phone] US INJECTION 07/04/2017 Patient Education: Patient Medication Summary Completed 07/04/2017 Appointment: Vonnie Mathews WPtel: [address] [place], [place] [phone] US LAB 02/26/2017 Patient Education: Patient Medication Summary Completed 02/26/2017 Visit Diagnosis Plan: Essential tremor Discussion: Con tinue clonazepam at 1mg q AM and primidone 50mg q HS Follow Up: 3 months ICD-9 : 333.1 ICD-10 : G25.0 02/13/2017 Appointment: Vonnie Mathews WPtel: [address] [place], [place] [phone] 02/08 confirmed~sl FOLLOW UP 02/13/2017 Patient Education: Patient Medication Summary Completed 02/13/2017 Appointment: Vonnie Mathews WPtel: [address] [place], [place] [phone] RESCHEDULED 01/23/2017 Visit Diagnosis Plan: Other intervertebral disc degene ration, lumbar region Discussion: DC oxycodone Tramadol 50mg 1-2 po TID prn pain Follow Up: 2 months ICD-9 : 722.52 ICD-10 : M51.36 11/23/2016 Visit Diagnosis Plan: Essential tremor Discussion: Inc rease clonazepam to 1mg po BID Discussed sinemet ICD-9 : 333.1 ICD-10 : G25.0 11/23/2016 Appointment: Vonnie Mathews WPtel: [address] [place], [place] [phone] 11/22 confirmed~sl MEDICATION REVIEW 11/23/2016 Patient Education: Patient Medication Summary Completed 11/23/2016 Patient Education: [facility] - [employer] - Clonazepam - 18-64 - Dynamic Portal ID Completed 11/23/2016 Appointment: Vonnie Mathews WPtel: [address] [place], [place] [phone] [place] INJECTION 06/28/2016 Patient Education: Patient Medication Summary Completed 06/28/2016 Referral: Fernando Day WPtel: #1 [facility] Shilpa Lopez [id number] per Maribeth, the patient is sched [...] if worsening 05/23/2016 Appointment: Vonnie Mathews WPtel: [address] [place], [place] [phone] ER Follow UP 05/23/2016 Patient Education: Patient Medication Summary Completed 05/23/2016 Appointment: Vonnie Mathews WPtel: [address] [place], [place] [phone] US LAB 05/19/2016 Patient Education: Patient Medication Summary Completed 05/19/2016 Visit Plan: Change coreg to 3.125mg BID Trial of low dose clonazepam 0.5mg BID for tremors Fwup with Dr. Ramsey as scheduled Return for fasting lab--CBC, CMP, TSH, free T4, Lipids, PSA, B12 Proceed with Colonoscopy 05/10/2016 Appointment: Vonnie Mathews WPtel: [address] [place], [place] [phone] 05/09 confirmed~sl Annual Well Visit 05/10/2016 Patient Education: Patient Medication Summary Completed 05/10/2016 Care Plan: Referral Order SNOMED-CT : 30 [id number] Pending 05/10/2016 Appointment: Vonnie Mathews WPtel: [address] [place], [place] [phone] [place] Rescheduled for 05/10/16 at 2PM~lb RESCHEDULED 04/26/2016 Referral: Danilo Ramsey WPtel: [facility] Denia Mercado [id number] [place] Referral Initiated 04/29/2015 Appointment: Vonnie Mathews WPtel: [address] [place], [place] [phone] [place] LAB 04/05/2015 Patient Education: Patient Medication Summary Completed 04/05/2015 Visit Plan: Return in AM for fasting lab --CMP, lipids, CBC, TSH, PSA Change hydrocodone to oxycodone 7.5/325mg 1-2 po TID Schedule with cardiology Needs colonoscopy once cardiology evaluation complete Will need to restart chol meds after lab Recheck 1mo on pain meds 04/01/2015 Appointment: Vonnie Mathews WPtel: [address] [place], [place] [phone] 03/31 confirmed -mf PHYSICAL 04/01/2015 Patient Education: Patient Medication Summary Completed 04/01/2015 Appointment: Vonnie Mathews WPtel: [address] [place] [address] Annual Well Visit 09/23/2014 Visit Plan: Continue protonix Pt has fwu p with Card next month Rec chiropracter or PT for ribs/thoracics being out and could be contributing to chest pain 01/13/2014 Appointment: Vonnie Mathews WPtel: [address] [place], [place] [address] FOLLOW UP 01/13/2014 Patient Education: Patient Medication Summary Completed 01/13/2014 Appointment: Ariella Mcnally WPtel: [address] [place] [address] [place] FOLLOW UP 12/12/2013 Appointment: Malika Cárdenas WPtel: [address] [place], [place] [id number] PHYSICAL 12/12/2013 Appointment: Vonnie Mathews WPtel: [address] [place], [place] [phone] ACUTE ILLNESS 02/20/2013 Appointment: Vonnie Mathews WPtel: [address] [place] [phone] [place] LAB 07/19/2012 Patient Education: Patient Medication Summary Completed 07/19/2012 Appointment: Vonnie Mathews WPtel: [address] [place] [phone] [place] FOLLOW UP 04/03/2012 Patient Education: Patient Medication Summary Completed 04/03/2012 Appointment: Vonnie Mathews WPtel: [address] [place] [address] ACUTE ILLNESS 03/22/2012 Patient Education: Patient Medication Summary Completed 03/22/2012 Appointment: Vonnie Mathews WPtel: [address] [place] [address] FOLLOW UP 12/26/2011 Visit Plan: Add Cipro Continue current m eds 12/20/2011 Appointment: Vonnie Mathews WPtel: [address] [place] [address] ACUTE ILLNESS 12/20/2011 Patient Education: Patient Medication Summary Completed 12/20/2011 Visit Plan: Change neurontin to Cymbalta 30mg for 1wk then 60mg QD Add Propranolol for tremor 10/24/2011 Appointment: Vonnie Mathews WPtel: [address] [place] [address] ACUTE ILLNESS 10/24/2011 Appointment: Vonnie Mathews WPtel: [address] [place] [address] ACUTE ILLNESS 10/24/2011 Patient Education: Patient Medication Summary Completed 10/24/2011 Visit Plan: Continue current meds and fw up with Card as scheduled 03/13/2011 Appointment: Vonnie Mathews WPtel: [address] [place] [address] FOLLOW UP 03/13/2011 Patient Education: Patient Medication Summary Completed 03/13/2011 Visit Plan: Will obtain all records and lab from Guillaume Discussed will likely need heart cath which pt states that Card did talk to him about in the hospital 02/20/2011 Appointment: Vonnie Mathews WPtel: [address] [place] [address] ACUTE ILLNESS 02/20/2011 Patient Education: Patient Medication Summary Completed 02/20/2011 Visit Plan: Cont Pepcid and Prilosec See Card for cardiac cath. 02/23/2010 Appointment: Vonnie Mathews WPtel: [address] [place], [place] [phone] FOLLOW UP 02/23/2010 Patient Education: Patient Medication Summary Completed 02/23/2010 Visit Plan: Increase Pamelor to 75mg qhs Increase Hydrocodone to 10/325mg 1-2 po q6 prn 01/12/2010 Appointment: Vonnie Mathews WPtel: [phone] [facility] ACUTE ILLNESS 01/12/2010 Patient Education: Patient Medication Summary Completed 01/12/2010 Referral: Iván Pardo WPtel: [facility] [address] Referral Initiated Referral: Fernando Day WPtel: [address] [place] [address] [place] Referral Completed Referral: Fernando Day WPtel: #1 [facility] Referral Appointment Requested Instructions Comment . Finish [...]
--- OUTSIDE RECORDS SUMMARY | 2020-02-10 08:31 | XMS REPORT | CCD ---
Author Author Nash Mathews D.O. 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 Name Role Phone Vonnie Mathews D.O., PP Unavailable CCM Unavailable Summary Purpose Interface Exchange Insurance Providers Payer name Policy type / Coverage type Covered republican ID Effective Begin Date Effective End Date WPS MEDICARE PART B [place] Medicare Part B [id number] 2018 Unknown Family History Family History data not found Social History Social History Element Codes Description Effective Dates Marital status Unknown 10/24/[address]: 858078952 Nonsmoker 03/29/2011 Allergies, Adverse Reactions, Alerts Substance [...] R63.4 08/21/2017 Active 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: [...] Fill Instructions clonazepam 1 mg tablet RxNorm: 829758 TAKE 1 TABLET BY MOUTH EV SUSAN AM 09/23/2019 10/22/2019 Active clonazepam 1 mg tablet RxNorm: 696213 TAKE 1 TABLET BY MOUTH EV SUSAN AM 08/21/2019 09/22/2019 Inactive Singulair 10 mg tablet RxNorm: 936749 TABLET(S) 1 TABLET(S) PO QD 1 10/11/2019 Active Flagyl 500 mg tablet RxNorm: 166028 1 Tablet(s) PO TID 05/26/2019 Inactive clonazepam 1 mg tablet RxNorm: 018597 TAKE 1 TABLET BY MOUTH EV SUSAN MORNING 05/23/2019 06/21/2019 Inactive pravastatin 20 mg tablet RxNorm: 837265 1 Tablet(s) PO QD 04/14/2019 10/10/2019 Active Needs updated fasting labs Singulair 10 mg tablet RxNorm: 623046 Tablet(s) 1 TABLET(S) PO QD 0 04/14/2019 07/12/2019 Inactive clonazepam 1 mg tablet RxNorm: 071540 1 Tablet(s) PO QAM 02/21/2019 0 05/23/2019 Inactive Bevespi Aerosphere 9 mcg-4.8 mcg HFA aerosol inhaler RxNorm: 7586915 2 Puff(s) INH BID 02/19/2019 No Stop Date Active ProAir HFA 90 mcg/actuation aerosol inhaler RxNorm: 371057 2 Puff(s) INH Q4H as needed 02/19/2019 09/24/2019 Inactive metoprolol tartrate 25 mg tablet RxNorm: 798986 1/2 Tablet(s) PO BI D 02/18/2019 05/18/2019 Inactive pravastatin 20 mg tablet RxNorm: 858599 1 Tablet(s) PO QD Needs updated fasting labs 01/13/2019 04/14/2019 Inactive Needs updated fa sting labs Singulair 10 mg tablet RxNorm: 700131 Tablet(s) 1 TABLET(S) PO QD 0 01/13/2019 04/12/2019 Inactive Plavix 75 mg tablet RxNorm: 647756 Tablet(s) 1 TABLET(S) PO QD 04/201906/20/2019 Inactive [SAVINGS FOR NON-COVERED SHANDA -- BIN:895925, PCN: ASPROD1, Group: XXXXX, ID# [id number], Questions: . THIS IS NOT INSURANCE.] Singulair 10 mg tablet RxNorm: 818072 1 TABLET(S) PO QD 10/29/2018 Inactive primidone 50 mg tablet RxNorm: 326437 2 TABLET(S) PO BI D TAKE 2 TABLETS BY MOUTH EVERY NIGHT AT BEDTIME 10/07/2018 01/12/2019 Inactive Patient requests 90 days supply pravastatin 20 mg tablet RxNorm: 835303 1 TABLET(S) PO QD 09/23/2018 01/12/2019 Inactive clonazepam 1 mg tablet RxNorm: 482603 1 Tablet(s) PO QAM 09/19/2018 0 12/17/2018 Inactive primidone 50 mg tablet RxNorm: 331708 TABLET(S) TAKE 2 TABLETS BY MOUTH EVERY NIGHT AT BEDTIME 09/18/2018 01/12/2019 Inactive ciprofloxacin 0.2 % ear drops in a dropperette RxNorm: 05627 6 2 Drop(s) left otic (ear) BID 09/03/2018 09/09/2018 Inactive primidone 50 mg tablet RxNorm: 997179 2 Tablet(s) PO BI D TAKE 2 TABLETS BY MOUTH EVERY NIGHT AT BEDTIME 08/26/2018 10/06/2018 Inactive Ambien 5 mg tablet RxNorm: 589014 TAKE 1 TABLET BY MOUTH EVERY NIGHT AT BEDTIME 08/05/2018 09/03/2018 Inactive Singulair 10 mg tablet RxNorm: 136883 1 TABLET(S) PO QD 07/23/2018 Inactive clonazepam 1 mg tablet RxNorm: 347900 TAKE 1 TABLET BY MOUTH EV SUSAN MORNING 07/23/2018 08/21/2018 Inactive Plavix 75 mg tablet RxNorm: 894654 1 TABLET(S) PO QD 07/04/201812/22 Inactive [SAVINGS FOR NON-COVERED DRUGS -- BIN:00 3585, PCN: ASPROD1, Group: XXXXX, ID# [id number], Questions: . THIS IS NOT INSURANCE.] clonazepam 1 mg tablet RxNorm: 807325 TAKE 1 TABLET BY MOUTH EV SUSAN MORNING 06/25/2018 07/23/2018 Inactive clonazepam 1 mg tablet RxNorm: 355190 TAKE 1 TABLET BY MOUTH EV SUSAN MORNING 05/23/2018 06/21/2018 Inactive primidone 50 mg tablet RxNorm: 825419 Tablet(s) TAKE 2 TABLETS BY MOUTH EVERY NIGHT AT BEDTIME 05/16/2018 08/25/2018 Inactive oxycodone-acetaminophen 7.5 mg-325 mg tablet RxNorm: 0286848 1-2 Tablet(s) PO TID as needed 04/25/2018 05/24/2018 Inactive Singulair 10 mg tablet RxNorm: 992300 1 Tablet(s) PO QD 04/25/2018 Inactive Medrol (Jose) 4 mg tablets in a dose pack RxNorm: 213097 Tablet(s) PO take as directed 04/25/2018 09/02/2018 Inactive clonazepam 1 mg tablet RxNorm: 824287 TAKE 1 TABLET BY MOUTH EV SUSAN MORNING 04/24/2018 05/22/2018 Inactive Plavix 75 mg tablet RxNorm: 509600 1 TABLET(S) PO QD 04/04/201807/02 Inactive [SAVINGS FOR NON-COVERED DRUGS -- BIN:00 3584, PCN: ASPROD1, Group: XXXXX, ID# [id number], Questions: . THIS IS NOT INSURANCE.] pravastatin 20 mg tablet RxNorm: 620771 1 Tablet(s) PO QD 03/21/2018 09/16/2018 Inactive ProAir HFA 90 mcg/actuation aerosol inhaler RxNorm: 301471 2 Puff(s) INH Q4H as needed 03/18/2018 03/17/2018 Inactive tamsulosin 0.4 mg capsule RxNorm: 182199 1 CAPSULE(S) PO QD 018 01/12/2019 Inactive clonazepam 1 mg tablet RxNorm: 103043 1 Tablet(s) PO QAM 02/25/2018 0 04/25/2018 Inactive tamsulosin 0.4 mg capsule RxNorm: 446109 1 Capsule(s) PO QD 018 03/13/2018 Inactive tamsulosin 0.4 mg capsule RxNorm: 485013 1 Capsule(s) PO QD 018 02/03/2018 Inactive tamsulosin 0.4 mg capsule RxNorm: 584124 1 Capsule(s) PO QD 018 02/12/2018 Inactive Ambien 5 mg tablet RxNorm: 623626 Tablet(s) TAKE 1 TAB LET BY MOUTH EVERY NIGHT AT BEDTIME 01/24/2018 08/05/2018 Inactive primidone 50 mg tablet RxNorm: 968573 Tablet(s) TAKE 2 TABLETS BY MOUTH EVERY NIGHT AT BEDTIME 01/18/2018 05/16/2018 Inactive cyclobenzaprine 10 mg tablet RxNorm: 300074 1 Tablet(s) PO TID as needed for muscle spasm 01/11/2018 02/09/2018 Inactive [SAVINGS FOR NON -COVERED DRUGS -- BIN:672414, PCN: ASPROD1, Group: XXXXX, ID# [id number], Questions: . THIS IS NOT INSURANCE.] clonazepam 1 mg tablet RxNorm: 278830 1 Tablet(s) PO QAM 12/24/2017 0 02/21/2018 Inactive prednisone 20 mg tablet RxNorm: 157004 1 Tablet(s) PO QD 11/06/2017 0 11/10/2017 Inactive EpiPen 2-Jose 0.3 mg/0.3 mL injection, auto-injector RxNorm: 451502 1 Unit Dose IM as needed 11/06/2017 09/24/2019 Inactive ProAir HFA 90 mcg/actuation aerosol inhaler RxNorm: 664838 2 Puff(s) INH Q4H as needed 10/30/2017 03/17/2018 Inactive primidone 50 mg tablet RxNorm: 538808 TAKE 2 TABLETS BY MOUTH EVERY NIGHT AT BEDTIME 10/15/2017 01/17/2018 Inactive Plavix 75 mg tablet RxNorm: 998903 1 Tablet(s) PO QD 10/01/201703/29 Inactive [SAVINGS FOR NON-COVERED DRUGS -- BIN:00 3585, PCN: ASPROD1, Group: XXXXX, ID# [id number], Questions: . THIS IS NOT INSURANCE.] clonazepam 1 mg tablet RxNorm: 896977 1 Tablet(s) PO QAM 09/19/2017 0 12/16/2017 Inactive primidone 50 mg tablet RxNorm: 884212 2 Tablet(s) PO QHS 08/29/2017 0 01/18/2018 Inactive oxycodone-acetaminophen 7.5 mg-325 mg tablet RxNorm: 6245312 1-2 Tablet(s) PO TID as needed 08/22/2017 09/19/2017 Inactive pravastatin 20 mg tablet RxNorm: 567150 1 Tablet(s) PO QD 08/21/2017 03/21/2018 Inactive carvedilol 3.125 mg tablet RxNorm: 018673 1 Tablet(s) P O BID to replace 6.25mg dose 08/21/2017 09/02/2017 Inactive primidone 50 mg tablet RxNorm: 396562 TAKE 2 TABLETS BY MOUTH EVERY NIGHT AT BEDTIME 06/18/2017 08/28/2017 Inactive clonazepam 1 mg tablet RxNorm: 512906 1 Tablet(s) PO QAM 06/04/2017 1 11/02/2016 Inactive Plavix 75 mg tablet RxNorm: 141546 1 Tablet(s) PO QD 04/10/201710/01 Inactive [SAVINGS FOR NON-COVERED DRUGS -- BIN:00 3585, PCN: ASPROD1, Group: XXXXX, ID# [id number], Questions: . THIS IS NOT INSURANCE.] pravastatin 20 mg tablet RxNorm: 705579 1 Tablet(s) PO QD 02/26/2017 08/24/2017 Inactive carvedilol 3.125 mg tablet RxNorm: 435344 1 Tablet(s) P O BID to replace 6.25mg dose 02/26/2017 08/21/2017 Inactive Ultram 50 mg tablet RxNorm: 024102 TAKE 1 TO 2 TABLETS BY MOUTH THREE TIMES DAILY NEEDED FOR PAIN 02/26/2017 03/07/2017 Inactive pravastatin 20 mg tablet RxNorm: 614430 1 Tablet(s) PO QD 02/26/2017 08/21/2017 Inactive carvedilol 3.125 mg tablet RxNorm: 342465 1 Tablet(s) P O BID to replace 6.25mg dose 02/26/2017 08/20/2017 Inactive clonazepam 0.5 mg tablet RxNorm: 881288 1 Tablet(s) PO QAM 02/14/20 17 02/13/2017 Inactive primidone 50 mg tablet RxNorm: 828739 1 Tablet(s) PO QHS 02/13/2017 0 05/01/2017 Inactive clonazepam 1 mg tablet RxNorm: 959997 1 Tablet(s) PO QAM 02/13/2017 0 05/13/2017 Inactive primidone 50 mg tablet RxNorm: 075385 1/2 Tablet(s) PO QD for 7 days then increase to 1 tablet at bedtime 01/09/2017 02/12/2017 Inactive pravastatin 20 mg tablet RxNorm: 887276 Tablet(s) 1 TABLET(S) PO QD 11/29/2016 02/25/2017 Inactive clonazepam 1 mg tablet RxNorm: 223322 1 Tablet(s) PO BID replac es 0.5mg dose 11/23/2016 01/08/2017 Inactive pravastatin 20 mg tablet RxNorm: 253572 1 TABLET(S) PO QD 11/17/2016 11/28/2016 Inactive Ambien 5 mg tablet RxNorm: 851385 TAKE 1 TABLET BY MOUTH EVERY NIGHT AT BEDTIME 11/17/2016 12/14/2016 Inactive clonazepam 0.5 mg tablet RxNorm: 019838 TAKE 1 TABLET BY MOUTH TWICE DAILY 11/17/2016 11/22/2016 Inactive Plavix 75 mg tablet RxNorm: 559249 1 Tablet(s) PO QD 11/06/201604/09 Inactive [SAVINGS FOR NON-COVERED DRUGS -- BIN:00 3585, PCN: ASPROD1, Group: XXXXX, ID# [id number], Questions: . THIS IS NOT INSURANCE.] Plavix 75 mg tablet RxNorm: 143675 1 Tablet(s) PO QD 08/28/201611/05 Inactive [SAVINGS FOR NON-COVERED DRUGS -- BIN: 3585, PCN: ASPROD1, Group: XXXXX, ID# [id number], Questions: . THIS IS NOT INSURANCE.] Lidoderm 5 % topical patch RxNorm: 2474713 Application T OP 2 patches for 12hrs then off for 12hrs 08/28/2016 08/27/2016 Inactive clonazepam 0.5 mg tablet RxNorm: 919475 1 Tablet(s) PO BID 08/07/20 16 11/22/2016 Inactive pravastatin 20 mg tablet RxNorm: 071100 1 Tablet(s) PO QD 08/07/2016 11/04/2016 Inactive cyclobenzaprine 10 mg tablet RxNorm: 563774 1 Tablet(s) PO TID as needed for muscle spasm 08/07/2016 09/05/2016 Inactive [SAVINGS FOR NON -COVERED DRUGS -- BIN:304358, PCN: ASPROD1, Group: XXXXX, ID# [id number], Questions: . THIS IS NOT INSURANCE.] Plavix 75 mg tablet RxNorm: 197156 1 Tablet(s) PO QD 08/07/201608/27 Inactive [SAVINGS FOR NON-COVERED DRUGS -- BIN:00 3585, PCN: ASPROD1, Group: XXXXX, ID# [id number], Questions: . THIS IS NOT INSURANCE.] carvedilol 3.125 mg tablet RxNorm: 946524 1 Tablet(s) P O BID to replace 6.25mg dose 08/07/2016 02/02/2017 Inactive clonazepam 0.5 mg tablet RxNorm: 070538 1 Tablet(s) PO BID 07/04/2008/07/2016 Inactive Plavix 75 mg tablet RxNorm: 091365 1 TABLET(S) PO QD 06/20/201608/06 Inactive [SAVINGS FOR NON-COVERED DRUGS -- BIN:00 3585, PCN: ASPROD1, Group: XXXXX, ID# [id number], Questions: . THIS IS NOT INSURANCE.] clonazepam 0.5 mg tablet RxNorm: 030089 1 Tablet(s) PO BID 06/09/20 16 07/03/2016 Inactive pravastatin 20 mg tablet RxNorm: 597087 1 Tablet(s) PO QD 05/23/2016 08/06/2016 Inactive pravastatin 20 mg tablet RxNorm: 437710 1 Tablet(s) PO QD 05/23/2016 05/22/2016 Inactive carvedilol 3.125 mg tablet RxNorm: 084076 1 Tablet(s) P O BID to replace 6.25mg dose 05/10/2016 08/06/2016 Inactive carvedilol 3.125 mg tablet RxNorm: 052038 1 Tablet(s) P O BID to replace 6.25mg dose 05/10/2016 05/09/2016 Inactive clonazepam 0.5 mg tablet RxNorm: 833438 1 Tablet(s) PO BID 05/10/20 16 06/08/2016 Inactive carvedilol 6.25 mg tablet RxNorm: 297331 1 Tablet(s) PO QD 05/10/20 16 05/10/2016 Inactive simvastatin 40 mg tablet RxNorm: 834094 1 TABLET(S) PO QD 04/10/2016 05/09/2016 Inactive Medrol (Jose) 4 mg tablets in a dose pack RxNorm: 105378 Tablet(s) PO As Directed 01/13/2016 05/09/2016 Inactive cyclobenzaprine 10 mg tablet RxNorm: 521112 1 TABLET(S) PO TID NEEDED FOR SPASM 01/11/2016 03/10/2016 Inactive [SAVINGS FOR NON -COVERED DRUGS -- BIN:273049, PCN: ASPROD1, Group: XXXXX, ID# [id number], Questions: . THIS IS NOT INSURANCE.] Plavix 75 mg tablet RxNorm: 559563 1 Tablet(s) PO QD 12/30/201506/19 Inactive [SAVINGS FOR NON-COVERED DRUGS -- BIN: 3585, PCN: ASPROD1, Group: XXXXX, ID# [id number], Questions: . THIS IS NOT INSURANCE.] Ambien 5 mg tablet RxNorm: 678534 TAKE 1 TABLET BY MOUTH EVERY DAY AT BEDTIME 11/15/2015 11/17/2016 Inactive simvastatin 40 mg tablet RxNorm: 456008 1 Tablet(s) PO QD 10/11/2015 01/12/2019 Inactive simvastatin 40 mg tablet RxNorm: 431826 1 Tablet(s) PO QD 10/08/2015 10/10/2015 Inactive Ambien 5 mg tablet RxNorm: 479925 TAKE 1 TABLET BY MOUTH EVERY NIGHT AT BEDTIME 07/27/2015 11/15/2015 Inactive Plavix 75 mg tablet RxNorm: 324512 1 Tablet(s) PO QD 06/28/201512/29 Inactive [SAVINGS FOR NON-COVERED DRUGS -- BIN: 3585, PCN: ASPROD1, Group: XXXXX, ID# [id number], Questions: . THIS IS NOT INSURANCE.] Coreg 6.25 mg tablet RxNorm: 211815 1 TABLET(S) PO BID 04/19/2015 Inactive [SAVINGS FOR NON-COVERED DRUGS -- BIN:00 3585, PCN: ASPROD1, Group: XXXXX, ID# [id number], Questions: . THIS IS NOT INSURANCE.] simvastatin 40 mg tablet RxNorm: 945263 1 Tablet(s) PO QD 04/05/2015 04/04/2015 Inactive simvastatin 40 mg tablet RxNorm: 236091 1 Tablet(s) PO QD 04/05/2015 10/11/2015 Inactive Plavix 75 mg tablet RxNorm: 348142 1 TABLET(S) PO QD 03/22/201504/20 Inactive [SAVINGS FOR NON-COVERED DRUGS -- BIN:00 3585, PCN: ASPROD1, Group: XXXXX, ID# [id number], Questions: . THIS IS NOT INSURANCE.] Plavix 75 mg tablet RxNorm: 444365 1 Tablet(s) PO QD 03/22/201506/28 Inactive [SAVINGS FOR NON-COVERED DRUGS -- BIN:00 3585, PCN: ASPROD1, Group: XXXXX, ID# [id number], Questions: . THIS IS NOT INSURANCE.] Ambien 5 mg tablet RxNorm: 402201 1 Tablet(s) PO QHS 12/17/201407/28 Inactive [SAVINGS FOR NON-COVERED DRUGS -- BIN:00 3585, PCN: ASPROD1, Group: XXXXX, ID# [id number], Questions: . THIS IS NOT INSURANCE.] Coreg 6.25 mg tablet RxNorm: 694603 1 Tablet(s) PO BID 12/17/2014 Inactive [SAVINGS FOR NON-COVERED DRUGS -- BIN:00 3585, PCN: ASPROD1, Group: XXXXX, ID# [id number], Questions: . THIS IS NOT INSURANCE.] Plavix 75 mg tablet RxNorm: 938541 1 Tablet(s) PO QD 12/17/201403/16 Inactive [SAVINGS FOR NON-COVERED DRUGS -- BIN:00 3585, PCN: ASPROD1, Group: XXXXX, ID# XXXXXXX, Questions: . THIS IS NOT INSURANCE.] cyclobenzaprine 10 mg tablet RxNorm: 799281 1 Tablet(s) PO TID as needed for spasm 12/17/2014 03/16/2015 Inactive [SAVINGS FOR NON -COVERED DRUGS -- BIN:839042, PCN: ASPROD1, Group: XXXXX, ID# [id number], Questions: . THIS IS NOT INSURANCE.] Coreg 6.25 mg tablet RxNorm: 486236 1 Tablet(s) PO BID 10/21/201409/2014 Inactive [SAVINGS FOR NON-COVERED DRUGS -- BIN:00 3585, PCN: ASPROD1, Group: XXXXX, ID# XXXXXXX, Questions: . THIS IS NOT INSURANCE.] Plavix 75 mg tablet RxNorm: 155507 1 Tablet(s) PO QD 10/21/201412/16 Inactive [SAVINGS FOR NON-COVERED DRUGS -- BIN:00 3585, PCN: ASPROD1, Group: XXXXX, ID# XXXXXXX, Questions: . THIS IS NOT INSURANCE.] Plavix 75 mg tablet RxNorm: 262860 1 Tablet(s) PO QD Ne eds routine check up--last seen March 2012 09/21/2014 10/20/2014 Inactive [SAVINGS FOR UNINSURED PATIENTS -- BIN:706764, PCN: ASPROD1, Group: AME08, ID# [id number], Process claim through [employer], for questions: . THIS IS NOT INSURANCE.] Ambien 5 mg tablet RxNorm: 391750 1 Tablet(s) PO [facility] 09/21/201412/16 Inactive [SAVINGS FOR UNINSURED PATIENTS -- BIN:0 39266, PCN: ASPROD1, Group: AME08, ID# [id number], Process claim through [employer], for questions: . THIS IS NOT INSURANCE.] Coreg 6.25 mg tablet RxNorm: 122993 1 Tablet(s) PO BID 09/21/201411/2014 Inactive [SAVINGS FOR UNINSURED PATIENTS -- BIN:0 40898, PCN: ASPROD1, Group: AME08, ID# [id number], Process claim through [employer], for questions: . THIS IS NOT INSURANCE.] Plavix 75 mg tablet RxNorm: 372723 1 Tablet(s) PO QD Ne eds routine check up--last seen March 2012 08/04/2014 09/02/2014 Inactive [SAVINGS FOR UNINSURED PATIENTS -- BIN:179242, PCN: ASPROD1, Group: AME08, ID# [id number], Process claim through [employer], for questions: . THIS IS NOT INSURANCE.] Plavix 75 mg tablet RxNorm: 603135 1 Tablet(s) PO QD Ne eds routine check up--last seen March 2012 08/03/2014 08/03/2014 Inactive Protonix 40 mg tablet,delayed release RxNorm: 390474 1 Tablet(s ) PO QD 06/08/2014 02/17/2019 Inactive [SAVINGS FOR UNINSUR ED PATIENTS -- BIN:377637, PCN: ASPROD1, Group: AME08, ID# [id number], Process claim through [employer], for questions: . THIS IS NOT INSURANCE.] hydrocodone 10 mg-acetaminophen 325 mg tablet RxNorm: 616383 1 Tablet(s) PO BID as needed for pain 02/18/2014 03/31/2015 Inactive Coreg 6.25 mg tablet RxNorm: 311071 1 Tablet(s) PO BID 02/02/2014 Inactive Protonix 40 mg granules delayed-release packet RxNorm: 299982 1 Tablet(s) PO QD 01/13/2014 06/08/2014 Inactive Plavix 75 mg tablet RxNorm: 256526 1 Tablet(s) PO QD Ne eds routine check up--last seen March 2012 01/13/2014 08/02/2014 Inactive Plavix 75 mg tablet RxNorm: 352109 1 Tablet(s) PO QD Ne eds routine check up--last seen March 2012 12/09/2013 01/07/2014 Inactive Coreg 6.25 mg tablet RxNorm: 890714 1 Tablet(s) PO BID 12/09/2013 Inactive Cymbalta 60 mg capsule,delayed release RxNorm: 818318 1 Capsule (s) PO QD 10/31/2013 01/12/2014 Inactive Coreg 6.25 mg tablet RxNorm: 491930 1 Tablet(s) PO BID 10/31/2013 Inactive Plavix 75 mg tablet RxNorm: 554945 1 Tablet(s) PO QD Ne eds routine check up--last seen March 2012 10/31/2013 11/29/2013 Inactive Coreg 6.25 mg tablet RxNorm: 027230 1 Tablet(s) PO BID 10/31/2013 Inactive atorvastatin 40 mg tablet RxNorm: 229840 1 Tablet(s) PO QD 10/31/19 14 03/31/2015 Inactive Plavix 75 mg tablet RxNorm: 889740 1 Tablet(s) PO QD Ne eds routine check up--last seen March 2012 09/23/2013 10/30/2013 Inactive cyclobenzaprine 10 mg tablet RxNorm: 512869 1 Tablet(s) PO TID as needed for spasm 09/23/2013 No Stop Date Active cyclobenzaprine 10 mg tablet RxNorm: 137822 1 Tablet(s) PO TID as needed for spasm 07/04/2013 09/22/2013 Inactive atorvastatin 40 mg tablet RxNorm: 978210 1 Tablet(s) PO QD 06/23/20 13 10/30/2013 Inactive atorvastatin 40 mg tablet RxNorm: 445641 1 Tablet(s) PO QD 04/22/20 13 06/22/2013 Inactive Nucynta 50 mg tablet RxNorm: 608294 1-2 Tablet(s) PO Q6H as nee ded for pain 01/01/2013 01/12/2014 Inactive Ambien 5 mg tablet RxNorm: 127173 1 Tablet(s) PO QHS 10/16/201201/13 Inactive Plavix 75 mg tablet RxNorm: 037226 1 Tablet(s) PO QD 09/19/201209/13 Inactive Protonix 40 mg tablet,delayed release RxNorm: 156245 1 Tablet(s ) PO QD 09/19/2012 09/18/2012 Inactive simvastatin 40 mg tablet RxNorm: 076786 1 Tablet(s) PO QD 09/19/2012 02/23/2013 Inactive Protonix 40 mg tablet,delayed release RxNorm: 127581 1 Tablet(s ) PO QD 09/19/2012 09/13/2013 Inactive Ultram 50 mg tablet RxNorm: 723991 1-2 Tablet(s) PO QID as need ed for pain 09/19/2012 02/26/2017 Inactive propranolol 80 mg tablet RxNorm: 208926 1 Tablet(s) PO QHS 09/19/19 13 09/18/2012 Inactive Cymbalta 60 mg capsule,delayed release RxNorm: 329853 1 Capsule (s) PO QD 09/19/2012 09/18/2012 Inactive Cymbalta 60 mg capsule,delayed release RxNorm: 203197 1 Capsule (s) PO QD 09/19/2012 03/17/2013 Inactive propranolol 80 mg tablet RxNorm: 213667 1 Tablet(s) PO QHS 09/19/19 13 02/23/2013 Inactive hydrocodone-acetaminophen 10 mg-325 mg tablet RxNorm: 556438 2 1-2 Tablet(s) PO QID 07/25/2012 02/23/2013 Inactive Ambien 10 mg tablet RxNorm: 417341 1 Tablet(s) PO QHS as needed for sleep 07/10/2012 01/27/2013 Inactive propranolol 80 mg tablet RxNorm: 612573 1 Tablet(s) PO QHS 05/13/20 12 09/18/2012 Inactive hydrocodone-acetaminophen 10 mg-325 mg tablet RxNorm: 164002 2 1-2 Tablet(s) PO QID 05/02/2012 No Stop Date Active Restoril 15 mg Cap RxNorm: 977001 1-2 Capsule(s) PO QHS 05/02/2012 Inactive propranolol 80 mg tablet RxNorm: 586470 1 Tablet(s) PO QHS 05/02/20 12 05/12/2012 Inactive Chantix Starting Month Box 0.5 mg (11)-1 mg (42) Tabs in a Dose Pack RxNorm: 086043 Tablet(s) PO As Directed 04/01/2012 01/27/2013 Inactive simvastatin 40 mg tablet RxNorm: 379185 1 Tablet(s) PO QD 03/28/2012 09/18/2012 Inactive simvastatin 40 mg Tab RxNorm: 671005 1 Tablet(s) PO QD 03/22/201207/2012 Inactive Effient 10 mg Tab RxNorm: 537356 1 Tablet(s) PO QD 03/22/2012 012 Inactive Prilosec 40 mg Capsule, delayed release RxNorm: 203530 1 Capsul e(s) PO QD 03/22/2012 09/18/2012 Inactive Prilosec 40 mg Capsule, delayed release RxNorm: 365350 1 Capsul e(s) PO QD 03/19/2012 03/21/2012 Inactive Cymbalta 60 mg capsule,delayed release RxNorm: 851345 1 Capsule (s) PO QD 03/04/2012 08/30/2012 Inactive hydrocodone-acetaminophen 10 mg-325 mg Tab RxNorm: 3685255 1-2 T ablet(s) PO QID 01/23/2012 No Stop Date Active Cymbalta 60 mg Capsule, delayed release RxNorm: 166767 1 Capsul e(s) PO QD 01/23/2012 03/03/2012 Inactive Cipro 500 mg Tab RxNorm: 485538 1 Tablet(s) PO BID 12/20/2011 012 Inactive Cymbalta 60 mg Capsule, delayed release RxNorm: 848311 1 Capsul e(s) PO QD 12/13/2011 01/22/2012 Inactive nortriptyline 75 mg Cap RxNorm: 650135 1 Capsule(s) PO QHS 11/29/1904/02/2012 Inactive Cymbalta 60 mg Cap RxNorm: 217842 1 Capsule(s) PO QD 10/24/201112/11 Inactive propranolol 80 mg Tab RxNorm: 950300 1 Tablet(s) PO QHS 10/24/2011 Inactive hydrocodone-acetaminophen 10 mg-325 mg Tab RxNorm: 7918371 1-2 T ablet(s) PO QID 09/29/2011 No Stop Date Active hydrocodone-acetaminophen 10 mg-325 mg Tab RxNorm: 2907044 1-2 T ablet(s) PO QID 07/25/2011 No Stop Date Active hydrocodone-acetaminophen 10 mg-325 mg Tab RxNorm: 4475991 1-2 T ablet(s) PO QID 02/14/2011 No Stop Date Active Prilosec 40 mg Cap RxNorm: 756023 1 Capsule(s) PO 01/03/2011 04/28/20 19 Inactive nortriptyline 75 mg Cap RxNorm: 042858 1 Capsule(s) PO QHS 01/04/20 11 07/01/2011 Inactive Neurontin 600 mg Tab RxNorm: 380248 1 Tablet(s) PO QHS 12/08/201011/2011 Inactive hydrocodone-acetaminophen 5 mg-500 mg Tab RxNorm: 955547 2 Tablet(s) PO Q4-6H prn 10/20/2010 01/08/2011 Inactive Diltzac ER 240 mg Cap RxNorm: 431665 1 Capsule(s) PO QD 07/14/2010 Inactive Nortriptyline 75 mg Cap RxNorm: 306379 1 Capsule(s) PO QHS 05/09/20 10 01/12/2019 Inactive Neurontin 600 mg Tab RxNorm: 037778 1 Tablet(s) PO QD 03/17/201012/17 Inactive Nortriptyline 75 mg Cap RxNorm: 515480 1 Capsule(s) PO 01/12/2010 Inactive Nortriptyline 50 mg Cap RxNorm: 443488 1 Capsule(s) PO QHS 01/13/20 10 01/11/2010 Inactive Diltzac ER 240 mg Cap RxNorm: 098922 1 Capsule(s) PO QD 12/06/2009 Inactive aspirin 81 mg Tab RxNorm: 382907 1 Tablet(s) PO QD No Start Date Active Vitamin D3 2,000 unit tablet RxNorm: 444417 1 Tablet(s) PO QD No Star t Date Active Lyrica 75 mg capsule RxNorm: 831138 1 Capsule(s) PO QHS No Start Date Active nvfiiuvca-ixvxxctja-syxwec complex no.233 oral RxNorm: oral No Start Date Active primidone 50 mg tablet RxNorm: 567097 2 Tablet(s) PO BID No Start Date Active Prilosec 40 mg Capsule, delayed release RxNorm: 459327 1 Capsul e(s) PO QD No Start Date 03/18/2012 Inactive Prilosec 20 mg Cap RxNorm: 920889 1 Capsule(s) PO QHS No Start Date 0 01/02/2011 Inactive primidone 50 mg tablet RxNorm: 635396 1/2 Tablet(s) PO QHS for 1week then go full tab if needed No Start Date 05/01/2017 Inactive ProAir HFA 90 mcg/actuation aerosol inhaler RxNorm: 547777 2 Puff(s) INH Q4H as needed No Start Date 10/29/2017 Inactive clonazepam 0.5 mg tablet RxNorm: 594643 1/2 Tablet(s) PO BID No Sta rt Date 02/12/2017 Inactive Pepcid AC 10 mg Tab RxNorm: 012753 1 Tablet(s) PO QAM No Start Date 0 02/19/2011 Inactive Coreg Oral RxNorm: Oral No Start Date 01/12/2014 Inactive primidone 50 mg tablet RxNorm: 935669 1/2 Tablet(s) PO QD for 7 days then increase to 1 tablet at bedtime No Start Date 01/08/2017 Inactive Medrol (Jose) 4 mg tablets in a dose pack RxNorm: 204152 Tablet(s) PO As Directed No Start Date 01/12/2016 Inactive Plavix 75 mg tablet RxNorm: 906456 1 Tablet(s) PO QD No Start Date Inactive cyclobenzaprine 10 mg tablet RxNorm: 355867 1 Tablet(s) PO TID as needed for spasm No Start Date 07/03/2013 Inactive Bevespi Aerosphere 9 mcg-4.8 mcg HFA aerosol inhaler RxNorm: 4421899 2 Puff(s) INH BID No Start Date 02/18/2019 Inactive tramadol 50 mg tablet RxNorm: 983530 1-2 Tablet(s) PO TID as ne eded for pain No Start Date 01/12/2019 Inactive clonazepam 1 mg tablet RxNorm: 484942 1 Tablet(s) PO QAM No Start D ate 09/18/2018 Inactive hydrocodone-acetaminophen 5 mg-500 mg Tab RxNorm: 132546 2 Tablet(s) PO Q4-6H prn No Start Date 10/19/2010 Inactive lisinopril 20 mg Tab RxNorm: 063301 1/2 Tablet(s) PO QD No Start Da te 03/12/2011 Inactive Protonix 40 mg tablet,delayed release RxNorm: 954102 1 Tablet(s ) PO QD No Start Date 06/07/2014 Inactive Lipitor Oral RxNorm: Oral No Start Date 01/12/2014 Inactive primidone 50 mg tablet RxNorm: 010197 2 Tablet(s) PO QAM and 1 tablet at HS No Start Date 02/17/2019 Inactive hydrocodone-acetaminophen 10 mg-325 mg Tab RxNorm: 5626529 1-2 T ablet(s) PO QID No Start Date 02/13/2011 Inactive Ultram 50 mg tablet RxNorm: 006487 1-2 Tablet(s) PO QID as need ed for pain No Start Date 09/18/2012 Inactive Effient 10 mg Tab RxNorm: 187583 1 Tablet(s) PO QD No Start Date 01/2012 Inactive Bevespi Aerosphere 9 mcg-4.8 mcg HFA aerosol inhaler RxNorm: 0839613 2 Puff(s) INH BID No Start Date 10/29/2017 Inactive Neurontin Oral RxNorm: Oral No Start Date 01/12/2010 Inactive primidone 50 mg tablet RxNorm: 244642 1 Tablet(s) PO QD No Start Da te 01/12/2019 Inactive Chantix Starting Month Box 0.5 mg (11)-1 mg (42) Tabs in a Dose Pack RxNorm: 083235 Tablet(s) PO No Start Date 03/31/2012 Inactive atenolol 25 mg Tab RxNorm: 286468 1 Tablet(s) PO QD No Start Date 02/2012 Inactive Neurontin 600 mg Tab RxNorm: 518611 1 Tablet(s) PO QD No Start Date 0 03/16/2010 Inactive Nucynta 50 mg tablet RxNorm: 447357 1-2 Tablet(s) PO Q6H as nee ded for pain No Start Date 12/31/2012 Inactive simvastatin 40 mg Tab RxNorm: 165900 1 Tablet(s) PO QD No Start Date 03/21/2012 Inactive Medication Administered No Medication Administered data Immunizations Vaccine Codes Date Status Influenza CVX: 135 07/04/2017 Complete Results Observation Observation Code Item Item Code Result Date S [facility] Location COMPLETE BLOOD COUNT [id number] WBC 4.9 10e9/L 09/04/20 18 Unknown COMPLETE BLOOD COUNT [id number] RBC 4.42 10e12/L 2017 Unknown COMPLETE BLOOD COUNT 1192579 HEMOGLOBIN 13.4 g/dL 09/04/20 18 Unknown COMPLETE BLOOD COUNT [id number] HEMATOCRIT 40.5 % 09/04/20 18 Unknown COMPLETE BLOOD COUNT [id number] MCV 91.6 fL 8 Unknown COMPLETE BLOOD COUNT 7840215 MCH 30.3 pg 8 Unknown COMPLETE BLOOD COUNT 5329063 MCHC 33.1 g/dL 8 Unknown COMPLETE BLOOD COUNT 4392053 PLATELET COUNT 224 10e9/L Unknown COMPLETE BLOOD COUNT 0221240 Mean Plt Volume 9.9 fL Unknown COMPLETE BLOOD COUNT 9273578 Neut Auto 60.8 % 8 Unknown COMPLETE BLOOD COUNT 3948516 Lymph Auto 26.8 % 09/04/20 18 Unknown COMPLETE BLOOD COUNT 7941215 [place] Auto 10.4 % 8 Unknown COMPLETE BLOOD COUNT 1105979 RDW 12.8 % 8 Unknown COMPLETE BLOOD COUNT 1051969 Eos Auto 1.6 % 8 Unknown COMPLETE BLOOD COUNT 4591663 Baso Auto 0.4 % 8 Unknown COMPLETE BLOOD COUNT 3526803 Neutrophil Abs 2.98 10e9/L Unknown COMPLETE BLOOD COUNT [id number] Lymphocyte Abs 1.31 10e9/L Unknown COMPLETE BLOOD COUNT 4941979 Monocyte Abs 0.51 10e9/L 08/17 Unknown COMPLETE BLOOD COUNT [id number] Eosinophil Abs 0.08 10e9/L Unknown COMPLETE BLOOD COUNT 4958450 RDW-SD 41.6 fL 8 Unknown COMPLETE BLOOD COUNT [id number] Basophil Abs 0.02 10e9/L 08/17 Unknown COMPREHENSIVE METABOLIC 73005 AST 16 U/L 2017 Unknown COMPREHENSIVE METABOLIC 99384 ALT 8 U/L 2017 Unknown COMPREHENSIVE METABOLIC 45906 BUN 12 mg/dL 2017 Unknown COMPREHENSIVE METABOLIC 93456 ALBUMIN 4.4 g/dL 2017 Unknown COMPREHENSIVE METABOLIC 69925 CHLORIDE 107 mmol/L 09/04 Unknown COMPREHENSIVE METABOLIC 44575 Bili Total 1.0 mg/dL 09/04 Unknown COMPREHENSIVE METABOLIC 38602 ALK PHOS 58 U/L 2017 Unknown COMPREHENSIVE METABOLIC 12874 SODIUM 142 mmol/L 09/04 Unknown COMPREHENSIVE METABOLIC 54057 CREATININE 0.97 mg/dL 08/17 Unknown COMPREHENSIVE METABOLIC 70650 CALCIUM 9.2 mg/dL 2017 Unknown COMPREHENSIVE METABOLIC 06260 POTASSIUM 4.6 mmol/L 09/04 Unknown COMPREHENSIVE METABOLIC 77561 Total Protein 6.5 g/dL Unknown COMPREHENSIVE METABOLIC 20144 Glucose 96 mg/dL 2017 Unknown COMPREHENSIVE METABOLIC 36449 Bicarbonate 29 mmol/L 08/17 Unknown COMPREHENSIVE METABOLIC 85192 AGAP 6 mmol/L 2017 Unknown LIPID GROUP 46825 Cholesterol 182 mg/dL 09/04/2018 Unkno wn LIPID GROUP 23756 Triglyceride 84 mg/dL 09/04/2018 Unkn own LIPID GROUP 79656 HDL CHOLESTEROL 76 mg/dL 09/04/2018 U nknown LIPID GROUP 51832 Chol/HDL Ratio 2.39 ratio 09/04/2018 U nknown LIPID GROUP 93916 NON-HDL Chol 106 mg/dL 09/04/2018 Unkn own LIPID GROUP 20100 LDL Cholesterol 89 mg/dL 09/04/2018 U nknown GFR CALC 5010945 GFR Non Afr Amr >60 mL/min 09/04/2018 Un known GFR CALC 8316134 GFR Afr Amr >60 mL/min 09/04/2018 Unknow n THYROID STIMULATING HORMONE 63479 TSH 0.713 uIU/mL 09/04/2018 Unknown PSA EQUIMOLAR BARBIE 54636 PSA Total 0.66 ng/mL 8 Unknown A FOOD C P 9257980 [place] Cl Class 0 11/17/2017 Unknown A FOOD C P 3977747 [place] Ct <0.35 kU/L 11/17/2017 Unknow n A FOOD C P 1814505 [place] Cl Class 0 11/17/2017 Unkn own A FOOD C P 7165156 [place] Ct <0.35 kU/L 11/17/2017 Unk nown A FOOD C P 4861150 Egg White Cl Class 0 11/17/2017 Unkno wn A FOOD C P 3992567 Egg White Ct <0.35 kU/L 11/17/2017 Unkn own A FOOD C P 9811732 Egg Yolk Cl Class 0 11/17/2017 Unknow n A FOOD C P 1637322 Egg Yolk Ct <0.35 kU/L 11/17/2017 Unkno wn A FOOD C P 7162554 Cow Milk Cl Class 0 11/17/2017 Unknow n A FOOD C P 2675765 Cow Milk Ct <0.35 kU/L 11/17/2017 Unkno wn A FOOD C P 6350178 Peanut Cl Class 0 11/17/2017 Unknown A FOOD C P 9419077 Peanut Ct <0.35 kU/L 11/17/2017 Unknown A FOOD C P 5457628 Shrimp Cl Class 0 11/17/2017 Unknown A FOOD C P 1218507 Shrimp Ct <0.35 kU/L 11/17/2017 Unknown A FOOD C P 2906290 [place] Cl Class 0 11/17/2017 Unknown A FOOD C P 6675406 [place] Ct <0.35 kU/L 11/17/2017 Unknow n A FOOD C P 0067665 Wheat Cl Class 0 11/17/2017 Unknown A FOOD C P 9297151 Wheat Ct <0.35 kU/L 11/17/2017 Unknown A FOOD C P 6821466 Potato Cl Class 0 11/17/2017 Unknown A FOOD C P 8301018 Potato Ct <0.35 kU/L 11/17/2017 Unknown A FOOD C P 5947511 Beef Cl Class 2 11/17/2017 Unknown A FOOD C P 2879783 Beef Ct 0.88 kU/L 11/17/2017 Unknown A FOOD C P 6014691 [place] Cl Class 0 11/17/2017 Unknown A FOOD C P 8444497 [place] Ct <0.35 kU/L 11/17/2017 Unknown A FOOD C P 0777707 Pork Cl Class 0 11/17/2017 Unknown A FOOD C P 1784482 Pork Ct <0.35 kU/L 11/17/2017 Unknown A FOOD C P 7643491 [place] Cl Class 0 11/17/2017 Unknown A FOOD C P 9731185 [place] Ct <0.35 kU/L 11/17/2017 Unknown A FOOD C P 6657623 [place] Cl Class 0 11/17/2017 Unkn own A FOOD C P [id number] [place] Ct <0.35 kU/L 11/17/2017 Unk nown A FOOD C P [id number] Tom[place] Cl Class 0 11/17/2017 Unknown A FOOD C P 6345601 [place] Ct <0.35 kU/L 11/17/2017 Unknown A FOOD C P 7671979 T[place] Cl Class 0 11/17/2017 Unknown A FOOD C P 7709661 Tuna Ct <0.35 kU/L 11/17/2017 Unknown A FOOD C P 7007827 [place] CL Class 0 11/17/2017 Unknown A FOOD C P [id number] [place] <0.35 kU/L 11/17/2017 Unknown A FOOD C P 2462508 [place] Cl Class 0 11/17/2017 Unknown A FOOD C P 4441440 [place] Ct <0.35 kU/L 11/17/2017 Unknown A FOOD C P 2611037 Oat Cl Class 0 11/17/2017 Unknown A FOOD C P 7952609 Oat Ct <0.35 kU/L 11/17/2017 Unknown A FOOD C P 6279252 [place] Cl Class 0 11/17/2017 Unknown A FOOD C P 0412520 [place] Ct <0.35 kU/L 11/17/2017 Unknown A FOOD C P 8952371 [place] Meat CL Class 0 11/17/2017 Un known A FOOD C P 2141953 [place] Meat Ct <0.35 kU/L 11/17/2017 U nknown A FOOD C P 5696332 [place] Cl Class 0 11/17/2017 Unknown A FOOD C P 4912262 [place] Ct <0.35 kU/L 11/17/2017 Unknown A FOOD C P 5328804 Pec[place] Meat Cl Class 0 11/17/2017 Unkn own A FOOD C P [id number] [place]ec[place] Meat Ct <0.35 kU/L 11/17/2017 Unk nown A NUTS PNL 7523432 Peanut Cl Class 0 11/17/2017 Unknown A NUTS PNL 7898907 Peanut Ct <0.35 kU/L 11/17/2017 Unknown A NUTS PNL 6017890 [place] Meat Cl Class 0 11/17/2017 Unk nown A NUTS PNL 6273899 [place] [facility] <0.35 kU/L 11/17/2017 Un known A NUTS PNL 2746364 [place] Meat Cl Class 0 11/17/2017 Unkn own A NUTS PNL 9511459 [place] Ct <0.35 kU/L 11/17/2017 Unk nown A NUTS PNL [id number] [place] Cl Class 0 11/17/2017 Unknown A NUTS PNL 7307584 [place] [address] <0.35 kU/L 11/17/2017 Unknown A NUTS PNL 9936030 [place] Cl Class 0 11/17/2017 Unknow n A NUTS PNL 5946306 [place] Ct <0.35 kU/L 11/17/2017 Unkno wn A NUTS PNL 4869095 [place] Cl Class 0 11/17/2017 Unkno wn A NUTS PNL 7505532 [place] Ct <0.35 kU/L 11/17/2017 Unkn own A NUTS PNL 4410373 [place] Cl Class 0 11/17/2017 Unknown A NUTS PNL 4949204 [place] Ct <0.35 kU/L 11/17/2017 Unknown A NUTS PNL 9795504 [place] Cl Class 0 11/17/2017 Unkno wn A NUTS PNL 9130557 [place] Ct <0.35 kU/L 11/17/2017 Unkn own A NUTS PNL 9378942 Allergen Interp See Note 11/17/2017 Un known A FRT/VG P 4297507 [place] Cl Class 0 11/17/2017 Unkn own A FRT/VG P 4451354 [place] Ct <0.35 kU/L 11/17/2017 Unk nown A FRT/VG P [id number] [place] Cl Class 0 11/17/2017 Unknown A FRT/VG P 2956913 [place]ato Ct <0.35 kU/L 11/17/2017 Unknown A FRT/VG P [id number] [place] Cl Class 0 11/17/2017 Unkn own A FRT/VG P 7743708 [place] Ct <0.35 kU/L 11/17/2017 Unk nown A FRT/VG P 8489337 [place] Cl Class 0 11/17/2017 Unknown A FRT/VG P 2852013 [place] Ct <0.35 kU/L 11/17/2017 Unknown A FRT/VG P 4791872 [place] Cl Class 0 11/17/2017 Unknown A FRT/VG P 3066071 [place] Ct <0.35 kU/L 11/17/2017 Unknown A FRT/VG P 4539408 [place] Cl Class 1 11/17/2017 Unknown A FRT/VG P 9326173 [place] Ct 0.48 kU/L 11/17/2017 Unknown A FRT/VG P [id number] [place] Cl Class 0 11/17/2017 Unk nown A FRT/VG P 7816714 [place] Ct <0.35 kU/L 11/17/2017 Un known A FRT/VG P 3180480 [place] Cl Class 0 11/17/2017 Unk nown A FRT/VG P 6704894 [place] Ct <0.35 kU/L 11/17/2017 Un known A FRT/VG P [id number] [place] Cl Class 0 11/17/2017 Unknown A FRT/VG P 2355545 [place] Ct <0.35 kU/L 11/17/2017 Unknown A FRT/VG P 1215722 [place] Cl Class 0 11/17/2017 Unknown A FRT/VG P 6063068 Pea Ct <0.35 kU/L 11/17/2017 Unknown A FRT/VG P 2927591 [place] Cl Class 0 11/17/2017 Unkn own A FRT/VG P 1872790 [place] Ct <0.35 kU/L 11/17/2017 Unk nown A FRT/VG P 4533096 Swt [place] Cl Class 0 11/17/2017 Unkn own A FRT/VG P 3466930 Swt [place] Ct <0.35 kU/L 11/17/2017 Unk nown THYROID STIMULATING HORMONE 06236 TSH 1.371 uIU/mL 09/03/2017 Unknown FREE T4 09509 T4 Free 1.26 ng/dL 09/03/2017 Unknown ASSAY TRIIODOTHYRONINE (T3) 67215 T3 Total 0.9 ng/mL Unknown COMPLETE BLOOD COUNT 7638035 WBC 5.9 10e9/L 07/31/20 17 Unknown COMPLETE BLOOD COUNT 0441470 RBC 4.64 10e12/L 2016 Unknown COMPLETE BLOOD COUNT 8555260 HEMOGLOBIN 14.2 g/dL 07/31/20 17 Unknown COMPLETE BLOOD COUNT 9056099 HEMATOCRIT 42.1 % 07/31/20 17 Unknown COMPLETE BLOOD COUNT 5258528 MCV 90.7 fL 7 Unknown COMPLETE BLOOD COUNT 6256697 MCH 30.6 pg 7 Unknown COMPLETE BLOOD COUNT 9312931 MCHC 33.7 g/dL 7 Unknown COMPLETE BLOOD COUNT 8079083 PLATELET COUNT 195 10e9/L Unknown COMPLETE BLOOD COUNT 2415166 Mean Plt Volume 10.0 fL Unknown COMPLETE BLOOD COUNT 3994794 Neut Auto 47.5 % 7 Unknown COMPLETE BLOOD COUNT 1061958 Lymph Auto 37.4 % 07/31/20 17 Unknown COMPLETE BLOOD COUNT 5052816 [place] Auto 11.7 % 7 Unknown COMPLETE BLOOD COUNT 8935010 Eos Auto 3.2 % 7 Unknown COMPLETE BLOOD COUNT 9996328 RDW 12.8 % 7 Unknown COMPLETE BLOOD COUNT 0990940 Baso Auto 0.2 % 7 Unknown COMPLETE BLOOD COUNT 5583727 Neutrophil Abs 2.80 10e9/L Unknown COMPLETE BLOOD COUNT 6027546 Lymphocyte Abs 2.21 10e9/L Unknown COMPLETE BLOOD COUNT 1323753 Monocyte Abs 0.69 10e9/L 07/18 Unknown COMPLETE BLOOD COUNT 5530376 Eosinophil Abs 0.19 10e9/L Unknown COMPLETE BLOOD COUNT 9607518 RDW-SD 41.6 fL 7 Unknown COMPLETE BLOOD COUNT 6751102 Basophil Abs 0.01 10e9/L 07/18 Unknown LIPID GROUP 07502 Cholesterol 186 mg/dL 07/31/2017 Unkno wn LIPID GROUP 71479 Triglyceride 129 mg/dL 07/31/2017 Unkn own LIPID GROUP 72844 HDL CHOLESTEROL 79 mg/dL 07/31/2017 U nknown LIPID GROUP 89117 Chol/HDL Ratio 2.35 ratio 07/31/2017 U nknown LIPID GROUP 86295 NON-HDL Chol 107 mg/dL 07/31/2017 Unkn own LIPID GROUP 20428 LDL Cholesterol 81 mg/dL 07/31/2017 U nknown GFR CALC 3719765 GFR Non Afr Amr >60 mL/min 07/31/2017 Un known GFR CALC 9097738 GFR Afr Amr >60 mL/min 07/31/2017 Unknow n COMPREHENSIVE METABOLIC 98131 AST 19 U/L 2016 Unknown COMPREHENSIVE METABOLIC 16963 ALT 12 U/L 2016 Unknown COMPREHENSIVE METABOLIC 12819 BUN 15 mg/dL 2016 Unknown COMPREHENSIVE METABOLIC 95882 ALBUMIN 4.4 g/dL 2016 Unknown COMPREHENSIVE METABOLIC 71871 CHLORIDE 102 mmol/L 07/31 Unknown COMPREHENSIVE METABOLIC 51111 Bili Total 0.9 mg/dL 07/31 Unknown COMPREHENSIVE METABOLIC 99331 ALK PHOS 53 U/L 2016 Unknown COMPREHENSIVE METABOLIC 91621 SODIUM 138 mmol/L 07/31 Unknown COMPREHENSIVE METABOLIC 16434 CREATININE 1.06 mg/dL 07/18 Unknown COMPREHENSIVE METABOLIC 98951 CALCIUM 9.3 mg/dL 2016 Unknown COMPREHENSIVE METABOLIC 74793 POTASSIUM 4.0 mmol/L 07/31 Unknown COMPREHENSIVE METABOLIC 65627 Total Protein 6.8 g/dL Unknown COMPREHENSIVE METABOLIC 12005 Glucose 86 mg/dL 2016 Unknown COMPREHENSIVE METABOLIC 01829 Bicarbonate 28 mmol/L 07/18 Unknown COMPREHENSIVE METABOLIC 14375 AGAP 8 mmol/L 2016 Unknown COMPREHENSIVE METABOLIC 73144 AST 18 U/L 2015 Unknown COMPREHENSIVE METABOLIC 47288 ALT 9 U/L 2015 Unknown COMPREHENSIVE METABOLIC 13375 BUN 11 mg/dL 2015 Unknown COMPREHENSIVE METABOLIC 57557 ALBUMIN 4.2 g/dL 2015 Unknown COMPREHENSIVE METABOLIC 22173 CHLORIDE 104 mmol/L 05/19 Unknown COMPREHENSIVE METABOLIC 17712 Bili Total 1.2 mg/dL 05/19 Unknown COMPREHENSIVE METABOLIC 94781 ALK PHOS 54 U/L 2015 Unknown COMPREHENSIVE METABOLIC 05084 SODIUM 140 mmol/L 05/19 Unknown COMPREHENSIVE METABOLIC 57099 CREATININE 1.03 mg/dL 10/2015 Unknown COMPREHENSIVE METABOLIC 51931 CALCIUM 9.3 mg/dL 2015 Unknown COMPREHENSIVE METABOLIC 09776 POTASSIUM 4.9 mmol/L 05/19 Unknown COMPREHENSIVE METABOLIC 29996 Total Protein 6.7 g/dL Unknown COMPREHENSIVE METABOLIC 51054 Glucose 92 mg/dL 2015 Unknown COMPREHENSIVE METABOLIC 41566 Bicarbonate 28 mmol/L 10/2015 Unknown COMPREHENSIVE METABOLIC 45613 AGAP 8 mmol/L 2015 Unknown THYROID STIMULATING HORMONE 69057 TSH 1.545 uIU/mL 05/19/2016 Unknown GFR CALC 8775054 GFR Non Afr Amr >60 mL/min 05/19/2016 Un known GFR CALC 8562228 GFR Afr Amr >60 mL/min 05/19/2016 Unknow n VITAMIN B 12 08093 VITAMIN B12 298 pg/mL 05/19/2016 Unkn own COMPLETE BLOOD COUNT 3644807 WBC 5.2 10e9/L 05/19/20 16 Unknown COMPLETE BLOOD COUNT 3807424 RBC 4.34 10e12/L 2015 Unknown COMPLETE BLOOD COUNT 9382026 HEMOGLOBIN 12.9 g/dL 05/19/20 16 Unknown COMPLETE BLOOD COUNT 0952693 HEMATOCRIT 38.9 % 05/19/20 16 Unknown COMPLETE BLOOD COUNT 5421628 MCV 89.6 fL 6 Unknown COMPLETE BLOOD COUNT 2431511 MCH 29.7 pg 6 Unknown COMPLETE BLOOD COUNT 2941380 MCHC 33.2 g/dL 6 Unknown COMPLETE BLOOD COUNT 2801365 PLATELET COUNT 200 10e9/L 10/2015 Unknown COMPLETE BLOOD COUNT 3587671 Mean Plt Volume 10.1 fL 10/2015 Unknown COMPLETE BLOOD COUNT 8709631 Neut Auto 45.4 % 6 Unknown COMPLETE BLOOD COUNT 3896736 Lymph Auto 35.6 % 05/19/20 16 Unknown COMPLETE BLOOD COUNT 3776460 [place] Auto 11.9 % 6 Unknown COMPLETE BLOOD COUNT 5804382 RDW 12.7 % 6 Unknown COMPLETE BLOOD COUNT 8934058 Eos Auto 6.7 % 6 Unknown COMPLETE BLOOD COUNT 0931301 Baso Auto 0.4 % 6 Unknown COMPLETE BLOOD COUNT 8552814 Neutrophil Abs 2.36 10e9/L Unknown COMPLETE BLOOD COUNT 4534753 Lymphocyte Abs 1.85 10e9/L Unknown COMPLETE BLOOD COUNT 2675612 Monocyte Abs 0.62 10e9/L 10/2015 Unknown COMPLETE BLOOD COUNT 2416893 Eosinophil Abs 0.35 10e9/L Unknown COMPLETE BLOOD COUNT 3261473 RDW-SD 40.6 fL 6 Unknown COMPLETE BLOOD COUNT 5045964 Basophil Abs 0.02 10e9/L 10/2015 Unknown LIPID GROUP 35832 Cholesterol 197 mg/dL 05/19/2016 Unkno wn LIPID GROUP 03924 Triglyceride 92 mg/dL 05/19/2016 Unkn own LIPID GROUP 27259 HDL CHOLESTEROL 58 mg/dL 05/19/2016 U nknown LIPID GROUP 36702 Chol/HDL Ratio 3.40 ratio 05/19/2016 U nknown LIPID GROUP 80720 NON-HDL Chol 139 mg/dL 05/19/2016 Unkn own LIPID GROUP 07410 LDL Cholesterol 121 mg/dL 05/19/2016 U nknown FREE T4 94396 T4 Free 1.19 ng/dL 05/19/2016 Unknown COMPREHENSIVE METABOLIC 91648 AST 19 U/L 2014 Unknown COMPREHENSIVE METABOLIC 78171 ALT 10 IU/L 2014 Unknown COMPREHENSIVE METABOLIC 20681 BUN 20 MG/DL 2014 Unknown COMPREHENSIVE METABOLIC 39894 ALBUMIN 4.4 GM/DL 2014 Unknown COMPREHENSIVE METABOLIC 37523 CHLORIDE 104 MMOL/L 04/05 Unknown COMPREHENSIVE METABOLIC 96885 BILI TOT 2.2 MG/DL 2014 Unknown COMPREHENSIVE METABOLIC 44873 ALK PHOS 55 U/L 2014 Unknown COMPREHENSIVE METABOLIC 76208 SODIUM 138 MMOL/L 04/05 Unknown COMPREHENSIVE METABOLIC 04765 CREATININE 1.04 MG/DL 03/18 Unknown COMPREHENSIVE METABOLIC 13535 CALCIUM 9.3 MG/DL 2014 Unknown COMPREHENSIVE METABOLIC 25806 POTASSIUM 4.5 MMOL/L 04/05 Unknown COMPREHENSIVE METABOLIC 83982 PROT TOT 6.7 GM/DL 2014 Unknown COMPREHENSIVE METABOLIC 52613 Glucose 77 MG/DL 2014 Unknown COMPREHENSIVE METABOLIC 85099 BICARB 25 MMOL/L 2014 Unknown COMPREHENSIVE METABOLIC 20119 ANION GAP 9 MEQ/L 2014 Unknown GFR CALC 2073381 GFR AA >60 ML/MIN 04/05/2015 Unknown GFR CALC 2225774 GFR NON-AA >60 ML/MIN 04/05/2015 Unknown LIPID GROUP 95300 HDL TEST 60 MG/DL 04/05/2015 Unknown LIPID GROUP 29476 TRIG 70 MG/DL 04/05/2015 Unknown LIPID GROUP 47265 TEST LDL 137 MG/DL 04/05/2015 Unknown LIPID GROUP 69500 CHOL 211 MG/DL 04/05/2015 Unknown LIPID GROUP 13818 RCHOL/HDL 3.52 RATIO 04/05/2015 Unknow n LIPID GROUP 69258 NON-HDL CH 151 MG/DL 04/05/2015 Unknow n COMPLETE BLOOD COUNT 6595690 WBC 5.3 10e9/L 04/05/20 15 Unknown COMPLETE BLOOD COUNT 5759970 RBC 4.42 10e12/L 2014 Unknown COMPLETE BLOOD COUNT 7428877 HGB 13.4 g/dL 5 Unknown COMPLETE BLOOD COUNT 8250393 HCT DET 39.6 % 5 Unknown COMPLETE BLOOD COUNT 2792761 MCV 89.6 fL 5 Unknown COMPLETE BLOOD COUNT 4064288 MCH 30.3 pg 5 Unknown COMPLETE BLOOD COUNT 9785955 MCHC 33.8 g/dL 5 Unknown COMPLETE BLOOD COUNT 7814583 PLT 201 10e9/L 04/05/20 15 Unknown COMPLETE BLOOD COUNT 3562447 MPV 10.3 fL 5 Unknown COMPLETE BLOOD COUNT 1787791 LUPE % 56.4 % 5 Unknown COMPLETE BLOOD COUNT 8459982 LY % 24.8 % 5 Unknown COMPLETE BLOOD COUNT 6219720 MON % 12.8 % 5 Unknown COMPLETE BLOOD COUNT 3340423 EOS % 5.4 % 5 Unknown COMPLETE BLOOD COUNT 4347958 BASO % 0.6 % 5 Unknown COMPLETE BLOOD COUNT 4427448 RDW 13.2 % 5 Unknown COMPLETE BLOOD COUNT 3454424 ABS LUPE 2.99 10e9/L 015 Unknown COMPLETE BLOOD COUNT 3556855 ABS LYMPH 1.31 10e9/L 015 Unknown COMPLETE BLOOD COUNT 1472473 ABS MONO 0.68 10e9/L 015 Unknown COMPLETE BLOOD COUNT 2094757 ABS EOS 0.29 10e9/L 015 Unknown COMPLETE BLOOD COUNT 6853125 ABS BASO 0.03 10e9/L 015 Unknown COMPLETE BLOOD COUNT 7568470 RDW-SD 42.3 fL 5 Unknown LIPID GROUP 16111 HDL TEST 51 MG/DL 07/19/2012 Unknown LIPID GROUP 37090 TRIG 129 MG/DL 07/19/2012 Unknown LIPID GROUP 43318 TEST LDL 98 MG/DL 07/19/2012 Unknown LIPID GROUP 33190 CHOL 175 MG/DL 07/19/2012 Unknown LIPID GROUP 29531 RCHOL/HDL 3.43 RATIO 07/19/2012 Unknow n COMPREHENSIVE METABOLIC 01613 AST 18 U/L 2011 Unknown COMPREHENSIVE METABOLIC 36212 ALT 12 IU/L 2011 Unknown COMPREHENSIVE METABOLIC 29663 BUN 10 MG/DL 2011 Unknown COMPREHENSIVE METABOLIC 94990 ALBUMIN 4.1 GM/DL 2011 Unknown COMPREHENSIVE METABOLIC 72268 CHLORIDE 103 MMOL/L 07/19 Unknown COMPREHENSIVE METABOLIC 48430 BILI TOT 0.9 MG/DL 2011 Unknown COMPREHENSIVE METABOLIC 21368 ALK PHOS 62 U/L 2011 Unknown COMPREHENSIVE METABOLIC 52490 SODIUM 138 MMOL/L 07/19 Unknown COMPREHENSIVE METABOLIC 09322 CREATININE 1.08 MG/DL 10/2011 Unknown COMPREHENSIVE METABOLIC 44406 CALCIUM 9.1 MG/DL 2011 Unknown COMPREHENSIVE METABOLIC 33012 POTASSIUM 4.2 MMOL/L 07/19 Unknown COMPREHENSIVE METABOLIC 85427 PROT TOT 6.7 GM/DL 2011 Unknown COMPREHENSIVE METABOLIC 89852 Glucose 101 MG/DL 2011 Unknown COMPREHENSIVE METABOLIC 89219 BICARB 27 MMOL/L 2011 Unknown COMPREHENSIVE METABOLIC 02185 ANION GAP 8 MEQ/L 2011 Unknown GFR CALC 3096014 GFR AA >60 ML/MIN 07/19/2012 Unknown GFR CALC 2253441 GFR NON-AA >60 ML/MIN 07/19/2012 Unknown Procedures Procedure Codes Date THER/PROPH/DIAG INJ SC/IM CPT-4: 51219 01/13/2019 TRIAMCINOLONE ACET INJ NOS CPT-4: J3301 01/13/2019 DEXAMETHASONE SODIUM PHOS CPT-4: J1100 01/13/2019 ROUTINE VENIPUNCTURE CPT-4: 20074 09/04/2018 COMPREHEN METABOLIC PANEL CPT-4: 39992 09/04/2018 COMPLETE CBC W/AUTO DIFF WBC CPT-4: 74092 09/04/2018 LIPID PANEL CPT-4: 83455 09/04/2018 ASSAY OF PSA TOTAL CPT-4: 43837 09/04/2018 ASSAY THYROID STIM HORMONE CPT-4: 44341 09/04/2018 URINALYSIS NONAUTO W/O SCOPE CPT-4: 90672 05/15/2018 ROUTINE VENIPUNCTURE CPT-4: 97817 11/16/2017 A FRT/VG P CPT-4: 9827505 11/16/2017 A FOOD C P CPT-4: 8240580 11/16/2017 A NUTS PNL CPT-4: 1406425 11/16/2017 THER/PROPH/DIAG INJ SC/IM CPT-4: 17492 11/06/2017 TRIAMCINOLONE ACET INJ NOS CPT-4: J3301 11/06/2017 DEXAMETHASONE SODIUM PHOS CPT-4: J1100 11/06/2017 ROUTINE VENIPUNCTURE CPT-4: 14808 09/03/2017 ASSAY OF FREE THYROXINE CPT-4: 89197 09/03/2017 ASSAY THYROID STIM HORMONE CPT-4: 53400 09/03/2017 ASSAY TRIIODOTHYRONINE (T3) CPT-4: 48926 09/03/2017 ROUTINE VENIPUNCTURE CPT-4: 84359 07/31/2017 COMPREHEN METABOLIC PANEL CPT-4: 62429 07/31/2017 COMPLETE CBC W/AUTO DIFF WBC CPT-4: 79588 07/31/2017 LIPID PANEL CPT-4: 93094 07/31/2017 FLU VACC PRSV FREE INC ANTIG 65 AND OLDER CPT-4: 44652 07/04/2017 ADMIN INFLUENZA VIRUS VAC CPT-4: G0008 07/04/2017 ROUTINE VENIPUNCTURE CPT-4: 78626 02/26/2017 ASSAY THYROID STIM HORMONE CPT-4: 37479 02/26/2017 COMPREHEN METABOLIC PANEL CPT-4: 50778 02/26/2017 COMPLETE CBC W/AUTO DIFF WBC CPT-4: 47375 02/26/2017 LIPID PANEL CPT-4: 98455 02/26/2017 ASSAY OF PSA TOTAL CPT-4: 51507 02/26/2017 FLUZONE, 5ML (Medicare) CPT-4: Q2038 06/28/2016 ADMIN INFLUENZA VIRUS VAC CPT-4: G0008 06/28/2016 ROUTINE VENIPUNCTURE CPT-4: 90702 05/19/2016 ASSAY OF FREE THYROXINE CPT-4: 85409 05/19/2016 ASSAY THYROID STIM HORMONE CPT-4: 88274 05/19/2016 COMPREHEN METABOLIC PANEL CPT-4: 27713 05/19/2016 COMPLETE CBC W/AUTO DIFF WBC CPT-4: 89500 05/19/2016 LIPID PANEL CPT-4: 97072 05/19/2016 VITAMIN B-12 CPT-4: 04332 05/19/2016 PPPS, initial visit CPT-4: G0438 05/10/2016 ROUTINE VENIPUNCTURE CPT-4: 66073 04/05/2015 ASSAY THYROID STIM HORMONE CPT-4: 66616 04/05/2015 COMPREHEN METABOLIC PANEL CPT-4: 90487 04/05/2015 COMPLETE CBC W/AUTO DIFF WBC CPT-4: 15244 04/05/2015 LIPID PANEL CPT-4: 45745 04/05/2015 ASSAY OF PSA TOTAL CPT-4: 26158 04/05/2015 ROUTINE VENIPUNCTURE CPT-4: 19250 07/19/2012 COMPREHEN METABOLIC PANEL CPT-4: 32557 07/19/2012 LIPID PANEL CPT-4: 77250 07/19/2012 ELECTROCARDIOGRAM COMPLETE CPT-4: 05326 03/22/2012 Vital Signs Date Vital 09/24/2019 Blood Pressure 1: 125/72 Code: 8480-6 BMI: 19.8 Code: 20976-6 Heart Rate 1: 88 bpm Height: 5'11" [...] 1: 102/60 Code: 8480-6 BMI: 19.1 Code: 83052-7 Heart Rate 1: 82 bpm Height: 5'11" Respiratory Rate: 22 bpm SpO2: 97% Tempera ture: 36.4 (C) / 97.6 (F) Weight: 137 lbs 04/25/2018 Blood Pressure 1: 118/64 Code: 8480-6 BMI: 19.2 Code: 09576-8 Heart Rate 1: 98 bpm Height: 5'11" Respiratory Rate: 20 bpm SpO2: 99% Tempera ture: 36.4 (C) / 97.6 (F) Weight: 138 lbs 11/06/2017 Blood Pressure 1: 108/68 Code: 8480-6 BMI: 18.5 Code: 85605-4 Heart Rate 1: 68 bpm Height: 5'11" Respiratory Rate: 20 bpm SpO2: 96% Tempera ture: 36.8 (C) / 98.2 (F) Weight: 133 lbs 09/03/2017 Blood Pressure 1: 122/64 Code: 8480-6 BMI: 17.6 Code: 81901-0 Heart Rate 1: 90 bpm Height: 5'11" Respiratory Rate: 20 bpm SpO2: 98% Tempera ture: 36.4 (C) / 97.6 (F) Weight: 126 lbs 08/21/2017 Blood Pressure 1: 114/80 Code: 8480-6 BMI: 17.9 Code: 93706-9 Heart Rate 1: 80 bpm Height: 5'11" Respiratory Rate: 20 bpm SpO2: 95% Tempera ture: 36.6 (C) / 97.9 (F) Weight: 128 lbs 02/13/2017 Blood Pressure 1: 122/60 Code: 8480-6 BMI: 18.5 Code: 62350-3 Heart Rate 1: 76 bpm Height: 5'11" Respiratory Rate: 20 bpm SpO2: 96% Tempera ture: 36.9 (C) / 98.4 (F) Weight: 133 lbs 11/23/2016 Blood Pressure 1: 126/70 Code: 8480-6 BMI: 18.5 Code: 98183-3 Heart Rate 1: 100 bpm Height: 5'11" Respiratory Rate: 20 bpm SpO2: 96% Tempera ture: 37.1 (C) / 98.8 (F) Weight: 133 lbs 05/23/2016 Blood Pressure 1: 128/82 Code: 8480-6 BMI: 18.5 Code: 05565-1 Heart Rate 1: 88 bpm Height: 5'11" Respiratory Rate: 20 bpm Temperature: 36 .7 (C) / 98.0 (F) Weight: 133 lbs 05/10/2016 Blood Pressure 1: 146/70 Code: 8480-6 BMI: 18.5 Code: 89580-0 Heart Rate 1: 84 bpm Height: 5'11" Respiratory Rate: 20 bpm Temperature: 36 .7 (C) / 98.1 (F) Weight: 133 lbs 04/01/2015 Blood Pressure 1: 102/60 Code: 8480-6 BMI: 18.5 Code: 72674-8 Heart Rate 1: 64 bpm Height: 5'11" Respiratory Rate: 20 bpm Temperature: 36 .8 (C) / 98.2 (F) Weight: 133 lbs 01/13/2014 Blood Pressure 1: 124/78 Code: 8480-6 BMI: 19.8 Code: 71682-8 Heart Rate 1: 76 bpm Height: 5'11" Respiratory Rate: 20 bpm Temperature: 36 .8 (C) / 98.2 (F) Weight: 142 lbs 04/03/2012 Blood Pressure 1: 106/76 Code: 8480-6 BMI: 20.9 Code: 23059-1 Heart Rate 1: 84 bpm Height: 5'11" Respiratory Rate: 20 bpm Temperature: 36 .7 (C) / 98.0 (F) Weight: 150 lbs 12/20/2011 Blood Pressure 1: 116/60 Code: 8480-6 BMI: 20.1 Code: 67289-0 Heart Rate 1: 80 bpm Height: 5'11" Respiratory Rate: 20 bpm Temperature: 36 .4 (C) / 97.6 (F) Weight: 144 lbs 10/24/2011 Blood Pressure 1: 132/74 Code: 8480-6 BMI: 19.7 Code: 37573-7 Heart Rate 1: 96 bpm Height: 5'11" [...] 04/05/2015 follow up 04/01/2015 follow up 01/13/2014 [facility] from Justin Palacio'justin in November 2012 lab draw 07/19/2012 follow up 04/03/2012 S/P stent placement in LAD, changed effient to plavix hip pain 12/20/2011 dyskinesia or tremor 10/24/2011 follow up 03/13/2011 started on effient, zocor, and atenolol follow up 02/20/2011 Hospital Fwup/Dr Christian rojas follow up 02/23/2010 hosp [facility], appt with Dr Bajwa 03/22/10 insomnia 01/12/2010 problems falling and staying asleep, takes nortriptyline Encounters Encounter Performer Location Codes Date ([id number]) OFFICE/OUTPATIENT VISIT EST Diagnosis: Encounter for therapeutic drug level monitoring[ICD10: Z51.81] Diagnosis: Essential tremor[ICD10: G25.0] Verna Alvarez [employer] CPT-4: 10618 09/24/2019 ([id number]) OFFICE/OUTPATIENT VISIT EST Diagnosis: Noninfective gastroenteritis and colitis, unspecified[ICD10: K52.9] Diagnosis: Hemorrhage of anus and rectum[ICD10: K62.5] Vonnie Loza [employer] CPT-4: 81730 05/26/2019 ([id number]) OFFICE/OUTPATIENT VISIT EST Diagnosis: Other intervertebral disc degeneration, 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] Diagnosis: Other forms of dyspnea[ICD10: R06.09] Vonnie Vásquez KARIE Loza [employer] CPT-4: 66121 03/17/2019 OFFICE/OUTPATIENT VISIT EST Diagnosis: Other intervertebral disc degeneration, 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] Diagnosis: Other symptoms and signs involving the musculoskeletal system[ICD10: R29.898] Vonnie Loza [employer] CPT-4: 33142 02/18/2019 ([id number]) OFFICE/OUTPATIENT VISIT EST Diagnosis: Other allergic rhinitis[ICD10: J30.89] Akilah GASPAR [email or web address] CPT-4: 56592 01/13/2019 ([id number]) NURSE/OUTPATIENT VISIT EST Diagnosis: Mixed hyperlipidemia[ICD10: E78.2] Diagnosis: Essential (primary) hypertension[ICD10: I10] Diagnosis: Encounter for screening for malignant neoplasm of prostate[ICD10: Z12.5] Diagnosis: Encounter for general adult medical examination with abnormal findings[ICD10: Z00.01] Diagnosis: Benign prostatic hyperplasia without lower urinary tract symptoms[ICD10: N40.0] Vonnie COLMENARES [employer] CPT-4: 84319 09/04/2018 ([id number]) OFFICE/OUTPATIENT VISIT EST Diagnosis: Otorrhea, left ear[ICD10: H92.12] Diagnosis: Impacted cerumen, right ear[ICD10: H61.21] Verna MATHEWS DO [facility] CPT-4: 95186 09/03/2018 ([id number]) OFFICE/OUTPATIENT VISIT EST Diagnosis: Other intervertebral disc degeneration, 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] Diagnosis: Primary insomnia[ICD10: F51.01] Diagnosis: Essential tremor[ICD10: G25.0] Vonnie MATHEWS DO [facility] CPT-4: 92567 08/26/2018 ([id number]) OFFICE/OUTPATIENT VISIT EST Diagnosis: Pelvic and perineal pain[ICD10: R10.2] Verna MATHEWS [employer] [facility] CPT-4: 43797 05/15/2018 ([id number]) OFFICE/OUTPATIENT VISIT EST Diagnosis: Encounter for therapeutic drug level monitoring[ICD10: Z51.81] Diagnosis: Acute sinusitis, unspecified[ICD10: J01.90] Diagnosis: Other intervertebral disc degeneration, 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] Diagnosis: Essential tremor[ICD10: G25.0] Diagnosis: Raynaud's syndrome without gangrene[ICD10: I73.00] Verna MATHEWS [employer] [facility] CPT-4: 61800 04/25/2018 ([id number]) OFFICE/OUTPATIENT VISIT EST Diagnosis: Idiopathic urticaria[ICD10: L50.1] Diagnosis: Other urticaria[ICD10: L50.8] Vonnie MATHEWS [employer] [facility] CPT-4: 29536 11/16/2017 ([id number]) OFFICE/OUTPATIENT VISIT EST Diagnosis: Idiopathic urticaria[ICD10: L50.1] Diagnosis: Other urticaria[ICD10: L50.8] Diagnosis: Other forms of dyspnea[ICD10: R06.09] Vonnie BREWERNE Denia MATHEWS [employer] [facility] CPT-4: 95147 11/06/2017 ([id number]) OFFICE/OUTPATIENT VISIT EST Diagnosis: Dyspnea, unspecified[ICD10: R06.00] Diagnosis: Abnormal weight loss[ICD10: R63.4] Vonnie LUCIA [employer] MATHEWS [employer] 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] Diagnosis: Mixed hyperlipidemia[ICD10: E78.2] Diagnosis: Essential tremor[ICD10: G25.0] Diagnosis: Essential (primary) hypertension[ICD10: I10] Diagnosis: Abnormal weight loss[ICD10: R63.4] Vonnie Sebastianalyssaranjan RAFAT REA [employer] CPT-4: 73342 08/21/2017 ([id number]) OFFICE/OUTPATIENT VISIT EST Diagnosis: Mixed hyperlipidemia[ICD10: E78.2] Diagnosis: Essential (primary) hypertension[ICD10: I10] Diagnosis: 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] Vonnie MATHEWS DO [facility] CPT-4: 86792 11/23/2016 ([id number]) OFFICE/OUTPATIENT VISIT EST Diagnosis: FLU VACCINE[ICD10: Z23] Vonnie GERMAN DO [facility] CPT-4: 81480 06/28/2016 OFFICE/OUTPATIENT VISIT EST Diagnosis: Open bite of right hand, initial encounter[ICD10: S61.451A] Vonnie MATHEWS DO [facility] CPT-4: 20985 05/23/2016 ([id number]) OFFICE/OUTPATIENT VISIT EST Diagnosis: Encounter for general adult medical examination with abnormal findings[ICD10: Z00.01] Diagnosis: Mixed hyperlipidemia[ICD10: E78.2] Diagnosis: Essential tremor[ICD10: G25.0] Diagnosis: 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] Vonnie MATHEWS DO [facility] CPT-4: 89001 05/19/2016 ([id number]) OFFICE/OUTPATIENT VISIT EST Diagnosis: HYPERLIPIDEMIA NEC/NOS[ICD9: 272.4] Diagnosis: CAD[ICD9: 414.00] Diagnosis: TACHYCARDIA[ICD9: 785.0] Diagnosis: HYPERTENSION[ICD9: 401.9] Diagnosis: Routine medical exam[ICD9: V70.0] Vonnie MATHEWS DO [facility] CPT-4: 58030 04/05/2015 ([id number]) OFFICE/OUTPATIENT VISIT EST Diagnosis: HYPERTENSION[ICD9: 401.9] Diagnosis: HYPERLIPIDEMIA NEC/NOS[ICD9: 272.4] Diagnosis: CAD[ICD9: 414.00] Diagnosis: LUMB/LUMBOSAC DISC DEGEN[ICD9: 722.52] Vonnie LAINeri GASPAR Denia MATHEWS DO [facility] CPT-4: 32317 04/01/2015 ([id number]) OFFICE/OUTPATIENT VISIT EST Diagnosis: CHEST PAIN NOS[ICD9: 786.50] Diagnosis: PAIN IN THORACIC SPINE[ICD9: 724.1] Diagnosis: HYPERTENSION[ICD9: 401.9] Diagnosis: GERD[ICD9: 530.81] Vonnie MaciasKim ROMULONDER [facility] CPT-4: 50178 01/13/2014 ([id number]) OFFICE/OUTPATIENT VISIT EST Diagnosis: CAD[ICD9: 414.00] Diagnosis: HYPERLIPIDEMIA NEC/NOS[ICD9: 272.4] Vonniejuan jose Mathews SONUClary ANNA SKim ROMULONDER DO [facility] CPT-4: 57114 07/19/2012 ([id number]) OFFICE/OUTPATIENT VISIT EST Diagnosis: CAD[ICD9: 414.00] Diagnosis: INSOMNIA NOS[ICD9: 780.52] Vonnie Romulojuan miguel Loza OR [facility] CPT-4: 26457 04/03/2012 ([id number]) OFFICE/OUTPATIENT VISIT EST Diagnosis: CHEST PAIN NOS[ICD9: 786.50] Diagnosis: CAD[ICD9: 414.00] Vonnie ASCENCIOLINE JustinKim ROMULONDER DO [facility] CPT-4: 12892 03/22/2012 ([id number]) OFFICE/OUTPATIENT VISIT EST Diagnosis: PROSTATITIS[ICD9: 601.9] Diagnosis: TREMOR NEC[ICD9: 333.1] Vonnie Reid VONNIE JustinKim ROMULOND ER DO [facility] CPT-4: 10188 12/20/2011 OFFICE/OUTPATIENT VISIT EST Diagnosis: TREMOR NEC[ICD9: 333.1] Diagnosis: TACHYCARDIA[ICD9: 785.0] Diagnosis: HYPERTENSION[ICD9: 401.9] Vonnie Romuloalyssaranjan VONNIE JustinKim ORE NDER DO [facility] CPT-4: 63517 10/24/2011 OFFICE/OUTPATIENT VISIT EST Vonnie Romulojuan miguel COLMENARES JustinKim ROMULO NDER DO [facility] CPT- 4: 85172 03/13/2011 ([id number]) OFFICE/OUTPATIENT VISIT EST Vonnie GASPAR SKim ORENDER DO [facility] CPT-4: 70535 02/20/2011 ([id number]) OFFICE/OUTPATIENT VISIT, EST Vonnie Romulonder JOELLE OMAR MATHEWS DO [email or web address] CPT-4: 70919 02/23/2010 ([id number]) OFFICE/OUTPATIENT VISIT, EST Vonnie MATHEWS DO [email or web address] CPT-4: 77948 01/12/2010 Plan of Care Planned Activity Notes [...] him that pens can be purchased on [employer]. ICD-9 : 333.1 ICD-10 : G25.0 09/24/2019 Visit Diagnosis Plan: Hemorrhage of anus and rectum Di scussion: Update colonoscopy ICD-9 : 569.3 ICD-10 : K62.5 05/26/2019 Visit Diagnosis Plan: Noninfective gastroenteritis and colitis, unspecified Discussion: Flagyl [place] diet Update colonoscopy ICD-9 : 558.9 ICD-10 : K52.9 05/26/2019 Appointment: [facility] [phone] [facility] [place] [facility] request faxed 05/23; LM with medical records 05/26/19 Hospital Follow Up 05/26/2019 Care Plan: Referral Order SNOMED-CT : 30 [id number] Pending 05/26/2019 Visit Diagnosis Plan: Other intervertebral disc degene ration, lumbar region Discussion: Increase lyrica to 150mg po q HS Continue stretches from PT [facility] Fwup after that appointment ICD-9 : 722.52 ICD-10 : M51.36 03/17/2019 Appointment: Vonnie [facility]ws [facility] [phone] [facility] [place] FOLLOW UP 03/17/2019 Visit Diagnosis [...] : M51.36 02/18/2019 Appointment: Vonnie Mathews WPtel: [address] [place] [address] FOLLOW UP 02/18/2019 Appointment: Vonnie Mathews WPtel: [address] [place] [address] [place] CANCELED 02/18/2019 Visit Diagnosis Plan: Other [...] J30.89 01/13/2019 Appointment: Akilah Lopez [address] Due for annual wellness ACUTE ILLNESS 01/14/20 19 Appointment: Vonnie Mathews WPtel: [address] [place], [place] [phone] [place] LAB 09/04/2018 Visit Diagnosis Plan: Otorrhea, [...] H61.21 09/03/2018 Appointment: Verna Ramirez [address] ACUTE ILLNESS 09/03/2018 Visit Diagnosis Plan: [...] G25.0 08/26/2018 Appointment: Vonnie Mathews WPtel: [phone] [address] [place] FOLLOW UP 08/26/2018 Visit Diagnosis Plan: [...] ICD-10 : R10.2 05/15/2018 Appointment: Verna Ramirez [address] [place] [address] ACUTE ILLNESS 05/15/2018 Patient Education: Patient Medication Summary Completed 05/15/2018 Care Plan: US EXAM PELVIC COMPLETE scrotal LOINC : 06662-7 Pending 05/15/2018 Visit Diagnosis Plan: Other intervertebral [...] ICD-10 : J01.90 04/25/2018 Appointment: Verna Ramirez [address] [place] [address] MEDICATION REVIEW 04/25/2018 Patient Education: Patient Medication Summary Completed 04/25/2018 Appointment: Vonnie Mathews WPtel: [address] [place] [address] 11/16/2017 Patient Education: Patient Medication Summary Completed [...] : L50.1 11/06/2017 Appointment: Vonnie Mathews WPtel: [address] [place], [place] [phone] FOLLOW UP 11/06/2017 Patient Education: Patient Medication [...] ICD-10 : R63.4 09/03/2017 Appointment: Vonnie Mathewstel: [address] [place], [place] [phone] [place] FOLLOW UP 09/03/2017 Patient Education: Patient Medication Summary Completed 09/03/2017 Visit Diagnosis Plan: Mixed hyperlipidemia Discussion: Lab discussed ICD-9 : 272.4 ICD-10 : E78.2 08/21/2017 Visit Diagnosis Plan: Essential tremor Discussion: Sta ble on Primidone ICD-9 : 333.1 ICD-10 : G25.0 08/21/2017 Visit Diagnosis Plan: Atherosclerotic he art disease of [place] coronary artery without angina pectoris Discussion: Sees Cardiology in 2 days To ER if CP returns before ICD-9 : 414.00 ICD-10 : I25.10 08/21/2017 Visit Diagnosis Plan: Abnormal weight loss Discussion: Start daily protein shake or smoothie ICD-9 : 783.21 ICD-10 : R63.4 08/21/2017 Visit Diagnosis Plan: Essential (primary) hypertension Discussion: Stable ICD-9 : 401.9 ICD-10 : I10 08/21/2017 Appointment: Vonnie Mathewstel: [address] [place], [place] [phone] [place] FOLLOW UP 08/21/2017 Patient Education: Patient Medication Summary Completed 08/21/2017 Appointment: Vonnie Mathewstel: [address] [place], [place] [phone] [place] LAB 07/31/2017 Patient Education: Patient Medication Summary Completed 07/31/2017 Appointment: Vonnie Mathews WPtel: [address] [place], [place] [phone] [place] INJECTION 07/04/2017 Patient Education: Patient Medication Summary Completed 07/04/2017 Appointment: Vonnie Mathewstel: [address] [place], [place] [phone] [place] LAB 02/26/2017 Patient Education: Patient Medication Summary Completed 02/26/2017 Visit Diagnosis Plan: Essential tremor Discussion: Con tinue clonazepam at 1mg q AM and primidone 50mg q HS Follow Up: 3 months ICD-9 : 333.1 ICD-10 : G25.0 02/13/2017 Appointment: Vonnie Mathews WPtel: [address] [place], [place] [phone] 02/08 confirmed~sl FOLLOW UP 02/13/2017 Patient Education: Patient Medication Summary Completed 02/13/2017 Appointment: Vonnie Mathews WPtel: [address] [place], [place] [phone] RESCHEDULED 01/23/2017 Visit Diagnosis Plan: Other intervertebral disc degene ration, lumbar region Discussion: DC oxycodone Tramadol 50mg 1-2 po TID prn pain Follow Up: 2 months ICD-9 : 722.52 ICD-10 : M51.36 11/23/2016 Visit Diagnosis Plan: Essential tremor Discussion: Inc rease clonazepam to 1mg po BID Discussed sinemet ICD-9 : 333.1 ICD-10 : G25.0 11/23/2016 Appointment: Vonnie Mathews WPtel: [address] [place], [place] [phone] 11/22 confirmed~sl MEDICATION REVIEW 11/23/2016 Patient Education: Patient Medication Summary Completed 11/23/2016 Patient Education: [facility] - [employer] - Clonazepam - 18-64 - Dynamic Portal ID Completed 11/23/2016 Appointment: Vonnie Mathews WPtel: [address] [place], [place] [phone] [place] INJECTION 06/28/2016 Patient Education: Patient Medication Summary Completed 06/28/2016 Referral: Fernando Day WPtel: #1 [facility] Shilpa Lopez [id number] per Maribeth, the patient is sched [...] if worsening 05/23/2016 Appointment: Vonnie Mathews WPtel: [address] [place], [place] [phone] ER Follow UP 05/23/2016 Patient Education: Patient Medication Summary Completed 05/23/2016 Appointment: Vonnie Mathews WPtel: [address] [place], [place] [phone] [place] LAB 05/19/2016 Patient Education: Patient Medication Summary Completed 05/19/2016 Visit Plan: Change coreg to 3.125mg BID Trial of low dose clonazepam 0.5mg BID for tremors Fwup with Dr. Ramsey as scheduled Return for fasting lab--CBC, CMP, TSH, free T4, Lipids, PSA, B12 Proceed with Colonoscopy 05/10/2016 Appointment: Vonnie Mathews WPtel: [address] [place], [place] [phone] 05/09 confirmed~sl Annual Well Visit 05/10/2016 Patient Education: Patient Medication Summary Completed 05/10/2016 Care Plan: Referral Order SNOMED-CT : 30 [id number] Pending 05/10/2016 Appointment: Vonnie Mathews WPtel: [address] [place], [place] [phone] [place] Rescheduled for 05/10/16 at 2PM~lb RESCHEDULED 04/26/2016 Referral: Danilo Ramsey WPtel: [facility] Denia Mercado [id number] [place] Referral Initiated 04/29/2015 Appointment: Vonnie Mathews WPtel: [address] [place], [place] [phone] [place] LAB 04/05/2015 Patient Education: Patient Medication Summary Completed 04/05/2015 Visit Plan: Return in AM for fasting lab --CMP, lipids, CBC, TSH, PSA Change hydrocodone to oxycodone 7.5/325mg 1-2 po TID Schedule with cardiology Needs colonoscopy once cardiology evaluation complete Will need to restart chol meds after lab Recheck 1mo on pain meds 04/01/2015 Appointment: Vonnie Mathews WPtel: [address] [place], [place] [phone] 03/31 confirmed -mf PHYSICAL 04/01/2015 Patient Education: Patient Medication Summary Completed 04/01/2015 Appointment: Vonnie Mathews WPtel: [address] [place] [address] Annual Well Visit 09/23/2014 Visit Plan: Continue protonix Pt has fwu p with Card next month Rec chiropracter or PT for ribs/thoracics being out and could be contributing to chest pain 01/13/2014 Appointment: Vonnie Mathews WPtel: [address] [place], [place] [phone] FOLLOW UP 01/13/2014 Patient Education: Patient Medication Summary Completed 01/13/2014 Appointment: Ariella Mcnally WPtel: [address] [place] [address] [place] FOLLOW UP 12/12/2013 Appointment: Malika Cárdenas WPtel: [address] [place], [place] [phone] PHYSICAL 12/12/2013 Appointment: Vonnie Mathews WPtel: [address] [place], [place] [phone] ACUTE ILLNESS 02/20/2013 Appointment: Vonnie Mathews WPtel: [address] [place] [phone] [place] LAB 07/19/2012 Patient Education: Patient Medication Summary Completed 07/19/2012 Appointment: Vonnie Mathews WPtel: [address] [place] [phone] [place] FOLLOW UP 04/03/2012 Patient Education: Patient Medication Summary Completed 04/03/2012 Appointment: Vonnie Mathews WPtel: [address] [place] [address] ACUTE ILLNESS 03/22/2012 Patient Education: Patient Medication Summary Completed 03/22/2012 Appointment: Vonnie Mathews WPtel: [address] [place] [address] FOLLOW UP 12/26/2011 Visit Plan: Add Cipro Continue current m eds 12/20/2011 Appointment: Vonnie Mathews WPtel: [address] [place] [address] ACUTE ILLNESS 12/20/2011 Patient Education: Patient Medication Summary Completed 12/20/2011 Visit Plan: Change neurontin to Cymbalta 30mg for 1wk then 60mg QD Add Propranolol for tremor 10/24/2011 Appointment: Vonnie Mathews WPtel: [address] [place] [address] ACUTE ILLNESS 10/24/2011 Appointment: Vonnie Mathews WPtel: [address] [place] [address] ACUTE ILLNESS 10/24/2011 Patient Education: Patient Medication Summary Completed 10/24/2011 Visit Plan: Continue current meds and fw up with Card as scheduled 03/13/2011 Appointment: Vonnie Mathews WPtel: [address] [place] [address] FOLLOW UP 03/13/2011 Patient Education: Patient Medication Summary Completed 03/13/2011 Visit Plan: Will obtain all records and lab from [facility] Discussed will likely need heart cath which pt states that Card did talk to him about in the hospital 02/20/2011 Appointment: Vonnie Mathews WPtel: [address] [place] [address] ACUTE ILLNESS 02/20/2011 Patient Education: Patient Medication Summary Completed 02/20/2011 Visit Plan: Cont Pepcid and Prilosec See Card for cardiac cath. 02/23/2010 Appointment: Vonnie Mathews WPtel: [phone] [place], [place] [phone] FOLLOW UP 02/23/2010 Patient Education: Patient Medication Summary Completed 02/23/2010 Visit Plan: Increase Pamelor to 75mg qhs Increase Hydrocodone to 10/325mg 1-2 po q6 prn 01/12/2010 Appointment: Vonnie Mathews WPtel: [phone] [facility] ACUTE ILLNESS 01/12/2010 Patient Education: Patient Medication Summary Completed 01/12/2010 Referral: Iván Pardo WPtel: [facility] [address] Referral Initiated Referral: Fernando Day WPtel: [address] [place] [address] [place] Referral Completed Referral: Fernando Day WPtel: #1 [facility]66[facility] Referral Appointment Requested Instructions Comment . Finish [...]
--- OUTSIDE RECORDS SUMMARY | 2020-02-10 08:32 | XMS REPORT | CCD ---
Author Author Nash Mathews D.O. Organization [facility] Address [address] [place] [address] Phone Care Team Providers Care Process Improvement Analyst Name Role Phone Vonnie Mathews D.O., PP Unavailable CCM Unavailable Summary Purpose Interface Exchange Insurance Providers Payer name Policy type / Coverage type Covered libertarian ID Effective Begin Date Effective End Date WPS MEDIC[place] PART B [place] Part B [id number] 2018 Unknown Family History Family History data not found Social History Social History Element Codes Description Effective Dates Marital status Unknown 10/24/[address]: 830525617 Nonsmoker 03/29/2011 Allergies, Adverse Reactions, Alerts Substance [...] R63.4 08/21/2017 Active 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: [...] Fill Instructions clonazepam 1 mg tablet RxNorm: 778975 TAKE 1 TABLET BY MOUTH EV SSUAN AM 09/23/2019 10/22/2019 Active clonazepam 1 mg tablet RxNorm: 175850 TAKE 1 TABLET BY MOUTH EV SUSAN AM 08/21/2019 09/22/2019 Inactive Singulair 10 mg tablet RxNorm: 128801 TABLET(S) 1 TABLET(S) PO QD 1 10/11/2019 Active Flagyl 500 mg tablet RxNorm: 049770 1 Tablet(s) PO TID 05/26/2019 Inactive clonazepam 1 mg tablet RxNorm: 866751 TAKE 1 TABLET BY MOUTH EV SUSAN MORNING 05/23/2019 06/21/2019 Inactive pravastatin 20 mg tablet RxNorm: 559952 1 Tablet(s) PO QD 04/14/2019 10/10/2019 Active Needs updated fasting labs Singulair 10 mg tablet RxNorm: 001951 Tablet(s) 1 TABLET(S) PO QD 0 04/14/2019 07/12/2019 Inactive clonazepam 1 mg tablet RxNorm: 455272 1 Tablet(s) PO QAM 02/21/2019 0 05/23/2019 Inactive Bevespi Aerosphere 9 mcg-4.8 mcg HFA aerosol inhaler RxNorm: 0279175 2 Puff(s) INH BID 02/19/2019 No Stop Date Active ProAir HFA 90 mcg/actuation aerosol inhaler RxNorm: 369139 2 Puff(s) INH Q4H as needed 02/19/2019 09/24/2019 Inactive metoprolol tartrate 25 mg tablet RxNorm: 780988 1/2 Tablet(s) PO BI D 02/18/2019 05/18/2019 Inactive pravastatin 20 mg tablet RxNorm: 156607 1 Tablet(s) PO QD Needs updated fasting labs 01/13/2019 04/14/2019 Inactive Needs updated fa sting labs Singulair 10 mg tablet RxNorm: 542187 Tablet(s) 1 TABLET(S) PO QD 0 01/13/2019 04/12/2019 Inactive Plavix 75 mg tablet RxNorm: 541022 Tablet(s) 1 TABLET(S) PO QD 04/201906/20/2019 Inactive [SAVINGS FOR NON-COVERED SHANDA -- BIN:594042, PCN: ASPROD1, Group: XXXXX, ID# [id number], Questions: . THIS IS NOT INSURANCE.] Singulair 10 mg tablet RxNorm: 202601 1 TABLET(S) PO QD 10/29/2018 Inactive primidone 50 mg tablet RxNorm: 266084 2 TABLET(S) PO BI D TAKE 2 TABLETS BY MOUTH EVERY NIGHT AT BEDTIME 10/07/2018 01/12/2019 Inactive Patient requests 90 days supply pravastatin 20 mg tablet RxNorm: 193109 1 TABLET(S) PO QD 09/23/2018 01/12/2019 Inactive clonazepam 1 mg tablet RxNorm: 783222 1 Tablet(s) PO QAM 09/19/2018 0 12/17/2018 Inactive primidone 50 mg tablet RxNorm: 142777 TABLET(S) TAKE 2 TABLETS BY MOUTH EVERY NIGHT AT BEDTIME 09/18/2018 01/12/2019 Inactive ciprofloxacin 0.2 % ear drops in a dropperette RxNorm: 61809 6 2 Drop(s) left otic (ear) BID 09/03/2018 09/09/2018 Inactive primidone 50 mg tablet RxNorm: 347011 2 Tablet(s) PO BI D TAKE 2 TABLETS BY MOUTH EVERY NIGHT AT BEDTIME 08/26/2018 10/06/2018 Inactive Ambien 5 mg tablet RxNorm: 398811 TAKE 1 TABLET BY MOUTH EVERY NIGHT AT BEDTIME 08/05/2018 09/03/2018 Inactive Singulair 10 mg tablet RxNorm: 438687 1 TABLET(S) PO QD 07/23/2018 Inactive clonazepam 1 mg tablet RxNorm: 967387 TAKE 1 TABLET BY MOUTH EV SUSAN MORNING 07/23/2018 08/21/2018 Inactive Plavix 75 mg tablet RxNorm: 977667 1 TABLET(S) PO QD 07/04/201812/22 Inactive [SAVINGS FOR NON-COVERED DRUGS -- BIN:00 3585, PCN: ASPROD1, Group: XXXXX, ID# [id number], Questions: . THIS IS NOT INSURANCE.] clonazepam 1 mg tablet RxNorm: 697611 TAKE 1 TABLET BY MOUTH EV SUSAN MORNING 06/25/2018 07/23/2018 Inactive clonazepam 1 mg tablet RxNorm: 342590 TAKE 1 TABLET BY MOUTH EV SUSAN MORNING 05/23/2018 06/21/2018 Inactive primidone 50 mg tablet RxNorm: 119677 Tablet(s) TAKE 2 TABLETS BY MOUTH EVERY NIGHT AT BEDTIME 05/16/2018 08/25/2018 Inactive oxycodone-acetaminophen 7.5 mg-325 mg tablet RxNorm: 7194836 1-2 Tablet(s) PO TID as needed 04/25/2018 05/24/2018 Inactive Singulair 10 mg tablet RxNorm: 716546 1 Tablet(s) PO QD 04/25/2018 Inactive Medrol (Jose) 4 mg tablets in a dose pack RxNorm: 311998 Tablet(s) PO take as directed 04/25/2018 09/02/2018 Inactive clonazepam 1 mg tablet RxNorm: 518077 TAKE 1 TABLET BY MOUTH EV SUSAN MORNING 04/24/2018 05/22/2018 Inactive Plavix 75 mg tablet RxNorm: 147932 1 TABLET(S) PO QD 04/04/201807/02 Inactive [SAVINGS FOR NON-COVERED DRUGS -- BIN:00 3589, PCN: ASPROD1, Group: XXXXX, ID# [id number], Questions: . THIS IS NOT INSURANCE.] pravastatin 20 mg tablet RxNorm: 422739 1 Tablet(s) PO QD 03/21/2018 09/16/2018 Inactive ProAir HFA 90 mcg/actuation aerosol inhaler RxNorm: 237661 2 Puff(s) INH Q4H as needed 03/18/2018 03/17/2018 Inactive tamsulosin 0.4 mg capsule RxNorm: 762767 1 CAPSULE(S) PO QD 018 01/12/2019 Inactive clonazepam 1 mg tablet RxNorm: 556197 1 Tablet(s) PO QAM 02/25/2018 0 04/25/2018 Inactive tamsulosin 0.4 mg capsule RxNorm: 388465 1 Capsule(s) PO QD 018 03/13/2018 Inactive tamsulosin 0.4 mg capsule RxNorm: 042149 1 Capsule(s) PO QD 018 02/03/2018 Inactive tamsulosin 0.4 mg capsule RxNorm: 908574 1 Capsule(s) PO QD 018 02/12/2018 Inactive Ambien 5 mg tablet RxNorm: 989114 Tablet(s) TAKE 1 TAB LET BY MOUTH EVERY NIGHT AT BEDTIME 01/24/2018 08/05/2018 Inactive primidone 50 mg tablet RxNorm: 662335 Tablet(s) TAKE 2 TABLETS BY MOUTH EVERY NIGHT AT BEDTIME 01/18/2018 05/16/2018 Inactive cyclobenzaprine 10 mg tablet RxNorm: 659498 1 Tablet(s) PO TID as needed for muscle spasm 01/11/2018 02/09/2018 Inactive [SAVINGS FOR NON -COVERED DRUGS -- BIN:971978, PCN: ASPROD1, Group: XXXXX, ID# [id number], Questions: . THIS IS NOT INSURANCE.] clonazepam 1 mg tablet RxNorm: 045432 1 Tablet(s) PO QAM 12/24/2017 0 02/21/2018 Inactive prednisone 20 mg tablet RxNorm: 310116 1 Tablet(s) PO QD 11/06/2017 0 11/10/2017 Inactive EpiPen 2-Jose 0.3 mg/0.3 mL injection, auto-injector RxNorm: 239479 1 Unit Dose IM as needed 11/06/2017 09/24/2019 Inactive ProAir HFA 90 mcg/actuation aerosol inhaler RxNorm: 659781 2 Puff(s) INH Q4H as needed 10/30/2017 03/17/2018 Inactive primidone 50 mg tablet RxNorm: 041489 TAKE 2 TABLETS BY MOUTH EVERY NIGHT AT BEDTIME 10/15/2017 01/17/2018 Inactive Plavix 75 mg tablet RxNorm: 612914 1 Tablet(s) PO QD 10/01/201703/29 Inactive [SAVINGS FOR NON-COVERED DRUGS -- BIN:00 3585, PCN: ASPROD1, Group: XXXXX, ID# [id number], Questions: . THIS IS NOT INSURANCE.] clonazepam 1 mg tablet RxNorm: 835009 1 Tablet(s) PO QAM 09/19/2017 0 12/16/2017 Inactive primidone 50 mg tablet RxNorm: 326621 2 Tablet(s) PO QHS 08/29/2017 0 01/18/2018 Inactive oxycodone-acetaminophen 7.5 mg-325 mg tablet RxNorm: 9108590 1-2 Tablet(s) PO TID as needed 08/22/2017 09/19/2017 Inactive pravastatin 20 mg tablet RxNorm: 136002 1 Tablet(s) PO QD 08/21/2017 03/21/2018 Inactive carvedilol 3.125 mg tablet RxNorm: 734257 1 Tablet(s) P O BID to replace 6.25mg dose 08/21/2017 09/02/2017 Inactive primidone 50 mg tablet RxNorm: 521227 TAKE 2 TABLETS BY MOUTH EVERY NIGHT AT BEDTIME 06/18/2017 08/28/2017 Inactive clonazepam 1 mg tablet RxNorm: 701712 1 Tablet(s) PO QAM 06/04/2017 1 11/02/2016 Inactive Plavix 75 mg tablet RxNorm: 312411 1 Tablet(s) PO QD 04/10/201710/01 Inactive [SAVINGS FOR NON-COVERED DRUGS -- BIN:00 3585, PCN: ASPROD1, Group: XXXXX, ID# [id number], Questions: . THIS IS NOT INSURANCE.] pravastatin 20 mg tablet RxNorm: 479718 1 Tablet(s) PO QD 02/26/2017 08/24/2017 Inactive carvedilol 3.125 mg tablet RxNorm: 715354 1 Tablet(s) P O BID to replace 6.25mg dose 02/26/2017 08/21/2017 Inactive Ultram 50 mg tablet RxNorm: 032214 TAKE 1 TO 2 TABLETS BY MOUTH THREE TIMES DAILY NEEDED FOR PAIN 02/26/2017 03/07/2017 Inactive pravastatin 20 mg tablet RxNorm: 206944 1 Tablet(s) PO QD 02/26/2017 08/21/2017 Inactive carvedilol 3.125 mg tablet RxNorm: 964668 1 Tablet(s) P O BID to replace 6.25mg dose 02/26/2017 08/20/2017 Inactive clonazepam 0.5 mg tablet RxNorm: 110208 1 Tablet(s) PO QAM 02/14/20 17 02/13/2017 Inactive primidone 50 mg tablet RxNorm: 465922 1 Tablet(s) PO QHS 02/13/2017 0 05/01/2017 Inactive clonazepam 1 mg tablet RxNorm: 035075 1 Tablet(s) PO QAM 02/13/2017 0 05/13/2017 Inactive primidone 50 mg tablet RxNorm: 082255 1/2 Tablet(s) PO QD for 7 days then increase to 1 tablet at bedtime 01/09/2017 02/12/2017 Inactive pravastatin 20 mg tablet RxNorm: 666352 Tablet(s) 1 TABLET(S) PO QD 11/29/2016 02/25/2017 Inactive clonazepam 1 mg tablet RxNorm: 566062 1 Tablet(s) PO BID replac es 0.5mg dose 11/23/2016 01/08/2017 Inactive pravastatin 20 mg tablet RxNorm: 603942 1 TABLET(S) PO QD 11/17/2016 11/28/2016 Inactive Ambien 5 mg tablet RxNorm: 080361 TAKE 1 TABLET BY MOUTH EVERY NIGHT AT BEDTIME 11/17/2016 12/14/2016 Inactive clonazepam 0.5 mg tablet RxNorm: 250321 TAKE 1 TABLET BY MOUTH TWICE DAILY 11/17/2016 11/22/2016 Inactive Plavix 75 mg tablet RxNorm: 271452 1 Tablet(s) PO QD 11/06/201604/09 Inactive [SAVINGS FOR NON-COVERED DRUGS -- BIN:00 3585, PCN: ASPROD1, Group: XXXXX, ID# [id number], Questions: . THIS IS NOT INSURANCE.] Plavix 75 mg tablet RxNorm: 752530 1 Tablet(s) PO QD 08/28/201611/05 Inactive [SAVINGS FOR NON-COVERED DRUGS -- BIN: 3585, PCN: ASPROD1, Group: XXXXX, ID# [id number], Questions: . THIS IS NOT INSURANCE.] Lidoderm 5 % topical patch RxNorm: 3365673 Application T OP 2 patches for 12hrs then off for 12hrs 08/28/2016 08/27/2016 Inactive clonazepam 0.5 mg tablet RxNorm: 452088 1 Tablet(s) PO BID 08/07/20 16 11/22/2016 Inactive pravastatin 20 mg tablet RxNorm: 216785 1 Tablet(s) PO QD 08/07/2016 11/04/2016 Inactive cyclobenzaprine 10 mg tablet RxNorm: 029816 1 Tablet(s) PO TID as needed for muscle spasm 08/07/2016 09/05/2016 Inactive [SAVINGS FOR NON -COVERED DRUGS -- BIN:706238, PCN: ASPROD1, Group: XXXXX, ID# [id number], Questions: . THIS IS NOT INSURANCE.] Plavix 75 mg tablet RxNorm: 464776 1 Tablet(s) PO QD 08/07/201608/27 Inactive [SAVINGS FOR NON-COVERED DRUGS -- BIN:00 3585, PCN: ASPROD1, Group: XXXXX, ID# [id number], Questions: . THIS IS NOT INSURANCE.] carvedilol 3.125 mg tablet RxNorm: 368704 1 Tablet(s) P O BID to replace 6.25mg dose 08/07/2016 02/02/2017 Inactive clonazepam 0.5 mg tablet RxNorm: 216383 1 Tablet(s) PO BID 07/04/2008/07/2016 Inactive Plavix 75 mg tablet RxNorm: 262193 1 TABLET(S) PO QD 06/20/201608/06 Inactive [SAVINGS FOR NON-COVERED DRUGS -- BIN:00 3585, PCN: ASPROD1, Group: XXXXX, ID# [id number], Questions: . THIS IS NOT INSURANCE.] clonazepam 0.5 mg tablet RxNorm: 252002 1 Tablet(s) PO BID 06/09/20 16 07/03/2016 Inactive pravastatin 20 mg tablet RxNorm: 455574 1 Tablet(s) PO QD 05/23/2016 08/06/2016 Inactive pravastatin 20 mg tablet RxNorm: 519221 1 Tablet(s) PO QD 05/23/2016 05/22/2016 Inactive carvedilol 3.125 mg tablet RxNorm: 151026 1 Tablet(s) P O BID to replace 6.25mg dose 05/10/2016 08/06/2016 Inactive carvedilol 3.125 mg tablet RxNorm: 023936 1 Tablet(s) P O BID to replace 6.25mg dose 05/10/2016 05/09/2016 Inactive clonazepam 0.5 mg tablet RxNorm: 618101 1 Tablet(s) PO BID 05/10/20 16 06/08/2016 Inactive carvedilol 6.25 mg tablet RxNorm: 385355 1 Tablet(s) PO QD 05/10/20 16 05/10/2016 Inactive simvastatin 40 mg tablet RxNorm: 819394 1 TABLET(S) PO QD 04/10/2016 05/09/2016 Inactive Medrol (Jose) 4 mg tablets in a dose pack RxNorm: 834683 Tablet(s) PO As Directed 01/13/2016 05/09/2016 Inactive cyclobenzaprine 10 mg tablet RxNorm: 001502 1 TABLET(S) PO TID NEEDED FOR SPASM 01/11/2016 03/10/2016 Inactive [SAVINGS FOR NON -COVERED DRUGS -- BIN:241783, PCN: ASPROD1, Group: XXXXX, ID# [id number], Questions: . THIS IS NOT INSURANCE.] Plavix 75 mg tablet RxNorm: 330813 1 Tablet(s) PO QD 12/30/201506/19 Inactive [SAVINGS FOR NON-COVERED DRUGS -- BIN: 3585, PCN: ASPROD1, Group: XXXXX, ID# [id number], Questions: . THIS IS NOT INSURANCE.] Ambien 5 mg tablet RxNorm: 979944 TAKE 1 TABLET BY MOUTH EVERY DAY AT BEDTIME 11/15/2015 11/17/2016 Inactive simvastatin 40 mg tablet RxNorm: 569228 1 Tablet(s) PO QD 10/11/2015 01/12/2019 Inactive simvastatin 40 mg tablet RxNorm: 677045 1 Tablet(s) PO QD 10/08/2015 10/10/2015 Inactive Ambien 5 mg tablet RxNorm: 798719 TAKE 1 TABLET BY MOUTH EVERY NIGHT AT BEDTIME 07/27/2015 11/15/2015 Inactive Plavix 75 mg tablet RxNorm: 006464 1 Tablet(s) PO QD 06/28/201512/29 Inactive [SAVINGS FOR NON-COVERED DRUGS -- BIN: 3585, PCN: ASPROD1, Group: XXXXX, ID# [id number], Questions: . THIS IS NOT INSURANCE.] Coreg 6.25 mg tablet RxNorm: 709845 1 TABLET(S) PO BID 04/19/2015 Inactive [SAVINGS FOR NON-COVERED DRUGS -- BIN:00 3585, PCN: ASPROD1, Group: XXXXX, ID# [id number], Questions: . THIS IS NOT INSURANCE.] simvastatin 40 mg tablet RxNorm: 291239 1 Tablet(s) PO QD 04/05/2015 04/04/2015 Inactive simvastatin 40 mg tablet RxNorm: 660944 1 Tablet(s) PO QD 04/05/2015 10/11/2015 Inactive Plavix 75 mg tablet RxNorm: 344406 1 TABLET(S) PO QD 03/22/201504/20 Inactive [SAVINGS FOR NON-COVERED DRUGS -- BIN:00 3585, PCN: ASPROD1, Group: XXXXX, ID# [id number], Questions: . THIS IS NOT INSURANCE.] Plavix 75 mg tablet RxNorm: 772336 1 Tablet(s) PO QD 03/22/201506/28 Inactive [SAVINGS FOR NON-COVERED DRUGS -- BIN:00 3585, PCN: ASPROD1, Group: XXXXX, ID# [id number], Questions: . THIS IS NOT INSURANCE.] Ambien 5 mg tablet RxNorm: 551383 1 Tablet(s) PO QHS 12/17/201407/28 Inactive [SAVINGS FOR NON-COVERED DRUGS -- BIN:00 3585, PCN: ASPROD1, Group: XXXXX, ID# XXXXXXX, Questions: . THIS IS NOT INSURANCE.] Coreg 6.25 mg tablet RxNorm: 354507 1 Tablet(s) PO BID 12/17/2014 Inactive [SAVINGS FOR NON-COVERED DRUGS -- BIN:00 3585, PCN: ASPROD1, Group: XXXXX, ID# XXXXXXX, Questions: . THIS IS NOT INSURANCE.] Plavix 75 mg tablet RxNorm: 502833 1 Tablet(s) PO QD 12/17/201403/16 Inactive [SAVINGS FOR NON-COVERED DRUGS -- BIN:00 3585, PCN: ASPROD1, Group: XXXXX, ID# XXXXXXX, Questions: . THIS IS NOT INSURANCE.] cyclobenzaprine 10 mg tablet RxNorm: 229199 1 Tablet(s) PO TID as needed for spasm 12/17/2014 03/16/2015 Inactive [SAVINGS FOR NON -COVERED DRUGS -- BIN:678990, PCN: ASPROD1, Group: XXXXX, ID# [id number], Questions: . THIS IS NOT INSURANCE.] Coreg 6.25 mg tablet RxNorm: 666070 1 Tablet(s) PO BID 10/21/201409/2014 Inactive [SAVINGS FOR NON-COVERED DRUGS -- BIN:00 3585, PCN: ASPROD1, Group: XXXXX, ID# XXXXXXX, Questions: . THIS IS NOT INSURANCE.] Plavix 75 mg tablet RxNorm: 025259 1 Tablet(s) PO QD 10/21/201412/16 Inactive [SAVINGS FOR NON-COVERED DRUGS -- BIN:00 3585, PCN: ASPROD1, Group: XXXXX, ID# [id number], Questions: . THIS IS NOT INSURANCE.] Plavix 75 mg tablet RxNorm: 611667 1 Tablet(s) PO QD Ne eds routine check up--last seen March 2012 09/21/2014 10/20/2014 Inactive [SAVINGS FOR UNINSURED PATIENTS -- BIN:423739, PCN: ASPROD1, Group: AME08, ID# [id number], Process claim through [employer], for questions: . THIS IS NOT INSURANCE.] Ambien 5 mg tablet RxNorm: 622456 1 Tablet(s) PO [facility] 09/21/201412/16 Inactive [SAVINGS FOR UNINSURED PATIENTS -- BIN:0 75175, PCN: ASPROD1, Group: AME08, ID# [id number], Process claim through [employer], for questions: . THIS IS NOT INSURANCE.] Coreg 6.25 mg tablet RxNorm: 050668 1 Tablet(s) PO BID 09/21/201411/2014 Inactive [SAVINGS FOR UNINSURED PATIENTS -- BIN:0 48994, PCN: ASPROD1, Group: AME08, ID# [id number], Process claim through [employer], for questions: . THIS IS NOT INSURANCE.] Plavix 75 mg tablet RxNorm: 890544 1 Tablet(s) PO QD Ne eds routine check up--last seen March 2012 08/04/2014 09/02/2014 Inactive [SAVINGS FOR UNINSURED PATIENTS -- BIN:950041, PCN: ASPROD1, Group: AME08, ID# [id number], Process claim through [employer], for questions: . THIS IS NOT INSURANCE.] Plavix 75 mg tablet RxNorm: 119046 1 Tablet(s) PO QD Ne eds routine check up--last seen March 2012 08/03/2014 08/03/2014 Inactive Protonix 40 mg tablet,delayed release RxNorm: 261053 1 Tablet(s ) PO QD 06/08/2014 02/17/2019 Inactive [SAVINGS FOR UNINSUR ED PATIENTS -- BIN:328071, PCN: ASPROD1, Group: AME08, ID# [id number], Process claim through [employer], for questions: . THIS IS NOT INSURANCE.] hydrocodone 10 mg-acetaminophen 325 mg tablet RxNorm: 319589 1 Tablet(s) PO BID as needed for pain 02/18/2014 03/31/2015 Inactive Coreg 6.25 mg tablet RxNorm: 111285 1 Tablet(s) PO BID 02/02/2014 Inactive Protonix 40 mg granules delayed-release packet RxNorm: 610410 1 Tablet(s) PO QD 01/13/2014 06/08/2014 Inactive Plavix 75 mg tablet RxNorm: 323526 1 Tablet(s) PO QD Ne eds routine check up--last seen March 2012 01/13/2014 08/02/2014 Inactive Plavix 75 mg tablet RxNorm: 970738 1 Tablet(s) PO QD Ne eds routine check up--last seen March 2012 12/09/2013 01/07/2014 Inactive Coreg 6.25 mg tablet RxNorm: 493042 1 Tablet(s) PO BID 12/09/2013 Inactive Cymbalta 60 mg capsule,delayed release RxNorm: 225694 1 Capsule (s) PO QD 10/31/2013 01/12/2014 Inactive Coreg 6.25 mg tablet RxNorm: 203680 1 Tablet(s) PO BID 10/31/2013 Inactive Plavix 75 mg tablet RxNorm: 019320 1 Tablet(s) PO QD Ne eds routine check up--last seen March 2012 10/31/2013 11/29/2013 Inactive Coreg 6.25 mg tablet RxNorm: 808501 1 Tablet(s) PO BID 10/31/2013 Inactive atorvastatin 40 mg tablet RxNorm: 210124 1 Tablet(s) PO QD 10/31/19 14 03/31/2015 Inactive Plavix 75 mg tablet RxNorm: 127093 1 Tablet(s) PO QD Ne eds routine check up--last seen March 2012 09/23/2013 10/30/2013 Inactive cyclobenzaprine 10 mg tablet RxNorm: 378426 1 Tablet(s) PO TID as needed for spasm 09/23/2013 No Stop Date Active cyclobenzaprine 10 mg tablet RxNorm: 610447 1 Tablet(s) PO TID as needed for spasm 07/04/2013 09/22/2013 Inactive atorvastatin 40 mg tablet RxNorm: 454952 1 Tablet(s) PO QD 06/23/20 13 10/30/2013 Inactive atorvastatin 40 mg tablet RxNorm: 090045 1 Tablet(s) PO QD 04/22/20 13 06/22/2013 Inactive Nucynta 50 mg tablet RxNorm: 420718 1-2 Tablet(s) PO Q6H as nee ded for pain 01/01/2013 01/12/2014 Inactive Ambien 5 mg tablet RxNorm: 934169 1 Tablet(s) PO QHS 10/16/201201/13 Inactive Plavix 75 mg tablet RxNorm: 920315 1 Tablet(s) PO QD 09/19/201209/13 Inactive Protonix 40 mg tablet,delayed release RxNorm: 250705 1 Tablet(s ) PO QD 09/19/2012 09/18/2012 Inactive simvastatin 40 mg tablet RxNorm: 562783 1 Tablet(s) PO QD 09/19/2012 02/23/2013 Inactive Protonix 40 mg tablet,delayed release RxNorm: 047673 1 Tablet(s ) PO QD 09/19/2012 09/13/2013 Inactive Ultram 50 mg tablet RxNorm: 931866 1-2 Tablet(s) PO QID as need ed for pain 09/19/2012 02/26/2017 Inactive propranolol 80 mg tablet RxNorm: 090929 1 Tablet(s) PO QHS 09/19/19 13 09/18/2012 Inactive Cymbalta 60 mg capsule,delayed release RxNorm: 149813 1 Capsule (s) PO QD 09/19/2012 09/18/2012 Inactive Cymbalta 60 mg capsule,delayed release RxNorm: 219296 1 Capsule (s) PO QD 09/19/2012 03/17/2013 Inactive propranolol 80 mg tablet RxNorm: 025640 1 Tablet(s) PO QHS 09/19/19 13 02/23/2013 Inactive hydrocodone-acetaminophen 10 mg-325 mg tablet RxNorm: 417168 2 1-2 Tablet(s) PO QID 07/25/2012 02/23/2013 Inactive Ambien 10 mg tablet RxNorm: 425466 1 Tablet(s) PO QHS as needed for sleep 07/10/2012 01/27/2013 Inactive propranolol 80 mg tablet RxNorm: 563946 1 Tablet(s) PO QHS 05/13/20 12 09/18/2012 Inactive hydrocodone-acetaminophen 10 mg-325 mg tablet RxNorm: 603849 2 1-2 Tablet(s) PO QID 05/02/2012 No Stop Date Active Restoril 15 mg Cap RxNorm: 943262 1-2 Capsule(s) PO QHS 05/02/2012 Inactive propranolol 80 mg tablet RxNorm: 802544 1 Tablet(s) PO QHS 05/02/20 12 05/12/2012 Inactive Chantix Starting Month Box 0.5 mg (11)-1 mg (42) Tabs in a Dose Pack RxNorm: 029497 Tablet(s) PO As Directed 04/01/2012 01/27/2013 Inactive simvastatin 40 mg tablet RxNorm: 436755 1 Tablet(s) PO QD 03/28/2012 09/18/2012 Inactive simvastatin 40 mg Tab RxNorm: 580970 1 Tablet(s) PO QD 03/22/201207/2012 Inactive Effient 10 mg Tab RxNorm: 229595 1 Tablet(s) PO QD 03/22/2012 012 Inactive Prilosec 40 mg Capsule, delayed release RxNorm: 231322 1 Capsul e(s) PO QD 03/22/2012 09/18/2012 Inactive Prilosec 40 mg Capsule, delayed release RxNorm: 504729 1 Capsul e(s) PO QD 03/19/2012 03/21/2012 Inactive Cymbalta 60 mg capsule,delayed release RxNorm: 923059 1 Capsule (s) PO QD 03/04/2012 08/30/2012 Inactive hydrocodone-acetaminophen 10 mg-325 mg Tab RxNorm: 2100383 1-2 T ablet(s) PO QID 01/23/2012 No Stop Date Active Cymbalta 60 mg Capsule, delayed release RxNorm: 671413 1 Capsul e(s) PO QD 01/23/2012 03/03/2012 Inactive Cipro 500 mg Tab RxNorm: 699591 1 Tablet(s) PO BID 12/20/2011 012 Inactive Cymbalta 60 mg Capsule, delayed release RxNorm: 348000 1 Capsul e(s) PO QD 12/13/2011 01/22/2012 Inactive nortriptyline 75 mg Cap RxNorm: 938061 1 Capsule(s) PO QHS 11/29/1904/02/2012 Inactive Cymbalta 60 mg Cap RxNorm: 272771 1 Capsule(s) PO QD 10/24/201112/11 Inactive propranolol 80 mg Tab RxNorm: 890686 1 Tablet(s) PO QHS 10/24/2011 Inactive hydrocodone-acetaminophen 10 mg-325 mg Tab RxNorm: 5914536 1-2 T ablet(s) PO QID 09/29/2011 No Stop Date Active hydrocodone-acetaminophen 10 mg-325 mg Tab RxNorm: 5308042 1-2 T ablet(s) PO QID 07/25/2011 No Stop Date Active hydrocodone-acetaminophen 10 mg-325 mg Tab RxNorm: 0060256 1-2 T ablet(s) PO QID 02/14/2011 No Stop Date Active Prilosec 40 mg Cap RxNorm: 876947 1 Capsule(s) PO 01/03/2011 04/28/20 19 Inactive nortriptyline 75 mg Cap RxNorm: 146839 1 Capsule(s) PO QHS 01/04/20 11 07/01/2011 Inactive Neurontin 600 mg Tab RxNorm: 683395 1 Tablet(s) PO QHS 12/08/201011/2011 Inactive hydrocodone-acetaminophen 5 mg-500 mg Tab RxNorm: 600750 2 Tablet(s) PO Q4-6H prn 10/20/2010 01/08/2011 Inactive Diltzac ER 240 mg Cap RxNorm: 869581 1 Capsule(s) PO QD 07/14/2010 Inactive Nortriptyline 75 mg Cap RxNorm: 100414 1 Capsule(s) PO QHS 05/09/20 10 01/12/2019 Inactive Neurontin 600 mg Tab RxNorm: 130560 1 Tablet(s) PO QD 03/17/201012/17 Inactive Nortriptyline 75 mg Cap RxNorm: 356332 1 Capsule(s) PO 01/12/2010 Inactive Nortriptyline 50 mg Cap RxNorm: 228125 1 Capsule(s) PO QHS 01/13/20 10 01/11/2010 Inactive Diltzac ER 240 mg Cap RxNorm: 827417 1 Capsule(s) PO QD 12/06/2009 Inactive aspirin 81 mg Tab RxNorm: 717644 1 Tablet(s) PO QD No Start Date Active Vitamin D3 2,000 unit tablet RxNorm: 360201 1 Tablet(s) PO QD No Star t Date Active Lyrica 75 mg capsule RxNorm: 886276 1 Capsule(s) PO QHS No Start Date Active ywznkwyga-ghishciqk-amwloz complex no.233 oral RxNorm: oral No Start Date Active primidone 50 mg tablet RxNorm: 798206 2 Tablet(s) PO BID No Start Date Active Prilosec 40 mg Capsule, delayed release RxNorm: 852136 1 Capsul e(s) PO QD No Start Date 03/18/2012 Inactive Prilosec 20 mg Cap RxNorm: 422742 1 Capsule(s) PO QHS No Start Date 0 01/02/2011 Inactive primidone 50 mg tablet RxNorm: 033834 1/2 Tablet(s) PO QHS for 1week then go full tab if needed No Start Date 05/01/2017 Inactive ProAir HFA 90 mcg/actuation aerosol inhaler RxNorm: 240881 2 Puff(s) INH Q4H as needed No Start Date 10/29/2017 Inactive clonazepam 0.5 mg tablet RxNorm: 026767 1/2 Tablet(s) PO BID No Sta rt Date 02/12/2017 Inactive Pepcid AC 10 mg Tab RxNorm: 473256 1 Tablet(s) PO QAM No Start Date 0 02/19/2011 Inactive Coreg Oral RxNorm: Oral No Start Date 01/12/2014 Inactive primidone 50 mg tablet RxNorm: 730250 1/2 Tablet(s) PO QD for 7 days then increase to 1 tablet at bedtime No Start Date 01/08/2017 Inactive Medrol (Jose) 4 mg tablets in a dose pack RxNorm: 619521 Tablet(s) PO As Directed No Start Date 01/12/2016 Inactive Plavix 75 mg tablet RxNorm: 735287 1 Tablet(s) PO QD No Start Date Inactive cyclobenzaprine 10 mg tablet RxNorm: 380977 1 Tablet(s) PO TID as needed for spasm No Start Date 07/03/2013 Inactive Bevespi Aerosphere 9 mcg-4.8 mcg HFA aerosol inhaler RxNorm: 2847364 2 Puff(s) INH BID No Start Date 02/18/2019 Inactive tramadol 50 mg tablet RxNorm: 584596 1-2 Tablet(s) PO TID as ne eded for pain No Start Date 01/12/2019 Inactive clonazepam 1 mg tablet RxNorm: 290223 1 Tablet(s) PO QAM No Start D ate 09/18/2018 Inactive hydrocodone-acetaminophen 5 mg-500 mg Tab RxNorm: 455830 2 Tablet(s) PO Q4-6H prn No Start Date 10/19/2010 Inactive lisinopril 20 mg Tab RxNorm: 736193 1/2 Tablet(s) PO QD No Start Da te 03/12/2011 Inactive Protonix 40 mg tablet,delayed release RxNorm: 585571 1 Tablet(s ) PO QD No Start Date 06/07/2014 Inactive Lipitor Oral RxNorm: Oral No Start Date 01/12/2014 Inactive primidone 50 mg tablet RxNorm: 371629 2 Tablet(s) PO QAM and 1 tablet at HS No Start Date 02/17/2019 Inactive hydrocodone-acetaminophen 10 mg-325 mg Tab RxNorm: 3309977 1-2 T ablet(s) PO QID No Start Date 02/13/2011 Inactive Ultram 50 mg tablet RxNorm: 269345 1-2 Tablet(s) PO QID as need ed for pain No Start Date 09/18/2012 Inactive Effient 10 mg Tab RxNorm: 829887 1 Tablet(s) PO QD No Start Date 01/2012 Inactive Bevespi Aerosphere 9 mcg-4.8 mcg HFA aerosol inhaler RxNorm: 6605812 2 Puff(s) INH BID No Start Date 10/29/2017 Inactive Neurontin Oral RxNorm: Oral No Start Date 01/12/2010 Inactive primidone 50 mg tablet RxNorm: 906383 1 Tablet(s) PO QD No Start Da te 01/12/2019 Inactive Chantix Starting Month Box 0.5 mg (11)-1 mg (42) Tabs in a Dose Pack RxNorm: 994643 Tablet(s) PO No Start Date 03/31/2012 Inactive atenolol 25 mg Tab RxNorm: 292381 1 Tablet(s) PO QD No Start Date 02/2012 Inactive Neurontin 600 mg Tab RxNorm: 561364 1 Tablet(s) PO QD No Start Date 0 03/16/2010 Inactive Nucynta 50 mg tablet RxNorm: 660901 1-2 Tablet(s) PO Q6H as nee ded for pain No Start Date 12/31/2012 Inactive simvastatin 40 mg Tab RxNorm: 150465 1 Tablet(s) PO QD No Start Date 03/21/2012 Inactive Medication Administered No Medication Administered data Immunizations Vaccine Codes Date Status Influenza CVX: 135 07/04/2017 Complete Results Observation Observation Code Item Item Code Result Date [facility] Location COMPLETE BLOOD COUNT [id number] WBC 4.9 10e9/L 09/04/20 18 Unknown COMPLETE BLOOD COUNT [id number] RBC 4.42 10e12/L 2017 Unknown COMPLETE BLOOD COUNT 6284923 HEMOGLOBIN 13.4 g/dL 09/04/20 18 Unknown COMPLETE BLOOD COUNT 3432892 HEMATOCRIT 40.5 % 09/04/20 18 Unknown COMPLETE BLOOD COUNT [id number] MCV 91.6 fL 8 Unknown COMPLETE BLOOD COUNT 1725871 MCH 30.3 pg 8 Unknown COMPLETE BLOOD COUNT 5199962 MCHC 33.1 g/dL 8 Unknown COMPLETE BLOOD COUNT 7050077 PLATELET COUNT 224 10e9/L Unknown COMPLETE BLOOD COUNT 1544409 Mean Plt Volume 9.9 fL Unknown COMPLETE BLOOD COUNT 8603785 Neut Auto 60.8 % 8 Unknown COMPLETE BLOOD COUNT 1949357 Lymph Auto 26.8 % 09/04/20 18 Unknown COMPLETE BLOOD COUNT 2675218 [place] Auto 10.4 % 8 Unknown COMPLETE BLOOD COUNT 6960367 RDW 12.8 % 8 Unknown COMPLETE BLOOD COUNT 2491316 Eos Auto 1.6 % 8 Unknown COMPLETE BLOOD COUNT 3896798 Baso Auto 0.4 % 8 Unknown COMPLETE BLOOD COUNT 9946682 Neutrophil Abs 2.98 10e9/L Unknown COMPLETE BLOOD COUNT 3565507 Lymphocyte Abs 1.31 10e9/L Unknown COMPLETE BLOOD COUNT [id number] Monocyte Abs 0.51 10e9/L 08/17 Unknown COMPLETE BLOOD COUNT 4174390 Eosinophil Abs 0.08 10e9/L Unknown COMPLETE BLOOD COUNT 4350508 RDW-SD 41.6 fL 8 Unknown COMPLETE BLOOD COUNT [id number] Basophil Abs 0.02 10e9/L 08/17 Unknown COMPREHENSIVE METABOLIC 71644 AST 16 U/L 2017 Unknown COMPREHENSIVE METABOLIC 00105 ALT 8 U/L 2017 Unknown COMPREHENSIVE METABOLIC 74123 BUN 12 mg/dL 2017 Unknown COMPREHENSIVE METABOLIC 84039 ALBUMIN 4.4 g/dL 2017 Unknown COMPREHENSIVE METABOLIC 63133 CHLORIDE 107 mmol/L 09/04 Unknown COMPREHENSIVE METABOLIC 24022 Bili Total 1.0 mg/dL 09/04 Unknown COMPREHENSIVE METABOLIC 21239 ALK PHOS 58 U/L 2017 Unknown COMPREHENSIVE METABOLIC 63530 SODIUM 142 mmol/L 09/04 Unknown COMPREHENSIVE METABOLIC 30058 CREATININE 0.97 mg/dL 08/17 Unknown COMPREHENSIVE METABOLIC 97520 CALCIUM 9.2 mg/dL 2017 Unknown COMPREHENSIVE METABOLIC 00043 POTASSIUM 4.6 mmol/L 09/04 Unknown COMPREHENSIVE METABOLIC 35054 Total Protein 6.5 g/dL Unknown COMPREHENSIVE METABOLIC 52219 Glucose 96 mg/dL 2017 Unknown COMPREHENSIVE METABOLIC 17717 Bicarbonate 29 mmol/L 08/17 Unknown COMPREHENSIVE METABOLIC 52153 AGAP 6 mmol/L 2017 Unknown LIPID GROUP 71487 Cholesterol 182 mg/dL 09/04/2018 Unkno wn LIPID GROUP 29269 Triglyceride 84 mg/dL 09/04/2018 Unkn own LIPID GROUP 74320 HDL CHOLESTEROL 76 mg/dL 09/04/2018 U nknown LIPID GROUP 44024 Chol/HDL Ratio 2.39 ratio 09/04/2018 U nknown LIPID GROUP 38555 NON-HDL Chol 106 mg/dL 09/04/2018 Unkn own LIPID GROUP 87743 LDL Cholesterol 89 mg/dL 09/04/2018 U nknown GFR CALC 8761200 GFR Non Afr Amr >60 mL/min 09/04/2018 Un known GFR CALC 5898623 GFR Afr Amr >60 mL/min 09/04/2018 Unknow n THYROID STIMULATING HORMONE 47823 TSH 0.713 uIU/mL 09/04/2018 Unknown PSA EQUIMOLAR BARBIE 15344 PSA Total 0.66 ng/mL 8 Unknown A FOOD C P [id number] [place] Cl Class 0 11/17/2017 Unknown A FOOD C P [id number] [place] Ct <0.35 kU/L 11/17/2017 Unknow n A FOOD C P [id number] [place] Cl Class 0 11/17/2017 Unkn own A FOOD C P 1655162 [place] Ct <0.35 kU/L 11/17/2017 Unk nown A FOOD C P 2096642 [place] White Cl Class 0 11/17/2017 Unkno wn A FOOD C P 1396125 Egg White Ct <0.35 kU/L 11/17/2017 Unkn own A FOOD C P 1195043 Egg Yolk Cl Class 0 11/17/2017 Unknow n A FOOD C P 8497417 Egg Yolk Ct <0.35 kU/L 11/17/2017 Unkno wn A FOOD C P 1641726 Cow Milk Cl Class 0 11/17/2017 Unknow n A FOOD C P 2029853 Cow Milk Ct <0.35 kU/L 11/17/2017 Unkno wn A FOOD C P 3228884 Peanut Cl Class 0 11/17/2017 Unknown A FOOD C P 5637242 Peanut Ct <0.35 kU/L 11/17/2017 Unknown A FOOD C P 5594120 Shrimp Cl Class 0 11/17/2017 Unknown A FOOD C P 1747997 Shrimp Ct <0.35 kU/L 11/17/2017 Unknown A FOOD C P 8203370 [place] Cl Class 0 11/17/2017 Unknown A FOOD C P 7258397 [place] Ct <0.35 kU/L 11/17/2017 Unknow n A FOOD C P 1132395 Wheat Cl Class 0 11/17/2017 Unknown A FOOD C P 9625382 Wheat Ct <0.35 kU/L 11/17/2017 Unknown A FOOD C P 1269559 Potato Cl Class 0 11/17/2017 Unknown A FOOD C P 4857576 Potato Ct <0.35 kU/L 11/17/2017 Unknown A FOOD C P 4374423 Beef Cl Class 2 11/17/2017 Unknown A FOOD C P 3028466 Beef Ct 0.88 kU/L 11/17/2017 Unknown A FOOD C P 5612362 [place] Cl Class 0 11/17/2017 Unknown A FOOD C P [id number] [place] Ct <0.35 kU/L 11/17/2017 Unknown A FOOD C P 0772845 Pork Cl Class 0 11/17/2017 Unknown A FOOD C P 6597169 Pork Ct <0.35 kU/L 11/17/2017 Unknown A FOOD C P 8046055 [place] Cl Class 0 11/17/2017 Unknown A FOOD C P [id number] [place] Ct <0.35 kU/L 11/17/2017 Unknown A FOOD C P 1787177 [place] Cl Class 0 11/17/2017 Unkn own A FOOD C P 9117451 [place] Ct <0.35 kU/L 11/17/2017 Unk nown A FOOD C P 5475133 [place] Cl Class 0 11/17/2017 Unknown A FOOD C P 3311786 [place] Ct <0.35 kU/L 11/17/2017 Unknown A FOOD C P 0612887 Tuna Cl Class 0 11/17/2017 Unknown A FOOD C P 0957368 Tuna Ct <0.35 kU/L 11/17/2017 Unknown A FOOD C P 3170077 [place] CL Class 0 11/17/2017 Unknown A FOOD C P 3226401 [place] <0.35 kU/L 11/17/2017 Unknown A FOOD C P 5072470 Case[place] Cl Class 0 11/17/2017 Unknown A FOOD C P 2033890 Casein Ct <0.35 kU/L 11/17/2017 Unknown A FOOD C P 7098874 Oat Cl Class 0 11/17/2017 Unknown A FOOD C P 2764736 Oat Ct <0.35 kU/L 11/17/2017 Unknown A FOOD C P 2010932 [place] Cl Class 0 11/17/2017 Unknown A FOOD C P [id number] [place] [facility] <0.35 kU/L 11/17/2017 Unknown A FOOD C P 5840002 [place] CL Class 0 11/17/2017 Un known A FOOD C P 6680510 Chicken Meat Ct <0.35 kU/L 11/17/2017 U nknown A FOOD C P 2650637 [place] Cl Class 0 11/17/2017 Unknown A FOOD C P 9832596 [place] Ct <0.35 kU/L 11/17/2017 Unknown A FOOD C P 7884141 [place] Meat Cl Class 0 11/17/2017 Unkn own A FOOD C P [id number] [place]ec[place] Meat Ct <0.35 kU/L 11/17/2017 Unk nown A NUTS PNL 8971248 Peanut Cl Class 0 11/17/2017 Unknown A NUTS PNL 9308733 Peanut Ct <0.35 kU/L 11/17/2017 Unknown A NUTS PNL 6244724 [place] Meat Cl Class 0 11/17/2017 Unk nown A NUTS PNL 4611948 [place] [facility] <0.35 kU/L 11/17/2017 Un known A NUTS PNL 1878815 [place] Cl Class 0 11/17/2017 Unkn own A NUTS PNL 5214512 [place] Ct <0.35 kU/L 11/17/2017 Unk nown A NUTS PNL 0565551 [place] Cl Class 0 11/17/2017 Unknown A NUTS PNL 6567108 [place] Ct <0.35 kU/L 11/17/2017 Unknown A NUTS PNL 7357792 [place] Cl Class 0 11/17/2017 Unknow n A NUTS PNL 4183898 [place] Ct <0.35 kU/L 11/17/2017 Unkno wn A NUTS PNL 6370561 [place] Cl Class 0 11/17/2017 Unkno wn A NUTS PNL 2911895 [place] Ct <0.35 kU/L 11/17/2017 Unkn own A NUTS PNL 9188350 [place] Cl Class 0 11/17/2017 Unknown A NUTS PNL 8495354 [place] Ct <0.35 kU/L 11/17/2017 Unknown A NUTS PNL 4351886 [place] Cl Class 0 11/17/2017 Unkno wn A NUTS PNL 8643267 [place] Ct <0.35 kU/L 11/17/2017 Unkn own A NUTS PNL 7970674 Allergen Interp See Note 11/17/2017 Un known A FRT/VG P 4177931 [place] Cl Class 0 11/17/2017 Unkn own A FRT/VG P 8460594 [place] Ct <0.35 kU/L 11/17/2017 Unk nown A FRT/VG P 5870196 [place] Cl Class 0 11/17/2017 Unknown A FRT/VG P 6880061 [place] Ct <0.35 kU/L 11/17/2017 Unknown A FRT/VG P 7011852 [place] Cl Class 0 11/17/2017 Unkn own A FRT/VG P 0287147 [place] [facility] <0.35 kU/L 11/17/2017 Unk nown A FRT/VG P 7571375 [place] Cl Class 0 11/17/2017 Unknown A FRT/VG P [id number] [place] Ct <0.35 kU/L 11/17/2017 Unknown A FRT/VG P 2244695 [place] Cl Class 0 11/17/2017 Unknown A FRT/VG P 9220302 [place] <0.35 kU/L 11/17/2017 Unknown A FRT/VG P 9858732 [place] Cl Class 1 11/17/2017 Unknown A FRT/VG P [id number] [place] Ct 0.48 kU/L 11/17/2017 Unknown A FRT/VG P 4432003 [place] Cl Class 0 11/17/2017 Unk nown A FRT/VG P 0633145 [place] Ct <0.35 kU/L 11/17/2017 Un known A FRT/VG P [id number] [place] Cl Class 0 11/17/2017 Unk nown A FRT/VG P 3418907 [place] Ct <0.35 kU/L 11/17/2017 Un known A FRT/VG P 6859995 [place] Cl Class 0 11/17/2017 Unknown A FRT/VG P 2437991 [place] Ct <0.35 kU/L 11/17/2017 Unknown A FRT/VG P 0049399 [place] Cl Class 0 11/17/2017 Unknown A FRT/VG P 2226191 [place]a Ct <0.35 kU/L 11/17/2017 Unknown A FRT/VG P 6888652 [place] Cl Class 0 11/17/2017 Unkn own A FRT/VG P 3612406 [place] Ct <0.35 kU/L 11/17/2017 Unk nown A FRT/VG P 2963806 [place]t [place] Cl Class 0 11/17/2017 Unkn own A FRT/VG P 1535274 Swt [place] Ct <0.35 kU/L 11/17/2017 Unk nown THYROID STIMULATING HORMONE 68201 TSH 1.371 uIU/mL 09/03/2017 Unknown FREE T4 88019 T4 Free 1.26 ng/dL 09/03/2017 Unknown ASSAY TRIIODOTHYRONINE (T3) 50956 T3 Total 0.9 ng/mL Unknown COMPLETE BLOOD COUNT [id number] WBC 5.9 10e9/L 07/31/20 17 Unknown COMPLETE BLOOD COUNT [id number] RBC 4.64 10e12/L 2016 Unknown COMPLETE BLOOD COUNT 0476209 HEMOGLOBIN 14.2 g/dL 07/31/20 17 Unknown COMPLETE BLOOD COUNT 8028121 HEMATOCRIT 42.1 % 07/31/20 17 Unknown COMPLETE BLOOD COUNT 4034302 MCV 90.7 fL 7 Unknown COMPLETE BLOOD COUNT 9605375 MCH 30.6 pg 7 Unknown COMPLETE BLOOD COUNT 0573821 MCHC 33.7 g/dL 7 Unknown COMPLETE BLOOD COUNT 8881058 PLATELET COUNT 195 10e9/L Unknown COMPLETE BLOOD COUNT 4167481 Mean Plt Volume 10.0 fL Unknown COMPLETE BLOOD COUNT 7089056 Neut Auto 47.5 % 7 Unknown COMPLETE BLOOD COUNT 4251660 Lymph Auto 37.4 % 07/31/20 17 Unknown COMPLETE BLOOD COUNT 3567126 [place] Auto 11.7 % 7 Unknown COMPLETE BLOOD COUNT 5113042 Eos Auto 3.2 % 7 Unknown COMPLETE BLOOD COUNT 8120215 RDW 12.8 % 7 Unknown COMPLETE BLOOD COUNT 9564104 Baso Auto 0.2 % 7 Unknown COMPLETE BLOOD COUNT 6043231 Neutrophil Abs 2.80 10e9/L Unknown COMPLETE BLOOD COUNT 1568654 Lymphocyte Abs 2.21 10e9/L Unknown COMPLETE BLOOD COUNT 7517467 Monocyte Abs 0.69 10e9/L 07/18 Unknown COMPLETE BLOOD COUNT 4664175 Eosinophil Abs 0.19 10e9/L Unknown COMPLETE BLOOD COUNT 1670124 RDW-SD 41.6 fL 7 Unknown COMPLETE BLOOD COUNT 8259172 Basophil Abs 0.01 10e9/L 07/18 Unknown LIPID GROUP 43202 Cholesterol 186 mg/dL 07/31/2017 Unkno wn LIPID GROUP 10598 Triglyceride 129 mg/dL 07/31/2017 Unkn own LIPID GROUP 22568 HDL CHOLESTEROL 79 mg/dL 07/31/2017 U nknown LIPID GROUP 92228 Chol/HDL Ratio 2.35 ratio 07/31/2017 U nknown LIPID GROUP 35847 NON-HDL Chol 107 mg/dL 07/31/2017 Unkn own LIPID GROUP 99188 LDL Cholesterol 81 mg/dL 07/31/2017 U nknown GFR CALC 7552609 GFR Non Afr Amr >60 mL/min 07/31/2017 Un known GFR CALC 2364221 GFR Afr Amr >60 mL/min 07/31/2017 Unknow n COMPREHENSIVE METABOLIC 56609 AST 19 U/L 2016 Unknown COMPREHENSIVE METABOLIC 62478 ALT 12 U/L 2016 Unknown COMPREHENSIVE METABOLIC 65531 BUN 15 mg/dL 2016 Unknown COMPREHENSIVE METABOLIC 66889 ALBUMIN 4.4 g/dL 2016 Unknown COMPREHENSIVE METABOLIC 21320 CHLORIDE 102 mmol/L 07/31 Unknown COMPREHENSIVE METABOLIC 27178 Bili Total 0.9 mg/dL 07/31 Unknown COMPREHENSIVE METABOLIC 30318 ALK PHOS 53 U/L 2016 Unknown COMPREHENSIVE METABOLIC 14330 SODIUM 138 mmol/L 07/31 Unknown COMPREHENSIVE METABOLIC 53271 CREATININE 1.06 mg/dL 07/18 Unknown COMPREHENSIVE METABOLIC 47884 CALCIUM 9.3 mg/dL 2016 Unknown COMPREHENSIVE METABOLIC 90157 POTASSIUM 4.0 mmol/L 07/31 Unknown COMPREHENSIVE METABOLIC 34157 Total Protein 6.8 g/dL Unknown COMPREHENSIVE METABOLIC 15729 Glucose 86 mg/dL 2016 Unknown COMPREHENSIVE METABOLIC 27206 Bicarbonate 28 mmol/L 07/18 Unknown COMPREHENSIVE METABOLIC 62763 AGAP 8 mmol/L 2016 Unknown COMPREHENSIVE METABOLIC 02206 AST 18 U/L 2015 Unknown COMPREHENSIVE METABOLIC 89179 ALT 9 U/L 2015 Unknown COMPREHENSIVE METABOLIC 84090 BUN 11 mg/dL 2015 Unknown COMPREHENSIVE METABOLIC 37511 ALBUMIN 4.2 g/dL 2015 Unknown COMPREHENSIVE METABOLIC 07587 CHLORIDE 104 mmol/L 05/19 Unknown COMPREHENSIVE METABOLIC 02069 Bili Total 1.2 mg/dL 05/19 Unknown COMPREHENSIVE METABOLIC 89136 ALK PHOS 54 U/L 2015 Unknown COMPREHENSIVE METABOLIC 90096 SODIUM 140 mmol/L 05/19 Unknown COMPREHENSIVE METABOLIC 91227 CREATININE 1.03 mg/dL 10/2015 Unknown COMPREHENSIVE METABOLIC 64963 CALCIUM 9.3 mg/dL 2015 Unknown COMPREHENSIVE METABOLIC 62890 POTASSIUM 4.9 mmol/L 05/19 Unknown COMPREHENSIVE METABOLIC 82231 Total Protein 6.7 g/dL Unknown COMPREHENSIVE METABOLIC 69661 Glucose 92 mg/dL 2015 Unknown COMPREHENSIVE METABOLIC 20034 Bicarbonate 28 mmol/L 10/2015 Unknown COMPREHENSIVE METABOLIC 45211 AGAP 8 mmol/L 2015 Unknown THYROID STIMULATING HORMONE 76075 TSH 1.545 uIU/mL 05/19/2016 Unknown GFR CALC 9895855 GFR Non Afr Amr >60 mL/min 05/19/2016 Un known GFR CALC 6715666 GFR Afr Amr >60 mL/min 05/19/2016 Unknow n VITAMIN B 12 28332 VITAMIN B12 298 pg/mL 05/19/2016 Unkn own COMPLETE BLOOD COUNT 5671247 WBC 5.2 10e9/L 05/19/20 16 Unknown COMPLETE BLOOD COUNT 6968557 RBC 4.34 10e12/L 2015 Unknown COMPLETE BLOOD COUNT 3914381 HEMOGLOBIN 12.9 g/dL 05/19/20 16 Unknown COMPLETE BLOOD COUNT 5172223 HEMATOCRIT 38.9 % 05/19/20 16 Unknown COMPLETE BLOOD COUNT 5508540 MCV 89.6 fL 6 Unknown COMPLETE BLOOD COUNT 5140510 MCH 29.7 pg 6 Unknown COMPLETE BLOOD COUNT 0804816 MCHC 33.2 g/dL 6 Unknown COMPLETE BLOOD COUNT 9595253 PLATELET COUNT 200 10e9/L 10/2015 Unknown COMPLETE BLOOD COUNT 4845956 Mean Plt Volume 10.1 fL 10/2015 Unknown COMPLETE BLOOD COUNT 5140111 Neut Auto 45.4 % 6 Unknown COMPLETE BLOOD COUNT 2958347 Lymph Auto 35.6 % 05/19/20 16 Unknown COMPLETE BLOOD COUNT 6355012 [place] Auto 11.9 % 6 Unknown COMPLETE BLOOD COUNT 5560557 RDW 12.7 % 6 Unknown COMPLETE BLOOD COUNT 9042643 Eos Auto 6.7 % 6 Unknown COMPLETE BLOOD COUNT 1242857 Baso Auto 0.4 % 6 Unknown COMPLETE BLOOD COUNT 6763523 Neutrophil Abs 2.36 10e9/L Unknown COMPLETE BLOOD COUNT 1411962 Lymphocyte Abs 1.85 10e9/L Unknown COMPLETE BLOOD COUNT 0881279 Monocyte Abs 0.62 10e9/L 10/2015 Unknown COMPLETE BLOOD COUNT 6741157 Eosinophil Abs 0.35 10e9/L Unknown COMPLETE BLOOD COUNT 7986181 RDW-SD 40.6 fL 6 Unknown COMPLETE BLOOD COUNT 8900509 Basophil Abs 0.02 10e9/L 10/2015 Unknown LIPID GROUP 09539 Cholesterol 197 mg/dL 05/19/2016 Unkno wn LIPID GROUP 17833 Triglyceride 92 mg/dL 05/19/2016 Unkn own LIPID GROUP 17301 HDL CHOLESTEROL 58 mg/dL 05/19/2016 U nknown LIPID GROUP 13213 Chol/HDL Ratio 3.40 ratio 05/19/2016 U nknown LIPID GROUP 74875 NON-HDL Chol 139 mg/dL 05/19/2016 Unkn own LIPID GROUP 77504 LDL Cholesterol 121 mg/dL 05/19/2016 U nknown FREE T4 83075 T4 Free 1.19 ng/dL 05/19/2016 Unknown COMPREHENSIVE METABOLIC 21887 AST 19 U/L 2014 Unknown COMPREHENSIVE METABOLIC 22321 ALT 10 IU/L 2014 Unknown COMPREHENSIVE METABOLIC 88604 BUN 20 MG/DL 2014 Unknown COMPREHENSIVE METABOLIC 68075 ALBUMIN 4.4 GM/DL 2014 Unknown COMPREHENSIVE METABOLIC 64889 CHLORIDE 104 MMOL/L 04/05 Unknown COMPREHENSIVE METABOLIC 92838 BILI TOT 2.2 MG/DL 2014 Unknown COMPREHENSIVE METABOLIC 98280 ALK PHOS 55 U/L 2014 Unknown COMPREHENSIVE METABOLIC 10545 SODIUM 138 MMOL/L 04/05 Unknown COMPREHENSIVE METABOLIC 16922 CREATININE 1.04 MG/DL 03/18 Unknown COMPREHENSIVE METABOLIC 39110 CALCIUM 9.3 MG/DL 2014 Unknown COMPREHENSIVE METABOLIC 26211 POTASSIUM 4.5 MMOL/L 04/05 Unknown COMPREHENSIVE METABOLIC 71823 PROT TOT 6.7 GM/DL 2014 Unknown COMPREHENSIVE METABOLIC 39199 Glucose 77 MG/DL 2014 Unknown COMPREHENSIVE METABOLIC 03908 BICARB 25 MMOL/L 2014 Unknown COMPREHENSIVE METABOLIC 31695 ANION GAP 9 MEQ/L 2014 Unknown GFR CALC 8742007 GFR AA >60 ML/MIN 04/05/2015 Unknown GFR CALC 0587736 GFR NON-AA >60 ML/MIN 04/05/2015 Unknown LIPID GROUP 44438 HDL TEST 60 MG/DL 04/05/2015 Unknown LIPID GROUP 28119 TRIG 70 MG/DL 04/05/2015 Unknown LIPID GROUP 98756 TEST LDL 137 MG/DL 04/05/2015 Unknown LIPID GROUP 35548 CHOL 211 MG/DL 04/05/2015 Unknown LIPID GROUP 93888 RCHOL/HDL 3.52 RATIO 04/05/2015 Unknow n LIPID GROUP 12674 NON-HDL CH 151 MG/DL 04/05/2015 Unknow n COMPLETE BLOOD COUNT 5528889 WBC 5.3 10e9/L 04/05/20 15 Unknown COMPLETE BLOOD COUNT 4788329 RBC 4.42 10e12/L 2014 Unknown COMPLETE BLOOD COUNT 3774922 HGB 13.4 g/dL 5 Unknown COMPLETE BLOOD COUNT 7602346 HCT DET 39.6 % 5 Unknown COMPLETE BLOOD COUNT 3410455 MCV 89.6 fL 5 Unknown COMPLETE BLOOD COUNT 9377301 MCH 30.3 pg 5 Unknown COMPLETE BLOOD COUNT 4633440 MCHC 33.8 g/dL 5 Unknown COMPLETE BLOOD COUNT 3698764 PLT 201 10e9/L 04/05/20 15 Unknown COMPLETE BLOOD COUNT 0988674 MPV 10.3 fL 5 Unknown COMPLETE BLOOD COUNT 0947527 LUPE % 56.4 % 5 Unknown COMPLETE BLOOD COUNT 7262458 LY % 24.8 % 5 Unknown COMPLETE BLOOD COUNT 5053642 MON % 12.8 % 5 Unknown COMPLETE BLOOD COUNT 2805857 EOS % 5.4 % 5 Unknown COMPLETE BLOOD COUNT 4818747 BASO % 0.6 % 5 Unknown COMPLETE BLOOD COUNT 4261334 RDW 13.2 % 5 Unknown COMPLETE BLOOD COUNT 3358311 ABS LUPE 2.99 10e9/L 015 Unknown COMPLETE BLOOD COUNT 4449946 ABS LYMPH 1.31 10e9/L 015 Unknown COMPLETE BLOOD COUNT 8875415 ABS MONO 0.68 10e9/L 015 Unknown COMPLETE BLOOD COUNT 0659417 ABS EOS 0.29 10e9/L 015 Unknown COMPLETE BLOOD COUNT 6855114 ABS BASO 0.03 10e9/L 015 Unknown COMPLETE BLOOD COUNT 6877858 RDW-SD 42.3 fL 5 Unknown LIPID GROUP 48512 HDL TEST 51 MG/DL 07/19/2012 Unknown LIPID GROUP 09004 TRIG 129 MG/DL 07/19/2012 Unknown LIPID GROUP 33243 TEST LDL 98 MG/DL 07/19/2012 Unknown LIPID GROUP 22172 CHOL 175 MG/DL 07/19/2012 Unknown LIPID GROUP 94958 RCHOL/HDL 3.43 RATIO 07/19/2012 Unknow n COMPREHENSIVE METABOLIC 02268 AST 18 U/L 2011 Unknown COMPREHENSIVE METABOLIC 29517 ALT 12 IU/L 2011 Unknown COMPREHENSIVE METABOLIC 22810 BUN 10 MG/DL 2011 Unknown COMPREHENSIVE METABOLIC 55911 ALBUMIN 4.1 GM/DL 2011 Unknown COMPREHENSIVE METABOLIC 30843 CHLORIDE 103 MMOL/L 07/19 Unknown COMPREHENSIVE METABOLIC 68659 BILI TOT 0.9 MG/DL 2011 Unknown COMPREHENSIVE METABOLIC 67665 ALK PHOS 62 U/L 2011 Unknown COMPREHENSIVE METABOLIC 52009 SODIUM 138 MMOL/L 07/19 Unknown COMPREHENSIVE METABOLIC 36305 CREATININE 1.08 MG/DL 10/2011 Unknown COMPREHENSIVE METABOLIC 90221 CALCIUM 9.1 MG/DL 2011 Unknown COMPREHENSIVE METABOLIC 64162 POTASSIUM 4.2 MMOL/L 07/19 Unknown COMPREHENSIVE METABOLIC 50561 PROT TOT 6.7 GM/DL 2011 Unknown COMPREHENSIVE METABOLIC 69326 Glucose 101 MG/DL 2011 Unknown COMPREHENSIVE METABOLIC 76178 BICARB 27 MMOL/L 2011 Unknown COMPREHENSIVE METABOLIC 40037 ANION GAP 8 MEQ/L 2011 Unknown GFR CALC 0798379 GFR AA >60 ML/MIN 07/19/2012 Unknown GFR CALC 2624116 GFR NON-AA >60 ML/MIN 07/19/2012 Unknown Procedures Procedure Codes Date THER/PROPH/DIAG INJ SC/IM CPT-4: 28579 01/13/2019 TRIAMCINOLONE ACET INJ NOS CPT-4: J3301 01/13/2019 DEXAMETHASONE SODIUM PHOS CPT-4: J1100 01/13/2019 ROUTINE VENIPUNCTURE CPT-4: 66702 09/04/2018 COMPREHEN METABOLIC PANEL CPT-4: 66662 09/04/2018 COMPLETE CBC W/AUTO DIFF WBC CPT-4: 78936 09/04/2018 LIPID PANEL CPT-4: 23235 09/04/2018 ASSAY OF PSA TOTAL CPT-4: 58944 09/04/2018 ASSAY THYROID STIM HORMONE CPT-4: 93991 09/04/2018 URINALYSIS NONAUTO W/O SCOPE CPT-4: 98463 05/15/2018 ROUTINE VENIPUNCTURE CPT-4: 47031 11/16/2017 A FRT/VG P CPT-4: 1533418 11/16/2017 A FOOD C P CPT-4: 4645128 11/16/2017 A NUTS PNL CPT-4: 4224704 11/16/2017 THER/PROPH/DIAG INJ SC/IM CPT-4: 25760 11/06/2017 TRIAMCINOLONE ACET INJ NOS CPT-4: J3301 11/06/2017 DEXAMETHASONE SODIUM PHOS CPT-4: J1100 11/06/2017 ROUTINE VENIPUNCTURE CPT-4: 20282 09/03/2017 ASSAY OF FREE THYROXINE CPT-4: 14925 09/03/2017 ASSAY THYROID STIM HORMONE CPT-4: 61293 09/03/2017 ASSAY TRIIODOTHYRONINE (T3) CPT-4: 08452 09/03/2017 ROUTINE VENIPUNCTURE CPT-4: 26127 07/31/2017 COMPREHEN METABOLIC PANEL CPT-4: 82094 07/31/2017 COMPLETE CBC W/AUTO DIFF WBC CPT-4: 66129 07/31/2017 LIPID PANEL CPT-4: 09751 07/31/2017 FLU VACC PRSV FREE INC ANTIG 65 AND OLDER CPT-4: 42915 07/04/2017 ADMIN INFLUENZA VIRUS VAC CPT-4: G0008 07/04/2017 ROUTINE VENIPUNCTURE CPT-4: 84537 02/26/2017 ASSAY THYROID STIM HORMONE CPT-4: 26982 02/26/2017 COMPREHEN METABOLIC PANEL CPT-4: 40035 02/26/2017 COMPLETE CBC W/AUTO DIFF WBC CPT-4: 96336 02/26/2017 LIPID PANEL CPT-4: 65038 02/26/2017 ASSAY OF PSA TOTAL CPT-4: 38229 02/26/2017 FLUZONE, 5ML (Medicare) CPT-4: Q2038 06/28/2016 ADMIN INFLUENZA VIRUS VAC CPT-4: G0008 06/28/2016 ROUTINE VENIPUNCTURE CPT-4: 47398 05/19/2016 ASSAY OF FREE THYROXINE CPT-4: 48652 05/19/2016 ASSAY THYROID STIM HORMONE CPT-4: 15932 05/19/2016 COMPREHEN METABOLIC PANEL CPT-4: 30651 05/19/2016 COMPLETE CBC W/AUTO DIFF WBC CPT-4: 24566 05/19/2016 LIPID PANEL CPT-4: 54114 05/19/2016 VITAMIN B-12 CPT-4: 99213 05/19/2016 PPPS, initial visit CPT-4: G0438 05/10/2016 ROUTINE VENIPUNCTURE CPT-4: 99577 04/05/2015 ASSAY THYROID STIM HORMONE CPT-4: 75003 04/05/2015 COMPREHEN METABOLIC PANEL CPT-4: 56587 04/05/2015 COMPLETE CBC W/AUTO DIFF WBC CPT-4: 64393 04/05/2015 LIPID PANEL CPT-4: 15473 04/05/2015 ASSAY OF PSA TOTAL CPT-4: 03090 04/05/2015 ROUTINE VENIPUNCTURE CPT-4: 57014 07/19/2012 COMPREHEN METABOLIC PANEL CPT-4: 99001 07/19/2012 LIPID PANEL CPT-4: 80659 07/19/2012 ELECTROCARDIOGRAM COMPLETE CPT-4: 86051 03/22/2012 Vital Signs Date Vital 09/24/2019 Blood Pressure 1: 125/72 Code: 8480-6 BMI: 19.8 Code: 07483-1 Heart Rate 1: 88 bpm Height: 5'11" [...] 1: 102/60 Code: 8480-6 BMI: 19.1 Code: 48503-9 Heart Rate 1: 82 bpm Height: 5'11" Respiratory Rate: 22 bpm SpO2: 97% Tempera ture: 36.4 (C) / 97.6 (F) Weight: 137 lbs 04/25/2018 Blood Pressure 1: 118/64 Code: 8480-6 BMI: 19.2 Code: 58488-6 Heart Rate 1: 98 bpm Height: 5'11" Respiratory Rate: 20 bpm SpO2: 99% Tempera ture: 36.4 (C) / 97.6 (F) Weight: 138 lbs 11/06/2017 Blood Pressure 1: 108/68 Code: 8480-6 BMI: 18.5 Code: 63814-9 Heart Rate 1: 68 bpm Height: 5'11" Respiratory Rate: 20 bpm SpO2: 96% Tempera ture: 36.8 (C) / 98.2 (F) Weight: 133 lbs 09/03/2017 Blood Pressure 1: 122/64 Code: 8480-6 BMI: 17.6 Code: 97079-1 Heart Rate 1: 90 bpm Height: 5'11" Respiratory Rate: 20 bpm SpO2: 98% Tempera ture: 36.4 (C) / 97.6 (F) Weight: 126 lbs 08/21/2017 Blood Pressure 1: 114/80 Code: 8480-6 BMI: 17.9 Code: 53971-8 Heart Rate 1: 80 bpm Height: 5'11" Respiratory Rate: 20 bpm SpO2: 95% Tempera ture: 36.6 (C) / 97.9 (F) Weight: 128 lbs 02/13/2017 Blood Pressure 1: 122/60 Code: 8480-6 BMI: 18.5 Code: 53196-4 Heart Rate 1: 76 bpm Height: 5'11" Respiratory Rate: 20 bpm SpO2: 96% Tempera ture: 36.9 (C) / 98.4 (F) Weight: 133 lbs 11/23/2016 Blood Pressure 1: 126/70 Code: 8480-6 BMI: 18.5 Code: 92574-0 Heart Rate 1: 100 bpm Height: 5'11" Respiratory Rate: 20 bpm SpO2: 96% Tempera ture: 37.1 (C) / 98.8 (F) Weight: 133 lbs 05/23/2016 Blood Pressure 1: 128/82 Code: 8480-6 BMI: 18.5 Code: 62550-6 Heart Rate 1: 88 bpm Height: 5'11" Respiratory Rate: 20 bpm Temperature: 36 .7 (C) / 98.0 (F) Weight: 133 lbs 05/10/2016 Blood Pressure 1: 146/70 Code: 8480-6 BMI: 18.5 Code: 26095-3 Heart Rate 1: 84 bpm Height: 5'11" Respiratory Rate: 20 bpm Temperature: 36 .7 (C) / 98.1 (F) Weight: 133 lbs 04/01/2015 Blood Pressure 1: 102/60 Code: 8480-6 BMI: 18.5 Code: 90424-4 Heart Rate 1: 64 bpm Height: 5'11" Respiratory Rate: 20 bpm Temperature: 36 .8 (C) / 98.2 (F) Weight: 133 lbs 01/13/2014 Blood Pressure 1: 124/78 Code: 8480-6 BMI: 19.8 Code: 21152-8 Heart Rate 1: 76 bpm Height: 5'11" Respiratory Rate: 20 bpm Temperature: 36 .8 (C) / 98.2 (F) Weight: 142 lbs 04/03/2012 Blood Pressure 1: 106/76 Code: 8480-6 BMI: 20.9 Code: 96230-4 Heart Rate 1: 84 bpm Height: 5'11" Respiratory Rate: 20 bpm Temperature: 36 .7 (C) / 98.0 (F) Weight: 150 lbs 12/20/2011 Blood Pressure 1: 116/60 Code: 8480-6 BMI: 20.1 Code: 08877-0 Heart Rate 1: 80 bpm Height: 5'11" Respiratory Rate: 20 bpm Temperature: 36 .4 (C) / 97.6 (F) Weight: 144 lbs 10/24/2011 Blood Pressure 1: 132/74 Code: 8480-6 BMI: 19.7 Code: 81426-7 Heart Rate 1: 96 bpm Height: 5'11" [...] 04/05/2015 follow up 04/01/2015 follow up 01/13/2014 [facility] from Justin Palacio'justin in November 2012 lab draw 07/19/2012 follow up 04/03/2012 S/P stent placement in LAD, changed effient to plavix hip pain 12/20/2011 dyskinesia or tremor 10/24/2011 follow up 03/13/2011 started on effient, zocor, and atenolol follow up 02/20/2011 Hospital Fwup/Dr Christian rojas follow up 02/23/2010 hosp [facility], appt with Dr Bajwa 03/22/10 insomnia 01/12/2010 problems falling and staying asleep, takes nortriptyline Encounters Encounter Performer Location Codes Date ([id number]) OFFICE/OUTPATIENT VISIT EST Diagnosis: Encounter for therapeutic drug level monitoring[ICD10: Z51.81] Diagnosis: Essential tremor[ICD10: G25.0] Verna Alvarez [place] CPT-4: 95980 09/24/2019 ([id number]) OFFICE/OUTPATIENT VISIT EST Diagnosis: Noninfective gastroenteritis and colitis, unspecified[ICD10: K52.9] Diagnosis: Hemorrhage of anus and rectum[ICD10: K62.5] Vonnie Loza [place] CPT-4: 07417 05/26/2019 ([id number]) OFFICE/OUTPATIENT VISIT EST Diagnosis: Other intervertebral disc degeneration, 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] Diagnosis: Other forms of dyspnea[ICD10: R06.09] Vonnie Vásquez KARIE Loza [place] CPT-4: 16073 03/17/2019 OFFICE/OUTPATIENT VISIT EST Diagnosis: Other intervertebral disc degeneration, 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] Diagnosis: Other symptoms and signs involving the musculoskeletal system[ICD10: R29.898] Vonnie Loza [place] CPT-4: 37729 02/18/2019 ([id number]) OFFICE/OUTPATIENT VISIT EST Diagnosis: Other allergic rhinitis[ICD10: J30.89] Akilah GASPAR [employer]fe [employer] CPT-4: 66848 01/13/2019 ([id number]) NURSE/OUTPATIENT VISIT EST Diagnosis: Mixed hyperlipidemia[ICD10: E78.2] Diagnosis: Essential (primary) hypertension[ICD10: I10] Diagnosis: Encounter for screening for malignant neoplasm of prostate[ICD10: Z12.5] Diagnosis: Encounter for general adult medical examination with abnormal findings[ICD10: Z00.01] Diagnosis: Benign prostatic hyperplasia without lower urinary tract symptoms[ICD10: N40.0] Vonnie COLMENARES [employer] [place] CPT-4: 20469 09/04/2018 ([id number]) OFFICE/OUTPATIENT VISIT EST Diagnosis: Otorrhea, left ear[ICD10: H92.12] Diagnosis: Impacted cerumen, right ear[ICD10: H61.21] Verna MATHEWS DO 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 CPT-4: 62708 08/26/2018 ([id number]) OFFICE/OUTPATIENT VISIT EST Diagnosis: Pelvic and perineal pain[ICD10: R10.2] Verna MATHEWS 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 CPT-4: 24482 04/25/2018 ([id number]) OFFICE/OUTPATIENT VISIT EST Diagnosis: Idiopathic urticaria[ICD10: L50.1] Diagnosis: Other urticaria[ICD10: L50.8] Vonnie MATHEWS [facility] CPT-4: 04574 11/16/2017 ([id number]) OFFICE/OUTPATIENT VISIT EST Diagnosis: Idiopathic urticaria[ICD10: L50.1] Diagnosis: Other urticaria[ICD10: L50.8] Diagnosis: Other forms of dyspnea[ICD10: R06.09] Vonnie BREWERNE Denia MATHEWS 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] Diagnosis: Mixed hyperlipidemia[ICD10: E78.2] Diagnosis: Essential tremor[ICD10: G25.0] Diagnosis: Essential (primary) hypertension[ICD10: I10] Diagnosis: Abnormal weight loss[ICD10: R63.4] Vonnie Sebastianalyssaranjan RAFAT REA SEBASTIANRichard Pauer - 3P CPT-4: 80932 08/21/2017 ([id number]) OFFICE/OUTPATIENT VISIT EST Diagnosis: Mixed hyperlipidemia[ICD10: E78.2] Diagnosis: Essential (primary) hypertension[ICD10: I10] 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] Diagnosis: Anemia, unspecified[ICD10: D64.9] Vonnie Orendranjan ASCENCIOMASRHA Galarza Denia SEBASTIANRichard Pauer - 3P CPT-4: 20883 07/31/2017 ([id number]) OFFICE/OUTPATIENT VISIT EST Diagnosis: FLU VACCINE[ICD10: Z23] Vonnie Sebastianalyssaranjan ASCENCIOVONNIE Denia GERMAN [place] CPT-4: 08588 07/04/2017 ([id number]) OFFICE/OUTPATIENT VISIT EST Diagnosis: Mixed hyperlipidemia[ICD10: E78.2] Diagnosis: Essential tremor[ICD10: G25.0] 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 CPT-4: 54916 11/23/2016 ([id number]) OFFICE/OUTPATIENT VISIT EST Diagnosis: FLU VACCINE[ICD10: Z23] Vonnie GERMAN DO [facility] CPT-4: 70129 06/28/2016 OFFICE/OUTPATIENT VISIT EST Diagnosis: Open bite of right hand, initial encounter[ICD10: S61.451A] Vonnie MATHEWS DO 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 CPT-4: 61829 05/19/2016 ([id number]) OFFICE/OUTPATIENT VISIT EST Diagnosis: HYPERLIPIDEMIA NEC/NOS[ICD9: 272.4] Diagnosis: CAD[ICD9: 414.00] Diagnosis: TACHYCARDIA[ICD9: 785.0] Diagnosis: HYPERTENSION[ICD9: 401.9] Diagnosis: Routine medical exam[ICD9: V70.0] Vonnie MATHEWS DO [facility] CPT-4: 16511 04/05/2015 ([id number]) OFFICE/OUTPATIENT VISIT EST Diagnosis: HYPERTENSION[ICD9: 401.9] Diagnosis: HYPERLIPIDEMIA NEC/NOS[ICD9: 272.4] Diagnosis: CAD[ICD9: 414.00] Diagnosis: LUMB/LUMBOSAC DISC DEGEN[ICD9: 722.52] Vonnie LAINeri GASPAR Denia MATHEWS DO [facility] CPT-4: 85226 04/01/2015 ([id number]) OFFICE/OUTPATIENT VISIT EST Diagnosis: CHEST PAIN NOS[ICD9: 786.50] Diagnosis: PAIN IN THORACIC SPINE[ICD9: 724.1] Diagnosis: HYPERTENSION[ICD9: 401.9] Diagnosis: GERD[ICD9: 530.81] Vonnie MaciasKim ROMULONDER [facility] CPT-4: 97815 01/13/2014 ([id number]) OFFICE/OUTPATIENT VISIT EST Diagnosis: CAD[ICD9: 414.00] Diagnosis: HYPERLIPIDEMIA NEC/NOS[ICD9: 272.4] Vonniejuan jose Mathews SONUClary ANNA SKim ROMULONDER DO [facility] CPT-4: 54238 07/19/2012 ([id number]) OFFICE/OUTPATIENT VISIT EST Diagnosis: CAD[ICD9: 414.00] Diagnosis: INSOMNIA NOS[ICD9: 780.52] Vonnie Romulojuan miguel Loza OR [facility] CPT-4: 02314 04/03/2012 ([id number]) OFFICE/OUTPATIENT VISIT EST Diagnosis: CHEST PAIN NOS[ICD9: 786.50] Diagnosis: CAD[ICD9: 414.00] Vonnie ASCENCIOLINE JustinKim ROMULONDER DO [facility] CPT-4: 31164 03/22/2012 ([id number]) OFFICE/OUTPATIENT VISIT EST Diagnosis: PROSTATITIS[ICD9: 601.9] Diagnosis: TREMOR NEC[ICD9: 333.1] Vonnie Reid VONNIE JustinKim ROMULOND ER DO [facility] CPT-4: 42642 12/20/2011 OFFICE/OUTPATIENT VISIT EST Diagnosis: TREMOR NEC[ICD9: 333.1] Diagnosis: TACHYCARDIA[ICD9: 785.0] Diagnosis: HYPERTENSION[ICD9: 401.9] Vonnie Romuloalyssaranjan VONNIE JustinKim ORE NDER DO [facility] CPT-4: 32452 10/24/2011 OFFICE/OUTPATIENT VISIT EST Vonnie Romulojuan miguel COLMENARES JustinKim ROMULO NDER DO [facility] CPT- 4: 87156 03/13/2011 ([id number]) OFFICE/OUTPATIENT VISIT EST Vonnie GASPAR SKim ORENDER DO [facility] CPT-4: 15953 02/20/2011 ([id number]) OFFICE/OUTPATIENT VISIT, EST Vonnie Romulojuan miguel NELSON JustinKim REID [employer] CPT-4: 19523 02/23/2010 ([id number]) OFFICE/OUTPATIENT VISIT, EST Vonnie MATHEWS [employer] CPT-4: 89715 01/12/2010 Plan of Care Planned Activity Notes [...] him that pens can be purchased on [employer]. ICD-9 : 333.1 ICD-10 : G25.0 09/24/2019 Visit Diagnosis Plan: Noninfective gastroenteritis and colitis, unspecified Discussion: Flagyl Uinta diet Update colonoscopy ICD-9 : 558.9 ICD-10 : K52.9 05/26/2019 Visit Diagnosis Plan: Hemorrhage of anus and rectum Di scussion: Update colonoscopy ICD-9 : 569.3 ICD-10 : K62.5 05/26/2019 Appointment: [facility] [phone] [facility] [facility] request faxed 05/23; LM with medical records 05/26/19 Hospital Follow Up 05/26/2019 Care Plan: Referral Order SNOMED-CT : 30 [id number] Pending 05/26/2019 Visit Diagnosis Plan: Other intervertebral disc degene ration, lumbar region Discussion: Increase lyrica to 150mg po q HS Continue stretches from PT [facility] Fwup after that appointment ICD-9 : 722.52 ICD-10 : M51.36 03/17/2019 Appointment: Vonnie [facility]ws [facility] [phone] [facility] [facility] FOLLOW UP 03/17/2019 Visit Diagnosis Plan: Other intervertebral disc degene ration, lumbar region Discussion: Start PT Referral for epidural Will start lyrica 75mg po q HS once CT scan results obtained [facility] ambien Follow Up: 3 weeks ICD-9 : [...] : R29.898 02/18/2019 Appointment: Vonnie Mathews WPtel: [address] [place] [address] FOLLOW UP 02/18/2019 Appointment: Vonnie Mathews WPtel: [address] [place] [address] [place] CANCELED 02/18/2019 Visit Diagnosis Plan: Other [...] J30.89 01/13/2019 Appointment: Akilah Lopez [address] [place] [address] [place] Due for annual wellness ACUTE ILLNESS 01/14/20 19 Appointment: Vonnie Mathews WPtel: [address] [place], [place] [phone] [place] LAB 09/04/2018 Visit Diagnosis Plan: Impacted [...] : H92.12 09/03/2018 Appointment: Verna Ramirez [address] ACUTE ILLNESS 09/03/2018 Visit Diagnosis [...] M51.36 08/26/2018 Appointment: Vonnie Mathews WPtel: [phone] [facility] [place] FOLLOW UP 08/26/2018 Visit Diagnosis [...] ICD-10 : R10.2 05/15/2018 Appointment: Verna Ramirez [address] [place], [place] [id number] ACUTE ILLNESS 05/15/2018 Patient Education: Patient Medication Summary Completed 05/15/2018 Care Plan: US EXAM PELVIC COMPLETE scrotal LOINC : 77782-9 Pending 05/15/2018 Visit Diagnosis Plan: Other intervertebral [...] ICD-10 : I73.00 04/25/2018 Appointment: Verna Ramirez [address] [place] [address] MEDICATION REVIEW 04/25/2018 Patient Education: Patient Medication Summary Completed 04/25/2018 Appointment: Vonnie Mathews WPtel: [address] [place] [address] 11/16/2017 Patient Education: Patient Medication Summary Completed [...] : L50.1 11/06/2017 Appointment: Vonnie Mathews WPtel: [address] [place] [address] FOLLOW UP 11/06/2017 Patient Education: Patient Medication [...] ICD-10 : R63.4 09/03/2017 Appointment: Vonnie Mathewstel: [address] [place], [place] [phone] [place] FOLLOW UP 09/03/2017 Patient Education: Patient [...] Diagnosis Plan: Atherosclerotic he art disease of augustine coronary artery without angina pectoris Discussion: Sees Cardiology in 2 days To ER if CP returns before ICD-9 : 414.00 ICD-10 : I25.10 08/21/2017 Appointment: Vonnie Mathewstel: [address] [place], [place] [phone] [place] FOLLOW UP 08/21/2017 Patient Education: Patient Medication Summary Completed 08/21/2017 Appointment: Vonnie Mathewstel: [address] [place], [place] [phone] [place] LAB 07/31/2017 Patient Education: Patient Medication Summary Completed 07/31/2017 Appointment: Vonnie Mathews WPtel: [address] [place], [place] [phone] [place] INJECTION 07/04/2017 Patient Education: Patient Medication Summary Completed 07/04/2017 Appointment: Vonnie Mathews WPtel: [address] [place], [place] [phone] [place] LAB 02/26/2017 Patient Education: Patient Medication Summary Completed 02/26/2017 Visit Diagnosis Plan: Essential tremor Discussion: Con tinue clonazepam at 1mg q AM and primidone 50mg q HS Follow Up: 3 months ICD-9 : 333.1 ICD-10 : G25.0 02/13/2017 Appointment: Vonnie Mathews WPtel: [address] [place], [place] [phone] 02/08 confirmed~sl FOLLOW UP 02/13/2017 Patient Education: Patient Medication Summary Completed 02/13/2017 Appointment: Vonnie Mathews WPtel: [address] [place], [place] [phone] RESCHEDULED 01/23/2017 Visit Diagnosis Plan: Other intervertebral disc degene ration, lumbar region Discussion: DC oxycodone Tramadol 50mg 1-2 po TID prn pain Follow Up: 2 months ICD-9 : 722.52 ICD-10 : M51.36 11/23/2016 Visit Diagnosis Plan: Essential tremor Discussion: Inc rease clonazepam to 1mg po BID Discussed sinemet ICD-9 : 333.1 ICD-10 : G25.0 11/23/2016 Appointment: Vonnie Mathews WPtel: [address] [place], [place] [phone] 11/22 confirmed~sl MEDICATION REVIEW 11/23/2016 Patient Education: Patient Medication Summary Completed 11/23/2016 Patient Education: [facility] - [employer] - Clonazepam - 18-64 - Dynamic Portal ID Completed 11/23/2016 Appointment: Vonnie Mathews WPtel: [address] [place], [place] [phone] [place] INJECTION 06/28/2016 Patient Education: Patient Medication Summary Completed 06/28/2016 Referral: Fernando Day WPtel: #1 [facility] Shilpa Lopez [id number] per Maribeth, the patient is sched [...] if worsening 05/23/2016 Appointment: Vonnie Mathews WPtel: [address] [place], [place] [phone] ER Follow UP 05/23/2016 Patient Education: Patient Medication Summary Completed 05/23/2016 Appointment: Vonnie Mathews WPtel: [address] [place], [place] [phone] [place] LAB 05/19/2016 Patient Education: Patient Medication Summary Completed 05/19/2016 Visit Plan: Change coreg to 3.125mg BID Trial of low dose clonazepam 0.5mg BID for tremors Fwup with Dr. Ramsey as scheduled Return for fasting lab--CBC, CMP, TSH, free T4, Lipids, PSA, B12 Proceed with Colonoscopy 05/10/2016 Appointment: Vonnie Mathews WPtel: [address] [place], [place] [phone] 05/09 confirmed~sl Annual Well Visit 05/10/2016 Patient Education: Patient Medication Summary Completed 05/10/2016 Care Plan: Referral Order SNOMED-CT : 30 [id number] Pending 05/10/2016 Appointment: Vonnie Mathews WPtel: [address] [place], [place] [phone] [place] Rescheduled for 05/10/16 at 2PM~lb RESCHEDULED 04/26/2016 Referral: Danilo Ramsey WPtel: [facility] Denia Mercado [id number] [place] Referral Initiated 04/29/2015 Appointment: Vonnie Mathews WPtel: [address] [place], [place] [phone] [place] LAB 04/05/2015 Patient Education: Patient Medication Summary Completed 04/05/2015 Visit Plan: Return in AM for fasting lab --CMP, lipids, CBC, TSH, PSA Change hydrocodone to oxycodone 7.5/325mg 1-2 po TID Schedule with cardiology Needs colonoscopy once cardiology evaluation complete Will need to restart chol meds after lab Recheck 1mo on pain meds 04/01/2015 Appointment: Vonnie Mathews WPtel: [address] [place], [place] [phone] 03/31 confirmed -mf PHYSICAL 04/01/2015 Patient Education: Patient Medication Summary Completed 04/01/2015 Appointment: Vonnie Mathews WPtel: [address] [place] [address] Annual Well Visit 09/23/2014 Visit Plan: Continue protonix Pt has fwu p with Card next month Rec chiropracter or PT for ribs/thoracics being out and could be contributing to chest pain 01/13/2014 Appointment: Vonnie Mathews WPtel: [address] [place], [place] [phone] FOLLOW UP 01/13/2014 Patient Education: Patient Medication Summary Completed 01/13/2014 Appointment: Ariella Mcnally WPtel: [address] [place] [address] [place] FOLLOW UP 12/12/2013 Appointment: Malika Cárdenas WPtel: [address] [place], [place] [phone] PHYSICAL 12/12/2013 Appointment: Vonnie Mathews WPtel: [address] [place], [place] [phone] ACUTE ILLNESS 02/20/2013 Appointment: Vonnie Mathews WPtel: [address] [place], [place] [phone] [place] LAB 07/19/2012 Patient Education: Patient Medication Summary Completed 07/19/2012 Appointment: Vonnie Mathews WPtel: [address] [place], [place] [phone] [place] FOLLOW UP 04/03/2012 Patient Education: Patient Medication Summary Completed 04/03/2012 Appointment: Vonnie Mathews WPtel: [address] [place] [address] ACUTE ILLNESS 03/22/2012 Patient Education: Patient Medication Summary Completed 03/22/2012 Appointment: Vonnie Mathews WPtel: [address] [place] [address] FOLLOW UP 12/26/2011 Visit Plan: Add Cipro Continue current m eds 12/20/2011 Appointment: Vonnie Mathews WPtel: [address] [place] [address] ACUTE ILLNESS 12/20/2011 Patient Education: Patient Medication Summary Completed 12/20/2011 Visit Plan: Change neurontin to Cymbalta 30mg for 1wk then 60mg QD Add Propranolol for tremor 10/24/2011 Appointment: Vonnie Mathews WPtel: [address] [place] [address] ACUTE ILLNESS 10/24/2011 Appointment: Vonnie Mathews WPtel: [address] [place] [address] ACUTE ILLNESS 10/24/2011 Patient Education: Patient Medication Summary Completed 10/24/2011 Visit Plan: Continue current meds and fw up with Card as scheduled 03/13/2011 Appointment: Vonnie Mathews WPtel: [address] [place] [address] FOLLOW UP 03/13/2011 Patient Education: Patient Medication Summary Completed 03/13/2011 Visit Plan: Will obtain all records and lab from [facility] Discussed will likely need heart cath which pt states that Card did talk to him about in the hospital 02/20/2011 Appointment: Vonnie Mathews WPtel: [address] [place] [address] ACUTE ILLNESS 02/20/2011 Patient Education: Patient Medication Summary Completed 02/20/2011 Visit Plan: Cont Pepcid and Prilosec See Card for cardiac cath. 02/23/2010 Appointment: Vonnie Mathews WPtel: [phone] [place], [place] [phone] FOLLOW UP 02/23/2010 Patient Education: Patient Medication Summary Completed 02/23/2010 Visit Plan: Increase Pamelor to 75mg qhs Increase Hydrocodone to 10/325mg 1-2 po q6 prn 01/12/2010 Appointment: Vonnie Mathews WPtel: [phone] [facility] ACUTE ILLNESS 01/12/2010 Patient Education: Patient Medication Summary Completed 01/12/2010 Referral: Iván Pardo WPtel: [facility] [address] Referral Initiated Referral: Fernando Day WPtel: #[address] [place] [address] [place] Referral Completed Referral: Fernando Day WPtel: #1 [facility] Referral Appointment Requested Instructions Comment . [...]
--- OUTSIDE RECORDS SUMMARY | 2020-02-10 08:33 | XMS REPORT | CCD ---
Author Author Nash Mathews D.O. Organization [facility] Address [address] [place] [address] Phone Care Team Providers Care Math Professor Name Role Phone Vonnie Mathwes D.O., PP Unavailable CCM Unavailable Summary Purpose Interface Exchange Insurance Providers Payer name Policy type / Coverage type Covered green party ID Effective Begin Date Effective End Date WPS MEDIC[place] PART B [place] Part B [id number] 2018 Unknown Family History Family History data not found Social History Social History Element Codes Description Effective Dates Marital status Unknown 10/24/[address]: 567236624 Nonsmoker 03/29/2011 Allergies, Adverse Reactions, Alerts Substance [...] R63.4 08/21/2017 Active 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: [...] Fill Instructions clonazepam 1 mg tablet RxNorm: 599777 TAKE 1 TABLET BY MOUTH EV SUSAN AM 09/23/2019 10/22/2019 Active clonazepam 1 mg tablet RxNorm: 981290 TAKE 1 TABLET BY MOUTH EV SUSAN AM 08/21/2019 09/22/2019 Inactive Singulair 10 mg tablet RxNorm: 840297 TABLET(S) 1 TABLET(S) PO QD 1 10/11/2019 Active Flagyl 500 mg tablet RxNorm: 272083 1 Tablet(s) PO TID 05/26/2019 Inactive clonazepam 1 mg tablet RxNorm: 449714 TAKE 1 TABLET BY MOUTH EV SUSAN MORNING 05/23/2019 06/21/2019 Inactive pravastatin 20 mg tablet RxNorm: 851745 1 Tablet(s) PO QD 04/14/2019 10/10/2019 Active Needs updated fasting labs Singulair 10 mg tablet RxNorm: 895499 Tablet(s) 1 TABLET(S) PO QD 0 04/14/2019 07/12/2019 Inactive clonazepam 1 mg tablet RxNorm: 379112 1 Tablet(s) PO QAM 02/21/2019 0 05/23/2019 Inactive Bevespi Aerosphere 9 mcg-4.8 mcg HFA aerosol inhaler RxNorm: 2503957 2 Puff(s) INH BID 02/19/2019 No Stop Date Active ProAir HFA 90 mcg/actuation aerosol inhaler RxNorm: 859247 2 Puff(s) INH Q4H as needed 02/19/2019 09/24/2019 Inactive metoprolol tartrate 25 mg tablet RxNorm: 733097 1/2 Tablet(s) PO BI D 02/18/2019 05/18/2019 Inactive pravastatin 20 mg tablet RxNorm: 106837 1 Tablet(s) PO QD Needs updated fasting labs 01/13/2019 04/14/2019 Inactive Needs updated fa sting labs Singulair 10 mg tablet RxNorm: 474508 Tablet(s) 1 TABLET(S) PO QD 0 01/13/2019 04/12/2019 Inactive Plavix 75 mg tablet RxNorm: 607361 Tablet(s) 1 TABLET(S) PO QD 04/201906/20/2019 Inactive [SAVINGS FOR NON-COVERED SHANDA -- BIN:370943, PCN: ASPROD1, Group: XXXXX, ID# [id number], Questions: . THIS IS NOT INSURANCE.] Singulair 10 mg tablet RxNorm: 307410 1 TABLET(S) PO QD 10/29/2018 Inactive primidone 50 mg tablet RxNorm: 001263 2 TABLET(S) PO BI D TAKE 2 TABLETS BY MOUTH EVERY NIGHT AT BEDTIME 10/07/2018 01/12/2019 Inactive Patient requests 90 days supply pravastatin 20 mg tablet RxNorm: 612075 1 TABLET(S) PO QD 09/23/2018 01/12/2019 Inactive clonazepam 1 mg tablet RxNorm: 098925 1 Tablet(s) PO QAM 09/19/2018 0 12/17/2018 Inactive primidone 50 mg tablet RxNorm: 570688 TABLET(S) TAKE 2 TABLETS BY MOUTH EVERY NIGHT AT BEDTIME 09/18/2018 01/12/2019 Inactive ciprofloxacin 0.2 % ear drops in a dropperette RxNorm: 06773 6 2 Drop(s) left otic (ear) BID 09/03/2018 09/09/2018 Inactive primidone 50 mg tablet RxNorm: 214457 2 Tablet(s) PO BI D TAKE 2 TABLETS BY MOUTH EVERY NIGHT AT BEDTIME 08/26/2018 10/06/2018 Inactive Ambien 5 mg tablet RxNorm: 378114 TAKE 1 TABLET BY MOUTH EVERY NIGHT AT BEDTIME 08/05/2018 09/03/2018 Inactive Singulair 10 mg tablet RxNorm: 624377 1 TABLET(S) PO QD 07/23/2018 Inactive clonazepam 1 mg tablet RxNorm: 663237 TAKE 1 TABLET BY MOUTH EV SUSAN MORNING 07/23/2018 08/21/2018 Inactive Plavix 75 mg tablet RxNorm: 022940 1 TABLET(S) PO QD 07/04/201812/22 Inactive [SAVINGS FOR NON-COVERED DRUGS -- BIN:00 3585, PCN: ASPROD1, Group: XXXXX, ID# [id number], Questions: . THIS IS NOT INSURANCE.] clonazepam 1 mg tablet RxNorm: 627608 TAKE 1 TABLET BY MOUTH EV SUSAN MORNING 06/25/2018 07/23/2018 Inactive clonazepam 1 mg tablet RxNorm: 413416 TAKE 1 TABLET BY MOUTH EV SUSAN MORNING 05/23/2018 06/21/2018 Inactive primidone 50 mg tablet RxNorm: 996627 Tablet(s) TAKE 2 TABLETS BY MOUTH EVERY NIGHT AT BEDTIME 05/16/2018 08/25/2018 Inactive oxycodone-acetaminophen 7.5 mg-325 mg tablet RxNorm: 9138561 1-2 Tablet(s) PO TID as needed 04/25/2018 05/24/2018 Inactive Singulair 10 mg tablet RxNorm: 396277 1 Tablet(s) PO QD 04/25/2018 Inactive Medrol (Jose) 4 mg tablets in a dose pack RxNorm: 609924 Tablet(s) PO take as directed 04/25/2018 09/02/2018 Inactive clonazepam 1 mg tablet RxNorm: 819825 TAKE 1 TABLET BY MOUTH EV SUSAN MORNING 04/24/2018 05/22/2018 Inactive Plavix 75 mg tablet RxNorm: 241075 1 TABLET(S) PO QD 04/04/201807/02 Inactive [SAVINGS FOR NON-COVERED DRUGS -- BIN:00 3582, PCN: ASPROD1, Group: XXXXX, ID# [id number], Questions: . THIS IS NOT INSURANCE.] pravastatin 20 mg tablet RxNorm: 759006 1 Tablet(s) PO QD 03/21/2018 09/16/2018 Inactive ProAir HFA 90 mcg/actuation aerosol inhaler RxNorm: 252638 2 Puff(s) INH Q4H as needed 03/18/2018 03/17/2018 Inactive tamsulosin 0.4 mg capsule RxNorm: 127675 1 CAPSULE(S) PO QD 018 01/12/2019 Inactive clonazepam 1 mg tablet RxNorm: 569747 1 Tablet(s) PO QAM 02/25/2018 0 04/25/2018 Inactive tamsulosin 0.4 mg capsule RxNorm: 048135 1 Capsule(s) PO QD 018 03/13/2018 Inactive tamsulosin 0.4 mg capsule RxNorm: 701543 1 Capsule(s) PO QD 018 02/03/2018 Inactive tamsulosin 0.4 mg capsule RxNorm: 867762 1 Capsule(s) PO QD 018 02/12/2018 Inactive Ambien 5 mg tablet RxNorm: 035798 Tablet(s) TAKE 1 TAB LET BY MOUTH EVERY NIGHT AT BEDTIME 01/24/2018 08/05/2018 Inactive primidone 50 mg tablet RxNorm: 823283 Tablet(s) TAKE 2 TABLETS BY MOUTH EVERY NIGHT AT BEDTIME 01/18/2018 05/16/2018 Inactive cyclobenzaprine 10 mg tablet RxNorm: 099410 1 Tablet(s) PO TID as needed for muscle spasm 01/11/2018 02/09/2018 Inactive [SAVINGS FOR NON -COVERED DRUGS -- BIN:091928, PCN: ASPROD1, Group: XXXXX, ID# [id number], Questions: . THIS IS NOT INSURANCE.] clonazepam 1 mg tablet RxNorm: 837827 1 Tablet(s) PO QAM 12/24/2017 0 02/21/2018 Inactive prednisone 20 mg tablet RxNorm: 696678 1 Tablet(s) PO QD 11/06/2017 0 11/10/2017 Inactive EpiPen 2-Jose 0.3 mg/0.3 mL injection, auto-injector RxNorm: 126980 1 Unit Dose IM as needed 11/06/2017 09/24/2019 Inactive ProAir HFA 90 mcg/actuation aerosol inhaler RxNorm: 842614 2 Puff(s) INH Q4H as needed 10/30/2017 03/17/2018 Inactive primidone 50 mg tablet RxNorm: 907711 TAKE 2 TABLETS BY MOUTH EVERY NIGHT AT BEDTIME 10/15/2017 01/17/2018 Inactive Plavix 75 mg tablet RxNorm: 881632 1 Tablet(s) PO QD 10/01/201703/29 Inactive [SAVINGS FOR NON-COVERED DRUGS -- BIN:00 3585, PCN: ASPROD1, Group: XXXXX, ID# [id number], Questions: . THIS IS NOT INSURANCE.] clonazepam 1 mg tablet RxNorm: 863272 1 Tablet(s) PO QAM 09/19/2017 0 12/16/2017 Inactive primidone 50 mg tablet RxNorm: 247963 2 Tablet(s) PO QHS 08/29/2017 0 01/18/2018 Inactive oxycodone-acetaminophen 7.5 mg-325 mg tablet RxNorm: 6999311 1-2 Tablet(s) PO TID as needed 08/22/2017 09/19/2017 Inactive pravastatin 20 mg tablet RxNorm: 086995 1 Tablet(s) PO QD 08/21/2017 03/21/2018 Inactive carvedilol 3.125 mg tablet RxNorm: 315334 1 Tablet(s) P O BID to replace 6.25mg dose 08/21/2017 09/02/2017 Inactive primidone 50 mg tablet RxNorm: 902817 TAKE 2 TABLETS BY MOUTH EVERY NIGHT AT BEDTIME 06/18/2017 08/28/2017 Inactive clonazepam 1 mg tablet RxNorm: 814736 1 Tablet(s) PO QAM 06/04/2017 1 11/02/2016 Inactive Plavix 75 mg tablet RxNorm: 421794 1 Tablet(s) PO QD 04/10/201710/01 Inactive [SAVINGS FOR NON-COVERED DRUGS -- BIN:00 3585, PCN: ASPROD1, Group: XXXXX, ID# [id number], Questions: . THIS IS NOT INSURANCE.] pravastatin 20 mg tablet RxNorm: 096860 1 Tablet(s) PO QD 02/26/2017 08/24/2017 Inactive carvedilol 3.125 mg tablet RxNorm: 299367 1 Tablet(s) P O BID to replace 6.25mg dose 02/26/2017 08/21/2017 Inactive Ultram 50 mg tablet RxNorm: 774641 TAKE 1 TO 2 TABLETS BY MOUTH THREE TIMES DAILY NEEDED FOR PAIN 02/26/2017 03/07/2017 Inactive pravastatin 20 mg tablet RxNorm: 738565 1 Tablet(s) PO QD 02/26/2017 08/21/2017 Inactive carvedilol 3.125 mg tablet RxNorm: 813108 1 Tablet(s) P O BID to replace 6.25mg dose 02/26/2017 08/20/2017 Inactive clonazepam 0.5 mg tablet RxNorm: 312062 1 Tablet(s) PO QAM 02/14/20 17 02/13/2017 Inactive primidone 50 mg tablet RxNorm: 148950 1 Tablet(s) PO QHS 02/13/2017 0 05/01/2017 Inactive clonazepam 1 mg tablet RxNorm: 967974 1 Tablet(s) PO QAM 02/13/2017 0 05/13/2017 Inactive primidone 50 mg tablet RxNorm: 987578 1/2 Tablet(s) PO QD for 7 days then increase to 1 tablet at bedtime 01/09/2017 02/12/2017 Inactive pravastatin 20 mg tablet RxNorm: 167162 Tablet(s) 1 TABLET(S) PO QD 11/29/2016 02/25/2017 Inactive clonazepam 1 mg tablet RxNorm: 924677 1 Tablet(s) PO BID replac es 0.5mg dose 11/23/2016 01/08/2017 Inactive pravastatin 20 mg tablet RxNorm: 946117 1 TABLET(S) PO QD 11/17/2016 11/28/2016 Inactive Ambien 5 mg tablet RxNorm: 183820 TAKE 1 TABLET BY MOUTH EVERY NIGHT AT BEDTIME 11/17/2016 12/14/2016 Inactive clonazepam 0.5 mg tablet RxNorm: 190355 TAKE 1 TABLET BY MOUTH TWICE DAILY 11/17/2016 11/22/2016 Inactive Plavix 75 mg tablet RxNorm: 367370 1 Tablet(s) PO QD 11/06/201604/09 Inactive [SAVINGS FOR NON-COVERED DRUGS -- BIN:00 3585, PCN: ASPROD1, Group: XXXXX, ID# [id number], Questions: . THIS IS NOT INSURANCE.] Plavix 75 mg tablet RxNorm: 401712 1 Tablet(s) PO QD 08/28/201611/05 Inactive [SAVINGS FOR NON-COVERED DRUGS -- BIN: 3585, PCN: ASPROD1, Group: XXXXX, ID# [id number], Questions: . THIS IS NOT INSURANCE.] Lidoderm 5 % topical patch RxNorm: 1638797 Application T OP 2 patches for 12hrs then off for 12hrs 08/28/2016 08/27/2016 Inactive clonazepam 0.5 mg tablet RxNorm: 524664 1 Tablet(s) PO BID 08/07/20 16 11/22/2016 Inactive pravastatin 20 mg tablet RxNorm: 737878 1 Tablet(s) PO QD 08/07/2016 11/04/2016 Inactive cyclobenzaprine 10 mg tablet RxNorm: 886650 1 Tablet(s) PO TID as needed for muscle spasm 08/07/2016 09/05/2016 Inactive [SAVINGS FOR NON -COVERED DRUGS -- BIN:766807, PCN: ASPROD1, Group: XXXXX, ID# [id number], Questions: . THIS IS NOT INSURANCE.] Plavix 75 mg tablet RxNorm: 629279 1 Tablet(s) PO QD 08/07/201608/27 Inactive [SAVINGS FOR NON-COVERED DRUGS -- BIN:00 3585, PCN: ASPROD1, Group: XXXXX, ID# [id number], Questions: . THIS IS NOT INSURANCE.] carvedilol 3.125 mg tablet RxNorm: 298300 1 Tablet(s) P O BID to replace 6.25mg dose 08/07/2016 02/02/2017 Inactive clonazepam 0.5 mg tablet RxNorm: 845409 1 Tablet(s) PO BID 07/04/2008/07/2016 Inactive Plavix 75 mg tablet RxNorm: 833148 1 TABLET(S) PO QD 06/20/201608/06 Inactive [SAVINGS FOR NON-COVERED DRUGS -- BIN:00 3585, PCN: ASPROD1, Group: XXXXX, ID# [id number], Questions: . THIS IS NOT INSURANCE.] clonazepam 0.5 mg tablet RxNorm: 970555 1 Tablet(s) PO BID 06/09/20 16 07/03/2016 Inactive pravastatin 20 mg tablet RxNorm: 198955 1 Tablet(s) PO QD 05/23/2016 08/06/2016 Inactive pravastatin 20 mg tablet RxNorm: 404110 1 Tablet(s) PO QD 05/23/2016 05/22/2016 Inactive carvedilol 3.125 mg tablet RxNorm: 097347 1 Tablet(s) P O BID to replace 6.25mg dose 05/10/2016 08/06/2016 Inactive carvedilol 3.125 mg tablet RxNorm: 257574 1 Tablet(s) P O BID to replace 6.25mg dose 05/10/2016 05/09/2016 Inactive clonazepam 0.5 mg tablet RxNorm: 710086 1 Tablet(s) PO BID 05/10/20 16 06/08/2016 Inactive carvedilol 6.25 mg tablet RxNorm: 494727 1 Tablet(s) PO QD 05/10/20 16 05/10/2016 Inactive simvastatin 40 mg tablet RxNorm: 164858 1 TABLET(S) PO QD 04/10/2016 05/09/2016 Inactive Medrol (Jose) 4 mg tablets in a dose pack RxNorm: 093919 Tablet(s) PO As Directed 01/13/2016 05/09/2016 Inactive cyclobenzaprine 10 mg tablet RxNorm: 529596 1 TABLET(S) PO TID NEEDED FOR SPASM 01/11/2016 03/10/2016 Inactive [SAVINGS FOR NON -COVERED DRUGS -- BIN:630896, PCN: ASPROD1, Group: XXXXX, ID# [id number], Questions: . THIS IS NOT INSURANCE.] Plavix 75 mg tablet RxNorm: 295305 1 Tablet(s) PO QD 12/30/201506/19 Inactive [SAVINGS FOR NON-COVERED DRUGS -- BIN: 3585, PCN: ASPROD1, Group: XXXXX, ID# [id number], Questions: . THIS IS NOT INSURANCE.] Ambien 5 mg tablet RxNorm: 478947 TAKE 1 TABLET BY MOUTH EVERY DAY AT BEDTIME 11/15/2015 11/17/2016 Inactive simvastatin 40 mg tablet RxNorm: 922395 1 Tablet(s) PO QD 10/11/2015 01/12/2019 Inactive simvastatin 40 mg tablet RxNorm: 208408 1 Tablet(s) PO QD 10/08/2015 10/10/2015 Inactive Ambien 5 mg tablet RxNorm: 058836 TAKE 1 TABLET BY MOUTH EVERY NIGHT AT BEDTIME 07/27/2015 11/15/2015 Inactive Plavix 75 mg tablet RxNorm: 513952 1 Tablet(s) PO QD 06/28/201512/29 Inactive [SAVINGS FOR NON-COVERED DRUGS -- BIN: 3585, PCN: ASPROD1, Group: XXXXX, ID# [id number], Questions: . THIS IS NOT INSURANCE.] Coreg 6.25 mg tablet RxNorm: 447792 1 TABLET(S) PO BID 04/19/2015 Inactive [SAVINGS FOR NON-COVERED DRUGS -- BIN:00 3585, PCN: ASPROD1, Group: XXXXX, ID# [id number], Questions: . THIS IS NOT INSURANCE.] simvastatin 40 mg tablet RxNorm: 495996 1 Tablet(s) PO QD 04/05/2015 04/04/2015 Inactive simvastatin 40 mg tablet RxNorm: 353775 1 Tablet(s) PO QD 04/05/2015 10/11/2015 Inactive Plavix 75 mg tablet RxNorm: 423822 1 TABLET(S) PO QD 03/22/201504/20 Inactive [SAVINGS FOR NON-COVERED DRUGS -- BIN:00 3585, PCN: ASPROD1, Group: XXXXX, ID# [id number], Questions: . THIS IS NOT INSURANCE.] Plavix 75 mg tablet RxNorm: 689130 1 Tablet(s) PO QD 03/22/201506/28 Inactive [SAVINGS FOR NON-COVERED DRUGS -- BIN:00 3585, PCN: ASPROD1, Group: XXXXX, ID# [id number], Questions: . THIS IS NOT INSURANCE.] Ambien 5 mg tablet RxNorm: 505010 1 Tablet(s) PO QHS 12/17/201407/28 Inactive [SAVINGS FOR NON-COVERED DRUGS -- BIN:00 3585, PCN: ASPROD1, Group: XXXXX, ID# [id number], Questions: . THIS IS NOT INSURANCE.] Coreg 6.25 mg tablet RxNorm: 916843 1 Tablet(s) PO BID 12/17/2014 Inactive [SAVINGS FOR NON-COVERED DRUGS -- BIN:00 3585, PCN: ASPROD1, Group: XXXXX, ID# [id number], Questions: . THIS IS NOT INSURANCE.] Plavix 75 mg tablet RxNorm: 221460 1 Tablet(s) PO QD 12/17/201403/16 Inactive [SAVINGS FOR NON-COVERED DRUGS -- BIN:00 3585, PCN: ASPROD1, Group: XXXXX, ID# [id number], Questions: . THIS IS NOT INSURANCE.] cyclobenzaprine 10 mg tablet RxNorm: 497344 1 Tablet(s) PO TID as needed for spasm 12/17/2014 03/16/2015 Inactive [SAVINGS FOR NON -COVERED DRUGS -- BIN:951710, PCN: ASPROD1, Group: XXXXX, ID# [id number], Questions: . THIS IS NOT INSURANCE.] Coreg 6.25 mg tablet RxNorm: 134514 1 Tablet(s) PO BID 10/21/201409/2014 Inactive [SAVINGS FOR NON-COVERED DRUGS -- BIN:00 3585, PCN: ASPROD1, Group: XXXXX, ID# [id number], Questions: . THIS IS NOT INSURANCE.] Plavix 75 mg tablet RxNorm: 518177 1 Tablet(s) PO QD 10/21/201412/16 Inactive [SAVINGS FOR NON-COVERED DRUGS -- BIN:00 3585, PCN: ASPROD1, Group: XXXXX, ID# XXXXXXX, Questions: . THIS IS NOT INSURANCE.] Plavix 75 mg tablet RxNorm: 188125 1 Tablet(s) PO QD Ne eds routine check up--last seen March 2012 09/21/2014 10/20/2014 Inactive [SAVINGS FOR UNINSURED PATIENTS -- BIN:130784, PCN: ASPROD1, Group: AME08, ID# [id number], Process claim through [employer], for questions: . THIS IS NOT INSURANCE.] Ambien 5 mg tablet RxNorm: 729589 1 Tablet(s) PO [facility] 09/21/201412/16 Inactive [SAVINGS FOR UNINSURED PATIENTS -- BIN:0 33255, PCN: ASPROD1, Group: AME08, ID# [id number], Process claim through [employer], for questions: . THIS IS NOT INSURANCE.] Coreg 6.25 mg tablet RxNorm: 663514 1 Tablet(s) PO BID 09/21/201411/2014 Inactive [SAVINGS FOR UNINSURED PATIENTS -- BIN:0 49969, PCN: ASPROD1, Group: AME08, ID# [id number], Process claim through [employer], for questions: . THIS IS NOT INSURANCE.] Plavix 75 mg tablet RxNorm: 238422 1 Tablet(s) PO QD Ne eds routine check up--last seen March 2012 08/04/2014 09/02/2014 Inactive [SAVINGS FOR UNINSURED PATIENTS -- BIN:850267, PCN: ASPROD1, Group: AME08, ID# [id number], Process claim through [employer]Fetch, for questions: . THIS IS NOT INSURANCE.] Plavix 75 mg tablet RxNorm: 930568 1 Tablet(s) PO QD Ne eds routine check up--last seen March 2012 08/03/2014 08/03/2014 Inactive Protonix 40 mg tablet,delayed release RxNorm: 416842 1 Tablet(s ) PO QD 06/08/2014 02/17/2019 Inactive [SAVINGS FOR UNINSUR ED PATIENTS -- BIN:751220, PCN: ASPROD1, Group: AME08, ID# [id number], Process claim through [employer], for questions: . THIS IS NOT INSURANCE.] hydrocodone 10 mg-acetaminophen 325 mg tablet RxNorm: 036689 1 Tablet(s) PO BID as needed for pain 02/18/2014 03/31/2015 Inactive Coreg 6.25 mg tablet RxNorm: 594040 1 Tablet(s) PO BID 02/02/2014 Inactive Protonix 40 mg granules delayed-release packet RxNorm: 730503 1 Tablet(s) PO QD 01/13/2014 06/08/2014 Inactive Plavix 75 mg tablet RxNorm: 668498 1 Tablet(s) PO QD Ne eds routine check up--last seen March 2012 01/13/2014 08/02/2014 Inactive Plavix 75 mg tablet RxNorm: 759194 1 Tablet(s) PO QD Ne eds routine check up--last seen March 2012 12/09/2013 01/07/2014 Inactive Coreg 6.25 mg tablet RxNorm: 682587 1 Tablet(s) PO BID 12/09/2013 Inactive Cymbalta 60 mg capsule,delayed release RxNorm: 390705 1 Capsule (s) PO QD 10/31/2013 01/12/2014 Inactive Coreg 6.25 mg tablet RxNorm: 658390 1 Tablet(s) PO BID 10/31/2013 Inactive Plavix 75 mg tablet RxNorm: 996592 1 Tablet(s) PO QD Ne eds routine check up--last seen March 2012 10/31/2013 11/29/2013 Inactive Coreg 6.25 mg tablet RxNorm: 836317 1 Tablet(s) PO BID 10/31/2013 Inactive atorvastatin 40 mg tablet RxNorm: 821084 1 Tablet(s) PO QD 10/31/19 14 03/31/2015 Inactive Plavix 75 mg tablet RxNorm: 675953 1 Tablet(s) PO QD Ne eds routine check up--last seen March 2012 09/23/2013 10/30/2013 Inactive cyclobenzaprine 10 mg tablet RxNorm: 082875 1 Tablet(s) PO TID as needed for spasm 09/23/2013 No Stop Date Active cyclobenzaprine 10 mg tablet RxNorm: 754293 1 Tablet(s) PO TID as needed for spasm 07/04/2013 09/22/2013 Inactive atorvastatin 40 mg tablet RxNorm: 995782 1 Tablet(s) PO QD 06/23/20 13 10/30/2013 Inactive atorvastatin 40 mg tablet RxNorm: 246740 1 Tablet(s) PO QD 04/22/20 13 06/22/2013 Inactive Nucynta 50 mg tablet RxNorm: 231786 1-2 Tablet(s) PO Q6H as nee ded for pain 01/01/2013 01/12/2014 Inactive Ambien 5 mg tablet RxNorm: 875842 1 Tablet(s) PO QHS 10/16/201201/13 Inactive Plavix 75 mg tablet RxNorm: 164953 1 Tablet(s) PO QD 09/19/201209/13 Inactive Protonix 40 mg tablet,delayed release RxNorm: 773051 1 Tablet(s ) PO QD 09/19/2012 09/18/2012 Inactive simvastatin 40 mg tablet RxNorm: 811759 1 Tablet(s) PO QD 09/19/2012 02/23/2013 Inactive Protonix 40 mg tablet,delayed release RxNorm: 749928 1 Tablet(s ) PO QD 09/19/2012 09/13/2013 Inactive Ultram 50 mg tablet RxNorm: 812246 1-2 Tablet(s) PO QID as need ed for pain 09/19/2012 02/26/2017 Inactive propranolol 80 mg tablet RxNorm: 589781 1 Tablet(s) PO QHS 09/19/19 13 09/18/2012 Inactive Cymbalta 60 mg capsule,delayed release RxNorm: 188435 1 Capsule (s) PO QD 09/19/2012 09/18/2012 Inactive Cymbalta 60 mg capsule,delayed release RxNorm: 824178 1 Capsule (s) PO QD 09/19/2012 03/17/2013 Inactive propranolol 80 mg tablet RxNorm: 393773 1 Tablet(s) PO QHS 09/19/19 13 02/23/2013 Inactive hydrocodone-acetaminophen 10 mg-325 mg tablet RxNorm: 339151 2 1-2 Tablet(s) PO QID 07/25/2012 02/23/2013 Inactive Ambien 10 mg tablet RxNorm: 580473 1 Tablet(s) PO QHS as needed for sleep 07/10/2012 01/27/2013 Inactive propranolol 80 mg tablet RxNorm: 338371 1 Tablet(s) PO QHS 05/13/20 12 09/18/2012 Inactive hydrocodone-acetaminophen 10 mg-325 mg tablet RxNorm: 134744 2 1-2 Tablet(s) PO QID 05/02/2012 No Stop Date Active Restoril 15 mg Cap RxNorm: 852786 1-2 Capsule(s) PO QHS 05/02/2012 Inactive propranolol 80 mg tablet RxNorm: 084803 1 Tablet(s) PO QHS 05/02/20 12 05/12/2012 Inactive Chantix Starting Month Box 0.5 mg (11)-1 mg (42) Tabs in a Dose Pack RxNorm: 892095 Tablet(s) PO As Directed 04/01/2012 01/27/2013 Inactive simvastatin 40 mg tablet RxNorm: 633022 1 Tablet(s) PO QD 03/28/2012 09/18/2012 Inactive simvastatin 40 mg Tab RxNorm: 056597 1 Tablet(s) PO QD 03/22/201207/2012 Inactive Effient 10 mg Tab RxNorm: 767814 1 Tablet(s) PO QD 03/22/2012 012 Inactive Prilosec 40 mg Capsule, delayed release RxNorm: 615499 1 Capsul e(s) PO QD 03/22/2012 09/18/2012 Inactive Prilosec 40 mg Capsule, delayed release RxNorm: 695480 1 Capsul e(s) PO QD 03/19/2012 03/21/2012 Inactive Cymbalta 60 mg capsule,delayed release RxNorm: 369646 1 Capsule (s) PO QD 03/04/2012 08/30/2012 Inactive hydrocodone-acetaminophen 10 mg-325 mg Tab RxNorm: 3301037 1-2 T ablet(s) PO QID 01/23/2012 No Stop Date Active Cymbalta 60 mg Capsule, delayed release RxNorm: 951949 1 Capsul e(s) PO QD 01/23/2012 03/03/2012 Inactive Cipro 500 mg Tab RxNorm: 757790 1 Tablet(s) PO BID 12/20/2011 012 Inactive Cymbalta 60 mg Capsule, delayed release RxNorm: 363529 1 Capsul e(s) PO QD 12/13/2011 01/22/2012 Inactive nortriptyline 75 mg Cap RxNorm: 089450 1 Capsule(s) PO QHS 11/29/1904/02/2012 Inactive Cymbalta 60 mg Cap RxNorm: 505986 1 Capsule(s) PO QD 10/24/201112/11 Inactive propranolol 80 mg Tab RxNorm: 058233 1 Tablet(s) PO QHS 10/24/2011 Inactive hydrocodone-acetaminophen 10 mg-325 mg Tab RxNorm: 3550399 1-2 T ablet(s) PO QID 09/29/2011 No Stop Date Active hydrocodone-acetaminophen 10 mg-325 mg Tab RxNorm: 9515213 1-2 T ablet(s) PO QID 07/25/2011 No Stop Date Active hydrocodone-acetaminophen 10 mg-325 mg Tab RxNorm: 4972242 1-2 T ablet(s) PO QID 02/14/2011 No Stop Date Active Prilosec 40 mg Cap RxNorm: 217737 1 Capsule(s) PO 01/03/2011 04/28/20 19 Inactive nortriptyline 75 mg Cap RxNorm: 173432 1 Capsule(s) PO QHS 01/04/20 11 07/01/2011 Inactive Neurontin 600 mg Tab RxNorm: 821056 1 Tablet(s) PO QHS 12/08/201011/2011 Inactive hydrocodone-acetaminophen 5 mg-500 mg Tab RxNorm: 667536 2 Tablet(s) PO Q4-6H prn 10/20/2010 01/08/2011 Inactive Diltzac ER 240 mg Cap RxNorm: 476703 1 Capsule(s) PO QD 07/14/2010 Inactive Nortriptyline 75 mg Cap RxNorm: 185886 1 Capsule(s) PO QHS 05/09/20 10 01/12/2019 Inactive Neurontin 600 mg Tab RxNorm: 479765 1 Tablet(s) PO QD 03/17/201012/17 Inactive Nortriptyline 75 mg Cap RxNorm: 943778 1 Capsule(s) PO 01/12/2010 Inactive Nortriptyline 50 mg Cap RxNorm: 734060 1 Capsule(s) PO QHS 01/13/20 10 01/11/2010 Inactive Diltzac ER 240 mg Cap RxNorm: 206078 1 Capsule(s) PO QD 12/06/2009 Inactive aspirin 81 mg Tab RxNorm: 560566 1 Tablet(s) PO QD No Start Date Active Vitamin D3 2,000 unit tablet RxNorm: 898922 1 Tablet(s) PO QD No Star t Date Active Lyrica 75 mg capsule RxNorm: 959897 1 Capsule(s) PO QHS No Start Date Active htyxorbqm-hyizlhtvw-ypjbcr complex no.233 oral RxNorm: oral No Start Date Active primidone 50 mg tablet RxNorm: 801734 2 Tablet(s) PO BID No Start Date Active Prilosec 40 mg Capsule, delayed release RxNorm: 719045 1 Capsul e(s) PO QD No Start Date 03/18/2012 Inactive Prilosec 20 mg Cap RxNorm: 467241 1 Capsule(s) PO QHS No Start Date 0 01/02/2011 Inactive primidone 50 mg tablet RxNorm: 664811 1/2 Tablet(s) PO QHS for 1week then go full tab if needed No Start Date 05/01/2017 Inactive ProAir HFA 90 mcg/actuation aerosol inhaler RxNorm: 625539 2 Puff(s) INH Q4H as needed No Start Date 10/29/2017 Inactive clonazepam 0.5 mg tablet RxNorm: 427449 1/2 Tablet(s) PO BID No Sta rt Date 02/12/2017 Inactive Pepcid AC 10 mg Tab RxNorm: 390968 1 Tablet(s) PO QAM No Start Date 0 02/19/2011 Inactive Coreg Oral RxNorm: Oral No Start Date 01/12/2014 Inactive primidone 50 mg tablet RxNorm: 105603 1/2 Tablet(s) PO QD for 7 days then increase to 1 tablet at bedtime No Start Date 01/08/2017 Inactive Medrol (Jose) 4 mg tablets in a dose pack RxNorm: 298752 Tablet(s) PO As Directed No Start Date 01/12/2016 Inactive Plavix 75 mg tablet RxNorm: 788354 1 Tablet(s) PO QD No Start Date Inactive cyclobenzaprine 10 mg tablet RxNorm: 698966 1 Tablet(s) PO TID as needed for spasm No Start Date 07/03/2013 Inactive Bevespi Aerosphere 9 mcg-4.8 mcg HFA aerosol inhaler RxNorm: 5941014 2 Puff(s) INH BID No Start Date 02/18/2019 Inactive tramadol 50 mg tablet RxNorm: 093067 1-2 Tablet(s) PO TID as ne eded for pain No Start Date 01/12/2019 Inactive clonazepam 1 mg tablet RxNorm: 173738 1 Tablet(s) PO QAM No Start D ate 09/18/2018 Inactive hydrocodone-acetaminophen 5 mg-500 mg Tab RxNorm: 577496 2 Tablet(s) PO Q4-6H prn No Start Date 10/19/2010 Inactive lisinopril 20 mg Tab RxNorm: 344545 1/2 Tablet(s) PO QD No Start Da te 03/12/2011 Inactive Protonix 40 mg tablet,delayed release RxNorm: 855496 1 Tablet(s ) PO QD No Start Date 06/07/2014 Inactive Lipitor Oral RxNorm: Oral No Start Date 01/12/2014 Inactive primidone 50 mg tablet RxNorm: 885437 2 Tablet(s) PO QAM and 1 tablet at HS No Start Date 02/17/2019 Inactive hydrocodone-acetaminophen 10 mg-325 mg Tab RxNorm: 3017785 1-2 T ablet(s) PO QID No Start Date 02/13/2011 Inactive Ultram 50 mg tablet RxNorm: 961649 1-2 Tablet(s) PO QID as need ed for pain No Start Date 09/18/2012 Inactive Effient 10 mg Tab RxNorm: 006954 1 Tablet(s) PO QD No Start Date 01/2012 Inactive Bevespi Aerosphere 9 mcg-4.8 mcg HFA aerosol inhaler RxNorm: 4397124 2 Puff(s) INH BID No Start Date 10/29/2017 Inactive Neurontin Oral RxNorm: Oral No Start Date 01/12/2010 Inactive primidone 50 mg tablet RxNorm: 965350 1 Tablet(s) PO QD No Start Da te 01/12/2019 Inactive Chantix Starting Month Box 0.5 mg (11)-1 mg (42) Tabs in a Dose Pack RxNorm: 302618 Tablet(s) PO No Start Date 03/31/2012 Inactive atenolol 25 mg Tab RxNorm: 225131 1 Tablet(s) PO QD No Start Date 02/2012 Inactive Neurontin 600 mg Tab RxNorm: 772928 1 Tablet(s) PO QD No Start Date 0 03/16/2010 Inactive Nucynta 50 mg tablet RxNorm: 113503 1-2 Tablet(s) PO Q6H as nee ded for pain No Start Date 12/31/2012 Inactive simvastatin 40 mg Tab RxNorm: 228315 1 Tablet(s) PO QD No Start Date 03/21/2012 Inactive Medication Administered No Medication Administered data Immunizations Vaccine Codes Date Status Influenza CVX: 135 07/04/2017 Complete Results Observation Observation Code Item Item Code Result Date S [facility] Location COMPLETE BLOOD COUNT [id number] WBC 4.9 10e9/L 09/04/20 18 Unknown COMPLETE BLOOD COUNT [id number] RBC 4.42 10e12/L 2017 Unknown COMPLETE BLOOD COUNT 1117582 HEMOGLOBIN 13.4 g/dL 09/04/20 18 Unknown COMPLETE BLOOD COUNT 5735939 HEMATOCRIT 40.5 % 09/04/20 18 Unknown COMPLETE BLOOD COUNT 2325241 MCV 91.6 fL 8 Unknown COMPLETE BLOOD COUNT 3204379 MCH 30.3 pg 8 Unknown COMPLETE BLOOD COUNT 9335764 MCHC 33.1 g/dL 8 Unknown COMPLETE BLOOD COUNT 3661626 PLATELET COUNT 224 10e9/L Unknown COMPLETE BLOOD COUNT 4051951 Mean Plt Volume 9.9 fL Unknown COMPLETE BLOOD COUNT 3126473 Neut Auto 60.8 % 8 Unknown COMPLETE BLOOD COUNT 2910724 Lymph Auto 26.8 % 09/04/20 18 Unknown COMPLETE BLOOD COUNT 7709707 [place] Auto 10.4 % 8 Unknown COMPLETE BLOOD COUNT 7136017 RDW 12.8 % 8 Unknown COMPLETE BLOOD COUNT 6787361 Eos Auto 1.6 % 8 Unknown COMPLETE BLOOD COUNT 4803714 Baso Auto 0.4 % 8 Unknown COMPLETE BLOOD COUNT 1354792 Neutrophil Abs 2.98 10e9/L Unknown COMPLETE BLOOD COUNT 2175296 Lymphocyte Abs 1.31 10e9/L Unknown COMPLETE BLOOD COUNT 2264011 Monocyte Abs 0.51 10e9/L 08/17 Unknown COMPLETE BLOOD COUNT 9613522 Eosinophil Abs 0.08 10e9/L Unknown COMPLETE BLOOD COUNT 5089005 RDW-SD 41.6 fL 8 Unknown COMPLETE BLOOD COUNT [id number] Basophil Abs 0.02 10e9/L 08/17 Unknown COMPREHENSIVE METABOLIC 96909 AST 16 U/L 2017 Unknown COMPREHENSIVE METABOLIC 96956 ALT 8 U/L 2017 Unknown COMPREHENSIVE METABOLIC 13884 BUN 12 mg/dL 2017 Unknown COMPREHENSIVE METABOLIC 92881 ALBUMIN 4.4 g/dL 2017 Unknown COMPREHENSIVE METABOLIC 42597 CHLORIDE 107 mmol/L 09/04 Unknown COMPREHENSIVE METABOLIC 64552 Bili Total 1.0 mg/dL 09/04 Unknown COMPREHENSIVE METABOLIC 85594 ALK PHOS 58 U/L 2017 Unknown COMPREHENSIVE METABOLIC 81779 SODIUM 142 mmol/L 09/04 Unknown COMPREHENSIVE METABOLIC 58276 CREATININE 0.97 mg/dL 08/17 Unknown COMPREHENSIVE METABOLIC 42894 CALCIUM 9.2 mg/dL 2017 Unknown COMPREHENSIVE METABOLIC 96592 POTASSIUM 4.6 mmol/L 09/04 Unknown COMPREHENSIVE METABOLIC 72671 Total Protein 6.5 g/dL Unknown COMPREHENSIVE METABOLIC 39300 Glucose 96 mg/dL 2017 Unknown COMPREHENSIVE METABOLIC 17927 Bicarbonate 29 mmol/L 08/17 Unknown COMPREHENSIVE METABOLIC 06139 AGAP 6 mmol/L 2017 Unknown LIPID GROUP 40258 Cholesterol 182 mg/dL 09/04/2018 Unkno wn LIPID GROUP 26046 Triglyceride 84 mg/dL 09/04/2018 Unkn own LIPID GROUP 49344 HDL CHOLESTEROL 76 mg/dL 09/04/2018 U nknown LIPID GROUP 24513 Chol/HDL Ratio 2.39 ratio 09/04/2018 U nknown LIPID GROUP 00650 NON-HDL Chol 106 mg/dL 09/04/2018 Unkn own LIPID GROUP 75715 LDL Cholesterol 89 mg/dL 09/04/2018 U nknown GFR CALC 1478252 GFR Non Afr Amr >60 mL/min 09/04/2018 Un known GFR CALC 3081419 GFR Afr Amr >60 mL/min 09/04/2018 Unknow n THYROID STIMULATING HORMONE 81960 TSH 0.713 uIU/mL 09/04/2018 Unknown PSA EQUIMOLAR BARBIE 72898 PSA Total 0.66 ng/mL 8 Unknown A FOOD C P [id number] [place] Cl Class 0 11/17/2017 Unknown A FOOD C P [id number] [place] Ct <0.35 kU/L 11/17/2017 Unknow n A FOOD C P [id number] [place] Cl Class 0 11/17/2017 Unkn own A FOOD C P [id number] [place] [facility] <0.35 kU/L 11/17/2017 Unk nown A FOOD C P [id number] Egg White Cl Class 0 11/17/2017 Unkno wn A FOOD C P 3925735 Egg White Ct <0.35 kU/L 11/17/2017 Unkn own A FOOD C P 1563088 Egg Yolk Cl Class 0 11/17/2017 Unknow n A FOOD C P 9099903 Egg Yolk Ct <0.35 kU/L 11/17/2017 Unkno wn A FOOD C P 9272764 Cow Milk Cl Class 0 11/17/2017 Unknow n A FOOD C P 8891481 Cow Milk Ct <0.35 kU/L 11/17/2017 Unkno wn A FOOD C P 0545187 Peanut Cl Class 0 11/17/2017 Unknown A FOOD C P 1845394 Peanut Ct <0.35 kU/L 11/17/2017 Unknown A FOOD C P 4022111 Sh[place] Cl Class 0 11/17/2017 Unknown A FOOD C P 5401723 [place] Ct <0.35 kU/L 11/17/2017 Unknown A FOOD C P 9132373 [place] Cl Class 0 11/17/2017 Unknown A FOOD C P [id number] [place] Ct <0.35 kU/L 11/17/2017 Unknow n A FOOD C P 9345811 [place] Cl Class 0 11/17/2017 Unknown A FOOD C P 3872394 Wheat Ct <0.35 kU/L 11/17/2017 Unknown A FOOD C P 7225849 Potato Cl Class 0 11/17/2017 Unknown A FOOD C P 4499366 Potato Ct <0.35 kU/L 11/17/2017 Unknown A FOOD C P 0083489 Beef Cl Class 2 11/17/2017 Unknown A FOOD C P 5396398 Beef Ct 0.88 kU/L 11/17/2017 Unknown A FOOD C P 8251410 [place] Cl Class 0 11/17/2017 Unknown A FOOD C P 9387069 [place] Ct <0.35 kU/L 11/17/2017 Unknown A FOOD C P 4517950 P[place] Cl Class 0 11/17/2017 Unknown A FOOD C P [id number] [place] Ct <0.35 kU/L 11/17/2017 Unknown A FOOD C P 5288731 [place] Cl Class 0 11/17/2017 Unknown A FOOD C P 8851873 [place] Ct <0.35 kU/L 11/17/2017 Unknown A FOOD C P 9727907 [place] Cl Class 0 11/17/2017 Unkn own A FOOD C P 6360754 [place] Ct <0.35 kU/L 11/17/2017 Unk nown A FOOD C P 9619745 [place] Cl Class 0 11/17/2017 Unknown A FOOD C P 7687862 [place] Ct <0.35 kU/L 11/17/2017 Unknown A FOOD C P [id number] [place] Cl Class 0 11/17/2017 Unknown A FOOD C P 9903603 [place] Ct <0.35 kU/L 11/17/2017 Unknown A FOOD C P [id number] [place] Class 0 11/17/2017 Unknown A FOOD C P [id number] [place] <0.35 kU/L 11/17/2017 Unknown A FOOD C P 1393862 [place] Cl Class 0 11/17/2017 Unknown A FOOD C P 8048361 [place] Ct <0.35 kU/L 11/17/2017 Unknown A FOOD C P 0629588 Oat Cl Class 0 11/17/2017 Unknown A FOOD C P 2338295 Oat Ct <0.35 kU/L 11/17/2017 Unknown A FOOD C P 0663748 [place] Cl Class 0 11/17/2017 Unknown A FOOD C P 9214893 [place] [facility] <0.35 kU/L 11/17/2017 Unknown A FOOD C P 2668079 [place] CL Class 0 11/17/2017 Un known A FOOD C P 8081561 [place] Ct <0.35 kU/L 11/17/2017 U nknown A FOOD C P 6812068 [place] Cl Class 0 11/17/2017 Unknown A FOOD C P 4562912 [place] Ct <0.35 kU/L 11/17/2017 Unknown A FOOD C P 5421592 [place] Meat Cl Class 0 11/17/2017 Unkn own A FOOD C P 7307271 [place] Ct <0.35 kU/L 11/17/2017 Unk nown A NUTS PNL 3496882 [place] Cl Class 0 11/17/2017 Unknown A NUTS PNL 2795994 [place] Ct <0.35 kU/L 11/17/2017 Unknown A NUTS PNL 5336234 [place] Meat Cl Class 0 11/17/2017 Unk nown A NUTS PNL 0921980 [place] [facility] <0.35 kU/L 11/17/2017 Un known A NUTS PNL 0068127 [place] Cl Class 0 11/17/2017 Unkn own A NUTS PNL 2242831 [place] Ct <0.35 kU/L 11/17/2017 Unk nown A NUTS PNL 7516664 [place] Cl Class 0 11/17/2017 Unknown A NUTS PNL 6798118 [place] Ct <0.35 kU/L 11/17/2017 Unknown A NUTS PNL 0245460 [place] Cl Class 0 11/17/2017 Unknow n A NUTS PNL 0038259 [place] Ct <0.35 kU/L 11/17/2017 Unkno wn A NUTS PNL 8215435 [place] Cl Class 0 11/17/2017 Unkno wn A NUTS PNL 5158862 [place] Ct <0.35 kU/L 11/17/2017 Unkn own A NUTS PNL 5278093 [place] Cl Class 0 11/17/2017 Unknown A NUTS PNL 3366163 [place] Ct <0.35 kU/L 11/17/2017 Unknown A NUTS PNL 8369128 [place] Cl Class 0 11/17/2017 Unkno wn A NUTS PNL 4517430 [place] Ct <0.35 kU/L 11/17/2017 Unkn own A NUTS PNL 3968111 Allergen Interp See Note 11/17/2017 Un known A FRT/VG P [id number] [place] Cl Class 0 11/17/2017 Unkn own A FRT/VG P [id number] [place] [facility] <0.35 kU/L 11/17/2017 Unk nown A FRT/VG P [id number] [place] Cl Class 0 11/17/2017 Unknown A FRT/VG P [id number] [place] Ct <0.35 kU/L 11/17/2017 Unknown A FRT/VG P 3421519 [place] Cl Class 0 11/17/2017 Unkn own A FRT/VG P 9870244 [place] Ct <0.35 kU/L 11/17/2017 Unk nown A FRT/VG P [id number] [place] Cl Class 0 11/17/2017 Unknown A FRT/VG P 5761386 [place] Ct <0.35 kU/L 11/17/2017 Unknown A FRT/VG P 6728145 [place] Cl Class 0 11/17/2017 Unknown A FRT/VG P 7452102 [place] [facility] <0.35 kU/L 11/17/2017 Unknown A FRT/VG P 4549463 [place] Cl Class 1 11/17/2017 Unknown A FRT/VG P 2041083 [place] Ct 0.48 kU/L 11/17/2017 Unknown A FRT/VG P 0671847 [place] Cl Class 0 11/17/2017 Unk nown A FRT/VG P 0131736 [place] Ct <0.35 kU/L 11/17/2017 Un known A FRT/VG P 8807669 [place] Cl Class 0 11/17/2017 Unk nown A FRT/VG P 5945852 [place] Ct <0.35 kU/L 11/17/2017 Un known A FRT/VG P 2136139 [place] Cl Class 0 11/17/2017 Unknown A FRT/VG P 8106802 [place] Ct <0.35 kU/L 11/17/2017 Unknown A FRT/VG P 5011117 [place] Cl Class 0 11/17/2017 Unknown A FRT/VG P 8663746 [place] Ct <0.35 kU/L 11/17/2017 Unknown A FRT/VG P 0919303 [place] Cl Class 0 11/17/2017 Unkn own A FRT/VG P 3996875 [place] Ct <0.35 kU/L 11/17/2017 Unk nown A FRT/VG P 7501873 [place] Cl Class 0 11/17/2017 Unkn own A FRT/VG P 3550136 Swt [place] Ct <0.35 kU/L 11/17/2017 Unk nown THYROID STIMULATING HORMONE 89367 TSH 1.371 uIU/mL 09/03/2017 Unknown FREE T4 35285 T4 Free 1.26 ng/dL 09/03/2017 Unknown ASSAY TRIIODOTHYRONINE (T3) 61157 T3 Total 0.9 ng/mL Unknown COMPLETE BLOOD COUNT 0604461 WBC 5.9 10e9/L 07/31/20 17 Unknown COMPLETE BLOOD COUNT 1007279 RBC 4.64 10e12/L 2016 Unknown COMPLETE BLOOD COUNT 1007994 HEMOGLOBIN 14.2 g/dL 07/31/20 17 Unknown COMPLETE BLOOD COUNT 4402839 HEMATOCRIT 42.1 % 07/31/20 17 Unknown COMPLETE BLOOD COUNT 1786375 MCV 90.7 fL 7 Unknown COMPLETE BLOOD COUNT 0242564 MCH 30.6 pg 7 Unknown COMPLETE BLOOD COUNT 6563515 MCHC 33.7 g/dL 7 Unknown COMPLETE BLOOD COUNT 0565258 PLATELET COUNT 195 10e9/L Unknown COMPLETE BLOOD COUNT 5880927 Mean Plt Volume 10.0 fL Unknown COMPLETE BLOOD COUNT 1050328 Neut Auto 47.5 % 7 Unknown COMPLETE BLOOD COUNT 3866454 Lymph Auto 37.4 % 07/31/20 17 Unknown COMPLETE BLOOD COUNT 9745982 [place] Auto 11.7 % 7 Unknown COMPLETE BLOOD COUNT 8869028 Eos Auto 3.2 % 7 Unknown COMPLETE BLOOD COUNT 7312319 RDW 12.8 % 7 Unknown COMPLETE BLOOD COUNT 0990195 Baso Auto 0.2 % 7 Unknown COMPLETE BLOOD COUNT 9417987 Neutrophil Abs 2.80 10e9/L Unknown COMPLETE BLOOD COUNT 2217096 Lymphocyte Abs 2.21 10e9/L Unknown COMPLETE BLOOD COUNT 8361134 Monocyte Abs 0.69 10e9/L 07/18 Unknown COMPLETE BLOOD COUNT 3060601 Eosinophil Abs 0.19 10e9/L Unknown COMPLETE BLOOD COUNT 2192991 RDW-SD 41.6 fL 7 Unknown COMPLETE BLOOD COUNT 9277365 Basophil Abs 0.01 10e9/L 07/18 Unknown LIPID GROUP 21873 Cholesterol 186 mg/dL 07/31/2017 Unkno wn LIPID GROUP 04831 Triglyceride 129 mg/dL 07/31/2017 Unkn own LIPID GROUP 79487 HDL CHOLESTEROL 79 mg/dL 07/31/2017 U nknown LIPID GROUP 01588 Chol/HDL Ratio 2.35 ratio 07/31/2017 U nknown LIPID GROUP 62909 NON-HDL Chol 107 mg/dL 07/31/2017 Unkn own LIPID GROUP 21890 LDL Cholesterol 81 mg/dL 07/31/2017 U nknown GFR CALC 9858960 GFR Non Afr Amr >60 mL/min 07/31/2017 Un known GFR CALC 2014205 GFR Afr Amr >60 mL/min 07/31/2017 Unknow n COMPREHENSIVE METABOLIC 10571 AST 19 U/L 2016 Unknown COMPREHENSIVE METABOLIC 11278 ALT 12 U/L 2016 Unknown COMPREHENSIVE METABOLIC 80721 BUN 15 mg/dL 2016 Unknown COMPREHENSIVE METABOLIC 62982 ALBUMIN 4.4 g/dL 2016 Unknown COMPREHENSIVE METABOLIC 83236 CHLORIDE 102 mmol/L 07/31 Unknown COMPREHENSIVE METABOLIC 50537 Bili Total 0.9 mg/dL 07/31 Unknown COMPREHENSIVE METABOLIC 48928 ALK PHOS 53 U/L 2016 Unknown COMPREHENSIVE METABOLIC 57659 SODIUM 138 mmol/L 07/31 Unknown COMPREHENSIVE METABOLIC 75019 CREATININE 1.06 mg/dL 07/18 Unknown COMPREHENSIVE METABOLIC 96655 CALCIUM 9.3 mg/dL 2016 Unknown COMPREHENSIVE METABOLIC 36704 POTASSIUM 4.0 mmol/L 07/31 Unknown COMPREHENSIVE METABOLIC 87231 Total Protein 6.8 g/dL Unknown COMPREHENSIVE METABOLIC 67204 Glucose 86 mg/dL 2016 Unknown COMPREHENSIVE METABOLIC 43433 Bicarbonate 28 mmol/L 07/18 Unknown COMPREHENSIVE METABOLIC 43491 AGAP 8 mmol/L 2016 Unknown COMPREHENSIVE METABOLIC 16402 AST 18 U/L 2015 Unknown COMPREHENSIVE METABOLIC 59779 ALT 9 U/L 2015 Unknown COMPREHENSIVE METABOLIC 96663 BUN 11 mg/dL 2015 Unknown COMPREHENSIVE METABOLIC 81081 ALBUMIN 4.2 g/dL 2015 Unknown COMPREHENSIVE METABOLIC 69590 CHLORIDE 104 mmol/L 05/19 Unknown COMPREHENSIVE METABOLIC 37240 Bili Total 1.2 mg/dL 05/19 Unknown COMPREHENSIVE METABOLIC 31467 ALK PHOS 54 U/L 2015 Unknown COMPREHENSIVE METABOLIC 82410 SODIUM 140 mmol/L 05/19 Unknown COMPREHENSIVE METABOLIC 82778 CREATININE 1.03 mg/dL 10/2015 Unknown COMPREHENSIVE METABOLIC 72418 CALCIUM 9.3 mg/dL 2015 Unknown COMPREHENSIVE METABOLIC 83137 POTASSIUM 4.9 mmol/L 05/19 Unknown COMPREHENSIVE METABOLIC 72062 Total Protein 6.7 g/dL Unknown COMPREHENSIVE METABOLIC 83336 Glucose 92 mg/dL 2015 Unknown COMPREHENSIVE METABOLIC 75411 Bicarbonate 28 mmol/L 10/2015 Unknown COMPREHENSIVE METABOLIC 76116 AGAP 8 mmol/L 2015 Unknown THYROID STIMULATING HORMONE 90550 TSH 1.545 uIU/mL 05/19/2016 Unknown GFR CALC 8853938 GFR Non Afr Amr >60 mL/min 05/19/2016 Un known GFR CALC 8790406 GFR Afr Amr >60 mL/min 05/19/2016 Unknow n VITAMIN B 12 12562 VITAMIN B12 298 pg/mL 05/19/2016 Unkn own COMPLETE BLOOD COUNT 1530824 WBC 5.2 10e9/L 05/19/20 16 Unknown COMPLETE BLOOD COUNT 1977241 RBC 4.34 10e12/L 2015 Unknown COMPLETE BLOOD COUNT 6670428 HEMOGLOBIN 12.9 g/dL 05/19/20 16 Unknown COMPLETE BLOOD COUNT 5807605 HEMATOCRIT 38.9 % 05/19/20 16 Unknown COMPLETE BLOOD COUNT 0590924 MCV 89.6 fL 6 Unknown COMPLETE BLOOD COUNT 1543065 MCH 29.7 pg 6 Unknown COMPLETE BLOOD COUNT 8609893 MCHC 33.2 g/dL 6 Unknown COMPLETE BLOOD COUNT 9411955 PLATELET COUNT 200 10e9/L 10/2015 Unknown COMPLETE BLOOD COUNT 3636284 Mean Plt Volume 10.1 fL 10/2015 Unknown COMPLETE BLOOD COUNT 1413667 Neut Auto 45.4 % 6 Unknown COMPLETE BLOOD COUNT 5112418 Lymph Auto 35.6 % 05/19/20 16 Unknown COMPLETE BLOOD COUNT 9949626 [place] Auto 11.9 % 6 Unknown COMPLETE BLOOD COUNT 4390208 RDW 12.7 % 6 Unknown COMPLETE BLOOD COUNT 4134182 Eos Auto 6.7 % 6 Unknown COMPLETE BLOOD COUNT 1021523 Baso Auto 0.4 % 6 Unknown COMPLETE BLOOD COUNT 3113542 Neutrophil Abs 2.36 10e9/L Unknown COMPLETE BLOOD COUNT 8282003 Lymphocyte Abs 1.85 10e9/L Unknown COMPLETE BLOOD COUNT 5866194 Monocyte Abs 0.62 10e9/L 10/2015 Unknown COMPLETE BLOOD COUNT 8373189 Eosinophil Abs 0.35 10e9/L Unknown COMPLETE BLOOD COUNT 2573767 RDW-SD 40.6 fL 6 Unknown COMPLETE BLOOD COUNT 7471729 Basophil Abs 0.02 10e9/L 10/2015 Unknown LIPID GROUP 79862 Cholesterol 197 mg/dL 05/19/2016 Unkno wn LIPID GROUP 46156 Triglyceride 92 mg/dL 05/19/2016 Unkn own LIPID GROUP 47575 HDL CHOLESTEROL 58 mg/dL 05/19/2016 U nknown LIPID GROUP 74063 Chol/HDL Ratio 3.40 ratio 05/19/2016 U nknown LIPID GROUP 47876 NON-HDL Chol 139 mg/dL 05/19/2016 Unkn own LIPID GROUP 16539 LDL Cholesterol 121 mg/dL 05/19/2016 U nknown FREE T4 23254 T4 Free 1.19 ng/dL 05/19/2016 Unknown COMPREHENSIVE METABOLIC 84767 AST 19 U/L 2014 Unknown COMPREHENSIVE METABOLIC 83983 ALT 10 IU/L 2014 Unknown COMPREHENSIVE METABOLIC 49126 BUN 20 MG/DL 2014 Unknown COMPREHENSIVE METABOLIC 93784 ALBUMIN 4.4 GM/DL 2014 Unknown COMPREHENSIVE METABOLIC 89717 CHLORIDE 104 MMOL/L 04/05 Unknown COMPREHENSIVE METABOLIC 41701 BILI TOT 2.2 MG/DL 2014 Unknown COMPREHENSIVE METABOLIC 39581 ALK PHOS 55 U/L 2014 Unknown COMPREHENSIVE METABOLIC 16282 SODIUM 138 MMOL/L 04/05 Unknown COMPREHENSIVE METABOLIC 82098 CREATININE 1.04 MG/DL 03/18 Unknown COMPREHENSIVE METABOLIC 97911 CALCIUM 9.3 MG/DL 2014 Unknown COMPREHENSIVE METABOLIC 61754 POTASSIUM 4.5 MMOL/L 04/05 Unknown COMPREHENSIVE METABOLIC 00249 PROT TOT 6.7 GM/DL 2014 Unknown COMPREHENSIVE METABOLIC 78750 Glucose 77 MG/DL 2014 Unknown COMPREHENSIVE METABOLIC 07099 BICARB 25 MMOL/L 2014 Unknown COMPREHENSIVE METABOLIC 96375 ANION GAP 9 MEQ/L 2014 Unknown GFR CALC 5661994 GFR AA >60 ML/MIN 04/05/2015 Unknown GFR CALC 1436711 GFR NON-AA >60 ML/MIN 04/05/2015 Unknown LIPID GROUP 67563 HDL TEST 60 MG/DL 04/05/2015 Unknown LIPID GROUP 13708 TRIG 70 MG/DL 04/05/2015 Unknown LIPID GROUP 98299 TEST LDL 137 MG/DL 04/05/2015 Unknown LIPID GROUP 35144 CHOL 211 MG/DL 04/05/2015 Unknown LIPID GROUP 82191 RCHOL/HDL 3.52 RATIO 04/05/2015 Unknow n LIPID GROUP 44391 NON-HDL CH 151 MG/DL 04/05/2015 Unknow n COMPLETE BLOOD COUNT 5054354 WBC 5.3 10e9/L 04/05/20 15 Unknown COMPLETE BLOOD COUNT 7192234 RBC 4.42 10e12/L 2014 Unknown COMPLETE BLOOD COUNT 7997379 HGB 13.4 g/dL 5 Unknown COMPLETE BLOOD COUNT 9876524 HCT DET 39.6 % 5 Unknown COMPLETE BLOOD COUNT 2755101 MCV 89.6 fL 5 Unknown COMPLETE BLOOD COUNT 2512098 MCH 30.3 pg 5 Unknown COMPLETE BLOOD COUNT 8962625 MCHC 33.8 g/dL 5 Unknown COMPLETE BLOOD COUNT 2138744 PLT 201 10e9/L 04/05/20 15 Unknown COMPLETE BLOOD COUNT 8687524 MPV 10.3 fL 5 Unknown COMPLETE BLOOD COUNT 4944106 LUPE % 56.4 % 5 Unknown COMPLETE BLOOD COUNT 2803596 LY % 24.8 % 5 Unknown COMPLETE BLOOD COUNT 2386019 MON % 12.8 % 5 Unknown COMPLETE BLOOD COUNT 5881091 EOS % 5.4 % 5 Unknown COMPLETE BLOOD COUNT 8880085 BASO % 0.6 % 5 Unknown COMPLETE BLOOD COUNT 1361474 RDW 13.2 % 5 Unknown COMPLETE BLOOD COUNT 0402107 ABS LUPE 2.99 10e9/L 015 Unknown COMPLETE BLOOD COUNT 8864904 ABS LYMPH 1.31 10e9/L 015 Unknown COMPLETE BLOOD COUNT 8099633 ABS MONO 0.68 10e9/L 015 Unknown COMPLETE BLOOD COUNT 0160436 ABS EOS 0.29 10e9/L 015 Unknown COMPLETE BLOOD COUNT 8042296 ABS BASO 0.03 10e9/L 015 Unknown COMPLETE BLOOD COUNT 7362340 RDW-SD 42.3 fL 5 Unknown LIPID GROUP 18583 HDL TEST 51 MG/DL 07/19/2012 Unknown LIPID GROUP 92237 TRIG 129 MG/DL 07/19/2012 Unknown LIPID GROUP 02123 TEST LDL 98 MG/DL 07/19/2012 Unknown LIPID GROUP 31095 CHOL 175 MG/DL 07/19/2012 Unknown LIPID GROUP 32042 RCHOL/HDL 3.43 RATIO 07/19/2012 Unknow n COMPREHENSIVE METABOLIC 48598 AST 18 U/L 2011 Unknown COMPREHENSIVE METABOLIC 19681 ALT 12 IU/L 2011 Unknown COMPREHENSIVE METABOLIC 74275 BUN 10 MG/DL 2011 Unknown COMPREHENSIVE METABOLIC 92894 ALBUMIN 4.1 GM/DL 2011 Unknown COMPREHENSIVE METABOLIC 85096 CHLORIDE 103 MMOL/L 07/19 Unknown COMPREHENSIVE METABOLIC 82334 BILI TOT 0.9 MG/DL 2011 Unknown COMPREHENSIVE METABOLIC 09534 ALK PHOS 62 U/L 2011 Unknown COMPREHENSIVE METABOLIC 69100 SODIUM 138 MMOL/L 07/19 Unknown COMPREHENSIVE METABOLIC 30870 CREATININE 1.08 MG/DL 10/2011 Unknown COMPREHENSIVE METABOLIC 19508 CALCIUM 9.1 MG/DL 2011 Unknown COMPREHENSIVE METABOLIC 52539 POTASSIUM 4.2 MMOL/L 07/19 Unknown COMPREHENSIVE METABOLIC 31272 PROT TOT 6.7 GM/DL 2011 Unknown COMPREHENSIVE METABOLIC 88612 Glucose 101 MG/DL 2011 Unknown COMPREHENSIVE METABOLIC 02126 BICARB 27 MMOL/L 2011 Unknown COMPREHENSIVE METABOLIC 94575 ANION GAP 8 MEQ/L 2011 Unknown GFR CALC 9228528 GFR AA >60 ML/MIN 07/19/2012 Unknown GFR CALC 5307876 GFR NON-AA >60 ML/MIN 07/19/2012 Unknown Procedures Procedure Codes Date THER/PROPH/DIAG INJ SC/IM CPT-4: 25294 01/13/2019 TRIAMCINOLONE ACET INJ NOS CPT-4: J3301 01/13/2019 DEXAMETHASONE SODIUM PHOS CPT-4: J1100 01/13/2019 ROUTINE VENIPUNCTURE CPT-4: 53258 09/04/2018 COMPREHEN METABOLIC PANEL CPT-4: 76275 09/04/2018 COMPLETE CBC W/AUTO DIFF WBC CPT-4: 13590 09/04/2018 LIPID PANEL CPT-4: 18933 09/04/2018 ASSAY OF PSA TOTAL CPT-4: 35315 09/04/2018 ASSAY THYROID STIM HORMONE CPT-4: 53266 09/04/2018 URINALYSIS NONAUTO W/O SCOPE CPT-4: 83552 05/15/2018 ROUTINE VENIPUNCTURE CPT-4: 41821 11/16/2017 A FRT/VG P CPT-4: 9492936 11/16/2017 A FOOD C P CPT-4: 7793403 11/16/2017 A NUTS PNL CPT-4: 4956157 11/16/2017 THER/PROPH/DIAG INJ SC/IM CPT-4: 84806 11/06/2017 TRIAMCINOLONE ACET INJ NOS CPT-4: J3301 11/06/2017 DEXAMETHASONE SODIUM PHOS CPT-4: J1100 11/06/2017 ROUTINE VENIPUNCTURE CPT-4: 09929 09/03/2017 ASSAY OF FREE THYROXINE CPT-4: 58452 09/03/2017 ASSAY THYROID STIM HORMONE CPT-4: 35049 09/03/2017 ASSAY TRIIODOTHYRONINE (T3) CPT-4: 59380 09/03/2017 ROUTINE VENIPUNCTURE CPT-4: 31282 07/31/2017 COMPREHEN METABOLIC PANEL CPT-4: 82856 07/31/2017 COMPLETE CBC W/AUTO DIFF WBC CPT-4: 94157 07/31/2017 LIPID PANEL CPT-4: 64294 07/31/2017 FLU VACC PRSV FREE INC ANTIG 65 AND OLDER CPT-4: 93515 07/04/2017 ADMIN INFLUENZA VIRUS VAC CPT-4: G0008 07/04/2017 ROUTINE VENIPUNCTURE CPT-4: 08745 02/26/2017 ASSAY THYROID STIM HORMONE CPT-4: 96956 02/26/2017 COMPREHEN METABOLIC PANEL CPT-4: 00645 02/26/2017 COMPLETE CBC W/AUTO DIFF WBC CPT-4: 03817 02/26/2017 LIPID PANEL CPT-4: 40365 02/26/2017 ASSAY OF PSA TOTAL CPT-4: 48411 02/26/2017 FLUZONE, 5ML (Medicare) CPT-4: Q2038 06/28/2016 ADMIN INFLUENZA VIRUS VAC CPT-4: G0008 06/28/2016 ROUTINE VENIPUNCTURE CPT-4: 46834 05/19/2016 ASSAY OF FREE THYROXINE CPT-4: 89279 05/19/2016 ASSAY THYROID STIM HORMONE CPT-4: 75276 05/19/2016 COMPREHEN METABOLIC PANEL CPT-4: 26244 05/19/2016 COMPLETE CBC W/AUTO DIFF WBC CPT-4: 10410 05/19/2016 LIPID PANEL CPT-4: 43685 05/19/2016 VITAMIN B-12 CPT-4: 53812 05/19/2016 PPPS, initial visit CPT-4: G0438 05/10/2016 ROUTINE VENIPUNCTURE CPT-4: 71355 04/05/2015 ASSAY THYROID STIM HORMONE CPT-4: 33144 04/05/2015 COMPREHEN METABOLIC PANEL CPT-4: 88011 04/05/2015 COMPLETE CBC W/AUTO DIFF WBC CPT-4: 60814 04/05/2015 LIPID PANEL CPT-4: 20611 04/05/2015 ASSAY OF PSA TOTAL CPT-4: 78237 04/05/2015 ROUTINE VENIPUNCTURE CPT-4: 88436 07/19/2012 COMPREHEN METABOLIC PANEL CPT-4: 17428 07/19/2012 LIPID PANEL CPT-4: 26151 07/19/2012 ELECTROCARDIOGRAM COMPLETE CPT-4: 75691 03/22/2012 Vital Signs Date Vital 09/24/2019 Blood Pressure 1: 125/72 Code: 8480-6 BMI: 19.8 Code: 42463-0 Heart Rate 1: 88 bpm Height: 5'11" [...] 1: 102/60 Code: 8480-6 BMI: 19.1 Code: 79567-4 Heart Rate 1: 82 bpm Height: 5'11" Respiratory Rate: 22 bpm SpO2: 97% Tempera ture: 36.4 (C) / 97.6 (F) Weight: 137 lbs 04/25/2018 Blood Pressure 1: 118/64 Code: 8480-6 BMI: 19.2 Code: 46860-2 Heart Rate 1: 98 bpm Height: 5'11" Respiratory Rate: 20 bpm SpO2: 99% Tempera ture: 36.4 (C) / 97.6 (F) Weight: 138 lbs 11/06/2017 Blood Pressure 1: 108/68 Code: 8480-6 BMI: 18.5 Code: 64494-3 Heart Rate 1: 68 bpm Height: 5'11" Respiratory Rate: 20 bpm SpO2: 96% Tempera ture: 36.8 (C) / 98.2 (F) Weight: 133 lbs 09/03/2017 Blood Pressure 1: 122/64 Code: 8480-6 BMI: 17.6 Code: 05088-4 Heart Rate 1: 90 bpm Height: 5'11" Respiratory Rate: 20 bpm SpO2: 98% Tempera ture: 36.4 (C) / 97.6 (F) Weight: 126 lbs 08/21/2017 Blood Pressure 1: 114/80 Code: 8480-6 BMI: 17.9 Code: 32963-5 Heart Rate 1: 80 bpm Height: 5'11" Respiratory Rate: 20 bpm SpO2: 95% Tempera ture: 36.6 (C) / 97.9 (F) Weight: 128 lbs 02/13/2017 Blood Pressure 1: 122/60 Code: 8480-6 BMI: 18.5 Code: 63147-3 Heart Rate 1: 76 bpm Height: 5'11" Respiratory Rate: 20 bpm SpO2: 96% Tempera ture: 36.9 (C) / 98.4 (F) Weight: 133 lbs 11/23/2016 Blood Pressure 1: 126/70 Code: 8480-6 BMI: 18.5 Code: 30083-7 Heart Rate 1: 100 bpm Height: 5'11" Respiratory Rate: 20 bpm SpO2: 96% Tempera ture: 37.1 (C) / 98.8 (F) Weight: 133 lbs 05/23/2016 Blood Pressure 1: 128/82 Code: 8480-6 BMI: 18.5 Code: 25811-6 Heart Rate 1: 88 bpm Height: 5'11" Respiratory Rate: 20 bpm Temperature: 36 .7 (C) / 98.0 (F) Weight: 133 lbs 05/10/2016 Blood Pressure 1: 146/70 Code: 8480-6 BMI: 18.5 Code: 17658-7 Heart Rate 1: 84 bpm Height: 5'11" Respiratory Rate: 20 bpm Temperature: 36 .7 (C) / 98.1 (F) Weight: 133 lbs 04/01/2015 Blood Pressure 1: 102/60 Code: 8480-6 BMI: 18.5 Code: 00580-3 Heart Rate 1: 64 bpm Height: 5'11" Respiratory Rate: 20 bpm Temperature: 36 .8 (C) / 98.2 (F) Weight: 133 lbs 01/13/2014 Blood Pressure 1: 124/78 Code: 8480-6 BMI: 19.8 Code: 56609-0 Heart Rate 1: 76 bpm Height: 5'11" Respiratory Rate: 20 bpm Temperature: 36 .8 (C) / 98.2 (F) Weight: 142 lbs 04/03/2012 Blood Pressure 1: 106/76 Code: 8480-6 BMI: 20.9 Code: 87969-1 Heart Rate 1: 84 bpm Height: 5'11" Respiratory Rate: 20 bpm Temperature: 36 .7 (C) / 98.0 (F) Weight: 150 lbs 12/20/2011 Blood Pressure 1: 116/60 Code: 8480-6 BMI: 20.1 Code: 89094-4 Heart Rate 1: 80 bpm Height: 5'11" Respiratory Rate: 20 bpm Temperature: 36 .4 (C) / 97.6 (F) Weight: 144 lbs 10/24/2011 Blood Pressure 1: 132/74 Code: 8480-6 BMI: 19.7 Code: 59466-7 Heart Rate 1: 96 bpm Height: 5'11" [...] 04/05/2015 follow up 04/01/2015 follow up 01/13/2014 [facility] from Justin Palacio'justin in November 2012 lab draw 07/19/2012 follow up 04/03/2012 S/P stent placement in LAD, changed effient to plavix hip pain 12/20/2011 dyskinesia or tremor 10/24/2011 follow up 03/13/2011 started on effient, zocor, and atenolol follow up 02/20/2011 Hospital Fwup/Dr Christian rojas follow up 02/23/2010 hosp [facility], appt with Dr Bajwa 03/22/10 insomnia 01/12/2010 problems falling and staying asleep, takes nortriptyline Encounters Encounter Performer Location Codes Date ([id number]) OFFICE/OUTPATIENT VISIT EST Diagnosis: Encounter for therapeutic drug level monitoring[ICD10: Z51.81] Diagnosis: Essential tremor[ICD10: G25.0] Verna Alvarez [employer] CPT-4: 98658 09/24/2019 ([id number]) OFFICE/OUTPATIENT VISIT EST Diagnosis: Noninfective gastroenteritis and colitis, unspecified[ICD10: K52.9] Diagnosis: Hemorrhage of anus and rectum[ICD10: K62.5] Vonnie Loza [employer] CPT-4: 14512 05/26/2019 ([id number]) OFFICE/OUTPATIENT VISIT EST Diagnosis: Other intervertebral disc degeneration, 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] Diagnosis: Other forms of dyspnea[ICD10: R06.09] Vonnie Vásquez KARIE Loza [employer] CPT-4: 62081 03/17/2019 OFFICE/OUTPATIENT VISIT EST Diagnosis: Other intervertebral disc degeneration, 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] Diagnosis: Other symptoms and signs involving the musculoskeletal system[ICD10: R29.898] Vonnie Loza [employer] CPT-4: 50092 02/18/2019 ([id number]) OFFICE/OUTPATIENT VISIT EST Diagnosis: Other allergic rhinitis[ICD10: J30.89] Akilah GASPAR JustinCREATIV CPT-4: 20769 01/13/2019 ([id number]) NURSE/OUTPATIENT VISIT EST Diagnosis: Mixed hyperlipidemia[ICD10: E78.2] Diagnosis: Essential (primary) hypertension[ICD10: I10] Diagnosis: Encounter for screening for malignant neoplasm of prostate[ICD10: Z12.5] Diagnosis: Encounter for general adult medical examination with abnormal findings[ICD10: Z00.01] Diagnosis: Benign prostatic hyperplasia without lower urinary tract symptoms[ICD10: N40.0] Vonnie COLMENARES 3JamKim [employer] CPT-4: 53156 09/04/2018 ([id number]) OFFICE/OUTPATIENT VISIT EST Diagnosis: Otorrhea, left ear[ICD10: H92.12] Diagnosis: Impacted cerumen, right ear[ICD10: H61.21] Verna MATHEWS DO [facility] CPT-4: 35137 09/03/2018 ([id number]) OFFICE/OUTPATIENT VISIT EST Diagnosis: Other intervertebral disc degeneration, 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] Diagnosis: Primary insomnia[ICD10: F51.01] Diagnosis: Essential tremor[ICD10: G25.0] Vonnie MATHEWS DO [facility] CPT-4: 05185 08/26/2018 ([id number]) OFFICE/OUTPATIENT VISIT EST Diagnosis: Pelvic and perineal pain[ICD10: R10.2] Verna MATHEWS [employer] [facility] CPT-4: 40222 05/15/2018 ([id number]) OFFICE/OUTPATIENT VISIT EST Diagnosis: Encounter for therapeutic drug level monitoring[ICD10: Z51.81] Diagnosis: Acute sinusitis, unspecified[ICD10: J01.90] Diagnosis: Other intervertebral disc degeneration, 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] Diagnosis: Essential tremor[ICD10: G25.0] Diagnosis: Raynaud's syndrome without gangrene[ICD10: I73.00] Verna MATHEWS [employer] [facility] CPT-4: 48816 04/25/2018 ([id number]) OFFICE/OUTPATIENT VISIT EST Diagnosis: Idiopathic urticaria[ICD10: L50.1] Diagnosis: Other urticaria[ICD10: L50.8] Vonnie MATHEWS [employer] [facility] CPT-4: 56333 11/16/2017 ([id number]) OFFICE/OUTPATIENT VISIT EST Diagnosis: Idiopathic urticaria[ICD10: L50.1] Diagnosis: Other urticaria[ICD10: L50.8] Diagnosis: Other forms of dyspnea[ICD10: R06.09] Vonnie BREWERNE Denia MATHEWS [employer] [facility] CPT-4: 49036 11/06/2017 ([id number]) OFFICE/OUTPATIENT VISIT EST Diagnosis: Dyspnea, unspecified[ICD10: R06.00] Diagnosis: Abnormal weight loss[ICD10: R63.4] Vonnie LUCIA 3JamKim MATHEWS [employer] CPT-4: 08715 09/03/2017 ([id number]) OFFICE/OUTPATIENT VISIT EST 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] Diagnosis: Mixed hyperlipidemia[ICD10: E78.2] Diagnosis: Essential tremor[ICD10: G25.0] Diagnosis: Essential (primary) hypertension[ICD10: I10] Diagnosis: Abnormal weight loss[ICD10: R63.4] Vonnie Sebastianalyssaranjan RAFAT RE[facility] CPT-4: 64433 08/21/2017 ([id number]) OFFICE/OUTPATIENT VISIT EST Diagnosis: Mixed hyperlipidemia[ICD10: E78.2] Diagnosis: Essential (primary) hypertension[ICD10: I10] 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] Diagnosis: Anemia, unspecified[ICD10: D64.9] Vonnie Orendranjan ASCENCIOMARSHA Galarza Denia [facility] CPT-4: 72171 07/31/2017 ([id number]) OFFICE/OUTPATIENT VISIT EST Diagnosis: FLU VACCINE[ICD10: Z23] Vonnie Sebastianalyssaranjan ASCENCIOVONNIE Denia GERMAN [employer] CPT-4: 53606 07/04/2017 ([id number]) OFFICE/OUTPATIENT VISIT EST Diagnosis: Mixed hyperlipidemia[ICD10: E78.2] Diagnosis: Essential tremor[ICD10: G25.0] 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] Diagnosis: Essential (primary) hypertension[ICD10: I10] Diagnosis: Supraventricular tachycardia[ICD10: I47.1] Diagnosis: Other fatigue[ICD10: R53.83] Diagnosis: Encounter for screening for malignant neoplasm of prostate[ICD10: Z12.5] Vonnie COLMENARES Denia MATHEWS [employer] CPT-4: 54817 02/26/2017 ([id number]) OFFICE/OUTPATIENT VISIT EST Diagnosis: Essential tremor[ICD10: G25.0] Vonnie MATHEWS DO [facility] CPT-4: 36853 02/13/2017 ([id number]) OFFICE/OUTPATIENT VISIT EST Diagnosis: Essential tremor[ICD10: G25.0] Diagnosis: Other intervertebral disc degeneration, 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] Vonnie MATHEWS DO [facility] CPT-4: 98300 11/23/2016 ([id number]) OFFICE/OUTPATIENT VISIT EST Diagnosis: FLU VACCINE[ICD10: Z23] Vonnie GERMAN DO [facility] CPT-4: 77560 06/28/2016 OFFICE/OUTPATIENT VISIT EST Diagnosis: Open bite of right hand, initial encounter[ICD10: S61.451A] Vonnie MATHEWS DO [facility] CPT-4: 14477 05/23/2016 ([id number]) OFFICE/OUTPATIENT VISIT EST Diagnosis: Encounter for general adult medical examination with abnormal findings[ICD10: Z00.01] Diagnosis: Mixed hyperlipidemia[ICD10: E78.2] Diagnosis: Essential tremor[ICD10: G25.0] 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] Vonnie MATHEWS DO [facility] CPT-4: 89972 05/19/2016 ([id number]) OFFICE/OUTPATIENT VISIT EST Diagnosis: HYPERLIPIDEMIA NEC/NOS[ICD9: 272.4] Diagnosis: CAD[ICD9: 414.00] Diagnosis: TACHYCARDIA[ICD9: 785.0] Diagnosis: HYPERTENSION[ICD9: 401.9] Diagnosis: Routine medical exam[ICD9: V70.0] Vonnie MATHEWS DO [facility] CPT-4: 54217 04/05/2015 ([id number]) OFFICE/OUTPATIENT VISIT EST Diagnosis: HYPERTENSION[ICD9: 401.9] Diagnosis: HYPERLIPIDEMIA NEC/NOS[ICD9: 272.4] Diagnosis: CAD[ICD9: 414.00] Diagnosis: LUMB/LUMBOSAC DISC DEGEN[ICD9: 722.52] Vonnie LAINeri GASPAR Denia MATHEWS DO [facility] CPT-4: 07918 04/01/2015 ([id number]) OFFICE/OUTPATIENT VISIT EST Diagnosis: CHEST PAIN NOS[ICD9: 786.50] Diagnosis: PAIN IN THORACIC SPINE[ICD9: 724.1] Diagnosis: HYPERTENSION[ICD9: 401.9] Diagnosis: GERD[ICD9: 530.81] Vonnie MaciasKim ROMULONDER [facility] CPT-4: 11867 01/13/2014 ([id number]) OFFICE/OUTPATIENT VISIT EST Diagnosis: CAD[ICD9: 414.00] Diagnosis: HYPERLIPIDEMIA NEC/NOS[ICD9: 272.4] Vonniejuan jose Mathews SONUClary ANNA SKim ROMULONDER DO [facility] CPT-4: 49718 07/19/2012 ([id number]) OFFICE/OUTPATIENT VISIT EST Diagnosis: CAD[ICD9: 414.00] Diagnosis: INSOMNIA NOS[ICD9: 780.52] Vonnie Romulojuan miguel Loza OR Y[facility]ISA [facility] CPT-4: 04780 04/03/2012 ([id number]) OFFICE/OUTPATIENT VISIT EST Diagnosis: CHEST PAIN NOS[ICD9: 786.50] Diagnosis: CAD[ICD9: 414.00] Vonnie ASCENCIOLINE Just[employer]m ROMULONDER DO [facility] CPT-4: 60463 03/22/2012 ([id number]) OFFICE/OUTPATIENT VISIT EST Diagnosis: PROSTATITIS[ICD9: 601.9] Diagnosis: TREMOR NEC[ICD9: 333.1] Vonnie Reid VONNIE JustinKim ROMULOND ER DO [facility] CPT-4: 45840 12/20/2011 OFFICE/OUTPATIENT VISIT EST Diagnosis: TREMOR NEC[ICD9: 333.1] Diagnosis: TACHYCARDIA[ICD9: 785.0] Diagnosis: HYPERTENSION[ICD9: 401.9] Vonnie Romuloalyssaranjan VONNIE JustinKim ORE NDER DO [facility] CPT-4: 92780 10/24/2011 OFFICE/OUTPATIENT VISIT EST Vonnie Romulojuan miguel COLMENARES JustinKim ROMULO NDER DO [facility] CPT- 4: 72212 03/13/2011 ([id number]) OFFICE/OUTPATIENT VISIT EST Vonnie GASPAR SKim ORENDER DO [facility] CPT-4: 00199 02/20/2011 ([id number]) OFFICE/OUTPATIENT VISIT, EST Vonnie Romulojuan miguel NELSON JustinKim REID [facility] CPT-4: 78983 02/23/2010 ([id number]) OFFICE/OUTPATIENT VISIT, EST Vonnie MTAHEWS [facility] CPT-4: 29127 01/12/2010 Plan of Care Planned Activity Notes [...] him that pens can be purchased on [employer]. ICD-9 : 333.1 ICD-10 : G25.0 09/24/2019 Visit Diagnosis Plan: Noninfective gastroenteritis and colitis, unspecified Discussion: Flagyl [place] diet Update colonoscopy ICD-9 : 558.9 ICD-10 : K52.9 05/26/2019 Visit Diagnosis Plan: Hemorrhage of anus and rectum Di scussion: Update colonoscopy ICD-9 : 569.3 ICD-10 : K62.5 05/26/2019 Appointment: Vonnie Mathews WPtel: [phone] [facility] [place] record request faxed 05/23; LM with medical records 05/26/19 Hospital Follow Up 05/26/2019 Care Plan: Referral Order SNOMED-CT : 30 [id number] Pending 05/26/2019 Visit Diagnosis Plan: Other intervertebral disc degene ration, lumbar region Discussion: Increase lyrica to 150mg po q HS Continue stretches from PT [facility] on [facility] 12 Fwup after that appointment ICD-9 : 722.52 ICD-10 : M51.36 03/17/2019 Appointment: Vonnie Mathews WPtel: [phone] [facility] [place] FOLLOW UP 03/17/2019 Visit Diagnosis Plan: Other intervertebral disc degene ration, lumbar region Discussion: Start PT Referral for epidural Will start lyrica 75mg po q HS once CT scan results obtained [facility] ambien Follow Up: 3 weeks ICD-9 : [...] : R29.898 02/18/2019 Appointment: Vonnie Mathews WPtel: [address] [place] [address] FOLLOW UP 02/18/2019 Appointment: Vonnie Mathews WPtel: [address] [place] [address] [place] CANCELED 02/18/2019 Visit Diagnosis Plan: Other [...] J30.89 01/13/2019 Appointment: Akilah Lopez [address] [place] [address] [place] Due for annual wellness ACUTE ILLNESS 01/14/20 19 Appointment: Vonnie Mathews WPtel: [address] [place], [place] [phone] [place] LAB 09/04/2018 Visit Diagnosis Plan: Impacted [...] : H92.12 09/03/2018 Appointment: Verna Ramirez [address] ACUTE ILLNESS 09/03/2018 Visit Diagnosis Plan: [...] 722.52 ICD-10 : M51.36 08/26/2018 Appointment: Vonnie Matehws WPtel: [phone] [facility] [place] FOLLOW UP 08/26/2018 Visit Diagnosis [...] ICD-10 : R10.2 05/15/2018 Appointment: Verna Ramirez [address] [place], [place] [id number] ACUTE ILLNESS 05/15/2018 Patient Education: Patient Medication Summary Completed 05/15/2018 Care Plan: US EXAM PELVIC COMPLETE scrotal LOINC : 38248-2 Pending 05/15/2018 Visit Diagnosis Plan: Other intervertebral [...] ICD-10 : I73.00 04/25/2018 Appointment: Verna Ramirez [address] [place] [address] MEDICATION REVIEW 04/25/2018 Patient Education: Patient Medication Summary Completed 04/25/2018 Appointment: Vonnie Mathews WPtel: [address] [place] [address] 11/16/2017 Patient Education: Patient Medication Summary Completed [...] : L50.1 11/06/2017 Appointment: Vonnie Mathews WPtel: [address] [place] [address] FOLLOW UP 11/06/2017 Patient Education: Patient Medication [...] ICD-10 : R63.4 09/03/2017 Appointment: Vonnie Mathewstel: [address] [place], [place] [phone] [place] FOLLOW UP 09/03/2017 Patient Education: Patient [...] Diagnosis Plan: Atherosclerotic he art disease of 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 Discussion: Sees Cardiology in 2 days To ER if CP returns before ICD-9 : 414.00 ICD-10 : I25.10 08/21/2017 Appointment: Vonnie Mathewstel: [address] [place], [place] [phone] [place] FOLLOW UP 08/21/2017 Patient Education: Patient Medication Summary Completed 08/21/2017 Appointment: Vonnie Mathewstel: [address] [place], [place] [phone] [place] LAB 07/31/2017 Patient Education: Patient Medication Summary Completed 07/31/2017 Appointment: Vonnie Mathews WPtel: [address] [place], [place] [phone] [place] INJECTION 07/04/2017 Patient Education: Patient Medication Summary Completed 07/04/2017 Appointment: Vonnie Mathews WPtel: [address] [place], [place] [phone] [place] LAB 02/26/2017 Patient Education: Patient Medication Summary Completed 02/26/2017 Visit Diagnosis Plan: Essential tremor Discussion: Con tinue clonazepam at 1mg q AM and primidone 50mg q HS Follow Up: 3 months ICD-9 : 333.1 ICD-10 : G25.0 02/13/2017 Appointment: Vonnie Mathews WPtel: [address] [place], [place] [phone] 02/08 confirmed~sl FOLLOW UP 02/13/2017 Patient Education: Patient Medication Summary Completed 02/13/2017 Appointment: Vonnie Mathews WPtel: [address] [place], [place] [phone] RESCHEDULED 01/23/2017 Visit Diagnosis Plan: Other intervertebral disc degene ration, lumbar region Discussion: DC oxycodone Tramadol 50mg 1-2 po TID prn pain Follow Up: 2 months ICD-9 : 722.52 ICD-10 : M51.36 11/23/2016 Visit Diagnosis Plan: Essential tremor Discussion: Inc rease clonazepam to 1mg po BID Discussed sinemet ICD-9 : 333.1 ICD-10 : G25.0 11/23/2016 Appointment: Vonnie Mathews WPtel: [address] [place], [place] [phone] 11/22 confirmed~sl MEDICATION REVIEW 11/23/2016 Patient Education: Patient Medication Summary Completed 11/23/2016 Patient Education: [facility] - [employer] - Clonazepam - 18-64 - Dynamic Portal ID Completed 11/23/2016 Appointment: Vonnie Mathews WPtel: [address] [place], [place] [phone] [place] INJECTION 06/28/2016 Patient Education: Patient Medication Summary Completed 06/28/2016 Referral: Fernando Day WPtel: #1 [facility] Shilpa Lopez [id number] per Maribeth, the patient is sched [...] if worsening 05/23/2016 Appointment: Vonnie Mathews WPtel: [address] [place], [place] [phone] ER Follow UP 05/23/2016 Patient Education: Patient Medication Summary Completed 05/23/2016 Appointment: Vonnie Mathews WPtel: [address] [place], [place] [phone] [place] LAB 05/19/2016 Patient Education: Patient Medication Summary Completed 05/19/2016 Visit Plan: Change coreg to 3.125mg BID Trial of low dose clonazepam 0.5mg BID for tremors Fwup with Dr. Ramsey as scheduled Return for fasting lab--CBC, CMP, TSH, free T4, Lipids, PSA, B12 Proceed with Colonoscopy 05/10/2016 Appointment: Vonnie Mathews WPtel: [address] [place], [place] [phone] 05/09 confirmed~sl Annual Well Visit 05/10/2016 Patient Education: Patient Medication Summary Completed 05/10/2016 Care Plan: Referral Order SNOMED-CT : 30 [id number] Pending 05/10/2016 Appointment: Vonnie Mathews WPtel: [address] [place], [place] [phone] [place] Rescheduled for 05/10/16 at 2PM~lb RESCHEDULED 04/26/2016 Referral: Danilo Ramsey WPtel: [facility] Denia Mercado [id number] [place] Referral Initiated 04/29/2015 Appointment: Vonnie Mathews WPtel: [address] [place], [place] [phone] [place] LAB 04/05/2015 Patient Education: Patient Medication Summary Completed 04/05/2015 Visit Plan: Return in AM for fasting lab --CMP, lipids, CBC, TSH, PSA Change hydrocodone to oxycodone 7.5/325mg 1-2 po TID Schedule with cardiology Needs colonoscopy once cardiology evaluation complete Will need to restart chol meds after lab Recheck 1mo on pain meds 04/01/2015 Appointment: Vonnie Mathews WPtel: [address] [place], [place] [phone] 03/31 confirmed -mf PHYSICAL 04/01/2015 Patient Education: Patient Medication Summary Completed 04/01/2015 Appointment: Vonnie Mathews WPtel: [address] [place] [address] Annual Well Visit 09/23/2014 Visit Plan: Continue protonix Pt has fwu p with Card next month Rec chiropracter or PT for ribs/thoracics being out and could be contributing to chest pain 01/13/2014 Appointment: Vonnie Mathews WPtel: [address] [place], [place] [phone] FOLLOW UP 01/13/2014 Patient Education: Patient Medication Summary Completed 01/13/2014 Appointment: Ariella Mcnally WPtel: [address] [place] [address] [place] FOLLOW UP 12/12/2013 Appointment: Malika Cárdenas WPtel: [address] [place], [place] [phone] PHYSICAL 12/12/2013 Appointment: Vonnie Mathews WPtel: [address] [place], [place] [phone] ACUTE ILLNESS 02/20/2013 Appointment: Vonnie Mathews WPtel: [address] [place], [place] [phone] [place] LAB 07/19/2012 Patient Education: Patient Medication Summary Completed 07/19/2012 Appointment: Vonnie Mathews WPtel: [address] [place], [place] [phone] [place] FOLLOW UP 04/03/2012 Patient Education: Patient Medication Summary Completed 04/03/2012 Appointment: Vonnie Mathews WPtel: [address] [place] [address] ACUTE ILLNESS 03/22/2012 Patient Education: Patient Medication Summary Completed 03/22/2012 Appointment: Vonnie Mathews WPtel: [address] [place] [address] FOLLOW UP 12/26/2011 Visit Plan: Add Cipro Continue current m eds 12/20/2011 Appointment: Vonnie Mathews WPtel: [address] [place] [address] ACUTE ILLNESS 12/20/2011 Patient Education: Patient Medication Summary Completed 12/20/2011 Visit Plan: Change neurontin to Cymbalta 30mg for 1wk then 60mg QD Add Propranolol for tremor 10/24/2011 Appointment: Vonnie Mathews WPtel: [address] [place] [address] ACUTE ILLNESS 10/24/2011 Appointment: Vonnie Mathews WPtel: [address] [place] [address] ACUTE ILLNESS 10/24/2011 Patient Education: Patient Medication Summary Completed 10/24/2011 Visit Plan: Continue current meds and fw up with Card as scheduled 03/13/2011 Appointment: Vonnie Mathews WPtel: [address] [place] [address] FOLLOW UP 03/13/2011 Patient Education: Patient Medication Summary Completed 03/13/2011 Visit Plan: Will obtain all records and lab from Guillaume Discussed will likely need heart cath which pt states that Card did talk to him about in the hospital 02/20/2011 Appointment: Vonnie Mathews WPtel: [address] [place] [address] ACUTE ILLNESS 02/20/2011 Patient Education: Patient Medication Summary Completed 02/20/2011 Visit Plan: Cont Pepcid and Prilosec See Card for cardiac cath. 02/23/2010 Appointment: Vonnie Mathews WPtel: [address] [place], [place] [phone] FOLLOW UP 02/23/2010 Patient Education: Patient Medication Summary Completed 02/23/2010 Visit Plan: Increase Pamelor to 75mg qhs Increase Hydrocodone to 10/325mg 1-2 po q6 prn 01/12/2010 Appointment: Vonnie Mathews WPtel: [phone] [facility] ACUTE ILLNESS 01/12/2010 Patient Education: Patient Medication Summary Completed 01/12/2010 Referral: Iván Pardo WPtel: [facility] [address] Referral Initiated Referral: Fernando Day WPtel: [address] [address] [place] Referral Completed Referral: Fernando Day WPtel: #1 [facility] Referral Appointment Requested Instructions Comment [...]
--- OUTSIDE RECORDS SUMMARY | 2020-02-10 08:34 | XMS REPORT | CCD ---
Author Author Nash Mathews D.O. Organization [facility] Address [address] [place] [address] Phone Care Team Providers Care Cattle Driver Name Role Phone Vonnie Mathews D.O., PP Unavailable CCM Unavailable Summary Purpose Interface Exchange Insurance Providers Payer name Policy type / Coverage type Covered democrat ID Effective Begin Date Effective End Date WPS MEDICARE PART B [place] Medicare Part B [id number] 2018 Unknown Family History Family History data not found Social History Social History Element Codes Description Effective Dates Marital status Unknown 10/24/[address]: [id number] Nonsmoker 03/29/2011 Allergies, Adverse Reactions, Alerts Substance [...] ear ICD-9: 388.60 ICD-10: H92.12 09/03/2018 Active Essential tremor ICD-9: 333.1 ICD-10: G25.0 08/26/2018 Active Primary insomnia ICD-9: 780.52 ICD-10: F51.01 08/26/2018 Active Pelvic and perineal pain ICD-9: 625.9 ICD-10: R10.2 05/15/2018 Active Acute sinusitis, unspecified ICD-9: 461.9 ICD-10: J01.90 04/25/2018 Active Dyspnea, unspecified ICD-9: 786.09 ICD-10: R06.00 09/03/2017 Active Encounter for therapeutic drug level monitoring ICD-9: V58.83 ICD-10: Z51.81 04/25/2018 Active Raynaud's syndrome without gangrene ICD-9: 443.0 ICD-10: I73.00 04/25/2018 Active Other urticaria ICD-9: 708.8 ICD-10: L50.8 11/06/2017 Active Abnormal weight loss ICD-9: 783.21 ICD-10: R63.4 08/21/2017 Active Atherosclerotic heart disease of [place] coronary arter y without angina pectoris ICD-9: [...] Fill Instructions clonazepam 1 mg tablet RxNorm: 603687 TAKE 1 TABLET BY MOUTH EV SUSAN AM 09/23/2019 10/22/2019 Active clonazepam 1 mg tablet RxNorm: 377471 TAKE 1 TABLET BY MOUTH EV SUSAN AM 08/21/2019 09/22/2019 Inactive Singulair 10 mg tablet RxNorm: 068341 TABLET(S) 1 TABLET(S) PO QD 1 10/11/2019 Active Flagyl 500 mg tablet RxNorm: 443485 1 Tablet(s) PO TID 05/26/2019 Inactive clonazepam 1 mg tablet RxNorm: 678568 TAKE 1 TABLET BY MOUTH EV SUSAN MORNING 05/23/2019 06/21/2019 Inactive pravastatin 20 mg tablet RxNorm: 416692 1 Tablet(s) PO QD 04/14/2019 10/10/2019 Active Needs updated fasting labs Singulair 10 mg tablet RxNorm: 179331 Tablet(s) 1 TABLET(S) PO QD 0 04/14/2019 07/12/2019 Inactive clonazepam 1 mg tablet RxNorm: 304981 1 Tablet(s) PO QAM 02/21/2019 0 05/23/2019 Inactive Bevespi Aerosphere 9 mcg-4.8 mcg HFA aerosol inhaler RxNorm: 5085915 2 Puff(s) INH BID 02/19/2019 No Stop Date Active ProAir HFA 90 mcg/actuation aerosol inhaler RxNorm: 725203 2 Puff(s) INH Q4H as needed 02/19/2019 No Stop Date Active metoprolol tartrate 25 mg tablet RxNorm: 124194 1/2 Tablet(s) PO BI D 02/18/2019 05/18/2019 Inactive pravastatin 20 mg tablet RxNorm: 025157 1 Tablet(s) PO QD Needs updated fasting labs 01/13/2019 04/14/2019 Inactive Needs updated fa sting labs Singulair 10 mg tablet RxNorm: 623671 Tablet(s) 1 TABLET(S) PO QD 0 01/13/2019 04/12/2019 Inactive Plavix 75 mg tablet RxNorm: 866756 Tablet(s) 1 TABLET(S) PO QD 0404/201906/20/2019 Inactive [SAVINGS FOR NON-COVERED [facility] -- BIN:941108, PCN: ASPROD1, Group: XXXXX, ID# [id number], Questions: . THIS IS NOT INSURANCE.] Singulair 10 mg tablet RxNorm: 180341 1 TABLET(S) PO QD 10/29/2018 Inactive primidone 50 mg tablet RxNorm: 579255 2 TABLET(S) PO BI D TAKE 2 TABLETS BY MOUTH EVERY NIGHT AT BEDTIME 10/07/2018 01/12/2019 Inactive Patient requests 90 days supply pravastatin 20 mg tablet RxNorm: 947053 1 TABLET(S) PO QD 09/23/2018 01/12/2019 Inactive clonazepam 1 mg tablet RxNorm: 934967 1 Tablet(s) PO QAM 09/19/2018 0 12/17/2018 Inactive primidone 50 mg tablet RxNorm: 024501 TABLET(S) TAKE 2 TABLETS BY MOUTH EVERY NIGHT AT BEDTIME 09/18/2018 01/12/2019 Inactive ciprofloxacin 0.2 % ear drops in a dropperette RxNorm: 58303 6 2 Drop(s) left otic (ear) BID 09/03/2018 09/09/2018 Inactive primidone 50 mg tablet RxNorm: 531538 2 Tablet(s) PO BI D TAKE 2 TABLETS BY MOUTH EVERY NIGHT AT BEDTIME 08/26/2018 10/06/2018 Inactive Ambien 5 mg tablet RxNorm: 798564 TAKE 1 TABLET BY MOUTH EVERY NIGHT AT BEDTIME 08/05/2018 09/03/2018 Inactive Singulair 10 mg tablet RxNorm: 294697 1 TABLET(S) PO QD 07/23/2018 Inactive clonazepam 1 mg tablet RxNorm: 254446 TAKE 1 TABLET BY MOUTH EV SUSAN MORNING 07/23/2018 08/21/2018 Inactive Plavix 75 mg tablet RxNorm: 870728 1 TABLET(S) PO QD 07/04/201812/22 Inactive [SAVINGS FOR NON-COVERED DRUGS -- BIN:00 3585, PCN: ASPROD1, Group: XXXXX, ID# [id number], Questions: . THIS IS NOT INSURANCE.] clonazepam 1 mg tablet RxNorm: 616828 TAKE 1 TABLET BY MOUTH EV SUSAN MORNING 06/25/2018 07/23/2018 Inactive clonazepam 1 mg tablet RxNorm: 441646 TAKE 1 TABLET BY MOUTH EV SUSAN MORNING 05/23/2018 06/21/2018 Inactive primidone 50 mg tablet RxNorm: 542558 Tablet(s) TAKE 2 TABLETS BY MOUTH EVERY NIGHT AT BEDTIME 05/16/2018 08/25/2018 Inactive oxycodone-acetaminophen 7.5 mg-325 mg tablet RxNorm: 6154022 1-2 Tablet(s) PO TID as needed 04/25/2018 05/24/2018 Inactive Singulair 10 mg tablet RxNorm: 146488 1 Tablet(s) PO QD 04/25/2018 Inactive Medrol (Jose) 4 mg tablets in a dose pack RxNorm: 416033 Tablet(s) PO take as directed 04/25/2018 09/02/2018 Inactive clonazepam 1 mg tablet RxNorm: 115940 TAKE 1 TABLET BY MOUTH EV SUSAN MORNING 04/24/2018 05/22/2018 Inactive Plavix 75 mg tablet RxNorm: 951548 1 TABLET(S) PO QD 04/04/201807/02 Inactive [SAVINGS FOR NON-COVERED DRUGS -- BIN:00 3585, PCN: ASPROD1, Group: XXXXX, ID# [id number], Questions: . THIS IS NOT INSURANCE.] pravastatin 20 mg tablet RxNorm: 190784 1 Tablet(s) PO QD 03/21/2018 09/16/2018 Inactive ProAir HFA 90 mcg/actuation aerosol inhaler RxNorm: 819280 2 Puff(s) INH Q4H as needed 03/18/2018 03/17/2018 Inactive tamsulosin 0.4 mg capsule RxNorm: 769009 1 CAPSULE(S) PO QD 018 01/12/2019 Inactive clonazepam 1 mg tablet RxNorm: 036539 1 Tablet(s) PO QAM 02/25/2018 0 04/25/2018 Inactive tamsulosin 0.4 mg capsule RxNorm: 379384 1 Capsule(s) PO QD 018 03/13/2018 Inactive tamsulosin 0.4 mg capsule RxNorm: 161426 1 Capsule(s) PO QD 018 02/03/2018 Inactive tamsulosin 0.4 mg capsule RxNorm: 949476 1 Capsule(s) PO QD 018 02/12/2018 Inactive Ambien 5 mg tablet RxNorm: 856694 Tablet(s) TAKE 1 TAB LET BY MOUTH EVERY NIGHT AT BEDTIME 01/24/2018 08/05/2018 Inactive primidone 50 mg tablet RxNorm: 395903 Tablet(s) TAKE 2 TABLETS BY MOUTH EVERY NIGHT AT BEDTIME 01/18/2018 05/16/2018 Inactive cyclobenzaprine 10 mg tablet RxNorm: 702121 1 Tablet(s) PO TID as needed for muscle spasm 01/11/2018 02/09/2018 Inactive [SAVINGS FOR NON -COVERED DRUGS -- BIN:290150, PCN: ASPROD1, Group: XXXXX, ID# [id number], Questions: . THIS IS NOT INSURANCE.] clonazepam 1 mg tablet RxNorm: 227142 1 Tablet(s) PO QAM 12/24/2017 0 02/21/2018 Inactive EpiPen 2-Jose 0.3 mg/0.3 mL injection, auto-injector RxNorm: 837669 1 Unit Dose IM as needed 11/06/2017 No Stop Date Active prednisone 20 mg tablet RxNorm: 873988 1 Tablet(s) PO QD 11/06/2017 0 11/10/2017 Inactive ProAir HFA 90 mcg/actuation aerosol inhaler RxNorm: 838896 2 Puff(s) INH Q4H as needed 10/30/2017 03/17/2018 Inactive primidone 50 mg tablet RxNorm: 337822 TAKE 2 TABLETS BY MOUTH EVERY NIGHT AT BEDTIME 10/15/2017 01/17/2018 Inactive Plavix 75 mg tablet RxNorm: 211994 1 Tablet(s) PO QD 10/01/201703/29 Inactive [SAVINGS FOR NON-COVERED DRUGS -- BIN:00 3585, PCN: ASPROD1, Group: XXXXX, ID# [id number], Questions: . THIS IS NOT INSURANCE.] clonazepam 1 mg tablet RxNorm: 901210 1 Tablet(s) PO QAM 09/19/2017 0 12/16/2017 Inactive primidone 50 mg tablet RxNorm: 607955 2 Tablet(s) PO QHS 08/29/2017 0 01/18/2018 Inactive oxycodone-acetaminophen 7.5 mg-325 mg tablet RxNorm: 8034510 1-2 Tablet(s) PO TID as needed 08/22/2017 09/19/2017 Inactive pravastatin 20 mg tablet RxNorm: 321320 1 Tablet(s) PO QD 08/21/2017 03/21/2018 Inactive carvedilol 3.125 mg tablet RxNorm: 153843 1 Tablet(s) P O BID to replace 6.25mg dose 08/21/2017 09/02/2017 Inactive primidone 50 mg tablet RxNorm: 314284 TAKE 2 TABLETS BY MOUTH EVERY NIGHT AT BEDTIME 06/18/2017 08/28/2017 Inactive clonazepam 1 mg tablet RxNorm: 232723 1 Tablet(s) PO QAM 06/04/2017 1 11/02/2016 Inactive Plavix 75 mg tablet RxNorm: 024501 1 Tablet(s) PO QD 04/10/201710/01 Inactive [SAVINGS FOR NON-COVERED DRUGS -- BIN:00 3585, PCN: ASPROD1, Group: XXXXX, ID# [id number], Questions: . THIS IS NOT INSURANCE.] pravastatin 20 mg tablet RxNorm: 593796 1 Tablet(s) PO QD 02/26/2017 08/24/2017 Inactive carvedilol 3.125 mg tablet RxNorm: 410612 1 Tablet(s) P O BID to replace 6.25mg dose 02/26/2017 08/21/2017 Inactive Ultram 50 mg tablet RxNorm: 799386 TAKE 1 TO 2 TABLETS BY MOUTH THREE TIMES DAILY NEEDED FOR PAIN 02/26/2017 03/07/2017 Inactive pravastatin 20 mg tablet RxNorm: 738804 1 Tablet(s) PO QD 02/26/2017 08/21/2017 Inactive carvedilol 3.125 mg tablet RxNorm: 519538 1 Tablet(s) P O BID to replace 6.25mg dose 02/26/2017 08/20/2017 Inactive clonazepam 0.5 mg tablet RxNorm: 973232 1 Tablet(s) PO QAM 02/14/20 17 02/13/2017 Inactive primidone 50 mg tablet RxNorm: 969690 1 Tablet(s) PO QHS 02/13/2017 0 05/01/2017 Inactive clonazepam 1 mg tablet RxNorm: 767770 1 Tablet(s) PO QAM 02/13/2017 0 05/13/2017 Inactive primidone 50 mg tablet RxNorm: 585624 1/2 Tablet(s) PO QD for 7 days then increase to 1 tablet at bedtime 01/09/2017 02/12/2017 Inactive pravastatin 20 mg tablet RxNorm: 588774 Tablet(s) 1 TABLET(S) PO QD 11/29/2016 02/25/2017 Inactive clonazepam 1 mg tablet RxNorm: 210133 1 Tablet(s) PO BID replac es 0.5mg dose 11/23/2016 01/08/2017 Inactive pravastatin 20 mg tablet RxNorm: 773975 1 TABLET(S) PO QD 11/17/2016 11/28/2016 Inactive Ambien 5 mg tablet RxNorm: 099578 TAKE 1 TABLET BY MOUTH EVERY NIGHT AT BEDTIME 11/17/2016 12/14/2016 Inactive clonazepam 0.5 mg tablet RxNorm: 909885 TAKE 1 TABLET BY MOUTH TWICE DAILY 11/17/2016 11/22/2016 Inactive Plavix 75 mg tablet RxNorm: 422017 1 Tablet(s) PO QD 11/06/201604/09 Inactive [SAVINGS FOR NON-COVERED DRUGS -- BIN: 3585, PCN: ASPROD1, Group: XXXXX, ID# [id number], Questions: . THIS IS NOT INSURANCE.] Plavix 75 mg tablet RxNorm: 989120 1 Tablet(s) PO QD 08/28/201611/05 Inactive [SAVINGS FOR NON-COVERED DRUGS -- BIN: 3585, PCN: ASPROD1, Group: XXXXX, ID# [id number], Questions: . THIS IS NOT INSURANCE.] Lidoderm 5 % topical patch RxNorm: 0805093 Application T OP 2 patches for 12hrs then off for 12hrs 08/28/2016 08/27/2016 Inactive clonazepam 0.5 mg tablet RxNorm: 174182 1 Tablet(s) PO BID 08/07/20 16 11/22/2016 Inactive pravastatin 20 mg tablet RxNorm: 269635 1 Tablet(s) PO QD 08/07/2016 11/04/2016 Inactive cyclobenzaprine 10 mg tablet RxNorm: 856287 1 Tablet(s) PO TID as needed for muscle spasm 08/07/2016 09/05/2016 Inactive [SAVINGS FOR NON -COVERED DRUGS -- BIN:172670, PCN: ASPROD1, Group: XXXXX, ID# [id number], Questions: . THIS IS NOT INSURANCE.] Plavix 75 mg tablet RxNorm: 243025 1 Tablet(s) PO QD 08/07/201608/27 Inactive [SAVINGS FOR NON-COVERED DRUGS -- BIN:00 3585, PCN: ASPROD1, Group: XXXXX, ID# [id number], Questions: . THIS IS NOT INSURANCE.] carvedilol 3.125 mg tablet RxNorm: 918130 1 Tablet(s) P O BID to replace 6.25mg dose 08/07/2016 02/02/2017 Inactive clonazepam 0.5 mg tablet RxNorm: 827008 1 Tablet(s) PO BID 07/04/20 16 08/07/2016 Inactive Plavix 75 mg tablet RxNorm: 466452 1 TABLET(S) PO QD 06/20/201608/06 Inactive [SAVINGS FOR NON-COVERED DRUGS -- BIN:00 3585, PCN: ASPROD1, Group: XXXXX, ID# [id number], Questions: . THIS IS NOT INSURANCE.] clonazepam 0.5 mg tablet RxNorm: 047158 1 Tablet(s) PO BID 06/09/20 16 07/03/2016 Inactive pravastatin 20 mg tablet RxNorm: 840751 1 Tablet(s) PO QD 05/23/2016 08/06/2016 Inactive pravastatin 20 mg tablet RxNorm: 997262 1 Tablet(s) PO QD 05/23/2016 05/22/2016 Inactive carvedilol 3.125 mg tablet RxNorm: 213565 1 Tablet(s) P O BID to replace 6.25mg dose 05/10/2016 08/06/2016 Inactive carvedilol 3.125 mg tablet RxNorm: 898287 1 Tablet(s) P O BID to replace 6.25mg dose 05/10/2016 05/09/2016 Inactive clonazepam 0.5 mg tablet RxNorm: 708300 1 Tablet(s) PO BID 05/10/20 16 06/08/2016 Inactive carvedilol 6.25 mg tablet RxNorm: 665362 1 Tablet(s) PO QD 05/10/20 16 05/10/2016 Inactive simvastatin 40 mg tablet RxNorm: 016560 1 TABLET(S) PO QD 04/10/2016 05/09/2016 Inactive Medrol (Jose) 4 mg tablets in a dose pack RxNorm: 038749 Tablet(s) PO As Directed 01/13/2016 05/09/2016 Inactive cyclobenzaprine 10 mg tablet RxNorm: 199920 1 TABLET(S) PO TID NEEDED FOR SPASM 01/11/2016 03/10/2016 Inactive [SAVINGS FOR NON -COVERED DRUGS -- BIN:158403, PCN: ASPROD1, Group: XXXXX, ID# [id number], Questions: . THIS IS NOT INSURANCE.] Plavix 75 mg tablet RxNorm: 103698 1 Tablet(s) PO QD 12/30/201506/19 Inactive [SAVINGS FOR NON-COVERED DRUGS -- BIN: 3585, PCN: ASPROD1, Group: XXXXX, ID# [id number], Questions: . THIS IS NOT INSURANCE.] Ambien 5 mg tablet RxNorm: 585594 TAKE 1 TABLET BY MOUTH EVERY DAY AT BEDTIME 11/15/2015 11/17/2016 Inactive simvastatin 40 mg tablet RxNorm: 041717 1 Tablet(s) PO QD 10/11/2015 01/12/2019 Inactive simvastatin 40 mg tablet RxNorm: 653215 1 Tablet(s) PO QD 10/08/2015 10/10/2015 Inactive Ambien 5 mg tablet RxNorm: 164203 TAKE 1 TABLET BY MOUTH EVERY NIGHT AT BEDTIME 07/27/2015 11/15/2015 Inactive Plavix 75 mg tablet RxNorm: 914172 1 Tablet(s) PO QD 06/28/201512/29 Inactive [SAVINGS FOR NON-COVERED DRUGS -- BIN: 3585, PCN: ASPROD1, Group: XXXXX, ID# [id number], Questions: . THIS IS NOT INSURANCE.] Coreg 6.25 mg tablet RxNorm: 246423 1 TABLET(S) PO BID 04/19/2015 Inactive [SAVINGS FOR NON-COVERED DRUGS -- BIN:00 3585, PCN: ASPROD1, Group: XXXXX, ID# XXXXXXX, Questions: . THIS IS NOT INSURANCE.] simvastatin 40 mg tablet RxNorm: 969606 1 Tablet(s) PO QD 04/05/2015 04/04/2015 Inactive simvastatin 40 mg tablet RxNorm: 956706 1 Tablet(s) PO QD 04/05/2015 10/11/2015 Inactive Plavix 75 mg tablet RxNorm: 168251 1 TABLET(S) PO QD 03/22/201504/20 Inactive [SAVINGS FOR NON-COVERED DRUGS -- BIN:00 3585, PCN: ASPROD1, Group: XXXXX, ID# XXXXXXX, Questions: . THIS IS NOT INSURANCE.] Plavix 75 mg tablet RxNorm: 407041 1 Tablet(s) PO QD 03/22/201506/28 Inactive [SAVINGS FOR NON-COVERED DRUGS -- BIN:00 3585, PCN: ASPROD1, Group: XXXXX, ID# [id number], Questions: . THIS IS NOT INSURANCE.] Ambien 5 mg tablet RxNorm: 160305 1 Tablet(s) PO QHS 12/17/201407/28 Inactive [SAVINGS FOR NON-COVERED DRUGS -- BIN:00 3585, PCN: ASPROD1, Group: XXXXX, ID# [id number], Questions: . THIS IS NOT INSURANCE.] Coreg 6.25 mg tablet RxNorm: 541300 1 Tablet(s) PO BID 12/17/2014 Inactive [SAVINGS FOR NON-COVERED DRUGS -- BIN:00 3585, PCN: ASPROD1, Group: XXXXX, ID# XXXXXXX, Questions: . THIS IS NOT INSURANCE.] Plavix 75 mg tablet RxNorm: 907528 1 Tablet(s) PO QD 12/17/201403/16 Inactive [SAVINGS FOR NON-COVERED DRUGS -- BIN:00 3585, PCN: ASPROD1, Group: XXXXX, ID# XXXXXXX, Questions: . THIS IS NOT INSURANCE.] cyclobenzaprine 10 mg tablet RxNorm: 764758 1 Tablet(s) PO TID as needed for spasm 12/17/2014 03/16/2015 Inactive [SAVINGS FOR NON -COVERED DRUGS -- BIN:358361, PCN: ASPROD1, Group: XXXXX, ID# XXXXXXX, Questions: . THIS IS NOT INSURANCE.] Coreg 6.25 mg tablet RxNorm: 327839 1 Tablet(s) PO BID 10/21/201409/2014 Inactive [SAVINGS FOR NON-COVERED DRUGS -- BIN:00 3585, PCN: ASPROD1, Group: XXXXX, ID# XXXXXXX, Questions: . THIS IS NOT INSURANCE.] Plavix 75 mg tablet RxNorm: 664192 1 Tablet(s) PO QD 10/21/201412/16 Inactive [SAVINGS FOR NON-COVERED DRUGS -- BIN:00 3585, PCN: ASPROD1, Group: XXXXX, ID# XXXXXXX, Questions: . THIS IS NOT INSURANCE.] Plavix 75 mg tablet RxNorm: 275780 1 Tablet(s) PO QD Ne eds routine check up--last seen March 2012 09/21/2014 10/20/2014 Inactive [SAVINGS FOR UNINSURED PATIENTS -- BIN:251257, PCN: ASPROD1, Group: AME08, ID# [id number], Process claim through MedImpact, for questions: . THIS IS NOT INSURANCE.] Ambien 5 mg tablet RxNorm: 596869 1 Tablet(s) PO [facility] 09/21/201412/16 Inactive [SAVINGS FOR UNINSURED PATIENTS -- BIN:0 67544, PCN: ASPROD1, Group: AME08, ID# [id number], Process claim through MedImp[employer], for questions: . THIS IS NOT INSURANCE.] Coreg 6.25 mg tablet RxNorm: 609300 1 Tablet(s) PO BID 09/21/201411/2014 Inactive [SAVINGS FOR UNINSURED PATIENTS -- BIN:0 24542, PCN: ASPROD1, Group: AME08, ID# [id number], Process claim through [employer]Imp[employer], for questions: . THIS IS NOT INSURANCE.] Plavix 75 mg tablet RxNorm: 321172 1 Tablet(s) PO QD Ne eds routine check up--last seen March 2012 08/04/2014 09/02/2014 Inactive [SAVINGS FOR UNINSURED PATIENTS -- BIN:492534, PCN: ASPROD1, Group: AME08, ID# [id number], Process claim through [employer], for questions: . THIS IS NOT INSURANCE.] Plavix 75 mg tablet RxNorm: 252453 1 Tablet(s) PO QD Ne eds routine check up--last seen March 2012 08/03/2014 08/03/2014 Inactive Protonix 40 mg tablet,delayed release RxNorm: 422880 1 Tablet(s ) PO QD 06/08/2014 02/17/2019 Inactive [SAVINGS FOR UNINSUR ED PATIENTS -- BIN:964370, PCN: ASPROD1, Group: AME08, ID# [id number], Process claim through [employer], for questions: . THIS IS NOT INSURANCE.] hydrocodone 10 mg-acetaminophen 325 mg tablet RxNorm: 354016 1 Tablet(s) PO BID as needed for pain 02/18/2014 03/31/2015 Inactive Coreg 6.25 mg tablet RxNorm: 853346 1 Tablet(s) PO BID 02/02/2014 Inactive Protonix 40 mg granules delayed-release packet RxNorm: 282465 1 Tablet(s) PO QD 01/13/2014 06/08/2014 Inactive Plavix 75 mg tablet RxNorm: 042261 1 Tablet(s) PO QD Ne eds routine check up--last seen March 2012 01/13/2014 08/02/2014 Inactive Plavix 75 mg tablet RxNorm: 821376 1 Tablet(s) PO QD Ne eds routine check up--last seen March 2012 12/09/2013 01/07/2014 Inactive Coreg 6.25 mg tablet RxNorm: 051612 1 Tablet(s) PO BID 12/09/2013 Inactive Cymbalta 60 mg capsule,delayed release RxNorm: 934019 1 Capsule (s) PO QD 10/31/2013 01/12/2014 Inactive Coreg 6.25 mg tablet RxNorm: 998251 1 Tablet(s) PO BID 10/31/2013 Inactive Plavix 75 mg tablet RxNorm: 483085 1 Tablet(s) PO QD Ne eds routine check up--last seen March 2012 10/31/2013 11/29/2013 Inactive Coreg 6.25 mg tablet RxNorm: 095629 1 Tablet(s) PO BID 10/31/2013 Inactive atorvastatin 40 mg tablet RxNorm: 635559 1 Tablet(s) PO QD 10/31/19 14 03/31/2015 Inactive Plavix 75 mg tablet RxNorm: 175529 1 Tablet(s) PO QD Ne eds routine check up--last seen March 2012 09/23/2013 10/30/2013 Inactive cyclobenzaprine 10 mg tablet RxNorm: 719215 1 Tablet(s) PO TID as needed for spasm 09/23/2013 No Stop Date Active cyclobenzaprine 10 mg tablet RxNorm: 578118 1 Tablet(s) PO TID as needed for spasm 07/04/2013 09/22/2013 Inactive atorvastatin 40 mg tablet RxNorm: 475238 1 Tablet(s) PO QD 06/23/20 13 10/30/2013 Inactive atorvastatin 40 mg tablet RxNorm: 262012 1 Tablet(s) PO QD 04/22/20 13 06/22/2013 Inactive Nucynta 50 mg tablet RxNorm: 474992 1-2 Tablet(s) PO Q6H as nee ded for pain 01/01/2013 01/12/2014 Inactive Ambien 5 mg tablet RxNorm: 370562 1 Tablet(s) PO QHS 10/16/201201/13 Inactive Plavix 75 mg tablet RxNorm: 443877 1 Tablet(s) PO QD 09/19/201209/13 Inactive Protonix 40 mg tablet,delayed release RxNorm: 321844 1 Tablet(s ) PO QD 09/19/2012 09/18/2012 Inactive simvastatin 40 mg tablet RxNorm: 370116 1 Tablet(s) PO QD 09/19/2012 02/23/2013 Inactive Protonix 40 mg tablet,delayed release RxNorm: 636146 1 Tablet(s ) PO QD 09/19/2012 09/13/2013 Inactive Ultram 50 mg tablet RxNorm: 393850 1-2 Tablet(s) PO QID as need ed for pain 09/19/2012 02/26/2017 Inactive propranolol 80 mg tablet RxNorm: 131524 1 Tablet(s) PO QHS 09/19/19 13 09/18/2012 Inactive Cymbalta 60 mg capsule,delayed release RxNorm: 507340 1 Capsule (s) PO QD 09/19/2012 09/18/2012 Inactive Cymbalta 60 mg capsule,delayed release RxNorm: 984550 1 Capsule (s) PO QD 09/19/2012 03/17/2013 Inactive propranolol 80 mg tablet RxNorm: 114324 1 Tablet(s) PO QHS 09/19/19 13 02/23/2013 Inactive hydrocodone-acetaminophen 10 mg-325 mg tablet RxNorm: 106692 2 1-2 Tablet(s) PO QID 07/25/2012 02/23/2013 Inactive Ambien 10 mg tablet RxNorm: 528262 1 Tablet(s) PO QHS as needed for sleep 07/10/2012 01/27/2013 Inactive propranolol 80 mg tablet RxNorm: 003715 1 Tablet(s) PO QHS 05/13/20 12 09/18/2012 Inactive hydrocodone-acetaminophen 10 mg-325 mg tablet RxNorm: 673242 2 1-2 Tablet(s) PO QID 05/02/2012 No Stop Date Active Restoril 15 mg Cap RxNorm: 316356 1-2 Capsule(s) PO QHS 05/02/2012 Inactive propranolol 80 mg tablet RxNorm: 266946 1 Tablet(s) PO QHS 05/02/20 12 05/12/2012 Inactive Chantix Starting Month Box 0.5 mg (11)-1 mg (42) Tabs in a Dose Pack RxNorm: 418419 Tablet(s) PO As Directed 04/01/2012 01/27/2013 Inactive simvastatin 40 mg tablet RxNorm: 189302 1 Tablet(s) PO QD 03/28/2012 09/18/2012 Inactive simvastatin 40 mg Tab RxNorm: 765394 1 Tablet(s) PO QD 03/22/201207/2012 Inactive Effient 10 mg Tab RxNorm: 049826 1 Tablet(s) PO QD 03/22/2012 012 Inactive Prilosec 40 mg Capsule, delayed release RxNorm: 878430 1 Capsul e(s) PO QD 03/22/2012 09/18/2012 Inactive Prilosec 40 mg Capsule, delayed release RxNorm: 585250 1 Capsul e(s) PO QD 03/19/2012 03/21/2012 Inactive Cymbalta 60 mg capsule,delayed release RxNorm: 452831 1 Capsule (s) PO QD 03/04/2012 08/30/2012 Inactive hydrocodone-acetaminophen 10 mg-325 mg Tab RxNorm: 8221190 1-2 T ablet(s) PO QID 01/23/2012 No Stop Date Active Cymbalta 60 mg Capsule, delayed release RxNorm: 111701 1 Capsul e(s) PO QD 01/23/2012 03/03/2012 Inactive Cipro 500 mg Tab RxNorm: 976941 1 Tablet(s) PO BID 12/20/2011 012 Inactive Cymbalta 60 mg Capsule, delayed release RxNorm: 807196 1 Capsul e(s) PO QD 12/13/2011 01/22/2012 Inactive nortriptyline 75 mg Cap RxNorm: 680148 1 Capsule(s) PO QHS 11/29/1904/02/2012 Inactive Cymbalta 60 mg Cap RxNorm: 752803 1 Capsule(s) PO QD 10/24/201112/11 Inactive propranolol 80 mg Tab RxNorm: 001795 1 Tablet(s) PO QHS 10/24/2011 Inactive hydrocodone-acetaminophen 10 mg-325 mg Tab RxNorm: 1786817 1-2 T ablet(s) PO QID 09/29/2011 No Stop Date Active hydrocodone-acetaminophen 10 mg-325 mg Tab RxNorm: 8544262 1-2 T ablet(s) PO QID 07/25/2011 No Stop Date Active hydrocodone-acetaminophen 10 mg-325 mg Tab RxNorm: 0650613 1-2 T ablet(s) PO QID 02/14/2011 No Stop Date Active Prilosec 40 mg Cap RxNorm: 542818 1 Capsule(s) PO 01/03/2011 01/13/20 19 Inactive nortriptyline 75 mg Cap RxNorm: 210223 1 Capsule(s) PO QHS 01/04/20 11 07/01/2011 Inactive Neurontin 600 mg Tab RxNorm: 028505 1 Tablet(s) PO QHS 12/08/201011/2011 Inactive hydrocodone-acetaminophen 5 mg-500 mg Tab RxNorm: 353356 2 Tablet(s) PO Q4-6H prn 10/20/2010 01/08/2011 Inactive Diltzac ER 240 mg Cap RxNorm: 919663 1 Capsule(s) PO QD 07/14/2010 Inactive Nortriptyline 75 mg Cap RxNorm: 539573 1 Capsule(s) PO QHS 05/09/20 10 01/12/2019 Inactive Neurontin 600 mg Tab RxNorm: 127916 1 Tablet(s) PO QD 03/17/201012/17 Inactive Nortriptyline 75 mg Cap RxNorm: 801764 1 Capsule(s) PO 01/12/2010 Inactive Nortriptyline 50 mg Cap RxNorm: 087648 1 Capsule(s) PO QHS 01/13/20 10 01/11/2010 Inactive Diltzac ER 240 mg Cap RxNorm: 366115 1 Capsule(s) PO QD 12/06/2009 Inactive aspirin 81 mg Tab RxNorm: 173095 1 Tablet(s) PO QD No Start Date Active Vitamin D3 2,000 unit tablet RxNorm: 262914 1 Tablet(s) PO QD No Star t Date Active Lyrica 75 mg capsule RxNorm: 372552 1 Capsule(s) PO QHS No Start Date Active primidone 50 mg tablet RxNorm: 919403 2 Tablet(s) PO BID No Start Date Active Prilosec 40 mg Capsule, delayed release RxNorm: 402129 1 Capsul e(s) PO QD No Start Date 03/18/2012 Inactive Prilosec 20 mg Cap RxNorm: 621687 1 Capsule(s) PO QHS No Start Date 0 01/02/2011 Inactive primidone 50 mg tablet RxNorm: 565415 1/2 Tablet(s) PO QHS for 1week then go full tab if needed No Start Date 05/01/2017 Inactive ProAir HFA 90 mcg/actuation aerosol inhaler RxNorm: 878902 2 Puff(s) INH Q4H as needed No Start Date 10/29/2017 Inactive clonazepam 0.5 mg tablet RxNorm: 532306 1/2 Tablet(s) PO BID No Sta rt Date 02/12/2017 Inactive Pepcid AC 10 mg Tab RxNorm: 460417 1 Tablet(s) PO QAM No Start Date 0 02/19/2011 Inactive Coreg Oral RxNorm: Oral No Start Date 01/12/2014 Inactive primidone 50 mg tablet RxNorm: 856961 1/2 Tablet(s) PO QD for 7 days then increase to 1 tablet at bedtime No Start Date 01/08/2017 Inactive Medrol (Jose) 4 mg tablets in a dose pack RxNorm: 863504 Tablet(s) PO As Directed No Start Date 01/12/2016 Inactive Plavix 75 mg tablet RxNorm: 409872 1 Tablet(s) PO QD No Start Date Inactive cyclobenzaprine 10 mg tablet RxNorm: 431223 1 Tablet(s) PO TID as needed for spasm No Start Date 07/03/2013 Inactive Bevespi Aerosphere 9 mcg-4.8 mcg HFA aerosol inhaler RxNorm: 1813199 2 Puff(s) INH BID No Start Date 02/18/2019 Inactive tramadol 50 mg tablet RxNorm: 124213 1-2 Tablet(s) PO TID as ne eded for pain No Start Date 01/12/2019 Inactive clonazepam 1 mg tablet RxNorm: 240451 1 Tablet(s) PO QAM No Start D ate 09/18/2018 Inactive hydrocodone-acetaminophen 5 mg-500 mg Tab RxNorm: 957667 2 Tablet(s) PO Q4-6H prn No Start Date 10/19/2010 Inactive lisinopril 20 mg Tab RxNorm: 691024 1/2 Tablet(s) PO QD No Start Da te 03/12/2011 Inactive Protonix 40 mg tablet,delayed release RxNorm: 333990 1 Tablet(s ) PO QD No Start Date 06/07/2014 Inactive Lipitor Oral RxNorm: Oral No Start Date 01/12/2014 Inactive primidone 50 mg tablet RxNorm: 318829 2 Tablet(s) PO QAM and 1 tablet at HS No Start Date 02/17/2019 Inactive hydrocodone-acetaminophen 10 mg-325 mg Tab RxNorm: 9946873 1-2 T ablet(s) PO QID No Start Date 02/13/2011 Inactive Ultram 50 mg tablet RxNorm: 701309 1-2 Tablet(s) PO QID as need ed for pain No Start Date 09/18/2012 Inactive Effient 10 mg Tab RxNorm: 502900 1 Tablet(s) PO QD No Start Date 01/2012 Inactive Bevespi Aerosphere 9 mcg-4.8 mcg HFA aerosol inhaler RxNorm: 9838094 2 Puff(s) INH BID No Start Date 10/29/2017 Inactive Neurontin Oral RxNorm: Oral No Start Date 01/12/2010 Inactive primidone 50 mg tablet RxNorm: 274453 1 Tablet(s) PO QD No Start Da te 01/12/2019 Inactive Chantix Starting Month Box 0.5 mg (11)-1 mg (42) Tabs in a Dose Pack RxNorm: 109956 Tablet(s) PO No Start Date 03/31/2012 Inactive atenolol 25 mg Tab RxNorm: 381701 1 Tablet(s) PO QD No Start Date 02/2012 Inactive Neurontin 600 mg Tab RxNorm: 183062 1 Tablet(s) PO QD No Start Date 0 03/16/2010 Inactive Nucynta 50 mg tablet RxNorm: 986273 1-2 Tablet(s) PO Q6H as nee ded for pain No Start Date 12/31/2012 Inactive simvastatin 40 mg Tab RxNorm: 770613 1 Tablet(s) PO QD No Start Date 03/21/2012 Inactive Medication Administered No Medication Administered data Immunizations Vaccine Codes Date Status Influenza CVX: 135 07/04/2017 Complete Results Observation Observation Code Item Item Code Result Date S ervice Location COMPLETE BLOOD COUNT [id number] WBC 4.9 10e9/L 09/04/20 Unknown COMPLETE BLOOD COUNT [id number] RBC 4.42 10e12/L 2017 Unknown COMPLETE BLOOD COUNT [id number] HEMOGLOBIN 13.4 g/dL 09/04/20 Unknown COMPLETE BLOOD COUNT [id number] HEMATOCRIT 40.5 % 09/04/20 Unknown COMPLETE BLOOD COUNT [id number] MCV 91.6 fL 8 Unknown COMPLETE BLOOD COUNT [id number] MCH 30.3 pg 8 Unknown COMPLETE BLOOD COUNT [id number] MCHC 33.1 g/dL 8 Unknown COMPLETE BLOOD COUNT [id number] PLATELET COUNT 224 10e9/L Unknown COMPLETE BLOOD COUNT [id number] Mean Plt Volume 9.9 fL Unknown COMPLETE BLOOD COUNT 9772403 Neut Auto 60.8 % 8 Unknown COMPLETE BLOOD COUNT [id number] Lymph Auto 26.8 % 09/04/20 18 Unknown COMPLETE BLOOD COUNT [id number] [place] Auto 10.4 % 8 Unknown COMPLETE BLOOD COUNT [id number] RDW 12.8 % 8 Unknown COMPLETE BLOOD COUNT [id number] Eos Auto 1.6 % 8 Unknown COMPLETE BLOOD COUNT [id number] Baso Auto 0.4 % 8 Unknown COMPLETE BLOOD COUNT [id number] Neutrophil Abs 2.98 10e9/L Unknown COMPLETE BLOOD COUNT [id number] Lymphocyte Abs 1.31 10e9/L Unknown COMPLETE BLOOD COUNT [id number] Monocyte Abs 0.51 10e9/L 08/17 Unknown COMPLETE BLOOD COUNT [id number] Eosinophil Abs 0.08 10e9/L Unknown COMPLETE BLOOD COUNT [id number] Basophil Abs 0.02 10e9/L 08/17 Unknown COMPLETE BLOOD COUNT [id number] RDW-SD 41.6 fL 8 Unknown COMPREHENSIVE METABOLIC 01916 AST 16 U/L 2017 Unknown COMPREHENSIVE METABOLIC 24915 ALT 8 U/L 2017 Unknown COMPREHENSIVE METABOLIC 78466 BUN 12 mg/dL 2017 Unknown COMPREHENSIVE METABOLIC 16251 ALBUMIN 4.4 g/dL 2017 Unknown COMPREHENSIVE METABOLIC 95653 CHLORIDE 107 mmol/L 09/04 Unknown COMPREHENSIVE METABOLIC 99069 Bili Total 1.0 mg/dL 09/04 Unknown COMPREHENSIVE METABOLIC 53019 ALK PHOS 58 U/L 2017 Unknown COMPREHENSIVE METABOLIC 74089 SODIUM 142 mmol/L 09/04 Unknown COMPREHENSIVE METABOLIC 84592 CREATININE 0.97 mg/dL 08/17 Unknown COMPREHENSIVE METABOLIC 90847 CALCIUM 9.2 mg/dL 2017 Unknown COMPREHENSIVE METABOLIC 46691 POTASSIUM 4.6 mmol/L 09/04 Unknown COMPREHENSIVE METABOLIC 00637 Total Protein 6.5 g/dL Unknown COMPREHENSIVE METABOLIC 15798 Glucose 96 mg/dL 2017 Unknown COMPREHENSIVE METABOLIC 55283 Bicarbonate 29 mmol/L 08/17 Unknown COMPREHENSIVE METABOLIC 27937 AGAP 6 mmol/L 2017 Unknown LIPID GROUP 43094 Cholesterol 182 mg/dL 09/04/2018 Unkno wn LIPID GROUP 81895 Triglyceride 84 mg/dL 09/04/2018 Unkn own LIPID GROUP 95210 HDL CHOLESTEROL 76 mg/dL 09/04/2018 U nknown LIPID GROUP 44967 Chol/HDL Ratio 2.39 ratio 09/04/2018 U nknown LIPID GROUP 46514 NON-HDL Chol 106 mg/dL 09/04/2018 Unkn own LIPID GROUP 06117 LDL Cholesterol 89 mg/dL 09/04/2018 U nknown GFR CALC [id number] GFR Afr Amr >60 mL/min 09/04/2018 Unknow n GFR CALC 2905231 GFR Non Afr Amr >60 mL/min 09/04/2018 Un known THYROID STIMULATING HORMONE 62046 TSH 0.713 uIU/mL 09/04/2018 Unknown PSA EQUIMOLAR BARBIE 27893 PSA Total 0.66 ng/mL 8 Unknown A FOOD C P 0996553 [place] Cl Class 0 11/17/2017 Unknown A FOOD C P 0676505 [place] Ct <0.35 kU/L 11/17/2017 Unknow n A FOOD C P [id number] [place] Cl Class 0 11/17/2017 Unkn own A FOOD C P 9957972 [place] Ct <0.35 kU/L 11/17/2017 Unk nown A FOOD C P 6629993 [place] Cl Class 0 11/17/2017 Unkno wn A FOOD C P 4348644 Egg White Ct <0.35 kU/L 11/17/2017 Unkn own A FOOD C P 9613472 Egg Yolk Cl Class 0 11/17/2017 Unknow n A FOOD C P 4805079 Egg Yolk Ct <0.35 kU/L 11/17/2017 Unkno wn A FOOD C P 9053213 Cow Milk Cl Class 0 11/17/2017 Unknow n A FOOD C P 4864951 Cow Milk Ct <0.35 kU/L 11/17/2017 Unkno wn A FOOD C P 3468863 Peanut Cl Class 0 11/17/2017 Unknown A FOOD C P 7870957 Peanut Ct <0.35 kU/L 11/17/2017 Unknown A FOOD C P 5141433 [place] Cl Class 0 11/17/2017 Unknown A FOOD C P 2208825 [place] Ct <0.35 kU/L 11/17/2017 Unknown A FOOD C P 0070849 [place] Cl Class 0 11/17/2017 Unknown A FOOD C P [id number] [place] Ct <0.35 kU/L 11/17/2017 Unknow n A FOOD C P 3547217 [place] Cl Class 0 11/17/2017 Unknown A FOOD C P 2945539 Wheat Ct <0.35 kU/L 11/17/2017 Unknown A FOOD C P 3303603 Potato Cl Class 0 11/17/2017 Unknown A FOOD C P 4038199 Potato Ct <0.35 kU/L 11/17/2017 Unknown A FOOD C P 4358936 Beef Cl Class 2 11/17/2017 Unknown A FOOD C P 6938333 Beef Ct 0.88 kU/L 11/17/2017 Unknown A FOOD C P 4057177 [place] Cl Class 0 11/17/2017 Unknown A FOOD C P 5584474 [place] Ct <0.35 kU/L 11/17/2017 Unknown A FOOD C P 6370973 P[place] Cl Class 0 11/17/2017 Unknown A FOOD C P 5001884 [place] Ct <0.35 kU/L 11/17/2017 Unknown A FOOD C P 7774224 [place] Cl Class 0 11/17/2017 Unknown A FOOD C P 6689667 [place] Ct <0.35 kU/L 11/17/2017 Unknown A FOOD C P [id number] [place] Cl Class 0 11/17/2017 Unkn own A FOOD C P 9522897 [place] Ct <0.35 kU/L 11/17/2017 Unk nown A FOOD C P 1552685 [place] Cl Class 0 11/17/2017 Unknown A FOOD C P 6586133 [place] Ct <0.35 kU/L 11/17/2017 Unknown A FOOD C P 8088699 [place] Cl Class 0 11/17/2017 Unknown A FOOD C P 6445592 [place] Ct <0.35 kU/L 11/17/2017 Unknown A FOOD C P [id number] [place] CL Class 0 11/17/2017 Unknown A FOOD C P 7236424 [place] <0.35 kU/L 11/17/2017 Unknown A FOOD C P 3998205 [place] Cl Class 0 11/17/2017 Unknown A FOOD C P 5603339 [place] Ct <0.35 kU/L 11/17/2017 Unknown A FOOD C P 7152868 Oat Cl Class 0 11/17/2017 Unknown A FOOD C P 3179593 Oat Ct <0.35 kU/L 11/17/2017 Unknown A FOOD C P 5523861 [place] Cl Class 0 11/17/2017 Unknown A FOOD C P 0783205 [place] Ct <0.35 kU/L 11/17/2017 Unknown A FOOD C P 4232879 [place] CL Class 0 11/17/2017 Un known A FOOD C P 6243002 [place] Ct <0.35 kU/L 11/17/2017 U nknown A FOOD C P 6725888 [place] Cl Class 0 11/17/2017 Unknown A FOOD C P 1538241 [place] Ct <0.35 kU/L 11/17/2017 Unknown A FOOD C P 7208550 [place] Cl Class 0 11/17/2017 Unkn own A FOOD C P 7053929 [place] Ct <0.35 kU/L 11/17/2017 Unk nown A NUTS PNL 2097799 [place] Cl Class 0 11/17/2017 Unknown A NUTS PNL 6194845 [place] Ct <0.35 kU/L 11/17/2017 Unknown A NUTS PNL 9791735 [place] Meat Cl Class 0 11/17/2017 Unk nown A NUTS PNL 8391114 [place] [facility] <0.35 kU/L 11/17/2017 Un known A NUTS PNL 5407759 [place] Cl Class 0 11/17/2017 Unkn own A NUTS PNL 6174880 [place] Ct <0.35 kU/L 11/17/2017 Unk nown A NUTS PNL 6228734 [place] Cl Class 0 11/17/2017 Unknown A NUTS PNL 9935676 [place] [address] <0.35 kU/L 11/17/2017 Unknown A NUTS PNL 1616453 [place] Cl Class 0 11/17/2017 Unknow n A NUTS PNL 0542021 [place] Ct <0.35 kU/L 11/17/2017 Unkno wn A NUTS PNL 3511411 [place] Cl Class 0 11/17/2017 Unkno wn A NUTS PNL 9782511 [place] Ct <0.35 kU/L 11/17/2017 Unkn own A NUTS PNL 7193347 [place] Cl Class 0 11/17/2017 Unknown A NUTS PNL 8046993 [place] Ct <0.35 kU/L 11/17/2017 Unknown A NUTS PNL 6821202 [place] Cl Class 0 11/17/2017 Unkno wn A NUTS PNL 3293400 [place] Ct <0.35 kU/L 11/17/2017 Unkn own A NUTS PNL 4438461 Allergen Interp See Note 11/17/2017 Un known A FRT/VG P 9856514 [place] Cl Class 0 11/17/2017 Unkn own A FRT/VG P 1983440 [place] [facility] <0.35 kU/L 11/17/2017 Unk nown A FRT/VG P 1123411 [place] Cl Class 0 11/17/2017 Unknown A FRT/VG P 5939896 [place] Ct <0.35 kU/L 11/17/2017 Unknown A FRT/VG P [id number] [place] Cl Class 0 11/17/2017 Unkn own A FRT/VG P 4204015 [place] Ct <0.35 kU/L 11/17/2017 Unk nown A FRT/VG P 0570752 [place] Cl Class 0 11/17/2017 Unknown A FRT/VG P 3672857 [place] Ct <0.35 kU/L 11/17/2017 Unknown A FRT/VG P 9591238 [place] Cl Class 0 11/17/2017 Unknown A FRT/VG P 3958215 [place] [facility] <0.35 kU/L 11/17/2017 Unknown A FRT/VG P 8459479 [place] Cl Class 1 11/17/2017 Unknown A FRT/VG P 5784678 [place] Ct 0.48 kU/L 11/17/2017 Unknown A FRT/VG P 6698140 [place] Cl Class 0 11/17/2017 Unk nown A FRT/VG P 0211036 [place] Ct <0.35 kU/L 11/17/2017 Un known A FRT/VG P 8993363 [place] Cl Class 0 11/17/2017 Unk nown A FRT/VG P 0852376 [place] Ct <0.35 kU/L 11/17/2017 Un known A FRT/VG P 3207676 [place] Cl Class 0 11/17/2017 Unknown A FRT/VG P 3589015 [place] Ct <0.35 kU/L 11/17/2017 Unknown A FRT/VG P 8407557 [place] Cl Class 0 11/17/2017 Unknown A FRT/VG P 1814542 [place] Ct <0.35 kU/L 11/17/2017 Unknown A FRT/VG P 7229877 [place] Cl Class 0 11/17/2017 Unkn own A FRT/VG P [id number] [place] Ct <0.35 kU/L 11/17/2017 Unk nown A FRT/VG P 0675195 [place] Cl Class 0 11/17/2017 Unkn own A FRT/VG P 6450097 [place]t [place] Ct <0.35 kU/L 11/17/2017 Unk nown THYROID STIMULATING HORMONE 14026 TSH 1.371 uIU/mL 09/03/2017 Unknown FREE T4 57601 T4 Free 1.26 ng/dL 09/03/2017 Unknown ASSAY TRIIODOTHYRONINE (T3) 11415 T3 Total 0.9 ng/mL Unknown COMPLETE BLOOD COUNT [id number] WBC 5.9 10e9/L 07/31/20 17 Unknown COMPLETE BLOOD COUNT 1223137 RBC 4.64 10e12/L 2016 Unknown COMPLETE BLOOD COUNT 4181836 HEMOGLOBIN 14.2 g/dL 07/31/20 17 Unknown COMPLETE BLOOD COUNT 9911933 HEMATOCRIT 42.1 % 07/31/20 17 Unknown COMPLETE BLOOD COUNT 2854558 MCV 90.7 fL 7 Unknown COMPLETE BLOOD COUNT 1245950 MCH 30.6 pg 7 Unknown COMPLETE BLOOD COUNT 6673667 MCHC 33.7 g/dL 7 Unknown COMPLETE BLOOD COUNT 7988904 PLATELET COUNT 195 10e9/L Unknown COMPLETE BLOOD COUNT 5626761 Mean Plt Volume 10.0 fL Unknown COMPLETE BLOOD COUNT 2369826 Neut Auto 47.5 % 7 Unknown COMPLETE BLOOD COUNT 1332221 Lymph Auto 37.4 % 07/31/20 17 Unknown COMPLETE BLOOD COUNT 8836684 [place] Auto 11.7 % 7 Unknown COMPLETE BLOOD COUNT 4557393 RDW 12.8 % 7 Unknown COMPLETE BLOOD COUNT 0584892 Eos Auto 3.2 % 7 Unknown COMPLETE BLOOD COUNT 7319656 Baso Auto 0.2 % 7 Unknown COMPLETE BLOOD COUNT 9822566 Neutrophil Abs 2.80 10e9/L Unknown COMPLETE BLOOD COUNT 2145483 Lymphocyte Abs 2.21 10e9/L Unknown COMPLETE BLOOD COUNT [id number] Monocyte Abs 0.69 10e9/L 07/18 Unknown COMPLETE BLOOD COUNT 6139949 Eosinophil Abs 0.19 10e9/L Unknown COMPLETE BLOOD COUNT 3933190 RDW-SD 41.6 fL 7 Unknown COMPLETE BLOOD COUNT 1747070 Basophil Abs 0.01 10e9/L 07/18 Unknown LIPID GROUP 37109 Cholesterol 186 mg/dL 07/31/2017 Unkno wn LIPID GROUP 55789 Triglyceride 129 mg/dL 07/31/2017 Unkn own LIPID GROUP 60683 HDL CHOLESTEROL 79 mg/dL 07/31/2017 U nknown LIPID GROUP 78788 Chol/HDL Ratio 2.35 ratio 07/31/2017 U nknown LIPID GROUP 69739 NON-HDL Chol 107 mg/dL 07/31/2017 Unkn own LIPID GROUP 83625 LDL Cholesterol 81 mg/dL 07/31/2017 U nknown GFR CALC 0752012 GFR Non Afr Amr >60 mL/min 07/31/2017 Un known GFR CALC 2244458 GFR Afr Amr >60 mL/min 07/31/2017 Unknow n COMPREHENSIVE METABOLIC 06890 AST 19 U/L 2016 Unknown COMPREHENSIVE METABOLIC 46431 ALT 12 U/L 2016 Unknown COMPREHENSIVE METABOLIC 44901 BUN 15 mg/dL 2016 Unknown COMPREHENSIVE METABOLIC 90388 ALBUMIN 4.4 g/dL 2016 Unknown COMPREHENSIVE METABOLIC 61925 CHLORIDE 102 mmol/L 07/31 Unknown COMPREHENSIVE METABOLIC 82489 Bili Total 0.9 mg/dL 07/31 Unknown COMPREHENSIVE METABOLIC 42754 ALK PHOS 53 U/L 2016 Unknown COMPREHENSIVE METABOLIC 46461 SODIUM 138 mmol/L 07/31 Unknown COMPREHENSIVE METABOLIC 33172 CREATININE 1.06 mg/dL 07/18 Unknown COMPREHENSIVE METABOLIC 79079 CALCIUM 9.3 mg/dL 2016 Unknown COMPREHENSIVE METABOLIC 71593 POTASSIUM 4.0 mmol/L 07/31 Unknown COMPREHENSIVE METABOLIC 99930 Total Protein 6.8 g/dL Unknown COMPREHENSIVE METABOLIC 62742 Glucose 86 mg/dL 2016 Unknown COMPREHENSIVE METABOLIC 29734 Bicarbonate 28 mmol/L 07/18 Unknown COMPREHENSIVE METABOLIC 79386 AGAP 8 mmol/L 2016 Unknown COMPREHENSIVE METABOLIC 46937 AST 18 U/L 2015 Unknown COMPREHENSIVE METABOLIC 92562 ALT 9 U/L 2015 Unknown COMPREHENSIVE METABOLIC 24324 BUN 11 mg/dL 2015 Unknown COMPREHENSIVE METABOLIC 35121 ALBUMIN 4.2 g/dL 2015 Unknown COMPREHENSIVE METABOLIC 68423 CHLORIDE 104 mmol/L 05/19 Unknown COMPREHENSIVE METABOLIC 32801 Bili Total 1.2 mg/dL 05/19 Unknown COMPREHENSIVE METABOLIC 11569 ALK PHOS 54 U/L 2015 Unknown COMPREHENSIVE METABOLIC 66001 SODIUM 140 mmol/L 05/19 Unknown COMPREHENSIVE METABOLIC 50520 CREATININE 1.03 mg/dL 10/2015 Unknown COMPREHENSIVE METABOLIC 70887 CALCIUM 9.3 mg/dL 2015 Unknown COMPREHENSIVE METABOLIC 35971 POTASSIUM 4.9 mmol/L 05/19 Unknown COMPREHENSIVE METABOLIC 39304 Total Protein 6.7 g/dL Unknown COMPREHENSIVE METABOLIC 08488 Glucose 92 mg/dL 2015 Unknown COMPREHENSIVE METABOLIC 51167 Bicarbonate 28 mmol/L 10/2015 Unknown COMPREHENSIVE METABOLIC 16966 AGAP 8 mmol/L 2015 Unknown THYROID STIMULATING HORMONE 13932 TSH 1.545 uIU/mL 05/19/2016 Unknown GFR CALC 7245717 GFR Non Afr Amr >60 mL/min 05/19/2016 Un known GFR CALC 1758167 GFR Afr Amr >60 mL/min 05/19/2016 Unknow n VITAMIN B 12 42240 VITAMIN B12 298 pg/mL 05/19/2016 Unkn own COMPLETE BLOOD COUNT 4730582 WBC 5.2 10e9/L 05/19/20 16 Unknown COMPLETE BLOOD COUNT 6140977 RBC 4.34 10e12/L 2015 Unknown COMPLETE BLOOD COUNT 2734482 HEMOGLOBIN 12.9 g/dL 05/19/20 16 Unknown COMPLETE BLOOD COUNT 8649215 HEMATOCRIT 38.9 % 05/19/20 16 Unknown COMPLETE BLOOD COUNT 6627698 MCV 89.6 fL 6 Unknown COMPLETE BLOOD COUNT 3894600 MCH 29.7 pg 6 Unknown COMPLETE BLOOD COUNT 5773570 MCHC 33.2 g/dL 6 Unknown COMPLETE BLOOD COUNT 0915420 PLATELET COUNT 200 10e9/L 10/2015 Unknown COMPLETE BLOOD COUNT 8804539 Mean Plt Volume 10.1 fL 10/2015 Unknown COMPLETE BLOOD COUNT 6885352 Neut Auto 45.4 % 6 Unknown COMPLETE BLOOD COUNT 1353530 Lymph Auto 35.6 % 05/19/20 16 Unknown COMPLETE BLOOD COUNT 5333574 [place] Auto 11.9 % 6 Unknown COMPLETE BLOOD COUNT 7961770 RDW 12.7 % 6 Unknown COMPLETE BLOOD COUNT 5691545 Eos Auto 6.7 % 6 Unknown COMPLETE BLOOD COUNT 9554163 Baso Auto 0.4 % 6 Unknown COMPLETE BLOOD COUNT 0838375 Neutrophil Abs 2.36 10e9/L Unknown COMPLETE BLOOD COUNT 7822687 Lymphocyte Abs 1.85 10e9/L Unknown COMPLETE BLOOD COUNT 7123947 Monocyte Abs 0.62 10e9/L 10/2015 Unknown COMPLETE BLOOD COUNT 3523905 Eosinophil Abs 0.35 10e9/L Unknown COMPLETE BLOOD COUNT 9143180 RDW-SD 40.6 fL 6 Unknown COMPLETE BLOOD COUNT 3724661 Basophil Abs 0.02 10e9/L 10/2015 Unknown LIPID GROUP 68765 Cholesterol 197 mg/dL 05/19/2016 Unkno wn LIPID GROUP 52810 Triglyceride 92 mg/dL 05/19/2016 Unkn own LIPID GROUP 51965 HDL CHOLESTEROL 58 mg/dL 05/19/2016 U nknown LIPID GROUP 52248 Chol/HDL Ratio 3.40 ratio 05/19/2016 U nknown LIPID GROUP 43933 NON-HDL Chol 139 mg/dL 05/19/2016 Unkn own LIPID GROUP 88152 LDL Cholesterol 121 mg/dL 05/19/2016 U nknown FREE T4 41791 T4 Free 1.19 ng/dL 05/19/2016 Unknown COMPREHENSIVE METABOLIC 67022 AST 19 U/L 2014 Unknown COMPREHENSIVE METABOLIC 98173 ALT 10 IU/L 2014 Unknown COMPREHENSIVE METABOLIC 08254 BUN 20 MG/DL 2014 Unknown COMPREHENSIVE METABOLIC 68361 ALBUMIN 4.4 GM/DL 2014 Unknown COMPREHENSIVE METABOLIC 91072 CHLORIDE 104 MMOL/L 04/05 Unknown COMPREHENSIVE METABOLIC 28594 BILI TOT 2.2 MG/DL 2014 Unknown COMPREHENSIVE METABOLIC 19946 ALK PHOS 55 U/L 2014 Unknown COMPREHENSIVE METABOLIC 20614 SODIUM 138 MMOL/L 04/05 Unknown COMPREHENSIVE METABOLIC 91595 CREATININE 1.04 MG/DL 03/18 Unknown COMPREHENSIVE METABOLIC 80052 CALCIUM 9.3 MG/DL 2014 Unknown COMPREHENSIVE METABOLIC 45614 POTASSIUM 4.5 MMOL/L 04/05 Unknown COMPREHENSIVE METABOLIC 89648 PROT TOT 6.7 GM/DL 2014 Unknown COMPREHENSIVE METABOLIC 34806 Glucose 77 MG/DL 2014 Unknown COMPREHENSIVE METABOLIC 10761 BICARB 25 MMOL/L 2014 Unknown COMPREHENSIVE METABOLIC 15430 ANION GAP 9 MEQ/L 2014 Unknown GFR CALC 6358927 GFR AA >60 ML/MIN 04/05/2015 Unknown GFR CALC 5274743 GFR NON-AA >60 ML/MIN 04/05/2015 Unknown LIPID GROUP 06140 HDL TEST 60 MG/DL 04/05/2015 Unknown LIPID GROUP 60424 TRIG 70 MG/DL 04/05/2015 Unknown LIPID GROUP 35836 TEST LDL 137 MG/DL 04/05/2015 Unknown LIPID GROUP 20330 CHOL 211 MG/DL 04/05/2015 Unknown LIPID GROUP 02541 RCHOL/HDL 3.52 RATIO 04/05/2015 Unknow n LIPID GROUP 91196 NON-HDL CH 151 MG/DL 04/05/2015 Unknow n COMPLETE BLOOD COUNT 5611669 WBC 5.3 10e9/L 04/05/20 15 Unknown COMPLETE BLOOD COUNT 1264075 RBC 4.42 10e12/L 2014 Unknown COMPLETE BLOOD COUNT 4334891 HGB 13.4 g/dL 5 Unknown COMPLETE BLOOD COUNT 0395589 HCT DET 39.6 % 5 Unknown COMPLETE BLOOD COUNT 9941549 MCV 89.6 fL 5 Unknown COMPLETE BLOOD COUNT 2120655 MCH 30.3 pg 5 Unknown COMPLETE BLOOD COUNT 7474509 MCHC 33.8 g/dL 5 Unknown COMPLETE BLOOD COUNT 0934186 PLT 201 10e9/L 04/05/20 15 Unknown COMPLETE BLOOD COUNT 2581444 MPV 10.3 fL 5 Unknown COMPLETE BLOOD COUNT 3262448 LUPE % 56.4 % 5 Unknown COMPLETE BLOOD COUNT 0615869 LY % 24.8 % 5 Unknown COMPLETE BLOOD COUNT 4305804 MON % 12.8 % 5 Unknown COMPLETE BLOOD COUNT 6101122 EOS % 5.4 % 5 Unknown COMPLETE BLOOD COUNT 3166213 BASO % 0.6 % 5 Unknown COMPLETE BLOOD COUNT 6809531 RDW 13.2 % 5 Unknown COMPLETE BLOOD COUNT 9798846 ABS LUPE 2.99 10e9/L 015 Unknown COMPLETE BLOOD COUNT 5306322 ABS LYMPH 1.31 10e9/L 015 Unknown COMPLETE BLOOD COUNT 6586311 ABS MONO 0.68 10e9/L 015 Unknown COMPLETE BLOOD COUNT 0304529 ABS EOS 0.29 10e9/L 015 Unknown COMPLETE BLOOD COUNT 7412526 ABS BASO 0.03 10e9/L 015 Unknown COMPLETE BLOOD COUNT 6682297 RDW-SD 42.3 fL 5 Unknown LIPID GROUP 06087 HDL TEST 51 MG/DL 07/19/2012 Unknown LIPID GROUP 81737 TRIG 129 MG/DL 07/19/2012 Unknown LIPID GROUP 08446 TEST LDL 98 MG/DL 07/19/2012 Unknown LIPID GROUP 93018 CHOL 175 MG/DL 07/19/2012 Unknown LIPID GROUP 49514 RCHOL/HDL 3.43 RATIO 07/19/2012 Unknow n COMPREHENSIVE METABOLIC 63422 AST 18 U/L 2011 Unknown COMPREHENSIVE METABOLIC 29489 ALT 12 IU/L 2011 Unknown COMPREHENSIVE METABOLIC 08928 BUN 10 MG/DL 2011 Unknown COMPREHENSIVE METABOLIC 20530 ALBUMIN 4.1 GM/DL 2011 Unknown COMPREHENSIVE METABOLIC 31682 CHLORIDE 103 MMOL/L 07/19 Unknown COMPREHENSIVE METABOLIC 57998 BILI TOT 0.9 MG/DL 2011 Unknown COMPREHENSIVE METABOLIC 53671 ALK PHOS 62 U/L 2011 Unknown COMPREHENSIVE METABOLIC 64317 SODIUM 138 MMOL/L 07/19 Unknown COMPREHENSIVE METABOLIC 06351 CREATININE 1.08 MG/DL 10/2011 Unknown COMPREHENSIVE METABOLIC 58572 CALCIUM 9.1 MG/DL 2011 Unknown COMPREHENSIVE METABOLIC 99134 POTASSIUM 4.2 MMOL/L 07/19 Unknown COMPREHENSIVE METABOLIC 28151 PROT TOT 6.7 GM/DL 2011 Unknown COMPREHENSIVE METABOLIC 74682 Glucose 101 MG/DL 2011 Unknown COMPREHENSIVE METABOLIC 15085 BICARB 27 MMOL/L 2011 Unknown COMPREHENSIVE METABOLIC 19745 ANION GAP 8 MEQ/L 2011 Unknown GFR CALC 8478026 GFR AA >60 ML/MIN 07/19/2012 Unknown GFR CALC 6789651 GFR NON-AA >60 ML/MIN 07/19/2012 Unknown Procedures Procedure Codes Date THER/PROPH/DIAG INJ SC/IM CPT-4: 57982 01/13/2019 TRIAMCINOLONE ACET INJ NOS CPT-4: J3301 01/13/2019 DEXAMETHASONE SODIUM PHOS CPT-4: J1100 01/13/2019 ROUTINE VENIPUNCTURE CPT-4: 82281 09/04/2018 COMPREHEN METABOLIC PANEL CPT-4: 47420 09/04/2018 COMPLETE CBC W/AUTO DIFF WBC CPT-4: 14917 09/04/2018 LIPID PANEL CPT-4: 17773 09/04/2018 ASSAY OF PSA TOTAL CPT-4: 52915 09/04/2018 ASSAY THYROID STIM HORMONE CPT-4: 28362 09/04/2018 URINALYSIS NONAUTO W/O SCOPE CPT-4: 97571 05/15/2018 ROUTINE VENIPUNCTURE CPT-4: 41430 11/16/2017 A FRT/VG P CPT-4: 5949750 11/16/2017 A FOOD C P CPT-4: 1324802 11/16/2017 A NUTS PNL CPT-4: 6494329 11/16/2017 THER/PROPH/DIAG INJ SC/IM CPT-4: 28867 11/06/2017 TRIAMCINOLONE ACET INJ NOS CPT-4: J3301 11/06/2017 DEXAMETHASONE SODIUM PHOS CPT-4: J1100 11/06/2017 ROUTINE VENIPUNCTURE CPT-4: 25382 09/03/2017 ASSAY OF FREE THYROXINE CPT-4: 32958 09/03/2017 ASSAY THYROID STIM HORMONE CPT-4: 30853 09/03/2017 ASSAY TRIIODOTHYRONINE (T3) CPT-4: 04747 09/03/2017 ROUTINE VENIPUNCTURE CPT-4: 17233 07/31/2017 COMPREHEN METABOLIC PANEL CPT-4: 53679 07/31/2017 COMPLETE CBC W/AUTO DIFF WBC CPT-4: 71771 07/31/2017 LIPID PANEL CPT-4: 66014 07/31/2017 FLU VACC PRSV FREE INC ANTIG 65 AND OLDER CPT-4: 43895 07/04/2017 ADMIN INFLUENZA VIRUS VAC CPT-4: G0008 07/04/2017 ROUTINE VENIPUNCTURE CPT-4: 76876 02/26/2017 ASSAY THYROID STIM HORMONE CPT-4: 88217 02/26/2017 COMPREHEN METABOLIC PANEL CPT-4: 05843 02/26/2017 COMPLETE CBC W/AUTO DIFF WBC CPT-4: 49053 02/26/2017 LIPID PANEL CPT-4: 63762 02/26/2017 ASSAY OF PSA TOTAL CPT-4: 66180 02/26/2017 FLUZONE, 5ML (Medicare) CPT-4: Q2038 06/28/2016 ADMIN INFLUENZA VIRUS VAC CPT-4: G0008 06/28/2016 ROUTINE VENIPUNCTURE CPT-4: 80200 05/19/2016 ASSAY OF FREE THYROXINE CPT-4: 75244 05/19/2016 ASSAY THYROID STIM HORMONE CPT-4: 75521 05/19/2016 COMPREHEN METABOLIC PANEL CPT-4: 73032 05/19/2016 COMPLETE CBC W/AUTO DIFF WBC CPT-4: 48867 05/19/2016 LIPID PANEL CPT-4: 26166 05/19/2016 VITAMIN B-12 CPT-4: 92039 05/19/2016 PPPS, initial visit CPT-4: G0438 05/10/2016 ROUTINE VENIPUNCTURE CPT-4: 60398 04/05/2015 ASSAY THYROID STIM HORMONE CPT-4: 48823 04/05/2015 COMPREHEN METABOLIC PANEL CPT-4: 20910 04/05/2015 COMPLETE CBC W/AUTO DIFF WBC CPT-4: 52857 04/05/2015 LIPID PANEL CPT-4: 42850 04/05/2015 ASSAY OF PSA TOTAL CPT-4: 21513 04/05/2015 ROUTINE VENIPUNCTURE CPT-4: 67764 07/19/2012 COMPREHEN METABOLIC PANEL CPT-4: 40271 07/19/2012 LIPID PANEL CPT-4: 04601 07/19/2012 ELECTROCARDIOGRAM COMPLETE CPT-4: 47858 03/22/2012 Vital Signs Date Vital 05/26/2019 Blood Pressure 1: 112/62 Code: 8480-6 [...] 1: 102/60 Code: 8480-6 BMI: 19.1 Code: 35798-7 Heart Rate 1: 82 bpm Height: 5'11" Respiratory Rate: 22 bpm SpO2: 97% Tempera ture: 36.4 (C) / 97.6 (F) Weight: 137 lbs 04/25/2018 Blood Pressure 1: 118/64 Code: 8480-6 BMI: 19.2 Code: 29505-5 Heart Rate 1: 98 bpm Height: 5'11" Respiratory Rate: 20 bpm SpO2: 99% Tempera ture: 36.4 (C) / 97.6 (F) Weight: 138 lbs 11/06/2017 Blood Pressure 1: 108/68 Code: 8480-6 BMI: 18.5 Code: 55110-5 Heart Rate 1: 68 bpm Height: 5'11" Respiratory Rate: 20 bpm SpO2: 96% Tempera ture: 36.8 (C) / 98.2 (F) Weight: 133 lbs 09/03/2017 Blood Pressure 1: 122/64 Code: 8480-6 BMI: 17.6 Code: 07816-7 Heart Rate 1: 90 bpm Height: 5'11" Respiratory Rate: 20 bpm SpO2: 98% Tempera ture: 36.4 (C) / 97.6 (F) Weight: 126 lbs 08/21/2017 Blood Pressure 1: 114/80 Code: 8480-6 BMI: 17.9 Code: 75031-7 Heart Rate 1: 80 bpm Height: 5'11" Respiratory Rate: 20 bpm SpO2: 95% Tempera ture: 36.6 (C) / 97.9 (F) Weight: 128 lbs 02/13/2017 Blood Pressure 1: 122/60 Code: 8480-6 BMI: 18.5 Code: 11127-6 Heart Rate 1: 76 bpm Height: 5'11" Respiratory Rate: 20 bpm SpO2: 96% Tempera ture: 36.9 (C) / 98.4 (F) Weight: 133 lbs 11/23/2016 Blood Pressure 1: 126/70 Code: 8480-6 BMI: 18.5 Code: 19770-5 Heart Rate 1: 100 bpm Height: 5'11" Respiratory Rate: 20 bpm SpO2: 96% Tempera ture: 37.1 (C) / 98.8 (F) Weight: 133 lbs 05/23/2016 Blood Pressure 1: 128/82 Code: 8480-6 BMI: 18.5 Code: 15961-1 Heart Rate 1: 88 bpm Height: 5'11" Respiratory Rate: 20 bpm Temperature: 36 .7 (C) / 98.0 (F) Weight: 133 lbs 05/10/2016 Blood Pressure 1: 146/70 Code: 8480-6 BMI: 18.5 Code: 96019-9 Heart Rate 1: 84 bpm Height: 5'11" Respiratory Rate: 20 bpm Temperature: 36 .7 (C) / 98.1 (F) Weight: 133 lbs 04/01/2015 Blood Pressure 1: 102/60 Code: 8480-6 BMI: 18.5 Code: 36198-2 Heart Rate 1: 64 bpm Height: 5'11" Respiratory Rate: 20 bpm Temperature: 36 .8 (C) / 98.2 (F) Weight: 133 lbs 01/13/2014 Blood Pressure 1: 124/78 Code: 8480-6 BMI: 19.8 Code: 48277-3 Heart Rate 1: 76 bpm Height: 5'11" Respiratory Rate: 20 bpm Temperature: 36 .8 (C) / 98.2 (F) Weight: 142 lbs 04/03/2012 Blood Pressure 1: 106/76 Code: 8480-6 BMI: 20.9 Code: 55149-8 Heart Rate 1: 84 bpm Height: 5'11" Respiratory Rate: 20 bpm Temperature: 36 .7 (C) / 98.0 (F) Weight: 150 lbs 12/20/2011 Blood Pressure 1: 116/60 Code: 8480-6 BMI: 20.1 Code: 40786-0 Heart Rate 1: 80 bpm Height: 5'11" Respiratory Rate: 20 bpm Temperature: 36 .4 (C) / 97.6 (F) Weight: 144 lbs 10/24/2011 Blood Pressure 1: 132/74 Code: 8480-6 BMI: 19.7 Code: 74968-3 Heart Rate 1: 96 bpm Height: 5'11" [...] Visit Reason For Visit Effective Dates Notes follow up 05/26/2019 rectal bleeding follow up [...] 04/01/2015 follow up 01/13/2014 [facility] fw from [facility] in November 2012 lab draw 07/19/2012 follow up 04/03/2012 S/P stent placement in LAD, changed effient to plavix hip pain 12/20/2011 dyskinesia or tremor 10/24/2011 follow up 03/13/2011 started on effient, zocor, and atenolol follow up 02/20/2011 [facility] Fw/Dr Christian rojas follow up 02/23/2010 [facility], appt with Dr Bajwa 03/22/10 insomnia 01/12/2010 problems falling and staying asleep, takes nortriptyline Encounters Encounter Performer Location Codes Date ([id number]) OFFICE/OUTPATIENT VISIT EST Diagnosis: Noninfective gastroenteritis and colitis, unspecified[ICD10: K52.9] Diagnosis: Hemorrhage of anus and rectum[ICD10: K62.5] Vonnie MATHEWS DO [facility] CPT-4: 79682 05/26/2019 ([id number]) OFFICE/OUTPATIENT VISIT EST Diagnosis: Other intervertebral disc degeneration, 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] Diagnosis: Other forms of dyspnea[ICD10: R06.09] Vonnie MATHEWS DO [facility] CPT-4: 60122 03/17/2019 OFFICE/OUTPATIENT VISIT EST Diagnosis: Other intervertebral disc degeneration, 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] Diagnosis: Other symptoms and signs involving the musculoskeletal system[ICD10: R29.898] Vonnie MATHEWS DO [facility] CPT-4: 85786 02/18/2019 ([id number]) OFFICE/OUTPATIENT VISIT EST Diagnosis: Other allergic rhinitis[ICD10: J30.89] Akilah Lopez DOLLY MATHEWS [employer] CPT-4: 36462 01/13/2019 ([id number]) NURSE/OUTPATIENT VISIT EST Diagnosis: Mixed hyperlipidemia[ICD10: E78.2] Diagnosis: Essential (primary) hypertension[ICD10: I10] Diagnosis: Encounter for screening for malignant neoplasm of prostate[ICD10: Z12.5] Diagnosis: Encounter for general adult medical examination with abnormal findings[ICD10: Z00.01] Diagnosis: Benign prostatic hyperplasia without lower urinary tract symptoms[ICD10: N40.0] Vonnie MATHEWS [employer] CPT-4: 06764 09/04/2018 ([id number]) OFFICE/OUTPATIENT VISIT EST Diagnosis: Otorrhea, left ear[ICD10: H92.12] Diagnosis: Impacted cerumen, right ear[ICD10: H61.21] Verna MATHEWS [employer] CPT-4: 15556 09/03/2018 ([id number]) OFFICE/OUTPATIENT VISIT EST Diagnosis: Other intervertebral disc degeneration, 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] Diagnosis: Primary insomnia[ICD10: F51.01] Diagnosis: Essential tremor[ICD10: G25.0] Vonnie MATHEWS [employer] CPT-4: 02495 08/26/2018 ([id number]) OFFICE/OUTPATIENT VISIT EST Diagnosis: Pelvic and perineal pain[ICD10: R10.2] Verna Loza [facility] CPT-4: 93174 05/15/2018 ([id number]) OFFICE/OUTPATIENT VISIT EST Diagnosis: Encounter for therapeutic drug level monitoring[ICD10: Z51.81] Diagnosis: Acute sinusitis, unspecified[ICD10: J01.90] Diagnosis: Other intervertebral disc degeneration, 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] Diagnosis: Essential tremor[ICD10: G25.0] Diagnosis: Raynaud's syndrome without gangrene[ICD10: I73.00] Verna ASCENCIOLINE Denia [facility] CPT-4: 22200 04/25/2018 ([id number]) OFFICE/OUTPATIENT VISIT EST Diagnosis: Idiopathic urticaria[ICD10: L50.1] Diagnosis: Other urticaria[ICD10: L50.8] Vonnie COLMENARES [employer] [facility] CPT-4: 59402 11/16/2017 ([id number]) OFFICE/OUTPATIENT VISIT EST Diagnosis: Idiopathic urticaria[ICD10: L50.1] Diagnosis: Other urticaria[ICD10: L50.8] Diagnosis: Other forms of dyspnea[ICD10: R06.09] Vonnie RODGERS [employer] [facility] CPT-4: 66050 11/06/2017 ([id number]) OFFICE/OUTPATIENT VISIT EST Diagnosis: Dyspnea, unspecified[ICD10: R06.00] Diagnosis: Abnormal weight loss[ICD10: R63.4] Vonnie LUCIA [employer] CPT-4: 05341 09/03/2017 ([id number]) OFFICE/OUTPATIENT VISIT EST 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] Diagnosis: Mixed hyperlipidemia[ICD10: E78.2] Diagnosis: Essential tremor[ICD10: G25.0] Diagnosis: Essential (primary) hypertension[ICD10: I10] Diagnosis: Abnormal weight loss[ICD10: R63.4] Vonnie LUCIA [employer] CPT-4: 12204 08/21/2017 ([id number]) OFFICE/OUTPATIENT VISIT EST Diagnosis: Mixed hyperlipidemia[ICD10: E78.2] Diagnosis: Essential (primary) hypertension[ICD10: I10] 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] Diagnosis: Anemia, unspecified[ICD10: D64.9] Vonnie MATHEWS DO [facility] CPT-4: 10697 07/31/2017 ([id number]) OFFICE/OUTPATIENT VISIT EST Diagnosis: FLU VACCINE[ICD10: Z23] Vonnie [facility]MAN [facility] CPT-4: 74807 07/04/2017 ([id number]) OFFICE/OUTPATIENT VISIT EST Diagnosis: Mixed hyperlipidemia[ICD10: E78.2] Diagnosis: Essential tremor[ICD10: G25.0] 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] Diagnosis: Essential (primary) hypertension[ICD10: I10] Diagnosis: Supraventricular tachycardia[ICD10: I47.1] Diagnosis: Other fatigue[ICD10: R53.83] Diagnosis: Encounter for screening for malignant neoplasm of prostate[ICD10: Z12.5] Vonnie MATHEWS DO [facility] CPT-4: 60515 02/26/2017 ([id number]) OFFICE/OUTPATIENT VISIT EST Diagnosis: Essential tremor[ICD10: G25.0] Vonnie MATHEWS DO [facility] CPT-4: 18716 02/13/2017 ([id number]) OFFICE/OUTPATIENT VISIT EST Diagnosis: Essential tremor[ICD10: G25.0] Diagnosis: Other intervertebral disc degeneration, 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] Vonnie MATHEWS DO [facility] CPT-4: 80180 11/23/2016 ([id number]) OFFICE/OUTPATIENT VISIT EST Diagnosis: FLU VACCINE[ICD10: Z23] Vonniefabricio [facility] CPT-4: 84199 06/28/2016 OFFICE/OUTPATIENT VISIT EST Diagnosis: Open bite of right hand, initial encounter[ICD10: S61.451A] Vonnie MATHEWS [employer] CPT-4: 14419 05/23/2016 ([id number]) OFFICE/OUTPATIENT VISIT EST Diagnosis: Encounter for general adult medical examination with abnormal findings[ICD10: Z00.01] Diagnosis: Mixed hyperlipidemia[ICD10: E78.2] Diagnosis: Essential tremor[ICD10: G25.0] 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] Vonnie MAHTEWS [employer] CPT-4: 64094 05/19/2016 ([id number]) OFFICE/OUTPATIENT VISIT EST Diagnosis: HYPERLIPIDEMIA NEC/NOS[ICD9: 272.4] Diagnosis: CAD[ICD9: 414.00] Diagnosis: TACHYCARDIA[ICD9: 785.0] Diagnosis: HYPERTENSION[ICD9: 401.9] Diagnosis: Routine medical exam[ICD9: V70.0] Vonnie MATHEWS [facility] CPT-4: 08421 04/05/2015 ([id number]) OFFICE/OUTPATIENT VISIT EST Diagnosis: HYPERTENSION[ICD9: 401.9] Diagnosis: HYPERLIPIDEMIA NEC/NOS[ICD9: 272.4] Diagnosis: CAD[ICD9: 414.00] Diagnosis: LUMB/LUMBOSAC DISC DEGEN[ICD9: 722.52] Vonnie BOWMAN [employer] CPT-4: 25816 04/01/2015 ([id number]) OFFICE/OUTPATIENT VISIT EST Diagnosis: CHEST PAIN NOS[ICD9: 786.50] Diagnosis: PAIN IN THORACIC SPINE[ICD9: 724.1] Diagnosis: HYPERTENSION[ICD9: 401.9] Diagnosis: GERD[ICD9: 530.81] Vonnie MATHEWS [facility] CPT-4: 32421 01/13/2014 ([id number]) OFFICE/OUTPATIENT VISIT EST Diagnosis: CAD[ICD9: 414.00] Diagnosis: HYPERLIPIDEMIA NEC/NOS[ICD9: 272.4] Vonnie LAIBESSY ANNA Denia MATHEWS [employer] CPT-4: 67179 07/19/2012 ([id number]) OFFICE/OUTPATIENT VISIT EST Diagnosis: CAD[ICD9: 414.00] Diagnosis: INSOMNIA NOS[ICD9: 780.52] Vonnie JON YULISA DO [facility] CPT-4: 83342 04/03/2012 ([id number]) OFFICE/OUTPATIENT VISIT EST Diagnosis: CHEST PAIN NOS[ICD9: 786.50] Diagnosis: CAD[ICD9: 414.00] Vonnie SCHULTZNDER DO [facility] CPT-4: 82710 03/22/2012 ([id number]) OFFICE/OUTPATIENT VISIT EST Diagnosis: PROSTATITIS[ICD9: 601.9] Diagnosis: TREMOR NEC[ICD9: 333.1] Vonnie SCHULTZND ER DO [facility] CPT-4: 37720 12/20/2011 OFFICE/OUTPATIENT VISIT EST Diagnosis: TREMOR NEC[ICD9: 333.1] Diagnosis: TACHYCARDIA[ICD9: 785.0] Diagnosis: HYPERTENSION[ICD9: 401.9] Vonnie SCHULTZ NDER DO [facility] CPT-4: 50802 10/24/2011 OFFICE/OUTPATIENT VISIT EST Vonnie SCHULTZ NDER DO [facility] CPT- 4: 88283 03/13/2011 ([id number]) OFFICE/OUTPATIENT VISIT EST Vonnie GASPAR SKim SCHULTZNDER DO [facility] CPT-4: 50735 02/20/2011 ([id number]) OFFICE/OUTPATIENT VISIT, EST Vonnie SCHULTZNDER DO [facility] CPT-4: 39195 02/23/2010 ([id number]) OFFICE/OUTPATIENT VISIT, EST Vonnie Loza ORENDER DO [facility] CPT-4: 13585 01/12/2010 Plan of Care Planned Activity Notes Codes Status Date Visit Diagnosis Plan: Hemorrhage of anus and rectum Di scussion: Update colonoscopy ICD-9 : 569.3 ICD-10 : K62.5 05/26/2019 Visit Diagnosis Plan: Noninfective gastroenteritis and colitis, unspecified Discussion: Flagyl [place] diet Update colonoscopy ICD-9 : 558.9 ICD-10 : K52.9 05/26/2019 Appointment: Vonnie Mathews [facility]el[facility] [phone] [facility] [place] [place] record request faxed 05/23; ANGELINA with medical records 05/26/19 Hospital Follow Up 05/26/2019 Care Plan: Referral Order SNOMED-CT : 30 [id number] Pending 05/26/2019 Visit Diagnosis Plan: Other intervertebral disc degene ration, lumbar region Discussion: Increase lyrica to 150mg po q HS Continue stretches from PT [facility] Fwup after that appointment ICD-9 : 722.52 ICD-10 : M51.36 03/17/2019 Appointment: Vonnie Mathews WPtel: [address] [place], [place] [phone] [place] FOLLOW UP 03/17/2019 Visit Diagnosis Plan: [...] HS once CT scan results obtained [facility] Follow Up: 3 weeks ICD-9 : 722.52 ICD-10 : M51.36 02/18/2019 Appointment: Vonnie Mathews WPtel: [address] [place], [place] [phone] [place] FOLLOW UP 02/18/2019 Appointment: Vonnie Mathews WPtel: [address] [place], [place] [phone] [place] CANCELED 02/18/2019 Visit Diagnosis Plan: Other [...] ICD-10 : J30.89 01/13/2019 Appointment: Akilah Lopez [address] [place], [place] [id number] [place] Due for annual wellness ACUTE ILLNESS 01/14/20 Appointment: Vonnie Mathews WPtel: [address] [place] [address] [place] LAB 09/04/2018 Visit Diagnosis Plan: Otorrhea, [...] : H61.21 09/03/2018 Appointment: Verna Ramirez [address] ACUTE ILLNESS 09/03/2018 Visit Diagnosis Plan: [...] : G25.0 08/26/2018 Appointment: Vonnie Mathews WPtel: [phone] [place] [address] [place] FOLLOW UP 08/26/2018 Visit Diagnosis Plan: [...] : R10.2 05/15/2018 Appointment: [facility]a [id number] [facility] 05/15/2018 Patient Education: Patient Medication Summary Completed 05/15/2018 Care Plan: US EXAM PELVIC COMPLETE scrotal LOINC : 98775-7 Pending 05/15/2018 Visit Diagnosis Plan: Other intervertebral [...] : J01.90 04/25/2018 Appointment: Verna Ramirez [address] [facility] MEDICATION REVIEW 04/25/2018 Patient Education: Patient Medication Summary Completed 04/25/2018 Appointment: Vonnie Mathews WPtel: [phone] [facility] [place] 11/16/2017 Patient Education: Patient Medication Summary Completed [...] : L50.1 11/06/2017 Appointment: Vonnie Mathews WPtel: [address] [place] [address] FOLLOW UP 11/06/2017 Patient Education: Patient Medication [...] : R63.4 09/03/2017 Appointment: Vonnie Mathews WPtel: [address] [place] [address] FOLLOW UP 09/03/2017 Patient Education: Patient Medication Summary Completed 09/03/2017 Visit Diagnosis Plan: Mixed hyperlipidemia Discussion: Lab discussed ICD-9 : 272.4 ICD-10 : E78.2 08/21/2017 Visit Diagnosis Plan: Essential tremor Discussion: Sta ble on Primidone ICD-9 : 333.1 ICD-10 : G25.0 08/21/2017 Visit Diagnosis Plan: Atherosclerotic he art disease of sitka coronary artery without angina pectoris Discussion: Sees Cardiology in 2 days To ER if CP returns before ICD-9 : 414.00 ICD-10 : I25.10 08/21/2017 Visit Diagnosis Plan: Abnormal weight loss Discussion: Start daily protein shake or smoothie ICD-9 : 783.21 ICD-10 : R63.4 08/21/2017 Visit Diagnosis Plan: Essential (primary) hypertension Discussion: Stable ICD-9 : 401.9 ICD-10 : I10 08/21/2017 Appointment: Vonnie Mathews WPtel: [address] [place] [address] [place] FOLLOW UP 08/21/2017 Patient Education: Patient Medication Summary Completed 08/21/2017 Appointment: Vonnie Mathews WPtel: [address] [place] [address] US LAB 07/31/2017 Patient Education: Patient Medication Summary Completed 07/31/2017 Appointment: Vonnie Mathews WPtel: [address] [place] [address] US INJECTION 07/04/2017 Patient Education: Patient Medication Summary Completed 07/04/2017 Appointment: Vonnie Mathews WPtel: [address] [place] [address] US LAB 02/26/2017 Patient Education: Patient Medication Summary Completed 02/26/2017 Visit Diagnosis Plan: Essential tremor Discussion: Con tinue clonazepam at 1mg q AM and primidone 50mg q HS Follow Up: 3 months ICD-9 : 333.1 ICD-10 : G25.0 02/13/2017 Appointment: Vonnie Mathews WPtel: [address] [place] [address] 02/08 confirmed~sl FOLLOW UP 02/13/2017 Patient Education: Patient Medication Summary Completed 02/13/2017 Appointment: Vonnie Mathews WPtel: [address] [place] [address] [place] RESCHEDULED 01/23/2017 Visit Diagnosis Plan: Other intervertebral disc degene ration, lumbar region Discussion: DC oxycodone Tramadol 50mg 1-2 po TID prn pain Follow Up: 2 months ICD-9 : 722.52 ICD-10 : M51.36 11/23/2016 Visit Diagnosis Plan: Essential tremor Discussion: Inc rease clonazepam to 1mg po BID Discussed sinemet ICD-9 : 333.1 ICD-10 : G25.0 11/23/2016 Appointment: Vonnie Mathews WPtel: [phone] [facility] 3/ confirmed~sl MEDICATION REVIEW 11/23/2016 Patient Education: Patient Medication Summary Completed 11/23/2016 Patient Education: [facility] [employer] - Clonazepam - 18-64 - Dynamic Portal ID Completed 11/23/2016 Appointment: Vonnie Mathews WPtel: [phone] [facility] [place] INJECTION 06/28/2016 Patient Education: Patient Medication Summary Completed 06/28/2016 Referral: Fernando Day WPtel: #1 [facility] Gucci Stout [id number] [place] [id number] per Maribeth, the patient is [...] if worsening 05/23/2016 Appointment: Vonnie Mathews WPtel: [facility] [phone] ER Follow UP 05/23/2016 Patient Education: Patient Medication Summary Completed 05/23/2016 Appointment: Vonnie Mathews WPtel: [phone] [facility] [place] LAB 05/19/2016 Patient Education: Patient Medication Summary Completed 05/19/2016 Visit Plan: Change coreg to 3.125mg BID Trial of low dose clonazepam 0.5mg BID for tremors Fwup with Dr. Ramsey as scheduled Return for fasting lab--CBC, CMP, TSH, free T4, Lipids, PSA, B12 Proceed with Colonoscopy 05/10/2016 Appointment: Vonnie Mathews WPtel: [address] [place], [place] [address] 05/09 confirmed~sl Annual Well Visit 05/10/2016 Patient Education: Patient Medication Summary Completed 05/10/2016 Care Plan: Referral Order SNOMED-CT : 30 [id number] Pending 05/10/2016 Appointment: Vonnie Mathews WPtel: [address] [place], [place] [phone] [place] Rescheduled for 05/10/16 at 2PM~lb RESCHEDULED 04/26/2016 Referral: Danilo Ramsey WPtel: [phone] [id number] Referral Initiated 04/29/2015 Appointment: Vonnie Mathews WPtel: [address] [place], [place] [phone] [place] LAB 04/05/2015 Patient Education: Patient Medication Summary Completed 04/05/2015 Visit Plan: Return in AM for fasting lab --CMP, lipids, CBC, TSH, PSA Change hydrocodone to oxycodone 7.5/325mg 1-2 po TID Schedule with cardiology Needs colonoscopy once cardiology evaluation complete Will need to restart chol meds after lab Recheck 1mo on pain meds 04/01/2015 Appointment: Vonnie Mathews WPtel: [address] [place], [place] [phone] 03/31 confirmed -mf PHYSICAL 04/01/2015 Patient Education: Patient Medication Summary Completed 04/01/2015 Appointment: Vonnie Mathews WPtel: [address] [place], [place] [phone] Annual Well Visit 09/23/2014 Visit Plan: Continue protonix Pt has fwu p with Card next month Rec chiropracter or PT for ribs/thoracics being out and could be contributing to chest pain 01/13/2014 Appointment: Vonnie Mathews WPtel: [address] [place], [place] [phone] FOLLOW UP 01/13/2014 Patient Education: Patient Medication Summary Completed 01/13/2014 Appointment: Ariella Mcnally WPtel: [phone] [place], [place] [phone] FOLLOW UP 12/12/2013 Appointment: Malika Cárdenas WPtel: [phone] [place], [place] [phone] [place] PHYSICAL 12/12/2013 Appointment: Vonnie Mathews WPtel: [phone] [place], [place] [phone] ACUTE ILLNESS 02/20/2013 Appointment: Vonnie Mathews WPtel: [phone] [place], [place] [phone] LAB 07/19/2012 Patient Education: Patient Medication Summary Completed 07/19/2012 Appointment: Vonnie Mathews WPtel: [address] [place], [place] [phone] FOLLOW UP 04/03/2012 Patient Education: Patient Medication Summary Completed 04/03/2012 Appointment: Vonnei Mathews WPtel: [address] [place] [address] ACUTE ILLNESS 03/22/2012 Patient Education: Patient Medication Summary Completed 03/22/2012 Appointment: Vonnie Mathews WPtel: [address] [place], [place] [phone] FOLLOW UP 12/26/2011 Visit Plan: Add Cipro Continue current m eds 12/20/2011 Appointment: Vonnie Mathews WPtel: [address] [place], [place] [phone] ACUTE ILLNESS 12/20/2011 Patient Education: Patient Medication Summary Completed 12/20/2011 Visit Plan: Change neurontin to Cymbalta 30mg for 1wk then 60mg QD Add Propranolol for tremor 10/24/2011 Appointment: Vonnie Mathews WPtel: [address] [place], [place] [phone] ACUTE ILLNESS 10/24/2011 Appointment: Vonnie Mathewsl: [address] [place], [place] [phone] ACUTE ILLNESS 10/24/2011 Patient Education: Patient Medication Summary Completed 10/24/2011 Visit Plan: Continue current meds and fw up with Card as scheduled 03/13/2011 Appointment: Vonnie Mathews WPtel: [address] [place], [place] [phone] FOLLOW UP 03/13/2011 Patient Education: Patient Medication Summary Completed 03/13/2011 Visit Plan: Will obtain all records and lab from Guillaume Discussed will likely need heart cath which pt states that Card did talk to him about in the hospital 02/20/2011 Appointment: Vonnie Mathews WPtel: [address] [place], [place] [phone] ACUTE ILLNESS 02/20/2011 Patient Education: Patient Medication Summary Completed 02/20/2011 Visit Plan: Cont Pepcid and Prilosec See Card for cardiac cath. 02/23/2010 Appointment: Vonnie Mathews WPtel: [address] [place], [place] [phone] FOLLOW UP 02/23/2010 Patient Education: Patient Medication Summary Completed 02/23/2010 Visit Plan: Increase Pamelor to 75mg qhs Increase Hydrocodone to 10/325mg 1-2 po q6 prn 01/12/2010 Appointment: Vonnie Mathews WPtel: [address] [place], [place] [phone] ACUTE ILLNESS 01/12/2010 Patient Education: Patient Medication Summary Completed 01/12/2010 Referral: Iván Pardo WPtel: [facility] [address] Referral Initiated Referral: Fernando Day WPtel: #1 [facility] [place] Referral Completed Referral: Fernando Day WPtel: #1 [facility] [place] Referral Appointment Requested Instructions Comment . [...]
--- OUTSIDE RECORDS SUMMARY | 2020-02-10 08:34 | XMS REPORT | CCD ---
Author Author Nash Mathews D.O. Organization [facility] Address [address] [place] [address] Phone Care Team Providers Care Registered Respiratory Technician Name Role Phone Vonnie Mathews D.O., PP Unavailable CCM Unavailable Summary Purpose Interface Exchange Insurance Providers Payer name Policy type / Coverage type Covered alliance party ID Effective Begin Date Effective End Date [employer] MEDIC[place] B [place] Part B [id number] 2018 Unknown Family History Family History data not found Social History Social History Element Codes Description Effective Dates Marital status Unknown 10/24/[address]: 364706067 Nonsmoker 03/29/2011 Allergies, Adverse Reactions, Alerts Substance [...] R63.4 08/21/2017 Active 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: [...] Fill Instructions clonazepam 1 mg tablet RxNorm: 670896 TAKE 1 TABLET BY MOUTH EV SUSAN AM 09/23/2019 10/22/2019 Active clonazepam 1 mg tablet RxNorm: 417293 TAKE 1 TABLET BY MOUTH EV SUSAN AM 08/21/2019 09/22/2019 Inactive Singulair 10 mg tablet RxNorm: 544450 TABLET(S) 1 TABLET(S) PO QD 1 10/11/2019 Active Flagyl 500 mg tablet RxNorm: 557392 1 Tablet(s) PO TID 05/26/2019 Inactive clonazepam 1 mg tablet RxNorm: 893145 TAKE 1 TABLET BY MOUTH EV SUSAN MORNING 05/23/2019 06/21/2019 Inactive pravastatin 20 mg tablet RxNorm: 923308 1 Tablet(s) PO QD 04/14/2019 10/10/2019 Active Needs updated fasting labs Singulair 10 mg tablet RxNorm: 718566 Tablet(s) 1 TABLET(S) PO QD 0 04/14/2019 07/12/2019 Inactive clonazepam 1 mg tablet RxNorm: 989982 1 Tablet(s) PO QAM 02/21/2019 0 05/23/2019 Inactive Bevespi Aerosphere 9 mcg-4.8 mcg HFA aerosol inhaler RxNorm: 4564213 2 Puff(s) INH BID 02/19/2019 No Stop Date Active ProAir HFA 90 mcg/actuation aerosol inhaler RxNorm: 285451 2 Puff(s) INH Q4H as needed 02/19/2019 09/24/2019 Inactive metoprolol tartrate 25 mg tablet RxNorm: 460482 1/2 Tablet(s) PO BI D 02/18/2019 05/18/2019 Inactive pravastatin 20 mg tablet RxNorm: 915095 1 Tablet(s) PO QD Needs updated fasting labs 01/13/2019 04/14/2019 Inactive Needs updated fa sting labs Singulair 10 mg tablet RxNorm: 298385 Tablet(s) 1 TABLET(S) PO QD 0 01/13/2019 04/12/2019 Inactive Plavix 75 mg tablet RxNorm: 818025 Tablet(s) 1 TABLET(S) PO QD 04/201906/20/2019 Inactive [SAVINGS FOR NON-COVERED SHANDA -- BIN:593653, PCN: ASPROD1, Group: XXXXX, ID# [id number], Questions: . THIS IS NOT INSURANCE.] Singulair 10 mg tablet RxNorm: 558005 1 TABLET(S) PO QD 10/29/2018 Inactive primidone 50 mg tablet RxNorm: 723610 2 TABLET(S) PO BI D TAKE 2 TABLETS BY MOUTH EVERY NIGHT AT BEDTIME 10/07/2018 01/12/2019 Inactive Patient requests 90 days supply pravastatin 20 mg tablet RxNorm: 652768 1 TABLET(S) PO QD 09/23/2018 01/12/2019 Inactive clonazepam 1 mg tablet RxNorm: 721543 1 Tablet(s) PO QAM 09/19/2018 0 12/17/2018 Inactive primidone 50 mg tablet RxNorm: 989329 TABLET(S) TAKE 2 TABLETS BY MOUTH EVERY NIGHT AT BEDTIME 09/18/2018 01/12/2019 Inactive ciprofloxacin 0.2 % ear drops in a dropperette RxNorm: 66452 6 2 Drop(s) left otic (ear) BID 09/03/2018 09/09/2018 Inactive primidone 50 mg tablet RxNorm: 633430 2 Tablet(s) PO BI D TAKE 2 TABLETS BY MOUTH EVERY NIGHT AT BEDTIME 08/26/2018 10/06/2018 Inactive Ambien 5 mg tablet RxNorm: 879700 TAKE 1 TABLET BY MOUTH EVERY NIGHT AT BEDTIME 08/05/2018 09/03/2018 Inactive Singulair 10 mg tablet RxNorm: 760824 1 TABLET(S) PO QD 07/23/2018 Inactive clonazepam 1 mg tablet RxNorm: 027784 TAKE 1 TABLET BY MOUTH EV SUSAN MORNING 07/23/2018 08/21/2018 Inactive Plavix 75 mg tablet RxNorm: 439294 1 TABLET(S) PO QD 07/04/201812/22 Inactive [SAVINGS FOR NON-COVERED DRUGS -- BIN:00 3585, PCN: ASPROD1, Group: XXXXX, ID# [id number], Questions: . THIS IS NOT INSURANCE.] clonazepam 1 mg tablet RxNorm: 038400 TAKE 1 TABLET BY MOUTH EV SUSAN MORNING 06/25/2018 07/23/2018 Inactive clonazepam 1 mg tablet RxNorm: 240695 TAKE 1 TABLET BY MOUTH EV SUSAN MORNING 05/23/2018 06/21/2018 Inactive primidone 50 mg tablet RxNorm: 755466 Tablet(s) TAKE 2 TABLETS BY MOUTH EVERY NIGHT AT BEDTIME 05/16/2018 08/25/2018 Inactive oxycodone-acetaminophen 7.5 mg-325 mg tablet RxNorm: 3446414 1-2 Tablet(s) PO TID as needed 04/25/2018 05/24/2018 Inactive Singulair 10 mg tablet RxNorm: 758572 1 Tablet(s) PO QD 04/25/2018 Inactive Medrol (Jose) 4 mg tablets in a dose pack RxNorm: 469453 Tablet(s) PO take as directed 04/25/2018 09/02/2018 Inactive clonazepam 1 mg tablet RxNorm: 753712 TAKE 1 TABLET BY MOUTH EV SUSAN MORNING 04/24/2018 05/22/2018 Inactive Plavix 75 mg tablet RxNorm: 531378 1 TABLET(S) PO QD 04/04/201807/02 Inactive [SAVINGS FOR NON-COVERED DRUGS -- BIN:00 3589, PCN: ASPROD1, Group: XXXXX, ID# [id number], Questions: . THIS IS NOT INSURANCE.] pravastatin 20 mg tablet RxNorm: 876830 1 Tablet(s) PO QD 03/21/2018 09/16/2018 Inactive ProAir HFA 90 mcg/actuation aerosol inhaler RxNorm: 595540 2 Puff(s) INH Q4H as needed 03/18/2018 03/17/2018 Inactive tamsulosin 0.4 mg capsule RxNorm: 112243 1 CAPSULE(S) PO QD 018 01/12/2019 Inactive clonazepam 1 mg tablet RxNorm: 381831 1 Tablet(s) PO QAM 02/25/2018 0 04/25/2018 Inactive tamsulosin 0.4 mg capsule RxNorm: 391593 1 Capsule(s) PO QD 018 03/13/2018 Inactive tamsulosin 0.4 mg capsule RxNorm: 243369 1 Capsule(s) PO QD 018 02/03/2018 Inactive tamsulosin 0.4 mg capsule RxNorm: 571439 1 Capsule(s) PO QD 018 02/12/2018 Inactive Ambien 5 mg tablet RxNorm: 029263 Tablet(s) TAKE 1 TAB LET BY MOUTH EVERY NIGHT AT BEDTIME 01/24/2018 08/05/2018 Inactive primidone 50 mg tablet RxNorm: 269489 Tablet(s) TAKE 2 TABLETS BY MOUTH EVERY NIGHT AT BEDTIME 01/18/2018 05/16/2018 Inactive cyclobenzaprine 10 mg tablet RxNorm: 123492 1 Tablet(s) PO TID as needed for muscle spasm 01/11/2018 02/09/2018 Inactive [SAVINGS FOR NON -COVERED DRUGS -- BIN:435346, PCN: ASPROD1, Group: XXXXX, ID# [id number], Questions: . THIS IS NOT INSURANCE.] clonazepam 1 mg tablet RxNorm: 257314 1 Tablet(s) PO QAM 12/24/2017 0 02/21/2018 Inactive prednisone 20 mg tablet RxNorm: 318608 1 Tablet(s) PO QD 11/06/2017 0 11/10/2017 Inactive EpiPen 2-Jose 0.3 mg/0.3 mL injection, auto-injector RxNorm: 886650 1 Unit Dose IM as needed 11/06/2017 09/24/2019 Inactive ProAir HFA 90 mcg/actuation aerosol inhaler RxNorm: 920240 2 Puff(s) INH Q4H as needed 10/30/2017 03/17/2018 Inactive primidone 50 mg tablet RxNorm: 494060 TAKE 2 TABLETS BY MOUTH EVERY NIGHT AT BEDTIME 10/15/2017 01/17/2018 Inactive Plavix 75 mg tablet RxNorm: 046559 1 Tablet(s) PO QD 10/01/201703/29 Inactive [SAVINGS FOR NON-COVERED DRUGS -- BIN:00 3585, PCN: ASPROD1, Group: XXXXX, ID# [id number], Questions: . THIS IS NOT INSURANCE.] clonazepam 1 mg tablet RxNorm: 015168 1 Tablet(s) PO QAM 09/19/2017 0 12/16/2017 Inactive primidone 50 mg tablet RxNorm: 967977 2 Tablet(s) PO QHS 08/29/2017 0 01/18/2018 Inactive oxycodone-acetaminophen 7.5 mg-325 mg tablet RxNorm: 5100117 1-2 Tablet(s) PO TID as needed 08/22/2017 09/19/2017 Inactive pravastatin 20 mg tablet RxNorm: 536867 1 Tablet(s) PO QD 08/21/2017 03/21/2018 Inactive carvedilol 3.125 mg tablet RxNorm: 697341 1 Tablet(s) P O BID to replace 6.25mg dose 08/21/2017 09/02/2017 Inactive primidone 50 mg tablet RxNorm: 943522 TAKE 2 TABLETS BY MOUTH EVERY NIGHT AT BEDTIME 06/18/2017 08/28/2017 Inactive clonazepam 1 mg tablet RxNorm: 955954 1 Tablet(s) PO QAM 06/04/2017 1 11/02/2016 Inactive Plavix 75 mg tablet RxNorm: 614081 1 Tablet(s) PO QD 04/10/201710/01 Inactive [SAVINGS FOR NON-COVERED DRUGS -- BIN:00 3585, PCN: ASPROD1, Group: XXXXX, ID# [id number], Questions: . THIS IS NOT INSURANCE.] pravastatin 20 mg tablet RxNorm: 537479 1 Tablet(s) PO QD 02/26/2017 08/24/2017 Inactive carvedilol 3.125 mg tablet RxNorm: 513163 1 Tablet(s) P O BID to replace 6.25mg dose 02/26/2017 08/21/2017 Inactive Ultram 50 mg tablet RxNorm: 113162 TAKE 1 TO 2 TABLETS BY MOUTH THREE TIMES DAILY NEEDED FOR PAIN 02/26/2017 03/07/2017 Inactive pravastatin 20 mg tablet RxNorm: 113962 1 Tablet(s) PO QD 02/26/2017 08/21/2017 Inactive carvedilol 3.125 mg tablet RxNorm: 939660 1 Tablet(s) P O BID to replace 6.25mg dose 02/26/2017 08/20/2017 Inactive clonazepam 0.5 mg tablet RxNorm: 975380 1 Tablet(s) PO QAM 02/14/20 17 02/13/2017 Inactive primidone 50 mg tablet RxNorm: 467167 1 Tablet(s) PO QHS 02/13/2017 0 05/01/2017 Inactive clonazepam 1 mg tablet RxNorm: 980229 1 Tablet(s) PO QAM 02/13/2017 0 05/13/2017 Inactive primidone 50 mg tablet RxNorm: 774219 1/2 Tablet(s) PO QD for 7 days then increase to 1 tablet at bedtime 01/09/2017 02/12/2017 Inactive pravastatin 20 mg tablet RxNorm: 814405 Tablet(s) 1 TABLET(S) PO QD 11/29/2016 02/25/2017 Inactive clonazepam 1 mg tablet RxNorm: 519815 1 Tablet(s) PO BID replac es 0.5mg dose 11/23/2016 01/08/2017 Inactive pravastatin 20 mg tablet RxNorm: 430843 1 TABLET(S) PO QD 11/17/2016 11/28/2016 Inactive Ambien 5 mg tablet RxNorm: 718745 TAKE 1 TABLET BY MOUTH EVERY NIGHT AT BEDTIME 11/17/2016 12/14/2016 Inactive clonazepam 0.5 mg tablet RxNorm: 438061 TAKE 1 TABLET BY MOUTH TWICE DAILY 11/17/2016 11/22/2016 Inactive Plavix 75 mg tablet RxNorm: 815775 1 Tablet(s) PO QD 11/06/201604/09 Inactive [SAVINGS FOR NON-COVERED DRUGS -- BIN:00 3585, PCN: ASPROD1, Group: XXXXX, ID# [id number], Questions: . THIS IS NOT INSURANCE.] Plavix 75 mg tablet RxNorm: 173901 1 Tablet(s) PO QD 08/28/201611/05 Inactive [SAVINGS FOR NON-COVERED DRUGS -- BIN: 3585, PCN: ASPROD1, Group: XXXXX, ID# [id number], Questions: . THIS IS NOT INSURANCE.] Lidoderm 5 % topical patch RxNorm: 2610305 Application T OP 2 patches for 12hrs then off for 12hrs 08/28/2016 08/27/2016 Inactive clonazepam 0.5 mg tablet RxNorm: 863137 1 Tablet(s) PO BID 08/07/20 16 11/22/2016 Inactive pravastatin 20 mg tablet RxNorm: 369992 1 Tablet(s) PO QD 08/07/2016 11/04/2016 Inactive cyclobenzaprine 10 mg tablet RxNorm: 100117 1 Tablet(s) PO TID as needed for muscle spasm 08/07/2016 09/05/2016 Inactive [SAVINGS FOR NON -COVERED DRUGS -- BIN:639880, PCN: ASPROD1, Group: XXXXX, ID# [id number], Questions: . THIS IS NOT INSURANCE.] Plavix 75 mg tablet RxNorm: 302198 1 Tablet(s) PO QD 08/07/201608/27 Inactive [SAVINGS FOR NON-COVERED DRUGS -- BIN:00 3585, PCN: ASPROD1, Group: XXXXX, ID# [id number], Questions: . THIS IS NOT INSURANCE.] carvedilol 3.125 mg tablet RxNorm: 734850 1 Tablet(s) P O BID to replace 6.25mg dose 08/07/2016 02/02/2017 Inactive clonazepam 0.5 mg tablet RxNorm: 064627 1 Tablet(s) PO BID 07/04/2008/07/2016 Inactive Plavix 75 mg tablet RxNorm: 699901 1 TABLET(S) PO QD 06/20/201608/06 Inactive [SAVINGS FOR NON-COVERED DRUGS -- BIN:00 3585, PCN: ASPROD1, Group: XXXXX, ID# XXXXXXX, Questions: . THIS IS NOT INSURANCE.] clonazepam 0.5 mg tablet RxNorm: 766055 1 Tablet(s) PO BID 06/09/20 16 07/03/2016 Inactive pravastatin 20 mg tablet RxNorm: 170096 1 Tablet(s) PO QD 05/23/2016 08/06/2016 Inactive pravastatin 20 mg tablet RxNorm: 542350 1 Tablet(s) PO QD 05/23/2016 05/22/2016 Inactive carvedilol 3.125 mg tablet RxNorm: 038793 1 Tablet(s) P O BID to replace 6.25mg dose 05/10/2016 08/06/2016 Inactive carvedilol 3.125 mg tablet RxNorm: 625289 1 Tablet(s) P O BID to replace 6.25mg dose 05/10/2016 05/09/2016 Inactive clonazepam 0.5 mg tablet RxNorm: 532243 1 Tablet(s) PO BID 05/10/20 16 06/08/2016 Inactive carvedilol 6.25 mg tablet RxNorm: 288794 1 Tablet(s) PO QD 05/10/20 16 05/10/2016 Inactive simvastatin 40 mg tablet RxNorm: 435252 1 TABLET(S) PO QD 04/10/2016 05/09/2016 Inactive Medrol (Jose) 4 mg tablets in a dose pack RxNorm: 884243 Tablet(s) PO As Directed 01/13/2016 05/09/2016 Inactive cyclobenzaprine 10 mg tablet RxNorm: 882018 1 TABLET(S) PO TID NEEDED FOR SPASM 01/11/2016 03/10/2016 Inactive [SAVINGS FOR NON -COVERED DRUGS -- BIN:469998, PCN: ASPROD1, Group: XXXXX, ID# [id number], Questions: . THIS IS NOT INSURANCE.] Plavix 75 mg tablet RxNorm: 002506 1 Tablet(s) PO QD 12/30/201506/19 Inactive [SAVINGS FOR NON-COVERED DRUGS -- BIN: 3585, PCN: ASPROD1, Group: XXXXX, ID# [id number], Questions: . THIS IS NOT INSURANCE.] Ambien 5 mg tablet RxNorm: 142395 TAKE 1 TABLET BY MOUTH EVERY DAY AT BEDTIME 11/15/2015 11/17/2016 Inactive simvastatin 40 mg tablet RxNorm: 454422 1 Tablet(s) PO QD 10/11/2015 01/12/2019 Inactive simvastatin 40 mg tablet RxNorm: 210051 1 Tablet(s) PO QD 10/08/2015 10/10/2015 Inactive Ambien 5 mg tablet RxNorm: 795673 TAKE 1 TABLET BY MOUTH EVERY NIGHT AT BEDTIME 07/27/2015 11/15/2015 Inactive Plavix 75 mg tablet RxNorm: 384052 1 Tablet(s) PO QD 06/28/201512/29 Inactive [SAVINGS FOR NON-COVERED DRUGS -- BIN: 3585, PCN: ASPROD1, Group: XXXXX, ID# XXXXXXX, Questions: . THIS IS NOT INSURANCE.] Coreg 6.25 mg tablet RxNorm: 867267 1 TABLET(S) PO BID 04/19/2015 Inactive [SAVINGS FOR NON-COVERED DRUGS -- BIN:00 3585, PCN: ASPROD1, Group: XXXXX, ID# XXXXXXX, Questions: . THIS IS NOT INSURANCE.] simvastatin 40 mg tablet RxNorm: 737315 1 Tablet(s) PO QD 04/05/2015 04/04/2015 Inactive simvastatin 40 mg tablet RxNorm: 555591 1 Tablet(s) PO QD 04/05/2015 10/11/2015 Inactive Plavix 75 mg tablet RxNorm: 415279 1 TABLET(S) PO QD 03/22/201504/20 Inactive [SAVINGS FOR NON-COVERED DRUGS -- BIN:00 3585, PCN: ASPROD1, Group: XXXXX, ID# [id number], Questions: . THIS IS NOT INSURANCE.] Plavix 75 mg tablet RxNorm: 326072 1 Tablet(s) PO QD 03/22/201506/28 Inactive [SAVINGS FOR NON-COVERED DRUGS -- BIN:00 3585, PCN: ASPROD1, Group: XXXXX, ID# [id number], Questions: . THIS IS NOT INSURANCE.] Ambien 5 mg tablet RxNorm: 705391 1 Tablet(s) PO QHS 12/17/201407/28 Inactive [SAVINGS FOR NON-COVERED DRUGS -- BIN:00 3585, PCN: ASPROD1, Group: XXXXX, ID# XXXXXXX, Questions: . THIS IS NOT INSURANCE.] Coreg 6.25 mg tablet RxNorm: 290787 1 Tablet(s) PO BID 12/17/2014 Inactive [SAVINGS FOR NON-COVERED DRUGS -- BIN:00 3585, PCN: ASPROD1, Group: XXXXX, ID# XXXXXXX, Questions: . THIS IS NOT INSURANCE.] Plavix 75 mg tablet RxNorm: 410105 1 Tablet(s) PO QD 12/17/201403/16 Inactive [SAVINGS FOR NON-COVERED DRUGS -- BIN:00 3585, PCN: ASPROD1, Group: XXXXX, ID# XXXXXXX, Questions: . THIS IS NOT INSURANCE.] cyclobenzaprine 10 mg tablet RxNorm: 245080 1 Tablet(s) PO TID as needed for spasm 12/17/2014 03/16/2015 Inactive [SAVINGS FOR NON -COVERED DRUGS -- BIN:349588, PCN: ASPROD1, Group: XXXXX, ID# [id number], Questions: . THIS IS NOT INSURANCE.] Coreg 6.25 mg tablet RxNorm: 195010 1 Tablet(s) PO BID 10/21/201409/2014 Inactive [SAVINGS FOR NON-COVERED DRUGS -- BIN:00 3585, PCN: ASPROD1, Group: XXXXX, ID# XXXXXXX, Questions: . THIS IS NOT INSURANCE.] Plavix 75 mg tablet RxNorm: 691935 1 Tablet(s) PO QD 10/21/201412/16 Inactive [SAVINGS FOR NON-COVERED DRUGS -- BIN:00 3585, PCN: ASPROD1, Group: XXXXX, ID# XXXXXXX, Questions: . THIS IS NOT INSURANCE.] Plavix 75 mg tablet RxNorm: 597219 1 Tablet(s) PO QD Ne eds routine check up--last seen March 2012 09/21/2014 10/20/2014 Inactive [SAVINGS FOR UNINSURED PATIENTS -- BIN:058543, PCN: ASPROD1, Group: AME08, ID# [id number], Process claim through [employer], for questions: . THIS IS NOT INSURANCE.] Ambien 5 mg tablet RxNorm: 362458 1 Tablet(s) PO [facility] 09/21/201412/16 Inactive [SAVINGS FOR UNINSURED PATIENTS -- BIN:0 95077, PCN: ASPROD1, Group: AME08, ID# [id number], Process claim through [employer], for questions: . THIS IS NOT INSURANCE.] Coreg 6.25 mg tablet RxNorm: 098998 1 Tablet(s) PO BID 09/21/201411/2014 Inactive [SAVINGS FOR UNINSURED PATIENTS -- BIN:0 93977, PCN: ASPROD1, Group: AME08, ID# [id number], Process claim through [employer], for questions: . THIS IS NOT INSURANCE.] Plavix 75 mg tablet RxNorm: 160373 1 Tablet(s) PO QD Ne eds routine check up--last seen March 2012 08/04/2014 09/02/2014 Inactive [SAVINGS FOR UNINSURED PATIENTS -- BIN:821495, PCN: ASPROD1, Group: AME08, ID# [id number], Process claim through [email or web address], for questions: . THIS IS NOT INSURANCE.] Plavix 75 mg tablet RxNorm: 207796 1 Tablet(s) PO QD Ne eds routine check up--last seen March 2012 08/03/2014 08/03/2014 Inactive Protonix 40 mg tablet,delayed release RxNorm: 970092 1 Tablet(s ) PO QD 06/08/2014 02/17/2019 Inactive [SAVINGS FOR UNINSUR ED PATIENTS -- BIN:743348, PCN: ASPROD1, Group: AME08, ID# [id number], Process claim through [employer], for questions: . THIS IS NOT INSURANCE.] hydrocodone 10 mg-acetaminophen 325 mg tablet RxNorm: 155786 1 Tablet(s) PO BID as needed for pain 02/18/2014 03/31/2015 Inactive Coreg 6.25 mg tablet RxNorm: 908979 1 Tablet(s) PO BID 02/02/2014 Inactive Protonix 40 mg granules delayed-release packet RxNorm: 623930 1 Tablet(s) PO QD 01/13/2014 06/08/2014 Inactive Plavix 75 mg tablet RxNorm: 054702 1 Tablet(s) PO QD Ne eds routine check up--last seen March 2012 01/13/2014 08/02/2014 Inactive Plavix 75 mg tablet RxNorm: 398450 1 Tablet(s) PO QD Ne eds routine check up--last seen March 2012 12/09/2013 01/07/2014 Inactive Coreg 6.25 mg tablet RxNorm: 333161 1 Tablet(s) PO BID 12/09/2013 Inactive Cymbalta 60 mg capsule,delayed release RxNorm: 598742 1 Capsule (s) PO QD 10/31/2013 01/12/2014 Inactive Coreg 6.25 mg tablet RxNorm: 346837 1 Tablet(s) PO BID 10/31/2013 Inactive Plavix 75 mg tablet RxNorm: 828100 1 Tablet(s) PO QD Ne eds routine check up--last seen March 2012 10/31/2013 11/29/2013 Inactive Coreg 6.25 mg tablet RxNorm: 315799 1 Tablet(s) PO BID 10/31/2013 Inactive atorvastatin 40 mg tablet RxNorm: 638017 1 Tablet(s) PO QD 10/31/19 14 03/31/2015 Inactive Plavix 75 mg tablet RxNorm: 276236 1 Tablet(s) PO QD Ne eds routine check up--last seen March 2012 09/23/2013 10/30/2013 Inactive cyclobenzaprine 10 mg tablet RxNorm: 841490 1 Tablet(s) PO TID as needed for spasm 09/23/2013 No Stop Date Active cyclobenzaprine 10 mg tablet RxNorm: 501707 1 Tablet(s) PO TID as needed for spasm 07/04/2013 09/22/2013 Inactive atorvastatin 40 mg tablet RxNorm: 249645 1 Tablet(s) PO QD 06/23/20 13 10/30/2013 Inactive atorvastatin 40 mg tablet RxNorm: 713673 1 Tablet(s) PO QD 04/22/20 13 06/22/2013 Inactive Nucynta 50 mg tablet RxNorm: 849016 1-2 Tablet(s) PO Q6H as nee ded for pain 01/01/2013 01/12/2014 Inactive Ambien 5 mg tablet RxNorm: 763521 1 Tablet(s) PO QHS 10/16/201201/13 Inactive Plavix 75 mg tablet RxNorm: 962011 1 Tablet(s) PO QD 09/19/201209/13 Inactive Protonix 40 mg tablet,delayed release RxNorm: 165312 1 Tablet(s ) PO QD 09/19/2012 09/18/2012 Inactive simvastatin 40 mg tablet RxNorm: 942459 1 Tablet(s) PO QD 09/19/2012 02/23/2013 Inactive Protonix 40 mg tablet,delayed release RxNorm: 981517 1 Tablet(s ) PO QD 09/19/2012 09/13/2013 Inactive Ultram 50 mg tablet RxNorm: 913079 1-2 Tablet(s) PO QID as need ed for pain 09/19/2012 02/26/2017 Inactive propranolol 80 mg tablet RxNorm: 410497 1 Tablet(s) PO QHS 09/19/19 13 09/18/2012 Inactive Cymbalta 60 mg capsule,delayed release RxNorm: 210644 1 Capsule (s) PO QD 09/19/2012 09/18/2012 Inactive Cymbalta 60 mg capsule,delayed release RxNorm: 436067 1 Capsule (s) PO QD 09/19/2012 03/17/2013 Inactive propranolol 80 mg tablet RxNorm: 309654 1 Tablet(s) PO QHS 09/19/19 13 02/23/2013 Inactive hydrocodone-acetaminophen 10 mg-325 mg tablet RxNorm: 491778 2 1-2 Tablet(s) PO QID 07/25/2012 02/23/2013 Inactive Ambien 10 mg tablet RxNorm: 390315 1 Tablet(s) PO QHS as needed for sleep 07/10/2012 01/27/2013 Inactive propranolol 80 mg tablet RxNorm: 627955 1 Tablet(s) PO QHS 05/13/20 12 09/18/2012 Inactive hydrocodone-acetaminophen 10 mg-325 mg tablet RxNorm: 389871 2 1-2 Tablet(s) PO QID 05/02/2012 No Stop Date Active Restoril 15 mg Cap RxNorm: 905699 1-2 Capsule(s) PO QHS 05/02/2012 Inactive propranolol 80 mg tablet RxNorm: 759469 1 Tablet(s) PO QHS 05/02/20 12 05/12/2012 Inactive Chantix Starting Month Box 0.5 mg (11)-1 mg (42) Tabs in a Dose Pack RxNorm: 138908 Tablet(s) PO As Directed 04/01/2012 01/27/2013 Inactive simvastatin 40 mg tablet RxNorm: 135778 1 Tablet(s) PO QD 03/28/2012 09/18/2012 Inactive simvastatin 40 mg Tab RxNorm: 333838 1 Tablet(s) PO QD 03/22/201207/2012 Inactive Effient 10 mg Tab RxNorm: 451436 1 Tablet(s) PO QD 03/22/2012 012 Inactive Prilosec 40 mg Capsule, delayed release RxNorm: 994731 1 Capsul e(s) PO QD 03/22/2012 09/18/2012 Inactive Prilosec 40 mg Capsule, delayed release RxNorm: 048866 1 Capsul e(s) PO QD 03/19/2012 03/21/2012 Inactive Cymbalta 60 mg capsule,delayed release RxNorm: 883943 1 Capsule (s) PO QD 03/04/2012 08/30/2012 Inactive hydrocodone-acetaminophen 10 mg-325 mg Tab RxNorm: 8629669 1-2 T ablet(s) PO QID 01/23/2012 No Stop Date Active Cymbalta 60 mg Capsule, delayed release RxNorm: 723620 1 Capsul e(s) PO QD 01/23/2012 03/03/2012 Inactive Cipro 500 mg Tab RxNorm: 070878 1 Tablet(s) PO BID 12/20/2011 012 Inactive Cymbalta 60 mg Capsule, delayed release RxNorm: 175124 1 Capsul e(s) PO QD 12/13/2011 01/22/2012 Inactive nortriptyline 75 mg Cap RxNorm: 281139 1 Capsule(s) PO QHS 11/29/1904/02/2012 Inactive Cymbalta 60 mg Cap RxNorm: 970543 1 Capsule(s) PO QD 10/24/201112/11 Inactive propranolol 80 mg Tab RxNorm: 457695 1 Tablet(s) PO QHS 10/24/2011 Inactive hydrocodone-acetaminophen 10 mg-325 mg Tab RxNorm: 0185753 1-2 T ablet(s) PO QID 09/29/2011 No Stop Date Active hydrocodone-acetaminophen 10 mg-325 mg Tab RxNorm: 9390876 1-2 T ablet(s) PO QID 07/25/2011 No Stop Date Active hydrocodone-acetaminophen 10 mg-325 mg Tab RxNorm: 7647050 1-2 T ablet(s) PO QID 02/14/2011 No Stop Date Active Prilosec 40 mg Cap RxNorm: 518287 1 Capsule(s) PO 01/03/2011 04/28/20 19 Inactive nortriptyline 75 mg Cap RxNorm: 304189 1 Capsule(s) PO QHS 01/04/20 11 07/01/2011 Inactive Neurontin 600 mg Tab RxNorm: 177282 1 Tablet(s) PO QHS 12/08/201011/2011 Inactive hydrocodone-acetaminophen 5 mg-500 mg Tab RxNorm: 546866 2 Tablet(s) PO Q4-6H prn 10/20/2010 01/08/2011 Inactive Diltzac ER 240 mg Cap RxNorm: 927302 1 Capsule(s) PO QD 07/14/2010 Inactive Nortriptyline 75 mg Cap RxNorm: 571733 1 Capsule(s) PO QHS 05/09/20 10 01/12/2019 Inactive Neurontin 600 mg Tab RxNorm: 618034 1 Tablet(s) PO QD 03/17/201012/17 Inactive Nortriptyline 75 mg Cap RxNorm: 129188 1 Capsule(s) PO 01/12/2010 Inactive Nortriptyline 50 mg Cap RxNorm: 751506 1 Capsule(s) PO QHS 01/13/20 10 01/11/2010 Inactive Diltzac ER 240 mg Cap RxNorm: 699791 1 Capsule(s) PO QD 12/06/2009 Inactive aspirin 81 mg Tab RxNorm: 747427 1 Tablet(s) PO QD No Start Date Active Vitamin D3 2,000 unit tablet RxNorm: 350032 1 Tablet(s) PO QD No Star t Date Active Lyrica 75 mg capsule RxNorm: 023490 1 Capsule(s) PO QHS No Start Date Active jzxccvbfh-zkrniutag-kxmdop complex no.233 oral RxNorm: oral No Start Date Active primidone 50 mg tablet RxNorm: 904114 2 Tablet(s) PO BID No Start Date Active Prilosec 40 mg Capsule, delayed release RxNorm: 171661 1 Capsul e(s) PO QD No Start Date 03/18/2012 Inactive Prilosec 20 mg Cap RxNorm: 591909 1 Capsule(s) PO QHS No Start Date 0 01/02/2011 Inactive primidone 50 mg tablet RxNorm: 174942 1/2 Tablet(s) PO QHS for 1week then go full tab if needed No Start Date 05/01/2017 Inactive ProAir HFA 90 mcg/actuation aerosol inhaler RxNorm: 314804 2 Puff(s) INH Q4H as needed No Start Date 10/29/2017 Inactive clonazepam 0.5 mg tablet RxNorm: 994614 1/2 Tablet(s) PO BID No Sta rt Date 02/12/2017 Inactive Pepcid AC 10 mg Tab RxNorm: 954351 1 Tablet(s) PO QAM No Start Date 0 02/19/2011 Inactive Coreg Oral RxNorm: Oral No Start Date 01/12/2014 Inactive primidone 50 mg tablet RxNorm: 126897 1/2 Tablet(s) PO QD for 7 days then increase to 1 tablet at bedtime No Start Date 01/08/2017 Inactive Medrol (Jose) 4 mg tablets in a dose pack RxNorm: 368164 Tablet(s) PO As Directed No Start Date 01/12/2016 Inactive Plavix 75 mg tablet RxNorm: 545393 1 Tablet(s) PO QD No Start Date Inactive cyclobenzaprine 10 mg tablet RxNorm: 029902 1 Tablet(s) PO TID as needed for spasm No Start Date 07/03/2013 Inactive Bevespi Aerosphere 9 mcg-4.8 mcg HFA aerosol inhaler RxNorm: 6887734 2 Puff(s) INH BID No Start Date 02/18/2019 Inactive tramadol 50 mg tablet RxNorm: 720803 1-2 Tablet(s) PO TID as ne eded for pain No Start Date 01/12/2019 Inactive clonazepam 1 mg tablet RxNorm: 807975 1 Tablet(s) PO QAM No Start D ate 09/18/2018 Inactive hydrocodone-acetaminophen 5 mg-500 mg Tab RxNorm: 314112 2 Tablet(s) PO Q4-6H prn No Start Date 10/19/2010 Inactive lisinopril 20 mg Tab RxNorm: 565389 1/2 Tablet(s) PO QD No Start Da te 03/12/2011 Inactive Protonix 40 mg tablet,delayed release RxNorm: 133291 1 Tablet(s ) PO QD No Start Date 06/07/2014 Inactive Lipitor Oral RxNorm: Oral No Start Date 01/12/2014 Inactive primidone 50 mg tablet RxNorm: 250543 2 Tablet(s) PO QAM and 1 tablet at HS No Start Date 02/17/2019 Inactive hydrocodone-acetaminophen 10 mg-325 mg Tab RxNorm: 0466929 1-2 T ablet(s) PO QID No Start Date 02/13/2011 Inactive Ultram 50 mg tablet RxNorm: 835630 1-2 Tablet(s) PO QID as need ed for pain No Start Date 09/18/2012 Inactive Effient 10 mg Tab RxNorm: 380136 1 Tablet(s) PO QD No Start Date 01/2012 Inactive Bevespi Aerosphere 9 mcg-4.8 mcg HFA aerosol inhaler RxNorm: 6919262 2 Puff(s) INH BID No Start Date 10/29/2017 Inactive Neurontin Oral RxNorm: Oral No Start Date 01/12/2010 Inactive primidone 50 mg tablet RxNorm: 437171 1 Tablet(s) PO QD No Start Da te 01/12/2019 Inactive Chantix Starting Month Box 0.5 mg (11)-1 mg (42) Tabs in a Dose Pack RxNorm: 470411 Tablet(s) PO No Start Date 03/31/2012 Inactive atenolol 25 mg Tab RxNorm: 346725 1 Tablet(s) PO QD No Start Date 02/2012 Inactive Neurontin 600 mg Tab RxNorm: 430608 1 Tablet(s) PO QD No Start Date 0 03/16/2010 Inactive Nucynta 50 mg tablet RxNorm: 809511 1-2 Tablet(s) PO Q6H as nee ded for pain No Start Date 12/31/2012 Inactive simvastatin 40 mg Tab RxNorm: 610785 1 Tablet(s) PO QD No Start Date 03/21/2012 Inactive Medication Administered No Medication Administered data Immunizations Vaccine Codes Date Status Influenza CVX: 135 07/04/2017 Complete Results Observation Observation Code Item Item Code Result Date S [facility] Location COMPLETE BLOOD COUNT [id number] WBC 4.9 10e9/L 09/04/20 18 Unknown COMPLETE BLOOD COUNT [id number] RBC 4.42 10e12/L 2017 Unknown COMPLETE BLOOD COUNT [id number] HEMOGLOBIN 13.4 g/dL 09/04/20 18 Unknown COMPLETE BLOOD COUNT 0276069 HEMATOCRIT 40.5 % 09/04/20 18 Unknown COMPLETE BLOOD COUNT [id number] MCV 91.6 fL 8 Unknown COMPLETE BLOOD COUNT 0240289 MCH 30.3 pg 8 Unknown COMPLETE BLOOD COUNT 2702724 MCHC 33.1 g/dL 8 Unknown COMPLETE BLOOD COUNT 5160115 PLATELET COUNT 224 10e9/L Unknown COMPLETE BLOOD COUNT 8566443 Mean Plt Volume 9.9 fL Unknown COMPLETE BLOOD COUNT 3441210 Neut Auto 60.8 % 8 Unknown COMPLETE BLOOD COUNT [id number] Lymph Auto 26.8 % 09/04/20 18 Unknown COMPLETE BLOOD COUNT 8621755 [place] Auto 10.4 % 8 Unknown COMPLETE BLOOD COUNT 9488738 RDW 12.8 % 8 Unknown COMPLETE BLOOD COUNT 8882873 Eos Auto 1.6 % 8 Unknown COMPLETE BLOOD COUNT 0416826 Baso Auto 0.4 % 8 Unknown COMPLETE BLOOD COUNT [id number] Neutrophil Abs 2.98 10e9/L Unknown COMPLETE BLOOD COUNT [id number] Lymphocyte Abs 1.31 10e9/L Unknown COMPLETE BLOOD COUNT [id number] Monocyte Abs 0.51 10e9/L 08/17 Unknown COMPLETE BLOOD COUNT [id number] Eosinophil Abs 0.08 10e9/L Unknown COMPLETE BLOOD COUNT 4268674 RDW-SD 41.6 fL 8 Unknown COMPLETE BLOOD COUNT [id number] Basophil Abs 0.02 10e9/L 08/17 Unknown COMPREHENSIVE METABOLIC 52532 AST 16 U/L 2017 Unknown COMPREHENSIVE METABOLIC 97971 ALT 8 U/L 2017 Unknown COMPREHENSIVE METABOLIC 22798 BUN 12 mg/dL 2017 Unknown COMPREHENSIVE METABOLIC 13771 ALBUMIN 4.4 g/dL 2017 Unknown COMPREHENSIVE METABOLIC 17545 CHLORIDE 107 mmol/L 09/04 Unknown COMPREHENSIVE METABOLIC 84348 Bili Total 1.0 mg/dL 09/04 Unknown COMPREHENSIVE METABOLIC 17910 ALK PHOS 58 U/L 2017 Unknown COMPREHENSIVE METABOLIC 46764 SODIUM 142 mmol/L 09/04 Unknown COMPREHENSIVE METABOLIC 76835 CREATININE 0.97 mg/dL 08/17 Unknown COMPREHENSIVE METABOLIC 39436 CALCIUM 9.2 mg/dL 2017 Unknown COMPREHENSIVE METABOLIC 33016 POTASSIUM 4.6 mmol/L 09/04 Unknown COMPREHENSIVE METABOLIC 51878 Total Protein 6.5 g/dL Unknown COMPREHENSIVE METABOLIC 83639 Glucose 96 mg/dL 2017 Unknown COMPREHENSIVE METABOLIC 31613 Bicarbonate 29 mmol/L 08/17 Unknown COMPREHENSIVE METABOLIC 47129 AGAP 6 mmol/L 2017 Unknown LIPID GROUP 56862 Cholesterol 182 mg/dL 09/04/2018 Unkno wn LIPID GROUP 48134 Triglyceride 84 mg/dL 09/04/2018 Unkn own LIPID GROUP 00306 HDL CHOLESTEROL 76 mg/dL 09/04/2018 U nknown LIPID GROUP 90777 Chol/HDL Ratio 2.39 ratio 09/04/2018 U nknown LIPID GROUP 47607 NON-HDL Chol 106 mg/dL 09/04/2018 Unkn own LIPID GROUP 69385 LDL Cholesterol 89 mg/dL 09/04/2018 U nknown GFR CALC 6277082 GFR Non Afr Amr >60 mL/min 09/04/2018 Un known GFR CALC 4576190 GFR Afr Amr >60 mL/min 09/04/2018 Unknow n THYROID STIMULATING HORMONE 44051 TSH 0.713 uIU/mL 09/04/2018 Unknown PSA EQUIMOLAR BARBIE 96683 PSA Total 0.66 ng/mL 8 Unknown A FOOD C P 7356463 [place] Cl Class 0 11/17/2017 Unknown A FOOD C P 9686030 [place] Ct <0.35 kU/L 11/17/2017 Unknow n A FOOD C P 1799306 [place] Cl Class 0 11/17/2017 Unkn own A FOOD C P 9015697 [place] Ct <0.35 kU/L 11/17/2017 Unk nown A FOOD C P 6492160 [place] White Cl Class 0 11/17/2017 Unkno wn A FOOD C P 4037694 Egg White Ct <0.35 kU/L 11/17/2017 Unkn own A FOOD C P 0098854 Egg Yolk Cl Class 0 11/17/2017 Unknow n A FOOD C P 7504620 Egg Yolk Ct <0.35 kU/L 11/17/2017 Unkno wn A FOOD C P 0872889 Cow Milk Cl Class 0 11/17/2017 Unknow n A FOOD C P 9394159 Cow Milk Ct <0.35 kU/L 11/17/2017 Unkno wn A FOOD C P 3880599 Peanut Cl Class 0 11/17/2017 Unknown A FOOD C P 7239620 Peanut Ct <0.35 kU/L 11/17/2017 Unknown A FOOD C P 2979645 Shrimp Cl Class 0 11/17/2017 Unknown A FOOD C P 7513728 [place] Ct <0.35 kU/L 11/17/2017 Unknown A FOOD C P 6466916 [place] Cl Class 0 11/17/2017 Unknown A FOOD C P 3549415 [place] Ct <0.35 kU/L 11/17/2017 Unknow n A FOOD C P 8105340 Wheat Cl Class 0 11/17/2017 Unknown A FOOD C P 7731866 Wheat Ct <0.35 kU/L 11/17/2017 Unknown A FOOD C P 8623554 Potato Cl Class 0 11/17/2017 Unknown A FOOD C P 2795675 Potato Ct <0.35 kU/L 11/17/2017 Unknown A FOOD C P 0486135 Beef Cl Class 2 11/17/2017 Unknown A FOOD C P 6080491 Beef Ct 0.88 kU/L 11/17/2017 Unknown A FOOD C P 4145128 [place] Cl Class 0 11/17/2017 Unknown A FOOD C P 7819702 [place] Ct <0.35 kU/L 11/17/2017 Unknown A FOOD C P 9740177 P[place] Cl Class 0 11/17/2017 Unknown A FOOD C P 4162548 Pork Ct <0.35 kU/L 11/17/2017 Unknown A FOOD C P 7654387 [place] Cl Class 0 11/17/2017 Unknown A FOOD C P 8407596 [place] Ct <0.35 kU/L 11/17/2017 Unknown A FOOD C P 7959901 [place] Cl Class 0 11/17/2017 Unkn own A FOOD C P 0523874 [place] Ct <0.35 kU/L 11/17/2017 Unk nown A FOOD C P 2030357 [place] Cl Class 0 11/17/2017 Unknown A FOOD C P 5938151 [place] Ct <0.35 kU/L 11/17/2017 Unknown A FOOD C P 2606581 [place] Cl Class 0 11/17/2017 Unknown A FOOD C P 0609839 [place] Ct <0.35 kU/L 11/17/2017 Unknown A FOOD C P 7401539 [place] CL Class 0 11/17/2017 Unknown A FOOD C P 4423364 [place] <0.35 kU/L 11/17/2017 Unknown A FOOD C P 9935454 [place] Cl Class 0 11/17/2017 Unknown A FOOD C P 6972159 [place] Ct <0.35 kU/L 11/17/2017 Unknown A FOOD C P 8306704 Oat Cl Class 0 11/17/2017 Unknown A FOOD C P 5272735 Oat Ct <0.35 kU/L 11/17/2017 Unknown A FOOD C P 7719998 [place] Cl Class 0 11/17/2017 Unknown A FOOD C P 5712745 [place] [facility] <0.35 kU/L 11/17/2017 Unknown A FOOD C P 3037011 [place] CL Class 0 11/17/2017 Un known A FOOD C P 9536932 [place] Ct <0.35 kU/L 11/17/2017 U nknown A FOOD C P 5345939 [place] Cl Class 0 11/17/2017 Unknown A FOOD C P 1181671 [place] Ct <0.35 kU/L 11/17/2017 Unknown A FOOD C P 0500408 [place] Meat Cl Class 0 11/17/2017 Unkn own A FOOD C P 0187456 [place] Ct <0.35 kU/L 11/17/2017 Unk nown A NUTS PNL 9972461 Pe[place] Cl Class 0 11/17/2017 Unknown A NUTS PNL 3092468 Peanut Ct <0.35 kU/L 11/17/2017 Unknown A NUTS PNL 0330121 [place] Meat Cl Class 0 11/17/2017 Unk nown A NUTS PNL 9033570 [place] [facility] <0.35 kU/L 11/17/2017 Un known A NUTS PNL 3490491 [place] Cl Class 0 11/17/2017 Unkn own A NUTS PNL 0309777 [place] Ct <0.35 kU/L 11/17/2017 Unk nown A NUTS PNL 1998884 [place] Cl Class 0 11/17/2017 Unknown A NUTS PNL 7091782 [place] Ct <0.35 kU/L 11/17/2017 Unknown A NUTS PNL 9914110 [place] Cl Class 0 11/17/2017 Unknow n A NUTS PNL 1365151 [place] Ct <0.35 kU/L 11/17/2017 Unkno wn A NUTS PNL 7857756 [place] Cl Class 0 11/17/2017 Unkno wn A NUTS PNL 8786646 [place] Ct <0.35 kU/L 11/17/2017 Unkn own A NUTS PNL 3354907 [place] Cl Class 0 11/17/2017 Unknown A NUTS PNL 1612568 [place] Ct <0.35 kU/L 11/17/2017 Unknown A NUTS PNL 2166464 [place] Cl Class 0 11/17/2017 Unkno wn A NUTS PNL 7736597 [place] Ct <0.35 kU/L 11/17/2017 Unkn own A NUTS PNL 6789298 Allergen Interp See Note 11/17/2017 Un known A FRT/VG P 3579701 [place] Cl Class 0 11/17/2017 Unkn own A FRT/VG P 6300193 [place] Ct <0.35 kU/L 11/17/2017 Unk nown A FRT/VG P 5417234 [place] Cl Class 0 11/17/2017 Unknown A FRT/VG P 7805421 [place] Ct <0.35 kU/L 11/17/2017 Unknown A FRT/VG P 8117269 [place] Cl Class 0 11/17/2017 Unkn own A FRT/VG P 2456745 [place] Ct <0.35 kU/L 11/17/2017 Unk nown A FRT/VG P 8015905 [place] Cl Class 0 11/17/2017 Unknown A FRT/VG P 7334874 [place] Ct <0.35 kU/L 11/17/2017 Unknown A FRT/VG P 3790468 [place] Cl Class 0 11/17/2017 Unknown A FRT/VG P 6510637 [place] [facility] <0.35 kU/L 11/17/2017 Unknown A FRT/VG P 2577372 [place] Cl Class 1 11/17/2017 Unknown A FRT/VG P 9593299 [place] Ct 0.48 kU/L 11/17/2017 Unknown A FRT/VG P 6467451 [place] Cl Class 0 11/17/2017 Unk nown A FRT/VG P 7371910 [place] Ct <0.35 kU/L 11/17/2017 Un known A FRT/VG P 6776436 [place] Cl Class 0 11/17/2017 Unk nown A FRT/VG P 0470952 [place] Ct <0.35 kU/L 11/17/2017 Un known A FRT/VG P 9264632 [place] Cl Class 0 11/17/2017 Unknown A FRT/VG P 3591743 [place] Ct <0.35 kU/L 11/17/2017 Unknown A FRT/VG P 1684526 [place] Cl Class 0 11/17/2017 Unknown A FRT/VG P 6991088 [place] Ct <0.35 kU/L 11/17/2017 Unknown A FRT/VG P 3552919 [place] Cl Class 0 11/17/2017 Unkn own A FRT/VG P 3154811 [place] Ct <0.35 kU/L 11/17/2017 Unk nown A FRT/VG P 8709309 [place] Cl Class 0 11/17/2017 Unkn own A FRT/VG P 3196200 Swt [place] Ct <0.35 kU/L 11/17/2017 Unk nown THYROID STIMULATING HORMONE 52699 TSH 1.371 uIU/mL 09/03/2017 Unknown FREE T4 44906 T4 Free 1.26 ng/dL 09/03/2017 Unknown ASSAY TRIIODOTHYRONINE (T3) 61477 T3 Total 0.9 ng/mL Unknown COMPLETE BLOOD COUNT 2328282 WBC 5.9 10e9/L 07/31/20 17 Unknown COMPLETE BLOOD COUNT 4158203 RBC 4.64 10e12/L 2016 Unknown COMPLETE BLOOD COUNT 6264824 HEMOGLOBIN 14.2 g/dL 07/31/20 17 Unknown COMPLETE BLOOD COUNT 4957367 HEMATOCRIT 42.1 % 07/31/20 17 Unknown COMPLETE BLOOD COUNT 7738893 MCV 90.7 fL 7 Unknown COMPLETE BLOOD COUNT 8992560 MCH 30.6 pg 7 Unknown COMPLETE BLOOD COUNT 9719172 MCHC 33.7 g/dL 7 Unknown COMPLETE BLOOD COUNT 7129189 PLATELET COUNT 195 10e9/L Unknown COMPLETE BLOOD COUNT 8436925 Mean Plt Volume 10.0 fL Unknown COMPLETE BLOOD COUNT 8074275 Neut Auto 47.5 % 7 Unknown COMPLETE BLOOD COUNT 1955745 Lymph Auto 37.4 % 07/31/20 17 Unknown COMPLETE BLOOD COUNT 8879074 [place] Auto 11.7 % 7 Unknown COMPLETE BLOOD COUNT 6630490 Eos Auto 3.2 % 7 Unknown COMPLETE BLOOD COUNT 1532711 RDW 12.8 % 7 Unknown COMPLETE BLOOD COUNT 8891423 Baso Auto 0.2 % 7 Unknown COMPLETE BLOOD COUNT 3223820 Neutrophil Abs 2.80 10e9/L Unknown COMPLETE BLOOD COUNT 5264928 Lymphocyte Abs 2.21 10e9/L Unknown COMPLETE BLOOD COUNT 3205787 Monocyte Abs 0.69 10e9/L 07/18 Unknown COMPLETE BLOOD COUNT 6571291 Eosinophil Abs 0.19 10e9/L Unknown COMPLETE BLOOD COUNT 7202253 RDW-SD 41.6 fL 7 Unknown COMPLETE BLOOD COUNT 8928416 Basophil Abs 0.01 10e9/L 07/18 Unknown LIPID GROUP 33124 Cholesterol 186 mg/dL 07/31/2017 Unkno wn LIPID GROUP 73658 Triglyceride 129 mg/dL 07/31/2017 Unkn own LIPID GROUP 74024 HDL CHOLESTEROL 79 mg/dL 07/31/2017 U nknown LIPID GROUP 08170 Chol/HDL Ratio 2.35 ratio 07/31/2017 U nknown LIPID GROUP 04680 NON-HDL Chol 107 mg/dL 07/31/2017 Unkn own LIPID GROUP 06319 LDL Cholesterol 81 mg/dL 07/31/2017 U nknown GFR CALC 3024308 GFR Non Afr Amr >60 mL/min 07/31/2017 Un known GFR CALC 3400068 GFR Afr Amr >60 mL/min 07/31/2017 Unknow n COMPREHENSIVE METABOLIC 32033 AST 19 U/L 2016 Unknown COMPREHENSIVE METABOLIC 69879 ALT 12 U/L 2016 Unknown COMPREHENSIVE METABOLIC 58832 BUN 15 mg/dL 2016 Unknown COMPREHENSIVE METABOLIC 92898 ALBUMIN 4.4 g/dL 2016 Unknown COMPREHENSIVE METABOLIC 57620 CHLORIDE 102 mmol/L 07/31 Unknown COMPREHENSIVE METABOLIC 96124 Bili Total 0.9 mg/dL 07/31 Unknown COMPREHENSIVE METABOLIC 29506 ALK PHOS 53 U/L 2016 Unknown COMPREHENSIVE METABOLIC 38506 SODIUM 138 mmol/L 07/31 Unknown COMPREHENSIVE METABOLIC 28644 CREATININE 1.06 mg/dL 07/18 Unknown COMPREHENSIVE METABOLIC 08687 CALCIUM 9.3 mg/dL 2016 Unknown COMPREHENSIVE METABOLIC 86814 POTASSIUM 4.0 mmol/L 07/31 Unknown COMPREHENSIVE METABOLIC 61705 Total Protein 6.8 g/dL Unknown COMPREHENSIVE METABOLIC 38374 Glucose 86 mg/dL 2016 Unknown COMPREHENSIVE METABOLIC 68653 Bicarbonate 28 mmol/L 07/18 Unknown COMPREHENSIVE METABOLIC 35004 AGAP 8 mmol/L 2016 Unknown COMPREHENSIVE METABOLIC 45299 AST 18 U/L 2015 Unknown COMPREHENSIVE METABOLIC 32584 ALT 9 U/L 2015 Unknown COMPREHENSIVE METABOLIC 21543 BUN 11 mg/dL 2015 Unknown COMPREHENSIVE METABOLIC 13710 ALBUMIN 4.2 g/dL 2015 Unknown COMPREHENSIVE METABOLIC 43133 CHLORIDE 104 mmol/L 05/19 Unknown COMPREHENSIVE METABOLIC 76738 Bili Total 1.2 mg/dL 05/19 Unknown COMPREHENSIVE METABOLIC 12298 ALK PHOS 54 U/L 2015 Unknown COMPREHENSIVE METABOLIC 46418 SODIUM 140 mmol/L 05/19 Unknown COMPREHENSIVE METABOLIC 56598 CREATININE 1.03 mg/dL 10/2015 Unknown COMPREHENSIVE METABOLIC 21542 CALCIUM 9.3 mg/dL 2015 Unknown COMPREHENSIVE METABOLIC 61340 POTASSIUM 4.9 mmol/L 05/19 Unknown COMPREHENSIVE METABOLIC 29047 Total Protein 6.7 g/dL Unknown COMPREHENSIVE METABOLIC 12334 Glucose 92 mg/dL 2015 Unknown COMPREHENSIVE METABOLIC 14446 Bicarbonate 28 mmol/L 10/2015 Unknown COMPREHENSIVE METABOLIC 53206 AGAP 8 mmol/L 2015 Unknown THYROID STIMULATING HORMONE 10464 TSH 1.545 uIU/mL 05/19/2016 Unknown GFR CALC 3345625 GFR Non Afr Amr >60 mL/min 05/19/2016 Un known GFR CALC 4270032 GFR Afr Amr >60 mL/min 05/19/2016 Unknow n VITAMIN B 12 74380 VITAMIN B12 298 pg/mL 05/19/2016 Unkn own COMPLETE BLOOD COUNT 8315411 WBC 5.2 10e9/L 05/19/20 16 Unknown COMPLETE BLOOD COUNT 7693364 RBC 4.34 10e12/L 2015 Unknown COMPLETE BLOOD COUNT 7434591 HEMOGLOBIN 12.9 g/dL 05/19/20 16 Unknown COMPLETE BLOOD COUNT 3286533 HEMATOCRIT 38.9 % 05/19/20 16 Unknown COMPLETE BLOOD COUNT 5087689 MCV 89.6 fL 6 Unknown COMPLETE BLOOD COUNT 3995720 MCH 29.7 pg 6 Unknown COMPLETE BLOOD COUNT 6350186 MCHC 33.2 g/dL 6 Unknown COMPLETE BLOOD COUNT 7743430 PLATELET COUNT 200 10e9/L 10/2015 Unknown COMPLETE BLOOD COUNT 2635203 Mean Plt Volume 10.1 fL 10/2015 Unknown COMPLETE BLOOD COUNT 6771555 Neut Auto 45.4 % 6 Unknown COMPLETE BLOOD COUNT 1412982 Lymph Auto 35.6 % 05/19/20 16 Unknown COMPLETE BLOOD COUNT 5624989 [place] Auto 11.9 % 6 Unknown COMPLETE BLOOD COUNT 5971360 RDW 12.7 % 6 Unknown COMPLETE BLOOD COUNT 3650764 Eos Auto 6.7 % 6 Unknown COMPLETE BLOOD COUNT 0418787 Baso Auto 0.4 % 6 Unknown COMPLETE BLOOD COUNT 0168788 Neutrophil Abs 2.36 10e9/L Unknown COMPLETE BLOOD COUNT 2714568 Lymphocyte Abs 1.85 10e9/L Unknown COMPLETE BLOOD COUNT 6493151 Monocyte Abs 0.62 10e9/L 10/2015 Unknown COMPLETE BLOOD COUNT 7099552 Eosinophil Abs 0.35 10e9/L Unknown COMPLETE BLOOD COUNT 5665641 RDW-SD 40.6 fL 6 Unknown COMPLETE BLOOD COUNT 8959560 Basophil Abs 0.02 10e9/L 10/2015 Unknown LIPID GROUP 38722 Cholesterol 197 mg/dL 05/19/2016 Unkno wn LIPID GROUP 40941 Triglyceride 92 mg/dL 05/19/2016 Unkn own LIPID GROUP 67576 HDL CHOLESTEROL 58 mg/dL 05/19/2016 U nknown LIPID GROUP 78803 Chol/HDL Ratio 3.40 ratio 05/19/2016 U nknown LIPID GROUP 07644 NON-HDL Chol 139 mg/dL 05/19/2016 Unkn own LIPID GROUP 82377 LDL Cholesterol 121 mg/dL 05/19/2016 U nknown FREE T4 51482 T4 Free 1.19 ng/dL 05/19/2016 Unknown COMPREHENSIVE METABOLIC 00019 AST 19 U/L 2014 Unknown COMPREHENSIVE METABOLIC 72014 ALT 10 IU/L 2014 Unknown COMPREHENSIVE METABOLIC 66871 BUN 20 MG/DL 2014 Unknown COMPREHENSIVE METABOLIC 46575 ALBUMIN 4.4 GM/DL 2014 Unknown COMPREHENSIVE METABOLIC 38199 CHLORIDE 104 MMOL/L 04/05 Unknown COMPREHENSIVE METABOLIC 95199 BILI TOT 2.2 MG/DL 2014 Unknown COMPREHENSIVE METABOLIC 58089 ALK PHOS 55 U/L 2014 Unknown COMPREHENSIVE METABOLIC 35957 SODIUM 138 MMOL/L 04/05 Unknown COMPREHENSIVE METABOLIC 15330 CREATININE 1.04 MG/DL 03/18 Unknown COMPREHENSIVE METABOLIC 05935 CALCIUM 9.3 MG/DL 2014 Unknown COMPREHENSIVE METABOLIC 74583 POTASSIUM 4.5 MMOL/L 04/05 Unknown COMPREHENSIVE METABOLIC 89839 PROT TOT 6.7 GM/DL 2014 Unknown COMPREHENSIVE METABOLIC 01270 Glucose 77 MG/DL 2014 Unknown COMPREHENSIVE METABOLIC 66640 BICARB 25 MMOL/L 2014 Unknown COMPREHENSIVE METABOLIC 32393 ANION GAP 9 MEQ/L 2014 Unknown GFR CALC 5693532 GFR AA >60 ML/MIN 04/05/2015 Unknown GFR CALC 4493275 GFR NON-AA >60 ML/MIN 04/05/2015 Unknown LIPID GROUP 09731 HDL TEST 60 MG/DL 04/05/2015 Unknown LIPID GROUP 73182 TRIG 70 MG/DL 04/05/2015 Unknown LIPID GROUP 31747 TEST LDL 137 MG/DL 04/05/2015 Unknown LIPID GROUP 09645 CHOL 211 MG/DL 04/05/2015 Unknown LIPID GROUP 35946 RCHOL/HDL 3.52 RATIO 04/05/2015 Unknow n LIPID GROUP 79619 NON-HDL CH 151 MG/DL 04/05/2015 Unknow n COMPLETE BLOOD COUNT 9790996 WBC 5.3 10e9/L 04/05/20 15 Unknown COMPLETE BLOOD COUNT 5989180 RBC 4.42 10e12/L 2014 Unknown COMPLETE BLOOD COUNT 6906065 HGB 13.4 g/dL 5 Unknown COMPLETE BLOOD COUNT 1550174 HCT DET 39.6 % 5 Unknown COMPLETE BLOOD COUNT 9523076 MCV 89.6 fL 5 Unknown COMPLETE BLOOD COUNT 4320602 MCH 30.3 pg 5 Unknown COMPLETE BLOOD COUNT 1330375 MCHC 33.8 g/dL 5 Unknown COMPLETE BLOOD COUNT 5515044 PLT 201 10e9/L 04/05/20 15 Unknown COMPLETE BLOOD COUNT 7554497 MPV 10.3 fL 5 Unknown COMPLETE BLOOD COUNT 5919026 LUPE % 56.4 % 5 Unknown COMPLETE BLOOD COUNT 6346959 LY % 24.8 % 5 Unknown COMPLETE BLOOD COUNT 7011014 MON % 12.8 % 5 Unknown COMPLETE BLOOD COUNT 9576247 EOS % 5.4 % 5 Unknown COMPLETE BLOOD COUNT 6490952 BASO % 0.6 % 5 Unknown COMPLETE BLOOD COUNT 6141965 RDW 13.2 % 5 Unknown COMPLETE BLOOD COUNT 5870090 ABS LUPE 2.99 10e9/L 015 Unknown COMPLETE BLOOD COUNT 5059522 ABS LYMPH 1.31 10e9/L 015 Unknown COMPLETE BLOOD COUNT 3731949 ABS MONO 0.68 10e9/L 015 Unknown COMPLETE BLOOD COUNT 5039011 ABS EOS 0.29 10e9/L 015 Unknown COMPLETE BLOOD COUNT 9894122 ABS BASO 0.03 10e9/L 015 Unknown COMPLETE BLOOD COUNT 7111940 RDW-SD 42.3 fL 5 Unknown LIPID GROUP 44197 HDL TEST 51 MG/DL 07/19/2012 Unknown LIPID GROUP 10970 TRIG 129 MG/DL 07/19/2012 Unknown LIPID GROUP 50818 TEST LDL 98 MG/DL 07/19/2012 Unknown LIPID GROUP 56054 CHOL 175 MG/DL 07/19/2012 Unknown LIPID GROUP 02894 RCHOL/HDL 3.43 RATIO 07/19/2012 Unknow n COMPREHENSIVE METABOLIC 42379 AST 18 U/L 2011 Unknown COMPREHENSIVE METABOLIC 27801 ALT 12 IU/L 2011 Unknown COMPREHENSIVE METABOLIC 55378 BUN 10 MG/DL 2011 Unknown COMPREHENSIVE METABOLIC 69932 ALBUMIN 4.1 GM/DL 2011 Unknown COMPREHENSIVE METABOLIC 55118 CHLORIDE 103 MMOL/L 07/19 Unknown COMPREHENSIVE METABOLIC 43856 BILI TOT 0.9 MG/DL 2011 Unknown COMPREHENSIVE METABOLIC 47127 ALK PHOS 62 U/L 2011 Unknown COMPREHENSIVE METABOLIC 84662 SODIUM 138 MMOL/L 07/19 Unknown COMPREHENSIVE METABOLIC 90228 CREATININE 1.08 MG/DL 10/2011 Unknown COMPREHENSIVE METABOLIC 26882 CALCIUM 9.1 MG/DL 2011 Unknown COMPREHENSIVE METABOLIC 68644 POTASSIUM 4.2 MMOL/L 07/19 Unknown COMPREHENSIVE METABOLIC 20229 PROT TOT 6.7 GM/DL 2011 Unknown COMPREHENSIVE METABOLIC 42864 Glucose 101 MG/DL 2011 Unknown COMPREHENSIVE METABOLIC 09919 BICARB 27 MMOL/L 2011 Unknown COMPREHENSIVE METABOLIC 53021 ANION GAP 8 MEQ/L 2011 Unknown GFR CALC 5598660 GFR AA >60 ML/MIN 07/19/2012 Unknown GFR CALC 3196678 GFR NON-AA >60 ML/MIN 07/19/2012 Unknown Procedures Procedure Codes Date THER/PROPH/DIAG INJ SC/IM CPT-4: 54614 01/13/2019 TRIAMCINOLONE ACET INJ NOS CPT-4: J3301 01/13/2019 DEXAMETHASONE SODIUM PHOS CPT-4: J1100 01/13/2019 ROUTINE VENIPUNCTURE CPT-4: 01716 09/04/2018 COMPREHEN METABOLIC PANEL CPT-4: 62239 09/04/2018 COMPLETE CBC W/AUTO DIFF WBC CPT-4: 66992 09/04/2018 LIPID PANEL CPT-4: 04231 09/04/2018 ASSAY OF PSA TOTAL CPT-4: 81839 09/04/2018 ASSAY THYROID STIM HORMONE CPT-4: 58575 09/04/2018 URINALYSIS NONAUTO W/O SCOPE CPT-4: 99271 05/15/2018 ROUTINE VENIPUNCTURE CPT-4: 80645 11/16/2017 A FRT/VG P CPT-4: 4183187 11/16/2017 A FOOD C P CPT-4: 9747918 11/16/2017 A NUTS PNL CPT-4: 6308495 11/16/2017 THER/PROPH/DIAG INJ SC/IM CPT-4: 92866 11/06/2017 TRIAMCINOLONE ACET INJ NOS CPT-4: J3301 11/06/2017 DEXAMETHASONE SODIUM PHOS CPT-4: J1100 11/06/2017 ROUTINE VENIPUNCTURE CPT-4: 65779 09/03/2017 ASSAY OF FREE THYROXINE CPT-4: 24077 09/03/2017 ASSAY THYROID STIM HORMONE CPT-4: 97077 09/03/2017 ASSAY TRIIODOTHYRONINE (T3) CPT-4: 36901 09/03/2017 ROUTINE VENIPUNCTURE CPT-4: 71264 07/31/2017 COMPREHEN METABOLIC PANEL CPT-4: 59161 07/31/2017 COMPLETE CBC W/AUTO DIFF WBC CPT-4: 92112 07/31/2017 LIPID PANEL CPT-4: 20399 07/31/2017 FLU VACC PRSV FREE INC ANTIG 65 AND OLDER CPT-4: 12790 07/04/2017 ADMIN INFLUENZA VIRUS VAC CPT-4: G0008 07/04/2017 ROUTINE VENIPUNCTURE CPT-4: 04592 02/26/2017 ASSAY THYROID STIM HORMONE CPT-4: 37534 02/26/2017 COMPREHEN METABOLIC PANEL CPT-4: 79465 02/26/2017 COMPLETE CBC W/AUTO DIFF WBC CPT-4: 71286 02/26/2017 LIPID PANEL CPT-4: 81503 02/26/2017 ASSAY OF PSA TOTAL CPT-4: 08973 02/26/2017 FLUZONE, 5ML (Medicare) CPT-4: Q2038 06/28/2016 ADMIN INFLUENZA VIRUS VAC CPT-4: G0008 06/28/2016 ROUTINE VENIPUNCTURE CPT-4: 86436 05/19/2016 ASSAY OF FREE THYROXINE CPT-4: 36853 05/19/2016 ASSAY THYROID STIM HORMONE CPT-4: 14177 05/19/2016 COMPREHEN METABOLIC PANEL CPT-4: 14349 05/19/2016 COMPLETE CBC W/AUTO DIFF WBC CPT-4: 65724 05/19/2016 LIPID PANEL CPT-4: 79408 05/19/2016 VITAMIN B-12 CPT-4: 91492 05/19/2016 PPPS, initial visit CPT-4: G0438 05/10/2016 ROUTINE VENIPUNCTURE CPT-4: 04601 04/05/2015 ASSAY THYROID STIM HORMONE CPT-4: 49268 04/05/2015 COMPREHEN METABOLIC PANEL CPT-4: 87520 04/05/2015 COMPLETE CBC W/AUTO DIFF WBC CPT-4: 81910 04/05/2015 LIPID PANEL CPT-4: 82208 04/05/2015 ASSAY OF PSA TOTAL CPT-4: 45846 04/05/2015 ROUTINE VENIPUNCTURE CPT-4: 92828 07/19/2012 COMPREHEN METABOLIC PANEL CPT-4: 25816 07/19/2012 LIPID PANEL CPT-4: 53903 07/19/2012 ELECTROCARDIOGRAM COMPLETE CPT-4: 91876 03/22/2012 Vital Signs Date Vital 09/24/2019 Blood Pressure 1: 125/72 Code: 8480-6 BMI: 19.8 Code: 84121-0 Heart Rate 1: 88 bpm Height: 5'11" [...] 1: 102/60 Code: 8480-6 BMI: 19.1 Code: 66602-3 Heart Rate 1: 82 bpm Height: 5'11" Respiratory Rate: 22 bpm SpO2: 97% Tempera ture: 36.4 (C) / 97.6 (F) Weight: 137 lbs 04/25/2018 Blood Pressure 1: 118/64 Code: 8480-6 BMI: 19.2 Code: 62233-7 Heart Rate 1: 98 bpm Height: 5'11" Respiratory Rate: 20 bpm SpO2: 99% Tempera ture: 36.4 (C) / 97.6 (F) Weight: 138 lbs 11/06/2017 Blood Pressure 1: 108/68 Code: 8480-6 BMI: 18.5 Code: 10339-9 Heart Rate 1: 68 bpm Height: 5'11" Respiratory Rate: 20 bpm SpO2: 96% Tempera ture: 36.8 (C) / 98.2 (F) Weight: 133 lbs 09/03/2017 Blood Pressure 1: 122/64 Code: 8480-6 BMI: 17.6 Code: 72638-6 Heart Rate 1: 90 bpm Height: 5'11" Respiratory Rate: 20 bpm SpO2: 98% Tempera ture: 36.4 (C) / 97.6 (F) Weight: 126 lbs 08/21/2017 Blood Pressure 1: 114/80 Code: 8480-6 BMI: 17.9 Code: 11950-2 Heart Rate 1: 80 bpm Height: 5'11" Respiratory Rate: 20 bpm SpO2: 95% Tempera ture: 36.6 (C) / 97.9 (F) Weight: 128 lbs 02/13/2017 Blood Pressure 1: 122/60 Code: 8480-6 BMI: 18.5 Code: 66626-9 Heart Rate 1: 76 bpm Height: 5'11" Respiratory Rate: 20 bpm SpO2: 96% Tempera ture: 36.9 (C) / 98.4 (F) Weight: 133 lbs 11/23/2016 Blood Pressure 1: 126/70 Code: 8480-6 BMI: 18.5 Code: 61589-7 Heart Rate 1: 100 bpm Height: 5'11" Respiratory Rate: 20 bpm SpO2: 96% Tempera ture: 37.1 (C) / 98.8 (F) Weight: 133 lbs 05/23/2016 Blood Pressure 1: 128/82 Code: 8480-6 BMI: 18.5 Code: 95047-5 Heart Rate 1: 88 bpm Height: 5'11" Respiratory Rate: 20 bpm Temperature: 36 .7 (C) / 98.0 (F) Weight: 133 lbs 05/10/2016 Blood Pressure 1: 146/70 Code: 8480-6 BMI: 18.5 Code: 34366-9 Heart Rate 1: 84 bpm Height: 5'11" Respiratory Rate: 20 bpm Temperature: 36 .7 (C) / 98.1 (F) Weight: 133 lbs 04/01/2015 Blood Pressure 1: 102/60 Code: 8480-6 BMI: 18.5 Code: 00771-9 Heart Rate 1: 64 bpm Height: 5'11" Respiratory Rate: 20 bpm Temperature: 36 .8 (C) / 98.2 (F) Weight: 133 lbs 01/13/2014 Blood Pressure 1: 124/78 Code: 8480-6 BMI: 19.8 Code: 82999-9 Heart Rate 1: 76 bpm Height: 5'11" Respiratory Rate: 20 bpm Temperature: 36 .8 (C) / 98.2 (F) Weight: 142 lbs 04/03/2012 Blood Pressure 1: 106/76 Code: 8480-6 BMI: 20.9 Code: 43627-5 Heart Rate 1: 84 bpm Height: 5'11" Respiratory Rate: 20 bpm Temperature: 36 .7 (C) / 98.0 (F) Weight: 150 lbs 12/20/2011 Blood Pressure 1: 116/60 Code: 8480-6 BMI: 20.1 Code: 93751-3 Heart Rate 1: 80 bpm Height: 5'11" Respiratory Rate: 20 bpm Temperature: 36 .4 (C) / 97.6 (F) Weight: 144 lbs 10/24/2011 Blood Pressure 1: 132/74 Code: 8480-6 BMI: 19.7 Code: 76299-9 Heart Rate 1: 96 bpm Height: 5'11" [...] 04/05/2015 follow up 04/01/2015 follow up 01/13/2014 [facility] from Justin Palacio'justin in November 2012 lab draw 07/19/2012 follow up 04/03/2012 S/P stent placement in LAD, changed effient to plavix hip pain 12/20/2011 dyskinesia or tremor 10/24/2011 follow up 03/13/2011 started on effient, zocor, and atenolol follow up 02/20/2011 Hospital Fwup/Dr Christian rojas follow up 02/23/2010 hosp [facility], appt with Dr Bajwa 03/22/10 insomnia 01/12/2010 problems falling and staying asleep, takes nortriptyline Encounters Encounter Performer Location Codes Date ([id number]) OFFICE/OUTPATIENT VISIT EST Diagnosis: Encounter for therapeutic drug level monitoring[ICD10: Z51.81] Diagnosis: Essential tremor[ICD10: G25.0] Verna Alvarez Nurigene CPT-4: 67087 09/24/2019 ([id number]) OFFICE/OUTPATIENT VISIT EST Diagnosis: Noninfective gastroenteritis and colitis, unspecified[ICD10: K52.9] Diagnosis: Hemorrhage of anus and rectum[ICD10: K62.5] Vonnie Loza Nurigene CPT-4: 66588 05/26/2019 ([id number]) OFFICE/OUTPATIENT VISIT EST Diagnosis: Other intervertebral disc degeneration, 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] Diagnosis: Other forms of dyspnea[ICD10: R06.09] Vonnie Vásquez KARIE Loza Nurigene CPT-4: 20031 03/17/2019 OFFICE/OUTPATIENT VISIT EST Diagnosis: Other intervertebral disc degeneration, 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] Diagnosis: Other symptoms and signs involving the musculoskeletal system[ICD10: R29.898] Vonnie Loza Nurigene CPT-4: 19933 02/18/2019 ([id number]) OFFICE/OUTPATIENT VISIT EST Diagnosis: Other allergic rhinitis[ICD10: J30.89] Akilah GASPAR [employer] CPT-4: 01455 01/13/2019 ([id number]) NURSE/OUTPATIENT VISIT EST Diagnosis: Mixed hyperlipidemia[ICD10: E78.2] Diagnosis: Essential (primary) hypertension[ICD10: I10] Diagnosis: Encounter for screening for malignant neoplasm of prostate[ICD10: Z12.5] Diagnosis: Encounter for general adult medical examination with abnormal findings[ICD10: Z00.01] Diagnosis: Benign prostatic hyperplasia without lower urinary tract symptoms[ICD10: N40.0] Vonnie COLMENARES ArchetypesKim Nurigene CPT-4: 76055 09/04/2018 ([id number]) OFFICE/OUTPATIENT VISIT EST Diagnosis: Otorrhea, left ear[ICD10: H92.12] Diagnosis: Impacted cerumen, right ear[ICD10: H61.21] Verna MATHEWS DO [facility] CPT-4: 90926 09/03/2018 ([id number]) OFFICE/OUTPATIENT VISIT EST Diagnosis: Other intervertebral disc degeneration, 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] Diagnosis: Primary insomnia[ICD10: F51.01] Diagnosis: Essential tremor[ICD10: G25.0] Vonnie MATHEWS DO [facility] CPT-4: 39415 08/26/2018 ([id number]) OFFICE/OUTPATIENT VISIT EST Diagnosis: Pelvic and perineal pain[ICD10: R10.2] Verna MATHEWS Mayday PAC [facility] CPT-4: 49216 05/15/2018 ([id number]) OFFICE/OUTPATIENT VISIT EST Diagnosis: Encounter for therapeutic drug level monitoring[ICD10: Z51.81] Diagnosis: Acute sinusitis, unspecified[ICD10: J01.90] Diagnosis: Other intervertebral disc degeneration, 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] Diagnosis: Essential tremor[ICD10: G25.0] Diagnosis: Raynaud's syndrome without gangrene[ICD10: I73.00] Verna MATHEWS Mayday PAC [facility] CPT-4: 77614 04/25/2018 ([id number]) OFFICE/OUTPATIENT VISIT EST Diagnosis: Idiopathic urticaria[ICD10: L50.1] Diagnosis: Other urticaria[ICD10: L50.8] Vonnie MATHEWS Mayday PAC [facility] CPT-4: 75229 11/16/2017 ([id number]) OFFICE/OUTPATIENT VISIT EST Diagnosis: Idiopathic urticaria[ICD10: L50.1] Diagnosis: Other urticaria[ICD10: L50.8] Diagnosis: Other forms of dyspnea[ICD10: R06.09] Vonnie BREWERNE Denia MATHEWS Mayday PAC [facility] CPT-4: 54072 11/06/2017 ([id number]) OFFICE/OUTPATIENT VISIT EST Diagnosis: Dyspnea, unspecified[ICD10: R06.00] Diagnosis: Abnormal weight loss[ICD10: R63.4] Vonnie LUCIA ArchetypesKim MATHEWS [employer] CPT-4: 84648 09/03/2017 ([id number]) OFFICE/OUTPATIENT VISIT EST 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] Diagnosis: Mixed hyperlipidemia[ICD10: E78.2] Diagnosis: Essential tremor[ICD10: G25.0] Diagnosis: Essential (primary) hypertension[ICD10: I10] Diagnosis: Abnormal weight loss[ICD10: R63.4] Vonnie Sebastianalyssaranjan RAFAT REA [facility] CPT-4: 72979 08/21/2017 ([id number]) OFFICE/OUTPATIENT VISIT EST Diagnosis: Mixed hyperlipidemia[ICD10: E78.2] Diagnosis: Essential (primary) hypertension[ICD10: I10] 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] Diagnosis: Anemia, unspecified[ICD10: D64.9] Vonnie Orendranjan ASCENCIOMARSHA Galarza Denia [facility] CPT-4: 60904 07/31/2017 ([id number]) OFFICE/OUTPATIENT VISIT EST Diagnosis: FLU VACCINE[ICD10: Z23] Vonnie Sebastianalyssaranjan ASCENCIOVONNIE Denia GERMAN [employer] CPT-4: 68114 07/04/2017 ([id number]) OFFICE/OUTPATIENT VISIT EST Diagnosis: Mixed hyperlipidemia[ICD10: E78.2] Diagnosis: Essential tremor[ICD10: G25.0] 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] Vonnie MATHEWS DO [facility] CPT-4: 52839 11/23/2016 ([id number]) OFFICE/OUTPATIENT VISIT EST Diagnosis: FLU VACCINE[ICD10: Z23] Vonnie GERMAN DO [facility] CPT-4: 17789 06/28/2016 OFFICE/OUTPATIENT VISIT EST Diagnosis: Open bite of right hand, initial encounter[ICD10: S61.451A] Vonnie MATHEWS DO [facility] CPT-4: 64324 05/23/2016 ([id number]) OFFICE/OUTPATIENT VISIT EST Diagnosis: Encounter for general adult medical examination with abnormal findings[ICD10: Z00.01] Diagnosis: Mixed hyperlipidemia[ICD10: E78.2] Diagnosis: Essential tremor[ICD10: G25.0] 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] Vonnie MATHEWS DO [facility] CPT-4: 61233 05/19/2016 ([id number]) OFFICE/OUTPATIENT VISIT EST Diagnosis: HYPERLIPIDEMIA NEC/NOS[ICD9: 272.4] Diagnosis: CAD[ICD9: 414.00] Diagnosis: TACHYCARDIA[ICD9: 785.0] Diagnosis: HYPERTENSION[ICD9: 401.9] Diagnosis: Routine medical exam[ICD9: V70.0] Vonnie MATHEWS DO [facility] CPT-4: 13772 04/05/2015 ([id number]) OFFICE/OUTPATIENT VISIT EST Diagnosis: HYPERTENSION[ICD9: 401.9] Diagnosis: HYPERLIPIDEMIA NEC/NOS[ICD9: 272.4] Diagnosis: CAD[ICD9: 414.00] Diagnosis: LUMB/LUMBOSAC DISC DEGEN[ICD9: 722.52] Vonnie LAINrei GASPAR Denia MATHEWS DO [facility] CPT-4: 50842 04/01/2015 ([id number]) OFFICE/OUTPATIENT VISIT EST Diagnosis: CHEST PAIN NOS[ICD9: 786.50] Diagnosis: PAIN IN THORACIC SPINE[ICD9: 724.1] Diagnosis: HYPERTENSION[ICD9: 401.9] Diagnosis: GERD[ICD9: 530.81] Vonnie MaciasKim ROMULONDER [facility] CPT-4: 92133 01/13/2014 ([id number]) OFFICE/OUTPATIENT VISIT EST Diagnosis: CAD[ICD9: 414.00] Diagnosis: HYPERLIPIDEMIA NEC/NOS[ICD9: 272.4] Vonniejuan jose Mathews SONUClary ANNA SKim ROMULONDER DO [facility] CPT-4: 99219 07/19/2012 ([id number]) OFFICE/OUTPATIENT VISIT EST Diagnosis: CAD[ICD9: 414.00] Diagnosis: INSOMNIA NOS[ICD9: 780.52] Vonnie Romulojuan miguel Loza OR [facility] CPT-4: 64455 04/03/2012 ([id number]) OFFICE/OUTPATIENT VISIT EST Diagnosis: CHEST PAIN NOS[ICD9: 786.50] Diagnosis: CAD[ICD9: 414.00] Vonnie ASCENCIOLINE JustinKim ROMULONDER DO [facility] CPT-4: 86729 03/22/2012 ([id number]) OFFICE/OUTPATIENT VISIT EST Diagnosis: PROSTATITIS[ICD9: 601.9] Diagnosis: TREMOR NEC[ICD9: 333.1] Vonnie Reid VONNIE JustinKim ROMULOND ER DO [facility] CPT-4: 44750 12/20/2011 OFFICE/OUTPATIENT VISIT EST Diagnosis: TREMOR NEC[ICD9: 333.1] Diagnosis: TACHYCARDIA[ICD9: 785.0] Diagnosis: HYPERTENSION[ICD9: 401.9] Vonnie Romuloalyssaranjan VONNIE JustinKim ORE NDER DO [facility] CPT-4: 26674 10/24/2011 OFFICE/OUTPATIENT VISIT EST Vonnie Romulojuan miguel COLMENARES JustinKim ROMULO NDER DO [facility] CPT- 4: 86407 03/13/2011 ([id number]) OFFICE/OUTPATIENT VISIT EST Vonnie GASPAR SKim ORENDER DO [facility] CPT-4: 79861 02/20/2011 ([id number]) OFFICE/OUTPATIENT VISIT, EST Vonnie Romulojuan miguel NELSON JustinKim [address] CPT-4: 08722 02/23/2010 ([id number]) OFFICE/OUTPATIENT VISIT, EST Vonnie MATHEWS [address] CPT-4: 49246 01/12/2010 Plan of Care Planned Activity Notes [...] him that pens can be purchased on [employer]. ICD-9 : 333.1 ICD-10 : G25.0 09/24/2019 Visit Diagnosis Plan: Noninfective gastroenteritis and colitis, unspecified Discussion: Flagyl Mono diet Update colonoscopy ICD-9 : 558.9 ICD-10 : K52.9 05/26/2019 Visit Diagnosis Plan: Hemorrhage of anus and rectum Di scussion: Update colonoscopy ICD-9 : 569.3 ICD-10 : K62.5 05/26/2019 Appointment: [facility] [phone] [facility] [place] [facility] request faxed 05/23; LM with medical records 05/26/19 Hospital Follow Up 05/26/2019 Care Plan: Referral Order SNOMED-CT : 30 [id number] Pending 05/26/2019 Visit Diagnosis Plan: Other intervertebral disc degene ration, lumbar region Discussion: Increase lyrica to 150mg po q HS Continue stretches from PT [facility] on [facility] 12 Fwup after that appointment ICD-9 : 722.52 ICD-10 : M51.36 03/17/2019 Appointment: Vonnie Mathews [facility]el[facility] [phone] [facility] [facility] FOLLOW UP 03/17/2019 Visit Diagnosis Plan: Other intervertebral disc degene ration, lumbar region Discussion: Start PT Referral for epidural Will start lyrica 75mg po q HS once CT scan results obtained [facility] ambien Follow Up: 3 weeks ICD-9 [...] : R29.898 02/18/2019 Appointment: Vonnie Mathews WPtel: [address] [place] [address] FOLLOW UP 02/18/2019 Appointment: Vonnie Mathews WPtel: [address] [place] [address] [place] CANCELED 02/18/2019 Visit Diagnosis Plan: Other [...] J30.89 01/13/2019 Appointment: Akilah Lopez [address] [place] [address] [place] Due for annual wellness ACUTE ILLNESS 01/14/20 19 Appointment: Vonnie Mathews WPtel: [address] [place], [place] [phone] [place] LAB 09/04/2018 Visit Diagnosis Plan: Impacted [...] : H92.12 09/03/2018 Appointment: Verna Ramirez [address] ACUTE ILLNESS 09/03/2018 Visit Diagnosis Plan: [...] M51.36 08/26/2018 Appointment: Vonnie Mathews WPtel: [phone] [facility] [place] FOLLOW UP 08/26/2018 Visit Diagnosis [...] ICD-10 : R10.2 05/15/2018 Appointment: Verna Ramirez [address] [place], [place] [id number] ACUTE ILLNESS 05/15/2018 Patient Education: Patient Medication Summary Completed 05/15/2018 Care Plan: US EXAM PELVIC COMPLETE scrotal LOINC : 14093-3 Pending 05/15/2018 Visit Diagnosis Plan: Other intervertebral [...] ICD-10 : I73.00 04/25/2018 Appointment: Verna Ramirez [address] [place] [address] MEDICATION REVIEW 04/25/2018 Patient Education: Patient Medication Summary Completed 04/25/2018 Appointment: Vonnie Mathews WPtel: [address] [place] [address] 11/16/2017 Patient Education: Patient Medication Summary Completed [...] L50.1 11/06/2017 Appointment: Vonnie Mathews WPtel: [address] [place] [address] FOLLOW UP 11/06/2017 Patient Education: Patient Medication [...] ICD-10 : R63.4 09/03/2017 Appointment: Vonnie Mathewstel: [address] [place], [place] [phone] [place] FOLLOW UP 09/03/2017 Patient Education: Patient [...] Diagnosis Plan: Atherosclerotic he art disease of [place] coronary artery without angina pectoris Discussion: Sees Cardiology in 2 days To ER if CP returns before ICD-9 : 414.00 ICD-10 : I25.10 08/21/2017 Appointment: Vonnie Mathewstel: [address] [place], [place] [phone] [place] FOLLOW UP 08/21/2017 Patient Education: Patient Medication Summary Completed 08/21/2017 Appointment: Vonnie Mathewstel: [address] [place], [place] [phone] [place] LAB 07/31/2017 Patient Education: Patient Medication Summary Completed 07/31/2017 Appointment: Vonnie Mathews WPtel: [address] [place], [place] [phone] [place] INJECTION 07/04/2017 Patient Education: Patient Medication Summary Completed 07/04/2017 Appointment: Vonnie Mathews WPtel: [address] [place], [place] [phone] [place] LAB 02/26/2017 Patient Education: Patient Medication Summary Completed 02/26/2017 Visit Diagnosis Plan: Essential tremor Discussion: Con tinue clonazepam at 1mg q AM and primidone 50mg q HS Follow Up: 3 months ICD-9 : 333.1 ICD-10 : G25.0 02/13/2017 Appointment: Vonnie Mathews WPtel: [address] [place], [place] [phone] 02/08 confirmed~sl FOLLOW UP 02/13/2017 Patient Education: Patient Medication Summary Completed 02/13/2017 Appointment: Vonnie Mathews WPtel: [address] [place], [place] [phone] RESCHEDULED 01/23/2017 Visit Diagnosis Plan: Other intervertebral disc degene ration, lumbar region Discussion: DC oxycodone Tramadol 50mg 1-2 po TID prn pain Follow Up: 2 months ICD-9 : 722.52 ICD-10 : M51.36 11/23/2016 Visit Diagnosis Plan: Essential tremor Discussion: Inc rease clonazepam to 1mg po BID Discussed sinemet ICD-9 : 333.1 ICD-10 : G25.0 11/23/2016 Appointment: Vonnie Mathews WPtel: [address] [place], [place] [phone] 11/22 confirmed~sl MEDICATION REVIEW 11/23/2016 Patient Education: Patient Medication Summary Completed 11/23/2016 Patient Education: [facility] - [employer] - Clonazepam - 18-64 - Dynamic Portal ID Completed 11/23/2016 Appointment: Vonnie Mathews WPtel: [address] [place], [place] [phone] [place] INJECTION 06/28/2016 Patient Education: Patient Medication Summary Completed 06/28/2016 Referral: Fernando Day WPtel: #1 [facility] Shilpa Lopez [id number] per Maribeth, the patient is sched [...] if worsening 05/23/2016 Appointment: Vonnie Mathews WPtel: [address] [place], [place] [phone] ER Follow UP 05/23/2016 Patient Education: Patient Medication Summary Completed 05/23/2016 Appointment: Vonnie Mathews WPtel: [address] [place], [place] [phone] [place] LAB 05/19/2016 Patient Education: Patient Medication Summary Completed 05/19/2016 Visit Plan: Change coreg to 3.125mg BID Trial of low dose clonazepam 0.5mg BID for tremors Fwup with Dr. Ramsey as scheduled Return for fasting lab--CBC, CMP, TSH, free T4, Lipids, PSA, B12 Proceed with Colonoscopy 05/10/2016 Appointment: Vonnie Mathews WPtel: [address] [place] [phone] 05/09 confirmed~sl Annual Well Visit 05/10/2016 Patient Education: Patient Medication Summary Completed 05/10/2016 Care Plan: Referral Order SNOMED-CT : 30 [id number] Pending 05/10/2016 Appointment: Vonnie Mathews WPtel: [address] [place] [phone] [place] Rescheduled for 05/10/16 at 2PM~lb RESCHEDULED 04/26/2016 Referral: Danilo Ramsey WPtel: [facility] Denia Mercado [id number] [place] Referral Initiated 04/29/2015 Appointment: Vonnie Mathews WPtel: [address] [place], [place] [phone] [place] LAB 04/05/2015 Patient Education: Patient Medication Summary Completed 04/05/2015 Visit Plan: Return in AM for fasting lab --CMP, lipids, CBC, TSH, PSA Change hydrocodone to oxycodone 7.5/325mg 1-2 po TID Schedule with cardiology Needs colonoscopy once cardiology evaluation complete Will need to restart chol meds after lab Recheck 1mo on pain meds 04/01/2015 Appointment: Vonnie Mathews WPtel: [address] [place], [place] [phone] 03/31 confirmed -mf PHYSICAL 04/01/2015 Patient Education: Patient Medication Summary Completed 04/01/2015 Appointment: Vonnie Mathews WPtel: [address] [place] [address] Annual Well Visit 09/23/2014 Visit Plan: Continue protonix Pt has fwu p with Card next month Rec chiropracter or PT for ribs/thoracics being out and could be contributing to chest pain 01/13/2014 Appointment: Vonnie Mathews WPtel: [address] [place], [place] [phone] FOLLOW UP 01/13/2014 Patient Education: Patient Medication Summary Completed 01/13/2014 Appointment: Ariella Mcnally WPtel: [address] [place] [address] [place] FOLLOW UP 12/12/2013 Appointment: Malika Cárdenas WPtel: [address] [place], [place] [phone] PHYSICAL 12/12/2013 Appointment: Vonnie Mathews WPtel: [address] [place], [place] [phone] ACUTE ILLNESS 02/20/2013 Appointment: Vonnie Mathews WPtel: [address] [place], [place] [phone] [place] LAB 07/19/2012 Patient Education: Patient Medication Summary Completed 07/19/2012 Appointment: Vonnie Mathews WPtel: [address] [place], [place] [phone] [place] FOLLOW UP 04/03/2012 Patient Education: Patient Medication Summary Completed 04/03/2012 Appointment: Vonnie Mathews WPtel: [address] [place] [address] ACUTE ILLNESS 03/22/2012 Patient Education: Patient Medication Summary Completed 03/22/2012 Appointment: Vonnie Mathews WPtel: [address] [place] [address] FOLLOW UP 12/26/2011 Visit Plan: Add Cipro Continue current m eds 12/20/2011 Appointment: Vonnie Mathews WPtel: [address] [place] [address] ACUTE ILLNESS 12/20/2011 Patient Education: Patient Medication Summary Completed 12/20/2011 Visit Plan: Change neurontin to Cymbalta 30mg for 1wk then 60mg QD Add Propranolol for tremor 10/24/2011 Appointment: Vonnie Mathews WPtel: [address] [place] [address] ACUTE ILLNESS 10/24/2011 Appointment: Vonnie Mathews WPtel: [address] [place] [address] ACUTE ILLNESS 10/24/2011 Patient Education: Patient Medication Summary Completed 10/24/2011 Visit Plan: Continue current meds and fw up with Card as scheduled 03/13/2011 Appointment: Vonnie Mathews WPtel: [address] [place] [address] FOLLOW UP 03/13/2011 Patient Education: Patient Medication Summary Completed 03/13/2011 Visit Plan: Will obtain all records and lab from [facility]illaume Discussed will likely need heart cath which pt states that Card did talk to him about in the hospital 02/20/2011 Appointment: Vonnie Mathews WPtel: [address] [place] [address] ACUTE ILLNESS 02/20/2011 Patient Education: Patient Medication Summary Completed 02/20/2011 Visit Plan: Cont Pepcid and Prilosec See Card for cardiac cath. 02/23/2010 Appointment: Vonnie Mathews WPtel: [address] [place], [place] [phone] FOLLOW UP 02/23/2010 Patient Education: Patient Medication Summary Completed 02/23/2010 Visit Plan: Increase Pamelor to 75mg qhs Increase Hydrocodone to 10/325mg 1-2 po q6 prn 01/12/2010 Appointment: Vonnie Mathews WPtel: [phone] [facility] ACUTE ILLNESS 01/12/2010 Patient Education: Patient Medication Summary Completed 01/12/2010 Referral: Iván Pardo WPtel: [facility] [address] Referral Initiated Referral: Fernando Day WPtel: [address] [place] [address] [place] Referral Completed Referral: Fernando Day WPtel: #1 [facility] Referral Appointment Requested Instructions Comment . [...]
--- OUTSIDE RECORDS SUMMARY | 2020-02-10 08:35 | XMS REPORT | CCD ---
Author Author Nash Mathews D.O. 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 Name Role Phone Vonnie Mathews D.O., PP Unavailable CCM Unavailable Summary Purpose Interface Exchange Insurance Providers Payer name Policy type / Coverage type Covered green party ID Effective Begin Date Effective End Date WPS MEDICARE [place] B [place] Part B [id number] 2018 Unknown Family History Family History data not found Social History Social History Element Codes Description Effective Dates Marital status Unknown 10/24/[address]: 437606969 Nonsmoker 03/29/2011 Allergies, Adverse Reactions, Alerts Substance [...] R63.4 08/21/2017 Active 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: [...] Fill Instructions clonazepam 1 mg tablet RxNorm: 183884 TAKE 1 TABLET BY MOUTH EV SUSAN AM 08/21/2019 09/19/2019 Active Singulair 10 mg tablet RxNorm: 950924 TABLET(S) 1 TABLET(S) PO QD 1 10/11/2019 Active Flagyl 500 mg tablet RxNorm: 741161 1 Tablet(s) PO TID 05/26/2019 Inactive clonazepam 1 mg tablet RxNorm: 070647 TAKE 1 TABLET BY MOUTH EV SUSAN MORNING 05/23/2019 06/21/2019 Inactive pravastatin 20 mg tablet RxNorm: 212975 1 Tablet(s) PO QD 04/14/2019 10/10/2019 Active Needs updated fasting labs Singulair 10 mg tablet RxNorm: 753057 Tablet(s) 1 TABLET(S) PO QD 0 04/14/2019 07/12/2019 Inactive clonazepam 1 mg tablet RxNorm: 889576 1 Tablet(s) PO QAM 02/21/2019 0 05/23/2019 Inactive Bevespi Aerosphere 9 mcg-4.8 mcg HFA aerosol inhaler RxNorm: 5694347 2 Puff(s) INH BID 02/19/2019 No Stop Date Active ProAir HFA 90 mcg/actuation aerosol inhaler RxNorm: 862190 2 Puff(s) INH Q4H as needed 02/19/2019 No Stop Date Active metoprolol tartrate 25 mg tablet RxNorm: 608767 1/2 Tablet(s) PO BI D 02/18/2019 05/18/2019 Inactive pravastatin 20 mg tablet RxNorm: 793045 1 Tablet(s) PO QD Needs updated fasting labs 01/13/2019 04/14/2019 Inactive Needs updated fa sting labs Singulair 10 mg tablet RxNorm: 491773 Tablet(s) 1 TABLET(S) PO QD 0 01/13/2019 04/12/2019 Inactive Plavix 75 mg tablet RxNorm: 010989 Tablet(s) 1 TABLET(S) PO QD 04/201906/20/2019 Inactive [SAVINGS FOR NON-COVERED SHANDA -- BIN:990123, PCN: ASPROD1, Group: XXXXX, ID# [id number], Questions: . THIS IS NOT INSURANCE.] Singulair 10 mg tablet RxNorm: 153383 1 TABLET(S) PO QD 10/29/2018 Inactive primidone 50 mg tablet RxNorm: 463609 2 TABLET(S) PO BI D TAKE 2 TABLETS BY MOUTH EVERY NIGHT AT BEDTIME 10/07/2018 01/12/2019 Inactive Patient requests 90 days supply pravastatin 20 mg tablet RxNorm: 287732 1 TABLET(S) PO QD 09/23/2018 01/12/2019 Inactive clonazepam 1 mg tablet RxNorm: 763550 1 Tablet(s) PO QAM 09/19/2018 0 12/17/2018 Inactive primidone 50 mg tablet RxNorm: 670189 TABLET(S) TAKE 2 TABLETS BY MOUTH EVERY NIGHT AT BEDTIME 09/18/2018 01/12/2019 Inactive ciprofloxacin 0.2 % ear drops in a dropperette RxNorm: 67795 6 2 Drop(s) left otic (ear) BID 09/03/2018 09/09/2018 Inactive primidone 50 mg tablet RxNorm: 613838 2 Tablet(s) PO BI D TAKE 2 TABLETS BY MOUTH EVERY NIGHT AT BEDTIME 08/26/2018 10/06/2018 Inactive Ambien 5 mg tablet RxNorm: 322350 TAKE 1 TABLET BY MOUTH EVERY NIGHT AT BEDTIME 08/05/2018 09/03/2018 Inactive Singulair 10 mg tablet RxNorm: 293850 1 TABLET(S) PO QD 07/23/2018 Inactive clonazepam 1 mg tablet RxNorm: 850642 TAKE 1 TABLET BY MOUTH EV SUSAN MORNING 07/23/2018 08/21/2018 Inactive Plavix 75 mg tablet RxNorm: 895425 1 TABLET(S) PO QD 07/04/201812/22 Inactive [SAVINGS FOR NON-COVERED DRUGS -- BIN:00 8315, PCN: ASPROD1, Group: XXXXX, ID# [id number], Questions: . THIS IS NOT INSURANCE.] clonazepam 1 mg tablet RxNorm: 936310 TAKE 1 TABLET BY MOUTH EV SUSAN MORNING 06/25/2018 07/23/2018 Inactive clonazepam 1 mg tablet RxNorm: 660213 TAKE 1 TABLET BY MOUTH EV SUSAN MORNING 05/23/2018 06/21/2018 Inactive primidone 50 mg tablet RxNorm: 306547 Tablet(s) TAKE 2 TABLETS BY MOUTH EVERY NIGHT AT BEDTIME 05/16/2018 08/25/2018 Inactive oxycodone-acetaminophen 7.5 mg-325 mg tablet RxNorm: 9042448 1-2 Tablet(s) PO TID as needed 04/25/2018 05/24/2018 Inactive Singulair 10 mg tablet RxNorm: 948946 1 Tablet(s) PO QD 04/25/2018 Inactive Medrol (Jose) 4 mg tablets in a dose pack RxNorm: 225212 Tablet(s) PO take as directed 04/25/2018 09/02/2018 Inactive clonazepam 1 mg tablet RxNorm: 273632 TAKE 1 TABLET BY MOUTH EV SUSAN MORNING 04/24/2018 05/22/2018 Inactive Plavix 75 mg tablet RxNorm: 734296 1 TABLET(S) PO QD 04/04/201807/02 Inactive [SAVINGS FOR NON-COVERED DRUGS -- BIN:00 3585, PCN: ASPROD1, Group: XXXXX, ID# [id number], Questions: . THIS IS NOT INSURANCE.] pravastatin 20 mg tablet RxNorm: 969575 1 Tablet(s) PO QD 03/21/2018 09/16/2018 Inactive ProAir HFA 90 mcg/actuation aerosol inhaler RxNorm: 902329 2 Puff(s) INH Q4H as needed 03/18/2018 03/17/2018 Inactive tamsulosin 0.4 mg capsule RxNorm: 002070 1 CAPSULE(S) PO QD 018 01/12/2019 Inactive clonazepam 1 mg tablet RxNorm: 720848 1 Tablet(s) PO QAM 02/25/2018 0 04/25/2018 Inactive tamsulosin 0.4 mg capsule RxNorm: 428312 1 Capsule(s) PO QD 018 03/13/2018 Inactive tamsulosin 0.4 mg capsule RxNorm: 085793 1 Capsule(s) PO QD 018 02/03/2018 Inactive tamsulosin 0.4 mg capsule RxNorm: 529159 1 Capsule(s) PO QD 018 02/12/2018 Inactive Ambien 5 mg tablet RxNorm: 011926 Tablet(s) TAKE 1 TAB LET BY MOUTH EVERY NIGHT AT BEDTIME 01/24/2018 08/05/2018 Inactive primidone 50 mg tablet RxNorm: 145938 Tablet(s) TAKE 2 TABLETS BY MOUTH EVERY NIGHT AT BEDTIME 01/18/2018 05/16/2018 Inactive cyclobenzaprine 10 mg tablet RxNorm: 032400 1 Tablet(s) PO TID as needed for muscle spasm 01/11/2018 02/09/2018 Inactive [SAVINGS FOR NON -COVERED DRUGS -- BIN:771733, PCN: ASPROD1, Group: XXXXX, ID# [id number], Questions: . THIS IS NOT INSURANCE.] clonazepam 1 mg tablet RxNorm: 056680 1 Tablet(s) PO QAM 12/24/2017 0 02/21/2018 Inactive EpiPen 2-Jose 0.3 mg/0.3 mL injection, auto-injector RxNorm: 427434 1 Unit Dose IM as needed 11/06/2017 No Stop Date Active prednisone 20 mg tablet RxNorm: 899832 1 Tablet(s) PO QD 11/06/2017 0 11/10/2017 Inactive ProAir HFA 90 mcg/actuation aerosol inhaler RxNorm: 114439 2 Puff(s) INH Q4H as needed 10/30/2017 03/17/2018 Inactive primidone 50 mg tablet RxNorm: 033863 TAKE 2 TABLETS BY MOUTH EVERY NIGHT AT BEDTIME 10/15/2017 01/17/2018 Inactive Plavix 75 mg tablet RxNorm: 462160 1 Tablet(s) PO QD 10/01/201703/29 Inactive [SAVINGS FOR NON-COVERED DRUGS -- BIN:00 6075, PCN: ASPROD1, Group: XXXXX, ID# [id number], Questions: . THIS IS NOT INSURANCE.] clonazepam 1 mg tablet RxNorm: 716317 1 Tablet(s) PO QAM 09/19/2017 0 12/16/2017 Inactive primidone 50 mg tablet RxNorm: 636205 2 Tablet(s) PO QHS 08/29/2017 0 01/18/2018 Inactive oxycodone-acetaminophen 7.5 mg-325 mg tablet RxNorm: 0349743 1-2 Tablet(s) PO TID as needed 08/22/2017 09/19/2017 Inactive pravastatin 20 mg tablet RxNorm: 125034 1 Tablet(s) PO QD 08/21/2017 03/21/2018 Inactive carvedilol 3.125 mg tablet RxNorm: 874828 1 Tablet(s) P O BID to replace 6.25mg dose 08/21/2017 09/02/2017 Inactive primidone 50 mg tablet RxNorm: 283989 TAKE 2 TABLETS BY MOUTH EVERY NIGHT AT BEDTIME 06/18/2017 08/28/2017 Inactive clonazepam 1 mg tablet RxNorm: 100494 1 Tablet(s) PO QAM 06/04/2017 1 11/02/2016 Inactive Plavix 75 mg tablet RxNorm: 034568 1 Tablet(s) PO QD 04/10/201710/01 Inactive [SAVINGS FOR NON-COVERED DRUGS -- BIN:00 7904, PCN: ASPROD1, Group: XXXXX, ID# [id number], Questions: . THIS IS NOT INSURANCE.] pravastatin 20 mg tablet RxNorm: 598343 1 Tablet(s) PO QD 02/26/2017 08/24/2017 Inactive carvedilol 3.125 mg tablet RxNorm: 186492 1 Tablet(s) P O BID to replace 6.25mg dose 02/26/2017 08/21/2017 Inactive Ultram 50 mg tablet RxNorm: 307919 TAKE 1 TO 2 TABLETS BY MOUTH THREE TIMES DAILY NEEDED FOR PAIN 02/26/2017 03/07/2017 Inactive pravastatin 20 mg tablet RxNorm: 829589 1 Tablet(s) PO QD 02/26/2017 08/21/2017 Inactive carvedilol 3.125 mg tablet RxNorm: 851151 1 Tablet(s) P O BID to replace 6.25mg dose 02/26/2017 08/20/2017 Inactive clonazepam 0.5 mg tablet RxNorm: 203410 1 Tablet(s) PO QAM 02/14/20 17 02/13/2017 Inactive primidone 50 mg tablet RxNorm: 709417 1 Tablet(s) PO QHS 02/13/2017 0 05/01/2017 Inactive clonazepam 1 mg tablet RxNorm: 194008 1 Tablet(s) PO QAM 02/13/2017 0 05/13/2017 Inactive primidone 50 mg tablet RxNorm: 587927 1/2 Tablet(s) PO QD for 7 days then increase to 1 tablet at bedtime 01/09/2017 02/12/2017 Inactive pravastatin 20 mg tablet RxNorm: 027124 Tablet(s) 1 TABLET(S) PO QD 11/29/2016 02/25/2017 Inactive clonazepam 1 mg tablet RxNorm: 135761 1 Tablet(s) PO BID replac es 0.5mg dose 11/23/2016 01/08/2017 Inactive pravastatin 20 mg tablet RxNorm: 312819 1 TABLET(S) PO QD 11/17/2016 11/28/2016 Inactive Ambien 5 mg tablet RxNorm: 352209 TAKE 1 TABLET BY MOUTH EVERY NIGHT AT BEDTIME 11/17/2016 12/14/2016 Inactive clonazepam 0.5 mg tablet RxNorm: 717419 TAKE 1 TABLET BY MOUTH TWICE DAILY 11/17/2016 11/22/2016 Inactive Plavix 75 mg tablet RxNorm: 816512 1 Tablet(s) PO QD 11/06/201604/09 Inactive [SAVINGS FOR NON-COVERED DRUGS -- BIN: 3585, PCN: ASPROD1, Group: XXXXX, ID# [id number], Questions: . THIS IS NOT INSURANCE.] Plavix 75 mg tablet RxNorm: 807764 1 Tablet(s) PO QD 08/28/201611/05 Inactive [SAVINGS FOR NON-COVERED DRUGS -- BIN: 3585, PCN: ASPROD1, Group: XXXXX, ID# [id number], Questions: . THIS IS NOT INSURANCE.] Lidoderm 5 % topical patch RxNorm: 7695377 Application T OP 2 patches for 12hrs then off for 12hrs 08/28/2016 08/27/2016 Inactive clonazepam 0.5 mg tablet RxNorm: 329867 1 Tablet(s) PO BID 08/07/20 16 11/22/2016 Inactive pravastatin 20 mg tablet RxNorm: 494438 1 Tablet(s) PO QD 08/07/2016 11/04/2016 Inactive cyclobenzaprine 10 mg tablet RxNorm: 280393 1 Tablet(s) PO TID as needed for muscle spasm 08/07/2016 09/05/2016 Inactive [SAVINGS FOR NON -COVERED DRUGS -- BIN:571467, PCN: ASPROD1, Group: XXXXX, ID# [id number], Questions: . THIS IS NOT INSURANCE.] Plavix 75 mg tablet RxNorm: 034948 1 Tablet(s) PO QD 08/07/201608/27 Inactive [SAVINGS FOR NON-COVERED DRUGS -- BIN:00 3585, PCN: ASPROD1, Group: XXXXX, ID# [id number], Questions: . THIS IS NOT INSURANCE.] carvedilol 3.125 mg tablet RxNorm: 034826 1 Tablet(s) P O BID to replace 6.25mg dose 08/07/2016 02/02/2017 Inactive clonazepam 0.5 mg tablet RxNorm: 554558 1 Tablet(s) PO BID 07/04/2008/07/2016 Inactive Plavix 75 mg tablet RxNorm: 413683 1 TABLET(S) PO QD 06/20/201608/06 Inactive [SAVINGS FOR NON-COVERED DRUGS -- BIN: 3585, PCN: ASPROD1, Group: XXXXX, ID# [id number], Questions: . THIS IS NOT INSURANCE.] clonazepam 0.5 mg tablet RxNorm: 406704 1 Tablet(s) PO BID 06/09/20 16 07/03/2016 Inactive pravastatin 20 mg tablet RxNorm: 793411 1 Tablet(s) PO QD 05/23/2016 08/06/2016 Inactive pravastatin 20 mg tablet RxNorm: 717752 1 Tablet(s) PO QD 05/23/2016 05/22/2016 Inactive carvedilol 3.125 mg tablet RxNorm: 589356 1 Tablet(s) P O BID to replace 6.25mg dose 05/10/2016 08/06/2016 Inactive carvedilol 3.125 mg tablet RxNorm: 505368 1 Tablet(s) P O BID to replace 6.25mg dose 05/10/2016 05/09/2016 Inactive clonazepam 0.5 mg tablet RxNorm: 876267 1 Tablet(s) PO BID 05/10/20 16 06/08/2016 Inactive carvedilol 6.25 mg tablet RxNorm: 359398 1 Tablet(s) PO QD 05/10/20 16 05/10/2016 Inactive simvastatin 40 mg tablet RxNorm: 959198 1 TABLET(S) PO QD 04/10/2016 05/09/2016 Inactive Medrol (Jose) 4 mg tablets in a dose pack RxNorm: 125193 Tablet(s) PO As Directed 01/13/2016 05/09/2016 Inactive cyclobenzaprine 10 mg tablet RxNorm: 699397 1 TABLET(S) PO TID NEEDED FOR SPASM 01/11/2016 03/10/2016 Inactive [SAVINGS FOR NON -COVERED DRUGS -- BIN:998771, PCN: ASPROD1, Group: XXXXX, ID# [id number], Questions: . THIS IS NOT INSURANCE.] Plavix 75 mg tablet RxNorm: 491894 1 Tablet(s) PO QD 12/30/201506/19 Inactive [SAVINGS FOR NON-COVERED DRUGS -- BIN:00 3585, PCN: ASPROD1, Group: XXXXX, ID# [id number], Questions: . THIS IS NOT INSURANCE.] Ambien 5 mg tablet RxNorm: 219554 TAKE 1 TABLET BY MOUTH EVERY DAY AT BEDTIME 11/15/2015 11/17/2016 Inactive simvastatin 40 mg tablet RxNorm: 216864 1 Tablet(s) PO QD 10/11/2015 01/12/2019 Inactive simvastatin 40 mg tablet RxNorm: 802985 1 Tablet(s) PO QD 10/08/2015 10/10/2015 Inactive Ambien 5 mg tablet RxNorm: 152680 TAKE 1 TABLET BY MOUTH EVERY NIGHT AT BEDTIME 07/27/2015 11/15/2015 Inactive Plavix 75 mg tablet RxNorm: 606168 1 Tablet(s) PO QD 06/28/201512/29 Inactive [SAVINGS FOR NON-COVERED DRUGS -- BIN: 3585, PCN: ASPROD1, Group: XXXXX, ID# [id number], Questions: . THIS IS NOT INSURANCE.] Coreg 6.25 mg tablet RxNorm: 985366 1 TABLET(S) PO BID 04/19/2015 Inactive [SAVINGS FOR NON-COVERED DRUGS -- BIN:00 3585, PCN: ASPROD1, Group: XXXXX, ID# [id number], Questions: . THIS IS NOT INSURANCE.] simvastatin 40 mg tablet RxNorm: 895441 1 Tablet(s) PO QD 04/05/2015 04/04/2015 Inactive simvastatin 40 mg tablet RxNorm: 055997 1 Tablet(s) PO QD 04/05/2015 10/11/2015 Inactive Plavix 75 mg tablet RxNorm: 100761 1 TABLET(S) PO QD 03/22/201504/20 Inactive [SAVINGS FOR NON-COVERED DRUGS -- BIN:00 3585, PCN: ASPROD1, Group: XXXXX, ID# [id number], Questions: . THIS IS NOT INSURANCE.] Plavix 75 mg tablet RxNorm: 791559 1 Tablet(s) PO QD 03/22/201506/28 Inactive [SAVINGS FOR NON-COVERED DRUGS -- BIN:00 3585, PCN: ASPROD1, Group: XXXXX, ID# [id number], Questions: . THIS IS NOT INSURANCE.] Ambien 5 mg tablet RxNorm: 311537 1 Tablet(s) PO QHS 12/17/201407/28 Inactive [SAVINGS FOR NON-COVERED DRUGS -- BIN:00 3585, PCN: ASPROD1, Group: XXXXX, ID# [id number], Questions: . THIS IS NOT INSURANCE.] Coreg 6.25 mg tablet RxNorm: 902525 1 Tablet(s) PO BID 12/17/2014 Inactive [SAVINGS FOR NON-COVERED DRUGS -- BIN:00 3585, PCN: ASPROD1, Group: XXXXX, ID# XXXXXXX, Questions: . THIS IS NOT INSURANCE.] Plavix 75 mg tablet RxNorm: 552917 1 Tablet(s) PO QD 12/17/201403/16 Inactive [SAVINGS FOR NON-COVERED DRUGS -- BIN:00 3585, PCN: ASPROD1, Group: XXXXX, ID# XXXXXXX, Questions: . THIS IS NOT INSURANCE.] cyclobenzaprine 10 mg tablet RxNorm: 476177 1 Tablet(s) PO TID as needed for spasm 12/17/2014 03/16/2015 Inactive [SAVINGS FOR NON -COVERED DRUGS -- BIN:069007, PCN: ASPROD1, Group: XXXXX, ID# [id number], Questions: . THIS IS NOT INSURANCE.] Coreg 6.25 mg tablet RxNorm: 031201 1 Tablet(s) PO BID 10/21/201409/2014 Inactive [SAVINGS FOR NON-COVERED DRUGS -- BIN:00 3585, PCN: ASPROD1, Group: XXXXX, ID# [id number], Questions: . THIS IS NOT INSURANCE.] Plavix 75 mg tablet RxNorm: 560591 1 Tablet(s) PO QD 10/21/201412/16 Inactive [SAVINGS FOR NON-COVERED DRUGS -- BIN:00 3585, PCN: ASPROD1, Group: XXXXX, ID# XXXXXXX, Questions: . THIS IS NOT INSURANCE.] Plavix 75 mg tablet RxNorm: 221061 1 Tablet(s) PO QD Ne [facility] check up--last seen March 2012 09/21/2014 10/20/2014 Inactive [SAVINGS FOR UNINSURED PATIENTS -- BIN:761987, PCN: ASPROD1, Group: AME08, ID# [id number], Process claim through [employer], for questions: . THIS IS NOT INSURANCE.] Ambien 5 mg tablet RxNorm: 442490 1 Tablet(s) PO QHS 09/21/201412/16 Inactive [SAVINGS FOR UNINSURED PATIENTS -- BIN:0 61927, PCN: ASPROD1, Group: AME08, ID# [id number], Process claim through [employer], for questions: . THIS IS NOT INSURANCE.] Coreg 6.25 mg tablet RxNorm: 726914 1 Tablet(s) PO BID 09/21/201411/2014 Inactive [SAVINGS FOR UNINSURED PATIENTS -- BIN:0 94109, PCN: ASPROD1, Group: AME08, ID# [id number], Process claim through [employer], for questions: . THIS IS NOT INSURANCE.] Plavix 75 mg tablet RxNorm: 732670 1 Tablet(s) PO QD Ne eds routine check up--last seen March 2012 08/04/2014 09/02/2014 Inactive [SAVINGS FOR UNINSURED PATIENTS -- BIN:573007, PCN: ASPROD1, Group: AME08, ID# [id number], Process claim through [employer], for questions: . THIS IS NOT INSURANCE.] Plavix 75 mg tablet RxNorm: 122398 1 Tablet(s) PO QD Ne eds routine check up--last seen March 2012 08/03/2014 08/03/2014 Inactive Protonix 40 mg tablet,delayed release RxNorm: 785052 1 Tablet(s ) PO QD 06/08/2014 02/17/2019 Inactive [SAVINGS FOR UNINSUR ED PATIENTS -- BIN:831889, PCN: ASPROD1, Group: AME08, ID# [id number], Process claim through [employer], for questions: . THIS IS NOT INSURANCE.] hydrocodone 10 mg-acetaminophen 325 mg tablet RxNorm: 869813 1 Tablet(s) PO BID as needed for pain 02/18/2014 03/31/2015 Inactive Coreg 6.25 mg tablet RxNorm: 579554 1 Tablet(s) PO BID 02/02/2014 Inactive Protonix 40 mg granules delayed-release packet RxNorm: 734954 1 Tablet(s) PO QD 01/13/2014 06/08/2014 Inactive Plavix 75 mg tablet RxNorm: 577035 1 Tablet(s) PO QD Ne eds routine check up--last seen March 2012 01/13/2014 08/02/2014 Inactive Plavix 75 mg tablet RxNorm: 700549 1 Tablet(s) PO QD Ne eds routine check up--last seen March 2012 12/09/2013 01/07/2014 Inactive Coreg 6.25 mg tablet RxNorm: 610495 1 Tablet(s) PO BID 12/09/2013 Inactive Cymbalta 60 mg capsule,delayed release RxNorm: 761666 1 Capsule (s) PO QD 10/31/2013 01/12/2014 Inactive Coreg 6.25 mg tablet RxNorm: 929299 1 Tablet(s) PO BID 10/31/2013 Inactive Plavix 75 mg tablet RxNorm: 073692 1 Tablet(s) PO QD Ne eds routine check up--last seen March 2012 10/31/2013 11/29/2013 Inactive Coreg 6.25 mg tablet RxNorm: 163393 1 Tablet(s) PO BID 10/31/2013 Inactive atorvastatin 40 mg tablet RxNorm: 442588 1 Tablet(s) PO QD 10/31/19 14 03/31/2015 Inactive Plavix 75 mg tablet RxNorm: 093028 1 Tablet(s) PO QD Ne eds routine check up--last seen March 2012 09/23/2013 10/30/2013 Inactive cyclobenzaprine 10 mg tablet RxNorm: 432546 1 Tablet(s) PO TID as needed for spasm 09/23/2013 No Stop Date Active cyclobenzaprine 10 mg tablet RxNorm: 424153 1 Tablet(s) PO TID as needed for spasm 07/04/2013 09/22/2013 Inactive atorvastatin 40 mg tablet RxNorm: 316598 1 Tablet(s) PO QD 06/23/20 13 10/30/2013 Inactive atorvastatin 40 mg tablet RxNorm: 091136 1 Tablet(s) PO QD 04/22/20 13 06/22/2013 Inactive Nucynta 50 mg tablet RxNorm: 931340 1-2 Tablet(s) PO Q6H as nee ded for pain 01/01/2013 01/12/2014 Inactive Ambien 5 mg tablet RxNorm: 440979 1 Tablet(s) PO QHS 10/16/201201/13 Inactive Plavix 75 mg tablet RxNorm: 552896 1 Tablet(s) PO QD 09/19/201209/13 Inactive Protonix 40 mg tablet,delayed release RxNorm: 571466 1 Tablet(s ) PO QD 09/19/2012 09/18/2012 Inactive simvastatin 40 mg tablet RxNorm: 655646 1 Tablet(s) PO QD 09/19/2012 02/23/2013 Inactive Protonix 40 mg tablet,delayed release RxNorm: 111204 1 Tablet(s ) PO QD 09/19/2012 09/13/2013 Inactive Ultram 50 mg tablet RxNorm: 975861 1-2 Tablet(s) PO QID as need ed for pain 09/19/2012 02/26/2017 Inactive propranolol 80 mg tablet RxNorm: 371770 1 Tablet(s) PO QHS 09/19/19 13 09/18/2012 Inactive Cymbalta 60 mg capsule,delayed release RxNorm: 622563 1 Capsule (s) PO QD 09/19/2012 09/18/2012 Inactive Cymbalta 60 mg capsule,delayed release RxNorm: 867749 1 Capsule (s) PO QD 09/19/2012 03/17/2013 Inactive propranolol 80 mg tablet RxNorm: 412946 1 Tablet(s) PO QHS 09/19/19 13 02/23/2013 Inactive hydrocodone-acetaminophen 10 mg-325 mg tablet RxNorm: 263983 2 1-2 Tablet(s) PO QID 07/25/2012 02/23/2013 Inactive Ambien 10 mg tablet RxNorm: 626161 1 Tablet(s) PO QHS as needed for sleep 07/10/2012 01/27/2013 Inactive propranolol 80 mg tablet RxNorm: 809991 1 Tablet(s) PO QHS 05/13/20 12 09/18/2012 Inactive hydrocodone-acetaminophen 10 mg-325 mg tablet RxNorm: 197713 2 1-2 Tablet(s) PO QID 05/02/2012 No Stop Date Active Restoril 15 mg Cap RxNorm: 798258 1-2 Capsule(s) PO QHS 05/02/2012 Inactive propranolol 80 mg tablet RxNorm: 187886 1 Tablet(s) PO QHS 05/02/20 12 05/12/2012 Inactive Chantix Starting Month Box 0.5 mg (11)-1 mg (42) Tabs in a Dose Pack RxNorm: 205691 Tablet(s) PO As Directed 04/01/2012 01/27/2013 Inactive simvastatin 40 mg tablet RxNorm: 056236 1 Tablet(s) PO QD 03/28/2012 09/18/2012 Inactive simvastatin 40 mg Tab RxNorm: 521228 1 Tablet(s) PO QD 03/22/201207/2012 Inactive Effient 10 mg Tab RxNorm: 197062 1 Tablet(s) PO QD 03/22/2012 012 Inactive Prilosec 40 mg Capsule, delayed release RxNorm: 439823 1 Capsul e(s) PO QD 03/22/2012 09/18/2012 Inactive Prilosec 40 mg Capsule, delayed release RxNorm: 714610 1 Capsul e(s) PO QD 03/19/2012 03/21/2012 Inactive Cymbalta 60 mg capsule,delayed release RxNorm: 281510 1 Capsule (s) PO QD 03/04/2012 08/30/2012 Inactive hydrocodone-acetaminophen 10 mg-325 mg Tab RxNorm: 7279288 1-2 T ablet(s) PO QID 01/23/2012 No Stop Date Active Cymbalta 60 mg Capsule, delayed release RxNorm: 335529 1 Capsul e(s) PO QD 01/23/2012 03/03/2012 Inactive Cipro 500 mg Tab RxNorm: 355503 1 Tablet(s) PO BID 12/20/2011 012 Inactive Cymbalta 60 mg Capsule, delayed release RxNorm: 279423 1 Capsul e(s) PO QD 12/13/2011 01/22/2012 Inactive nortriptyline 75 mg Cap RxNorm: 683981 1 Capsule(s) PO QHS 11/29/19 12 04/02/2012 Inactive Cymbalta 60 mg Cap RxNorm: 953366 1 Capsule(s) PO QD 10/24/201112/11 Inactive propranolol 80 mg Tab RxNorm: 233224 1 Tablet(s) PO QHS 10/24/2011 Inactive hydrocodone-acetaminophen 10 mg-325 mg Tab RxNorm: 4204053 1-2 T ablet(s) PO QID 09/29/2011 No Stop Date Active hydrocodone-acetaminophen 10 mg-325 mg Tab RxNorm: 0948039 1-2 T ablet(s) PO QID 07/25/2011 No Stop Date Active hydrocodone-acetaminophen 10 mg-325 mg Tab RxNorm: 3757197 1-2 T ablet(s) PO QID 02/14/2011 No Stop Date Active Prilosec 40 mg Cap RxNorm: 842636 1 Capsule(s) PO 01/03/2011 01/13/20 19 Inactive nortriptyline 75 mg Cap RxNorm: 874718 1 Capsule(s) PO QHS 01/04/20 11 07/01/2011 Inactive Neurontin 600 mg Tab RxNorm: 331208 1 Tablet(s) PO QHS 12/08/201011/2011 Inactive hydrocodone-acetaminophen 5 mg-500 mg Tab RxNorm: 896757 2 Tablet(s) PO Q4-6H prn 10/20/2010 01/08/2011 Inactive Diltzac ER 240 mg Cap RxNorm: 184294 1 Capsule(s) PO QD 07/14/2010 Inactive Nortriptyline 75 mg Cap RxNorm: 536558 1 Capsule(s) PO QHS 05/09/20 10 01/12/2019 Inactive Neurontin 600 mg Tab RxNorm: 583967 1 Tablet(s) PO QD 03/17/201012/17 Inactive Nortriptyline 75 mg Cap RxNorm: 531993 1 Capsule(s) PO 01/12/2010 Inactive Nortriptyline 50 mg Cap RxNorm: 320096 1 Capsule(s) PO QHS 01/13/20 10 01/11/2010 Inactive Diltzac ER 240 mg Cap RxNorm: 099701 1 Capsule(s) PO QD 12/06/2009 Inactive aspirin 81 mg Tab RxNorm: 880435 1 Tablet(s) PO QD No Start Date Active Vitamin D3 2,000 unit tablet RxNorm: 940521 1 Tablet(s) PO QD No Star t Date Active Lyrica 75 mg capsule RxNorm: 462012 1 Capsule(s) PO QHS No Start Date Active primidone 50 mg tablet RxNorm: 623029 2 Tablet(s) PO BID No Start Date Active Prilosec 40 mg Capsule, delayed release RxNorm: 056159 1 Capsul e(s) PO QD No Start Date 03/18/2012 Inactive Prilosec 20 mg Cap RxNorm: 684852 1 Capsule(s) PO QHS No Start Date 0 01/02/2011 Inactive primidone 50 mg tablet RxNorm: 416700 1/2 Tablet(s) PO QHS for 1week then go full tab if needed No Start Date 05/01/2017 Inactive ProAir HFA 90 mcg/actuation aerosol inhaler RxNorm: 181525 2 Puff(s) INH Q4H as needed No Start Date 10/29/2017 Inactive clonazepam 0.5 mg tablet RxNorm: 294528 1/2 Tablet(s) PO BID No Sta rt Date 02/12/2017 Inactive Pepcid AC 10 mg Tab RxNorm: 626840 1 Tablet(s) PO QAM No Start Date 0 02/19/2011 Inactive Coreg Oral RxNorm: Oral No Start Date 01/12/2014 Inactive primidone 50 mg tablet RxNorm: 547706 1/2 Tablet(s) PO QD for 7 days then increase to 1 tablet at bedtime No Start Date 01/08/2017 Inactive Medrol (Jose) 4 mg tablets in a dose pack RxNorm: 891859 Tablet(s) PO As Directed No Start Date 01/12/2016 Inactive Plavix 75 mg tablet RxNorm: 919348 1 Tablet(s) PO QD No Start Date Inactive cyclobenzaprine 10 mg tablet RxNorm: 667311 1 Tablet(s) PO TID as needed for spasm No Start Date 07/03/2013 Inactive Bevespi Aerosphere 9 mcg-4.8 mcg HFA aerosol inhaler RxNorm: 4223056 2 Puff(s) INH BID No Start Date 02/18/2019 Inactive tramadol 50 mg tablet RxNorm: 305695 1-2 Tablet(s) PO TID as ne eded for pain No Start Date 01/12/2019 Inactive clonazepam 1 mg tablet RxNorm: 650622 1 Tablet(s) PO QAM No Start D ate 09/18/2018 Inactive hydrocodone-acetaminophen 5 mg-500 mg Tab RxNorm: 183567 2 Tablet(s) PO Q4-6H prn No Start Date 10/19/2010 Inactive lisinopril 20 mg Tab RxNorm: 723743 1/2 Tablet(s) PO QD No Start Da te 03/12/2011 Inactive Protonix 40 mg tablet,delayed release RxNorm: 726355 1 Tablet(s ) PO QD No Start Date 06/07/2014 Inactive Lipitor Oral RxNorm: Oral No Start Date 01/12/2014 Inactive primidone 50 mg tablet RxNorm: [id number] 2 Tablet(s) PO QAM and 1 tablet at HS No Start Date 02/17/2019 Inactive hydrocodone-acetaminophen 10 mg-325 mg Tab RxNorm: 1293861 1-2 T ablet(s) PO QID No Start Date 02/13/2011 Inactive Ultram 50 mg tablet RxNorm: 992330 1-2 Tablet(s) PO QID as need ed for pain No Start Date 09/18/2012 Inactive Effient 10 mg Tab RxNorm: 350777 1 Tablet(s) PO QD No Start Date 01/2012 Inactive Bevespi Aerosphere 9 mcg-4.8 mcg HFA aerosol inhaler RxNorm: 8142223 2 Puff(s) INH BID No Start Date 10/29/2017 Inactive Neurontin Oral RxNorm: Oral No Start Date 01/12/2010 Inactive primidone 50 mg tablet RxNorm: 036578 1 Tablet(s) PO QD No Start Da te 01/12/2019 Inactive Chantix Starting Month Box 0.5 mg (11)-1 mg (42) Tabs in a Dose Pack RxNorm: 590946 Tablet(s) PO No Start Date 03/31/2012 Inactive atenolol 25 mg Tab RxNorm: 597494 1 Tablet(s) PO QD No Start Date 02/2012 Inactive Neurontin 600 mg Tab RxNorm: 075030 1 Tablet(s) PO QD No Start Date 0 03/16/2010 Inactive Nucynta 50 mg tablet RxNorm: 507226 1-2 Tablet(s) PO Q6H as nee ded for pain No Start Date 12/31/2012 Inactive simvastatin 40 mg Tab RxNorm: 191390 1 Tablet(s) PO QD No Start Date 03/21/2012 Inactive Medication Administered No Medication Administered data Immunizations Vaccine Codes Date Status Influenza CVX: 135 07/04/2017 Complete Results Observation Observation Code Item Item Code Result Date S [facility] Location COMPLETE BLOOD COUNT [id number] WBC 4.9 10e9/L 09/04/20 18 Unknown COMPLETE BLOOD COUNT [id number] RBC 4.42 10e12/L 2017 Unknown COMPLETE BLOOD COUNT 2960603 HEMOGLOBIN 13.4 g/dL 09/04/20 18 Unknown COMPLETE BLOOD COUNT 8184543 HEMATOCRIT 40.5 % 09/04/20 18 Unknown COMPLETE BLOOD COUNT 2248051 MCV 91.6 fL 8 Unknown COMPLETE BLOOD COUNT 6376961 MCH 30.3 pg 8 Unknown COMPLETE BLOOD COUNT 9482063 MCHC 33.1 g/dL 8 Unknown COMPLETE BLOOD COUNT 1689470 PLATELET COUNT 224 10e9/L Unknown COMPLETE BLOOD COUNT 4566461 Mean Plt Volume 9.9 fL Unknown COMPLETE BLOOD COUNT 5344914 Neut Auto 60.8 % 8 Unknown COMPLETE BLOOD COUNT 2414459 Lymph Auto 26.8 % 09/04/20 18 Unknown COMPLETE BLOOD COUNT 1416446 [place] Auto 10.4 % 8 Unknown COMPLETE BLOOD COUNT 8882148 RDW 12.8 % 8 Unknown COMPLETE BLOOD COUNT 6203972 Eos Auto 1.6 % 8 Unknown COMPLETE BLOOD COUNT 6322208 Baso Auto 0.4 % 8 Unknown COMPLETE BLOOD COUNT 1080431 Neutrophil Abs 2.98 10e9/L Unknown COMPLETE BLOOD COUNT 5943590 Lymphocyte Abs 1.31 10e9/L Unknown COMPLETE BLOOD COUNT [id number] Monocyte Abs 0.51 10e9/L 08/17 Unknown COMPLETE BLOOD COUNT 6247436 Eosinophil Abs 0.08 10e9/L Unknown COMPLETE BLOOD COUNT 4645565 RDW-SD 41.6 fL 8 Unknown COMPLETE BLOOD COUNT [id number] Basophil Abs 0.02 10e9/L 08/17 Unknown COMPREHENSIVE METABOLIC 76799 AST 16 U/L 2017 Unknown COMPREHENSIVE METABOLIC 46548 ALT 8 U/L 2017 Unknown COMPREHENSIVE METABOLIC 57186 BUN 12 mg/dL 2017 Unknown COMPREHENSIVE METABOLIC 11626 ALBUMIN 4.4 g/dL 2017 Unknown COMPREHENSIVE METABOLIC 70058 CHLORIDE 107 mmol/L 09/04 Unknown COMPREHENSIVE METABOLIC 01695 Bili Total 1.0 mg/dL 09/04 Unknown COMPREHENSIVE METABOLIC 53026 ALK PHOS 58 U/L 2017 Unknown COMPREHENSIVE METABOLIC 90051 SODIUM 142 mmol/L 09/04 Unknown COMPREHENSIVE METABOLIC 57900 CREATININE 0.97 mg/dL 08/17 Unknown COMPREHENSIVE METABOLIC 52979 CALCIUM 9.2 mg/dL 2017 Unknown COMPREHENSIVE METABOLIC 22819 POTASSIUM 4.6 mmol/L 09/04 Unknown COMPREHENSIVE METABOLIC 27161 Total Protein 6.5 g/dL Unknown COMPREHENSIVE METABOLIC 65407 Glucose 96 mg/dL 2017 Unknown COMPREHENSIVE METABOLIC 60437 Bicarbonate 29 mmol/L 08/17 Unknown COMPREHENSIVE METABOLIC 72290 AGAP 6 mmol/L 2017 Unknown LIPID GROUP 53904 Cholesterol 182 mg/dL 09/04/2018 Unkno wn LIPID GROUP 33456 Triglyceride 84 mg/dL 09/04/2018 Unkn own LIPID GROUP 25629 HDL CHOLESTEROL 76 mg/dL 09/04/2018 U nknown LIPID GROUP 37547 Chol/HDL Ratio 2.39 ratio 09/04/2018 U nknown LIPID GROUP 03416 NON-HDL Chol 106 mg/dL 09/04/2018 Unkn own LIPID GROUP 40069 LDL Cholesterol 89 mg/dL 09/04/2018 U nknown GFR CALC 4687465 GFR Non Afr Amr >60 mL/min 09/04/2018 Un known GFR CALC 1768939 GFR Afr Amr >60 mL/min 09/04/2018 Unknow n THYROID STIMULATING HORMONE 41121 TSH 0.713 uIU/mL 09/04/2018 Unknown PSA EQUIMOLAR BARBIE 57499 PSA Total 0.66 ng/mL 8 Unknown A FOOD C P 6862322 [place] Cl Class 0 11/17/2017 Unknown A FOOD C P 0742608 [place] Ct <0.35 kU/L 11/17/2017 Unknow n A FOOD C P 3016601 [place] Cl Class 0 11/17/2017 Unkn own A FOOD C P 4209465 [place] Ct <0.35 kU/L 11/17/2017 Unk nown A FOOD C P 5580238 Egg White Cl Class 0 11/17/2017 Unkno wn A FOOD C P 2646214 Egg White Ct <0.35 kU/L 11/17/2017 Unkn own A FOOD C P 9721642 Egg Yolk Cl Class 0 11/17/2017 Unknow n A FOOD C P 1626467 Egg Yolk Ct <0.35 kU/L 11/17/2017 Unkno wn A FOOD C P 4962161 Cow Milk Cl Class 0 11/17/2017 Unknow n A FOOD C P 2697202 Cow Milk Ct <0.35 kU/L 11/17/2017 Unkno wn A FOOD C P 6020955 Peanut Cl Class 0 11/17/2017 Unknown A FOOD C P 9190876 Peanut Ct <0.35 kU/L 11/17/2017 Unknown A FOOD C P 6162218 Shrimp Cl Class 0 11/17/2017 Unknown A FOOD C P 3513789 Shrimp Ct <0.35 kU/L 11/17/2017 Unknown A FOOD C P 0511365 Soy[place] Cl Class 0 11/17/2017 Unknown A FOOD C P 3537914 Soybean Ct <0.35 kU/L 11/17/2017 Unknow n A FOOD C P 3023046 Wheat Cl Class 0 11/17/2017 Unknown A FOOD C P 9411392 Wheat Ct <0.35 kU/L 11/17/2017 Unknown A FOOD C P 9763623 Potato Cl Class 0 11/17/2017 Unknown A FOOD C P 5186818 Potato Ct <0.35 kU/L 11/17/2017 Unknown A FOOD C P 2943304 Beef Cl Class 2 11/17/2017 Unknown A FOOD C P 3665158 Beef Ct 0.88 kU/L 11/17/2017 Unknown A FOOD C P 9381065 [place] Cl Class 0 11/17/2017 Unknown A FOOD C P 1175905 [place] Ct <0.35 kU/L 11/17/2017 Unknown A FOOD C P 0837333 Pork Cl Class 0 11/17/2017 Unknown A FOOD C P 1301530 Pork Ct <0.35 kU/L 11/17/2017 Unknown A FOOD C P 5480389 [place] Cl Class 0 11/17/2017 Unknown A FOOD C P 6382586 [place] Ct <0.35 kU/L 11/17/2017 Unknown A FOOD C P 1188974 [place] Cl Class 0 11/17/2017 Unkn own A FOOD C P 4517352 [place] Ct <0.35 kU/L 11/17/2017 Unk nown A FOOD C P 4036394 Tomato Cl Class 0 11/17/2017 Unknown A FOOD C P 4542141 Tomato Ct <0.35 kU/L 11/17/2017 Unknown A FOOD C P 6592460 Tuna Cl Class 0 11/17/2017 Unknown A FOOD C P 4029935 Tuna Ct <0.35 kU/L 11/17/2017 Unknown A FOOD C P 6048307 [place] CL Class 0 11/17/2017 Unknown A FOOD C P 6963135 [place] <0.35 kU/L 11/17/2017 Unknown A FOOD C P 5855850 Case[place] Cl Class 0 11/17/2017 Unknown A FOOD C P 0941224 Casein Ct <0.35 kU/L 11/17/2017 Unknown A FOOD C P 3732008 Oat Cl Class 0 11/17/2017 Unknown A FOOD C P 9422735 Oat Ct <0.35 kU/L 11/17/2017 Unknown A FOOD C P 8305074 K[place] Cl Class 0 11/17/2017 Unknown A FOOD C P 7726169 Kite Ct <0.35 kU/L 11/17/2017 Unknown A FOOD C P 7380772 Chicken Meat CL Class 0 11/17/2017 Un known A FOOD C P 8369815 Chicken Meat Ct <0.35 kU/L 11/17/2017 U nknown A FOOD C P 0611262 [place] Cl Class 0 11/17/2017 Unknown A FOOD C P 3270171 [place] Ct <0.35 kU/L 11/17/2017 Unknown A FOOD C P 6180374 Pec[place] Meat Cl Class 0 11/17/2017 Unkn own A FOOD C P 9920068 Pecan Meat Ct <0.35 kU/L 11/17/2017 Unk nown A NUTS PNL 6367073 Peanut Cl Class 0 11/17/2017 Unknown A NUTS PNL 4446596 Peanut Ct <0.35 kU/L 11/17/2017 Unknown A NUTS PNL 1322848 [place] Meat Cl Class 0 11/17/2017 Unk nown A NUTS PNL 1335578 [place] Ct <0.35 kU/L 11/17/2017 Un known A NUTS PNL 7717004 [place] Meat Cl Class 0 11/17/2017 Unkn own A NUTS PNL 0664610 [place] Ct <0.35 kU/L 11/17/2017 Unk nown A NUTS PNL 6672366 [place] Cl Class 0 11/17/2017 Unknown A NUTS PNL 0722747 [place] Ct <0.35 kU/L 11/17/2017 Unknown A NUTS PNL 6402645 [place] Cl Class 0 11/17/2017 Unknow n A NUTS PNL 8798829 [place] Ct <0.35 kU/L 11/17/2017 Unkno wn A NUTS PNL 4159270 [place] Cl Class 0 11/17/2017 Unkno wn A NUTS PNL 4212751 [place] Ct <0.35 kU/L 11/17/2017 Unkn own A NUTS PNL 9365157 [place] Cl Class 0 11/17/2017 Unknown A NUTS PNL 0310549 [place] Ct <0.35 kU/L 11/17/2017 Unknown A NUTS PNL 8896958 [place] Cl Class 0 11/17/2017 Unkno wn A NUTS PNL 9740131 [place] Ct <0.35 kU/L 11/17/2017 Unkn own A NUTS PNL 0256140 Allergen Interp See Note 11/17/2017 Un known A FRT/VG P 0042111 [place] Cl Class 0 11/17/2017 Unkn own A FRT/VG P 8969160 [place] Ct <0.35 kU/L 11/17/2017 Unk nown A FRT/VG P 0003594 Potato Cl Class 0 11/17/2017 Unknown A FRT/VG P 6373012 Potato Ct <0.35 kU/L 11/17/2017 Unknown A FRT/VG P 3651472 [place] Cl Class 0 11/17/2017 Unkn own A FRT/VG P 6468847 [place] Ct <0.35 kU/L 11/17/2017 Unk nown A FRT/VG P 5093307 Tom[place] Cl Class 0 11/17/2017 Unknown A FRT/VG P 0943033 Tomato Ct <0.35 kU/L 11/17/2017 Unknown A FRT/VG P 2879236 [place] Cl Class 0 11/17/2017 Unknown A FRT/VG P 7867329 [place]ite Ct <0.35 kU/L 11/17/2017 Unknown A FRT/VG P 5446909 Ban[place] Cl Class 1 11/17/2017 Unknown A FRT/VG P 5902804 Banana Ct 0.48 kU/L 11/17/2017 Unknown A FRT/VG P 9143697 [place] Cl Class 0 11/17/2017 Unk nown A FRT/VG P 8442570 [place] Ct <0.35 kU/L 11/17/2017 Un known A FRT/VG P 5204202 [place] Fruit Cl Class 0 11/17/2017 Unk nown A FRT/VG P 3059672 [place] Ct <0.35 kU/L 11/17/2017 Un known A FRT/VG P 0047709 [place] Cl Class 0 11/17/2017 Unknown A FRT/VG P 5225691 Carrot Ct <0.35 kU/L 11/17/2017 Unknown A FRT/VG P 7932249 Pea Cl Class 0 11/17/2017 Unknown A FRT/VG P 8600782 Pea Ct <0.35 kU/L 11/17/2017 Unknown A FRT/VG P 0689979 Pear Fruit Cl Class 0 11/17/2017 Unkn own A FRT/VG P 5364213 [place] Ct <0.35 kU/L 11/17/2017 Unk nown A FRT/VG P 3242910 Swt Pot[place] Cl Class 0 11/17/2017 Unkn own A FRT/VG P 9186684 Swt Potato Ct <0.35 kU/L 11/17/2017 Unk nown THYROID STIMULATING HORMONE 93218 TSH 1.371 uIU/mL 09/03/2017 Unknown FREE T4 50304 T4 Free 1.26 ng/dL 09/03/2017 Unknown ASSAY TRIIODOTHYRONINE (T3) 33929 T3 Total 0.9 ng/mL Unknown COMPLETE BLOOD COUNT 0308953 WBC 5.9 10e9/L 07/31/20 17 Unknown COMPLETE BLOOD COUNT 4611004 RBC 4.64 10e12/L 2016 Unknown COMPLETE BLOOD COUNT 8808373 HEMOGLOBIN 14.2 g/dL 07/31/20 17 Unknown COMPLETE BLOOD COUNT 4816229 HEMATOCRIT 42.1 % 07/31/20 17 Unknown COMPLETE BLOOD COUNT 9829569 MCV 90.7 fL 7 Unknown COMPLETE BLOOD COUNT 8153140 MCH 30.6 pg 7 Unknown COMPLETE BLOOD COUNT 2494627 MCHC 33.7 g/dL 7 Unknown COMPLETE BLOOD COUNT 6030614 PLATELET COUNT 195 10e9/L Unknown COMPLETE BLOOD COUNT 3507857 Mean Plt Volume 10.0 fL Unknown COMPLETE BLOOD COUNT 3912310 Neut Auto 47.5 % 7 Unknown COMPLETE BLOOD COUNT 6986308 Lymph Auto 37.4 % 07/31/20 17 Unknown COMPLETE BLOOD COUNT 1688716 [place] Auto 11.7 % 7 Unknown COMPLETE BLOOD COUNT 8588002 Eos Auto 3.2 % 7 Unknown COMPLETE BLOOD COUNT 8356790 RDW 12.8 % 7 Unknown COMPLETE BLOOD COUNT 5784315 Baso Auto 0.2 % 7 Unknown COMPLETE BLOOD COUNT 9166646 Neutrophil Abs 2.80 10e9/L Unknown COMPLETE BLOOD COUNT 2727323 Lymphocyte Abs 2.21 10e9/L Unknown COMPLETE BLOOD COUNT 3726285 Monocyte Abs 0.69 10e9/L 07/18 Unknown COMPLETE BLOOD COUNT 7073842 Eosinophil Abs 0.19 10e9/L Unknown COMPLETE BLOOD COUNT 2500121 RDW-SD 41.6 fL 7 Unknown COMPLETE BLOOD COUNT 9623720 Basophil Abs 0.01 10e9/L 07/18 Unknown LIPID GROUP 47351 Cholesterol 186 mg/dL 07/31/2017 Unkno wn LIPID GROUP 84922 Triglyceride 129 mg/dL 07/31/2017 Unkn own LIPID GROUP 33859 HDL CHOLESTEROL 79 mg/dL 07/31/2017 U nknown LIPID GROUP 43788 Chol/HDL Ratio 2.35 ratio 07/31/2017 U nknown LIPID GROUP 22315 NON-HDL Chol 107 mg/dL 07/31/2017 Unkn own LIPID GROUP 94369 LDL Cholesterol 81 mg/dL 07/31/2017 U nknown GFR CALC 9499227 GFR Non Afr Amr >60 mL/min 07/31/2017 Un known GFR CALC 7172635 GFR Afr Amr >60 mL/min 07/31/2017 Unknow n COMPREHENSIVE METABOLIC 92197 AST 19 U/L 2016 Unknown COMPREHENSIVE METABOLIC 35500 ALT 12 U/L 2016 Unknown COMPREHENSIVE METABOLIC 52997 BUN 15 mg/dL 2016 Unknown COMPREHENSIVE METABOLIC 60093 ALBUMIN 4.4 g/dL 2016 Unknown COMPREHENSIVE METABOLIC 48650 CHLORIDE 102 mmol/L 07/31 Unknown COMPREHENSIVE METABOLIC 12840 Bili Total 0.9 mg/dL 07/31 Unknown COMPREHENSIVE METABOLIC 80625 ALK PHOS 53 U/L 2016 Unknown COMPREHENSIVE METABOLIC 21909 SODIUM 138 mmol/L 07/31 Unknown COMPREHENSIVE METABOLIC 56730 CREATININE 1.06 mg/dL 07/18 Unknown COMPREHENSIVE METABOLIC 88818 CALCIUM 9.3 mg/dL 2016 Unknown COMPREHENSIVE METABOLIC 25712 POTASSIUM 4.0 mmol/L 07/31 Unknown COMPREHENSIVE METABOLIC 02313 Total Protein 6.8 g/dL Unknown COMPREHENSIVE METABOLIC 86734 Glucose 86 mg/dL 2016 Unknown COMPREHENSIVE METABOLIC 63605 Bicarbonate 28 mmol/L 07/18 Unknown COMPREHENSIVE METABOLIC 66841 AGAP 8 mmol/L 2016 Unknown COMPREHENSIVE METABOLIC 34154 AST 18 U/L 2015 Unknown COMPREHENSIVE METABOLIC 53984 ALT 9 U/L 2015 Unknown COMPREHENSIVE METABOLIC 46652 BUN 11 mg/dL 2015 Unknown COMPREHENSIVE METABOLIC 14328 ALBUMIN 4.2 g/dL 2015 Unknown COMPREHENSIVE METABOLIC 45822 CHLORIDE 104 mmol/L 05/19 Unknown COMPREHENSIVE METABOLIC 37937 Bili Total 1.2 mg/dL 05/19 Unknown COMPREHENSIVE METABOLIC 15358 ALK PHOS 54 U/L 2015 Unknown COMPREHENSIVE METABOLIC 39630 SODIUM 140 mmol/L 05/19 Unknown COMPREHENSIVE METABOLIC 76356 CREATININE 1.03 mg/dL 10/2015 Unknown COMPREHENSIVE METABOLIC 93338 CALCIUM 9.3 mg/dL 2015 Unknown COMPREHENSIVE METABOLIC 95775 POTASSIUM 4.9 mmol/L 05/19 Unknown COMPREHENSIVE METABOLIC 75598 Total Protein 6.7 g/dL Unknown COMPREHENSIVE METABOLIC 75493 Glucose 92 mg/dL 2015 Unknown COMPREHENSIVE METABOLIC 43074 Bicarbonate 28 mmol/L 10/2015 Unknown COMPREHENSIVE METABOLIC 10028 AGAP 8 mmol/L 2015 Unknown THYROID STIMULATING HORMONE 50583 TSH 1.545 uIU/mL 05/19/2016 Unknown GFR CALC 1074405 GFR Non Afr Amr >60 mL/min 05/19/2016 Un known GFR CALC 4959089 GFR Afr Amr >60 mL/min 05/19/2016 Unknow n VITAMIN B 12 18248 VITAMIN B12 298 pg/mL 05/19/2016 Unkn own COMPLETE BLOOD COUNT 0448301 WBC 5.2 10e9/L 05/19/20 16 Unknown COMPLETE BLOOD COUNT 2097565 RBC 4.34 10e12/L 2015 Unknown COMPLETE BLOOD COUNT 4536212 HEMOGLOBIN 12.9 g/dL 05/19/20 16 Unknown COMPLETE BLOOD COUNT 2158578 HEMATOCRIT 38.9 % 05/19/20 16 Unknown COMPLETE BLOOD COUNT 3688109 MCV 89.6 fL 6 Unknown COMPLETE BLOOD COUNT 5983767 MCH 29.7 pg 6 Unknown COMPLETE BLOOD COUNT 9437778 MCHC 33.2 g/dL 6 Unknown COMPLETE BLOOD COUNT 5736252 PLATELET COUNT 200 10e9/L 10/2015 Unknown COMPLETE BLOOD COUNT 0905091 Mean Plt Volume 10.1 fL 10/2015 Unknown COMPLETE BLOOD COUNT 7134545 Neut Auto 45.4 % 6 Unknown COMPLETE BLOOD COUNT 0239064 Lymph Auto 35.6 % 05/19/20 16 Unknown COMPLETE BLOOD COUNT 0877593 [place] Auto 11.9 % 6 Unknown COMPLETE BLOOD COUNT 3833612 RDW 12.7 % 6 Unknown COMPLETE BLOOD COUNT 2726185 Eos Auto 6.7 % 6 Unknown COMPLETE BLOOD COUNT 3809759 Baso Auto 0.4 % 6 Unknown COMPLETE BLOOD COUNT 6261025 Neutrophil Abs 2.36 10e9/L Unknown COMPLETE BLOOD COUNT 0861655 Lymphocyte Abs 1.85 10e9/L Unknown COMPLETE BLOOD COUNT 2276556 Monocyte Abs 0.62 10e9/L 10/2015 Unknown COMPLETE BLOOD COUNT 5599921 Eosinophil Abs 0.35 10e9/L Unknown COMPLETE BLOOD COUNT 2457558 RDW-SD 40.6 fL 6 Unknown COMPLETE BLOOD COUNT 4695963 Basophil Abs 0.02 10e9/L 10/2015 Unknown LIPID GROUP 79447 Cholesterol 197 mg/dL 05/19/2016 Unkno wn LIPID GROUP 01340 Triglyceride 92 mg/dL 05/19/2016 Unkn own LIPID GROUP 50587 HDL CHOLESTEROL 58 mg/dL 05/19/2016 U nknown LIPID GROUP 39983 Chol/HDL Ratio 3.40 ratio 05/19/2016 U nknown LIPID GROUP 42094 NON-HDL Chol 139 mg/dL 05/19/2016 Unkn own LIPID GROUP 44366 LDL Cholesterol 121 mg/dL 05/19/2016 U nknown FREE T4 81007 T4 Free 1.19 ng/dL 05/19/2016 Unknown COMPREHENSIVE METABOLIC 98529 AST 19 U/L 2014 Unknown COMPREHENSIVE METABOLIC 74531 ALT 10 IU/L 2014 Unknown COMPREHENSIVE METABOLIC 11253 BUN 20 MG/DL 2014 Unknown COMPREHENSIVE METABOLIC 21858 ALBUMIN 4.4 GM/DL 2014 Unknown COMPREHENSIVE METABOLIC 37751 CHLORIDE 104 MMOL/L 04/05 Unknown COMPREHENSIVE METABOLIC 03126 BILI TOT 2.2 MG/DL 2014 Unknown COMPREHENSIVE METABOLIC 22546 ALK PHOS 55 U/L 2014 Unknown COMPREHENSIVE METABOLIC 03502 SODIUM 138 MMOL/L 04/05 Unknown COMPREHENSIVE METABOLIC 62908 CREATININE 1.04 MG/DL 03/18 Unknown COMPREHENSIVE METABOLIC 33271 CALCIUM 9.3 MG/DL 2014 Unknown COMPREHENSIVE METABOLIC 83085 POTASSIUM 4.5 MMOL/L 04/05 Unknown COMPREHENSIVE METABOLIC 34980 PROT TOT 6.7 GM/DL 2014 Unknown COMPREHENSIVE METABOLIC 81938 Glucose 77 MG/DL 2014 Unknown COMPREHENSIVE METABOLIC 99284 BICARB 25 MMOL/L 2014 Unknown COMPREHENSIVE METABOLIC 94287 ANION GAP 9 MEQ/L 2014 Unknown GFR CALC 3771911 GFR AA >60 ML/MIN 04/05/2015 Unknown GFR CALC 2165056 GFR NON-AA >60 ML/MIN 04/05/2015 Unknown LIPID GROUP 28853 HDL TEST 60 MG/DL 04/05/2015 Unknown LIPID GROUP 26230 TRIG 70 MG/DL 04/05/2015 Unknown LIPID GROUP 40078 TEST LDL 137 MG/DL 04/05/2015 Unknown LIPID GROUP 14840 CHOL 211 MG/DL 04/05/2015 Unknown LIPID GROUP 25446 RCHOL/HDL 3.52 RATIO 04/05/2015 Unknow n LIPID GROUP 32314 NON-HDL CH 151 MG/DL 04/05/2015 Unknow n COMPLETE BLOOD COUNT 6113326 WBC 5.3 10e9/L 04/05/20 15 Unknown COMPLETE BLOOD COUNT 8224662 RBC 4.42 10e12/L 2014 Unknown COMPLETE BLOOD COUNT 7026372 HGB 13.4 g/dL 5 Unknown COMPLETE BLOOD COUNT 2636788 HCT DET 39.6 % 5 Unknown COMPLETE BLOOD COUNT 8647672 MCV 89.6 fL 5 Unknown COMPLETE BLOOD COUNT 4052493 MCH 30.3 pg 5 Unknown COMPLETE BLOOD COUNT 6801939 MCHC 33.8 g/dL 5 Unknown COMPLETE BLOOD COUNT 0743655 PLT 201 10e9/L 04/05/20 15 Unknown COMPLETE BLOOD COUNT 5942007 MPV 10.3 fL 5 Unknown COMPLETE BLOOD COUNT 7666122 LUPE % 56.4 % 5 Unknown COMPLETE BLOOD COUNT 2622096 LY % 24.8 % 5 Unknown COMPLETE BLOOD COUNT 3195799 MON % 12.8 % 5 Unknown COMPLETE BLOOD COUNT 8963530 EOS % 5.4 % 5 Unknown COMPLETE BLOOD COUNT 0515159 BASO % 0.6 % 5 Unknown COMPLETE BLOOD COUNT 0473436 RDW 13.2 % 5 Unknown COMPLETE BLOOD COUNT 0793583 ABS LUPE 2.99 10e9/L 015 Unknown COMPLETE BLOOD COUNT 3851927 ABS LYMPH 1.31 10e9/L 015 Unknown COMPLETE BLOOD COUNT 7225720 ABS MONO 0.68 10e9/L 015 Unknown COMPLETE BLOOD COUNT 0854602 ABS EOS 0.29 10e9/L 015 Unknown COMPLETE BLOOD COUNT 2338245 ABS BASO 0.03 10e9/L 015 Unknown COMPLETE BLOOD COUNT 5480960 RDW-SD 42.3 fL 5 Unknown LIPID GROUP 57418 HDL TEST 51 MG/DL 07/19/2012 Unknown LIPID GROUP 83092 TRIG 129 MG/DL 07/19/2012 Unknown LIPID GROUP 82760 TEST LDL 98 MG/DL 07/19/2012 Unknown LIPID GROUP 61379 CHOL 175 MG/DL 07/19/2012 Unknown LIPID GROUP 31130 RCHOL/HDL 3.43 RATIO 07/19/2012 Unknow n COMPREHENSIVE METABOLIC 94665 AST 18 U/L 2011 Unknown COMPREHENSIVE METABOLIC 34294 ALT 12 IU/L 2011 Unknown COMPREHENSIVE METABOLIC 34306 BUN 10 MG/DL 2011 Unknown COMPREHENSIVE METABOLIC 89486 ALBUMIN 4.1 GM/DL 2011 Unknown COMPREHENSIVE METABOLIC 67643 CHLORIDE 103 MMOL/L 07/19 Unknown COMPREHENSIVE METABOLIC 26335 BILI TOT 0.9 MG/DL 2011 Unknown COMPREHENSIVE METABOLIC 94457 ALK PHOS 62 U/L 2011 Unknown COMPREHENSIVE METABOLIC 84231 SODIUM 138 MMOL/L 07/19 Unknown COMPREHENSIVE METABOLIC 77248 CREATININE 1.08 MG/DL 10/2011 Unknown COMPREHENSIVE METABOLIC 39712 CALCIUM 9.1 MG/DL 2011 Unknown COMPREHENSIVE METABOLIC 30270 POTASSIUM 4.2 MMOL/L 07/19 Unknown COMPREHENSIVE METABOLIC 89594 PROT TOT 6.7 GM/DL 2011 Unknown COMPREHENSIVE METABOLIC 17766 Glucose 101 MG/DL 2011 Unknown COMPREHENSIVE METABOLIC 59006 BICARB 27 MMOL/L 2011 Unknown COMPREHENSIVE METABOLIC 05703 ANION GAP 8 MEQ/L 2011 Unknown GFR CALC 9281299 GFR AA >60 ML/MIN 07/19/2012 Unknown GFR CALC 8780661 GFR NON-AA >60 ML/MIN 07/19/2012 Unknown Procedures Procedure Codes Date THER/PROPH/DIAG INJ SC/IM CPT-4: 85762 01/13/2019 TRIAMCINOLONE ACET INJ NOS CPT-4: J3301 01/13/2019 DEXAMETHASONE SODIUM PHOS CPT-4: J1100 01/13/2019 ROUTINE VENIPUNCTURE CPT-4: 63544 09/04/2018 COMPREHEN METABOLIC PANEL CPT-4: 01348 09/04/2018 COMPLETE CBC W/AUTO DIFF WBC CPT-4: 12917 09/04/2018 LIPID PANEL CPT-4: 18598 09/04/2018 ASSAY OF PSA TOTAL CPT-4: 81241 09/04/2018 ASSAY THYROID STIM HORMONE CPT-4: 95745 09/04/2018 URINALYSIS NONAUTO W/O SCOPE CPT-4: 86508 05/15/2018 ROUTINE VENIPUNCTURE CPT-4: 07886 11/16/2017 A FRT/VG P CPT-4: 9534424 11/16/2017 A FOOD C P CPT-4: 5307677 11/16/2017 A NUTS PNL CPT-4: 9990171 11/16/2017 THER/PROPH/DIAG INJ SC/IM CPT-4: 42354 11/06/2017 TRIAMCINOLONE ACET INJ NOS CPT-4: J3301 11/06/2017 DEXAMETHASONE SODIUM PHOS CPT-4: J1100 11/06/2017 ROUTINE VENIPUNCTURE CPT-4: 97461 09/03/2017 ASSAY OF FREE THYROXINE CPT-4: 58716 09/03/2017 ASSAY THYROID STIM HORMONE CPT-4: 03863 09/03/2017 ASSAY TRIIODOTHYRONINE (T3) CPT-4: 14812 09/03/2017 ROUTINE VENIPUNCTURE CPT-4: 99945 07/31/2017 COMPREHEN METABOLIC PANEL CPT-4: 93116 07/31/2017 COMPLETE CBC W/AUTO DIFF WBC CPT-4: 62122 07/31/2017 LIPID PANEL CPT-4: 48340 07/31/2017 FLU VACC PRSV FREE INC ANTIG 65 AND OLDER CPT-4: 30802 07/04/2017 ADMIN INFLUENZA VIRUS VAC CPT-4: G0008 07/04/2017 ROUTINE VENIPUNCTURE CPT-4: 36916 02/26/2017 ASSAY THYROID STIM HORMONE CPT-4: 79505 02/26/2017 COMPREHEN METABOLIC PANEL CPT-4: 72258 02/26/2017 COMPLETE CBC W/AUTO DIFF WBC CPT-4: 86174 02/26/2017 LIPID PANEL CPT-4: 60452 02/26/2017 ASSAY OF PSA TOTAL CPT-4: 56603 02/26/2017 FLUZONE, 5ML (Medicare) CPT-4: Q2038 06/28/2016 ADMIN INFLUENZA VIRUS VAC CPT-4: G0008 06/28/2016 ROUTINE VENIPUNCTURE CPT-4: 70703 05/19/2016 ASSAY OF FREE THYROXINE CPT-4: 79899 05/19/2016 ASSAY THYROID STIM HORMONE CPT-4: 72776 05/19/2016 COMPREHEN METABOLIC PANEL CPT-4: 49866 05/19/2016 COMPLETE CBC W/AUTO DIFF WBC CPT-4: 36356 05/19/2016 LIPID PANEL CPT-4: 47471 05/19/2016 VITAMIN B-12 CPT-4: 61944 05/19/2016 PPPS, initial visit CPT-4: G0438 05/10/2016 ROUTINE VENIPUNCTURE CPT-4: 21179 04/05/2015 ASSAY THYROID STIM HORMONE CPT-4: 58944 04/05/2015 COMPREHEN METABOLIC PANEL CPT-4: 92362 04/05/2015 COMPLETE CBC W/AUTO DIFF WBC CPT-4: 97963 04/05/2015 LIPID PANEL CPT-4: 00908 04/05/2015 ASSAY OF PSA TOTAL CPT-4: 49527 04/05/2015 ROUTINE VENIPUNCTURE CPT-4: 98052 07/19/2012 COMPREHEN METABOLIC PANEL CPT-4: 06966 07/19/2012 LIPID PANEL CPT-4: 80664 07/19/2012 ELECTROCARDIOGRAM COMPLETE CPT-4: 46522 03/22/2012 Vital Signs Date Vital 05/26/2019 Blood [...] 1: 102/60 Code: 8480-6 BMI: 19.1 Code: 41272-6 Heart Rate 1: 82 bpm Height: 5'11" Respiratory Rate: 22 bpm SpO2: 97% Tempera ture: 36.4 (C) / 97.6 (F) Weight: 137 lbs 04/25/2018 Blood Pressure 1: 118/64 Code: 8480-6 BMI: 19.2 Code: 38482-3 Heart Rate 1: 98 bpm Height: 5'11" Respiratory Rate: 20 bpm SpO2: 99% Tempera ture: 36.4 (C) / 97.6 (F) Weight: 138 lbs 11/06/2017 Blood Pressure 1: 108/68 Code: 8480-6 BMI: 18.5 Code: 92379-4 Heart Rate 1: 68 bpm Height: 5'11" Respiratory Rate: 20 bpm SpO2: 96% Tempera ture: 36.8 (C) / 98.2 (F) Weight: 133 lbs 09/03/2017 Blood Pressure 1: 122/64 Code: 8480-6 BMI: 17.6 Code: 07536-1 Heart Rate 1: 90 bpm Height: 5'11" Respiratory Rate: 20 bpm SpO2: 98% Tempera ture: 36.4 (C) / 97.6 (F) Weight: 126 lbs 08/21/2017 Blood Pressure 1: 114/80 Code: 8480-6 BMI: 17.9 Code: 98815-5 Heart Rate 1: 80 bpm Height: 5'11" Respiratory Rate: 20 bpm SpO2: 95% Tempera ture: 36.6 (C) / 97.9 (F) Weight: 128 lbs 02/13/2017 Blood Pressure 1: 122/60 Code: 8480-6 BMI: 18.5 Code: 53161-5 Heart Rate 1: 76 bpm Height: 5'11" Respiratory Rate: 20 bpm SpO2: 96% Tempera ture: 36.9 (C) / 98.4 (F) Weight: 133 lbs 11/23/2016 Blood Pressure 1: 126/70 Code: 8480-6 BMI: 18.5 Code: 16684-3 Heart Rate 1: 100 bpm Height: 5'11" Respiratory Rate: 20 bpm SpO2: 96% Tempera ture: 37.1 (C) / 98.8 (F) Weight: 133 lbs 05/23/2016 Blood Pressure 1: 128/82 Code: 8480-6 BMI: 18.5 Code: 82896-1 Heart Rate 1: 88 bpm Height: 5'11" Respiratory Rate: 20 bpm Temperature: 36 .7 (C) / 98.0 (F) Weight: 133 lbs 05/10/2016 Blood Pressure 1: 146/70 Code: 8480-6 BMI: 18.5 Code: 82369-2 Heart Rate 1: 84 bpm Height: 5'11" Respiratory Rate: 20 bpm Temperature: 36 .7 (C) / 98.1 (F) Weight: 133 lbs 04/01/2015 Blood Pressure 1: 102/60 Code: 8480-6 BMI: 18.5 Code: 85406-5 Heart Rate 1: 64 bpm Height: 5'11" Respiratory Rate: 20 bpm Temperature: 36 .8 (C) / 98.2 (F) Weight: 133 lbs 01/13/2014 Blood Pressure 1: 124/78 Code: 8480-6 BMI: 19.8 Code: 57583-8 Heart Rate 1: 76 bpm Height: 5'11" Respiratory Rate: 20 bpm Temperature: 36 .8 (C) / 98.2 (F) Weight: 142 lbs 04/03/2012 Blood Pressure 1: 106/76 Code: 8480-6 BMI: 20.9 Code: 41253-8 Heart Rate 1: 84 bpm Height: 5'11" Respiratory Rate: 20 bpm Temperature: 36 .7 (C) / 98.0 (F) Weight: 150 lbs 12/20/2011 Blood Pressure 1: 116/60 Code: 8480-6 BMI: 20.1 Code: 59966-0 Heart Rate 1: 80 bpm Height: 5'11" Respiratory Rate: 20 bpm Temperature: 36 .4 (C) / [age] (F) Weight: 144 lbs 10/24/2011 Blood Pressure 1: 132/74 Code: 8480-6 BMI: 19.7 Code: 88484-5 Heart Rate 1: 96 bpm Height: 5'11" [...] follow up 01/13/2014 [facility] from Justin Palacio'justin in November 2012 lab draw 07/19/2012 follow up 04/03/2012 S/P stent placement in LAD, changed effient to plavix hip pain 12/20/2011 dyskinesia or tremor 10/24/2011 follow up 03/13/2011 started on effient, zocor, and atenolol follow up 02/20/2011 [facility]/Dr Christian rojas follow up 02/23/2010 [facility], appt with Dr Bajwa 03/22/10 insomnia 01/12/2010 problems falling and staying asleep, takes nortriptyline Encounters Encounter Performer Location Codes Date ([id number]) OFFICE/OUTPATIENT VISIT EST Diagnosis: Noninfective gastroenteritis and colitis, unspecified[ICD10: K52.9] Diagnosis: Hemorrhage of anus and rectum[ICD10: K62.5] Vonnie MATHEWS DO [facility] CPT-4: 83559 05/26/2019 ([id number]) OFFICE/OUTPATIENT VISIT EST Diagnosis: Other intervertebral disc degeneration, 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] Diagnosis: Other forms of dyspnea[ICD10: R06.09] Vonnie MATHEWS DO [facility] CPT-4: 51638 03/17/2019 OFFICE/OUTPATIENT VISIT EST Diagnosis: Other intervertebral disc degeneration, 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] Diagnosis: Other symptoms and signs involving the musculoskeletal system[ICD10: R29.898] Vonnie MATHEWS DO [facility] CPT-4: 93648 02/18/2019 ([id number]) OFFICE/OUTPATIENT VISIT EST Diagnosis: Other allergic rhinitis[ICD10: J30.89] Akilah Lopez DOLLY MATHEWS [employer] [facility] CPT-4: 49202 01/13/2019 ([id number]) NURSE/OUTPATIENT VISIT EST Diagnosis: Mixed hyperlipidemia[ICD10: E78.2] Diagnosis: Essential (primary) hypertension[ICD10: I10] Diagnosis: Encounter for screening for malignant neoplasm of prostate[ICD10: Z12.5] Diagnosis: Encounter for general adult medical examination with abnormal findings[ICD10: Z00.01] Diagnosis: Benign prostatic hyperplasia without lower urinary tract symptoms[ICD10: N40.0] Vonnie MATHEWS [employer] [facility] CPT-4: 35763 09/04/2018 ([id number]) OFFICE/OUTPATIENT VISIT EST Diagnosis: Otorrhea, left ear[ICD10: H92.12] Diagnosis: Impacted cerumen, right ear[ICD10: H61.21] Verna MATHEWS [employer] [facility] CPT-4: 80270 09/03/2018 ([id number]) OFFICE/OUTPATIENT VISIT EST Diagnosis: Other intervertebral disc degeneration, 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] Diagnosis: Primary insomnia[ICD10: F51.01] Diagnosis: Essential tremor[ICD10: G25.0] Vonnie MATHEWS [employer] [facility] CPT-4: 70293 08/26/2018 ([id number]) OFFICE/OUTPATIENT VISIT EST Diagnosis: Pelvic and perineal pain[ICD10: R10.2] Verna MATHEWS [employer] [facility] CPT-4: 58441 05/15/2018 ([id number]) OFFICE/OUTPATIENT VISIT EST Diagnosis: Encounter for therapeutic drug level monitoring[ICD10: Z51.81] Diagnosis: Acute sinusitis, unspecified[ICD10: J01.90] Diagnosis: Other intervertebral disc degeneration, 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] Diagnosis: Essential tremor[ICD10: G25.0] Diagnosis: Raynaud's syndrome without gangrene[ICD10: I73.00] Verna MATHEWS [employer] [facility] CPT-4: 49001 04/25/2018 ([id number]) OFFICE/OUTPATIENT VISIT EST Diagnosis: Idiopathic urticaria[ICD10: L50.1] Diagnosis: Other urticaria[ICD10: L50.8] Vonnie Colbyranjan COLMENARES Denia MATHEWS [employer] [facility] CPT-4: 14463 11/16/2017 ([id number]) OFFICE/OUTPATIENT VISIT EST Diagnosis: Idiopathic urticaria[ICD10: L50.1] Diagnosis: Other urticaria[ICD10: L50.8] Diagnosis: Other forms of dyspnea[ICD10: R06.09] Vonnie Romuloalyssaranjan KARIE RODGERS Denia MATHEWS [facility] [facility] CPT-4: 62987 11/06/2017 ([id number]) OFFICE/OUTPATIENT VISIT EST Diagnosis: Dyspnea, unspecified[ICD10: R06.00] Diagnosis: Abnormal weight loss[ICD10: R63.4] Vonnie LUCIA [employer] MATHEWS [employer] [facility] CPT-4: 76460 09/03/2017 ([id number]) OFFICE/OUTPATIENT VISIT EST Diagnosis: 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] Diagnosis: Mixed hyperlipidemia[ICD10: E78.2] Diagnosis: Essential tremor[ICD10: G25.0] Diagnosis: Essential (primary) hypertension[ICD10: I10] Diagnosis: Abnormal weight loss[ICD10: R63.4] Vonnie LUCIA Denia MATHEWS [employer] [facility] CPT-4: 86563 08/21/2017 ([id number]) OFFICE/OUTPATIENT VISIT EST Diagnosis: Mixed hyperlipidemia[ICD10: E78.2] Diagnosis: Essential (primary) hypertension[ICD10: I10] Diagnosis: 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] Diagnosis: Anemia, unspecified[ICD10: D64.9] Vonnie MATHEWS DO [facility] CPT-4: 33143 07/31/2017 ([id number]) OFFICE/OUTPATIENT VISIT EST Diagnosis: FLU VACCINE[ICD10: Z23] Vonnie GERMAN [facility] CPT-4: 21880 07/04/2017 ([id number]) OFFICE/OUTPATIENT VISIT EST Diagnosis: Mixed hyperlipidemia[ICD10: E78.2] Diagnosis: Essential tremor[ICD10: G25.0] Diagnosis: 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] Diagnosis: Essential (primary) hypertension[ICD10: I10] Diagnosis: Supraventricular tachycardia[ICD10: I47.1] Diagnosis: Other fatigue[ICD10: R53.83] Diagnosis: Encounter for screening for malignant neoplasm of prostate[ICD10: Z12.5] Vonnie MATHEWS DO [facility] CPT-4: 24587 02/26/2017 ([id number]) OFFICE/OUTPATIENT VISIT EST Diagnosis: Essential tremor[ICD10: G25.0] Vonnie MATHEWS DO [facility] CPT-4: 92958 02/13/2017 ([id number]) OFFICE/OUTPATIENT VISIT EST Diagnosis: Essential tremor[ICD10: G25.0] Diagnosis: Other intervertebral disc degeneration, 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] Vonnie MATHEWS DO [facility] CPT-4: 57785 11/23/2016 ([id number]) OFFICE/OUTPATIENT VISIT EST Diagnosis: FLU VACCINE[ICD10: Z23] Vonnie GERMAN [facility] CPT-4: 20213 06/28/2016 OFFICE/OUTPATIENT VISIT EST Diagnosis: Open bite of right hand, initial encounter[ICD10: S61.451A] Vonnie MATHEWS DO [facility] CPT-4: 97784 05/23/2016 ([id number]) OFFICE/OUTPATIENT VISIT EST Diagnosis: Encounter for general adult medical examination with abnormal findings[ICD10: Z00.01] Diagnosis: Mixed hyperlipidemia[ICD10: E78.2] Diagnosis: Essential tremor[ICD10: G25.0] Diagnosis: 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] Vonnie COLMENARES [employer] NAMRATA [facility] CPT-4: 68714 05/19/2016 ([id number]) OFFICE/OUTPATIENT VISIT EST Diagnosis: HYPERLIPIDEMIA NEC/NOS[ICD9: 272.4] Diagnosis: CAD[ICD9: 414.00] Diagnosis: TACHYCARDIA[ICD9: 785.0] Diagnosis: HYPERTENSION[ICD9: 401.9] Diagnosis: Routine medical exam[ICD9: V70.0] Vonnie Galarza JustinKim [employer]UL[employer] CPT-4: 98803 04/05/2015 ([id number]) OFFICE/OUTPATIENT VISIT EST Diagnosis: HYPERTENSION[ICD9: 401.9] Diagnosis: HYPERLIPIDEMIA NEC/NOS[ICD9: 272.4] Diagnosis: CAD[ICD9: 414.00] Diagnosis: LUMB/LUMBOSAC DISC DEGEN[ICD9: 722.52] Vonnie GASPAR [employer] [facility] CPT-4: 27555 04/01/2015 ([id number]) OFFICE/OUTPATIENT VISIT EST Diagnosis: CHEST PAIN NOS[ICD9: 786.50] Diagnosis: PAIN IN THORACIC SPINE[ICD9: 724.1] Diagnosis: HYPERTENSION[ICD9: 401.9] Diagnosis: GERD[ICD9: 530.81] Vonnie COLMENARES [employer] CPT-4: 77573 01/13/2014 ([id number]) OFFICE/OUTPATIENT VISIT EST Diagnosis: CAD[ICD9: 414.00] Diagnosis: HYPERLIPIDEMIA NEC/NOS[ICD9: 272.4] Vonnie ANNA JustinKim COLBY [facility] CPT-4: 74913 07/19/2012 ([id number]) OFFICE/OUTPATIENT VISIT EST Diagnosis: CAD[ICD9: 414.00] Diagnosis: INSOMNIA NOS[ICD9: 780.52] Vonnie Loza DANAY YULISA [facility] CPT-4: 20940 04/03/2012 ([id number]) OFFICE/OUTPATIENT VISIT EST Diagnosis: CHEST PAIN NOS[ICD9: 786.50] Diagnosis: CAD[ICD9: 414.00] Vonnie MATHEWS DO [facility] CPT-4: 43721 03/22/2012 ([id number]) OFFICE/OUTPATIENT VISIT EST Diagnosis: PROSTATITIS[ICD9: 601.9] Diagnosis: TREMOR NEC[ICD9: 333.1] Vonnie BOWMAN ER [facility] CPT-4: 61433 12/20/2011 OFFICE/OUTPATIENT VISIT EST Diagnosis: TREMOR NEC[ICD9: 333.1] Diagnosis: TACHYCARDIA[ICD9: 785.0] Diagnosis: HYPERTENSION[ICD9: 401.9] Vonnie TOVARR [facility] CPT-4: 44630 10/24/2011 OFFICE/OUTPATIENT VISIT EST Vonnie PERDUE [facility] CPT- 4: 21004 03/13/2011 ([id number]) OFFICE/OUTPATIENT VISIT EST Vonnie MATHEWS [facility] CPT-4: 97385 02/20/2011 ([id number]) OFFICE/OUTPATIENT VISIT, EST Vonnie MATHEWS [facility] CPT-4: 73185 02/23/2010 ([id number]) OFFICE/OUTPATIENT VISIT, EST Vonnie MATHEWS [facility] CPT-4: 80485 01/12/2010 Plan of Care Planned Activity Notes Codes Status Date Visit Diagnosis Plan: Hemorrhage of anus and rectum Di scussion: Update colonoscopy ICD-9 : 569.3 ICD-10 : K62.5 05/26/2019 Visit Diagnosis Plan: Noninfective gastroenteritis and colitis, unspecified Discussion: Flagyl [place] diet Update colonoscopy ICD-9 : 558.9 ICD-10 : K52.9 05/26/2019 Appointment: [facility] [phone] [facility] [place] [facility] request faxed 05/23; ANGELINA with medical records 05/26/19 Hospital Follow Up 05/26/2019 Care Plan: Referral Order SNOMED-CT : 30 [id number] Pending 05/26/2019 Visit Diagnosis Plan: Other intervertebral disc degene ration, lumbar region Discussion: Increase lyrica to 150mg po q HS Continue stretches from PT [facility] Fwup after that appointment ICD-9 : 722.52 ICD-10 : M51.36 03/17/2019 Appointment: Vonnie Mathewstel: [address] [place] [address] [place] FOLLOW UP 03/17/2019 Visit Diagnosis Plan: [...] HS once CT scan results obtained [facility] Follow Up: 3 weeks ICD-9 : 722.52 ICD-10 : M51.36 02/18/2019 Appointment: Vonnie Mathewstel: [address] [place] [address] [place] FOLLOW UP 02/18/2019 Appointment: Vonnie Mathewstel: [address] [place] [address] [place] CANCELED 02/18/2019 Visit Diagnosis Plan: Other [...] ICD-10 : J30.89 01/13/2019 Appointment: Akilah Lopez [facility] [employer] [place] [address] [place] Due for annual wellness ACUTE ILLNESS 01/14/20 Appointment: Vonnie [facility]stel[facility] [phone] [facility] [place] LAB 09/04/2018 Visit Diagnosis Plan: Otorrhea, [...] ICD-10 : H61.21 09/03/2018 Appointment: Verna Ramirez [facility] [employer] [address] ACUTE ILLNESS 09/03/2018 Visit Diagnosis Plan: [...] G25.0 08/26/2018 Appointment: Vonnie Mathews [facility]Ptel[facility] [phone] [facility] FOLLOW UP 08/26/2018 Visit Diagnosis Plan: Pelvic [...] ICD-10 : R10.2 05/15/2018 App[facility]ment[facility] [facility] 05/15/2018 Patient Education: Patient Medication Summary Completed 05/15/2018 Care Plan: US EXAM PELVIC COMPLETE scrotal LOINC : 92693-7 Pending 05/15/2018 Visit Diagnosis Plan: Other intervertebral [...] : J01.90 04/25/2018 Appointment: [facility] [address] [facility] MEDICATION REVIEW 04/25/2018 Patient Education: Patient Medication Summary Completed 04/25/2018 Appointment: Vonnie Mathews WPtel: [phone] [facility] 11/16/2017 Patient Education: Patient Medication Summary Completed 11/16/2017 Visit Diagnosis Plan: Other forms of dyspnea Discussio n: Send copy of overnight pulse ox to pulmonology but only desated 1minute and 24seconds ICD-9 : 786.09 ICD-10 : R06.11/06/2017 Visit Diagnosis Plan: Idiopathic urticaria Discussion: Kenalog/Dexamethasone now and Prednisone and benadryl and notify if worsening, allergy lab testing after symptoms improved Discussion: Kenalog/Dexamethasone now and Prednisone and benadryl and notify if worsening ICD-9 : 708.1 ICD-10 : L50.1 11/06/2017 Appointment: Vonnie Mathews WPtel: [address] [place], [place] [phone] [place] FOLLOW UP 11/06/2017 Patient Education: Patient Medication [...] R63.4 09/03/2017 Appointment: Vonnie Mathews WPtel: [address] [place], [place] [phone] FOLLOW UP 09/03/2017 Patient Education: Patient Medication Summary Completed 09/03/2017 Visit Diagnosis Plan: Mixed hyperlipidemia Discussion: Lab discussed ICD-9 : 272.4 ICD-10 : E78.2 08/21/2017 Visit Diagnosis Plan: Essential tremor Discussion: Sta ble on Primidone ICD-9 : 333.1 ICD-10 : G25.0 08/21/2017 Visit Diagnosis Plan: Atherosclerotic he art disease of [place] coronary artery without angina pectoris Discussion: Sees Cardiology in 2 days To ER if CP returns before ICD-9 : 414.00 ICD-10 : I25.10 08/21/2017 Visit Diagnosis Plan: Abnormal weight loss Discussion: Start daily protein shake or smoothie ICD-9 : 783.21 ICD-10 : R63.4 08/21/2017 Visit Diagnosis Plan: Essential (primary) hypertension Discussion: Stable ICD-9 : 401.9 ICD-10 : I10 08/21/2017 Appointment: Vonnie Mathews WPtel: [address] [place], [place] [phone] [place] FOLLOW UP 08/21/2017 Patient Education: Patient Medication Summary Completed 08/21/2017 Appointment: Vonnie Mathews WPtel: [address] [place], [place] [phone] [place] LAB 07/31/2017 Patient Education: Patient Medication Summary Completed 07/31/2017 Appointment: Vonnie Mathews WPtel: [address] [place] [address] [place] INJECTION 07/04/2017 Patient Education: Patient Medication Summary Completed 07/04/2017 Appointment: Vonnie Mathews WPtel: [address] [place] [address] [place] LAB 02/26/2017 Patient Education: Patient Medication Summary Completed 02/26/2017 Visit Diagnosis Plan: Essential tremor Discussion: Con tinue clonazepam at 1mg q AM and primidone 50mg q HS Follow Up: 3 months ICD-9 : 333.1 ICD-10 : G25.0 02/13/2017 Appointment: Vonnie Mathews WPtel: [address] [place] [address] 02/08 confirmed~sl FOLLOW UP 02/13/2017 Patient Education: Patient Medication Summary Completed 02/13/2017 Appointment: Vonnie Mathews WPtel: [address] [place] [address] [place] RESCHEDULED 01/23/2017 Visit Diagnosis Plan: Other intervertebral disc degene ration, lumbar region Discussion: DC oxycodone Tramadol 50mg 1-2 po TID prn pain Follow Up: 2 months ICD-9 : 722.52 ICD-10 : M51.36 11/23/2016 Visit Diagnosis Plan: Essential tremor Discussion: Inc rease clonazepam to 1mg po BID Discussed sinemet ICD-9 : 333.1 ICD-10 : G25.0 11/23/2016 Appointment: Vonnie Mathews WPtel: [address] [place], [place] [id number] 11/22 confirmed~sl MEDICATION REVIEW 11/23/2016 Patient Education: Patient Medication Summary Completed 11/23/2016 Patient Education: [facility] [employer] - Clonazepam - 18-64 - Dynamic Portal ID Completed 11/23/2016 Appointment: Vonnie Mathews WPtel: [address] [place], [place] [phone] INJECTION 06/28/2016 Patient Education: Patient Medication Summary Completed 06/28/2016 Referral: Fernando Day WPtel: #1 [facility] Shilpa Lopez [id number] [place] [id number] per Maribeth, the patient is [...] if worsening 05/23/2016 Appointment: Vonnie Mathews WPtel: [address] [place] [address] ER Follow UP 05/23/2016 Patient Education: Patient Medication Summary Completed 05/23/2016 Appointment: Vonnie Mathews WPtel: [address] [place], [place] [phone] LAB 05/19/2016 Patient Education: Patient Medication Summary Completed 05/19/2016 Visit Plan: Change coreg to 3.125mg BID Trial of low dose clonazepam 0.5mg BID for tremors Fwup with Dr. Ramsey as scheduled Return for fasting lab--CBC, CMP, TSH, free T4, Lipids, PSA, B12 Proceed with Colonoscopy 05/10/2016 Appointment: Vonnie Mathews WPtel: [address] [place], [place] [phone] 05/09 confirmed~sl Annual Well Visit 05/10/2016 Patient Education: Patient Medication Summary Completed 05/10/2016 Care Plan: Referral Order SNOMED-CT : 30 [id number] Pending 05/10/2016 Appointment: Vonnie Mathews WPtel: [address] [place] [address] [place] Rescheduled for 05/10/16 at 2PM~lb RESCHEDULED 04/26/2016 Referral: Danilo Ramsey WPtel: [address] Referral Initiated 04/29/2015 Appointment: Vonnie Mathews WPtel: [address] [place] [address] [place] LAB 04/05/2015 Patient Education: Patient Medication Summary Completed 04/05/2015 Visit Plan: Return in AM for fasting lab --CMP, lipids, CBC, TSH, PSA Change hydrocodone to oxycodone 7.5/325mg 1-2 po TID Schedule with cardiology Needs colonoscopy once cardiology evaluation complete Will need to restart chol meds after lab Recheck 1mo on pain meds 04/01/2015 Appointment: Vonnie Mathews WPtel: [address] [place] [address] 03/31 confirmed -mf PHYSICAL 04/01/2015 Patient Education: Patient Medication Summary Completed 04/01/2015 Appointment: Vonnie Mathews WPtel: [address] [place] [address] Annual Well Visit 09/23/2014 Visit Plan: Continue protonix Pt has fwu p with Card next month Rec chiropracter or PT for ribs/thoracics being out and could be contributing to chest pain 01/13/2014 Appointment: Vonnie Mathews WPtel: [address] [place] [address] FOLLOW UP 01/13/2014 Patient Education: Patient Medication Summary Completed 01/13/2014 Appointment: Ariella Mcnally WPtel: [address] [place] [address] FOLLOW UP 12/12/2013 Appointment: Malika Cárdenas WPtel: [address] [place] [address] PHYSICAL 12/12/2013 Appointment: Vonnie Mathews WPtel: [address] [place] [address] ACUTE ILLNESS 02/20/2013 Appointment: Vonnie Mathews WPtel: [address] [place] [address] LAB 07/19/2012 Patient Education: Patient Medication Summary Completed 07/19/2012 Appointment: Vonnie Mathews WPtel: [address] [place] [address] FOLLOW UP 04/03/2012 Patient Education: Patient Medication Summary Completed 04/03/2012 Appointment: Vonnie Mathews WPtel: [address] [place] [address] ACUTE ILLNESS 03/22/2012 Patient Education: Patient Medication Summary Completed 03/22/2012 Appointment: Vonnie Mathewstel: [address] [place] [address] FOLLOW UP 12/26/2011 Visit Plan: Add Cipro Continue current eds 12/20/2011 Appointment: Vonnie Mathews WPtel: [address] [place] [address] ACUTE ILLNESS 12/20/2011 Patient Education: Patient Medication Summary Completed 12/20/2011 Visit Plan: Change neurontin to Cymbalta 30mg for 1wk then 60mg QD Add Propranolol for tremor 10/24/2011 Appointment: Vonnie Mathews WPtel: [address] [place] [address] ACUTE ILLNESS 10/24/2011 Appointment: Vonnie Mathews WPtel: [address] [place] [address] ACUTE ILLNESS 10/24/2011 Patient Education: Patient Medication Summary Completed 10/24/2011 Visit Plan: Continue current meds and fw up with Card as scheduled 03/13/2011 Appointment: Vonnie Mathews WPtel: [address] [place], [place] [phone] FOLLOW UP 03/13/2011 Patient Education: Patient Medication Summary Completed 03/13/2011 Visit Plan: Will obtain all records and lab from Guillaume Discussed will likely need heart cath which pt states that Card did talk to him about in the hospital 02/20/2011 Appointment: Vonnie Mathews WPtel: [address] [place], [place] [phone] ACUTE ILLNESS 02/20/2011 Patient Education: Patient Medication Summary Completed 02/20/2011 Visit Plan: Cont Pepcid and Prilosec See Card for cardiac cath. 02/23/2010 Appointment: Vonnie Mathews WPtel: [address] [place], [place] [phone] FOLLOW UP 02/23/2010 Patient Education: Patient Medication Summary Completed 02/23/2010 Visit Plan: Increase Pamelor to 75mg qhs Increase Hydrocodone to 10/325mg 1-2 po q6 prn 01/12/2010 Appointment: Vonnie Mathews WPtel: [address] [place] [phone] ACUTE ILLNESS 01/12/2010 Patient Education: Patient Medication Summary Completed 01/12/2010 Referral: Iván Pardo WPtel: [facility] [place] [phone] [facility], [id number] [place] Referral Initiated Referral: Fernando Day WPtel: #1 [facility] [place] Referral Completed Referral: Fernando Day WPtel: #1 [facility] [place] Referral Appointment Requested Instructions [...]
--- OUTSIDE RECORDS SUMMARY | 2020-02-10 08:38 | XMS REPORT | Continuity of Care Document ---
Author Organization Unknown Address Unknown Phone Unavailable Allergies Active Description Code Type Severity Reaction Onset Reported/Identified Relationship to Patient Clinical Status Yes No Known Drug Allergies [id number] Drug Allergy Unknown N/A 01/30/2018 Medications There is no data. Problems Date Dx Coded Attending Type Code Diagnosis Diagnosed By 06/01/2015 ELY WILLETT FACC, POORNIMA FACP CCDS Ot 333.1 TREMOR NEC 06/01/2015 ELY WILLETT FACC, POORNIMA FACP CCDS Ot 414.01 CORONARY ATHEROSCLEROSIS OF [place] CORON 06/01/2015 POORNIMA GARVES MD, FACC FACP CCDS Ot 786.59 CHEST [...] FACC, ALI FACP CCDS Ot I25.10 11/08/2015 ELY WILLETT FACC, POORNIMA FACP CCDS Ot R00.2 11/08/2015 ELY WILLETT FACC, POORNIMA FACP CCDS Ot Z79.02 11/08/2015 ELY WILLETT FACC, ALI FACP CCDS Ot Z79.899 11/23/2015 ELY WILLETT FACC, ALI FACP CCDS Ot G25.0 11/23/2015 ELY WILLETT FACC, ALI FACP CCDS Ot I25.10 11/23/2015 ELY WILLETT FACC, ALI FACP CCDS Ot R00.2 11/23/2015 ELY WILLETT FACC, ALI FACP CCDS Ot Z79.02 11/23/2015 ELY WILLETT FACC, ALI FACP CCDS Ot Z79.899 01/03/2016 ELY MD FACC, ALI FACP CCDS Ot G25.0 ESSENTIAL TREMOR 01/03/2016 ELY FACC, ALI FACP CCDS Ot I25.10 ATHSCL HEART DISEASE OF [place] CORONARY 01/03/2016 ELY MD FACC, ALI FACP CCDS Ot R00.2 PALPITATIONS 01/03/2016 ELY FACC, ALI FACP CCDS Ot Z79.02 BOTTLE CLEANER (CURRENT) USE OF ANTITHROMBOTI 01/03/2016 ELY MD FACC, ALI FACP CCDS Ot Z79.899 OTHER BOTTLE CLEANER (CURRENT) DRUG THERAPY 02/03/2016 ELY MD FACC, ALI FACP CCDS Ot G25.0 ESSENTIAL TREMOR 02/03/2016 ELY FACC, ALI FACP CCDS Ot I25.10 ATHSCL HEART DISEASE OF [place] CORONARY 02/03/2016 ELY MD FACC, ALI FACP CCDS Ot R00.2 PALPITATIONS 02/03/2016 ELY MD FACC, ALI FACP CCDS Ot Z79.02 CORRECTION (CURRENT) USE OF ANTITHROMBOTI 02/03/2016 ELY WILLETT FAC, ALI FACP CCDS Ot Z79.899 OTHER BOTTLE CLEANER (CURRENT) DRUG THERAPY 03/16/2016 ELY WILLETT FACC, ALI FACP CCDS Ot G25.0 ESSENTIAL TREMOR 03/16/2016 ELY MD FACC, ALI FACP CCDS Ot I25.10 ATHSCL HEART DISEASE OF [place] CORONARY 03/16/2016 ELY MD FACC, ALI FACP CCDS Ot R00.2 PALPITATIONS 03/16/2016 ELY WILLETT FAC, ALI FACP CCDS Ot Z79.02 BOTTLE CLEANER (CURRENT) USE OF ANTITHROMBOTI 03/16/2016 ELY WILLETT FACC, ALI FACP CCDS Ot Z79.899 OTHER CORRECTION (CURRENT) DRUG THERAPY 05/21/2016 ALEXIS DEAN Ot I 10 ESSENTIAL (PRIMARY) HYPERTENSION 05/21/2016 ALEXIS DEAN Ot S61.452A OPEN BITE OF LEFT HAND, INITIAL ENCOUNTE 05/21/2016 ALEXIS DEAN Ot W54.0XXA BITTEN BY DOG, INITIAL ENCOUNTER 05/21/2016 ALEXIS DEAN Ot Y99.8 OTHER EXTERNAL CAUSE STATUS 05/21/2016 ALEXIS DEAN Ot Z20.3 CONTACT WITH AND (SUSPECTED) EXPOSURE TO 05/21/2016 ALEXIS DEAN Ot Z 23 ENCOUNTER FOR IMMUNIZATION 05/21/2016 ALEXIS DEAN Ot Z79.82 BOTTLE CLEANER (CURRENT) USE OF ASPIRIN 05/21/2016 ALEXIS DEAN Ot Z79.899 OTHER BOTTLE CLEANER (CURRENT) DRUG THERAPY 05/21/2016 ALEXIS DEAN Ot Z95.5 PRESENCE OF CORONARY ANGIOPLASTY IMPLANT 06/06/2016 ALEXIS DEAN Ot I 10 ESSENTIAL (PRIMARY) HYPERTENSION 06/06/2016 ALEXIS DEAN Ot S61.452A OPEN BITE OF LEFT HAND, INITIAL ENCOUNTE 06/06/2016 ALEXIS DEAN Ot W54.0XXA BITTEN BY DOG, INITIAL ENCOUNTER 06/06/2016 ALEXIS DEAN Ot Y99.8 OTHER EXTERNAL CAUSE STATUS 06/06/2016 ALEXIS DEAN Ot Z20.3 CONTACT WITH AND (SUSPECTED) EXPOSURE TO 06/06/2016 ALEXIS DEAN Ot Z 23 ENCOUNTER FOR IMMUNIZATION 06/06/2016 ALEXIS DEAN Ot Z79.82 BOTTLE CLEANER (CURRENT) USE OF ASPIRIN 06/06/2016 ALEXIS DEAN Ot Z79.899 OTHER BOTTLE CLEANER (CURRENT) DRUG THERAPY 06/06/2016 ALEXIS DEAN Ot Z95.5 PRESENCE OF CORONARY ANGIOPLASTY IMPLANT 06/15/2016 ROSALINDA DOS SANTOS DO Ot Z01.818 ENCOUNTER FOR OTHER PREPROCEDURAL EXAMIN 06/15/2016 ROSALINDA DOS SANTOS DO Ot Z12. 11 ENCOUNTER FOR SCREENING FOR MALIGNANT NE 06/19/2016 ROSALINDA DOS SANTOS DO Ot Z01.818 ENCOUNTER FOR OTHER PREPROCEDURAL EXAMIN 06/19/2016 ROSALINDA DOS SANTOS DO Ot Z12. 11 ENCOUNTER FOR SCREENING FOR MALIGNANT NE 06/19/2016 ROSALINDA DOS SANTOS DO Ot Z01.818 ENCOUNTER FOR OTHER PREPROCEDURAL EXAMIN 06/19/2016 ROSALINDA DOS SANTOS DO Ot Z12. 11 ENCOUNTER FOR SCREENING FOR MALIGNANT NE 06/20/2016 ROSALINDA DOS SANTOS DO Ot Z01.818 ENCOUNTER FOR OTHER PREPROCEDURAL EXAMIN 06/20/2016 DOS SANTOSROSALINDA QUINTANA DO Ot Z12. 11 ENCOUNTER FOR SCREENING FOR MALIGNANT NE 06/20/2016 DOS SANTOS DO, ROSALINDA D Ot K57. 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 11 ENCOUNTER FOR SCREENING FOR MALIGNANT NE 06/22/2016 DOS SANTOS DO, ROSALINDA D Ot K57. 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 11 ENCOUNTER FOR SCREENING FOR MALIGNANT NE 06/22/2016 DOS SANTOS DO, ROSALINDA D Ot K57. 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 11 ENCOUNTER FOR SCREENING FOR MALIGNANT NE 06/26/2016 DOS SANTOS DO, ROSALINDA D Ot K57. 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 11 ENCOUNTER FOR SCREENING FOR MALIGNANT NE 07/04/2016 DOS SANTOS DOROSALINDA Ot K57. 30 DVRTCLOS OF LG INT W/O PERFORATION OR AB 07/04/2016 DIXON DOROSALINDA Ot Z12. 11 ENCOUNTER FOR SCREENING FOR MALIGNANT NE 08/10/2016 ALEXIS DEAN Ot I 10 ESSENTIAL (PRIMARY) HYPERTENSION 08/10/2016 ALEXIS DEAN Ot T78.3XXA ANGIONEUROTIC EDEMA, INITIAL ENCOUNTER 08/10/2016 ALEXIS DEAN Ot Z79.82 CORRECTION (CURRENT) USE OF ASPIRIN 08/10/2016 ALEXIS DEAN Ot Z79.899 OTHER BOTTLE CLEANER (CURRENT) DRUG THERAPY 08/10/2016 ALEXIS DEAN Ot Z95.5 PRESENCE OF CORONARY ANGIOPLASTY IMPLANT 08/18/2016 ALEXIS DEAN Ot I 10 ESSENTIAL (PRIMARY) HYPERTENSION 08/18/2016 ALEXIS DEAN Ot T78.3XXA ANGIONEUROTIC EDEMA, INITIAL ENCOUNTER 08/18/2016 ALEXIS DEAN Ot Z79.82 CORRECTION (CURRENT) USE OF ASPIRIN 08/18/2016 ALEXIS DEAN Ot Z79.899 OTHER CORRECTION (CURRENT) DRUG THERAPY 08/18/2016 ALEXIS DEAN Ot Z95.5 PRESENCE OF CORONARY ANGIOPLASTY IMPLANT 08/21/2017 ELY WILLETT FACC, ALI FACP CCDS Ot G25.0 ESSENTIAL TREMOR 08/21/2017 ELY WILLETT FACC, ALI FACP CCDS Ot I25.10 ATHSCL HEART DISEASE OF [place] CORONARY 08/21/2017 ELY WILLETT FACC, ALI FACP CCDS Ot R00.2 PALPITATIONS 08/21/2017 ELY WILLETT FACC, ALI FACP CCDS Ot Z79.02 CORRECTION (CURRENT) USE OF ANTITHROMBOTI 08/21/2017 ELY WILLETT FACC, ALI FACP CCDS Ot Z79.899 OTHER BOTTLE CLEANER (CURRENT) DRUG THERAPY 08/28/2017 ELY WILLETT FACC, ALI FACP CCDS Ot E78.5 HYPERLIPIDEMIA, UNSPECIFIED 08/28/2017 ELY FUC, ALI FACP CCDS Ot I25.10 ATHSCL HEART DISEASE OF [place] CORONARY 08/28/2017 ELY WILLETT FACC, ALI FACP CCDS Ot R07.9 CHEST PAIN, UNSPECIFIED 08/28/2017 ELY WILLETT FACC, ALI FACP CCDS Ot R53.83 OTHER FATIGUE 08/28/2017 ELY WILLETT FACC, ALI FACP CCDS Ot Z79.02 BOTTLE CLEANER (CURRENT) USE OF ANTITHROMBOTI 08/28/2017 ELY WILLETT FACC, ALI FACP CCDS Ot Z79.82 BOTTLE CLEANER (CURRENT) USE OF ASPIRIN 08/28/2017 ELY WILLETT FACC, ALI FACP CCDS Ot Z79.899 OTHER BOTTLE CLEANER (CURRENT) DRUG THERAPY 08/28/2017 ELY WILLETT FACC, ALI FACP CCDS Ot Z87.891 PERSONAL HISTORY OF NICOTINE DEPENDENCE 08/28/2017 ELY FUC, ALI FACP CCDS Ot Z95.5 PRESENCE OF CORONARY ANGIOPLASTY IMPLANT 08/30/2017 ELY FUC, ALI FACP CCDS Ot E78.5 HYPERLIPIDEMIA, UNSPECIFIED 08/30/2017 ELY WILLETT FACC, ALI FACP CCDS Ot I25.10 ATHSCL HEART DISEASE OF [place] CORONARY 08/30/2017 ELY FUC, ALI FACP CCDS Ot R07.9 CHEST PAIN, UNSPECIFIED 08/30/2017 ELY WILLETT FACC, ALI FACP CCDS Ot R53.83 OTHER FATIGUE 08/30/2017 ELY WILLETT FACC, ALI FACP CCDS Ot Z79.02 CORRECTION (CURRENT) USE OF ANTITHROMBOTI 08/30/2017 ELY WILLETT FACC, ALI FACP CCDS Ot Z79.82 CORRECTION (CURRENT) USE OF ASPIRIN 08/30/2017 ELY WILLETT FACC, ALI FACP CCDS Ot Z79.899 OTHER BOTTLE CLEANER (CURRENT) DRUG THERAPY 08/30/2017 ELY WILLETT FACC, ALI FACP CCDS Ot Z87.891 PERSONAL HISTORY OF NICOTINE DEPENDENCE 08/30/2017 ELY WILLETT FACC, ALI FACP CCDS Ot Z95.5 PRESENCE OF CORONARY ANGIOPLASTY IMPLANT 09/05/2017 ELY WILLETT FACC, ALI FACP CCDS Ot G25.0 ESSENTIAL TREMOR 09/05/2017 ELY WILLETT FACC, ALI FACP CCDS Ot I25.10 ATHSCL HEART DISEASE OF [place] CORONARY 09/05/2017 ELY WILLETT FACC, POORNIMA FACP CCDS Ot R00.2 PALPITATIONS 09/05/2017 ELY WILLETT FACC, ALI FACP CCDS Ot Z79.02 BOTTLE CLEANER (CURRENT) USE OF ANTITHROMBOTI 09/05/2017 ELY WILLETT FACC, ALI FACP CCDS Ot Z79.899 OTHER CORRECTION (CURRENT) DRUG THERAPY 09/05/2017 VONNIE MATHEWS DO S Ot J44.9 CHRONIC OBSTRUCTIVE PULMONARY DISEASE, U 09/12/2017 SONU MATHEWS DOLINE S Ot J44.9 CHRONIC OBSTRUCTIVE PULMONARY DISEASE, U 09/17/2017 VONNIE MATHEWS DO S Ot J98.4 OTHER DISORDERS OF LUNG 09/26/2017 JOELLE MATHEWS DOQUELINE S Ot J44.9 CHRONIC OBSTRUCTIVE PULMONARY DISEASE, U 09/26/2017 SONU MATHEWS DOLINE S Ot R06.09 OTHER FORMS OF DYSPNEA 10/05/2017 JOELLE MATHEWS DOQUELINE S Ot J98.4 OTHER DISORDERS OF LUNG 01/19/2018 JUAN IRWIN DO Ot F41.9 ANXIETY DISORDER, UNSPECIFIED 01/19/2018 JUAN IRWIN DO Ot G47.9 SLEEP DISORDER, UNSPECIFIED 01/19/2018 JUAN IRWIN DO Ot N20.0 CALCULUS OF KIDNEY 01/19/2018 ALIDA DO, JUAN K Ot R10.31 RIGHT LOWER QUADRANT PAIN 01/19/2018 ALIDA DO, JUAN K Ot R10.32 LEFT LOWER QUADRANT PAIN 01/19/2018 ALIDA DO, UJAN K Ot R10.9 UNSPECIFIED ABDOMINAL PAIN 01/19/2018 [...] MICROSCOPIC HEMATURIA 01/30/2018 SOFI DUNN MD Ot Z01.8 18 ENCOUNTER FOR OTHER PREPROCEDURAL EXAMIN 01/30/2018 SOFI DUNN MD Ot Z11.2 ENCOUNTER FOR SCREENING FOR OTHER BACTER 2018 SOFI DUNN MD Ot Z01.8 18 ENCOUNTER FOR OTHER PREPROCEDURAL EXAMIN 2018 SOFI DUNN MD Ot Z11.2 ENCOUNTER FOR SCREENING FOR OTHER BACTER 02/05/2018 SOFI DUNN MD Ot Z01.8 18 ENCOUNTER FOR OTHER PREPROCEDURAL EXAMIN 02/05/2018 SOFI DUNN MD Ot Z11.2 ENCOUNTER FOR SCREENING FOR OTHER BACTER 02/05/2018 SOFI DUNN MD Ot I10 ESSENTIAL (PRIMARY) HYPERTENSION 02/05/2018 SOFI DUNN MD Ot I25.1 0 ATHSCL HEART DISEASE OF [place] CORONARY 02/05/2018 SOFI DUNN MD Ot N20.1 CALCULUS OF URETER 02/05/2018 SOFI DUNN MD Ot Z79.8 2 CORRECTION (CURRENT) USE OF ASPIRIN 02/05/2018 MONA MD, SOFI A Ot Z79.8 99 OTHER CORRECTION (CURRENT) DRUG THERAPY 02/05/2018 SOFI DUNN MD Ot Z95.5 PRESENCE OF CORONARY ANGIOPLASTY IMPLANT 02/13/2018 SOFI DUNN MD Ot N20.0 CALCULUS OF KIDNEY 02/23/2018 SOFI DUNN MD Ot I10 ESSENTIAL (PRIMARY) HYPERTENSION 02/23/2018 SOFI DUNN MD Ot I25.1 0 ATHSCL HEART DISEASE OF [place] CORONARY 02/23/2018 SOFI DUNN MD Ot N20.1 CALCULUS OF URETER 02/23/2018 SOFI DUNN MD Ot Z79.8 2 BOTTLE CLEANER (CURRENT) USE OF ASPIRIN 02/23/2018 SOFI DUNN MD Ot Z79.8 99 OTHER CORRECTION (CURRENT) DRUG THERAPY 02/23/2018 SOFI DUNN MD Ot Z95.5 PRESENCE OF CORONARY ANGIOPLASTY IMPLANT 02/26/2018 SOFI DUNN MD Ot N20.0 CALCULUS OF KIDNEY 02/26/2018 SOFI DUNN MD Ot Z01.8 18 ENCOUNTER FOR OTHER PREPROCEDURAL EXAMIN 03/04/2018 ELY WILLETT FACC, ALI FACP CCDS Ot G25.0 ESSENTIAL TREMOR 03/04/2018 ELY WILLETT FACC, ALI FACP CCDS Ot I25.10 ATHSCL HEART DISEASE OF [place] CORONARY 03/04/2018 ELY WILLETT FACC, ALI FACP CCDS Ot R00.2 PALPITATIONS 03/04/2018 ELY WILLETT FACC, ALI FACP CCDS Ot Z79.02 BOTTLE CLEANER (CURRENT) USE OF ANTITHROMBOTI 03/04/2018 ELY WILLETT FACC, ALI FACP CCDS Ot Z79.899 OTHER BOTTLE CLEANER (CURRENT) DRUG THERAPY 03/04/2018 VONNIE MATHEWS DO S Ot J44.9 CHRONIC OBSTRUCTIVE PULMONARY DISEASE, U 03/04/2018 VONNIE MATHEWS DO S Ot J44.9 CHRONIC OBSTRUCTIVE PULMONARY DISEASE, U 03/04/2018 VONNIE MATHEWS DO S Ot R06.09 OTHER FORMS OF DYSPNEA 03/04/2018 VONNIE MATHEWS DO S Ot J98.4 OTHER DISORDERS OF LUNG 03/04/2018 MONA MD, SOFI A Ot N20.0 CALCULUS OF KIDNEY 03/04/2018 MONA WILLETT, SOFI Spence Ot Z01.8 18 ENCOUNTER FOR OTHER PREPROCEDURAL EXAMIN 03/04/2018 MONA WILLETT, SOFI Spence Ot N20.0 CALCULUS OF KIDNEY 03/04/2018 MONA WILLETT, SOFI Spence Ot N20.0 CALCULUS OF KIDNEY 03/04/2018 VONNIE MATHEWS DO S Ot J98.4 OTHER DISORDERS OF LUNG 03/04/2018 ANTOINENDER JOELLE MACKENZIEVONNIE S Ot J44.9 CHRONIC OBSTRUCTIVE PULMONARY DISEASE, U 03/04/2018 ANTOINENDER , VONNIE S Ot R06.09 OTHER FORMS OF DYSPNEA 03/21/2018 MONA WILLETT, SOFI Spence Ot N20.0 CALCULUS OF KIDNEY 04/02/2018 MONA WILLETT, SOFI Spence Ot N20.0 CALCULUS OF KIDNEY 04/02/2018 MONA WILLETT, SOFI Spence Ot N20.0 CALCULUS OF KIDNEY 04/02/2018 ANTOINENDER SONU MACKENZIELINE S Ot J98.4 OTHER DISORDERS OF LUNG 04/02/2018 ANTOINENDER JOELLE MACKENZIEVONNIE S Ot J44.9 CHRONIC OBSTRUCTIVE PULMONARY DISEASE, U 04/02/2018 COLBYER JOELLE MACKENZIEVONNIE S Ot R06.09 OTHER FORMS OF DYSPNEA 05/15/2018 ELY WILLETT FACC, ALI FACP CCDS Ot G25.0 ESSENTIAL TREMOR 05/15/2018 ELY FUC, ALI FACP CCDS Ot I25.10 ATHSCL HEART DISEASE OF [place] CORONARY 05/15/2018 ELY WILLETT FACC, ALI FACP CCDS Ot R00.2 PALPITATIONS 05/15/2018 ELY WILLETT FACC, ALI FACP CCDS Ot Z79.02 BOTTLE CLEANER (CURRENT) USE OF ANTITHROMBOTI 05/15/2018 ELY WILLETT FACC, ALI FACP CCDS Ot Z79.899 OTHER CORRECTION (CURRENT) DRUG THERAPY 05/15/2018 JOELLE MATHEWS DOQUELINE S Ot J44.9 CHRONIC OBSTRUCTIVE PULMONARY DISEASE, U 05/15/2018 COLBYER JOELLE MACKENZIEVONNIE S Ot J44.9 CHRONIC OBSTRUCTIVE PULMONARY DISEASE, U 05/15/2018 JOELLE MATHEWS DOQUELINE S Ot R06.09 OTHER FORMS OF DYSPNEA 05/15/2018 SONU MATHEWS DOLINE S Ot J98.4 OTHER DISORDERS OF LUNG 05/15/2018 SOFI DUNN MD Ot N20.0 CALCULUS OF KIDNEY 05/15/2018 SOFI DUNN MD Ot Z01.8 18 ENCOUNTER FOR OTHER PREPROCEDURAL EXAMIN 05/15/2018 SOFI DUNN MD Ot N20.0 CALCULUS OF KIDNEY 05/15/2018 ELY WILLETT FACC, ALI FACP CCDS Ot G25.0 ESSENTIAL TREMOR 05/15/2018 ELY WILLETT FACC, ALI FACP CCDS Ot I25.10 ATHSCL HEART DISEASE OF [place] CORONARY 05/15/2018 ELY WILLETT FACC, ALI FACP CCDS Ot R00.2 PALPITATIONS 05/15/2018 ELY WILLETT FACC, ALI FACP CCDS Ot Z79.02 BOTTLE CLEANER (CURRENT) USE OF ANTITHROMBOTI 05/15/2018 ELY WILLETT FACC, ALI FACP CCDS Ot Z79.899 OTHER BOTTLE CLEANER (CURRENT) DRUG THERAPY 05/15/2018 JOELLE MATHEWS DOQUELINE S Ot J44.9 CHRONIC OBSTRUCTIVE PULMONARY DISEASE, U 05/15/2018 JOELLE MATHEWS DOQUELINE S Ot J44.9 CHRONIC OBSTRUCTIVE PULMONARY DISEASE, U 05/15/2018 SONU MATHEWS DOLINE S Ot R06.09 OTHER FORMS OF DYSPNEA 05/15/2018 JOELLE MATHEWS DOQUELINE S Ot J98.4 OTHER DISORDERS OF LUNG 05/15/2018 SOFI DUNN MD Ot N20.0 CALCULUS OF KIDNEY 05/15/2018 SOFI DUNN MD Ot Z01.8 18 ENCOUNTER FOR OTHER PREPROCEDURAL EXAMIN 05/15/2018 SOFI DUNN MD Ot N20.0 CALCULUS OF KIDNEY 05/16/2018 TOR, BABAK R DIRECTOR TELECOMMUNICATIONS Ot N50.812 LEFT TESTICULAR PAIN 05/16/2018 TOR, BABAK R DIRECTOR TELECOMMUNICATIONS Ot R10.2 PELVIC AND PERINEAL PAIN 05/22/2018 TOR, BABAK R DIRECTOR TELECOMMUNICATIONS Ot N50.812 LEFT TESTICULAR PAIN 05/22/2018 TOR, BABAK R DIRECTOR TELECOMMUNICATIONS Ot R10.2 PELVIC AND PERINEAL PAIN 06/05/2018 TOR, BABAK R DIRECTOR TELECOMMUNICATIONS Ot N50.812 LEFT TESTICULAR PAIN 06/05/2018 TOR, BABAK R DIRECTOR TELECOMMUNICATIONS Ot R10.2 PELVIC AND PERINEAL PAIN 06/27/2018 TOR, BABAK R DIRECTOR TELECOMMUNICATIONS Ot N50.812 LEFT TESTICULAR PAIN 06/27/2018 TOR, BABAK R DIRECTOR TELECOMMUNICATIONS Ot R10.2 PELVIC AND PERINEAL PAIN 02/03/2019 SOFI DUNN MD Ot 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 02/03/2019 SOFI DUNN MD Ot N20.0 CALCULUS OF KIDNEY 02/03/2019 SOFI DUNN MD, Ot 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 02/03/2019 SOFI DUNN MD Ot N20.0 CALCULUS OF KIDNEY 02/04/2019 ELY WILLETT FACC, POORNIMA FACP CCDS Ot I25.119 ATHSCL HEART DISEASE OF [place] COR ART W 02/04/2019 ELY WILLETT FACAruna, ALI FACP CCDS Ot I95.9 HYPOTENSION, UNSPECIFIED 02/04/2019 ELY WILLETT FACC, ALI FACP CCDS Ot R00.2 PALPITATIONS 02/04/2019 ELY WILLETT FACC, ALI FACP CCDS Ot R53.83 OTHER FATIGUE 02/04/2019 ELY WILLETT FACC, ALI FACP CCDS Ot Z45.09 ENCOUNTER FOR ADJUSTMENT AND MANAGEMENT 02/04/2019 ELY WILLETT FACC, POORNIMA FACP CCDS Ot Z79.02 CORRECTION (CURRENT) USE OF ANTITHROMBOTI 02/04/2019 ELY WILLETT FACC, ALI FACP CCDS Ot Z79.82 BOTTLE CLEANER (CURRENT) USE OF ASPIRIN 02/04/2019 ELY WILLETT FACC, ALI FACP CCDS Ot Z79.899 OTHER CORRECTION (CURRENT) DRUG THERAPY 02/04/2019 ELY WILLETT FACC, ALI FACP CCDS Ot Z87.891 PERSONAL HISTORY OF NICOTINE DEPENDENCE 02/06/2019 SOFI DUNN MD Ot 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 02/06/2019 SOFI DUNN MD Ot N20.0 CALCULUS OF KIDNEY 02/07/2019 ELY WILLETT FACC, ALI FACP CCDS Ot I25.119 ATHSCL HEART DISEASE OF [place] COR ART W 02/07/2019 ELY WILLETT FACC, POORNIMA FACP CCDS Ot I95.9 HYPOTENSION, UNSPECIFIED 02/07/2019 ELY WILLETT FACC, ALI FACP CCDS Ot R00.2 PALPITATIONS 02/07/2019 ELY WILLETT FACC, POORNIMA FACP CCDS Ot R53.83 OTHER FATIGUE 02/07/2019 ELY WILLETT FACC, POORNIMA FACP CCDS Ot Z45.09 ENCOUNTER FOR ADJUSTMENT AND MANAGEMENT 02/07/2019 POORNIMA GRAVES MD, FACC FACP CCDS Ot Z79.02 BOTTLE CLEANER (CURRENT) USE OF ANTITHROMBOTI 02/07/2019 POORNIMA GRAVES MD, FACC FACP CCDS Ot Z79.82 BOTTLE CLEANER (CURRENT) USE OF ASPIRIN 02/07/2019 POORNIMA GRAVES MD, FACC FACP CCDS Ot Z79.899 OTHER BOTTLE CLEANER (CURRENT) DRUG THERAPY 02/07/2019 ELY WILLETT FACC, POORNIMA FACP CCDS Ot Z87.891 PERSONAL HISTORY OF NICOTINE DEPENDENCE 02/09/2019 NICOLÁS LACY MD Ot E78.00 PURE HYPERCHOLESTEROLEMIA, UNSPECIFIED 02/09/2019 NICOLÁS LACY MD Ot F41.9 ANXIETY DISORDER, UNSPECIFIED 02/09/2019 NICOLÁS LACY MD Ot I10 ESSENTIAL (PRIMARY) HYPERTENSION 02/09/2019 NICOLÁS LACY MD Ot I25.10 ATHSCL HEART DISEASE OF [place] CORONARY 02/09/2019 NICOLÁS LACY MD Ot I25.2 OLD MYOCARDIAL INFARCTION 02/09/2019 NICOLÁS LACY MD Ot I73.9 PERIPHERAL VASCULAR DISEASE, UNSPECIFIED 02/09/2019 NICOLÁS LACY MD Ot R20.0 ANESTHESIA OF SKIN 02/09/2019 NICOLÁS LACY MD Ot R20.2 PARESTHESIA OF SKIN 02/09/2019 NICOLÁS LACY MD Ot W18.30XA FALL ON SAME LEVEL, UNSPECIFIED, INITIAL 02/09/2019 NICOLÁS LACY MD Ot Z79.02 BOTTLE CLEANER (CURRENT) USE OF ANTITHROMBOTI 02/09/2019 NICOLÁS LACY MD Ot Z79.82 BOTTLE CLEANER (CURRENT) USE OF ASPIRIN 02/09/2019 NICOLÁS LACY MD Ot Z87.442 PERSONAL HISTORY OF URINARY CALCULI 02/09/2019 NICOLÁS LACY MD Ot Z87.891 PERSONAL HISTORY OF NICOTINE DEPENDENCE 02/09/2019 NICOLÁS LACY MD Ot Z95.5 PRESENCE OF CORONARY ANGIOPLASTY IMPLANT 02/09/2019 NICOLÁS LACY MD Ot Z98.890 OTHER SPECIFIED POSTPROCEDURAL STATES 02/10/2019 ELY WILLETT FACC, ALI FACP CCDS Ot I25.119 ATHSCL HEART DISEASE OF [place] COR ART W 02/10/2019 ELY WILLETT FACC, ALI FACP CCDS Ot I95.9 HYPOTENSION, UNSPECIFIED 02/10/2019 ELY WILLETT FACC, ALI FACP CCDS Ot R00.2 PALPITATIONS 02/10/2019 ELY WILLETT FACC, ALI FACP CCDS Ot R53.83 OTHER FATIGUE 02/10/2019 ELY WILLETT FACC, ALI FACP CCDS Ot Z45.09 ENCOUNTER FOR ADJUSTMENT AND MANAGEMENT 02/10/2019 ELY WILLETT FACC, ALI FACP CCDS Ot Z79.02 CORRECTION (CURRENT) USE OF ANTITHROMBOTI 02/10/2019 ELY WILLETT FACC ALI FACP CCDS Ot Z79.82 BOTTLE CLEANER (CURRENT) USE OF ASPIRIN 02/10/2019 ELY WILLETT FACC, ALI FACP CCDS Ot Z79.899 OTHER BOTTLE CLEANER (CURRENT) DRUG THERAPY 02/10/2019 ELY WILLETT FACC ALI FACP CCDS Ot Z87.891 PERSONAL HISTORY OF NICOTINE DEPENDENCE 02/13/2019 NICOLÁS LACY MD Ot E78.00 PURE HYPERCHOLESTEROLEMIA, UNSPECIFIED 02/13/2019 NICOLÁS LACY MD Ot F41.9 ANXIETY DISORDER, UNSPECIFIED 02/13/2019 NICOLÁS LACY MD Ot I10 ESSENTIAL (PRIMARY) HYPERTENSION 02/13/2019 NICOLÁS LACY MD Ot I25.10 ATHSCL HEART DISEASE OF [place] CORONARY 02/13/2019 NICOLÁS LACY MD Ot I25.2 OLD MYOCARDIAL INFARCTION 02/13/2019 NICOLÁS LACY MD Ot I73.9 PERIPHERAL VASCULAR DISEASE, UNSPECIFIED 02/13/2019 NICOLÁS LACY MD, Ot R20.0 ANESTHESIA OF SKIN 02/13/2019 NICOLÁS LACY MD Ot R20.2 PARESTHESIA OF SKIN 02/13/2019 NICOLÁS LACY MD, Ot W18.30XA FALL ON SAME LEVEL, UNSPECIFIED, INITIAL 02/13/2019 NICOLÁS LACY MD Ot Z79.02 CORRECTION (CURRENT) USE OF ANTITHROMBOTI 02/13/2019 NICOLÁS LACY MD, Ot Z79.82 CORRECTION (CURRENT) USE OF ASPIRIN 02/13/2019 NICOLÁS LACY MD, Ot Z87.442 PERSONAL HISTORY OF URINARY CALCULI 02/13/2019 NICOLÁS LACY MD, Ot Z87.891 PERSONAL HISTORY OF NICOTINE DEPENDENCE 02/13/2019 NICOLÁS LACY MD Ot Z95.5 PRESENCE OF CORONARY ANGIOPLASTY IMPLANT 02/13/2019 NICOLÁS LACY MD Ot Z98.890 OTHER SPECIFIED POSTPROCEDURAL STATES 02/13/2019 NICOLÁS LACY MD Ot E78.00 PURE HYPERCHOLESTEROLEMIA, UNSPECIFIED 02/13/2019 NICOLÁS LACY MD Ot F41.9 ANXIETY DISORDER, UNSPECIFIED 02/13/2019 NICOLÁS LACY MD Ot I10 ESSENTIAL (PRIMARY) HYPERTENSION 02/13/2019 NICOLÁS LACY MD Ot I25.10 ATHSCL HEART DISEASE OF [place] CORONARY 02/13/2019 NICOLÁS LACY MD Ot I25.2 OLD MYOCARDIAL INFARCTION 02/13/2019 NICOLÁS LACY MD Ot I73.9 PERIPHERAL VASCULAR DISEASE, UNSPECIFIED 02/13/2019 NICOLÁS LACY MD Ot R20.0 ANESTHESIA OF SKIN 02/13/2019 NICOLÁS LACY MD Ot R20.2 PARESTHESIA OF SKIN 02/13/2019 NICOLÁS LACY MD Ot W18.30XA FALL ON SAME LEVEL, UNSPECIFIED, INITIAL 02/13/2019 NICOLÁS LACY MD, Ot Z79.02 BOTTLE CLEANER (CURRENT) USE OF ANTITHROMBOTI 02/13/2019 NICOLÁS LACY MD Ot Z79.82 CORRECTION (CURRENT) USE OF ASPIRIN 02/13/2019 NICOLÁS LACY MD, Ot Z87.442 PERSONAL HISTORY OF URINARY CALCULI 02/13/2019 NICOLÁS LACY MD Ot Z87.891 PERSONAL HISTORY OF NICOTINE DEPENDENCE 02/13/2019 NICOLÁS LACY MD Ot Z95.5 PRESENCE OF CORONARY ANGIOPLASTY IMPLANT 02/13/2019 NICOLÁS LACY MD Ot Z98.890 OTHER SPECIFIED POSTPROCEDURAL STATES 02/18/2019 ELY WILLETT FACC, ALI FACP CCDS Ot I25.10 ATHSCL HEART DISEASE OF [place] CORONARY 02/18/2019 ELY WILLETT FACAruna, ALI FACP CCDS Ot I65.23 OCCLUSION AND STENOSIS OF [place]ATERAL [place] 02/18/2019 ELY WILLETT FACAruna, ALI FACP CCDS Ot M62.81 MUSCLE WEAKNESS (GENERALIZED) 02/21/2019 SOFI DUNN MD Ot 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 81 HELICOBACTER PYLORI THE CAUSE OF DISE 06/12/2019 ROSALINDA DOS SANTOS DO Ot D12. 2 BENIGN NEOPLASM OF ASCENDING COLON 06/12/2019 ROSALINDA DOS SANTOS DO Ot D12. 3 BENIGN NEOPLASM OF TRANSVERSE COLON 06/12/2019 ROSALINDA DOS SANTOS DO Ot E78. 5 HYPERLIPIDEMIA, UNSPECIFIED 06/12/2019 ROSALINDA DOS SANTOS DO Ot I10 ESSENTIAL (PRIMARY) HYPERTENSION 06/12/2019 ROSALINDA DOS SANTOS DO Ot I25.119 ATHSCL HEART DISEASE OF [place] COR ART W 06/12/2019 ROSALINDA DOS SANTOS DO Ot I95. 9 HYPOTENSION, UNSPECIFIED 06/12/2019 ROSALINDA DOS SANTOS DO Ot K21. 9 GASTRO-ESOPHAGEAL REFLUX DISEASE WITHOUT 06/12/2019 ROSALINDA DOS SANTOS DO Ot K29. 50 UNSPECIFIED CHRONIC GASTRITIS WITHOUT BL 06/12/2019 ROSALINDA DOS SANTOS DO Ot K44. 9 DIAPHRAGMATIC HERNIA WITHOUT OBSTRUCTION 06/12/2019 ROSALINDA DOS SANTOS DO Ot K57. 30 DVRTCLOS OF LG INT W/O PERFORATION OR AB 06/12/2019 ROSALINDA DOS SANTOS DO Ot K62. 5 HEMORRHAGE OF ANUS AND RECTUM 06/12/2019 ROSALINDA DOS SANTOS DO Ot K63. 5 POLYP OF COLON 06/12/2019 ROSALINDA DOS SANTOS DO Ot Z79. 02 CORRECTION (CURRENT) USE OF ANTITHROMBOTI 06/12/2019 ROSALINDA DOS SANTOS DO Ot Z79. 82 CORRECTION (CURRENT) USE OF ASPIRIN 06/12/2019 ROSALINDA DOS SANTOS DO Ot Z79.899 OTHER CORRECTION (CURRENT) DRUG THERAPY 06/12/2019 ROSALINDA DOS SANTOS DO Ot Z80. 9 FAMILY HISTORY OF MALIGNANT NEOPLASM, UN 06/12/2019 ROSALINDA DOS SANTOS DO Ot Z82. 49 FAMILY HX OF ISCHEM HEART DIS AND OTH DI 06/12/2019 ROSALINDA DOS SANTOS DO Ot Z83. 6 FAMILY HISTORY OF OTHER DISEASES OF THE 06/12/2019 ROSALINDA DOS SANTOS DO Ot Z87.891 PERSONAL HISTORY OF NICOTINE DEPENDENCE 06/12/2019 ROSALINDA DOS SANTOS DO Ot Z95. 1 PRESENCE OF AORTOCORONARY BYPASS GRAFT 06/23/2019 ROSALINDA DOS SANTOS DO Ot B96. 81 HELICOBACTER PYLORI THE CAUSE OF DISE 06/23/2019 ROSALINDA DOS SANTOS DO Ot D12. 2 BENIGN NEOPLASM OF ASCENDING COLON 06/23/2019 ROSALINDA DOS SANTOS DO Ot D12. 3 BENIGN NEOPLASM OF TRANSVERSE COLON 06/23/2019 ROSALINDA DOS SANTOS DO Ot E78. 5 HYPERLIPIDEMIA, UNSPECIFIED 06/23/2019 ROSALINDA DOS SANTOS DO Ot I10 ESSENTIAL (PRIMARY) HYPERTENSION 06/23/2019 ROSALINDA DOS SANTOS DO Ot I25.119 ATHSCL HEART DISEASE OF [place] COR ART W 06/23/2019 ROSALINDA DOS SANTOS DO Ot I95. 9 HYPOTENSION, UNSPECIFIED 06/23/2019 ROSALINDA DOS SANTOS DO Ot K21. 9 GASTRO-ESOPHAGEAL REFLUX DISEASE WITHOUT 06/23/2019 ROSALINDA DOS SANTOS DO Ot K29. 50 UNSPECIFIED CHRONIC GASTRITIS WITHOUT BL 06/23/2019 ROSALINDA DOS SANTOS DO Ot K44. 9 DIAPHRAGMATIC HERNIA WITHOUT OBSTRUCTION 06/23/2019 ROSALINDA DOS SANTOS DO Ot K57. 30 DVRTCLOS OF LG INT W/O PERFORATION OR AB 06/23/2019 ROSALINDA DOS SANTOS DO Ot K62. 5 HEMORRHAGE OF ANUS AND RECTUM 06/23/2019 ROSALINDA DOS SANTOS DO Ot K63. 5 POLYP OF COLON 06/23/2019 ROSALINDA DOS SANTOS DO Ot Z79. 02 BOTTLE CLEANER (CURRENT) USE OF ANTITHROMBOTI 06/23/2019 ROSALINDA DOS SANTOS DO Ot Z79. 82 CORRECTION (CURRENT) USE OF ASPIRIN 06/23/2019 ROSALINDA DOS SANTOS DO Ot Z79.899 OTHER CORRECTION (CURRENT) DRUG THERAPY 06/23/2019 ROSALINDA DOS SANTOS DO Ot Z80. 9 FAMILY HISTORY OF MALIGNANT NEOPLASM, UN 06/23/2019 ROSALINDA DOS SANTOS DO Ot Z82. 49 FAMILY HX OF ISCHEM HEART DIS AND OTH DI 06/23/2019 ROSALINDA DOS SANTOS DO Ot Z83. 6 FAMILY HISTORY OF OTHER DISEASES OF THE 06/23/2019 ROSALINDA DOS SANTOS DO Ot Z87.891 PERSONAL HISTORY OF NICOTINE DEPENDENCE 06/23/2019 ROSALINDA DOS SANTOS DO Ot Z95. 1 PRESENCE OF AORTOCORONARY BYPASS GRAFT 06/25/2019 ROSALINDA DOS SANTOS DO Ot B96. 81 HELICOBACTER PYLORI THE CAUSE OF DISE 06/25/2019 ROSALINDA DOS SANTOS DO Ot D12. 2 BENIGN NEOPLASM OF ASCENDING COLON 06/25/2019 ROSALINDA DOS SANTOS DO Ot D12. 3 BENIGN NEOPLASM OF TRANSVERSE COLON 06/25/2019 ROSALINDA DOS SANTOS DO Ot E78. 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 9 HYPOTENSION, UNSPECIFIED 06/25/2019 ROSALINDA DOS SANTOS DO Ot K21. 9 GASTRO-ESOPHAGEAL REFLUX DISEASE WITHOUT 06/25/2019 ROSALINDA DOS SANTOS DO Ot K29. 50 UNSPECIFIED CHRONIC GASTRITIS WITHOUT BL 06/25/2019 ROSALINDA DOS SANTOS DO Ot K44. 9 DIAPHRAGMATIC HERNIA WITHOUT OBSTRUCTION 06/25/2019 ROSALINDA DOS SANTOS DO Ot K57. 30 DVRTCLOS OF LG INT W/O PERFORATION OR AB 06/25/2019 ROSALINDA DOS SANTOS DO Ot K62. 5 HEMORRHAGE OF ANUS AND RECTUM 06/25/2019 ROSALINDA DOS SANTOS DO Ot K63. 5 POLYP OF COLON 06/25/2019 ROSALINDA DOS SANTOS DO Ot Z79. 02 CORRECTION (CURRENT) USE OF ANTITHROMBOTI 06/25/2019 ROSALINDA DOS SANTOS DO Ot Z79. 82 CORRECTION (CURRENT) USE OF ASPIRIN 06/25/2019 ROSALINDA DOS SANTOS DO, Ot Z79.899 OTHER CORRECTION (CURRENT) DRUG THERAPY 06/25/2019 ROSALINDA DOS SANTOS DO Ot Z80. 9 FAMILY HISTORY OF MALIGNANT NEOPLASM, UN 06/25/2019 ROSALINDA DOS SANTOS DO Ot Z82. 49 FAMILY HX OF ISCHEM HEART DIS AND OTH DI 06/25/2019 ROSALINDA DOS SANTOS DO, Ot Z83. 6 FAMILY HISTORY OF OTHER DISEASES OF THE 06/25/2019 ROSALINDA DOS SANTOS DO Ot Z87.891 PERSONAL HISTORY OF NICOTINE DEPENDENCE 06/25/2019 ROSALINDA DOS SANTOS DO Ot Z95. 1 PRESENCE OF AORTOCORONARY BYPASS GRAFT 09/30/2019 BABAK LENTZ APRN Ot N50.812 LEFT TESTICULAR PAIN 09/30/2019 BABAK LENTZ APRN Ot R10.2 PELVIC AND PERINEAL PAIN 10/07/2019 ROSALINDA DOS SANTOS DO Ot B96. 81 HELICOBACTER PYLORI THE CAUSE OF DISE 10/13/2019 ROSALINDA DOS SANTOS DO Ot R22. 2 LOCALIZED SWELLING, MASS AND LUMP, TRUNK 11/14/2019 W E78.2 Mixe d hyperlipidemia Vonnie Mathews S. 11/14/2019 W I10 Essent ial (primary) hypertension Vonnie Mathews S. 11/14/2019 W Z12.5 Enco unter for screening for malignant neoplasm of prostate Vonnie Mathews S. 12/24/2019 W G25.0 Esse ntial tremor Vonnie Mathews S. 12/24/2019 W G25.0 Esse ntial tremor Vonnie Mathews S. 12/29/2019 [place] ROSALINDA MACKENZIE Ot B96. 81 HELICOBACTER PYLORI THE CAUSE OF DISE 12/31/2019 DOS SANTOS DOROSALINDA Ot B96. 81 HELICOBACTER PYLORI THE CAUSE OF DISE [facility] ENCNTR FOR F/U EXAM AFT TRTMT FOR COND O Procedures There is no data. Results Test Result Range Automated blood complete blood count (he mogram) panel - 08/28/17 07:10 Blood leukocytes automated count (number/volume) 5.8 10*3/uL 4.3-11.0 Blood erythrocytes automated count (number/volume) 4.53 10*6/uL 4.35-5.85 Venous blood hemoglobin measurement (mass/volume) 13.7 g/dL 13.3-17.7 Blood hematocrit (volume fraction) 40 % 40-54 Automated erythrocyte mean corpuscular volume 89 [ foz_us] 80-99 Automated erythrocyte mean corpuscular h emoglobin (mass per erythrocyte) 30 pg 25-34 Automated erythrocyte mean corpuscular h emoglobin concentration measurement (mass/volume) 34 g/dL 32-36 Automated erythrocyte distribution width ratio 12. 4 % 10.0- 14.5 Automated blood platelet count (count/volume) 214 10*3/uL 130-400 Automated blood platelet mean volume measurement 9.7 [foz_us] 7.4-10.4 PT panel in platelet poor plasma by coag ulation assay - 08/28/17 07:10 Prothrombin time (PT) in platelet poor plasma by coagu lation assay 12.7 s 12.2-14.7 INR in platelet poor plasma or blood by coagulation as say 0.9 0.8-1.4 Activated partial thromboplastin time (a PTT) in platelet poor plasma bycoagulation assay - 08/28/17 07:10 Activated partial thromboplastin time (a PTT) in platelet poor plasma bycoagulation assay 24 s 24-35 Comprehensive metabolic panel - 08/28/17 07:10 Serum or plasma sodium measurement (moles/volume) 138 mmol/L 135-145 Serum or plasma potassium measurement (moles/volume) 3.6 mmol/L 3.6-5.0 Serum or plasma chloride measurement (moles/volume) 101 mmol/L 98-107 Carbon dioxide 25 mmol/L 21-32 Serum or plasma anion gap determination (moles/volume) 12 mmol/L 5-14 Serum or plasma urea nitrogen measurement (mass/volume ) 17 mg/dL 7-18 Serum or plasma creatinine measurement (mass/volume) 0.98 mg/dL 0.60-1.30 Serum or plasma urea nitrogen/creatinine mass ratio 17 NRG Serum or plasma creatinine measurement w ith calculation of estimated glomerular filtration rate > NRG Serum or plasma glucose measurement (mass/volume) 76 mg/dL 70-105 Serum or plasma calcium measurement (mass/volume) 8.8 mg/dL 8.5-10.1 Serum or plasma total bilirubin measurement (mass/volu me) 1.1 mg/dL 0.1-1.0 Serum or plasma alkaline phosphatase raeann surement (enzymatic activity/volume) 60 U/L 40-136 Serum or plasma aspartate aminotransfera se measurement (enzymatic activity/volume) 24 U/L 5-34 Serum [...] Serum or plasma cholesterol in HDL measurement (mass/v olume) 57 mg/dL 40-60 Cholesterol in LDL [mass/volume] in serum or plasma by direct assay 95 mg/dL 1-129 Serum or plasma cholesterol in VLDL measurement (mass/ volume) 17 mg/dL 5-40 Methicillin resistant Staphylococcus aur eus (MRSA) screening culture - 08/28/17 07:10 Methicillin resistant Staphylococcus aureus (MRSA) scr eening culture NEG NRG Complete urinalysis with reflex to cultu re - 01/19/18 17:55 Urine color determination YELLOW NRG Urine clarity determination CLEAR NR G Urine pH measurement by test strip 5 5-9 Specific gravity of urine by test strip 1.020 1.016-1.022 Urine protein assay by test strip, semi-quantitative NEGATIVE NEGATIVE Urine glucose detection by automated test strip NE GATIVE NEGATIVE Erythrocytes detection in urine sediment by light micr oscopy 2+ NEGATIVE Urine ketones detection by automated test strip NE GATIVE NEGATIVE Urine nitrite detection by test strip NEGATIVE NEGATIVE Urine total bilirubin detection by test strip NEGA TIVE NEGATIVE Urine urobilinogen measurement by automated test strip (mass/volume) NORMAL NORMAL Urine leukocyte esterase detection by dipstick NEG ATIVE NEGATIVE Automated urine sediment erythrocyte cou nt by microscopy (number/high power field) [HPF] NRG Automated urine sediment leukocyte count by microscopy (number/high power field) NONE NRG Bacteria detection in urine sediment by light microsco py NEGATIVE NRG Squamous epithelial cells detection in u rine sediment by light microscopy 0-2 NRG Crystals detection in urine sediment by light microsco py NONE NRG Casts detection in urine sediment by light microscopy NONE NRG Mucus detection in urine sediment by light microscopy NEGATIVE NRG Complete urinalysis with reflex to culture NO NRG Complete blood count (CBC) with automate d white blood cell (WBC) differential - 01/19/18 18:25 Blood leukocytes automated count (number/volume) 6.1 10*3/uL 4.3-11.0 Blood erythrocytes automated count (number/volume) 4.42 10*6/uL 4.35-5.85 Venous blood hemoglobin measurement (mass/volume) 13.3 g/dL 13.3-17.7 Blood hematocrit (volume fraction) 39 % 40-54 Automated erythrocyte mean corpuscular volume 88 [ foz_us] 80-99 Automated erythrocyte mean corpuscular h emoglobin (mass per erythrocyte) 30 pg 25-34 Automated erythrocyte mean corpuscular h emoglobin concentration measurement (mass/volume) 34 g/dL 32-36 Automated erythrocyte distribution width ratio 12. 6 % 10.0- 14.5 Automated blood platelet count [...] 10*3 1.0-4.0 Blood monocytes automated count (number/volume) 0. 7 10*3 0.0-1.0 Automated eosinophil count 0.1 10*3/uL 0 .0-0.3 Automated blood basophil count (count/volume) 0.0 10*3/uL 0.0-0.1 Comprehensive metabolic panel - 01/19/18 18:25 Serum or plasma sodium measurement (moles/volume) 140 mmol/L 135-145 Serum or plasma potassium measurement (moles/volume) 4.4 mmol/L 3.6-5.0 Serum or plasma chloride measurement (moles/volume) 104 mmol/L 98-107 Carbon dioxide 28 mmol/L 21-32 Serum or plasma anion gap determination (moles/volume) 8 mmol/L 5-14 Serum or plasma urea nitrogen measurement (mass/volume ) 9 mg/dL 7-18 Serum or plasma creatinine measurement (mass/volume) 1.09 mg/dL 0.60-1.30 Serum or plasma urea nitrogen/creatinine mass ratio 8 NRG Serum or plasma creatinine measurement w ith calculation of estimated glomerular filtration rate > NRG Serum or plasma glucose measurement (mass/volume) 99 mg/dL 70-105 Serum or plasma calcium measurement (mass/volume) 9.3 mg/dL 8.5-10.1 Serum or plasma total bilirubin measurement (mass/volu me) 0.8 mg/dL 0.1-1.0 Serum or plasma alkaline phosphatase raeann surement (enzymatic activity/volume) 61 U/L 40-136 Serum or plasma aspartate aminotransfera se measurement (enzymatic activity/volume) 18 U/L 5-34 Serum or plasma alanine aminotransferase measurement (enzymatic activity/volume) 10 U/L 0-55 Serum or plasma protein measurement (mass/volume) 7.0 g/dL 6.4-8.2 Serum or plasma albumin measurement (mass/volume) 4.2 g/dL 3.2-4.5 Serum or plasma amylase measurement (enz ymatic activity/volume) - 01/19/18 18:25 Serum or plasma amylase measurement (enzymatic activit y/volume) 56 U/L 25-125 Lipase - 01/19/18 18:25 Lipase 23 U/L 8-78 Methicillin resistant Staphylococcus aur eus (MRSA) screening culture - 01/30/18 11:50 Methicillin resistant Staphylococcus aureus (MRSA) scr eening culture NEG NRG Stool Helicobacter pylori antigen detect ion - 09/30/19 09:00 H PYLORI ANTIGEN PT Negative Negative Encounters ACCT No. Visit Date/Time Discharge Status Pt. Type Provider Facility Loc./Unit Complaint 11/201709/25/2019 14:26:53 09/25/2019 23:59: 59 CLS Outpatient Vonnie Mathews 958 09/30/2019 10:26:00 Document Registration [id number] 09/30/2019 10:24:00 00:01:00 DIS Outpatient ROSALINDA DOS SANTOS DO [facility] LAB H PHLORI [id number] 10/08/2019 12:17:00 23:59:59 CLS Outpatient DOS SANTOS ROSALINDA MACKENZIE [facility] RAD PERINEAL RT SIDE MASS [id number] 06/12/2019 11:40:00 14:00:00 DIS Outpatient DOS SANTOS ROSALINDA MACKENZIE [facility] ENDO RECTAL BLEEDING/GERD [id number] 06/11/2019 05:39:00 10:22:00 DIS Outpatient DOS SANTOS ROSALINDA MACKENZIE [facility] PREOP COLONOSCOPY/EGD [id number] 02/20/2019 11:32:00 23:59:59 CLS Outpatient VONNIE MATHEWS DO [facility] RAD CEPHALGIA, RIGH T SIDED WEAKNESS [id number] 02/18/2019 09:00:00 23:59:59 CLS Preadmit MONA WILLETT, SOFI arenas [facility] SDC LEFT RENAL STONE [id number] 02/12/2019 14:26:00 23:59:59 CLS Outpatient ELY WILLETT FACC, POORNIMA MORGAN CC DS [facility] RAD WEAKNESS OF RIGHT FOOT,CAD,PALPITATIONS [id number] 02/09/2019 15:46:00 18:04:00 DIS Emergency NICOLÁS LACY MD [facility] ER R FOOT/LEG NUMB NESS [id number] 02/04/2019 07:06:00 09:19:00 DIS Outpatient ELY WILLETT FACC, POORNIMA MORGAN CC DS [facility] CATH LOOP RECORD ER BATTERY AT END OF LIFE,PALPITATIONS [id number] 2019 07:56:00 23:59:59 CLS Outpatient SOFI DUNN MD [facility] RAD H/O STONE [id number] 05/15/2018 11:32:00 23:59:59 CLS Outpatient BABAK LENTZ APRN [facility] RAD PELVIC PAIN, RU LE OUT TESTICULAR TORSION [id number] 02/26/2018 09:45:00 23:59:59 CLS Preadmit SOFI DUNN MD, V ia [facility] LEFT RENAL STONE [id number] 02/25/2018 14:04:00 23:59:59 CLS Outpatient SOFI DUNN MD [facility] RAD RENAL STONE [id number] 02/25/2018 09:29:00 23:59:59 CLS Outpatient SOFI DUNN MD [facility] PREOP LEFT RENAL STONE [id number] 02/05/2018 07:39:00 12:15:00 DIS Outpatient SOFI DUNN MD [facility] LEFT RENAL STONE [id number] 01/30/2018 05:40:00 12:09:00 DIS Outpatient SOFI DUNN MD [facility] PREOP LEFT RENAL STONE [id number] 01/21/2018 11:25:00 23:59:59 CLS Outpatient SOFI DUNN MD [facility] RAD XRAY KUB [id number] 01/19/2018 17:26:00 20:25:00 DIS Emergency JUAN IRWIN DO Angela spence [facility] ER R SIDE BACK/ABD PAIN [id number] 09/11/2017 09:36:00 23:59:59 CLS Outpatient ANTOINERAHEEMMAXI JOELLE MACKENZIEVONNIE S [facility] RAD DYSPNEA [id number] 09/05/2017 09:38:00 23:59:59 CLS Outpatient SONU MATHEWS DOLINE S [facility] RT COPD [id number] 08/28/2017 06:46:00 14:00:00 DIS Outpatient ELY WILLETT FACC, POORNIMA MORGAN CC DS [facility] CATH CAD,ANGINA, SOB,FATIGUE [id number] 08/21/2017 14:09:00 23:59:59 CLS Outpatient JOELLE MATHEWS DOQUELINE S [facility] RAD R07.89, R06.0 [id number] 08/10/2016 18:44:00 22:38:00 DIS Emergency ALEXIS DEAN [facility] ER ALLERGIC REACTION [id number] 06/20/2016 11:27:00 18:00:00 DIS Outpatient ROSALINDA DOS SANTOS DO [facility] SDC SCREENING [id number] 06/19/2016 14:00:00 16:19:00 DIS Outpatient ROSALINDA DOS SANTOS DO [facility] PREOP SCREENING [id number] 05/21/2016 19:09:00 21:49:00 DIS Emergency ALEXIS DEAN [facility] ER RIGHT HAND DOG BITE [id number] 10/19/2015 09:48:00 23:59:59 CLS Outpatient ELY WILLETT FACC, POORNIMA MORGAN CC DS [facility] CATH PALPITATION S,LIGHT HEADED NESS, SOB [id number] 06/01/2015 11:41:00 015 18:45:00 DIS Outpatient POORNIMA GRAVES MD, FACC, FACP CC DS [facility] CATH CORONARY AR NELA DISEASE CP HLD [id number] 02/10/2020 10:00:00 P EN Preadmit POORNIMA GRAVES MD, FACC, FACP CCDS [facility] ANGINA
[2020-02-10 08:52] LABS: MEAN PLATELET VOLUME 9.5 FL (7.4-10.4); RED CELL DISTRIBUTION WIDTH 13.1 % (10.0-14.5); WHITE BLOOD COUNT 7.6 10^3/uL (4.3-11.0)
[2020-02-10 09:08] LABS: PROTHROMBIN TIME PATIENT 13.7 SEC (12.2-14.7)
[2020-02-10 09:19] LABS: ALANINE AMINOTRANSFERASE 10 U/L (0-55); ALBUMIN 4.1 GM/DL (3.2-4.5); ALKALINE PHOSPHATASE 78 U/L (40-136); BILIRUBIN,TOTAL 0.7 MG/DL (0.1-1.0); BUN/CREATININE RATIO 10; CALCIUM 8.8 MG/DL (8.5-10.1); CARBON DIOXIDE 27 MMOL/L (21-32); CHLORIDE 103 MMOL/L (98-107); CHOLESTEROL 168 MG/DL (< 200); CREATININE SERUM 1.08 MG/DL (0.60-1.30); GFR ESTIMATED > 60; GLUCOSE 80 MG/DL (70-105); HDL CHOLESTEROL 67 MG/DL (40-60); POTASSIUM 4.2 MMOL/L (3.6-5.0); SODIUM 139 MMOL/L (135-145); TOTAL PROTEIN 7.2 GM/DL (6.4-8.2); TRIGLYCERIDES 104 MG/DL (<150); VLDL CHOLESTEROL 21 MG/DL (5-40)
[2020-02-10] MEDS ORDERED: MIDAZOLAM 5 MG/5 ML (VERSED) VIAL ONE (09:34)
[2020-02-10] MEDS ORDERED: fentaNYL INJECTION 100 MCG/2 ML AMP ONE (09:34)
--- NOTE | 2020-02-10 10:42 | Cardiac Procedure Note-CS/ASA ---
Pre-Procedure Note Pre-Op Procedure Note H&P Reviewed The H&P was reviewed, patient examined and no changes noted. Date H&P Reviewed: February 10, 2020 Time H&P Reviewed: 09:30 Conscious Sedation Pre-Proced Time 09:30 ASA Score 3 For ASA 3 and 4: Consider anesthesia and medical clearance. Also, for patients with a history of failed moderate sedation consider anesthesia. Airway Lungs Heart ASA score ASA 1: a normal healthy patient ASA 2: a patient with a mild systemic disease (mid diabetes, controlled hypertension, obesity ASA 3: a patient with a severe systemic disease that limits activity (angina, COPD, prior Myocardial infarction) ASA 4: a patient with an incapacitating disease that is a constant threat to life (CHF, renal failure) ASA 5: a moribund patient not expected to survive 24 hrs. (ruptured aneurysm) ASA 6: a declared brain- patient whose organs are being harvested. For emergent operations, add the letter E after the classification Mallampati Classification Grade 2 Sedation Plan Analgesia, Amnesia, Plan communicated to team members, Discussed options with patient/fam, Discussed risks with patient/fam The patient is an appropriate candidate to undergo the planned procedure, sedation, and anesthesia. The patient immediately re-assessed prior to indication. POORNIMA GRAVES MD FACP FAC CCDS February 10, 2020 10:42
[2020-02-10] MEDS ORDERED: PATIENT MAY USE OWN MEDS, ALL PO SCH (10:45)
--- NOTE | 2020-02-10 10:45 | Discharge Inst-Cardiology ---
Discharge Inst-Cardiac Discharge Medications Continued Medications: Albuterol Sulfate (Proair Hfa) 1 Puff Puff 2 PUFF IH Q4H PRN for SHORTNESS OF BREATH Aspirin (Aspir 81) 81 Mg Tablet.dr 81 MG PO DAILY, TAB Clonazepam (Clonazepam) 1 Mg Tablet 1 MG PO DAILY, TAB Metoprolol Tartrate (Metoprolol Tartrate) 25 Mg Tablet 12.5 MG PO BID take 1/2 of 25mg tab Montelukast Sodium (Montelukast Sodium) 10 Mg Tablet 10 MG PO HS Pravastatin Sodium (Pravastatin Sodium) 20 Mg Tablet 20 MG PO DAILY, TAB Pregabalin (Lyrica) 75 Mg Capsule 75 MG PO HS Primidone (Mysoline) 50 Mg Tablet 50 MG PO BID, TAB POORNIMA GRAVES MD FACP FACC CCDS February 10, 2020 10:45
--- NOTE | 2020-02-10 10:46 | Discharge Inst-Post CATH ---
Discharge Inst-CATH/EP Post Cardiac Cath/EP D/C Inst Follow Up/Plan F/u with Dr Ramsey in 2 weeks ACTIVITY * Go Home directly and rest. * Limit activity of the leg (or wrist if it was used) for 7 days including aerobics, swimming, jogging, bicycling, etc. * Restrict stair-climbing for 7 days if possible, if not, climb up with your n on-cath leg, then bring together on the same step. * Avoid lifting, pushing, pulling or excessive movement of the affected ex tremity for 7 days. * Customary sexual activity may be resumed after 2 days-use caution not to use a position that strains or causes pain to the affected extremity. * No driving for 24 hours. * NO SMOKING. * Avoid straining for bowel movements for 7 days. * Gentle walking on level ground is allowed. * Returning to work will depend on the type of procedure and the results. Your doctor will discuss this with you. CALL YOUR DOCTOR FOR ANY OF THE FOLLOWING: *If bleeding from the puncture site occurs- Apply gentle pressure to site with clean cloth and call your doctor or EMS. * If a knot or lump forms under the skin, increases in size, or causes pain. * If bruising appears to be worsening or moving further down your leg instead of disappearing. * Temperature above 101 F. CARE OF YOUR GROIN INCISION; * Bruising or purple discoloration of the skin near the puncture site is common. * You may shower only, no bathtub bathing for 5 days. Be careful to avoid slipping as your leg may feel stiff. * If a closure device was used on your femoral artery, please see the attached guide regarding care of the device and your leg. * Leave dressing on FOR 24 hours. CARE OF YOUR WRIST INCISION; * Bruising or purple discoloration of the skin near the puncture site is common. * You may shower. * DO NOT submerge wrist. * Leave dressing on FOR 24 hours. POORNIMA RAMSEY MD FACP FAC CCDS February 10, 2020 10:46
--- NOTE | 2020-02-10 12:22 | CARDIAC CATHETERIZATION ---
DATE OF SERVICE: 02/10/2020 CARDIAC CATHETERIZATION REPORT The patient is a 70-year-old man who is known to have coronary artery disease and has previously had stenting of the left anterior descending. He has had intermittent chest discomfort and has taken nitroglycerin for relief on a few occasions. Repeat cardiac catheterization was carried out today after having obtained an informed consent. DESCRIPTION OF PROCEDURE: He was brought to the cardiac catheterization laboratory in a fasting state. Right groin was prepared and draped in the usual sterile fashion. Lidocaine 1% was used for local anesthesia. Modified Seldinger technique was used to advance a 5-Argentine sheath in right femoral artery, 5-Argentine JL4 catheter was used for left coronary angiography, 5-Argentine JR4 catheter for right coronary angiography, 5-Argentine pigtail catheter was used for left heart catheterization and left ventricular angiography. At the end of the procedure, angiography of the right femoral artery was carried out through the sheath and Mynx was used to achieve hemostasis. He tolerated the procedure well. HEMODYNAMICS: Left ventricular end-diastolic pressure following coronary angiography was 17 mmHg. There is no significant pressure gradient on pullback across the aortic valve. Ascending aortic pressure was 100/62 with a mean of 76 mmHg. CORONARY ANGIOGRAPHY: Left main coronary artery is free of significant disease. Left anterior descending artery has a long-stented segment that involves the proximal and mid left anterior descending and the stented segment does not exhibit any significant in-stent restenosis. A ramus intermedius artery has approximately 40% proximal stenosis. The left circumflex artery is small and nondominant and does not exhibit significant disease. Right coronary artery is dominant and has 20% to 30% proximal stenosis. LEFT VENTRICULAR ANGIOGRAPHY: Left ventricular angiography was carried out in the right anterior oblique projection. Global left ventricular systolic function is normal. No regional wall motion abnormality was seen. Left ventricular ejection fraction is approximately 60%. CONCLUSIONS: 1. Mild coronary artery disease. 2. Patent, long, stented segment of the left anterior descending (proximal and mid segments). 3. Elevated left ventricular end-diastolic pressure. 4. Normal global left ventricular systolic function with ejection fraction approximately 60%. DISCUSSION AND RECOMMENDATIONS: Based on results of the study, it appears appropriate to continue a conservative approach. Risk factor modification has been reviewed. Current regimen is being continued. Outpatient followup is advised. Job ID: [id number] DocumentID: [id number] Dictated Date: 02/10/2020 10:54:07 Adhesive Bandage Machine Operator Date: 02/10/2020 12:22:00 Dictated By: POORNIMA GRAVES MD, MA, FACP, FACC, MTDD
--- NOTE | 2020-02-10 14:03 | NUR ---
THIS RN REPORTED TO PATIENT ROOM TO GET PATIENT UP TO AMBULATE, AT THIS TIME THE PATIENT'S LEGS ARE WEAK TRYING TO GET OUT OF BED. THIS RN HAD PATIENT SIT ON SIDE OF BED FOR 15 MINUTES AND TRIED TO GET PATIENT UP TO AMBULATE. PATIENT'S LEGS BILATERAL ARE BUCKLING. AND PATIENT REPORT THIS IS NOT NORMAL PATIENT HAS HAD MULTIPLE HEART CATHS. THIS RN SAT PATIENT DOWN AND HE SHOWED WEAKNESS IS TRYING TO LIFT UP LEGS. PATIENT REPORTS NUMBNESS INSIDE RIGHT LEG AND AT KNEE STATES GOES AROUND WHOLE LEG. THIS RN PHONE DR. GRAVES AT 1403 AND INFORMED HIM OF ABOVE AND THAT VSS AND PULSES +1 WITH NO PAIN OR HEMATOMA'S. DR. GRAVES GAVE ORDER TO HAVE STRUCTURES TECHNICIAN COME CHECK ON PATIENT AND TO ADMIT TO CARDIAC STEPDOWN OVERNIGHT FOR OBSERVATION AND TO RESTART HOME MEDICATIONS. THIS RN PHONED HERIBERTO [place] AND HE ARRIVED AT [facility] WITHIN 10 MINUTES. [place] ASSESSED PATIENT AND INFORMED NO HEMATOMA'S FELT OR PAIN REPORTED AND THAT HE WOULD PHONE DR. GRAVES. THIS RN PHONED HERIBERTO [facility] AND INFORMED WOULD NEED BED FOR PATIENT. JOO PHONED BACK AND INFORMED PATIENT TO GO TO ICU ROOM 12. KATE OLMSTEAD STOPPED BY [facility] AND ASSESSED PATIENT AND REPORTED THAT SHE WOULD PUT ORDERS IN. THIS RN LEFT [facility] WITH PATIENT AT 1450 AND ARRIVED AT ICU 12 AT 1500 AND GAVE BEDSIDE REPORT TO HERIBERTO BOWSER.
[2020-02-10] MEDS ORDERED: ACETAMINOPHEN 500 MG TAB (TYLENOL) PO PRN (14:45)
[2020-02-10] MEDS ORDERED: RT-ALBUTEROL SULF 2.5 MG/3 ML PRE-MIX VIAL IH PRN ×2 (14:45→18:45)
--- NOTE | 2020-02-10 15:10 | NUR ---
RECEIVED PATIENT AT THIS TIME, BEDSIDE REPORT RECEIVED FROM JARED GONZALES RN. PATIENT ASSESSED, ORIENTED TO ROOM. PATIENT HOOKED UP TO PORTABLE TELE MONITOR ET VITAL SIGN MACHINE. THIS NURSE ET SUNDAY [place] CHECKED PATIENT SITE ET PULSES. THIS NURSE TO ASSUME CARE OF PATIENT.
[2020-02-10] MEDS: meTOprolol TARTRATE 25 MG (LOPRESSOR) TABLET PO SCH (20:42)
[2020-02-10] MEDS: PRIMIDONE 50 MG TAB (MYSOLINE) PO SCH (20:44)
[2020-02-10] MEDS ORDERED: PRIMIDONE 50 MG TAB (MYSOLINE) PO SCH (21:00)
[2020-02-10] MEDS ORDERED: PREGABALIN 75 MG (LYRICA) CAP PO SCH (21:00)
[2020-02-10] MEDS ORDERED: MONTELUKAST 10 MG (SINGULAIR) TAB PO SCH (21:00)
--- NOTE | 2020-02-10 21:26 | NUR ---
PATIENT AMBULATED IN [place] WITH ASSIST X2 AND GAIT BELT.
[2020-02-11] VITALS: BP 125/72
[2020-02-11 04:00] VITALS: BP 120/71
--- NOTE | 2020-02-11 08:09 | Progress Note - Cardiology ---
Cardiology SOAP Progress Note Objective: I&O/Vital Signs 02/11/20 02/11/20 02/11/20 00:00 01:00 04:00 Temp 36.3 36.5 Pulse 67 57 60 Resp 16 16 B/P (MAP) 125/72 (89) 120/71 (87) Pulse Ox 98 96 O2 Delivery Room Air Room Air 02/11/20 00:00 Intake Total 1200 ml Output Total 525 ml Balance 675 ml Weight (Pounds): 136 Weight (Ounces): 0.0 Weight (Calculated Kilograms): 61.385306 Results/Procedures: Labs Laboratory Tests 02/10/20 08:39: White Blood Count 7.6, Red Blood Count 4.25L, Hemoglobin 13.0L, Hematocrit 39L, Mean Corpuscular Volume 91, Mean Corpuscular Hemoglobin 31, Mean Corpuscular Hemoglobin Concent 34, Red Cell Distribution Width 13.1, Platelet Count 198, Mean Platelet Volume 9.5, Prothrombin Time 13.7, INR Comment 1.0, Activated Partial Thromboplast Time 26, Sodium Level 139, Potassium Level 4.2, Chloride Level 103, Carbon Dioxide Level 27, Anion Gap 9, Blood Urea Nitrogen 11, Creatinine 1.08, Estimat Glomerular Filtration Rate > 60, BUN/Creatinine Ratio 10, Glucose Level 80, Calcium Level 8.8, Corrected Calcium 8.7, Total Bilirubin 0.7, Aspartate Amino Transf (AST/SGOT) 18, Alanine Aminotransferase (ALT/SGPT) 10, Alkaline Phosphatase 78, Total Protein 7.2, Albumin 4.1, Triglycerides Level 104, Cholesterol Level 168, LDL Cholesterol Direct 91, VLDL Cholesterol 21, HDL Cholesterol 67H Microbiology 02/10/20 MRSA Screen - Final, Complete MRSA not isolated Procedures Cardiac cath on 02-10-2020, please refer to cardiac cath report for details A/P: Assessment: CAD - Mild coronary artery disease. Patent long stented segment of the left anterior descending (proximal and mid segments). Elevated left ventricular end- diastolic pressure. Normal global left ventricular systolic function with ejection fraction approximately 60%. Per cardiac cath of 02-10-2020 He reports he has had several stents placed at [facility] and [facility] in [place] - exact details unknown Palpitations, none recently. S/p ILR, implanted 10/19/15. That has shown NSR and most recent interrogation (January 2019) showed frequent PACs. ILR reached EOL and was removed in January 2019 Gen fatigue of undetermined etiology - improved following cessation of BB therapy CAD. Pulm CT angio of 09/11/17 (Dr Mathews): no PE or acute abnormalities Relative hypotension - improved following cessation of BB therapy Chronic somewhat low blood pressure H/o hyperlipidemia. States he has previously been on simvastatin, but not currently (apparently stopped because of muscle pains) Chronic essential tremor, by history Carotid u/s of January 2019 minimal plaque w/o evidence of hemodynamic significance Screening scan of abd ao on 09/04/17: no AAA H/o tobacco use, quit in the 1970s TSH of February 2017 WNL 1.173 PFT's of 09-05-17 showed spirometry is WNL and lung volumes WNL. Mild decrease in diffusing capacity. [facility] [place] February 11, 2020 08:09
[2020-02-11] MEDS ORDERED: clonazePAM 1 MG (KlonoPIN) TAB PO SCH (09:00)
[2020-02-11] MEDS ORDERED: ASPIRIN E.C. 81 MG (ECOTRIN) TAB PO SCH (09:00)
[2020-02-11] MEDS ORDERED: PRAVASTATIN 20 MG (PRAVACHOL) TAB NON-FORMULARY PO SCH (09:00)
[2020-02-11] MEDS: meTOprolol TARTRATE 25 MG (LOPRESSOR) TABLET PO SCH (09:22)
[2020-02-11] MEDS: PRIMIDONE 50 MG TAB (MYSOLINE) PO SCH (09:24)
--- NOTE | 2020-02-11 09:43 | Progress Note - Cardiology ---
Cardiology SOAP Progress Note Subjective: Leg numbness is much improved Does not report leg weakness Denies cp or palp of syncope or shortness of breath or groin or leg discomfort No n/v/d Wishes to go home Objective: I&O/Vital Signs 02/11/20 02/11/20 02/11/20 02/11/20 00:00 01:00 04:00 07:00 Temp 36.3 36.5 Pulse 67 57 60 69 Resp 16 16 B/P (MAP) 125/72 (89) 120/71 (87) Pulse Ox 98 96 O2 Delivery Room Air Room Air 02/10/20 23:59 Intake Total 1200 ml Output Total 525 ml Balance 675 ml Weight (Pounds): 136 Weight (Ounces): 0.0 Weight (Calculated Kilograms): 61.516141 Condition: DP/PT pulses palpable Device Insertion Site: without hematoma Constitutional: AAO x 3, well-developed, well-nourished Respiratory: No accessory muscle use; other (good bilat air entry) Cardiovascular: regular rate-rhythm, S1 and S2, systolic murmur (soft MAKAYLA at card base) Gastrointestional: No tender; soft; No guarding, No rebound; audible bowel sounds Extremities: No clubbing, No cyanosis, No significant edema Neurologic/Psychiatric: alert, oriented x 3, other (moves all limbs equally, power 5/5 on both sides (including R leg); perceives touch equally on both sides (including R leg)) Results/Procedures: Labs Microbiology 02/10/20 MRSA Screen - Final, Complete MRSA not isolated A/P: Assessment: CAD H/o cor stents at [facility], detail not known - Last card cath on 02/10/20: Mild coronary artery disease. Patent long stented segment of the left anterior descending (proximal and mid segments). Elevated left ventricular end- diastolic pressure. Normal global left ventricular systolic function with ejection fraction approximately 60%. Transient leg numbness post cath, now resolved nearly completely Palpitations, none recently. S/p ILR, implanted 10/19/15. That has shown NSR and most recent interrogation (January 2019) showed frequent PACs. ILR reached EOL and was removed in January 2019 Gen fatigue of undetermined etiology - improved following cessation of BB therapy Pulm CT angio of 09/11/17 (Dr Mathews): no PE or acute abnormalities Relative hypotension - improved following cessation of BB therapy H/o hyperlipidemia. States he has previously been on simvastatin, but not currently (apparently stopped because of muscle pains) Chronic essential tremor, by history Carotid u/s of January 2019 minimal plaque w/o evidence of hemodynamic significance Screening scan of abd ao on 09/04/17: no AAA H/o tobacco use, quit in the 1970s TSH of February 2017 WNL 1.173 PFT's of 09-05-17 showed spirometry is WNL and lung volumes WNL. Mild decrease in diffusing capacity. Plan: * He is clinically stable, exhibiting no significant symptoms, and wishes to go home * Close clinical f/u is advised * I have discussed with him and his spouse the findings of card cath and treatment plan POORNIMA GRAVES MD FACP FAC [facility] February 11, 2020 09:43
--- NOTE | 2020-02-11 09:44 | Cardiology Discharge Summary ---
Diagnosis/Chief Complaint Date of Admission 02/10/20 Date of Discharge 02/10/20 Final/Discharge Diagnosis CAD H/o cor stents at [facility], detail not known - Last card cath on 02/10/20: Mild coronary artery disease. Patent long stented segment of the left anterior descending (proximal and mid segments). Elevated left ventricular end- diastolic pressure. Normal global left ventricular systolic function with ejec tion fraction approximately 60%. Transient leg numbness post cath, now resolved nearly completely Palpitations, none recently. S/p ILR, implanted 10/19/15. That has shown NSR and most recent interrogation (January 2019) showed frequent PACs. ILR reached EOL and was removed in January 2019 Gen fatigue of undetermined etiology - improved following cessation of BB therapy Pulm CT angio of 09/11/17 (Dr Mathews): no PE or acute abnormalities Relative hypotension - improved following cessation of BB therapy H/o hyperlipidemia. States he has previously been on simvastatin, but not currently (apparently stopped because of muscle pains) Chronic essential tremor, by history Carotid u/s of January 2019 minimal plaque w/o evidence of hemodynamic significance Screening scan of abd ao on 09/04/17: no AAA H/o tobacco use, quit in the 1970s TSH of February 2017 WNL 1.173 PFT's of 09-05-17 showed spirometry is WNL and lung volumes WNL. Mild decrease in diffusing capacity. Chief Complaint/HPI Chief Complaint/HPI Please see our progress note of the same date for condition at discharge Discharge Summary Discussion & Recommendations Home Medications Reviewed patient Home Medication Reconciliation performed by pharmacy medication reconciliations control systems technician and/or nursing. Patients Allergies have been reviewed. Discharge Home Medications: Reviewed and agree with Discharge Medication list on patient's Discharge Instruction sheet Instructions to patient/family F/u with Dr Ramsey in 2 weeks POORNIMA RAMSEY MD [facility] February 11, 2020 09:44
[2020-02-11 12:00] VITALS: BP 123/74
--- NOTE | 2020-02-11 14:19 | NUR ---
Entire discharge packet discussed with patient. Patient educated about incision care, his medications and signs and symptoms to watch for and/or report. Patients at bedside. after going over the discharge packet with patient and his they each state that they do not have any further questions att. This nurse took patient to front entrance via wheel chair, patients pulled their private vehicle to entrance and patient got into their vehicle. Patient has all of his belongings. Patient given his home medications back to him.
== END 2020-02-11 14:19 | disposition home or self-care (01) ==
LOC: CATH 07:53 → ICU 14:52 → CATH 02-11 14:19
PROVIDERS: ATTEND Internal Medicine Cardiovascular Disease
DX: I25.119 Atherosclerotic heart disease of native coronary artery with unspecified angina pectoris (principal); I95.9 Hypotension, unspecified; I77.9 Disorder of arteries and arterioles, unspecified; I65.29 Occlusion and stenosis of unspecified carotid artery; J34.9 Unspecified disorder of nose and nasal sinuses; R25.1 Tremor, unspecified; E78.5 Hyperlipidemia, unspecified; Z79.82 Long term (current) use of aspirin; Z79.899 Other long term (current) drug therapy; Z87.891 Personal history of nicotine dependence; Z95.828 Presence of other vascular implants and grafts; Z80.9 Family history of malignant neoplasm, unspecified
CPT/HCPCS: 36415; 80053; 80061; 85027; 85610; 85730; 87081; 93458; 94760

== ENCOUNTER → 2020-09-21 | Outpatient (CLI) | payer MEDICARE ==
[~2020-09-21] MED LIST changes: +ASPI-1238 PO; -ASPI-983 PO; -HEParin (CATH LAB) 2,000 ML IV ONE; -LIDOCAINE 1% INJ 20 ML 20 ML VIAL ONE; -MONT10TA26 PO; +MONT10TA97 PO
--- NOTE | 2020-09-21 13:05 | Diagnostic Imaging Report ---
INDICATION: Right shoulder pain. AP, oblique, and transscapular views of the right shoulder obtained. No fracture or dislocation is seen. Glenohumeral joint is unremarkable. There is mild degenerative change of the AC joint. IMPRESSION: Mild degenerative findings of the AC joint. No acute fracture or dislocation. Dictated by: Dictated on workstation # [id number]
== END ==
LOC: RAD 11:44
PROVIDERS: ATTEND Family Medicine
DX: M19.011 Primary osteoarthritis, right shoulder (principal)
CPT/HCPCS: 73030

== ENCOUNTER 2020-11-08 05:29 | Outpatient (RCR) | payer MEDICARE ==
[~2020-11-08] VITALS: Ht 177.8 cm; Wt 63.6 kg
[~2020-11-08 05:29] MED LIST changes: +ASPI-999 PO; +CETI10TA17 PO; +CHOL10002 PO; +MONT10TA32 PO; -MONT10TA97 PO; +MULT-1056 PO; -OXYC-471 PO; +OXYC1TAB11 PO; +TRZ50T PO; +ZINC50TA11 PO
== END 2020-11-08 10:30 | disposition home or self-care (01) ==
LOC: PREOP 05:29
PROVIDERS: ATTEND Orthopaedic Surgery
DX: Z01.812 Encounter for preprocedural laboratory examination (principal); M75.101 Unspecified rotator cuff tear or rupture of right shoulder, not specified as traumatic; Z20.822 Contact with and (suspected) exposure to COVID-19
CPT/HCPCS: 87635

== ENCOUNTER 2020-11-10 07:57 | Day surgery (SDC) | payer MEDICARE ==
--- NOTE | 2020-11-01 11:22 | HISTORY AND PHYSICAL ---
DATE OF SERVICE: ADMISSION HISTORY AND PHYSICAL DATE OF ADMISSION: 11/10/2020. This will be for outpatient surgery on 11/10/2020 for right shoulder arthroscopy, open rotator cuff repair and debridement. HISTORY OF PRESENT ILLNESS: The patient is a 70-year-old right hand dominant gentleman with complaints of right shoulder pain. He reports this started when he was pulling a treadmill out of his shed in mid-July. Since then, he has had pain and weakness in his right shoulder, difficulty with raising his arm. An MRI was obtained, which revealed rotator cuff tendinosis with partial tearing as well as degenerative changes in the glenohumeral joint. Due to functional impairment and failure to improve with conservative measures with weakness and functional impairment, the patient has elected to proceed with surgical intervention. REVIEW OF SYSTEMS: No chest pain, no shortness of breath, and no dysuria. PAST MEDICAL HISTORY: Back pain, reflux, hyperlipidemia, hypertension, osteoarthritis, sinusitis, supraventricular tachycardia, and coronary artery disease. PAST SURGICAL HISTORY: Coronary stent, lumbar spine, and left knee arthroscopy. FAMILY HISTORY: Noncontributory. PRIMARY CARE PROVIDER: Dr. Mathews. MEDICATIONS: Aspirin, Zyrtec, Lyrica, clonazepam, pravastatin, ProAir, and metoprolol. ALLERGIES: BEEF and BANANAS. SOCIAL HISTORY: The patient drinks alcohol socially. He is a former smoker. PHYSICAL EXAMINATION: GENERAL: The patient is a well-developed, well-nourished, in no acute distress. HEENT: Normocephalic and atraumatic. Pupils are equal, round and reactive to light. Oropharynx is clear. NECK: Supple with no lymphadenopathy. LUNGS: Clear to auscultation bilaterally. HEART: Regular rate and rhythm. ABDOMEN: Soft, nontender, and nondistended. EXTREMITIES: The right shoulder demonstrates active forward elevation 120 degrees, passive 160, external rotation actively 60 degrees, passively is 80, internal rotation to his beltline. He has a positive drop arm sign with weakness in abduction and external rotation with positive Neer's and Hawkin sign and negative Spurling's maneuver. IMPRESSION: Right shoulder near full thickness rotator cuff tear with associated arthritis. PLAN: Right shoulder arthroscopy, chondroplasty, and open rotator cuff repair. The risks, benefits, options, ramifications and recovery have been discussed at length with the patient. He understands and wishes to proceed. Job ID: [id number] DocumentID: [id number] Dictated Date: 11/01/2020 11:09:35 [employer] Consultant Date: 11/01/2020 11:22:01 Dictated By: LANCE MACARIO MD
[2020-11-10] VITALS (10 sets, daily range): BP systolic 100–119; BP diastolic 62–80
[~2020-11-10] VITALS: Ht 180.3 cm; Wt 63.6 kg
[~2020-11-10 07:57] MED LIST changes: +CHOL-34 PO; -CHOL10002 PO; +oxyCODONE/APAP 5/325MG (PERCOCET 5) TABLET PO PRN
[2020-11-10] MEDS ORDERED: ceFAZolin INJECTION 1,000 MG in WATER (STERILE) FOR INJECTION 10 ML IV ONE (08:15)
[2020-11-10] MEDS ORDERED: LACTATED RINGERS 1,000 ML IV PRN (08:15)
[2020-11-10] MEDS ORDERED: fentaNYL INJECTION 100 MCG/2 ML AMP ONE (08:22)
[2020-11-10] MEDS ORDERED: LIDOCAINE PF 2% 5 ML (XYLOCAINE) VIAL ONE ×2 (08:22→09:10)
[2020-11-10] MEDS ORDERED: morphine PF (DURAMORPH) 10 MG/10 ML AMP ONE (08:22)
[2020-11-10] MEDS ORDERED: MIDAZOLAM 2 MG/2 ML (VERSED) VIAL ONE (08:22)
[2020-11-10] MEDS ORDERED: BUPIVACAINE 0.25% 30 ML (SENSORCAINE) VIAL ONE (08:23)
[2020-11-10] MEDS ORDERED: ONDANSETRON 4 MG/2 ML (SDV) Z0FRAN ONE (09:10)
[2020-11-10] MEDS ORDERED: proPOfol 200 MG/20 ML (DIPRIVAN) VIAL IV ONE (09:10)
[2020-11-10] MEDS ORDERED: ROCURONIUM 10 MG/ML 5 ML SYRINGE IV ONE (09:10)
[2020-11-10] MEDS ORDERED: SEVOFLURANE (ULTANE) 15 ML INHAL SOLN ONE (09:10)
[2020-11-10] MEDS ORDERED: GLYCOPYRROLATE 0.2 MG/ML (ROBINUL) 2 ML VIAL ONE (09:10)
[2020-11-10] MEDS ORDERED: NEOSTIGMINE 3 MG/3 ML VIAL ONE (09:10)
[2020-11-10] MEDS ORDERED: ROPIVACAINE 5MG/ML 30ML VIAL ONE (09:11)
--- NOTE | 2020-11-10 09:44 | Progress Note-Pre Operative ---
Pre-Operative Progress Note H&P Reviewed The H&P was reviewed, patient examined and no changes noted. 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
--- NOTE | 2020-11-10 09:45 | Progress Note-Post Operative ---
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
--- NOTE | 2020-11-10 11:11 | Anesthesia-General Post-Op ---
General Patient Condition Mental Status/LOC: Same as Preop Cardiovascular: Satisfactory Nausea/Vomiting: Absent Respiratory: Satisfactory Pain: Controlled Complications: Absent Post Op Complications Complications None Follow Up Care/Instructions Patient Instructions None needed. Anesthesia/Patient Condition Patient Condition Patient is doing well, no complaints, stable vital signs, no apparent adverse anesthesia problems. No complications reported per nursing. D/C home per [facility] Criteria: Yes TRACY ISRAEL CRNA Nov 10, 2020 11:11
[2020-11-10] MEDS ORDERED: OXYC1TAB11 PO (12:29)
--- NOTE | 2020-11-10 15:16 | OPERATIVE REPORT ---
DATE OF SERVICE: 11/10/2020 PREOPERATIVE DIAGNOSES: 1. Right shoulder glenoid chondromalacia. 2. Right shoulder SLAP tear. POSTOPERATIVE DIAGNOSES: 1. Right shoulder SLAP tear. 2. Right shoulder glenoid chondromalacia. PROCEDURES: 1. Right shoulder arthroscopic biceps tenotomy. 2. Right shoulder arthroscopic chondroplasty of the glenoid. 3. Right shoulder arthroscopic acromioplasty. SURGEON: Iván Macario MD SETTER MACHINE: Mack Vieyra, who assisted throughout the procedure and closed the incisions. ANESTHESIA: General endotracheal by Kathy Last CRNA. ESTIMATED BLOOD LOSS: Minimal. DRAINS: None. COMPLICATIONS: None. POSTOPERATIVE PLAN: Sling wear for comfort with progressive range of motion as symptoms allow. The patient was transferred to the recovery room awake and in stable condition. STATEMENT OF MEDICAL NECESSITY: The patient is a 70-year-old right hand dominant gentleman who injured his right shoulder when he was pulling on a heavy object. Since then has had pain and weakness with overhead activities. An MRI revealed a rotator cuff strain and a SLAP tear. He had tried rest, activity modifications, anti-inflammatories. Due to functional impairment and failure to improve with conservative measures, the patient elected to proceed with surgical intervention. Examination under anesthesia revealed a forward elevation of 170 degrees, external rotation of 80 degrees, internal rotation of 70 degrees. Arthroscopic findings, rotator cuff was intact throughout, the subacromial space demonstrated moderate bursitis with slope in the anterolateral acromion. There was a type 2 SLAP tear. There was grade II chondral flap in the 12 o'clock position of the glenoid. The remainder of the humeral head and glenoid demonstrated no significant chondral abnormalities. DESCRIPTION OF PROCEDURE: After risks and benefits of procedure were discussed and questions were answered, an informed consent was signed and placed on chart, the operative site was confirmed in the preoperative holding area initialed by the surgeon. The patient was then transferred to the operating room and after adequate levels of general endotracheal anesthetic were obtained, a timeout was called, confirming the operative site. Examination under anesthesia was performed with above findings noted. The right shoulder and upper extremity were prepped and draped in the usual sterile fashion. Shoulder joint was injected with 20 mL of fluid as was the subacromial space. A standard posterior portal was placed under direct visualization. Anterior portal was created in the interval between the biceps, subscapularis and glenoid. The biceps anchor was released, the stump was debrided with a shaver. The chondral flap on the glenoid was debrided with shaver back to a stable edge. The scope was then redirected into the subacromial space. Lateral portal was created and bursectomy was performed and the acromion was planed to a flat type 1 acromion. The shoulder joint and subacromial spaces were copiously irrigated. The port sites were closed with 4-0 nylon in septic fashion. Shoulder was injected with Duramorph. Port sites were infiltrated with plain Marcaine. A soft dressing was applied. The patient was transferred to the recovery room awake and in stable condition. Job ID: [id number] DocumentID: [id number] Dictated Date: 11/10/2020 10:46:22 Mechanical Integrity Specialist Date: 11/10/2020 15:16:22 Dictated By: IVNÁ MACARIO MD
== END 2020-11-10 13:08 | disposition home or self-care (01) ==
LOC: SDC 07:57
PROVIDERS: ATTEND Orthopaedic Surgery
DX: S43.431A Superior glenoid labrum lesion of right shoulder, initial encounter (principal); M94.211 Chondromalacia, right shoulder; I10 Essential (primary) hypertension; I25.10 Atherosclerotic heart disease of native coronary artery without angina pectoris; F41.9 Anxiety disorder, unspecified; J44.9 Chronic obstructive pulmonary disease, unspecified; E78.5 Hyperlipidemia, unspecified; K21.9 Gastro-esophageal reflux disease without esophagitis; M19.90 Unspecified osteoarthritis, unspecified site; Z79.899 Other long term (current) drug therapy; Z79.51 Long term (current) use of inhaled steroids; Z79.82 Long term (current) use of aspirin; Z91.018 Allergy to other foods; Z95.5 Presence of coronary angioplasty implant and graft
CPT/HCPCS: 87081

== ENCOUNTER 2021-01-13 11:30 | Outpatient (RCR) | payer MEDICARE ==
[~2021-01-13 11:30] MED LIST changes: -oxyCODONE/APAP 5/325MG (PERCOCET 5) TABLET PO PRN
== END 2021-01-26 15:36 | disposition home or self-care (01) ==
PROVIDERS: ATTEND Orthopaedic Surgery
DX: R29.898 Other symptoms and signs involving the musculoskeletal system (principal); Z98.890 Other specified postprocedural states

== ENCOUNTER → 2021-04-22 | Outpatient (CLI) | payer MEDICARE ==
--- NOTE | 2021-04-22 16:59 | Diagnostic Imaging Report ---
TECHNIQUE: Multiple contiguous axial images were obtained through the right upper extremity without the use of intravenous contrast. Sagittal and coronal reformations were then performed. Auto Exposure Controls were utilized during the CT exam to meet ALARA standards for radiation dose reduction. INDICATION: History of prior dislocation. Pain. EXAMINATION: CT of the right upper extremity without contrast, 04/22/2021. FINDINGS: There is superior subluxation of the humeral head in relation to the glenoid which could be due to underlying rotator cuff full-thickness rotator cuff tears. Correlate with the physical examination and if patient is able MRI. There is no displaced fracture. There is mild osteopenia. Visualized axilla is unremarkable. Visualized aspects of the right lung demonstrate diffuse scarring and partially calcified scar perhaps due to prior asbestos exposure and calcified pleural plaques in the right apex. IMPRESSION: Chronic changes throughout the shoulder with no acute fracture appreciated. Mild superior subluxation of the humeral head in relation to the glenoid is seen and can be noted in patients with full-thickness rotator cuff tears, correlate clinically. Otherwise this could be positional. Dictated by: Dictated on workstation # [id number]
== END ==
LOC: RAD 16:15
PROVIDERS: ATTEND Orthopaedic Surgery
DX: S23.29XD Dislocation of other parts of thorax, subsequent encounter (principal); X58.XXXD Exposure to other specified factors, subsequent encounter
CPT/HCPCS: 73200

== ENCOUNTER 2021-08-08 17:18 | Emergency (ER) | payer MEDICARE ==
[~2021-08-08] VITALS: Ht 180 cm; Wt 59.0 kg
[~2021-08-08 17:18] MED LIST changes: -TRAM-42 PO
[2021-08-08] MEDS ORDERED: NITROGLYCERIN 0.4 MG SL TABS BTL 25'S SL PRN (17:30)
[2021-08-08] MEDS ORDERED: ASPIRIN 81 MG CHEW (CHILDREN'S ASA) PO ONE (17:30)
--- NOTE | 2021-08-08 17:40 | ED Chest Pain ---
General Chief Complaint: Chest Pain Stated Complaint: ABNORMAL EKG,CP Nursing Triage Note: PT TO ED RM 3 PT CO OF CHEST PAIN AND L UPPER ARM TENDERNESS X 2 WEEKS, HAS OCC SOA PT SENT FROM DR THOMAS OFFICE. PT HAS COUGH FOR APPROX 2 WEEKS Source: patient Exam Limitations: no limitations (YOLA SIMMONS) History of Present Illness Date Seen by Provider: Aug 08, 2021 Time Seen by Provider: 17:18 Initial Comments Patient presents ER by private conveyance from Dr. OTT's clinic with chief complaint that for the past 2 weeks been having a cough nonproductive a little bit of a shortness of air not really exertional. He has been having some left shoulder pain worse with movement or direct palpation radiating into his left chest. He has a history of coronary disease with 5 stents. No nausea fevers chills sweats diarrhea. He has had Moderna COVID-19 vaccination x2. He had a negative Covid and influenza swab at Dr. OTT's office according to Dr. OTT over the phone. He has not had a chest x-ray recently. He does not feel short of breath. He rates his pain presently is a 5 out of 10. He has a history of strong shoulder osteoarthritis with surgery on his right shoulder in the [facility]. He and his provider felt that it was most likely osteoarthritis in his shoulder today. (YOLA SIMMONS) Allergies and Home Medications Allergies Coded Allergies: banana (Verified Allergy, Unknown, lips swell, 11/04/20) beef derived (bovine) (Verified Allergy, Unknown, lips swell, 11/04/20) Patient Home Medication List Home Medication List Reviewed: Yes (YOLA SIMMONS) Albuterol Sulfate (Proair Hfa) 1 Puff Puff, 2 PUFF IH Q4H PRN for SHORTNESS OF BREATH, (Reported) Entered as Reported by: GWENDOLYN VASQUEZ on 06/11/19 0909 Aspirin (Aspirin) 81 Mg Tab.chew, 81 MG PO DAILY, (Reported) Entered as Reported by: GWENDOLYN VASQUEZ on 11/04/20 1059 Cetirizine HCl (Cetirizine HCl) 10 Mg Tablet, 10 MG PO DAILY, (Reported) Entered as Reported by: GWENDOLYN VASQUEZ on 11/04/20 1059 Cholecalciferol (Vitamin D3) (Vitamin D3) 25 Mcg Tablet, 25 MCG PO DAILY, (Reported) Entered as Reported by: GWENDOLYN VASQUEZ on 11/04/20 1059 Clonazepam (Clonazepam) 1 Mg Tablet, 1 MG PO DAILY, (Reported) Entered as Reported by: YOLY BAJWA on 08/28/17 0733 Metoprolol Tartrate (Metoprolol Tartrate) 25 Mg Tablet, 12.5 MG PO BID, (Reported) Entered as Reported by: GWENDOLYN VASQUEZ on 06/11/19 0909 Multivit-Min/FA/Lycopen/Lutein (Men 50 Plus Multivitamin Tab) 1 Each Tablet, 1 EACH PO DAILY, (Reported) Entered as Reported by: GWENDOLYN VASQUEZ on 11/04/20 1059 Oxycodone HCl/Acetaminophen (Oxycodone-Acetaminophen 5-325) 1 Each Tablet, 1 EACH PO Q4H PRN for PAIN-SEVERE Prescribed by: AZALEA MARTINEZ on 11/10/20 1229 Pravastatin Sodium (Pravastatin Sodium) 20 Mg Tablet, 20 MG PO DAILY, (Reported) Entered as Reported by: COLE PERAZA on 06/19/16 1001 Pregabalin (Lyrica) 75 Mg Capsule, 75 MG PO HS, (Reported) Entered as Reported by: GWENDOLYN VASQUEZ on 06/11/19 0909 Primidone (Mysoline) 50 Mg Tablet, 100 MG PO BID, (Reported) Entered as Reported by: GWENDOLYN VASQUEZ on 06/11/19 0909 Trazodone HCl (Trazodone HCl) 50 Mg Tablet, 50 MG PO HS, (Reported) Entered as Reported by: GWENDOLYN VASQUEZ on 11/04/20 1059 Zinc Gluconate (Zinc) 50 Mg Tablet, 50 MG PO DAILY, (Reported) Entered as Reported by: GWENDOLYN VASQUEZ on 11/04/20 1059 Review of Systems Review of Systems Constitutional: No chills, No diaphoresis EENTM: No Blurred Vision, No Double Vision Respiratory: Denies Cough, Denies Shortness of Air; SOA With Exertion Cardiovascular: Chest Pain; Denies Edema, Denies Irregular Heart Rate, Denies Lightheadedness Gastrointestinal: Denies Abdominal Pain, Denies Constipated, Denies Diarrhea, Denies Nausea, Denies Poor Fluid Intake, Denies Vomiting Genitourinary: Denies Burning, Denies Discharge Musculoskeletal: see HPI; No back pain; joint pain Skin: No pruritus, No rash (YOLA SIMMONS) All Other Systems Reviewed Negative Unless Noted: Yes (YOLA SIMMONS) Past Yroruyn-Hpoidu-Shirzb Hx Patient Social History Tobacco Use?: No Substance use?: No Alcohol Use?: No Pt feels they are or have been: No (YOLA SIMMONS) Immunizations Up To Date Tetanus Booster (TDap): Unknown Second COVID19 Vaccination Emre: MODERNA BOTH VACCINES (YOLA SIMMONS) Seasonal Allergies Seasonal Allergies: Yes (YOLA SIMMONS) Past Medical History Surgeries: Yes (BACK x4, L KNEE scope, LOOP RECORDER placed and removed) Cardiac, Coronary Stent, Orthopedic Respiratory: Yes (HAS CHRONIC DYSPNEA) Asthma, COPD Cardiac: Yes (CARDIAC STENTS X5, svt) Coronary Artery Disease, Heart Attack, High Cholesterol, Hypertension Neurological: Yes (TREMORS) Reproductive Disorders: No Sexually Transmitted Disease: No HIV/AIDS: No Genitourinary: Yes Kidney Stones Gastrointestinal: No Musculoskeletal: Yes (LEFT PATELLLA FX/REPAIR, R shoulder rotator cuff tear) Arthritis, Chronic Back Pain, Fractures Endocrine: No HEENT: No Loss of Vision: Bilateral Hearing Impairment: Denies Cancer: No Psychosocial: Yes Sleep Difficulties, Anxiety Integumentary: No Blood Disorders: No Adverse Reaction/Blood Tranf: No (N/A) (YOLA SIMMONS) Family Medical History No Pertinent Family Hx (YOLA SIMMONS) Physical Exam Vital Signs Vital Signs - First Documented 08/08/21 17:22 Pulse 58 Resp 18 B/P (MAP) 134/79 (97) Pulse Ox 99 (ALIDA,JUAN K DO) Vital Signs Capillary Refill : Less Than 3 Seconds (YOLA SIMMONS) Height, Weight, BMI Height: 5'11.00" Weight: 136lbs. 0.0oz. [id number]; 18.00 BMI Method:Stated General Appearance: No Apparent Distress, WD/WN, Thin HEENT: PERRL/EOMI, TMs Normal, Normal ENT Inspection, Pharynx Normal Neck: Full Range of Motion, Normal Inspection, Non Tender Respiratory: No Chest Non Tender (Chest wall tender to direct palpation without deformity, crepitus or mass); Lungs Clear, Normal Breath Sounds, No Accessory Muscle Use, No Respiratory Distress Cardiovascular: Regular Rate, Rhythm, No Edema, No JVD, No Murmur, Normal Per ipheral Pulses Gastrointestinal: Normal Bowel Sounds, Non Tender, Soft Extremity: Normal Inspection, Normal Range of Motion, Non Tender, No Pedal Edema Neurologic/Psychiatric: Alert, Oriented x3 Skin: Normal Color, Warm/Dry (IRIS,YOLA J) Progress/Results/Core Measures Results/Orders Lab Results Laboratory Tests Test 08/08/21 17:30 Range/Units Prothrombin Time 13.1 12.2-14.7 SEC INR Comment 1.0 0.8-1.4 Activated Partial Thromboplast Time 23 L 24-35 SEC Magnesium Level 1.8 1.6-2.4 MG/DL Myoglobin 34.2 10.0-92.0 NG/ML Troponin I < 0.028 <0.028 NG/ML (JUAN IRWIN DO) Medications Given in ED Current Medications Medications Dose Ordered Sig/Donna Route Start Time Stop Time Status Last Admin Dose Admin Acetaminophen/ Hydrocodone Bitart 1 ea ONCE ONCE PO 08/08/21 18:15 08/08/21 18:16 DC 08/08/21 18:11 1 EA Aspirin 324 mg ONCE ONCE PO 08/08/21 17:30 08/08/21 17:31 DC 08/08/21 17:41 324 MG Nitroglycerin 0.4 mg UD PRN SL 08/08/21 17:30 08/08/21 17:41 0.4 MG (ALIDAJUAN K DO) Vital Signs/I&O 08/08/21 17:22 Pulse 58 Resp 18 B/P (MAP) 134/79 (97) Pulse Ox 99 (ALIDAJUAN K DO) Blood Pressure Mean: 97 Progress Progress Note : Time: 17:38 Progress Note Patient had a normal heart cath with no further interventions in 2019. Followed by Dr. Castañeda for cardiology. All of his chest pain is reproducible. We did review the EKG that he was sent over to get outpatient by his primary care provider. It shows what looks to be tremor artifact and is not useful diagnostically speaking. We repeated the chest x-ray and will add another troponin in addition to his negative troponin 2 hours prior to arrival. EKG now is normal. We will trial a dose of nitroglycerin if that does not help then will trial some Tylenol. He says topical cream that he is been using for it has been helping up until the last couple days it has been waking him up at night about 3 or 4 in the morning with pain. 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 Pneumonia/bronchitis is also on the differential. (YOLA SIMMONS) Progress Note : Progress Note 1800--ASSUMED CARE FROM DR. SIMMONS, REPEAT TROPONIN PENDING. HYDROCODONE GIVEN FOR C/O LEFT SHOULDER PAIN (JUAN IRWIN DO) Initial ECG Impression Date: Aug 08, 2021 Initial ECG Impression Time: 17:22 Initial ECG Rate: 63 Initial ECG Rhythm: Normal Sinus Initial ECG Intervals: Normal Initial ECG Impression: Normal, Nonspecific Changes Initial ECG Comparisson: Unchanged Comment Bigeminy noted but no clinically relevant ST changes. (YOLA SIMMONS) Diagnostic Imaging Diagonstic Imaging: Xray Plain Films/CT/US/NM/MRI: chest Comments [facility], [place] NAME: VINICIO GUERRIER [facility] REC#: [id number] PT STATUS: REG ER : 1950 PHYSICIAN: YOLA SIMMONS MD ADMIT DATE: 08/08/21/ER Draft Date of Exam:08/08/21 CHEST 1 VIEW, AP/PA ONLY EXAMINATION: Chest 1 view HISTORY: Chest pain COMPARISON: 03/22/2012 FINDINGS: The lungs are clear without edema or pneumonia. No pleural effusion or pneumothorax. Heart size is normal. IMPRESSION: 1. Clear lungs. Dictated on workstation # [id number] Dict: 08/08/218 Trans: 08/08/21 174 JUAN [id number] Interpreted by: JAYDON LACKEY MD Electronically signed by: Reviewed: Reviewed by Me (YOLA SIMMONS) Transfer of Care Time: 18:00 Care transferred to: ALIDA (YOLA SIMMONS) Departure Communication (Admissions) 181--SPOKE WITH DR. OTT, ADVISES TO SEND PT HOME AND SHE WILL FOLLOW UP WITH HIM IN OFFICE THIS WEEK. ADVISES TO SEND HOME WITH RX FOR TRAMADOL (JUAN IRWIN DO) Impression Primary Impression: Chest wall pain Additional Impression: Left shoulder pain Disposition: HOME, SELF-CARE Condition: Stable Departure-Patient Inst. Decision time for Depature: 18:20 (JUAN IRWIN DO) Referrals: DEDRA OTT DO (PCP/Family) Primary Care Physician Patient Instructions: Chest Pain, Shoulder Pain (DC), Costochondritis (DC) Add. Discharge Instructions: CONTINUE YOUR REGULAR MEDICATIONS PRESCRIBED FOLLOW UP WITH DR. OTT THIS WEEK FOR FURTHER CARE All discharge instructions reviewed with patient and/or family. Voiced understanding. Scripts Tramadol HCl (Ultram) 50 Mg Tablet 50 MG PO Q4H for Pain, #20 TAB Prov: JUAN IRWIN DO 08/08/21 YOLA SIMMONS Aug 08, 2021 17:40 JUAN IRWIN DO Aug 08, 2021 18:25
[2021-08-08 17:58] LABS: PROTHROMBIN TIME PATIENT 13.1 SEC (12.2-14.7)
[2021-08-08] MEDS ORDERED: HYDROcodone/APAP 5 MG/325 MG (LORTAB) TAB ONE (18:06)
[2021-08-08 18:08] LABS: MAGNESIUM 1.8 MG/DL (1.6-2.4)
[2021-08-08] MEDS ORDERED: HYDROcodone/APAP 5 MG/325 MG (LORTAB) TAB PO ONE (18:15)
[2021-08-08] MEDS ORDERED: TRAM-42 PO (18:24)
[2021-08-08 18:43] VITALS: BP 118/70
== END 2021-08-08 18:43 | disposition home or self-care (01) ==
LOC: EDUNIT# 17:18 → ER 17:20
DX: R07.89 Other chest pain (principal); M25.512 Pain in left shoulder; J44.9 Chronic obstructive pulmonary disease, unspecified; I10 Essential (primary) hypertension; I25.2 Old myocardial infarction; E78.00 Pure hypercholesterolemia, unspecified; I25.10 Atherosclerotic heart disease of native coronary artery without angina pectoris; F41.9 Anxiety disorder, unspecified; G89.29 Other chronic pain; M54.9 Dorsalgia, unspecified; Z79.82 Long term (current) use of aspirin; Z79.891 Long term (current) use of opiate analgesic; Z79.899 Other long term (current) drug therapy
CPT/HCPCS: 36415; 71045; 83735; 83874; 84484; 85610; 85730; 93005; 93041

== ENCOUNTER → 2021-08-08 | Outpatient (CLI) | payer MEDICARE ==
[~2021-08-08] MED LIST changes: +TRAM-42 PO
[2021-08-08 15:37] LABS: BASOPHILS # (AUTO) 0.1 10^3/uL (0.0-0.1); BASOPHILS % (AUTO) 1 % (0-10); EOSINOPHILS # (AUTO) 0.5 10^3/uL (0.0-0.3); EOSINOPHILS % (AUTO) 7 % (0-10); HEMATOCRIT 42 % (40-54); HEMOGLOBIN 13.8 g/dL (13.3-17.7); LYMPHOCYTES # (AUTO) 1.7 10^3/uL (1.0-4.0); LYMPHOCYTES % (AUTO) 27 % (12-44); MEAN CORPUSCULAR HEMOGLOBIN 30 pg (25-34); MEAN CORPUSCULAR HGB CONC 33 g/dL (32-36); MEAN CORPUSCULAR VOLUME 90 fL (80-99); MONOCYTES # (AUTO) 0.6 10^3/uL (0.0-1.0); MONOCYTES % (AUTO) 10 % (0-12); NEUTROPHILS # (AUTO) 3.5 10^3/uL (1.8-7.8); NEUTROPHILS % (AUTO) 55 % (42-75); PLATELET COUNT 188 10^3/uL (130-400); WHITE BLOOD COUNT 6.4 10^3/uL (4.3-11.0)
[2021-08-08 15:51] LABS: ALBUMIN 4.3 GM/DL (3.2-4.5); CHLORIDE 102 MMOL/L (98-107); POTASSIUM 4.6 MMOL/L (3.6-5.0); SODIUM 138 MMOL/L (135-145)
[2021-08-08 15:54] LABS: GLUCOSE 101 MG/DL (70-105); TOTAL PROTEIN 7.5 GM/DL (6.4-8.2)
[2021-08-08 15:55] LABS: BILIRUBIN,TOTAL 0.5 MG/DL (0.1-1.0); CARBON DIOXIDE 25 MMOL/L (21-32)
[2021-08-08 15:57] LABS: ALKALINE PHOSPHATASE 84 U/L (40-136); CREATININE SERUM 0.95 MG/DL (0.60-1.30); GFR ESTIMATED 79
[2021-08-08 15:58] LABS: BUN/CREATININE RATIO 11
[2021-08-08 16:00] LABS: ALANINE AMINOTRANSFERASE 11 U/L (0-55)
[2021-08-08 16:06] LABS: CREATINE KINASE MB 0.5 NG/ML (<6.6)
== END ==
LOC: CARD 15:22
PROVIDERS: ATTEND Family Medicine
DX: R05.9 Cough, unspecified (principal); R07.9 Chest pain, unspecified; Z20.822 Contact with and (suspected) exposure to COVID-19
CPT/HCPCS: 36415; 80053; 82553; 84484; 85025; 86141; 93005

== ENCOUNTER → 2022-06-08 | Outpatient (CLI) | payer MEDICARE ==
[~2022-06-08] MED LIST changes: +CYCL10TA25 PO; -CYCL10TA9 PO; +MONT-40 PO; -MONT10TA32 PO; +TRAM-42 PO
== END ==
LOC: CARD 12:00
PROVIDERS: ATTEND Nurse Practitioner Family
DX: I34.0 Nonrheumatic mitral (valve) insufficiency (principal)
CPT/HCPCS: 93306

== ENCOUNTER → 2022-06-13 | Outpatient (CLI) | payer MEDICARE ==
[~2022-06-13] MED LIST changes: +REGADENOSON 0.4 MG/5 ML SYR (LEXISCAN) IV ONE
[2022-06-13] MEDS: CATHETER FLUSH 10 ML SYR IVP PRN ×2 (07:37→09:02)
[2022-06-13 09:01] VITALS: BP 119/73
--- NOTE | 2022-06-14 10:23 | STRESS TEST ---
DATE OF SERVICE: 06/13/2022 RESTING AND POST REGADENOSON TECHNETIUM-99M TETROFOSMIN SPECT CT IMAGING ORDERING PHYSICIAN: Mary Lou Mtz APRN PRIMARY PHYSICIAN: Dr. Mathews. CLINICAL DIAGNOSIS: Coronary artery disease. Baseline images were carried out after injection of 10.4 mCi of technetium-99m Tetrofosmin. This was followed by 0.4 mg regadenoson and 32.8 mCi technetium-99m Tetrofosmin for stress imaging. The electrocardiogram showed sinus rhythm at baseline. It did not change significantly with the regadenoson infusion. Review of images at rest and following stress does not indicate any significant perfusion defect consistent with myocardial ischemia or infarction. Gated images show normal global left ventricular systolic function with normal regional wall motion. Left ventricular ejection fraction is calculated to be 76%. CONCLUSIONS: 1. No evidence of significant myocardial ischemia or infarction on this study. 2. Normal regional wall motion. 3. Normal global left ventricular systolic function with a calculated ejection fraction 76%. Job ID: [id number] DocumentID: [id number] Dictated Date: 06/14/2022 09:28:29 Associate Account Executive Date: 06/14/2022 10:22:46 Dictated By: POORNIMA GRAVES MD, MA, FACP, FACC,
== END ==
LOC: CARD 07:30
PROVIDERS: ATTEND Nurse Practitioner Family
DX: I25.10 Atherosclerotic heart disease of native coronary artery without angina pectoris (principal)
CPT/HCPCS: 78452; 93017; A9502

== ENCOUNTER 2022-06-27 06:42 | Day surgery (SDC) | payer MEDICARE ==
[2022-06-27] VITALS (10 sets, daily range): BP systolic 100–122; BP diastolic 61–78
[~2022-06-27] VITALS: Ht 180.3 cm; Wt 58.3 kg
[~2022-06-27 06:42] MED LIST changes: -REGADENOSON 0.4 MG/5 ML SYR (LEXISCAN) IV ONE
[2022-06-27] MEDS ORDERED: NS IV 1000 ML 1,000 ML IV SCH ×2 (07:00→11:15)
[2022-06-27] MEDS ORDERED: HEParin (CATH LAB) 2,000 ML IV ONE (07:00)
[2022-06-27] MEDS ORDERED: LIDOCAINE 1% INJ 30 ML (XYLOCAINE) VIAL ONE (07:00)
[2022-06-27] MEDS ORDERED: NS IV 1000 ML 1,000 ML ONE (07:00)
[2022-06-27 07:27] LABS: HEMATOCRIT 38 % (40-54); HEMOGLOBIN 12.8 g/dL (13.3-17.7); MEAN CORPUSCULAR HEMOGLOBIN 31 pg (25-34); MEAN CORPUSCULAR HGB CONC 34 g/dL (32-36); MEAN CORPUSCULAR VOLUME 91 fL (80-99); PLATELET COUNT 165 10^3/uL (130-400); WHITE BLOOD COUNT 5.1 10^3/uL (4.3-11.0)
[2022-06-27] MEDS ORDERED: NITR0.4T39 SL (07:53)
[2022-06-27 07:58] LABS: ALBUMIN 3.9 GM/DL (3.2-4.5); BILIRUBIN,TOTAL 0.8 MG/DL (0.1-1.0); CALCIUM 8.7 MG/DL (8.5-10.1); CREATININE SERUM 1.08 MG/DL (0.60-1.30); POTASSIUM 3.6 MMOL/L (3.6-5.0); TOTAL PROTEIN 6.7 GM/DL (6.4-8.2)
[2022-06-27 08:56] LABS: PROTHROMBIN TIME PATIENT 13.6 SEC (12.2-14.7)
[2022-06-27] MEDS ORDERED: MIDAZOLAM 5 MG/5 ML (VERSED) VIAL ONE (09:53)
[2022-06-27] MEDS ORDERED: fentaNYL INJ 100 MCG/2 ML AMP ONE (09:53)
--- NOTE | 2022-06-27 11:07 | Cardiac Procedure Note-CS/ASA ---
Pre-Procedure Note Pre-Op Procedure Note Date of Available H&P: Jun 19, 2022 Date H&P Reviewed: Jun 27, 2022 Time H&P Reviewed: 10:30 History & Physical: No changes noted Conscious Sedation Pre-Proced ASA Score 3 For ASA 3 and 4: Consider anesthesia and medical clearance. Also, for patients with a history of failed moderate sedation consider anesthesia. Airway Lungs Heart ASA score ASA 1: a normal healthy patient ASA 2: a patient with a mild systemic disease (mid diabetes, controlled hypertension, obesity ASA 3: a patient with a severe systemic disease that limits activity (angina, COPD, prior Myocardial infarction) ASA 4: a patient with an incapacitating disease that is a constant threat to life (CHF, renal failure) ASA 5: a moribund patient not expected to survive 24 hrs. (ruptured aneurysm) ASA 6: a declared brain- patient whose organs are being harvested. For emergent operations, add the letter E after the classification Mallampati Classification Grade 2 Sedation Plan Analgesia, Amnesia, Plan communicated to team members The patient is an appropriate candidate to undergo the planned procedure, sedation, and anesthesia. The patient immediately re-assessed prior to indication. POORNIMA GRAVES MD FACP FAC [facility] Jun 27, 2022 11:07
--- NOTE | 2022-06-27 11:09 | Discharge Inst-Cardiology ---
Discharge Inst-Cardiac Discharge Medications Continued Medications: Albuterol Sulfate (Proair Hfa) 1 Puff Puff 2 PUFF IH Q4H PRN for SHORTNESS OF BREATH Aspirin (Aspirin) 81 Mg Tab.chew 81 MG PO DAILY, TAB Cholecalciferol (Vitamin D3) (Vitamin D3) 25 Mcg Tablet 25 MCG PO DAILY, TAB Clonazepam (Clonazepam) 1 Mg Tablet 1 MG PO DAILY, TAB Nitroglycerin (Nitroglycerin) 0.4 Mg Tab.subl 0.4 MG SL UD PRN for CHEST PAIN, TAB Pravastatin Sodium (Pravastatin Sodium) 20 Mg Tablet 20 MG PO DAILY, TAB Pregabalin (Lyrica) 75 Mg Capsule 75 MG PO HS Primidone (Mysoline) 50 Mg Tablet 50 MG PO BID, TAB Trazodone HCl (Trazodone HCl) 50 Mg Tablet 50 MG PO HS Zinc Gluconate (Zinc) 50 Mg Tablet 50 MG PO DAILY, TAB POORNIMA GRAVES MD FACP [facility] Jun 27, 2022 11:09
--- NOTE | 2022-06-27 11:09 | Discharge Inst-Post CATH ---
Discharge Inst-CATH/EP Post Cardiac Cath/EP D/C Inst Follow Up/Plan F/u with Dr Ramsey in 2-3 weeks ACTIVITY * Go Home directly and rest. * Limit activity of the leg (or wrist if it was used) for 7 days including aerobics, swimming, jogging, bicycling, etc. * Restrict stair-climbing for 7 days if possible, if not, climb up with your non-cath leg, then bring together on the same step. * Avoid lifting, pushing, pulling or excessive movement of the affected e xtremity for 7 days. * Customary sexual activity may be resumed after 2 days-use caution not to use a position that strains or causes pain to the affected extremity. * No driving for 24 hours. * NO SMOKING. * Avoid straining for bowel movements for 7 days. * Gentle walking on level ground is allowed. * Returning to work will depend on the type of procedure and the results. Your doctor will discuss this with you. CALL YOUR DOCTOR FOR ANY OF THE FOLLOWING: *If bleeding from the puncture site occurs- Apply gentle pressure to site with clean cloth and call your doctor or EMS. * If a knot or lump forms under the skin, increases in size, or causes pain. * If bruising appears to be worsening or moving further down your leg instead of disappearing. * Temperature above 101 F. CARE OF YOUR GROIN INCISION; * Bruising or purple discoloration of the skin near the puncture site is common. * You may shower only, no bathtub bathing for 5 days. Be careful to avoid slipping as your leg may feel stiff. * If a closure device was used on your femoral artery, please see the attached guide regarding care of the device and your leg. * Leave dressing on FOR 24 hours. CARE OF YOUR WRIST INCISION; * Bruising or purple discoloration of the skin near the puncture site is common. * You may shower. * DO NOT submerge wrist. * Leave dressing on FOR 24 hours. POORNIMA RAMSEY MD [facility] Jun 27, 2022 11:09
[2022-06-27] MEDS ORDERED: PATIENT MAY USE OWN MEDS, ALL PO SCH (11:15)
--- NOTE | 2022-06-27 11:26 | CARDIAC CATHETERIZATION ---
DATE OF SERVICE: 06/27/2022 CARDIAC CATHETERIZATION REPORT The patient is a 72-year-old gentleman who is known to have coronary artery disease. He has had stenting of the left anterior descending several years ago. He has been experiencing chest discomfort. Chest pains have been persistent and have caused him lot of anxiety that the source of chest pain is coronary arteries. Accordingly, cardiac catheterization was carried out today after having obtained an informed consent. DESCRIPTION OF PROCEDURE: He was brought to the cardiac catheterization laboratory in a fasting state. Right groin was prepared and draped in the usual sterile fashion. Lidocaine 1% was used for local anesthesia. Modified Seldinger technique was used to advance a 5-Kittitian sheath in right femoral artery, 5-Kittitian JL4 catheter for left angiography, 5-Kittitian JR4 catheter for right coronary angiography, 5-Kittitian pigtail catheter was used for left heart catheterization and left ventricular angiography. Angiography of the right femoral artery was carried out through the sheath. Mynx was used to achieve hemostasis. He tolerated the procedure well. HEMODYNAMICS: Left ventricular end-diastolic pressure following coronary angiography was 8 mmHg. There is no significant pressure gradient on pullback across the aortic valve. Ascending aortic pressure was 114/65 with a mean of 84 mmHg. CORONARY ANGIOGRAPHY: Left main coronary artery is free of significant disease. Left anterior descending artery has a long stented segment that involves the proximal and mid portions of the left anterior descending. It does not exhibit any significant in-stent restenosis. The left circumflex artery does not exhibit significant disease. The right coronary artery does not exhibit any significant disease. Right coronary artery is dominant. LEFT VENTRICULAR ANGIOGRAPHY: Left ventricular angiography was carried out in the right anterior oblique projection. Global left ventricular systolic function is normal. No regional wall motion abnormalities seen. Left ventricular ejection fraction is approximately 60%. CONCLUSIONS: 1. No angiographically significant obstructive coronary artery disease. There is a long segment of the proximal and mid left anterior descending artery that has previously been stented and this does not exhibit any significant in-stent restenosis. 2. Normal global left ventricular systolic function with ejection fraction approximately 60%. 3. Normal left ventricular end-diastolic pressure. DISCUSSION AND RECOMMENDATIONS: Based on results of the study, chest discomfort does not appear to be of cardiac origin. He is known to have coronary artery disease. Continued risk factor modification is advised. Current regimen is being continued. Outpatient followup is advised. Job ID: [id number] DocumentID: [id number] Dictated Date: 06/27/2022 11:04:38 Warehouse Technician Date: 06/27/2022 11:25:38 Dictated By: POORNIMA GRAVES MD, MA, FACP, FACC, MTDD
== END 2022-06-27 14:37 | disposition home or self-care (01) ==
LOC: CATH 06:42 → SDC 11:15 → CATH 14:37
PROVIDERS: ATTEND Internal Medicine Cardiovascular Disease
DX: I25.10 Atherosclerotic heart disease of native coronary artery without angina pectoris (principal); Z87.891 Personal history of nicotine dependence; E78.2 Mixed hyperlipidemia; I65.23 Occlusion and stenosis of bilateral carotid arteries; Z79.899 Other long term (current) drug therapy
CPT/HCPCS: 80053; 80061; 85027; 85610; 85730; 87081; 93005; 93458; C1760; C1894; 36415